=== PATIENT | male | born 1955 | race Asian ===

== ENCOUNTER 2018-03-17 16:04 | Outpatient (RCR) | payer OTHER, MEDICARE, MEDICAID, SELFPAY ==
--- NOTE | 2018-03-17 15:10 | PT.OTN ---
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 (03/17/18) Muscle weakness (generalized) (03/17/18) Paralytic gait (03/17/18) Physical Therapy Treatment Note PT-OP-A Visit Information Start: 03/17/18 14:45 Freq: Status: Active Protocol: Document 03/17/18 14:47 TMS (Rec: 03/17/18 15:10 TMS [email or web address]) Out-Patient Physical Therapy Visit Information Visit Information Visit Type Treatment Note Visit Start Time 11:45 Visit Stop Time 12:20 Total Visit Minutes 35 Visit Number Number of ADMINISTRATIVE FELLOW Visits 2 PT-OP-C Subjective Start: 03/17/18 14:45 Freq: Status: Active Protocol: Document 03/17/18 14:47 TMS (Rec: 03/17/18 15:10 TMS [email or web address]) OP-PT Subjective Patient Comments Patient Comments Daughter in law present for family training. Daughter in law states pt. was pushing heavily on cane with gait today, not walking as well. PT-OP-S Aquatic Treatment Start: 03/17/18 14:45 Freq: Status: Active Protocol: Document 03/17/18 14:47 TMS (Rec: 03/17/18 15:10 TMS [email or web address]) Aquatics Treatment Pool Entry/Exit Pool Entry/Exit Method Stairs Assistance Contact Guard Assistance Water Walking Sideways Water Level Chest Level Comments 1 pound weight on right ankle. Forwards Water Level Chest Level Level of Assistance Minimal Assistance Comments 1 pound weight on right ankle. Lower Extremity Stretches 1 Details Right hamstring Body Position Standing Water Level Waist Level Comments Manual stretching with pt. standing against wall. Upper Extremity Exercises 2 Details Right elbow stretch into extension Body Position Standing Comments Manually 1 Details Right shoulder abduction Body Position Standing Water Level Waist Level Comments Manually [place] Activities [place] Activities Bicycle Equipment Square blue float/neck float Duration 15 minutes Comments Min-Mod-A manual assist to keep aligned, 1 pound weight on bilateral ankles to help with alignment. Swim Strokes Backstroke Other Equipment Used Square blue float/ neck float Laps/Duration 10 minutes Other 1 Details Daughter in law Clara was instructed on how to assist. PT-OP-T Assessment and Plan Start: 03/17/18 14:45 Freq: Status: Active Protocol: Document 03/17/18 14:47 TMS (Rec: 05/14/18 15:10 TMS [email or web address]) Physical Therapy Assessment Assessment Summary Assessment Pt. had increased difficulty maintaining alignment in deep water today, decreased tone noted in right U.E. with stretching. Pt. was ready to stop therapy about 35 minutes, started walking up pool steps . When asked if he was having pain shook head yes and gestured to legs. Daughter in law aware, states he's not as stable with gait today. Physical Therapy Plan Frequency and Duration Frequency of Treatment 2x/Week Plan of Care Start Date 01/08/18 Plan of Care End Date 03/18/18 Next Visit Focus/Plan Next Visit Plan Continue with family training so family can assist pt. in pool. Daughter in law seemed comfortable with assisting him but will need continued training.
--- NOTE | 2018-09-21 11:18 | PT.OPDS ---
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 (03/17/18) Muscle weakness (generalized) (03/17/18) Paralytic gait (03/17/18) Provider Visit Care Team Role Provider Type Delfino Epstein MD Attending Provider Physician Family Provider Primary Care Provider Specialty: Family Practice Address: [address] [place] [address] Email: [email or web address] Visit Number Visit Number Discharge Summary PT-OP-C Subjective Start: 03/17/18 14:45 Freq: Status: Active Protocol: Document 03/17/18 14:47 TMS (Rec: 03/17/18 15:10 TMS [email or web address]) OP-PT Subjective Patient Comments Patient Comments Daughter in law present for family training. Daughter in law states pt. was pushing heavily on cane with gait today, not walking as well. PT-OP-T Assessment and Plan Start: 03/17/18 14:45 Freq: Status: Active Protocol: Document 09/21/18 11:17 SAK (Rec: 09/21/18 11:18 SAK [id number]) Physical Therapy Plan Discharge Physical Therapy Discharge Reasons Goals Met Discharge Comments Patient's family was instructed in how to assist patient with aquatic exercise program. They are independent . No further PT need at this time. May benefit from further PT in the future.
== END 2018-10-20 11:07 ==
LOC: PHYS 16:04
PROVIDERS: Family Provider Family Medicine; PCP Family Medicine; Visit Provider Family Medicine
DX: I63.512 Cerebral infarction due to unspecified occlusion or stenosis of left middle cerebral artery (principal); R26.1 Paralytic gait; M62.81 Muscle weakness (generalized)
CPT/HCPCS: 97113

== ENCOUNTER → 2018-05-19 11:09 | Outpatient (CLI) | payer OTHER, MEDICARE, MEDICAID, SELFPAY ==
[2018-05-19 12:45] LABS: Hemoglobin A1C% w Est Avg Glu 6.5 % (4.0-6.0)
[2018-05-19 12:55] LABS: BUN Creatinine Ratio 12.2 (6-22); Blood Urea Nitrogen 11 mg/dL (9-20); Calcium 8.8 mg/dL (8.4-10.2); Carbon Dioxide 29 mmol/L (22-32); Chloride 98 mmol/L (98-107); Estimated Glomerular Filt Rate > 60.0 mL/min (>60); Glucose 203 mg/dL (80-110); HEMOLYSIS < 15 (0-50); Potassium 4.2 mmol/L (3.4-5.1); Sodium 135 mmol/L (137-145)
[2018-05-19 13:24] LABS: Prostate Specific Antigen 0.539 ng/mL (0.10-4.00)
[2018-05-19 13:39] LABS: TSH w/ Reflex to FT4 0.32 uIU/mL (0.47-4.68)
[2018-05-19 14:21] LABS: Free T4, Direct Thyroxine 1.52 ng/dL (0.78-2.19)
== END ==
PROVIDERS: Family Provider Family Medicine; PCP Family Medicine; Visit Provider Urology
DX: N40.1 Benign prostatic hyperplasia with lower urinary tract symptoms (principal); E11.9 Type 2 diabetes mellitus without complications
CPT/HCPCS: 36415; 80048; 83036; 84153; 84439; 84443

== ENCOUNTER 2018-09-01 13:30 | Outpatient (RCR) | payer OTHER, MEDICARE, MEDICAID, SELFPAY ==
--- NOTE | 2018-04-16 13:41 | OT.OP.EVAL ---
Visit Care Team Role Provider Type Delfino Epstein MD Attending Provider Physician Family Provider Primary Care Provider Specialty: Family Practice Address: [address] [place] [address], [id number] Email: [email or web address] Occupational Therapy Initial Evaluation OT Outpatient Adult Evaluation Start: 04/14/18 14:28 Freq: Status: Active Protocol: Document 04/14/18 14:29 AMS (Rec: 04/14/18 14:29 AMS [email or web address]) General Information Referring Physician Delfino Epstein MD Reason for Referral Evaluate and treat per protocol Precautions PACEMAKER Visit Number 11/13 (g-codes); visits authorized per year Plan of Care Dates 04/14/18-07/07/18 Insurance Information 42 visits authorized per year; g-codes required Identification Confirmed Yes Parent/Guardian Concerns Bilingual Sales Assistant: increasing pain/ discomfort w/ A for ADLs Parent/Guardian Goals Caretakers: concerns re: posture Medical History Pt is a 62 year-old male presenting to outpatient OT four years s/p CVA w/ resulting right-sided hemiparesis. PMH: CVA; DM II; depression; HTN; [place]; Pacemaker; OA Previous Therapy/Therapies Yes History of Therapy Previous outpt OT; has UE sling to address right shoulder subluxation. However, lung puller denied current compliance w/ wearing of sling . Current Therapy/Therapies Yes: has outpt PT Social History Bilingual Sales Assistant reported that the patient and his have recently moved into [facility]'s Mother's home which has likely led to the decline in patient 's sitting and standing posture, as well as increasing complaints of pain/discomfort w/ self care (due to decreased proper positioning of upper extremity and decreased passive ranging of upper extremity). ADLs Comments Impaired; family and lung puller assists IADLs Comments Impaired; family and lung puller assists Cognition Comments Impaired Comments Impaired Posture Comments Impaired sitting; standing Comments Impaired Observations Spastic posturing of right UE in sitting and standing. Neglect of R UE. (+) subluxation of R shoulder; (+) R shoulder depression; (+ ) R shoulder IR; (+) R elbow flexion; (+) R forearm pronation; (+) R wrist in flexion w/ fingers in fist; Impaired R scapular mobility; lateral trunk shortening. Unable to execute R shoulder shrugs/circles; trace R scapular retraction Range of Motion Upper Extremity Functional Limits Right Impaired Impairments L UE AROM WFL Neurological Assessment - Adult Spasticity R UE spasticity. (-) self- directed tone management observed. (-) tolerance for assist w/ tone management. ROM - Shoulder Shoulder Left Shoulder ROM WFL Yes Forearm ROM Testing Position Sitting Right Active Shoulder ROM WFL No Forearm ROM Testing Position Sitting Shoulder Flex AROM (degrees) 0-35 Query Text: Shoulder Flex PROM (degrees) 0-90 Query Text: Shoulder Ext AROM (degrees) 0-0 Shoulder Ext PROM (degrees) 0-40 Shoulder Abd AROM (degrees) 0-0 Shoulder Abd PROM (degrees) 0-60 Shoulder ER AROM (degrees) 0-0 Shoulder ER PROM (degrees) 0-60 Comments Passive and active ROM measurements taken within pain -free ROM. ROM - Elbow/Forearm Elbow/Forearm Measured in Degrees Left Elbow/Forearm ROM WFL Yes ROM Testing Position Sitting Right Elbow/Forearm ROM WFL No ROM Testing Position Sitting Elbow Flex AROM (degrees) -45-110 (60) Elbow Flex PROM (degrees) -45-135 (90) Elbow Ext AROM (degrees) 0 Elbow Ext PROM (degrees) 135-45 (90) Forearm Pron AROM (degrees) 0-90 Forearm Sup AROM (degrees) 0 Forearm Sup PROM (degrees) 0 (did not tolerate) ROM - Wrist Wrist Range of Motion Measured in Degrees Left ROM Testing Position Sitting Wrist ROM WFL Yes Right ROM Testing Position Sitting Wrist Flex AROM (degrees) 0 Wrist Flex PROM (degrees) 0 (did not tolerate) Wrist Ext AROM Fingers Open (degrees) 0 Wrist Ext PROM Fingers Open (degrees) 0 (did not tolerate) Wrist Ext AROM Fingers Flexed (degrees) 0 Wrist Ext PROM Fingers Flexed (degrees) 0 (did not tolerate) Ulnar Deviation AROM (degrees) 0 Ulnar Deviation PROM (degrees) 0 (did not tolerate) Radial Deviation AROM (degrees) 0 Radial Deviation PROM (degrees) 0 (did not tolerate) Wrist ROM WFL No Goals Objective Measurements (-) functional abilities of right hand; did not tolerate PROM of digits date of evaluation. Will assess at time of next treatment session . Treatment Home exercise program. Patient and lung puller education re: positioning of R UE at rest. Scapular retraction/squeezes in standing and/or sitting as tolerated by patient. Sitting options to promote upright sitting posture and proper positioning of UE to maintain UE AROM and minimize formation of contractures which would negatively impact family/ caretakers' abilities to assist patient with functional tasks. Short Term Goals 1. Patient will demonstrate 20 degrees active right elbow extension. 2. Patient will demonstrate 10 degrees active right shoulder extension. 3. Patient will be able to execute x 10 consecutive bilateral scapular squeezes in order to improve upon static sitting posture. Sap Bpc Architect Goals 1. Patient and lung puller will be modified independent with execution of right upper extremity home exercise program utilizing provided written and visual instructions. 2. Patient and lung puller will verbalize 100% understanding in regards to positioning of right upper extremity at rest to maintain available ROM and/ or minimize further loss of ROM. 3. Patient will be able to obtain and maintain upright static sitting posture x 3 minutes in chair with bilateral arm rests, without rest breaks and without right upper extremity resting on stomach, requiring minimal verbal cues from therapist. 3. Patient will demonstrate 30 degrees active right shoulder extension. Assessment/Plan Patient Response Fair Rehabilitation Potential Fair Impairments Identified ADLs Balance Body Mechanics Cognition Coordination/Dexterity Functional Activities Motor Function Pain Weakness Posture Range of Motion Recreational Activities Meaningful Activities Spasticity Stiffness Insight Soft Tissue Mobility Motor Planning Eye-Hand Coordination Treatment Assessment Pt is a 62 year-old male presenting to outpatient OT four years s/p CVA w/ resulting right-sided hemiparesis. PMH: CVA; DM II; depression; HTN; [place]; Pacemaker ; OA. Bilingual Sales Assistant reported that the patient and his have recently moved into [facility]'s Mother's home which has likely led to the decline in patient 's sitting and standing posture, as well as increasing complaints of pain/discomfort w/ self care (due to decreased proper positioning of upper extremity and decreased passive ranging of upper extremity). Findings: Decreased ROM of right upper extremity; neglect of R UE; subluxation of right shoulder; (-) use of subluxation sling with mobility; decreased insight; impaired body awareness and orientation to midline; decreased functional independence; impaired motor planning; spasticity; weakness ; impaired posture in sitting and standing; and reported increasing pain/discomfort w/ assist by lung puller's with completion of functional ADL tasks. Outpt OT recommended to address these areas w/ focus on lung puller education to maintain UE AROM and minimize formation of contractures which would negatively impact family/caretakers' abilities to assist patient with functional tasks. Home Exercise Program Patient and lung puller education re: positioning of R UE at rest. Scapular retraction/squeezes in standing and/or sitting as tolerated by patient. Sitting options to promote upright sitting posture and proper positioning of UE to maintain UE AROM and minimize formation of contractures which would negatively impact family/ caretakers' abilities to assist patient with functional tasks. Reviewed with Patient Home Exercise Program Patient Understanding Fair Comment 12 weeks Treatment Frequency Once a Week Treatment Emphasis Next Session Assess ROM of hand as tolerated Therapeutic Contents Active Range of Motion Adaptive Equipment Education Client Education Cognitive Skills Development Functional Activities Home Exercise Program Joint Protection Manual Therapy Education Neuromuscular Re-Education Self-Care Stretching/Flexibility Activities Therapeutic Activities Therapeutic Exercises Modalities Sensory Re-education Modalities As Needed As Described Patient Instruction Home Exercise Program Plan of Care Questions/Concerns Comment Consult w/ PT Please Sign and Return: I have reviewed this Plan of Care and certify that the skilled therapy services above are required to meet the patient?s needs. Physician Signature Date Printed Name and Credentials Clinical Instructor Signature Printed Name and Credentials
--- NOTE | 2018-04-28 15:36 | OT.OP.TRT ---
Visit Care Team Role Provider Type Delfino Epstein MD Attending Provider Physician Family Provider Primary Care Provider Specialty: Family Practice Address: [address] [place] [address], [address] Email: [email or web address] Occupational Therapy Treatment Note OT Outpatient Treatment Note - Adult Start: 04/28/18 15:20 Freq: Status: Active Protocol: Document 04/28/18 15:20 AMS (Rec: 04/28/18 15:36 AMS [email or web address]) OT Outpatient Adult Treatment Note Session Time Visit Start Time 13:30 Visit Stop Time 14:18 Total Visit Minutes 48 Visit Information Visit Number 12/14 (g-codes); visits authorized per year Plan of Care Dates 04/14/18-07/07/18 Insurance Information 42 visits authorized per year; g-codes required Setting Treatment Setting Outpatient Care Visit Type Note Type Treatment Note General Information General Information Pt is a 62 year-old male presenting to outpatient OT four years s/p CVA w/ resulting right-sided hemiparesis. PMH: CVA; DM II; depression; HTN; [place]; Pacemaker; OA - Subjective Identification Type Name Identification Reconciled With Medical Record Others Present Family Observations Patient was accompanied by his to OT treatment session. Chief Complaint(s) Restricts Loss of Function Marked Degree Patient/Caregiver Compliance with Home Good Exercise Program Comments w/ family support - Objective Objective Measurements Please see below for progress towards meeting established OT goals. Improved tolerance for PROM. Improved ability to execute scapular pinches x 3 sets of 10 repetitions. Max verbal cues required relative to sitting and standing posture. Poor self-directed tone management/execution of exercises. However, (+) caregiver/family support. Short Term Goals 1. Patient will demonstrate 20 degrees active right elbow extension. 04/28/18= 25% met 2. Patient will demonstrate 10 degrees active right shoulder extension. 04/28/18= 25% met 3. Patient will be able to execute x 10 consecutive bilateral scapular squeezes in order to improve upon static sitting posture. 04/28/18= 25% met Fdc Goals 1. Patient and java performance engineer will be modified independent with execution of right upper extremity home exercise program utilizing provided written and visual instructions. 04/28/18= 25% met 2. Patient and java performance engineer will verbalize 100% understanding in regards to positioning of right upper extremity at rest to maintain available ROM and/ or minimize further loss of ROM. 04/28/18= 25% met 3. Patient will be able to obtain and maintain upright static sitting posture x 3 minutes in chair with bilateral arm rests, without rest breaks and without right upper extremity resting on stomach, requiring minimal verbal cues from therapist. = 25% met 4. Patient will demonstrate 30 degrees active right shoulder extension. 04/28/18= 25% met - Treatment 3 Descriptor Environmental positioning R shoulder propped in sh abd on bedside table x 7 min w/ heat Skin intact pre- and post- treatment 2 Descriptor Tone Management Resistance provided by therapist 1 Descriptor HEP/Education Instructed in positioning of UE away from body w/ ues of heat on shoulder Scapular pinches, lateral neck stretch (focus on positioning of head relative to trunk - tendency towards chin protrusion), shoulder extension, shoulder elevation/ roll-backs. Complexity Upgraded Exercises 8 Descriptor Lateral neck stretch Side Right Body Position Sitting Sets 3 Repetitions 5-8 sec hold 7 Descriptor Shoulder flexion/extension Pendulum PROM Side Right 6 Descriptor Shoulder abduction PROM Side Right 5 Descriptor Shoulder extension Side Right Body Position Sitting Sets 3 Repetitions 10 4 Descriptor Elbow extension Side Right Body Position Sitting Sets 3 Repetitions 10 3 Descriptor Backwards shoulder shrugs Side Both Body Position Sitting Sets 3 Repetitions 10 2 Descriptor Shoulder elevation Side Both Body Position Sitting Sets 3 Repetitions 10 1 Descriptor Scapular pinches Side Both Body Position Sitting Sets 3 Repetitions 10 - Assessment Patient Response to Treatment Fair Rehab Potential Fair Impairments Identified ADLs Balance Body Mechanics Cognition Contractures Coordination/Dexterity Flexibility Functional Activities Motor Function Pain Weakness Posture Range of Motion Recreational Activities Meaningful Activities Spasticity Stiffness Insight Soft Tissue Mobility Motor Planning Eye-Hand Coordination Assessment of Improvement Improved tolerance for PROM. Improved ability to execute scapular pinches x 3 sets of 10 repetitions. Max verbal cues required relative to sitting and standing posture. Poor self-directed tone management/execution of exercises. However, (+) caregiver/family support. Home Exercise Program Advanced. Instructed in positioning of UE away from body with use of heat on shoulder. Reviewed scapular pinches, lateral neck stretch (focus on positioning of head relative to trunk - tendency towards chin protrusion), shoulder extension, shoulder elevation/roll-backs. Patient and denied questions. Reviewed with Patient/Caregiver Goals Progress Being Made Home Exercise Program Patient/Caregiver Understanding Good - Plan Therapy Recommendations Continue with Current Program Advance per Rehabilitation Protocol Additional Therapy Recommendations Consult w/ PT
--- NOTE | 2018-05-05 15:09 | OT.OP.TRT ---
Visit Care Team Role Provider Type Delfino Epstein MD Attending Provider Physician Family Provider Primary Care Provider Specialty: Family Practice Address: [address] [place] [address], [id number] Email: [email or web address] Occupational Therapy Treatment Note OT Outpatient Treatment Note - Adult Start: 04/28/18 15:20 Freq: Status: Active Protocol: Document 05/05/18 14:54 AMS (Rec: 05/05/18 15:08 AMS [email or web address]) OT Outpatient Adult Treatment Note Session Time Visit Start Time 13:35 Visit Stop Time 14:20 Total Visit Minutes 45 Visit Information Visit Number 01/11 (g-codes); 3/ visits authorized per year Plan of Care Dates 04/14/18-07/07/18 Insurance Information 42 visits authorized per year; g-codes required Setting Treatment Setting Outpatient Care Visit Type Note Type Treatment Note General Information General Information Pt is a 62 year-old male presenting to outpatient OT four years s/p CVA w/ resulting right-sided hemiparesis. PMH: CVA; DM II; depression; HTN; [place]; Pacemaker; OA - Subjective Identification Type Name Identification Reconciled With Medical Record Others Present Family Observations Patient was accompanied by his to OT treatment session. He was sleeping more this past weekend. His blood sugar was [address] too high per . Chief Complaint(s) Restricts Loss of Function Marked Degree Patient/Caregiver Compliance with Home Good Exercise Program Comments w/ family support - Objective Objective Measurements Please see below for progress towards meeting established OT goals. Improved tolerance for PROM; improved sitting and standing static posture. Poor trunk rotation. Poor neck mobility; decreased active use of available ROM. Decreased visual fixation w/ engagement in nonverbal exchanges w/ therapist and/or individuals in his environment. Whole body movements w/ keeping body in central plane. Poor self- directed tone management/ execution of exercises; however, patient does have (+) caregiver/family support. Improved neck rotation, neck extension, trunk rotation, lateral trunk lengthening L side, lateral neck flexion following education and practice in treatment session. Short Term Goals 1. Patient will demonstrate 20 degrees active right elbow extension. 05/05/18= 25% met 2. Patient will demonstrate 10 degrees active right shoulder extension. 05/05/18= 25% met 3. Patient will be able to execute x 10 consecutive bilateral scapular squeezes in order to improve upon static sitting posture. 05/05/18= 50% met Linotype Worker Goals 1. Patient and new accounts banking representative will be modified independent with execution of right upper extremity home exercise program utilizing provided written and visual instructions. 05/05/18= 25% met 2. Patient and new accounts banking representative will verbalize 100% understanding in regards to positioning of right upper extremity at rest to maintain available ROM and/ or minimize further loss of ROM. 05/05/18= 25% met 3. Patient will be able to obtain and maintain upright static sitting posture x 3 minutes in chair with bilateral arm rests, without rest breaks and without right upper extremity resting on stomach, requiring minimal verbal cues from therapist. 05/05/18= 50% met 4. Patient will demonstrate 30 degrees active right shoulder extension. 05/05/18= 25% met - Treatment 4 Descriptor Functional movements - neck/ trunk Focus on visual fixation w/ engagement in interactions Complexity Upgraded 3 Descriptor Environmental positioning R shoulder propped in sh abd on bedside table, elbow ext, forearm neutral x 10 min w/ heat Education re: positioning in at least neutral forearm Skin intact pre- and post- treatment Complexity Upgraded 2 Descriptor Tone Management Resistance provided by therapist 1 Descriptor HEP/Education Instructed in positioning of UE in forearm in neutral - thumb up Trunk rotation Neck movement Lateral trunk extension Visual fixation w/ tracking via environmental modifications as needed to encourage trunk movement Complexity Upgraded Exercises 8 Descriptor Neck ext Neck rotation Lateral neck flex/ext Side Both Body Position Sitting Sets 2 Repetitions 5-8 sec hold Modifications Required Yes Complexity Upgraded 7 Descriptor Shoulder - PROM Flexion/extension ER Hor abd Abd Side Right Body Position Sitting Complexity No Change 6 Descriptor Shoulder Pendulum Shrugs Rolls backwards Side Both Body Position Sitting Sets 2 Repetitions 10 Complexity Upgraded 4 Descriptor Elbow extension Side Right Body Position Sitting Sets 3 Repetitions 10 Complexity No Change 3 Descriptor Trunk rotation Lat trunk ext/flex Side Both Body Position Sitting Sets 1 Repetitions 5 Complexity Upgraded 2 Descriptor Trunk stretch Ball - leaning back Side Both Body Position Sitting Sets 1 Repetitions 5 Complexity Upgraded 1 Descriptor Scapular pinches Side Both Body Position Sitting Sets 3 Repetitions 10 Complexity No Change - Assessment Patient Response to Treatment Fair Rehab Potential Fair Impairments Identified ADLs Balance Body Mechanics Cognition Contractures Coordination/Dexterity Flexibility Functional Activities Motor Function Pain Weakness Posture Range of Motion Recreational Activities Meaningful Activities Spasticity Stiffness Insight Soft Tissue Mobility Motor Planning Eye-Hand Coordination Assessment of Improvement Improved tolerance for PROM; improved sitting and standing static posture. Poor trunk rotation. Poor neck mobility; decreased active use of available ROM. Decreased visual fixation w/ engagement in nonverbal exchanges w/ therapist and/or individuals in his environment. Whole body movements w/ keeping body in central plane. Poor self- directed tone management/ execution of exercises; however, patient does have (+) caregiver/family support. Improved neck rotation, neck extension, trunk rotation, lateral trunk lengthening L side, lateral neck flexion following education and practice in treatment session. Home Exercise Program Advanced. Instructed in positioning of UE in forearm in neutral with thumb up with shoulder in abduction w/ use of heat. Instructed in modification of environment/ activities to support trunk rotation and neck movement. Reviewed with Patient/Caregiver Goals Progress Being Made Home Exercise Program Patient/Caregiver Understanding Good - Plan Therapy Recommendations Continue with Current Program Advance per Rehabilitation Protocol Additional Therapy Recommendations Consult w/ PT
--- NOTE | 2018-05-13 08:17 | OT.OP.TRT ---
Visit Care Team Role Provider Type Delfino Epstein MD Attending Provider Physician Family Provider Primary Care Provider Specialty: Family Practice Address: [address] [place] [address], [id number] Email: [email or web address] Occupational Therapy Treatment Note OT Outpatient Treatment Note - Adult Start: 04/28/18 15:20 Freq: Status: Active Protocol: Document 05/12/18 14:30 AMS (Rec: 05/13/18 08:16 AMS [email or web address]) OT Outpatient Adult Treatment Note Session Time Visit Start Time 13:35 Visit Stop Time 14:20 Total Visit Minutes 45 Visit Information Visit Number 02/11 (g-codes); visits authorized per year Plan of Care Dates 04/14/18-07/07/18 Insurance Information 42 visits authorized per year; g-codes required Setting Treatment Setting Outpatient Care Visit Type Note Type Treatment Note General Information General Information Pt is a 62 year-old male presenting to outpatient OT four years s/p CVA w/ resulting right-sided hemiparesis. PMH: CVA; DM II; depression; HTN; [place]; Pacemaker; OA - Subjective Identification Type Name Identification Reconciled With Medical Record Others Present Family Observations Patient was accompanied by his to OT treatment session. He has sleeping a lot more again. I don't know if he has a bug or not so I am watching him very closely per . Chief Complaint(s) Restricts Loss of Function Marked Degree Patient/Caregiver Compliance with Home Good Exercise Program Comments w/ family support - Objective Objective Measurements Please see below for progress towards meeting established OT goals. Improved tolerance for PROM; improved sitting posture w/ cueing to sit away from back of chair. Education re: seating in the home revisited. Decreased active trunk rotation w/ functional movement. Decreased active use of available ROM relative to trunk/neck to interact w/ environment; (+) guarding noted in standing. Chin protrusion, forward neck flexion, rounding of shoulders noted w/ static standing w/ avoidance of full neck extension. believes that he is 'afraid of falling and he thinks he will fall if he brings his neck back'. Improved visual fixation w/ engagement in nonverbal exchanges w/ therapist and/or individuals in his environment compared to previous treatment session. Poor self- directed tone management/ execution of exercises; however, patient does have (+) caregiver/family support and requires cueing. Decreased ability to actively extend elbow; poor grasping of objects. Upgraded exercises/ activities appropriately. Short Term Goals 1. Patient will demonstrate 20 degrees active right elbow extension. 7= 25% met 2. Patient will demonstrate 10 degrees active right shoulder extension. 7= 25% met 3. Patient will be able to execute x 10 consecutive bilateral scapular squeezes in order to improve upon static sitting posture. 7= 50% met Unit Control Clerk Goals 1. Patient and reservoir caretaker will be modified independent with execution of right upper extremity home exercise program utilizing provided written and visual instructions. 7= 25% met 2. Patient and reservoir caretaker will verbalize 100% understanding in regards to positioning of right upper extremity at rest to maintain available ROM and/ or minimize further loss of ROM. 05/05/18= 25% met 3. Patient will be able to obtain and maintain upright static sitting posture x 3 minutes in chair with bilateral arm rests, without rest breaks and without right upper extremity resting on stomach, requiring minimal verbal cues from therapist. 712/22= 50% met 4. Patient will demonstrate 30 degrees active right shoulder extension. 05/05/18= 25% met - Treatment 4 Descriptor Functional movements - neck/ trunk Modifications Required Yes Complexity No Change 3 Descriptor Environmental positioning R shoulder propped in sh abd on bedside table, elbow ext, forearm neutral x 10 min w/ heat Skin intact pre- and post- treatment Complexity No Change 2 Descriptor Tone Management Resistance provided by therapist Modifications Required Yes Complexity No Change 1 Descriptor HEP/Education Instructed in positioning of UE Trunk rotation Neck movement Lateral trunk extension Visual fixation Auditory feedback w/ grasp w/ elbow ext Modifications Required Yes Complexity Upgraded Exercises 8 Descriptor Neck ext Neck rotation Lateral neck flex/ext Side Both Body Position Sitting Sets 2 Repetitions 5-8 sec hold Modifications Required Yes Complexity Upgraded 7 Descriptor Shoulder - PROM Flexion/extension ER Hor abd Abd Side Right Body Position Sitting Modifications Required Yes Complexity No Change 6 Descriptor Shoulder Pendulum Shrugs Rolls backwards Side Both Body Position Sitting Sets 1 Repetitions 10 Modifications Required Yes Complexity No Change 4 Descriptor Elbow extension Auditory feedback - cylindrical grasp Side Right Body Position Sitting Sets 3 Repetitions 10 Modifications Required Yes Complexity Upgraded 3 Descriptor Trunk rotation Lat trunk ext/flex Trunk extension Trunk ext L --> R shift back to center Side Both Body Position Sitting Sets 1 Repetitions 10 Modifications Required Yes Complexity Upgraded 2 Descriptor Trunk stretch Ball - leaning back Side Both Body Position Sitting Sets 1 Repetitions 5 Modifications Required Yes Complexity Upgraded 1 Descriptor Scapular pinches w/ sh ext w/ rowing static squeezing sitting Side Both Body Position Sitting Sets 1 Repetitions 10 Modifications Required Yes Complexity Upgraded - Assessment Patient Response to Treatment Fair Rehab Potential Fair Impairments Identified ADLs Balance Body Mechanics Cognition Contractures Coordination/Dexterity Flexibility Functional Activities Motor Function Pain Weakness Posture Range of Motion Recreational Activities Meaningful Activities Spasticity Stiffness Insight Soft Tissue Mobility Motor Planning Eye-Hand Coordination Assessment of Improvement Improved sitting posture w/ support. Decreased active trunk rotation w/ functional movement. Decreased active use of available ROM relative to trunk/neck to interact w/ environment; (+) guarding noted in standing. Improved visual fixation w/ engagement in nonverbal exchanges w/ therapist compared to previous treatment session. Poor self- directed tone management/ execution of exercises. Decreased ability to actively extend elbow. Decreased functional use of the UE; neglect of UE. Increased reliance on L UE. Home Exercise Program Advanced. Please refer to treatment section above for additional details. Patient and denied questions. Reviewed with Patient/Caregiver Goals Progress Being Made Home Exercise Program Patient/Caregiver Understanding Good - Plan Therapy Recommendations Continue with Current Program Advance per Rehabilitation Protocol Additional Therapy Recommendations Consult w/ PT
--- NOTE | 2018-06-03 12:54 | OT.OP.TRT ---
Visit Care Team Role Provider Type Delfino Epstein MD Attending Provider Physician Family Provider Primary Care Provider Specialty: Family Practice Address: [address] [place] [address], [id number] Email: [email or web address] Occupational Therapy Treatment Note OT Outpatient Treatment Note - Adult Start: 04/28/18 15:20 Freq: Status: Active Protocol: Document 06/02/18 14:22 AMS (Rec: 06/03/18 12:54 AMS [id number]) OT Outpatient Adult Treatment Note Session Time Visit Start Time 13:35 Visit Stop Time 14:21 Total Visit Minutes 46 Visit Information Visit Number 03/13 (g-codes); /42 visits authorized per year Plan of Care Dates 04/14/18-07/07/18 Insurance Information 42 visits authorized per year; g-codes required Setting Treatment Setting Outpatient Care Visit Type Note Type Treatment Note General Information General Information Pt is a 62 year-old male presenting to outpatient OT four years s/p CVA w/ resulting right-sided hemiparesis. PMH: CVA; DM II; depression; HTN; [place]; Pacemaker; OA - Subjective Identification Type Name Identification Reconciled With Medical Record Others Present Family Observations Patient was accompanied by his and granddaughter to OT session. We have just got his arthritis medication back on board. He seems to be listening up a little bit more now per . I finally just changed the seating arrangements in the house to help him with his posture. He has starting doing his neck exercises again that Mallory gave him per . Chief Complaint(s) Restricts Loss of Function Marked Degree Patient/Caregiver Compliance with Home Good Exercise Program Comments w/ family support - Objective Objective Measurements Please see below for progress towards meeting established OT goals. Improved tolerance for PROM; improved sitting posture w/ cueing to sit away from back of chair. Improving active trunk rotation in both directions while seated; thus, introduced standing trunk rotation/trunk flexion/ extension w/ use of visual mirror feedback. Chin protrusion, forward neck flexion, rounding of shoulders noted w/ static standing w/ avoidance of full neck extension; this is also observed in standing. Poor self-directed tone management/ execution of exercises. Decreased ability to actively extend elbow; poor grasping of objects. R sided neglect. Increased reliance on L UE. Short Term Goals 1. Patient will demonstrate 20 degrees active right elbow extension. 06/02/18= 25% met 2. Patient will demonstrate 10 degrees active right shoulder extension. 06/02/18= 25% met 3. Patient will be able to execute x 10 consecutive bilateral scapular squeezes in order to improve upon static sitting posture. = 50% met Care Home Goals 1. Patient and cigarette packer will be modified independent with execution of right upper extremity home exercise program utilizing provided written and visual instructions. 06/02/18= 25% met 2. Patient and cigarette packer will verbalize 100% understanding in regards to positioning of right upper extremity at rest to maintain available ROM and/ or minimize further loss of ROM. 06/02/18= 25% met 3. Patient will be able to obtain and maintain upright static sitting posture x 3 minutes in chair with bilateral arm rests, without rest breaks and without right upper extremity resting on stomach, requiring minimal verbal cues from therapist. = 50% met. 2 minutes 4. Patient will demonstrate 30 degrees active right shoulder extension. 05/05/18= 25% met - Treatment 4 Descriptor Functional movements - neck/ trunk Modifications Required Yes Complexity No Change 3 Descriptor Environmental positioning R shoulder propped in sh abd on bedside table, elbow ext, forearm neutral x 10 min w/ heat Skin intact pre- and post- treatment Complexity No Change 2 Descriptor Tone Management Resistance provided by therapist Modifications Required Yes Complexity No Change 1 Descriptor HEP Recommended trunk exercises in standing w/ visual mirror feedback utilized as needed/as available Modifications Required Yes Complexity Upgraded Exercises 8 Descriptor Neck ext Neck rotation Lateral neck flex/ext Side Both Body Position Sitting Sets 2 Repetitions 5-8 sec hold Modifications Required Yes Complexity No Change 7 Descriptor Shoulder - PROM Flexion/extension ER Hor abd Abd Side Right Body Position Sitting Modifications Required Yes Complexity No Change 6 Descriptor Shoulder Pendulum Shrugs Rolls backwards Side Both Body Position Sitting Sets 1 Repetitions 10 Modifications Required Yes Complexity No Change 4 Descriptor Elbow extension Side Right Body Position Sitting Sets 3 Repetitions 10 Modifications Required Yes Complexity No Change 3 Descriptor Trunk rotation Lat trunk ext/flex Trunk extension Trunk ext L --> R shift back to center Trunk twist standing Trunk tilts standing Side Both Body Position Sitting Sets 1 Repetitions 10 Modifications Required Yes Complexity Upgraded 2 Descriptor Trunk stretch Ball - not completed 06/02/18 Side Both Body Position Sitting Sets 1 Repetitions 5 Modifications Required Yes Complexity Upgraded 1 Descriptor Scapular pinches w/ sh ext w/ rowing static squeezing sitting Side Both Body Position Sitting Sets 1 Repetitions 10 Modifications Required Yes Complexity No Change - Assessment Patient Response to Treatment Fair Rehab Potential Fair Impairments Identified ADLs Balance Body Mechanics Cognition Contractures Coordination/Dexterity Flexibility Functional Activities Motor Function Pain Weakness Posture Range of Motion Recreational Activities Meaningful Activities Spasticity Stiffness Insight Soft Tissue Mobility Motor Planning Eye-Hand Coordination Assessment of Improvement Improving trunk rotation while seated; upgraded to standing w/ use of visual mirror feedback. Decreased active use of available ROM relative to UE/trunk. Poor self-directed tone management/execution of exercises. Decreased ability to actively extend elbow. Decreased functional use of the UE; neglect of UE. Increased reliance on L UE. Home Exercise Program Advanced. Please refer to treatment section above for additional details. Patient and denied questions. Reviewed with Patient/Caregiver Goals Progress Being Made Home Exercise Program Patient/Caregiver Understanding Good - Plan Therapy Recommendations Continue with Current Program Advance per Rehabilitation Protocol Additional Therapy Recommendations Consult w/ PT
--- NOTE | 2018-06-12 14:52 | OT.OP.TRT ---
Visit Care Team Role Provider Type Delfino Epstein MD Attending Provider Physician Family Provider Primary Care Provider Specialty: Family Practice Address: [address] [place] [address], [id number] Email: [email or web address] Occupational Therapy Treatment Note OT Outpatient Treatment Note - Adult Start: 04/28/18 15:20 Freq: Status: Active Protocol: Document 06/09/18 15:30 AMS (Rec: 06/12/18 14:52 AMS [id number]) OT Outpatient Adult Treatment Note Session Time Visit Start Time 13:35 Visit Stop Time 14:20 Total Visit Minutes 45 Visit Information Visit Number 04/13 (g-codes); visits authorized per year Plan of Care Dates 04/14/18-07/07/18 Insurance Information 42 visits authorized per year; g-codes required Setting Treatment Setting Outpatient Care Visit Type Note Type Treatment Note General Information General Information Pt is a 62 year-old male presenting to outpatient OT four years s/p CVA w/ resulting right-sided hemiparesis. PMH: CVA; DM II; depression; HTN; [place]; Pacemaker; OA - Subjective Identification Type Name Identification Reconciled With Medical Record Others Present Family Observations Patient was accompanied by his to OT treatment session. I feel like his sitting posture is getting better. He is still having a hard time in standing. Chief Complaint(s) Restricts Loss of Function Marked Degree Patient/Caregiver Compliance with Home Good Exercise Program Comments w/ family support - Objective Objective Measurements Please see below for progress towards meeting established OT goals. Improved tolerance for PROM; improved sitting posture w/ cueing to sit away from back of chair. Improving active trunk rotation in both directions while seated; thus, introduced standing trunk rotation/trunk flexion/ extension w/ use of visual mirror feedback. Chin protrusion, forward neck flexion, rounding of shoulders noted w/ static standing w/ avoidance of full neck extension; this is also observed in standing. Poor self-directed tone management/ execution of exercises. Decreased ability to actively extend elbow; poor grasping of objects. R sided neglect. Increased reliance on L UE. Short Term Goals 1. Patient will demonstrate 20 degrees active right elbow extension. 06/02/18= 25% met 2. Patient will demonstrate 10 degrees active right shoulder extension. 06/02/18= 25% met 3. Patient will be able to execute x 10 consecutive bilateral scapular squeezes in standing, without use of compensatory strategies and/or demonstration of loss of balance, in order to improve upon static standing posture. 06/09/18= GOAL UPGRADED GOALS MET: Pt executed 10 bilateral scapular squeezes in sitting. *MET 06/09/18 Residential Goals 1. Patient and bitumen plant operator will be modified independent with execution of right upper extremity home exercise program utilizing provided written and visual instructions. 06/02/18= 25% met 2. Patient and bitumen plant operator will verbalize 100% understanding in regards to positioning of right upper extremity at rest to maintain available ROM and/ or minimize further loss of ROM. 06/09/18= 25% met 3. Patient will demonstrate 30 degrees active right shoulder extension. 05/05/18= 25% met 4. Patient will be able to obtain and maintain upright static standing posture at midline x 1 minute, x 2 separate trials, in order to maximize functional success in standing with daily task completion with active use of the left upper extremity with object manipulation. 06/09/18= GOAL UPGRADED GOALS MET: Pt was able to maintain upright static sitting posture x 3 minutes without rest breaks. *MET 06/09/18 - Treatment 4 Descriptor Functional movements - neck/ trunk Modifications Required Yes Complexity No Change 3 Descriptor Environmental positioning R shoulder propped in sh abd on bedside table, elbow ext, forearm neutral x 10 min w/ heat Skin intact pre- and post- treatment Complexity No Change 2 Descriptor Tone Management Resistance provided by therapist Modifications Required Yes Complexity No Change 1 Descriptor HEP Orientation to midline Exercises in standing vs. sitting Modifications Required Yes Complexity Upgraded Exercises 9 Descriptor Orientation to midline 'x' shoulders out <-> back in Side Both Body Position Standing Sets 1 Repetitions 10 Complexity Upgraded 8 Descriptor Neck ext Neck rotation Lateral neck flex/ext Side Both Body Position Standing Sets 2 Repetitions 5-8 sec hold Modifications Required Yes Complexity Upgraded 7 Descriptor Shoulder - PROM Flexion/extension ER Hor abd Abd Side Right Body Position Sitting Modifications Required Yes Complexity No Change 6 Descriptor Shoulder Pendulum Shrugs Rolls backwards Side Both Body Position Standing Sets 1 Repetitions 10 Modifications Required Yes Complexity Upgraded 4 Descriptor Elbow extension Side Right Body Position Sitting Sets 3 Repetitions 10 Modifications Required Yes Complexity No Change 3 Descriptor Standing: Trunk rotation Lat trunk ext/flex Sitting: Trunk ext/neck ext Trunk ext L --> R shift back to center - 1 leg Side Both Sets 1 Repetitions 10 Modifications Required Yes Complexity Upgraded 2 Descriptor Trunk stretch Ball - not completed 06/02/18 Side Both Body Position Sitting Sets 1 Repetitions 5 Modifications Required Yes Complexity Upgraded 1 Descriptor Scapular pinches w/ sh ext w/ rowing Side Both Body Position Standing Sets 1 Repetitions 10 Modifications Required Yes Complexity Upgraded - Assessment Patient Response to Treatment Fair Rehab Potential Fair Impairments Identified ADLs Balance Body Mechanics Cognition Contractures Coordination/Dexterity Flexibility Functional Activities Motor Function Pain Weakness Posture Range of Motion Recreational Activities Meaningful Activities Spasticity Stiffness Insight Soft Tissue Mobility Motor Planning Eye-Hand Coordination Assessment of Improvement Improving sitting posture. Improving ability to maintain sitting posture. Impaired standing posture. Decreased orientation to midline. Decreased active use of available ROM relative to UE/ trunk. Poor self-directed tone management/execution of exercises. Decreased ability to actively extend elbow. Decreased functional use of the UE; neglect of UE. Increased reliance on L UE. Home Exercise Program Advanced. Please refer to treatment section above for additional details. Patient and denied questions. Reviewed with Patient/Caregiver Goals Progress Being Made Home Exercise Program Patient/Caregiver Understanding Good - Plan Therapy Recommendations Continue with Current Program Advance per Rehabilitation Protocol
--- NOTE | 2018-06-16 14:51 | OT.OP.TRT ---
Visit Care Team Role Provider Type Delfino Epstein MD Attending Provider Physician Family Provider Primary Care Provider Specialty: Family Practice Address: [address] [place] [address], [id number] Email: [email or web address] Occupational Therapy Treatment Note OT Outpatient Treatment Note - Adult Start: 04/28/18 15:20 Freq: Status: Active Protocol: Document 06/16/18 14:41 AMS (Rec: 06/16/18 14:49 AMS [email or web address]) OT Outpatient Adult Treatment Note Session Time Visit Start Time 13:35 Visit Stop Time 14:20 Total Visit Minutes 45 Visit Information Visit Number 05/13 (g-codes); visits authorized per year Plan of Care Dates 04/14/18-07/07/18 Insurance Information 42 visits authorized per year; g-codes required Setting Treatment Setting Outpatient Care Visit Type Note Type Treatment Note General Information General Information Pt is a 62 year-old male presenting to outpatient OT four years s/p CVA w/ resulting right-sided hemiparesis. PMH: CVA; DM II; depression; HTN; [place]; Pacemaker; OA - Subjective Identification Type Name Identification Reconciled With Medical Record Others Present Family Observations We are still working on his posture even though I have changed all the seating in the house per . Pt was accompanied by his to OT treatment session. Chief Complaint(s) Restricts Loss of Function Marked Degree Patient/Caregiver Compliance with Home Good Exercise Program Comments w/ family support - Objective Objective Measurements Please see below for progress towards meeting established OT goals. Improved sitting posture; however, trace/ minimal WB through R hip in static/dynamic sitting. Improved WB through R hip following isometric exercise at shoulder and pillow exercise. (+) Crossing of L LE over R LE. Discussed positioning options in the home to encourage weight shifting; recommended w/ crossing but also w/ both feet flat on floor to carry-over to [id number]. (+) rotation of whole body to the left. Shortening of R trunk due to unequal WB in sitting/standing . Chin protrusion, forward neck flexion, rounding of shoulders noted w/ static standing. Poor self-directed tone management/execution of exercises. Decreased ability to actively extend elbow; poor grasping of objects. R sided neglect. Increased reliance on L UE. Short Term Goals 1. Patient will demonstrate 20 degrees active right elbow extension. 06/02/18= 25% met 2. Patient will demonstrate 10 degrees active right shoulder extension. 06/02/18= 25% met 3. Patient will be able to execute x 10 consecutive bilateral scapular squeezes in standing, without use of compensatory strategies and/or demonstration of loss of balance, in order to improve upon static standing posture. 06/16/18= 50% met GOALS MET: Pt executed 10 bilateral scapular squeezes in sitting. *MET 06/09/18 [facility] Goals 1. Patient and pc tech will be modified independent with execution of right upper extremity home exercise program utilizing provided written and visual instructions. 06/16/18= 25% met 2. Patient and pc tech will verbalize 100% understanding in regards to positioning of right upper extremity at rest to maintain available ROM and/ or minimize further loss of ROM. 06/09/18= 25% met 3. Patient will demonstrate 30 degrees active right shoulder extension. 05/05/18= 25% met 4. Patient will be able to obtain and maintain upright static standing posture at midline x 1 minute, x 2 separate trials, in order to maximize functional success in standing with daily task completion with active use of the left upper extremity with object manipulation. 06/09/18= GOAL UPGRADED GOALS MET: Pt was able to maintain upright static sitting posture x 3 minutes without rest breaks. *MET 06/09/18 - Treatment 4 Descriptor Functional movements - neck/ trunk Modifications Required Yes Complexity No Change 3 Descriptor Environmental positioning R shoulder propped in sh abd on bedside table, elbow ext, forearm neutral x 10 min w/ heat Skin intact pre- and post- treatment Complexity No Change 2 Descriptor Tone Management Resistance provided by therapist Modifications Required Yes Complexity No Change 1 Descriptor HEP Orientation to midline Positioning Modifications Required Yes Complexity Upgraded Exercises 9 Descriptor Orientation to midline WB Isometric work Sitting/standing Side Both Body Position Standing Sets 1 Repetitions 10 Complexity Upgraded 8 Descriptor Neck ext Neck rotation Lateral neck flex/ext Side Both Body Position Standing Sets 2 Repetitions 5-8 sec hold Modifications Required Yes Complexity No Change 7 Descriptor Shoulder - PROM Flexion/extension ER Hor abd Abd Side Right Body Position Sitting Modifications Required Yes Complexity No Change 6 Descriptor Shoulder Pendulum Shrugs Rolls backwards Side Both Body Position Standing Sets 1 Repetitions 10 Modifications Required Yes Complexity No Change 4 Descriptor Elbow extension Side Right Body Position Sitting Sets 3 Repetitions 10 Modifications Required Yes Complexity No Change 3 Descriptor Standing: Trunk rotation Lat trunk ext/flex Sitting: Trunk ext/neck ext Trunk ext L --> R shift back to center - 1 leg TherBall sitting Side Both Sets 1 Repetitions 10 Modifications Required Yes Complexity Upgraded 1 Descriptor Scapular pinches w/ sh ext w/ rowing Side Both Body Position Standing Sets 1 Repetitions 10 Modifications Required Yes Complexity Upgraded - Assessment Patient Response to Treatment Fair Rehab Potential Fair Impairments Identified ADLs Balance Body Mechanics Cognition Contractures Coordination/Dexterity Flexibility Functional Activities Motor Function Pain Weakness Posture Range of Motion Recreational Activities Meaningful Activities Spasticity Stiffness Insight Soft Tissue Mobility Motor Planning Eye-Hand Coordination Assessment of Improvement Improving sitting posture. Improving ability to maintain sitting posture. Impaired standing posture. Decreased orientation to midline. Decreased active use of available ROM relative to UE/ trunk. Poor WB R hip. Rotation to the left w/ whole body. Began to address WB in sitting and will transition to standing as tolerated/able. Poor self-directed tone management/execution of exercises. Decreased ability to actively extend elbow. Decreased functional use of the UE; neglect of UE. Increased reliance on L UE. Home Exercise Program Advanced. Please refer to treatment section above for additional details. Patient and denied questions. Reviewed with Patient/Caregiver Goals Progress Being Made Home Exercise Program Patient/Caregiver Understanding Good - Plan Therapy Recommendations Continue with Current Program Advance per Rehabilitation Protocol
--- NOTE | 2018-07-14 15:15 | OT.OP.REEVAL ---
Visit Care Team Role Provider Type Delfino Epstein MD Attending Provider Physician Family Provider Primary Care Provider Address: [address] [place] [address], [id number] Email: [email or web address] OT Outpatient OT Outpatient Adult Evaluation Start: 04/14/18 14:28 Freq: Status: Active Protocol: Document 04/14/18 14:29 AMS (Rec: 04/14/18 14:29 AMS [email or web address]) General Information Visit Information Visit Number 11/13 (g-codes); visits authorized per year Plan of Care Dates 04/14/18-07/07/18 Insurance Information 42 visits authorized per year; g-codes required Referral Referring Physician Delfino Epstein MD Reason for Referral Evaluate and treat per protocol Precautions PACEMAKER Identification Identification Confirmed Yes Parent/Guardian Parent/Guardian Concerns Stonemason Supervisor: increasing pain/ discomfort w/ A for ADLs Parent/Guardian Goals Caretakers: concerns re: posture Medical Information Medical History Pt is a 62 year-old male presenting to outpatient OT four years s/p CVA w/ resulting right-sided hemiparesis. PMH: CVA; DM II; depression; HTN; [place]; Pacemaker; OA Previous Therapy Previous Therapy/Therapies Yes History of Therapy Previous outpt OT; has UE sling to address right shoulder subluxation. However, internet marketing coordinator denied current compliance w/ wearing of sling . Current Therapy/Therapies Yes: has outpt PT Social Information Social History Stonemason Supervisor reported that the patient and his have recently moved into [facility]'s Mother's home which has likely led to the decline in patient 's sitting and standing posture, as well as increasing complaints of pain/discomfort w/ self care (due to decreased proper positioning of upper extremity and decreased passive ranging of upper extremity). ADLs Overall Ability Comments Impaired; family and internet marketing coordinator assists IADLs Overall Function Comments Impaired; family and internet marketing coordinator assists Cognition Reasoning Comments Impaired Problem Solving Comments Impaired Posture Body Alignment Posture Comments Impaired sitting; standing Overall Ability Comments Impaired Observations Observations Spastic posturing of right UE in sitting and standing. Neglect of R UE. (+) subluxation of R shoulder; (+) R shoulder depression; (+ ) R shoulder IR; (+) R elbow flexion; (+) R forearm pronation; (+) R wrist in flexion w/ fingers in fist; Impaired R scapular mobility; lateral trunk shortening. Unable to execute R shoulder shrugs/circles; trace R scapular retraction Range of Motion Upper Extremity/Lower Extremity Upper Extremity Functional Limits Right Impaired Impairments L UE AROM WFL Neurological Assessment - Adult Spasticity Spasticity R UE spasticity. (-) self- directed tone management observed. (-) tolerance for assist w/ tone management. Goals Objective Measurements Objective Measurements (-) functional abilities of right hand; did not tolerate PROM of digits date of evaluation. Will assess at time of next treatment session . Treatment Treatment Home exercise program. Patient and internet marketing coordinator education re: positioning of R UE at rest. Scapular retraction/squeezes in standing and/or sitting as tolerated by patient. Sitting options to promote upright sitting posture and proper positioning of UE to maintain UE AROM and minimize formation of contractures which would negatively impact family/ caretakers' abilities to assist patient with functional tasks. Short Term Goals Short Term Goals 1. Patient will demonstrate 20 degrees active right elbow extension. 2. Patient will demonstrate 10 degrees active right shoulder extension. 3. Patient will be able to execute x 10 consecutive bilateral scapular squeezes in order to improve upon static sitting posture. [employer] Goals Longterm Goals 1. Patient and internet marketing coordinator will be modified independent with execution of right upper extremity home exercise program utilizing provided written and visual instructions. 2. Patient and internet marketing coordinator will verbalize 100% understanding in regards to positioning of right upper extremity at rest to maintain available ROM and/ or minimize further loss of ROM. 3. Patient will be able to obtain and maintain upright static sitting posture x 3 minutes in chair with bilateral arm rests, without rest breaks and without right upper extremity resting on stomach, requiring minimal verbal cues from therapist. 3. Patient will demonstrate 30 degrees active right shoulder extension. Assessment/Plan Assessment Patient Response Fair Rehabilitation Potential Fair Impairments Identified ADLs Balance Body Mechanics Cognition Coordination/Dexterity Functional Activities Motor Function Pain Weakness Posture Range of Motion Recreational Activities Meaningful Activities Spasticity Stiffness Insight Soft Tissue Mobility Motor Planning Eye-Hand Coordination Treatment Assessment Pt is a 62 year-old male presenting to outpatient OT four years s/p CVA w/ resulting right-sided hemiparesis. PMH: CVA; DM II; depression; HTN; [place]; Pacemaker ; OA. Stonemason Supervisor reported that the patient and his have recently moved into [facility]'s Mother's home which has likely led to the decline in patient 's sitting and standing posture, as well as increasing complaints of pain/discomfort w/ self care (due to decreased proper positioning of upper extremity and decreased passive ranging of upper extremity). Findings: Decreased ROM of right upper extremity; neglect of R UE; subluxation of right shoulder; (-) use of subluxation sling with mobility; decreased insight; impaired body awareness and orientation to midline; decreased functional independence; impaired motor planning; spasticity; weakness ; impaired posture in sitting and standing; and reported increasing pain/discomfort w/ assist by internet marketing coordinator's with completion of functional ADL tasks. Outpt OT recommended to address these areas w/ focus on internet marketing coordinator education to maintain UE AROM and minimize formation of contractures which would negatively impact family/caretakers' abilities to assist patient with functional tasks. Home Exercise Program Patient and internet marketing coordinator education re: positioning of R UE at rest. Scapular retraction/squeezes in standing and/or sitting as tolerated by patient. Sitting options to promote upright sitting posture and proper positioning of UE to maintain UE AROM and minimize formation of contractures which would negatively impact family/ caretakers' abilities to assist patient with functional tasks. Reviewed with Patient Home Exercise Program Patient Understanding Fair Plan Comment 12 weeks Treatment Frequency Once a Week Treatment Emphasis Next Session Assess ROM of hand as tolerated Therapeutic Contents Active Range of Motion Adaptive Equipment Education Client Education Cognitive Skills Development Functional Activities Home Exercise Program Joint Protection Manual Therapy Education Neuromuscular Re-Education Self-Care Stretching/Flexibility Activities Therapeutic Activities Therapeutic Exercises Modalities Sensory Re-education Modalities As Needed As Prescribed Patient Instruction Home Exercise Program Plan of Care Questions/Concerns Comment Consult w/ PT Sensory Assessment Sensory Profile2 Functional Wrist/Hand Scan Hand Side OT Outpatient Range of Motion Start: 04/16/18 13:20 Freq: Status: Active Protocol: Document 07/14/18 14:56 AMS (Rec: 07/14/18 15:14 AMS [email or web address]) ROM - Shoulder Shoulder Left Shoulder ROM WFL Yes Forearm ROM Testing Position Sitting Right Active Shoulder ROM WFL No Forearm ROM Testing Position Sitting Shoulder Flex AROM (degrees) 0-35 Query Text: Shoulder Flex PROM (degrees) 0-90 Query Text: Shoulder Ext AROM (degrees) 0-10 Shoulder Ext PROM (degrees) 0-40 Shoulder Abd AROM (degrees) 0-0 Shoulder Abd PROM (degrees) 0-60 Shoulder ER AROM (degrees) 0-0 Shoulder ER PROM (degrees) 0-60 Comments Passive and active ROM measurements taken within pain -free ROM. Initial evaluation: 0-0 act sh ext ROM - Elbow/Forearm Elbow/Forearm Measured in Degrees Left Elbow/Forearm ROM WFL Yes ROM Testing Position Sitting Right Elbow/Forearm ROM WFL No ROM Testing Position Sitting Elbow Flex AROM (degrees) -45-110 Elbow Flex PROM (degrees) -45-135 Elbow Ext PROM (degrees) 10 Forearm Pron AROM (degrees) -45-135 Forearm Sup AROM (degrees) 0 Forearm Sup PROM (degrees) 0 (did not tolerate) Comments Initial evaluation: 0 degrees active elbow ext OT Outpatient Treatment Note - Adult Start: 04/28/18 15:20 Freq: Status: Active Protocol: Document 07/14/18 14:56 AMS (Rec: 07/14/18 15:14 AMS [email or web address]) OT Outpatient Adult Treatment Note Session Time Visit Start Time 13:41 Visit Stop Time 14:25 Total Visit Minutes 44 Visit Information Visit Number 11/13; visits authorized per year Plan of Care Dates 07/07/18-09/29/18 Insurance Information 42 visits authorized per year; g-codes required Setting Treatment Setting Outpatient Care Visit Type Note Type Re-Evaluation General Information General Information Pt is a 62 year-old male presenting to outpatient OT four years s/p CVA w/ resulting right-sided hemiparesis. PMH: CVA; DM II; depression; HTN; [place]; Pacemaker; OA - Subjective Identification Type Name Identification Reconciled With Medical Record Others Present Family Observations He has been sitting in a more upright chair with arm rests at home per [id number]. Chief Complaint(s) Restricts Loss of Function Marked Degree Patient/Caregiver Compliance with Home Good Exercise Program Comments w/ family support - Objective Objective Measurements Please see below for progress towards meeting established OT goals. Improved sitting posture; however, minimal WB through R hip in static/ dynamic sitting. Improved WB through R hip following isometric exercise at shoulder and pillow exercise. (+) Crossing of L LE over R LE. Discussed positioning options in the home to encourage weight shifting; recommended w / crossing but also w/ both feet flat on floor to carry- over to [id number]. (+) rotation of whole body to the left. Shortening of R trunk due to unequal WB in sitting/ standing. Chin protrusion, forward neck flexion, rounding of shoulders noted w/ static standing. Poor self-directed tone management/execution of exercises. Decreased ability to actively extend elbow; poor grasping of objects. R sided neglect. Increased reliance on L UE. Short Term Goals 1. Patient will demonstrate 20 degrees active right elbow extension. 07/14/18= 50% met; 10 degrees active elbow ext 2. Patient will demonstrate 20 degrees active right shoulder extension. 07/14/18= GOAL UPGRADED 3. Patient will be able to execute x 10 consecutive bilateral scapular squeezes in standing, without use of compensatory strategies and/or demonstration of loss of balance, in order to improve upon static standing posture. 07/14/18= 50% met GOALS MET: Pt executed 10 bilateral scapular squeezes in sitting. *MET 06/09/18 [employer] Goals 1. Patient and internet marketing coordinator will be modified independent with execution of right upper extremity home exercise program utilizing provided written and visual instructions. 07/14/18= 50% met 2. Patient will demonstrate 30 degrees active right shoulder extension. 05/05/18= 25% met 3. Patient will be able to obtain and maintain upright static standing posture at midline x 1 minute, x 2 separate trials, in order to maximize functional success in standing with daily task completion with active use of the left upper extremity with object manipulation. 07/14/18= 25% met GOALS MET: Pt was able to maintain upright static sitting posture x 3 minutes without rest breaks. *MET 06/09/18 Patient and internet marketing coordinator verbalized 100% understanding in regards to positioning of right upper extremity at rest to maintain available ROM and/ or minimize further loss of ROM. *MET 07/14/18 - Treatment 4 Descriptor Functional movements - neck/ trunk 2.2# 2 x 10 trunk/core work Modifications Required Yes Complexity Upgraded 3 Descriptor Environmental positioning R shoulder propped in sh abd on bedside table, elbow ext, forearm neutral x 10 min w/ heat Skin intact pre- and post- treatment Complexity No Change 2 Descriptor Tone Management Resistance provided by therapist Modifications Required Yes Complexity No Change 1 Descriptor HEP TT in standing Modifications Required Yes Complexity Upgraded Exercises 9 Descriptor Orientation to midline WB Isometric work Sitting/standing Side Both Body Position Standing Sets 1 Repetitions 10 Complexity Upgraded 8 Descriptor Neck ext Neck rotation Lateral neck flex/ext Side Both Body Position Standing Sets 2 Repetitions 5-8 sec hold Modifications Required Yes Complexity No Change 7 Descriptor Shoulder - PROM Flexion/extension ER Hor abd Abd Side Right Body Position Sitting Modifications Required Yes Complexity No Change 6 Descriptor Shoulder Shrugs Rolls backwards Side Both Body Position Standing Sets 1 Repetitions 10 Modifications Required Yes Complexity No Change 4 Descriptor Elbow extension Side Right Body Position Sitting Sets 1 Repetitions 10 Modifications Required Yes Complexity No Change 3 Descriptor Standing: Trunk rotation Lat trunk ext/flex Sitting: Trunk ext/neck ext Trunk ext L --> R shift back to center - 1 leg TherBall sitting Side Both Sets 1 Repetitions 10 Modifications Required Yes Complexity No Change 1 Descriptor Scapular pinches w/ sh ext w/ rowing Side Both Body Position Standing Sets 1 Repetitions 10 Modifications Required Yes Complexity No Change - Assessment Patient Response to Treatment Fair Rehab Potential Fair Impairments Identified ADLs Balance Body Mechanics Cognition Contractures Coordination/Dexterity Flexibility Functional Activities Motor Function Pain Weakness Posture Range of Motion Recreational Activities Meaningful Activities Spasticity Stiffness Insight Soft Tissue Mobility Motor Planning Eye-Hand Coordination Assessment of Improvement Pt has made progress over the last certification period relative to shoulder AROM, sitting posture, trunk/core strength. Family and patient also verbalize understanding of importance of positioning of UE out of randa pattern and use of appropriate chair(s) within the home to support upright sitting posture and engagement of trunk/core. Progress is evidenced by pt meeting short term goals. Goals have been upgraded appropriately. Pt continues to require support to maintain upright posture in sitting and standing; decreased carry- over of upright trunk/core from sitting to standing. Decreased attention to left side of space, decreased orientation to midline, decreased activity tolerance and decreased carry-over of AROM/tone management exercises for UE to the home. Continued outpt OT recommended to address trunk/core strength, UE AROM, and orientation to midline to increase functional abilities in standing without use of compensatory patterns (e.g., standing at TT w/ functional reaching of items). Home Exercise Program Advanced. Please refer to treatment section above for additional details. Patient and [id number] denied questions. Reviewed with Patient/Caregiver Goals Progress Being Made Home Exercise Program Patient/Caregiver Understanding Good - Plan Therapy Recommendations Continue with Current Program Advance per Rehabilitation Protocol Comment 12 weeks ongoing Frequency of Treatment Once a Week Therapeutic Contents Active Range of Motion Adaptive Equipment Education Client Education Cognitive Skills Development Functional Activities Home Exercise Program Manual Therapy Education Neuromuscular Re-Education Self-Care Stretching/Flexibility Activities Therapeutic Activities Therapeutic Exercises Modalities Sensory Re-education Modalities As Needed As Prescribed Types of Modalities Contrast Bath E-Stim Ice Massage Mechanical Traction Ultrasound Other Additional Types of Modalities Hot pack Occupational Therapy Assessment OT Outpatient Range of Motion Start: 04/16/18 13:20 Freq: Status: Active Protocol: Document 07/14/18 14:56 AMS (Rec: 07/14/18 15:14 AMS [email or web address]) ROM - Shoulder Shoulder Left Shoulder ROM WFL Yes Forearm ROM Testing Position Sitting Right Active Shoulder ROM WFL No Forearm ROM Testing Position Sitting Shoulder Flex AROM (degrees) 0-35 Query Text: Shoulder Flex PROM (degrees) 0-90 Query Text: Shoulder Ext AROM (degrees) 0-10 Shoulder Ext PROM (degrees) 0-40 Shoulder Abd AROM (degrees) 0-0 Shoulder Abd PROM (degrees) 0-60 Shoulder ER AROM (degrees) 0-0 Shoulder ER PROM (degrees) 0-60 Comments Passive and active ROM measurements taken within pain -free ROM. Initial evaluation: 0-0 act sh ext ROM - Elbow/Forearm Elbow/Forearm Measured in Degrees Left Elbow/Forearm ROM WFL Yes ROM Testing Position Sitting Right Elbow/Forearm ROM WFL No ROM Testing Position Sitting Elbow Flex AROM (degrees) -45-110 Elbow Flex PROM (degrees) -45-135 Elbow Ext PROM (degrees) 10 Forearm Pron AROM (degrees) -45-135 Forearm Sup AROM (degrees) 0 Forearm Sup PROM (degrees) 0 (did not tolerate) Comments Initial evaluation: 0 degrees active elbow ext
--- NOTE | 2018-07-22 11:48 | OT.OP.TRT ---
Visit Care Team Role Provider Type Delfino Epstein MD Attending Provider Physician Family Provider Primary Care Provider Specialty: Family Practice Address: [address] [place] [address], [id number] Email: [email or web address] Occupational Therapy Treatment Note OT Outpatient Treatment Note - Adult Start: 04/28/18 15:20 Freq: Status: Active Protocol: Document 07/21/18 03:30 AMS (Rec: 07/22/18 11:48 AMS [email or web address]) OT Outpatient Adult Treatment Note Session Time Visit Start Time 01:30 Visit Stop Time 02:15 Total Visit Minutes 45 Visit Information Visit Number 12/14; visits authorized per year Plan of Care Dates 07/07/18-09/29/18 Insurance Information 42 visits authorized per year; g-codes required Setting Treatment Setting Outpatient Care Visit Type Note Type Treatment Note General Information General Information Pt is a 62 year-old male presenting to outpatient OT four years s/p CVA w/ resulting right-sided hemiparesis. PMH: CVA; DM II; depression; HTN; [place]; Pacemaker; OA - Subjective Identification Type Name Identification Reconciled With Medical Record Others Present Family Observations He might be stiff. He was in the car a lot this weekend. They attended a 6 hours away per daughter-in- law. Chief Complaint(s) Restricts Loss of Function Marked Degree Patient/Caregiver Compliance with Home Good Exercise Program Comments w/ family support - Objective Objective Measurements Please see below for progress towards meeting established OT goals. Improved sitting posture; however, minimal WB through R hip in static/ dynamic sitting. Reviewed positioning options in the home to encourage weight shifting; (+) rotation of whole body to the left. Shortening of R trunk due to unequal WB in sitting/standing . Chin protrusion, forward neck flexion, rounding of shoulders noted w/ static standing. Poor self-directed tone management/execution of exercises. Decreased ability to actively extend elbow; poor grasping of objects. R sided neglect. Increased reliance on L UE. Short Term Goals 1. Patient will demonstrate 20 degrees active right elbow extension. 07/14/18= 50% met; 10 degrees active elbow ext 2. Patient will demonstrate 20 degrees active right shoulder extension. 07/14/18= GOAL UPGRADED 3. Patient will be able to execute x 10 consecutive bilateral scapular squeezes in standing, without use of compensatory strategies and/or demonstration of loss of balance, in order to improve upon static standing posture. 07/21/18= 50% met 4. Patient will be able to row on rowing machine, with sitting modification (chair without armrests), with active incorporation of the right UE x 2 minutes without rest breaks, and/or loss of grasp of right hand on bar. 07/22/18= 50% met GOALS MET: Pt executed 10 bilateral scapular squeezes in sitting. *MET 06/09/18 Jail Goals 1. Patient and steel roller will be modified independent with execution of right upper extremity home exercise program utilizing provided written and visual instructions. 07/21/18= 50% met 2. Patient will demonstrate 30 degrees active right shoulder extension. 07/21/18= 25% met 3. Patient will be able to obtain and maintain upright static standing posture at midline x 1 minute, x 2 separate trials, in order to maximize functional success in standing with daily task completion with active use of the left upper extremity with object manipulation. 07/22/18= 25% met GOALS MET: Pt was able to maintain upright static sitting posture x 3 minutes without rest breaks. *MET 06/09/18 Patient and steel roller verbalized 100% understanding in regards to positioning of right upper extremity at rest to maintain available ROM and/ or minimize further loss of ROM. *MET 07/14/18 - Treatment 4 Descriptor Functional movements - neck/ trunk Modifications Required Yes Complexity Upgraded 3 Descriptor Environmental positioning R shoulder propped in sh abd on bedside table, elbow ext, forearm neutral x 10 min w/ heat Skin intact pre- and post- treatment Complexity No Change 2 Descriptor Tone Management Resistance provided by therapist Modifications Required Yes Complexity No Change 1 Descriptor HEP Simulation of rowing. Patient and [id number] denied questions. Modifications Required Yes Complexity Upgraded Exercises 10 Descriptor Rowing machine Side Both Body Position Sitting Resistance level 1 Time 4 min w/ RB Modifications Required Yes Complexity Upgraded 9 Descriptor Orientation to midline WB Isometric work Sitting/standing Side Both Body Position Standing Sets 1 Repetitions 10 Complexity Upgraded 8 Descriptor Neck ext Neck rotation Lateral neck flex/ext Side Both Body Position Standing Sets 2 Repetitions 5-8 sec hold Modifications Required Yes Complexity No Change 7 Descriptor Shoulder - PROM Flexion/extension ER Hor abd Abd Side Right Body Position Sitting Modifications Required Yes Complexity No Change 6 Descriptor Shoulder Shrugs Rolls backwards Side Both Body Position Standing Sets 1 Repetitions 10 Modifications Required Yes Complexity No Change 4 Descriptor Elbow extension Side Right Body Position Standing Sets 1 Repetitions 10 Modifications Required Yes Complexity Upgraded 3 Descriptor Standing: Trunk rotation Lat trunk ext/flex Sitting: Trunk ext/neck ext Trunk ext L --> R shift back to center - 1 leg TherBall sitting Side Both Sets 1 Repetitions 10 Modifications Required Yes Complexity No Change 1 Descriptor Scapular pinches w/ sh ext w/ rowing Side Both Body Position Standing Sets 1 Repetitions 10 Modifications Required Yes Complexity No Change - Assessment Patient Response to Treatment Fair Rehab Potential Fair Impairments Identified ADLs Balance Body Mechanics Cognition Contractures Coordination/Dexterity Flexibility Functional Activities Motor Function Pain Weakness Posture Range of Motion Recreational Activities Meaningful Activities Spasticity Stiffness Insight Soft Tissue Mobility Motor Planning Eye-Hand Coordination Assessment of Improvement Pt continues to require support to maintain upright posture in sitting and standing; decreased carry-over of upright trunk/core from sitting to standing. Decreased attention to R side of space, decreased orientation to midline, decreased activity tolerance and decreased carry- over of AROM/tone management exercises of UE into the home. Improving tolerance for activities incorporating maintenance of grasp; this is evidenced by active participation in new rowing activity. Home Exercise Program Advanced. Please refer to treatment section above for additional details. Reviewed with Patient/Caregiver Goals Progress Being Made Home Exercise Program Patient/Caregiver Understanding Good - Plan Therapy Recommendations Continue with Current Program Advance per Rehabilitation Protocol
--- NOTE | 2018-08-04 10:40 | OT.OP.TRT ---
Visit Care Team Role Provider Type Delfino Epstein MD Attending Provider Physician Family Provider Primary Care Provider Specialty: Family Practice Address: [address] [place] [address], [id number] Email: [email or web address] Occupational Therapy Treatment Note OT Outpatient Treatment Note - Adult Start: 04/28/18 15:20 Freq: Status: Active Protocol: Document 07/28/18 03:30 AMS (Rec: 08/04/18 10:40 AMS [id number]) OT Outpatient Adult Treatment Note Session Time Visit Start Time 01:30 Visit Stop Time 02:15 Total Visit Minutes 45 Visit Information Visit Number 01/11; visits authorized per year Plan of Care Dates 07/07/18-09/29/18 Insurance Information 42 visits authorized per year; g-codes required Setting Treatment Setting Outpatient Care Visit Type Note Type Treatment Note General Information General Information Pt is a 62 year-old male presenting to outpatient OT four years s/p CVA w/ resulting right-sided hemiparesis. PMH: CVA; DM II; depression; HTN; [place]; Pacemaker; OA - Subjective Identification Type Name Identification Reconciled With Medical Record Others Present Family Observations I am still working on getting back into a routine with him per [id number]. I used to have him use the wii. Chief Complaint(s) Restricts Loss of Function Marked Degree Patient/Caregiver Compliance with Home Good Exercise Program Comments w/ family support - Objective Objective Measurements Please see below for progress towards meeting established OT goals. Reviewed positioning options in the home to encourage weight shifting; (+) rotation of whole body to the left. Shortening of R trunk due to unequal WB in sitting/ standing. Chin protrusion, forward neck flexion, rounding of shoulders noted w/ static standing. Poor self-directed tone management/execution of exercises. Decreased ability to actively extend elbow; poor grasping of objects. Able to execute gross grasp w/ bar, bat, cane, row bar. R sided neglect. Increased reliance on L UE. Short Term Goals 1. Patient will demonstrate 20 degrees active right elbow extension. 07/14/18= 50% met; 10 degrees active elbow ext 2. Patient will demonstrate 20 degrees active right shoulder extension. 07/14/18= GOAL UPGRADED 3. Patient will be able to execute x 10 consecutive bilateral scapular squeezes in standing, without use of compensatory strategies and/or demonstration of loss of balance, in order to improve upon static standing posture. 07/28/18= 50% met 4. Patient will be able to row on rowing machine, with sitting modification (chair without armrests), with active incorporation of the right UE x 2 minutes without rest breaks, and/or loss of grasp of right hand on bar. 07/28/18= 50% met GOALS MET: Pt executed 10 bilateral scapular squeezes in sitting. *MET 06/09/18 Snf Goals 1. Patient and screenplay writer will be modified independent with execution of right upper extremity home exercise program utilizing provided written and visual instructions. 07/21/18= 50% met 2. Patient will demonstrate 30 degrees active right shoulder extension. 07/21/18= 25% met 3. Patient will be able to obtain and maintain upright static standing posture at midline x 1 minute, x 2 separate trials, in order to maximize functional success in standing with daily task completion with active use of the left upper extremity with object manipulation. 07/28/18= 25% met GOALS MET: Pt was able to maintain upright static sitting posture x 3 minutes without rest breaks. *MET 06/09/18 Patient and screenplay writer verbalized 100% understanding in regards to positioning of right upper extremity at rest to maintain available ROM and/ or minimize further loss of ROM. *MET 07/14/18 - Treatment 5 Descriptor Bimanual functional activities Complexity Upgraded 4 Descriptor Functional movements - neck/ trunk Modifications Required Yes Complexity Upgraded 3 Descriptor R sh in sh abd bedside table, elbow ext, forearm neutral x 10 min w/ heat Skin intact pre- and post- treat Complexity No Change 2 Descriptor Tone Management Resistance provided by therapist Modifications Required Yes Complexity No Change 1 Descriptor HEP Bimanual tasks w/ active incorporation of the R UE. Modifications as needed. Options demonstrated and practiced in tx session, including [id number] golf, batting. Both pt and daughter -in-law denied questions. Modifications Required Yes Complexity Upgraded Exercises 10 Descriptor Rowing machine Side Both Body Position Sitting Resistance level 1 Time 4 min w/ RB Modifications Required Yes Complexity No Change 9 Descriptor Orientation to midline WB Isometric work Sitting/standing Side Both Body Position Standing Sets 1 Repetitions 10 Complexity No Change 8 Descriptor Neck ext Neck rotation Lateral neck flex/ext Side Both Body Position Standing Sets 2 Repetitions 5-8 sec hold Modifications Required Yes Complexity No Change 7 Descriptor Shoulder - PROM Flexion/extension ER Hor abd Abd Side Right Body Position Sitting Modifications Required Yes Complexity No Change 6 Descriptor Shoulder Shrugs Rolls backwards Side Both Body Position Standing Sets 1 Repetitions 10 Modifications Required Yes Complexity No Change 4 Descriptor Elbow extension Side Right Body Position Standing Sets 1 Repetitions 10 Modifications Required Yes Complexity Upgraded 3 Descriptor Standing: Trunk rotation Lat trunk ext/flex Sitting: Trunk ext/neck ext Trunk ext L --> R shift back to center - 1 leg TherBall sitting Side Both Sets 1 Repetitions 10 Modifications Required Yes Complexity No Change 1 Descriptor Scapular pinches w/ sh ext w/ rowing Side Both Body Position Standing Sets 1 Repetitions 10 Modifications Required Yes Complexity No Change - Assessment Patient Response to Treatment Fair Rehab Potential Fair Impairments Identified ADLs Balance Body Mechanics Cognition Contractures Coordination/Dexterity Flexibility Functional Activities Motor Function Pain Weakness Posture Range of Motion Recreational Activities Meaningful Activities Spasticity Stiffness Insight Soft Tissue Mobility Motor Planning Eye-Hand Coordination Assessment of Improvement Pt continues to require support to maintain upright posture in sitting and standing; decreased carry-over of upright trunk/core from sitting to standing. Decreased attention to R side of space, decreased orientation to midline, decreased activity tolerance and decreased carry- over of AROM/tone management exercises of UE into the home. Improving tolerance for activities incorporating maintenance of grasp; (+) response and participation in bimanual tasks in standing w/ environmental modifications to support success (putting large spherical objects, batting larger spherical objects). Home Exercise Program Advanced. Please refer to treatment section above for additional details. Reviewed with Patient/Caregiver Goals Progress Being Made Home Exercise Program Patient/Caregiver Understanding Good - Plan Therapy Recommendations Continue with Current Program Advance per Rehabilitation Protocol
--- NOTE | 2018-08-13 14:56 | OT.OP.TRT ---
Visit Care Team Role Provider Type Delfino Epstein MD Attending Provider Physician Family Provider Primary Care Provider Specialty: Family Practice Address: [address] [place] [address], [address] Email: [email or web address] Occupational Therapy Treatment Note OT Outpatient Treatment Note - Adult Start: 04/28/18 15:20 Freq: Status: Active Protocol: Document 08/11/18 15:30 AMS (Rec: 08/13/18 14:56 AMS [id number]) OT Outpatient Adult Treatment Note Session Time Visit Start Time 01:30 Visit Stop Time 02:15 Total Visit Minutes 45 Visit Information Visit Number 02/11; visits authorized per year Plan of Care Dates 07/07/18-09/29/18 Insurance Information 42 visits authorized per year; g-codes required Setting Treatment Setting Outpatient Care Visit Type Note Type Treatment Note General Information General Information Pt is a 62 year-old male presenting to outpatient OT four years s/p CVA w/ resulting right-sided hemiparesis. PMH: CVA; DM II; depression; HTN; [place]; Pacemaker; OA - Subjective Identification Type Name Identification Reconciled With Medical Record Others Present Family Observations I have only been able to be over there for about a hour per [id number]. Chief Complaint(s) Restricts Loss of Function Marked Degree Patient/Caregiver Compliance with Home Good Exercise Program Comments w/ family support - Objective Objective Measurements Please see below for progress towards meeting established OT goals. Shortening of R trunk due to unequal WB in sitting/ standing. Chin protrusion, forward neck flexion, rounding of shoulders noted w/ static standing. Poor self-directed tone management/execution of exercises. Decreased ability to actively extend elbow; poor grasping of objects. Able to execute gross grasp w/ bar, bat, cane, row bar. R sided neglect. Increased reliance on L UE. Short Term Goals 1. Patient will demonstrate 20 degrees active right elbow extension. 07/14/18= 50% met; 10 degrees active elbow ext 2. Patient will demonstrate 20 degrees active right shoulder extension. 07/14/18= GOAL UPGRADED 3. Patient will be able to execute x 10 consecutive bilateral scapular squeezes in standing, without use of compensatory strategies and/or demonstration of loss of balance, in order to improve upon static standing posture. 08/11/18= 50% met 4. Patient will be able to row on rowing machine, with sitting modification (chair without armrests), with active incorporation of the right UE x 2 minutes without rest breaks, and/or loss of grasp of right hand on bar. 07/28/18= 50% met GOALS MET: Pt executed 10 bilateral scapular squeezes in sitting. *MET 06/09/18 Halfway Goals 1. Patient and surveillance sensor officer will be modified independent with execution of right upper extremity home exercise program utilizing provided written and visual instructions. 07/21/18= 50% met 2. Patient will demonstrate 30 degrees active right shoulder extension. 07/21/18= 25% met 3. Patient will be able to obtain and maintain upright static standing posture at midline x 1 minute, x 2 separate trials, in order to maximize functional success in standing with daily task completion with active use of the left upper extremity with object manipulation. 08/11/18= 25% met GOALS MET: Pt was able to maintain upright static sitting posture x 3 minutes without rest breaks. *MET 06/09/18 Patient and surveillance sensor officer verbalized 100% understanding in regards to positioning of right upper extremity at rest to maintain available ROM and/ or minimize further loss of ROM. *MET 07/14/18 - Treatment 5 Descriptor Bimanual functional activities Complexity Upgraded 4 Descriptor Functional movements - neck/ trunk Modifications Required Yes Complexity Upgraded 3 Descriptor R sh in sh abd bedside table, elbow ext, forearm neutral x 10 min w/ heat Skin intact pre- and post- treat Complexity No Change 2 Descriptor Tone Management Resistance provided by therapist Modifications Required Yes Complexity No Change 1 Descriptor HEP No changes. Reviewed importance of daily stretching and positioning of UE. Modifications Required Yes Complexity No Change Exercises 10 Descriptor Rowing machine Side Both Body Position Sitting Resistance level 1 Time 4 min w/ RB Modifications Required Yes Complexity No Change 9 Descriptor Orientation to midline WB Isometric work Sitting/standing Side Both Body Position Standing Sets 1 Repetitions 10 Complexity No Change 8 Descriptor Neck ext Neck rotation Lateral neck flex/ext Side Both Body Position Standing Sets 2 Repetitions 5-8 sec hold Modifications Required Yes Complexity No Change 7 Descriptor Shoulder - PROM Flexion/extension ER Hor abd Abd Side Right Body Position Sitting Modifications Required Yes Complexity No Change 6 Descriptor Shoulder Shrugs Rolls backwards Side Both Body Position Standing Sets 1 Repetitions 10 Modifications Required Yes Complexity No Change 3 Descriptor Standing: Trunk rotation Lat trunk ext/flex Sitting: Trunk ext/neck ext Trunk ext L --> R shift back to center - 1 leg TherBall sitting Side Both Sets 1 Repetitions 10 Modifications Required Yes Complexity No Change 1 Descriptor Scapular pinches w/ sh ext w/ rowing Side Both Body Position Standing Sets 1 Repetitions 10 Modifications Required Yes Complexity No Change - Assessment Patient Response to Treatment Fair Rehab Potential Fair Impairments Identified ADLs Balance Body Mechanics Cognition Contractures Coordination/Dexterity Flexibility Functional Activities Motor Function Pain Weakness Posture Range of Motion Recreational Activities Meaningful Activities Spasticity Stiffness Insight Soft Tissue Mobility Motor Planning Eye-Hand Coordination Assessment of Improvement Pt continues to require support to maintain upright posture in sitting and standing; decreased carry-over of upright trunk/core from sitting to standing. Decreased attention to R side of space, decreased orientation to midline, decreased activity tolerance and decreased carry- over of AROM/tone management exercises of UE into the home. Improving tolerance for activities incorporating maintenance of grasp. Home Exercise Program No changes. Recommended focusing on current HEP. Pt and [id number] verbalized understanding. Reviewed with Patient/Caregiver Goals Progress Being Made Home Exercise Program Patient/Caregiver Understanding Good - Plan Therapy Recommendations Continue with Current Program Advance per Rehabilitation Protocol
--- NOTE | 2018-08-19 12:44 | OT.OP.TRT ---
Visit Care Team Role Provider Type Delfino Epstein MD Attending Provider Physician Family Provider Primary Care Provider Specialty: Family Practice Address: [address] [place] [address], [id number] Email: [email or web address] Occupational Therapy Treatment Note OT Outpatient Treatment Note - Adult Start: 04/28/18 15:20 Freq: Status: Active Protocol: Document 08/18/18 14:30 AMS (Rec: 08/19/18 12:44 AMS [email or web address]) OT Outpatient Adult Treatment Note Session Time Visit Start Time 01:30 Visit Stop Time 02:15 Total Visit Minutes 45 Visit Information Visit Number 04/13; visits authorized per year Plan of Care Dates 07/07/18-09/29/18 Insurance Information 42 visits authorized per year; g-codes required Setting Treatment Setting Outpatient Care Visit Type Note Type Treatment Note General Information General Information Pt is a 62 year-old male presenting to outpatient OT four years s/p CVA w/ resulting right-sided hemiparesis. PMH: CVA; DM II; depression; HTN; [place]; Pacemaker; OA - Subjective Identification Type Name Identification Reconciled With Medical Record Others Present Family Observations I just got back. I was out of town per [id number]. Chief Complaint(s) Restricts Loss of Function Marked Degree Patient/Caregiver Compliance with Home Fair Exercise Program Comments w/ family support - Objective Objective Measurements Please see below for progress towards meeting established OT goals. Shortening of R trunk due to unequal WB in sitting/ standing. Chin protrusion, forward neck flexion, rounding of shoulders noted w/ static standing. Poor self-directed tone management/execution of exercises. Decreased ability to actively extend elbow; poor grasping of objects. Able to execute gross grasp w/ bar, bat, cane, row bar. R sided neglect. Increased reliance on L UE. Short Term Goals 1. Patient will demonstrate 20 degrees active right elbow extension. 07/14/18= 50% met; 10 degrees active elbow ext 2. Patient will demonstrate 20 degrees active right shoulder extension. 07/14/18= GOAL UPGRADED 3. Patient will be able to execute x 10 consecutive bilateral scapular squeezes in standing, without use of compensatory strategies and/or demonstration of loss of balance, in order to improve upon static standing posture. 08/11/18= 75% met GOALS MET: Pt executed 10 bilateral scapular squeezes in sitting. *MET 06/09/18 Pt rowed x 2 min, with sitting modification and active incorporation of R UE, without RB/or loss of professional healthcare representative. *MET 08/08 Fdc Goals 1. Patient and kineseologist will be modified independent with execution of right upper extremity home exercise program utilizing provided written and visual instructions. 07/21/18= 50% met 2. Patient will demonstrate 30 degrees active right shoulder extension. 07/21/18= 25% met 3. Patient will be able to obtain and maintain upright static standing posture at midline x 1 minute, x 2 separate trials, in order to maximize functional success in standing with daily task completion with active use of the left upper extremity with object manipulation. 08/11/18= 25% met GOALS MET: Pt was able to maintain upright static sitting posture x 3 minutes without rest breaks. *MET 06/09/18 Patient and kineseologist verbalized 100% understanding in regards to positioning of right upper extremity at rest to maintain available ROM and/ or minimize further loss of ROM. *MET 07/14/18 - Treatment 5 Descriptor Bimanual functional activities Complexity No Change 4 Descriptor Functional movements - neck/ trunk Modifications Required Yes Complexity No Change 3 Descriptor R sh in sh abd bedside table, elbow ext, forearm neutral x 10 min w/ heat Skin intact pre- and post- treat Complexity No Change 2 Descriptor Tone Management Resistance provided by therapist Modifications Required Yes Complexity No Change 1 Descriptor HEP No changes. Reviewed importance of daily stretching and positioning of UE. Modifications Required Yes Complexity No Change Exercises 9 Descriptor Orientation to midline WB Isometric work Sitting/standing Side Both Body Position Standing Sets 1 Repetitions 10 Complexity No Change 8 Descriptor Neck ext Neck rotation Lateral neck flex/ext Side Both Body Position Standing Sets 2 Repetitions 5-8 sec hold Modifications Required Yes Complexity No Change 7 Descriptor Shoulder - PROM Flexion/extension ER Hor abd Abd Side Right Body Position Sitting Modifications Required Yes Complexity No Change 6 Descriptor Shoulder Shrugs Rolls backwards Side Both Body Position Standing Sets 1 Repetitions 10 Modifications Required Yes Complexity No Change 5 Descriptor Rowing Machine Side Both Body Position Sitting Resistance Level 1 Time 2 min 3 Descriptor Standing: Trunk rotation Lat trunk ext/flex Sitting: Trunk ext/neck ext Trunk ext L --> R shift back to center - 1 leg TherBall sitting Side Both Sets 1 Repetitions 10 Modifications Required Yes Complexity No Change 1 Descriptor Scapular pinches w/ sh ext w/ rowing Side Both Body Position Standing Sets 1 Repetitions 10 Modifications Required Yes Complexity No Change - Assessment Patient Response to Treatment Fair Rehab Potential Fair Impairments Identified ADLs Balance Body Mechanics Cognition Contractures Coordination/Dexterity Flexibility Functional Activities Motor Function Pain Weakness Posture Range of Motion Recreational Activities Meaningful Activities Spasticity Stiffness Insight Soft Tissue Mobility Motor Planning Eye-Hand Coordination Assessment of Improvement Pt continues to require support to maintain upright posture in sitting and standing; decreased carry-over of upright trunk/core from sitting to standing. Decreased attention to R side of space, decreased orientation to midline, decreased activity tolerance and decreased carry- over of AROM/tone management exercises of UE into the home. Increased reliance on support from family for execution of exercises. Improving tolerance for activities incorporating maintenance of grasp. This is evidenced by meeting short term goal in this area. Home Exercise Program Refer to treatment section of note for specific details. Reviewed with Patient/Caregiver Goals Progress Being Made Home Exercise Program Patient/Caregiver Understanding Good - Plan Therapy Recommendations Continue with Current Program Advance per Rehabilitation Protocol
--- NOTE | 2018-09-05 12:23 | OT.OP.TRT ---
Visit Care Team Role Provider Type Delfino Epstein MD Attending Provider Physician Family Provider Primary Care Provider Specialty: Family Practice Address: [address] [place] [address], [id number] Email: [email or web address] Occupational Therapy Treatment Note OT Outpatient Treatment Note - Adult Start: 04/28/18 15:20 Freq: Status: Active Protocol: Document 09/01/18 15:30 AMS (Rec: 09/05/18 12:23 AMS [email or web address]) OT Outpatient Adult Treatment Note Session Time Visit Start Time 01:30 Visit Stop Time 02:15 Total Visit Minutes 45 Visit Information Visit Number 05/13; visits authorized per year Plan of Care Dates 07/07/18-09/29/18 Insurance Information 42 visits authorized per year; g-codes required Setting Treatment Setting Outpatient Care Visit Type Note Type Treatment Note General Information General Information Pt is a 62 year-old male presenting to outpatient OT four years s/p CVA w/ resulting right-sided hemiparesis. PMH: CVA; DM II; depression; HTN; [place]; Pacemaker; OA - Subjective Identification Type Name Identification Reconciled With Medical Record Observations Sukh demonstrated w/ L hand that he had been practicing 'a little' at home (fingers close together). Chief Complaint(s) Restricts Loss of Function Marked Degree Patient/Caregiver Compliance with Home Fair Exercise Program Comments w/ family support - Objective Objective Measurements Please see below for progress towards meeting established OT goals. Shortening of R trunk due to unequal WB in sitting/ standing. Chin protrusion, forward neck flexion, rounding of shoulders noted w/ static standing. Poor self-directed tone management/execution of exercises. Decreased ability to actively extend elbow; poor grasping of objects. Able to execute gross grasp w/ bar, bat, cane, row bar. R sided neglect. Increased reliance on L UE. Short Term Goals 1. Patient will demonstrate 20 degrees active right elbow extension. 07/14/18= 50% met; 10 degrees active elbow ext 2. Patient will demonstrate 20 degrees active right shoulder extension. 07/14/18= GOAL UPGRADED 3. Patient will be able to execute x 10 consecutive bilateral scapular squeezes in standing, without use of compensatory strategies and/or demonstration of loss of balance, in order to improve upon static standing posture. 08/11/18= 75% met GOALS MET: Pt executed 10 bilateral scapular squeezes in sitting. *MET 06/09/18 Pt rowed x 2 min, with sitting modification and active incorporation of R UE, without RB/or loss of regional education coordinator. *MET 08/08 [employer] Finishing Hand Goals 1. Patient and director data architecture will be modified independent with execution of right upper extremity home exercise program utilizing provided written and visual instructions. 07/21/18= 50% met 2. Patient will demonstrate 30 degrees active right shoulder extension. 07/21/18= 25% met 3. Patient will be able to obtain and maintain upright static standing posture at midline x 1 minute, x 2 separate trials, in order to maximize functional success in standing with daily task completion with active use of the left upper extremity with object manipulation. 08/11/18= 25% met GOALS MET: Pt was able to maintain upright static sitting posture x 3 minutes without rest breaks. *MET 06/09/18 Patient and director data architecture verbalized 100% understanding in regards to positioning of right upper extremity at rest to maintain available ROM and/ or minimize further loss of ROM. *MET 07/14/18 - Treatment 5 Descriptor Bimanual activities Complexity No Change 4 Descriptor Functional movements - neck/ trunk Modifications Required Yes Complexity No Change 3 Descriptor R sh in sh abd bedside table, elbow ext, forearm neutral x 10 min w/ heat Skin intact pre- and post- treat Complexity No Change 2 Descriptor Tone Management Modifications Required Yes Complexity No Change 1 Descriptor HEP No changes. Reviewed importance of daily stretching and positioning of UE. Modifications Required Yes Complexity No Change Exercises 9 Descriptor Orientation to midline WB Isometric work Sitting/standing Side Both Body Position Standing Sets 1 Repetitions 10 Complexity No Change 8 Descriptor Neck ext Neck rotation Lateral neck flex/ext Side Both Body Position Standing Sets 2 Repetitions 5-8 sec hold Modifications Required Yes Complexity No Change 7 Descriptor Shoulder - PROM Flexion/extension ER Hor abd Abd Side Right Body Position Sitting Modifications Required Yes Complexity No Change 6 Descriptor Shoulder Shrugs Rolls backwards Side Both Body Position Standing Sets 1 Repetitions 10 Modifications Required Yes Complexity No Change 5 Descriptor Rowing Machine Side Both Body Position Sitting Resistance Level 1 Time 2 min 3 Descriptor Standing: Trunk rotation Lat trunk ext/flex Sitting: Trunk ext/neck ext Trunk ext L --> R shift back to center - 1 leg TherBall sitting Side Both Sets 1 Repetitions 10 Modifications Required Yes Complexity No Change 1 Descriptor Scapular pinches w/ sh ext w/ rowing Side Both Body Position Standing Sets 1 Repetitions 10 Modifications Required Yes Complexity No Change - Assessment Patient Response to Treatment Fair Rehab Potential Fair Impairments Identified ADLs Balance Body Mechanics Cognition Contractures Coordination/Dexterity Flexibility Functional Activities Motor Function Pain Weakness Posture Range of Motion Recreational Activities Meaningful Activities Spasticity Stiffness Insight Soft Tissue Mobility Motor Planning Eye-Hand Coordination Assessment of Improvement Decreased attention to R side of space, decreased orientation to midline, decreased activity tolerance and decreased carry-over of AROM/tone management exercises of UE into the home. Increased reliance on support from family for execution of exercises. Improving tolerance for activities incorporating maintenance of grasp in standing w/ weight shifting and w/ bimanual activities. Recommend consulting w/ in re: continuation of outpt treatment given decreased carry-over of recommendations by pt without maximum environmental and familial supports, as well as discussion re: focus of treatment during upcoming treatment sessions. Home Exercise Program Refer to treatment section of note for specific details. Reviewed with Patient/Caregiver Goals Progress Being Made Home Exercise Program Patient/Caregiver Understanding Good - Plan Therapy Recommendations Other Additional Therapy Recommendations Consult w/ pt's ; limited therapist availability
--- NOTE | 2018-10-09 14:52 | OT.OP.DC ---
Visit Care Team Role Provider Type Delfino Epstein MD Attending Provider Physician Family Provider Primary Care Provider Address: [address] [place] [address], [id number] Email: [email or web address] Outpatient OT Outpatient Adult Evaluation Start: 04/14/18 14:28 Freq: Status: Active Protocol: Document 04/14/18 14:29 AMS (Rec: 04/14/18 14:29 AMS [email or web address]) General Information Visit Information Visit Number 11/13 (g-codes); visits authorized per year Plan of Care Dates 04/14/18-07/07/18 Insurance Information 42 visits authorized per year; g-codes required Referral Referring Physician Delfino Epstein MD Reason for Referral Evaluate and treat per protocol Precautions PACEMAKER Identification Identification Confirmed Yes Parent/Guardian Parent/Guardian Concerns Sponge Diver: increasing pain/ discomfort w/ A for ADLs Parent/Guardian Goals Caretakers: concerns re: posture Medical Information Medical History Pt is a 62 year-old male presenting to outpatient OT four years s/p CVA w/ resulting right-sided hemiparesis. PMH: CVA; DM II; depression; HTN; ME; Pacemaker; OA Previous Therapy Previous Therapy/Therapies Yes History of Therapy Previous outpt OT; has UE sling to address right shoulder subluxation. However, rn embedded denied current compliance w/ wearing of sling . Current Therapy/Therapies Yes: has outpt PT Social Information Social History Sponge Diver reported that the patient and his have recently moved into [facility]'s Mother's home which has likely led to the decline in patient 's sitting and standing posture, as well as increasing complaints of pain/discomfort w/ self care (due to decreased proper positioning of upper extremity and decreased passive ranging of upper extremity). ADLs Overall Ability Comments Impaired; family and rn embedded assists IADLs Overall Function Comments Impaired; family and rn embedded assists Cognition Reasoning Comments Impaired Problem Solving Comments Impaired Posture Body Alignment Posture Comments Impaired sitting; standing Overall Ability Comments Impaired Observations Observations Spastic posturing of right UE in sitting and standing. Neglect of R UE. (+) subluxation of R shoulder; (+) R shoulder depression; (+ ) R shoulder IR; (+) R elbow flexion; (+) R forearm pronation; (+) R wrist in flexion w/ fingers in fist; Impaired R scapular mobility; lateral trunk shortening. Unable to execute R shoulder shrugs/circles; trace R scapular retraction Range of Motion Upper Extremity/Lower Extremity Upper Extremity Functional Limits Right Impaired Impairments L UE AROM WFL Neurological Assessment - Adult Spasticity Spasticity R UE spasticity. (-) self- directed tone management observed. (-) tolerance for assist w/ tone management. Goals Objective Measurements Objective Measurements (-) functional abilities of right hand; did not tolerate PROM of digits date of evaluation. Will assess at time of next treatment session . Treatment Treatment Home exercise program. Patient and rn embedded education re: positioning of R UE at rest. Scapular retraction/squeezes in standing and/or sitting as tolerated by patient. Sitting options to promote upright sitting posture and proper positioning of UE to maintain UE AROM and minimize formation of contractures which would negatively impact family/ caretakers' abilities to assist patient with functional tasks. Short Term Goals Short Term Goals 1. Patient will demonstrate 20 degrees active right elbow extension. 2. Patient will demonstrate 10 degrees active right shoulder extension. 3. Patient will be able to execute x 10 consecutive bilateral scapular squeezes in order to improve upon static sitting posture. Corn Shredder Goals Fdc Goals 1. Patient and rn embedded will be modified independent with execution of right upper extremity home exercise program utilizing provided written and visual instructions. 2. Patient and rn embedded will verbalize 100% understanding in regards to positioning of right upper extremity at rest to maintain available ROM and/ or minimize further loss of ROM. 3. Patient will be able to obtain and maintain upright static sitting posture x 3 minutes in chair with bilateral arm rests, without rest breaks and without right upper extremity resting on stomach, requiring minimal verbal cues from therapist. 3. Patient will demonstrate 30 degrees active right shoulder extension. Assessment/Plan Assessment Patient Response Fair Rehabilitation Potential Fair Impairments Identified ADLs Balance Body Mechanics Cognition Coordination/Dexterity Functional Activities Motor Function Pain Weakness Posture Range of Motion Recreational Activities Meaningful Activities Spasticity Stiffness Insight Soft Tissue Mobility Motor Planning Eye-Hand Coordination Treatment Assessment Pt is a 62 year-old male presenting to outpatient OT four years s/p CVA w/ resulting right-sided hemiparesis. PMH: CVA; DM II; depression; HTN; ME; Pacemaker ; OA. Sponge Diver reported that the patient and his have recently moved into [facility]'s Mother's home which has likely led to the decline in patient 's sitting and standing posture, as well as increasing complaints of pain/discomfort w/ self care (due to decreased proper positioning of upper extremity and decreased passive ranging of upper extremity). Findings: Decreased ROM of right upper extremity; neglect of R UE; subluxation of right shoulder; (-) use of subluxation sling with mobility; decreased insight; impaired body awareness and orientation to midline; decreased functional independence; impaired motor planning; spasticity; weakness ; impaired posture in sitting and standing; and reported increasing pain/discomfort w/ assist by rn embedded's with completion of functional ADL tasks. Outpt OT recommended to address these areas w/ focus on rn embedded education to maintain UE AROM and minimize formation of contractures which would negatively impact family/caretakers' abilities to assist patient with functional tasks. Home Exercise Program Patient and rn embedded education re: positioning of R UE at rest. Scapular retraction/squeezes in standing and/or sitting as tolerated by patient. Sitting options to promote upright sitting posture and proper positioning of UE to maintain UE AROM and minimize formation of contractures which would negatively impact family/ caretakers' abilities to assist patient with functional tasks. Reviewed with Patient Home Exercise Program Patient Understanding Fair Plan Comment 12 weeks Treatment Frequency Once a Week Treatment Emphasis Next Session Assess ROM of hand as tolerated Therapeutic Contents Active Range of Motion Adaptive Equipment Education Client Education Cognitive Skills Development Functional Activities Home Exercise Program Joint Protection Manual Therapy Education Neuromuscular Re-Education Self-Care Stretching/Flexibility Activities Therapeutic Activities Therapeutic Exercises Modalities Sensory Re-education Modalities As Needed As Prescribed Patient Instruction Home Exercise Program Plan of Care Questions/Concerns Comment Consult w/ PT Sensory Assessment Sensory Profile2 Functional Wrist/Hand Scan Hand Side OT Outpatient Range of Motion Start: 04/16/18 13:20 Freq: Status: Active Protocol: Document 09/01/18 15:30 AMS (Rec: 09/05/18 12:23 AMS [email or web address]) ROM - Shoulder Shoulder Left Shoulder ROM WFL Yes Forearm ROM Testing Position Sitting Right Active Shoulder ROM WFL No Forearm ROM Testing Position Sitting Shoulder Flex AROM (degrees) 0-35 Query Text: Shoulder Flex PROM (degrees) 0-90 Query Text: Shoulder Ext AROM (degrees) 0-10 Shoulder Ext PROM (degrees) 0-40 Shoulder Abd AROM (degrees) 0-0 Shoulder Abd PROM (degrees) 0-60 Shoulder ER AROM (degrees) 0-0 Shoulder ER PROM (degrees) 0-60 Comments Passive and active ROM measurements taken within pain -free ROM. Initial evaluation: 0-0 act sh ext ROM - Elbow/Forearm Elbow/Forearm Measured in Degrees Left Elbow/Forearm ROM WFL Yes ROM Testing Position Sitting Right Elbow/Forearm ROM WFL No ROM Testing Position Sitting Elbow Flex AROM (degrees) -45-110 Elbow Flex PROM (degrees) -45-135 Elbow Ext AROM (degrees) 10 Elbow Ext PROM (degrees) -45-135 Forearm Sup AROM (degrees) 0 Forearm Sup PROM (degrees) 0 (did not tolerate) Comments Initial evaluation: 0 degrees active elbow ext ROM - Wrist Wrist Range of Motion Measured in Degrees Left ROM Testing Position Sitting Wrist ROM WFL Yes Right ROM Testing Position Sitting Wrist Flex AROM (degrees) 0 Wrist Flex PROM (degrees) 0 (did not tolerate) Wrist Ext AROM Fingers Open (degrees) 0 Wrist Ext PROM Fingers Open (degrees) 0 (did not tolerate) Wrist Ext AROM Fingers Flexed (degrees) 0 Wrist Ext PROM Fingers Flexed (degrees) 0 (did not tolerate) Ulnar Deviation AROM (degrees) 0 Ulnar Deviation PROM (degrees) 0 (did not tolerate) Radial Deviation AROM (degrees) 0 Radial Deviation PROM (degrees) 0 (did not tolerate) Wrist ROM WFL No OT Outpatient Treatment Note - Adult Start: 04/28/18 15:20 Freq: Status: Active Protocol: Document 10/09/18 14:50 AMS (Rec: 10/09/18 14:52 AMS [email or web address]) OT Outpatient Adult Treatment Note Visit Information Visit Number 05/13; visits authorized per year Plan of Care Dates 07/07/18-09/29/18 Insurance Information 42 visits authorized per year; g-codes required Setting Treatment Setting Outpatient Care Visit Type Note Type Discharge Summary General Information General Information Pt is a 62 year-old male presenting to outpatient OT four years s/p CVA w/ resulting right-sided hemiparesis. PMH: CVA; DM II; depression; HTN; ME; Pacemaker; OA - Subjective Observations Sukh has not been seen in the outpt setting since by OT. Thus, discharge paperwork to be completed. - Objective Short Term Goals ALL GOALS DISCHARGED 1. Patient will demonstrate 20 degrees active right elbow extension. 07/14/18= 50% met; 10 degrees active elbow ext 2. Patient will demonstrate 20 degrees active right shoulder extension. 07/14/18= GOAL UPGRADED 3. Patient will be able to execute x 10 consecutive bilateral scapular squeezes in standing, without use of compensatory strategies and/or demonstration of loss of balance, in order to improve upon static standing posture. 08/11/18= 75% met GOALS MET: Pt executed 10 bilateral scapular squeezes in sitting. *MET 06/09/18 Pt rowed x 2 min, with sitting modification and active incorporation of R UE, without RB/or loss of rental manager. *MET 08/08 Fdc Goals ALL GOALS DISCHARGED 1. Patient and rn embedded will be modified independent with execution of right upper extremity home exercise program utilizing provided written and visual instructions. 07/21/18= 50% met 2. Patient will demonstrate 30 degrees active right shoulder extension. 07/21/18= 25% met 3. Patient will be able to obtain and maintain upright static standing posture at midline x 1 minute, x 2 separate trials, in order to maximize functional success in standing with daily task completion with active use of the left upper extremity with object manipulation. 08/11/18= 25% met GOALS MET: Pt was able to maintain upright static sitting posture x 3 minutes without rest breaks. *MET 06/09/18 Patient and rn embedded verbalized 100% understanding in regards to positioning of right upper extremity at rest to maintain available ROM and/ or minimize further loss of ROM. *MET 07/14/18 - - Assessment Assessment of Improvement Sukh has not been seen in the outpt setting since by OT. Thus, discharge paperwork to be completed. - Plan Therapy Recommendations Discharge from Occupational Therapy
== END 2018-10-17 11:16 ==
LOC: OT 13:30
PROVIDERS: Family Provider Family Medicine; PCP Family Medicine; Visit Provider Family Medicine
DX: I63.512 Cerebral infarction due to unspecified occlusion or stenosis of left middle cerebral artery (principal)
CPT/HCPCS: 97110; 97112; 97166; 97530

== ENCOUNTER → 2018-10-01 16:30 | Outpatient (CLI) | payer OTHER, MEDICARE, MEDICAID, SELFPAY ==
--- NOTE | 2018-10-01 16:40 | DI.RAD.S_ITS ---
PROCEDURE: XR CHEST 2V INDICATIONS: CHF. TECHNIQUE: 2 views of the chest were acquired. COMPARISON: [facility], , CHEST 2 VIEW, 08/01/2017, 10:00. FINDINGS: Surgical changes and devices: Unchanged left chest cardiac pacer device with 2 leads projecting to the right atrium and right ventricle. Lungs and pleura: No pleural effusions or pneumothorax. Lungs are clear. There is prominence of the pulmonary vasculature bilaterally. Mediastinum: Mediastinal contours are normal. Heart size is normal. Bones and chest wall: No suspicious bony abnormalities. Soft tissues appear unremarkable. IMPRESSION: No acute cardiopulmonary disease. Dictated by: Antonio Horvath M.D. on 10/02/2018 at 8:17 Approved by: Antonio Horvath M.D. on 10/02/2018 at 8:28
[2018-10-01 17:37] LABS: Hematocrit 40.3 % (41-53); Hemoglobin 13.8 g/dL (13.5-17.5); Mean Corpuscular HGB Conc 34.3 % (30-36); Mean Corpuscular Hemoglobin 31.6 PG (26-34); Mean Corpuscular Volume 92.1 fL (80-100); Platelet Count 188 X10^3/uL (150-400); Red Blood Cell Count 4.38 X10^6/uL (4.5-5.9); Red Cell Distribution Width 15.1 % (11.6-14.8); White Blood Cell Count 3.9 X10^3/uL (4.5-11.0)
[2018-10-01 17:51] LABS: B Type Natriuretic Peptide 39.7 (<100)
[2018-10-01 17:56] LABS: Neutrophils Absolute Manual 2184 /uL (3000-5900); Total Cells Counted 50
[2018-10-01 17:57] LABS: Anisocytosis 1+; Poikilocytosis 1+
[2018-10-01 18:40] LABS: Alanine Aminotransferase 59 IU/L (21-72); Albumin 3.8 g/dL (3.5-5.0); Albumin Globulin Ratio 1.2 (1.0-2.8); Alkaline Phosphatase 61 U/L (38-126); Aspartate Aminotransferase 57 IU/L (17-59); BUN Creatinine Ratio 13.3 (6-22); Bilirubin Total 0.3 mg/dL (0.2-1.3); Blood Urea Nitrogen 12 mg/dL (9-20); Calcium 9.1 mg/dL (8.4-10.2); Carbon Dioxide 27 mmol/L (22-32); Chloride 101 mmol/L (98-107); Estimated Glomerular Filt Rate > 60.0 mL/min (>60); Globulin 3.2 g/dL (1.7-4.1); Glucose 99 mg/dL (80-110); HEMOLYSIS < 15 (0-50); Potassium 4.7 mmol/L (3.4-5.1); Sodium 138 mmol/L (137-145)
== END ==
PROVIDERS: Family Provider Family Medicine; PCP Family Medicine; Visit Provider Family Medicine
DX: I25.10 Atherosclerotic heart disease of native coronary artery without angina pectoris (principal); I50.22 Chronic systolic (congestive) heart failure
CPT/HCPCS: 36415; 71046; 80053; 83880; 85025

== ENCOUNTER → 2018-10-17 12:42 | Outpatient (CLI) | payer OTHER, MEDICARE, MEDICAID, SELFPAY ==
--- NOTE | 2018-10-17 12:44 | DI.ECHO.S_ITS ---
[place] +---------+ [facility] +---------+ : : [address] : : : : [id number] : : : : Phone: [phone]+ Echocardiogram Report + + :Name: AMARI RICKS Study Date: 10/17/2018 Height: 68 in : :[facility] Weight: 167 lb : : Gender: Male BSA: 1.9 m2 : :: 1955 Age: 62 yrs BP: 104/74 mmHg: :Reason For Study: Cardiomyopathy : :Ordering Physician: Dr. Saleh : :[place] Performed By: Shari White : + + Interpretation Summary 1) Normal left ventricular thickness and size with moderately-severely reduced function (EF 30-35%). 2) [place], distal septum, and distal inferior wall are dyskinetic. The mid to distal segments are hypokinetic to severely hypokinetic. 3) Normal right ventricular size and function. Pacemaker lead visualized in the right ventricle. 4) No significant valvular abnormalities. 5) Compared to the Echo done 11/05/2013, no significant change. Procedure: A two-dimensional transthoracic echocardiogram with color flow and Doppler was performed. The study quality was technically adequate. Comparison is made with the echocardiogram of 11/05/2013. The patient was in normal sinus rhythm during the exam. Left Ventricle: The left ventricle is normal in size. Left ventricular wall thickness is normal. There is no ventricular septal defect visualized. Spontaneous contrast is noted consistent with low flow state. The ejection fraction is estimated to be 30-35%. Left ventricular systolic function is moderate to severely reduced. [place], distal septum, and distal inferior wall are dyskinetic. The mid to distal segments are hypokinetic to severely hypokinetic. Diastolic parameters suggest a relaxation abnormality of the left ventricle, consistent with probable normal filling pressures. Right Ventricle: There is a pacemaker lead in the right ventricle. The right ventricle is normal in size and function. Atria: Both atria are normal in size. There is no Doppler evidence for an interatrial shunt. Mitral Valve: The mitral valve is normal in structure and function. There is trace mitral regurgitation. Aortic Valve: The aortic valve is trileaflet. There is no aortic valve stenosis. No aortic regurgitation is present. Tricuspid Valve: The tricuspid valve leaflets are thin and pliable. There is a trace or physiologic amount of tricuspid regurgitation. The right ventricular systolic pressure is estimated to be at least 24 mmHg based on an estimated right atrial pressure of 3 mm Hg. Pulmonic Valve: The pulmonic valve leaflets are thin and pliable; valve motion is normal. There is a trace or physiologic amount of pulmonic regurgitation. Great Vessels: The aortic root is normal size. The ascending aorta is at the upper limits of normal in size. The aortic arch could not be visualized. The IVC is of normal diameter and collapses greater than 50% with a sniff. This suggests a low right atrial pressure of 3 mm Hg. Pericardium/ Pleura There is no pericardial effusion. MMode/2D Measurements & Calculations LVIDd: 5.5 cm LVOT diam: 2.2 cm LVIDs: 4.0 cm Ao root diam: 3.8 cm FS: 26.1 % Aortic Jxn: 3.0 cm EPSS: 1.7 cm asc Aorta Diam: 3.5 cm IVSd: 0.73 cm LVPWd: 0.80 cm LV baer. diameter/BSA (cm/m^2): 2.9 LV sys. diameter/BSA (cm/m^2): 2.1 LA A2 area: 15.6 cm2 RA long axis: 3.7 cm LA A4 area: 16.7 cm2 RA area: 10.1 cm2 LA length (vol): 4.5 cm RA vol: 23.9 ml LA vol: 49.4 ml RA : 12.6 ml/m2 LA vol index: 26.1 ml/m2 IVC diam: 1.7 cm RVD1 (basal): 2.5 cm RVD2 (mid): 2.2 cm TAPSE: 2.1 cm Doppler Measurements & Calculations Ao V2 max: 103.4 cm/sec LVOT Max Dk: 65.8 cm/sec Ao V2 mean: 73.8 cm/sec LV V1 max P.7 mmHg Ao max P.3 mmHg LV V1 VTI: 11.4 cm Ao mean P.4 mmHg МАРИНА(I,D): 2.2 cm2 Ao V2 VTI: 20.9 cm МАРИНА(V,D): 2.5 cm2 sev ratio: 0.55 МАРИНА indexed to BSA (cm^2/m^2): 1.1 MV E max dk: 29.6 cm/sec TR max dk: 231.1 cm/sec MV A max dk: 58.7 cm/sec TR max P.4 mmHg MV E/A: 0.50 PA V2 max: 108.5 cm/sec Med Peak E' Dk: 3.3 cm/sec PA V2 mean: 61.9 cm/sec E/E' med: 9.0 PA mean P.9 mmHg Lat Peak E' Dk: 6.9 cm/sec PA Accel Time: 0.07 sec E/E' lat: 4.3 E/e' average: 6.6 MV dec time: 0.17 sec MV P1/2t: 49.0 msec MV P1/2t max dk: 29.8 cm/sec SV(LVOT): 45.1 ml MVA(P1/2t): 4.5 cm2 Reading Physician:03:54 PM
== END ==
PROVIDERS: Family Provider Family Medicine; PCP Family Medicine; Referring Provider Internal Medicine Cardiovascular Disease; Visit Provider Family Medicine
DX: I42.9 Cardiomyopathy, unspecified (principal)
CPT/HCPCS: 93306

== ENCOUNTER → 2018-11-25 14:19 | Outpatient (CLI) | payer OTHER, MEDICARE, MEDICAID, SELFPAY ==
[2018-11-25 15:30] LABS: Blood Urea Nitrogen 16 mg/dL (9-20); Calcium 9.1 mg/dL (8.4-10.2); Carbon Dioxide 30 mmol/L (22-32); Chloride 97 mmol/L (98-107); Estimated Glomerular Filt Rate > 60.0 mL/min (>60); Glucose 127 mg/dL (80-110); HEMOLYSIS 16 (0-50); Potassium 4.3 mmol/L (3.4-5.1); Sodium 135 mmol/L (137-145)
== END ==
PROVIDERS: Family Provider Family Medicine; PCP Family Medicine; Visit Provider Hospitalist
DX: I25.5 Ischemic cardiomyopathy (principal)
CPT/HCPCS: 36415; 80048

== ENCOUNTER → 2019-01-13 11:37 | Outpatient (CLI) | payer OTHER, MEDICARE, MEDICAID, SELFPAY | PROVIDERS: Family Provider Family Medicine; PCP Family Medicine; Visit Provider Registered Nurse | DX: L02.91 Cutaneous abscess, unspecified (principal) | CPT/HCPCS: 87070; 87075; 87205 ==

== ENCOUNTER → 2019-01-13 11:41 | Outpatient (CLI) | payer OTHER, MEDICARE, MEDICAID, SELFPAY ==
[2019-01-13 12:42] LABS: Appearance Urine UA CLEAR; Bilirubin Urine UA NEGATIVE (NEGATIVE); Color Urine UA YELLOW; Glucose Urine UA TRACE g/dL (Negative); Ketones Urine UA TRACE (NEGATIVE); Leukocyte Esterase Urine UA NEGATIVE (NEGATIVE); Nitrite Urine UA NEGATIVE (Negative); Occult Blood Urine UA NEGATIVE (Negative); Protein Urine UA TRACE (Negative); Specific Gravity Urine UA >=1.030 (1.000-1.035); Urobilinogen Urine UA 0.2 E.U./dL (0.2)
[2019-01-13 14:09] LABS: Cholesterol 151 mg/dL (140-199); HDL Cholesterol 40 mg/dL (40-60); LDL Cholesterol Calculated 98 mg/dL (<100); Triglycerides 64 mg/dL (35-150)
[2019-01-13 14:39] LABS: Prostate Specific Antigen 0.517 ng/mL (0.10-4.00)
== END ==
PROVIDERS: Family Provider Family Medicine; PCP Family Medicine; Visit Provider Family Medicine
DX: R97.20 Elevated prostate specific antigen [PSA] (principal); R30.0 Dysuria; E78.5 Hyperlipidemia, unspecified; L02.91 Cutaneous abscess, unspecified
CPT/HCPCS: 36415; 80061; 81003; 84153; 87070; 87075; 87205

== ENCOUNTER → 2019-01-28 14:12 | Outpatient (CLI) | payer OTHER, MEDICARE, MEDICAID, SELFPAY ==
[2019-01-28 14:54] LABS: Add Manual Diff / Slide Review NO; Basophils Absolute Auto 0 /uL (0-100); Basophils Percent Auto 0.4 % (0-2); Eosinophils Absolute Auto 100 /uL (0-450); Eosinophils Percent Auto 4.8 % (2-4); Hemoglobin 13.2 g/dL (13.5-17.5); Lymphocytes Absolute Auto 700 /uL (1100-4500); Lymphocytes Percent Auto 24.2 % (25-40); Mean Corpuscular HGB Conc 34.6 % (30-36); Mean Corpuscular Hemoglobin 31.8 PG (26-34); Mean Corpuscular Volume 91.8 fL (80-100); Monocytes Absolute Auto 300 /uL (0-900); Monocytes Percent Auto 11.2 % (3-14); Neutrophils Absolute Auto 1700 /uL (1500-7000); Neutrophils Percent Auto 59.4 % (50-75); Platelet Count 171 X10^3/uL (150-400); Red Blood Cell Count 4.15 X10^6/uL (4.5-5.9); White Blood Cell Count 2.9 X10^3/uL (4.5-11.0)
[2019-01-28 15:33] LABS: Hemoglobin A1C% w Est Avg Glu 6.3 % (4.0-6.0)
[2019-01-28 15:36] LABS: Alanine Aminotransferase 46 IU/L (21-72); Albumin 3.8 g/dL (3.5-5.0); Albumin Globulin Ratio 1.1 (1.0-2.8); Alkaline Phosphatase 59 U/L (38-126); Aspartate Aminotransferase 43 IU/L (17-59); Bilirubin Total 0.4 mg/dL (0.2-1.3); Blood Urea Nitrogen 14 mg/dL (9-20); Calcium 9.1 mg/dL (8.4-10.2); Carbon Dioxide 31 mmol/L (22-32); Chloride 94 mmol/L (98-107); Estimated Glomerular Filt Rate > 60.0 mL/min (>60); Globulin 3.5 g/dL (1.7-4.1); Glucose 154 mg/dL (80-110); HEMOLYSIS < 15 (0-50); Potassium 4.4 mmol/L (3.4-5.1); Sodium 132 mmol/L (137-145); Total Protein 7.3 g/dL (6.3-8.2)
[2019-01-28 16:00] LABS: Thyroid Stimulating Hormone 0.52 uIU/mL (0.47-4.68)
== END ==
PROVIDERS: Family Provider Family Medicine; PCP Family Medicine; Visit Provider Family Medicine
DX: E11.9 Type 2 diabetes mellitus without complications (principal); E78.5 Hyperlipidemia, unspecified; I10 Essential (primary) hypertension; I50.22 Chronic systolic (congestive) heart failure; I63.512 Cerebral infarction due to unspecified occlusion or stenosis of left middle cerebral artery
CPT/HCPCS: 36415; 80053; 83036; 84443; 85025

== ENCOUNTER → 2019-01-29 12:40 | Outpatient (CLI) | payer OTHER, MEDICARE, MEDICAID, SELFPAY ==
--- NOTE | 2019-01-29 12:45 | DI.US.S_ITS ---
PROCEDURE: US PERIPH LOW EXTREM RT INDICATIONS: EDEMA TECHNIQUE: Real-time imaging, as well as color and pulse Doppler interrogation, were performed of the lower extremity deep veins from the inguinal ligament to the popliteal fossa. COMPARISON: None. FINDINGS: The common femoral, femoral and popliteal veins are normally compressible, and free of intraluminal thrombus. Color and pulse Doppler demonstrate normal phasic intraluminal flow. There is normal augmentation response to distal compression maneuver. IMPRESSION: No deep venous thrombosis identified within the right lower extremity. Dictated by: Gautam Kapoor [facility] Interpreted: Dennis Garza MD on 01/29/2019 at 14:19 Approved by: Dennis Garza M.D. on 01/29/2019 at 14:57
== END ==
PROVIDERS: Family Provider Family Medicine; PCP Family Medicine; Visit Provider Family Medicine
DX: R60.0 Localized edema (principal); M79.89 Other specified soft tissue disorders; E11.9 Type 2 diabetes mellitus without complications; I63.512 Cerebral infarction due to unspecified occlusion or stenosis of left middle cerebral artery; I10 Essential (primary) hypertension; E78.5 Hyperlipidemia, unspecified
CPT/HCPCS: 93971

== ENCOUNTER → 2019-06-09 13:40 | Outpatient (CLI) | payer OTHER, MEDICARE, MEDICAID, SELFPAY ==
--- NOTE | 2019-06-09 13:46 | DI.RAD.S_ITS ---
PROCEDURE: XR LUMBAR SPINE 2-3V INDICATIONS: low back pain and weekeness TECHNIQUE: 3 views of the lumbar spine were acquired. COMPARISON: [facility], , L-SPINE 2-3 VIEWS, 12/31/2007, 13:26. FINDINGS: Bones: 5 [id number] vertebrae are present. There is normal bony alignment. No vertebral body compression fractures. No suspicious bony lesions. Again noted is a relatively mild degree of degenerative disc disease and facet osteoarthritis along the lumbosacral spine and no subluxation Soft tissues: Overlying bowel gas pattern is normal. No suspicious soft tissue calcifications. IMPRESSION: No trauma found, mild degenerative disc disease and facet osteoarthritis without appreciable worsening from 2007. Dictated by: Scott Wan M.D. on 06/09/2019 at 14:34 Approved by: Scott Wan M.D. on 06/09/2019 at 14:35
== END ==
PROVIDERS: Family Provider Family Medicine; PCP Family Medicine; Visit Provider Family Medicine
DX: M54.5 Low back pain (principal); M51.37 Other intervertebral disc degeneration, lumbosacral region; M47.817 Spondylosis without myelopathy or radiculopathy, lumbosacral region
CPT/HCPCS: 72100

== ENCOUNTER 2019-06-22 09:21 | Inpatient (IN) | payer OTHER, MEDICARE, MEDICAID, SELFPAY ==
[2019-06-22] VITALS (14 sets, daily range): BP systolic 93–117; BP diastolic 45–96; PULSE 65–90; RESP 16–19; TEMP 36.4–37.4; O2SAT 97–100; BMI 24.5
--- NOTE | 2019-06-22 09:34 | DI.RAD.S_ITS ---
PROCEDURE: XR CHEST 1V INDICATIONS: falling confusion TECHNIQUE: One view of the chest was acquired. COMPARISON: [facility], CR, XR CHEST 2V, 10/01/2018, 17:06. FINDINGS: Surgical changes and devices: None. Lungs and pleura: Focal opacity noted in the left lung base may represent pneumonia, atelectasis or given history of fall he pulmonary contusion. No pleural effusions or pneumothorax. Mediastinum: Mediastinal contours appear normal. Heart size is normal. Bones and chest wall: No suspicious bony lesions. Overlying soft tissues appear unremarkable. IMPRESSION: Left basilar opacity which could represent atelectasis, aspiration or less likely pulmonary contusion. MD Gwendolyn, PhD on 06/22/2019 at 10:31 Approved by: Kinjal Snow MD, PhD on 06/22/2019 at 10:34
--- NOTE | 2019-06-22 09:34 | DI.RAD.S_ITS ---
PROCEDURE: XR PELVIS 1-2V INDICATIONS: falling not bearing weight on left TECHNIQUE: 1 view(s) of the pelvis acquired. COMPARISON: [facility], , PELVIS 1 OR 2 VIEWS, 12/31/2007, 13:26. FINDINGS: Bones: No fractures or dislocations. No suspicious bony lesions. There is mild periarticular osteophyte formation at the bilateral hip joints. Soft tissues: Visualized bowel gas pattern is normal. No suspicious soft tissue calcifications. IMPRESSION: Bilateral hip osteoarthritis. No acute fracture. No osseous lesion. If symptoms and/or clinical suspicion for pathology persist, further assessment with repeat, or advanced imaging (e.g., CT, MRI, or bone scan) may be helpful for further assessment. Dictated by: Cheikh Pedraza M.D. on 06/22/2019 at 10:14 Approved by: Cheikh Pedraza M.D. on 06/22/2019 at 10:24
--- NOTE | 2019-06-22 09:40 | DI.CT.S_ITS ---
PROCEDURE: CT HEAD/BRAIN WO CON INDICATIONS: falling 3 times in 24 hours TECHNIQUE: Noncontrast 4.5 mm thick angled axial sections acquired from the foramen magnum to the vertex, with coronal and sagittal reformats. For radiation dose reduction, the following was used: automated exposure control, adjustment of mA and/or kV according to patient size. COMPARISON: [facility], CT, BRAIN W/O CONTRAST, 01/21/2015, 20:20. [facility], CT, HEAD WITHOUT CONTRAST, 11/06/2013, 8:34. FINDINGS: Image quality: Excellent. CSF spaces: Basal cisterns are patent. No extra-axial fluid collections. Ex-vacuo dilatation of the left lateral ventricle. The ventricles are otherwise symmetric in size and shape. Brain: Moderate chronic left middle cerebral artery distribution infarct is present. Within the infarct, there is an 8mm diameter high density focus. There is cerebral volume loss for age, with resultant ventricular and sulcal prominence. There are periventricular and deep white matter chronic small vessel ischemic changes. There is intracranial internal carotid artery atherosclerosis. Skull and face: Calvarium and visualized facial bones appear intact, without suspicious lesions. Sinuses: Visualized sinuses and mastoids are clear. IMPRESSION: Possible small acute hemorrhagic focus within the chronic left middle cerebral artery distribution infarct. Findings discussed with Dr. Calvo on 06.22.19 at 1003 hrs. Dictated by: Cheikh Pedraza M.D. on 06/22/2019 at 10:00 Approved by: Cheikh Pedraza M.D. on 06/22/2019 at 10:04
--- NOTE | 2019-06-22 09:49 | ED_ITS ---
HPI - Fall General Chief Complaint: Trauma Stated Complaint: fell last night Time Seen by Provider: 06/22/19 09:34 Source: patient Mode of arrival: wheelchair Limitations: no limitations History of Present Illness HPI Narrative: Patient is a 63-year-old male with history of CVA with right- sided deficit on anticoagulation. states that he is typically able to bear weight on his left side over over the last 24 hours he has fallen at least 3 times. He has been having increased chronic pain ongoing. states that he did not hit his head or lose consciousness. The 1st time he fell he slipped off the stool shower. She noticed was unable to turned over in bed which is something he is typically able to do. He is really not able to weightbear on that left leg. He can move the toes. Onset (ago): day(s) (1) Fall witnessed: yes, by family Place fall occurred: home Loss of consciousness: none Prolonged down time: no Related Data Home Medications Medication Instructions Recorded Confirmed spironolactone 25 mg tablet 12.5 mg PO QPM tab 12/03/18 06/22/19 Basaglar KwikPen U-100 Insulin 18 unit SUBCUT DAILY PRN 06/22/19 06/22/19 atorvastatin [Lipitor] 20 mg PO BEDTIME 06/22/19 06/22/19 citalopram 30 mg PO DAILY 06/22/19 06/22/19 folic acid 1 mg PO DAILY 06/22/19 06/22/19 lisinopril 10 mg PO QPM 06/22/19 06/22/19 tamsulosin 0.4 mg PO QPM 06/22/19 06/22/19 vitamin [id number] 1 tab PO DAILY 06/22/19 06/22/19 Previous Rx's Medication Instructions Recorded methotrexate sodium 2.5 mg tablet 7.5 mg PO QWEEK #12 tab 07/22/18 insulin aspart U- 100 100 unit/mL See Rx Instructions SUBCUT ACHS 10/14/18 subcutaneous solution #10 ml pen needle, diabetic 32 gauge x #100 each 10/24/1801/17 dabigatran etexilate 150 mg capsule 150 mg PO BID #60 cap 10/29/18 carvedilol 6.25 mg tablet 6.25 mg PO BID #180 tab 12/31/18 metformin [Glucophage] 1,000 mg PO BIDCC #60 tab 01/05/19 etanercept 50 mg/mL (0.98 mL) 50 mg SUBCUT QWEEK #3.92 ml 04/13/19 subcutaneous pen injector Disabled Parking Permit #1 each 05/25/19 Allergies Allergy/AdvReac Type Severity Reaction Status Date / Time polyethylene glycol 3350 Allergy Intermediate HIVES Verified 06/22/19 09:33 [From Miralax] amoxicillin Allergy Mild RASH Verified 06/22/19 09:33 erythromycin base Allergy Mild RASH Verified 06/22/19 09:33 famotidine Allergy Mild RASH Verified 06/22/19 09:33 niacin Allergy Mild RASH Verified 06/22/19 09:33 codeine AdvReac Mild NAUSEA Verified 06/22/19 09:33 Review of Systems Review of Systems ROS Unobtainable: All systems reviewed & are unremarkable except as noted in HPI and below Constitutional Denies chills and Reports frequent falls Cardiovascular Denies chest pain and Denies irregular heart rhythm Respiratory Denies cough and Denies wheezing Gastrointestinal Gastrointestinal: Denies nausea and Denies vomiting Musculoskeletal Reports as per HPI Integumentary/Breasts Denies erythema and Denies rash Neurologic Reports as per HPI and Reports frequent falls Allergic/Immunologic Denies wheezing Exam Initial Vital Signs Initial Vital Signs: Vital Signs Temperature 98.1 F 06/22/19 09:30 Pulse Rate 90 06/22/19 09:30 Respiratory Rate 18 06/22/19 09:30 Blood Pressure 117/96 H 06/22/19 09:30 Pulse Oximetry 98 06/22/19 09:30 GENERAL: Alert male and in no acute distress. HEENT: Head atraumatic,EOMI, pupils reactive, face symmetric, CARDIOVASCULAR: Regular rate and rhythm without murmurs, rubs or gallops. RESPIRATORY: Breath sounds equal bilaterally, no wheezes rales or rhonchi. ABDOMEN: Soft, nontender. Normoactive bowel sounds all 4 quadrants. No guarding or rebound. EXTREMITIES: Pain in left hip and left knee neurovascularly intact no sign of trauma. No pain in left shoulder NEUROLOGICAL: Alert not answering questions persistent right randa paresis SKIN: Warm, dry, no laceration, no petechiae, no rashes or lesions. [facility] Medical History (Updated 06/22/19 @ 16:39 by Felicity Botnick, DO) Type 2 diabetes mellitus (Chronic) Stenosis of left carotid artery (Chronic 12/22/13) Aphasia following cerebrovascular disease (Chronic 01/27/15) Hemiparesis affecting dominant side as late effect of cerebrovascular accident (Chronic 01/27/15) 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 (Chronic 09/01/15) Chronic atrial flutter (Chronic 09/01/15) Cerebrovascular accident (CVA) involving left middle cerebral artery territory (Chronic 09/01/15) Coronary artery disease involving [place]ka coronary artery of [place]ka heart without angina pectoris (Chronic 09/01/15) Essential hypertension (Chronic 09/01/15) Hyperlipidemia (Chronic 09/01/15) Chronic systolic congestive heart failure (Chronic 09/01/15) Antiphospholipid antibody syndrome (Chronic) CAD (coronary artery disease) (Chronic) Cardiac arrhythmia (Chronic) Diabetes mellitus (Chronic) History of stroke with residual deficit (Chronic) Hyperlipidemia (Chronic) Pacemaker (Chronic) Rheumatoid arthritis (Chronic) DVT (deep venous thrombosis) (Resolved) Myocardial infarction (Resolved) Systolic heart failure (Resolved) Surgical History (Updated 07/23/18 @ 15:38 by Aida Jackson) History of angioplasty (Resolved) Presence of cardiac pacemaker (Resolved) Social History marital status: Smoking Status: Never smoker alcohol intake: never substance use type: does not use Social History marital status: Smoking Status: Never smoker alcohol intake: never substance use type: does not use Course Orders Ordered: ED Orders 06/22/19 09:34 XR chest 1V Stat XR pelvis 1-2V Stat 06/22/19 09:40 CT head/brain wo con Stat 06/22/19 10:01 EKG-12 Lead Stat 06/22/19 10:25 Complete Blood Count AUTO DIFF Stat Comprehensive Metabolic Panel Stat Lipase Stat Troponin & CK Cardiac Panel Stat 06/22/19 11:41 XR knee LT 1to2V Stat 06/22/19 11:50 CT head/brain wo con Stat Sodium Chloride (Normal Saline 0.9%) 1,000 mls @ 150 mls/hr IV CONT ANY Last Infusion: 06/22/19 16:40 Dose: 0 mls/hr Admin: 06/22/19 11:47 Dose: 150 mls/hr Vital Signs - 8 hr 06/22/19 11:00 06/22/19 12:00 06/22/19 14:01 Temperature Pulse Rate 81 85 79 Respiratory Rate 18 19 17 Blood Pressure Blood Pressure [Right Arm] 111/68 109/72 107/69 Pulse Oximetry 100 99 100 06/22/19 16:00 06/22/19 17:25 06/22/19 17:26 Temperature 97.6 F 97.5 F L Pulse Rate 75 72 75 Respiratory Rate 16 16 16 Blood Pressure 110/64 Blood Pressure [Right Arm] 103/68 107/68 Pulse Oximetry 98 98 98 06/22/19 17:30 Temperature Pulse Rate 74 Respiratory Rate 17 Blood Pressure Blood Pressure [Right Arm] 104/59 L Pulse Oximetry 97 MDM - Fall Lab Data Attestation: I reviewed the patient's lab results. Result diagrams: 06/22/19 10:25 06/22/19 10:25 Lab Results 06/22/19 06/22/19 Range/Units 10:25 10:25 WBC 5.9 (4.5-11.0) X10^3/uL RBC 3.93 L (4.5-5.9) X10^6/uL Hgb 12.6 L (13.5-17.5) g/dL Hct 35.3 L (41-53) % MCV 89.7 (80-100) fL MCH 32.1 (26-34) PG MCHC 35.8 (30-36) % RDW 13.5 (11.6-14.8) % Plt Count 157 (150-400) X10^3/uL Neut % (Auto) 81.4 H (50-75) % Lymph % (Auto) 10.4 L (25-40) % [place] % (Auto) 6.0 (3-14) % Eos % (Auto) 2.0 (2-4) % Baso % (Auto) 0.2 (0-2) % Neut # (Auto) 4800 (1375-2950) /uL Lymph # (Auto) 600 L (2563-4809) /uL [place] # (Auto) 400 (0-900) /uL Eos # (Auto) 100 (0-450) /uL Baso # (Auto) 0 (0-100) /uL Sodium 132 L (137-145) mmol/L Potassium 4.4 (3.4-5.1) mmol/L Chloride 96 L (98-107) mmol/L Carbon Dioxide 28 (22-32) mmol/L BUN 13 (9-20) mg/dL Creatinine 1.00 (0.66-1.25) mg/dL Estimated GFR > 60.0 (>60) mL/min BUN/Creatinine Ratio 13.0 (6-22) Glucose 151 H (80-110) mg/dL Calcium 9.1 (8.4-10.2) mg/dL Total Bilirubin 0.7 (0.2-1.3) mg/dL AST 33 (17-59) IU/L ALT 18 L (21-72) IU/L Alkaline Phosphatase 70 (38-126) U/L Total Creatine Kinase 50 L (55-170) U/L CK-MB (CK-2) TNP CK-MB (CK-2) Rel Index TNP Troponin I < 0.012 (0.01-0.034) ng/mL Total Protein 7.2 (6.3-8.2) g/dL Albumin 3.4 L (3.5-5.0) g/dL Globulin 3.8 (1.7-4.1) g/dL Albumin/Globulin Ratio 0.9 L (1.0-2.8) Lipase 34 (23-300) U/L Urine Dip Bedside Urine Glucose Negative Bedside Urine Bilirubin - Negative Bedside Urine Ketone - Negative Urine Specific [place] 1.010 Bedside Urine Occult Blood - Negative Bedside Urine pH 8.0 Bedside Urine Protein - Negative Bedside Urine Urobilinogen - Negative Bedside Urine Nitrite - Negative Bedside Urine Leukocytes - Negative Esterase Imaging Data CT scan - head: Radiologist's impression: PROCEDURE: CT HEAD/BRAIN WO CON INDICATIONS: falling 3 times in 24 hours TECHNIQUE: Noncontrast 4.5 mm thick angled axial sections acquired from the foramen magnum to the vertex, with coronal and sagittal reformats. For radiation dose reduction, the following was used: automated exposure control, adjustment of mA and/or kV according to patient size. COMPARISON: [facility], CT, BRAIN W/O CONTRAST, 01/21/2015, 20:20. [facility], CT, HEAD WITHOUT CONTRAST, 11/06/2013, 8:34. FINDINGS: Image quality: Excellent. CSF spaces: Basal cisterns are patent. No extra-axial fluid collections. Ex- vacuo dilatation of the left lateral ventricle. The ventricles are otherwise symmetric in size and shape. Brain: Moderate chronic left middle cerebral artery distribution infarct is present. Within the infarct, there is an 8mm diameter high density focus. There is cerebral volume loss for age, with resultant ventricular and sulcal prominence. There are periventricular and deep white matter chronic small vessel ischemic changes. There is intracranial internal carotid artery atherosclerosis. Skull and face: Calvarium and visualized facial bones appear intact, without suspicious lesions. Sinuses: Visualized sinuses and mastoids are clear. IMPRESSION: Possible small acute hemorrhagic focus within the chronic left middle cerebral artery distribution infarct. Findings discussed with Dr. Calvo on 06.22.19 at 1003 hrs. Dictated by: Cheikh Pedraza M.D. on 06/22/2019 at 10:00 Chest x-ray: Radiologist's impression: PROCEDURE: XR CHEST 1V INDICATIONS: falling confusion TECHNIQUE: One view of the chest was acquired. COMPARISON: [facility], CR, XR CHEST 2V, 10/01/2018, 17:06. FINDINGS: Surgical changes and devices: None. Lungs and pleura: Focal opacity noted in the left lung base may represent pneumonia, atelectasis or given history of fall he pulmonary contusion. No pleural effusions or pneumothorax. Mediastinum: Mediastinal contours appear normal. Heart size is normal. Bones and chest wall: No suspicious bony lesions. Overlying soft tissues appear unremarkable. IMPRESSION: Left basilar opacity which could represent atelectasis, aspiration or less likely pulmonary contusion. MD Gwendolyn, PhD on 06/22/2019 at 10:31 Approved by: Kinjal Snow MD, PhD on 06/22/2019 at 10:34 left knee: Radiologist's impression: PROCEDURE: XR KNEE LT 1TO2V INDICATIONS: pain TECHNIQUE: 3 views of the knee were acquired. COMPARISON: Contralateral CR, KNEE 1-2 VIEWS RIGHT, 07/08/2013, 15:33. FINDINGS: Bones: No acute fractures or dislocations. Well-corticated ostiolysis of the anterior tibial tuberosity seen on the lateral projection likely due to remote fracture versus remote [place]-Schlatter's disease. No collapse of the tibial plateau. No suspicious bony lesions. Extensive narrowing of the medial joint space compartment. Soft tissues: No significant joint effusion. No suspicious soft tissue calcifications. Vascular calcification. IMPRESSION: 1. No acute fracture dislocation. No significant joint effusion. 2. Probable remote fracture of the anterior tibial tuberosity. 3. Moderate to severe DJD. Dictated by: Daquan Christiansen M.D. on 06/22/2019 at 12:07 pelvis: Radiologist's impression: PROCEDURE: XR PELVIS 1-2V INDICATIONS: falling not bearing weight on left TECHNIQUE: 1 view(s) of the pelvis acquired. COMPARISON: [facility], CR, PELVIS 1 OR 2 VIEWS, 12/31/2007, 13:26. FINDINGS: Bones: No fractures or dislocations. No suspicious bony lesions. There is mild periarticular osteophyte formation at the bilateral hip joints. Soft tissues: Visualized bowel gas pattern is normal. No suspicious soft tissue calcifications. IMPRESSION: Bilateral hip osteoarthritis. No acute fracture. No osseous lesion. If symptoms and/or clinical suspicion for pathology persist, further assessment with repeat, or advanced imaging (e.g., CT, MRI, or bone scan) may be helpful for further assessment. Dictated by: Cheikh Pedraza M.D. on 06/22/2019 at 10:14 ct head #2: Radiologist's impression: PROCEDURE: CT HEAD/BRAIN WO CON INDICATIONS: Follow up bleed on first CT TECHNIQUE: Noncontrast 4.5 mm thick angled axial sections acquired from the foramen magnum to the vertex, with coronal and sagittal reformats. For radiation dose reduction, the following was used: automated exposure control, adjustment of mA and/or kV according to patient size. COMPARISON: [facility], CT, BRAIN W/O CONTRAST, 01/21/2015, 20:20. [facility], CT, CT HEAD/BRAIN WO CON, 06/22/2019, 9:36. FINDINGS: Image quality: Excellent. CSF spaces: Basal cisterns are patent. No extra-axial fluid collections. The ventricles are unchanged in size and shape. There is ex vacuo dilatation of the left lateral ventricle secondary to associated encephalomalacia. Brain: There is a large region of encephalomalacia redemonstrated in the left frontal, parietal, and temporal lobes consistent with a prior MCA territory infarct. Within this region, a small ovoid area of relative hyperattenuation measuring up to 0.9 cm with indistinct margins appear slightly increased in size compared to the recent study 4 hours prior to the current exam. Elsewhere, no other areas of suspected hemorrhage. No mass or mass effect. Skull and face: Calvarium and visualized facial bones are intact, without suspicious lesions. Sinuses: Visualized sinuses and mastoids are clear. IMPRESSION: 1. Left-sided encephalomalacia consistent with a prior left MCA territory infarct redemonstrated. 2. Small focus of relative hyperattenuation in this region appear slightly increased in size compared to the recent comparison study 4 hours prior. Although this may be due to differences in slice acquisition, a small region of subarachnoid hemorrhage cannot be excluded due to history of recent falls. If clinically indicated, an MRI may be performed for further evaluation. Findings discussed with Dr. Calvo on 06/22/19 at 2:05 PM. Dictated by: Ko Elder M.D. on 06/22/2019 at 13:57 ECG Data Attestation: I personally reviewed and interpreted this ECG as follows: Prior ECG tracings: available for review Interpretation: Normal sinus rhythm rate 84 p.r. interval [address] changes QTC 451 MDM Narrative Medical decision making narrative: The patient has an initial questionable subarachnoid hemorrhage on the initial head CT. He has significant pain in his left leg no obvious fracture he is unable to weightbear. The patient stayed for repeat head CT in 4 hours. I spoke with Radiology is concerned that the area of concern may have grown 1-2 mm. Images were then pushed to [facility]. 4:10pm Neuro surgery at [facility] Hart, has been updated patient's symptoms test results pushed repeat was not unfortunately however he said based on the initial head CT he does not think this is an intracranial hemorrhage or subarachnoid hemorrhage. He states MRI would be most helpful however due to patient's cardiac stents patient unable to have an MRI. At this time I do not believe patient's head CT to be causing patient's symptoms. He seems to be at his baseline mental status. However he signified gently week is unable to care for him at home. I spoke with Dr. Epstein patient's PCP, who happily accepts. Discharge Plan Departure Patient Disposition: Admitted as Observation Clinical Impression: Weakness Discharge Date/Time: 06/22/19 17:51 Interventions: ED Discharge Assessment Last Done: 06/22/19 17:26 Admit Date/Time: 06/22/19 16:40 Admit Provider: Delfino Epstein
[2019-06-22 10:34] LABS: Add Manual Diff / Slide Review NO; Basophils Absolute Auto 0 /uL (0-100); Basophils Percent Auto 0.2 % (0-2); Eosinophils Absolute Auto 100 /uL (0-450); Hematocrit 35.3 % (41-53); Hemoglobin 12.6 g/dL (13.5-17.5); Lymphocytes Absolute Auto 600 /uL (1100-4500); Lymphocytes Percent Auto 10.4 % (25-40); Mean Corpuscular HGB Conc 35.8 % (30-36); Mean Corpuscular Hemoglobin 32.1 PG (26-34); Mean Corpuscular Volume 89.7 fL (80-100); Monocytes Absolute Auto 400 /uL (0-900); Neutrophils Absolute Auto 4800 /uL (1500-7000); Neutrophils Percent Auto 81.4 % (50-75); Platelet Count 157 X10^3/uL (150-400); Red Blood Cell Count 3.93 X10^6/uL (4.5-5.9); Red Cell Distribution Width 13.5 % (11.6-14.8); White Blood Cell Count 5.9 X10^3/uL (4.5-11.0)
[2019-06-22 10:54] LABS: Alanine Aminotransferase 18 IU/L (21-72); Albumin 3.4 g/dL (3.5-5.0); Albumin Globulin Ratio 0.9 (1.0-2.8); Alkaline Phosphatase 70 U/L (38-126); Aspartate Aminotransferase 33 IU/L (17-59); Bilirubin Total 0.7 mg/dL (0.2-1.3); Blood Urea Nitrogen 13 mg/dL (9-20); Calcium 9.1 mg/dL (8.4-10.2); Carbon Dioxide 28 mmol/L (22-32); Chloride 96 mmol/L (98-107); Creatine Kinase 50 U/L (55-170); Estimated Glomerular Filt Rate > 60.0 mL/min (>60); Globulin 3.8 g/dL (1.7-4.1); Glucose 151 mg/dL (80-110); HEMOLYSIS 18 (0-50); Lipase 34 U/L (23-300); Potassium 4.4 mmol/L (3.4-5.1); Sodium 132 mmol/L (137-145); Total Protein 7.2 g/dL (6.3-8.2)
[2019-06-22 11:05] LABS: Troponin I < 0.012 ng/mL (0.01-0.034)
--- NOTE | 2019-06-22 11:41 | DI.RAD.S_ITS ---
PROCEDURE: XR KNEE LT 1TO2V INDICATIONS: pain TECHNIQUE: 3 views of the knee were acquired. COMPARISON: Contralateral CR, KNEE 1-2 VIEWS RIGHT, 07/08/2013, 15:33. FINDINGS: Bones: No acute fractures or dislocations. Well-corticated ostiolysis of the anterior tibial tuberosity seen on the lateral projection likely due to remote fracture versus remote [place]-Schlatter's disease. No collapse of the tibial plateau. No suspicious bony lesions. Extensive narrowing of the medial joint space compartment. Soft tissues: No significant joint effusion. No suspicious soft tissue calcifications. Vascular calcification. IMPRESSION: 1. No acute fracture dislocation. No significant joint effusion. 2. Probable remote fracture of the anterior tibial tuberosity. 3. Moderate to severe DJD. Dictated by: Daquan Christiansen M.D. on 06/22/2019 at 12:07 Approved by: Daquan Christiansen M.D. on 06/22/2019 at 12:14
[2019-06-22] MEDS: SODIUM CHLORIDE 0.9% 1,000 ML 150 ML IV (11:47)
--- NOTE | 2019-06-22 11:50 | DI.CT.S_ITS ---
PROCEDURE: CT HEAD/BRAIN WO CON INDICATIONS: Follow up bleed on first CT TECHNIQUE: Noncontrast 4.5 mm thick angled axial sections acquired from the foramen magnum to the vertex, with coronal and sagittal reformats. For radiation dose reduction, the following was used: automated exposure control, adjustment of mA and/or kV according to patient size. COMPARISON: [facility], CT, BRAIN W/O CONTRAST, 01/21/2015, 20:20. [facility], CT, CT HEAD/BRAIN WO CON, 06/22/2019, 9:36. FINDINGS: Image quality: Excellent. CSF spaces: Basal cisterns are patent. No extra-axial fluid collections. The ventricles are unchanged in size and shape. There is ex vacuo dilatation of the left lateral ventricle secondary to associated encephalomalacia. Brain: There is a large region of encephalomalacia redemonstrated in the left frontal, parietal, and temporal lobes consistent with a prior MCA territory infarct. Within this region, a small ovoid area of relative hyperattenuation measuring up to 0.9 cm with indistinct margins appear slightly increased in size compared to the recent study 4 hours prior to the current exam. Elsewhere, no other areas of suspected hemorrhage. No mass or mass effect. Skull and face: Calvarium and visualized facial bones are intact, without suspicious lesions. Sinuses: Visualized sinuses and mastoids are clear. IMPRESSION: 1. Left-sided encephalomalacia consistent with a prior left MCA territory infarct redemonstrated. 2. Small focus of relative hyperattenuation in this region appear slightly increased in size compared to the recent comparison study 4 hours prior. Although this may be due to differences in slice acquisition, a small region of subarachnoid hemorrhage cannot be excluded due to history of recent falls. If clinically indicated, an MRI may be performed for further evaluation. Findings discussed with Dr. Calvo on 06/22/19 at 2:05 PM. Dictated by: Ko Elder M.D. on 06/22/2019 at 13:57 Approved by: Ko Elder M.D. on 06/22/2019 at 14:13
--- NOTE | 2019-06-22 16:51 | PM.HP.1 ---
History of Present Illness Date Patient Seen: 06/22/19 Time Patient Seen: 16:51 Chief complaint: fell last night Narrative: 53-year-old male with coronary artery disease and cerebrovascular disease diabetes anti phospholipid antibody syndrome with atrial fibrillation. Patient has a history of right-sided deficits and aphasia from previous cerebrovascular accident. His has noticed over the past 2-3 days he has had increasing difficulty with weakness. She says it stems to a fall in the shower. He has had 3 falls since then. He normally walks with a cane and a brace and able to mobilize fairly well. He does not typically fall. Over the last 24 hours he has had increasing weakness of the left leg and now unable to bear weight and was brought to the emergency department. He is not able to provide a history because of aphasia. He does recognize me. Does say a few words and there is some comprehension. His states that he has been in his usual state of health. He is tired and sleeps a lot. They have not noticed any fevers or chills. Other than the difficulty with the left leg they have not noticed further weakness on the right side. Difficulty with bowel movements urination shortness of breath coughing fevers or chills. Patient History Medical History (Updated 06/22/19 @ 16:39 by Felicity Calvo DO) Type 2 diabetes mellitus (Chronic) Stenosis of left carotid artery (Chronic 12/22/13) Aphasia following cerebrovascular disease (Chronic 01/27/15) Hemiparesis affecting dominant side as late effect of cerebrovascular accident (Chronic 01/27/15) 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 (Chronic 09/01/15) Chronic atrial flutter (Chronic 09/01/15) Cerebrovascular accident (CVA) involving left middle cerebral artery territory (Chronic 09/01/15) Coronary artery disease involving [place] coronary artery of [place] heart without angina pectoris (Chronic 09/01/15) Essential hypertension (Chronic 09/01/15) Hyperlipidemia (Chronic 09/01/15) Chronic systolic congestive heart failure (Chronic 09/01/15) Antiphospholipid antibody syndrome (Chronic) CAD (coronary artery disease) (Chronic) Cardiac arrhythmia (Chronic) Diabetes mellitus (Chronic) History of stroke with residual deficit (Chronic) Hyperlipidemia (Chronic) Pacemaker (Chronic) Rheumatoid arthritis (Chronic) DVT (deep venous thrombosis) (Resolved) Myocardial infarction (Resolved) Systolic heart failure (Resolved) Surgical History (Updated 06/22/19 @ 19:08 by Vidya Yao RN) AICD (automatic cardioverter/defibrillator) present (Acute) History of angioplasty (Resolved) Presence of cardiac pacemaker (Resolved) Social History marital status: household members: spouse Smoking Status: Never smoker alcohol intake: never substance use type: does not use Family & Social History Safety & Behavioral: Feels Safe in Current Yes Environment Been Physically Hurt or No Threatened By a Person Tobacco & Substance use: Smoking Status Never smoker alcohol intake never alcohol intake frequency 0-2 drinks per day Substance Use Type does not use Meds Home Medications Medication Instructions Recorded Confirmed Type methotrexate sodium 2.5 mg tablet 7.5 mg PO QWEEK #12 tab 07/22/18 06/22/19 Rx insulin aspart U- 100 100 unit/mL See Rx Instructions SUBCUT ACHS 10/14/18 06/22/19 Rx subcutaneous solution #10 ml pen needle, diabetic 32 gauge x #100 each 10/24/18 06/22/19 Rx 01/17 dabigatran etexilate 150 mg capsule 150 mg PO BID #60 cap 10/29/18 06/22/19 Rx carvedilol 6.25 mg tablet 6.25 mg PO BID #180 tab 11/03/18 06/22/19 Rx spironolactone 25 mg tablet 12.5 mg PO QPM tab 12/03/18 06/22/19 History metformin [Glucophage] 1,000 mg PO BIDCC #60 tab 01/05/19 06/22/19 Rx etanercept 50 mg/mL (0.98 mL) 50 mg SUBCUT QWEEK #3.92 ml 04/13/19 06/22/19 Rx subcutaneous pen injector Disabled Parking Permit #1 each 05/25/19 06/22/19 Rx Basaglar KwikPen U-100 Insulin 18 unit SUBCUT DAILY PRN 06/22/19 06/22/19 History atorvastatin [Lipitor] 20 mg PO BEDTIME 06/22/19 06/22/19 History citalopram 30 mg PO DAILY 06/22/19 06/22/19 History folic acid 1 mg PO DAILY 06/22/19 06/22/19 History lisinopril 10 mg PO QPM 06/22/19 06/22/19 History tamsulosin 0.4 mg PO QPM 06/22/19 06/22/19 History vitamin H-[id number]-ojlxlvp 1 tab PO DAILY 06/22/19 06/22/19 History Allergies Allergy/AdvReac Type Severity Reaction Status Date / Time polyethylene glycol 3350 Allergy Intermediate HIVES Verified 06/22/19 09:33 [From Miralax] amoxicillin Allergy Mild RASH Verified 06/22/19 09:33 erythromycin base Allergy Mild RASH Verified 06/22/19 09:33 famotidine Allergy Mild RASH Verified 06/22/19 09:33 niacin Allergy Mild RASH Verified 06/22/19 09:33 codeine AdvReac Mild NAUSEA Verified 06/22/19 09:33 Exam Vital Signs (past 8 hours): - 06/22/19 09:30 06/22/19 10:00 06/22/19 11:00 Temperature 98.1 F 98.4 F Pulse Rate 90 78 81 Respiratory Rate 18 18 18 Blood Pressure 117/96 H 105/64 Blood Pressure [Right Arm] 111/68 Pulse Oximetry 98 99 100 06/22/19 12:00 06/22/19 14:01 06/22/19 16:00 Temperature 97.6 F Pulse Rate 85 79 75 Respiratory Rate 19 17 16 Blood Pressure Blood Pressure [Right Arm] 109/72 107/69 103/68 Pulse Oximetry 99 100 98 Oxygen Delivery Method Room Air Narrative Exam Narrative: Gen.: Alert poor historian due to aphasia HEENT: Pupils equal round and reactive or mucosa is moist facial muscle weakness Cardio: Irregular rate and rhythm Respiratory: Lungs are clear to auscultation no wheezes or crackles normal respiratory effort. Abdomen: Soft nontender no rebound or guarding no liver spleen enlargement no appreciable hernias Extremities: Patient has late effects from his cerebrovascular accident with weakness chronic on the right side Neurologic: Aphasic facial muscle weakness right-sided hemiparesis Objective Labs Result Diagrams: 06/22/19 10:25 06/22/19 10:25 Labs: Laboratory Results - last 24 hr 06/22/19 06/22/19 10:25 10:25 WBC 5.9 RBC 3.93 L Hgb 12.6 L Hct 35.3 L MCV 89.7 MCH 32.1 MCHC 35.8 RDW 13.5 Plt Count 157 Neut % (Auto) 81.4 H Lymph % (Auto) 10.4 L [place] % (Auto) 6.0 Eos % (Auto) 2.0 Baso % (Auto) 0.2 Neut # (Auto) 4800 Lymph # (Auto) 600 L [place] # (Auto) 400 Eos # (Auto) 100 Baso # (Auto) 0 Sodium 132 L Potassium 4.4 Chloride 96 L Carbon Dioxide 28 BUN 13 Creatinine 1.00 Estimated GFR > 60.0 BUN/Creatinine Ratio 13.0 Glucose 151 H Calcium 9.1 Total Bilirubin 0.7 AST 33 ALT 18 L Alkaline Phosphatase 70 Total Creatine Kinase 50 L CK-MB (CK-2) TNP CK-MB (CK-2) Rel Index TNP Troponin I < 0.012 Total Protein 7.2 Albumin 3.4 L Globulin 3.8 Albumin/Globulin Ratio 0.9 L Lipase 34 Assessment & Plan Assessment & Plan narrative: 63-year-old male with significant past medical history including cerebrovascular accident comes in with fall and now left-sided leg weakness versus pain. CT scan shows possible small subarachnoid hemorrhage. On the right side. Possibly interval increase a small amount during the emergency room evaluation 4 hours later. After discussion with Neurosurgery. Recommend he be admitted for further monitoring and follow-up. Did not deemed necessary for being transferred to tertiary care center. Patient's CT scan will be re-evaluated in 24 hours. His anticoagulation will be held due to the size and the small this it will not be reversed at this point. There is question whether not this is an acute subacute or 2 subarachnoid hemorrhage. We may consider an MRI scan as well. He will be admitted to the medical floor. With neurological checks and further evaluation. Cerebrovascular disease. Patient has had a previous stroke left-sided MCA distribution with right sided significant deficits and aphasia. Patient is on blood pressure control cholesterol medication and anticoagulation. Due to his possible bleed his anticoagulation will be held. Coronary artery disease status post myocardial infarction. He will be continued on his beta-roz statin and keep his blood pressure control. No active chest pain. Will continue to monitor. Ischemic cardiomyopathy with an ejection fraction of 30% patient has a pacemaker in place defibrillator. His on anticoagulation due to his risk of cerebrovascular disease. Will need further delineation of this bleed and then will have to make a decision about long-term anticoagulation. Insulin-dependent diabetes. Patient will be placed on Lantus insulin with sliding scale coverage. And a diabetic diet. His metformin will be held. Rheumatoid arthritis. Patient is on methotrexate and and Terrace apt. These 2 medications will be held while he is here in the hospital. Leg pain and inability to walk. Patient will have physical therapy and occupational therapy evaluation while here in the hospital. Disposition and plan. Will admit the patient as inpatient. Anticipate him being more and 2 midnights.
[2019-06-22] MEDS: LISINOPRIL 10 MG TABLET PO (18:59)
[2019-06-22] MEDS: TAMSULOSIN 0.4 MG CAPSULE PO (18:59)
[2019-06-22] MEDS: ACETAMINOPHEN 325 MG TABLET 650 MG PO (18:59)
[2019-06-22] MEDS: SPIRONOLACTONE 25 MG TABLET 12.5 MG PO (19:12)
--- NOTE | 2019-06-22 20:33 | PC.NURSE ---
2019 -Pt used call light appropriately. Able to indicate need for urinal. Void per urinal. Repositioned self from side lying to back and back to side without assistance. 1824 - Pt to room from ER. Transfer to bed via slider board. Pt's assist with admission questions. Pt can nod head and gesture. Attempt to use communication board to have pt rate pain. Unable to indicate. Pt state that Right shoulder is chronically painful r/t arthritis present prior to CVA causing right side weakness. Also reports pain to LLE r/t recent falls at home. 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 Bruise to left brown area. Assist to void per urinal. Oriented to room and routine. Call light in reach. Bed alarm on.
[2019-06-22] MEDS: CARVEDILOL 6.25 MG TABLET PO (21:25)
[2019-06-22] MEDS: SODIUM CHLORIDE 0.9% FLUSH 10 ML IV (21:25)
[2019-06-22] MEDS: ATORVASTATIN 20 MG TABLET PO (21:26)
[2019-06-23] VITALS (10 sets, daily range): BP systolic 101–116; BP diastolic 54–70; PULSE 57–76; RESP 14–18; TEMP 36.6–37.4; O2SAT 97–100
[2019-06-23] MEDS: ACETAMINOPHEN 325 MG TABLET 650 MG PO (00:57)
--- NOTE | 2019-06-23 07:52 | P.PN_ITS ---
Subjective Date Patient Seen: 06/23/19 Time Patient Seen: 07:47 Interval history: Patient seen and evaluated this morning. Patient's at bedside. Reconfirmed history with her. Patient is aphasic. But has good understanding. Things have been stable overnight. Has been doing lots of sleeping which is not atypical for him. He wakes up again and recognizes me. Says he is hungry for breakfast. Vital signs have been stable be able afebrile. Exam Vital Signs (past 8 hours): - 06/22/19 23:51 06/23/19 04:55 06/23/19 04:56 Temperature 97.9 F 98.1 F Pulse Rate 65 69 Respiratory Rate 16 14 Blood Pressure 93/55 L 111/65 Pulse Oximetry 99 99 99 06/23/19 07:31 Temperature 98 F Pulse Rate 76 Respiratory Rate 18 Blood Pressure 101/54 L Pulse Oximetry 98 Oxygen Delivery Method Room Air Narrative Exam Narrative: Gen.: Alert a phasic HEENT: Pupils equal round and reactive or mucosa is moist neck is supple Cardio: Regular rate and rhythm Respiratory: Lungs are clear no wheezes or crackles Abdomen: Soft nontender Extremities: No hip her pelvis pain on palpation. There is pain over the distal femur and knee area on the left leg. Patient has right-sided significant deficits with spasticity and hemiparesis. Objective Labs Result Diagrams: 06/22/19 10:25 06/22/19 10:25 Labs: Laboratory Results - last 24 hr 06/22/19 06/22/19 10:25 10:25 WBC 5.9 RBC 3.93 L Hgb 12.6 L Hct 35.3 L MCV 89.7 MCH 32.1 MCHC 35.8 RDW 13.5 Plt Count 157 Neut % (Auto) 81.4 H Lymph % (Auto) 10.4 L [place] % (Auto) 6.0 Eos % (Auto) 2.0 Baso % (Auto) 0.2 Neut # (Auto) 4800 Lymph # (Auto) 600 L [place] # (Auto) 400 Eos # (Auto) 100 Baso # (Auto) 0 Sodium 132 L Potassium 4.4 Chloride 96 L Carbon Dioxide 28 BUN 13 Creatinine 1.00 Estimated GFR > 60.0 BUN/Creatinine Ratio 13.0 Glucose 151 H Calcium 9.1 Total Bilirubin 0.7 AST 33 ALT 18 L Alkaline Phosphatase 70 Total Creatine Kinase 50 L CK-MB (CK-2) TNP CK-MB (CK-2) Rel Index TNP Troponin I < 0.012 Total Protein 7.2 Albumin 3.4 L Globulin 3.8 Albumin/Globulin Ratio 0.9 L Lipase 34 Assessment & Plan Assessment & Plan narrative: Subarachnoid hemorrhage right-sided?. Possible increase in size. Patient is off his blood thinners. Does not show any significant further neurological deficits overnight. We will go ahead and repeat CT scan tomorrow morning. See if there has been interval progression of this. Patient cannot do an MRI because of his pacemaker. Appears to be stable. Inability to ambulate. Patient has hemiparesis on the right. Now significant pain to palpation to his knee and distal femur area. His x-ray shows no fracture. Pelvis x-ray shows no fracture. Patient work with physical therapy today. Get him out of bed. Cerebrovascular disease. Previous mcg a left-sided stroke. Continue with prevention with blood pressure statin. His anticoagulation is held Coronary artery disease status post myocardial infarction. He will be continued on his beta-roz statin and keep his blood pressure control. No active chest pain. Will continue to monitor. Ischemic cardiomyopathy with an ejection fraction of 30% patient has a pacema ker in place defibrillator. Heart rate is stable. He is not in fluid overload. Will stop IV fluid. Place on diabetic diet. Insulin-dependent diabetes. Patient will be placed on Lantus insulin with sliding scale coverage. And a diabetic diet. His metformin will be held. Rheumatoid arthritis. Patient is on methotrexate and and Terrace apt. These 2 medications will be held while he is here in the hospital. Leg pain and inability to walk. Right-sided hemiparesis. Left knee thigh pain. Unable to transfer get out of bed without 2 people assistance. Disposition and plan. Will admit the patient as inpatient. Anticipate him being more and 2 midnights. Quality VTE Deep Vein Thrombosis/Pulmonary Embolism Present on Admission: No
[2019-06-23] MEDS: INSULIN GLARGINE 100 UNIT/ML 3ML PEN 15 UNIT SUBCUT (08:42)
[2019-06-23] MEDS: CARVEDILOL 6.25 MG TABLET PO ×2 (08:43→21:00)
[2019-06-23] MEDS: SODIUM CHLORIDE 0.9% FLUSH 10 ML IV ×2 (08:43→21:00)
[2019-06-23] MEDS: CITALOPRAM 20 MG TABLET 30 MG PO (08:43)
--- NOTE | 2019-06-23 10:50 | PT.IIE ---
Surgical History (Last Updated 06/22/19 @ 19:08 by Vidya Yao RN) AICD (automatic cardioverter/defibrillator) present (Acute) History of angioplasty (Resolved) Presence of cardiac pacemaker (Resolved) Medical History (Last Updated 07/23/18 @ 15:38 by Aida Jackson) Type 2 diabetes mellitus (Chronic) Stenosis of left carotid artery (Chronic 12/22/13) Aphasia following cerebrovascular disease (Chronic 01/27/15) Hemiparesis affecting dominant side as late effect of cerebrovascular accident (Chronic 01/27/15) 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 (Chronic 09/01/15) Chronic atrial flutter (Chronic 09/01/15) Cerebrovascular accident (CVA) involving left middle cerebral artery territory (Chronic 09/01/15) Coronary artery disease involving [place] coronary artery of [place] heart without angina pectoris (Chronic 09/01/15) Essential hypertension (Chronic 09/01/15) Hyperlipidemia (Chronic 09/01/15) Chronic systolic congestive heart failure (Chronic 09/01/15) Antiphospholipid antibody syndrome (Chronic) CAD (coronary artery disease) (Chronic) Cardiac arrhythmia (Chronic) Diabetes mellitus (Chronic) History of stroke with residual deficit (Chronic) Hyperlipidemia (Chronic) Pacemaker (Chronic) Rheumatoid arthritis (Chronic) DVT (deep venous thrombosis) (Resolved) Myocardial infarction (Resolved) Systolic heart failure (Resolved) Physical Therapy Inpatient Evaluation/Re-Eval M1 PT/OT-IP Prior Functional Status Start: 06/23/19 12:11 Freq: NEEDED Status: Active Protocol: Document 06/23/19 10:50 AB (Rec: 06/23/19 12:44 AB [id number]) Medical Review Prior Functional Status Medical History Reviewed Yes Communication pt has aphasia and unable to verbalize answers to questions Mobility and Gait per spouse: pt is modified independent with transfers, ambulation using a quad cane; able to ambulate ~ 2-3 blocks Activities of Daily Living and IADL's spouse provides some assistance with dressing Social History Household Members spouse Living Arrangements House Number of Stairs To Enter/Railing? 3 steps with bilateral rail Home Environment Walk in Shower Home Equipment Four Wheel Walker Quad Cane Manual Wheelchair Shower Seat without Backrest Hand Held Shower Grab Bars In Shower Employment Status Retired M2 PT-IP Current Condition Start: 06/23/19 12:11 Freq: NEEDED Status: Active Protocol: Document 06/23/19 10:50 AB (Rec: 06/23/19 12:44 AB [id number]) Physical Therapy Current Condition Current Condition Evaluation Date 06/23/19 Treatment Diagnosis CVA; difficulty in walking Onset Date 06/22/19 Precautions Other Precautions falls M3 PT-IP Subjective Start: 06/23/19 12:11 Freq: NEEDED Status: Active Protocol: Document 06/23/19 10:50 AB (Rec: 06/23/19 12:44 AB [id number]) Subjective Physical Therapy Visit Type Type Initial Evaluation Visit Start Time 10:52 Visit Stop Time 11:20 Total Visit Minutes 28 Number of FLAKER OPERATOR Visits 0 Physical Therapy Visit Comments Patient Comments pt able to follow instructions but unable to verbalize answers M4 PT-IP Mobility and Gait Start: 06/23/19 12:11 Freq: NEEDED Status: Active Protocol: Document 06/23/19 10:50 AB (Rec: 06/23/19 12:44 AB [id number]) PT-Bed Mobility Assessment Supine to Sit Supine to Sit Standby Assistance Bedrails Sit to Supine Sit to Supine Standby Assistance Bedrails PT-Transfer Assessment Sit to and From Stand Sit to and from Stand Minimal Assistance Equipment Transfer Assistive Device Small Based Quad Cane Orthotic/Prosthetic Devices or Brace: No Transfers Transfer Destination Bed Chair Transfer Technique Stand Step Pivot Transfer Ability Level of Assist Minimal Assistance 1 Person Assistance Use of Upper Extremities Gait Assessment Gait Gait Assistance Required: Minimum Assistance Moderate Assistance Distance (Feet) 40 Able to Maintain Weight Bearing Status Yes During Gait Assistive Devices Assistive Device Gait Belt Small Based Quad Cane Orthotic/Prosthetic Devices or Brace: No Gait Deviations General Gait Pattern Antalgic Decreased Stride Length Decreased Feet Clearance Step-to Gait Factors Limiting Gait Function Factors Limiting Gait Function Decreased Activity Tolerance Decreased Sensation Decreased Strength Poor Balance Poor Safety Awareness Comments Gait Comments pt requiring min A with ambulation but requires mod A with turns and midway of ambulation. pt presents with a hemiplegic gait with decrerase R ankle DF/foot drop with inversion and hip ER, and has RUE flexor synergy. pt has (+) RLE clonus during ambulation PT-Balance Assessment Sitting Balance and Reactions Static Sitting Balance Ability Good Dynamic Sitting Balance Ability Fair Standing Balance and Reactions Static Standing Balance Ability Fair Dynamic Standing Balance Ability Poor Device Used quad cane M5 PT-IP Objective Assessments Start: 06/23/19 12:11 Freq: NEEDED Status: Active Protocol: Document 06/23/19 10:50 AB (Rec: 06/23/19 12:44 AB [id number]) Orientation Orientation/Cognition Level of Alertness Alert Language Function Ability Expressive Aphasia Safety Awareness Decreased Safety Awareness Gross Range of Motion Lower Extremity ROM Assessment Within Functional Limits Strength Lower Extremity Strength Assessment Right Impaired Comments Strength Comments R knee flexion: 3/5 R ankle DF: 1/5 Muscle Tone Muscle Tone WNL No Muscle Tone Location Right Upper Extremity Type of Tone Hypertonicity Flexor Severity of Tone Moderate M6 PT-IP Treatment Start: 06/23/19 12:11 Freq: NEEDED Status: Active Protocol: Document 06/23/19 10:50 AB (Rec: 06/23/19 12:44 AB [id number]) Physical Therapy Treatment Education Education Provided Safety M7 PT-IP Assessment and Plan Start: 06/23/19 12:11 Freq: NEEDED Status: Active Protocol: Document 06/23/19 10:50 AB (Rec: 06/23/19 12:44 AB [id number]) PT Summary Assessment and Plan Potential Rehabilitation Potential Good Status of Condition at Evaluation Stable Summary Impairments Pain ROM Strength Balance Coordination Sensation Tone Cognition Bed Mobility Transfers Gait Activity Tolerance Assessment Summary pt requiring min to mod A with ambulation and presents with decrease activity tolerance requiring increase assistance midway through ambulation. will continue to assess pt but at this time will need inpatient acute rehab to improve strength and ambulation. Goals Bed Mobility Goal Standby Assistance Transfer Goal Standby Assistance Cane Gait Goal Standby Assistance Cane Gait Distance 200 Other Goals up/down 3 steps with 1 rail SBA Days to Meet Goals 10 Frequency of Treatment Frequency Of Treatment Twice a Day Treatment Plan Physical Therapy Treatment Plan Bed Mobility Training Transfer Training Gait Training Therapeutic Exercise Balance Retraining Post Op Education Discharge Planning Hot or Cold Pack Neuromuscular Re-ed Coordination Retraining Manual Therapy Other Recommendations and Next Treatment ambulation, standing balance/ Focus tolerance Recommendations To Nursing Amount of Assist Needed 1 Person Assist Discharge Recommendations PT Discharge Recommendations Acute Rehab
[2019-06-23] MEDS: INSULIN ASPART 100 UNIT/ML INSULN PEN SUBCUT (12:48)
--- NOTE | 2019-06-23 15:50 | CM.DANOTE ---
DCP/Assessment: Reviewed chart. bruce is a 63yr old male admitted to [facility] with stroke like symptoms. PCP is Dr. Epstein. Primary payor is 1)[employer] 2)Med[employer]are. Met with patient and spouse/Diele at bedside explained CM/SW role. Spouse reports that patient had CVA in 2013 which left him with right sided deficit(s). Patient primarily non-verbal with language. Spouse reports that patient uses cane at baseline. Otherwise, spouse reports patient manages around the house fairly well. Spouse works and family help at home. Spouse also takes care of her elderly parent. Patient's daughter is primary caregiver when spouse not available. At this time PT/OT evaluations pending. Patient would benefit from ST evaluation as well. RN will request order from MD if she speaks with him this evening. If not will attempt to obtain ST evaluation order tomorrow 06-24-19. Notified patient and spouse that CM team will be following throughout hospitalization for any d/c planning needs that may arise. Spouse appreciative. P: Pending. Hopeful patient will be able to return home when medically stable. Therapy evaluations pending. СВЕТЛАНА Zhong Discharge Planning/Care Management Advanced directive,confirm from FACILITY Start: 06/22/19 19:31 Freq: Q24H Status: Complete Protocol: Document 06/22/19 19:31 JJY (Rec: 06/22/19 19:32 JJY [id number]) Advance Directive, confirm on record Time 19:30 Person contacted medical records, message left Copy received No Document 06/23/19 09:32 LAMBERTO (Rec: 06/23/19 09:32 LAMBERTO [id number]) Advance Directive, confirm on record Time 19:30 Person contacted medical records, message left Copy received Yes Advanced directive available on record Yes CM Discharge Assessment Start: 06/23/19 15:47 Freq: Status: Active Protocol: Document 06/23/19 15:48 KJS (Rec: 06/23/19 15:50 KJS [id number]) Discharge Planning Assessment Assigned Jewelry Appraiser СВЕТЛАНА Zhong Contact Information Felicity Colvin (spouse) [phone] Advance Directives? Yes Advance Directives on File Yes History Provided By Significant Other Medical Record Prior Living Arrangements House Household Members spouse Type of transporation used prior to Relies on Others admit Independent with ADL's No: Uses cane at baseline. Mostly non-verbal secondary to CVA in 2014 Is patient alert and oriented? Yes Needs Assistance With Meal [employer] Home Chores / Shopping Caregiver for Another No DME Already Rented / Owned Cane Comment D/C needs pending Whiteboard Updated in Patient Room with Yes name and ext. # of Jewelry Appraiser Review Status In Process Next Review Type Continued Stay Review
--- NOTE | 2019-06-23 16:01 | OT.IP.EVAL ---
Past Medical History (Last Updated 07/23/18 @ 15:38 by Aida Jackson) Type 2 diabetes mellitus (Chronic) Stenosis of left carotid artery (Chronic 12/22/13) Aphasia following cerebrovascular disease (Chronic 01/27/15) Hemiparesis affecting dominant side as late effect of cerebrovascular accident (Chronic 01/27/15) 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 (Chronic 09/01/15) Chronic atrial flutter (Chronic 09/01/15) Cerebrovascular accident (CVA) involving left middle cerebral artery territory (Chronic 09/01/15) Coronary artery disease involving grand traverse coronary artery of grand traverse heart without angina pectoris (Chronic 09/01/15) Essential hypertension (Chronic 09/01/15) Hyperlipidemia (Chronic 09/01/15) Chronic systolic congestive heart failure (Chronic 09/01/15) Antiphospholipid antibody syndrome (Chronic) CAD (coronary artery disease) (Chronic) Cardiac arrhythmia (Chronic) Diabetes mellitus (Chronic) History of stroke with residual deficit (Chronic) Hyperlipidemia (Chronic) Pacemaker (Chronic) Rheumatoid arthritis (Chronic) DVT (deep venous thrombosis) (Resolved) Myocardial infarction (Resolved) Systolic heart failure (Resolved) Surgical History (Last Updated 06/22/19 @ 19:08 by Vidya Yao RN) AICD (automatic cardioverter/defibrillator) present (Acute) History of angioplasty (Resolved) Presence of cardiac pacemaker (Resolved) Occupational Therapy Inpatient Evaluation/Re-Eval M1 PT/OT-IP Prior Functional Status Start: 06/23/19 15:33 Freq: NEEDED Status: Active Protocol: Document 06/23/19 15:34 [facility] (Rec: 06/23/19 16:01 [facility] [id number]) Medical Review Prior Functional Status Medical History Reviewed Yes Communication pt has aphasia and unable to verbalize answers to questions Mobility and Gait per spouse: pt is modified independent with transfers, ambulation using a quad cane; able to ambulate ~ 2-3 blocks Activities of Daily Living and IADL's Spouse provides some assistance with dressing mainly for tight pants, buttons, ankle foot orthosis, occasionally assist to get right arm into sleeve. Spouse states prior pt able to toilet and shower on his own. In addition pt independent to get in and out of the right side of the bed independently. Social History Household Members spouse Living Arrangements House Number of Stairs To Enter/Railing? 3 steps with bilateral rail Home Environment Walk in Shower Home Equipment Four Wheel Walker Quad Cane Manual Wheelchair Shower Seat without Backrest Hand Held Shower Grab Bars In Shower Employment Status Retired M2 OT-IP Current Condition Start: 06/23/19 15:33 Freq: Status: Active Protocol: Document 06/23/19 15:34 [facility] (Rec: 06/23/19 16:01 [facility] [id number]) Occupational Therapy Current Condition Current Condition Evaluation Date 06/23/19 Treatment Diagnosis CVA, weakness, decreased functional mobility and self - care Diagnosis Onset Date 06/22/19 Weight Bearing Status Weight Bearing Status Weight Bear as Tolerated M3 OT- IP Subjective and Pain Start: 06/23/19 15:33 Freq: Status: Active Protocol: Document 06/23/19 15:34 [facility] (Rec: 06/23/19 16:01 [facility] [id number]) OT- Subjective Occupational Therapy Visit Type Type Initial Evaluation Visit Start Time 10:59 Visit Stop Time 11:21 Total Visit Minutes 22 Occupational Therapy Visit Comments Patient Comments Pt able to nod in agreement when asked by OT and PT to get up for evaluation. Pt has aphasia. OT Pain Assessment Pain When Pain Assessed During Mobility Pain Present Pain Present Pain Reported M4 OT- IP ADL's Start: 06/23/19 15:33 Freq: Status: Active Protocol: Document 06/23/19 15:34 [facility] (Rec: 06/23/19 16:01 [facility] [id number]) OT [id number] Comments OT Self-Feeding Comments Pt able to bring water bottle to his mouth to drink from. OT ADL-Grooming Comments OT Grooming Comments No opportunity as pt wanting to get back to bed. OT ADL-Dressing General Eval Lower Body Dressing Ability Maximum Assistance Areas Needing Assistance Socks Comments OT Dressing Comments MAX A for socks at this time. OT ADL-Toileting Comments OT Toileting Comments Just use of urinal at this time per nursing notes. Pt not having to use the commode at this time. OT ADL-Bathing Comments OT Bathing Comments Pt per has a shower stool that he uses and grab bar to assist to help step into the walk in shower. Pt's states shower head low enough for him to use , but in the process on putting in a hand held shower spray for him. M5 OT- IP IADL's Start: 06/23/19 15:33 Freq: Status: Active Protocol: Document 06/23/19 15:34 [facility] (Rec: 06/23/19 16:01 [facility] [id number]) OT-Instrumental Activities of Daily Living Deficits IADL Deficits Identified Deficits Home Safety Awareness Home Safety Comments Pt's states gets around in the house on his own with quad cane. Money Management Money Management Caregiver Provides Assistance Meal Preparation Meal Preparation Caregiver Provides Assist Bracelet Maker Novelty Bracelet Maker Novelty Caregiver Provides Assist M6 OT- IP Functional Cognition Start: 06/23/19 15:33 Freq: Status: Active Protocol: Document 06/23/19 15:34 [facility] (Rec: 06/23/19 16:01 [facility] [id number]) Cognitive Factors Limiting Selfcare Function Cognitive Ability Level of Alertness Alert Confusional State Patient Orientation Name Attention Span Ability Capable of Focused Attention Ability to Follow Commands Able to Follow One Step Commands with Increased Time Able to Follow One Step Commands with Repetition Cognitive Comments Cognitive Assessment Comments Pt has expressive aphasia but able to follow one step commands given visual demonstration. Pt able to nod in agreement to questions asked at times. Pt's not present to ask if pt at prior level of cognition and understanding. Pt may benefit from [facility] eval and treatment. OT- Vision and Hearing OT- Hearing Assessment OT- Hearing Assessment WFL M7 OT- IP Mobility and Balance Start: 06/23/19 15:33 Freq: Status: Active Protocol: Document 06/23/19 15:34 [facility] (Rec: 06/23/19 16:01 [facility] [id number]) OT- Bed Mobility Assessment Rolling Type of Rolling Roll to Left Level of Assistance Standby Assistance Bedrails Supine to Sit Supine to Sit Assist Standby Assistance Bedrails Sit to Supine Sit to Supine Assist Standby Assistance Bedrails OT-Transfer Assessment Sit to and From Stand Sit to and from Stand Minimal Assistance 1 Person Assistance Transfers Transfer Ability Minimal Assistance Moderate Assistance 1 Person Assistance Technique Transfer Destination Bed Transfer Technique Stand Step Pivot Devices Transfer Assistive Devices Gait Belt Small Based Quad Cane Comments Mobility Comments Pt needing use of bed rail to help get up from the bed, per on the phone states pt indepedent and does not have railing at home to use. [place] to stand . [place] to MODA for walking with small base quad cane. Pt tends becomes more unstaedy as he tires. OT- Gait Assessment Gait Gait Assistance Required: Minimum Assistance Moderate Assistance Assistive Devices Assistive Device Gait Belt Small Based Quad Cane OT- Balance Assessment Sitting Balance and Reactions Static Sitting Balance Ability Good Dynamic Sitting Balance Ability Fair Standing Balance and Reactions Static Standing Balance Ability Poor M8 OT- IP Objective Assessments Start: 06/23/19 15:33 Freq: Status: Active Protocol: Document 06/23/19 15:34 [facility] (Rec: 06/23/19 16:01 [facility] [id number]) OT Gross Range of Motion Upper Extremity Range of Motion Assessment Right Impaired OT Strength Upper Extremity Strength Assessment Right Impaired OT-Muscle Tone Assessment Muscle Tone WNL No Muscle Tone Location Right Upper Extremity Type of Tone Hypertonicity Severity of Tone Moderate Jordan Grade Scale Grade 3 Comments Muscle Tone Comments Pt noted increase tone and flexor synergy with right UE during exertion. Pt's right arm tends to internally rotate , elbow flexed with hand supinated, wrist and fingers flexed. pt's states does not have a splint for RUE and at one point in time had a sling/brace for his right shoulder due to subluxation. OT Sensation Assessment Comments Summary Comments Pt's states pt seems to be able to sense sensation and feelings on right side more/ Prior she states that pt not aware of kidney stones for right side. M9 OT- IP Assessment and Plan Start: 06/23/19 15:33 Freq: Status: Active Protocol: Document 06/23/19 15:34 [facility] (Rec: 06/23/19 16:01 [facility] [id number]) OT Summary Assessment and Plan Potential Rehabilitation Potential Good Analytic Complexity at Evaluation Moderate Summary OT Impairments Pain Range of Motion Strength Balance Sensation Tone Functional Cognition Functional Mobility Self-Feeding Grooming Dressing Toileting Bathing Toilet Transfers Shower Transfers Progress Towards Goals Slow Progress due to Medical Issues Slow Progress due to Activity Tolerance Slow Progress due to Cognition Assessment Summary Pt mod complexity with main barriers of decreased balance, steps, and decreased activity tolerance and now needing assist for functional mobility and ADl's. Prior pt mostly independent for all needs except to nithin AFO, buttons, and assist for tight clothing as pt's right UE not functional and unable to assist with needs due to pt's tone, decreased AROM, and sensation. Pt was able to walk on his own with small based quad cane in the house and able to walk 2-3 blocks. Pt would benefit from inpt acute rehab versus skilled rehab as not at his baseline of independence and would benefit from rehab to work on safety with with mobility, and independence with ADL needs. Goals Self-Feeding Goal Standby Assistance Grooming Goal Standby Assistance Dressing Goal Minimal Assistance Toileting Goal Standby Assistance Bathing Goal Standby Assistance Toilet Transfer Goal Standby Assistance Shower Transfer Goal Standby Assistance Patient/Caregiver Education Goal Caregiver Independent Assisting Patient Days to Meet Goals 8 Frequency of Treatment Frequency Of Treatment Once a Day Treatment Plan OT Treatment Plan ADL Training Functional Cognition Training Functional Mobility Patient/Family Education Discharge Planning Other Treatment Recommendations and Next lower body dressing, toileting Treatment Focus Discharge Recommendations OT Discharge Recommendations SNF Rehab Acute Rehab
[2019-06-23] MEDS: LISINOPRIL 10 MG TABLET PO (17:06)
[2019-06-23] MEDS: SPIRONOLACTONE 25 MG TABLET 12.5 MG PO (17:06)
[2019-06-23] MEDS: TAMSULOSIN 0.4 MG CAPSULE PO (17:06)
--- NOTE | 2019-06-23 17:19 | PT.IPTN ---
Physical Therapy Treatment Note M2 PT-IP Current Condition Start: 06/23/19 12:11 Freq: NEEDED Status: Active Protocol: Document 06/23/19 10:50 AB (Rec: 06/23/19 12:44 AB [id number]) Physical Therapy Current Condition Current Condition Evaluation Date 06/23/19 Treatment Diagnosis CVA; difficulty in walking Onset Date 06/22/19 Precautions Other Precautions falls M3 PT-IP Subjective Start: 06/23/19 12:11 Freq: NEEDED Status: Active Protocol: Document 06/23/19 16:52 AW (Rec: 06/23/19 17:19 AW [id number]) Subjective Physical Therapy Visit Type Type Treatment Note Visit Start Time 16:20 Visit Stop Time 16:43 Total Visit Minutes 23 Number of ANALYST COMPETITIVE INTELLIGENCE Visits 0 Physical Therapy Visit Comments Patient Comments Pt resting with spouse visiting Patient Goals Pt is eager to return home Therapy Pain Assessment Pain Present Pain Present Denied Pain M4 PT-IP Mobility and Gait Start: 06/23/19 12:11 Freq: NEEDED Status: Active Protocol: Document 06/23/19 16:52 AW (Rec: 06/23/19 17:19 AW [id number]) PT-Bed Mobility Assessment Supine to Sit Supine to Sit Standby Assistance Scooting Scooting to Edge of Bed Standby Assistance PT-Transfer Assessment Sit to and From Stand Sit to and from Stand Contact Guard Assistance Use of Upper Extremities Equipment Transfer Assistive Device Gait Belt Small Based Quad Cane Transfers Transfer Destination Bed Chair Transfer Technique Stand Step Pivot Transfer Ability Level of Assist Contact Guard Assistance Use of Upper Extremities Comments Mobility Comments All bed mobility performed with SBA. Pt able to perform sit <> stand with CGA using gait belt and SBQC. Gait Assessment Gait Gait Assistance Required: Contact Guard Assist Distance (Feet) 75 Assistive Devices Assistive Device Gait Belt Small Based Quad Cane Orthotic/Prosthetic Devices or Brace: Yes Gait Deviations General Gait Pattern Antalgic Decreased Stride Length Step-to Gait Factors Limiting Gait Function Factors Limiting Gait Function Abnormal Tonal Influences Decreased Activity Tolerance Pain Comments Gait Comments Pt's spouse brought his shoes with integrated AFO for DF assist. Pt ambulated ~75 feet without need for increased assistance. Pt was able to ambulate, turn and transfer to w/c with CGA using brace and SBQC. Stair Climbing Assessment Evaluation Level of Assist On Stairs Contact Guard Assistance Devices Stair Climbing Assistive Devices Left Railing Technique/Endurance Stair Climbing Direction Ascend and Descend Stair Climbing Technique Step to Step Number of Steps Climbed 3 Stair Climbing Set # Repetitions (reps) 2 Comments Stair Climbing Comments Pt able to ambulate 10 feet from w/c to stairs with SBQC, transfer to stairs, and ascend /descend twice using L handrail with CGA. Pt used step-to pattern with ability to clear R foot when cued verbally. Pt requires attention to R foot clearance on stairs at all times. M5 PT-IP Objective Assessments Start: 06/23/19 12:11 Freq: NEEDED Status: Active Protocol: Document 06/23/19 10:50 AB (Rec: 06/23/19 12:44 AB [id number]) Orientation Orientation/Cognition Level of Alertness Alert Language Function Ability Expressive Aphasia Safety Awareness Decreased Safety Awareness Gross Range of Motion Lower Extremity ROM Assessment Within Functional Limits Strength Lower Extremity Strength Assessment Right Impaired Comments Strength Comments R knee flexion: 3/5 R ankle DF: 1/5 Muscle Tone Muscle Tone WNL No Muscle Tone Location Right Upper Extremity Type of Tone Hypertonicity Flexor Severity of Tone Moderate M6 PT-IP Treatment Start: 06/23/19 12:11 Freq: NEEDED Status: Active Protocol: Document 06/23/19 16:52 AW (Rec: 06/23/19 17:19 AW [id number]) Physical Therapy Treatment Education Education Provided Safety M7 PT-IP Assessment and Plan Start: 06/23/19 12:11 Freq: NEEDED Status: Active Protocol: Document 06/23/19 16:52 AW (Rec: 06/23/19 17:19 AW [id number]) PT Summary Assessment and Plan Potential Rehabilitation Potential Good Status of Condition at Evaluation Stable Summary Impairments Pain ROM Strength Balance Coordination Sensation Tone Cognition Bed Mobility Transfers Gait Activity Tolerance Assessment Summary Pt requiring CGA with ambulation and stairs. 75 feet ambulation represents a decline in typical activity tolerance. Spouse believes she and her daughter in law would be able to assist pt at home, but that he has room to improve in strength and activity tolerance. Will continue to evaluate, but current PT recommnedation is for SNF rehab vs home with 24/ assist and outpatient PT. Goals Bed Mobility Goal Standby Assistance Transfer Goal Standby Assistance Cane Gait Goal Standby Assistance Cane Gait Distance 200 Other Goals up/down 3 steps with 1 rail SBA Days to Meet Goals 8 Frequency of Treatment Frequency Of Treatment Twice a Day Treatment Plan Physical Therapy Treatment Plan Bed Mobility Training Transfer Training Gait Training Therapeutic Exercise Balance Retraining Post Op Education Discharge Planning Hot or Cold Pack Neuromuscular Re-ed Coordination Retraining Manual Therapy Other Recommendations and Next Treatment ambulation, standing balance/ Focus tolerance Recommendations To Nursing Amount of Assist Needed 1 Person Assist Discharge Recommendations PT Discharge Recommendations Home with 27/05 Assist SNF Rehab Outpatient PT
--- NOTE | 2019-06-23 18:53 | PC.NURSE ---
1850 - Pt resting in bed. Worked with therapy this afternoon. Sat up in chair for meal. No swallowing difficulties noted, However pt is requesting a Speech/Swallow eval. She states that the pt use to say one or two words, but recently has stopped doing so. Also, she states that he has intermittent swallowing difficulties. Monitor. Call light in reach. Bed alarm on.
[2019-06-23] MEDS: ATORVASTATIN 20 MG TABLET PO (21:02)
[2019-06-24] VITALS (10 sets, daily range): BP systolic 96–116; BP diastolic 52–70; PULSE 61–70; RESP 16–19; TEMP 36.4–37; O2SAT 95–99
[2019-06-24 04:57] LABS: Add Manual Diff / Slide Review NO; Basophils Absolute Auto 0 /uL (0-100); Basophils Percent Auto 0.5 % (0-2); Eosinophils Absolute Auto 200 /uL (0-450); Eosinophils Percent Auto 4.4 % (2-4); Hematocrit 34.7 % (41-53); Hemoglobin 12.3 g/dL (13.5-17.5); Lymphocytes Absolute Auto 900 /uL (1100-4500); Lymphocytes Percent Auto 18.5 % (25-40); Mean Corpuscular HGB Conc 35.4 % (30-36); Mean Corpuscular Hemoglobin 31.8 PG (26-34); Mean Corpuscular Volume 89.9 fL (80-100); Monocytes Absolute Auto 300 /uL (0-900); Monocytes Percent Auto 5.9 % (3-14); Neutrophils Absolute Auto 3300 /uL (1500-7000); Neutrophils Percent Auto 70.7 % (50-75); Platelet Count 169 X10^3/uL (150-400); Red Blood Cell Count 3.86 X10^6/uL (4.5-5.9); Red Cell Distribution Width 13.6 % (11.6-14.8); White Blood Cell Count 4.6 X10^3/uL (4.5-11.0)
[2019-06-24 05:07] LABS: Alanine Aminotransferase 19 IU/L (21-72); Albumin 3.2 g/dL (3.5-5.0); Albumin Globulin Ratio 0.8 (1.0-2.8); Alkaline Phosphatase 67 U/L (38-126); Aspartate Aminotransferase 33 IU/L (17-59); Bilirubin Total 0.5 mg/dL (0.2-1.3); Blood Urea Nitrogen 10 mg/dL (9-20); Calcium 8.7 mg/dL (8.4-10.2); Carbon Dioxide 28 mmol/L (22-32); Chloride 100 mmol/L (98-107); Estimated Glomerular Filt Rate > 60.0 mL/min (>60); Globulin 3.8 g/dL (1.7-4.1); Glucose 110 mg/dL (80-110); HEMOLYSIS < 15 (0-50); Potassium 3.8 mmol/L (3.4-5.1); Sodium 135 mmol/L (137-145)
--- NOTE | 2019-06-24 07:28 | DI.CT.S_ITS ---
PROCEDURE: CT HEAD/BRAIN WO CON INDICATIONS: Possible bleed TECHNIQUE: Noncontrast 4.5 mm thick angled axial sections acquired from the foramen magnum to the vertex, with coronal and sagittal reformats. For radiation dose reduction, the following was used: automated exposure control, adjustment of mA and/or kV according to patient size. COMPARISON: [facility], CT, BRAIN W/O CONTRAST, 01/21/2015, 20:20. [facility], CT, CT HEAD/BRAIN WO CON, 06/22/2019, 9:36. [facility], CT, CT HEAD/BRAIN WO CON, 06/22/2019, 13:34. FINDINGS: Image quality: Excellent. CSF spaces: Basal cisterns are patent. No extra-axial fluid collections. The ventricles are symmetric in size and shape. Brain: No intracranial bleeds or masses. Redemonstration of left frontoparietal temporal lobe MCA territory infarct/encephalomalacia. Previously described 9 mm focus of mild relative hyperattenuation is unchanged, or slightly less conspicuous. Elsewhere, no evidence to suggest acute intracranial hemorrhage. There is cerebral volume loss for age, with resultant ventricular and sulcal prominence. There are periventricular and deep white matter chronic small vessel ischemic changes. There is intracranial internal carotid artery atherosclerosis. Skull and face: Calvarium and visualized facial bones appear intact, without suspicious lesions. Sinuses: Visualized sinuses and mastoids are clear. IMPRESSION: Overall, grossly stable examination. No specific evidence of acute intracranial hemorrhage identified. Redemonstration of large left MCA territory encephalomalacia Dictated by: Michael Gu M.D. on 06/24/2019 at 8:38 Approved by: Michael Gu M.D. on 06/24/2019 at 8:47
[2019-06-24] MEDS: CITALOPRAM 20 MG TABLET 30 MG PO (09:43)
[2019-06-24] MEDS: INSULIN GLARGINE 100 UNIT/ML 3ML PEN 15 UNIT SUBCUT (09:44)
[2019-06-24] MEDS: CARVEDILOL 6.25 MG TABLET PO ×2 (09:44→20:43)
[2019-06-24] MEDS: SODIUM CHLORIDE 0.9% FLUSH 10 ML IV ×2 (09:47→20:44)
--- NOTE | 2019-06-24 10:30 | PT.IPTN ---
Current Diagnoses Nontraumatic subarachnoid hemorrhage, unspecified (06/22/19) Physical Therapy Treatment Note M2 PT-IP Current Condition Start: 06/23/19 12:11 Freq: NEEDED Status: Active Protocol: Document 06/23/19 10:50 AB (Rec: 06/23/19 12:44 AB [id number]) Physical Therapy Current Condition Current Condition Evaluation Date 06/23/19 Treatment Diagnosis CVA; difficulty in walking Onset Date 06/22/19 Precautions Other Precautions falls M3 PT-IP Subjective Start: 06/23/19 12:11 Freq: NEEDED Status: Active Protocol: Document 06/24/19 10:30 GGD (Rec: 06/24/19 11:28 GGD [id number]) Subjective Physical Therapy Visit Type Type Treatment Note Visit Start Time 10:05 Visit Stop Time 10:33 Total Visit Minutes 28 Number of DIGITAL MARKETING PROGRAM MANAGER Visits 1 Physical Therapy Visit Comments Patient Comments Pt states he needs to use the bathroom. M4 PT-IP Mobility and Gait Start: 06/23/19 12:11 Freq: NEEDED Status: Active Protocol: Document 06/24/19 10:30 GGD (Rec: 06/24/19 11:28 GGD [id number]) PT-Bed Mobility Assessment Sit to Supine Sit to Supine Standby Assistance Contact Guard Assistance Scooting Scooting to Edge of Bed Standby Assistance PT-Transfer Assessment Sit to and From Stand Sit to and from Stand Standby Assistance Use of Upper Extremities Equipment Transfer Assistive Device Gait Belt Small Based Quad Cane Transfers Transfer Destination Bed Toilet Transfer Ability Level of Assist Standby Assistance Contact Guard Assistance Gait Assessment Gait Gait Assistance Required: Standby Assistance Contact Guard Assist Distance (Feet) 160 Assistive Devices Assistive Device Gait Belt Small Based Quad Cane Orthotic/Prosthetic Devices or Brace: Yes Gait Deviations General Gait Pattern Antalgic Decreased Stride Length Step-to Gait Factors Limiting Gait Function Factors Limiting Gait Function Abnormal Tonal Influences Decreased Activity Tolerance Pain M5 PT-IP Objective Assessments Start: 06/23/19 12:11 Freq: NEEDED Status: Active Protocol: Document 06/23/19 10:50 AB (Rec: 06/23/19 12:44 AB [id number]) Orientation Orientation/Cognition Level of Alertness Alert Language Function Ability Expressive Aphasia Safety Awareness Decreased Safety Awareness Gross Range of Motion Lower Extremity ROM Assessment Within Functional Limits Strength Lower Extremity Strength Assessment Right Impaired Comments Strength Comments R knee flexion: 3/5 R ankle DF: 1/5 Muscle Tone Muscle Tone WNL No Muscle Tone Location Right Upper Extremity Type of Tone Hypertonicity Flexor Severity of Tone Moderate M6 PT-IP Treatment Start: 06/23/19 12:11 Freq: NEEDED Status: Active Protocol: Document 06/23/19 16:52 AW (Rec: 06/23/19 17:19 AW [id number]) Physical Therapy Treatment Education Education Provided Safety M7 PT-IP Assessment and Plan Start: 06/23/19 12:11 Freq: NEEDED Status: Active Protocol: Document 06/24/19 10:30 GGD (Rec: 06/24/19 11:28 GGD [id number]) PT Summary Assessment and Plan Summary Assessment Summary Pt improving with mobility. He was safe with transfers and able to progress gait. He need CGA for sit to supine. He as safe for sit to stand from low toilet. Treatment Plan Physical Therapy Treatment Plan Bed Mobility Training Transfer Training Gait Training Therapeutic Exercise Balance Retraining Post Op Education Discharge Planning Hot or Cold Pack Neuromuscular Re-ed Coordination Retraining Manual Therapy Recommendations To Nursing Amount of Assist Needed 1 Person Assist Discharge Recommendations PT Discharge Recommendations Home with Assistance Outpatient PT
[2019-06-24] MEDS: INSULIN ASPART 100 UNIT/ML INSULN PEN SUBCUT ×2 (12:31→16:57)
--- NOTE | 2019-06-24 16:03 | PC.NURSE ---
Addendum entered by Vidya Yao R.N. 06/24/19 19:53: 1800 - Pt requesting to return to bed following meal. Encourage to ambulate in bravo. Pt agreeable. Ambulated with gaitbelt, quad cane and leg brace in place. CGA. Return to bed. Positioned for comfort. Call light in reach. Original Note: 1545 - Pt up ambulating with Therapy. Therapy reports pt is nearly back to baseline. Dr. Epstein called in to check on patient status. After speaking with therapist, Dr. Epstein requested that nursing discuss with pt and about discharge this evening vs tomorrow a.m. or desire for continued support in a SNF setting. Pt and report feeling ready for discharge to home, but that they need to have a schedule and resources already in place before discharge. Pt states that she needs to educated caregiver to treatment plan and have out patient therapy referral in place prior to discharge. Both are agreeable that tomorrow would be more appropriate time for discharge.
--- NOTE | 2019-06-24 16:06 | PT.IPTN ---
Current Diagnoses Nontraumatic subarachnoid hemorrhage, unspecified (06/22/19) Physical Therapy Treatment Note M2 PT-IP Current Condition Start: 06/23/19 12:11 Freq: NEEDED Status: Active Protocol: Document 06/23/19 10:50 AB (Rec: 06/23/19 12:44 AB [id number]) Physical Therapy Current Condition Current Condition Evaluation Date 06/23/19 Treatment Diagnosis CVA; difficulty in walking Onset Date 06/22/19 Precautions Other Precautions falls M3 PT-IP Subjective Start: 06/23/19 12:11 Freq: NEEDED Status: Active Protocol: Document 06/24/19 16:00 GGD (Rec: 06/24/19 16:06 GGD [id number]) Subjective Physical Therapy Visit Type Type Treatment Note Visit Start Time 15:32 Visit Stop Time 16:00 Total Visit Minutes 28 Number of HOSPITALITY JOB TITLES Visits 2 Physical Therapy Visit Comments Patient Comments Pt willing to work with therapy. M4 PT-IP Mobility and Gait Start: 06/23/19 12:11 Freq: NEEDED Status: Active Protocol: Document 06/24/19 16:00 GGD (Rec: 06/24/19 16:06 GGD [id number]) PT-Bed Mobility Assessment Supine to Sit Supine to Sit Standby Assistance Sit to Supine Sit to Supine Standby Assistance Scooting Scooting to Edge of Bed Standby Assistance PT-Transfer Assessment Sit to and From Stand Sit to and from Stand Standby Assistance Use of Upper Extremities Equipment Transfer Assistive Device Gait Belt Small Based Quad Cane Transfers Transfer Destination Bed Transfer Ability Level of Assist Standby Assistance Gait Assessment Gait Gait Assistance Required: Standby Assistance Contact Guard Assist Distance (Feet) 160 Assistive Devices Assistive Device Gait Belt Small Based Quad Cane Orthotic/Prosthetic Devices or Brace: Yes Gait Deviations General Gait Pattern Antalgic Decreased Stride Length Step-to Gait Factors Limiting Gait Function Factors Limiting Gait Function Abnormal Tonal Influences Decreased Activity Tolerance Pain Comments Gait Comments Ambulated without AFO to simulate ambulation in home. M5 PT-IP Objective Assessments Start: 06/23/19 12:11 Freq: NEEDED Status: Active Protocol: Document 06/23/19 10:50 AB (Rec: 06/23/19 12:44 AB [id number]) Orientation Orientation/Cognition Level of Alertness Alert Language Function Ability Expressive Aphasia Safety Awareness Decreased Safety Awareness Gross Range of Motion Lower Extremity ROM Assessment Within Functional Limits Strength Lower Extremity Strength Assessment Right Impaired Comments Strength Comments R knee flexion: 3/5 R ankle DF: 1/5 Muscle Tone Muscle Tone WNL No Muscle Tone Location Right Upper Extremity Type of Tone Hypertonicity Flexor Severity of Tone Moderate M6 PT-IP Treatment Start: 06/23/19 12:11 Freq: NEEDED Status: Active Protocol: Document 06/24/19 16:00 GGD (Rec: 06/24/19 16:06 GGD [id number]) Physical Therapy Treatment Education Education Provided Safety Other Treatments Other Treatment Performed standing balance NBOS, EO and EC M7 PT-IP Assessment and Plan Start: 06/23/19 12:11 Freq: NEEDED Status: Active Protocol: Document 06/24/19 16:00 GGD (Rec: 06/24/19 16:06 GGD [id number]) PT Summary Assessment and Plan Summary Assessment Summary Pt was safe with gait. He had no LOB or fatigue with gait. He was able to safely clear his right foot. He was safe with standing balance with NBOS. Pt safe for home D/C when medically stable. Frequency of Treatment Frequency Of Treatment Twice a Day Treatment Plan Physical Therapy Treatment Plan Bed Mobility Training Transfer Training Gait Training Therapeutic Exercise Balance Retraining Post Op Education Discharge Planning Hot or Cold Pack Neuromuscular Re-ed Coordination Retraining Manual Therapy Recommendations To Nursing Amount of Assist Needed 1 Person Assist Discharge Recommendations PT Discharge Recommendations Home with Assistance Outpatient PT
--- NOTE | 2019-06-24 16:20 | ST.IPIE ---
Care Team Visit Care Team Role Provider Type Felicity Calvo DO Emergency Provider Physician Specialty: Emergency Medicine Address: [address] [place] [address], [id number] Email: [email or web address] Delfino Epstein MD Admit Provider Physician Attending Provider Family Provider Primary Care Provider Specialty: Family Practice Address: [address] [place] [address], [address] Email: [email or web address] Current Diagnoses Nontraumatic subarachnoid hemorrhage, unspecified (06/22/19) Past Medical History (Last Updated 07/23/18 @ 15:38 by Aida Jackson) Type 2 diabetes mellitus (Chronic Medical) Stenosis of left carotid artery (Chronic Medical 12/22/13) Aphasia following cerebrovascular disease (Chronic Medical 01/27/15) Hemiparesis affecting dominant side as late effect of cerebrovascular accident (Chronic Medical 01/27/15) 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 (Chronic Medical 09/01/15) Chronic atrial flutter (Chronic Medical 09/01/15) Cerebrovascular accident (CVA) involving left middle cerebral artery territory (Chronic Medical 09/01/15) Coronary artery disease involving torres martinez coronary artery of torres martinez heart without angina pectoris (Chronic Medical 09/01/15) Essential hypertension (Chronic Medical 09/01/15) Hyperlipidemia (Chronic Medical 09/01/15) Chronic systolic congestive heart failure (Chronic Medical 09/01/15) Antiphospholipid antibody syndrome (Chronic Medical) CAD (coronary artery disease) (Chronic Medical) Cardiac arrhythmia (Chronic Medical) Diabetes mellitus (Chronic Medical) History of stroke with residual deficit (Chronic Medical) Right-sided neurological deficits Hyperlipidemia (Chronic Medical) Pacemaker (Chronic Medical) Rheumatoid arthritis (Chronic Medical) DVT (deep venous thrombosis) (Resolved Medical) Myocardial infarction (Resolved Medical) Systolic heart failure (Resolved Medical) ST IP Initial Evaulation Report [employer] Clinical Swallow Evaluation Start: 06/24/19 13:15 Freq: Status: Active Protocol: Document 06/24/19 13:15 MILTON (Rec: 06/24/19 13:25 MILTON [id number]) Clinical Swallow Evaluation Session Time Visit Start Time 12:40 Visit Stop Time 13:15 Total Visit Minutes [address] Epstein Reason for Referral Swallow assessment secondary to CVA Setting Assessment Location Acute Care Visit Type Note Type Initial Evaluation Patient Information History This 63-yr-old male is familiar to this [employer] from previous outpatient Speech Therapy. He was admitted to hospital after episodes of increasing weakness and falls. CT head revealed Left-sided encephalomalacia consistent with a prior left MCA territory infarct redemonstrated; Small focus of relative hyperattenuation in this region appear slightly increased in size compared to the recent comparison study 4 hours prior. Although this may be due to differences in slice acquisition, a small region of subarachnoid hemorrhage cannot be excluded due to history of recent falls . Pt was unable to participate in MRI d/t pacemaker. At baseline, the pt has been non-verbal with right-side hemiplesia secondary to hx of CVA, communicating via gestures facial expressions and answering yes/no questions with head nod/shake. Subjective Observations The pt was awake, sitting up in bed eating lunch. He recognized [facility], smiled, and extended hand in greeting. He was consuming soft meat ( mealoaf?) and mashed potatoes without wearing dentures. He was agreeable and able to put dentures in for assessment of more complex textures. He self -applied denture adhesive with minimal setup assistance. Evaluation Liquids Trialed Thin Solids Trialed Puree Dysphagia Mechanical Mechanical Soft Regular Administration Type Cup Single Sip Cup Consecutive Sips Straw Self-Feeding Oral Impairment WNL Oral Strategies Upright at 90 degrees Oral Phase Comments Oral Peripheral Exam: Symmetrical features. Mildly reduced lingual and buccal strength and coordination. Lingual, labial and buccal ROM is WNL. Soft palate elevates upon soft phonation. The pt is edentulous with full upper and lower dentures that fit well with adhesive. Excellent hyolaryngeal elevation and anterior excursion observed via palpation. Oral Phase: WNL. Oral containment and bolus prep appear normal. A/p propulsion and swallow trigger are timely . Pt performs lingual sweep easily with no abnormal oral residue observed. Mastication without dentures mildly slower than with dentures; both are timely. Pharyngeal Impairment WNL Pharyngeal Strategies Sitting Upright (90 deg) Pharyngeal Phase Comments No overt s/sx of aspiration were observed with all trials. The pt tended to consume large bites at a moderately fast rate of intake. However, the oral cavity was cleared between all bites. No evidence of pharyngeal residue was observed. Findings Dysphagia Type No dysphagia evident Impressions Swallow function appears to be WNL. The pt self-feeds with occasional benefit from setup assistance. He communicated a preference of soft foods. Recommend regular texture diet order to allow the pt freedom to make his own choices. Communication: Although the pt is largely non-verbal, his ability to communicate using gestures, facial expressions, etc., appears to be meeting his needs. He communicated that he was able to have his wants/needs understood and met . The pt appears to be at baseline for swallow function and communication skills. No ongoing Speech Pathology intervention warranted at this time. Recommend Care Team communicates via yes/no questions whenever possible. Diet Recommendations Liquids Order Thin Diet Order Regular Medication Recommendations As Tolerated Aspiration Precautions Recommended Precautions Upright at 90 Degrees Small Bites/Sips Treatment Plan Placement Recommendations after Home Discharge Appropriate for Therapy No: Pt is at baseline with swallow and communication
[2019-06-24] MEDS: LISINOPRIL 10 MG TABLET PO (16:51)
[2019-06-24] MEDS: TAMSULOSIN 0.4 MG CAPSULE PO (16:51)
[2019-06-24] MEDS: SPIRONOLACTONE 25 MG TABLET 12.5 MG PO (16:53)
--- NOTE | 2019-06-24 16:58 | OT.IP.TRT ---
Current Diagnoses Nontraumatic subarachnoid hemorrhage, unspecified (06/22/19) Occupational Therapy Treatment Note M2 OT-IP Current Condition Start: 06/23/19 15:33 Freq: Status: Active Protocol: Document 06/23/19 15:34 CCC (Rec: 06/23/19 16:01 [facility] [id number]) Occupational Therapy Current Condition Current Condition Evaluation Date 06/23/19 Treatment Diagnosis CVA, weakness, decreased functional mobility and self - care Diagnosis Onset Date 06/22/19 Weight Bearing Status Weight Bearing Status Weight Bear as Tolerated M3 OT- IP Subjective and Pain Start: 06/23/19 15:33 Freq: Status: Active Protocol: Document 06/24/19 16:57 PJM (Rec: 06/24/19 16:58 PJM [id number]) OT- Subjective Occupational Therapy Visit Type Type Administrative Note Notes Attempted to see pt, but pt with P.T. and no time in schedule to attempt again today. Will attempt again tomorrow when family is present.
[2019-06-24] MEDS: ATORVASTATIN 20 MG TABLET PO (20:43)
[2019-06-25] VITALS (7 sets, daily range): BP systolic 95–110; BP diastolic 53–69; PULSE 64–83; RESP 12–16; TEMP 36.5–36.9; O2SAT 95–100
--- NOTE | 2019-06-25 08:11 | PM.DS.1 ---
History of Present Illness Chief complaint: fell last night Narrative: 53-year-old male with coronary artery disease and cerebrovascular disease diabetes anti phospholipid antibody syndrome with atrial fibrillation. Patient has a history of right-sided deficits and aphasia from previous cerebrovascular accident. His has noticed over the past 2-3 days he has had increasing difficulty with weakness. She says it stems to a fall in the shower. He has had 3 falls since then. He normally walks with a cane and a brace and able to mobilize fairly well. He does not typically fall. Over the last 24 hours he has had increasing weakness of the left leg and now unable to bear weight and was brought to the emergency department. He is not able to provide a history because of aphasia. He does recognize me. Does say a few words and there is some comprehension. His states that he has been in his usual state of health. He is tired and sleeps a lot. They have not noticed any fevers or chills. Other than the difficulty with the left leg they have not noticed further weakness on the right side. Difficulty with bowel movements urination shortness of breath coughing fevers or chills. Discharge Providers Date of admission: 06/22/19 16:40 Discharge Date: 06/25/19 Primary care physician: Delfino Epstein MD Consults: 06/23/19 07:53 Consult to Occupational Therapy Evaluate & Treat Comment: Physician Instructions: Evaluate and treat Consult to Physical Therapy Evaluate & Treat Comment: Physician Instructions: Evaluate and Treat 06/24/19 08:06 Consult to Speech Therapy Evaluate & Treat Comment: Physician Instructions: Evaluate and treat Discharge provider: Delfino Epstein MD Summary Discharge Diagnosis: Fall with left leg weakness inability to ambulate concerning for cerebral hemorrhage which was ruled out. Cerebrovascular disease with right side spastic hemiparesis and aphasia Insulin-dependent diabetes Carotid artery disease Cerebral vascular disease Coronary artery disease status post myocardial infarction Chronic systolic congestive heart failure without acute exacerbation with implantable pacemaker and defibrillator Rheumatoid arthritis Hospital Course: Patient was admitted to the hospital after 3 falls at home. Patient was not able to transfer move out of bed. Patient has a history of a cerebrovascular disease with right-sided hemiparesis and aphasia. The injury was on his left side. CT scan done in the emergency room room revealed a possible cerebral hemorrhage. Patient was admitted to the hospital for further evaluation workup for this. His blood thinners were stopped. Patient was placed on insulin sliding scale. Blood pressure cholesterol coverage. Patient had further workup and evaluation with a repeat CT scan which showed stable. Size of suspicious lesion. And concern for cerebral hemorrhage was ruled out. During the hospital stay the patient worked with physical therapy. Had gradual improvement of the left leg weakness. We have tried significant help with transfers ambulating. Patient has been living home independently with his and caregiver. She was unable to support transfer him. But with the use of physical therapy. Patient has been able to be more mobilized. Time of discharge he was eating. He is ambulating with assistance in transferring with assistance. After discussion with physical therapy occupational therapy patient will be discharged back home. With outpatient therapy. He will be returned back to his regular medications. Exam Vital Signs (past 8 hours): - 06/25/19 00:38 06/25/19 00:51 06/25/19 04:10 Temperature 98.0 F 98.0 F Pulse Rate 68 71 Respiratory Rate 16 16 Blood Pressure 96/53 L 108/67 Pulse Oximetry 98 95 100 Oxygen Delivery Method Room Air Oxygen Flow Rate 0 Narrative Exam Narrative: Gen.: Alert a phasic HEENT: Pupils equal round and reactive or mucosa is moist Cardio: Regular rate and rhythm with systolic murmur present Respiratory: Lungs are clear to auscultation no wheezes or crackles normal respiratory effort. Abdomen: Soft nontender no rebound or guarding no liver spleen enlargement no appreciable hernias Extremities: Hemiparesis on right side. Pain over left knee Objective Labs Result Diagrams: 06/24/19 04:35 06/24/19 04:35 Discharge Plan Discharge Plan Discharge Problem: Weakness Patient Disposition: Home Discharge comment: Home follow up in [address] Epstein Discharge Med Rec/Prescriptions Prescriptions: Continued Disabled Parking Permit .ROUTE .MEDSUPPLY Qty: 1 RF: 0 methotrexate sodium 2.5 mg tablet 7.5 mg PO QWEEK Qty: 12 RF: 11 insulin aspart U-100 [Novolog U-100 Insulin aspart] 100 unit/mL solution See Rx Instructions SUBCUT ACHS Qty: 10 RF: 11 pen needle, diabetic [Comfort EZ Pen [place]] 32 gauge x 3/16 needle .ROUTE .MEDSUPPLY Qty: 100 RF: 3 dabigatran etexilate [Pradaxa] 150 mg capsule 150 mg PO BID Qty: 60 RF: 11 carvedilol [Coreg] 6.25 mg tablet 6.25 mg PO BID Qty: 180 RF: 2 metformin [Glucophage] 1,000 mg tablet 1,000 mg PO BIDCC Qty: 60 RF: 11 etanercept 50 mg/mL (0.98 mL) pen injector 50 mg SUBCUT QWEEK Qty: 3.92 RF: 11 spironolactone 25 mg tablet 12.5 mg PO QPM RF: 0 tamsulosin 0.4 mg capsule 0.4 mg PO QPM RF: 0 atorvastatin [Lipitor] 20 mg tablet 20 mg PO BEDTIME RF: 0 citalopram 20 mg tablet 30 mg PO DAILY RF: 0 lisinopril 10 mg tablet 10 mg PO QPM RF: 0 folic acid 1 mg tablet 1 mg PO DAILY RF: 0 vitamin H-ndhtemaomqvo-msrrcyj 1 tab PO DAILY RF: 0 Basaglar KwikPen U-100 Insulin 100 unit/mL (3 mL) insulin pen 18 unit SUBCUT DAILY PRN (Reason: blood sugar control) RF: 0 Follow up/Referrals: Delfino Epstein MD [Primary Care Provider] - Visit Report/Discharge Packet Visit Report Forms: Stroke Signs & Symptoms Discharge Data Primary Care Provider: Delfino Epstein Attending Provider: Delfino Epstein Admit Date/Time: 06/22/19 16:40 Quality VTE Deep Vein Thrombosis/Pulmonary Embolism Present on Admission: No
[2019-06-25] MEDS: CARVEDILOL 6.25 MG TABLET PO (08:18)
[2019-06-25] MEDS: CITALOPRAM 20 MG TABLET 30 MG PO (08:18)
[2019-06-25] MEDS: SODIUM CHLORIDE 0.9% FLUSH 10 ML IV (08:19)
[2019-06-25] MEDS: INSULIN GLARGINE 100 UNIT/ML 3ML PEN 15 UNIT SUBCUT (08:20)
--- NOTE | 2019-06-25 11:38 | CM.DPNOTE ---
Addendum entered by Teena Guzman, [employer] 06/25/19 13:00: Now hearing from RN and OT that pt is not at his functional baseline for ADLs and spouse has reported pt has been IADLs up until this hospitalization. Pt will require assist with bathing and toileting, he requires significant cueing per staff to complete ADLs. Dr Epstein mentions spouse and cg available to assist at home. Left detailed msg for spouse, she works and may not be able to return this [employer]'s call. VICKI Rowe explains spouse will be here at approx. 3 to take pt home. This [employer] wonders whether spouse Diele has been updated on pt's current needs or been present for a therapy session? Following closely. Home Health Aide may be helpful w/bathing needs if pt qualifies and/or spouse wants HH. CORTEZ Original Note: DC Note: Reviewed chart. Dr Epstein has placed order to DC pt home, therapies have assessed and pt has been cleared for return home w/outpt therapy, no HH needed , supportive spouse and family will transport via pov. P: DC back home w/supportive family outpt PT recommended via family pov, no SW needs identified. CORTEZ
--- NOTE | 2019-06-25 12:32 | OT.IP.TRT ---
Current Diagnoses Nontraumatic subarachnoid hemorrhage, unspecified (06/22/19) Occupational Therapy Treatment Note M2 OT-IP Current Condition Start: 06/23/19 15:33 Freq: Status: Active Protocol: Document 06/23/19 15:34 [facility] (Rec: 06/23/19 16:01 [facility] [id number]) Occupational Therapy Current Condition Current Condition Evaluation Date 06/23/19 Treatment Diagnosis CVA, weakness, decreased functional mobility and self - care Diagnosis Onset Date 06/22/19 Weight Bearing Status Weight Bearing Status Weight Bear as Tolerated M3 OT- IP Subjective and Pain Start: 06/23/19 15:33 Freq: Status: Active Protocol: Document 06/25/19 12:06 [facility] (Rec: 06/25/19 12:32 [facility] [id number]) OT- Subjective Occupational Therapy Visit Type Type Treatment Note Visit Start Time 11:05 Visit Stop Time 11:51 Total Visit Minutes 46 Occupational Therapy Visit Comments Patient Comments Pt nodding in agreement to do shower with OT before going home and also to get dressed. OT Pain Assessment Pain When Pain Assessed At Rest Pain Present Pain Present Denied Pain M4 OT- IP ADL's Start: 06/23/19 15:33 Freq: Status: Active Protocol: Document 06/25/19 12:06 [facility] (Rec: 06/25/19 12:32 [facility] [id number]) OT ADL-Grooming General Evaluation Grooming Ability Standby Assistance Areas Needing Assistance Retrieving/Set-up of Grooming Items Comments OT Grooming Comments Pt able to wash his face and brush his hair after set-up. OT ADL-Dressing General Eval Upper Body Dressing Ability Moderate Assistance Lower Body Dressing Ability Maximum Assistance Areas Needing Assistance Button-Up Shirt/Blouse Socks Shoes Orthosis/Prosthesis Comments OT Dressing Comments MODA to help pt thread right arm into the sleeve, get shirt over shoulders, left arm into the sleeve, and assist for buttons as pt right arm not functional due to CVA. Pt needing assist to nithin socks, AFO, and shoes. Educated to nithin right LE first as easily to move LLE. OT ADL-Bathing Bathing Type Bathing Type Shower General Evaluation Bathing Ability Moderate Assistance Areas Needing Assistance Wash/Dry Upper Body Wash/Dry Back Wash/Dry Lower Extremities Devices Bathing Equipment Hand Held Shower Sprayer Shower Chair without Arms Grab Bars Comments OT Bathing Comments Pt needing MODA , assist to wash dry his back, vc for completeness as not remembering to wash his bottom , vc to repeat washing as wash cloth was soiled, assist to dry under his arms, dry and wash both arms. Encouraged pt to have family assist for bathing needs. In addition nursing to talk to family or making sure pt has enough assist a home for needs. M5 OT- IP IADL's Start: 06/23/19 15:33 Freq: Status: Active Protocol: Document 06/23/19 15:34 [facility] (Rec: 06/23/19 16:01 [facility] [id number]) OT-Instrumental Activities of Daily Living Deficits IADL Deficits Identified Deficits Home Safety Awareness Home Safety Comments Pt's states gets around in the house on his own with quad cane. Money Management Money Management Caregiver Provides Assistance Meal Preparation Meal Preparation Caregiver Provides Assist Transplant Nurse Transplant Nurse Caregiver Provides Assist M6 OT- IP Functional Cognition Start: 06/23/19 15:33 Freq: Status: Active Protocol: Document 06/25/19 12:06 [facility] (Rec: 06/25/19 12:32 [facility] [id number]) Cognitive Factors Limiting Selfcare Function Cognitive Ability Level of Alertness Alert Patient Orientation Name Attention Span Ability Capable of Focused Attention Capable of Sustained Attention Ability to Follow Commands Able to Follow One Step Commands Cognitive Comments Cognitive Assessment Comments Pt able to follow direction better today. Pt able to nod and point to object to make his needs known. M7 OT- IP Mobility and Balance Start: 06/23/19 15:33 Freq: Status: Active Protocol: Document 06/25/19 12:06 [facility] (Rec: 06/25/19 12:32 [facility] [email or web address]) OT- Bed Mobility Assessment Supine to Sit Supine to Sit Assist Standby Assistance Sit to Supine Sit to Supine Assist Standby Assistance OT-Transfer Assessment Sit to and From Stand Sit to and from Stand Standby Assistance Minimal Assistance 1 Person Assistance Transfers Transfer Ability Standby Assistance Contact Guard Assistance Technique Transfer Destination Bed Chair Shower Stall Transfer Technique Stand Step Pivot Devices Transfer Assistive Devices Gait Belt Small Based Quad Cane Comments Mobility Comments Pt needing [place] from lower surface and especially when he does not have AFO on. Pt's quad cane holding handle backwards, suggested to turn the handle around , initially pt refused and then agreed to try it. Pt nodding is agreement of the change. Also suggested pt may need new strapping for AFO as velfoam not hooking properly. OT- Gait Assessment Gait Gait Assistance Required: Standby Assistance Contact Guard Assist Assistive Devices Assistive Device Gait Belt Small Based Quad Cane OT- Balance Assessment Sitting Balance and Reactions Static Sitting Balance Ability Normal Dynamic Sitting Balance Ability Good Standing Balance and Reactions Static Standing Balance Ability Good M8 OT- IP Objective Assessments Start: 06/23/19 15:33 Freq: Status: Active Protocol: Document 06/23/19 15:34 [facility] (Rec: 06/23/19 16:01 [facility] [id number]) OT Gross Range of Motion Upper Extremity Range of Motion Assessment Right Impaired OT Strength Upper Extremity Strength Assessment Right Impaired OT-Muscle Tone Assessment Muscle Tone WNL No Muscle Tone Location Right Upper Extremity Type of Tone Hypertonicity Severity of Tone Moderate Jordan Grade Scale Grade 3 Comments Muscle Tone Comments Pt noted increase tone and flexor synergy with right UE during exertion. Pt's right arm tends to internally rotate , elbow flexed with hand supinated, wrist and fingers flexed. OT Sensation Assessment Comments Summary Comments Pt's states pt seems to be able to sense sensation and feelings on right side more/ Prior she states that pt not aware of kidney stones for right side. M9 OT- IP Assessment and Plan Start: 06/23/19 15:33 Freq: Status: Active Protocol: Document 06/25/19 12:06 [facility] (Rec: 06/25/19 12:32 [facility] [email or web address]) OT Summary Assessment and Plan Potential Rehabilitation Potential Good Analytic Complexity at Evaluation Moderate Summary Progress Towards Goals Progressing Toward Goals Assessment Summary Pt overall mobility, endurance has improved. Pt today able to actively move his right shoulder a little to assist with dressing needs for his shirt and for showering needs. Pt looking to go home today with assist from family and outpt PT. Frequency of Treatment Frequency Of Treatment Once a Day Discharge Recommendations OT Discharge Recommendations Home with Assistance Outpatient PT
--- NOTE | 2019-06-25 12:51 | PT.IPTN ---
Current Diagnoses Nontraumatic subarachnoid hemorrhage, unspecified (06/22/19) Physical Therapy Treatment Note M2 PT-IP Current Condition Start: 06/23/19 12:11 Freq: NEEDED Status: Active Protocol: Document 06/23/19 10:50 [facility] (Rec: 06/23/19 12:44 AB [id number]) Physical Therapy Current Condition Current Condition Evaluation Date 06/23/19 Treatment Diagnosis CVA; difficulty in walking Onset Date 06/22/19 Precautions Other Precautions falls M3 PT-IP Subjective Start: 06/23/19 12:11 Freq: NEEDED Status: Active Protocol: Document 06/25/19 12:35 [facility] (Rec: 06/25/19 12:51 AW [id number]) Subjective Physical Therapy Visit Type Type Treatment Note Visit Start Time 10:16 Visit Stop Time 10:37 Total Visit Minutes 21 Physical Therapy Visit Comments Patient Comments Pt feeling better with less pain, amenable to working with PT. M4 PT-IP Mobility and Gait Start: 06/23/19 12:11 Freq: NEEDED Status: Active Protocol: Document 06/25/19 12:35 AW (Rec: 06/25/19 12:51 AW [id number]) PT-Bed Mobility Assessment Supine to Sit Supine to Sit Standby Assistance Sit to Supine Sit to Supine Standby Assistance Scooting Scooting to Edge of Bed Standby Assistance PT-Transfer Assessment Sit to and From Stand Sit to and from Stand Standby Assistance Use of Upper Extremities Equipment Transfer Assistive Device Gait Belt Small Based Quad Cane Transfers Transfer Destination Bed Transfer Ability Level of Assist Standby Assistance Gait Assessment Gait Gait Assistance Required: Standby Assistance Contact Guard Assist Distance (Feet) 160 Assistive Devices Assistive Device Gait Belt Small Based Quad Cane Gait Deviations General Gait Pattern Antalgic Decreased Stride Length Step-to Gait Factors Limiting Gait Function Factors Limiting Gait Function Abnormal Tonal Influences Decreased Activity Tolerance Pain Comments Gait Comments Ambulated without AFO. Pt had difficulty achieving heel strike with LLE, but was able to point both feet forward with verbal cues and demonstration in order to correct internal rotation of the left hip. Pt reported increased fatigue as distance progressed but was able to continue to correct hip rotation. Functional Assessments Functional Tests 5 Times Sit to Stand 25.9 seconds M5 PT-IP Objective Assessments Start: 06/23/19 12:11 Freq: NEEDED Status: Active Protocol: Document 06/23/19 10:50 AB (Rec: 06/23/19 12:44 AB [id number]) Orientation Orientation/Cognition Level of Alertness Alert Language Function Ability Expressive Aphasia Safety Awareness Decreased Safety Awareness Gross Range of Motion Lower Extremity ROM Assessment Within Functional Limits Strength Lower Extremity Strength Assessment Right Impaired Comments Strength Comments R knee flexion: 3/5 R ankle DF: 1/5 Muscle Tone Muscle Tone WNL No Muscle Tone Location Right Upper Extremity Type of Tone Hypertonicity Flexor Severity of Tone Moderate M6 PT-IP Treatment Start: 06/23/19 12:11 Freq: NEEDED Status: Active Protocol: Document 06/24/19 16:00 [facility] (Rec: 06/24/19 16:06 [facility] [id number]) Physical Therapy Treatment Education Education Provided Safety Other Treatments Other Treatment Performed standing balance NBOS, EO and EC M7 PT-IP Assessment and Plan Start: 06/23/19 12:11 Freq: NEEDED Status: Active Protocol: Document 06/25/19 12:35 AW (Rec: 06/25/19 12:51 AW [id number]) PT Summary Assessment and Plan Potential Rehabilitation Potential Good Status of Condition at Evaluation Stable Summary Assessment Summary Pt did express increasing fatigue with gait today but was able to safely clear feet without brace and to correct internal rotation of L hip with verbal cues and demonstration. Pt safe to discharge home when medically cleared. Goals Days to Meet Goals 3 Frequency of Treatment Frequency Of Treatment Twice a Day Treatment Plan Physical Therapy Treatment Plan Bed Mobility Training Transfer Training Gait Training Therapeutic Exercise Balance Retraining Post Op Education Discharge Planning Hot or Cold Pack Neuromuscular Re-ed Coordination Retraining Manual Therapy Recommendations To Nursing Amount of Assist Needed 1 Person Assist Discharge Recommendations PT Discharge Recommendations Home with Assistance Outpatient PT
[2019-06-25] MEDS: INSULIN ASPART 100 UNIT/ML INSULN PEN SUBCUT (14:16)
--- NOTE | 2019-06-25 15:18 | PC.NURSE ---
Addendum entered by Shana Gill R.N. 06/25/19 16:01: Significant other at bedside. PT Iva came down and talked with patient and about home situation and having a consistent caregiver. states that patient indeed does have someone available to help at all times with showers and bathroom visits. PT stated to this nurse that patient may discharge home with family. Updated career development facilitator Nanci who states that patient may indeed discharge home with family at this time. Float nurse Eve discharging patient home with at this time. Original Note: Pt in chair waiting for discharge home once arrives. PT with Iva and Case Seth Christine to meet and speak with to clarify home situation Pt stating throughout the shift that he does not have a 24/7 or consistent caregiver. Shakes head yes to caregiver being his daughter. Does not believe someone can be present during all baths/bathroom visits to prevent falls. Pt needs constant reinforcement to use call nelson when done using the restroom. Verbalized concern to case ariet and PT for monitoring patient at home. reached on phone to come at 1500 after work.
--- NOTE | 2019-06-25 16:26 | OT.IP.TRT ---
Current Diagnoses Nontraumatic subarachnoid hemorrhage, unspecified (06/22/19) Occupational Therapy Treatment Note M2 OT-IP Current Condition Start: 06/23/19 15:33 Freq: Status: Active Protocol: Document 06/23/19 15:34 [facility] (Rec: 06/23/19 16:01 [facility] [id number]) Occupational Therapy Current Condition Current Condition Evaluation Date 06/23/19 Treatment Diagnosis CVA, weakness, decreased functional mobility and self - care Diagnosis Onset Date 06/22/19 Weight Bearing Status Weight Bearing Status Weight Bear as Tolerated M3 OT- IP Subjective and Pain Start: 06/23/19 15:33 Freq: Status: Active Protocol: Document 06/25/19 16:06 [facility] (Rec: 06/25/19 16:26 [facility] [id number]) OT- Subjective Occupational Therapy Visit Type Type Treatment Note Visit Start Time 15:48 Visit Stop Time 16:03 Total Visit Minutes 15 Occupational Therapy Visit Comments Patient Comments Pt's present as picking pt up for discharge home today. M4 OT- IP ADL's Start: 06/23/19 15:33 Freq: Status: Active Protocol: Document 06/25/19 16:06 [facility] (Rec: 06/25/19 16:26 [facility] [id number]) OT ADL-Dressing Comments OT Dressing Comments Pt's able to clarify that pt always has assist during bathing and dressing needs at home- prior on the phone the other day, she states that he shower and toilets himself on his own. Reiterated pt will need assist at all times for ADL's, vc for completeness, balancce , and safety. Pt's has good understanding that pt will need 24/7 assist initially for all ADL and functional mobility needs, M6 OT- IP Functional Cognition Start: 06/23/19 15:33 Freq: Status: Active Protocol: Document 06/25/19 16:06 [facility] (Rec: 06/25/19 16:26 [facility] [id number]) Cognitive Factors Limiting Selfcare Function Cognitive Comments Cognitive Assessment Comments Touched base with pt's how pt able to communicate with her, pt's states mainly able to know from his facial expressions and gestures, however when pt not feeling well has more difficulty. Prior had tried to use picture book but not using it consistently. M7 OT- IP Mobility and Balance Start: 06/23/19 15:33 Freq: Status: Active Protocol: Document 06/25/19 12:06 [facility] (Rec: 06/25/19 12:32 [facility] [email or web address]) OT- Bed Mobility Assessment Supine to Sit Supine to Sit Assist Standby Assistance Sit to Supine Sit to Supine Assist Standby Assistance OT-Transfer Assessment Sit to and From Stand Sit to and from Stand Standby Assistance Minimal Assistance 1 Person Assistance Transfers Transfer Ability Standby Assistance Contact Guard Assistance Technique Transfer Destination Bed Chair Shower Stall Transfer Technique Stand Step Pivot Devices Transfer Assistive Devices Gait Belt Small Based Quad Cane Comments Mobility Comments Pt needing [place] from lower surface and especially when he does not have AFO on. Pt's quad cane holding handle backwards, suggested to turn the handle around , initially pt refused and then agreed to try it. Pt nodding is agreement of the change. Also suggested pt may need new strapping for AFO as velfoam not hooking properly. OT- Gait Assessment Gait Gait Assistance Required: Standby Assistance Contact Guard Assist Assistive Devices Assistive Device Gait Belt Small Based Quad Cane, pt's states pt turns the handle around on his quad cane all the time when educating of proper position for samll base quad cane handle so the feet point out to decrease risk of tripping over the SBQC. OT- Balance Assessment Sitting Balance and Reactions Static Sitting Balance Ability Normal Dynamic Sitting Balance Ability Good Standing Balance and Reactions Static Standing Balance Ability Good M8 OT- IP Objective Assessments Start: 06/23/19 15:33 Freq: Status: Active Protocol: Document 06/23/19 15:34 [facility] (Rec: 06/23/19 16:01 [facility] [id number]) OT Gross Range of Motion Upper Extremity Range of Motion Assessment Right Impaired OT Strength Upper Extremity Strength Assessment Right Impaired OT-Muscle Tone Assessment Muscle Tone WNL No Muscle Tone Location Right Upper Extremity Type of Tone Hypertonicity Severity of Tone Moderate Jordan Grade Scale Grade 3 Comments Muscle Tone Comments Pt noted increase tone and flexor synergy with right UE during exertion. Pt's right arm tends to internally rotate , elbow flexed with hand supinated, wrist and fingers flexed. OT Sensation Assessment Comments Summary Comments Pt's states pt seems to be able to sense sensation and feelings on right side more/ Prior she states that pt not aware of kidney stones for right side. M9 OT- IP Assessment and Plan Start: 06/23/19 15:33 Freq: Status: Active Protocol: Document 06/25/19 16:06 [facility] (Rec: 06/25/19 16:26 [facility] [id number]) OT Summary Assessment and Plan Potential Rehabilitation Potential Good Analytic Complexity at Evaluation Low Summary Assessment Summary Pt's has good understanding that someone will be with the pt at all times and that they can assist him for all ADl needs and functional mobility. Pt is unsteady especially without the brace and that someone has to physically assist for his balance when up. Pt's to call to start outpt PT. Treatment Plan OT Treatment Plan Discharge Planning Discharge Recommendations OT Discharge Recommendations Home with 24/ Assist Outpatient PT
--- NOTE | 2019-06-25 16:28 | PC.NURSE ---
Pt is fully dressed sitting up in chair @ beginning of shift. Spouse is present and is awaiting care management and OT to speak with spouse. OT arrives and spends some time in room talking to pt and pt's spouse. Per OT, Iva, pt is cleared for discharge and was informed by same care management unable to speak with family at this time. Pt is one assist to toilet with CHANNEL WORKER and into wheelchair for discharge. Discharge instructions provided to pt and pt's spouse in written and verbal format. All pt's personal effects were collected and accounted for. Pt left hospital in stable condition with CHANNEL WORKER escort and spouse to private vehicle via wheelchair.
== END 2019-06-25 16:28 | disposition home or self-care (01) | DRG 948 ==
LOC: ED 16:39 → ICU 17:51 → AC 06-23 13:20
PROVIDERS: Admitting Provider Family Medicine; Emergency Provider Emergency Medicine; Family Provider Family Medicine; PCP Family Medicine; Visit Provider Family Medicine
DX: R53.1 Weakness (principal); I50.22 Chronic systolic (congestive) heart failure; I69.351 Hemiplegia and hemiparesis following cerebral infarction affecting right dominant side; D68.61 Antiphospholipid syndrome; M79.605 Pain in left leg; I11.0 Hypertensive heart disease with heart failure; I69.320 Aphasia following cerebral infarction; I25.5 Ischemic cardiomyopathy; E11.9 Type 2 diabetes mellitus without complications; I25.10 Atherosclerotic heart disease of native coronary artery without angina pectoris; I67.9 Cerebrovascular disease, unspecified; M06.9 Rheumatoid arthritis, unspecified; W18.30XA Fall on same level, unspecified, initial encounter; Y92.002 Bathroom of unspecified non-institutional (private) residence as the place of occurrence of the external cause; Z95.810 Presence of automatic (implantable) cardiac defibrillator; Z79.4 Long term (current) use of insulin
CPT/HCPCS: 36415; 36591; 70450; 71045; 72170; 73560; 80053; 81003; 82550; 82962; 83690; 84484; 85025; 92526; 93005; 96360; 96361; 97116; 97161; 97166; 97530; 97535; 99223; 99232; 99238; 99284; 99285

== ENCOUNTER → 2019-08-14 12:04 | Outpatient (CLI) | payer OTHER, MEDICARE, MEDICAID, SELFPAY ==
[2019-06-22 18:31] VITALS: BMI 24.5
--- NOTE | 2019-08-14 | DI.US.S_ITS ---
PROCEDURE: US RENAL COMPLETE INDICATIONS: CALCULUS OF KIDNEY TECHNIQUE: Real-time scanning was performed of the kidneys and bladder, with image documentation. Images are available for interpretation at 5:57 PM. COMPARISON: [facility], , RENAL COMPLETE, 03/29/2017, 14:46. FINDINGS: Kidneys: Kidneys are normal in size. Right kidney measures 9.2 cm long; left kidney measures 10.4 cm long. Right renal cortical thickness is 1.5 cm; left renal cortical thickness is 1.6 cm. Renal cortical echotexture is normal. No hydronephrosis. The right kidney demonstrates a punctate area of increased echogenicity measuring approximately 5 mm and is too small to definitively characterize. Renal cysts is noted measuring 21 x 29 x 27 mm. The left kidney demonstrates a punctate area of increased echogenicity measuring 6 mm. Cystic foci are identified measuring 56 x 52 x 67 mm compared to 53 x 56 x 55 mm as well as a second focus measuring 42 x 39 x 33 mm compared to 36 x 35 x 49 mm. No suspicious solid mass lesions. Bladder: Pre-void bladder volume is 51 mL. Post-void residual is 2 mL. Pre-void images demonstrate no intraluminal masses or stones. On pre-void images, bilateral ureteral jets are noted with color Doppler interrogation. (Of note, ureteral jets may not be detectable in up to 25% of cases due to insufficient differences in specific gravity between ureteral and bladder urine). Miscellaneous: No free pelvic fluid. IMPRESSION: 1. Echogenic foci too small to definitively characterize. These could represent small areas of renal stone. 2. Bilateral renal cysts. Dictated by: Domonique Ruiz M.D. on 08/14/2019 at 19:46 Approved by: Domonique Ruiz M.D. on 08/14/2019 at 19:50
== END ==
PROVIDERS: Family Provider Family Medicine; PCP Family Medicine; Visit Provider Urology
DX: N20.0 Calculus of kidney (principal); N28.1 Cyst of kidney, acquired
CPT/HCPCS: 76770

== ENCOUNTER 2019-08-19 13:30 | Outpatient (RCR) | payer OTHER, MEDICARE, MEDICAID, SELFPAY ==
[2019-06-22 18:31] VITALS: BMI 24.5
--- NOTE | 2019-08-03 18:15 | ST.OPIE ---
Visit Care Team Role Provider Type Delfino Epstein MD Attending Provider Physician Primary Care Provider Specialty: Family Practice Address: [address] [place] [address], [id number] Email: [email or web address] Speech-Language Pathology Initial Evaluation INFORMATION SECURITY Language Evaluation Start: 08/03/19 17:26 Freq: Status: Active Protocol: Document 08/03/19 17:26 [facility] (Rec: 08/03/19 18:15 [facility] [email or web address]) Language Evaluation Session Time Visit Start Time 16:30 Visit Stop Time 17:15 Total Visit Minutes 45 Visit Information Visit Number 1 Plan of Care Dates 08/03/19-11/02/19 Next Note Type Next Note Type Treatment Note Referral Referring Physician Dr. Epstein Reason for Referral aphasia Language Evaluation Assessment Type informal Past Medical History Patient History This 63-yr-old male was admitted to hospital after episodes of increasing weakness and fall most recently on 06/22/19. CT head revealed Left-sided encephalomalacia consistent with a prior left MCA territory infarct redemonstrated; Small focus of relative hyperattenuation in this region a small region of subarachnoid hemorrhage cannot be excluded due to history of recent falls . Pt was unable to participate in MRI d/t pacemaker. At baseline, the pt has been non-verbal with right-side hemiplesia secondary to hx of CVA, communicating via gestures facial expressions and answering yes/no questions with head nod/shake. His reported that since his most recent stroke, he has not been the same. He sometimes stares of into space , seemingly not understanding. She noted that prior to the stroke, he was saying some automatic words (?hi, ok?, etc .) infrequently, but is not speaking as much now. Previous Therapy Previous Speech-Language Therapy Yes: Seen by several STs since initial 2103 CVA Oral Motor Examination Oral Motor Exam Completed No Subjective Subjective Pt was observed in PT to be able to follow directions. Possibly his processing on language is delayed; however, he is able to follow complex directions. Pt was accompanied to the treatment room by his , Felicity, who provided history. - Informal Assessment Receptive Language Normal Yes: Slow to process Expressive Language Normal No: Nonverbal aphasic with gestures, facial expressions Assessment Findings The pt is able to point to pictures as named. His response is slow secondary to delayed auditory processing. He was able to non/shake his head appropriately for yes/no responses. Additionally, he was using gestures and some non-speech sounds to point out different things in the room (i.e., a fly was in the room, buzzing around). He smiled, laughed and made facial expressions to indicate messages. Trial use of his Lingraphica aphasi sentences from most previous therapy was successful. It was suggested to Mrs. Colvin that the options fo the pictures be pared down to basic needs. Things like foods, health ( sick, tired, hungry, etc), pain level, etc., would be used to help Sukh communicate his basic needs to his . Keeping the communication options to basic needs may possibly motivate Sukh to start using the AAC again. He nodded that he would like to try it again. - Receptive Language - Expressive Language - Findings Language Findings Pt presents with nonverbal expressive aphasia. He has been seen by several speech pathologists at [facility] over the years since initial CVA in 2013. Most recently he was hospitalized with a small CVA. His requested therapy to address his communication. Reviewed with Sukh and his the prior therapeutic interventions. Sukh seemed interested in attempting to use the Lingraphica AAC in a more simplified form, without multiple levels of details. A visual/communicative AAC appears to be the best option to allow Sukh to communicate needs beyond yes/no responses or facial expressions. Recommendations Recommendations Speech therapy to assist and direct AAC use and implementation Treatment Goals Short Term Goals Sukh and his will reduce the AAC icons to a basic needs only system, bringing the AAC in to treatment for practice. Sukh will augment his facial expressions and yes/no responses with AAC as needed. Correction Goals Sukh will be able to communicate basic needs via AAC, facial expressions, yes/ no responses to his family in order to meed his daily needs.
--- NOTE | 2019-08-03 18:16 | ST.OPPOC ---
Visit Care Team Role Provider Type Delfino Epstein MD Attending Provider Physician Primary Care Provider Address: [address] [place] [address], [id number] Speech Pathology Plan of Care General Information Pt is a 62 year-old male presenting to outpatient OT four years s/p CVA w/ resulting right-sided hemiparesis. PMH: CVA; DM II; depression; HTN; OH; Pacemaker; OA Plan of Care Dates 08/03/19-11/02/19 Patient/Caregiver Compliance Fair with Home Exercise Program Short Term Goals Sukh and his will reduce the AAC icons to a basic needs only system, bringing the AAC in to treratment for practice. Sukh will augment his facial expressions and yes/no responses with AAC as needed. Physician Gynecologist Goals Stguart will be able to communicate basic needs via AAC, facial expressions, yes/no responses to his family in order to meed his daily needs. Rehabilitation Potential Fair Assessment of Improvement Decreased attention to R side of space, decreased orientation to midline, decreased activity tolerance and decreased carry-over of AROM/tone management exercises of UE into the home. Increased reliance on support from family for execution of exercises. Improving tolerance for activities incorporating maintenance of grasp in standing w/ weight shifting and w/ bimanual activities. Recommend consulting w/ in re: continuation of outpt treatment given decreased carry-over of recommendations by pt without maximum environmental and familial supports, as well as discussion re: focus of treatment during upcoming treatment sessions. Reviewed with Patient Goals,Progress Being Made,Home Exercise Program Patient Understanding Good Comment 12 weeks ongoing Treatment Frequency Once a Week Comment Consult w/ pt's ; limited therapist availability Please Sign and Return: I have reviewed this Plan of Care and certify that the skilled therapy services above are required to meet the patient?s needs. Physician Signature Date Printed Name and Credentials Clinical Instructor Signature Printed Name and Credentials
--- NOTE | 2019-08-19 14:39 | ST.OPTN ---
Visit Care Team Role Provider Type Delfino Epstein MD Attending Provider Physician Primary Care Provider Address: [address] [place] [address], [id number] MINING MACHINERY ASSEMBLER Treatment Note MINING MACHINERY ASSEMBLER Treatment Note Start: 08/03/19 17:26 Freq: Status: Active Protocol: Document 08/19/19 14:17 LNK (Rec: 08/19/19 14:39 LNK [email or web address]) Speech Pathology Treatment Note Session Time Visit Start Time 13:00 Visit Stop Time 14:15 Total Visit Minutes 45 Visit Information Visit Number 2 Plan of Care Dates 08/03/19-11/02/19 Visit Type Note Type Treatment Note Next Note Type Next Note Type Treatment Note General Information General Information This 63-yr-old male presents with nonverbal expressive aphasia. He has been seen by several speech pathologists at [facility] over the years since initial CVA in 2013. Most recently he was hospitalized with a small CVA. Subjective Identification Type Name,Picture Others Present Family Chief Complaint(s) Speech Patient Knowledge/Awareness of MINING MACHINERY ASSEMBLER Role Excellent in Treatment Parent/Caretake Knowledge/Awareness of Excellent MINING MACHINERY ASSEMBLER Role in Treatment Objective Short Term Goals Skuh and his will reduce the AAC icons to a basic needs only system, bringing the AAC in to treatment for practice. Sukh will augment his facial expressions and yes/no responses with AAC as needed. Wire Wrapper Machine Operator Goals Sukh will be able to communicate basic needs via AAC, facial expressions, yes/ no responses to his family in order to meed his daily needs. [ End ] Treatment Activities Willy was accompanied by his daughter Clara. They brought in his [employer] AAC . According to Clara, Willy's has been working on simplifying the AAC to better meet Willy's ADL needs. Review of the icons with Willy, we determined that the overall AAC, as currently set up, is too complicated to make it practical for Willy. Looking at the different levels of the icons and messages, we determined several icons and/ or levels that could be eliminated or simplified. Willy was attentive and used body language to indicate agreement or not. Assessment Patient Response to Treatment Excellent Rehab Potential Good Reviewed with Patient Goals,Home Exercise Program Patient/Caregiver Understanding Excellent Plan Amount of Therapy Recommended 1-2 Months Length of Session 45 Minutes Therapeutic Contents AAC Provided Patient/Caregiver Instruction Home Exercise Program
--- NOTE | 2019-09-14 12:57 | ST.OPDS ---
Visit Care Team Role Provider Type Delfino Epstein MD Attending Provider Physician Primary Care Provider Address: [address] [place] [address], [id number] IMMIGRATION COORDINATOR Treatment Note IMMIGRATION COORDINATOR Treatment Note Start: 08/03/19 17:26 Freq: Status: Active Protocol: Document 09/14/19 12:53 LNK (Rec: 09/14/19 12:57 LNK [email or web address]) Speech Pathology Treatment Note Visit Type Note Type Discharge Summary General Information General Information This 63-yr-old male was seen for ST for nonverbal expressive aphasia. He has been seen by several speech pathologists at [facility] over the years since initial CVA in 2013. Most recently he was treated for a small a small CVA. Assessment Assessment of Improvement Sukh was recently hospitalized for a fall and was discharged to home with home health services : OT, PT, ST. Discharge from outpatient service at this time Plan Amount of Therapy Recommended No Further Therapy Frequency of Treatment No Further Therapy Therapy Recommendations Discharge from Speech Therapy
== END 2019-09-18 09:52 ==
LOC: SP 13:30
PROVIDERS: PCP Family Medicine; Visit Provider Family Medicine
DX: R53.1 Weakness (principal); I69.920 Aphasia following unspecified cerebrovascular disease
CPT/HCPCS: 92507; 96105

== ENCOUNTER 2019-09-01 14:30 | Outpatient (RCR) | payer OTHER, MEDICARE, MEDICAID, SELFPAY ==
[2019-06-22 18:31] VITALS: BMI 24.5
--- NOTE | 2019-07-02 17:39 | PT.OIE ---
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 (07/02/19) Weakness (07/02/19) History of falling (07/02/19) Past Medical History (Last Updated 07/23/18 @ 15:38 by Aida Jackson) Antiphospholipid antibody syndrome (Chronic) 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 (Chronic 09/01/15) Aphasia following cerebrovascular disease (Chronic 01/27/15) CAD (coronary artery disease) (Chronic) Cardiac arrhythmia (Chronic) Cerebrovascular accident (CVA) involving left middle cerebral artery territory (Chronic 09/01/15) Chronic atrial flutter (Chronic 09/01/15) Chronic systolic congestive heart failure (Chronic 09/01/15) Coronary artery disease involving mi'kmaq coronary artery of mi'kmaq heart without angina pectoris (Chronic 09/01/15) Diabetes mellitus (Chronic) DVT (deep venous thrombosis) (Resolved) Essential hypertension (Chronic 09/01/15) Hemiparesis affecting dominant side as late effect of cerebrovascular accident (Chronic 01/27/15) History of stroke with residual deficit (Chronic) Hyperlipidemia (Chronic 09/01/15) Hyperlipidemia (Chronic) Myocardial infarction (Resolved) Pacemaker (Chronic) Rheumatoid arthritis (Chronic) Stenosis of left carotid artery (Chronic 12/22/13) Systolic heart failure (Resolved) Type 2 diabetes mellitus (Chronic) Past Surgical History (Last Updated 06/22/19 @ 19:08 by Vidya Yao RN) AICD (automatic cardioverter/defibrillator) present (Acute) History of angioplasty (Resolved) Presence of cardiac pacemaker (Resolved) Visit Care Team Role Provider Type Delfino Epstein MD Attending Provider Physician Primary Care Provider Specialty: [facility] Address: [address] [place] [address] Email: [email or web address] Physical Therapy Initial Evaluation PT-OP-A Visit Information Start: 07/02/19 07:28 Freq: Status: Active Protocol: Document 07/02/19 14:34 AR (Rec: 07/02/19 15:57 AR [email or web address]) Out-Patient Physical Therapy Visit Information Visit Information Visit Type Initial Evaluation Visit Start Time 13:47 Visit Stop Time 14:30 Total Visit Minutes 43 Visit Number 1 Number of VESSEL SPECIALIST Visits 0 Precautions Precautions Fall risk PT-OP-B Current Condition Start: 07/02/19 07:28 Freq: Status: Active Protocol: Document 07/02/19 14:34 AR (Rec: 07/02/19 15:57 AR [email or web address]) Current Condition History of Current Condition Onset Date CVA in 2013. Falls x3 & hospitalization 06/22/19 Current Complaints dec activitiy tolerance, poor balance, dec amb speed History of Current Condition Pt is a 63 y.o. 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 Pt has been seen at [facility] OP for PT, OT, ST over the past few years. He was recently hospitalized ( 06/22/19) for 3 falls in the same day. One fall occured in the shower and 2 occured getting out of bed. Since recent hospitalization, daughter reports she has seen a decline in his function in dec cognitive processing. Pt has dec stamina with walking, is more unstable on his feet, has been shuffling more and appears to have less coordination. Daughter belives he fell on 06/22/19 was due to pain in his LLE (from RA). Pt reports no sensation on RLE. He has a hx of Rhemuatoid Arthritis, blood clots, depression, diabetes mellitus I, falls, depression, heart attack, pacemaker, neuropathy, and R elbow surgery. Pt amb w a large base quad cane and DF assist AFO. Pt has had multiple falls prior to most recent hospitalization that normally occur with transitional movements like getting out of bed or into a car, prabhu when he is tired. There is an incline and gravel on their driveway which his daughter believes may be contributing to the falls with car transfers. Pt has required 24/7 caregiving since his CVA in 2013, which is provided by his daughter during the daytime and his at nighttime. Prior Treatments and Tests PT, OT, ST. Has seen improvements with PT, but discontinued d/t plateauing of function. Future Testing and Treatments Planned OT at [facility], pt is on waiting list Treatment Goals Patient/Caregiver Goals To improve walking endurance, balance and to decrease fall risk. Prior Functional Status Baseline Function- ADL's Needs Assist Baseline Function- Mobility Needs Assist Baseline Function- Gait LBQC, AFO Baseline Function- Work/School NA Baseline Function- Recreation/Hobbies Able to ride in car with his daughter to drop of grandchildren at school. Able to amb short distances in the community w/LBQC. Able to use motorized carts at larger stores PT-OP-C Subjective Start: 07/02/19 07:28 Freq: Status: Active Protocol: Document 07/02/19 14:34 AR (Rec: 07/02/19 15:57 AR [email or web address]) OP-PT Subjective Patient Comments Patient Comments Pt was agreeable to therapy today. He was unable to verbally express concerns but nodded yes or no in response to subjective questioning. Daughter was able to answer all hx questions. Pt would like to improve balance in order to decrease falls. PT-OP-D Balance Start: 07/02/19 07:28 Freq: Status: Active Protocol: Document 07/02/19 14:34 AR (Rec: 07/02/19 15:57 AR [email or web address]) OP-PT Balance Assessment Sitting Balance Static Sitting Balance Ability Normal Standing Balance Static Standing Balance Ability Fair Device Used none Standing Balance Comments Fair standing balance with LBQC near by Tinetti Balance Assessment Sitting Balance Sitting Balance Steady, safe Arising from Chair Ability to Arise Able, uses arms to help Attempts to Arise Able, requires >1 attempt Standing Balance Immediate Standing Balance Steady with support Standing Balance Steady, wide stance Nudged Response Staggers, catches self Standing with Eyes Closed Steady Turning Step Pattern Turning 360 Degrees Discontinuous steps Stability Turning 360 Degrees Unsteady, grabs/staggers Sitting Down Sitting Down Uses arms or unsteady Gait and Step Initiation of Gait Hesitancy, mult. attempts Right Foot Step Length Does pass stance foot Right Foot Step Height Completely clears floor Left Foot Step Length Does not pass stance foot Left Foot Step Height Completely clears floor Step Description Step Symmetry Step length not equal Step Continuity Steps appear continuous Gait Description Path Description Mild/moderate deviation Trunk Description Marked sway or uses aide Walking Stance Heels apart Scoring and Interpretation Tinetti Composite Score (points) 13 Interpretation of Scores High risk for falls(< 19) Tinetti Impairment Rating from Composite 40 to <60% Impaired (Score 12- Score 16) Estrella Fall Scale Copyright Permission PT-OP-E Functional Tests Start: 07/02/19 07:28 Freq: Status: Active Protocol: Document 07/02/19 14:34 AR (Rec: 07/02/19 15:57 AR [email or web address]) Functional Tests 6 Minute Walk Test Distance 250 ft Device Used LBQC Comments only able to complete 4 min 30 sec and needed to seated rest break. 3 LOB PT-OP-G Mobility & Gait Start: 07/02/19 07:28 Freq: Status: Active Protocol: Document 07/02/19 14:34 AR (Rec: 07/02/19 15:57 AR [email or web address]) OP Mobility Evaluation Transfers Sit to Stand Heavy use of LUE to push up from chair. Pt had some instability with rising from chair. OP Gait Assessment Gait Gait Assistance Required: Contact Guard Assist Distance (Feet) 250 Assistive Devices Assistive Device Large Based Quad Cane Orthotic/Prosthetic Devices or Brace: Yes Gait Deviations General Gait Pattern Decreased Stride Length, Decreased Feet Clearance Factors Limiting Gait Function Factors Limiting Gait Function Abnormal Tonal Influences, Decreased Activity Tolerance, Decreased Sensation,Decreased Strength,Incoordination, Limited Range of Motion,Pain, Poor Balance,Poor Safety Awareness Comments Gait Comments Pt had dec step length on L side d/t instability on RLE. Heavy leaning on LBQC for support, prabhu toward end of the 6MWT. Pt had 3 LOB but was able to catch himself before falling. One LOB d/t pt catching L toes (significant in-toeing on LLE). Other LOB seemed to be d/t weakness and fatigue of LLE. PT-OP-M Strength Start: 07/02/19 07:28 Freq: Status: Active Protocol: Document 07/02/19 14:34 AR (Rec: 07/02/19 15:57 AR [email or web address]) Hip Strength Hip Manual Muscle Testing Left Flexion (L2) 3- Fair- Right Flexion (L2) 3+ Fair+ Knee Strength Knee Manual Muscle Testing Left Flexion (S2) 4+ Good+ Extension (L3) 2- Poor- Comments Pt may have not understood instruction for knee flex testing. He was able to slide foot under chair with minimal use of LUE. Right Flexion (S2) 5 Normal Extension (L3) 5 Normal Ankle/Foot Strength Ankle and Foot Manual Muscle Testing Left Dorsiflexion (L4) 1 Trace Plantarflexion (S1) 3+ Fair+ Right Dorsiflexion (L4) 4 Good Plantarflexion (S1) 5 Normal Toe Strength Toe Manual Muscle Testing Right Great Toe Extension 1 Trace PT-OP-T Assessment and Plan Start: 07/02/19 07:28 Freq: Status: Active Protocol: Document 07/02/19 14:34 AR (Rec: 07/02/19 15:57 AR [email or web address]) Physical Therapy Assessment Rehab Potential Rehabilitation Potential Fair Evaluation Complexity Number of Personal Factors/Comorbidities 3 or More Number of Body Systems Impaired 4 or More Clinical Presentation at Evaluation Stable Impairments Impairments Activity Tolerance,Balance, Coordination,Functional Activities,Functional Mobility ,Gait,Pain,Posture,ROM, Sensation,Soft Tissue Mobility ,Strength,Tone,Transfers Other Concerns Fall Risk high fall risk Barriers to Rehabilitation expressive aphasia, chronic stroke hx, complex medical history, multiple co- morbidities Goals Tinnetti Impairment high fall risk Short Term Goal (STG) Pt will increase Tinnetti score to at least 17/28 in order to decrease fall risk to moderate. STG Duration 08/02/2019 Longterm Goal (LTG) Pt will increase Tinnetti score to at least 24/28 in order to decrease fall risk to low. LTG Duration 10/02/2019 6MWT Impairment dec amb speed Short Term Goal (STG) Pt will be able to walk for 6 minutes w/o seated rest break in order to improve ability to walk in the community with daughter. STG Duration 08/02/2019 Longterm Goal (LTG) Pt will be able to walk 300 ft in 6 minutes with use of LBQC and AFO and w/o seated rest break in order be able to grocery shop in smaller stores w daughter. LTG Duration 10/02/2019 Gait Impairment gait deviations Short Term Goal (STG) Pt will be able to amb for 20 ft with minimal in-toeing of LLE in order to reduce risk of falls. STG Duration 08/02/2019 Longterm Goal (LTG) Pt will be able to amb for 50 ft without leaning onto LBQC for heavy support in order to reduce fall risk. LTG Duration 10/02/2019 Assessment Summary Assessment Pt presents with dec balance and ambulation speed and safety. Tinnetti scoring indicates that patient is high fall risk (10/01) and pt was only able to amb 250ft in 4 min and 30 sec before requiring a seated rest break during 6MWT. Pt and daughter have noticed a decline in function recently and pt has not been able to amb short distances in the community, as he was previously able to. Pt has a history of falls and will benefit from skilled PT to improve strength, balance and aerobic capacity in order to improve functional mobility and participation in family activities. Physical Therapy Plan Frequency and Duration Frequency of Treatment 1-2x/wk Duration of Treatment 3 months Plan of Care Start Date 07/02/19 Plan of Care End Date 10/02/19 Therapeutic Interventions Therapeutic Interventions Aquatic Therapy,Balance Training,Coordination Training ,Gait Training,Home Exercise Program,Joint Mobilizations, Manual Therapy,Neuromuscular Re-education,Orthotic/ Prosthetic Management,Patient/ Caregiver Education,Self-Care/ Home Management,Sensory Integration,Soft Tissue Mobilization,Taping, Therapeutic Activities, Therapeutic Exercises Modalities Electric Stimulation Next Visit Focus/Plan Next Note Type Treatment Note Next Visit Plan review STS form (given as HEP) . gait training as tolerated, focus on dec in-toeing and inc stride length of LLE. balance training (EC on unstable surface, stagger stance on level surface). bed mobility as necessary
--- NOTE | 2019-07-13 18:03 | PT.OTN ---
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 (07/13/19) Weakness (07/13/19) History of falling (07/13/19) Physical Therapy Treatment Note PT-OP-A Visit Information Start: 07/02/19 07:28 Freq: Status: Active Protocol: Document 07/13/19 15:44 AR (Rec: 07/13/19 15:59 AR [email or web address]) Out-Patient Physical Therapy Visit Information Visit Information Visit Type Treatment Note Visit Start Time 13:00 Visit Stop Time 13:45 Total Visit Minutes 45 Visit Number 2 Number of ARCHITECTURAL DRAFTING INSTRUCTOR Visits 0 PT-OP-B Current Condition Start: 07/02/19 07:28 Freq: Status: Active Protocol: Document 07/02/19 14:34 AR (Rec: 07/02/19 15:57 AR [email or web address]) Current Condition History of Current Condition Onset Date CVA in 2013. Falls x3 & hospitalization 06/22/19 Current Complaints dec activitiy tolerance, poor balance, dec amb speed History of Current Condition Pt is a 63 y.o. 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 Pt has been seen at [facility] OP for PT, OT, ST over the past few years. He was recently hospitalized ( 06/22/19) for 3 falls in the same day. One fall occured in the shower and 2 occured getting out of bed. Since recent hospitalization, daughter reports she has seen a decline in his function in dec cognitive processing. Pt has dec stamina with walking, is more unstable on his feet, has been shuffling more and appears to have less coordination. Daughter saraives he fell on 06/22/19 was due to pain in his LLE (from RA). Pt reports no sensation on RLE. He has a hx of Rhemuatoid Arthritis, blood clots, depression, diabetes mellitus I, falls, depression, heart attack, pacemaker, neuropathy, and R elbow surgery. Pt amb w a large base quad cane and DF assist AFO. Pt has had multiple falls prior to most recent hospitalization that normally occur with transitional movements like getting out of bed or into a car, prabhu when he is tired. There is an incline and gravel on their driveway which his daughter believes may be contributing to the falls with car transfers. Pt has required 24/7 caregiving since his CVA in 2013, which is provided by his daughter during the daytime and his at nighttime. Prior Treatments and Tests PT, OT, ST. Has seen improvements with PT, but discontinued d/t plateauing of function. Future Testing and Treatments Planned OT at [facility], pt is on waiting list Treatment Goals Patient/Caregiver Goals To improve walking endurance, balance and to decrease fall risk. Prior Functional Status Baseline Function- ADL's Needs Assist Baseline Function- Mobility Needs Assist Baseline Function- Gait LBQC, AFO Baseline Function- Work/School NA Baseline Function- Recreation/Hobbies Able to ride in car with his daughter to drop of grandchildren at school. Able to amb short distances in the community w/LBQC. Able to use motorized carts at larger stores PT-OP-C Subjective Start: 07/02/19 07:28 Freq: Status: Active Protocol: Document 07/13/19 15:44 AR (Rec: 07/13/19 15:59 AR [email or web address]) OP-PT Subjective Patient Comments Patient Comments Pt did not want to work on gait training today but was happy to work on some balance and strength training. His reports they have seen doctor recently and she made them aware that Sukh has not been himself recently and she is worried about his depression getting worse. He has been less willing to do things around the house and to visit people. She believes being more active will help him. PT-OP-D Balance Start: 07/02/19 07:28 Freq: Status: Active Protocol: Document 07/02/19 14:34 AR (Rec: 07/02/19 15:57 AR [email or web address]) OP-PT Balance Assessment Sitting Balance Static Sitting Balance Ability Normal Standing Balance Static Standing Balance Ability Fair Device Used none Standing Balance Comments Fair standing balance with LBQC near by Tinetti Balance Assessment Sitting Balance Sitting Balance Steady, safe Arising from Chair Ability to Arise Able, uses arms to help Attempts to Arise Able, requires >1 attempt Standing Balance Immediate Standing Balance Steady with support Standing Balance Steady, wide stance Nudged Response Staggers, catches self Standing with Eyes Closed Steady Turning Step Pattern Turning 360 Degrees Discontinuous steps Stability Turning 360 Degrees Unsteady, grabs/staggers Sitting Down Sitting Down Uses arms or unsteady Gait and Step Initiation of Gait Hesitancy, mult. attempts Right Foot Step Length Does pass stance foot Right Foot Step Height Completely clears floor Left Foot Step Length Does not pass stance foot Left Foot Step Height Completely clears floor Step Description Step Symmetry Step length not equal Step Continuity Steps appear continuous Gait Description Path Description Mild/moderate deviation Trunk Description Marked sway or uses aide Walking Stance Heels apart Scoring and Interpretation Tinetti Composite Score (points) 13 Interpretation of Scores High risk for falls(< 19) Tinetti Impairment Rating from Composite 40 to <60% Impaired (Score 12- Score 16) Estrella Fall Scale Copyright Permission PT-OP-E Functional Tests Start: 07/02/19 07:28 Freq: Status: Active Protocol: Document 07/02/19 14:34 AR (Rec: 07/02/19 15:57 AR [email or web address]) Functional Tests 6 Minute Walk Test Distance 250 ft Device Used LBQC Comments only able to complete 4 min 30 sec and needed to seated rest break. 3 LOB PT-OP-G Mobility & Gait Start: 07/02/19 07:28 Freq: Status: Active Protocol: Document 07/02/19 14:34 AR (Rec: 07/02/19 15:57 AR [email or web address]) OP Mobility Evaluation Transfers Sit to Stand Heavy use of LUE to push up from chair. Pt had some instability with rising from chair. OP Gait Assessment Gait Gait Assistance Required: Contact Guard Assist Distance (Feet) 250 Assistive Devices Assistive Device Large Based Quad Cane Orthotic/Prosthetic Devices or Brace: Yes Gait Deviations General Gait Pattern Decreased Stride Length, Decreased Feet Clearance Factors Limiting Gait Function Factors Limiting Gait Function Abnormal Tonal Influences, Decreased Activity Tolerance, Decreased Sensation,Decreased Strength,Incoordination, Limited Range of Motion,Pain, Poor Balance,Poor Safety Awareness Comments Gait Comments Pt had dec step length on L side d/t instability on RLE. Heavy leaning on LBQC for support, prabhu toward end of the 6MWT. Pt had 3 LOB but was able to catch himself before falling. One LOB d/t pt catching L toes (significant in-toeing on LLE). Other LOB seemed to be d/t weakness and fatigue of LLE. PT-OP-M Strength Start: 07/02/19 07:28 Freq: Status: Active Protocol: Document 07/02/19 14:34 AR (Rec: 07/02/19 15:57 AR [email or web address]) Hip Strength Hip Manual Muscle Testing Left Flexion (L2) 3- Fair- Right Flexion (L2) 3+ Fair+ Knee Strength Knee Manual Muscle Testing Left Flexion (S2) 4+ Good+ Extension (L3) 2- Poor- Comments Pt may have not understood instruction for knee flex testing. He was able to slide foot under chair with minimal use of LUE. Right Flexion (S2) 5 Normal Extension (L3) 5 Normal Ankle/Foot Strength Ankle and Foot Manual Muscle Testing Left Dorsiflexion (L4) 1 Trace Plantarflexion (S1) 3+ Fair+ Right Dorsiflexion (L4) 4 Good Plantarflexion (S1) 5 Normal Toe Strength Toe Manual Muscle Testing Right Great Toe Extension 1 Trace PT-OP-Q Treatments Start: 07/02/19 07:28 Freq: Status: Active Protocol: Document 07/13/19 15:44 AR (Rec: 07/13/19 15:59 AR [email or web address]) Cardio Equipment Recumbent Elliptical (BiodGengo) Duration (Minutes) 6 Resistance 2-3 Seat Position 10 Therapeutic Exercises Sitting Exercises LAQ Sitting Exercise Name LAQ Side right Resistance none Reps/Minutes 10 reps Comments added to HEP marches Sitting Exercise Name marches Side right Resistance 1# Equipment Used ankle weight Reps/Minutes 10 reps Comments added to HEP. Therapeutic Activity Therapeutic Activity sit to stand Name sit to stand Reps/Minutes 8 min Comments cued to bear equal weight into both LE, avoid knee valgus. pt used LUE to push up from chair. was prescribed to work on at home 10x every 2 hours with cueing form Neuro Re-Education Treatment Balance Activities carballo foam Details with balloon volley Equipment // bars Reps/Duration 4 min Comments pt cued to keep R knee in ext , bear equal weight into NBOS Details NBOS, with balloon volley Surface level Equipment // bars Reps/Duration 2 min Comments pt was not very challenged stagger stance Details stagger stance, eyes closed Surface level Equipment // bars Reps/Duration 3 min ea Comments pt was able to maintain balance with minimal sway, but reported feeling unstable PT-OP-T Assessment and Plan Start: 07/02/19 07:28 Freq: Status: Active Protocol: Document 07/13/19 15:44 AR (Rec: 07/13/19 15:59 AR [email or web address]) Physical Therapy Assessment Goals Tinnetti Impairment high fall risk Short Term Goal (STG) Pt will increase Tinnetti score to at least 17/28 in order to decrease fall risk to moderate. STG Duration 08/02/2019 Retirement Goal (LTG) Pt will increase Tinnetti score to at least 24/28 in order to decrease fall risk to low. LTG Duration 10/02/2019 6MWT Impairment dec amb speed Short Term Goal (STG) Pt will be able to walk for 6 minutes w/o seated rest break in order to improve ability to walk in the community with daughter. STG Duration 08/02/2019 Retirement Goal (LTG) Pt will be able to walk 300 ft in 6 minutes with use of LBQC and AFO and w/o seated rest break in order be able to grocery shop in smaller stores w daughter. LTG Duration 10/02/2019 Gait Impairment gait deviations Short Term Goal (STG) Pt will be able to amb for 20 ft with minimal in-toeing of LLE in order to reduce risk of falls. STG Duration 08/02/2019 Retirement Goal (LTG) Pt will be able to amb for 50 ft without leaning onto LBQC for heavy support in order to reduce fall risk. LTG Duration 10/02/2019 Assessment Summary Assessment Pt presents with R sided hemiplegia, which affects his standing balance and form with sit to stand. Pt was cued heavily to bear equal weight into both LE during standing, but pt was challenged by this. Seated LE strengthening exercises were performed toward end of session as pt was beginning to fatigue. Pt was able to maintain balance with all exercises today with minimal grabs for // bars, but he reported feeling unstable. Physical Therapy Plan Frequency and Duration Frequency of Treatment 1-2x/wk Duration of Treatment 3 months Plan of Care Start Date 07/02/19 Plan of Care End Date 10/02/19 Next Visit Focus/Plan Next Note Type Treatment Note Next Visit Plan gait training as tolerated, focus on dec in-toeing and inc stride length of LLE. progress balance training, LLE on unstable surface to inc WB into RLE. bed mobility
--- NOTE | 2019-07-15 16:42 | PT.OTN ---
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 (07/15/19) Weakness (07/15/19) History of falling (07/15/19) Physical Therapy Treatment Note PT-OP-A Visit Information Start: 07/02/19 07:28 Freq: Status: Active Protocol: Document 07/15/19 15:23 AR (Rec: 07/15/19 15:49 AR [id number]) Out-Patient Physical Therapy Visit Information Visit Information Visit Type Treatment Note Visit Start Time 13:45 Visit Stop Time 14:25 Total Visit Minutes 40 Visit Number 3 Number of [employer] Visits 0 PT-OP-B Current Condition Start: 07/02/19 07:28 Freq: Status: Active Protocol: Document 07/02/19 14:34 AR (Rec: 07/02/19 15:57 AR [email or web address]) Current Condition History of Current Condition Onset Date CVA in 2013. Falls x3 & hospitalization 06/22/19 Current Complaints dec activitiy tolerance, poor balance, dec amb speed History of Current Condition Pt is a 63 y.o. 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 Pt has been seen at [facility] OP for PT, OT, ST over the past few years. He was recently hospitalized ( 06/22/19) for 3 falls in the same day. One fall occured in the shower and 2 occured getting out of bed. Since recent hospitalization, daughter reports she has seen a decline in his function in dec cognitive processing. Pt has dec stamina with walking, is more unstable on his feet, has been shuffling more and appears to have less coordination. Daughter carlos he fell on 06/22/19 was due to pain in his LLE (from RA). Pt reports no sensation on RLE. He has a hx of Rhemuatoid Arthritis, blood clots, depression, diabetes mellitus I, falls, depression, heart attack, pacemaker, neuropathy, and R elbow surgery. Pt amb w a large base quad cane and DF assist AFO. Pt has had multiple falls prior to most recent hospitalization that normally occur with transitional movements like getting out of bed or into a car, prabhu when he is tired. There is an incline and gravel on their driveway which his daughter believes may be contributing to the falls with car transfers. Pt has required 24/7 caregiving since his CVA in 2013, which is provided by his daughter during the daytime and his at nighttime. Prior Treatments and Tests PT, OT, ST. Has seen improvements with PT, but discontinued d/t plateauing of function. Future Testing and Treatments Planned OT at [facility], pt is on waiting list Treatment Goals Patient/Caregiver Goals To improve walking endurance, balance and to decrease fall risk. Prior Functional Status Baseline Function- ADL's Needs Assist Baseline Function- Mobility Needs Assist Baseline Function- Gait LBQC, AFO Baseline Function- Work/School NA Baseline Function- Recreation/Hobbies Able to ride in car with his daughter to drop of grandchildren at school. Able to amb short distances in the community w/LBQC. Able to use motorized carts at larger stores PT-OP-C Subjective Start: 07/02/19 07:28 Freq: Status: Active Protocol: Document 07/15/19 15:23 AR (Rec: 07/15/19 15:49 AR [id number]) OP-PT Subjective Patient Comments Patient Comments Pt was happy to work on gait today. He has not been compliant with HEP. Daughter states he has been about the same/no change since last visit. PT-OP-D Balance Start: 07/02/19 07:28 Freq: Status: Active Protocol: Document 07/02/19 14:34 AR (Rec: 07/02/19 15:57 AR [email or web address]) OP-PT Balance Assessment Sitting Balance Static Sitting Balance Ability Normal Standing Balance Static Standing Balance Ability Fair Device Used none Standing Balance Comments Fair standing balance with LBQC near by Tinetti Balance Assessment Sitting Balance Sitting Balance Steady, safe Arising from Chair Ability to Arise Able, uses arms to help Attempts to Arise Able, requires >1 attempt Standing Balance Immediate Standing Balance Steady with support Standing Balance Steady, wide stance Nudged Response Staggers, catches self Standing with Eyes Closed Steady Turning Step Pattern Turning 360 Degrees Discontinuous steps Stability Turning 360 Degrees Unsteady, grabs/staggers Sitting Down Sitting Down Uses arms or unsteady Gait and Step Initiation of Gait Hesitancy, mult. attempts Right Foot Step Length Does pass stance foot Right Foot Step Height Completely clears floor Left Foot Step Length Does not pass stance foot Left Foot Step Height Completely clears floor Step Description Step Symmetry Step length not equal Step Continuity Steps appear continuous Gait Description Path Description Mild/moderate deviation Trunk Description Marked sway or uses aide Walking Stance Heels apart Scoring and Interpretation Tinetti Composite Score (points) 13 Interpretation of Scores High risk for falls(< 19) Tinetti Impairment Rating from Composite 40 to <60% Impaired (Score 12- Score 16) Estrella Fall Scale Copyright Permission PT-OP-E Functional Tests Start: 07/02/19 07:28 Freq: Status: Active Protocol: Document 07/02/19 14:34 AR (Rec: 07/02/19 15:57 AR [email or web address]) Functional Tests 6 Minute Walk Test Distance 250 ft Device Used LBQC Comments only able to complete 4 min 30 sec and needed to seated rest break. 3 LOB PT-OP-G Mobility & Gait Start: 07/02/19 07:28 Freq: Status: Active Protocol: Document 07/02/19 14:34 AR (Rec: 07/02/19 15:57 AR [email or web address]) OP Mobility Evaluation Transfers Sit to Stand Heavy use of LUE to push up from chair. Pt had some instability with rising from chair. OP Gait Assessment Gait Gait Assistance Required: Contact Guard Assist Distance (Feet) 250 Assistive Devices Assistive Device Large Based Quad Cane Orthotic/Prosthetic Devices or Brace: Yes Gait Deviations General Gait Pattern Decreased Stride Length, Decreased Feet Clearance Factors Limiting Gait Function Factors Limiting Gait Function Abnormal Tonal Influences, Decreased Activity Tolerance, Decreased Sensation,Decreased Strength,Incoordination, Limited Range of Motion,Pain, Poor Balance,Poor Safety Awareness Comments Gait Comments Pt had dec step length on L side d/t instability on RLE. Heavy leaning on LBQC for support, prabhu toward end of the 6MWT. Pt had 3 LOB but was able to catch himself before falling. One LOB d/t pt catching L toes (significant in-toeing on LLE). Other LOB seemed to be d/t weakness and fatigue of LLE. PT-OP-M Strength Start: 07/02/19 07:28 Freq: Status: Active Protocol: Document 07/02/19 14:34 AR (Rec: 07/02/19 15:57 AR [email or web address]) Hip Strength Hip Manual Muscle Testing Left Flexion (L2) 3- Fair- Right Flexion (L2) 3+ Fair+ Knee Strength Knee Manual Muscle Testing Left Flexion (S2) 4+ Good+ Extension (L3) 2- Poor- Comments Pt may have not understood instruction for knee flex testing. He was able to slide foot under chair with minimal use of LUE. Right Flexion (S2) 5 Normal Extension (L3) 5 Normal Ankle/Foot Strength Ankle and Foot Manual Muscle Testing Left Dorsiflexion (L4) 1 Trace Plantarflexion (S1) 3+ Fair+ Right Dorsiflexion (L4) 4 Good Plantarflexion (S1) 5 Normal Toe Strength Toe Manual Muscle Testing Right Great Toe Extension 1 Trace PT-OP-Q Treatments Start: 07/02/19 07:28 Freq: Status: Active Protocol: Document 07/15/19 15:23 AR (Rec: 07/15/19 15:49 AR [id number]) Gait Training Gait Activity gait Description gait Device Used LBQC Level of Assistance CGA Surface level Distance/Duration [id number] Treatment Focus even step length, dec in- toeing of LLE, improve heel strike of RLE Comments pt needed a seated rest break in between laps. was able to correct deviations well with cueing (aside from heel strike with RLE) Neuro Re-Education Treatment Balance Activities step ups Details step ups Equipment 2 step Reps/Duration 10 reps Comments pt had difficulty tapping toes , stepped onto step multiple times hurdles Details stepping over hurdles (SLS) Equipment 6 hurdles, flipped to lowest setting. // bars Reps/Duration 2x10 feet Comments pt hesitant to WB on RLE. caught/stepped on hurdles 5-6 x throughout. was cued to lift R toes to be able to clear marlen seated balance Details seated on katelynn disc w marches, LAQ Surface yellow katelynn disc on chair Reps/Duration marches: 10 ea, LAQ: 2x5 ea stagger stance Details stagger stance w balloon volley w granddaughter Surface level Equipment chair behind pt Reps/Duration 4 min ea Comments pt was able to maintain balance with no to minimal sway, but reported feeling unstable. pt did not want to move feet into tandem stance d /t feeling unstable PT-OP-T Assessment and Plan Start: 07/02/19 07:28 Freq: Status: Active Protocol: Document 07/15/19 15:23 AR (Rec: 07/15/19 15:49 AR [id number]) Physical Therapy Assessment Goals Tinnetti Impairment high fall risk Short Term Goal (STG) Pt will increase Tinnetti score to at least 17/28 in order to decrease fall risk to moderate. STG Duration 08/02/2019 Penitentiary Goal (LTG) Pt will increase Tinnetti score to at least 24/28 in order to decrease fall risk to low. LTG Duration 10/02/2019 6MWT Impairment dec amb speed Short Term Goal (STG) Pt will be able to walk for 6 minutes w/o seated rest break in order to improve ability to walk in the community with daughter. STG Duration 08/02/2019 Monotype Mechanic Goal (LTG) Pt will be able to walk 300 ft in 6 minutes with use of LBQC and AFO and w/o seated rest break in order be able to grocery shop in smaller stores w daughter. LTG Duration 10/02/2019 Gait Impairment gait deviations Short Term Goal (STG) Pt will be able to amb for 20 ft with minimal in-toeing of LLE in order to reduce risk of falls. STG Duration 08/02/2019 Penitentiary Goal (LTG) Pt will be able to amb for 50 ft without leaning onto LBQC for heavy support in order to reduce fall risk. LTG Duration 10/02/2019 Assessment Summary Assessment Pt's BP was taken during end of session because pt reported feeling lightheaded/dizzy. BP was 110/78. Pt was able to dec in-toeing of LLE and inc stride length to be more even on R and L with cueing, but quickly went back to gait deviations after 5-6 steps. Pt is very fearful of falling/ feeling off balance and this seems to limit his balance more that visible instability. He refused to let go of cane when standing in tandem stance d/t fear of instability. Pt was able to reach slightly outside limits of stability with balloon volley, but was very stiff during exercise. Pt was educated on relevance of marlen exercise to help prevent catching his foot at home/avoiding a fall. Physical Therapy Plan Frequency and Duration Frequency of Treatment 1-2x/wk Duration of Treatment 3 months Plan of Care Start Date 07/02/19 Plan of Care End Date 10/02/19 Next Visit Focus/Plan Next Note Type Treatment Note Next Visit Plan cont gait training, focus on dec in-toeing and inc stride length of LLE. standing balance in // bars with NBOS, tandem, LLE on unstable surface.
--- NOTE | 2019-07-20 18:27 | PT.OTN ---
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 (07/20/19) Weakness (07/20/19) History of falling (07/20/19) Physical Therapy Treatment Note PT-OP-A Visit Information Start: 07/02/19 07:28 Freq: Status: Active Protocol: Document 07/20/19 13:00 AR (Rec: 07/20/19 15:22 AR [email or web address]) Out-Patient Physical Therapy Visit Information Visit Information Visit Type Treatment Note Visit Start Time 13:05 Visit Stop Time 13:43 Total Visit Minutes 38 Visit Number 4 PT-OP-B Current Condition Start: 07/02/19 07:28 Freq: Status: Active Protocol: Document 07/02/19 14:34 AR (Rec: 07/02/19 15:57 AR [email or web address]) Current Condition History of Current Condition Onset Date CVA in 2013. Falls x3 & hospitalization 06/22/19 Current Complaints dec activitiy tolerance, poor balance, dec amb speed History of Current Condition Pt is a 63 y.o. 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 Pt has been seen at [facility] OP for PT, OT, ST over the past few years. He was recently hospitalized ( 06/22/19) for 3 falls in the same day. One fall occured in the shower and 2 occured getting out of bed. Since recent hospitalization, daughter reports she has seen a decline in his function in dec cognitive processing. Pt has dec stamina with walking, is more unstable on his feet, has been shuffling more and appears to have less coordination. Daughter saraives he fell on 06/22/19 was due to pain in his LLE (from RA). Pt reports no sensation on RLE. He has a hx of Rhemuatoid Arthritis, blood clots, depression, diabetes mellitus I, falls, depression, heart attack, pacemaker, neuropathy, and R elbow surgery. Pt amb w a large base quad cane and DF assist AFO. Pt has had multiple falls prior to most recent hospitalization that normally occur with transitional movements like getting out of bed or into a car, prabhu when he is tired. There is an incline and gravel on their driveway which his daughter believes may be contributing to the falls with car transfers. Pt has required 24/7 caregiving since his CVA in 2013, which is provided by his daughter during the daytime and his at nighttime. Prior Treatments and Tests PT, OT, ST. Has seen improvements with PT, but discontinued d/t plateauing of function. Future Testing and Treatments Planned OT at [facility], pt is on waiting list Treatment Goals Patient/Caregiver Goals To improve walking endurance, balance and to decrease fall risk. Prior Functional Status Baseline Function- ADL's Needs Assist Baseline Function- Mobility Needs Assist Baseline Function- Gait LBQC, AFO Baseline Function- Work/School NA Baseline Function- Recreation/Hobbies Able to ride in car with his daughter to drop of grandchildren at school. Able to amb short distances in the community w/LBQC. Able to use motorized carts at larger stores PT-OP-C Subjective Start: 07/02/19 07:28 Freq: Status: Active Protocol: Document 07/20/19 13:00 AR (Rec: 07/20/19 15:22 AR [email or web address]) OP-PT Subjective Patient Comments Patient Comments Pt arrived 5 minutes late and needed to use the bathroom upon entering clinic. PT-OP-D Balance Start: 07/02/19 07:28 Freq: Status: Active Protocol: Document 07/02/19 14:34 AR (Rec: 07/02/19 15:57 AR [email or web address]) OP-PT Balance Assessment Sitting Balance Static Sitting Balance Ability Normal Standing Balance Static Standing Balance Ability Fair Device Used none Standing Balance Comments Fair standing balance with LBQC near by Tinetti Balance Assessment Sitting Balance Sitting Balance Steady, safe Arising from Chair Ability to Arise Able, uses arms to help Attempts to Arise Able, requires >1 attempt Standing Balance Immediate Standing Balance Steady with support Standing Balance Steady, wide stance Nudged Response Staggers, catches self Standing with Eyes Closed Steady Turning Step Pattern Turning 360 Degrees Discontinuous steps Stability Turning 360 Degrees Unsteady, grabs/staggers Sitting Down Sitting Down Uses arms or unsteady Gait and Step Initiation of Gait Hesitancy, mult. attempts Right Foot Step Length Does pass stance foot Right Foot Step Height Completely clears floor Left Foot Step Length Does not pass stance foot Left Foot Step Height Completely clears floor Step Description Step Symmetry Step length not equal Step Continuity Steps appear continuous Gait Description Path Description Mild/moderate deviation Trunk Description Marked sway or uses aide Walking Stance Heels apart Scoring and Interpretation Tinetti Composite Score (points) 13 Interpretation of Scores High risk for falls(< 19) Tinetti Impairment Rating from Composite 40 to <60% Impaired (Score 12- Score 16) Estrella Fall Scale Copyright Permission PT-OP-E Functional Tests Start: 07/02/19 07:28 Freq: Status: Active Protocol: Document 07/02/19 14:34 AR (Rec: 07/02/19 15:57 AR [email or web address]) Functional Tests 6 Minute Walk Test Distance 250 ft Device Used LBQC Comments only able to complete 4 min 30 sec and needed to seated rest break. 3 LOB PT-OP-G Mobility & Gait Start: 07/02/19 07:28 Freq: Status: Active Protocol: Document 07/02/19 14:34 AR (Rec: 07/02/19 15:57 AR [email or web address]) OP Mobility Evaluation Transfers Sit to Stand Heavy use of LUE to push up from chair. Pt had some instability with rising from chair. OP Gait Assessment Gait Gait Assistance Required: Contact Guard Assist Distance (Feet) 250 Assistive Devices Assistive Device Large Based Quad Cane Orthotic/Prosthetic Devices or Brace: Yes Gait Deviations General Gait Pattern Decreased Stride Length, Decreased Feet Clearance Factors Limiting Gait Function Factors Limiting Gait Function Abnormal Tonal Influences, Decreased Activity Tolerance, Decreased Sensation,Decreased Strength,Incoordination, Limited Range of Motion,Pain, Poor Balance,Poor Safety Awareness Comments Gait Comments Pt had dec step length on L side d/t instability on RLE. Heavy leaning on LBQC for support, prabhu toward end of the 6MWT. Pt had 3 LOB but was able to catch himself before falling. One LOB d/t pt catching L toes (significant in-toeing on LLE). Other LOB seemed to be d/t weakness and fatigue of LLE. PT-OP-M Strength Start: 07/02/19 07:28 Freq: Status: Active Protocol: Document 07/02/19 14:34 AR (Rec: 07/02/19 15:57 AR [email or web address]) Hip Strength Hip Manual Muscle Testing Left Flexion (L2) 3- Fair- Right Flexion (L2) 3+ Fair+ Knee Strength Knee Manual Muscle Testing Left Flexion (S2) 4+ Good+ Extension (L3) 2- Poor- Comments Pt may have not understood instruction for knee flex testing. He was able to slide foot under chair with minimal use of LUE. Right Flexion (S2) 5 Normal Extension (L3) 5 Normal Ankle/Foot Strength Ankle and Foot Manual Muscle Testing Left Dorsiflexion (L4) 1 Trace Plantarflexion (S1) 3+ Fair+ Right Dorsiflexion (L4) 4 Good Plantarflexion (S1) 5 Normal Toe Strength Toe Manual Muscle Testing Right Great Toe Extension 1 Trace PT-OP-Q Treatments Start: 07/02/19 07:28 Freq: Status: Active Protocol: Document 07/20/19 13:00 AR (Rec: 07/20/19 16:55 AR [email or web address]) Therapeutic Activity Therapeutic Activity sit to stand Name sit to stand Reps/Minutes 5 min Comments reviewed from HEP, pt's stated he has been performing them at home. cued to control descent Gait Training Gait Activity gait Description gait Device Used LBQC Level of Assistance CGA Surface level Distance/Duration 250 ft Treatment Focus even step length Comments pt needed a seated rest break after 1 lap. was able to correct deviations well with cueing for a few steps, but required frequent reminders to take even steps Neuro Re-Education Treatment Balance Activities seated balance Details seated on katelynn disc w marches, LAQ, reaching Surface yellow katelynn disc on chair Reps/Duration marches: 10 ea, LAQ: 2x5 ea, 6 min reaching Comments pt had a lot of difficulty reaching outside limits of stability. He was hesitant to reach any amount that required trunk lean/movement NBOS Details NBOS, with balloon volley Surface level Equipment // bars Comments pt was not very challenged stagger stance Details stagger stance w RLE on blue therapad Surface unstable (RLE) Equipment chair behind pt, // bars Reps/Duration 3 min ea Comments pt was able to maintain balance with no to minimal sway, but reported feeling unstable. pt did not want to move feet into tandem stance d /t feeling unstable PT-OP-T Assessment and Plan Start: 07/02/19 07:28 Freq: Status: Active Protocol: Document 07/20/19 13:00 AR (Rec: 07/20/19 17:02 AR [email or web address]) Physical Therapy Assessment Goals Tinnetti Impairment high fall risk Short Term Goal (STG) Pt will increase Tinnetti score to at least 17/28 in order to decrease fall risk to moderate. STG Duration 08/02/2019 Longterm Goal (LTG) Pt will increase Tinnetti score to at least 24/28 in order to decrease fall risk to low. LTG Duration 10/02/2019 6MWT Impairment dec amb speed Short Term Goal (STG) Pt will be able to walk for 6 minutes w/o seated rest break in order to improve ability to walk in the community with daughter. STG Duration 08/02/2019 Contract Administration Manager Goal (LTG) Pt will be able to walk 300 ft in 6 minutes with use of LBQC and AFO and w/o seated rest break in order be able to grocery shop in smaller stores w daughter. LTG Duration 10/02/2019 Gait Impairment gait deviations Short Term Goal (STG) Pt will be able to amb for 20 ft with minimal in-toeing of LLE in order to reduce risk of falls. STG Duration 08/02/2019 Contract Administration Manager Goal (LTG) Pt will be able to amb for 50 ft without leaning onto LBQC for heavy support in order to reduce fall risk. LTG Duration 10/02/2019 Assessment Summary Assessment Pt was able to increase step length of RLE with cueing, but was unable to maintain without frequent reminders. He presents with dec eccentric control with sitting, which should continue to be addressed for safety reasons. Pt has not been compliant with seated HEP exercises and he and his were encouraged to perform them to strengthen LE for more functional tasks like walking, STS and car transfers. Physical Therapy Plan Frequency and Duration Frequency of Treatment 1-2x/wk Duration of Treatment 3 months Plan of Care Start Date 07/02/19 Plan of Care End Date 10/02/19 Next Visit Focus/Plan Next Note Type Treatment Note Next Visit Plan cont gait training, focus on dec in-toeing and inc stride length of LLE. increase or adjust HEP as necessary to be more functional exercises if safe. standing balance in // bars with NBOS, tandem, LLE on unstable surface.
--- NOTE | 2019-07-27 13:44 | PT.OTN ---
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 (07/27/19) Weakness (07/27/19) History of falling (07/27/19) Physical Therapy Treatment Note PT-OP-A Visit Information Start: 07/02/19 07:28 Freq: Status: Active Protocol: Document 07/27/19 12:56 LR (Rec: 07/27/19 13:44 [facility] [id number]) Out-Patient Physical Therapy Visit Information Visit Information Visit Type Treatment Note Visit Start Time 13:00 Visit Stop Time 13:40 Total Visit Minutes 40 Visit Number 5 Number of CONTRACT AGENT Visits 0 PT-OP-B Current Condition Start: 07/02/19 07:28 Freq: Status: Active Protocol: Document 07/02/19 14:34 AR (Rec: 07/02/19 15:57 AR [email or web address]) Current Condition History of Current Condition Onset Date CVA in 2013. Falls x3 & hospitalization 06/22/19 Current Complaints dec activitiy tolerance, poor balance, dec amb speed History of Current Condition Pt is a 63 y.o. 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 Pt has been seen at [facility] OP for PT, OT, ST over the past few years. He was recently hospitalized ( 06/22/19) for 3 falls in the same day. One fall occured in the shower and 2 occured getting out of bed. Since recent hospitalization, daughter reports she has seen a decline in his function in dec cognitive processing. Pt has dec stamina with walking, is more unstable on his feet, has been shuffling more and appears to have less coordination. Daughter saraives he fell on 06/22/19 was due to pain in his LLE (from RA). Pt reports no sensation on RLE. He has a hx of Rhemuatoid Arthritis, blood clots, depression, diabetes mellitus I, falls, depression, heart attack, pacemaker, neuropathy, and R elbow surgery. Pt amb w a large base quad cane and DF assist AFO. Pt has had multiple falls prior to most recent hospitalization that normally occur with transitional movements like getting out of bed or into a car, prabhu when he is tired. There is an incline and gravel on their driveway which his daughter believes may be contributing to the falls with car transfers. Pt has required 24/ caregiving since his CVA in 2013, which is provided by his daughter during the daytime and his at nighttime. Prior Treatments and Tests PT, OTST. Has seen improvements with PT, but discontinued d/t plateauing of function. Future Testing and Treatments Planned OT at [facility], pt is on waiting list Treatment Goals Patient/Caregiver Goals To improve walking endurance, balance and to decrease fall risk. Prior Functional Status Baseline Function- ADL's Needs Assist Baseline Function- Mobility Needs Assist Baseline Function- Gait LBQC, AFO Baseline Function- Work/School NA Baseline Function- Recreation/Hobbies Able to ride in car with his daughter to drop of grandchildren at school. Able to amb short distances in the community w/LBQC. Able to use motorized carts at larger stores PT-OP-C Subjective Start: 07/02/19 07:28 Freq: Status: Active Protocol: Document 07/27/19 12:56 [facility] (Rec: 07/27/19 13:44 [facility] [id number]) OP-PT Subjective Patient Comments Patient Comments Pt reports he is not doing HEP PT-OP-D Balance Start: 07/02/19 07:28 Freq: Status: Active Protocol: Document 07/02/19 14:34 AR (Rec: 07/02/19 15:57 AR [email or web address]) OP-PT Balance Assessment Sitting Balance Static Sitting Balance Ability Normal Standing Balance Static Standing Balance Ability Fair Device Used none Standing Balance Comments Fair standing balance with LBQC near by Tinetti Balance Assessment Sitting Balance Sitting Balance Steady, safe Arising from Chair Ability to Arise Able, uses arms to help Attempts to Arise Able, requires >1 attempt Standing Balance Immediate Standing Balance Steady with support Standing Balance Steady, wide stance Nudged Response Staggers, catches self Standing with Eyes Closed Steady Turning Step Pattern Turning 360 Degrees Discontinuous steps Stability Turning 360 Degrees Unsteady, grabs/staggers Sitting Down Sitting Down Uses arms or unsteady Gait and Step Initiation of Gait Hesitancy, mult. attempts Right Foot Step Length Does pass stance foot Right Foot Step Height Completely clears floor Left Foot Step Length Does not pass stance foot Left Foot Step Height Completely clears floor Step Description Step Symmetry Step length not equal Step Continuity Steps appear continuous Gait Description Path Description Mild/moderate deviation Trunk Description Marked sway or uses aide Walking Stance Heels apart Scoring and Interpretation Tinetti Composite Score (points) 13 Interpretation of Scores High risk for falls(< 19) Tinetti Impairment Rating from Composite 40 to <60% Impaired (Score 12- Score 16) Estrella Fall Scale Copyright Permission PT-OP-E Functional Tests Start: 07/02/19 07:28 Freq: Status: Active Protocol: Document 07/02/19 14:34 AR (Rec: 07/02/19 15:57 AR [email or web address]) Functional Tests 6 Minute Walk Test Distance 250 ft Device Used LBQC Comments only able to complete 4 min 30 sec and needed to seated rest break. 3 LOB PT-OP-G Mobility & Gait Start: 07/02/19 07:28 Freq: Status: Active Protocol: Document 07/02/19 14:34 AR (Rec: 07/02/19 15:57 AR [email or web address]) OP Mobility Evaluation Transfers Sit to Stand Heavy use of LUE to push up from chair. Pt had some instability with rising from chair. OP Gait Assessment Gait Gait Assistance Required: Contact Guard Assist Distance (Feet) 250 Assistive Devices Assistive Device Large Based Quad Cane Orthotic/Prosthetic Devices or Brace: Yes Gait Deviations General Gait Pattern Decreased Stride Length, Decreased Feet Clearance Factors Limiting Gait Function Factors Limiting Gait Function Abnormal Tonal Influences, Decreased Activity Tolerance, Decreased Sensation,Decreased Strength,Incoordination, Limited Range of Motion,Pain, Poor Balance,Poor Safety Awareness Comments Gait Comments Pt had dec step length on L side d/t instability on RLE. Heavy leaning on LBQC for support, prabhu toward end of the 6MWT. Pt had 3 LOB but was able to catch himself before falling. One LOB d/t pt catching L toes (significant in-toeing on LLE). Other LOB seemed to be d/t weakness and fatigue of LLE. PT-OP-M Strength Start: 07/02/19 07:28 Freq: Status: Active Protocol: Document 07/02/19 14:34 AR (Rec: 07/02/19 15:57 AR [email or web address]) Hip Strength Hip Manual Muscle Testing Left Flexion (L2) 3- Fair- Right Flexion (L2) 3+ Fair+ Knee Strength Knee Manual Muscle Testing Left Flexion (S2) 4+ Good+ Extension (L3) 2- Poor- Comments Pt may have not understood instruction for knee flex testing. He was able to slide foot under chair with minimal use of LUE. Right Flexion (S2) 5 Normal Extension (L3) 5 Normal Ankle/Foot Strength Ankle and Foot Manual Muscle Testing Left Dorsiflexion (L4) 1 Trace Plantarflexion (S1) 3+ Fair+ Right Dorsiflexion (L4) 4 Good Plantarflexion (S1) 5 Normal Toe Strength Toe Manual Muscle Testing Right Great Toe Extension 1 Trace PT-OP-Q Treatments Start: 07/02/19 07:28 Freq: Status: Active Protocol: Document 07/27/19 12:56 [facility] (Rec: 07/27/19 13:44 [facility] [id number]) Cardio Equipment Recumbent Stepper (Sci-Fit) Duration (Minutes) 5 Resistance 3 Seat Position 12 Gym Equipment Shuttle Balance blue clips Details WBOS & NBOS Therapeutic Exercises Sitting Exercises DF Side bilateral Reps/Minutes 10 ea LAQ Side bilateral Reps/Minutes 10 ea marches Side bilateral Reps/Minutes 10 ea Gait Training Gait Activity gait Description gait Device Used LBQC Level of Assistance SBA Surface level Treatment Focus even step length Neuro Re-Education Treatment Balance Activities side steps Details [address] stagger stance Details stagger stance w LLE on black & R on blue tpad Equipment by //bars Comments balance with head turns when pt felt stable enough PT-OP-T Assessment and Plan Start: 07/02/19 07:28 Freq: Status: Active Protocol: Document 07/27/19 12:56 [facility] (Rec: 07/27/19 13:44 [facility] [id number]) Physical Therapy Assessment Goals Tinnetti Impairment high fall risk Short Term Goal (STG) Pt will increase Tinnetti score to at least 17/28 in order to decrease fall risk to moderate. STG Duration 08/02/2019 Residential Goal (LTG) Pt will increase Tinnetti score to at least 24/28 in order to decrease fall risk to low. LTG Duration 10/02/2019 6MWT Impairment dec amb speed Short Term Goal (STG) Pt will be able to walk for 6 minutes w/o seated rest break in order to improve ability to walk in the community with daughter. STG Duration 08/02/2019 Residential Goal (LTG) Pt will be able to walk 300 ft in 6 minutes with use of LBQC and AFO and w/o seated rest break in order be able to grocery shop in smaller stores w daughter. LTG Duration 10/02/2019 Gait Impairment gait deviations Short Term Goal (STG) Pt will be able to amb for 20 ft with minimal in-toeing of LLE in order to reduce risk of falls. STG Duration 08/02/2019 Residential Goal (LTG) Pt will be able to amb for 50 ft without leaning onto LBQC for heavy support in order to reduce fall risk. LTG Duration 10/02/2019 Assessment Summary Assessment Pt encouraged to work on exercises at home as he is not currently. pt has low stamina of exercise in standing so seated exercises done in between. Physical Therapy Plan Frequency and Duration Frequency of Treatment 1-2x/wk Duration of Treatment 3 months Plan of Care Start Date 07/02/19 Plan of Care End Date 10/02/19 Next Visit Focus/Plan Next Note Type Treatment Note Next Visit Plan Standing balance exercises progression
--- NOTE | 2019-08-03 15:59 | PT.OTN ---
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 (08/03/19) Weakness (08/03/19) History of falling (08/03/19) Physical Therapy Treatment Note PT-OP-A Visit Information Start: 07/02/19 07:28 Freq: Status: Active Protocol: Document 08/03/19 15:16 LR (Rec: 08/03/19 15:59 [facility] [id number]) Out-Patient Physical Therapy Visit Information Visit Information Visit Type Treatment Note Visit Start Time 15:14 Visit Stop Time 15:55 Total Visit Minutes 41 Visit Number 6 Number of PHOTOENGRAVING ETCHER Visits 0 PT-OP-B Current Condition Start: 07/02/19 07:28 Freq: Status: Active Protocol: Document 07/02/19 14:34 AR (Rec: 07/02/19 15:57 AR [email or web address]) Current Condition History of Current Condition Onset Date CVA in 2013. Falls x3 & hospitalization 06/22/19 Current Complaints dec activitiy tolerance, poor balance, dec amb speed History of Current Condition Pt is a 63 y.o. 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 Pt has been seen at [facility] OP for PT, OT, ST over the past few years. He was recently hospitalized ( 06/22/19) for 3 falls in the same day. One fall occured in the shower and 2 occured getting out of bed. Since recent hospitalization, daughter reports she has seen a decline in his function in dec cognitive processing. Pt has dec stamina with walking, is more unstable on his feet, has been shuffling more and appears to have less coordination. Daughter saraives he fell on 06/22/19 was due to pain in his LLE (from RA). Pt reports no sensation on RLE. He has a hx of Rhemuatoid Arthritis, blood clots, depression, diabetes mellitus I, falls, depression, heart attack, pacemaker, neuropathy, and R elbow surgery. Pt amb w a large base quad cane and DF assist AFO. Pt has had multiple falls prior to most recent hospitalization that normally occur with transitional movements like getting out of bed or into a car, prabhu when he is tired. There is an incline and gravel on their driveway which his daughter believes may be contributing to the falls with car transfers. Pt has required 24/ caregiving since his CVA in 2013, which is provided by his daughter during the daytime and his at nighttime. Prior Treatments and Tests PT, OTST. Has seen improvements with PT, but discontinued d/t plateauing of function. Future Testing and Treatments Planned OT at [facility], pt is on waiting list Treatment Goals Patient/Caregiver Goals To improve walking endurance, balance and to decrease fall risk. Prior Functional Status Baseline Function- ADL's Needs Assist Baseline Function- Mobility Needs Assist Baseline Function- Gait LBQC, AFO Baseline Function- Work/School NA Baseline Function- Recreation/Hobbies Able to ride in car with his daughter to drop of grandchildren at school. Able to amb short distances in the community w/LBQC. Able to use motorized carts at larger stores PT-OP-C Subjective Start: 07/02/19 07:28 Freq: Status: Active Protocol: Document 08/03/19 15:16 [facility] (Rec: 08/03/19 15:59 [facility] [id number]) OP-PT Subjective Patient Comments Patient Comments reports pt was sore yesterday in L side d/t arthritis. PT-OP-D Balance Start: 07/02/19 07:28 Freq: Status: Active Protocol: Document 07/02/19 14:34 AR (Rec: 07/02/19 15:57 AR [email or web address]) OP-PT Balance Assessment Sitting Balance Static Sitting Balance Ability Normal Standing Balance Static Standing Balance Ability Fair Device Used none Standing Balance Comments Fair standing balance with LBQC near by Tinetti Balance Assessment Sitting Balance Sitting Balance Steady, safe Arising from Chair Ability to Arise Able, uses arms to help Attempts to Arise Able, requires >1 attempt Standing Balance Immediate Standing Balance Steady with support Standing Balance Steady, wide stance Nudged Response Staggers, catches self Standing with Eyes Closed Steady Turning Step Pattern Turning 360 Degrees Discontinuous steps Stability Turning 360 Degrees Unsteady, grabs/staggers Sitting Down Sitting Down Uses arms or unsteady Gait and Step Initiation of Gait Hesitancy, mult. attempts Right Foot Step Length Does pass stance foot Right Foot Step Height Completely clears floor Left Foot Step Length Does not pass stance foot Left Foot Step Height Completely clears floor Step Description Step Symmetry Step length not equal Step Continuity Steps appear continuous Gait Description Path Description Mild/moderate deviation Trunk Description Marked sway or uses aide Walking Stance Heels apart Scoring and Interpretation Tinetti Composite Score (points) 13 Interpretation of Scores High risk for falls(< 19) Tinetti Impairment Rating from Composite 40 to <60% Impaired (Score 12- Score 16) Estrella Fall Scale Copyright Permission PT-OP-E Functional Tests Start: 07/02/19 07:28 Freq: Status: Active Protocol: Document 07/02/19 14:34 AR (Rec: 07/02/19 15:57 AR [email or web address]) Functional Tests 6 Minute Walk Test Distance 250 ft Device Used LBQC Comments only able to complete 4 min 30 sec and needed to seated rest break. 3 LOB PT-OP-G Mobility & Gait Start: 07/02/19 07:28 Freq: Status: Active Protocol: Document 07/02/19 14:34 AR (Rec: 07/02/19 15:57 AR [email or web address]) OP Mobility Evaluation Transfers Sit to Stand Heavy use of LUE to push up from chair. Pt had some instability with rising from chair. OP Gait Assessment Gait Gait Assistance Required: Contact Guard Assist Distance (Feet) 250 Assistive Devices Assistive Device Large Based Quad Cane Orthotic/Prosthetic Devices or Brace: Yes Gait Deviations General Gait Pattern Decreased Stride Length, Decreased Feet Clearance Factors Limiting Gait Function Factors Limiting Gait Function Abnormal Tonal Influences, Decreased Activity Tolerance, Decreased Sensation,Decreased Strength,Incoordination, Limited Range of Motion,Pain, Poor Balance,Poor Safety Awareness Comments Gait Comments Pt had dec step length on L side d/t instability on RLE. Heavy leaning on LBQC for support, prabhu toward end of the 6MWT. Pt had 3 LOB but was able to catch himself before falling. One LOB d/t pt catching L toes (significant in-toeing on LLE). Other LOB seemed to be d/t weakness and fatigue of LLE. PT-OP-M Strength Start: 07/02/19 07:28 Freq: Status: Active Protocol: Document 07/02/19 14:34 AR (Rec: 07/02/19 15:57 AR [email or web address]) Hip Strength Hip Manual Muscle Testing Left Flexion (L2) 3- Fair- Right Flexion (L2) 3+ Fair+ Knee Strength Knee Manual Muscle Testing Left Flexion (S2) 4+ Good+ Extension (L3) 2- Poor- Comments Pt may have not understood instruction for knee flex testing. He was able to slide foot under chair with minimal use of LUE. Right Flexion (S2) 5 Normal Extension (L3) 5 Normal Ankle/Foot Strength Ankle and Foot Manual Muscle Testing Left Dorsiflexion (L4) 1 Trace Plantarflexion (S1) 3+ Fair+ Right Dorsiflexion (L4) 4 Good Plantarflexion (S1) 5 Normal Toe Strength Toe Manual Muscle Testing Right Great Toe Extension 1 Trace PT-OP-Q Treatments Start: 07/02/19 07:28 Freq: Status: Active Protocol: Document 08/03/19 15:16 [facility] (Rec: 08/03/19 15:59 [facility] [id number]) Cardio Equipment Recumbent Stepper (Sci-Fit) Duration (Minutes) 5 Resistance 3-4 Seat Position 12 Gym Equipment Shuttle Recovery Bilateral Squats Details ball bwn knees Resistance 75# Shuttle Recovery Platform Unstable Reps/Time 12x2 Shuttle Balance blue clips Details WBOS & NBOS fwd & side Comments EC fwd Neuro Re-Education Treatment Balance Activities fwd/back Reps/Duration 10ft ea Comments 1. fwd walk no rail 2. fwd january with rail 3. backwards 1x with rail, 1x w/o side steps Details 2x20ft B step ups Details onto bosu Reps/Duration 5 L & 3 R hurdles Details on sides Comments 1. step to x2 2.step through x2 PT-OP-T Assessment and Plan Start: 07/02/19 07:28 Freq: Status: Active Protocol: Document 08/03/19 15:16 [facility] (Rec: 08/03/19 15:59 [facility] [id number]) Physical Therapy Assessment Goals Tinnetti Impairment high fall risk Short Term Goal (STG) Pt will increase Tinnetti score to at least 17/28 in order to decrease fall risk to moderate. STG Duration 08/02/2019 Group Home Goal (LTG) Pt will increase Tinnetti score to at least 24/28 in order to decrease fall risk to low. LTG Duration 10/02/2019 6MWT Impairment dec amb speed Short Term Goal (STG) Pt will be able to walk for 6 minutes w/o seated rest break in order to improve ability to walk in the community with daughter. STG Duration 08/02/2019 Group Home Goal (LTG) Pt will be able to walk 300 ft in 6 minutes with use of LBQC and AFO and w/o seated rest break in order be able to grocery shop in smaller stores w daughter. LTG Duration 10/02/2019 Gait Impairment gait deviations Short Term Goal (STG) Pt will be able to amb for 20 ft with minimal in-toeing of LLE in order to reduce risk of falls. STG Duration 08/02/2019 Bridge Contractor Goal (LTG) Pt will be able to amb for 50 ft without leaning onto LBQC for heavy support in order to reduce fall risk. LTG Duration 10/02/2019 Assessment Summary Assessment Pt did better today with use of less rail support and was able to close his eyes on blaance board. He tolerated PT with less rest breaks today and improved with foot placement with hurdles today. Physical Therapy Plan Frequency and Duration Frequency of Treatment 1-2x/wk Duration of Treatment 3 months Plan of Care Start Date 07/02/19 Plan of Care End Date 10/02/19 Next Visit Focus/Plan Next Note Type Treatment Note Next Visit Plan Standing balance exercises progression; red clips shuttle balance
--- NOTE | 2019-08-05 16:01 | PT.OTN ---
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 (08/05/19) Weakness (08/05/19) History of falling (08/05/19) Physical Therapy Treatment Note PT-OP-A Visit Information Start: 07/02/19 07:28 Freq: Status: Active Protocol: Document 08/05/19 15:16 [facility] (Rec: 08/05/19 16:01 [facility] [id number]) Out-Patient Physical Therapy Visit Information Visit Information Visit Type Treatment Note Visit Start Time 15:15 Visit Stop Time 15:53 Total Visit Minutes 38 Visit Number 7 Number of TROUT FARMER Visits 0 PT-OP-B Current Condition Start: 07/02/19 07:28 Freq: Status: Active Protocol: Document 07/02/19 14:34 [facility] (Rec: 07/02/19 15:57 AR [email or web address]) Current Condition History of Current Condition Onset Date CVA in 2013. Falls x3 & hospitalization 06/22/19 Current Complaints dec activitiy tolerance, poor balance, dec amb speed History of Current Condition Pt is a 63 y.o. 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 Pt has been seen at [facility] OP for PT, OT, ST over the past few years. He was recently hospitalized ( 06/22/19) for 3 falls in the same day. One fall occured in the shower and 2 occured getting out of bed. Since recent hospitalization, daughter reports she has seen a decline in his function in dec cognitive processing. Pt has dec stamina with walking, is more unstable on his feet, has been shuffling more and appears to have less coordination. Daughter saraives he fell on 06/22/19 was due to pain in his LLE (from RA). Pt reports no sensation on RLE. He has a hx of Rhemuatoid Arthritis, blood clots, depression, diabetes mellitus I, falls, depression, heart attack, pacemaker, neuropathy, and R elbow surgery. Pt amb w a large base quad cane and DF assist AFO. Pt has had multiple falls prior to most recent hospitalization that normally occur with transitional movements like getting out of bed or into a car, prabhu when he is tired. There is an incline and gravel on their driveway which his daughter believes may be contributing to the falls with car transfers. Pt has required 24/ caregiving since his CVA in 2013, which is provided by his daughter during the daytime and his at nighttime. Prior Treatments and Tests PT, OTST. Has seen improvements with PT, but discontinued d/t plateauing of function. Future Testing and Treatments Planned OT at [facility], pt is on waiting list Treatment Goals Patient/Caregiver Goals To improve walking endurance, balance and to decrease fall risk. Prior Functional Status Baseline Function- ADL's Needs Assist Baseline Function- Mobility Needs Assist Baseline Function- Gait LBQC, AFO Baseline Function- Work/School NA Baseline Function- Recreation/Hobbies Able to ride in car with his daughter to drop of grandchildren at school. Able to amb short distances in the community w/LBQC. Able to use motorized carts at larger stores PT-OP-C Subjective Start: 07/02/19 07:28 Freq: Status: Active Protocol: Document 08/05/19 15:16 [facility] (Rec: 08/05/19 16:01 [facility] [id number]) OP-PT Subjective Patient Comments Patient Comments reports he has been doing exercises w/son in law who is visiting PT-OP-D Balance Start: 07/02/19 07:28 Freq: Status: Active Protocol: Document 07/02/19 14:34 AR (Rec: 07/02/19 15:57 AR [email or web address]) OP-PT Balance Assessment Sitting Balance Static Sitting Balance Ability Normal Standing Balance Static Standing Balance Ability Fair Device Used none Standing Balance Comments Fair standing balance with LBQC near by Tinetti Balance Assessment Sitting Balance Sitting Balance Steady, safe Arising from Chair Ability to Arise Able, uses arms to help Attempts to Arise Able, requires >1 attempt Standing Balance Immediate Standing Balance Steady with support Standing Balance Steady, wide stance Nudged Response Staggers, catches self Standing with Eyes Closed Steady Turning Step Pattern Turning 360 Degrees Discontinuous steps Stability Turning 360 Degrees Unsteady, grabs/staggers Sitting Down Sitting Down Uses arms or unsteady Gait and Step Initiation of Gait Hesitancy, mult. attempts Right Foot Step Length Does pass stance foot Right Foot Step Height Completely clears floor Left Foot Step Length Does not pass stance foot Left Foot Step Height Completely clears floor Step Description Step Symmetry Step length not equal Step Continuity Steps appear continuous Gait Description Path Description Mild/moderate deviation Trunk Description Marked sway or uses aide Walking Stance Heels apart Scoring and Interpretation Tinetti Composite Score (points) 13 Interpretation of Scores High risk for falls(< 19) Tinetti Impairment Rating from Composite 40 to <60% Impaired (Score 12- Score 16) Estrella Fall Scale Copyright Permission PT-OP-E Functional Tests Start: 07/02/19 07:28 Freq: Status: Active Protocol: Document 07/02/19 14:34 [facility] (Rec: 07/02/19 15:57 AR [email or web address]) Functional Tests 6 Minute Walk Test Distance 250 ft Device Used LBQC Comments only able to complete 4 min 30 sec and needed to seated rest break. 3 LOB PT-OP-G Mobility & Gait Start: 07/02/19 07:28 Freq: Status: Active Protocol: Document 07/02/19 14:34 [facility] (Rec: 07/02/19 15:57 AR [email or web address]) OP Mobility Evaluation Transfers Sit to Stand Heavy use of LUE to push up from chair. Pt had some instability with rising from chair. OP Gait Assessment Gait Gait Assistance Required: Contact Guard Assist Distance (Feet) 250 Assistive Devices Assistive Device Large Based Quad Cane Orthotic/Prosthetic Devices or Brace: Yes Gait Deviations General Gait Pattern Decreased Stride Length, Decreased Feet Clearance Factors Limiting Gait Function Factors Limiting Gait Function Abnormal Tonal Influences, Decreased Activity Tolerance, Decreased Sensation,Decreased Strength,Incoordination, Limited Range of Motion,Pain, Poor Balance,Poor Safety Awareness Comments Gait Comments Pt had dec step length on L side d/t instability on RLE. Heavy leaning on LBQC for support, prabhu toward end of the 6MWT. Pt had 3 LOB but was able to catch himself before falling. One LOB d/t pt catching L toes (significant in-toeing on LLE). Other LOB seemed to be d/t weakness and fatigue of LLE. PT-OP-M Strength Start: 07/02/19 07:28 Freq: Status: Active Protocol: Document 07/02/19 14:34 AR (Rec: 07/02/19 15:57 AR [email or web address]) Hip Strength Hip Manual Muscle Testing Left Flexion (L2) 3- Fair- Right Flexion (L2) 3+ Fair+ Knee Strength Knee Manual Muscle Testing Left Flexion (S2) 4+ Good+ Extension (L3) 2- Poor- Comments Pt may have not understood instruction for knee flex testing. He was able to slide foot under chair with minimal use of LUE. Right Flexion (S2) 5 Normal Extension (L3) 5 Normal Ankle/Foot Strength Ankle and Foot Manual Muscle Testing Left Dorsiflexion (L4) 1 Trace Plantarflexion (S1) 3+ Fair+ Right Dorsiflexion (L4) 4 Good Plantarflexion (S1) 5 Normal Toe Strength Toe Manual Muscle Testing Right Great Toe Extension 1 Trace PT-OP-Q Treatments Start: 07/02/19 07:28 Freq: Status: Active Protocol: Document 08/05/19 15:16 [facility] (Rec: 08/05/19 16:01 [facility] [id number]) Cardio Equipment Recumbent Stepper (Sci-Fit) Duration (Minutes) 4 Resistance 2-4 Gym Equipment Shuttle Balance red clips Details fwd & side:wbos; fwd nbos Gait Training Gait Activity gait Description gait Device Used LBQC Level of Assistance SBA Surface level Treatment Focus even step length Neuro Re-Education Treatment Balance Activities balance board Details balancing then tippping Comments fwd/back & side/side fwd/back Reps/Duration 10ft ea Comments 1. fwd walk no rail 2. fwd january with rail 3. backwards 1x with rail, 1x w/o side steps Details 2x10ft B PT-OP-T Assessment and Plan Start: 07/02/19 07:28 Freq: Status: Active Protocol: Document 08/05/19 15:16 [facility] (Rec: 08/05/19 16:01 [facility] [id number]) Physical Therapy Assessment Goals Tinnetti Impairment high fall risk Short Term Goal (STG) Pt will increase Tinnetti score to at least 17/28 in order to decrease fall risk to moderate. STG Duration 08/02/2019 [facility] Goal (LTG) Pt will increase Tinnetti score to at least 24/28 in order to decrease fall risk to low. LTG Duration 10/02/2019 6MWT Impairment dec amb speed Short Term Goal (STG) Pt will be able to walk for 6 minutes w/o seated rest break in order to improve ability to walk in the community with daughter. STG Duration 08/02/2019 [employer] Goal (LTG) Pt will be able to walk 300 ft in 6 minutes with use of LBQC and AFO and w/o seated rest break in order be able to grocery shop in smaller stores w daughter. LTG Duration 10/02/2019 Gait Impairment gait deviations Short Term Goal (STG) Pt will be able to amb for 20 ft with minimal in-toeing of LLE in order to reduce risk of falls. STG Duration 08/02/2019 [facility] Goal (LTG) Pt will be able to amb for 50 ft without leaning onto LBQC for heavy support in order to reduce fall risk. LTG Duration 10/02/2019 Assessment Summary Assessment Pt did better with consistancy with gait and LLE step length but did require cueing throughout. He is improving with balance and was able to do red clips today with challenge. Physical Therapy Plan Frequency and Duration Frequency of Treatment 1-2x/wk Duration of Treatment 3 months Plan of Care Start Date 07/02/19 Plan of Care End Date 10/02/19 Next Visit Focus/Plan Next Note Type Treatment Note Next Visit Plan Standing balance exercises progression
--- NOTE | 2019-08-10 14:32 | PT.OTN ---
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 (08/10/19) Weakness (08/10/19) History of falling (08/10/19) Physical Therapy Treatment Note PT-OP-A Visit Information Start: 07/02/19 07:28 Freq: Status: Active Protocol: Document 08/10/19 13:56 [facility] (Rec: 08/10/19 14:32 [facility] [id number]) Out-Patient Physical Therapy Visit Information Visit Information Visit Type Treatment Note Visit Start Time 13:48 Visit Stop Time 14:26 Total Visit Minutes 38 Visit Number 8 Number of DRAG OUT WORKER Visits 0 PT-OP-B Current Condition Start: 07/02/19 07:28 Freq: Status: Active Protocol: Document 07/02/19 14:34 AR (Rec: 07/02/19 15:57 AR [email or web address]) Current Condition History of Current Condition Onset Date CVA in 2013. Falls x3 & hospitalization 06/22/19 Current Complaints dec activitiy tolerance, poor balance, dec amb speed History of Current Condition Pt is a 63 y.o. 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 Pt has been seen at [facility] OP for PT, OT, ST over the past few years. He was recently hospitalized ( 06/22/19) for 3 falls in the same day. One fall occured in the shower and 2 occured getting out of bed. Since recent hospitalization, daughter reports she has seen a decline in his function in dec cognitive processing. Pt has dec stamina with walking, is more unstable on his feet, has been shuffling more and appears to have less coordination. Daughter saraives he fell on 06/22/19 was due to pain in his LLE (from RA). Pt reports no sensation on RLE. He has a hx of Rhemuatoid Arthritis, blood clots, depression, diabetes mellitus I, falls, depression, heart attack, pacemaker, neuropathy, and R elbow surgery. Pt amb w a large base quad cane and DF assist AFO. Pt has had multiple falls prior to most recent hospitalization that normally occur with transitional movements like getting out of bed or into a car, prabhu when he is tired. There is an incline and gravel on their driveway which his daughter believes may be contributing to the falls with car transfers. Pt has required 24/ caregiving since his CVA in 2013, which is provided by his daughter during the daytime and his at nighttime. Prior Treatments and Tests PT, OTST. Has seen improvements with PT, but discontinued d/t plateauing of function. Future Testing and Treatments Planned OT at [facility], pt is on waiting list Treatment Goals Patient/Caregiver Goals To improve walking endurance, balance and to decrease fall risk. Prior Functional Status Baseline Function- ADL's Needs Assist Baseline Function- Mobility Needs Assist Baseline Function- Gait LBQC, AFO Baseline Function- Work/School NA Baseline Function- Recreation/Hobbies Able to ride in car with his daughter to drop of grandchildren at school. Able to amb short distances in the community w/LBQC. Able to use motorized carts at larger stores PT-OP-C Subjective Start: 07/02/19 07:28 Freq: Status: Active Protocol: Document 08/10/19 13:56 [facility] (Rec: 08/10/19 14:32 [facility] [id number]) OP-PT Subjective Patient Comments Patient Comments Pt reports he hasn't done much exercise. PT-OP-D Balance Start: 07/02/19 07:28 Freq: Status: Active Protocol: Document 07/02/19 14:34 AR (Rec: 07/02/19 15:57 AR [email or web address]) OP-PT Balance Assessment Sitting Balance Static Sitting Balance Ability Normal Standing Balance Static Standing Balance Ability Fair Device Used none Standing Balance Comments Fair standing balance with LBQC near by Tinetti Balance Assessment Sitting Balance Sitting Balance Steady, safe Arising from Chair Ability to Arise Able, uses arms to help Attempts to Arise Able, requires >1 attempt Standing Balance Immediate Standing Balance Steady with support Standing Balance Steady, wide stance Nudged Response Staggers, catches self Standing with Eyes Closed Steady Turning Step Pattern Turning 360 Degrees Discontinuous steps Stability Turning 360 Degrees Unsteady, grabs/staggers Sitting Down Sitting Down Uses arms or unsteady Gait and Step Initiation of Gait Hesitancy, mult. attempts Right Foot Step Length Does pass stance foot Right Foot Step Height Completely clears floor Left Foot Step Length Does not pass stance foot Left Foot Step Height Completely clears floor Step Description Step Symmetry Step length not equal Step Continuity Steps appear continuous Gait Description Path Description Mild/moderate deviation Trunk Description Marked sway or uses aide Walking Stance Heels apart Scoring and Interpretation Tinetti Composite Score (points) 13 Interpretation of Scores High risk for falls(< 19) Tinetti Impairment Rating from Composite 40 to <60% Impaired (Score 12- Score 16) Estrella Fall Scale Copyright Permission PT-OP-E Functional Tests Start: 07/02/19 07:28 Freq: Status: Active Protocol: Document 07/02/19 14:34 [facility] (Rec: 07/02/19 15:57 AR [email or web address]) Functional Tests 6 Minute Walk Test Distance 250 ft Device Used LBQC Comments only able to complete 4 min 30 sec and needed to seated rest break. 3 LOB PT-OP-G Mobility & Gait Start: 07/02/19 07:28 Freq: Status: Active Protocol: Document 07/02/19 14:34 AR (Rec: 07/02/19 15:57 AR [email or web address]) OP Mobility Evaluation Transfers Sit to Stand Heavy use of LUE to push up from chair. Pt had some instability with rising from chair. OP Gait Assessment Gait Gait Assistance Required: Contact Guard Assist Distance (Feet) 250 Assistive Devices Assistive Device Large Based Quad Cane Orthotic/Prosthetic Devices or Brace: Yes Gait Deviations General Gait Pattern Decreased Stride Length, Decreased Feet Clearance Factors Limiting Gait Function Factors Limiting Gait Function Abnormal Tonal Influences, Decreased Activity Tolerance, Decreased Sensation,Decreased Strength,Incoordination, Limited Range of Motion,Pain, Poor Balance,Poor Safety Awareness Comments Gait Comments Pt had dec step length on L side d/t instability on RLE. Heavy leaning on LBQC for support, prabhu toward end of the 6MWT. Pt had 3 LOB but was able to catch himself before falling. One LOB d/t pt catching L toes (significant in-toeing on LLE). Other LOB seemed to be d/t weakness and fatigue of LLE. PT-OP-M Strength Start: 07/02/19 07:28 Freq: Status: Active Protocol: Document 07/02/19 14:34 AR (Rec: 07/02/19 15:57 AR [email or web address]) Hip Strength Hip Manual Muscle Testing Left Flexion (L2) 3- Fair- Right Flexion (L2) 3+ Fair+ Knee Strength Knee Manual Muscle Testing Left Flexion (S2) 4+ Good+ Extension (L3) 2- Poor- Comments Pt may have not understood instruction for knee flex testing. He was able to slide foot under chair with minimal use of LUE. Right Flexion (S2) 5 Normal Extension (L3) 5 Normal Ankle/Foot Strength Ankle and Foot Manual Muscle Testing Left Dorsiflexion (L4) 1 Trace Plantarflexion (S1) 3+ Fair+ Right Dorsiflexion (L4) 4 Good Plantarflexion (S1) 5 Normal Toe Strength Toe Manual Muscle Testing Right Great Toe Extension 1 Trace PT-OP-Q Treatments Start: 07/02/19 07:28 Freq: Status: Active Protocol: Document 08/10/19 13:56 [facility] (Rec: 08/10/19 14:32 [facility] [id number]) Cardio Equipment Recumbent Stepper (Sci-Fit) Duration (Minutes) 5 Resistance 3 Gym Equipment Shuttle Balance red clips Details fwd & side:wbos; fwd nbos Gait Training Gait Activity gait Description gait Device Used LBQC Level of Assistance SBA Surface level Treatment Focus even step length Neuro Re-Education Treatment Balance Activities march Details w/L hand hold to PT hand, L hip flex Reps/Duration 10 balance board Details balancing then tippping Comments fwd/back & side/side fwd/back Reps/Duration 10ft ea Comments 1. fwd walk no rail 2. backwards without rail PT-OP-T Assessment and Plan Start: 07/02/19 07:28 Freq: Status: Active Protocol: Document 08/10/19 13:56 [facility] (Rec: 08/10/19 14:32 [facility] [id number]) Physical Therapy Assessment Goals Tinnetti Impairment high fall risk Short Term Goal (STG) Pt will increase Tinnetti score to at least 17/28 in order to decrease fall risk to moderate. STG Duration 08/02/2019 [employer] Goal (LTG) Pt will increase Tinnetti score to at least 24/28 in order to decrease fall risk to low. LTG Duration 10/02/2019 6MWT Impairment dec amb speed Short Term Goal (STG) Pt will be able to walk for 6 minutes w/o seated rest break in order to improve ability to walk in the community with daughter. STG Duration 08/02/2019 [employer] Goal (LTG) Pt will be able to walk 300 ft in 6 minutes with use of LBQC and AFO and w/o seated rest break in order be able to grocery shop in smaller stores w daughter. LTG Duration 10/02/2019 Gait Impairment gait deviations Short Term Goal (STG) Pt will be able to amb for 20 ft with minimal in-toeing of LLE in order to reduce risk of falls. STG Duration 08/02/2019 [employer] Goal (LTG) Pt will be able to amb for 50 ft without leaning onto LBQC for heavy support in order to reduce fall risk. LTG Duration 10/02/2019 Assessment Summary Assessment Pt improved with gait with less cueing required today. Improved balance on balance board today and improving balance without AD today with fwd/back Physical Therapy Plan Frequency and Duration Frequency of Treatment 1-2x/wk Duration of Treatment 3 months Plan of Care Start Date 07/02/19 Plan of Care End Date 10/02/19 Next Visit Focus/Plan Next Note Type Treatment Note Next Visit Plan Standing balance exercises progression with focus on wt shift into RLE
--- NOTE | 2019-08-12 15:14 | PT.OTN ---
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 (08/12/19) Weakness (08/12/19) History of falling (08/12/19) Physical Therapy Treatment Note PT-OP-A Visit Information Start: 07/02/19 07:28 Freq: Status: Active Protocol: Document 08/12/19 14:50 SP (Rec: 08/12/19 15:14 SP [email or web address]) Out-Patient Physical Therapy Visit Information Visit Information Visit Type Treatment Note Visit Start Time 13:50 Visit Stop Time 14:40 Total Visit Minutes 50 Visit Number 9 Number of SPOT WELDER Visits 1 PT-OP-B Current Condition Start: 07/02/19 07:28 Freq: Status: Active Protocol: Document 07/02/19 14:34 AR (Rec: 07/02/19 15:57 AR [email or web address]) Current Condition History of Current Condition Onset Date CVA in 2013. Falls x3 & hospitalization 06/22/19 Current Complaints dec activitiy tolerance, poor balance, dec amb speed History of Current Condition Pt is a 63 y.o. 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 Pt has been seen at [facility] OP for PT, OT, ST over the past few years. He was recently hospitalized ( 06/22/19) for 3 falls in the same day. One fall occured in the shower and 2 occured getting out of bed. Since recent hospitalization, daughter reports she has seen a decline in his function in dec cognitive processing. Pt has dec stamina with walking, is more unstable on his feet, has been shuffling more and appears to have less coordination. Daughter saraives he fell on 06/22/19 was due to pain in his LLE (from RA). Pt reports no sensation on RLE. He has a hx of Rhemuatoid Arthritis, blood clots, depression, diabetes mellitus I, falls, depression, heart attack, pacemaker, neuropathy, and R elbow surgery. Pt amb w a large base quad cane and DF assist AFO. Pt has had multiple falls prior to most recent hospitalization that normally occur with transitional movements like getting out of bed or into a car, prabhu when he is tired. There is an incline and gravel on their driveway which his daughter believes may be contributing to the falls with car transfers. Pt has required 24/7 caregiving since his CVA in 2013, which is provided by his daughter during the daytime and his at nighttime. Prior Treatments and Tests PT, OT, ST. Has seen improvements with PT, but discontinued d/t plateauing of function. Future Testing and Treatments Planned OT at [facility], pt is on waiting list Treatment Goals Patient/Caregiver Goals To improve walking endurance, balance and to decrease fall risk. Prior Functional Status Baseline Function- ADL's Needs Assist Baseline Function- Mobility Needs Assist Baseline Function- Gait LBQC, AFO Baseline Function- Work/School NA Baseline Function- Recreation/Hobbies Able to ride in car with his daughter to drop of grandchildren at school. Able to amb short distances in the community w/LBQC. Able to use motorized carts at larger stores PT-OP-C Subjective Start: 07/02/19 07:28 Freq: Status: Active Protocol: Document 08/12/19 14:50 SP (Rec: 08/12/19 15:14 SP [email or web address]) OP-PT Subjective Patient Comments Patient Comments Pt reports he hasn't been doing much exercises at home. No pain report pre PT. OP-PT Pain Assessment Pain Assessment Grid Paper Pain Assessment Grid Completed 0/10 pain end of tx. PT-OP-D Balance Start: 07/02/19 07:28 Freq: Status: Active Protocol: Document 07/02/19 14:34 AR (Rec: 07/02/19 15:57 AR [email or web address]) OP-PT Balance Assessment Sitting Balance Static Sitting Balance Ability Normal Standing Balance Static Standing Balance Ability Fair Device Used none Standing Balance Comments Fair standing balance with LBQC near by Tinetti Balance Assessment Sitting Balance Sitting Balance Steady, safe Arising from Chair Ability to Arise Able, uses arms to help Attempts to Arise Able, requires >1 attempt Standing Balance Immediate Standing Balance Steady with support Standing Balance Steady, wide stance Nudged Response Staggers, catches self Standing with Eyes Closed Steady Turning Step Pattern Turning 360 Degrees Discontinuous steps Stability Turning 360 Degrees Unsteady, grabs/staggers Sitting Down Sitting Down Uses arms or unsteady Gait and Step Initiation of Gait Hesitancy, mult. attempts Right Foot Step Length Does pass stance foot Right Foot Step Height Completely clears floor Left Foot Step Length Does not pass stance foot Left Foot Step Height Completely clears floor Step Description Step Symmetry Step length not equal Step Continuity Steps appear continuous Gait Description Path Description Mild/moderate deviation Trunk Description Marked sway or uses aide Walking Stance Heels apart Scoring and Interpretation Tinetti Composite Score (points) 13 Interpretation of Scores High risk for falls(< 19) Tinetti Impairment Rating from Composite 40 to <60% Impaired (Score 12- Score 16) Estrella Fall Scale Copyright Permission PT-OP-E Functional Tests Start: 07/02/19 07:28 Freq: Status: Active Protocol: Document 07/02/19 14:34 AR (Rec: 07/02/19 15:57 AR [email or web address]) Functional Tests 6 Minute Walk Test Distance 250 ft Device Used LBQC Comments only able to complete 4 min 30 sec and needed to seated rest break. 3 LOB PT-OP-G Mobility & Gait Start: 07/02/19 07:28 Freq: Status: Active Protocol: Document 07/02/19 14:34 AR (Rec: 07/02/19 15:57 AR [email or web address]) OP Mobility Evaluation Transfers Sit to Stand Heavy use of LUE to push up from chair. Pt had some instability with rising from chair. OP Gait Assessment Gait Gait Assistance Required: Contact Guard Assist Distance (Feet) 250 Assistive Devices Assistive Device Large Based Quad Cane Orthotic/Prosthetic Devices or Brace: Yes Gait Deviations General Gait Pattern Decreased Stride Length, Decreased Feet Clearance Factors Limiting Gait Function Factors Limiting Gait Function Abnormal Tonal Influences, Decreased Activity Tolerance, Decreased Sensation,Decreased Strength,Incoordination, Limited Range of Motion,Pain, Poor Balance,Poor Safety Awareness Comments Gait Comments Pt had dec step length on L side d/t instability on RLE. Heavy leaning on LBQC for support, prabhu toward end of the 6MWT. Pt had 3 LOB but was able to catch himself before falling. One LOB d/t pt catching L toes (significant in-toeing on LLE). Other LOB seemed to be d/t weakness and fatigue of LLE. PT-OP-M Strength Start: 07/02/19 07:28 Freq: Status: Active Protocol: Document 07/02/19 14:34 AR (Rec: 07/02/19 15:57 AR [email or web address]) Hip Strength Hip Manual Muscle Testing Left Flexion (L2) 3- Fair- Right Flexion (L2) 3+ Fair+ Knee Strength Knee Manual Muscle Testing Left Flexion (S2) 4+ Good+ Extension (L3) 2- Poor- Comments Pt may have not understood instruction for knee flex testing. He was able to slide foot under chair with minimal use of LUE. Right Flexion (S2) 5 Normal Extension (L3) 5 Normal Ankle/Foot Strength Ankle and Foot Manual Muscle Testing Left Dorsiflexion (L4) 1 Trace Plantarflexion (S1) 3+ Fair+ Right Dorsiflexion (L4) 4 Good Plantarflexion (S1) 5 Normal Toe Strength Toe Manual Muscle Testing Right Great Toe Extension 1 Trace PT-OP-Q Treatments Start: 07/02/19 07:28 Freq: Status: Active Protocol: Document 08/12/19 14:50 SP (Rec: 08/12/19 15:08 SP [email or web address]) Therapeutic Exercises Supine Exercises single knee fall out Supine Exercise Name single knee fall out Resistance AROM Reps/Minutes 3x5 Comments alternate R and L bridge Supine Exercise Name double leg bridge Resistance AROM Equipment Used level TB Reps/Minutes 3x5 Sitting Exercises LAQ Sitting Exercise Name seated LAQ Resistance AROM Reps/Minutes 3x10 pause at end range Comments alternate R and L with target to kick to (pause quad contraction end range) marches Sitting Exercise Name seated march Resistance AROM Reps/Minutes 3x10 Comments alternate R and L Neuro Re-Education Treatment Balance Activities balance board Details balancing then tippping Reps/Duration 30-60 sec x2 ea Comments fwd/back & side/side CG-min A fwd/back Equipment // bars Reps/Duration 2x 10ft ea direction Comments 1. fwd walk no rail 2. backwards without rail side steps Details 2x10ft B Equipment // bars Reps/Duration 2x 10 ft ea direction Comments close SBA to R, CGA-Min to L. PT-OP-T Assessment and Plan Start: 07/02/19 07:28 Freq: Status: Active Protocol: Document 08/12/19 14:50 SP (Rec: 08/12/19 15:08 SP [email or web address]) Physical Therapy Assessment Assessment Summary Assessment Pt improved gait feet parallel post supine/seated glut and hip flexor facilitation. Improving balance and decreased UE WB on to LBQC end of tx. Physical Therapy Plan Frequency and Duration Frequency of Treatment 1-2x/wk Duration of Treatment 3 months Plan of Care Start Date 07/02/19 Plan of Care End Date 10/02/19 Next Visit Focus/Plan Next Note Type Treatment Note Next Visit Plan Standing balance exercises progression with focus on wt shift into RLE
--- NOTE | 2019-08-17 17:52 | PT.OTN ---
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 (08/17/19) Weakness (08/17/19) History of falling (08/17/19) Physical Therapy Treatment Note PT-OP-A Visit Information Start: 07/02/19 07:28 Freq: Status: Active Protocol: Document 08/17/19 15:39 LR (Rec: 08/17/19 17:52 [facility] [id number]) Out-Patient Physical Therapy Visit Information Visit Information Visit Type Treatment Note Visit Start Time 15:15 Visit Stop Time 15:55 Total Visit Minutes 40 Visit Number 10 Number of VIDEO GAMES STORYWRITER Visits 0 PT-OP-B Current Condition Start: 07/02/19 07:28 Freq: Status: Active Protocol: Document 07/02/19 14:34 AR (Rec: 07/02/19 15:57 AR [email or web address]) Current Condition History of Current Condition Onset Date CVA in 2013. Falls x3 & hospitalization 06/22/19 Current Complaints dec activitiy tolerance, poor balance, dec amb speed History of Current Condition Pt is a 63 y.o. 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 Pt has been seen at [facility] OP for PT, OT, ST over the past few years. He was recently hospitalized ( 06/22/19) for 3 falls in the same day. One fall occured in the shower and 2 occured getting out of bed. Since recent hospitalization, daughter reports she has seen a decline in his function in dec cognitive processing. Pt has dec stamina with walking, is more unstable on his feet, has been shuffling more and appears to have less coordination. Daughter saraives he fell on 06/22/19 was due to pain in his LLE (from RA). Pt reports no sensation on RLE. He has a hx of Rhemuatoid Arthritis, blood clots, depression, diabetes mellitus I, falls, depression, heart attack, pacemaker, neuropathy, and R elbow surgery. Pt amb w a large base quad cane and DF assist AFO. Pt has had multiple falls prior to most recent hospitalization that normally occur with transitional movements like getting out of bed or into a car, prabhu when he is tired. There is an incline and gravel on their driveway which his daughter believes may be contributing to the falls with car transfers. Pt has required 24/ caregiving since his CVA in 2013, which is provided by his daughter during the daytime and his at nighttime. Prior Treatments and Tests PT, OT, ST. Has seen improvements with PT, but discontinued d/t plateauing of function. Future Testing and Treatments Planned OT at [facility], pt is on waiting list Treatment Goals Patient/Caregiver Goals To improve walking endurance, balance and to decrease fall risk. Prior Functional Status Baseline Function- ADL's Needs Assist Baseline Function- Mobility Needs Assist Baseline Function- Gait LBQC, AFO Baseline Function- Work/School NA Baseline Function- Recreation/Hobbies Able to ride in car with his daughter to drop of grandchildren at school. Able to amb short distances in the community w/LBQC. Able to use motorized carts at larger stores PT-OP-C Subjective Start: 07/02/19 07:28 Freq: Status: Active Protocol: Document 08/17/19 15:39 [facility] (Rec: 08/17/19 17:52 [facility] [id number]) OP-PT Subjective Patient Comments Patient Comments Pt has not gone to the pool with his family. PT-OP-D Balance Start: 07/02/19 07:28 Freq: Status: Active Protocol: Document 07/02/19 14:34 AR (Rec: 07/02/19 15:57 AR [email or web address]) OP-PT Balance Assessment Sitting Balance Static Sitting Balance Ability Normal Standing Balance Static Standing Balance Ability Fair Device Used none Standing Balance Comments Fair standing balance with LBQC near by Tinetti Balance Assessment Sitting Balance Sitting Balance Steady, safe Arising from Chair Ability to Arise Able, uses arms to help Attempts to Arise Able, requires >1 attempt Standing Balance Immediate Standing Balance Steady with support Standing Balance Steady, wide stance Nudged Response Staggers, catches self Standing with Eyes Closed Steady Turning Step Pattern Turning 360 Degrees Discontinuous steps Stability Turning 360 Degrees Unsteady, grabs/staggers Sitting Down Sitting Down Uses arms or unsteady Gait and Step Initiation of Gait Hesitancy, mult. attempts Right Foot Step Length Does pass stance foot Right Foot Step Height Completely clears floor Left Foot Step Length Does not pass stance foot Left Foot Step Height Completely clears floor Step Description Step Symmetry Step length not equal Step Continuity Steps appear continuous Gait Description Path Description Mild/moderate deviation Trunk Description Marked sway or uses aide Walking Stance Heels apart Scoring and Interpretation Tinetti Composite Score (points) 13 Interpretation of Scores High risk for falls(< 19) Tinetti Impairment Rating from Composite 40 to <60% Impaired (Score 12- Score 16) Estrella Fall Scale Copyright Permission PT-OP-E Functional Tests Start: 07/02/19 07:28 Freq: Status: Active Protocol: Document 07/02/19 14:34 AR (Rec: 07/02/19 15:57 AR [email or web address]) Functional Tests 6 Minute Walk Test Distance 250 ft Device Used LBQC Comments only able to complete 4 min 30 sec and needed to seated rest break. 3 LOB PT-OP-G Mobility & Gait Start: 07/02/19 07:28 Freq: Status: Active Protocol: Document 07/02/19 14:34 AR (Rec: 07/02/19 15:57 AR [email or web address]) OP Mobility Evaluation Transfers Sit to Stand Heavy use of LUE to push up from chair. Pt had some instability with rising from chair. OP Gait Assessment Gait Gait Assistance Required: Contact Guard Assist Distance (Feet) 250 Assistive Devices Assistive Device Large Based Quad Cane Orthotic/Prosthetic Devices or Brace: Yes Gait Deviations General Gait Pattern Decreased Stride Length, Decreased Feet Clearance Factors Limiting Gait Function Factors Limiting Gait Function Abnormal Tonal Influences, Decreased Activity Tolerance, Decreased Sensation,Decreased Strength,Incoordination, Limited Range of Motion,Pain, Poor Balance,Poor Safety Awareness Comments Gait Comments Pt had dec step length on L side d/t instability on RLE. Heavy leaning on LBQC for support, prabhu toward end of the 6MWT. Pt had 3 LOB but was able to catch himself before falling. One LOB d/t pt catching L toes (significant in-toeing on LLE). Other LOB seemed to be d/t weakness and fatigue of LLE. PT-OP-M Strength Start: 07/02/19 07:28 Freq: Status: Active Protocol: Document 07/02/19 14:34 AR (Rec: 07/02/19 15:57 AR [email or web address]) Hip Strength Hip Manual Muscle Testing Left Flexion (L2) 3- Fair- Right Flexion (L2) 3+ Fair+ Knee Strength Knee Manual Muscle Testing Left Flexion (S2) 4+ Good+ Extension (L3) 2- Poor- Comments Pt may have not understood instruction for knee flex testing. He was able to slide foot under chair with minimal use of LUE. Right Flexion (S2) 5 Normal Extension (L3) 5 Normal Ankle/Foot Strength Ankle and Foot Manual Muscle Testing Left Dorsiflexion (L4) 1 Trace Plantarflexion (S1) 3+ Fair+ Right Dorsiflexion (L4) 4 Good Plantarflexion (S1) 5 Normal Toe Strength Toe Manual Muscle Testing Right Great Toe Extension 1 Trace PT-OP-Q Treatments Start: 07/02/19 07:28 Freq: Status: Active Protocol: Document 08/17/19 15:39 [facility] (Rec: 08/17/19 17:52 [facility] [id number]) Cardio Equipment Recumbent Stepper (Sci-Fit) Duration (Minutes) 5 Resistance 4 Gait Training Gait Activity gait Description gait Device Used LBQC Level of Assistance SBA Surface level Treatment Focus even step length Neuro Re-Education Treatment Balance Activities balance board Details tippping for wt shift Comments fwd/back & side/side fwd/back Equipment // bars Reps/Duration 2x 10ft ea direction Comments 1. fwd walk no rail 2. backwards without rail step ups Details 5 in step fwd step and side step ups 4 in Reps/Duration 5 B ea stagger stance Details modified tandem B PT-OP-T Assessment and Plan Start: 07/02/19 07:28 Freq: Status: Active Protocol: Document 08/17/19 15:39 [facility] (Rec: 08/17/19 17:52 [facility] [id number]) Physical Therapy Assessment Goals Tinnetti Impairment high fall risk Short Term Goal (STG) Pt will increase Tinnetti score to at least 17/28 in order to decrease fall risk to moderate. STG Duration 08/02/2019 Retirement Goal (LTG) Pt will increase Tinnetti score to at least 24/28 in order to decrease fall risk to low. LTG Duration 10/02/2019 6MWT Impairment dec amb speed Short Term Goal (STG) Pt will be able to walk for 6 minutes w/o seated rest break in order to improve ability to walk in the community with daughter. STG Duration 08/02/2019 Retirement Goal (LTG) Pt will be able to walk 300 ft in 6 minutes with use of LBQC and AFO and w/o seated rest break in order be able to grocery shop in smaller stores w daughter. LTG Duration 10/02/2019 Gait Impairment gait deviations Short Term Goal (STG) Pt will be able to amb for 20 ft with minimal in-toeing of LLE in order to reduce risk of falls. STG Duration 08/02/2019 Engrosser Goal (LTG) Pt will be able to amb for 50 ft without leaning onto LBQC for heavy support in order to reduce fall risk. LTG Duration 10/02/2019 Assessment Summary Assessment Pt did better today with walking without AD and with AD . He was significantly challenged by lateral step ups especially w/RUE. Physical Therapy Plan Frequency and Duration Frequency of Treatment 1-2x/wk Duration of Treatment 3 months Plan of Care Start Date 07/02/19 Plan of Care End Date 10/02/19 Next Visit Focus/Plan Next Note Type Treatment Note Next Visit Plan cont to work on balance & stability on RLE
--- NOTE | 2019-08-19 18:43 | PT.OTN ---
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 (08/19/19) Weakness (08/19/19) History of falling (08/19/19) Physical Therapy Treatment Note PT-OP-A Visit Information Start: 07/02/19 07:28 Freq: Status: Active Protocol: Document 08/19/19 16:04 MT (Rec: 08/19/19 16:22 MT [id number]) Out-Patient Physical Therapy Visit Information Visit Information Visit Type Treatment Note Visit Start Time 15:15 Visit Stop Time 16:02 Total Visit Minutes 47 Visit Number 11 Number of LOCATE TECHNICIAN Visits 0 PT-OP-B Current Condition Start: 07/02/19 07:28 Freq: Status: Active Protocol: Document 07/02/19 14:34 AR (Rec: 07/02/19 15:57 AR [email or web address]) Current Condition History of Current Condition Onset Date CVA in 2013. Falls x3 & hospitalization 06/22/19 Current Complaints dec activitiy tolerance, poor balance, dec amb speed History of Current Condition Pt is a 63 y.o. 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 Pt has been seen at [facility] OP for PT, OT, ST over the past few years. He was recently hospitalized ( 06/22/19) for 3 falls in the same day. One fall occured in the shower and 2 occured getting out of bed. Since recent hospitalization, daughter reports she has seen a decline in his function in dec cognitive processing. Pt has dec stamina with walking, is more unstable on his feet, has been shuffling more and appears to have less coordination. Daughter carlos he fell on 06/22/19 was due to pain in his LLE (from RA). Pt reports no sensation on RLE. He has a hx of Rhemuatoid Arthritis, blood clots, depression, diabetes mellitus I, falls, depression, heart attack, pacemaker, neuropathy, and R elbow surgery. Pt amb w a large base quad cane and DF assist AFO. Pt has had multiple falls prior to most recent hospitalization that normally occur with transitional movements like getting out of bed or into a car, prabhu when he is tired. There is an incline and gravel on their driveway which his daughter believes may be contributing to the falls with car transfers. Pt has required 24/7 caregiving since his CVA in 2013, which is provided by his daughter during the daytime and his at nighttime. Prior Treatments and Tests PT, OT, ST. Has seen improvements with PT, but discontinued d/t plateauing of function. Future Testing and Treatments Planned OT at [facility], pt is on waiting list Treatment Goals Patient/Caregiver Goals To improve walking endurance, balance and to decrease fall risk. Prior Functional Status Baseline Function- ADL's Needs Assist Baseline Function- Mobility Needs Assist Baseline Function- Gait LBQC, AFO Baseline Function- Work/School NA Baseline Function- Recreation/Hobbies Able to ride in car with his daughter to drop of grandchildren at school. Able to amb short distances in the community w/LBQC. Able to use motorized carts at larger stores PT-OP-C Subjective Start: 07/02/19 07:28 Freq: Status: Active Protocol: Document 08/19/19 16:04 MT (Rec: 08/19/19 16:22 MT [id number]) OP-PT Subjective Patient Comments Patient Comments Pt's reports that he has not been doing his HEP. She has noticed that the pt leans excessively to the left on his cane and speculates that that is the reason that he fell previously. PT-OP-D Balance Start: 07/02/19 07:28 Freq: Status: Active Protocol: Document 07/02/19 14:34 AR (Rec: 07/02/19 15:57 AR [email or web address]) OP-PT Balance Assessment Sitting Balance Static Sitting Balance Ability Normal Standing Balance Static Standing Balance Ability Fair Device Used none Standing Balance Comments Fair standing balance with LBQC near by Tinetti Balance Assessment Sitting Balance Sitting Balance Steady, safe Arising from Chair Ability to Arise Able, uses arms to help Attempts to Arise Able, requires >1 attempt Standing Balance Immediate Standing Balance Steady with support Standing Balance Steady, wide stance Nudged Response Staggers, catches self Standing with Eyes Closed Steady Turning Step Pattern Turning 360 Degrees Discontinuous steps Stability Turning 360 Degrees Unsteady, grabs/staggers Sitting Down Sitting Down Uses arms or unsteady Gait and Step Initiation of Gait Hesitancy, mult. attempts Right Foot Step Length Does pass stance foot Right Foot Step Height Completely clears floor Left Foot Step Length Does not pass stance foot Left Foot Step Height Completely clears floor Step Description Step Symmetry Step length not equal Step Continuity Steps appear continuous Gait Description Path Description Mild/moderate deviation Trunk Description Marked sway or uses aide Walking Stance Heels apart Scoring and Interpretation Tinetti Composite Score (points) 13 Interpretation of Scores High risk for falls(< 19) Tinetti Impairment Rating from Composite 40 to <60% Impaired (Score 12- Score 16) Estrella Fall Scale Copyright Permission PT-OP-E Functional Tests Start: 07/02/19 07:28 Freq: Status: Active Protocol: Document 07/02/19 14:34 AR (Rec: 07/02/19 15:57 AR [email or web address]) Functional Tests 6 Minute Walk Test Distance 250 ft Device Used LBQC Comments only able to complete 4 min 30 sec and needed to seated rest break. 3 LOB PT-OP-G Mobility & Gait Start: 07/02/19 07:28 Freq: Status: Active Protocol: Document 07/02/19 14:34 AR (Rec: 07/02/19 15:57 AR [email or web address]) OP Mobility Evaluation Transfers Sit to Stand Heavy use of LUE to push up from chair. Pt had some instability with rising from chair. OP Gait Assessment Gait Gait Assistance Required: Contact Guard Assist Distance (Feet) 250 Assistive Devices Assistive Device Large Based Quad Cane Orthotic/Prosthetic Devices or Brace: Yes Gait Deviations General Gait Pattern Decreased Stride Length, Decreased Feet Clearance Factors Limiting Gait Function Factors Limiting Gait Function Abnormal Tonal Influences, Decreased Activity Tolerance, Decreased Sensation,Decreased Strength,Incoordination, Limited Range of Motion,Pain, Poor Balance,Poor Safety Awareness Comments Gait Comments Pt had dec step length on L side d/t instability on RLE. Heavy leaning on LBQC for support, prabhu toward end of the 6MWT. Pt had 3 LOB but was able to catch himself before falling. One LOB d/t pt catching L toes (significant in-toeing on LLE). Other LOB seemed to be d/t weakness and fatigue of LLE. PT-OP-M Strength Start: 07/02/19 07:28 Freq: Status: Active Protocol: Document 07/02/19 14:34 AR (Rec: 07/02/19 15:57 AR [email or web address]) Hip Strength Hip Manual Muscle Testing Left Flexion (L2) 3- Fair- Right Flexion (L2) 3+ Fair+ Knee Strength Knee Manual Muscle Testing Left Flexion (S2) 4+ Good+ Extension (L3) 2- Poor- Comments Pt may have not understood instruction for knee flex testing. He was able to slide foot under chair with minimal use of LUE. Right Flexion (S2) 5 Normal Extension (L3) 5 Normal Ankle/Foot Strength Ankle and Foot Manual Muscle Testing Left Dorsiflexion (L4) 1 Trace Plantarflexion (S1) 3+ Fair+ Right Dorsiflexion (L4) 4 Good Plantarflexion (S1) 5 Normal Toe Strength Toe Manual Muscle Testing Right Great Toe Extension 1 Trace PT-OP-Q Treatments Start: 07/02/19 07:28 Freq: Status: Active Protocol: Document 08/19/19 16:04 MT (Rec: 08/19/19 16:22 MT [id number]) Cardio Equipment Recumbent Stepper (Sci-Fit) Duration (Minutes) 5 Resistance 4 Gait Training Gait Activity gait Description gait Device Used SPC Level of Assistance SBA Surface level Treatment Focus even step length and distribution Comments pt required multiple breaks throughout small gym loop Neuro Re-Education Treatment Balance Activities balance board Details tipping then balance Reps/Duration 10 tips + 10 sec balance x2 Comments fwd/back, side/side step ups Details 5 in step fwd step ups 4 in Reps/Duration 5 B ea NBOS Details tandem stance eyes closed Surface firm Reps/Duration 1 minute hold with each foot position Comments Pt exhibited greater difficulty with L leg in front tandem position. stagger stance Details modified tandem stance B compliant surface Surface blue foam pad Reps/Duration 1 minute each foot position Comments cueing for keeping R heel on ground and for even wieght distribution through feet PT-OP-T Assessment and Plan Start: 07/02/19 07:28 Freq: Status: Active Protocol: Document 08/19/19 16:04 MT (Rec: 08/19/19 16:22 MT [id number]) Physical Therapy Assessment Goals Tinnetti Impairment high fall risk Short Term Goal (STG) Pt will increase Tinnetti score to at least 17/28 in order to decrease fall risk to moderate. STG Duration 08/02/2019 Biological Technical Officer Goal (LTG) Pt will increase Tinnetti score to at least 24/28 in order to decrease fall risk to low. LTG Duration 10/02/2019 6MWT Impairment dec amb speed Short Term Goal (STG) Pt will be able to walk for 6 minutes w/o seated rest break in order to improve ability to walk in the community with daughter. STG Duration 08/02/2019 Fdc Goal (LTG) Pt will be able to walk 300 ft in 6 minutes with use of LBQC and AFO and w/o seated rest break in order be able to grocery shop in smaller stores w daughter. LTG Duration 10/02/2019 Gait Impairment gait deviations Short Term Goal (STG) Pt will be able to amb for 20 ft with minimal in-toeing of LLE in order to reduce risk of falls. STG Duration 08/02/2019 Biological Technical Officer Goal (LTG) Pt will be able to amb for 50 ft without leaning onto LBQC for heavy support in order to reduce fall risk. LTG Duration 10/02/2019 Assessment Summary Assessment Pt displayed significantly increased step length with his L foot more consistently. Due to 's mentioning that pt tends to lean excessively to the left on his cane, pt was educated and practiced gait training with a single point cane in order to decrease to dependence on cane and to facilitate decreased lean during gait. Pt did well with balance activities today , showing that he is able to tolerate weight shift bilaterally. He continued to e challenged by the step up exercises. Physical Therapy Plan Next Visit Focus/Plan Next Note Type Treatment Note Next Visit Plan gait training and activity tolerance with single point cane, continue to work on balance especially weight shifting and narrow NATE, LE strengthening/stability
--- NOTE | 2019-08-25 15:20 | PT.OTN ---
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 (08/25/19) Weakness (08/25/19) History of falling (08/25/19) Physical Therapy Treatment Note PT-OP-A Visit Information Start: 07/02/19 07:28 Freq: Status: Active Protocol: Document 08/25/19 15:27 SP (Rec: 08/25/19 15:56 SP [email or web address]) Out-Patient Physical Therapy Visit Information Visit Information Visit Type Treatment Note Visit Start Time 14:32 Visit Stop Time 15:20 Total Visit Minutes 48 Visit Number 12 Number of SCRAP IRON CUTTER Visits 1 PT-OP-B Current Condition Start: 07/02/19 07:28 Freq: Status: Active Protocol: Document 07/02/19 14:34 AR (Rec: 07/02/19 15:57 AR [email or web address]) Current Condition History of Current Condition Onset Date CVA in 2013. Falls x3 & hospitalization 06/22/19 Current Complaints dec activitiy tolerance, poor balance, dec amb speed History of Current Condition Pt is a 63 y.o. 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 Pt has been seen at [facility] OP for PT, OT, ST over the past few years. He was recently hospitalized ( 06/22/19) for 3 falls in the same day. One fall occured in the shower and 2 occured getting out of bed. Since recent hospitalization, daughter reports she has seen a decline in his function in dec cognitive processing. Pt has dec stamina with walking, is more unstable on his feet, has been shuffling more and appears to have less coordination. Daughter saraives he fell on 06/22/19 was due to pain in his LLE (from RA). Pt reports no sensation on RLE. He has a hx of Rhemuatoid Arthritis, blood clots, depression, diabetes mellitus I, falls, depression, heart attack, pacemaker, neuropathy, and R elbow surgery. Pt amb w a large base quad cane and DF assist AFO. Pt has had multiple falls prior to most recent hospitalization that normally occur with transitional movements like getting out of bed or into a car, prabhu when he is tired. There is an incline and gravel on their driveway which his daughter believes may be contributing to the falls with car transfers. Pt has required 24/7 caregiving since his CVA in 2013, which is provided by his daughter during the daytime and his at nighttime. Prior Treatments and Tests PT, OT, ST. Has seen improvements with PT, but discontinued d/t plateauing of function. Future Testing and Treatments Planned OT at [facility], pt is on waiting list Treatment Goals Patient/Caregiver Goals To improve walking endurance, balance and to decrease fall risk. Prior Functional Status Baseline Function- ADL's Needs Assist Baseline Function- Mobility Needs Assist Baseline Function- Gait LBQC, AFO Baseline Function- Work/School NA Baseline Function- Recreation/Hobbies Able to ride in car with his daughter to drop of grandchildren at school. Able to amb short distances in the community w/LBQC. Able to use motorized carts at larger stores PT-OP-C Subjective Start: 07/02/19 07:28 Freq: Status: Active Protocol: Document 08/25/19 15:27 SP (Rec: 08/25/19 15:56 SP [email or web address]) OP-PT Subjective Patient Comments Patient Comments Pt stated no pain or changes to report since last visit. PT-OP-D Balance Start: 07/02/19 07:28 Freq: Status: Active Protocol: Document 07/02/19 14:34 AR (Rec: 07/02/19 15:57 AR [email or web address]) OP-PT Balance Assessment Sitting Balance Static Sitting Balance Ability Normal Standing Balance Static Standing Balance Ability Fair Device Used none Standing Balance Comments Fair standing balance with LBQC near by Tinetti Balance Assessment Sitting Balance Sitting Balance Steady, safe Arising from Chair Ability to Arise Able, uses arms to help Attempts to Arise Able, requires >1 attempt Standing Balance Immediate Standing Balance Steady with support Standing Balance Steady, wide stance Nudged Response Staggers, catches self Standing with Eyes Closed Steady Turning Step Pattern Turning 360 Degrees Discontinuous steps Stability Turning 360 Degrees Unsteady, grabs/staggers Sitting Down Sitting Down Uses arms or unsteady Gait and Step Initiation of Gait Hesitancy, mult. attempts Right Foot Step Length Does pass stance foot Right Foot Step Height Completely clears floor Left Foot Step Length Does not pass stance foot Left Foot Step Height Completely clears floor Step Description Step Symmetry Step length not equal Step Continuity Steps appear continuous Gait Description Path Description Mild/moderate deviation Trunk Description Marked sway or uses aide Walking Stance Heels apart Scoring and Interpretation Tinetti Composite Score (points) 13 Interpretation of Scores High risk for falls(< 19) Tinetti Impairment Rating from Composite 40 to <60% Impaired (Score 12- Score 16) Estrella Fall Scale Copyright Permission PT-OP-E Functional Tests Start: 07/02/19 07:28 Freq: Status: Active Protocol: Document 08/25/19 15:27 SP (Rec: 08/25/19 15:56 SP [email or web address]) Functional Tests 6 Minute Walk Test Distance 224 ft Device Used large base quad cane Comments cued increase LLE step passed RLE PT-OP-G Mobility & Gait Start: 07/02/19 07:28 Freq: Status: Active Protocol: Document 07/02/19 14:34 AR (Rec: 07/02/19 15:57 AR [email or web address]) OP Mobility Evaluation Transfers Sit to Stand Heavy use of LUE to push up from chair. Pt had some instability with rising from chair. OP Gait Assessment Gait Gait Assistance Required: Contact Guard Assist Distance (Feet) 250 Assistive Devices Assistive Device Large Based Quad Cane Orthotic/Prosthetic Devices or Brace: Yes Gait Deviations General Gait Pattern Decreased Stride Length, Decreased Feet Clearance Factors Limiting Gait Function Factors Limiting Gait Function Abnormal Tonal Influences, Decreased Activity Tolerance, Decreased Sensation,Decreased Strength,Incoordination, Limited Range of Motion,Pain, Poor Balance,Poor Safety Awareness Comments Gait Comments Pt had dec step length on L side d/t instability on RLE. Heavy leaning on LBQC for support, prabhu toward end of the 6MWT. Pt had 3 LOB but was able to catch himself before falling. One LOB d/t pt catching L toes (significant in-toeing on LLE). Other LOB seemed to be d/t weakness and fatigue of LLE. PT-OP-M Strength Start: 07/02/19 07:28 Freq: Status: Active Protocol: Document 07/02/19 14:34 AR (Rec: 07/02/19 15:57 AR [email or web address]) Hip Strength Hip Manual Muscle Testing Left Flexion (L2) 3- Fair- Right Flexion (L2) 3+ Fair+ Knee Strength Knee Manual Muscle Testing Left Flexion (S2) 4+ Good+ Extension (L3) 2- Poor- Comments Pt may have not understood instruction for knee flex testing. He was able to slide foot under chair with minimal use of LUE. Right Flexion (S2) 5 Normal Extension (L3) 5 Normal Ankle/Foot Strength Ankle and Foot Manual Muscle Testing Left Dorsiflexion (L4) 1 Trace Plantarflexion (S1) 3+ Fair+ Right Dorsiflexion (L4) 4 Good Plantarflexion (S1) 5 Normal Toe Strength Toe Manual Muscle Testing Right Great Toe Extension 1 Trace PT-OP-Q Treatments Start: 07/02/19 07:28 Freq: Status: Active Protocol: Document 08/25/19 15:27 SP (Rec: 08/25/19 15:56 SP [email or web address]) Cardio Equipment Recumbent Elliptical (Biodex) Duration (Minutes) 8 Resistance 2 Seat Position 7 Gait Training Gait Activity gait Description gait Device Used LBQC Level of Assistance SBA Surface level Treatment Focus even step length and distribution Comments Pt was able to complete 6MWT with no stopped rests until last 30 sec, static standing at seat until complete time, increased endurance. Intermittent cues for increased LLE step length passed RLE. Neuro Re-Education Treatment Balance Activities fwd/back Details foward/backward/ side stepping Equipment //bars Reps/Duration 2x 10 ft laps each Comments 1. fwd/backward with rail on L 2. side stepping without rail support side steps Details step taps Surface level Equipment 4 step, //bar support using LUE Reps/Duration x10 alternating BLE Comments Cued increased hip flexion hurdles Details forward, side stepping R and L Surface level Equipment 4 hurdles, //bar support using LUE Reps/Duration 10 ft x2 laps each Comments cued for increased hip and knee flexion for clearance and patterning foot placement when needed for safety NBOS Details NBOS, feet together Surface firm Reps/Duration 1 min Comments able to self correct COG PT-OP-T Assessment and Plan Start: 07/02/19 07:28 Freq: Status: Active Protocol: Document 08/25/19 15:27 SP (Rec: 08/25/19 15:56 SP [email or web address]) Physical Therapy Assessment Assessment Summary Assessment Pt displayed increased step length with his LLE more consistantly than when arrived after stepping activities. Pt was unable to foward step without contact support but was able to side stepping. Pt is making gains in gait endurance with ability to complete 6MWT. Physical Therapy Plan Frequency and Duration Frequency of Treatment 1-2x/wk Duration of Treatment 3 months Plan of Care Start Date 07/02/19 Plan of Care End Date 10/02/19 Therapeutic Interventions Therapeutic Interventions Balance Training,Gait Training ,Home Exercise Program,Manual Therapy,Neuromuscular Re- education,Patient/Caregiver Education,Self-Care/Home Management,Soft Tissue Mobilization,Therapeutic Activities,Therapeutic Exercises Next Visit Focus/Plan Next Note Type Treatment Note Next Visit Plan gait training and activity tolerance with single point cane, continue to work on balance especially weight shifting and narrow NATE, LE strengthening/stability
--- NOTE | 2019-08-28 15:17 | PT.OTN ---
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 (08/28/19) Weakness (08/28/19) History of falling (08/28/19) Physical Therapy Treatment Note PT-OP-A Visit Information Start: 07/02/19 07:28 Freq: Status: Active Protocol: Document 08/28/19 15:17 SP (Rec: 08/28/19 15:43 SP [email or web address]) Out-Patient Physical Therapy Visit Information Visit Information Visit Type Treatment Note Visit Start Time 14:32 Visit Stop Time 15:17 Total Visit Minutes 45 Visit Number 13 Number of RENTAL CLERK Visits 2 PT-OP-B Current Condition Start: 07/02/19 07:28 Freq: Status: Active Protocol: Document 07/02/19 14:34 AR (Rec: 07/02/19 15:57 AR [email or web address]) Current Condition History of Current Condition Onset Date CVA in 2013. Falls x3 & hospitalization 06/22/19 Current Complaints dec activitiy tolerance, poor balance, dec amb speed History of Current Condition Pt is a 63 y.o. 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 Pt has been seen at [facility] OP for PT, OT, ST over the past few years. He was recently hospitalized ( 06/22/19) for 3 falls in the same day. One fall occured in the shower and 2 occured getting out of bed. Since recent hospitalization, daughter reports she has seen a decline in his function in dec cognitive processing. Pt has dec stamina with walking, is more unstable on his feet, has been shuffling more and appears to have less coordination. Daughter saraives he fell on 06/22/19 was due to pain in his LLE (from RA). Pt reports no sensation on RLE. He has a hx of Rhemuatoid Arthritis, blood clots, depression, diabetes mellitus I, falls, depression, heart attack, pacemaker, neuropathy, and R elbow surgery. Pt amb w a large base quad cane and DF assist AFO. Pt has had multiple falls prior to most recent hospitalization that normally occur with transitional movements like getting out of bed or into a car, prabhu when he is tired. There is an incline and gravel on their driveway which his daughter believes may be contributing to the falls with car transfers. Pt has required 24/7 caregiving since his CVA in 2013, which is provided by his daughter during the daytime and his at nighttime. Prior Treatments and Tests PT, OT, ST. Has seen improvements with PT, but discontinued d/t plateauing of function. Future Testing and Treatments Planned OT at [facility], pt is on waiting list Treatment Goals Patient/Caregiver Goals To improve walking endurance, balance and to decrease fall risk. Prior Functional Status Baseline Function- ADL's Needs Assist Baseline Function- Mobility Needs Assist Baseline Function- Gait LBQC, AFO Baseline Function- Work/School NA Baseline Function- Recreation/Hobbies Able to ride in car with his daughter to drop of grandchildren at school. Able to amb short distances in the community w/LBQC. Able to use motorized carts at larger stores PT-OP-C Subjective Start: 07/02/19 07:28 Freq: Status: Active Protocol: Document 08/28/19 15:17 SP (Rec: 08/28/19 15:43 SP [email or web address]) OP-PT Subjective Patient Comments Patient Comments Pt shook his head no changes, concerns or pain pre PT or since last tx. PT-OP-D Balance Start: 07/02/19 07:28 Freq: Status: Active Protocol: Document 07/02/19 14:34 AR (Rec: 07/02/19 15:57 AR [email or web address]) OP-PT Balance Assessment Sitting Balance Static Sitting Balance Ability Normal Standing Balance Static Standing Balance Ability Fair Device Used none Standing Balance Comments Fair standing balance with LBQC near by Tinetti Balance Assessment Sitting Balance Sitting Balance Steady, safe Arising from Chair Ability to Arise Able, uses arms to help Attempts to Arise Able, requires >1 attempt Standing Balance Immediate Standing Balance Steady with support Standing Balance Steady, wide stance Nudged Response Staggers, catches self Standing with Eyes Closed Steady Turning Step Pattern Turning 360 Degrees Discontinuous steps Stability Turning 360 Degrees Unsteady, grabs/staggers Sitting Down Sitting Down Uses arms or unsteady Gait and Step Initiation of Gait Hesitancy, mult. attempts Right Foot Step Length Does pass stance foot Right Foot Step Height Completely clears floor Left Foot Step Length Does not pass stance foot Left Foot Step Height Completely clears floor Step Description Step Symmetry Step length not equal Step Continuity Steps appear continuous Gait Description Path Description Mild/moderate deviation Trunk Description Marked sway or uses aide Walking Stance Heels apart Scoring and Interpretation Tinetti Composite Score (points) 13 Interpretation of Scores High risk for falls(< 19) Tinetti Impairment Rating from Composite 40 to <60% Impaired (Score 12- Score 16) Estrella Fall Scale Copyright Permission PT-OP-E Functional Tests Start: 07/02/19 07:28 Freq: Status: Active Protocol: Document 08/25/19 15:27 SP (Rec: 08/25/19 15:56 SP [email or web address]) Functional Tests 6 Minute Walk Test Distance 224 ft Device Used large base quad cane Comments cued increase LLE step passed RLE PT-OP-G Mobility & Gait Start: 07/02/19 07:28 Freq: Status: Active Protocol: Document 07/02/19 14:34 AR (Rec: 07/02/19 15:57 AR [email or web address]) OP Mobility Evaluation Transfers Sit to Stand Heavy use of LUE to push up from chair. Pt had some instability with rising from chair. OP Gait Assessment Gait Gait Assistance Required: Contact Guard Assist Distance (Feet) 250 Assistive Devices Assistive Device Large Based Quad Cane Orthotic/Prosthetic Devices or Brace: Yes Gait Deviations General Gait Pattern Decreased Stride Length, Decreased Feet Clearance Factors Limiting Gait Function Factors Limiting Gait Function Abnormal Tonal Influences, Decreased Activity Tolerance, Decreased Sensation,Decreased Strength,Incoordination, Limited Range of Motion,Pain, Poor Balance,Poor Safety Awareness Comments Gait Comments Pt had dec step length on L side d/t instability on RLE. Heavy leaning on LBQC for support, prabhu toward end of the 6MWT. Pt had 3 LOB but was able to catch himself before falling. One LOB d/t pt catching L toes (significant in-toeing on LLE). Other LOB seemed to be d/t weakness and fatigue of LLE. PT-OP-M Strength Start: 07/02/19 07:28 Freq: Status: Active Protocol: Document 07/02/19 14:34 AR (Rec: 07/02/19 15:57 AR [email or web address]) Hip Strength Hip Manual Muscle Testing Left Flexion (L2) 3- Fair- Right Flexion (L2) 3+ Fair+ Knee Strength Knee Manual Muscle Testing Left Flexion (S2) 4+ Good+ Extension (L3) 2- Poor- Comments Pt may have not understood instruction for knee flex testing. He was able to slide foot under chair with minimal use of LUE. Right Flexion (S2) 5 Normal Extension (L3) 5 Normal Ankle/Foot Strength Ankle and Foot Manual Muscle Testing Left Dorsiflexion (L4) 1 Trace Plantarflexion (S1) 3+ Fair+ Right Dorsiflexion (L4) 4 Good Plantarflexion (S1) 5 Normal Toe Strength Toe Manual Muscle Testing Right Great Toe Extension 1 Trace PT-OP-Q Treatments Start: 07/02/19 07:28 Freq: Status: Active Protocol: Document 08/28/19 15:17 SP (Rec: 08/28/19 15:43 SP [email or web address]) Cardio Equipment Recumbent Elliptical (Biodex) Duration (Minutes) 8 Resistance 2 Seat Position 7 Gait Training Gait Activity Stair Mgt Description 3 step ascend forward/descend backward Device Used LHR Level of Assistance CGA Treatment Focus balance and glut strengthening Comments Cued for completing 4 steps then turn around, pt paused then continued descending backward, no LOB. gait Description gait Device Used SPC Level of Assistance SBA Surface level Distance/Duration 87', 100' Treatment Focus even step length and distribution Comments cued feet parallel (decrease toe in), increase stride, SPC positioning closer. Noted deviation to L but pt self corrected. Neuro Re-Education Treatment Balance Activities fwd/back Details foward/backward/ side stepping Equipment none Reps/Duration 2x 10 ft laps each Comments 1. fwd/backward with rail on L 2. side stepping without rail support NBOS Details NBOS, feet together EC Surface firm Reps/Duration 20 sec Comments able to self correct COG stagger stance Details modified tandem stance B compliant surface Surface firm Reps/Duration 30 sec RLE positioned forward position Comments EO self corrected wt shift from R x1 occurance, EC multiple self corrects required Min support recover from wt shift R at 8 sec. PT-OP-T Assessment and Plan Start: 07/02/19 07:28 Freq: Status: Active Protocol: Document 08/28/19 15:17 SP (Rec: 08/28/19 15:43 SP [email or web address]) Physical Therapy Assessment Assessment Summary Assessment Pt displayed improvement in forward, backward, side stepping gait in //bar with no AD today, cued for increased RLE knee flexion to improve foot clearance. Pt displayed good balance during stair mgt. management, has 3 stairs to enter home with LHR. Physical Therapy Plan Frequency and Duration Frequency of Treatment 1-2x/wk Duration of Treatment 3 months Plan of Care Start Date 07/02/19 Plan of Care End Date 10/02/19 Therapeutic Interventions Therapeutic Interventions Balance Training,Gait Training ,Home Exercise Program,Manual Therapy,Neuromuscular Re- education,Patient/Caregiver Education,Self-Care/Home Management,Soft Tissue Mobilization,Therapeutic Activities,Therapeutic Exercises Next Visit Focus/Plan Next Note Type Treatment Note Next Visit Plan gait training and activity tolerance with single point cane, continue to work on balance especially weight shifting and narrow NATE, LE strengthening/stability
--- NOTE | 2019-09-01 15:19 | PT.OTN ---
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 (09/01/19) Weakness (09/01/19) History of falling (09/01/19) Physical Therapy Treatment Note PT-OP-A Visit Information Start: 07/02/19 07:28 Freq: Status: Active Protocol: Document 09/01/19 15:19 SP (Rec: 09/01/19 15:50 SP [email or web address]) Out-Patient Physical Therapy Visit Information Visit Information Visit Type Treatment Note Visit Start Time 14:24 Visit Stop Time 15:19 Total Visit Minutes 55 Visit Number 14 Number of MAITRE D' Visits 3 PT-OP-B Current Condition Start: 07/02/19 07:28 Freq: Status: Active Protocol: Document 07/02/19 14:34 AR (Rec: 07/02/19 15:57 AR [email or web address]) Current Condition History of Current Condition Onset Date CVA in 2013. Falls x3 & hospitalization 06/22/19 Current Complaints dec activitiy tolerance, poor balance, dec amb speed History of Current Condition Pt is a 63 y.o. 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 Pt has been seen at [facility] OP for PT, OT, ST over the past few years. He was recently hospitalized ( 06/22/19) for 3 falls in the same day. One fall occured in the shower and 2 occured getting out of bed. Since recent hospitalization, daughter reports she has seen a decline in his function in dec cognitive processing. Pt has dec stamina with walking, is more unstable on his feet, has been shuffling more and appears to have less coordination. Daughter saraives he fell on 06/22/19 was due to pain in his LLE (from RA). Pt reports no sensation on RLE. He has a hx of Rhemuatoid Arthritis, blood clots, depression, diabetes mellitus I, falls, depression, heart attack, pacemaker, neuropathy, and R elbow surgery. Pt amb w a large base quad cane and DF assist AFO. Pt has had multiple falls prior to most recent hospitalization that normally occur with transitional movements like getting out of bed or into a car, prabhu when he is tired. There is an incline and gravel on their driveway which his daughter believes may be contributing to the falls with car transfers. Pt has required 24/7 caregiving since his CVA in 2013, which is provided by his daughter during the daytime and his at nighttime. Prior Treatments and Tests PT, OT, ST. Has seen improvements with PT, but discontinued d/t plateauing of function. Future Testing and Treatments Planned OT at [facility], pt is on waiting list Treatment Goals Patient/Caregiver Goals To improve walking endurance, balance and to decrease fall risk. Prior Functional Status Baseline Function- ADL's Needs Assist Baseline Function- Mobility Needs Assist Baseline Function- Gait LBQC, AFO Baseline Function- Work/School NA Baseline Function- Recreation/Hobbies Able to ride in car with his daughter to drop of grandchildren at school. Able to amb short distances in the community w/LBQC. Able to use motorized carts at larger stores PT-OP-C Subjective Start: 07/02/19 07:28 Freq: Status: Active Protocol: Document 09/01/19 15:19 SP (Rec: 09/01/19 15:50 SP [email or web address]) OP-PT Subjective Patient Comments Patient Comments Pt was walking with longer stride and feet parallel with less LUE weight through LBQC upon arrival. PT-OP-D Balance Start: 07/02/19 07:28 Freq: Status: Active Protocol: Document 07/02/19 14:34 AR (Rec: 07/02/19 15:57 AR [email or web address]) OP-PT Balance Assessment Sitting Balance Static Sitting Balance Ability Normal Standing Balance Static Standing Balance Ability Fair Device Used none Standing Balance Comments Fair standing balance with LBQC near by Tinetti Balance Assessment Sitting Balance Sitting Balance Steady, safe Arising from Chair Ability to Arise Able, uses arms to help Attempts to Arise Able, requires >1 attempt Standing Balance Immediate Standing Balance Steady with support Standing Balance Steady, wide stance Nudged Response Staggers, catches self Standing with Eyes Closed Steady Turning Step Pattern Turning 360 Degrees Discontinuous steps Stability Turning 360 Degrees Unsteady, grabs/staggers Sitting Down Sitting Down Uses arms or unsteady Gait and Step Initiation of Gait Hesitancy, mult. attempts Right Foot Step Length Does pass stance foot Right Foot Step Height Completely clears floor Left Foot Step Length Does not pass stance foot Left Foot Step Height Completely clears floor Step Description Step Symmetry Step length not equal Step Continuity Steps appear continuous Gait Description Path Description Mild/moderate deviation Trunk Description Marked sway or uses aide Walking Stance Heels apart Scoring and Interpretation Tinetti Composite Score (points) 13 Interpretation of Scores High risk for falls(< 19) Tinetti Impairment Rating from Composite 40 to <60% Impaired (Score 12- Score 16) Estrella Fall Scale Copyright Permission PT-OP-E Functional Tests Start: 07/02/19 07:28 Freq: Status: Active Protocol: Document 08/25/19 15:27 SP (Rec: 08/25/19 15:56 SP [email or web address]) Functional Tests 6 Minute Walk Test Distance 224 ft Device Used large base quad cane Comments cued increase LLE step passed RLE PT-OP-G Mobility & Gait Start: 07/02/19 07:28 Freq: Status: Active Protocol: Document 07/02/19 14:34 AR (Rec: 07/02/19 15:57 AR [email or web address]) OP Mobility Evaluation Transfers Sit to Stand Heavy use of LUE to push up from chair. Pt had some instability with rising from chair. OP Gait Assessment Gait Gait Assistance Required: Contact Guard Assist Distance (Feet) 250 Assistive Devices Assistive Device Large Based Quad Cane Orthotic/Prosthetic Devices or Brace: Yes Gait Deviations General Gait Pattern Decreased Stride Length, Decreased Feet Clearance Factors Limiting Gait Function Factors Limiting Gait Function Abnormal Tonal Influences, Decreased Activity Tolerance, Decreased Sensation,Decreased Strength,Incoordination, Limited Range of Motion,Pain, Poor Balance,Poor Safety Awareness Comments Gait Comments Pt had dec step length on L side d/t instability on RLE. Heavy leaning on LBQC for support, prabhu toward end of the 6MWT. Pt had 3 LOB but was able to catch himself before falling. One LOB d/t pt catching L toes (significant in-toeing on LLE). Other LOB seemed to be d/t weakness and fatigue of LLE. PT-OP-M Strength Start: 07/02/19 07:28 Freq: Status: Active Protocol: Document 07/02/19 14:34 AR (Rec: 07/02/19 15:57 AR [email or web address]) Hip Strength Hip Manual Muscle Testing Left Flexion (L2) 3- Fair- Right Flexion (L2) 3+ Fair+ Knee Strength Knee Manual Muscle Testing Left Flexion (S2) 4+ Good+ Extension (L3) 2- Poor- Comments Pt may have not understood instruction for knee flex testing. He was able to slide foot under chair with minimal use of LUE. Right Flexion (S2) 5 Normal Extension (L3) 5 Normal Ankle/Foot Strength Ankle and Foot Manual Muscle Testing Left Dorsiflexion (L4) 1 Trace Plantarflexion (S1) 3+ Fair+ Right Dorsiflexion (L4) 4 Good Plantarflexion (S1) 5 Normal Toe Strength Toe Manual Muscle Testing Right Great Toe Extension 1 Trace PT-OP-Q Treatments Start: 07/02/19 07:28 Freq: Status: Active Protocol: Document 09/01/19 15:19 SP (Rec: 09/01/19 15:50 SP [email or web address]) Cardio Equipment Recumbent Elliptical (Biodex) Duration (Minutes) 8 Resistance 3 (1.5 min), 2 (1.5 min), 1 (5 min) Seat Position 7 Other cued LLE heel press for DF ROM Therapeutic Exercises Standing Exercises squats Equipment Used rail Reps/Minutes 2x5 Gait Training Gait Activity gait Description gait Device Used SPC, gait belt Level of Assistance CGA Surface level Distance/Duration 152 ft Treatment Focus even step length and distribution, endurance Comments cued feet parallel (decrease toe in) and slower pacing, noted increase stride with upright posture. 2 brief stopped rests for recovery. Neuro Re-Education Treatment Balance Activities uneven surface Details normal stance Surface blue foam oval cushion Equipment at rail Reps/Duration 10 sec EC Comments contact rail to stand onto cushion COG over NATE fwd/back Details foward/backward/ side stepping Equipment none Reps/Duration 2x 20 ft laps each Comments 1. fwd/backward with rail on L 2. side stepping without rail support side steps Details with SPC foward and side step Surface level Equipment over dowel on floor Reps/Duration 20 ft 1 lap each direction Comments occasional cues for increased hip flexion for RLE advancement and foot clearance , closer to dowel before stepping over. PT-OP-T Assessment and Plan Start: 07/02/19 07:28 Freq: Status: Active Protocol: Document 09/01/19 15:19 SP (Rec: 09/01/19 15:50 SP [email or web address]) Physical Therapy Assessment Assessment Summary Assessment Pt improved with standing endurance using SPC, able to tolerate increased lengths standing balance activities today and complete longer ambulation. Continued intermittent cues for upright posture and feet parallel for improvement in stride and decrease LUE WB on SPC. Physical Therapy Plan Frequency and Duration Frequency of Treatment 1-2x/wk Duration of Treatment 3 months Plan of Care Start Date 07/02/19 Plan of Care End Date 10/02/19 Therapeutic Interventions Therapeutic Interventions Balance Training,Gait Training ,Home Exercise Program,Manual Therapy,Neuromuscular Re- education,Patient/Caregiver Education,Self-Care/Home Management,Soft Tissue Mobilization,Therapeutic Activities,Therapeutic Exercises Next Visit Focus/Plan Next Note Type Treatment Note Next Visit Plan gait training and activity tolerance with single point cane, continue to work on balance especially weight shifting and narrow NATE, LE strengthening/stability
--- NOTE | 2019-09-07 08:34 | PT.OPDS ---
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 (09/01/19) Weakness (09/01/19) History of falling (09/01/19) Visit Care Team Role Provider Type Delfnio Epstein MD Attending Provider Physician Primary Care Provider Specialty: Family Practice Address: [address] [place] [address], [id number] Email: [email or web address] Visit Number Visit Number 14 Discharge Summary PT-OP-B Current Condition Start: 07/02/19 07:28 Freq: Status: Active Protocol: Document 07/02/19 14:34 [facility] (Rec: 07/02/19 15:57 AR [email or web address]) Current Condition History of Current Condition Onset Date CVA in 2013. Falls x3 & hospitalization 06/22/19 Current Complaints dec activitiy tolerance, poor balance, dec amb speed History of Current Condition Pt is a 63 y.o. 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 Pt has been seen at [facility] OP for PT, OT, ST over the past few years. He was recently hospitalized ( 06/22/19) for 3 falls in the same day. One fall occured in the shower and 2 occured getting out of bed. Since recent hospitalization, daughter reports she has seen a decline in his function in dec cognitive processing. Pt has dec stamina with walking, is more unstable on his feet, has been shuffling more and appears to have less coordination. Daughter belives he fell on 06/22/19 was due to pain in his LLE (from RA). Pt reports no sensation on RLE. He has a hx of Rhemuatoid Arthritis, blood clots, depression, diabetes mellitus I, falls, depression, heart attack, pacemaker, neuropathy, and R elbow surgery. Pt amb w a large base quad cane and DF assist AFO. Pt has had multiple falls prior to most recent hospitalization that normally occur with transitional movements like getting out of bed or into a car, prabhu when he is tired. There is an incline and gravel on their driveway which his daughter believes may be contributing to the falls with car transfers. Pt has required 24/7 caregiving since his CVA in 2013, which is provided by his daughter during the daytime and his at nighttime. Prior Treatments and Tests PT, OT, ST. Has seen improvements with PT, but discontinued d/t plateauing of function. Future Testing and Treatments Planned OT at [facility], pt is on waiting list Treatment Goals Patient/Caregiver Goals To improve walking endurance, balance and to decrease fall risk. Prior Functional Status Baseline Function- ADL's Needs Assist Baseline Function- Mobility Needs Assist Baseline Function- Gait LBQC, AFO Baseline Function- Work/School NA Baseline Function- Recreation/Hobbies Able to ride in car with his daughter to drop of grandchildren at school. Able to amb short distances in the community w/LBQC. Able to use motorized carts at larger stores PT-OP-C Subjective Start: 07/02/19 07:28 Freq: Status: Active Protocol: Document 09/01/19 15:19 SP (Rec: 09/01/19 15:50 SP [email or web address]) OP-PT Subjective Patient Comments Patient Comments Pt was walking with longer stride and feet parallel with less LUE weight through LBQC upon arrival. PT-OP-D Balance Start: 07/02/19 07:28 Freq: Status: Active Protocol: Document 07/02/19 14:34 AR (Rec: 07/02/19 15:57 AR [email or web address]) OP-PT Balance Assessment Sitting Balance Static Sitting Balance Ability Normal Standing Balance Static Standing Balance Ability Fair Device Used none Standing Balance Comments Fair standing balance with LBQC near by Tinetti Balance Assessment Sitting Balance Sitting Balance Steady, safe Arising from Chair Ability to Arise Able, uses arms to help Attempts to Arise Able, requires >1 attempt Standing Balance Immediate Standing Balance Steady with support Standing Balance Steady, wide stance Nudged Response Staggers, catches self Standing with Eyes Closed Steady Turning Step Pattern Turning 360 Degrees Discontinuous steps Stability Turning 360 Degrees Unsteady, grabs/staggers Sitting Down Sitting Down Uses arms or unsteady Gait and Step Initiation of Gait Hesitancy, mult. attempts Right Foot Step Length Does pass stance foot Right Foot Step Height Completely clears floor Left Foot Step Length Does not pass stance foot Left Foot Step Height Completely clears floor Step Description Step Symmetry Step length not equal Step Continuity Steps appear continuous Gait Description Path Description Mild/moderate deviation Trunk Description Marked sway or uses aide Walking Stance Heels apart Scoring and Interpretation Tinetti Composite Score (points) 13 Interpretation of Scores High risk for falls(< 19) Tinetti Impairment Rating from Composite 40 to <60% Impaired (Score 12- Score 16) Estrella Fall Scale Copyright Permission PT-OP-E Functional Tests Start: 07/02/19 07:28 Freq: Status: Active Protocol: Document 08/25/19 15:27 SP (Rec: 08/25/19 15:56 SP [email or web address]) Functional Tests 6 Minute Walk Test Distance 224 ft Device Used large base quad cane Comments cued increase LLE step passed RLE PT-OP-G Mobility & Gait Start: 07/02/19 07:28 Freq: Status: Active Protocol: Document 07/02/19 14:34 AR (Rec: 07/02/19 15:57 AR [email or web address]) OP Mobility Evaluation Transfers Sit to Stand Heavy use of LUE to push up from chair. Pt had some instability with rising from chair. OP Gait Assessment Gait Gait Assistance Required: Contact Guard Assist Distance (Feet) 250 Assistive Devices Assistive Device Large Based Quad Cane Orthotic/Prosthetic Devices or Brace: Yes Gait Deviations General Gait Pattern Decreased Stride Length, Decreased Feet Clearance Factors Limiting Gait Function Factors Limiting Gait Function Abnormal Tonal Influences, Decreased Activity Tolerance, Decreased Sensation,Decreased Strength,Incoordination, Limited Range of Motion,Pain, Poor Balance,Poor Safety Awareness Comments Gait Comments Pt had dec step length on L side d/t instability on RLE. Heavy leaning on LBQC for support, prabhu toward end of the 6MWT. Pt had 3 LOB but was able to catch himself before falling. One LOB d/t pt catching L toes (significant in-toeing on LLE). Other LOB seemed to be d/t weakness and fatigue of LLE. PT-OP-M Strength Start: 07/02/19 07:28 Freq: Status: Active Protocol: Document 07/02/19 14:34 AR (Rec: 07/02/19 15:57 AR [email or web address]) Hip Strength Hip Manual Muscle Testing Left Flexion (L2) 3- Fair- Right Flexion (L2) 3+ Fair+ Knee Strength Knee Manual Muscle Testing Left Flexion (S2) 4+ Good+ Extension (L3) 2- Poor- Comments Pt may have not understood instruction for knee flex testing. He was able to slide foot under chair with minimal use of LUE. Right Flexion (S2) 5 Normal Extension (L3) 5 Normal Ankle/Foot Strength Ankle and Foot Manual Muscle Testing Left Dorsiflexion (L4) 1 Trace Plantarflexion (S1) 3+ Fair+ Right Dorsiflexion (L4) 4 Good Plantarflexion (S1) 5 Normal Toe Strength Toe Manual Muscle Testing Right Great Toe Extension 1 Trace PT-OP-T Assessment and Plan Start: 07/02/19 07:28 Freq: Status: Active Protocol: Document 09/07/19 08:32 [facility] (Rec: 09/07/19 08:34 [facility] [id number]) Physical Therapy Assessment Assessment Summary Assessment Pt was doing well with his progress with activities in OP PT but had GLF occur at home and was admittted to the hospital. He was d/c home w/HH PT and is therefore d/c from OP PT. Physical Therapy Plan Discharge Physical Therapy Discharge Reasons Change in Medical Status
== END 2019-09-01 15:30 | disposition home or self-care (01) ==
LOC: PHYS 14:30
PROVIDERS: PCP Family Medicine; Visit Provider Family Medicine
DX: R53.1 Weakness (principal); I69.359 Hemiplegia and hemiparesis following cerebral infarction affecting unspecified side; Z91.81 History of falling
CPT/HCPCS: 97110; 97112; 97116; 97162; 97530

== ENCOUNTER 2019-09-02 01:11 | Inpatient (IN) | payer OTHER, MEDICARE, MEDICAID, SELFPAY ==
[2019-06-22 18:31] VITALS: BMI 24.5
[2019-09-02] VITALS (12 sets, daily range): BP systolic 99–155; BP diastolic 48–81; PULSE 55–99; RESP 14–22; TEMP 36.4–36.9; O2SAT 95–100; BMI 23.4
--- NOTE | 2019-09-02 01:13 | DI.CT.S_ITS ---
PROCEDURE: CT CERVICAL SPINE WO CON INDICATIONS: fall, head injury, mental status change TECHNIQUE: Noncontrast 3 mm thick sections acquired from the skull base to the T4 level. Sagittal and coronal reformats were then constructed. For radiation dose reduction, the following was used: automated exposure control, adjustment of mA and/or kV according to patient size. COMPARISON: None. FINDINGS: Image quality: Excellent. Bones: No fractures or dislocations. Visualized superior ribs are intact. Spine degenerative disc disease and facet arthropathy. Soft tissues: Prevertebral soft tissues are normal in thickness. No paravertebral hematomas. No apical pneumothoraces. Left chest wall cardiac pacer partially visualized. 1.1 cm partially calcified left thyroid nodule. IMPRESSION: No fracture. No acute osseous lesion. If symptoms and/or clinical suspicion for pathology persists, evaluation with MRI may be helpful for further assessment. Dictated by: Kinjal Snow MD, PhD on 09/02/2019 at 7:57 Approved by: Kinjal Snow MD, PhD on 09/02/2019 at 8:01
--- NOTE | 2019-09-02 01:13 | DI.CT.S_ITS ---
PROCEDURE: CT HEAD/BRAIN WO CON INDICATIONS: fall, head injury, pradaxa TECHNIQUE: Noncontrast 4.5 mm thick angled axial sections acquired from the foramen magnum to the vertex, with coronal and sagittal reformats. For radiation dose reduction, the following was used: automated exposure control, adjustment of mA and/or kV according to patient size. COMPARISON: [facility], CT, CT HEAD/BRAIN WO CON, 06/24/2019, 6:55. FINDINGS: Image quality: Excellent. CSF spaces: Basal cisterns are patent. No extra-axial fluid collections. The ventricles are symmetric in size and shape. Brain: No intracranial bleeds or masses. There is cerebral volume loss for age, with resultant ventricular and sulcal prominence. There are periventricular and deep white matter chronic small vessel ischemic changes. Chronic right MCA territory infarct is stable. There is intracranial internal carotid artery atherosclerosis. Skull and face: Calvarium and visualized facial bones appear intact, without suspicious lesions. Right periorbital facial soft tissue swelling/hematoma noted. Sinuses: Visualized sinuses and mastoids are clear. IMPRESSION: No acute intracranial disease process. Dictated by: Kinjal Snow MD, PhD on 09/02/2019 at 7:26 Approved by: Kinjal Snow MD, PhD on 09/02/2019 at 7:28
--- NOTE | 2019-09-02 01:16 | PC.NURSE ---
DR Delgado did quick exam on arrival then directly to ct scan.
[2019-09-02 01:46] LABS: Add Manual Diff / Slide Review NO; Basophils Absolute Auto 100 /uL (0-100); Basophils Percent Auto 1.6 % (0-2); Eosinophils Absolute Auto 100 /uL (0-450); Eosinophils Percent Auto 1.9 % (2-4); Hemoglobin 11.5 g/dL (13.5-17.5); Lymphocytes Absolute Auto 1100 /uL (1100-4500); Lymphocytes Percent Auto 16.8 % (25-40); Mean Corpuscular Volume 88.6 fL (80-100); Monocytes Absolute Auto 400 /uL (0-900); Monocytes Percent Auto 5.7 % (3-14); Neutrophils Absolute Auto 5000 /uL (1500-7000); Platelet Count 162 X10^3/uL (150-400); Red Blood Cell Count 3.72 X10^6/uL (4.5-5.9); Red Cell Distribution Width 14.7 % (11.6-14.8); White Blood Cell Count 6.7 X10^3/uL (4.5-11.0)
[2019-09-02 01:50] LABS: INR 1.2 (0.9-1.3); Prothrombin Time 13.6 SECONDS (10.1-12.7)
[2019-09-02 01:52] LABS: PTT Partial Thromboplastin Tim 41 SECONDS (26.4-36.2)
[2019-09-02 01:54] LABS: Blood Urea Nitrogen 17 mg/dL (9-20); Calcium 8.7 mg/dL (8.4-10.2); Carbon Dioxide 24 mmol/L (22-32); Chloride 93 mmol/L (98-107); Estimated Glomerular Filt Rate > 60.0 mL/min (>60); Glucose 145 mg/dL (80-110); HEMOLYSIS 42 (0-50); Potassium 4.5 mmol/L (3.4-5.1); Sodium 126 mmol/L (137-145)
--- NOTE | 2019-09-02 02:00 | PC.NURSE ---
Pt has 3 cm laceration to above right eye post unwitnessed GLF at home, family heard pt fall getting out of bed and immediately assisted pt, no loc, pt is on pradaxa. Hx of stroke with right sided hemiplegia. Pt arrives awake both eyes open, is mostly non verbal at baseline but able to nod or shake head to answer questions. Pt vomited a few times with EMS and incontinent of bowels upon arrival. is at bedside.
--- NOTE | 2019-09-02 02:00 | ED_ITS ---
HPI - Head Injury General Chief complaint: Trauma Stated complaint: GLF Time Seen by Provider: 09/02/19 01:12 Source: EMS Mode of arrival: EMS Limitations: physical limitation History of Present Illness HPI Narrative: 63-year-old male nonsmoker with extensive medical history including blood thinners, hypertension, hyperlipidemia, history of stroke with significant one-sided deficitsPresents by EMS for evaluation of a fall with head injury. There was a significant amount of blood surrounding the patient at home and he has a large laceration on his forehead. He has vomited since the head injury and per family not acting himself. He is chronically ill and in many ways at his baseline per family. He is nonverbal which is his base. He has had no recent illness. Normally ambulates with cane, communicates with one word answers. Went to physical therapy today. Details of the fall are unknown as he got out of bed without family knowing. Patient activated as a modified trauma give his history of a head injury while on blood thinners. Patient vomited a few times with EMS and lost control of his bowels MD Complaint: head injury and fall Onset (ago): minute(s) Mechanism of Injury: fall Place: home Loss of Consciousness: unsure Location of injury: frontal Severity: mild Other Injuries: none Context: other anticoagulant use Associated symptoms: denies other symptoms Related Data Home Medications Medication Instructions Recorded Confirmed spironolactone 25 mg tablet 12.5 mg PO QPM tab 12/03/18 07/07/19 Basaglar KwikPen U-100 Insulin 18 unit SUBCUT DAILY PRN 06/22/19 07/07/19 atorvastatin [Lipitor] 20 mg PO BEDTIME 06/22/19 07/07/19 citalopram 30 mg PO DAILY 06/22/19 07/07/19 folic acid 1 mg PO DAILY 06/22/19 07/07/19 lisinopril 10 mg PO QPM 06/22/19 07/07/19 vitamin [id number] 1 tab PO DAILY 06/22/19 07/07/19 Previous Rx's Medication Instructions Recorded insulin aspart U-100 100 unit/mL See Rx Instructions SUBCUT ACHS 10/14/18 subcutaneous solution #10 ml pen needle, diabetic 32 gauge x #100 each 10/24/1801/17 dabigatran etexilate 150 mg capsule 150 mg PO BID #60 cap 10/29/18 carvedilol 6.25 mg tablet 6.25 mg PO BID #180 tab 11/03/18 metformin [Glucophage] 1,000 mg PO BIDCC #60 tab 01/05/19 etanercept 50 mg/mL (1 mL) 50 mg SUBCUT QWEEK #3.92 ml 04/13/19 subcutaneous pen injector Disabled Parking Permit #1 each 05/25/19 tamsulosin 0.4 mg capsule 0.4 mg PO QPM #90 cap 07/20/19 sertraline 50 mg tablet See Rx Instructions PO DAILY #60 07/22/19 tab methotrexate sodium 2.5 mg tablet 7.5 mg PO QWEEK #12 tab 08/21/19 Allergies Allergy/AdvReac Type Severity Reaction Status Date / Time polyethylene glycol 3350 Allergy Intermediate HIVES Verified 07/07/19 14:17 [From Miralax] amoxicillin Allergy Mild RASH Verified 07/07/19 14:17 erythromycin base Allergy Mild RASH Verified 07/07/19 14:17 famotidine Allergy Mild RASH Verified 07/07/19 14:17 niacin Allergy Mild RASH Verified 07/07/19 14:17 codeine AdvReac Mild NAUSEA Verified 07/07/19 14:17 Review of Systems Constitutional Constitutional: Denies chills, Denies fatigue, Denies fever(s), Denies frequent falls, Denies lethargy and Denies weakness Eyes Eyes: Denies change in vision, Denies eye discharge, Denies irritation and Denies loss of vision ENT Ears, Nose, Mouth, and Throat: Denies change in voice, Denies dizziness, Denies neck pain, Denies sore throat and Denies throat swelling Cardiovascular Cardiovascular: Denies chest pain, Denies irregular heart rhythm, Denies lightheadedness, Denies palpitations, Denies dyspnea, Denies dyspnea on exertion and Denies orthopnea Respiratory Respiratory: Denies cough, Denies dyspnea, Denies dyspnea on exertion and Denies wheezing Gastrointestinal Gastrointestinal: Denies abdominal pain, Denies change in bowel habits, Reports diarrhea, Reports nausea and Reports vomiting Genitourinary Genitourinary: Denies hematuria, Denies flank pain, Denies urinary incontinence and Denies urinary urgency Musculoskeletal Musculoskeletal: Denies back pain, Denies muscle weakness, Denies neck pain, Denies numbness and Denies tingling Integumentary/Breasts Skin/Breast: Denies pruritus, Denies erythema, Denies rash and Reports wounds Neurologic Neurologic: Denies behavioral changes, Denies confusion, Denies dizziness, Denies frequent falls, Denies loss of vision, Denies numbness, Denies tingling and Denies weakness Psychiatric Psychiatric: Denies anxiety, Denies behavioral changes, Denies confusion, Denies depression, Denies homicidal ideation and Denies suicidal ideation Endocrine Endocrine: Denies fatigue, Denies flushing and Denies palpitations Hematologic/Lymphatic Hematologic/Lymphatic: Denies easy bruising Allergic/Immunologic Allergic/Immunologic: Denies urticaria, Denies throat swelling and Denies wheezing 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 (Chronic 09/01/15) Aphasia following cerebrovascular disease (Chronic 01/27/15) CAD (coronary artery disease) (Chronic) Cardiac arrhythmia (Chronic) Cerebrovascular accident (CVA) involving left middle cerebral artery territory (Chronic 09/01/15) Chronic atrial flutter (Chronic 09/01/15) Chronic systolic congestive heart failure (Chronic 09/01/15) Coronary artery disease involving [place] coronary artery of [place] heart without angina pectoris (Chronic 09/01/15) Diabetes mellitus (Chronic) DVT (deep venous thrombosis) (Resolved) Essential hypertension (Chronic 09/01/15) Hemiparesis affecting dominant side as late effect of cerebrovascular accident (Chronic 01/27/15) History of stroke with residual deficit (Chronic) Hyperlipidemia (Chronic 09/01/15) Hyperlipidemia (Chronic) Myocardial infarction (Resolved) Pacemaker (Chronic) Rheumatoid arthritis (Chronic) Stenosis of left carotid artery (Chronic 12/22/13) Systolic heart failure (Resolved) Type 2 diabetes mellitus (Chronic) Surgical History (Updated 06/22/19 @ 19:08 by Vidya Yao RN) AICD (automatic cardioverter/defibrillator) present (Acute) History of angioplasty (Resolved) Presence of cardiac pacemaker (Resolved) Social History marital status: household members: spouse Smoking Status: Never smoker alcohol intake: never substance use type: does not use alcohol intake frequency: 0-2 drinks per day Substance Use Type: does not use Exam Narrative Exam Narrative: GENERAL: [63] year old patient appears older than stated age. S calp wrapped, active bleeding from above right eye. Patient nonverbal, vomit on him, also covered in stool. HEAD: 3 cm laceration over right eye, active bleeding, no evidence of depressed skull fracture EYES: Pupils equal round and reactive. Extraocular motions intact. No scleral icterus. No injection or drainage. ENT: Nose without bleeding, purulent drainage. Throat without erythema, tonsilla r hypertrophy or exudate. Airway patent. NECK: Trachea midline. Non tender CARDIOVASCULAR: Regular rate and rhythm without murmurs, gallops, or rubs. RESPIRATORY: Clear to auscultation. Breath sounds equal bilaterally. No wheezes, rales, or rhonchi. GASTROINTESTINAL: Abdomen soft, non-tender, nondistended. EXTREMITIES: No edema or joint tenderness. BACK: Nontender without deformity or crepitance. No flank tenderness. NEURO: Awake with eyes open, able to ground in response to questions SKIN: No rash or erythema of visible areas Initial Vital Signs Initial Vital Signs: Vital Signs Pulse Rate 93 H 09/02/19 03:30 Respiratory Rate 17 09/02/19 03:30 Blood Pressure 104/81 09/02/19 03:30 Pulse Oximetry 100 09/02/19 03:30 Procedures Laceration Repair Laceration 1: Site: face Side (If applicable): right Size (cm): 3 Description: linear Depth: involves muscle layer Local Anesthetic: lidocaine 1% and with epi Amount of anesthesia used (mL): 4 Pre-repair: wound explored Skin layer closed with: nylon Size (cm): 5-0 Number of sutures: 3 Technique: simple, interrupted Subcutaneous layer closed with: vicryl Size: 4-0 Number of sutures: 1 Technique: simple, interrupted Course Orders Ordered: ED Orders 09/02/19 01:13 CT cervical spine wo con Stat CT head/brain wo con Stat 09/02/19 01:35 Basic Metabolic Panel Stat Complete Blood Count AUTO DIFF Stat Partial Thromboplastin Time Stat Prothrombin Time INR Stat Discontinued Medications Sodium Chloride (Normal Saline 0.9%) 500 mls @ 1,000 mls/hr IV BOLUS ONE Stop: 09/02/19 02:49 Lidocaine/Epinephrine (Xylocaine 1% W/Epi) 1 ml SUBCUT NOW ONE Stop: 09/02/19 02:25 Consultations Consultation #1: Dr. Hicks happy to accept on behalf of Dr. Epstein, but requests we admit under Dr. Epstein MDM - Head Injury Lab Data Result diagrams: 09/02/19 01:35 09/02/19 01:35 Labs: Lab Results 09/02/19 09/02/19 09/02/19 Range/Units 01:35 01:35 01:35 WBC 6.7 (4.5-11.0) X10^3/uL RBC 3.72 L (4.5-5.9) X10^6/uL Hgb 11.5 L (13.5-17.5) g/dL Hct 33.0 L (41-53) % MCV 88.6 (80-100) fL MCH 31.0 (26-34) PG MCHC 35.0 (30-36) % RDW 14.7 (11.6-14.8) % Plt Count 162 (150-400) X10^3/uL Neut % (Auto) 74.0 (50-75) % Lymph % (Auto) 16.8 L (25-40) % [place] % (Auto) 5.7 (3-14) % Eos % (Auto) 1.9 L (2-4) % Baso % (Auto) 1.6 (0-2) % Neut # (Auto) 5000 (3526-8988) /uL Lymph # (Auto) 1100 (8197-1936) /uL [place] # (Auto) 400 (0-900) /uL Eos # (Auto) 100 (0-450) /uL Baso # (Auto) 100 (0-100) /uL PT 13.6 H (10.1-12.7) SECONDS INR 1.2 (0.9-1.3) APTT 41 H (26.4-36.2) SECONDS Sodium 126 L (137-145) mmol/L Potassium 4.5 (3.4-5.1) mmol/L Chloride 93 L (98-107) mmol/L Carbon Dioxide 24 (22-32) mmol/L BUN 17 (9-20) mg/dL Creatinine 1.00 (0.66-1.25) mg/dL Estimated GFR > 60.0 (>60) mL/min BUN/Creatinine Ratio 17.0 (6-22) Glucose 145 H (80-110) mg/dL Calcium 8.7 (8.4-10.2) mg/dL Imaging Data CT scan - head: Attestation: I personally reviewed and interpreted this imaging study as follows: My impression: No bleed or fracture Radiologist's impression: Right periorbital soft tissue swelling without acute bony abnormality or intracranial trauma CT Cspine: Radiologist's impression: No acute process Discharge Plan Departure Patient Disposition: Admitted As Inpatient Clinical Impression: Acute hyponatremia, Weakness Facial laceration Qualifiers: Encounter type: initial encounter Qualified Code(s): S01.81XA - Laceration without foreign body of other part of head, initial encounter Admit Date/Time: 09/02/19 03:00 Admit Provider: Delfino Epstein
[2019-09-02] MEDS: SODIUM CHLORIDE 0.9% 500 ML 1000 ML IV (02:20)
[2019-09-02] MEDS: LIDOCAINE 1% W/EPI 1 ML SUBCUT (02:30)
[2019-09-02 04:42] LABS: Bacteria Urine None Seen; WBC Urine None Seen (0-5/HPF)
[2019-09-02 04:44] LABS: Appearance Urine UA CLEAR; Bilirubin Urine UA NEGATIVE (NEGATIVE); Color Urine UA YELLOW; Glucose Urine UA NEGATIVE (Negative); Ketones Urine UA TRACE (NEGATIVE); Leukocyte Esterase Urine UA NEGATIVE (NEGATIVE); Nitrite Urine UA NEGATIVE (Negative); Occult Blood Urine UA TRACE-LYSED (Negative); Protein Urine UA NEGATIVE (Negative); Urobilinogen Urine UA 0.2 E.U./dL (0.2)
[2019-09-02] MEDS: SODIUM CHLORIDE 0.9% 1,000 ML 125 ML IV (04:47)
[2019-09-02 05:02] LABS: Culture Indicated Urine Cult Not Indicated; RBC Urine 0-1/HPF (0-5/HPF)
--- NOTE | 2019-09-02 06:42 | PC.NURSE ---
Dr. Hicks called at 0640. Patient is wincing and grimacing. I asked the patient if he has pain over the right eye where his laceration is located and he nodded his head yes.
[2019-09-02] MEDS: ACETAMINOPHEN 325 MG TABLET 650 MG PO ×2 (06:59→12:51)
--- NOTE | 2019-09-02 07:44 | P.HP_ITS ---
History of Present Illness History of Present Illness Date Patient Seen: 09/02/19 Time Patient Seen: 07:01 Chief complaint: GLF Narrative: 63-year-old male with significant cerebrovascular accident with aphasia and hemiparesis number of years ago. Also carries a diagnosis of antiphospholipid antibody syndrome coronary artery disease status post myocardial infarction congestive heart failure atrial fibrillation. He has also got rheumatoid arthritis and on immune suppressants and insulin-dependent diabetes. Patient lives at home with his and family members who are caregiver. Patient is mobile in the home with a cane. In does not speak but answers in one-word questions. He was in his usual state of health. Other than he has been participating in physical therapy. Recently he has had outpatient checkups with Cardiology as well as Rheumatology. As best I can gather from notes patient and family members. Patient got up in the evening. And had a fall. When he was found by family members he was surrounded and blood had a laceration to his head bruising and ambulance was called and he was brought into the emergency department for evaluation. During this time frame patient had a number of episodes of vomiting. Loss of bowel control. Patient has not had was significant changes recently in his health. He is not known to have a seizure disorder. There has been recent changes to his antidepressant medications. On evaluation the emergency room he had blood work done which showed he had hyponatremia. He had a CT scan of his neck as well as head. His head showed soft tissue injury no skull fracture no intercranial bleeding although patient is on blood Center CT scan of the neck was reportedly normal. On my evaluation. Patient is comprehending some words. He appears to be in pain although he does not verbalize where. 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 (Chronic 09/01/15) Aphasia following cerebrovascular disease (Chronic 01/27/15) CAD (coronary artery disease) (Chronic) Cardiac arrhythmia (Chronic) Cerebrovascular accident (CVA) involving left middle cerebral artery territory (Chronic 09/01/15) Chronic atrial flutter (Chronic 09/01/15) Chronic systolic congestive heart failure (Chronic 09/01/15) Coronary artery disease involving [place] coronary artery of [place] heart without angina pectoris (Chronic 09/01/15) Diabetes mellitus (Chronic) DVT (deep venous thrombosis) (Resolved) Essential hypertension (Chronic 09/01/15) Hemiparesis affecting dominant side as late effect of cerebrovascular accident (Chronic 01/27/15) History of stroke with residual deficit (Chronic) Hyperlipidemia (Chronic 09/01/15) Hyperlipidemia (Chronic) Myocardial infarction (Resolved) Pacemaker (Chronic) Rheumatoid arthritis (Chronic) Stenosis of left carotid artery (Chronic 12/22/13) Systolic heart failure (Resolved) Type 2 diabetes mellitus (Chronic) Surgical History (Updated 06/22/19 @ 19:08 by Vidya Yao RN) AICD (automatic cardioverter/defibrillator) present (Acute) History of angioplasty (Resolved) Presence of cardiac pacemaker (Resolved) Family & Social History Social History: household members spouse Prior Living Arrangements House Safety & Behavioral: Feels Safe in Current Yes Environment Suicidal Ideation Description None Suicide Plan Description No Plan Tobacco & Substance use: Smoking Status Never smoker alcohol intake never alcohol intake frequency 0-2 drinks per day Substance Use Type does not use Meds Home Medications and Allergies Home Medications Medication Instructions Recorded Confirmed Type insulin aspart U-100 100 unit/mL See Rx Instructions SUBCUT ACHS 10/14/18 07/07/19 Rx subcutaneous solution #10 ml pen needle, diabetic 32 gauge x #100 each 10/24/18 07/07/19 Rx 01/17 dabigatran etexilate 150 mg capsule 150 mg PO BID #60 cap 10/29/18 09/02/19 Rx carvedilol 6.25 mg tablet 6.25 mg PO BID #180 tab 11/03/18 09/02/19 Rx spironolactone 25 mg tablet 12.5 mg PO QPM tab 12/03/18 09/02/19 History metformin [Glucophage] 1,000 mg PO BIDCC #60 tab 01/05/19 09/02/19 Rx etanercept 50 mg/mL (1 mL) 50 mg SUBCUT QWEEK #3.92 ml 04/13/19 07/07/19 Rx subcutaneous pen injector Disabled Parking Permit #1 each 05/25/19 07/07/19 Rx Basaglar KwikPen U-100 Insulin 18 unit SUBCUT DAILY PRN 06/22/19 07/07/19 History atorvastatin [Lipitor] 20 mg PO BEDTIME 06/22/19 09/02/19 History citalopram 30 mg PO DAILY 06/22/19 07/07/19 History folic acid 1 mg PO DAILY 06/22/19 09/02/19 History lisinopril 10 mg PO DAILY 06/22/19 09/02/19 History vitamin X-khrjhbxoagnx-rigmrfj 1 tab PO DAILY 06/22/19 07/07/19 History tamsulosin 0.4 mg capsule 0.4 mg PO QPM #90 cap 07/20/19 09/02/19 Rx sertraline 50 mg tablet See Rx Instructions PO DAILY #60 07/22/19 09/02/19 Rx tab methotrexate sodium 2.5 mg tablet 7.5 mg PO QWEEK #12 tab 08/21/19 09/02/19 Rx Allergies Allergy/AdvReac Type Severity Reaction Status Date / Time polyethylene glycol 3350 Allergy Intermediate HIVES Verified 07/07/19 14:17 [From Miralax] amoxicillin Allergy Mild RASH Verified 07/07/19 14:17 erythromycin base Allergy Mild RASH Verified 07/07/19 14:17 famotidine Allergy Mild RASH Verified 07/07/19 14:17 niacin Allergy Mild RASH Verified 07/07/19 14:17 codeine AdvReac Mild NAUSEA Verified 07/07/19 14:17 Exam Vital Signs (past 8 hours): - 09/02/19 02:00 09/02/19 02:30 09/02/19 03:00 Temperature 98.4 F Pulse Rate 89 92 H 91 H Respiratory Rate 20 18 17 Blood Pressure Blood Pressure [Right Arm] 111/56 L 99/53 L 113/48 L Pulse Oximetry 100 100 100 09/02/19 03:30 09/02/19 03:55 Temperature 98.3 F Pulse Rate 90 99 H Respiratory Rate 16 22 Blood Pressure 155/72 H Blood Pressure [Right Arm] 104/81 Pulse Oximetry 100 100 Oxygen Delivery Method Room Air Narrative Exam Narrative: Gen.: Alert responsive. Non communicative HEENT: Bruising with a bandage over his right frontal supraorbital area with a laceration has been repaired. Bruising around his eye. Oral mucosa is moist. Neck is supple. Cardio: S1-S2 irregular rate and rhythm heart murmur present Respiratory: Normal respiratory effort with lungs clear to auscultation Abdomen: Soft nontender. No liver spleen enlargement no abdominal bruising. No pelvic bone pain tenderness. Extremities: Right-sided hemiparesis. With no obvious bony abnormalities on appreciation on exam. No palpable bony tenderness. Neurologic: Patient is aphasic. With hemiparesis on the right side. Objective Labs Result Diagrams: 09/02/19 01:35 09/02/19 01:35 Labs: Laboratory Results - last 24 hr 09/02/19 09/02/19 09/02/19 01:35 01:35 01:35 WBC 6.7 RBC 3.72 L Hgb 11.5 L Hct 33.0 L MCV 88.6 MCH 31.0 MCHC 35.0 RDW 14.7 Plt Count 162 Neut % (Auto) 74.0 Lymph % (Auto) 16.8 L [place] % (Auto) 5.7 Eos % (Auto) 1.9 L Baso % (Auto) 1.6 Neut # (Auto) 5000 Lymph # (Auto) 1100 [place] # (Auto) 400 Eos # (Auto) 100 Baso # (Auto) 100 PT 13.6 H INR 1.2 APTT 41 H Sodium 126 L Potassium 4.5 Chloride 93 L Carbon Dioxide 24 BUN 17 Creatinine 1.00 Estimated GFR > 60.0 BUN/Creatinine Ratio 17.0 Glucose 145 H Calcium 8.7 Urine Color Urine Appearance Urine pH Ur Specific [place] Urine Protein Urine Glucose (UA) Urine Ketones Urine Occult Blood Urine Nitrate Urine Bilirubin Urine Urobilinogen Ur Leukocyte Esterase Urine RBC Urine WBC Urine Bacteria Ur Culture Indicated? 09/02/19 03:35 WBC RBC Hgb Hct MCV MCH MCHC RDW Plt Count Neut % (Auto) Lymph % (Auto) [place] % (Auto) Eos % (Auto) Baso % (Auto) Neut # (Auto) Lymph # (Auto) [place] # (Auto) Eos # (Auto) Baso # (Auto) PT INR APTT Sodium Potassium Chloride Carbon Dioxide BUN Creatinine Estimated GFR BUN/Creatinine Ratio Glucose Calcium Urine Color Yellow Urine Appearance Clear Urine pH 6.0 Ur Specific [place] 1.010 Urine Protein Negative Urine Glucose (UA) Negative Urine Ketones Trace H Urine Occult Blood Trace-lysed Urine Nitrate Negative Urine Bilirubin Negative Urine Urobilinogen 0.2 Ur Leukocyte Esterase Negative Urine RBC 0-1/hpf Urine WBC None seen Urine Bacteria None seen Ur Culture Indicated? Cult not indicated Assessment & Plan Assessment & Plan narrative: Ground level fall with head injury patient on anticoagulation due to antiphospholipid antibody syndrome atrial fibrillation. No obvious intercranial bleeding on CT scan. Some subcutaneous hematoma bruising and laceration which has been repaired. Patient had presumed weakness. The patient does not have a history of seizure disorder. He is unable to pr ovide a reliable history. He is found to be hyponatremic which is a new finding for him. This may have contributed to his fall and weakness. Will have patient work with physical therapy here in the hospital. Will help resolve his electrolyte abnormalities. And monitor his risk of bleeding due to his anticoagulation. Hyponatremia. Possible causes include the dehydration. Medication side eff ects. Sodium is 126. Will increase his normal saline volume. Monitor closely his sodium level. Make adjustments to medication help prevent further sodium loss. Cerebrovascular disease. Chronic with late effects of a stroke with hemiparesis. We will continue with his current treatment for this with his statin blood pressure control and anticoagulation. Coronary artery disease chronic and stable. Status post angiogram with stenting. Continue with beta-roz lipid and anticoagulation. Atrial fibrillation heart rate was controlled although tachycardic. Blood pressure stable. Will continue monitoring his heart rate place him back on his beta-roz and anticoagulation. Diabetes insulin dependent. Place him back on his Lantus insulin with insulin sliding-scale coverage with a.c. HS insulin and place him on a diabetic diet will provide a nutrition consultation. Depression. The patient recently switched from citalopram to sertraline. We will stop his citalopram and continue with his sertraline. Disposition and plan. Patient will be in the hospital greater than 2 midnights for correction of his sodium monitoring for further complications of his recent ground level fall. Working with physical therapy occupational therapy and nutrition evaluation. Quality VTE Deep Vein Thrombosis/Pulmonary Embolism Present on Admission: No
[2019-09-02] MEDS: CARVEDILOL 6.25 MG TABLET PO ×2 (09:23→22:08)
[2019-09-02] MEDS: DABIGATRAN 75 MG CAPSULE 150 MG PO ×2 (09:24→22:06)
[2019-09-02] MEDS: SERTRALINE 50 MG TABLET 100 MG PO (09:25)
[2019-09-02] MEDS: DOCUSATE 100 MG CAPSULE PO ×2 (09:26→22:06)
--- NOTE | 2019-09-02 11:15 | PC.NURSE ---
Addendum entered by Elisa Locktet R.N. 09/02/19 14:11: PAIN/GI - pt did eat lunch with assist from [employer], nodded yes when asked if having discomfort and given 650mg po tylenol. Original Note: AM NOTE - pt is alert, non verbal when Dr. Epstein in this am, does grimmace with movement, MD exam did not indicate any specific area discomfort when palpated or extremity moved, no abd pain, given tylenol for discomfort, when spouse arrived, she stated that pt can become nauseated and has vomited in the past with narcotics, does not move his r extremities on command, does assist with turning, incont urine and can use urinal with assist, declines breakfast, indicated to spouse he is not hungry, able take medications with sips water, normal saline incr to 175ml/hr.
[2019-09-02] MEDS: SODIUM CHLORIDE 0.9% 1,000 ML 175 ML IV ×2 (11:32→17:32)
--- NOTE | 2019-09-02 14:33 | DIET.PN ---
Dietary Progress Note 63y M admitted for GLF during night referred to nutrition r/t insulin dependent DM. Are low BG contributing to falls? Pt is non-verbal r/t past stroke, RD checked in several times to converse c pt's but she is not present. Will try again tomorrow if unable to connect today.
--- NOTE | 2019-09-02 14:58 | PT.IIE ---
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 (Chronic 09/01/15) Aphasia following cerebrovascular disease (Chronic 01/27/15) CAD (coronary artery disease) (Chronic) Cardiac arrhythmia (Chronic) Cerebrovascular accident (CVA) involving left middle cerebral artery territory (Chronic 09/01/15) Chronic atrial flutter (Chronic 09/01/15) Chronic systolic congestive heart failure (Chronic 09/01/15) Coronary artery disease involving [place] coronary artery of [place] heart without angina pectoris (Chronic 09/01/15) Diabetes mellitus (Chronic) DVT (deep venous thrombosis) (Resolved) Essential hypertension (Chronic 09/01/15) Hemiparesis affecting dominant side as late effect of cerebrovascular accident (Chronic 01/27/15) History of stroke with residual deficit (Chronic) Hyperlipidemia (Chronic 09/01/15) Hyperlipidemia (Chronic) Myocardial infarction (Resolved) Pacemaker (Chronic) Rheumatoid arthritis (Chronic) Stenosis of left carotid artery (Chronic 12/22/13) Systolic heart failure (Resolved) Type 2 diabetes mellitus (Chronic) Physical Therapy Inpatient Evaluation/Re-Eval M1 PT/OT-IP Prior Functional Status Start: 09/02/19 16:16 Freq: NEEDED Status: Active Protocol: Document 09/02/19 14:58 AB (Rec: 09/02/19 16:40 AB [id number]) Medical Review Prior Functional Status Medical History Reviewed Yes Communication pt has aphasia and unable to verbalize needs; able to follow one step commands Mobility and Gait spouse stated that pt is modified independent with bed mobility, transfers and ambulation using quad cane and R AFO Activities of Daily Living and IADL's per spouse: needs assist with dressing but able to do toileting and bathing independently Prior Functional Level (Other details) spouse stated that pt has been going to for outpt PT Social History Household Members spouse Living Arrangements House Number of Floors (Floors) One Floor Number of Stairs To Enter/Railing? 3 steps to enter with bilateral wide rails and holds on to one rail at a time Home Environment Standard Height Toilet,Walk in Shower Home Equipment Quad Cane,Shower Seat without Backrest,Hand Held Shower,Grab Bars Near Toilet Additional Social History Comment spouse stated that there will be somebody at home with pt for 27/05 between her and her daughter in law (a MAMMA LOGIST ) M2 PT-IP Current Condition Start: 09/02/19 16:16 Freq: NEEDED Status: Active Protocol: Document 09/02/19 14:58 AB (Rec: 09/02/19 16:40 AB [id number]) Physical Therapy Current Condition Current Condition Evaluation Date 09/02/19 Treatment Diagnosis GLF; generalized weakness Onset Date 09/02/19 Precautions Other Precautions Falls M3 PT-IP Subjective Start: 09/02/19 16:16 Freq: NEEDED Status: Active Protocol: Document 09/02/19 14:58 AB (Rec: 09/02/19 16:40 AB [id number]) Subjective Physical Therapy Visit Type Type Initial Evaluation Visit Start Time 14:58 Visit Stop Time 15:25 Total Visit Minutes 27 Number of CUSTOMS DIRECTOR Visits 0 M4 PT-IP Mobility and Gait Start: 09/02/19 16:16 Freq: NEEDED Status: Active Protocol: Document 09/02/19 14:58 AB (Rec: 09/02/19 16:40 AB [id number]) PT-Bed Mobility Assessment Supine to Sit Supine to Sit Moderate Assistance,Maximum Assistance,1 Person Assistance PT-Transfer Assessment Sit to and From Stand Sit to and from Stand Moderate Assistance,1 Person Assistance Equipment Transfer Assistive Device Gait Belt,Small Based Quad Cane Orthotic/Prosthetic Devices or Brace: No Transfers Transfer Destination Chair Transfer Technique Stand Step Pivot Transfer Ability Level of Assist Moderate Assistance,Maximum Assistance,1 Person Assistance ,Use of Upper Extremities Comments Mobility Comments spouse stated that she will bring pt's AFO tomorrow ~ 11 am. Gait Assessment Gait Gait Assistance Required: Moderate Assistance,Maximum Assistance,1 Person Assist Distance (Feet) 2 Able to Maintain Weight Bearing Status Yes During Gait Assistive Devices Assistive Device Gait Belt,Small Based Quad Cane Orthotic/Prosthetic Devices or Brace: No Gait Deviations General Gait Pattern Antalgic,Decreased Stride Length,Decreased Feet Clearance,Step-to Gait Factors Limiting Gait Function Factors Limiting Gait Function Decreased Activity Tolerance, Decreased Strength,Poor Balance,Poor Safety Awareness Comments Gait Comments attempted ambulation but pt was only able to ambulate ~ 2ft and has to sit back down. pt with difficulty elevating RLE. pt does not have his AFO and spouse will bring it tomorrow. PT-Balance Assessment Sitting Balance and Reactions Static Sitting Balance Ability Good Dynamic Sitting Balance Ability Fair Standing Balance and Reactions Static Standing Balance Ability Poor Dynamic Standing Balance Ability Poor Device Used quad cane M5 PT-IP Objective Assessments Start: 09/02/19 16:16 Freq: NEEDED Status: Active Protocol: Document 09/02/19 14:58 AB (Rec: 09/02/19 16:40 AB [id number]) Orientation Orientation/Cognition Level of Alertness Alert Language Function Ability Expressive Aphasia Safety Awareness Decreased Safety Awareness Gross Range of Motion Lower Extremity ROM Assessment Right Impaired Impairments limited R DF ( to neutral only ) Strength Lower Extremity Strength Assessment Right Impaired Hip 3/5 Knee 3/5 Ankle 0/5 Sensation Assessment Comments Sensation Comments unable to asses Muscle Tone Muscle Tone WNL No Muscle Tone Location Right Upper Extremity Type of Tone Hypotonicity Severity of Tone Moderate M6 PT-IP Treatment Start: 09/02/19 16:16 Freq: NEEDED Status: Active Protocol: Document 09/02/19 14:58 AB (Rec: 09/02/19 16:40 AB [id number]) Physical Therapy Treatment Education Education Provided Safety M7 PT-IP Assessment and Plan Start: 09/02/19 16:16 Freq: NEEDED Status: Active Protocol: Document 09/02/19 14:58 AB (Rec: 09/02/19 16:40 AB [id number]) PT Summary Assessment and Plan Potential Rehabilitation Potential Good Status of Condition at Evaluation Stable Summary Impairments Pain,ROM,Strength,Balance, Coordination,Sensation,Tone, Cognition,Bed Mobility, Transfers,Gait,Activity Tolerance Assessment Summary pt requiring mod to max A with mobility at this time. d/c plan depending on progress but at this time may require SNF rehab. will conduct caregiver training when appropriate. Spouse will be coming in at around 1100 am tomorrow to bring AFO and if appropriate caregiver training. will continue to assess progress. Goals Bed Mobility Goal Standby Assistance Transfer Goal Standby Assistance,Cane Gait Goal Standby Assistance,Cane Gait Distance 100 Other Goals up/down 3 stesp with 1 rail CGA Days to Meet Goals 5 Frequency of Treatment Frequency Of Treatment Once a Day Treatment Plan Physical Therapy Treatment Plan Bed Mobility Training,Transfer Training,Gait Training, Therapeutic Exercise,Balance Retraining,Discharge Planning, Neuromuscular Re-ed, Coordination Retraining,Manual Therapy Other Recommendations and Next Treatment ambulation, caregiver training Focus when appropriate Recommendations To Nursing Amount of Assist Needed 1 Person Assist Discharge Recommendations PT Discharge Recommendations Home with 27/05 Assist,Home Health,SNF Rehab Other Discharge Recommendations SNF vs home with 27/05/HHPT
--- NOTE | 2019-09-02 16:46 | CM.DANOTE ---
DCP assessment: EMR reviewed: patient is a 63 yr old male who was admitted for GLF. Patients has a hx of CVA with aphasia a number of years ago. PCP is Dr. Epstein. CM/RN met with patient and patients (Felicity) patients DPOA at the bedside. CM/RN explained CM role at time of meeting. Patient currently lives at home with his . Patients works but patient currently has COLETTE and is in the process of getting a new [employer]TT[employer] CM. Patients daughter works as his [employer] caregiver and they are working on getting the patient re-evaluated to get approval for more hours. Patient was alert and oriented at time of CM visit. Patient still remains non-verbal but was able to nod yes or no to answer questions. Patients was also there to help with patients health history and D/C planning. Patient walks with a cane at base line. Patient currently gets OP PT, [facility] [employer] and is on the waiting list for OT at [facility]. DME: patient has a cane , shower stool and gait belt at home. Insurance: 1st [employer], 2nd: Medicare, 3rd: medicaid CM team will be following for any d/c planning needs that may arise. CM updated whiteboard and gave Patients senior resources informational booklet. Plan: hopefully Patient will D/C home with family and maintain current OP PT, OT and [facility] with [facility] when medically stable. Therapy Evaluations pending. Joann Jordan RN. Discharge Planning/Care Management CM Discharge Assessment Start: 09/02/19 16:15 Freq: Status: Active Protocol: Document 09/02/19 16:15 HS (Rec: 09/02/19 16:45 HS [id number]) Discharge Planning Assessment Assigned Digital Computer Systems Analyst Joann Jordan RN DPOA/Assigned Designee Name Felicity Colvin () Contact Information [phone] Advance Directives? Yes Advance Directives on File Yes History Provided By Significant Other,Medical Record Has Patient been admitted in last 30 No days? Prior Living Arrangements House Household Members spouse,caregiver Comment Patients daughter is his COLETTE caregiver Type of transporation used prior to Relies on Others admit Independent with ADL's No Is patient alert and oriented? Yes: Unable to speak due to privious stroke Needs Assistance With Bathing,Grooming,Meal Prep, Managing Medications,Home Chores / Shopping Caregiver for Another No DME Already Rented / Owned Bath Bench,Cane Patient/Family Preference OP PT Therapy,OP OT Therapy,OP CHAIN [facility] [employer] CONTR[employer] Therapy Comment Patient currently has OP PT OT and [facility] CONTROL at [facility] Discharge Plan Home Referrals Initiated None needed Whiteboard Updated in Patient Room with Yes name and ext. # of Digital Computer Systems Analyst Review Status In Process Next Review Type Continued Stay Review
--- NOTE | 2019-09-02 17:24 | OT.IP.EVAL ---
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 (Chronic 09/01/15) Aphasia following cerebrovascular disease (Chronic 01/27/15) CAD (coronary artery disease) (Chronic) Cardiac arrhythmia (Chronic) Cerebrovascular accident (CVA) involving left middle cerebral artery territory (Chronic 09/01/15) Chronic atrial flutter (Chronic 09/01/15) Chronic systolic congestive heart failure (Chronic 09/01/15) Coronary artery disease involving [place] coronary artery of [place] heart without angina pectoris (Chronic 09/01/15) Diabetes mellitus (Chronic) DVT (deep venous thrombosis) (Resolved) Essential hypertension (Chronic 09/01/15) Hemiparesis affecting dominant side as late effect of cerebrovascular accident (Chronic 01/27/15) History of stroke with residual deficit (Chronic) Hyperlipidemia (Chronic 09/01/15) Hyperlipidemia (Chronic) Myocardial infarction (Resolved) Pacemaker (Chronic) Rheumatoid arthritis (Chronic) Stenosis of left carotid artery (Chronic 12/22/13) Systolic heart failure (Resolved) Type 2 diabetes mellitus (Chronic) Surgical History (Last Updated 06/22/19 @ 19:08 by Vidya Yao RN) AICD (automatic cardioverter/defibrillator) present (Acute) History of angioplasty (Resolved) Presence of cardiac pacemaker (Resolved) Occupational Therapy Inpatient Evaluation/Re-Eval M2 OT-IP Current Condition Start: 09/02/19 16:52 Freq: Status: Active Protocol: Document 09/02/19 14:58 [facility] (Rec: 09/02/19 17:24 [facility] [id number]) Occupational Therapy Current Condition Current Condition Evaluation Date 09/02/19 Treatment Diagnosis GLF, hypoatremia, chronic late effects CVA Weight Bearing Status Weight Bearing Status Weight Bear as Tolerated M3 OT- IP Subjective and Pain Start: 09/02/19 16:52 Freq: Status: Active Protocol: Document 09/02/19 14:58 [facility] (Rec: 09/02/19 17:24 [facility] [id number]) OT- Subjective Occupational Therapy Visit Type Type Initial Evaluation Visit Start Time 14:58 Visit Stop Time 15:25 Total Visit Minutes 27 Occupational Therapy Visit Comments Patient Comments Pt nodding in agreement when asking him if it is okay to get up for OT/PT eval. Pt's came in at the end of the session and able to answer questions. Patient/Caregiver Goals Pt wanting to go home. OT Pain Assessment Pain When Pain Assessed At Rest Pain Present Pain Present Pain Reported Location Head Description Pressure Pain Behaviors Holding Area M4 OT- IP ADL's Start: 09/02/19 16:52 Freq: Status: Active Protocol: Document 09/02/19 14:58 [facility] (Rec: 09/02/19 17:24 [facility] [id number]) OT ADL-Dressing General Eval Lower Body Dressing Ability Maximum Assistance Areas Needing Assistance Socks Comments OT Dressing Comments Pt needing MAX A for socks. MODA for balance while pt able to pull up brief over his hips and needing MODA for completeness. Initially while trying to get his legs up to the brief falling over backwards. OT ADL-Toileting Comments OT Toileting Comments Pt wearing a brief at this time and did not need to use the toilet. M5 OT- IP IADL's Start: 09/02/19 16:52 Freq: Status: Active Protocol: Document 09/02/19 14:58 [facility] (Rec: 09/02/19 17:24 [facility] [id number]) OT-Instrumental Activities of Daily Living Medication Management Medication Management Caregiver Administers Money Management Money Management Caregiver Provides Assistance Meal Preparation Meal Preparation Caregiver Provides Assist Metallurgical Inspector Metallurgical Inspector Caregiver Provides Assist Driving Driving Caregiver Provides Assist M6 OT- IP Functional Cognition Start: 09/02/19 16:52 Freq: Status: Active Protocol: Document 09/02/19 14:58 [facility] (Rec: 09/02/19 17:24 [facility] [id number]) Cognitive Factors Limiting Selfcare Function Cognitive Ability Level of Alertness Alert Patient Orientation Name Attention Span Ability Capable of Focused Attention Ability to Follow Commands Able to Follow One Step Commands with Increased Time, Able to Follow One Step Commands with Repetition Cognitive Comments Cognitive Assessment Comments Pt non-verbal and uses hand gestures and facial expression to communicate. OT- Vision and Hearing OT- Hearing Assessment OT- Hearing Assessment WFL M7 OT- IP Mobility and Balance Start: 09/02/19 16:52 Freq: Status: Active Protocol: Document 09/02/19 14:58 [facility] (Rec: 09/02/19 17:24 [facility] [id number]) OT- Bed Mobility Assessment Rolling Type of Rolling Log Rolling Supine to Sit Supine to Sit Assist Moderate Assistance,Maximum Assistance,1 Person Assistance OT-Transfer Assessment Sit to and From Stand Sit to and from Stand Moderate Assistance,1 Person Assistance Transfers Transfer Ability Moderate Assistance,1 Person Assistance Technique Transfer Destination Bed,Chair Devices Transfer Assistive Devices Gait Belt,Small Based Quad Cane Comments Mobility Comments Pt able to move BLE to the edge of the bed and needing MOD/MAXA to get trunk upright. MODA X 1 to stand to quad cane. Pt unsteady on his feet and will benefit from having his AFO. Pt's to bring it in tomorrow. OT- Balance Assessment Sitting Balance and Reactions Static Sitting Balance Ability Fair Standing Balance and Reactions Static Standing Balance Ability Poor M8 OT- IP Objective Assessments Start: 09/02/19 16:52 Freq: Status: Active Protocol: Document 09/02/19 14:58 [facility] (Rec: 09/02/19 17:24 [facility] [id number]) OT Gross Range of Motion Upper Extremity Range of Motion Assessment Right Impaired OT Strength Comments Strength Comments LUE WFL OT-Muscle Tone Assessment Muscle Tone WNL Yes Muscle Tone Location Right Upper Extremity Type of Tone Hypertonicity Comments Muscle Tone Comments RUE internally rotated with elbow, wrist and fingers flexed. M9 OT- IP Assessment and Plan Start: 09/02/19 16:52 Freq: Status: Active Protocol: Document 09/02/19 14:58 [facility] (Rec: 09/02/19 17:24 [facility] [id number]) OT Summary Assessment and Plan Potential Rehabilitation Potential Good Analytic Complexity at Evaluation Low Summary OT Impairments Pain,Range of Motion,Balance, Functional Cognition, Functional Mobility,Grooming, Dressing,Toileting,Bathing, Toilet Transfers,Shower Transfers Progress Towards Goals Slow Progress due to Medical Issues,Slow Progress due to Activity Tolerance Assessment Summary Pt low complexity and due to GLF and hypoatremia now needing extensive assist for ADL's, functional mobility, decreased balance and activity tolerance and would benefit from skilled rehab prior to going home. Pt's to be in tomorrow for caregiver training to see if able to provide enough assist at home, otherwise skilled rehab recommended. Goals Dressing Goal Standby Assistance Toileting Goal Standby Assistance Bathing Goal Minimal Assistance Toilet Transfer Goal Standby Assistance Shower Transfer Goal Contact Guard Assistance Patient/Caregiver Education Goal Caregiver Independent Assisting Patient Days to Meet Goals 7 Frequency of Treatment Frequency Of Treatment Once a Day Treatment Plan OT Treatment Plan ADL Training,Functional Mobility,Patient/Family Education,Discharge Planning Other Treatment Recommendations and Next LB dressing. Treatment Focus Discharge Recommendations OT Discharge Recommendations SNF Rehab Other Discharge Recommendations Pending progress and caregiver training, pt to go home with 24/7 assist.
[2019-09-02] MEDS: TAMSULOSIN 0.4 MG CAPSULE PO (17:32)
--- NOTE | 2019-09-02 19:24 | PC.NURSE ---
Addendum entered by Bisi Martinez R.N. 09/02/19 22:45: Resting at intervals throughout evening. Denies any discomfort. HS CBG = 154, pt declined insulin at this time. Call light w/in reach, bed alarm on for pt safety. Continue w/plan of care. Original Note: Pt resting at intervals. Denies discomfort. SpO2 100% RA AC CBG = 119, no coverage required. IV NS infusing @ 175cc/hr via pump into the left wrist. Call light w/in reach, bed alarm on for pt safety.
[2019-09-02 20:52] LABS: Sodium 127 mmol/L (137-145)
[2019-09-02] MEDS: SENNOSIDES 8.6 MG TABLET 17.2 MG PO (22:06)
[2019-09-02] MEDS: ATORVASTATIN 20 MG TABLET PO (22:08)
[2019-09-02] MEDS: LISINOPRIL 10 MG TABLET PO (22:09)
[2019-09-03] VITALS (10 sets, daily range): BP systolic 106–136; BP diastolic 43–72; PULSE 60–76; RESP 16–18; TEMP 36.4–36.9; O2SAT 96–100
--- NOTE | 2019-09-03 00:22 | PC.NURSE ---
Addendum entered by Werner Dickson R.N. 09/03/19 02:19: 0210: Pt awake, moaning, facial grimace, indicated that he is having pain in rt leg. Medicated with 2 Hydrocodone. Original Note: [place] [facility] Note: 0000: Awake, attempted to use urinal without assistance: linen changed, huy care given and clean brief on. Pt nods his head that he will ask for assistance to use urinal. Vital signs stable. IV in place in lt forearm, with NS infusing at 175cc/hr. Pt is non-verbal but communicates well by looking at what he wants, nodding or shaking his head.
[2019-09-03] MEDS: HYDROCODONE/ACET 5/325 TABLET 2 TAB PO (02:06)
[2019-09-03] MEDS: SODIUM CHLORIDE 0.9% 1,000 ML 175 ML IV (04:52)
[2019-09-03 05:22] LABS: BUN Creatinine Ratio 12.5 (6-22); Blood Urea Nitrogen 10 mg/dL (9-20); Calcium 7.6 mg/dL (8.4-10.2); Carbon Dioxide 25 mmol/L (22-32); Chloride 102 mmol/L (98-107); Estimated Glomerular Filt Rate > 60.0 mL/min (>60); Glucose 107 mg/dL (80-110); HEMOLYSIS < 15 (0-50); Potassium 4.2 mmol/L (3.4-5.1); Sodium 130 mmol/L (137-145)
--- NOTE | 2019-09-03 08:06 | P.PN_ITS ---
Subjective Subjective Date Patient Seen: 09/03/19 Time Patient Seen: 08:06 Interval history: Patient looks better today. Seeming to be feeling better. Still difficult time communicating with him. Apparently has some leg pain on the right. Due to his pain there. Will do an x-ray just to make sure there is nothing broken as he did have a fall. And difficulty with communication and is the side of the leg that he has poor movement on. Blood sugars have been okay. Sodium levels have improved. He looks to be more euvolemic although he is getting a lot of IV fluids and has had increased urination. Ate a little bit yesterday. Exam Vital Signs (past 8 hours): - 09/03/19 04:18 Temperature 97.8 F Pulse Rate 75 Respiratory Rate 16 Blood Pressure 117/43 L Pulse Oximetry 97 Oxygen Delivery Method Room Air Oxygen Flow Rate 0 Narrative Exam Narrative: Gen.: Alert difficult to communicate HEENT: Bruising to right forehead and around eye. Oral mucosa is moist neck is supple Cardio: Regular rate and rhythm Respiratory: Normal respiratory effort lungs are clear Abdomen: Soft nontender Extremities: Hemiparesis on right side Objective Labs Result Diagrams: 09/02/19 01:35 09/03/19 05:00 Labs: Laboratory Results - last 24 hr 09/02/19 09/03/19 20:39 05:00 Sodium 127 L 130 L Potassium 4.2 Chloride 102 Carbon Dioxide 25 BUN 10 Creatinine 0.80 Estimated GFR > 60.0 BUN/Creatinine Ratio 12.5 Glucose 107 Calcium 7.6 L Assessment & Plan Assessment & Plan narrative: Ground level fall with head injury patient on anticoagulation due to antiphospholipid antibody syndrome atrial fibrillation. No obvious intercranial bleeding on CT scan. Patient appears to be better today. Having some right leg and hip pain. I would like to order an x-ray of the pelvis and femur on the right side to rule out occult fracture. Continue working with physical therapy. Getting Tylenol for pain. Does not do really well with pain pills. So will try that as opposed to the hydrocodone Hyponatremia. Moderate. Improved sodium to 130. Will decrease and stop his normal saline today. I think he is euvolemic. Order serum osmolality and urine sodium. Once these tests have been docked drawn will go ahead and do IV furosemide to see if we can't get rid of some free water and hold on the sodium to bring his sodium level back up. Unsure of etiology at this point will do an a.m. cortisol. Also medication effects he was on spironolactone and sometimes antidepressants can cause that. Cerebrovascular disease. Chronic with late effects of a stroke with hem iparesis. We will continue with his current treatment for this with his statin blood pressure control and anticoagulation. Working with physical therapy Coronary artery disease chronic and stable. Status post angiogram with stenting. Continue with beta-roz lipid and anticoagulation. No acute chest pain Atrial fibrillation heart rate was controlled although tachycardic. Blood pressure stable. Will continue monitoring his heart rate place him back on his beta-roz and anticoagulation. Diabetes insulin dependent. Blood sugars have been well controlled. Lantus was held last night. Eating okay. Depression. The patient recently switched from citalopram to sertraline. We will stop his citalopram and continue with his sertraline. Disposition and plan. Physical therapy occupational therapy. X-rays few additional lab tests. Some IV Lasix to get a sodium back up. Quality VTE Deep Vein Thrombosis/Pulmonary Embolism Present on Admission: No
--- NOTE | 2019-09-03 08:11 | DI.RAD.S_ITS ---
PROCEDURE: XR HIP W PEL IF DONE RT 2V INDICATIONS: Fall hip pain TECHNIQUE: AP pelvis with lateral view(s) of the right hip(s). COMPARISON: None. FINDINGS: Grid lines are seen. Bones: No fractures or dislocations. Pelvic ring appears intact. No suspicious bony lesions. There is mild to moderate superior joint space narrowing seen of both hips, with associated remodeling changes with subchondral sclerosis and osteophyte formation. Soft tissues: The visualized bowel gas pattern is normal. No suspicious soft tissue calcifications. IMPRESSION: No displaced fractures are seen on these plain films. If there is focal tenderness, or other clinical concern for a fracture not seen on these images in this patient with a given history of trauma, please consider a dedicated CT or a short-term followup plain film series (in 1-2 weeks) for further evaluation. Dictated by: Geoff Kumar M.D. on 09/03/2019 at 8:17 Approved by: Geoff Kumar M.D. on 09/03/2019 at 8:19
[2019-09-03 08:44] LABS: Cortisol AM (Before 10AM) 3.46 ug/dL (4.46-22.7)
[2019-09-03 09:16] LABS: Sodium Urine Random 157 mmol/L (30-90)
[2019-09-03] MEDS: HYDROCODONE/ACET 5/325 TABLET 1 TAB PO (09:16)
[2019-09-03] MEDS: DABIGATRAN 75 MG CAPSULE 150 MG PO ×2 (09:17→21:35)
[2019-09-03] MEDS: CARVEDILOL 6.25 MG TABLET PO ×2 (09:17→21:35)
[2019-09-03] MEDS: SERTRALINE 50 MG TABLET 100 MG PO (09:17)
[2019-09-03] MEDS: DOCUSATE 100 MG CAPSULE PO ×2 (09:17→21:35)
[2019-09-03] MEDS: FUROSEMIDE 40 MG/4 ML VIAL IV ×2 (09:20→17:01)
--- NOTE | 2019-09-03 09:52 | PC.NURSE ---
Addendum entered by Elisa Lockett R.N. 09/03/19 14:13: PAIN/GI - after lunch, occup therapy in and pt up doing exercises when he had an onset nausea and approx 200 ml emesis, care provided, ret to chair, spouse at bedside and discussed if nausea or pain, he did not had some discomfort, given 650mg po tylenol to avoid narcotic after discussion with spouse and given 4mg iv zofran. Addendum entered by Elisa Lockett R.N. 09/03/19 13:03: PAIN - pt seated chair eating lunch, spouse at bedside, discussed with her and pt pain mgt, at this time per pt and spouse he is comfortable. Original Note: AM NOTE - pt is alert, smiling when spoken to, has very limited speech and only a few words are understandable, able communicate with gestures and pt is able to understand speech and follow directions, r ue, rle weakness w/hx cva, Dr. Epstein in this am and pt indicates that he is uncomfortable and touches his rle, repositioned for breakfast, after meal urine collected and sent lab, iv 40mg lasix admin then iv saline locked, given norco 5/325mg po x 1 tab for discomfort.
--- NOTE | 2019-09-03 13:50 | OT.IP.TRT ---
Current Diagnoses Hypo-osmolality and hyponatremia (09/02/19) Occupational Therapy Treatment Note M2 OT-IP Current Condition Start: 09/02/19 16:52 Freq: Status: Active Protocol: Document 09/02/19 14:58 CCC (Rec: 09/02/19 17:24 [facility] [id number]) Occupational Therapy Current Condition Current Condition Evaluation Date 09/02/19 Treatment Diagnosis GLF, hypoatremia, chronic late effects CVA Weight Bearing Status Weight Bearing Status Weight Bear as Tolerated M3 OT- IP Subjective and Pain Start: 09/02/19 16:52 Freq: Status: Active Protocol: Document 09/03/19 14:26 CGR (Rec: 09/03/19 14:33 CGR [id number]) OT- Subjective Occupational Therapy Visit Type Type Treatment Note Visit Start Time 13:08 Visit Stop Time 13:50 Total Visit Minutes 42 Notes Pt's present. States they have seen a steady decline in ADL participation and would like pt to get back to increased participation. OT Pain Assessment Pain When Pain Assessed At Rest Pain Present Pain Present Denied Pain M4 OT- IP ADL's Start: 09/02/19 16:52 Freq: Status: Active Protocol: Document 09/03/19 14:26 CGR (Rec: 09/03/19 14:33 CGR [id number]) OT WVD-Yjcn-Jhqzevl General Evaluation Self-Feeding Ability Independent Comments OT Self-Feeding Comments Pt feeding lunch upon first attempt to see pt. OT ADL-Grooming General Evaluation Grooming Ability Standby Assistance Areas Needing Assistance Face Washing Comments OT Grooming Comments Pt washed face after vomiting. OT ADL-Dressing General Eval Upper Body Dressing Ability Minimal Assistance Comments OT Dressing Comments Pt needed min a for donning gown getting RUE through the hospital gown hole. M5 OT- IP IADL's Start: 09/02/19 16:52 Freq: Status: Active Protocol: Document 09/02/19 14:58 CCC (Rec: 09/02/19 17:24 [facility] [id number]) OT-Instrumental Activities of Daily Living Medication Management Medication Management Caregiver Administers Money Management Money Management Caregiver Provides Assistance Meal Preparation Meal Preparation Caregiver Provides Assist Furnace Checker Furnace Checker Caregiver Provides Assist Driving Driving Caregiver Provides Assist M6 OT- IP Functional Cognition Start: 09/02/19 16:52 Freq: Status: Active Protocol: Document 09/02/19 14:58 [facility] (Rec: 09/02/19 17:24 [facility] [id number]) Cognitive Factors Limiting Selfcare Function Cognitive Ability Level of Alertness Alert Patient Orientation Name Attention Span Ability Capable of Focused Attention Ability to Follow Commands Able to Follow One Step Commands with Increased Time, Able to Follow One Step Commands with Repetition Cognitive Comments Cognitive Assessment Comments Pt non-verbal and uses hand gestures and facial expression to communicate. OT- Vision and Hearing OT- Hearing Assessment OT- Hearing Assessment WFL M7 OT- IP Mobility and Balance Start: 09/02/19 16:52 Freq: Status: Active Protocol: Document 09/03/19 14:26 CGR (Rec: 09/03/19 14:33 CGR [id number]) OT- Balance Assessment Sitting Balance and Reactions Static Sitting Balance Ability Fair Dynamic Sitting Balance Ability Poor Comments Other Balance Tests/Deviations/Treatment Pt participated in sitting : balance activity finding center and reaching then returning to center. Pt became nauseated and vomited during this activity. M8 OT- IP Objective Assessments Start: 09/02/19 16:52 Freq: Status: Active Protocol: Document 09/02/19 14:58 [facility] (Rec: 09/02/19 17:24 [facility] [id number]) OT Gross Range of Motion Upper Extremity Range of Motion Assessment Right Impaired OT Strength Comments Strength Comments LUE WFL OT-Muscle Tone Assessment Muscle Tone WNL Yes Muscle Tone Location Right Upper Extremity Type of Tone Hypertonicity Comments Muscle Tone Comments RUE internally rotated with elbow, wrist and fingers flexed. M9 OT- IP Assessment and Plan Start: 09/02/19 16:52 Freq: Status: Active Protocol: Document 09/03/19 14:26 CGR (Rec: 09/03/19 14:33 CGR [id number]) OT Summary Assessment and Plan Potential Rehabilitation Potential Good Analytic Complexity at Evaluation Low Summary OT Impairments Pain,Range of Motion,Balance, Functional Cognition, Functional Mobility,Grooming, Dressing,Toileting,Bathing, Toilet Transfers,Shower Transfers Progress Towards Goals Slow Progress due to Medical Issues,Slow Progress due to Activity Tolerance Assessment Summary Pt participated in UE ROM and sitting balance activity. Pt vomited during the sitting balance activity and then needed assist for cleaning up and donning a new gown. All activity performed on this date from chair. Pt's requesting that we work on increased ADL abilities and strength. Pt and provided with UE and sitting balance activities. Goals Dressing Goal Standby Assistance Toileting Goal Standby Assistance Bathing Goal Minimal Assistance Toilet Transfer Goal Standby Assistance Shower Transfer Goal Contact Guard Assistance Patient/Caregiver Education Goal Caregiver Independent Assisting Patient Days to Meet Goals 6 Frequency of Treatment Frequency Of Treatment Once a Day Treatment Plan OT Treatment Plan ADL Training,Functional Mobility,Patient/Family Education,Discharge Planning Other Treatment Recommendations and Next LB dressing. Treatment Focus Discharge Recommendations OT Discharge Recommendations SNF Rehab Other Discharge Recommendations Pending progress and caregiver training, pt to go home with 24/ assist.
[2019-09-03] MEDS: ONDANSETRON 4 MG/2 ML INJ IV (13:51)
[2019-09-03] MEDS: ACETAMINOPHEN 325 MG TABLET 650 MG PO (13:51)
--- NOTE | 2019-09-03 14:02 | PT.IPTN ---
Addendum entered and electronically signed by Jennifer Swanson PT 09/03/19 15:34: This is to certify that I have reviewed this documentation and is involved with this pt's care. Original Note: Current Diagnoses Hypo-osmolality and hyponatremia (09/02/19) Physical Therapy Treatment Note M2 PT-IP Current Condition Start: 09/02/19 16:16 Freq: NEEDED Status: Active Protocol: Document 09/02/19 14:58 AB (Rec: 09/02/19 16:40 AB [id number]) Physical Therapy Current Condition Current Condition Evaluation Date 09/02/19 Treatment Diagnosis GLF; generalized weakness Onset Date 09/02/19 Precautions Other Precautions Falls M3 PT-IP Subjective Start: 09/02/19 16:16 Freq: NEEDED Status: Active Protocol: Document 09/03/19 10:57 MT (Rec: 09/03/19 12:02 MT [id number]) Subjective Physical Therapy Visit Type Type Treatment Note Visit Start Time 10:57 Visit Stop Time 11:23 Total Visit Minutes 26 Number of GASOLINE PUMP INSTALLER Visits 0 Physical Therapy Visit Comments Patient Comments Pt was pleasant and agreeable to participate in physical therapy. Pt is non-verbal but is able to communicate through pointing and head gestures to yes/no questions. Therapy Pain Assessment Pain When Pain Assessed At Rest Pain Present Pain Present Denied Pain M4 PT-IP Mobility and Gait Start: 09/02/19 16:16 Freq: NEEDED Status: Active Protocol: Document 09/03/19 10:57 MT (Rec: 09/03/19 12:02 MT [id number]) PT-Bed Mobility Assessment Supine to Sit Supine to Sit Moderate Assistance,Maximum Assistance,1 Person Assistance ,Head of Bed Elevated Scooting Scooting to Edge of Bed Standby Assistance PT-Transfer Assessment Sit to and From Stand Sit to and from Stand Contact Guard Assistance,1 Person Assistance,Use of Upper Extremities Equipment Transfer Assistive Device Gait Belt,Large Based Quad Cane Orthotic/Prosthetic Devices or Brace: Yes Transfers Transfer Destination Bed,Chair Transfer Technique Stand Step Pivot Transfer Ability Level of Assist Contact Guard Assistance,1 Person Assistance,Use of Upper Extremities Comments Mobility Comments Pt required mod-maxA for supine to sit bed mobility with use of head of bead elevation. He was able to scoot to the edge of bed with SBA. Pt's brought in his R AFO. Pt required assistance to put on the AFO. Pt was more stable and required less assist with the use of his AFO than with previous treatment w/o it. He required CGA and quad cane for the stand step transfer to the chair and minimal cueing for safety, whereas he was mod -maxA before. Gait Assessment Gait Gait Assistance Required: Contact Guard Assist,1 Person Assist Distance (Feet) 30 Able to Maintain Weight Bearing Status Yes During Gait Assistive Devices Assistive Device Gait Belt,Large Based Quad Cane Orthotic/Prosthetic Devices or Brace: Yes Gait Deviations General Gait Pattern Antalgic,Decreased Stride Length,Decreased Feet Clearance,Narrow Based Gait Factors Limiting Gait Function Factors Limiting Gait Function Decreased Activity Tolerance, Decreased Strength,Poor Balance,Poor Safety Awareness Comments Gait Comments Pt was able to ambulate CGA 30ft x2 with quad cane and R AFO in room with a rest break in between. Pt requires frequent rest breaks d/t fatigue, but requires very little cueing for safety. PT-Balance Assessment Sitting Balance and Reactions Static Sitting Balance Ability Good Dynamic Sitting Balance Ability Fair Standing Balance and Reactions Static Standing Balance Ability Fair Dynamic Standing Balance Ability Poor Device Used large based quad cane M5 PT-IP Objective Assessments Start: 09/02/19 16:16 Freq: NEEDED Status: Active Protocol: Document 09/02/19 14:58 AB (Rec: 09/02/19 16:40 AB [id number]) Orientation Orientation/Cognition Level of Alertness Alert Language Function Ability Expressive Aphasia Safety Awareness Decreased Safety Awareness Gross Range of Motion Lower Extremity ROM Assessment Right Impaired Impairments limited R DF ( to neutral only ) Strength Lower Extremity Strength Assessment Right Impaired Hip 3/5 Knee 3/5 Ankle 0/5 Sensation Assessment Comments Sensation Comments unable to asses Muscle Tone Muscle Tone WNL No Muscle Tone Location Right Upper Extremity Type of Tone Hypotonicity Severity of Tone Moderate M6 PT-IP Treatment Start: 09/02/19 16:16 Freq: NEEDED Status: Active Protocol: Document 09/02/19 14:58 AB (Rec: 09/02/19 16:40 AB [id number]) Physical Therapy Treatment Education Education Provided Safety M7 PT-IP Assessment and Plan Start: 09/02/19 16:16 Freq: NEEDED Status: Active Protocol: Document 09/03/19 10:57 MT (Rec: 09/03/19 12:02 MT [id number]) PT Summary Assessment and Plan Potential Rehabilitation Potential Good Summary Impairments ROM,Strength,Balance, Coordination,Sensation,Tone, Cognition,Bed Mobility, Transfers,Gait,Activity Tolerance Progress Towards Goals Slow Progress due to Activity Tolerance Assessment Summary Pt requires mod-maxA with his bed mobility. His R AFO was applied to the pt prior to transfer and gait training. He was able to perform his transfers and gait with quad cane and CGA and minimal cueing for safety. Pt's stated that daughter is a BRUSH WORKER and knows about how to care for him. If necessary, will conduct caregiver training with pt's and daughter. Based on pt's progress and decreased need for assistance with AFO, pt would be able to d/c home with access to 27/05 assist. Goals Bed Mobility Goal Standby Assistance Transfer Goal Standby Assistance,Cane Gait Goal Standby Assistance,Cane Gait Distance 100 Other Goals up/down 3 stesp with 1 rail CGA Days to Meet Goals 5 Frequency of Treatment Frequency Of Treatment Once a Day Treatment Plan Physical Therapy Treatment Plan Bed Mobility Training,Transfer Training,Gait Training, Therapeutic Exercise,Balance Retraining,Discharge Planning, Neuromuscular Re-ed, Coordination Retraining,Manual Therapy Other Recommendations and Next Treatment ambulation, caregiver training Focus when appropriate Recommendations To Nursing Amount of Assist Needed 1 Person Assist Discharge Recommendations PT Discharge Recommendations Home with 27/05 Assist,Home Health Other Discharge Recommendations home with 24/7/HHPT
--- NOTE | 2019-09-03 14:29 | DIET.PN ---
Dietary Note Assessment: Mr. Colvin is admitted for GLF. He has a HX of CAD, Afib, Hemiparesis and IDDM. He is nonverbal, but is able to understand questions asked. His was present during assessment and was able to provide hx. He has had poor appetite and intake for the last 8 mo with some weight loss. She reports BG plummeting often for the first time since DM dx. States she rarely has to give him his insulin, usually a couple of units of basal. Admits she has not had any diabetes education since he was first diagnosed. HT: 172.7cm WT: 70 kg UBW: 72.7 kg BMI: 23.5 Labs: B,101,96 Na: 126, 127, 130 Meds: Basaglar 18 u as needed; humalog SSI; 1000mg met BID MNA: 14 (normal) Ramsey: 19 Nutrition Diagnosis: Inadequate energy intake r/t etiology unknown aeb reports of energy intake from diet less than needs, lack of interest in food per pt . Interventions: 1. Discussed diabetes care and carbohydrate counting with pt . Provided handouts. 2. Discussed diabetes program and options for outpatient counseling to discuss pts diabetes care in detail. 3. Reviewed importance of protein with each meal. 4. Will provide ONS Glucerna if PO's < 70%. Diet Order: CCD EER: Kcal: 2100 lily @ 30 lily/kg Pro: 91 g @ 1.3 g/kg Monitoring/Evaluations: Wt, PO's, Labs, Need for ONS
[2019-09-03] MEDS: TAMSULOSIN 0.4 MG CAPSULE PO (17:02)
[2019-09-03] MEDS: INSULIN ASPART 100 UNIT/ML INSULN PEN SUBCUT (17:03)
--- NOTE | 2019-09-03 18:02 | PC.NURSE ---
Pt calm and cooperative, able to nod and make facial expressions known r/t pain, comfort, bedside supplies, need for urinal; this RN reviewed communication pictures to assess patient for dizziness, pain, headache, patient denies all; in room; ls clear, O2 RA=99%; pt is using call light, as needed for urinal; bed alarm active for high fall risk
[2019-09-03 18:14] LABS: Sodium 132 mmol/L (137-145)
[2019-09-03] MEDS: ATORVASTATIN 20 MG TABLET PO (21:35)
[2019-09-03] MEDS: SENNOSIDES 8.6 MG TABLET 17.2 MG PO (21:35)
[2019-09-03] MEDS: LISINOPRIL 10 MG TABLET PO (21:35)
[2019-09-03] MEDS: INSULIN GLARGINE 100 UNIT/ML 3ML PEN 18 UNIT SUBCUT (21:42)
[2019-09-04] VITALS (9 sets, daily range): BP systolic 86–134; BP diastolic 52–73; PULSE 69–74; RESP 16–20; TEMP 36.4–37.1; O2SAT 95–100
--- NOTE | 2019-09-04 02:09 | PC.NURSE ---
Addendum entered by Marina Bueno R.N. 09/04/19 03:33: Patient complaining of 5/10 pain. Difficulty determining where patient is having pain as shaking head no when various areas of body indicated. When asked if having pain with urination patient nodded yes; medicated with Tylenol. Original Note: Patient with expressive aphasia but nods head yes/no to questions asked and when given choices. Did know his birthdate and where he is but not date/age; unknown what his baseline orientation is. Breath sounds diminished but CTA with RA sat of 99%. HR regularly irregular. Denies nausea. BT present and abdomen is soft. Has been continent and voids per urinal or gets up to BSC with quad cane and 1 assist. Is unable to move right UE due to previous CVA and has contractures. Is able to move right LE but is weak. Dressing to laceration above right eye is CDI; bruising around right eye noted. Denies pain. Fall risk score is high and bed alarm is activated.
[2019-09-04] MEDS: ACETAMINOPHEN 325 MG TABLET 650 MG PO (03:29)
[2019-09-04 05:32] LABS: Blood Urea Nitrogen 11 mg/dL (9-20); Calcium 8.6 mg/dL (8.4-10.2); Carbon Dioxide 30 mmol/L (22-32); Chloride 98 mmol/L (98-107); Estimated Glomerular Filt Rate > 60.0 mL/min (>60); Glucose 106 mg/dL (80-110); HEMOLYSIS < 15 (0-50); Potassium 3.8 mmol/L (3.4-5.1); Sodium 135 mmol/L (137-145)
--- NOTE | 2019-09-04 08:54 | PM.PN.1 ---
Subjective Subjective Date Patient Seen: 09/04/19 Time Patient Seen: 08:54 Interval history: Patient seems stable overnight As noted previously by his PCP whole difficult time communicating with him. He has no complaints I can identify. Says he feels better. X-rays done yesterday are unremarkable Blood sugars have been adequately controlled. Sodium is much better this morning. Exam Vital Signs (past 8 hours): - 09/04/19 03:34 Temperature 97.6 F Pulse Rate 69 Respiratory Rate 18 Blood Pressure 116/60 Pulse Oximetry 99 Oxygen Delivery Method Room Air Oxygen Flow Rate 0 Objective Labs Result Diagrams: 09/02/19 01:35 09/04/19 05:00 Labs: Laboratory Results - last 24 hr 09/03/19 09/03/19 09/04/19 08:35 17:28 05:00 Sodium 132 L 135 L Potassium 3.8 Chloride 98 Carbon Dioxide 30 BUN 11 Creatinine 1.00 Estimated GFR > 60.0 BUN/Creatinine Ratio 11.0 Glucose 106 Calcium 8.6 Ur Random Sodium 157 H Assessment & Plan Assessment & Plan narrative: 1. Status post ground level fall-no obvious serious injury. Likely secondary to his hyponatremia. X-rays and intracranial evaluation done previously all unremarkable. Continue with Tylenol for pain. Continue with anticoagulation. 2. Hyponatremia-much improved. Continue off of spironolactone. Do not think needs specific intervention at this point. 3. Status post stroke-continue work with physical therapy. Has a hemiparesis after his stroke and will need continued therapies and assistance at home. 4. Diabetes-adequate control blood sugars for now. No change in intervention or medications/insulin at this point 5. History coronary disease-no active symptoms at this time no evidence of active coronary disease. Continue usual medications 6. Disposition-patient likely to return home with physical and occupational therapies via home health. Would like to ensure this is in place prior to discharge. Likely ready for discharge tomorrow morning. Hopefully can merely resume home health services that were initiated prior to this hospitalization Note: Greater than 25 minutes was spent evaluating the patient on the floor, including examining the patient, discussing clinical course with clinical and nursing staff, reviewing clinical course in the computer, preparing documentation and writing orders for continued management of care, discussing status with family as appropriate, reviewing plans for the next 24 hours with both patient/family and nursing staff as appropriate. Quality VTE Deep Vein Thrombosis/Pulmonary Embolism Present on Admission: No
[2019-09-04] MEDS: SERTRALINE 50 MG TABLET 100 MG PO (09:54)
[2019-09-04] MEDS: DABIGATRAN 75 MG CAPSULE 150 MG PO ×2 (09:54→21:01)
[2019-09-04] MEDS: DOCUSATE 100 MG CAPSULE PO (09:54)
[2019-09-04] MEDS: SODIUM CHLORIDE 0.9% FLUSH 10 ML IV ×2 (09:55→20:12)
--- NOTE | 2019-09-04 13:58 | ST.IP.CME ---
Visit Care Team Role Provider Type Everardo Delgado DO Emergency Provider Physician Specialty: Emergency Medicine Address: [address] [place] [address], [id number] Email: [email or web address] Delfino Epstein MD Admit Provider Physician Attending Provider Family Provider Primary Care Provider Specialty: Family Practice Address: [address] [place] [address], [id number] Email: [email or web address] Current Diagnoses Hypo-osmolality and hyponatremia (09/02/19) Past Medical History (Last Updated 07/23/18 @ 15:38 by Aida Jackson) Antiphospholipid antibody syndrome (Chronic Medical) 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 (Chronic Medical 09/01/15) Aphasia following cerebrovascular disease (Chronic Medical 01/27/15) CAD (coronary artery disease) (Chronic Medical) Cardiac arrhythmia (Chronic Medical) Cerebrovascular accident (CVA) involving left middle cerebral artery territory (Chronic Medical 09/01/15) Chronic atrial flutter (Chronic Medical 09/01/15) Chronic systolic congestive heart failure (Chronic Medical 09/01/15) Coronary artery disease involving [place] coronary artery of [place] heart without angina pectoris (Chronic Medical 09/01/15) Diabetes mellitus (Chronic Medical) DVT (deep venous thrombosis) (Resolved Medical) Essential hypertension (Chronic Medical 09/01/15) Hemiparesis affecting dominant side as late effect of cerebrovascular accident (Chronic Medical 01/27/15) History of stroke with residual deficit (Chronic Medical) Right-sided neurological deficits Hyperlipidemia (Chronic Medical 09/01/15) Hyperlipidemia (Chronic Medical) Myocardial infarction (Resolved Medical) Pacemaker (Chronic Medical) Rheumatoid arthritis (Chronic Medical) Stenosis of left carotid artery (Chronic Medical 12/22/13) Systolic heart failure (Resolved Medical) Type 2 diabetes mellitus (Chronic Medical) Speech-Language Pathology Cognitive Evaluation PERSONNEL MANAGER Cognitive/Memory Evaluation Start: 09/04/19 13:43 Freq: Status: Active Protocol: Document 09/04/19 13:44 LNK (Rec: 09/04/19 13:58 LNK [id number]) Evaluation of Cognition Session Time Visit Start Time 12:15 Visit Stop Time 12:35 Total Visit Minutes [address] iDmas Past Medical History Patient History Sukh was seen for a cognitive assessment following a fall during which he hit his head requiring stitches. He has been seen in the out patient clinic by this PERSONNEL MANAGER for assistance with using his AAC device. His baseline communication is that he is nonverbal secondary to CVA. uses gesture and facial expressions to communicate. He is quite effective using these communication modes. Sukh is able to understand all of what is said to him and has a delightful sense of humor. Previous Therapy Previous Speech-Language Therapy Yes History of Therapy Outpatient speech therapy at [facility] Oral Motor Examination Oral Motor Exam Completed No: at baseline - Informal Assessment Receptive Language Normal Yes Expressive Language Normal No: Facial expressions, gestures are primary mode - Cognition Orientation Skill Level Mildly Impaired Attention Skill Level WFL Problem Solving/Reasoning/Judgment Skill Level Mildly Impaired Divergent Naming Comment unable Category Naming/Identification Comment unable Sequencing Skill Level Mildly Impaired Comment using pictures is able given adequate time Cognitive Assessment Cognitive Assessment Because Sukh is non verbal, using a more structured/formal means of cognitive assessment would not be possible. Informal measures were conducted with PERSONNEL MANAGER asking questions relative to outpatient therapy, yes/no questions, orientation questions, etc. 15 minutes was spent with Sukh and his yesterday during a simple visit. Today 20 minutes were spent with Sukh. He appears to be at baseline cognitively. He is expected to go home with Home health services. ST serviced while he is home bound targeting his AAC use is recommended. - Memory - Total Time Full Evaluation Time 40
--- NOTE | 2019-09-04 15:16 | CM.DPNOTE ---
Addendum entered by СВЕТЛАНА Salguero 09/06/19 08:34: DC Note: DC home w/spouse via her pov Saturday09.05.19, IMM reviewed and verbal obtained. Pt/spouse agreeable to plan of home w/ gisellnabeel COLÓN RN/PT/OT/NICKEL PLANT OPERATOR, F2F signed by Dr Chaney Saturday. JW Original Note: DCP Cont: Reviewed chart. Dr Fong indicates DC possibly Saturday, Home Health therapies recommended. Met w/pt, reviewed DCP, pt nods yes and no in this conversation and when this LADIES LOCKER ROOM ATTENDANT asks if spouse should be called pt nods yes. Placed call to pt's spouse Shankar, reviewed DCP. Spouse remains agreeable to taking pt home and feels home health may be helpful upon DC, no agency preference. Placed call to gisell COLÓN, spoke w/ Ahsan, discussed referral then faxed referral requesting PT/OT/NICKEL PLANT OPERATOR/RN F2F still needs to be signed, HH order still needed P: DC likely home w/family, HH and close outpt f/u. CORTEZ
--- NOTE | 2019-09-04 15:25 | DI.CT.S_ITS ---
PROCEDURE: CT KIDNEY URETER BLADDER (KUB) INDICATIONS: flank pain TECHNIQUE: Noncontrast 5 mm thick sections acquired from the diaphragms to the symphysis. 5 mm thick coronal and sagittal reformats were then performed. For radiation dose reduction, the following was used: automated exposure control, adjustment of mA and/or kV according to patient size. COMPARISON: [facility], CT, KIDNEY/ URETER/BLADDER, 07/24/2016, 8:59. FINDINGS: Image quality: Excellent. Lung bases: Mild patchy airspace opacity at the lung bases. No pleural effusion. Heart size is normal. Left-sided pacemaker with right atrial and right ventricular leads. Urinary system: Both kidneys are normal in size. Right kidney 4 mm nonobstructing kidney stone. Several simple renal cysts bilaterally. No solid mass seen on this noncontrast examination. No hydronephrosis or perinephric fat stranding. Both ureters appear non-dilated throughout their expected courses. Bladder is decompressed limiting evaluation. no calcified bladder stones. Other solid organs: Liver is normal in size. Gallbladder is nondistended. Multiple partially calcified gallstones. No pericholecystic fluid. Pancreas is normal in contours. Spleen is normal in size. No adrenal nodules. Peritoneum and bowel: Unenhanced bowel loops demonstrate normal wall thickness and caliber. No free fluid or air. Nodes and vessels: No retroperitoneal or mesenteric adenopathy by size criteria. Aorta and inferior vena cava are normal in caliber. Abdominal wall: No ventral hernias. Pelvis: Small volume of free pelvic fluid, (5/48). No inguinal hernias or adenopathy. Prostatomegaly. Bones: No suspicious bony lesions. No vertebral body compression fractures. IMPRESSION: 1. No acute inflammatory change identified. Small volume of free fluid in the pelvis. 2. Nonobstructing right kidney stone measuring 4 mm. 3. Mild patchy glass opacity at the lung bases. Favor atelectasis over pneumonia or aspiration. 4. Cholelithiasis. No pericholecystic fluid. Dictated by: Daquan Christiansen M.D. on 09/04/2019 at 16:02 Approved by: Daquan Christiansen M.D. on 09/04/2019 at 16:28
--- NOTE | 2019-09-04 15:48 | PT-IP ANOTE ---
Pt unavailable, he at a CAT scan will see in AM.
--- NOTE | 2019-09-04 15:50 | OT.IP.TRT ---
Current Diagnoses Hypo-osmolality and hyponatremia (09/02/19) Occupational Therapy Treatment Note M2 OT-IP Current Condition Start: 09/02/19 16:52 Freq: Status: Active Protocol: Document 09/02/19 14:58 [facility] (Rec: 09/02/19 17:24 [facility] [id number]) Occupational Therapy Current Condition Current Condition Evaluation Date 09/02/19 Treatment Diagnosis GLF, hypoatremia, chronic late effects CVA Weight Bearing Status Weight Bearing Status Weight Bear as Tolerated M3 OT- IP Subjective and Pain Start: 09/02/19 16:52 Freq: Status: Active Protocol: Document 09/04/19 15:50 [facility] (Rec: 09/04/19 15:50 [facility] [email or web address]) OT- Subjective Occupational Therapy Visit Type Type Administrative Note Notes Pt at CAT scan, to see tomorrow for OT treatment.
[2019-09-04] MEDS: INSULIN ASPART 100 UNIT/ML INSULN PEN SUBCUT ×2 (16:40→21:01)
[2019-09-04] MEDS: TAMSULOSIN 0.4 MG CAPSULE PO (18:51)
[2019-09-04] MEDS: ATORVASTATIN 20 MG TABLET PO (21:00)
[2019-09-04] MEDS: LISINOPRIL 10 MG TABLET PO (21:00)
[2019-09-04] MEDS: CARVEDILOL 6.25 MG TABLET PO (21:01)
[2019-09-04] MEDS: INSULIN GLARGINE 100 UNIT/ML 3ML PEN 18 UNIT SUBCUT (21:02)
[2019-09-05 04:04] VITALS: BP 94/63; PULSE 82; RESP 16; TEMP 36.9; O2SAT 100
[2019-09-05 08:00] VITALS: BP 92/59; PULSE 91; RESP 16; TEMP 36.3; O2SAT 97
[2019-09-05 08:06] VITALS: O2SAT 98
--- NOTE | 2019-09-05 08:51 | PM.DS.1 ---
History of Present Illness History of Present Illness Date Patient Seen: 09/05/19 Time Patient Seen: 08:15 Chief complaint: GLF Narrative: From Dr. Epstein's H&P: 63-year-old male with significant cerebrovascular accident with aphasia and hemiparesis a number of years ago. Also carries a diagnosis of antiphospholipid antibody syndrome, coronary artery disease status post myocardial infarction, congestive heart failure, atrial fibrillation, rheumatoid arthritis and on immune suppressants and insulin-dependent diabetes. Patient lives at home with his and family members who are caregivers. Patient is mobile in the home with a cane. In does not speak but answers in one-word questions. He was in his usual state of health. Other than he has been participating in physical therapy. Recently he has had outpatient checkups with Cardiology as well as Rheumatology. As best I can gather from notes patient and family members. Patient got up in the evening and had a fall. When he was found by family members he was surrounded and blood had a laceration to his head bruising and ambulance was called and he was brought into the emergency department for evaluation. During this time frame patient had a number of episodes of vomiting. Loss of bowel control. Patient has not had was significant changes recently in his health. He is not known to have a seizure disorder. There has been recent changes to his antidepressant medications. On evaluation the emergency room he had blood work done which showed he had hyponatremia. He had a CT scan of his neck as well as head. His head showed soft tissue injury no skull fracture no intercranial bleeding although patient is on blood thinner. CT scan of the neck was reportedly normal. On my evaluation. Patient is comprehending some words. He appears to be in pain although he does not verbalize where. Discharge Providers Provider Date of admission: 09/02/19 03:00 Discharge Date: 09/05/19 Primary care physician: Delfino Epstein MD Consults: 09/02/19 07:40 Consult to Dietitian, Adult Routine Comment: Reason For Exam: nutriton evaluation Consult to Occupational Therapy Evaluate & Treat Comment: Physician Instructions: Evaluate and treat 09/02/19 07:41 Consult to Care Management Routine Comment: Consult to Physical Therapy Evaluate & Treat Comment: Physician Instructions: Evaluate and Treat 09/04/19 10:05 Consult to Speech Therapy Evaluate & Treat Comment: Physician Instructions: Evaluate and treat Discharge provider: Shannan Chaney DO Summary Hospital Course Discharge Diagnosis: Hyponatremia Ground level fall 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 Hyponatremia improved with normal saline and discontinuation of spironolactone with significant improvement in patient's symptoms. Day of discharge his said this was the best he has felt and looked in months. He was hungry for breakfast and had previously had no appetite. She feels he has been different since starting spironolactone at the beginning of the year with Cardiology. Workup is still pending regarding a cause for the hyponatremia though could be due to spironolactone. Urine sodium is elevated and morning cortisol decreased suggesting possible glucocorticoid deficiency however serum osmolality is pending which will help complete picture. I do not believe the patient needs to stay in the hospital while awaiting this result. He is essentially better than his baseline at this point. Will not restart spironolactone on discharge. He did suffer a significant fall prior to admission. X-rays and CT all unremarkable. Patient denied any pain the day of discharge. Diabetes was well controlled in the hospital and he will discharge on his same medications. Coronary artery disease and atrial fibrillation stable without new events. Continue anticoagulation. Patient will discharge today with home health. Needs to follow up with Dr. Epstein in the next week or two to recheck sodium and follow-up serum osmolality for an underlying cause of hyponatremia, possibly glucocorticoid deficiency. Status at Discharge Cognitive/behavioral status at discharge: at baseline, oriented Overall status at discharge: patient is progressing back to baseline Time Spent with Patient Time spent: Less than 30 minutes Exam Vital Signs (past 8 hours): - 09/05/19 04:04 09/05/19 08:06 Temperature 98.4 F Pulse Rate 82 Respiratory Rate 16 Blood Pressure 94/63 Pulse Oximetry 100 98 Oxygen Delivery Method Room Air Oxygen Flow Rate 0 Narrative Exam Narrative: General: Sitting up eating breakfast, awake and alert. Smiles in response to questions though does not speak. HEENT: Bandage over right eyebrow. Moist mucosa. CV: Regular rate and rhythm Lungs: CTAB, no wheezes, rales, or rhonchi Abdomen: Soft, nontender Extremities: Warm, no edema Neuro: Right-sided hemiparesis Objective Imaging Cervical spine CT: Radiologist's impression: IMPRESSION: No fracture. No acute osseous lesion. If symptoms and/or clinical suspicion for pathology persists, evaluation with MRI may be helpful for further assessment. Dictated by: Kinjal Snow MD, PhD on 09/02/2019 at 7:57 Approved by: Kinjal Snow MD, PhD on 09/02/2019 at 8:01 CT scan - head: Radiologist's impression: IMPRESSION: No acute intracranial disease process. Dictated by: Kinjal Snow MD, PhD on 09/02/2019 at 7:26 Approved by: Kinjal Snow MD, PhD on 09/02/2019 at 7:28 Hip x-ray: Radiologist's impression: IMPRESSION: No displaced fractures are seen on these plain films. If there is focal tenderness, or other clinical concern for a fracture not seen on these images in this patient with a given history of trauma, please consider a dedicated CT or a short-term followup plain film series (in 1-2 weeks) for further evaluation. Dictated by: Geoff Kumar M.D. on 09/03/2019 at 8:17 Approved by: Geoff Kumar M.D. on 09/03/2019 at 8:19 CT KUB: Radiologist's impression: IMPRESSION: 1. No acute inflammatory change identified. Small volume of free fluid in the pelvis. 2. Nonobstructing right kidney stone measuring 4 mm. 3. Mild patchy glass opacity at the lung bases. Favor atelectasis over pneumonia or aspiration. 4. Cholelithiasis. No pericholecystic fluid. Dictated by: Daquan Christiansen M.D. on 09/04/2019 at 16:02 Approved by: Daquan Christiansen M.D. on 09/04/2019 at 16:28 Labs Result Diagrams: 09/02/19 01:35 09/04/19 05:00 Discharge Plan Discharge Plan Patient Disposition: Home Discharge Med Rec/Prescriptions Prescriptions: Continued (DME) Disabled Parking Permit 0 .ROUTE .MEDSUPPLY Qty: 1 RF: 0 insulin aspart U-100 [Novolog U-100 Insulin aspart] 100 unit/mL solution See Rx Instructions SUBCUT ACHS Qty: 10 RF: 11 (DME) pen needle, diabetic [Comfort EZ Pen [place]] 32 gauge x 3/16 needle See Dose Instructions .ROUTE .MEDSUPPLY Qty: 100 RF: 3 dabigatran etexilate [Pradaxa] 150 mg capsule 150 mg PO BID Qty: 60 RF: 11 carvedilol [Coreg] 6.25 mg tablet 6.25 mg PO BID Qty: 180 RF: 2 metformin [Glucophage] 1,000 mg tablet 1,000 mg PO BIDCC Qty: 60 RF: 11 etanercept 50 mg/mL (0.98 mL) pen injector 50 mg SUBCUT QWEEK Qty: 3.92 RF: 11 tamsulosin 0.4 mg capsule 0.4 mg PO QPM Qty: 90 RF: 3 methotrexate sodium 2.5 mg tablet 7.5 mg PO QWEEK Qty: 12 RF: 11 sertraline 50 mg tablet 100 mg PO DAILY RF: 0 atorvastatin [Lipitor] 20 mg tablet 20 mg PO BEDTIME RF: 0 lisinopril 10 mg tablet 10 mg PO DAILY RF: 0 folic acid 1 mg tablet 1 mg PO DAILY RF: 0 multivitamin with minerals Tablet 1 tab PO DAILY Qty: 0 RF: 0 Basaglar KwikPen U-100 Insulin 100 unit/mL (3 mL) insulin pen 18 unit SUBCUT DAILY PRN (Reason: blood sugar control) RF: 0 Discontinued spironolactone 25 mg tablet 12.5 mg PO QPM RF: 0 Follow up/Referrals: Delfino Epstein MD [Primary Care Provider] - 1 Week Provider Discharge Instructions Diet: Diet as Tolerated Skin/Wound/Dressing Care Report to your healthcare provider any signs of infection, such as:: chills, fever, night sweats and increased pain Visit Report/Discharge Packet Visit Report Forms: Patient Portal/API, Stroke Signs & Symptoms Discharge Data Primary Care Provider: Delfino Epstein Quality VTE Deep Vein Thrombosis/Pulmonary Embolism Present on Admission: No
[2019-09-05] MEDS: SERTRALINE 50 MG TABLET 100 MG PO (09:21)
[2019-09-05] MEDS: DOCUSATE 100 MG CAPSULE PO (09:21)
[2019-09-05] MEDS: DABIGATRAN 75 MG CAPSULE 150 MG PO (09:21)
[2019-09-05] MEDS: CARVEDILOL 6.25 MG TABLET PO (09:21)
[2019-09-05] MEDS: SODIUM CHLORIDE 0.9% FLUSH 10 ML IV (09:22)
[2019-09-05 11:55] VITALS: BP 96/62; PULSE 75; RESP 16; TEMP 36.3; O2SAT 100
[2019-09-05] MEDS: INSULIN ASPART 100 UNIT/ML INSULN PEN SUBCUT (12:05)
--- NOTE | 2019-09-05 12:59 | PC.NURSE ---
Day shift: Pt left unit via WC to home with home health. Left with his spouse who will drive them home. Pt's son is at the house and will be able to help. The spouse stated that they have a WC at home to use. Paperwork signed and all questions answered. Pt has all personal belongings. No new MD scrips.
[2019-09-05 17:14] LABS: Osmolality, Serum 277 mosm/kg (260-310)
== END 2019-09-05 13:02 | disposition home health service (06) | DRG 641 ==
LOC: ED 02:15 → AC 03:01
PROVIDERS: Admitting Provider Family Medicine; Emergency Provider Emergency Medicine; Family Provider Family Medicine; PCP Family Medicine; Visit Provider Family Medicine
DX: E87.1 Hypo-osmolality and hyponatremia (principal); D68.61 Antiphospholipid syndrome; I50.22 Chronic systolic (congestive) heart failure; I69.351 Hemiplegia and hemiparesis following cerebral infarction affecting right dominant side; I48.91 Unspecified atrial fibrillation; Z79.01 Long term (current) use of anticoagulants; I11.0 Hypertensive heart disease with heart failure; I69.320 Aphasia following cerebral infarction; S01.81XA Laceration without foreign body of other part of head, initial encounter; R10.9 Unspecified abdominal pain; E11.9 Type 2 diabetes mellitus without complications; Z79.4 Long term (current) use of insulin; M06.9 Rheumatoid arthritis, unspecified; I67.9 Cerebrovascular disease, unspecified; I25.10 Atherosclerotic heart disease of native coronary artery without angina pectoris; F32.9 Major depressive disorder, single episode, unspecified; M25.551 Pain in right hip; Z95.810 Presence of automatic (implantable) cardiac defibrillator; W18.30XA Fall on same level, unspecified, initial encounter
CPT/HCPCS: 12052; 36415; 70450; 72125; 73502; 74176; 80048; 81001; 82533; 82962; 83930; 84295; 84300; 85025; 85610; 85730; 93041; 96125; 96360; 97110; 97116; 97161; 97165; 97530; 97535; 99223; 99232; 99239; 99283; 99284; 99406; J1940; J2405

== ENCOUNTER → 2019-09-11 13:20 | Outpatient (CLI) | payer OTHER, MEDICARE, MEDICAID, SELFPAY ==
[2019-09-02 12:00] VITALS: BMI 23.4
[2019-09-11 14:29] LABS: BUN Creatinine Ratio 18.8 (6-22); Blood Urea Nitrogen 15 mg/dL (9-20); Calcium 9.1 mg/dL (8.4-10.2); Carbon Dioxide 28 mmol/L (22-32); Chloride 93 mmol/L (98-107); Estimated Glomerular Filt Rate > 60.0 mL/min (>60); Glucose 140 mg/dL (80-110); Potassium 4.8 mmol/L (3.4-5.1); Sodium 131 mmol/L (137-145)
[2019-09-11 14:39] LABS: HEMOLYSIS 68 (0-50)
== END ==
PROVIDERS: PCP Family Medicine; Visit Provider Family Medicine
DX: E87.1 Hypo-osmolality and hyponatremia (principal)
CPT/HCPCS: 36415; 80048

== ENCOUNTER → 2019-09-24 08:21 | Oncology outpatient (ONC) | payer OTHER, MEDICARE, MEDICAID, SELFPAY ==
[2019-09-02 12:00] VITALS: BMI 23.4
[2019-09-24] MEDS: COSYNTROPIN 0.25 MG VIAL IV (08:49)
[2019-09-24 09:10] VITALS: BP 94/56; PULSE 75; RESP 18; TEMP 36.9; O2SAT 100
[2019-09-24 10:30] LABS: HEMOLYSIS < 15 (0-50); Iron 51 ug/dL (49-181)
[2019-09-24 10:42] LABS: Percent Iron Saturation 20 % (20-50); Total Iron Binding Capacity 256 ug/dL (261-462); Transferrin 178 mg/dL (206-381)
[2019-09-24 11:02] LABS: Cortisol Basline for Stim. 9.94 ug/dL
[2019-09-24 11:03] LABS: Cortisol 30 MIN Post Stim. 17.6 ug/dL
[2019-09-24 11:03] LABS: Cortisol 60 MIN Post Stim. 17.6 ug/dL
[2019-09-24 11:50] LABS: Folate > 20.0 ng/mL (2.76-20.0); Vitamin B12 259 pg/mL (239-931)
== END ==
LOC: ONC 08:23
PROVIDERS: PCP Family Medicine; Visit Provider Family Medicine
DX: E87.1 Hypo-osmolality and hyponatremia (principal); E27.8 Other specified disorders of adrenal gland
CPT/HCPCS: 36000; 36415; 82607; 82728; 82746; 83540; 83550; 96374; J0834

== ENCOUNTER → 2019-10-26 12:26 | Outpatient (CLI) | payer OTHER, MEDICARE, MEDICAID, SELFPAY ==
[2019-09-02 12:00] VITALS: BMI 23.4
[2019-10-26 14:09] LABS: Add Manual Diff / Slide Review NO; Basophils Absolute Auto 0 /uL (0-100); Basophils Percent Auto 0.3 % (0-2); Eosinophils Absolute Auto 100 /uL (0-450); Eosinophils Percent Auto 3.3 % (2-4); Hematocrit 34.2 % (41-53); Hemoglobin 11.8 g/dL (13.5-17.5); Lymphocytes Absolute Auto 700 /uL (1100-4500); Lymphocytes Percent Auto 18.2 % (25-40); Mean Corpuscular HGB Conc 34.4 % (30-36); Mean Corpuscular Hemoglobin 30.6 PG (26-34); Monocytes Absolute Auto 400 /uL (0-900); Monocytes Percent Auto 11.5 % (3-14); Neutrophils Absolute Auto 2400 /uL (1500-7000); Neutrophils Percent Auto 66.7 % (50-75); Platelet Count 179 X10^3/uL (150-400); Red Blood Cell Count 3.84 X10^6/uL (4.5-5.9); Red Cell Distribution Width 15.8 % (11.6-14.8); White Blood Cell Count 3.6 X10^3/uL (4.5-11.0)
[2019-10-26 14:20] LABS: Alanine Aminotransferase 22 IU/L (<50); Albumin 3.7 g/dL (3.5-5.0); Albumin Globulin Ratio 0.9 (1.0-2.8); Alkaline Phosphatase 83 U/L (38-126); Aspartate Aminotransferase 38 IU/L (17-59); Bilirubin Total 0.4 mg/dL (0.2-1.3); Blood Urea Nitrogen 9 mg/dL (9-20); Calcium 9.1 mg/dL (8.4-10.2); Carbon Dioxide 29 mmol/L (22-32); Chloride 98 mmol/L (98-107); Estimated Glomerular Filt Rate > 60.0 mL/min (>60); Globulin 4.1 g/dL (1.7-4.1); Glucose 179 mg/dL (80-110); HEMOLYSIS < 15 (0-50); Potassium 4.3 mmol/L (3.4-5.1); Sodium 133 mmol/L (137-145); Total Protein 7.8 g/dL (6.3-8.2)
[2019-10-26 15:09] LABS: Vitamin B12 530 pg/mL (239-931)
== END ==
PROVIDERS: PCP Family Medicine; Visit Provider Family Medicine
DX: E53.8 Deficiency of other specified B group vitamins (principal); E87.1 Hypo-osmolality and hyponatremia; R53.1 Weakness
CPT/HCPCS: 36415; 80053; 82607; 85025

== ENCOUNTER → 2019-12-16 13:52 | Outpatient (CLI) | payer OTHER, MEDICARE, MEDICAID, SELFPAY ==
[2019-09-02 12:00] VITALS: BMI 23.4
--- NOTE | 2019-12-16 13:55 | DI.RAD.S_ITS ---
PROCEDURE: FL BARIUM SWALLOW W SPEECH INDICATIONS: coughing and dysphagia TECHNIQUE: Examination was conducted in conjunction with speech pathology per standard protocol. In the lateral projection, filming was performed of the patient swallowing. AP projection filming may also be performed with patient swallowing. COMPARISON: [facility], , BARIUM SWALLOW, 05/02/2011, 8:52. FINDINGS: Function: The oral preparatory phase appears normal, with proper containment. The subsequent oral propulsive phase, pharyngeal phase, and esophageal phase of swallowing also appear normal with all proffered substances. No laryngotracheal penetration or aspiration. There is mild-moderate residue. Morphology: No cricopharyngeal bar is identified. No cervical esophageal webs. No Zenker's diverticulum. No strictures. IMPRESSION: No aspiration identified Dictated by: Michael Gu M.D. on 12/16/2019 at 16:53 Approved by: Michael Gu M.D. on 12/16/2019 at 16:54
--- NOTE | 2019-12-16 15:43 | ST.SWALLOW ---
Visit Care Team Role Provider Type Delfino Epstein MD Attending Provider Physician Primary Care Provider Referring Provider Specialty: Family Practice Address: [address] [place] [address], [id number] Email: [email or web address] Modified Barium Swallow Study [employer] Modified Barium Swallow Study Start: 12/16/19 14:39 Freq: Status: Active Protocol: Document 12/16/19 14:40 LNK (Rec: 12/16/19 15:42 LNK [id number]) Modified Barium Swallow Study Total Time Visit Start Time 14:00 Visit Stop Time 14:30 Total Visit Minutes 30 Visit Information Visit Number 2 Plan of Care Dates 11/13/19- Referral Referring Physician Dr. Pratt Patient Information Patient History This 63-yr-old male has been seen for ST for nonverbal expressive aphasia. Most recently he was treated for a small a small CVA. Sukh is hemiparetic on the right side. He uses a cane to assist with walking. He is nonverbal but ubderstands all that is said to him. Sukh was seen for a clinical swallow assessment secondary to d/c from therapies. At that session, his noted that Sukh was exercises by [employer] because he was aspirating. Mrs. Colvin did report though that at times Sukh will cough and choke during meals. In reviewing the records from his last hospitalization, there was no mention of difficulty with swallowing. A MBSS was recommended to determine if Sukh is aspiration and to direct the POC. Subjective Observations Sukh was seated in the fluoroscopy chair. Directions regarding th procedure were provided. He indicated that he understood and agreed to proceed. Patient Positioning Position View Lateral Imaging Lateral View Textures Administered Trials Presented Thin Liquid via Spoon,Thin Liquid via Cup,Barnett Liquid via Spoon,Barnett Liquid via Cup,Regular Textures Oral Phase Source: MBSIMP (TM) (C) Bolus Specific Scoring Grid Lip Closure WFL Tongue Control During Bolus Hold WFL Bolus Prep/Mastication Mild Impairment Bolus Transport/Lingual Motion Mild Impairment A/P Lingual Propulsion Delay Yes: 1-2sec Oral Residue Minimal Impairment Residue Clearing Minimal Impairment Nasal Regurgitation No Additional Oral Phase Observations Sukh hes upper and lower dentures. Informal assessmnet indicated OM structures and function to be mildly impaired , especially the right side. Mastication is slow with more anterior munching that use of molars. May be related to fit of his dentures. Pharyngeal Phase Source: MBSIMP (TM) (C) Bolus Specific Scoring Grid Delayed Initiation of Pharyngeal Swallow Yes: Swallow delay increases as PO intake procedes Soft Palate Elevation WFL Tongue Base Strength/Range of Motion Moderate Impairment Residue Along the Tongue Base Yes Clearance of Residue Along Tongue Base Mild Impairment Laryngeal Elevation Moderate Impairment Anterior Hyoid Movement Severe Impairment Epiglottic Range of Motion Severe Impairment Vallecular Residue Yes Clearance of Vallecular Residue Moderate Impairment Laryngeal Vestibular Closure Minimal Impairment Pharyngeal Stripping Wave Moderate Impairment Posterior Pharyngeal Wall Residue Yes Upper Esophageal Sphincter Opening Mild Impairment Residue in the Pyriform Sinuses Yes Clearance of Residue in the Pyriform Moderate Impairment Sinuses Esophageal Clearance Upright Position Mild Impairment Pharyngoesophageal Backflow Observed Yes: back-flow observed x3 from UES back up toward the base of tongue Additional Pharyngeal Phase Observations As the MBSS continued it appeared as though Sukh's swallow was getting weaker. He demonstrated pooling in the valeculla, the pyriform sinuses, the posterior pharyngeal wall and the base of tongue. As the MBSS continued the residue in these areas continued. Cuing for a second swallow resulted in an incomplete swallow with several tongue pumps observed. His volitional cough was weak. The hyolaryngeal elevation was incomplete with minimal to no hyoid movement forward. The epiglottis did not invert. There was minimal pharyngeal constriction noted. Flash penetration occurred x3 with nectar thick liquids No aspiration was observed. A/P View Clinical Impressions Dysphagia Type oropharyngeal -- moderately severe Findings Sukh's swallow was better at the start of the study and got progressively as the study went on. He presents with a lot of pharyngeal pooling, which is difficult to control. Overall he demonstrates weak pharyngeal control within the pharynx: minimal pharyngeal constriction, no epiglottal inversion, increasing premature spillage into the pharynx and a lot of pharyngeal pooling. His risk for aspiration increases as a meal continues. Small meals more often in the day is recommended to reduce the effort and thereby the aspiration risk for Sukh. Rehabilitation Potential Excellent Patient Appropriate for Therapy Yes: 2-3 visits to discuss options and Recommendations Diet Liquids Order Thin Diet Order Mechanical Soft Medication Recommendation Whole in Carrier,Crushed in Carrier Additional Dietary Needs Reminders to Use Strategies Aspiration Precautions Recommended Precautions Upright at 90 Degrees,Frequent Rest Periods,Small Bites/Sips Additional Precautions small meals more often during day Treatment Plan Therapy Recommendations Outpatient Speech Therapy Recommended Referrals Primary Care Physician Compensatory Strategies Recommendations Sitting Upright (90 deg), Double Swallow,Small Bites and Sips Short Term Goals Sukh and his will report less cough/choke with small, more frequent meals. Sukh and his will view the [facility] video in order to better understand his aspiration risk. Penitentiary Goals Suhk will safely tolerate the least restrictive diet without s/sx of aspiration.
== END ==
PROVIDERS: PCP Family Medicine; Referring Provider Family Medicine; Visit Provider Family Medicine
DX: I69.359 Hemiplegia and hemiparesis following cerebral infarction affecting unspecified side (principal); R05 Cough; R13.10 Dysphagia, unspecified
CPT/HCPCS: 74230; 92611

== ENCOUNTER 2020-01-11 11:30 | Outpatient (RCR) | payer OTHER, MEDICARE, MEDICAID, SELFPAY ==
[2019-09-02 12:00] VITALS: BMI 23.4
--- NOTE | 2019-11-13 16:31 | ST.OPIE ---
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 Pratt Setting Assessment Location Outpatient Care Visit Type Note Type Initial Evaluation Next Note Type Next Note Type Treatment Note Patient Information Identification Type Name,ID Wristband History Sukh is seen for a swallowing assessment secondary to d/c from HH therapies. The Home Health ST was targeting swallowing exercises, having Sukh practicing 5 different exercises. Each exercise is designed to target a specific portion of the swallow process . When asked if Sukh had been choking or did he have pneuminia, his noted that he was doing exercises because he was aspirating. In reviewing the records from his last hospitalization, there was no mention of difficulty with swallowing. Mrs. Colvin did report though that at times Sukh will cough and choke during meals. Subjective Observations Peña came to his appointment on time. His was with him. Evaluation Oral Phase Comments Om examination noted slowed muscle movement with reduced ROM. Sukh is non verbal. Pharyngeal Phase Comments Pharyngeal phase appears overtly to be WFL; however, that does not r/o aspiration risk. In order to determine the current status of Sukh's swallowing, an MBSS is recommended to r/o aspiration risk and determine appropriate POC. Treatment Plan Therapy Recommendations Recommend a referral for MBS to r/o aspiration and to better develop a POC for Sukh's success. HORTICULTURE INSTRUCTOR Follow Up following MBS
--- NOTE | 2019-11-13 16:33 | ST.OPPOC ---
Physical, Occupational & Speech Therapy At [facility] Visit Care Team Role Provider Type Delfino Epstein MD Attending Provider Physician Primary Care Provider Address: [address] [place] [address], [phone] Speech Pathology Plan of Care General Information This 63-yr-old male was seen for ST for nonverbal expressive aphasia. He has been seen by several speech pathologists at [facility] over the years since initial CVA in 2013. Most recently he was treated for a small a small CVA. Visit Number 2 Plan of Care Dates 11/13/19- Chief Complaint(s) Speech Patient Knowledge/Awareness of Excellent DRAFTER SEISMOGRAPH Role in Treatment Parent/Caretake Knowledge/ Excellent Awareness of DRAFTER SEISMOGRAPH Role in Treatment Patient/Caregiver Compliance Fair with Home Exercise Program Fdc Goals 1. Sukh will be modified independent with execution of home exercise program (upper extremity and functional activities) with support of family utilizing provided written and visual instructions from therapist. Treatment Activities Willy was accompanied by his daughter Clara. They brought in his [employer] AAC. According to Clara, Willy's has been working on simplifying the AAC to better meet Willy's ADL needs. Review of the icons with Willy, we determined that the overall AAC, as currently set up, is too complicated to make it practical for Willy. Looking at the different levels of the icons and messages, we determined several icons and/or levels that could be eliminated or simplifed. Willy was attentive and used body language to indicate agreement or not. Rehabilitation Potential Good Assessment of Improvement Sukh was recently hospitalized for a fall and was discharged to home with home health services : OT, PT, ST. Discharge from outpatient service at this time Reviewed with Patient Goals,Home Exercise Program Patient Understanding Excellent Length of Therapy Recommended No Further Therapy Comment 12 weeks ongoing Treatment Frequency No Further Therapy Treatment Duration 45 Minutes Therapeutic Contents AAC Patient Recommendations Discharge from Speech Comment Consult w/ pt's ; limited therapist availability Electronically Signed by: SORAYA Galan 11/13/19 2373 Please Sign and Return: I have reviewed this Plan of Care and certify that the skilled therapy services above are required to meet the patient?s needs. Physician Signature Date Printed Name and Credentials Clinical Instructor Signature Printed Name and Credentials
--- NOTE | 2019-12-21 12:56 | ST.OPPOC ---
Physical, Occupational & Speech Therapy At [facility] Visit Care Team Role Provider Type Delfino Epstein MD Attending Provider Physician Primary Care Provider Address: [address] [place] [address], [id number] Speech Pathology Plan of Care General Information Sukh is a 63-yr-old male has been seen for for nonverbal expressive aphasia. Most recently he was treated for a small a small CVA. Sukh is hemiparetic on the right side. He is nonverbal but understands all that is said to him. Mrs. Colvin did report though that at times Sukh will cough and choke during meals. In reviewing the records from his last hospitalization, there was no mention of difficulty with swallowing. A MBSS was completed on 12/16/19. The results indicated that Sukh's swallow was better at the start of the study and got progressively weaker as the study went on. He presented with a lot of pharyngeal pooling, which is difficult to control. Overall he demonstrated weak pharyngeal control within the pharynx: minimal pharyngeal constriction, no epiglottal inversion , increasing premature spillage into the pharynx and a lot of pharyngeal pooling. Visit Number 2 Plan of Care Dates 11/13/19- Patient Comments Sukh and his attended the therapy session . Chief Complaint(s) Swallowing Rehabilitation Expectation/ Reduction in risk for aspiration Goals: Parent/Guardian/Family Patient Knowledge/Awareness of Excellent TANK FARM ATTENDANT Role in Treatment Parent/Caretake Knowledge/ Excellent Awareness of TANK FARM ATTENDANT Role in Treatment Patient/Caregiver Compliance Fair with Home Exercise Program Short Term Goals Sukh and his will report less cough/choke with small, more frequent meals. Sukh and his will view the MBSS video in order to better understand his aspiration risk. Mold Finisher Goals 1. Sukh will be modified independent with execution of home exercise program (upper extremity and functional activities) with support of family utilizing provided written and visual instructions from therapist. Treatment Activities Reviewed the MBSS with Sukh and his . Anatomical landmarks were pointed out to them. Explanation and discussion of the MBSS was provided. Potential for aspiration risk was discussed as well. Therapeutic exercises were provided to Sukh and his . Written directions were also provided. Each exercise was demonstrated for Sukh and his . Sukh was able to perform each exercise during the session. He was instructed to do the exercises 2x/day. Aspiration precautions and a seating diagram was given to Sukh. Will follow up for 2-3 weeks to determine compliance with the exercises and answer questions that may arise. Rehabilitation Potential Fair Impairments Identified Dysphagia Assessment of Improvement Sukh was recently hospitalized for a fall and was discharged to home with home health services : OT, PT, ST. Discharge from outpatient service at this time Reviewed with Patient Goals,Home Exercise Program Patient Understanding Good Length of Therapy Recommended 2-4 Weeks Comment 12 weeks ongoing Treatment Frequency Once a Week Treatment Duration 45 Minutes Therapeutic Contents AAC Patient Recommendations Discharge from Speech Comment Consult w/ pt's ; limited therapist availability Electronically Signed by: SORAYA Galan 12/21/19 [id number] Please Sign and Return: I have reviewed this Plan of Care and certify that the skilled therapy services above are required to meet the patient?s needs. Physician Signature Date Printed Name and Credentials Clinical Instructor Signature Printed Name and Credentials
--- NOTE | 2020-01-11 12:09 | ST.OPTN ---
Visit Care Team Role Provider Type Delfino Epstein MD Attending Provider Physician Primary Care Provider Address: [address] [place] [address], [id number] C++ QUANT DEVELOPER Treatment Note C++ QUANT DEVELOPER Treatment Note Start: 12/29/19 12:16 Freq: Status: Active Protocol: Document 01/11/20 11:26 LNK (Rec: 01/11/20 12:08 LNK [email or web address]) Speech Pathology Treatment Note Session Time Visit Start Time 11:30 Visit Stop Time 12:00 Total Visit Minutes 30 Visit Information Visit Number 4 Plan of Care Dates 11/13/19- Setting Treatment Setting Outpatient Care Visit Type Note Type Treatment Note Next Note Type Next Note Type Treatment Note General Information General Information Sukh is a 63-yr-old male has been seen for ST for nonverbal expressive aphasia. Most recently he was treated for a small a small CVA. Sukh is hemiparetic on the right side. He is nonverbal but understands all that is said to him. Mrs. Colvin did report though that at times Sukh will cough and choke during meals. In reviewing the records from his last hospitalization, there was no mention of difficulty with swallowing. A MBSS was completed on 12/16/19. The results indicated that Thor s swallow was better at the start of the study and got progressively weaker as the study went on. He presented with a lot of pharyngeal pooling, which is difficult to control. Overall he demonstrated weak pharyngeal control within the pharynx: minimal pharyngeal constriction, no epiglottal inversion, increasing premature spillage into the pharynx and a lot of pharyngeal pooling. Subjective Identification Type Name Identification Reconciled With Intake Sheet Others Present Family Observations/Patient Presentation Sukh and his daughter attended the therapy session. Rehab Expectation/Goals: Parent/Guardian Reduction in risk for /Staff Weapons Officer Goals aspiration Patient Knowledge/Awareness of C++ QUANT DEVELOPER Role Excellent in Treatment Parent/Caretake Knowledge/Awareness of Excellent C++ QUANT DEVELOPER Role in Treatment Patient/Caregiver Compliance with Home Good Exercise Program Comment w/ family support Objective Short Term Goals Sukh and his will report less cough/choke with small, more frequent meals. Sukh and his will view the MBSS video in order to better understand his aspiration risk. Treatment Activities Reviewed the linguapharyngeal exercises with Sukh. His daughter remarked that he is doing the exercises daily. She also reported that Sukh is eating more frequent and smaller meals. He reported that he has not had a choking episode in the past 2 weeks. exercises. Sukh demonstrated the Shaker and rapid jaw opening exercises. he has been practicing them 2x/day. Assessment Patient Response to Treatment Good Rehab Potential Fair Assessment of Improvement Sukh has met all goals for swallowing therapy. He has demonstrated the correct use and form of his HEP exercises and he reports no choking episodes. His is preparing smaller, more frequent meals to prevent Sukh becoming fatigued during meals. Finally, Sukh, his and daughter all reviewed the MBSS video in order to understand Sukh's risk of aspiration. Will discharge from 1:1 ST at this time. Reviewed with Patient Goals,Home Exercise Program Patient/Caregiver Understanding Good Plan Amount of Therapy Recommended No Further Therapy Frequency of Treatment No Further Therapy
--- NOTE | 2020-01-11 12:12 | ST.OPDS ---
Visit Care Team Role Provider Type Delfino Epstein MD Attending Provider Physician Primary Care Provider Address: [address] [place] [address], [phone] ASSISTANT BOYS TRACK COACH Treatment Note ASSISTANT BOYS TRACK COACH Treatment Note Start: 12/29/19 12:16 Freq: Status: Active Protocol: Document 01/11/20 12:10 LNK (Rec: 01/11/20 12:12 LNK [id number]) Speech Pathology Treatment Note Setting Treatment Setting Outpatient Care Visit Type Note Type Discharge Summary General Information General Information Sukh is a 64-yr-old male has been seen for ST for nonverbal expressive aphasia. Most recently he was treated for a small a small CVA. Sukh is hemiparetic on the right side. He is nonverbal but understands all that is said to him. Mrs. Colvin did report though that at times Sukh will cough and choke during meals. In reviewing the records from his last hospitalization, there was no mention of difficulty with swallowing. A MBSS was completed on 12/16/19. The results indicated that Sukh' s swallow was better at the start of the study and got progressively weaker as the study went on. He presented with a lot of pharyngeal pooling, which is difficult to control. Overall he demonstrated weak pharyngeal control within the pharynx: minimal pharyngeal constriction, no epiglottal inversion, increasing premature spillage into the pharynx and a lot of pharyngeal pooling. Subjective Rehab Expectation/Goals: Parent/Guardian Reduction in risk for /Surfacer Operator Goals aspiration Patient Knowledge/Awareness of ASSISTANT BOYS TRACK COACH Role Excellent in Treatment Parent/Caretake Knowledge/Awareness of Excellent ASSISTANT BOYS TRACK COACH Role in Treatment Patient/Caregiver Compliance with Home Excellent Exercise Program Objective Short Term Goals Sukh and his will report less cough/choke with small, more frequent meals. Sukh and his will view the MBSS video in order to better understand his aspiration risk. Assessment Assessment of Improvement Sukh has met all goals for swallowing therapy. He has demonstrated the correct use and form of his HEP exercises and he reports no choking episodes. His is preparing smaller, more frequent meals to prevent Sukh becoming fatigued during meals. Finally, Sukh, his and daughter all reviewed the MBSS video in order to understand Sukh's risk of aspiration. Will discharge from 1:1 ST at this time. Reviewed with Patient Goals,Home Exercise Program Patient/Caregiver Understanding Good Plan Amount of Therapy Recommended No Further Therapy Frequency of Treatment No Further Therapy Therapy Recommendations Discharge to Home Exercise Program,Discharge from Speech Therapy
== END 2020-01-12 13:17 ==
LOC: SP 11:30
PROVIDERS: PCP Family Medicine; Visit Provider Family Medicine
DX: R53.1 Weakness (principal); I69.359 Hemiplegia and hemiparesis following cerebral infarction affecting unspecified side
CPT/HCPCS: 92526; 92610

== ENCOUNTER → 2020-04-20 15:43 | Outpatient (CLI) | payer OTHER, MEDICARE, MEDICAID, SELFPAY ==
[2019-09-02 12:00] VITALS: BMI 23.4
[2020-04-20 16:51] LABS: Add Manual Diff / Slide Review NO; Basophils Absolute Auto 0 /uL (0-100); Basophils Percent Auto 0.6 % (0-2); Eosinophils Absolute Auto 200 /uL (0-450); Eosinophils Percent Auto 4.2 % (2-4); Hematocrit 35.1 % (41-53); Hemoglobin 12.3 g/dL (13.5-17.5); Lymphocytes Absolute Auto 900 /uL (1100-4500); Lymphocytes Percent Auto 21.9 % (25-40); Mean Corpuscular Hemoglobin 31.5 PG (26-34); Mean Corpuscular Volume 89.8 fL (80-100); Monocytes Absolute Auto 600 /uL (0-900); Monocytes Percent Auto 14.7 % (3-14); Neutrophils Absolute Auto 2400 /uL (1500-7000); Neutrophils Percent Auto 58.6 % (50-75); Platelet Count 133 X10^3/uL (150-400); Red Blood Cell Count 3.91 X10^6/uL (4.5-5.9); White Blood Cell Count 4.1 X10^3/uL (4.5-11.0)
[2020-04-20 17:04] LABS: Hemoglobin A1C% w Est Avg Glu 6.4 % (4.0-6.0)
[2020-04-20 17:22] LABS: Creatinine Urine Random 84.5 mg/dL
[2020-04-20 17:27] LABS: Microalbumi Creatinin Ratio Ur 7.1 ug/mg CR (<30); Microalbumin Urine Random < 0.6 mg/dL (0-1.6)
[2020-04-20 18:05] LABS: Alanine Aminotransferase 16 IU/L (<50); Albumin 3.8 g/dL (3.5-5.0); Albumin Globulin Ratio 1.1 (1.0-2.8); Alkaline Phosphatase 64 U/L (38-126); Aspartate Aminotransferase 33 IU/L (17-59); BUN Creatinine Ratio 13.6 (6-22); Bilirubin Total 0.4 mg/dL (0.2-1.3); Blood Urea Nitrogen 12 mg/dL (9-20); Calcium 9.7 mg/dL (8.4-10.2); Carbon Dioxide 26 mmol/L (22-32); Chloride 100 mmol/L (98-107); Cholesterol 151 mg/dL (140-199); Estimated Glomerular Filt Rate > 60.0 mL/min (>60); Globulin 3.6 g/dL (1.7-4.1); Glucose 88 mg/dL (80-110); HDL Cholesterol 44 mg/dL (40-60); HEMOLYSIS < 15 (0-50); LDL Cholesterol Calculated 96 mg/dL (<100); Potassium 4.5 mmol/L (3.4-5.1); Sodium 136 mmol/L (137-145); Total Protein 7.4 g/dL (6.3-8.2); Triglycerides 57 mg/dL (35-150)
== END ==
PROVIDERS: PCP Family Medicine; Referring Provider Family Medicine; Visit Provider Family Medicine
DX: I63.9 Cerebral infarction, unspecified (principal); E78.5 Hyperlipidemia, unspecified
CPT/HCPCS: 36415; 80053; 80061; 82043; 82570; 83036; 85025

== ENCOUNTER 2020-10-03 12:30 | Outpatient (RCR) | payer OTHER, MEDICARE, MEDICAID, SELFPAY ==
[2019-09-02 12:00] VITALS: BMI 23.4
--- NOTE | 2019-11-11 15:04 | OT.OP.EVAL ---
Visit Care Team Role Provider Type Delfino Epstein MD Attending Provider Physician Primary Care Provider Specialty: [facility] Address: [address] [place] [address], [id number] Email: [email or web address] Occupational Therapy Initial Evaluation OT Outpatient Adult Evaluation Start: 11/11/19 14:25 Freq: Status: Active Protocol: Document 11/11/19 14:26 [facility] (Rec: 11/11/19 15:03 [facility] [email or web address]) General Information Visit Start Time 09:30 Visit Stop Time 10:15 Total Visit Minutes 45 Plan of Care Dates 11/11/19-02/04/20 Insurance Information Uniform Medical Treatment Setting Outpatient Care Note Type Initial Evaluation Referring Physician Dr. Epstein Identification Confirmed Yes: Photo ID Previous Therapy/Therapies Yes Therapy Pain Assessment When Pain Assessed pre- treat Pain Present Denied Pain Goals Objective Measurements Decreased active ROM of R UE; increased focus of patient on passive/assist from non- affected UE. Avg 3 pounds of force w/ R roll forger and 38 pounds of force w/ L roll forger w/ dynamometer roll forger II strength testing. -40 degrees passive elbow ext; -40 - 122 degrees passive elbow flex; 0-40 degrees passive sh ext; 0-40 degrees passive R sh flex; 0- 80 degrees passive R sh abd; 0 -5 degrees passive R forearm supination; WFL passive forearm pronation. Functional ADLS: Dependent w/ buttons; elastic shoe laces being utilized (however, still needs assist w/ R side d/t AFO); mod I w/ L sock; needs assist w/ R sock d/t it being a compression stockinette; assist w/ management of R sleeve/UB dressing and assist w/ LB dressing. Increased assist reported w/ g/h (e.g., donning deodarant on R side). PLOF based on 's report: able to manage UB dressing without assistance, including buttons utilizing 1 handed approach. Able to manage pants without assistance. able to apply deodarant without assist . Treatment Initiated HEP; recommended execution of scapular pinches to support scapular mobility and overall posture. Recommended positioning of UE out of typical randa pattern, including at knee and to the right of the body. Short Term Goals 1. Sukh will be able to execute UB dressing (e.g., donning shirts) without physical assistance on a daily basis based on caregiver's verbal report. 2. Sukh will be able to manage buttons of UB clothing items (e.g., button-up shirt) without physical assistance on a daily basis based on caregiver's verbal report. 3. Sukh will be able to apply deodarant (g/h) on daily basis without physical assistance based on caregiver' s verbal report. 4. Sukh will average 6 pounds of force with right roll forger dynamometer II strength testing to support non-verbal communication with brother via handshake. Care Home Goals 1. Sukh will be modified independent with execution of home exercise program (upper extremity and functional activities) with support of family utilizing provided written and visual instructions from therapist. Assessment/Plan Patient Response Good Rehabilitation Potential Fair Treatment Assessment Patient is a 63 year-old male referred to outpatient OT by PCP; patient was accompanied to initial eval by . 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 He was recently hospitalized 06/22/19 d/t 3 falls that occurred on the same day. He was d/c and then re-hospitalized in August 2019. He was identified to have low sodium. Post hospitalization patient had Home Health OT; Home Health HEP was designed as follows: shoulder flex; sh abd; sh hor abd; wrist ext; positioning of hand/wrist on towel; PROM of digits of L hand; passive elbow flexion/ext. HEP also includes writing of name and squeezing putty. Frequency is 1 x per day, 10 reps. PMH: significant for RA; blood clots; depression; diabetes mellitus I; falls; depression; heart attack; pacemaker; neuropathy; R elbow surgery. Goals: increase functional independence to PLOF; increase functional core strength; increase attention to R UE Evaluation findings: Ambulates w/ large base quad cane and AFO; decreased trunk/ core strength; decreased orientation to midline; impaired posture; neglect of right side; increased tone of UE; decreased active ROM of UE ; decreased roll forger strength; impaired cognition; fatigue; decreased endurance; decreased functional independence; impaired balance. Outpatient OT is recommended at this time to maximize patient's functional independence relative to PLOF and address positioning of UE, as well as active range of motion/roll forger strength to support functional dressing, et cetera. Home Exercise Program Please refer to treatment section of note for specific details. Reviewed with Patient Goals,Home Exercise Program Comment 12 weeks Treatment Frequency Once a Week Therapeutic Contents Active Range of Motion, Adaptive Equipment Education, Client Education,Cognitive Skills Development,Functional Activities,Home Exercise Program,Joint Protection, Manual Therapy,Education, Neurodevelopment Treatment, Neuromuscular Re-Education, Self-Care,Stretching/ Flexibility Activities, Therapeutic Activities, Therapeutic Exercises, Modalities,Sensory Re- education Types of Modalities Contrast Bath,E-Stim, Functional Stimulation (FES), Ice Massage,T.E.N. Stimulation ,TENS Placement/Application, Ultrasound,Other Additional Types of Modalities Paraffin bath/Heat Patient Instruction Home Exercise Program,Plan of Care,Questions/Concerns,Other
--- NOTE | 2019-11-26 12:08 | OT.OP.TRT ---
Visit Care Team Role Provider Type Delfino Epstein MD Attending Provider Physician Primary Care Provider Specialty: Family Practice Address: [address] [place] [address], [id number] Email: [email or web address] Occupational Therapy Treatment Note OT Outpatient Treatment Note - Adult Start: 11/11/19 14:25 Freq: Status: Active Protocol: Document 11/26/19 11:42 AMS (Rec: 11/26/19 12:07 AMS [email or web address]) OT Outpatient Adult Treatment Note Session Time Visit Start Time 09:35 Visit Stop Time 10:20 Total Visit Minutes 45 Visit Information Plan of Care Dates 11/11/19-02/04/20 Insurance Information Uniform Medical Setting Treatment Setting Outpatient Care Visit Type Note Type Treatment Note General Information General Information Patient is a 63 year-old male referred to outpatient OT by PCP; patient was accompanied to initial eval by . 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 Patient has been seen in outpatient clinic at [facility] for OT, PT, and IMPORTER OR EXPORTER. He was recently hospitalized 06/22/19 d/t 3 falls that occurred on the same day. He was d/c and then re-hospitalized in August 2019. He was identified to have low sodium. Post hospitalization patient had Home Health OT; Home Health HEP was designed as follows: shoulder flex; sh abd; sh hor abd; wrist ext; positioning of hand/wrist on towel; PROM of digits of L hand; passive elbow flexion/ext. HEP also includes writing of name and squeezing putty. Frequency is 1 x per day, 10 reps. PMH: significant for RA; blood clots; depression; diabetes mellitus I; falls; depression; heart attack; pacemaker; neuropathy; R elbow surgery. - Subjective Identification Type Name,ID Wristband Observations She almost took him to the ER last week because he wasn't feeling well due to the snow and the poor driving conditions per daughter-in- law in re: Sukh's Diele . Goals verbalized by for Sukh: increase functional independence to PLOF; increase functional core strength; increase attention to R UE Patient/Caregiver Compliance with Home Good Exercise Program Comments w/ family support - Objective Objective Measurements Sukh was accompanied by his [id number] and his granddaughter. Please refer to below for progress. Short Term Goals 1. Sukh will be able to execute UB dressing (e.g., donning shirts) without physical assistance on a daily basis based on caregiver's verbal report. 2. Sukh will be able to manage buttons of UB clothing items (e.g., button-up shirt) without physical assistance on a daily basis based on caregiver's verbal report. 3. Sukh will be able to apply deodarant (g/h) on daily basis without physical assistance based on caregiver' s verbal report. 4. Sukh will average 6 pounds of force with right product demonstrator dynamometer II strength testing to support non-verbal communication with brother via handshake. Firepot Operator And Tender Goals 1. Sukh will be modified independent with execution of home exercise program (upper extremity and functional activities) with support of family utilizing provided written and visual instructions from therapist. - Treatment 5 Descriptor Bimanual activities. Ball with ROM UE exercises seated. 1 x 10 each. Sh hor abd/add. Sh flex. Complexity Upgraded 4 Descriptor Orientation to midline. Weight shifting. Trunk/core strengthening. 1 x 10 each exercise. Trunk flex. Trunk ext maintaining head/neck in neutral. Lat trunk flex/ext. Seated circles CW and CCW. Complexity Upgraded 3 Descriptor ROM of shoulder. PROM of sh completed by therapist. 2 Descriptor Tone Management. Seated WB. Trunk flex w/ WB onto hand positioned at edge of chair. Use of ball to facilitate opening of up hand/digits. 1 Descriptor HEP/POC. Discussed use of ball to facilitate opening up of hand w/ B UE exercises previously recommended by OT. Requested follow-up w/ d/t presenting sh subluxation w/ anterior shift in re: c/o pain/discomfort of the shoulder. Discussed return to shoulder sling; concerns verbalized effectiveness of sling only in standing (given that patient spends more time in sitting). Exercises 9 Descriptor Orientation to midline WB Isometric work Sitting/standing Side Both Body Position Standing Sets 1 Repetitions 10 Complexity No Change 8 Descriptor Neck ext Neck rotation Lateral neck flex/ext Side Both Body Position Standing Sets 2 Repetitions 5-8 sec hold Modifications Required Yes Complexity No Change 7 Descriptor Shoulder - PROM Flexion/extension ER Hor abd Abd Side Right Body Position Sitting Modifications Required Yes Complexity No Change 6 Descriptor Shoulder shrugs. Backwards sh shrugs. Side Both Body Position Sitting Sets 1 Repetitions 10 5 Descriptor Elbow AROM. Elbow flex. Elbow ext. Side Right Body Position Sitting Sets 1 Repetitions 10 4 Descriptor Hand squeezes. Side Right Body Position Sitting Sets 1 Repetitions 10 3 Descriptor Standing: Trunk rotation Lat trunk ext/flex Sitting: Trunk ext/neck ext Trunk ext L --> R shift back to center - 1 leg TherBall sitting Side Both Sets 1 Repetitions 10 Modifications Required Yes Complexity No Change 2 Descriptor Trunk stretch Ball - not completed 06/02/18 Side Both Body Position Sitting Sets 1 Repetitions 5 Modifications Required Yes Complexity Upgraded 1 Descriptor Scapular pinches Side Both Body Position Sitting Sets 1 Repetitions 10 - Assessment Patient Response to Treatment Good Rehab Potential Fair Assessment of Improvement R sh subluxation w/ anterior shift noted; current sling effective in standing only per family report. Request follow -up w/ in re: if Sukh is experiencing any pain in the R shoulder. Improved motor planning of R UE noted compared to initial eval (able to execute sh shrugs). Decreased activity tolerance. Decreased orientation to midline. Decreased trunk/core strength. Recommended activities: ROM; trunk/core; follow-up re: possibilities for R UE brace; eval product demonstrator strength Home Exercise Program Please refer to treatment section of note for specific details. - Plan Therapy Recommendations Continue with Current Program, Advance per Rehabilitation Protocol Additional Therapy Recommendations Consult w/ other therapies
--- NOTE | 2019-12-10 15:30 | OT.OP.TRT ---
Visit Care Team Role Provider Type Delfino Epstein MD Attending Provider Physician Primary Care Provider Specialty: Family Practice Address: [address] [place] [address], [id number] Email: [email or web address] Occupational Therapy Treatment Note OT Outpatient Treatment Note - Adult Start: 11/11/19 14:25 Freq: Status: Active Protocol: Document 12/10/19 15:30 AMS (Rec: 12/11/19 12:05 AMS [email or web address]) OT Outpatient Adult Treatment Note Session Time Visit Start Time 09:30 Visit Stop Time 10:15 Total Visit Minutes 45 Visit Information Plan of Care Dates 11/11/19-02/04/20 Insurance Information Uniform Medical Setting Treatment Setting Outpatient Care Visit Type Note Type Treatment Note General Information General Information Patient is a 63 year-old male referred to outpatient OT by PCP; patient was accompanied to initial eval by . 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 Patient has been seen in outpatient clinic at [facility] for OT, PT, and SERVICE ORDER DISPATCHER. He was recently hospitalized 06/22/19 d/t 3 falls that occurred on the same day. He was d/c and then re-hospitalized in August 2019. He was identified to have low sodium. Post hospitalization patient had Home Health OT; Home Health HEP was designed as follows: shoulder flex; sh abd; sh hor abd; wrist ext; positioning of hand/wrist on towel; PROM of digits of L hand; passive elbow flexion/ext. HEP also includes writing of name and squeezing putty. Frequency is 1 x per day, 10 reps. PMH: significant for RA; blood clots; depression; diabetes mellitus I; falls; depression; heart attack; pacemaker; neuropathy; R elbow surgery. - Subjective Identification Type Name,ID Wristband Observations Everyone in the house was sick except him and the younger baby. Goals verbalized by for Sukh: increase functional independence to PLOF; increase functional core strength; increase attention to R UE Patient/Caregiver Compliance with Home Good Exercise Program Comments w/ family support - Objective Objective Measurements Sukh was accompanied by his [id number] and granddaughter. Please refer to below for progress. Short Term Goals 1. Sukh will be able to execute UB dressing (e.g., donning shirts) without physical assistance on a daily basis based on caregiver's verbal report. 2. Sukh will be able to manage buttons of UB clothing items (e.g., button-up shirt) without physical assistance on a daily basis based on caregiver's verbal report. 3. Sukh will be able to apply deodarant (g/h) on daily basis without physical assistance based on caregiver' s verbal report. 4. Sukh will average 6 pounds of force with right rn hedis dynamometer II strength testing to support non-verbal communication with brother via handshake. Chcf Goals 1. Sukh will be modified independent with execution of home exercise program (upper extremity and functional activities) with support of family utilizing provided written and visual instructions from therapist. - Treatment 5 Descriptor Bimanual activities. Ball. Seated row. 1x10. Cane. Circumduction. Sh hor abd/add. Sh flex. 1x10. Complexity Upgraded 4 Descriptor Orientation to midline. Seated balance disk in chair. L <-> R lean. Trunk ext. Trunk rot. Trunk flex <->upright sitting. Balloon L hand. 1 x 10. Seated circles. CW, CCW. 1 x 10. Complexity Upgraded 3 Descriptor ROM of shoulder. PROM of sh completed by therapist. Sh flex, sh abd, ER , hor abd w/ ER. 2 Descriptor Tone Management. Seated WB. Trunk flex w/ WB onto hand positioned at edge of chair. Use of ball to facilitate opening of up hand/digits. 1 Descriptor HEP/POC. Discussed use of ball to facilitate opening up of hand w/ B UE exercises previously recommended by OT. Requested follow-up w/ d/t presenting sh subluxation w/ anterior shift in re: c/o pain/discomfort of the shoulder. Discussed return to shoulder sling; concerns verbalized effectiveness of sling only in standing (given that patient spends more time in sitting). Exercises 6 Descriptor Shoulder shrugs. Backwards sh shrugs. Side Both Body Position Sitting Sets 1 Repetitions 10 5 Descriptor Elbow AROM. Elbow flex. Elbow ext. Side Right Body Position Sitting Sets 1 Repetitions 10 4 Descriptor Hand squeezes. Foam block squeezes. Side Right Body Position Sitting Sets 1 Repetitions 10 Complexity Upgraded 1 Descriptor Scapular pinches Side Both Body Position Sitting Sets 1 Repetitions 10 - Assessment Patient Response to Treatment Good Rehab Potential Fair Assessment of Improvement Improved activity tolerance compared to previous treatment session; improving trunk/core engagement/posture with sitting. Recommend continued outpatient OT is recommended at this time to maximize patient's functional independence relative to PLOF and address positioning of UE, as well as active range of motion/rn hedis strength to support functional dressing, et cetera. Recommended activities: ROM; trunk/core Home Exercise Program Please refer to treatment section of note for specific details. - Plan Therapy Recommendations Continue with Current Program, Advance per Rehabilitation Protocol Additional Therapy Recommendations Consult w/ other therapies
--- NOTE | 2019-12-24 15:30 | OT.OP.TRT ---
Visit Care Team Role Provider Type Delfino Epstein MD Attending Provider Physician Primary Care Provider Specialty: Family Practice Address: [address] [place] [address], [id number] Email: [email or web address] Occupational Therapy Treatment Note OT Outpatient Treatment Note - Adult Start: 11/11/19 14:25 Freq: Status: Active Protocol: Document 12/24/19 15:30 AMS (Rec: 12/28/19 12:22 AMS [email or web address]) OT Outpatient Adult Treatment Note Session Time Visit Start Time 09:30 Visit Stop Time 10:15 Total Visit Minutes 45 Visit Information Plan of Care Dates 11/11/19-02/04/20 Insurance Information Uniform Medical Setting Treatment Setting Outpatient Care Visit Type Note Type Treatment Note General Information General Information Patient is a 63 year-old male referred to outpatient OT by PCP; patient was accompanied to initial eval by . 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 Patient has been seen in outpatient clinic at 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 He was recently hospitalized 06/22/19 d/t 3 falls that occurred on the same day. He was d/c and then re-hospitalized in August 2019. He was identified to have low sodium. Post hospitalization patient had Home Health OT; Home Health HEP was designed as follows: shoulder flex; sh abd; sh hor abd; wrist ext; positioning of hand/wrist on towel; PROM of digits of L hand; passive elbow flexion/ext. HEP also includes writing of name and squeezing putty. Frequency is 1 x per day, 10 reps. PMH: significant for RA; blood clots; depression; diabetes mellitus I; falls; depression; heart attack; pacemaker; neuropathy; R elbow surgery. - Subjective Identification Type Name Identification Reconciled With Intake Sheet Others Present Family Observations He hasn't been as active since everyone in the house has been fighting something. Goals verbalized by for Sukh: increase functional independence to PLOF; increase functional core strength; increase attention to R UE Patient/Caregiver Compliance with Home Good Exercise Program Comments w/ family support - Objective Objective Measurements Sukh was accompanied by his [id number] and granddaughter. Please refer to below for progress. Short Term Goals 1. Sukh will be able to execute UB dressing (e.g., donning shirts) without physical assistance on a daily basis based on caregiver's verbal report. 2. Sukh will be able to manage buttons of UB clothing items (e.g., button-up shirt) without physical assistance on a daily basis based on caregiver's verbal report. 3. Sukh will be able to apply deodarant (g/h) on daily basis without physical assistance based on caregiver' s verbal report. 4. Sukh will average 6 pounds of force with right it support technician dynamometer II strength testing to support non-verbal communication with brother via handshake. Weblogic Administrator Goals 1. Sukh will be modified independent with execution of home exercise program (upper extremity and functional activities) with support of family utilizing provided written and visual instructions from therapist. - Treatment 5 Descriptor Bimanual activities. Ball. Seated row. 1x10. Cane. Circumduction. Sh hor abd/add. Sh flex. 1x10. 4 Descriptor Orientation to midline. Seated balance disk in chair. L <-> R lean. Trunk ext. Trunk rot. Trunk flex <->upright sitting. Balloon L hand. 1 x 10. Seated circles. CW, CCW. 1 x 10. 3 Descriptor ROM of shoulder. PROM of sh completed by therapist. Sh flex, sh abd, ER , hor abd w/ ER. 2 Descriptor Tone Management. Seated WB. Trunk flex w/ WB onto hand positioned at edge of chair. Use of ball to facilitate opening of up hand/digits. 1 Descriptor HEP/POC. Discussed use of ball to facilitate opening up of hand w/ B UE exercises previously recommended by OT. Requested follow-up w/ d/t presenting sh subluxation w/ anterior shift in re: c/o pain/discomfort of the shoulder. Discussed return to shoulder sling; concerns verbalized effectiveness of sling only in standing (given that patient spends more time in sitting). Exercises 6 Descriptor Shoulder shrugs. Backwards sh shrugs. Side Both Body Position Sitting Sets 1 Repetitions 10 5 Descriptor Elbow AROM. Elbow flex. Elbow ext. Side Right Body Position Sitting Sets 1 Repetitions 10 4 Descriptor Hand squeezes. Foam block squeezes. 500 gm weighted ball ( sustained hold x 2-5 seconds in length) Side Right Body Position Sitting Sets 1 Repetitions 10 Complexity Upgraded 1 Descriptor Scapular pinches Side Both Body Position Sitting Sets 1 Repetitions 10 - Assessment Patient Response to Treatment Good Rehab Potential Fair Assessment of Improvement Decreased engagement of trunk/ core musculature w/ increased leaning back in chair compared to previous treatment session ; however, improved since time of initial evaluation. Improving hand/digit strength/ sustained it support technician; was able to initiate sustained it support technician w/ weighted ball. Recommend exploring options for R UE given that the family does not have a sling/brace appropriate for wearing while seated (to address R sh subluxation). Recommend continued outpatient OT is recommended at this time to maximize patient's functional independence relative to PLOF and address positioning of UE, as well as active range of motion/it support technician strength to support functional dressing, et cetera. Recommended activities: ROM; trunk/core; brace vs kinesiotape for R sh ( appropriate for sitting) Home Exercise Program Please refer to treatment section of note for specific details. Reviewed with Patient/Caregiver Goals,Home Exercise Program Patient/Caregiver Understanding Good - Plan Therapy Recommendations Continue with Current Program, Advance per Rehabilitation Protocol Additional Therapy Recommendations Consult w/ other therapies
--- NOTE | 2019-12-31 12:07 | OT.OP.TRT ---
Visit Care Team Role Provider Type Delfino Epstein MD Attending Provider Physician Primary Care Provider Specialty: Family Practice Address: [address] [place] [address], [id number] Email: [email or web address] Occupational Therapy Treatment Note OT Outpatient Treatment Note - Adult Start: 11/11/19 14:25 Freq: Status: Active Protocol: Document 12/31/19 11:40 AMS (Rec: 12/31/19 12:06 [facility] [email or web address]) OT Outpatient Adult Treatment Note Session Time Visit Start Time 09:30 Visit Stop Time 10:15 Total Visit Minutes 45 Visit Information Plan of Care Dates 11/11/19-02/04/20 Insurance Information Uniform Medical Setting Treatment Setting Outpatient Care Visit Type Note Type Treatment Note General Information General Information Sukh is a 63-yr-old male has been seen for ST for nonverbal expressive aphasia. Most recently he was treated for a small a small CVA. Sukh is hemiparetic on the right side. He is nonverbal but ubderstands all that is said to him. Mrs. Colvin did report though that at times Sukh will cough and choke during meals. In reviewing the records from his last hospitalization, there was no mention of difficulty with swallowing. A MBSS was completed on 12/16/19. The results indicated that Thor s swallow was better at the start of the study and got progressively weaker as the study went on. He presented with a lot of pharyngeal pooling, which is difficult to control. Overall he demonstrated weak pharyngeal control within the pharynx: minimal pharyngeal constriction, no epiglottal inversion, increasing premature spillage into the pharynx and a lot of pharyngeal pooling. - Subjective Identification Type Name Identification Reconciled With Intake Sheet Others Present Family Observations He just needs increased time to do it. Goals verbalized by for Sukh: increase functional independence to PLOF; increase functional core strength; increase attention to R UE Patient/Caregiver Compliance with Home Good Exercise Program Comments w/ family support - Objective Objective Measurements Please refer to below for progress towards meeting established OT goals. Short Term Goals 1. Sukh will be able to apply deodarant (g/h) on daily basis without physical assistance based on caregiver' s verbal report. 12/31/19= 50% met 2. Sukh will average 6 pounds of force with right technical [employer] dynamometer II strength testing to support non-verbal communication with brother via handshake. GOALS MET Execution of UB dressing (e.g. , donning shirts) w/ increased time on daily basis per family report. *MET 12/31/19 Management of UB buttons w/ increased time on daily basis per family report. *MET [facility] Goals 1. Sukh will be modified independent with execution of home exercise program (upper extremity and functional activities) with support of family utilizing provided written and visual instructions from therapist. - Treatment 5 Descriptor Bimanual activities. Ball. Seated row. 1x10. 4 Descriptor Orientation to midline. Seated balance disk in chair ( yellow disk). L <-> R lean. Trunk ext. Trunk rot. Trunk flex <->upright sitting. Balloon L hand. 1 x 10. 3 Descriptor ROM of shoulder. PROM of sh completed by therapist. Sh flex, sh abd, ER , hor abd w/ ER. 2 Descriptor Tone Management. Seated WB. Trunk flex w/ WB onto hand positioned at edge of chair. Use of ball to facilitate opening of up hand/digits. 1 Descriptor HEP/POC. Discussed use of ball to facilitate opening up of hand w/ B UE exercises previously recommended by OT. Requested follow-up w/ d/t presenting sh subluxation w/ anterior shift in re: c/o pain/discomfort of the shoulder. Discussed return to shoulder sling; concerns verbalized effectiveness of sling only in standing (given that patient spends more time in sitting). Exercises 6 Descriptor Shoulder shrugs. Backwards sh shrugs. Side Both Body Position Sitting Sets 1 Repetitions 10 5 Descriptor Elbow AROM. Elbow flex. Elbow ext. Side Right Body Position Sitting Sets 1 Repetitions 10 4 Descriptor Director Of Services strengthening exercises. Foam block squeezes. 1x10. 500 gm weighted ball ( sustained hold x 2-5 seconds in length). 1x10. Cane pull. 1x10. (therapist providing resistance). Side Right Body Position Sitting 1 Descriptor Scapular pinches Side Both Body Position Sitting Sets 1 Repetitions 10 - Assessment Patient Response to Treatment Good Rehab Potential Fair Assessment of Improvement Increased engagement of trunk/ core w/ use of yellow balance disk; recommend repeating at time of next treatment session . Recommend use of chair w/ bilateral arm rests. Improving functional independence; this is evidenced by Sukh meeting goals in these areas. Recommend continued outpatient OT is recommended at this time to maximize patient's functional independence relative to PLOF and address positioning of UE, as well as active range of motion/technical manager [employer] strength to support functional dressing, et cetera. In process of contacting [facility] DME provider; pursuing alt to GiveMohr sling d/t inability to wear sling while seated. Recommend pursuing ShoulderLift or similar sling; patient and family education re: importance of removing sling and engagement in movement (d/ t risk of leading to increased stiffness w/ sling). Patient and family denied questions. Recommended activities: ROM; trunk/core Home Exercise Program Please refer to treatment section of note for specific details. Reviewed with Patient/Caregiver Goals,Home Exercise Program Patient/Caregiver Understanding Good - Plan Therapy Recommendations Continue with Current Program, Advance per Rehabilitation Protocol Additional Therapy Recommendations Consult w/ other therapies
--- NOTE | 2020-01-07 15:30 | OT.OP.TRT ---
Visit Care Team Role Provider Type Delfino Epstein MD Attending Provider Physician Primary Care Provider Specialty: Family Practice Address: [address] [place] [address], [id number] Email: [email or web address] Occupational Therapy Treatment Note OT Outpatient Treatment Note - Adult Start: 11/11/19 14:25 Freq: Status: Active Protocol: Document 01/07/20 15:30 AMS (Rec: 01/11/20 12:44 AMS [email or web address]) OT Outpatient Adult Treatment Note Session Time Visit Start Time 09:30 Visit Stop Time 10:15 Total Visit Minutes 45 Visit Information Plan of Care Dates 11/11/19-02/04/20 Insurance Information Uniform Medical Setting Treatment Setting Outpatient Care Visit Type Note Type Treatment Note General Information General Information Sukh is a 64-yr-old male has been seen for ST for nonverbal expressive aphasia. Most recently he was treated for a small a small CVA. Sukh is hemiparetic on the right side. He is nonverbal but ubderstands all that is said to him. Mrs. Colvin did report though that at times Sukh will cough and choke during meals. In reviewing the records from his last hospitalization, there was no mention of difficulty with swallowing. A MBSS was completed on 12/16/19. The results indicated that Thor s swallow was better at the start of the study and got progressively weaker as the study went on. He presented with a lot of pharyngeal pooling, which is difficult to control. Overall he demonstrated weak pharyngeal control within the pharynx: minimal pharyngeal constriction, no epiglottal inversion, increasing premature spillage into the pharynx and a lot of pharyngeal pooling. - Subjective Identification Type Name Identification Reconciled With Medical Record Observations Sukh was accompanied by daughter and granddaughter. Felicity is out of town right now . I did notice that he had a hard time managing his seat belt with his good arm this morning. Goals verbalized by for Sukh: increase functional independence to PLOF; increase functional core strength; increase attention to R UE Patient/Caregiver Compliance with Home Good Exercise Program Comments w/ family support - Objective Objective Measurements Please refer to below for progress towards meeting established OT goals. Short Term Goals 1. Sukh will be able to apply deodarant (g/h) on daily basis without physical assistance based on caregiver' s verbal report. 12/31/19= 50% met 2. Sukh will average 6 pounds of force with right balance and hairspring assembler dynamometer II strength testing to support non-verbal communication with brother via handshake. GOALS MET Execution of UB dressing (e.g. , donning shirts) w/ increased time on daily basis per family report. *MET 12/31/19 Management of UB buttons w/ increased time on daily basis per family report. *MET Senior Living Goals 1. Sukh will be modified independent with execution of home exercise program (upper extremity and functional activities) with support of family utilizing provided written and visual instructions from therapist. - Treatment 5 Descriptor Bimanual activities. Ball. Seated row. 1x10. 4 Descriptor Orientation to midline. Seated balance disk at EOM. L <-> R lean. Trunk ext. Trunk rot. Trunk flex <->upright sitting. 1 x 10. Repeated with blue balance disk at EOM. 3 Descriptor ROM of shoulder. PROM of sh completed by therapist. Sh flex, sh abd, ER , hor abd w/ ER. 2 Descriptor Tone Management. Seated WB. Trunk flex w/ WB onto hand positioned at edge of chair. Use of ball to facilitate opening of up hand/digits. 1 Descriptor HEP/POC. Informed that outpatient clinic is waiting for call back from DME in re: alternative to [employer] sling. Inquired about arthritis given presentation on this treatment date. Exercises 6 Descriptor Shoulder shrugs. Backwards sh shrugs. Side Both Body Position Sitting Sets 1 Repetitions 10 5 Descriptor Elbow AROM. Elbow flex. Elbow ext. Side Right Body Position Sitting Sets 1 Repetitions 10 4 Descriptor Refractory Grinder Operator strengthening exercises. Foam block squeezes. 1x10. 500 gm weighted ball ( sustained hold x 2-5 seconds in length). 1x10. Cane pull. 1x10. (therapist providing resistance). Side Right Body Position Sitting 1 Descriptor Scapular pinches Side Both Body Position Sitting Sets 1 Repetitions 10 - Assessment Patient Response to Treatment Good Rehab Potential Fair Assessment of Improvement Transitioned to execution of trunk/core exercises at EOM; nonverbal signs of pain/ discomfort noted on this date. Daughter to follow-up re: need for arthritic medication given presentation in car w/ discomfort in shoulder on ' good side'. Call-out of hospital affiliated DME provider re: alt [employer] sling ; will need to follow-up. Recommend continued outpatient OT is recommended at this time to maximize patient's functional independence relative to PLOF and address positioning of UE, as well as active range of motion/balance and hairspring assembler strength to support functional dressing, et cetera. Recommended activities: ROM; trunk/core Home Exercise Program Please refer to treatment section of note for specific details. Reviewed with Patient/Caregiver Goals,Home Exercise Program Patient/Caregiver Understanding Good - Plan Therapy Recommendations Continue with Current Program, Advance per Rehabilitation Protocol Additional Therapy Recommendations Consult w/ other therapies
--- NOTE | 2020-01-14 15:30 | OT.OP.TRT ---
Visit Care Team Role Provider Type Delfino Epstein MD Attending Provider Physician Primary Care Provider Specialty: Family Practice Address: [address] [place] [address], [id number] Email: [email or web address] Occupational Therapy Treatment Note OT Outpatient Treatment Note - Adult Start: 11/11/19 14:25 Freq: Status: Active Protocol: Document 01/14/20 15:30 AMS (Rec: 01/18/20 09:27 AMS [email or web address]) OT Outpatient Adult Treatment Note Session Time Visit Start Time 09:30 Visit Stop Time 10:18 Total Visit Minutes 48 Visit Information Plan of Care Dates 11/11/19-02/04/20 Insurance Information Uniform Medical Setting Treatment Setting Outpatient Care Visit Type Note Type Treatment Note General Information General Information Patient is a 63 year-old male referred to outpatient OT by PCP; patient was accompanied to initial eval by . 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 He was recently hospitalized 06/22/19 d/t 3 falls that occurred on the same day. He was d/c and then re-hospitalized in August 2019. He was identified to have low sodium. Post hospitalization patient had Home Health OT; Home Health HEP was designed as follows: shoulder flex; sh abd; sh hor abd; wrist ext; positioning of hand/wrist on towel; PROM of digits of L hand; passive elbow flexion/ext. HEP also includes writing of name and squeezing putty. Frequency is 1 x per day, 10 reps. PMH: significant for RA; blood clots; depression; diabetes mellitus I; falls; depression; heart attack; pacemaker; neuropathy; R elbow surgery. - Subjective Identification Type Name Identification Reconciled With Medical Record Others Present Family Observations Sukh was accompanied by daughter and granddaughter. He was late with his arthritis medication. Goals verbalized by for Sukh: increase functional independence to PLOF; increase functional core strength; increase attention to R UE Patient/Caregiver Compliance with Home Good Exercise Program Comments w/ family support - Objective Objective Measurements Please refer to below for progress towards meeting established OT goals. Short Term Goals 1. Sukh will be able to apply deodarant (g/h) on daily basis without physical assistance based on caregiver' s verbal report. 01/14/20= 50% met 2. Sukh will average 6.0 pounds of force with right air analysis engineering technician dynamometer II strength testing to support non-verbal communication with brother via handshake. 01/14/20= 25% met GOALS MET Execution of UB dressing (e.g. , donning shirts) w/ increased time on daily basis per family report. *MET 12/31/19 Management of UB buttons w/ increased time on daily basis per family report. *MET Detention Goals 1. Sukh will be modified independent with execution of home exercise program (upper extremity and functional activities) with support of family utilizing provided written and visual instructions from therapist. = 50% met - Treatment 5 Descriptor Bimanual activities. Ball. Seated row. 1x10. 4 Descriptor Orientation to midline. Seated orientation to midline/ functional weight shifting. L <-> R. Trunk ext. Trunk rot. Trunk flex. 1x10. All exercises repeated with blue balance disk at EOM. 1x10. 3 Descriptor ROM of shoulder. PROM of sh completed by therapist. Sh flex, sh abd, ER , hor abd w/ ER. 2 Descriptor Tone Management. Seated WB. Trunk flex w/ WB onto hand positioned at edge of chair. Use of ball to facilitate opening of up hand/digits. 1 Descriptor HEP/POC. Will pursue appropriate paperwork to obtain alternate sling to [employer] to address sh subluxation in sitting/ positioning of the UE. Discussed environmental modifications to minimize/ prevent further pec major contracture which would impact Sukh's functional abilities /ability to caregivers to assist him day-to-day life. Instructed in supine positioning and reviewed importance of avoidance of laying in sidelying on R shoulder w/ family and Sukh. Daughter and granddaughter present throughout treatment session. Exercises 6 Descriptor Shoulder shrugs. Backwards sh shrugs. Side Both Body Position Sitting Sets 1 Repetitions 10 5 Descriptor Elbow AROM. Elbow flex. Elbow ext. Side Right Body Position Sitting Sets 1 Repetitions 10 4 Descriptor Darklight Inspector strengthening exercises. Foam block squeezes. 1x10. 500 gm weighted ball ( sustained hold x 2-5 seconds in length). 1x10. Cane pull. 1x10. (therapist providing resistance). Side Right Body Position Sitting 1 Descriptor Scapular pinches Side Both Body Position Sitting Sets 1 Repetitions 10 - Assessment Patient Response to Treatment Good Rehab Potential Fair Assessment of Improvement Education completed re: use of positioning; see treatment section of note for additional details. Improved ability to sustain grasp w/ 500 gram ball w/ foam exercise completed prior. Decreased orientation to midline/avoidance noted w/ weight shifting without availability of arm supports w / and without addition of balance disk. Will need to follow-up w/ DME provider re: appropriate paperwork needed for alt [employer] sling. Recommend continued outpatient OT is recommended at this time to maximize patient's functional independence relative to PLOF and address positioning of UE, as well as active range of motion/air analysis engineering technician strength to support functional dressing, et cetera. Recommended activities: ROM; trunk/core Home Exercise Program Please refer to treatment section of note for specific details. Reviewed with Patient/Caregiver Goals,Home Exercise Program Patient/Caregiver Understanding Good - Plan Therapy Recommendations Continue with Current Program, Advance per Rehabilitation Protocol Additional Therapy Recommendations Consult w/ other therapies
--- NOTE | 2020-01-20 13:11 | OT.OP.TRT ---
Visit Care Team Role Provider Type Delfino Epstein MD Attending Provider Physician Primary Care Provider Specialty: Family Practice Address: [address] [place] [address], [id number] Email: [email or web address] Occupational Therapy Treatment Note OT Outpatient Treatment Note - Adult Start: 11/11/19 14:25 Freq: Status: Active Protocol: Document 01/20/20 13:01 AMS (Rec: 01/20/20 13:11 AMS [email or web address]) OT Outpatient Adult Treatment Note Session Time Visit Start Time 09:40 Visit Stop Time 10:25 Total Visit Minutes 45 Visit Information Plan of Care Dates 11/11/19-02/04/20 Insurance Information Uniform Medical Setting Treatment Setting Outpatient Care Visit Type Note Type Treatment Note General Information General Information Patient is a 63 year-old male referred to outpatient OT by PCP; patient was accompanied to initial eval by . 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 He was recently hospitalized 06/22/19 d/t 3 falls that occurred on the same day. He was d/c and then re-hospitalized in August 2019. He was identified to have low sodium. Post hospitalization patient had Home Health OT; Home Health HEP was designed as follows: shoulder flex; sh abd; sh hor abd; wrist ext; positioning of hand/wrist on towel; PROM of digits of L hand; passive elbow flexion/ext. HEP also includes writing of name and squeezing putty. Frequency is 1 x per day, 10 reps. PMH: significant for RA; blood clots; depression; diabetes mellitus I; falls; depression; heart attack; pacemaker; neuropathy; R elbow surgery. - Subjective Identification Type Name Identification Reconciled With Medical Record Others Present Family Observations Sukh was accompanied to OT by his , Felicity. Treatment session started late/ended later d/t Sukh's need to use restroom and therapist's desire to 'make up time'. Felicity denied any new changes. Daughter = Geoff; = Felicity Goals verbalized by for Sukh: increase functional independence to PLOF; increase functional core strength; increase attention to R UE Patient/Caregiver Compliance with Home Good Exercise Program Comments w/ family support - Objective Objective Measurements Please refer to below for progress towards meeting established OT goals. Short Term Goals 1. Sukh will be able to apply deodarant (g/h) on daily basis without physical assistance based on caregiver' s verbal report. 01/14/20= 50% met 2. Sukh will average 6.0 pounds of force with right manager part dynamometer II strength testing to support non-verbal communication with brother via handshake. 01/14/20= 25% met GOALS MET Execution of UB dressing (e.g. , donning shirts) w/ increased time on daily basis per family report. *MET 12/31/19 Management of UB buttons w/ increased time on daily basis per family report. *MET Technical Writer And Editor Goals 1. Sukh will be modified independent with execution of home exercise program (upper extremity and functional activities) with support of family utilizing provided written and visual instructions from therapist. = 50% met - Treatment 5 Descriptor Bimanual activities. Cane exercises. Seated row. 1x10. Seated row to knees. 1x10. 4 Descriptor Orientation to midline. Seated orientation to midline/ functional weight shifting. L <-> R. Trunk ext. Trunk rot. Trunk flex. 1x10. All exercises repeated with blue balance disk at EOM. 1x10. 3 Descriptor ROM of shoulder. PROM of sh completed by therapist. Sh flex, sh abd, ER , hor abd w/ ER. 2 Descriptor Tone Management. Seated WB. 1 Descriptor HEP/POC. was present throughout treatment session; will need to follow-up re: alternative sling. See below for additional information re: education/recommendations. Exercises 6 Descriptor Shoulder shrugs. Backwards sh shrugs. Side Both Body Position Sitting Sets 1 Repetitions 10 5 Descriptor Elbow AROM. Elbow flex. Elbow ext. Side Right Body Position Sitting Sets 1 Repetitions 10 4 Descriptor Education Courses Sales Representative strengthening exercises. Foam block squeezes. 1x10. 500 gm weighted ball ( sustained hold x 2-5 seconds in length). 1x10. Cane pull. 1x10. (therapist providing resistance). Side Right Body Position Sitting 1 Descriptor Scapular pinches Side Both Body Position Sitting Sets 1 Repetitions 10 - Assessment Patient Response to Treatment Good Rehab Potential Fair Assessment of Improvement Increasing tolerance for EOM trunk/core, orientation to midline exercises. Education repeated in re: positioning in sitting and in supine to minimize/prevent further contracture formation to support pain-free ability to engage in functional activities. Education completed re: importance of supporting scapular mobility on R side (for posture, preventing development of additional secondary issues). Education re: focus on sustained manager part versus ability to increase resistance given decreased success w/ larger, increased weighted spherical ball. Recommend continued outpatient OT is recommended at this time to maximize patient's functional independence relative to PLOF and address positioning of UE, as well as active range of motion/manager part strength to support functional dressing, et cetera. Recommended activities: ROM; trunk/core Home Exercise Program Please refer to treatment section of note for specific details. Reviewed with Patient/Caregiver Goals,Home Exercise Program Patient/Caregiver Understanding Good - Plan Therapy Recommendations Continue with Current Program, Advance per Rehabilitation Protocol Additional Therapy Recommendations Consult w/ other therapies
--- NOTE | 2020-01-21 15:13 | OT.OP.TRT ---
Visit Care Team Role Provider Type Delfino Epstein MD Attending Provider Physician Primary Care Provider Specialty: Family Practice Address: [address] [place] [address], [id number] Email: [email or web address] Occupational Therapy Treatment Note OT Outpatient Treatment Note - Adult Start: 11/11/19 14:25 Freq: Status: Active Protocol: Document 01/21/20 15:08 AMS (Rec: 01/21/20 15:13 AMS [email or web address]) OT Outpatient Adult Treatment Note Visit Information Plan of Care Dates 11/11/19-02/04/20 Insurance Information Uniform Medical Setting Treatment Setting Outpatient Care Visit Type Note Type Administrative Note General Information General Information Patient is a 63 year-old male referred to outpatient OT by PCP; patient was accompanied to initial eval by . 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 He was recently hospitalized 06/22/19 d/t 3 falls that occurred on the same day. He was d/c and then re-hospitalized in August 2019. He was identified to have low sodium. Post hospitalization patient had Home Health OT; Home Health HEP was designed as follows: shoulder flex; sh abd; sh hor abd; wrist ext; positioning of hand/wrist on towel; PROM of digits of L hand; passive elbow flexion/ext. HEP also includes writing of name and squeezing putty. Frequency is 1 x per day, 10 reps. PMH: significant for RA; blood clots; depression; diabetes mellitus I; falls; depression; heart attack; pacemaker; neuropathy; R elbow surgery. - Subjective Observations Therapist spoke to Sukh's , Felicity, via telephone. Informed that Sukh will be placed on hold from outpatient therapy d/t COVID 19 concerns based on CDC recommendations. Felicity verbalized understanding. Therapist to convey information to director of front office staff (re: scheduling recommendations). Therapist to follow-up as appropriate. - - - -
--- NOTE | 2020-04-20 15:30 | OT.OP.REEVAL ---
Visit Care Team Role Provider Type Delfino Epstein MD Attending Provider Physician Primary Care Provider Address: [address] [place] [address], [id number] Email: [email or web address] Outpatient OT Outpatient Adult Evaluation Start: 11/11/19 14:25 Freq: Status: Active Protocol: Document 11/11/19 14:26 AMS (Rec: 11/11/19 15:03 AMS [id number]) General Information Session Time Visit Start Time 09:30 Visit Stop Time 10:15 Total Visit Minutes 45 Visit Information Visit Number 11/13 Plan of Care Dates 11/11/19-02/04/20 Insurance Information Uniform Medical Setting Treatment Setting Outpatient Care Visit Type Note Type Initial Evaluation Referral Referring Physician Dr. Epstein Identification Identification Confirmed Yes: Photo ID Previous Therapy Previous Therapy/Therapies Yes Therapy Pain Assessment Pain When Pain Assessed pre- treat Pain Present Pain Present Denied Pain Goals Objective Measurements Objective Measurements Decreased active ROM of R UE; increased focus of patient on passive/assist from non- affected UE. Avg 3 pounds of force w/ R heel burnisher and 38 pounds of force w/ L heel burnisher w/ dynamometer heel burnisher II strength testing. -40 degrees passive elbow ext; -40 - 122 degrees passive elbow flex; 0-40 degrees passive sh ext; 0-40 degrees passive R sh flex; 0- 80 degrees passive R sh abd; 0 -5 degrees passive R forearm supination; WFL passive forearm pronation. Functional ADLS: Dependent w/ buttons; elastic shoe laces being utilized (however, still needs assist w/ R side d/t AFO); mod I w/ L sock; needs assist w/ R sock d/t it being a compression stockinette; assist w/ management of R sleeve/UB dressing and assist w/ LB dressing. Increased assist reported w/ g/h (e.g., donning deodarant on R side). PLOF based on 's report: able to manage UB dressing without assistance, including buttons utilizing 1 handed approach. Able to manage pants without assistance. able to apply deodarant without assist . Treatment Treatment Initiated HEP; recommended execution of scapular pinches to support scapular mobility and overall posture. Recommended positioning of UE out of typical randa pattern, including at knee and to the right of the body. Short Term Goals Short Term Goals 1. Sukh will be able to execute UB dressing (e.g., donning shirts) without physical assistance on a daily basis based on caregiver's verbal report. 2. Sukh will be able to manage buttons of UB clothing items (e.g., button-up shirt) without physical assistance on a daily basis based on caregiver's verbal report. 3. Sukh will be able to apply deodarant (g/h) on daily basis without physical assistance based on caregiver' s verbal report. 4. Sukh will average 6 pounds of force with right heel burnisher dynamometer II strength testing to support non-verbal communication with brother via handshake. Bowstring Maker Goals Custodial Goals 1. Sukh will be modified independent with execution of home exercise program (upper extremity and functional activities) with support of family utilizing provided written and visual instructions from therapist. Assessment/Plan Assessment Patient Response Good Rehabilitation Potential Fair Treatment Assessment Patient is a 63 year-old male referred to outpatient OT by PCP; patient was accompanied to initial eval by . 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 He was recently hospitalized 06/22/19 d/t 3 falls that occurred on the same day. He was d/c and then re-hospitalized in August 2019. He was identified to have low sodium. Post hospitalization patient had Home Health OT; Home Health HEP was designed as follows: shoulder flex; sh abd; sh hor abd; wrist ext; positioning of hand/wrist on towel; PROM of digits of L hand; passive elbow flexion/ext. HEP also includes writing of name and squeezing putty. Frequency is 1 x per day, 10 reps. PMH: significant for RA; blood clots; depression; diabetes mellitus I; falls; depression; heart attack; pacemaker; neuropathy; R elbow surgery. Goals: increase functional independence to PLOF; increase functional core strength; increase attention to R UE Evaluation findings: Ambulates w/ large base quad cane and AFO; decreased trunk/ core strength; decreased orientation to midline; impaired posture; neglect of right side; increased tone of UE; decreased active ROM of UE ; decreased heel burnisher strength; impaired cognition; fatigue; decreased endurance; decreased functional independence; impaired balance. Outpatient OT is recommended at this time to maximize patient's functional independence relative to PLOF and address positioning of UE, as well as active range of motion/heel burnisher strength to support functional dressing, et cetera. Home Exercise Program Please refer to treatment section of note for specific details. Reviewed with Patient Goals,Home Exercise Program Plan Comment 12 weeks Treatment Frequency Once a Week Therapeutic Contents Active Range of Motion, Adaptive Equipment Education, Client Education,Cognitive Skills Development,Functional Activities,Home Exercise Program,Joint Protection, Manual Therapy,Education, Neurodevelopment Treatment, Neuromuscular Re-Education, Self-Care,Stretching/ Flexibility Activities, Therapeutic Activities, Therapeutic Exercises, Modalities,Sensory Re- education Types of Modalities Contrast Bath,E-Stim, Functional Stimulation (FES), Ice Massage,T.E.N. Stimulation ,TENS Placement/Application, Ultrasound,Other Additional Types of Modalities Paraffin bath/Heat Patient Instruction Home Exercise Program,Plan of Care,Questions/Concerns,Other Sensory Assessment Sensory Profile2 Functional Wrist/Hand Scan Hand Side OT Outpatient Range of Motion Start: 11/11/19 14:25 Freq: Status: Active Protocol: Document 04/20/20 15:30 AMS (Rec: 04/28/20 12:23 AMS [id number]) ROM - Shoulder Shoulder Left Shoulder ROM WFL Yes Right Active Shoulder ROM WFL No Shoulder Flex AROM (degrees) 0-20 Query Text: Shoulder Flex PROM (degrees) 0-90 Query Text: Shoulder Ext AROM (degrees) 0-10 Shoulder Ext PROM (degrees) 0-40 Shoulder Abd AROM (degrees) 0-5 Shoulder Abd PROM (degrees) 0-60 Shoulder ER AROM (degrees) 0 Shoulder ER PROM (degrees) 0-60 Comments Previous measurements: 0-35 sh flex AROM 0-90 sh flex PROM 0-10 sh ext AROM 0-40 sh ext PROM 0-0 sh abd AROM 0-60 sh abd PROM ROM - Elbow/Forearm Elbow/Forearm Measured in Degrees Left Elbow/Forearm ROM WFL Yes Right Elbow/Forearm ROM WFL No Elbow Flex AROM (degrees) -45-110 Elbow Flex PROM (degrees) -45-135 Elbow Ext AROM (degrees) 30 Elbow Ext PROM (degrees) -45-135 Forearm Pron AROM (degrees) Full Forearm Sup AROM (degrees) 0 Forearm Sup PROM (degrees) Did not tolerate Comments 04/20/20 ROM Measurements OT Outpatient Treatment Note - Adult Start: 11/11/19 14:25 Freq: Status: Active Protocol: Document 04/20/20 15:30 AMS (Rec: 04/28/20 12:23 AMS [id number]) OT Outpatient Adult Treatment Note Session Time Visit Start Time 08:30 Visit Stop Time 09:15 Total Visit Minutes 45 Visit Information Plan of Care Dates 04/20/20-07/13/20 Insurance Information Uniform Medical Setting Treatment Setting Outpatient Care Visit Type Note Type Progress Note General Information General Information Patient is a 63 year-old male referred to outpatient OT by PCP; patient was accompanied to initial eval by . 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 He was recently hospitalized 06/22/19 d/t 3 falls that occurred on the same day. He was d/c and then re-hospitalized in August 2019. He was identified to have low sodium. Post hospitalization patient had Home Health OT; Home Health HEP was designed as follows: shoulder flex; sh abd; sh hor abd; wrist ext; positioning of hand/wrist on towel; PROM of digits of L hand; passive elbow flexion/ext. HEP also includes writing of name and squeezing putty. Frequency is 1 x per day, 10 reps. PMH: significant for RA; blood clots; depression; diabetes mellitus I; falls; depression; heart attack; pacemaker; neuropathy; R elbow surgery. - Subjective Identification Type Name Identification Reconciled With Medical Record Others Present Family Observations Sukh was accompanied by his , Felicity, to outpatient OT treatment session. Felicity reported that they got 'a new chair for Sukh about a week/ 10 days ago'. Felicity indicated that there is some concern d/t Sukh's 'blood sugers being really low'. CDC recommendations were followed. Patient/Caregiver Compliance with Home Good Exercise Program Comments w/ family support - Objective Objective Measurements Please refer to below for progress towards meeting established OT goals. Short Term Goals 1. Sukh will be able to apply deodarant (g/h) on daily basis without physical assistance based on caregiver' s verbal report. 01/14/20= 50% met 2. Sukh will average 6.0 pounds of force with right heel burnisher dynamometer II strength testing to support non-verbal communication with brother via handshake. 04/20/20= 50% met; avg 5# of force R heel burnisher 3. Sukh will be able to complete UB dressing (e.g., donning shirts) with increased time without physical assistance on daily basis per family report. 04/20/20= 50% met 4. Sukh will present with increased attention to right upper extremity, as well as increased functional incorporation of the right upper extremity; this will be evidenced by active incorporation of the right upper extremity/hand with stabilization of objects at tabletop (e.g., manipulation of personal mug) 3 to 4 times per week based on family report requiring no more than 1-2 verbal cues per occasion. 5. 0-30 degrees active right shoulder flexion. GOALS MET Management of UB buttons w/ increased time on daily basis per family report. *MET Custodial Goals 1. Sukh will be modified independent with execution of home exercise program (upper extremity and functional activities) with support of family utilizing provided written and visual instructions from therapist. = 50% met - Treatment 5 Descriptor Bimanual activities. Cane exercises. Seated row. 1x10. Seated row to knees. 1x10. 4 Descriptor Orientation to midline. Seated orientation to midline/ functional weight shifting. 3 Descriptor ROM of shoulder. Measurements. 2 Descriptor Tone Management. Seated WB. 1 Descriptor HEP/POC. Felicity, was present throughout treatment session. Determined focus of treatment with 's feedback . Exercises 6 Descriptor Shoulder shrugs. Backwards sh shrugs. Side Both Body Position Sitting Sets 1 Repetitions 10 5 Descriptor Elbow AROM. Elbow flex. Elbow ext. Side Right Body Position Sitting Sets 1 Repetitions 10 - Assessment Patient Response to Treatment Good Rehab Potential Fair Assessment of Improvement Gap in treatment did occur secondary to COVID-19; adjusted goals to reflect findings on this date and to reflect goals/areas identified by Felicity sandy. Outpatient OT is recommended to address heel burnisher strength, functional abilities, bimanual coordination, trunk/core (to support functional success/ caregiver support) and positioning of the R UE (sling has been considered previously and will need to be re-visited). Sukh has a supportive family to help with carry-over of recommendations /overseeing completion of exercises; family has even recently invested in personal chair to support posture and engagement of trunk/core musculature! Recommended activities: ROM; functional trunk/core engagement; bimanual activities Home Exercise Program Please refer to treatment section of note for specific details. Reviewed with Patient/Caregiver Goals,Home Exercise Program Patient/Caregiver Understanding Good - Plan Comment 12 weeks Frequency of Treatment Once a Week Therapeutic Contents Active Range of Motion, Adaptive Equipment Education, Client Education,Cognitive Skills Development,Functional Activities,Home Exercise Program,Joint Protection, Manual Therapy,Education, Neurodevelopment Treatment, Neuromuscular Re-Education, Self-Care,Splinting,Stretching /Flexibility Activities, Therapeutic Activities, Therapeutic Exercises, Modalities,Sensory Re- education Modalities As Needed,As Prescribed Occupational Therapy Assessment OT Outpatient Range of Motion Start: 11/11/19 14:25 Freq: Status: Active Protocol: Document 04/20/20 15:30 AMS (Rec: 04/28/20 12:23 AMS [id number]) ROM - Shoulder Shoulder Left Shoulder ROM WFL Yes Right Active Shoulder ROM WFL No Shoulder Flex AROM (degrees) 0-20 Query Text: Shoulder Flex PROM (degrees) 0-90 Query Text: Shoulder Ext AROM (degrees) 0-10 Shoulder Ext PROM (degrees) 0-40 Shoulder Abd AROM (degrees) 0-5 Shoulder Abd PROM (degrees) 0-60 Shoulder ER AROM (degrees) 0 Shoulder ER PROM (degrees) 0-60 Comments Previous measurements: 0-35 sh flex AROM 0-90 sh flex PROM 0-10 sh ext AROM 0-40 sh ext PROM 0-0 sh abd AROM 0-60 sh abd PROM ROM - Elbow/Forearm Elbow/Forearm Measured in Degrees Left Elbow/Forearm ROM WFL Yes Right Elbow/Forearm ROM WFL No Elbow Flex AROM (degrees) -45-110 Elbow Flex PROM (degrees) -45-135 Elbow Ext AROM (degrees) 30 Elbow Ext PROM (degrees) -45-135 Forearm Pron AROM (degrees) Full Forearm Sup AROM (degrees) 0 Forearm Sup PROM (degrees) Did not tolerate Comments 04/20/20 ROM Measurements
--- NOTE | 2020-04-27 15:30 | OT.OP.TRT ---
Visit Care Team Role Provider Type Delfino Epstein MD Attending Provider Physician Primary Care Provider Specialty: Family Practice Address: [address] [place] [address], [id number] Email: [email or web address] Occupational Therapy Treatment Note OT Outpatient Treatment Note - Adult Start: 11/11/19 14:25 Freq: Status: Active Protocol: Document 04/27/20 15:30 AMS (Rec: 04/28/20 15:09 AMS [id number]) OT Outpatient Adult Treatment Note Session Time Visit Start Time 09:30 Visit Stop Time 10:15 Total Visit Minutes 45 Visit Information Plan of Care Dates 04/20/20-07/13/20 Insurance Information Uniform Medical Setting Treatment Setting Outpatient Care Visit Type Note Type Treatment Note General Information General Information Patient is a 63 year-old male referred to outpatient OT by PCP; patient was accompanied to initial eval by . 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 He was recently hospitalized 06/22/19 d/t 3 falls that occurred on the same day. He was d/c and then re-hospitalized in August 2019. He was identified to have low sodium. Post hospitalization patient had Home Health OT; Home Health HEP was designed as follows: shoulder flex; sh abd; sh hor abd; wrist ext; positioning of hand/wrist on towel; PROM of digits of L hand; passive elbow flexion/ext. HEP also includes writing of name and squeezing putty. Frequency is 1 x per day, 10 reps. PMH: significant for RA; blood clots; depression; diabetes mellitus I; falls; depression; heart attack; pacemaker; neuropathy; R elbow surgery. - Subjective Identification Type Name Identification Reconciled With Medical Record Others Present Family Observations Sukh was accompanied by his , Felicity, to outpatient OT. CDC recommendations were followed. I think we have some in the garage per Diele in re: left-over PVC parts. Patient/Caregiver Compliance with Home Good Exercise Program Comments w/ family support - Objective Objective Measurements Please refer to below for progress towards meeting established OT goals. Short Term Goals 1. Sukh will be able to apply deodarant (g/h) on daily basis without physical assistance based on caregiver' s verbal report. 01/14/20= 50% met 2. Sukh will average 6.0 pounds of force with right flight hostess dynamometer II strength testing to support non-verbal communication with brother via handshake. 04/20/20= 50% met; avg 5# of force R flight hostess 3. Sukh will be able to complete UB dressing (e.g., donning shirts) with increased time without physical assistance on daily basis per family report. 04/20/20= 50% met 4. Sukh will present with increased attention to right upper extremity, as well as increased functional incorporation of the right upper extremity; this will be evidenced by active incorporation of the right upper extremity/hand with stabilization of objects at tabletop (e.g., manipulation of personal mug) 3 to 4 times per week based on family report requiring no more than 1-2 verbal cues per occasion. 5. 0-30 degrees active right shoulder flexion. GOALS MET Management of UB buttons w/ increased time on daily basis per family report. *MET Street Light Repairer Goals 1. Sukh will be modified independent with execution of home exercise program (upper extremity and functional activities) with support of family utilizing provided written and visual instructions from therapist. = 50% met - Treatment 5 Descriptor Bimanual activities. Cane exercises. Seated row. 1x10. Seated row to knees. 1x10. 4 Descriptor Orientation to midline. Seated orientation to midline/ functional weight shifting. 3 Descriptor Scapular mobilization. PROM of shoulder. 2 Descriptor Tone Management. Seated WB. 1 Descriptor HEP/POC. , Felicity, was present throughout treatment session. Discussed activities to complete in the home at TT level with cushioning of the elbow; discussed importance of height of TT to promote success. Activities that were discussed will also designed to support strengthening of flight hostess and optimization w/ stabilization. Dieyvonne was present and denied questions. Exercises 6 Descriptor Shoulder shrugs. Backwards sh shrugs. 5 Descriptor Elbow AROM. Elbow flex. Elbow ext. - Assessment Patient Response to Treatment Good Rehab Potential Fair Assessment of Improvement Positive response to TT tasks; support with motor planning was needed relative to optimal stabilization. (-) nonverbal signs and/or symptoms of discomfort were observed by therapist w/ positioning of forearm on TT. Recommend repeating these activities. Sukh has a supportive family to help with carry-over of recommendations/overseeing completion of exercises. Outpatient OT is recommended to address flight hostess strength, functional abilities, bimanual coordination, trunk/core (to support functional success/ caregiver support) and positioning of the R UE (sling has been considered previously and will need to be re-visited). Recommended activities: ROM; functional trunk/core engagement; bimanual activities Home Exercise Program Please refer to treatment section of note for specific details. Reviewed with Patient/Caregiver Goals,Home Exercise Program Patient/Caregiver Understanding Good - Plan Therapy Recommendations Continue with Current Program, Advance per Rehabilitation Protocol
--- NOTE | 2020-05-04 15:30 | OT.OP.TRT ---
Visit Care Team Role Provider Type Delfino Epstein MD Attending Provider Physician Primary Care Provider Specialty: Family Practice Address: [address] [place] [address], [id number] Email: [email or web address] Occupational Therapy Treatment Note OT Outpatient Treatment Note - Adult Start: 11/11/19 14:25 Freq: Status: Active Protocol: Document 05/04/20 15:30 AMS (Rec: 05/16/20 07:54 AMS [id number]) OT Outpatient Adult Treatment Note Session Time Visit Start Time 10:30 Visit Stop Time 11:15 Total Visit Minutes 45 Visit Information Plan of Care Dates 04/20/20-07/13/20 Insurance Information Uniform Medical Setting Treatment Setting Outpatient Care Visit Type Note Type Treatment Note General Information General Information Patient is a 63 year-old male referred to outpatient OT by PCP; patient was accompanied to initial eval by . 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 Patient has been seen in outpatient clinic at [facility] for OT, PT, and BOARDMARKER. He was recently hospitalized 06/22/19 d/t 3 falls that occurred on the same day. He was d/c and then re-hospitalized in August 2019. He was identified to have low sodium. Post hospitalization patient had Home Health OT; Home Health HEP was designed as follows: shoulder flex; sh abd; sh hor abd; wrist ext; positioning of hand/wrist on towel; PROM of digits of L hand; passive elbow flexion/ext. HEP also includes writing of name and squeezing putty. Frequency is 1 x per day, 10 reps. PMH: significant for RA; blood clots; depression; diabetes mellitus I; falls; depression; heart attack; pacemaker; neuropathy; R elbow surgery. - Subjective Identification Type Name Identification Reconciled With Medical Record Others Present Family Observations Sukh was accompanied by his , Felicity, to outpatient OT. No further information re: lab results. Patient/Caregiver Compliance with Home Good Exercise Program Comments w/ family support - Objective Objective Measurements Please refer to below for progress towards meeting established OT goals. Short Term Goals 1. Sukh will be able to apply deodarant (g/h) on daily basis without physical assistance based on caregiver' s verbal report. 01/14/20= 50% met 2. Sukh will average 6.0 pounds of force with right medical staffing coordinator dynamometer II strength testing to support non-verbal communication with brother via handshake. 04/20/20= 50% met; avg 5# of force R medical staffing coordinator 3. Sukh will be able to complete UB dressing (e.g., donning shirts) with increased time without physical assistance on daily basis per family report. 04/20/20= 50% met 4. Sukh will present with increased attention to right upper extremity, as well as increased functional incorporation of the right upper extremity; this will be evidenced by active incorporation of the right upper extremity/hand with stabilization of objects at tabletop (e.g., manipulation of personal mug) 3 to 4 times per week based on family report requiring no more than 1-2 verbal cues per occasion. 5. 0-30 degrees active right shoulder flexion. GOALS MET Management of UB buttons w/ increased time on daily basis per family report. *MET Pinking Sewing Machine Operator Goals 1. Sukh will be modified independent with execution of home exercise program (upper extremity and functional activities) with support of family utilizing provided written and visual instructions from therapist. = 50% met - Treatment 5 Descriptor Bimanual activities. 4 Descriptor Orientation to midline. Seated orientation to midline/ functional weight shifting. 3 Descriptor Scapular mobilization. PROM of shoulder. 2 Descriptor Tone Management. Seated WB. 1 Descriptor HEP/POC. Discussed positioning of R UE at side w/ use of ball to support neutral positioning of the forearm/ wrist and opening up of the hand (extension of digits). Recommended use of visual aide (mirror or visual target) for execution of TT exercises to support Sukh's success given positive response to visual cues w/ execution of familiar exercises/activities. Diele was present and denied questions. Exercises 7 Descriptor TT ROM. B Sh flex. 1 x 10. B Sh hor abd/add. 1 x 10. B Sh abd. 1 x 10. 6 Descriptor Mirror. Seated. B Sh shrugs. 1 x 10. B Backwards sh rolls. 1 x 10. B Scapular pinches. 1 x 10. 5 Descriptor Elbow AROM. Facilitation by therapist. Elbow flex. 1 x 10. Elbow ext. 1 x 10. - Assessment Assessment of Improvement Positive response to visual cues w/ execution of familiar exercises. Recommend repeating these exercises and building upon them as tolerated by patient. Re-discussed UE positioning options w/ use of sling; discussed importance of ROM given sling can have an impact on ROM. Will follow-up at time of next session and contact hospital's DME provider. Sukh has a supportive family to help with carry-over of recommendations /overseeing completion of exercises. Outpatient OT is recommended to address medical staffing coordinator strength, functional abilities , bimanual coordination, trunk /core (to support functional success/caregiver support) and positioning of the R UE ( sling has been considered previously and will need to be re-visited). Recommended activities: ROM; functional trunk/core engagement; bimanual activities Home Exercise Program Please refer to treatment section of note for specific details. Reviewed with Patient/Caregiver Goals,Home Exercise Program Patient/Caregiver Understanding Good - Plan Therapy Recommendations Continue with Current Program, Advance per Rehabilitation Protocol
--- NOTE | 2020-05-09 15:30 | OT.OP.TRT ---
Visit Care Team Role Provider Type Delfino Epstein MD Attending Provider Physician Primary Care Provider Specialty: Family Practice Address: [address] [place] [address], [id number] Email: [email or web address] Occupational Therapy Treatment Note OT Outpatient Treatment Note - Adult Start: 11/11/19 14:25 Freq: Status: Active Protocol: Document 05/09/20 15:30 AMS (Rec: 05/16/20 08:07 AMS [id number]) OT Outpatient Adult Treatment Note Session Time Visit Start Time 13:30 Visit Stop Time 14:15 Total Visit Minutes 45 Visit Information Plan of Care Dates 04/20/20-07/13/20 Insurance Information Uniform Medical Setting Treatment Setting Outpatient Care Visit Type Note Type Treatment Note General Information General Information Patient is a 63 year-old male referred to outpatient OT by PCP; patient was accompanied to initial eval by . 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 Patient has been seen in outpatient clinic at [facility] for OT, PT, and PROC TECH. He was recently hospitalized 06/22/19 d/t 3 falls that occurred on the same day. He was d/c and then re-hospitalized in August 2019. He was identified to have low sodium. Post hospitalization patient had Home Health OT; Home Health HEP was designed as follows: shoulder flex; sh abd; sh hor abd; wrist ext; positioning of hand/wrist on towel; PROM of digits of L hand; passive elbow flexion/ext. HEP also includes writing of name and squeezing putty. Frequency is 1 x per day, 10 reps. PMH: significant for RA; blood clots; depression; diabetes mellitus I; falls; depression; heart attack; pacemaker; neuropathy; R elbow surgery. - Subjective Identification Type Name Identification Reconciled With Medical Record Others Present Family Observations Sukh was accompanied by his , Felicity, to outpatient OT. Felicity is still awaiting recommendations from PCP re: lab results. Patient/Caregiver Compliance with Home Good Exercise Program Comments w/ family support - Objective Objective Measurements Please refer to below for progress towards meeting established OT goals. Short Term Goals 1. Sukh will be able to apply deodarant (g/h) on daily basis without physical assistance based on caregiver' s verbal report. 01/14/20= 50% met 2. Sukh will average 6.0 pounds of force with right drafting engineer dynamometer II strength testing to support non-verbal communication with brother via handshake. 04/20/20= 50% met; avg 5# of force R drafting engineer 3. Sukh will be able to complete UB dressing (e.g., donning shirts) with increased time without physical assistance on daily basis per family report. 04/20/20= 50% met 4. Sukh will present with increased attention to right upper extremity, as well as increased functional incorporation of the right upper extremity; this will be evidenced by active incorporation of the right upper extremity/hand with stabilization of objects at tabletop (e.g., manipulation of personal mug) 3 to 4 times per week based on family report requiring no more than 1-2 verbal cues per occasion. 5. 0-30 degrees active right shoulder flexion. GOALS MET Management of UB buttons w/ increased time on daily basis per family report. *MET Mcc Goals 1. Sukh will be modified independent with execution of home exercise program (upper extremity and functional activities) with support of family utilizing provided written and visual instructions from therapist. = 50% met - Treatment 5 Descriptor Bimanual activities. 4 Descriptor Orientation to midline. Seated orientation to midline/ functional weight shifting. 3 Descriptor Scapular mobilization. PROM of shoulder. 2 Descriptor Tone Management. 1 Descriptor HEP/POC. Discussed R UE sling options; recommended continued use of GivMohr for ambulation . Measured for proximal R UE howie sling; determined appropriate size for patient. Discussed cons of howie arm sling which would position UE in sh add, IR, elbow flex ( reinforcing tone pattern). Felicity was in agreement to trial proximal hwoie sling which does not have distal UE component (vs GivMohr); this would likely permit ease of use when seated. Discussed importance of UE ROM with sling use. Dieyvonne and Sukh denied questions. Exercises 7 Descriptor TT ROM. B Sh flex. 1 x 10. B Sh hor abd/add. 1 x 10. B Sh abd. 1 x 10. 6 Descriptor Mirror. Seated. B Sh shrugs. 1 x 10. B Backwards sh rolls. 1 x 10. B Scapular pinches. 1 x 10. 5 Descriptor Elbow AROM. Facilitation by therapist. Elbow flex. 1 x 10. Elbow ext. 1 x 10. 4 Descriptor Digit/Hand strengthening exercises. 500 gm weighted ball ( sustained hold x 2-5 seconds in length). 1 x 10. PVC pipe stabilization for separation (bimanual task). 1 x 10. - Assessment Assessment of Improvement Medium size for Howie-Shoulder sling; will contact hospital DME provider and follow-up in re: insurance coverage/fit. Positive response to visual cues with UE exercises seated and at TT. Fatigue observed w/ drafting engineer/digit activities; recommend incorporating additional exercises/ activities to target this area as tolerated. Sukh has a supportive family to help with carry-over of recommendations /overseeing completion of exercises. Outpatient OT is recommended to address drafting engineer strength, functional abilities , bimanual coordination, trunk /core (to support functional success/caregiver support) and positioning of the R UE ( sling has been considered previously and will need to be re-visited). Recommended activities: TT; mirror; drafting engineer/digit strengthening; bimanual tasks Home Exercise Program Please refer to treatment section of note for specific details. Reviewed with Patient/Caregiver Goals,Home Exercise Program Patient/Caregiver Understanding Good - Plan Therapy Recommendations Continue with Current Program, Advance per Rehabilitation Protocol
--- NOTE | 2020-05-16 16:23 | OT.OP.TRT ---
Visit Care Team Role Provider Type Delfino Epstein MD Attending Provider Physician Primary Care Provider Specialty: Family Practice Address: [address] [place] [address], [id number] Email: [email or web address] Occupational Therapy Treatment Note OT Outpatient Treatment Note - Adult Start: 11/11/19 14:25 Freq: Status: Active Protocol: Document 05/16/20 16:05 AMS (Rec: 05/16/20 16:22 AMS [id number]) OT Outpatient Adult Treatment Note Session Time Visit Start Time 13:30 Visit Stop Time 14:15 Total Visit Minutes 45 Visit Information Plan of Care Dates 04/20/20-07/13/20 Insurance Information Uniform Medical Setting Treatment Setting Outpatient Care Visit Type Note Type Treatment Note General Information General Information Patient is a 63 year-old male referred to outpatient OT by PCP; patient was accompanied to initial eval by . 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 He was recently hospitalized 06/22/19 d/t 3 falls that occurred on the same day. He was d/c and then re-hospitalized in August 2019. He was identified to have low sodium. Post hospitalization patient had Home Health OT; Home Health HEP was designed as follows: shoulder flex; sh abd; sh hor abd; wrist ext; positioning of hand/wrist on towel; PROM of digits of L hand; passive elbow flexion/ext. HEP also includes writing of name and squeezing putty. Frequency is 1 x per day, 10 reps. PMH: significant for RA; blood clots; depression; diabetes mellitus I; falls; depression; heart attack; pacemaker; neuropathy; R elbow surgery. - Subjective Identification Type Name Identification Reconciled With Medical Record Others Present Family Observations Sukh was accompanied by his , Felicity, to outpatient OT. We still have not had a face -to-face meeting with his doctor. His blood sugars have now flipped; they are going low where they used to go high . He is still battling the anemia and the fatigue from that. Right now, we are doing some other things to see if it will help per Felicity. I have been working on the bedside table to see how to make it work per Diele. I still haven't quite figured out the best way to configure it. Patient/Caregiver Compliance with Home Good Exercise Program Comments w/ family support - Objective Objective Measurements Please refer to below for progress towards meeting established OT goals. 05/16/20= avg 8 pounds of force w/ R chief talent officer dynamometer II testing. Short Term Goals 1. Sukh will be able to apply deodarant (g/h) on daily basis without physical assistance based on caregiver' s verbal report. 01/14/20= 50% met 2. Sukh will be able to complete UB dressing (e.g., donning shirts) with increased time without physical assistance on daily basis per family report. 05/16/20= 75% met; recommend following-up ( completed on this date without assist) 3. Sukh will present with increased attention to right upper extremity, as well as increased functional incorporation of the right upper extremity; this will be evidenced by active incorporation of the right upper extremity/hand with stabilization of objects at tabletop (e.g., manipulation of personal mug) 3 to 4 times per week based on family report requiring no more than 1-2 verbal cues per occasion. 4. 0-30 degrees active right shoulder flexion. GOALS MET Management of UB buttons w/ increased time on daily basis per family report. *MET Will avg 6.0# of force w/ R chief talent officer dynamometer II strength testing. *MET 05/16/20; avg 8# of force w/ chief talent officer Regulatory Manager Goals 1. Sukh will be modified independent with execution of home exercise program (upper extremity and functional activities) with support of family utilizing provided written and visual instructions from therapist. = 50% met - Treatment 4 Descriptor Orientation to midline. Seated orientation to midline/ functional weight shifting. Chair seated. R functional weight shift. B feet floor. 1 x 10. Chair seated. R functional weight shift. Removal of L foot from floor. 1 x 10. Management of R UE by therapist. 3 Descriptor Scapular mobilization. PROM of shoulder. 2 Descriptor Tone Management. 1 Descriptor HEP/POC. Discussed R UE sling options; recommended continued use of GivMohr for ambulation . Measured for proximal R UE randa sling; determined appropriate size for patient. Discussed cons of randa arm sling which would position UE in sh add, IR, elbow flex ( reinforcing tone pattern). Felicity was in agreement to trial proximal randa sling which does not have distal UE component (vs GivMohr); this would likely permit ease of use when seated. Discussed importance of UE ROM with sling use. Felicity and Sukh denied questions. Exercises 7 Descriptor TT ROM. B Sh flex towels. 1 x 10. B Sh flex bolster on TT. 1 x 10. B Sh hor abd/add. 1 x 10. B Sh abd. 1 x 10. 6 Descriptor Mirror. Seated. B Sh shrugs. 1 x 10. B Backwards sh rolls. 1 x 10. B Scapular pinches. 1 x 10. 5 Descriptor Elbow AROM. Facilitation by therapist. Elbow flex. 1 x 10. Elbow ext. 1 x 10. 4 Descriptor Digit/Hand strengthening exercises. Sustained chief talent officer on red flex bar . x 5 sec. 1 x 10. PVC pipe stabilization for separation (bimanual task). 1 x 6. - Assessment Assessment of Improvement Increasing R chief talent officer strength to support functional non-verbal communication w/ brother; evidenced by meeting short term goal in this area (avg 8# of force w/ R chief talent officer w/ dynamometer II strength testing). Introduced bolster on TT as additional option to support symmetrical UE motor planning. Initiated sustained grasp; (+) participation and recommend repeating at subsequent treatment sessions. Sukh has a supportive family to help with carry-over of recommendations/overseeing completion of exercises. Outpatient OT is recommended to address chief talent officer strength, functional abilities, bimanual coordination, trunk/core (to support functional success/ caregiver support) and positioning of the R UE (sling has been considered previously and will need to be re-visited). Recommended activities: TT; mirror; chief talent officer/digit strengthening; bimanual tasks; follow-up re: DME sling Home Exercise Program Please refer to treatment section of note for specific details. Reviewed with Patient/Caregiver Goals,Home Exercise Program Patient/Caregiver Understanding Good - Plan Therapy Recommendations Continue with Current Program, Advance per Rehabilitation Protocol
--- NOTE | 2020-05-23 15:55 | OT.OP.TRT ---
Visit Care Team Role Provider Type Delfino Epstein MD Attending Provider Physician Primary Care Provider Specialty: Family Practice Address: [address] [place] [address], [id number] Email: [email or web address] Occupational Therapy Treatment Note OT Outpatient Treatment Note - Adult Start: 11/11/19 14:25 Freq: Status: Active Protocol: Document 05/23/20 15:42 AMS (Rec: 05/25/20 15:54 AMS [id number]) OT Outpatient Adult Treatment Note Session Time Visit Start Time 13:30 Visit Stop Time 14:15 Total Visit Minutes 45 Visit Information Plan of Care Dates 04/20/20-07/13/20 Insurance Information Uniform Medical Setting Treatment Setting Outpatient Care Visit Type Note Type Treatment Note General Information General Information Patient is a 63 year-old male referred to outpatient OT by PCP; patient was accompanied to initial eval by . 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 Patient has been seen in outpatient clinic at [facility] for OT, PT, and AUDIOVISUAL LIBRARIAN. He was recently hospitalized 06/22/19 d/t 3 falls that occurred on the same day. He was d/c and then re-hospitalized in August 2019. He was identified to have low sodium. Post hospitalization patient had Home Health OT; Home Health HEP was designed as follows: shoulder flex; sh abd; sh hor abd; wrist ext; positioning of hand/wrist on towel; PROM of digits of L hand; passive elbow flexion/ext. HEP also includes writing of name and squeezing putty. Frequency is 1 x per day, 10 reps. PMH: significant for RA; blood clots; depression; diabetes mellitus I; falls; depression; heart attack; pacemaker; neuropathy; R elbow surgery. - Subjective Identification Type Name Identification Reconciled With Medical Record Others Present Family Observations Sukh was accompanied by his , Felicity, to outpatient OT. He had his shot this morning for his arthritis per Felicity. Patient/Caregiver Compliance with Home Good Exercise Program Comments w/ family support - Objective Objective Measurements Please refer to below for progress towards meeting established OT goals. 05/16/20= avg 8 pounds of force w/ R automated access systems technician dynamometer II testing. Short Term Goals 1. Sukh will be able to apply deodarant (g/h) on daily basis without physical assistance based on caregiver' s verbal report. 05/23/20= 50% met 2. Sukh will be able to complete UB dressing (e.g., donning shirts) with increased time without physical assistance on daily basis per family report. 05/23/20= 75% met; recommend following-up ( completed on this date without assist) 3. Sukh will present with increased attention to right upper extremity, as well as increased functional incorporation of the right upper extremity; this will be evidenced by active incorporation of the right upper extremity/hand with stabilization of objects at tabletop (e.g., manipulation of personal mug) 3 to 4 times per week based on family report requiring no more than 1-2 verbal cues per occasion. 05/23/20= 25% met 4. 0-30 degrees active right shoulder flexion. 05/23/20= 50% met; 0-25 degrees GOALS MET Management of UB buttons w/ increased time on daily basis per family report. *MET Will avg 6.0# of force w/ R automated access systems technician dynamometer II strength testing. *MET 05/16/20; avg 8# of force w/ automated access systems technician Nutritional Yeast Supervisor Goals 1. Sukh will be modified independent with execution of home exercise program (upper extremity and functional activities) with support of family utilizing provided written and visual instructions from therapist. = 50% met - Treatment 4 Descriptor Orientation to midline. Seated orientation to midline/ functional weight shifting. Chair seated. R functional weight shift. B feet floor. 1 x 10. Chair seated. R functional weight shift. Removal of L foot from floor. 1 x 10. Management of R UE by therapist. 3 Descriptor Scapular mobilization. PROM of shoulder. 2 Descriptor Tone Management. 1 Descriptor HEP/POC. Discussed R UE sling options; recommended continued use of GivMohr for ambulation . Measured for proximal R UE randa sling; determined appropriate size for patient. Discussed cons of randa arm sling which would position UE in sh add, IR, elbow flex ( reinforcing tone pattern). Felicity was in agreement to trial proximal randa sling which does not have distal UE component (vs GivMohr); this would likely permit ease of use when seated. Discussed importance of UE ROM with sling use. Felicity and Sukh denied questions. Exercises 8 Descriptor ROM Measurements. 7 Descriptor TT ROM. B sh flex towel. 1 x 10. B Sh hor abd/add. 1 x 10. B Sh abd. 1 x 10. R active sh add w/ towel. 1 x 10. R active sh ext w/ towel. 1 x 10. R active sh flex modified in tone pattern. 1 x 10. 6 Descriptor Mirror. Seated. B Sh shrugs. 1 x 10. B Backwards sh rolls. 1 x 10. B Scapular pinches. 1 x 10. 5 Descriptor Elbow AROM. Facilitation by therapist. Elbow flex. 1 x 10. Elbow ext. 1 x 10. 4 Descriptor Digit/Hand strengthening exercises. Sustained automated access systems technician on red flex bar . x 5 sec. 1 x 10. PVC pipe stabilization for separation (bimanual task). 1 x 6. 3 Descriptor Bimanual functional activities . Coffee mug w/ proper posture based on guidelines previously recommended for swallowing ( confirmed by Felicity). - Assessment Assessment of Improvement Need for request for insurance auth for additional visits. Paperwork to be completed and submitted by outpatient clinic manager insurance. Improving active range of motion of R UE; evidenced by some improvements w/ AROM goniometer measurements. Progressed TT exercises with incorporation of active ROM in available movement patterns. Continuing to expand on hand/ automated access systems technician strengthening w/ functional component given progress that has been observed in this area. Discussed importance of stabilization at elbow level to help facilitate bimanual manip of coffee mug at table. Sukh has a supportive family to help with carry-over of recommendations/overseeing completion of exercises. Outpatient OT is recommended to address automated access systems technician strength, functional abilities, bimanual coordination, trunk/core (to support functional success/ caregiver support) and positioning of the R UE (sling has been ordered; follow-up needed w/ DME). Recommended activities: TT; mirror; automated access systems technician/digit strengthening; bimanual tasks; follow-up re: DME sling Home Exercise Program Please refer to treatment section of note for specific details. Reviewed with Patient/Caregiver Goals,Home Exercise Program Patient/Caregiver Understanding Good - Plan Therapy Recommendations Continue with Current Program, Advance per Rehabilitation Protocol Additional Therapy Recommendations Complete insurance paperwork; provide to manager insurance. Occupational Therapy Assessment OT Outpatient Range of Motion Start: 11/11/19 14:25 Freq: Status: Active Protocol: Document 05/23/20 15:42 AMS (Rec: 05/25/20 15:54 AMS [id number]) ROM - Shoulder Shoulder Left Shoulder ROM WFL Yes Right Active Shoulder ROM WFL No Shoulder Flex AROM (degrees) 0-25 Query Text: Shoulder Flex PROM (degrees) 0-90 Query Text: Shoulder Ext AROM (degrees) 0-20 Shoulder Ext PROM (degrees) 0-40 Shoulder Abd AROM (degrees) 0-10 Shoulder Abd PROM (degrees) 0-60 Shoulder ER AROM (degrees) 0-0 Shoulder ER PROM (degrees) 0-60 Comments 04/20/20= 0-20 sh flex AROM 0-90 sh flex PROM 0-10 sh ext AROM 0-40 sh ext PROM 0-5 sh abd AROM 0-60 sh abd PROM 0-0 sh ER AROM 0-60 sh ER PROM Previous measurements: 0-35 sh flex AROM 0-90 sh flex PROM 0-10 sh ext AROM 0-40 sh ext PROM 0-0 sh abd AROM 0-60 sh abd PROM ROM - Elbow/Forearm Elbow/Forearm Measured in Degrees Left Elbow/Forearm ROM WFL Yes Right Elbow/Forearm ROM WFL No Elbow Flex AROM (degrees) -45-110 Elbow Flex PROM (degrees) -45-135 Elbow Ext AROM (degrees) 30 Elbow Ext PROM (degrees) -45-135 Forearm Pron AROM (degrees) Full Forearm Sup AROM (degrees) 0 Forearm Sup PROM (degrees) Did not tolerate Comments 04/20/20 ROM Measurements ROM - Wrist Wrist Range of Motion Measured in Degrees Left Wrist ROM WFL Yes Right Wrist ROM WFL No
--- NOTE | 2020-06-09 15:55 | OT.OP.TRT ---
Visit Care Team Role Provider Type Delfino Epstein MD Attending Provider Physician Primary Care Provider Specialty: Family Practice Address: [address] [place] [address], [id number] Email: [email or web address] Occupational Therapy Treatment Note OT Outpatient Treatment Note - Adult Start: 11/11/19 14:25 Freq: Status: Active Protocol: Document 06/09/20 15:42 AMS (Rec: 06/09/20 15:55 AMS [id number]) OT Outpatient Adult Treatment Note Session Time Visit Start Time 08:30 Visit Stop Time 09:15 Total Visit Minutes 45 Visit Information Plan of Care Dates 04/20/20-07/13/20 Insurance Information Uniform Medical Setting Treatment Setting Outpatient Care Visit Type Note Type Treatment Note General Information General Information Patient is a 63 year-old male referred to outpatient OT by PCP; patient was accompanied to initial eval by . 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 He was recently hospitalized 06/22/19 d/t 3 falls that occurred on the same day. He was d/c and then re-hospitalized in August 2019. He was identified to have low sodium. Post hospitalization patient had Home Health OT; Home Health HEP was designed as follows: shoulder flex; sh abd; sh hor abd; wrist ext; positioning of hand/wrist on towel; PROM of digits of L hand; passive elbow flexion/ext. HEP also includes writing of name and squeezing putty. Frequency is 1 x per day, 10 reps. PMH: significant for RA; blood clots; depression; diabetes mellitus I; falls; depression; heart attack; pacemaker; neuropathy; R elbow surgery. - Subjective Identification Type Name Identification Reconciled With Medical Record Others Present Family Observations Sukh was accompanied by his , Felicity, to outpatient OT. He usually stays up really late and sleeps in so this is early for him per Felicity. He seems to have more energy as of late. Going outside has been pretty motivating for him . He gets up and goes between his 2 chairs inside. Patient/Caregiver Compliance with Home Good Exercise Program Comments w/ family support - Objective Objective Measurements Please refer to below for progress towards meeting established OT goals. 05/16/20= avg 8.0 pounds of force w/ R testing analyst dynamometer II testing. Short Term Goals 1. Sukh will be able to apply deodarant (g/h) on daily basis without physical assistance based on caregiver' s verbal report. 05/23/20= 50% met 2. Sukh will present with increased attention to right upper extremity, as well as increased functional incorporation of the right upper extremity; this will be evidenced by active incorporation of the right upper extremity/hand with stabilization of objects at tabletop (e.g., manipulation of personal mug) 3 to 4 times per week based on family report requiring no more than 1-2 verbal cues per occasion. 05/23/20= 25% met 3. 0-30 degrees active right shoulder flexion. 05/23/20= 50% met; 0-25 degrees GOALS MET Management of UB buttons w/ increased time on daily basis per family report. *MET Will avg 6.0# of force w/ R testing analyst dynamometer II strength testing. *MET 05/16/20; avg 8# of force w/ testing analyst Completes UB dressing with increased time without assist on daily basis (assist needed w/ bamboo buttons d/t surface and size of buttons). *MET 06/09 Buyer Assistant Goals 1. Sukh will be modified independent with execution of home exercise program (upper extremity and functional activities) with support of family utilizing provided written and visual instructions from therapist. = 50% met - Treatment 3 Descriptor Scapular mobilization. PROM of shoulder. 2 Descriptor Tone Management. 1 Descriptor HEP/POC. Diele was present throughout treatment session; discussed altering schedule to support 'up' time to reflect day light with upcoming shorter day light hours. Diele and Sukh denied questions. Exercises 9 Descriptor R UE strengthening. Modified scapular rows. 1# DB. 1 x 10. Towel. TT. Modified sh hor add. 1# DB. 1 x 10. Towel. TT. 8 Descriptor ROM Measurements. 7 Descriptor TT ROM. B sh flex towel. 1 x 10. B Sh hor abd/add. 1 x 10. B Sh abd. 1 x 10. R active sh add w/ towel. 1 x 10. R active sh ext w/ towel. 1 x 10. R active sh flex modified in tone pattern. 1 x 10. 5 Descriptor Elbow AROM. Facilitation by therapist. Elbow flex. 1 x 10. Elbow ext. 1 x 10. 4 Descriptor Digit/Hand strengthening exercises. Sustained testing analyst on wood dowel. x 5 sec hold. 1 x 10. PVC pipe stabilization for separation (bimanual task). 1 x 6. Sustained testing analyst tennis ball. x 5 sec. 1 x 5. Small cone w/ TB #2. x 5 sec hold. 1 x 10. Forearm pronated . Small cone w/ TB #2. x 5 sec hold. Min resistance. 45 degree angle from neutral. 1 x 5. 3 Descriptor Bimanual functional activities . Coffee mug w/ proper posture based on guidelines previously recommended for swallowing ( confirmed by Felicity). - Assessment Assessment of Improvement Progressed TT exercises with incorporation of active ROM in available movement patterns w / implementation of 1# DB. Expanded upon hand/testing analyst strengthening w/ use of tennis ball and small cone w/ TB. Based on success w/ use of small cone, recommend trialing strengthening exercises w/ small cone as handle w/ TB (e. g., modified rows, et cetera at TT). Sukh has a supportive family to help with carry-over of recommendations/overseeing completion of exercises. Outpatient OT is recommended to address testing analyst strength, functional abilities, bimanual coordination, trunk/core (to support functional success/ caregiver support) and positioning of the R UE (sling has been ordered; follow-up needed w/ DME). Recommended activities: TT; mirror; testing analyst/digit strengthening; bimanual tasks; follow-up re: DME sling Home Exercise Program Please refer to treatment section of note for specific details. Reviewed with Patient/Caregiver Goals,Home Exercise Program Patient/Caregiver Understanding Good - Plan Therapy Recommendations Continue with Current Program, Advance per Rehabilitation Protocol Additional Therapy Recommendations Complete insurance paperwork; provide to insurance sales assistant.
--- NOTE | 2020-06-20 16:14 | OT.OP.TRT ---
Visit Care Team Role Provider Type Delfino Epstein MD Attending Provider Physician Primary Care Provider Specialty: Family Practice Address: [address] [place] [address], [id number] Email: [email or web address] Occupational Therapy Treatment Note OT Outpatient Treatment Note - Adult Start: 11/11/19 14:25 Freq: Status: Active Protocol: Document 06/20/20 14:49 AMS (Rec: 06/20/20 16:13 AMS [id number]) OT Outpatient Adult Treatment Note Session Time Visit Start Time 14:30 Visit Stop Time 15:15 Total Visit Minutes 45 Visit Information Plan of Care Dates 04/20/20-07/13/20 Insurance Information Uniform Medical Setting Treatment Setting Outpatient Care Visit Type Note Type Treatment Note General Information General Information Patient is a 63 year-old male referred to outpatient OT by PCP; patient was accompanied to initial eval by . 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 He was recently hospitalized 06/22/19 d/t 3 falls that occurred on the same day. He was d/c and then re-hospitalized in August 2019. He was identified to have low sodium. Post hospitalization patient had Home Health OT; Home Health HEP was designed as follows: shoulder flex; sh abd; sh hor abd; wrist ext; positioning of hand/wrist on towel; PROM of digits of L hand; passive elbow flexion/ext. HEP also includes writing of name and squeezing putty. Frequency is 1 x per day, 10 reps. PMH: significant for RA; blood clots; depression; diabetes mellitus I; falls; depression; heart attack; pacemaker; neuropathy; R elbow surgery. - Subjective Identification Type Name Identification Reconciled With Medical Record Others Present Family Observations Sukh was accompanied by his , Felicity, to outpatient OT. We went camping this last week per Diele. He was pretty motivated by his grandkids per Diele. Patient/Caregiver Compliance with Home Good Exercise Program Comments w/ family support - Objective Objective Measurements Please refer to below for progress towards meeting established OT goals. 05/16/20= avg 8.0 pounds of force w/ R sand sifter dynamometer II testing. Short Term Goals 1. Sukh will be able to apply deodarant (g/h) on daily basis without physical assistance based on caregiver' s verbal report. 06/20/20= 50% met 2. Sukh will present with increased attention to right upper extremity, as well as increased functional incorporation of the right upper extremity; this will be evidenced by active incorporation of the right upper extremity/hand with stabilization of objects at tabletop (e.g., manipulation of personal mug) 3 to 4 times per week based on family report requiring no more than 1-2 verbal cues per occasion. 06/20/20= 25% met 3. 0-30 degrees active right shoulder flexion. 05/23/20= 50% met; 0-25 degrees GOALS MET Management of UB buttons w/ increased time on daily basis per family report. *MET Will avg 6.0# of force w/ R sand sifter dynamometer II strength testing. *MET 05/16/20; avg 8# of force w/ sand sifter Completes UB dressing with increased time without assist on daily basis (assist needed w/ bamboo buttons d/t surface and size of buttons). 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 Sukh will be modified independent with execution of home exercise program (upper extremity and functional activities) with support of family utilizing provided written and visual instructions from therapist. = 50% met - Treatment 4 Descriptor Functional object manipulation /bimanual coordination. 3 Descriptor Scapular mobilization. PROM of shoulder. 2 Descriptor Tone Management. 1 Descriptor HEP/POC. Diele was present throughout treatment session; discussed improvements noted with active participation in meaningful activities w/ family (modified sling shot/ fishing - pretending to cast line). Provided TB #4 to replicate grasping and pulling exercise in treatment session w/ small cone; discussed various modifications. Recommended encouraging Sukh to stabilize objects w/ R hand w/ various functional tasks w/ L hand manipulation. Recommended pursuing modified activities of hobbies to support participation ( exploring modification of fishing pole). Diele and Sukh denied questions. Exercises 9 Descriptor R UE strengthening. Modified scapular rows. 2# DB. 1 x 10. Towel. TT. Modified sh hor add. 2# DB. 1 x 10. Towel. TT. 7 Descriptor TT ROM. B sh flex towel. 1 x 10. B Sh hor abd/add. 1 x 10. B Sh abd. 1 x 10. R active sh add w/ towel. 1 x 10. R active sh ext w/ towel. 1 x 10. R active sh flex modified in tone pattern. 1 x 10. 5 Descriptor Elbow AROM. Facilitation by therapist. Elbow flex. 1 x 10. Elbow ext. 1 x 10. 4 Descriptor Digit/Hand strengthening exercises. Sustained sand sifter tennis ball. x 5 sec. 1 x 10. Small cone w/ TB #4. x 5 sec hold. 1 x 10. Forearm pronated . Small cone w/ TB #4. x 5 sec hold. Min resistance. 45 degree angle from neutral. 1 x 10. Red flex bar. - Assessment Assessment of Improvement Progress functional bimanual activities given improving strength of right sand sifter; support required w/ problem solving and motor planning. Upgraded TT and sand sifter strengthening activities/ exercises. Recommend exploring modifications of preferred activities to help support successful participation in meaningful activities. Sukh has a supportive family to help with carry-over of recommendations/overseeing completion of exercises. Outpatient OT is recommended to address sand sifter strength, functional abilities, bimanual coordination, trunk/core (to support functional success/ caregiver support) and positioning of the R UE (sling has been ordered; follow-up needed w/ DME). Recommended activities: TT; mirror; sand sifter/digit strengthening; bimanual tasks; follow-up re: DME sling Home Exercise Program Please refer to treatment section of note for specific details. Reviewed with Patient/Caregiver Goals,Home Exercise Program Patient/Caregiver Understanding Good - Plan Therapy Recommendations Continue with Current Program, Advance per Rehabilitation Protocol
--- NOTE | 2020-07-13 15:30 | OT.OPPN ---
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 (07/13/20) Weakness (07/13/20) Occupational Therapy Inpatient Evaluation/Re-Eval OT Outpatient Adult Evaluation Start: 11/11/19 14:25 Freq: Status: Active Protocol: Document 11/11/19 14:26 AMS (Rec: 11/11/19 15:03 AMS [id number]) General Information Session Time Visit Start Time 09:30 Visit Stop Time 10:15 Total Visit Minutes 45 Visit Information Visit Number 11/13 Plan of Care Dates 11/11/19-02/04/20 Insurance Information Uniform Medical Setting Treatment Setting Outpatient Care Visit Type Note Type Initial Evaluation Referral Referring Physician Dr. Epstein Identification Identification Confirmed Yes: Photo ID Previous Therapy Previous Therapy/Therapies Yes Therapy Pain Assessment Pain When Pain Assessed pre- treat Pain Present Pain Present Denied Pain Goals Objective Measurements Objective Measurements Decreased active ROM of R UE; increased focus of patient on passive/assist from non- affected UE. Avg 3 pounds of force w/ R personal care service provider and 38 pounds of force w/ L personal care service provider w/ dynamometer personal care service provider II strength testing. -40 degrees passive elbow ext; -40 - 122 degrees passive elbow flex; 0-40 degrees passive sh ext; 0-40 degrees passive R sh flex; 0- 80 degrees passive R sh abd; 0 -5 degrees passive R forearm supination; WFL passive forearm pronation. Functional ADLS: Dependent w/ buttons; elastic shoe laces being utilized (however, still needs assist w/ R side d/t AFO); mod I w/ L sock; needs assist w/ R sock d/t it being a compression stockinette; assist w/ management of R sleeve/UB dressing and assist w/ LB dressing. Increased assist reported w/ g/h (e.g., donning deodarant on R side). PLOF based on 's report: able to manage UB dressing without assistance, including buttons utilizing 1 handed approach. Able to manage pants without assistance. able to apply deodarant without assist . Treatment Treatment Initiated HEP; recommended execution of scapular pinches to support scapular mobility and overall posture. Recommended positioning of UE out of typical ranad pattern, including at knee and to the right of the body. Short Term Goals Short Term Goals 1. Skuh will be able to execute UB dressing (e.g., donning shirts) without physical assistance on a daily basis based on caregiver's verbal report. 2. Sukh will be able to manage buttons of UB clothing items (e.g., button-up shirt) without physical assistance on a daily basis based on caregiver's verbal report. 3. Sukh will be able to apply deodarant (g/h) on daily basis without physical assistance based on caregiver' s verbal report. 4. Sukh will average 6 pounds of force with right personal care service provider dynamometer II strength testing to support non-verbal communication with brother via handshake. Group Home Goals Group Home Goals 1. Sukh will be modified independent with execution of home exercise program (upper extremity and functional activities) with support of family utilizing provided written and visual instructions from therapist. Assessment/Plan Assessment Patient Response Good Rehabilitation Potential Fair Treatment Assessment Patient is a 63 year-old male referred to outpatient OT by PCP; patient was accompanied to initial eval by . 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 Patient has been seen in outpatient clinic at [facility] for OT, PT, and ASSOCIATE DOCTOR. He was recently hospitalized 06/22/19 d/t 3 falls that occurred on the same day. He was d/c and then re-hospitalized in August 2019. He was identified to have low sodium. Post hospitalization patient had Home Health OT; Home Health HEP was designed as follows: shoulder flex; sh abd; sh hor abd; wrist ext; positioning of hand/wrist on towel; PROM of digits of L hand; passive elbow flexion/ext. HEP also includes writing of name and squeezing putty. Frequency is 1 x per day, 10 reps. PMH: significant for RA; blood clots; depression; diabetes mellitus I; falls; depression; heart attack; pacemaker; neuropathy; R elbow surgery. Goals: increase functional independence to PLOF; increase functional core strength; increase attention to R UE Evaluation findings: Ambulates w/ large base quad cane and AFO; decreased trunk/ core strength; decreased orientation to midline; impaired posture; neglect of right side; increased tone of UE; decreased active ROM of UE ; decreased personal care service provider strength; impaired cognition; fatigue; decreased endurance; decreased functional independence; impaired balance. Outpatient OT is recommended at this time to maximize patient's functional independence relative to PLOF and address positioning of UE, as well as active range of motion/personal care service provider strength to support functional dressing, et cetera. Home Exercise Program Please refer to treatment section of note for specific details. Reviewed with Patient Goals,Home Exercise Program Plan Comment 12 weeks Treatment Frequency Once a Week Therapeutic Contents Active Range of Motion, Adaptive Equipment Education, Client Education,Cognitive Skills Development,Functional Activities,Home Exercise Program,Joint Protection, Manual Therapy,Education, Neurodevelopment Treatment, Neuromuscular Re-Education, Self-Care,Stretching/ Flexibility Activities, Therapeutic Activities, Therapeutic Exercises, Modalities,Sensory Re- education Types of Modalities Contrast Bath,E-Stim, Functional Stimulation (FES), Ice Massage,T.E.N. Stimulation ,TENS Placement/Application, Ultrasound,Other Additional Types of Modalities Paraffin bath/Heat Patient Instruction Home Exercise Program,Plan of Care,Questions/Concerns,Other Sensory Assessment Sensory Profile2 Functional Wrist/Hand Scan Hand Side OT Outpatient Treatment Note - Adult Start: 11/11/19 14:25 Freq: Status: Active Protocol: Document 07/13/20 15:30 AMS (Rec: 07/15/20 11:10 AMS [id number]) OT Outpatient Adult Treatment Note Session Time Visit Start Time 13:30 Visit Stop Time 14:15 Total Visit Minutes 45 Visit Information Plan of Care Dates 07/13/20-10/05/20 Insurance Information Uniform Medical Setting Treatment Setting Outpatient Care Visit Type Note Type Progress Note General Information General Information Patient is a 63 year-old male referred to outpatient OT by PCP; patient was accompanied to initial eval by . 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 Patient has been seen in outpatient clinic at [facility] for OT, PT, and ASSOCIATE DOCTOR. He was recently hospitalized 06/22/19 d/t 3 falls that occurred on the same day. He was d/c and then re-hospitalized in August 2019. He was identified to have low sodium. Post hospitalization patient had Home Health OT; Home Health HEP was designed as follows: shoulder flex; sh abd; sh hor abd; wrist ext; positioning of hand/wrist on towel; PROM of digits of L hand; passive elbow flexion/ext. HEP also includes writing of name and squeezing putty. Frequency is 1 x per day, 10 reps. PMH: significant for RA; blood clots; depression; diabetes mellitus I; falls; depression; heart attack; pacemaker; neuropathy; R elbow surgery. - Subjective Identification Type Name Identification Reconciled With Medical Record Observations Sukh was seen 1:1 for OT treatment. Patient/Caregiver Compliance with Home Good Exercise Program Comments w/ family support - Objective Objective Measurements Please refer to below for progress towards meeting established OT goals. 05/16/20= avg 8.0 pounds of force w/ R personal care service provider dynamometer II testing. Short Term Goals 1. Sukh will be able to apply deodarant (g/h) on daily basis without physical assistance based on caregiver' s verbal report. 07/13/20= 50% met 2. Sukh will present with increased attention to right upper extremity, as well as increased functional incorporation of the right upper extremity; this will be evidenced by active incorporation of the right upper extremity/hand with stabilization of objects at tabletop (e.g., manipulation of personal mug) 3 to 4 times per week based on family report requiring no more than 1-2 verbal cues per occasion. 07/13/20= 25% met 3. 0-30 degrees active right shoulder flexion. 07/13/20= 50% met; 0-25 degrees GOALS MET Management of UB buttons w/ increased time on daily basis per family report. *MET Will avg 6.0# of force w/ R personal care service provider dynamometer II strength testing. *MET 05/16/20; avg 8# of force w/ personal care service provider Completes UB dressing with increased time without assist on daily basis (assist needed w/ bamboo buttons d/t surface and size of buttons). *MET 06/09 Group Home Goals 1. Sukh will be modified independent with execution of home exercise program (upper extremity and functional activities) with support of family utilizing provided written and visual instructions from therapist. = 50% met - Treatment 4 Descriptor Functional object manipulation /bimanual coordination. 3 Descriptor Scapular mobilization. PROM of shoulder. 2 Descriptor Tone Management. 1 Descriptor HEP/POC. Sukh was seen 1:1. Informed that therapist would be requesting rx from PCP for R UE sling. Exercises 9 Descriptor R UE strengthening. Modified scapular rows. 3# DB. 1 x 10. Towel. TT. Modified sh hor add. 3# DB. 1 x 10. Towel. TT. 7 Descriptor TT ROM. B sh flex towel. 1 x 10. B Sh hor abd/add. 1 x 10. B Sh abd. 1 x 10. R active sh add w/ towel. 1 x 10. R active sh ext w/ towel. 1 x 10. R active sh flex modified in tone pattern. 1 x 10. 5 Descriptor Elbow AROM. Facilitation by therapist. Elbow flex. 1 x 10. Elbow ext. 1 x 10. 4 Descriptor Digit/Hand strengthening exercises. Sustained personal care service provider tennis ball. x 5 sec. 1 x 10. Small cone w/ TB #4. x 5 sec hold. 1 x 10. Forearm pronated . Small cone w/ TB #4. x 5 sec hold. Min resistance. 45 degree angle from neutral. 1 x 10. - Assessment Assessment of Improvement Sukh has made progress over the last certification period relative to personal care service provider strength and functional abilities; this is evidenced by Sukh meeting goals in these areas. Sukh continues to require support to actively engage R UE in daily tasks, including with stabilization of objects. Introduced bimanual task to replicate meaningful activity; he was able to move ball around object w/ support and cueing. Sukh continues to benefit from visual cues w/ TT tasks. Recommend increasing number of activities w/ active engagement of R UE/hand; recommend exploring tasks that support self-directed initiation of participation. Sukh has a supportive family to help with carry-over of recommendations/overseeing completion of exercises. Outpatient OT is recommended to address personal care service provider strength, functional abilities, bimanual coordination, trunk/core (to support functional success/ caregiver support) and positioning of the R UE. Therapist to request rx from PCP for sling. Recommended activities: TT; mirror; personal care service provider/digit strengthening; bimanual tasks Home Exercise Program Please refer to treatment section of note for specific details. Reviewed with Patient/Caregiver Goals,Home Exercise Program Patient/Caregiver Understanding Good - Plan Therapy Recommendations Continue with Current Program, Advance per Rehabilitation Protocol Comment 12 weeks Frequency of Treatment Once a Week Therapeutic Contents Active Range of Motion, Adaptive Equipment Education, Client Education,Cognitive Skills Development,Home Exercise Program,Joint Protection,Manual Therapy, Education,Neurodevelopment Treatment,Neuromuscular Re- Education,Orthotic Fitting & Training,Self-Care,Splinting, Stretching/Flexibility Activities,Therapeutic Activities,Therapeutic Exercises,Modalities,Sensory Re-education Modalities As Needed,As Prescribed
--- NOTE | 2020-07-20 15:30 | OT.OP.TRT ---
Visit Care Team Role Provider Type Delfino Epstein MD Attending Provider Physician Primary Care Provider Specialty: Family Practice Address: [address] [place] [address], [id number] Email: [email or web address] Occupational Therapy Treatment Note OT Outpatient Treatment Note - Adult Start: 11/11/19 14:25 Freq: Status: Active Protocol: Document 07/20/20 15:30 AMS (Rec: 07/22/20 08:01 AMS [id number]) OT Outpatient Adult Treatment Note Session Time Visit Start Time 13:30 Visit Stop Time 14:15 Total Visit Minutes 45 Visit Information Plan of Care Dates 07/13/20-10/05/20 Insurance Information Uniform Medical Setting Treatment Setting Outpatient Care Visit Type Note Type Progress Note General Information General Information Patient is a 63 year-old male referred to outpatient OT by PCP; patient was accompanied to initial eval by . 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 He was recently hospitalized 06/22/19 d/t 3 falls that occurred on the same day. He was d/c and then re-hospitalized in August 2019. He was identified to have low sodium. Post hospitalization patient had Home Health OT; Home Health HEP was designed as follows: shoulder flex; sh abd; sh hor abd; wrist ext; positioning of hand/wrist on towel; PROM of digits of L hand; passive elbow flexion/ext. HEP also includes writing of name and squeezing putty. Frequency is 1 x per day, 10 reps. PMH: significant for RA; blood clots; depression; diabetes mellitus I; falls; depression; heart attack; pacemaker; neuropathy; R elbow surgery. - Subjective Identification Type Name Identification Reconciled With Medical Record Observations Sukh was seen 1:1 for OT treatment. Patient/Caregiver Compliance with Home Good Exercise Program Comments w/ family support - Objective Objective Measurements Please refer to below for progress towards meeting established OT goals. 05/16/20= avg 8.0 pounds of force w/ R student services vice president dynamometer II testing. Short Term Goals 1. Sukh will be able to apply deodarant (g/h) on daily basis without physical assistance based on caregiver' s verbal report. 07/13/20= 50% met 2. Sukh will present with increased attention to right upper extremity, as well as increased functional incorporation of the right upper extremity; this will be evidenced by active incorporation of the right upper extremity/hand with stabilization of objects at tabletop (e.g., manipulation of personal mug) 3 to 4 times per week based on family report requiring no more than 1-2 verbal cues per occasion. 07/13/20= 25% met 3. 0-30 degrees active right shoulder flexion. 07/13/20= 50% met; 0-25 degrees GOALS MET Management of UB buttons w/ increased time on daily basis per family report. *MET Will avg 6.0# of force w/ R student services vice president dynamometer II strength testing. *MET 05/16/20; avg 8# of force w/ student services vice president Completes UB dressing with increased time without assist on daily basis (assist needed w/ bamboo buttons d/t surface and size of buttons). *MET 06/09 Senior Care Goals 1. Sukh will be modified independent with execution of home exercise program (upper extremity and functional activities) with support of family utilizing provided written and visual instructions from therapist. = 50% met - Treatment 4 Descriptor Functional object manipulation /bimanual coordination. Tube w/ ball. 3 Descriptor Scapular mobilization. PROM of shoulder. 2 Descriptor Tone Management. 1 Descriptor HEP/POC. Donned R randa sling for patient at size medium; too large for patient. Recommend trialing size small and will need to train family and caregivers on sling to support carry-over and/or determine if patient may be able to don self? (impaired motor planning noted; thus, given number of straps will likely have to train family member(s)). Exercises 9 Descriptor R UE strengthening. Modified scapular rows. 3# DB. 1 x 10. Towel. TT. Modified sh hor add. 3# DB. 1 x 10. Towel. TT. 7 Descriptor TT ROM. B sh flex towel. 1 x 10. B Sh hor abd/add. 1 x 10. B Sh abd. 1 x 10. R active sh add w/ towel. 1 x 10. R active sh ext w/ towel. 1 x 10. R active sh flex modified in tone pattern. 1 x 10. 5 Descriptor Elbow AROM. Facilitation by therapist. Elbow flex. 1 x 10. Elbow ext. 1 x 10. 4 Descriptor Digit/Hand strengthening exercises. Sustained student services vice president tennis ball. x 5 sec. 1 x 10. Small cone w/ TB #4. x 5 sec hold. 1 x 10. Forearm pronated . Small cone w/ TB #4. x 5 sec hold. Min resistance. 45 degree angle from neutral. 1 x 10. - Assessment Assessment of Improvement Donned R randa subluxation sling; medium size too large. Will obtain smaller size; will need to complete training and ensure that sling meets family/patient's needs/wants. No additional PT appointments scheduled at this time; recommend notifying patient's primary PT. Upgraded bimanual tasks to continue to support active incorporation of randa side in day-to-day life and support bimanual motor planning. Sukh has a supportive family to help with carry-over of recommendations/overseeing completion of exercises. Outpatient OT is recommended to address student services vice president strength, functional abilities, bimanual coordination, trunk/core (to support functional success/ caregiver support) and positioning of the R UE. Therapist to request rx from PCP for sling. Recommended activities: TT; mirror; student services vice president/digit strengthening; bimanual tasks Home Exercise Program Please refer to treatment section of note for specific details. Reviewed with Patient/Caregiver Goals,Home Exercise Program Patient/Caregiver Understanding Good - Plan Therapy Recommendations Continue with Current Program, Advance per Rehabilitation Protocol
--- NOTE | 2020-07-27 15:30 | OT.OP.TRT ---
Visit Care Team Role Provider Type Delfino Epstein MD Attending Provider Physician Primary Care Provider Specialty: Family Practice Address: [address] [place] [address], [id number] Email: [email or web address] Occupational Therapy Treatment Note OT Outpatient Treatment Note - Adult Start: 11/11/19 14:25 Freq: Status: Active Protocol: Document 07/27/20 15:30 AMS (Rec: 07/29/20 16:22 AMS [id number]) OT Outpatient Adult Treatment Note Session Time Visit Start Time 13:30 Visit Stop Time 14:15 Total Visit Minutes 45 Visit Information Plan of Care Dates 07/13/20-10/05/20 Insurance Information Uniform Medical Setting Treatment Setting Outpatient Care Visit Type Note Type Treatment Note General Information General Information Patient is a 63 year-old male referred to outpatient OT by PCP; patient was accompanied to initial eval by . 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 He was recently hospitalized 06/22/19 d/t 3 falls that occurred on the same day. He was d/c and then re-hospitalized in August 2019. He was identified to have low sodium. Post hospitalization patient had Home Health OT; Home Health HEP was designed as follows: shoulder flex; sh abd; sh hor abd; wrist ext; positioning of hand/wrist on towel; PROM of digits of L hand; passive elbow flexion/ext. HEP also includes writing of name and squeezing putty. Frequency is 1 x per day, 10 reps. PMH: significant for RA; blood clots; depression; diabetes mellitus I; falls; depression; heart attack; pacemaker; neuropathy; R elbow surgery. - Subjective Identification Type Name Identification Reconciled With Medical Record Observations Sukh was accompanied by his , Felicity, to OT treatment session. Patient/Caregiver Compliance with Home Good Exercise Program Comment w/ family support - Objective Objective Measurements Please refer to below for progress towards meeting established OT goals. 05/16/20= avg 8.0 pounds of force w/ R rectification printer dynamometer II testing. Short Term Goals 1. Sukh will be able to apply deodarant (g/h) on daily basis without physical assistance based on caregiver' s verbal report. 07/13/20= 50% met 2. Sukh will present with increased attention to right upper extremity, as well as increased functional incorporation of the right upper extremity; this will be evidenced by active incorporation of the right upper extremity/hand with stabilization of objects at tabletop (e.g., manipulation of personal mug) 3 to 4 times per week based on family report requiring no more than 1-2 verbal cues per occasion. 07/13/20= 25% met 3. 0-30 degrees active right shoulder flexion. 07/13/20= 50% met; 0-25 degrees GOALS MET Management of UB buttons w/ increased time on daily basis per family report. *MET Will avg 6.0# of force w/ R rectification printer dynamometer II strength testing. *MET 05/16/20; avg 8# of force w/ rectification printer Completes UB dressing with increased time without assist on daily basis (assist needed w/ bamboo buttons d/t surface and size of buttons). *MET 06/09 Mcfp Goals 1. Sukh will be modified independent with execution of home exercise program (upper extremity and functional activities) with support of family utilizing provided written and visual instructions from therapist. = 50% met - Treatment 4 Descriptor Functional object manipulation /bimanual coordination. Tube w/ ball. 3 Descriptor Scapular mobilization. PROM of shoulder. 2 Descriptor Tone Management. 1 Descriptor HEP/POC. Exercises 9 Descriptor R UE strengthening. Modified scapular rows. 3# DB. 1 x 10. Towel. TT. Modified sh hor add. 3# DB. 1 x 10. Towel. TT. 7 Descriptor TT ROM. B sh flex towel. 1 x 10. B Sh hor abd/add. 1 x 10. B Sh abd. 1 x 10. R active sh add w/ towel. 1 x 10. R active sh ext w/ towel. 1 x 10. R active sh flex modified in tone pattern. 1 x 10. 5 Descriptor Elbow AROM. Facilitation by therapist. Elbow flex. 1 x 10. Elbow ext. 1 x 10. 4 Descriptor Digit/Hand strengthening exercises. Sustained rectification printer tennis ball. Large ball. x 5 sec. 1 x 10. Small cone w/ TB #4. x 5 sec hold. 1 x 10. Forearm pronated . Small cone w/ TB #4. x 5 sec hold. Min resistance. 45 degree angle from neutral. 1 x 10. Dowel x 1 80% cycle w/ 2# DB; x 3 cycles without weight. - Assessment Assessment of Improvement Upgraded bimanual task w/ use of dowel w/ weight to support active stabilization of non- dominant hand. Upgraded to larger ball w/ sustained grasp . Reviewed current/recent upgraded exercises/activities in session w/ Sukh's Dieyvonne. Informed that small sling had been ordered and are awaiting delivery. Based on 3 visits left on auth, will need to monitor delivery date of sling and need to continue services versus transition to HEP w/ current recommendations based on progress and feedback from patient and his . Sukh has a supportive family to help with carry-over of recommendations/overseeing completion of exercises. Outpatient OT is recommended to address rectification printer strength, functional abilities, bimanual coordination, trunk/core (to support functional success/ caregiver support) and positioning of the R UE. Therapist to request rx from PCP for sling. Recommended activities: TT; mirror; rectification printer/digit strengthening; bimanual tasks Home Exercise Program Please refer to treatment section of note for specific details. Reviewed with Patient/Caregiver Goals,Home Exercise Program - Plan Therapy Recommendations Continue with Current Program, Advance per Rehabilitation Protocol
--- NOTE | 2020-08-03 15:30 | OT.OP.TRT ---
Visit Care Team Role Provider Type Delfino Epstein MD Attending Provider Physician Primary Care Provider Specialty: Family Practice Address: [address] [place] [address], [address] Email: [email or web address] Occupational Therapy Treatment Note OT Outpatient Treatment Note - Adult Start: 11/11/19 14:25 Freq: Status: Active Protocol: Document 08/03/20 15:30 AMS (Rec: 08/04/20 12:16 AMS [id number]) OT Outpatient Adult Treatment Note Session Time Visit Start Time 13:30 Visit Stop Time 14:15 Total Visit Minutes 45 Visit Information Plan of Care Dates 07/13/20-10/05/20 Insurance Information Uniform Medical Setting Treatment Setting Outpatient Care Visit Type Note Type Treatment Note General Information General Information Patient is a 64 year-old male referred to outpatient OT by PCP; patient was accompanied to initial eval by . 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 He was recently hospitalized 06/22/19 d/t 3 falls that occurred on the same day. He was d/c and then re-hospitalized in August 2019. He was identified to have low sodium. Post hospitalization patient had Home Health OT; Home Health HEP was designed as follows: shoulder flex; sh abd; sh hor abd; wrist ext; positioning of hand/wrist on towel; PROM of digits of L hand; passive elbow flexion/ext. HEP also includes writing of name and squeezing putty. Frequency is 1 x per day, 10 reps. PMH: significant for RA; blood clots; depression; diabetes mellitus I; falls; depression; heart attack; pacemaker; neuropathy; R elbow surgery. - Subjective Identification Type Name Identification Reconciled With Medical Record Observations Sukh was accompanied by his , Felicity, to OT treatment session. Patient/Caregiver Compliance with Home Good Exercise Program Comment w/ family support - Objective Objective Measurements Please refer to below for progress towards meeting established OT goals. 05/16/20= avg 8.0 pounds of force w/ R back grinder dynamometer II testing. Short Term Goals 1. Sukh will be able to apply deodarant (g/h) on daily basis without physical assistance based on caregiver' s verbal report. 07/13/20= 50% met 2. Sukh will present with increased attention to right upper extremity, as well as increased functional incorporation of the right upper extremity; this will be evidenced by active incorporation of the right upper extremity/hand with stabilization of objects at tabletop (e.g., manipulation of personal mug) 3 to 4 times per week based on family report requiring no more than 1-2 verbal cues per occasion. 08/03/20= 25% met 3. 0-30 degrees active right shoulder flexion. 07/13/20= 50% met; 0-25 degrees GOALS MET Management of UB buttons w/ increased time on daily basis per family report. *MET Will avg 6.0# of force w/ R back grinder dynamometer II strength testing. *MET 05/16/20; avg 8# of force w/ back grinder Completes UB dressing with increased time without assist on daily basis (assist needed w/ bamboo buttons d/t surface and size of buttons). *MET 06/09 Director Clinical Operations Goals 1. Sukh will be modified independent with execution of home exercise program (upper extremity and functional activities) with support of family utilizing provided written and visual instructions from therapist. = 50% met - Treatment 4 Descriptor Functional object manipulation /bimanual coordination. Modified mini golf. Seated. 3 Descriptor Scapular mobilization. PROM of shoulder. 2 Descriptor Tone Management. 1 Descriptor HEP/POC. Diele was present throughout treatment session. Informed that aide has assisted therapist w/ following-up w/ hospital associated DME provider re: smaller sling for patient. Discussed possibility of spreading out visits left on auth based on arrival of sling . Recommended carry-over of golf based activity given that Sukh engaged in this activity previously and materials are available in the home; discussed need for support for placement of ' practice' golf ball on floor and retrieval after swing. Diele and Sukh denied questions. Exercises 9 Descriptor R UE strengthening. Modified scapular rows. 3# DB. 1 x 10. Towel. TT. Modified sh hor add. 3# DB. 1 x 10. Towel. TT. 7 Descriptor TT ROM. B sh flex towel. 1 x 10. B Sh hor abd/add. 1 x 10. B Sh abd. 1 x 10. R active sh add w/ towel. 1 x 10. R active sh ext w/ towel. 1 x 10. 5 Descriptor Elbow AROM. Facilitation by therapist. Elbow flex. 1 x 10. Elbow ext. 1 x 10. 4 Descriptor Digit/Hand strengthening exercises. Sustained back grinder ball. Large ball. x 5 sec. 1 x 10. Small cone w/ TB #5. x 5 sec hold. 1 x 10. Forearm pronated . Small cone w/ TB #5. x 5 sec hold. Min resistance. 45 degree angle from neutral. 1 x 10. N/A 9/30/20 Dowel x 1 80% cycle w/ 2# DB; x 3 cycles without weight. - Assessment Assessment of Improvement Increased resistance w/ theraband back grinder activities; introduced modified miniature golf sitting to support bimanual incorporation of R UE in meaningful activities. Based on 2 visits left on auth , will need to continue to monitor delivery date of sling , auth insurance visits, and independence w/ execution of HEP w/ support of family. Sukh has a supportive family to help with carry-over of recommendations/overseeing completion of exercises. Outpatient OT is recommended to address back grinder strength, functional abilities, bimanual coordination, and positioning of the R UE. Home Exercise Program Please refer to treatment section of note for specific details. Reviewed with Patient/Caregiver Goals,Home Exercise Program - Plan Additional Therapy Recommendations Transition to HEP as able; monitor visits/sling arrival
--- NOTE | 2020-08-10 15:30 | OT.OP.TRT ---
Visit Care Team Role Provider Type Delfino Epstein MD Attending Provider Physician Primary Care Provider Specialty: Family Practice Address: [address] [place] [address], [address] Email: [email or web address] Occupational Therapy Treatment Note OT Outpatient Treatment Note - Adult Start: 11/11/19 14:25 Freq: Status: Active Protocol: Document 08/10/20 15:30 AMS (Rec: 08/12/20 08:28 AMS [id number]) OT Outpatient Adult Treatment Note Session Time Visit Start Time 13:30 Visit Stop Time 14:15 Total Visit Minutes 45 Visit Information Plan of Care Dates 07/13/20-10/05/20 Insurance Information Uniform Medical Setting Treatment Setting Outpatient Care Visit Type Note Type Treatment Note General Information General Information Patient is a 64 year-old male referred to outpatient OT by PCP; patient was accompanied to initial eval by . 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 He was recently hospitalized 06/22/19 d/t 3 falls that occurred on the same day. He was d/c and then re-hospitalized in August 2019. He was identified to have low sodium. Post hospitalization patient had Home Health OT; Home Health HEP was designed as follows: shoulder flex; sh abd; sh hor abd; wrist ext; positioning of hand/wrist on towel; PROM of digits of L hand; passive elbow flexion/ext. HEP also includes writing of name and squeezing putty. Frequency is 1 x per day, 10 reps. PMH: significant for RA; blood clots; depression; diabetes mellitus I; falls; depression; heart attack; pacemaker; neuropathy; R elbow surgery. - Subjective Identification Type Name Identification Reconciled With Medical Record Observations Sukh was seen 1:1 for OT treatment session. Patient/Caregiver Compliance with Home Good Exercise Program Comment w/ family support - Objective Objective Measurements Please refer to below for progress towards meeting established OT goals. 05/16/20= avg 8.0 pounds of force w/ R physician executive dynamometer II testing. Short Term Goals 1. Sukh will be able to apply deodarant (g/h) on daily basis without physical assistance based on caregiver' s verbal report. 08/10/20= 75% met 2. Sukh will present with increased attention to right upper extremity, as well as increased functional incorporation of the right upper extremity; this will be evidenced by active incorporation of the right upper extremity/hand with stabilization of objects at tabletop (e.g., manipulation of personal mug) 3 to 4 times per week based on family report requiring no more than 1-2 verbal cues per occasion. 08/03/20= 25% met 3. 0-30 degrees active right shoulder flexion. 07/13/20= 50% met; 0-25 degrees GOALS MET Management of UB buttons w/ increased time on daily basis per family report. *MET Will avg 6.0# of force w/ R physician executive dynamometer II strength testing. *MET 05/16/20; avg 8# of force w/ physician executive Completes UB dressing with increased time without assist on daily basis (assist needed w/ bamboo buttons d/t surface and size of buttons). *MET 06/09 0-30 degrees active right shoulder flexion. 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 Sukh will be modified independent with execution of home exercise program (upper extremity and functional activities) with support of family utilizing provided written and visual instructions from therapist. 08/10/20= 50% met - Treatment 4 Descriptor Functional object manipulation /bimanual coordination. Modified mini golf. Seated. 3 Descriptor Scapular mobilization. PROM of shoulder. 2 Descriptor Tone Management. 1 Descriptor HEP/POC. Will need to complete appropriate insurance paperwork and pursue sling that meets patient's needs. Exercises 9 Descriptor R UE strengthening. Modified scapular rows. 3# DB. 1 x 10. Towel. TT. Modified sh hor add. 3# DB. 1 x 10. Towel. TT. 7 Descriptor TT ROM. B sh flex towel. 1 x 10. B Sh hor abd/add. 1 x 10. B Sh abd. 1 x 10. R active sh add w/ towel. 1 x 10. R active sh ext w/ towel. 1 x 10. 4 Descriptor Digit/Hand strengthening exercises. Sustained physician executive ball. Large ball. x 5 sec. 1 x 10. Small cone w/ TB #5. x 5 sec hold. 1 x 10. Forearm pronated . Small cone w/ TB #5. x 5 sec hold. Min resistance. 45 degree angle from neutral. 1 x 10. N/A 30/20 Dowel x 1 80% cycle w/ 2# DB; x 3 cycles without weight. - Assessment Assessment of Improvement Sukh was seen 1:1 for OT; mini golf green had just been delivered based on information provided by daughter. Need to complete paperwork based on info received from outpatient clinic insurance verify rep; patient is unable to complete QuickDASH UE Outcome Measure. Sent QuickDASH UE form home w/ patient to have complete (as previously done for assessments). Smaller sling size is on route for delivery to outpatient clinic; will need to assess and determine if sling fits needs. Based on success w/ miniature golf, it is recommended that therapist explore/pursue additional meaningful activities w/ patient at this time. Sukh has a supportive family to help with carry-over of recommendations/overseeing completion of exercises. Outpatient OT is recommended to address physician executive strength, functional abilities, bimanual coordination, and positioning of the R UE. Home Exercise Program Please refer to treatment section of note for specific details. Reviewed with Patient/Caregiver Goals,Home Exercise Program - Plan Therapy Recommendations Continue with Current Program Additional Therapy Recommendations Request visits; sling needed
--- NOTE | 2020-09-01 15:59 | OT.OP.TRT ---
Visit Care Team Role Provider Type Delfino Epstein MD Attending Provider Physician Primary Care Provider Specialty: Family Practice Address: [address] [place] [address], [id number] Email: [email or web address] Occupational Therapy Treatment Note OT Outpatient Treatment Note - Adult Start: 11/11/19 14:25 Freq: Status: Active Protocol: Document 09/01/20 15:45 AMS (Rec: 09/01/20 15:59 AMS [id number]) OT Outpatient Adult Treatment Note Session Time Visit Start Time 12:30 Visit Stop Time 13:20 Total Visit Minutes 50 Visit Information Visit Number 11/09 Plan of Care Dates 07/13/20-10/05/20 Insurance Information Uniform Medical Setting Treatment Setting Outpatient Care Visit Type Note Type Treatment Note General Information General Information Patient is a 64 year-old male referred to outpatient OT by PCP; patient was accompanied to initial eval by . 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 Patient has been seen in outpatient clinic at [facility] for OT, PT, and TELEPHONE COLLECTOR. He was recently hospitalized 06/22/19 d/t 3 falls that occurred on the same day. He was d/c and then re-hospitalized in August 2019. He was identified to have low sodium. Post hospitalization patient had Home Health OT; Home Health HEP was designed as follows: shoulder flex; sh abd; sh hor abd; wrist ext; positioning of hand/wrist on towel; PROM of digits of L hand; passive elbow flexion/ext. HEP also includes writing of name and squeezing putty. Frequency is 1 x per day, 10 reps. PMH: significant for RA; blood clots; depression; diabetes mellitus I; falls; depression; heart attack; pacemaker; neuropathy; R elbow surgery. - Subjective Identification Type Name Identification Reconciled With Medical Record Observations Sukh's , Felicity, accompanied him to OT treatment session. Patient/Caregiver Compliance with Home Good Exercise Program Comment w/ family support - Objective Objective Measurements Please refer to below for progress towards meeting established OT goals. 05/16/20= avg 8.0 pounds of force w/ R internet designer dynamometer II testing. Short Term Goals 1. Sukh will be able to apply deodarant (g/h) on daily basis without physical assistance based on caregiver' s verbal report. 09/01/20= 75% met 2. Sukh will present with increased attention to right upper extremity, as well as increased functional incorporation of the right upper extremity; this will be evidenced by active incorporation of the right upper extremity/hand with stabilization of objects at tabletop (e.g., manipulation of personal mug) 3 to 4 times per week based on family report requiring no more than 1-2 verbal cues per occasion. 09/01/20= 25% met 3. 0-30 degrees active right shoulder flexion. 07/13/20= 50% met; 0-25 degrees GOALS MET Management of UB buttons w/ increased time on daily basis per family report. *MET Will avg 6.0# of force w/ R internet designer dynamometer II strength testing. *MET 05/16/20; avg 8# of force w/ internet designer Completes UB dressing with increased time without assist on daily basis (assist needed w/ bamboo buttons d/t surface and size of buttons). *MET 06/09 0-30 degrees active right shoulder flexion. *MET 08/10/20 ; 0-45 degrees Cnc Lathe Machine Operator Goals 1. Sukh will be modified independent with execution of home exercise program (upper extremity and functional activities) with support of family utilizing provided written and visual instructions from therapist. 09/01/20= 50% met - Treatment 4 Descriptor Functional object manipulation /bimanual coordination. Velcro catch 3 Descriptor Scapular mobilization. PROM of shoulder. 2 Descriptor Tone Management. 1 Descriptor HEP/POC. Howie sling provided; appropriate paperwork was completed. Provision of TB #5 for home utilization. Exercises 9 Descriptor R UE strengthening. Modified scapular rows. 3# DB. 1 x 10. Towel. TT. Modified sh hor add. 3# DB. 1 x 10. Towel. TT. 7 Descriptor TT ROM. B sh flex towel. 1 x 10. B Sh hor abd/add. 1 x 10. B Sh abd. 1 x 10. R active sh add w/ towel. 1 x 10. R active sh ext w/ towel. 1 x 10. 5 Descriptor Elbow AROM. Facilitation by therapist. Elbow flex. 1 x 10. Elbow ext. 1 x 10. 4 Descriptor Digit/Hand strengthening exercises. Small cone w/ TB #5 . x 5 sec hold. 1 x 10. Forearm pronated. Small cone w/ TB #5. x 5 sec hold. Min resistance. 45 degree angle from neutral. 1 x 10. Sustained internet designer ball. Large ball. x 5 sec. 1 x 10. N/A 9/ 30/20 Dowel x 1 80% cycle w/ 2 # DB; x 3 cycles without weight. - Assessment Assessment of Improvement Sukh's , Felicity, was present throughout treatment session. Patient was provided w/ R sling and paperwork was completed. Provided family w/ TB #5 to support carry-over; began to explore additional alternatives relative to meaningful activities given Sukh's interest (increased motivation observed w/ mini fred). Introduced velcro catch and discussed additional options such as badminton, tennis. Sukh has a supportive family to help with carry-over of recommendations/overseeing completion of exercises. Outpatient OT is recommended to address internet designer strength, functional abilities, bimanual coordination, and positioning of the R UE. Home Exercise Program Please refer to treatment section of note for specific details. Reviewed with Patient/Caregiver Goals,Home Exercise Program - Plan Therapy Recommendations Continue with Current Program, Advance per Rehabilitation Protocol
--- NOTE | 2020-09-09 15:30 | OT.OP.TRT ---
Visit Care Team Role Provider Type Delfino Epstein MD Attending Provider Physician Primary Care Provider Specialty: Family Practice Address: [address] [place] [address], [id number] Email: [email or web address] Occupational Therapy Treatment Note OT Outpatient Treatment Note - Adult Start: 11/11/19 14:25 Freq: Status: Active Protocol: Document 09/09/20 15:30 AMS (Rec: 09/11/20 11:30 AMS [id number]) OT Outpatient Adult Treatment Note Session Time Visit Start Time 10:40 Visit Stop Time 11:25 Total Visit Minutes 45 Visit Information Visit Number 12/10 Plan of Care Dates 07/13/20-10/05/20 Insurance Information Uniform Medical Setting Treatment Setting Outpatient Care Visit Type Note Type Treatment Note General Information General Information Patient is a 64 year-old male referred to outpatient OT by PCP; patient was accompanied to initial eval by . 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 Patient has been seen in outpatient clinic at 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 He was recently hospitalized 06/22/19 d/t 3 falls that occurred on the same day. He was d/c and then re-hospitalized in August 2019. He was identified to have low sodium. Post hospitalization patient had Home Health OT; Home Health HEP was designed as follows: shoulder flex; sh abd; sh hor abd; wrist ext; positioning of hand/wrist on towel; PROM of digits of L hand; passive elbow flexion/ext. HEP also includes writing of name and squeezing putty. Frequency is 1 x per day, 10 reps. PMH: significant for RA; blood clots; depression; diabetes mellitus I; falls; depression; heart attack; pacemaker; neuropathy; R elbow surgery. - Subjective Identification Type Name Identification Reconciled With Medical Record Observations Sukh's , Felicity, accompanied him to OT treatment session. Discussed difficulties w/ donning and doffing new R sling d/t elbow stiffness. Patient/Caregiver Compliance with Home Good Exercise Program Comment w/ family support - Objective Objective Measurements Please refer to below for progress towards meeting established OT goals. 05/16/20= avg 8.0 pounds of force w/ R detail technician dynamometer II testing. Short Term Goals 1. Sukh will be able to apply deodarant (g/h) on daily basis without physical assistance based on caregiver' s verbal report. 09/01/20= 75% met 2. Sukh will present with increased attention to right upper extremity, as well as increased functional incorporation of the right upper extremity; this will be evidenced by active incorporation of the right upper extremity/hand with stabilization of objects at tabletop (e.g., manipulation of personal mug) 3 to 4 times per week based on family report requiring no more than 1-2 verbal cues per occasion. 09/01/20= 25% met GOALS MET Management of UB buttons w/ increased time on daily basis per family report. *MET Will avg 6.0# of force w/ R detail technician dynamometer II strength testing. *MET 05/16/20; avg 8# of force w/ detail technician Completes UB dressing w/ increased time without A on daily basis (A w/ bamboo buttons). *MET 06/09/20 0-30 degrees active right shoulder flexion. *MET 08/10/20 ; 0-45 degrees Fdc Goals 1. Sukh will be modified independent with execution of home exercise program (upper extremity and functional activities) with support of family utilizing provided written and visual instructions from therapist. 09/09/20= 50% met - Treatment 4 Descriptor Functional object manipulation /bimanual coordination. Velcro catch. 3 Descriptor Scapular mobilization. PROM of shoulder. 2 Descriptor Tone Management. 1 Descriptor HEP/POC. Reviewed meaningful activities to support Sukh's active participation in meaningful activities. Exercises 9 Descriptor R UE strengthening. 3# DB on towel. B sh flex towel. 1 x 10. B Sh hor add/abd. 1 x 10. B Sh abd. 1 x 10. R sh ext. 1 x 10. Scapular row. 1 x 10. 7 Descriptor TT ROM. Warm-up B sh flex towel. 1 x 10. 4 Descriptor Digit/Hand strengthening exercises. Small cone w/ TB #5 . x 5 sec hold. 1 x 10. Forearm pronated. Small cone w/ TB #5. x 5 sec hold. Min resistance. 45 degree angle from neutral. 1 x 10. Dowel x 3# DB. Stabilization permitted/modified approach to exercise completion. - Assessment Assessment of Improvement Sukh's , [place], was present throughout treatment session. Felicity has recently invested in a variety of activities to support carry- over and Sukh's active participation; Sukh demonstrates increased interest and prolonged participation in exercises/ activities that are meaningful to him versus standard exercises. Sukh reportedly has been asking for new sling which Felicity indicates that it means that he likes it. Sukh has a supportive family to help with carry-over of recommendations/overseeing completion of exercises. Outpatient OT is recommended to address detail technician strength, functional abilities, bimanual coordination, and positioning of the R UE. Home Exercise Program Please refer to treatment section of note for specific details. Reviewed with Patient/Caregiver Goals,Home Exercise Program - Plan Therapy Recommendations Continue with Current Program, Advance per Rehabilitation Protocol
--- NOTE | 2020-09-12 13:30 | OT.OP.TRT ---
Visit Care Team Role Provider Type Delfino Epstein MD Attending Provider Physician Primary Care Provider Specialty: Family Practice Address: [address] [place] [address], [id number] Email: [email or web address] Occupational Therapy Treatment Note OT Outpatient Treatment Note - Adult Start: 11/11/19 14:25 Freq: Status: Active Protocol: Document 09/12/20 13:20 AMS (Rec: 09/12/20 13:30 AMS [id number]) OT Outpatient Adult Treatment Note Session Time Visit Start Time 12:30 Visit Stop Time 13:15 Total Visit Minutes 45 Visit Information Visit Number 01/07 Plan of Care Dates 07/13/20-10/05/20 Insurance Information Uniform Medical Setting Treatment Setting Outpatient Care Visit Type Note Type Treatment Note General Information General Information Patient is a 64 year-old male referred to outpatient OT by PCP; patient was accompanied to initial eval by . 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 He was recently hospitalized 06/22/19 d/t 3 falls that occurred on the same day. He was d/c and then re-hospitalized in August 2019. He was identified to have low sodium. Post hospitalization patient had Home Health OT; Home Health HEP was designed as follows: shoulder flex; sh abd; sh hor abd; wrist ext; positioning of hand/wrist on towel; PROM of digits of L hand; passive elbow flexion/ext. HEP also includes writing of name and squeezing putty. Frequency is 1 x per day, 10 reps. PMH: significant for RA; blood clots; depression; diabetes mellitus I; falls; depression; heart attack; pacemaker; neuropathy; R elbow surgery. - Subjective Identification Type Name Identification Reconciled With Medical Record Observations Sukh's , Felicity, accompanied him to OT treatment session. Patient/Caregiver Compliance with Home Good Exercise Program Comment w/ family support - Objective Objective Measurements Please refer to below for progress towards meeting established OT goals. 05/16/20= avg 8.0 pounds of force w/ R director global dynamometer II testing. Short Term Goals 1. Sukh will be able to apply deodarant (g/h) on daily basis without physical assistance based on caregiver' s verbal report. 09/01/20= 75% met 2. Sukh will present with increased attention to right upper extremity, as well as increased functional incorporation of the right upper extremity; this will be evidenced by active incorporation of the right upper extremity/hand with stabilization of objects at tabletop (e.g., manipulation of personal mug) 3 to 4 times per week based on family report requiring no more than 1-2 verbal cues per occasion. 09/01/20= 25% met GOALS MET Management of UB buttons w/ increased time on daily basis per family report. *MET Will avg 6.0# of force w/ R director global dynamometer II strength testing. *MET 05/16/20; avg 8# of force w/ director global Completes UB dressing w/ increased time without A on daily basis (A w/ bamboo buttons). *MET 06/09/20 0-30 degrees active right shoulder flexion. *MET 08/10/20 ; 0-45 degrees Mcc Goals 1. Sukh will be modified independent with execution of home exercise program (upper extremity and functional activities) with support of family utilizing provided written and visual instructions from therapist. 09/12/20= 50% met - Treatment 4 Descriptor Functional object manipulation /bimanual coordination. Velcro catch. 1# Cane Volleyball. Modified baseball w/ trunk rotation to the R ( balloon, 5-inch ball, 3 1/2- inch ball). Bucket 2-handed catch w/ bucket. 3 Descriptor Scapular mobilization. PROM of shoulder. 2 Descriptor Tone Management. 1 Descriptor HEP/POC. Reviewed meaningful activities to support Sukh's active participation in meaningful activities. Exercises 9 Descriptor R UE strengthening. 3# DB on towel. B sh flex towel. 1 x 10. B Sh hor add/abd. 1 x 10. B Sh abd. 1 x 10. R sh ext. 1 x 10. Scapular row. 1 x 10. 7 Descriptor TT ROM. Warm-up B sh flex towel. 2 x 10. 4 Descriptor Digit/Hand strengthening exercises. Small cone w/ TB #5 . x 5 sec hold. 1 x 10. Forearm pronated. Small cone w/ TB #5. x 5 sec hold. Min resistance. 45 degree angle from neutral. 1 x 10. Dowel x 3# DB. Stabilization permitted/modified approach to exercise completion. - Assessment Assessment of Improvement Sukh's , Felicity, was present throughout treatment session. Sukh is demonstrating improving activity tolerance, self- directed active engagement of the R UE w/ bimanual tasks and improving self-initiation/ functional problem solving. Felicity reported that he is now looking around in the kitchen for things for himself. This is also evidenced by therapist 's ability to incorporate additional activities within a treatment session. Sukh has a supportive family to help with carry-over of recommendations/overseeing completion of exercises. Outpatient OT is recommended to address director global strength, functional abilities, bimanual coordination, and positioning of the R UE. Home Exercise Program Please refer to treatment section of note for specific details. Reviewed with Patient/Caregiver Goals,Home Exercise Program - Plan Therapy Recommendations Continue with Current Program, Advance per Rehabilitation Protocol
--- NOTE | 2020-10-03 15:30 | OT.OPPN ---
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 (10/03/20) Weakness (10/03/20) Occupational Therapy Inpatient Evaluation/Re-Eval OT Outpatient Adult Evaluation Start: 11/11/19 14:25 Freq: Status: Active Protocol: Document 11/11/19 14:26 AMS (Rec: 11/11/19 15:03 AMS [email or web address]) General Information Session Time Visit Start Time 09:30 Visit Stop Time 10:15 Total Visit Minutes 45 Visit Information Visit Number 11/13 Plan of Care Dates 11/11/19-02/04/20 Insurance Information Uniform Medical Setting Treatment Setting Outpatient Care Visit Type Note Type Initial Evaluation Referral Referring Physician Dr. Epstein Identification Identification Confirmed Yes: Photo ID Previous Therapy Previous Therapy/Therapies Yes Therapy Pain Assessment Pain When Pain Assessed pre- treat Pain Present Pain Present Denied Pain Goals Objective Measurements Objective Measurements Decreased active ROM of R UE; increased focus of patient on passive/assist from non- affected UE. Avg 3 pounds of force w/ R meat seafood associate and 38 pounds of force w/ L meat seafood associate w/ dynamometer meat seafood associate II strength testing. -40 degrees passive elbow ext; -40 - 122 degrees passive elbow flex; 0-40 degrees passive sh ext; 0-40 degrees passive R sh flex; 0- 80 degrees passive R sh abd; 0 -5 degrees passive R forearm supination; WFL passive forearm pronation. Functional ADLS: Dependent w/ buttons; elastic shoe laces being utilized (however, still needs assist w/ R side d/t AFO); mod I w/ L sock; needs assist w/ R sock d/t it being a compression stockinette; assist w/ management of R sleeve/UB dressing and assist w/ LB dressing. Increased assist reported w/ g/h (e.g., donning deodarant on R side). PLOF based on 's report: able to manage UB dressing without assistance, including buttons utilizing 1 handed approach. Able to manage pants without assistance. able to apply deodarant without assist . Treatment Treatment Initiated HEP; recommended execution of scapular pinches to support scapular mobility and overall posture. Recommended positioning of UE out of typical randa pattern, including at knee and to the right of the body. Short Term Goals Short Term Goals 1. Sukh will be able to execute UB dressing (e.g., donning shirts) without physical assistance on a daily basis based on caregiver's verbal report. 2. Sukh will be able to manage buttons of UB clothing items (e.g., button-up shirt) without physical assistance on a daily basis based on caregiver's verbal report. 3. Sukh will be able to apply deodarant (g/h) on daily basis without physical assistance based on caregiver' s verbal report. 4. Sukh will average 6 pounds of force with right meat seafood associate dynamometer II strength testing to support non-verbal communication with brother via handshake. Prison Goals Prison Goals 1. Sukh will be modified independent with execution of home exercise program (upper extremity and functional activities) with support of family utilizing provided written and visual instructions from therapist. Assessment/Plan Assessment Patient Response Good Rehabilitation Potential Fair Treatment Assessment Patient is a 63 year-old male referred to outpatient OT by PCP; patient was accompanied to initial eval by . 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 He was recently hospitalized 06/22/19 d/t 3 falls that occurred on the same day. He was d/c and then re-hospitalized in August 2019. He was identified to have low sodium. Post hospitalization patient had Home Health OT; Home Health HEP was designed as follows: shoulder flex; sh abd; sh hor abd; wrist ext; positioning of hand/wrist on towel; PROM of digits of L hand; passive elbow flexion/ext. HEP also includes writing of name and squeezing putty. Frequency is 1 x per day, 10 reps. PMH: significant for RA; blood clots; depression; diabetes mellitus I; falls; depression; heart attack; pacemaker; neuropathy; R elbow surgery. Goals: increase functional independence to PLOF; increase functional core strength; increase attention to R UE Evaluation findings: Ambulates w/ large base quad cane and AFO; decreased trunk/ core strength; decreased orientation to midline; impaired posture; neglect of right side; increased tone of UE; decreased active ROM of UE ; decreased meat seafood associate strength; impaired cognition; fatigue; decreased endurance; decreased functional independence; impaired balance. Outpatient OT is recommended at this time to maximize patient's functional independence relative to PLOF and address positioning of UE, as well as active range of motion/meat seafood associate strength to support functional dressing, et cetera. Home Exercise Program Please refer to treatment section of note for specific details. Reviewed with Patient Goals,Home Exercise Program Plan Comment 12 weeks Treatment Frequency Once a Week Therapeutic Contents Active Range of Motion, Adaptive Equipment Education, Client Education,Cognitive Skills Development,Functional Activities,Home Exercise Program,Joint Protection, Manual Therapy,Education, Neurodevelopment Treatment, Neuromuscular Re-Education, Self-Care,Stretching/ Flexibility Activities, Therapeutic Activities, Therapeutic Exercises, Modalities,Sensory Re- education Types of Modalities Contrast Bath,E-Stim, Functional Stimulation (FES), Ice Massage,T.E.N. Stimulation ,TENS Placement/Application, Ultrasound,Other Additional Types of Modalities Paraffin bath/Heat Patient Instruction Home Exercise Program,Plan of Care,Questions/Concerns,Other Sensory Assessment Sensory Profile2 Functional Wrist/Hand Scan Hand Side OT Outpatient Treatment Note - Adult Start: 11/11/19 14:25 Freq: Status: Active Protocol: Document 10/03/20 15:30 AMS (Rec: 10/04/20 14:19 AMS [id number]) OT Outpatient Adult Treatment Note Session Time Visit Start Time 12:30 Visit Stop Time 13:15 Visit Information Visit Number 4/6 Plan of Care Dates 10/03/20-11/28/20 Insurance Information Uniform Medical Setting Treatment Setting Outpatient Care Visit Type Note Type Progress Note General Information General Information Patient is a 64 year-old male referred to outpatient OT by PCP; patient was accompanied to initial eval by . 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 He was recently hospitalized 06/22/19 d/t 3 falls that occurred on the same day. He was d/c and then re-hospitalized in August 2019. He was identified to have low sodium. Post hospitalization patient had Home Health OT; Home Health HEP was designed as follows: shoulder flex; sh abd; sh hor abd; wrist ext; positioning of hand/wrist on towel; PROM of digits of L hand; passive elbow flexion/ext. HEP also includes writing of name and squeezing putty. Frequency is 1 x per day, 10 reps. PMH: significant for RA; blood clots; depression; diabetes mellitus I; falls; depression; heart attack; pacemaker; neuropathy; R elbow surgery. - Subjective Identification Type Name Identification Reconciled With Medical Record Observations Sukh's , Felicity, accompanied him to OT treatment session. Patient/Caregiver Compliance with Home Good Exercise Program Comment w/ family support - Objective Objective Measurements Please refer to below for progress towards meeting established OT goals. 05/16/20= avg 8.0 pounds of force w/ R meat seafood associate dynamometer II testing. Short Term Goals 1. Sukh will be able to apply deodarant (g/h) on daily basis without physical assistance based on caregiver' s verbal report. 10/03/20= 75% met 2. Sukh will present with increased attention to right upper extremity, as well as increased functional incorporation of the right upper extremity; this will be evidenced by active incorporation of the right upper extremity/hand with stabilization of objects at tabletop (e.g., manipulation of personal mug) 3 to 4 times per week based on family report requiring no more than 1-2 verbal cues per occasion. 10/03/20= 50% met GOALS MET Management of UB buttons w/ increased time on daily basis per family report. *MET Will avg 6.0# of force w/ R meat seafood associate dynamometer II strength testing. *MET 05/16/20; avg 8# of force w/ meat seafood associate Completes UB dressing w/ increased time without A on daily basis (A w/ bamboo buttons). *MET 06/09/20 0-30 degrees active right shoulder flexion. *MET 08/10/20 ; 0-45 degrees Prison Goals 1. Sukh will be modified independent with execution of home exercise program (upper extremity and functional activities) with support of family utilizing provided written and visual instructions from therapist. 10/03/20= 75% met - Treatment 4 Descriptor Functional object manipulation /bimanual coordination. 1# Cane Volleyball. Modified baseball w/ trunk rotation to the R (balloon, 5-inch ball, 3 1/2-inch ball). Bucket 2- handed catch w/ bucket. 3 Descriptor Scapular mobilization. PROM of shoulder. 2 Descriptor Tone Management. 1 Descriptor HEP/POC. Sukh was seen 1:1 for outpatient OT; a family member did not accompany him to the OT treatment session. Exercises 9 Descriptor R UE strengthening. 3# DB on towel. B sh flex towel. 1 x 10. B Sh hor add/abd. 1 x 10. B Sh abd. 1 x 10. R sh ext. 1 x 10. Scapular row. 1 x 10. 7 Descriptor TT ROM. Warm-up B sh flex towel. 2 x 10. - Assessment Assessment of Improvement Sukh has made progress over the last certification period relative to active shoulder flexion; this is evidenced by Sukh meeting short term goal in this area. Therapist was also able to identify alternative shoulder subluxation sling to previously utilized [employer] based on patient/family feedback; per , Sukh has been actively requesting sling to wear (therapist has seen patient wearing sling last x 2 treatment sessions). Sukh was not accompanied by a family member to today's treatment session and small gap occurred w/ holiday and testing (Sukh was previously seen in outpatient setting on 09/12/20) thus, therapist was unable to have QuickDASH completed and/or inquire about functional abilities. Sukh overall, has been demonstrating improving activity tolerance, self- directed active engagement of the R UE, and improving self- initiation/functional problem solving with engagement in functional tasks. This is evidenced by Felicity's previous report that Sukh is now looking around in the kitchen for things for himself. Sukh has a supportive family to help with carry-over of recommendations/overseeing completion of exercises. Continued outpatient OT is recommended to determine if additional progress can be made toward functional incorporation of R UE, attention to R UE/R side of space, and ROM/strength of R UE. Home Exercise Program Please refer to treatment section of note for specific details. Reviewed with Patient/Caregiver Goals,Home Exercise Program - Plan Therapy Recommendations Advance per Rehabilitation Protocol Comment 8 weeks Frequency of Treatment Once a Week Therapeutic Contents Active Range of Motion, Adaptive Equipment Education, Client Education,Cognitive Skills Development,Functional Activities,Home Exercise Program,Joint Protection, Manual Therapy,Education, Neurodevelopment Treatment, Neuromuscular Re-Education, Self-Care,Stretching/ Flexibility Activities, Therapeutic Activities, Therapeutic Exercises, Modalities Modalities As Needed,As Prescribed
--- NOTE | 2020-10-18 09:09 | OT.OP.TRT ---
Visit Care Team Role Provider Type Delfino Epstein MD Attending Provider Physician Primary Care Provider Specialty: Family Practice Address: [address] [place] [address], [id number] Email: [email or web address] Occupational Therapy Treatment Note OT Outpatient Treatment Note - Adult Start: 11/11/19 14:25 Freq: Status: Active Protocol: Document 10/18/20 09:05 [facility] (Rec: 10/18/20 09:08 [facility] [id number]) OT Outpatient Adult Treatment Note Session Time Visit Start Time 09:05 Setting Treatment Setting Outpatient Care Visit Type Note Type Administrative Note - Subjective Observations Therapist contacted Sukh Blevins's , via telephone re: insurance authorization/ denial. Felicity indicated over- the-telephone that she had received a letter in the mail recently from the insurance that indicated that additional OT visits had been authorized . Therapist encouraged Felicity to contact home insurance agent to further discuss this matter and/or bring in letter to support scheduling of additional visits. Therapist to follow-up as appropriate. - - - -
--- NOTE | 2020-12-05 10:51 | OT.OP.DC ---
Visit Care Team Role Provider Type Delfino Epstein MD Attending Provider Physician Primary Care Provider Address: [address] [place] [address], [id number] Email: [email or web address] Outpatient OT Outpatient Adult Evaluation Start: 11/11/19 14:25 Freq: Status: Active Protocol: Document 11/11/19 14:26 AMS (Rec: 11/11/19 15:03 AMS [id number]) General Information Session Time Visit Start Time 09:30 Visit Stop Time 10:15 Total Visit Minutes 45 Visit Information Visit Number 11/13 Plan of Care Dates 11/11/19-02/04/20 Insurance Information Uniform Medical Setting Treatment Setting Outpatient Care Visit Type Note Type Initial Evaluation Referral Referring Physician Dr. Epstein Identification Identification Confirmed Yes: Photo ID Previous Therapy Previous Therapy/Therapies Yes Therapy Pain Assessment Pain When Pain Assessed pre- treat Pain Present Pain Present Denied Pain Goals Objective Measurements Objective Measurements Decreased active ROM of R UE; increased focus of patient on passive/assist from non- affected UE. Avg 3 pounds of force w/ R cake decorator and 38 pounds of force w/ L cake decorator w/ dynamometer cake decorator II strength testing. -40 degrees passive elbow ext; -40 - 122 degrees passive elbow flex; 0-40 degrees passive sh ext; 0-40 degrees passive R sh flex; 0- 80 degrees passive R sh abd; 0 -5 degrees passive R forearm supination; WFL passive forearm pronation. Functional ADLS: Dependent w/ buttons; elastic shoe laces being utilized (however, still needs assist w/ R side d/t AFO); mod I w/ L sock; needs assist w/ R sock d/t it being a compression stockinette; assist w/ management of R sleeve/UB dressing and assist w/ LB dressing. Increased assist reported w/ g/h (e.g., donning deodarant on R side). PLOF based on 's report: able to manage UB dressing without assistance, including buttons utilizing 1 handed approach. Able to manage pants without assistance. able to apply deodarant without assist . Treatment Treatment Initiated HEP; recommended execution of scapular pinches to support scapular mobility and overall posture. Recommended positioning of UE out of typical randa pattern, including at knee and to the right of the body. Short Term Goals Short Term Goals 1. Sukh will be able to execute UB dressing (e.g., donning shirts) without physical assistance on a daily basis based on caregiver's verbal report. 2. Sukh will be able to manage buttons of UB clothing items (e.g., button-up shirt) without physical assistance on a daily basis based on caregiver's verbal report. 3. Sukh will be able to apply deodarant (g/h) on daily basis without physical assistance based on caregiver' s verbal report. 4. Sukh will average 6 pounds of force with right cake decorator dynamometer II strength testing to support non-verbal communication with brother via handshake. Vibrating Screed Operator Goals Assisted Goals 1. Sukh will be modified independent with execution of home exercise program (upper extremity and functional activities) with support of family utilizing provided written and visual instructions from therapist. Assessment/Plan Assessment Patient Response Good Rehabilitation Potential Fair Treatment Assessment Patient is a 63 year-old male referred to outpatient OT by PCP; patient was accompanied to initial eval by . 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 Patient has been seen in outpatient clinic at [facility] for OT, PT, and BELT PUNCHER. He was recently hospitalized 06/22/19 d/t 3 falls that occurred on the same day. He was d/c and then re-hospitalized in August 2019. He was identified to have low sodium. Post hospitalization patient had Home Health OT; Home Health HEP was designed as follows: shoulder flex; sh abd; sh hor abd; wrist ext; positioning of hand/wrist on towel; PROM of digits of L hand; passive elbow flexion/ext. HEP also includes writing of name and squeezing putty. Frequency is 1 x per day, 10 reps. PMH: significant for RA; blood clots; depression; diabetes mellitus I; falls; depression; heart attack; pacemaker; neuropathy; R elbow surgery. Goals: increase functional independence to PLOF; increase functional core strength; increase attention to R UE Evaluation findings: Ambulates w/ large base quad cane and AFO; decreased trunk/ core strength; decreased orientation to midline; impaired posture; neglect of right side; increased tone of UE; decreased active ROM of UE ; decreased cake decorator strength; impaired cognition; fatigue; decreased endurance; decreased functional independence; impaired balance. Outpatient OT is recommended at this time to maximize patient's functional independence relative to PLOF and address positioning of UE, as well as active range of motion/cake decorator strength to support functional dressing, et cetera. Home Exercise Program Please refer to treatment section of note for specific details. Reviewed with Patient Goals,Home Exercise Program Plan Comment 12 weeks Treatment Frequency Once a Week Therapeutic Contents Active Range of Motion, Adaptive Equipment Education, Client Education,Cognitive Skills Development,Functional Activities,Home Exercise Program,Joint Protection, Manual Therapy,Education, Neurodevelopment Treatment, Neuromuscular Re-Education, Self-Care,Stretching/ Flexibility Activities, Therapeutic Activities, Therapeutic Exercises, Modalities,Sensory Re- education Types of Modalities Contrast Bath,E-Stim, Functional Stimulation (FES), Ice Massage,T.E.N. Stimulation ,TENS Placement/Application, Ultrasound,Other Additional Types of Modalities Paraffin bath/Heat Patient Instruction Home Exercise Program,Plan of Care,Questions/Concerns,Other Sensory Assessment Sensory Profile2 Functional Wrist/Hand Scan Hand Side OT Outpatient Range of Motion Start: 11/11/19 14:25 Freq: Status: Active Protocol: Document 10/03/20 15:30 AMS (Rec: 10/04/20 14:19 AMS [id number]) ROM - Shoulder Shoulder Left Shoulder ROM WFL Yes Right Active Shoulder ROM WFL No Shoulder Flex AROM (degrees) 0-45 Query Text: Shoulder Flex PROM (degrees) 0-90 Query Text: Shoulder Ext AROM (degrees) 0-25 Shoulder Ext PROM (degrees) 0-40 Shoulder Abd AROM (degrees) 0-10 Shoulder Abd PROM (degrees) 0-60 Shoulder ER AROM (degrees) 0-0 Shoulder ER PROM (degrees) 0-60 Comments 08/10/20 Measurements 04/20/20= 0-20 sh flex AROM 0-90 sh flex PROM 0-10 sh ext AROM 0-40 sh ext PROM 0-5 sh abd AROM 0-60 sh abd PROM 0-0 sh ER AROM 0-60 sh ER PROM Previous measurements: 0-35 sh flex AROM 0-90 sh flex PROM 0-10 sh ext AROM 0-40 sh ext PROM 0-0 sh abd AROM 0-60 sh abd PROM ROM - Elbow/Forearm Elbow/Forearm Measured in Degrees Left Elbow/Forearm ROM WFL Yes Right Elbow/Forearm ROM WFL No Elbow Flex AROM (degrees) -45-110 Elbow Flex PROM (degrees) -45-135 Elbow Ext AROM (degrees) 35 Elbow Ext PROM (degrees) -45-135 Forearm Pron AROM (degrees) Full Forearm Sup AROM (degrees) 0 Forearm Sup PROM (degrees) Did not tolerate Comments 08/10/20 ROM Measurements ROM - Wrist Wrist Range of Motion Measured in Degrees Left Wrist ROM WFL Yes Right Wrist ROM WFL No OT Outpatient Treatment Note - Adult Start: 11/11/19 14:25 Freq: Status: Active Protocol: Document 12/05/20 10:49 AMS (Rec: 12/05/20 10:51 AMS [id number]) OT Outpatient Adult Treatment Note Visit Information Visit Number 4/ Plan of Care Dates 10/03/20-11/28/20 Insurance Information Uniform Medical Setting Treatment Setting Outpatient Care Visit Type Note Type Discharge Summary General Information General Information Patient is a 64 year-old male referred to outpatient OT by PCP; patient was accompanied to initial eval by . 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 Patient has been seen in outpatient clinic at [facility] for OT, PT, and BELT PUNCHER. He was recently hospitalized 06/22/19 d/t 3 falls that occurred on the same day. He was d/c and then re-hospitalized in August 2019. He was identified to have low sodium. Post hospitalization patient had Home Health OT; Home Health HEP was designed as follows: shoulder flex; sh abd; sh hor abd; wrist ext; positioning of hand/wrist on towel; PROM of digits of L hand; passive elbow flexion/ext. HEP also includes writing of name and squeezing putty. Frequency is 1 x per day, 10 reps. PMH: significant for RA; blood clots; depression; diabetes mellitus I; falls; depression; heart attack; pacemaker; neuropathy; R elbow surgery. - Subjective Observations Given that Sukh has not been seen by OT in the past 30 days (10/03/2020) and his outpatient OT POC on , it is recommended that Sukh be d/c from OT at this time. Recommend that therapist re-evaluate as deemed appropriate by PCP. - Objective Objective Measurements Please refer to below for progress towards meeting established OT goals. 05/16/20= avg 8.0 pounds of force w/ R cake decorator dynamometer II testing. Short Term Goals 1. Sukh will be able to apply deodarant (g/h) on daily basis without physical assistance based on caregiver' s verbal report. 10/03/20= 75% met 2. Sukh will present with increased attention to right upper extremity, as well as increased functional incorporation of the right upper extremity; this will be evidenced by active incorporation of the right upper extremity/hand with stabilization of objects at tabletop (e.g., manipulation of personal mug) 3 to 4 times per week based on family report requiring no more than 1-2 verbal cues per occasion. 10/03/20= 50% met GOALS MET Management of UB buttons w/ increased time on daily basis per family report. *MET Will avg 6.0# of force w/ R cake decorator dynamometer II strength testing. *MET 05/16/20; avg 8# of force w/ cake decorator Completes UB dressing w/ increased time without A on daily basis (A w/ bamboo buttons). *MET 06/09/20 0-30 degrees active right shoulder flexion. *MET 08/10/20 ; 0-45 degrees D/C 12/05/20 1. Sukh will be able to apply deodarant (g/h) on daily basis without physical assistance based on caregiver' s verbal report. 10/03/20= 75% met 2. Sukh will present with increased attention to right upper extremity, as well as increased functional incorporation of the right upper extremity; this will be evidenced by active incorporation of the right upper extremity/hand with stabilization of objects at tabletop (e.g., manipulation of personal mug) 3 to 4 times per week based on family report requiring no more than 1-2 verbal cues per occasion. 10/03/20= 50% met Assisted Goals D/C 12/05/20 1. Sukh will be modified independent with execution of home exercise program (upper extremity and functional activities) with support of family utilizing provided written and visual instructions from therapist. 10/03/20= 75% met - - Assessment Assessment of Improvement Given that Sukh has not been seen by OT in the past 30 days (10/03/2020) and his outpatient OT POC on , it is recommended that Sukh be d/c from OT at this time. Recommend that therapist re-evaluate as deemed appropriate by PCP. - Plan Therapy Recommendations Discharge from Occupational Therapy
== END 2020-12-09 14:01 ==
LOC: OT 12:30
PROVIDERS: PCP Family Medicine; Visit Provider Family Medicine
DX: R53.1 Weakness (principal); I69.359 Hemiplegia and hemiparesis following cerebral infarction affecting unspecified side
CPT/HCPCS: 97110; 97112; 97165; 97530

== ENCOUNTER 2020-10-07 12:00 | Outpatient (RCR) | payer OTHER, MEDICARE, MEDICAID, SELFPAY ==
[2019-09-02 12:00] VITALS: BMI 23.4
--- NOTE | 2019-11-11 09:43 | PT.OIE ---
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 (11/10/19) Aphasia following unspecified cerebrovascular disease (11/10/19) Weakness (11/10/19) Past Medical History (Last Updated 07/23/18 @ 15:38 by Aida Jackson) Antiphospholipid antibody syndrome (Chronic) 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 (Chronic 09/01/15) Aphasia following cerebrovascular disease (Chronic 01/27/15) CAD (coronary artery disease) (Chronic) Cardiac arrhythmia (Chronic) Cerebrovascular accident (CVA) involving left middle cerebral artery territory (Chronic 09/01/15) Chronic atrial flutter (Chronic 09/01/15) Chronic systolic congestive heart failure (Chronic 09/01/15) Coronary artery disease involving [place] coronary artery of [place] heart without angina pectoris (Chronic 09/01/15) Diabetes mellitus (Chronic) DVT (deep venous thrombosis) (Resolved) Essential hypertension (Chronic 09/01/15) Hemiparesis affecting dominant side as late effect of cerebrovascular accident (Chronic 01/27/15) History of stroke with residual deficit (Chronic) Hyperlipidemia (Chronic 09/01/15) Hyperlipidemia (Chronic) Myocardial infarction (Resolved) Pacemaker (Chronic) Rheumatoid arthritis (Chronic) Stenosis of left carotid artery (Chronic 12/22/13) Systolic heart failure (Resolved) Type 2 diabetes mellitus (Chronic) Past Surgical History (Last Updated 06/22/19 @ 19:08 by Vidya Yao RN) AICD (automatic cardioverter/defibrillator) present (Acute) History of angioplasty (Resolved) Presence of cardiac pacemaker (Resolved) Visit Care Team Role Provider Type Delfino Epstein MD Attending Provider Physician Primary Care Provider Specialty: [facility] Address: [address] [place] [address] Email: [email or web address] Physical Therapy Initial Evaluation PT-OP-A Visit Information Start: 11/10/19 12:59 Freq: Status: Active Protocol: Document 11/10/19 17:38 [facility] (Rec: 11/10/19 18:01 [facility] [email or web address]) Out-Patient Physical Therapy Visit Information Visit Information Visit Type Initial Evaluation Visit Note 63 year old male with weakness , hemiparesis, aphasia. He suffered a CVA November 03 2013. He has had previous PT but had a ball fall this past August 2019 which hospitalized him. He has had home health PT until now but is ready to begin outpatient PT. Visit Start Time 13:45 Visit Stop Time 14:30 Total Visit Minutes 45 Evaluation Information Evaluation Date 11/10/19 Precautions Precautions fall risk and has a history of falls PT-OP-B Current Condition Start: 11/10/19 12:59 Freq: Status: Active Protocol: Document 11/10/19 17:38 [facility] (Rec: 11/10/19 18:01 [facility] [email or web address]) Current Condition History of Current Condition Onset Date CVA in 2013. Falls x3 & hospitalization 06/22/19, and August 2019 Current Complaints dec activitiy tolerance, poor balance, dec amb speed History of Current Condition Pt is a 63 y.o. 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 Pt has been seen at [facility] OP for PT, OT, ST over the past few years. He was recently hospitalized ( 06/22/19) for 3 falls in the same day. And then again in August 2019. The patient had very low sodium levels at the time One fall occured in the shower and 2 occured getting out of bed. Since recent hospitalization, daughter reports she has seen a decline in his function in dec cognitive processing. Pt has dec stamina with walking, is more unstable on his feet, has been shuffling more and appears to have less coordination. Daughter belives he fell on 06/22/19 was due to pain in his LLE (from RA). Pt reports no sensation on RLE. He has a hx of Rhemuatoid Arthritis, blood clots, depression, diabetes mellitus I, falls, depression, heart attack, pacemaker, neuropathy, and R elbow surgery. Pt amb w a large base quad cane and DF assist AFO. Pt has had multiple falls prior to most recent hospitalization that normally occur with transitional movements like getting out of bed or into a car, prabhu when he is tired. There is an incline and gravel on their driveway which his daughter believes may be contributing to the falls with car transfers. Pt has required 24/7 caregiving since his CVA in 2013, which is provided by his daughter during the daytime and his at nighttime. Prior Treatments and Tests PT, OT, ST. Has seen improvements with PT, but discontinued d/t plateauing of function. Future Testing and Treatments Planned OT and speech at [facility] Treatment Goals Patient/Caregiver Goals To improve walking endurance, balance and to decrease fall risk. Prior Functional Status Baseline Function- ADL's Needs Assist Baseline Function- Mobility Needs Assist Baseline Function- Gait LBQC, AFO Baseline Function- Work/School NA Baseline Function- Recreation/Hobbies Able to ride in car with his daughter to drop of grandchildren at school. Able to amb short distances in the community w/LBQC. Able to use motorized carts at larger stores PT-OP-D Balance Start: 11/10/19 18:02 Freq: Status: Active Protocol: Document 11/10/19 18:02 [facility] (Rec: 11/10/19 18:05 [facility] [email or web address]) OP-PT Balance Assessment Standing Balance Static Standing Balance Ability Fair Dynamic Standing Balance Ability Fair Device Used large based quad cane Standing Balance Comments Fair standing balance with LBQC near by Tinetti Balance Assessment Sitting Balance Sitting Balance Steady, safe Arising from Chair Ability to Arise Able, uses arms to help Standing Balance Immediate Standing Balance Unsteady Standing Balance Steady, wide stance Nudged Response Staggers, catches self Standing with Eyes Closed Unsteady Turning Step Pattern Turning 360 Degrees Discontinuous steps Stability Turning 360 Degrees Unsteady, grabs/staggers Sitting Down Sitting Down Uses arms or unsteady Gait and Step Right Foot Step Length Does pass stance foot Right Foot Step Height Does not clear floor Left Foot Step Length Does not pass stance foot Left Foot Step Height Does not clear floor Gait Description Path Description Mild/moderate deviation Trunk Description Marked sway or uses aide Walking Stance Heels apart Scoring and Interpretation Tinetti Composite Score (points) 7 Interpretation of Scores High risk for falls(< 19) Tinetti Impairment Rating from Composite 60 to <80% Impaired (Score 6- Score 11) Estrella Fall Scale Copyright Permission PT-OP-E Functional Tests Start: 11/10/19 18:02 Freq: Status: Active Protocol: Document 11/10/19 18:02 [facility] (Rec: 11/10/19 18:05 [facility] [email or web address]) Functional Tests 6 Minute Walk Test Distance 224 ft Device Used large base quad cane Comments cued increase LLE step passed RLE Tinetti Balance and Gait Assessment Composite Score Impairment Rating 40 to <60% Impaired (Score 12- 16) PT-OP-G Mobility & Gait Start: 11/10/19 18:02 Freq: Status: Active Protocol: Document 11/10/19 18:02 [facility] (Rec: 11/10/19 18:05 [facility] [email or web address]) OP Mobility Evaluation Bed Mobility Rolling able to roll in bed ind Supine to and from Sit able to transfer supine to and from sit ind Transfers Sit to Stand Heavy use of LUE to push up from chair. Pt had some instability with rising from chair. OP Gait Assessment Gait Gait Assistance Required: Standby Assistance Assistive Devices Assistive Device Large Based Quad Cane Orthotic/Prosthetic Devices or Brace: Yes Gait Deviations General Gait Pattern Antalgic,Decreased Stride Length,Decreased Feet Clearance,Narrow Based Gait Factors Limiting Gait Function Factors Limiting Gait Function Decreased Activity Tolerance, Decreased Strength,Poor Balance,Poor Safety Awareness PT-OP-M Strength Start: 11/10/19 18:02 Freq: Status: Active Protocol: Document 11/10/19 13:45 [facility] (Rec: 11/11/19 09:37 [facility] [email or web address]) Hip Strength Hip Manual Muscle Testing Right Flexion (L2) 2 Poor Extension (S1) 2 Poor Abduction 2 Poor External Rotation 2 Poor Internal Rotation 2 Poor Left Flexion (L2) 3+ Fair+ Extension (S1) 3+ Fair+ Abduction 3+ Fair+ Adduction 3+ Fair+ External Rotation 3+ Fair+ Internal Rotation 3+ Fair+ Knee Strength Knee Manual Muscle Testing Right Flexion (S2) 2 Poor Extension (L3) 2+ Poor+ Left Reason Not Measured WFL PT-OP-Q Treatments Start: 11/10/19 18:02 Freq: Status: Active Protocol: Document 11/10/19 18:13 [facility] (Rec: 11/10/19 18:19 [facility] [email or web address]) Cardio Equipment Recumbent Elliptical (BiodNetatmo) Duration (Minutes) 5 Resistance 1 Therapeutic Exercises Standing Exercises 2 Standing Exercise Name standing side steps Reps/Minutes 2 xms length of parallel bar 1 Standing Exercise Name standing marches Reps/Minutes 2 x 10 reps squats Standing Exercise Name 10 PT-OP-T Assessment and Plan Start: 11/10/19 18:02 Freq: Status: Active Protocol: Document 11/10/19 18:13 [facility] (Rec: 11/10/19 18:19 [facility] [email or web address]) Physical Therapy Assessment Goals Tinnetti Impairment high fall risk Short Term Goal (STG) Pt will improve his ability to turn and step up with gait patterns to decrease fall risk . STG Duration 4 weeks Shelter Goal (LTG) Pt will increase Tinnetti score to at least 24/28 in order to decrease fall risk to low. LTG Duration 8 weeks 6MWT Impairment Decreased LE strength and functional mobility Short Term Goal (STG) Sukh is able to perfrom a transferfrom sit-stand and stand - sit safely and without use of his hands STG Duration 4 weeks Change Advisor Goal (LTG) With improved LE strength, Sukh is able to perform 10 standing squats with minimal support LTG Duration 8 weeks Gait Impairment gait deviations Short Term Goal (STG) Pt will be able to amb for 20 ft with minimal in-toeing of LLE in order to reduce risk of falls. STG Duration 4 weeks Shelter Goal (LTG) Pt will be able to amb for 50 ft without leaning onto LBQC for heavy support in order to reduce fall risk. LTG Duration 8 weeks Assessment Summary Assessment Sukh has a history of right hemiplegia and weakness from a CVA October 2013. Sukh returns to physical therapy today after his last fall in August in which he was hospitalized. He has been having Home health PT up until this time. Goals include increasing strength, decreasing fall risk , and improving functional mobility and gait. Physical Therapy Plan Frequency and Duration Frequency of Treatment 2x/Week Duration of Treatment 8 Plan of Care Start Date 11/10/19 Plan of Care End Date 01/05/20 Therapeutic Interventions Therapeutic Interventions Balance Training,Gait Training ,Home Exercise Program, Neuromuscular Re-education, Orthotic/Prosthetic Management ,Patient/Caregiver Education, Self-Care/Home Management, Therapeutic Exercises Next Visit Focus/Plan Next Note Type Treatment Note Next Visit Plan Work on LE strengthening, gait training with quad cane working to increase distance, balance training and exercises
--- NOTE | 2019-11-11 13:43 | PT.OPPOC ---
Physical, Occupational & Speech Therapy At [facility] 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 (11/10/19) Aphasia following unspecified cerebrovascular disease (11/10/19) Weakness (11/10/19) Visit Care Team Role Provider Type Delfino Epstein MD Attending Provider Physician Primary Care Provider Specialty: [facility] Address: [address] [place] [address], [id number] Email: [email or web address] Plan Of Care PT-OP-T Assessment and Plan Start: 11/10/19 18:02 Freq: Status: Active Protocol: Document 11/10/19 18:13 [facility] (Rec: 11/10/19 18:19 [facility] [email or web address]) Physical Therapy Assessment Goals Tinnetti Impairment high fall risk Short Term Goal (STG) Pt will improve his ability to turn and step up with improved gait patterns to decrease fall risk . STG Duration 4 weeks Retirement Goal (LTG) Pt will increase Tinnetti score to at least 24/28 in order to decrease fall risk to low. LTG Duration 8 weeks 6MWT Impairment Decreased LE strength and functional mobility Short Term Goal (STG) Sukh is able to perfrom a transfer from sit-stand and stand - sit safely and with minimal use of his hands STG Duration 4 weeks Wood Stainer Goal (LTG) With improved LE strength, Sukh is able to perform 10 standing squats with minimal support LTG Duration 8 weeks Gait Impairment gait deviations Short Term Goal (STG) Pt will be able to amb for 20 ft with minimal in-toeing of LLE in order to reduce risk of falls. STG Duration 4 weeks Retirement Goal (LTG) Pt will be able to amb for 50 ft without leaning onto LBQC for heavy support in order to reduce fall risk. LTG Duration 8 weeks Assessment Summary Assessment Sukh has a history of right hemiplegia and weakness from a CVA October 2013. Sukh returns to physical therapy today after his last fall in August in which he was hospitalized. He has been having Home health PT up until this time. Goals include increasing strength, decreasing fall risk , and improving functional mobility and gait. Physical Therapy Plan Frequency and Duration Frequency of Treatment 2x/Week Duration of Treatment 8 Plan of Care Start Date 11/10/19 Plan of Care End Date 01/05/20 Therapeutic Interventions Therapeutic Interventions Balance Training,Gait Training ,Home Exercise Program, Neuromuscular Re-education, Orthotic/Prosthetic Management ,Patient/Caregiver Education, Self-Care/Home Management, Therapeutic Exercises Next Visit Focus/Plan Next Note Type Treatment Note Next Visit Plan Work on LE strengthening, gait training with quad cane working to increase distance, balance training and exercises Plan of Care Dates Plan of Care Start Date 11/10/19 Plan of Care End Date 01/05/20 Electronically Signed by: Ivory Reece, PT 11/11/19 [id number] Please Sign and Return: I have reviewed this Plan of Care and certify that the skilled therapy services above are required to meet the patient?s needs. Physician Signature Date Printed Name and Credentials Clinical Instructor Signature Printed Name and Credentials
--- NOTE | 2019-11-12 16:44 | PT.OTN ---
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 (11/12/19) Aphasia following unspecified cerebrovascular disease (11/12/19) Weakness (11/12/19) Physical Therapy Treatment Note PT-OP-A Visit Information Start: 11/10/19 12:59 Freq: Status: Active Protocol: Document 11/12/19 14:07 [facility] (Rec: 11/12/19 14:34 [facility] [id number]) Out-Patient Physical Therapy Visit Information Visit Information Visit Type Treatment Note Visit Start Time 14:00 Visit Stop Time 14:30 Total Visit Minutes 30 Visit Number 2 PT-OP-B Current Condition Start: 11/10/19 12:59 Freq: Status: Active Protocol: Document 11/10/19 17:38 [facility] (Rec: 11/10/19 18:01 [facility] [email or web address]) Current Condition History of Current Condition Onset Date CVA in 2013. Falls x3 & hospitalization 06/22/19, and August 2019 Current Complaints dec activitiy tolerance, poor balance, dec amb speed History of Current Condition Pt is a 63 y.o. 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 Pt has been seen at [facility] OP for PT, OT, ST over the past few years. He was recently hospitalized ( 06/22/19) for 3 falls in the same day. And then again in August 2019. The patient had very low sodium levels at the time One fall occured in the shower and 2 occured getting out of bed. Since recent hospitalization, daughter reports she has seen a decline in his function in dec cognitive processing. Pt has dec stamina with walking, is more unstable on his feet, has been shuffling more and appears to have less coordination. Daughter carlos he fell on 06/22/19 was due to pain in his LLE (from RA). Pt reports no sensation on RLE. He has a hx of Rhemuatoid Arthritis, blood clots, depression, diabetes mellitus I, falls, depression, heart attack, pacemaker, neuropathy, and R elbow surgery. Pt amb w a large base quad cane and DF assist AFO. Pt has had multiple falls prior to most recent hospitalization that normally occur with transitional movements like getting out of bed or into a car, prabhu when he is tired. There is an incline and gravel on their driveway which his daughter believes may be contributing to the falls with car transfers. Pt has required 24/7 caregiving since his CVA in 2013, which is provided by his daughter during the daytime and his at nighttime. Prior Treatments and Tests PT, OT, ST. Has seen improvements with PT, but discontinued d/t plateauing of function. Future Testing and Treatments Planned OT and speech at [facility] Treatment Goals Patient/Caregiver Goals To improve walking endurance, balance and to decrease fall risk. Prior Functional Status Baseline Function- ADL's Needs Assist Baseline Function- Mobility Needs Assist Baseline Function- Gait LBQC, AFO Baseline Function- Work/School NA Baseline Function- Recreation/Hobbies Able to ride in car with his daughter to drop of grandchildren at school. Able to amb short distances in the community w/LBQC. Able to use motorized carts at larger stores PT-OP-C Subjective Start: 11/10/19 12:59 Freq: Status: Active Protocol: Document 11/12/19 14:07 [facility] (Rec: 11/12/19 14:34 [facility] [id number]) OP-PT Subjective Patient Comments Patient Comments pt is brought to PT by his daughter in law. No new complaints today Patient Reported Progress Same PT-OP-D Balance Start: 11/10/19 18:02 Freq: Status: Active Protocol: Document 11/10/19 18:02 [facility] (Rec: 11/10/19 18:05 [facility] [id number]) OP-PT Balance Assessment Standing Balance Static Standing Balance Ability Fair Dynamic Standing Balance Ability Fair Device Used large based quad cane Standing Balance Comments Fair standing balance with LBQC near by Tinetti Balance Assessment Sitting Balance Sitting Balance Steady, safe Arising from Chair Ability to Arise Able, uses arms to help Standing Balance Immediate Standing Balance Unsteady Standing Balance Steady, wide stance Nudged Response Staggers, catches self Standing with Eyes Closed Unsteady Turning Step Pattern Turning 360 Degrees Discontinuous steps Stability Turning 360 Degrees Unsteady, grabs/staggers Sitting Down Sitting Down Uses arms or unsteady Gait and Step Right Foot Step Length Does pass stance foot Right Foot Step Height Does not clear floor Left Foot Step Length Does not pass stance foot Left Foot Step Height Does not clear floor Gait Description Path Description Mild/moderate deviation Trunk Description Marked sway or uses aide Walking Stance Heels apart Scoring and Interpretation Tinetti Composite Score (points) 7 Interpretation of Scores High risk for falls(< 19) Tinetti Impairment Rating from Composite 60 to <80% Impaired (Score 6- Score 11) Estrella Fall Scale Copyright Permission PT-OP-E Functional Tests Start: 11/10/19 18:02 Freq: Status: Active Protocol: Document 11/10/19 18:02 [facility] (Rec: 11/10/19 18:05 [facility] [email or web address]) Functional Tests 6 Minute Walk Test Distance 224 ft Device Used large base quad cane Comments cued increase LLE step passed RLE Tinetti Balance and Gait Assessment Composite Score Impairment Rating 40 to <60% Impaired (Score 12- 16) PT-OP-G Mobility & Gait Start: 11/10/19 18:02 Freq: Status: Active Protocol: Document 11/10/19 18:02 [facility] (Rec: 11/10/19 18:05 [facility] [email or web address]) OP Mobility Evaluation Bed Mobility Rolling able to roll in bed ind Supine to and from Sit able to transfer supine to and from sit ind Transfers Sit to Stand Heavy use of LUE to push up from chair. Pt had some instability with rising from chair. OP Gait Assessment Gait Gait Assistance Required: Standby Assistance Assistive Devices Assistive Device Large Based Quad Cane Orthotic/Prosthetic Devices or Brace: Yes Gait Deviations General Gait Pattern Antalgic,Decreased Stride Length,Decreased Feet Clearance,Narrow Based Gait Factors Limiting Gait Function Factors Limiting Gait Function Decreased Activity Tolerance, Decreased Strength,Poor Balance,Poor Safety Awareness PT-OP-M Strength Start: 11/10/19 18:02 Freq: Status: Active Protocol: Document 11/10/19 13:45 [facility] (Rec: 11/11/19 09:37 [facility] [email or web address]) Hip Strength Hip Manual Muscle Testing Right Flexion (L2) 2 Poor Extension (S1) 2 Poor Abduction 2 Poor External Rotation 2 Poor Internal Rotation 2 Poor Left Flexion (L2) 3+ Fair+ Extension (S1) 3+ Fair+ Abduction 3+ Fair+ Adduction 3+ Fair+ External Rotation 3+ Fair+ Internal Rotation 3+ Fair+ Knee Strength Knee Manual Muscle Testing Right Flexion (S2) 2 Poor Extension (L3) 2+ Poor+ Left Reason Not Measured WFL PT-OP-Q Treatments Start: 11/10/19 18:02 Freq: Status: Active Protocol: Document 11/12/19 14:07 [facility] (Rec: 11/12/19 14:34 [facility] [id number]) Cardio Equipment Recumbent Elliptical (Biodex) Duration (Minutes) 5 Resistance 3 Therapeutic Exercises Sitting Exercises LAQ Sitting Exercise Name seated LAQ Resistance AROM Reps/Minutes 3x10 pause at end range Comments alternate R and L with target to kick to (pause quad contraction end range) marches Sitting Exercise Name seated marches Reps/Minutes x 10 reps each side Standing Exercises 2 Standing Exercise Name standing side steps Reps/Minutes 2 xms length of parallel bar 1 Standing Exercise Name standing marches Reps/Minutes 2 x 10 reps squats Standing Exercise Name standing chair squats Reps/Minutes 2 x 10 reps Comments at parallel bars with left hand hold Neuro Re-Education Treatment Balance Activities shuttle balance Details yellow clips on shuttle balance Comments eyes open, eyes closed, pertibations, head nods and looking side to side heel toe gait Details heel toe gait in parallel bars Reps/Duration 2 xms the length of parallel bars uneven surface Details normal stance Surface blue foam oval cushion Equipment in parallel bars Reps/Duration 10 sec EC balance board Details tipping then balance Reps/Duration 10 tips + 10 sec balance x2 Comments fwd/back, side/side stagger stance Details modified tandem stance B compliant surface Surface firm Reps/Duration 30 seconds bilaterally PT-OP-T Assessment and Plan Start: 11/10/19 18:02 Freq: Status: Active Protocol: Document 11/12/19 16:43 [facility] (Rec: 11/12/19 16:44 [facility] [email or web address]) Physical Therapy Assessment Assessment Summary Assessment Sukh was 15 minutes late today so treatment was shorter . He fatigues quickly with exercises and needs frequent rest breaks. He is intoeing on the non involved (Left)side quite a bit with gait. Physical Therapy Plan Frequency and Duration Frequency of Treatment 2x/Week Duration of Treatment 8 Plan of Care Start Date 11/10/19 Plan of Care End Date 01/05/20 Therapeutic Interventions Therapeutic Interventions Balance Training,Gait Training ,Home Exercise Program, Neuromuscular Re-education, Orthotic/Prosthetic Management ,Patient/Caregiver Education, Self-Care/Home Management, Therapeutic Exercises Next Visit Focus/Plan Next Note Type Treatment Note Next Visit Plan Work on LE strengthening, gait training with quad cane working to increase distance, balance training and exercises
--- NOTE | 2019-11-16 17:29 | PT.OTN ---
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 (11/16/19) Aphasia following unspecified cerebrovascular disease (11/16/19) Weakness (11/16/19) Physical Therapy Treatment Note PT-OP-A Visit Information Start: 11/10/19 12:59 Freq: Status: Active Protocol: Document 11/16/19 15:15 [facility] (Rec: 11/16/19 17:29 [facility] [id number]) Out-Patient Physical Therapy Visit Information Visit Information Visit Type Treatment Note Visit Start Time 15:15 Visit Stop Time 16:00 Total Visit Minutes 45 Visit Number 3 Evaluation Information Evaluation Date 11/10/19 PT-OP-B Current Condition Start: 11/10/19 12:59 Freq: Status: Active Protocol: Document 11/10/19 17:38 [facility] (Rec: 11/10/19 18:01 [facility] [email or web address]) Current Condition History of Current Condition Onset Date CVA in 2013. Falls x3 & hospitalization 06/22/19, and August 2019 Current Complaints dec activitiy tolerance, poor balance, dec amb speed History of Current Condition Pt is a 63 y.o. 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 Pt has been seen at [facility] for PT, OT, ST over the past few years. He was recently hospitalized ( 06/22/19) for 3 falls in the same day. And then again in August 2019. The patient had very low sodium levels at the time One fall occured in the shower and 2 occured getting out of bed. Since recent hospitalization, daughter reports she has seen a decline in his function in dec cognitive processing. Pt has dec stamina with walking, is more unstable on his feet, has been shuffling more and appears to have less coordination. Daughter belives he fell on 06/22/19 was due to pain in his LLE (from RA). Pt reports no sensation on RLE. He has a hx of Rhemuatoid Arthritis, blood clots, depression, diabetes mellitus I, falls, depression, heart attack, pacemaker, neuropathy, and R elbow surgery. Pt amb w a large base quad cane and DF assist AFO. Pt has had multiple falls prior to most recent hospitalization that normally occur with transitional movements like getting out of bed or into a car, prabhu when he is tired. There is an incline and gravel on their driveway which his daughter believes may be contributing to the falls with car transfers. Pt has required 24/7 caregiving since his CVA in 2013, which is provided by his daughter during the daytime and his at nighttime. Prior Treatments and Tests PT, OT, ST. Has seen improvements with PT, but discontinued d/t plateauing of function. Future Testing and Treatments Planned OT and speech at [facility] Treatment Goals Patient/Caregiver Goals To improve walking endurance, balance and to decrease fall risk. Prior Functional Status Baseline Function- ADL's Needs Assist Baseline Function- Mobility Needs Assist Baseline Function- Gait LBQC, AFO Baseline Function- Work/School NA Baseline Function- Recreation/Hobbies Able to ride in car with his daughter to drop of grandchildren at school. Able to amb short distances in the community w/LBQC. Able to use motorized carts at larger stores PT-OP-C Subjective Start: 11/10/19 12:59 Freq: Status: Active Protocol: Document 11/16/19 15:15 [facility] (Rec: 11/16/19 17:29 [facility] [id number]) OP-PT Subjective Patient Comments Patient Comments Pt's notes that pt seems stiff today, maybe because of the weather. PT-OP-D Balance Start: 11/10/19 18:02 Freq: Status: Active Protocol: Document 11/10/19 18:02 [facility] (Rec: 11/10/19 18:05 [facility] [email or web address]) OP-PT Balance Assessment Standing Balance Static Standing Balance Ability Fair Dynamic Standing Balance Ability Fair Device Used large based quad cane Standing Balance Comments Fair standing balance with LBQC near by Tinetti Balance Assessment Sitting Balance Sitting Balance Steady, safe Arising from Chair Ability to Arise Able, uses arms to help Standing Balance Immediate Standing Balance Unsteady Standing Balance Steady, wide stance Nudged Response Staggers, catches self Standing with Eyes Closed Unsteady Turning Step Pattern Turning 360 Degrees Discontinuous steps Stability Turning 360 Degrees Unsteady, grabs/staggers Sitting Down Sitting Down Uses arms or unsteady Gait and Step Right Foot Step Length Does pass stance foot Right Foot Step Height Does not clear floor Left Foot Step Length Does not pass stance foot Left Foot Step Height Does not clear floor Gait Description Path Description Mild/moderate deviation Trunk Description Marked sway or uses aide Walking Stance Heels apart Scoring and Interpretation Tinetti Composite Score (points) 7 Interpretation of Scores High risk for falls(< 19) Tinetti Impairment Rating from Composite 60 to <80% Impaired (Score 6- Score 11) Estrella Fall Scale Copyright Permission PT-OP-E Functional Tests Start: 11/10/19 18:02 Freq: Status: Active Protocol: Document 11/10/19 18:02 [facility] (Rec: 11/10/19 18:05 [facility] [id number]) Functional Tests 6 Minute Walk Test Distance 224 ft Device Used large base quad cane Comments cued increase LLE step passed RLE Tinetti Balance and Gait Assessment Composite Score Impairment Rating 40 to <60% Impaired (Score 12- 16) PT-OP-G Mobility & Gait Start: 11/10/19 18:02 Freq: Status: Active Protocol: Document 11/10/19 18:02 [facility] (Rec: 11/10/19 18:05 [facility] [id number]) OP Mobility Evaluation Bed Mobility Rolling able to roll in bed ind Supine to and from Sit able to transfer supine to and from sit ind Transfers Sit to Stand Heavy use of LUE to push up from chair. Pt had some instability with rising from chair. OP Gait Assessment Gait Gait Assistance Required: Standby Assistance Assistive Devices Assistive Device Large Based Quad Cane Orthotic/Prosthetic Devices or Brace: Yes Gait Deviations General Gait Pattern Antalgic,Decreased Stride Length,Decreased Feet Clearance,Narrow Based Gait Factors Limiting Gait Function Factors Limiting Gait Function Decreased Activity Tolerance, Decreased Strength,Poor Balance,Poor Safety Awareness PT-OP-M Strength Start: 11/10/19 18:02 Freq: Status: Active Protocol: Document 11/10/19 13:45 [facility] (Rec: 11/11/19 09:37 [facility] [id number]) Hip Strength Hip Manual Muscle Testing Right Flexion (L2) 2 Poor Extension (S1) 2 Poor Abduction 2 Poor External Rotation 2 Poor Internal Rotation 2 Poor Left Flexion (L2) 3+ Fair+ Extension (S1) 3+ Fair+ Abduction 3+ Fair+ Adduction 3+ Fair+ External Rotation 3+ Fair+ Internal Rotation 3+ Fair+ Knee Strength Knee Manual Muscle Testing Right Flexion (S2) 2 Poor Extension (L3) 2+ Poor+ Left Reason Not Measured WFL PT-OP-Q Treatments Start: 11/10/19 18:02 Freq: Status: Active Protocol: Document 11/16/19 15:15 [facility] (Rec: 11/16/19 17:29 [facility] [id number]) Cardio Equipment Recumbent Bicycle Duration (Minutes) 5 Resistance 1 Seat Position 4 Therapeutic Exercises Standing Exercises 2 Standing Exercise Name standing side steps Resistance Yellow Equipment Used T-band Reps/Minutes 2 xms length of parallel bar 1 Standing Exercise Name standing marches Reps/Minutes 2 x 10 reps Comments aim for yard stick across // bars Other Exercises hurdles Other Exercise Name Hurdles Comments Fwd, Lateral Neuro Re-Education Treatment Balance Activities heel toe gait Details heel toe gait in parallel bars Reps/Duration 2 xms the length of parallel bars uneven surface Details normal stance Surface blue foam oval cushion Equipment in parallel bars Reps/Duration 10 sec EC PT-OP-T Assessment and Plan Start: 11/10/19 18:02 Freq: Status: Active Protocol: Document 11/16/19 15:15 [facility] (Rec: 11/16/19 17:29 [facility] [id number]) Physical Therapy Assessment Goals Tinnetti Impairment high fall risk Short Term Goal (STG) Pt will improve his ability to turn and step up with gait patterns to decrease fall risk . STG Duration 4 weeks Novelty Twister Operator Goal (LTG) Pt will increase Tinnetti score to at least 24/28 in order to decrease fall risk to low. LTG Duration 8 weeks Gait Impairment gait deviations Short Term Goal (STG) Pt will be able to amb for 20 ft with minimal in-toeing of LLE in order to reduce risk of falls. STG Duration 4 weeks Penitentiary Goal (LTG) Pt will be able to amb for 50 ft without leaning onto LBQC for heavy support in order to reduce fall risk. LTG Duration 8 weeks Assessment Summary Assessment Pt performed very well today, tolerated treatments with minimal rest breaks. Physical Therapy Plan Frequency and Duration Frequency of Treatment 2x/Week Duration of Treatment 8 Plan of Care Start Date 11/10/19 Plan of Care End Date 01/05/20 Therapeutic Interventions Therapeutic Interventions Balance Training,Gait Training ,Home Exercise Program, Neuromuscular Re-education, Orthotic/Prosthetic Management ,Patient/Caregiver Education, Self-Care/Home Management, Therapeutic Exercises Next Visit Focus/Plan Next Note Type Treatment Note Next Visit Plan Work on LE strengthening, gait training with quad cane working to increase distance, balance training and exercises
--- NOTE | 2019-11-24 08:59 | PT.OTN ---
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 (11/24/19) Aphasia following unspecified cerebrovascular disease (11/24/19) Weakness (11/24/19) Physical Therapy Treatment Note PT-OP-A Visit Information Start: 11/10/19 12:59 Freq: Status: Active Protocol: Document 11/24/19 08:20 DCW (Rec: 11/24/19 08:58 DCW [id number]) Out-Patient Physical Therapy Visit Information Visit Information Visit Type Treatment Note Visit Note Arrived 5 min late, took 10 min bathroom break Visit Start Time 08:20 Visit Stop Time 09:00 Total Visit Minutes 40 Visit Number 4 Number of AUTO HEATER MECHANIC Visits 0 Evaluation Information Evaluation Date 11/10/19 PT-OP-B Current Condition Start: 11/10/19 12:59 Freq: Status: Active Protocol: Document 11/10/19 17:38 AMH (Rec: 11/10/19 18:01 AMH [email or web address]) Current Condition History of Current Condition Onset Date CVA in 2013. Falls x3 & hospitalization 06/22/19, and August 2019 Current Complaints dec activitiy tolerance, poor balance, dec amb speed History of Current Condition Pt is a 63 y.o. 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 Pt has been seen at [facility] for PT, OT, ST over the past few years. He was recently hospitalized ( 06/22/19) for 3 falls in the same day. And then again in August 2019. The patient had very low sodium levels at the time One fall occured in the shower and 2 occured getting out of bed. Since recent hospitalization, daughter reports she has seen a decline in his function in dec cognitive processing. Pt has dec stamina with walking, is more unstable on his feet, has been shuffling more and appears to have less coordination. Daughter belives he fell on 06/22/19 was due to pain in his LLE (from RA). Pt reports no sensation on RLE. He has a hx of Rhemuatoid Arthritis, blood clots, depression, diabetes mellitus I, falls, depression, heart attack, pacemaker, neuropathy, and R elbow surgery. Pt amb w a large base quad cane and DF assist AFO. Pt has had multiple falls prior to most recent hospitalization that normally occur with transitional movements like getting out of bed or into a car, prabhu when he is tired. There is an incline and gravel on their driveway which his daughter believes may be contributing to the falls with car transfers. Pt has required 24/7 caregiving since his CVA in 2013, which is provided by his daughter during the daytime and his at nighttime. Prior Treatments and Tests PT, OT, ST. Has seen improvements with PT, but discontinued d/t plateauing of function. Future Testing and Treatments Planned OT and speech at [facility] Treatment Goals Patient/Caregiver Goals To improve walking endurance, balance and to decrease fall risk. Prior Functional Status Baseline Function- ADL's Needs Assist Baseline Function- Mobility Needs Assist Baseline Function- Gait LBQC, AFO Baseline Function- Work/School NA Baseline Function- Recreation/Hobbies Able to ride in car with his daughter to drop of grandchildren at school. Able to amb short distances in the community w/LBQC. Able to use motorized carts at larger stores PT-OP-C Subjective Start: 11/10/19 12:59 Freq: Status: Active Protocol: Document 11/24/19 08:20 DCW (Rec: 11/24/19 08:58 DCW [id number]) OP-PT Subjective Patient Comments Patient Comments Per pt's , pt attempted to get back into bed multiple times this morning, so he may be a little tired. PT-OP-D Balance Start: 11/10/19 18:02 Freq: Status: Active Protocol: Document 11/10/19 18:02 AMH (Rec: 11/10/19 18:05 AMH [email or web address]) OP-PT Balance Assessment Standing Balance Static Standing Balance Ability Fair Dynamic Standing Balance Ability Fair Device Used large based quad cane Standing Balance Comments Fair standing balance with LBQC near by Tinetti Balance Assessment Sitting Balance Sitting Balance Steady, safe Arising from Chair Ability to Arise Able, uses arms to help Standing Balance Immediate Standing Balance Unsteady Standing Balance Steady, wide stance Nudged Response Staggers, catches self Standing with Eyes Closed Unsteady Turning Step Pattern Turning 360 Degrees Discontinuous steps Stability Turning 360 Degrees Unsteady, grabs/staggers Sitting Down Sitting Down Uses arms or unsteady Gait and Step Right Foot Step Length Does pass stance foot Right Foot Step Height Does not clear floor Left Foot Step Length Does not pass stance foot Left Foot Step Height Does not clear floor Gait Description Path Description Mild/moderate deviation Trunk Description Marked sway or uses aide Walking Stance Heels apart Scoring and Interpretation Tinetti Composite Score (points) 7 Interpretation of Scores High risk for falls(< 19) Tinetti Impairment Rating from Composite 60 to <80% Impaired (Score 6- Score 11) Estrella Fall Scale Copyright Permission PT-OP-E Functional Tests Start: 11/10/19 18:02 Freq: Status: Active Protocol: Document 11/10/19 18:02 [facility] (Rec: 11/10/19 18:05 [facility] [email or web address]) Functional Tests 6 Minute Walk Test Distance 224 ft Device Used large base quad cane Comments cued increase LLE step passed RLE Tinetti Balance and Gait Assessment Composite Score Impairment Rating 40 to <60% Impaired (Score 12- 16) PT-OP-G Mobility & Gait Start: 11/10/19 18:02 Freq: Status: Active Protocol: Document 11/10/19 18:02 [facility] (Rec: 11/10/19 18:05 [facility] [email or web address]) OP Mobility Evaluation Bed Mobility Rolling able to roll in bed ind Supine to and from Sit able to transfer supine to and from sit ind Transfers Sit to Stand Heavy use of LUE to push up from chair. Pt had some instability with rising from chair. OP Gait Assessment Gait Gait Assistance Required: Standby Assistance Assistive Devices Assistive Device Large Based Quad Cane Orthotic/Prosthetic Devices or Brace: Yes Gait Deviations General Gait Pattern Antalgic,Decreased Stride Length,Decreased Feet Clearance,Narrow Based Gait Factors Limiting Gait Function Factors Limiting Gait Function Decreased Activity Tolerance, Decreased Strength,Poor Balance,Poor Safety Awareness PT-OP-M Strength Start: 11/10/19 18:02 Freq: Status: Active Protocol: Document 11/10/19 13:45 [facility] (Rec: 11/11/19 09:37 [facility] [email or web address]) Hip Strength Hip Manual Muscle Testing Right Flexion (L2) 2 Poor Extension (S1) 2 Poor Abduction 2 Poor External Rotation 2 Poor Internal Rotation 2 Poor Left Flexion (L2) 3+ Fair+ Extension (S1) 3+ Fair+ Abduction 3+ Fair+ Adduction 3+ Fair+ External Rotation 3+ Fair+ Internal Rotation 3+ Fair+ Knee Strength Knee Manual Muscle Testing Right Flexion (S2) 2 Poor Extension (L3) 2+ Poor+ Left Reason Not Measured WFL PT-OP-Q Treatments Start: 11/10/19 18:02 Freq: Status: Active Protocol: Document 11/24/19 08:20 DCW (Rec: 11/24/19 08:58 DCW [id number]) Cardio Equipment Recumbent Elliptical (Biodex) Duration (Minutes) 5 Resistance 3 Seat Position 7 Gym Equipment Shuttle Balance red clips Details Red Comments WBOS (EO/EC, Balloon) Therapeutic Exercises Standing Exercises 2 Standing Exercise Name standing side steps Resistance Yellow Equipment Used T-band Reps/Minutes 2 x length of rail Other Exercises hurdles Other Exercise Name Hurdles Comments Fwd, Lateral PT-OP-T Assessment and Plan Start: 11/10/19 18:02 Freq: Status: Active Protocol: Document 11/24/19 08:20 DCW (Rec: 11/24/19 08:58 DCW [id number]) Physical Therapy Assessment Impairments Impairments Activity Tolerance,Balance, Coordination,Functional Activities,Functional Mobility ,Gait,Pain,Posture,ROM, Sensation,Soft Tissue Mobility ,Strength,Tone,Transfers Goals Tinnetti Impairment high fall risk Short Term Goal (STG) Pt will improve his ability to turn and step up with gait patterns to decrease fall risk . STG Duration 4 weeks Professor Of Chemical Engineering Goal (LTG) Pt will increase Tinnetti score to at least 24/28 in order to decrease fall risk to low. LTG Duration 8 weeks Gait Impairment gait deviations Short Term Goal (STG) Pt will be able to amb for 20 ft with minimal in-toeing of LLE in order to reduce risk of falls. STG Duration 4 weeks Skilled Nursing Goal (LTG) Pt will be able to amb for 50 ft without leaning onto LBQC for heavy support in order to reduce fall risk. LTG Duration 8 weeks Assessment Summary Assessment Pt unable to get through a lot during today's session due to a shortened treatment time, however what he did do, he tolerated well, with no complaints to pain, no LOB. Physical Therapy Plan Frequency and Duration Frequency of Treatment 2x/Week Duration of Treatment 8 Plan of Care Start Date 11/10/19 Plan of Care End Date 01/05/20 Therapeutic Interventions Therapeutic Interventions Balance Training,Gait Training ,Home Exercise Program, Neuromuscular Re-education, Orthotic/Prosthetic Management ,Patient/Caregiver Education, Self-Care/Home Management, Therapeutic Exercises Next Visit Focus/Plan Next Note Type Treatment Note Next Visit Plan Work on LE strengthening, gait training with quad cane working to increase distance, balance training and exercises
--- NOTE | 2019-11-26 12:43 | PT.OTN ---
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 (11/26/19) Aphasia following unspecified cerebrovascular disease (11/26/19) Weakness (11/26/19) Physical Therapy Treatment Note PT-OP-A Visit Information Start: 11/10/19 12:59 Freq: Status: Active Protocol: Document 11/26/19 12:00 DCW (Rec: 11/26/19 12:42 DCW [id number]) Out-Patient Physical Therapy Visit Information Visit Information Visit Type Treatment Note Visit Note 5 min bathroom break mid- treatment Visit Start Time 12:00 Visit Stop Time 12:45 Total Visit Minutes 40 Visit Number 5 Number of BREWERY PUMPER Visits 0 Evaluation Information Evaluation Date 11/10/19 PT-OP-B Current Condition Start: 11/10/19 12:59 Freq: Status: Active Protocol: Document 11/10/19 17:38 [facility] (Rec: 11/10/19 18:01 [facility] [email or web address]) Current Condition History of Current Condition Onset Date CVA in 2013. Falls x3 & hospitalization 06/22/19, and August 2019 Current Complaints dec activitiy tolerance, poor balance, dec amb speed History of Current Condition Pt is a 63 y.o. 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 Pt has been seen at [facility] OP for PT, OT, ST over the past few years. He was recently hospitalized ( 06/22/19) for 3 falls in the same day. And then again in August 2019. The patient had very low sodium levels at the time One fall occured in the shower and 2 occured getting out of bed. Since recent hospitalization, daughter reports she has seen a decline in his function in dec cognitive processing. Pt has dec stamina with walking, is more unstable on his feet, has been shuffling more and appears to have less coordination. Daughter belives he fell on 06/22/19 was due to pain in his LLE (from RA). Pt reports no sensation on RLE. He has a hx of Rhemuatoid Arthritis, blood clots, depression, diabetes mellitus I, falls, depression, heart attack, pacemaker, neuropathy, and R elbow surgery. Pt amb w a large base quad cane and DF assist AFO. Pt has had multiple falls prior to most recent hospitalization that normally occur with transitional movements like getting out of bed or into a car, prabhu when he is tired. There is an incline and gravel on their driveway which his daughter believes may be contributing to the falls with car transfers. Pt has required 24/7 caregiving since his CVA in 2013, which is provided by his daughter during the daytime and his at nighttime. Prior Treatments and Tests PT, OT, ST. Has seen improvements with PT, but discontinued d/t plateauing of function. Future Testing and Treatments Planned OT and speech at [facility] Treatment Goals Patient/Caregiver Goals To improve walking endurance, balance and to decrease fall risk. Prior Functional Status Baseline Function- ADL's Needs Assist Baseline Function- Mobility Needs Assist Baseline Function- Gait LBQC, AFO Baseline Function- Work/School NA Baseline Function- Recreation/Hobbies Able to ride in car with his daughter to drop of grandchildren at school. Able to amb short distances in the community w/LBQC. Able to use motorized carts at larger stores PT-OP-C Subjective Start: 11/10/19 12:59 Freq: Status: Active Protocol: Document 11/26/19 12:00 DCW (Rec: 11/26/19 12:42 DCW [id number]) OP-PT Subjective Patient Comments Patient Comments Pt signals that he is doing well today. PT-OP-D Balance Start: 11/10/19 18:02 Freq: Status: Active Protocol: Document 11/10/19 18:02 [facility] (Rec: 11/10/19 18:05 [facility] [email or web address]) OP-PT Balance Assessment Standing Balance Static Standing Balance Ability Fair Dynamic Standing Balance Ability Fair Device Used large based quad cane Standing Balance Comments Fair standing balance with LBQC near by Tinetti Balance Assessment Sitting Balance Sitting Balance Steady, safe Arising from Chair Ability to Arise Able, uses arms to help Standing Balance Immediate Standing Balance Unsteady Standing Balance Steady, wide stance Nudged Response Staggers, catches self Standing with Eyes Closed Unsteady Turning Step Pattern Turning 360 Degrees Discontinuous steps Stability Turning 360 Degrees Unsteady, grabs/staggers Sitting Down Sitting Down Uses arms or unsteady Gait and Step Right Foot Step Length Does pass stance foot Right Foot Step Height Does not clear floor Left Foot Step Length Does not pass stance foot Left Foot Step Height Does not clear floor Gait Description Path Description Mild/moderate deviation Trunk Description Marked sway or uses aide Walking Stance Heels apart Scoring and Interpretation Tinetti Composite Score (points) 7 Interpretation of Scores High risk for falls(< 19) Tinetti Impairment Rating from Composite 60 to <80% Impaired (Score 6- Score 11) Estrella Fall Scale Copyright Permission PT-OP-E Functional Tests Start: 11/10/19 18:02 Freq: Status: Active Protocol: Document 11/10/19 18:02 [facility] (Rec: 11/10/19 18:05 [facility] [email or web address]) Functional Tests 6 Minute Walk Test Distance 224 ft Device Used large base quad cane Comments cued increase LLE step passed RLE Tinetti Balance and Gait Assessment Composite Score Impairment Rating 40 to <60% Impaired (Score 12- 16) PT-OP-G Mobility & Gait Start: 11/10/19 18:02 Freq: Status: Active Protocol: Document 11/10/19 18:02 [facility] (Rec: 11/10/19 18:05 [facility] [email or web address]) OP Mobility Evaluation Bed Mobility Rolling able to roll in bed ind Supine to and from Sit able to transfer supine to and from sit ind Transfers Sit to Stand Heavy use of LUE to push up from chair. Pt had some instability with rising from chair. OP Gait Assessment Gait Gait Assistance Required: Standby Assistance Assistive Devices Assistive Device Large Based Quad Cane Orthotic/Prosthetic Devices or Brace: Yes Gait Deviations General Gait Pattern Antalgic,Decreased Stride Length,Decreased Feet Clearance,Narrow Based Gait Factors Limiting Gait Function Factors Limiting Gait Function Decreased Activity Tolerance, Decreased Strength,Poor Balance,Poor Safety Awareness PT-OP-M Strength Start: 11/10/19 18:02 Freq: Status: Active Protocol: Document 11/10/19 13:45 [facility] (Rec: 11/11/19 09:37 [facility] [email or web address]) Hip Strength Hip Manual Muscle Testing Right Flexion (L2) 2 Poor Extension (S1) 2 Poor Abduction 2 Poor External Rotation 2 Poor Internal Rotation 2 Poor Left Flexion (L2) 3+ Fair+ Extension (S1) 3+ Fair+ Abduction 3+ Fair+ Adduction 3+ Fair+ External Rotation 3+ Fair+ Internal Rotation 3+ Fair+ Knee Strength Knee Manual Muscle Testing Right Flexion (S2) 2 Poor Extension (L3) 2+ Poor+ Left Reason Not Measured WFL PT-OP-Q Treatments Start: 11/10/19 18:02 Freq: Status: Active Protocol: Document 11/26/19 12:00 DCW (Rec: 11/26/19 12:42 DCW [id number]) Cardio Equipment Recumbent Elliptical (Biodex) Duration (Minutes) 5 Resistance 1 Seat Position 7 Gym Equipment Shuttle Balance red clips Details Red Comments WBOS (EO/EC, Staggered) Therapeutic Exercises Standing Exercises 3 Standing Exercise Name Step-ups Equipment Used 8 step, // bars 2 Standing Exercise Name standing side steps Resistance Yellow Equipment Used T-band Reps/Minutes 2 x length of rail Neuro Re-Education Treatment Balance Activities uneven surface Details normal stance Surface carballo foam Equipment in parallel bars Reps/Duration 10 sec EC PT-OP-T Assessment and Plan Start: 11/10/19 18:02 Freq: Status: Active Protocol: Document 11/26/19 12:00 DCW (Rec: 11/26/19 12:42 DCW [id number]) Physical Therapy Assessment Impairments Impairments Activity Tolerance,Balance, Coordination,Functional Activities,Functional Mobility ,Gait,Pain,Posture,ROM, Sensation,Soft Tissue Mobility ,Strength,Tone,Transfers Goals Tinnetti Impairment high fall risk Short Term Goal (STG) Pt will improve his ability to turn and step up with gait patterns to decrease fall risk . STG Duration 4 weeks Usp Goal (LTG) Pt will increase Tinnetti score to at least 24/28 in order to decrease fall risk to low. LTG Duration 8 weeks Gait Impairment gait deviations Short Term Goal (STG) Pt will be able to amb for 20 ft with minimal in-toeing of LLE in order to reduce risk of falls. STG Duration 4 weeks Pulp Roller Goal (LTG) Pt will be able to amb for 50 ft without leaning onto LBQC for heavy support in order to reduce fall risk. LTG Duration 8 weeks Assessment Summary Assessment Pt fairly self-limiting today, just decided he was finished with an activity and stopped whenever he wanted. Physical Therapy Plan Frequency and Duration Frequency of Treatment 2x/Week Duration of Treatment 8 Plan of Care Start Date 11/10/19 Plan of Care End Date 01/05/20 Therapeutic Interventions Therapeutic Interventions Balance Training,Gait Training ,Home Exercise Program, Neuromuscular Re-education, Orthotic/Prosthetic Management ,Patient/Caregiver Education, Self-Care/Home Management, Therapeutic Exercises Next Visit Focus/Plan Next Note Type Treatment Note Next Visit Plan Work on LE strengthening, gait training with quad cane working to increase distance, balance training and exercises
--- NOTE | 2019-11-30 11:34 | PT-OP ANOTE ---
Pt no-showed to his 11/30/19 appointment
--- NOTE | 2019-12-07 16:07 | PT.OTN ---
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 (12/07/19) Aphasia following unspecified cerebrovascular disease (12/07/19) Weakness (12/07/19) Physical Therapy Treatment Note PT-OP-A Visit Information Start: 11/10/19 12:59 Freq: Status: Active Protocol: Document 12/07/19 15:15 DCW (Rec: 12/07/19 16:06 DCW [id number]) Out-Patient Physical Therapy Visit Information Visit Information Visit Type Treatment Note Visit Start Time 15:15 Visit Stop Time 16:00 Total Visit Minutes 45 Visit Number 6 Number of CHUTE GREASER Visits 0 Evaluation Information Evaluation Date 11/10/19 PT-OP-B Current Condition Start: 11/10/19 12:59 Freq: Status: Active Protocol: Document 11/10/19 17:38 [facility] (Rec: 11/10/19 18:01 [facility] [email or web address]) Current Condition History of Current Condition Onset Date CVA in 2013. Falls x3 & hospitalization 06/22/19, and August 2019 Current Complaints dec activitiy tolerance, poor balance, dec amb speed History of Current Condition Pt is a 63 y.o. 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 Pt has been seen at [facility] OP for PT, OT, ST over the past few years. He was recently hospitalized ( 06/22/19) for 3 falls in the same day. And then again in August 2019. The patient had very low sodium levels at the time One fall occured in the shower and 2 occured getting out of bed. Since recent hospitalization, daughter reports she has seen a decline in his function in dec cognitive processing. Pt has dec stamina with walking, is more unstable on his feet, has been shuffling more and appears to have less coordination. Daughter saraives he fell on 06/22/19 was due to pain in his LLE (from RA). Pt reports no sensation on RLE. He has a hx of Rhemuatoid Arthritis, blood clots, depression, diabetes mellitus I, falls, depression, heart attack, pacemaker, neuropathy, and R elbow surgery. Pt amb w a large base quad cane and DF assist AFO. Pt has had multiple falls prior to most recent hospitalization that normally occur with transitional movements like getting out of bed or into a car, prabhu when he is tired. There is an incline and gravel on their driveway which his daughter believes may be contributing to the falls with car transfers. Pt has required 24/7 caregiving since his CVA in 2013, which is provided by his daughter during the daytime and his at nighttime. Prior Treatments and Tests PT, OT, ST. Has seen improvements with PT, but discontinued d/t plateauing of function. Future Testing and Treatments Planned OT and speech at [facility] Treatment Goals Patient/Caregiver Goals To improve walking endurance, balance and to decrease fall risk. Prior Functional Status Baseline Function- ADL's Needs Assist Baseline Function- Mobility Needs Assist Baseline Function- Gait LBQC, AFO Baseline Function- Work/School NA Baseline Function- Recreation/Hobbies Able to ride in car with his daughter to drop of grandchildren at school. Able to amb short distances in the community w/LBQC. Able to use motorized carts at larger stores PT-OP-C Subjective Start: 11/10/19 12:59 Freq: Status: Active Protocol: Document 12/07/19 15:15 DCW (Rec: 12/07/19 16:06 DCW [id number]) OP-PT Subjective Patient Comments Patient Comments Pt indicates that after a rough week, everyone in his house is back to their normal health. PT-OP-D Balance Start: 11/10/19 18:02 Freq: Status: Active Protocol: Document 11/10/19 18:02 [facility] (Rec: 11/10/19 18:05 [facility] [email or web address]) OP-PT Balance Assessment Standing Balance Static Standing Balance Ability Fair Dynamic Standing Balance Ability Fair Device Used large based quad cane Standing Balance Comments Fair standing balance with LBQC near by Tinetti Balance Assessment Sitting Balance Sitting Balance Steady, safe Arising from Chair Ability to Arise Able, uses arms to help Standing Balance Immediate Standing Balance Unsteady Standing Balance Steady, wide stance Nudged Response Staggers, catches self Standing with Eyes Closed Unsteady Turning Step Pattern Turning 360 Degrees Discontinuous steps Stability Turning 360 Degrees Unsteady, grabs/staggers Sitting Down Sitting Down Uses arms or unsteady Gait and Step Right Foot Step Length Does pass stance foot Right Foot Step Height Does not clear floor Left Foot Step Length Does not pass stance foot Left Foot Step Height Does not clear floor Gait Description Path Description Mild/moderate deviation Trunk Description Marked sway or uses aide Walking Stance Heels apart Scoring and Interpretation Tinetti Composite Score (points) 7 Interpretation of Scores High risk for falls(< 19) Tinetti Impairment Rating from Composite 60 to <80% Impaired (Score 6- Score 11) Estrella Fall Scale Copyright Permission PT-OP-E Functional Tests Start: 11/10/19 18:02 Freq: Status: Active Protocol: Document 11/10/19 18:02 REPLACED BY [facility] (Rec: 11/10/19 18:05 REPLACED BY [facility] [email or web address]) Functional Tests 6 Minute Walk Test Distance 224 ft Device Used large base quad cane Comments cued increase LLE step passed RLE Tinetti Balance and Gait Assessment Composite Score Impairment Rating 40 to <60% Impaired (Score 12- 16) PT-OP-G Mobility & Gait Start: 11/10/19 18:02 Freq: Status: Active Protocol: Document 11/10/19 18:02 REPLACED BY [facility] (Rec: 11/10/19 18:05 REPLACED BY [facility] [email or web address]) OP Mobility Evaluation Bed Mobility Rolling able to roll in bed ind Supine to and from Sit able to transfer supine to and from sit ind Transfers Sit to Stand Heavy use of LUE to push up from chair. Pt had some instability with rising from chair. OP Gait Assessment Gait Gait Assistance Required: Standby Assistance Assistive Devices Assistive Device Large Based Quad Cane Orthotic/Prosthetic Devices or Brace: Yes Gait Deviations General Gait Pattern Antalgic,Decreased Stride Length,Decreased Feet Clearance,Narrow Based Gait Factors Limiting Gait Function Factors Limiting Gait Function Decreased Activity Tolerance, Decreased Strength,Poor Balance,Poor Safety Awareness PT-OP-M Strength Start: 11/10/19 18:02 Freq: Status: Active Protocol: Document 11/10/19 13:45 REPLACED BY [facility] (Rec: 11/11/19 09:37 REPLACED BY [facility] [email or web address]) Hip Strength Hip Manual Muscle Testing Right Flexion (L2) 2 Poor Extension (S1) 2 Poor Abduction 2 Poor External Rotation 2 Poor Internal Rotation 2 Poor Left Flexion (L2) 3+ Fair+ Extension (S1) 3+ Fair+ Abduction 3+ Fair+ Adduction 3+ Fair+ External Rotation 3+ Fair+ Internal Rotation 3+ Fair+ Knee Strength Knee Manual Muscle Testing Right Flexion (S2) 2 Poor Extension (L3) 2+ Poor+ Left Reason Not Measured WFL PT-OP-Q Treatments Start: 11/10/19 18:02 Freq: Status: Active Protocol: Document 12/07/19 15:15 DCW (Rec: 12/07/19 16:06 DCW [id number]) Cardio Equipment Recumbent Elliptical (Biodex) Duration (Minutes) 5 Resistance 1 Seat Position 7 Gym Equipment Shuttle Balance red clips Details Red Comments WBOS (EO/EC, Staggered) Therapeutic Exercises Standing Exercises 3 Standing Exercise Name Toe-taps Resistance 4# Equipment Used 6 step 2 Standing Exercise Name standing side steps Resistance Yellow Equipment Used T-band Reps/Minutes 2 x length of rail Other Exercises hurdles Other Exercise Name Hurdles Comments Fwd, Lateral PT-OP-T Assessment and Plan Start: 11/10/19 18:02 Freq: Status: Active Protocol: Document 12/07/19 15:15 DCW (Rec: 12/07/19 16:06 DCW [id number]) Physical Therapy Assessment Impairments Impairments Activity Tolerance,Balance, Coordination,Functional Activities,Functional Mobility ,Gait,Pain,Posture,ROM, Sensation,Soft Tissue Mobility ,Strength,Tone,Transfers Goals Tinnetti Impairment high fall risk Short Term Goal (STG) Pt will improve his ability to turn and step up with gait patterns to decrease fall risk . STG Duration 4 weeks Regional Psychiatric Director Goal (LTG) Pt will increase Tinnetti score to at least 24/28 in order to decrease fall risk to low. LTG Duration 8 weeks Gait Impairment gait deviations Short Term Goal (STG) Pt will be able to amb for 20 ft with minimal in-toeing of LLE in order to reduce risk of falls. STG Duration 4 weeks Regional Psychiatric Director Goal (LTG) Pt will be able to amb for 50 ft without leaning onto LBQC for heavy support in order to reduce fall risk. LTG Duration 8 weeks Assessment Summary Assessment Pt moving today, able to tolerate increased activities. Physical Therapy Plan Frequency and Duration Frequency of Treatment 2x/Week Duration of Treatment 8 Plan of Care Start Date 11/10/19 Plan of Care End Date 01/05/20 Therapeutic Interventions Therapeutic Interventions Balance Training,Gait Training ,Home Exercise Program, Neuromuscular Re-education, Orthotic/Prosthetic Management ,Patient/Caregiver Education, Self-Care/Home Management, Therapeutic Exercises Next Visit Focus/Plan Next Note Type Treatment Note Next Visit Plan Work on LE strengthening, gait training with quad cane working to increase distance, balance training and exercises
--- NOTE | 2019-12-09 16:50 | PT.OTN ---
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 (12/09/19) Weakness (12/09/19) Physical Therapy Treatment Note PT-OP-A Visit Information Start: 11/10/19 12:59 Freq: Status: Active Protocol: Document 12/09/19 16:03 DCW (Rec: 12/09/19 16:50 DCW [id number]) Out-Patient Physical Therapy Visit Information Visit Information Visit Type Treatment Note Visit Start Time 16:03 Visit Stop Time 16:45 Total Visit Minutes 42 Visit Number 7 Number of FLORIST HELPER Visits 0 Evaluation Information Evaluation Date 11/10/19 PT-OP-B Current Condition Start: 11/10/19 12:59 Freq: Status: Active Protocol: Document 11/10/19 17:38 AMH (Rec: 11/10/19 18:01 AMH [email or web address]) Current Condition History of Current Condition Onset Date CVA in 2013. Falls x3 & hospitalization 06/22/19, and August 2019 Current Complaints dec activitiy tolerance, poor balance, dec amb speed History of Current Condition Pt is a 63 y.o. 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 Pt has been seen at [facility] OP for PT, OT, ST over the past few years. He was recently hospitalized ( 06/22/19) for 3 falls in the same day. And then again in August 2019. The patient had very low sodium levels at the time One fall occured in the shower and 2 occured getting out of bed. Since recent hospitalization, daughter reports she has seen a decline in his function in dec cognitive processing. Pt has dec stamina with walking, is more unstable on his feet, has been shuffling more and appears to have less coordination. Daughter belives he fell on 06/22/19 was due to pain in his LLE (from RA). Pt reports no sensation on RLE. He has a hx of Rhemuatoid Arthritis, blood clots, depression, diabetes mellitus I, falls, depression, heart attack, pacemaker, neuropathy, and R elbow surgery. Pt amb w a large base quad cane and DF assist AFO. Pt has had multiple falls prior to most recent hospitalization that normally occur with transitional movements like getting out of bed or into a car, prabhu when he is tired. There is an incline and gravel on their driveway which his daughter believes may be contributing to the falls with car transfers. Pt has required 24/7 caregiving since his CVA in 2013, which is provided by his daughter during the daytime and his at nighttime. Prior Treatments and Tests PT, OT, ST. Has seen improvements with PT, but discontinued d/t plateauing of function. Future Testing and Treatments Planned OT and speech at [facility] Treatment Goals Patient/Caregiver Goals To improve walking endurance, balance and to decrease fall risk. Prior Functional Status Baseline Function- ADL's Needs Assist Baseline Function- Mobility Needs Assist Baseline Function- Gait LBQC, AFO Baseline Function- Work/School NA Baseline Function- Recreation/Hobbies Able to ride in car with his daughter to drop of grandchildren at school. Able to amb short distances in the community w/LBQC. Able to use motorized carts at larger stores PT-OP-C Subjective Start: 11/10/19 12:59 Freq: Status: Active Protocol: Document 12/09/19 16:03 DCW (Rec: 12/09/19 16:50 DCW [id number]) OP-PT Subjective Patient Comments Patient Comments Pt unhappy with all the rain recently PT-OP-D Balance Start: 11/10/19 18:02 Freq: Status: Active Protocol: Document 11/10/19 18:02 AMH (Rec: 11/10/19 18:05 AMH [email or web address]) OP-PT Balance Assessment Standing Balance Static Standing Balance Ability Fair Dynamic Standing Balance Ability Fair Device Used large based quad cane Standing Balance Comments Fair standing balance with LBQC near by Tinetti Balance Assessment Sitting Balance Sitting Balance Steady, safe Arising from Chair Ability to Arise Able, uses arms to help Standing Balance Immediate Standing Balance Unsteady Standing Balance Steady, wide stance Nudged Response Staggers, catches self Standing with Eyes Closed Unsteady Turning Step Pattern Turning 360 Degrees Discontinuous steps Stability Turning 360 Degrees Unsteady, grabs/staggers Sitting Down Sitting Down Uses arms or unsteady Gait and Step Right Foot Step Length Does pass stance foot Right Foot Step Height Does not clear floor Left Foot Step Length Does not pass stance foot Left Foot Step Height Does not clear floor Gait Description Path Description Mild/moderate deviation Trunk Description Marked sway or uses aide Walking Stance Heels apart Scoring and Interpretation Tinetti Composite Score (points) 7 Interpretation of Scores High risk for falls(< 19) Tinetti Impairment Rating from Composite 60 to <80% Impaired (Score 6- Score 11) Estrella Fall Scale Copyright Permission PT-OP-E Functional Tests Start: 11/10/19 18:02 Freq: Status: Active Protocol: Document 11/10/19 18:02 [facility] (Rec: 11/10/19 18:05 [facility] [email or web address]) Functional Tests 6 Minute Walk Test Distance 224 ft Device Used large base quad cane Comments cued increase LLE step passed RLE Tinetti Balance and Gait Assessment Composite Score Impairment Rating 40 to <60% Impaired (Score 12- 16) PT-OP-G Mobility & Gait Start: 11/10/19 18:02 Freq: Status: Active Protocol: Document 11/10/19 18:02 [facility] (Rec: 11/10/19 18:05 [facility] [email or web address]) OP Mobility Evaluation Bed Mobility Rolling able to roll in bed ind Supine to and from Sit able to transfer supine to and from sit ind Transfers Sit to Stand Heavy use of LUE to push up from chair. Pt had some instability with rising from chair. OP Gait Assessment Gait Gait Assistance Required: Standby Assistance Assistive Devices Assistive Device Large Based Quad Cane Orthotic/Prosthetic Devices or Brace: Yes Gait Deviations General Gait Pattern Antalgic,Decreased Stride Length,Decreased Feet Clearance,Narrow Based Gait Factors Limiting Gait Function Factors Limiting Gait Function Decreased Activity Tolerance, Decreased Strength,Poor Balance,Poor Safety Awareness PT-OP-M Strength Start: 11/10/19 18:02 Freq: Status: Active Protocol: Document 11/10/19 13:45 [facility] (Rec: 11/11/19 09:37 [facility] [email or web address]) Hip Strength Hip Manual Muscle Testing Right Flexion (L2) 2 Poor Extension (S1) 2 Poor Abduction 2 Poor External Rotation 2 Poor Internal Rotation 2 Poor Left Flexion (L2) 3+ Fair+ Extension (S1) 3+ Fair+ Abduction 3+ Fair+ Adduction 3+ Fair+ External Rotation 3+ Fair+ Internal Rotation 3+ Fair+ Knee Strength Knee Manual Muscle Testing Right Flexion (S2) 2 Poor Extension (L3) 2+ Poor+ Left Reason Not Measured WFL PT-OP-Q Treatments Start: 11/10/19 18:02 Freq: Status: Active Protocol: Document 12/09/19 16:03 DCW (Rec: 12/09/19 16:50 DCW [id number]) Cardio Equipment Recumbent Elliptical (Biodex) Duration (Minutes) 5 Resistance 1 Seat Position 7 Gym Equipment Shuttle Balance red clips Details Red Comments WBOS (EO/EC, Staggered) Therapeutic Exercises Standing Exercises 2 Standing Exercise Name standing side steps Resistance Yellow Equipment Used T-band Reps/Minutes 2 x length of rail Other Exercises hurdles Other Exercise Name Hurdles Comments Fwd, Lateral PT-OP-T Assessment and Plan Start: 11/10/19 18:02 Freq: Status: Active Protocol: Document 12/09/19 16:03 DCW (Rec: 12/09/19 16:50 DCW [id number]) Physical Therapy Assessment Impairments Impairments Activity Tolerance,Balance, Coordination,Functional Activities,Functional Mobility ,Gait,Pain,Posture,ROM, Sensation,Soft Tissue Mobility ,Strength,Tone,Transfers Goals Tinnetti Impairment high fall risk Short Term Goal (STG) Pt will improve his ability to turn and step up with gait patterns to decrease fall risk . STG Duration 4 weeks Customer Accounts Advisor Goal (LTG) Pt will increase Tinnetti score to at least 24/28 in order to decrease fall risk to low. LTG Duration 8 weeks Gait Impairment gait deviations Short Term Goal (STG) Pt will be able to amb for 20 ft with minimal in-toeing of LLE in order to reduce risk of falls. STG Duration 4 weeks Customer Accounts Advisor Goal (LTG) Pt will be able to amb for 50 ft without leaning onto LBQC for heavy support in order to reduce fall risk. LTG Duration 8 weeks Assessment Summary Assessment As usual, pt presented with low motivation to participate today, however completed all requested tasks. Physical Therapy Plan Frequency and Duration Frequency of Treatment 2x/Week Duration of Treatment 8 Plan of Care Start Date 11/10/19 Plan of Care End Date 01/05/20 Therapeutic Interventions Therapeutic Interventions Balance Training,Gait Training ,Home Exercise Program, Neuromuscular Re-education, Orthotic/Prosthetic Management ,Patient/Caregiver Education, Self-Care/Home Management, Therapeutic Exercises Next Visit Focus/Plan Next Note Type Treatment Note Next Visit Plan Work on LE strengthening, gait training with quad cane working to increase distance, balance training and exercises
--- NOTE | 2019-12-14 15:17 | PT.OTN ---
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 (12/14/19) Weakness (12/14/19) Physical Therapy Treatment Note PT-OP-A Visit Information Start: 11/10/19 12:59 Freq: Status: Active Protocol: Document 12/14/19 14:30 DCW (Rec: 12/14/19 15:17 DCW [id number]) Out-Patient Physical Therapy Visit Information Visit Information Visit Type Treatment Note Visit Start Time 14:30 Visit Stop Time 15:15 Total Visit Minutes 45 Visit Number 8 Number of CUT OFF SAW OPERATOR Visits 0 Evaluation Information Evaluation Date 11/10/19 PT-OP-B Current Condition Start: 11/10/19 12:59 Freq: Status: Active Protocol: Document 11/10/19 17:38 AMH (Rec: 11/10/19 18:01 AMH [email or web address]) Current Condition History of Current Condition Onset Date CVA in 2013. Falls x3 & hospitalization 06/22/19, and August 2019 Current Complaints dec activitiy tolerance, poor balance, dec amb speed History of Current Condition Pt is a 63 y.o. 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 Pt has been seen at [facility] for PT, OT, ST over the past few years. He was recently hospitalized ( 06/22/19) for 3 falls in the same day. And then again in August 2019. The patient had very low sodium levels at the time One fall occured in the shower and 2 occured getting out of bed. Since recent hospitalization, daughter reports she has seen a decline in his function in dec cognitive processing. Pt has dec stamina with walking, is more unstable on his feet, has been shuffling more and appears to have less coordination. Daughter belives he fell on 06/22/19 was due to pain in his LLE (from RA). Pt reports no sensation on RLE. He has a hx of Rhemuatoid Arthritis, blood clots, depression, diabetes mellitus I, falls, depression, heart attack, pacemaker, neuropathy, and R elbow surgery. Pt amb w a large base quad cane and DF assist AFO. Pt has had multiple falls prior to most recent hospitalization that normally occur with transitional movements like getting out of bed or into a car, prabhu when he is tired. There is an incline and gravel on their driveway which his daughter believes may be contributing to the falls with car transfers. Pt has required 24/7 caregiving since his CVA in 2013, which is provided by his daughter during the daytime and his at nighttime. Prior Treatments and Tests PT, OT, ST. Has seen improvements with PT, but discontinued d/t plateauing of function. Future Testing and Treatments Planned OT and speech at [facility] Treatment Goals Patient/Caregiver Goals To improve walking endurance, balance and to decrease fall risk. Prior Functional Status Baseline Function- ADL's Needs Assist Baseline Function- Mobility Needs Assist Baseline Function- Gait LBQC, AFO Baseline Function- Work/School NA Baseline Function- Recreation/Hobbies Able to ride in car with his daughter to drop of grandchildren at school. Able to amb short distances in the community w/LBQC. Able to use motorized carts at larger stores PT-OP-C Subjective Start: 11/10/19 12:59 Freq: Status: Active Protocol: Document 12/14/19 14:30 DCW (Rec: 12/14/19 15:17 DCW [id number]) OP-PT Subjective Patient Comments Patient Comments Pt indicates that he is doing well today. PT-OP-D Balance Start: 11/10/19 18:02 Freq: Status: Active Protocol: Document 11/10/19 18:02 AMH (Rec: 11/10/19 18:05 AMH [email or web address]) OP-PT Balance Assessment Standing Balance Static Standing Balance Ability Fair Dynamic Standing Balance Ability Fair Device Used large based quad cane Standing Balance Comments Fair standing balance with LBQC near by Tinetti Balance Assessment Sitting Balance Sitting Balance Steady, safe Arising from Chair Ability to Arise Able, uses arms to help Standing Balance Immediate Standing Balance Unsteady Standing Balance Steady, wide stance Nudged Response Staggers, catches self Standing with Eyes Closed Unsteady Turning Step Pattern Turning 360 Degrees Discontinuous steps Stability Turning 360 Degrees Unsteady, grabs/staggers Sitting Down Sitting Down Uses arms or unsteady Gait and Step Right Foot Step Length Does pass stance foot Right Foot Step Height Does not clear floor Left Foot Step Length Does not pass stance foot Left Foot Step Height Does not clear floor Gait Description Path Description Mild/moderate deviation Trunk Description Marked sway or uses aide Walking Stance Heels apart Scoring and Interpretation Tinetti Composite Score (points) 7 Interpretation of Scores High risk for falls(< 19) Tinetti Impairment Rating from Composite 60 to <80% Impaired (Score 6- Score 11) Estrella Fall Scale Copyright Permission PT-OP-E Functional Tests Start: 11/10/19 18:02 Freq: Status: Active Protocol: Document 11/10/19 18:02 [facility] (Rec: 11/10/19 18:05 [facility] [email or web address]) Functional Tests 6 Minute Walk Test Distance 224 ft Device Used large base quad cane Comments cued increase LLE step passed RLE Tinetti Balance and Gait Assessment Composite Score Impairment Rating 40 to <60% Impaired (Score 12- 16) PT-OP-G Mobility & Gait Start: 11/10/19 18:02 Freq: Status: Active Protocol: Document 11/10/19 18:02 [facility] (Rec: 11/10/19 18:05 [facility] [email or web address]) OP Mobility Evaluation Bed Mobility Rolling able to roll in bed ind Supine to and from Sit able to transfer supine to and from sit ind Transfers Sit to Stand Heavy use of LUE to push up from chair. Pt had some instability with rising from chair. OP Gait Assessment Gait Gait Assistance Required: Standby Assistance Assistive Devices Assistive Device Large Based Quad Cane Orthotic/Prosthetic Devices or Brace: Yes Gait Deviations General Gait Pattern Antalgic,Decreased Stride Length,Decreased Feet Clearance,Narrow Based Gait Factors Limiting Gait Function Factors Limiting Gait Function Decreased Activity Tolerance, Decreased Strength,Poor Balance,Poor Safety Awareness PT-OP-M Strength Start: 11/10/19 18:02 Freq: Status: Active Protocol: Document 11/10/19 13:45 [facility] (Rec: 11/11/19 09:37 [facility] [email or web address]) Hip Strength Hip Manual Muscle Testing Right Flexion (L2) 2 Poor Extension (S1) 2 Poor Abduction 2 Poor External Rotation 2 Poor Internal Rotation 2 Poor Left Flexion (L2) 3+ Fair+ Extension (S1) 3+ Fair+ Abduction 3+ Fair+ Adduction 3+ Fair+ External Rotation 3+ Fair+ Internal Rotation 3+ Fair+ Knee Strength Knee Manual Muscle Testing Right Flexion (S2) 2 Poor Extension (L3) 2+ Poor+ Left Reason Not Measured WFL PT-OP-Q Treatments Start: 11/10/19 18:02 Freq: Status: Active Protocol: Document 12/14/19 14:30 DCW (Rec: 12/14/19 15:17 DCW [id number]) Cardio Equipment Recumbent Elliptical (Biodex) Duration (Minutes) 5 Resistance 1 Seat Position 7 Gym Equipment Shuttle Balance red clips Details Red Comments WBOS (EO/EC, Staggered) Therapeutic Exercises Standing Exercises 2 Standing Exercise Name Resisted amb - lateral, fwd Resistance Yellow Equipment Used T-band Reps/Minutes 2 x length of rail Other Exercises hurdles Other Exercise Name Hurdles Comments Fwd, Lateral PT-OP-T Assessment and Plan Start: 11/10/19 18:02 Freq: Status: Active Protocol: Document 12/14/19 14:30 DCW (Rec: 12/14/19 15:17 DCW [id number]) Physical Therapy Assessment Impairments Impairments Activity Tolerance,Balance, Coordination,Functional Activities,Functional Mobility ,Gait,Pain,Posture,ROM, Sensation,Soft Tissue Mobility ,Strength,Tone,Transfers Goals Tinnetti Impairment high fall risk Short Term Goal (STG) Pt will improve his ability to turn and step up with gait patterns to decrease fall risk . STG Duration 4 weeks Salt Maker Goal (LTG) Pt will increase Tinnetti score to at least 24/28 in order to decrease fall risk to low. LTG Duration 8 weeks Gait Impairment gait deviations Short Term Goal (STG) Pt will be able to amb for 20 ft with minimal in-toeing of LLE in order to reduce risk of falls. STG Duration 4 weeks Salt Maker Goal (LTG) Pt will be able to amb for 50 ft without leaning onto LBQC for heavy support in order to reduce fall risk. LTG Duration 8 weeks Assessment Summary Assessment Pt did well today, was willing to participate a little bit more than usual. Physical Therapy Plan Frequency and Duration Frequency of Treatment 2x/Week Duration of Treatment 8 Plan of Care Start Date 11/10/19 Plan of Care End Date 01/05/20 Therapeutic Interventions Therapeutic Interventions Balance Training,Gait Training ,Home Exercise Program, Neuromuscular Re-education, Orthotic/Prosthetic Management ,Patient/Caregiver Education, Self-Care/Home Management, Therapeutic Exercises Next Visit Focus/Plan Next Note Type Treatment Note Next Visit Plan Work on LE strengthening, gait training with quad cane working to increase distance, balance training and exercises
--- NOTE | 2019-12-16 16:16 | PT.OTN ---
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 (12/16/19) Weakness (12/16/19) Physical Therapy Treatment Note PT-OP-A Visit Information Start: 11/10/19 12:59 Freq: Status: Active Protocol: Document 12/16/19 15:15 DCW (Rec: 12/16/19 16:16 DCW [id number]) Out-Patient Physical Therapy Visit Information Visit Information Visit Type Treatment Note Visit Start Time 15:15 Visit Stop Time 16:00 Total Visit Minutes 45 Visit Number 9 Number of SENIOR CONTRACT SPECIALIST Visits 0 Evaluation Information Evaluation Date 11/10/19 PT-OP-B Current Condition Start: 11/10/19 12:59 Freq: Status: Active Protocol: Document 11/10/19 17:38 [facility] (Rec: 11/10/19 18:01 [facility] [email or web address]) Current Condition History of Current Condition Onset Date CVA in 2013. Falls x3 & hospitalization 06/22/19, and August 2019 Current Complaints dec activitiy tolerance, poor balance, dec amb speed History of Current Condition Pt is a 63 y.o. 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 Pt has been seen at [facility] OP for PT, OT, ST over the past few years. He was recently hospitalized ( 06/22/19) for 3 falls in the same day. And then again in August 2019. The patient had very low sodium levels at the time One fall occured in the shower and 2 occured getting out of bed. Since recent hospitalization, daughter reports she has seen a decline in his function in dec cognitive processing. Pt has dec stamina with walking, is more unstable on his feet, has been shuffling more and appears to have less coordination. Daughter belives he fell on 06/22/19 was due to pain in his LLE (from RA). Pt reports no sensation on RLE. He has a hx of Rhemuatoid Arthritis, blood clots, depression, diabetes mellitus I, falls, depression, heart attack, pacemaker, neuropathy, and R elbow surgery. Pt amb w a large base quad cane and DF assist AFO. Pt has had multiple falls prior to most recent hospitalization that normally occur with transitional movements like getting out of bed or into a car, prabhu when he is tired. There is an incline and gravel on their driveway which his daughter believes may be contributing to the falls with car transfers. Pt has required 24/7 caregiving since his CVA in 2013, which is provided by his daughter during the daytime and his at nighttime. Prior Treatments and Tests PT, OT, ST. Has seen improvements with PT, but discontinued d/t plateauing of function. Future Testing and Treatments Planned OT and speech at [facility] Treatment Goals Patient/Caregiver Goals To improve walking endurance, balance and to decrease fall risk. Prior Functional Status Baseline Function- ADL's Needs Assist Baseline Function- Mobility Needs Assist Baseline Function- Gait LBQC, AFO Baseline Function- Work/School NA Baseline Function- Recreation/Hobbies Able to ride in car with his daughter to drop of grandchildren at school. Able to amb short distances in the community w/LBQC. Able to use motorized carts at larger stores PT-OP-C Subjective Start: 11/10/19 12:59 Freq: Status: Active Protocol: Document 12/16/19 15:15 DCW (Rec: 12/16/19 16:16 DCW [id number]) OP-PT Subjective Patient Comments Patient Comments Pt has to come into the hospital today for a scan, so he has done more walking today than normal, per his . PT-OP-D Balance Start: 11/10/19 18:02 Freq: Status: Active Protocol: Document 11/10/19 18:02 AMH (Rec: 11/10/19 18:05 [facility] [email or web address]) OP-PT Balance Assessment Standing Balance Static Standing Balance Ability Fair Dynamic Standing Balance Ability Fair Device Used large based quad cane Standing Balance Comments Fair standing balance with LBQC near by Tinetti Balance Assessment Sitting Balance Sitting Balance Steady, safe Arising from Chair Ability to Arise Able, uses arms to help Standing Balance Immediate Standing Balance Unsteady Standing Balance Steady, wide stance Nudged Response Staggers, catches self Standing with Eyes Closed Unsteady Turning Step Pattern Turning 360 Degrees Discontinuous steps Stability Turning 360 Degrees Unsteady, grabs/staggers Sitting Down Sitting Down Uses arms or unsteady Gait and Step Right Foot Step Length Does pass stance foot Right Foot Step Height Does not clear floor Left Foot Step Length Does not pass stance foot Left Foot Step Height Does not clear floor Gait Description Path Description Mild/moderate deviation Trunk Description Marked sway or uses aide Walking Stance Heels apart Scoring and Interpretation Tinetti Composite Score (points) 7 Interpretation of Scores High risk for falls(< 19) Tinetti Impairment Rating from Composite 60 to <80% Impaired (Score 6- Score 11) Estrella Fall Scale Copyright Permission PT-OP-E Functional Tests Start: 11/10/19 18:02 Freq: Status: Active Protocol: Document 11/10/19 18:02 AMH (Rec: 11/10/19 18:05 [facility] [email or web address]) Functional Tests 6 Minute Walk Test Distance 224 ft Device Used large base quad cane Comments cued increase LLE step passed RLE Tinetti Balance and Gait Assessment Composite Score Impairment Rating 40 to <60% Impaired (Score 12- 16) PT-OP-G Mobility & Gait Start: 11/10/19 18:02 Freq: Status: Active Protocol: Document 11/10/19 18:02 [facility] (Rec: 11/10/19 18:05 [facility] [email or web address]) OP Mobility Evaluation Bed Mobility Rolling able to roll in bed ind Supine to and from Sit able to transfer supine to and from sit ind Transfers Sit to Stand Heavy use of LUE to push up from chair. Pt had some instability with rising from chair. OP Gait Assessment Gait Gait Assistance Required: Standby Assistance Assistive Devices Assistive Device Large Based Quad Cane Orthotic/Prosthetic Devices or Brace: Yes Gait Deviations General Gait Pattern Antalgic,Decreased Stride Length,Decreased Feet Clearance,Narrow Based Gait Factors Limiting Gait Function Factors Limiting Gait Function Decreased Activity Tolerance, Decreased Strength,Poor Balance,Poor Safety Awareness PT-OP-M Strength Start: 11/10/19 18:02 Freq: Status: Active Protocol: Document 11/10/19 13:45 [facility] (Rec: 11/11/19 09:37 [facility] [email or web address]) Hip Strength Hip Manual Muscle Testing Right Flexion (L2) 2 Poor Extension (S1) 2 Poor Abduction 2 Poor External Rotation 2 Poor Internal Rotation 2 Poor Left Flexion (L2) 3+ Fair+ Extension (S1) 3+ Fair+ Abduction 3+ Fair+ Adduction 3+ Fair+ External Rotation 3+ Fair+ Internal Rotation 3+ Fair+ Knee Strength Knee Manual Muscle Testing Right Flexion (S2) 2 Poor Extension (L3) 2+ Poor+ Left Reason Not Measured WFL PT-OP-Q Treatments Start: 11/10/19 18:02 Freq: Status: Active Protocol: Document 12/16/19 15:15 DCW (Rec: 12/16/19 16:16 DCW [id number]) Cardio Equipment Recumbent Elliptical (Biodex) Duration (Minutes) 5 Resistance 1 Seat Position 7 Gym Equipment Shuttle Balance red clips Details Red Comments WBOS (EO/EC, Staggered) Therapeutic Exercises Standing Exercises 2 Standing Exercise Name Resisted amb - lateral, fwd Resistance Yellow Equipment Used T-band Reps/Minutes 2 x length of rail Other Exercises hurdles Other Exercise Name Hurdles Resistance 4# Comments Fwd, Lateral Neuro Re-Education Treatment Balance Activities uneven surface Details Balloon Volleyball Surface Davis foam PT-OP-T Assessment and Plan Start: 11/10/19 18:02 Freq: Status: Active Protocol: Document 12/16/19 15:15 DCW (Rec: 12/16/19 16:16 DCW [id number]) Physical Therapy Assessment Impairments Impairments Activity Tolerance,Balance, Coordination,Functional Activities,Functional Mobility ,Gait,Pain,Posture,ROM, Sensation,Soft Tissue Mobility ,Strength,Tone,Transfers Goals Tinnetti Impairment high fall risk Short Term Goal (STG) Pt will improve his ability to turn and step up with gait patterns to decrease fall risk . STG Duration 4 weeks Heavy Forging Machine Operator Goal (LTG) Pt will increase Tinnetti score to at least 24/28 in order to decrease fall risk to low. LTG Duration 8 weeks Gait Impairment gait deviations Short Term Goal (STG) Pt will be able to amb for 20 ft with minimal in-toeing of LLE in order to reduce risk of falls. STG Duration 4 weeks Heavy Forging Machine Operator Goal (LTG) Pt will be able to amb for 50 ft without leaning onto LBQC for heavy support in order to reduce fall risk. LTG Duration 8 weeks Assessment Summary Assessment Pt was self-limiting today, stopped a few exercises on his own with no warning when he decided he was done. Physical Therapy Plan Frequency and Duration Frequency of Treatment 2x/Week Duration of Treatment 8 Plan of Care Start Date 11/10/19 Plan of Care End Date 01/05/20 Therapeutic Interventions Therapeutic Interventions Balance Training,Gait Training ,Home Exercise Program, Neuromuscular Re-education, Orthotic/Prosthetic Management ,Patient/Caregiver Education, Self-Care/Home Management, Therapeutic Exercises Next Visit Focus/Plan Next Note Type Treatment Note Next Visit Plan Work on LE strengthening, gait training with quad cane working to increase distance, balance training and exercises
--- NOTE | 2019-12-21 11:11 | PT.OTN ---
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 (12/21/19) Weakness (12/21/19) Physical Therapy Treatment Note PT-OP-A Visit Information Start: 11/10/19 12:59 Freq: Status: Active Protocol: Document 12/21/19 10:30 DCW (Rec: 12/21/19 11:11 DCW [id number]) Out-Patient Physical Therapy Visit Information Visit Information Visit Type Treatment Note Visit Start Time 10:30 Visit Stop Time 11:15 Total Visit Minutes 45 Visit Number 10 Number of CRIMPING MACHINE OPERATOR Visits 0 Evaluation Information Evaluation Date 11/10/19 PT-OP-B Current Condition Start: 11/10/19 12:59 Freq: Status: Active Protocol: Document 11/10/19 17:38 [facility]H (Rec: 11/10/19 18:01 [facility]H [email or web address]) Current Condition History of Current Condition Onset Date CVA in 2013. Falls x3 & hospitalization 06/22/19, and August 2019 Current Complaints dec activitiy tolerance, poor balance, dec amb speed History of Current Condition Pt is a 63 y.o. 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 Pt has been seen at [facility] OP for PT, OT, ST over the past few years. He was recently hospitalized ( 06/22/19) for 3 falls in the same day. And then again in August 2019. The patient had very low sodium levels at the time One fall occured in the shower and 2 occured getting out of bed. Since recent hospitalization, daughter reports she has seen a decline in his function in dec cognitive processing. Pt has dec stamina with walking, is more unstable on his feet, has been shuffling more and appears to have less coordination. Daughter belives he fell on 06/22/19 was due to pain in his LLE (from RA). Pt reports no sensation on RLE. He has a hx of Rhemuatoid Arthritis, blood clots, depression, diabetes mellitus I, falls, depression, heart attack, pacemaker, neuropathy, and R elbow surgery. Pt amb w a large base quad cane and DF assist AFO. Pt has had multiple falls prior to most recent hospitalization that normally occur with transitional movements like getting out of bed or into a car, prabhu when he is tired. There is an incline and gravel on their driveway which his daughter believes may be contributing to the falls with car transfers. Pt has required 24/7 caregiving since his CVA in 2013, which is provided by his daughter during the daytime and his at nighttime. Prior Treatments and Tests PT, OT, ST. Has seen improvements with PT, but discontinued d/t plateauing of function. Future Testing and Treatments Planned OT and speech at [facility] Treatment Goals Patient/Caregiver Goals To improve walking endurance, balance and to decrease fall risk. Prior Functional Status Baseline Function- ADL's Needs Assist Baseline Function- Mobility Needs Assist Baseline Function- Gait LBQC, AFO Baseline Function- Work/School NA Baseline Function- Recreation/Hobbies Able to ride in car with his daughter to drop of grandchildren at school. Able to amb short distances in the community w/LBQC. Able to use motorized carts at larger stores PT-OP-C Subjective Start: 11/10/19 12:59 Freq: Status: Active Protocol: Document 12/21/19 10:30 DCW (Rec: 12/21/19 11:11 DCW [id number]) OP-PT Subjective Patient Comments Patient Comments ruggling to get ready this morning, still trying to finish his breakfast as he walked in to the clinic today. PT-OP-D Balance Start: 11/10/19 18:02 Freq: Status: Active Protocol: Document 11/10/19 18:02 [facility]H (Rec: 11/10/19 18:05 [facility]H [email or web address]) OP-PT Balance Assessment Standing Balance Static Standing Balance Ability Fair Dynamic Standing Balance Ability Fair Device Used large based quad cane Standing Balance Comments Fair standing balance with LBQC near by Tinetti Balance Assessment Sitting Balance Sitting Balance Steady, safe Arising from Chair Ability to Arise Able, uses arms to help Standing Balance Immediate Standing Balance Unsteady Standing Balance Steady, wide stance Nudged Response Staggers, catches self Standing with Eyes Closed Unsteady Turning Step Pattern Turning 360 Degrees Discontinuous steps Stability Turning 360 Degrees Unsteady, grabs/staggers Sitting Down Sitting Down Uses arms or unsteady Gait and Step Right Foot Step Length Does pass stance foot Right Foot Step Height Does not clear floor Left Foot Step Length Does not pass stance foot Left Foot Step Height Does not clear floor Gait Description Path Description Mild/moderate deviation Trunk Description Marked sway or uses aide Walking Stance Heels apart Scoring and Interpretation Tinetti Composite Score (points) 7 Interpretation of Scores High risk for falls(< 19) Tinetti Impairment Rating from Composite 60 to <80% Impaired (Score 6- Score 11) Estrella Fall Scale Copyright Permission PT-OP-E Functional Tests Start: 11/10/19 18:02 Freq: Status: Active Protocol: Document 11/10/19 18:02 [facility] (Rec: 11/10/19 18:05 [facility] [email or web address]) Functional Tests 6 Minute Walk Test Distance 224 ft Device Used large base quad cane Comments cued increase LLE step passed RLE Tinetti Balance and Gait Assessment Composite Score Impairment Rating 40 to <60% Impaired (Score 12- 16) PT-OP-G Mobility & Gait Start: 11/10/19 18:02 Freq: Status: Active Protocol: Document 11/10/19 18:02 [facility] (Rec: 11/10/19 18:05 [facility] [email or web address]) OP Mobility Evaluation Bed Mobility Rolling able to roll in bed ind Supine to and from Sit able to transfer supine to and from sit ind Transfers Sit to Stand Heavy use of LUE to push up from chair. Pt had some instability with rising from chair. OP Gait Assessment Gait Gait Assistance Required: Standby Assistance Assistive Devices Assistive Device Large Based Quad Cane Orthotic/Prosthetic Devices or Brace: Yes Gait Deviations General Gait Pattern Antalgic,Decreased Stride Length,Decreased Feet Clearance,Narrow Based Gait Factors Limiting Gait Function Factors Limiting Gait Function Decreased Activity Tolerance, Decreased Strength,Poor Balance,Poor Safety Awareness PT-OP-M Strength Start: 11/10/19 18:02 Freq: Status: Active Protocol: Document 11/10/19 13:45 [facility] (Rec: 11/11/19 09:37 [facility] [email or web address]) Hip Strength Hip Manual Muscle Testing Right Flexion (L2) 2 Poor Extension (S1) 2 Poor Abduction 2 Poor External Rotation 2 Poor Internal Rotation 2 Poor Left Flexion (L2) 3+ Fair+ Extension (S1) 3+ Fair+ Abduction 3+ Fair+ Adduction 3+ Fair+ External Rotation 3+ Fair+ Internal Rotation 3+ Fair+ Knee Strength Knee Manual Muscle Testing Right Flexion (S2) 2 Poor Extension (L3) 2+ Poor+ Left Reason Not Measured WFL PT-OP-Q Treatments Start: 11/10/19 18:02 Freq: Status: Active Protocol: Document 12/21/19 10:30 DCW (Rec: 12/21/19 11:11 DCW [id number]) Cardio Equipment Recumbent Elliptical (Biodex) Duration (Minutes) 5 Resistance 1 Seat Position 7 Gym Equipment Shuttle Balance red clips Details Red Comments WBOS (EO/EC, Staggered) Therapeutic Exercises Standing Exercises 2 Standing Exercise Name Resisted amb - lateral, fwd/ bkwd Resistance Yellow Equipment Used T-band Reps/Minutes 2 x length of rail 1 Standing Exercise Name Standing marching Equipment Used @ rail Neuro Re-Education Treatment Balance Activities uneven surface Details Balloon Volleyball Surface Davis foam PT-OP-T Assessment and Plan Start: 11/10/19 18:02 Freq: Status: Active Protocol: Document 12/21/19 10:30 DCW (Rec: 12/21/19 11:11 DCW [id number]) Physical Therapy Assessment Impairments Impairments Activity Tolerance,Balance, Coordination,Functional Activities,Functional Mobility ,Gait,Pain,Posture,ROM, Sensation,Soft Tissue Mobility ,Strength,Tone,Transfers Goals Tinnetti Impairment high fall risk Short Term Goal (STG) Pt will improve his ability to turn and step up with gait patterns to decrease fall risk . STG Duration 4 weeks Agent Goal (LTG) Pt will increase Tinnetti score to at least 24/28 in order to decrease fall risk to low. LTG Duration 8 weeks Gait Impairment gait deviations Short Term Goal (STG) Pt will be able to amb for 20 ft with minimal in-toeing of LLE in order to reduce risk of falls. STG Duration 4 weeks Nursing Home Goal (LTG) Pt will be able to amb for 50 ft without leaning onto LBQC for heavy support in order to reduce fall risk. LTG Duration 8 weeks Assessment Summary Assessment Pt doing alright, difficulty getting him to perform an HEP with any regularity. Overall decrease in toe-in during gait , although still present. Physical Therapy Plan Frequency and Duration Frequency of Treatment 2x/Week Duration of Treatment 8 Plan of Care Start Date 11/10/19 Plan of Care End Date 01/05/20 Therapeutic Interventions Therapeutic Interventions Balance Training,Gait Training ,Home Exercise Program, Neuromuscular Re-education, Orthotic/Prosthetic Management ,Patient/Caregiver Education, Self-Care/Home Management, Therapeutic Exercises Next Visit Focus/Plan Next Note Type Treatment Note Next Visit Plan Work on LE strengthening, gait training with quad cane working to increase distance, balance training and exercises
--- NOTE | 2019-12-23 16:45 | PT.OTN ---
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 (12/23/19) Weakness (12/23/19) Physical Therapy Treatment Note PT-OP-A Visit Information Start: 11/10/19 12:59 Freq: Status: Active Protocol: Document 12/23/19 16:00 DCW (Rec: 12/23/19 16:45 DCW [id number]) Out-Patient Physical Therapy Visit Information Visit Information Visit Type Treatment Note Visit Start Time 16:00 Visit Stop Time 16:45 Total Visit Minutes 45 Visit Number 11 Number of FIELD REIMBURSEMENT MANAGER Visits 0 Evaluation Information Evaluation Date 11/10/19 PT-OP-B Current Condition Start: 11/10/19 12:59 Freq: Status: Active Protocol: Document 11/10/19 17:38 [facility] (Rec: 11/10/19 18:01 AMH [email or web address]) Current Condition History of Current Condition Onset Date CVA in 2013. Falls x3 & hospitalization 06/22/19, and August 2019 Current Complaints dec activitiy tolerance, poor balance, dec amb speed History of Current Condition Pt is a 63 y.o. 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 Pt has been seen at [facility] OP for PT, OT, ST over the past few years. He was recently hospitalized ( 06/22/19) for 3 falls in the same day. And then again in August 2019. The patient had very low sodium levels at the time One fall occured in the shower and 2 occured getting out of bed. Since recent hospitalization, daughter reports she has seen a decline in his function in dec cognitive processing. Pt has dec stamina with walking, is more unstable on his feet, has been shuffling more and appears to have less coordination. Daughter belives he fell on 06/22/19 was due to pain in his LLE (from RA). Pt reports no sensation on RLE. He has a hx of Rhemuatoid Arthritis, blood clots, depression, diabetes mellitus I, falls, depression, heart attack, pacemaker, neuropathy, and R elbow surgery. Pt amb w a large base quad cane and DF assist AFO. Pt has had multiple falls prior to most recent hospitalization that normally occur with transitional movements like getting out of bed or into a car, prabhu when he is tired. There is an incline and gravel on their driveway which his daughter believes may be contributing to the falls with car transfers. Pt has required 24/7 caregiving since his CVA in 2013, which is provided by his daughter during the daytime and his at nighttime. Prior Treatments and Tests PT, OT, ST. Has seen improvements with PT, but discontinued d/t plateauing of function. Future Testing and Treatments Planned OT and speech at [facility] Treatment Goals Patient/Caregiver Goals To improve walking endurance, balance and to decrease fall risk. Prior Functional Status Baseline Function- ADL's Needs Assist Baseline Function- Mobility Needs Assist Baseline Function- Gait LBQC, AFO Baseline Function- Work/School NA Baseline Function- Recreation/Hobbies Able to ride in car with his daughter to drop of grandchildren at school. Able to amb short distances in the community w/LBQC. Able to use motorized carts at larger stores PT-OP-C Subjective Start: 11/10/19 12:59 Freq: Status: Active Protocol: Document 12/23/19 16:00 DCW (Rec: 12/23/19 16:45 DCW [id number]) OP-PT Subjective Patient Comments Patient Comments Pt indicates that he is doing well this afternoon. PT-OP-D Balance Start: 11/10/19 18:02 Freq: Status: Active Protocol: Document 11/10/19 18:02 [facility] (Rec: 11/10/19 18:05 AMH [email or web address]) OP-PT Balance Assessment Standing Balance Static Standing Balance Ability Fair Dynamic Standing Balance Ability Fair Device Used large based quad cane Standing Balance Comments Fair standing balance with LBQC near by Tinetti Balance Assessment Sitting Balance Sitting Balance Steady, safe Arising from Chair Ability to Arise Able, uses arms to help Standing Balance Immediate Standing Balance Unsteady Standing Balance Steady, wide stance Nudged Response Staggers, catches self Standing with Eyes Closed Unsteady Turning Step Pattern Turning 360 Degrees Discontinuous steps Stability Turning 360 Degrees Unsteady, grabs/staggers Sitting Down Sitting Down Uses arms or unsteady Gait and Step Right Foot Step Length Does pass stance foot Right Foot Step Height Does not clear floor Left Foot Step Length Does not pass stance foot Left Foot Step Height Does not clear floor Gait Description Path Description Mild/moderate deviation Trunk Description Marked sway or uses aide Walking Stance Heels apart Scoring and Interpretation Tinetti Composite Score (points) 7 Interpretation of Scores High risk for falls(< 19) Tinetti Impairment Rating from Composite 60 to <80% Impaired (Score 6- Score 11) Estrella Fall Scale Copyright Permission PT-OP-E Functional Tests Start: 11/10/19 18:02 Freq: Status: Active Protocol: Document 11/10/19 18:02 [facility] (Rec: 11/10/19 18:05 [facility] [email or web address]) Functional Tests 6 Minute Walk Test Distance 224 ft Device Used large base quad cane Comments cued increase LLE step passed RLE Tinetti Balance and Gait Assessment Composite Score Impairment Rating 40 to <60% Impaired (Score 12- 16) PT-OP-G Mobility & Gait Start: 11/10/19 18:02 Freq: Status: Active Protocol: Document 11/10/19 18:02 [facility] (Rec: 11/10/19 18:05 [facility] [email or web address]) OP Mobility Evaluation Bed Mobility Rolling able to roll in bed ind Supine to and from Sit able to transfer supine to and from sit ind Transfers Sit to Stand Heavy use of LUE to push up from chair. Pt had some instability with rising from chair. OP Gait Assessment Gait Gait Assistance Required: Standby Assistance Assistive Devices Assistive Device Large Based Quad Cane Orthotic/Prosthetic Devices or Brace: Yes Gait Deviations General Gait Pattern Antalgic,Decreased Stride Length,Decreased Feet Clearance,Narrow Based Gait Factors Limiting Gait Function Factors Limiting Gait Function Decreased Activity Tolerance, Decreased Strength,Poor Balance,Poor Safety Awareness PT-OP-M Strength Start: 11/10/19 18:02 Freq: Status: Active Protocol: Document 11/10/19 13:45 [facility] (Rec: 11/11/19 09:37 [facility] [email or web address]) Hip Strength Hip Manual Muscle Testing Right Flexion (L2) 2 Poor Extension (S1) 2 Poor Abduction 2 Poor External Rotation 2 Poor Internal Rotation 2 Poor Left Flexion (L2) 3+ Fair+ Extension (S1) 3+ Fair+ Abduction 3+ Fair+ Adduction 3+ Fair+ External Rotation 3+ Fair+ Internal Rotation 3+ Fair+ Knee Strength Knee Manual Muscle Testing Right Flexion (S2) 2 Poor Extension (L3) 2+ Poor+ Left Reason Not Measured WFL PT-OP-Q Treatments Start: 11/10/19 18:02 Freq: Status: Active Protocol: Document 12/23/19 16:00 DCW (Rec: 12/23/19 16:45 DCW [id number]) Cardio Equipment Recumbent Elliptical (Biodex) Duration (Minutes) 5 Resistance 1 Seat Position 7 Gym Equipment Shuttle Balance red clips Details Red Comments WBOS (EO/EC, Staggered) Therapeutic Exercises Standing Exercises 2 Standing Exercise Name Resisted amb - lateral, fwd/ bkwd Resistance Yellow Equipment Used T-band Reps/Minutes 2 x length of rail 1 Standing Exercise Name Standing marching Resistance 4# Equipment Used @ rail Other Exercises hurdles Other Exercise Name Hurdles Resistance 4# Comments Fwd, Lateral Neuro Re-Education Treatment Balance Activities heel toe gait Details heel toe gait in parallel bars Reps/Duration 2 xms the length of parallel bars PT-OP-T Assessment and Plan Start: 11/10/19 18:02 Freq: Status: Active Protocol: Document 12/23/19 16:00 DCW (Rec: 12/23/19 16:45 DCW [id number]) Physical Therapy Assessment Impairments Impairments Activity Tolerance,Balance, Coordination,Functional Activities,Functional Mobility ,Gait,Pain,Posture,ROM, Sensation,Soft Tissue Mobility ,Strength,Tone,Transfers Goals Tinnetti Impairment high fall risk Short Term Goal (STG) Pt will improve his ability to turn and step up with gait patterns to decrease fall risk . STG Duration 4 weeks Monkey Trainer Goal (LTG) Pt will increase Tinnetti score to at least 24/28 in order to decrease fall risk to low. LTG Duration 8 weeks Gait Impairment gait deviations Short Term Goal (STG) Pt will be able to amb for 20 ft with minimal in-toeing of LLE in order to reduce risk of falls. STG Duration 4 weeks Monkey Trainer Goal (LTG) Pt will be able to amb for 50 ft without leaning onto LBQC for heavy support in order to reduce fall risk. LTG Duration 8 weeks Assessment Summary Assessment Pt tolerated all activities well today, required fewer rest breaks, much less fatigue . Physical Therapy Plan Frequency and Duration Frequency of Treatment 2x/Week Duration of Treatment 8 Plan of Care Start Date 11/10/19 Plan of Care End Date 01/05/20 Therapeutic Interventions Therapeutic Interventions Balance Training,Gait Training ,Home Exercise Program, Neuromuscular Re-education, Orthotic/Prosthetic Management ,Patient/Caregiver Education, Self-Care/Home Management, Therapeutic Exercises Next Visit Focus/Plan Next Note Type Treatment Note Next Visit Plan Work on LE strengthening, gait training with quad cane working to increase distance, balance training and exercises
--- NOTE | 2019-12-28 11:59 | PT.OTN ---
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 (12/28/19) Weakness (12/28/19) Physical Therapy Treatment Note PT-OP-A Visit Information Start: 11/10/19 12:59 Freq: Status: Active Protocol: Document 12/28/19 11:25 DCW (Rec: 12/28/19 11:59 DCW [id number]) Out-Patient Physical Therapy Visit Information Visit Information Visit Type Treatment Note Visit Note 10 min late Visit Start Time 11:25 Visit Stop Time 12:00 Total Visit Minutes 35 Visit Number 12 Number of MOBILE DEVELOPER Visits 0 Evaluation Information Evaluation Date 11/10/19 PT-OP-B Current Condition Start: 11/10/19 12:59 Freq: Status: Active Protocol: Document 11/10/19 17:38 AMH (Rec: 11/10/19 18:01 AMH [email or web address]) Current Condition History of Current Condition Onset Date CVA in 2013. Falls x3 & hospitalization 06/22/19, and August 2019 Current Complaints dec activitiy tolerance, poor balance, dec amb speed History of Current Condition Pt is a 63 y.o. 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 Pt has been seen at [facility] OP for PT, OT, ST over the past few years. He was recently hospitalized ( 06/22/19) for 3 falls in the same day. And then again in August 2019. The patient had very low sodium levels at the time One fall occured in the shower and 2 occured getting out of bed. Since recent hospitalization, daughter reports she has seen a decline in his function in dec cognitive processing. Pt has dec stamina with walking, is more unstable on his feet, has been shuffling more and appears to have less coordination. Daughter saraives he fell on 06/22/19 was due to pain in his LLE (from RA). Pt reports no sensation on RLE. He has a hx of Rhemuatoid Arthritis, blood clots, depression, diabetes mellitus I, falls, depression, heart attack, pacemaker, neuropathy, and R elbow surgery. Pt amb w a large base quad cane and DF assist AFO. Pt has had multiple falls prior to most recent hospitalization that normally occur with transitional movements like getting out of bed or into a car, prabhu when he is tired. There is an incline and gravel on their driveway which his daughter believes may be contributing to the falls with car transfers. Pt has required 24/7 caregiving since his CVA in 2013, which is provided by his daughter during the daytime and his at nighttime. Prior Treatments and Tests PT, OT, ST. Has seen improvements with PT, but discontinued d/t plateauing of function. Future Testing and Treatments Planned OT and speech at [facility] Treatment Goals Patient/Caregiver Goals To improve walking endurance, balance and to decrease fall risk. Prior Functional Status Baseline Function- ADL's Needs Assist Baseline Function- Mobility Needs Assist Baseline Function- Gait LBQC, AFO Baseline Function- Work/School NA Baseline Function- Recreation/Hobbies Able to ride in car with his daughter to drop of grandchildren at school. Able to amb short distances in the community w/LBQC. Able to use motorized carts at larger stores PT-OP-C Subjective Start: 11/10/19 12:59 Freq: Status: Active Protocol: Document 12/28/19 11:25 DCW (Rec: 12/28/19 11:59 DCW [id number]) OP-PT Subjective Patient Comments Patient Comments Pt feels good today. PT-OP-D Balance Start: 11/10/19 18:02 Freq: Status: Active Protocol: Document 11/10/19 18:02 AMH (Rec: 11/10/19 18:05 AMH [email or web address]) OP-PT Balance Assessment Standing Balance Static Standing Balance Ability Fair Dynamic Standing Balance Ability Fair Device Used large based quad cane Standing Balance Comments Fair standing balance with LBQC near by Tinetti Balance Assessment Sitting Balance Sitting Balance Steady, safe Arising from Chair Ability to Arise Able, uses arms to help Standing Balance Immediate Standing Balance Unsteady Standing Balance Steady, wide stance Nudged Response Staggers, catches self Standing with Eyes Closed Unsteady Turning Step Pattern Turning 360 Degrees Discontinuous steps Stability Turning 360 Degrees Unsteady, grabs/staggers Sitting Down Sitting Down Uses arms or unsteady Gait and Step Right Foot Step Length Does pass stance foot Right Foot Step Height Does not clear floor Left Foot Step Length Does not pass stance foot Left Foot Step Height Does not clear floor Gait Description Path Description Mild/moderate deviation Trunk Description Marked sway or uses aide Walking Stance Heels apart Scoring and Interpretation Tinetti Composite Score (points) 7 Interpretation of Scores High risk for falls(< 19) Tinetti Impairment Rating from Composite 60 to <80% Impaired (Score 6- Score 11) Estrella Fall Scale Copyright Permission PT-OP-E Functional Tests Start: 11/10/19 18:02 Freq: Status: Active Protocol: Document 11/10/19 18:02 AMH (Rec: 11/10/19 18:05 [facility] [email or web address]) Functional Tests 6 Minute Walk Test Distance 224 ft Device Used large base quad cane Comments cued increase LLE step passed RLE Tinetti Balance and Gait Assessment Composite Score Impairment Rating 40 to <60% Impaired (Score 12- 16) PT-OP-G Mobility & Gait Start: 11/10/19 18:02 Freq: Status: Active Protocol: Document 11/10/19 18:02 [facility] (Rec: 11/10/19 18:05 [facility] [email or web address]) OP Mobility Evaluation Bed Mobility Rolling able to roll in bed ind Supine to and from Sit able to transfer supine to and from sit ind Transfers Sit to Stand Heavy use of LUE to push up from chair. Pt had some instability with rising from chair. OP Gait Assessment Gait Gait Assistance Required: Standby Assistance Assistive Devices Assistive Device Large Based Quad Cane Orthotic/Prosthetic Devices or Brace: Yes Gait Deviations General Gait Pattern Antalgic,Decreased Stride Length,Decreased Feet Clearance,Narrow Based Gait Factors Limiting Gait Function Factors Limiting Gait Function Decreased Activity Tolerance, Decreased Strength,Poor Balance,Poor Safety Awareness PT-OP-M Strength Start: 11/10/19 18:02 Freq: Status: Active Protocol: Document 11/10/19 13:45 [facility] (Rec: 11/11/19 09:37 [facility] [email or web address]) Hip Strength Hip Manual Muscle Testing Right Flexion (L2) 2 Poor Extension (S1) 2 Poor Abduction 2 Poor External Rotation 2 Poor Internal Rotation 2 Poor Left Flexion (L2) 3+ Fair+ Extension (S1) 3+ Fair+ Abduction 3+ Fair+ Adduction 3+ Fair+ External Rotation 3+ Fair+ Internal Rotation 3+ Fair+ Knee Strength Knee Manual Muscle Testing Right Flexion (S2) 2 Poor Extension (L3) 2+ Poor+ Left Reason Not Measured WFL PT-OP-Q Treatments Start: 11/10/19 18:02 Freq: Status: Active Protocol: Document 12/28/19 11:25 DCW (Rec: 02/24/20 11:59 DCW [id number]) Cardio Equipment Recumbent Elliptical (Biodex) Duration (Minutes) 5 Resistance 1 Seat Position 7 Gym Equipment Shuttle Balance red clips Details Red Comments WBOS (EO/EC, Staggered) Therapeutic Exercises Standing Exercises 4 Standing Exercise Name Step downs Side right Equipment Used 4 step 2 Standing Exercise Name Resisted amb - lateral, fwd/ bkwd Resistance Yellow Equipment Used T-band Reps/Minutes 2 x length of rail PT-OP-T Assessment and Plan Start: 11/10/19 18:02 Freq: Status: Active Protocol: Document 12/28/19 11:25 DCW (Rec: 12/28/19 11:59 DCW [id number]) Physical Therapy Assessment Impairments Impairments Activity Tolerance,Balance, Coordination,Functional Activities,Functional Mobility ,Gait,Pain,Posture,ROM, Sensation,Soft Tissue Mobility ,Strength,Tone,Transfers Goals Tinnetti Impairment high fall risk Short Term Goal (STG) Pt will improve his ability to turn and step up with gait patterns to decrease fall risk . STG Duration 4 weeks Senior Care Goal (LTG) Pt will increase Tinnetti score to at least 24/28 in order to decrease fall risk to low. LTG Duration 8 weeks Gait Impairment gait deviations Short Term Goal (STG) Pt will be able to amb for 20 ft with minimal in-toeing of LLE in order to reduce risk of falls. STG Duration 4 weeks Senior Care Goal (LTG) Pt will be able to amb for 50 ft without leaning onto LBQC for heavy support in order to reduce fall risk. LTG Duration 8 weeks Assessment Summary Assessment Extremely abbreviated session today, pt arrived ten minutes late, and then required a restroom break midway through session. Pt tolerated completed activities well, improving on the shuttle balance. Physical Therapy Plan Frequency and Duration Frequency of Treatment 2x/Week Duration of Treatment 8 Plan of Care Start Date 11/10/19 Plan of Care End Date 01/05/20 Therapeutic Interventions Therapeutic Interventions Balance Training,Gait Training ,Home Exercise Program, Neuromuscular Re-education, Orthotic/Prosthetic Management ,Patient/Caregiver Education, Self-Care/Home Management, Therapeutic Exercises Next Visit Focus/Plan Next Note Type Treatment Note Next Visit Plan Work on LE strengthening, gait training with quad cane working to increase distance, balance training and exercises
--- NOTE | 2019-12-30 16:15 | PT.OTN ---
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 (12/30/19) Weakness (12/30/19) Physical Therapy Treatment Note PT-OP-A Visit Information Start: 11/10/19 12:59 Freq: Status: Active Protocol: Document 12/30/19 15:30 DCW (Rec: 12/30/19 16:15 DCW [id number]) Out-Patient Physical Therapy Visit Information Visit Information Visit Type Treatment Note Visit Start Time 15:30 Visit Stop Time 16:15 Total Visit Minutes 45 Visit Number 13 Number of SILVER BUFFER Visits 0 Evaluation Information Evaluation Date 11/10/19 PT-OP-B Current Condition Start: 11/10/19 12:59 Freq: Status: Active Protocol: Document 11/10/19 17:38 [facility] (Rec: 11/10/19 18:01 [facility] [email or web address]) Current Condition History of Current Condition Onset Date CVA in 2013. Falls x3 & hospitalization 06/22/19, and August 2019 Current Complaints dec activitiy tolerance, poor balance, dec amb speed History of Current Condition Pt is a 63 y.o. 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 Pt has been seen at [facility] OP for PT, OT, ST over the past few years. He was recently hospitalized ( 06/22/19) for 3 falls in the same day. And then again in August 2019. The patient had very low sodium levels at the time One fall occured in the shower and 2 occured getting out of bed. Since recent hospitalization, daughter reports she has seen a decline in his function in dec cognitive processing. Pt has dec stamina with walking, is more unstable on his feet, has been shuffling more and appears to have less coordination. Daughter belives he fell on 06/22/19 was due to pain in his LLE (from RA). Pt reports no sensation on RLE. He has a hx of Rhemuatoid Arthritis, blood clots, depression, diabetes mellitus I, falls, depression, heart attack, pacemaker, neuropathy, and R elbow surgery. Pt amb w a large base quad cane and DF assist AFO. Pt has had multiple falls prior to most recent hospitalization that normally occur with transitional movements like getting out of bed or into a car, prabhu when he is tired. There is an incline and gravel on their driveway which his daughter believes may be contributing to the falls with car transfers. Pt has required 24/7 caregiving since his CVA in 2013, which is provided by his daughter during the daytime and his at nighttime. Prior Treatments and Tests PT, OT, ST. Has seen improvements with PT, but discontinued d/t plateauing of function. Future Testing and Treatments Planned OT and speech at [facility] Treatment Goals Patient/Caregiver Goals To improve walking endurance, balance and to decrease fall risk. Prior Functional Status Baseline Function- ADL's Needs Assist Baseline Function- Mobility Needs Assist Baseline Function- Gait LBQC, AFO Baseline Function- Work/School NA Baseline Function- Recreation/Hobbies Able to ride in car with his daughter to drop of grandchildren at school. Able to amb short distances in the community w/LBQC. Able to use motorized carts at larger stores PT-OP-C Subjective Start: 11/10/19 12:59 Freq: Status: Active Protocol: Document 12/30/19 15:30 DCW (Rec: 12/30/19 16:15 DCW [id number]) OP-PT Subjective Patient Comments Patient Comments Pt a little stiff today, according to his , because he was a few days past due for his shot for arthritis, which he finally got yesterday , but doesn't seem to have taken effect yet. PT-OP-D Balance Start: 11/10/19 18:02 Freq: Status: Active Protocol: Document 11/10/19 18:02 [facility] (Rec: 11/10/19 18:05 [facility] [email or web address]) OP-PT Balance Assessment Standing Balance Static Standing Balance Ability Fair Dynamic Standing Balance Ability Fair Device Used large based quad cane Standing Balance Comments Fair standing balance with LBQC near by Tinetti Balance Assessment Sitting Balance Sitting Balance Steady, safe Arising from Chair Ability to Arise Able, uses arms to help Standing Balance Immediate Standing Balance Unsteady Standing Balance Steady, wide stance Nudged Response Staggers, catches self Standing with Eyes Closed Unsteady Turning Step Pattern Turning 360 Degrees Discontinuous steps Stability Turning 360 Degrees Unsteady, grabs/staggers Sitting Down Sitting Down Uses arms or unsteady Gait and Step Right Foot Step Length Does pass stance foot Right Foot Step Height Does not clear floor Left Foot Step Length Does not pass stance foot Left Foot Step Height Does not clear floor Gait Description Path Description Mild/moderate deviation Trunk Description Marked sway or uses aide Walking Stance Heels apart Scoring and Interpretation Tinetti Composite Score (points) 7 Interpretation of Scores High risk for falls(< 19) Tinetti Impairment Rating from Composite 60 to <80% Impaired (Score 6- Score 11) Estrella Fall Scale Copyright Permission PT-OP-E Functional Tests Start: 11/10/19 18:02 Freq: Status: Active Protocol: Document 11/10/19 18:02 [facility] (Rec: 11/10/19 18:05 [facility] [email or web address]) Functional Tests 6 Minute Walk Test Distance 224 ft Device Used large base quad cane Comments cued increase LLE step passed RLE Tinetti Balance and Gait Assessment Composite Score Impairment Rating 40 to <60% Impaired (Score 12- 16) PT-OP-G Mobility & Gait Start: 11/10/19 18:02 Freq: Status: Active Protocol: Document 11/10/19 18:02 [facility] (Rec: 11/10/19 18:05 [facility] [email or web address]) OP Mobility Evaluation Bed Mobility Rolling able to roll in bed ind Supine to and from Sit able to transfer supine to and from sit ind Transfers Sit to Stand Heavy use of LUE to push up from chair. Pt had some instability with rising from chair. OP Gait Assessment Gait Gait Assistance Required: Standby Assistance Assistive Devices Assistive Device Large Based Quad Cane Orthotic/Prosthetic Devices or Brace: Yes Gait Deviations General Gait Pattern Antalgic,Decreased Stride Length,Decreased Feet Clearance,Narrow Based Gait Factors Limiting Gait Function Factors Limiting Gait Function Decreased Activity Tolerance, Decreased Strength,Poor Balance,Poor Safety Awareness PT-OP-M Strength Start: 11/10/19 18:02 Freq: Status: Active Protocol: Document 11/10/19 13:45 [facility] (Rec: 11/11/19 09:37 [facility] [email or web address]) Hip Strength Hip Manual Muscle Testing Right Flexion (L2) 2 Poor Extension (S1) 2 Poor Abduction 2 Poor External Rotation 2 Poor Internal Rotation 2 Poor Left Flexion (L2) 3+ Fair+ Extension (S1) 3+ Fair+ Abduction 3+ Fair+ Adduction 3+ Fair+ External Rotation 3+ Fair+ Internal Rotation 3+ Fair+ Knee Strength Knee Manual Muscle Testing Right Flexion (S2) 2 Poor Extension (L3) 2+ Poor+ Left Reason Not Measured WFL PT-OP-Q Treatments Start: 11/10/19 18:02 Freq: Status: Active Protocol: Document 12/30/19 15:30 DCW (Rec: 12/30/19 16:15 DCW [id number]) Cardio Equipment Recumbent Elliptical (Biodex) Duration (Minutes) 5 Resistance 1 Seat Position 8 Gym Equipment Shuttle Balance red clips Details Red Comments WBOS (EO/EC), Staggered Therapeutic Exercises Sitting Exercises LAQ Sitting Exercise Name seated LAQ Resistance 5# Reps/Minutes 3x10 pause at end range Standing Exercises 4 Standing Exercise Name Step downs Side right Equipment Used 6 step 3 Standing Exercise Name Toe-taps Side bilateral Resistance 5# Equipment Used 6 step 2 Standing Exercise Name Resisted amb - lateral, fwd/ bkwd Resistance Yellow Equipment Used T-band Reps/Minutes 2 x length of rail PT-OP-T Assessment and Plan Start: 11/10/19 18:02 Freq: Status: Active Protocol: Document 12/30/19 15:30 DCW (Rec: 12/30/19 16:15 DCW [id number]) Physical Therapy Assessment Impairments Impairments Activity Tolerance,Balance, Coordination,Functional Activities,Functional Mobility ,Gait,Pain,Posture,ROM, Sensation,Soft Tissue Mobility ,Strength,Tone,Transfers Goals Tinnetti Impairment high fall risk Short Term Goal (STG) Pt will improve his ability to turn and step up with gait patterns to decrease fall risk . STG Duration 4 weeks Senior Care Goal (LTG) Pt will increase Tinnetti score to at least 24/28 in order to decrease fall risk to low. LTG Duration 8 weeks Gait Impairment gait deviations Short Term Goal (STG) Pt will be able to amb for 20 ft with minimal in-toeing of LLE in order to reduce risk of falls. STG Duration 4 weeks Senior Care Goal (LTG) Pt will be able to amb for 50 ft without leaning onto LBQC for heavy support in order to reduce fall risk. LTG Duration 8 weeks Assessment Summary Assessment Pt did very well today, tolerated all activities, minimal complaints of fatigue. Pt's was present at the treatment session today, which helped a little with pt's overall decrease pt's self- limiting behaviors. Physical Therapy Plan Frequency and Duration Frequency of Treatment 2x/Week Duration of Treatment 8 Plan of Care Start Date 11/10/19 Plan of Care End Date 01/05/20 Therapeutic Interventions Therapeutic Interventions Balance Training,Gait Training ,Home Exercise Program, Neuromuscular Re-education, Orthotic/Prosthetic Management ,Patient/Caregiver Education, Self-Care/Home Management, Therapeutic Exercises Next Visit Focus/Plan Next Note Type Treatment Note Next Visit Plan Work on LE strengthening, gait training with quad cane working to increase distance, balance training and exercises
--- NOTE | 2020-01-04 14:41 | PT.OTN ---
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 (01/04/20) Weakness (01/04/20) Physical Therapy Treatment Note PT-OP-A Visit Information Start: 11/10/19 12:59 Freq: Status: Active Protocol: Document 01/04/20 13:45 DCW (Rec: 01/04/20 14:36 DCW [id number]) Out-Patient Physical Therapy Visit Information Visit Information Visit Type Progress Note Visit Start Time 13:45 Visit Stop Time 14:30 Total Visit Minutes 45 Visit Number 14 Number of GENERAL SUPERINTENDENT Visits 0 Evaluation Information Evaluation Date 11/10/19 PT-OP-B Current Condition Start: 11/10/19 12:59 Freq: Status: Active Protocol: Document 11/10/19 17:38 AMH (Rec: 11/10/19 18:01 AMH [id number]) Current Condition History of Current Condition Onset Date CVA in 2013. Falls x3 & hospitalization 06/22/19, and August 2019 Current Complaints dec activitiy tolerance, poor balance, dec amb speed History of Current Condition Pt is a 63 y.o. 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 Pt has been seen at [facility] for PT, OT, ST over the past few years. He was recently hospitalized ( 06/22/19) for 3 falls in the same day. And then again in August 2019. The patient had very low sodium levels at the time One fall occurred in the shower and 2 occurred getting out of bed. Since recent hospitalization, daughter reports she has seen a decline in his function in dec cognitive processing. Pt has dec stamina with walking, is more unstable on his feet, has been shuffling more and appears to have less coordination. Daughter believes he fell on 06/22/19 was due to pain in his LLE (from RA). Pt reports no sensation on RLE. He has a hx of Rheumatoid Arthritis, blood clots, depression, diabetes mellitus I, falls, depression, heart attack, pacemaker, neuropathy, and R elbow surgery. Pt amb w a large base quad cane and DF assist AFO. Pt has had multiple falls prior to most recent hospitalization that normally occur with transitional movements like getting out of bed or into a car, prabhu when he is tired. There is an incline and gravel on their driveway which his daughter believes may be contributing to the falls with car transfers. Pt has required 24/7 caregiving since his CVA in 2013, which is provided by his daughter during the daytime and his at nighttime. Prior Treatments and Tests PT, OT, ST. Has seen improvements with PT, but discontinued d/t plateauing of function. Future Testing and Treatments Planned OT and speech at [facility] Treatment Goals Patient/Caregiver Goals To improve walking endurance, balance and to decrease fall risk. Prior Functional Status Baseline Function- ADL's Needs Assist Baseline Function- Mobility Needs Assist Baseline Function- Gait LBQC, AFO Baseline Function- Work/School NA Baseline Function- Recreation/Hobbies Able to ride in car with his daughter to drop of grandchildren at school. Able to amb short distances in the community w/LBQC. Able to use motorized carts at larger stores PT-OP-C Subjective Start: 11/10/19 12:59 Freq: Status: Active Protocol: Document 01/04/20 13:45 DCW (Rec: 01/04/20 14:36 DCW [id number]) OP-PT Subjective Patient Comments Patient Comments Pt doing well today. PT-OP-D Balance Start: 11/10/19 18:02 Freq: Status: Active Protocol: Document 01/04/20 13:45 DCW (Rec: 01/04/20 14:12 DCW [id number]) OP-PT Balance Assessment Standing Balance Static Standing Balance Ability Fair Dynamic Standing Balance Ability Fair Device Used large based quad cane Standing Balance Comments Fair standing balance with LBQC near by Tinetti Balance Assessment Sitting Balance Sitting Balance Steady, safe Arising from Chair Ability to Arise Able, uses arms to help Attempts to Arise Able, requires >1 attempt Standing Balance Immediate Standing Balance Steady w/o support Standing Balance Steady, wide stance Nudged Response Steady Standing with Eyes Closed Steady Turning Step Pattern Turning 360 Degrees Discontinuous steps Stability Turning 360 Degrees Unsteady, grabs/staggers Sitting Down Sitting Down Safe, steady Gait and Step Initiation of Gait No hesitancy Right Foot Step Length Does pass stance foot Right Foot Step Height Completely clears floor Left Foot Step Length Does not pass stance foot Left Foot Step Height Completely clears floor Step Description Step Symmetry Step length not equal Step Continuity Stopping or discontinuity Gait Description Path Description Mild/moderate deviation Trunk Description Marked sway or uses aide Walking Stance Heels together Scoring and Interpretation Tinetti Composite Score (points) 17 Interpretation of Scores High risk for falls(< 19) Tinetti Impairment Rating from Composite 20 to <40% Impaired (Score 17- Score 22) Estrella Fall Scale Copyright Permission PT-OP-E Functional Tests Start: 11/10/19 18:02 Freq: Status: Active Protocol: Document 01/04/20 13:45 DCW (Rec: 01/04/20 14:12 DCW [id number]) Functional Tests 6 Minute Walk Test Distance 328 Device Used large base quad cane Comments 0.91 ft/sec PT-OP-G Mobility & Gait Start: 11/10/19 18:02 Freq: Status: Active Protocol: Document 11/10/19 18:02 AMH (Rec: 11/10/19 18:05 AMH [email or web address]) OP Mobility Evaluation Bed Mobility Rolling able to roll in bed ind Supine to and from Sit able to transfer supine to and from sit ind Transfers Sit to Stand Heavy use of LUE to push up from chair. Pt had some instability with rising from chair. OP Gait Assessment Gait Gait Assistance Required: Standby Assistance Assistive Devices Assistive Device Large Based Quad Cane Orthotic/Prosthetic Devices or Brace: Yes Gait Deviations General Gait Pattern Antalgic,Decreased Stride Length,Decreased Feet Clearance,Narrow Based Gait Factors Limiting Gait Function Factors Limiting Gait Function Decreased Activity Tolerance, Decreased Strength,Poor Balance,Poor Safety Awareness PT-OP-M Strength Start: 11/10/19 18:02 Freq: Status: Active Protocol: Document 01/04/20 13:45 DCW (Rec: 01/04/20 14:12 DCW [id number]) Hip Strength Hip Manual Muscle Testing Right Flexion (L2) 2+ Poor+ Extension (S1) 2 Poor Abduction 2 Poor Adduction 2 Poor External Rotation 2+ Poor+ Internal Rotation 3 Fair Left Flexion (L2) 3+ Fair+ Extension (S1) 3+ Fair+ Abduction 3+ Fair+ Adduction 3+ Fair+ External Rotation 3+ Fair+ Internal Rotation 3+ Fair+ Knee Strength Knee Manual Muscle Testing Right Flexion (S2) 2 Poor Extension (L3) 2+ Poor+ Left Reason Not Measured WFL PT-OP-Q Treatments Start: 11/10/19 18:02 Freq: Status: Active Protocol: Document 01/04/20 13:45 DCW (Rec: 01/04/20 14:36 DCW [id number]) Cardio Equipment Recumbent Elliptical (Biodex) Duration (Minutes) 5 Resistance 1 Seat Position 8 PT-OP-T Assessment and Plan Start: 11/10/19 18:02 Freq: Status: Active Protocol: Document 01/04/20 13:45 DCW (Rec: 01/04/20 14:36 DCW [id number]) Physical Therapy Assessment Impairments Impairments Activity Tolerance,Balance, Coordination,Functional Activities,Functional Mobility ,Gait,Pain,Posture,ROM, Sensation,Soft Tissue Mobility ,Strength,Tone,Transfers Goals Tinnetti Impairment high fall risk Short Term Goal (STG) Pt will improve his ability to turn and step up with gait patterns to decrease fall risk . STG Duration 02/15/20 - improving Restaurant Cashier Goal (LTG) Pt will increase Tinnetti score to at least 24/28 in order to decrease fall risk to low. LTG Duration 03/28/20 - Improving () 6MWT Impairment Pt amb 328 feet during 6MWT Skilled Nursing Goal (LTG) A walking speed of <1.97 can indicate an increased risk of further functional decline. Pt to ambulate >400' during 6 MWT in order to decrease his risk. LTG Duration 03/28/20 Gait Impairment gait deviations Short Term Goal (STG) Pt will be able to amb for 20 ft with minimal in-toeing of LLE in order to reduce risk of falls. STG Duration 02/15/20 - Improving Skilled Nursing Goal (LTG) Pt will be able to amb for 50 ft without leaning onto LBQC for heavy support in order to reduce fall risk. LTG Duration 03/28/20 Progress Towards Goals Progress Towards Goals Progressing Toward Goals,Slow Progress due to Medical Issues Assessment Summary Assessment Pt showing great improvement since initial evaluation. 6MWT improved from 224 ft to 328 ft (increase in gait speed from 0.62 ft/sec to 0.91 ft/ sec), and his Tinetti score increased from 728 to 17. Pt gait quality showing some improvement, with decreased, but still present, left foot internal rotation. Pt R LE strength still fairly limited. Continued skilled therapy indicated to improve gait, balance, and decrease burden of care. Physical Therapy Plan Frequency and Duration Frequency of Treatment 2x/Week Duration of Treatment 12 weeks Plan of Care Start Date 01/04/20 Plan of Care End Date 03/28/20 Therapeutic Interventions Therapeutic Interventions Balance Training,Gait Training ,Home Exercise Program, Neuromuscular Re-education, Orthotic/Prosthetic Management ,Patient/Caregiver Education, Self-Care/Home Management, Therapeutic Exercises Next Visit Focus/Plan Next Note Type Treatment Note Next Visit Plan Uneven surface balance and gait, LE strengthening
--- NOTE | 2020-01-04 14:42 | PT.OPPOC ---
Physical, Occupational & Speech Therapy At [facility] 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 (01/04/20) Weakness (01/04/20) Visit Care Team Role Provider Type Delfino Epstein MD Attending Provider Physician Primary Care Provider Specialty: [facility] Practice Address: [address] [place] [address], [id number] Email: [email or web address] Plan Of Care PT-OP-T Assessment and Plan Start: 11/10/19 18:02 Freq: Status: Active Protocol: Document 01/04/20 13:45 DCW (Rec: 01/04/20 14:36 DCW [id number]) Physical Therapy Assessment Impairments Impairments Activity Tolerance,Balance, Coordination,Functional Activities,Functional Mobility ,Gait,Pain,Posture,ROM, Sensation,Soft Tissue Mobility ,Strength,Tone,Transfers Goals Tinnetti Impairment high fall risk Short Term Goal (STG) Pt will improve his ability to turn and step up with gait patterns to decrease fall risk . STG Duration 02/15/20 - improving [facility] Goal (LTG) Pt will increase Tinnetti score to at least 24/28 in order to decrease fall risk to low. LTG Duration 03/28/20 - Improving () 6MWT Impairment Pt amb 328 feet during 6MWT [facility] Goal (LTG) A walking speed of <1.97 can indicate an increased risk of further functional decline. Pt to ambulate >400' during 6 MWT in order to decrease his risk. LTG Duration 03/28/20 Gait Impairment gait deviations Short Term Goal (STG) Pt will be able to amb for 20 ft with minimal in-toeing of LLE in order to reduce risk of falls. STG Duration 02/15/20 - Improving Nub Card Tender Goal (LTG) Pt will be able to amb for 50 ft without leaning onto LBQC for heavy support in order to reduce fall risk. LTG Duration 03/28/20 Progress Towards Goals Progress Towards Goals Progressing Toward Goals,Slow Progress due to Medical Issues Assessment Summary Assessment Pt showing great improvement since initial evaluation. 6MWT improved from 224 ft to 328 ft (increase in gait speed from 0.62 ft/sec to 0.91 ft/ sec), and his Tinetti score increased from 7/28 to 17/28. Pt gait quality showing some improvement, with decreased, but still present, left foot internal rotation. Pt R LE strength still fairly limited. Continued skilled therapy indicated to improve gait, balance, and decrease burden of care. Physical Therapy Plan Frequency and Duration Frequency of Treatment 2x/Week Duration of Treatment 12 weeks Plan of Care Start Date 01/04/20 Plan of Care End Date 03/28/20 Therapeutic Interventions Therapeutic Interventions Balance Training,Gait Training ,Home Exercise Program, Neuromuscular Re-education, Orthotic/Prosthetic Management ,Patient/Caregiver Education, Self-Care/Home Management, Therapeutic Exercises Next Visit Focus/Plan Next Note Type Treatment Note Next Visit Plan Uneven surface balance and gait, LE strengthening Plan of Care Dates Plan of Care Start Date 01/04/20 Plan of Care End Date 03/28/20 Electronically Signed by: Jefferson Ceron, PT 01/04/20 [id number] Please Sign and Return: I have reviewed this Plan of Care and certify that the skilled therapy services above are required to meet the patient?s needs. Physician Signature Date Printed Name and Credentials Clinical Instructor Signature Printed Name and Credentials
--- NOTE | 2020-01-20 14:26 | PT.OTN ---
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 (01/20/20) Weakness (01/20/20) Physical Therapy Treatment Note PT-OP-A Visit Information Start: 11/10/19 12:59 Freq: Status: Active Protocol: Document 01/20/20 07:30 EG (Rec: 01/20/20 09:19 EG [email or web address]) Out-Patient Physical Therapy Visit Information Visit Information Visit Type Treatment Note Visit Start Time 08:15 Visit Stop Time 09:00 Total Visit Minutes 45 Visit Number 15 Number of EPIC WILLOW ANALYST Visits 0 Evaluation Information Evaluation Date 11/10/19 PT-OP-B Current Condition Start: 11/10/19 12:59 Freq: Status: Active Protocol: Document 11/10/19 17:38 AMH (Rec: 11/10/19 18:01 AMH [email or web address]) Current Condition History of Current Condition Onset Date CVA in 2013. Falls x3 & hospitalization 06/22/19, and August 2019 Current Complaints dec activitiy tolerance, poor balance, dec amb speed History of Current Condition Pt is a 63 y.o. 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 Pt has been seen at [facility] for PT, OT, ST over the past few years. He was recently hospitalized ( 06/22/19) for 3 falls in the same day. And then again in August 2019. The patient had very low sodium levels at the time One fall occured in the shower and 2 occured getting out of bed. Since recent hospitalization, daughter reports she has seen a decline in his function in dec cognitive processing. Pt has dec stamina with walking, is more unstable on his feet, has been shuffling more and appears to have less coordination. Daughter carlos he fell on 06/22/19 was due to pain in his LLE (from RA). Pt reports no sensation on RLE. He has a hx of Rhemuatoid Arthritis, blood clots, depression, diabetes mellitus I, falls, depression, heart attack, pacemaker, neuropathy, and R elbow surgery. Pt amb w a large base quad cane and DF assist AFO. Pt has had multiple falls prior to most recent hospitalization that normally occur with transitional movements like getting out of bed or into a car, prabhu when he is tired. There is an incline and gravel on their driveway which his daughter believes may be contributing to the falls with car transfers. Pt has required 24/7 caregiving since his CVA in 2013, which is provided by his daughter during the daytime and his at nighttime. Prior Treatments and Tests PT, OT, ST. Has seen improvements with PT, but discontinued d/t plateauing of function. Future Testing and Treatments Planned OT and speech at [facility] Treatment Goals Patient/Caregiver Goals To improve walking endurance, balance and to decrease fall risk. Prior Functional Status Baseline Function- ADL's Needs Assist Baseline Function- Mobility Needs Assist Baseline Function- Gait LBQC, AFO Baseline Function- Work/School NA Baseline Function- Recreation/Hobbies Able to ride in car with his daughter to drop of grandchildren at school. Able to amb short distances in the community w/LBQC. Able to use motorized carts at larger stores PT-OP-C Subjective Start: 11/10/19 12:59 Freq: Status: Active Protocol: Document 01/20/20 07:30 EG (Rec: 01/20/20 09:19 EG [email or web address]) OP-PT Subjective Patient Comments Patient Comments Per , this is an early appointment for the patient. PT-OP-D Balance Start: 11/10/19 18:02 Freq: Status: Active Protocol: Document 01/04/20 13:45 DCW (Rec: 01/04/20 14:12 DCW [id number]) OP-PT Balance Assessment Standing Balance Static Standing Balance Ability Fair Dynamic Standing Balance Ability Fair Device Used large based quad cane Standing Balance Comments Fair standing balance with LBQC near by Tinetti Balance Assessment Sitting Balance Sitting Balance Steady, safe Arising from Chair Ability to Arise Able, uses arms to help Attempts to Arise Able, requires >1 attempt Standing Balance Immediate Standing Balance Steady w/o support Standing Balance Steady, wide stance Nudged Response Steady Standing with Eyes Closed Steady Turning Step Pattern Turning 360 Degrees Discontinuous steps Stability Turning 360 Degrees Unsteady, grabs/staggers Sitting Down Sitting Down Safe, steady Gait and Step Initiation of Gait No hesitancy Right Foot Step Length Does pass stance foot Right Foot Step Height Completely clears floor Left Foot Step Length Does not pass stance foot Left Foot Step Height Completely clears floor Step Description Step Symmetry Step length not equal Step Continuity Stopping or discontinuity Gait Description Path Description Mild/moderate deviation Trunk Description Marked sway or uses aide Walking Stance Heels together Scoring and Interpretation Tinetti Composite Score (points) 17 Interpretation of Scores High risk for falls(< 19) Tinetti Impairment Rating from Composite 20 to <40% Impaired (Score 17- Score 22) Estrella Fall Scale Copyright Permission PT-OP-E Functional Tests Start: 11/10/19 18:02 Freq: Status: Active Protocol: Document 01/04/20 13:45 DCW (Rec: 01/04/20 14:12 DCW [id number]) Functional Tests 6 Minute Walk Test Distance 328 Device Used large base quad cane Comments 0.91 ft/sec PT-OP-G Mobility & Gait Start: 11/10/19 18:02 Freq: Status: Active Protocol: Document 11/10/19 18:02 AMH (Rec: 11/10/19 18:05 AMH [email or web address]) OP Mobility Evaluation Bed Mobility Rolling able to roll in bed ind Supine to and from Sit able to transfer supine to and from sit ind Transfers Sit to Stand Heavy use of LUE to push up from chair. Pt had some instability with rising from chair. OP Gait Assessment Gait Gait Assistance Required: Standby Assistance Assistive Devices Assistive Device Large Based Quad Cane Orthotic/Prosthetic Devices or Brace: Yes Gait Deviations General Gait Pattern Antalgic,Decreased Stride Length,Decreased Feet Clearance,Narrow Based Gait Factors Limiting Gait Function Factors Limiting Gait Function Decreased Activity Tolerance, Decreased Strength,Poor Balance,Poor Safety Awareness PT-OP-M Strength Start: 11/10/19 18:02 Freq: Status: Active Protocol: Document 01/04/20 13:45 DCW (Rec: 01/04/20 14:12 DCW [id number]) Hip Strength Hip Manual Muscle Testing Right Flexion (L2) 2+ Poor+ Extension (S1) 2 Poor Abduction 2 Poor Adduction 2 Poor External Rotation 2+ Poor+ Internal Rotation 3 Fair Left Flexion (L2) 3+ Fair+ Extension (S1) 3+ Fair+ Abduction 3+ Fair+ Adduction 3+ Fair+ External Rotation 3+ Fair+ Internal Rotation 3+ Fair+ Knee Strength Knee Manual Muscle Testing Right Flexion (S2) 2 Poor Extension (L3) 2+ Poor+ Left Reason Not Measured WFL PT-OP-Q Treatments Start: 11/10/19 18:02 Freq: Status: Active Protocol: Document 01/20/20 07:30 EG (Rec: 01/20/20 09:19 EG [email or web address]) Cardio Equipment Recumbent Elliptical (Biodex) Duration (Minutes) 6 Resistance 2 Seat Position 9 Gym Equipment Shuttle Recovery Unilateral Squats Details Unilateral Squats Resistance 12#, 25# Shuttle Recovery Platform Stable Reps/Time Done on R and L leg Bilateral Squats Details Bilateral Squats Resistance 50#, 62# Shuttle Recovery Platform Stable Reps/Time 2x12 Shuttle Balance red clips Details Red Comments WBOS, Staggered with Left foot in front of right (pt preference). Look up and down 5x, side to side 5x Gait Training Gait Activity Walking around Obstacles Description Walking around obstacles Device Used quad cane Level of Assistance CGA Surface carpet Distance/Duration walked around 5 cones weaving in and out > 2x Treatment Focus swerving through obstacles Comments Able to navigate through cones with proper spacing in feet gait Description Gait training with AD Device Used quad cane Level of Assistance CGA Surface carpet and tile Distance/Duration 200 feet Treatment Focus lifting toe and striking down with heel Neuro Re-Education Treatment Balance Activities shuttle balance Details See Above in Shuttle Balance PT-OP-T Assessment and Plan Start: 11/10/19 18:02 Freq: Status: Active Protocol: Document 01/20/20 07:30 EG (Rec: 01/20/20 09:19 EG [email or web address]) Physical Therapy Assessment Assessment Summary Assessment Patient tolerated treatment well today. He was able to do unilateral squats and navigate getting in and out of shuttle rebound. He did well with balancing on the shuttle board and was able to maintain stability while shifting gaxe to various locations. Patient should continue working on balance training and LE strengthening to decrease fall risk. Physical Therapy Plan Next Visit Focus/Plan Next Note Type Treatment Note Next Visit Plan Uneven surface balance and gait, LE strengthening, practice alternating stepping Ciara Keating DPT, supervised all treatment performed by, and agreed with the plan of care, as performed by Nila Mills, GOYO.
--- NOTE | 2020-04-18 14:47 | PT.OTN ---
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 (04/18/20) Weakness (04/18/20) Physical Therapy Treatment Note PT-OP-A Visit Information Start: 11/10/19 12:59 Freq: Status: Active Protocol: Document 04/18/20 13:48 MB (Rec: 04/18/20 14:29 MB [id number]) Out-Patient Physical Therapy Visit Information Visit Information Visit Type Progress Note Visit Note Uniform Medical Visit Start Time 13:48 Visit Stop Time 14:28 Total Visit Minutes 40 Visit Number / Evaluation Information Evaluation Date 11/10/19 PT-OP-B Current Condition Start: 11/10/19 12:59 Freq: Status: Active Protocol: Document 11/10/19 17:38 AMH (Rec: 11/10/19 18:01 AMH [id number]) Current Condition History of Current Condition Onset Date CVA in 2013. Falls x3 & hospitalization 06/22/19, and August 2019 Current Complaints dec activitiy tolerance, poor balance, dec amb speed History of Current Condition Pt is a 63 y.o. 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 Pt has been seen at [facility] for PT, OT, ST over the past few years. He was recently hospitalized ( 06/22/19) for 3 falls in the same day. And then again in August 2019. The patient had very low sodium levels at the time One fall occured in the shower and 2 occured getting out of bed. Since recent hospitalization, daughter reports she has seen a decline in his function in dec cognitive processing. Pt has dec stamina with walking, is more unstable on his feet, has been shuffling more and appears to have less coordination. Daughter carlos he fell on 06/22/19 was due to pain in his LLE (from RA). Pt reports no sensation on RLE. He has a hx of Rhemuatoid Arthritis, blood clots, depression, diabetes mellitus I, falls, depression, heart attack, pacemaker, neuropathy, and R elbow surgery. Pt amb w a large base quad cane and DF assist AFO. Pt has had multiple falls prior to most recent hospitalization that normally occur with transitional movements like getting out of bed or into a car, prabhu when he is tired. There is an incline and gravel on their driveway which his daughter believes may be contributing to the falls with car transfers. Pt has required 24/7 caregiving since his CVA in 2013, which is provided by his daughter during the daytime and his at nighttime. Prior Treatments and Tests PT, OT, ST. Has seen improvements with PT, but discontinued d/t plateauing of function. Future Testing and Treatments Planned OT and speech at [facility] Treatment Goals Patient/Caregiver Goals To improve walking endurance, balance and to decrease fall risk. Prior Functional Status Baseline Function- ADL's Needs Assist Baseline Function- Mobility Needs Assist Baseline Function- Gait LBQC, AFO Baseline Function- Work/School NA Baseline Function- Recreation/Hobbies Able to ride in car with his daughter to drop of grandchildren at school. Able to amb short distances in the community w/LBQC. Able to use motorized carts at larger stores PT-OP-C Subjective Start: 11/10/19 12:59 Freq: Status: Active Protocol: Document 04/18/20 13:48 MB (Rec: 04/18/20 14:29 MB [id number]) OP-PT Subjective Patient Comments Patient Comments Pt's DIL, Clara, provides history. Pt has not had falls since COVID closure. He is having worse of a day d/t getting Enbrel shot and he might have pain though he cannot report it. Pt is non- verbal. He cannot state goals. Clara states that goals are for him to move around better and for longer/better endurance. PT-OP-D Balance Start: 11/10/19 18:02 Freq: Status: Active Protocol: Document 01/04/20 13:45 DCW (Rec: 01/04/20 14:12 DCW [id number]) OP-PT Balance Assessment Standing Balance Static Standing Balance Ability Fair Dynamic Standing Balance Ability Fair Device Used large based quad cane Standing Balance Comments Fair standing balance with LBQC near by Tinetti Balance Assessment Sitting Balance Sitting Balance Steady, safe Arising from Chair Ability to Arise Able, uses arms to help Attempts to Arise Able, requires >1 attempt Standing Balance Immediate Standing Balance Steady w/o support Standing Balance Steady, wide stance Nudged Response Steady Standing with Eyes Closed Steady Turning Step Pattern Turning 360 Degrees Discontinuous steps Stability Turning 360 Degrees Unsteady, grabs/staggers Sitting Down Sitting Down Safe, steady Gait and Step Initiation of Gait No hesitancy Right Foot Step Length Does pass stance foot Right Foot Step Height Completely clears floor Left Foot Step Length Does not pass stance foot Left Foot Step Height Completely clears floor Step Description Step Symmetry Step length not equal Step Continuity Stopping or discontinuity Gait Description Path Description Mild/moderate deviation Trunk Description Marked sway or uses aide Walking Stance Heels together Scoring and Interpretation Tinetti Composite Score (points) 17 Interpretation of Scores High risk for falls(< 19) Tinetti Impairment Rating from Composite 20 to <40% Impaired (Score 17- Score 22) Estrella Fall Scale Copyright Permission PT-OP-E Functional Tests Start: 11/10/19 18:02 Freq: Status: Active Protocol: Document 01/04/20 13:45 DCW (Rec: 01/04/20 14:12 DCW [id number]) Functional Tests 6 Minute Walk Test Distance 328 Device Used large base quad cane Comments 0.91 ft/sec PT-OP-G Mobility & Gait Start: 11/10/19 18:02 Freq: Status: Active Protocol: Document 11/10/19 18:02 AMH (Rec: 11/10/19 18:05 AMH [email or web address]) OP Mobility Evaluation Bed Mobility Rolling able to roll in bed ind Supine to and from Sit able to transfer supine to and from sit ind Transfers Sit to Stand Heavy use of LUE to push up from chair. Pt had some instability with rising from chair. OP Gait Assessment Gait Gait Assistance Required: Standby Assistance Assistive Devices Assistive Device Large Based Quad Cane Orthotic/Prosthetic Devices or Brace: Yes Gait Deviations General Gait Pattern Antalgic,Decreased Stride Length,Decreased Feet Clearance,Narrow Based Gait Factors Limiting Gait Function Factors Limiting Gait Function Decreased Activity Tolerance, Decreased Strength,Poor Balance,Poor Safety Awareness PT-OP-M Strength Start: 11/10/19 18:02 Freq: Status: Active Protocol: Document 01/04/20 13:45 DCW (Rec: 01/04/20 14:12 DCW [id number]) Hip Strength Hip Manual Muscle Testing Right Flexion (L2) 2+ Poor+ Extension (S1) 2 Poor Abduction 2 Poor Adduction 2 Poor External Rotation 2+ Poor+ Internal Rotation 3 Fair Left Flexion (L2) 3+ Fair+ Extension (S1) 3+ Fair+ Abduction 3+ Fair+ Adduction 3+ Fair+ External Rotation 3+ Fair+ Internal Rotation 3+ Fair+ Knee Strength Knee Manual Muscle Testing Right Flexion (S2) 2 Poor Extension (L3) 2+ Poor+ Left Reason Not Measured WFL PT-OP-Q Treatments Start: 11/10/19 18:02 Freq: Status: Active Protocol: Document 04/18/20 13:48 MB (Rec: 04/18/20 14:42 MB [id number]) Gait Training Gait Activity Tinetti Comments Performed again today for reassessment and score written under goals. Much trouble with 360 deg turning and unable to present with step- through gait 6MWT Device Used QC Level of Assistance CGA Surface Flat, even, though change from carpet to anna Distance/Duration 218 Treatment Focus Gait speed Comments Pt presents with IR of left leg and toes that makes gait slower as he tries to walk straight and without course deviation. PT asks pt to stop walking if he hurts and he does stop twice. When PT asks where (legs, arms, all over), he nods yes to all over. Other gait trials to chair, to gym, back to waiting area and out to side walk. All with similar, slow gait pattern, step-to gait, CGA Neuro Re-Education Treatment Balance Activities Sit to stands Comments 1 rep with left UE support, 3 reps without UE support in 30 sec Other Activities Tinetti standing balance exercises Comments See score under goals today. Pt stands with staggered gait with standing balance exercises: right foot in front and left behind. Is unconfident when not using cane and tends to reach for it Self-Care/Home Management Treatment Education Other Education Education to pt, pt and DIL and pt and in plan for future treatments with primary therapist, pt's response to therapy today and goals PT-OP-T Assessment and Plan Start: 11/10/19 18:02 Freq: Status: Active Protocol: Document 04/18/20 13:48 MB (Rec: 04/18/20 14:29 MB [id number]) Physical Therapy Assessment Impairments Impairments Activity Tolerance,Balance, Coordination,Functional Activities,Functional Mobility ,Gait,Pain,Posture,ROM, Sensation,Soft Tissue Mobility ,Strength,Tone,Transfers Goals 4 Skilled Nursing Goal (LTG) Pt will be able to perform 10 reps sit to stand with left UE support if needed in 30 sec to improve transition from sit to gait and decrease fall risk by 06/17/2020. 04/18/2020: Pt performs 4 reps sit to stand--1 with left hand support and 3 without UE support in 30 sec. LTG Duration 06/17/2020 Tinnetti Impairment high fall risk Short Term Goal (STG) Pt will improve his ability to turn and step up with gait patterns to decrease fall risk . STG Duration 02/15/20 - improving Cardiac Monitor Technician Goal (LTG) Pt will increase Tinnetti score to at least 24/28 in order to decrease fall risk to low. 04/18/2020: Tinetti score is 13 /28. LTG Duration 06/17/2020 6MWT Impairment Pt amb 328 feet during 6MWT Cardiac Monitor Technician Goal (LTG) A walking speed of <1.97 can indicate an increased risk of further functional decline. Pt to ambulate >400' during 6 MWT in order to decrease his risk. 04/18/2020: Pt gait trains 218 feet in 6 minutes with QC LTG Duration 06/17/2020 Gait Impairment gait deviations Short Term Goal (STG) Pt will be able to amb for 20 ft with minimal in-toeing of LLE in order to reduce risk of falls. STG Duration 02/15/20 - Improving Skilled Nursing Goal (LTG) Pt will be able to amb for 50 ft without leaning onto LBQC for heavy support in order to reduce fall risk. 04/18/2020: Pt with minimal leaning into QC with gait, but has step-to gait d/t paraplegia and so he does lean into it to clear right foot. LTG Duration 06/17/2020 Progress Towards Goals Progress Towards Goals Progressing Toward Goals,Slow Progress due to Medical Issues Assessment Summary Assessment Pt presents with worsening of gait distance and Tinetti scores since last seen in January 2020. His DIL states that today is a hard today because he just got his RA shot and it has likely not kicked in yet. Pt will benefit from ongoing PT to improve balance, gait and strengthening. Barriers include aphasia and no verbalizations, unable to determine if pt is hurting. Physical Therapy Plan Frequency and Duration Frequency of Treatment 2x/Week Duration of Treatment 8 weeks Plan of Care Start Date 04/18/20 Plan of Care End Date 06/17/20 Therapeutic Interventions Therapeutic Interventions Balance Training,Gait Training ,Home Exercise Program, Neuromuscular Re-education, Orthotic/Prosthetic Management ,Patient/Caregiver Education, Self-Care/Home Management, Therapeutic Exercises Next Visit Focus/Plan Next Note Type Treatment Note Next Visit Plan Progress gait and other exercises to improve balance and strength
--- NOTE | 2020-04-18 14:47 | PT.OPPOC ---
Physical, Occupational & Speech Therapy At [facility] 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 (04/18/20) Weakness (04/18/20) Visit Care Team Role Provider Type Delfino Epstein MD Attending Provider Physician Primary Care Provider Specialty: [facility] Address: [address] [place] [address], [address] Email: [email or web address] Plan Of Care PT-OP-T Assessment and Plan Start: 11/10/19 18:02 Freq: Status: Active Protocol: Document 04/18/20 13:48 MB (Rec: 04/18/20 14:29 MB [id number]) Physical Therapy Assessment Impairments Impairments Activity Tolerance,Balance, Coordination,Functional Activities,Functional Mobility ,Gait,Pain,Posture,ROM, Sensation,Soft Tissue Mobility ,Strength,Tone,Transfers Goals 4 Flight Superintendent Goal (LTG) Pt will be able to perform 10 reps sit to stand with left UE support if needed in 30 sec to improve transition from sit to gait and decrease fall risk by 06/17/2020. 04/18/2020: Pt performs 4 reps sit to stand--1 with left hand support and 3 without UE support in 30 sec. LTG Duration 06/17/2020 Tinnetti Impairment high fall risk Short Term Goal (STG) Pt will improve his ability to turn and step up with gait patterns to decrease fall risk . STG Duration 02/15/20 - improving Flight Superintendent Goal (LTG) Pt will increase Tinnetti score to at least 24/28 in order to decrease fall risk to low. 04/18/2020: Tinetti score is 13 /28. LTG Duration 06/17/2020 6MWT Impairment Pt amb 328 feet during 6MWT Flight Superintendent Goal (LTG) A walking speed of <1.97 can indicate an increased risk of further functional decline. Pt to ambulate >400' during 6 MWT in order to decrease his risk. 04/18/2020: Pt gait trains 218 feet in 6 minutes with QC LTG Duration 06/17/2020 Gait Impairment gait deviations Short Term Goal (STG) Pt will be able to amb for 20 ft with minimal in-toeing of LLE in order to reduce risk of falls. STG Duration 02/15/20 - Improving Flight Superintendent Goal (LTG) Pt will be able to amb for 50 ft without leaning onto LBQC for heavy support in order to reduce fall risk. 04/18/2020: Pt with minimal leaning into QC with gait, but has step-to gait d/t paraplegia and so he does lean into it to clear right foot. LTG Duration 06/17/2020 Progress Towards Goals Progress Towards Goals Progressing Toward Goals,Slow Progress due to Medical Issues Assessment Summary Assessment Pt presents with worsening of gait distance and Tinetti scores since last seen in January 2020. His DIL states that today is a hard today because he just got his RA shot and it has likely not kicked in yet. Pt will benefit from ongoing PT to improve balance, gait and strengthening. Barriers include aphasia and no verbalizations, unable to determine if pt is hurting. Physical Therapy Plan Frequency and Duration Frequency of Treatment 2x/Week Duration of Treatment 8 weeks Plan of Care Start Date 04/18/20 Plan of Care End Date 06/17/20 Therapeutic Interventions Therapeutic Interventions Balance Training,Gait Training ,Home Exercise Program, Neuromuscular Re-education, Orthotic/Prosthetic Management ,Patient/Caregiver Education, Self-Care/Home Management, Therapeutic Exercises Next Visit Focus/Plan Next Note Type Treatment Note Next Visit Plan Progress gait and other exercises to improve balance and strength Plan of Care Dates Plan of Care Start Date 04/18/20 Plan of Care End Date 06/17/20 Electronically Signed by: Julia Fish PT 04/18/20 0079 Please Sign and Return: I have reviewed this Plan of Care and certify that the skilled therapy services above are required to meet the patient?s needs. Physician Signature Date Printed Name and Credentials Clinical Instructor Signature Printed Name and Credentials
--- NOTE | 2020-04-26 16:50 | PT.OTN ---
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 (04/26/20) Weakness (04/26/20) Physical Therapy Treatment Note PT-OP-A Visit Information Start: 11/10/19 12:59 Freq: Status: Active Protocol: Document 04/26/20 16:00 DCW (Rec: 04/26/20 16:50 DCW [id number]) Out-Patient Physical Therapy Visit Information Visit Information Visit Type Treatment Note Visit Start Time 16:00 Visit Stop Time 16:45 Total Visit Minutes 45 Visit Number 2/6 Number of HEALTH UNIT COORDINATOR Visits 0 Evaluation Information Evaluation Date 11/10/19 PT-OP-B Current Condition Start: 11/10/19 12:59 Freq: Status: Active Protocol: Document 11/10/19 17:38 AMH (Rec: 11/10/19 18:01 AMH [email or web address]) Current Condition History of Current Condition Onset Date CVA in 2013. Falls x3 & hospitalization 06/22/19, and August 2019 Current Complaints dec activitiy tolerance, poor balance, dec amb speed History of Current Condition Pt is a 63 y.o. 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 Pt has been seen at [facility] for PT, OT, ST over the past few years. He was recently hospitalized ( 06/22/19) for 3 falls in the same day. And then again in August 2019. The patient had very low sodium levels at the time One fall occured in the shower and 2 occured getting out of bed. Since recent hospitalization, daughter reports she has seen a decline in his function in dec cognitive processing. Pt has dec stamina with walking, is more unstable on his feet, has been shuffling more and appears to have less coordination. Daughter belives he fell on 06/22/19 was due to pain in his LLE (from RA). Pt reports no sensation on RLE. He has a hx of Rhemuatoid Arthritis, blood clots, depression, diabetes mellitus I, falls, depression, heart attack, pacemaker, neuropathy, and R elbow surgery. Pt amb w a large base quad cane and DF assist AFO. Pt has had multiple falls prior to most recent hospitalization that normally occur with transitional movements like getting out of bed or into a car, prabhu when he is tired. There is an incline and gravel on their driveway which his daughter believes may be contributing to the falls with car transfers. Pt has required 24/7 caregiving since his CVA in 2013, which is provided by his daughter during the daytime and his at nighttime. Prior Treatments and Tests PT, OT, ST. Has seen improvements with PT, but discontinued d/t plateauing of function. Future Testing and Treatments Planned OT and speech at [facility] Treatment Goals Patient/Caregiver Goals To improve walking endurance, balance and to decrease fall risk. Prior Functional Status Baseline Function- ADL's Needs Assist Baseline Function- Mobility Needs Assist Baseline Function- Gait LBQC, AFO Baseline Function- Work/School NA Baseline Function- Recreation/Hobbies Able to ride in car with his daughter to drop of grandchildren at school. Able to amb short distances in the community w/LBQC. Able to use motorized carts at larger stores PT-OP-C Subjective Start: 11/10/19 12:59 Freq: Status: Active Protocol: Document 04/26/20 16:00 DCW (Rec: 04/26/20 16:50 DCW [id number]) OP-PT Subjective Patient Comments Patient Comments Pt indicates that he is doing well today. PT-OP-D Balance Start: 11/10/19 18:02 Freq: Status: Active Protocol: Document 01/04/20 13:45 DCW (Rec: 01/04/20 14:12 DCW [id number]) OP-PT Balance Assessment Standing Balance Static Standing Balance Ability Fair Dynamic Standing Balance Ability Fair Device Used large based quad cane Standing Balance Comments Fair standing balance with LBQC near by Tinetti Balance Assessment Sitting Balance Sitting Balance Steady, safe Arising from Chair Ability to Arise Able, uses arms to help Attempts to Arise Able, requires >1 attempt Standing Balance Immediate Standing Balance Steady w/o support Standing Balance Steady, wide stance Nudged Response Steady Standing with Eyes Closed Steady Turning Step Pattern Turning 360 Degrees Discontinuous steps Stability Turning 360 Degrees Unsteady, grabs/staggers Sitting Down Sitting Down Safe, steady Gait and Step Initiation of Gait No hesitancy Right Foot Step Length Does pass stance foot Right Foot Step Height Completely clears floor Left Foot Step Length Does not pass stance foot Left Foot Step Height Completely clears floor Step Description Step Symmetry Step length not equal Step Continuity Stopping or discontinuity Gait Description Path Description Mild/moderate deviation Trunk Description Marked sway or uses aide Walking Stance Heels together Scoring and Interpretation Tinetti Composite Score (points) 17 Interpretation of Scores High risk for falls(< 19) Tinetti Impairment Rating from Composite 20 to <40% Impaired (Score 17- Score 22) Estrella Fall Scale Copyright Permission PT-OP-E Functional Tests Start: 11/10/19 18:02 Freq: Status: Active Protocol: Document 01/04/20 13:45 DCW (Rec: 01/04/20 14:12 DCW [id number]) Functional Tests 6 Minute Walk Test Distance 328 Device Used large base quad cane Comments 0.91 ft/sec PT-OP-G Mobility & Gait Start: 11/10/19 18:02 Freq: Status: Active Protocol: Document 11/10/19 18:02 AMH (Rec: 11/10/19 18:05 AMH [email or web address]) OP Mobility Evaluation Bed Mobility Rolling able to roll in bed ind Supine to and from Sit able to transfer supine to and from sit ind Transfers Sit to Stand Heavy use of LUE to push up from chair. Pt had some instability with rising from chair. OP Gait Assessment Gait Gait Assistance Required: Standby Assistance Assistive Devices Assistive Device Large Based Quad Cane Orthotic/Prosthetic Devices or Brace: Yes Gait Deviations General Gait Pattern Antalgic,Decreased Stride Length,Decreased Feet Clearance,Narrow Based Gait Factors Limiting Gait Function Factors Limiting Gait Function Decreased Activity Tolerance, Decreased Strength,Poor Balance,Poor Safety Awareness PT-OP-M Strength Start: 11/10/19 18:02 Freq: Status: Active Protocol: Document 01/04/20 13:45 DCW (Rec: 01/04/20 14:12 DCW [id number]) Hip Strength Hip Manual Muscle Testing Right Flexion (L2) 2+ Poor+ Extension (S1) 2 Poor Abduction 2 Poor Adduction 2 Poor External Rotation 2+ Poor+ Internal Rotation 3 Fair Left Flexion (L2) 3+ Fair+ Extension (S1) 3+ Fair+ Abduction 3+ Fair+ Adduction 3+ Fair+ External Rotation 3+ Fair+ Internal Rotation 3+ Fair+ Knee Strength Knee Manual Muscle Testing Right Flexion (S2) 2 Poor Extension (L3) 2+ Poor+ Left Reason Not Measured WFL PT-OP-Q Treatments Start: 11/10/19 18:02 Freq: Status: Active Protocol: Document 06/23/20 16:00 DCW (Rec: 04/26/20 16:50 DCW [id number]) Cardio Equipment Recumbent Elliptical (Biodex) Duration (Minutes) 6 Resistance 4 Seat Position 9 Gym Equipment Shuttle Recovery Unilateral Squats Details Unilateral Squats Resistance 37# Shuttle Recovery Platform Stable Reps/Time x15 Bilateral Squats Details Bilateral Squats Resistance 62# Shuttle Recovery Platform Stable Reps/Time x20 Therapeutic Exercises Other Exercises hurdles Other Exercise Name Hurdles Resistance 4# Comments Fwd, Lateral Neuro Re-Education Treatment Balance Activities SLS Details SLS Surface firm Cones Details Ball/cone transfers during ambulation PT-OP-T Assessment and Plan Start: 11/10/19 18:02 Freq: Status: Active Protocol: Document 04/26/20 16:00 DCW (Rec: 04/26/20 16:50 DCW [id number]) Physical Therapy Assessment Impairments Impairments Activity Tolerance,Balance, Coordination,Functional Activities,Functional Mobility ,Gait,Pain,Posture,ROM, Sensation,Soft Tissue Mobility ,Strength,Tone,Transfers Goals 4 Alf Goal (LTG) Pt will be able to perform 10 reps sit to stand with left UE support if needed in 30 sec to improve transition from sit to gait and decrease fall risk by 06/17/2020. 04/18/2020: Pt performs 4 reps sit to stand--1 with left hand support and 3 without UE support in 30 sec. LTG Duration 06/17/2020 Tinnetti Impairment high fall risk Short Term Goal (STG) Pt will improve his ability to turn and step up with gait patterns to decrease fall risk . STG Duration 02/15/20 - improving Alf Goal (LTG) Pt will increase Tinnetti score to at least 24/28 in order to decrease fall risk to low. 04/18/2020: Tinetti score is 13 /28. LTG Duration 06/17/2020 6MWT Impairment Pt amb 328 feet during 6MWT Trimming Department Blocker Goal (LTG) A walking speed of <1.97 can indicate an increased risk of further functional decline. Pt to ambulate >400' during 6 MWT in order to decrease his risk. 04/18/2020: Pt gait trains 218 feet in 6 minutes with QC LTG Duration 06/17/2020 Gait Impairment gait deviations Short Term Goal (STG) Pt will be able to amb for 20 ft with minimal in-toeing of LLE in order to reduce risk of falls. STG Duration 02/15/20 - Improving Alf Goal (LTG) Pt will be able to amb for 50 ft without leaning onto LBQC for heavy support in order to reduce fall risk. 04/18/2020: Pt with minimal leaning into QC with gait, but has step-to gait d/t paraplegia and so he does lean into it to clear right foot. LTG Duration 06/17/2020 Progress Towards Goals Progress Towards Goals Progressing Toward Goals,Slow Progress due to Medical Issues Assessment Summary Assessment Pt did well during today's session, however at the end, he began to get a sudden spasm through his right LE, which relieved with sitting but began again upon standing. Pt able to walk out to waiting room, noted he has not been drinking much water recently. PT instructed to increase water intake. Physical Therapy Plan Frequency and Duration Frequency of Treatment 2x/Week Duration of Treatment 8 weeks Plan of Care Start Date 04/18/20 Plan of Care End Date 06/17/20 Therapeutic Interventions Therapeutic Interventions Balance Training,Gait Training ,Home Exercise Program, Neuromuscular Re-education, Orthotic/Prosthetic Management ,Patient/Caregiver Education, Self-Care/Home Management, Therapeutic Exercises Next Visit Focus/Plan Next Note Type Treatment Note Next Visit Plan Progress gait and other exercises to improve balance and strength
--- NOTE | 2020-04-28 14:31 | PT.OTN ---
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 (04/28/20) Weakness (04/28/20) Physical Therapy Treatment Note PT-OP-A Visit Information Start: 11/10/19 12:59 Freq: Status: Active Protocol: Document 04/28/20 13:50 DCW (Rec: 04/28/20 14:31 DCW [id number]) Out-Patient Physical Therapy Visit Information Visit Information Visit Type Treatment Note Visit Start Time 13:50 Visit Stop Time 14:30 Total Visit Minutes 40 Visit Number 3/6 Number of NETWORK SUPPORT ENGINEER Visits 0 Evaluation Information Evaluation Date 11/10/19 PT-OP-B Current Condition Start: 11/10/19 12:59 Freq: Status: Active Protocol: Document 11/10/19 17:38 AMH (Rec: 11/10/19 18:01 AMH [id number]) Current Condition History of Current Condition Onset Date CVA in 2013. Falls x3 & hospitalization 06/22/19, and August 2019 Current Complaints dec activitiy tolerance, poor balance, dec amb speed History of Current Condition Pt is a 63 y.o. 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 Pt has been seen at [facility] for PT, OT, ST over the past few years. He was recently hospitalized ( 06/22/19) for 3 falls in the same day. And then again in August 2019. The patient had very low sodium levels at the time One fall occured in the shower and 2 occured getting out of bed. Since recent hospitalization, daughter reports she has seen a decline in his function in dec cognitive processing. Pt has dec stamina with walking, is more unstable on his feet, has been shuffling more and appears to have less coordination. Daughter belives he fell on 06/22/19 was due to pain in his LLE (from RA). Pt reports no sensation on RLE. He has a hx of Rhemuatoid Arthritis, blood clots, depression, diabetes mellitus I, falls, depression, heart attack, pacemaker, neuropathy, and R elbow surgery. Pt amb w a large base quad cane and DF assist AFO. Pt has had multiple falls prior to most recent hospitalization that normally occur with transitional movements like getting out of bed or into a car, prabhu when he is tired. There is an incline and gravel on their driveway which his daughter believes may be contributing to the falls with car transfers. Pt has required 24/7 caregiving since his CVA in 2013, which is provided by his daughter during the daytime and his at nighttime. Prior Treatments and Tests PT, OT, ST. Has seen improvements with PT, but discontinued d/t plateauing of function. Future Testing and Treatments Planned OT and speech at [facility] Treatment Goals Patient/Caregiver Goals To improve walking endurance, balance and to decrease fall risk. Prior Functional Status Baseline Function- ADL's Needs Assist Baseline Function- Mobility Needs Assist Baseline Function- Gait LBQC, AFO Baseline Function- Work/School NA Baseline Function- Recreation/Hobbies Able to ride in car with his daughter to drop of grandchildren at school. Able to amb short distances in the community w/LBQC. Able to use motorized carts at larger stores PT-OP-C Subjective Start: 11/10/19 12:59 Freq: Status: Active Protocol: Document 04/28/20 13:50 DCW (Rec: 04/28/20 14:31 DCW [id number]) OP-PT Subjective Patient Comments Patient Comments Pt indicates that he is doing well today. PT-OP-D Balance Start: 11/10/19 18:02 Freq: Status: Active Protocol: Document 01/04/20 13:45 DCW (Rec: 01/04/20 14:12 DCW [id number]) OP-PT Balance Assessment Standing Balance Static Standing Balance Ability Fair Dynamic Standing Balance Ability Fair Device Used large based quad cane Standing Balance Comments Fair standing balance with LBQC near by Tinetti Balance Assessment Sitting Balance Sitting Balance Steady, safe Arising from Chair Ability to Arise Able, uses arms to help Attempts to Arise Able, requires >1 attempt Standing Balance Immediate Standing Balance Steady w/o support Standing Balance Steady, wide stance Nudged Response Steady Standing with Eyes Closed Steady Turning Step Pattern Turning 360 Degrees Discontinuous steps Stability Turning 360 Degrees Unsteady, grabs/staggers Sitting Down Sitting Down Safe, steady Gait and Step Initiation of Gait No hesitancy Right Foot Step Length Does pass stance foot Right Foot Step Height Completely clears floor Left Foot Step Length Does not pass stance foot Left Foot Step Height Completely clears floor Step Description Step Symmetry Step length not equal Step Continuity Stopping or discontinuity Gait Description Path Description Mild/moderate deviation Trunk Description Marked sway or uses aide Walking Stance Heels together Scoring and Interpretation Tinetti Composite Score (points) 17 Interpretation of Scores High risk for falls(< 19) Tinetti Impairment Rating from Composite 20 to <40% Impaired (Score 17- Score 22) Estrella Fall Scale Copyright Permission PT-OP-E Functional Tests Start: 11/10/19 18:02 Freq: Status: Active Protocol: Document 01/04/20 13:45 DCW (Rec: 01/04/20 14:12 DCW [id number]) Functional Tests 6 Minute Walk Test Distance 328 Device Used large base quad cane Comments 0.91 ft/sec PT-OP-G Mobility & Gait Start: 11/10/19 18:02 Freq: Status: Active Protocol: Document 11/10/19 18:02 AMH (Rec: 11/10/19 18:05 AMH [email or web address]) OP Mobility Evaluation Bed Mobility Rolling able to roll in bed ind Supine to and from Sit able to transfer supine to and from sit ind Transfers Sit to Stand Heavy use of LUE to push up from chair. Pt had some instability with rising from chair. OP Gait Assessment Gait Gait Assistance Required: Standby Assistance Assistive Devices Assistive Device Large Based Quad Cane Orthotic/Prosthetic Devices or Brace: Yes Gait Deviations General Gait Pattern Antalgic,Decreased Stride Length,Decreased Feet Clearance,Narrow Based Gait Factors Limiting Gait Function Factors Limiting Gait Function Decreased Activity Tolerance, Decreased Strength,Poor Balance,Poor Safety Awareness PT-OP-M Strength Start: 11/10/19 18:02 Freq: Status: Active Protocol: Document 01/04/20 13:45 DCW (Rec: 01/04/20 14:12 DCW [id number]) Hip Strength Hip Manual Muscle Testing Right Flexion (L2) 2+ Poor+ Extension (S1) 2 Poor Abduction 2 Poor Adduction 2 Poor External Rotation 2+ Poor+ Internal Rotation 3 Fair Left Flexion (L2) 3+ Fair+ Extension (S1) 3+ Fair+ Abduction 3+ Fair+ Adduction 3+ Fair+ External Rotation 3+ Fair+ Internal Rotation 3+ Fair+ Knee Strength Knee Manual Muscle Testing Right Flexion (S2) 2 Poor Extension (L3) 2+ Poor+ Left Reason Not Measured WFL PT-OP-Q Treatments Start: 11/10/19 18:02 Freq: Status: Active Protocol: Document 06/25/20 13:50 DCW (Rec: 04/28/20 14:31 DCW [id number]) Cardio Equipment Recumbent Bicycle Duration (Minutes) 5 Resistance 4 Seat Position 9 Gym Equipment Shuttle Balance blue clips Details Blue Comments Wide NATE (EO/EC) Staggered (vs perturbations) Therapeutic Exercises Sitting Exercises HS Curl Sitting Exercise Name HS curl Side right Resistance Lv 3 Equipment Used T-band Standing Exercises 1 Standing Exercise Name Toe-taps Side bilateral Resistance 4# Equipment Used 6 step Other Exercises hurdles Other Exercise Name Hurdles Resistance 4# Comments Fwd, Lateral PT-OP-T Assessment and Plan Start: 11/10/19 18:02 Freq: Status: Active Protocol: Document 04/28/20 13:50 DCW (Rec: 04/28/20 14:31 DCW [id number]) Physical Therapy Assessment Impairments Impairments Activity Tolerance,Balance, Coordination,Functional Activities,Functional Mobility ,Gait,Pain,Posture,ROM, Sensation,Soft Tissue Mobility ,Strength,Tone,Transfers Goals 4 Penitentiary Goal (LTG) Pt will be able to perform 10 reps sit to stand with left UE support if needed in 30 sec to improve transition from sit to gait and decrease fall risk by 06/17/2020. 04/18/2020: Pt performs 4 reps sit to stand--1 with left hand support and 3 without UE support in 30 sec. LTG Duration 06/17/2020 Tinnetti Impairment high fall risk Short Term Goal (STG) Pt will improve his ability to turn and step up with gait patterns to decrease fall risk . STG Duration 02/15/20 - improving Pad Machine Offbearer Goal (LTG) Pt will increase Tinnetti score to at least 24/28 in order to decrease fall risk to low. 04/18/2020: Tinetti score is 13 /28. LTG Duration 06/17/2020 6MWT Impairment Pt amb 328 feet during 6MWT Pad Machine Offbearer Goal (LTG) A walking speed of <1.97 can indicate an increased risk of further functional decline. Pt to ambulate >400' during 6 MWT in order to decrease his risk. 04/18/2020: Pt gait trains 218 feet in 6 minutes with QC LTG Duration 06/17/2020 Gait Impairment gait deviations Short Term Goal (STG) Pt will be able to amb for 20 ft with minimal in-toeing of LLE in order to reduce risk of falls. STG Duration 02/15/20 - Improving Pad Machine Offbearer Goal (LTG) Pt will be able to amb for 50 ft without leaning onto LBQC for heavy support in order to reduce fall risk. 04/18/2020: Pt with minimal leaning into QC with gait, but has step-to gait d/t paraplegia and so he does lean into it to clear right foot. LTG Duration 06/17/2020 Progress Towards Goals Progress Towards Goals Progressing Toward Goals,Slow Progress due to Medical Issues Assessment Summary Assessment Pt did better today, no instances of muscle spasm limiting activity participation. Pt still fatigues, required repeated rest breaks. Physical Therapy Plan Frequency and Duration Frequency of Treatment 2x/Week Duration of Treatment 8 weeks Plan of Care Start Date 04/18/20 Plan of Care End Date 06/17/20 Therapeutic Interventions Therapeutic Interventions Balance Training,Gait Training ,Home Exercise Program, Neuromuscular Re-education, Orthotic/Prosthetic Management ,Patient/Caregiver Education, Self-Care/Home Management, Therapeutic Exercises Next Visit Focus/Plan Next Note Type Treatment Note Next Visit Plan Progress gait and other exercises to improve balance and strength
--- NOTE | 2020-05-04 12:23 | PT.OTN ---
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 (05/04/20) Weakness (05/04/20) Physical Therapy Treatment Note PT-OP-A Visit Information Start: 11/10/19 12:59 Freq: Status: Active Protocol: Document 05/04/20 11:35 DCW (Rec: 05/04/20 12:23 DCW [id number]) Out-Patient Physical Therapy Visit Information Visit Information Visit Type Treatment Note Visit Start Time 11:35 Visit Stop Time 12:20 Total Visit Minutes 45 Visit Number 4/6 Number of SYSTEM CONFIGURATION SPECIALIST Visits 0 Evaluation Information Evaluation Date 11/10/19 PT-OP-B Current Condition Start: 11/10/19 12:59 Freq: Status: Active Protocol: Document 11/10/19 17:38 AMH (Rec: 11/10/19 18:01 AMH [id number]) Current Condition History of Current Condition Onset Date CVA in 2013. Falls x3 & hospitalization 06/22/19, and August 2019 Current Complaints dec activitiy tolerance, poor balance, dec amb speed History of Current Condition Pt is a 63 y.o. 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 Pt has been seen at [facility] OP for PT, OT, ST over the past few years. He was recently hospitalized ( 06/22/19) for 3 falls in the same day. And then again in August 2019. The patient had very low sodium levels at the time One fall occured in the shower and 2 occured getting out of bed. Since recent hospitalization, daughter reports she has seen a decline in his function in dec cognitive processing. Pt has dec stamina with walking, is more unstable on his feet, has been shuffling more and appears to have less coordination. Daughter belives he fell on 06/22/19 was due to pain in his LLE (from RA). Pt reports no sensation on RLE. He has a hx of Rhemuatoid Arthritis, blood clots, depression, diabetes mellitus I, falls, depression, heart attack, pacemaker, neuropathy, and R elbow surgery. Pt amb w a large base quad cane and DF assist AFO. Pt has had multiple falls prior to most recent hospitalization that normally occur with transitional movements like getting out of bed or into a car, prabhu when he is tired. There is an incline and gravel on their driveway which his daughter believes may be contributing to the falls with car transfers. Pt has required 24/7 caregiving since his CVA in 2013, which is provided by his daughter during the daytime and his at nighttime. Prior Treatments and Tests PT, OT, ST. Has seen improvements with PT, but discontinued d/t plateauing of function. Future Testing and Treatments Planned OT and speech at [facility] Treatment Goals Patient/Caregiver Goals To improve walking endurance, balance and to decrease fall risk. Prior Functional Status Baseline Function- ADL's Needs Assist Baseline Function- Mobility Needs Assist Baseline Function- Gait LBQC, AFO Baseline Function- Work/School NA Baseline Function- Recreation/Hobbies Able to ride in car with his daughter to drop of grandchildren at school. Able to amb short distances in the community w/LBQC. Able to use motorized carts at larger stores PT-OP-C Subjective Start: 11/10/19 12:59 Freq: Status: Active Protocol: Document 05/04/20 11:35 DCW (Rec: 05/04/20 12:23 DCW [id number]) OP-PT Subjective Patient Comments Patient Comments Pt's reports he seems to be doing very well today PT-OP-D Balance Start: 11/10/19 18:02 Freq: Status: Active Protocol: Document 01/04/20 13:45 DCW (Rec: 01/04/20 14:12 DCW [id number]) OP-PT Balance Assessment Standing Balance Static Standing Balance Ability Fair Dynamic Standing Balance Ability Fair Device Used large based quad cane Standing Balance Comments Fair standing balance with LBQC near by Tinetti Balance Assessment Sitting Balance Sitting Balance Steady, safe Arising from Chair Ability to Arise Able, uses arms to help Attempts to Arise Able, requires >1 attempt Standing Balance Immediate Standing Balance Steady w/o support Standing Balance Steady, wide stance Nudged Response Steady Standing with Eyes Closed Steady Turning Step Pattern Turning 360 Degrees Discontinuous steps Stability Turning 360 Degrees Unsteady, grabs/staggers Sitting Down Sitting Down Safe, steady Gait and Step Initiation of Gait No hesitancy Right Foot Step Length Does pass stance foot Right Foot Step Height Completely clears floor Left Foot Step Length Does not pass stance foot Left Foot Step Height Completely clears floor Step Description Step Symmetry Step length not equal Step Continuity Stopping or discontinuity Gait Description Path Description Mild/moderate deviation Trunk Description Marked sway or uses aide Walking Stance Heels together Scoring and Interpretation Tinetti Composite Score (points) 17 Interpretation of Scores High risk for falls(< 19) Tinetti Impairment Rating from Composite 20 to <40% Impaired (Score 17- Score 22) Estrella Fall Scale Copyright Permission PT-OP-E Functional Tests Start: 11/10/19 18:02 Freq: Status: Active Protocol: Document 01/04/20 13:45 DCW (Rec: 01/04/20 14:12 DCW [id number]) Functional Tests 6 Minute Walk Test Distance 328 Device Used large base quad cane Comments 0.91 ft/sec PT-OP-G Mobility & Gait Start: 11/10/19 18:02 Freq: Status: Active Protocol: Document 11/10/19 18:02 AMH (Rec: 11/10/19 18:05 AMH [email or web address]) OP Mobility Evaluation Bed Mobility Rolling able to roll in bed ind Supine to and from Sit able to transfer supine to and from sit ind Transfers Sit to Stand Heavy use of LUE to push up from chair. Pt had some instability with rising from chair. OP Gait Assessment Gait Gait Assistance Required: Standby Assistance Assistive Devices Assistive Device Large Based Quad Cane Orthotic/Prosthetic Devices or Brace: Yes Gait Deviations General Gait Pattern Antalgic,Decreased Stride Length,Decreased Feet Clearance,Narrow Based Gait Factors Limiting Gait Function Factors Limiting Gait Function Decreased Activity Tolerance, Decreased Strength,Poor Balance,Poor Safety Awareness PT-OP-M Strength Start: 11/10/19 18:02 Freq: Status: Active Protocol: Document 01/04/20 13:45 DCW (Rec: 01/04/20 14:12 DCW [id number]) Hip Strength Hip Manual Muscle Testing Right Flexion (L2) 2+ Poor+ Extension (S1) 2 Poor Abduction 2 Poor Adduction 2 Poor External Rotation 2+ Poor+ Internal Rotation 3 Fair Left Flexion (L2) 3+ Fair+ Extension (S1) 3+ Fair+ Abduction 3+ Fair+ Adduction 3+ Fair+ External Rotation 3+ Fair+ Internal Rotation 3+ Fair+ Knee Strength Knee Manual Muscle Testing Right Flexion (S2) 2 Poor Extension (L3) 2+ Poor+ Left Reason Not Measured WFL PT-OP-Q Treatments Start: 11/10/19 18:02 Freq: Status: Active Protocol: Document 05/04/20 11:35 DCW (Rec: 05/04/20 12:23 DCW [id number]) Cardio Equipment Recumbent Elliptical (Biodex) Duration (Minutes) 5 Resistance 4 Seat Position 9 Gym Equipment Shuttle Recovery Unilateral Squats Details Unilateral Squats Resistance 37# Shuttle Recovery Platform Stable Reps/Time x15 Bilateral Squats Details Bilateral Squats Resistance 62# Shuttle Recovery Platform Stable Reps/Time x20 Shuttle Balance blue clips Details Blue Comments Wide NATE (EO/EC) Staggered (vs perturbations) Therapeutic Exercises Sitting Exercises HS Curl Sitting Exercise Name HS curl Side right Resistance Lv 3 Equipment Used T-band Standing Exercises 1 Standing Exercise Name Toe-taps Side bilateral Resistance 4# Equipment Used 6 step Comments Fwd, Lateral Other Exercises hurdles Other Exercise Name Hurdles Resistance 4# Comments Fwd, Lateral Neuro Re-Education Treatment Balance Activities Cones Details Ball/cone transfers in // bars PT-OP-T Assessment and Plan Start: 11/10/19 18:02 Freq: Status: Active Protocol: Document 05/04/20 11:35 [facility] (Rec: 05/04/20 12:23 [facility] [id number]) Physical Therapy Assessment Impairments Impairments Activity Tolerance,Balance, Coordination,Functional Activities,Functional Mobility ,Gait,Pain,Posture,ROM, Sensation,Soft Tissue Mobility ,Strength,Tone,Transfers Goals 4 Freight Dispatcher Goal (LTG) Pt will be able to perform 10 reps sit to stand with left UE support if needed in 30 sec to improve transition from sit to gait and decrease fall risk by 06/17/2020. 04/18/2020: Pt performs 4 reps sit to stand--1 with left hand support and 3 without UE support in 30 sec. LTG Duration 06/17/2020 Tinnetti Impairment high fall risk Short Term Goal (STG) Pt will improve his ability to turn and step up with gait patterns to decrease fall risk . STG Duration 02/15/20 - improving Skilled Nursing Goal (LTG) Pt will increase Tinnetti score to at least 24/28 in order to decrease fall risk to low. 04/18/2020: Tinetti score is 13 /28. LTG Duration 06/17/2020 6MWT Impairment Pt amb 328 feet during 6MWT Skilled Nursing Goal (LTG) A walking speed of <1.97 can indicate an increased risk of further functional decline. Pt to ambulate >400' during 6 MWT in order to decrease his risk. 04/18/2020: Pt gait trains 218 feet in 6 minutes with QC LTG Duration 06/17/2020 Gait Impairment gait deviations Short Term Goal (STG) Pt will be able to amb for 20 ft with minimal in-toeing of LLE in order to reduce risk of falls. STG Duration 02/15/20 - Improving Freight Dispatcher Goal (LTG) Pt will be able to amb for 50 ft without leaning onto LBQC for heavy support in order to reduce fall risk. 04/18/2020: Pt with minimal leaning into QC with gait, but has step-to gait d/t paraplegia and so he does lean into it to clear right foot. LTG Duration 06/17/2020 Progress Towards Goals Progress Towards Goals Progressing Toward Goals,Slow Progress due to Medical Issues Assessment Summary Assessment Pt did well today, tolerated all activities with no requests for rest breaks, although did occasionally decide to suddenly be done with certain activities. Physical Therapy Plan Frequency and Duration Frequency of Treatment 2x/Week Duration of Treatment 8 weeks Plan of Care Start Date 04/18/20 Plan of Care End Date 06/17/20 Therapeutic Interventions Therapeutic Interventions Balance Training,Gait Training ,Home Exercise Program, Neuromuscular Re-education, Orthotic/Prosthetic Management ,Patient/Caregiver Education, Self-Care/Home Management, Therapeutic Exercises Next Visit Focus/Plan Next Note Type Treatment Note Next Visit Plan Progress gait and other exercises to improve balance and strength
--- NOTE | 2020-05-09 15:15 | PT.OTN ---
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 (05/09/20) Weakness (05/09/20) Physical Therapy Treatment Note PT-OP-A Visit Information Start: 11/10/19 12:59 Freq: Status: Active Protocol: Document 05/09/20 14:30 DCW (Rec: 05/09/20 15:15 DCW [id number]) Out-Patient Physical Therapy Visit Information Visit Information Visit Type Treatment Note Visit Start Time 14:30 Visit Stop Time 15:15 Total Visit Minutes 45 Visit Number 5/[address] REPORTER Visits 0 Evaluation Information Evaluation Date 11/10/19 PT-OP-B Current Condition Start: 11/10/19 12:59 Freq: Status: Active Protocol: Document 11/10/19 17:38 AMH (Rec: 11/10/19 18:01 AMH [id number]) Current Condition History of Current Condition Onset Date CVA in 2013. Falls x3 & hospitalization 06/22/19, and August 2019 Current Complaints dec activitiy tolerance, poor balance, dec amb speed History of Current Condition Pt is a 63 y.o. 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 Pt has been seen at [facility] OP for PT, OT, ST over the past few years. He was recently hospitalized ( 06/22/19) for 3 falls in the same day. And then again in August 2019. The patient had very low sodium levels at the time One fall occured in the shower and 2 occured getting out of bed. Since recent hospitalization, daughter reports she has seen a decline in his function in dec cognitive processing. Pt has dec stamina with walking, is more unstable on his feet, has been shuffling more and appears to have less coordination. Daughter belives he fell on 06/22/19 was due to pain in his LLE (from RA). Pt reports no sensation on RLE. He has a hx of Rhemuatoid Arthritis, blood clots, depression, diabetes mellitus I, falls, depression, heart attack, pacemaker, neuropathy, and R elbow surgery. Pt amb w a large base quad cane and DF assist AFO. Pt has had multiple falls prior to most recent hospitalization that normally occur with transitional movements like getting out of bed or into a car, prabhu when he is tired. There is an incline and gravel on their driveway which his daughter believes may be contributing to the falls with car transfers. Pt has required 24/7 caregiving since his CVA in 2013, which is provided by his daughter during the daytime and his at nighttime. Prior Treatments and Tests PT, OT, ST. Has seen improvements with PT, but discontinued d/t plateauing of function. Future Testing and Treatments Planned OT and speech at [facility] Treatment Goals Patient/Caregiver Goals To improve walking endurance, balance and to decrease fall risk. Prior Functional Status Baseline Function- ADL's Needs Assist Baseline Function- Mobility Needs Assist Baseline Function- Gait LBQC, AFO Baseline Function- Work/School NA Baseline Function- Recreation/Hobbies Able to ride in car with his daughter to drop of grandchildren at school. Able to amb short distances in the community w/LBQC. Able to use motorized carts at larger stores PT-OP-C Subjective Start: 11/10/19 12:59 Freq: Status: Active Protocol: Document 05/09/20 14:30 DCW (Rec: 05/09/20 15:15 DCW [id number]) OP-PT Subjective Patient Comments Patient Comments Pt indicates that he does not have any new complaints today. PT-OP-D Balance Start: 11/10/19 18:02 Freq: Status: Active Protocol: Document 01/04/20 13:45 DCW (Rec: 01/04/20 14:12 DCW [id number]) OP-PT Balance Assessment Standing Balance Static Standing Balance Ability Fair Dynamic Standing Balance Ability Fair Device Used large based quad cane Standing Balance Comments Fair standing balance with LBQC near by Tinetti Balance Assessment Sitting Balance Sitting Balance Steady, safe Arising from Chair Ability to Arise Able, uses arms to help Attempts to Arise Able, requires >1 attempt Standing Balance Immediate Standing Balance Steady w/o support Standing Balance Steady, wide stance Nudged Response Steady Standing with Eyes Closed Steady Turning Step Pattern Turning 360 Degrees Discontinuous steps Stability Turning 360 Degrees Unsteady, grabs/staggers Sitting Down Sitting Down Safe, steady Gait and Step Initiation of Gait No hesitancy Right Foot Step Length Does pass stance foot Right Foot Step Height Completely clears floor Left Foot Step Length Does not pass stance foot Left Foot Step Height Completely clears floor Step Description Step Symmetry Step length not equal Step Continuity Stopping or discontinuity Gait Description Path Description Mild/moderate deviation Trunk Description Marked sway or uses aide Walking Stance Heels together Scoring and Interpretation Tinetti Composite Score (points) 17 Interpretation of Scores High risk for falls(< 19) Tinetti Impairment Rating from Composite 20 to <40% Impaired (Score 17- Score 22) Estrella Fall Scale Copyright Permission PT-OP-E Functional Tests Start: 11/10/19 18:02 Freq: Status: Active Protocol: Document 01/04/20 13:45 DCW (Rec: 01/04/20 14:12 DCW [id number]) Functional Tests 6 Minute Walk Test Distance 328 Device Used large base quad cane Comments 0.91 ft/sec PT-OP-G Mobility & Gait Start: 11/10/19 18:02 Freq: Status: Active Protocol: Document 11/10/19 18:02 AMH (Rec: 11/10/19 18:05 AMH [email or web address]) OP Mobility Evaluation Bed Mobility Rolling able to roll in bed ind Supine to and from Sit able to transfer supine to and from sit ind Transfers Sit to Stand Heavy use of LUE to push up from chair. Pt had some instability with rising from chair. OP Gait Assessment Gait Gait Assistance Required: Standby Assistance Assistive Devices Assistive Device Large Based Quad Cane Orthotic/Prosthetic Devices or Brace: Yes Gait Deviations General Gait Pattern Antalgic,Decreased Stride Length,Decreased Feet Clearance,Narrow Based Gait Factors Limiting Gait Function Factors Limiting Gait Function Decreased Activity Tolerance, Decreased Strength,Poor Balance,Poor Safety Awareness PT-OP-M Strength Start: 11/10/19 18:02 Freq: Status: Active Protocol: Document 01/04/20 13:45 DCW (Rec: 01/04/20 14:12 DCW [id number]) Hip Strength Hip Manual Muscle Testing Right Flexion (L2) 2+ Poor+ Extension (S1) 2 Poor Abduction 2 Poor Adduction 2 Poor External Rotation 2+ Poor+ Internal Rotation 3 Fair Left Flexion (L2) 3+ Fair+ Extension (S1) 3+ Fair+ Abduction 3+ Fair+ Adduction 3+ Fair+ External Rotation 3+ Fair+ Internal Rotation 3+ Fair+ Knee Strength Knee Manual Muscle Testing Right Flexion (S2) 2 Poor Extension (L3) 2+ Poor+ Left Reason Not Measured WFL PT-OP-Q Treatments Start: 11/10/19 18:02 Freq: Status: Active Protocol: Document 05/09/20 14:30 DCW (Rec: 05/09/20 15:15 DCW [id number]) Cardio Equipment Recumbent Elliptical (Biodex) Duration (Minutes) 5 Resistance 4 Seat Position 9 Gym Equipment Shuttle Recovery Unilateral Squats Details Unilateral Squats Resistance 37# Shuttle Recovery Platform Stable Reps/Time x15 Bilateral Squats Details Bilateral Squats Resistance 62# Shuttle Recovery Platform Stable Reps/Time x20 Shuttle Balance red clips Details Red Comments Wide NATE, Staggered Therapeutic Exercises Standing Exercises 3 Standing Exercise Name HS curls 2 Standing Exercise Name Resisted side-stepping Resistance Yellow Equipment Used T-band 1 Standing Exercise Name Toe-taps Side bilateral Resistance 4# Equipment Used 6 step Comments Fwd, Lateral PT-OP-T Assessment and Plan Start: 11/10/19 18:02 Freq: Status: Active Protocol: Document 05/09/20 14:30 DCW (Rec: 05/09/20 15:15 DCW [id number]) Physical Therapy Assessment Impairments Impairments Activity Tolerance,Balance, Coordination,Functional Activities,Functional Mobility ,Gait,Pain,Posture,ROM, Sensation,Soft Tissue Mobility ,Strength,Tone,Transfers Goals 4 Environmental Planning Engineer Goal (LTG) Pt will be able to perform 10 reps sit to stand with left UE support if needed in 30 sec to improve transition from sit to gait and decrease fall risk by 06/17/2020. 04/18/2020: Pt performs 4 reps sit to stand--1 with left hand support and 3 without UE support in 30 sec. LTG Duration 06/17/2020 Tinnetti Impairment high fall risk Short Term Goal (STG) Pt will improve his ability to turn and step up with gait patterns to decrease fall risk . STG Duration 02/15/20 - improving Environmental Planning Engineer Goal (LTG) Pt will increase Tinnetti score to at least 24/28 in order to decrease fall risk to low. 04/18/2020: Tinetti score is 13 /28. LTG Duration 06/17/2020 6MWT Impairment Pt amb 328 feet during 6MWT Environmental Planning Engineer Goal (LTG) A walking speed of <1.97 can indicate an increased risk of further functional decline. Pt to ambulate >400' during 6 MWT in order to decrease his risk. 04/18/2020: Pt gait trains 218 feet in 6 minutes with QC LTG Duration 06/17/2020 Gait Impairment gait deviations Short Term Goal (STG) Pt will be able to amb for 20 ft with minimal in-toeing of LLE in order to reduce risk of falls. STG Duration 02/15/20 - Improving Mcc Goal (LTG) Pt will be able to amb for 50 ft without leaning onto LBQC for heavy support in order to reduce fall risk. 04/18/2020: Pt with minimal leaning into QC with gait, but has step-to gait d/t paraplegia and so he does lean into it to clear right foot. LTG Duration 06/17/2020 Progress Towards Goals Progress Towards Goals Progressing Toward Goals,Slow Progress due to Medical Issues Assessment Summary Assessment Pt required more rest breaks today, stopping activity to sit down with no warning. Pt did better with increased difficulty on Shuttle Balance and tolerated increased resistance with ankle weights. Physical Therapy Plan Frequency and Duration Frequency of Treatment 2x/Week Duration of Treatment 8 weeks Plan of Care Start Date 04/18/20 Plan of Care End Date 06/17/20 Therapeutic Interventions Therapeutic Interventions Balance Training,Gait Training ,Home Exercise Program, Neuromuscular Re-education, Orthotic/Prosthetic Management ,Patient/Caregiver Education, Self-Care/Home Management, Therapeutic Exercises Next Visit Focus/Plan Next Note Type Treatment Note Next Visit Plan Progress gait and other exercises to improve balance and strength
--- NOTE | 2020-05-11 15:15 | PT.OTN ---
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 (05/11/20) Weakness (05/11/20) Physical Therapy Treatment Note PT-OP-A Visit Information Start: 11/10/19 12:59 Freq: Status: Active Protocol: Document 05/11/20 14:30 DCW (Rec: 05/11/20 15:15 DCW [id number]) Out-Patient Physical Therapy Visit Information Visit Information Visit Type Treatment Note Visit Start Time 14:30 Visit Stop Time 15:15 Total Visit Minutes 45 Visit Number 6/6 Number of ACADEMIC ADVISER Visits 0 Evaluation Information Evaluation Date 11/10/19 PT-OP-B Current Condition Start: 11/10/19 12:59 Freq: Status: Active Protocol: Document 11/10/19 17:38 AMH (Rec: 11/10/19 18:01 AMH [id number]) Current Condition History of Current Condition Onset Date CVA in 2013. Falls x3 & hospitalization 06/22/19, and August 2019 Current Complaints dec activitiy tolerance, poor balance, dec amb speed History of Current Condition Pt is a 63 y.o. 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 Pt has been seen at [facility] for PT, OT, ST over the past few years. He was recently hospitalized ( 06/22/19) for 3 falls in the same day. And then again in August 2019. The patient had very low sodium levels at the time One fall occured in the shower and 2 occured getting out of bed. Since recent hospitalization, daughter reports she has seen a decline in his function in dec cognitive processing. Pt has dec stamina with walking, is more unstable on his feet, has been shuffling more and appears to have less coordination. Daughter belives he fell on 06/22/19 was due to pain in his LLE (from RA). Pt reports no sensation on RLE. He has a hx of Rhemuatoid Arthritis, blood clots, depression, diabetes mellitus I, falls, depression, heart attack, pacemaker, neuropathy, and R elbow surgery. Pt amb w a large base quad cane and DF assist AFO. Pt has had multiple falls prior to most recent hospitalization that normally occur with transitional movements like getting out of bed or into a car, prabhu when he is tired. There is an incline and gravel on their driveway which his daughter believes may be contributing to the falls with car transfers. Pt has required 24/7 caregiving since his CVA in 2013, which is provided by his daughter during the daytime and his at nighttime. Prior Treatments and Tests PT, OT, ST. Has seen improvements with PT, but discontinued d/t plateauing of function. Future Testing and Treatments Planned OT and speech at [facility] Treatment Goals Patient/Caregiver Goals To improve walking endurance, balance and to decrease fall risk. Prior Functional Status Baseline Function- ADL's Needs Assist Baseline Function- Mobility Needs Assist Baseline Function- Gait LBQC, AFO Baseline Function- Work/School NA Baseline Function- Recreation/Hobbies Able to ride in car with his daughter to drop of grandchildren at school. Able to amb short distances in the community w/LBQC. Able to use motorized carts at larger stores PT-OP-C Subjective Start: 11/10/19 12:59 Freq: Status: Active Protocol: Document 05/11/20 14:30 DCW (Rec: 05/11/20 15:15 DCW [id number]) OP-PT Subjective Patient Comments Patient Comments Pt indicates that he is doing well today. PT-OP-D Balance Start: 11/10/19 18:02 Freq: Status: Active Protocol: Document 01/04/20 13:45 DCW (Rec: 01/04/20 14:12 DCW [id number]) OP-PT Balance Assessment Standing Balance Static Standing Balance Ability Fair Dynamic Standing Balance Ability Fair Device Used large based quad cane Standing Balance Comments Fair standing balance with LBQC near by Tinetti Balance Assessment Sitting Balance Sitting Balance Steady, safe Arising from Chair Ability to Arise Able, uses arms to help Attempts to Arise Able, requires >1 attempt Standing Balance Immediate Standing Balance Steady w/o support Standing Balance Steady, wide stance Nudged Response Steady Standing with Eyes Closed Steady Turning Step Pattern Turning 360 Degrees Discontinuous steps Stability Turning 360 Degrees Unsteady, grabs/staggers Sitting Down Sitting Down Safe, steady Gait and Step Initiation of Gait No hesitancy Right Foot Step Length Does pass stance foot Right Foot Step Height Completely clears floor Left Foot Step Length Does not pass stance foot Left Foot Step Height Completely clears floor Step Description Step Symmetry Step length not equal Step Continuity Stopping or discontinuity Gait Description Path Description Mild/moderate deviation Trunk Description Marked sway or uses aide Walking Stance Heels together Scoring and Interpretation Tinetti Composite Score (points) 17 Interpretation of Scores High risk for falls(< 19) Tinetti Impairment Rating from Composite 20 to <40% Impaired (Score 17- Score 22) Estrella Fall Scale Copyright Permission PT-OP-E Functional Tests Start: 11/10/19 18:02 Freq: Status: Active Protocol: Document 01/04/20 13:45 DCW (Rec: 01/04/20 14:12 DCW [id number]) Functional Tests 6 Minute Walk Test Distance 328 Device Used large base quad cane Comments 0.91 ft/sec PT-OP-G Mobility & Gait Start: 11/10/19 18:02 Freq: Status: Active Protocol: Document 11/10/19 18:02 AMH (Rec: 11/10/19 18:05 AMH [email or web address]) OP Mobility Evaluation Bed Mobility Rolling able to roll in bed ind Supine to and from Sit able to transfer supine to and from sit ind Transfers Sit to Stand Heavy use of LUE to push up from chair. Pt had some instability with rising from chair. OP Gait Assessment Gait Gait Assistance Required: Standby Assistance Assistive Devices Assistive Device Large Based Quad Cane Orthotic/Prosthetic Devices or Brace: Yes Gait Deviations General Gait Pattern Antalgic,Decreased Stride Length,Decreased Feet Clearance,Narrow Based Gait Factors Limiting Gait Function Factors Limiting Gait Function Decreased Activity Tolerance, Decreased Strength,Poor Balance,Poor Safety Awareness PT-OP-M Strength Start: 11/10/19 18:02 Freq: Status: Active Protocol: Document 01/04/20 13:45 DCW (Rec: 01/04/20 14:12 DCW [id number]) Hip Strength Hip Manual Muscle Testing Right Flexion (L2) 2+ Poor+ Extension (S1) 2 Poor Abduction 2 Poor Adduction 2 Poor External Rotation 2+ Poor+ Internal Rotation 3 Fair Left Flexion (L2) 3+ Fair+ Extension (S1) 3+ Fair+ Abduction 3+ Fair+ Adduction 3+ Fair+ External Rotation 3+ Fair+ Internal Rotation 3+ Fair+ Knee Strength Knee Manual Muscle Testing Right Flexion (S2) 2 Poor Extension (L3) 2+ Poor+ Left Reason Not Measured WFL PT-OP-Q Treatments Start: 11/10/19 18:02 Freq: Status: Active Protocol: Document 07/08/20 14:30 DCW (Rec: 05/11/20 15:15 DCW [id number]) Gym Equipment Shuttle Recovery Unilateral Squats Details Unilateral Squats Resistance 37# Shuttle Recovery Platform Stable Reps/Time x15 Bilateral Squats Details Bilateral Squats Resistance 62# Shuttle Recovery Platform Stable Reps/Time x20 Shuttle Balance red clips Details Red Comments Wide NATE, Staggered Therapeutic Exercises Other Exercises hurdles Other Exercise Name Hurdles Resistance 4# Comments Fwd, Lateral PT-OP-T Assessment and Plan Start: 11/10/19 18:02 Freq: Status: Active Protocol: Document 05/11/20 14:30 DCW (Rec: 05/11/20 15:15 DCW [id number]) Physical Therapy Assessment Impairments Impairments Activity Tolerance,Balance, Coordination,Functional Activities,Functional Mobility ,Gait,Pain,Posture,ROM, Sensation,Soft Tissue Mobility ,Strength,Tone,Transfers Goals 4 Custodial Goal (LTG) Pt will be able to perform 10 reps sit to stand with left UE support if needed in 30 sec to improve transition from sit to gait and decrease fall risk by 06/17/2020. 04/18/2020: Pt performs 4 reps sit to stand--1 with left hand support and 3 without UE support in 30 sec. LTG Duration 06/17/2020 Tinnetti Impairment high fall risk Short Term Goal (STG) Pt will improve his ability to turn and step up with gait patterns to decrease fall risk . STG Duration 02/15/20 - improving [place] Goal (LTG) Pt will increase Tinnetti score to at least 24/28 in order to decrease fall risk to low. 04/18/2020: Tinetti score is 13 /28. LTG Duration 06/17/2020 6MWT Impairment Pt amb 328 feet during 6MWT [place] Goal (LTG) A walking speed of <1.97 can indicate an increased risk of further functional decline. Pt to ambulate >400' during 6 MWT in order to decrease his risk. 04/18/2020: Pt gait trains 218 feet in 6 minutes with QC LTG Duration 06/17/2020 Gait Impairment gait deviations Short Term Goal (STG) Pt will be able to amb for 20 ft with minimal in-toeing of LLE in order to reduce risk of falls. STG Duration 02/15/20 - Improving Custodial Goal (LTG) Pt will be able to amb for 50 ft without leaning onto LBQC for heavy support in order to reduce fall risk. 04/18/2020: Pt with minimal leaning into QC with gait, but has step-to gait d/t paraplegia and so he does lean into it to clear right foot. LTG Duration 06/17/2020 Progress Towards Goals Progress Towards Goals Progressing Toward Goals,Slow Progress due to Medical Issues Assessment Summary Assessment Pt doing very well recently performing on Shuttle Balance, continue to work on improving activity tolerance. Physical Therapy Plan Frequency and Duration Frequency of Treatment 2x/Week Duration of Treatment 8 weeks Plan of Care Start Date 04/18/20 Plan of Care End Date 06/17/20 Therapeutic Interventions Therapeutic Interventions Balance Training,Gait Training ,Home Exercise Program, Neuromuscular Re-education, Orthotic/Prosthetic Management ,Patient/Caregiver Education, Self-Care/Home Management, Therapeutic Exercises Next Visit Focus/Plan Next Note Type Treatment Note Next Visit Plan Progress gait and other exercises to improve balance and strength
--- NOTE | 2020-05-18 15:18 | PT.OTN ---
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 (05/18/20) Weakness (05/18/20) Physical Therapy Treatment Note PT-OP-A Visit Information Start: 11/10/19 12:59 Freq: Status: Active Protocol: Document 05/18/20 14:30 DCW (Rec: 05/18/20 15:18 DCW [id number]) Out-Patient Physical Therapy Visit Information Visit Information Visit Type Treatment Note Visit Start Time 14:30 Visit Stop Time 15:15 Total Visit Minutes 45 Visit Number 1/6 Number of CONSTRUCTION SUPERINTENDENT Visits 0 Evaluation Information Evaluation Date 11/10/19 PT-OP-B Current Condition Start: 11/10/19 12:59 Freq: Status: Active Protocol: Document 11/10/19 17:38 AMH (Rec: 11/10/19 18:01 AMH [id number]) Current Condition History of Current Condition Onset Date CVA in 2013. Falls x3 & hospitalization 06/22/19, and August 2019 Current Complaints dec activitiy tolerance, poor balance, dec amb speed History of Current Condition Pt is a 63 y.o. 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 Pt has been seen at [facility] OP for PT, OT, ST over the past few years. He was recently hospitalized ( 06/22/19) for 3 falls in the same day. And then again in August 2019. The patient had very low sodium levels at the time One fall occured in the shower and 2 occured getting out of bed. Since recent hospitalization, daughter reports she has seen a decline in his function in dec cognitive processing. Pt has dec stamina with walking, is more unstable on his feet, has been shuffling more and appears to have less coordination. Daughter belives he fell on 06/22/19 was due to pain in his LLE (from RA). Pt reports no sensation on RLE. He has a hx of Rhemuatoid Arthritis, blood clots, depression, diabetes mellitus I, falls, depression, heart attack, pacemaker, neuropathy, and R elbow surgery. Pt amb w a large base quad cane and DF assist AFO. Pt has had multiple falls prior to most recent hospitalization that normally occur with transitional movements like getting out of bed or into a car, prabhu when he is tired. There is an incline and gravel on their driveway which his daughter believes may be contributing to the falls with car transfers. Pt has required 24/7 caregiving since his CVA in 2013, which is provided by his daughter during the daytime and his at nighttime. Prior Treatments and Tests PT, OT, ST. Has seen improvements with PT, but discontinued d/t plateauing of function. Future Testing and Treatments Planned OT and speech at [facility] Treatment Goals Patient/Caregiver Goals To improve walking endurance, balance and to decrease fall risk. Prior Functional Status Baseline Function- ADL's Needs Assist Baseline Function- Mobility Needs Assist Baseline Function- Gait LBQC, AFO Baseline Function- Work/School NA Baseline Function- Recreation/Hobbies Able to ride in car with his daughter to drop of grandchildren at school. Able to amb short distances in the community w/LBQC. Able to use motorized carts at larger stores PT-OP-C Subjective Start: 11/10/19 12:59 Freq: Status: Active Protocol: Document 05/18/20 14:30 DCW (Rec: 05/18/20 15:18 DCW [id number]) OP-PT Subjective Patient Comments Patient Comments Pt indicates that he is doing well today. PT-OP-D Balance Start: 11/10/19 18:02 Freq: Status: Active Protocol: Document 01/04/20 13:45 DCW (Rec: 01/04/20 14:12 DCW [id number]) OP-PT Balance Assessment Standing Balance Static Standing Balance Ability Fair Dynamic Standing Balance Ability Fair Device Used large based quad cane Standing Balance Comments Fair standing balance with LBQC near by Tinetti Balance Assessment Sitting Balance Sitting Balance Steady, safe Arising from Chair Ability to Arise Able, uses arms to help Attempts to Arise Able, requires >1 attempt Standing Balance Immediate Standing Balance Steady w/o support Standing Balance Steady, wide stance Nudged Response Steady Standing with Eyes Closed Steady Turning Step Pattern Turning 360 Degrees Discontinuous steps Stability Turning 360 Degrees Unsteady, grabs/staggers Sitting Down Sitting Down Safe, steady Gait and Step Initiation of Gait No hesitancy Right Foot Step Length Does pass stance foot Right Foot Step Height Completely clears floor Left Foot Step Length Does not pass stance foot Left Foot Step Height Completely clears floor Step Description Step Symmetry Step length not equal Step Continuity Stopping or discontinuity Gait Description Path Description Mild/moderate deviation Trunk Description Marked sway or uses aide Walking Stance Heels together Scoring and Interpretation Tinetti Composite Score (points) 17 Interpretation of Scores High risk for falls(< 19) Tinetti Impairment Rating from Composite 20 to <40% Impaired (Score 17- Score 22) Estrella Fall Scale Copyright Permission PT-OP-E Functional Tests Start: 11/10/19 18:02 Freq: Status: Active Protocol: Document 01/04/20 13:45 DCW (Rec: 01/04/20 14:12 DCW [id number]) Functional Tests 6 Minute Walk Test Distance 328 Device Used large base quad cane Comments 0.91 ft/sec PT-OP-G Mobility & Gait Start: 11/10/19 18:02 Freq: Status: Active Protocol: Document 11/10/19 18:02 AMH (Rec: 11/10/19 18:05 AMH [email or web address]) OP Mobility Evaluation Bed Mobility Rolling able to roll in bed ind Supine to and from Sit able to transfer supine to and from sit ind Transfers Sit to Stand Heavy use of LUE to push up from chair. Pt had some instability with rising from chair. OP Gait Assessment Gait Gait Assistance Required: Standby Assistance Assistive Devices Assistive Device Large Based Quad Cane Orthotic/Prosthetic Devices or Brace: Yes Gait Deviations General Gait Pattern Antalgic,Decreased Stride Length,Decreased Feet Clearance,Narrow Based Gait Factors Limiting Gait Function Factors Limiting Gait Function Decreased Activity Tolerance, Decreased Strength,Poor Balance,Poor Safety Awareness PT-OP-M Strength Start: 11/10/19 18:02 Freq: Status: Active Protocol: Document 01/04/20 13:45 DCW (Rec: 01/04/20 14:12 DCW [id number]) Hip Strength Hip Manual Muscle Testing Right Flexion (L2) 2+ Poor+ Extension (S1) 2 Poor Abduction 2 Poor Adduction 2 Poor External Rotation 2+ Poor+ Internal Rotation 3 Fair Left Flexion (L2) 3+ Fair+ Extension (S1) 3+ Fair+ Abduction 3+ Fair+ Adduction 3+ Fair+ External Rotation 3+ Fair+ Internal Rotation 3+ Fair+ Knee Strength Knee Manual Muscle Testing Right Flexion (S2) 2 Poor Extension (L3) 2+ Poor+ Left Reason Not Measured WFL PT-OP-Q Treatments Start: 11/10/19 18:02 Freq: Status: Active Protocol: Document 07/15/20 14:30 DCW (Rec: 05/18/20 15:18 DCW [id number]) Cardio Equipment Recumbent Elliptical (Biodex) Duration (Minutes) 5 Resistance 4 Seat Position 9 Gym Equipment Shuttle Recovery Unilateral Squats Details Unilateral Squats Resistance 37# Shuttle Recovery Platform Stable Reps/Time x15 Bilateral Squats Details Bilateral Squats Resistance 62# Shuttle Recovery Platform Stable Reps/Time x20 Shuttle Balance red clips Details Red Comments Wide NATE, Staggered Therapeutic Exercises Standing Exercises 2 Standing Exercise Name Resisted side-stepping Resistance Yellow Equipment Used T-band 1 Standing Exercise Name Toe-taps Side bilateral Resistance 4# Equipment Used 6 step Comments Fwd, Lateral PT-OP-T Assessment and Plan Start: 11/10/19 18:02 Freq: Status: Active Protocol: Document 05/18/20 14:30 DCW (Rec: 05/18/20 15:18 DCW [id number]) Physical Therapy Assessment Impairments Impairments Activity Tolerance,Balance, Coordination,Functional Activities,Functional Mobility ,Gait,Pain,Posture,ROM, Sensation,Soft Tissue Mobility ,Strength,Tone,Transfers Goals 4 Payroll Technician Goal (LTG) Pt will be able to perform 10 reps sit to stand with left UE support if needed in 30 sec to improve transition from sit to gait and decrease fall risk by 06/17/2020. 04/18/2020: Pt performs 4 reps sit to stand--1 with left hand support and 3 without UE support in 30 sec. LTG Duration 06/17/2020 Tinnetti Impairment high fall risk Short Term Goal (STG) Pt will improve his ability to turn and step up with gait patterns to decrease fall risk . STG Duration 02/15/20 - improving Correction Goal (LTG) Pt will increase Tinnetti score to at least 24/28 in order to decrease fall risk to low. 04/18/2020: Tinetti score is 13 /28. LTG Duration 06/17/2020 6MWT Impairment Pt amb 328 feet during 6MWT Payroll Technician Goal (LTG) A walking speed of <1.97 can indicate an increased risk of further functional decline. Pt to ambulate >400' during 6 MWT in order to decrease his risk. 04/18/2020: Pt gait trains 218 feet in 6 minutes with QC LTG Duration 06/17/2020 Gait Impairment gait deviations Short Term Goal (STG) Pt will be able to amb for 20 ft with minimal in-toeing of LLE in order to reduce risk of falls. STG Duration 02/15/20 - Improving Payroll Technician Goal (LTG) Pt will be able to amb for 50 ft without leaning onto LBQC for heavy support in order to reduce fall risk. 04/18/2020: Pt with minimal leaning into QC with gait, but has step-to gait d/t paraplegia and so he does lean into it to clear right foot. LTG Duration 06/17/2020 Progress Towards Goals Progress Towards Goals Progressing Toward Goals,Slow Progress due to Medical Issues Assessment Summary Assessment Pt had some increased spasm in his right leg today, limiting some of the stepping/single leg activities. Able to eliminate spasm with rest. Physical Therapy Plan Frequency and Duration Frequency of Treatment 2x/Week Duration of Treatment 8 weeks Plan of Care Start Date 04/18/20 Plan of Care End Date 06/17/20 Therapeutic Interventions Therapeutic Interventions Balance Training,Gait Training ,Home Exercise Program, Neuromuscular Re-education, Orthotic/Prosthetic Management ,Patient/Caregiver Education, Self-Care/Home Management, Therapeutic Exercises Next Visit Focus/Plan Next Note Type Treatment Note Next Visit Plan Progress gait and other exercises to improve balance and strength
--- NOTE | 2020-05-23 12:44 | PT.OTN ---
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 (05/23/20) Weakness (05/23/20) Physical Therapy Treatment Note PT-OP-A Visit Information Start: 11/10/19 12:59 Freq: Status: Active Protocol: Document 05/23/20 12:05 DCW (Rec: 05/23/20 12:44 DCW [id number]) Out-Patient Physical Therapy Visit Information Visit Information Visit Type Treatment Note Visit Note Late start d/t pt using restroom Visit Start Time 12:05 Visit Stop Time 12:45 Total Visit Minutes 40 Visit Number 2/6 Number of PACKAGE WINDER Visits 0 Evaluation Information Evaluation Date 11/10/19 PT-OP-B Current Condition Start: 11/10/19 12:59 Freq: Status: Active Protocol: Document 11/10/19 17:38 AMH (Rec: 11/10/19 18:01 AMH [email or web address]) Current Condition History of Current Condition Onset Date CVA in 2013. Falls x3 & hospitalization 06/22/19, and August 2019 Current Complaints dec activitiy tolerance, poor balance, dec amb speed History of Current Condition Pt is a 63 y.o. 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 Pt has been seen at [facility] OP for PT, OT, ST over the past few years. He was recently hospitalized ( 06/22/19) for 3 falls in the same day. And then again in August 2019. The patient had very low sodium levels at the time One fall occured in the shower and 2 occured getting out of bed. Since recent hospitalization, daughter reports she has seen a decline in his function in dec cognitive processing. Pt has dec stamina with walking, is more unstable on his feet, has been shuffling more and appears to have less coordination. Daughter saraives he fell on 06/22/19 was due to pain in his LLE (from RA). Pt reports no sensation on RLE. He has a hx of Rhemuatoid Arthritis, blood clots, depression, diabetes mellitus I, falls, depression, heart attack, pacemaker, neuropathy, and R elbow surgery. Pt amb w a large base quad cane and DF assist AFO. Pt has had multiple falls prior to most recent hospitalization that normally occur with transitional movements like getting out of bed or into a car, prabhu when he is tired. There is an incline and gravel on their driveway which his daughter believes may be contributing to the falls with car transfers. Pt has required 24/7 caregiving since his CVA in 2013, which is provided by his daughter during the daytime and his at nighttime. Prior Treatments and Tests PT, OT, ST. Has seen improvements with PT, but discontinued d/t plateauing of function. Future Testing and Treatments Planned OT and speech at [facility] Treatment Goals Patient/Caregiver Goals To improve walking endurance, balance and to decrease fall risk. Prior Functional Status Baseline Function- ADL's Needs Assist Baseline Function- Mobility Needs Assist Baseline Function- Gait LBQC, AFO Baseline Function- Work/School NA Baseline Function- Recreation/Hobbies Able to ride in car with his daughter to drop of grandchildren at school. Able to amb short distances in the community w/LBQC. Able to use motorized carts at larger stores PT-OP-C Subjective Start: 11/10/19 12:59 Freq: Status: Active Protocol: Document 05/23/20 12:05 DCW (Rec: 05/23/20 12:44 DCW [id number]) OP-PT Subjective Patient Comments Patient Comments Pt's notes that he better be doing well today, he just got out of bed. PT-OP-D Balance Start: 11/10/19 18:02 Freq: Status: Active Protocol: Document 01/04/20 13:45 DCW (Rec: 01/04/20 14:12 DCW [id number]) OP-PT Balance Assessment Standing Balance Static Standing Balance Ability Fair Dynamic Standing Balance Ability Fair Device Used large based quad cane Standing Balance Comments Fair standing balance with LBQC near by Tinetti Balance Assessment Sitting Balance Sitting Balance Steady, safe Arising from Chair Ability to Arise Able, uses arms to help Attempts to Arise Able, requires >1 attempt Standing Balance Immediate Standing Balance Steady w/o support Standing Balance Steady, wide stance Nudged Response Steady Standing with Eyes Closed Steady Turning Step Pattern Turning 360 Degrees Discontinuous steps Stability Turning 360 Degrees Unsteady, grabs/staggers Sitting Down Sitting Down Safe, steady Gait and Step Initiation of Gait No hesitancy Right Foot Step Length Does pass stance foot Right Foot Step Height Completely clears floor Left Foot Step Length Does not pass stance foot Left Foot Step Height Completely clears floor Step Description Step Symmetry Step length not equal Step Continuity Stopping or discontinuity Gait Description Path Description Mild/moderate deviation Trunk Description Marked sway or uses aide Walking Stance Heels together Scoring and Interpretation Tinetti Composite Score (points) 17 Interpretation of Scores High risk for falls(< 19) Tinetti Impairment Rating from Composite 20 to <40% Impaired (Score 17- Score 22) Estrella Fall Scale Copyright Permission PT-OP-E Functional Tests Start: 11/10/19 18:02 Freq: Status: Active Protocol: Document 01/04/20 13:45 DCW (Rec: 01/04/20 14:12 DCW [id number]) Functional Tests 6 Minute Walk Test Distance 328 Device Used large base quad cane Comments 0.91 ft/sec PT-OP-G Mobility & Gait Start: 11/10/19 18:02 Freq: Status: Active Protocol: Document 11/10/19 18:02 AMH (Rec: 11/10/19 18:05 AMH [email or web address]) OP Mobility Evaluation Bed Mobility Rolling able to roll in bed ind Supine to and from Sit able to transfer supine to and from sit ind Transfers Sit to Stand Heavy use of LUE to push up from chair. Pt had some instability with rising from chair. OP Gait Assessment Gait Gait Assistance Required: Standby Assistance Assistive Devices Assistive Device Large Based Quad Cane Orthotic/Prosthetic Devices or Brace: Yes Gait Deviations General Gait Pattern Antalgic,Decreased Stride Length,Decreased Feet Clearance,Narrow Based Gait Factors Limiting Gait Function Factors Limiting Gait Function Decreased Activity Tolerance, Decreased Strength,Poor Balance,Poor Safety Awareness PT-OP-M Strength Start: 11/10/19 18:02 Freq: Status: Active Protocol: Document 01/04/20 13:45 DCW (Rec: 01/04/20 14:12 DCW [id number]) Hip Strength Hip Manual Muscle Testing Right Flexion (L2) 2+ Poor+ Extension (S1) 2 Poor Abduction 2 Poor Adduction 2 Poor External Rotation 2+ Poor+ Internal Rotation 3 Fair Left Flexion (L2) 3+ Fair+ Extension (S1) 3+ Fair+ Abduction 3+ Fair+ Adduction 3+ Fair+ External Rotation 3+ Fair+ Internal Rotation 3+ Fair+ Knee Strength Knee Manual Muscle Testing Right Flexion (S2) 2 Poor Extension (L3) 2+ Poor+ Left Reason Not Measured WFL PT-OP-Q Treatments Start: 11/10/19 18:02 Freq: Status: Active Protocol: Document 05/23/20 12:05 DCW (Rec: 05/23/20 12:44 DCW [id number]) Cardio Equipment Recumbent Elliptical (Biodex) Duration (Minutes) 5 Resistance 4 Seat Position 9 Gym Equipment Shuttle Recovery Unilateral Squats Details Unilateral Squats Resistance 37# Shuttle Recovery Platform Stable Reps/Time x15 Bilateral Squats Details Bilateral Squats Resistance 62# Shuttle Recovery Platform Stable Reps/Time x20 Shuttle Balance red clips Details Red Comments Wide NATE, Staggered Therapeutic Exercises Standing Exercises 2 Standing Exercise Name Resisted side-stepping Resistance Yellow Equipment Used T-band Other Exercises hurdles Other Exercise Name Hurdles Resistance 4# Comments Fwd, Lateral PT-OP-T Assessment and Plan Start: 11/10/19 18:02 Freq: Status: Active Protocol: Document 05/23/20 12:05 DCW (Rec: 05/23/20 12:44 DCW [id number]) Physical Therapy Assessment Impairments Impairments Activity Tolerance,Balance, Coordination,Functional Activities,Functional Mobility ,Gait,Pain,Posture,ROM, Sensation,Soft Tissue Mobility ,Strength,Tone,Transfers Goals 4 Farm Mortgage Agent Goal (LTG) Pt will be able to perform 10 reps sit to stand with left UE support if needed in 30 sec to improve transition from sit to gait and decrease fall risk by 06/17/2020. 04/18/2020: Pt performs 4 reps sit to stand--1 with left hand support and 3 without UE support in 30 sec. LTG Duration 06/17/2020 Tinnetti Impairment high fall risk Short Term Goal (STG) Pt will improve his ability to turn and step up with gait patterns to decrease fall risk . STG Duration 02/15/20 - improving Jail Goal (LTG) Pt will increase Tinnetti score to at least 24/28 in order to decrease fall risk to low. 04/18/2020: Tinetti score is 13 /28. LTG Duration 06/17/2020 6MWT Impairment Pt amb 328 feet during 6MWT Farm Mortgage Agent Goal (LTG) A walking speed of <1.97 can indicate an increased risk of further functional decline. Pt to ambulate >400' during 6 MWT in order to decrease his risk. 04/18/2020: Pt gait trains 218 feet in 6 minutes with QC LTG Duration 06/17/2020 Gait Impairment gait deviations Short Term Goal (STG) Pt will be able to amb for 20 ft with minimal in-toeing of LLE in order to reduce risk of falls. STG Duration 02/15/20 - Improving Jail Goal (LTG) Pt will be able to amb for 50 ft without leaning onto LBQC for heavy support in order to reduce fall risk. 04/18/2020: Pt with minimal leaning into QC with gait, but has step-to gait d/t paraplegia and so he does lean into it to clear right foot. LTG Duration 06/17/2020 Progress Towards Goals Progress Towards Goals Progressing Toward Goals,Slow Progress due to Medical Issues Assessment Summary Assessment Pt performed better today, no L LE spasm, so activity wasn't limited. Physical Therapy Plan Frequency and Duration Frequency of Treatment 2x/Week Duration of Treatment 8 weeks Plan of Care Start Date 04/18/20 Plan of Care End Date 06/17/20 Therapeutic Interventions Therapeutic Interventions Balance Training,Gait Training ,Home Exercise Program, Neuromuscular Re-education, Orthotic/Prosthetic Management ,Patient/Caregiver Education, Self-Care/Home Management, Therapeutic Exercises Next Visit Focus/Plan Next Note Type Treatment Note Next Visit Plan Progress gait and other exercises to improve balance and strength
--- NOTE | 2020-05-25 12:47 | PT.OTN ---
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 (05/25/20) Weakness (05/25/20) Physical Therapy Treatment Note PT-OP-A Visit Information Start: 11/10/19 12:59 Freq: Status: Active Protocol: Document 05/25/20 12:00 DCW (Rec: 05/25/20 12:47 DCW [id number]) Out-Patient Physical Therapy Visit Information Visit Information Visit Type Treatment Note Visit Start Time 12:00 Visit Stop Time 12:45 Total Visit Minutes 45 Visit Number 3/6 Number of SHOES HAND SEWER Visits 0 Evaluation Information Evaluation Date 11/10/19 PT-OP-B Current Condition Start: 11/10/19 12:59 Freq: Status: Active Protocol: Document 11/10/19 17:38 AMH (Rec: 11/10/19 18:01 AMH [id number]) Current Condition History of Current Condition Onset Date CVA in 2013. Falls x3 & hospitalization 06/22/19, and August 2019 Current Complaints dec activitiy tolerance, poor balance, dec amb speed History of Current Condition Pt is a 63 y.o. 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 Pt has been seen at [facility] OP for PT, OT, ST over the past few years. He was recently hospitalized ( 06/22/19) for 3 falls in the same day. And then again in August 2019. The patient had very low sodium levels at the time One fall occured in the shower and 2 occured getting out of bed. Since recent hospitalization, daughter reports she has seen a decline in his function in dec cognitive processing. Pt has dec stamina with walking, is more unstable on his feet, has been shuffling more and appears to have less coordination. Daughter saraives he fell on 06/22/19 was due to pain in his LLE (from RA). Pt reports no sensation on RLE. He has a hx of Rhemuatoid Arthritis, blood clots, depression, diabetes mellitus I, falls, depression, heart attack, pacemaker, neuropathy, and R elbow surgery. Pt amb w a large base quad cane and DF assist AFO. Pt has had multiple falls prior to most recent hospitalization that normally occur with transitional movements like getting out of bed or into a car, prabhu when he is tired. There is an incline and gravel on their driveway which his daughter believes may be contributing to the falls with car transfers. Pt has required 24/7 caregiving since his CVA in 2013, which is provided by his daughter during the daytime and his at nighttime. Prior Treatments and Tests PT, OT, ST. Has seen improvements with PT, but discontinued d/t plateauing of function. Future Testing and Treatments Planned OT and speech at [facility] Treatment Goals Patient/Caregiver Goals To improve walking endurance, balance and to decrease fall risk. Prior Functional Status Baseline Function- ADL's Needs Assist Baseline Function- Mobility Needs Assist Baseline Function- Gait LBQC, AFO Baseline Function- Work/School NA Baseline Function- Recreation/Hobbies Able to ride in car with his daughter to drop of grandchildren at school. Able to amb short distances in the community w/LBQC. Able to use motorized carts at larger stores PT-OP-C Subjective Start: 11/10/19 12:59 Freq: Status: Active Protocol: Document 05/25/20 12:00 DCW (Rec: 05/25/20 12:47 DCW [id number]) OP-PT Subjective Patient Comments Patient Comments Pt indicates that he is doing well today. PT-OP-D Balance Start: 11/10/19 18:02 Freq: Status: Active Protocol: Document 01/04/20 13:45 DCW (Rec: 01/04/20 14:12 DCW [id number]) OP-PT Balance Assessment Standing Balance Static Standing Balance Ability Fair Dynamic Standing Balance Ability Fair Device Used large based quad cane Standing Balance Comments Fair standing balance with LBQC near by Tinetti Balance Assessment Sitting Balance Sitting Balance Steady, safe Arising from Chair Ability to Arise Able, uses arms to help Attempts to Arise Able, requires >1 attempt Standing Balance Immediate Standing Balance Steady w/o support Standing Balance Steady, wide stance Nudged Response Steady Standing with Eyes Closed Steady Turning Step Pattern Turning 360 Degrees Discontinuous steps Stability Turning 360 Degrees Unsteady, grabs/staggers Sitting Down Sitting Down Safe, steady Gait and Step Initiation of Gait No hesitancy Right Foot Step Length Does pass stance foot Right Foot Step Height Completely clears floor Left Foot Step Length Does not pass stance foot Left Foot Step Height Completely clears floor Step Description Step Symmetry Step length not equal Step Continuity Stopping or discontinuity Gait Description Path Description Mild/moderate deviation Trunk Description Marked sway or uses aide Walking Stance Heels together Scoring and Interpretation Tinetti Composite Score (points) 17 Interpretation of Scores High risk for falls(< 19) Tinetti Impairment Rating from Composite 20 to <40% Impaired (Score 17- Score 22) Estrella Fall Scale Copyright Permission PT-OP-E Functional Tests Start: 11/10/19 18:02 Freq: Status: Active Protocol: Document 01/04/20 13:45 DCW (Rec: 01/04/20 14:12 DCW [id number]) Functional Tests 6 Minute Walk Test Distance 328 Device Used large base quad cane Comments 0.91 ft/sec PT-OP-G Mobility & Gait Start: 11/10/19 18:02 Freq: Status: Active Protocol: Document 11/10/19 18:02 AMH (Rec: 11/10/19 18:05 AMH [email or web address]) OP Mobility Evaluation Bed Mobility Rolling able to roll in bed ind Supine to and from Sit able to transfer supine to and from sit ind Transfers Sit to Stand Heavy use of LUE to push up from chair. Pt had some instability with rising from chair. OP Gait Assessment Gait Gait Assistance Required: Standby Assistance Assistive Devices Assistive Device Large Based Quad Cane Orthotic/Prosthetic Devices or Brace: Yes Gait Deviations General Gait Pattern Antalgic,Decreased Stride Length,Decreased Feet Clearance,Narrow Based Gait Factors Limiting Gait Function Factors Limiting Gait Function Decreased Activity Tolerance, Decreased Strength,Poor Balance,Poor Safety Awareness PT-OP-M Strength Start: 11/10/19 18:02 Freq: Status: Active Protocol: Document 01/04/20 13:45 DCW (Rec: 01/04/20 14:12 DCW [id number]) Hip Strength Hip Manual Muscle Testing Right Flexion (L2) 2+ Poor+ Extension (S1) 2 Poor Abduction 2 Poor Adduction 2 Poor External Rotation 2+ Poor+ Internal Rotation 3 Fair Left Flexion (L2) 3+ Fair+ Extension (S1) 3+ Fair+ Abduction 3+ Fair+ Adduction 3+ Fair+ External Rotation 3+ Fair+ Internal Rotation 3+ Fair+ Knee Strength Knee Manual Muscle Testing Right Flexion (S2) 2 Poor Extension (L3) 2+ Poor+ Left Reason Not Measured WFL PT-OP-Q Treatments Start: 11/10/19 18:02 Freq: Status: Active Protocol: Document 05/25/20 12:00 DCW (Rec: 05/25/20 12:47 [facility] [id number]) Cardio Equipment Recumbent Elliptical (Biodex) Duration (Minutes) 5 Resistance 4 Seat Position 9 Gym Equipment Shuttle Recovery Unilateral Squats Details Unilateral Squats Resistance 37# Shuttle Recovery Platform Stable Reps/Time x15 Bilateral Squats Details Bilateral Squats Resistance 62# Shuttle Recovery Platform Stable Reps/Time x20 Shuttle Balance red clips Details Red Comments Wide NATE, Staggered Therapeutic Exercises Standing Exercises 2 Standing Exercise Name Resisted side-stepping Resistance Yellow Equipment Used T-band Other Exercises hurdles Other Exercise Name Hurdles Resistance 4# Comments Fwd, Lateral PT-OP-T Assessment and Plan Start: 11/10/19 18:02 Freq: Status: Active Protocol: Document 05/25/20 12:00 [facility] (Rec: 05/25/20 12:47 [facility] [id number]) Physical Therapy Assessment Impairments Impairments Activity Tolerance,Balance, Coordination,Functional Activities,Functional Mobility ,Gait,Pain,Posture,ROM, Sensation,Soft Tissue Mobility ,Strength,Tone,Transfers Goals 4 Mcc Goal (LTG) Pt will be able to perform 10 reps sit to stand with left UE support if needed in 30 sec to improve transition from sit to gait and decrease fall risk by 06/17/2020. 04/18/2020: Pt performs 4 reps sit to stand--1 with left hand support and 3 without UE support in 30 sec. LTG Duration 06/17/2020 Tinnetti Impairment high fall risk Short Term Goal (STG) Pt will improve his ability to turn and step up with gait patterns to decrease fall risk . STG Duration 02/15/20 - improving Mcc Goal (LTG) Pt will increase Tinnetti score to at least 24/28 in order to decrease fall risk to low. 04/18/2020: Tinetti score is 13 /28. LTG Duration 06/17/2020 6MWT Impairment Pt amb 328 feet during 6MWT Mcc Goal (LTG) A walking speed of <1.97 can indicate an increased risk of further functional decline. Pt to ambulate >400' during 6 MWT in order to decrease his risk. 04/18/2020: Pt gait trains 218 feet in 6 minutes with QC LTG Duration 06/17/2020 Gait Impairment gait deviations Short Term Goal (STG) Pt will be able to amb for 20 ft with minimal in-toeing of LLE in order to reduce risk of falls. STG Duration 02/15/20 - Improving Corn Lab Technician Goal (LTG) Pt will be able to amb for 50 ft without leaning onto LBQC for heavy support in order to reduce fall risk. 04/18/2020: Pt with minimal leaning into QC with gait, but has step-to gait d/t paraplegia and so he does lean into it to clear right foot. LTG Duration 06/17/2020 Progress Towards Goals Progress Towards Goals Progressing Toward Goals,Slow Progress due to Medical Issues Assessment Summary Assessment Pt did very well today, did not have any need for extended rest breaks. No concerns today. Physical Therapy Plan Frequency and Duration Frequency of Treatment 2x/Week Duration of Treatment 8 weeks Plan of Care Start Date 04/18/20 Plan of Care End Date 06/17/20 Therapeutic Interventions Therapeutic Interventions Balance Training,Gait Training ,Home Exercise Program, Neuromuscular Re-education, Orthotic/Prosthetic Management ,Patient/Caregiver Education, Self-Care/Home Management, Therapeutic Exercises Next Visit Focus/Plan Next Note Type Treatment Note Next Visit Plan Progress gait and other exercises to improve balance and strength
--- NOTE | 2020-05-30 12:48 | PT.OTN ---
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 (05/30/20) Weakness (05/30/20) Physical Therapy Treatment Note PT-OP-A Visit Information Start: 11/10/19 12:59 Freq: Status: Active Protocol: Document 05/30/20 12:05 DCW (Rec: 05/30/20 12:48 DCW [id number]) Out-Patient Physical Therapy Visit Information Visit Information Visit Type Treatment Note Visit Start Time 12:05 Visit Stop Time 12:45 Total Visit Minutes 40 Visit Number 4/6 Number of CLOTHES DRIER ASSEMBLER Visits 0 Evaluation Information Evaluation Date 11/10/19 PT-OP-B Current Condition Start: 11/10/19 12:59 Freq: Status: Active Protocol: Document 11/10/19 17:38 AMH (Rec: 11/10/19 18:01 AMH [id number]) Current Condition History of Current Condition Onset Date CVA in 2013. Falls x3 & hospitalization 06/22/19, and August 2019 Current Complaints dec activitiy tolerance, poor balance, dec amb speed History of Current Condition Pt is a 63 y.o. 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 Pt has been seen at [facility] for PT, OT, ST over the past few years. He was recently hospitalized ( 06/22/19) for 3 falls in the same day. And then again in August 2019. The patient had very low sodium levels at the time One fall occured in the shower and 2 occured getting out of bed. Since recent hospitalization, daughter reports she has seen a decline in his function in dec cognitive processing. Pt has dec stamina with walking, is more unstable on his feet, has been shuffling more and appears to have less coordination. Daughter belives he fell on 06/22/19 was due to pain in his LLE (from RA). Pt reports no sensation on RLE. He has a hx of Rhemuatoid Arthritis, blood clots, depression, diabetes mellitus I, falls, depression, heart attack, pacemaker, neuropathy, and R elbow surgery. Pt amb w a large base quad cane and DF assist AFO. Pt has had multiple falls prior to most recent hospitalization that normally occur with transitional movements like getting out of bed or into a car, prabhu when he is tired. There is an incline and gravel on their driveway which his daughter believes may be contributing to the falls with car transfers. Pt has required 24/7 caregiving since his CVA in 2013, which is provided by his daughter during the daytime and his at nighttime. Prior Treatments and Tests PT, OT, ST. Has seen improvements with PT, but discontinued d/t plateauing of function. Future Testing and Treatments Planned OT and speech at [facility] Treatment Goals Patient/Caregiver Goals To improve walking endurance, balance and to decrease fall risk. Prior Functional Status Baseline Function- ADL's Needs Assist Baseline Function- Mobility Needs Assist Baseline Function- Gait LBQC, AFO Baseline Function- Work/School NA Baseline Function- Recreation/Hobbies Able to ride in car with his daughter to drop of grandchildren at school. Able to amb short distances in the community w/LBQC. Able to use motorized carts at larger stores PT-OP-C Subjective Start: 11/10/19 12:59 Freq: Status: Active Protocol: Document 05/30/20 12:05 DCW (Rec: 05/30/20 12:48 DCW [id number]) OP-PT Subjective Patient Comments Patient Comments Pt's reports he seems to be doing well today, notes he is scheduled for his arthritis shot later today, and he normally starts getting really sore leading up to his shot, but that doesn't seem to be happening right now. PT-OP-D Balance Start: 11/10/19 18:02 Freq: Status: Active Protocol: Document 01/04/20 13:45 DCW (Rec: 01/04/20 14:12 DCW [id number]) OP-PT Balance Assessment Standing Balance Static Standing Balance Ability Fair Dynamic Standing Balance Ability Fair Device Used large based quad cane Standing Balance Comments Fair standing balance with LBQC near by Tinetti Balance Assessment Sitting Balance Sitting Balance Steady, safe Arising from Chair Ability to Arise Able, uses arms to help Attempts to Arise Able, requires >1 attempt Standing Balance Immediate Standing Balance Steady w/o support Standing Balance Steady, wide stance Nudged Response Steady Standing with Eyes Closed Steady Turning Step Pattern Turning 360 Degrees Discontinuous steps Stability Turning 360 Degrees Unsteady, grabs/staggers Sitting Down Sitting Down Safe, steady Gait and Step Initiation of Gait No hesitancy Right Foot Step Length Does pass stance foot Right Foot Step Height Completely clears floor Left Foot Step Length Does not pass stance foot Left Foot Step Height Completely clears floor Step Description Step Symmetry Step length not equal Step Continuity Stopping or discontinuity Gait Description Path Description Mild/moderate deviation Trunk Description Marked sway or uses aide Walking Stance Heels together Scoring and Interpretation Tinetti Composite Score (points) 17 Interpretation of Scores High risk for falls(< 19) Tinetti Impairment Rating from Composite 20 to <40% Impaired (Score 17- Score 22) Estrella Fall Scale Copyright Permission PT-OP-E Functional Tests Start: 11/10/19 18:02 Freq: Status: Active Protocol: Document 01/04/20 13:45 DCW (Rec: 01/04/20 14:12 DCW [id number]) Functional Tests 6 Minute Walk Test Distance 328 Device Used large base quad cane Comments 0.91 ft/sec PT-OP-G Mobility & Gait Start: 11/10/19 18:02 Freq: Status: Active Protocol: Document 11/10/19 18:02 AMH (Rec: 11/10/19 18:05 AMH [email or web address]) OP Mobility Evaluation Bed Mobility Rolling able to roll in bed ind Supine to and from Sit able to transfer supine to and from sit ind Transfers Sit to Stand Heavy use of LUE to push up from chair. Pt had some instability with rising from chair. OP Gait Assessment Gait Gait Assistance Required: Standby Assistance Assistive Devices Assistive Device Large Based Quad Cane Orthotic/Prosthetic Devices or Brace: Yes Gait Deviations General Gait Pattern Antalgic,Decreased Stride Length,Decreased Feet Clearance,Narrow Based Gait Factors Limiting Gait Function Factors Limiting Gait Function Decreased Activity Tolerance, Decreased Strength,Poor Balance,Poor Safety Awareness PT-OP-M Strength Start: 11/10/19 18:02 Freq: Status: Active Protocol: Document 01/04/20 13:45 DCW (Rec: 01/04/20 14:12 DCW [id number]) Hip Strength Hip Manual Muscle Testing Right Flexion (L2) 2+ Poor+ Extension (S1) 2 Poor Abduction 2 Poor Adduction 2 Poor External Rotation 2+ Poor+ Internal Rotation 3 Fair Left Flexion (L2) 3+ Fair+ Extension (S1) 3+ Fair+ Abduction 3+ Fair+ Adduction 3+ Fair+ External Rotation 3+ Fair+ Internal Rotation 3+ Fair+ Knee Strength Knee Manual Muscle Testing Right Flexion (S2) 2 Poor Extension (L3) 2+ Poor+ Left Reason Not Measured WFL PT-OP-Q Treatments Start: 11/10/19 18:02 Freq: Status: Active Protocol: Document 05/30/20 12:05 DCW (Rec: 05/30/20 12:48 DCW [id number]) Cardio Equipment Recumbent Elliptical (Biodex) Duration (Minutes) 5 Resistance 5 Seat Position 9 Gym Equipment Shuttle Recovery Unilateral Squats Details Unilateral Squats Resistance 37# Shuttle Recovery Platform Stable Reps/Time x15 Bilateral Squats Details Bilateral Squats Resistance 62# Shuttle Recovery Platform Stable Reps/Time x20 Shuttle Balance red clips Details Red Comments Wide NATE, Staggered Therapeutic Exercises Standing Exercises 2 Standing Exercise Name Resisted side-stepping Resistance Yellow Equipment Used T-band Other Exercises hurdles Other Exercise Name Hurdles Resistance 4# Comments Fwd, Lateral PT-OP-T Assessment and Plan Start: 11/10/19 18:02 Freq: Status: Active Protocol: Document 05/30/20 12:05 DCW (Rec: 05/30/20 12:48 DCW [id number]) Physical Therapy Assessment Impairments Impairments Activity Tolerance,Balance, Coordination,Functional Activities,Functional Mobility ,Gait,Pain,Posture,ROM, Sensation,Soft Tissue Mobility ,Strength,Tone,Transfers Goals 4 Fci Goal (LTG) Pt will be able to perform 10 reps sit to stand with left UE support if needed in 30 sec to improve transition from sit to gait and decrease fall risk by 06/17/2020. 04/18/2020: Pt performs 4 reps sit to stand--1 with left hand support and 3 without UE support in 30 sec. LTG Duration 06/17/2020 Tinnetti Impairment high fall risk Short Term Goal (STG) Pt will improve his ability to turn and step up with gait patterns to decrease fall risk . STG Duration 02/15/20 - improving Fci Goal (LTG) Pt will increase Tinnetti score to at least 24/28 in order to decrease fall risk to low. 04/18/2020: Tinetti score is 13 /28. LTG Duration 06/17/2020 6MWT Impairment Pt amb 328 feet during 6MWT Fci Goal (LTG) A walking speed of <1.97 can indicate an increased risk of further functional decline. Pt to ambulate >400' during 6 MWT in order to decrease his risk. 04/18/2020: Pt gait trains 218 feet in 6 minutes with QC LTG Duration 06/17/2020 Gait Impairment gait deviations Short Term Goal (STG) Pt will be able to amb for 20 ft with minimal in-toeing of LLE in order to reduce risk of falls. STG Duration 02/15/20 - Improving Merry Go Round Attendant Goal (LTG) Pt will be able to amb for 50 ft without leaning onto LBQC for heavy support in order to reduce fall risk. 04/18/2020: Pt with minimal leaning into QC with gait, but has step-to gait d/t paraplegia and so he does lean into it to clear right foot. LTG Duration 06/17/2020 Progress Towards Goals Progress Towards Goals Progressing Toward Goals,Slow Progress due to Medical Issues Assessment Summary Assessment Pt continues to show progress with activity tolerance, still unclear how much activity is performed outside of therapy. Physical Therapy Plan Frequency and Duration Frequency of Treatment 2x/Week Duration of Treatment 8 weeks Plan of Care Start Date 04/18/20 Plan of Care End Date 06/17/20 Therapeutic Interventions Therapeutic Interventions Balance Training,Gait Training ,Home Exercise Program, Neuromuscular Re-education, Orthotic/Prosthetic Management ,Patient/Caregiver Education, Self-Care/Home Management, Therapeutic Exercises Next Visit Focus/Plan Next Note Type Treatment Note Next Visit Plan Progress gait and other exercises to improve balance and strength
--- NOTE | 2020-06-01 12:51 | PT.OTN ---
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 (06/01/20) Weakness (06/01/20) Physical Therapy Treatment Note PT-OP-A Visit Information Start: 11/10/19 12:59 Freq: Status: Active Protocol: Document 06/01/20 12:00 DCW (Rec: 06/01/20 12:51 DCW [id number]) Out-Patient Physical Therapy Visit Information Visit Information Visit Type Treatment Note Visit Start Time 12:00 Visit Stop Time 12:45 Total Visit Minutes 45 Visit Number 5/6 Number of FIBERGLASS PIPE COVERING SUPERVISOR Visits 0 Evaluation Information Evaluation Date 11/10/19 PT-OP-B Current Condition Start: 11/10/19 12:59 Freq: Status: Active Protocol: Document 11/10/19 17:38 AMH (Rec: 11/10/19 18:01 AMH [email or web address]) Current Condition History of Current Condition Onset Date CVA in 2013. Falls x3 & hospitalization 06/22/19, and August 2019 Current Complaints dec activitiy tolerance, poor balance, dec amb speed History of Current Condition Pt is a 63 y.o. 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 Pt has been seen at [facility] for PT, OT, ST over the past few years. He was recently hospitalized ( 06/22/19) for 3 falls in the same day. And then again in August 2019. The patient had very low sodium levels at the time One fall occured in the shower and 2 occured getting out of bed. Since recent hospitalization, daughter reports she has seen a decline in his function in dec cognitive processing. Pt has dec stamina with walking, is more unstable on his feet, has been shuffling more and appears to have less coordination. Daughter belives he fell on 06/22/19 was due to pain in his LLE (from RA). Pt reports no sensation on RLE. He has a hx of Rhemuatoid Arthritis, blood clots, depression, diabetes mellitus I, falls, depression, heart attack, pacemaker, neuropathy, and R elbow surgery. Pt amb w a large base quad cane and DF assist AFO. Pt has had multiple falls prior to most recent hospitalization that normally occur with transitional movements like getting out of bed or into a car, prabhu when he is tired. There is an incline and gravel on their driveway which his daughter believes may be contributing to the falls with car transfers. Pt has required 24/7 caregiving since his CVA in 2013, which is provided by his daughter during the daytime and his at nighttime. Prior Treatments and Tests PT, OT, ST. Has seen improvements with PT, but discontinued d/t plateauing of function. Future Testing and Treatments Planned OT and speech at [facility] Treatment Goals Patient/Caregiver Goals To improve walking endurance, balance and to decrease fall risk. Prior Functional Status Baseline Function- ADL's Needs Assist Baseline Function- Mobility Needs Assist Baseline Function- Gait LBQC, AFO Baseline Function- Work/School NA Baseline Function- Recreation/Hobbies Able to ride in car with his daughter to drop of grandchildren at school. Able to amb short distances in the community w/LBQC. Able to use motorized carts at larger stores PT-OP-C Subjective Start: 11/10/19 12:59 Freq: Status: Active Protocol: Document 06/01/20 12:00 DCW (Rec: 06/01/20 12:51 DCW [id number]) OP-PT Subjective Patient Comments Patient Comments Pt notes that he feels ehh today. PT-OP-D Balance Start: 11/10/19 18:02 Freq: Status: Active Protocol: Document 01/04/20 13:45 DCW (Rec: 01/04/20 14:12 DCW [id number]) OP-PT Balance Assessment Standing Balance Static Standing Balance Ability Fair Dynamic Standing Balance Ability Fair Device Used large based quad cane Standing Balance Comments Fair standing balance with LBQC near by Tinetti Balance Assessment Sitting Balance Sitting Balance Steady, safe Arising from Chair Ability to Arise Able, uses arms to help Attempts to Arise Able, requires >1 attempt Standing Balance Immediate Standing Balance Steady w/o support Standing Balance Steady, wide stance Nudged Response Steady Standing with Eyes Closed Steady Turning Step Pattern Turning 360 Degrees Discontinuous steps Stability Turning 360 Degrees Unsteady, grabs/staggers Sitting Down Sitting Down Safe, steady Gait and Step Initiation of Gait No hesitancy Right Foot Step Length Does pass stance foot Right Foot Step Height Completely clears floor Left Foot Step Length Does not pass stance foot Left Foot Step Height Completely clears floor Step Description Step Symmetry Step length not equal Step Continuity Stopping or discontinuity Gait Description Path Description Mild/moderate deviation Trunk Description Marked sway or uses aide Walking Stance Heels together Scoring and Interpretation Tinetti Composite Score (points) 17 Interpretation of Scores High risk for falls(< 19) Tinetti Impairment Rating from Composite 20 to <40% Impaired (Score 17- Score 22) Estrella Fall Scale Copyright Permission PT-OP-E Functional Tests Start: 11/10/19 18:02 Freq: Status: Active Protocol: Document 01/04/20 13:45 DCW (Rec: 01/04/20 14:12 DCW [id number]) Functional Tests 6 Minute Walk Test Distance 328 Device Used large base quad cane Comments 0.91 ft/sec PT-OP-G Mobility & Gait Start: 11/10/19 18:02 Freq: Status: Active Protocol: Document 11/10/19 18:02 AMH (Rec: 11/10/19 18:05 AMH [email or web address]) OP Mobility Evaluation Bed Mobility Rolling able to roll in bed ind Supine to and from Sit able to transfer supine to and from sit ind Transfers Sit to Stand Heavy use of LUE to push up from chair. Pt had some instability with rising from chair. OP Gait Assessment Gait Gait Assistance Required: Standby Assistance Assistive Devices Assistive Device Large Based Quad Cane Orthotic/Prosthetic Devices or Brace: Yes Gait Deviations General Gait Pattern Antalgic,Decreased Stride Length,Decreased Feet Clearance,Narrow Based Gait Factors Limiting Gait Function Factors Limiting Gait Function Decreased Activity Tolerance, Decreased Strength,Poor Balance,Poor Safety Awareness PT-OP-M Strength Start: 11/10/19 18:02 Freq: Status: Active Protocol: Document 01/04/20 13:45 DCW (Rec: 01/04/20 14:12 DCW [id number]) Hip Strength Hip Manual Muscle Testing Right Flexion (L2) 2+ Poor+ Extension (S1) 2 Poor Abduction 2 Poor Adduction 2 Poor External Rotation 2+ Poor+ Internal Rotation 3 Fair Left Flexion (L2) 3+ Fair+ Extension (S1) 3+ Fair+ Abduction 3+ Fair+ Adduction 3+ Fair+ External Rotation 3+ Fair+ Internal Rotation 3+ Fair+ Knee Strength Knee Manual Muscle Testing Right Flexion (S2) 2 Poor Extension (L3) 2+ Poor+ Left Reason Not Measured WFL PT-OP-Q Treatments Start: 11/10/19 18:02 Freq: Status: Active Protocol: Document 06/01/20 12:00 DCW (Rec: 06/01/20 12:51 DCW [id number]) Cardio Equipment Recumbent Elliptical (Biodex) Duration (Minutes) 5 Resistance 5 Seat Position 9 Gym Equipment Shuttle Recovery Unilateral Squats Details Unilateral Squats Resistance 37# Shuttle Recovery Platform Stable Reps/Time x15 Bilateral Squats Details Bilateral Squats Resistance 62# Shuttle Recovery Platform Stable Reps/Time x20 Shuttle Balance red clips Details Red Comments Wide NATE, Staggered Therapeutic Exercises Standing Exercises 2 Standing Exercise Name Resisted side-stepping, fwd/ bkwd Resistance Yellow Equipment Used T-band Other Exercises hurdles Other Exercise Name Hurdles Resistance 4# Comments Fwd, Lateral PT-OP-T Assessment and Plan Start: 11/10/19 18:02 Freq: Status: Active Protocol: Document 06/01/20 12:00 DCW (Rec: 06/01/20 12:51 DCW [id number]) Physical Therapy Assessment Impairments Impairments Activity Tolerance,Balance, Coordination,Functional Activities,Functional Mobility ,Gait,Pain,Posture,ROM, Sensation,Soft Tissue Mobility ,Strength,Tone,Transfers Goals 4 Hooker Up Goal (LTG) Pt will be able to perform 10 reps sit to stand with left UE support if needed in 30 sec to improve transition from sit to gait and decrease fall risk by 06/17/2020. 04/18/2020: Pt performs 4 reps sit to stand--1 with left hand support and 3 without UE support in 30 sec. LTG Duration 06/17/2020 Tinnetti Impairment high fall risk Short Term Goal (STG) Pt will improve his ability to turn and step up with gait patterns to decrease fall risk . STG Duration 02/15/20 - improving Hooker Up Goal (LTG) Pt will increase Tinnetti score to at least 24/28 in order to decrease fall risk to low. 04/18/2020: Tinetti score is 13 /28. LTG Duration 06/17/2020 6MWT Impairment Pt amb 328 feet during 6MWT Hooker Up Goal (LTG) A walking speed of <1.97 can indicate an increased risk of further functional decline. Pt to ambulate >400' during 6 MWT in order to decrease his risk. 04/18/2020: Pt gait trains 218 feet in 6 minutes with QC LTG Duration 06/17/2020 Gait Impairment gait deviations Short Term Goal (STG) Pt will be able to amb for 20 ft with minimal in-toeing of LLE in order to reduce risk of falls. STG Duration 02/15/20 - Improving Intermediate Goal (LTG) Pt will be able to amb for 50 ft without leaning onto LBQC for heavy support in order to reduce fall risk. 04/18/2020: Pt with minimal leaning into QC with gait, but has step-to gait d/t paraplegia and so he does lean into it to clear right foot. LTG Duration 06/17/2020 Progress Towards Goals Progress Towards Goals Progressing Toward Goals,Slow Progress due to Medical Issues Assessment Summary Assessment Pt overall did well today, increased stability on shuttle balance, demonstrated improving lateral hip strength . Physical Therapy Plan Frequency and Duration Frequency of Treatment 2x/Week Duration of Treatment 8 weeks Plan of Care Start Date 04/18/20 Plan of Care End Date 06/17/20 Therapeutic Interventions Therapeutic Interventions Balance Training,Gait Training ,Home Exercise Program, Neuromuscular Re-education, Orthotic/Prosthetic Management ,Patient/Caregiver Education, Self-Care/Home Management, Therapeutic Exercises Next Visit Focus/Plan Next Note Type Treatment Note Next Visit Plan Progress gait and other exercises to improve balance and strength
--- NOTE | 2020-06-14 17:40 | PT.OTN ---
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 (06/14/20) Weakness (06/14/20) Physical Therapy Treatment Note PT-OP-A Visit Information Start: 11/10/19 12:59 Freq: Status: Active Protocol: Document 06/14/20 16:45 DCW (Rec: 06/14/20 17:39 DCW [id number]) Out-Patient Physical Therapy Visit Information Visit Information Visit Type Progress Note Visit Start Time 16:45 Visit Stop Time 17:30 Total Visit Minutes 45 Visit Number 6/6 Number of SHOELACE TIPPING MACHINE OPERATOR Visits 0 Evaluation Information Evaluation Date 11/10/19 PT-OP-B Current Condition Start: 11/10/19 12:59 Freq: Status: Active Protocol: Document 11/10/19 17:38 AMH (Rec: 11/10/19 18:01 AMH [id number]) Current Condition History of Current Condition Onset Date CVA in 2013. Falls x3 & hospitalization 06/22/19, and August 2019 Current Complaints dec activitiy tolerance, poor balance, dec amb speed History of Current Condition Pt is a 63 y.o. 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 Pt has been seen at [facility] for PT, OT, ST over the past few years. He was recently hospitalized ( 06/22/19) for 3 falls in the same day. And then again in August 2019. The patient had very low sodium levels at the time One fall occured in the shower and 2 occured getting out of bed. Since recent hospitalization, daughter reports she has seen a decline in his function in dec cognitive processing. Pt has dec stamina with walking, is more unstable on his feet, has been shuffling more and appears to have less coordination. Daughter belives he fell on 06/22/19 was due to pain in his LLE (from RA). Pt reports no sensation on RLE. He has a hx of Rhemuatoid Arthritis, blood clots, depression, diabetes mellitus I, falls, depression, heart attack, pacemaker, neuropathy, and R elbow surgery. Pt amb w a large base quad cane and DF assist AFO. Pt has had multiple falls prior to most recent hospitalization that normally occur with transitional movements like getting out of bed or into a car, prabhu when he is tired. There is an incline and gravel on their driveway which his daughter believes may be contributing to the falls with car transfers. Pt has required 24/7 caregiving since his CVA in 2013, which is provided by his daughter during the daytime and his at nighttime. Prior Treatments and Tests PT, OT, ST. Has seen improvements with PT, but discontinued d/t plateauing of function. Future Testing and Treatments Planned OT and speech at [facility] Treatment Goals Patient/Caregiver Goals To improve walking endurance, balance and to decrease fall risk. Prior Functional Status Baseline Function- ADL's Needs Assist Baseline Function- Mobility Needs Assist Baseline Function- Gait LBQC, AFO Baseline Function- Work/School NA Baseline Function- Recreation/Hobbies Able to ride in car with his daughter to drop of grandchildren at school. Able to amb short distances in the community w/LBQC. Able to use motorized carts at larger stores PT-OP-C Subjective Start: 11/10/19 12:59 Freq: Status: Active Protocol: Document 06/14/20 16:45 DCW (Rec: 06/14/20 17:39 DCW [id number]) OP-PT Subjective Patient Comments Patient Comments Pt indicates he is doing well today. PT-OP-D Balance Start: 11/10/19 18:02 Freq: Status: Active Protocol: Document 06/14/20 16:45 DCW (Rec: 06/14/20 17:14 DCW [id number]) Tinetti Balance Assessment Sitting Balance Sitting Balance Steady, safe Arising from Chair Ability to Arise Able, uses arms to help Attempts to Arise Arises on 1st attempt Standing Balance Immediate Standing Balance Steady w/o support Standing Balance Narrow stance w/o support Nudged Response Steady Standing with Eyes Closed Steady Turning Step Pattern Turning 360 Degrees Discontinuous steps Stability Turning 360 Degrees Steady Sitting Down Sitting Down Uses arms or unsteady Gait and Step Initiation of Gait No hesitancy Right Foot Step Length Does pass stance foot Right Foot Step Height Completely clears floor Left Foot Step Length Does not pass stance foot Left Foot Step Height Completely clears floor Step Description Step Symmetry Step length not equal Step Continuity Stopping or discontinuity Gait Description Path Description Mild/moderate deviation Trunk Description Marked sway or uses aide Walking Stance Heels together Scoring and Interpretation Tinetti Composite Score (points) 19 Interpretation of Scores At risk for falls (19-24) Tinetti Impairment Rating from Composite 20 to <40% Impaired (Score 17- Score 22) PT-OP-E Functional Tests Start: 11/10/19 18:02 Freq: Status: Active Protocol: Document 06/14/20 16:45 DCW (Rec: 06/14/20 17:14 DCW [id number]) Functional Tests 6 Minute Walk Test Distance 380 Device Used large base quad cane Comments 1.06 ft/sec PT-OP-G Mobility & Gait Start: 11/10/19 18:02 Freq: Status: Active Protocol: Document 11/10/19 18:02 AMH (Rec: 11/10/19 18:05 AMH [email or web address]) OP Mobility Evaluation Bed Mobility Rolling able to roll in bed ind Supine to and from Sit able to transfer supine to and from sit ind Transfers Sit to Stand Heavy use of LUE to push up from chair. Pt had some instability with rising from chair. OP Gait Assessment Gait Gait Assistance Required: Standby Assistance Assistive Devices Assistive Device Large Based Quad Cane Orthotic/Prosthetic Devices or Brace: Yes Gait Deviations General Gait Pattern Antalgic,Decreased Stride Length,Decreased Feet Clearance,Narrow Based Gait Factors Limiting Gait Function Factors Limiting Gait Function Decreased Activity Tolerance, Decreased Strength,Poor Balance,Poor Safety Awareness PT-OP-M Strength Start: 11/10/19 18:02 Freq: Status: Active Protocol: Document 01/04/20 13:45 DCW (Rec: 01/04/20 14:12 DCW [id number]) Hip Strength Hip Manual Muscle Testing Right Flexion (L2) 2+ Poor+ Extension (S1) 2 Poor Abduction 2 Poor Adduction 2 Poor External Rotation 2+ Poor+ Internal Rotation 3 Fair Left Flexion (L2) 3+ Fair+ Extension (S1) 3+ Fair+ Abduction 3+ Fair+ Adduction 3+ Fair+ External Rotation 3+ Fair+ Internal Rotation 3+ Fair+ Knee Strength Knee Manual Muscle Testing Right Flexion (S2) 2 Poor Extension (L3) 2+ Poor+ Left Reason Not Measured WFL PT-OP-Q Treatments Start: 11/10/19 18:02 Freq: Status: Active Protocol: Document 06/14/20 16:45 DCW (Rec: 06/14/20 17:39 DCW [id number]) Cardio Equipment Recumbent Elliptical (Simple Tithe) Duration (Minutes) 5 Resistance 5 Seat Position 9 Therapeutic Exercises Standing Exercises 2 Standing Exercise Name Resisted side-stepping, fwd Resistance Green Equipment Used T-band 1 Standing Exercise Name Toe-taps Side bilateral Resistance 5# Equipment Used 6 step Other Exercises hurdles Other Exercise Name Hurdles Resistance 5# Comments Fwd, Lateral Neuro Re-Education Treatment Other Activities Tinetti standing balance exercises Details Testing: Tinetti, 6MWT PT-OP-T Assessment and Plan Start: 11/10/19 18:02 Freq: Status: Active Protocol: Document 06/14/20 16:45 DCW (Rec: 06/14/20 17:39 DCW [id number]) Physical Therapy Assessment Impairments Impairments Activity Tolerance,Balance, Coordination,Functional Activities,Functional Mobility ,Gait,Pain,Posture,ROM, Sensation,Soft Tissue Mobility ,Strength,Tone,Transfers Goals 4 Review Engineer Goal (LTG) Pt will be able to perform 10 reps sit to stand with left UE support if needed in 30 sec to improve transition from sit to gait and decrease fall risk by 06/17/2020. 04/18/2020: Pt performs 4 reps sit to stand--1 with left hand support and 3 without UE support in 30 sec. LTG Duration 06/17/2020 Tinnetti Impairment high fall risk Short Term Goal (STG) Pt will improve his ability to turn and step up with gait patterns to decrease fall risk . STG Duration 02/15/20 - improving Review Engineer Goal (LTG) Pt will increase Tinnetti score to at least 24/28 in order to decrease fall risk to low. 04/18/2020: Tinetti score is 13 /28. LTG Duration 06/17/2020 6MWT Impairment Pt amb 328 feet during 6MWT Fci Goal (LTG) A walking speed of <1.97 can indicate an increased risk of further functional decline. Pt to ambulate >400' during 6 MWT in order to decrease his risk. 04/18/2020: Pt gait trains 218 feet in 6 minutes with QC LTG Duration 06/17/2020 Gait Impairment gait deviations Short Term Goal (STG) Pt will be able to amb for 20 ft with minimal in-toeing of LLE in order to reduce risk of falls. STG Duration 02/15/20 - Improving Fci Goal (LTG) Pt will be able to amb for 50 ft without leaning onto LBQC for heavy support in order to reduce fall risk. 04/18/2020: Pt with minimal leaning into QC with gait, but has step-to gait d/t paraplegia and so he does lean into it to clear right foot. LTG Duration 06/17/2020 Progress Towards Goals Progress Towards Goals Progressing Toward Goals,Slow Progress due to Medical Issues Assessment Summary Assessment Pt making significant improvements since initial evaluation in November. Tinetti score improved from 05/31 to , and 6 MWT distance improved from 224' to 380'. Continue skilled therapy to improve balance, decrease falls risk, and improve strength Physical Therapy Plan Frequency and Duration Frequency of Treatment 2x/Week Duration of Treatment 8 weeks Plan of Care Start Date 06/14/20 Plan of Care End Date 08/09/20 Therapeutic Interventions Therapeutic Interventions Balance Training,Gait Training ,Home Exercise Program, Neuromuscular Re-education, Orthotic/Prosthetic Management ,Patient/Caregiver Education, Self-Care/Home Management, Therapeutic Exercises Next Visit Focus/Plan Next Note Type Treatment Note Next Visit Plan Progress gait and other exercises to improve balance and strength
--- NOTE | 2020-06-14 17:40 | PT.OPPOC ---
Physical, Occupational & Speech Therapy At [facility] 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 (06/14/20) Weakness (06/14/20) Visit Care Team Role Provider Type Delfino Epstein MD Attending Provider Physician Primary Care Provider Specialty: [facility] Practice Address: [address] [place] [address], [id number] Email: [email or web address] Plan Of Care PT-OP-T Assessment and Plan Start: 11/10/19 18:02 Freq: Status: Active Protocol: Document 06/14/20 16:45 DCW (Rec: 06/14/20 17:39 DCW [id number]) Physical Therapy Assessment Impairments Impairments Activity Tolerance,Balance, Coordination,Functional Activities,Functional Mobility ,Gait,Pain,Posture,ROM, Sensation,Soft Tissue Mobility ,Strength,Tone,Transfers Goals 4 Long-Term Goal (LTG) Pt will be able to perform 10 reps sit to stand with left UE support if needed in 30 sec to improve transition from sit to gait and decrease fall risk by 06/17/2020. 04/18/2020: Pt performs 4 reps sit to stand--1 with left hand support and 3 without UE support in 30 sec. LTG Duration 06/17/2020 Tinnetti Impairment high fall risk Short Term Goal (STG) Pt will improve his ability to turn and step up with gait patterns to decrease fall risk . STG Duration 02/15/20 - improving Vascular Manager Goal (LTG) Pt will increase Tinnetti score to at least 24/28 in order to decrease fall risk to low. 04/18/2020: Tinetti score is 13 /28. LTG Duration 06/17/2020 6MWT Impairment Pt amb 328 feet during 6MWT Long-Term Goal (LTG) A walking speed of <1.97 can indicate an increased risk of further functional decline. Pt to ambulate >400' during 6 MWT in order to decrease his risk. 04/18/2020: Pt gait trains 218 feet in 6 minutes with QC LTG Duration 06/17/2020 Gait Impairment gait deviations Short Term Goal (STG) Pt will be able to amb for 20 ft with minimal in-toeing of LLE in order to reduce risk of falls. STG Duration 02/15/20 - Improving Vascular Manager Goal (LTG) Pt will be able to amb for 50 ft without leaning onto LBQC for heavy support in order to reduce fall risk. 04/18/2020: Pt with minimal leaning into QC with gait, but has step-to gait d/t paraplegia and so he does lean into it to clear right foot. LTG Duration 06/17/2020 Progress Towards Goals Progress Towards Goals Progressing Toward Goals,Slow Progress due to Medical Issues Assessment Summary Assessment Pt making significant improvements since initial evaluation in November. Tinetti score improved from 05/31 to , and 6 MWT distance improved from 224' to 380'. Continue skilled therapy to improve balance, decrease falls risk, and improve strength Physical Therapy Plan Frequency and Duration Frequency of Treatment 2x/Week Duration of Treatment 8 weeks Plan of Care Start Date 06/14/20 Plan of Care End Date 08/09/20 Therapeutic Interventions Therapeutic Interventions Balance Training,Gait Training ,Home Exercise Program, Neuromuscular Re-education, Orthotic/Prosthetic Management ,Patient/Caregiver Education, Self-Care/Home Management, Therapeutic Exercises Next Visit Focus/Plan Next Note Type Treatment Note Next Visit Plan Progress gait and other exercises to improve balance and strength Plan of Care Dates Plan of Care Start Date 06/14/20 Plan of Care End Date 08/09/20 Electronically Signed by: Jefferson Ceron, PT 06/14/20 [id number] Please Sign and Return: I have reviewed this Plan of Care and certify that the skilled therapy services above are required to meet the patient?s needs. Physician Signature Date Printed Name and Credentials Clinical Instructor Signature Printed Name and Credentials
--- NOTE | 2020-06-22 16:01 | PT.OTN ---
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 (06/22/20) Weakness (06/22/20) Physical Therapy Treatment Note PT-OP-A Visit Information Start: 11/10/19 12:59 Freq: Status: Active Protocol: Document 06/22/20 15:15 DCW (Rec: 06/22/20 16:01 DCW [id number]) Out-Patient Physical Therapy Visit Information Visit Information Visit Type Treatment Note Visit Start Time 15:15 Visit Stop Time 16:00 Total Visit Minutes 56 Visit Number 1/8 Number of ELECTRICAL PROSPECTOR Visits 0 Evaluation Information Evaluation Date 11/10/19 PT-OP-B Current Condition Start: 11/10/19 12:59 Freq: Status: Active Protocol: Document 11/10/19 17:38 AMH (Rec: 11/10/19 18:01 AMH [id number]) Current Condition History of Current Condition Onset Date CVA in 2013. Falls x3 & hospitalization 06/22/19, and August 2019 Current Complaints dec activitiy tolerance, poor balance, dec amb speed History of Current Condition Pt is a 63 y.o. 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 Pt has been seen at [facility] for PT, OT, ST over the past few years. He was recently hospitalized ( 06/22/19) for 3 falls in the same day. And then again in August 2019. The patient had very low sodium levels at the time One fall occured in the shower and 2 occured getting out of bed. Since recent hospitalization, daughter reports she has seen a decline in his function in dec cognitive processing. Pt has dec stamina with walking, is more unstable on his feet, has been shuffling more and appears to have less coordination. Daughter belives he fell on 06/22/19 was due to pain in his LLE (from RA). Pt reports no sensation on RLE. He has a hx of Rhemuatoid Arthritis, blood clots, depression, diabetes mellitus I, falls, depression, heart attack, pacemaker, neuropathy, and R elbow surgery. Pt amb w a large base quad cane and DF assist AFO. Pt has had multiple falls prior to most recent hospitalization that normally occur with transitional movements like getting out of bed or into a car, prabhu when he is tired. There is an incline and gravel on their driveway which his daughter believes may be contributing to the falls with car transfers. Pt has required 24/7 caregiving since his CVA in 2013, which is provided by his daughter during the daytime and his at nighttime. Prior Treatments and Tests PT, OT, ST. Has seen improvements with PT, but discontinued d/t plateauing of function. Future Testing and Treatments Planned OT and speech at [facility] Treatment Goals Patient/Caregiver Goals To improve walking endurance, balance and to decrease fall risk. Prior Functional Status Baseline Function- ADL's Needs Assist Baseline Function- Mobility Needs Assist Baseline Function- Gait LBQC, AFO Baseline Function- Work/School NA Baseline Function- Recreation/Hobbies Able to ride in car with his daughter to drop of grandchildren at school. Able to amb short distances in the community w/LBQC. Able to use motorized carts at larger stores PT-OP-C Subjective Start: 11/10/19 12:59 Freq: Status: Active Protocol: Document 06/22/20 15:15 DCW (Rec: 06/22/20 16:01 DCW [id number]) OP-PT Subjective Patient Comments Patient Comments Pt indicates he is doing well today. PT-OP-D Balance Start: 11/10/19 18:02 Freq: Status: Active Protocol: Document 06/14/20 16:45 DCW (Rec: 06/14/20 17:14 DCW [id number]) Tinetti Balance Assessment Sitting Balance Sitting Balance Steady, safe Arising from Chair Ability to Arise Able, uses arms to help Attempts to Arise Arises on 1st attempt Standing Balance Immediate Standing Balance Steady w/o support Standing Balance Narrow stance w/o support Nudged Response Steady Standing with Eyes Closed Steady Turning Step Pattern Turning 360 Degrees Discontinuous steps Stability Turning 360 Degrees Steady Sitting Down Sitting Down Uses arms or unsteady Gait and Step Initiation of Gait No hesitancy Right Foot Step Length Does pass stance foot Right Foot Step Height Completely clears floor Left Foot Step Length Does not pass stance foot Left Foot Step Height Completely clears floor Step Description Step Symmetry Step length not equal Step Continuity Stopping or discontinuity Gait Description Path Description Mild/moderate deviation Trunk Description Marked sway or uses aide Walking Stance Heels together Scoring and Interpretation Tinetti Composite Score (points) 19 Interpretation of Scores At risk for falls (19-24) Tinetti Impairment Rating from Composite 20 to <40% Impaired (Score 17- Score 22) PT-OP-E Functional Tests Start: 11/10/19 18:02 Freq: Status: Active Protocol: Document 06/14/20 16:45 DCW (Rec: 06/14/20 17:14 DCW [id number]) Functional Tests 6 Minute Walk Test Distance 380 Device Used large base quad cane Comments 1.06 ft/sec PT-OP-G Mobility & Gait Start: 11/10/19 18:02 Freq: Status: Active Protocol: Document 11/10/19 18:02 AMH (Rec: 11/10/19 18:05 AMH [email or web address]) OP Mobility Evaluation Bed Mobility Rolling able to roll in bed ind Supine to and from Sit able to transfer supine to and from sit ind Transfers Sit to Stand Heavy use of LUE to push up from chair. Pt had some instability with rising from chair. OP Gait Assessment Gait Gait Assistance Required: Standby Assistance Assistive Devices Assistive Device Large Based Quad Cane Orthotic/Prosthetic Devices or Brace: Yes Gait Deviations General Gait Pattern Antalgic,Decreased Stride Length,Decreased Feet Clearance,Narrow Based Gait Factors Limiting Gait Function Factors Limiting Gait Function Decreased Activity Tolerance, Decreased Strength,Poor Balance,Poor Safety Awareness PT-OP-M Strength Start: 11/10/19 18:02 Freq: Status: Active Protocol: Document 01/04/20 13:45 DCW (Rec: 01/04/20 14:12 DCW [id number]) Hip Strength Hip Manual Muscle Testing Right Flexion (L2) 2+ Poor+ Extension (S1) 2 Poor Abduction 2 Poor Adduction 2 Poor External Rotation 2+ Poor+ Internal Rotation 3 Fair Left Flexion (L2) 3+ Fair+ Extension (S1) 3+ Fair+ Abduction 3+ Fair+ Adduction 3+ Fair+ External Rotation 3+ Fair+ Internal Rotation 3+ Fair+ Knee Strength Knee Manual Muscle Testing Right Flexion (S2) 2 Poor Extension (L3) 2+ Poor+ Left Reason Not Measured WFL PT-OP-Q Treatments Start: 11/10/19 18:02 Freq: Status: Active Protocol: Document 06/22/20 15:15 DCW (Rec: 06/22/20 16:01 DCW [id number]) Cardio Equipment Recumbent Elliptical (BiodScaleArc) Duration (Minutes) 5 Resistance 5 Seat Position 9 Gym Equipment Shuttle Recovery Unilateral Squats Details Unilateral Squats Resistance 37# Shuttle Recovery Platform Stable Reps/Time x15 Bilateral Squats Details Bilateral Squats Resistance 62# Shuttle Recovery Platform Stable Reps/Time x20 Shuttle Balance red clips Details Red Comments Wide NATE, Staggered Therapeutic Exercises Standing Exercises 2 Standing Exercise Name Resisted side-stepping, fwd Resistance Green Equipment Used T-band 1 Standing Exercise Name Toe-taps Side bilateral Resistance 5# Equipment Used 6 step Other Exercises hurdles Other Exercise Name Hurdles Resistance 5# Comments Fwd, Lateral PT-OP-T Assessment and Plan Start: 11/10/19 18:02 Freq: Status: Active Protocol: Document 06/22/20 15:15 DCW (Rec: 06/22/20 16:01 DCW [id number]) Physical Therapy Assessment Impairments Impairments Activity Tolerance,Balance, Coordination,Functional Activities,Functional Mobility ,Gait,Pain,Posture,ROM, Sensation,Soft Tissue Mobility ,Strength,Tone,Transfers Goals 4 Explosive Expert Goal (LTG) Pt will be able to perform 10 reps sit to stand with left UE support if needed in 30 sec to improve transition from sit to gait and decrease fall risk by 06/17/2020. 04/18/2020: Pt performs 4 reps sit to stand--1 with left hand support and 3 without UE support in 30 sec. LTG Duration 06/17/2020 Tinnetti Impairment high fall risk Short Term Goal (STG) Pt will improve his ability to turn and step up with gait patterns to decrease fall risk . STG Duration 02/15/20 - improving Half-Way Goal (LTG) Pt will increase Tinnetti score to at least 24/28 in order to decrease fall risk to low. 04/18/2020: Tinetti score is 13 /28. LTG Duration 06/17/2020 6MWT Impairment Pt amb 328 feet during 6MWT Half-Way Goal (LTG) A walking speed of <1.97 can indicate an increased risk of further functional decline. Pt to ambulate >400' during 6 MWT in order to decrease his risk. 04/18/2020: Pt gait trains 218 feet in 6 minutes with QC LTG Duration 06/17/2020 Gait Impairment gait deviations Short Term Goal (STG) Pt will be able to amb for 20 ft with minimal in-toeing of LLE in order to reduce risk of falls. STG Duration 02/15/20 - Improving Explosive Expert Goal (LTG) Pt will be able to amb for 50 ft without leaning onto LBQC for heavy support in order to reduce fall risk. 04/18/2020: Pt with minimal leaning into QC with gait, but has step-to gait d/t paraplegia and so he does lean into it to clear right foot. LTG Duration 06/17/2020 Progress Towards Goals Progress Towards Goals Progressing Toward Goals,Slow Progress due to Medical Issues Assessment Summary Assessment Pt tolerated treatment very well today, no rest extended breaks needed. Physical Therapy Plan Frequency and Duration Frequency of Treatment 2x/Week Duration of Treatment 8 weeks Plan of Care Start Date 06/14/20 Plan of Care End Date 08/09/20 Therapeutic Interventions Therapeutic Interventions Balance Training,Gait Training ,Home Exercise Program, Neuromuscular Re-education, Orthotic/Prosthetic Management ,Patient/Caregiver Education, Self-Care/Home Management, Therapeutic Exercises Next Visit Focus/Plan Next Note Type Treatment Note Next Visit Plan Progress gait and other exercises to improve balance and strength
--- NOTE | 2020-06-27 16:02 | PT.OTN ---
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 (06/27/20) Weakness (06/27/20) Physical Therapy Treatment Note PT-OP-A Visit Information Start: 11/10/19 12:59 Freq: Status: Active Protocol: Document 06/27/20 15:20 DCW (Rec: 06/27/20 16:02 DCW [id number]) Out-Patient Physical Therapy Visit Information Visit Information Visit Type Treatment Note Visit Note 5 min late Visit Start Time 15:20 Visit Stop Time 16:00 Total Visit Minutes 40 Visit Number 2/8 Number of BOAT TESTER Visits 0 Evaluation Information Evaluation Date 11/10/19 PT-OP-B Current Condition Start: 11/10/19 12:59 Freq: Status: Active Protocol: Document 11/10/19 17:38 AMH (Rec: 11/10/19 18:01 AMH [id number]) Current Condition History of Current Condition Onset Date CVA in 2013. Falls x3 & hospitalization 06/22/19, and August 2019 Current Complaints dec activitiy tolerance, poor balance, dec amb speed History of Current Condition Pt is a 63 y.o. 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 Pt has been seen at [facility] for PT, OT, ST over the past few years. He was recently hospitalized ( 06/22/19) for 3 falls in the same day. And then again in August 2019. The patient had very low sodium levels at the time One fall occured in the shower and 2 occured getting out of bed. Since recent hospitalization, daughter reports she has seen a decline in his function in dec cognitive processing. Pt has dec stamina with walking, is more unstable on his feet, has been shuffling more and appears to have less coordination. Daughter saraives he fell on 06/22/19 was due to pain in his LLE (from RA). Pt reports no sensation on RLE. He has a hx of Rhemuatoid Arthritis, blood clots, depression, diabetes mellitus I, falls, depression, heart attack, pacemaker, neuropathy, and R elbow surgery. Pt amb w a large base quad cane and DF assist AFO. Pt has had multiple falls prior to most recent hospitalization that normally occur with transitional movements like getting out of bed or into a car, prabhu when he is tired. There is an incline and gravel on their driveway which his daughter believes may be contributing to the falls with car transfers. Pt has required 24/7 caregiving since his CVA in 2013, which is provided by his daughter during the daytime and his at nighttime. Prior Treatments and Tests PT, OT, ST. Has seen improvements with PT, but discontinued d/t plateauing of function. Future Testing and Treatments Planned OT and speech at [facility] Treatment Goals Patient/Caregiver Goals To improve walking endurance, balance and to decrease fall risk. Prior Functional Status Baseline Function- ADL's Needs Assist Baseline Function- Mobility Needs Assist Baseline Function- Gait LBQC, AFO Baseline Function- Work/School NA Baseline Function- Recreation/Hobbies Able to ride in car with his daughter to drop of grandchildren at school. Able to amb short distances in the community w/LBQC. Able to use motorized carts at larger stores PT-OP-C Subjective Start: 11/10/19 12:59 Freq: Status: Active Protocol: Document 06/27/20 15:20 DCW (Rec: 06/27/20 16:02 DCW [id number]) OP-PT Subjective Patient Comments Patient Comments Pt indicates he is doing well, appears to be attempting more verbalization today. PT-OP-D Balance Start: 11/10/19 18:02 Freq: Status: Active Protocol: Document 06/14/20 16:45 DCW (Rec: 06/14/20 17:14 DCW [id number]) Tinetti Balance Assessment Sitting Balance Sitting Balance Steady, safe Arising from Chair Ability to Arise Able, uses arms to help Attempts to Arise Arises on 1st attempt Standing Balance Immediate Standing Balance Steady w/o support Standing Balance Narrow stance w/o support Nudged Response Steady Standing with Eyes Closed Steady Turning Step Pattern Turning 360 Degrees Discontinuous steps Stability Turning 360 Degrees Steady Sitting Down Sitting Down Uses arms or unsteady Gait and Step Initiation of Gait No hesitancy Right Foot Step Length Does pass stance foot Right Foot Step Height Completely clears floor Left Foot Step Length Does not pass stance foot Left Foot Step Height Completely clears floor Step Description Step Symmetry Step length not equal Step Continuity Stopping or discontinuity Gait Description Path Description Mild/moderate deviation Trunk Description Marked sway or uses aide Walking Stance Heels together Scoring and Interpretation Tinetti Composite Score (points) 19 Interpretation of Scores At risk for falls (19-24) Tinetti Impairment Rating from Composite 20 to <40% Impaired (Score 17- Score 22) PT-OP-E Functional Tests Start: 11/10/19 18:02 Freq: Status: Active Protocol: Document 06/14/20 16:45 DCW (Rec: 06/14/20 17:14 DCW [id number]) Functional Tests 6 Minute Walk Test Distance 380 Device Used large base quad cane Comments 1.06 ft/sec PT-OP-G Mobility & Gait Start: 11/10/19 18:02 Freq: Status: Active Protocol: Document 11/10/19 18:02 AMH (Rec: 11/10/19 18:05 AMH [email or web address]) OP Mobility Evaluation Bed Mobility Rolling able to roll in bed ind Supine to and from Sit able to transfer supine to and from sit ind Transfers Sit to Stand Heavy use of LUE to push up from chair. Pt had some instability with rising from chair. OP Gait Assessment Gait Gait Assistance Required: Standby Assistance Assistive Devices Assistive Device Large Based Quad Cane Orthotic/Prosthetic Devices or Brace: Yes Gait Deviations General Gait Pattern Antalgic,Decreased Stride Length,Decreased Feet Clearance,Narrow Based Gait Factors Limiting Gait Function Factors Limiting Gait Function Decreased Activity Tolerance, Decreased Strength,Poor Balance,Poor Safety Awareness PT-OP-M Strength Start: 11/10/19 18:02 Freq: Status: Active Protocol: Document 01/04/20 13:45 DCW (Rec: 01/04/20 14:12 DCW [id number]) Hip Strength Hip Manual Muscle Testing Right Flexion (L2) 2+ Poor+ Extension (S1) 2 Poor Abduction 2 Poor Adduction 2 Poor External Rotation 2+ Poor+ Internal Rotation 3 Fair Left Flexion (L2) 3+ Fair+ Extension (S1) 3+ Fair+ Abduction 3+ Fair+ Adduction 3+ Fair+ External Rotation 3+ Fair+ Internal Rotation 3+ Fair+ Knee Strength Knee Manual Muscle Testing Right Flexion (S2) 2 Poor Extension (L3) 2+ Poor+ Left Reason Not Measured WFL PT-OP-Q Treatments Start: 11/10/19 18:02 Freq: Status: Active Protocol: Document 06/27/20 15:20 DCW (Rec: 06/27/20 16:02 DCW [id number]) Cardio Equipment Recumbent Elliptical (ROI²) Duration (Minutes) 5 Resistance 5 Seat Position 9 Gym Equipment Shuttle Recovery Unilateral Squats Details Unilateral Squats Resistance 37# Shuttle Recovery Platform Stable Reps/Time x15 Bilateral Squats Details Bilateral Squats Resistance 62# Shuttle Recovery Platform Stable Reps/Time x20 Shuttle Balance red clips Details Red Comments Wide NATE, Staggered Therapeutic Exercises Standing Exercises 2 Standing Exercise Name Resisted side-stepping, fwd Resistance Green Equipment Used T-band Other Exercises hurdles Other Exercise Name Hurdles Resistance 5# Comments Fwd, Lateral PT-OP-T Assessment and Plan Start: 11/10/19 18:02 Freq: Status: Active Protocol: Document 06/27/20 15:20 DCW (Rec: 06/27/20 16:02 DCW [id number]) Physical Therapy Assessment Impairments Impairments Activity Tolerance,Balance, Coordination,Functional Activities,Functional Mobility ,Gait,Pain,Posture,ROM, Sensation,Soft Tissue Mobility ,Strength,Tone,Transfers Goals 4 Jail Goal (LTG) Pt will be able to perform 10 reps sit to stand with left UE support if needed in 30 sec to improve transition from sit to gait and decrease fall risk by 06/17/2020. 04/18/2020: Pt performs 4 reps sit to stand--1 with left hand support and 3 without UE support in 30 sec. LTG Duration 06/17/2020 Tinnetti Impairment high fall risk Short Term Goal (STG) Pt will improve his ability to turn and step up with gait patterns to decrease fall risk . STG Duration 02/15/20 - improving Carpenter Goal (LTG) Pt will increase Tinnetti score to at least 24/28 in order to decrease fall risk to low. 04/18/2020: Tinetti score is 13 /28. LTG Duration 06/17/2020 6MWT Impairment Pt amb 328 feet during 6MWT Jail Goal (LTG) A walking speed of <1.97 can indicate an increased risk of further functional decline. Pt to ambulate >400' during 6 MWT in order to decrease his risk. 04/18/2020: Pt gait trains 218 feet in 6 minutes with QC LTG Duration 06/17/2020 Gait Impairment gait deviations Short Term Goal (STG) Pt will be able to amb for 20 ft with minimal in-toeing of LLE in order to reduce risk of falls. STG Duration 02/15/20 - Improving Carpenter Goal (LTG) Pt will be able to amb for 50 ft without leaning onto LBQC for heavy support in order to reduce fall risk. 04/18/2020: Pt with minimal leaning into QC with gait, but has step-to gait d/t paraplegia and so he does lean into it to clear right foot. LTG Duration 06/17/2020 Progress Towards Goals Progress Towards Goals Progressing Toward Goals,Slow Progress due to Medical Issues Assessment Summary Assessment Pt did well today, one limited rest break for water. Appears to be progressing with LE strength Physical Therapy Plan Frequency and Duration Frequency of Treatment 2x/Week Duration of Treatment 8 weeks Plan of Care Start Date 06/14/20 Plan of Care End Date 08/09/20 Therapeutic Interventions Therapeutic Interventions Balance Training,Gait Training ,Home Exercise Program, Neuromuscular Re-education, Orthotic/Prosthetic Management ,Patient/Caregiver Education, Self-Care/Home Management, Therapeutic Exercises Next Visit Focus/Plan Next Note Type Treatment Note Next Visit Plan Progress gait and other exercises to improve balance and strength
--- NOTE | 2020-06-29 16:01 | PT.OTN ---
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 (06/29/20) Weakness (06/29/20) Physical Therapy Treatment Note PT-OP-A Visit Information Start: 11/10/19 12:59 Freq: Status: Active Protocol: Document 06/29/20 15:15 DCW (Rec: 06/29/20 16:01 DCW [id number]) Out-Patient Physical Therapy Visit Information Visit Information Visit Type Treatment Note Visit Start Time 15:15 Visit Stop Time 16:00 Total Visit Minutes 56 Visit Number 3/8 Number of IRON PLASTIC BULLET MAKER Visits 0 Evaluation Information Evaluation Date 11/10/19 PT-OP-B Current Condition Start: 11/10/19 12:59 Freq: Status: Active Protocol: Document 11/10/19 17:38 AMH (Rec: 11/10/19 18:01 AMH [email or web address]) Current Condition History of Current Condition Onset Date CVA in 2013. Falls x3 & hospitalization 06/22/19, and August 2019 Current Complaints dec activitiy tolerance, poor balance, dec amb speed History of Current Condition Pt is a 63 y.o. 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 Pt has been seen at [facility] for PT, OT, ST over the past few years. He was recently hospitalized ( 06/22/19) for 3 falls in the same day. And then again in August 2019. The patient had very low sodium levels at the time One fall occured in the shower and 2 occured getting out of bed. Since recent hospitalization, daughter reports she has seen a decline in his function in dec cognitive processing. Pt has dec stamina with walking, is more unstable on his feet, has been shuffling more and appears to have less coordination. Daughter belives he fell on 06/22/19 was due to pain in his LLE (from RA). Pt reports no sensation on RLE. He has a hx of Rhemuatoid Arthritis, blood clots, depression, diabetes mellitus I, falls, depression, heart attack, pacemaker, neuropathy, and R elbow surgery. Pt amb w a large base quad cane and DF assist AFO. Pt has had multiple falls prior to most recent hospitalization that normally occur with transitional movements like getting out of bed or into a car, prabhu when he is tired. There is an incline and gravel on their driveway which his daughter believes may be contributing to the falls with car transfers. Pt has required 24/7 caregiving since his CVA in 2013, which is provided by his daughter during the daytime and his at nighttime. Prior Treatments and Tests PT, OT, ST. Has seen improvements with PT, but discontinued d/t plateauing of function. Future Testing and Treatments Planned OT and speech at [facility] Treatment Goals Patient/Caregiver Goals To improve walking endurance, balance and to decrease fall risk. Prior Functional Status Baseline Function- ADL's Needs Assist Baseline Function- Mobility Needs Assist Baseline Function- Gait LBQC, AFO Baseline Function- Work/School NA Baseline Function- Recreation/Hobbies Able to ride in car with his daughter to drop of grandchildren at school. Able to amb short distances in the community w/LBQC. Able to use motorized carts at larger stores PT-OP-C Subjective Start: 11/10/19 12:59 Freq: Status: Active Protocol: Document 06/29/20 15:15 DCW (Rec: 06/29/20 16:01 DCW [id number]) OP-PT Subjective Patient Comments Patient Comments Pt indicates he is doing well today. PT-OP-D Balance Start: 11/10/19 18:02 Freq: Status: Active Protocol: Document 06/14/20 16:45 DCW (Rec: 06/14/20 17:14 DCW [id number]) Tinetti Balance Assessment Sitting Balance Sitting Balance Steady, safe Arising from Chair Ability to Arise Able, uses arms to help Attempts to Arise Arises on 1st attempt Standing Balance Immediate Standing Balance Steady w/o support Standing Balance Narrow stance w/o support Nudged Response Steady Standing with Eyes Closed Steady Turning Step Pattern Turning 360 Degrees Discontinuous steps Stability Turning 360 Degrees Steady Sitting Down Sitting Down Uses arms or unsteady Gait and Step Initiation of Gait No hesitancy Right Foot Step Length Does pass stance foot Right Foot Step Height Completely clears floor Left Foot Step Length Does not pass stance foot Left Foot Step Height Completely clears floor Step Description Step Symmetry Step length not equal Step Continuity Stopping or discontinuity Gait Description Path Description Mild/moderate deviation Trunk Description Marked sway or uses aide Walking Stance Heels together Scoring and Interpretation Tinetti Composite Score (points) 19 Interpretation of Scores At risk for falls (19-24) Tinetti Impairment Rating from Composite 20 to <40% Impaired (Score 17- Score 22) PT-OP-E Functional Tests Start: 11/10/19 18:02 Freq: Status: Active Protocol: Document 06/14/20 16:45 DCW (Rec: 06/14/20 17:14 DCW [id number]) Functional Tests 6 Minute Walk Test Distance 380 Device Used large base quad cane Comments 1.06 ft/sec PT-OP-G Mobility & Gait Start: 11/10/19 18:02 Freq: Status: Active Protocol: Document 11/10/19 18:02 AMH (Rec: 11/10/19 18:05 AMH [email or web address]) OP Mobility Evaluation Bed Mobility Rolling able to roll in bed ind Supine to and from Sit able to transfer supine to and from sit ind Transfers Sit to Stand Heavy use of LUE to push up from chair. Pt had some instability with rising from chair. OP Gait Assessment Gait Gait Assistance Required: Standby Assistance Assistive Devices Assistive Device Large Based Quad Cane Orthotic/Prosthetic Devices or Brace: Yes Gait Deviations General Gait Pattern Antalgic,Decreased Stride Length,Decreased Feet Clearance,Narrow Based Gait Factors Limiting Gait Function Factors Limiting Gait Function Decreased Activity Tolerance, Decreased Strength,Poor Balance,Poor Safety Awareness PT-OP-M Strength Start: 11/10/19 18:02 Freq: Status: Active Protocol: Document 01/04/20 13:45 DCW (Rec: 01/04/20 14:12 DCW [id number]) Hip Strength Hip Manual Muscle Testing Right Flexion (L2) 2+ Poor+ Extension (S1) 2 Poor Abduction 2 Poor Adduction 2 Poor External Rotation 2+ Poor+ Internal Rotation 3 Fair Left Flexion (L2) 3+ Fair+ Extension (S1) 3+ Fair+ Abduction 3+ Fair+ Adduction 3+ Fair+ External Rotation 3+ Fair+ Internal Rotation 3+ Fair+ Knee Strength Knee Manual Muscle Testing Right Flexion (S2) 2 Poor Extension (L3) 2+ Poor+ Left Reason Not Measured WFL PT-OP-Q Treatments Start: 11/10/19 18:02 Freq: Status: Active Protocol: Document 06/29/20 15:15 DCW (Rec: 06/29/20 16:01 DCW [id number]) Cardio Equipment Recumbent Elliptical ([employer]) Duration (Minutes) 5 Resistance 6 Seat Position 9 Gym Equipment Shuttle Recovery Unilateral Squats Details Unilateral Squats Resistance 37# Shuttle Recovery Platform Stable Reps/Time x15 Bilateral Squats Details Bilateral Squats Resistance 62# Shuttle Recovery Platform Stable Reps/Time x20 Shuttle Balance red clips Details Red Comments Wide NATE, Staggered Therapeutic Exercises Standing Exercises 2 Standing Exercise Name Resisted side-stepping, fwd Resistance Green Equipment Used T-band 1 Standing Exercise Name Toe-taps Side bilateral Resistance 5# Equipment Used 6 step Other Exercises hurdles Other Exercise Name Hurdles Resistance 5# Comments Fwd, Lateral PT-OP-T Assessment and Plan Start: 11/10/19 18:02 Freq: Status: Active Protocol: Document 06/29/20 15:15 DCW (Rec: 06/29/20 16:01 DCW [id number]) Physical Therapy Assessment Impairments Impairments Activity Tolerance,Balance, Coordination,Functional Activities,Functional Mobility ,Gait,Pain,Posture,ROM, Sensation,Soft Tissue Mobility ,Strength,Tone,Transfers Goals 4 Calendar Control Clerk Blood Bank Goal (LTG) Pt will be able to perform 10 reps sit to stand with left UE support if needed in 30 sec to improve transition from sit to gait and decrease fall risk by 06/17/2020. 04/18/2020: Pt performs 4 reps sit to stand--1 with left hand support and 3 without UE support in 30 sec. LTG Duration 06/17/2020 Tinnetti Impairment high fall risk Short Term Goal (STG) Pt will improve his ability to turn and step up with gait patterns to decrease fall risk . STG Duration 02/15/20 - improving Custodial Goal (LTG) Pt will increase Tinnetti score to at least 24/28 in order to decrease fall risk to low. 04/18/2020: Tinetti score is 13 /28. LTG Duration 06/17/2020 6MWT Impairment Pt amb 328 feet during 6MWT Custodial Goal (LTG) A walking speed of <1.97 can indicate an increased risk of further functional decline. Pt to ambulate >400' during 6 MWT in order to decrease his risk. 04/18/2020: Pt gait trains 218 feet in 6 minutes with QC LTG Duration 06/17/2020 Gait Impairment gait deviations Short Term Goal (STG) Pt will be able to amb for 20 ft with minimal in-toeing of LLE in order to reduce risk of falls. STG Duration 02/15/20 - Improving Calendar Control Clerk Blood Bank Goal (LTG) Pt will be able to amb for 50 ft without leaning onto LBQC for heavy support in order to reduce fall risk. 04/18/2020: Pt with minimal leaning into QC with gait, but has step-to gait d/t paraplegia and so he does lean into it to clear right foot. LTG Duration 06/17/2020 Progress Towards Goals Progress Towards Goals Progressing Toward Goals,Slow Progress due to Medical Issues Assessment Summary Assessment Pt tolerating increased activity levels recently, fewer complaints about resistance. Physical Therapy Plan Frequency and Duration Frequency of Treatment 2x/Week Duration of Treatment 8 weeks Plan of Care Start Date 06/14/20 Plan of Care End Date 08/09/20 Therapeutic Interventions Therapeutic Interventions Balance Training,Gait Training ,Home Exercise Program, Neuromuscular Re-education, Orthotic/Prosthetic Management ,Patient/Caregiver Education, Self-Care/Home Management, Therapeutic Exercises Next Visit Focus/Plan Next Note Type Treatment Note Next Visit Plan Progress gait and other exercises to improve balance and strength
--- NOTE | 2020-07-04 16:45 | PT.OTN ---
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 (07/04/20) Weakness (07/04/20) Physical Therapy Treatment Note PT-OP-A Visit Information Start: 11/10/19 12:59 Freq: Status: Active Protocol: Document 07/04/20 16:00 DCW (Rec: 07/04/20 16:45 DCW [id number]) Out-Patient Physical Therapy Visit Information Visit Information Visit Type Treatment Note Visit Start Time 16:00 Visit Stop Time 16:45 Total Visit Minutes 45 Visit Number 4/8 Number of CUSHION PADDER Visits 0 Evaluation Information Evaluation Date 11/10/19 PT-OP-B Current Condition Start: 11/10/19 12:59 Freq: Status: Active Protocol: Document 11/10/19 17:38 AMH (Rec: 11/10/19 18:01 AMH [id number]) Current Condition History of Current Condition Onset Date CVA in 2013. Falls x3 & hospitalization 06/22/19, and August 2019 Current Complaints dec activitiy tolerance, poor balance, dec amb speed History of Current Condition Pt is a 63 y.o. 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 Pt has been seen at [facility] OP for PT, OT, ST over the past few years. He was recently hospitalized ( 06/22/19) for 3 falls in the same day. And then again in August 2019. The patient had very low sodium levels at the time One fall occured in the shower and 2 occured getting out of bed. Since recent hospitalization, daughter reports she has seen a decline in his function in dec cognitive processing. Pt has dec stamina with walking, is more unstable on his feet, has been shuffling more and appears to have less coordination. Daughter belives he fell on 06/22/19 was due to pain in his LLE (from RA). Pt reports no sensation on RLE. He has a hx of Rhemuatoid Arthritis, blood clots, depression, diabetes mellitus I, falls, depression, heart attack, pacemaker, neuropathy, and R elbow surgery. Pt amb w a large base quad cane and DF assist AFO. Pt has had multiple falls prior to most recent hospitalization that normally occur with transitional movements like getting out of bed or into a car, prabhu when he is tired. There is an incline and gravel on their driveway which his daughter believes may be contributing to the falls with car transfers. Pt has required 24/7 caregiving since his CVA in 2013, which is provided by his daughter during the daytime and his at nighttime. Prior Treatments and Tests PT, OT, ST. Has seen improvements with PT, but discontinued d/t plateauing of function. Future Testing and Treatments Planned OT and speech at [facility] Treatment Goals Patient/Caregiver Goals To improve walking endurance, balance and to decrease fall risk. Prior Functional Status Baseline Function- ADL's Needs Assist Baseline Function- Mobility Needs Assist Baseline Function- Gait LBQC, AFO Baseline Function- Work/School NA Baseline Function- Recreation/Hobbies Able to ride in car with his daughter to drop of grandchildren at school. Able to amb short distances in the community w/LBQC. Able to use motorized carts at larger stores PT-OP-C Subjective Start: 11/10/19 12:59 Freq: Status: Active Protocol: Document 07/04/20 16:00 DCW (Rec: 07/04/20 16:45 DCW [id number]) OP-PT Subjective Patient Comments Patient Comments Pt indicates he is doing well today. PT-OP-D Balance Start: 11/10/19 18:02 Freq: Status: Active Protocol: Document 06/14/20 16:45 DCW (Rec: 06/14/20 17:14 DCW [id number]) Tinetti Balance Assessment Sitting Balance Sitting Balance Steady, safe Arising from Chair Ability to Arise Able, uses arms to help Attempts to Arise Arises on 1st attempt Standing Balance Immediate Standing Balance Steady w/o support Standing Balance Narrow stance w/o support Nudged Response Steady Standing with Eyes Closed Steady Turning Step Pattern Turning 360 Degrees Discontinuous steps Stability Turning 360 Degrees Steady Sitting Down Sitting Down Uses arms or unsteady Gait and Step Initiation of Gait No hesitancy Right Foot Step Length Does pass stance foot Right Foot Step Height Completely clears floor Left Foot Step Length Does not pass stance foot Left Foot Step Height Completely clears floor Step Description Step Symmetry Step length not equal Step Continuity Stopping or discontinuity Gait Description Path Description Mild/moderate deviation Trunk Description Marked sway or uses aide Walking Stance Heels together Scoring and Interpretation Tinetti Composite Score (points) 19 Interpretation of Scores At risk for falls (19-24) Tinetti Impairment Rating from Composite 20 to <40% Impaired (Score 17- Score 22) PT-OP-E Functional Tests Start: 11/10/19 18:02 Freq: Status: Active Protocol: Document 06/14/20 16:45 DCW (Rec: 06/14/20 17:14 DCW [id number]) Functional Tests 6 Minute Walk Test Distance 380 Device Used large base quad cane Comments 1.06 ft/sec PT-OP-G Mobility & Gait Start: 11/10/19 18:02 Freq: Status: Active Protocol: Document 11/10/19 18:02 AMH (Rec: 11/10/19 18:05 AMH [email or web address]) OP Mobility Evaluation Bed Mobility Rolling able to roll in bed ind Supine to and from Sit able to transfer supine to and from sit ind Transfers Sit to Stand Heavy use of LUE to push up from chair. Pt had some instability with rising from chair. OP Gait Assessment Gait Gait Assistance Required: Standby Assistance Assistive Devices Assistive Device Large Based Quad Cane Orthotic/Prosthetic Devices or Brace: Yes Gait Deviations General Gait Pattern Antalgic,Decreased Stride Length,Decreased Feet Clearance,Narrow Based Gait Factors Limiting Gait Function Factors Limiting Gait Function Decreased Activity Tolerance, Decreased Strength,Poor Balance,Poor Safety Awareness PT-OP-M Strength Start: 11/10/19 18:02 Freq: Status: Active Protocol: Document 01/04/20 13:45 DCW (Rec: 01/04/20 14:12 DCW [id number]) Hip Strength Hip Manual Muscle Testing Right Flexion (L2) 2+ Poor+ Extension (S1) 2 Poor Abduction 2 Poor Adduction 2 Poor External Rotation 2+ Poor+ Internal Rotation 3 Fair Left Flexion (L2) 3+ Fair+ Extension (S1) 3+ Fair+ Abduction 3+ Fair+ Adduction 3+ Fair+ External Rotation 3+ Fair+ Internal Rotation 3+ Fair+ Knee Strength Knee Manual Muscle Testing Right Flexion (S2) 2 Poor Extension (L3) 2+ Poor+ Left Reason Not Measured WFL PT-OP-Q Treatments Start: 11/10/19 18:02 Freq: Status: Active Protocol: Document 07/04/20 16:00 DCW (Rec: 07/04/20 16:45 DCW [id number]) Cardio Equipment Recumbent Elliptical ([employer]) Duration (Minutes) 5 Resistance 6 Seat Position 9 Gym Equipment Shuttle Recovery Unilateral Squats Details Unilateral Squats Resistance 37# Shuttle Recovery Platform Stable Reps/Time x15 Bilateral Squats Details Bilateral Squats Resistance 62# Shuttle Recovery Platform Stable Reps/Time x20 Shuttle Balance red clips Details Red Comments Wide NATE, Staggered Therapeutic Exercises Standing Exercises 4 Standing Exercise Name Step ups Side right Equipment Used 6 step 2 Standing Exercise Name Resisted side-stepping, fwd Resistance Green Equipment Used T-band 1 Standing Exercise Name Toe-taps Side bilateral Resistance 5# Equipment Used 6 step Neuro Re-Education Treatment Balance Activities SLS Details SLS Surface firm PT-OP-T Assessment and Plan Start: 11/10/19 18:02 Freq: Status: Active Protocol: Document 07/04/20 16:00 DCW (Rec: 07/04/20 16:45 DCW [id number]) Physical Therapy Assessment Impairments Impairments Activity Tolerance,Balance, Coordination,Functional Activities,Functional Mobility ,Gait,Pain,Posture,ROM, Sensation,Soft Tissue Mobility ,Strength,Tone,Transfers Goals 4 Metal Drill Press Operator Goal (LTG) Pt will be able to perform 10 reps sit to stand with left UE support if needed in 30 sec to improve transition from sit to gait and decrease fall risk by 06/17/2020. 04/18/2020: Pt performs 4 reps sit to stand--1 with left hand support and 3 without UE support in 30 sec. LTG Duration 06/17/2020 Tinnetti Impairment high fall risk Short Term Goal (STG) Pt will improve his ability to turn and step up with gait patterns to decrease fall risk . STG Duration 02/15/20 - improving Half-Way Goal (LTG) Pt will increase Tinnetti score to at least 24/28 in order to decrease fall risk to low. 04/18/2020: Tinetti score is 13 /28. LTG Duration 06/17/2020 6MWT Impairment Pt amb 328 feet during 6MWT Half-Way Goal (LTG) A walking speed of <1.97 can indicate an increased risk of further functional decline. Pt to ambulate >400' during 6 MWT in order to decrease his risk. 04/18/2020: Pt gait trains 218 feet in 6 minutes with QC LTG Duration 06/17/2020 Gait Impairment gait deviations Short Term Goal (STG) Pt will be able to amb for 20 ft with minimal in-toeing of LLE in order to reduce risk of falls. STG Duration 02/15/20 - Improving Half-Way Goal (LTG) Pt will be able to amb for 50 ft without leaning onto LBQC for heavy support in order to reduce fall risk. 04/18/2020: Pt with minimal leaning into QC with gait, but has step-to gait d/t paraplegia and so he does lean into it to clear right foot. LTG Duration 06/17/2020 Progress Towards Goals Progress Towards Goals Progressing Toward Goals,Slow Progress due to Medical Issues Assessment Summary Assessment Pt did well today, no concerns or imbalance today. Pt had good LE control today. Physical Therapy Plan Frequency and Duration Frequency of Treatment 2x/Week Duration of Treatment 8 weeks Plan of Care Start Date 06/14/20 Plan of Care End Date 08/09/20 Therapeutic Interventions Therapeutic Interventions Balance Training,Gait Training ,Home Exercise Program, Neuromuscular Re-education, Orthotic/Prosthetic Management ,Patient/Caregiver Education, Self-Care/Home Management, Therapeutic Exercises Next Visit Focus/Plan Next Note Type Treatment Note Next Visit Plan Progress gait and other exercises to improve balance and strength
--- NOTE | 2020-08-03 15:18 | PT.OTN ---
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 (08/03/20) Weakness (08/03/20) Physical Therapy Treatment Note PT-OP-A Visit Information Start: 11/10/19 12:59 Freq: Status: Active Protocol: Document 08/03/20 14:30 DCW (Rec: 08/03/20 15:18 DCW [id number]) Out-Patient Physical Therapy Visit Information Visit Information Visit Type Treatment Note Visit Start Time 14:30 Visit Stop Time 15:15 Total Visit Minutes 45 Visit Number 5/8 Number of RETAIL AND PROMOTIONS COORDINATOR Visits 0 Evaluation Information Evaluation Date 11/10/19 PT-OP-B Current Condition Start: 11/10/19 12:59 Freq: Status: Active Protocol: Document 11/10/19 17:38 AMH (Rec: 11/10/19 18:01 AMH [id number]) Current Condition History of Current Condition Onset Date CVA in 2013. Falls x3 & hospitalization 06/22/19, and August 2019 Current Complaints dec activitiy tolerance, poor balance, dec amb speed History of Current Condition Pt is a 63 y.o. 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 Pt has been seen at [facility] for PT, OT, ST over the past few years. He was recently hospitalized ( 06/22/19) for 3 falls in the same day. And then again in August 2019. The patient had very low sodium levels at the time One fall occured in the shower and 2 occured getting out of bed. Since recent hospitalization, daughter reports she has seen a decline in his function in dec cognitive processing. Pt has dec stamina with walking, is more unstable on his feet, has been shuffling more and appears to have less coordination. Daughter belives he fell on 06/22/19 was due to pain in his LLE (from RA). Pt reports no sensation on RLE. He has a hx of Rhemuatoid Arthritis, blood clots, depression, diabetes mellitus I, falls, depression, heart attack, pacemaker, neuropathy, and R elbow surgery. Pt amb w a large base quad cane and DF assist AFO. Pt has had multiple falls prior to most recent hospitalization that normally occur with transitional movements like getting out of bed or into a car, prabhu when he is tired. There is an incline and gravel on their driveway which his daughter believes may be contributing to the falls with car transfers. Pt has required 24/7 caregiving since his CVA in 2013, which is provided by his daughter during the daytime and his at nighttime. Prior Treatments and Tests PT, OT, ST. Has seen improvements with PT, but discontinued d/t plateauing of function. Future Testing and Treatments Planned OT and speech at [facility] Treatment Goals Patient/Caregiver Goals To improve walking endurance, balance and to decrease fall risk. Prior Functional Status Baseline Function- ADL's Needs Assist Baseline Function- Mobility Needs Assist Baseline Function- Gait LBQC, AFO Baseline Function- Work/School NA Baseline Function- Recreation/Hobbies Able to ride in car with his daughter to drop of grandchildren at school. Able to amb short distances in the community w/LBQC. Able to use motorized carts at larger stores PT-OP-C Subjective Start: 11/10/19 12:59 Freq: Status: Active Protocol: Document 08/03/20 14:30 DCW (Rec: 08/03/20 15:18 DCW [id number]) OP-PT Subjective Patient Comments Patient Comments Pt doing well today PT-OP-D Balance Start: 11/10/19 18:02 Freq: Status: Active Protocol: Document 08/03/20 14:30 DCW (Rec: 08/03/20 15:00 DCW [id number]) Tinetti Balance Assessment Sitting Balance Sitting Balance Steady, safe Arising from Chair Ability to Arise Able, uses arms to help Attempts to Arise Arises on 1st attempt Standing Balance Immediate Standing Balance Steady w/o support Standing Balance Narrow stance w/o support Nudged Response Steady Standing with Eyes Closed Steady Turning Step Pattern Turning 360 Degrees Discontinuous steps Stability Turning 360 Degrees Unsteady, grabs/staggers Sitting Down Sitting Down Uses arms or unsteady Gait and Step Initiation of Gait No hesitancy Right Foot Step Length Does pass stance foot Right Foot Step Height Completely clears floor Left Foot Step Length Does not pass stance foot Left Foot Step Height Completely clears floor Step Description Step Symmetry Step length not equal Step Continuity Stopping or discontinuity Gait Description Path Description Mild/moderate deviation Trunk Description Marked sway or uses aide Walking Stance Heels together Scoring and Interpretation Tinetti Composite Score (points) 18 Interpretation of Scores High risk for falls(< 19) Tinetti Impairment Rating from Composite 20 to <40% Impaired (Score 17- Score 22) PT-OP-E Functional Tests Start: 11/10/19 18:02 Freq: Status: Active Protocol: Document 08/03/20 14:30 DCW (Rec: 08/03/20 15:00 DCW [id number]) Functional Tests 6 Minute Walk Test Distance 385 Device Used large base quad cane Comments 1.07 ft/sec Timed Up and Go (TUG) Score 30.5 sec /c LBQC Comments 3-trial average (32.13, 31.08, 28.29) TUG Impairment Rating 100% Impaired (Score 20) PT-OP-G Mobility & Gait Start: 11/10/19 18:02 Freq: Status: Active Protocol: Document 11/10/19 18:02 AMH (Rec: 11/10/19 18:05 AMH [email or web address]) OP Mobility Evaluation Bed Mobility Rolling able to roll in bed ind Supine to and from Sit able to transfer supine to and from sit ind Transfers Sit to Stand Heavy use of LUE to push up from chair. Pt had some instability with rising from chair. OP Gait Assessment Gait Gait Assistance Required: Standby Assistance Assistive Devices Assistive Device Large Based Quad Cane Orthotic/Prosthetic Devices or Brace: Yes Gait Deviations General Gait Pattern Antalgic,Decreased Stride Length,Decreased Feet Clearance,Narrow Based Gait Factors Limiting Gait Function Factors Limiting Gait Function Decreased Activity Tolerance, Decreased Strength,Poor Balance,Poor Safety Awareness PT-OP-M Strength Start: 11/10/19 18:02 Freq: Status: Active Protocol: Document 08/03/20 14:30 DCW (Rec: 08/03/20 15:00 DCW [id number]) Hip Strength Hip Manual Muscle Testing Right Flexion (L2) 3- Fair- Extension (S1) 2+ Poor+ Abduction 2 Poor Adduction 2+ Poor+ External Rotation 2 Poor Internal Rotation 2 Poor Left Flexion (L2) 3+ Fair+ Extension (S1) 4 Good Abduction 3+ Fair+ Adduction 4- Good- External Rotation 4 Good Internal Rotation 4 Good Knee Strength Knee Manual Muscle Testing Right Flexion (S2) 2 Poor Extension (L3) 3- Fair- PT-OP-Q Treatments Start: 11/10/19 18:02 Freq: Status: Active Protocol: Document 08/03/20 14:30 DCW (Rec: 08/03/20 15:18 DCW [id number]) Cardio Equipment Recumbent Elliptical (Biodex) Duration (Minutes) 5 Resistance 6 Seat Position 9 Gym Equipment Shuttle Balance blue clips Comments WBOS, EO/EC, vs Perturbations Neuro Re-Education Treatment Other Activities Tinetti standing balance exercises Comments 6 MWT, Tinetti, TUG, MMT PT-OP-T Assessment and Plan Start: 11/10/19 18:02 Freq: Status: Active Protocol: Document 08/03/20 14:30 DCW (Rec: 08/03/20 15:18 DCW [id number]) Physical Therapy Assessment Impairments Impairments Activity Tolerance,Balance, Coordination,Functional Activities,Functional Mobility ,Gait,Pain,Posture,ROM, Sensation,Soft Tissue Mobility ,Strength,Tone,Transfers Goals 4 Lean Manager Goal (LTG) Pt will be able to perform 10 reps sit to stand with left UE support if needed in 30 sec to improve transition from sit to gait and decrease fall risk by 06/17/2020. 04/18/2020: Pt performs 4 reps sit to stand--1 with left hand support and 3 without UE support in 30 sec. LTG Duration 10/03/20 Tinnetti Impairment high fall risk Short Term Goal (STG) Pt will improve his ability to turn and step up with gait patterns to decrease fall risk . STG Duration Met Long-Term Goal (LTG) Pt will increase Tinnetti score to at least 24/28 in order to decrease fall risk to low. 04/18/2020: Tinetti score is 13 /28. LTG Duration 10/03/20 6MWT Impairment Pt amb 328 feet during 6MWT Lean Manager Goal (LTG) A walking speed of <1.97 can indicate an increased risk of further functional decline. Pt to ambulate >400' during 6 MWT in order to decrease his risk. 04/18/2020: Pt gait trains 218 feet in 6 minutes with QC LTG Duration 10/03/20 - Improving (385') Gait Impairment gait deviations Short Term Goal (STG) Pt will be able to amb for 20 ft with minimal in-toeing of LLE in order to reduce risk of falls. STG Duration Met Long-Term Goal (LTG) Pt will be able to amb for 50 ft without leaning onto LBQC for heavy support in order to reduce fall risk. 04/18/2020: Pt with minimal leaning into QC with gait, but has step-to gait d/t paraplegia and so he does lean into it to clear right foot. LTG Duration 10/03/2020 Progress Towards Goals Progress Towards Goals Progressing Toward Goals,Slow Progress due to Medical Issues Assessment Summary Assessment Pt largely similar to last reassessment in June, but just returned to therapy after a one month hiatus due to scheduling conflicts. Pt may be reaching a progress plateau , but should benefit from continued skilled therapy to next reassessment. If pt continues to show minimal change, may need d/c at that time. Physical Therapy Plan Frequency and Duration Frequency of Treatment 2x/Week Duration of Treatment 8 weeks Plan of Care Start Date 08/03/20 Plan of Care End Date 09/28/20 Therapeutic Interventions Therapeutic Interventions Balance Training,Gait Training ,Home Exercise Program, Neuromuscular Re-education, Orthotic/Prosthetic Management ,Patient/Caregiver Education, Self-Care/Home Management, Therapeutic Exercises Next Visit Focus/Plan Next Note Type Treatment Note Next Visit Plan Progress gait and other exercises to improve balance and strength
--- NOTE | 2020-08-03 15:18 | PT.OPPOC ---
Physical, Occupational & Speech Therapy At [facility] 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 (08/03/20) Weakness (08/03/20) Visit Care Team Role Provider Type Delfino Epstein MD Attending Provider Physician Primary Care Provider Specialty: [facility] Practice Address: [address] [place] [address], [id number] Email: [email or web address] Plan Of Care PT-OP-T Assessment and Plan Start: 11/10/19 18:02 Freq: Status: Active Protocol: Document 08/03/20 14:30 DCW (Rec: 08/03/20 15:18 DCW [id number]) Physical Therapy Assessment Impairments Impairments Activity Tolerance,Balance, Coordination,Functional Activities,Functional Mobility ,Gait,Pain,Posture,ROM, Sensation,Soft Tissue Mobility ,Strength,Tone,Transfers Goals 4 Halfway Goal (LTG) Pt will be able to perform 10 reps sit to stand with left UE support if needed in 30 sec to improve transition from sit to gait and decrease fall risk by 06/17/2020. 04/18/2020: Pt performs 4 reps sit to stand--1 with left hand support and 3 without UE support in 30 sec. LTG Duration 10/03/20 Tinnetti Impairment high fall risk Short Term Goal (STG) Pt will improve his ability to turn and step up with gait patterns to decrease fall risk . STG Duration Met Halfway Goal (LTG) Pt will increase Tinnetti score to at least 24/28 in order to decrease fall risk to low. 04/18/2020: Tinetti score is 13 /28. LTG Duration 10/03/20 6MWT Impairment Pt amb 328 feet during 6MWT Halfway Goal (LTG) A walking speed of <1.97 can indicate an increased risk of further functional decline. Pt to ambulate >400' during 6 MWT in order to decrease his risk. 04/18/2020: Pt gait trains 218 feet in 6 minutes with QC LTG Duration 10/03/20 - Improving (385') Gait Impairment gait deviations Short Term Goal (STG) Pt will be able to amb for 20 ft with minimal in-toeing of LLE in order to reduce risk of falls. STG Duration Met Dopeman Goal (LTG) Pt will be able to amb for 50 ft without leaning onto LBQC for heavy support in order to reduce fall risk. 04/18/2020: Pt with minimal leaning into QC with gait, but has step-to gait d/t paraplegia and so he does lean into it to clear right foot. LTG Duration 10/03/2020 Progress Towards Goals Progress Towards Goals Progressing Toward Goals,Slow Progress due to Medical Issues Assessment Summary Assessment Pt largely similar to last reassessment in June, but just returned to therapy after a one month hiatus due to scheduling conflicts. Pt may be reaching a progress plateau , but should benefit from continued skilled therapy to next reassessment. If pt continues to show minimal change, may need d/c at that time. Physical Therapy Plan Frequency and Duration Frequency of Treatment 2x/Week Duration of Treatment 8 weeks Plan of Care Start Date 08/03/20 Plan of Care End Date 09/28/20 Therapeutic Interventions Therapeutic Interventions Balance Training,Gait Training ,Home Exercise Program, Neuromuscular Re-education, Orthotic/Prosthetic Management ,Patient/Caregiver Education, Self-Care/Home Management, Therapeutic Exercises Next Visit Focus/Plan Next Note Type Treatment Note Next Visit Plan Progress gait and other exercises to improve balance and strength Plan of Care Dates Plan of Care Start Date 08/03/20 Plan of Care End Date 09/28/20 Electronically Signed by: Jefferson Ceron, PT 08/03/20 [id number] Please Sign and Return: I have reviewed this Plan of Care and certify that the skilled therapy services above are required to meet the patient?s needs. Physician Signature Date Printed Name and Credentials Clinical Instructor Signature Printed Name and Credentials
--- NOTE | 2020-08-17 12:10 | PT.OTN ---
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 (08/17/20) Weakness (08/17/20) Physical Therapy Treatment Note PT-OP-A Visit Information Start: 11/10/19 12:59 Freq: Status: Active Protocol: Document 08/17/20 12:01 AW (Rec: 08/17/20 12:10 AW [email or web address]) Out-Patient Physical Therapy Visit Information Visit Information Visit Type Treatment Note Visit Start Time 10:30 Visit Stop Time 11:15 Total Visit Minutes 45 Visit Number 04/11 Evaluation Information Evaluation Date 11/10/19 PT-OP-B Current Condition Start: 11/10/19 12:59 Freq: Status: Active Protocol: Document 11/10/19 17:38 AMH (Rec: 11/10/19 18:01 AMH [email or web address]) Current Condition History of Current Condition Onset Date CVA in 2013. Falls x3 & hospitalization 06/22/19, and August 2019 Current Complaints dec activitiy tolerance, poor balance, dec amb speed History of Current Condition Pt is a 63 y.o. 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 Pt has been seen at [facility] OP for PT, OT, ST over the past few years. He was recently hospitalized ( 06/22/19) for 3 falls in the same day. And then again in August 2019. The patient had very low sodium levels at the time One fall occured in the shower and 2 occured getting out of bed. Since recent hospitalization, daughter reports she has seen a decline in his function in dec cognitive processing. Pt has dec stamina with walking, is more unstable on his feet, has been shuffling more and appears to have less coordination. Daughter saraives he fell on 06/22/19 was due to pain in his LLE (from RA). Pt reports no sensation on RLE. He has a hx of Rhemuatoid Arthritis, blood clots, depression, diabetes mellitus I, falls, depression, heart attack, pacemaker, neuropathy, and R elbow surgery. Pt amb w a large base quad cane and DF assist AFO. Pt has had multiple falls prior to most recent hospitalization that normally occur with transitional movements like getting out of bed or into a car, prabhu when he is tired. There is an incline and gravel on their driveway which his daughter believes may be contributing to the falls with car transfers. Pt has required 24/7 caregiving since his CVA in 2013, which is provided by his daughter during the daytime and his at nighttime. Prior Treatments and Tests PT, OT, ST. Has seen improvements with PT, but discontinued d/t plateauing of function. Future Testing and Treatments Planned OT and speech at [facility] Treatment Goals Patient/Caregiver Goals To improve walking endurance, balance and to decrease fall risk. Prior Functional Status Baseline Function- ADL's Needs Assist Baseline Function- Mobility Needs Assist Baseline Function- Gait LBQC, AFO Baseline Function- Work/School NA Baseline Function- Recreation/Hobbies Able to ride in car with his daughter to drop of grandchildren at school. Able to amb short distances in the community w/LBQC. Able to use motorized carts at larger stores PT-OP-C Subjective Start: 11/10/19 12:59 Freq: Status: Active Protocol: Document 08/17/20 12:01 AW (Rec: 08/17/20 12:10 AW [email or web address]) OP-PT Subjective Patient Comments Patient Comments Pt has no complaints today PT-OP-D Balance Start: 11/10/19 18:02 Freq: Status: Active Protocol: Document 08/03/20 14:30 DCW (Rec: 08/03/20 15:00 DCW [id number]) Tinetti Balance Assessment Sitting Balance Sitting Balance Steady, safe Arising from Chair Ability to Arise Able, uses arms to help Attempts to Arise Arises on 1st attempt Standing Balance Immediate Standing Balance Steady w/o support Standing Balance Narrow stance w/o support Nudged Response Steady Standing with Eyes Closed Steady Turning Step Pattern Turning 360 Degrees Discontinuous steps Stability Turning 360 Degrees Unsteady, grabs/staggers Sitting Down Sitting Down Uses arms or unsteady Gait and Step Initiation of Gait No hesitancy Right Foot Step Length Does pass stance foot Right Foot Step Height Completely clears floor Left Foot Step Length Does not pass stance foot Left Foot Step Height Completely clears floor Step Description Step Symmetry Step length not equal Step Continuity Stopping or discontinuity Gait Description Path Description Mild/moderate deviation Trunk Description Marked sway or uses aide Walking Stance Heels together Scoring and Interpretation Tinetti Composite Score (points) 18 Interpretation of Scores High risk for falls(< 19) Tinetti Impairment Rating from Composite 20 to <40% Impaired (Score 17- Score 22) PT-OP-E Functional Tests Start: 11/10/19 18:02 Freq: Status: Active Protocol: Document 08/03/20 14:30 DCW (Rec: 08/03/20 15:00 DCW [id number]) Functional Tests 6 Minute Walk Test Distance 385 Device Used large base quad cane Comments 1.07 ft/sec Timed Up and Go (TUG) Score 30.5 sec /c LBQC Comments 3-trial average (32.13, 31.08, 28.29) TUG Impairment Rating 100% Impaired (Score 20) PT-OP-G Mobility & Gait Start: 11/10/19 18:02 Freq: Status: Active Protocol: Document 11/10/19 18:02 AMH (Rec: 11/10/19 18:05 AMH [email or web address]) OP Mobility Evaluation Bed Mobility Rolling able to roll in bed ind Supine to and from Sit able to transfer supine to and from sit ind Transfers Sit to Stand Heavy use of LUE to push up from chair. Pt had some instability with rising from chair. OP Gait Assessment Gait Gait Assistance Required: Standby Assistance Assistive Devices Assistive Device Large Based Quad Cane Orthotic/Prosthetic Devices or Brace: Yes Gait Deviations General Gait Pattern Antalgic,Decreased Stride Length,Decreased Feet Clearance,Narrow Based Gait Factors Limiting Gait Function Factors Limiting Gait Function Decreased Activity Tolerance, Decreased Strength,Poor Balance,Poor Safety Awareness PT-OP-M Strength Start: 11/10/19 18:02 Freq: Status: Active Protocol: Document 08/03/20 14:30 DCW (Rec: 08/03/20 15:00 DCW [id number]) Hip Strength Hip Manual Muscle Testing Right Flexion (L2) 3- Fair- Extension (S1) 2+ Poor+ Abduction 2 Poor Adduction 2+ Poor+ External Rotation 2 Poor Internal Rotation 2 Poor Left Flexion (L2) 3+ Fair+ Extension (S1) 4 Good Abduction 3+ Fair+ Adduction 4- Good- External Rotation 4 Good Internal Rotation 4 Good Knee Strength Knee Manual Muscle Testing Right Flexion (S2) 2 Poor Extension (L3) 3- Fair- PT-OP-Q Treatments Start: 11/10/19 18:02 Freq: Status: Active Protocol: Document 08/17/20 12:01 AW (Rec: 08/17/20 12:10 AW [email or web address]) Cardio Equipment Recumbent Elliptical (Biodex) Duration (Minutes) 6 Resistance 6 Seat Position 9 Gym Equipment Shuttle Recovery Unilateral Squats Details Unilateral Squats Resistance 37#, 25# Shuttle Recovery Platform Stable Reps/Time 6 + 6; pt unable to complete more than 6 with 37# Bilateral Squats Details Bilateral Squats Resistance 62# Shuttle Recovery Platform Stable Reps/Time x20 Shuttle Balance red clips Details Red Comments Wide NATE, Staggered. Required CGA Therapeutic Exercises Standing Exercises 4 Standing Exercise Name Step ups Side right Equipment Used 6 step Reps/Minutes 10 reps Comments facilitation/tactile cues for knee extension 2 Standing Exercise Name Resisted side-stepping, fwd Resistance yellow Equipment Used T-band Comments increased excursion in side- step with yellow band 1 Standing Exercise Name Toe-taps Side bilateral Equipment Used 6 step Comments unilateral x 10; alternating x 10 PT-OP-T Assessment and Plan Start: 11/10/19 18:02 Freq: Status: Active Protocol: Document 08/17/20 12:01 AW (Rec: 08/17/20 12:10 AW [email or web address]) Physical Therapy Assessment Impairments Impairments Activity Tolerance,Balance, Coordination,Functional Activities,Functional Mobility ,Gait,Pain,Posture,ROM, Sensation,Soft Tissue Mobility ,Strength,Tone,Transfers Goals 4 [employer] Goal (LTG) Pt will be able to perform 10 reps sit to stand with left UE support if needed in 30 sec to improve transition from sit to gait and decrease fall risk by 06/17/2020. 04/18/2020: Pt performs 4 reps sit to stand--1 with left hand support and 3 without UE support in 30 sec. LTG Duration 10/03/20 Tinnetti Impairment high fall risk Short Term Goal (STG) Pt will improve his ability to turn and step up with gait patterns to decrease fall risk . STG Duration Met Longterm Goal (LTG) Pt will increase Tinnetti score to at least 24/28 in order to decrease fall risk to low. 04/18/2020: Tinetti score is 13 /28. LTG Duration 10/03/20 6MWT Impairment Pt amb 328 feet during 6MWT Longterm Goal (LTG) A walking speed of <1.97 can indicate an increased risk of further functional decline. Pt to ambulate >400' during 6 MWT in order to decrease his risk. 04/18/2020: Pt gait trains 218 feet in 6 minutes with QC LTG Duration 10/03/20 - Improving (385') Gait Impairment gait deviations Short Term Goal (STG) Pt will be able to amb for 20 ft with minimal in-toeing of LLE in order to reduce risk of falls. STG Duration Met Longterm Goal (LTG) Pt will be able to amb for 50 ft without leaning onto LBQC for heavy support in order to reduce fall risk. 04/18/2020: Pt with minimal leaning into QC with gait, but has step-to gait d/t paraplegia and so he does lean into it to clear right foot. LTG Duration 10/03/2020 Progress Towards Goals Progress Towards Goals Progressing Toward Goals,Slow Progress due to Medical Issues Assessment Summary Assessment Pt had increased fatigue RLE today but was able to tolerate similar load as previous treatments in most exercises. Pt shows good effort but requires frequent rest breaks today. Physical Therapy Plan Frequency and Duration Frequency of Treatment 2x/Week Duration of Treatment 8 weeks Plan of Care Start Date 08/03/20 Plan of Care End Date 09/28/20 Therapeutic Interventions Therapeutic Interventions Balance Training,Gait Training ,Home Exercise Program, Neuromuscular Re-education, Orthotic/Prosthetic Management ,Patient/Caregiver Education, Self-Care/Home Management, Therapeutic Exercises Next Visit Focus/Plan Next Note Type Treatment Note Next Visit Plan Progress gait and other exercises to improve balance and strength
--- NOTE | 2020-08-24 15:55 | PT.OTN ---
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 (08/24/20) Weakness (08/24/20) Physical Therapy Treatment Note PT-OP-A Visit Information Start: 11/10/19 12:59 Freq: Status: Active Protocol: Document 08/24/20 15:45 AW (Rec: 08/24/20 15:55 AW [id number]) Out-Patient Physical Therapy Visit Information Visit Information Visit Type Treatment Note Visit Start Time 13:46 Visit Stop Time 14:30 Total Visit Minutes 44 Visit Number 7/8 Number of RUBBER CURER Visits 0 Evaluation Information Evaluation Date 11/10/19 PT-OP-B Current Condition Start: 11/10/19 12:59 Freq: Status: Active Protocol: Document 11/10/19 17:38 AMH (Rec: 11/10/19 18:01 AMH [email or web address]) Current Condition History of Current Condition Onset Date CVA in 2013. Falls x3 & hospitalization 06/22/19, and August 2019 Current Complaints dec activitiy tolerance, poor balance, dec amb speed History of Current Condition Pt is a 63 y.o. 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 Pt has been seen at [facility] OP for PT, OT, ST over the past few years. He was recently hospitalized ( 06/22/19) for 3 falls in the same day. And then again in August 2019. The patient had very low sodium levels at the time One fall occured in the shower and 2 occured getting out of bed. Since recent hospitalization, daughter reports she has seen a decline in his function in dec cognitive processing. Pt has dec stamina with walking, is more unstable on his feet, has been shuffling more and appears to have less coordination. Daughter belives he fell on 06/22/19 was due to pain in his LLE (from RA). Pt reports no sensation on RLE. He has a hx of Rhemuatoid Arthritis, blood clots, depression, diabetes mellitus I, falls, depression, heart attack, pacemaker, neuropathy, and R elbow surgery. Pt amb w a large base quad cane and DF assist AFO. Pt has had multiple falls prior to most recent hospitalization that normally occur with transitional movements like getting out of bed or into a car, prabhu when he is tired. There is an incline and gravel on their driveway which his daughter believes may be contributing to the falls with car transfers. Pt has required 24/7 caregiving since his CVA in 2013, which is provided by his daughter during the daytime and his at nighttime. Prior Treatments and Tests PT, OT, ST. Has seen improvements with PT, but discontinued d/t plateauing of function. Future Testing and Treatments Planned OT and speech at [facility] Treatment Goals Patient/Caregiver Goals To improve walking endurance, balance and to decrease fall risk. Prior Functional Status Baseline Function- ADL's Needs Assist Baseline Function- Mobility Needs Assist Baseline Function- Gait LBQC, AFO Baseline Function- Work/School NA Baseline Function- Recreation/Hobbies Able to ride in car with his daughter to drop of grandchildren at school. Able to amb short distances in the community w/LBQC. Able to use motorized carts at larger stores PT-OP-C Subjective Start: 11/10/19 12:59 Freq: Status: Active Protocol: Document 08/24/20 15:45 AW (Rec: 08/24/20 15:55 AW [id number]) OP-PT Subjective Patient Comments Patient Comments Pt appears tired today but denies complaints. PT-OP-D Balance Start: 11/10/19 18:02 Freq: Status: Active Protocol: Document 08/03/20 14:30 DCW (Rec: 08/03/20 15:00 DCW [id number]) Tinetti Balance Assessment Sitting Balance Sitting Balance Steady, safe Arising from Chair Ability to Arise Able, uses arms to help Attempts to Arise Arises on 1st attempt Standing Balance Immediate Standing Balance Steady w/o support Standing Balance Narrow stance w/o support Nudged Response Steady Standing with Eyes Closed Steady Turning Step Pattern Turning 360 Degrees Discontinuous steps Stability Turning 360 Degrees Unsteady, grabs/staggers Sitting Down Sitting Down Uses arms or unsteady Gait and Step Initiation of Gait No hesitancy Right Foot Step Length Does pass stance foot Right Foot Step Height Completely clears floor Left Foot Step Length Does not pass stance foot Left Foot Step Height Completely clears floor Step Description Step Symmetry Step length not equal Step Continuity Stopping or discontinuity Gait Description Path Description Mild/moderate deviation Trunk Description Marked sway or uses aide Walking Stance Heels together Scoring and Interpretation Tinetti Composite Score (points) 18 Interpretation of Scores High risk for falls(< 19) Tinetti Impairment Rating from Composite 20 to <40% Impaired (Score 17- Score 22) PT-OP-E Functional Tests Start: 11/10/19 18:02 Freq: Status: Active Protocol: Document 08/03/20 14:30 DCW (Rec: 08/03/20 15:00 DCW [id number]) Functional Tests 6 Minute Walk Test Distance 385 Device Used large base quad cane Comments 1.07 ft/sec Timed Up and Go (TUG) Score 30.5 sec /c LBQC Comments 3-trial average (32.13, 31.08, 28.29) TUG Impairment Rating 100% Impaired (Score 20) PT-OP-G Mobility & Gait Start: 11/10/19 18:02 Freq: Status: Active Protocol: Document 11/10/19 18:02 AMH (Rec: 11/10/19 18:05 AMH [email or web address]) OP Mobility Evaluation Bed Mobility Rolling able to roll in bed ind Supine to and from Sit able to transfer supine to and from sit ind Transfers Sit to Stand Heavy use of LUE to push up from chair. Pt had some instability with rising from chair. OP Gait Assessment Gait Gait Assistance Required: Standby Assistance Assistive Devices Assistive Device Large Based Quad Cane Orthotic/Prosthetic Devices or Brace: Yes Gait Deviations General Gait Pattern Antalgic,Decreased Stride Length,Decreased Feet Clearance,Narrow Based Gait Factors Limiting Gait Function Factors Limiting Gait Function Decreased Activity Tolerance, Decreased Strength,Poor Balance,Poor Safety Awareness PT-OP-M Strength Start: 11/10/19 18:02 Freq: Status: Active Protocol: Document 08/03/20 14:30 DCW (Rec: 08/03/20 15:00 DCW [id number]) Hip Strength Hip Manual Muscle Testing Right Flexion (L2) 3- Fair- Extension (S1) 2+ Poor+ Abduction 2 Poor Adduction 2+ Poor+ External Rotation 2 Poor Internal Rotation 2 Poor Left Flexion (L2) 3+ Fair+ Extension (S1) 4 Good Abduction 3+ Fair+ Adduction 4- Good- External Rotation 4 Good Internal Rotation 4 Good Knee Strength Knee Manual Muscle Testing Right Flexion (S2) 2 Poor Extension (L3) 3- Fair- PT-OP-Q Treatments Start: 11/10/19 18:02 Freq: Status: Active Protocol: Document 08/24/20 15:45 AW (Rec: 08/24/20 15:55 AW [id number]) Cardio Equipment Recumbent Elliptical (Biodex) Duration (Minutes) 6 Resistance 7 Seat Position 9 Other 3 min at resistance 7; turned down to resistance 6 at pt request Gym Equipment Shuttle Recovery Unilateral Squats Details Unilateral Squats Resistance 37# Shuttle Recovery Platform Stable Reps/Time 10 Bilateral Squats Details Bilateral Squats Resistance 62# Shuttle Recovery Platform Stable Reps/Time 15 x 2 Therapeutic Exercises Standing Exercises 4 Standing Exercise Name Step ups Side right Equipment Used 4 step Reps/Minutes 10 reps x 2 Comments decreased tactile cueing for knee extension 1 Standing Exercise Name Toe-taps Side bilateral Equipment Used 6 step Comments unilateral x 10; alternating x 10 Gait Training Gait Activity gait Description Gait training with AD Device Used quad cane Level of Assistance CGA Surface carpet and tile Distance/Duration 300 feet Treatment Focus lifting toe and striking down with heel PT-OP-T Assessment and Plan Start: 11/10/19 18:02 Freq: Status: Active Protocol: Document 08/24/20 15:45 AW (Rec: 08/24/20 15:55 AW [id number]) Physical Therapy Assessment Impairments Impairments Activity Tolerance,Balance, Coordination,Functional Activities,Functional Mobility ,Gait,Pain,Posture,ROM, Sensation,Soft Tissue Mobility ,Strength,Tone,Transfers Goals 4 Group Home Goal (LTG) Pt will be able to perform 10 reps sit to stand with left UE support if needed in 30 sec to improve transition from sit to gait and decrease fall risk by 06/17/2020. 04/18/2020: Pt performs 4 reps sit to stand--1 with left hand support and 3 without UE support in 30 sec. LTG Duration 10/03/20 Tinnetti Impairment high fall risk Short Term Goal (STG) Pt will improve his ability to turn and step up with gait patterns to decrease fall risk . STG Duration Met Relationship Assoc Goal (LTG) Pt will increase Tinnetti score to at least 24/28 in order to decrease fall risk to low. 04/18/2020: Tinetti score is 13 /28. LTG Duration 10/03/20 6MWT Impairment Pt amb 328 feet during 6MWT Group Home Goal (LTG) A walking speed of <1.97 can indicate an increased risk of further functional decline. Pt to ambulate >400' during 6 MWT in order to decrease his risk. 04/18/2020: Pt gait trains 218 feet in 6 minutes with QC LTG Duration 10/03/20 - Improving (385') Gait Impairment gait deviations Short Term Goal (STG) Pt will be able to amb for 20 ft with minimal in-toeing of LLE in order to reduce risk of falls. STG Duration Met Relationship Assoc Goal (LTG) Pt will be able to amb for 50 ft without leaning onto LBQC for heavy support in order to reduce fall risk. 04/18/2020: Pt with minimal leaning into QC with gait, but has step-to gait d/t paraplegia and so he does lean into it to clear right foot. LTG Duration 10/03/2020 Progress Towards Goals Progress Towards Goals Progressing Toward Goals,Slow Progress due to Medical Issues Assessment Summary Assessment Pt again required frequent rest breaks today with load similar to past two sessions. Will continue to assess pt's ability to progress with goals . Physical Therapy Plan Frequency and Duration Frequency of Treatment 2x/Week Duration of Treatment 8 weeks Plan of Care Start Date 08/03/20 Plan of Care End Date 09/28/20 Therapeutic Interventions Therapeutic Interventions Balance Training,Gait Training ,Home Exercise Program, Neuromuscular Re-education, Orthotic/Prosthetic Management ,Patient/Caregiver Education, Self-Care/Home Management, Therapeutic Exercises Next Visit Focus/Plan Next Note Type Treatment Note Next Visit Plan Progress gait and other exercises to improve balance and strength
--- NOTE | 2020-08-30 17:36 | PT.OTN ---
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 (08/30/20) Weakness (08/30/20) Physical Therapy Treatment Note PT-OP-A Visit Information Start: 11/10/19 12:59 Freq: Status: Active Protocol: Document 08/30/20 16:45 DCW (Rec: 08/30/20 17:36 DCW [id number]) Out-Patient Physical Therapy Visit Information Visit Information Visit Type Progress Note Visit Note Insurance auth testing Visit Start Time 16:45 Visit Stop Time 17:30 Total Visit Minutes 45 Visit Number 06/11 Number of REPLACER Visits 0 Evaluation Information Evaluation Date 11/10/19 PT-OP-B Current Condition Start: 11/10/19 12:59 Freq: Status: Active Protocol: Document 11/10/19 17:38 AMH (Rec: 11/10/19 18:01 AMH [id number]) Current Condition History of Current Condition Onset Date CVA in 2013. Falls x3 & hospitalization 06/22/19, and August 2019 Current Complaints dec activitiy tolerance, poor balance, dec amb speed History of Current Condition Pt is a 63 y.o. 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 Pt has been seen at [facility] OP for PT, OT, ST over the past few years. He was recently hospitalized ( 06/22/19) for 3 falls in the same day. And then again in August 2019. The patient had very low sodium levels at the time One fall occured in the shower and 2 occured getting out of bed. Since recent hospitalization, daughter reports she has seen a decline in his function in dec cognitive processing. Pt has dec stamina with walking, is more unstable on his feet, has been shuffling more and appears to have less coordination. Daughter saraives he fell on 06/22/19 was due to pain in his LLE (from RA). Pt reports no sensation on RLE. He has a hx of Rhemuatoid Arthritis, blood clots, depression, diabetes mellitus I, falls, depression, heart attack, pacemaker, neuropathy, and R elbow surgery. Pt amb w a large base quad cane and DF assist AFO. Pt has had multiple falls prior to most recent hospitalization that normally occur with transitional movements like getting out of bed or into a car, prabhu when he is tired. There is an incline and gravel on their driveway which his daughter believes may be contributing to the falls with car transfers. Pt has required 24/7 caregiving since his CVA in 2013, which is provided by his daughter during the daytime and his at nighttime. Prior Treatments and Tests PT, OT, ST. Has seen improvements with PT, but discontinued d/t plateauing of function. Future Testing and Treatments Planned OT and speech at [facility] Treatment Goals Patient/Caregiver Goals To improve walking endurance, balance and to decrease fall risk. Prior Functional Status Baseline Function- ADL's Needs Assist Baseline Function- Mobility Needs Assist Baseline Function- Gait LBQC, AFO Baseline Function- Work/School NA Baseline Function- Recreation/Hobbies Able to ride in car with his daughter to drop of grandchildren at school. Able to amb short distances in the community w/LBQC. Able to use motorized carts at larger stores PT-OP-C Subjective Start: 11/10/19 12:59 Freq: Status: Active Protocol: Document 08/30/20 16:45 DCW (Rec: 08/30/20 17:36 DCW [id number]) OP-PT Subjective Patient Comments Patient Comments Pt appears slightly more fatigued today at this later appointment time. PT-OP-D Balance Start: 11/10/19 18:02 Freq: Status: Active Protocol: Document 08/30/20 16:45 DCW (Rec: 08/30/20 17:17 DCW [id number]) Tinetti Balance Assessment Sitting Balance Sitting Balance Steady, safe Arising from Chair Ability to Arise Able, uses arms to help Attempts to Arise Arises on 1st attempt Standing Balance Immediate Standing Balance Steady w/o support Standing Balance Narrow stance w/o support Nudged Response Steady Standing with Eyes Closed Steady Turning Step Pattern Turning 360 Degrees Discontinuous steps Stability Turning 360 Degrees Steady Sitting Down Sitting Down Safe, steady Gait and Step Initiation of Gait No hesitancy Right Foot Step Length Does pass stance foot Right Foot Step Height Completely clears floor Left Foot Step Length Does not pass stance foot Left Foot Step Height Completely clears floor Step Description Step Symmetry Step length not equal Step Continuity Stopping or discontinuity Gait Description Path Description Mild/moderate deviation Trunk Description Marked sway or uses aide Walking Stance Heels together Scoring and Interpretation Tinetti Composite Score (points) 20 Interpretation of Scores At risk for falls (19-24) Tinetti Impairment Rating from Composite 20 to <40% Impaired (Score 17- Score 22) PT-OP-E Functional Tests Start: 11/10/19 18:02 Freq: Status: Active Protocol: Document 08/30/20 16:45 DCW (Rec: 08/30/20 17:17 DCW [id number]) Functional Tests 6 Minute Walk Test Distance 372 Device Used LBQC Comments 1.03 ft/sec Timed Up and Go (TUG) Score 26.6 sec /c LBQC Comments 3-trial average (29.67, 25.38, 24,61) TUG Impairment Rating 100% Impaired (Score 20) PT-OP-G Mobility & Gait Start: 11/10/19 18:02 Freq: Status: Active Protocol: Document 11/10/19 18:02 AMH (Rec: 11/10/19 18:05 AMH [email or web address]) OP Mobility Evaluation Bed Mobility Rolling able to roll in bed ind Supine to and from Sit able to transfer supine to and from sit ind Transfers Sit to Stand Heavy use of LUE to push up from chair. Pt had some instability with rising from chair. OP Gait Assessment Gait Gait Assistance Required: Standby Assistance Assistive Devices Assistive Device Large Based Quad Cane Orthotic/Prosthetic Devices or Brace: Yes Gait Deviations General Gait Pattern Antalgic,Decreased Stride Length,Decreased Feet Clearance,Narrow Based Gait Factors Limiting Gait Function Factors Limiting Gait Function Decreased Activity Tolerance, Decreased Strength,Poor Balance,Poor Safety Awareness PT-OP-M Strength Start: 11/10/19 18:02 Freq: Status: Active Protocol: Document 08/03/20 14:30 DCW (Rec: 08/03/20 15:00 DCW [id number]) Hip Strength Hip Manual Muscle Testing Right Flexion (L2) 3- Fair- Extension (S1) 2+ Poor+ Abduction 2 Poor Adduction 2+ Poor+ External Rotation 2 Poor Internal Rotation 2 Poor Left Flexion (L2) 3+ Fair+ Extension (S1) 4 Good Abduction 3+ Fair+ Adduction 4- Good- External Rotation 4 Good Internal Rotation 4 Good Knee Strength Knee Manual Muscle Testing Right Flexion (S2) 2 Poor Extension (L3) 3- Fair- PT-OP-Q Treatments Start: 11/10/19 18:02 Freq: Status: Active Protocol: Document 08/30/20 16:45 DCW (Rec: 08/30/20 17:36 DCW [id number]) Therapeutic Exercises Standing Exercises 2 Standing Exercise Name Resisted side-stepping, fwd Resistance yellow Equipment Used T-band Comments increased excursion in side- step with yellow band 1 Standing Exercise Name Toe-taps Side bilateral Equipment Used 6 step Comments unilateral x 10; alternating x 10 Neuro Re-Education Treatment Other Activities Tinetti standing balance exercises Details Testing Comments Tinetti, 6 MWT, TUG PT-OP-T Assessment and Plan Start: 11/10/19 18:02 Freq: Status: Active Protocol: Document 08/30/20 16:45 DCW (Rec: 08/30/20 17:36 DCW [id number]) Physical Therapy Assessment Impairments Impairments Activity Tolerance,Balance, Coordination,Functional Activities,Functional Mobility ,Gait,Pain,Posture,ROM, Sensation,Soft Tissue Mobility ,Strength,Tone,Transfers Goals 4 Wing Mailer Machine Operator Goal (LTG) Pt will be able to perform 10 reps sit to stand with left UE support if needed in 30 sec to improve transition from sit to gait and decrease fall risk by 06/17/2020. 04/18/2020: Pt performs 4 reps sit to stand--1 with left hand support and 3 without UE support in 30 sec. LTG Duration 10/03/20 Tinnetti Impairment high fall risk Short Term Goal (STG) Pt will improve his ability to turn and step up with gait patterns to decrease fall risk . STG Duration Met Wing Mailer Machine Operator Goal (LTG) Pt will increase Tinnetti score to at least 24/28 in order to decrease fall risk to low. 04/18/2020: Tinetti score is 13 /28. LTG Duration 10/03/20 6MWT Impairment Pt amb 328 feet during 6MWT Alf Goal (LTG) A walking speed of <1.97 can indicate an increased risk of further functional decline. Pt to ambulate >400' during 6 MWT in order to decrease his risk. 04/18/2020: Pt gait trains 218 feet in 6 minutes with QC LTG Duration 10/03/20 - Improving (385') Gait Impairment gait deviations Short Term Goal (STG) Pt will be able to amb for 20 ft with minimal in-toeing of LLE in order to reduce risk of falls. STG Duration Met Alf Goal (LTG) Pt will be able to amb for 50 ft without leaning onto LBQC for heavy support in order to reduce fall risk. 04/18/2020: Pt with minimal leaning into QC with gait, but has step-to gait d/t paraplegia and so he does lean into it to clear right foot. LTG Duration 10/03/2020 Progress Towards Goals Progress Towards Goals Progressing Toward Goals,Slow Progress due to Medical Issues Assessment Summary Assessment Prog note today for continued insurance authorization. Minimal, if any, progress over the last eight visits, however with the neurological nature of pt's deficits, there was no real expectation of improvement over such a short time period. Physical Therapy Plan Frequency and Duration Frequency of Treatment 2x/Week Duration of Treatment 8 weeks Plan of Care Start Date 08/30/20 Plan of Care End Date 10/25/20 Therapeutic Interventions Therapeutic Interventions Balance Training,Gait Training ,Home Exercise Program, Neuromuscular Re-education, Orthotic/Prosthetic Management ,Patient/Caregiver Education, Self-Care/Home Management, Therapeutic Exercises Next Visit Focus/Plan Next Note Type Treatment Note Next Visit Plan Progress gait and other exercises to improve balance and strength
--- NOTE | 2020-08-30 17:37 | PT.OPPOC ---
Physical, Occupational & Speech Therapy At [facility] 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 (08/30/20) Weakness (08/30/20) Visit Care Team Role Provider Type Delfino Epstein MD Attending Provider Physician Primary Care Provider Specialty: [facility] Practice Address: [address] [place] [address], [facility] Email: [email or web address] Plan Of Care PT-OP-T Assessment and Plan Start: 11/10/19 18:02 Freq: Status: Active Protocol: Document 08/30/20 16:45 DCW (Rec: 08/30/20 17:36 DCW [id number]) Physical Therapy Assessment Impairments Impairments Activity Tolerance,Balance, Coordination,Functional Activities,Functional Mobility ,Gait,Pain,Posture,ROM, Sensation,Soft Tissue Mobility ,Strength,Tone,Transfers Goals 4 Care Home Goal (LTG) Pt will be able to perform 10 reps sit to stand with left UE support if needed in 30 sec to improve transition from sit to gait and decrease fall risk by 06/17/2020. 04/18/2020: Pt performs 4 reps sit to stand--1 with left hand support and 3 without UE support in 30 sec. LTG Duration 10/03/20 Tinnetti Impairment high fall risk Short Term Goal (STG) Pt will improve his ability to turn and step up with gait patterns to decrease fall risk . STG Duration Met Care Home Goal (LTG) Pt will increase Tinnetti score to at least 24/28 in order to decrease fall risk to low. 04/18/2020: Tinetti score is 13 /28. LTG Duration 10/03/20 6MWT Impairment Pt amb 328 feet during 6MWT Care Home Goal (LTG) A walking speed of <1.97 can indicate an increased risk of further functional decline. Pt to ambulate >400' during 6 MWT in order to decrease his risk. 04/18/2020: Pt gait trains 218 feet in 6 minutes with QC LTG Duration 10/03/20 - Improving (385') Gait Impairment gait deviations Short Term Goal (STG) Pt will be able to amb for 20 ft with minimal in-toeing of LLE in order to reduce risk of falls. STG Duration Met Special Delivery Mail Carrier Goal (LTG) Pt will be able to amb for 50 ft without leaning onto LBQC for heavy support in order to reduce fall risk. 04/18/2020: Pt with minimal leaning into QC with gait, but has step-to gait d/t paraplegia and so he does lean into it to clear right foot. LTG Duration 10/03/2020 Progress Towards Goals Progress Towards Goals Progressing Toward Goals,Slow Progress due to Medical Issues Assessment Summary Assessment Prog note today for continued insurance authorization. Minimal, if any, progress over the last eight visits, however with the neurological nature of pt's deficits, there was no real expectation of improvement over such a short time period. Physical Therapy Plan Frequency and Duration Frequency of Treatment 2x/Week Duration of Treatment 8 weeks Plan of Care Start Date 08/30/20 Plan of Care End Date 10/25/20 Therapeutic Interventions Therapeutic Interventions Balance Training,Gait Training ,Home Exercise Program, Neuromuscular Re-education, Orthotic/Prosthetic Management ,Patient/Caregiver Education, Self-Care/Home Management, Therapeutic Exercises Next Visit Focus/Plan Next Note Type Treatment Note Next Visit Plan Progress gait and other exercises to improve balance and strength Plan of Care Dates Plan of Care Start Date 08/30/20 Plan of Care End Date 10/25/20 Electronically Signed by: Jefferson Ceron, PT 08/30/20 4543 Please Sign and Return: I have reviewed this Plan of Care and certify that the skilled therapy services above are required to meet the patient?s needs. Physician Signature Date Printed Name and Credentials Clinical Instructor Signature Printed Name and Credentials
--- NOTE | 2020-09-06 17:34 | PT.OTN ---
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 (09/06/20) Weakness (09/06/20) Physical Therapy Treatment Note PT-OP-A Visit Information Start: 11/10/19 12:59 Freq: Status: Active Protocol: Document 09/06/20 16:10 DCW (Rec: 09/06/20 17:34 DCW [id number]) Out-Patient Physical Therapy Visit Information Visit Information Visit Type Treatment Note Visit Note 10 min late Visit Start Time 16:10 Visit Stop Time 16:45 Total Visit Minutes 35 Visit Number 1/7 Number of SHEARING MACHINE FEEDER Visits 0 Evaluation Information Evaluation Date 11/10/19 PT-OP-B Current Condition Start: 11/10/19 12:59 Freq: Status: Active Protocol: Document 11/10/19 17:38 AMH (Rec: 11/10/19 18:01 AMH [email or web address]) Current Condition History of Current Condition Onset Date CVA in 2013. Falls x3 & hospitalization 06/22/19, and August 2019 Current Complaints dec activitiy tolerance, poor balance, dec amb speed History of Current Condition Pt is a 63 y.o. 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 Pt has been seen at [facility] OP for PT, OT, ST over the past few years. He was recently hospitalized ( 06/22/19) for 3 falls in the same day. And then again in August 2019. The patient had very low sodium levels at the time One fall occured in the shower and 2 occured getting out of bed. Since recent hospitalization, daughter reports she has seen a decline in his function in dec cognitive processing. Pt has dec stamina with walking, is more unstable on his feet, has been shuffling more and appears to have less coordination. Daughter saraives he fell on 06/22/19 was due to pain in his LLE (from RA). Pt reports no sensation on RLE. He has a hx of Rhemuatoid Arthritis, blood clots, depression, diabetes mellitus I, falls, depression, heart attack, pacemaker, neuropathy, and R elbow surgery. Pt amb w a large base quad cane and DF assist AFO. Pt has had multiple falls prior to most recent hospitalization that normally occur with transitional movements like getting out of bed or into a car, prabhu when he is tired. There is an incline and gravel on their driveway which his daughter believes may be contributing to the falls with car transfers. Pt has required 24/7 caregiving since his CVA in 2013, which is provided by his daughter during the daytime and his at nighttime. Prior Treatments and Tests PT, OT, ST. Has seen improvements with PT, but discontinued d/t plateauing of function. Future Testing and Treatments Planned OT and speech at [facility] Treatment Goals Patient/Caregiver Goals To improve walking endurance, balance and to decrease fall risk. Prior Functional Status Baseline Function- ADL's Needs Assist Baseline Function- Mobility Needs Assist Baseline Function- Gait LBQC, AFO Baseline Function- Work/School NA Baseline Function- Recreation/Hobbies Able to ride in car with his daughter to drop of grandchildren at school. Able to amb short distances in the community w/LBQC. Able to use motorized carts at larger stores PT-OP-C Subjective Start: 11/10/19 12:59 Freq: Status: Active Protocol: Document 09/06/20 16:10 DCW (Rec: 09/06/20 17:34 DCW [id number]) OP-PT Subjective Patient Comments Patient Comments Per , they have been practicing seated putting at home, which pt has been enjoying. PT-OP-D Balance Start: 11/10/19 18:02 Freq: Status: Active Protocol: Document 08/30/20 16:45 DCW (Rec: 08/30/20 17:17 DCW [id number]) Tinetti Balance Assessment Sitting Balance Sitting Balance Steady, safe Arising from Chair Ability to Arise Able, uses arms to help Attempts to Arise Arises on 1st attempt Standing Balance Immediate Standing Balance Steady w/o support Standing Balance Narrow stance w/o support Nudged Response Steady Standing with Eyes Closed Steady Turning Step Pattern Turning 360 Degrees Discontinuous steps Stability Turning 360 Degrees Steady Sitting Down Sitting Down Safe, steady Gait and Step Initiation of Gait No hesitancy Right Foot Step Length Does pass stance foot Right Foot Step Height Completely clears floor Left Foot Step Length Does not pass stance foot Left Foot Step Height Completely clears floor Step Description Step Symmetry Step length not equal Step Continuity Stopping or discontinuity Gait Description Path Description Mild/moderate deviation Trunk Description Marked sway or uses aide Walking Stance Heels together Scoring and Interpretation Tinetti Composite Score (points) 20 Interpretation of Scores At risk for falls (19-24) Tinetti Impairment Rating from Composite 20 to <40% Impaired (Score 17- Score 22) PT-OP-E Functional Tests Start: 11/10/19 18:02 Freq: Status: Active Protocol: Document 08/30/20 16:45 DCW (Rec: 08/30/20 17:17 DCW [id number]) Functional Tests 6 Minute Walk Test Distance 372 Device Used LBQC Comments 1.03 ft/sec Timed Up and Go (TUG) Score 26.6 sec /c LBQC Comments 3-trial average (29.67, 25.38, 24,61) TUG Impairment Rating 100% Impaired (Score 20) PT-OP-G Mobility & Gait Start: 11/10/19 18:02 Freq: Status: Active Protocol: Document 11/10/19 18:02 AMH (Rec: 11/10/19 18:05 AMH [email or web address]) OP Mobility Evaluation Bed Mobility Rolling able to roll in bed ind Supine to and from Sit able to transfer supine to and from sit ind Transfers Sit to Stand Heavy use of LUE to push up from chair. Pt had some instability with rising from chair. OP Gait Assessment Gait Gait Assistance Required: Standby Assistance Assistive Devices Assistive Device Large Based Quad Cane Orthotic/Prosthetic Devices or Brace: Yes Gait Deviations General Gait Pattern Antalgic,Decreased Stride Length,Decreased Feet Clearance,Narrow Based Gait Factors Limiting Gait Function Factors Limiting Gait Function Decreased Activity Tolerance, Decreased Strength,Poor Balance,Poor Safety Awareness PT-OP-M Strength Start: 11/10/19 18:02 Freq: Status: Active Protocol: Document 08/03/20 14:30 DCW (Rec: 08/03/20 15:00 DCW [id number]) Hip Strength Hip Manual Muscle Testing Right Flexion (L2) 3- Fair- Extension (S1) 2+ Poor+ Abduction 2 Poor Adduction 2+ Poor+ External Rotation 2 Poor Internal Rotation 2 Poor Left Flexion (L2) 3+ Fair+ Extension (S1) 4 Good Abduction 3+ Fair+ Adduction 4- Good- External Rotation 4 Good Internal Rotation 4 Good Knee Strength Knee Manual Muscle Testing Right Flexion (S2) 2 Poor Extension (L3) 3- Fair- PT-OP-Q Treatments Start: 11/10/19 18:02 Freq: Status: Active Protocol: Document 09/06/20 16:10 DCW (Rec: 09/06/20 17:34 DCW [id number]) Cardio Equipment Recumbent Elliptical (Biodex) Duration (Minutes) 5 Resistance 4 Seat Position 9 Therapeutic Exercises Other Exercises hurdles Other Exercise Name Hurdles Resistance 5# Comments Fwd, Lateral Neuro Re-Education Treatment Balance Activities Putting Details Standing putting Comments R hand strapped to putter Focus on weight shift, trunk rotation, standing balance PT-OP-T Assessment and Plan Start: 11/10/19 18:02 Freq: Status: Active Protocol: Document 09/06/20 16:10 DCW (Rec: 09/06/20 17:34 DCW [id number]) Physical Therapy Assessment Impairments Impairments Activity Tolerance,Balance, Coordination,Functional Activities,Functional Mobility ,Gait,Pain,Posture,ROM, Sensation,Soft Tissue Mobility ,Strength,Tone,Transfers Goals 4 Coloring Checker Goal (LTG) Pt will be able to perform 10 reps sit to stand with left UE support if needed in 30 sec to improve transition from sit to gait and decrease fall risk by 06/17/2020. 04/18/2020: Pt performs 4 reps sit to stand--1 with left hand support and 3 without UE support in 30 sec. LTG Duration 10/03/20 Tinnetti Impairment high fall risk Short Term Goal (STG) Pt will improve his ability to turn and step up with gait patterns to decrease fall risk . STG Duration Met Coloring Checker Goal (LTG) Pt will increase Tinnetti score to at least 24/28 in order to decrease fall risk to low. 04/18/2020: Tinetti score is 13 /28. LTG Duration 10/03/20 6MWT Impairment Pt amb 328 feet during 6MWT Coloring Checker Goal (LTG) A walking speed of <1.97 can indicate an increased risk of further functional decline. Pt to ambulate >400' during 6 MWT in order to decrease his risk. 04/18/2020: Pt gait trains 218 feet in 6 minutes with QC LTG Duration 10/03/20 - Improving (385') Gait Impairment gait deviations Short Term Goal (STG) Pt will be able to amb for 20 ft with minimal in-toeing of LLE in order to reduce risk of falls. STG Duration Met Fdc Goal (LTG) Pt will be able to amb for 50 ft without leaning onto LBQC for heavy support in order to reduce fall risk. 04/18/2020: Pt with minimal leaning into QC with gait, but has step-to gait d/t paraplegia and so he does lean into it to clear right foot. LTG Duration 10/03/2020 Progress Towards Goals Progress Towards Goals Progressing Toward Goals,Slow Progress due to Medical Issues Assessment Summary Assessment Pt enjoyed new activity of putting, did well with balance and weight shift, struggled to fully involve right hand in swing, even with strap. Physical Therapy Plan Frequency and Duration Frequency of Treatment 2x/Week Duration of Treatment 8 weeks Plan of Care Start Date 08/30/20 Plan of Care End Date 10/25/20 Therapeutic Interventions Therapeutic Interventions Balance Training,Gait Training ,Home Exercise Program, Neuromuscular Re-education, Orthotic/Prosthetic Management ,Patient/Caregiver Education, Self-Care/Home Management, Therapeutic Exercises Next Visit Focus/Plan Next Note Type Treatment Note Next Visit Plan Progress gait and other exercises to improve balance and strength
--- NOTE | 2020-09-09 15:17 | PT.OTN ---
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 (09/09/20) Weakness (09/09/20) Physical Therapy Treatment Note PT-OP-A Visit Information Start: 11/10/19 12:59 Freq: Status: Active Protocol: Document 09/09/20 14:30 DCW (Rec: 09/09/20 15:17 DCW [id number]) Out-Patient Physical Therapy Visit Information Visit Information Visit Type Treatment Note Visit Start Time 14:30 Visit Stop Time 15:15 Total Visit Minutes 45 Visit Number 2/7 Number of COMPUTER TECHNOLOGY TEACHER Visits 0 Evaluation Information Evaluation Date 11/10/19 PT-OP-B Current Condition Start: 11/10/19 12:59 Freq: Status: Active Protocol: Document 11/10/19 17:38 AMH (Rec: 11/10/19 18:01 AMH [email or web address]) Current Condition History of Current Condition Onset Date CVA in 2013. Falls x3 & hospitalization 06/22/19, and August 2019 Current Complaints dec activitiy tolerance, poor balance, dec amb speed History of Current Condition Pt is a 63 y.o. 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 Pt has been seen at [facility] OP for PT, OT, ST over the past few years. He was recently hospitalized ( 06/22/19) for 3 falls in the same day. And then again in August 2019. The patient had very low sodium levels at the time One fall occured in the shower and 2 occured getting out of bed. Since recent hospitalization, daughter reports she has seen a decline in his function in dec cognitive processing. Pt has dec stamina with walking, is more unstable on his feet, has been shuffling more and appears to have less coordination. Daughter belives he fell on 06/22/19 was due to pain in his LLE (from RA). Pt reports no sensation on RLE. He has a hx of Rhemuatoid Arthritis, blood clots, depression, diabetes mellitus I, falls, depression, heart attack, pacemaker, neuropathy, and R elbow surgery. Pt amb w a large base quad cane and DF assist AFO. Pt has had multiple falls prior to most recent hospitalization that normally occur with transitional movements like getting out of bed or into a car, prabhu when he is tired. There is an incline and gravel on their driveway which his daughter believes may be contributing to the falls with car transfers. Pt has required 24/7 caregiving since his CVA in 2013, which is provided by his daughter during the daytime and his at nighttime. Prior Treatments and Tests PT, OT, ST. Has seen improvements with PT, but discontinued d/t plateauing of function. Future Testing and Treatments Planned OT and speech at [facility] Treatment Goals Patient/Caregiver Goals To improve walking endurance, balance and to decrease fall risk. Prior Functional Status Baseline Function- ADL's Needs Assist Baseline Function- Mobility Needs Assist Baseline Function- Gait LBQC, AFO Baseline Function- Work/School NA Baseline Function- Recreation/Hobbies Able to ride in car with his daughter to drop of grandchildren at school. Able to amb short distances in the community w/LBQC. Able to use motorized carts at larger stores PT-OP-C Subjective Start: 11/10/19 12:59 Freq: Status: Active Protocol: Document 09/09/20 14:30 DCW (Rec: 09/09/20 15:17 DCW [id number]) OP-PT Subjective Patient Comments Patient Comments Pt comes in today with a new brace on his right shoulder to limit subluxion. PT-OP-D Balance Start: 11/10/19 18:02 Freq: Status: Active Protocol: Document 08/30/20 16:45 DCW (Rec: 08/30/20 17:17 DCW [id number]) Tinetti Balance Assessment Sitting Balance Sitting Balance Steady, safe Arising from Chair Ability to Arise Able, uses arms to help Attempts to Arise Arises on 1st attempt Standing Balance Immediate Standing Balance Steady w/o support Standing Balance Narrow stance w/o support Nudged Response Steady Standing with Eyes Closed Steady Turning Step Pattern Turning 360 Degrees Discontinuous steps Stability Turning 360 Degrees Steady Sitting Down Sitting Down Safe, steady Gait and Step Initiation of Gait No hesitancy Right Foot Step Length Does pass stance foot Right Foot Step Height Completely clears floor Left Foot Step Length Does not pass stance foot Left Foot Step Height Completely clears floor Step Description Step Symmetry Step length not equal Step Continuity Stopping or discontinuity Gait Description Path Description Mild/moderate deviation Trunk Description Marked sway or uses aide Walking Stance Heels together Scoring and Interpretation Tinetti Composite Score (points) 20 Interpretation of Scores At risk for falls (19-24) Tinetti Impairment Rating from Composite 20 to <40% Impaired (Score 17- Score 22) PT-OP-E Functional Tests Start: 11/10/19 18:02 Freq: Status: Active Protocol: Document 08/30/20 16:45 DCW (Rec: 08/30/20 17:17 DCW [id number]) Functional Tests 6 Minute Walk Test Distance 372 Device Used LBQC Comments 1.03 ft/sec Timed Up and Go (TUG) Score 26.6 sec /c LBQC Comments 3-trial average (29.67, 25.38, 24,61) TUG Impairment Rating 100% Impaired (Score 20) PT-OP-G Mobility & Gait Start: 11/10/19 18:02 Freq: Status: Active Protocol: Document 11/10/19 18:02 AMH (Rec: 11/10/19 18:05 AMH [email or web address]) OP Mobility Evaluation Bed Mobility Rolling able to roll in bed ind Supine to and from Sit able to transfer supine to and from sit ind Transfers Sit to Stand Heavy use of LUE to push up from chair. Pt had some instability with rising from chair. OP Gait Assessment Gait Gait Assistance Required: Standby Assistance Assistive Devices Assistive Device Large Based Quad Cane Orthotic/Prosthetic Devices or Brace: Yes Gait Deviations General Gait Pattern Antalgic,Decreased Stride Length,Decreased Feet Clearance,Narrow Based Gait Factors Limiting Gait Function Factors Limiting Gait Function Decreased Activity Tolerance, Decreased Strength,Poor Balance,Poor Safety Awareness PT-OP-M Strength Start: 11/10/19 18:02 Freq: Status: Active Protocol: Document 08/03/20 14:30 DCW (Rec: 08/03/20 15:00 DCW [id number]) Hip Strength Hip Manual Muscle Testing Right Flexion (L2) 3- Fair- Extension (S1) 2+ Poor+ Abduction 2 Poor Adduction 2+ Poor+ External Rotation 2 Poor Internal Rotation 2 Poor Left Flexion (L2) 3+ Fair+ Extension (S1) 4 Good Abduction 3+ Fair+ Adduction 4- Good- External Rotation 4 Good Internal Rotation 4 Good Knee Strength Knee Manual Muscle Testing Right Flexion (S2) 2 Poor Extension (L3) 3- Fair- PT-OP-Q Treatments Start: 11/10/19 18:02 Freq: Status: Active Protocol: Document 09/09/20 14:30 DCW (Rec: 09/09/20 15:17 DCW [id number]) Cardio Equipment Recumbent Stepper (Sci-Fit) Duration (Minutes) 5 Resistance 2 Gym Equipment Shuttle Balance red clips Details Red Comments Wide NATE, Staggered. Required CGA Therapeutic Exercises Standing Exercises 2 Standing Exercise Name Resisted side-stepping, fwd Resistance yellow Equipment Used T-band Comments increased excursion in side- step with yellow band Other Exercises hurdles Other Exercise Name Hurdles Resistance 5# Comments Fwd, Lateral Neuro Re-Education Treatment Balance Activities Putting Details Standing putting Comments R hand strapped to putter Focus on weight shift, trunk rotation, standing balance PT-OP-T Assessment and Plan Start: 11/10/19 18:02 Freq: Status: Active Protocol: Document 09/09/20 14:30 DCW (Rec: 09/09/20 15:17 DCW [id number]) Physical Therapy Assessment Impairments Impairments Activity Tolerance,Balance, Coordination,Functional Activities,Functional Mobility ,Gait,Pain,Posture,ROM, Sensation,Soft Tissue Mobility ,Strength,Tone,Transfers Goals 4 Custodial Goal (LTG) Pt will be able to perform 10 reps sit to stand with left UE support if needed in 30 sec to improve transition from sit to gait and decrease fall risk by 06/17/2020. 04/18/2020: Pt performs 4 reps sit to stand--1 with left hand support and 3 without UE support in 30 sec. LTG Duration 10/03/20 Tinnetti Impairment high fall risk Short Term Goal (STG) Pt will improve his ability to turn and step up with gait patterns to decrease fall risk . STG Duration Met Cultural Anthropology Professor Goal (LTG) Pt will increase Tinnetti score to at least 24/28 in order to decrease fall risk to low. 04/18/2020: Tinetti score is 13 /28. LTG Duration 10/03/20 6MWT Impairment Pt amb 328 feet during 6MWT Custodial Goal (LTG) A walking speed of <1.97 can indicate an increased risk of further functional decline. Pt to ambulate >400' during 6 MWT in order to decrease his risk. 04/18/2020: Pt gait trains 218 feet in 6 minutes with QC LTG Duration 10/03/20 - Improving (385') Gait Impairment gait deviations Short Term Goal (STG) Pt will be able to amb for 20 ft with minimal in-toeing of LLE in order to reduce risk of falls. STG Duration Met Custodial Goal (LTG) Pt will be able to amb for 50 ft without leaning onto LBQC for heavy support in order to reduce fall risk. 04/18/2020: Pt with minimal leaning into QC with gait, but has step-to gait d/t paraplegia and so he does lean into it to clear right foot. LTG Duration 10/03/2020 Progress Towards Goals Progress Towards Goals Progressing Toward Goals,Slow Progress due to Medical Issues Assessment Summary Assessment Pt did well with putting again today, also able to tolerate shuttle balance well today Physical Therapy Plan Frequency and Duration Frequency of Treatment 2x/Week Duration of Treatment 8 weeks Plan of Care Start Date 08/30/20 Plan of Care End Date 10/25/20 Therapeutic Interventions Therapeutic Interventions Balance Training,Gait Training ,Home Exercise Program, Neuromuscular Re-education, Orthotic/Prosthetic Management ,Patient/Caregiver Education, Self-Care/Home Management, Therapeutic Exercises Next Visit Focus/Plan Next Note Type Treatment Note Next Visit Plan Progress gait and other exercises to improve balance and strength
--- NOTE | 2020-09-13 16:18 | PT.OTN ---
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 (09/13/20) Weakness (09/13/20) Physical Therapy Treatment Note PT-OP-A Visit Information Start: 11/10/19 12:59 Freq: Status: Active Protocol: Document 09/13/20 15:15 DCW (Rec: 09/13/20 16:18 DCW [id number]) Out-Patient Physical Therapy Visit Information Visit Information Visit Type Treatment Note Visit Start Time 15:15 Visit Stop Time 16:00 Total Visit Minutes 45 Visit Number 3/7 Number of SCHOOL COUNSELOR Visits 0 Evaluation Information Evaluation Date 11/10/19 PT-OP-B Current Condition Start: 11/10/19 12:59 Freq: Status: Active Protocol: Document 11/10/19 17:38 AMH (Rec: 11/10/19 18:01 AMH [id number]) Current Condition History of Current Condition Onset Date CVA in 2013. Falls x3 & hospitalization 06/22/19, and August 2019 Current Complaints dec activitiy tolerance, poor balance, dec amb speed History of Current Condition Pt is a 63 y.o. 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 Pt has been seen at [facility] for PT, OT, ST over the past few years. He was recently hospitalized ( 06/22/19) for 3 falls in the same day. And then again in August 2019. The patient had very low sodium levels at the time One fall occured in the shower and 2 occured getting out of bed. Since recent hospitalization, daughter reports she has seen a decline in his function in dec cognitive processing. Pt has dec stamina with walking, is more unstable on his feet, has been shuffling more and appears to have less coordination. Daughter belives he fell on 06/22/19 was due to pain in his LLE (from RA). Pt reports no sensation on RLE. He has a hx of Rhemuatoid Arthritis, blood clots, depression, diabetes mellitus I, falls, depression, heart attack, pacemaker, neuropathy, and R elbow surgery. Pt amb w a large base quad cane and DF assist AFO. Pt has had multiple falls prior to most recent hospitalization that normally occur with transitional movements like getting out of bed or into a car, prabhu when he is tired. There is an incline and gravel on their driveway which his daughter believes may be contributing to the falls with car transfers. Pt has required 24/7 caregiving since his CVA in 2013, which is provided by his daughter during the daytime and his at nighttime. Prior Treatments and Tests PT, OT, ST. Has seen improvements with PT, but discontinued d/t plateauing of function. Future Testing and Treatments Planned OT and speech at [facility] Treatment Goals Patient/Caregiver Goals To improve walking endurance, balance and to decrease fall risk. Prior Functional Status Baseline Function- ADL's Needs Assist Baseline Function- Mobility Needs Assist Baseline Function- Gait LBQC, AFO Baseline Function- Work/School NA Baseline Function- Recreation/Hobbies Able to ride in car with his daughter to drop of grandchildren at school. Able to amb short distances in the community w/LBQC. Able to use motorized carts at larger stores PT-OP-C Subjective Start: 11/10/19 12:59 Freq: Status: Active Protocol: Document 09/13/20 15:15 DCW (Rec: 09/13/20 16:18 DCW [id number]) OP-PT Subjective Patient Comments Patient Comments Pt not wearing shoulder brace today. PT-OP-D Balance Start: 11/10/19 18:02 Freq: Status: Active Protocol: Document 08/30/20 16:45 DCW (Rec: 08/30/20 17:17 DCW [id number]) Tinetti Balance Assessment Sitting Balance Sitting Balance Steady, safe Arising from Chair Ability to Arise Able, uses arms to help Attempts to Arise Arises on 1st attempt Standing Balance Immediate Standing Balance Steady w/o support Standing Balance Narrow stance w/o support Nudged Response Steady Standing with Eyes Closed Steady Turning Step Pattern Turning 360 Degrees Discontinuous steps Stability Turning 360 Degrees Steady Sitting Down Sitting Down Safe, steady Gait and Step Initiation of Gait No hesitancy Right Foot Step Length Does pass stance foot Right Foot Step Height Completely clears floor Left Foot Step Length Does not pass stance foot Left Foot Step Height Completely clears floor Step Description Step Symmetry Step length not equal Step Continuity Stopping or discontinuity Gait Description Path Description Mild/moderate deviation Trunk Description Marked sway or uses aide Walking Stance Heels together Scoring and Interpretation Tinetti Composite Score (points) 20 Interpretation of Scores At risk for falls (19-24) Tinetti Impairment Rating from Composite 20 to <40% Impaired (Score 17- Score 22) PT-OP-E Functional Tests Start: 11/10/19 18:02 Freq: Status: Active Protocol: Document 08/30/20 16:45 DCW (Rec: 08/30/20 17:17 DCW [id number]) Functional Tests 6 Minute Walk Test Distance 372 Device Used LBQC Comments 1.03 ft/sec Timed Up and Go (TUG) Score 26.6 sec /c LBQC Comments 3-trial average (29.67, 25.38, 24,61) TUG Impairment Rating 100% Impaired (Score 20) PT-OP-G Mobility & Gait Start: 11/10/19 18:02 Freq: Status: Active Protocol: Document 11/10/19 18:02 AMH (Rec: 11/10/19 18:05 AMH [email or web address]) OP Mobility Evaluation Bed Mobility Rolling able to roll in bed ind Supine to and from Sit able to transfer supine to and from sit ind Transfers Sit to Stand Heavy use of LUE to push up from chair. Pt had some instability with rising from chair. OP Gait Assessment Gait Gait Assistance Required: Standby Assistance Assistive Devices Assistive Device Large Based Quad Cane Orthotic/Prosthetic Devices or Brace: Yes Gait Deviations General Gait Pattern Antalgic,Decreased Stride Length,Decreased Feet Clearance,Narrow Based Gait Factors Limiting Gait Function Factors Limiting Gait Function Decreased Activity Tolerance, Decreased Strength,Poor Balance,Poor Safety Awareness PT-OP-M Strength Start: 11/10/19 18:02 Freq: Status: Active Protocol: Document 08/03/20 14:30 DCW (Rec: 08/03/20 15:00 DCW [id number]) Hip Strength Hip Manual Muscle Testing Right Flexion (L2) 3- Fair- Extension (S1) 2+ Poor+ Abduction 2 Poor Adduction 2+ Poor+ External Rotation 2 Poor Internal Rotation 2 Poor Left Flexion (L2) 3+ Fair+ Extension (S1) 4 Good Abduction 3+ Fair+ Adduction 4- Good- External Rotation 4 Good Internal Rotation 4 Good Knee Strength Knee Manual Muscle Testing Right Flexion (S2) 2 Poor Extension (L3) 3- Fair- PT-OP-Q Treatments Start: 11/10/19 18:02 Freq: Status: Active Protocol: Document 09/13/20 15:15 DCW (Rec: 09/13/20 16:18 DCW [id number]) Cardio Equipment Recumbent Elliptical (Biodex) Duration (Minutes) 5 Resistance 4 Seat Position 9 Gym Equipment Shuttle Recovery Unilateral Squats Details Unilateral Squats Resistance 37# Shuttle Recovery Platform Stable Reps/Time x25 Bilateral Squats Details Bilateral Squats Resistance 62# Shuttle Recovery Platform Stable Reps/Time x30 Shuttle Balance red clips Details Red Comments Wide NATE, Staggered. Required CGA Therapeutic Exercises Standing Exercises 2 Standing Exercise Name Resisted side-stepping, fwd Resistance Green Equipment Used T-band Comments increased excursion in side- step with yellow band Other Exercises hurdles Other Exercise Name Hurdles Resistance 5# Comments Fwd, Lateral PT-OP-T Assessment and Plan Start: 11/10/19 18:02 Freq: Status: Active Protocol: Document 09/13/20 15:15 DCW (Rec: 09/13/20 16:18 DCW [id number]) Physical Therapy Assessment Impairments Impairments Activity Tolerance,Balance, Coordination,Functional Activities,Functional Mobility ,Gait,Pain,Posture,ROM, Sensation,Soft Tissue Mobility ,Strength,Tone,Transfers Goals 4 Mcfp Goal (LTG) Pt will be able to perform 10 reps sit to stand with left UE support if needed in 30 sec to improve transition from sit to gait and decrease fall risk by 06/17/2020. 04/18/2020: Pt performs 4 reps sit to stand--1 with left hand support and 3 without UE support in 30 sec. LTG Duration 10/03/20 Tinnetti Impairment high fall risk Short Term Goal (STG) Pt will improve his ability to turn and step up with gait patterns to decrease fall risk . STG Duration Met Territory Sales Manager Medical Goal (LTG) Pt will increase Tinnetti score to at least 24/28 in order to decrease fall risk to low. 04/18/2020: Tinetti score is 13 /28. LTG Duration 10/03/20 6MWT Impairment Pt amb 328 feet during 6MWT Territory Sales Manager Medical Goal (LTG) A walking speed of <1.97 can indicate an increased risk of further functional decline. Pt to ambulate >400' during 6 MWT in order to decrease his risk. 04/18/2020: Pt gait trains 218 feet in 6 minutes with QC LTG Duration 10/03/20 - Improving (385') Gait Impairment gait deviations Short Term Goal (STG) Pt will be able to amb for 20 ft with minimal in-toeing of LLE in order to reduce risk of falls. STG Duration Met Mcfp Goal (LTG) Pt will be able to amb for 50 ft without leaning onto LBQC for heavy support in order to reduce fall risk. 04/18/2020: Pt with minimal leaning into QC with gait, but has step-to gait d/t paraplegia and so he does lean into it to clear right foot. LTG Duration 10/03/2020 Progress Towards Goals Progress Towards Goals Progressing Toward Goals,Slow Progress due to Medical Issues Assessment Summary Assessment Pt tolerated treatment very well today, fewer rest breaks or water request today. Pt appeared to be more motivated to participate today as well. Physical Therapy Plan Frequency and Duration Frequency of Treatment 2x/Week Duration of Treatment 8 weeks Plan of Care Start Date 08/30/20 Plan of Care End Date 10/25/20 Therapeutic Interventions Therapeutic Interventions Balance Training,Gait Training ,Home Exercise Program, Neuromuscular Re-education, Orthotic/Prosthetic Management ,Patient/Caregiver Education, Self-Care/Home Management, Therapeutic Exercises Next Visit Focus/Plan Next Note Type Treatment Note Next Visit Plan Progress gait and other exercises to improve balance and strength
--- NOTE | 2020-09-15 14:30 | PT.OTN ---
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 (09/15/20) Weakness (09/15/20) Physical Therapy Treatment Note PT-OP-A Visit Information Start: 11/10/19 12:59 Freq: Status: Active Protocol: Document 09/15/20 13:55 DCW (Rec: 09/15/20 14:30 DCW [id number]) Out-Patient Physical Therapy Visit Information Visit Information Visit Type Treatment Note Visit Start Time 13:55 Visit Stop Time 14:30 Total Visit Minutes 35 Visit Number 4/7 Number of [employer] Visits 0 Evaluation Information Evaluation Date 11/10/19 PT-OP-B Current Condition Start: 11/10/19 12:59 Freq: Status: Active Protocol: Document 11/10/19 17:38 AMH (Rec: 11/10/19 18:01 AMH [email or web address]) Current Condition History of Current Condition Onset Date CVA in 2013. Falls x3 & hospitalization 06/22/19, and August 2019 Current Complaints dec activitiy tolerance, poor balance, dec amb speed History of Current Condition Pt is a 63 y.o. 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 Pt has been seen at [facility] OP for PT, OT, ST over the past few years. He was recently hospitalized ( 06/22/19) for 3 falls in the same day. And then again in August 2019. The patient had very low sodium levels at the time One fall occured in the shower and 2 occured getting out of bed. Since recent hospitalization, daughter reports she has seen a decline in his function in dec cognitive processing. Pt has dec stamina with walking, is more unstable on his feet, has been shuffling more and appears to have less coordination. Daughter belives he fell on 06/22/19 was due to pain in his LLE (from RA). Pt reports no sensation on RLE. He has a hx of Rhemuatoid Arthritis, blood clots, depression, diabetes mellitus I, falls, depression, heart attack, pacemaker, neuropathy, and R elbow surgery. Pt amb w a large base quad cane and DF assist AFO. Pt has had multiple falls prior to most recent hospitalization that normally occur with transitional movements like getting out of bed or into a car, prabhu when he is tired. There is an incline and gravel on their driveway which his daughter believes may be contributing to the falls with car transfers. Pt has required 24/7 caregiving since his CVA in 2013, which is provided by his daughter during the daytime and his at nighttime. Prior Treatments and Tests PT, OT, ST. Has seen improvements with PT, but discontinued d/t plateauing of function. Future Testing and Treatments Planned OT and speech at [facility] Treatment Goals Patient/Caregiver Goals To improve walking endurance, balance and to decrease fall risk. Prior Functional Status Baseline Function- ADL's Needs Assist Baseline Function- Mobility Needs Assist Baseline Function- Gait LBQC, AFO Baseline Function- Work/School NA Baseline Function- Recreation/Hobbies Able to ride in car with his daughter to drop of grandchildren at school. Able to amb short distances in the community w/LBQC. Able to use motorized carts at larger stores PT-OP-C Subjective Start: 11/10/19 12:59 Freq: Status: Active Protocol: Document 09/15/20 13:55 DCW (Rec: 09/15/20 14:30 DCW [id number]) OP-PT Subjective Patient Comments Patient Comments Pt's reports that his arthritis seems to be bothering him today, he's moving more slowly than usual. PT-OP-D Balance Start: 11/10/19 18:02 Freq: Status: Active Protocol: Document 08/30/20 16:45 DCW (Rec: 08/30/20 17:17 DCW [id number]) Tinetti Balance Assessment Sitting Balance Sitting Balance Steady, safe Arising from Chair Ability to Arise Able, uses arms to help Attempts to Arise Arises on 1st attempt Standing Balance Immediate Standing Balance Steady w/o support Standing Balance Narrow stance w/o support Nudged Response Steady Standing with Eyes Closed Steady Turning Step Pattern Turning 360 Degrees Discontinuous steps Stability Turning 360 Degrees Steady Sitting Down Sitting Down Safe, steady Gait and Step Initiation of Gait No hesitancy Right Foot Step Length Does pass stance foot Right Foot Step Height Completely clears floor Left Foot Step Length Does not pass stance foot Left Foot Step Height Completely clears floor Step Description Step Symmetry Step length not equal Step Continuity Stopping or discontinuity Gait Description Path Description Mild/moderate deviation Trunk Description Marked sway or uses aide Walking Stance Heels together Scoring and Interpretation Tinetti Composite Score (points) 20 Interpretation of Scores At risk for falls (19-24) Tinetti Impairment Rating from Composite 20 to <40% Impaired (Score 17- Score 22) PT-OP-E Functional Tests Start: 11/10/19 18:02 Freq: Status: Active Protocol: Document 08/30/20 16:45 DCW (Rec: 08/30/20 17:17 DCW [id number]) Functional Tests 6 Minute Walk Test Distance 372 Device Used LBQC Comments 1.03 ft/sec Timed Up and Go (TUG) Score 26.6 sec /c LBQC Comments 3-trial average (29.67, 25.38, 24,61) TUG Impairment Rating 100% Impaired (Score 20) PT-OP-G Mobility & Gait Start: 11/10/19 18:02 Freq: Status: Active Protocol: Document 11/10/19 18:02 AMH (Rec: 11/10/19 18:05 AMH [email or web address]) OP Mobility Evaluation Bed Mobility Rolling able to roll in bed ind Supine to and from Sit able to transfer supine to and from sit ind Transfers Sit to Stand Heavy use of LUE to push up from chair. Pt had some instability with rising from chair. OP Gait Assessment Gait Gait Assistance Required: Standby Assistance Assistive Devices Assistive Device Large Based Quad Cane Orthotic/Prosthetic Devices or Brace: Yes Gait Deviations General Gait Pattern Antalgic,Decreased Stride Length,Decreased Feet Clearance,Narrow Based Gait Factors Limiting Gait Function Factors Limiting Gait Function Decreased Activity Tolerance, Decreased Strength,Poor Balance,Poor Safety Awareness PT-OP-M Strength Start: 11/10/19 18:02 Freq: Status: Active Protocol: Document 08/03/20 14:30 DCW (Rec: 08/03/20 15:00 DCW [id number]) Hip Strength Hip Manual Muscle Testing Right Flexion (L2) 3- Fair- Extension (S1) 2+ Poor+ Abduction 2 Poor Adduction 2+ Poor+ External Rotation 2 Poor Internal Rotation 2 Poor Left Flexion (L2) 3+ Fair+ Extension (S1) 4 Good Abduction 3+ Fair+ Adduction 4- Good- External Rotation 4 Good Internal Rotation 4 Good Knee Strength Knee Manual Muscle Testing Right Flexion (S2) 2 Poor Extension (L3) 3- Fair- PT-OP-Q Treatments Start: 11/10/19 18:02 Freq: Status: Active Protocol: Document 09/15/20 13:55 DCW (Rec: 09/15/20 14:30 DCW [id number]) Cardio Equipment Recumbent Elliptical (Biodex) Duration (Minutes) 5 Resistance 4 Seat Position 10 Gym Equipment Shuttle Balance red clips Details Red Comments Wide NATE, Staggered. Required CGA Neuro Re-Education Treatment Balance Activities Putting Details Standing putting Comments R hand strapped to putter Focus on weight shift, trunk rotation, standing balance PT-OP-T Assessment and Plan Start: 11/10/19 18:02 Freq: Status: Active Protocol: Document 09/15/20 13:55 DCW (Rec: 09/15/20 14:30 DCW [id number]) Physical Therapy Assessment Impairments Impairments Activity Tolerance,Balance, Coordination,Functional Activities,Functional Mobility ,Gait,Pain,Posture,ROM, Sensation,Soft Tissue Mobility ,Strength,Tone,Transfers Goals 4 Fdc Goal (LTG) Pt will be able to perform 10 reps sit to stand with left UE support if needed in 30 sec to improve transition from sit to gait and decrease fall risk by 06/17/2020. 04/18/2020: Pt performs 4 reps sit to stand--1 with left hand support and 3 without UE support in 30 sec. LTG Duration 10/03/20 Tinnetti Impairment high fall risk Short Term Goal (STG) Pt will improve his ability to turn and step up with gait patterns to decrease fall risk . STG Duration Met Fdc Goal (LTG) Pt will increase Tinnetti score to at least 24/28 in order to decrease fall risk to low. 04/18/2020: Tinetti score is 13 /28. LTG Duration 10/03/20 6MWT Impairment Pt amb 328 feet during 6MWT Fdc Goal (LTG) A walking speed of <1.97 can indicate an increased risk of further functional decline. Pt to ambulate >400' during 6 MWT in order to decrease his risk. 04/18/2020: Pt gait trains 218 feet in 6 minutes with QC LTG Duration 10/03/20 - Improving (385') Gait Impairment gait deviations Short Term Goal (STG) Pt will be able to amb for 20 ft with minimal in-toeing of LLE in order to reduce risk of falls. STG Duration Met Fdc Goal (LTG) Pt will be able to amb for 50 ft without leaning onto LBQC for heavy support in order to reduce fall risk. 04/18/2020: Pt with minimal leaning into QC with gait, but has step-to gait d/t paraplegia and so he does lean into it to clear right foot. LTG Duration 10/03/2020 Progress Towards Goals Progress Towards Goals Progressing Toward Goals,Slow Progress due to Medical Issues Assessment Summary Assessment Pt was fairly slow moving today, but is clearly more motivated to participate and interested in therapy since addition of putting to wokr on movement and balance. Physical Therapy Plan Frequency and Duration Frequency of Treatment 2x/Week Duration of Treatment 8 weeks Plan of Care Start Date 08/30/20 Plan of Care End Date 10/25/20 Therapeutic Interventions Therapeutic Interventions Balance Training,Gait Training ,Home Exercise Program, Neuromuscular Re-education, Orthotic/Prosthetic Management ,Patient/Caregiver Education, Self-Care/Home Management, Therapeutic Exercises Next Visit Focus/Plan Next Note Type Treatment Note Next Visit Plan Progress gait and other exercises to improve balance and strength
--- NOTE | 2020-09-28 17:00 | PT.OTN ---
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 (09/28/20) Weakness (09/28/20) Physical Therapy Treatment Note PT-OP-A Visit Information Start: 11/10/19 12:59 Freq: Status: Active Protocol: Document 09/28/20 16:51 AW (Rec: 09/28/20 17:00 AW [email or web address]) Out-Patient Physical Therapy Visit Information Visit Information Visit Type Treatment Note Visit Start Time 16:01 Visit Stop Time 16:47 Total Visit Minutes 46 Evaluation Information Evaluation Date 11/10/19 PT-OP-B Current Condition Start: 11/10/19 12:59 Freq: Status: Active Protocol: Document 11/10/19 17:38 AMH (Rec: 11/10/19 18:01 AMH [email or web address]) Current Condition History of Current Condition Onset Date CVA in 2013. Falls x3 & hospitalization 06/22/19, and August 2019 Current Complaints dec activitiy tolerance, poor balance, dec amb speed History of Current Condition Pt is a 63 y.o. 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 Pt has been seen at [facility] OP for PT, OT, ST over the past few years. He was recently hospitalized ( 06/22/19) for 3 falls in the same day. And then again in August 2019. The patient had very low sodium levels at the time One fall occured in the shower and 2 occured getting out of bed. Since recent hospitalization, daughter reports she has seen a decline in his function in dec cognitive processing. Pt has dec stamina with walking, is more unstable on his feet, has been shuffling more and appears to have less coordination. Daughter saraives he fell on 06/22/19 was due to pain in his LLE (from RA). Pt reports no sensation on RLE. He has a hx of Rhemuatoid Arthritis, blood clots, depression, diabetes mellitus I, falls, depression, heart attack, pacemaker, neuropathy, and R elbow surgery. Pt amb w a large base quad cane and DF assist AFO. Pt has had multiple falls prior to most recent hospitalization that normally occur with transitional movements like getting out of bed or into a car, prabhu when he is tired. There is an incline and gravel on their driveway which his daughter believes may be contributing to the falls with car transfers. Pt has required 24/7 caregiving since his CVA in 2013, which is provided by his daughter during the daytime and his at nighttime. Prior Treatments and Tests PT, OT, ST. Has seen improvements with PT, but discontinued d/t plateauing of function. Future Testing and Treatments Planned OT and speech at [facility] Treatment Goals Patient/Caregiver Goals To improve walking endurance, balance and to decrease fall risk. Prior Functional Status Baseline Function- ADL's Needs Assist Baseline Function- Mobility Needs Assist Baseline Function- Gait LBQC, AFO Baseline Function- Work/School NA Baseline Function- Recreation/Hobbies Able to ride in car with his daughter to drop of grandchildren at school. Able to amb short distances in the community w/LBQC. Able to use motorized carts at larger stores PT-OP-C Subjective Start: 11/10/19 12:59 Freq: Status: Active Protocol: Document 09/28/20 16:51 AW (Rec: 09/28/20 17:00 AW [email or web address]) OP-PT Subjective Patient Comments Patient Comments Pt not wearing shoulder brace today. PT-OP-D Balance Start: 11/10/19 18:02 Freq: Status: Active Protocol: Document 08/30/20 16:45 DCW (Rec: 08/30/20 17:17 DCW [id number]) Tinetti Balance Assessment Sitting Balance Sitting Balance Steady, safe Arising from Chair Ability to Arise Able, uses arms to help Attempts to Arise Arises on 1st attempt Standing Balance Immediate Standing Balance Steady w/o support Standing Balance Narrow stance w/o support Nudged Response Steady Standing with Eyes Closed Steady Turning Step Pattern Turning 360 Degrees Discontinuous steps Stability Turning 360 Degrees Steady Sitting Down Sitting Down Safe, steady Gait and Step Initiation of Gait No hesitancy Right Foot Step Length Does pass stance foot Right Foot Step Height Completely clears floor Left Foot Step Length Does not pass stance foot Left Foot Step Height Completely clears floor Step Description Step Symmetry Step length not equal Step Continuity Stopping or discontinuity Gait Description Path Description Mild/moderate deviation Trunk Description Marked sway or uses aide Walking Stance Heels together Scoring and Interpretation Tinetti Composite Score (points) 20 Interpretation of Scores At risk for falls (19-24) Tinetti Impairment Rating from Composite 20 to <40% Impaired (Score 17- Score 22) PT-OP-E Functional Tests Start: 11/10/19 18:02 Freq: Status: Active Protocol: Document 08/30/20 16:45 DCW (Rec: 08/30/20 17:17 DCW [id number]) Functional Tests 6 Minute Walk Test Distance 372 Device Used LBQC Comments 1.03 ft/sec Timed Up and Go (TUG) Score 26.6 sec /c LBQC Comments 3-trial average (29.67, 25.38, 24,61) TUG Impairment Rating 100% Impaired (Score 20) PT-OP-G Mobility & Gait Start: 11/10/19 18:02 Freq: Status: Active Protocol: Document 11/10/19 18:02 AMH (Rec: 11/10/19 18:05 AMH [email or web address]) OP Mobility Evaluation Bed Mobility Rolling able to roll in bed ind Supine to and from Sit able to transfer supine to and from sit ind Transfers Sit to Stand Heavy use of LUE to push up from chair. Pt had some instability with rising from chair. OP Gait Assessment Gait Gait Assistance Required: Standby Assistance Assistive Devices Assistive Device Large Based Quad Cane Orthotic/Prosthetic Devices or Brace: Yes Gait Deviations General Gait Pattern Antalgic,Decreased Stride Length,Decreased Feet Clearance,Narrow Based Gait Factors Limiting Gait Function Factors Limiting Gait Function Decreased Activity Tolerance, Decreased Strength,Poor Balance,Poor Safety Awareness PT-OP-M Strength Start: 11/10/19 18:02 Freq: Status: Active Protocol: Document 08/03/20 14:30 DCW (Rec: 08/03/20 15:00 DCW [id number]) Hip Strength Hip Manual Muscle Testing Right Flexion (L2) 3- Fair- Extension (S1) 2+ Poor+ Abduction 2 Poor Adduction 2+ Poor+ External Rotation 2 Poor Internal Rotation 2 Poor Left Flexion (L2) 3+ Fair+ Extension (S1) 4 Good Abduction 3+ Fair+ Adduction 4- Good- External Rotation 4 Good Internal Rotation 4 Good Knee Strength Knee Manual Muscle Testing Right Flexion (S2) 2 Poor Extension (L3) 3- Fair- PT-OP-Q Treatments Start: 11/10/19 18:02 Freq: Status: Active Protocol: Document 09/28/20 16:51 AW (Rec: 09/28/20 17:00 AW [email or web address]) Cardio Equipment Recumbent Elliptical (Siine) Duration (Minutes) 6 Resistance 4 Seat Position 10 Gym Equipment Shuttle Recovery Unilateral Squats Details Unilateral Squats Resistance 37# Shuttle Recovery Platform Stable Reps/Time x20 Bilateral Squats Details Bilateral Squats Resistance 62# Shuttle Recovery Platform Stable Reps/Time x35 Shuttle Balance red clips Details Red Comments Wide NATE, narrowed incrementally. Staggered. Required CGA. Therapeutic Exercises Standing Exercises 1 Standing Exercise Name Toe-taps Side bilateral Equipment Used 6 step Comments unilateral x 10; alternating x 10; lateral x 10 Other Exercises hurdles Other Exercise Name Hurdles Resistance 4# Comments Fwd Neuro Re-Education Treatment Balance Activities Putting Details Standing putting Comments R hand strapped to putter Focus on weight shift, trunk rotation, standing balance PT-OP-T Assessment and Plan Start: 11/10/19 18:02 Freq: Status: Active Protocol: Document 09/28/20 16:51 AW (Rec: 09/28/20 17:00 AW [email or web address]) Physical Therapy Assessment Impairments Impairments Activity Tolerance,Balance, Coordination,Functional Activities,Functional Mobility ,Gait,Pain,Posture,ROM, Sensation,Soft Tissue Mobility ,Strength,Tone,Transfers Goals 4 Senior Living Goal (LTG) Pt will be able to perform 10 reps sit to stand with left UE support if needed in 30 sec to improve transition from sit to gait and decrease fall risk by 06/17/2020. 04/18/2020: Pt performs 4 reps sit to stand--1 with left hand support and 3 without UE support in 30 sec. LTG Duration 10/03/20 Tinnetti Impairment high fall risk Short Term Goal (STG) Pt will improve his ability to turn and step up with gait patterns to decrease fall risk . STG Duration Met Senior Living Goal (LTG) Pt will increase Tinnetti score to at least 24/28 in order to decrease fall risk to low. 04/18/2020: Tinetti score is 13 /28. LTG Duration 10/03/20 6MWT Impairment Pt amb 328 feet during 6MWT Senior Living Goal (LTG) A walking speed of <1.97 can indicate an increased risk of further functional decline. Pt to ambulate >400' during 6 MWT in order to decrease his risk. 04/18/2020: Pt gait trains 218 feet in 6 minutes with QC LTG Duration 10/03/20 - Improving (385') Gait Impairment gait deviations Short Term Goal (STG) Pt will be able to amb for 20 ft with minimal in-toeing of LLE in order to reduce risk of falls. STG Duration Met [place] Goal (LTG) Pt will be able to amb for 50 ft without leaning onto LBQC for heavy support in order to reduce fall risk. 04/18/2020: Pt with minimal leaning into QC with gait, but has step-to gait d/t paraplegia and so he does lean into it to clear right foot. LTG Duration 10/03/2020 Progress Towards Goals Progress Towards Goals Progressing Toward Goals,Slow Progress due to Medical Issues Assessment Summary Assessment Pt participated with good effort today. Very few rest breaks, but pt did have spasms in right anterior thigh which limited hurdles work. Physical Therapy Plan Frequency and Duration Frequency of Treatment 2x/Week Duration of Treatment 8 weeks Plan of Care Start Date 08/30/20 Plan of Care End Date 10/25/20 Therapeutic Interventions Therapeutic Interventions Balance Training,Gait Training ,Home Exercise Program, Neuromuscular Re-education, Orthotic/Prosthetic Management ,Patient/Caregiver Education, Self-Care/Home Management, Therapeutic Exercises Next Visit Focus/Plan Next Note Type Treatment Note Next Visit Plan Progress gait and other exercises to improve balance and strength
--- NOTE | 2020-10-05 14:31 | PT.OTN ---
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 (10/05/20) Weakness (10/05/20) Physical Therapy Treatment Note PT-OP-A Visit Information Start: 11/10/19 12:59 Freq: Status: Active Protocol: Document 10/05/20 13:41 SAK (Rec: 10/05/20 14:31 SAK [id number]) Out-Patient Physical Therapy Visit Information Visit Information Visit Type Treatment Note Visit Start Time 16:01 Visit Stop Time 16:47 Total Visit Minutes 46 Visit Number 6/7 Evaluation Information Evaluation Date 11/10/19 PT-OP-B Current Condition Start: 11/10/19 12:59 Freq: Status: Active Protocol: Document 11/10/19 17:38 AMH (Rec: 11/10/19 18:01 AMH [email or web address]) Current Condition History of Current Condition Onset Date CVA in 2013. Falls x3 & hospitalization 06/22/19, and August 2019 Current Complaints dec activitiy tolerance, poor balance, dec amb speed History of Current Condition Pt is a 63 y.o. 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 Pt has been seen at [facility] for PT, OT, ST over the past few years. He was recently hospitalized ( 06/22/19) for 3 falls in the same day. And then again in August 2019. The patient had very low sodium levels at the time One fall occured in the shower and 2 occured getting out of bed. Since recent hospitalization, daughter reports she has seen a decline in his function in dec cognitive processing. Pt has dec stamina with walking, is more unstable on his feet, has been shuffling more and appears to have less coordination. Daughter carlos he fell on 06/22/19 was due to pain in his LLE (from RA). Pt reports no sensation on RLE. He has a hx of Rhemuatoid Arthritis, blood clots, depression, diabetes mellitus I, falls, depression, heart attack, pacemaker, neuropathy, and R elbow surgery. Pt amb w a large base quad cane and DF assist AFO. Pt has had multiple falls prior to most recent hospitalization that normally occur with transitional movements like getting out of bed or into a car, prabhu when he is tired. There is an incline and gravel on their driveway which his daughter believes may be contributing to the falls with car transfers. Pt has required 24/7 caregiving since his CVA in 2013, which is provided by his daughter during the daytime and his at nighttime. Prior Treatments and Tests PT, OT, ST. Has seen improvements with PT, but discontinued d/t plateauing of function. Future Testing and Treatments Planned OT and speech at [facility] Treatment Goals Patient/Caregiver Goals To improve walking endurance, balance and to decrease fall risk. Prior Functional Status Baseline Function- ADL's Needs Assist Baseline Function- Mobility Needs Assist Baseline Function- Gait LBQC, AFO Baseline Function- Work/School NA Baseline Function- Recreation/Hobbies Able to ride in car with his daughter to drop of grandchildren at school. Able to amb short distances in the community w/LBQC. Able to use motorized carts at larger stores PT-OP-C Subjective Start: 11/10/19 12:59 Freq: Status: Active Protocol: Document 10/05/20 13:41 SAK (Rec: 10/05/20 14:31 SAK [id number]) OP-PT Subjective Patient Comments Patient Comments No new c/o, energy ok. PT-OP-D Balance Start: 11/10/19 18:02 Freq: Status: Active Protocol: Document 08/30/20 16:45 DCW (Rec: 08/30/20 17:17 DCW [id number]) Tinetti Balance Assessment Sitting Balance Sitting Balance Steady, safe Arising from Chair Ability to Arise Able, uses arms to help Attempts to Arise Arises on 1st attempt Standing Balance Immediate Standing Balance Steady w/o support Standing Balance Narrow stance w/o support Nudged Response Steady Standing with Eyes Closed Steady Turning Step Pattern Turning 360 Degrees Discontinuous steps Stability Turning 360 Degrees Steady Sitting Down Sitting Down Safe, steady Gait and Step Initiation of Gait No hesitancy Right Foot Step Length Does pass stance foot Right Foot Step Height Completely clears floor Left Foot Step Length Does not pass stance foot Left Foot Step Height Completely clears floor Step Description Step Symmetry Step length not equal Step Continuity Stopping or discontinuity Gait Description Path Description Mild/moderate deviation Trunk Description Marked sway or uses aide Walking Stance Heels together Scoring and Interpretation Tinetti Composite Score (points) 20 Interpretation of Scores At risk for falls (19-24) Tinetti Impairment Rating from Composite 20 to <40% Impaired (Score 17- Score 22) PT-OP-E Functional Tests Start: 11/10/19 18:02 Freq: Status: Active Protocol: Document 08/30/20 16:45 DCW (Rec: 08/30/20 17:17 DCW [id number]) Functional Tests 6 Minute Walk Test Distance 372 Device Used LBQC Comments 1.03 ft/sec Timed Up and Go (TUG) Score 26.6 sec /c LBQC Comments 3-trial average (29.67, 25.38, 24,61) TUG Impairment Rating 100% Impaired (Score 20) PT-OP-G Mobility & Gait Start: 11/10/19 18:02 Freq: Status: Active Protocol: Document 11/10/19 18:02 AMH (Rec: 11/10/19 18:05 AMH [email or web address]) OP Mobility Evaluation Bed Mobility Rolling able to roll in bed ind Supine to and from Sit able to transfer supine to and from sit ind Transfers Sit to Stand Heavy use of LUE to push up from chair. Pt had some instability with rising from chair. OP Gait Assessment Gait Gait Assistance Required: Standby Assistance Assistive Devices Assistive Device Large Based Quad Cane Orthotic/Prosthetic Devices or Brace: Yes Gait Deviations General Gait Pattern Antalgic,Decreased Stride Length,Decreased Feet Clearance,Narrow Based Gait Factors Limiting Gait Function Factors Limiting Gait Function Decreased Activity Tolerance, Decreased Strength,Poor Balance,Poor Safety Awareness PT-OP-M Strength Start: 11/10/19 18:02 Freq: Status: Active Protocol: Document 08/03/20 14:30 DCW (Rec: 08/03/20 15:00 DCW [id number]) Hip Strength Hip Manual Muscle Testing Right Flexion (L2) 3- Fair- Extension (S1) 2+ Poor+ Abduction 2 Poor Adduction 2+ Poor+ External Rotation 2 Poor Internal Rotation 2 Poor Left Flexion (L2) 3+ Fair+ Extension (S1) 4 Good Abduction 3+ Fair+ Adduction 4- Good- External Rotation 4 Good Internal Rotation 4 Good Knee Strength Knee Manual Muscle Testing Right Flexion (S2) 2 Poor Extension (L3) 3- Fair- PT-OP-Q Treatments Start: 11/10/19 18:02 Freq: Status: Active Protocol: Document 10/05/20 13:41 SAK (Rec: 10/05/20 14:31 SAK [id number]) Cardio Equipment Recumbent Elliptical (Biodex) Duration (Minutes) 6 Resistance 4 Seat Position 10 Other LE's only Gym Equipment Shuttle Recovery Unilateral Squats Details Unilateral Squats Resistance 37# Shuttle Recovery Platform Stable Reps/Time x20 Bilateral Squats Details Bilateral Squats Resistance 62# Shuttle Recovery Platform Stable Reps/Time x35 Shuttle Balance red clips Details Red Comments Wide NATE, narrowed incrementally. Staggered. Required CGA. Therapeutic Exercises Standing Exercises 1 Standing Exercise Name Toe-taps Side bilateral Equipment Used 6 step Comments unilateral x 10; alternating x 10; lateral x 10 Neuro Re-Education Treatment Balance Activities Putting Details Standing putting Comments R hand strapped to putter Focus on weight shift, trunk rotation, standing balance PT-OP-T Assessment and Plan Start: 11/10/19 18:02 Freq: Status: Active Protocol: Document 10/05/20 13:41 TOLU (Rec: 10/05/20 14:31 [facility] [id number]) Physical Therapy Assessment Impairments Impairments Activity Tolerance,Balance, Coordination,Functional Activities,Functional Mobility ,Gait,Pain,Posture,ROM, Sensation,Soft Tissue Mobility ,Strength,Tone,Transfers Goals [address] Goal (LTG) Pt will be able to perform 10 reps sit to stand with left UE support if needed in 30 sec to improve transition from sit to gait and decrease fall risk by 06/17/2020. 04/18/2020: Pt performs 4 reps sit to stand--1 with left hand support and 3 without UE support in 30 sec. LTG Duration 10/03/20 Tinnetti Impairment high fall risk Short Term Goal (STG) Pt will improve his ability to turn and step up with gait patterns to decrease fall risk . STG Duration Met Mcc Goal (LTG) Pt will increase Tinnetti score to at least 24/28 in order to decrease fall risk to low. 04/18/2020: Tinetti score is 13 /28. LTG Duration 10/03/20 6MWT Impairment Pt amb 328 feet during 6MWT Mcc Goal (LTG) A walking speed of <1.97 can indicate an increased risk of further functional decline. Pt to ambulate >400' during 6 MWT in order to decrease his risk. 04/18/2020: Pt gait trains 218 feet in 6 minutes with QC LTG Duration 10/03/20 - Improving (385') Gait Impairment gait deviations Short Term Goal (STG) Pt will be able to amb for 20 ft with minimal in-toeing of LLE in order to reduce risk of falls. STG Duration Met Trial Court Judge Goal (LTG) Pt will be able to amb for 50 ft without leaning onto LBQC for heavy support in order to reduce fall risk. 04/18/2020: Pt with minimal leaning into QC with gait, but has step-to gait d/t paraplegia and so he does lean into it to clear right foot. LTG Duration 10/03/2020 Progress Towards Goals Progress Towards Goals Progressing Toward Goals,Slow Progress due to Medical Issues Assessment Summary Assessment Patient c/o back pain at end of putting, knee pain during single leg press right. Physical Therapy Plan Frequency and Duration Frequency of Treatment 2x/Week Duration of Treatment 8 weeks Plan of Care Start Date 08/30/20 Plan of Care End Date 10/25/20 Therapeutic Interventions Therapeutic Interventions Balance Training,Gait Training ,Home Exercise Program, Neuromuscular Re-education, Orthotic/Prosthetic Management ,Patient/Caregiver Education, Self-Care/Home Management, Therapeutic Exercises Next Visit Focus/Plan Next Note Type Treatment Note Next Visit Plan Continue to progress with gait , ther ex per POC.
--- NOTE | 2020-10-07 12:53 | PT.OTN ---
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 (10/07/20) Weakness (10/07/20) Physical Therapy Treatment Note PT-OP-A Visit Information Start: 11/10/19 12:59 Freq: Status: Active Protocol: Document 10/07/20 12:03 DCW (Rec: 10/07/20 12:53 DCW [id number]) Out-Patient Physical Therapy Visit Information Visit Information Visit Type Progress Note Visit Start Time 12:03 Visit Stop Time 12:45 Total Visit Minutes 42 Visit Number 05/10 Evaluation Information Evaluation Date 11/10/19 PT-OP-B Current Condition Start: 11/10/19 12:59 Freq: Status: Active Protocol: Document 11/10/19 17:38 AMH (Rec: 11/10/19 18:01 AMH [id number]) Current Condition History of Current Condition Onset Date CVA in 2013. Falls x3 & hospitalization 06/22/19, and August 2019 Current Complaints dec activitiy tolerance, poor balance, dec amb speed History of Current Condition Pt is a 63 y.o. 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 Pt has been seen at [facility] OP for PT, OT, ST over the past few years. He was recently hospitalized ( 06/22/19) for 3 falls in the same day. And then again in August 2019. The patient had very low sodium levels at the time One fall occured in the shower and 2 occured getting out of bed. Since recent hospitalization, daughter reports she has seen a decline in his function in dec cognitive processing. Pt has dec stamina with walking, is more unstable on his feet, has been shuffling more and appears to have less coordination. Daughter carlos he fell on 06/22/19 was due to pain in his LLE (from RA). Pt reports no sensation on RLE. He has a hx of Rhemuatoid Arthritis, blood clots, depression, diabetes mellitus I, falls, depression, heart attack, pacemaker, neuropathy, and R elbow surgery. Pt amb w a large base quad cane and DF assist AFO. Pt has had multiple falls prior to most recent hospitalization that normally occur with transitional movements like getting out of bed or into a car, prabhu when he is tired. There is an incline and gravel on their driveway which his daughter believes may be contributing to the falls with car transfers. Pt has required 24/7 caregiving since his CVA in 2013, which is provided by his daughter during the daytime and his at nighttime. Prior Treatments and Tests PT, OT, ST. Has seen improvements with PT, but discontinued d/t plateauing of function. Future Testing and Treatments Planned OT and speech at [facility] Treatment Goals Patient/Caregiver Goals To improve walking endurance, balance and to decrease fall risk. Prior Functional Status Baseline Function- ADL's Needs Assist Baseline Function- Mobility Needs Assist Baseline Function- Gait LBQC, AFO Baseline Function- Work/School NA Baseline Function- Recreation/Hobbies Able to ride in car with his daughter to drop of grandchildren at school. Able to amb short distances in the community w/LBQC. Able to use motorized carts at larger stores PT-OP-C Subjective Start: 11/10/19 12:59 Freq: Status: Active Protocol: Document 10/07/20 12:03 DCW (Rec: 10/07/20 12:53 DCW [id number]) OP-PT Subjective Patient Comments Patient Comments Pt moving a little better today. PT-OP-D Balance Start: 11/10/19 18:02 Freq: Status: Active Protocol: Document 08/30/20 16:45 DCW (Rec: 08/30/20 17:17 DCW [id number]) Tinetti Balance Assessment Sitting Balance Sitting Balance Steady, safe Arising from Chair Ability to Arise Able, uses arms to help Attempts to Arise Arises on 1st attempt Standing Balance Immediate Standing Balance Steady w/o support Standing Balance Narrow stance w/o support Nudged Response Steady Standing with Eyes Closed Steady Turning Step Pattern Turning 360 Degrees Discontinuous steps Stability Turning 360 Degrees Steady Sitting Down Sitting Down Safe, steady Gait and Step Initiation of Gait No hesitancy Right Foot Step Length Does pass stance foot Right Foot Step Height Completely clears floor Left Foot Step Length Does not pass stance foot Left Foot Step Height Completely clears floor Step Description Step Symmetry Step length not equal Step Continuity Stopping or discontinuity Gait Description Path Description Mild/moderate deviation Trunk Description Marked sway or uses aide Walking Stance Heels together Scoring and Interpretation Tinetti Composite Score (points) 20 Interpretation of Scores At risk for falls (19-24) Tinetti Impairment Rating from Composite 20 to <40% Impaired (Score 17- Score 22) PT-OP-E Functional Tests Start: 11/10/19 18:02 Freq: Status: Active Protocol: Document 08/30/20 16:45 DCW (Rec: 08/30/20 17:17 DCW [id number]) Functional Tests 6 Minute Walk Test Distance 372 Device Used LBQC Comments 1.03 ft/sec Timed Up and Go (TUG) Score 26.6 sec /c LBQC Comments 3-trial average (29.67, 25.38, 24,61) TUG Impairment Rating 100% Impaired (Score 20) PT-OP-G Mobility & Gait Start: 11/10/19 18:02 Freq: Status: Active Protocol: Document 11/10/19 18:02 AMH (Rec: 11/10/19 18:05 AMH [email or web address]) OP Mobility Evaluation Bed Mobility Rolling able to roll in bed ind Supine to and from Sit able to transfer supine to and from sit ind Transfers Sit to Stand Heavy use of LUE to push up from chair. Pt had some instability with rising from chair. OP Gait Assessment Gait Gait Assistance Required: Standby Assistance Assistive Devices Assistive Device Large Based Quad Cane Orthotic/Prosthetic Devices or Brace: Yes Gait Deviations General Gait Pattern Antalgic,Decreased Stride Length,Decreased Feet Clearance,Narrow Based Gait Factors Limiting Gait Function Factors Limiting Gait Function Decreased Activity Tolerance, Decreased Strength,Poor Balance,Poor Safety Awareness PT-OP-M Strength Start: 11/10/19 18:02 Freq: Status: Active Protocol: Document 08/03/20 14:30 DCW (Rec: 08/03/20 15:00 DCW [id number]) Hip Strength Hip Manual Muscle Testing Right Flexion (L2) 3- Fair- Extension (S1) 2+ Poor+ Abduction 2 Poor Adduction 2+ Poor+ External Rotation 2 Poor Internal Rotation 2 Poor Left Flexion (L2) 3+ Fair+ Extension (S1) 4 Good Abduction 3+ Fair+ Adduction 4- Good- External Rotation 4 Good Internal Rotation 4 Good Knee Strength Knee Manual Muscle Testing Right Flexion (S2) 2 Poor Extension (L3) 3- Fair- PT-OP-Q Treatments Start: 11/10/19 18:02 Freq: Status: Active Protocol: Document 10/07/20 12:03 DCW (Rec: 10/07/20 12:53 DCW [id number]) Gym Equipment Shuttle Balance red clips Details Red Comments Wide NATE, narrowed incrementally. Staggered. Required CGA. Neuro Re-Education Treatment Balance Activities Putting Details Standing putting Comments R hand strapped to putter Focus on weight shift, trunk rotation, standing balance PT-OP-T Assessment and Plan Start: 11/10/19 18:02 Freq: Status: Active Protocol: Document 10/07/20 12:03 DCW (Rec: 10/07/20 12:53 DCW [id number]) Physical Therapy Assessment Impairments Impairments Activity Tolerance,Balance, Coordination,Functional Activities,Functional Mobility ,Gait,Pain,Posture,ROM, Sensation,Soft Tissue Mobility ,Strength,Tone,Transfers Goals 4 Upholstery Sewer Goal (LTG) Pt will be able to perform 10 reps sit to stand with left UE support if needed in 30 sec to improve transition from sit to gait and decrease fall risk by 06/17/2020. 04/18/2020: Pt performs 4 reps sit to stand--1 with left hand support and 3 without UE support in 30 sec. LTG Duration 12/03/20 Tinnetti Impairment high fall risk Short Term Goal (STG) Pt will improve his ability to turn and step up with gait patterns to decrease fall risk . STG Duration Met Upholstery Sewer Goal (LTG) Pt will increase Tinnetti score to at least 24/28 in order to decrease fall risk to low. 04/18/2020: Tinetti score is 13 /28. LTG Duration 12/03/20 6MWT Impairment Pt amb 328 feet during 6MWT Short Term Goal (STG) A walking speed of <1.97 can indicate an increased risk of further functional decline. Pt to ambulate >400' during 6 MWT in order to decrease his risk. STG Duration Met 10/07/20 Custodial Goal (LTG) Pt to ambulate >475' during 6 MWT LTG Duration 12/03/20 Gait Impairment gait deviations Short Term Goal (STG) Pt will be able to amb for 20 ft with minimal in-toeing of LLE in order to reduce risk of falls. STG Duration Met Custodial Goal (LTG) Pt will be able to amb for 50 ft without leaning onto LBQC for heavy support in order to reduce fall risk. 04/18/2020: Pt with minimal leaning into QC with gait, but has step-to gait d/t paraplegia and so he does lean into it to clear right foot. LTG Duration 12/03/20 Progress Towards Goals Progress Towards Goals Progressing Toward Goals,Slow Progress due to Medical Issues Assessment Summary Assessment Assessment today for insurance purposes. Improved 6 MWT distance from last assessment by 41', improved from eval by 189'. Pt more motivated to participate with recent addition of balance training with putting. Physical Therapy Plan Frequency and Duration Frequency of Treatment 2x/Week Duration of Treatment 8 weeks Plan of Care Start Date 10/07/20 Plan of Care End Date 12/02/20 Therapeutic Interventions Therapeutic Interventions Balance Training,Gait Training ,Home Exercise Program, Neuromuscular Re-education, Orthotic/Prosthetic Management ,Patient/Caregiver Education, Self-Care/Home Management, Therapeutic Exercises Next Visit Focus/Plan Next Note Type Treatment Note Next Visit Plan Continue to progress with gait , ther ex per POC.
--- NOTE | 2020-10-07 12:55 | PT.OPPOC ---
Physical, Occupational & Speech Therapy At [facility] 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 (10/07/20) Weakness (10/07/20) Visit Care Team Role Provider Type Delfino Epstein MD Attending Provider Physician Primary Care Provider Specialty: [facility] Address: [address] [place] [address], [facility] Email: [email or web address] Plan Of Care PT-OP-T Assessment and Plan Start: 11/10/19 18:02 Freq: Status: Active Protocol: Document 10/07/20 12:03 DCW (Rec: 10/07/20 12:53 DCW [id number]) Physical Therapy Assessment Impairments Impairments Activity Tolerance,Balance, Coordination,Functional Activities,Functional Mobility ,Gait,Pain,Posture,ROM, Sensation,Soft Tissue Mobility ,Strength,Tone,Transfers Goals 4 Alf Goal (LTG) Pt will be able to perform 10 reps sit to stand with left UE support if needed in 30 sec to improve transition from sit to gait and decrease fall risk by 06/17/2020. 04/18/2020: Pt performs 4 reps sit to stand--1 with left hand support and 3 without UE support in 30 sec. LTG Duration 12/03/20 Tinnetti Impairment high fall risk Short Term Goal (STG) Pt will improve his ability to turn and step up with gait patterns to decrease fall risk . STG Duration Met Hr Representative Goal (LTG) Pt will increase Tinnetti score to at least 24/28 in order to decrease fall risk to low. 04/18/2020: Tinetti score is 13 /28. LTG Duration 12/03/20 6MWT Impairment Pt amb 328 feet during 6MWT Short Term Goal (STG) A walking speed of <1.97 can indicate an increased risk of further functional decline. Pt to ambulate >400' during 6 MWT in order to decrease his risk. STG Duration Met 10/07/20 Hr Representative Goal (LTG) Pt to ambulate >475' during 6 MWT LTG Duration 12/03/20 Gait Impairment gait deviations Short Term Goal (STG) Pt will be able to amb for 20 ft with minimal in-toeing of LLE in order to reduce risk of falls. STG Duration Met Hr Representative Goal (LTG) Pt will be able to amb for 50 ft without leaning onto LBQC for heavy support in order to reduce fall risk. 04/18/2020: Pt with minimal leaning into QC with gait, but has step-to gait d/t paraplegia and so he does lean into it to clear right foot. LTG Duration 12/03/20 Progress Towards Goals Progress Towards Goals Progressing Toward Goals,Slow Progress due to Medical Issues Assessment Summary Assessment Assessment today for insurance purposes. Improved 6 MWT distance from last assessment by 41', improved from eval by 189'. Pt more motivated to participate with recent addition of balance training with putting. Physical Therapy Plan Frequency and Duration Frequency of Treatment 2x/Week Duration of Treatment 8 weeks Plan of Care Start Date 10/07/20 Plan of Care End Date 12/02/20 Therapeutic Interventions Therapeutic Interventions Balance Training,Gait Training ,Home Exercise Program, Neuromuscular Re-education, Orthotic/Prosthetic Management ,Patient/Caregiver Education, Self-Care/Home Management, Therapeutic Exercises Next Visit Focus/Plan Next Note Type Treatment Note Next Visit Plan Continue to progress with gait , ther ex per POC. Plan of Care Dates Plan of Care Start Date 10/07/20 Plan of Care End Date 12/02/20 Electronically Signed by: Jefferson Ceron, PT 10/07/20 2311 Please Sign and Return: I have reviewed this Plan of Care and certify that the skilled therapy services above are required to meet the patient?s needs. Physician Signature Date Printed Name and Credentials Clinical Instructor Signature Printed Name and Credentials
--- NOTE | 2020-10-11 09:30 | PT-OP ANOTE ---
Pt's cancelled appt this am due to [employer] authorization still pending and was advised to hold on attending PT to allow coverage for therapy services.
--- NOTE | 2020-12-13 11:52 | PT.OPDS ---
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 (10/07/20) Weakness (10/07/20) Visit Care Team Role Provider Type Delfino Epstein MD Attending Provider Physician Primary Care Provider Specialty: Family Practice Address: [address] [place] [address], [id number] Email: [email or web address] Visit Number Visit Number 05/10 Discharge Summary PT-OP-B Current Condition Start: 11/10/19 12:59 Freq: Status: Active Protocol: Document 11/10/19 17:38 AMH (Rec: 11/10/19 18:01 AMH [email or web address]) Current Condition History of Current Condition Onset Date CVA in 2013. Falls x3 & hospitalization 06/22/19, and August 2019 Current Complaints dec activitiy tolerance, poor balance, dec amb speed History of Current Condition Pt is a 63 y.o. 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 Pt has been seen at [facility] for PT, OT, ST over the past few years. He was recently hospitalized ( 06/22/19) for 3 falls in the same day. And then again in August 2019. The patient had very low sodium levels at the time One fall occured in the shower and 2 occured getting out of bed. Since recent hospitalization, daughter reports she has seen a decline in his function in dec cognitive processing. Pt has dec stamina with walking, is more unstable on his feet, has been shuffling more and appears to have less coordination. Daughter belives he fell on 06/22/19 was due to pain in his LLE (from RA). Pt reports no sensation on RLE. He has a hx of Rhemuatoid Arthritis, blood clots, depression, diabetes mellitus I, falls, depression, heart attack, pacemaker, neuropathy, and R elbow surgery. Pt amb w a large base quad cane and DF assist AFO. Pt has had multiple falls prior to most recent hospitalization that normally occur with transitional movements like getting out of bed or into a car, prabhu when he is tired. There is an incline and gravel on their driveway which his daughter believes may be contributing to the falls with car transfers. Pt has required 24/7 caregiving since his CVA in 2013, which is provided by his daughter during the daytime and his at nighttime. Prior Treatments and Tests PT, OT, ST. Has seen improvements with PT, but discontinued d/t plateauing of function. Future Testing and Treatments Planned OT and speech at [facility] Treatment Goals Patient/Caregiver Goals To improve walking endurance, balance and to decrease fall risk. Prior Functional Status Baseline Function- ADL's Needs Assist Baseline Function- Mobility Needs Assist Baseline Function- Gait LBQC, AFO Baseline Function- Work/School NA Baseline Function- Recreation/Hobbies Able to ride in car with his daughter to drop of grandchildren at school. Able to amb short distances in the community w/LBQC. Able to use motorized carts at larger stores PT-OP-C Subjective Start: 11/10/19 12:59 Freq: Status: Active Protocol: Document 10/07/20 12:03 DCW (Rec: 10/07/20 12:53 DCW [id number]) OP-PT Subjective Patient Comments Patient Comments Pt moving a little better today. PT-OP-D Balance Start: 11/10/19 18:02 Freq: Status: Active Protocol: Document 08/30/20 16:45 DCW (Rec: 08/30/20 17:17 DCW [id number]) Tinetti Balance Assessment Sitting Balance Sitting Balance Steady, safe Arising from Chair Ability to Arise Able, uses arms to help Attempts to Arise Arises on 1st attempt Standing Balance Immediate Standing Balance Steady w/o support Standing Balance Narrow stance w/o support Nudged Response Steady Standing with Eyes Closed Steady Turning Step Pattern Turning 360 Degrees Discontinuous steps Stability Turning 360 Degrees Steady Sitting Down Sitting Down Safe, steady Gait and Step Initiation of Gait No hesitancy Right Foot Step Length Does pass stance foot Right Foot Step Height Completely clears floor Left Foot Step Length Does not pass stance foot Left Foot Step Height Completely clears floor Step Description Step Symmetry Step length not equal Step Continuity Stopping or discontinuity Gait Description Path Description Mild/moderate deviation Trunk Description Marked sway or uses aide Walking Stance Heels together Scoring and Interpretation Tinetti Composite Score (points) 20 Interpretation of Scores At risk for falls (19-24) Tinetti Impairment Rating from Composite 20 to <40% Impaired (Score 17- Score 22) PT-OP-E Functional Tests Start: 11/10/19 18:02 Freq: Status: Active Protocol: Document 08/30/20 16:45 DCW (Rec: 08/30/20 17:17 DCW [id number]) Functional Tests 6 Minute Walk Test Distance 372 Device Used LBQC Comments 1.03 ft/sec Timed Up and Go (TUG) Score 26.6 sec /c LBQC Comments 3-trial average (29.67, 25.38, 24,61) TUG Impairment Rating 100% Impaired (Score 20) PT-OP-G Mobility & Gait Start: 11/10/19 18:02 Freq: Status: Active Protocol: Document 11/10/19 18:02 AMH (Rec: 11/10/19 18:05 AMH [email or web address]) OP Mobility Evaluation Bed Mobility Rolling able to roll in bed ind Supine to and from Sit able to transfer supine to and from sit ind Transfers Sit to Stand Heavy use of LUE to push up from chair. Pt had some instability with rising from chair. OP Gait Assessment Gait Gait Assistance Required: Standby Assistance Assistive Devices Assistive Device Large Based Quad Cane Orthotic/Prosthetic Devices or Brace: Yes Gait Deviations General Gait Pattern Antalgic,Decreased Stride Length,Decreased Feet Clearance,Narrow Based Gait Factors Limiting Gait Function Factors Limiting Gait Function Decreased Activity Tolerance, Decreased Strength,Poor Balance,Poor Safety Awareness PT-OP-M Strength Start: 11/10/19 18:02 Freq: Status: Active Protocol: Document 08/03/20 14:30 DCW (Rec: 08/03/20 15:00 DCW [id number]) Hip Strength Hip Manual Muscle Testing Right Flexion (L2) 3- Fair- Extension (S1) 2+ Poor+ Abduction 2 Poor Adduction 2+ Poor+ External Rotation 2 Poor Internal Rotation 2 Poor Left Flexion (L2) 3+ Fair+ Extension (S1) 4 Good Abduction 3+ Fair+ Adduction 4- Good- External Rotation 4 Good Internal Rotation 4 Good Knee Strength Knee Manual Muscle Testing Right Flexion (S2) 2 Poor Extension (L3) 3- Fair- PT-OP-T Assessment and Plan Start: 11/10/19 18:02 Freq: Status: Active Protocol: Document 12/13/20 11:49 DCW (Rec: 12/13/20 11:52 DCW [id number]) Physical Therapy Assessment Assessment Summary Assessment Pt discharged after not being seen in two months following denial of further insurance coverage. Physical Therapy Plan Discharge Physical Therapy Discharge Reasons No Longer Attending PT Next Visit Focus/Plan Next Note Type Discharge Summary
== END 2020-12-30 09:30 ==
LOC: PHYS 12:00
PROVIDERS: PCP Family Medicine; Visit Provider Family Medicine
DX: R53.1 Weakness (principal); I69.359 Hemiplegia and hemiparesis following cerebral infarction affecting unspecified side
CPT/HCPCS: 97110; 97112; 97116; 97162

== ENCOUNTER → 2020-10-26 14:18 | Outpatient (CLI) | payer OTHER, MEDICARE, MEDICAID, SELFPAY ==
[2019-09-02 12:00] VITALS: BMI 23.4
[2020-10-26 15:45] LABS: Add Manual Diff / Slide Review NO; Basophils Absolute Auto 0 /uL (0-100); Basophils Percent Auto 0.4 % (0-2); Eosinophils Absolute Auto 100 /uL (0-450); Eosinophils Percent Auto 1.9 % (2-4); Hematocrit 40.2 % (41-53); Hemoglobin 13.9 g/dL (13.5-17.5); Lymphocytes Absolute Auto 1000 /uL (1100-4500); Lymphocytes Percent Auto 23.1 % (25-40); Mean Corpuscular HGB Conc 34.5 % (30-36); Mean Corpuscular Hemoglobin 31.3 PG (26-34); Mean Corpuscular Volume 90.6 fL (80-100); Monocytes Absolute Auto 700 /uL (0-900); Monocytes Percent Auto 15.3 % (3-14); Neutrophils Absolute Auto 2600 /uL (1500-7000); Neutrophils Percent Auto 59.3 % (50-75); Platelet Count 173 X10^3/uL (150-400); Red Blood Cell Count 4.43 X10^6/uL (4.5-5.9); Red Cell Distribution Width 14.5 % (11.6-14.8); White Blood Cell Count 4.4 X10^3/uL (4.5-11.0)
[2020-10-26 16:10] LABS: Hemoglobin A1C% w Est Avg Glu 6.9 % (4.0-6.0)
[2020-10-26 16:12] LABS: Alanine Aminotransferase 22 IU/L (<50); Albumin 4.2 g/dL (3.5-5.0); Albumin Globulin Ratio 1.1 (1.0-2.8); Alkaline Phosphatase 62 U/L (38-126); Aspartate Aminotransferase 35 IU/L (17-59); BUN Creatinine Ratio 18.1 (6-22); Bilirubin Total 0.3 mg/dL (0.2-1.3); Blood Urea Nitrogen 19 mg/dL (9-20); Calcium 9.4 mg/dL (8.4-10.2); Carbon Dioxide 34 mmol/L (22-32); Chloride 93 mmol/L (98-107); Estimated Glomerular Filt Rate > 60.0 mL/min (>60); Globulin 3.9 g/dL (1.7-4.1); Glucose 161 mg/dL (80-110); HEMOLYSIS < 15 (0-50); Potassium 4.6 mmol/L (3.4-5.1); Sodium 131 mmol/L (137-145); Total Protein 8.1 g/dL (6.3-8.2)
[2020-10-26 16:42] LABS: Thyroid Stimulating Hormone 1.06 uIU/mL (0.47-4.68)
== END ==
PROVIDERS: PCP Family Medicine; Referring Provider Family Medicine; Visit Provider Family Medicine
DX: E78.5 Hyperlipidemia, unspecified (principal); E87.1 Hypo-osmolality and hyponatremia
CPT/HCPCS: 36415; 80053; 83036; 84443; 85025

== ENCOUNTER → 2021-01-13 14:30 | Outpatient (CLI) | payer OTHER, MEDICARE, MEDICAID, SELFPAY ==
[2019-09-02 12:00] VITALS: BMI 23.4
[2021-01-13] MEDS: COVID-19 VACC, Ad26(JANSSEN)/PF 0.5 ML IM (14:38)
== END ==
PROVIDERS: PCP Family Medicine; Visit Provider Internal Medicine
DX: Z23 Encounter for immunization (principal)
CPT/HCPCS: 0031A; 91303

== ENCOUNTER → 2021-02-06 15:11 | Outpatient (CLI) | payer OTHER, MEDICARE, MEDICAID, SELFPAY ==
[2019-09-02 12:00] VITALS: BMI 23.4
[2021-02-06 15:29] LABS: Bacteria Urine None Seen; RBC Urine None Seen (0-5/HPF)
[2021-02-06 15:47] LABS: Add Manual Diff / Slide Review NO; Basophils Absolute Auto 0 /uL (0-100); Basophils Percent Auto 0.5 % (0-2); Eosinophils Absolute Auto 100 /uL (0-450); Eosinophils Percent Auto 1.7 % (2-4); Hematocrit 40.5 % (41-53); Hemoglobin 13.6 g/dL (13.5-17.5); Lymphocytes Absolute Auto 1100 /uL (1100-4500); Lymphocytes Percent Auto 16.5 % (25-40); Mean Corpuscular HGB Conc 33.5 % (30-36); Mean Corpuscular Hemoglobin 30.7 PG (26-34); Mean Corpuscular Volume 91.6 fL (80-100); Monocytes Absolute Auto 700 /uL (0-900); Monocytes Percent Auto 10.7 % (3-14); Neutrophils Absolute Auto 4700 /uL (1500-7000); Neutrophils Percent Auto 70.6 % (50-75); Platelet Count 160 X10^3/uL (150-400); Red Blood Cell Count 4.42 X10^6/uL (4.5-5.9); Red Cell Distribution Width 14.8 % (11.6-14.8); White Blood Cell Count 6.6 X10^3/uL (4.5-11.0)
[2021-02-06 16:01] LABS: Alanine Aminotransferase 24 IU/L (<50); Albumin 4.4 g/dL (3.5-5.0); Albumin Globulin Ratio 1.1 (1.0-2.8); Alkaline Phosphatase 68 U/L (38-126); Aspartate Aminotransferase 39 IU/L (17-59); BUN Creatinine Ratio 15.6 (6-22); Bilirubin Total 0.4 mg/dL (0.2-1.3); Blood Urea Nitrogen 15 mg/dL (9-20); Calcium 9.8 mg/dL (8.4-10.2); Carbon Dioxide 28 mmol/L (22-32); Chloride 97 mmol/L (98-107); Estimated Glomerular Filt Rate > 60.0 mL/min (>60); Globulin 4.1 g/dL (1.7-4.1); Glucose 122 mg/dL (80-110); HEMOLYSIS < 15 (0-50); Potassium 4.5 mmol/L (3.4-5.1); Sodium 133 mmol/L (137-145); Total Protein 8.5 g/dL (6.3-8.2)
[2021-02-06 16:31] LABS: Appearance Urine UA CLEAR; Bilirubin Urine UA NEGATIVE (NEGATIVE); Color Urine UA YELLOW; Glucose Urine UA NEGATIVE (Negative); Ketones Urine UA NEGATIVE (NEGATIVE); Leukocyte Esterase Urine UA NEGATIVE (NEGATIVE); Nitrite Urine UA NEGATIVE (Negative); Occult Blood Urine UA NEGATIVE (Negative); Protein Urine UA NEGATIVE (Negative); Specific Gravity Urine UA 1.015 (1.000-1.035); Urobilinogen Urine UA 0.2 E.U./dL (0.2)
[2021-02-06 16:50] LABS: Culture Indicated Urine Cult Not Indicated; Mucus Urine 1+ (Negative); Squamous Epithelial Cell Urine 0-1 /HPF (0-5/HPF); WBC Urine 1-5/HPF (0-5/HPF)
== END ==
PROVIDERS: PCP Family Medicine; Referring Provider Family Medicine; Visit Provider Family Medicine
DX: R53.1 Weakness (principal); R73.9 Hyperglycemia, unspecified
CPT/HCPCS: 36415; 80053; 81001; 85025

== ENCOUNTER → 2021-04-06 13:29 | Outpatient (CLI) | payer OTHER, MEDICARE, SELFPAY ==
[2019-09-02 12:00] VITALS: BMI 23.4
[2021-04-06 14:14] LABS: Add Manual Diff / Slide Review NO; Basophils Absolute Auto 0 /uL (0-100); Basophils Percent Auto 0.7 % (0-2); Eosinophils Absolute Auto 100 /uL (0-450); Hemoglobin 13.3 g/dL (13.5-17.5); Lymphocytes Absolute Auto 1000 /uL (1100-4500); Lymphocytes Percent Auto 22.5 % (25-40); Mean Corpuscular HGB Conc 34.2 % (30-36); Mean Corpuscular Hemoglobin 30.9 PG (26-34); Mean Corpuscular Volume 90.2 fL (80-100); Monocytes Absolute Auto 700 /uL (0-900); Monocytes Percent Auto 15.7 % (3-14); Neutrophils Absolute Auto 2600 /uL (1500-7000); Neutrophils Percent Auto 58.1 % (50-75); Platelet Count 163 X10^3/uL (150-400); Red Blood Cell Count 4.32 X10^6/uL (4.5-5.9); White Blood Cell Count 4.4 X10^3/uL (4.5-11.0)
[2021-04-06 15:18] LABS: Alanine Aminotransferase 21 IU/L (<50); Albumin 4.1 g/dL (3.5-5.0); Alkaline Phosphatase 70 U/L (38-126); Aspartate Aminotransferase 40 IU/L (17-59); Bilirubin Total 0.3 mg/dL (0.2-1.3); Blood Urea Nitrogen 13 mg/dL (9-20); Calcium 9.6 mg/dL (8.4-10.2); Carbon Dioxide 27 mmol/L (22-32); Chloride 96 mmol/L (98-107); Estimated Glomerular Filt Rate > 60.0 mL/min (>60); Globulin 4.2 g/dL (1.7-4.1); Glucose 111 mg/dL (80-110); HEMOLYSIS < 15 (0-50); Sodium 131 mmol/L (137-145); Total Protein 8.3 g/dL (6.3-8.2)
[2021-04-06 15:23] LABS: Hemoglobin A1C% w Est Avg Glu 7.1 % (4.0-6.0)
== END ==
PROVIDERS: Family Provider Family Medicine; PCP Family Medicine; Referring Provider Family Medicine; Visit Provider Family Medicine
DX: E78.5 Hyperlipidemia, unspecified (principal); E87.1 Hypo-osmolality and hyponatremia; R73.9 Hyperglycemia, unspecified
CPT/HCPCS: 36415; 80053; 83036; 85025

== ENCOUNTER 2021-05-12 12:00 | Outpatient (RCR) | payer OTHER, MEDICARE, MEDICAID, SELFPAY ==
[2019-09-02 12:00] VITALS: BMI 23.4
--- NOTE | 2021-02-14 15:16 | PT.OIE ---
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 (02/14/21) Unsteadiness on feet (02/14/21) Weakness (02/14/21) Past Medical History (Last Updated 07/23/18 @ 15:38 by Aida Jackson) Antiphospholipid antibody syndrome 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 (09/01/15) Aphasia following cerebrovascular disease (01/27/15) CAD (coronary artery disease) Cardiac arrhythmia Cerebrovascular accident (CVA) involving left middle cerebral artery territory (09/01/15) Chronic atrial flutter (09/01/15) Chronic systolic congestive heart failure (09/01/15) Coronary artery disease involving red devil coronary artery of red devil heart without angina pectoris (09/01/15) Diabetes mellitus DVT (deep venous thrombosis) Essential hypertension (09/01/15) Hemiparesis affecting dominant side as late effect of cerebrovascular accident (01/27/15) History of stroke with residual deficit Hyperlipidemia (09/01/15) Hyperlipidemia Myocardial infarction Pacemaker Rheumatoid arthritis Stenosis of left carotid artery (12/22/13) Systolic heart failure Type 2 diabetes mellitus Past Surgical History (Last Updated 06/22/19 @ 19:08 by Vidya Yao RN) AICD (automatic cardioverter/defibrillator) present History of angioplasty Presence of cardiac pacemaker Visit Care Team Role Provider Type Delfino Epstein MD Attending Provider Physician Family Provider Primary Care Provider Referring Provider Specialty: Family Practice Address: [address] [place] [address] Email: [email or web address] Physical Therapy Initial Evaluation PT-OP-A Visit Information Start: 02/14/21 14:35 Freq: Status: Active Protocol: Document 02/14/21 14:36 HH (Rec: 02/14/21 15:16 HH [email or web address]) Out-Patient Physical Therapy Visit Information Visit Information Visit Type Initial Evaluation Visit Start Time 13:50 Visit Stop Time 14:30 Total Visit Minutes 40 Visit Number 11/21 Number of COUNTY ATTORNEY Visits 0 Evaluation Information Evaluation Date 02/14/21 Precautions Precautions fall risk history of falls PT-OP-B Current Condition Start: 02/14/21 14:35 Freq: Status: Active Protocol: Document 02/14/21 14:36 HH (Rec: 02/14/21 15:16 [email or web address]) Current Condition History of Current Condition Onset Date CVA in 2013, multiple falls since. 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 Pt has been seen here at [facility] outpatient therapy services (OT, PT, ST) over the past few years. Pt was recently DC from PT in October, d/t denial of further insurance coverage. reports pt had a recent fall on 02/11 who fell backward while reaching for the fridge door. He hasnt had any falls beside this but his caught him almost fall during walking or getting up from a seated position. She noticed pt has been favoring his RLE by mostly WB through his LLE. Pt tends to drag hig R foot and not WB on it occasionally ,especially in the AM. She also noticed his R LE has been stiff which limits his mobility and increase his fall risks. He is still using a large based quad cane for all mobility and she hopes participating PT will improve his overall endurance, gait quality, strength and balance. Prior Treatments and Tests PT, OT, ST. Has seen improvements with PT Future Testing and Treatments Planned possible OT for RUE Treatment Goals Patient/Caregiver Goals 1. to improve walking endurance 2. to improve pt's overall balance 3. to decrease fall risk Prior Functional Status Baseline Function- ADL's Needs Assist Baseline Function- Mobility Needs Assist Baseline Function- Gait LBQC, R AFO, R hemishoulder sling PT-OP-C Subjective Start: 02/14/21 14:35 Freq: Status: Active Protocol: Document 02/14/21 14:36 (Rec: 02/14/21 15:16 [email or web address]) Patient Questionnaires ABC- Activity Specific Balance Confidence Scale ABC Score 15 ABC Functional Impairment 80 to <100% Impaired (Score 1- 20) PT-OP-E Functional Tests Start: 02/14/21 14:35 Freq: Status: Active Protocol: Document 02/14/21 14:36 (Rec: 02/14/21 15:16 [email or web address]) Functional Tests 6 Minute Walk Test Distance 326 ft Device Used LBQC on RUE Comments 2 point pattern until 260 ft kvng, no breaks taken, 1 foot drag but no LOB 30 Second Sit to Stand Test Score 6 times Comments 22 inch chair, pushed off from LBQC on L, WB mostly on RLE PT-OP-G Mobility & Gait Start: 02/14/21 14:35 Freq: Status: Active Protocol: Document 02/14/21 14:36 (Rec: 02/14/21 15:16 [email or web address]) OP Mobility Evaluation Bed Mobility Rolling IND Supine to and from Sit IND Transfers Sit to Stand heavy use of LUE to push off from LBQC from a 22 chair pt tends to WB mostly on LLE to push off. OP Gait Assessment Gait Gait Assistance Required: Standby Assistance Assistive Devices Assistive Device Large Based Quad Cane Orthotic/Prosthetic Devices or Brace: Yes Gait Deviations General Gait Pattern Decreased Stride Length, Decreased Feet Clearance, Narrow Based Gait,Step-to Gait Factors Limiting Gait Function Factors Limiting Gait Function Decreased Activity Tolerance, Decreased Strength,Poor Safety Awareness Comments Gait Comments pt amb with step to, narrowed NATE gait, along with toe in gait on LLE 2 point pattern most of the time but 3 point pattern when he gets fatigue PT-OP-M Strength Start: 02/14/21 14:35 Freq: Status: Active Protocol: Document 02/14/21 14:36 (Rec: 02/14/21 15:16 [email or web address]) Hip Strength Hip Manual Muscle Testing Right Flexion (L2) 2+ Poor+ Extension (S1) 2+ Poor+ Abduction 2+ Poor+ Adduction 2+ Poor+ Left Flexion (L2) 4 Good Extension (S1) 4 Good Abduction 4 Good Adduction 4 Good Knee Strength Knee Manual Muscle Testing Left Flexion (S2) 2 Poor Extension (L3) 3 Fair PT-OP-T Assessment and Plan Start: 02/14/21 14:35 Freq: Status: Active Protocol: Document 02/14/21 14:36 (Rec: 02/14/21 15:16 [email or web address]) Physical Therapy Assessment Rehab Potential Rehabilitation Potential Fair Evaluation Complexity Number of Personal Factors/Comorbidities 3 or More Number of Body Systems Impaired 4 or More Clinical Presentation at Evaluation Stable Impairments Impairments Activity Tolerance,Balance, Functional Activities, Functional Mobility,Gait, Posture,ROM,Sensation,Soft Tissue Mobility,Strength,Tone, Transfers Other Concerns Fall Risk high Barriers to Rehabilitation R hemiplegia from 2013 Goals Tinneti Impairment will assess next visit fall risks Impairment pt has a recent fall a week ago Correction Goal (LTG) pt will not have any falls in a 3 months period. LTG Duration 12 weeks transfers Impairment pt completed 6 STS in 30 seconds from 22 inch chair Short Term Goal (STG) pt will improve his overall LE strength to complete 8 STS in 30 seconds from a 22inch chair with LBQC STG Duration 6 weeks Senior Cisco Network Engineer Goal (LTG) pt will improve his overall LE strength and balance to complete 5 STS in 30 seconds from a 22inch chair without LBQC LTG Duration 12 weeks 6MWT Impairment pt amb 326ft with LBQC during 6MWT Short Term Goal (STG) Pt to amb > 350 during 6 MWT safely with SBA in order to improve his overall home and community mobility. STG Duration 6 weeks Senior [employer] Network Engineer Goal (LTG) Pt to amb > 400 during 6 MWT safely with SBA in order to improve his overall home and community mobility. LTG Duration 12 weeks Gait Impairment gait deviations Short Term Goal (STG) pt will be able to amb for 50 ft with min in toeing LLE in order to reduce risk of falls STG Duration 6 weeks Senior [employer] Network Engineer Goal (LTG) pt will mnimally leaning into QC with gait and min in toeing LLE >100 ft to improve his overall gait efficiency. LTG Duration 12 weeks Assessment Summary Assessment Sukh is a 65 yo returning patient for his R sided hemplegia and weakness from a CVA in 2012. He returns to physical therapy today after his recent fall on 02/11/21 but no significant injury noted. Reassessed his mobility (6STS in 30 s) and walking endurance (326ft) who is able to maintain pretty well since he was being discharged in Oct, 2020. However, pt shows increased leaning towards his L side and stiffness at R LE which increases his fall risks by affecting his gait mechanics and balance. Goals include decreasing fall risk, increasing his overall walking endurance, gait mechanics, RLE mobility and overall balance. Will assess Tinnetti balance next visit. Physical Therapy Plan Frequency and Duration Frequency of Treatment 2x/Week Duration of Treatment 12 weeks Plan of Care Start Date 02/14/21 Plan of Care End Date 05/15/21 Therapeutic Interventions Therapeutic Interventions Balance Training,Gait Training ,Home Exercise Program,Joint Mobilizations,Manual Therapy, Neuromuscular Re-education, Orthotic/Prosthetic Management ,Patient/Caregiver Education, Self-Care/Home Management,Soft Tissue Mobilization,Taping, Therapeutic Activities, Therapeutic Exercises Modalities Cold Pack/Ice Massage,Electric Stimulation,Hot Packs, Infrared Therapy,Iontophoresis ,Traction- Mechanical, Ultrasound Next Visit Focus/Plan Next Visit Plan tinneti
--- NOTE | 2021-02-14 16:01 | PT.OPPOC ---
Physical, Occupational & Speech Therapy At [facility] 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 (02/14/21) Unsteadiness on feet (02/14/21) Weakness (02/14/21) Visit Care Team Role Provider Type Delfino Epstein MD Attending Provider Physician Family Provider Primary Care Provider Referring Provider Specialty: Family Practice Address: [address] [place] [address], [id number] Email: [email or web address] Plan Of Care PT-OP-T Assessment and Plan Start: 02/14/21 14:35 Freq: Status: Active Protocol: Document 02/14/21 14:36 HH (Rec: 02/14/21 15:16 HH [email or web address]) Physical Therapy Assessment Rehab Potential Rehabilitation Potential Fair Evaluation Complexity Number of Personal Factors/Comorbidities 3 or More Number of Body Systems Impaired 4 or More Clinical Presentation at Evaluation Stable Impairments Impairments Activity Tolerance,Balance, Functional Activities, Functional Mobility,Gait, Posture,ROM,Sensation,Soft Tissue Mobility,Strength,Tone, Transfers Other Concerns Fall Risk high Barriers to Rehabilitation R hemiplegia from 2013 Goals Tinneti Impairment will assess next visit fall risks Impairment pt has a recent fall a week ago Fresco Artist Goal (LTG) pt will not have any falls in a 3 months period. LTG Duration 12 weeks transfers Impairment pt completed 6 STS in 30 seconds from 22 inch chair Short Term Goal (STG) pt will improve his overall LE strength to complete 8 STS in 30 seconds from a 22inch chair with LBQC STG Duration 6 weeks Fresco Artist Goal (LTG) pt will improve his overall LE strength and balance to complete 5 STS in 30 seconds from a 22inch chair without LBQC LTG Duration 12 weeks 6MWT Impairment pt amb 326ft with LBQC during 6MWT Short Term Goal (STG) Pt to amb > 350 during 6 MWT safely with SBA in order to improve his overall home and community mobility. STG Duration 6 weeks Shelter Goal (LTG) Pt to amb > 400 during 6 MWT safely with SBA in order to improve his overall home and community mobility. LTG Duration 12 weeks Gait Impairment gait deviations Short Term Goal (STG) pt will be able to amb for 50 ft with min in toeing LLE in order to reduce risk of falls STG Duration 6 weeks Fresco Artist Goal (LTG) pt will mnimally leaning into QC with gait and min in toeing LLE >100 ft to improve his overall gait efficiency. LTG Duration 12 weeks Assessment Summary Assessment Sukh is a 65 yo returning patient for his R sided hemplegia and weakness from a CVA in 2012. He returns to physical therapy today after his recent fall on 02/11/21 but no significant injury noted. Reassessed his mobility (6STS in 30 s) and walking endurance (326ft) who is able to maintain pretty well since he was being discharged in Oct, 2020. However, pt shows increased leaning towards his L side and stiffness at R LE which increases his fall risks by affecting his gait mechanics and balance. Goals include decreasing fall risk, increasing his overall walking endurance, gait mechanics, RLE mobility and overall balance. Will assess Tinnetti balance next visit. Physical Therapy Plan Frequency and Duration Frequency of Treatment 2x/Week Duration of Treatment 12 weeks Plan of Care Start Date 02/14/21 Plan of Care End Date 05/15/21 Therapeutic Interventions Therapeutic Interventions Balance Training,Gait Training ,Home Exercise Program,Joint Mobilizations,Manual Therapy, Neuromuscular Re-education, Orthotic/Prosthetic Management ,Patient/Caregiver Education, Self-Care/Home Management,Soft Tissue Mobilization,Taping, Therapeutic Activities, Therapeutic Exercises Modalities Cold Pack/Ice Massage,Electric Stimulation,Hot Packs, Infrared Therapy,Iontophoresis ,Traction- Mechanical, Ultrasound Next Visit Focus/Plan Next Visit Plan tinneti Plan of Care Dates Plan of Care Start Date 02/14/21 Plan of Care End Date 05/15/21 Electronically Signed by: Marcial Paredes, PT 02/14/21 4750 Please Sign and Return: I have reviewed this Plan of Care and certify that the skilled therapy services above are required to meet the patient?s needs. Physician Signature Date Printed Name and Credentials Clinical Instructor Signature Printed Name and Credentials
--- NOTE | 2021-02-16 15:20 | PT.OTN ---
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 (02/16/21) Unsteadiness on feet (02/16/21) Weakness (02/16/21) Physical Therapy Treatment Note PT-OP-A Visit Information Start: 02/14/21 14:35 Freq: Status: Active Protocol: Document 02/16/21 13:48 HH (Rec: 02/16/21 15:20 HH [id number]) Out-Patient Physical Therapy Visit Information Visit Information Visit Type Treatment Note Visit Start Time 13:48 Visit Stop Time 14:30 Total Visit Minutes 42 Visit Number 12/22 Number of LEATHER SCRUBBER Visits 0 PT-OP-B Current Condition Start: 02/14/21 14:35 Freq: Status: Active Protocol: Document 02/14/21 14:36 HH (Rec: 02/14/21 15:16 HH [email or web address]) Current Condition History of Current Condition Onset Date CVA in 2013, multiple falls since. 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 Pt has been seen here at [facility] outpatient therapy services (OT, PT, ST) over the past few years. Pt was recently DC from PT in October, d/t denial of further insurance coverage. reports pt had a recent fall on 02/11 who fell backward while reaching for the fridge door. He hasnt had any falls beside this but his caught him almost fall during walking or getting up from a seated position. She noticed pt has been favoring his RLE by mostly WB through his LLE. Pt tends to drag hig R foot and not WB on it occasionally ,especially in the AM. She also noticed his R LE has been stiff which limits his mobility and increase his fall risks. He is still using a large based quad cane for all mobility and she hopes participating PT will improve his overall endurance, gait quality, strength and balance. Prior Treatments and Tests PT, OT, ST. Has seen improvements with PT Future Testing and Treatments Planned possible OT for RUE Treatment Goals Patient/Caregiver Goals 1. to improve walking endurance 2. to improve pt's overall balance 3. to decrease fall risk Prior Functional Status Baseline Function- ADL's Needs Assist Baseline Function- Mobility Needs Assist Baseline Function- Gait LBQC, R AFO, R hemishoulder sling PT-OP-C Subjective Start: 02/14/21 14:35 Freq: Status: Active Protocol: Document 02/16/21 13:48 HH (Rec: 02/16/21 15:20 [id number]) OP-PT Subjective Patient Comments Patient Comments stated He did get a little bit tired after the evaluation PT-OP-D Balance Start: 02/14/21 14:35 Freq: Status: Active Protocol: Document 02/16/21 13:48 HH (Rec: 02/16/21 15:20 [id number]) Tinetti Balance Assessment Sitting Balance Sitting Balance Steady, safe Arising from Chair Ability to Arise Able, uses arms to help Attempts to Arise Arises on 1st attempt Standing Balance Immediate Standing Balance Steady w/o support Standing Balance Narrow stance w/o support Nudged Response Steady Standing with Eyes Closed Steady Turning Step Pattern Turning 360 Degrees Discontinuous steps Stability Turning 360 Degrees Steady Sitting Down Sitting Down Safe, steady Gait and Step Initiation of Gait No hesitancy Right Foot Step Length Does pass stance foot Right Foot Step Height Completely clears floor Left Foot Step Length Does pass stance foot Left Foot Step Height Completely clears floor Step Description Step Symmetry Step length not equal Step Continuity Stopping or discontinuity Gait Description Path Description Mild/moderate deviation Trunk Description Marked sway or uses aide Walking Stance Heels apart Scoring and Interpretation Tinetti Composite Score (points) 20 Interpretation of Scores At risk for falls (19-24) Tinetti Impairment Rating from Composite 20 to <40% Impaired (Score 17- Score 22) PT-OP-E Functional Tests Start: 02/14/21 14:35 Freq: Status: Active Protocol: Document 02/14/21 14:36 HH (Rec: 02/14/21 15:16 [email or web address]) Functional Tests 6 Minute Walk Test Distance 326 ft Device Used LBQC on RUE Comments 2 point pattern until 260 ft kvng, no breaks taken, 1 foot drag but no LOB 30 Second Sit to Stand Test Score 6 times Comments 22 inch chair, pushed off from LBQC on L, WB mostly on RLE PT-OP-G Mobility & Gait Start: 02/14/21 14:35 Freq: Status: Active Protocol: Document 02/14/21 14:36 HH (Rec: 02/14/21 15:16 [email or web address]) OP Mobility Evaluation Bed Mobility Rolling IND Supine to and from Sit IND Transfers Sit to Stand heavy use of LUE to push off from LBQC from a 22 chair pt tends to WB mostly on LLE to push off. OP Gait Assessment Gait Gait Assistance Required: Standby Assistance Assistive Devices Assistive Device Large Based Quad Cane Orthotic/Prosthetic Devices or Brace: Yes Gait Deviations General Gait Pattern Decreased Stride Length, Decreased Feet Clearance, Narrow Based Gait,Step-to Gait Factors Limiting Gait Function Factors Limiting Gait Function Decreased Activity Tolerance, Decreased Strength,Poor Safety Awareness Comments Gait Comments pt amb with step to, narrowed NATE gait, along with toe in gait on LLE 2 point pattern most of the time but 3 point pattern when he gets fatigue PT-OP-M Strength Start: 02/14/21 14:35 Freq: Status: Active Protocol: Document 02/14/21 14:36 HH (Rec: 02/14/21 15:16 HH [email or web address]) Hip Strength Hip Manual Muscle Testing Right Flexion (L2) 2+ Poor+ Extension (S1) 2+ Poor+ Abduction 2+ Poor+ Adduction 2+ Poor+ Left Flexion (L2) 4 Good Extension (S1) 4 Good Abduction 4 Good Adduction 4 Good Knee Strength Knee Manual Muscle Testing Left Flexion (S2) 2 Poor Extension (L3) 3 Fair PT-OP-Q Treatments Start: 02/14/21 14:35 Freq: Status: Active Protocol: Document 02/16/21 13:48 HH (Rec: 02/16/21 15:20 [id number]) Cardio Equipment Recumbent Stepper (Sci-Fit) Duration (Minutes) 6 Resistance 5 Gym Equipment Shuttle Recovery Unilateral Squats Resistance 37# Shuttle Recovery Platform Stable Reps/Time 10 x2 Therapeutic Exercises Sitting Exercises sit to stand Sitting Exercise Name on stepper chair. facing mirror Side bilateral Reps/Minutes 6 x2 Comments cues on weightshifted to R to facilitate WB on RLE Standing Exercises lateral weight shift Standing Exercise Name mirror in front Reps/Minutes 8 mins Comments cues on weightshifted to R to facilitate WB on RLE PT-OP-T Assessment and Plan Start: 02/14/21 14:35 Freq: Status: Active Protocol: Document 02/16/21 13:48 HH (Rec: 02/16/21 15:20 [id number]) Physical Therapy Assessment Goals Tinneti Impairment pt scores 20/28 Insulation Cutter Goal (LTG) pt will be able to reach >22/ 28 on Tinneti to improve his overall balance and walking ability LTG Duration 10 weeks fall risks Impairment pt has a recent fall a week ago Insulation Cutter Goal (LTG) pt will not have any falls in a 3 months period. LTG Duration 12 weeks transfers Impairment pt completed 6 STS in 30 seconds from 22 inch chair Short Term Goal (STG) pt will improve his overall LE strength to complete 8 STS in 30 seconds from a 22inch chair with LBQC STG Duration 6 weeks Skilled Nursing Goal (LTG) pt will improve his overall LE strength and balance to complete 5 STS in 30 seconds from a 22inch chair without LBQC LTG Duration 12 weeks 6MWT Impairment pt amb 326ft with LBQC during 6MWT Short Term Goal (STG) Pt to amb > 350 during 6 MWT safely with SBA in order to improve his overall home and community mobility. STG Duration 6 weeks Skilled Nursing Goal (LTG) Pt to amb > 400 during 6 MWT safely with SBA in order to improve his overall home and community mobility. LTG Duration 12 weeks Gait Impairment gait deviations Short Term Goal (STG) pt will be able to amb for 50 ft with min in toeing LLE in order to reduce risk of falls STG Duration 6 weeks Insulation Cutter Goal (LTG) pt will mnimally leaning into QC with gait and min in toeing LLE >100 ft to improve his overall gait efficiency. LTG Duration 12 weeks Assessment Summary Assessment pt scored 20/28 on Tinneti which is the same as his score when he was DC from October. Tx focuses on increasing WB on RLE during STS and standing position today. He ned session well. Physical Therapy Plan Frequency and Duration Frequency of Treatment 2x/Week Duration of Treatment 12 weeks Plan of Care Start Date 02/14/21 Plan of Care End Date 05/15/21 Next Visit Focus/Plan Next Note Type Treatment Note Next Visit Plan latearl weight shift STS leg press R leg mobility stretch
--- NOTE | 2021-02-21 09:02 | PT.OTN ---
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 (02/21/21) Unsteadiness on feet (02/21/21) Weakness (02/21/21) Physical Therapy Treatment Note PT-OP-A Visit Information Start: 02/14/21 14:35 Freq: Status: Active Protocol: Document 02/21/21 08:19 SP (Rec: 02/21/21 10:33 SP [id number]) Out-Patient Physical Therapy Visit Information Visit Information Visit Type Treatment Note Visit Start Time 08:19 Visit Stop Time 09:02 Total Visit Minutes 43 Visit Number 01/19 Number of LACE INSPECTOR Visits 1 Evaluation Information Evaluation Date 02/14/21 Precautions Precautions fall risk history of falls PT-OP-B Current Condition Start: 02/14/21 14:35 Freq: Status: Active Protocol: Document 02/14/21 14:36 HH (Rec: 02/14/21 15:16 HH [email or web address]) Current Condition History of Current Condition Onset Date CVA in 2013, multiple falls since. 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 Pt has been seen here at [facility] outpatient therapy services (OT, PT, ST) over the past few years. Pt was recently DC from PT in October, d/t denial of further insurance coverage. reports pt had a recent fall on 02/11 who fell backward while reaching for the fridge door. He hasnt had any falls beside this but his caught him almost fall during walking or getting up from a seated position. She noticed pt has been favoring his RLE by mostly WB through his LLE. Pt tends to drag hig R foot and not WB on it occasionally ,especially in the AM. She also noticed his R LE has been stiff which limits his mobility and increase his fall risks. He is still using a large based quad cane for all mobility and she hopes participating PT will improve his overall endurance, gait quality, strength and balance. Prior Treatments and Tests PT, OT, ST. Has seen improvements with PT Future Testing and Treatments Planned possible OT for RUE Treatment Goals Patient/Caregiver Goals 1. to improve walking endurance 2. to improve pt's overall balance 3. to decrease fall risk Prior Functional Status Baseline Function- ADL's Needs Assist Baseline Function- Mobility Needs Assist Baseline Function- Gait LBQC, R AFO, R hemishoulder sling PT-OP-C Subjective Start: 02/14/21 14:35 Freq: Status: Active Protocol: Document 02/21/21 08:19 SP (Rec: 02/21/21 10:33 SP [id number]) OP-PT Subjective Patient Comments Patient Comments Family member arrived with pt then went to do errands. PT-OP-D Balance Start: 02/14/21 14:35 Freq: Status: Active Protocol: Document 02/16/21 13:48 HH (Rec: 02/16/21 15:20 HH [id number]) Tinetti Balance Assessment Sitting Balance Sitting Balance Steady, safe Arising from Chair Ability to Arise Able, uses arms to help Attempts to Arise Arises on 1st attempt Standing Balance Immediate Standing Balance Steady w/o support Standing Balance Narrow stance w/o support Nudged Response Steady Standing with Eyes Closed Steady Turning Step Pattern Turning 360 Degrees Discontinuous steps Stability Turning 360 Degrees Steady Sitting Down Sitting Down Safe, steady Gait and Step Initiation of Gait No hesitancy Right Foot Step Length Does pass stance foot Right Foot Step Height Completely clears floor Left Foot Step Length Does pass stance foot Left Foot Step Height Completely clears floor Step Description Step Symmetry Step length not equal Step Continuity Stopping or discontinuity Gait Description Path Description Mild/moderate deviation Trunk Description Marked sway or uses aide Walking Stance Heels apart Scoring and Interpretation Tinetti Composite Score (points) 20 Interpretation of Scores At risk for falls (19-24) Tinetti Impairment Rating from Composite 20 to <40% Impaired (Score 17- Score 22) PT-OP-E Functional Tests Start: 02/14/21 14:35 Freq: Status: Active Protocol: Document 02/14/21 14:36 HH (Rec: 02/14/21 15:16 HH [email or web address]) Functional Tests 6 Minute Walk Test Distance 326 ft Device Used LBQC on RUE Comments 2 point pattern until 260 ft kvng, no breaks taken, 1 foot drag but no LOB 30 Second Sit to Stand Test Score 6 times Comments 22 inch chair, pushed off from LBQC on L, WB mostly on RLE PT-OP-G Mobility & Gait Start: 02/14/21 14:35 Freq: Status: Active Protocol: Document 02/14/21 14:36 HH (Rec: 02/14/21 15:16 [email or web address]) OP Mobility Evaluation Bed Mobility Rolling IND Supine to and from Sit IND Transfers Sit to Stand heavy use of LUE to push off from LBQC from a 22 chair pt tends to WB mostly on LLE to push off. OP Gait Assessment Gait Gait Assistance Required: Standby Assistance Assistive Devices Assistive Device Large Based Quad Cane Orthotic/Prosthetic Devices or Brace: Yes Gait Deviations General Gait Pattern Decreased Stride Length, Decreased Feet Clearance, Narrow Based Gait,Step-to Gait Factors Limiting Gait Function Factors Limiting Gait Function Decreased Activity Tolerance, Decreased Strength,Poor Safety Awareness Comments Gait Comments pt amb with step to, narrowed NATE gait, along with toe in gait on LLE 2 point pattern most of the time but 3 point pattern when he gets fatigue PT-OP-M Strength Start: 02/14/21 14:35 Freq: Status: Active Protocol: Document 02/14/21 14:36 (Rec: 02/14/21 15:16 [email or web address]) Hip Strength Hip Manual Muscle Testing Right Flexion (L2) 2+ Poor+ Extension (S1) 2+ Poor+ Abduction 2+ Poor+ Adduction 2+ Poor+ Left Flexion (L2) 4 Good Extension (S1) 4 Good Abduction 4 Good Adduction 4 Good Knee Strength Knee Manual Muscle Testing Left Flexion (S2) 2 Poor Extension (L3) 3 Fair PT-OP-Q Treatments Start: 02/14/21 14:35 Freq: Status: Active Protocol: Document 02/21/21 08:19 SP (Rec: 02/21/21 10:33 SP [id number]) Cardio Equipment Recumbent Elliptical (BiodVerdezyne) Duration (Minutes) 6 Resistance 5 Seat Position 9 Other LE's & LUE Gym Equipment Shuttle Recovery Unilateral Squats Resistance 37# Shuttle Recovery Platform Stable Reps/Time R 10, 5 reps, L 10 x2 reps tires at 7 Bilateral Squats Details Bilateral Squats ball between knees Resistance 50# Shuttle Recovery Platform Stable Reps/Time x15 Therapeutic Exercises Sitting Exercises hip stretch Sitting Exercise Name HS Side right Reps/Minutes 30 sec total Comments manual then hip hinge forward sit to stand Sitting Exercise Name on stepper chair. facing mirror Side bilateral Reps/Minutes 6 reps /30 sec x2 Comments cues on weightshifted to R to facilitate WB on RLE- improved self correct's Standing Exercises lateral weight shift Standing Exercise Name lateral wt shift, then forward wt shift over forward stance LE Resistance CG Equipment Used in front mirror, QC in LUE support Reps/Minutes 10 mins Comments cues on weightshifted to R to facilitate WB on RLE PT-OP-T Assessment and Plan Start: 02/14/21 14:35 Freq: Status: Active Protocol: Document 02/21/21 08:19 SP (Rec: 02/21/21 10:33 SP [id number]) Physical Therapy Assessment Goals Tinneti Impairment pt scores 20/28 Long-Term Goal (LTG) pt will be able to reach >22/ 28 on Tinneti to improve his overall balance and walking ability LTG Duration 10 weeks fall risks Impairment pt has a recent fall a week ago Heat Set Operator Goal (LTG) pt will not have any falls in a 3 months period. LTG Duration 12 weeks transfers Impairment pt completed 6 STS in 30 seconds from 22 inch chair Short Term Goal (STG) pt will improve his overall LE strength to complete 8 STS in 30 seconds from a 22inch chair with LBQC STG Duration 6 weeks Heat Set Operator Goal (LTG) pt will improve his overall LE strength and balance to complete 5 STS in 30 seconds from a 22inch chair without LBQC LTG Duration 12 weeks 6MWT Impairment pt amb 326ft with LBQC during 6MWT Short Term Goal (STG) Pt to amb > 350 during 6 MWT safely with SBA in order to improve his overall home and community mobility. STG Duration 6 weeks Heat Set Operator Goal (LTG) Pt to amb > 400 during 6 MWT safely with SBA in order to improve his overall home and community mobility. LTG Duration 12 weeks Gait Impairment gait deviations Short Term Goal (STG) pt will be able to amb for 50 ft with min in toeing LLE in order to reduce risk of falls STG Duration 6 weeks Long-Term Goal (LTG) pt will mnimally leaning into QC with gait and min in toeing LLE >100 ft to improve his overall gait efficiency. LTG Duration 12 weeks Assessment Summary Assessment Pt improved with self corrections trunk/ standing alignment stationary and leaving PT with cues for B feet forward parallel then even wt distribution and increase R LE WB stance time with LUE support using QC. Physical Therapy Plan Frequency and Duration Frequency of Treatment 2x/Week Duration of Treatment 12 weeks Plan of Care Start Date 02/14/21 Plan of Care End Date 05/15/21 Therapeutic Interventions Therapeutic Interventions Balance Training,Gait Training ,Home Exercise Program,Joint Mobilizations,Manual Therapy, Neuromuscular Re-education, Orthotic/Prosthetic Management ,Patient/Caregiver Education, Self-Care/Home Management,Soft Tissue Mobilization,Taping, Therapeutic Activities, Therapeutic Exercises Modalities Cold Pack/Ice Massage,Electric Stimulation,Hot Packs, Infrared Therapy,Iontophoresis ,Traction- Mechanical, Ultrasound Next Visit Focus/Plan Next Note Type Treatment Note Next Visit Plan Assess response to f/b/lateral weight shift STS leg press R leg mobility stretch (HS)
--- NOTE | 2021-02-23 09:45 | PT.OTN ---
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 (02/23/21) Unsteadiness on feet (02/23/21) Weakness (02/23/21) Physical Therapy Treatment Note PT-OP-A Visit Information Start: 02/14/21 14:35 Freq: Status: Active Protocol: Document 02/23/21 09:05 SP (Rec: 02/23/21 11:45 SP [id number]) Out-Patient Physical Therapy Visit Information Visit Information Visit Type Treatment Note Visit Start Time 09:05 Visit Stop Time 09:45 Total Visit Minutes 40 Visit Number 02/19 Number of SUPERVISOR SHUTTLE VENEERING Visits 2 Evaluation Information Evaluation Date 02/14/21 Precautions Precautions fall risk history of falls PT-OP-B Current Condition Start: 02/14/21 14:35 Freq: Status: Active Protocol: Document 02/14/21 14:36 HH (Rec: 02/14/21 15:16 HH [email or web address]) Current Condition History of Current Condition Onset Date CVA in 2013, multiple falls since. 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 Pt has been seen here at [facility] outpatient therapy services (OT, PT, ST) over the past few years. Pt was recently DC from PT in October, d/t denial of further insurance coverage. reports pt had a recent fall on 02/11 who fell backward while reaching for the fridge door. He hasnt had any falls beside this but his caught him almost fall during walking or getting up from a seated position. She noticed pt has been favoring his RLE by mostly WB through his LLE. Pt tends to drag hig R foot and not WB on it occasionally ,especially in the AM. She also noticed his R LE has been stiff which limits his mobility and increase his fall risks. He is still using a large based quad cane for all mobility and she hopes participating PT will improve his overall endurance, gait quality, strength and balance. Prior Treatments and Tests PT, OT, ST. Has seen improvements with PT Future Testing and Treatments Planned possible OT for RUE Treatment Goals Patient/Caregiver Goals 1. to improve walking endurance 2. to improve pt's overall balance 3. to decrease fall risk Prior Functional Status Baseline Function- ADL's Needs Assist Baseline Function- Mobility Needs Assist Baseline Function- Gait LBQC, R AFO, R hemishoulder sling PT-OP-C Subjective Start: 02/14/21 14:35 Freq: Status: Active Protocol: Document 02/23/21 09:05 SP (Rec: 02/23/21 11:45 SP [id number]) OP-PT Subjective Patient Comments Patient Comments Pt walking B feet more // today during gait upon arrival . PT-OP-D Balance Start: 02/14/21 14:35 Freq: Status: Active Protocol: Document 02/16/21 13:48 HH (Rec: 02/16/21 15:20 HH [id number]) Tinetti Balance Assessment Sitting Balance Sitting Balance Steady, safe Arising from Chair Ability to Arise Able, uses arms to help Attempts to Arise Arises on 1st attempt Standing Balance Immediate Standing Balance Steady w/o support Standing Balance Narrow stance w/o support Nudged Response Steady Standing with Eyes Closed Steady Turning Step Pattern Turning 360 Degrees Discontinuous steps Stability Turning 360 Degrees Steady Sitting Down Sitting Down Safe, steady Gait and Step Initiation of Gait No hesitancy Right Foot Step Length Does pass stance foot Right Foot Step Height Completely clears floor Left Foot Step Length Does pass stance foot Left Foot Step Height Completely clears floor Step Description Step Symmetry Step length not equal Step Continuity Stopping or discontinuity Gait Description Path Description Mild/moderate deviation Trunk Description Marked sway or uses aide Walking Stance Heels apart Scoring and Interpretation Tinetti Composite Score (points) 20 Interpretation of Scores At risk for falls (19-24) Tinetti Impairment Rating from Composite 20 to <40% Impaired (Score 17- Score 22) PT-OP-E Functional Tests Start: 02/14/21 14:35 Freq: Status: Active Protocol: Document 02/14/21 14:36 HH (Rec: 02/14/21 15:16 HH [email or web address]) Functional Tests 6 Minute Walk Test Distance 326 ft Device Used LBQC on RUE Comments 2 point pattern until 260 ft kvng, no breaks taken, 1 foot drag but no LOB 30 Second Sit to Stand Test Score 6 times Comments 22 inch chair, pushed off from LBQC on L, WB mostly on RLE PT-OP-G Mobility & Gait Start: 02/14/21 14:35 Freq: Status: Active Protocol: Document 02/14/21 14:36 HH (Rec: 02/14/21 15:16 [email or web address]) OP Mobility Evaluation Bed Mobility Rolling IND Supine to and from Sit IND Transfers Sit to Stand heavy use of LUE to push off from LBQC from a 22 chair pt tends to WB mostly on LLE to push off. OP Gait Assessment Gait Gait Assistance Required: Standby Assistance Assistive Devices Assistive Device Large Based Quad Cane Orthotic/Prosthetic Devices or Brace: Yes Gait Deviations General Gait Pattern Decreased Stride Length, Decreased Feet Clearance, Narrow Based Gait,Step-to Gait Factors Limiting Gait Function Factors Limiting Gait Function Decreased Activity Tolerance, Decreased Strength,Poor Safety Awareness Comments Gait Comments pt amb with step to, narrowed NATE gait, along with toe in gait on LLE 2 point pattern most of the time but 3 point pattern when he gets fatigue PT-OP-M Strength Start: 02/14/21 14:35 Freq: Status: Active Protocol: Document 02/14/21 14:36 (Rec: 02/14/21 15:16 [email or web address]) Hip Strength Hip Manual Muscle Testing Right Flexion (L2) 2+ Poor+ Extension (S1) 2+ Poor+ Abduction 2+ Poor+ Adduction 2+ Poor+ Left Flexion (L2) 4 Good Extension (S1) 4 Good Abduction 4 Good Adduction 4 Good Knee Strength Knee Manual Muscle Testing Left Flexion (S2) 2 Poor Extension (L3) 3 Fair PT-OP-Q Treatments Start: 02/14/21 14:35 Freq: Status: Active Protocol: Document 02/23/21 09:05 SP (Rec: 02/23/21 11:45 SP [id number]) Cardio Equipment Recumbent Elliptical (BiodSoompi) Duration (Minutes) 6 Resistance 5 Seat Position 8 Other B LE's & LUE, 352 steps/min Gym Equipment Shuttle Recovery Unilateral Squats Resistance 37# Shuttle Recovery Platform Stable Reps/Time R 6, 8 reps, L 10 x2 reps tires at 7 Bilateral Squats Details Bilateral Squats ball between knees Resistance 50# Shuttle Recovery Platform Stable Reps/Time x15 Therapeutic Exercises Sitting Exercises sit to stand Sitting Exercise Name from chair & blue foam cushion Side bilateral Equipment Used mirror front Reps/Minutes x6 Comments cues on weightshifted to R to facilitate WB on RLE- improved self correct's Standing Exercises lateral weight shift Standing Exercise Name lateral wt shift, then forward wt shift over forward stance LE Resistance CG Equipment Used in front mirror, QC in LUE support Reps/Minutes 10 mins Comments cues on weightshifted to R to facilitate WB on RLE Other Exercises hurdles Other Exercise Name Hurdles Resistance AROM Equipment Used rail //bar w/ LUE Reps/Minutes 10 ftx2 laps Comments lead each LE, cued L knee flexion decrease circumduction Manual Therapy Treatment Manual Techniques HS, fig 4 stretch Type supine on shuttle press Reps/Duration 30 sec each, B LE Comments manual PT-OP-T Assessment and Plan Start: 02/14/21 14:35 Freq: Status: Active Protocol: Document 02/23/21 09:05 SP (Rec: 02/23/21 11:45 SP [id number]) Physical Therapy Assessment Goals Tinneti Impairment pt scores 20/28 Usp Goal (LTG) pt will be able to reach >22/ 28 on Tinneti to improve his overall balance and walking ability LTG Duration 10 weeks fall risks Impairment pt has a recent fall a week ago Usp Goal (LTG) pt will not have any falls in a 3 months period. LTG Duration 12 weeks transfers Impairment pt completed 6 STS in 30 seconds from 22 inch chair Short Term Goal (STG) pt will improve his overall LE strength to complete 8 STS in 30 seconds from a 22inch chair with LBQC STG Duration 6 weeks Hunter Skin Diver Goal (LTG) pt will improve his overall LE strength and balance to complete 5 STS in 30 seconds from a 22inch chair without LBQC LTG Duration 12 weeks 6MWT Impairment pt amb 326ft with LBQC during 6MWT Short Term Goal (STG) Pt to amb > 350 during 6 MWT safely with SBA in order to improve his overall home and community mobility. STG Duration 6 weeks Hunter Skin Diver Goal (LTG) Pt to amb > 400 during 6 MWT safely with SBA in order to improve his overall home and community mobility. LTG Duration 12 weeks Gait Impairment gait deviations Short Term Goal (STG) pt will be able to amb for 50 ft with min in toeing LLE in order to reduce risk of falls STG Duration 6 weeks Hunter Skin Diver Goal (LTG) pt will mnimally leaning into QC with gait and min in toeing LLE >100 ft to improve his overall gait efficiency. LTG Duration 12 weeks Assessment Summary Assessment Pt improved in self trunk corrections and able to carryover into sit to stands and gait in //bars today, more even wt distribution into RLE when leaving. Physical Therapy Plan Frequency and Duration Frequency of Treatment 2x/Week Duration of Treatment 12 weeks Plan of Care Start Date 02/14/21 Plan of Care End Date 05/15/21 Therapeutic Interventions Therapeutic Interventions Balance Training,Gait Training ,Home Exercise Program,Joint Mobilizations,Manual Therapy, Neuromuscular Re-education, Orthotic/Prosthetic Management ,Patient/Caregiver Education, Self-Care/Home Management,Soft Tissue Mobilization,Taping, Therapeutic Activities, Therapeutic Exercises Modalities Cold Pack/Ice Massage,Electric Stimulation,Hot Packs, Infrared Therapy,Iontophoresis ,Traction- Mechanical, Ultrasound Next Visit Focus/Plan Next Note Type Treatment Note Next Visit Plan Assess response to f/b/lateral weight shift STS leg press R leg mobility stretch (HS), step taps, marlen stepping
--- NOTE | 2021-02-27 11:18 | PT.OTN ---
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 (02/27/21) Unsteadiness on feet (02/27/21) Weakness (02/27/21) Physical Therapy Treatment Note PT-OP-A Visit Information Start: 02/14/21 14:35 Freq: Status: Active Protocol: Document 02/27/21 10:38 HH (Rec: 02/27/21 11:17 HH [id number]) Out-Patient Physical Therapy Visit Information Visit Information Visit Type Treatment Note Visit Start Time 10:34 Visit Stop Time 11:15 Total Visit Minutes 41 Visit Number 03/21 PT-OP-B Current Condition Start: 02/14/21 14:35 Freq: Status: Active Protocol: Document 02/14/21 14:36 HH (Rec: 02/14/21 15:16 HH [email or web address]) Current Condition History of Current Condition Onset Date CVA in 2013, multiple falls since. 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 Pt has been seen here at [facility] outpatient therapy services (OT, PT, ST) over the past few years. Pt was recently DC from PT in October, d/t denial of further insurance coverage. reports pt had a recent fall on 02/11 who fell backward while reaching for the fridge door. He hasnt had any falls beside this but his caught him almost fall during walking or getting up from a seated position. She noticed pt has been favoring his RLE by mostly WB through his LLE. Pt tends to drag hig R foot and not WB on it occasionally ,especially in the AM. She also noticed his R LE has been stiff which limits his mobility and increase his fall risks. He is still using a large based quad cane for all mobility and she hopes participating PT will improve his overall endurance, gait quality, strength and balance. Prior Treatments and Tests PT, OT, ST. Has seen improvements with PT Future Testing and Treatments Planned possible OT for RUE Treatment Goals Patient/Caregiver Goals 1. to improve walking endurance 2. to improve pt's overall balance 3. to decrease fall risk Prior Functional Status Baseline Function- ADL's Needs Assist Baseline Function- Mobility Needs Assist Baseline Function- Gait LBQC, R AFO, R hemishoulder sling PT-OP-C Subjective Start: 02/14/21 14:35 Freq: Status: Active Protocol: Document 02/27/21 10:38 HH (Rec: 02/27/21 11:17 HH [id number]) OP-PT Subjective Patient Comments Patient Comments Pt continue to walk B feet more // today during gait upon arrival. PT-OP-D Balance Start: 02/14/21 14:35 Freq: Status: Active Protocol: Document 02/16/21 13:48 HH (Rec: 02/16/21 15:20 [id number]) Tinetti Balance Assessment Sitting Balance Sitting Balance Steady, safe Arising from Chair Ability to Arise Able, uses arms to help Attempts to Arise Arises on 1st attempt Standing Balance Immediate Standing Balance Steady w/o support Standing Balance Narrow stance w/o support Nudged Response Steady Standing with Eyes Closed Steady Turning Step Pattern Turning 360 Degrees Discontinuous steps Stability Turning 360 Degrees Steady Sitting Down Sitting Down Safe, steady Gait and Step Initiation of Gait No hesitancy Right Foot Step Length Does pass stance foot Right Foot Step Height Completely clears floor Left Foot Step Length Does pass stance foot Left Foot Step Height Completely clears floor Step Description Step Symmetry Step length not equal Step Continuity Stopping or discontinuity Gait Description Path Description Mild/moderate deviation Trunk Description Marked sway or uses aide Walking Stance Heels apart Scoring and Interpretation Tinetti Composite Score (points) 20 Interpretation of Scores At risk for falls (19-24) Tinetti Impairment Rating from Composite 20 to <40% Impaired (Score 17- Score 22) PT-OP-E Functional Tests Start: 02/14/21 14:35 Freq: Status: Active Protocol: Document 02/14/21 14:36 HH (Rec: 02/14/21 15:16 [email or web address]) Functional Tests 6 Minute Walk Test Distance 326 ft Device Used LBQC on RUE Comments 2 point pattern until 260 ft kvng, no breaks taken, 1 foot drag but no LOB 30 Second Sit to Stand Test Score 6 times Comments 22 inch chair, pushed off from LBQC on L, WB mostly on RLE PT-OP-G Mobility & Gait Start: 02/14/21 14:35 Freq: Status: Active Protocol: Document 02/14/21 14:36 HH (Rec: 02/14/21 15:16 [email or web address]) OP Mobility Evaluation Bed Mobility Rolling IND Supine to and from Sit IND Transfers Sit to Stand heavy use of LUE to push off from LBQC from a 22 chair pt tends to WB mostly on LLE to push off. OP Gait Assessment Gait Gait Assistance Required: Standby Assistance Assistive Devices Assistive Device Large Based Quad Cane Orthotic/Prosthetic Devices or Brace: Yes Gait Deviations General Gait Pattern Decreased Stride Length, Decreased Feet Clearance, Narrow Based Gait,Step-to Gait Factors Limiting Gait Function Factors Limiting Gait Function Decreased Activity Tolerance, Decreased Strength,Poor Safety Awareness Comments Gait Comments pt amb with step to, narrowed NATE gait, along with toe in gait on LLE 2 point pattern most of the time but 3 point pattern when he gets fatigue PT-OP-M Strength Start: 02/14/21 14:35 Freq: Status: Active Protocol: Document 02/14/21 14:36 HH (Rec: 02/14/21 15:16 HH [email or web address]) Hip Strength Hip Manual Muscle Testing Right Flexion (L2) 2+ Poor+ Extension (S1) 2+ Poor+ Abduction 2+ Poor+ Adduction 2+ Poor+ Left Flexion (L2) 4 Good Extension (S1) 4 Good Abduction 4 Good Adduction 4 Good Knee Strength Knee Manual Muscle Testing Left Flexion (S2) 2 Poor Extension (L3) 3 Fair PT-OP-Q Treatments Start: 02/14/21 14:35 Freq: Status: Active Protocol: Document 02/27/21 10:38 HH (Rec: 02/27/21 11:17 HH [id number]) Cardio Equipment Recumbent Stepper (Sci-Fit) Duration (Minutes) 6 Resistance 4 Therapeutic Exercises Standing Exercises side stepping Standing Exercise Name side stepping with L foot, RLE in place Side left Reps/Minutes 8 times x 3 sets Comments focus WB on RLE, no UE support lateral weight shift Standing Exercise Name lateral wt shift, then forward wt shift over forward stance LE Resistance CG Equipment Used in front mirror, no support Reps/Minutes 6 mins Comments cues on weightshifted to R to facilitate WB on RLE squats Standing Exercise Name standing chair squats Equipment Used 2 inch platform underneath Lfoot Reps/Minutes 2 x 10 reps Comments at parallel bars with left hand hold Gait Training Gait Activity gait Description 2 point pattern Device Used LBQC Level of Assistance CGA Surface ground level Distance/Duration 180 ft Treatment Focus 2 point pattern Comments cues on 2 point pattern with straight road. PT-OP-T Assessment and Plan Start: 02/14/21 14:35 Freq: Status: Active Protocol: Document 02/27/21 10:38 (Rec: 02/27/21 11:17 [id number]) Physical Therapy Assessment Goals Tinneti Impairment pt scores 20/28 Alf Goal (LTG) pt will be able to reach >22/ 28 on Tinneti to improve his overall balance and walking ability LTG Duration 10 weeks fall risks Impairment pt has a recent fall a week ago Coach Tour Driver Goal (LTG) pt will not have any falls in a 3 months period. LTG Duration 12 weeks transfers Impairment pt completed 6 STS in 30 seconds from 22 inch chair Short Term Goal (STG) pt will improve his overall LE strength to complete 8 STS in 30 seconds from a 22inch chair with LBQC STG Duration 6 weeks Alf Goal (LTG) pt will improve his overall LE strength and balance to complete 5 STS in 30 seconds from a 22inch chair without LBQC LTG Duration 12 weeks 6MWT Impairment pt amb 326ft with LBQC during 6MWT Short Term Goal (STG) Pt to amb > 350 during 6 MWT safely with SBA in order to improve his overall home and community mobility. STG Duration 6 weeks Alf Goal (LTG) Pt to amb > 400 during 6 MWT safely with SBA in order to improve his overall home and community mobility. LTG Duration 12 weeks Gait Impairment gait deviations Short Term Goal (STG) pt will be able to amb for 50 ft with min in toeing LLE in order to reduce risk of falls STG Duration 6 weeks Coach Tour Driver Goal (LTG) pt will mnimally leaning into QC with gait and min in toeing LLE >100 ft to improve his overall gait efficiency. LTG Duration 12 weeks Assessment Summary Assessment Pt overall shows improved confidence in WB through RLE during gait and STS. Added side stepping in place without support today. Physical Therapy Plan Frequency and Duration Frequency of Treatment 2x/Week Duration of Treatment 12 weeks Plan of Care Start Date 02/14/21 Plan of Care End Date 05/15/21 Therapeutic Interventions Therapeutic Interventions Balance Training,Gait Training ,Home Exercise Program,Joint Mobilizations,Manual Therapy, Neuromuscular Re-education, Orthotic/Prosthetic Management ,Patient/Caregiver Education, Self-Care/Home Management,Soft Tissue Mobilization,Taping, Therapeutic Activities, Therapeutic Exercises Modalities Cold Pack/Ice Massage,Electric Stimulation,Hot Packs, Infrared Therapy,Iontophoresis ,Traction- Mechanical, Ultrasound Next Visit Focus/Plan Next Note Type Treatment Note Next Visit Plan f/b/lateral weight shift STS leg press R leg mobility stretch (HS), step taps, marlen stepping
--- NOTE | 2021-03-02 09:45 | PT.OTN ---
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 (03/02/21) Unsteadiness on feet (03/02/21) Weakness (03/02/21) Physical Therapy Treatment Note PT-OP-A Visit Information Start: 02/14/21 14:35 Freq: Status: Active Protocol: Document 03/02/21 09:03 SP (Rec: 03/02/21 11:37 SP [id number]) Out-Patient Physical Therapy Visit Information Visit Information Visit Type Treatment Note Visit Note Caregiver asked if pt would benefit from new shoes? Visit Start Time 09:03 Visit Stop Time 09:45 Total Visit Minutes 42 Visit Number 04/21 Number of TOW PICKER Visits 1 Evaluation Information Evaluation Date 02/14/21 Precautions Precautions fall risk history of falls PT-OP-B Current Condition Start: 02/14/21 14:35 Freq: Status: Active Protocol: Document 02/14/21 14:36 HH (Rec: 02/14/21 15:16 HH [email or web address]) Current Condition History of Current Condition Onset Date CVA in 2013, multiple falls since. 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 Pt has been seen here at [facility] outpatient therapy services (OT, PT, ST) over the past few years. Pt was recently DC from PT in October, d/t denial of further insurance coverage. reports pt had a recent fall on 02/11 who fell backward while reaching for the fridge door. He hasnt had any falls beside this but his caught him almost fall during walking or getting up from a seated position. She noticed pt has been favoring his RLE by mostly WB through his LLE. Pt tends to drag hig R foot and not WB on it occasionally ,especially in the AM. She also noticed his R LE has been stiff which limits his mobility and increase his fall risks. He is still using a large based quad cane for all mobility and she hopes participating PT will improve his overall endurance, gait quality, strength and balance. Prior Treatments and Tests PT, OT, ST. Has seen improvements with PT Future Testing and Treatments Planned possible OT for RUE Treatment Goals Patient/Caregiver Goals 1. to improve walking endurance 2. to improve pt's overall balance 3. to decrease fall risk Prior Functional Status Baseline Function- ADL's Needs Assist Baseline Function- Mobility Needs Assist Baseline Function- Gait LBQC, R AFO, R hemishoulder sling PT-OP-C Subjective Start: 02/14/21 14:35 Freq: Status: Active Protocol: Document 03/02/21 09:03 SP (Rec: 03/02/21 11:37 SP [id number]) OP-PT Subjective Patient Comments Patient Comments Pt walking with feet turned to R but improved with cuing for // and even wt distribution self corrections. PT-OP-D Balance Start: 02/14/21 14:35 Freq: Status: Active Protocol: Document 02/16/21 13:48 HH (Rec: 02/16/21 15:20 HH [id number]) Tinetti Balance Assessment Sitting Balance Sitting Balance Steady, safe Arising from Chair Ability to Arise Able, uses arms to help Attempts to Arise Arises on 1st attempt Standing Balance Immediate Standing Balance Steady w/o support Standing Balance Narrow stance w/o support Nudged Response Steady Standing with Eyes Closed Steady Turning Step Pattern Turning 360 Degrees Discontinuous steps Stability Turning 360 Degrees Steady Sitting Down Sitting Down Safe, steady Gait and Step Initiation of Gait No hesitancy Right Foot Step Length Does pass stance foot Right Foot Step Height Completely clears floor Left Foot Step Length Does pass stance foot Left Foot Step Height Completely clears floor Step Description Step Symmetry Step length not equal Step Continuity Stopping or discontinuity Gait Description Path Description Mild/moderate deviation Trunk Description Marked sway or uses aide Walking Stance Heels apart Scoring and Interpretation Tinetti Composite Score (points) 20 Interpretation of Scores At risk for falls (19-24) Tinetti Impairment Rating from Composite 20 to <40% Impaired (Score 17- Score 22) PT-OP-E Functional Tests Start: 02/14/21 14:35 Freq: Status: Active Protocol: Document 02/14/21 14:36 HH (Rec: 02/14/21 15:16 HH [email or web address]) Functional Tests 6 Minute Walk Test Distance 326 ft Device Used LBQC on RUE Comments 2 point pattern until 260 ft kvng, no breaks taken, 1 foot drag but no LOB 30 Second Sit to Stand Test Score 6 times Comments 22 inch chair, pushed off from LBQC on L, WB mostly on RLE PT-OP-G Mobility & Gait Start: 02/14/21 14:35 Freq: Status: Active Protocol: Document 02/14/21 14:36 HH (Rec: 02/14/21 15:16 HH [email or web address]) OP Mobility Evaluation Bed Mobility Rolling IND Supine to and from Sit IND Transfers Sit to Stand heavy use of LUE to push off from LBQC from a 22 chair pt tends to WB mostly on LLE to push off. OP Gait Assessment Gait Gait Assistance Required: Standby Assistance Assistive Devices Assistive Device Large Based Quad Cane Orthotic/Prosthetic Devices or Brace: Yes Gait Deviations General Gait Pattern Decreased Stride Length, Decreased Feet Clearance, Narrow Based Gait,Step-to Gait Factors Limiting Gait Function Factors Limiting Gait Function Decreased Activity Tolerance, Decreased Strength,Poor Safety Awareness Comments Gait Comments pt amb with step to, narrowed NATE gait, along with toe in gait on LLE 2 point pattern most of the time but 3 point pattern when he gets fatigue PT-OP-M Strength Start: 02/14/21 14:35 Freq: Status: Active Protocol: Document 02/14/21 14:36 (Rec: 02/14/21 15:16 HH [email or web address]) Hip Strength Hip Manual Muscle Testing Right Flexion (L2) 2+ Poor+ Extension (S1) 2+ Poor+ Abduction 2+ Poor+ Adduction 2+ Poor+ Left Flexion (L2) 4 Good Extension (S1) 4 Good Abduction 4 Good Adduction 4 Good Knee Strength Knee Manual Muscle Testing Left Flexion (S2) 2 Poor Extension (L3) 3 Fair PT-OP-Q Treatments Start: 02/14/21 14:35 Freq: Status: Active Protocol: Document 03/02/21 09:03 SP (Rec: 03/02/21 11:37 SP [id number]) Cardio Equipment Recumbent Elliptical (Biodex) Duration (Minutes) 6 Resistance 5 Seat Position see 9 Other B LE's & LUE, 1035steps, 31 RPMs Gym Equipment Shuttle Recovery Unilateral Squats Resistance 37# Shuttle Recovery Platform Stable Reps/Time R 10, 6 reps, L 12 x2 reps Therapeutic Exercises Standing Exercises side stepping Standing Exercise Name side stepping with L foot, RLE in place Side left Equipment Used rail Reps/Minutes 3x3 reps- reduced reps due to R quad spasming- tiring Comments focus WB on RLE, light UE support lateral weight shift Standing Exercise Name lateral wt shift, then forward wt shift over forward stance LE Resistance CG Equipment Used in front mirror, no support Reps/Minutes 6 mins Comments cues on weightshifted to R to facilitate WB on RLE squats Standing Exercise Name standing chair squats Equipment Used 2 inch platform underneath Lfoot Reps/Minutes 2 x 10 reps Comments at parallel bars with left hand hold Gait Training Gait Activity gait Description 2 point pattern Device Used LBQC, gait belt Level of Assistance CGA, 10% A during R LE decreased foot clearance x3 at turns Surface ground level Distance/Duration 168 ft around clinic lap Treatment Focus 2 point pattern Comments cues on 2 point pattern with 52-54 SPM on straight distances decreased to 48-50 SPM end due to tiring and decreased R LE foot clearance at times. CG-10% A PT-OP-T Assessment and Plan Start: 02/14/21 14:35 Freq: Status: Active Protocol: Document 03/02/21 09:03 SP (Rec: 03/02/21 11:37 SP [id number]) Physical Therapy Assessment Goals Tinneti Impairment pt scores 20/28 Therapeutic Recreation Assistant Goal (LTG) pt will be able to reach >22/ 28 on Tinneti to improve his overall balance and walking ability LTG Duration 10 weeks fall risks Impairment pt has a recent fall a week ago Therapeutic Recreation Assistant Goal (LTG) pt will not have any falls in a 3 months period. LTG Duration 12 weeks transfers Impairment pt completed 6 STS in 30 seconds from 22 inch chair Short Term Goal (STG) pt will improve his overall LE strength to complete 8 STS in 30 seconds from a 22inch chair with LBQC STG Duration 6 weeks Intermediate Goal (LTG) pt will improve his overall LE strength and balance to complete 5 STS in 30 seconds from a 22inch chair without LBQC LTG Duration 12 weeks 6MWT Impairment pt amb 326ft with LBQC during 6MWT Short Term Goal (STG) Pt to amb > 350 during 6 MWT safely with SBA in order to improve his overall home and community mobility. STG Duration 6 weeks Intermediate Goal (LTG) Pt to amb > 400 during 6 MWT safely with SBA in order to improve his overall home and community mobility. LTG Duration 12 weeks Gait Impairment gait deviations Short Term Goal (STG) pt will be able to amb for 50 ft with min in toeing LLE in order to reduce risk of falls STG Duration 6 weeks Therapeutic Recreation Assistant Goal (LTG) pt will mnimally leaning into QC with gait and min in toeing LLE >100 ft to improve his overall gait efficiency. LTG Duration 12 weeks Assessment Summary Assessment Pt worked hard today with initiation of metronome during 2 pt gait with good self initiation of QC and RLE together, 3 instances of RLE catching floor during turn but gestured was helpful. R quad tired quickly during lateral stepping LLE requiring increase LUE support on rail today and decreased reps. Occaional cuing required for feet // during gait with improved evel LE WB and posture. Caregiver at end tx asked if had thoughts on new shoes. TOW PICKER mentioned will mention to PT to address next tx. Physical Therapy Plan Frequency and Duration Frequency of Treatment 2x/Week Duration of Treatment 12 weeks Plan of Care Start Date 02/14/21 Plan of Care End Date 05/15/21 Therapeutic Interventions Therapeutic Interventions Balance Training,Gait Training ,Home Exercise Program,Joint Mobilizations,Manual Therapy, Neuromuscular Re-education, Orthotic/Prosthetic Management ,Patient/Caregiver Education, Self-Care/Home Management,Soft Tissue Mobilization,Taping, Therapeutic Activities, Therapeutic Exercises Modalities Cold Pack/Ice Massage,Electric Stimulation,Hot Packs, Infrared Therapy,Iontophoresis ,Traction- Mechanical, Ultrasound Next Visit Focus/Plan Next Note Type Treatment Note Next Visit Plan Assess response to last tx: metronome during gait, see assessment for next tx suggestions. Continue per PT POC: f/b/ lateral weight shift STS leg press R leg mobility stretch (HS), step taps, marlen stepping
--- NOTE | 2021-03-06 16:00 | PT.OTN ---
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 (03/06/21) Unsteadiness on feet (03/06/21) Weakness (03/06/21) Physical Therapy Treatment Note PT-OP-A Visit Information Start: 02/14/21 14:35 Freq: Status: Active Protocol: Document 03/06/21 15:15 DCW (Rec: 03/06/21 16:00 DCW [id number]) Out-Patient Physical Therapy Visit Information Visit Information Visit Type Treatment Note Visit Start Time 15:15 Visit Stop Time 16:00 Total Visit Minutes 45 Visit Number 05/21 Number of MARINE FUEL DOCK ATTENDANT Visits 0 Evaluation Information Evaluation Date 02/14/21 Precautions Precautions fall risk history of falls PT-OP-B Current Condition Start: 02/14/21 14:35 Freq: Status: Active Protocol: Document 02/14/21 14:36 HH (Rec: 02/14/21 15:16 HH [email or web address]) Current Condition History of Current Condition Onset Date CVA in 2013, multiple falls since. 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 Pt has been seen here at [facility] outpatient therapy services (OT, PT, ST) over the past few years. Pt was recently DC from PT in October, d/t denial of further insurance coverage. reports pt had a recent fall on 02/11 who fell backward while reaching for the fridge door. He hasnt had any falls beside this but his caught him almost fall during walking or getting up from a seated position. She noticed pt has been favoring his RLE by mostly WB through his LLE. Pt tends to drag hig R foot and not WB on it occasionally ,especially in the AM. She also noticed his R LE has been stiff which limits his mobility and increase his fall risks. He is still using a large based quad cane for all mobility and she hopes participating PT will improve his overall endurance, gait quality, strength and balance. Prior Treatments and Tests PT, OT, ST. Has seen improvements with PT Future Testing and Treatments Planned possible OT for RUE Treatment Goals Patient/Caregiver Goals 1. to improve walking endurance 2. to improve pt's overall balance 3. to decrease fall risk Prior Functional Status Baseline Function- ADL's Needs Assist Baseline Function- Mobility Needs Assist Baseline Function- Gait LBQC, R AFO, R hemishoulder sling PT-OP-C Subjective Start: 02/14/21 14:35 Freq: Status: Active Protocol: Document 03/06/21 15:15 DCW (Rec: 03/06/21 16:00 DCW [id number]) OP-PT Subjective Patient Comments Patient Comments apologizes for missing this morning's appt, notes she had it down for the following day. PT-OP-D Balance Start: 02/14/21 14:35 Freq: Status: Active Protocol: Document 02/16/21 13:48 HH (Rec: 02/16/21 15:20 HH [id number]) Tinetti Balance Assessment Sitting Balance Sitting Balance Steady, safe Arising from Chair Ability to Arise Able, uses arms to help Attempts to Arise Arises on 1st attempt Standing Balance Immediate Standing Balance Steady w/o support Standing Balance Narrow stance w/o support Nudged Response Steady Standing with Eyes Closed Steady Turning Step Pattern Turning 360 Degrees Discontinuous steps Stability Turning 360 Degrees Steady Sitting Down Sitting Down Safe, steady Gait and Step Initiation of Gait No hesitancy Right Foot Step Length Does pass stance foot Right Foot Step Height Completely clears floor Left Foot Step Length Does pass stance foot Left Foot Step Height Completely clears floor Step Description Step Symmetry Step length not equal Step Continuity Stopping or discontinuity Gait Description Path Description Mild/moderate deviation Trunk Description Marked sway or uses aide Walking Stance Heels apart Scoring and Interpretation Tinetti Composite Score (points) 20 Interpretation of Scores At risk for falls (19-24) Tinetti Impairment Rating from Composite 20 to <40% Impaired (Score 17- Score 22) PT-OP-E Functional Tests Start: 02/14/21 14:35 Freq: Status: Active Protocol: Document 02/14/21 14:36 HH (Rec: 02/14/21 15:16 HH [email or web address]) Functional Tests 6 Minute Walk Test Distance 326 ft Device Used LBQC on RUE Comments 2 point pattern until 260 ft kvng, no breaks taken, 1 foot drag but no LOB 30 Second Sit to Stand Test Score 6 times Comments 22 inch chair, pushed off from LBQC on L, WB mostly on RLE PT-OP-G Mobility & Gait Start: 02/14/21 14:35 Freq: Status: Active Protocol: Document 02/14/21 14:36 HH (Rec: 02/14/21 15:16 HH [email or web address]) OP Mobility Evaluation Bed Mobility Rolling IND Supine to and from Sit IND Transfers Sit to Stand heavy use of LUE to push off from LBQC from a 22 chair pt tends to WB mostly on LLE to push off. OP Gait Assessment Gait Gait Assistance Required: Standby Assistance Assistive Devices Assistive Device Large Based Quad Cane Orthotic/Prosthetic Devices or Brace: Yes Gait Deviations General Gait Pattern Decreased Stride Length, Decreased Feet Clearance, Narrow Based Gait,Step-to Gait Factors Limiting Gait Function Factors Limiting Gait Function Decreased Activity Tolerance, Decreased Strength,Poor Safety Awareness Comments Gait Comments pt amb with step to, narrowed NATE gait, along with toe in gait on LLE 2 point pattern most of the time but 3 point pattern when he gets fatigue PT-OP-M Strength Start: 02/14/21 14:35 Freq: Status: Active Protocol: Document 02/14/21 14:36 HH (Rec: 02/14/21 15:16 [email or web address]) Hip Strength Hip Manual Muscle Testing Right Flexion (L2) 2+ Poor+ Extension (S1) 2+ Poor+ Abduction 2+ Poor+ Adduction 2+ Poor+ Left Flexion (L2) 4 Good Extension (S1) 4 Good Abduction 4 Good Adduction 4 Good Knee Strength Knee Manual Muscle Testing Left Flexion (S2) 2 Poor Extension (L3) 3 Fair PT-OP-Q Treatments Start: 02/14/21 14:35 Freq: Status: Active Protocol: Document 03/06/21 15:15 DCW (Rec: 03/06/21 16:00 DCW [id number]) Cardio Equipment Recumbent Elliptical (Biodex) Duration (Minutes) 5 Resistance 5 Seat Position 10 Other B LE's & LUE, 397 steps Gym Equipment Shuttle Recovery Unilateral Squats Resistance 37# Shuttle Recovery Platform Stable Reps/Time x15 bilaterally Therapeutic Exercises Sidelying Exercises 2 Sidelying Exercise Name Hip abduction Side right Reps/Minutes 2x15 Comments AAROM 1 Sidelying Exercise Name Clamshell Side right Reps/Minutes 2x15 Comments AAROM Standing Exercises side stepping Standing Exercise Name side stepping with L foot, RLE in place Side left Equipment Used rail Reps/Minutes 3x3 reps- reduced reps due to R quad spasming- tiring Comments focus WB on RLE, light UE support lateral weight shift Standing Exercise Name lateral wt shift, then forward wt shift over forward stance LE Resistance CG Equipment Used in front mirror, no support Reps/Minutes 6 mins Comments cues on weightshifted to R to facilitate WB on RLE squats Standing Exercise Name standing chair squats Equipment Used 2 inch platform underneath Lfoot Reps/Minutes 2 x 10 reps Comments at parallel bars with left hand hold PT-OP-T Assessment and Plan Start: 02/14/21 14:35 Freq: Status: Active Protocol: Document 03/06/21 15:15 DCW (Rec: 03/06/21 16:00 DCW [id number]) Physical Therapy Assessment Goals Tinneti Impairment pt scores 20/28 Physician Vice President Goal (LTG) pt will be able to reach >22/ 28 on Tinneti to improve his overall balance and walking ability LTG Duration 10 weeks fall risks Impairment pt has a recent fall a week ago Snf Goal (LTG) pt will not have any falls in a 3 months period. LTG Duration 12 weeks transfers Impairment pt completed 6 STS in 30 seconds from 22 inch chair Short Term Goal (STG) pt will improve his overall LE strength to complete 8 STS in 30 seconds from a 22inch chair with LBQC STG Duration 6 weeks Snf Goal (LTG) pt will improve his overall LE strength and balance to complete 5 STS in 30 seconds from a 22inch chair without LBQC LTG Duration 12 weeks 6MWT Impairment pt amb 326ft with LBQC during 6MWT Short Term Goal (STG) Pt to amb > 350 during 6 MWT safely with SBA in order to improve his overall home and community mobility. STG Duration 6 weeks Physician Vice President Goal (LTG) Pt to amb > 400 during 6 MWT safely with SBA in order to improve his overall home and community mobility. LTG Duration 12 weeks Gait Impairment gait deviations Short Term Goal (STG) pt will be able to amb for 50 ft with min in toeing LLE in order to reduce risk of falls STG Duration 6 weeks Physician Vice President Goal (LTG) pt will mnimally leaning into QC with gait and min in toeing LLE >100 ft to improve his overall gait efficiency. LTG Duration 12 weeks Assessment Summary Assessment Focused today on some hip ER/ abduction to help limit his knee falling in during recumbent stepper. Physical Therapy Plan Frequency and Duration Frequency of Treatment 2x/Week Duration of Treatment 12 weeks Plan of Care Start Date 02/14/21 Plan of Care End Date 05/15/21 Therapeutic Interventions Therapeutic Interventions Balance Training,Gait Training ,Home Exercise Program,Joint Mobilizations,Manual Therapy, Neuromuscular Re-education, Orthotic/Prosthetic Management ,Patient/Caregiver Education, Self-Care/Home Management,Soft Tissue Mobilization,Taping, Therapeutic Activities, Therapeutic Exercises Modalities Cold Pack/Ice Massage,Electric Stimulation,Hot Packs, Infrared Therapy,Iontophoresis ,Traction- Mechanical, Ultrasound Next Visit Focus/Plan Next Note Type Treatment Note Next Visit Plan Assess response to last tx: metronome during gait, see assessment for next tx suggestions. Continue per PT POC: f/b/ lateral weight shift STS leg press R leg mobility stretch (HS), step taps, marlen stepping
--- NOTE | 2021-03-09 12:07 | PT.OTN ---
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 (03/09/21) Unsteadiness on feet (03/09/21) Weakness (03/09/21) Physical Therapy Treatment Note PT-OP-A Visit Information Start: 02/14/21 14:35 Freq: Status: Active Protocol: Document 03/09/21 11:22 DCW (Rec: 03/09/21 12:06 DCW [id number]) Out-Patient Physical Therapy Visit Information Visit Information Visit Type Treatment Note Visit Note Pt arrived 7 min late Visit Start Time 11:22 Visit Stop Time 12:00 Total Visit Minutes 38 Visit Number 06/21 Number of BELLY ROLLER Visits 0 Evaluation Information Evaluation Date 02/14/21 Precautions Precautions fall risk history of falls PT-OP-B Current Condition Start: 02/14/21 14:35 Freq: Status: Active Protocol: Document 02/14/21 14:36 HH (Rec: 02/14/21 15:16 HH [email or web address]) Current Condition History of Current Condition Onset Date CVA in 2013, multiple falls since. 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 Pt has been seen here at [facility] outpatient therapy services (OT, PT, ST) over the past few years. Pt was recently DC from PT in October, d/t denial of further insurance coverage. reports pt had a recent fall on 02/11 who fell backward while reaching for the fridge door. He hasnt had any falls beside this but his caught him almost fall during walking or getting up from a seated position. She noticed pt has been favoring his RLE by mostly WB through his LLE. Pt tends to drag hig R foot and not WB on it occasionally ,especially in the AM. She also noticed his R LE has been stiff which limits his mobility and increase his fall risks. He is still using a large based quad cane for all mobility and she hopes participating PT will improve his overall endurance, gait quality, strength and balance. Prior Treatments and Tests PT, OT, ST. Has seen improvements with PT Future Testing and Treatments Planned possible OT for RUE Treatment Goals Patient/Caregiver Goals 1. to improve walking endurance 2. to improve pt's overall balance 3. to decrease fall risk Prior Functional Status Baseline Function- ADL's Needs Assist Baseline Function- Mobility Needs Assist Baseline Function- Gait LBQC, R AFO, R hemishoulder sling PT-OP-C Subjective Start: 02/14/21 14:35 Freq: Status: Active Protocol: Document 03/09/21 11:22 DCW (Rec: 03/09/21 12:06 DCW [id number]) OP-PT Subjective Patient Comments Patient Comments Pt indicates he is doing well today. PT-OP-D Balance Start: 02/14/21 14:35 Freq: Status: Active Protocol: Document 02/16/21 13:48 HH (Rec: 02/16/21 15:20 HH [id number]) Tinetti Balance Assessment Sitting Balance Sitting Balance Steady, safe Arising from Chair Ability to Arise Able, uses arms to help Attempts to Arise Arises on 1st attempt Standing Balance Immediate Standing Balance Steady w/o support Standing Balance Narrow stance w/o support Nudged Response Steady Standing with Eyes Closed Steady Turning Step Pattern Turning 360 Degrees Discontinuous steps Stability Turning 360 Degrees Steady Sitting Down Sitting Down Safe, steady Gait and Step Initiation of Gait No hesitancy Right Foot Step Length Does pass stance foot Right Foot Step Height Completely clears floor Left Foot Step Length Does pass stance foot Left Foot Step Height Completely clears floor Step Description Step Symmetry Step length not equal Step Continuity Stopping or discontinuity Gait Description Path Description Mild/moderate deviation Trunk Description Marked sway or uses aide Walking Stance Heels apart Scoring and Interpretation Tinetti Composite Score (points) 20 Interpretation of Scores At risk for falls (19-24) Tinetti Impairment Rating from Composite 20 to <40% Impaired (Score 17- Score 22) PT-OP-E Functional Tests Start: 02/14/21 14:35 Freq: Status: Active Protocol: Document 02/14/21 14:36 HH (Rec: 02/14/21 15:16 HH [email or web address]) Functional Tests 6 Minute Walk Test Distance 326 ft Device Used LBQC on RUE Comments 2 point pattern until 260 ft kvng, no breaks taken, 1 foot drag but no LOB 30 Second Sit to Stand Test Score 6 times Comments 22 inch chair, pushed off from LBQC on L, WB mostly on RLE PT-OP-G Mobility & Gait Start: 02/14/21 14:35 Freq: Status: Active Protocol: Document 02/14/21 14:36 HH (Rec: 02/14/21 15:16 HH [email or web address]) OP Mobility Evaluation Bed Mobility Rolling IND Supine to and from Sit IND Transfers Sit to Stand heavy use of LUE to push off from LBQC from a 22 chair pt tends to WB mostly on LLE to push off. OP Gait Assessment Gait Gait Assistance Required: Standby Assistance Assistive Devices Assistive Device Large Based Quad Cane Orthotic/Prosthetic Devices or Brace: Yes Gait Deviations General Gait Pattern Decreased Stride Length, Decreased Feet Clearance, Narrow Based Gait,Step-to Gait Factors Limiting Gait Function Factors Limiting Gait Function Decreased Activity Tolerance, Decreased Strength,Poor Safety Awareness Comments Gait Comments pt amb with step to, narrowed NATE gait, along with toe in gait on LLE 2 point pattern most of the time but 3 point pattern when he gets fatigue PT-OP-M Strength Start: 02/14/21 14:35 Freq: Status: Active Protocol: Document 02/14/21 14:36 (Rec: 02/14/21 15:16 [email or web address]) Hip Strength Hip Manual Muscle Testing Right Flexion (L2) 2+ Poor+ Extension (S1) 2+ Poor+ Abduction 2+ Poor+ Adduction 2+ Poor+ Left Flexion (L2) 4 Good Extension (S1) 4 Good Abduction 4 Good Adduction 4 Good Knee Strength Knee Manual Muscle Testing Left Flexion (S2) 2 Poor Extension (L3) 3 Fair PT-OP-Q Treatments Start: 02/14/21 14:35 Freq: Status: Active Protocol: Document 03/09/21 11:22 DCW (Rec: 03/09/21 12:06 DCW [id number]) Cardio Equipment Recumbent Elliptical (Biodex) Duration (Minutes) 5 Resistance 5 Seat Position 8 Other B LE's & LUE, 397 steps Gym Equipment Shuttle Recovery Unilateral Squats Resistance 37# Shuttle Recovery Platform Stable Reps/Time x15 bilaterally Therapeutic Exercises Sidelying Exercises 2 Sidelying Exercise Name Hip abduction Side right Reps/Minutes 2x15 Comments AAROM 1 Sidelying Exercise Name Clamshell Side right Reps/Minutes 2x15 Comments AAROM Standing Exercises side stepping Standing Exercise Name side stepping with L foot, RLE in place Side left Equipment Used rail Reps/Minutes 3x3 reps- reduced reps due to R quad spasming- tiring Comments focus WB on RLE, light UE support lateral weight shift Standing Exercise Name lateral wt shift, then forward wt shift over forward stance LE Resistance CG Equipment Used in front mirror, no support Reps/Minutes 6 mins Comments cues on weightshifted to R to facilitate WB on RLE Gait Training Gait Activity gait Description 2 point pattern Device Used LBQC, gait belt Level of Assistance CGA, 10% A during R LE decreased foot clearance x3 at turns Surface ground level Distance/Duration 168 ft around clinic lap Treatment Focus 2 point pattern Comments cues on 2 point pattern with 52-54 SPM on straight distances decreased to 48-50 SPM end due to tiring and decreased R LE foot clearance at times. CG-10% A PT-OP-T Assessment and Plan Start: 02/14/21 14:35 Freq: Status: Active Protocol: Document 03/09/21 11:22 DCW (Rec: 03/09/21 12:06 DCW [id number]) Physical Therapy Assessment Goals Tinneti Impairment pt scores 20/28 Apparel Designer Goal (LTG) pt will be able to reach >22/ 28 on Tinneti to improve his overall balance and walking ability LTG Duration 10 weeks fall risks Impairment pt has a recent fall a week ago Apparel Designer Goal (LTG) pt will not have any falls in a 3 months period. LTG Duration 12 weeks transfers Impairment pt completed 6 STS in 30 seconds from 22 inch chair Short Term Goal (STG) pt will improve his overall LE strength to complete 8 STS in 30 seconds from a 22inch chair with LBQC STG Duration 6 weeks Shelter Goal (LTG) pt will improve his overall LE strength and balance to complete 5 STS in 30 seconds from a 22inch chair without LBQC LTG Duration 12 weeks 6MWT Impairment pt amb 326ft with LBQC during 6MWT Short Term Goal (STG) Pt to amb > 350 during 6 MWT safely with SBA in order to improve his overall home and community mobility. STG Duration 6 weeks Shelter Goal (LTG) Pt to amb > 400 during 6 MWT safely with SBA in order to improve his overall home and community mobility. LTG Duration 12 weeks Gait Impairment gait deviations Short Term Goal (STG) pt will be able to amb for 50 ft with min in toeing LLE in order to reduce risk of falls STG Duration 6 weeks Shelter Goal (LTG) pt will mnimally leaning into QC with gait and min in toeing LLE >100 ft to improve his overall gait efficiency. LTG Duration 12 weeks Assessment Summary Assessment Pt largely similar to his usual level of function, was putting forth good effort with sidelying TherEx, did require a fair amount of assisted ROMto lift leg. Physical Therapy Plan Frequency and Duration Frequency of Treatment 2x/Week Duration of Treatment 12 weeks Plan of Care Start Date 02/14/21 Plan of Care End Date 05/15/21 Therapeutic Interventions Therapeutic Interventions Balance Training,Gait Training ,Home Exercise Program,Joint Mobilizations,Manual Therapy, Neuromuscular Re-education, Orthotic/Prosthetic Management ,Patient/Caregiver Education, Self-Care/Home Management,Soft Tissue Mobilization,Taping, Therapeutic Activities, Therapeutic Exercises Modalities Cold Pack/Ice Massage,Electric Stimulation,Hot Packs, Infrared Therapy,Iontophoresis ,Traction- Mechanical, Ultrasound Next Visit Focus/Plan Next Note Type Treatment Note Next Visit Plan Assess response to last tx: metronome during gait, see assessment for next tx suggestions. Continue per PT POC: f/b/ lateral weight shift STS leg press R leg mobility stretch (HS), step taps, marlen stepping
--- NOTE | 2021-03-13 12:07 | PT.OTN ---
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 (03/13/21) Unsteadiness on feet (03/13/21) Weakness (03/13/21) Physical Therapy Treatment Note PT-OP-A Visit Information Start: 02/14/21 14:35 Freq: Status: Active Protocol: Document 03/13/21 10:34 DCW (Rec: 03/13/21 12:06 DCW [id number]) Out-Patient Physical Therapy Visit Information Visit Information Visit Type Treatment Note Visit Start Time 10:34 Visit Stop Time 11:15 Total Visit Minutes 41 Visit Number 07/22 Number of FENCE POST DRIVER Visits 0 Evaluation Information Evaluation Date 02/14/21 Precautions Precautions fall risk history of falls PT-OP-B Current Condition Start: 02/14/21 14:35 Freq: Status: Active Protocol: Document 02/14/21 14:36 HH (Rec: 02/14/21 15:16 HH [email or web address]) Current Condition History of Current Condition Onset Date CVA in 2013, multiple falls since. 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 Pt has been seen here at [facility] outpatient therapy services (OT, PT, ST) over the past few years. Pt was recently DC from PT in October, d/t denial of further insurance coverage. reports pt had a recent fall on 02/11 who fell backward while reaching for the fridge door. He hasnt had any falls beside this but his caught him almost fall during walking or getting up from a seated position. She noticed pt has been favoring his RLE by mostly WB through his LLE. Pt tends to drag hig R foot and not WB on it occasionally ,especially in the AM. She also noticed his R LE has been stiff which limits his mobility and increase his fall risks. He is still using a large based quad cane for all mobility and she hopes participating PT will improve his overall endurance, gait quality, strength and balance. Prior Treatments and Tests PT, OT, ST. Has seen improvements with PT Future Testing and Treatments Planned possible OT for RUE Treatment Goals Patient/Caregiver Goals 1. to improve walking endurance 2. to improve pt's overall balance 3. to decrease fall risk Prior Functional Status Baseline Function- ADL's Needs Assist Baseline Function- Mobility Needs Assist Baseline Function- Gait LBQC, R AFO, R hemishoulder sling PT-OP-C Subjective Start: 02/14/21 14:35 Freq: Status: Active Protocol: Document 03/13/21 10:34 DCW (Rec: 03/13/21 12:06 DCW [id number]) OP-PT Subjective Patient Comments Patient Comments Pt's caregiver came in with pt today to inform therapist pt suffered a fall yesterday, and is still pretty wobbly today . Reason for fall is unknown, just gave out. Pt denies and residual pain. PT-OP-D Balance Start: 02/14/21 14:35 Freq: Status: Active Protocol: Document 02/16/21 13:48 HH (Rec: 02/16/21 15:20 HH [id number]) Tinetti Balance Assessment Sitting Balance Sitting Balance Steady, safe Arising from Chair Ability to Arise Able, uses arms to help Attempts to Arise Arises on 1st attempt Standing Balance Immediate Standing Balance Steady w/o support Standing Balance Narrow stance w/o support Nudged Response Steady Standing with Eyes Closed Steady Turning Step Pattern Turning 360 Degrees Discontinuous steps Stability Turning 360 Degrees Steady Sitting Down Sitting Down Safe, steady Gait and Step Initiation of Gait No hesitancy Right Foot Step Length Does pass stance foot Right Foot Step Height Completely clears floor Left Foot Step Length Does pass stance foot Left Foot Step Height Completely clears floor Step Description Step Symmetry Step length not equal Step Continuity Stopping or discontinuity Gait Description Path Description Mild/moderate deviation Trunk Description Marked sway or uses aide Walking Stance Heels apart Scoring and Interpretation Tinetti Composite Score (points) 20 Interpretation of Scores At risk for falls (19-24) Tinetti Impairment Rating from Composite 20 to <40% Impaired (Score 17- Score 22) PT-OP-E Functional Tests Start: 02/14/21 14:35 Freq: Status: Active Protocol: Document 02/14/21 14:36 HH (Rec: 02/14/21 15:16 HH [email or web address]) Functional Tests 6 Minute Walk Test Distance 326 ft Device Used LBQC on RUE Comments 2 point pattern until 260 ft kvng, no breaks taken, 1 foot drag but no LOB 30 Second Sit to Stand Test Score 6 times Comments 22 inch chair, pushed off from LBQC on L, WB mostly on RLE PT-OP-G Mobility & Gait Start: 02/14/21 14:35 Freq: Status: Active Protocol: Document 02/14/21 14:36 HH (Rec: 02/14/21 15:16 HH [email or web address]) OP Mobility Evaluation Bed Mobility Rolling IND Supine to and from Sit IND Transfers Sit to Stand heavy use of LUE to push off from LBQC from a 22 chair pt tends to WB mostly on LLE to push off. OP Gait Assessment Gait Gait Assistance Required: Standby Assistance Assistive Devices Assistive Device Large Based Quad Cane Orthotic/Prosthetic Devices or Brace: Yes Gait Deviations General Gait Pattern Decreased Stride Length, Decreased Feet Clearance, Narrow Based Gait,Step-to Gait Factors Limiting Gait Function Factors Limiting Gait Function Decreased Activity Tolerance, Decreased Strength,Poor Safety Awareness Comments Gait Comments pt amb with step to, narrowed NATE gait, along with toe in gait on LLE 2 point pattern most of the time but 3 point pattern when he gets fatigue PT-OP-M Strength Start: 02/14/21 14:35 Freq: Status: Active Protocol: Document 02/14/21 14:36 HH (Rec: 02/14/21 15:16 HH [email or web address]) Hip Strength Hip Manual Muscle Testing Right Flexion (L2) 2+ Poor+ Extension (S1) 2+ Poor+ Abduction 2+ Poor+ Adduction 2+ Poor+ Left Flexion (L2) 4 Good Extension (S1) 4 Good Abduction 4 Good Adduction 4 Good Knee Strength Knee Manual Muscle Testing Left Flexion (S2) 2 Poor Extension (L3) 3 Fair PT-OP-Q Treatments Start: 02/14/21 14:35 Freq: Status: Active Protocol: Document 03/13/21 10:34 DCW (Rec: 03/13/21 12:06 DCW [id number]) Cardio Equipment Recumbent Elliptical (Biodex) Duration (Minutes) 5 Resistance 4 Seat Position 9 Other B LE's & L UE Gym Equipment Shuttle Recovery Unilateral Squats Resistance 37# Shuttle Recovery Platform Stable Reps/Time x15 bilaterally Therapeutic Exercises Sidelying Exercises 2 Sidelying Exercise Name Hip abduction Side right Reps/Minutes 2x15 Comments AAROM 1 Sidelying Exercise Name Clamshell Side right Reps/Minutes 2x15 Comments AAROM Standing Exercises side stepping Standing Exercise Name side stepping with L foot, RLE in place Side left Equipment Used rail Reps/Minutes 3x3 reps- reduced reps due to R quad spasming- tiring Comments focus WB on RLE, light UE support lateral weight shift Standing Exercise Name lateral wt shift, then forward wt shift over forward stance LE Resistance CG Equipment Used in front mirror, no support Reps/Minutes 6 mins Comments cues on weightshifted to R to facilitate WB on RLE squats Standing Exercise Name standing chair squats Equipment Used 2 inch platform underneath L foot Reps/Minutes 2 x 10 reps Comments at parallel bars with left hand hold PT-OP-T Assessment and Plan Start: 02/14/21 14:35 Freq: Status: Active Protocol: Document 03/13/21 10:34 DCW (Rec: 03/13/21 12:06 DCW [id number]) Physical Therapy Assessment Goals Tinneti Impairment pt scores 20/28 Jail Goal (LTG) pt will be able to reach >22/ 28 on Tinneti to improve his overall balance and walking ability LTG Duration 10 weeks fall risks Impairment pt has a recent fall a week ago Print Project Manager Goal (LTG) pt will not have any falls in a 3 months period. LTG Duration 12 weeks transfers Impairment pt completed 6 STS in 30 seconds from 22 inch chair Short Term Goal (STG) pt will improve his overall LE strength to complete 8 STS in 30 seconds from a 22inch chair with LBQC STG Duration 6 weeks Print Project Manager Goal (LTG) pt will improve his overall LE strength and balance to complete 5 STS in 30 seconds from a 22inch chair without LBQC LTG Duration 12 weeks 6MWT Impairment pt amb 326ft with LBQC during 6MWT Short Term Goal (STG) Pt to amb > 350 during 6 MWT safely with SBA in order to improve his overall home and community mobility. STG Duration 6 weeks Print Project Manager Goal (LTG) Pt to amb > 400 during 6 MWT safely with SBA in order to improve his overall home and community mobility. LTG Duration 12 weeks Gait Impairment gait deviations Short Term Goal (STG) pt will be able to amb for 50 ft with min in toeing LLE in order to reduce risk of falls STG Duration 6 weeks Print Project Manager Goal (LTG) pt will mnimally leaning into QC with gait and min in toeing LLE >100 ft to improve his overall gait efficiency. LTG Duration 12 weeks Assessment Summary Assessment Pt did well today despite his weekend fall. Showing no lasting effects from fall, able to perform to usual level of participation. Physical Therapy Plan Frequency and Duration Frequency of Treatment 2x/Week Duration of Treatment 12 weeks Plan of Care Start Date 02/14/21 Plan of Care End Date 05/15/21 Therapeutic Interventions Therapeutic Interventions Balance Training,Gait Training ,Home Exercise Program,Joint Mobilizations,Manual Therapy, Neuromuscular Re-education, Orthotic/Prosthetic Management ,Patient/Caregiver Education, Self-Care/Home Management,Soft Tissue Mobilization,Taping, Therapeutic Activities, Therapeutic Exercises Modalities Cold Pack/Ice Massage,Electric Stimulation,Hot Packs, Infrared Therapy,Iontophoresis ,Traction- Mechanical, Ultrasound Next Visit Focus/Plan Next Note Type Treatment Note Next Visit Plan Assess response to last tx: metronome during gait, see assessment for next tx suggestions. Continue per PT POC: f/b/ lateral weight shift STS leg press R leg mobility stretch (HS), step taps, marlen stepping
--- NOTE | 2021-03-16 12:03 | PT.OTN ---
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 (03/16/21) Unsteadiness on feet (03/16/21) Weakness (03/16/21) Physical Therapy Treatment Note PT-OP-A Visit Information Start: 02/14/21 14:35 Freq: Status: Active Protocol: Document 03/16/21 11:20 DCW (Rec: 03/16/21 12:02 DCW [id number]) Out-Patient Physical Therapy Visit Information Visit Information Visit Type Treatment Note Visit Start Time 11:20 Visit Stop Time 12:00 Total Visit Minutes 40 Visit Number 08/21 Number of AIRCRAFT GENERAL REPAIR MECHANIC Visits 0 Evaluation Information Evaluation Date 02/14/21 Precautions Precautions fall risk history of falls PT-OP-B Current Condition Start: 02/14/21 14:35 Freq: Status: Active Protocol: Document 02/14/21 14:36 HH (Rec: 02/14/21 15:16 HH [email or web address]) Current Condition History of Current Condition Onset Date CVA in 2013, multiple falls since. 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 Pt has been seen here at [facility] outpatient therapy services (OT, PT, ST) over the past few years. Pt was recently DC from PT in October, d/t denial of further insurance coverage. reports pt had a recent fall on 02/11 who fell backward while reaching for the fridge door. He hasnt had any falls beside this but his caught him almost fall during walking or getting up from a seated position. She noticed pt has been favoring his RLE by mostly WB through his LLE. Pt tends to drag hig R foot and not WB on it occasionally ,especially in the AM. She also noticed his R LE has been stiff which limits his mobility and increase his fall risks. He is still using a large based quad cane for all mobility and she hopes participating PT will improve his overall endurance, gait quality, strength and balance. Prior Treatments and Tests PT, OT, ST. Has seen improvements with PT Future Testing and Treatments Planned possible OT for RUE Treatment Goals Patient/Caregiver Goals 1. to improve walking endurance 2. to improve pt's overall balance 3. to decrease fall risk Prior Functional Status Baseline Function- ADL's Needs Assist Baseline Function- Mobility Needs Assist Baseline Function- Gait LBQC, R AFO, R hemishoulder sling PT-OP-C Subjective Start: 02/14/21 14:35 Freq: Status: Active Protocol: Document 03/16/21 11:20 DCW (Rec: 03/16/21 12:02 DCW [id number]) OP-PT Subjective Patient Comments Patient Comments Pt indicates he is doing well today. Denies any falls since his last visit. PT-OP-D Balance Start: 02/14/21 14:35 Freq: Status: Active Protocol: Document 02/16/21 13:48 HH (Rec: 02/16/21 15:20 HH [id number]) Tinetti Balance Assessment Sitting Balance Sitting Balance Steady, safe Arising from Chair Ability to Arise Able, uses arms to help Attempts to Arise Arises on 1st attempt Standing Balance Immediate Standing Balance Steady w/o support Standing Balance Narrow stance w/o support Nudged Response Steady Standing with Eyes Closed Steady Turning Step Pattern Turning 360 Degrees Discontinuous steps Stability Turning 360 Degrees Steady Sitting Down Sitting Down Safe, steady Gait and Step Initiation of Gait No hesitancy Right Foot Step Length Does pass stance foot Right Foot Step Height Completely clears floor Left Foot Step Length Does pass stance foot Left Foot Step Height Completely clears floor Step Description Step Symmetry Step length not equal Step Continuity Stopping or discontinuity Gait Description Path Description Mild/moderate deviation Trunk Description Marked sway or uses aide Walking Stance Heels apart Scoring and Interpretation Tinetti Composite Score (points) 20 Interpretation of Scores At risk for falls (19-24) Tinetti Impairment Rating from Composite 20 to <40% Impaired (Score 17- Score 22) PT-OP-E Functional Tests Start: 02/14/21 14:35 Freq: Status: Active Protocol: Document 02/14/21 14:36 HH (Rec: 02/14/21 15:16 HH [email or web address]) Functional Tests 6 Minute Walk Test Distance 326 ft Device Used LBQC on RUE Comments 2 point pattern until 260 ft kvng, no breaks taken, 1 foot drag but no LOB 30 Second Sit to Stand Test Score 6 times Comments 22 inch chair, pushed off from LBQC on L, WB mostly on RLE PT-OP-G Mobility & Gait Start: 02/14/21 14:35 Freq: Status: Active Protocol: Document 02/14/21 14:36 HH (Rec: 02/14/21 15:16 HH [email or web address]) OP Mobility Evaluation Bed Mobility Rolling IND Supine to and from Sit IND Transfers Sit to Stand heavy use of LUE to push off from LBQC from a 22 chair pt tends to WB mostly on LLE to push off. OP Gait Assessment Gait Gait Assistance Required: Standby Assistance Assistive Devices Assistive Device Large Based Quad Cane Orthotic/Prosthetic Devices or Brace: Yes Gait Deviations General Gait Pattern Decreased Stride Length, Decreased Feet Clearance, Narrow Based Gait,Step-to Gait Factors Limiting Gait Function Factors Limiting Gait Function Decreased Activity Tolerance, Decreased Strength,Poor Safety Awareness Comments Gait Comments pt amb with step to, narrowed NATE gait, along with toe in gait on LLE 2 point pattern most of the time but 3 point pattern when he gets fatigue PT-OP-M Strength Start: 02/14/21 14:35 Freq: Status: Active Protocol: Document 02/14/21 14:36 (Rec: 02/14/21 15:16 [email or web address]) Hip Strength Hip Manual Muscle Testing Right Flexion (L2) 2+ Poor+ Extension (S1) 2+ Poor+ Abduction 2+ Poor+ Adduction 2+ Poor+ Left Flexion (L2) 4 Good Extension (S1) 4 Good Abduction 4 Good Adduction 4 Good Knee Strength Knee Manual Muscle Testing Left Flexion (S2) 2 Poor Extension (L3) 3 Fair PT-OP-Q Treatments Start: 02/14/21 14:35 Freq: Status: Active Protocol: Document 03/16/21 11:20 DCW (Rec: 03/16/21 12:02 DCW [id number]) Cardio Equipment Recumbent Elliptical (Biod1Mind) Duration (Minutes) 5 Resistance 4 Seat Position 8 Other B LE's & L UE Gym Equipment Shuttle Recovery Unilateral Squats Resistance 37# Shuttle Recovery Platform Stable Reps/Time x15 bilaterally Therapeutic Exercises Supine Exercises single knee fall out Supine Exercise Name single knee fall out Resistance AROM Reps/Minutes 3x5 Comments alternate R and L Sidelying Exercises 2 Sidelying Exercise Name Hip abduction Side right Reps/Minutes 2x15 Comments AAROM 1 Sidelying Exercise Name Clamshell Side right Reps/Minutes 2x15 Comments AAROM Standing Exercises side stepping Standing Exercise Name side stepping with L foot, RLE in place Side left Equipment Used rail Reps/Minutes 3x3 reps- reduced reps due to R quad spasming- tiring Comments focus WB on RLE, light UE support lateral weight shift Standing Exercise Name lateral wt shift, then forward wt shift over forward stance LE Resistance CG Equipment Used in front mirror, no support Reps/Minutes 6 mins Comments cues on weightshifted to R to facilitate WB on RLE squats Standing Exercise Name standing chair squats Equipment Used 2 inch platform underneath L foot Reps/Minutes 2 x 10 reps Comments at parallel bars with left hand hold PT-OP-T Assessment and Plan Start: 02/14/21 14:35 Freq: Status: Active Protocol: Document 03/16/21 11:20 DCW (Rec: 03/16/21 12:02 DCW [id number]) Physical Therapy Assessment Goals Tinneti Impairment pt scores 20/28 Drafter Electrical Goal (LTG) pt will be able to reach >22/ 28 on Tinneti to improve his overall balance and walking ability LTG Duration 10 weeks fall risks Impairment pt has a recent fall a week ago Half-Way Goal (LTG) pt will not have any falls in a 3 months period. LTG Duration 12 weeks transfers Impairment pt completed 6 STS in 30 seconds from 22 inch chair Short Term Goal (STG) pt will improve his overall LE strength to complete 8 STS in 30 seconds from a 22inch chair with LBQC STG Duration 6 weeks Half-Way Goal (LTG) pt will improve his overall LE strength and balance to complete 5 STS in 30 seconds from a 22inch chair without LBQC LTG Duration 12 weeks 6MWT Impairment pt amb 326ft with LBQC during 6MWT Short Term Goal (STG) Pt to amb > 350 during 6 MWT safely with SBA in order to improve his overall home and community mobility. STG Duration 6 weeks Half-Way Goal (LTG) Pt to amb > 400 during 6 MWT safely with SBA in order to improve his overall home and community mobility. LTG Duration 12 weeks Gait Impairment gait deviations Short Term Goal (STG) pt will be able to amb for 50 ft with min in toeing LLE in order to reduce risk of falls STG Duration 6 weeks Drafter Electrical Goal (LTG) pt will mnimally leaning into QC with gait and min in toeing LLE >100 ft to improve his overall gait efficiency. LTG Duration 12 weeks Assessment Summary Assessment Pt showing better control of his right knee when on recumbent stepper, still requires assist for clamshells and hip abduction Physical Therapy Plan Frequency and Duration Frequency of Treatment 2x/Week Duration of Treatment 12 weeks Plan of Care Start Date 02/14/21 Plan of Care End Date 05/15/21 Therapeutic Interventions Therapeutic Interventions Balance Training,Gait Training ,Home Exercise Program,Joint Mobilizations,Manual Therapy, Neuromuscular Re-education, Orthotic/Prosthetic Management ,Patient/Caregiver Education, Self-Care/Home Management,Soft Tissue Mobilization,Taping, Therapeutic Activities, Therapeutic Exercises Modalities Cold Pack/Ice Massage,Electric Stimulation,Hot Packs, Infrared Therapy,Iontophoresis ,Traction- Mechanical, Ultrasound Next Visit Focus/Plan Next Note Type Treatment Note Next Visit Plan Assess response to last tx: metronome during gait, see assessment for next tx suggestions. Continue per PT POC: f/b/ lateral weight shift STS leg press R leg mobility stretch (HS), step taps, marlen stepping
--- NOTE | 2021-03-20 11:17 | PT.OTN ---
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 (03/20/21) Unsteadiness on feet (03/20/21) Weakness (03/20/21) Physical Therapy Treatment Note PT-OP-A Visit Information Start: 02/14/21 14:35 Freq: Status: Active Protocol: Document 03/20/21 10:30 DCW (Rec: 03/20/21 11:17 DCW [id number]) Out-Patient Physical Therapy Visit Information Visit Information Visit Type Treatment Note Visit Start Time 10:30 Visit Stop Time 11:15 Total Visit Minutes 45 Visit Number 09/21 Number of SIGHT EFFECTS SPECIALIST Visits 0 Evaluation Information Evaluation Date 02/14/21 Precautions Precautions fall risk history of falls PT-OP-B Current Condition Start: 02/14/21 14:35 Freq: Status: Active Protocol: Document 02/14/21 14:36 HH (Rec: 02/14/21 15:16 HH [email or web address]) Current Condition History of Current Condition Onset Date CVA in 2013, multiple falls since. 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 Pt has been seen here at [facility] outpatient therapy services (OT, PT, ST) over the past few years. Pt was recently DC from PT in October, d/t denial of further insurance coverage. reports pt had a recent fall on 02/11 who fell backward while reaching for the fridge door. He hasnt had any falls beside this but his caught him almost fall during walking or getting up from a seated position. She noticed pt has been favoring his RLE by mostly WB through his LLE. Pt tends to drag hig R foot and not WB on it occasionally ,especially in the AM. She also noticed his R LE has been stiff which limits his mobility and increase his fall risks. He is still using a large based quad cane for all mobility and she hopes participating PT will improve his overall endurance, gait quality, strength and balance. Prior Treatments and Tests PT, OT, ST. Has seen improvements with PT Future Testing and Treatments Planned possible OT for RUE Treatment Goals Patient/Caregiver Goals 1. to improve walking endurance 2. to improve pt's overall balance 3. to decrease fall risk Prior Functional Status Baseline Function- ADL's Needs Assist Baseline Function- Mobility Needs Assist Baseline Function- Gait LBQC, R AFO, R hemishoulder sling PT-OP-C Subjective Start: 02/14/21 14:35 Freq: Status: Active Protocol: Document 03/20/21 10:30 DCW (Rec: 03/20/21 11:17 DCW [id number]) OP-PT Subjective Patient Comments Patient Comments Pt denies any falls over the weekend. PT-OP-D Balance Start: 02/14/21 14:35 Freq: Status: Active Protocol: Document 02/16/21 13:48 HH (Rec: 02/16/21 15:20 HH [id number]) Tinetti Balance Assessment Sitting Balance Sitting Balance Steady, safe Arising from Chair Ability to Arise Able, uses arms to help Attempts to Arise Arises on 1st attempt Standing Balance Immediate Standing Balance Steady w/o support Standing Balance Narrow stance w/o support Nudged Response Steady Standing with Eyes Closed Steady Turning Step Pattern Turning 360 Degrees Discontinuous steps Stability Turning 360 Degrees Steady Sitting Down Sitting Down Safe, steady Gait and Step Initiation of Gait No hesitancy Right Foot Step Length Does pass stance foot Right Foot Step Height Completely clears floor Left Foot Step Length Does pass stance foot Left Foot Step Height Completely clears floor Step Description Step Symmetry Step length not equal Step Continuity Stopping or discontinuity Gait Description Path Description Mild/moderate deviation Trunk Description Marked sway or uses aide Walking Stance Heels apart Scoring and Interpretation Tinetti Composite Score (points) 20 Interpretation of Scores At risk for falls (19-24) Tinetti Impairment Rating from Composite 20 to <40% Impaired (Score 17- Score 22) PT-OP-E Functional Tests Start: 02/14/21 14:35 Freq: Status: Active Protocol: Document 02/14/21 14:36 HH (Rec: 02/14/21 15:16 HH [email or web address]) Functional Tests 6 Minute Walk Test Distance 326 ft Device Used LBQC on RUE Comments 2 point pattern until 260 ft kvng, no breaks taken, 1 foot drag but no LOB 30 Second Sit to Stand Test Score 6 times Comments 22 inch chair, pushed off from LBQC on L, WB mostly on RLE PT-OP-G Mobility & Gait Start: 02/14/21 14:35 Freq: Status: Active Protocol: Document 02/14/21 14:36 HH (Rec: 02/14/21 15:16 [email or web address]) OP Mobility Evaluation Bed Mobility Rolling IND Supine to and from Sit IND Transfers Sit to Stand heavy use of LUE to push off from LBQC from a 22 chair pt tends to WB mostly on LLE to push off. OP Gait Assessment Gait Gait Assistance Required: Standby Assistance Assistive Devices Assistive Device Large Based Quad Cane Orthotic/Prosthetic Devices or Brace: Yes Gait Deviations General Gait Pattern Decreased Stride Length, Decreased Feet Clearance, Narrow Based Gait,Step-to Gait Factors Limiting Gait Function Factors Limiting Gait Function Decreased Activity Tolerance, Decreased Strength,Poor Safety Awareness Comments Gait Comments pt amb with step to, narrowed NATE gait, along with toe in gait on LLE 2 point pattern most of the time but 3 point pattern when he gets fatigue PT-OP-M Strength Start: 02/14/21 14:35 Freq: Status: Active Protocol: Document 02/14/21 14:36 HH (Rec: 02/14/21 15:16 [email or web address]) Hip Strength Hip Manual Muscle Testing Right Flexion (L2) 2+ Poor+ Extension (S1) 2+ Poor+ Abduction 2+ Poor+ Adduction 2+ Poor+ Left Flexion (L2) 4 Good Extension (S1) 4 Good Abduction 4 Good Adduction 4 Good Knee Strength Knee Manual Muscle Testing Left Flexion (S2) 2 Poor Extension (L3) 3 Fair PT-OP-Q Treatments Start: 02/14/21 14:35 Freq: Status: Active Protocol: Document 03/20/21 10:30 DCW (Rec: 03/20/21 11:17 DCW [id number]) Cardio Equipment Recumbent Elliptical ([employer]) Duration (Minutes) 5 Resistance 5 Seat Position 9 Other B LE's & L UE Gym Equipment Shuttle Recovery Unilateral Squats Resistance 37# Shuttle Recovery Platform Stable Reps/Time x15 bilaterally Bilateral Squats Details Bilateral Squats ball between knees Resistance 50# Shuttle Recovery Platform Stable Reps/Time x15 Therapeutic Exercises Supine Exercises single knee fall out Supine Exercise Name single knee fall out Resistance AROM Reps/Minutes 3x5 Comments alternate R and L Sidelying Exercises 2 Sidelying Exercise Name Hip abduction Side right Reps/Minutes 2x15 Comments AAROM 1 Sidelying Exercise Name Clamshell Side right Reps/Minutes 2x15 Comments AAROM Standing Exercises side stepping Standing Exercise Name side stepping with L foot, RLE in place Side left Equipment Used rail Reps/Minutes 3x3 reps- reduced reps due to R quad spasming- tiring Comments focus WB on RLE, light UE support lateral weight shift Standing Exercise Name lateral wt shift, then forward wt shift over forward stance LE Resistance CG Equipment Used in front mirror, no support Reps/Minutes 6 mins Comments cues on weightshifted to R to facilitate WB on RLE Neuro Re-Education Treatment Balance Activities SLS Details SLS Surface firm Comments Unilateral UE support heel toe gait Details heel toe gait in parallel bars Reps/Duration 2 xms the length of parallel bars PT-OP-T Assessment and Plan Start: 02/14/21 14:35 Freq: Status: Active Protocol: Document 03/20/21 10:30 DCW (Rec: 03/20/21 11:17 DCW [id number]) Physical Therapy Assessment Goals Tinneti Impairment pt scores 20/28 Correction Goal (LTG) pt will be able to reach >22/ 28 on Tinneti to improve his overall balance and walking ability LTG Duration 10 weeks fall risks Impairment pt has a recent fall a week ago Correction Goal (LTG) pt will not have any falls in a 3 months period. LTG Duration 12 weeks transfers Impairment pt completed 6 STS in 30 seconds from 22 inch chair Short Term Goal (STG) pt will improve his overall LE strength to complete 8 STS in 30 seconds from a 22inch chair with LBQC STG Duration 6 weeks Correction Goal (LTG) pt will improve his overall LE strength and balance to complete 5 STS in 30 seconds from a 22inch chair without LBQC LTG Duration 12 weeks 6MWT Impairment pt amb 326ft with LBQC during 6MWT Short Term Goal (STG) Pt to amb > 350 during 6 MWT safely with SBA in order to improve his overall home and community mobility. STG Duration 6 weeks Stock Buyer Goal (LTG) Pt to amb > 400 during 6 MWT safely with SBA in order to improve his overall home and community mobility. LTG Duration 12 weeks Gait Impairment gait deviations Short Term Goal (STG) pt will be able to amb for 50 ft with min in toeing LLE in order to reduce risk of falls STG Duration 6 weeks Stock Buyer Goal (LTG) pt will mnimally leaning into QC with gait and min in toeing LLE >100 ft to improve his overall gait efficiency. LTG Duration 12 weeks Assessment Summary Assessment Pt tolerated treatment well today, reduced need for rest breaks. Pt did seems to be moving a little more slowly than usual today, increased delay between receiving instructions and initiating movement, although may just be tired. Physical Therapy Plan Frequency and Duration Frequency of Treatment 2x/Week Duration of Treatment 12 weeks Plan of Care Start Date 02/14/21 Plan of Care End Date 05/15/21 Therapeutic Interventions Therapeutic Interventions Balance Training,Gait Training ,Home Exercise Program,Joint Mobilizations,Manual Therapy, Neuromuscular Re-education, Orthotic/Prosthetic Management ,Patient/Caregiver Education, Self-Care/Home Management,Soft Tissue Mobilization,Taping, Therapeutic Activities, Therapeutic Exercises Modalities Cold Pack/Ice Massage,Electric Stimulation,Hot Packs, Infrared Therapy,Iontophoresis ,Traction- Mechanical, Ultrasound Next Visit Focus/Plan Next Note Type Treatment Note Next Visit Plan Assess response to last tx: metronome during gait, see assessment for next tx suggestions. Continue per PT POC: f/b/ lateral weight shift STS leg press R leg mobility stretch (HS), step taps, marlen stepping
--- NOTE | 2021-03-23 11:57 | PT.OTN ---
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 (03/23/21) Unsteadiness on feet (03/23/21) Weakness (03/23/21) Physical Therapy Treatment Note PT-OP-A Visit Information Start: 02/14/21 14:35 Freq: Status: Active Protocol: Document 03/23/21 11:19 DCW (Rec: 03/23/21 11:56 DCW [id number]) Out-Patient Physical Therapy Visit Information Visit Information Visit Type Treatment Note Visit Start Time 11:19 Visit Stop Time 12:00 Total Visit Minutes 41 Visit Number 10/21 Number of COTTON BROKER Visits 0 Evaluation Information Evaluation Date 02/14/21 Precautions Precautions fall risk history of falls PT-OP-B Current Condition Start: 02/14/21 14:35 Freq: Status: Active Protocol: Document 02/14/21 14:36 HH (Rec: 02/14/21 15:16 HH [email or web address]) Current Condition History of Current Condition Onset Date CVA in 2013, multiple falls since. 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 Pt has been seen here at [facility] outpatient therapy services (OT, PT, ST) over the past few years. Pt was recently DC from PT in October, d/t denial of further insurance coverage. reports pt had a recent fall on 02/11 who fell backward while reaching for the fridge door. He hasnt had any falls beside this but his caught him almost fall during walking or getting up from a seated position. She noticed pt has been favoring his RLE by mostly WB through his LLE. Pt tends to drag hig R foot and not WB on it occasionally ,especially in the AM. She also noticed his R LE has been stiff which limits his mobility and increase his fall risks. He is still using a large based quad cane for all mobility and she hopes participating PT will improve his overall endurance, gait quality, strength and balance. Prior Treatments and Tests PT, OT, ST. Has seen improvements with PT Future Testing and Treatments Planned possible OT for RUE Treatment Goals Patient/Caregiver Goals 1. to improve walking endurance 2. to improve pt's overall balance 3. to decrease fall risk Prior Functional Status Baseline Function- ADL's Needs Assist Baseline Function- Mobility Needs Assist Baseline Function- Gait LBQC, R AFO, R hemishoulder sling PT-OP-C Subjective Start: 02/14/21 14:35 Freq: Status: Active Protocol: Document 03/23/21 11:19 DCW (Rec: 03/23/21 11:56 DCW [id number]) OP-PT Subjective Patient Comments Patient Comments Pt indicates he is doing well today. PT-OP-D Balance Start: 02/14/21 14:35 Freq: Status: Active Protocol: Document 02/16/21 13:48 HH (Rec: 02/16/21 15:20 HH [id number]) Tinetti Balance Assessment Sitting Balance Sitting Balance Steady, safe Arising from Chair Ability to Arise Able, uses arms to help Attempts to Arise Arises on 1st attempt Standing Balance Immediate Standing Balance Steady w/o support Standing Balance Narrow stance w/o support Nudged Response Steady Standing with Eyes Closed Steady Turning Step Pattern Turning 360 Degrees Discontinuous steps Stability Turning 360 Degrees Steady Sitting Down Sitting Down Safe, steady Gait and Step Initiation of Gait No hesitancy Right Foot Step Length Does pass stance foot Right Foot Step Height Completely clears floor Left Foot Step Length Does pass stance foot Left Foot Step Height Completely clears floor Step Description Step Symmetry Step length not equal Step Continuity Stopping or discontinuity Gait Description Path Description Mild/moderate deviation Trunk Description Marked sway or uses aide Walking Stance Heels apart Scoring and Interpretation Tinetti Composite Score (points) 20 Interpretation of Scores At risk for falls (19-24) Tinetti Impairment Rating from Composite 20 to <40% Impaired (Score 17- Score 22) PT-OP-E Functional Tests Start: 02/14/21 14:35 Freq: Status: Active Protocol: Document 02/14/21 14:36 HH (Rec: 02/14/21 15:16 HH [email or web address]) Functional Tests 6 Minute Walk Test Distance 326 ft Device Used LBQC on RUE Comments 2 point pattern until 260 ft kvng, no breaks taken, 1 foot drag but no LOB 30 Second Sit to Stand Test Score 6 times Comments 22 inch chair, pushed off from LBQC on L, WB mostly on RLE PT-OP-G Mobility & Gait Start: 02/14/21 14:35 Freq: Status: Active Protocol: Document 02/14/21 14:36 HH (Rec: 02/14/21 15:16 [email or web address]) OP Mobility Evaluation Bed Mobility Rolling IND Supine to and from Sit IND Transfers Sit to Stand heavy use of LUE to push off from LBQC from a 22 chair pt tends to WB mostly on LLE to push off. OP Gait Assessment Gait Gait Assistance Required: Standby Assistance Assistive Devices Assistive Device Large Based Quad Cane Orthotic/Prosthetic Devices or Brace: Yes Gait Deviations General Gait Pattern Decreased Stride Length, Decreased Feet Clearance, Narrow Based Gait,Step-to Gait Factors Limiting Gait Function Factors Limiting Gait Function Decreased Activity Tolerance, Decreased Strength,Poor Safety Awareness Comments Gait Comments pt amb with step to, narrowed NATE gait, along with toe in gait on LLE 2 point pattern most of the time but 3 point pattern when he gets fatigue PT-OP-M Strength Start: 02/14/21 14:35 Freq: Status: Active Protocol: Document 02/14/21 14:36 (Rec: 02/14/21 15:16 [email or web address]) Hip Strength Hip Manual Muscle Testing Right Flexion (L2) 2+ Poor+ Extension (S1) 2+ Poor+ Abduction 2+ Poor+ Adduction 2+ Poor+ Left Flexion (L2) 4 Good Extension (S1) 4 Good Abduction 4 Good Adduction 4 Good Knee Strength Knee Manual Muscle Testing Left Flexion (S2) 2 Poor Extension (L3) 3 Fair PT-OP-Q Treatments Start: 02/14/21 14:35 Freq: Status: Active Protocol: Document 03/23/21 11:19 DCW (Rec: 03/23/21 11:56 DCW [id number]) Cardio Equipment Recumbent Elliptical ([employer]) Duration (Minutes) 5 Resistance 5 Seat Position 9 Other B LE's & L UE Gym Equipment Shuttle Recovery Unilateral Squats Resistance 37# Shuttle Recovery Platform Stable Reps/Time x15 bilaterally Bilateral Squats Details Bilateral Squats ball between knees Resistance 50# Shuttle Recovery Platform Stable Reps/Time x15 Therapeutic Exercises Sitting Exercises HS Curl Sitting Exercise Name HS Curl Side bilateral Resistance Lv 2 Equipment Used T-band Standing Exercises side stepping Standing Exercise Name side stepping with L foot, RLE in place Side left Equipment Used rail Reps/Minutes 3x3 reps- reduced reps due to R quad spasming- tiring Comments focus WB on RLE, light UE support lateral weight shift Standing Exercise Name lateral wt shift, then forward wt shift over forward stance LE Resistance CG Equipment Used in front mirror, no support Reps/Minutes 6 mins Comments cues on weightshifted to R to facilitate WB on RLE squats Standing Exercise Name standing chair squats Equipment Used 2 inch platform underneath L foot Reps/Minutes 2 x 10 reps Comments at parallel bars with left hand hold Orthotic/Prosthetic Management and Training Treatment Details of Training Fix AFO strapping PT-OP-T Assessment and Plan Start: 02/14/21 14:35 Freq: Status: Active Protocol: Document 03/23/21 11:19 DCW (Rec: 03/23/21 11:56 DCW [id number]) Physical Therapy Assessment Goals Tinneti Impairment pt scores 20/28 Senior Living Goal (LTG) pt will be able to reach >22/ 28 on Tinneti to improve his overall balance and walking ability LTG Duration 10 weeks fall risks Impairment pt has a recent fall a week ago Skin Diver Goal (LTG) pt will not have any falls in a 3 months period. LTG Duration 12 weeks transfers Impairment pt completed 6 STS in 30 seconds from 22 inch chair Short Term Goal (STG) pt will improve his overall LE strength to complete 8 STS in 30 seconds from a 22inch chair with LBQC STG Duration 6 weeks Skin Diver Goal (LTG) pt will improve his overall LE strength and balance to complete 5 STS in 30 seconds from a 22inch chair without LBQC LTG Duration 12 weeks 6MWT Impairment pt amb 326ft with LBQC during 6MWT Short Term Goal (STG) Pt to amb > 350 during 6 MWT safely with SBA in order to improve his overall home and community mobility. STG Duration 6 weeks Senior Living Goal (LTG) Pt to amb > 400 during 6 MWT safely with SBA in order to improve his overall home and community mobility. LTG Duration 12 weeks Gait Impairment gait deviations Short Term Goal (STG) pt will be able to amb for 50 ft with min in toeing LLE in order to reduce risk of falls STG Duration 6 weeks Senior Living Goal (LTG) pt will mnimally leaning into QC with gait and min in toeing LLE >100 ft to improve his overall gait efficiency. LTG Duration 12 weeks Assessment Summary Assessment Fixed pt's AFO strapping issues. Pt somewhat fatigued today, quit a few of his exercises secondary to exhaustion. Physical Therapy Plan Frequency and Duration Frequency of Treatment 2x/Week Duration of Treatment 12 weeks Plan of Care Start Date 02/14/21 Plan of Care End Date 05/15/21 Therapeutic Interventions Therapeutic Interventions Balance Training,Gait Training ,Home Exercise Program,Joint Mobilizations,Manual Therapy, Neuromuscular Re-education, Orthotic/Prosthetic Management ,Patient/Caregiver Education, Self-Care/Home Management,Soft Tissue Mobilization,Taping, Therapeutic Activities, Therapeutic Exercises Modalities Cold Pack/Ice Massage,Electric Stimulation,Hot Packs, Infrared Therapy,Iontophoresis ,Traction- Mechanical, Ultrasound Next Visit Focus/Plan Next Note Type Treatment Note Next Visit Plan Assess response to last tx: metronome during gait, see assessment for next tx suggestions. Continue per PT POC: f/b/ lateral weight shift STS leg press R leg mobility stretch (HS), step taps, marlen stepping
--- NOTE | 2021-04-25 16:51 | PT.OTN ---
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 (04/25/21) Unsteadiness on feet (04/25/21) Weakness (04/25/21) Physical Therapy Treatment Note PT-OP-A Visit Information Start: 02/14/21 14:35 Freq: Status: Active Protocol: Document 04/25/21 16:00 DCW (Rec: 04/25/21 16:51 DCW [id number]) Out-Patient Physical Therapy Visit Information Visit Information Visit Type Treatment Note Visit Start Time 16:00 Visit Stop Time 16:45 Total Visit Minutes 42 Visit Number Number of RAMP AGENT Visits 0 Evaluation Information Evaluation Date 02/14/21 Precautions Precautions fall risk history of falls PT-OP-B Current Condition Start: 02/14/21 14:35 Freq: Status: Active Protocol: Document 02/14/21 14:36 HH (Rec: 02/14/21 15:16 HH [email or web address]) Current Condition History of Current Condition Onset Date CVA in 2013, multiple falls since. 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 Pt has been seen here at [facility] outpatient therapy services (OT, PT, ST) over the past few years. Pt was recently DC from PT in October, d/t denial of further insurance coverage. reports pt had a recent fall on 02/11 who fell backward while reaching for the fridge door. He hasnt had any falls beside this but his caught him almost fall during walking or getting up from a seated position. She noticed pt has been favoring his RLE by mostly WB through his LLE. Pt tends to drag hig R foot and not WB on it occasionally ,especially in the AM. She also noticed his R LE has been stiff which limits his mobility and increase his fall risks. He is still using a large based quad cane for all mobility and she hopes participating PT will improve his overall endurance, gait quality, strength and balance. Prior Treatments and Tests PT, OT, ST. Has seen improvements with PT Future Testing and Treatments Planned possible OT for RUE Treatment Goals Patient/Caregiver Goals 1. to improve walking endurance 2. to improve pt's overall balance 3. to decrease fall risk Prior Functional Status Baseline Function- ADL's Needs Assist Baseline Function- Mobility Needs Assist Baseline Function- Gait LBQC, R AFO, R hemishoulder sling PT-OP-C Subjective Start: 02/14/21 14:35 Freq: Status: Active Protocol: Document 04/25/21 16:00 DCW (Rec: 04/25/21 16:51 DCW [id number]) OP-PT Subjective Patient Comments Patient Comments Pt's reports he jhas fallen twice over the past week. Notes what seems to be happening is his right leg spasms and goes into an inverted position, and pt then just loses his balance and falls. Unclear why this has just recently started to occur . PT-OP-D Balance Start: 02/14/21 14:35 Freq: Status: Active Protocol: Document 02/16/21 13:48 HH (Rec: 02/16/21 15:20 HH [id number]) Tinetti Balance Assessment Sitting Balance Sitting Balance Steady, safe Arising from Chair Ability to Arise Able, uses arms to help Attempts to Arise Arises on 1st attempt Standing Balance Immediate Standing Balance Steady w/o support Standing Balance Narrow stance w/o support Nudged Response Steady Standing with Eyes Closed Steady Turning Step Pattern Turning 360 Degrees Discontinuous steps Stability Turning 360 Degrees Steady Sitting Down Sitting Down Safe, steady Gait and Step Initiation of Gait No hesitancy Right Foot Step Length Does pass stance foot Right Foot Step Height Completely clears floor Left Foot Step Length Does pass stance foot Left Foot Step Height Completely clears floor Step Description Step Symmetry Step length not equal Step Continuity Stopping or discontinuity Gait Description Path Description Mild/moderate deviation Trunk Description Marked sway or uses aide Walking Stance Heels apart Scoring and Interpretation Tinetti Composite Score (points) 20 Interpretation of Scores At risk for falls (19-24) Tinetti Impairment Rating from Composite 20 to <40% Impaired (Score 17- Score 22) PT-OP-E Functional Tests Start: 02/14/21 14:35 Freq: Status: Active Protocol: Document 02/14/21 14:36 HH (Rec: 02/14/21 15:16 HH [email or web address]) Functional Tests 6 Minute Walk Test Distance 326 ft Device Used LBQC on RUE Comments 2 point pattern until 260 ft kvng, no breaks taken, 1 foot drag but no LOB 30 Second Sit to Stand Test Score 6 times Comments 22 inch chair, pushed off from LBQC on L, WB mostly on RLE PT-OP-G Mobility & Gait Start: 02/14/21 14:35 Freq: Status: Active Protocol: Document 02/14/21 14:36 HH (Rec: 02/14/21 15:16 HH [email or web address]) OP Mobility Evaluation Bed Mobility Rolling IND Supine to and from Sit IND Transfers Sit to Stand heavy use of LUE to push off from LBQC from a 22 chair pt tends to WB mostly on LLE to push off. OP Gait Assessment Gait Gait Assistance Required: Standby Assistance Assistive Devices Assistive Device Large Based Quad Cane Orthotic/Prosthetic Devices or Brace: Yes Gait Deviations General Gait Pattern Decreased Stride Length, Decreased Feet Clearance, Narrow Based Gait,Step-to Gait Factors Limiting Gait Function Factors Limiting Gait Function Decreased Activity Tolerance, Decreased Strength,Poor Safety Awareness Comments Gait Comments pt amb with step to, narrowed NATE gait, along with toe in gait on LLE 2 point pattern most of the time but 3 point pattern when he gets fatigue PT-OP-M Strength Start: 02/14/21 14:35 Freq: Status: Active Protocol: Document 02/14/21 14:36 (Rec: 02/14/21 15:16 [email or web address]) Hip Strength Hip Manual Muscle Testing Right Flexion (L2) 2+ Poor+ Extension (S1) 2+ Poor+ Abduction 2+ Poor+ Adduction 2+ Poor+ Left Flexion (L2) 4 Good Extension (S1) 4 Good Abduction 4 Good Adduction 4 Good Knee Strength Knee Manual Muscle Testing Left Flexion (S2) 2 Poor Extension (L3) 3 Fair PT-OP-Q Treatments Start: 02/14/21 14:35 Freq: Status: Active Protocol: Document 04/25/21 16:00 DCW (Rec: 04/25/21 16:51 DCW [id number]) Cardio Equipment Recumbent Elliptical ([employer]) Duration (Minutes) 5 Resistance 5 Seat Position 9 Other B LE's & L UE Gym Equipment Shuttle Recovery Unilateral Squats Resistance 37# Shuttle Recovery Platform Stable Reps/Time x15 bilaterally Bilateral Squats Details Bilateral Squats ball between knees Resistance 50# Shuttle Recovery Platform Stable Reps/Time x15 Therapeutic Exercises Standing Exercises side stepping Standing Exercise Name side stepping with L foot, RLE in place Side left Equipment Used rail Reps/Minutes 3x3 reps- reduced reps due to R quad spasming- tiring Comments focus WB on RLE, light UE support Neuro Re-Education Treatment Balance Activities Putting Details Standing putting Comments R hand strapped to putter Focus on weight shift, trunk rotation, standing balance SLS Details SLS Surface firm Comments Unilateral UE support PT-OP-T Assessment and Plan Start: 02/14/21 14:35 Freq: Status: Active Protocol: Document 04/25/21 16:00 DCW (Rec: 04/25/21 16:51 DCW [id number]) Physical Therapy Assessment Goals Tinneti Impairment pt scores 20/28 Senior Visual Designer Goal (LTG) pt will be able to reach >22/ 28 on Tinneti to improve his overall balance and walking ability LTG Duration 10 weeks fall risks Impairment pt has a recent fall a week ago Senior Visual Designer Goal (LTG) pt will not have any falls in a 3 months period. LTG Duration 12 weeks transfers Impairment pt completed 6 STS in 30 seconds from 22 inch chair Short Term Goal (STG) pt will improve his overall LE strength to complete 8 STS in 30 seconds from a 22inch chair with LBQC STG Duration 6 weeks Senior Visual Designer Goal (LTG) pt will improve his overall LE strength and balance to complete 5 STS in 30 seconds from a 22inch chair without LBQC LTG Duration 12 weeks 6MWT Impairment pt amb 326ft with LBQC during 6MWT Short Term Goal (STG) Pt to amb > 350 during 6 MWT safely with SBA in order to improve his overall home and community mobility. STG Duration 6 weeks Care Home Goal (LTG) Pt to amb > 400 during 6 MWT safely with SBA in order to improve his overall home and community mobility. LTG Duration 12 weeks Gait Impairment gait deviations Short Term Goal (STG) pt will be able to amb for 50 ft with min in toeing LLE in order to reduce risk of falls STG Duration 6 weeks Care Home Goal (LTG) pt will mnimally leaning into QC with gait and min in toeing LLE >100 ft to improve his overall gait efficiency. LTG Duration 12 weeks Assessment Summary Assessment Pt did well overall today, always more involved in therapy when able to include things pt enjoys like putting. Physical Therapy Plan Frequency and Duration Frequency of Treatment 2x/Week Duration of Treatment 12 weeks Plan of Care Start Date 02/14/21 Plan of Care End Date 05/15/21 Therapeutic Interventions Therapeutic Interventions Balance Training,Gait Training ,Home Exercise Program,Joint Mobilizations,Manual Therapy, Neuromuscular Re-education, Orthotic/Prosthetic Management ,Patient/Caregiver Education, Self-Care/Home Management,Soft Tissue Mobilization,Taping, Therapeutic Activities, Therapeutic Exercises Modalities Cold Pack/Ice Massage,Electric Stimulation,Hot Packs, Infrared Therapy,Iontophoresis ,Traction- Mechanical, Ultrasound Next Visit Focus/Plan Next Note Type Treatment Note Next Visit Plan Continue per PT POC: f/b/ lateral weight shift STS leg press R leg mobility stretch (HS), step taps, marlen stepping
--- NOTE | 2021-04-28 11:58 | PT.OTN ---
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 (04/28/21) Unsteadiness on feet (04/28/21) Weakness (04/28/21) Physical Therapy Treatment Note PT-OP-A Visit Information Start: 02/14/21 14:35 Freq: Status: Active Protocol: Document 04/28/21 11:15 DCW (Rec: 04/28/21 11:57 DCW [id number]) Out-Patient Physical Therapy Visit Information Visit Information Visit Type Treatment Note Visit Start Time 11:15 Visit Stop Time 12:00 Total Visit Minutes 45 Visit Number 14/18 Number of POTATO CHIP PROCESSING SUPERVISOR Visits 0 Evaluation Information Evaluation Date 02/14/21 Precautions Precautions fall risk history of falls PT-OP-B Current Condition Start: 02/14/21 14:35 Freq: Status: Active Protocol: Document 02/14/21 14:36 HH (Rec: 02/14/21 15:16 HH [email or web address]) Current Condition History of Current Condition Onset Date CVA in 2013, multiple falls since. 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 Pt has been seen here at [facility] outpatient therapy services (OT, PT, ST) over the past few years. Pt was recently DC from PT in October, d/t denial of further insurance coverage. reports pt had a recent fall on 02/11 who fell backward while reaching for the fridge door. He hasnt had any falls beside this but his caught him almost fall during walking or getting up from a seated position. She noticed pt has been favoring his RLE by mostly WB through his LLE. Pt tends to drag hig R foot and not WB on it occasionally ,especially in the AM. She also noticed his R LE has been stiff which limits his mobility and increase his fall risks. He is still using a large based quad cane for all mobility and she hopes participating PT will improve his overall endurance, gait quality, strength and balance. Prior Treatments and Tests PT, OT, ST. Has seen improvements with PT Future Testing and Treatments Planned possible OT for RUE Treatment Goals Patient/Caregiver Goals 1. to improve walking endurance 2. to improve pt's overall balance 3. to decrease fall risk Prior Functional Status Baseline Function- ADL's Needs Assist Baseline Function- Mobility Needs Assist Baseline Function- Gait LBQC, R AFO, R hemishoulder sling PT-OP-C Subjective Start: 02/14/21 14:35 Freq: Status: Active Protocol: Document 04/28/21 11:15 DCW (Rec: 04/28/21 11:57 DCW [id number]) OP-PT Subjective Patient Comments Patient Comments Pt indicates he is doing well today. PT-OP-D Balance Start: 02/14/21 14:35 Freq: Status: Active Protocol: Document 02/16/21 13:48 HH (Rec: 02/16/21 15:20 HH [id number]) Tinetti Balance Assessment Sitting Balance Sitting Balance Steady, safe Arising from Chair Ability to Arise Able, uses arms to help Attempts to Arise Arises on 1st attempt Standing Balance Immediate Standing Balance Steady w/o support Standing Balance Narrow stance w/o support Nudged Response Steady Standing with Eyes Closed Steady Turning Step Pattern Turning 360 Degrees Discontinuous steps Stability Turning 360 Degrees Steady Sitting Down Sitting Down Safe, steady Gait and Step Initiation of Gait No hesitancy Right Foot Step Length Does pass stance foot Right Foot Step Height Completely clears floor Left Foot Step Length Does pass stance foot Left Foot Step Height Completely clears floor Step Description Step Symmetry Step length not equal Step Continuity Stopping or discontinuity Gait Description Path Description Mild/moderate deviation Trunk Description Marked sway or uses aide Walking Stance Heels apart Scoring and Interpretation Tinetti Composite Score (points) 20 Interpretation of Scores At risk for falls (19-24) Tinetti Impairment Rating from Composite 20 to <40% Impaired (Score 17- Score 22) PT-OP-E Functional Tests Start: 02/14/21 14:35 Freq: Status: Active Protocol: Document 02/14/21 14:36 HH (Rec: 02/14/21 15:16 HH [email or web address]) Functional Tests 6 Minute Walk Test Distance 326 ft Device Used LBQC on RUE Comments 2 point pattern until 260 ft kvng, no breaks taken, 1 foot drag but no LOB 30 Second Sit to Stand Test Score 6 times Comments 22 inch chair, pushed off from LBQC on L, WB mostly on RLE PT-OP-G Mobility & Gait Start: 02/14/21 14:35 Freq: Status: Active Protocol: Document 02/14/21 14:36 HH (Rec: 02/14/21 15:16 [email or web address]) OP Mobility Evaluation Bed Mobility Rolling IND Supine to and from Sit IND Transfers Sit to Stand heavy use of LUE to push off from LBQC from a 22 chair pt tends to WB mostly on LLE to push off. OP Gait Assessment Gait Gait Assistance Required: Standby Assistance Assistive Devices Assistive Device Large Based Quad Cane Orthotic/Prosthetic Devices or Brace: Yes Gait Deviations General Gait Pattern Decreased Stride Length, Decreased Feet Clearance, Narrow Based Gait,Step-to Gait Factors Limiting Gait Function Factors Limiting Gait Function Decreased Activity Tolerance, Decreased Strength,Poor Safety Awareness Comments Gait Comments pt amb with step to, narrowed NATE gait, along with toe in gait on LLE 2 point pattern most of the time but 3 point pattern when he gets fatigue PT-OP-M Strength Start: 02/14/21 14:35 Freq: Status: Active Protocol: Document 02/14/21 14:36 (Rec: 02/14/21 15:16 [email or web address]) Hip Strength Hip Manual Muscle Testing Right Flexion (L2) 2+ Poor+ Extension (S1) 2+ Poor+ Abduction 2+ Poor+ Adduction 2+ Poor+ Left Flexion (L2) 4 Good Extension (S1) 4 Good Abduction 4 Good Adduction 4 Good Knee Strength Knee Manual Muscle Testing Left Flexion (S2) 2 Poor Extension (L3) 3 Fair PT-OP-Q Treatments Start: 02/14/21 14:35 Freq: Status: Active Protocol: Document 04/28/21 11:15 DCW (Rec: 04/28/21 11:57 DCW [id number]) Cardio Equipment Recumbent Elliptical ([employer]ett[employer]) Duration (Minutes) 5 Resistance 5 Seat Position 9 Other B LE's & L UE Gym Equipment Shuttle Recovery Unilateral Squats Resistance 37# Shuttle Recovery Platform Stable Reps/Time x15 bilaterally Bilateral Squats Details Bilateral Squats ball between knees Resistance 62# Shuttle Recovery Platform Stable Reps/Time x15 Therapeutic Exercises Standing Exercises side stepping Standing Exercise Name side stepping with L foot, RLE in place Side left Equipment Used rail Reps/Minutes 3x3 reps- reduced reps due to R quad spasming- tiring Comments focus WB on RLE, light UE support lateral weight shift Standing Exercise Name lateral wt shift, then forward wt shift over forward stance LE Resistance CG Equipment Used in front mirror, no support Reps/Minutes 6 mins Comments cues on weightshifted to R to facilitate WB on RLE Neuro Re-Education Treatment Balance Activities Putting Details Standing putting Comments R hand strapped to putter Focus on weight shift, trunk rotation, standing balance SLS Details SLS Surface firm Comments Unilateral UE support PT-OP-T Assessment and Plan Start: 02/14/21 14:35 Freq: Status: Active Protocol: Document 04/28/21 11:15 DCW (Rec: 04/28/21 11:57 DCW [id number]) Physical Therapy Assessment Goals Tinneti Impairment pt scores 20/28 Halfway Goal (LTG) pt will be able to reach >22/ 28 on Tinneti to improve his overall balance and walking ability LTG Duration 10 weeks fall risks Impairment pt has a recent fall a week ago Sap Basis Administrator Goal (LTG) pt will not have any falls in a 3 months period. LTG Duration 12 weeks transfers Impairment pt completed 6 STS in 30 seconds from 22 inch chair Short Term Goal (STG) pt will improve his overall LE strength to complete 8 STS in 30 seconds from a 22inch chair with LBQC STG Duration 6 weeks Halfway Goal (LTG) pt will improve his overall LE strength and balance to complete 5 STS in 30 seconds from a 22inch chair without LBQC LTG Duration 12 weeks 6MWT Impairment pt amb 326ft with LBQC during 6MWT Short Term Goal (STG) Pt to amb > 350 during 6 MWT safely with SBA in order to improve his overall home and community mobility. STG Duration 6 weeks Halfway Goal (LTG) Pt to amb > 400 during 6 MWT safely with SBA in order to improve his overall home and community mobility. LTG Duration 12 weeks Gait Impairment gait deviations Short Term Goal (STG) pt will be able to amb for 50 ft with min in toeing LLE in order to reduce risk of falls STG Duration 6 weeks Halfway Goal (LTG) pt will mnimally leaning into QC with gait and min in toeing LLE >100 ft to improve his overall gait efficiency. LTG Duration 12 weeks Assessment Summary Assessment Pt continuing to show some increased willingness to participate in therapy the past few weeks. Physical Therapy Plan Frequency and Duration Frequency of Treatment 2x/Week Duration of Treatment 12 weeks Plan of Care Start Date 02/14/21 Plan of Care End Date 05/15/21 Therapeutic Interventions Therapeutic Interventions Balance Training,Gait Training ,Home Exercise Program,Joint Mobilizations,Manual Therapy, Neuromuscular Re-education, Orthotic/Prosthetic Management ,Patient/Caregiver Education, Self-Care/Home Management,Soft Tissue Mobilization,Taping, Therapeutic Activities, Therapeutic Exercises Modalities Cold Pack/Ice Massage,Electric Stimulation,Hot Packs, Infrared Therapy,Iontophoresis ,Traction- Mechanical, Ultrasound Next Visit Focus/Plan Next Note Type Treatment Note Next Visit Plan Continue per PT POC: f/b/ lateral weight shift STS leg press R leg mobility stretch (HS), step taps, marlen stepping
--- NOTE | 2021-05-02 12:51 | PT.OTN ---
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 (05/02/21) Unsteadiness on feet (05/02/21) Weakness (05/02/21) Physical Therapy Treatment Note PT-OP-A Visit Information Start: 02/14/21 14:35 Freq: Status: Active Protocol: Document 05/02/21 12:03 DCW (Rec: 05/02/21 12:51 DCW [id number]) Out-Patient Physical Therapy Visit Information Visit Information Visit Type Treatment Note Visit Start Time 12:03 Visit Stop Time 12:45 Total Visit Minutes 42 Visit Number Number of PIT HAND Visits 0 Evaluation Information Evaluation Date 02/14/21 Precautions Precautions fall risk history of falls PT-OP-B Current Condition Start: 02/14/21 14:35 Freq: Status: Active Protocol: Document 02/14/21 14:36 HH (Rec: 02/14/21 15:16 HH [email or web address]) Current Condition History of Current Condition Onset Date CVA in 2013, multiple falls since. 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 Pt has been seen here at [facility] outpatient therapy services (OT, PT, ST) over the past few years. Pt was recently DC from PT in October, d/t denial of further insurance coverage. reports pt had a recent fall on 02/11 who fell backward while reaching for the fridge door. He hasnt had any falls beside this but his caught him almost fall during walking or getting up from a seated position. She noticed pt has been favoring his RLE by mostly WB through his LLE. Pt tends to drag hig R foot and not WB on it occasionally ,especially in the AM. She also noticed his R LE has been stiff which limits his mobility and increase his fall risks. He is still using a large based quad cane for all mobility and she hopes participating PT will improve his overall endurance, gait quality, strength and balance. Prior Treatments and Tests PT, OT, ST. Has seen improvements with PT Future Testing and Treatments Planned possible OT for RUE Treatment Goals Patient/Caregiver Goals 1. to improve walking endurance 2. to improve pt's overall balance 3. to decrease fall risk Prior Functional Status Baseline Function- ADL's Needs Assist Baseline Function- Mobility Needs Assist Baseline Function- Gait LBQC, R AFO, R hemishoulder sling PT-OP-C Subjective Start: 02/14/21 14:35 Freq: Status: Active Protocol: Document 05/02/21 12:03 DCW (Rec: 05/02/21 12:51 DCW [id number]) OP-PT Subjective Patient Comments Patient Comments Pt's caregiver, when dropping him off today, noted that he seems very wobbly today, requested that we keep an eye on him so there isn't a fall. PT-OP-D Balance Start: 02/14/21 14:35 Freq: Status: Active Protocol: Document 02/16/21 13:48 HH (Rec: 02/16/21 15:20 HH [id number]) Tinetti Balance Assessment Sitting Balance Sitting Balance Steady, safe Arising from Chair Ability to Arise Able, uses arms to help Attempts to Arise Arises on 1st attempt Standing Balance Immediate Standing Balance Steady w/o support Standing Balance Narrow stance w/o support Nudged Response Steady Standing with Eyes Closed Steady Turning Step Pattern Turning 360 Degrees Discontinuous steps Stability Turning 360 Degrees Steady Sitting Down Sitting Down Safe, steady Gait and Step Initiation of Gait No hesitancy Right Foot Step Length Does pass stance foot Right Foot Step Height Completely clears floor Left Foot Step Length Does pass stance foot Left Foot Step Height Completely clears floor Step Description Step Symmetry Step length not equal Step Continuity Stopping or discontinuity Gait Description Path Description Mild/moderate deviation Trunk Description Marked sway or uses aide Walking Stance Heels apart Scoring and Interpretation Tinetti Composite Score (points) 20 Interpretation of Scores At risk for falls (19-24) Tinetti Impairment Rating from Composite 20 to <40% Impaired (Score 17- Score 22) PT-OP-E Functional Tests Start: 02/14/21 14:35 Freq: Status: Active Protocol: Document 02/14/21 14:36 HH (Rec: 02/14/21 15:16 HH [email or web address]) Functional Tests 6 Minute Walk Test Distance 326 ft Device Used LBQC on RUE Comments 2 point pattern until 260 ft kvng, no breaks taken, 1 foot drag but no LOB 30 Second Sit to Stand Test Score 6 times Comments 22 inch chair, pushed off from LBQC on L, WB mostly on RLE PT-OP-G Mobility & Gait Start: 02/14/21 14:35 Freq: Status: Active Protocol: Document 02/14/21 14:36 HH (Rec: 02/14/21 15:16 HH [email or web address]) OP Mobility Evaluation Bed Mobility Rolling IND Supine to and from Sit IND Transfers Sit to Stand heavy use of LUE to push off from LBQC from a 22 chair pt tends to WB mostly on LLE to push off. OP Gait Assessment Gait Gait Assistance Required: Standby Assistance Assistive Devices Assistive Device Large Based Quad Cane Orthotic/Prosthetic Devices or Brace: Yes Gait Deviations General Gait Pattern Decreased Stride Length, Decreased Feet Clearance, Narrow Based Gait,Step-to Gait Factors Limiting Gait Function Factors Limiting Gait Function Decreased Activity Tolerance, Decreased Strength,Poor Safety Awareness Comments Gait Comments pt amb with step to, narrowed NATE gait, along with toe in gait on LLE 2 point pattern most of the time but 3 point pattern when he gets fatigue PT-OP-M Strength Start: 02/14/21 14:35 Freq: Status: Active Protocol: Document 02/14/21 14:36 HH (Rec: 02/14/21 15:16 HH [email or web address]) Hip Strength Hip Manual Muscle Testing Right Flexion (L2) 2+ Poor+ Extension (S1) 2+ Poor+ Abduction 2+ Poor+ Adduction 2+ Poor+ Left Flexion (L2) 4 Good Extension (S1) 4 Good Abduction 4 Good Adduction 4 Good Knee Strength Knee Manual Muscle Testing Left Flexion (S2) 2 Poor Extension (L3) 3 Fair PT-OP-Q Treatments Start: 02/14/21 14:35 Freq: Status: Active Protocol: Document 05/02/21 12:03 DCW (Rec: 05/02/21 12:51 DCW [id number]) Cardio Equipment Recumbent Elliptical (Biodex) Duration (Minutes) 5 Resistance 5 Seat Position 9 Other B LE's & L UE Gym Equipment Shuttle Recovery Unilateral Squats Resistance 37# Shuttle Recovery Platform Stable Reps/Time x15 bilaterally Bilateral Squats Details Bilateral Squats ball between knees Resistance 75# Shuttle Recovery Platform Stable Reps/Time x15 Therapeutic Exercises Standing Exercises side stepping Standing Exercise Name side stepping with L foot, RLE in place Side left Equipment Used rail Reps/Minutes 3x3 reps- reduced reps due to R quad spasming- tiring Comments focus WB on RLE, light UE support lateral weight shift Standing Exercise Name lateral wt shift, then forward wt shift over forward stance LE Resistance CG Equipment Used in front mirror, no support Reps/Minutes 6 mins Comments cues on weightshifted to R to facilitate WB on RLE 4 Standing Exercise Name Toe-taps Side bilateral Equipment Used 6 step Neuro Re-Education Treatment Balance Activities Putting Details Standing putting Comments R hand strapped to putter Focus on weight shift, trunk rotation, standing balance SLS Details SLS Surface firm Comments Unilateral UE support PT-OP-T Assessment and Plan Start: 02/14/21 14:35 Freq: Status: Active Protocol: Document 05/02/21 12:03 DCW (Rec: 05/02/21 12:51 DCW [id number]) Physical Therapy Assessment Goals Tinneti Impairment pt scores 20/28 Wallpaper Installer Goal (LTG) pt will be able to reach >22/ 28 on Tinneti to improve his overall balance and walking ability LTG Duration 10 weeks fall risks Impairment pt has a recent fall a week ago Residential Goal (LTG) pt will not have any falls in a 3 months period. LTG Duration 12 weeks transfers Impairment pt completed 6 STS in 30 seconds from 22 inch chair Short Term Goal (STG) pt will improve his overall LE strength to complete 8 STS in 30 seconds from a 22inch chair with LBQC STG Duration 6 weeks Residential Goal (LTG) pt will improve his overall LE strength and balance to complete 5 STS in 30 seconds from a 22inch chair without LBQC LTG Duration 12 weeks 6MWT Impairment pt amb 326ft with LBQC during 6MWT Short Term Goal (STG) Pt to amb > 350 during 6 MWT safely with SBA in order to improve his overall home and community mobility. STG Duration 6 weeks Residential Goal (LTG) Pt to amb > 400 during 6 MWT safely with SBA in order to improve his overall home and community mobility. LTG Duration 12 weeks Gait Impairment gait deviations Short Term Goal (STG) pt will be able to amb for 50 ft with min in toeing LLE in order to reduce risk of falls STG Duration 6 weeks Residential Goal (LTG) pt will mnimally leaning into QC with gait and min in toeing LLE >100 ft to improve his overall gait efficiency. LTG Duration 12 weeks Assessment Summary Assessment Pt had some instances on increased R LE tremor today, which happens with his at seemingly random times, but overall pt didn't appear to be any more or less off-balance than his usual. Physical Therapy Plan Frequency and Duration Frequency of Treatment 2x/Week Duration of Treatment 12 weeks Plan of Care Start Date 02/14/21 Plan of Care End Date 05/15/21 Therapeutic Interventions Therapeutic Interventions Balance Training,Gait Training ,Home Exercise Program,Joint Mobilizations,Manual Therapy, Neuromuscular Re-education, Orthotic/Prosthetic Management ,Patient/Caregiver Education, Self-Care/Home Management,Soft Tissue Mobilization,Taping, Therapeutic Activities, Therapeutic Exercises Modalities Cold Pack/Ice Massage,Electric Stimulation,Hot Packs, Infrared Therapy,Iontophoresis ,Traction- Mechanical, Ultrasound Next Visit Focus/Plan Next Note Type Treatment Note Next Visit Plan Continue per PT POC: f/b/ lateral weight shift STS leg press R leg mobility stretch (HS), step taps, marlen stepping
--- NOTE | 2021-05-05 12:48 | PT.OTN ---
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 (05/05/21) Unsteadiness on feet (05/05/21) Weakness (05/05/21) Physical Therapy Treatment Note PT-OP-A Visit Information Start: 02/14/21 14:35 Freq: Status: Active Protocol: Document 05/05/21 12:00 DCW (Rec: 05/05/21 12:48 DCW [id number]) Out-Patient Physical Therapy Visit Information Visit Information Visit Type Treatment Note Visit Start Time 12:00 Visit Stop Time 12:45 Total Visit Minutes 45 Visit Number Number of FARMWORKER DIVERSIFIED CROPS Visits 0 Evaluation Information Evaluation Date 02/14/21 Precautions Precautions fall risk history of falls PT-OP-B Current Condition Start: 02/14/21 14:35 Freq: Status: Active Protocol: Document 02/14/21 14:36 HH (Rec: 02/14/21 15:16 HH [email or web address]) Current Condition History of Current Condition Onset Date CVA in 2013, multiple falls since. 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 Pt has been seen here at [facility] outpatient therapy services (OT, PT, ST) over the past few years. Pt was recently DC from PT in October, d/t denial of further insurance coverage. reports pt had a recent fall on 02/11 who fell backward while reaching for the fridge door. He hasnt had any falls beside this but his caught him almost fall during walking or getting up from a seated position. She noticed pt has been favoring his RLE by mostly WB through his LLE. Pt tends to drag hig R foot and not WB on it occasionally ,especially in the AM. She also noticed his R LE has been stiff which limits his mobility and increase his fall risks. He is still using a large based quad cane for all mobility and she hopes participating PT will improve his overall endurance, gait quality, strength and balance. Prior Treatments and Tests PT, OT, ST. Has seen improvements with PT Future Testing and Treatments Planned possible OT for RUE Treatment Goals Patient/Caregiver Goals 1. to improve walking endurance 2. to improve pt's overall balance 3. to decrease fall risk Prior Functional Status Baseline Function- ADL's Needs Assist Baseline Function- Mobility Needs Assist Baseline Function- Gait LBQC, R AFO, R hemishoulder sling PT-OP-C Subjective Start: 02/14/21 14:35 Freq: Status: Active Protocol: Document 05/05/21 12:00 DCW (Rec: 05/05/21 12:48 DCW [id number]) OP-PT Subjective Patient Comments Patient Comments Pt indicates he is doing well today. PT-OP-D Balance Start: 02/14/21 14:35 Freq: Status: Active Protocol: Document 02/16/21 13:48 HH (Rec: 02/16/21 15:20 HH [id number]) Tinetti Balance Assessment Sitting Balance Sitting Balance Steady, safe Arising from Chair Ability to Arise Able, uses arms to help Attempts to Arise Arises on 1st attempt Standing Balance Immediate Standing Balance Steady w/o support Standing Balance Narrow stance w/o support Nudged Response Steady Standing with Eyes Closed Steady Turning Step Pattern Turning 360 Degrees Discontinuous steps Stability Turning 360 Degrees Steady Sitting Down Sitting Down Safe, steady Gait and Step Initiation of Gait No hesitancy Right Foot Step Length Does pass stance foot Right Foot Step Height Completely clears floor Left Foot Step Length Does pass stance foot Left Foot Step Height Completely clears floor Step Description Step Symmetry Step length not equal Step Continuity Stopping or discontinuity Gait Description Path Description Mild/moderate deviation Trunk Description Marked sway or uses aide Walking Stance Heels apart Scoring and Interpretation Tinetti Composite Score (points) 20 Interpretation of Scores At risk for falls (19-24) Tinetti Impairment Rating from Composite 20 to <40% Impaired (Score 17- Score 22) PT-OP-E Functional Tests Start: 02/14/21 14:35 Freq: Status: Active Protocol: Document 02/14/21 14:36 HH (Rec: 02/14/21 15:16 HH [email or web address]) Functional Tests 6 Minute Walk Test Distance 326 ft Device Used LBQC on RUE Comments 2 point pattern until 260 ft kvng, no breaks taken, 1 foot drag but no LOB 30 Second Sit to Stand Test Score 6 times Comments 22 inch chair, pushed off from LBQC on L, WB mostly on RLE PT-OP-G Mobility & Gait Start: 02/14/21 14:35 Freq: Status: Active Protocol: Document 02/14/21 14:36 HH (Rec: 02/14/21 15:16 [email or web address]) OP Mobility Evaluation Bed Mobility Rolling IND Supine to and from Sit IND Transfers Sit to Stand heavy use of LUE to push off from LBQC from a 22 chair pt tends to WB mostly on LLE to push off. OP Gait Assessment Gait Gait Assistance Required: Standby Assistance Assistive Devices Assistive Device Large Based Quad Cane Orthotic/Prosthetic Devices or Brace: Yes Gait Deviations General Gait Pattern Decreased Stride Length, Decreased Feet Clearance, Narrow Based Gait,Step-to Gait Factors Limiting Gait Function Factors Limiting Gait Function Decreased Activity Tolerance, Decreased Strength,Poor Safety Awareness Comments Gait Comments pt amb with step to, narrowed NATE gait, along with toe in gait on LLE 2 point pattern most of the time but 3 point pattern when he gets fatigue PT-OP-M Strength Start: 02/14/21 14:35 Freq: Status: Active Protocol: Document 02/14/21 14:36 (Rec: 02/14/21 15:16 [email or web address]) Hip Strength Hip Manual Muscle Testing Right Flexion (L2) 2+ Poor+ Extension (S1) 2+ Poor+ Abduction 2+ Poor+ Adduction 2+ Poor+ Left Flexion (L2) 4 Good Extension (S1) 4 Good Abduction 4 Good Adduction 4 Good Knee Strength Knee Manual Muscle Testing Left Flexion (S2) 2 Poor Extension (L3) 3 Fair PT-OP-Q Treatments Start: 02/14/21 14:35 Freq: Status: Active Protocol: Document 05/05/21 12:00 DCW (Rec: 05/05/21 12:48 DCW [id number]) Cardio Equipment Recumbent Elliptical (BiodTumri) Duration (Minutes) 5 Resistance 5 Seat Position 9 Other B LE's & L UE Gym Equipment Shuttle Recovery Unilateral Squats Resistance 37# Shuttle Recovery Platform Stable Reps/Time x15 bilaterally Bilateral Squats Details Ball between knees Resistance 75# Shuttle Recovery Platform Stable Reps/Time x15 Therapeutic Exercises Standing Exercises side stepping Standing Exercise Name side stepping with L foot, RLE in place Side left Equipment Used rail Reps/Minutes 3x3 reps- reduced reps due to R quad spasming- tiring Comments focus WB on RLE, light UE support 4 Standing Exercise Name Toe-taps Side bilateral Equipment Used 6 step Neuro Re-Education Treatment Balance Activities Putting Details Standing putting Comments R hand strapped to putter Focus on weight shift, trunk rotation, standing balance SLS Details SLS Surface firm Comments Unilateral UE support PT-OP-T Assessment and Plan Start: 02/14/21 14:35 Freq: Status: Active Protocol: Document 05/05/21 12:00 DCW (Rec: 05/05/21 12:48 DCW [id number]) Physical Therapy Assessment Goals Tinneti Impairment pt scores 20/28 Pulling Unit Operator Goal (LTG) pt will be able to reach >22/ 28 on Tinneti to improve his overall balance and walking ability LTG Duration 10 weeks fall risks Impairment pt has a recent fall a week ago Prison Goal (LTG) pt will not have any falls in a 3 months period. LTG Duration 12 weeks transfers Impairment pt completed 6 STS in 30 seconds from 22 inch chair Short Term Goal (STG) pt will improve his overall LE strength to complete 8 STS in 30 seconds from a 22inch chair with LBQC STG Duration 6 weeks Prison Goal (LTG) pt will improve his overall LE strength and balance to complete 5 STS in 30 seconds from a 22inch chair without LBQC LTG Duration 12 weeks 6MWT Impairment pt amb 326ft with LBQC during 6MWT Short Term Goal (STG) Pt to amb > 350 during 6 MWT safely with SBA in order to improve his overall home and community mobility. STG Duration 6 weeks Pulling Unit Operator Goal (LTG) Pt to amb > 400 during 6 MWT safely with SBA in order to improve his overall home and community mobility. LTG Duration 12 weeks Gait Impairment gait deviations Short Term Goal (STG) pt will be able to amb for 50 ft with min in toeing LLE in order to reduce risk of falls STG Duration 6 weeks Prison Goal (LTG) pt will mnimally leaning into QC with gait and min in toeing LLE >100 ft to improve his overall gait efficiency. LTG Duration 12 weeks Assessment Summary Assessment Pt did well today, improving with weight shift and rotation for putting. Physical Therapy Plan Frequency and Duration Frequency of Treatment 2x/Week Duration of Treatment 12 weeks Plan of Care Start Date 02/14/21 Plan of Care End Date 05/15/21 Therapeutic Interventions Therapeutic Interventions Balance Training,Gait Training ,Home Exercise Program,Joint Mobilizations,Manual Therapy, Neuromuscular Re-education, Orthotic/Prosthetic Management ,Patient/Caregiver Education, Self-Care/Home Management,Soft Tissue Mobilization,Taping, Therapeutic Activities, Therapeutic Exercises Modalities Cold Pack/Ice Massage,Electric Stimulation,Hot Packs, Infrared Therapy,Iontophoresis ,Traction- Mechanical, Ultrasound Next Visit Focus/Plan Next Note Type Treatment Note Next Visit Plan Continue per PT POC: f/b/ lateral weight shift STS leg press R leg mobility stretch (HS), step taps, marlen stepping
--- NOTE | 2021-05-10 12:49 | PT.OTN ---
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 (05/10/21) Unsteadiness on feet (05/10/21) Weakness (05/10/21) Physical Therapy Treatment Note PT-OP-A Visit Information Start: 02/14/21 14:35 Freq: Status: Active Protocol: Document 05/10/21 12:00 DCW (Rec: 05/10/21 12:48 DCW [id number]) Out-Patient Physical Therapy Visit Information Visit Information Visit Type Treatment Note Visit Start Time 12:00 Visit Stop Time 12:45 Total Visit Minutes 45 Visit Number 17/18 Number of MANAGER E LEARNING Visits 0 Evaluation Information Evaluation Date 02/14/21 Precautions Precautions fall risk history of falls PT-OP-B Current Condition Start: 02/14/21 14:35 Freq: Status: Active Protocol: Document 02/14/21 14:36 HH (Rec: 02/14/21 15:16 HH [email or web address]) Current Condition History of Current Condition Onset Date CVA in 2013, multiple falls since. 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 Pt has been seen here at [facility] outpatient therapy services (OT, PT, ST) over the past few years. Pt was recently DC from PT in October, d/t denial of further insurance coverage. reports pt had a recent fall on 02/11 who fell backward while reaching for the fridge door. He hasnt had any falls beside this but his caught him almost fall during walking or getting up from a seated position. She noticed pt has been favoring his RLE by mostly WB through his LLE. Pt tends to drag hig R foot and not WB on it occasionally ,especially in the AM. She also noticed his R LE has been stiff which limits his mobility and increase his fall risks. He is still using a large based quad cane for all mobility and she hopes participating PT will improve his overall endurance, gait quality, strength and balance. Prior Treatments and Tests PT, OT, ST. Has seen improvements with PT Future Testing and Treatments Planned possible OT for RUE Treatment Goals Patient/Caregiver Goals 1. to improve walking endurance 2. to improve pt's overall balance 3. to decrease fall risk Prior Functional Status Baseline Function- ADL's Needs Assist Baseline Function- Mobility Needs Assist Baseline Function- Gait LBQC, R AFO, R hemishoulder sling PT-OP-C Subjective Start: 02/14/21 14:35 Freq: Status: Active Protocol: Document 05/10/21 12:00 DCW (Rec: 05/10/21 12:48 DCW [id number]) OP-PT Subjective Patient Comments Patient Comments Pt indicates he is doing well today. PT-OP-D Balance Start: 02/14/21 14:35 Freq: Status: Active Protocol: Document 02/16/21 13:48 HH (Rec: 02/16/21 15:20 HH [id number]) Tinetti Balance Assessment Sitting Balance Sitting Balance Steady, safe Arising from Chair Ability to Arise Able, uses arms to help Attempts to Arise Arises on 1st attempt Standing Balance Immediate Standing Balance Steady w/o support Standing Balance Narrow stance w/o support Nudged Response Steady Standing with Eyes Closed Steady Turning Step Pattern Turning 360 Degrees Discontinuous steps Stability Turning 360 Degrees Steady Sitting Down Sitting Down Safe, steady Gait and Step Initiation of Gait No hesitancy Right Foot Step Length Does pass stance foot Right Foot Step Height Completely clears floor Left Foot Step Length Does pass stance foot Left Foot Step Height Completely clears floor Step Description Step Symmetry Step length not equal Step Continuity Stopping or discontinuity Gait Description Path Description Mild/moderate deviation Trunk Description Marked sway or uses aide Walking Stance Heels apart Scoring and Interpretation Tinetti Composite Score (points) 20 Interpretation of Scores At risk for falls (19-24) Tinetti Impairment Rating from Composite 20 to <40% Impaired (Score 17- Score 22) PT-OP-E Functional Tests Start: 02/14/21 14:35 Freq: Status: Active Protocol: Document 02/14/21 14:36 HH (Rec: 02/14/21 15:16 HH [email or web address]) Functional Tests 6 Minute Walk Test Distance 326 ft Device Used LBQC on RUE Comments 2 point pattern until 260 ft kvng, no breaks taken, 1 foot drag but no LOB 30 Second Sit to Stand Test Score 6 times Comments 22 inch chair, pushed off from LBQC on L, WB mostly on RLE PT-OP-G Mobility & Gait Start: 02/14/21 14:35 Freq: Status: Active Protocol: Document 02/14/21 14:36 HH (Rec: 02/14/21 15:16 [email or web address]) OP Mobility Evaluation Bed Mobility Rolling IND Supine to and from Sit IND Transfers Sit to Stand heavy use of LUE to push off from LBQC from a 22 chair pt tends to WB mostly on LLE to push off. OP Gait Assessment Gait Gait Assistance Required: Standby Assistance Assistive Devices Assistive Device Large Based Quad Cane Orthotic/Prosthetic Devices or Brace: Yes Gait Deviations General Gait Pattern Decreased Stride Length, Decreased Feet Clearance, Narrow Based Gait,Step-to Gait Factors Limiting Gait Function Factors Limiting Gait Function Decreased Activity Tolerance, Decreased Strength,Poor Safety Awareness Comments Gait Comments pt amb with step to, narrowed NATE gait, along with toe in gait on LLE 2 point pattern most of the time but 3 point pattern when he gets fatigue PT-OP-M Strength Start: 02/14/21 14:35 Freq: Status: Active Protocol: Document 02/14/21 14:36 (Rec: 02/14/21 15:16 [email or web address]) Hip Strength Hip Manual Muscle Testing Right Flexion (L2) 2+ Poor+ Extension (S1) 2+ Poor+ Abduction 2+ Poor+ Adduction 2+ Poor+ Left Flexion (L2) 4 Good Extension (S1) 4 Good Abduction 4 Good Adduction 4 Good Knee Strength Knee Manual Muscle Testing Left Flexion (S2) 2 Poor Extension (L3) 3 Fair PT-OP-Q Treatments Start: 02/14/21 14:35 Freq: Status: Active Protocol: Document 05/10/21 12:00 DCW (Rec: 05/10/21 12:48 DCW [id number]) Cardio Equipment Recumbent Elliptical ([employer]) Duration (Minutes) 5 Resistance 5 Seat Position 9 Other B LE's & L UE Gym Equipment Shuttle Recovery Unilateral Squats Resistance 37# Shuttle Recovery Platform Stable Reps/Time x15 bilaterally Bilateral Squats Details Ball between knees Resistance 75# Shuttle Recovery Platform Stable Reps/Time x15 Shuttle Balance red clips Details Red Comments Wide NATE, narrowed incrementally. Staggered. Required CGA. Neuro Re-Education Treatment Balance Activities Putting Details Standing putting Comments R hand strapped to putter Focus on weight shift, trunk rotation, standing balance SLS Details SLS Surface firm Comments Unilateral UE support uneven surface Details NBOS (EO/EC) Surface Blue foam PT-OP-T Assessment and Plan Start: 02/14/21 14:35 Freq: Status: Active Protocol: Document 05/10/21 12:00 DCW (Rec: 05/10/21 12:48 DCW [id number]) Physical Therapy Assessment Goals Tinneti Impairment pt scores 20/28 Jail Goal (LTG) pt will be able to reach >22/ 28 on Tinneti to improve his overall balance and walking ability LTG Duration 10 weeks fall risks Impairment pt has a recent fall a week ago Jail Goal (LTG) pt will not have any falls in a 3 months period. LTG Duration 12 weeks transfers Impairment pt completed 6 STS in 30 seconds from 22 inch chair Short Term Goal (STG) pt will improve his overall LE strength to complete 8 STS in 30 seconds from a 22inch chair with LBQC STG Duration 6 weeks Jail Goal (LTG) pt will improve his overall LE strength and balance to complete 5 STS in 30 seconds from a 22inch chair without LBQC LTG Duration 12 weeks 6MWT Impairment pt amb 326ft with LBQC during 6MWT Short Term Goal (STG) Pt to amb > 350 during 6 MWT safely with SBA in order to improve his overall home and community mobility. STG Duration 6 weeks National Sales Trainer Goal (LTG) Pt to amb > 400 during 6 MWT safely with SBA in order to improve his overall home and community mobility. LTG Duration 12 weeks Gait Impairment gait deviations Short Term Goal (STG) pt will be able to amb for 50 ft with min in toeing LLE in order to reduce risk of falls STG Duration 6 weeks Jail Goal (LTG) pt will mnimally leaning into QC with gait and min in toeing LLE >100 ft to improve his overall gait efficiency. LTG Duration 12 weeks Assessment Summary Assessment Pt able to tolerate more activity without rest, much less frequent stops for water or due to LE tremor. Physical Therapy Plan Frequency and Duration Frequency of Treatment 2x/Week Duration of Treatment 12 weeks Plan of Care Start Date 02/14/21 Plan of Care End Date 05/15/21 Therapeutic Interventions Therapeutic Interventions Balance Training,Gait Training ,Home Exercise Program,Joint Mobilizations,Manual Therapy, Neuromuscular Re-education, Orthotic/Prosthetic Management ,Patient/Caregiver Education, Self-Care/Home Management,Soft Tissue Mobilization,Taping, Therapeutic Activities, Therapeutic Exercises Modalities Cold Pack/Ice Massage,Electric Stimulation,Hot Packs, Infrared Therapy,Iontophoresis ,Traction- Mechanical, Ultrasound Next Visit Focus/Plan Next Note Type Treatment Note Next Visit Plan Continue per PT POC: f/b/ lateral weight shift STS leg press R leg mobility stretch (HS), step taps, marlen stepping
--- NOTE | 2021-05-12 12:55 | PT.OTN ---
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 (05/12/21) Unsteadiness on feet (05/12/21) Weakness (05/12/21) Physical Therapy Treatment Note PT-OP-A Visit Information Start: 02/14/21 14:35 Freq: Status: Active Protocol: Document 05/12/21 12:00 DCW (Rec: 05/12/21 12:55 DCW [id number]) Out-Patient Physical Therapy Visit Information Visit Information Visit Type Progress Note Visit Start Time 12:00 Visit Stop Time 12:45 Total Visit Minutes 45 Visit Number Number of SHOP FOREMAN Visits 0 Evaluation Information Evaluation Date 02/14/21 Precautions Precautions fall risk history of falls PT-OP-B Current Condition Start: 02/14/21 14:35 Freq: Status: Active Protocol: Document 02/14/21 14:36 HH (Rec: 02/14/21 15:16 HH [email or web address]) Current Condition History of Current Condition Onset Date CVA in 2013, multiple falls since. 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 Pt has been seen here at [facility] outpatient therapy services (OT, PT, ST) over the past few years. Pt was recently DC from PT in October, d/t denial of further insurance coverage. reports pt had a recent fall on 02/11 who fell backward while reaching for the fridge door. He hasnt had any falls beside this but his caught him almost fall during walking or getting up from a seated position. She noticed pt has been favoring his RLE by mostly WB through his LLE. Pt tends to drag hig R foot and not WB on it occasionally ,especially in the AM. She also noticed his R LE has been stiff which limits his mobility and increase his fall risks. He is still using a large based quad cane for all mobility and she hopes participating PT will improve his overall endurance, gait quality, strength and balance. Prior Treatments and Tests PT, OT, ST. Has seen improvements with PT Future Testing and Treatments Planned possible OT for RUE Treatment Goals Patient/Caregiver Goals 1. to improve walking endurance 2. to improve pt's overall balance 3. to decrease fall risk Prior Functional Status Baseline Function- ADL's Needs Assist Baseline Function- Mobility Needs Assist Baseline Function- Gait LBQC, R AFO, R hemishoulder sling PT-OP-C Subjective Start: 02/14/21 14:35 Freq: Status: Active Protocol: Document 05/12/21 12:00 DCW (Rec: 05/12/21 12:55 DCW [id number]) OP-PT Subjective Patient Comments Patient Comments Pt relatively underwhelmed about the idea of reassessment today. PT-OP-D Balance Start: 02/14/21 14:35 Freq: Status: Active Protocol: Document 05/12/21 12:00 DCW (Rec: 05/12/21 12:27 DCW [id number]) Tinetti Balance Assessment Sitting Balance Sitting Balance Steady, safe Arising from Chair Ability to Arise Able, uses arms to help Attempts to Arise Arises on 1st attempt Standing Balance Immediate Standing Balance Steady w/o support Standing Balance Narrow stance w/o support Nudged Response Steady Standing with Eyes Closed Steady Turning Step Pattern Turning 360 Degrees Discontinuous steps Stability Turning 360 Degrees Steady Sitting Down Sitting Down Safe, steady Gait and Step Initiation of Gait No hesitancy Right Foot Step Length Does not pass stance ft. Right Foot Step Height Completely clears floor Left Foot Step Length Does pass stance foot Left Foot Step Height Completely clears floor Step Description Step Symmetry Step length not equal Step Continuity Stopping or discontinuity Gait Description Path Description Mild/moderate deviation Trunk Description Marked sway or uses aide Walking Stance Heels apart Scoring and Interpretation Tinetti Composite Score (points) 19 Interpretation of Scores At risk for falls (19-24) Tinetti Impairment Rating from Composite 20 to <40% Impaired (Score 17- Score 22) PT-OP-E Functional Tests Start: 02/14/21 14:35 Freq: Status: Active Protocol: Document 05/12/21 12:00 DCW (Rec: 05/12/21 12:27 DCW [id number]) Functional Tests 6 Minute Walk Test Distance 283 ft Device Used LBQC 30 Second Sit to Stand Test Score 6 times Comments 18 inch chair, pushed off from seat on L, WB mostly on RLE Tinetti Balance and Gait Assessment Balance Score 14 Gait Score 5 Composite Score 19 Balance Score Impairment Rating 1 to <20% Impaired (Score 13- 15) Gait Score Impairment Rating 40 to <60% Impaired (Score 5-7 ) Composite Score Impairment Rating 20 to <40% Impaired (Score 17- 22) PT-OP-G Mobility & Gait Start: 02/14/21 14:35 Freq: Status: Active Protocol: Document 05/12/21 12:00 DCW (Rec: 05/12/21 12:27 DCW [id number]) OP Gait Assessment Gait Gait Assistance Required: Standby Assistance Assistive Devices Assistive Device Large Based Quad Cane Orthotic/Prosthetic Devices or Brace: Yes Gait Deviations General Gait Pattern Decreased Stride Length, Decreased Feet Clearance, Narrow Based Gait,Step-to Gait Factors Limiting Gait Function Factors Limiting Gait Function Decreased Activity Tolerance, Decreased Strength,Poor Safety Awareness Comments Gait Comments pt amb with step to, narrowed NATE gait, along with toe in gait on LLE 3 point pattern PT-OP-M Strength Start: 02/14/21 14:35 Freq: Status: Active Protocol: Document 05/12/21 12:00 DCW (Rec: 05/12/21 12:27 DCW [id number]) Hip Strength Hip Manual Muscle Testing Right Flexion (L2) 3- Fair- Extension (S1) 3- Fair- Abduction 2+ Poor+ Adduction 2+ Poor+ Left Flexion (L2) 4 Good Extension (S1) 4 Good Abduction 4 Good Adduction 4 Good Knee Strength Knee Manual Muscle Testing Right Flexion (S2) 2 Poor Extension (L3) 3 Fair Left Flexion (S2) 5 Normal Extension (L3) 5 Normal PT-OP-Q Treatments Start: 02/14/21 14:35 Freq: Status: Active Protocol: Document 05/12/21 12:00 DCW (Rec: 05/12/21 12:55 DCW [id number]) Neuro Re-Education Treatment Balance Activities Putting Details Standing putting Comments R hand strapped to putter Focus on weight shift, trunk rotation, standing balance Other Activities Tinetti standing balance exercises Details Testing PT-OP-T Assessment and Plan Start: 02/14/21 14:35 Freq: Status: Active Protocol: Document 05/12/21 12:00 DCW (Rec: 05/12/21 12:55 DCW [id number]) Physical Therapy Assessment Goals Tinneti Impairment pt scores 20/28 Automotive Fuel Injection Servicer Goal (LTG) pt will be able to reach >22/ 28 on Tinneti to improve his overall balance and walking ability LTG Duration 08/12/21 - mild decline fall risks Impairment pt has a recent fall a week ago Longterm Goal (LTG) pt will not have any falls in a 3 months period. LTG Duration 08/12/21 transfers Impairment pt completed 6 STS in 30 seconds from 22 inch chair Short Term Goal (STG) pt will improve his overall LE strength to complete 8 STS in 30 seconds from a 22inch chair with LBQC STG Duration 07/13/21 - no change Longterm Goal (LTG) pt will improve his overall LE strength and balance to complete 5 STS in 30 seconds from a 22inch chair without LBQC LTG Duration 08/04/21 6MWT Impairment pt amb 326ft with LBQC during 6MWT Short Term Goal (STG) Pt to amb > 350 during 6 MWT safely with SBA in order to improve his overall home and community mobility. STG Duration 07/13/21 Automotive Fuel Injection Servicer Goal (LTG) Pt to amb > 400 during 6 MWT safely with SBA in order to improve his overall home and community mobility. LTG Duration 08/04/21 Gait Impairment gait deviations Short Term Goal (STG) pt will be able to amb for 50 ft with min in toeing LLE in order to reduce risk of falls STG Duration 07/13/21 Longterm Goal (LTG) pt will mnimally leaning into QC with gait and min in toeing LLE >100 ft to improve his overall gait efficiency. LTG Duration 08/04/21 Assessment Summary Assessment Pt showing some mild improvement with LE strength, but overall has no change or even decline in some areas with no clear reason. Pt has had a few falls at home recently with no injury. His 6 MWT is 43 feet worse, and Tinetti has declined by one point (neither of which is a statistically significant change). Pt appears to be having difficulty with 2-pt gait vs the slower 3-pt gait, however does not relay any issues with his legs or back. Physical Therapy Plan Frequency and Duration Frequency of Treatment 2x/Week Duration of Treatment 12 weeks Plan of Care Start Date 05/12/21 Plan of Care End Date 08/04/21 Therapeutic Interventions Therapeutic Interventions Balance Training,Gait Training ,Home Exercise Program,Joint Mobilizations,Manual Therapy, Neuromuscular Re-education, Orthotic/Prosthetic Management ,Patient/Caregiver Education, Self-Care/Home Management,Soft Tissue Mobilization,Taping, Therapeutic Activities, Therapeutic Exercises Modalities Cold Pack/Ice Massage,Electric Stimulation,Hot Packs, Infrared Therapy,Iontophoresis ,Traction- Mechanical, Ultrasound Next Visit Focus/Plan Next Note Type Treatment Note Next Visit Plan Continue per PT POC: f/b/ lateral weight shift STS leg press R leg mobility stretch (HS), step taps, marlen stepping
--- NOTE | 2021-05-12 12:56 | PT.OPPOC ---
Physical, Occupational & Speech Therapy At [facility] 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 (05/12/21) Unsteadiness on feet (05/12/21) Weakness (05/12/21) Visit Care Team Role Provider Type Delfino Epstein MD Attending Provider Physician Family Provider Primary Care Provider Referring Provider Specialty: Family Practice Address: [address] [place] [address], [id number] Email: [email or web address] Plan Of Care PT-OP-T Assessment and Plan Start: 02/14/21 14:35 Freq: Status: Active Protocol: Document 05/12/21 12:00 DCW (Rec: 05/12/21 12:55 DCW [id number]) Physical Therapy Assessment Goals Tinneti Impairment pt scores 20/28 Senior Care Goal (LTG) pt will be able to reach >22/ 28 on Tinneti to improve his overall balance and walking ability LTG Duration 08/12/21 - mild decline fall risks Impairment pt has a recent fall a week ago Senior Care Goal (LTG) pt will not have any falls in a 3 months period. LTG Duration 08/12/21 transfers Impairment pt completed 6 STS in 30 seconds from 22 inch chair Short Term Goal (STG) pt will improve his overall LE strength to complete 8 STS in 30 seconds from a 22inch chair with LBQC STG Duration 07/13/21 - no change Architecture Instructor Goal (LTG) pt will improve his overall LE strength and balance to complete 5 STS in 30 seconds from a 22inch chair without LBQC LTG Duration 08/04/21 6MWT Impairment pt amb 326ft with LBQC during 6MWT Short Term Goal (STG) Pt to amb > 350 during 6 MWT safely with SBA in order to improve his overall home and community mobility. STG Duration 07/13/21 Architecture Instructor Goal (LTG) Pt to amb > 400 during 6 MWT safely with SBA in order to improve his overall home and community mobility. LTG Duration 08/04/21 Gait Impairment gait deviations Short Term Goal (STG) pt will be able to amb for 50 ft with min in toeing LLE in order to reduce risk of falls STG Duration 07/13/21 Architecture Instructor Goal (LTG) pt will mnimally leaning into QC with gait and min in toeing LLE >100 ft to improve his overall gait efficiency. LTG Duration 08/04/21 Assessment Summary Assessment Pt showing some mild improvment with LE strength, but overall has no change or even decline in some areas with no clear reason. Pt has had a few falls at home recently with no injury. His 6 MWT is 43 feet worse, and Tinetti has declined by one point (neither of which is a statistically significant change). Pt appears to be having difficulty with 2-pt gait vs the slower 3-pt gait, however does not relay any issues with his legs or back. Physical Therapy Plan Frequency and Duration Frequency of Treatment 2x/Week Duration of Treatment 12 weeks Plan of Care Start Date 05/12/21 Plan of Care End Date 08/04/21 Therapeutic Interventions Therapeutic Interventions Balance Training,Gait Training ,Home Exercise Program,Joint Mobilizations,Manual Therapy, Neuromuscular Re-education, Orthotic/Prosthetic Management ,Patient/Caregiver Education, Self-Care/Home Management,Soft Tissue Mobilization,Taping, Therapeutic Activities, Therapeutic Exercises Modalities Cold Pack/Ice Massage,Electric Stimulation,Hot Packs, Infrared Therapy,Iontophoresis ,Traction- Mechanical, Ultrasound Next Visit Focus/Plan Next Note Type Treatment Note Next Visit Plan Continue per PT POC: f/b/ lateral weight shift STS leg press R leg mobility stretch (HS), step taps, marlen stepping Plan of Care Dates Plan of Care Start Date 05/12/21 Plan of Care End Date 08/04/21 Electronically Signed by: Jefferson Ceron, PT 05/12/21 [id number] Please Sign and Return: I have reviewed this Plan of Care and certify that the skilled therapy services above are required to meet the patient?s needs. Physician Signature Date Printed Name and Credentials Clinical Instructor Signature Printed Name and Credentials
--- NOTE | 2021-06-08 13:51 | PT.OPDS ---
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 (05/12/21) Unsteadiness on feet (05/12/21) Weakness (05/12/21) Visit Care Team Role Provider Type Delfino Epstein MD Attending Provider Physician Family Provider Primary Care Provider Referring Provider Specialty: Family Practice Address: [address] [place] [address], [id number] Email: [email or web address] Visit Number Visit Number Discharge Summary PT-OP-B Current Condition Start: 02/14/21 14:35 Freq: Status: Active Protocol: Document 02/14/21 14:36 HH (Rec: 02/14/21 15:16 HH [id number]) Current Condition History of Current Condition Onset Date CVA in 2013, multiple falls since. 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 Pt has been seen here at [facility] outpatient therapy services (OT, PT, ST) over the past few years. Pt was recently DC from PT in October, d/t denial of further insurance coverage. reports pt had a recent fall on 02/11 who fell backward while reaching for the fridge door. He hasnt had any falls beside this but his caught him almost fall during walking or getting up from a seated position. She noticed pt has been favoring his RLE by mostly WB through his LLE. Pt tends to drag hig R foot and not WB on it occasionally ,especially in the AM. She also noticed his R LE has been stiff which limits his mobility and increase his fall risks. He is still using a large based quad cane for all mobility and she hopes participating PT will improve his overall endurance, gait quality, strength and balance. Prior Treatments and Tests PT, OT, ST. Has seen improvements with PT Future Testing and Treatments Planned possible OT for RUE Treatment Goals Patient/Caregiver Goals 1. to improve walking endurance 2. to improve pt's overall balance 3. to decrease fall risk Prior Functional Status Baseline Function- ADL's Needs Assist Baseline Function- Mobility Needs Assist Baseline Function- Gait LBQC, R AFO, R hemishoulder sling PT-OP-C Subjective Start: 02/14/21 14:35 Freq: Status: Active Protocol: Document 05/12/21 12:00 DCW (Rec: 05/12/21 12:55 DCW [id number]) OP-PT Subjective Patient Comments Patient Comments Pt relatively underwhelmed about the idea of reassessment today. PT-OP-D Balance Start: 02/14/21 14:35 Freq: Status: Active Protocol: Document 05/12/21 12:00 DCW (Rec: 05/12/21 12:27 DCW [id number]) Tinetti Balance Assessment Sitting Balance Sitting Balance Steady, safe Arising from Chair Ability to Arise Able, uses arms to help Attempts to Arise Arises on 1st attempt Standing Balance Immediate Standing Balance Steady w/o support Standing Balance Narrow stance w/o support Nudged Response Steady Standing with Eyes Closed Steady Turning Step Pattern Turning 360 Degrees Discontinuous steps Stability Turning 360 Degrees Steady Sitting Down Sitting Down Safe, steady Gait and Step Initiation of Gait No hesitancy Right Foot Step Length Does not pass stance ft. Right Foot Step Height Completely clears floor Left Foot Step Length Does pass stance foot Left Foot Step Height Completely clears floor Step Description Step Symmetry Step length not equal Step Continuity Stopping or discontinuity Gait Description Path Description Mild/moderate deviation Trunk Description Marked sway or uses aide Walking Stance Heels apart Scoring and Interpretation Tinetti Composite Score (points) 19 Interpretation of Scores At risk for falls (19-24) Tinetti Impairment Rating from Composite 20 to <40% Impaired (Score 17- Score 22) PT-OP-E Functional Tests Start: 02/14/21 14:35 Freq: Status: Active Protocol: Document 05/12/21 12:00 DCW (Rec: 05/12/21 12:27 DCW [id number]) Functional Tests 6 Minute Walk Test Distance 283 ft Device Used LBQC 30 Second Sit to Stand Test Score 6 times Comments 18 inch chair, pushed off from seat on L, WB mostly on RLE Tinetti Balance and Gait Assessment Balance Score 14 Gait Score 5 Composite Score 19 Balance Score Impairment Rating 1 to <20% Impaired (Score 13- 15) Gait Score Impairment Rating 40 to <60% Impaired (Score 5-7 ) Composite Score Impairment Rating 20 to <40% Impaired (Score 17- 22) PT-OP-G Mobility & Gait Start: 02/14/21 14:35 Freq: Status: Active Protocol: Document 05/12/21 12:00 DCW (Rec: 05/12/21 12:27 DCW [id number]) OP Gait Assessment Gait Gait Assistance Required: Standby Assistance Assistive Devices Assistive Device Large Based Quad Cane Orthotic/Prosthetic Devices or Brace: Yes Gait Deviations General Gait Pattern Decreased Stride Length, Decreased Feet Clearance, Narrow Based Gait,Step-to Gait Factors Limiting Gait Function Factors Limiting Gait Function Decreased Activity Tolerance, Decreased Strength,Poor Safety Awareness Comments Gait Comments pt amb with step to, narrowed NATE gait, along with toe in gait on LLE 3 point pattern PT-OP-M Strength Start: 02/14/21 14:35 Freq: Status: Active Protocol: Document 05/12/21 12:00 DCW (Rec: 05/12/21 12:27 TNW [id number]) Hip Strength Hip Manual Muscle Testing Right Flexion (L2) 3- Fair- Extension (S1) 3- Fair- Abduction 2+ Poor+ Adduction 2+ Poor+ Left Flexion (L2) 4 Good Extension (S1) 4 Good Abduction 4 Good Adduction 4 Good Knee Strength Knee Manual Muscle Testing Right Flexion (S2) 2 Poor Extension (L3) 3 Fair Left Flexion (S2) 5 Normal Extension (L3) 5 Normal PT-OP-T Assessment and Plan Start: 02/14/21 14:35 Freq: Status: Active Protocol: Document 06/08/21 13:50 DCW (Rec: 06/08/21 13:51 DCW [id number]) Physical Therapy Assessment Assessment Summary Assessment Unfortunately, insurance denied further visits at this time, pt not showing progress that shows medical necessity of therapy. Pt will be discharged from skilled therapy at this time. Pt will require a new referral in order to return to therapy. Physical Therapy Plan Discharge Physical Therapy Discharge Reasons Plateau in Progress Next Visit Focus/Plan Next Note Type Discharge Summary
== END 2021-06-12 09:29 | disposition home or self-care (01) ==
LOC: PHYS 12:00
PROVIDERS: Family Provider Family Medicine; PCP Family Medicine; Referring Provider Family Medicine; Visit Provider Family Medicine
DX: R26.81 Unsteadiness on feet (principal); I69.359 Hemiplegia and hemiparesis following cerebral infarction affecting unspecified side; R53.1 Weakness
CPT/HCPCS: 97110; 97112; 97116; 97162; 97760

== ENCOUNTER → 2021-12-14 11:06 | Outpatient (CLI) | payer OTHER, MEDICARE, SELFPAY ==
[2019-09-02 12:00] VITALS: BMI 23.4
[2021-12-14 12:58] LABS: Add Manual Diff / Slide Review NO; Basophils Absolute Auto 0 /uL (0-100); Basophils Percent Auto 0.5 % (0-2); Eosinophils Absolute Auto 100 /uL (0-450); Eosinophils Percent Auto 2.2 % (2-4); Hematocrit 37.7 % (41-53); Hemoglobin 12.9 g/dL (13.5-17.5); Lymphocytes Absolute Auto 1000 /uL (1100-4500); Lymphocytes Percent Auto 18.8 % (25-40); Mean Corpuscular HGB Conc 34.3 % (30-36); Mean Corpuscular Hemoglobin 30.7 PG (26-34); Mean Corpuscular Volume 89.5 fL (80-100); Monocytes Absolute Auto 600 /uL (0-900); Monocytes Percent Auto 11.3 % (3-14); Neutrophils Absolute Auto 3500 /uL (1500-7000); Neutrophils Percent Auto 67.2 % (50-75); Platelet Count 171 X10^3/uL (150-400); Red Blood Cell Count 4.21 X10^6/uL (4.5-5.9); Red Cell Distribution Width 15.1 % (11.6-14.8); White Blood Cell Count 5.2 X10^3/uL (4.5-11.0)
[2021-12-14 13:05] LABS: Hemoglobin A1C% w Est Avg Glu 6.3 % (4.0-6.0)
[2021-12-14 13:26] LABS: HEMOLYSIS < 15 (0-50); Iron 63 ug/dL (49-181)
[2021-12-14 13:30] LABS: Alanine Aminotransferase 15 IU/L (<50); Albumin 3.9 g/dL (3.5-5.0); Alkaline Phosphatase 59 U/L (38-126); Aspartate Aminotransferase 33 IU/L (17-59); BUN Creatinine Ratio 13.6 (6-22); Bilirubin Total 0.4 mg/dL (0.2-1.3); Blood Urea Nitrogen 14 mg/dL (9-20); Calcium 9.1 mg/dL (8.4-10.2); Carbon Dioxide 31 mmol/L (22-32); Chloride 100 mmol/L (98-107); Cholesterol 184 mg/dL (140-199); Estimated Glomerular Filt Rate > 60.0 mL/min (>60); Globulin 4.1 g/dL (1.7-4.1); Glucose 97 mg/dL (80-110); HDL Cholesterol 34 mg/dL (40-60); HEMOLYSIS < 15 (0-50); LDL Cholesterol Calculated 140 mg/dL (<100); Potassium 4.6 mmol/L (3.4-5.1); Sodium 135 mmol/L (137-145); Triglycerides 51 mg/dL (35-150)
[2021-12-14 13:36] LABS: Percent Iron Saturation 21 % (20-50); Total Iron Binding Capacity 300 ug/dL (261-462); Transferrin 214 mg/dL (206-381)
[2021-12-14 13:59] LABS: Thyroid Stimulating Hormone 0.824 uIU/mL (0.47-4.68)
[2021-12-14 14:03] LABS: Ferritin 31 ng/mL (18-464)
== END ==
PROVIDERS: PCP Family Medicine; Referring Provider Physician Assistant; Visit Provider Physician Assistant
DX: E78.5 Hyperlipidemia, unspecified (principal); E87.1 Hypo-osmolality and hyponatremia; I10 Essential (primary) hypertension; I50.22 Chronic systolic (congestive) heart failure; R53.1 Weakness; R53.83 Other fatigue
CPT/HCPCS: 36415; 80053; 80061; 82728; 83036; 83540; 83550; 84443; 85025

== ENCOUNTER 2022-02-14 13:41 | Emergency (ER) | payer OTHER, MEDICARE, SELFPAY ==
[2019-09-02 12:00] VITALS: BMI 23.4
[2022-02-14] VITALS (7 sets, daily range): BP systolic 118–139; BP diastolic 72–80; PULSE 80–87; RESP 20; TEMP 36.7; O2SAT 97–99
--- NOTE | 2022-02-14 13:54 | DI.CT.S_ITS ---
PROCEDURE: CT HEAD/BRAIN WO CON INDICATIONS: prior stroke new weak on left TECHNIQUE: Noncontrast 4.5 mm thick angled axial sections acquired from the foramen magnum to the vertex, with coronal and sagittal reformats. For radiation dose reduction, the following was used: automated exposure control, adjustment of mA and/or kV according to patient size. COMPARISON: [facility], CT, CT HEAD/BRAIN WO CON, 09/02/2019, 1:15. FINDINGS: Image quality: Excellent. CSF spaces: Basal cisterns are patent. No extra-axial fluid collections. The ventricles are symmetric in size and shape. Brain: No intracranial bleeds or masses. There is cerebral volume loss for age, with resultant ventricular and sulcal prominence. There are periventricular and deep white matter chronic small vessel ischemic changes. Old left frontal temporal infarction. There is intracranial internal carotid artery atherosclerosis. Skull and face: Calvarium and visualized facial bones appear intact, without suspicious lesions. Sinuses: Visualized sinuses and mastoids are clear. IMPRESSION: 1. Old left frontal temporal infarction. Areas of superimposed subacute ischemia cannot be definitively excluded and if this area is of concern, MRI is recommended. 2. Moderate atrophy and chronic microvascular ischemic changes. Dictated by: Domonique Ruiz M.D. on 02/14/2022 at 15:40 Approved by: Domonique Ruiz M.D. on 02/14/2022 at 16:01
--- NOTE | 2022-02-14 13:54 | DI.CT.S_ITS ---
PROCEDURE: CT ANGIO HEAD AND NECK INDICATIONS: new left weakness TECHNIQUE: After the administration of intravenous contrast, 1 mm thick sections acquired from the aortic arch through the [place] of [place]. Post-contrast 4.5 mm thick sections then re-acquired from the foramen magnum to the vertex. 3-dimensional bkmwxrr-ixmlyzycx-dvrruekgry (MIP) and/or volume rendering reformats were acquired of the central intracranial vasculature and neck separately. For radiation dose reduction, the following was used: automated exposure control, adjustment of mA and/or kV according to patient size. COMPARISON: [facility], CT, HEAD AND NECK ANGIO, 11/03/2013, 22:30. FINDINGS: Image quality: Excellent. BRAIN: CSF spaces: Ventricles are normal in size and shape. Basal cisterns are patent. No extra-axial fluid collections. Brain: No midline shift. No intracranial bleeds or masses. Kyle-white matter interface appears intact. Old left frontal temporal infarction. Chronic microvascular ischemic changes are present. Skull and face: Calvarium and facial bones appear intact, without suspicious lesions. Orbits appear normal. Sinuses: Sinuses and mastoids are clear. HEAD CT ANGIOGRAPHY: Anterior circulation: There is occlusion of the left internal carotid artery, unchanged. The flow within the paired anterior cerebral arteries is normal and symmetric. The left middle cerebral artery is atretic consistent with prior infarction. The anterior communicating artery is seen. No aneurysms are seen. Posterior circulation: Visualized portions of the vertebral arteries demonstrate normal caliber, and join to form a normal appearing basilar artery. Flow within the posterior cerebral arteries is normal and symmetric. No aneurysms are seen. There is a left posterior vertebral artery dominance. NECK CT ANGIOGRAPHY: The origins of the left and right common, right internal and bilateral external carotid arteries demonstrate no areas of hemodynamically significant stenosis, vascular occlusion or aneurysmal dilation. There is occlusion of the left internal carotid artery from the origin, unchanged compared to 2013. Origins of the left and right vertebral arteries demonstrate no areas of hemodynamically significant stenosis, vascular occlusion or aneurysmal dilation. Aortic arch demonstrates conventional anatomy. Limited, visualized portions of the subclavian vasculature are unremarkable. . IMPRESSION: Old left frontal temporal infarction. If there are areas of concern of subacute ischemia within these regions, MRI is recommended. Complete occlusion of the left internal carotid artery, unchanged compared to prior exam. No new areas of major vessel occlusion. Any quantitative measurements of stenosis were performed using NASCET criteria. Dictated by: Domonique Ruiz M.D. on 02/14/2022 at 16:02 Approved by: Domonique Ruiz M.D. on 02/14/2022 at 16:06
[2022-02-14 14:20] LABS: Add Manual Diff / Slide Review NO; Basophils Absolute Auto 0 /uL (0-100); Basophils Percent Auto 0.6 % (0-2); Eosinophils Absolute Auto 100 /uL (0-450); Eosinophils Percent Auto 1.9 % (2-4); Hematocrit 38.7 % (41-53); Hemoglobin 13.5 g/dL (13.5-17.5); Lymphocytes Absolute Auto 1300 /uL (1100-4500); Lymphocytes Percent Auto 18.3 % (25-40); Mean Corpuscular HGB Conc 34.8 % (30-36); Mean Corpuscular Hemoglobin 31.1 PG (26-34); Mean Corpuscular Volume 89.4 fL (80-100); Monocytes Absolute Auto 900 /uL (0-900); Monocytes Percent Auto 12.9 % (3-14); Neutrophils Absolute Auto 4600 /uL (1500-7000); Neutrophils Percent Auto 66.3 % (50-75); Platelet Count 202 X10^3/uL (150-400); Red Blood Cell Count 4.33 X10^6/uL (4.5-5.9); Red Cell Distribution Width 15.1 % (11.6-14.8); White Blood Cell Count 6.9 X10^3/uL (4.5-11.0)
[2022-02-14 14:31] LABS: Alanine Aminotransferase 16 IU/L (<50); Albumin 4.1 g/dL (3.5-5.0); Albumin Globulin Ratio 0.8 (1.0-2.8); Alkaline Phosphatase 70 U/L (38-126); Aspartate Aminotransferase 31 IU/L (17-59); BUN Creatinine Ratio 17.2 (6-22); Bilirubin Total 0.4 mg/dL (0.2-1.3); Blood Urea Nitrogen 16 mg/dL (9-20); Calcium 9.3 mg/dL (8.4-10.2); Carbon Dioxide 29 mmol/L (22-32); Chloride 102 mmol/L (98-107); Creatine Kinase 38 U/L (55-170); Estimated Glomerular Filt Rate > 60 mL/min (>60); Globulin 4.9 g/dL (1.7-4.1); Glucose 125 mg/dL (80-110); HEMOLYSIS < 15 (0-50); Lipase 73 U/L (23-300); Potassium 4.2 mmol/L (3.4-5.1); Sodium 138 mmol/L (137-145)
[2022-02-14 14:41] LABS: Troponin I < 0.012 ng/mL (0.01-0.034)
--- NOTE | 2022-02-14 15:28 | ED.NEUROSD ---
HPI - Neuro Symptoms/Deficit General Chief Complaint: Neuro Symptoms/Deficit Stated Complaint: PAIN AND WEAKNESS LEFT SIDE Time Seen by Provider: 02/14/22 13:54 Source: patient Mode of arrival: Ambulatory History of Present Illness HPI Narrative: Patient is a 66-year-old male who has a history of CVA with right-sided deficits, pacemaker, coronary artery disease, diabetes, DVT all presenting today with sudden onset of left-sided arm pain and weakness. Has not been falling. is gone at the time and daughter was with him he was having pain. She says he is unable to verbalize very much after his stroke but does wince in pain. His arm seem to be weak he was unable to put his dentures in. There has not been any falls. He has had multiple and eyes as well. He does not seem to have any chest pain. Strength and pain have improved with time in the emergency department. On Anticoagulants: Yes Related Data Home Medications Medication Instructions Recorded Confirmed multivitamin with minerals 1 tab PO DAILY #0 06/22/19 12/12/21 Previous Rx's Medication Instructions Recorded Disabled Parking Permit #1 each 05/25/19 tamsulosin 0.4 mg capsule 0.4 mg PO QPM #90 cap 07/20/19 insulin aspart U-100 100 unit/mL See Rx Instructions SUBCUT ACHS 12/02/20 subcutaneous solution (Novolog #10 ml U-100 Insulin aspart) folic acid 1 mg tablet 1 mg PO DAILY #90 tab 01/30/21 metformin 1,000 mg tablet 1,000 mg PO BIDCC #60 tab 02/21/21 (Glucophage) ketoconazole 2 % topical cream 1 applic TOPICAL BID #60 g 03/09/21 triamcinolone acetonide 0.1 % 1 applic TOPICAL BID #80 g 03/09/21 topical cream etanercept 50 mg/mL (1 mL) 50 mg SUBCUT QWEEK #3.92 ml 03/22/21 subcutaneous pen injector nystatin 100,000 unit/gram topical 1 applic TOPICAL BID #60 g 04/04/21 powder atorvastatin 20 mg tablet (Lipitor) 20 mg PO BEDTIME #90 tab 05/22/21 pen needle, diabetic 32 gauge x #100 each 07/12/2101/17 (Comfort EZ Pen Rowe) lisinopril 10 mg tablet 10 mg PO DAILY #30 tab 07/14/21 carvedilol 6.25 mg tablet See Rx Instructions .ROUTE 07/31/21 .COMPLEX #180 tablet sertraline 50 mg tablet See Rx Instructions .ROUTE 11/13/21 .COMPLEX #60 tab dabigatran etexilate 150 mg See Rx Instructions .ROUTE 12/18/21 capsule (Pradaxa) .COMPLEX #60 cap insulin glargine 100 unit/mL (3 See Rx Instructions .ROUTE 01/08/22 mL) subcutaneous pen (Basaglar .COMPLEX #15 ml KwikPen U-100 Insulin) insulin syringe-needle U-100 0.3 #100 each 01/08/22 mL 31 gauge x 5/16 (BD Insulin Syringe Ultra-Fine) methotrexate sodium 2.5 mg tablet 7.5 mg PO QWEEK #12 tab 01/18/22 Allergies Allergy/AdvReac Type Severity Reaction Status Date / Time polyethylene glycol 3350 Allergy Intermediate HIVES Verified 12/12/21 14:57 [From Miralax] amoxicillin Allergy Mild RASH Verified 12/12/21 14:57 erythromycin base Allergy Mild RASH Verified 12/12/21 14:57 famotidine Allergy Mild RASH Verified 12/12/21 14:57 niacin Allergy Mild RASH Verified 12/12/21 14:57 codeine AdvReac Mild NAUSEA Verified 12/12/21 14:57 Review of Systems Review of Systems ROS Unobtainable: Unobtainable due to medical condition Hematologic/Lymphatic On Anticoagulants: Yes Patient History Medical History (Updated 02/14/22 @ 18:27 by Felicity Calvo DO) Acute hyponatremia Antiphospholipid antibody syndrome Aphasia following cerebrovascular disease (01/27/15) CAD (coronary artery disease) Cardiac arrhythmia Cerebrovascular accident (CVA) involving left middle cerebral artery territory (09/01/15) Chronic atrial flutter (09/01/15) Chronic systolic congestive heart failure (09/01/15) Controlled insulin dependent diabetes mellitus Coronary artery disease involving [place] coronary artery of [place] heart without angina pectoris (09/01/15) CVA (cerebral vascular accident) Diabetes mellitus DVT (deep venous thrombosis) Essential hypertension (09/01/15) Facial laceration Hemiparesis affecting dominant side as late effect of cerebrovascular accident (01/27/15) History of stroke with residual deficit Hyperglycemia Hyperlipidemia (09/01/15) Hyperlipidemia Myocardial infarction Pacemaker Rheumatoid arthritis Stenosis of left carotid artery (12/22/13) Systolic heart failure Type 2 diabetes mellitus Weakness Surgical History (Updated 06/22/19 @ 19:08 by Vidya Yao RN) AICD (automatic cardioverter/defibrillator) present History of angioplasty Presence of cardiac pacemaker Social History marital status: household members: spouse and caregiver Smoking Status: Never smoker alcohol intake: never substance use type: does not use Smoking Status: Never smoker alcohol intake frequency: 0-2 drinks per day Substance Use Type: does not use Exam Initial Vital Signs Initial Vital Signs: Vital Signs Temperature 98.1 F 02/14/22 13:47 Pulse Rate 85 02/14/22 13:47 Respiratory Rate 20 02/14/22 13:47 Blood Pressure 139/80 02/14/22 13:47 Pulse Oximetry 97 02/14/22 13:47 GENERAL: Alert 66-year-old male in wheelchair in no acute distress. HEENT: Head atraumatic,EOMI, pupils reactive, face symmetric, moist mucous membranes CARDIOVASCULAR: Regular rate and rhythm without murmurs, rubs or gallops. RESPIRATORY: Breath sounds equal bilaterally, no wheezes rales or rhonchi. ABDOMEN: Soft, nontender. Normoactive bowel sounds all 4 quadrants. No guarding or rebound. EXTREMITIES: Normal range of motion, no clubbing or edema. Neurovascularly intact NEUROLOGICAL: At baseline right-sided deficits. Able to squeeze left hand and lift it. able to lift left leg as well. Apparently back to baseline per . He does stand and transfer SKIN: Warm, dry, no laceration, no petechiae, no rashes or lesions. Course Orders Ordered: ED Orders 02/14/22 13:54 CT angio head and neck Stat CT head/brain wo con Stat 02/14/22 14:02 Complete Blood Count AUTO DIFF Stat Comprehensive Metabolic Panel Stat Lipase Stat Troponin & CK Cardiac Panel Stat 02/14/22 15:22 EKG-12 Lead Stat 02/14/22 16:30 Troponin I Stat Vital Signs Vital signs: Vital Signs - 8 hr 02/14/22 13:47 02/14/22 15:23 02/14/22 15:30 Temperature 98.1 F Pulse Rate 85 80 80 Respiratory Rate 20 20 Blood Pressure 139/80 128/75 123/72 Pulse Oximetry 97 99 98 02/14/22 16:00 02/14/22 16:30 02/14/22 17:00 Temperature Pulse Rate 81 85 87 Respiratory Rate Blood Pressure 120/72 118/76 128/74 Pulse Oximetry 98 98 98 MDM - Neuro Symptoms/Deficit Lab Data Result diagrams: 02/14/22 14:02 02/14/22 14:02 Labs: Lab Results 02/14/22 02/14/22 02/14/22 Range/Units 14:02 14:02 16:30 WBC 6.9 (4.5-11.0) X10^3/uL RBC 4.33 L (4.5-5.9) X10^6/uL Hgb 13.5 (13.5-17.5) g/dL Hct 38.7 L (41-53) % MCV 89.4 (80-100) fL MCH 31.1 (26-34) PG MCHC 34.8 (30-36) % RDW 15.1 H (11.6-14.8) % Plt Count 202 (150-400) X10^3/uL Neut % (Auto) 66.3 (50-75) % Lymph % (Auto) 18.3 L (25-40) % Frederick % (Auto) 12.9 (3-14) % Eos % (Auto) 1.9 L (2-4) % Baso % (Auto) 0.6 (0-2) % Neut # (Auto) 4600 (5841-6478) /uL Lymph # (Auto) 1300 (4910-4108) /uL Frederick # (Auto) 900 (0-900) /uL Eos # (Auto) 100 (0-450) /uL Baso # (Auto) 0 (0-100) /uL Sodium 138 (137-145) mmol/L Potassium 4.2 (3.4-5.1) mmol/L Chloride 102 (98-107) mmol/L Carbon Dioxide 29 (22-32) mmol/L BUN 16 (9-20) mg/dL Creatinine 0.93 (0.66-1.25) mg/dL Estimated GFR > 60 (>60) mL/min BUN/Creatinine Ratio 17.2 (6-22) Glucose 125 H (80-110) mg/dL Calcium 9.3 (8.4-10.2) mg/dL Total Bilirubin 0.4 (0.2-1.3) mg/dL AST 31 (17-59) IU/L ALT 16 (<50) IU/L Alkaline Phosphatase 70 (38-126) U/L Total Creatine Kinase 38 L (55-170) U/L CK-MB (CK-2) TNP CK-MB (CK-2) Rel Index TNP Troponin I < 0.012 < 0.012 (0.01-0.034) ng/mL Total Protein 9.0 H (6.3-8.2) g/dL Albumin 4.1 (3.5-5.0) g/dL Globulin 4.9 H (1.7-4.1) g/dL Albumin/Globulin Ratio 0.8 L (1.0-2.8) Lipase 73 (23-300) U/L Imaging Data CT scan - head: Radiologist's Impression: JOSELINE Pagan [id number] CT Scan Report Signed Patient: Sukh Colvin MR#: [id number] : 1955 Acct:[id number] Age/Sex: 66 / M Date of Service: 02/14/22 Loc: ED Accession Number: [id number] ?? Procedure: CT head/brain wo con Ordering Provider: Felicity Calvo D.O. PROCEDURE:? CT HEAD/BRAIN WO CON ? INDICATIONS:? prior stroke new weak on left ? TECHNIQUE:? Noncontrast 4.5 mm thick angled axial sections acquired from the foramen magnum to the vertex, with coronal and sagittal reformats.? For radiation dose reduction, the following was used:? automated exposure control, adjustment of mA and/or kV according to patient size.? ? COMPARISON:? [facility], CT, CT HEAD/BRAIN WO CON, 09/02/2019, 1:15. ? FINDINGS:? Image quality:? Excellent.? ? CSF spaces:? Basal cisterns are patent.? No extra-axial fluid collections.? The ventricles are symmetric in size and shape.? ? Brain:? No intracranial bleeds or masses.? There is cerebral volume loss for age, with resultant ventricular and sulcal prominence.? There are periventricular and deep white matter chronic small vessel ischemic changes.? Old left frontal temporal infarction.? There is intracranial internal carotid artery atherosclerosis.? ? Skull and face:? Calvarium and visualized facial bones appear intact, without suspicious lesions.? ? Sinuses:? Visualized sinuses and mastoids are clear.? ? IMPRESSION:? ? 1. Old left frontal temporal infarction.? Areas of superimposed subacute ischemia cannot be definitively excluded and if this area is of concern, MRI is recommended. ? 2. Moderate atrophy and chronic microvascular ischemic changes.? ? ? Dictated by: Domonique Ruiz M.D. on 02/14/2022 at 15:40 ?? CTA - brain/neck: Radiologist's Impression: Signed Patient: Sukh Colvin MR#: [id number] : 1955 Acct:[id number] Age/Sex: 66 / M Date of Service: 02/14/22 Loc: ED Accession Number: [id number] ?? Procedure: CT angio head and neck Ordering Provider: Felicity Calvo D.O. PROCEDURE:? CT ANGIO HEAD AND NECK ? INDICATIONS:? new left weakness ? TECHNIQUE:? After the administration of intravenous contrast, 1 mm thick sections acquired from the aortic arch through the [place].? Post-contrast 4.5 mm thick sections then re-acquired from the foramen magnum to the vertex.? 3-dimensional nxsekxw-rogjvhdfv-fwkdonyane (MIP) and/or volume rendering reformats were acquired of the central intracranial vasculature and neck separately. For radiation dose reduction, the following was used:? automated exposure control, adjustment of mA and/or kV according to patient size.? ? COMPARISON:? [facility], CT, HEAD AND NECK ANGIO, 11/03/2013, 22:30. ? FINDINGS:? Image quality:? Excellent.? ? BRAIN:? CSF spaces:? Ventricles are normal in size and shape.? Basal cisterns are patent.? No extra-axial fluid collections.? ? Brain:? No midline shift.? No intracranial bleeds or masses.? Kyle-white matter interface appears intact.? Old left frontal temporal infarction.? Chronic microvascular ischemic changes are present. ? Skull and face:? Calvarium and facial bones appear intact, without suspicious lesions.? Orbits appear normal.? ? Sinuses:? Sinuses and mastoids are clear.? ? HEAD CT ANGIOGRAPHY:? Anterior circulation:? There is occlusion of the left internal carotid artery, unchanged. ?The flow within the paired anterior cerebral arteries is normal and symmetric.? The left middle cerebral artery is atretic consistent with prior infarction.? The anterior communicating artery is seen.? No aneurysms are seen.? ? Posterior circulation:? Visualized portions of the vertebral arteries demonstrate normal caliber, and join to form a normal appearing basilar artery.? Flow within the posterior cerebral arteries is normal and symmetric.? No aneurysms are seen.? There is a left posterior vertebral artery dominance. ? NECK CT ANGIOGRAPHY:? The origins of the left and right common, right internal and bilateral external carotid arteries demonstrate no areas of hemodynamically significant stenosis, vascular occlusion or aneurysmal dilation.? There is occlusion of the left internal carotid artery from the origin, unchanged compared to 2013. Origins of the left and right vertebral arteries demonstrate no areas of hemodynamically significant stenosis, vascular occlusion or aneurysmal dilation. Aortic arch demonstrates conventional anatomy. Limited, visualized portions of the subclavian vasculature are unremarkable. .? IMPRESSION:? ? Old left frontal temporal infarction.? If there are areas of concern of subacute ischemia within these regions, MRI is recommended. ? Complete occlusion of the left internal carotid artery, unchanged compared to prior exam. ?No new areas of major vessel occlusion. ? Any quantitative measurements of stenosis were performed using NASCET criteria.? ? ? Dictated by: Domonique Ruiz M.D. on 02/14/2022 at 16:02 ? ? Approved by: Domonique Ruiz M.D. on 02/14/2022 at 16:06 ? ECG Data Interpretation: Sinus rhythm rate 79 MT interval 190 QRS 134 QTC 451 similar or improved from previous EKG T-wave inversions noted in lateral leads 1 aVL V4 V5 and V6, presents from 2019 EKG 2. Rate 82 similar to previous no ST changes persistent T-wave inversion MDM Narrative Medical decision making narrative: Patient had pain in his left arm which improved. Without fall, no need for arm xray. EKG and troponins are negative at baseline. Pain was definitely worse with movement which is not consistent with stroke or heart attack, more consistent with a musculoskeletal issue. states that he does have a history of rheumatoid arthritis on it does flare. She thinks that maybe that is what was happening. His he is definitely back to normal now. Workup in the emergency department is negative. He does not need anything for pain here. Currently wanting the EKG stickers off of his chest. At this time they feel comfortable going home there is no need for admission. Discharge Plan Departure Patient Disposition: Home Clinical Impression: Arm pain, left Instructions: DI for Arm Pain Activity Restrictions/Additional Instructions: *You have been diagnosed with left arm pain *What to do: At this time symptoms are not quite consistent heart attack or stroke. CT scan today is stable EKG is also stable. *Continue to take medications as directed *Follow up with your primary care provider in 2-3 days or call [phone] *Return to ER if you should have increasing pain weakness, confusion or any new, worsening or concerning symptoms Prescriptions: No Action nystatin 100,000 unit/gram powder 1 applic topical BID Qty: 60 1RF (DME) Disabled Parking Permit 0 .ROUTE .MEDSUPPLY Qty: 1 0RF Rx Instructions: I find this person to be disabled tamsulosin 0.4 mg capsule 0.4 mg PO QPM Qty: 90 3RF insulin aspart U-100 [Novolog U-100 Insulin aspart] 100 unit/mL solution See Rx Instructions SUBCUT ACHS Qty: 10 11RF Dose Instruction: Sliding scale up to three times daily as needed for blood sugar elevations SUBCUT ACHS; Label Comments: states prn. RX INSTRUCTIONS MIGHT NOT BE CURRENT. 09/02/19 Rx Instructions: Sliding scale up to three times daily. 150-200 1 U;200-250 2 U;250-300 3 U;300-350 4 U;350-400 5 U. folic acid 1 mg tablet 1 mg PO DAILY Qty: 90 3RF metformin [Glucophage] 1,000 mg tablet 1,000 mg PO BIDCC Qty: 60 11RF ketoconazole 2 % cream 1 applic topical BID Qty: 60 0RF triamcinolone acetonide 0.1 % cream 1 applic topical BID Qty: 80 0RF etanercept 50 mg/mL (1 mL) pen injector 50 mg SUBCUT QWEEK Qty: 3.92 11RF Rx Instructions: mondays Auth approved. See scans 12/31/19 atorvastatin [Lipitor] 20 mg tablet 20 mg PO BEDTIME Qty: 90 3RF (DME) pen needle, diabetic [Comfort EZ Pen Rowe] 32 gauge x 3/16 needle See Dose Instructions .ROUTE .MEDSUPPLY Qty: 100 3RF Dose Instruction: As directed Rx Instructions: As directed for use with glargine pen lisinopril 10 mg tablet 10 mg PO DAILY Qty: 30 11RF carvedilol 6.25 mg tablet See Rx Instructions .ROUTE .COMPLEX Qty: 180 1RF Dose Instruction: Take one tablet by mouth twice daily Rx Instructions: Take one tablet by mouth twice daily sertraline 50 mg tablet See Rx Instructions .ROUTE .COMPLEX Qty: 60 5RF Dose Instruction: TAKE TWO TABLETS BY MOUTH DAILY Rx Instructions: TAKE TWO TABLETS BY MOUTH DAILY Pradaxa 150 mg capsule See Rx Instructions .ROUTE .COMPLEX Qty: 60 5RF Dose Instruction: TAKE ONE CAPSULE BY MOUTH TWICE DAILY Rx Instructions: TAKE ONE CAPSULE BY MOUTH TWICE DAILY Basaglar KwikPen U-100 Insulin 100 unit/mL (3 mL) insulin pen See Rx Instructions .ROUTE .COMPLEX Qty: 15 3RF Dose Instruction: Inject 18 units subcutaneously as needed daily in the morning for blood sugar control. Rx Instructions: Inject 18 units subcutaneously as needed daily in the morning for blood sugar control. (DME) insulin syringe-needle U-100 [BD Insulin Syringe Ultra-Fine] 0.3 mL 31 gauge x 5/16 syringe See Rx Instructions .ROUTE .MEDSUPPLY Qty: 100 11RF Rx Instructions: As directed up to 5 times daily for insulin injections methotrexate sodium 2.5 mg tablet 7.5 mg PO QWEEK Qty: 12 11RF Rx Instructions: tuesdays multivitamin with minerals Tablet 1 tab PO DAILY Qty: 0 0RF Referrals: Delfino Epstein MD [Primary Care Provider] -
--- NOTE | 2022-02-14 15:30 | PC.NURSE ---
pt had a stroke in 2012. reports he is non-verbal. will speak one word at a time. reports that she noticed that he was having trouble with his left arm while attempting to eat. pt usually with walk with his cane per . right side is flaccid.
[2022-02-14 17:35] LABS: Troponin I < 0.012 ng/mL (0.01-0.034)
== END 2022-02-14 18:42 | disposition home or self-care (01) ==
PROVIDERS: Emergency Provider Emergency Medicine; PCP Family Medicine
DX: M79.602 Pain in left arm (principal); R53.1 Weakness; I69.90 Unspecified sequelae of unspecified cerebrovascular disease
CPT/HCPCS: 36415; 70450; 70496; 70498; 80053; 82550; 83690; 84484; 85025; 93005; 93010; 99284; Q9967

== ENCOUNTER → 2022-07-30 16:15 | Outpatient (CLI) | payer OTHER, MEDICARE, SELFPAY ==
[2019-09-02 12:00] VITALS: BMI 23.4
[2022-07-30 18:32] LABS: Add Manual Diff / Slide Review NO; Basophils Absolute Auto 0 /uL (0-100); Basophils Percent Auto 0.6 % (0-2); Eosinophils Absolute Auto 200 /uL (0-450); Eosinophils Percent Auto 2.6 % (2-4); Hematocrit 38.5 % (41-53); Hemoglobin 13.4 g/dL (13.5-17.5); Lymphocytes Absolute Auto 1500 /uL (1100-4500); Lymphocytes Percent Auto 23.9 % (25-40); Mean Corpuscular HGB Conc 34.8 % (30-36); Mean Corpuscular Hemoglobin 31.2 PG (26-34); Mean Corpuscular Volume 89.6 fL (80-100); Monocytes Absolute Auto 800 /uL (0-900); Monocytes Percent Auto 11.9 % (3-14); Neutrophils Absolute Auto 3900 /uL (1500-7000); Platelet Count 186 X10^3/uL (150-400); Red Blood Cell Count 4.29 X10^6/uL (4.5-5.9); Red Cell Distribution Width 14.8 % (11.6-14.8); White Blood Cell Count 6.3 X10^3/uL (4.5-11.0)
[2022-07-30 18:53] LABS: Alanine Aminotransferase 18 IU/L (<50); Albumin 3.9 g/dL (3.5-5.0); Albumin Globulin Ratio 0.8 (1.0-2.8); Alkaline Phosphatase 54 U/L (38-126); Aspartate Aminotransferase 29 IU/L (17-59); Bilirubin Total 0.3 mg/dL (0.2-1.3); Blood Urea Nitrogen 20 mg/dL (9-20); Calcium 9.4 mg/dL (8.4-10.2); Carbon Dioxide 28 mmol/L (22-32); Chloride 95 mmol/L (98-107); Estimated Glomerular Filt Rate > 60 mL/min (>60); Globulin 4.7 g/dL (1.7-4.1); Glucose 82 mg/dL (80-110); HEMOLYSIS < 15 (0-50); Potassium 4.4 mmol/L (3.4-5.1); Sodium 132 mmol/L (137-145); Total Protein 8.6 g/dL (6.3-8.2)
[2022-07-30 19:19] LABS: Hemoglobin A1C% w Est Avg Glu 6.9 % (4.0-6.0)
== END ==
PROVIDERS: PCP Family Medicine; Referring Provider Family Medicine; Visit Provider Family Medicine
DX: E11.59 Type 2 diabetes mellitus with other circulatory complications (principal); E78.5 Hyperlipidemia, unspecified; Z79.4 Long term (current) use of insulin; Z86.73 Personal history of transient ischemic attack (TIA), and cerebral infarction without residual deficits
CPT/HCPCS: 36415; 80053; 83036; 85025

== ENCOUNTER 2022-11-01 14:30 | Outpatient (RCR) | payer OTHER, MEDICARE, SELFPAY ==
[2019-09-02 12:00] VITALS: BMI 23.4
--- NOTE | 2021-12-21 11:15 | PT.OIE ---
Current Diagnoses Hemiplegia and hemiparesis following cerebral infarction affecting right dominant side (12/21/21) Ataxic gait (12/21/21) Other abnormalities of gait and mobility (12/21/21) Weakness (12/21/21) Personal history of transient ischemic attack (TIA), and cerebral infarction without residual deficits (12/21/21) History of falling (12/21/21) Past Medical History (Last Updated 12/12/21 @ 15:42 by Bernice Lopez PA-C) Acute hyponatremia AICD (automatic cardioverter/defibrillator) present Antiphospholipid antibody syndrome Aphasia following cerebrovascular disease (01/27/15) CAD (coronary artery disease) Cardiac arrhythmia Cerebrovascular accident (CVA) involving left middle cerebral artery territory (09/01/15) Chronic atrial flutter (09/01/15) Chronic systolic congestive heart failure (09/01/15) Controlled insulin dependent diabetes mellitus Coronary artery disease involving [place] coronary artery of [place] heart without angina pectoris (09/01/15) CVA (cerebral vascular accident) Diabetes mellitus DVT (deep venous thrombosis) Essential hypertension (09/01/15) Facial laceration Hemiparesis affecting dominant side as late effect of cerebrovascular accident (01/27/15) History of stroke with residual deficit Hyperglycemia Hyperlipidemia (09/01/15) Hyperlipidemia Myocardial infarction Pacemaker Rheumatoid arthritis Stenosis of left carotid artery (12/22/13) Systolic heart failure Type 2 diabetes mellitus Weakness Past Surgical History (Last Updated 06/22/19 @ 19:08 by Vidya Yao RN) AICD (automatic cardioverter/defibrillator) present History of angioplasty Presence of cardiac pacemaker Visit Care Team Role Provider Type Delfino Epstein MD Primary Care Provider Physician Specialty: Family Practice Address: [address] [place] [address], [id number] Email: [email or web address] Bernice Lopez PA-C Attending Provider Advanced Freelance Digital Project Manager Referring Provider Specialty: Medical Address: [address], [address] Email: [email or web address] Physical Therapy Initial Evaluation PT-OP-A Visit Information Start: 12/21/21 17:31 Freq: Status: Active Protocol: Document 12/21/21 10:30 DCW (Rec: 12/22/21 08:50 DCW [id number]) Out-Patient Physical Therapy Visit Information Visit Information Visit Type Initial Evaluation Visit Start Time 10:30 Visit Stop Time 11:15 Total Visit Minutes 45 Visit Number 1 Number of HR PAYROLL COORDINATOR Visits 0 Evaluation Information Evaluation Date 12/21/21 PT-OP-B Current Condition Start: 12/21/21 17:31 Freq: Status: Active Protocol: Document 12/21/21 10:30 DCW (Rec: 12/22/21 08:50 DCW [id number]) Current Condition History of Current Condition Onset Date 2013 Current Complaints Decreased strength, stamina, near falls History of Current Condition Pt is a 66 year old male very well known to this clinic who comes in to skilled PT today with a recent decline in functional mobility, strength, activity tolerance, and balance. Pt had suffered a CVA in 2013, and has been seen multiple times at this clinic since that time to improve balance and activity tolerance . At baseline, pt has fairly significant right hemiparesis and is almost entirely non- verbal. 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 Pt's notes that pt has been experiencing some problems with his lab values, especially a decrease in sodium and iron. also notes that previously, pt would enjoy going out around the town, but now he just prefers to stay home and only moves around from his chair to the bathroom and back. During prior rounds of PT, it has been difficult to convince Sukh to participate in his HEP, however his notes that their son-in-law recently became a HR PAYROLL COORDINATOR, so they are hopeful that he will be able to help direct a more comprehensive HEP. Treatment Goals Patient/Caregiver Goals Decrease burden of care, decrease falls risk, improve activity tolerance PT-OP-C Subjective Start: 12/21/21 17:31 Freq: Status: Active Protocol: Document 12/21/21 10:30 DCW (Rec: 12/22/21 08:50 DCW [id number]) OP-PT Subjective Patient Comments Patient Comments Pt's notes he has had a number of near-falls recently. Patient Reported Progress Worse PT-OP-D Balance Start: 12/21/21 17:31 Freq: Status: Active Protocol: Document 12/21/21 10:30 DCW (Rec: 12/21/21 17:36 DCW [id number]) OP-PT Balance Assessment Sitting Balance Static Sitting Balance Ability Normal Dynamic Sitting Balance Ability Good Standing Balance Static Standing Balance Ability Fair Dynamic Standing Balance Ability Fair Balance Tests Bajwa Balance Test Bajwa Balance Test Score 28/56 Bajwa Impairment Rating 40 to 59% Impaired (Score 23- 33) Bajwa Balance Assessment Evaluation Sitting to Standing Ability Several Tries w/Hands Unsupported Stance 30 seconds Sitting Unsupported, Feet on Floor Safely- 2 minutes Standing to Sitting Ability Assist, Control w/Hands Transfer Ability Supervision, Verbal Cues Unsupported Stance- Eyes Closed Supervision, 10 seconds Unsupported Stance- Eyes Open Assist to attain, 15 secs Reaching Forward Standing Safely, 5 inches Pick- Up Object From Floor Supervision Look Behind Shoulder - Standing Shifts Weight Unilateral Turning 360 Degrees Supervision/Verbal Cues Unsupported Stance, Alternating Feet on Assist to Prevent Fall Stair Unsupported Tandem Stance Assist to Step-15 seconds Unilateral Leg Stance Unable,assist to not fall Total Score Bajwa Total Score (out of 56 points) 28 Bajwa Impairment Rating 40 to 59% Impaired (Score 23- 33) Estrella Fall Scale Copyright Permission PT-OP-E Functional Tests Start: 12/21/21 17:31 Freq: Status: Active Protocol: Document 12/21/21 10:30 DCW (Rec: 12/21/21 17:36 [facility] [id number]) Functional Tests 6 Minute Walk Test Distance 287 Device Used SPC Comments 0.80 ft/sec Timed Up and Go (TUG) Score 49.73 Comments /c SPC TUG Impairment Rating 100% Impaired (Score 20) PT-OP-G Mobility & Gait Start: 12/21/21 17:31 Freq: Status: Active Protocol: Document 12/21/21 10:30 DCW (Rec: 12/21/21 17:56 DCW [id number]) OP Gait Assessment Gait Gait Assistance Required: Standby Assistance Distance (Feet) 287 Able to Maintain Weight Bearing Status Yes During Gait Assistive Devices Assistive Device Gait Belt,Straight Cane Orthotic/Prosthetic Devices or Brace: Yes Gait Deviations General Gait Pattern Ataxic,Decreased Stride Length ,Decreased Feet Clearance, Flexed Trunk,Lateral Trunk Lean,Step-to Gait Factors Limiting Gait Function Factors Limiting Gait Function Abnormal Tonal Influences, Decreased Activity Tolerance, Decreased Strength,Limited Range of Motion,Poor Balance, Poor Safety Awareness Comments Gait Comments Pt ambulates with a step-to gait pattern, keeps his right arm in a flexed, guarded position, slow meenakshi, left foot internally rotated PT-OP-M Strength Start: 12/21/21 17:31 Freq: Status: Active Protocol: Document 12/21/21 10:30 DCW (Rec: 12/21/21 17:51 DCW [id number]) Hip Strength Hip Manual Muscle Testing Right Flexion (L2) 2 Poor Extension (S1) 2+ Poor+ Abduction 2- Poor- Adduction 3 Fair External Rotation 2 Poor Internal Rotation 2 Poor Left Flexion (L2) 4+ Good+ Extension (S1) 4- Good- Abduction 5 Normal Adduction 4+ Good+ External Rotation 4 Good Internal Rotation 4 Good Knee Strength Knee Manual Muscle Testing Right Flexion (S2) 2+ Poor+ Extension (L3) 3+ Fair+ Left Flexion (S2) 5 Normal Extension (L3) 5 Normal Ankle/Foot Strength Ankle and Foot Manual Muscle Testing Right Dorsiflexion (L4) 4 Good Plantarflexion (S1) 4 Good PT-OP-T Assessment and Plan Start: 12/21/21 17:31 Freq: Status: Active Protocol: Document 12/21/21 10:30 DCW (Rec: 12/21/21 17:48 DCW [id number]) Physical Therapy Assessment Rehab Potential Rehabilitation Potential Good Evaluation Complexity Number of Personal Factors/Comorbidities 3 or More Number of Body Systems Impaired 4 or More Clinical Presentation at Evaluation Unstable Impairments Impairments Activity Tolerance,Balance, Functional Activities, Functional Mobility,Gait,Soft Tissue Mobility,Strength, Transfers Other Concerns Fall Risk High Goals Three Impairment Pt in high falls-risk category Short Term Goal (STG) Pt to improve 6MWT distance by at least 180' to 467' STG Duration 02/18/22 Detention Goal (LTG) Pt to increase Bajwa score by at least 7 points to 35/56 to demonstrate a decrease in his falls risk LTG Duration 03/20/22 Two Impairment Pt exhibits R LE MMT measured between 2-/5 to 3+/5 Detention Goal (LTG) Pt to improve R LE MMT in all planes to at least 3/5 LTG Duration 03/20/22 One Impairment Pt does not participate in an appropriate home exercise program Short Term Goal (STG) Pt to be compliant with an approrpiate HEP STG Duration 02/18/22 Assessment Summary Assessment Pt presents to skilled therapy following a decline in function due to inactivity. Pt has been seen in this clinic off and on since his initial CVA in 2013, and returns with a decrease from baseline function. Pt'a TUG score of 47 .73, 6MWT score of 287, and Bajwa score of 28/56 are all suggestive of an increased falls risk. Pt displays weakness in R lower extremities. Gait has become much more guarded, with his right arm flexed and held against his body, and he has a constant step-to pattern with his left leg. Pt should benefit from skilled therapy with a focus on a return to his recent post-CVA level of function, improving gait and leg strength, and decreasing falls risk. Physical Therapy Plan Frequency and Duration Frequency of Treatment 2x/Week Duration of Treatment Three months Plan of Care Start Date 12/21/21 Plan of Care End Date 03/20/22 Therapeutic Interventions Therapeutic Interventions Aquatic Therapy,Balance Training,Gait Training,Home Exercise Program,Joint Mobilizations,Manual Therapy, Neuromuscular Re-education, Patient/Caregiver Education, Self-Care/Home Management,Soft Tissue Mobilization, Therapeutic Activities, Therapeutic Exercises Next Visit Focus/Plan Next Note Type Treatment Note Next Visit Plan LE strengthening, gait training, balance challenges
--- NOTE | 2021-12-21 11:15 | PT.OPPOC ---
Physical, Occupational & Speech Therapy At [facility] Current Diagnoses Hemiplegia and hemiparesis following cerebral infarction affecting right dominant side (12/21/21) Ataxic gait (12/21/21) Other abnormalities of gait and mobility (12/21/21) Weakness (12/21/21) Personal history of transient ischemic attack (TIA), and cerebral infarction without residual deficits (12/21/21) History of falling (12/21/21) Visit Care Team Role Provider Type Delfino Epstein MD Primary Care Provider Physician Specialty: Family Practice Address: [address] [place] [address], [facility] Email: [email or web address] Bernice Lopez PA-C Attending Provider Advanced Recreation Activities Coordinator Referring Provider Specialty: Medical Address: [address], [facility] Email: [email or web address] Plan Of Care PT-OP-T Assessment and Plan Start: 12/21/21 17:31 Freq: Status: Active Protocol: Document 12/21/21 10:30 DCW (Rec: 12/21/21 17:48 DCW [id number]) Physical Therapy Assessment Rehab Potential Rehabilitation Potential Good Evaluation Complexity Number of Personal Factors/Comorbidities 3 or More Number of Body Systems Impaired 4 or More Clinical Presentation at Evaluation Unstable Impairments Impairments Activity Tolerance,Balance, Functional Activities, Functional Mobility,Gait,Soft Tissue Mobility,Strength, Transfers Other Concerns Fall Risk High Goals Three Impairment Pt in high falls-risk category Short Term Goal (STG) Pt to improve 6MWT distance by at least 180' to 467' STG Duration 02/18/22 Intermediate Goal (LTG) Pt to increase Bajwa score by at least 7 points to 35/56 to demonstrate a decrease in his falls risk LTG Duration 03/20/22 Two Impairment Pt exhibits R LE MMT measured between 2-/5 to 3+/5 Intermediate Goal (LTG) Pt to improve R LE MMT in all planes to at least 3/5 LTG Duration 03/20/22 One Impairment Pt does not participate in an appropriate home exercise program Short Term Goal (STG) Pt to be compliant with an approrpiate HEP STG Duration 02/18/22 Assessment Summary Assessment Pt presents to skilled therapy following a decline in function due to inactivity. Pt has been seen in this clinic off and on since his initial CVA in 2013, and returns with a decrease from baseline function. Pt'a TUG score of 47 .73, 6MWT score of 287, and Bajwa score of 28/56 are all suggestive of an increased falls risk. Pt displays weakness in R lower extremities. Gait has become much more guarded, with his right arm flexed and held against his body, and he has a constant step-to pattern with his left leg. Pt should benefit from skilled therapy with a focus on a return to his recent post-CVA level of function, improving gait and leg strength, and decreasing falls risk. Physical Therapy Plan Frequency and Duration Frequency of Treatment 2x/Week Duration of Treatment Three months Plan of Care Start Date 12/21/21 Plan of Care End Date 03/20/22 Therapeutic Interventions Therapeutic Interventions Aquatic Therapy,Balance Training,Gait Training,Home Exercise Program,Joint Mobilizations,Manual Therapy, Neuromuscular Re-education, Patient/Caregiver Education, Self-Care/Home Management,Soft Tissue Mobilization, Therapeutic Activities, Therapeutic Exercises Next Visit Focus/Plan Next Note Type Treatment Note Next Visit Plan LE strengthening, gait training, balance challenges Plan of Care Dates Plan of Care Start Date 12/21/21 Plan of Care End Date 03/20/22 Electronically Signed by: Jefferson Ceron, PT 12/22/21 0851 Please Sign and Return: I have reviewed this Plan of Care and certify that the skilled therapy services above are required to meet the patient?s needs. Physician Signature Date Printed Name and Credentials Clinical Instructor Signature Printed Name and Credentials
--- NOTE | 2021-12-22 08:51 | PT.OIE ---
Current Diagnoses Hemiplegia and hemiparesis following cerebral infarction affecting right dominant side (12/21/21) Ataxic gait (12/21/21) Other abnormalities of gait and mobility (12/21/21) Weakness (12/21/21) Personal history of transient ischemic attack (TIA), and cerebral infarction without residual deficits (12/21/21) History of falling (12/21/21) Past Medical History (Last Updated 12/12/21 @ 15:42 by Bernice Lopez PA-C) Acute hyponatremia AICD (automatic cardioverter/defibrillator) present Antiphospholipid antibody syndrome Aphasia following cerebrovascular disease (01/27/15) CAD (coronary artery disease) Cardiac arrhythmia Cerebrovascular accident (CVA) involving left middle cerebral artery territory (09/01/15) Chronic atrial flutter (09/01/15) Chronic systolic congestive heart failure (09/01/15) Controlled insulin dependent diabetes mellitus Coronary artery disease involving [place] coronary artery of [place] heart without angina pectoris (09/01/15) CVA (cerebral vascular accident) Diabetes mellitus DVT (deep venous thrombosis) Essential hypertension (09/01/15) Facial laceration Hemiparesis affecting dominant side as late effect of cerebrovascular accident (01/27/15) History of stroke with residual deficit Hyperglycemia Hyperlipidemia (09/01/15) Hyperlipidemia Myocardial infarction Pacemaker Rheumatoid arthritis Stenosis of left carotid artery (12/22/13) Systolic heart failure Type 2 diabetes mellitus Weakness Past Surgical History (Last Updated 06/22/19 @ 19:08 by Vidya Yao RN) AICD (automatic cardioverter/defibrillator) present History of angioplasty Presence of cardiac pacemaker Visit Care Team Role Provider Type Delfino Epstein MD Primary Care Provider Physician Specialty: Family Practice Address: [address] [place] [address], [address] Email: [email or web address] Lopez PA-C Attending Provider Advanced Mental Health Specialist Referring Provider Specialty: Medical Address: [address], [address] Email: [email or web address] Physical Therapy Initial Evaluation PT-OP-A Visit Information Start: 12/21/21 17:31 Freq: Status: Active Protocol: Document 12/21/21 10:30 DCW (Rec: 12/22/21 08:50 DCW [id number]) Out-Patient Physical Therapy Visit Information Visit Information Visit Type Initial Evaluation Visit Start Time 10:30 Visit Stop Time 11:15 Total Visit Minutes 45 Visit Number 1 Number of IMPORT COORDINATOR Visits 0 Evaluation Information Evaluation Date 12/21/21 PT-OP-B Current Condition Start: 12/21/21 17:31 Freq: Status: Active Protocol: Document 12/21/21 10:30 DCW (Rec: 12/22/21 08:50 DCW [id number]) Current Condition History of Current Condition Onset Date 2013 Current Complaints Decreased strength, stamina, near falls History of Current Condition Pt is a 66 year old male very well known to this clinic who comes in to skilled PT today with a recent decline in functional mobility, strength, activity tolerance, and balance. Pt had suffered a CVA in 2013, and has been seen multiple times at this clinic since that time to improve balance and activity tolerance . At baseline, pt has fairly significant right hemiparesis and is almost entirely non- verbal. 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 Pt's notes that pt has been experiencing some problems with his lab values, especially a decrease in sodium and iron. also notes that previously, pt would enjoy going out around the town, but now he just prefers to stay home and only moves around from his chair to the bathroom and back. During prior rounds of PT, it has been difficult to convince Sukh to participate in his HEP, however his notes that their son-in-law recently became a IMPORT COORDINATOR, so they are hopeful that he will be able to help direct a more comprehensive HEP. Treatment Goals Patient/Caregiver Goals Decrease burden of care, decrease falls risk, improve activity tolerance PT-OP-C Subjective Start: 12/21/21 17:31 Freq: Status: Active Protocol: Document 12/21/21 10:30 DCW (Rec: 12/22/21 08:50 DCW [id number]) OP-PT Subjective Patient Comments Patient Comments Pt's notes he has had a number of near-falls recently. Patient Reported Progress Worse PT-OP-D Balance Start: 12/21/21 17:31 Freq: Status: Active Protocol: Document 12/21/21 10:30 DCW (Rec: 12/21/21 17:36 DCW [id number]) OP-PT Balance Assessment Sitting Balance Static Sitting Balance Ability Normal Dynamic Sitting Balance Ability Good Standing Balance Static Standing Balance Ability Fair Dynamic Standing Balance Ability Fair Balance Tests Bajwa Balance Test Bajwa Balance Test Score 28/56 Bajwa Impairment Rating 40 to 59% Impaired (Score 23- 33) Bajwa Balance Assessment Evaluation Sitting to Standing Ability Several Tries w/Hands Unsupported Stance 30 seconds Sitting Unsupported, Feet on Floor Safely- 2 minutes Standing to Sitting Ability Assist, Control w/Hands Transfer Ability Supervision, Verbal Cues Unsupported Stance- Eyes Closed Supervision, 10 seconds Unsupported Stance- Eyes Open Assist to attain, 15 secs Reaching Forward Standing Safely, 5 inches Pick- Up Object From Floor Supervision Look Behind Shoulder - Standing Shifts Weight Unilateral Turning 360 Degrees Supervision/Verbal Cues Unsupported Stance, Alternating Feet on Assist to Prevent Fall Stair Unsupported Tandem Stance Assist to Step-15 seconds Unilateral Leg Stance Unable,assist to not fall Total Score Bajwa Total Score (out of 56 points) 28 Bajwa Impairment Rating 40 to 59% Impaired (Score 23- 33) Estrella Fall Scale Copyright Permission PT-OP-E Functional Tests Start: 12/21/21 17:31 Freq: Status: Active Protocol: Document 12/21/21 10:30 DCW (Rec: 12/21/21 17:36 [facility] [id number]) Functional Tests 6 Minute Walk Test Distance 287 Device Used SPC Comments 0.80 ft/sec Timed Up and Go (TUG) Score 49.73 Comments /c SPC TUG Impairment Rating 100% Impaired (Score 20) PT-OP-G Mobility & Gait Start: 12/21/21 17:31 Freq: Status: Active Protocol: Document 12/21/21 10:30 DCW (Rec: 12/21/21 17:56 DCW [id number]) OP Gait Assessment Gait Gait Assistance Required: Standby Assistance Distance (Feet) 287 Able to Maintain Weight Bearing Status Yes During Gait Assistive Devices Assistive Device Gait Belt,Straight Cane Orthotic/Prosthetic Devices or Brace: Yes Gait Deviations General Gait Pattern Ataxic,Decreased Stride Length ,Decreased Feet Clearance, Flexed Trunk,Lateral Trunk Lean,Step-to Gait Factors Limiting Gait Function Factors Limiting Gait Function Abnormal Tonal Influences, Decreased Activity Tolerance, Decreased Strength,Limited Range of Motion,Poor Balance, Poor Safety Awareness Comments Gait Comments Pt ambulates with a step-to gait pattern, keeps his right arm in a flexed, guarded position, slow meenakshi, left foot internally rotated PT-OP-M Strength Start: 12/21/21 17:31 Freq: Status: Active Protocol: Document 12/21/21 10:30 DCW (Rec: 12/21/21 17:51 DCW [id number]) Hip Strength Hip Manual Muscle Testing Right Flexion (L2) 2 Poor Extension (S1) 2+ Poor+ Abduction 2- Poor- Adduction 3 Fair External Rotation 2 Poor Internal Rotation 2 Poor Left Flexion (L2) 4+ Good+ Extension (S1) 4- Good- Abduction 5 Normal Adduction 4+ Good+ External Rotation 4 Good Internal Rotation 4 Good Knee Strength Knee Manual Muscle Testing Right Flexion (S2) 2+ Poor+ Extension (L3) 3+ Fair+ Left Flexion (S2) 5 Normal Extension (L3) 5 Normal Ankle/Foot Strength Ankle and Foot Manual Muscle Testing Right Dorsiflexion (L4) 4 Good Plantarflexion (S1) 4 Good PT-OP-T Assessment and Plan Start: 12/21/21 17:31 Freq: Status: Active Protocol: Document 12/21/21 10:30 DCW (Rec: 12/21/21 17:48 DCW [id number]) Physical Therapy Assessment Rehab Potential Rehabilitation Potential Good Evaluation Complexity Number of Personal Factors/Comorbidities 3 or More Number of Body Systems Impaired 4 or More Clinical Presentation at Evaluation Unstable Impairments Impairments Activity Tolerance,Balance, Functional Activities, Functional Mobility,Gait,Soft Tissue Mobility,Strength, Transfers Other Concerns Fall Risk High Goals Three Impairment Pt in high falls-risk category Short Term Goal (STG) Pt to improve 6MWT distance by at least 180' to 467' STG Duration 02/18/22 Intermediate Goal (LTG) Pt to increase Bajwa score by at least 7 points to 35/56 to demonstrate a decrease in his falls risk LTG Duration 03/20/22 Two Impairment Pt exhibits R LE MMT measured between 2-/5 to 3+/5 Intermediate Goal (LTG) Pt to improve R LE MMT in all planes to at least 3/5 LTG Duration 03/20/22 One Impairment Pt does not participate in an appropriate home exercise program Short Term Goal (STG) Pt to be compliant with an approrpiate HEP STG Duration 02/18/22 Assessment Summary Assessment Pt presents to skilled therapy following a decline in function due to inactivity. Pt has been seen in this clinic off and on since his initial CVA in 2013, and returns with a decrease from baseline function. Pt'a TUG score of 47 .73, 6MWT score of 287, and Bajwa score of 28/56 are all suggestive of an increased falls risk. Pt displays weakness in R lower extremities. Gait has become much more guarded, with his right arm flexed and held against his body, and he has a constant step-to pattern with his left leg. Pt should benefit from skilled therapy with a focus on a return to his recent post-CVA level of function, improving gait and leg strength, and decreasing falls risk. Physical Therapy Plan Frequency and Duration Frequency of Treatment 2x/Week Duration of Treatment Three months Plan of Care Start Date 12/21/21 Plan of Care End Date 03/20/22 Therapeutic Interventions Therapeutic Interventions Aquatic Therapy,Balance Training,Gait Training,Home Exercise Program,Joint Mobilizations,Manual Therapy, Neuromuscular Re-education, Patient/Caregiver Education, Self-Care/Home Management,Soft Tissue Mobilization, Therapeutic Activities, Therapeutic Exercises Next Visit Focus/Plan Next Note Type Treatment Note Next Visit Plan LE strengthening, gait training, balance challenges
--- NOTE | 2021-12-25 12:03 | PT.OTN ---
Current Diagnoses Hemiplegia and hemiparesis following cerebral infarction affecting right dominant side (12/25/21) Ataxic gait (12/25/21) Other abnormalities of gait and mobility (12/25/21) Weakness (12/25/21) Personal history of transient ischemic attack (TIA), and cerebral infarction without residual deficits (12/25/21) History of falling (12/25/21) Physical Therapy Treatment Note PT-OP-A Visit Information Start: 12/21/21 17:31 Freq: Status: Active Protocol: Document 12/25/21 11:15 DCW (Rec: 12/25/21 12:03 DCW [id number]) Out-Patient Physical Therapy Visit Information Visit Information Visit Type Treatment Note Visit Start Time 11:15 Visit Stop Time 12:00 Total Visit Minutes 45 Visit Number 2 Number of CONTROL PANEL ASSEMBLER Visits 0 Evaluation Information Evaluation Date 12/21/21 PT-OP-B Current Condition Start: 12/21/21 17:31 Freq: Status: Active Protocol: Document 12/21/21 10:30 DCW (Rec: 12/22/21 08:50 DCW [id number]) Current Condition History of Current Condition Onset Date 2013 Current Complaints Decreased strength, stamina, near falls History of Current Condition Pt is a 66 year old male very well known to this clinic who comes in to skilled PT today with a recent decline in functional mobility, strength, activity tolerance, and balance. Pt had suffered a CVA in 2013, and has been seen multiple times at this clinic since that time to improve balance and activity tolerance . At baseline, pt has fairly significant right hemiparesis and is almost entirely non- verbal. 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 Pt's notes that pt has been experiencing some problems with his lab values, especially a decrease in sodium and iron. also notes that previously, pt would enjoy going out around the town, but now he just prefers to stay home and only moves around from his chair to the bathroom and back. During prior rounds of PT, it has been difficult to convince Sukh to participate in his HEP, however his notes that their son-in-law recently became a CONTROL PANEL ASSEMBLER, so they are hopeful that he will be able to help direct a more comprehensive HEP. Treatment Goals Patient/Caregiver Goals Decrease burden of care, decrease falls risk, improve activity tolerance PT-OP-C Subjective Start: 12/21/21 17:31 Freq: Status: Active Protocol: Document 12/25/21 11:15 DCW (Rec: 12/25/21 12:03 DCW [id number]) OP-PT Subjective Patient Comments Patient Comments Pt indicates he is doing well today. PT-OP-D Balance Start: 12/21/21 17:31 Freq: Status: Active Protocol: Document 12/21/21 10:30 DCW (Rec: 12/21/21 17:36 DCW [id number]) OP-PT Balance Assessment Sitting Balance Static Sitting Balance Ability Normal Dynamic Sitting Balance Ability Good Standing Balance Static Standing Balance Ability Fair Dynamic Standing Balance Ability Fair Balance Tests Bajwa Balance Test Bajwa Balance Test Score 28/56 Bajwa Impairment Rating 40 to 59% Impaired (Score 23- 33) Bajwa Balance Assessment Evaluation Sitting to Standing Ability Several Tries w/Hands Unsupported Stance 30 seconds Sitting Unsupported, Feet on Floor Safely- 2 minutes Standing to Sitting Ability Assist, Control w/Hands Transfer Ability Supervision, Verbal Cues Unsupported Stance- Eyes Closed Supervision, 10 seconds Unsupported Stance- Eyes Open Assist to attain, 15 secs Reaching Forward Standing Safely, 5 inches Pick- Up Object From Floor Supervision Look Behind Shoulder - Standing Shifts Weight Unilateral Turning 360 Degrees Supervision/Verbal Cues Unsupported Stance, Alternating Feet on Assist to Prevent Fall Stair Unsupported Tandem Stance Assist to Step-15 seconds Unilateral Leg Stance Unable,assist to not fall Total Score Bajwa Total Score (out of 56 points) 28 Bajwa Impairment Rating 40 to 59% Impaired (Score 23- 33) Estrella Fall Scale Copyright Permission PT-OP-E Functional Tests Start: 12/21/21 17:31 Freq: Status: Active Protocol: Document 12/21/21 10:30 DCW (Rec: 12/21/21 17:36 DCW [id number]) Functional Tests 6 Minute Walk Test Distance 287 Device Used SPC Comments 0.80 ft/sec Timed Up and Go (TUG) Score 49.73 Comments /c SPC TUG Impairment Rating 100% Impaired (Score 20) PT-OP-G Mobility & Gait Start: 12/21/21 17:31 Freq: Status: Active Protocol: Document 12/21/21 10:30 DCW (Rec: 12/21/21 17:56 DCW [id number]) OP Gait Assessment Gait Gait Assistance Required: Standby Assistance Distance (Feet) 287 Able to Maintain Weight Bearing Status Yes During Gait Assistive Devices Assistive Device Gait Belt,Straight Cane Orthotic/Prosthetic Devices or Brace: Yes Gait Deviations General Gait Pattern Ataxic,Decreased Stride Length ,Decreased Feet Clearance, Flexed Trunk,Lateral Trunk Lean,Step-to Gait Factors Limiting Gait Function Factors Limiting Gait Function Abnormal Tonal Influences, Decreased Activity Tolerance, Decreased Strength,Limited Range of Motion,Poor Balance, Poor Safety Awareness Comments Gait Comments Pt ambulates with a step-to gait pattern, keeps his right arm in a flexed, guarded position, slow meenakshi, left foot internally rotated PT-OP-M Strength Start: 12/21/21 17:31 Freq: Status: Active Protocol: Document 12/21/21 10:30 DCW (Rec: 12/21/21 17:51 DCW [id number]) Hip Strength Hip Manual Muscle Testing Right Flexion (L2) 2 Poor Extension (S1) 2+ Poor+ Abduction 2- Poor- Adduction 3 Fair External Rotation 2 Poor Internal Rotation 2 Poor Left Flexion (L2) 4+ Good+ Extension (S1) 4- Good- Abduction 5 Normal Adduction 4+ Good+ External Rotation 4 Good Internal Rotation 4 Good Knee Strength Knee Manual Muscle Testing Right Flexion (S2) 2+ Poor+ Extension (L3) 3+ Fair+ Left Flexion (S2) 5 Normal Extension (L3) 5 Normal Ankle/Foot Strength Ankle and Foot Manual Muscle Testing Right Dorsiflexion (L4) 4 Good Plantarflexion (S1) 4 Good PT-OP-Q Treatments Start: 12/21/21 17:31 Freq: Status: Active Protocol: Document 12/25/21 11:15 DCW (Rec: 12/25/21 12:03 DCW [id number]) Cardio Equipment Recumbent Elliptical (Biodex) Duration (Minutes) 5 Resistance 4 Seat Position 9 Gym Equipment Shuttle Recovery Unilateral Squats Resistance 37# Shuttle Recovery Platform Stable Reps/Time x15 bilaterally Bilateral Squats Details Ball between knees Resistance 75# Shuttle Recovery Platform Stable Reps/Time x15 Shuttle Balance red clips Details Red Comments Wide NATE, narrowed incrementally. Staggered. Required CGA. Therapeutic Exercises Sitting Exercises 1 Sitting Exercise Name Hamstring curls Side bilateral Resistance Lv 2 T-band Standing Exercises 1 Standing Exercise Name Toe-taps Side bilateral Resistance 4# Equipment Used 6 step Other Exercises 1 Other Exercise Name Sit<->Stand Comments CGA Gait Training Gait Activity gait Description 2 point pattern Device Used LBQC, gait belt Level of Assistance CGA Distance/Duration 140 Treatment Focus 2 point pattern Comments Verbal and tactile cues for arm swing, metronome at 60 bpm for pacing, verbal cues for increased left step PT-OP-T Assessment and Plan Start: 12/21/21 17:31 Freq: Status: Active Protocol: Document 12/25/21 11:15 DCW (Rec: 12/25/21 12:03 DCW [id number]) Physical Therapy Assessment Impairments Impairments Activity Tolerance,Balance, Functional Activities, Functional Mobility,Gait,Soft Tissue Mobility,Strength, Transfers Other Concerns Fall Risk High Goals Three Impairment Pt in high falls-risk category Short Term Goal (STG) Pt to improve 6MWT distance by at least 180' to 467' STG Duration 02/18/22 Senior Care Goal (LTG) Pt to increase Bajwa score by at least 7 points to 35/56 to demonstrate a decrease in his falls risk LTG Duration 03/20/22 Two Impairment Pt exhibits R LE MMT measured between 2-/5 to 3+/5 Senior Care Goal (LTG) Pt to improve R LE MMT in all planes to at least 3/5 LTG Duration 03/20/22 One Impairment Pt does not participate in an appropriate home exercise program Short Term Goal (STG) Pt to be compliant with an appropriate HEP STG Duration 02/18/22 Assessment Summary Assessment Pt fatigued with most activity today, needed a few rest breaks. Overall fairly more motivated with activity today than he has been in the past during PT sessions. Physical Therapy Plan Frequency and Duration Frequency of Treatment 2x/Week Duration of Treatment Three months Plan of Care Start Date 12/21/21 Plan of Care End Date 03/20/22 Therapeutic Interventions Therapeutic Interventions Aquatic Therapy,Balance Training,Gait Training,Home Exercise Program,Joint Mobilizations,Manual Therapy, Neuromuscular Re-education, Patient/Caregiver Education, Self-Care/Home Management,Soft Tissue Mobilization, Therapeutic Activities, Therapeutic Exercises Next Visit Focus/Plan Next Note Type Treatment Note Next Visit Plan LE strengthening, gait training, balance challenges
--- NOTE | 2021-12-27 12:44 | PT.OTN ---
Current Diagnoses Hemiplegia and hemiparesis following cerebral infarction affecting right dominant side (12/27/21) Ataxic gait (12/27/21) Other abnormalities of gait and mobility (12/27/21) Weakness (12/27/21) Personal history of transient ischemic attack (TIA), and cerebral infarction without residual deficits (12/27/21) History of falling (12/27/21) Physical Therapy Treatment Note PT-OP-A Visit Information Start: 12/21/21 17:31 Freq: Status: Active Protocol: Document 12/27/21 12:00 DCW (Rec: 12/27/21 12:44 DCW [id number]) Out-Patient Physical Therapy Visit Information Visit Information Visit Type Treatment Note Visit Start Time 12:00 Visit Stop Time 12:45 Total Visit Minutes 45 Visit Number 3 Number of BENCH MANAGER Visits 0 Evaluation Information Evaluation Date 12/21/21 PT-OP-B Current Condition Start: 12/21/21 17:31 Freq: Status: Active Protocol: Document 12/21/21 10:30 DCW (Rec: 12/22/21 08:50 DCW [id number]) Current Condition History of Current Condition Onset Date 2013 Current Complaints Decreased strength, stamina, near falls History of Current Condition Pt is a 66 year old male very well known to this clinic who comes in to skilled PT today with a recent decline in functional mobility, strength, activity tolerance, and balance. Pt had suffered a CVA in 2013, and has been seen multiple times at this clinic since that time to improve balance and activity tolerance . At baseline, pt has fairly significant right hemiparesis and is almost entirely non- verbal. 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 Pt's notes that pt has been experiencing some problems with his lab values, especially a decrease in sodium and iron. also notes that previously, pt would enjoy going out around the town, but now he just prefers to stay home and only moves around from his chair to the bathroom and back. During prior rounds of PT, it has been difficult to convince Sukh to participate in his HEP, however his notes that their son-in-law recently became a BENCH MANAGER, so they are hopeful that he will be able to help direct a more comprehensive HEP. Treatment Goals Patient/Caregiver Goals Decrease burden of care, decrease falls risk, improve activity tolerance PT-OP-C Subjective Start: 02/17/22 17:31 Freq: Status: Active Protocol: Document 12/27/21 12:00 DCW (Rec: 12/27/21 12:44 DCW [id number]) OP-PT Subjective Patient Comments Patient Comments Pt indicates he is doing well today. PT-OP-D Balance Start: 12/21/21 17:31 Freq: Status: Active Protocol: Document 12/21/21 10:30 DCW (Rec: 12/21/21 17:36 DCW [id number]) OP-PT Balance Assessment Sitting Balance Static Sitting Balance Ability Normal Dynamic Sitting Balance Ability Good Standing Balance Static Standing Balance Ability Fair Dynamic Standing Balance Ability Fair Balance Tests Bajwa Balance Test Bajwa Balance Test Score 28/56 Bajwa Impairment Rating 40 to 59% Impaired (Score 23- 33) Bajwa Balance Assessment Evaluation Sitting to Standing Ability Several Tries w/Hands Unsupported Stance 30 seconds Sitting Unsupported, Feet on Floor Safely- 2 minutes Standing to Sitting Ability Assist, Control w/Hands Transfer Ability Supervision, Verbal Cues Unsupported Stance- Eyes Closed Supervision, 10 seconds Unsupported Stance- Eyes Open Assist to attain, 15 secs Reaching Forward Standing Safely, 5 inches Pick- Up Object From Floor Supervision Look Behind Shoulder - Standing Shifts Weight Unilateral Turning 360 Degrees Supervision/Verbal Cues Unsupported Stance, Alternating Feet on Assist to Prevent Fall Stair Unsupported Tandem Stance Assist to Step-15 seconds Unilateral Leg Stance Unable,assist to not fall Total Score Bajwa Total Score (out of 56 points) 28 Bajwa Impairment Rating 40 to 59% Impaired (Score 23- 33) Estrella Fall Scale Copyright Permission PT-OP-E Functional Tests Start: 12/21/21 17:31 Freq: Status: Active Protocol: Document 12/21/21 10:30 DCW (Rec: 12/21/21 17:36 DCW [id number]) Functional Tests 6 Minute Walk Test Distance 287 Device Used SPC Comments 0.80 ft/sec Timed Up and Go (TUG) Score 49.73 Comments /c SPC TUG Impairment Rating 100% Impaired (Score 20) PT-OP-G Mobility & Gait Start: 12/21/21 17:31 Freq: Status: Active Protocol: Document 12/21/21 10:30 DCW (Rec: 12/21/21 17:56 DCW [id number]) OP Gait Assessment Gait Gait Assistance Required: Standby Assistance Distance (Feet) 287 Able to Maintain Weight Bearing Status Yes During Gait Assistive Devices Assistive Device Gait Belt,Straight Cane Orthotic/Prosthetic Devices or Brace: Yes Gait Deviations General Gait Pattern Ataxic,Decreased Stride Length ,Decreased Feet Clearance, Flexed Trunk,Lateral Trunk Lean,Step-to Gait Factors Limiting Gait Function Factors Limiting Gait Function Abnormal Tonal Influences, Decreased Activity Tolerance, Decreased Strength,Limited Range of Motion,Poor Balance, Poor Safety Awareness Comments Gait Comments Pt ambulates with a step-to gait pattern, keeps his right arm in a flexed, guarded position, slow meenakshi, left foot internally rotated PT-OP-M Strength Start: 12/21/21 17:31 Freq: Status: Active Protocol: Document 12/21/21 10:30 DCW (Rec: 12/21/21 17:51 DCW [id number]) Hip Strength Hip Manual Muscle Testing Right Flexion (L2) 2 Poor Extension (S1) 2+ Poor+ Abduction 2- Poor- Adduction 3 Fair External Rotation 2 Poor Internal Rotation 2 Poor Left Flexion (L2) 4+ Good+ Extension (S1) 4- Good- Abduction 5 Normal Adduction 4+ Good+ External Rotation 4 Good Internal Rotation 4 Good Knee Strength Knee Manual Muscle Testing Right Flexion (S2) 2+ Poor+ Extension (L3) 3+ Fair+ Left Flexion (S2) 5 Normal Extension (L3) 5 Normal Ankle/Foot Strength Ankle and Foot Manual Muscle Testing Right Dorsiflexion (L4) 4 Good Plantarflexion (S1) 4 Good PT-OP-Q Treatments Start: 12/21/21 17:31 Freq: Status: Active Protocol: Document 12/27/21 12:00 DCW (Rec: 12/27/21 12:44 DCW [id number]) Cardio Equipment Recumbent Elliptical (Biodex) Duration (Minutes) 5 Resistance 6 Seat Position 9 Gym Equipment Shuttle Recovery Unilateral Squats Resistance 37# Shuttle Recovery Platform Stable Reps/Time x15 bilaterally Bilateral Squats Details Ball between knees Resistance 75# Shuttle Recovery Platform Stable Reps/Time x15 Shuttle Balance red clips Details Red Comments Wide NATE, narrowed incrementally. Staggered. Required CGA. Therapeutic Exercises Sitting Exercises 2 Sitting Exercise Name LAQ Side bilateral Resistance 5# Standing Exercises 1 Standing Exercise Name Toe-taps Side bilateral Resistance 5# Equipment Used 6 step Gait Training Gait Activity gait Description 2 point pattern Device Used LBQC, gait belt Level of Assistance CGA Distance/Duration 190 Treatment Focus 2 point pattern Comments Verbal and tactile cues for arm swing, metronome at 60 bpm for pacing, verbal cues for increased left step Neuro Re-Education Treatment Balance Activities Tandem Details Tandem stance Equipment // bars PT-OP-T Assessment and Plan Start: 12/21/21 17:31 Freq: Status: Active Protocol: Document 12/27/21 12:00 DCW (Rec: 12/27/21 12:44 DCW [id number]) Physical Therapy Assessment Impairments Impairments Activity Tolerance,Balance, Functional Activities, Functional Mobility,Gait,Soft Tissue Mobility,Strength, Transfers Other Concerns Fall Risk High Goals Three Impairment Pt in high falls-risk category Short Term Goal (STG) Pt to improve 6MWT distance by at least 180' to 467' STG Duration 02/18/22 Group Home Goal (LTG) Pt to increase Bajwa score by at least 7 points to 35/56 to demonstrate a decrease in his falls risk LTG Duration 03/20/22 Two Impairment Pt exhibits R LE MMT measured between 2-/5 to 3+/5 Squash Centre Manager Goal (LTG) Pt to improve R LE MMT in all planes to at least 3/5 LTG Duration 03/20/22 One Impairment Pt does not participate in an appropriate home exercise program Short Term Goal (STG) Pt to be compliant with an appropriate HEP STG Duration 02/18/22 Assessment Summary Assessment Pt experienced less fatigue today, fewer rest breaks, pt was able to walk further during gait training. Physical Therapy Plan Frequency and Duration Frequency of Treatment 2x/Week Duration of Treatment Three months Plan of Care Start Date 12/21/21 Plan of Care End Date 03/20/22 Therapeutic Interventions Therapeutic Interventions Aquatic Therapy,Balance Training,Gait Training,Home Exercise Program,Joint Mobilizations,Manual Therapy, Neuromuscular Re-education, Patient/Caregiver Education, Self-Care/Home Management,Soft Tissue Mobilization, Therapeutic Activities, Therapeutic Exercises Next Visit Focus/Plan Next Note Type Treatment Note Next Visit Plan LE strengthening, gait training, balance challenges
--- NOTE | 2022-01-03 15:59 | PT.OTN ---
Current Diagnoses Hemiplegia and hemiparesis following cerebral infarction affecting right dominant side (01/03/22) Ataxic gait (01/03/22) Other abnormalities of gait and mobility (01/03/22) Weakness (01/03/22) Personal history of transient ischemic attack (TIA), and cerebral infarction without residual deficits (01/03/22) History of falling (01/03/22) Physical Therapy Treatment Note PT-OP-A Visit Information Start: 12/21/21 17:31 Freq: Status: Active Protocol: Document 01/03/22 15:16 DCW (Rec: 01/03/22 15:59 DCW [id number]) Out-Patient Physical Therapy Visit Information Visit Information Visit Type Treatment Note Visit Start Time 15:16 Visit Stop Time 16:00 Total Visit Minutes 44 Visit Number 4 Number of HYDRAULIC MINER Visits 0 Evaluation Information Evaluation Date 12/21/21 PT-OP-B Current Condition Start: 12/21/21 17:31 Freq: Status: Active Protocol: Document 12/21/21 10:30 DCW (Rec: 12/22/21 08:50 DCW [id number]) Current Condition History of Current Condition Onset Date 2013 Current Complaints Decreased strength, stamina, near falls History of Current Condition Pt is a 66 year old male very well known to this clinic who comes in to skilled PT today with a recent decline in functional mobility, strength, activity tolerance, and balance. Pt had suffered a CVA in 2013, and has been seen multiple times at this clinic since that time to improve balance and activity tolerance . At baseline, pt has fairly significant right hemiparesis and is almost entirely non- verbal. 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 Pt's notes that pt has been experiencing some problems with his lab values, especially a decrease in sodium and iron. also notes that previously, pt would enjoy going out around the town, but now he just prefers to stay home and only moves around from his chair to the bathroom and back. During prior rounds of PT, it has been difficult to convince Sukh to participate in his HEP, however his notes that their son-in-law recently became a HYDRAULIC MINER, so they are hopeful that he will be able to help direct a more comprehensive HEP. Treatment Goals Patient/Caregiver Goals Decrease burden of care, decrease falls risk, improve activity tolerance PT-OP-C Subjective Start: 12/21/21 17:31 Freq: Status: Active Protocol: Document 01/03/22 15:16 DCW (Rec: 01/03/22 15:59 DCW [id number]) OP-PT Subjective Patient Comments Patient Comments reports pt seems to be doing well today. PT-OP-D Balance Start: 12/21/21 17:31 Freq: Status: Active Protocol: Document 12/21/21 10:30 DCW (Rec: 12/21/21 17:36 DCW [id number]) OP-PT Balance Assessment Sitting Balance Static Sitting Balance Ability Normal Dynamic Sitting Balance Ability Good Standing Balance Static Standing Balance Ability Fair Dynamic Standing Balance Ability Fair Balance Tests Bajwa Balance Test Bajwa Balance Test Score 28/56 Bajwa Impairment Rating 40 to 59% Impaired (Score 23- 33) Bajwa Balance Assessment Evaluation Sitting to Standing Ability Several Tries w/Hands Unsupported Stance 30 seconds Sitting Unsupported, Feet on Floor Safely- 2 minutes Standing to Sitting Ability Assist, Control w/Hands Transfer Ability Supervision, Verbal Cues Unsupported Stance- Eyes Closed Supervision, 10 seconds Unsupported Stance- Eyes Open Assist to attain, 15 secs Reaching Forward Standing Safely, 5 inches Pick- Up Object From Floor Supervision Look Behind Shoulder - Standing Shifts Weight Unilateral Turning 360 Degrees Supervision/Verbal Cues Unsupported Stance, Alternating Feet on Assist to Prevent Fall Stair Unsupported Tandem Stance Assist to Step-15 seconds Unilateral Leg Stance Unable,assist to not fall Total Score Bajwa Total Score (out of 56 points) 28 Bajwa Impairment Rating 40 to 59% Impaired (Score 23- 33) Estrella Fall Scale Copyright Permission PT-OP-E Functional Tests Start: 12/21/21 17:31 Freq: Status: Active Protocol: Document 12/21/21 10:30 DCW (Rec: 12/21/21 17:36 DCW [id number]) Functional Tests 6 Minute Walk Test Distance 287 Device Used SPC Comments 0.80 ft/sec Timed Up and Go (TUG) Score 49.73 Comments /c SPC TUG Impairment Rating 100% Impaired (Score 20) PT-OP-G Mobility & Gait Start: 12/21/21 17:31 Freq: Status: Active Protocol: Document 12/21/21 10:30 DCW (Rec: 12/21/21 17:56 DCW [id number]) OP Gait Assessment Gait Gait Assistance Required: Standby Assistance Distance (Feet) 287 Able to Maintain Weight Bearing Status Yes During Gait Assistive Devices Assistive Device Gait Belt,Straight Cane Orthotic/Prosthetic Devices or Brace: Yes Gait Deviations General Gait Pattern Ataxic,Decreased Stride Length ,Decreased Feet Clearance, Flexed Trunk,Lateral Trunk Lean,Step-to Gait Factors Limiting Gait Function Factors Limiting Gait Function Abnormal Tonal Influences, Decreased Activity Tolerance, Decreased Strength,Limited Range of Motion,Poor Balance, Poor Safety Awareness Comments Gait Comments Pt ambulates with a step-to gait pattern, keeps his right arm in a flexed, guarded position, slow meenakshi, left foot internally rotated PT-OP-M Strength Start: 12/21/21 17:31 Freq: Status: Active Protocol: Document 12/21/21 10:30 DCW (Rec: 12/21/21 17:51 DCW [id number]) Hip Strength Hip Manual Muscle Testing Right Flexion (L2) 2 Poor Extension (S1) 2+ Poor+ Abduction 2- Poor- Adduction 3 Fair External Rotation 2 Poor Internal Rotation 2 Poor Left Flexion (L2) 4+ Good+ Extension (S1) 4- Good- Abduction 5 Normal Adduction 4+ Good+ External Rotation 4 Good Internal Rotation 4 Good Knee Strength Knee Manual Muscle Testing Right Flexion (S2) 2+ Poor+ Extension (L3) 3+ Fair+ Left Flexion (S2) 5 Normal Extension (L3) 5 Normal Ankle/Foot Strength Ankle and Foot Manual Muscle Testing Right Dorsiflexion (L4) 4 Good Plantarflexion (S1) 4 Good PT-OP-Q Treatments Start: 12/21/21 17:31 Freq: Status: Active Protocol: Document 01/03/22 15:16 DCW (Rec: 01/03/22 15:59 DCW [id number]) Cardio Equipment Recumbent Elliptical (Biodex) Duration (Minutes) 5 Resistance 6 Seat Position 9 Gym Equipment Shuttle Recovery Unilateral Squats Resistance 37# Shuttle Recovery Platform Stable Reps/Time x15 bilaterally Bilateral Squats Details Ball between knees Resistance 75# Shuttle Recovery Platform Stable Reps/Time x15 Shuttle Balance red clips Details Red Comments Wide NATE, narrowed incrementally. Staggered. Required CGA. Therapeutic Exercises Sitting Exercises 1 Sitting Exercise Name Hamstring curls Side bilateral Resistance Lv 2 T-band Gait Training Gait Activity Walking around Obstacles Description Hurdles Device Used // bars Level of Assistance CGA Comments Fwd, Side-stepping gait Description 2 point pattern Device Used LBQC, gait belt Level of Assistance CGA Distance/Duration 190 Treatment Focus 2 point pattern Comments Verbal and tactile cues for arm swing, metronome at 60 bpm for pacing, verbal cues for increased left step PT-OP-T Assessment and Plan Start: 12/21/21 17:31 Freq: Status: Active Protocol: Document 01/03/22 15:16 DCW (Rec: 01/03/22 15:59 DCW [id number]) Physical Therapy Assessment Impairments Impairments Activity Tolerance,Balance, Functional Activities, Functional Mobility,Gait,Soft Tissue Mobility,Strength, Transfers Other Concerns Fall Risk High Goals Three Impairment Pt in high falls-risk category Short Term Goal (STG) Pt to improve 6MWT distance by at least 180' to 467' STG Duration 02/18/22 Liner Inserter Goal (LTG) Pt to increase Bajwa score by at least 7 points to 35/56 to demonstrate a decrease in his falls risk LTG Duration 03/20/22 Two Impairment Pt exhibits R LE MMT measured between 2-/5 to 3+/5 Liner Inserter Goal (LTG) Pt to improve R LE MMT in all planes to at least 3/5 LTG Duration 03/20/22 One Impairment Pt does not participate in an appropriate home exercise program Short Term Goal (STG) Pt to be compliant with an appropriate HEP STG Duration 02/18/22 Assessment Summary Assessment Pt tolerated treatment well today, no rest breaks, still requires significant verbal cues to increase step length Physical Therapy Plan Frequency and Duration Frequency of Treatment 2x/Week Duration of Treatment Three months Plan of Care Start Date 12/21/21 Plan of Care End Date 03/20/22 Therapeutic Interventions Therapeutic Interventions Aquatic Therapy,Balance Training,Gait Training,Home Exercise Program,Joint Mobilizations,Manual Therapy, Neuromuscular Re-education, Patient/Caregiver Education, Self-Care/Home Management,Soft Tissue Mobilization, Therapeutic Activities, Therapeutic Exercises Next Visit Focus/Plan Next Note Type Treatment Note Next Visit Plan LE strengthening, gait training, balance challenges
--- NOTE | 2022-01-05 13:45 | PT.OTN ---
Current Diagnoses Hemiplegia and hemiparesis following cerebral infarction affecting right dominant side (01/05/22) Ataxic gait (01/05/22) Other abnormalities of gait and mobility (01/05/22) Weakness (01/05/22) Personal history of transient ischemic attack (TIA), and cerebral infarction without residual deficits (01/05/22) History of falling (01/05/22) Physical Therapy Treatment Note PT-OP-A Visit Information Start: 12/21/21 17:31 Freq: Status: Active Protocol: Document 01/05/22 13:03 SP (Rec: 01/05/22 13:49 SP [id number]) Out-Patient Physical Therapy Visit Information Visit Information Visit Type Treatment Note Visit Note Grandson (GS-POWER BUILDER DEVELOPER) and grand daughterinlaw drove pt to appt today (head nod), agreeable to them attending to observe HEP for carryover at home. GS stated will print HOs at home , didn't need today. Visit Start Time 13:03 Visit Stop Time 13:45 Total Visit Minutes 42 Visit Number 5 Number of POWER BUILDER DEVELOPER Visits 1 PT-OP-B Current Condition Start: 12/21/21 17:31 Freq: Status: Active Protocol: Document 12/21/21 10:30 DCW (Rec: 12/22/21 08:50 DCW [id number]) Current Condition History of Current Condition Onset Date 2013 Current Complaints Decreased strength, stamina, near falls History of Current Condition Pt is a 66 year old male very well known to this clinic who comes in to skilled PT today with a recent decline in functional mobility, strength, activity tolerance, and balance. Pt had suffered a CVA in 2013, and has been seen multiple times at this clinic since that time to improve balance and activity tolerance . At baseline, pt has fairly significant right hemiparesis and is almost entirely non- verbal. 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 Pt's notes that pt has been experiencing some problems with his lab values, especially a decrease in sodium and iron. also notes that previously, pt would enjoy going out around the town, but now he just prefers to stay home and only moves around from his chair to the bathroom and back. During prior rounds of PT, it has been difficult to convince Sukh to participate in his HEP, however his notes that their son-in-law recently became a POWER BUILDER DEVELOPER, so they are hopeful that he will be able to help direct a more comprehensive HEP. Treatment Goals Patient/Caregiver Goals Decrease burden of care, decrease falls risk, improve activity tolerance PT-OP-C Subjective Start: 12/21/21 17:31 Freq: Status: Active Protocol: Document 01/05/22 13:03 SP (Rec: 01/05/22 13:49 SP [id number]) OP-PT Subjective Patient Comments Patient Comments Hernando stated pt doing well, pt shook head STS when asked if anything need to report. PT-OP-D Balance Start: 12/21/21 17:31 Freq: Status: Active Protocol: Document 12/21/21 10:30 DCW (Rec: 12/21/21 17:36 DCW [id number]) OP-PT Balance Assessment Sitting Balance Static Sitting Balance Ability Normal Dynamic Sitting Balance Ability Good Standing Balance Static Standing Balance Ability Fair Dynamic Standing Balance Ability Fair Balance Tests Bajwa Balance Test Bajwa Balance Test Score 28/56 Bajwa Impairment Rating 40 to 59% Impaired (Score 23- 33) Bajwa Balance Assessment Evaluation Sitting to Standing Ability Several Tries w/Hands Unsupported Stance 30 seconds Sitting Unsupported, Feet on Floor Safely- 2 minutes Standing to Sitting Ability Assist, Control w/Hands Transfer Ability Supervision, Verbal Cues Unsupported Stance- Eyes Closed Supervision, 10 seconds Unsupported Stance- Eyes Open Assist to attain, 15 secs Reaching Forward Standing Safely, 5 inches Pick- Up Object From Floor Supervision Look Behind Shoulder - Standing Shifts Weight Unilateral Turning 360 Degrees Supervision/Verbal Cues Unsupported Stance, Alternating Feet on Assist to Prevent Fall Stair Unsupported Tandem Stance Assist to Step-15 seconds Unilateral Leg Stance Unable,assist to not fall Total Score Bajwa Total Score (out of 56 points) 28 Bajwa Impairment Rating 40 to 59% Impaired (Score 23- 33) Estrella Fall Scale Copyright Permission PT-OP-E Functional Tests Start: 12/21/21 17:31 Freq: Status: Active Protocol: Document 12/21/21 10:30 DCW (Rec: 12/21/21 17:36 DCW [id number]) Functional Tests 6 Minute Walk Test Distance 287 Device Used SPC Comments 0.80 ft/sec Timed Up and Go (TUG) Score 49.73 Comments /c SPC TUG Impairment Rating 100% Impaired (Score 20) PT-OP-G Mobility & Gait Start: 12/21/21 17:31 Freq: Status: Active Protocol: Document 12/21/21 10:30 DCW (Rec: 12/21/21 17:56 DCW [id number]) OP Gait Assessment Gait Gait Assistance Required: Standby Assistance Distance (Feet) 287 Able to Maintain Weight Bearing Status Yes During Gait Assistive Devices Assistive Device Gait Belt,Straight Cane Orthotic/Prosthetic Devices or Brace: Yes Gait Deviations General Gait Pattern Ataxic,Decreased Stride Length ,Decreased Feet Clearance, Flexed Trunk,Lateral Trunk Lean,Step-to Gait Factors Limiting Gait Function Factors Limiting Gait Function Abnormal Tonal Influences, Decreased Activity Tolerance, Decreased Strength,Limited Range of Motion,Poor Balance, Poor Safety Awareness Comments Gait Comments Pt ambulates with a step-to gait pattern, keeps his right arm in a flexed, guarded position, slow meenakshi, left foot internally rotated PT-OP-M Strength Start: 12/21/21 17:31 Freq: Status: Active Protocol: Document 12/21/21 10:30 DCW (Rec: 12/21/21 17:51 DCW [id number]) Hip Strength Hip Manual Muscle Testing Right Flexion (L2) 2 Poor Extension (S1) 2+ Poor+ Abduction 2- Poor- Adduction 3 Fair External Rotation 2 Poor Internal Rotation 2 Poor Left Flexion (L2) 4+ Good+ Extension (S1) 4- Good- Abduction 5 Normal Adduction 4+ Good+ External Rotation 4 Good Internal Rotation 4 Good Knee Strength Knee Manual Muscle Testing Right Flexion (S2) 2+ Poor+ Extension (L3) 3+ Fair+ Left Flexion (S2) 5 Normal Extension (L3) 5 Normal Ankle/Foot Strength Ankle and Foot Manual Muscle Testing Right Dorsiflexion (L4) 4 Good Plantarflexion (S1) 4 Good PT-OP-Q Treatments Start: 12/21/21 17:31 Freq: Status: Active Protocol: Document 01/05/22 13:03 SP (Rec: 01/05/22 13:49 SP [id number]) Cardio Equipment Recumbent Elliptical (GutCheck) Duration (Minutes) 5 Resistance 6>4 Seat Position 9 Other RUE/ BLE, 352 total steps, 35 RPMs Therapeutic Exercises Sitting Exercises 2 Sitting Exercise Name LAQ Side bilateral Resistance 5# LLE, RLE AROM extension AAROM back to start flexion Comments contract quad ext 5 sec then HS AAROM 1 Sitting Exercise Name Hamstring curls Side bilateral Resistance Lv 2 T-band Standing Exercises 1 Standing Exercise Name Toe-taps receiprocal Side bilateral Resistance AROM Equipment Used 6 step, L HR Reps/Minutes x10 Comments CGA Other Exercises 1 Other Exercise Name Sit<->Stand Resistance CG- Min A Equipment Used intial ascend 1 UE, rest no UE Reps/Minutes 39s (took time reposition feet ) Comments CGA PT-OP-T Assessment and Plan Start: 12/21/21 17:31 Freq: Status: Active Protocol: Document 01/05/22 13:03 SP (Rec: 01/05/22 13:49 SP [id number]) Physical Therapy Assessment Goals Three Impairment Pt in high falls-risk category Short Term Goal (STG) Pt to improve 6MWT distance by at least 180' to 467' STG Duration 02/18/22 Half-Way Goal (LTG) Pt to increase Bajwa score by at least 7 points to 35/56 to demonstrate a decrease in his falls risk LTG Duration 03/20/22 Two Impairment Pt exhibits R LE MMT measured between 2-/5 to 3+/5 Half-Way Goal (LTG) Pt to improve R LE MMT in all planes to at least 3/5 LTG Duration 03/20/22 One Impairment Pt does not participate in an appropriate home exercise program Short Term Goal (STG) Pt to be compliant with an approrpiate HEP STG Duration 02/18/22 Assessment Summary Assessment Tx focused on HEP with pt in agreement to allow grandson and grandson in law to assist with HEP carryover at home. Pt required AAROM RLE knee flexion return, improved HS facilitation AAROM post quad isometric in 80deg of flexion. Improved with stability RLE during alternating step taps using L HR. Physical Therapy Plan Frequency and Duration Frequency of Treatment 2x/Week Duration of Treatment Three months Plan of Care Start Date 12/21/21 Plan of Care End Date 03/20/22 Therapeutic Interventions Therapeutic Interventions Aquatic Therapy,Balance Training,Gait Training,Home Exercise Program,Joint Mobilizations,Manual Therapy, Neuromuscular Re-education, Patient/Caregiver Education, Self-Care/Home Management,Soft Tissue Mobilization, Therapeutic Activities, Therapeutic Exercises Next Visit Focus/Plan Next Note Type Treatment Note Next Visit Plan Continue functional strengthening : LE strengthening, gait training, balance challenges
--- NOTE | 2022-01-16 11:15 | PT.OTN ---
Current Diagnoses Hemiplegia and hemiparesis following cerebral infarction affecting right dominant side (01/16/22) Ataxic gait (01/16/22) Other abnormalities of gait and mobility (01/16/22) Weakness (01/16/22) Personal history of transient ischemic attack (TIA), and cerebral infarction without residual deficits (01/16/22) History of falling (01/16/22) Physical Therapy Treatment Note PT-OP-A Visit Information Start: 12/21/21 17:31 Freq: Status: Active Protocol: Document 01/16/22 10:31 SP (Rec: 01/16/22 11:23 SP [id number]) Out-Patient Physical Therapy Visit Information Visit Information Visit Type Treatment Note Visit Start Time 10:31 Visit Stop Time 11:15 Total Visit Minutes 44 Visit Number 6 Number of RELATIONSHIP ASSOC Visits 2 Evaluation Information Evaluation Date 12/21/21 PT-OP-B Current Condition Start: 12/21/21 17:31 Freq: Status: Active Protocol: Document 12/21/21 10:30 DCW (Rec: 12/22/21 08:50 DCW [id number]) Current Condition History of Current Condition Onset Date 2013 Current Complaints Decreased strength, stamina, near falls History of Current Condition Pt is a 66 year old male very well known to this clinic who comes in to skilled PT today with a recent decline in functional mobility, strength, activity tolerance, and balance. Pt had suffered a CVA in 2013, and has been seen multiple times at this clinic since that time to improve balance and activity tolerance . At baseline, pt has fairly significant right hemiparesis and is almost entirely non- verbal. 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 Pt's notes that pt has been experiencing some problems with his lab values, especially a decrease in sodium and iron. also notes that previously, pt would enjoy going out around the town, but now he just prefers to stay home and only moves around from his chair to the bathroom and back. During prior rounds of PT, it has been difficult to convince Sukh to participate in his HEP, however his notes that their son-in-law recently became a RELATIONSHIP ASSOC, so they are hopeful that he will be able to help direct a more comprehensive HEP. Treatment Goals Patient/Caregiver Goals Decrease burden of care, decrease falls risk, improve activity tolerance PT-OP-C Subjective Start: 12/21/21 17:31 Freq: Status: Active Protocol: Document 01/16/22 10:31 SP (Rec: 01/16/22 11:23 SP [id number]) OP-PT Subjective Patient Comments Patient Comments Pt shook head no when asked any concerns or changes. PT-OP-D Balance Start: 12/21/21 17:31 Freq: Status: Active Protocol: Document 12/21/21 10:30 DCW (Rec: 12/21/21 17:36 DCW [id number]) OP-PT Balance Assessment Sitting Balance Static Sitting Balance Ability Normal Dynamic Sitting Balance Ability Good Standing Balance Static Standing Balance Ability Fair Dynamic Standing Balance Ability Fair Balance Tests Bajwa Balance Test Bajwa Balance Test Score 28/56 Bajwa Impairment Rating 40 to 59% Impaired (Score 23- 33) Bajwa Balance Assessment Evaluation Sitting to Standing Ability Several Tries w/Hands Unsupported Stance 30 seconds Sitting Unsupported, Feet on Floor Safely- 2 minutes Standing to Sitting Ability Assist, Control w/Hands Transfer Ability Supervision, Verbal Cues Unsupported Stance- Eyes Closed Supervision, 10 seconds Unsupported Stance- Eyes Open Assist to attain, 15 secs Reaching Forward Standing Safely, 5 inches Pick- Up Object From Floor Supervision Look Behind Shoulder - Standing Shifts Weight Unilateral Turning 360 Degrees Supervision/Verbal Cues Unsupported Stance, Alternating Feet on Assist to Prevent Fall Stair Unsupported Tandem Stance Assist to Step-15 seconds Unilateral Leg Stance Unable,assist to not fall Total Score Bajwa Total Score (out of 56 points) 28 Bajwa Impairment Rating 40 to 59% Impaired (Score 23- 33) Estrella Fall Scale Copyright Permission PT-OP-E Functional Tests Start: 12/21/21 17:31 Freq: Status: Active Protocol: Document 12/21/21 10:30 DCW (Rec: 12/21/21 17:36 DCW [id number]) Functional Tests 6 Minute Walk Test Distance 287 Device Used SPC Comments 0.80 ft/sec Timed Up and Go (TUG) Score 49.73 Comments /c SPC TUG Impairment Rating 100% Impaired (Score 20) PT-OP-G Mobility & Gait Start: 12/21/21 17:31 Freq: Status: Active Protocol: Document 12/21/21 10:30 DCW (Rec: 12/21/21 17:56 DCW [id number]) OP Gait Assessment Gait Gait Assistance Required: Standby Assistance Distance (Feet) 287 Able to Maintain Weight Bearing Status Yes During Gait Assistive Devices Assistive Device Gait Belt,Straight Cane Orthotic/Prosthetic Devices or Brace: Yes Gait Deviations General Gait Pattern Ataxic,Decreased Stride Length ,Decreased Feet Clearance, Flexed Trunk,Lateral Trunk Lean,Step-to Gait Factors Limiting Gait Function Factors Limiting Gait Function Abnormal Tonal Influences, Decreased Activity Tolerance, Decreased Strength,Limited Range of Motion,Poor Balance, Poor Safety Awareness Comments Gait Comments Pt ambulates with a step-to gait pattern, keeps his right arm in a flexed, guarded position, slow meenakshi, left foot internally rotated PT-OP-M Strength Start: 12/21/21 17:31 Freq: Status: Active Protocol: Document 12/21/21 10:30 DCW (Rec: 12/21/21 17:51 DCW [id number]) Hip Strength Hip Manual Muscle Testing Right Flexion (L2) 2 Poor Extension (S1) 2+ Poor+ Abduction 2- Poor- Adduction 3 Fair External Rotation 2 Poor Internal Rotation 2 Poor Left Flexion (L2) 4+ Good+ Extension (S1) 4- Good- Abduction 5 Normal Adduction 4+ Good+ External Rotation 4 Good Internal Rotation 4 Good Knee Strength Knee Manual Muscle Testing Right Flexion (S2) 2+ Poor+ Extension (L3) 3+ Fair+ Left Flexion (S2) 5 Normal Extension (L3) 5 Normal Ankle/Foot Strength Ankle and Foot Manual Muscle Testing Right Dorsiflexion (L4) 4 Good Plantarflexion (S1) 4 Good PT-OP-Q Treatments Start: 12/21/21 17:31 Freq: Status: Active Protocol: Document 01/16/22 10:31 SP (Rec: 01/16/22 11:23 SP [id number]) Gym Equipment Shuttle Recovery Unilateral Squats Details B Resistance 37# Shuttle Recovery Platform Stable Reps/Time x15 Bilateral Squats Details Ball between knees Resistance 75# Shuttle Recovery Platform Stable Reps/Time x15 Shuttle Balance red clips Details Red Comments Wide NATE, narrowed incrementally. Staggered. Required CGA. Therapeutic Exercises Other Exercises 1 Other Exercise Name Sit<->Stand Resistance CG- Min A Equipment Used intial ascend 1 UE ascend, no UE descend Reps/Minutes 32s (01/16/22), improved from 39s last tx Comments CGA Gait Training Gait Activity Walking around Obstacles Description Hurdles Device Used LBQC Level of Assistance CGA Surface firm Distance/Duration 20 ft x2 laps (4 hurdles) Treatment Focus foot clearance, obstacle navigation Comments 1.Fwd, Side-stepping 2. step to gait over Min A for stability STUNNER ANIMAL/ LUE,challenged RLE hip flexion, caught x1. gait Description 3 point pattern w/ metronome Device Used LBQC, gait belt Level of Assistance CGA Distance/Duration 170 Treatment Focus 3 point pattern today Comments Verbal and tactile cues for arm swing, metronome at 60-63 bpm for pacing, verbal cues for increased left step Neuro Re-Education Treatment Balance Activities Tandem Details stagger stance narrrow base Equipment // bars Reps/Duration EO Comments RLE forward: 10s, 27 sec LLE forward: 30s x2- cued wt WB into RLE PT-OP-T Assessment and Plan Start: 12/21/21 17:31 Freq: Status: Active Protocol: Document 01/16/22 10:31 SP (Rec: 01/16/22 11:23 SP [id number]) Physical Therapy Assessment Goals Three Impairment Pt in high falls-risk category Short Term Goal (STG) Pt to improve 6MWT distance by at least 180' to 467' STG Duration 02/18/22 Prison Goal (LTG) Pt to increase Bajwa score by at least 7 points to 35/56 to demonstrate a decrease in his falls risk LTG Duration 03/20/22 Two Impairment Pt exhibits R LE MMT measured between 2-/5 to 3+/5 Crystalizer Operator Goal (LTG) Pt to improve R LE MMT in all planes to at least 3/5 LTG Duration 03/20/22 One Impairment Pt does not participate in an appropriate home exercise program Short Term Goal (STG) Pt to be compliant with an approrpiate HEP STG Duration 02/18/22 Assessment Summary Assessment Biodex unavailable this tx. Pt good effort LE extension during shuttle recovery, able to progress marlen stepping to allow foot carryover for gait , STUNNER ANIMAL on R for trunk stabilty support LOB x1 due to R foot caught marlen Min A for recovery. Cues for increase step length during gait but improved feet // w/ LBQC end of tx. Physical Therapy Plan Frequency and Duration Frequency of Treatment 2x/Week Duration of Treatment Three months Plan of Care Start Date 12/21/21 Plan of Care End Date 03/20/22 Therapeutic Interventions Therapeutic Interventions Aquatic Therapy,Balance Training,Gait Training,Home Exercise Program,Joint Mobilizations,Manual Therapy, Neuromuscular Re-education, Patient/Caregiver Education, Self-Care/Home Management,Soft Tissue Mobilization, Therapeutic Activities, Therapeutic Exercises Next Visit Focus/Plan Next Note Type Treatment Note Next Visit Plan Continue shuttle balance, pt pointed to erika, maybe future appt. POC: Continue functional strengthening : LE strengthening, gait training, balance challenges
--- NOTE | 2022-01-19 13:45 | PT.OTN ---
Addendum entered and electronically signed by Lupe Beckett PTA 01/19/22 15:47: PN 10th visit in 3 visits, is scheduled with VISUALIZER, consider PN next visit. Original Note: Current Diagnoses Hemiplegia and hemiparesis following cerebral infarction affecting right dominant side (01/19/22) Ataxic gait (01/19/22) Other abnormalities of gait and mobility (01/19/22) Weakness (01/19/22) Personal history of transient ischemic attack (TIA), and cerebral infarction without residual deficits (01/19/22) History of falling (01/19/22) Physical Therapy Treatment Note PT-OP-A Visit Information Start: 12/21/21 17:31 Freq: Status: Active Protocol: Document 01/19/22 13:03 SP (Rec: 01/19/22 13:49 SP [id number]) Out-Patient Physical Therapy Visit Information Visit Information Visit Type Treatment Note Visit Start Time 13:03 Visit Stop Time 13:45 Total Visit Minutes 42 Visit Number 7 Number of VISUALIZER Visits 3 Evaluation Information Evaluation Date 12/21/21 PT-OP-B Current Condition Start: 12/21/21 17:31 Freq: Status: Active Protocol: Document 12/21/21 10:30 DCW (Rec: 12/22/21 08:50 DCW [id number]) Current Condition History of Current Condition Onset Date 2013 Current Complaints Decreased strength, stamina, near falls History of Current Condition Pt is a 66 year old male very well known to this clinic who comes in to skilled PT today with a recent decline in functional mobility, strength, activity tolerance, and balance. Pt had suffered a CVA in 2013, and has been seen multiple times at this clinic since that time to improve balance and activity tolerance . At baseline, pt has fairly significant right hemiparesis and is almost entirely non- verbal. 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 Pt's notes that pt has been experiencing some problems with his lab values, especially a decrease in sodium and iron. also notes that previously, pt would enjoy going out around the town, but now he just prefers to stay home and only moves around from his chair to the bathroom and back. During prior rounds of PT, it has been difficult to convince Sukh to participate in his HEP, however his notes that their son-in-law recently became a VISUALIZER, so they are hopeful that he will be able to help direct a more comprehensive HEP. Treatment Goals Patient/Caregiver Goals Decrease burden of care, decrease falls risk, improve activity tolerance PT-OP-C Subjective Start: 12/21/21 17:31 Freq: Status: Active Protocol: Document 01/19/22 13:03 SP (Rec: 01/19/22 13:49 SP [id number]) OP-PT Subjective Patient Comments Patient Comments Pt shook head no concerns today. PT-OP-D Balance Start: 12/21/21 17:31 Freq: Status: Active Protocol: Document 12/21/21 10:30 DCW (Rec: 12/21/21 17:36 DCW [id number]) OP-PT Balance Assessment Sitting Balance Static Sitting Balance Ability Normal Dynamic Sitting Balance Ability Good Standing Balance Static Standing Balance Ability Fair Dynamic Standing Balance Ability Fair Balance Tests Bajwa Balance Test Bajwa Balance Test Score 28/56 Bajwa Impairment Rating 40 to 59% Impaired (Score 23- 33) Bajwa Balance Assessment Evaluation Sitting to Standing Ability Several Tries w/Hands Unsupported Stance 30 seconds Sitting Unsupported, Feet on Floor Safely- 2 minutes Standing to Sitting Ability Assist, Control w/Hands Transfer Ability Supervision, Verbal Cues Unsupported Stance- Eyes Closed Supervision, 10 seconds Unsupported Stance- Eyes Open Assist to attain, 15 secs Reaching Forward Standing Safely, 5 inches Pick- Up Object From Floor Supervision Look Behind Shoulder - Standing Shifts Weight Unilateral Turning 360 Degrees Supervision/Verbal Cues Unsupported Stance, Alternating Feet on Assist to Prevent Fall Stair Unsupported Tandem Stance Assist to Step-15 seconds Unilateral Leg Stance Unable,assist to not fall Total Score Bajwa Total Score (out of 56 points) 28 Bajwa Impairment Rating 40 to 59% Impaired (Score 23- 33) Estrella Fall Scale Copyright Permission PT-OP-E Functional Tests Start: 12/21/21 17:31 Freq: Status: Active Protocol: Document 01/19/22 13:03 SP (Rec: 01/19/22 13:49 SP [id number]) Functional Tests 6 Minute Walk Test Distance 217ft Device Used LBQC Comments 3pt gait, cued feet forward // , tall posture PT-OP-G Mobility & Gait Start: 12/21/21 17:31 Freq: Status: Active Protocol: Document 12/21/21 10:30 DCW (Rec: 02/17/22 17:56 DCW [id number]) OP Gait Assessment Gait Gait Assistance Required: Standby Assistance Distance (Feet) 287 Able to Maintain Weight Bearing Status Yes During Gait Assistive Devices Assistive Device Gait Belt,Straight Cane Orthotic/Prosthetic Devices or Brace: Yes Gait Deviations General Gait Pattern Ataxic,Decreased Stride Length ,Decreased Feet Clearance, Flexed Trunk,Lateral Trunk Lean,Step-to Gait Factors Limiting Gait Function Factors Limiting Gait Function Abnormal Tonal Influences, Decreased Activity Tolerance, Decreased Strength,Limited Range of Motion,Poor Balance, Poor Safety Awareness Comments Gait Comments Pt ambulates with a step-to gait pattern, keeps his right arm in a flexed, guarded position, slow meenakshi, left foot internally rotated PT-OP-M Strength Start: 12/21/21 17:31 Freq: Status: Active Protocol: Document 12/21/21 10:30 DCW (Rec: 12/21/21 17:51 DCW [id number]) Hip Strength Hip Manual Muscle Testing Right Flexion (L2) 2 Poor Extension (S1) 2+ Poor+ Abduction 2- Poor- Adduction 3 Fair External Rotation 2 Poor Internal Rotation 2 Poor Left Flexion (L2) 4+ Good+ Extension (S1) 4- Good- Abduction 5 Normal Adduction 4+ Good+ External Rotation 4 Good Internal Rotation 4 Good Knee Strength Knee Manual Muscle Testing Right Flexion (S2) 2+ Poor+ Extension (L3) 3+ Fair+ Left Flexion (S2) 5 Normal Extension (L3) 5 Normal Ankle/Foot Strength Ankle and Foot Manual Muscle Testing Right Dorsiflexion (L4) 4 Good Plantarflexion (S1) 4 Good PT-OP-Q Treatments Start: 12/21/21 17:31 Freq: Status: Active Protocol: Document 01/19/22 13:03 SP (Rec: 01/19/22 13:49 SP [id number]) Cardio Equipment Recumbent Elliptical (Hot Dot) Duration (Minutes) 5 Resistance 4 Seat Position see 9 Other RUE/ BLE, 361 total steps, 35 RPMs Therapeutic Exercises Standing Exercises step up/ down Standing Exercise Name 1. step (strengthening) 2.blue foam (neuro) Side bilateral Resistance AROM (L HR> LBQC step taps only) Equipment Used 6 step, L HR, GB, therapist LE anterior L knee for stability asc/desc lead Reps/Minutes x5 reps lead each LE Comments cued tall posture, LUE elbow straight ascend/ desc 1 Standing Exercise Name Toe-taps receiprocal (neuro) Side bilateral Resistance AROM Equipment Used 6 step, LBQC Reps/Minutes x5 Comments CGA Gait Training Gait Activity 6MWT Device Used QC Level of Assistance CGA Surface Flat, even, though change from carpet to anna Distance/Duration 217 Treatment Focus Gait speed Comments Pt presents with IR of left leg and toes that makes gait slower as he tries to walk straight and without course deviation. Cued //feet with taller posture. PT-OP-T Assessment and Plan Start: 12/21/21 17:31 Freq: Status: Active Protocol: Document 01/19/22 13:03 SP (Rec: 01/19/22 13:49 SP [id number]) Physical Therapy Assessment Goals Three Impairment Pt in high falls-risk category Short Term Goal (STG) Pt to improve 6MWT distance by at least 180' to 467' 01/19/22: baseline assessment: 217 ft in 6 min w/ LBQC. STG Duration 02/18/22 Mcc Goal (LTG) Pt to increase Bajwa score by at least 7 points to 35/56 to demonstrate a decrease in his falls risk LTG Duration 03/20/22 Two Impairment Pt exhibits R LE MMT measured between 2-/5 to 3+/5 Mcc Goal (LTG) Pt to improve R LE MMT in all planes to at least 3/5 LTG Duration 03/20/22 One Impairment Pt does not participate in an appropriate home exercise program Short Term Goal (STG) Pt to be compliant with an approrpiate HEP STG Duration 02/18/22 Progress Towards Goals Progress Towards Goals Progressing Toward Goals Assessment Summary Assessment Pt improved in confidence during step taps with ability to use LBQC for support vs rail and on/ off uneven surface, cued wt shift forward keep toes down for stability. Pt able to progress stepping up 6 step with RLE therapist support anterior knee for safety improved stability with cues for tall posture and LUE fully extending on rail for alignment support during LE transitioning. Physical Therapy Plan Frequency and Duration Frequency of Treatment 2x/Week Duration of Treatment Three months Plan of Care Start Date 12/21/21 Plan of Care End Date 03/20/22 Therapeutic Interventions Therapeutic Interventions Aquatic Therapy,Balance Training,Gait Training,Home Exercise Program,Joint Mobilizations,Manual Therapy, Neuromuscular Re-education, Patient/Caregiver Education, Self-Care/Home Management,Soft Tissue Mobilization, Therapeutic Activities, Therapeutic Exercises Next Visit Focus/Plan Next Note Type Treatment Note Next Visit Plan Continue shuttle balance, pt pointed to erika, maybe future appt. POC: Continue functional strengthening : LE strengthening, gait training, balance challenges
--- NOTE | 2022-01-23 15:43 | PT.OTN ---
Current Diagnoses Hemiplegia and hemiparesis following cerebral infarction affecting right dominant side (01/23/22) Ataxic gait (01/23/22) Other abnormalities of gait and mobility (01/23/22) Weakness (01/23/22) Personal history of transient ischemic attack (TIA), and cerebral infarction without residual deficits (01/23/22) History of falling (01/23/22) Physical Therapy Treatment Note PT-OP-A Visit Information Start: 12/21/21 17:31 Freq: Status: Active Protocol: Document 01/23/22 13:52 SAK (Rec: 01/23/22 15:43 SAK [id number]) Out-Patient Physical Therapy Visit Information Visit Information Visit Start Time 13:45 Visit Stop Time 14:25 Total Visit Minutes 40 Visit Number 8 Number of CONCESSION STAND ATTENDANT Visits 0 Evaluation Information Evaluation Date 12/21/21 PT-OP-B Current Condition Start: 12/21/21 17:31 Freq: Status: Active Protocol: Document 12/21/21 10:30 DCW (Rec: 12/22/21 08:50 DCW [id number]) Current Condition History of Current Condition Onset Date 2013 Current Complaints Decreased strength, stamina, near falls History of Current Condition Pt is a 66 year old male very well known to this clinic who comes in to skilled PT today with a recent decline in functional mobility, strength, activity tolerance, and balance. Pt had suffered a CVA in 2013, and has been seen multiple times at this clinic since that time to improve balance and activity tolerance . At baseline, pt has fairly significant right hemiparesis and is almost entirely non- verbal. 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 Pt's notes that pt has been experiencing some problems with his lab values, especially a decrease in sodium and iron. also notes that previously, pt would enjoy going out around the town, but now he just prefers to stay home and only moves around from his chair to the bathroom and back. During prior rounds of PT, it has been difficult to convince Sukh to participate in his HEP, however his notes that their son-in-law recently became a CONCESSION STAND ATTENDANT, so they are hopeful that he will be able to help direct a more comprehensive HEP. Treatment Goals Patient/Caregiver Goals Decrease burden of care, decrease falls risk, improve activity tolerance PT-OP-C Subjective Start: 12/21/21 17:31 Freq: Status: Active Protocol: Document 01/23/22 13:52 SAK (Rec: 01/23/22 15:43 SAK [id number]) OP-PT Subjective Patient Comments Patient Comments Patient denied anythink new via head shake. When asked about doing HEP also shook his head, pointing to right knee, then to entire right side. PT-OP-D Balance Start: 12/21/21 17:31 Freq: Status: Active Protocol: Document 12/21/21 10:30 DCW (Rec: 12/21/21 17:36 DCW [id number]) OP-PT Balance Assessment Sitting Balance Static Sitting Balance Ability Normal Dynamic Sitting Balance Ability Good Standing Balance Static Standing Balance Ability Fair Dynamic Standing Balance Ability Fair Balance Tests Bajwa Balance Test Bajwa Balance Test Score 28/56 Bajwa Impairment Rating 40 to 59% Impaired (Score 23- 33) Bajwa Balance Assessment Evaluation Sitting to Standing Ability Several Tries w/Hands Unsupported Stance 30 seconds Sitting Unsupported, Feet on Floor Safely- 2 minutes Standing to Sitting Ability Assist, Control w/Hands Transfer Ability Supervision, Verbal Cues Unsupported Stance- Eyes Closed Supervision, 10 seconds Unsupported Stance- Eyes Open Assist to attain, 15 secs Reaching Forward Standing Safely, 5 inches Pick- Up Object From Floor Supervision Look Behind Shoulder - Standing Shifts Weight Unilateral Turning 360 Degrees Supervision/Verbal Cues Unsupported Stance, Alternating Feet on Assist to Prevent Fall Stair Unsupported Tandem Stance Assist to Step-15 seconds Unilateral Leg Stance Unable,assist to not fall Total Score Bajwa Total Score (out of 56 points) 28 Bajwa Impairment Rating 40 to 59% Impaired (Score 23- 33) Estrella Fall Scale Copyright Permission PT-OP-E Functional Tests Start: 12/21/21 17:31 Freq: Status: Active Protocol: Document 01/19/22 13:03 SP (Rec: 01/19/22 13:49 SP [id number]) Functional Tests 6 Minute Walk Test Distance 217ft Device Used LBQC Comments 3pt gait, cued feet forward // , tall posture PT-OP-G Mobility & Gait Start: 12/21/21 17:31 Freq: Status: Active Protocol: Document 12/21/21 10:30 DCW (Rec: 12/21/21 17:56 DCW [id number]) OP Gait Assessment Gait Gait Assistance Required: Standby Assistance Distance (Feet) 287 Able to Maintain Weight Bearing Status Yes During Gait Assistive Devices Assistive Device Gait Belt,Straight Cane Orthotic/Prosthetic Devices or Brace: Yes Gait Deviations General Gait Pattern Ataxic,Decreased Stride Length ,Decreased Feet Clearance, Flexed Trunk,Lateral Trunk Lean,Step-to Gait Factors Limiting Gait Function Factors Limiting Gait Function Abnormal Tonal Influences, Decreased Activity Tolerance, Decreased Strength,Limited Range of Motion,Poor Balance, Poor Safety Awareness Comments Gait Comments Pt ambulates with a step-to gait pattern, keeps his right arm in a flexed, guarded position, slow meenakshi, left foot internally rotated PT-OP-M Strength Start: 12/21/21 17:31 Freq: Status: Active Protocol: Document 12/21/21 10:30 DCW (Rec: 12/21/21 17:51 DCW [id number]) Hip Strength Hip Manual Muscle Testing Right Flexion (L2) 2 Poor Extension (S1) 2+ Poor+ Abduction 2- Poor- Adduction 3 Fair External Rotation 2 Poor Internal Rotation 2 Poor Left Flexion (L2) 4+ Good+ Extension (S1) 4- Good- Abduction 5 Normal Adduction 4+ Good+ External Rotation 4 Good Internal Rotation 4 Good Knee Strength Knee Manual Muscle Testing Right Flexion (S2) 2+ Poor+ Extension (L3) 3+ Fair+ Left Flexion (S2) 5 Normal Extension (L3) 5 Normal Ankle/Foot Strength Ankle and Foot Manual Muscle Testing Right Dorsiflexion (L4) 4 Good Plantarflexion (S1) 4 Good PT-OP-Q Treatments Start: 12/21/21 17:31 Freq: Status: Active Protocol: Document 01/23/22 13:52 [facility] (Rec: 01/23/22 14:37 [facility] [id number]) Cardio Equipment Recumbent Elliptical (Biodex) Duration (Minutes) 5 Resistance 4 Seat Position see 9 Other RUE/ BLE Gym Equipment Shuttle Balance red clips Details balance fwd/bck, side Comments Wide NATE, narrowed incrementally. Staggered. Required CGA. Therapeutic Activity Therapeutic Activity 1 Name Bajwa balance assessment, MMT Reps/Minutes 25 min Gait Training Gait Activity gait Description 3 point pattern w/ metronome Device Used LBQC, gait belt Level of Assistance CGA Distance/Duration 50 Treatment Focus 3 point pattern today Comments Verbal and tactile cues for arm swing, metronome at 60-63 bpm for pacing, verbal cues for increased left step. Short distance due to patient needing to use restroom. PT-OP-T Assessment and Plan Start: 12/21/21 17:31 Freq: Status: Active Protocol: Document 01/23/22 13:52 [facility] (Rec: 01/23/22 14:37 [facility] [id number]) Physical Therapy Assessment Goals Three Impairment Pt in high falls-risk category Short Term Goal (STG) Pt to improve 6MWT distance by at least 180' to 467' 01/19/22: baseline assessment: 217 ft in 6 min w/ LBQC. STG Duration 02/18/22 Snf Goal (LTG) Pt to increase Bajwa score by at least 7 points to 35/56 to demonstrate a decrease in his falls risk 01/23/22: Bajwa Balance Score 24 /56 today LTG Duration 03/20/22 Two Impairment Pt exhibits R LE MMT measured between 2-/5 to 3+/5 Clinical Field Specialist Goal (LTG) Pt to improve R LE MMT in all planes to at least 3/5 01/23/22: no significant change noted with MMT today LTG Duration 03/20/22 One Impairment Pt does not participate in an appropriate home exercise program Short Term Goal (STG) Pt to be compliant with an approrpiate HEP 01/23/22: patient indicated not doing exercises at home, though also had quizzical look on face when asked about exercises. Has previously been issued written HEP. STG Duration 02/18/22 Assessment Summary Assessment No change in MMT or balance testing, but gait improved as noted last session with progress noted in gait on uneven surfaces and increased distance with 6 min walk test. Would benefit from further PT to help him fully achieve his physical therapy goals to improve his strength and safety with mobility. Physical Therapy Plan Frequency and Duration Frequency of Treatment 2x/Week Duration of Treatment Three months Plan of Care Start Date 12/21/21 Plan of Care End Date 03/20/22 Therapeutic Interventions Therapeutic Interventions Aquatic Therapy,Balance Training,Gait Training,Home Exercise Program,Joint Mobilizations,Manual Therapy, Neuromuscular Re-education, Patient/Caregiver Education, Self-Care/Home Management,Soft Tissue Mobilization, Therapeutic Activities, Therapeutic Exercises Next Visit Focus/Plan Next Note Type Treatment Note Next Visit Plan Continue shuttle balance, pt pointed to trampoline, maybe future appt. POC: Continue functional strengthening : LE strengthening, gait training, balance challenges
--- NOTE | 2022-01-26 11:20 | PT.OTN ---
Current Diagnoses Hemiplegia and hemiparesis following cerebral infarction affecting right dominant side (01/26/22) Ataxic gait (01/26/22) Other abnormalities of gait and mobility (01/26/22) Weakness (01/26/22) Personal history of transient ischemic attack (TIA), and cerebral infarction without residual deficits (01/26/22) History of falling (01/26/22) Physical Therapy Treatment Note PT-OP-A Visit Information Start: 12/21/21 17:31 Freq: Status: Active Protocol: Document 01/26/22 10:37 SP (Rec: 01/26/22 11:36 SP [id number]) Out-Patient Physical Therapy Visit Information Visit Information Visit Type Treatment Note Visit Note Progress assessed by PT last , 8th tx. Visit Start Time 10:37 Visit Stop Time 11:20 Total Visit Minutes 43 Visit Number 9 Number of EVP Visits 1 Evaluation Information Evaluation Date 12/21/21 PT-OP-B Current Condition Start: 12/21/21 17:31 Freq: Status: Active Protocol: Document 12/21/21 10:30 DCW (Rec: 12/22/21 08:50 DCW [id number]) Current Condition History of Current Condition Onset Date 2013 Current Complaints Decreased strength, stamina, near falls History of Current Condition Pt is a 66 year old male very well known to this clinic who comes in to skilled PT today with a recent decline in functional mobility, strength, activity tolerance, and balance. Pt had suffered a CVA in 2013, and has been seen multiple times at this clinic since that time to improve balance and activity tolerance . At baseline, pt has fairly significant right hemiparesis and is almost entirely non- verbal. 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 Pt's notes that pt has been experiencing some problems with his lab values, especially a decrease in sodium and iron. also notes that previously, pt would enjoy going out around the town, but now he just prefers to stay home and only moves around from his chair to the bathroom and back. During prior rounds of PT, it has been difficult to convince Sukh to participate in his HEP, however his notes that their son-in-law recently became a EVP, so they are hopeful that he will be able to help direct a more comprehensive HEP. Treatment Goals Patient/Caregiver Goals Decrease burden of care, decrease falls risk, improve activity tolerance PT-OP-C Subjective Start: 12/21/21 17:31 Freq: Status: Active Protocol: Document 01/26/22 10:37 SP (Rec: 01/26/22 11:36 SP [id number]) OP-PT Subjective Patient Comments Patient Comments Pt denied any concerns, head shake indicating no. PT-OP-D Balance Start: 12/21/21 17:31 Freq: Status: Active Protocol: Document 12/21/21 10:30 DCW (Rec: 12/21/21 17:36 DCW [id number]) OP-PT Balance Assessment Sitting Balance Static Sitting Balance Ability Normal Dynamic Sitting Balance Ability Good Standing Balance Static Standing Balance Ability Fair Dynamic Standing Balance Ability Fair Balance Tests Bajwa Balance Test Bajwa Balance Test Score 28/56 Bajwa Impairment Rating 40 to 59% Impaired (Score 23- 33) Bajwa Balance Assessment Evaluation Sitting to Standing Ability Several Tries w/Hands Unsupported Stance 30 seconds Sitting Unsupported, Feet on Floor Safely- 2 minutes Standing to Sitting Ability Assist, Control w/Hands Transfer Ability Supervision, Verbal Cues Unsupported Stance- Eyes Closed Supervision, 10 seconds Unsupported Stance- Eyes Open Assist to attain, 15 secs Reaching Forward Standing Safely, 5 inches Pick- Up Object From Floor Supervision Look Behind Shoulder - Standing Shifts Weight Unilateral Turning 360 Degrees Supervision/Verbal Cues Unsupported Stance, Alternating Feet on Assist to Prevent Fall Stair Unsupported Tandem Stance Assist to Step-15 seconds Unilateral Leg Stance Unable,assist to not fall Total Score Bajwa Total Score (out of 56 points) 28 Bajwa Impairment Rating 40 to 59% Impaired (Score 23- 33) Estrella Fall Scale Copyright Permission PT-OP-E Functional Tests Start: 12/21/21 17:31 Freq: Status: Active Protocol: Document 01/19/22 13:03 SP (Rec: 01/19/22 13:49 SP [id number]) Functional Tests 6 Minute Walk Test Distance 217ft Device Used LBQC Comments 3pt gait, cued feet forward // , tall posture PT-OP-G Mobility & Gait Start: 12/21/21 17:31 Freq: Status: Active Protocol: Document 12/21/21 10:30 DCW (Rec: 12/21/21 17:56 DCW [id number]) OP Gait Assessment Gait Gait Assistance Required: Standby Assistance Distance (Feet) 287 Able to Maintain Weight Bearing Status Yes During Gait Assistive Devices Assistive Device Gait Belt,Straight Cane Orthotic/Prosthetic Devices or Brace: Yes Gait Deviations General Gait Pattern Ataxic,Decreased Stride Length ,Decreased Feet Clearance, Flexed Trunk,Lateral Trunk Lean,Step-to Gait Factors Limiting Gait Function Factors Limiting Gait Function Abnormal Tonal Influences, Decreased Activity Tolerance, Decreased Strength,Limited Range of Motion,Poor Balance, Poor Safety Awareness Comments Gait Comments Pt ambulates with a step-to gait pattern, keeps his right arm in a flexed, guarded position, slow meenakshi, left foot internally rotated PT-OP-M Strength Start: 12/21/21 17:31 Freq: Status: Active Protocol: Document 12/21/21 10:30 DCW (Rec: 12/21/21 17:51 DCW [id number]) Hip Strength Hip Manual Muscle Testing Right Flexion (L2) 2 Poor Extension (S1) 2+ Poor+ Abduction 2- Poor- Adduction 3 Fair External Rotation 2 Poor Internal Rotation 2 Poor Left Flexion (L2) 4+ Good+ Extension (S1) 4- Good- Abduction 5 Normal Adduction 4+ Good+ External Rotation 4 Good Internal Rotation 4 Good Knee Strength Knee Manual Muscle Testing Right Flexion (S2) 2+ Poor+ Extension (L3) 3+ Fair+ Left Flexion (S2) 5 Normal Extension (L3) 5 Normal Ankle/Foot Strength Ankle and Foot Manual Muscle Testing Right Dorsiflexion (L4) 4 Good Plantarflexion (S1) 4 Good PT-OP-Q Treatments Start: 12/21/21 17:31 Freq: Status: Active Protocol: Document 01/26/22 10:37 SP (Rec: 01/26/22 11:36 SP [id number]) Cardio Equipment Recumbent Elliptical ([employer]) Duration (Minutes) 5 Resistance 4>3 Seat Position see 10 Other LUE/ BLE 303 total steps Therapeutic Exercises Sitting Exercises 2 Sitting Exercise Name LAQ- HEP review Side bilateral Resistance AROM Reps/Minutes 5 sec hold LLE, AROM RLE support LUE lift femur Comments contract quad ext 5 sec then HS AAROM 1 Sitting Exercise Name Hamstring curls- HEP review Side bilateral Resistance Lv 2 T-band LLE, AROM RLE Reps/Minutes x5 reps each review HEP Comments observed ther ex. Other Exercises 1 Other Exercise Name Sit<->Stand Resistance SBA Equipment Used no UE descend, LUE on lap ascend Reps/Minutes x5 reps Comments close sBA, cued hip hinge all way canir Neuro Re-Education Treatment Balance Activities hurdles Details forward Equipment x6 Reps/Duration 1 lap Comments cCG- 10%A w/ LBQC in LUE step to patterning lead RLE, R foot caught tried trail w/ LLE forward, unable to complete and balance so finished RLE leading each marlen. Self-Care/Home Management Treatment Education Patient Education Home Exercise Program Caregiver Education Provided caregiver () instruction HEP to support functional strengthening at home: LAQ, HS w/ TB LLE/ AROM RLE and STS cues provided for full stand and slow descent hip hinge, decreased 1/2 plop into chair at bottom. Pt's verbalized her or paid caregiver can help him with but probably not daily. Gave copy hand outs for set up/ recall. PT-OP-T Assessment and Plan Start: 12/21/21 17:31 Freq: Status: Active Protocol: Document 01/26/22 10:37 SP (Rec: 01/26/22 11:36 SP [id number]) Physical Therapy Assessment Goals Three Impairment Pt in high falls-risk category Short Term Goal (STG) Pt to improve 6MWT distance by at least 180' to 467' 01/19/22: baseline assessment: 217 ft in 6 min w/ LBQC. STG Duration 02/18/22 Half-Way Goal (LTG) Pt to increase Bajwa score by at least 7 points to 35/56 to demonstrate a decrease in his falls risk 01/23/22: Bajwa Balance Score 24 /56 today LTG Duration 03/20/22 Two Impairment Pt exhibits R LE MMT measured between 2-/5 to 3+/5 Half-Way Goal (LTG) Pt to improve R LE MMT in all planes to at least 3/5 01/23/22: no significant change noted with MMT today LTG Duration 03/20/22 One Impairment Pt does not participate in an appropriate home exercise program Short Term Goal (STG) Pt to be compliant with an approrpiate HEP 01/23/22: patient indicated not doing exercises at home, though also had quizzical look on face when asked about exercises. Has previously been issued written HEP. STG Duration 02/18/22 Assessment Summary Assessment Pt improved eccentric descent to sit in chair post cues hip hinge. Able to complete R knee flexion AROM with LUE support assist foot clearance seated in chair today. IMproved RLE hip/ knee flexion over marlen decrease lateral trunk lean L, QC support on L. Physical Therapy Plan Frequency and Duration Frequency of Treatment 2x/Week Duration of Treatment Three months Plan of Care Start Date 12/21/21 Plan of Care End Date 03/20/22 Therapeutic Interventions Therapeutic Interventions Aquatic Therapy,Balance Training,Gait Training,Home Exercise Program,Joint Mobilizations,Manual Therapy, Neuromuscular Re-education, Patient/Caregiver Education, Self-Care/Home Management,Soft Tissue Mobilization, Therapeutic Activities, Therapeutic Exercises Next Visit Focus/Plan Next Note Type Treatment Note Next Visit Plan Continue shuttle balance, pt pointed to tramnatanine, maybe future appt. POC: Continue functional strengthening : LE strengthening, gait training, balance challenges
--- NOTE | 2022-01-30 13:45 | PT.OTN ---
Current Diagnoses Hemiplegia and hemiparesis following cerebral infarction affecting right dominant side (01/30/22) Ataxic gait (01/30/22) Other abnormalities of gait and mobility (01/30/22) Weakness (01/30/22) Personal history of transient ischemic attack (TIA), and cerebral infarction without residual deficits (01/30/22) History of falling (01/30/22) Physical Therapy Treatment Note PT-OP-A Visit Information Start: 12/21/21 17:31 Freq: Status: Active Protocol: Document 01/30/22 13:05 SP (Rec: 01/30/22 13:48 SP [id number]) Out-Patient Physical Therapy Visit Information Visit Information Visit Type Treatment Note Visit Start Time 13:05 Visit Stop Time 13:45 Total Visit Minutes 40 Visit Number 10 Number of CHIROPRACTIC DOCTOR Visits 2 Evaluation Information Evaluation Date 12/21/21 PT-OP-B Current Condition Start: 12/21/21 17:31 Freq: Status: Active Protocol: Document 12/21/21 10:30 DCW (Rec: 12/22/21 08:50 DCW [id number]) Current Condition History of Current Condition Onset Date 2013 Current Complaints Decreased strength, stamina, near falls History of Current Condition Pt is a 66 year old male very well known to this clinic who comes in to skilled PT today with a recent decline in functional mobility, strength, activity tolerance, and balance. Pt had suffered a CVA in 2013, and has been seen multiple times at this clinic since that time to improve balance and activity tolerance . At baseline, pt has fairly significant right hemiparesis and is almost entirely non- verbal. 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 Pt's notes that pt has been experiencing some problems with his lab values, especially a decrease in sodium and iron. also notes that previously, pt would enjoy going out around the town, but now he just prefers to stay home and only moves around from his chair to the bathroom and back. During prior rounds of PT, it has been difficult to convince Sukh to participate in his HEP, however his notes that their son-in-law recently became a CHIROPRACTIC DOCTOR, so they are hopeful that he will be able to help direct a more comprehensive HEP. Treatment Goals Patient/Caregiver Goals Decrease burden of care, decrease falls risk, improve activity tolerance PT-OP-C Subjective Start: 12/21/21 17:31 Freq: Status: Active Protocol: Document 01/30/22 13:05 SP (Rec: 01/30/22 13:48 SP [id number]) OP-PT Subjective Patient Comments Patient Comments Pt shook head no when asked if any concerns/ changes over the weekend. PT-OP-D Balance Start: 12/21/21 17:31 Freq: Status: Active Protocol: Document 12/21/21 10:30 DCW (Rec: 12/21/21 17:36 DCW [id number]) OP-PT Balance Assessment Sitting Balance Static Sitting Balance Ability Normal Dynamic Sitting Balance Ability Good Standing Balance Static Standing Balance Ability Fair Dynamic Standing Balance Ability Fair Balance Tests Bajwa Balance Test Bajwa Balance Test Score 28/56 Bajwa Impairment Rating 40 to 59% Impaired (Score 23- 33) Bajwa Balance Assessment Evaluation Sitting to Standing Ability Several Tries w/Hands Unsupported Stance 30 seconds Sitting Unsupported, Feet on Floor Safely- 2 minutes Standing to Sitting Ability Assist, Control w/Hands Transfer Ability Supervision, Verbal Cues Unsupported Stance- Eyes Closed Supervision, 10 seconds Unsupported Stance- Eyes Open Assist to attain, 15 secs Reaching Forward Standing Safely, 5 inches Pick- Up Object From Floor Supervision Look Behind Shoulder - Standing Shifts Weight Unilateral Turning 360 Degrees Supervision/Verbal Cues Unsupported Stance, Alternating Feet on Assist to Prevent Fall Stair Unsupported Tandem Stance Assist to Step-15 seconds Unilateral Leg Stance Unable,assist to not fall Total Score Bajwa Total Score (out of 56 points) 28 Bajwa Impairment Rating 40 to 59% Impaired (Score 23- 33) Estrella Fall Scale Copyright Permission PT-OP-E Functional Tests Start: 12/21/21 17:31 Freq: Status: Active Protocol: Document 01/19/22 13:03 SP (Rec: 01/19/22 13:49 SP [id number]) Functional Tests 6 Minute Walk Test Distance 217ft Device Used LBQC Comments 3pt gait, cued feet forward // , tall posture PT-OP-G Mobility & Gait Start: 12/21/21 17:31 Freq: Status: Active Protocol: Document 12/21/21 10:30 DCW (Rec: 12/21/21 17:56 DCW [id number]) OP Gait Assessment Gait Gait Assistance Required: Standby Assistance Distance (Feet) 287 Able to Maintain Weight Bearing Status Yes During Gait Assistive Devices Assistive Device Gait Belt,Straight Cane Orthotic/Prosthetic Devices or Brace: Yes Gait Deviations General Gait Pattern Ataxic,Decreased Stride Length ,Decreased Feet Clearance, Flexed Trunk,Lateral Trunk Lean,Step-to Gait Factors Limiting Gait Function Factors Limiting Gait Function Abnormal Tonal Influences, Decreased Activity Tolerance, Decreased Strength,Limited Range of Motion,Poor Balance, Poor Safety Awareness Comments Gait Comments Pt ambulates with a step-to gait pattern, keeps his right arm in a flexed, guarded position, slow meenakshi, left foot internally rotated PT-OP-M Strength Start: 12/21/21 17:31 Freq: Status: Active Protocol: Document 12/21/21 10:30 DCW (Rec: 12/21/21 17:51 DCW [id number]) Hip Strength Hip Manual Muscle Testing Right Flexion (L2) 2 Poor Extension (S1) 2+ Poor+ Abduction 2- Poor- Adduction 3 Fair External Rotation 2 Poor Internal Rotation 2 Poor Left Flexion (L2) 4+ Good+ Extension (S1) 4- Good- Abduction 5 Normal Adduction 4+ Good+ External Rotation 4 Good Internal Rotation 4 Good Knee Strength Knee Manual Muscle Testing Right Flexion (S2) 2+ Poor+ Extension (L3) 3+ Fair+ Left Flexion (S2) 5 Normal Extension (L3) 5 Normal Ankle/Foot Strength Ankle and Foot Manual Muscle Testing Right Dorsiflexion (L4) 4 Good Plantarflexion (S1) 4 Good PT-OP-Q Treatments Start: 12/21/21 17:31 Freq: Status: Active Protocol: Document 01/30/22 13:05 SP (Rec: 01/30/22 13:48 SP [id number]) Cardio Equipment Recumbent Elliptical (BiodEdictive) Duration (Minutes) 6 Resistance 4 Seat Position see 9 Other LUE/ BLE total steps 459 Gym Equipment Shuttle Balance red clips Details balance fwd/bck Comments Wide NATE: head turn and holds CG- 10%A,unable EC. NBOS: head turn CG- Min A Staggered: Min- Mod A unsteady blocked LEs to stability as step off Gait Training Gait Activity Stair Mgt Description 3 step ascend forward/descend backward Device Used LHR Level of Assistance CGA Treatment Focus balance and glut strengthening Comments Cued for completing 4 steps ascend L HR then turn around, step to descend Min A L HR, therapist supported anterior R knee prevent buckling during LLE advancement and light contact support guide RLE descend placeemnt positioning gait Description 3 point pattern w/ metronome Device Used LBQC, gait belt Level of Assistance CGA Surface firm, carpet and tile. Distance/Duration 193 Treatment Focus 3 point pattern today, progress 2 pt gait Comments Verbal and tactile cues for arm swing, feet // and decrease LUE WB on QC, improved decrease lean to L and more upright posture but unable patterning 2 pt gait this tx. Neuro Re-Education Treatment Balance Activities uneven surface Details step up/ downs Surface carballo cushion Equipment L HR Comments CG- 5%A, cues for sequeincing and quad fac on R during LLE repositioning. PT-OP-T Assessment and Plan Start: 12/21/21 17:31 Freq: Status: Active Protocol: Document 01/30/22 13:05 SP (Rec: 01/30/22 13:48 SP [id number]) Physical Therapy Assessment Goals Three Impairment Pt in high falls-risk category Short Term Goal (STG) Pt to improve 6MWT distance by at least 180' to 467' 01/19/22: baseline assessment: 217 ft in 6 min w/ LBQC. STG Duration 02/18/22 Chcf Goal (LTG) Pt to increase Bajwa score by at least 7 points to 35/56 to demonstrate a decrease in his falls risk 01/23/22: Bajwa Balance Score 24 /56 today LTG Duration 03/20/22 Two Impairment Pt exhibits R LE MMT measured between 2-/5 to 3+/5 Rag Sorter Goal (LTG) Pt to improve R LE MMT in all planes to at least 3/5 01/23/22: no significant change noted with MMT today LTG Duration 03/20/22 One Impairment Pt does not participate in an appropriate home exercise program Short Term Goal (STG) Pt to be compliant with an approrpiate HEP 01/23/22: patient indicated not doing exercises at home, though also had quizzical look on face when asked about exercises. Has previously been issued written HEP. STG Duration 02/18/22 Assessment Summary Assessment Pt increased distance gait, improved upright alignment, less wB into LUE on LBQC beginning of tx, was able to descend stairs with support anterior R knee midstance phase and guidence RLE positioning step to patterning . Pt was able to incorporate head turns during shuttle balance, was able to hold WBOS for up to 10 sec CG-10%A, cues for even BLE WB. He became unsteady with stagger on shuttle balance requiring increased support, one of last activities. Physical Therapy Plan Frequency and Duration Frequency of Treatment 2x/Week Duration of Treatment Three months Plan of Care Start Date 12/21/21 Plan of Care End Date 03/20/22 Therapeutic Interventions Therapeutic Interventions Aquatic Therapy,Balance Training,Gait Training,Home Exercise Program,Joint Mobilizations,Manual Therapy, Neuromuscular Re-education, Patient/Caregiver Education, Self-Care/Home Management,Soft Tissue Mobilization, Therapeutic Activities, Therapeutic Exercises Next Visit Focus/Plan Next Note Type Treatment Note Next Visit Plan Continue warm up bike, shuttle balance and balance activities. POC: Continue functional strengthening : LE strengthening, gait training, balance challenges
--- NOTE | 2022-02-05 11:38 | PT-OP ANOTE ---
PT's appt rescheduled to TH, requires PN.
--- NOTE | 2022-02-08 17:37 | PT.OTN ---
Current Diagnoses Hemiplegia and hemiparesis following cerebral infarction affecting right dominant side (02/08/22) Ataxic gait (02/08/22) Other abnormalities of gait and mobility (02/08/22) Weakness (02/08/22) Personal history of transient ischemic attack (TIA), and cerebral infarction without residual deficits (02/08/22) History of falling (02/08/22) Physical Therapy Treatment Note PT-OP-A Visit Information Start: 12/21/21 17:31 Freq: Status: Active Protocol: Document 02/08/22 16:45 DCW (Rec: 02/08/22 17:37 DCW [id number]) Out-Patient Physical Therapy Visit Information Visit Information Visit Type Treatment Note Visit Start Time 16:45 Visit Stop Time 17:30 Total Visit Minutes 45 Visit Number 11 Number of ART SALES CONSULTANT Visits 0 Evaluation Information Evaluation Date 12/21/21 PT-OP-B Current Condition Start: 12/21/21 17:31 Freq: Status: Active Protocol: Document 12/21/21 10:30 DCW (Rec: 12/22/21 08:50 DCW [id number]) Current Condition History of Current Condition Onset Date 2013 Current Complaints Decreased strength, stamina, near falls History of Current Condition Pt is a 66 year old male very well known to this clinic who comes in to skilled PT today with a recent decline in functional mobility, strength, activity tolerance, and balance. Pt had suffered a CVA in 2013, and has been seen multiple times at this clinic since that time to improve balance and activity tolerance . At baseline, pt has fairly significant right hemiparesis and is almost entirely non- verbal. 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 Pt's notes that pt has been experiencing some problems with his lab values, especially a decrease in sodium and iron. also notes that previously, pt would enjoy going out around the town, but now he just prefers to stay home and only moves around from his chair to the bathroom and back. During prior rounds of PT, it has been difficult to convince Sukh to participate in his HEP, however his notes that their son-in-law recently became a ART SALES CONSULTANT, so they are hopeful that he will be able to help direct a more comprehensive HEP. Treatment Goals Patient/Caregiver Goals Decrease burden of care, decrease falls risk, improve activity tolerance PT-OP-C Subjective Start: 12/21/21 17:31 Freq: Status: Active Protocol: Document 02/08/22 16:45 DCW (Rec: 02/08/22 17:37 DCW [id number]) OP-PT Subjective Patient Comments Patient Comments Per pt's , his electrolytes might be a little off today, he seems to be cramping up. PT-OP-D Balance Start: 12/21/21 17:31 Freq: Status: Active Protocol: Document 12/21/21 10:30 DCW (Rec: 12/21/21 17:36 DCW [id number]) OP-PT Balance Assessment Sitting Balance Static Sitting Balance Ability Normal Dynamic Sitting Balance Ability Good Standing Balance Static Standing Balance Ability Fair Dynamic Standing Balance Ability Fair Balance Tests Bajwa Balance Test Bajwa Balance Test Score 28/56 Bajwa Impairment Rating 40 to 59% Impaired (Score 23- 33) Bajwa Balance Assessment Evaluation Sitting to Standing Ability Several Tries w/Hands Unsupported Stance 30 seconds Sitting Unsupported, Feet on Floor Safely- 2 minutes Standing to Sitting Ability Assist, Control w/Hands Transfer Ability Supervision, Verbal Cues Unsupported Stance- Eyes Closed Supervision, 10 seconds Unsupported Stance- Eyes Open Assist to attain, 15 secs Reaching Forward Standing Safely, 5 inches Pick- Up Object From Floor Supervision Look Behind Shoulder - Standing Shifts Weight Unilateral Turning 360 Degrees Supervision/Verbal Cues Unsupported Stance, Alternating Feet on Assist to Prevent Fall Stair Unsupported Tandem Stance Assist to Step-15 seconds Unilateral Leg Stance Unable,assist to not fall Total Score Bajwa Total Score (out of 56 points) 28 Bajwa Impairment Rating 40 to 59% Impaired (Score 23- 33) Estrella Fall Scale Copyright Permission PT-OP-E Functional Tests Start: 12/21/21 17:31 Freq: Status: Active Protocol: Document 01/19/22 13:03 SP (Rec: 01/19/22 13:49 SP [id number]) Functional Tests 6 Minute Walk Test Distance 217ft Device Used LBQC Comments 3pt gait, cued feet forward // , tall posture PT-OP-G Mobility & Gait Start: 12/21/21 17:31 Freq: Status: Active Protocol: Document 12/21/21 10:30 DCW (Rec: 12/21/21 17:56 DCW [id number]) OP Gait Assessment Gait Gait Assistance Required: Standby Assistance Distance (Feet) 287 Able to Maintain Weight Bearing Status Yes During Gait Assistive Devices Assistive Device Gait Belt,Straight Cane Orthotic/Prosthetic Devices or Brace: Yes Gait Deviations General Gait Pattern Ataxic,Decreased Stride Length ,Decreased Feet Clearance, Flexed Trunk,Lateral Trunk Lean,Step-to Gait Factors Limiting Gait Function Factors Limiting Gait Function Abnormal Tonal Influences, Decreased Activity Tolerance, Decreased Strength,Limited Range of Motion,Poor Balance, Poor Safety Awareness Comments Gait Comments Pt ambulates with a step-to gait pattern, keeps his right arm in a flexed, guarded position, slow meenakshi, left foot internally rotated PT-OP-M Strength Start: 12/21/21 17:31 Freq: Status: Active Protocol: Document 12/21/21 10:30 DCW (Rec: 12/21/21 17:51 DCW [id number]) Hip Strength Hip Manual Muscle Testing Right Flexion (L2) 2 Poor Extension (S1) 2+ Poor+ Abduction 2- Poor- Adduction 3 Fair External Rotation 2 Poor Internal Rotation 2 Poor Left Flexion (L2) 4+ Good+ Extension (S1) 4- Good- Abduction 5 Normal Adduction 4+ Good+ External Rotation 4 Good Internal Rotation 4 Good Knee Strength Knee Manual Muscle Testing Right Flexion (S2) 2+ Poor+ Extension (L3) 3+ Fair+ Left Flexion (S2) 5 Normal Extension (L3) 5 Normal Ankle/Foot Strength Ankle and Foot Manual Muscle Testing Right Dorsiflexion (L4) 4 Good Plantarflexion (S1) 4 Good PT-OP-Q Treatments Start: 12/21/21 17:31 Freq: Status: Active Protocol: Document 02/08/22 16:45 DCW (Rec: 02/08/22 17:37 DCW [id number]) Cardio Equipment Recumbent Elliptical ([employer]) Duration (Minutes) 5 Resistance 4 Seat Position see 9 Other LUE/ BLE total steps 380 Gym Equipment Shuttle Balance red clips Details balance fwd/bck Comments Wide NATE: head turn and holds CG- 10%A,unable EC. NBOS: head turn CG- Min A Staggered: Min- Mod A unsteady blocked LEs to stability as step off Therapeutic Exercises Other Exercises 2 Other Exercise Name Resisted ambulation: Fwd, side -stepping Resistance Green 1 Other Exercise Name Sit<->Stand Resistance SBA Equipment Used no UE descend, LUE on lap ascend Reps/Minutes x5 reps Comments close sBA, cued hip hinge all way canir Neuro Re-Education Treatment Balance Activities hurdles Details forward Equipment x6 Reps/Duration 1 lap Comments cCG- 10%A in // bars, step to patterning lead RLE Tandem Details Tandem stance Equipment // bars Reps/Duration EO Comments X1 viewing uneven surface Details step up/ downs Surface carballo cushion on 2 risers Equipment L HR Comments CG- 5%A, cues for sequeincing and quad fac on R during LLE repositioning. PT-OP-T Assessment and Plan Start: 12/21/21 17:31 Freq: Status: Active Protocol: Document 02/08/22 16:45 DCW (Rec: 02/08/22 17:37 DCW [id number]) Physical Therapy Assessment Goals Three Impairment Pt in high falls-risk category Short Term Goal (STG) Pt to improve 6MWT distance by at least 180' to 467' 01/19/22: baseline assessment: 217 ft in 6 min w/ LBQC. STG Duration 02/18/22 Mcfp Goal (LTG) Pt to increase Bajwa score by at least 7 points to 35/56 to demonstrate a decrease in his falls risk 01/23/22: Bajwa Balance Score 24 /56 today LTG Duration 03/20/22 Two Impairment Pt exhibits R LE MMT measured between 2-/5 to 3+/5 Mcfp Goal (LTG) Pt to improve R LE MMT in all planes to at least 3/5 01/23/22: no significant change noted with MMT today LTG Duration 03/20/22 One Impairment Pt does not participate in an appropriate home exercise program Short Term Goal (STG) Pt to be compliant with an approrpiate HEP 01/23/22: patient indicated not doing exercises at home, though also had quizzical look on face when asked about exercises. Has previously been issued written HEP. STG Duration 02/18/22 Assessment Summary Assessment Pt didn't have significantly more difficulty with his activities today, despite worries about recent cramping. Pt showing some improvement with quality of sit<->stand. Physical Therapy Plan Frequency and Duration Frequency of Treatment 2x/Week Duration of Treatment Three months Plan of Care Start Date 12/21/21 Plan of Care End Date 03/20/22 Therapeutic Interventions Therapeutic Interventions Aquatic Therapy,Balance Training,Gait Training,Home Exercise Program,Joint Mobilizations,Manual Therapy, Neuromuscular Re-education, Patient/Caregiver Education, Self-Care/Home Management,Soft Tissue Mobilization, Therapeutic Activities, Therapeutic Exercises Next Visit Focus/Plan Next Note Type Treatment Note Next Visit Plan Continue warm up bike, shuttle balance and balance activities. POC: Continue functional strengthening : LE strengthening, gait training, balance challenges
--- NOTE | 2022-02-09 14:32 | PT.OTN ---
Current Diagnoses Hemiplegia and hemiparesis following cerebral infarction affecting right dominant side (02/09/22) Ataxic gait (02/09/22) Other abnormalities of gait and mobility (02/09/22) Weakness (02/09/22) Personal history of transient ischemic attack (TIA), and cerebral infarction without residual deficits (02/09/22) History of falling (02/09/22) Physical Therapy Treatment Note PT-OP-A Visit Information Start: 12/21/21 17:31 Freq: Status: Active Protocol: Document 02/09/22 13:44 SP (Rec: 02/09/22 14:44 SP [id number]) Out-Patient Physical Therapy Visit Information Visit Information Visit Type Treatment Note Visit Start Time 13:44 Visit Stop Time 14:32 Total Visit Minutes 47 Visit Number 12 Number of TRACK REPAIRER Visits 1 Evaluation Information Evaluation Date 12/21/21 PT-OP-B Current Condition Start: 12/21/21 17:31 Freq: Status: Active Protocol: Document 12/21/21 10:30 DCW (Rec: 12/22/21 08:50 DCW [id number]) Current Condition History of Current Condition Onset Date 2013 Current Complaints Decreased strength, stamina, near falls History of Current Condition Pt is a 66 year old male very well known to this clinic who comes in to skilled PT today with a recent decline in functional mobility, strength, activity tolerance, and balance. Pt had suffered a CVA in 2013, and has been seen multiple times at this clinic since that time to improve balance and activity tolerance . At baseline, pt has fairly significant right hemiparesis and is almost entirely non- verbal. 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 Pt's notes that pt has been experiencing some problems with his lab values, especially a decrease in sodium and iron. also notes that previously, pt would enjoy going out around the town, but now he just prefers to stay home and only moves around from his chair to the bathroom and back. During prior rounds of PT, it has been difficult to convince Sukh to participate in his HEP, however his notes that their son-in-law recently became a TRACK REPAIRER, so they are hopeful that he will be able to help direct a more comprehensive HEP. Treatment Goals Patient/Caregiver Goals Decrease burden of care, decrease falls risk, improve activity tolerance PT-OP-C Subjective Start: 12/21/21 17:31 Freq: Status: Active Protocol: Document 02/09/22 13:44 SP (Rec: 02/09/22 14:44 SP [id number]) OP-PT Subjective Patient Comments Patient Comments Pt shook head when asked if anything to report today. PT-OP-D Balance Start: 12/21/21 17:31 Freq: Status: Active Protocol: Document 12/21/21 10:30 DCW (Rec: 12/21/21 17:36 DCW [id number]) OP-PT Balance Assessment Sitting Balance Static Sitting Balance Ability Normal Dynamic Sitting Balance Ability Good Standing Balance Static Standing Balance Ability Fair Dynamic Standing Balance Ability Fair Balance Tests Bajwa Balance Test Bajwa Balance Test Score 28/56 Bajwa Impairment Rating 40 to 59% Impaired (Score 23- 33) Bajwa Balance Assessment Evaluation Sitting to Standing Ability Several Tries w/Hands Unsupported Stance 30 seconds Sitting Unsupported, Feet on Floor Safely- 2 minutes Standing to Sitting Ability Assist, Control w/Hands Transfer Ability Supervision, Verbal Cues Unsupported Stance- Eyes Closed Supervision, 10 seconds Unsupported Stance- Eyes Open Assist to attain, 15 secs Reaching Forward Standing Safely, 5 inches Pick- Up Object From Floor Supervision Look Behind Shoulder - Standing Shifts Weight Unilateral Turning 360 Degrees Supervision/Verbal Cues Unsupported Stance, Alternating Feet on Assist to Prevent Fall Stair Unsupported Tandem Stance Assist to Step-15 seconds Unilateral Leg Stance Unable,assist to not fall Total Score Bajwa Total Score (out of 56 points) 28 Bajwa Impairment Rating 40 to 59% Impaired (Score 23- 33) Estrella Fall Scale Copyright Permission PT-OP-E Functional Tests Start: 12/21/21 17:31 Freq: Status: Active Protocol: Document 02/09/22 13:44 SP (Rec: 02/09/22 14:44 SP [id number]) Functional Tests 6 Minute Walk Test Distance 259 Device Used SBQC Comments 3 pt gait 70-72bpm on metronome maintains speed PT-OP-G Mobility & Gait Start: 12/21/21 17:31 Freq: Status: Active Protocol: Document 12/21/21 10:30 DCW (Rec: 12/21/21 17:56 DCW [id number]) OP Gait Assessment Gait Gait Assistance Required: Standby Assistance Distance (Feet) 287 Able to Maintain Weight Bearing Status Yes During Gait Assistive Devices Assistive Device Gait Belt,Straight Cane Orthotic/Prosthetic Devices or Brace: Yes Gait Deviations General Gait Pattern Ataxic,Decreased Stride Length ,Decreased Feet Clearance, Flexed Trunk,Lateral Trunk Lean,Step-to Gait Factors Limiting Gait Function Factors Limiting Gait Function Abnormal Tonal Influences, Decreased Activity Tolerance, Decreased Strength,Limited Range of Motion,Poor Balance, Poor Safety Awareness Comments Gait Comments Pt ambulates with a step-to gait pattern, keeps his right arm in a flexed, guarded position, slow meenakshi, left foot internally rotated PT-OP-M Strength Start: 12/21/21 17:31 Freq: Status: Active Protocol: Document 12/21/21 10:30 DCW (Rec: 12/21/21 17:51 DCW [id number]) Hip Strength Hip Manual Muscle Testing Right Flexion (L2) 2 Poor Extension (S1) 2+ Poor+ Abduction 2- Poor- Adduction 3 Fair External Rotation 2 Poor Internal Rotation 2 Poor Left Flexion (L2) 4+ Good+ Extension (S1) 4- Good- Abduction 5 Normal Adduction 4+ Good+ External Rotation 4 Good Internal Rotation 4 Good Knee Strength Knee Manual Muscle Testing Right Flexion (S2) 2+ Poor+ Extension (L3) 3+ Fair+ Left Flexion (S2) 5 Normal Extension (L3) 5 Normal Ankle/Foot Strength Ankle and Foot Manual Muscle Testing Right Dorsiflexion (L4) 4 Good Plantarflexion (S1) 4 Good PT-OP-Q Treatments Start: 12/21/21 17:31 Freq: Status: Active Protocol: Document 02/09/22 13:44 SP (Rec: 02/09/22 14:44 SP [id number]) Gym Equipment Shuttle Recovery Unilateral Squats Details B Resistance 50# L x10> 37# x10, 37#> 25# x10 R Shuttle Recovery Platform Stable Reps/Time x15 Bilateral Squats Details Ball between knees Resistance 62# Shuttle Recovery Platform Stable Reps/Time x15 Therapeutic Exercises Standing Exercises step up/ down Standing Exercise Name 1. step (strengthening) 2.blue foam (neuro) Side bilateral Resistance 5# leg wt w/ step, AROM foam Equipment Used 6 step, L HR, GB, therapist LE anterior L knee for stability asc/desc lead Reps/Minutes x5 reps lead each LE step, 3 reps L/1 reps R blue foam w/ LBQC Comments cued tall posture, LUE elbow straight/R quad fac ascend/ desc 1 Standing Exercise Name Toe-taps receiprocal (neuro) Side bilateral Resistance AROM Equipment Used 6 step, L HR today (continue LBQC next tx) Reps/Minutes x5 Comments CGA Gait Training Gait Activity 6MWT Device Used QC Level of Assistance CGA Surface Flat, even, though change from carpet to anna Distance/Duration 259 Treatment Focus Gait speed maintains 70-72 bpm w/ metronome Comments Pt presents with IR of left leg and toes that makes gait slower as he tries to walk straight and without course deviation. Cued //feet with taller posture. PT-OP-T Assessment and Plan Start: 12/21/21 17:31 Freq: Status: Active Protocol: Document 02/09/22 13:44 SP (Rec: 02/09/22 14:44 SP [id number]) Physical Therapy Assessment Goals Three Impairment Pt in high falls-risk category Short Term Goal (STG) Pt to improve 6MWT distance by at least 180' to 467' 01/19/22: baseline assessment: 217 ft in 6 min w/ LBQC. 02/09/22: 259 ft in 6 min w/ SBQC 3 pt gait maintaining 70- 72 bpm w/ metronome. 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 Has previously been issued written HEP. STG Duration 02/18/22 Assessment Summary Assessment Pt improved R quad facilitation and trunk alignment during midstance phase gait leaving post weighted step taps and up/ downs. Physical Therapy Plan Frequency and Duration Frequency of Treatment 2x/Week Duration of Treatment Three months Plan of Care Start Date 12/21/21 Plan of Care End Date 03/20/22 Therapeutic Interventions Therapeutic Interventions Aquatic Therapy,Balance Training,Gait Training,Home Exercise Program,Joint Mobilizations,Manual Therapy, Neuromuscular Re-education, Patient/Caregiver Education, Self-Care/Home Management,Soft Tissue Mobilization, Therapeutic Activities, Therapeutic Exercises Next Visit Focus/Plan Next Note Type Treatment Note Next Visit Plan Continue progress functional strength instanding and challenge balance activities. POC: Continue functional strengthening : LE strengthening, gait training, balance challenges
--- NOTE | 2022-02-13 11:16 | PT.OTN ---
Current Diagnoses Hemiplegia and hemiparesis following cerebral infarction affecting right dominant side (02/13/22) Ataxic gait (02/13/22) Other abnormalities of gait and mobility (02/13/22) Weakness (02/13/22) Personal history of transient ischemic attack (TIA), and cerebral infarction without residual deficits (02/13/22) History of falling (02/13/22) Physical Therapy Treatment Note PT-OP-A Visit Information Start: 12/21/21 17:31 Freq: Status: Active Protocol: Document 02/13/22 10:32 SP (Rec: 02/13/22 11:37 SP [id number]) Out-Patient Physical Therapy Visit Information Visit Information Visit Type Treatment Note Visit Note vitals post gait: BP 130/91HR 106 bpm, 92% on RA, stated nodded when asked if dizzy post sit, also nodded dizzy when asked if dizzy pre gait. Visit Start Time 10:32 Visit Stop Time 11:16 Total Visit Minutes 44 Visit Number 13 Number of AGRICULTURAL COMMODITIES GRADER Visits 2 Evaluation Information Evaluation Date 12/21/21 PT-OP-B Current Condition Start: 12/21/21 17:31 Freq: Status: Active Protocol: Document 12/21/21 10:30 DCW (Rec: 12/22/21 08:50 DCW [id number]) Current Condition History of Current Condition Onset Date 2013 Current Complaints Decreased strength, stamina, near falls History of Current Condition Pt is a 66 year old male very well known to this clinic who comes in to skilled PT today with a recent decline in functional mobility, strength, activity tolerance, and balance. Pt had suffered a CVA in 2013, and has been seen multiple times at this clinic since that time to improve balance and activity tolerance . At baseline, pt has fairly significant right hemiparesis and is almost entirely non- verbal. 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 Pt's notes that pt has been experiencing some problems with his lab values, especially a decrease in sodium and iron. also notes that previously, pt would enjoy going out around the town, but now he just prefers to stay home and only moves around from his chair to the bathroom and back. During prior rounds of PT, it has been difficult to convince Sukh to participate in his HEP, however his notes that their son-in-law recently became a AGRICULTURAL COMMODITIES GRADER, so they are hopeful that he will be able to help direct a more comprehensive HEP. Treatment Goals Patient/Caregiver Goals Decrease burden of care, decrease falls risk, improve activity tolerance PT-OP-C Subjective Start: 12/21/21 17:31 Freq: Status: Active Protocol: Document 02/13/22 10:32 SP (Rec: 02/13/22 11:37 SP [id number]) OP-PT Subjective Patient Comments Patient Comments Pt agreeable nodded yes to 6MWT when arrived to waiting room start tx today. PT-OP-D Balance Start: 12/21/21 17:31 Freq: Status: Active Protocol: Document 12/21/21 10:30 DCW (Rec: 12/21/21 17:36 DCW [id number]) OP-PT Balance Assessment Sitting Balance Static Sitting Balance Ability Normal Dynamic Sitting Balance Ability Good Standing Balance Static Standing Balance Ability Fair Dynamic Standing Balance Ability Fair Balance Tests Bajwa Balance Test Bajwa Balance Test Score 28/56 Bajwa Impairment Rating 40 to 59% Impaired (Score 23- 33) Bajwa Balance Assessment Evaluation Sitting to Standing Ability Several Tries w/Hands Unsupported Stance 30 seconds Sitting Unsupported, Feet on Floor Safely- 2 minutes Standing to Sitting Ability Assist, Control w/Hands Transfer Ability Supervision, Verbal Cues Unsupported Stance- Eyes Closed Supervision, 10 seconds Unsupported Stance- Eyes Open Assist to attain, 15 secs Reaching Forward Standing Safely, 5 inches Pick- Up Object From Floor Supervision Look Behind Shoulder - Standing Shifts Weight Unilateral Turning 360 Degrees Supervision/Verbal Cues Unsupported Stance, Alternating Feet on Assist to Prevent Fall Stair Unsupported Tandem Stance Assist to Step-15 seconds Unilateral Leg Stance Unable,assist to not fall Total Score Bajwa Total Score (out of 56 points) 28 Bajwa Impairment Rating 40 to 59% Impaired (Score 23- 33) Estrella Fall Scale Copyright Permission PT-OP-E Functional Tests Start: 12/21/21 17:31 Freq: Status: Active Protocol: Document 02/09/22 13:44 SP (Rec: 02/09/22 14:44 SP [id number]) Functional Tests 6 Minute Walk Test Distance 259 Device Used SBQC Comments 3 pt gait 70-72bpm on metronome maintains speed PT-OP-G Mobility & Gait Start: 12/21/21 17:31 Freq: Status: Active Protocol: Document 12/21/21 10:30 DCW (Rec: 12/21/21 17:56 DCW [id number]) OP Gait Assessment Gait Gait Assistance Required: Standby Assistance Distance (Feet) 287 Able to Maintain Weight Bearing Status Yes During Gait Assistive Devices Assistive Device Gait Belt,Straight Cane Orthotic/Prosthetic Devices or Brace: Yes Gait Deviations General Gait Pattern Ataxic,Decreased Stride Length ,Decreased Feet Clearance, Flexed Trunk,Lateral Trunk Lean,Step-to Gait Factors Limiting Gait Function Factors Limiting Gait Function Abnormal Tonal Influences, Decreased Activity Tolerance, Decreased Strength,Limited Range of Motion,Poor Balance, Poor Safety Awareness Comments Gait Comments Pt ambulates with a step-to gait pattern, keeps his right arm in a flexed, guarded position, slow meenakshi, left foot internally rotated PT-OP-M Strength Start: 12/21/21 17:31 Freq: Status: Active Protocol: Document 12/21/21 10:30 DCW (Rec: 12/21/21 17:51 DCW [id number]) Hip Strength Hip Manual Muscle Testing Right Flexion (L2) 2 Poor Extension (S1) 2+ Poor+ Abduction 2- Poor- Adduction 3 Fair External Rotation 2 Poor Internal Rotation 2 Poor Left Flexion (L2) 4+ Good+ Extension (S1) 4- Good- Abduction 5 Normal Adduction 4+ Good+ External Rotation 4 Good Internal Rotation 4 Good Knee Strength Knee Manual Muscle Testing Right Flexion (S2) 2+ Poor+ Extension (L3) 3+ Fair+ Left Flexion (S2) 5 Normal Extension (L3) 5 Normal Ankle/Foot Strength Ankle and Foot Manual Muscle Testing Right Dorsiflexion (L4) 4 Good Plantarflexion (S1) 4 Good PT-OP-Q Treatments Start: 12/21/21 17:31 Freq: Status: Active Protocol: Document 02/13/22 10:32 SP (Rec: 02/13/22 11:37 SP [id number]) Therapeutic Exercises Sitting Exercises 1 Sitting Exercise Name Hamstring curls- HEP review Side bilateral Resistance Lv 2 T-band LLE, L1 TB RLE supported post R knee foot off floor Reps/Minutes 1x10 R, x15 and X10 LLE reps each review HEP Comments cued form full ext and back RLE Standing Exercises step up/ down Standing Exercise Name 1. step (strengthening- not 10/25) 2.blue foam (neuro) Side bilateral Resistance AROM Equipment Used GB, L HR, blue foam, attempted QC but unable retro RLE descend so use L HR Reps/Minutes x5 reps each LE lead up/ down Comments cued tall posture, LUE elbow straight/R quad fac ascend/ desc 1 Standing Exercise Name Toe-taps receiprocal (neuro) Side bilateral Resistance AROM Equipment Used 6 step, QC x4 reps, then needed L HR x4 reps) Reps/Minutes x8 Comments CGA- 5%A, cued LUE extension on HR to allow tall posture and RLE foot clear Gait Training Gait Activity 6MWT Description metronome 65bpm today Device Used QC Level of Assistance CGA Surface Flat, even, though change from carpet to anna Distance/Duration 189 Treatment Focus Gait speed maintains 65 bpm w/ metronome Comments Pt presents with IR of left leg and toes that makes gait slower as he tries to walk straight and without course deviation. Cued //feet with taller posture. Decreased endurance and metronome cadance today. required 2 brief stop stand breath rest and reported NEED to sit at end, nodded yes when asked if dizzy. See vitals taken post activity. Stair Mgt Description ascend forward/descend Device Used LHR Level of Assistance CGA ascend, Min A descend Distance/Duration 4 steps Treatment Focus balance, glut and quad strengthening Comments Cued for completing 4 steps ascend L HR then turn around, step to descend Min A L HR, therapist supported RLE support guide RLE descend positioning forward clear descend then anterior R knee prevent buckling during LLE advancement, not needed. PT-OP-T Assessment and Plan Start: 12/21/21 17:31 Freq: Status: Active Protocol: Document 02/13/22 10:32 SP (Rec: 02/13/22 11:37 SP [id number]) Physical Therapy Assessment Goals Three Impairment Pt in high falls-risk category Short Term Goal (STG) Pt to improve 6MWT distance by at least 180' to 467' 01/19/22: baseline assessment: 217 ft in 6 min w/ LBQC. 02/09/22: 259 ft in 6 min w/ SBQC 3 pt gait maintaining 70- 72 bpm w/ metronome. 02/13/22: 189 ft in 6min w/qc decrease to 65 bpm metronome with 2 brief stand rests, need to sit in chair end 6MWT, decline head turn ask 30 ft further to bike, nodded yes when asked if dizzy. STG Duration 02/18/22 progressing Financial Planning Assistant Goal (LTG) Pt to increase Bajwa score by at least 7 points to 35/56 to demonstrate a decrease in his falls risk 01/23/22: Bajwa Balance Score 24 /56 today LTG Duration 03/20/22 Two Impairment Pt exhibits R LE MMT measured between 2-/5 to 3+/5 Financial Planning Assistant Goal (LTG) Pt to improve R LE MMT in all planes to at least 3/5 01/23/22: no significant change noted with MMT today LTG Duration 03/20/22 One Impairment Pt does not participate in an appropriate home exercise program Short Term Goal (STG) Pt to be compliant with an approrpiate HEP 01/23/22: patient indicated not doing exercises at home, though also had quizzical look on face when asked about exercises. Has previously been issued written HEP. STG Duration 02/18/22 Assessment Summary Assessment Pt decreased endurance during gait and standing activities and required seated rests between activiteis today. Pt nodded yes to inquiry having dizziness when asked end gait 6MWT, demonstrated leaning more on QC LUE and BLE decrease stride R>L. Pt improved R quad and stride end tx leaving. Physical Therapy Plan Frequency and Duration Frequency of Treatment 2x/Week Duration of Treatment Three months Plan of Care Start Date 12/21/21 Plan of Care End Date 03/20/22 Therapeutic Interventions Therapeutic Interventions Aquatic Therapy,Balance Training,Gait Training,Home Exercise Program,Joint Mobilizations,Manual Therapy, Neuromuscular Re-education, Patient/Caregiver Education, Self-Care/Home Management,Soft Tissue Mobilization, Therapeutic Activities, Therapeutic Exercises Next Visit Focus/Plan Next Note Type Treatment Note Next Visit Plan Warm up bike, shuttle balance. POC: Continue progress functional strength instanding and challenge balance activities. POC: Continue functional strengthening : LE strengthening, gait training, balance challenges
--- NOTE | 2022-02-19 14:30 | PT.OTN ---
Current Diagnoses Hemiplegia and hemiparesis following cerebral infarction affecting right dominant side (02/19/22) Ataxic gait (02/19/22) Other abnormalities of gait and mobility (02/19/22) Weakness (02/19/22) Personal history of transient ischemic attack (TIA), and cerebral infarction without residual deficits (02/19/22) History of falling (02/19/22) Physical Therapy Treatment Note PT-OP-A Visit Information Start: 12/21/21 17:31 Freq: Status: Active Protocol: Document 02/19/22 13:50 SP (Rec: 02/19/22 14:32 SP [id number]) Out-Patient Physical Therapy Visit Information Visit Information Visit Type Treatment Note Visit Note BP post balance activities: 122/ 80s. NOdded yes when asked if dizziness. Visit Start Time 13:50 Visit Stop Time 14:30 Total Visit Minutes 40 Visit Number 14 Number of CARDIOVASCULAR OR NURSE Visits 3 Evaluation Information Evaluation Date 12/21/21 PT-OP-B Current Condition Start: 12/21/21 17:31 Freq: Status: Active Protocol: Document 12/21/21 10:30 DCW (Rec: 12/22/21 08:50 DCW [id number]) Current Condition History of Current Condition Onset Date 2013 Current Complaints Decreased strength, stamina, near falls History of Current Condition Pt is a 66 year old male very well known to this clinic who comes in to skilled PT today with a recent decline in functional mobility, strength, activity tolerance, and balance. Pt had suffered a CVA in 2013, and has been seen multiple times at this clinic since that time to improve balance and activity tolerance . At baseline, pt has fairly significant right hemiparesis and is almost entirely non- verbal. 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 Pt's notes that pt has been experiencing some problems with his lab values, especially a decrease in sodium and iron. also notes that previously, pt would enjoy going out around the town, but now he just prefers to stay home and only moves around from his chair to the bathroom and back. During prior rounds of PT, it has been difficult to convince Sukh to participate in his HEP, however his notes that their son-in-law recently became a CARDIOVASCULAR OR NURSE, so they are hopeful that he will be able to help direct a more comprehensive HEP. Treatment Goals Patient/Caregiver Goals Decrease burden of care, decrease falls risk, improve activity tolerance PT-OP-C Subjective Start: 12/21/21 17:31 Freq: Status: Active Protocol: Document 02/19/22 13:50 SP (Rec: 02/19/22 14:32 SP [id number]) OP-PT Subjective Patient Comments Patient Comments Pt shrugged shlds/shook head no when asked if anything concerning/ changes since last tx. PT-OP-D Balance Start: 12/21/21 17:31 Freq: Status: Active Protocol: Document 12/21/21 10:30 DCW (Rec: 12/21/21 17:36 DCW [id number]) OP-PT Balance Assessment Sitting Balance Static Sitting Balance Ability Normal Dynamic Sitting Balance Ability Good Standing Balance Static Standing Balance Ability Fair Dynamic Standing Balance Ability Fair Balance Tests Bajwa Balance Test Bajwa Balance Test Score 28/56 Bajwa Impairment Rating 40 to 59% Impaired (Score 23- 33) Bajwa Balance Assessment Evaluation Sitting to Standing Ability Several Tries w/Hands Unsupported Stance 30 seconds Sitting Unsupported, Feet on Floor Safely- 2 minutes Standing to Sitting Ability Assist, Control w/Hands Transfer Ability Supervision, Verbal Cues Unsupported Stance- Eyes Closed Supervision, 10 seconds Unsupported Stance- Eyes Open Assist to attain, 15 secs Reaching Forward Standing Safely, 5 inches Pick- Up Object From Floor Supervision Look Behind Shoulder - Standing Shifts Weight Unilateral Turning 360 Degrees Supervision/Verbal Cues Unsupported Stance, Alternating Feet on Assist to Prevent Fall Stair Unsupported Tandem Stance Assist to Step-15 seconds Unilateral Leg Stance Unable,assist to not fall Total Score Bajwa Total Score (out of 56 points) 28 Bajwa Impairment Rating 40 to 59% Impaired (Score 23- 33) Estrella Fall Scale Copyright Permission PT-OP-E Functional Tests Start: 12/21/21 17:31 Freq: Status: Active Protocol: Document 02/09/22 13:44 SP (Rec: 02/09/22 14:44 SP [id number]) Functional Tests 6 Minute Walk Test Distance 259 Device Used SBQC Comments 3 pt gait 70-72bpm on metronome maintains speed PT-OP-G Mobility & Gait Start: 12/21/21 17:31 Freq: Status: Active Protocol: Document 12/21/21 10:30 DCW (Rec: 12/21/21 17:56 DCW [id number]) OP Gait Assessment Gait Gait Assistance Required: Standby Assistance Distance (Feet) 287 Able to Maintain Weight Bearing Status Yes During Gait Assistive Devices Assistive Device Gait Belt,Straight Cane Orthotic/Prosthetic Devices or Brace: Yes Gait Deviations General Gait Pattern Ataxic,Decreased Stride Length ,Decreased Feet Clearance, Flexed Trunk,Lateral Trunk Lean,Step-to Gait Factors Limiting Gait Function Factors Limiting Gait Function Abnormal Tonal Influences, Decreased Activity Tolerance, Decreased Strength,Limited Range of Motion,Poor Balance, Poor Safety Awareness Comments Gait Comments Pt ambulates with a step-to gait pattern, keeps his right arm in a flexed, guarded position, slow meenakshi, left foot internally rotated PT-OP-M Strength Start: 12/21/21 17:31 Freq: Status: Active Protocol: Document 12/21/21 10:30 DCW (Rec: 12/21/21 17:51 DCW [id number]) Hip Strength Hip Manual Muscle Testing Right Flexion (L2) 2 Poor Extension (S1) 2+ Poor+ Abduction 2- Poor- Adduction 3 Fair External Rotation 2 Poor Internal Rotation 2 Poor Left Flexion (L2) 4+ Good+ Extension (S1) 4- Good- Abduction 5 Normal Adduction 4+ Good+ External Rotation 4 Good Internal Rotation 4 Good Knee Strength Knee Manual Muscle Testing Right Flexion (S2) 2+ Poor+ Extension (L3) 3+ Fair+ Left Flexion (S2) 5 Normal Extension (L3) 5 Normal Ankle/Foot Strength Ankle and Foot Manual Muscle Testing Right Dorsiflexion (L4) 4 Good Plantarflexion (S1) 4 Good PT-OP-Q Treatments Start: 12/21/21 17:31 Freq: Status: Active Protocol: Document 02/19/22 13:50 SP (Rec: 02/19/22 14:32 SP [id number]) Cardio Equipment Recumbent Elliptical (BiodStandard Treasury) Duration (Minutes) 6 Resistance 4 Seat Position 9 Other L UE /BLE, 35 RPMs, total steps Gym Equipment Shuttle Recovery Unilateral Squats Details B Resistance 50# L x10, 37# x6, x4 R Shuttle Recovery Platform Stable Bilateral Squats Details Ball between knees Resistance 62# x10> 75# x5, x4, x3 Shuttle Recovery Platform Stable Gait Training Gait Activity gait Description 3 point pattern w/ metronome 72 bpm Device Used LBQC, gait belt Level of Assistance CGA Surface firm, carpet and tile. Distance/Duration 50 ft, 30 ft this tx Treatment Focus 3 point pattern today, progress 2 pt gait Comments Verbal and tactile cues for arm swing, improved feet // and decrease LUE WB on QC, improved decrease lean to L and more upright posture but unable patterning 2 pt gait this tx. Neuro Re-Education Treatment Balance Activities uneven surface balance Surface carballo cushion Equipment on/off QC LUE Reps/Duration WBOS 12 sec, 30 s EO Comments cued wt shift into LLE hurdles Details forward Equipment x4 Reps/Duration 1 lap Comments cCG-10%A lead RLE, 15-25% lead LLE using L QC step to patterning lead each LE, Rail on L x1 marlen to clearr RLE trail LE to stable bal while CARDIOVASCULAR OR NURSE supported RLE clearn. uneven surface Details step up/ downs Surface carballo cushion on 2 risers Equipment L HR Comments CG- 5%A, cues for sequeincing and quad fac on R during LLE repositioning. PT-OP-T Assessment and Plan Start: 12/21/21 17:31 Freq: Status: Active Protocol: Document 02/19/22 13:50 SP (Rec: 02/19/22 14:32 SP [id number]) Physical Therapy Assessment Goals Three Impairment Pt in high falls-risk category Short Term Goal (STG) Pt to improve 6MWT distance by at least 180' to 467' 01/19/22: baseline assessment: 217 ft in 6 min w/ LBQC. 02/09/22: 259 ft in 6 min w/ SBQC 3 pt gait maintaining 70- 72 bpm w/ metronome. 02/13/22: 189 ft in 6min w/qc decrease to 65 bpm metronome with 2 brief stand rests, need to sit in chair end 6MWT, decline head turn ask 30 ft further to bike, nodded yes when asked if dizzy. STG Duration 02/18/22 progressing Wire Frame Maker Goal (LTG) Pt to increase Bajwa score by at least 7 points to 35/56 to demonstrate a decrease in his falls risk 01/23/22: Bajwa Balance Score 24 /56 today LTG Duration 03/20/22 Two Impairment Pt exhibits R LE MMT measured between 2-/5 to 3+/5 Wire Frame Maker Goal (LTG) Pt to improve R LE MMT in all planes to at least 3/5 3/22/22: no significant change noted with MMT today LTG Duration 03/20/22 One Impairment Pt does not participate in an appropriate home exercise program Short Term Goal (STG) Pt to be compliant with an approrpiate HEP 01/23/22: patient indicated not doing exercises at home, though also had quizzical look on face when asked about exercises. Has previously been issued written HEP. STG Duration 02/18/22 Assessment Summary Assessment Pt able to increase resistance on shuttle recovery this tx double leg, requires increased rest breaks to completed 10 reps. Improved feet // during shorter distance gait this tx. Pt continues nod yes after ask if have dizziness with balance activities post sitting, normal values. Uncertain pt understands what asking. Physical Therapy Plan Frequency and Duration Frequency of Treatment 2x/Week Duration of Treatment Three months Plan of Care Start Date 12/21/21 Plan of Care End Date 03/20/22 Therapeutic Interventions Therapeutic Interventions Aquatic Therapy,Balance Training,Gait Training,Home Exercise Program,Joint Mobilizations,Manual Therapy, Neuromuscular Re-education, Patient/Caregiver Education, Self-Care/Home Management,Soft Tissue Mobilization, Therapeutic Activities, Therapeutic Exercises Next Visit Focus/Plan Next Note Type Treatment Note Next Visit Plan Warm up bike, shuttle balance progress 2pt gait, fucntional strength and balance challenges.
--- NOTE | 2022-02-21 16:56 | PT.OTN ---
Current Diagnoses Hemiplegia and hemiparesis following cerebral infarction affecting right dominant side (02/21/22) Ataxic gait (02/21/22) Other abnormalities of gait and mobility (02/21/22) Weakness (02/21/22) Personal history of transient ischemic attack (TIA), and cerebral infarction without residual deficits (02/21/22) History of falling (02/21/22) Physical Therapy Treatment Note PT-OP-A Visit Information Start: 12/21/21 17:31 Freq: Status: Active Protocol: Document 02/21/22 08:19 SAK (Rec: 02/21/22 08:59 [facility] [id number]) Out-Patient Physical Therapy Visit Information Visit Information Visit Type Treatment Note Visit Start Time 08:15 Visit Stop Time 08:57 Total Visit Minutes 42 Visit Number 15 Number of BEDSPREAD INSPECTOR Visits 0 Evaluation Information Evaluation Date 12/21/21 Precautions Precautions expressive aphasia PT-OP-B Current Condition Start: 12/21/21 17:31 Freq: Status: Active Protocol: Document 02/21/22 08:19 SAK (Rec: 02/21/22 08:59 [facility] [id number]) Current Condition History of Current Condition Onset Date 2013 Current Complaints Decreased strength, stamina, near falls History of Current Condition Pt is a 66 year old male very well known to this clinic who comes in to skilled PT today with a recent decline in functional mobility, strength, activity tolerance, and balance. Pt had suffered a CVA in 2013, and has been seen multiple times at this clinic since that time to improve balance and activity tolerance . At baseline, pt has fairly significant right hemiparesis and is almost entirely non- verbal. 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 Pt's notes that pt has been experiencing some problems with his lab values, especially a decrease in sodium and iron. also notes that previously, pt would enjoy going out around the town, but now he just prefers to stay home and only moves around from his chair to the bathroom and back. During prior rounds of PT, it has been difficult to convince Sukh to participate in his HEP, however his notes that their son-in-law recently became a BEDSPREAD INSPECTOR, so they are hopeful that he will be able to help direct a more comprehensive HEP. PT-OP-C Subjective Start: 12/21/21 17:31 Freq: Status: Active Protocol: Document 02/21/22 08:19 SAK (Rec: 02/21/22 08:59 SAK [id number]) OP-PT Subjective Patient Comments Patient Comments No new c/o. Nods when asked if he was doing exercises at home. PT-OP-D Balance Start: 12/21/21 17:31 Freq: Status: Active Protocol: Document 12/21/21 10:30 DCW (Rec: 12/21/21 17:36 DCW [id number]) OP-PT Balance Assessment Sitting Balance Static Sitting Balance Ability Normal Dynamic Sitting Balance Ability Good Standing Balance Static Standing Balance Ability Fair Dynamic Standing Balance Ability Fair Balance Tests Bajwa Balance Test Bajwa Balance Test Score 28/56 Bajwa Impairment Rating 40 to 59% Impaired (Score 23- 33) Bajwa Balance Assessment Evaluation Sitting to Standing Ability Several Tries w/Hands Unsupported Stance 30 seconds Sitting Unsupported, Feet on Floor Safely- 2 minutes Standing to Sitting Ability Assist, Control w/Hands Transfer Ability Supervision, Verbal Cues Unsupported Stance- Eyes Closed Supervision, 10 seconds Unsupported Stance- Eyes Open Assist to attain, 15 secs Reaching Forward Standing Safely, 5 inches Pick- Up Object From Floor Supervision Look Behind Shoulder - Standing Shifts Weight Unilateral Turning 360 Degrees Supervision/Verbal Cues Unsupported Stance, Alternating Feet on Assist to Prevent Fall Stair Unsupported Tandem Stance Assist to Step-15 seconds Unilateral Leg Stance Unable,assist to not fall Total Score Bajwa Total Score (out of 56 points) 28 Bajwa Impairment Rating 40 to 59% Impaired (Score 23- 33) Estrella Fall Scale Copyright Permission PT-OP-E Functional Tests Start: 12/21/21 17:31 Freq: Status: Active Protocol: Document 02/09/22 13:44 SP (Rec: 02/09/22 14:44 SP [id number]) Functional Tests 6 Minute Walk Test Distance 259 Device Used SBQC Comments 3 pt gait 70-72bpm on metronome maintains speed PT-OP-G Mobility & Gait Start: 12/21/21 17:31 Freq: Status: Active Protocol: Document 12/21/21 10:30 DCW (Rec: 12/21/21 17:56 DCW [id number]) OP Gait Assessment Gait Gait Assistance Required: Standby Assistance Distance (Feet) 287 Able to Maintain Weight Bearing Status Yes During Gait Assistive Devices Assistive Device Gait Belt,Straight Cane Orthotic/Prosthetic Devices or Brace: Yes Gait Deviations General Gait Pattern Ataxic,Decreased Stride Length ,Decreased Feet Clearance, Flexed Trunk,Lateral Trunk Lean,Step-to Gait Factors Limiting Gait Function Factors Limiting Gait Function Abnormal Tonal Influences, Decreased Activity Tolerance, Decreased Strength,Limited Range of Motion,Poor Balance, Poor Safety Awareness Comments Gait Comments Pt ambulates with a step-to gait pattern, keeps his right arm in a flexed, guarded position, slow meenakshi, left foot internally rotated PT-OP-M Strength Start: 12/21/21 17:31 Freq: Status: Active Protocol: Document 12/21/21 10:30 DCW (Rec: 12/21/21 17:51 DCW [id number]) Hip Strength Hip Manual Muscle Testing Right Flexion (L2) 2 Poor Extension (S1) 2+ Poor+ Abduction 2- Poor- Adduction 3 Fair External Rotation 2 Poor Internal Rotation 2 Poor Left Flexion (L2) 4+ Good+ Extension (S1) 4- Good- Abduction 5 Normal Adduction 4+ Good+ External Rotation 4 Good Internal Rotation 4 Good Knee Strength Knee Manual Muscle Testing Right Flexion (S2) 2+ Poor+ Extension (L3) 3+ Fair+ Left Flexion (S2) 5 Normal Extension (L3) 5 Normal Ankle/Foot Strength Ankle and Foot Manual Muscle Testing Right Dorsiflexion (L4) 4 Good Plantarflexion (S1) 4 Good PT-OP-Q Treatments Start: 12/21/21 17:31 Freq: Status: Active Protocol: Document 02/21/22 08:19 SAK (Rec: 02/21/22 08:59 SAK [id number]) Cardio Equipment Recumbent Elliptical ([place]) Duration (Minutes) 8 Resistance 4 Seat Position 9 Other left UE/ralph LE's first 4 min, LE's only second 4 min Gym Equipment Shuttle Recovery Unilateral Squats Details B Resistance 50# L x10, 37#R x10 Shuttle Recovery Platform Stable Reps/Time last 2 reps very difficult right Bilateral Squats Details Ball between knees Resistance 75# Shuttle Recovery Platform Stable Reps/Time 10x2, cues for right knee extension Gait Training Gait Activity gait Description 3 point pattern, cues for inc speed, 2 pt gait Device Used LBQC, gait belt Level of Assistance CGA Surface firm, carpet and tile. Distance/Duration 100 ft, 30 ft this tx Treatment Focus 3 point pattern today, unable to progress 2 pt gait Comments Verbal and tactile cues for arm swing, improved feet // and decrease LUE WB on QC, improved decrease lean to L and more upright posture but unable patterning 2 pt gait this tx. Sukh pointed to my metronome matilda as I got it set to 72 bpm and touched it as it to adjust something then PT unable to get back to functioning today. When questioned Sukh he was unable to indicate if the speed or volume was what he was trying to adjust on metronome. Neuro Re-Education Treatment Balance Activities uneven surface balance Surface carballo cushion Equipment on/off QC LUE Reps/Duration WBOS 30 sec x 2 Comments cued wt shift into LLE hurdles Details forward Equipment x5 Reps/Duration 1 lap Comments cCG-10%A lead RLE, 15-25% lead LLE using L QC step to patterning lead each LE, Rail on L x1 marlen to clearr RLE trail LE to stable bal while BEDSPREAD INSPECTOR supported RLE clearn. PT-OP-T Assessment and Plan Start: 12/21/21 17:31 Freq: Status: Active Protocol: Document 02/21/22 08:19 [facility] (Rec: 02/21/22 08:59 [facility] [id number]) Physical Therapy Assessment Goals Three Impairment Pt in high falls-risk category Short Term Goal (STG) Pt to improve 6MWT distance by at least 180' to 467' 01/19/22: baseline assessment: 217 ft in 6 min w/ LBQC. 02/09/22: 259 ft in 6 min w/ SBQC 3 pt gait maintaining 70- 72 bpm w/ metronome. 02/13/22: 189 ft in 6min w/qc decrease to 65 bpm metronome with 2 brief stand rests, need to sit in chair end 6MWT, decline head turn ask 30 ft further to bike, nodded yes when asked if dizzy. STG Duration 02/18/22 progressing Snf Goal (LTG) Pt to increase Bajwa score by at least 7 points to 35/56 to demonstrate a decrease in his falls risk 01/23/22: Bajwa Balance Score 24 /56 today LTG Duration 03/20/22 Two Impairment Pt exhibits R LE MMT measured between 2-/5 to 3+/5 Snf Goal (LTG) Pt to improve R LE MMT in all planes to at least 3/5 22/22: no significant change noted with MMT today LTG Duration 03/20/22 One Impairment Pt does not participate in an appropriate home exercise program Short Term Goal (STG) Pt to be compliant with an approrpiate HEP 01/23/22: patient indicated not doing exercises at home, though also had quizzical look on face when asked about exercises. Has previously been issued written HEP. STG Duration 02/18/22 Assessment Summary Assessment Improved ability on shuttle leg press today though very fatigued. Unable to sequence 2 point gait, indicated confusion, and as noted above tried to adjust PT's metronome matilda. He did indicate that he is doing HEP. Needs heavy UE support for gait over hurdles and onto carballo foam. Physical Therapy Plan Frequency and Duration Frequency of Treatment 2x/Week Duration of Treatment Three months Plan of Care Start Date 12/21/21 Plan of Care End Date 03/20/22 Therapeutic Interventions Therapeutic Interventions Aquatic Therapy,Balance Training,Gait Training,Home Exercise Program,Joint Mobilizations,Manual Therapy, Neuromuscular Re-education, Patient/Caregiver Education, Self-Care/Home Management,Soft Tissue Mobilization, Therapeutic Activities, Therapeutic Exercises Next Visit Focus/Plan Next Note Type Treatment Note Next Visit Plan Warm up bike, shuttle balance progress 2pt gait, fucntional strength and balance challenges.
--- NOTE | 2022-02-27 14:30 | PT.OTN ---
Current Diagnoses Hemiplegia and hemiparesis following cerebral infarction affecting right dominant side (02/27/22) Ataxic gait (02/27/22) Other abnormalities of gait and mobility (02/27/22) Weakness (02/27/22) Personal history of transient ischemic attack (TIA), and cerebral infarction without residual deficits (02/27/22) History of falling (02/27/22) Physical Therapy Treatment Note PT-OP-A Visit Information Start: 12/21/21 17:31 Freq: Status: Active Protocol: Document 02/27/22 13:48 SP (Rec: 02/27/22 14:37 SP [id number]) Out-Patient Physical Therapy Visit Information Visit Information Visit Type Treatment Note Visit Note Pt 5 min late for appt Visit Start Time 13:50 Visit Stop Time 14:30 Total Visit Minutes 40 Visit Number 16 Number of OPTICAL MANAGER Visits 1 Evaluation Information Evaluation Date 12/21/21 Precautions Precautions expressive aphasia PT-OP-B Current Condition Start: 12/21/21 17:31 Freq: Status: Active Protocol: Document 02/21/22 08:19 SAK (Rec: 02/21/22 08:59 SAK [id number]) Current Condition History of Current Condition Onset Date 2013 Current Complaints Decreased strength, stamina, near falls History of Current Condition Pt is a 66 year old male very well known to this clinic who comes in to skilled PT today with a recent decline in functional mobility, strength, activity tolerance, and balance. Pt had suffered a CVA in 2013, and has been seen multiple times at this clinic since that time to improve balance and activity tolerance . At baseline, pt has fairly significant right hemiparesis and is almost entirely non- verbal. 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 Pt's notes that pt has been experiencing some problems with his lab values, especially a decrease in sodium and iron. also notes that previously, pt would enjoy going out around the town, but now he just prefers to stay home and only moves around from his chair to the bathroom and back. During prior rounds of PT, it has been difficult to convince Sukh to participate in his HEP, however his notes that their son-in-law recently became a OPTICAL MANAGER, so they are hopeful that he will be able to help direct a more comprehensive HEP. PT-OP-C Subjective Start: 12/21/21 17:31 Freq: Status: Active Protocol: Document 02/27/22 13:48 SP (Rec: 02/27/22 14:37 SP [id number]) OP-PT Subjective Patient Comments Patient Comments No new c/o. Nods when asked if he was doing exercises at home. PT-OP-D Balance Start: 12/21/21 17:31 Freq: Status: Active Protocol: Document 12/21/21 10:30 DCW (Rec: 12/21/21 17:36 DCW [id number]) OP-PT Balance Assessment Sitting Balance Static Sitting Balance Ability Normal Dynamic Sitting Balance Ability Good Standing Balance Static Standing Balance Ability Fair Dynamic Standing Balance Ability Fair Balance Tests Bajwa Balance Test Bajwa Balance Test Score 28/56 Bajwa Impairment Rating 40 to 59% Impaired (Score 23- 33) Bajwa Balance Assessment Evaluation Sitting to Standing Ability Several Tries w/Hands Unsupported Stance 30 seconds Sitting Unsupported, Feet on Floor Safely- 2 minutes Standing to Sitting Ability Assist, Control w/Hands Transfer Ability Supervision, Verbal Cues Unsupported Stance- Eyes Closed Supervision, 10 seconds Unsupported Stance- Eyes Open Assist to attain, 15 secs Reaching Forward Standing Safely, 5 inches Pick- Up Object From Floor Supervision Look Behind Shoulder - Standing Shifts Weight Unilateral Turning 360 Degrees Supervision/Verbal Cues Unsupported Stance, Alternating Feet on Assist to Prevent Fall Stair Unsupported Tandem Stance Assist to Step-15 seconds Unilateral Leg Stance Unable,assist to not fall Total Score Bajwa Total Score (out of 56 points) 28 Bajwa Impairment Rating 40 to 59% Impaired (Score 23- 33) Estrella Fall Scale Copyright Permission PT-OP-E Functional Tests Start: 12/21/21 17:31 Freq: Status: Active Protocol: Document 02/09/22 13:44 SP (Rec: 02/09/22 14:44 SP [id number]) Functional Tests 6 Minute Walk Test Distance 259 Device Used SBQC Comments 3 pt gait 70-72bpm on metronome maintains speed PT-OP-G Mobility & Gait Start: 12/21/21 17:31 Freq: Status: Active Protocol: Document 12/21/21 10:30 DCW (Rec: 12/21/21 17:56 DCW [id number]) OP Gait Assessment Gait Gait Assistance Required: Standby Assistance Distance (Feet) 287 Able to Maintain Weight Bearing Status Yes During Gait Assistive Devices Assistive Device Gait Belt,Straight Cane Orthotic/Prosthetic Devices or Brace: Yes Gait Deviations General Gait Pattern Ataxic,Decreased Stride Length ,Decreased Feet Clearance, Flexed Trunk,Lateral Trunk Lean,Step-to Gait Factors Limiting Gait Function Factors Limiting Gait Function Abnormal Tonal Influences, Decreased Activity Tolerance, Decreased Strength,Limited Range of Motion,Poor Balance, Poor Safety Awareness Comments Gait Comments Pt ambulates with a step-to gait pattern, keeps his right arm in a flexed, guarded position, slow meenakshi, left foot internally rotated PT-OP-M Strength Start: 12/21/21 17:31 Freq: Status: Active Protocol: Document 12/21/21 10:30 DCW (Rec: 12/21/21 17:51 DCW [id number]) Hip Strength Hip Manual Muscle Testing Right Flexion (L2) 2 Poor Extension (S1) 2+ Poor+ Abduction 2- Poor- Adduction 3 Fair External Rotation 2 Poor Internal Rotation 2 Poor Left Flexion (L2) 4+ Good+ Extension (S1) 4- Good- Abduction 5 Normal Adduction 4+ Good+ External Rotation 4 Good Internal Rotation 4 Good Knee Strength Knee Manual Muscle Testing Right Flexion (S2) 2+ Poor+ Extension (L3) 3+ Fair+ Left Flexion (S2) 5 Normal Extension (L3) 5 Normal Ankle/Foot Strength Ankle and Foot Manual Muscle Testing Right Dorsiflexion (L4) 4 Good Plantarflexion (S1) 4 Good PT-OP-Q Treatments Start: 12/21/21 17:31 Freq: Status: Active Protocol: Document 02/27/22 13:48 SP (Rec: 02/27/22 14:37 SP [id number]) Cardio Equipment Recumbent Elliptical (Biodex) Duration (Minutes) 8 Resistance 4>3 Seat Position 9 Other left UE/ralph LE's first 4 min, LE's only 5 second, needed LUE Gym Equipment Shuttle Balance red clips Details balance fwd/bck Comments Wide NATE: head turn and holds 10- 25%A Decreased endurance, mod cues wt shift into RLE, no stagger today. Therapeutic Exercises Standing Exercises step up/ down Standing Exercise Name 1. lateral step 6 up and overs, 2. neuro not done today Side bilateral Resistance AROM Equipment Used GB LUE Reps/Minutes x5 reps each LE lead up/ down Comments cued tall posture, LUE elbow straight/R quad fac ascend/ desc Gait Training Gait Activity gait Description 3 point pattern, cues for inc speed 2 pt gait Device Used LBQC, gait belt Level of Assistance CGA Surface firm, carpet and tile. Distance/Duration 138 ft, 62 ft this tx Treatment Focus 3 point pattern today, unable to progress 2 pt gait Comments Verbal and tactile cues for arm swing, improved feet // and decrease LUE WB on QC, improved decrease lean to L and more upright posture but unable patterning 2 pt gait this tx. Pt unable to maintain 72 bpm, almost consistant with 70 bpm. Neuro Re-Education Treatment Balance Activities uneven surface balance Surface carballo cushion Equipment 1.on/off L HR ascend/ QC descend LUE Reps/Duration 2.WBOS 30 sec x 2 Comments cued wt shift into LLE PT-OP-T Assessment and Plan Start: 12/21/21 17:31 Freq: Status: Active Protocol: Document 02/27/22 13:48 SP (Rec: 02/27/22 14:37 SP [id number]) Physical Therapy Assessment Goals Three Impairment Pt in high falls-risk category Short Term Goal (STG) Pt to improve 6MWT distance by at least 180' to 467' 01/19/22: baseline assessment: 217 ft in 6 min w/ LBQC. 02/09/22: 259 ft in 6 min w/ SBQC 3 pt gait maintaining 70- 72 bpm w/ metronome. 02/13/22: 189 ft in 6min w/qc decrease to 65 bpm metronome with 2 brief stand rests, need to sit in chair end 6MWT, decline head turn ask 30 ft further to bike, nodded yes when asked if dizzy. STG Duration 02/18/22 progressing Senior Field Service Engineer Goal (LTG) Pt to increase Bajwa score by at least 7 points to 35/56 to demonstrate a decrease in his falls risk 01/23/22: Bajwa Balance Score 24 /56 today LTG Duration 03/20/22 Two Impairment Pt exhibits R LE MMT measured between 2-/5 to 3+/5 Halfway Goal (LTG) Pt to improve R LE MMT in all planes to at least 3/5 01/23/22: no significant change noted with MMT today LTG Duration 03/20/22 One Impairment Pt does not participate in an appropriate home exercise program Short Term Goal (STG) Pt to be compliant with an approrpiate HEP 01/23/22: patient indicated not doing exercises at home, though also had quizzical look on face when asked about exercises. Has previously been issued written HEP. STG Duration 02/18/22 Assessment Summary Assessment Pt unable to indicate 2 pt gait, required seated rest end tx during gait around clinic as last activity due to decreased activity tolerance. Pt confident descend off uneven surface stepping retro but insisted L HR for asecending. Pt ableto side step up/overs this tx heavy WB on LUE, Min A as needed for LLE ABD descend to allow other LE space step down. Physical Therapy Plan Frequency and Duration Frequency of Treatment 2x/Week Duration of Treatment Three months Plan of Care Start Date 12/21/21 Plan of Care End Date 03/20/22 Therapeutic Interventions Therapeutic Interventions Aquatic Therapy,Balance Training,Gait Training,Home Exercise Program,Joint Mobilizations,Manual Therapy, Neuromuscular Re-education, Patient/Caregiver Education, Self-Care/Home Management,Soft Tissue Mobilization, Therapeutic Activities, Therapeutic Exercises Next Visit Focus/Plan Next Note Type Treatment Note Next Visit Plan Next tx: wt shift with golf. POC: Warm up bike, shuttle balance progress 2pt gait, fucntional strength and balance challenges.
--- NOTE | 2022-03-01 13:47 | PT.OTN ---
Current Diagnoses Hemiplegia and hemiparesis following cerebral infarction affecting right dominant side (03/01/22) Ataxic gait (03/01/22) Other abnormalities of gait and mobility (03/01/22) Weakness (03/01/22) Personal history of transient ischemic attack (TIA), and cerebral infarction without residual deficits (03/01/22) History of falling (03/01/22) Physical Therapy Treatment Note PT-OP-A Visit Information Start: 12/21/21 17:31 Freq: Status: Active Protocol: Document 03/01/22 13:06 AW (Rec: 03/01/22 13:46 AW [id number]) Out-Patient Physical Therapy Visit Information Visit Information Visit Type Treatment Note Visit Start Time 13:01 Visit Stop Time 13:26 Total Visit Minutes 40 Visit Number 17 Number of QUALITY SYSTEMS TECHNICIAN Visits 0 Evaluation Information Evaluation Date 12/21/21 PT-OP-B Current Condition Start: 12/21/21 17:31 Freq: Status: Active Protocol: Document 02/21/22 08:19 SAK (Rec: 02/21/22 08:59 SAK [id number]) Current Condition History of Current Condition Onset Date 2013 Current Complaints Decreased strength, stamina, near falls History of Current Condition Pt is a 66 year old male very well known to this clinic who comes in to skilled PT today with a recent decline in functional mobility, strength, activity tolerance, and balance. Pt had suffered a CVA in 2013, and has been seen multiple times at this clinic since that time to improve balance and activity tolerance . At baseline, pt has fairly significant right hemiparesis and is almost entirely non- verbal. 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 Pt's notes that pt has been experiencing some problems with his lab values, especially a decrease in sodium and iron. also notes that previously, pt would enjoy going out around the town, but now he just prefers to stay home and only moves around from his chair to the bathroom and back. During prior rounds of PT, it has been difficult to convince Sukh to participate in his HEP, however his notes that their son-in-law recently became a QUALITY SYSTEMS TECHNICIAN, so they are hopeful that he will be able to help direct a more comprehensive HEP. PT-OP-C Subjective Start: 12/21/21 17:31 Freq: Status: Active Protocol: Document 03/01/22 13:06 AW (Rec: 03/01/22 13:46 AW [id number]) OP-PT Subjective Patient Comments Patient Comments Nods when asked if doing HEP. When pressed, admits <2x/week. PT-OP-D Balance Start: 12/21/21 17:31 Freq: Status: Active Protocol: Document 12/21/21 10:30 DCW (Rec: 12/21/21 17:36 DCW [id number]) OP-PT Balance Assessment Sitting Balance Static Sitting Balance Ability Normal Dynamic Sitting Balance Ability Good Standing Balance Static Standing Balance Ability Fair Dynamic Standing Balance Ability Fair Balance Tests Bajwa Balance Test Bajwa Balance Test Score 28/56 Bajwa Impairment Rating 40 to 59% Impaired (Score 23- 33) Bajwa Balance Assessment Evaluation Sitting to Standing Ability Several Tries w/Hands Unsupported Stance 30 seconds Sitting Unsupported, Feet on Floor Safely- 2 minutes Standing to Sitting Ability Assist, Control w/Hands Transfer Ability Supervision, Verbal Cues Unsupported Stance- Eyes Closed Supervision, 10 seconds Unsupported Stance- Eyes Open Assist to attain, 15 secs Reaching Forward Standing Safely, 5 inches Pick- Up Object From Floor Supervision Look Behind Shoulder - Standing Shifts Weight Unilateral Turning 360 Degrees Supervision/Verbal Cues Unsupported Stance, Alternating Feet on Assist to Prevent Fall Stair Unsupported Tandem Stance Assist to Step-15 seconds Unilateral Leg Stance Unable,assist to not fall Total Score Bajwa Total Score (out of 56 points) 28 Bajwa Impairment Rating 40 to 59% Impaired (Score 23- 33) Estrella Fall Scale Copyright Permission PT-OP-E Functional Tests Start: 12/21/21 17:31 Freq: Status: Active Protocol: Document 02/09/22 13:44 SP (Rec: 02/09/22 14:44 SP [id number]) Functional Tests 6 Minute Walk Test Distance 259 Device Used SBQC Comments 3 pt gait 70-72bpm on metronome maintains speed PT-OP-G Mobility & Gait Start: 12/21/21 17:31 Freq: Status: Active Protocol: Document 12/21/21 10:30 DCW (Rec: 12/21/21 17:56 DCW [id number]) OP Gait Assessment Gait Gait Assistance Required: Standby Assistance Distance (Feet) 287 Able to Maintain Weight Bearing Status Yes During Gait Assistive Devices Assistive Device Gait Belt,Straight Cane Orthotic/Prosthetic Devices or Brace: Yes Gait Deviations General Gait Pattern Ataxic,Decreased Stride Length ,Decreased Feet Clearance, Flexed Trunk,Lateral Trunk Lean,Step-to Gait Factors Limiting Gait Function Factors Limiting Gait Function Abnormal Tonal Influences, Decreased Activity Tolerance, Decreased Strength,Limited Range of Motion,Poor Balance, Poor Safety Awareness Comments Gait Comments Pt ambulates with a step-to gait pattern, keeps his right arm in a flexed, guarded position, slow meenakshi, left foot internally rotated PT-OP-M Strength Start: 12/21/21 17:31 Freq: Status: Active Protocol: Document 12/21/21 10:30 DCW (Rec: 12/21/21 17:51 DCW [id number]) Hip Strength Hip Manual Muscle Testing Right Flexion (L2) 2 Poor Extension (S1) 2+ Poor+ Abduction 2- Poor- Adduction 3 Fair External Rotation 2 Poor Internal Rotation 2 Poor Left Flexion (L2) 4+ Good+ Extension (S1) 4- Good- Abduction 5 Normal Adduction 4+ Good+ External Rotation 4 Good Internal Rotation 4 Good Knee Strength Knee Manual Muscle Testing Right Flexion (S2) 2+ Poor+ Extension (L3) 3+ Fair+ Left Flexion (S2) 5 Normal Extension (L3) 5 Normal Ankle/Foot Strength Ankle and Foot Manual Muscle Testing Right Dorsiflexion (L4) 4 Good Plantarflexion (S1) 4 Good PT-OP-Q Treatments Start: 12/21/21 17:31 Freq: Status: Active Protocol: Document 03/01/22 13:06 AW (Rec: 03/01/22 13:46 AW [id number]) Cardio Equipment Recumbent Elliptical (CareerImp) Duration (Minutes) 8 Resistance 4 Seat Position 9 Other left UE/ralph LE's Gym Equipment Shuttle Recovery Unilateral Squats Details B Resistance 50# L x10, 25#R x10 Shuttle Recovery Platform Stable Reps/Time unable to initiate with 37 RLE ; managable w/ 25 Bilateral Squats Details Ball between knees Resistance 75# Shuttle Recovery Platform Stable Reps/Time 10x2, cues for right knee extension Shuttle Balance red clips Details balance fwd/bck Comments Wide NATE: head turn and holds 10-20% Stagger stance: EO with 20-30% assist Neuro Re-Education Treatment Balance Activities uneven surface balance Surface carballo cushion Equipment 1. side step both directions on and off with LUE on rail Reps/Duration 2.WBOS 30 sec x 2 Comments max cues for leading RLE to leave room for LLE PT-OP-T Assessment and Plan Start: 12/21/21 17:31 Freq: Status: Active Protocol: Document 03/01/22 13:06 AW (Rec: 03/01/22 13:46 AW [id number]) Physical Therapy Assessment Goals Three Impairment Pt in high falls-risk category Short Term Goal (STG) Pt to improve 6MWT distance by at least 180' to 467' 01/19/22: baseline assessment: 217 ft in 6 min w/ LBQC. 02/09/22: 259 ft in 6 min w/ SBQC 3 pt gait maintaining 70- 72 bpm w/ metronome. 02/13/22: 189 ft in 6min w/qc decrease to 65 bpm metronome with 2 brief stand rests, need to sit in chair end 6MWT, decline head turn ask 30 ft further to bike, nodded yes when asked if dizzy. STG Duration 02/18/22 progressing Halfway Goal (LTG) Pt to increase Bajwa score by at least 7 points to 35/56 to demonstrate a decrease in his falls risk 01/23/22: Bajwa Balance Score 24 /56 today LTG Duration 03/20/22 Two Impairment Pt exhibits R LE MMT measured between 2-/5 to 3+/5 Solder Technician Goal (LTG) Pt to improve R LE MMT in all planes to at least 3/5 01/23/22: no significant change noted with MMT today LTG Duration 03/20/22 One Impairment Pt does not participate in an appropriate home exercise program Short Term Goal (STG) Pt to be compliant with an approrpiate HEP 01/23/22: patient indicated not doing exercises at home, though also had quizzical look on face when asked about exercises. Has previously been issued written HEP. STG Duration 02/18/22 Assessment Summary Assessment Very fatigued on shuttle leg press today and pt can not tolerate typical load with single RLE after doing bilateral load. Significant support needed for uneven surface activity. Physical Therapy Plan Frequency and Duration Frequency of Treatment 2x/Week Duration of Treatment Three months Plan of Care Start Date 12/21/21 Plan of Care End Date 03/20/22 Therapeutic Interventions Therapeutic Interventions Aquatic Therapy,Balance Training,Gait Training,Home Exercise Program,Joint Mobilizations,Manual Therapy, Neuromuscular Re-education, Patient/Caregiver Education, Self-Care/Home Management,Soft Tissue Mobilization, Therapeutic Activities, Therapeutic Exercises Next Visit Focus/Plan Next Note Type Treatment Note Next Visit Plan Next tx: wt shift with golf. POC: Warm up bike, shuttle balance progress 2pt gait, fucntional strength and balance challenges.
--- NOTE | 2022-03-05 15:59 | PT.OTN ---
Current Diagnoses Hemiplegia and hemiparesis following cerebral infarction affecting right dominant side (03/05/22) Ataxic gait (03/05/22) Other abnormalities of gait and mobility (03/05/22) Weakness (03/05/22) Personal history of transient ischemic attack (TIA), and cerebral infarction without residual deficits (03/05/22) History of falling (03/05/22) Physical Therapy Treatment Note PT-OP-A Visit Information Start: 12/21/21 17:31 Freq: Status: Active Protocol: Document 03/05/22 15:15 DCW (Rec: 03/05/22 15:58 DCW [id number]) Out-Patient Physical Therapy Visit Information Visit Information Visit Type Treatment Note Visit Start Time 15:15 Visit Stop Time 16:00 Total Visit Minutes 45 Visit Number 18 Number of PATIENT SUPPORT SPECIALIST Visits 0 Evaluation Information Evaluation Date 12/21/21 PT-OP-B Current Condition Start: 12/21/21 17:31 Freq: Status: Active Protocol: Document 02/21/22 08:19 SAK (Rec: 02/21/22 08:59 SAK [id number]) Current Condition History of Current Condition Onset Date 2013 Current Complaints Decreased strength, stamina, near falls History of Current Condition Pt is a 66 year old male very well known to this clinic who comes in to skilled PT today with a recent decline in functional mobility, strength, activity tolerance, and balance. Pt had suffered a CVA in 2013, and has been seen multiple times at this clinic since that time to improve balance and activity tolerance . At baseline, pt has fairly significant right hemiparesis and is almost entirely non- verbal. 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 Pt's notes that pt has been experiencing some problems with his lab values, especially a decrease in sodium and iron. also notes that previously, pt would enjoy going out around the town, but now he just prefers to stay home and only moves around from his chair to the bathroom and back. During prior rounds of PT, it has been difficult to convince Sukh to participate in his HEP, however his notes that their son-in-law recently became a PATIENT SUPPORT SPECIALIST, so they are hopeful that he will be able to help direct a more comprehensive HEP. PT-OP-C Subjective Start: 12/21/21 17:31 Freq: Status: Active Protocol: Document 03/05/22 15:15 DCW (Rec: 03/05/22 15:58 DCW [id number]) OP-PT Subjective Patient Comments Patient Comments Pt indicates he is doing well today. PT-OP-D Balance Start: 12/21/21 17:31 Freq: Status: Active Protocol: Document 12/21/21 10:30 DCW (Rec: 12/21/21 17:36 DCW [id number]) OP-PT Balance Assessment Sitting Balance Static Sitting Balance Ability Normal Dynamic Sitting Balance Ability Good Standing Balance Static Standing Balance Ability Fair Dynamic Standing Balance Ability Fair Balance Tests Bajwa Balance Test Bajwa Balance Test Score 28/56 Bajwa Impairment Rating 40 to 59% Impaired (Score 23- 33) Bajwa Balance Assessment Evaluation Sitting to Standing Ability Several Tries w/Hands Unsupported Stance 30 seconds Sitting Unsupported, Feet on Floor Safely- 2 minutes Standing to Sitting Ability Assist, Control w/Hands Transfer Ability Supervision, Verbal Cues Unsupported Stance- Eyes Closed Supervision, 10 seconds Unsupported Stance- Eyes Open Assist to attain, 15 secs Reaching Forward Standing Safely, 5 inches Pick- Up Object From Floor Supervision Look Behind Shoulder - Standing Shifts Weight Unilateral Turning 360 Degrees Supervision/Verbal Cues Unsupported Stance, Alternating Feet on Assist to Prevent Fall Stair Unsupported Tandem Stance Assist to Step-15 seconds Unilateral Leg Stance Unable,assist to not fall Total Score Bajwa Total Score (out of 56 points) 28 Bajwa Impairment Rating 40 to 59% Impaired (Score 23- 33) Estrella Fall Scale Copyright Permission PT-OP-E Functional Tests Start: 12/21/21 17:31 Freq: Status: Active Protocol: Document 02/09/22 13:44 SP (Rec: 02/09/22 14:44 SP [id number]) Functional Tests 6 Minute Walk Test Distance 259 Device Used SBQC Comments 3 pt gait 70-72bpm on metronome maintains speed PT-OP-G Mobility & Gait Start: 12/21/21 17:31 Freq: Status: Active Protocol: Document 12/21/21 10:30 DCW (Rec: 12/21/21 17:56 DCW [id number]) OP Gait Assessment Gait Gait Assistance Required: Standby Assistance Distance (Feet) 287 Able to Maintain Weight Bearing Status Yes During Gait Assistive Devices Assistive Device Gait Belt,Straight Cane Orthotic/Prosthetic Devices or Brace: Yes Gait Deviations General Gait Pattern Ataxic,Decreased Stride Length ,Decreased Feet Clearance, Flexed Trunk,Lateral Trunk Lean,Step-to Gait Factors Limiting Gait Function Factors Limiting Gait Function Abnormal Tonal Influences, Decreased Activity Tolerance, Decreased Strength,Limited Range of Motion,Poor Balance, Poor Safety Awareness Comments Gait Comments Pt ambulates with a step-to gait pattern, keeps his right arm in a flexed, guarded position, slow meenakshi, left foot internally rotated PT-OP-M Strength Start: 12/21/21 17:31 Freq: Status: Active Protocol: Document 12/21/21 10:30 DCW (Rec: 12/21/21 17:51 DCW [id number]) Hip Strength Hip Manual Muscle Testing Right Flexion (L2) 2 Poor Extension (S1) 2+ Poor+ Abduction 2- Poor- Adduction 3 Fair External Rotation 2 Poor Internal Rotation 2 Poor Left Flexion (L2) 4+ Good+ Extension (S1) 4- Good- Abduction 5 Normal Adduction 4+ Good+ External Rotation 4 Good Internal Rotation 4 Good Knee Strength Knee Manual Muscle Testing Right Flexion (S2) 2+ Poor+ Extension (L3) 3+ Fair+ Left Flexion (S2) 5 Normal Extension (L3) 5 Normal Ankle/Foot Strength Ankle and Foot Manual Muscle Testing Right Dorsiflexion (L4) 4 Good Plantarflexion (S1) 4 Good PT-OP-Q Treatments Start: 12/21/21 17:31 Freq: Status: Active Protocol: Document 03/05/22 15:15 DCW (Rec: 03/05/22 15:58 DCW [id number]) Cardio Equipment Recumbent Elliptical (BiodMercator MedSystems) Duration (Minutes) 8 Resistance 5 Seat Position 9 Other left UE/ralph LE's Gym Equipment Shuttle Recovery Unilateral Squats Details B Resistance 50# L x10, 25#R x10 Shuttle Recovery Platform Stable Bilateral Squats Details Ball between knees Resistance 75# Shuttle Recovery Platform Stable Reps/Time 10x2, cues for right knee extension Shuttle Balance red clips Details balance fwd/bck Comments Wide NATE: head turn and holds 10-20% Stagger stance: EO with 20-30% assist Therapeutic Exercises Sitting Exercises 1 Sitting Exercise Name Hamstring curls Side bilateral Resistance Lv 3 Comments AAROM on R LE Neuro Re-Education Treatment Balance Activities uneven surface balance Surface carballo cushion Equipment 1. Marching with LUE on rail Reps/Duration 2.WBOS 30 sec x 2 hurdles Details forward Equipment x5 Reps/Duration 1 lap Comments cCG-10%A lead RLE, 15-25% lead LLE using L QC step to patterning lead each LE, Rail on L x1 marlen to clearr RLE trail LE to stable bal while PATIENT SUPPORT SPECIALIST supported RLE clearn. SLS Surface firm Equipment // bars heel toe gait Reps/Duration 2x length of parallel bars PT-OP-T Assessment and Plan Start: 12/21/21 17:31 Freq: Status: Active Protocol: Document 03/05/22 15:15 DCW (Rec: 03/05/22 15:58 DCW [id number]) Physical Therapy Assessment Goals Three Impairment Pt in high falls-risk category Short Term Goal (STG) Pt to improve 6MWT distance by at least 180' to 467' 01/19/22: baseline assessment: 217 ft in 6 min w/ LBQC. 02/09/22: 259 ft in 6 min w/ SBQC 3 pt gait maintaining 70- 72 bpm w/ metronome. 02/13/22: 189 ft in 6min w/qc decrease to 65 bpm metronome with 2 brief stand rests, need to sit in chair end 6MWT, decline head turn ask 30 ft further to bike, nodded yes when asked if dizzy. STG Duration 02/18/22 progressing Retirement Goal (LTG) Pt to increase Bajwa score by at least 7 points to 35/56 to demonstrate a decrease in his falls risk 01/23/22: Bajwa Balance Score 24 /56 today LTG Duration 03/20/22 Two Impairment Pt exhibits R LE MMT measured between 2-/5 to 3+/5 Retirement Goal (LTG) Pt to improve R LE MMT in all planes to at least 3/5 01/23/22: no significant change noted with MMT today LTG Duration 03/20/22 One Impairment Pt does not participate in an appropriate home exercise program Short Term Goal (STG) Pt to be compliant with an approrpiate HEP 01/23/22: patient indicated not doing exercises at home, though also had quizzical look on face when asked about exercises. Has previously been issued written HEP. STG Duration 02/18/22 Assessment Summary Assessment Pt did very well today, did not request any rest breaks or water. Performed all activities well. Physical Therapy Plan Frequency and Duration Frequency of Treatment 2x/Week Duration of Treatment Three months Plan of Care Start Date 12/21/21 Plan of Care End Date 03/20/22 Therapeutic Interventions Therapeutic Interventions Aquatic Therapy,Balance Training,Gait Training,Home Exercise Program,Joint Mobilizations,Manual Therapy, Neuromuscular Re-education, Patient/Caregiver Education, Self-Care/Home Management,Soft Tissue Mobilization, Therapeutic Activities, Therapeutic Exercises Next Visit Focus/Plan Next Note Type Progress Note Next Visit Plan Next tx: wt shift with golf. POC: Warm up bike, shuttle balance progress 2pt gait, fucntional strength and balance challenges.
--- NOTE | 2022-03-12 15:56 | PT.OTN ---
Current Diagnoses Hemiplegia and hemiparesis following cerebral infarction affecting right dominant side (03/12/22) Ataxic gait (03/12/22) Other abnormalities of gait and mobility (03/12/22) Weakness (03/12/22) Personal history of transient ischemic attack (TIA), and cerebral infarction without residual deficits (03/12/22) History of falling (03/12/22) Physical Therapy Treatment Note PT-OP-A Visit Information Start: 12/21/21 17:31 Freq: Status: Active Protocol: Document 03/12/22 15:15 DCW (Rec: 03/12/22 15:56 DCW [id number]) Out-Patient Physical Therapy Visit Information Visit Information Visit Type Progress Note Visit Start Time 15:15 Visit Stop Time 16:00 Total Visit Minutes 45 Visit Number 19 Number of MEAL GRINDER TENDER Visits 0 Evaluation Information Evaluation Date 12/21/21 PT-OP-B Current Condition Start: 12/21/21 17:31 Freq: Status: Active Protocol: Document 02/21/22 08:19 SAK (Rec: 02/21/22 08:59 SAK [id number]) Current Condition History of Current Condition Onset Date 2013 Current Complaints Decreased strength, stamina, near falls History of Current Condition Pt is a 66 year old male very well known to this clinic who comes in to skilled PT today with a recent decline in functional mobility, strength, activity tolerance, and balance. Pt had suffered a CVA in 2013, and has been seen multiple times at this clinic since that time to improve balance and activity tolerance . At baseline, pt has fairly significant right hemiparesis and is almost entirely non- verbal. 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 Pt's notes that pt has been experiencing some problems with his lab values, especially a decrease in sodium and iron. also notes that previously, pt would enjoy going out around the town, but now he just prefers to stay home and only moves around from his chair to the bathroom and back. During prior rounds of PT, it has been difficult to convince Sukh to participate in his HEP, however his notes that their son-in-law recently became a MEAL GRINDER TENDER, so they are hopeful that he will be able to help direct a more comprehensive HEP. PT-OP-C Subjective Start: 12/21/21 17:31 Freq: Status: Active Protocol: Document 03/12/22 15:15 DCW (Rec: 03/12/22 15:56 DCW [id number]) OP-PT Subjective Patient Comments Patient Comments Pt indicates he is doing well today. PT-OP-D Balance Start: 12/21/21 17:31 Freq: Status: Active Protocol: Document 03/12/22 15:15 DCW (Rec: 03/12/22 15:40 DCW [id number]) OP-PT Balance Assessment Sitting Balance Static Sitting Balance Ability Normal Dynamic Sitting Balance Ability Good Standing Balance Static Standing Balance Ability Fair Dynamic Standing Balance Ability Fair Balance Tests Bajwa Balance Test Bajwa Balance Test Score 31/56 Bajwa Impairment Rating 40 to 59% Impaired (Score 23- 33) Bajwa Balance Assessment Evaluation Sitting to Standing Ability Independent w/Hands Unsupported Stance Supervision- 2 minutes Sitting Unsupported, Feet on Floor Safely- 2 minutes Standing to Sitting Ability Assist, Control w/Hands Transfer Ability Supervision, Verbal Cues Unsupported Stance- Eyes Closed Supervision, 10 seconds Unsupported Stance- Eyes Open Assist to attain, 15 secs Reaching Forward Standing Safely, 5 inches Pick- Up Object From Floor Supervision Look Behind Shoulder - Standing Turns Sideways Only Turning 360 Degrees Turns slowly, but safely Unsupported Stance, Alternating Feet on Assist to Prevent Fall Stair Unsupported Tandem Stance Assist to Step-15 seconds Unilateral Leg Stance Lifts Leg/Unable to Hold Total Score Bajwa Total Score (out of 56 points) 31 Bajwa Impairment Rating 40 to 59% Impaired (Score 23- 33) Estrella Fall Scale Copyright Permission PT-OP-E Functional Tests Start: 12/21/21 17:31 Freq: Status: Active Protocol: Document 03/12/22 15:15 DCW (Rec: 03/12/22 15:40 DCW [id number]) Functional Tests 6 Minute Walk Test Distance 262 Device Used LBQC Comments 0.72 ft/sec Timed Up and Go (TUG) Score 40.55 Comments /c SPC TUG Impairment Rating 100% Impaired (Score 20) PT-OP-G Mobility & Gait Start: 12/21/21 17:31 Freq: Status: Active Protocol: Document 03/12/22 15:15 DCW (Rec: 03/12/22 15:40 DCW [id number]) OP Gait Assessment Gait Gait Assistance Required: Standby Assistance Distance (Feet) 262 Able to Maintain Weight Bearing Status Yes During Gait Assistive Devices Assistive Device Gait Belt,Straight Cane Orthotic/Prosthetic Devices or Brace: Yes Gait Deviations General Gait Pattern Ataxic,Decreased Stride Length ,Decreased Feet Clearance, Flexed Trunk,Lateral Trunk Lean,Step-to Gait Factors Limiting Gait Function Factors Limiting Gait Function Abnormal Tonal Influences, Decreased Activity Tolerance, Decreased Strength,Limited Range of Motion,Poor Balance, Poor Safety Awareness Comments Gait Comments Pt ambulates with a step-to gait pattern, keeps his right arm in a flexed, guarded position, slow meenakshi, left foot internally rotated PT-OP-M Strength Start: 12/21/21 17:31 Freq: Status: Active Protocol: Document 03/12/22 15:15 DCW (Rec: 03/12/22 15:40 DCW [id number]) Hip Strength Hip Manual Muscle Testing Right Flexion (L2) 2+ Poor+ Extension (S1) 3- Fair- Abduction 2- Poor- Adduction 3 Fair External Rotation 2 Poor Internal Rotation 2 Poor Left Flexion (L2) 4+ Good+ Extension (S1) 4+ Good+ Abduction 5 Normal Adduction 4+ Good+ External Rotation 4 Good Internal Rotation 4 Good Knee Strength Knee Manual Muscle Testing Right Flexion (S2) 2+ Poor+ Extension (L3) 3+ Fair+ Left Flexion (S2) 5 Normal Extension (L3) 5 Normal Ankle/Foot Strength Ankle and Foot Manual Muscle Testing Right Dorsiflexion (L4) 4 Good Plantarflexion (S1) 4 Good PT-OP-Q Treatments Start: 12/21/21 17:31 Freq: Status: Active Protocol: Document 03/12/22 15:15 DCW (Rec: 03/12/22 15:56 DCW [id number]) Gym Equipment Shuttle Recovery Unilateral Squats Details B Resistance 50# L x10, 25#R x10 Shuttle Recovery Platform Stable Bilateral Squats Details Ball between knees Resistance 75# Shuttle Recovery Platform Stable Reps/Time 10x2, cues for right knee extension Neuro Re-Education Treatment Other Activities Tinetti standing balance exercises Comments Bajwa, TUG, MMT, testing PT-OP-T Assessment and Plan Start: 12/21/21 17:31 Freq: Status: Active Protocol: Document 03/12/22 15:15 DCW (Rec: 03/12/22 15:56 DCW [id number]) Physical Therapy Assessment Goals Three Impairment Pt in high falls-risk category Short Term Goal (STG) Pt to improve 6MWT distance by at least 180' to 467' 01/19/22: baseline assessment: 217 ft in 6 min w/ LBQC. 02/09/22: 259 ft in 6 min w/ SBQC 3 pt gait maintaining 70- 72 bpm w/ metronome. 02/13/22: 189 ft in 6min w/qc decrease to 65 bpm metronome with 2 brief stand rests, need to sit in chair end 6MWT, decline head turn ask 30 ft further to bike, nodded yes when asked if dizzy. 03/12/22: Minimal change since eval STG Duration 05/12/22 Glass Mold Repairer Goal (LTG) Pt to increase Bajwa score by at least 7 points to 35/56 to demonstrate a decrease in his falls risk 01/23/22: Bajwa Balance Score 24 /56 today 03/12/22: scores 31/56 today LTG Duration 06/12/22 Two Impairment Pt exhibits R LE MMT measured between 2-/5 to 3+/5 Glass Mold Repairer Goal (LTG) Pt to improve R LE MMT in all planes to at least 3/5 01/23/22: no significant change noted with MMT today 03/12/22: no significant change noted with MMT today LTG Duration 06/12/22 One Impairment Pt does not participate in an appropriate home exercise program Short Term Goal (STG) Pt to be compliant with an approrpiate HEP 01/23/22: patient indicated not doing exercises at home, though also had quizzical look on face when asked about exercises. Has previously been issued written HEP. STG Duration 05/12/22 Assessment Summary Assessment Pt decreased TUG score nearly 10 full seconds, and showed some slight increase in right LE strength. Other testing showed minimal change since eval. Pt struggles with self- motivation at home, limits effectiveness of therapeutic intervention, although pt is showing some slight progress overall. Physical Therapy Plan Frequency and Duration Frequency of Treatment 2x/Week Duration of Treatment Three months Plan of Care Start Date 03/12/22 Plan of Care End Date 06/12/22 Therapeutic Interventions Therapeutic Interventions Aquatic Therapy,Balance Training,Gait Training,Home Exercise Program,Joint Mobilizations,Manual Therapy, Neuromuscular Re-education, Patient/Caregiver Education, Self-Care/Home Management,Soft Tissue Mobilization, Therapeutic Activities, Therapeutic Exercises Next Visit Focus/Plan Next Note Type Treatment Note Next Visit Plan Next tx: wt shift with golf. POC: Warm up bike, shuttle balance progress 2pt gait, fucntional strength and balance challenges.
--- NOTE | 2022-03-12 15:57 | PT.OPPOC ---
Physical, Occupational & Speech Therapy At [facility] Current Diagnoses Hemiplegia and hemiparesis following cerebral infarction affecting right dominant side (03/12/22) Ataxic gait (03/12/22) Other abnormalities of gait and mobility (03/12/22) Weakness (03/12/22) Personal history of transient ischemic attack (TIA), and cerebral infarction without residual deficits (03/12/22) History of falling (03/12/22) Visit Care Team Role Provider Type Delfino Epstein MD Primary Care Provider Physician Specialty: Family Practice Address: [address] [place] [address], [id number] Email: [email or web address] Bernice Lopez PA-C Attending Provider Advanced Dry Cleaning Attendant Referring Provider Specialty: Medical Address: [address], [facility] Email: [email or web address] Plan Of Care PT-OP-T Assessment and Plan Start: 12/21/21 17:31 Freq: Status: Active Protocol: Document 03/12/22 15:15 DCW (Rec: 03/12/22 15:56 DCW [id number]) Physical Therapy Assessment Goals Three Impairment Pt in high falls-risk category Short Term Goal (STG) Pt to improve 6MWT distance by at least 180' to 467' 01/19/22: baseline assessment: 217 ft in 6 min w/ LBQC. 02/09/22: 259 ft in 6 min w/ SBQC 3 pt gait maintaining 70- 72 bpm w/ metronome. 02/13/22: 189 ft in 6min w/qc decrease to 65 bpm metronome with 2 brief stand rests, need to sit in chair end 6MWT, decline head turn ask 30 ft further to bike, nodded yes when asked if dizzy. 03/12/22: Minimal change since eval STG Duration 05/12/22 Sewer Pipe Press Operator Goal (LTG) Pt to increase Bajwa score by at least 7 points to 35/56 to demonstrate a decrease in his falls risk 01/23/22: Bajwa Balance Score 24 /56 today 03/12/22: scores 31/56 today LTG Duration 06/12/22 Two Impairment Pt exhibits R LE MMT measured between 2-/5 to 3+/5 Sewer Pipe Press Operator Goal (LTG) Pt to improve R LE MMT in all planes to at least 3/5 01/23/22: no significant change noted with MMT today 03/12/22: no significant change noted with MMT today LTG Duration 06/12/22 One Impairment Pt does not participate in an appropriate home exercise program Short Term Goal (STG) Pt to be compliant with an approrpiate HEP 01/23/22: patient indicated not doing exercises at home, though also had quizzical look on face when asked about exercises. Has previously been issued written HEP. STG Duration 05/12/22 Assessment Summary Assessment Pt decreased TUG score nearly 10 full seconds, and showed some slight increase in right LE strength. Other testing showed minimal change since eval. Pt struggles with self- motivation at home, limits effectiveness of therapeutic intervention, although pt is showing some slight progress overall. Physical Therapy Plan Frequency and Duration Frequency of Treatment 2x/Week Duration of Treatment Three months Plan of Care Start Date 03/12/22 Plan of Care End Date 06/12/22 Therapeutic Interventions Therapeutic Interventions Aquatic Therapy,Balance Training,Gait Training,Home Exercise Program,Joint Mobilizations,Manual Therapy, Neuromuscular Re-education, Patient/Caregiver Education, Self-Care/Home Management,Soft Tissue Mobilization, Therapeutic Activities, Therapeutic Exercises Next Visit Focus/Plan Next Note Type Treatment Note Next Visit Plan Next tx: wt shift with golf. POC: Warm up bike, shuttle balance progress 2pt gait, fucntional strength and balance challenges. Plan of Care Dates Plan of Care Start Date 03/12/22 Plan of Care End Date 06/12/22 Electronically Signed by: Jefferson Ceron, PT 03/12/22 0281 If you are in agreement with this Plan of Care, please return a signed and dated copy. I have reviewed this Plan of Care and certify that the skilled therapy services above are required to meet the patient?s needs. Physician Signature Date Printed Name and Credentials Clinical Instructor Signature Printed Name and Credentials
--- NOTE | 2022-03-14 13:48 | PT.OTN ---
Current Diagnoses Hemiplegia and hemiparesis following cerebral infarction affecting right dominant side (03/14/22) Ataxic gait (03/14/22) Other abnormalities of gait and mobility (03/14/22) Weakness (03/14/22) Personal history of transient ischemic attack (TIA), and cerebral infarction without residual deficits (03/14/22) History of falling (03/14/22) Physical Therapy Treatment Note PT-OP-A Visit Information Start: 12/21/21 17:31 Freq: Status: Active Protocol: Document 03/14/22 13:14 SP (Rec: 03/14/22 13:53 SP [id number]) Out-Patient Physical Therapy Visit Information Visit Information Visit Type Treatment Note Visit Note Daughter stated he is little shakier today, just gave him his Tamsulsin Med this am. BP 130/89, 96bpm: L UE after gait. Visit Start Time 13:06 Visit Stop Time 13:48 Total Visit Minutes 42 Visit Number 20 Number of RESEARCH ASSISTANT MEMBER Visits 1 Evaluation Information Evaluation Date 12/21/21 Precautions Precautions expressive aphasia PT-OP-B Current Condition Start: 12/21/21 17:31 Freq: Status: Active Protocol: Document 02/21/22 08:19 SAK (Rec: 02/21/22 08:59 SAK [id number]) Current Condition History of Current Condition Onset Date 2013 Current Complaints Decreased strength, stamina, near falls History of Current Condition Pt is a 66 year old male very well known to this clinic who comes in to skilled PT today with a recent decline in functional mobility, strength, activity tolerance, and balance. Pt had suffered a CVA in 2013, and has been seen multiple times at this clinic since that time to improve balance and activity tolerance . At baseline, pt has fairly significant right hemiparesis and is almost entirely non- verbal. 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 Pt's notes that pt has been experiencing some problems with his lab values, especially a decrease in sodium and iron. also notes that previously, pt would enjoy going out around the town, but now he just prefers to stay home and only moves around from his chair to the bathroom and back. During prior rounds of PT, it has been difficult to convince Sukh to participate in his HEP, however his notes that their son-in-law recently became a RESEARCH ASSISTANT MEMBER, so they are hopeful that he will be able to help direct a more comprehensive HEP. PT-OP-C Subjective Start: 12/21/21 17:31 Freq: Status: Active Protocol: Document 03/14/22 13:14 SP (Rec: 03/14/22 13:53 SP [id number]) OP-PT Subjective Patient Comments Patient Comments Pt demonstrates more LUE WB on QC and BLE little shaky, improves with mobiltiy/ gait. PT-OP-D Balance Start: 12/21/21 17:31 Freq: Status: Active Protocol: Document 03/12/22 15:15 DCW (Rec: 03/12/22 15:40 DCW [id number]) OP-PT Balance Assessment Sitting Balance Static Sitting Balance Ability Normal Dynamic Sitting Balance Ability Good Standing Balance Static Standing Balance Ability Fair Dynamic Standing Balance Ability Fair Balance Tests Bajwa Balance Test Bajwa Balance Test Score 31/56 Bajwa Impairment Rating 40 to 59% Impaired (Score 23- 33) Bajwa Balance Assessment Evaluation Sitting to Standing Ability Independent w/Hands Unsupported Stance Supervision- 2 minutes Sitting Unsupported, Feet on Floor Safely- 2 minutes Standing to Sitting Ability Assist, Control w/Hands Transfer Ability Supervision, Verbal Cues Unsupported Stance- Eyes Closed Supervision, 10 seconds Unsupported Stance- Eyes Open Assist to attain, 15 secs Reaching Forward Standing Safely, 5 inches Pick- Up Object From Floor Supervision Look Behind Shoulder - Standing Turns Sideways Only Turning 360 Degrees Turns slowly, but safely Unsupported Stance, Alternating Feet on Assist to Prevent Fall Stair Unsupported Tandem Stance Assist to Step-15 seconds Unilateral Leg Stance Lifts Leg/Unable to Hold Total Score Bajwa Total Score (out of 56 points) 31 Bajwa Impairment Rating 40 to 59% Impaired (Score 23- 33) Estrella Fall Scale Copyright Permission PT-OP-E Functional Tests Start: 12/21/21 17:31 Freq: Status: Active Protocol: Document 03/12/22 15:15 DCW (Rec: 03/12/22 15:40 DCW [id number]) Functional Tests 6 Minute Walk Test Distance 262 Device Used LBQC Comments 0.72 ft/sec Timed Up and Go (TUG) Score 40.55 Comments /c SPC TUG Impairment Rating 100% Impaired (Score 20) PT-OP-G Mobility & Gait Start: 12/21/21 17:31 Freq: Status: Active Protocol: Document 03/12/22 15:15 DCW (Rec: 03/12/22 15:40 DCW [id number]) OP Gait Assessment Gait Gait Assistance Required: Standby Assistance Distance (Feet) 262 Able to Maintain Weight Bearing Status Yes During Gait Assistive Devices Assistive Device Gait Belt,Straight Cane Orthotic/Prosthetic Devices or Brace: Yes Gait Deviations General Gait Pattern Ataxic,Decreased Stride Length ,Decreased Feet Clearance, Flexed Trunk,Lateral Trunk Lean,Step-to Gait Factors Limiting Gait Function Factors Limiting Gait Function Abnormal Tonal Influences, Decreased Activity Tolerance, Decreased Strength,Limited Range of Motion,Poor Balance, Poor Safety Awareness Comments Gait Comments Pt ambulates with a step-to gait pattern, keeps his right arm in a flexed, guarded position, slow meenakshi, left foot internally rotated PT-OP-M Strength Start: 12/21/21 17:31 Freq: Status: Active Protocol: Document 03/12/22 15:15 DCW (Rec: 03/12/22 15:40 DCW [id number]) Hip Strength Hip Manual Muscle Testing Right Flexion (L2) 2+ Poor+ Extension (S1) 3- Fair- Abduction 2- Poor- Adduction 3 Fair External Rotation 2 Poor Internal Rotation 2 Poor Left Flexion (L2) 4+ Good+ Extension (S1) 4+ Good+ Abduction 5 Normal Adduction 4+ Good+ External Rotation 4 Good Internal Rotation 4 Good Knee Strength Knee Manual Muscle Testing Right Flexion (S2) 2+ Poor+ Extension (L3) 3+ Fair+ Left Flexion (S2) 5 Normal Extension (L3) 5 Normal Ankle/Foot Strength Ankle and Foot Manual Muscle Testing Right Dorsiflexion (L4) 4 Good Plantarflexion (S1) 4 Good PT-OP-Q Treatments Start: 12/21/21 17:31 Freq: Status: Active Protocol: Document 03/14/22 13:14 SP (Rec: 03/14/22 13:53 SP [id number]) Gym Equipment Shuttle Recovery Unilateral Squats Details B Resistance 50#>37# L x10, 25#R x10 Shuttle Recovery Platform Stable Bilateral Squats Details Ball between knees Resistance 75#>50 Shuttle Recovery Platform Stable Reps/Time 10x2, cues for right knee extension Therapeutic Exercises Sitting Exercises 3 Sitting Exercise Name hip abd Side bilateral Resistance Tb #2 Reps/Minutes x10 Comments cued RLE out to side 1 Sitting Exercise Name Hamstring curls Side bilateral Resistance Lv 2 Reps/Minutes x10 each LE, support Comments AAROM on R LE Standing Exercises side stepping Side bilateral Equipment Used BUE on rail Reps/Minutes 15 ft x1lap Comments decreases RLE clearance to L and low endurance, 2 stop brief stand rests. Gait Training Gait Activity gait Description 3 point pattern, cues for inc speed 2 pt gait Device Used LBQC, gait belt Level of Assistance CGA Surface firm, carpet and tile. Distance/Duration 64ft, 12ft, 44ft, 90ft Treatment Focus 3 point pattern today, unable to progress 2 pt gait Comments Pt demonstrates little unsteady BLE, increased LUE WB on QC, improved decrease lean to L and more upright posture with cues but tired quickly and required multiple rests between activities. PT-OP-T Assessment and Plan Start: 12/21/21 17:31 Freq: Status: Active Protocol: Document 03/14/22 13:14 SP (Rec: 03/14/22 13:53 SP [id number]) Physical Therapy Assessment Goals Three Impairment Pt in high falls-risk category Short Term Goal (STG) Pt to improve 6MWT distance by at least 180' to 467' 01/19/22: baseline assessment: 217 ft in 6 min w/ LBQC. 02/09/22: 259 ft in 6 min w/ SBQC 3 pt gait maintaining 70- 72 bpm w/ metronome. 02/13/22: 189 ft in 6min w/qc decrease to 65 bpm metronome with 2 brief stand rests, need to sit in chair end 6MWT, decline head turn ask 30 ft further to bike, nodded yes when asked if dizzy. 03/12/22: Minimal change since eval STG Duration 05/12/22 Longterm Goal (LTG) Pt to increase Bajwa score by at least 7 points to 35/56 to demonstrate a decrease in his falls risk 01/23/22: Bajwa Balance Score 24 /56 today 03/12/22: scores 31/56 today LTG Duration 06/12/22 Two Impairment Pt exhibits R LE MMT measured between 2-/5 to 3+/5 Longterm Goal (LTG) Pt to improve R LE MMT in all planes to at least 3/5 01/23/22: no significant change noted with MMT today 03/12/22: no significant change noted with MMT today LTG Duration 06/12/22 One Impairment Pt does not participate in an appropriate home exercise program Short Term Goal (STG) Pt to be compliant with an approrpiate HEP 01/23/22: patient indicated not doing exercises at home, though also had quizzical look on face when asked about exercises. Has previously been issued written HEP. STG Duration 05/12/22 Assessment Summary Assessment Pt decreased activity tolerance and required lowering resistance with LE ther ex today, unsteady BLE initially when arrived decreased but required rest breaks bwtn each activity. Physical Therapy Plan Frequency and Duration Frequency of Treatment 2x/Week Duration of Treatment Three months Plan of Care Start Date 03/12/22 Plan of Care End Date 06/12/22 Therapeutic Interventions Therapeutic Interventions Aquatic Therapy,Balance Training,Gait Training,Home Exercise Program,Joint Mobilizations,Manual Therapy, Neuromuscular Re-education, Patient/Caregiver Education, Self-Care/Home Management,Soft Tissue Mobilization, Therapeutic Activities, Therapeutic Exercises Next Visit Focus/Plan Next Note Type Treatment Note Next Visit Plan Next tx: wt shift with golf. POC: Warm up bike, shuttle balance progress 2pt gait, fucntional strength and balance challenges.
--- NOTE | 2022-03-21 15:12 | PT.OTN ---
Current Diagnoses Hemiplegia and hemiparesis following cerebral infarction affecting right dominant side (03/21/22) Ataxic gait (03/21/22) Other abnormalities of gait and mobility (03/21/22) Weakness (03/21/22) Personal history of transient ischemic attack (TIA), and cerebral infarction without residual deficits (03/21/22) History of falling (03/21/22) Physical Therapy Treatment Note PT-OP-A Visit Information Start: 12/21/21 17:31 Freq: Status: Active Protocol: Document 03/21/22 14:27 SP (Rec: 03/21/22 15:54 SP [id number]) Out-Patient Physical Therapy Visit Information Visit Information Visit Type Treatment Note Visit Note BP 130/89, 96bpm: L UE after gait. Visit Start Time 14:27 Visit Stop Time 15:12 Total Visit Minutes 45 Visit Number 21 Number of REFINING ENGINEER Visits 2 Evaluation Information Evaluation Date 12/21/21 Precautions Precautions expressive aphasia PT-OP-B Current Condition Start: 12/21/21 17:31 Freq: Status: Active Protocol: Document 02/21/22 08:19 SAK (Rec: 02/21/22 08:59 SAK [id number]) Current Condition History of Current Condition Onset Date 2013 Current Complaints Decreased strength, stamina, near falls History of Current Condition Pt is a 66 year old male very well known to this clinic who comes in to skilled PT today with a recent decline in functional mobility, strength, activity tolerance, and balance. Pt had suffered a CVA in 2013, and has been seen multiple times at this clinic since that time to improve balance and activity tolerance . At baseline, pt has fairly significant right hemiparesis and is almost entirely non- verbal. 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 Pt's notes that pt has been experiencing some problems with his lab values, especially a decrease in sodium and iron. also notes that previously, pt would enjoy going out around the town, but now he just prefers to stay home and only moves around from his chair to the bathroom and back. During prior rounds of PT, it has been difficult to convince Sukh to participate in his HEP, however his notes that their son-in-law recently became a REFINING ENGINEER, so they are hopeful that he will be able to help direct a more comprehensive HEP. PT-OP-C Subjective Start: 12/21/21 17:31 Freq: Status: Active Protocol: Document 03/21/22 14:27 SP (Rec: 03/21/22 15:54 SP [id number]) OP-PT Subjective Patient Comments Patient Comments Pt indicate is doing well. PT-OP-D Balance Start: 12/21/21 17:31 Freq: Status: Active Protocol: Document 03/12/22 15:15 DCW (Rec: 03/12/22 15:40 DCW [id number]) OP-PT Balance Assessment Sitting Balance Static Sitting Balance Ability Normal Dynamic Sitting Balance Ability Good Standing Balance Static Standing Balance Ability Fair Dynamic Standing Balance Ability Fair Balance Tests Bajwa Balance Test Bajwa Balance Test Score 31/56 Bajwa Impairment Rating 40 to 59% Impaired (Score 23- 33) Bajwa Balance Assessment Evaluation Sitting to Standing Ability Independent w/Hands Unsupported Stance Supervision- 2 minutes Sitting Unsupported, Feet on Floor Safely- 2 minutes Standing to Sitting Ability Assist, Control w/Hands Transfer Ability Supervision, Verbal Cues Unsupported Stance- Eyes Closed Supervision, 10 seconds Unsupported Stance- Eyes Open Assist to attain, 15 secs Reaching Forward Standing Safely, 5 inches Pick- Up Object From Floor Supervision Look Behind Shoulder - Standing Turns Sideways Only Turning 360 Degrees Turns slowly, but safely Unsupported Stance, Alternating Feet on Assist to Prevent Fall Stair Unsupported Tandem Stance Assist to Step-15 seconds Unilateral Leg Stance Lifts Leg/Unable to Hold Total Score Bajwa Total Score (out of 56 points) 31 Bajwa Impairment Rating 40 to 59% Impaired (Score 23- 33) Estrella Fall Scale Copyright Permission PT-OP-E Functional Tests Start: 12/21/21 17:31 Freq: Status: Active Protocol: Document 03/12/22 15:15 DCW (Rec: 03/12/22 15:40 DCW [id number]) Functional Tests 6 Minute Walk Test Distance 262 Device Used LBQC Comments 0.72 ft/sec Timed Up and Go (TUG) Score 40.55 Comments /c SPC TUG Impairment Rating 100% Impaired (Score 20) PT-OP-G Mobility & Gait Start: 12/21/21 17:31 Freq: Status: Active Protocol: Document 03/12/22 15:15 DCW (Rec: 03/12/22 15:40 DCW [id number]) OP Gait Assessment Gait Gait Assistance Required: Standby Assistance Distance (Feet) 262 Able to Maintain Weight Bearing Status Yes During Gait Assistive Devices Assistive Device Gait Belt,Straight Cane Orthotic/Prosthetic Devices or Brace: Yes Gait Deviations General Gait Pattern Ataxic,Decreased Stride Length ,Decreased Feet Clearance, Flexed Trunk,Lateral Trunk Lean,Step-to Gait Factors Limiting Gait Function Factors Limiting Gait Function Abnormal Tonal Influences, Decreased Activity Tolerance, Decreased Strength,Limited Range of Motion,Poor Balance, Poor Safety Awareness Comments Gait Comments Pt ambulates with a step-to gait pattern, keeps his right arm in a flexed, guarded position, slow meenakshi, left foot internally rotated PT-OP-M Strength Start: 12/21/21 17:31 Freq: Status: Active Protocol: Document 03/12/22 15:15 DCW (Rec: 03/12/22 15:40 DCW [id number]) Hip Strength Hip Manual Muscle Testing Right Flexion (L2) 2+ Poor+ Extension (S1) 3- Fair- Abduction 2- Poor- Adduction 3 Fair External Rotation 2 Poor Internal Rotation 2 Poor Left Flexion (L2) 4+ Good+ Extension (S1) 4+ Good+ Abduction 5 Normal Adduction 4+ Good+ External Rotation 4 Good Internal Rotation 4 Good Knee Strength Knee Manual Muscle Testing Right Flexion (S2) 2+ Poor+ Extension (L3) 3+ Fair+ Left Flexion (S2) 5 Normal Extension (L3) 5 Normal Ankle/Foot Strength Ankle and Foot Manual Muscle Testing Right Dorsiflexion (L4) 4 Good Plantarflexion (S1) 4 Good PT-OP-Q Treatments Start: 12/21/21 17:31 Freq: Status: Active Protocol: Document 03/21/22 14:27 SP (Rec: 03/21/22 15:54 SP [id number]) Cardio Equipment Recumbent Elliptical ([employer]) Duration (Minutes) 8 Resistance 3>5 Seat Position 8 Other left UE/ralph LE's Gym Equipment Shuttle Recovery Unilateral Squats Details B Resistance 50# L 2x10, 37#R 4x5 reps Shuttle Recovery Platform Stable Reps/Time 2x10 Bilateral Squats Details Ball between knees Resistance 62# Shuttle Recovery Platform Stable Reps/Time 10x2, cues for right knee extension Therapeutic Exercises Standing Exercises 1 Standing Exercise Name Toe-taps receiprocal (neuro) Side bilateral Resistance 5# leg wt B x3 reps, seated rest, AROM RLE/ 5# RLE Equipment Used 6 step, L HR Reps/Minutes 4 reps, 5 reps alternating LEs Comments CGA, cued R knee quad fac for stability LLE transitioning Gait Training Gait Activity gait Description 3 point pattern, cues for inc speed 2 pt gaitd Device Used LBQC, gait belt Level of Assistance CGA Surface firm, carpet and tile. Distance/Duration 41', 141', 87' Treatment Focus 3 point pattern today, challenged 2pt gait Comments Pt demonstrates R quad spasming 2nd distance 1 stop stand rest for rest recovery, deccreased LUE WB on QC with quicker advancement. Manual Therapy Treatment Soft Tissue Mobilization R quad Mobilization Type Cross-Friction,Myofascial Release Intensity/Depth Moderate Body Position Sitting Comments manual, diminished spasming for allowance RLE stability during standing activities. Neuro Re-Education Treatment Balance Activities uneven surface Details step up/ downs Surface blue foam Equipment L HR Comments CGA, good sequencing self, noted L quad spasming after 5 reps need sit for recovery. PT-OP-T Assessment and Plan Start: 12/21/21 17:31 Freq: Status: Active Protocol: Document 03/21/22 14:27 SP (Rec: 03/21/22 15:54 SP [id number]) Physical Therapy Assessment Goals Three Impairment Pt in high falls-risk category Short Term Goal (STG) Pt to improve 6MWT distance by at least 180' to 467' 01/19/22: baseline assessment: 217 ft in 6 min w/ LBQC. 02/09/22: 259 ft in 6 min w/ SBQC 3 pt gait maintaining 70- 72 bpm w/ metronome. 02/13/22: 189 ft in 6min w/qc decrease to 65 bpm metronome with 2 brief stand rests, need to sit in chair end 6MWT, decline head turn ask 30 ft further to bike, nodded yes when asked if dizzy. 03/12/22: Minimal change since eval STG Duration 05/12/22 Fpc Goal (LTG) Pt to increase Bajwa score by at least 7 points to 35/56 to demonstrate a decrease in his falls risk 01/23/22: Bajwa Balance Score 24 /56 today 03/12/22: scores 31/56 today LTG Duration 06/12/22 Two Impairment Pt exhibits R LE MMT measured between 2-/5 to 3+/5 Overhead Irrigator Goal (LTG) Pt to improve R LE MMT in all planes to at least 3/5 01/23/22: no significant change noted with MMT today 03/12/22: no significant change noted with MMT today LTG Duration 06/12/22 One Impairment Pt does not participate in an appropriate home exercise program Short Term Goal (STG) Pt to be compliant with an approrpiate HEP 01/23/22: patient indicated not doing exercises at home, though also had quizzical look on face when asked about exercises. Has previously been issued written HEP. STG Duration 05/12/22 Assessment Summary Assessment Pt able to increase shuttle recovery to 50# RLE, 37# LLE, noted R quad spasming post with SLS step taps/ step ups so limited reps and rest breaks needed. Manual to R quad helped diminish spasming. Pt able tolerated increased distances this tx. Physical Therapy Plan Frequency and Duration Frequency of Treatment 2x/Week Duration of Treatment Three months Plan of Care Start Date 03/12/22 Plan of Care End Date 06/12/22 Therapeutic Interventions Therapeutic Interventions Aquatic Therapy,Balance Training,Gait Training,Home Exercise Program,Joint Mobilizations,Manual Therapy, Neuromuscular Re-education, Patient/Caregiver Education, Self-Care/Home Management,Soft Tissue Mobilization, Therapeutic Activities, Therapeutic Exercises Next Visit Focus/Plan Next Note Type Treatment Note Next Visit Plan Next tx: wt shift with golf. POC: Warm up bike, shuttle balance progress 2pt gait, fucntional strength and balance challenges.
--- NOTE | 2022-03-26 15:57 | PT.OTN ---
Current Diagnoses Hemiplegia and hemiparesis following cerebral infarction affecting right dominant side (03/26/22) Ataxic gait (03/26/22) Other abnormalities of gait and mobility (03/26/22) Weakness (03/26/22) Personal history of transient ischemic attack (TIA), and cerebral infarction without residual deficits (03/26/22) History of falling (03/26/22) Physical Therapy Treatment Note PT-OP-A Visit Information Start: 12/21/21 17:31 Freq: Status: Active Protocol: Document 03/26/22 15:18 DCW (Rec: 03/26/22 15:57 DCW [id number]) Out-Patient Physical Therapy Visit Information Visit Information Visit Type Treatment Note Visit Start Time 15:18 Visit Stop Time 16:00 Total Visit Minutes 42 Visit Number 22 Number of OVER [employer] TARGETING SUPERVISOR Visits 0 Evaluation Information Evaluation Date 12/21/21 Precautions Precautions expressive aphasia PT-OP-B Current Condition Start: 12/21/21 17:31 Freq: Status: Active Protocol: Document 02/21/22 08:19 SAK (Rec: 02/21/22 08:59 SAK [id number]) Current Condition History of Current Condition Onset Date 2013 Current Complaints Decreased strength, stamina, near falls History of Current Condition Pt is a 66 year old male very well known to this clinic who comes in to skilled PT today with a recent decline in functional mobility, strength, activity tolerance, and balance. Pt had suffered a CVA in 2013, and has been seen multiple times at this clinic since that time to improve balance and activity tolerance . At baseline, pt has fairly significant right hemiparesis and is almost entirely non- verbal. 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 Pt's notes that pt has been experiencing some problems with his lab values, especially a decrease in sodium and iron. also notes that previously, pt would enjoy going out around the town, but now he just prefers to stay home and only moves around from his chair to the bathroom and back. During prior rounds of PT, it has been difficult to convince Sukh to participate in his HEP, however his notes that their son-in-law recently became a OVER [employer] TARGETING SUPERVISOR, so they are hopeful that he will be able to help direct a more comprehensive HEP. PT-OP-C Subjective Start: 12/21/21 17:31 Freq: Status: Active Protocol: Document 03/26/22 15:18 DCW (Rec: 03/26/22 15:57 DCW [id number]) OP-PT Subjective Patient Comments Patient Comments Pt indicates he is doing well. PT-OP-D Balance Start: 12/21/21 17:31 Freq: Status: Active Protocol: Document 03/12/22 15:15 DCW (Rec: 03/12/22 15:40 DCW [id number]) OP-PT Balance Assessment Sitting Balance Static Sitting Balance Ability Normal Dynamic Sitting Balance Ability Good Standing Balance Static Standing Balance Ability Fair Dynamic Standing Balance Ability Fair Balance Tests Bajwa Balance Test Bajwa Balance Test Score 31/56 Bajwa Impairment Rating 40 to 59% Impaired (Score 23- 33) Bajwa Balance Assessment Evaluation Sitting to Standing Ability Independent w/Hands Unsupported Stance Supervision- 2 minutes Sitting Unsupported, Feet on Floor Safely- 2 minutes Standing to Sitting Ability Assist, Control w/Hands Transfer Ability Supervision, Verbal Cues Unsupported Stance- Eyes Closed Supervision, 10 seconds Unsupported Stance- Eyes Open Assist to attain, 15 secs Reaching Forward Standing Safely, 5 inches Pick- Up Object From Floor Supervision Look Behind Shoulder - Standing Turns Sideways Only Turning 360 Degrees Turns slowly, but safely Unsupported Stance, Alternating Feet on Assist to Prevent Fall Stair Unsupported Tandem Stance Assist to Step-15 seconds Unilateral Leg Stance Lifts Leg/Unable to Hold Total Score Bajwa Total Score (out of 56 points) 31 Bajwa Impairment Rating 40 to 59% Impaired (Score 23- 33) Estrella Fall Scale Copyright Permission PT-OP-E Functional Tests Start: 12/21/21 17:31 Freq: Status: Active Protocol: Document 03/12/22 15:15 DCW (Rec: 03/12/22 15:40 DCW [id number]) Functional Tests 6 Minute Walk Test Distance 262 Device Used LBQC Comments 0.72 ft/sec Timed Up and Go (TUG) Score 40.55 Comments /c SPC TUG Impairment Rating 100% Impaired (Score 20) PT-OP-G Mobility & Gait Start: 12/21/21 17:31 Freq: Status: Active Protocol: Document 03/12/22 15:15 DCW (Rec: 03/12/22 15:40 DCW [id number]) OP Gait Assessment Gait Gait Assistance Required: Standby Assistance Distance (Feet) 262 Able to Maintain Weight Bearing Status Yes During Gait Assistive Devices Assistive Device Gait Belt,Straight Cane Orthotic/Prosthetic Devices or Brace: Yes Gait Deviations General Gait Pattern Ataxic,Decreased Stride Length ,Decreased Feet Clearance, Flexed Trunk,Lateral Trunk Lean,Step-to Gait Factors Limiting Gait Function Factors Limiting Gait Function Abnormal Tonal Influences, Decreased Activity Tolerance, Decreased Strength,Limited Range of Motion,Poor Balance, Poor Safety Awareness Comments Gait Comments Pt ambulates with a step-to gait pattern, keeps his right arm in a flexed, guarded position, slow meenakshi, left foot internally rotated PT-OP-M Strength Start: 12/21/21 17:31 Freq: Status: Active Protocol: Document 03/12/22 15:15 DCW (Rec: 03/12/22 15:40 DCW [id number]) Hip Strength Hip Manual Muscle Testing Right Flexion (L2) 2+ Poor+ Extension (S1) 3- Fair- Abduction 2- Poor- Adduction 3 Fair External Rotation 2 Poor Internal Rotation 2 Poor Left Flexion (L2) 4+ Good+ Extension (S1) 4+ Good+ Abduction 5 Normal Adduction 4+ Good+ External Rotation 4 Good Internal Rotation 4 Good Knee Strength Knee Manual Muscle Testing Right Flexion (S2) 2+ Poor+ Extension (L3) 3+ Fair+ Left Flexion (S2) 5 Normal Extension (L3) 5 Normal Ankle/Foot Strength Ankle and Foot Manual Muscle Testing Right Dorsiflexion (L4) 4 Good Plantarflexion (S1) 4 Good PT-OP-Q Treatments Start: 12/21/21 17:31 Freq: Status: Active Protocol: Document 03/26/22 15:18 DCW (Rec: 03/26/22 15:57 DCW [id number]) Cardio Equipment Recumbent Elliptical ([employer]) Duration (Minutes) 5 Resistance 5 Seat Position 8 Other left UE/ralph LE's Gym Equipment Shuttle Recovery Unilateral Squats Details B Resistance 50# L, 37#R Shuttle Recovery Platform Stable Reps/Time 2x10 Bilateral Squats Details Ball between knees Resistance 62# Shuttle Recovery Platform Stable Reps/Time 2x10 Therapeutic Exercises Sitting Exercises 1 Sitting Exercise Name Hamstring curls Side bilateral Resistance Lv 2 Reps/Minutes x10 each LE, support Comments AAROM on R LE Standing Exercises side stepping Side bilateral Equipment Used BUE on rail Reps/Minutes 15 ft x1lap Comments decreases RLE clearance to L and low endurance, 2 stop brief stand rests. 1 Standing Exercise Name Toe-taps receiprocal (neuro) Side bilateral Resistance 5# leg wt B x5 reps, seated rest Equipment Used 6 step, L HR Reps/Minutes alternating LEs Comments CGA, cued R knee quad fac for stability LLE transitioning Gait Training Gait Activity gait Description 3 point pattern, cues for inc speed 2 pt gaitd Device Used LBQC, gait belt Level of Assistance CGA Surface firm, carpet and tile. Distance/Duration 170' Treatment Focus 3 point pattern today, challenged 2pt gait Comments 2 standing rest breaks PT-OP-T Assessment and Plan Start: 12/21/21 17:31 Freq: Status: Active Protocol: Document 03/26/22 15:18 DCW (Rec: 03/26/22 15:57 DCW [id number]) Physical Therapy Assessment Goals Three Impairment Pt in high falls-risk category Short Term Goal (STG) Pt to improve 6MWT distance by at least 180' to 467' 01/19/22: baseline assessment: 217 ft in 6 min w/ LBQC. 02/09/22: 259 ft in 6 min w/ SBQC 3 pt gait maintaining 70- 72 bpm w/ metronome. 02/13/22: 189 ft in 6min w/qc decrease to 65 bpm metronome with 2 brief stand rests, need to sit in chair end 6MWT, decline head turn ask 30 ft further to bike, nodded yes when asked if dizzy. 03/12/22: Minimal change since eval STG Duration 05/12/22 Assisted Goal (LTG) Pt to increase Bajwa score by at least 7 points to 35/56 to demonstrate a decrease in his falls risk 01/23/22: Bajwa Balance Score 24 /56 today 03/12/22: scores 31/56 today LTG Duration 06/12/22 Two Impairment Pt exhibits R LE MMT measured between 2-/5 to 3+/5 Manager Management Goal (LTG) Pt to improve R LE MMT in all planes to at least 3/5 01/23/22: no significant change noted with MMT today 03/12/22: no significant change noted with MMT today LTG Duration 06/12/22 One Impairment Pt does not participate in an appropriate home exercise program Short Term Goal (STG) Pt to be compliant with an approrpiate HEP 3/22/22: patient indicated not doing exercises at home, though also had quizzical look on face when asked about exercises. Has previously been issued written HEP. STG Duration 05/12/22 Assessment Summary Assessment Pt worked hard today, still greatly struggling to get 2-pt gait despite verbal cues. Physical Therapy Plan Frequency and Duration Frequency of Treatment 2x/Week Duration of Treatment Three months Plan of Care Start Date 03/12/22 Plan of Care End Date 06/12/22 Therapeutic Interventions Therapeutic Interventions Aquatic Therapy,Balance Training,Gait Training,Home Exercise Program,Joint Mobilizations,Manual Therapy, Neuromuscular Re-education, Patient/Caregiver Education, Self-Care/Home Management,Soft Tissue Mobilization, Therapeutic Activities, Therapeutic Exercises Next Visit Focus/Plan Next Note Type Treatment Note Next Visit Plan Next tx: wt shift with golf. POC: Warm up bike, shuttle balance progress 2pt gait, fucntional strength and balance challenges.
--- NOTE | 2022-03-28 12:58 | PT.OTN ---
Current Diagnoses Hemiplegia and hemiparesis following cerebral infarction affecting right dominant side (03/28/22) Ataxic gait (03/28/22) Other abnormalities of gait and mobility (03/28/22) Weakness (03/28/22) Personal history of transient ischemic attack (TIA), and cerebral infarction without residual deficits (03/28/22) History of falling (03/28/22) Physical Therapy Treatment Note PT-OP-A Visit Information Start: 12/21/21 17:31 Freq: Status: Active Protocol: Document 03/28/22 12:16 SP (Rec: 03/28/22 13:00 SP [id number]) Out-Patient Physical Therapy Visit Information Visit Information Visit Type Treatment Note Visit Start Time 12:16 Visit Stop Time 12:58 Total Visit Minutes 42 Visit Number 23 Number of BRAZER CONTROLLED ATMOSPHERIC FURNACE Visits 1 Evaluation Information Evaluation Date 12/21/21 Precautions Precautions expressive aphasia PT-OP-B Current Condition Start: 12/21/21 17:31 Freq: Status: Active Protocol: Document 02/21/22 08:19 SAK (Rec: 02/21/22 08:59 SAK [id number]) Current Condition History of Current Condition Onset Date 2013 Current Complaints Decreased strength, stamina, near falls History of Current Condition Pt is a 66 year old male very well known to this clinic who comes in to skilled PT today with a recent decline in functional mobility, strength, activity tolerance, and balance. Pt had suffered a CVA in 2013, and has been seen multiple times at this clinic since that time to improve balance and activity tolerance . At baseline, pt has fairly significant right hemiparesis and is almost entirely non- verbal. 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 Pt's notes that pt has been experiencing some problems with his lab values, especially a decrease in sodium and iron. also notes that previously, pt would enjoy going out around the town, but now he just prefers to stay home and only moves around from his chair to the bathroom and back. During prior rounds of PT, it has been difficult to convince Sukh to participate in his HEP, however his notes that their son-in-law recently became a BRAZER CONTROLLED ATMOSPHERIC FURNACE, so they are hopeful that he will be able to help direct a more comprehensive HEP. PT-OP-C Subjective Start: 12/21/21 17:31 Freq: Status: Active Protocol: Document 03/28/22 12:16 SP (Rec: 03/28/22 13:00 SP [id number]) OP-PT Subjective Patient Comments Patient Comments Pt indicates he is doing well by nodding when asked. PT-OP-D Balance Start: 12/21/21 17:31 Freq: Status: Active Protocol: Document 03/12/22 15:15 DCW (Rec: 03/12/22 15:40 DCW [id number]) OP-PT Balance Assessment Sitting Balance Static Sitting Balance Ability Normal Dynamic Sitting Balance Ability Good Standing Balance Static Standing Balance Ability Fair Dynamic Standing Balance Ability Fair Balance Tests Bajwa Balance Test Bajwa Balance Test Score 31/56 Bajwa Impairment Rating 40 to 59% Impaired (Score 23- 33) Bajwa Balance Assessment Evaluation Sitting to Standing Ability Independent w/Hands Unsupported Stance Supervision- 2 minutes Sitting Unsupported, Feet on Floor Safely- 2 minutes Standing to Sitting Ability Assist, Control w/Hands Transfer Ability Supervision, Verbal Cues Unsupported Stance- Eyes Closed Supervision, 10 seconds Unsupported Stance- Eyes Open Assist to attain, 15 secs Reaching Forward Standing Safely, 5 inches Pick- Up Object From Floor Supervision Look Behind Shoulder - Standing Turns Sideways Only Turning 360 Degrees Turns slowly, but safely Unsupported Stance, Alternating Feet on Assist to Prevent Fall Stair Unsupported Tandem Stance Assist to Step-15 seconds Unilateral Leg Stance Lifts Leg/Unable to Hold Total Score Bajwa Total Score (out of 56 points) 31 Bajwa Impairment Rating 40 to 59% Impaired (Score 23- 33) Estrella Fall Scale Copyright Permission PT-OP-E Functional Tests Start: 12/21/21 17:31 Freq: Status: Active Protocol: Document 03/12/22 15:15 DCW (Rec: 03/12/22 15:40 DCW [id number]) Functional Tests 6 Minute Walk Test Distance 262 Device Used LBQC Comments 0.72 ft/sec Timed Up and Go (TUG) Score 40.55 Comments /c SPC TUG Impairment Rating 100% Impaired (Score 20) PT-OP-G Mobility & Gait Start: 12/21/21 17:31 Freq: Status: Active Protocol: Document 03/12/22 15:15 DCW (Rec: 03/12/22 15:40 DCW [id number]) OP Gait Assessment Gait Gait Assistance Required: Standby Assistance Distance (Feet) 262 Able to Maintain Weight Bearing Status Yes During Gait Assistive Devices Assistive Device Gait Belt,Straight Cane Orthotic/Prosthetic Devices or Brace: Yes Gait Deviations General Gait Pattern Ataxic,Decreased Stride Length ,Decreased Feet Clearance, Flexed Trunk,Lateral Trunk Lean,Step-to Gait Factors Limiting Gait Function Factors Limiting Gait Function Abnormal Tonal Influences, Decreased Activity Tolerance, Decreased Strength,Limited Range of Motion,Poor Balance, Poor Safety Awareness Comments Gait Comments Pt ambulates with a step-to gait pattern, keeps his right arm in a flexed, guarded position, slow meenakshi, left foot internally rotated PT-OP-M Strength Start: 12/21/21 17:31 Freq: Status: Active Protocol: Document 03/12/22 15:15 DCW (Rec: 03/12/22 15:40 DCW [id number]) Hip Strength Hip Manual Muscle Testing Right Flexion (L2) 2+ Poor+ Extension (S1) 3- Fair- Abduction 2- Poor- Adduction 3 Fair External Rotation 2 Poor Internal Rotation 2 Poor Left Flexion (L2) 4+ Good+ Extension (S1) 4+ Good+ Abduction 5 Normal Adduction 4+ Good+ External Rotation 4 Good Internal Rotation 4 Good Knee Strength Knee Manual Muscle Testing Right Flexion (S2) 2+ Poor+ Extension (L3) 3+ Fair+ Left Flexion (S2) 5 Normal Extension (L3) 5 Normal Ankle/Foot Strength Ankle and Foot Manual Muscle Testing Right Dorsiflexion (L4) 4 Good Plantarflexion (S1) 4 Good PT-OP-Q Treatments Start: 12/21/21 17:31 Freq: Status: Active Protocol: Document 03/28/22 12:16 SP (Rec: 03/28/22 13:00 SP [id number]) Gym Equipment Shuttle Recovery Unilateral Squats Details B Resistance 50# L, 37#> 50# R Shuttle Recovery Platform Stable Reps/Time 2x10 L, x10 R but stop straight rest 4 sec before finish Bilateral Squats Details small green ball between knees Resistance 62#> 75# Shuttle Recovery Platform Stable Reps/Time 2x12 Therapeutic Exercises Standing Exercises step up/ down Standing Exercise Name 1. lateral step 6 up and overs, 2. neuro not done today Side bilateral Resistance 5# leg wt Equipment Used GB LUE 6 step, foam cushion Reps/Minutes x5 reps each LE lead up RLE, seated rest then lean LLE down Comments cued tall posture, LUE elbow straight/R quad fac ascend/ desc 1 Standing Exercise Name Toe-taps receiprocal (neuro) Side bilateral Resistance 5# leg wt B x5 reps Equipment Used 6 step, L HR Reps/Minutes alternating LEs Comments CGA, cued R knee quad fac for stability LLE transitioning Gait Training Gait Activity gait Description 3 point pattern, cues for inc speed 2 pt gaitd Device Used LBQC, gait belt Level of Assistance CGA Surface firm, carpet and tile. Distance/Duration 170' Treatment Focus 3 point pattern today, challenged 2pt gait Comments 2 standing rest breaks Neuro Re-Education Treatment Balance Activities uneven surface balance Surface blue cushion Equipment 1. Marching with LUE QC on L> L HR Reps/Duration 2.WBOS EC 10s, 20s L HR PRN PT-OP-T Assessment and Plan Start: 12/21/21 17:31 Freq: Status: Active Protocol: Document 03/28/22 12:16 SP (Rec: 03/28/22 13:00 SP [id number]) Physical Therapy Assessment Goals Three Impairment Pt in high falls-risk category Short Term Goal (STG) Pt to improve 6MWT distance by at least 180' to 467' 01/19/22: baseline assessment: 217 ft in 6 min w/ LBQC. 02/09/22: 259 ft in 6 min w/ SBQC 3 pt gait maintaining 70- 72 bpm w/ metronome. 02/13/22: 189 ft in 6min w/qc decrease to 65 bpm metronome with 2 brief stand rests, need to sit in chair end 6MWT, decline head turn ask 30 ft further to bike, nodded yes when asked if dizzy. 03/12/22: Minimal change since eval STG Duration 05/12/22 Licensed Tax Consultant Goal (LTG) Pt to increase Bajwa score by at least 7 points to 35/56 to demonstrate a decrease in his falls risk 01/23/22: Bajwa Balance Score 24 /56 today 03/12/22: scores 31/56 today LTG Duration 06/12/22 Two Impairment Pt exhibits R LE MMT measured between 2-/5 to 3+/5 Licensed Tax Consultant Goal (LTG) Pt to improve R LE MMT in all planes to at least 3/5 01/23/22: no significant change noted with MMT today 03/12/22: no significant change noted with MMT today LTG Duration 06/12/22 One Impairment Pt does not participate in an appropriate home exercise program Short Term Goal (STG) Pt to be compliant with an approrpiate HEP 01/23/22: patient indicated not doing exercises at home, though also had quizzical look on face when asked about exercises. Has previously been issued written HEP. STG Duration 05/12/22 Assessment Summary Assessment Pt improved RLE quad facilitation stability stance during LLE mobility and RLE ascend placement hip flexion ascend hip ext clearance descend backward step/cushion QC 1st 2 reps then HR. Able to increase SL resistance today on shuttle recovery. Physical Therapy Plan Frequency and Duration Frequency of Treatment 2x/Week Duration of Treatment Three months Plan of Care Start Date 03/12/22 Plan of Care End Date 06/12/22 Therapeutic Interventions Therapeutic Interventions Aquatic Therapy,Balance Training,Gait Training,Home Exercise Program,Joint Mobilizations,Manual Therapy, Neuromuscular Re-education, Patient/Caregiver Education, Self-Care/Home Management,Soft Tissue Mobilization, Therapeutic Activities, Therapeutic Exercises Next Visit Focus/Plan Next Note Type Treatment Note Next Visit Plan Next tx: wt shift with golf. POC: Warm up bike, shuttle balance progress 2pt gait, fucntional strength and balance challenges.
--- NOTE | 2022-04-03 15:58 | PT.OTN ---
Current Diagnoses Hemiplegia and hemiparesis following cerebral infarction affecting right dominant side (04/03/22) Ataxic gait (04/03/22) Other abnormalities of gait and mobility (04/03/22) Weakness (04/03/22) Personal history of transient ischemic attack (TIA), and cerebral infarction without residual deficits (04/03/22) History of falling (04/03/22) Physical Therapy Treatment Note PT-OP-A Visit Information Start: 12/21/21 17:31 Freq: Status: Active Protocol: Document 04/03/22 15:15 DCW (Rec: 04/03/22 15:58 DCW [id number]) Out-Patient Physical Therapy Visit Information Visit Information Visit Type Treatment Note Visit Start Time 15:15 Visit Stop Time 16:00 Total Visit Minutes 45 Visit Number 24 Number of BRIDGE ENGINEER Visits 0 Evaluation Information Evaluation Date 12/21/21 Precautions Precautions expressive aphasia PT-OP-B Current Condition Start: 12/21/21 17:31 Freq: Status: Active Protocol: Document 02/21/22 08:19 SAK (Rec: 02/21/22 08:59 SAK [id number]) Current Condition History of Current Condition Onset Date 2013 Current Complaints Decreased strength, stamina, near falls History of Current Condition Pt is a 66 year old male very well known to this clinic who comes in to skilled PT today with a recent decline in functional mobility, strength, activity tolerance, and balance. Pt had suffered a CVA in 2013, and has been seen multiple times at this clinic since that time to improve balance and activity tolerance . At baseline, pt has fairly significant right hemiparesis and is almost entirely non- verbal. 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 Pt's notes that pt has been experiencing some problems with his lab values, especially a decrease in sodium and iron. also notes that previously, pt would enjoy going out around the town, but now he just prefers to stay home and only moves around from his chair to the bathroom and back. During prior rounds of PT, it has been difficult to convince Sukh to participate in his HEP, however his notes that their son-in-law recently became a BRIDGE ENGINEER, so they are hopeful that he will be able to help direct a more comprehensive HEP. PT-OP-C Subjective Start: 12/21/21 17:31 Freq: Status: Active Protocol: Document 04/03/22 15:15 DCW (Rec: 04/03/22 15:58 DCW [id number]) OP-PT Subjective Patient Comments Patient Comments Pt indicates he is doing well. PT-OP-D Balance Start: 12/21/21 17:31 Freq: Status: Active Protocol: Document 03/12/22 15:15 DCW (Rec: 03/12/22 15:40 DCW [id number]) OP-PT Balance Assessment Sitting Balance Static Sitting Balance Ability Normal Dynamic Sitting Balance Ability Good Standing Balance Static Standing Balance Ability Fair Dynamic Standing Balance Ability Fair Balance Tests Bajwa Balance Test Bajwa Balance Test Score 31/56 Bajwa Impairment Rating 40 to 59% Impaired (Score 23- 33) Bajwa Balance Assessment Evaluation Sitting to Standing Ability Independent w/Hands Unsupported Stance Supervision- 2 minutes Sitting Unsupported, Feet on Floor Safely- 2 minutes Standing to Sitting Ability Assist, Control w/Hands Transfer Ability Supervision, Verbal Cues Unsupported Stance- Eyes Closed Supervision, 10 seconds Unsupported Stance- Eyes Open Assist to attain, 15 secs Reaching Forward Standing Safely, 5 inches Pick- Up Object From Floor Supervision Look Behind Shoulder - Standing Turns Sideways Only Turning 360 Degrees Turns slowly, but safely Unsupported Stance, Alternating Feet on Assist to Prevent Fall Stair Unsupported Tandem Stance Assist to Step-15 seconds Unilateral Leg Stance Lifts Leg/Unable to Hold Total Score Bajwa Total Score (out of 56 points) 31 Bajwa Impairment Rating 40 to 59% Impaired (Score 23- 33) Estrella Fall Scale Copyright Permission PT-OP-E Functional Tests Start: 12/21/21 17:31 Freq: Status: Active Protocol: Document 03/12/22 15:15 DCW (Rec: 03/12/22 15:40 DCW [id number]) Functional Tests 6 Minute Walk Test Distance 262 Device Used LBQC Comments 0.72 ft/sec Timed Up and Go (TUG) Score 40.55 Comments /c SPC TUG Impairment Rating 100% Impaired (Score 20) PT-OP-G Mobility & Gait Start: 12/21/21 17:31 Freq: Status: Active Protocol: Document 03/12/22 15:15 DCW (Rec: 03/12/22 15:40 DCW [id number]) OP Gait Assessment Gait Gait Assistance Required: Standby Assistance Distance (Feet) 262 Able to Maintain Weight Bearing Status Yes During Gait Assistive Devices Assistive Device Gait Belt,Straight Cane Orthotic/Prosthetic Devices or Brace: Yes Gait Deviations General Gait Pattern Ataxic,Decreased Stride Length ,Decreased Feet Clearance, Flexed Trunk,Lateral Trunk Lean,Step-to Gait Factors Limiting Gait Function Factors Limiting Gait Function Abnormal Tonal Influences, Decreased Activity Tolerance, Decreased Strength,Limited Range of Motion,Poor Balance, Poor Safety Awareness Comments Gait Comments Pt ambulates with a step-to gait pattern, keeps his right arm in a flexed, guarded position, slow meenakshi, left foot internally rotated PT-OP-M Strength Start: 12/21/21 17:31 Freq: Status: Active Protocol: Document 03/12/22 15:15 DCW (Rec: 03/12/22 15:40 DCW [id number]) Hip Strength Hip Manual Muscle Testing Right Flexion (L2) 2+ Poor+ Extension (S1) 3- Fair- Abduction 2- Poor- Adduction 3 Fair External Rotation 2 Poor Internal Rotation 2 Poor Left Flexion (L2) 4+ Good+ Extension (S1) 4+ Good+ Abduction 5 Normal Adduction 4+ Good+ External Rotation 4 Good Internal Rotation 4 Good Knee Strength Knee Manual Muscle Testing Right Flexion (S2) 2+ Poor+ Extension (L3) 3+ Fair+ Left Flexion (S2) 5 Normal Extension (L3) 5 Normal Ankle/Foot Strength Ankle and Foot Manual Muscle Testing Right Dorsiflexion (L4) 4 Good Plantarflexion (S1) 4 Good PT-OP-Q Treatments Start: 12/21/21 17:31 Freq: Status: Active Protocol: Document 04/03/22 15:15 DCW (Rec: 04/03/22 15:58 DCW [id number]) Cardio Equipment Recumbent Elliptical ([employer]) Duration (Minutes) 5 Resistance 5 Seat Position 8 Other left UE/ralph LE's Therapeutic Exercises Sitting Exercises 3 Sitting Exercise Name hip abd Side bilateral Resistance Tb #2 Reps/Minutes x10 Comments cued RLE out to side 2 Sitting Exercise Name LAQ Side bilateral Resistance 5# Reps/Minutes 5 sec hold LLE, AROM RLE support LUE lift femur 1 Sitting Exercise Name Hamstring curls Side bilateral Resistance Lv 2 Reps/Minutes x10 each LE, support Comments AAROM on R LE Standing Exercises side stepping Side bilateral Equipment Used BUE on rail Reps/Minutes 15 ft x1lap Comments decreases RLE clearance to L and low endurance, 2 stop brief stand rests. 1 Standing Exercise Name Toe-taps receiprocal (neuro) Side bilateral Resistance 5# leg wt B x5 reps Equipment Used 6 step, L HR Reps/Minutes alternating LEs Comments CGA, cued R knee quad fac for stability LLE transitioning Neuro Re-Education Treatment Balance Activities Putting Details Standing putting Comments R hand strapped to putter Focus on weight shift, trunk rotation, standing balance PT-OP-T Assessment and Plan Start: 12/21/21 17:31 Freq: Status: Active Protocol: Document 04/03/22 15:15 DCW (Rec: 04/03/22 15:58 DCW [id number]) Physical Therapy Assessment Goals Three Impairment Pt in high falls-risk category Short Term Goal (STG) Pt to improve 6MWT distance by at least 180' to 467' 01/19/22: baseline assessment: 217 ft in 6 min w/ LBQC. 02/09/22: 259 ft in 6 min w/ SBQC 3 pt gait maintaining 70- 72 bpm w/ metronome. 02/13/22: 189 ft in 6min w/qc decrease to 65 bpm metronome with 2 brief stand rests, need to sit in chair end 6MWT, decline head turn ask 30 ft further to bike, nodded yes when asked if dizzy. 03/12/22: Minimal change since eval STG Duration 05/12/22 Group Home Goal (LTG) Pt to increase Bajwa score by at least 7 points to 35/56 to demonstrate a decrease in his falls risk 01/23/22: Bajwa Balance Score 24 /56 today 03/12/22: scores 31/56 today LTG Duration 06/12/22 Two Impairment Pt exhibits R LE MMT measured between 2-/5 to 3+/5 Group Home Goal (LTG) Pt to improve R LE MMT in all planes to at least 3/5 01/23/22: no significant change noted with MMT today 03/12/22: no significant change noted with MMT today LTG Duration 06/12/22 One Impairment Pt does not participate in an appropriate home exercise program Short Term Goal (STG) Pt to be compliant with an appropriate HEP 01/23/22: patient indicated not doing exercises at home, though also had quizzical look on face when asked about exercises. Has previously been issued written HEP. STG Duration 05/12/22 Assessment Summary Assessment Pt demonstrated fairly poor tolerance to standing during putting activity today, needed multiple rest breaks, but happy to be performing enjoyable activity. Physical Therapy Plan Frequency and Duration Frequency of Treatment 2x/Week Duration of Treatment Three months Plan of Care Start Date 03/12/22 Plan of Care End Date 06/12/22 Therapeutic Interventions Therapeutic Interventions Aquatic Therapy,Balance Training,Gait Training,Home Exercise Program,Joint Mobilizations,Manual Therapy, Neuromuscular Re-education, Patient/Caregiver Education, Self-Care/Home Management,Soft Tissue Mobilization, Therapeutic Activities, Therapeutic Exercises Next Visit Focus/Plan Next Note Type Treatment Note Next Visit Plan Next tx: wt shift with golf. POC: Warm up bike, shuttle balance progress 2pt gait, fucntional strength and balance challenges.
--- NOTE | 2022-04-06 14:35 | PT.OTN ---
Current Diagnoses Hemiplegia and hemiparesis following cerebral infarction affecting right dominant side (04/06/22) Ataxic gait (04/06/22) Other abnormalities of gait and mobility (04/06/22) Weakness (04/06/22) Personal history of transient ischemic attack (TIA), and cerebral infarction without residual deficits (04/06/22) History of falling (04/06/22) Physical Therapy Treatment Note PT-OP-A Visit Information Start: 12/21/21 17:31 Freq: Status: Active Protocol: Document 04/06/22 13:49 SP (Rec: 04/06/22 14:42 SP [id number]) Out-Patient Physical Therapy Visit Information Visit Information Visit Type Treatment Note Visit Note See self assessment for L great toe issue discussed with end tx. Visit Start Time 13:49 Visit Stop Time 14:35 Total Visit Minutes 46 Visit Number 25 Number of AUTO RENTAL SUPERVISOR Visits 1 Evaluation Information Evaluation Date 12/21/21 Precautions Precautions expressive aphasia PT-OP-B Current Condition Start: 12/21/21 17:31 Freq: Status: Active Protocol: Document 02/21/22 08:19 SAK (Rec: 02/21/22 08:59 SAK [id number]) Current Condition History of Current Condition Onset Date 2013 Current Complaints Decreased strength, stamina, near falls History of Current Condition Pt is a 66 year old male very well known to this clinic who comes in to skilled PT today with a recent decline in functional mobility, strength, activity tolerance, and balance. Pt had suffered a CVA in 2013, and has been seen multiple times at this clinic since that time to improve balance and activity tolerance . At baseline, pt has fairly significant right hemiparesis and is almost entirely non- verbal. 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 Pt's notes that pt has been experiencing some problems with his lab values, especially a decrease in sodium and iron. also notes that previously, pt would enjoy going out around the town, but now he just prefers to stay home and only moves around from his chair to the bathroom and back. During prior rounds of PT, it has been difficult to convince Sukh to participate in his HEP, however his notes that their son-in-law recently became a AUTO RENTAL SUPERVISOR, so they are hopeful that he will be able to help direct a more comprehensive HEP. PT-OP-C Subjective Start: 12/21/21 17:31 Freq: Status: Active Protocol: Document 04/06/22 13:49 SP (Rec: 04/06/22 14:42 SP [id number]) OP-PT Subjective Patient Comments Patient Comments Pt shook head indicating no when asked if any concerns or changes since last tx. And indicated doing well when asked by nodding yes motion. PT-OP-D Balance Start: 12/21/21 17:31 Freq: Status: Active Protocol: Document 03/12/22 15:15 DCW (Rec: 03/12/22 15:40 DCW [id number]) OP-PT Balance Assessment Sitting Balance Static Sitting Balance Ability Normal Dynamic Sitting Balance Ability Good Standing Balance Static Standing Balance Ability Fair Dynamic Standing Balance Ability Fair Balance Tests Bajwa Balance Test Bajwa Balance Test Score 31/56 Bajwa Impairment Rating 40 to 59% Impaired (Score 23- 33) Bajwa Balance Assessment Evaluation Sitting to Standing Ability Independent w/Hands Unsupported Stance Supervision- 2 minutes Sitting Unsupported, Feet on Floor Safely- 2 minutes Standing to Sitting Ability Assist, Control w/Hands Transfer Ability Supervision, Verbal Cues Unsupported Stance- Eyes Closed Supervision, 10 seconds Unsupported Stance- Eyes Open Assist to attain, 15 secs Reaching Forward Standing Safely, 5 inches Pick- Up Object From Floor Supervision Look Behind Shoulder - Standing Turns Sideways Only Turning 360 Degrees Turns slowly, but safely Unsupported Stance, Alternating Feet on Assist to Prevent Fall Stair Unsupported Tandem Stance Assist to Step-15 seconds Unilateral Leg Stance Lifts Leg/Unable to Hold Total Score Bajwa Total Score (out of 56 points) 31 Bajwa Impairment Rating 40 to 59% Impaired (Score 23- 33) Estrella Fall Scale Copyright Permission PT-OP-E Functional Tests Start: 12/21/21 17:31 Freq: Status: Active Protocol: Document 03/12/22 15:15 DCW (Rec: 03/12/22 15:40 DCW [id number]) Functional Tests 6 Minute Walk Test Distance 262 Device Used LBQC Comments 0.72 ft/sec Timed Up and Go (TUG) Score 40.55 Comments /c SPC TUG Impairment Rating 100% Impaired (Score 20) PT-OP-G Mobility & Gait Start: 12/21/21 17:31 Freq: Status: Active Protocol: Document 03/12/22 15:15 DCW (Rec: 03/12/22 15:40 DCW [id number]) OP Gait Assessment Gait Gait Assistance Required: Standby Assistance Distance (Feet) 262 Able to Maintain Weight Bearing Status Yes During Gait Assistive Devices Assistive Device Gait Belt,Straight Cane Orthotic/Prosthetic Devices or Brace: Yes Gait Deviations General Gait Pattern Ataxic,Decreased Stride Length ,Decreased Feet Clearance, Flexed Trunk,Lateral Trunk Lean,Step-to Gait Factors Limiting Gait Function Factors Limiting Gait Function Abnormal Tonal Influences, Decreased Activity Tolerance, Decreased Strength,Limited Range of Motion,Poor Balance, Poor Safety Awareness Comments Gait Comments Pt ambulates with a step-to gait pattern, keeps his right arm in a flexed, guarded position, slow meenakshi, left foot internally rotated PT-OP-M Strength Start: 12/21/21 17:31 Freq: Status: Active Protocol: Document 03/12/22 15:15 DCW (Rec: 03/12/22 15:40 DCW [id number]) Hip Strength Hip Manual Muscle Testing Right Flexion (L2) 2+ Poor+ Extension (S1) 3- Fair- Abduction 2- Poor- Adduction 3 Fair External Rotation 2 Poor Internal Rotation 2 Poor Left Flexion (L2) 4+ Good+ Extension (S1) 4+ Good+ Abduction 5 Normal Adduction 4+ Good+ External Rotation 4 Good Internal Rotation 4 Good Knee Strength Knee Manual Muscle Testing Right Flexion (S2) 2+ Poor+ Extension (L3) 3+ Fair+ Left Flexion (S2) 5 Normal Extension (L3) 5 Normal Ankle/Foot Strength Ankle and Foot Manual Muscle Testing Right Dorsiflexion (L4) 4 Good Plantarflexion (S1) 4 Good PT-OP-Q Treatments Start: 12/21/21 17:31 Freq: Status: Active Protocol: Document 04/06/22 13:49 SP (Rec: 04/06/22 14:42 SP [id number]) Cardio Equipment Recumbent Elliptical ([employer]!) Duration (Minutes) 5 Resistance 5 Seat Position 9 Other left UE/ralph LE's: 548 steps Gym Equipment Shuttle Recovery Unilateral Squats Details B Resistance L 50#, R 37#> 50#>37#> 25# Shuttle Recovery Platform Stable Reps/Time 2x10 L; RLE 8, 2, 10 reps Bilateral Squats Details small green ball between knees Resistance 75# Shuttle Recovery Platform Stable Reps/Time 2x10 Therapeutic Exercises Sitting Exercises 2 Sitting Exercise Name LAQ Side bilateral Resistance 5# BLE leg weight Reps/Minutes 5 sec hold LLE, 5# x3 reps> AROM x2 reps RLE support LUE & AUTO RENTAL SUPERVISOR lift femur Gait Training Gait Activity gait Description 3 point pattern, cues for inc speed 2 pt gait Device Used LBQC, gait belt Level of Assistance CGA Surface firm, carpet and tile. Distance/Duration 170', 80 ft, 35 ft Treatment Focus 3 point pattern, increase speed Comments brief stop stand rests longer distance, nodded yes when asked if doing ok today. Neuro Re-Education Treatment Balance Activities squat objects off floor Details picked up 3 golf balls off floor WBOS Comments CGA, steady no LOB reaching with LUE. hurdles Details forward Equipment 3 hurdles, //bars, 5# leg wts BLE Reps/Duration x3 laps Comments good effort hip flexion. CG-10 %A lead RLE, Rail on L, x1 R foot caught 1 marlen self rail support recovery. Putting Details Standing putting Surface firm Equipment green, 3 golf balls, putter Reps/Duration x3 reps Comments * R hand strapped to putter next tx Focus on weight shift, trunk rotation, standing balance Self-Care/Home Management Treatment Education Patient Education Safety Caregiver Education Provided recommendation of contact to hearing stenographer for further assessment of reported L great toe and up on inspection end tx medial distal swelling and stated DIP jt has colored spot (AUTO RENTAL SUPERVISOR didn't remove bandaid for visual assessment). will call and follow up. Suggested elevation and using CP, removing shoes for comfort when not WB to allow healing ability without compression of shoe. Didn't note that inside black sneaker had anything that could cause L toe irritation. PT-OP-T Assessment and Plan Start: 12/21/21 17:31 Freq: Status: Active Protocol: Document 04/06/22 13:49 SP (Rec: 04/06/22 14:42 SP [id number]) Physical Therapy Assessment Goals Three Impairment Pt in high falls-risk category Short Term Goal (STG) Pt to improve 6MWT distance by at least 180' to 467' 01/19/22: baseline assessment: 217 ft in 6 min w/ LBQC. 02/09/22: 259 ft in 6 min w/ SBQC 3 pt gait maintaining 70- 72 bpm w/ metronome. 02/13/22: 189 ft in 6min w/qc decrease to 65 bpm metronome with 2 brief stand rests, need to sit in chair end 6MWT, decline head turn ask 30 ft further to bike, nodded yes when asked if dizzy. 03/12/22: Minimal change since eval STG Duration 05/12/22 Rn Occupational Goal (LTG) Pt to increase Bajwa score by at least 7 points to 35/56 to demonstrate a decrease in his falls risk 01/23/22: Bajwa Balance Score 24 /56 today 03/12/22: scores 31/56 today LTG Duration 06/12/22 Two Impairment Pt exhibits R LE MMT measured between 2-/5 to 3+/5 Retirement Goal (LTG) Pt to improve R LE MMT in all planes to at least 3/5 01/23/22: no significant change noted with MMT today 03/12/22: no significant change noted with MMT today LTG Duration 06/12/22 One Impairment Pt does not participate in an appropriate home exercise program Short Term Goal (STG) Pt to be compliant with an approrpiate HEP 01/23/22: patient indicated not doing exercises at home, though also had quizzical look on face when asked about exercises. Has previously been issued written HEP. STG Duration 05/12/22 Assessment Summary Assessment Pt good effort during ther ex today. L quad spasming post each activity but resolved after seated rest. Pt nodded when asked if wanted SBA to car to meet . Suggested to and pt call hearing stenographer for further assessment R great toe swelling and reported colored spot over DIP jt to decrease worsening. Suggested icing in meantime. Physical Therapy Plan Frequency and Duration Frequency of Treatment 2x/Week Duration of Treatment Three months Plan of Care Start Date 03/12/22 Plan of Care End Date 06/12/22 Therapeutic Interventions Therapeutic Interventions Aquatic Therapy,Balance Training,Gait Training,Home Exercise Program,Joint Mobilizations,Manual Therapy, Neuromuscular Re-education, Patient/Caregiver Education, Self-Care/Home Management,Soft Tissue Mobilization, Therapeutic Activities, Therapeutic Exercises Next Visit Focus/Plan Next Note Type Treatment Note Next Visit Plan Recheck L great toe, and periodic foot check. Next tx: activities RLE wt acceptance for functional strengthening. POC: Warm up bike, shuttle balance progress 2pt gait, fucntional strength and balance challenges.
--- NOTE | 2022-04-09 14:30 | PT.OTN ---
Current Diagnoses Ataxic gait (04/09/22) Other abnormalities of gait and mobility (04/09/22) Weakness (04/09/22) Personal history of transient ischemic attack (TIA), and cerebral infarction without residual deficits (04/09/22) History of falling (04/09/22) Physical Therapy Treatment Note PT-OP-A Visit Information Start: 12/21/21 17:31 Freq: Status: Active Protocol: Document 04/09/22 13:45 DCW (Rec: 04/09/22 14:30 DCW [id number]) Out-Patient Physical Therapy Visit Information Visit Information Visit Type Treatment Note Visit Start Time 13:45 Visit Stop Time 14:30 Total Visit Minutes 45 Visit Number 26 Number of RN PROCEDURES Visits 0 Evaluation Information Evaluation Date 12/21/21 Precautions Precautions expressive aphasia PT-OP-B Current Condition Start: 12/21/21 17:31 Freq: Status: Active Protocol: Document 02/21/22 08:19 SAK (Rec: 02/21/22 08:59 SAK [id number]) Current Condition History of Current Condition Onset Date 2013 Current Complaints Decreased strength, stamina, near falls History of Current Condition Pt is a 66 year old male very well known to this clinic who comes in to skilled PT today with a recent decline in functional mobility, strength, activity tolerance, and balance. Pt had suffered a CVA in 2013, and has been seen multiple times at this clinic since that time to improve balance and activity tolerance . At baseline, pt has fairly significant right hemiparesis and is almost entirely non- verbal. 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 Pt's notes that pt has been experiencing some problems with his lab values, especially a decrease in sodium and iron. also notes that previously, pt would enjoy going out around the town, but now he just prefers to stay home and only moves around from his chair to the bathroom and back. During prior rounds of PT, it has been difficult to convince Sukh to participate in his HEP, however his notes that their son-in-law recently became a RN PROCEDURES, so they are hopeful that he will be able to help direct a more comprehensive HEP. PT-OP-C Subjective Start: 12/21/21 17:31 Freq: Status: Active Protocol: Document 04/09/22 13:45 DCW (Rec: 04/09/22 14:30 DCW [id number]) OP-PT Subjective Patient Comments Patient Comments Asked pt about toe, pt indicated that it was feeling better. PT-OP-D Balance Start: 12/21/21 17:31 Freq: Status: Active Protocol: Document 03/12/22 15:15 DCW (Rec: 03/12/22 15:40 DCW [id number]) OP-PT Balance Assessment Sitting Balance Static Sitting Balance Ability Normal Dynamic Sitting Balance Ability Good Standing Balance Static Standing Balance Ability Fair Dynamic Standing Balance Ability Fair Balance Tests Bajwa Balance Test Bajwa Balance Test Score 31/56 Bajwa Impairment Rating 40 to 59% Impaired (Score 23- 33) Bajwa Balance Assessment Evaluation Sitting to Standing Ability Independent w/Hands Unsupported Stance Supervision- 2 minutes Sitting Unsupported, Feet on Floor Safely- 2 minutes Standing to Sitting Ability Assist, Control w/Hands Transfer Ability Supervision, Verbal Cues Unsupported Stance- Eyes Closed Supervision, 10 seconds Unsupported Stance- Eyes Open Assist to attain, 15 secs Reaching Forward Standing Safely, 5 inches Pick- Up Object From Floor Supervision Look Behind Shoulder - Standing Turns Sideways Only Turning 360 Degrees Turns slowly, but safely Unsupported Stance, Alternating Feet on Assist to Prevent Fall Stair Unsupported Tandem Stance Assist to Step-15 seconds Unilateral Leg Stance Lifts Leg/Unable to Hold Total Score Bajwa Total Score (out of 56 points) 31 Bajwa Impairment Rating 40 to 59% Impaired (Score 23- 33) Estrella Fall Scale Copyright Permission PT-OP-E Functional Tests Start: 12/21/21 17:31 Freq: Status: Active Protocol: Document 03/12/22 15:15 DCW (Rec: 03/12/22 15:40 DCW [id number]) Functional Tests 6 Minute Walk Test Distance 262 Device Used LBQC Comments 0.72 ft/sec Timed Up and Go (TUG) Score 40.55 Comments /c SPC TUG Impairment Rating 100% Impaired (Score 20) PT-OP-G Mobility & Gait Start: 12/21/21 17:31 Freq: Status: Active Protocol: Document 03/12/22 15:15 DCW (Rec: 03/12/22 15:40 DCW [id number]) OP Gait Assessment Gait Gait Assistance Required: Standby Assistance Distance (Feet) 262 Able to Maintain Weight Bearing Status Yes During Gait Assistive Devices Assistive Device Gait Belt,Straight Cane Orthotic/Prosthetic Devices or Brace: Yes Gait Deviations General Gait Pattern Ataxic,Decreased Stride Length ,Decreased Feet Clearance, Flexed Trunk,Lateral Trunk Lean,Step-to Gait Factors Limiting Gait Function Factors Limiting Gait Function Abnormal Tonal Influences, Decreased Activity Tolerance, Decreased Strength,Limited Range of Motion,Poor Balance, Poor Safety Awareness Comments Gait Comments Pt ambulates with a step-to gait pattern, keeps his right arm in a flexed, guarded position, slow meenakshi, left foot internally rotated PT-OP-M Strength Start: 12/21/21 17:31 Freq: Status: Active Protocol: Document 03/12/22 15:15 DCW (Rec: 03/12/22 15:40 DCW [id number]) Hip Strength Hip Manual Muscle Testing Right Flexion (L2) 2+ Poor+ Extension (S1) 3- Fair- Abduction 2- Poor- Adduction 3 Fair External Rotation 2 Poor Internal Rotation 2 Poor Left Flexion (L2) 4+ Good+ Extension (S1) 4+ Good+ Abduction 5 Normal Adduction 4+ Good+ External Rotation 4 Good Internal Rotation 4 Good Knee Strength Knee Manual Muscle Testing Right Flexion (S2) 2+ Poor+ Extension (L3) 3+ Fair+ Left Flexion (S2) 5 Normal Extension (L3) 5 Normal Ankle/Foot Strength Ankle and Foot Manual Muscle Testing Right Dorsiflexion (L4) 4 Good Plantarflexion (S1) 4 Good PT-OP-Q Treatments Start: 12/21/21 17:31 Freq: Status: Active Protocol: Document 04/09/22 13:45 DCW (Rec: 04/09/22 14:30 DCW [id number]) Cardio Equipment Recumbent Elliptical ([employer]) Duration (Minutes) 5 Resistance 5 Seat Position 9 Other left UE/ralph LE's Gym Equipment Shuttle Balance red clips Details balance fwd/bck Comments Wide NATE, Stagger stance Therapeutic Exercises Sitting Exercises 2 Sitting Exercise Name LAQ Side bilateral Resistance 5# BLE leg weight Reps/Minutes 5 sec hold LLE, 5# x3 reps> AROM x2 reps RLE support LUE & RN PROCEDURES lift femur Standing Exercises side stepping Side bilateral Equipment Used BUE on rail Reps/Minutes 15 ft x1lap Neuro Re-Education Treatment Balance Activities hurdles Details forward Equipment 6 hurdles, //bars, 5# leg wts BLE Reps/Duration x3 laps Comments good effort hip flexion. CG-10 %A lead RLE, Rail on L, x1 R foot caught 1 marlen self rail support recovery. Putting Details Standing putting Comments Focus on weight shift, trunk rotation, standing balance PT-OP-T Assessment and Plan Start: 12/21/21 17:31 Freq: Status: Active Protocol: Document 04/09/22 13:45 DCW (Rec: 04/09/22 14:30 DCW [id number]) Physical Therapy Assessment Goals Three Impairment Pt in high falls-risk category Short Term Goal (STG) Pt to improve 6MWT distance by at least 180' to 467' 01/19/22: baseline assessment: 217 ft in 6 min w/ LBQC. 02/09/22: 259 ft in 6 min w/ SBQC 3 pt gait maintaining 70- 72 bpm w/ metronome. 02/13/22: 189 ft in 6min w/qc decrease to 65 bpm metronome with 2 brief stand rests, need to sit in chair end 6MWT, decline head turn ask 30 ft further to bike, nodded yes when asked if dizzy. 03/12/22: Minimal change since eval STG Duration 05/12/22 Residential Goal (LTG) Pt to increase Bajwa score by at least 7 points to 35/56 to demonstrate a decrease in his falls risk 01/23/22: Bajwa Balance Score 24 /56 today 03/12/22: scores 31/56 today LTG Duration 06/12/22 Two Impairment Pt exhibits R LE MMT measured between 2-/5 to 3+/5 Labor Crew Supervisor Goal (LTG) Pt to improve R LE MMT in all planes to at least 3/5 01/23/22: no significant change noted with MMT today 03/12/22: no significant change noted with MMT today LTG Duration 06/12/22 One Impairment Pt does not participate in an appropriate home exercise program Short Term Goal (STG) Pt to be compliant with an approrpiate HEP 01/23/22: patient indicated not doing exercises at home, though also had quizzical look on face when asked about exercises. Has previously been issued written HEP. STG Duration 05/12/22 Assessment Summary Assessment Pt demonstrating improved ability to hold putter with right hand without strapping. Improved weight shifting and standing tolerance today. Physical Therapy Plan Frequency and Duration Frequency of Treatment 2x/Week Duration of Treatment Three months Plan of Care Start Date 03/12/22 Plan of Care End Date 06/12/22 Therapeutic Interventions Therapeutic Interventions Aquatic Therapy,Balance Training,Gait Training,Home Exercise Program,Joint Mobilizations,Manual Therapy, Neuromuscular Re-education, Patient/Caregiver Education, Self-Care/Home Management,Soft Tissue Mobilization, Therapeutic Activities, Therapeutic Exercises Next Visit Focus/Plan Next Note Type Treatment Note Next Visit Plan Recheck L great toe, and periodic foot check. Next tx: activities RLE wt acceptance for functional strengthening. POC: Warm up bike, shuttle balance progress 2pt gait, fucntional strength and balance challenges.
--- NOTE | 2022-04-11 13:36 | PT.OTN ---
Current Diagnoses Ataxic gait (04/11/22) Other abnormalities of gait and mobility (04/11/22) Weakness (04/11/22) Personal history of transient ischemic attack (TIA), and cerebral infarction without residual deficits (04/11/22) History of falling (04/11/22) Physical Therapy Treatment Note PT-OP-A Visit Information Start: 12/21/21 17:31 Freq: Status: Active Protocol: Document 04/11/22 13:00 SP (Rec: 04/11/22 13:57 SP [id number]) Out-Patient Physical Therapy Visit Information Visit Information Visit Type Treatment Note Visit Note Pt had to leave appt early, per daughter request. Visit Start Time 13:00 Visit Stop Time 13:36 Total Visit Minutes 36 Visit Number 27 Number of ICU NURSE Visits 1 Evaluation Information Evaluation Date 12/21/21 Precautions Precautions expressive aphasia PT-OP-B Current Condition Start: 12/21/21 17:31 Freq: Status: Active Protocol: Document 02/21/22 08:19 SAK (Rec: 02/21/22 08:59 SAK [id number]) Current Condition History of Current Condition Onset Date 2013 Current Complaints Decreased strength, stamina, near falls History of Current Condition Pt is a 66 year old male very well known to this clinic who comes in to skilled PT today with a recent decline in functional mobility, strength, activity tolerance, and balance. Pt had suffered a CVA in 2013, and has been seen multiple times at this clinic since that time to improve balance and activity tolerance . At baseline, pt has fairly significant right hemiparesis and is almost entirely non- verbal. 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 Pt's notes that pt has been experiencing some problems with his lab values, especially a decrease in sodium and iron. also notes that previously, pt would enjoy going out around the town, but now he just prefers to stay home and only moves around from his chair to the bathroom and back. During prior rounds of PT, it has been difficult to convince Sukh to participate in his HEP, however his notes that their son-in-law recently became a ICU NURSE, so they are hopeful that he will be able to help direct a more comprehensive HEP. PT-OP-C Subjective Start: 12/21/21 17:31 Freq: Status: Active Protocol: Document 04/11/22 13:00 SP (Rec: 04/11/22 13:57 SP [id number]) OP-PT Subjective Patient Comments Patient Comments Pt indicated shaking head no when asked if L great toe hurt , shrugged shoulders when asked if called Dr regarding R great toe swelling . No compensating gait upon arrival, indicating L foot discomfort. PT-OP-D Balance Start: 12/21/21 17:31 Freq: Status: Active Protocol: Document 03/12/22 15:15 DCW (Rec: 03/12/22 15:40 DCW [id number]) OP-PT Balance Assessment Sitting Balance Static Sitting Balance Ability Normal Dynamic Sitting Balance Ability Good Standing Balance Static Standing Balance Ability Fair Dynamic Standing Balance Ability Fair Balance Tests Bajwa Balance Test Bajwa Balance Test Score 31/56 Bajwa Impairment Rating 40 to 59% Impaired (Score 23- 33) Bajwa Balance Assessment Evaluation Sitting to Standing Ability Independent w/Hands Unsupported Stance Supervision- 2 minutes Sitting Unsupported, Feet on Floor Safely- 2 minutes Standing to Sitting Ability Assist, Control w/Hands Transfer Ability Supervision, Verbal Cues Unsupported Stance- Eyes Closed Supervision, 10 seconds Unsupported Stance- Eyes Open Assist to attain, 15 secs Reaching Forward Standing Safely, 5 inches Pick- Up Object From Floor Supervision Look Behind Shoulder - Standing Turns Sideways Only Turning 360 Degrees Turns slowly, but safely Unsupported Stance, Alternating Feet on Assist to Prevent Fall Stair Unsupported Tandem Stance Assist to Step-15 seconds Unilateral Leg Stance Lifts Leg/Unable to Hold Total Score Bajwa Total Score (out of 56 points) 31 Bajwa Impairment Rating 40 to 59% Impaired (Score 23- 33) Estrella Fall Scale Copyright Permission PT-OP-E Functional Tests Start: 12/21/21 17:31 Freq: Status: Active Protocol: Document 03/12/22 15:15 DCW (Rec: 03/12/22 15:40 DCW [id number]) Functional Tests 6 Minute Walk Test Distance 262 Device Used LBQC Comments 0.72 ft/sec Timed Up and Go (TUG) Score 40.55 Comments /c SPC TUG Impairment Rating 100% Impaired (Score 20) PT-OP-G Mobility & Gait Start: 12/21/21 17:31 Freq: Status: Active Protocol: Document 03/12/22 15:15 DCW (Rec: 03/12/22 15:40 DCW [id number]) OP Gait Assessment Gait Gait Assistance Required: Standby Assistance Distance (Feet) 262 Able to Maintain Weight Bearing Status Yes During Gait Assistive Devices Assistive Device Gait Belt,Straight Cane Orthotic/Prosthetic Devices or Brace: Yes Gait Deviations General Gait Pattern Ataxic,Decreased Stride Length ,Decreased Feet Clearance, Flexed Trunk,Lateral Trunk Lean,Step-to Gait Factors Limiting Gait Function Factors Limiting Gait Function Abnormal Tonal Influences, Decreased Activity Tolerance, Decreased Strength,Limited Range of Motion,Poor Balance, Poor Safety Awareness Comments Gait Comments Pt ambulates with a step-to gait pattern, keeps his right arm in a flexed, guarded position, slow meenakshi, left foot internally rotated PT-OP-M Strength Start: 12/21/21 17:31 Freq: Status: Active Protocol: Document 03/12/22 15:15 DCW (Rec: 03/12/22 15:40 DCW [id number]) Hip Strength Hip Manual Muscle Testing Right Flexion (L2) 2+ Poor+ Extension (S1) 3- Fair- Abduction 2- Poor- Adduction 3 Fair External Rotation 2 Poor Internal Rotation 2 Poor Left Flexion (L2) 4+ Good+ Extension (S1) 4+ Good+ Abduction 5 Normal Adduction 4+ Good+ External Rotation 4 Good Internal Rotation 4 Good Knee Strength Knee Manual Muscle Testing Right Flexion (S2) 2+ Poor+ Extension (L3) 3+ Fair+ Left Flexion (S2) 5 Normal Extension (L3) 5 Normal Ankle/Foot Strength Ankle and Foot Manual Muscle Testing Right Dorsiflexion (L4) 4 Good Plantarflexion (S1) 4 Good PT-OP-Q Treatments Start: 12/21/21 17:31 Freq: Status: Active Protocol: Document 04/11/22 13:00 SP (Rec: 04/11/22 13:57 SP [id number]) Cardio Equipment Recumbent Elliptical (BiodNode Management) Duration (Minutes) 5 Resistance 5 Seat Position 9 Other left UE/ralph LE's: 343 steps Gym Equipment Shuttle Recovery Unilateral Squats Details B Resistance L 50#, R 37#> 25# Shuttle Recovery Platform Stable Reps/Time 2x10 L; RLE 37# x3 reps, 25# 8 , 10 reps Bilateral Squats Details small green ball between knees Resistance 75# Shuttle Recovery Platform Stable Reps/Time x20 Shuttle Balance red clips Details balance fwd/bck Comments Wide NATE 4-5 apart, NBOS 3 a part, Stagger stance, CG- 15% A Gait Training Gait Activity gait Description 3 point pattern, cues for inc speed 2 pt gait Device Used LBQC, gait belt Level of Assistance CGA Surface firm, carpet and tile. Distance/Duration 100ft Treatment Focus 3 point pattern, increase speed Comments good effort full distance. Self-Care/Home Management Treatment Education Patient Education Safety Other Education L foot and great toe skin assessment: normal color, DIP jt skin healing from scab/ reported black spot falling off per daughter comment. No swelling or discoloration noted. PT-OP-T Assessment and Plan Start: 12/21/21 17:31 Freq: Status: Active Protocol: Document 04/11/22 13:00 SP (Rec: 04/11/22 13:57 SP [id number]) Physical Therapy Assessment Goals Three Impairment Pt in high falls-risk category Short Term Goal (STG) Pt to improve 6MWT distance by at least 180' to 467' 01/19/22: baseline assessment: 217 ft in 6 min w/ LBQC. 02/09/22: 259 ft in 6 min w/ SBQC 3 pt gait maintaining 70- 72 bpm w/ metronome. 02/13/22: 189 ft in 6min w/qc decrease to 65 bpm metronome with 2 brief stand rests, need to sit in chair end 6MWT, decline head turn ask 30 ft further to bike, nodded yes when asked if dizzy. 03/12/22: Minimal change since eval STG Duration 05/12/22 Half-Way Goal (LTG) Pt to increase Bajwa score by at least 7 points to 35/56 to demonstrate a decrease in his falls risk 01/23/22: Bajwa Balance Score 24 /56 today 03/12/22: scores 31/56 today LTG Duration 06/12/22 Two Impairment Pt exhibits R LE MMT measured between 2-/5 to 3+/5 Half-Way Goal (LTG) Pt to improve R LE MMT in all planes to at least 3/5 01/23/22: no significant change noted with MMT today 03/12/22: no significant change noted with MMT today LTG Duration 06/12/22 One Impairment Pt does not participate in an appropriate home exercise program Short Term Goal (STG) Pt to be compliant with an approrpiate HEP 01/23/22: patient indicated not doing exercises at home, though also had quizzical look on face when asked about exercises. Has previously been issued written HEP. STG Duration 05/12/22 Assessment Summary Assessment Pt good effort and tolerance to ther ex today, L quad little shakiness end tx on shuttle recovery, requiring 2 stop stand rests, nodded indicating yes when aske if LLE tiring, cued for wt shift into RLE. Physical Therapy Plan Frequency and Duration Frequency of Treatment 2x/Week Duration of Treatment Three months Plan of Care Start Date 03/12/22 Plan of Care End Date 06/12/22 Therapeutic Interventions Therapeutic Interventions Aquatic Therapy,Balance Training,Gait Training,Home Exercise Program,Joint Mobilizations,Manual Therapy, Neuromuscular Re-education, Patient/Caregiver Education, Self-Care/Home Management,Soft Tissue Mobilization, Therapeutic Activities, Therapeutic Exercises Next Visit Focus/Plan Next Note Type Treatment Note Next Visit Plan Continue: activities RLE wt acceptance for functional strengthening, Warm up bike, shuttle balance progress 2pt gait, fucntional strength and balance challenges.
--- NOTE | 2022-04-16 15:59 | PT.OTN ---
Current Diagnoses Ataxic gait (04/16/22) Other abnormalities of gait and mobility (04/16/22) Weakness (04/16/22) Personal history of transient ischemic attack (TIA), and cerebral infarction without residual deficits (04/16/22) History of falling (04/16/22) Physical Therapy Treatment Note PT-OP-A Visit Information Start: 12/21/21 17:31 Freq: Status: Active Protocol: Document 04/16/22 15:20 DCW (Rec: 04/16/22 15:59 DCW [id number]) Out-Patient Physical Therapy Visit Information Visit Information Visit Type Treatment Note Visit Start Time 15:20 Visit Stop Time 16:00 Total Visit Minutes 40 Visit Number 28 Number of TRANSIT OPERATOR Visits 0 Evaluation Information Evaluation Date 12/21/21 Precautions Precautions expressive aphasia PT-OP-B Current Condition Start: 12/21/21 17:31 Freq: Status: Active Protocol: Document 02/21/22 08:19 SAK (Rec: 02/21/22 08:59 SAK [id number]) Current Condition History of Current Condition Onset Date 2013 Current Complaints Decreased strength, stamina, near falls History of Current Condition Pt is a 66 year old male very well known to this clinic who comes in to skilled PT today with a recent decline in functional mobility, strength, activity tolerance, and balance. Pt had suffered a CVA in 2013, and has been seen multiple times at this clinic since that time to improve balance and activity tolerance . At baseline, pt has fairly significant right hemiparesis and is almost entirely non- verbal. 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 Pt's notes that pt has been experiencing some problems with his lab values, especially a decrease in sodium and iron. also notes that previously, pt would enjoy going out around the town, but now he just prefers to stay home and only moves around from his chair to the bathroom and back. During prior rounds of PT, it has been difficult to convince Sukh to participate in his HEP, however his notes that their son-in-law recently became a TRANSIT OPERATOR, so they are hopeful that he will be able to help direct a more comprehensive HEP. PT-OP-C Subjective Start: 12/21/21 17:31 Freq: Status: Active Protocol: Document 04/16/22 15:20 DCW (Rec: 04/16/22 15:59 DCW [id number]) OP-PT Subjective Patient Comments Patient Comments Pt notes he is feeling good today. PT-OP-D Balance Start: 12/21/21 17:31 Freq: Status: Active Protocol: Document 03/12/22 15:15 DCW (Rec: 03/12/22 15:40 DCW [id number]) OP-PT Balance Assessment Sitting Balance Static Sitting Balance Ability Normal Dynamic Sitting Balance Ability Good Standing Balance Static Standing Balance Ability Fair Dynamic Standing Balance Ability Fair Balance Tests Bajwa Balance Test Bajwa Balance Test Score 31/56 Bajwa Impairment Rating 40 to 59% Impaired (Score 23- 33) Bajwa Balance Assessment Evaluation Sitting to Standing Ability Independent w/Hands Unsupported Stance Supervision- 2 minutes Sitting Unsupported, Feet on Floor Safely- 2 minutes Standing to Sitting Ability Assist, Control w/Hands Transfer Ability Supervision, Verbal Cues Unsupported Stance- Eyes Closed Supervision, 10 seconds Unsupported Stance- Eyes Open Assist to attain, 15 secs Reaching Forward Standing Safely, 5 inches Pick- Up Object From Floor Supervision Look Behind Shoulder - Standing Turns Sideways Only Turning 360 Degrees Turns slowly, but safely Unsupported Stance, Alternating Feet on Assist to Prevent Fall Stair Unsupported Tandem Stance Assist to Step-15 seconds Unilateral Leg Stance Lifts Leg/Unable to Hold Total Score Bajwa Total Score (out of 56 points) 31 Bajwa Impairment Rating 40 to 59% Impaired (Score 23- 33) Estrella Fall Scale Copyright Permission PT-OP-E Functional Tests Start: 12/21/21 17:31 Freq: Status: Active Protocol: Document 03/12/22 15:15 DCW (Rec: 03/12/22 15:40 DCW [id number]) Functional Tests 6 Minute Walk Test Distance 262 Device Used LBQC Comments 0.72 ft/sec Timed Up and Go (TUG) Score 40.55 Comments /c SPC TUG Impairment Rating 100% Impaired (Score 20) PT-OP-G Mobility & Gait Start: 12/21/21 17:31 Freq: Status: Active Protocol: Document 03/12/22 15:15 DCW (Rec: 03/12/22 15:40 DCW [id number]) OP Gait Assessment Gait Gait Assistance Required: Standby Assistance Distance (Feet) 262 Able to Maintain Weight Bearing Status Yes During Gait Assistive Devices Assistive Device Gait Belt,Straight Cane Orthotic/Prosthetic Devices or Brace: Yes Gait Deviations General Gait Pattern Ataxic,Decreased Stride Length ,Decreased Feet Clearance, Flexed Trunk,Lateral Trunk Lean,Step-to Gait Factors Limiting Gait Function Factors Limiting Gait Function Abnormal Tonal Influences, Decreased Activity Tolerance, Decreased Strength,Limited Range of Motion,Poor Balance, Poor Safety Awareness Comments Gait Comments Pt ambulates with a step-to gait pattern, keeps his right arm in a flexed, guarded position, slow meenakshi, left foot internally rotated PT-OP-M Strength Start: 12/21/21 17:31 Freq: Status: Active Protocol: Document 03/12/22 15:15 DCW (Rec: 03/12/22 15:40 DCW [id number]) Hip Strength Hip Manual Muscle Testing Right Flexion (L2) 2+ Poor+ Extension (S1) 3- Fair- Abduction 2- Poor- Adduction 3 Fair External Rotation 2 Poor Internal Rotation 2 Poor Left Flexion (L2) 4+ Good+ Extension (S1) 4+ Good+ Abduction 5 Normal Adduction 4+ Good+ External Rotation 4 Good Internal Rotation 4 Good Knee Strength Knee Manual Muscle Testing Right Flexion (S2) 2+ Poor+ Extension (L3) 3+ Fair+ Left Flexion (S2) 5 Normal Extension (L3) 5 Normal Ankle/Foot Strength Ankle and Foot Manual Muscle Testing Right Dorsiflexion (L4) 4 Good Plantarflexion (S1) 4 Good PT-OP-Q Treatments Start: 12/21/21 17:31 Freq: Status: Active Protocol: Document 04/16/22 15:20 DCW (Rec: 04/16/22 15:59 DCW [id number]) Cardio Equipment Recumbent Elliptical (BiodJaunt) Duration (Minutes) 5 Resistance 5 Seat Position 9 Other left UE/ralph LE's: steps Gym Equipment Shuttle Balance red clips Details balance fwd/bck Comments Wide NATE, Stagger stance Therapeutic Exercises Other Exercises 2 Other Exercise Name Resisted ambulation: Fwd, side -stepping Resistance Green Neuro Re-Education Treatment Balance Activities Putting Details Standing putting Comments Focus on weight shift, trunk rotation, standing balance PT-OP-T Assessment and Plan Start: 12/21/21 17:31 Freq: Status: Active Protocol: Document 04/16/22 15:20 DCW (Rec: 04/16/22 15:59 DCW [id number]) Physical Therapy Assessment Goals Three Impairment Pt in high falls-risk category Short Term Goal (STG) Pt to improve 6MWT distance by at least 180' to 467' 01/19/22: baseline assessment: 217 ft in 6 min w/ LBQC. 02/09/22: 259 ft in 6 min w/ SBQC 3 pt gait maintaining 70- 72 bpm w/ metronome. 02/13/22: 189 ft in 6min w/qc decrease to 65 bpm metronome with 2 brief stand rests, need to sit in chair end 6MWT, decline head turn ask 30 ft further to bike, nodded yes when asked if dizzy. 03/12/22: Minimal change since eval STG Duration 05/12/22 Administrative Specialist Goal (LTG) Pt to increase Bajwa score by at least 7 points to 35/56 to demonstrate a decrease in his falls risk 01/23/22: Bajwa Balance Score 24 /56 today 03/12/22: scores 31/56 today LTG Duration 06/12/22 Two Impairment Pt exhibits R LE MMT measured between 2-/5 to 3+/5 Skilled Nursing Goal (LTG) Pt to improve R LE MMT in all planes to at least 3/5 01/23/22: no significant change noted with MMT today 03/12/22: no significant change noted with MMT today LTG Duration 06/12/22 One Impairment Pt does not participate in an appropriate home exercise program Short Term Goal (STG) Pt to be compliant with an appropriate HEP 01/23/22: patient indicated not doing exercises at home, though also had quizzical look on face when asked about exercises. Has previously been issued written HEP. STG Duration 05/12/22 Assessment Summary Assessment Pt continues to have difficulty with motivation, but appears to be doing better with balance and weight shifting. Physical Therapy Plan Frequency and Duration Frequency of Treatment 2x/Week Duration of Treatment Three months Plan of Care Start Date 03/12/22 Plan of Care End Date 06/12/22 Therapeutic Interventions Therapeutic Interventions Aquatic Therapy,Balance Training,Gait Training,Home Exercise Program,Joint Mobilizations,Manual Therapy, Neuromuscular Re-education, Patient/Caregiver Education, Self-Care/Home Management,Soft Tissue Mobilization, Therapeutic Activities, Therapeutic Exercises Next Visit Focus/Plan Next Note Type Treatment Note Next Visit Plan Continue: activities RLE wt acceptance for functional strengthening, Warm up bike, shuttle balance progress 2pt gait, fucntional strength and balance challenges.
--- NOTE | 2022-04-19 14:30 | PT.OTN ---
Current Diagnoses Ataxic gait (04/19/22) Other abnormalities of gait and mobility (04/19/22) Weakness (04/19/22) Personal history of transient ischemic attack (TIA), and cerebral infarction without residual deficits (04/19/22) History of falling (04/19/22) Physical Therapy Treatment Note PT-OP-A Visit Information Start: 12/21/21 17:31 Freq: Status: Active Protocol: Document 04/19/22 13:50 SP (Rec: 04/19/22 14:33 SP [id number]) Out-Patient Physical Therapy Visit Information Visit Information Visit Type Treatment Note Visit Start Time 13:50 Visit Stop Time 14:30 Total Visit Minutes 40 Visit Number 29 Number of CREW DISPATCHER Visits 1 Evaluation Information Evaluation Date 12/21/21 Precautions Precautions expressive aphasia PT-OP-B Current Condition Start: 12/21/21 17:31 Freq: Status: Active Protocol: Document 02/21/22 08:19 SAK (Rec: 02/21/22 08:59 SAK [id number]) Current Condition History of Current Condition Onset Date 2013 Current Complaints Decreased strength, stamina, near falls History of Current Condition Pt is a 66 year old male very well known to this clinic who comes in to skilled PT today with a recent decline in functional mobility, strength, activity tolerance, and balance. Pt had suffered a CVA in 2013, and has been seen multiple times at this clinic since that time to improve balance and activity tolerance . At baseline, pt has fairly significant right hemiparesis and is almost entirely non- verbal. 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 Pt's notes that pt has been experiencing some problems with his lab values, especially a decrease in sodium and iron. also notes that previously, pt would enjoy going out around the town, but now he just prefers to stay home and only moves around from his chair to the bathroom and back. During prior rounds of PT, it has been difficult to convince Sukh to participate in his HEP, however his notes that their son-in-law recently became a CREW DISPATCHER, so they are hopeful that he will be able to help direct a more comprehensive HEP. PT-OP-C Subjective Start: 12/21/21 17:31 Freq: Status: Active Protocol: Document 04/19/22 13:50 SP (Rec: 04/19/22 14:33 SP [id number]) OP-PT Subjective Patient Comments Patient Comments Pt nodded yes indicating doing well when asked, and shook head no when asked if concerns or L foot pain/issues . PT-OP-D Balance Start: 12/21/21 17:31 Freq: Status: Active Protocol: Document 03/12/22 15:15 DCW (Rec: 03/12/22 15:40 DCW [id number]) OP-PT Balance Assessment Sitting Balance Static Sitting Balance Ability Normal Dynamic Sitting Balance Ability Good Standing Balance Static Standing Balance Ability Fair Dynamic Standing Balance Ability Fair Balance Tests Bajwa Balance Test Bajwa Balance Test Score 31/56 Bajwa Impairment Rating 40 to 59% Impaired (Score 23- 33) Bajwa Balance Assessment Evaluation Sitting to Standing Ability Independent w/Hands Unsupported Stance Supervision- 2 minutes Sitting Unsupported, Feet on Floor Safely- 2 minutes Standing to Sitting Ability Assist, Control w/Hands Transfer Ability Supervision, Verbal Cues Unsupported Stance- Eyes Closed Supervision, 10 seconds Unsupported Stance- Eyes Open Assist to attain, 15 secs Reaching Forward Standing Safely, 5 inches Pick- Up Object From Floor Supervision Look Behind Shoulder - Standing Turns Sideways Only Turning 360 Degrees Turns slowly, but safely Unsupported Stance, Alternating Feet on Assist to Prevent Fall Stair Unsupported Tandem Stance Assist to Step-15 seconds Unilateral Leg Stance Lifts Leg/Unable to Hold Total Score Bajwa Total Score (out of 56 points) 31 Bajwa Impairment Rating 40 to 59% Impaired (Score 23- 33) Estrella Fall Scale Copyright Permission PT-OP-E Functional Tests Start: 12/21/21 17:31 Freq: Status: Active Protocol: Document 03/12/22 15:15 DCW (Rec: 03/12/22 15:40 DCW [id number]) Functional Tests 6 Minute Walk Test Distance 262 Device Used LBQC Comments 0.72 ft/sec Timed Up and Go (TUG) Score 40.55 Comments /c SPC TUG Impairment Rating 100% Impaired (Score 20) PT-OP-G Mobility & Gait Start: 12/21/21 17:31 Freq: Status: Active Protocol: Document 03/12/22 15:15 DCW (Rec: 03/12/22 15:40 DCW [id number]) OP Gait Assessment Gait Gait Assistance Required: Standby Assistance Distance (Feet) 262 Able to Maintain Weight Bearing Status Yes During Gait Assistive Devices Assistive Device Gait Belt,Straight Cane Orthotic/Prosthetic Devices or Brace: Yes Gait Deviations General Gait Pattern Ataxic,Decreased Stride Length ,Decreased Feet Clearance, Flexed Trunk,Lateral Trunk Lean,Step-to Gait Factors Limiting Gait Function Factors Limiting Gait Function Abnormal Tonal Influences, Decreased Activity Tolerance, Decreased Strength,Limited Range of Motion,Poor Balance, Poor Safety Awareness Comments Gait Comments Pt ambulates with a step-to gait pattern, keeps his right arm in a flexed, guarded position, slow meenakshi, left foot internally rotated PT-OP-M Strength Start: 12/21/21 17:31 Freq: Status: Active Protocol: Document 03/12/22 15:15 DCW (Rec: 03/12/22 15:40 DCW [id number]) Hip Strength Hip Manual Muscle Testing Right Flexion (L2) 2+ Poor+ Extension (S1) 3- Fair- Abduction 2- Poor- Adduction 3 Fair External Rotation 2 Poor Internal Rotation 2 Poor Left Flexion (L2) 4+ Good+ Extension (S1) 4+ Good+ Abduction 5 Normal Adduction 4+ Good+ External Rotation 4 Good Internal Rotation 4 Good Knee Strength Knee Manual Muscle Testing Right Flexion (S2) 2+ Poor+ Extension (L3) 3+ Fair+ Left Flexion (S2) 5 Normal Extension (L3) 5 Normal Ankle/Foot Strength Ankle and Foot Manual Muscle Testing Right Dorsiflexion (L4) 4 Good Plantarflexion (S1) 4 Good PT-OP-Q Treatments Start: 12/21/21 17:31 Freq: Status: Active Protocol: Document 04/19/22 13:50 SP (Rec: 04/19/22 14:33 SP [id number]) Cardio Equipment Recumbent Elliptical (Pyramid Screening Technology) Duration (Minutes) 5 Resistance 5 Seat Position 9 Other left UE/ralph LE's: 325steps Gym Equipment Shuttle Recovery Unilateral Squats Details B Resistance L 50#>37# 2x15 reps, R 37#> 25 # 11reps, 15 reps Shuttle Recovery Platform Stable Bilateral Squats Details small yellow ball between knees Resistance 75# Shuttle Recovery Platform Stable Reps/Time x20 Therapeutic Exercises Other Exercises 2 Other Exercise Name Resisted ambulation: Fwd, side -stepping Side bilateral Resistance Green TB at thighs Reps/Minutes 20 ft x2 laps Comments cued upright posture and foot clearance Gait Training Gait Activity gait Description 3 point pattern, cues for inc speed 2 pt gait Device Used LBQC, gait belt Level of Assistance CGA Surface firm, carpet and tile. Distance/Duration 170 ft, 30 ft x2 Treatment Focus 3 point pattern, increase speed Comments good effort full distance. Neuro Re-Education Treatment Balance Activities squat objects off floor Details WBOS squat stability Surface WBOS Equipment transfer to 2nd set pods x2 sets Comments CGA, stable, small pivot steps to place on 2nd pod. Putting Details Standing putting Surface firm Equipment putter, Reps/Duration 3 sets of 3 Comments Focus on weight shift, trunk rotation, standing balance, close SBA PT-OP-T Assessment and Plan Start: 12/21/21 17:31 Freq: Status: Active Protocol: Document 04/19/22 13:50 SP (Rec: 04/19/22 14:33 SP [id number]) Physical Therapy Assessment Goals Three Impairment Pt in high falls-risk category Short Term Goal (STG) Pt to improve 6MWT distance by at least 180' to 467' 01/19/22: baseline assessment: 217 ft in 6 min w/ LBQC. 02/09/22: 259 ft in 6 min w/ SBQC 3 pt gait maintaining 70- 72 bpm w/ metronome. 02/13/22: 189 ft in 6min w/qc decrease to 65 bpm metronome with 2 brief stand rests, need to sit in chair end 6MWT, decline head turn ask 30 ft further to bike, nodded yes when asked if dizzy. 03/12/22: Minimal change since eval STG Duration 05/12/22 Delinquent Tax Collection Assistant Goal (LTG) Pt to increase Bajwa score by at least 7 points to 35/56 to demonstrate a decrease in his falls risk 01/23/22: Bajwa Balance Score 24 /56 today 03/12/22: scores 31/56 today LTG Duration 06/12/22 Two Impairment Pt exhibits R LE MMT measured between 2-/5 to 3+/5 Prison Goal (LTG) Pt to improve R LE MMT in all planes to at least 3/5 01/23/22: no significant change noted with MMT today 03/12/22: no significant change noted with MMT today LTG Duration 06/12/22 One Impairment Pt does not participate in an appropriate home exercise program Short Term Goal (STG) Pt to be compliant with an approrpiate HEP 01/23/22: patient indicated not doing exercises at home, though also had quizzical look on face when asked about exercises. Has previously been issued written HEP. STG Duration 05/12/22 Assessment Summary Assessment Pt good effort throughout tx, needed to change sequencing of ther ex due to unavailability of bike begining tx decrease resistance to shuttle recovery due to tiring from gait and bike. Pt able balance squat for reposition of ball near floor unsupported, stable. Physical Therapy Plan Frequency and Duration Frequency of Treatment 2x/Week Duration of Treatment Three months Plan of Care Start Date 03/12/22 Plan of Care End Date 06/12/22 Therapeutic Interventions Therapeutic Interventions Aquatic Therapy,Balance Training,Gait Training,Home Exercise Program,Joint Mobilizations,Manual Therapy, Neuromuscular Re-education, Patient/Caregiver Education, Self-Care/Home Management,Soft Tissue Mobilization, Therapeutic Activities, Therapeutic Exercises Next Visit Focus/Plan Next Note Type Treatment Note Next Visit Plan Continue: activities RLE wt acceptance for functional strengthening, Warm up bike, shuttle balance, progress 2pt gait, fucntional strength and balance challenges.
--- NOTE | 2022-04-24 14:28 | PT.OTN ---
Current Diagnoses Ataxic gait (04/24/22) Other abnormalities of gait and mobility (04/24/22) Weakness (04/24/22) Personal history of transient ischemic attack (TIA), and cerebral infarction without residual deficits (04/24/22) History of falling (04/24/22) Physical Therapy Treatment Note PT-OP-A Visit Information Start: 12/21/21 17:31 Freq: Status: Active Protocol: Document 04/24/22 13:48 SP (Rec: 04/24/22 14:30 SP [id number]) Out-Patient Physical Therapy Visit Information Visit Information Visit Type Treatment Note Visit Start Time 13:48 Visit Stop Time 14:28 Total Visit Minutes 40 Visit Number 30 Number of PHOTOVOLTAIC TESTING TECHNICIAN Visits 2 Evaluation Information Evaluation Date 12/21/21 Precautions Precautions expressive aphasia PT-OP-B Current Condition Start: 12/21/21 17:31 Freq: Status: Active Protocol: Document 02/21/22 08:19 SAK (Rec: 02/21/22 08:59 SAK [id number]) Current Condition History of Current Condition Onset Date 2013 Current Complaints Decreased strength, stamina, near falls History of Current Condition Pt is a 66 year old male very well known to this clinic who comes in to skilled PT today with a recent decline in functional mobility, strength, activity tolerance, and balance. Pt had suffered a CVA in 2013, and has been seen multiple times at this clinic since that time to improve balance and activity tolerance . At baseline, pt has fairly significant right hemiparesis and is almost entirely non- verbal. 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 Pt's notes that pt has been experiencing some problems with his lab values, especially a decrease in sodium and iron. also notes that previously, pt would enjoy going out around the town, but now he just prefers to stay home and only moves around from his chair to the bathroom and back. During prior rounds of PT, it has been difficult to convince Sukh to participate in his HEP, however his notes that their son-in-law recently became a PHOTOVOLTAIC TESTING TECHNICIAN, so they are hopeful that he will be able to help direct a more comprehensive HEP. PT-OP-C Subjective Start: 12/21/21 17:31 Freq: Status: Active Protocol: Document 04/24/22 13:48 SP (Rec: 04/24/22 14:30 SP [id number]) OP-PT Subjective Patient Comments Patient Comments Pt nodded yes indicating doing well when asked. PT-OP-D Balance Start: 12/21/21 17:31 Freq: Status: Active Protocol: Document 03/12/22 15:15 DCW (Rec: 03/12/22 15:40 DCW [id number]) OP-PT Balance Assessment Sitting Balance Static Sitting Balance Ability Normal Dynamic Sitting Balance Ability Good Standing Balance Static Standing Balance Ability Fair Dynamic Standing Balance Ability Fair Balance Tests Bajwa Balance Test Bajwa Balance Test Score 31/56 Bajwa Impairment Rating 40 to 59% Impaired (Score 23- 33) Bajwa Balance Assessment Evaluation Sitting to Standing Ability Independent w/Hands Unsupported Stance Supervision- 2 minutes Sitting Unsupported, Feet on Floor Safely- 2 minutes Standing to Sitting Ability Assist, Control w/Hands Transfer Ability Supervision, Verbal Cues Unsupported Stance- Eyes Closed Supervision, 10 seconds Unsupported Stance- Eyes Open Assist to attain, 15 secs Reaching Forward Standing Safely, 5 inches Pick- Up Object From Floor Supervision Look Behind Shoulder - Standing Turns Sideways Only Turning 360 Degrees Turns slowly, but safely Unsupported Stance, Alternating Feet on Assist to Prevent Fall Stair Unsupported Tandem Stance Assist to Step-15 seconds Unilateral Leg Stance Lifts Leg/Unable to Hold Total Score Bajwa Total Score (out of 56 points) 31 Bajwa Impairment Rating 40 to 59% Impaired (Score 23- 33) Estrella Fall Scale Copyright Permission PT-OP-E Functional Tests Start: 12/21/21 17:31 Freq: Status: Active Protocol: Document 03/12/22 15:15 DCW (Rec: 03/12/22 15:40 DCW [id number]) Functional Tests 6 Minute Walk Test Distance 262 Device Used LBQC Comments 0.72 ft/sec Timed Up and Go (TUG) Score 40.55 Comments /c SPC TUG Impairment Rating 100% Impaired (Score 20) PT-OP-G Mobility & Gait Start: 12/21/21 17:31 Freq: Status: Active Protocol: Document 03/12/22 15:15 DCW (Rec: 03/12/22 15:40 DCW [id number]) OP Gait Assessment Gait Gait Assistance Required: Standby Assistance Distance (Feet) 262 Able to Maintain Weight Bearing Status Yes During Gait Assistive Devices Assistive Device Gait Belt,Straight Cane Orthotic/Prosthetic Devices or Brace: Yes Gait Deviations General Gait Pattern Ataxic,Decreased Stride Length ,Decreased Feet Clearance, Flexed Trunk,Lateral Trunk Lean,Step-to Gait Factors Limiting Gait Function Factors Limiting Gait Function Abnormal Tonal Influences, Decreased Activity Tolerance, Decreased Strength,Limited Range of Motion,Poor Balance, Poor Safety Awareness Comments Gait Comments Pt ambulates with a step-to gait pattern, keeps his right arm in a flexed, guarded position, slow meenakshi, left foot internally rotated PT-OP-M Strength Start: 12/21/21 17:31 Freq: Status: Active Protocol: Document 03/12/22 15:15 DCW (Rec: 03/12/22 15:40 DCW [id number]) Hip Strength Hip Manual Muscle Testing Right Flexion (L2) 2+ Poor+ Extension (S1) 3- Fair- Abduction 2- Poor- Adduction 3 Fair External Rotation 2 Poor Internal Rotation 2 Poor Left Flexion (L2) 4+ Good+ Extension (S1) 4+ Good+ Abduction 5 Normal Adduction 4+ Good+ External Rotation 4 Good Internal Rotation 4 Good Knee Strength Knee Manual Muscle Testing Right Flexion (S2) 2+ Poor+ Extension (L3) 3+ Fair+ Left Flexion (S2) 5 Normal Extension (L3) 5 Normal Ankle/Foot Strength Ankle and Foot Manual Muscle Testing Right Dorsiflexion (L4) 4 Good Plantarflexion (S1) 4 Good PT-OP-Q Treatments Start: 12/21/21 17:31 Freq: Status: Active Protocol: Document 04/24/22 13:48 SP (Rec: 04/24/22 14:30 SP [id number]) Cardio Equipment Recumbent Elliptical ([facility]) Duration (Minutes) 5 Resistance 5 Seat Position 9 Other left UE/ralph LE's: 325steps Gym Equipment Shuttle Recovery Unilateral Squats Details B Resistance L 50# 2x15 reps, R 37# 15reps, 15 reps Shuttle Recovery Platform Stable Reps/Time brief rest at 7th rep each LE, 14th reps LLE 2nd set Bilateral Squats Details small yellow ball between knees Resistance 75# Shuttle Recovery Platform Stable Reps/Time x20 Therapeutic Exercises Sitting Exercises STS Resistance SBA Reps/Minutes 5x Comments initial L UE support 1st reps, then without UE rest. Standing Exercises curb stepping Standing Exercise Name ascend/ descend using QC Resistance CG- Brandon GB and contact QC for stability Equipment Used 4 and 6 step (side by side for wider platform Reps/Minutes x3 reps Comments lead LLE asc, RLE descend step up/ down Standing Exercise Name 1. lateral step 6 up and overs, 2. neuro fwd Side bilateral Resistance AROM today Equipment Used Rail LUE 6 step, foam cushion Reps/Minutes x5 reps each LE lead up RLE, seated rest then lean LLE down Comments cued tall posture, LUE elbow straight/R quad fac ascend/ desc Gait Training Gait Activity gait Description 3 point pattern, cues for inc speed 2 pt gait Device Used LBQC, gait belt Level of Assistance CGA Surface firm, carpet and tile. Distance/Duration 70 ft, 30 ft x2 Treatment Focus 3 point pattern, increase speed Neuro Re-Education Treatment Balance Activities uneven surface balance Surface blue cushion Equipment QC at side PRN support, CGA GB Reps/Duration 2WBOS EC 10s no UE support, EO head turns no UE support PT-OP-T Assessment and Plan Start: 12/21/21 17:31 Freq: Status: Active Protocol: Document 04/24/22 13:48 SP (Rec: 04/24/22 14:30 SP [id number]) Physical Therapy Assessment Goals Three Impairment Pt in high falls-risk category Short Term Goal (STG) Pt to improve 6MWT distance by at least 180' to 467' 01/19/22: baseline assessment: 217 ft in 6 min w/ LBQC. 02/09/22: 259 ft in 6 min w/ SBQC 3 pt gait maintaining 70- 72 bpm w/ metronome. 02/13/22: 189 ft in 6min w/qc decrease to 65 bpm metronome with 2 brief stand rests, need to sit in chair end 6MWT, decline head turn ask 30 ft further to bike, nodded yes when asked if dizzy. 03/12/22: Minimal change since eval STG Duration 05/12/22 Facs Teacher Goal (LTG) Pt to increase Bajwa score by at least 7 points to 35/56 to demonstrate a decrease in his falls risk 01/23/22: Bajwa Balance Score 24 /56 today 03/12/22: scores 31/56 today LTG Duration 06/12/22 Two Impairment Pt exhibits R LE MMT measured between 2-/5 to 3+/5 Facs Teacher Goal (LTG) Pt to improve R LE MMT in all planes to at least 3/5 01/23/22: no significant change noted with MMT today 03/12/22: no significant change noted with MMT today LTG Duration 06/12/22 One Impairment Pt does not participate in an appropriate home exercise program Short Term Goal (STG) Pt to be compliant with an approrpiate HEP 01/23/22: patient indicated not doing exercises at home, though also had quizzical look on face when asked about exercises. Has previously been issued written HEP. STG Duration 05/12/22 Assessment Summary Assessment Pt able to tolerate increased resistance back to previous resistance on shuttle recovery . Able to complete STS with out UE support 4/5 reps, rest tx focused on LE strengthening through assimulation curb stepping with 4-6inch steps using QC for support to improve functional community, CGA only required for safety. Pt was able to static stand balance WBOS without UE support w/ head turns and up to 10s EC on uneven blue foam pad. Physical Therapy Plan Frequency and Duration Frequency of Treatment 2x/Week Duration of Treatment Three months Plan of Care Start Date 03/12/22 Plan of Care End Date 06/12/22 Therapeutic Interventions Therapeutic Interventions Aquatic Therapy,Balance Training,Gait Training,Home Exercise Program,Joint Mobilizations,Manual Therapy, Neuromuscular Re-education, Patient/Caregiver Education, Self-Care/Home Management,Soft Tissue Mobilization, Therapeutic Activities, Therapeutic Exercises Next Visit Focus/Plan Next Note Type Treatment Note Next Visit Plan Next tx: progress endurance gait (6MWT) and RLE strengthening. POC: Warm up bike, shuttle balance, progress 2pt gait, functional strength and balance challenges.
--- NOTE | 2022-04-26 15:58 | PT.OTN ---
Current Diagnoses Ataxic gait (04/26/22) Other abnormalities of gait and mobility (04/26/22) Weakness (04/26/22) Personal history of transient ischemic attack (TIA), and cerebral infarction without residual deficits (04/26/22) History of falling (04/26/22) Physical Therapy Treatment Note PT-OP-A Visit Information Start: 12/21/21 17:31 Freq: Status: Active Protocol: Document 04/26/22 15:15 DCW (Rec: 04/26/22 15:58 DCW [id number]) Out-Patient Physical Therapy Visit Information Visit Information Visit Type Treatment Note Visit Start Time 15:15 Visit Stop Time 16:00 Total Visit Minutes 45 Visit Number 31 Number of FIELD PROFESSIONAL Visits 0 Evaluation Information Evaluation Date 12/21/21 Precautions Precautions expressive aphasia PT-OP-B Current Condition Start: 12/21/21 17:31 Freq: Status: Active Protocol: Document 02/21/22 08:19 SAK (Rec: 02/21/22 08:59 SAK [id number]) Current Condition History of Current Condition Onset Date 2013 Current Complaints Decreased strength, stamina, near falls History of Current Condition Pt is a 66 year old male very well known to this clinic who comes in to skilled PT today with a recent decline in functional mobility, strength, activity tolerance, and balance. Pt had suffered a CVA in 2013, and has been seen multiple times at this clinic since that time to improve balance and activity tolerance . At baseline, pt has fairly significant right hemiparesis and is almost entirely non- verbal. 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 Pt's notes that pt has been experiencing some problems with his lab values, especially a decrease in sodium and iron. also notes that previously, pt would enjoy going out around the town, but now he just prefers to stay home and only moves around from his chair to the bathroom and back. During prior rounds of PT, it has been difficult to convince Sukh to participate in his HEP, however his notes that their son-in-law recently became a FIELD PROFESSIONAL, so they are hopeful that he will be able to help direct a more comprehensive HEP. PT-OP-C Subjective Start: 12/21/21 17:31 Freq: Status: Active Protocol: Document 04/26/22 15:15 DCW (Rec: 04/26/22 15:58 DCW [id number]) OP-PT Subjective Patient Comments Patient Comments Pt indicates he is feeling pretty good today. PT-OP-D Balance Start: 12/21/21 17:31 Freq: Status: Active Protocol: Document 03/12/22 15:15 DCW (Rec: 03/12/22 15:40 DCW [id number]) OP-PT Balance Assessment Sitting Balance Static Sitting Balance Ability Normal Dynamic Sitting Balance Ability Good Standing Balance Static Standing Balance Ability Fair Dynamic Standing Balance Ability Fair Balance Tests Bajwa Balance Test Bajwa Balance Test Score 31/56 Bajwa Impairment Rating 40 to 59% Impaired (Score 23- 33) Bajwa Balance Assessment Evaluation Sitting to Standing Ability Independent w/Hands Unsupported Stance Supervision- 2 minutes Sitting Unsupported, Feet on Floor Safely- 2 minutes Standing to Sitting Ability Assist, Control w/Hands Transfer Ability Supervision, Verbal Cues Unsupported Stance- Eyes Closed Supervision, 10 seconds Unsupported Stance- Eyes Open Assist to attain, 15 secs Reaching Forward Standing Safely, 5 inches Pick- Up Object From Floor Supervision Look Behind Shoulder - Standing Turns Sideways Only Turning 360 Degrees Turns slowly, but safely Unsupported Stance, Alternating Feet on Assist to Prevent Fall Stair Unsupported Tandem Stance Assist to Step-15 seconds Unilateral Leg Stance Lifts Leg/Unable to Hold Total Score Bajwa Total Score (out of 56 points) 31 Bajwa Impairment Rating 40 to 59% Impaired (Score 23- 33) Estrella Fall Scale Copyright Permission PT-OP-E Functional Tests Start: 12/21/21 17:31 Freq: Status: Active Protocol: Document 03/12/22 15:15 DCW (Rec: 03/12/22 15:40 DCW [id number]) Functional Tests 6 Minute Walk Test Distance 262 Device Used LBQC Comments 0.72 ft/sec Timed Up and Go (TUG) Score 40.55 Comments /c SPC TUG Impairment Rating 100% Impaired (Score 20) PT-OP-G Mobility & Gait Start: 12/21/21 17:31 Freq: Status: Active Protocol: Document 03/12/22 15:15 DCW (Rec: 03/12/22 15:40 DCW [id number]) OP Gait Assessment Gait Gait Assistance Required: Standby Assistance Distance (Feet) 262 Able to Maintain Weight Bearing Status Yes During Gait Assistive Devices Assistive Device Gait Belt,Straight Cane Orthotic/Prosthetic Devices or Brace: Yes Gait Deviations General Gait Pattern Ataxic,Decreased Stride Length ,Decreased Feet Clearance, Flexed Trunk,Lateral Trunk Lean,Step-to Gait Factors Limiting Gait Function Factors Limiting Gait Function Abnormal Tonal Influences, Decreased Activity Tolerance, Decreased Strength,Limited Range of Motion,Poor Balance, Poor Safety Awareness Comments Gait Comments Pt ambulates with a step-to gait pattern, keeps his right arm in a flexed, guarded position, slow meenakshi, left foot internally rotated PT-OP-M Strength Start: 12/21/21 17:31 Freq: Status: Active Protocol: Document 03/12/22 15:15 DCW (Rec: 03/12/22 15:40 DCW [id number]) Hip Strength Hip Manual Muscle Testing Right Flexion (L2) 2+ Poor+ Extension (S1) 3- Fair- Abduction 2- Poor- Adduction 3 Fair External Rotation 2 Poor Internal Rotation 2 Poor Left Flexion (L2) 4+ Good+ Extension (S1) 4+ Good+ Abduction 5 Normal Adduction 4+ Good+ External Rotation 4 Good Internal Rotation 4 Good Knee Strength Knee Manual Muscle Testing Right Flexion (S2) 2+ Poor+ Extension (L3) 3+ Fair+ Left Flexion (S2) 5 Normal Extension (L3) 5 Normal Ankle/Foot Strength Ankle and Foot Manual Muscle Testing Right Dorsiflexion (L4) 4 Good Plantarflexion (S1) 4 Good PT-OP-Q Treatments Start: 12/21/21 17:31 Freq: Status: Active Protocol: Document 04/26/22 15:15 DCW (Rec: 04/26/22 15:58 DCW [id number]) Cardio Equipment Recumbent Elliptical ([employer]) Duration (Minutes) 5 Resistance 5 Seat Position 10 Other left UE/ralph LE's: 332 steps Gym Equipment Shuttle Recovery Unilateral Squats Details B Resistance L 50#, R 37# Shuttle Recovery Platform Stable Reps/Time x15 Bilateral Squats Details small yellow ball between knees Resistance 75# Shuttle Recovery Platform Stable Reps/Time x20 Shuttle Balance red clips Details balance fwd/bck Comments Wide NATE, Stagger stance Therapeutic Exercises Other Exercises 2 Other Exercise Name Resisted ambulation: Fwd, side -stepping Side bilateral Resistance Green TB at thighs Reps/Minutes 20 ft x2 laps Comments cued upright posture and foot clearance Neuro Re-Education Treatment Balance Activities Putting Details Standing putting Surface firm Equipment putter, Reps/Duration 3 sets of 3 Comments Focus on weight shift, trunk rotation, standing balance, close SBA PT-OP-T Assessment and Plan Start: 12/21/21 17:31 Freq: Status: Active Protocol: Document 04/26/22 15:15 DCW (Rec: 04/26/22 15:58 DCW [id number]) Physical Therapy Assessment Goals Three Impairment Pt in high falls-risk category Short Term Goal (STG) Pt to improve 6MWT distance by at least 180' to 467' 01/19/22: baseline assessment: 217 ft in 6 min w/ LBQC. 02/09/22: 259 ft in 6 min w/ SBQC 3 pt gait maintaining 70- 72 bpm w/ metronome. 02/13/22: 189 ft in 6min w/qc decrease to 65 bpm metronome with 2 brief stand rests, need to sit in chair end 6MWT, decline head turn ask 30 ft further to bike, nodded yes when asked if dizzy. 03/12/22: Minimal change since eval STG Duration 05/12/22 Mcc Goal (LTG) Pt to increase Bajwa score by at least 7 points to 35/56 to demonstrate a decrease in his falls risk 01/23/22: Bajwa Balance Score 24 /56 today 03/12/22: scores 31/56 today LTG Duration 06/12/22 Two Impairment Pt exhibits R LE MMT measured between 2-/5 to 3+/5 Monkey Trainer Goal (LTG) Pt to improve R LE MMT in all planes to at least 3/5 01/23/22: no significant change noted with MMT today 03/12/22: no significant change noted with MMT today LTG Duration 06/12/22 One Impairment Pt does not participate in an appropriate home exercise program Short Term Goal (STG) Pt to be compliant with an approrpiate HEP 01/23/22: patient indicated not doing exercises at home, though also had quizzical look on face when asked about exercises. Has previously been issued written HEP. STG Duration 05/12/22 Assessment Summary Assessment Pt continues to show some slight improvement with stability and weight-shift during putting, did not need any rest breaks on leg press today. Physical Therapy Plan Frequency and Duration Frequency of Treatment 2x/Week Duration of Treatment Three months Plan of Care Start Date 03/12/22 Plan of Care End Date 06/12/22 Therapeutic Interventions Therapeutic Interventions Aquatic Therapy,Balance Training,Gait Training,Home Exercise Program,Joint Mobilizations,Manual Therapy, Neuromuscular Re-education, Patient/Caregiver Education, Self-Care/Home Management,Soft Tissue Mobilization, Therapeutic Activities, Therapeutic Exercises Next Visit Focus/Plan Next Note Type Treatment Note Next Visit Plan Next tx: progress endurance gait (6MWT) and RLE strengthening. POC: Warm up bike, shuttle balance, progress 2pt gait, functional strength and balance challenges.
--- NOTE | 2022-04-30 16:00 | PT.OTN ---
Current Diagnoses Ataxic gait (04/30/22) Other abnormalities of gait and mobility (04/30/22) Weakness (04/30/22) Personal history of transient ischemic attack (TIA), and cerebral infarction without residual deficits (04/30/22) History of falling (04/30/22) Physical Therapy Treatment Note PT-OP-A Visit Information Start: 12/21/21 17:31 Freq: Status: Active Protocol: Document 04/30/22 15:27 DCW (Rec: 04/30/22 16:00 DCW [id number]) Out-Patient Physical Therapy Visit Information Visit Information Visit Type Treatment Note Visit Note Arrived 12 minutes late Visit Start Time 15:27 Visit Stop Time 16:00 Total Visit Minutes 33 Visit Number 32 Number of LOOM CHANGER Visits 0 Evaluation Information Evaluation Date 12/21/21 Precautions Precautions expressive aphasia PT-OP-B Current Condition Start: 12/21/21 17:31 Freq: Status: Active Protocol: Document 02/21/22 08:19 SAK (Rec: 02/21/22 08:59 SAK [id number]) Current Condition History of Current Condition Onset Date 2013 Current Complaints Decreased strength, stamina, near falls History of Current Condition Pt is a 66 year old male very well known to this clinic who comes in to skilled PT today with a recent decline in functional mobility, strength, activity tolerance, and balance. Pt had suffered a CVA in 2013, and has been seen multiple times at this clinic since that time to improve balance and activity tolerance . At baseline, pt has fairly significant right hemiparesis and is almost entirely non- verbal. 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 Pt's notes that pt has been experiencing some problems with his lab values, especially a decrease in sodium and iron. also notes that previously, pt would enjoy going out around the town, but now he just prefers to stay home and only moves around from his chair to the bathroom and back. During prior rounds of PT, it has been difficult to convince Sukh to participate in his HEP, however his notes that their son-in-law recently became a LOOM CHANGER, so they are hopeful that he will be able to help direct a more comprehensive HEP. PT-OP-C Subjective Start: 12/21/21 17:31 Freq: Status: Active Protocol: Document 04/30/22 15:27 DCW (Rec: 04/30/22 16:00 DCW [id number]) OP-PT Subjective Patient Comments Patient Comments Pt indicates he is feeling pretty good today. PT-OP-D Balance Start: 12/21/21 17:31 Freq: Status: Active Protocol: Document 03/12/22 15:15 DCW (Rec: 03/12/22 15:40 DCW [id number]) OP-PT Balance Assessment Sitting Balance Static Sitting Balance Ability Normal Dynamic Sitting Balance Ability Good Standing Balance Static Standing Balance Ability Fair Dynamic Standing Balance Ability Fair Balance Tests Bajwa Balance Test Bajwa Balance Test Score 31/56 Bajwa Impairment Rating 40 to 59% Impaired (Score 23- 33) Bajwa Balance Assessment Evaluation Sitting to Standing Ability Independent w/Hands Unsupported Stance Supervision- 2 minutes Sitting Unsupported, Feet on Floor Safely- 2 minutes Standing to Sitting Ability Assist, Control w/Hands Transfer Ability Supervision, Verbal Cues Unsupported Stance- Eyes Closed Supervision, 10 seconds Unsupported Stance- Eyes Open Assist to attain, 15 secs Reaching Forward Standing Safely, 5 inches Pick- Up Object From Floor Supervision Look Behind Shoulder - Standing Turns Sideways Only Turning 360 Degrees Turns slowly, but safely Unsupported Stance, Alternating Feet on Assist to Prevent Fall Stair Unsupported Tandem Stance Assist to Step-15 seconds Unilateral Leg Stance Lifts Leg/Unable to Hold Total Score Bajwa Total Score (out of 56 points) 31 Bajwa Impairment Rating 40 to 59% Impaired (Score 23- 33) Estrella Fall Scale Copyright Permission PT-OP-E Functional Tests Start: 12/21/21 17:31 Freq: Status: Active Protocol: Document 03/12/22 15:15 DCW (Rec: 03/12/22 15:40 DCW [id number]) Functional Tests 6 Minute Walk Test Distance 262 Device Used LBQC Comments 0.72 ft/sec Timed Up and Go (TUG) Score 40.55 Comments /c SPC TUG Impairment Rating 100% Impaired (Score 20) PT-OP-G Mobility & Gait Start: 12/21/21 17:31 Freq: Status: Active Protocol: Document 03/12/22 15:15 DCW (Rec: 03/12/22 15:40 DCW [id number]) OP Gait Assessment Gait Gait Assistance Required: Standby Assistance Distance (Feet) 262 Able to Maintain Weight Bearing Status Yes During Gait Assistive Devices Assistive Device Gait Belt,Straight Cane Orthotic/Prosthetic Devices or Brace: Yes Gait Deviations General Gait Pattern Ataxic,Decreased Stride Length ,Decreased Feet Clearance, Flexed Trunk,Lateral Trunk Lean,Step-to Gait Factors Limiting Gait Function Factors Limiting Gait Function Abnormal Tonal Influences, Decreased Activity Tolerance, Decreased Strength,Limited Range of Motion,Poor Balance, Poor Safety Awareness Comments Gait Comments Pt ambulates with a step-to gait pattern, keeps his right arm in a flexed, guarded position, slow meenakshi, left foot internally rotated PT-OP-M Strength Start: 12/21/21 17:31 Freq: Status: Active Protocol: Document 03/12/22 15:15 DCW (Rec: 03/12/22 15:40 DCW [id number]) Hip Strength Hip Manual Muscle Testing Right Flexion (L2) 2+ Poor+ Extension (S1) 3- Fair- Abduction 2- Poor- Adduction 3 Fair External Rotation 2 Poor Internal Rotation 2 Poor Left Flexion (L2) 4+ Good+ Extension (S1) 4+ Good+ Abduction 5 Normal Adduction 4+ Good+ External Rotation 4 Good Internal Rotation 4 Good Knee Strength Knee Manual Muscle Testing Right Flexion (S2) 2+ Poor+ Extension (L3) 3+ Fair+ Left Flexion (S2) 5 Normal Extension (L3) 5 Normal Ankle/Foot Strength Ankle and Foot Manual Muscle Testing Right Dorsiflexion (L4) 4 Good Plantarflexion (S1) 4 Good PT-OP-Q Treatments Start: 12/21/21 17:31 Freq: Status: Active Protocol: Document 04/30/22 15:27 DCW (Rec: 04/30/22 16:00 DCW [id number]) Cardio Equipment Recumbent Elliptical (Biodex) Duration (Minutes) 5 Resistance 5 Seat Position 10 Other left UE/ralph LE's: 387 steps Gym Equipment Shuttle Recovery Unilateral Squats Details B Resistance L 50#, R 37# Shuttle Recovery Platform Stable Reps/Time x15 Bilateral Squats Details small yellow ball between knees Resistance 75# Shuttle Recovery Platform Stable Reps/Time x20 Shuttle Balance red clips Details balance fwd/bck Comments Wide NATE, Stagger stance Therapeutic Exercises Other Exercises 2 Other Exercise Name Resisted ambulation: Fwd, side -stepping Side bilateral Resistance Green TB at thighs Reps/Minutes 20 ft x2 laps Comments cued upright posture and foot clearance Neuro Re-Education Treatment Balance Activities uneven surface balance Surface blue cushion Equipment QC at side PRN support, CGA GB Reps/Duration 2WBOS EC 10s no UE support, EO head turns no UE support PT-OP-T Assessment and Plan Start: 12/21/21 17:31 Freq: Status: Active Protocol: Document 04/30/22 15:27 DCW (Rec: 04/30/22 16:00 DCW [id number]) Physical Therapy Assessment Goals Three Impairment Pt in high falls-risk category Short Term Goal (STG) Pt to improve 6MWT distance by at least 180' to 467' 01/19/22: baseline assessment: 217 ft in 6 min w/ LBQC. 02/09/22: 259 ft in 6 min w/ SBQC 3 pt gait maintaining 70- 72 bpm w/ metronome. 02/13/22: 189 ft in 6min w/qc decrease to 65 bpm metronome with 2 brief stand rests, need to sit in chair end 6MWT, decline head turn ask 30 ft further to bike, nodded yes when asked if dizzy. 03/12/22: Minimal change since eval STG Duration 05/12/22 Rolloff Driver Goal (LTG) Pt to increase Bajwa score by at least 7 points to 35/56 to demonstrate a decrease in his falls risk 01/23/22: Bajwa Balance Score 24 /56 today 03/12/22: scores 31/56 today LTG Duration 06/12/22 Two Impairment Pt exhibits R LE MMT measured between 2-/5 to 3+/5 Rolloff Driver Goal (LTG) Pt to improve R LE MMT in all planes to at least 3/5 01/23/22: no significant change noted with MMT today 03/12/22: no significant change noted with MMT today LTG Duration 06/12/22 One Impairment Pt does not participate in an appropriate home exercise program Short Term Goal (STG) Pt to be compliant with an approrpiate HEP 01/23/22: patient indicated not doing exercises at home, though also had quizzical look on face when asked about exercises. Has previously been issued written HEP. STG Duration 05/12/22 Assessment Summary Assessment Pt late today, limited ability to fit in full workout. Did well with activities performed , increased activity tolerance . Physical Therapy Plan Frequency and Duration Frequency of Treatment 2x/Week Duration of Treatment Three months Plan of Care Start Date 03/12/22 Plan of Care End Date 06/12/22 Therapeutic Interventions Therapeutic Interventions Aquatic Therapy,Balance Training,Gait Training,Home Exercise Program,Joint Mobilizations,Manual Therapy, Neuromuscular Re-education, Patient/Caregiver Education, Self-Care/Home Management,Soft Tissue Mobilization, Therapeutic Activities, Therapeutic Exercises Next Visit Focus/Plan Next Note Type Treatment Note Next Visit Plan Next tx: progress endurance gait (6MWT) and RLE strengthening. POC: Warm up bike, shuttle balance, progress 2pt gait, functional strength and balance challenges.
--- NOTE | 2022-05-03 15:57 | PT.OTN ---
Current Diagnoses Ataxic gait (05/03/22) Other abnormalities of gait and mobility (05/03/22) Weakness (05/03/22) Personal history of transient ischemic attack (TIA), and cerebral infarction without residual deficits (05/03/22) History of falling (05/03/22) Physical Therapy Treatment Note PT-OP-A Visit Information Start: 12/21/21 17:31 Freq: Status: Active Protocol: Document 05/03/22 15:15 DCW (Rec: 05/03/22 15:57 DCW [id number]) Out-Patient Physical Therapy Visit Information Visit Information Visit Type Treatment Note Visit Start Time 15:15 Visit Stop Time 16:00 Total Visit Minutes 45 Visit Number 33 Number of THERMODYNAMICS TEACHER Visits 0 Evaluation Information Evaluation Date 12/21/21 Precautions Precautions expressive aphasia PT-OP-B Current Condition Start: 12/21/21 17:31 Freq: Status: Active Protocol: Document 02/21/22 08:19 SAK (Rec: 02/21/22 08:59 SAK [id number]) Current Condition History of Current Condition Onset Date 2013 Current Complaints Decreased strength, stamina, near falls History of Current Condition Pt is a 66 year old male very well known to this clinic who comes in to skilled PT today with a recent decline in functional mobility, strength, activity tolerance, and balance. Pt had suffered a CVA in 2013, and has been seen multiple times at this clinic since that time to improve balance and activity tolerance . At baseline, pt has fairly significant right hemiparesis and is almost entirely non- verbal. 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 Pt's notes that pt has been experiencing some problems with his lab values, especially a decrease in sodium and iron. also notes that previously, pt would enjoy going out around the town, but now he just prefers to stay home and only moves around from his chair to the bathroom and back. During prior rounds of PT, it has been difficult to convince Sukh to participate in his HEP, however his notes that their son-in-law recently became a THERMODYNAMICS TEACHER, so they are hopeful that he will be able to help direct a more comprehensive HEP. PT-OP-C Subjective Start: 12/21/21 17:31 Freq: Status: Active Protocol: Document 05/03/22 15:15 DCW (Rec: 05/03/22 15:57 DCW [id number]) OP-PT Subjective Patient Comments Patient Comments Pt indicates he is feeling pretty good today, denies continuing pain in his toe. PT-OP-D Balance Start: 12/21/21 17:31 Freq: Status: Active Protocol: Document 03/12/22 15:15 DCW (Rec: 03/12/22 15:40 DCW [id number]) OP-PT Balance Assessment Sitting Balance Static Sitting Balance Ability Normal Dynamic Sitting Balance Ability Good Standing Balance Static Standing Balance Ability Fair Dynamic Standing Balance Ability Fair Balance Tests Bajwa Balance Test Bajwa Balance Test Score 31/56 Bajwa Impairment Rating 40 to 59% Impaired (Score 23- 33) Bajwa Balance Assessment Evaluation Sitting to Standing Ability Independent w/Hands Unsupported Stance Supervision- 2 minutes Sitting Unsupported, Feet on Floor Safely- 2 minutes Standing to Sitting Ability Assist, Control w/Hands Transfer Ability Supervision, Verbal Cues Unsupported Stance- Eyes Closed Supervision, 10 seconds Unsupported Stance- Eyes Open Assist to attain, 15 secs Reaching Forward Standing Safely, 5 inches Pick- Up Object From Floor Supervision Look Behind Shoulder - Standing Turns Sideways Only Turning 360 Degrees Turns slowly, but safely Unsupported Stance, Alternating Feet on Assist to Prevent Fall Stair Unsupported Tandem Stance Assist to Step-15 seconds Unilateral Leg Stance Lifts Leg/Unable to Hold Total Score Bajwa Total Score (out of 56 points) 31 Bajwa Impairment Rating 40 to 59% Impaired (Score 23- 33) Estrella Fall Scale Copyright Permission PT-OP-E Functional Tests Start: 12/21/21 17:31 Freq: Status: Active Protocol: Document 03/12/22 15:15 DCW (Rec: 03/12/22 15:40 DCW [id number]) Functional Tests 6 Minute Walk Test Distance 262 Device Used LBQC Comments 0.72 ft/sec Timed Up and Go (TUG) Score 40.55 Comments /c SPC TUG Impairment Rating 100% Impaired (Score 20) PT-OP-G Mobility & Gait Start: 12/21/21 17:31 Freq: Status: Active Protocol: Document 03/12/22 15:15 DCW (Rec: 03/12/22 15:40 DCW [id number]) OP Gait Assessment Gait Gait Assistance Required: Standby Assistance Distance (Feet) 262 Able to Maintain Weight Bearing Status Yes During Gait Assistive Devices Assistive Device Gait Belt,Straight Cane Orthotic/Prosthetic Devices or Brace: Yes Gait Deviations General Gait Pattern Ataxic,Decreased Stride Length ,Decreased Feet Clearance, Flexed Trunk,Lateral Trunk Lean,Step-to Gait Factors Limiting Gait Function Factors Limiting Gait Function Abnormal Tonal Influences, Decreased Activity Tolerance, Decreased Strength,Limited Range of Motion,Poor Balance, Poor Safety Awareness Comments Gait Comments Pt ambulates with a step-to gait pattern, keeps his right arm in a flexed, guarded position, slow meenakshi, left foot internally rotated PT-OP-M Strength Start: 12/21/21 17:31 Freq: Status: Active Protocol: Document 03/12/22 15:15 DCW (Rec: 03/12/22 15:40 DCW [id number]) Hip Strength Hip Manual Muscle Testing Right Flexion (L2) 2+ Poor+ Extension (S1) 3- Fair- Abduction 2- Poor- Adduction 3 Fair External Rotation 2 Poor Internal Rotation 2 Poor Left Flexion (L2) 4+ Good+ Extension (S1) 4+ Good+ Abduction 5 Normal Adduction 4+ Good+ External Rotation 4 Good Internal Rotation 4 Good Knee Strength Knee Manual Muscle Testing Right Flexion (S2) 2+ Poor+ Extension (L3) 3+ Fair+ Left Flexion (S2) 5 Normal Extension (L3) 5 Normal Ankle/Foot Strength Ankle and Foot Manual Muscle Testing Right Dorsiflexion (L4) 4 Good Plantarflexion (S1) 4 Good PT-OP-Q Treatments Start: 12/21/21 17:31 Freq: Status: Active Protocol: Document 05/03/22 15:15 DCW (Rec: 05/03/22 15:57 DCW [id number]) Cardio Equipment Recumbent Elliptical ([employer]) Duration (Minutes) 5 Resistance 5 Seat Position 10 Other left UE/ralph LE's: 387 steps Gym Equipment Shuttle Recovery Unilateral Squats Details B Resistance L 50#, R 37# Shuttle Recovery Platform Stable Reps/Time x15 Bilateral Squats Details small yellow ball between knees Resistance 75# Shuttle Recovery Platform Stable Reps/Time x20 Shuttle Balance red clips Details balance fwd/bck Comments Wide NATE, Stagger stance Therapeutic Exercises Other Exercises 2 Other Exercise Name Resisted ambulation: Fwd, side -stepping Side bilateral Resistance Green TB at thighs Reps/Minutes 20 ft x2 laps Comments cued upright posture and foot clearance PT-OP-T Assessment and Plan Start: 12/21/21 17:31 Freq: Status: Active Protocol: Document 05/03/22 15:15 DCW (Rec: 05/03/22 15:57 DCW [id number]) Physical Therapy Assessment Goals Three Impairment Pt in high falls-risk category Short Term Goal (STG) Pt to improve 6MWT distance by at least 180' to 467' 01/19/22: baseline assessment: 217 ft in 6 min w/ LBQC. 02/09/22: 259 ft in 6 min w/ SBQC 3 pt gait maintaining 70- 72 bpm w/ metronome. 02/13/22: 189 ft in 6min w/qc decrease to 65 bpm metronome with 2 brief stand rests, need to sit in chair end 6MWT, decline head turn ask 30 ft further to bike, nodded yes when asked if dizzy. 03/12/22: Minimal change since eval STG Duration 05/12/22 Consumer Affairs Manager Goal (LTG) Pt to increase Bajwa score by at least 7 points to 35/56 to demonstrate a decrease in his falls risk 01/23/22: Bajwa Balance Score 24 /56 today 03/12/22: scores 31/56 today LTG Duration 06/12/22 Two Impairment Pt exhibits R LE MMT measured between 2-/5 to 3+/5 Consumer Affairs Manager Goal (LTG) Pt to improve R LE MMT in all planes to at least 3/5 01/23/22: no significant change noted with MMT today 03/12/22: no significant change noted with MMT today LTG Duration 06/12/22 One Impairment Pt does not participate in an appropriate home exercise program Short Term Goal (STG) Pt to be compliant with an appropriate HEP 01/23/22: patient indicated not doing exercises at home, though also had quizzical look on face when asked about exercises. Has previously been issued written HEP. STG Duration 05/12/22 Assessment Summary Assessment Pt tolerated treatment well today, good effort on leg press. Physical Therapy Plan Frequency and Duration Frequency of Treatment 2x/Week Duration of Treatment Three months Plan of Care Start Date 03/12/22 Plan of Care End Date 06/12/22 Therapeutic Interventions Therapeutic Interventions Aquatic Therapy,Balance Training,Gait Training,Home Exercise Program,Joint Mobilizations,Manual Therapy, Neuromuscular Re-education, Patient/Caregiver Education, Self-Care/Home Management,Soft Tissue Mobilization, Therapeutic Activities, Therapeutic Exercises Next Visit Focus/Plan Next Note Type Treatment Note Next Visit Plan Next tx: progress endurance gait (6MWT) and RLE strengthening. POC: Warm up bike, shuttle balance, progress 2pt gait, functional strength and balance challenges.
--- NOTE | 2022-05-08 15:14 | PT.OTN ---
Current Diagnoses Ataxic gait (05/08/22) Other abnormalities of gait and mobility (05/08/22) Weakness (05/08/22) Personal history of transient ischemic attack (TIA), and cerebral infarction without residual deficits (05/08/22) History of falling (05/08/22) Physical Therapy Treatment Note PT-OP-A Visit Information Start: 12/21/21 17:31 Freq: Status: Active Protocol: Document 05/08/22 14:33 DCW (Rec: 05/08/22 15:13 DCW [id number]) Out-Patient Physical Therapy Visit Information Visit Information Visit Type Treatment Note Visit Start Time 14:33 Visit Stop Time 15:15 Total Visit Minutes 42 Visit Number 34 Number of DELIVERY COORDINATOR Visits 0 Evaluation Information Evaluation Date 12/21/21 Precautions Precautions expressive aphasia PT-OP-B Current Condition Start: 12/21/21 17:31 Freq: Status: Active Protocol: Document 02/21/22 08:19 SAK (Rec: 02/21/22 08:59 SAK [id number]) Current Condition History of Current Condition Onset Date 2013 Current Complaints Decreased strength, stamina, near falls History of Current Condition Pt is a 66 year old male very well known to this clinic who comes in to skilled PT today with a recent decline in functional mobility, strength, activity tolerance, and balance. Pt had suffered a CVA in 2013, and has been seen multiple times at this clinic since that time to improve balance and activity tolerance . At baseline, pt has fairly significant right hemiparesis and is almost entirely non- verbal. 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 Pt's notes that pt has been experiencing some problems with his lab values, especially a decrease in sodium and iron. also notes that previously, pt would enjoy going out around the town, but now he just prefers to stay home and only moves around from his chair to the bathroom and back. During prior rounds of PT, it has been difficult to convince Sukh to participate in his HEP, however his notes that their son-in-law recently became a DELIVERY COORDINATOR, so they are hopeful that he will be able to help direct a more comprehensive HEP. PT-OP-C Subjective Start: 12/21/21 17:31 Freq: Status: Active Protocol: Document 05/08/22 14:33 DCW (Rec: 05/08/22 15:14 DCW [id number]) OP-PT Subjective Patient Comments Patient Comments Pt indicates he is doing well today. PT-OP-D Balance Start: 12/21/21 17:31 Freq: Status: Active Protocol: Document 03/12/22 15:15 DCW (Rec: 03/12/22 15:40 DCW [id number]) OP-PT Balance Assessment Sitting Balance Static Sitting Balance Ability Normal Dynamic Sitting Balance Ability Good Standing Balance Static Standing Balance Ability Fair Dynamic Standing Balance Ability Fair Balance Tests Bajwa Balance Test Bajwa Balance Test Score 31/56 Bajwa Impairment Rating 40 to 59% Impaired (Score 23- 33) Bajwa Balance Assessment Evaluation Sitting to Standing Ability Independent w/Hands Unsupported Stance Supervision- 2 minutes Sitting Unsupported, Feet on Floor Safely- 2 minutes Standing to Sitting Ability Assist, Control w/Hands Transfer Ability Supervision, Verbal Cues Unsupported Stance- Eyes Closed Supervision, 10 seconds Unsupported Stance- Eyes Open Assist to attain, 15 secs Reaching Forward Standing Safely, 5 inches Pick- Up Object From Floor Supervision Look Behind Shoulder - Standing Turns Sideways Only Turning 360 Degrees Turns slowly, but safely Unsupported Stance, Alternating Feet on Assist to Prevent Fall Stair Unsupported Tandem Stance Assist to Step-15 seconds Unilateral Leg Stance Lifts Leg/Unable to Hold Total Score Bajwa Total Score (out of 56 points) 31 Bajwa Impairment Rating 40 to 59% Impaired (Score 23- 33) Estrella Fall Scale Copyright Permission PT-OP-E Functional Tests Start: 12/21/21 17:31 Freq: Status: Active Protocol: Document 03/12/22 15:15 DCW (Rec: 03/12/22 15:40 DCW [id number]) Functional Tests 6 Minute Walk Test Distance 262 Device Used LBQC Comments 0.72 ft/sec Timed Up and Go (TUG) Score 40.55 Comments /c SPC TUG Impairment Rating 100% Impaired (Score 20) PT-OP-G Mobility & Gait Start: 12/21/21 17:31 Freq: Status: Active Protocol: Document 03/12/22 15:15 DCW (Rec: 03/12/22 15:40 DCW [id number]) OP Gait Assessment Gait Gait Assistance Required: Standby Assistance Distance (Feet) 262 Able to Maintain Weight Bearing Status Yes During Gait Assistive Devices Assistive Device Gait Belt,Straight Cane Orthotic/Prosthetic Devices or Brace: Yes Gait Deviations General Gait Pattern Ataxic,Decreased Stride Length ,Decreased Feet Clearance, Flexed Trunk,Lateral Trunk Lean,Step-to Gait Factors Limiting Gait Function Factors Limiting Gait Function Abnormal Tonal Influences, Decreased Activity Tolerance, Decreased Strength,Limited Range of Motion,Poor Balance, Poor Safety Awareness Comments Gait Comments Pt ambulates with a step-to gait pattern, keeps his right arm in a flexed, guarded position, slow meenakshi, left foot internally rotated PT-OP-M Strength Start: 12/21/21 17:31 Freq: Status: Active Protocol: Document 03/12/22 15:15 DCW (Rec: 03/12/22 15:40 DCW [id number]) Hip Strength Hip Manual Muscle Testing Right Flexion (L2) 2+ Poor+ Extension (S1) 3- Fair- Abduction 2- Poor- Adduction 3 Fair External Rotation 2 Poor Internal Rotation 2 Poor Left Flexion (L2) 4+ Good+ Extension (S1) 4+ Good+ Abduction 5 Normal Adduction 4+ Good+ External Rotation 4 Good Internal Rotation 4 Good Knee Strength Knee Manual Muscle Testing Right Flexion (S2) 2+ Poor+ Extension (L3) 3+ Fair+ Left Flexion (S2) 5 Normal Extension (L3) 5 Normal Ankle/Foot Strength Ankle and Foot Manual Muscle Testing Right Dorsiflexion (L4) 4 Good Plantarflexion (S1) 4 Good PT-OP-Q Treatments Start: 12/21/21 17:31 Freq: Status: Active Protocol: Document 05/08/22 14:33 DCW (Rec: 05/08/22 15:13 DCW [id number]) Cardio Equipment Recumbent Elliptical ([email or web address]) Duration (Minutes) 5 Resistance 5 Seat Position 10 Other left UE/ralph LE's: 321 steps Gym Equipment Shuttle Recovery Unilateral Squats Details B Resistance L 50#, R 37# Shuttle Recovery Platform Stable Reps/Time x15 Bilateral Squats Details small yellow ball between knees Resistance 75# Shuttle Recovery Platform Stable Reps/Time x20 Shuttle Balance red clips Details balance fwd/bck Comments Wide NATE, Stagger stance Therapeutic Exercises Other Exercises 2 Other Exercise Name Resisted ambulation: Fwd, side -stepping Side bilateral Resistance Green TB at thighs Reps/Minutes 20 ft x2 laps Comments cued upright posture and foot clearance Neuro Re-Education Treatment Balance Activities uneven surface balance Surface blue cushion Equipment // bars, CGA Reps/Duration EO/EC PT-OP-T Assessment and Plan Start: 12/21/21 17:31 Freq: Status: Active Protocol: Document 05/08/22 14:33 DCW (Rec: 05/08/22 15:13 DCW [id number]) Physical Therapy Assessment Goals Three Impairment Pt in high falls-risk category Short Term Goal (STG) Pt to improve 6MWT distance by at least 180' to 467' 01/19/22: baseline assessment: 217 ft in 6 min w/ LBQC. 02/09/22: 259 ft in 6 min w/ SBQC 3 pt gait maintaining 70- 72 bpm w/ metronome. 02/13/22: 189 ft in 6min w/qc decrease to 65 bpm metronome with 2 brief stand rests, need to sit in chair end 6MWT, decline head turn ask 30 ft further to bike, nodded yes when asked if dizzy. 03/12/22: Minimal change since eval STG Duration 05/12/22 Head Lineman Goal (LTG) Pt to increase Bajwa score by at least 7 points to 35/56 to demonstrate a decrease in his falls risk 01/23/22: Bajwa Balance Score 24 /56 today 03/12/22: scores 31/56 today LTG Duration 06/12/22 Two Impairment Pt exhibits R LE MMT measured between 2-/5 to 3+/5 Longterm Goal (LTG) Pt to improve R LE MMT in all planes to at least 3/5 01/23/22: no significant change noted with MMT today 03/12/22: no significant change noted with MMT today LTG Duration 06/12/22 One Impairment Pt does not participate in an appropriate home exercise program Short Term Goal (STG) Pt to be compliant with an appropriate HEP 01/23/22: patient indicated not doing exercises at home, though also had quizzical look on face when asked about exercises. Has previously been issued written HEP. STG Duration 05/12/22 Assessment Summary Assessment Pt having good day today, did well foam stand with both eyes open and eyes closed. Physical Therapy Plan Frequency and Duration Frequency of Treatment 2x/Week Duration of Treatment Three months Plan of Care Start Date 03/12/22 Plan of Care End Date 06/12/22 Therapeutic Interventions Therapeutic Interventions Aquatic Therapy,Balance Training,Gait Training,Home Exercise Program,Joint Mobilizations,Manual Therapy, Neuromuscular Re-education, Patient/Caregiver Education, Self-Care/Home Management,Soft Tissue Mobilization, Therapeutic Activities, Therapeutic Exercises Next Visit Focus/Plan Next Note Type Treatment Note Next Visit Plan POC: Warm up bike, shuttle balance, progress 2pt gait, functional strength and balance challenges.
--- NOTE | 2022-05-15 15:17 | PT.OTN ---
Current Diagnoses Ataxic gait (05/15/22) Other abnormalities of gait and mobility (05/15/22) Weakness (05/15/22) Personal history of transient ischemic attack (TIA), and cerebral infarction without residual deficits (05/15/22) History of falling (05/15/22) Physical Therapy Treatment Note PT-OP-A Visit Information Start: 12/21/21 17:31 Freq: Status: Active Protocol: Document 05/15/22 14:45 SP (Rec: 05/15/22 15:55 SP [id number]) Out-Patient Physical Therapy Visit Information Visit Information Visit Type Treatment Note Visit Note Pt had use bathroom beginning of tx 3 min. Visit Start Time 14:38 Visit Stop Time 15:17 Total Visit Minutes 39 Visit Number 35 Number of CLIPPER MACHINE Visits 1 Evaluation Information Evaluation Date 12/21/21 Precautions Precautions expressive aphasia PT-OP-B Current Condition Start: 12/21/21 17:31 Freq: Status: Active Protocol: Document 02/21/22 08:19 SAK (Rec: 02/21/22 08:59 SAK [id number]) Current Condition History of Current Condition Onset Date 2013 Current Complaints Decreased strength, stamina, near falls History of Current Condition Pt is a 66 year old male very well known to this clinic who comes in to skilled PT today with a recent decline in functional mobility, strength, activity tolerance, and balance. Pt had suffered a CVA in 2013, and has been seen multiple times at this clinic since that time to improve balance and activity tolerance . At baseline, pt has fairly significant right hemiparesis and is almost entirely non- verbal. 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 Pt's notes that pt has been experiencing some problems with his lab values, especially a decrease in sodium and iron. also notes that previously, pt would enjoy going out around the town, but now he just prefers to stay home and only moves around from his chair to the bathroom and back. During prior rounds of PT, it has been difficult to convince Sukh to participate in his HEP, however his notes that their son-in-law recently became a CLIPPER MACHINE, so they are hopeful that he will be able to help direct a more comprehensive HEP. PT-OP-C Subjective Start: 12/21/21 17:31 Freq: Status: Active Protocol: Document 05/15/22 14:45 SP (Rec: 05/15/22 15:55 SP [id number]) OP-PT Subjective Patient Comments Patient Comments Pt indicates he is doing well today with head nod yes when asked how doing today. Nodded yes indicating toes doing ok when asked. PT-OP-D Balance Start: 12/21/21 17:31 Freq: Status: Active Protocol: Document 03/12/22 15:15 DCW (Rec: 03/12/22 15:40 DCW [id number]) OP-PT Balance Assessment Sitting Balance Static Sitting Balance Ability Normal Dynamic Sitting Balance Ability Good Standing Balance Static Standing Balance Ability Fair Dynamic Standing Balance Ability Fair Balance Tests Bajwa Balance Test Bajwa Balance Test Score 31/56 Bajwa Impairment Rating 40 to 59% Impaired (Score 23- 33) Bajwa Balance Assessment Evaluation Sitting to Standing Ability Independent w/Hands Unsupported Stance Supervision- 2 minutes Sitting Unsupported, Feet on Floor Safely- 2 minutes Standing to Sitting Ability Assist, Control w/Hands Transfer Ability Supervision, Verbal Cues Unsupported Stance- Eyes Closed Supervision, 10 seconds Unsupported Stance- Eyes Open Assist to attain, 15 secs Reaching Forward Standing Safely, 5 inches Pick- Up Object From Floor Supervision Look Behind Shoulder - Standing Turns Sideways Only Turning 360 Degrees Turns slowly, but safely Unsupported Stance, Alternating Feet on Assist to Prevent Fall Stair Unsupported Tandem Stance Assist to Step-15 seconds Unilateral Leg Stance Lifts Leg/Unable to Hold Total Score Bajwa Total Score (out of 56 points) 31 Bajwa Impairment Rating 40 to 59% Impaired (Score 23- 33) Estrella Fall Scale Copyright Permission PT-OP-E Functional Tests Start: 12/21/21 17:31 Freq: Status: Active Protocol: Document 03/12/22 15:15 DCW (Rec: 03/12/22 15:40 DCW [id number]) Functional Tests 6 Minute Walk Test Distance 262 Device Used LBQC Comments 0.72 ft/sec Timed Up and Go (TUG) Score 40.55 Comments /c SPC TUG Impairment Rating 100% Impaired (Score 20) PT-OP-G Mobility & Gait Start: 12/21/21 17:31 Freq: Status: Active Protocol: Document 03/12/22 15:15 DCW (Rec: 03/12/22 15:40 DCW [id number]) OP Gait Assessment Gait Gait Assistance Required: Standby Assistance Distance (Feet) 262 Able to Maintain Weight Bearing Status Yes During Gait Assistive Devices Assistive Device Gait Belt,Straight Cane Orthotic/Prosthetic Devices or Brace: Yes Gait Deviations General Gait Pattern Ataxic,Decreased Stride Length ,Decreased Feet Clearance, Flexed Trunk,Lateral Trunk Lean,Step-to Gait Factors Limiting Gait Function Factors Limiting Gait Function Abnormal Tonal Influences, Decreased Activity Tolerance, Decreased Strength,Limited Range of Motion,Poor Balance, Poor Safety Awareness Comments Gait Comments Pt ambulates with a step-to gait pattern, keeps his right arm in a flexed, guarded position, slow meenakshi, left foot internally rotated PT-OP-M Strength Start: 12/21/21 17:31 Freq: Status: Active Protocol: Document 03/12/22 15:15 DCW (Rec: 03/12/22 15:40 DCW [id number]) Hip Strength Hip Manual Muscle Testing Right Flexion (L2) 2+ Poor+ Extension (S1) 3- Fair- Abduction 2- Poor- Adduction 3 Fair External Rotation 2 Poor Internal Rotation 2 Poor Left Flexion (L2) 4+ Good+ Extension (S1) 4+ Good+ Abduction 5 Normal Adduction 4+ Good+ External Rotation 4 Good Internal Rotation 4 Good Knee Strength Knee Manual Muscle Testing Right Flexion (S2) 2+ Poor+ Extension (L3) 3+ Fair+ Left Flexion (S2) 5 Normal Extension (L3) 5 Normal Ankle/Foot Strength Ankle and Foot Manual Muscle Testing Right Dorsiflexion (L4) 4 Good Plantarflexion (S1) 4 Good PT-OP-Q Treatments Start: 12/21/21 17:31 Freq: Status: Active Protocol: Document 05/15/22 14:45 SP (Rec: 05/15/22 15:55 SP [id number]) Cardio Equipment Recumbent Elliptical ([place]) Duration (Minutes) 5 Resistance 5 Seat Position 9 Other left UE/ralph LE's: 317 steps Therapeutic Exercises Sitting Exercises STS Resistance SBA bench, 5%A picnic table uneven surface stability, LUE support Equipment Used from bench, picnic table outdoors Comments CGA on picnic bench due to Gait Training Gait Activity uneven surface outdoor gait Description incline/ decline gravel Device Used QC Level of Assistance CG-10%A at trunk through gait belt on gravel, grass, SBA- S walkway surfac Surface firm walkway outside MAP bldg, gravel incline/decline Distance/Duration 34ft, 137 ft, 196 ft Treatment Focus foot clearance, stability balance recovery Comments cued slow small steps, CLIPPER MACHINE light contact QC in LUE for stability ascend/descend Stair Mgt Description ascend forward/descend front yellow curb Device Used QC Level of Assistance CGA Distance/Duration x4 reps: 2>4> 6 inches in height Treatment Focus balance, glut and quad strengthening Comments Occasional cues for close to front step, descend RLE, light contact to 5%A for stability QC ascend/descend. gait Description 3 point pattern, cues for inc speed 2 pt gait Device Used LBQC, gait belt Level of Assistance CGA Surface firm, carpet and tile. Distance/Duration 58 ft, 49 ft, 86ft Treatment Focus 3 point pattern, increase speed Comments cued increased step length receiprocal patterning PT-OP-T Assessment and Plan Start: 12/21/21 17:31 Freq: Status: Active Protocol: Document 05/15/22 14:45 SP (Rec: 05/15/22 15:55 SP [id number]) Physical Therapy Assessment Goals Three Impairment Pt in high falls-risk category Short Term Goal (STG) Pt to improve 6MWT distance by at least 180' to 467' 01/19/22: baseline assessment: 217 ft in 6 min w/ LBQC. 02/09/22: 259 ft in 6 min w/ SBQC 3 pt gait maintaining 70- 72 bpm w/ metronome. 02/13/22: 189 ft in 6min w/qc decrease to 65 bpm metronome with 2 brief stand rests, need to sit in chair end 6MWT, decline head turn ask 30 ft further to bike, nodded yes when asked if dizzy. 03/12/22: Minimal change since eval STG Duration 05/12/22 Barrel Bander Goal (LTG) Pt to increase Bajwa score by at least 7 points to 35/56 to demonstrate a decrease in his falls risk 01/23/22: Bajwa Balance Score 24 /56 today 03/12/22: scores 31/56 today LTG Duration 06/12/22 Two Impairment Pt exhibits R LE MMT measured between 2-/5 to 3+/5 Assisted Goal (LTG) Pt to improve R LE MMT in all planes to at least 3/5 01/23/22: no significant change noted with MMT today 03/12/22: no significant change noted with MMT today LTG Duration 06/12/22 One Impairment Pt does not participate in an appropriate home exercise program Short Term Goal (STG) Pt to be compliant with an approrpiate HEP 01/23/22: patient indicated not doing exercises at home, though also had quizzical look on face when asked about exercises. Has previously been issued written HEP. STG Duration 05/12/22 Assessment Summary Assessment Pt improved ascend/descend curb stepping using QC, CG-5% A stabilize QC for safety use support LUE WB ascend lead LLE , descend RLE. Pt increased distance gait in/outdoor firm surfaces, initiated gravel uneven incline/decline outside MAP bldg, little more effort glut/ LE ext forward pushoff stepping over gravel incline, cued RLE foot clearance hip flexion and small heel toe descend. Cautious stepping, no LOB. Pt required 3 rest breaks throughout tx. Physical Therapy Plan Frequency and Duration Frequency of Treatment 2x/Week Duration of Treatment Three months Plan of Care Start Date 03/12/22 Plan of Care End Date 06/12/22 Therapeutic Interventions Therapeutic Interventions Aquatic Therapy,Balance Training,Gait Training,Home Exercise Program,Joint Mobilizations,Manual Therapy, Neuromuscular Re-education, Patient/Caregiver Education, Self-Care/Home Management,Soft Tissue Mobilization, Therapeutic Activities, Therapeutic Exercises Next Visit Focus/Plan Next Note Type Treatment Note Next Visit Plan Assess response to uneven surface gait gravel, curb last tx. POC: Warm up bike, shuttle balance, progress 2pt gait, functional strength and balance challenges.
--- NOTE | 2022-05-17 12:00 | PT.OTN ---
Current Diagnoses Ataxic gait (05/17/22) Other abnormalities of gait and mobility (05/17/22) Weakness (05/17/22) Personal history of transient ischemic attack (TIA), and cerebral infarction without residual deficits (05/17/22) History of falling (05/17/22) Physical Therapy Treatment Note PT-OP-A Visit Information Start: 12/21/21 17:31 Freq: Status: Active Protocol: Document 05/17/22 11:15 DCW (Rec: 05/17/22 12:00 DCW [id number]) Out-Patient Physical Therapy Visit Information Visit Information Visit Type Treatment Note Visit Start Time 11:15 Visit Stop Time 12:00 Total Visit Minutes 45 Visit Number 36 Number of ENDORSEMENT CLERK Visits 0 Evaluation Information Evaluation Date 12/21/21 Precautions Precautions expressive aphasia PT-OP-B Current Condition Start: 12/21/21 17:31 Freq: Status: Active Protocol: Document 02/21/22 08:19 SAK (Rec: 02/21/22 08:59 SAK [id number]) Current Condition History of Current Condition Onset Date 2013 Current Complaints Decreased strength, stamina, near falls History of Current Condition Pt is a 66 year old male very well known to this clinic who comes in to skilled PT today with a recent decline in functional mobility, strength, activity tolerance, and balance. Pt had suffered a CVA in 2013, and has been seen multiple times at this clinic since that time to improve balance and activity tolerance . At baseline, pt has fairly significant right hemiparesis and is almost entirely non- verbal. 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 Pt's notes that pt has been experiencing some problems with his lab values, especially a decrease in sodium and iron. also notes that previously, pt would enjoy going out around the town, but now he just prefers to stay home and only moves around from his chair to the bathroom and back. During prior rounds of PT, it has been difficult to convince Sukh to participate in his HEP, however his notes that their son-in-law recently became a ENDORSEMENT CLERK, so they are hopeful that he will be able to help direct a more comprehensive HEP. PT-OP-C Subjective Start: 12/21/21 17:31 Freq: Status: Active Protocol: Document 05/15/22 14:45 SP (Rec: 05/15/22 15:55 SP [id number]) OP-PT Subjective Patient Comments Patient Comments Pt indicates he is doing well today with head nod yes when asked how doing today. Nodded yes indicating toes doing ok when asked. PT-OP-D Balance Start: 12/21/21 17:31 Freq: Status: Active Protocol: Document 03/12/22 15:15 DCW (Rec: 03/12/22 15:40 DCW [id number]) OP-PT Balance Assessment Sitting Balance Static Sitting Balance Ability Normal Dynamic Sitting Balance Ability Good Standing Balance Static Standing Balance Ability Fair Dynamic Standing Balance Ability Fair Balance Tests Bajwa Balance Test Bajwa Balance Test Score 31/56 Bajwa Impairment Rating 40 to 59% Impaired (Score 23- 33) Bajwa Balance Assessment Evaluation Sitting to Standing Ability Independent w/Hands Unsupported Stance Supervision- 2 minutes Sitting Unsupported, Feet on Floor Safely- 2 minutes Standing to Sitting Ability Assist, Control w/Hands Transfer Ability Supervision, Verbal Cues Unsupported Stance- Eyes Closed Supervision, 10 seconds Unsupported Stance- Eyes Open Assist to attain, 15 secs Reaching Forward Standing Safely, 5 inches Pick- Up Object From Floor Supervision Look Behind Shoulder - Standing Turns Sideways Only Turning 360 Degrees Turns slowly, but safely Unsupported Stance, Alternating Feet on Assist to Prevent Fall Stair Unsupported Tandem Stance Assist to Step-15 seconds Unilateral Leg Stance Lifts Leg/Unable to Hold Total Score Bajwa Total Score (out of 56 points) 31 Bajwa Impairment Rating 40 to 59% Impaired (Score 23- 33) Estrella Fall Scale Copyright Permission PT-OP-E Functional Tests Start: 12/21/21 17:31 Freq: Status: Active Protocol: Document 03/12/22 15:15 DCW (Rec: 03/12/22 15:40 DCW [id number]) Functional Tests 6 Minute Walk Test Distance 262 Device Used LBQC Comments 0.72 ft/sec Timed Up and Go (TUG) Score 40.55 Comments /c SPC TUG Impairment Rating 100% Impaired (Score 20) PT-OP-G Mobility & Gait Start: 12/21/21 17:31 Freq: Status: Active Protocol: Document 03/12/22 15:15 DCW (Rec: 03/12/22 15:40 DCW [id number]) OP Gait Assessment Gait Gait Assistance Required: Standby Assistance Distance (Feet) 262 Able to Maintain Weight Bearing Status Yes During Gait Assistive Devices Assistive Device Gait Belt,Straight Cane Orthotic/Prosthetic Devices or Brace: Yes Gait Deviations General Gait Pattern Ataxic,Decreased Stride Length ,Decreased Feet Clearance, Flexed Trunk,Lateral Trunk Lean,Step-to Gait Factors Limiting Gait Function Factors Limiting Gait Function Abnormal Tonal Influences, Decreased Activity Tolerance, Decreased Strength,Limited Range of Motion,Poor Balance, Poor Safety Awareness Comments Gait Comments Pt ambulates with a step-to gait pattern, keeps his right arm in a flexed, guarded position, slow meenakshi, left foot internally rotated PT-OP-M Strength Start: 12/21/21 17:31 Freq: Status: Active Protocol: Document 03/12/22 15:15 DCW (Rec: 03/12/22 15:40 DCW [id number]) Hip Strength Hip Manual Muscle Testing Right Flexion (L2) 2+ Poor+ Extension (S1) 3- Fair- Abduction 2- Poor- Adduction 3 Fair External Rotation 2 Poor Internal Rotation 2 Poor Left Flexion (L2) 4+ Good+ Extension (S1) 4+ Good+ Abduction 5 Normal Adduction 4+ Good+ External Rotation 4 Good Internal Rotation 4 Good Knee Strength Knee Manual Muscle Testing Right Flexion (S2) 2+ Poor+ Extension (L3) 3+ Fair+ Left Flexion (S2) 5 Normal Extension (L3) 5 Normal Ankle/Foot Strength Ankle and Foot Manual Muscle Testing Right Dorsiflexion (L4) 4 Good Plantarflexion (S1) 4 Good PT-OP-Q Treatments Start: 12/21/21 17:31 Freq: Status: Active Protocol: Document 05/17/22 11:15 DCW (Rec: 05/17/22 12:00 DCW [id number]) Gym Equipment Shuttle Recovery Unilateral Squats Details B Resistance L 50#, R 37# Shuttle Recovery Platform Stable Reps/Time x15 Bilateral Squats Details small yellow ball between knees Resistance 75# Shuttle Recovery Platform Stable Reps/Time x20 Shuttle Balance red clips Details balance fwd/bck Comments Wide NATE, Stagger stance Neuro Re-Education Treatment Balance Activities uneven surface balance Surface Davis foam Equipment // bars, CGA Reps/Duration EO/EC Tandem Details Tandem stance Equipment // bars Reps/Duration EO Comments X1 viewing Putting Details Standing putting Surface firm Equipment putter, Reps/Duration 3 sets of 3 Comments Focus on weight shift, trunk rotation, standing balance, close SBA SLS Surface firm Equipment // bars PT-OP-T Assessment and Plan Start: 12/21/21 17:31 Freq: Status: Active Protocol: Document 05/17/22 11:15 DCW (Rec: 05/17/22 12:00 DCW [id number]) Physical Therapy Assessment Goals Three Impairment Pt in high falls-risk category Short Term Goal (STG) Pt to improve 6MWT distance by at least 180' to 467' 01/19/22: baseline assessment: 217 ft in 6 min w/ LBQC. 02/09/22: 259 ft in 6 min w/ SBQC 3 pt gait maintaining 70- 72 bpm w/ metronome. 02/13/22: 189 ft in 6min w/qc decrease to 65 bpm metronome with 2 brief stand rests, need to sit in chair end 6MWT, decline head turn ask 30 ft further to bike, nodded yes when asked if dizzy. 03/12/22: Minimal change since eval STG Duration 05/12/22 Longterm Goal (LTG) Pt to increase Bajwa score by at least 7 points to 35/56 to demonstrate a decrease in his falls risk 01/23/22: Bajwa Balance Score 24 /56 today 03/12/22: scores 31/56 today LTG Duration 06/12/22 Two Impairment Pt exhibits R LE MMT measured between 2-/5 to 3+/5 Core Man Goal (LTG) Pt to improve R LE MMT in all planes to at least 3/5 01/23/22: no significant change noted with MMT today 03/12/22: no significant change noted with MMT today LTG Duration 06/12/22 One Impairment Pt does not participate in an appropriate home exercise program Short Term Goal (STG) Pt to be compliant with an approrpiate HEP 01/23/22: patient indicated not doing exercises at home, though also had quizzical look on face when asked about exercises. Has previously been issued written HEP. STG Duration 05/12/22 Assessment Summary Assessment Pt had difficulty today with occasionally spasming in his right LE, which made it difficult for him to do many of his standing balance exercises with any good quality. Physical Therapy Plan Frequency and Duration Frequency of Treatment 2x/Week Duration of Treatment Three months Plan of Care Start Date 03/12/22 Plan of Care End Date 06/12/22 Therapeutic Interventions Therapeutic Interventions Aquatic Therapy,Balance Training,Gait Training,Home Exercise Program,Joint Mobilizations,Manual Therapy, Neuromuscular Re-education, Patient/Caregiver Education, Self-Care/Home Management,Soft Tissue Mobilization, Therapeutic Activities, Therapeutic Exercises Next Visit Focus/Plan Next Note Type Treatment Note Next Visit Plan Assess response to uneven surface gait gravel, curb last tx. POC: Warm up bike, shuttle balance, progress 2pt gait, functional strength and balance challenges.
--- NOTE | 2022-05-21 15:17 | PT.OTN ---
Current Diagnoses Ataxic gait (05/21/22) Other abnormalities of gait and mobility (05/21/22) Weakness (05/21/22) Personal history of transient ischemic attack (TIA), and cerebral infarction without residual deficits (05/21/22) History of falling (05/21/22) Physical Therapy Treatment Note PT-OP-A Visit Information Start: 12/21/21 17:31 Freq: Status: Active Protocol: Document 05/21/22 14:40 DCW (Rec: 05/21/22 15:17 DCW [id number]) Out-Patient Physical Therapy Visit Information Visit Information Visit Type Treatment Note Visit Note Began 10 minutes late. Pt arrived 2 minutes late and then 8 minutes in restroom. Visit Start Time 14:40 Visit Stop Time 15:15 Total Visit Minutes 35 Visit Number 37 Number of MONITOR AND STORAGE BIN TENDER Visits 0 Evaluation Information Evaluation Date 12/21/21 Precautions Precautions expressive aphasia PT-OP-B Current Condition Start: 12/21/21 17:31 Freq: Status: Active Protocol: Document 02/21/22 08:19 SAK (Rec: 02/21/22 08:59 SAK [id number]) Current Condition History of Current Condition Onset Date 2013 Current Complaints Decreased strength, stamina, near falls History of Current Condition Pt is a 66 year old male very well known to this clinic who comes in to skilled PT today with a recent decline in functional mobility, strength, activity tolerance, and balance. Pt had suffered a CVA in 2013, and has been seen multiple times at this clinic since that time to improve balance and activity tolerance . At baseline, pt has fairly significant right hemiparesis and is almost entirely non- verbal. 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 Pt's notes that pt has been experiencing some problems with his lab values, especially a decrease in sodium and iron. also notes that previously, pt would enjoy going out around the town, but now he just prefers to stay home and only moves around from his chair to the bathroom and back. During prior rounds of PT, it has been difficult to convince Sukh to participate in his HEP, however his notes that their son-in-law recently became a MONITOR AND STORAGE BIN TENDER, so they are hopeful that he will be able to help direct a more comprehensive HEP. PT-OP-C Subjective Start: 12/21/21 17:31 Freq: Status: Active Protocol: Document 05/21/22 14:40 DCW (Rec: 05/21/22 15:17 DCW [id number]) OP-PT Subjective Patient Comments Patient Comments Pt indicates that he is doing well today. PT-OP-D Balance Start: 12/21/21 17:31 Freq: Status: Active Protocol: Document 03/12/22 15:15 DCW (Rec: 03/12/22 15:40 DCW [id number]) OP-PT Balance Assessment Sitting Balance Static Sitting Balance Ability Normal Dynamic Sitting Balance Ability Good Standing Balance Static Standing Balance Ability Fair Dynamic Standing Balance Ability Fair Balance Tests Bajwa Balance Test Bajwa Balance Test Score 31/56 Bajwa Impairment Rating 40 to 59% Impaired (Score 23- 33) Bajwa Balance Assessment Evaluation Sitting to Standing Ability Independent w/Hands Unsupported Stance Supervision- 2 minutes Sitting Unsupported, Feet on Floor Safely- 2 minutes Standing to Sitting Ability Assist, Control w/Hands Transfer Ability Supervision, Verbal Cues Unsupported Stance- Eyes Closed Supervision, 10 seconds Unsupported Stance- Eyes Open Assist to attain, 15 secs Reaching Forward Standing Safely, 5 inches Pick- Up Object From Floor Supervision Look Behind Shoulder - Standing Turns Sideways Only Turning 360 Degrees Turns slowly, but safely Unsupported Stance, Alternating Feet on Assist to Prevent Fall Stair Unsupported Tandem Stance Assist to Step-15 seconds Unilateral Leg Stance Lifts Leg/Unable to Hold Total Score Bajwa Total Score (out of 56 points) 31 Bajwa Impairment Rating 40 to 59% Impaired (Score 23- 33) Estrella Fall Scale Copyright Permission PT-OP-E Functional Tests Start: 12/21/21 17:31 Freq: Status: Active Protocol: Document 03/12/22 15:15 DCW (Rec: 03/12/22 15:40 DCW [id number]) Functional Tests 6 Minute Walk Test Distance 262 Device Used LBQC Comments 0.72 ft/sec Timed Up and Go (TUG) Score 40.55 Comments /c SPC TUG Impairment Rating 100% Impaired (Score 20) PT-OP-G Mobility & Gait Start: 12/21/21 17:31 Freq: Status: Active Protocol: Document 03/12/22 15:15 DCW (Rec: 03/12/22 15:40 DCW [id number]) OP Gait Assessment Gait Gait Assistance Required: Standby Assistance Distance (Feet) 262 Able to Maintain Weight Bearing Status Yes During Gait Assistive Devices Assistive Device Gait Belt,Straight Cane Orthotic/Prosthetic Devices or Brace: Yes Gait Deviations General Gait Pattern Ataxic,Decreased Stride Length ,Decreased Feet Clearance, Flexed Trunk,Lateral Trunk Lean,Step-to Gait Factors Limiting Gait Function Factors Limiting Gait Function Abnormal Tonal Influences, Decreased Activity Tolerance, Decreased Strength,Limited Range of Motion,Poor Balance, Poor Safety Awareness Comments Gait Comments Pt ambulates with a step-to gait pattern, keeps his right arm in a flexed, guarded position, slow meenakshi, left foot internally rotated PT-OP-M Strength Start: 12/21/21 17:31 Freq: Status: Active Protocol: Document 03/12/22 15:15 DCW (Rec: 03/12/22 15:40 DCW [id number]) Hip Strength Hip Manual Muscle Testing Right Flexion (L2) 2+ Poor+ Extension (S1) 3- Fair- Abduction 2- Poor- Adduction 3 Fair External Rotation 2 Poor Internal Rotation 2 Poor Left Flexion (L2) 4+ Good+ Extension (S1) 4+ Good+ Abduction 5 Normal Adduction 4+ Good+ External Rotation 4 Good Internal Rotation 4 Good Knee Strength Knee Manual Muscle Testing Right Flexion (S2) 2+ Poor+ Extension (L3) 3+ Fair+ Left Flexion (S2) 5 Normal Extension (L3) 5 Normal Ankle/Foot Strength Ankle and Foot Manual Muscle Testing Right Dorsiflexion (L4) 4 Good Plantarflexion (S1) 4 Good PT-OP-Q Treatments Start: 12/21/21 17:31 Freq: Status: Active Protocol: Document 05/21/22 14:40 DCW (Rec: 05/21/22 15:17 DCW [id number]) Cardio Equipment Recumbent Elliptical (Biodex) Duration (Minutes) 5 Resistance 5 Seat Position 9 Other left UE/ralph LE's: 317 steps Gym Equipment Shuttle Recovery Unilateral Squats Details B Resistance L 50#, R 37# Shuttle Recovery Platform Stable Reps/Time x15 Bilateral Squats Details small yellow ball between knees Resistance 75# Shuttle Recovery Platform Stable Reps/Time x20 Shuttle Balance red clips Details balance fwd/bck Comments Wide NATE, Stagger stance Neuro Re-Education Treatment Balance Activities Putting Details Standing putting Surface firm Equipment putter, Reps/Duration 3 sets of 3 Comments Focus on weight shift, trunk rotation, standing balance, close SBA PT-OP-T Assessment and Plan Start: 12/21/21 17:31 Freq: Status: Active Protocol: Document 05/21/22 14:40 DCW (Rec: 05/21/22 15:17 DCW [id number]) Physical Therapy Assessment Goals Three Impairment Pt in high falls-risk category Short Term Goal (STG) Pt to improve 6MWT distance by at least 180' to 467' 01/19/22: baseline assessment: 217 ft in 6 min w/ LBQC. 02/09/22: 259 ft in 6 min w/ SBQC 3 pt gait maintaining 70- 72 bpm w/ metronome. 02/13/22: 189 ft in 6min w/qc decrease to 65 bpm metronome with 2 brief stand rests, need to sit in chair end 6MWT, decline head turn ask 30 ft further to bike, nodded yes when asked if dizzy. 03/12/22: Minimal change since eval STG Duration 05/12/22 Silk Screen Etcher Goal (LTG) Pt to increase Bajwa score by at least 7 points to 35/56 to demonstrate a decrease in his falls risk 01/23/22: Bajwa Balance Score 24 /56 today 03/12/22: scores 31/56 today LTG Duration 06/12/22 Two Impairment Pt exhibits R LE MMT measured between 2-/5 to 3+/5 Silk Screen Etcher Goal (LTG) Pt to improve R LE MMT in all planes to at least 3/5 01/23/22: no significant change noted with MMT today 03/12/22: no significant change noted with MMT today LTG Duration 06/12/22 One Impairment Pt does not participate in an appropriate home exercise program Short Term Goal (STG) Pt to be compliant with an approrpiate HEP 01/23/22: patient indicated not doing exercises at home, though also had quizzical look on face when asked about exercises. Has previously been issued written HEP. STG Duration 05/12/22 Assessment Summary Assessment Pt did well with shortened time period today, fatigued slightly right at the end, but able to participate fully in all activities without rest. Physical Therapy Plan Frequency and Duration Frequency of Treatment 2x/Week Duration of Treatment Three months Plan of Care Start Date 03/12/22 Plan of Care End Date 06/12/22 Therapeutic Interventions Therapeutic Interventions Aquatic Therapy,Balance Training,Gait Training,Home Exercise Program,Joint Mobilizations,Manual Therapy, Neuromuscular Re-education, Patient/Caregiver Education, Self-Care/Home Management,Soft Tissue Mobilization, Therapeutic Activities, Therapeutic Exercises Next Visit Focus/Plan Next Note Type Treatment Note Next Visit Plan Assess response to uneven surface gait gravel, curb last tx. POC: Warm up bike, shuttle balance, progress 2pt gait, functional strength and balance challenges.
--- NOTE | 2022-05-29 13:45 | PT.OTN ---
Current Diagnoses Ataxic gait (05/29/22) Other abnormalities of gait and mobility (05/29/22) Weakness (05/29/22) Personal history of transient ischemic attack (TIA), and cerebral infarction without residual deficits (05/29/22) History of falling (05/29/22) Physical Therapy Treatment Note PT-OP-A Visit Information Start: 12/21/21 17:31 Freq: Status: Active Protocol: Document 05/29/22 13:01 SP (Rec: 05/29/22 13:46 SP [id number]) Out-Patient Physical Therapy Visit Information Visit Information Visit Type Treatment Note Visit Note GOYOA Francoise assisted with ther ex with direct supervision by CÉSAR Andrade. Visit Start Time 13:01 Visit Stop Time 13:45 Total Visit Minutes 44 Visit Number 38 Number of [employer] Visits 1 Evaluation Information Evaluation Date 12/21/21 Precautions Precautions expressive aphasia PT-OP-B Current Condition Start: 12/21/21 17:31 Freq: Status: Active Protocol: Document 02/21/22 08:19 SAK (Rec: 02/21/22 08:59 SAK [id number]) Current Condition History of Current Condition Onset Date 2013 Current Complaints Decreased strength, stamina, near falls History of Current Condition Pt is a 66 year old male very well known to this clinic who comes in to skilled PT today with a recent decline in functional mobility, strength, activity tolerance, and balance. Pt had suffered a CVA in 2013, and has been seen multiple times at this clinic since that time to improve balance and activity tolerance . At baseline, pt has fairly significant right hemiparesis and is almost entirely non- verbal. 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 Pt's notes that pt has been experiencing some problems with his lab values, especially a decrease in sodium and iron. also notes that previously, pt would enjoy going out around the town, but now he just prefers to stay home and only moves around from his chair to the bathroom and back. During prior rounds of PT, it has been difficult to convince Sukh to participate in his HEP, however his notes that their son-in-law recently became a [employer], so they are hopeful that he will be able to help direct a more comprehensive HEP. PT-OP-C Subjective Start: 12/21/21 17:31 Freq: Status: Active Protocol: Document 05/29/22 13:01 SP (Rec: 05/29/22 13:46 SP [id number]) OP-PT Subjective Patient Comments Patient Comments Pt indicates that he is doing well today. Pt denied any toe or foot pain with head turn indicating no. PT-OP-D Balance Start: 12/21/21 17:31 Freq: Status: Active Protocol: Document 03/12/22 15:15 DCW (Rec: 03/12/22 15:40 DCW [id number]) OP-PT Balance Assessment Sitting Balance Static Sitting Balance Ability Normal Dynamic Sitting Balance Ability Good Standing Balance Static Standing Balance Ability Fair Dynamic Standing Balance Ability Fair Balance Tests Bajwa Balance Test Bajwa Balance Test Score 31/56 Bajwa Impairment Rating 40 to 59% Impaired (Score 23- 33) Bajwa Balance Assessment Evaluation Sitting to Standing Ability Independent w/Hands Unsupported Stance Supervision- 2 minutes Sitting Unsupported, Feet on Floor Safely- 2 minutes Standing to Sitting Ability Assist, Control w/Hands Transfer Ability Supervision, Verbal Cues Unsupported Stance- Eyes Closed Supervision, 10 seconds Unsupported Stance- Eyes Open Assist to attain, 15 secs Reaching Forward Standing Safely, 5 inches Pick- Up Object From Floor Supervision Look Behind Shoulder - Standing Turns Sideways Only Turning 360 Degrees Turns slowly, but safely Unsupported Stance, Alternating Feet on Assist to Prevent Fall Stair Unsupported Tandem Stance Assist to Step-15 seconds Unilateral Leg Stance Lifts Leg/Unable to Hold Total Score Bajwa Total Score (out of 56 points) 31 Bajwa Impairment Rating 40 to 59% Impaired (Score 23- 33) Estrella Fall Scale Copyright Permission PT-OP-E Functional Tests Start: 12/21/21 17:31 Freq: Status: Active Protocol: Document 03/12/22 15:15 DCW (Rec: 03/12/22 15:40 DCW [id number]) Functional Tests 6 Minute Walk Test Distance 262 Device Used LBQC Comments 0.72 ft/sec Timed Up and Go (TUG) Score 40.55 Comments /c SPC TUG Impairment Rating 100% Impaired (Score 20) PT-OP-G Mobility & Gait Start: 12/21/21 17:31 Freq: Status: Active Protocol: Document 03/12/22 15:15 DCW (Rec: 03/12/22 15:40 DCW [id number]) OP Gait Assessment Gait Gait Assistance Required: Standby Assistance Distance (Feet) 262 Able to Maintain Weight Bearing Status Yes During Gait Assistive Devices Assistive Device Gait Belt,Straight Cane Orthotic/Prosthetic Devices or Brace: Yes Gait Deviations General Gait Pattern Ataxic,Decreased Stride Length ,Decreased Feet Clearance, Flexed Trunk,Lateral Trunk Lean,Step-to Gait Factors Limiting Gait Function Factors Limiting Gait Function Abnormal Tonal Influences, Decreased Activity Tolerance, Decreased Strength,Limited Range of Motion,Poor Balance, Poor Safety Awareness Comments Gait Comments Pt ambulates with a step-to gait pattern, keeps his right arm in a flexed, guarded position, slow meenakshi, left foot internally rotated PT-OP-M Strength Start: 12/21/21 17:31 Freq: Status: Active Protocol: Document 03/12/22 15:15 DCW (Rec: 03/12/22 15:40 DCW [id number]) Hip Strength Hip Manual Muscle Testing Right Flexion (L2) 2+ Poor+ Extension (S1) 3- Fair- Abduction 2- Poor- Adduction 3 Fair External Rotation 2 Poor Internal Rotation 2 Poor Left Flexion (L2) 4+ Good+ Extension (S1) 4+ Good+ Abduction 5 Normal Adduction 4+ Good+ External Rotation 4 Good Internal Rotation 4 Good Knee Strength Knee Manual Muscle Testing Right Flexion (S2) 2+ Poor+ Extension (L3) 3+ Fair+ Left Flexion (S2) 5 Normal Extension (L3) 5 Normal Ankle/Foot Strength Ankle and Foot Manual Muscle Testing Right Dorsiflexion (L4) 4 Good Plantarflexion (S1) 4 Good PT-OP-Q Treatments Start: 12/21/21 17:31 Freq: Status: Active Protocol: Document 05/29/22 13:01 SP (Rec: 05/29/22 13:46 SP [id number]) Cardio Equipment Recumbent Elliptical (Biodex) Duration (Minutes) 5 Resistance 5 Seat Position 8 Other left UE/ ralph LE's: 288 Gym Equipment Shuttle Recovery Unilateral Squats Details B Resistance L 50#, R 37# Shuttle Recovery Platform Stable Reps/Time 2x15 (R x10 > x15) Bilateral Squats Details small yellow ball between knees Resistance 75# Shuttle Recovery Platform Stable Reps/Time x20 Therapeutic Exercises Standing Exercises step up/ down Standing Exercise Name fwd Side bilateral Resistance 5# leg wt Equipment Used Rail LUE 6 step, blue foamcushion Reps/Minutes x5 reps each LE lead up RLE, seated rest then lean LLE down Comments cued tall posture, LUE elbow straight/R quad fac ascend/ desc 1 Standing Exercise Name Toe-taps receiprocal (neuro) Side bilateral Resistance 5# leg wt B x5 reps Equipment Used 6 step, QC LUE> L HR w/ 5# leg wt Reps/Minutes alternating LEs Comments CGA, cued R knee quad fac for stability LLE transitioning Neuro Re-Education Treatment Balance Activities volley w/ balloon Surface firm Equipment balloon LUE Reps/Duration 1 min Comments CGA- SBA add blue foam next tx uneven surface balance Details NBOS, stagger Surface blue foamfoam Equipment L HR, CGA-5%A Reps/Duration EO/EC Comments EO: HT horizonal/ vertical EC 10s PT-OP-T Assessment and Plan Start: 12/21/21 17:31 Freq: Status: Active Protocol: Document 05/29/22 13:01 SP (Rec: 05/29/22 13:46 SP [id number]) Physical Therapy Assessment Goals Three Impairment Pt in high falls-risk category Short Term Goal (STG) Pt to improve 6MWT distance by at least 180' to 467' 01/19/22: baseline assessment: 217 ft in 6 min w/ LBQC. 02/09/22: 259 ft in 6 min w/ SBQC 3 pt gait maintaining 70- 72 bpm w/ metronome. 02/13/22: 189 ft in 6min w/qc decrease to 65 bpm metronome with 2 brief stand rests, need to sit in chair end 6MWT, decline head turn ask 30 ft further to bike, nodded yes when asked if dizzy. 03/12/22: Minimal change since eval STG Duration 05/12/22 Longterm Goal (LTG) Pt to increase Bajwa score by at least 7 points to 35/56 to demonstrate a decrease in his falls risk 01/23/22: Bajwa Balance Score 24 /56 today 03/12/22: scores 31/56 today LTG Duration 06/12/22 Two Impairment Pt exhibits R LE MMT measured between 2-/5 to 3+/5 Longterm Goal (LTG) Pt to improve R LE MMT in all planes to at least 3/5 01/23/22: no significant change noted with MMT today 03/12/22: no significant change noted with MMT today LTG Duration 06/12/22 One Impairment Pt does not participate in an appropriate home exercise program Short Term Goal (STG) Pt to be compliant with an approrpiate HEP 01/23/22: patient indicated not doing exercises at home, though also had quizzical look on face when asked about exercises. Has previously been issued written HEP. STG Duration 05/12/22 Assessment Summary Assessment Pt improved wt shift into LLE during neuroreed foam stance and EC. Good effort functional resistated step tap/ step updowns with LUE support. Physical Therapy Plan Frequency and Duration Frequency of Treatment 2x/Week Duration of Treatment Three months Plan of Care Start Date 03/12/22 Plan of Care End Date 06/12/22 Therapeutic Interventions Therapeutic Interventions Aquatic Therapy,Balance Training,Gait Training,Home Exercise Program,Joint Mobilizations,Manual Therapy, Neuromuscular Re-education, Patient/Caregiver Education, Self-Care/Home Management,Soft Tissue Mobilization, Therapeutic Activities, Therapeutic Exercises Next Visit Focus/Plan Next Note Type Treatment Note Next Visit Plan POC: Warm up bike, shuttle balance, progress 2pt gait, functional strength and balance challenges.
--- NOTE | 2022-05-31 13:45 | PT.OTN ---
Current Diagnoses Ataxic gait (05/31/22) Other abnormalities of gait and mobility (05/31/22) Weakness (05/31/22) Personal history of transient ischemic attack (TIA), and cerebral infarction without residual deficits (05/31/22) History of falling (05/31/22) Physical Therapy Treatment Note PT-OP-A Visit Information Start: 12/21/21 17:31 Freq: Status: Active Protocol: Document 05/31/22 13:07 SP (Rec: 05/31/22 13:48 SP [id number]) Out-Patient Physical Therapy Visit Information Visit Information Visit Type Treatment Note Visit Note SPTA Francoise safety assisted with ther ex and neuroreed, gait with direct supervision by CÉSAR Andrade. Visit Start Time 13:07 Visit Stop Time 13:45 Total Visit Minutes 38 Visit Number 39 Number of CONVEYOR INSTALLER Visits 2 Evaluation Information Evaluation Date 12/21/21 Precautions Precautions expressive aphasia PT-OP-B Current Condition Start: 12/21/21 17:31 Freq: Status: Active Protocol: Document 02/21/22 08:19 SAK (Rec: 02/21/22 08:59 SAK [id number]) Current Condition History of Current Condition Onset Date 2013 Current Complaints Decreased strength, stamina, near falls History of Current Condition Pt is a 66 year old male very well known to this clinic who comes in to skilled PT today with a recent decline in functional mobility, strength, activity tolerance, and balance. Pt had suffered a CVA in 2013, and has been seen multiple times at this clinic since that time to improve balance and activity tolerance . At baseline, pt has fairly significant right hemiparesis and is almost entirely non- verbal. 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 Pt's notes that pt has been experiencing some problems with his lab values, especially a decrease in sodium and iron. also notes that previously, pt would enjoy going out around the town, but now he just prefers to stay home and only moves around from his chair to the bathroom and back. During prior rounds of PT, it has been difficult to convince Sukh to participate in his HEP, however his notes that their son-in-law recently became a CONVEYOR INSTALLER, so they are hopeful that he will be able to help direct a more comprehensive HEP. PT-OP-C Subjective Start: 12/21/21 17:31 Freq: Status: Active Protocol: Document 05/31/22 13:07 SP (Rec: 05/31/22 13:48 SP [id number]) OP-PT Subjective Patient Comments Patient Comments Pt indicates that he is doing well today. PT-OP-D Balance Start: 12/21/21 17:31 Freq: Status: Active Protocol: Document 03/12/22 15:15 DCW (Rec: 03/12/22 15:40 DCW [id number]) OP-PT Balance Assessment Sitting Balance Static Sitting Balance Ability Normal Dynamic Sitting Balance Ability Good Standing Balance Static Standing Balance Ability Fair Dynamic Standing Balance Ability Fair Balance Tests Bajwa Balance Test Bajwa Balance Test Score 31/56 Bajwa Impairment Rating 40 to 59% Impaired (Score 23- 33) Bajwa Balance Assessment Evaluation Sitting to Standing Ability Independent w/Hands Unsupported Stance Supervision- 2 minutes Sitting Unsupported, Feet on Floor Safely- 2 minutes Standing to Sitting Ability Assist, Control w/Hands Transfer Ability Supervision, Verbal Cues Unsupported Stance- Eyes Closed Supervision, 10 seconds Unsupported Stance- Eyes Open Assist to attain, 15 secs Reaching Forward Standing Safely, 5 inches Pick- Up Object From Floor Supervision Look Behind Shoulder - Standing Turns Sideways Only Turning 360 Degrees Turns slowly, but safely Unsupported Stance, Alternating Feet on Assist to Prevent Fall Stair Unsupported Tandem Stance Assist to Step-15 seconds Unilateral Leg Stance Lifts Leg/Unable to Hold Total Score Bajwa Total Score (out of 56 points) 31 Bajwa Impairment Rating 40 to 59% Impaired (Score 23- 33) Estrella Fall Scale Copyright Permission PT-OP-E Functional Tests Start: 12/21/21 17:31 Freq: Status: Active Protocol: Document 03/12/22 15:15 DCW (Rec: 03/12/22 15:40 DCW [id number]) Functional Tests 6 Minute Walk Test Distance 262 Device Used LBQC Comments 0.72 ft/sec Timed Up and Go (TUG) Score 40.55 Comments /c SPC TUG Impairment Rating 100% Impaired (Score 20) PT-OP-G Mobility & Gait Start: 12/21/21 17:31 Freq: Status: Active Protocol: Document 03/12/22 15:15 DCW (Rec: 03/12/22 15:40 DCW [id number]) OP Gait Assessment Gait Gait Assistance Required: Standby Assistance Distance (Feet) 262 Able to Maintain Weight Bearing Status Yes During Gait Assistive Devices Assistive Device Gait Belt,Straight Cane Orthotic/Prosthetic Devices or Brace: Yes Gait Deviations General Gait Pattern Ataxic,Decreased Stride Length ,Decreased Feet Clearance, Flexed Trunk,Lateral Trunk Lean,Step-to Gait Factors Limiting Gait Function Factors Limiting Gait Function Abnormal Tonal Influences, Decreased Activity Tolerance, Decreased Strength,Limited Range of Motion,Poor Balance, Poor Safety Awareness Comments Gait Comments Pt ambulates with a step-to gait pattern, keeps his right arm in a flexed, guarded position, slow meenakshi, left foot internally rotated PT-OP-M Strength Start: 12/21/21 17:31 Freq: Status: Active Protocol: Document 03/12/22 15:15 DCW (Rec: 03/12/22 15:40 DCW [id number]) Hip Strength Hip Manual Muscle Testing Right Flexion (L2) 2+ Poor+ Extension (S1) 3- Fair- Abduction 2- Poor- Adduction 3 Fair External Rotation 2 Poor Internal Rotation 2 Poor Left Flexion (L2) 4+ Good+ Extension (S1) 4+ Good+ Abduction 5 Normal Adduction 4+ Good+ External Rotation 4 Good Internal Rotation 4 Good Knee Strength Knee Manual Muscle Testing Right Flexion (S2) 2+ Poor+ Extension (L3) 3+ Fair+ Left Flexion (S2) 5 Normal Extension (L3) 5 Normal Ankle/Foot Strength Ankle and Foot Manual Muscle Testing Right Dorsiflexion (L4) 4 Good Plantarflexion (S1) 4 Good PT-OP-Q Treatments Start: 12/21/21 17:31 Freq: Status: Active Protocol: Document 05/31/22 13:07 SP (Rec: 05/31/22 13:48 SP [id number]) Gym Equipment Shuttle Recovery Unilateral Squats Details B Resistance L 50#, R 37# Shuttle Recovery Platform Stable Reps/Time 2x15 (R x10 > x15) Bilateral Squats Details small yellow ball between knees Resistance 75# Shuttle Recovery Platform Stable Reps/Time x20 Shuttle Balance red clips Details balance fwd/bck Comments Wide NATE, Stagger stance w/ CGA Gait Training Gait Activity uneven surface Description indoors, red mat- F/B Device Used QC, GB Level of Assistance CGA Surface red yoga mat Distance/Duration 5 ft x2 laps Treatment Focus balance recovery, increase WB into LLE Comments cued tall posture and R toe clearance during retro stepping. gait Description 3 point pattern, cues for inc speed 2 pt gait Device Used LBQC, gait belt Level of Assistance CGA Surface firm, carpet and tile. Distance/Duration 170 ft Treatment Focus 3 point pattern, increase speed Comments cued increased step length receiprocal patterning, 3>2 pt gait Neuro Re-Education Treatment Balance Activities Putting Details Standing putting Surface firm Equipment putter, red yoga mat Reps/Duration 3 sets of 3 Comments Focus on weight shift, trunk rotation, standing balance, CGA due to uneven surface. PT-OP-T Assessment and Plan Start: 12/21/21 17:31 Freq: Status: Active Protocol: Document 05/31/22 13:07 SP (Rec: 05/31/22 13:48 SP [id number]) Physical Therapy Assessment Goals Three Impairment Pt in high falls-risk category Short Term Goal (STG) Pt to improve 6MWT distance by at least 180' to 467' 01/19/22: baseline assessment: 217 ft in 6 min w/ LBQC. 02/09/22: 259 ft in 6 min w/ SBQC 3 pt gait maintaining 70- 72 bpm w/ metronome. 02/13/22: 189 ft in 6min w/qc decrease to 65 bpm metronome with 2 brief stand rests, need to sit in chair end 6MWT, decline head turn ask 30 ft further to bike, nodded yes when asked if dizzy. 03/12/22: Minimal change since eval STG Duration 05/12/22 Residential Goal (LTG) Pt to increase Bajwa score by at least 7 points to 35/56 to demonstrate a decrease in his falls risk 01/23/22: Bajwa Balance Score 24 /56 today 03/12/22: scores 31/56 today LTG Duration 06/12/22 Two Impairment Pt exhibits R LE MMT measured between 2-/5 to 3+/5 Finish Repairer Goal (LTG) Pt to improve R LE MMT in all planes to at least 3/5 01/23/22: no significant change noted with MMT today 03/12/22: no significant change noted with MMT today LTG Duration 06/12/22 One Impairment Pt does not participate in an appropriate home exercise program Short Term Goal (STG) Pt to be compliant with an approrpiate HEP 01/23/22: patient indicated not doing exercises at home, though also had quizzical look on face when asked about exercises. Has previously been issued written HEP. STG Duration 05/12/22 Assessment Summary Assessment Pt improved balance stability and increase wt shift into RLE during golf puttying and f/b short distance stepping on Yoga foam mat w/ use of QC with more confidence today, CGA for safety. Physical Therapy Plan Frequency and Duration Frequency of Treatment 2x/Week Duration of Treatment Three months Plan of Care Start Date 03/12/22 Plan of Care End Date 06/12/22 Therapeutic Interventions Therapeutic Interventions Aquatic Therapy,Balance Training,Gait Training,Home Exercise Program,Joint Mobilizations,Manual Therapy, Neuromuscular Re-education, Patient/Caregiver Education, Self-Care/Home Management,Soft Tissue Mobilization, Therapeutic Activities, Therapeutic Exercises Next Visit Focus/Plan Next Note Type Treatment Note Next Visit Plan POC: Warm up bike, shuttle balance, progress 2pt gait, functional strength and balance challenges.
--- NOTE | 2022-06-05 12:00 | PT.OTN ---
Current Diagnoses Ataxic gait (06/05/22) Other abnormalities of gait and mobility (06/05/22) Weakness (06/05/22) Personal history of transient ischemic attack (TIA), and cerebral infarction without residual deficits (06/05/22) History of falling (06/05/22) Physical Therapy Treatment Note PT-OP-A Visit Information Start: 12/21/21 17:31 Freq: Status: Active Protocol: Document 06/05/22 11:15 DCW (Rec: 06/05/22 12:00 DCW [id number]) Out-Patient Physical Therapy Visit Information Visit Information Visit Type Progress Note Visit Start Time 11:15 Visit Stop Time 12:00 Total Visit Minutes 45 Visit Number 40 Number of PATTERN DATA OPERATOR Visits 0 Evaluation Information Evaluation Date 12/21/21 Precautions Precautions expressive aphasia PT-OP-B Current Condition Start: 12/21/21 17:31 Freq: Status: Active Protocol: Document 02/21/22 08:19 SAK (Rec: 02/21/22 08:59 SAK [id number]) Current Condition History of Current Condition Onset Date 2013 Current Complaints Decreased strength, stamina, near falls History of Current Condition Pt is a 66 year old male very well known to this clinic who comes in to skilled PT today with a recent decline in functional mobility, strength, activity tolerance, and balance. Pt had suffered a CVA in 2013, and has been seen multiple times at this clinic since that time to improve balance and activity tolerance . At baseline, pt has fairly significant right hemiparesis and is almost entirely non- verbal. 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 Pt's notes that pt has been experiencing some problems with his lab values, especially a decrease in sodium and iron. also notes that previously, pt would enjoy going out around the town, but now he just prefers to stay home and only moves around from his chair to the bathroom and back. During prior rounds of PT, it has been difficult to convince Sukh to participate in his HEP, however his notes that their son-in-law recently became a PATTERN DATA OPERATOR, so they are hopeful that he will be able to help direct a more comprehensive HEP. PT-OP-C Subjective Start: 12/21/21 17:31 Freq: Status: Active Protocol: Document 06/05/22 11:15 DCW (Rec: 06/05/22 12:00 DCW [id number]) OP-PT Subjective Patient Comments Patient Comments Pt indicates that he is doing well today. PT-OP-D Balance Start: 12/21/21 17:31 Freq: Status: Active Protocol: Document 06/05/22 11:15 DCW (Rec: 06/05/22 11:51 DCW [id number]) Balance Tests Bajwa Balance Test Bajwa Balance Test Score 41/56 Bajwa Impairment Rating 20 to 39% Impaired (Score 34- 44) Bajwa Balance Assessment Evaluation Sitting to Standing Ability Independent w/Hands Unsupported Stance Safely- 2 minutes Sitting Unsupported, Feet on Floor Safely- 2 minutes Standing to Sitting Ability Assist, Control w/Hands Transfer Ability Safely, Hand Use Unsupported Stance- Eyes Closed Safely, 10 seconds Unsupported Stance- Eyes Open Independent, 1 minute Reaching Forward Standing Safely, 5 inches Pick- Up Object From Floor Supervision Look Behind Shoulder - Standing Shifts Weight Unilateral Turning 360 Degrees Turns slowly, but safely Unsupported Stance, Alternating Feet on 2 Steps w/Minimum Assist Stair Unsupported Tandem Stance Holds Tandem- 30 seconds Unilateral Leg Stance Lifts Leg/Unable to Hold Total Score Bajwa Total Score (out of 56 points) 41 Bajwa Impairment Rating 20 to 39% Impaired (Score 34- 44) PT-OP-E Functional Tests Start: 12/21/21 17:31 Freq: Status: Active Protocol: Document 06/05/22 11:15 DCW (Rec: 06/05/22 11:51 [facility] [id number]) Functional Tests 6 Minute Walk Test Distance 282 Device Used LBQC Comments 0.78 ft/sec Timed Up and Go (TUG) Score 36.79 Comments /c SPC TUG Impairment Rating 100% Impaired (Score 20) PT-OP-G Mobility & Gait Start: 12/21/21 17:31 Freq: Status: Active Protocol: Document 06/05/22 11:15 DCW (Rec: 06/05/22 11:51 DC [id number]) OP Gait Assessment Gait Gait Assistance Required: Standby Assistance Distance (Feet) 282 Able to Maintain Weight Bearing Status Yes During Gait Assistive Devices Assistive Device Gait Belt,Straight Cane Orthotic/Prosthetic Devices or Brace: Yes Gait Deviations General Gait Pattern Ataxic,Decreased Stride Length ,Decreased Feet Clearance, Flexed Trunk,Lateral Trunk Lean,Step-to Gait Factors Limiting Gait Function Factors Limiting Gait Function Abnormal Tonal Influences, Decreased Activity Tolerance, Decreased Strength,Limited Range of Motion,Poor Balance, Poor Safety Awareness Comments Gait Comments Pt ambulates with a step-to gait pattern, keeps his right arm in a flexed, guarded position, slow meenakshi, left foot internally rotated PT-OP-M Strength Start: 12/21/21 17:31 Freq: Status: Active Protocol: Document 06/05/22 11:15 DCW (Rec: 06/05/22 11:51 DCW [id number]) Hip Strength Hip Manual Muscle Testing Right Flexion (L2) 2+ Poor+ Extension (S1) 3- Fair- Abduction 2- Poor- Adduction 3 Fair External Rotation 2 Poor Internal Rotation 2 Poor Left Flexion (L2) 4+ Good+ Extension (S1) 4+ Good+ Abduction 5 Normal Adduction 4+ Good+ External Rotation 4 Good Internal Rotation 4 Good Knee Strength Knee Manual Muscle Testing Right Flexion (S2) 3- Fair- Extension (L3) 3+ Fair+ Left Flexion (S2) 5 Normal Extension (L3) 5 Normal Ankle/Foot Strength Ankle and Foot Manual Muscle Testing Left Dorsiflexion (L4) 5 Normal Plantarflexion (S1) 5 Normal Right Comments AFO PT-OP-Q Treatments Start: 12/21/21 17:31 Freq: Status: Active Protocol: Document 06/05/22 11:15 DCW (Rec: 06/05/22 12:00 DCW [id number]) Cardio Equipment Recumbent Elliptical ([place]) Duration (Minutes) 5 Resistance 5 Seat Position 8 Other left UE/ ralph LE's: 288 Neuro Re-Education Treatment Other Activities Testing Details TUG, Bajwa, MMT, 6MWT PT-OP-T Assessment and Plan Start: 12/21/21 17:31 Freq: Status: Active Protocol: Document 06/05/22 11:15 DCW (Rec: 06/05/22 12:00 DCW [id number]) Physical Therapy Assessment Goals Three Impairment Pt in high falls-risk category Short Term Goal (STG) Pt to improve 6MWT distance by at least 180' to 467' 01/19/22: baseline assessment: 217 ft in 6 min w/ LBQC. 02/09/22: 259 ft in 6 min w/ SBQC 3 pt gait maintaining 70- 72 bpm w/ metronome. 02/13/22: 189 ft in 6min w/qc decrease to 65 bpm metronome with 2 brief stand rests, need to sit in chair end 6MWT, decline head turn ask 30 ft further to bike, nodded yes when asked if dizzy. 03/12/22: Minimal change since eval 06/05/22: Minimal change since eval STG Duration 07/19/22 Mcc Goal (LTG) Pt to increase Bajwa score by at least 7 points to 35/56 to demonstrate a decrease in his falls risk 01/23/22: Bajwa Balance Score 24 /56 today 03/12/22: scores 31/56 today 06/05/22: Met, 41/56. NEW GOAL: Bajwa score of 45/56 to demonstrate low falls risk LTG Duration 09/03/22 Two Impairment Pt exhibits R LE MMT measured between 2-/5 to 3+/5 Mcc Goal (LTG) Pt to improve R LE MMT in all planes to at least 3/5 01/23/22: no significant change noted with MMT today 03/12/22: no significant change noted with MMT today LTG Duration 09/03/22 One Impairment Pt does not participate in an appropriate home exercise program Short Term Goal (STG) Pt to be compliant with an approrpiate HEP 01/23/22: patient indicated not doing exercises at home, though also had quizzical look on face when asked about exercises. Has previously been issued written HEP. STG Duration 07/19/22 Questionable compliance Assessment Summary Assessment Pgt showing good improvement with balance recently, Bajwa score increased from 31/56 on 03/12 to 41/56 on 06/05. Additionally, TUG score decreased by nearly 4 seconds. Still struggles most with gait speed, but clearly showing decreasing falls risk. Continued therapy indicated for increasing LE strength and gait. Physical Therapy Plan Frequency and Duration Frequency of Treatment 2x/Week Duration of Treatment 90 days Plan of Care Start Date 06/05/22 Plan of Care End Date 09/03/22 Therapeutic Interventions Therapeutic Interventions Aquatic Therapy,Balance Training,Gait Training,Home Exercise Program,Joint Mobilizations,Manual Therapy, Neuromuscular Re-education, Patient/Caregiver Education, Self-Care/Home Management,Soft Tissue Mobilization, Therapeutic Activities, Therapeutic Exercises Next Visit Focus/Plan Next Note Type Treatment Note Next Visit Plan POC: Warm up bike, shuttle balance, progress 2pt gait, functional strength and balance challenges.
--- NOTE | 2022-06-05 12:01 | PT.OPPOC ---
Physical, Occupational & Speech Therapy At [facility] Current Diagnoses Ataxic gait (06/05/22) Other abnormalities of gait and mobility (06/05/22) Weakness (06/05/22) Personal history of transient ischemic attack (TIA), and cerebral infarction without residual deficits (06/05/22) History of falling (06/05/22) Visit Care Team Role Provider Type Delfino Epstein MD Primary Care Provider Physician Specialty: Family Practice Address: [address] [place] [address], [id number] Email: [email or web address] Bernice Lopez PA-C Attending Provider Advanced Padding Machine Operator Referring Provider Specialty: Medical Address: [address], [address] Email: [email or web address] Plan Of Care PT-OP-T Assessment and Plan Start: 12/21/21 17:31 Freq: Status: Active Protocol: Document 06/05/22 11:15 DCW (Rec: 06/05/22 12:00 DCW [id number]) Physical Therapy Assessment Goals Three Impairment Pt in high falls-risk category Short Term Goal (STG) Pt to improve 6MWT distance by at least 180' to 467' 01/19/22: baseline assessment: 217 ft in 6 min w/ LBQC. 02/09/22: 259 ft in 6 min w/ SBQC 3 pt gait maintaining 70- 72 bpm w/ metronome. 02/13/22: 189 ft in 6min w/qc decrease to 65 bpm metronome with 2 brief stand rests, need to sit in chair end 6MWT, decline head turn ask 30 ft further to bike, nodded yes when asked if dizzy. 03/12/22: Minimal change since eval 06/05/22: Minimal change since eval STG Duration 07/19/22 Temperature Regulator Goal (LTG) Pt to increase Bajwa score by at least 7 points to 35/56 to demonstrate a decrease in his falls risk 01/23/22: Bajwa Balance Score 24 /56 today 03/12/22: scores 31/56 today 06/05/22: Met, 41/56. NEW GOAL: Bajwa score of 45/56 to demonstrate low falls risk LTG Duration 09/03/22 Two Impairment Pt exhibits R LE MMT measured between 2-/5 to 3+/5 Temperature Regulator Goal (LTG) Pt to improve R LE MMT in all planes to at least 3/5 01/23/22: no significant change noted with MMT today 03/12/22: no significant change noted with MMT today LTG Duration 09/03/22 One Impairment Pt does not participate in an appropriate home exercise program Short Term Goal (STG) Pt to be compliant with an approrpiate HEP 01/23/22: patient indicated not doing exercises at home, though also had quizzical look on face when asked about exercises. Has previously been issued written HEP. STG Duration 07/19/22 Questionable compliance Assessment Summary Assessment Pgt showing good improvement with balance recently, Bajwa score increased from 31/56 on 03/12 to 41/56 on 06/05. Additionally, TUG score decreased by nearly 4 seconds. Still struggles most with gait speed, but clearly showing decreasing falls risk. Continued therapy indicated for increasing LE strength and gait. Physical Therapy Plan Frequency and Duration Frequency of Treatment 2x/Week Duration of Treatment 90 days Plan of Care Start Date 06/05/22 Plan of Care End Date 09/03/22 Therapeutic Interventions Therapeutic Interventions Aquatic Therapy,Balance Training,Gait Training,Home Exercise Program,Joint Mobilizations,Manual Therapy, Neuromuscular Re-education, Patient/Caregiver Education, Self-Care/Home Management,Soft Tissue Mobilization, Therapeutic Activities, Therapeutic Exercises Next Visit Focus/Plan Next Note Type Treatment Note Next Visit Plan POC: Warm up bike, shuttle balance, progress 2pt gait, functional strength and balance challenges. Plan of Care Dates Plan of Care Start Date 06/05/22 Plan of Care End Date 09/03/22 Electronically Signed by: Jefferson Ceron, PT 06/05/22 3499 If you are in agreement with this Plan of Care, please return a signed and dated copy. I have reviewed this Plan of Care and certify that the skilled therapy services above are required to meet the patient?s needs. Physician Signature Date Printed Name and Credentials Clinical Instructor Signature Printed Name and Credentials
--- NOTE | 2022-06-28 16:17 | PT.OTN ---
Current Diagnoses Ataxic gait (06/28/22) Other abnormalities of gait and mobility (06/28/22) Weakness (06/28/22) Personal history of transient ischemic attack (TIA), and cerebral infarction without residual deficits (06/28/22) History of falling (06/28/22) Physical Therapy Treatment Note PT-OP-A Visit Information Start: 12/21/21 17:31 Freq: Status: Active Protocol: Document 06/28/22 14:06 AW (Rec: 06/28/22 16:16 AW [id number]) Out-Patient Physical Therapy Visit Information Visit Information Visit Type Treatment Note Visit Start Time 15:25 Visit Stop Time 16:05 Total Visit Minutes 40 Visit Number 41 Number of DELICATE FABRICS PRESSER Visits 0 Evaluation Information Evaluation Date 12/21/21 Precautions Precautions expressive aphasia PT-OP-B Current Condition Start: 12/21/21 17:31 Freq: Status: Active Protocol: Document 02/21/22 08:19 SAK (Rec: 02/21/22 08:59 SAK [id number]) Current Condition History of Current Condition Onset Date 2013 Current Complaints Decreased strength, stamina, near falls History of Current Condition Pt is a 66 year old male very well known to this clinic who comes in to skilled PT today with a recent decline in functional mobility, strength, activity tolerance, and balance. Pt had suffered a CVA in 2013, and has been seen multiple times at this clinic since that time to improve balance and activity tolerance . At baseline, pt has fairly significant right hemiparesis and is almost entirely non- verbal. 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 Pt's notes that pt has been experiencing some problems with his lab values, especially a decrease in sodium and iron. also notes that previously, pt would enjoy going out around the town, but now he just prefers to stay home and only moves around from his chair to the bathroom and back. During prior rounds of PT, it has been difficult to convince Sukh to participate in his HEP, however his notes that their son-in-law recently became a DELICATE FABRICS PRESSER, so they are hopeful that he will be able to help direct a more comprehensive HEP. PT-OP-C Subjective Start: 12/21/21 17:31 Freq: Status: Active Protocol: Document 06/28/22 14:06 AW (Rec: 06/28/22 16:16 AW [id number]) OP-PT Subjective Patient Comments Patient Comments Pt indicates that he is doing well today. PT-OP-D Balance Start: 12/21/21 17:31 Freq: Status: Active Protocol: Document 06/05/22 11:15 DCW (Rec: 06/05/22 11:51 DCW [id number]) Balance Tests Bajwa Balance Test Bajwa Balance Test Score 41/56 Bajwa Impairment Rating 20 to 39% Impaired (Score 34- 44) Bajwa Balance Assessment Evaluation Sitting to Standing Ability Independent w/Hands Unsupported Stance Safely- 2 minutes Sitting Unsupported, Feet on Floor Safely- 2 minutes Standing to Sitting Ability Assist, Control w/Hands Transfer Ability Safely, Hand Use Unsupported Stance- Eyes Closed Safely, 10 seconds Unsupported Stance- Eyes Open Independent, 1 minute Reaching Forward Standing Safely, 5 inches Pick- Up Object From Floor Supervision Look Behind Shoulder - Standing Shifts Weight Unilateral Turning 360 Degrees Turns slowly, but safely Unsupported Stance, Alternating Feet on 2 Steps w/Minimum Assist Stair Unsupported Tandem Stance Holds Tandem- 30 seconds Unilateral Leg Stance Lifts Leg/Unable to Hold Total Score Bajwa Total Score (out of 56 points) 41 Bajwa Impairment Rating 20 to 39% Impaired (Score 34- 44) PT-OP-E Functional Tests Start: 12/21/21 17:31 Freq: Status: Active Protocol: Document 06/05/22 11:15 DCW (Rec: 06/05/22 11:51 DCW [id number]) Functional Tests 6 Minute Walk Test Distance 282 Device Used LBQC Comments 0.78 ft/sec Timed Up and Go (TUG) Score 36.79 Comments /c SPC TUG Impairment Rating 100% Impaired (Score 20) PT-OP-G Mobility & Gait Start: 12/21/21 17:31 Freq: Status: Active Protocol: Document 06/05/22 11:15 DCW (Rec: 06/05/22 11:51 DCW [id number]) OP Gait Assessment Gait Gait Assistance Required: Standby Assistance Distance (Feet) 282 Able to Maintain Weight Bearing Status Yes During Gait Assistive Devices Assistive Device Gait Belt,Straight Cane Orthotic/Prosthetic Devices or Brace: Yes Gait Deviations General Gait Pattern Ataxic,Decreased Stride Length ,Decreased Feet Clearance, Flexed Trunk,Lateral Trunk Lean,Step-to Gait Factors Limiting Gait Function Factors Limiting Gait Function Abnormal Tonal Influences, Decreased Activity Tolerance, Decreased Strength,Limited Range of Motion,Poor Balance, Poor Safety Awareness Comments Gait Comments Pt ambulates with a step-to gait pattern, keeps his right arm in a flexed, guarded position, slow meenakshi, left foot internally rotated PT-OP-M Strength Start: 12/21/21 17:31 Freq: Status: Active Protocol: Document 06/05/22 11:15 DCW (Rec: 06/05/22 11:51 DCW [id number]) Hip Strength Hip Manual Muscle Testing Right Flexion (L2) 2+ Poor+ Extension (S1) 3- Fair- Abduction 2- Poor- Adduction 3 Fair External Rotation 2 Poor Internal Rotation 2 Poor Left Flexion (L2) 4+ Good+ Extension (S1) 4+ Good+ Abduction 5 Normal Adduction 4+ Good+ External Rotation 4 Good Internal Rotation 4 Good Knee Strength Knee Manual Muscle Testing Right Flexion (S2) 3- Fair- Extension (L3) 3+ Fair+ Left Flexion (S2) 5 Normal Extension (L3) 5 Normal Ankle/Foot Strength Ankle and Foot Manual Muscle Testing Left Dorsiflexion (L4) 5 Normal Plantarflexion (S1) 5 Normal Right Comments AFO PT-OP-Q Treatments Start: 12/21/21 17:31 Freq: Status: Active Protocol: Document 06/28/22 14:06 AW (Rec: 06/28/22 16:16 AW [id number]) Cardio Equipment Recumbent Elliptical (BiodWEMS) Duration (Minutes) 5 Resistance 5 Seat Position 8 Other left UE/ ralph LE's: 288 Gym Equipment Shuttle Recovery Unilateral Squats Details B Resistance L 50#, R 37# Shuttle Recovery Platform Stable Reps/Time 2x15 (R x10 > x15) Bilateral Squats Details small yellow ball between knees Resistance 75# Shuttle Recovery Platform Stable Reps/Time x20 Shuttle Balance red clips Details balance fwd/bck Comments Wide NATE, Stagger stance w/ CGA Gait Training Gait Activity uneven surface Description indoors, 2 red mats stacked - F/B Device Used QC, GB Level of Assistance CGA Surface red yoga mat x 2 Distance/Duration 5 ft x2 laps Treatment Focus balance recovery, increase WB into LLE Comments cued tall posture and R toe clearance during retro stepping. gait Description 3 point pattern, cues for inc speed 2 pt gait Device Used LBQC, gait belt Level of Assistance CGA Surface firm, carpet and tile. Distance/Duration 150 ft x 2 Treatment Focus 3 point pattern, increase speed Comments cued increased step length receiprocal patterning, 3>2 pt gait PT-OP-T Assessment and Plan Start: 12/21/21 17:31 Freq: Status: Active Protocol: Document 06/28/22 14:06 AW (Rec: 06/28/22 16:16 AW [id number]) Physical Therapy Assessment Goals Three Impairment Pt in high falls-risk category Short Term Goal (STG) Pt to improve 6MWT distance by at least 180' to 467' 01/19/22: baseline assessment: 217 ft in 6 min w/ LBQC. 02/09/22: 259 ft in 6 min w/ SBQC 3 pt gait maintaining 70- 72 bpm w/ metronome. 02/13/22: 189 ft in 6min w/qc decrease to 65 bpm metronome with 2 brief stand rests, need to sit in chair end 6MWT, decline head turn ask 30 ft further to bike, nodded yes when asked if dizzy. 03/12/22: Minimal change since eval 06/05/22: Minimal change since eval STG Duration 07/19/22 Sample Weaver Goal (LTG) Pt to increase Bajwa score by at least 7 points to 35/56 to demonstrate a decrease in his falls risk 01/23/22: Bajwa Balance Score 24 /56 today 03/12/22: scores 31/56 today 06/05/22: Met, 41/56. NEW GOAL: Bajwa score of 45/56 to demonstrate low falls risk LTG Duration 09/03/22 Two Impairment Pt exhibits R LE MMT measured between 2-/5 to 3+/5 Shelter Goal (LTG) Pt to improve R LE MMT in all planes to at least 3/5 01/23/22: no significant change noted with MMT today 03/12/22: no significant change noted with MMT today LTG Duration 09/03/22 One Impairment Pt does not participate in an appropriate home exercise program Short Term Goal (STG) Pt to be compliant with an approrpiate HEP 01/23/22: patient indicated not doing exercises at home, though also had quizzical look on face when asked about exercises. Has previously been issued written HEP. STG Duration 07/19/22 Questionable compliance Assessment Summary Assessment Sukh was well-engaged with activities today. He was able to manage walking on stacked yoga mats with no more than CGA. Physical Therapy Plan Frequency and Duration Frequency of Treatment 2x/Week Duration of Treatment 90 days Plan of Care Start Date 06/05/22 Plan of Care End Date 09/03/22 Therapeutic Interventions Therapeutic Interventions Aquatic Therapy,Balance Training,Gait Training,Home Exercise Program,Joint Mobilizations,Manual Therapy, Neuromuscular Re-education, Patient/Caregiver Education, Self-Care/Home Management,Soft Tissue Mobilization, Therapeutic Activities, Therapeutic Exercises Next Visit Focus/Plan Next Note Type Treatment Note Next Visit Plan POC: Warm up bike, shuttle balance, progress 2pt gait, functional strength and balance challenges.
--- NOTE | 2022-07-10 15:17 | PT.OTN ---
Current Diagnoses Ataxic gait (07/10/22) Other abnormalities of gait and mobility (07/10/22) Weakness (07/10/22) Personal history of transient ischemic attack (TIA), and cerebral infarction without residual deficits (07/10/22) History of falling (07/10/22) Physical Therapy Treatment Note PT-OP-A Visit Information Start: 12/21/21 17:31 Freq: Status: Active Protocol: Document 07/10/22 14:38 SP (Rec: 07/10/22 15:43 SP [id number]) Out-Patient Physical Therapy Visit Information Visit Information Visit Type Treatment Note Visit Start Time 14:38 Visit Stop Time 15:17 Total Visit Minutes 39 Visit Number 43 Number of FUR VAULT ATTENDANT Visits 1 Evaluation Information Evaluation Date 12/21/21 Precautions Precautions expressive aphasia PT-OP-B Current Condition Start: 12/21/21 17:31 Freq: Status: Active Protocol: Document 02/21/22 08:19 SAK (Rec: 02/21/22 08:59 SAK [id number]) Current Condition History of Current Condition Onset Date 2013 Current Complaints Decreased strength, stamina, near falls History of Current Condition Pt is a 66 year old male very well known to this clinic who comes in to skilled PT today with a recent decline in functional mobility, strength, activity tolerance, and balance. Pt had suffered a CVA in 2013, and has been seen multiple times at this clinic since that time to improve balance and activity tolerance . At baseline, pt has fairly significant right hemiparesis and is almost entirely non- verbal. 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 Pt's notes that pt has been experiencing some problems with his lab values, especially a decrease in sodium and iron. also notes that previously, pt would enjoy going out around the town, but now he just prefers to stay home and only moves around from his chair to the bathroom and back. During prior rounds of PT, it has been difficult to convince Sukh to participate in his HEP, however his notes that their son-in-law recently became a FUR VAULT ATTENDANT, so they are hopeful that he will be able to help direct a more comprehensive HEP. PT-OP-C Subjective Start: 12/21/21 17:31 Freq: Status: Active Protocol: Document 07/10/22 14:38 SP (Rec: 07/10/22 15:43 SP [id number]) OP-PT Subjective Patient Comments Patient Comments Pt indicates that he is feeling pretty good today with head nod yes when ask and shook head no whe asked if any concerns. PT-OP-D Balance Start: 12/21/21 17:31 Freq: Status: Active Protocol: Document 06/05/22 11:15 DCW (Rec: 06/05/22 11:51 DCW [id number]) Balance Tests Bajwa Balance Test Bajwa Balance Test Score 41/56 Bajwa Impairment Rating 20 to 39% Impaired (Score 34- 44) Bajwa Balance Assessment Evaluation Sitting to Standing Ability Independent w/Hands Unsupported Stance Safely- 2 minutes Sitting Unsupported, Feet on Floor Safely- 2 minutes Standing to Sitting Ability Assist, Control w/Hands Transfer Ability Safely, Hand Use Unsupported Stance- Eyes Closed Safely, 10 seconds Unsupported Stance- Eyes Open Independent, 1 minute Reaching Forward Standing Safely, 5 inches Pick- Up Object From Floor Supervision Look Behind Shoulder - Standing Shifts Weight Unilateral Turning 360 Degrees Turns slowly, but safely Unsupported Stance, Alternating Feet on 2 Steps w/Minimum Assist Stair Unsupported Tandem Stance Holds Tandem- 30 seconds Unilateral Leg Stance Lifts Leg/Unable to Hold Total Score Bajwa Total Score (out of 56 points) 41 Bajwa Impairment Rating 20 to 39% Impaired (Score 34- 44) PT-OP-E Functional Tests Start: 12/21/21 17:31 Freq: Status: Active Protocol: Document 06/05/22 11:15 DCW (Rec: 06/05/22 11:51 DCW [id number]) Functional Tests 6 Minute Walk Test Distance 282 Device Used LBQC Comments 0.78 ft/sec Timed Up and Go (TUG) Score 36.79 Comments /c SPC TUG Impairment Rating 100% Impaired (Score 20) PT-OP-G Mobility & Gait Start: 12/21/21 17:31 Freq: Status: Active Protocol: Document 06/05/22 11:15 DCW (Rec: 06/05/22 11:51 DCW [id number]) OP Gait Assessment Gait Gait Assistance Required: Standby Assistance Distance (Feet) 282 Able to Maintain Weight Bearing Status Yes During Gait Assistive Devices Assistive Device Gait Belt,Straight Cane Orthotic/Prosthetic Devices or Brace: Yes Gait Deviations General Gait Pattern Ataxic,Decreased Stride Length ,Decreased Feet Clearance, Flexed Trunk,Lateral Trunk Lean,Step-to Gait Factors Limiting Gait Function Factors Limiting Gait Function Abnormal Tonal Influences, Decreased Activity Tolerance, Decreased Strength,Limited Range of Motion,Poor Balance, Poor Safety Awareness Comments Gait Comments Pt ambulates with a step-to gait pattern, keeps his right arm in a flexed, guarded position, slow meenakshi, left foot internally rotated PT-OP-M Strength Start: 12/21/21 17:31 Freq: Status: Active Protocol: Document 06/05/22 11:15 DCW (Rec: 06/05/22 11:51 DCW [id number]) Hip Strength Hip Manual Muscle Testing Right Flexion (L2) 2+ Poor+ Extension (S1) 3- Fair- Abduction 2- Poor- Adduction 3 Fair External Rotation 2 Poor Internal Rotation 2 Poor Left Flexion (L2) 4+ Good+ Extension (S1) 4+ Good+ Abduction 5 Normal Adduction 4+ Good+ External Rotation 4 Good Internal Rotation 4 Good Knee Strength Knee Manual Muscle Testing Right Flexion (S2) 3- Fair- Extension (L3) 3+ Fair+ Left Flexion (S2) 5 Normal Extension (L3) 5 Normal Ankle/Foot Strength Ankle and Foot Manual Muscle Testing Left Dorsiflexion (L4) 5 Normal Plantarflexion (S1) 5 Normal Right Comments AFO PT-OP-Q Treatments Start: 12/21/21 17:31 Freq: Status: Active Protocol: Document 07/10/22 14:38 SP (Rec: 07/10/22 15:43 SP [id number]) Gym Equipment Shuttle Recovery Unilateral Squats Details B Resistance L 50#, R 37# Shuttle Recovery Platform Stable Reps/Time 2x15 L, R 10, 15 Bilateral Squats Details small yellow ball between knees Resistance 75# Shuttle Recovery Platform Stable Reps/Time x20 Shuttle Balance red clips Details balance fwd/bck Comments Wide NATE, Stagger stance w/ CGA- Min A cued wt shift into RLE more. trialed sts but unableto steady WB onto RLE so got off, Mod-Max A LUE forearm wB on handle Manual Therapy Treatment Soft Tissue Mobilization L knee Body Location L patellar tendon, superior patella/distal quad Mobilization Type Cross-Friction,Strumming Intensity/Depth Moderate Body Position shuttle recovery Comments good feedback response, nod yes when asked if felt better. Neuro Re-Education Treatment Balance Activities hurdles Details forward only today 07/10 Surface firm Equipment 6 hurdles, QC, 5# leg wts LLE only today Reps/Duration x1 laps , no resistance back Comments good effort hip flexion. CG-10 %A lead RLE, QC on L, x1 R foot caught 1 marlen min A for recovery. Putting Details Standing putting Surface blue mat Equipment putter Reps/Duration 2 sets of 6 Comments Focus on weight shift, trunk rotation, standing balance, CGA, close SBA due to uneven surface. PT-OP-T Assessment and Plan Start: 12/21/21 17:31 Freq: Status: Active Protocol: Document 07/10/22 14:38 SP (Rec: 07/10/22 15:43 SP [id number]) Physical Therapy Assessment Goals Three Impairment Pt in high falls-risk category Short Term Goal (STG) Pt to improve 6MWT distance by at least 180' to 467' 01/19/22: baseline assessment: 217 ft in 6 min w/ LBQC. 02/09/22: 259 ft in 6 min w/ SBQC 3 pt gait maintaining 70- 72 bpm w/ metronome. 02/13/22: 189 ft in 6min w/qc decrease to 65 bpm metronome with 2 brief stand rests, need to sit in chair end 6MWT, decline head turn ask 30 ft further to bike, nodded yes when asked if dizzy. 03/12/22: Minimal change since eval 06/05/22: Minimal change since eval STG Duration 07/19/22 Half-Way Goal (LTG) Pt to increase Bajwa score by at least 7 points to 35/56 to demonstrate a decrease in his falls risk 01/23/22: Bajwa Balance Score 24 /56 today 03/12/22: scores 31/56 today 06/05/22: Met, 41/56. NEW GOAL: Bajwa score of 45/56 to demonstrate low falls risk LTG Duration 09/03/22 Two Impairment Pt exhibits R LE MMT measured between 2-/5 to 3+/5 Half-Way Goal (LTG) Pt to improve R LE MMT in all planes to at least 3/5 01/23/22: no significant change noted with MMT today 03/12/22: no significant change noted with MMT today LTG Duration 09/03/22 One Impairment Pt does not participate in an appropriate home exercise program Short Term Goal (STG) Pt to be compliant with an approrpiate HEP 01/23/22: patient indicated not doing exercises at home, though also had quizzical look on face when asked about exercises. Has previously been issued written HEP. STG Duration 07/19/22 Questionable compliance Assessment Summary Assessment Biodex unavailable today. Good effort on shuttle recovery, pointed to L patellar tendon discomfort during shuttle recovery, improve post manual. Pt able to complete hurdles with QC support and RUE PRN, challenged with RLE clearing marlen today with leg wt, improved with removal AROM. Pt able to manage blue mat uneven surface w/ QC support needed putting today, no sways or LOB. Physical Therapy Plan Frequency and Duration Frequency of Treatment 2x/Week Duration of Treatment 90 days Plan of Care Start Date 06/05/22 Plan of Care End Date 09/03/22 Therapeutic Interventions Therapeutic Interventions Aquatic Therapy,Balance Training,Gait Training,Home Exercise Program,Joint Mobilizations,Manual Therapy, Neuromuscular Re-education, Patient/Caregiver Education, Self-Care/Home Management,Soft Tissue Mobilization, Therapeutic Activities, Therapeutic Exercises Next Visit Focus/Plan Next Note Type Treatment Note Next Visit Plan POC: Warm up bike, shuttle balance, progress 2pt gait, functional strength and balance challenges.
--- NOTE | 2022-07-17 15:17 | PT.OTN ---
Current Diagnoses Ataxic gait (07/17/22) Other abnormalities of gait and mobility (07/17/22) Weakness (07/17/22) Personal history of transient ischemic attack (TIA), and cerebral infarction without residual deficits (07/17/22) History of falling (07/17/22) Physical Therapy Treatment Note PT-OP-A Visit Information Start: 12/21/21 17:31 Freq: Status: Active Protocol: Document 07/17/22 14:32 SP (Rec: 07/17/22 15:27 SP [id number]) Out-Patient Physical Therapy Visit Information Visit Information Visit Type Treatment Note Visit Start Time 14:32 Visit Stop Time 15:17 Total Visit Minutes 45 Visit Number 44 Number of SAS ARCHITECT Visits 2 Evaluation Information Evaluation Date 12/21/21 Precautions Precautions expressive aphasia PT-OP-B Current Condition Start: 12/21/21 17:31 Freq: Status: Active Protocol: Document 02/21/22 08:19 SAK (Rec: 02/21/22 08:59 SAK [id number]) Current Condition History of Current Condition Onset Date 2013 Current Complaints Decreased strength, stamina, near falls History of Current Condition Pt is a 66 year old male very well known to this clinic who comes in to skilled PT today with a recent decline in functional mobility, strength, activity tolerance, and balance. Pt had suffered a CVA in 2013, and has been seen multiple times at this clinic since that time to improve balance and activity tolerance . At baseline, pt has fairly significant right hemiparesis and is almost entirely non- verbal. 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 Pt's notes that pt has been experiencing some problems with his lab values, especially a decrease in sodium and iron. also notes that previously, pt would enjoy going out around the town, but now he just prefers to stay home and only moves around from his chair to the bathroom and back. During prior rounds of PT, it has been difficult to convince Sukh to participate in his HEP, however his notes that their son-in-law recently became a SAS ARCHITECT, so they are hopeful that he will be able to help direct a more comprehensive HEP. PT-OP-C Subjective Start: 12/21/21 17:31 Freq: Status: Active Protocol: Document 07/17/22 14:32 SP (Rec: 07/17/22 15:27 SP [id number]) OP-PT Subjective Patient Comments Patient Comments Pt nooded indicating doing well when asked. PT-OP-D Balance Start: 12/21/21 17:31 Freq: Status: Active Protocol: Document 06/05/22 11:15 DCW (Rec: 06/05/22 11:51 DCW [id number]) Balance Tests Bajwa Balance Test Bajwa Balance Test Score 41/56 Bajwa Impairment Rating 20 to 39% Impaired (Score 34- 44) Bajwa Balance Assessment Evaluation Sitting to Standing Ability Independent w/Hands Unsupported Stance Safely- 2 minutes Sitting Unsupported, Feet on Floor Safely- 2 minutes Standing to Sitting Ability Assist, Control w/Hands Transfer Ability Safely, Hand Use Unsupported Stance- Eyes Closed Safely, 10 seconds Unsupported Stance- Eyes Open Independent, 1 minute Reaching Forward Standing Safely, 5 inches Pick- Up Object From Floor Supervision Look Behind Shoulder - Standing Shifts Weight Unilateral Turning 360 Degrees Turns slowly, but safely Unsupported Stance, Alternating Feet on 2 Steps w/Minimum Assist Stair Unsupported Tandem Stance Holds Tandem- 30 seconds Unilateral Leg Stance Lifts Leg/Unable to Hold Total Score Bajwa Total Score (out of 56 points) 41 Bajwa Impairment Rating 20 to 39% Impaired (Score 34- 44) PT-OP-E Functional Tests Start: 12/21/21 17:31 Freq: Status: Active Protocol: Document 06/05/22 11:15 DCW (Rec: 06/05/22 11:51 DC [id number]) Functional Tests 6 Minute Walk Test Distance 282 Device Used LBQC Comments 0.78 ft/sec Timed Up and Go (TUG) Score 36.79 Comments /c SPC TUG Impairment Rating 100% Impaired (Score 20) PT-OP-G Mobility & Gait Start: 12/21/21 17:31 Freq: Status: Active Protocol: Document 06/05/22 11:15 DCW (Rec: 06/05/22 11:51 DC [id number]) OP Gait Assessment Gait Gait Assistance Required: Standby Assistance Distance (Feet) 282 Able to Maintain Weight Bearing Status Yes During Gait Assistive Devices Assistive Device Gait Belt,Straight Cane Orthotic/Prosthetic Devices or Brace: Yes Gait Deviations General Gait Pattern Ataxic,Decreased Stride Length ,Decreased Feet Clearance, Flexed Trunk,Lateral Trunk Lean,Step-to Gait Factors Limiting Gait Function Factors Limiting Gait Function Abnormal Tonal Influences, Decreased Activity Tolerance, Decreased Strength,Limited Range of Motion,Poor Balance, Poor Safety Awareness Comments Gait Comments Pt ambulates with a step-to gait pattern, keeps his right arm in a flexed, guarded position, slow meenakshi, left foot internally rotated PT-OP-M Strength Start: 12/21/21 17:31 Freq: Status: Active Protocol: Document 06/05/22 11:15 DCW (Rec: 06/05/22 11:51 DCW [id number]) Hip Strength Hip Manual Muscle Testing Right Flexion (L2) 2+ Poor+ Extension (S1) 3- Fair- Abduction 2- Poor- Adduction 3 Fair External Rotation 2 Poor Internal Rotation 2 Poor Left Flexion (L2) 4+ Good+ Extension (S1) 4+ Good+ Abduction 5 Normal Adduction 4+ Good+ External Rotation 4 Good Internal Rotation 4 Good Knee Strength Knee Manual Muscle Testing Right Flexion (S2) 3- Fair- Extension (L3) 3+ Fair+ Left Flexion (S2) 5 Normal Extension (L3) 5 Normal Ankle/Foot Strength Ankle and Foot Manual Muscle Testing Left Dorsiflexion (L4) 5 Normal Plantarflexion (S1) 5 Normal Right Comments AFO PT-OP-Q Treatments Start: 12/21/21 17:31 Freq: Status: Active Protocol: Document 07/17/22 14:32 SP (Rec: 07/17/22 15:27 SP [id number]) Cardio Equipment Recumbent Elliptical (Hyper Urban Level User [place]) Duration (Minutes) 5 Resistance 5 Seat Position 8 Other left UE/ ralph LE's: 288 Gym Equipment Shuttle Recovery Unilateral Squats Details B Resistance L 50#, R 37# Shuttle Recovery Platform Stable Reps/Time 15, 10 L; 10, 15 ?R Bilateral Squats Details small yellow ball between knees Resistance 75# Shuttle Recovery Platform Stable Reps/Time x20 Therapeutic Exercises Standing Exercises step up/ down Standing Exercise Name fwd, side stepping Side bilateral Resistance 5# leg wt (therapist knee front pt R knee safety ext) Equipment Used Rail LUE 6 step Reps/Minutes x5 reps each LE lead up RLE, seated rest then lean LLE down Comments cued tall posture, LUE elbow straight/R quad fac ascend/ desc Neuro Re-Education Treatment Balance Activities squat objects off floor Details WBOS squat stability Surface WBOS Equipment transfer between pods (1 ball 2 pods) Reps/Duration 4 x sets Comments CGA, stable, improve wt shift into RLE uneven surface balance Details NBOS, stagger Surface blue foamfoam Equipment L HR prn when needed, CGA-5%A Reps/Duration EO Comments EO: HT horizonal/ vertical Next tx: continue EC uneven surface Details wt shift f/b/s Equipment rocker board Reps/Duration 5 min Comments cued R knee quad facilitation PT-OP-T Assessment and Plan Start: 12/21/21 17:31 Freq: Status: Active Protocol: Document 07/17/22 14:32 SP (Rec: 07/17/22 15:27 SP [id number]) Physical Therapy Assessment Goals Three Impairment Pt in high falls-risk category Short Term Goal (STG) Pt to improve 6MWT distance by at least 180' to 467' 01/19/22: baseline assessment: 217 ft in 6 min w/ LBQC. 02/09/22: 259 ft in 6 min w/ SBQC 3 pt gait maintaining 70- 72 bpm w/ metronome. 02/13/22: 189 ft in 6min w/qc decrease to 65 bpm metronome with 2 brief stand rests, need to sit in chair end 6MWT, decline head turn ask 30 ft further to bike, nodded yes when asked if dizzy. 03/12/22: Minimal change since eval 06/05/22: Minimal change since eval STG Duration 07/19/22 Care Home Goal (LTG) Pt to increase Bajwa score by at least 7 points to 35/56 to demonstrate a decrease in his falls risk 01/23/22: Bajwa Balance Score 24 /56 today 03/12/22: scores 31/56 today 06/05/22: Met, 41/56. NEW GOAL: Bajwa score of 45/56 to demonstrate low falls risk LTG Duration 09/03/22 Two Impairment Pt exhibits R LE MMT measured between 2-/5 to 3+/5 Dietary Services Director Goal (LTG) Pt to improve R LE MMT in all planes to at least 3/5 01/23/22: no significant change noted with MMT today 03/12/22: no significant change noted with MMT today LTG Duration 09/03/22 One Impairment Pt does not participate in an appropriate home exercise program Short Term Goal (STG) Pt to be compliant with an approrpiate HEP 01/23/22: patient indicated not doing exercises at home, though also had quizzical look on face when asked about exercises. Has previously been issued written HEP. STG Duration 07/19/22 Questionable compliance Assessment Summary Assessment Pt improved wt shift into RLE functional strengthening quad/ HS during rocker board and squat object transfer without LUE support today. Physical Therapy Plan Frequency and Duration Frequency of Treatment 2x/Week Duration of Treatment 90 days Plan of Care Start Date 06/05/22 Plan of Care End Date 09/03/22 Therapeutic Interventions Therapeutic Interventions Aquatic Therapy,Balance Training,Gait Training,Home Exercise Program,Joint Mobilizations,Manual Therapy, Neuromuscular Re-education, Patient/Caregiver Education, Self-Care/Home Management,Soft Tissue Mobilization, Therapeutic Activities, Therapeutic Exercises Next Visit Focus/Plan Next Note Type Treatment Note Next Visit Plan POC: Warm up bike, shuttle balance, progress 2pt gait, functional strength and balance challenges.
--- NOTE | 2022-07-19 15:16 | PT.OTN ---
Current Diagnoses Ataxic gait (07/19/22) Other abnormalities of gait and mobility (07/19/22) Weakness (07/19/22) Personal history of transient ischemic attack (TIA), and cerebral infarction without residual deficits (07/19/22) History of falling (07/19/22) Physical Therapy Treatment Note PT-OP-A Visit Information Start: 12/21/21 17:31 Freq: Status: Active Protocol: Document 07/19/22 14:34 DCW (Rec: 07/19/22 15:16 DCW [id number]) Out-Patient Physical Therapy Visit Information Visit Information Visit Type Treatment Note Visit Start Time 14:34 Visit Stop Time 15:15 Total Visit Minutes 41 Visit Number 45 Number of ASPHALT STILL OPERATOR Visits 0 Evaluation Information Evaluation Date 12/21/21 Precautions Precautions expressive aphasia PT-OP-B Current Condition Start: 12/21/21 17:31 Freq: Status: Active Protocol: Document 02/21/22 08:19 SAK (Rec: 02/21/22 08:59 SAK [id number]) Current Condition History of Current Condition Onset Date 2013 Current Complaints Decreased strength, stamina, near falls History of Current Condition Pt is a 66 year old male very well known to this clinic who comes in to skilled PT today with a recent decline in functional mobility, strength, activity tolerance, and balance. Pt had suffered a CVA in 2013, and has been seen multiple times at this clinic since that time to improve balance and activity tolerance . At baseline, pt has fairly significant right hemiparesis and is almost entirely non- verbal. 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 Pt's notes that pt has been experiencing some problems with his lab values, especially a decrease in sodium and iron. also notes that previously, pt would enjoy going out around the town, but now he just prefers to stay home and only moves around from his chair to the bathroom and back. During prior rounds of PT, it has been difficult to convince Sukh to participate in his HEP, however his notes that their son-in-law recently became a ASPHALT STILL OPERATOR, so they are hopeful that he will be able to help direct a more comprehensive HEP. PT-OP-C Subjective Start: 12/21/21 17:31 Freq: Status: Active Protocol: Document 07/19/22 14:34 DCW (Rec: 07/19/22 15:16 DCW [id number]) OP-PT Subjective Patient Comments Patient Comments Pt family member who dropped him off today warned that he is moving slow today. PT-OP-D Balance Start: 12/21/21 17:31 Freq: Status: Active Protocol: Document 06/05/22 11:15 DCW (Rec: 06/05/22 11:51 DCW [id number]) Balance Tests Bajwa Balance Test Bajwa Balance Test Score 41/56 Bajwa Impairment Rating 20 to 39% Impaired (Score 34- 44) Bajwa Balance Assessment Evaluation Sitting to Standing Ability Independent w/Hands Unsupported Stance Safely- 2 minutes Sitting Unsupported, Feet on Floor Safely- 2 minutes Standing to Sitting Ability Assist, Control w/Hands Transfer Ability Safely, Hand Use Unsupported Stance- Eyes Closed Safely, 10 seconds Unsupported Stance- Eyes Open Independent, 1 minute Reaching Forward Standing Safely, 5 inches Pick- Up Object From Floor Supervision Look Behind Shoulder - Standing Shifts Weight Unilateral Turning 360 Degrees Turns slowly, but safely Unsupported Stance, Alternating Feet on 2 Steps w/Minimum Assist Stair Unsupported Tandem Stance Holds Tandem- 30 seconds Unilateral Leg Stance Lifts Leg/Unable to Hold Total Score Bajwa Total Score (out of 56 points) 41 Bajwa Impairment Rating 20 to 39% Impaired (Score 34- 44) PT-OP-E Functional Tests Start: 12/21/21 17:31 Freq: Status: Active Protocol: Document 06/05/22 11:15 DCW (Rec: 06/05/22 11:51 DC [id number]) Functional Tests 6 Minute Walk Test Distance 282 Device Used LBQC Comments 0.78 ft/sec Timed Up and Go (TUG) Score 36.79 Comments /c SPC TUG Impairment Rating 100% Impaired (Score 20) PT-OP-G Mobility & Gait Start: 12/21/21 17:31 Freq: Status: Active Protocol: Document 06/05/22 11:15 DCW (Rec: 06/05/22 11:51 DC [id number]) OP Gait Assessment Gait Gait Assistance Required: Standby Assistance Distance (Feet) 282 Able to Maintain Weight Bearing Status Yes During Gait Assistive Devices Assistive Device Gait Belt,Straight Cane Orthotic/Prosthetic Devices or Brace: Yes Gait Deviations General Gait Pattern Ataxic,Decreased Stride Length ,Decreased Feet Clearance, Flexed Trunk,Lateral Trunk Lean,Step-to Gait Factors Limiting Gait Function Factors Limiting Gait Function Abnormal Tonal Influences, Decreased Activity Tolerance, Decreased Strength,Limited Range of Motion,Poor Balance, Poor Safety Awareness Comments Gait Comments Pt ambulates with a step-to gait pattern, keeps his right arm in a flexed, guarded position, slow meenakshi, left foot internally rotated PT-OP-M Strength Start: 12/21/21 17:31 Freq: Status: Active Protocol: Document 06/05/22 11:15 DCW (Rec: 06/05/22 11:51 DCW [id number]) Hip Strength Hip Manual Muscle Testing Right Flexion (L2) 2+ Poor+ Extension (S1) 3- Fair- Abduction 2- Poor- Adduction 3 Fair External Rotation 2 Poor Internal Rotation 2 Poor Left Flexion (L2) 4+ Good+ Extension (S1) 4+ Good+ Abduction 5 Normal Adduction 4+ Good+ External Rotation 4 Good Internal Rotation 4 Good Knee Strength Knee Manual Muscle Testing Right Flexion (S2) 3- Fair- Extension (L3) 3+ Fair+ Left Flexion (S2) 5 Normal Extension (L3) 5 Normal Ankle/Foot Strength Ankle and Foot Manual Muscle Testing Left Dorsiflexion (L4) 5 Normal Plantarflexion (S1) 5 Normal Right Comments AFO PT-OP-Q Treatments Start: 12/21/21 17:31 Freq: Status: Active Protocol: Document 07/19/22 14:34 DCW (Rec: 07/19/22 15:16 DCW [id number]) Cardio Equipment Recumbent Elliptical (Biodex) Duration (Minutes) 5 Resistance 5 Seat Position 8 Other left UE/ ralph LE's: 288 Gym Equipment Shuttle Recovery Unilateral Squats Details B Resistance L 50#, R 37# Shuttle Recovery Platform Stable Reps/Time 2x15 Bilateral Squats Details small yellow ball between knees Resistance 75# Shuttle Recovery Platform Stable Reps/Time x25 Shuttle Balance red clips Details balance fwd/bck Comments Wide NATE, Stagger stance w/ CGA- Min A Therapeutic Exercises Standing Exercises step up/ down Standing Exercise Name fwd, side stepping Side bilateral Resistance 5# leg wt (therapist knee front pt R knee safety ext) Equipment Used Rail LUE 6 step Reps/Minutes x5 reps each LE lead up RLE, seated rest then lean LLE down Comments cued tall posture, LUE elbow straight/R quad fac ascend/ desc Neuro Re-Education Treatment Balance Activities hurdles Details forward, side-stepping Surface firm Equipment 6 hurdles, QC, 5# leg wts LLE only today Reps/Duration x1 laps , no resistance back Comments good effort hip flexion. CG-10 %A lead RLE, QC on L, x1 R foot caught 1 marlen min A for recovery. PT-OP-T Assessment and Plan Start: 12/21/21 17:31 Freq: Status: Active Protocol: Document 07/19/22 14:34 DCW (Rec: 07/19/22 15:16 DCW [id number]) Physical Therapy Assessment Goals Three Impairment Pt in high falls-risk category Short Term Goal (STG) Pt to improve 6MWT distance by at least 180' to 467' 01/19/22: baseline assessment: 217 ft in 6 min w/ LBQC. 02/09/22: 259 ft in 6 min w/ SBQC 3 pt gait maintaining 70- 72 bpm w/ metronome. 02/13/22: 189 ft in 6min w/qc decrease to 65 bpm metronome with 2 brief stand rests, need to sit in chair end 6MWT, decline head turn ask 30 ft further to bike, nodded yes when asked if dizzy. 03/12/22: Minimal change since eval 06/05/22: Minimal change since eval STG Duration 07/19/22 Oil Field Tester Goal (LTG) Pt to increase Bajwa score by at least 7 points to 35/56 to demonstrate a decrease in his falls risk 01/23/22: Bajwa Balance Score 24 /56 today 03/12/22: scores 31/56 today 06/05/22: Met, 41/56. NEW GOAL: Bajwa score of 45/56 to demonstrate low falls risk LTG Duration 09/03/22 Two Impairment Pt exhibits R LE MMT measured between 2-/5 to 3+/5 Fdc Goal (LTG) Pt to improve R LE MMT in all planes to at least 3/5 01/23/22: no significant change noted with MMT today 03/12/22: no significant change noted with MMT today LTG Duration 09/03/22 One Impairment Pt does not participate in an appropriate home exercise program Short Term Goal (STG) Pt to be compliant with an approrpiate HEP 01/23/22: patient indicated not doing exercises at home, though also had quizzical look on face when asked about exercises. Has previously been issued written HEP. STG Duration 07/19/22 Questionable compliance Assessment Summary Assessment Pt noticeably slower and seemingly fatigued today, but did fairly well with all presented challenges. Did require a few more rest breaks today. Physical Therapy Plan Frequency and Duration Frequency of Treatment 2x/Week Duration of Treatment 90 days Plan of Care Start Date 06/05/22 Plan of Care End Date 09/03/22 Therapeutic Interventions Therapeutic Interventions Aquatic Therapy,Balance Training,Gait Training,Home Exercise Program,Joint Mobilizations,Manual Therapy, Neuromuscular Re-education, Patient/Caregiver Education, Self-Care/Home Management,Soft Tissue Mobilization, Therapeutic Activities, Therapeutic Exercises Next Visit Focus/Plan Next Note Type Treatment Note Next Visit Plan POC: Warm up bike, shuttle balance, progress 2pt gait, functional strength and balance challenges.
--- NOTE | 2022-07-24 15:18 | PT.OTN ---
Current Diagnoses Ataxic gait (07/24/22) Other abnormalities of gait and mobility (07/24/22) Weakness (07/24/22) Personal history of transient ischemic attack (TIA), and cerebral infarction without residual deficits (07/24/22) History of falling (07/24/22) Physical Therapy Treatment Note PT-OP-A Visit Information Start: 12/21/21 17:31 Freq: Status: Active Protocol: Document 07/24/22 14:36 SP (Rec: 07/24/22 15:56 SP [id number]) Out-Patient Physical Therapy Visit Information Visit Information Visit Type Treatment Note Visit Start Time 14:36 Visit Stop Time 15:18 Total Visit Minutes 42 Visit Number 46 Number of BOARD CERTIFIED MUSIC THERAPIST Visits 1 Evaluation Information Evaluation Date 12/21/21 Precautions Precautions expressive aphasia PT-OP-B Current Condition Start: 12/21/21 17:31 Freq: Status: Active Protocol: Document 02/21/22 08:19 SAK (Rec: 02/21/22 08:59 SAK [id number]) Current Condition History of Current Condition Onset Date 2013 Current Complaints Decreased strength, stamina, near falls History of Current Condition Pt is a 66 year old male very well known to this clinic who comes in to skilled PT today with a recent decline in functional mobility, strength, activity tolerance, and balance. Pt had suffered a CVA in 2013, and has been seen multiple times at this clinic since that time to improve balance and activity tolerance . At baseline, pt has fairly significant right hemiparesis and is almost entirely non- verbal. 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 Pt's notes that pt has been experiencing some problems with his lab values, especially a decrease in sodium and iron. also notes that previously, pt would enjoy going out around the town, but now he just prefers to stay home and only moves around from his chair to the bathroom and back. During prior rounds of PT, it has been difficult to convince Sukh to participate in his HEP, however his notes that their son-in-law recently became a BOARD CERTIFIED MUSIC THERAPIST, so they are hopeful that he will be able to help direct a more comprehensive HEP. PT-OP-C Subjective Start: 12/21/21 17:31 Freq: Status: Active Protocol: Document 07/24/22 14:36 SP (Rec: 07/24/22 15:56 SP [id number]) OP-PT Subjective Patient Comments Patient Comments Pt nooded indicating doing well when asked. PT-OP-D Balance Start: 12/21/21 17:31 Freq: Status: Active Protocol: Document 06/05/22 11:15 DCW (Rec: 06/05/22 11:51 DCW [id number]) Balance Tests Bajwa Balance Test Bajwa Balance Test Score 41/56 Bajwa Impairment Rating 20 to 39% Impaired (Score 34- 44) Bajwa Balance Assessment Evaluation Sitting to Standing Ability Independent w/Hands Unsupported Stance Safely- 2 minutes Sitting Unsupported, Feet on Floor Safely- 2 minutes Standing to Sitting Ability Assist, Control w/Hands Transfer Ability Safely, Hand Use Unsupported Stance- Eyes Closed Safely, 10 seconds Unsupported Stance- Eyes Open Independent, 1 minute Reaching Forward Standing Safely, 5 inches Pick- Up Object From Floor Supervision Look Behind Shoulder - Standing Shifts Weight Unilateral Turning 360 Degrees Turns slowly, but safely Unsupported Stance, Alternating Feet on 2 Steps w/Minimum Assist Stair Unsupported Tandem Stance Holds Tandem- 30 seconds Unilateral Leg Stance Lifts Leg/Unable to Hold Total Score Bajwa Total Score (out of 56 points) 41 Bajwa Impairment Rating 20 to 39% Impaired (Score 34- 44) PT-OP-E Functional Tests Start: 12/21/21 17:31 Freq: Status: Active Protocol: Document 06/05/22 11:15 DCW (Rec: 06/05/22 11:51 DC [id number]) Functional Tests 6 Minute Walk Test Distance 282 Device Used LBQC Comments 0.78 ft/sec Timed Up and Go (TUG) Score 36.79 Comments /c SPC TUG Impairment Rating 100% Impaired (Score 20) PT-OP-G Mobility & Gait Start: 12/21/21 17:31 Freq: Status: Active Protocol: Document 06/05/22 11:15 DCW (Rec: 06/05/22 11:51 DC [id number]) OP Gait Assessment Gait Gait Assistance Required: Standby Assistance Distance (Feet) 282 Able to Maintain Weight Bearing Status Yes During Gait Assistive Devices Assistive Device Gait Belt,Straight Cane Orthotic/Prosthetic Devices or Brace: Yes Gait Deviations General Gait Pattern Ataxic,Decreased Stride Length ,Decreased Feet Clearance, Flexed Trunk,Lateral Trunk Lean,Step-to Gait Factors Limiting Gait Function Factors Limiting Gait Function Abnormal Tonal Influences, Decreased Activity Tolerance, Decreased Strength,Limited Range of Motion,Poor Balance, Poor Safety Awareness Comments Gait Comments Pt ambulates with a step-to gait pattern, keeps his right arm in a flexed, guarded position, slow meenakshi, left foot internally rotated PT-OP-M Strength Start: 12/21/21 17:31 Freq: Status: Active Protocol: Document 06/05/22 11:15 DCW (Rec: 06/05/22 11:51 DCW [id number]) Hip Strength Hip Manual Muscle Testing Right Flexion (L2) 2+ Poor+ Extension (S1) 3- Fair- Abduction 2- Poor- Adduction 3 Fair External Rotation 2 Poor Internal Rotation 2 Poor Left Flexion (L2) 4+ Good+ Extension (S1) 4+ Good+ Abduction 5 Normal Adduction 4+ Good+ External Rotation 4 Good Internal Rotation 4 Good Knee Strength Knee Manual Muscle Testing Right Flexion (S2) 3- Fair- Extension (L3) 3+ Fair+ Left Flexion (S2) 5 Normal Extension (L3) 5 Normal Ankle/Foot Strength Ankle and Foot Manual Muscle Testing Left Dorsiflexion (L4) 5 Normal Plantarflexion (S1) 5 Normal Right Comments AFO PT-OP-Q Treatments Start: 12/21/21 17:31 Freq: Status: Active Protocol: Document 07/24/22 14:36 SP (Rec: 07/24/22 15:56 SP [id number]) Gym Equipment Shuttle Recovery Unilateral Squats Details B Resistance L 50#, R 37# Shuttle Recovery Platform Stable Reps/Time 2x15 Bilateral Squats Details small yellow ball between knees Resistance 75#> 87# Shuttle Recovery Platform Stable Reps/Time 2x15 Shuttle Balance red clips Details balance fwd/bck Comments Wide NATE, Stagger stance w/ CGA- 10% A Therapeutic Exercises Sitting Exercises STS Resistance 20%A> 5%A Equipment Used 20 black table w/ blue foam under BLE Comments cued hip hinge forward Standing Exercises curb stepping Standing Exercise Name ascend/ descend using QC Resistance CGA GB no need stable QC Equipment Used 6-8 curb out front Reps/Minutes x4 reps Comments good sequence lead LLE asc, RLE descend, QC advanced positioning Gait Training Gait Activity gait Description 3 point pattern, cues for inc speed 2 pt gait, RLE //LLE Device Used LBQC, gait belt Level of Assistance CGA Surface firm, carpet and tile, outside sidewalk. Distance/Duration 170 ft x 2 Treatment Focus 3 point pattern, increase speed, B feet // Comments cued increased step length receiprocal patterning, feet / / Neuro Re-Education Treatment Balance Activities uneven surface balance Details NBOS, stagger Surface blue foamfoam Equipment L HR prn when needed, CGA-5%A Reps/Duration EO Comments 1. EO: HT horizonal/ vertical 2. EO: perturbations: nudges each side then isometric lean then recover removed pressure each direction. Good recovery. Next tx: continue EC PT-OP-T Assessment and Plan Start: 12/21/21 17:31 Freq: Status: Active Protocol: Document 07/24/22 14:36 SP (Rec: 07/24/22 15:56 SP [id number]) Physical Therapy Assessment Goals Three Impairment Pt in high falls-risk category Short Term Goal (STG) Pt to improve 6MWT distance by at least 180' to 467' 01/19/22: baseline assessment: 217 ft in 6 min w/ LBQC. 02/09/22: 259 ft in 6 min w/ SBQC 3 pt gait maintaining 70- 72 bpm w/ metronome. 02/13/22: 189 ft in 6min w/qc decrease to 65 bpm metronome with 2 brief stand rests, need to sit in chair end 6MWT, decline head turn ask 30 ft further to bike, nodded yes when asked if dizzy. 03/12/22: Minimal change since eval 06/05/22: Minimal change since eval STG Duration 07/19/22 Button Bradder Goal (LTG) Pt to increase Bajwa score by at least 7 points to 35/56 to demonstrate a decrease in his falls risk 01/23/22: Bajwa Balance Score 24 /56 today 03/12/22: scores 31/56 today 06/05/22: Met, 41/56. NEW GOAL: Bajwa score of 45/56 to demonstrate low falls risk LTG Duration 09/03/22 Two Impairment Pt exhibits R LE MMT measured between 2-/5 to 3+/5 Button Bradder Goal (LTG) Pt to improve R LE MMT in all planes to at least 3/5 01/23/22: no significant change noted with MMT today 03/12/22: no significant change noted with MMT today LTG Duration 09/03/22 One Impairment Pt does not participate in an appropriate home exercise program Short Term Goal (STG) Pt to be compliant with an approrpiate HEP 01/23/22: patient indicated not doing exercises at home, though also had quizzical look on face when asked about exercises. Has previously been issued written HEP. STG Duration 07/19/22 Questionable compliance Assessment Summary Assessment Pt improved ascend/descend curb without cues for sequencing nor need QC stabilization today. Improved recovery perturbations on uneven surface balance. Physical Therapy Plan Frequency and Duration Frequency of Treatment 2x/Week Duration of Treatment 90 days Plan of Care Start Date 06/05/22 Plan of Care End Date 09/03/22 Therapeutic Interventions Therapeutic Interventions Aquatic Therapy,Balance Training,Gait Training,Home Exercise Program,Joint Mobilizations,Manual Therapy, Neuromuscular Re-education, Patient/Caregiver Education, Self-Care/Home Management,Soft Tissue Mobilization, Therapeutic Activities, Therapeutic Exercises Next Visit Focus/Plan Next Note Type Treatment Note Next Visit Plan POC: Warm up bike, shuttle balance, progress 2pt gait, functional strength and balance challenges.
--- NOTE | 2022-07-26 15:18 | PT.OTN ---
Current Diagnoses Ataxic gait (07/26/22) Other abnormalities of gait and mobility (07/26/22) Weakness (07/26/22) Personal history of transient ischemic attack (TIA), and cerebral infarction without residual deficits (07/26/22) History of falling (07/26/22) Physical Therapy Treatment Note PT-OP-A Visit Information Start: 12/21/21 17:31 Freq: Status: Active Protocol: Document 07/26/22 14:35 SP (Rec: 07/26/22 16:02 SP [id number]) Out-Patient Physical Therapy Visit Information Visit Information Visit Type Treatment Note Visit Start Time 14:35 Visit Stop Time 15:18 Total Visit Minutes 42 Visit Number 47 Number of STENO POOL SUPERVISOR Visits 2 Evaluation Information Evaluation Date 12/21/21 Precautions Precautions expressive aphasia PT-OP-B Current Condition Start: 12/21/21 17:31 Freq: Status: Active Protocol: Document 02/21/22 08:19 SAK (Rec: 02/21/22 08:59 SAK [id number]) Current Condition History of Current Condition Onset Date 2013 Current Complaints Decreased strength, stamina, near falls History of Current Condition Pt is a 66 year old male very well known to this clinic who comes in to skilled PT today with a recent decline in functional mobility, strength, activity tolerance, and balance. Pt had suffered a CVA in 2013, and has been seen multiple times at this clinic since that time to improve balance and activity tolerance . At baseline, pt has fairly significant right hemiparesis and is almost entirely non- verbal. 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 Pt's notes that pt has been experiencing some problems with his lab values, especially a decrease in sodium and iron. also notes that previously, pt would enjoy going out around the town, but now he just prefers to stay home and only moves around from his chair to the bathroom and back. During prior rounds of PT, it has been difficult to convince Sukh to participate in his HEP, however his notes that their son-in-law recently became a STENO POOL SUPERVISOR, so they are hopeful that he will be able to help direct a more comprehensive HEP. PT-OP-C Subjective Start: 12/21/21 17:31 Freq: Status: Active Protocol: Document 07/26/22 14:35 SP (Rec: 07/26/22 16:02 SP [id number]) OP-PT Subjective Patient Comments Patient Comments Pt pointed to his R foot, taking off R shoe, nodded head indicating yes when asked if need to look at skin. PT-OP-D Balance Start: 12/21/21 17:31 Freq: Status: Active Protocol: Document 06/05/22 11:15 DCW (Rec: 06/05/22 11:51 DCW [id number]) Balance Tests Bajwa Balance Test Bajwa Balance Test Score 41/56 Bajwa Impairment Rating 20 to 39% Impaired (Score 34- 44) Bajwa Balance Assessment Evaluation Sitting to Standing Ability Independent w/Hands Unsupported Stance Safely- 2 minutes Sitting Unsupported, Feet on Floor Safely- 2 minutes Standing to Sitting Ability Assist, Control w/Hands Transfer Ability Safely, Hand Use Unsupported Stance- Eyes Closed Safely, 10 seconds Unsupported Stance- Eyes Open Independent, 1 minute Reaching Forward Standing Safely, 5 inches Pick- Up Object From Floor Supervision Look Behind Shoulder - Standing Shifts Weight Unilateral Turning 360 Degrees Turns slowly, but safely Unsupported Stance, Alternating Feet on 2 Steps w/Minimum Assist Stair Unsupported Tandem Stance Holds Tandem- 30 seconds Unilateral Leg Stance Lifts Leg/Unable to Hold Total Score Bajwa Total Score (out of 56 points) 41 Bajwa Impairment Rating 20 to 39% Impaired (Score 34- 44) PT-OP-E Functional Tests Start: 12/21/21 17:31 Freq: Status: Active Protocol: Document 06/05/22 11:15 DCW (Rec: 06/05/22 11:51 DCW [id number]) Functional Tests 6 Minute Walk Test Distance 282 Device Used LBQC Comments 0.78 ft/sec Timed Up and Go (TUG) Score 36.79 Comments /c SPC TUG Impairment Rating 100% Impaired (Score 20) PT-OP-G Mobility & Gait Start: 12/21/21 17:31 Freq: Status: Active Protocol: Document 06/05/22 11:15 DCW (Rec: 06/05/22 11:51 DCW [id number]) OP Gait Assessment Gait Gait Assistance Required: Standby Assistance Distance (Feet) 282 Able to Maintain Weight Bearing Status Yes During Gait Assistive Devices Assistive Device Gait Belt,Straight Cane Orthotic/Prosthetic Devices or Brace: Yes Gait Deviations General Gait Pattern Ataxic,Decreased Stride Length ,Decreased Feet Clearance, Flexed Trunk,Lateral Trunk Lean,Step-to Gait Factors Limiting Gait Function Factors Limiting Gait Function Abnormal Tonal Influences, Decreased Activity Tolerance, Decreased Strength,Limited Range of Motion,Poor Balance, Poor Safety Awareness Comments Gait Comments Pt ambulates with a step-to gait pattern, keeps his right arm in a flexed, guarded position, slow meenakshi, left foot internally rotated PT-OP-M Strength Start: 12/21/21 17:31 Freq: Status: Active Protocol: Document 06/05/22 11:15 DCW (Rec: 06/05/22 11:51 DCW [id number]) Hip Strength Hip Manual Muscle Testing Right Flexion (L2) 2+ Poor+ Extension (S1) 3- Fair- Abduction 2- Poor- Adduction 3 Fair External Rotation 2 Poor Internal Rotation 2 Poor Left Flexion (L2) 4+ Good+ Extension (S1) 4+ Good+ Abduction 5 Normal Adduction 4+ Good+ External Rotation 4 Good Internal Rotation 4 Good Knee Strength Knee Manual Muscle Testing Right Flexion (S2) 3- Fair- Extension (L3) 3+ Fair+ Left Flexion (S2) 5 Normal Extension (L3) 5 Normal Ankle/Foot Strength Ankle and Foot Manual Muscle Testing Left Dorsiflexion (L4) 5 Normal Plantarflexion (S1) 5 Normal Right Comments AFO PT-OP-Q Treatments Start: 12/21/21 17:31 Freq: Status: Active Protocol: Document 07/26/22 14:35 SP (Rec: 07/26/22 16:02 SP [id number]) Gym Equipment Shuttle Recovery Unilateral Squats Details B Resistance L 50#, R 37# Shuttle Recovery Platform Stable Reps/Time 2x15 Bilateral Squats Details small yellow ball between knees Resistance 87# Shuttle Recovery Platform Stable Reps/Time 2x15 Therapeutic Exercises Sitting Exercises STS Resistance 5%A> CGA Equipment Used from chair near hallway, LUE WB on L LE for self support Reps/Minutes x5 reps Comments cued hip hinge forward Gait Training Gait Activity uneven surface Description increase wt shift into RLE WB =, balance recovery, sequencing QC/LEs pos Device Used QC, GB Level of Assistance CGA Surface indoors: 1 blut mats, folded yoga at on top, 4 hurdles, 4 step Distance/Duration 2 laps Treatment Focus balance recovery, increase WB into RLE Comments cued foot clearance, body closer to marlen prior to step over. LIght contact (2%A) on QC during uneven mat for safety stability. Neuro Re-Education Treatment Balance Activities squat objects off floor Details WBOS squat stability wt shift WB into RLE Surface WBOS Equipment transfer between cones Reps/Duration 4 x sets Comments CGA, stable, improve wt shift into RLE Self-Care/Home Management Treatment Education Patient Education Joint Protection,Safety Caregiver Education STENO POOL SUPERVISOR inspected R foot, old almost healed scab on R PIP of 1st MTP not concerning with possible shoe stitching being the cause, little pink lateral 5th MTP shaft and mid tibia but all not concerning and shook head no when asked if anything hurt. STENO POOL SUPERVISOR asked if any foot concerns (she was at desk making appts), discussed pt and described above to continue to watch/perform skin checks for safety. Both agreed will do. PT-OP-T Assessment and Plan Start: 12/21/21 17:31 Freq: Status: Active Protocol: Document 07/26/22 14:35 SP (Rec: 07/26/22 16:02 SP [id number]) Physical Therapy Assessment Goals Three Impairment Pt in high falls-risk category Short Term Goal (STG) Pt to improve 6MWT distance by at least 180' to 467' 01/19/22: baseline assessment: 217 ft in 6 min w/ LBQC. 02/09/22: 259 ft in 6 min w/ SBQC 3 pt gait maintaining 70- 72 bpm w/ metronome. 02/13/22: 189 ft in 6min w/qc decrease to 65 bpm metronome with 2 brief stand rests, need to sit in chair end 6MWT, decline head turn ask 30 ft further to bike, nodded yes when asked if dizzy. 03/12/22: Minimal change since eval 06/05/22: Minimal change since eval STG Duration 07/19/22 Correction Goal (LTG) Pt to increase Bajwa score by at least 7 points to 35/56 to demonstrate a decrease in his falls risk 01/23/22: Bajwa Balance Score 24 /56 today 03/12/22: scores 31/56 today 06/05/22: Met, 41/56. NEW GOAL: Bajwa score of 45/56 to demonstrate low falls risk LTG Duration 09/03/22 Two Impairment Pt exhibits R LE MMT measured between 2-/5 to 3+/5 Potato Chip Fryer Goal (LTG) Pt to improve R LE MMT in all planes to at least 3/5 01/23/22: no significant change noted with MMT today 03/12/22: no significant change noted with MMT today LTG Duration 09/03/22 One Impairment Pt does not participate in an appropriate home exercise program Short Term Goal (STG) Pt to be compliant with an approrpiate HEP 01/23/22: patient indicated not doing exercises at home, though also had quizzical look on face when asked about exercises. Has previously been issued written HEP. STG Duration 07/19/22 Questionable compliance Assessment Summary Assessment Pt improved RLE WB during uneven surface gait and squat activities reaching outside NATE to R. CGA-5%A for balance recovery when RLE caught marlen x1, trailing LE. Cues as needed for QC/ LE positioning. Physical Therapy Plan Frequency and Duration Frequency of Treatment 2x/Week Duration of Treatment 90 days Plan of Care Start Date 06/05/22 Plan of Care End Date 09/03/22 Therapeutic Interventions Therapeutic Interventions Aquatic Therapy,Balance Training,Gait Training,Home Exercise Program,Joint Mobilizations,Manual Therapy, Neuromuscular Re-education, Patient/Caregiver Education, Self-Care/Home Management,Soft Tissue Mobilization, Therapeutic Activities, Therapeutic Exercises Next Visit Focus/Plan Next Note Type Treatment Note Next Visit Plan Continue obstacle course uneven surface. POC: Warm up bike, shuttle balance, progress 2pt gait, functional strength and balance challenges.
--- NOTE | 2022-07-31 15:22 | PT.OTN ---
Current Diagnoses Ataxic gait (07/31/22) Other abnormalities of gait and mobility (07/31/22) Weakness (07/31/22) Personal history of transient ischemic attack (TIA), and cerebral infarction without residual deficits (07/31/22) History of falling (07/31/22) Physical Therapy Treatment Note PT-OP-A Visit Information Start: 12/21/21 17:31 Freq: Status: Active Protocol: Document 07/31/22 14:30 DCW (Rec: 07/31/22 15:22 DCW [id number]) Out-Patient Physical Therapy Visit Information Visit Information Visit Type Treatment Note Visit Start Time 14:30 Visit Stop Time 15:15 Total Visit Minutes 45 Visit Number 48 Number of SPOUT POSITIONER Visits 0 Evaluation Information Evaluation Date 12/21/21 Precautions Precautions expressive aphasia PT-OP-B Current Condition Start: 12/21/21 17:31 Freq: Status: Active Protocol: Document 02/21/22 08:19 SAK (Rec: 02/21/22 08:59 SAK [id number]) Current Condition History of Current Condition Onset Date 2013 Current Complaints Decreased strength, stamina, near falls History of Current Condition Pt is a 66 year old male very well known to this clinic who comes in to skilled PT today with a recent decline in functional mobility, strength, activity tolerance, and balance. Pt had suffered a CVA in 2013, and has been seen multiple times at this clinic since that time to improve balance and activity tolerance . At baseline, pt has fairly significant right hemiparesis and is almost entirely non- verbal. 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 Pt's notes that pt has been experiencing some problems with his lab values, especially a decrease in sodium and iron. also notes that previously, pt would enjoy going out around the town, but now he just prefers to stay home and only moves around from his chair to the bathroom and back. During prior rounds of PT, it has been difficult to convince Sukh to participate in his HEP, however his notes that their son-in-law recently became a SPOUT POSITIONER, so they are hopeful that he will be able to help direct a more comprehensive HEP. PT-OP-C Subjective Start: 12/21/21 17:31 Freq: Status: Active Protocol: Document 07/31/22 14:30 DCW (Rec: 07/31/22 15:22 DC [id number]) OP-PT Subjective Patient Comments Patient Comments Pt indicates he is doing well today with a head nod. PT-OP-D Balance Start: 12/21/21 17:31 Freq: Status: Active Protocol: Document 06/05/22 11:15 DCW (Rec: 06/05/22 11:51 [facility] [id number]) Balance Tests Bajwa Balance Test Bajwa Balance Test Score 41/56 Bajwa Impairment Rating 20 to 39% Impaired (Score 34- 44) Bajwa Balance Assessment Evaluation Sitting to Standing Ability Independent w/Hands Unsupported Stance Safely- 2 minutes Sitting Unsupported, Feet on Floor Safely- 2 minutes Standing to Sitting Ability Assist, Control w/Hands Transfer Ability Safely, Hand Use Unsupported Stance- Eyes Closed Safely, 10 seconds Unsupported Stance- Eyes Open Independent, 1 minute Reaching Forward Standing Safely, 5 inches Pick- Up Object From Floor Supervision Look Behind Shoulder - Standing Shifts Weight Unilateral Turning 360 Degrees Turns slowly, but safely Unsupported Stance, Alternating Feet on 2 Steps w/Minimum Assist Stair Unsupported Tandem Stance Holds Tandem- 30 seconds Unilateral Leg Stance Lifts Leg/Unable to Hold Total Score Bajwa Total Score (out of 56 points) 41 Bajwa Impairment Rating 20 to 39% Impaired (Score 34- 44) PT-OP-E Functional Tests Start: 12/21/21 17:31 Freq: Status: Active Protocol: Document 06/05/22 11:15 DCW (Rec: 06/05/22 11:51 [facility] [id number]) Functional Tests 6 Minute Walk Test Distance 282 Device Used LBQC Comments 0.78 ft/sec Timed Up and Go (TUG) Score 36.79 Comments /c SPC TUG Impairment Rating 100% Impaired (Score 20) PT-OP-G Mobility & Gait Start: 12/21/21 17:31 Freq: Status: Active Protocol: Document 06/05/22 11:15 DCW (Rec: 06/05/22 11:51 [facility] [id number]) OP Gait Assessment Gait Gait Assistance Required: Standby Assistance Distance (Feet) 282 Able to Maintain Weight Bearing Status Yes During Gait Assistive Devices Assistive Device Gait Belt,Straight Cane Orthotic/Prosthetic Devices or Brace: Yes Gait Deviations General Gait Pattern Ataxic,Decreased Stride Length ,Decreased Feet Clearance, Flexed Trunk,Lateral Trunk Lean,Step-to Gait Factors Limiting Gait Function Factors Limiting Gait Function Abnormal Tonal Influences, Decreased Activity Tolerance, Decreased Strength,Limited Range of Motion,Poor Balance, Poor Safety Awareness Comments Gait Comments Pt ambulates with a step-to gait pattern, keeps his right arm in a flexed, guarded position, slow meenakshi, left foot internally rotated PT-OP-M Strength Start: 12/21/21 17:31 Freq: Status: Active Protocol: Document 06/05/22 11:15 DCW (Rec: 06/05/22 11:51 DCW [id number]) Hip Strength Hip Manual Muscle Testing Right Flexion (L2) 2+ Poor+ Extension (S1) 3- Fair- Abduction 2- Poor- Adduction 3 Fair External Rotation 2 Poor Internal Rotation 2 Poor Left Flexion (L2) 4+ Good+ Extension (S1) 4+ Good+ Abduction 5 Normal Adduction 4+ Good+ External Rotation 4 Good Internal Rotation 4 Good Knee Strength Knee Manual Muscle Testing Right Flexion (S2) 3- Fair- Extension (L3) 3+ Fair+ Left Flexion (S2) 5 Normal Extension (L3) 5 Normal Ankle/Foot Strength Ankle and Foot Manual Muscle Testing Left Dorsiflexion (L4) 5 Normal Plantarflexion (S1) 5 Normal Right Comments AFO PT-OP-Q Treatments Start: 12/21/21 17:31 Freq: Status: Active Protocol: Document 07/31/22 14:30 DCW (Rec: 07/31/22 15:22 DCW [id number]) Cardio Equipment Recumbent Elliptical (Biodex) Duration (Minutes) 5 Resistance 5 Seat Position 8 Other left UE/ ralph LE's: 288 Gym Equipment Shuttle Recovery Unilateral Squats Details B Resistance L 50#, R 37# Shuttle Recovery Platform Stable Reps/Time 2x15 Bilateral Squats Details small yellow ball between knees Resistance 87# Shuttle Recovery Platform Stable Reps/Time 2x15 Shuttle Balance red clips Details balance fwd/bck Comments Wide NATE, Stagger stance w/ CGA- 10% A Neuro Re-Education Treatment Balance Activities hurdles Details forward, side-stepping Surface firm Equipment 6 hurdles, // bar Tandem Details Tandem stance Equipment // bars Reps/Duration EO Comments X1 viewing uneven surface Details wt shift f/b/s Equipment rocker board Reps/Duration 5 min Comments cued R knee quad facilitation PT-OP-T Assessment and Plan Start: 12/21/21 17:31 Freq: Status: Active Protocol: Document 07/31/22 14:30 DCW (Rec: 07/31/22 15:22 DCW [id number]) Physical Therapy Assessment Impairments Impairments Activity Tolerance,Balance, Functional Activities, Functional Mobility,Gait,Soft Tissue Mobility,Strength, Transfers Goals Three Impairment Pt in high falls-risk category Short Term Goal (STG) Pt to improve 6MWT distance by at least 180' to 467' 01/19/22: baseline assessment: 217 ft in 6 min w/ LBQC. 02/09/22: 259 ft in 6 min w/ SBQC 3 pt gait maintaining 70- 72 bpm w/ metronome. 02/13/22: 189 ft in 6min w/qc decrease to 65 bpm metronome with 2 brief stand rests, need to sit in chair end 6MWT, decline head turn ask 30 ft further to bike, nodded yes when asked if dizzy. 03/12/22: Minimal change since eval 06/05/22: Minimal change since eval STG Duration 07/19/22 Acrobatic Dancer Goal (LTG) Pt to increase Bajwa score by at least 7 points to 35/56 to demonstrate a decrease in his falls risk 01/23/22: Bajwa Balance Score 24 /56 today 03/12/22: scores 31/56 today 06/05/22: Met, 41/56. NEW GOAL: Bajwa score of 45/56 to demonstrate low falls risk LTG Duration 09/03/22 Two Impairment Pt exhibits R LE MMT measured between 2-/5 to 3+/5 Acrobatic Dancer Goal (LTG) Pt to improve R LE MMT in all planes to at least 3/5 01/23/22: no significant change noted with MMT today 03/12/22: no significant change noted with MMT today LTG Duration 09/03/22 One Impairment Pt does not participate in an appropriate home exercise program Short Term Goal (STG) Pt to be compliant with an approrpiate HEP 01/23/22: patient indicated not doing exercises at home, though also had quizzical look on face when asked about exercises. Has previously been issued written HEP. STG Duration 07/19/22 Questionable compliance Assessment Summary Assessment Pt able to do pretty well today with side-stepping over hurdles, fairly good balance with shuttle balance. Physical Therapy Plan Frequency and Duration Frequency of Treatment 2x/Week Plan of Care Start Date 06/05/22 Plan of Care End Date 09/03/22 Therapeutic Interventions Therapeutic Interventions Aquatic Therapy,Balance Training,Gait Training,Home Exercise Program,Joint Mobilizations,Manual Therapy, Neuromuscular Re-education, Patient/Caregiver Education, Self-Care/Home Management,Soft Tissue Mobilization, Therapeutic Activities, Therapeutic Exercises Next Visit Focus/Plan Next Note Type Treatment Note Next Visit Plan Continue obstacle course uneven surface. POC: Warm up bike, shuttle balance, progress 2pt gait, functional strength and balance challenges.
--- NOTE | 2022-08-02 15:14 | PT.OTN ---
Current Diagnoses Ataxic gait (08/02/22) Other abnormalities of gait and mobility (08/02/22) Weakness (08/02/22) Personal history of transient ischemic attack (TIA), and cerebral infarction without residual deficits (08/02/22) History of falling (08/02/22) Physical Therapy Treatment Note PT-OP-A Visit Information Start: 12/21/21 17:31 Freq: Status: Active Protocol: Document 08/02/22 14:30 DCW (Rec: 08/02/22 15:14 DCW [id number]) Out-Patient Physical Therapy Visit Information Visit Information Visit Type Treatment Note Visit Start Time 14:30 Visit Stop Time 15:15 Total Visit Minutes 45 Visit Number 49 Number of PLASTERER MAINTENANCE Visits 0 Evaluation Information Evaluation Date 12/21/21 Precautions Precautions expressive aphasia PT-OP-B Current Condition Start: 12/21/21 17:31 Freq: Status: Active Protocol: Document 02/21/22 08:19 SAK (Rec: 02/21/22 08:59 SAK [id number]) Current Condition History of Current Condition Onset Date 2013 Current Complaints Decreased strength, stamina, near falls History of Current Condition Pt is a 66 year old male very well known to this clinic who comes in to skilled PT today with a recent decline in functional mobility, strength, activity tolerance, and balance. Pt had suffered a CVA in 2013, and has been seen multiple times at this clinic since that time to improve balance and activity tolerance . At baseline, pt has fairly significant right hemiparesis and is almost entirely non- verbal. 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 Pt's notes that pt has been experiencing some problems with his lab values, especially a decrease in sodium and iron. also notes that previously, pt would enjoy going out around the town, but now he just prefers to stay home and only moves around from his chair to the bathroom and back. During prior rounds of PT, it has been difficult to convince Sukh to participate in his HEP, however his notes that their son-in-law recently became a PLASTERER MAINTENANCE, so they are hopeful that he will be able to help direct a more comprehensive HEP. PT-OP-C Subjective Start: 12/21/21 17:31 Freq: Status: Active Protocol: Document 08/02/22 14:30 DCW (Rec: 08/02/22 15:14 DCW [id number]) OP-PT Subjective Patient Comments Patient Comments Pt indicates he is doing well today. PT-OP-D Balance Start: 12/21/21 17:31 Freq: Status: Active Protocol: Document 06/05/22 11:15 DCW (Rec: 06/05/22 11:51 DCW [id number]) Balance Tests Bajwa Balance Test Bajwa Balance Test Score 41/56 Bajwa Impairment Rating 20 to 39% Impaired (Score 34- 44) Bajwa Balance Assessment Evaluation Sitting to Standing Ability Independent w/Hands Unsupported Stance Safely- 2 minutes Sitting Unsupported, Feet on Floor Safely- 2 minutes Standing to Sitting Ability Assist, Control w/Hands Transfer Ability Safely, Hand Use Unsupported Stance- Eyes Closed Safely, 10 seconds Unsupported Stance- Eyes Open Independent, 1 minute Reaching Forward Standing Safely, 5 inches Pick- Up Object From Floor Supervision Look Behind Shoulder - Standing Shifts Weight Unilateral Turning 360 Degrees Turns slowly, but safely Unsupported Stance, Alternating Feet on 2 Steps w/Minimum Assist Stair Unsupported Tandem Stance Holds Tandem- 30 seconds Unilateral Leg Stance Lifts Leg/Unable to Hold Total Score Bajwa Total Score (out of 56 points) 41 Bajwa Impairment Rating 20 to 39% Impaired (Score 34- 44) PT-OP-E Functional Tests Start: 12/21/21 17:31 Freq: Status: Active Protocol: Document 06/05/22 11:15 DCW (Rec: 06/05/22 11:51 DC [id number]) Functional Tests 6 Minute Walk Test Distance 282 Device Used LBQC Comments 0.78 ft/sec Timed Up and Go (TUG) Score 36.79 Comments /c SPC TUG Impairment Rating 100% Impaired (Score 20) PT-OP-G Mobility & Gait Start: 12/21/21 17:31 Freq: Status: Active Protocol: Document 06/05/22 11:15 DCW (Rec: 06/05/22 11:51 DC [id number]) OP Gait Assessment Gait Gait Assistance Required: Standby Assistance Distance (Feet) 282 Able to Maintain Weight Bearing Status Yes During Gait Assistive Devices Assistive Device Gait Belt,Straight Cane Orthotic/Prosthetic Devices or Brace: Yes Gait Deviations General Gait Pattern Ataxic,Decreased Stride Length ,Decreased Feet Clearance, Flexed Trunk,Lateral Trunk Lean,Step-to Gait Factors Limiting Gait Function Factors Limiting Gait Function Abnormal Tonal Influences, Decreased Activity Tolerance, Decreased Strength,Limited Range of Motion,Poor Balance, Poor Safety Awareness Comments Gait Comments Pt ambulates with a step-to gait pattern, keeps his right arm in a flexed, guarded position, slow meenakshi, left foot internally rotated PT-OP-M Strength Start: 12/21/21 17:31 Freq: Status: Active Protocol: Document 06/05/22 11:15 DCW (Rec: 06/05/22 11:51 DCW [id number]) Hip Strength Hip Manual Muscle Testing Right Flexion (L2) 2+ Poor+ Extension (S1) 3- Fair- Abduction 2- Poor- Adduction 3 Fair External Rotation 2 Poor Internal Rotation 2 Poor Left Flexion (L2) 4+ Good+ Extension (S1) 4+ Good+ Abduction 5 Normal Adduction 4+ Good+ External Rotation 4 Good Internal Rotation 4 Good Knee Strength Knee Manual Muscle Testing Right Flexion (S2) 3- Fair- Extension (L3) 3+ Fair+ Left Flexion (S2) 5 Normal Extension (L3) 5 Normal Ankle/Foot Strength Ankle and Foot Manual Muscle Testing Left Dorsiflexion (L4) 5 Normal Plantarflexion (S1) 5 Normal Right Comments AFO PT-OP-Q Treatments Start: 12/21/21 17:31 Freq: Status: Active Protocol: Document 08/02/22 14:30 DCW (Rec: 08/02/22 15:14 DCW [id number]) Cardio Equipment Recumbent Elliptical (Biodex) Duration (Minutes) 5 Resistance 5 Seat Position 8 Other left UE/ ralph LE's: 288 Gym Equipment Shuttle Recovery Unilateral Squats Details B Resistance L 50#, R 37# Shuttle Recovery Platform Stable Reps/Time 2x15 Bilateral Squats Details small yellow ball between knees Resistance 87# Shuttle Recovery Platform Stable Reps/Time 2x15 Shuttle Balance red clips Details balance fwd/bck Comments Wide NATE, Stagger stance w/ CGA- 10% A Neuro Re-Education Treatment Balance Activities hurdles Details forward, side-stepping Surface firm Equipment 6 hurdles, // bar Tandem Details Tandem stance Equipment // bars Reps/Duration EO Comments X1 viewing PT-OP-T Assessment and Plan Start: 12/21/21 17:31 Freq: Status: Active Protocol: Document 08/02/22 14:30 DCW (Rec: 08/02/22 15:14 DCW [id number]) Physical Therapy Assessment Impairments Impairments Activity Tolerance,Balance, Functional Activities, Functional Mobility,Gait,Soft Tissue Mobility,Strength, Transfers Goals Three Impairment Pt in high falls-risk category Short Term Goal (STG) Pt to improve 6MWT distance by at least 180' to 467' 01/19/22: baseline assessment: 217 ft in 6 min w/ LBQC. 02/09/22: 259 ft in 6 min w/ SBQC 3 pt gait maintaining 70- 72 bpm w/ metronome. 02/13/22: 189 ft in 6min w/qc decrease to 65 bpm metronome with 2 brief stand rests, need to sit in chair end 6MWT, decline head turn ask 30 ft further to bike, nodded yes when asked if dizzy. 03/12/22: Minimal change since eval 06/05/22: Minimal change since eval STG Duration 07/19/22 Senior Care Goal (LTG) Pt to increase Bajwa score by at least 7 points to 35/56 to demonstrate a decrease in his falls risk 01/23/22: Bajwa Balance Score 24 /56 today 03/12/22: scores 31/56 today 06/05/22: Met, 41/56. NEW GOAL: Bajwa score of 45/56 to demonstrate low falls risk LTG Duration 09/03/22 Two Impairment Pt exhibits R LE MMT measured between 2-/5 to 3+/5 Senior Care Goal (LTG) Pt to improve R LE MMT in all planes to at least 3/5 01/23/22: no significant change noted with MMT today 03/12/22: no significant change noted with MMT today LTG Duration 09/03/22 One Impairment Pt does not participate in an appropriate home exercise program Short Term Goal (STG) Pt to be compliant with an approrpiate HEP 01/23/22: patient indicated not doing exercises at home, though also had quizzical look on face when asked about exercises. Has previously been issued written HEP. STG Duration 07/19/22 Questionable compliance Assessment Summary Assessment Pt continues to improve with balance and side-stepping, tends to display fairly low motivation overall, but has been a little more interested recently. Physical Therapy Plan Frequency and Duration Frequency of Treatment 2x/Week Plan of Care Start Date 06/05/22 Plan of Care End Date 09/03/22 Therapeutic Interventions Therapeutic Interventions Aquatic Therapy,Balance Training,Gait Training,Home Exercise Program,Joint Mobilizations,Manual Therapy, Neuromuscular Re-education, Patient/Caregiver Education, Self-Care/Home Management,Soft Tissue Mobilization, Therapeutic Activities, Therapeutic Exercises Next Visit Focus/Plan Next Note Type Treatment Note Next Visit Plan Continue obstacle course uneven surface. POC: Warm up bike, shuttle balance, progress 2pt gait, functional strength and balance challenges.
--- NOTE | 2022-08-07 15:15 | PT.OTN ---
Current Diagnoses Ataxic gait (08/07/22) Other abnormalities of gait and mobility (08/07/22) Weakness (08/07/22) Personal history of transient ischemic attack (TIA), and cerebral infarction without residual deficits (08/07/22) History of falling (08/07/22) Physical Therapy Treatment Note PT-OP-A Visit Information Start: 12/21/21 17:31 Freq: Status: Active Protocol: Document 08/07/22 14:31 SP (Rec: 08/07/22 16:02 SP [id number]) Out-Patient Physical Therapy Visit Information Visit Information Visit Type Treatment Note Visit Note 9/10 visits since last PN. Visit Start Time 14:31 Visit Stop Time 15:15 Total Visit Minutes 44 Visit Number 50 Number of BEHAVIOR CLINICIAN Visits 1 Evaluation Information Evaluation Date 12/21/21 Precautions Precautions expressive aphasia PT-OP-B Current Condition Start: 12/21/21 17:31 Freq: Status: Active Protocol: Document 02/21/22 08:19 SAK (Rec: 02/21/22 08:59 SAK [id number]) Current Condition History of Current Condition Onset Date 2013 Current Complaints Decreased strength, stamina, near falls History of Current Condition Pt is a 66 year old male very well known to this clinic who comes in to skilled PT today with a recent decline in functional mobility, strength, activity tolerance, and balance. Pt had suffered a CVA in 2013, and has been seen multiple times at this clinic since that time to improve balance and activity tolerance . At baseline, pt has fairly significant right hemiparesis and is almost entirely non- verbal. 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 Pt's notes that pt has been experiencing some problems with his lab values, especially a decrease in sodium and iron. also notes that previously, pt would enjoy going out around the town, but now he just prefers to stay home and only moves around from his chair to the bathroom and back. During prior rounds of PT, it has been difficult to convince Sukh to participate in his HEP, however his notes that their son-in-law recently became a BEHAVIOR CLINICIAN, so they are hopeful that he will be able to help direct a more comprehensive HEP. PT-OP-C Subjective Start: 12/21/21 17:31 Freq: Status: Active Protocol: Document 08/07/22 14:31 SP (Rec: 08/07/22 16:02 SP [id number]) OP-PT Subjective Patient Comments Patient Comments Pt indicates he is doing well today with head nod when asked , head turn when asked if anything concerning indicating no. PT-OP-D Balance Start: 12/21/21 17:31 Freq: Status: Active Protocol: Document 06/05/22 11:15 DCW (Rec: 06/05/22 11:51 DCW [id number]) Balance Tests Bajwa Balance Test Bajwa Balance Test Score 41/56 Bajwa Impairment Rating 20 to 39% Impaired (Score 34- 44) Bajwa Balance Assessment Evaluation Sitting to Standing Ability Independent w/Hands Unsupported Stance Safely- 2 minutes Sitting Unsupported, Feet on Floor Safely- 2 minutes Standing to Sitting Ability Assist, Control w/Hands Transfer Ability Safely, Hand Use Unsupported Stance- Eyes Closed Safely, 10 seconds Unsupported Stance- Eyes Open Independent, 1 minute Reaching Forward Standing Safely, 5 inches Pick- Up Object From Floor Supervision Look Behind Shoulder - Standing Shifts Weight Unilateral Turning 360 Degrees Turns slowly, but safely Unsupported Stance, Alternating Feet on 2 Steps w/Minimum Assist Stair Unsupported Tandem Stance Holds Tandem- 30 seconds Unilateral Leg Stance Lifts Leg/Unable to Hold Total Score Bajwa Total Score (out of 56 points) 41 Bajwa Impairment Rating 20 to 39% Impaired (Score 34- 44) PT-OP-E Functional Tests Start: 12/21/21 17:31 Freq: Status: Active Protocol: Document 06/05/22 11:15 DCW (Rec: 06/05/22 11:51 DCW [id number]) Functional Tests 6 Minute Walk Test Distance 282 Device Used LBQC Comments 0.78 ft/sec Timed Up and Go (TUG) Score 36.79 Comments /c SPC TUG Impairment Rating 100% Impaired (Score 20) PT-OP-G Mobility & Gait Start: 12/21/21 17:31 Freq: Status: Active Protocol: Document 06/05/22 11:15 DCW (Rec: 06/05/22 11:51 DCW [id number]) OP Gait Assessment Gait Gait Assistance Required: Standby Assistance Distance (Feet) 282 Able to Maintain Weight Bearing Status Yes During Gait Assistive Devices Assistive Device Gait Belt,Straight Cane Orthotic/Prosthetic Devices or Brace: Yes Gait Deviations General Gait Pattern Ataxic,Decreased Stride Length ,Decreased Feet Clearance, Flexed Trunk,Lateral Trunk Lean,Step-to Gait Factors Limiting Gait Function Factors Limiting Gait Function Abnormal Tonal Influences, Decreased Activity Tolerance, Decreased Strength,Limited Range of Motion,Poor Balance, Poor Safety Awareness Comments Gait Comments Pt ambulates with a step-to gait pattern, keeps his right arm in a flexed, guarded position, slow meenakshi, left foot internally rotated PT-OP-M Strength Start: 12/21/21 17:31 Freq: Status: Active Protocol: Document 06/05/22 11:15 DCW (Rec: 06/05/22 11:51 DCW [id number]) Hip Strength Hip Manual Muscle Testing Right Flexion (L2) 2+ Poor+ Extension (S1) 3- Fair- Abduction 2- Poor- Adduction 3 Fair External Rotation 2 Poor Internal Rotation 2 Poor Left Flexion (L2) 4+ Good+ Extension (S1) 4+ Good+ Abduction 5 Normal Adduction 4+ Good+ External Rotation 4 Good Internal Rotation 4 Good Knee Strength Knee Manual Muscle Testing Right Flexion (S2) 3- Fair- Extension (L3) 3+ Fair+ Left Flexion (S2) 5 Normal Extension (L3) 5 Normal Ankle/Foot Strength Ankle and Foot Manual Muscle Testing Left Dorsiflexion (L4) 5 Normal Plantarflexion (S1) 5 Normal Right Comments AFO PT-OP-Q Treatments Start: 12/21/21 17:31 Freq: Status: Active Protocol: Document 08/07/22 14:31 SP (Rec: 08/07/22 16:02 SP [id number]) Gym Equipment Shuttle Recovery Unilateral Squats Details B Resistance L 50#, R 37# Shuttle Recovery Platform Stable Reps/Time 20x2 L, Bilateral Squats Details small yellow ball between knees Resistance 87# Shuttle Recovery Platform Stable Reps/Time 2x15 Shuttle Balance red clips Details balance fwd/bck, HTs Comments Wide NATE, NBOS, Stagger stance w/ CGA- 10% A Gait Training Gait Activity uneven surface Description increase wt shift into RLE WB =, balance recovery, sequencing QC/LEs pos Device Used QC, GB Level of Assistance CGA Surface indoors: 1 blue mat, folded yoga at on top, 4 step Distance/Duration 2 laps Treatment Focus balance recovery, increase WB into RLE Comments RLE foot catches but clears stepping top folded yoga mat. LIght contact/ near QC by BEHAVIOR CLINICIAN during uneven mat for safety stability. Neuro Re-Education Treatment Balance Activities hurdles Details fwd, bkwd, side-stepping Surface firm Equipment along lrg balance beam, QC in LUE Reps/Duration 10 ft x1 lap Comments unableto back step with RLE, able to lead each LE forward and back step LLE. No contact QC needed, improved RLE WB. PT-OP-T Assessment and Plan Start: 12/21/21 17:31 Freq: Status: Active Protocol: Document 08/07/22 14:31 SP (Rec: 08/07/22 16:02 SP [id number]) Physical Therapy Assessment Goals Three Impairment Pt in high falls-risk category Short Term Goal (STG) Pt to improve 6MWT distance by at least 180' to 467' 01/19/22: baseline assessment: 217 ft in 6 min w/ LBQC. 02/09/22: 259 ft in 6 min w/ SBQC 3 pt gait maintaining 70- 72 bpm w/ metronome. 02/13/22: 189 ft in 6min w/qc decrease to 65 bpm metronome with 2 brief stand rests, need to sit in chair end 6MWT, decline head turn ask 30 ft further to bike, nodded yes when asked if dizzy. 03/12/22: Minimal change since eval 06/05/22: Minimal change since eval STG Duration 07/19/22 Fdc Goal (LTG) Pt to increase Bajwa score by at least 7 points to 35/56 to demonstrate a decrease in his falls risk 01/23/22: Bajwa Balance Score 24 /56 today 03/12/22: scores 31/56 today 06/05/22: Met, 41/56. NEW GOAL: Bajwa score of 45/56 to demonstrate low falls risk LTG Duration 09/03/22 Two Impairment Pt exhibits R LE MMT measured between 2-/5 to 3+/5 [employer] Machine Operator Goal (LTG) Pt to improve R LE MMT in all planes to at least 3/5 01/23/22: no significant change noted with MMT today 03/12/22: no significant change noted with MMT today LTG Duration 09/03/22 One Impairment Pt does not participate in an appropriate home exercise program Short Term Goal (STG) Pt to be compliant with an approrpiate HEP 01/23/22: patient indicated not doing exercises at home, though also had quizzical look on face when asked about exercises. Has previously been issued written HEP. STG Duration 07/19/22 Questionable compliance Assessment Summary Assessment Pt improved WB into RLE during balance and uneven surface activities with cues for wt shift to R. Pt has more confidence with uneven surfaces. Physical Therapy Plan Frequency and Duration Frequency of Treatment 2x/Week Plan of Care Start Date 06/05/22 Plan of Care End Date 09/03/22 Therapeutic Interventions Therapeutic Interventions Aquatic Therapy,Balance Training,Gait Training,Home Exercise Program,Joint Mobilizations,Manual Therapy, Neuromuscular Re-education, Patient/Caregiver Education, Self-Care/Home Management,Soft Tissue Mobilization, Therapeutic Activities, Therapeutic Exercises Next Visit Focus/Plan Next Note Type Treatment Note Next Visit Plan Reassess uneven incline/ decline outside to allow community confidence. POC: Warm up bike, shuttle balance, progress 2pt gait, functional strength and balance challenges.
--- NOTE | 2022-08-09 16:31 | PT.OTN ---
Current Diagnoses Ataxic gait (08/09/22) Other abnormalities of gait and mobility (08/09/22) Weakness (08/09/22) Personal history of transient ischemic attack (TIA), and cerebral infarction without residual deficits (08/09/22) History of falling (08/09/22) Physical Therapy Treatment Note PT-OP-A Visit Information Start: 12/21/21 17:31 Freq: Status: Active Protocol: Document 08/09/22 14:30 DCW (Rec: 08/09/22 15:12 DCW [id number]) Out-Patient Physical Therapy Visit Information Visit Information Visit Type Progress Note Visit Note 10th visit Visit Start Time 14:30 Visit Stop Time 15:15 Total Visit Minutes 45 Visit Number 51 Number of FERMENTER Visits 0 Evaluation Information Evaluation Date 12/21/21 Precautions Precautions expressive aphasia PT-OP-B Current Condition Start: 12/21/21 17:31 Freq: Status: Active Protocol: Document 02/21/22 08:19 SAK (Rec: 02/21/22 08:59 SAK [id number]) Current Condition History of Current Condition Onset Date 2013 Current Complaints Decreased strength, stamina, near falls History of Current Condition Pt is a 66 year old male very well known to this clinic who comes in to skilled PT today with a recent decline in functional mobility, strength, activity tolerance, and balance. Pt had suffered a CVA in 2013, and has been seen multiple times at this clinic since that time to improve balance and activity tolerance . At baseline, pt has fairly significant right hemiparesis and is almost entirely non- verbal. 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 Pt's notes that pt has been experiencing some problems with his lab values, especially a decrease in sodium and iron. also notes that previously, pt would enjoy going out around the town, but now he just prefers to stay home and only moves around from his chair to the bathroom and back. During prior rounds of PT, it has been difficult to convince Sukh to participate in his HEP, however his notes that their son-in-law recently became a FERMENTER, so they are hopeful that he will be able to help direct a more comprehensive HEP. PT-OP-C Subjective Start: 12/21/21 17:31 Freq: Status: Active Protocol: Document 08/09/22 14:30 DCW (Rec: 08/09/22 15:12 DCW [id number]) OP-PT Subjective Patient Comments Patient Comments Pt indicates he is doing well today. PT-OP-D Balance Start: 12/21/21 17:31 Freq: Status: Active Protocol: Document 06/05/22 11:15 DCW (Rec: 06/05/22 11:51 DCW [id number]) Balance Tests Bajwa Balance Test Bajwa Balance Test Score 41/56 Bajwa Impairment Rating 20 to 39% Impaired (Score 34- 44) Bajwa Balance Assessment Evaluation Sitting to Standing Ability Independent w/Hands Unsupported Stance Safely- 2 minutes Sitting Unsupported, Feet on Floor Safely- 2 minutes Standing to Sitting Ability Assist, Control w/Hands Transfer Ability Safely, Hand Use Unsupported Stance- Eyes Closed Safely, 10 seconds Unsupported Stance- Eyes Open Independent, 1 minute Reaching Forward Standing Safely, 5 inches Pick- Up Object From Floor Supervision Look Behind Shoulder - Standing Shifts Weight Unilateral Turning 360 Degrees Turns slowly, but safely Unsupported Stance, Alternating Feet on 2 Steps w/Minimum Assist Stair Unsupported Tandem Stance Holds Tandem- 30 seconds Unilateral Leg Stance Lifts Leg/Unable to Hold Total Score Bajwa Total Score (out of 56 points) 41 Bajwa Impairment Rating 20 to 39% Impaired (Score 34- 44) PT-OP-E Functional Tests Start: 12/21/21 17:31 Freq: Status: Active Protocol: Document 06/05/22 11:15 DCW (Rec: 06/05/22 11:51 DCW [id number]) Functional Tests 6 Minute Walk Test Distance 282 Device Used LBQC Comments 0.78 ft/sec Timed Up and Go (TUG) Score 36.79 Comments /c SPC TUG Impairment Rating 100% Impaired (Score 20) PT-OP-G Mobility & Gait Start: 12/21/21 17:31 Freq: Status: Active Protocol: Document 06/05/22 11:15 DCW (Rec: 06/05/22 11:51 DCW [id number]) OP Gait Assessment Gait Gait Assistance Required: Standby Assistance Distance (Feet) 282 Able to Maintain Weight Bearing Status Yes During Gait Assistive Devices Assistive Device Gait Belt,Straight Cane Orthotic/Prosthetic Devices or Brace: Yes Gait Deviations General Gait Pattern Ataxic,Decreased Stride Length ,Decreased Feet Clearance, Flexed Trunk,Lateral Trunk Lean,Step-to Gait Factors Limiting Gait Function Factors Limiting Gait Function Abnormal Tonal Influences, Decreased Activity Tolerance, Decreased Strength,Limited Range of Motion,Poor Balance, Poor Safety Awareness Comments Gait Comments Pt ambulates with a step-to gait pattern, keeps his right arm in a flexed, guarded position, slow meenakshi, left foot internally rotated PT-OP-M Strength Start: 12/21/21 17:31 Freq: Status: Active Protocol: Document 06/05/22 11:15 DCW (Rec: 06/05/22 11:51 DCW [id number]) Hip Strength Hip Manual Muscle Testing Right Flexion (L2) 2+ Poor+ Extension (S1) 3- Fair- Abduction 2- Poor- Adduction 3 Fair External Rotation 2 Poor Internal Rotation 2 Poor Left Flexion (L2) 4+ Good+ Extension (S1) 4+ Good+ Abduction 5 Normal Adduction 4+ Good+ External Rotation 4 Good Internal Rotation 4 Good Knee Strength Knee Manual Muscle Testing Right Flexion (S2) 3- Fair- Extension (L3) 3+ Fair+ Left Flexion (S2) 5 Normal Extension (L3) 5 Normal Ankle/Foot Strength Ankle and Foot Manual Muscle Testing Left Dorsiflexion (L4) 5 Normal Plantarflexion (S1) 5 Normal Right Comments AFO PT-OP-Q Treatments Start: 12/21/21 17:31 Freq: Status: Active Protocol: Document 08/09/22 14:30 DCW (Rec: 08/09/22 15:12 DCW [id number]) Cardio Equipment Recumbent Elliptical (Biodex) Duration (Minutes) 5 Resistance 5 Seat Position 8 Other left UE/ ralph LE's: 334 Gym Equipment Shuttle Recovery Unilateral Squats Details B Resistance L 50#, R 37# Shuttle Recovery Platform Stable Reps/Time 20x2 L, Bilateral Squats Details small yellow ball between knees Resistance 87# Shuttle Recovery Platform Stable Reps/Time 2x15 Shuttle Balance red clips Details balance fwd/bck Comments Wide NATE, Stagger stance w/ CGA- 10% A Gait Training Gait Activity uneven surface Description increase wt shift into RLE WB =, balance recovery, sequencing QC/LEs pos Device Used // bar Level of Assistance CGA Surface indoors: 1 blue mat, folded yoga at on top, 4 step Distance/Duration 2 laps Treatment Focus balance recovery, increase WB into RLE Comments Pt able to complete today without right foot catching, CGA, hand on // bar Neuro Re-Education Treatment Balance Activities hurdles Details forward, side-stepping Surface firm Equipment 6 hurdles, // bar PT-OP-T Assessment and Plan Start: 12/21/21 17:31 Freq: Status: Active Protocol: Document 08/09/22 14:30 DCW (Rec: 08/09/22 16:31 DCW [id number]) Physical Therapy Assessment Impairments Impairments Activity Tolerance,Balance, Functional Activities, Functional Mobility,Gait,Soft Tissue Mobility,Strength, Transfers Goals Three Impairment Pt in high falls-risk category Short Term Goal (STG) Pt to improve 6MWT distance by at least 180' to 467' 01/19/22: baseline assessment: 217 ft in 6 min w/ LBQC. 02/09/22: 259 ft in 6 min w/ SBQC 3 pt gait maintaining 70- 72 bpm w/ metronome. 02/13/22: 189 ft in 6min w/qc decrease to 65 bpm metronome with 2 brief stand rests, need to sit in chair end 6MWT, decline head turn ask 30 ft further to bike, nodded yes when asked if dizzy. 03/12/22: Minimal change since eval 06/05/22: Minimal change since eval STG Duration 09/03/22 - No stastically significant change Bead Picker Goal (LTG) Pt to increase Bajwa score by at least 7 points to 35/56 to demonstrate a decrease in his falls risk 01/23/22: Bajwa Balance Score 24 /56 today 03/12/22: scores 31/56 today 06/05/22: Met, 41/56. NEW GOAL: Bajwa score of 45/56 to demonstrate low falls risk LTG Duration 09/03/22 - Good Improvement Two Impairment Pt exhibits R LE MMT measured between 2-/5 to 3+/5 Bead Picker Goal (LTG) Pt to improve R LE MMT in all planes to at least 3/5 01/23/22: no significant change noted with MMT today 03/12/22: no significant change noted with MMT today LTG Duration 09/03/22 One Impairment Pt does not participate in an appropriate home exercise program Short Term Goal (STG) Pt to be compliant with an approrpiate HEP 01/23/22: patient indicated not doing exercises at home, though also had quizzical look on face when asked about exercises. Has previously been issued written HEP. STG Duration 07/19/22 Questionable compliance Assessment Summary Assessment Pt continues to be questionably motivated regarding home exercises. Has made some improvement in some areas, mainly Bajwa scores, however gait speed and MMT have remained largely unchanged. Will discuss with pt's at next opportunity home activity and possible progress plateau. Physical Therapy Plan Frequency and Duration Frequency of Treatment 2x/Week Plan of Care Start Date 06/05/22 Plan of Care End Date 09/03/22 Therapeutic Interventions Therapeutic Interventions Aquatic Therapy,Balance Training,Gait Training,Home Exercise Program,Joint Mobilizations,Manual Therapy, Neuromuscular Re-education, Patient/Caregiver Education, Self-Care/Home Management,Soft Tissue Mobilization, Therapeutic Activities, Therapeutic Exercises Next Visit Focus/Plan Next Note Type Treatment Note Next Visit Plan Reassess uneven incline/ decline outside to allow community confidence. POC: Warm up bike, shuttle balance, progress 2pt gait, functional strength and balance challenges.
--- NOTE | 2022-08-28 11:15 | PT.OTN ---
Current Diagnoses Ataxic gait (08/28/22) Other abnormalities of gait and mobility (08/28/22) Weakness (08/28/22) Personal history of transient ischemic attack (TIA), and cerebral infarction without residual deficits (08/28/22) History of falling (08/28/22) Physical Therapy Treatment Note PT-OP-A Visit Information Start: 12/21/21 17:31 Freq: Status: Active Protocol: Document 08/28/22 10:34 SP (Rec: 08/28/22 11:22 SP [id number]) Out-Patient Physical Therapy Visit Information Visit Information Visit Type Treatment Note Visit Note GOYOA Ray assisted in balance and updated goal assessments under direct uspervision and guidance of MASTER AUTOMOTIVE GLASS TECHNICIAN Lupe. Visit Start Time 10:34 Visit Stop Time 11:15 Total Visit Minutes 39 Visit Number 52 Number of MASTER AUTOMOTIVE GLASS TECHNICIAN Visits 1 Evaluation Information Evaluation Date 12/21/21 Precautions Precautions expressive aphasia PT-OP-B Current Condition Start: 12/21/21 17:31 Freq: Status: Active Protocol: Document 02/21/22 08:19 SAK (Rec: 02/21/22 08:59 SAK [id number]) Current Condition History of Current Condition Onset Date 2013 Current Complaints Decreased strength, stamina, near falls History of Current Condition Pt is a 66 year old male very well known to this clinic who comes in to skilled PT today with a recent decline in functional mobility, strength, activity tolerance, and balance. Pt had suffered a CVA in 2013, and has been seen multiple times at this clinic since that time to improve balance and activity tolerance . At baseline, pt has fairly significant right hemiparesis and is almost entirely non- verbal. 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 Pt's notes that pt has been experiencing some problems with his lab values, especially a decrease in sodium and iron. also notes that previously, pt would enjoy going out around the town, but now he just prefers to stay home and only moves around from his chair to the bathroom and back. During prior rounds of PT, it has been difficult to convince Sukh to participate in his HEP, however his notes that their son-in-law recently became a MASTER AUTOMOTIVE GLASS TECHNICIAN, so they are hopeful that he will be able to help direct a more comprehensive HEP. PT-OP-C Subjective Start: 12/21/21 17:31 Freq: Status: Active Protocol: Document 08/28/22 10:34 SP (Rec: 08/28/22 11:22 SP [id number]) OP-PT Subjective Patient Comments Patient Comments Pt indicates he is doing well today. PT-OP-D Balance Start: 12/21/21 17:31 Freq: Status: Active Protocol: Document 06/05/22 11:15 DCW (Rec: 06/05/22 11:51 DCW [id number]) Balance Tests Fuchs Balance Test Fuchs Balance Test Score 41/56 Fuchs Impairment Rating 20 to 39% Impaired (Score 34- 44) Fuchs Balance Assessment Evaluation Sitting to Standing Ability Independent w/Hands Unsupported Stance Safely- 2 minutes Sitting Unsupported, Feet on Floor Safely- 2 minutes Standing to Sitting Ability Assist, Control w/Hands Transfer Ability Safely, Hand Use Unsupported Stance- Eyes Closed Safely, 10 seconds Unsupported Stance- Eyes Open Independent, 1 minute Reaching Forward Standing Safely, 5 inches Pick- Up Object From Floor Supervision Look Behind Shoulder - Standing Shifts Weight Unilateral Turning 360 Degrees Turns slowly, but safely Unsupported Stance, Alternating Feet on 2 Steps w/Minimum Assist Stair Unsupported Tandem Stance Holds Tandem- 30 seconds Unilateral Leg Stance Lifts Leg/Unable to Hold Total Score Fuchs Total Score (out of 56 points) 41 Fuchs Impairment Rating 20 to 39% Impaired (Score 34- 44) PT-OP-E Functional Tests Start: 12/21/21 17:31 Freq: Status: Active Protocol: Document 08/28/22 10:34 SP (Rec: 08/28/22 11:22 SP [id number]) Functional Tests 6 Minute Walk Test Distance 266 Device Used LBQC Comments 0.73 ft/sec, decrease from 0. 78ft/sec 06/05/22 Other FUCHS Name of Test Fuchs Score 38 PT-OP-G Mobility & Gait Start: 12/21/21 17:31 Freq: Status: Active Protocol: Document 06/05/22 11:15 DCW (Rec: 06/05/22 11:51 DCW [id number]) OP Gait Assessment Gait Gait Assistance Required: Standby Assistance Distance (Feet) 282 Able to Maintain Weight Bearing Status Yes During Gait Assistive Devices Assistive Device Gait Belt,Straight Cane Orthotic/Prosthetic Devices or Brace: Yes Gait Deviations General Gait Pattern Ataxic,Decreased Stride Length ,Decreased Feet Clearance, Flexed Trunk,Lateral Trunk Lean,Step-to Gait Factors Limiting Gait Function Factors Limiting Gait Function Abnormal Tonal Influences, Decreased Activity Tolerance, Decreased Strength,Limited Range of Motion,Poor Balance, Poor Safety Awareness Comments Gait Comments Pt ambulates with a step-to gait pattern, keeps his right arm in a flexed, guarded position, slow meenakshi, left foot internally rotated PT-OP-M Strength Start: 12/21/21 17:31 Freq: Status: Active Protocol: Document 06/05/22 11:15 DCW (Rec: 06/05/22 11:51 DCW [id number]) Hip Strength Hip Manual Muscle Testing Right Flexion (L2) 2+ Poor+ Extension (S1) 3- Fair- Abduction 2- Poor- Adduction 3 Fair External Rotation 2 Poor Internal Rotation 2 Poor Left Flexion (L2) 4+ Good+ Extension (S1) 4+ Good+ Abduction 5 Normal Adduction 4+ Good+ External Rotation 4 Good Internal Rotation 4 Good Knee Strength Knee Manual Muscle Testing Right Flexion (S2) 3- Fair- Extension (L3) 3+ Fair+ Left Flexion (S2) 5 Normal Extension (L3) 5 Normal Ankle/Foot Strength Ankle and Foot Manual Muscle Testing Left Dorsiflexion (L4) 5 Normal Plantarflexion (S1) 5 Normal Right Comments AFO PT-OP-Q Treatments Start: 12/21/21 17:31 Freq: Status: Active Protocol: Document 08/28/22 10:34 SP (Rec: 08/28/22 11:22 SP [id number]) Gait Training Gait Activity 6MWT Device Used QC Level of Assistance CGA Surface Flat, even, though change from carpet to anna Distance/Duration 266 Treatment Focus Goal assessments Neuro Re-Education Treatment Balance Activities Fuchs Comments 38/56 PT-OP-T Assessment and Plan Start: 12/21/21 17:31 Freq: Status: Active Protocol: Document 08/28/22 10:34 SP (Rec: 08/28/22 11:22 SP [id number]) Physical Therapy Assessment Goals Three Impairment Pt in high falls-risk category Short Term Goal (STG) Pt to improve 6MWT distance by at least 180' to 467' 01/19/22: baseline assessment: 217 ft in 6 min w/ LBQC. 02/09/22: 259 ft in 6 min w/ SBQC 3 pt gait maintaining 70- 72 bpm w/ metronome. 02/13/22: 189 ft in 6min w/qc decrease to 65 bpm metronome with 2 brief stand rests, need to sit in chair end 6MWT, decline head turn ask 30 ft further to bike, nodded yes when asked if dizzy. 03/12/22: Minimal change since eval 06/05/22: Minimal change since eval 08/28/22: 266 ft w/ LBQC, 0.73 ft/sec, decrease .08 ft/sec. STG Duration 09/03/22 - No stastically significant change Embroidery Cutter Goal (LTG) Pt to increase Fuchs score by at least 7 points to 35/56 to demonstrate a decrease in his falls risk 01/23/22: Fuhcs Balance Score 24 /56 today 03/12/22: scores 31/56 today 06/05/22: Met, 41/56. NEW GOAL: Fuchs score of 45/56 to demonstrate low falls risk 08/28/22: 38/56, primarily needs support of QC LTG Duration 09/03/22 - Good Improvement Two Impairment Pt exhibits R LE MMT measured between 2-/5 to 3+/5 Embroidery Cutter Goal (LTG) Pt to improve R LE MMT in all planes to at least 3/5 01/23/22: no significant change noted with MMT today 03/12/22: no significant change noted with MMT today LTG Duration 09/03/22 One Impairment Pt does not participate in an appropriate home exercise program Short Term Goal (STG) Pt to be compliant with an approrpiate HEP 01/23/22: patient indicated not doing exercises at home, though also had quizzical look on face when asked about exercises. Has previously been issued written HEP. 08/28/22: Pt shook head side to side indicating doesn't do his exercises at home. STG Duration 07/19/22 Assessment Summary Assessment Pt 6MWT and fuchs test indicate fall rish. Low platueing in endurance, gait decreased .05 feet/sec Physical Therapy Plan Frequency and Duration Frequency of Treatment 2x/Week Plan of Care Start Date 06/05/22 Plan of Care End Date 08/28/22 Therapeutic Interventions Therapeutic Interventions Aquatic Therapy,Balance Training,Gait Training,Home Exercise Program,Joint Mobilizations,Manual Therapy, Neuromuscular Re-education, Patient/Caregiver Education, Self-Care/Home Management,Soft Tissue Mobilization, Therapeutic Activities, Therapeutic Exercises Next Visit Focus/Plan Next Note Type Progress Note Next Visit Plan POC expires 09/03.
--- NOTE | 2022-08-28 11:15 | PT.OTN ---
Current Diagnoses Ataxic gait (08/28/22) Other abnormalities of gait and mobility (08/28/22) Weakness (08/28/22) Personal history of transient ischemic attack (TIA), and cerebral infarction without residual deficits (08/28/22) History of falling (08/28/22) Physical Therapy Treatment Note PT-OP-A Visit Information Start: 12/21/21 17:31 Freq: Status: Active Protocol: Document 08/28/22 10:34 SP (Rec: 08/28/22 11:22 SP [id number]) Out-Patient Physical Therapy Visit Information Visit Information Visit Type Treatment Note Visit Note GOYOA Ray assisted in balance and updated goal assessments under direct uspervision and guidance of APPLICATION INTEGRATION SPECIALIST Lupe. Visit Start Time 10:34 Visit Stop Time 11:15 Total Visit Minutes 39 Visit Number 52 Number of APPLICATION INTEGRATION SPECIALIST Visits 1 Evaluation Information Evaluation Date 12/21/21 Precautions Precautions expressive aphasia PT-OP-B Current Condition Start: 12/21/21 17:31 Freq: Status: Active Protocol: Document 02/21/22 08:19 SAK (Rec: 02/21/22 08:59 SAK [id number]) Current Condition History of Current Condition Onset Date 2013 Current Complaints Decreased strength, stamina, near falls History of Current Condition Pt is a 66 year old male very well known to this clinic who comes in to skilled PT today with a recent decline in functional mobility, strength, activity tolerance, and balance. Pt had suffered a CVA in 2013, and has been seen multiple times at this clinic since that time to improve balance and activity tolerance . At baseline, pt has fairly significant right hemiparesis and is almost entirely non- verbal. 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 Pt's notes that pt has been experiencing some problems with his lab values, especially a decrease in sodium and iron. also notes that previously, pt would enjoy going out around the town, but now he just prefers to stay home and only moves around from his chair to the bathroom and back. During prior rounds of PT, it has been difficult to convince Sukh to participate in his HEP, however his notes that their son-in-law recently became a APPLICATION INTEGRATION SPECIALIST, so they are hopeful that he will be able to help direct a more comprehensive HEP. PT-OP-C Subjective Start: 12/21/21 17:31 Freq: Status: Active Protocol: Document 08/28/22 10:34 SP (Rec: 08/28/22 11:22 SP [id number]) OP-PT Subjective Patient Comments Patient Comments Pt indicates he is doing well today. PT-OP-D Balance Start: 12/21/21 17:31 Freq: Status: Active Protocol: Document 06/05/22 11:15 DCW (Rec: 06/05/22 11:51 DCW [id number]) Balance Tests Fuchs Balance Test Fuchs Balance Test Score 41/56 Fuchs Impairment Rating 20 to 39% Impaired (Score 34- 44) Fuchs Balance Assessment Evaluation Sitting to Standing Ability Independent w/Hands Unsupported Stance Safely- 2 minutes Sitting Unsupported, Feet on Floor Safely- 2 minutes Standing to Sitting Ability Assist, Control w/Hands Transfer Ability Safely, Hand Use Unsupported Stance- Eyes Closed Safely, 10 seconds Unsupported Stance- Eyes Open Independent, 1 minute Reaching Forward Standing Safely, 5 inches Pick- Up Object From Floor Supervision Look Behind Shoulder - Standing Shifts Weight Unilateral Turning 360 Degrees Turns slowly, but safely Unsupported Stance, Alternating Feet on 2 Steps w/Minimum Assist Stair Unsupported Tandem Stance Holds Tandem- 30 seconds Unilateral Leg Stance Lifts Leg/Unable to Hold Total Score Fuchs Total Score (out of 56 points) 41 Fuchs Impairment Rating 20 to 39% Impaired (Score 34- 44) PT-OP-E Functional Tests Start: 12/21/21 17:31 Freq: Status: Active Protocol: Document 08/28/22 10:34 SP (Rec: 08/28/22 11:22 SP [id number]) Functional Tests 6 Minute Walk Test Distance 266 Device Used LBQC Comments 0.73 ft/sec, decrease from 0. 78ft/sec 06/05/22 Other FUCHS Name of Test Fuchs Score 38 PT-OP-G Mobility & Gait Start: 12/21/21 17:31 Freq: Status: Active Protocol: Document 06/05/22 11:15 DCW (Rec: 06/05/22 11:51 DCW [id number]) OP Gait Assessment Gait Gait Assistance Required: Standby Assistance Distance (Feet) 282 Able to Maintain Weight Bearing Status Yes During Gait Assistive Devices Assistive Device Gait Belt,Straight Cane Orthotic/Prosthetic Devices or Brace: Yes Gait Deviations General Gait Pattern Ataxic,Decreased Stride Length ,Decreased Feet Clearance, Flexed Trunk,Lateral Trunk Lean,Step-to Gait Factors Limiting Gait Function Factors Limiting Gait Function Abnormal Tonal Influences, Decreased Activity Tolerance, Decreased Strength,Limited Range of Motion,Poor Balance, Poor Safety Awareness Comments Gait Comments Pt ambulates with a step-to gait pattern, keeps his right arm in a flexed, guarded position, slow meenakshi, left foot internally rotated PT-OP-M Strength Start: 12/21/21 17:31 Freq: Status: Active Protocol: Document 06/05/22 11:15 DCW (Rec: 06/05/22 11:51 DCW [id number]) Hip Strength Hip Manual Muscle Testing Right Flexion (L2) 2+ Poor+ Extension (S1) 3- Fair- Abduction 2- Poor- Adduction 3 Fair External Rotation 2 Poor Internal Rotation 2 Poor Left Flexion (L2) 4+ Good+ Extension (S1) 4+ Good+ Abduction 5 Normal Adduction 4+ Good+ External Rotation 4 Good Internal Rotation 4 Good Knee Strength Knee Manual Muscle Testing Right Flexion (S2) 3- Fair- Extension (L3) 3+ Fair+ Left Flexion (S2) 5 Normal Extension (L3) 5 Normal Ankle/Foot Strength Ankle and Foot Manual Muscle Testing Left Dorsiflexion (L4) 5 Normal Plantarflexion (S1) 5 Normal Right Comments AFO PT-OP-Q Treatments Start: 12/21/21 17:31 Freq: Status: Active Protocol: Document 08/28/22 10:34 SP (Rec: 08/28/22 11:22 SP [id number]) Gait Training Gait Activity 6MWT Device Used QC Level of Assistance CGA Surface Flat, even, though change from carpet to anna Distance/Duration 266 Treatment Focus Goal assessments Neuro Re-Education Treatment Balance Activities Fuchs Comments 38/56 PT-OP-T Assessment and Plan Start: 12/21/21 17:31 Freq: Status: Active Protocol: Document 08/28/22 10:34 SP (Rec: 08/28/22 11:22 SP [id number]) Physical Therapy Assessment Goals Three Impairment Pt in high falls-risk category Short Term Goal (STG) Pt to improve 6MWT distance by at least 180' to 467' 01/19/22: baseline assessment: 217 ft in 6 min w/ LBQC. 02/09/22: 259 ft in 6 min w/ SBQC 3 pt gait maintaining 70- 72 bpm w/ metronome. 02/13/22: 189 ft in 6min w/qc decrease to 65 bpm metronome with 2 brief stand rests, need to sit in chair end 6MWT, decline head turn ask 30 ft further to bike, nodded yes when asked if dizzy. 03/12/22: Minimal change since eval 06/05/22: Minimal change since eval 08/28/22: 266 ft w/ LBQC, 0.73 ft/sec, decrease .08 ft/sec. STG Duration 09/03/22 - No stastically significant change Manager Of Photography Goal (LTG) Pt to increase Fuchs score by at least 7 points to 35/56 to demonstrate a decrease in his falls risk 01/23/22: Fuchs Balance Score 24 /56 today 03/12/22: scores 31/56 today 06/05/22: Met, 41/56. NEW GOAL: Fuchs score of 45/56 to demonstrate low falls risk 08/28/22: 38/56, primarily needs support of QC LTG Duration 09/03/22 - Good Improvement Two Impairment Pt exhibits R LE MMT measured between 2-/5 to 3+/5 Manager Of Photography Goal (LTG) Pt to improve R LE MMT in all planes to at least 3/5 01/23/22: no significant change noted with MMT today 03/12/22: no significant change noted with MMT today LTG Duration 09/03/22 One Impairment Pt does not participate in an appropriate home exercise program Short Term Goal (STG) Pt to be compliant with an approrpiate HEP 01/23/22: patient indicated not doing exercises at home, though also had quizzical look on face when asked about exercises. Has previously been issued written HEP. 08/28/22: Pt shook head side to side indicating doesn't do his exercises at home. STG Duration 07/19/22 Assessment Summary Assessment Pt 6MWT and fuchs test indicate fall rish. Low platueing in endurance, gait decreased .05 feet/sec Physical Therapy Plan Frequency and Duration Frequency of Treatment 2x/Week Plan of Care Start Date 06/05/22 Plan of Care End Date 09/03/22 Therapeutic Interventions Therapeutic Interventions Aquatic Therapy,Balance Training,Gait Training,Home Exercise Program,Joint Mobilizations,Manual Therapy, Neuromuscular Re-education, Patient/Caregiver Education, Self-Care/Home Management,Soft Tissue Mobilization, Therapeutic Activities, Therapeutic Exercises Next Visit Focus/Plan Next Note Type Progress Note Next Visit Plan POC expires 09/03.
--- NOTE | 2022-08-30 14:32 | PT.OTN ---
Current Diagnoses Ataxic gait (08/30/22) Other abnormalities of gait and mobility (08/30/22) Weakness (08/30/22) Personal history of transient ischemic attack (TIA), and cerebral infarction without residual deficits (08/30/22) History of falling (08/30/22) Physical Therapy Treatment Note PT-OP-A Visit Information Start: 12/21/21 17:31 Freq: Status: Active Protocol: Document 08/30/22 13:55 SP (Rec: 08/30/22 14:30 SP [id number]) Out-Patient Physical Therapy Visit Information Visit Information Visit Type Treatment Note Visit Note SPTA Ray lead tx under direct suspervision and guidance of COMPUTER METEOROLOGIST Lupe. Pt late into gym for tx due to needing use bathroom. Visit Start Time 13:55 Visit Stop Time 14:32 Total Visit Minutes 37 Visit Number 53 Number of COMPUTER METEOROLOGIST Visits 2 Evaluation Information Evaluation Date 12/21/21 Precautions Precautions expressive aphasia PT-OP-B Current Condition Start: 12/21/21 17:31 Freq: Status: Active Protocol: Document 02/21/22 08:19 SAK (Rec: 02/21/22 08:59 SAK [id number]) Current Condition History of Current Condition Onset Date 2013 Current Complaints Decreased strength, stamina, near falls History of Current Condition Pt is a 66 year old male very well known to this clinic who comes in to skilled PT today with a recent decline in functional mobility, strength, activity tolerance, and balance. Pt had suffered a CVA in 2013, and has been seen multiple times at this clinic since that time to improve balance and activity tolerance . At baseline, pt has fairly significant right hemiparesis and is almost entirely non- verbal. 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 Pt's notes that pt has been experiencing some problems with his lab values, especially a decrease in sodium and iron. also notes that previously, pt would enjoy going out around the town, but now he just prefers to stay home and only moves around from his chair to the bathroom and back. During prior rounds of PT, it has been difficult to convince Sukh to participate in his HEP, however his notes that their son-in-law recently became a COMPUTER METEOROLOGIST, so they are hopeful that he will be able to help direct a more comprehensive HEP. PT-OP-C Subjective Start: 12/21/21 17:31 Freq: Status: Active Protocol: Document 08/30/22 13:55 SP (Rec: 08/30/22 14:30 SP [id number]) OP-PT Subjective Patient Comments Patient Comments Pt indicates he is doing well today. PT-OP-D Balance Start: 12/21/21 17:31 Freq: Status: Active Protocol: Document 06/05/22 11:15 DCW (Rec: 06/05/22 11:51 DCW [id number]) Balance Tests Fuchs Balance Test Fuchs Balance Test Score 41/56 Fuchs Impairment Rating 20 to 39% Impaired (Score 34- 44) Fuchs Balance Assessment Evaluation Sitting to Standing Ability Independent w/Hands Unsupported Stance Safely- 2 minutes Sitting Unsupported, Feet on Floor Safely- 2 minutes Standing to Sitting Ability Assist, Control w/Hands Transfer Ability Safely, Hand Use Unsupported Stance- Eyes Closed Safely, 10 seconds Unsupported Stance- Eyes Open Independent, 1 minute Reaching Forward Standing Safely, 5 inches Pick- Up Object From Floor Supervision Look Behind Shoulder - Standing Shifts Weight Unilateral Turning 360 Degrees Turns slowly, but safely Unsupported Stance, Alternating Feet on 2 Steps w/Minimum Assist Stair Unsupported Tandem Stance Holds Tandem- 30 seconds Unilateral Leg Stance Lifts Leg/Unable to Hold Total Score Fuchs Total Score (out of 56 points) 41 Fuchs Impairment Rating 20 to 39% Impaired (Score 34- 44) PT-OP-E Functional Tests Start: 12/21/21 17:31 Freq: Status: Active Protocol: Document 08/28/22 10:34 SP (Rec: 08/28/22 11:22 SP [id number]) Functional Tests 6 Minute Walk Test Distance 266 Device Used LBQC Comments 0.73 ft/sec, decrease from 0. 78ft/sec 06/05/22 Other FUCHS Name of Test Fuchs Score 38 PT-OP-G Mobility & Gait Start: 12/21/21 17:31 Freq: Status: Active Protocol: Document 06/05/22 11:15 DCW (Rec: 06/05/22 11:51 DCW [id number]) OP Gait Assessment Gait Gait Assistance Required: Standby Assistance Distance (Feet) 282 Able to Maintain Weight Bearing Status Yes During Gait Assistive Devices Assistive Device Gait Belt,Straight Cane Orthotic/Prosthetic Devices or Brace: Yes Gait Deviations General Gait Pattern Ataxic,Decreased Stride Length ,Decreased Feet Clearance, Flexed Trunk,Lateral Trunk Lean,Step-to Gait Factors Limiting Gait Function Factors Limiting Gait Function Abnormal Tonal Influences, Decreased Activity Tolerance, Decreased Strength,Limited Range of Motion,Poor Balance, Poor Safety Awareness Comments Gait Comments Pt ambulates with a step-to gait pattern, keeps his right arm in a flexed, guarded position, slow meenakshi, left foot internally rotated PT-OP-M Strength Start: 12/21/21 17:31 Freq: Status: Active Protocol: Document 06/05/22 11:15 DCW (Rec: 06/05/22 11:51 DCW [id number]) Hip Strength Hip Manual Muscle Testing Right Flexion (L2) 2+ Poor+ Extension (S1) 3- Fair- Abduction 2- Poor- Adduction 3 Fair External Rotation 2 Poor Internal Rotation 2 Poor Left Flexion (L2) 4+ Good+ Extension (S1) 4+ Good+ Abduction 5 Normal Adduction 4+ Good+ External Rotation 4 Good Internal Rotation 4 Good Knee Strength Knee Manual Muscle Testing Right Flexion (S2) 3- Fair- Extension (L3) 3+ Fair+ Left Flexion (S2) 5 Normal Extension (L3) 5 Normal Ankle/Foot Strength Ankle and Foot Manual Muscle Testing Left Dorsiflexion (L4) 5 Normal Plantarflexion (S1) 5 Normal Right Comments AFO PT-OP-Q Treatments Start: 12/21/21 17:31 Freq: Status: Active Protocol: Document 08/30/22 13:55 SP (Rec: 08/30/22 14:30 SP [id number]) Therapeutic Exercises Standing Exercises marching warm up Resistance 5# leg wt Equipment Used L rail support Reps/Minutes x8 reps Comments cued step up/ down Standing Exercise Name fwd, side stepping Side bilateral Resistance 5# leg wt (therapist knee front pt R knee safety ext) Equipment Used Rail LUE 6 step Reps/Minutes x5 reps each LE lead up RLE, seated rest then lean LLE down Comments cued tall posture, LUE elbow straight/R quad fac ascend/ desc 1 Standing Exercise Name Toe-taps receiprocal (neuro) Side bilateral Resistance 5# leg wt B x5 reps Equipment Used 6 step, L HR Reps/Minutes alternating LEs Comments CGA, cued R knee quad fac for stability LLE transitioning Gait Training Gait Activity uneven surface Description increase wt shift into RLE WB =, balance recovery, sequencing QC/LEs pos Device Used // bar Level of Assistance CGA Surface indoors: 2 blue mats, folded yoga at on top, 6 step, 1 marlen Distance/Duration 2 laps Treatment Focus stability uneven surface, balance recovery, increase WB into RLE Comments Pt R foot caught folded yoga mat, no LOB during use QC for support. Neuro Re-Education Treatment Balance Activities rocker board Details F/b: WBOS, stagger Equipment rockerboard, hands hover L // bar, mirror Reps/Duration 3 min Comments cued increase WB into RLE. Pt improved centering posture with use mirror uneven surface balance Comments Next tx: continue EC Self-Care/Home Management Treatment Education Patient Education Joint Protection,Safety Caregiver Education Discussion with end tx, pt is coming up on end POC as written and not seeing significant progress in mobiltiy. stated his blood sugars have been up/down and affecting his tolerance to mobility. PT-OP-T Assessment and Plan Start: 12/21/21 17:31 Freq: Status: Active Protocol: Document 08/30/22 13:55 SP (Rec: 08/30/22 14:30 SP [id number]) Physical Therapy Assessment Goals Three Impairment Pt in high falls-risk category Short Term Goal (STG) Pt to improve 6MWT distance by at least 180' to 467' 01/19/22: baseline assessment: 217 ft in 6 min w/ LBQC. 02/09/22: 259 ft in 6 min w/ SBQC 3 pt gait maintaining 70- 72 bpm w/ metronome. 02/13/22: 189 ft in 6min w/qc decrease to 65 bpm metronome with 2 brief stand rests, need to sit in chair end 6MWT, decline head turn ask 30 ft further to bike, nodded yes when asked if dizzy. 03/12/22: Minimal change since eval 06/05/22: Minimal change since eval 08/28/22: 266 ft w/ LBQC, 0.73 ft/sec, decrease .08 ft/sec. STG Duration 09/03/22 - No stastically significant change Ribbon Inker Goal (LTG) Pt to increase Fuchs score by at least 7 points to 35/56 to demonstrate a decrease in his falls risk 01/23/22: Fuchs Balance Score 24 /56 today 03/12/22: scores 31/56 today 06/05/22: Met, 41/56. NEW GOAL: Fuchs score of 45/56 to demonstrate low falls risk 08/28/22: 38/56, primarily needs support of QC LTG Duration 09/03/22 - Good Improvement Two Impairment Pt exhibits R LE MMT measured between 2-/5 to 3+/5 Ribbon Inker Goal (LTG) Pt to improve R LE MMT in all planes to at least 3/5 01/23/22: no significant change noted with MMT today 03/12/22: no significant change noted with MMT today LTG Duration 09/03/22 One Impairment Pt does not participate in an appropriate home exercise program Short Term Goal (STG) Pt to be compliant with an approrpiate HEP 01/23/22: patient indicated not doing exercises at home, though also had quizzical look on face when asked about exercises. Has previously been issued written HEP. 08/28/22: Pt shook head side to side indicating doesn't do his exercises at home. STG Duration 07/19/22 Assessment Summary Assessment Pt improved WB into RLE during rocker board, uneven surface obstacle course with support of QC only, cGA Rfoot caught folded yoga mat but no LOB. Pt requires seated rest between activities for tiring recovery . Physical Therapy Plan Frequency and Duration Frequency of Treatment 2x/Week Plan of Care Start Date 06/05/22 Plan of Care End Date 09/03/22 Therapeutic Interventions Therapeutic Interventions Aquatic Therapy,Balance Training,Gait Training,Home Exercise Program,Joint Mobilizations,Manual Therapy, Neuromuscular Re-education, Patient/Caregiver Education, Self-Care/Home Management,Soft Tissue Mobilization, Therapeutic Activities, Therapeutic Exercises Next Visit Focus/Plan Next Note Type Progress Note Next Visit Plan POC expires 09/03. Pt will cancel 09/04 appt with COMPUTER METEOROLOGIST and see PT on 09/11 for further assessment. POC: Continue Warm up bike, shuttle balance, progress 2pt gait, functional strength and balance challenges.
--- NOTE | 2022-09-06 14:33 | PT.OTN ---
Current Diagnoses Ataxic gait (09/06/22) Other abnormalities of gait and mobility (09/06/22) Weakness (09/06/22) Personal history of transient ischemic attack (TIA), and cerebral infarction without residual deficits (09/06/22) History of falling (09/06/22) Physical Therapy Treatment Note PT-OP-A Visit Information Start: 12/21/21 17:31 Freq: Status: Active Protocol: Document 09/06/22 13:50 DCW (Rec: 09/06/22 14:33 DCW [id number]) Out-Patient Physical Therapy Visit Information Visit Information Visit Type Progress Note Visit Note 5 min late Visit Start Time 13:50 Visit Stop Time 14:30 Total Visit Minutes 40 Visit Number 54 Number of FIGHTING VEHICLE INFANTRYMAN Visits 0 Evaluation Information Evaluation Date 12/21/21 Precautions Precautions expressive aphasia PT-OP-B Current Condition Start: 12/21/21 17:31 Freq: Status: Active Protocol: Document 02/21/22 08:19 SAK (Rec: 02/21/22 08:59 SAK [id number]) Current Condition History of Current Condition Onset Date 2013 Current Complaints Decreased strength, stamina, near falls History of Current Condition Pt is a 66 year old male very well known to this clinic who comes in to skilled PT today with a recent decline in functional mobility, strength, activity tolerance, and balance. Pt had suffered a CVA in 2013, and has been seen multiple times at this clinic since that time to improve balance and activity tolerance . At baseline, pt has fairly significant right hemiparesis and is almost entirely non- verbal. 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 Pt's notes that pt has been experiencing some problems with his lab values, especially a decrease in sodium and iron. also notes that previously, pt would enjoy going out around the town, but now he just prefers to stay home and only moves around from his chair to the bathroom and back. During prior rounds of PT, it has been difficult to convince Sukh to participate in his HEP, however his notes that their son-in-law recently became a FIGHTING VEHICLE INFANTRYMAN, so they are hopeful that he will be able to help direct a more comprehensive HEP. PT-OP-C Subjective Start: 12/21/21 17:31 Freq: Status: Active Protocol: Document 09/06/22 13:50 DCW (Rec: 09/06/22 14:33 DCW [id number]) OP-PT Subjective Patient Comments Patient Comments reports pt has been having a lot more blood sugar fluctuations recently, unsure of why, but it's normally a sign that he has someing going on internally. PT-OP-D Balance Start: 12/21/21 17:31 Freq: Status: Active Protocol: Document 06/05/22 11:15 DCW (Rec: 06/05/22 11:51 DCW [id number]) Balance Tests Bajwa Balance Test Bajwa Balance Test Score 41/56 Bajwa Impairment Rating 20 to 39% Impaired (Score 34- 44) Bajwa Balance Assessment Evaluation Sitting to Standing Ability Independent w/Hands Unsupported Stance Safely- 2 minutes Sitting Unsupported, Feet on Floor Safely- 2 minutes Standing to Sitting Ability Assist, Control w/Hands Transfer Ability Safely, Hand Use Unsupported Stance- Eyes Closed Safely, 10 seconds Unsupported Stance- Eyes Open Independent, 1 minute Reaching Forward Standing Safely, 5 inches Pick- Up Object From Floor Supervision Look Behind Shoulder - Standing Shifts Weight Unilateral Turning 360 Degrees Turns slowly, but safely Unsupported Stance, Alternating Feet on 2 Steps w/Minimum Assist Stair Unsupported Tandem Stance Holds Tandem- 30 seconds Unilateral Leg Stance Lifts Leg/Unable to Hold Total Score Bajwa Total Score (out of 56 points) 41 Bajwa Impairment Rating 20 to 39% Impaired (Score 34- 44) PT-OP-E Functional Tests Start: 12/21/21 17:31 Freq: Status: Active Protocol: Document 09/06/22 13:50 DCW (Rec: 09/06/22 14:33 DCW [id number]) Functional Tests Timed Up and Go (TUG) Score 36.14 /c LB Comments 3-Trial average (37.24, 36.75, 34.42) TUG Impairment Rating 100% Impaired (Score 20) PT-OP-G Mobility & Gait Start: 12/21/21 17:31 Freq: Status: Active Protocol: Document 06/05/22 11:15 DCW (Rec: 06/05/22 11:51 DCW [id number]) OP Gait Assessment Gait Gait Assistance Required: Standby Assistance Distance (Feet) 282 Able to Maintain Weight Bearing Status Yes During Gait Assistive Devices Assistive Device Gait Belt,Straight Cane Orthotic/Prosthetic Devices or Brace: Yes Gait Deviations General Gait Pattern Ataxic,Decreased Stride Length ,Decreased Feet Clearance, Flexed Trunk,Lateral Trunk Lean,Step-to Gait Factors Limiting Gait Function Factors Limiting Gait Function Abnormal Tonal Influences, Decreased Activity Tolerance, Decreased Strength,Limited Range of Motion,Poor Balance, Poor Safety Awareness Comments Gait Comments Pt ambulates with a step-to gait pattern, keeps his right arm in a flexed, guarded position, slow meenakshi, left foot internally rotated PT-OP-M Strength Start: 12/21/21 17:31 Freq: Status: Active Protocol: Document 06/05/22 11:15 DCW (Rec: 06/05/22 11:51 DCW [id number]) Hip Strength Hip Manual Muscle Testing Right Flexion (L2) 2+ Poor+ Extension (S1) 3- Fair- Abduction 2- Poor- Adduction 3 Fair External Rotation 2 Poor Internal Rotation 2 Poor Left Flexion (L2) 4+ Good+ Extension (S1) 4+ Good+ Abduction 5 Normal Adduction 4+ Good+ External Rotation 4 Good Internal Rotation 4 Good Knee Strength Knee Manual Muscle Testing Right Flexion (S2) 3- Fair- Extension (L3) 3+ Fair+ Left Flexion (S2) 5 Normal Extension (L3) 5 Normal Ankle/Foot Strength Ankle and Foot Manual Muscle Testing Left Dorsiflexion (L4) 5 Normal Plantarflexion (S1) 5 Normal Right Comments AFO PT-OP-Q Treatments Start: 12/21/21 17:31 Freq: Status: Active Protocol: Document 09/06/22 13:50 DCW (Rec: 09/06/22 14:33 DCW [id number]) Gym Equipment Shuttle Balance red clips Details balance fwd/bck Comments Wide NATE, Stagger stance w/ CGA- 10% A Therapeutic Exercises Standing Exercises 1 Standing Exercise Name Toe-taps receiprocal (neuro) Side bilateral Resistance 5# leg wt B x5 reps Equipment Used 6 step, L HR Reps/Minutes alternating LEs Comments CGA, cued R knee quad fac for stability LLE transitioning Neuro Re-Education Treatment Balance Activities squat objects off floor Details Ball/cone transfers Surface WBOS Equipment transfer between cones Reps/Duration 4 x sets Comments CGA, stable, improve wt shift into RLE hurdles Details side-stepping Surface firm Equipment 6 hurdles, // bar Tandem Details Tandem stance Equipment // bars Reps/Duration EO Comments X1 viewing PT-OP-T Assessment and Plan Start: 12/21/21 17:31 Freq: Status: Active Protocol: Document 09/06/22 13:50 DCW (Rec: 09/06/22 14:33 DCW [id number]) Physical Therapy Assessment Goals Three Impairment Pt in high falls-risk category Short Term Goal (STG) Pt to improve 6MWT distance by at least 180' to 467' 01/19/22: baseline assessment: 217 ft in 6 min w/ LBQC. 02/09/22: 259 ft in 6 min w/ SBQC 3 pt gait maintaining 70- 72 bpm w/ metronome. 02/13/22: 189 ft in 6min w/qc decrease to 65 bpm metronome with 2 brief stand rests, need to sit in chair end 6MWT, decline head turn ask 30 ft further to bike, nodded yes when asked if dizzy. 03/12/22: Minimal change since eval 06/05/22: Minimal change since eval 08/28/22: 266 ft w/ LBQC, 0.73 ft/sec, decrease .08 ft/sec. STG Duration 11/01/22 Shelter Goal (LTG) Pt to increase Bajwa score by at least 7 points to 35/56 to demonstrate a decrease in his falls risk 01/23/22: Bajwa Balance Score 24 /56 today 03/12/22: scores 31/56 today 06/05/22: Met, 41/56. NEW GOAL: Bajwa score of 45/56 to demonstrate low falls risk 08/28/22: 38/56, primarily needs support of QC LTG Duration 11/01/22 Two Impairment Pt exhibits R LE MMT measured between 2-/5 to 3+/5 Shelter Goal (LTG) Pt to improve R LE MMT in all planes to at least 3/5 01/23/22: no significant change noted with MMT today 03/12/22: no significant change noted with MMT today LTG Duration 11/01/22 One Impairment Pt does not participate in an appropriate home exercise program Short Term Goal (STG) Pt to be compliant with an approrpiate HEP 01/23/22: patient indicated not doing exercises at home, though also had quizzical look on face when asked about exercises. Has previously been issued written HEP. 08/28/22: Pt shook head side to side indicating doesn't do his exercises at home. STG Duration 11/01/22 Assessment Summary Assessment Minimal changes from previous testing/reassessments. Pt's is noting some changes in function secondary to blood sugar variations, therapist is in agreement, pt struggled more with typical exercises today. Would like to proceed with skilled PT through another POC, if blood sugar stabilizes and pt continues to appear to have plateaued, will likely discharge at that time. Physical Therapy Plan Frequency and Duration Frequency of Treatment 2x/Week Plan of Care Start Date 09/06/22 Plan of Care End Date 11/01/22 Therapeutic Interventions Therapeutic Interventions Aquatic Therapy,Balance Training,Gait Training,Home Exercise Program,Joint Mobilizations,Manual Therapy, Neuromuscular Re-education, Patient/Caregiver Education, Self-Care/Home Management,Soft Tissue Mobilization, Therapeutic Activities, Therapeutic Exercises Next Visit Focus/Plan Next Note Type Treatment Note Next Visit Plan POC: Continue Warm up bike, shuttle balance, progress 2pt gait, functional strength and balance challenges.
--- NOTE | 2022-09-06 14:34 | PT.OPPOC ---
Physical, Occupational & Speech Therapy At [facility] Current Diagnoses Ataxic gait (09/06/22) Other abnormalities of gait and mobility (09/06/22) Weakness (09/06/22) Personal history of transient ischemic attack (TIA), and cerebral infarction without residual deficits (09/06/22) History of falling (09/06/22) Visit Care Team Role Provider Type Delfino Epstein MD Primary Care Provider Physician Specialty: Family Practice Address: [address] [place] [address], [id number] Email: [email or web address] Bernice Lopez PA-C Attending Provider Advanced Assistant Executive Housekeeper Referring Provider Specialty: Medical Address: [address], [address] Email: [email or web address] Plan Of Care PT-OP-T Assessment and Plan Start: 12/21/21 17:31 Freq: Status: Active Protocol: Document 09/06/22 13:50 DCW (Rec: 09/06/22 14:33 DCW [id number]) Physical Therapy Assessment Goals Three Impairment Pt in high falls-risk category Short Term Goal (STG) Pt to improve 6MWT distance by at least 180' to 467' 01/19/22: baseline assessment: 217 ft in 6 min w/ LBQC. 02/09/22: 259 ft in 6 min w/ SBQC 3 pt gait maintaining 70- 72 bpm w/ metronome. 02/13/22: 189 ft in 6min w/qc decrease to 65 bpm metronome with 2 brief stand rests, need to sit in chair end 6MWT, decline head turn ask 30 ft further to bike, nodded yes when asked if dizzy. 03/12/22: Minimal change since eval 06/05/22: Minimal change since eval 08/28/22: 266 ft w/ LBQC, 0.73 ft/sec, decrease .08 ft/sec. STG Duration 11/01/22 [employer] Goal (LTG) Pt to increase Bajwa score by at least 7 points to 35/56 to demonstrate a decrease in his falls risk 01/23/22: Bajwa Balance Score 24 /56 today 03/12/22: scores 31/56 today 06/05/22: Met, 41/56. NEW GOAL: Bajwa score of 45/56 to demonstrate low falls risk 08/28/22: 38/56, primarily needs support of QC LTG Duration 11/01/22 Two Impairment Pt exhibits R LE MMT measured between 2-/5 to 3+/5 Senior Living Goal (LTG) Pt to improve R LE MMT in all planes to at least 3/5 01/23/22: no significant change noted with MMT today 03/12/22: no significant change noted with MMT today LTG Duration 11/01/22 One Impairment Pt does not participate in an appropriate home exercise program Short Term Goal (STG) Pt to be compliant with an approrpiate HEP 01/23/22: patient indicated not doing exercises at home, though also had quizzical look on face when asked about exercises. Has previously been issued written HEP. 08/28/22: Pt shook head side to side indicating doesn't do his exercises at home. STG Duration 11/01/22 Assessment Summary Assessment Minimal changes from previous testing/reassessments. Pt's is noting some changes in function secondary to blood sugar variations, therapist is in agreement, pt struggled more with typical exercises today. Would like to proceed with skilled PT through another POC, if blood sugar stabilizes and pt continues to appear to have plateaued, will likely discharge at that time. Physical Therapy Plan Frequency and Duration Frequency of Treatment 2x/Week Plan of Care Start Date 09/06/22 Plan of Care End Date 11/01/22 Therapeutic Interventions Therapeutic Interventions Aquatic Therapy,Balance Training,Gait Training,Home Exercise Program,Joint Mobilizations,Manual Therapy, Neuromuscular Re-education, Patient/Caregiver Education, Self-Care/Home Management,Soft Tissue Mobilization, Therapeutic Activities, Therapeutic Exercises Next Visit Focus/Plan Next Note Type Treatment Note Next Visit Plan POC: Continue Warm up bike, shuttle balance, progress 2pt gait, functional strength and balance challenges. Plan of Care Dates Plan of Care Start Date 09/06/22 Plan of Care End Date 11/01/22 Electronically Signed by: Jefferson Ceron, PT 09/06/22 [id number] If you are in agreement with this Plan of Care, please return a signed and dated copy. I have reviewed this Plan of Care and certify that the skilled therapy services above are required to meet the patient?s needs. Physician Signature Date Printed Name and Credentials Clinical Instructor Signature Printed Name and Credentials
--- NOTE | 2022-09-14 15:22 | PT.OTN ---
Current Diagnoses Ataxic gait (09/14/22) Other abnormalities of gait and mobility (09/14/22) Weakness (09/14/22) Personal history of transient ischemic attack (TIA), and cerebral infarction without residual deficits (09/14/22) History of falling (09/14/22) Physical Therapy Treatment Note PT-OP-A Visit Information Start: 12/21/21 17:31 Freq: Status: Active Protocol: Document 09/14/22 14:24 TS (Rec: 09/14/22 15:54 TS [id number]) Out-Patient Physical Therapy Visit Information Visit Information Visit Type Treatment Note Visit Note SPTA Ray lead treatment, supervised by COMMUNITY LIAISON OFFICER Lupe Visit Start Time 14:34 Visit Stop Time 15:22 Total Visit Minutes 46 Visit Number 55 Number of COMMUNITY LIAISON OFFICER Visits 1 PT-OP-B Current Condition Start: 12/21/21 17:31 Freq: Status: Active Protocol: Document 02/21/22 08:19 SAK (Rec: 02/21/22 08:59 SAK [id number]) Current Condition History of Current Condition Onset Date 2013 Current Complaints Decreased strength, stamina, near falls History of Current Condition Pt is a 66 year old male very well known to this clinic who comes in to skilled PT today with a recent decline in functional mobility, strength, activity tolerance, and balance. Pt had suffered a CVA in 2013, and has been seen multiple times at this clinic since that time to improve balance and activity tolerance . At baseline, pt has fairly significant right hemiparesis and is almost entirely non- verbal. 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 Pt's notes that pt has been experiencing some problems with his lab values, especially a decrease in sodium and iron. also notes that previously, pt would enjoy going out around the town, but now he just prefers to stay home and only moves around from his chair to the bathroom and back. During prior rounds of PT, it has been difficult to convince Sukh to participate in his HEP, however his notes that their son-in-law recently became a COMMUNITY LIAISON OFFICER, so they are hopeful that he will be able to help direct a more comprehensive HEP. PT-OP-C Subjective Start: 12/21/21 17:31 Freq: Status: Active Protocol: Document 09/14/22 14:24 TS (Rec: 09/14/22 15:54 TS [id number]) OP-PT Subjective Patient Comments Patient Comments reports his energy level has been lower recently. He has a spot on his 1st R toe that has a sore that doesn't seem to heal but doesn't hurt. PT-OP-D Balance Start: 12/21/21 17:31 Freq: Status: Active Protocol: Document 06/05/22 11:15 DCW (Rec: 06/05/22 11:51 DCW [id number]) Balance Tests Bajwa Balance Test Bajwa Balance Test Score 41/56 Bajwa Impairment Rating 20 to 39% Impaired (Score 34- 44) Bajwa Balance Assessment Evaluation Sitting to Standing Ability Independent w/Hands Unsupported Stance Safely- 2 minutes Sitting Unsupported, Feet on Floor Safely- 2 minutes Standing to Sitting Ability Assist, Control w/Hands Transfer Ability Safely, Hand Use Unsupported Stance- Eyes Closed Safely, 10 seconds Unsupported Stance- Eyes Open Independent, 1 minute Reaching Forward Standing Safely, 5 inches Pick- Up Object From Floor Supervision Look Behind Shoulder - Standing Shifts Weight Unilateral Turning 360 Degrees Turns slowly, but safely Unsupported Stance, Alternating Feet on 2 Steps w/Minimum Assist Stair Unsupported Tandem Stance Holds Tandem- 30 seconds Unilateral Leg Stance Lifts Leg/Unable to Hold Total Score Bajwa Total Score (out of 56 points) 41 Bajwa Impairment Rating 20 to 39% Impaired (Score 34- 44) PT-OP-E Functional Tests Start: 12/21/21 17:31 Freq: Status: Active Protocol: Document 09/06/22 13:50 DCW (Rec: 09/06/22 14:33 DCW [id number]) Functional Tests Timed Up and Go (TUG) Score 36.14 /c LBQC Comments 3-Trial average (37.24, 36.75, 34.42) TUG Impairment Rating 100% Impaired (Score 20) PT-OP-G Mobility & Gait Start: 12/21/21 17:31 Freq: Status: Active Protocol: Document 06/05/22 11:15 DCW (Rec: 06/05/22 11:51 DCW [id number]) OP Gait Assessment Gait Gait Assistance Required: Standby Assistance Distance (Feet) 282 Able to Maintain Weight Bearing Status Yes During Gait Assistive Devices Assistive Device Gait Belt,Straight Cane Orthotic/Prosthetic Devices or Brace: Yes Gait Deviations General Gait Pattern Ataxic,Decreased Stride Length ,Decreased Feet Clearance, Flexed Trunk,Lateral Trunk Lean,Step-to Gait Factors Limiting Gait Function Factors Limiting Gait Function Abnormal Tonal Influences, Decreased Activity Tolerance, Decreased Strength,Limited Range of Motion,Poor Balance, Poor Safety Awareness Comments Gait Comments Pt ambulates with a step-to gait pattern, keeps his right arm in a flexed, guarded position, slow meenakshi, left foot internally rotated PT-OP-M Strength Start: 12/21/21 17:31 Freq: Status: Active Protocol: Document 06/05/22 11:15 DCW (Rec: 06/05/22 11:51 DCW [id number]) Hip Strength Hip Manual Muscle Testing Right Flexion (L2) 2+ Poor+ Extension (S1) 3- Fair- Abduction 2- Poor- Adduction 3 Fair External Rotation 2 Poor Internal Rotation 2 Poor Left Flexion (L2) 4+ Good+ Extension (S1) 4+ Good+ Abduction 5 Normal Adduction 4+ Good+ External Rotation 4 Good Internal Rotation 4 Good Knee Strength Knee Manual Muscle Testing Right Flexion (S2) 3- Fair- Extension (L3) 3+ Fair+ Left Flexion (S2) 5 Normal Extension (L3) 5 Normal Ankle/Foot Strength Ankle and Foot Manual Muscle Testing Left Dorsiflexion (L4) 5 Normal Plantarflexion (S1) 5 Normal Right Comments AFO PT-OP-Q Treatments Start: 12/21/21 17:31 Freq: Status: Active Protocol: Document 09/14/22 14:24 TS (Rec: 09/14/22 15:54 TS [id number]) Cardio Equipment Recumbent Elliptical (GenieBelt) Duration (Minutes) 5 Resistance 5 Seat Position 9 Other left UE/ ralph LE's: Gym Equipment Shuttle Recovery Unilateral Squats Details B Resistance L 50#, R 37# Shuttle Recovery Platform Stable Reps/Time 12x2 37# L, 37# x5 R, 25# 1x5, 1x12 R Bilateral Squats Details small yellow ball between knees Resistance 87>62# Shuttle Recovery Platform Stable Reps/Time x15 Shuttle Balance red clips Details balance fwd/bck Reps/Duration 8 mins Comments WBOS, NBOS, EC: 4 secs, HT's Gait Training Gait Activity Stair Mgt Description ascend forward/descend Device Used handrails Level of Assistance CGA Distance/Duration x12 reps Treatment Focus balance, glut and quad strengthening Comments Good carryover of ascending with unaffected LLE and descending with affected RLE, step to patterning Neuro Re-Education Treatment Balance Activities squat objects off floor Details Ball/cone transfers Surface WBOS firm floor, red yoga mat 2nd set Equipment transfer between 10 cones, 2 pods Reps/Duration x~12 Comments CGA, stable, improve wt shift into RLE, little sways on yog mat but no LOB. Stop stand brief rest before complete last 2 cone/pod Putting Details Standing putting Surface yoga mat Equipment putter Reps/Duration 1x6 Comments Focus on weight shift, trunk rotation, standing balance, CGA PT-OP-T Assessment and Plan Start: 12/21/21 17:31 Freq: Status: Active Protocol: Document 09/14/22 14:24 TS (Rec: 09/14/22 15:54 TS [id number]) Physical Therapy Assessment Goals Three Impairment Pt in high falls-risk category Short Term Goal (STG) Pt to improve 6MWT distance by at least 180' to 467' 01/19/22: baseline assessment: 217 ft in 6 min w/ LBQC. 02/09/22: 259 ft in 6 min w/ SBQC 3 pt gait maintaining 70- 72 bpm w/ metronome. 02/13/22: 189 ft in 6min w/qc decrease to 65 bpm metronome with 2 brief stand rests, need to sit in chair end 6MWT, decline head turn ask 30 ft further to bike, nodded yes when asked if dizzy. 03/12/22: Minimal change since eval 06/05/22: Minimal change since eval 08/28/22: 266 ft w/ LBQC, 0.73 ft/sec, decrease .08 ft/sec. STG Duration 11/01/22 Cyber Policy And Strategy Planner Goal (LTG) Pt to increase Bajwa score by at least 7 points to 35/56 to demonstrate a decrease in his falls risk 01/23/22: Bajwa Balance Score 24 /56 today 03/12/22: scores 31/56 today 06/05/22: Met, 41/56. NEW GOAL: Bajwa score of 45/56 to demonstrate low falls risk 08/28/22: 38/56, primarily needs support of QC LTG Duration 11/01/22 Two Impairment Pt exhibits R LE MMT measured between 2-/5 to 3+/5 Cyber Policy And Strategy Planner Goal (LTG) Pt to improve R LE MMT in all planes to at least 3/5 01/23/22: no significant change noted with MMT today 03/12/22: no significant change noted with MMT today LTG Duration 11/01/22 One Impairment Pt does not participate in an appropriate home exercise program Short Term Goal (STG) Pt to be compliant with an approrpiate HEP 01/23/22: patient indicated not doing exercises at home, though also had quizzical look on face when asked about exercises. Has previously been issued written HEP. 08/28/22: Pt shook head side to side indicating doesn't do his exercises at home. STG Duration 11/01/22 Assessment Summary Assessment Pt required decrease in weight on shuttle recovery due to fatigue, L knee pain. Pt required cues for upright posture, hip and core activation during shuttle balance. Pt continues to show no changes in function. Pt will benefit from continued intervention to improve balance and strength in LE's Physical Therapy Plan Frequency and Duration Frequency of Treatment 2x/Week Plan of Care Start Date 09/06/22 Plan of Care End Date 11/01/22 Therapeutic Interventions Therapeutic Interventions Aquatic Therapy,Balance Training,Gait Training,Home Exercise Program,Joint Mobilizations,Manual Therapy, Neuromuscular Re-education, Patient/Caregiver Education, Self-Care/Home Management,Soft Tissue Mobilization, Therapeutic Activities, Therapeutic Exercises Next Visit Focus/Plan Next Note Type Treatment Note Next Visit Plan NExt tx: step ups, uneven putting. POC: Continue Warm up bike, shuttle balance, progress 2pt gait, functional strength and balance challenges.
--- NOTE | 2022-09-18 16:51 | PT.OTN ---
Current Diagnoses Ataxic gait (09/18/22) Other abnormalities of gait and mobility (09/18/22) Weakness (09/18/22) Personal history of transient ischemic attack (TIA), and cerebral infarction without residual deficits (09/18/22) History of falling (09/18/22) Physical Therapy Treatment Note PT-OP-A Visit Information Start: 12/21/21 17:31 Freq: Status: Active Protocol: Document 09/18/22 16:00 DCW (Rec: 09/18/22 16:50 DCW [id number]) Out-Patient Physical Therapy Visit Information Visit Information Visit Type Treatment Note Visit Start Time 16:00 Visit Stop Time 16:45 Total Visit Minutes 45 Visit Number 56 Number of PRE BILLING CLINICIAN Visits 0 Evaluation Information Evaluation Date 12/21/21 Precautions Precautions expressive aphasia PT-OP-B Current Condition Start: 12/21/21 17:31 Freq: Status: Active Protocol: Document 02/21/22 08:19 SAK (Rec: 02/21/22 08:59 SAK [id number]) Current Condition History of Current Condition Onset Date 2013 Current Complaints Decreased strength, stamina, near falls History of Current Condition Pt is a 66 year old male very well known to this clinic who comes in to skilled PT today with a recent decline in functional mobility, strength, activity tolerance, and balance. Pt had suffered a CVA in 2013, and has been seen multiple times at this clinic since that time to improve balance and activity tolerance . At baseline, pt has fairly significant right hemiparesis and is almost entirely non- verbal. 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 Pt's notes that pt has been experiencing some problems with his lab values, especially a decrease in sodium and iron. also notes that previously, pt would enjoy going out around the town, but now he just prefers to stay home and only moves around from his chair to the bathroom and back. During prior rounds of PT, it has been difficult to convince Sukh to participate in his HEP, however his notes that their son-in-law recently became a PRE BILLING CLINICIAN, so they are hopeful that he will be able to help direct a more comprehensive HEP. PT-OP-C Subjective Start: 12/21/21 17:31 Freq: Status: Active Protocol: Document 09/18/22 16:00 DCW (Rec: 09/18/22 16:50 DCW [id number]) OP-PT Subjective Patient Comments Patient Comments Pt indicates he is doing well today. PT-OP-D Balance Start: 12/21/21 17:31 Freq: Status: Active Protocol: Document 06/05/22 11:15 DCW (Rec: 06/05/22 11:51 DCW [id number]) Balance Tests Bajwa Balance Test Bajwa Balance Test Score 41/56 Bajwa Impairment Rating 20 to 39% Impaired (Score 34- 44) Bajwa Balance Assessment Evaluation Sitting to Standing Ability Independent w/Hands Unsupported Stance Safely- 2 minutes Sitting Unsupported, Feet on Floor Safely- 2 minutes Standing to Sitting Ability Assist, Control w/Hands Transfer Ability Safely, Hand Use Unsupported Stance- Eyes Closed Safely, 10 seconds Unsupported Stance- Eyes Open Independent, 1 minute Reaching Forward Standing Safely, 5 inches Pick- Up Object From Floor Supervision Look Behind Shoulder - Standing Shifts Weight Unilateral Turning 360 Degrees Turns slowly, but safely Unsupported Stance, Alternating Feet on 2 Steps w/Minimum Assist Stair Unsupported Tandem Stance Holds Tandem- 30 seconds Unilateral Leg Stance Lifts Leg/Unable to Hold Total Score Bajwa Total Score (out of 56 points) 41 Bajwa Impairment Rating 20 to 39% Impaired (Score 34- 44) PT-OP-E Functional Tests Start: 12/21/21 17:31 Freq: Status: Active Protocol: Document 09/06/22 13:50 DCW (Rec: 09/06/22 14:33 DCW [id number]) Functional Tests Timed Up and Go (TUG) Score 36.14 /c LBQC Comments 3-Trial average (37.24, 36.75, 34.42) TUG Impairment Rating 100% Impaired (Score 20) PT-OP-G Mobility & Gait Start: 12/21/21 17:31 Freq: Status: Active Protocol: Document 06/05/22 11:15 DCW (Rec: 06/05/22 11:51 DCW [id number]) OP Gait Assessment Gait Gait Assistance Required: Standby Assistance Distance (Feet) 282 Able to Maintain Weight Bearing Status Yes During Gait Assistive Devices Assistive Device Gait Belt,Straight Cane Orthotic/Prosthetic Devices or Brace: Yes Gait Deviations General Gait Pattern Ataxic,Decreased Stride Length ,Decreased Feet Clearance, Flexed Trunk,Lateral Trunk Lean,Step-to Gait Factors Limiting Gait Function Factors Limiting Gait Function Abnormal Tonal Influences, Decreased Activity Tolerance, Decreased Strength,Limited Range of Motion,Poor Balance, Poor Safety Awareness Comments Gait Comments Pt ambulates with a step-to gait pattern, keeps his right arm in a flexed, guarded position, slow meenakshi, left foot internally rotated PT-OP-M Strength Start: 12/21/21 17:31 Freq: Status: Active Protocol: Document 06/05/22 11:15 DCW (Rec: 06/05/22 11:51 DCW [id number]) Hip Strength Hip Manual Muscle Testing Right Flexion (L2) 2+ Poor+ Extension (S1) 3- Fair- Abduction 2- Poor- Adduction 3 Fair External Rotation 2 Poor Internal Rotation 2 Poor Left Flexion (L2) 4+ Good+ Extension (S1) 4+ Good+ Abduction 5 Normal Adduction 4+ Good+ External Rotation 4 Good Internal Rotation 4 Good Knee Strength Knee Manual Muscle Testing Right Flexion (S2) 3- Fair- Extension (L3) 3+ Fair+ Left Flexion (S2) 5 Normal Extension (L3) 5 Normal Ankle/Foot Strength Ankle and Foot Manual Muscle Testing Left Dorsiflexion (L4) 5 Normal Plantarflexion (S1) 5 Normal Right Comments AFO PT-OP-Q Treatments Start: 12/21/21 17:31 Freq: Status: Active Protocol: Document 09/18/22 16:00 DCW (Rec: 09/18/22 16:50 DCW [id number]) Cardio Equipment Recumbent Elliptical (Biodex) Duration (Minutes) 5 Resistance 5 Seat Position 9 Other left UE/ ralph LE's: Gym Equipment Shuttle Recovery Unilateral Squats Details B Resistance L 50#, R 37# Shuttle Recovery Platform Stable Reps/Time x15 each Bilateral Squats Details small yellow ball between knees Resistance 87# Shuttle Recovery Platform Stable Reps/Time x15 Shuttle Balance red clips Details balance fwd/bck Comments Wide NATE, Stagger stance w/ CGA- 10% A Therapeutic Exercises Standing Exercises 1 Standing Exercise Name Toe-taps receiprocal (neuro) Side bilateral Resistance 5# leg wt B x5 reps Equipment Used 6 step, L HR Reps/Minutes alternating LEs Comments CGA, cued R knee quad fac for stability LLE transitioning Neuro Re-Education Treatment Balance Activities rocker board Details DF/PF Comments cued increase WB into RLE. Pt improved centering posture with use mirror hurdles Details side-stepping Surface firm Equipment 6 hurdles, // bar Tandem Details Tandem stance Equipment // bars Reps/Duration EO Comments X1 viewing PT-OP-T Assessment and Plan Start: 12/21/21 17:31 Freq: Status: Active Protocol: Document 09/18/22 16:00 DCW (Rec: 09/18/22 16:50 DCW [id number]) Physical Therapy Assessment Goals Three Impairment Pt in high falls-risk category Short Term Goal (STG) Pt to improve 6MWT distance by at least 180' to 467' 01/19/22: baseline assessment: 217 ft in 6 min w/ LBQC. 02/09/22: 259 ft in 6 min w/ SBQC 3 pt gait maintaining 70- 72 bpm w/ metronome. 02/13/22: 189 ft in 6min w/qc decrease to 65 bpm metronome with 2 brief stand rests, need to sit in chair end 6MWT, decline head turn ask 30 ft further to bike, nodded yes when asked if dizzy. 03/12/22: Minimal change since eval 06/05/22: Minimal change since eval 08/28/22: 266 ft w/ LBQC, 0.73 ft/sec, decrease .08 ft/sec. STG Duration 11/01/22 Alf Goal (LTG) Pt to increase Bajwa score by at least 7 points to 35/56 to demonstrate a decrease in his falls risk 01/23/22: Bajwa Balance Score 24 /56 today 03/12/22: scores 31/56 today 06/05/22: Met, 41/56. NEW GOAL: Bajwa score of 45/56 to demonstrate low falls risk 08/28/22: 38/56, primarily needs support of QC LTG Duration 11/01/22 Two Impairment Pt exhibits R LE MMT measured between 2-/5 to 3+/5 Alf Goal (LTG) Pt to improve R LE MMT in all planes to at least 3/5 01/23/22: no significant change noted with MMT today 03/12/22: no significant change noted with MMT today LTG Duration 11/01/22 One Impairment Pt does not participate in an appropriate home exercise program Short Term Goal (STG) Pt to be compliant with an approrpiate HEP 01/23/22: patient indicated not doing exercises at home, though also had quizzical look on face when asked about exercises. Has previously been issued written HEP. 08/28/22: Pt shook head side to side indicating doesn't do his exercises at home. STG Duration 11/01/22 Assessment Summary Assessment Pt showing some moderate tremor through right leg with many balance challenges today, required repeated rest breaks . Otherwise, pt tolerated treatment well, when he was able to perform without tremor , balance appeared to be better today. Physical Therapy Plan Frequency and Duration Frequency of Treatment 2x/Week Plan of Care Start Date 09/06/22 Plan of Care End Date 11/01/22 Therapeutic Interventions Therapeutic Interventions Aquatic Therapy,Balance Training,Gait Training,Home Exercise Program,Joint Mobilizations,Manual Therapy, Neuromuscular Re-education, Patient/Caregiver Education, Self-Care/Home Management,Soft Tissue Mobilization, Therapeutic Activities, Therapeutic Exercises Next Visit Focus/Plan Next Note Type Treatment Note Next Visit Plan NExt tx: step ups, uneven putting. POC: Continue Warm up bike, shuttle balance, progress 2pt gait, functional strength and balance challenges.
--- NOTE | 2022-09-20 14:30 | PT.OTN ---
Current Diagnoses Ataxic gait (09/20/22) Other abnormalities of gait and mobility (09/20/22) Weakness (09/20/22) Personal history of transient ischemic attack (TIA), and cerebral infarction without residual deficits (09/20/22) History of falling (09/20/22) Physical Therapy Treatment Note PT-OP-A Visit Information Start: 12/21/21 17:31 Freq: Status: Active Protocol: Document 09/20/22 13:45 TS (Rec: 09/20/22 14:48 TS [id number]) Out-Patient Physical Therapy Visit Information Visit Information Visit Type Treatment Note Visit Note SPTA Ray lead treatment, supervised by CÉSAR Andrade. Visit Start Time 13:50 Visit Stop Time 14:30 Total Visit Minutes 40 Visit Number 57 Number of PHARMACY DELIVERY DRIVER Visits 1 PT-OP-B Current Condition Start: 12/21/21 17:31 Freq: Status: Active Protocol: Document 02/21/22 08:19 SAK (Rec: 02/21/22 08:59 SAK [id number]) Current Condition History of Current Condition Onset Date 2013 Current Complaints Decreased strength, stamina, near falls History of Current Condition Pt is a 66 year old male very well known to this clinic who comes in to skilled PT today with a recent decline in functional mobility, strength, activity tolerance, and balance. Pt had suffered a CVA in 2013, and has been seen multiple times at this clinic since that time to improve balance and activity tolerance . At baseline, pt has fairly significant right hemiparesis and is almost entirely non- verbal. 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 Pt's notes that pt has been experiencing some problems with his lab values, especially a decrease in sodium and iron. also notes that previously, pt would enjoy going out around the town, but now he just prefers to stay home and only moves around from his chair to the bathroom and back. During prior rounds of PT, it has been difficult to convince Sukh to participate in his HEP, however his notes that their son-in-law recently became a PHARMACY DELIVERY DRIVER, so they are hopeful that he will be able to help direct a more comprehensive HEP. PT-OP-C Subjective Start: 12/21/21 17:31 Freq: Status: Active Protocol: Document 09/20/22 13:45 TS (Rec: 09/20/22 14:48 TS [id number]) OP-PT Subjective Patient Comments Patient Comments Pt indicates his energy level is good today. PT-OP-D Balance Start: 12/21/21 17:31 Freq: Status: Active Protocol: Document 06/05/22 11:15 DCW (Rec: 06/05/22 11:51 DCW [id number]) Balance Tests Bajwa Balance Test Bajwa Balance Test Score 41/56 Bajwa Impairment Rating 20 to 39% Impaired (Score 34- 44) Bajwa Balance Assessment Evaluation Sitting to Standing Ability Independent w/Hands Unsupported Stance Safely- 2 minutes Sitting Unsupported, Feet on Floor Safely- 2 minutes Standing to Sitting Ability Assist, Control w/Hands Transfer Ability Safely, Hand Use Unsupported Stance- Eyes Closed Safely, 10 seconds Unsupported Stance- Eyes Open Independent, 1 minute Reaching Forward Standing Safely, 5 inches Pick- Up Object From Floor Supervision Look Behind Shoulder - Standing Shifts Weight Unilateral Turning 360 Degrees Turns slowly, but safely Unsupported Stance, Alternating Feet on 2 Steps w/Minimum Assist Stair Unsupported Tandem Stance Holds Tandem- 30 seconds Unilateral Leg Stance Lifts Leg/Unable to Hold Total Score Bajwa Total Score (out of 56 points) 41 Bajwa Impairment Rating 20 to 39% Impaired (Score 34- 44) PT-OP-E Functional Tests Start: 12/21/21 17:31 Freq: Status: Active Protocol: Document 09/06/22 13:50 DCW (Rec: 09/06/22 14:33 DCW [id number]) Functional Tests Timed Up and Go (TUG) Score 36.14 /c LBQC Comments 3-Trial average (37.24, 36.75, 34.42) TUG Impairment Rating 100% Impaired (Score 20) PT-OP-G Mobility & Gait Start: 12/21/21 17:31 Freq: Status: Active Protocol: Document 06/05/22 11:15 DCW (Rec: 06/05/22 11:51 DCW [id number]) OP Gait Assessment Gait Gait Assistance Required: Standby Assistance Distance (Feet) 282 Able to Maintain Weight Bearing Status Yes During Gait Assistive Devices Assistive Device Gait Belt,Straight Cane Orthotic/Prosthetic Devices or Brace: Yes Gait Deviations General Gait Pattern Ataxic,Decreased Stride Length ,Decreased Feet Clearance, Flexed Trunk,Lateral Trunk Lean,Step-to Gait Factors Limiting Gait Function Factors Limiting Gait Function Abnormal Tonal Influences, Decreased Activity Tolerance, Decreased Strength,Limited Range of Motion,Poor Balance, Poor Safety Awareness Comments Gait Comments Pt ambulates with a step-to gait pattern, keeps his right arm in a flexed, guarded position, slow meenakshi, left foot internally rotated PT-OP-M Strength Start: 12/21/21 17:31 Freq: Status: Active Protocol: Document 06/05/22 11:15 DCW (Rec: 06/05/22 11:51 DCW [id number]) Hip Strength Hip Manual Muscle Testing Right Flexion (L2) 2+ Poor+ Extension (S1) 3- Fair- Abduction 2- Poor- Adduction 3 Fair External Rotation 2 Poor Internal Rotation 2 Poor Left Flexion (L2) 4+ Good+ Extension (S1) 4+ Good+ Abduction 5 Normal Adduction 4+ Good+ External Rotation 4 Good Internal Rotation 4 Good Knee Strength Knee Manual Muscle Testing Right Flexion (S2) 3- Fair- Extension (L3) 3+ Fair+ Left Flexion (S2) 5 Normal Extension (L3) 5 Normal Ankle/Foot Strength Ankle and Foot Manual Muscle Testing Left Dorsiflexion (L4) 5 Normal Plantarflexion (S1) 5 Normal Right Comments AFO PT-OP-Q Treatments Start: 12/21/21 17:31 Freq: Status: Active Protocol: Document 09/20/22 13:45 TS (Rec: 09/20/22 14:48 TS [id number]) Cardio Equipment Recumbent Elliptical (Biodex) Duration (Minutes) 5 Resistance 5 Seat Position 9 Other left UE/ ralph LE's: Gym Equipment Shuttle Recovery Unilateral Squats Details B Resistance L 50# (2x15), R 37# (1x15 reps ) Shuttle Recovery Platform Stable Bilateral Squats Details No ball needed between B knees today 09/20 Resistance 87# Shuttle Recovery Platform Stable Reps/Time 2x15 Shuttle Balance red clips Details balance fwd/bck wt shift, HT's Comments Wide NATE, Stagger stance, w/ CGA- 10% A Neuro Re-Education Treatment Balance Activities Obstacle Course Details Blue mat, 3 hurdles, wood wedges, foam oval cushions, hernandez bag toss Surface CG- Min A Equipment LBQC on L Reps/Duration x1 Comments Pt required cues for sequencing of stepping gait, leading with R foot with cane. Putting Details Standing putting Surface Blue mat Equipment putter Reps/Duration 1x5 Comments Focus on weight shift, trunk rotation, standing balance, CGA PT-OP-T Assessment and Plan Start: 12/21/21 17:31 Freq: Status: Active Protocol: Document 09/20/22 13:45 TS (Rec: 09/20/22 14:48 TS [id number]) Physical Therapy Assessment Goals Three Impairment Pt in high falls-risk category Short Term Goal (STG) Pt to improve 6MWT distance by at least 180' to 467' 01/19/22: baseline assessment: 217 ft in 6 min w/ LBQC. 02/09/22: 259 ft in 6 min w/ SBQC 3 pt gait maintaining 70- 72 bpm w/ metronome. 02/13/22: 189 ft in 6min w/qc decrease to 65 bpm metronome with 2 brief stand rests, need to sit in chair end 6MWT, decline head turn ask 30 ft further to bike, nodded yes when asked if dizzy. 03/12/22: Minimal change since eval 06/05/22: Minimal change since eval 08/28/22: 266 ft w/ LBQC, 0.73 ft/sec, decrease .08 ft/sec. STG Duration 11/01/22 Mcc Goal (LTG) Pt to increase Bajwa score by at least 7 points to 35/56 to demonstrate a decrease in his falls risk 01/23/22: Bajwa Balance Score 24 /56 today 03/12/22: scores 31/56 today 06/05/22: Met, 41/56. NEW GOAL: Bajwa score of 45/56 to demonstrate low falls risk 08/28/22: 38/56, primarily needs support of QC LTG Duration 11/01/22 Two Impairment Pt exhibits R LE MMT measured between 2-/5 to 3+/5 Mcc Goal (LTG) Pt to improve R LE MMT in all planes to at least 3/5 01/23/22: no significant change noted with MMT today 03/12/22: no significant change noted with MMT today LTG Duration 11/01/22 One Impairment Pt does not participate in an appropriate home exercise program Short Term Goal (STG) Pt to be compliant with an approrpiate HEP 01/23/22: patient indicated not doing exercises at home, though also had quizzical look on face when asked about exercises. Has previously been issued written HEP. 08/28/22: Pt shook head side to side indicating doesn't do his exercises at home. STG Duration 11/01/22 Assessment Summary Assessment Pt progressed putting on uneven surfaces. Pt had difficulty clearing RLE over hurdles during obstacle course on blue mat, improved foot clearance with cues for leading with RLE and quad cane . Pt fatigued quickly with shuttle balance and requires repeated rest breaks throughout session. Pt will continue to benefit from cont intervention to improve activity tolerance, ambulation distance and balance. Physical Therapy Plan Frequency and Duration Frequency of Treatment 2x/Week Plan of Care Start Date 09/06/22 Plan of Care End Date 11/01/22 Therapeutic Interventions Therapeutic Interventions Aquatic Therapy,Balance Training,Gait Training,Home Exercise Program,Joint Mobilizations,Manual Therapy, Neuromuscular Re-education, Patient/Caregiver Education, Self-Care/Home Management,Soft Tissue Mobilization, Therapeutic Activities, Therapeutic Exercises Next Visit Focus/Plan Next Note Type Treatment Note Next Visit Plan Next tx: Assess goal #3, perform step ups, continue uneven putting, shuttle recovery, 2 point gait on uneven surfaces. POC: Continue Warm up bike, shuttle balance , functional strength and balance challenges.
--- NOTE | 2022-09-25 15:15 | PT.OTN ---
Current Diagnoses Ataxic gait (09/25/22) Other abnormalities of gait and mobility (09/25/22) Weakness (09/25/22) Personal history of transient ischemic attack (TIA), and cerebral infarction without residual deficits (09/25/22) History of falling (09/25/22) Physical Therapy Treatment Note PT-OP-A Visit Information Start: 12/21/21 17:31 Freq: Status: Active Protocol: Document 09/25/22 14:32 TS (Rec: 09/25/22 15:26 TS [id number]) Out-Patient Physical Therapy Visit Information Visit Information Visit Type Treatment Note Visit Note SPTA Ray lead treatment, supervised by CÉSAR Andrade. Visit Start Time 14:32 Visit Stop Time 15:15 Total Visit Minutes 43 Visit Number 58 Number of STOCK LAYER Visits 2 PT-OP-B Current Condition Start: 12/21/21 17:31 Freq: Status: Active Protocol: Document 02/21/22 08:19 SAK (Rec: 02/21/22 08:59 SAK [id number]) Current Condition History of Current Condition Onset Date 2013 Current Complaints Decreased strength, stamina, near falls History of Current Condition Pt is a 66 year old male very well known to this clinic who comes in to skilled PT today with a recent decline in functional mobility, strength, activity tolerance, and balance. Pt had suffered a CVA in 2013, and has been seen multiple times at this clinic since that time to improve balance and activity tolerance . At baseline, pt has fairly significant right hemiparesis and is almost entirely non- verbal. 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 Pt's notes that pt has been experiencing some problems with his lab values, especially a decrease in sodium and iron. also notes that previously, pt would enjoy going out around the town, but now he just prefers to stay home and only moves around from his chair to the bathroom and back. During prior rounds of PT, it has been difficult to convince Sukh to participate in his HEP, however his notes that their son-in-law recently became a STOCK LAYER, so they are hopeful that he will be able to help direct a more comprehensive HEP. PT-OP-C Subjective Start: 12/21/21 17:31 Freq: Status: Active Protocol: Document 09/25/22 14:32 TS (Rec: 09/25/22 15:26 TS [id number]) OP-PT Subjective Patient Comments Patient Comments Pt indicates his energy level is good today. PT-OP-D Balance Start: 12/21/21 17:31 Freq: Status: Active Protocol: Document 06/05/22 11:15 DCW (Rec: 06/05/22 11:51 DCW [id number]) Balance Tests Fuchs Balance Test Fuchs Balance Test Score 41/56 Fuchs Impairment Rating 20 to 39% Impaired (Score 34- 44) Fuchs Balance Assessment Evaluation Sitting to Standing Ability Independent w/Hands Unsupported Stance Safely- 2 minutes Sitting Unsupported, Feet on Floor Safely- 2 minutes Standing to Sitting Ability Assist, Control w/Hands Transfer Ability Safely, Hand Use Unsupported Stance- Eyes Closed Safely, 10 seconds Unsupported Stance- Eyes Open Independent, 1 minute Reaching Forward Standing Safely, 5 inches Pick- Up Object From Floor Supervision Look Behind Shoulder - Standing Shifts Weight Unilateral Turning 360 Degrees Turns slowly, but safely Unsupported Stance, Alternating Feet on 2 Steps w/Minimum Assist Stair Unsupported Tandem Stance Holds Tandem- 30 seconds Unilateral Leg Stance Lifts Leg/Unable to Hold Total Score Fuchs Total Score (out of 56 points) 41 Fuchs Impairment Rating 20 to 39% Impaired (Score 34- 44) PT-OP-E Functional Tests Start: 12/21/21 17:31 Freq: Status: Active Protocol: Document 09/06/22 13:50 DCW (Rec: 09/06/22 14:33 DCW [id number]) Functional Tests Timed Up and Go (TUG) Score 36.14 /c LBQC Comments 3-Trial average (37.24, 36.75, 34.42) TUG Impairment Rating 100% Impaired (Score 20) PT-OP-G Mobility & Gait Start: 12/21/21 17:31 Freq: Status: Active Protocol: Document 06/05/22 11:15 DCW (Rec: 06/05/22 11:51 DCW [id number]) OP Gait Assessment Gait Gait Assistance Required: Standby Assistance Distance (Feet) 282 Able to Maintain Weight Bearing Status Yes During Gait Assistive Devices Assistive Device Gait Belt,Straight Cane Orthotic/Prosthetic Devices or Brace: Yes Gait Deviations General Gait Pattern Ataxic,Decreased Stride Length ,Decreased Feet Clearance, Flexed Trunk,Lateral Trunk Lean,Step-to Gait Factors Limiting Gait Function Factors Limiting Gait Function Abnormal Tonal Influences, Decreased Activity Tolerance, Decreased Strength,Limited Range of Motion,Poor Balance, Poor Safety Awareness Comments Gait Comments Pt ambulates with a step-to gait pattern, keeps his right arm in a flexed, guarded position, slow meenakshi, left foot internally rotated PT-OP-M Strength Start: 12/21/21 17:31 Freq: Status: Active Protocol: Document 06/05/22 11:15 DCW (Rec: 06/05/22 11:51 DCW [id number]) Hip Strength Hip Manual Muscle Testing Right Flexion (L2) 2+ Poor+ Extension (S1) 3- Fair- Abduction 2- Poor- Adduction 3 Fair External Rotation 2 Poor Internal Rotation 2 Poor Left Flexion (L2) 4+ Good+ Extension (S1) 4+ Good+ Abduction 5 Normal Adduction 4+ Good+ External Rotation 4 Good Internal Rotation 4 Good Knee Strength Knee Manual Muscle Testing Right Flexion (S2) 3- Fair- Extension (L3) 3+ Fair+ Left Flexion (S2) 5 Normal Extension (L3) 5 Normal Ankle/Foot Strength Ankle and Foot Manual Muscle Testing Left Dorsiflexion (L4) 5 Normal Plantarflexion (S1) 5 Normal Right Comments AFO PT-OP-Q Treatments Start: 12/21/21 17:31 Freq: Status: Active Protocol: Document 09/25/22 14:32 TS (Rec: 09/25/22 15:26 TS [id number]) Gait Training Gait Activity 6MWT Description 6MWT Device Used quad cane Level of Assistance CGA Surface Flat Comments Pt requires use of quad cane for gait and balance activities, is limiting factor in improving score. Neuro Re-Education Treatment Balance Activities squat objects off floor Details krishnamurthy bag toss into bucket Surface blue foam Equipment // bars Reps/Duration 5 mins Comments Krishnamurthy bags on top of cones, squat and toss into bucket, No LOB Other Activities Testing Details FUCHS 09/25/22 Comments 39/56, safe ambulation with assistive device PT-OP-T Assessment and Plan Start: 12/21/21 17:31 Freq: Status: Active Protocol: Document 09/25/22 14:32 TS (Rec: 09/25/22 15:26 TS [id number]) Physical Therapy Assessment Goals Three Impairment Pt in high falls-risk category Short Term Goal (STG) Pt to improve 6MWT distance by at least 180' to 467' 01/19/22: baseline assessment: 217 ft in 6 min w/ LBQC. 02/09/22: 259 ft in 6 min w/ SBQC 3 pt gait maintaining 70- 72 bpm w/ metronome. 02/13/22: 189 ft in 6min w/qc decrease to 65 bpm metronome with 2 brief stand rests, need to sit in chair end 6MWT, decline head turn ask 30 ft further to bike, nodded yes when asked if dizzy. 03/12/22: Minimal change since eval 06/05/22: Minimal change since eval 08/28/22: 266 ft w/ LBQC, 0.73 ft/sec, decrease .08 ft/sec. 09/25/22: 188ft in 4 mins 6 secs STG Duration 11/01/22 Distributor Sales Manager Goal (LTG) Pt to increase Fuchs score by at least 7 points to 35/56 to demonstrate a decrease in his falls risk 01/23/22: Fuchs Balance Score 24 /56 today 03/12/22: scores 31/56 today 06/05/22: Met, 41/56. NEW GOAL: Fuchs score of 45/56 to demonstrate low falls risk 08/28/22: 38/56, primarily needs support of QC 09/25/22: FUCHS 39/56 LTG Duration 11/01/22 progressing 09/25/22 Progressing Two Impairment Pt exhibits R LE MMT measured between 2-/5 to 3+/5 Distributor Sales Manager Goal (LTG) Pt to improve R LE MMT in all planes to at least 3/5 01/23/22: no significant change noted with MMT today 03/12/22: no significant change noted with MMT today LTG Duration 11/01/22 One Impairment Pt does not participate in an appropriate home exercise program Short Term Goal (STG) Pt to be compliant with an approrpiate HEP 01/23/22: patient indicated not doing exercises at home, though also had quizzical look on face when asked about exercises. Has previously been issued written HEP. 08/28/22: Pt shook head side to side indicating doesn't do his exercises at home. STG Duration 11/01/22 Progress Towards Goals Progress Towards Goals Progressing Toward Goals,Slow Progress due to Activity Tolerance Progress Comments Pt is progressing to goal #3 with 39/56 on Fuchs, Goal 45/56 . Assessment Summary Assessment Pt fatigued at 4min 6 sec kvng during 6 min walk test, going 188ft, previous 266 ft in 6 mins. Pt progressed to goal #3 with score of 39/56 from previous 38/56, cane is limiting factor in progressing . Pt continues to require rest breaks throughout treatment. Pt will continue to benefit from intervention to improve Fuchs score and ambulation tolerance for increased independence. Physical Therapy Plan Frequency and Duration Frequency of Treatment 2x/Week Plan of Care Start Date 09/06/22 Plan of Care End Date 11/01/22 Therapeutic Interventions Therapeutic Interventions Aquatic Therapy,Balance Training,Gait Training,Home Exercise Program,Joint Mobilizations,Manual Therapy, Neuromuscular Re-education, Patient/Caregiver Education, Self-Care/Home Management,Soft Tissue Mobilization, Therapeutic Activities, Therapeutic Exercises Next Visit Focus/Plan Next Note Type Treatment Note Next Visit Plan Next tx: Perform step ups, continue uneven putting, shuttle recovery, 2 point gait on uneven surfaces. POC: Continue Warm up bike, shuttle balance, functional strength and balance challenges.
--- NOTE | 2022-10-02 12:28 | PT.OTN ---
Current Diagnoses Ataxic gait (10/02/22) Other abnormalities of gait and mobility (10/02/22) Weakness (10/02/22) Personal history of transient ischemic attack (TIA), and cerebral infarction without residual deficits (10/02/22) History of falling (10/02/22) Physical Therapy Treatment Note PT-OP-A Visit Information Start: 12/21/21 17:31 Freq: Status: Active Protocol: Document 10/02/22 09:48 SAK (Rec: 10/02/22 10:34 [facility] [id number]) Out-Patient Physical Therapy Visit Information Visit Information Visit Type Treatment Note Visit Start Time 09:48 Total Visit Minutes 42 Visit Number 59 Number of BATCH ROOM TECHNICIAN Visits 0 PT-OP-B Current Condition Start: 12/21/21 17:31 Freq: Status: Active Protocol: Document 02/21/22 08:19 SAK (Rec: 02/21/22 08:59 SAK [id number]) Current Condition History of Current Condition Onset Date 2013 Current Complaints Decreased strength, stamina, near falls History of Current Condition Pt is a 66 year old male very well known to this clinic who comes in to skilled PT today with a recent decline in functional mobility, strength, activity tolerance, and balance. Pt had suffered a CVA in 2013, and has been seen multiple times at this clinic since that time to improve balance and activity tolerance . At baseline, pt has fairly significant right hemiparesis and is almost entirely non- verbal. 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 Pt's notes that pt has been experiencing some problems with his lab values, especially a decrease in sodium and iron. also notes that previously, pt would enjoy going out around the town, but now he just prefers to stay home and only moves around from his chair to the bathroom and back. During prior rounds of PT, it has been difficult to convince Sukh to participate in his HEP, however his notes that their son-in-law recently became a BATCH ROOM TECHNICIAN, so they are hopeful that he will be able to help direct a more comprehensive HEP. PT-OP-C Subjective Start: 12/21/21 17:31 Freq: Status: Active Protocol: Document 10/02/22 09:48 SAK (Rec: 10/02/22 10:34 SAK [id number]) OP-PT Subjective Patient Comments Patient Comments Caregiver reports [place] blood sugar low for him at 100 this am, he is feeling a little shaky. PT-OP-D Balance Start: 12/21/21 17:31 Freq: Status: Active Protocol: Document 06/05/22 11:15 DCW (Rec: 06/05/22 11:51 DCW [id number]) Balance Tests Fuchs Balance Test Fuchs Balance Test Score 41/56 Fuchs Impairment Rating 20 to 39% Impaired (Score 34- 44) Fuchs Balance Assessment Evaluation Sitting to Standing Ability Independent w/Hands Unsupported Stance Safely- 2 minutes Sitting Unsupported, Feet on Floor Safely- 2 minutes Standing to Sitting Ability Assist, Control w/Hands Transfer Ability Safely, Hand Use Unsupported Stance- Eyes Closed Safely, 10 seconds Unsupported Stance- Eyes Open Independent, 1 minute Reaching Forward Standing Safely, 5 inches Pick- Up Object From Floor Supervision Look Behind Shoulder - Standing Shifts Weight Unilateral Turning 360 Degrees Turns slowly, but safely Unsupported Stance, Alternating Feet on 2 Steps w/Minimum Assist Stair Unsupported Tandem Stance Holds Tandem- 30 seconds Unilateral Leg Stance Lifts Leg/Unable to Hold Total Score Fuchs Total Score (out of 56 points) 41 Fuchs Impairment Rating 20 to 39% Impaired (Score 34- 44) PT-OP-E Functional Tests Start: 12/21/21 17:31 Freq: Status: Active Protocol: Document 09/06/22 13:50 DCW (Rec: 09/06/22 14:33 DCW [id number]) Functional Tests Timed Up and Go (TUG) Score 36.14 /c LBQC Comments 3-Trial average (37.24, 36.75, 34.42) TUG Impairment Rating 100% Impaired (Score 20) PT-OP-G Mobility & Gait Start: 12/21/21 17:31 Freq: Status: Active Protocol: Document 06/05/22 11:15 DCW (Rec: 06/05/22 11:51 DCW [id number]) OP Gait Assessment Gait Gait Assistance Required: Standby Assistance Distance (Feet) 282 Able to Maintain Weight Bearing Status Yes During Gait Assistive Devices Assistive Device Gait Belt,Straight Cane Orthotic/Prosthetic Devices or Brace: Yes Gait Deviations General Gait Pattern Ataxic,Decreased Stride Length ,Decreased Feet Clearance, Flexed Trunk,Lateral Trunk Lean,Step-to Gait Factors Limiting Gait Function Factors Limiting Gait Function Abnormal Tonal Influences, Decreased Activity Tolerance, Decreased Strength,Limited Range of Motion,Poor Balance, Poor Safety Awareness Comments Gait Comments Pt ambulates with a step-to gait pattern, keeps his right arm in a flexed, guarded position, slow meenakshi, left foot internally rotated PT-OP-M Strength Start: 12/21/21 17:31 Freq: Status: Active Protocol: Document 06/05/22 11:15 DCW (Rec: 06/05/22 11:51 DCW [id number]) Hip Strength Hip Manual Muscle Testing Right Flexion (L2) 2+ Poor+ Extension (S1) 3- Fair- Abduction 2- Poor- Adduction 3 Fair External Rotation 2 Poor Internal Rotation 2 Poor Left Flexion (L2) 4+ Good+ Extension (S1) 4+ Good+ Abduction 5 Normal Adduction 4+ Good+ External Rotation 4 Good Internal Rotation 4 Good Knee Strength Knee Manual Muscle Testing Right Flexion (S2) 3- Fair- Extension (L3) 3+ Fair+ Left Flexion (S2) 5 Normal Extension (L3) 5 Normal Ankle/Foot Strength Ankle and Foot Manual Muscle Testing Left Dorsiflexion (L4) 5 Normal Plantarflexion (S1) 5 Normal Right Comments AFO PT-OP-Q Treatments Start: 12/21/21 17:31 Freq: Status: Active Protocol: Document 10/02/22 09:48 TOLU (Rec: 10/02/22 10:34 SAK [id number]) Cardio Equipment Recumbent Elliptical ([employer]) Duration (Minutes) 5 Resistance 5 Seat Position 9 Other left UE/ ralph LE's: Gym Equipment Shuttle Recovery Unilateral Squats Details B Resistance L 50# (1x15), R 37# (1x15, 1x8 reps) Shuttle Recovery Platform Stable Bilateral Squats Details No ball needed between B knees today 09/20 Resistance 87# Shuttle Recovery Platform Stable Reps/Time 2x15 Shuttle Balance red clips Details balance fwd/bck wt shift, Comments Wide NATE, Stagger stance, w/ CGA- 10% A cues for inc weight bearing right LE Therapeutic Exercises Standing Exercises side stepping Side bilateral Equipment Used BUE on rail Reps/Minutes 15 ft x1lap PT-OP-T Assessment and Plan Start: 12/21/21 17:31 Freq: Status: Active Protocol: Document 10/02/22 09:48 TOLU (Rec: 10/02/22 10:34 [facility] [id number]) Physical Therapy Assessment Goals Three Impairment Pt in high falls-risk category Short Term Goal (STG) Pt to improve 6MWT distance by at least 180' to 467' 01/19/22: baseline assessment: 217 ft in 6 min w/ LBQC. 02/09/22: 259 ft in 6 min w/ SBQC 3 pt gait maintaining 70- 72 bpm w/ metronome. 02/13/22: 189 ft in 6min w/qc decrease to 65 bpm metronome with 2 brief stand rests, need to sit in chair end 6MWT, decline head turn ask 30 ft further to bike, nodded yes when asked if dizzy. 03/12/22: Minimal change since eval 06/05/22: Minimal change since eval 08/28/22: 266 ft w/ LBQC, 0.73 ft/sec, decrease .08 ft/sec. 09/25/22: 188ft in 4 mins 6 secs STG Duration 11/01/22 Mcc Goal (LTG) Pt to increase Fuchs score by at least 7 points to 35/56 to demonstrate a decrease in his falls risk 01/23/22: Fuchs Balance Score 24 /56 today 03/12/22: scores 31/56 today 06/05/22: Met, 41/56. NEW GOAL: Fuchs score of 45/56 to demonstrate low falls risk 08/28/22: 38/56, primarily needs support of QC 09/25/22: FUCHS 39/56 LTG Duration 11/01/22 progressing 09/25/22 Progressing Two Impairment Pt exhibits R LE MMT measured between 2-/5 to 3+/5 Manager Float Goal (LTG) Pt to improve R LE MMT in all planes to at least 3/5 01/23/22: no significant change noted with MMT today 03/12/22: no significant change noted with MMT today LTG Duration 11/01/22 One Impairment Pt does not participate in an appropriate home exercise program Short Term Goal (STG) Pt to be compliant with an approrpiate HEP 01/23/22: patient indicated not doing exercises at home, though also had quizzical look on face when asked about exercises. Has previously been issued written HEP. 08/28/22: Pt shook head side to side indicating doesn't do his exercises at home. STG Duration 11/01/22 Assessment Summary Assessment Patient initially not feeling well, but improved through session. Able to progress to bal side to side on shuttle bal with red chains though only for a few seconds at a time begore high amplitude movements caused him to lean on left forearm to stop them. Cont to need cues to increase right LE weight bearing with ex and gait. Physical Therapy Plan Frequency and Duration Frequency of Treatment 2x/Week Plan of Care Start Date 09/06/22 Plan of Care End Date 11/01/22 Therapeutic Interventions Therapeutic Interventions Aquatic Therapy,Balance Training,Gait Training,Home Exercise Program,Joint Mobilizations,Manual Therapy, Neuromuscular Re-education, Patient/Caregiver Education, Self-Care/Home Management,Soft Tissue Mobilization, Therapeutic Activities, Therapeutic Exercises Next Visit Focus/Plan Next Note Type Treatment Note Next Visit Plan Next tx: Perform step ups, continue uneven putting, shuttle recovery, 2 point gait on uneven surfaces. POC: Continue Warm up bike, shuttle balance, functional strength and balance challenge
--- NOTE | 2022-10-02 12:29 | PT.OTN ---
Current Diagnoses Ataxic gait (10/02/22) Other abnormalities of gait and mobility (10/02/22) Weakness (10/02/22) Personal history of transient ischemic attack (TIA), and cerebral infarction without residual deficits (10/02/22) History of falling (10/02/22) Physical Therapy Treatment Note PT-OP-A Visit Information Start: 12/21/21 17:31 Freq: Status: Active Protocol: Document 10/02/22 09:48 SAK (Rec: 10/02/22 10:34 [facility] [id number]) Out-Patient Physical Therapy Visit Information Visit Information Visit Type Treatment Note Visit Start Time 09:48 Total Visit Minutes 42 Visit Number 59 Number of TEST PULLER Visits 0 PT-OP-B Current Condition Start: 12/21/21 17:31 Freq: Status: Active Protocol: Document 02/21/22 08:19 SAK (Rec: 02/21/22 08:59 SAK [id number]) Current Condition History of Current Condition Onset Date 2013 Current Complaints Decreased strength, stamina, near falls History of Current Condition Pt is a 66 year old male very well known to this clinic who comes in to skilled PT today with a recent decline in functional mobility, strength, activity tolerance, and balance. Pt had suffered a CVA in 2013, and has been seen multiple times at this clinic since that time to improve balance and activity tolerance . At baseline, pt has fairly significant right hemiparesis and is almost entirely non- verbal. 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 Pt's notes that pt has been experiencing some problems with his lab values, especially a decrease in sodium and iron. also notes that previously, pt would enjoy going out around the town, but now he just prefers to stay home and only moves around from his chair to the bathroom and back. During prior rounds of PT, it has been difficult to convince Sukh to participate in his HEP, however his notes that their son-in-law recently became a TEST PULLER, so they are hopeful that he will be able to help direct a more comprehensive HEP. PT-OP-C Subjective Start: 12/21/21 17:31 Freq: Status: Active Protocol: Document 10/02/22 09:48 SAK (Rec: 10/02/22 10:34 SAK [id number]) OP-PT Subjective Patient Comments Patient Comments Caregiver reports [place] blood sugar low for him at 100 this am, he is feeling a little shaky. PT-OP-D Balance Start: 12/21/21 17:31 Freq: Status: Active Protocol: Document 06/05/22 11:15 DCW (Rec: 06/05/22 11:51 DCW [id number]) Balance Tests Fuchs Balance Test Fuchs Balance Test Score 41/56 Fuchs Impairment Rating 20 to 39% Impaired (Score 34- 44) Fuchs Balance Assessment Evaluation Sitting to Standing Ability Independent w/Hands Unsupported Stance Safely- 2 minutes Sitting Unsupported, Feet on Floor Safely- 2 minutes Standing to Sitting Ability Assist, Control w/Hands Transfer Ability Safely, Hand Use Unsupported Stance- Eyes Closed Safely, 10 seconds Unsupported Stance- Eyes Open Independent, 1 minute Reaching Forward Standing Safely, 5 inches Pick- Up Object From Floor Supervision Look Behind Shoulder - Standing Shifts Weight Unilateral Turning 360 Degrees Turns slowly, but safely Unsupported Stance, Alternating Feet on 2 Steps w/Minimum Assist Stair Unsupported Tandem Stance Holds Tandem- 30 seconds Unilateral Leg Stance Lifts Leg/Unable to Hold Total Score Fuchs Total Score (out of 56 points) 41 Fuchs Impairment Rating 20 to 39% Impaired (Score 34- 44) PT-OP-E Functional Tests Start: 12/21/21 17:31 Freq: Status: Active Protocol: Document 09/06/22 13:50 DCW (Rec: 09/06/22 14:33 DCW [id number]) Functional Tests Timed Up and Go (TUG) Score 36.14 /c LBQC Comments 3-Trial average (37.24, 36.75, 34.42) TUG Impairment Rating 100% Impaired (Score 20) PT-OP-G Mobility & Gait Start: 12/21/21 17:31 Freq: Status: Active Protocol: Document 06/05/22 11:15 DCW (Rec: 06/05/22 11:51 DCW [id number]) OP Gait Assessment Gait Gait Assistance Required: Standby Assistance Distance (Feet) 282 Able to Maintain Weight Bearing Status Yes During Gait Assistive Devices Assistive Device Gait Belt,Straight Cane Orthotic/Prosthetic Devices or Brace: Yes Gait Deviations General Gait Pattern Ataxic,Decreased Stride Length ,Decreased Feet Clearance, Flexed Trunk,Lateral Trunk Lean,Step-to Gait Factors Limiting Gait Function Factors Limiting Gait Function Abnormal Tonal Influences, Decreased Activity Tolerance, Decreased Strength,Limited Range of Motion,Poor Balance, Poor Safety Awareness Comments Gait Comments Pt ambulates with a step-to gait pattern, keeps his right arm in a flexed, guarded position, slow meenakshi, left foot internally rotated PT-OP-M Strength Start: 12/21/21 17:31 Freq: Status: Active Protocol: Document 06/05/22 11:15 DCW (Rec: 06/05/22 11:51 DCW [id number]) Hip Strength Hip Manual Muscle Testing Right Flexion (L2) 2+ Poor+ Extension (S1) 3- Fair- Abduction 2- Poor- Adduction 3 Fair External Rotation 2 Poor Internal Rotation 2 Poor Left Flexion (L2) 4+ Good+ Extension (S1) 4+ Good+ Abduction 5 Normal Adduction 4+ Good+ External Rotation 4 Good Internal Rotation 4 Good Knee Strength Knee Manual Muscle Testing Right Flexion (S2) 3- Fair- Extension (L3) 3+ Fair+ Left Flexion (S2) 5 Normal Extension (L3) 5 Normal Ankle/Foot Strength Ankle and Foot Manual Muscle Testing Left Dorsiflexion (L4) 5 Normal Plantarflexion (S1) 5 Normal Right Comments AFO PT-OP-Q Treatments Start: 12/21/21 17:31 Freq: Status: Active Protocol: Document 10/02/22 09:48 TOLU (Rec: 10/02/22 10:34 SAK [id number]) Cardio Equipment Recumbent Elliptical ([employer]) Duration (Minutes) 5 Resistance 5 Seat Position 9 Other left UE/ ralph LE's: Gym Equipment Shuttle Recovery Unilateral Squats Details B Resistance L 50# (1x15), R 37# (1x15, 1x8 reps) Shuttle Recovery Platform Stable Bilateral Squats Details No ball needed between B knees today 09/20 Resistance 87# Shuttle Recovery Platform Stable Reps/Time 2x15 Shuttle Balance red clips Details balance fwd/bck wt shift, Comments Wide NATE, Stagger stance, w/ CGA- 10% A cues for inc weight bearing right LE Therapeutic Exercises Standing Exercises side stepping Side bilateral Equipment Used BUE on rail Reps/Minutes 15 ft x1lap PT-OP-T Assessment and Plan Start: 12/21/21 17:31 Freq: Status: Active Protocol: Document 10/02/22 09:48 TOLU (Rec: 10/02/22 10:34 [facility] [id number]) Physical Therapy Assessment Goals Three Impairment Pt in high falls-risk category Short Term Goal (STG) Pt to improve 6MWT distance by at least 180' to 467' 01/19/22: baseline assessment: 217 ft in 6 min w/ LBQC. 02/09/22: 259 ft in 6 min w/ SBQC 3 pt gait maintaining 70- 72 bpm w/ metronome. 02/13/22: 189 ft in 6min w/qc decrease to 65 bpm metronome with 2 brief stand rests, need to sit in chair end 6MWT, decline head turn ask 30 ft further to bike, nodded yes when asked if dizzy. 03/12/22: Minimal change since eval 06/05/22: Minimal change since eval 08/28/22: 266 ft w/ LBQC, 0.73 ft/sec, decrease .08 ft/sec. 09/25/22: 188ft in 4 mins 6 secs STG Duration 11/01/22 Half-Way Goal (LTG) Pt to increase Fuchs score by at least 7 points to 35/56 to demonstrate a decrease in his falls risk 01/23/22: Fuchs Balance Score 24 /56 today 03/12/22: scores 31/56 today 06/05/22: Met, 41/56. NEW GOAL: Fuchs score of 45/56 to demonstrate low falls risk 08/28/22: 38/56, primarily needs support of QC 09/25/22: FUCHS 39/56 LTG Duration 11/01/22 progressing 09/25/22 Progressing Two Impairment Pt exhibits R LE MMT measured between 2-/5 to 3+/5 Diesel Pile Driver Operator Goal (LTG) Pt to improve R LE MMT in all planes to at least 3/5 01/23/22: no significant change noted with MMT today 03/12/22: no significant change noted with MMT today LTG Duration 11/01/22 One Impairment Pt does not participate in an appropriate home exercise program Short Term Goal (STG) Pt to be compliant with an approrpiate HEP 01/23/22: patient indicated not doing exercises at home, though also had quizzical look on face when asked about exercises. Has previously been issued written HEP. 08/28/22: Pt shook head side to side indicating doesn't do his exercises at home. STG Duration 11/01/22 Assessment Summary Assessment Patient initially not feeling well, but improved through session. Able to progress to bal side to side on shuttle bal with red chains though only for a few seconds at a time begore high amplitude movements caused him to lean on left forearm to stop them. Cont to need cues to increase right LE weight bearing with ex and gait. Physical Therapy Plan Frequency and Duration Frequency of Treatment 2x/Week Plan of Care Start Date 09/06/22 Plan of Care End Date 11/01/22 Therapeutic Interventions Therapeutic Interventions Aquatic Therapy,Balance Training,Gait Training,Home Exercise Program,Joint Mobilizations,Manual Therapy, Neuromuscular Re-education, Patient/Caregiver Education, Self-Care/Home Management,Soft Tissue Mobilization, Therapeutic Activities, Therapeutic Exercises Next Visit Focus/Plan Next Note Type Treatment Note Next Visit Plan Next tx: Perform step ups, continue uneven putting, shuttle recovery, 2 point gait on uneven surfaces. POC: Continue Warm up bike, shuttle balance, functional strength and balance challenge
--- NOTE | 2022-10-04 16:03 | PT.OTN ---
Current Diagnoses Ataxic gait (10/04/22) Other abnormalities of gait and mobility (10/04/22) Weakness (10/04/22) Personal history of transient ischemic attack (TIA), and cerebral infarction without residual deficits (10/04/22) History of falling (10/04/22) Physical Therapy Treatment Note PT-OP-A Visit Information Start: 12/21/21 17:31 Freq: Status: Active Protocol: Document 10/04/22 15:19 DCW (Rec: 10/04/22 16:02 DCW [id number]) Out-Patient Physical Therapy Visit Information Visit Information Visit Type Treatment Note Visit Start Time 15:19 Visit Stop Time 16:00 Total Visit Minutes 41 Visit Number 60 Number of COMMUNITY RECREATION COORDINATOR Visits 0 Evaluation Information Evaluation Date 12/21/21 PT-OP-B Current Condition Start: 12/21/21 17:31 Freq: Status: Active Protocol: Document 02/21/22 08:19 SAK (Rec: 02/21/22 08:59 SAK [id number]) Current Condition History of Current Condition Onset Date 2013 Current Complaints Decreased strength, stamina, near falls History of Current Condition Pt is a 66 year old male very well known to this clinic who comes in to skilled PT today with a recent decline in functional mobility, strength, activity tolerance, and balance. Pt had suffered a CVA in 2013, and has been seen multiple times at this clinic since that time to improve balance and activity tolerance . At baseline, pt has fairly significant right hemiparesis and is almost entirely non- verbal. 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 Pt's notes that pt has been experiencing some problems with his lab values, especially a decrease in sodium and iron. also notes that previously, pt would enjoy going out around the town, but now he just prefers to stay home and only moves around from his chair to the bathroom and back. During prior rounds of PT, it has been difficult to convince Sukh to participate in his HEP, however his notes that their son-in-law recently became a COMMUNITY RECREATION COORDINATOR, so they are hopeful that he will be able to help direct a more comprehensive HEP. PT-OP-C Subjective Start: 12/21/21 17:31 Freq: Status: Active Protocol: Document 10/04/22 15:19 DCW (Rec: 10/04/22 16:02 DCW [id number]) OP-PT Subjective Patient Comments Patient Comments Pt indicates he is still feeling a little shakey with his recent blood sugar issues. PT-OP-D Balance Start: 12/21/21 17:31 Freq: Status: Active Protocol: Document 06/05/22 11:15 DCW (Rec: 06/05/22 11:51 DCW [id number]) Balance Tests Fuchs Balance Test Fuchs Balance Test Score 41/56 Fuchs Impairment Rating 20 to 39% Impaired (Score 34- 44) Fuchs Balance Assessment Evaluation Sitting to Standing Ability Independent w/Hands Unsupported Stance Safely- 2 minutes Sitting Unsupported, Feet on Floor Safely- 2 minutes Standing to Sitting Ability Assist, Control w/Hands Transfer Ability Safely, Hand Use Unsupported Stance- Eyes Closed Safely, 10 seconds Unsupported Stance- Eyes Open Independent, 1 minute Reaching Forward Standing Safely, 5 inches Pick- Up Object From Floor Supervision Look Behind Shoulder - Standing Shifts Weight Unilateral Turning 360 Degrees Turns slowly, but safely Unsupported Stance, Alternating Feet on 2 Steps w/Minimum Assist Stair Unsupported Tandem Stance Holds Tandem- 30 seconds Unilateral Leg Stance Lifts Leg/Unable to Hold Total Score Fuchs Total Score (out of 56 points) 41 Fuchs Impairment Rating 20 to 39% Impaired (Score 34- 44) PT-OP-E Functional Tests Start: 12/21/21 17:31 Freq: Status: Active Protocol: Document 09/06/22 13:50 DCW (Rec: 09/06/22 14:33 DCW [id number]) Functional Tests Timed Up and Go (TUG) Score 36.14 /c LBQC Comments 3-Trial average (37.24, 36.75, 34.42) TUG Impairment Rating 100% Impaired (Score 20) PT-OP-G Mobility & Gait Start: 12/21/21 17:31 Freq: Status: Active Protocol: Document 06/05/22 11:15 DCW (Rec: 06/05/22 11:51 DCW [id number]) OP Gait Assessment Gait Gait Assistance Required: Standby Assistance Distance (Feet) 282 Able to Maintain Weight Bearing Status Yes During Gait Assistive Devices Assistive Device Gait Belt,Straight Cane Orthotic/Prosthetic Devices or Brace: Yes Gait Deviations General Gait Pattern Ataxic,Decreased Stride Length ,Decreased Feet Clearance, Flexed Trunk,Lateral Trunk Lean,Step-to Gait Factors Limiting Gait Function Factors Limiting Gait Function Abnormal Tonal Influences, Decreased Activity Tolerance, Decreased Strength,Limited Range of Motion,Poor Balance, Poor Safety Awareness Comments Gait Comments Pt ambulates with a step-to gait pattern, keeps his right arm in a flexed, guarded position, slow meenakshi, left foot internally rotated PT-OP-M Strength Start: 12/21/21 17:31 Freq: Status: Active Protocol: Document 06/05/22 11:15 DCW (Rec: 06/05/22 11:51 DCW [id number]) Hip Strength Hip Manual Muscle Testing Right Flexion (L2) 2+ Poor+ Extension (S1) 3- Fair- Abduction 2- Poor- Adduction 3 Fair External Rotation 2 Poor Internal Rotation 2 Poor Left Flexion (L2) 4+ Good+ Extension (S1) 4+ Good+ Abduction 5 Normal Adduction 4+ Good+ External Rotation 4 Good Internal Rotation 4 Good Knee Strength Knee Manual Muscle Testing Right Flexion (S2) 3- Fair- Extension (L3) 3+ Fair+ Left Flexion (S2) 5 Normal Extension (L3) 5 Normal Ankle/Foot Strength Ankle and Foot Manual Muscle Testing Left Dorsiflexion (L4) 5 Normal Plantarflexion (S1) 5 Normal Right Comments AFO PT-OP-Q Treatments Start: 12/21/21 17:31 Freq: Status: Active Protocol: Document 10/04/22 15:19 DCW (Rec: 10/04/22 16:02 DCW [id number]) Cardio Equipment Recumbent Elliptical (Biodex) Duration (Minutes) 5 Resistance 5 Seat Position 9 Other left UE/ ralph LE's: Gym Equipment Shuttle Recovery Unilateral Squats Details B Resistance L 50# (1x15), R 37# (1x15, 1x8 reps) Shuttle Recovery Platform Stable Bilateral Squats Resistance 87# Shuttle Recovery Platform Stable Reps/Time 2x15 Shuttle Balance red clips Details balance fwd/bck wt shift, Comments Wide NATE, Stagger stance, w/ CGA- 10% A cues for inc weight bearing right LE Therapeutic Exercises Standing Exercises side stepping Side bilateral Equipment Used BUE on rail Reps/Minutes 15 ft x1lap Neuro Re-Education Treatment Balance Activities rocker board Details DF/PF Comments cued increase WB into RLE. Pt improved centering posture with use mirror hurdles Details side-stepping Surface firm Equipment 6 hurdles, // bar Tandem Details Tandem stance Equipment // bars Reps/Duration EO uneven surface Details SLS Surface Davis foam PT-OP-T Assessment and Plan Start: 12/21/21 17:31 Freq: Status: Active Protocol: Document 10/04/22 15:19 DCW (Rec: 10/04/22 16:02 DCW [id number]) Physical Therapy Assessment Goals Three Impairment Pt in high falls-risk category Short Term Goal (STG) Pt to improve 6MWT distance by at least 180' to 467' 01/19/22: baseline assessment: 217 ft in 6 min w/ LBQC. 02/09/22: 259 ft in 6 min w/ SBQC 3 pt gait maintaining 70- 72 bpm w/ metronome. 02/13/22: 189 ft in 6min w/qc decrease to 65 bpm metronome with 2 brief stand rests, need to sit in chair end 6MWT, decline head turn ask 30 ft further to bike, nodded yes when asked if dizzy. 03/12/22: Minimal change since eval 06/05/22: Minimal change since eval 08/28/22: 266 ft w/ LBQC, 0.73 ft/sec, decrease .08 ft/sec. 09/25/22: 188ft in 4 mins 6 secs STG Duration 11/01/22 Retirement Goal (LTG) Pt to increase Fuchs score by at least 7 points to 35/56 to demonstrate a decrease in his falls risk 01/23/22: Fuchs Balance Score 24 /56 today 03/12/22: scores 31/56 today 06/05/22: Met, 41/56. NEW GOAL: Fuchs score of 45/56 to demonstrate low falls risk 08/28/22: 38/56, primarily needs support of QC 09/25/22: FUCHS 39/56 LTG Duration 11/01/22 progressing 09/25/22 Progressing Two Impairment Pt exhibits R LE MMT measured between 2-/5 to 3+/5 Curbing Stonecutter Goal (LTG) Pt to improve R LE MMT in all planes to at least 3/5 01/23/22: no significant change noted with MMT today 03/12/22: no significant change noted with MMT today LTG Duration 11/01/22 One Impairment Pt does not participate in an appropriate home exercise program Short Term Goal (STG) Pt to be compliant with an approrpiate HEP 01/23/22: patient indicated not doing exercises at home, though also had quizzical look on face when asked about exercises. Has previously been issued written HEP. 08/28/22: Pt shook head side to side indicating doesn't do his exercises at home. STG Duration 11/01/22 Assessment Summary Assessment Pt showing better tolerance to exercise today after a down session last time, appears to be more stable during gait and balance challenges. Physical Therapy Plan Frequency and Duration Frequency of Treatment 2x/Week Plan of Care Start Date 09/06/22 Plan of Care End Date 11/01/22 Therapeutic Interventions Therapeutic Interventions Aquatic Therapy,Balance Training,Gait Training,Home Exercise Program,Joint Mobilizations,Manual Therapy, Neuromuscular Re-education, Patient/Caregiver Education, Self-Care/Home Management,Soft Tissue Mobilization, Therapeutic Activities, Therapeutic Exercises Next Visit Focus/Plan Next Note Type Treatment Note Next Visit Plan Next tx: Perform step ups, continue uneven putting, shuttle recovery, 2 point gait on uneven surfaces. POC: Continue Warm up bike, shuttle balance, functional strength and balance challenge
--- NOTE | 2022-10-09 15:15 | PT.OTN ---
Current Diagnoses Ataxic gait (10/09/22) Other abnormalities of gait and mobility (10/09/22) Weakness (10/09/22) Personal history of transient ischemic attack (TIA), and cerebral infarction without residual deficits (10/09/22) History of falling (10/09/22) Physical Therapy Treatment Note PT-OP-A Visit Information Start: 12/21/21 17:31 Freq: Status: Active Protocol: Document 10/09/22 14:29 TS (Rec: 10/09/22 15:49 TS [id number]) Out-Patient Physical Therapy Visit Information Visit Information Visit Type Treatment Note Visit Note SPTA Ray lead treatment under the supervision of CÉSAR Andrade. Visit Start Time 14:36 Visit Stop Time 15:15 Total Visit Minutes 39 Visit Number 61 Number of WINDOW SHADE ESTIMATOR Visits 1 PT-OP-B Current Condition Start: 12/21/21 17:31 Freq: Status: Active Protocol: Document 02/21/22 08:19 SAK (Rec: 02/21/22 08:59 SAK [id number]) Current Condition History of Current Condition Onset Date 2013 Current Complaints Decreased strength, stamina, near falls History of Current Condition Pt is a 66 year old male very well known to this clinic who comes in to skilled PT today with a recent decline in functional mobility, strength, activity tolerance, and balance. Pt had suffered a CVA in 2013, and has been seen multiple times at this clinic since that time to improve balance and activity tolerance . At baseline, pt has fairly significant right hemiparesis and is almost entirely non- verbal. 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 Pt's notes that pt has been experiencing some problems with his lab values, especially a decrease in sodium and iron. also notes that previously, pt would enjoy going out around the town, but now he just prefers to stay home and only moves around from his chair to the bathroom and back. During prior rounds of PT, it has been difficult to convince Sukh to participate in his HEP, however his notes that their son-in-law recently became a WINDOW SHADE ESTIMATOR, so they are hopeful that he will be able to help direct a more comprehensive HEP. PT-OP-C Subjective Start: 12/21/21 17:31 Freq: Status: Active Protocol: Document 10/09/22 14:29 TS (Rec: 10/09/22 15:49 TS [id number]) OP-PT Subjective Patient Comments Patient Comments Pt is feeling good this treatment, no reports of shakiness. PT-OP-D Balance Start: 12/21/21 17:31 Freq: Status: Active Protocol: Document 06/05/22 11:15 DCW (Rec: 06/05/22 11:51 DCW [id number]) Balance Tests Fuchs Balance Test Fuchs Balance Test Score 41/56 Fuchs Impairment Rating 20 to 39% Impaired (Score 34- 44) Fuchs Balance Assessment Evaluation Sitting to Standing Ability Independent w/Hands Unsupported Stance Safely- 2 minutes Sitting Unsupported, Feet on Floor Safely- 2 minutes Standing to Sitting Ability Assist, Control w/Hands Transfer Ability Safely, Hand Use Unsupported Stance- Eyes Closed Safely, 10 seconds Unsupported Stance- Eyes Open Independent, 1 minute Reaching Forward Standing Safely, 5 inches Pick- Up Object From Floor Supervision Look Behind Shoulder - Standing Shifts Weight Unilateral Turning 360 Degrees Turns slowly, but safely Unsupported Stance, Alternating Feet on 2 Steps w/Minimum Assist Stair Unsupported Tandem Stance Holds Tandem- 30 seconds Unilateral Leg Stance Lifts Leg/Unable to Hold Total Score Fuchs Total Score (out of 56 points) 41 Fuchs Impairment Rating 20 to 39% Impaired (Score 34- 44) PT-OP-E Functional Tests Start: 12/21/21 17:31 Freq: Status: Active Protocol: Document 09/06/22 13:50 DCW (Rec: 09/06/22 14:33 DCW [id number]) Functional Tests Timed Up and Go (TUG) Score 36.14 /c LBQC Comments 3-Trial average (37.24, 36.75, 34.42) TUG Impairment Rating 100% Impaired (Score 20) PT-OP-G Mobility & Gait Start: 12/21/21 17:31 Freq: Status: Active Protocol: Document 06/05/22 11:15 DCW (Rec: 06/05/22 11:51 DCW [id number]) OP Gait Assessment Gait Gait Assistance Required: Standby Assistance Distance (Feet) 282 Able to Maintain Weight Bearing Status Yes During Gait Assistive Devices Assistive Device Gait Belt,Straight Cane Orthotic/Prosthetic Devices or Brace: Yes Gait Deviations General Gait Pattern Ataxic,Decreased Stride Length ,Decreased Feet Clearance, Flexed Trunk,Lateral Trunk Lean,Step-to Gait Factors Limiting Gait Function Factors Limiting Gait Function Abnormal Tonal Influences, Decreased Activity Tolerance, Decreased Strength,Limited Range of Motion,Poor Balance, Poor Safety Awareness Comments Gait Comments Pt ambulates with a step-to gait pattern, keeps his right arm in a flexed, guarded position, slow meenakshi, left foot internally rotated PT-OP-M Strength Start: 12/21/21 17:31 Freq: Status: Active Protocol: Document 06/05/22 11:15 DCW (Rec: 06/05/22 11:51 DCW [id number]) Hip Strength Hip Manual Muscle Testing Right Flexion (L2) 2+ Poor+ Extension (S1) 3- Fair- Abduction 2- Poor- Adduction 3 Fair External Rotation 2 Poor Internal Rotation 2 Poor Left Flexion (L2) 4+ Good+ Extension (S1) 4+ Good+ Abduction 5 Normal Adduction 4+ Good+ External Rotation 4 Good Internal Rotation 4 Good Knee Strength Knee Manual Muscle Testing Right Flexion (S2) 3- Fair- Extension (L3) 3+ Fair+ Left Flexion (S2) 5 Normal Extension (L3) 5 Normal Ankle/Foot Strength Ankle and Foot Manual Muscle Testing Left Dorsiflexion (L4) 5 Normal Plantarflexion (S1) 5 Normal Right Comments AFO PT-OP-Q Treatments Start: 12/21/21 17:31 Freq: Status: Active Protocol: Document 10/09/22 14:29 TS (Rec: 10/09/22 15:49 TS [id number]) Cardio Equipment Recumbent Elliptical (Biodex) Duration (Minutes) 5 Resistance 5 Seat Position 9 Other left UE/ ralph LE's: Therapeutic Exercises Standing Exercises step up/ down Standing Exercise Name fwd, side stepping Side bilateral Resistance 5# leg wt Equipment Used LLE leading 6 step, RLE leading 4 step, handrail assist Reps/Minutes x~10 Comments cues for tall posture, feet fully placed on step. Neuro Re-Education Treatment Balance Activities Obstacle Course Details with hernandez bag toss Surface uneven Equipment Large blue pad, oval foam, marlen, hernandez bags, wood steps Comments Pt required cues to lead with RLE, 3 point gait pattern. volley w/ balloon Details Reaching out of NATE Surface flat Reps/Duration 3' Comments Required CGA, good recovery with weight shifts. PT-OP-T Assessment and Plan Start: 12/21/21 17:31 Freq: Status: Active Protocol: Document 10/09/22 14:29 TS (Rec: 10/09/22 15:49 TS [id number]) Physical Therapy Assessment Goals Three Impairment Pt in high falls-risk category Short Term Goal (STG) Pt to improve 6MWT distance by at least 180' to 467' 01/19/22: baseline assessment: 217 ft in 6 min w/ LBQC. 02/09/22: 259 ft in 6 min w/ SBQC 3 pt gait maintaining 70- 72 bpm w/ metronome. 02/13/22: 189 ft in 6min w/qc decrease to 65 bpm metronome with 2 brief stand rests, need to sit in chair end 6MWT, decline head turn ask 30 ft further to bike, nodded yes when asked if dizzy. 03/12/22: Minimal change since eval 06/05/22: Minimal change since eval 08/28/22: 266 ft w/ LBQC, 0.73 ft/sec, decrease .08 ft/sec. 09/25/22: 188ft in 4 mins 6 secs STG Duration 11/01/22 Usp Goal (LTG) Pt to increase Fuchs score by at least 7 points to 35/56 to demonstrate a decrease in his falls risk 01/23/22: Fuchs Balance Score 24 /56 today 03/12/22: scores 31/56 today 06/05/22: Met, 41/56. NEW GOAL: Fuchs score of 45/56 to demonstrate low falls risk 08/28/22: 38/56, primarily needs support of QC 09/25/22: FUCHS 39/56 LTG Duration 11/01/22 progressing 09/25/22 Progressing Two Impairment Pt exhibits R LE MMT measured between 2-/5 to 3+/5 Usp Goal (LTG) Pt to improve R LE MMT in all planes to at least 3/5 01/23/22: no significant change noted with MMT today 03/12/22: no significant change noted with MMT today LTG Duration 11/01/22 One Impairment Pt does not participate in an appropriate home exercise program Short Term Goal (STG) Pt to be compliant with an approrpiate HEP 01/23/22: patient indicated not doing exercises at home, though also had quizzical look on face when asked about exercises. Has previously been issued written HEP. 08/28/22: Pt shook head side to side indicating doesn't do his exercises at home. STG Duration 11/01/22 Assessment Summary Assessment Pt required cues for fully placing feet on step for improved balance during step up ex with 5# ankle weights. He demonstrated ability to step on 6 step leading with LLE and handrail support, could not perform step up leading with RLE on 6 step but could perform on 4 step. Pt demonstrated 3 point gait pattern on uneven surface with obstacle course and no LOB. Pt demonstrated good ability to recover from weigth shifts during balloon volley ex. Pt will continue to benefit from intervention to improve activity tolerance, ambulation distance and fuchs balance score to 45. Physical Therapy Plan Frequency and Duration Frequency of Treatment 2x/Week Plan of Care Start Date 09/06/22 Plan of Care End Date 11/01/22 Therapeutic Interventions Therapeutic Interventions Aquatic Therapy,Balance Training,Gait Training,Home Exercise Program,Joint Mobilizations,Manual Therapy, Neuromuscular Re-education, Patient/Caregiver Education, Self-Care/Home Management,Soft Tissue Mobilization, Therapeutic Activities, Therapeutic Exercises Next Visit Focus/Plan Next Note Type Treatment Note Next Visit Plan Next tx: 2 point gait on uneven surfaces, continue shuttle recovery. POC: Continue Warm up bike, shuttle balance, functional strength and balance challenge
--- NOTE | 2022-10-11 15:16 | PT.OTN ---
Current Diagnoses Ataxic gait (10/11/22) Other abnormalities of gait and mobility (10/11/22) Weakness (10/11/22) Personal history of transient ischemic attack (TIA), and cerebral infarction without residual deficits (10/11/22) History of falling (10/11/22) Physical Therapy Treatment Note PT-OP-A Visit Information Start: 12/21/21 17:31 Freq: Status: Active Protocol: Document 10/11/22 12:58 AW (Rec: 10/11/22 15:16 AW [id number]) Out-Patient Physical Therapy Visit Information Visit Information Visit Type Treatment Note Visit Start Time 14:30 Visit Stop Time 15:10 Total Visit Minutes 40 Visit Number 62 Number of CINDER WORKER Visits 0 Evaluation Information Evaluation Date 12/21/21 PT-OP-B Current Condition Start: 12/21/21 17:31 Freq: Status: Active Protocol: Document 02/21/22 08:19 SAK (Rec: 02/21/22 08:59 SAK [id number]) Current Condition History of Current Condition Onset Date 2013 Current Complaints Decreased strength, stamina, near falls History of Current Condition Pt is a 66 year old male very well known to this clinic who comes in to skilled PT today with a recent decline in functional mobility, strength, activity tolerance, and balance. Pt had suffered a CVA in 2013, and has been seen multiple times at this clinic since that time to improve balance and activity tolerance . At baseline, pt has fairly significant right hemiparesis and is almost entirely non- verbal. 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 Pt's notes that pt has been experiencing some problems with his lab values, especially a decrease in sodium and iron. also notes that previously, pt would enjoy going out around the town, but now he just prefers to stay home and only moves around from his chair to the bathroom and back. During prior rounds of PT, it has been difficult to convince Sukh to participate in his HEP, however his notes that their son-in-law recently became a CINDER WORKER, so they are hopeful that he will be able to help direct a more comprehensive HEP. PT-OP-C Subjective Start: 12/21/21 17:31 Freq: Status: Active Protocol: Document 10/11/22 12:58 AW (Rec: 12/08/22 15:16 AW [id number]) OP-PT Subjective Patient Comments Patient Comments Has been feeling a little bit shaky this week. PT-OP-D Balance Start: 12/21/21 17:31 Freq: Status: Active Protocol: Document 06/05/22 11:15 DCW (Rec: 06/05/22 11:51 DCW [id number]) Balance Tests Fuchs Balance Test Fuchs Balance Test Score 41/56 Fuchs Impairment Rating 20 to 39% Impaired (Score 34- 44) Fuchs Balance Assessment Evaluation Sitting to Standing Ability Independent w/Hands Unsupported Stance Safely- 2 minutes Sitting Unsupported, Feet on Floor Safely- 2 minutes Standing to Sitting Ability Assist, Control w/Hands Transfer Ability Safely, Hand Use Unsupported Stance- Eyes Closed Safely, 10 seconds Unsupported Stance- Eyes Open Independent, 1 minute Reaching Forward Standing Safely, 5 inches Pick- Up Object From Floor Supervision Look Behind Shoulder - Standing Shifts Weight Unilateral Turning 360 Degrees Turns slowly, but safely Unsupported Stance, Alternating Feet on 2 Steps w/Minimum Assist Stair Unsupported Tandem Stance Holds Tandem- 30 seconds Unilateral Leg Stance Lifts Leg/Unable to Hold Total Score Fuchs Total Score (out of 56 points) 41 Fuchs Impairment Rating 20 to 39% Impaired (Score 34- 44) PT-OP-E Functional Tests Start: 12/21/21 17:31 Freq: Status: Active Protocol: Document 09/06/22 13:50 DCW (Rec: 09/06/22 14:33 DCW [id number]) Functional Tests Timed Up and Go (TUG) Score 36.14 /c LBQC Comments 3-Trial average (37.24, 36.75, 34.42) TUG Impairment Rating 100% Impaired (Score 20) PT-OP-G Mobility & Gait Start: 12/21/21 17:31 Freq: Status: Active Protocol: Document 06/05/22 11:15 DCW (Rec: 06/05/22 11:51 DCW [id number]) OP Gait Assessment Gait Gait Assistance Required: Standby Assistance Distance (Feet) 282 Able to Maintain Weight Bearing Status Yes During Gait Assistive Devices Assistive Device Gait Belt,Straight Cane Orthotic/Prosthetic Devices or Brace: Yes Gait Deviations General Gait Pattern Ataxic,Decreased Stride Length ,Decreased Feet Clearance, Flexed Trunk,Lateral Trunk Lean,Step-to Gait Factors Limiting Gait Function Factors Limiting Gait Function Abnormal Tonal Influences, Decreased Activity Tolerance, Decreased Strength,Limited Range of Motion,Poor Balance, Poor Safety Awareness Comments Gait Comments Pt ambulates with a step-to gait pattern, keeps his right arm in a flexed, guarded position, slow meenakshi, left foot internally rotated PT-OP-M Strength Start: 12/21/21 17:31 Freq: Status: Active Protocol: Document 06/05/22 11:15 DCW (Rec: 06/05/22 11:51 DCW [id number]) Hip Strength Hip Manual Muscle Testing Right Flexion (L2) 2+ Poor+ Extension (S1) 3- Fair- Abduction 2- Poor- Adduction 3 Fair External Rotation 2 Poor Internal Rotation 2 Poor Left Flexion (L2) 4+ Good+ Extension (S1) 4+ Good+ Abduction 5 Normal Adduction 4+ Good+ External Rotation 4 Good Internal Rotation 4 Good Knee Strength Knee Manual Muscle Testing Right Flexion (S2) 3- Fair- Extension (L3) 3+ Fair+ Left Flexion (S2) 5 Normal Extension (L3) 5 Normal Ankle/Foot Strength Ankle and Foot Manual Muscle Testing Left Dorsiflexion (L4) 5 Normal Plantarflexion (S1) 5 Normal Right Comments AFO PT-OP-Q Treatments Start: 12/21/21 17:31 Freq: Status: Active Protocol: Document 10/11/22 12:58 AW (Rec: 10/11/22 15:16 AW [id number]) Cardio Equipment Recumbent Elliptical ([employer]) Duration (Minutes) 5 Resistance 5 Seat Position 8 Other left UE/ ralph LE's: Gym Equipment Shuttle Recovery Unilateral Squats Details B Resistance L 50# (1x15), R 37# (1x15) Shuttle Recovery Platform Stable Bilateral Squats Resistance 75# Shuttle Recovery Platform Stable Reps/Time 2x15 Neuro Re-Education Treatment Balance Activities rocker board Details A/P, M/L Comments cued increase WB into RLE. squat objects off floor Details krishnamurthy bag toss into bucket Surface blue foam Equipment // bars Reps/Duration 5 mins Comments Krishnamurthy bags on top of cones, squat and toss into bucket, No LOB. Good cross-body reach Tandem Details Tandem stance Equipment // bars Reps/Duration EO uneven surface Details SLS Surface Davis foam PT-OP-T Assessment and Plan Start: 12/21/21 17:31 Freq: Status: Active Protocol: Document 10/11/22 12:58 AW (Rec: 10/11/22 15:16 AW [id number]) Physical Therapy Assessment Goals Three Impairment Pt in high falls-risk category Short Term Goal (STG) Pt to improve 6MWT distance by at least 180' to 467' 01/19/22: baseline assessment: 217 ft in 6 min w/ LBQC. 02/09/22: 259 ft in 6 min w/ SBQC 3 pt gait maintaining 70- 72 bpm w/ metronome. 02/13/22: 189 ft in 6min w/qc decrease to 65 bpm metronome with 2 brief stand rests, need to sit in chair end 6MWT, decline head turn ask 30 ft further to bike, nodded yes when asked if dizzy. 03/12/22: Minimal change since eval 06/05/22: Minimal change since eval 08/28/22: 266 ft w/ LBQC, 0.73 ft/sec, decrease .08 ft/sec. 09/25/22: 188ft in 4 mins 6 secs STG Duration 11/01/22 Marine Underwriter Goal (LTG) Pt to increase Fuchs score by at least 7 points to 35/56 to demonstrate a decrease in his falls risk 01/23/22: Fuchs Balance Score 24 /56 today 03/12/22: scores 31/56 today 06/05/22: Met, 41/56. NEW GOAL: Fuchs score of 45/56 to demonstrate low falls risk 08/28/22: 38/56, primarily needs support of QC 09/25/22: FUCHS 39/56 LTG Duration 11/01/22 progressing 09/25/22 Progressing Two Impairment Pt exhibits R LE MMT measured between 2-/5 to 3+/5 [facility] Goal (LTG) Pt to improve R LE MMT in all planes to at least 3/5 01/23/22: no significant change noted with MMT today 03/12/22: no significant change noted with MMT today LTG Duration 11/01/22 One Impairment Pt does not participate in an appropriate home exercise program Short Term Goal (STG) Pt to be compliant with an approrpiate HEP 01/23/22: patient indicated not doing exercises at home, though also had quizzical look on face when asked about exercises. Has previously been issued written HEP. 08/28/22: Pt shook head side to side indicating doesn't do his exercises at home. STG Duration 11/01/22 Assessment Summary Assessment Bernabe did well with balance on foam today. He was able to squat and reach cross body to toss a krishnamurthy bag. He showed good effort in all activities. Physical Therapy Plan Frequency and Duration Frequency of Treatment 2x/Week Plan of Care Start Date 09/06/22 Plan of Care End Date 11/01/22 Therapeutic Interventions Therapeutic Interventions Aquatic Therapy,Balance Training,Gait Training,Home Exercise Program,Joint Mobilizations,Manual Therapy, Neuromuscular Re-education, Patient/Caregiver Education, Self-Care/Home Management,Soft Tissue Mobilization, Therapeutic Activities, Therapeutic Exercises Next Visit Focus/Plan Next Note Type Treatment Note
--- NOTE | 2022-10-16 15:15 | PT.OTN ---
Current Diagnoses Ataxic gait (10/16/22) Other abnormalities of gait and mobility (10/16/22) Weakness (10/16/22) Personal history of transient ischemic attack (TIA), and cerebral infarction without residual deficits (10/16/22) History of falling (10/16/22) Physical Therapy Treatment Note PT-OP-A Visit Information Start: 12/21/21 17:31 Freq: Status: Active Protocol: Document 10/16/22 14:34 SP (Rec: 10/16/22 15:52 SP [id number]) Out-Patient Physical Therapy Visit Information Visit Information Visit Type Treatment Note Visit Note PN/ POC due 11/01 on last appt with [facility]. Visit Start Time 14:34 Visit Stop Time 15:15 Total Visit Minutes 41 Visit Number 63 Number of AIRCRAFT STRUCTURAL REPAIR MECHANIC Visits 1 Evaluation Information Evaluation Date 12/21/21 Precautions Precautions expressive aphasia PT-OP-B Current Condition Start: 12/21/21 17:31 Freq: Status: Active Protocol: Document 02/21/22 08:19 SAK (Rec: 02/21/22 08:59 SAK [id number]) Current Condition History of Current Condition Onset Date 2013 Current Complaints Decreased strength, stamina, near falls History of Current Condition Pt is a 66 year old male very well known to this clinic who comes in to skilled PT today with a recent decline in functional mobility, strength, activity tolerance, and balance. Pt had suffered a CVA in 2013, and has been seen multiple times at this clinic since that time to improve balance and activity tolerance . At baseline, pt has fairly significant right hemiparesis and is almost entirely non- verbal. 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 Pt's notes that pt has been experiencing some problems with his lab values, especially a decrease in sodium and iron. also notes that previously, pt would enjoy going out around the town, but now he just prefers to stay home and only moves around from his chair to the bathroom and back. During prior rounds of PT, it has been difficult to convince Sukh to participate in his HEP, however his notes that their son-in-law recently became a AIRCRAFT STRUCTURAL REPAIR MECHANIC, so they are hopeful that he will be able to help direct a more comprehensive HEP. PT-OP-C Subjective Start: 12/21/21 17:31 Freq: Status: Active Protocol: Document 10/16/22 14:34 SP (Rec: 10/16/22 15:52 SP [id number]) OP-PT Subjective Patient Comments Patient Comments Pt nodded head indicating yes when asked if still feeling shaky, commented noted last tx . Asked if improving in shakiness and he shook head side to side indicating no. PT-OP-D Balance Start: 12/21/21 17:31 Freq: Status: Active Protocol: Document 06/05/22 11:15 DCW (Rec: 06/05/22 11:51 DCW [id number]) Balance Tests Fuchs Balance Test Fuchs Balance Test Score 41/56 Fuchs Impairment Rating 20 to 39% Impaired (Score 34- 44) Fuchs Balance Assessment Evaluation Sitting to Standing Ability Independent w/Hands Unsupported Stance Safely- 2 minutes Sitting Unsupported, Feet on Floor Safely- 2 minutes Standing to Sitting Ability Assist, Control w/Hands Transfer Ability Safely, Hand Use Unsupported Stance- Eyes Closed Safely, 10 seconds Unsupported Stance- Eyes Open Independent, 1 minute Reaching Forward Standing Safely, 5 inches Pick- Up Object From Floor Supervision Look Behind Shoulder - Standing Shifts Weight Unilateral Turning 360 Degrees Turns slowly, but safely Unsupported Stance, Alternating Feet on 2 Steps w/Minimum Assist Stair Unsupported Tandem Stance Holds Tandem- 30 seconds Unilateral Leg Stance Lifts Leg/Unable to Hold Total Score Fuchs Total Score (out of 56 points) 41 Fuchs Impairment Rating 20 to 39% Impaired (Score 34- 44) PT-OP-E Functional Tests Start: 12/21/21 17:31 Freq: Status: Active Protocol: Document 09/06/22 13:50 DCW (Rec: 09/06/22 14:33 DCW [id number]) Functional Tests Timed Up and Go (TUG) Score 36.14 /c LBQC Comments 3-Trial average (37.24, 36.75, 34.42) TUG Impairment Rating 100% Impaired (Score 20) PT-OP-G Mobility & Gait Start: 12/21/21 17:31 Freq: Status: Active Protocol: Document 06/05/22 11:15 DCW (Rec: 06/05/22 11:51 DCW [id number]) OP Gait Assessment Gait Gait Assistance Required: Standby Assistance Distance (Feet) 282 Able to Maintain Weight Bearing Status Yes During Gait Assistive Devices Assistive Device Gait Belt,Straight Cane Orthotic/Prosthetic Devices or Brace: Yes Gait Deviations General Gait Pattern Ataxic,Decreased Stride Length ,Decreased Feet Clearance, Flexed Trunk,Lateral Trunk Lean,Step-to Gait Factors Limiting Gait Function Factors Limiting Gait Function Abnormal Tonal Influences, Decreased Activity Tolerance, Decreased Strength,Limited Range of Motion,Poor Balance, Poor Safety Awareness Comments Gait Comments Pt ambulates with a step-to gait pattern, keeps his right arm in a flexed, guarded position, slow meenakshi, left foot internally rotated PT-OP-M Strength Start: 12/21/21 17:31 Freq: Status: Active Protocol: Document 06/05/22 11:15 DCW (Rec: 06/05/22 11:51 DCW [id number]) Hip Strength Hip Manual Muscle Testing Right Flexion (L2) 2+ Poor+ Extension (S1) 3- Fair- Abduction 2- Poor- Adduction 3 Fair External Rotation 2 Poor Internal Rotation 2 Poor Left Flexion (L2) 4+ Good+ Extension (S1) 4+ Good+ Abduction 5 Normal Adduction 4+ Good+ External Rotation 4 Good Internal Rotation 4 Good Knee Strength Knee Manual Muscle Testing Right Flexion (S2) 3- Fair- Extension (L3) 3+ Fair+ Left Flexion (S2) 5 Normal Extension (L3) 5 Normal Ankle/Foot Strength Ankle and Foot Manual Muscle Testing Left Dorsiflexion (L4) 5 Normal Plantarflexion (S1) 5 Normal Right Comments AFO PT-OP-Q Treatments Start: 12/21/21 17:31 Freq: Status: Active Protocol: Document 10/16/22 14:34 SP (Rec: 10/16/22 15:52 SP [id number]) Cardio Equipment Recumbent Elliptical ([employer]) Duration (Minutes) 5 Resistance 5 Seat Position see 9 Other left UE/ ralph LE's: 364 steps Gym Equipment Shuttle Recovery Unilateral Squats Details B Resistance L 50# (1 new band) (x10, 8), R 25# new band(1x15) Shuttle Recovery Platform Stable Reps/Time reported L knee pain with new band use same resistance Bilateral Squats Resistance 75# (1 new band) 2 new bands to challenging. Shuttle Recovery Platform Stable Reps/Time 2x15 Shuttle Balance red clips Details balance fwd/bck/side wt shift, Comments Wide NATE, Stagger stance w/CGA - 10% A cues for inc weight bearing right LE F/B side wt shift very challenging R LE very shaky 5 sec and discontinued (last activity today 10/16) Therapeutic Exercises Sitting Exercises STS Sitting Exercise Name no UE support Resistance 5%A<> CGA Equipment Used from shuttle recovery, blue foam under BLEs Reps/Minutes x5 reps Comments cued hip hinge forward, slow descent Standing Exercises side stepping Side bilateral Resistance RTB at ankles Equipment Used LUE on rail Reps/Minutes 15 ft x1lap Comments more challenging to R, cued tall posture Neuro Re-Education Treatment Balance Activities uneven surface balance Details step ups Equipment blue foam Comments 1. step ups w/ SPC LUE 5 reps lead each LE 2. stationary standing HTs 3. stationary standing clasp hands FF, trunk rotation Next tx: assess EC PT-OP-T Assessment and Plan Start: 12/21/21 17:31 Freq: Status: Active Protocol: Document 10/16/22 14:34 SP (Rec: 10/16/22 15:52 SP [id number]) Physical Therapy Assessment Goals Three Impairment Pt in high falls-risk category Short Term Goal (STG) Pt to improve 6MWT distance by at least 180' to 467' 01/19/22: baseline assessment: 217 ft in 6 min w/ LBQC. 02/09/22: 259 ft in 6 min w/ SBQC 3 pt gait maintaining 70- 72 bpm w/ metronome. 02/13/22: 189 ft in 6min w/qc decrease to 65 bpm metronome with 2 brief stand rests, need to sit in chair end 6MWT, decline head turn ask 30 ft further to bike, nodded yes when asked if dizzy. 03/12/22: Minimal change since eval 06/05/22: Minimal change since eval 08/28/22: 266 ft w/ LBQC, 0.73 ft/sec, decrease .08 ft/sec. 09/25/22: 188ft in 4 mins 6 secs STG Duration 11/01/22 [facility] Goal (LTG) Pt to increase Fuchs score by at least 7 points to 35/56 to demonstrate a decrease in his falls risk 01/23/22: Fuchs Balance Score 24 /56 today 03/12/22: scores 31/56 today 06/05/22: Met, 41/56. NEW GOAL: Fuchs score of 45/56 to demonstrate low falls risk 08/28/22: 38/56, primarily needs support of QC 09/25/22: FUCHS 39/56 LTG Duration 11/01/22 progressing 09/25/22 Progressing Two Impairment Pt exhibits R LE MMT measured between 2-/5 to 3+/5 [facility] Goal (LTG) Pt to improve R LE MMT in all planes to at least 3/5 01/23/22: no significant change noted with MMT today 03/12/22: no significant change noted with MMT today LTG Duration 11/01/22 One Impairment Pt does not participate in an appropriate home exercise program Short Term Goal (STG) Pt to be compliant with an approrpiate HEP 01/23/22: patient indicated not doing exercises at home, though also had quizzical look on face when asked about exercises. Has previously been issued written HEP. 08/28/22: Pt shook head side to side indicating doesn't do his exercises at home. STG Duration 11/01/22 Assessment Summary Assessment Pt improved WB into RLE during uneven foam standing activities without UE support, ableto clasp hands and turn L >R. Physical Therapy Plan Frequency and Duration Frequency of Treatment 2x/Week Plan of Care Start Date 09/06/22 Plan of Care End Date 11/01/22 Therapeutic Interventions Therapeutic Interventions Aquatic Therapy,Balance Training,Gait Training,Home Exercise Program,Joint Mobilizations,Manual Therapy, Neuromuscular Re-education, Patient/Caregiver Education, Self-Care/Home Management,Soft Tissue Mobilization, Therapeutic Activities, Therapeutic Exercises Next Visit Focus/Plan Next Note Type Treatment Note Next Visit Plan Continue Warm up bike, shuttle balance, functional strength and balance challenge, standing on foam activities.
--- NOTE | 2022-10-18 16:51 | PT.OTN ---
Current Diagnoses Ataxic gait (10/18/22) Other abnormalities of gait and mobility (10/18/22) Weakness (10/18/22) Personal history of transient ischemic attack (TIA), and cerebral infarction without residual deficits (10/18/22) History of falling (10/18/22) Physical Therapy Treatment Note PT-OP-A Visit Information Start: 12/21/21 17:31 Freq: Status: Active Protocol: Document 10/18/22 13:37 AW (Rec: 10/18/22 15:17 AW [id number]) Out-Patient Physical Therapy Visit Information Visit Information Visit Type Treatment Note Visit Note PN/ POC due 11/01 on last appt with [facility]. Visit Start Time 14:30 Visit Stop Time 15:15 Total Visit Minutes 45 Visit Number 64 Number of DIRECTOR OF [employer] Visits 0 Evaluation Information Evaluation Date 12/21/21 Precautions Precautions expressive aphasia PT-OP-B Current Condition Start: 12/21/21 17:31 Freq: Status: Active Protocol: Document 02/21/22 08:19 SAK (Rec: 02/21/22 08:59 SAK [id number]) Current Condition History of Current Condition Onset Date 2013 Current Complaints Decreased strength, stamina, near falls History of Current Condition Pt is a 66 year old male very well known to this clinic who comes in to skilled PT today with a recent decline in functional mobility, strength, activity tolerance, and balance. Pt had suffered a CVA in 2013, and has been seen multiple times at this clinic since that time to improve balance and activity tolerance . At baseline, pt has fairly significant right hemiparesis and is almost entirely non- verbal. 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 Pt's notes that pt has been experiencing some problems with his lab values, especially a decrease in sodium and iron. also notes that previously, pt would enjoy going out around the town, but now he just prefers to stay home and only moves around from his chair to the bathroom and back. During prior rounds of PT, it has been difficult to convince Sukh to participate in his HEP, however his notes that their son-in-law recently became a DIRECTOR [employer], so they are hopeful that he will be able to help direct a more comprehensive HEP. PT-OP-C Subjective Start: 12/21/21 17:31 Freq: Status: Active Protocol: Document 10/18/22 13:37 AW (Rec: 10/18/22 16:48 AW [id number]) OP-PT Subjective Patient Comments Patient Comments Pt indicates doing well today PT-OP-D Balance Start: 12/21/21 17:31 Freq: Status: Active Protocol: Document 06/05/22 11:15 DCW (Rec: 06/05/22 11:51 DCW [id number]) Balance Tests Fuchs Balance Test Fuchs Balance Test Score 41/56 Fuchs Impairment Rating 20 to 39% Impaired (Score 34- 44) Fuchs Balance Assessment Evaluation Sitting to Standing Ability Independent w/Hands Unsupported Stance Safely- 2 minutes Sitting Unsupported, Feet on Floor Safely- 2 minutes Standing to Sitting Ability Assist, Control w/Hands Transfer Ability Safely, Hand Use Unsupported Stance- Eyes Closed Safely, 10 seconds Unsupported Stance- Eyes Open Independent, 1 minute Reaching Forward Standing Safely, 5 inches Pick- Up Object From Floor Supervision Look Behind Shoulder - Standing Shifts Weight Unilateral Turning 360 Degrees Turns slowly, but safely Unsupported Stance, Alternating Feet on 2 Steps w/Minimum Assist Stair Unsupported Tandem Stance Holds Tandem- 30 seconds Unilateral Leg Stance Lifts Leg/Unable to Hold Total Score Fuchs Total Score (out of 56 points) 41 Fuchs Impairment Rating 20 to 39% Impaired (Score 34- 44) PT-OP-E Functional Tests Start: 12/21/21 17:31 Freq: Status: Active Protocol: Document 09/06/22 13:50 DCW (Rec: 09/06/22 14:33 DCW [id number]) Functional Tests Timed Up and Go (TUG) Score 36.14 /c LBQC Comments 3-Trial average (37.24, 36.75, 34.42) TUG Impairment Rating 100% Impaired (Score 20) PT-OP-G Mobility & Gait Start: 12/21/21 17:31 Freq: Status: Active Protocol: Document 06/05/22 11:15 DCW (Rec: 06/05/22 11:51 DCW [id number]) OP Gait Assessment Gait Gait Assistance Required: Standby Assistance Distance (Feet) 282 Able to Maintain Weight Bearing Status Yes During Gait Assistive Devices Assistive Device Gait Belt,Straight Cane Orthotic/Prosthetic Devices or Brace: Yes Gait Deviations General Gait Pattern Ataxic,Decreased Stride Length ,Decreased Feet Clearance, Flexed Trunk,Lateral Trunk Lean,Step-to Gait Factors Limiting Gait Function Factors Limiting Gait Function Abnormal Tonal Influences, Decreased Activity Tolerance, Decreased Strength,Limited Range of Motion,Poor Balance, Poor Safety Awareness Comments Gait Comments Pt ambulates with a step-to gait pattern, keeps his right arm in a flexed, guarded position, slow meenakshi, left foot internally rotated PT-OP-M Strength Start: 12/21/21 17:31 Freq: Status: Active Protocol: Document 06/05/22 11:15 DCW (Rec: 06/05/22 11:51 DCW [id number]) Hip Strength Hip Manual Muscle Testing Right Flexion (L2) 2+ Poor+ Extension (S1) 3- Fair- Abduction 2- Poor- Adduction 3 Fair External Rotation 2 Poor Internal Rotation 2 Poor Left Flexion (L2) 4+ Good+ Extension (S1) 4+ Good+ Abduction 5 Normal Adduction 4+ Good+ External Rotation 4 Good Internal Rotation 4 Good Knee Strength Knee Manual Muscle Testing Right Flexion (S2) 3- Fair- Extension (L3) 3+ Fair+ Left Flexion (S2) 5 Normal Extension (L3) 5 Normal Ankle/Foot Strength Ankle and Foot Manual Muscle Testing Left Dorsiflexion (L4) 5 Normal Plantarflexion (S1) 5 Normal Right Comments AFO PT-OP-Q Treatments Start: 12/21/21 17:31 Freq: Status: Active Protocol: Document 10/18/22 13:37 AW (Rec: 10/18/22 15:17 AW [id number]) Cardio Equipment Recumbent Elliptical ([employer]) Duration (Minutes) 5 Resistance 5 Seat Position see 9 Other left UE/ ralph LE's: ~40 rpm Gym Equipment Shuttle Recovery Unilateral Squats Details B Resistance L 50# R 37# Shuttle Recovery Platform Stable Bilateral Squats Resistance 75# Shuttle Recovery Platform Stable Reps/Time 2x15 Therapeutic Exercises Standing Exercises side stepping Side bilateral Resistance RTB at ankles Equipment Used LUE on rail Reps/Minutes 15 ft x1lap Comments more challenging to R, cued tall posture step up/ down Standing Exercise Name fwd, side stepping Side bilateral Resistance 5# leg wt Equipment Used LLE leading 6 step, RLE leading 4 step, handrail assist Reps/Minutes x~10 Comments cues for tall posture, feet fully placed on step. Gait Training Gait Activity Stair Mgt Description ascend forward/descend Device Used handrails Level of Assistance CGA Surface 4 steps, 5# ankle weights Distance/Duration x12 reps Treatment Focus balance, glut and quad strengthening Neuro Re-Education Treatment Balance Activities rocker board Details A/P, M/L Comments cued increase WB into RLE. uneven surface balance Details step ups Equipment blue foam Comments 1. step ups w/ SPC LUE 5 reps lead each LE 2. stationary standing HTs 3. stationary standing clasp hands FF, trunk rotation Next tx: assess EC PT-OP-T Assessment and Plan Start: 12/21/21 17:31 Freq: Status: Active Protocol: Document 10/18/22 13:37 AW (Rec: 10/18/22 15:17 AW [id number]) Physical Therapy Assessment Goals Three Impairment Pt in high falls-risk category Short Term Goal (STG) Pt to improve 6MWT distance by at least 180' to 467' 01/19/22: baseline assessment: 217 ft in 6 min w/ LBQC. 02/09/22: 259 ft in 6 min w/ SBQC 3 pt gait maintaining 70- 72 bpm w/ metronome. 02/13/22: 189 ft in 6min w/qc decrease to 65 bpm metronome with 2 brief stand rests, need to sit in chair end 6MWT, decline head turn ask 30 ft further to bike, nodded yes when asked if dizzy. 03/12/22: Minimal change since eval 06/05/22: Minimal change since eval 08/28/22: 266 ft w/ LBQC, 0.73 ft/sec, decrease .08 ft/sec. 09/25/22: 188ft in 4 mins 6 secs STG Duration 11/01/22 Carpet Loom Fixer Goal (LTG) Pt to increase Fuchs score by at least 7 points to 35/56 to demonstrate a decrease in his falls risk 01/23/22: Fuchs Balance Score 24 /56 today 03/12/22: scores 31/56 today 06/05/22: Met, 41/56. NEW GOAL: Fuchs score of 45/56 to demonstrate low falls risk 08/28/22: 38/56, primarily needs support of QC 09/25/22: FUCHS 39/56 LTG Duration 11/01/22 progressing 09/25/22 Progressing Two Impairment Pt exhibits R LE MMT measured between 2-/5 to 3+/5 Detention Goal (LTG) Pt to improve R LE MMT in all planes to at least 3/5 01/23/22: no significant change noted with MMT today 03/12/22: no significant change noted with MMT today LTG Duration 11/01/22 One Impairment Pt does not participate in an appropriate home exercise program Short Term Goal (STG) Pt to be compliant with an approrpiate HEP 01/23/22: patient indicated not doing exercises at home, though also had quizzical look on face when asked about exercises. Has previously been issued written HEP. 08/28/22: Pt shook head side to side indicating doesn't do his exercises at home. STG Duration 11/01/22 Assessment Summary Assessment Sukh was less shaky today and had good tolerance for all activities. He had good patterning, weight shifting, and stability on stairs with ankle weights. Physical Therapy Plan Frequency and Duration Frequency of Treatment 2x/Week Plan of Care Start Date 09/06/22 Plan of Care End Date 11/01/22 Therapeutic Interventions Therapeutic Interventions Aquatic Therapy,Balance Training,Gait Training,Home Exercise Program,Joint Mobilizations,Manual Therapy, Neuromuscular Re-education, Patient/Caregiver Education, Self-Care/Home Management,Soft Tissue Mobilization, Therapeutic Activities, Therapeutic Exercises Next Visit Focus/Plan Next Note Type Treatment Note Next Visit Plan Continue Warm up bike, shuttle balance, functional strength and balance challenge, standing on foam activities.
--- NOTE | 2022-10-30 15:20 | PT.OTN ---
Current Diagnoses Ataxic gait (10/30/22) Other abnormalities of gait and mobility (10/30/22) Weakness (10/30/22) Personal history of transient ischemic attack (TIA), and cerebral infarction without residual deficits (10/30/22) History of falling (10/30/22) Physical Therapy Treatment Note PT-OP-A Visit Information Start: 12/21/21 17:31 Freq: Status: Active Protocol: Document 10/30/22 14:34 SP (Rec: 10/30/22 15:36 SP [id number]) Out-Patient Physical Therapy Visit Information Visit Information Visit Type Treatment Note Visit Note PN/POC due 11/01 next appt with [facility]. Visit Start Time 14:34 Visit Stop Time 15:20 Total Visit Minutes 46 Visit Number 65 Number of [employer]IDE [employer] Visits 1 Evaluation Information Evaluation Date 12/21/21 Precautions Precautions expressive aphasia PT-OP-B Current Condition Start: 12/21/21 17:31 Freq: Status: Active Protocol: Document 02/21/22 08:19 SAK (Rec: 02/21/22 08:59 SAK [id number]) Current Condition History of Current Condition Onset Date 2013 Current Complaints Decreased strength, stamina, near falls History of Current Condition Pt is a 66 year old male very well known to this clinic who comes in to skilled PT today with a recent decline in functional mobility, strength, activity tolerance, and balance. Pt had suffered a CVA in 2013, and has been seen multiple times at this clinic since that time to improve balance and activity tolerance . At baseline, pt has fairly significant right hemiparesis and is almost entirely non- verbal. 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 Pt's notes that pt has been experiencing some problems with his lab values, especially a decrease in sodium and iron. also notes that previously, pt would enjoy going out around the town, but now he just prefers to stay home and only moves around from his chair to the bathroom and back. During prior rounds of PT, it has been difficult to convince Sukh to participate in his HEP, however his notes that their son-in-law recently became a [employer], so they are hopeful that he will be able to help direct a more comprehensive HEP. PT-OP-C Subjective Start: 12/21/21 17:31 Freq: Status: Active Protocol: Document 10/30/22 14:34 SP (Rec: 10/30/22 15:36 SP [id number]) OP-PT Subjective Patient Comments Patient Comments Pt indicates doing well today PT-OP-D Balance Start: 12/21/21 17:31 Freq: Status: Active Protocol: Document 06/05/22 11:15 DCW (Rec: 06/05/22 11:51 DCW [id number]) Balance Tests Fuchs Balance Test Fuchs Balance Test Score 41/56 Fuchs Impairment Rating 20 to 39% Impaired (Score 34- 44) Fuchs Balance Assessment Evaluation Sitting to Standing Ability Independent w/Hands Unsupported Stance Safely- 2 minutes Sitting Unsupported, Feet on Floor Safely- 2 minutes Standing to Sitting Ability Assist, Control w/Hands Transfer Ability Safely, Hand Use Unsupported Stance- Eyes Closed Safely, 10 seconds Unsupported Stance- Eyes Open Independent, 1 minute Reaching Forward Standing Safely, 5 inches Pick- Up Object From Floor Supervision Look Behind Shoulder - Standing Shifts Weight Unilateral Turning 360 Degrees Turns slowly, but safely Unsupported Stance, Alternating Feet on 2 Steps w/Minimum Assist Stair Unsupported Tandem Stance Holds Tandem- 30 seconds Unilateral Leg Stance Lifts Leg/Unable to Hold Total Score Fuchs Total Score (out of 56 points) 41 Fuchs Impairment Rating 20 to 39% Impaired (Score 34- 44) PT-OP-E Functional Tests Start: 12/21/21 17:31 Freq: Status: Active Protocol: Document 09/06/22 13:50 DCW (Rec: 09/06/22 14:33 DCW [id number]) Functional Tests Timed Up and Go (TUG) Score 36.14 /c LBQC Comments 3-Trial average (37.24, 36.75, 34.42) TUG Impairment Rating 100% Impaired (Score 20) PT-OP-G Mobility & Gait Start: 12/21/21 17:31 Freq: Status: Active Protocol: Document 06/05/22 11:15 DCW (Rec: 06/05/22 11:51 DCW [id number]) OP Gait Assessment Gait Gait Assistance Required: Standby Assistance Distance (Feet) 282 Able to Maintain Weight Bearing Status Yes During Gait Assistive Devices Assistive Device Gait Belt,Straight Cane Orthotic/Prosthetic Devices or Brace: Yes Gait Deviations General Gait Pattern Ataxic,Decreased Stride Length ,Decreased Feet Clearance, Flexed Trunk,Lateral Trunk Lean,Step-to Gait Factors Limiting Gait Function Factors Limiting Gait Function Abnormal Tonal Influences, Decreased Activity Tolerance, Decreased Strength,Limited Range of Motion,Poor Balance, Poor Safety Awareness Comments Gait Comments Pt ambulates with a step-to gait pattern, keeps his right arm in a flexed, guarded position, slow meenakshi, left foot internally rotated PT-OP-M Strength Start: 12/21/21 17:31 Freq: Status: Active Protocol: Document 06/05/22 11:15 DCW (Rec: 06/05/22 11:51 DCW [id number]) Hip Strength Hip Manual Muscle Testing Right Flexion (L2) 2+ Poor+ Extension (S1) 3- Fair- Abduction 2- Poor- Adduction 3 Fair External Rotation 2 Poor Internal Rotation 2 Poor Left Flexion (L2) 4+ Good+ Extension (S1) 4+ Good+ Abduction 5 Normal Adduction 4+ Good+ External Rotation 4 Good Internal Rotation 4 Good Knee Strength Knee Manual Muscle Testing Right Flexion (S2) 3- Fair- Extension (L3) 3+ Fair+ Left Flexion (S2) 5 Normal Extension (L3) 5 Normal Ankle/Foot Strength Ankle and Foot Manual Muscle Testing Left Dorsiflexion (L4) 5 Normal Plantarflexion (S1) 5 Normal Right Comments AFO PT-OP-Q Treatments Start: 12/21/21 17:31 Freq: Status: Active Protocol: Document 10/30/22 14:34 SP (Rec: 10/30/22 15:36 SP [id number]) Cardio Equipment Recumbent Elliptical ([employer]) Duration (Minutes) 5 Resistance 5 Seat Position see 9 Other left UE/ ralph LE's: ~40 rp, 348 steps Gym Equipment Shuttle Recovery Unilateral Squats Details B Resistance L 50# (1 new band) (2x15), R 25# 1 new band (2x15) Shuttle Recovery Platform Stable Reps/Time nods yes challenging, shook head indicating no pain Bilateral Squats Resistance 75# (1 new band) Shuttle Recovery Platform Stable Reps/Time 2x15 Therapeutic Exercises Standing Exercises step up/ down Standing Exercise Name fwd, side stepping Side bilateral Resistance 5# leg wt Equipment Used B each LE leading 6 step, handrail assist Reps/Minutes ~10 reps Comments cues for tall posture, feet fully placed on step. Neuro Re-Education Treatment Balance Activities volley w/ balloon Details Reaching out of NATE: WBOS, NBOS Surface blue foam Equipment near rail PRN LUE contact Reps/Duration 5 min total Comments Required CGA- 15%A, good cross body/OH and recovery with weight shifts. uneven surface Details WBOS, NBOS Surface blue foam Equipment rail on L PRN if needed Reps/Duration 3 min Comments EC (CG-5% A): WBOS 30 sec, sways but self wt shift recovery NBOS 3 sec before LOB 5%A then open eyes use L rail support. PT-OP-T Assessment and Plan Start: 12/21/21 17:31 Freq: Status: Active Protocol: Document 10/30/22 14:34 SP (Rec: 10/30/22 15:36 SP [id number]) Physical Therapy Assessment Goals Three Impairment Pt in high falls-risk category Short Term Goal (STG) Pt to improve 6MWT distance by at least 180' to 467' 01/19/22: baseline assessment: 217 ft in 6 min w/ LBQC. 02/09/22: 259 ft in 6 min w/ SBQC 3 pt gait maintaining 70- 72 bpm w/ metronome. 02/13/22: 189 ft in 6min w/qc decrease to 65 bpm metronome with 2 brief stand rests, need to sit in chair end 6MWT, decline head turn ask 30 ft further to bike, nodded yes when asked if dizzy. 03/12/22: Minimal change since eval 06/05/22: Minimal change since eval 08/28/22: 266 ft w/ LBQC, 0.73 ft/sec, decrease .08 ft/sec. 09/25/22: 188ft in 4 mins 6 secs STG Duration 11/01/22 Fci Goal (LTG) Pt to increase Fuchs score by at least 7 points to 35/56 to demonstrate a decrease in his falls risk 01/23/22: Fuchs Balance Score 24 /56 today 03/12/22: scores 31/56 today 06/05/22: Met, 41/56. NEW GOAL: Fuchs score of 45/56 to demonstrate low falls risk 08/28/22: 38/56, primarily needs support of QC 09/25/22: FUCHS 39/56 LTG Duration 11/01/22 progressing 09/25/22 Progressing Two Impairment Pt exhibits R LE MMT measured between 2-/5 to 3+/5 Webbing Weaver Goal (LTG) Pt to improve R LE MMT in all planes to at least 3/5 01/23/22: no significant change noted with MMT today 03/12/22: no significant change noted with MMT today LTG Duration 11/01/22 One Impairment Pt does not participate in an appropriate home exercise program Short Term Goal (STG) Pt to be compliant with an approrpiate HEP 01/23/22: patient indicated not doing exercises at home, though also had quizzical look on face when asked about exercises. Has previously been issued written HEP. 08/28/22: Pt shook head side to side indicating doesn't do his exercises at home. STG Duration 11/01/22 Assessment Summary Assessment Pt no shakiness this tx, improved self recovery wt shifting into RLE during uneven surface balloon volley, EC unsupported and muscular effort LE strengthening during supported weighted step ups, only 2 seated rest breaks between activities this tx. Physical Therapy Plan Frequency and Duration Frequency of Treatment 2x/Week Plan of Care Start Date 09/06/22 Plan of Care End Date 11/01/22 Therapeutic Interventions Therapeutic Interventions Aquatic Therapy,Balance Training,Gait Training,Home Exercise Program,Joint Mobilizations,Manual Therapy, Neuromuscular Re-education, Patient/Caregiver Education, Self-Care/Home Management,Soft Tissue Mobilization, Therapeutic Activities, Therapeutic Exercises Next Visit Focus/Plan Next Note Type Progress Note Next Visit Plan PT to reassess POC next tx.
--- NOTE | 2022-11-01 15:17 | PT.OTN ---
Current Diagnoses Ataxic gait (11/01/22) Other abnormalities of gait and mobility (11/01/22) Weakness (11/01/22) Personal history of transient ischemic attack (TIA), and cerebral infarction without residual deficits (11/01/22) History of falling (11/01/22) Physical Therapy Treatment Note PT-OP-A Visit Information Start: 12/21/21 17:31 Freq: Status: Active Protocol: Document 11/01/22 14:32 DCW (Rec: 11/01/22 15:17 DCW [id number]) Out-Patient Physical Therapy Visit Information Visit Information Visit Type Discharge Summary Visit Start Time 14:32 Visit Stop Time 15:15 Total Visit Minutes 43 Visit Number 66 Number of PROTOTYPE MODEL MAKER Visits 0 Evaluation Information Evaluation Date 12/21/21 Precautions Precautions expressive aphasia PT-OP-B Current Condition Start: 12/21/21 17:31 Freq: Status: Active Protocol: Document 02/21/22 08:19 SAK (Rec: 02/21/22 08:59 SAK [id number]) Current Condition History of Current Condition Onset Date 2013 Current Complaints Decreased strength, stamina, near falls History of Current Condition Pt is a 66 year old male very well known to this clinic who comes in to skilled PT today with a recent decline in functional mobility, strength, activity tolerance, and balance. Pt had suffered a CVA in 2013, and has been seen multiple times at this clinic since that time to improve balance and activity tolerance . At baseline, pt has fairly significant right hemiparesis and is almost entirely non- verbal. 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 Pt's notes that pt has been experiencing some problems with his lab values, especially a decrease in sodium and iron. also notes that previously, pt would enjoy going out around the town, but now he just prefers to stay home and only moves around from his chair to the bathroom and back. During prior rounds of PT, it has been difficult to convince Sukh to participate in his HEP, however his notes that their son-in-law recently became a PROTOTYPE MODEL MAKER, so they are hopeful that he will be able to help direct a more comprehensive HEP. PT-OP-C Subjective Start: 12/21/21 17:31 Freq: Status: Active Protocol: Document 11/01/22 14:32 DCW (Rec: 11/01/22 15:17 DCW [id number]) OP-PT Subjective Patient Comments Patient Comments Pt indicates doing well today PT-OP-D Balance Start: 12/21/21 17:31 Freq: Status: Active Protocol: Document 06/05/22 11:15 DCW (Rec: 06/05/22 11:51 DCW [id number]) Balance Tests Fuchs Balance Test Fuchs Balance Test Score 41/56 Fuchs Impairment Rating 20 to 39% Impaired (Score 34- 44) Fuchs Balance Assessment Evaluation Sitting to Standing Ability Independent w/Hands Unsupported Stance Safely- 2 minutes Sitting Unsupported, Feet on Floor Safely- 2 minutes Standing to Sitting Ability Assist, Control w/Hands Transfer Ability Safely, Hand Use Unsupported Stance- Eyes Closed Safely, 10 seconds Unsupported Stance- Eyes Open Independent, 1 minute Reaching Forward Standing Safely, 5 inches Pick- Up Object From Floor Supervision Look Behind Shoulder - Standing Shifts Weight Unilateral Turning 360 Degrees Turns slowly, but safely Unsupported Stance, Alternating Feet on 2 Steps w/Minimum Assist Stair Unsupported Tandem Stance Holds Tandem- 30 seconds Unilateral Leg Stance Lifts Leg/Unable to Hold Total Score Fuchs Total Score (out of 56 points) 41 Fuchs Impairment Rating 20 to 39% Impaired (Score 34- 44) PT-OP-E Functional Tests Start: 12/21/21 17:31 Freq: Status: Active Protocol: Document 11/01/22 14:32 DCW (Rec: 11/01/22 14:49 DC [id number]) Functional Tests 6 Minute Walk Test Distance 302 Device Used LBQC Comments 0.84 ft/sec Timed Up and Go (TUG) Score 31.96 /c LBQC Comments 3-Trial average (32.56, 32.22, 31.10) TUG Impairment Rating 100% Impaired (Score 20) PT-OP-G Mobility & Gait Start: 12/21/21 17:31 Freq: Status: Active Protocol: Document 11/01/22 14:32 DCW (Rec: 11/01/22 14:49 [facility] [id number]) OP Gait Assessment Gait Gait Assistance Required: Standby Assistance Distance (Feet) 302 Able to Maintain Weight Bearing Status Yes During Gait Assistive Devices Assistive Device Gait Belt,Straight Cane Orthotic/Prosthetic Devices or Brace: Yes Gait Deviations General Gait Pattern Ataxic,Decreased Stride Length ,Decreased Feet Clearance, Flexed Trunk,Lateral Trunk Lean,Step-to Gait Factors Limiting Gait Function Factors Limiting Gait Function Abnormal Tonal Influences, Decreased Activity Tolerance, Decreased Strength,Limited Range of Motion,Poor Balance, Poor Safety Awareness Comments Gait Comments Pt ambulates with a step-to gait pattern, keeps his right arm in a flexed, guarded position, slow meenakshi, left foot internally rotated PT-OP-M Strength Start: 12/21/21 17:31 Freq: Status: Active Protocol: Document 06/05/22 11:15 DCW (Rec: 06/05/22 11:51 DCW [id number]) Hip Strength Hip Manual Muscle Testing Right Flexion (L2) 2+ Poor+ Extension (S1) 3- Fair- Abduction 2- Poor- Adduction 3 Fair External Rotation 2 Poor Internal Rotation 2 Poor Left Flexion (L2) 4+ Good+ Extension (S1) 4+ Good+ Abduction 5 Normal Adduction 4+ Good+ External Rotation 4 Good Internal Rotation 4 Good Knee Strength Knee Manual Muscle Testing Right Flexion (S2) 3- Fair- Extension (L3) 3+ Fair+ Left Flexion (S2) 5 Normal Extension (L3) 5 Normal Ankle/Foot Strength Ankle and Foot Manual Muscle Testing Left Dorsiflexion (L4) 5 Normal Plantarflexion (S1) 5 Normal Right Comments AFO PT-OP-Q Treatments Start: 12/21/21 17:31 Freq: Status: Active Protocol: Document 11/01/22 14:32 DCW (Rec: 11/01/22 15:17 DCW [id number]) Gym Equipment Shuttle Recovery Unilateral Squats Details B Resistance L 50# (2x15), R 37# (2x15) Shuttle Recovery Platform Stable Bilateral Squats Resistance 75# (1 new band) Shuttle Recovery Platform Stable Reps/Time 2x15 Neuro Re-Education Treatment Balance Activities rocker board Details A/P, M/L Comments cued increase WB into RLE. hurdles Details side-stepping Surface firm Equipment 6 hurdles, // bar PT-OP-T Assessment and Plan Start: 12/21/21 17:31 Freq: Status: Active Protocol: Document 11/01/22 14:32 DCW (Rec: 11/01/22 15:17 DCW [id number]) Physical Therapy Assessment Goals Three Impairment Pt in high falls-risk category Short Term Goal (STG) Pt to improve 6MWT distance by at least 180' to 467' 01/19/22: baseline assessment: 217 ft in 6 min w/ LBQC. 02/09/22: 259 ft in 6 min w/ SBQC 3 pt gait maintaining 70- 72 bpm w/ metronome. 02/13/22: 189 ft in 6min w/qc decrease to 65 bpm metronome with 2 brief stand rests, need to sit in chair end 6MWT, decline head turn ask 30 ft further to bike, nodded yes when asked if dizzy. 03/12/22: Minimal change since eval 06/05/22: Minimal change since eval 08/28/22: 266 ft w/ LBQC, 0.73 ft/sec, decrease .08 ft/sec. 09/25/22: 188ft in 4 mins 6 secs STG Duration Minimal Change Care Home Goal (LTG) Pt to increase Fuchs score by at least 7 points to 35/56 to demonstrate a decrease in his falls risk 01/23/22: Fuchs Balance Score 24 /56 today 03/12/22: scores 31/56 today 06/05/22: Met, 41/56. NEW GOAL: Fuchs score of 45/56 to demonstrate low falls risk 08/28/22: 38/56, primarily needs support of QC 09/25/22: FUCHS 39/56 LTG Duration 11/01/22 progressing 09/25/22 Progressing Two Impairment Pt exhibits R LE MMT measured between 2-/5 to 3+/5 Care Home Goal (LTG) Pt to improve R LE MMT in all planes to at least 3/5 01/23/22: no significant change noted with MMT today 03/12/22: no significant change noted with MMT today LTG Duration 11/01/22 One Impairment Pt does not participate in an appropriate home exercise program Short Term Goal (STG) Pt to be compliant with an approrpiate HEP 01/23/22: patient indicated not doing exercises at home, though also had quizzical look on face when asked about exercises. Has previously been issued written HEP. 08/28/22: Pt shook head side to side indicating doesn't do his exercises at home. STG Duration 11/01/22 Assessment Summary Assessment Testing performed today, pt demonstrates minimal changes overall since last reassessment. Pt has reached progress plateau, unlikely to benefit from further skilled therapeutic intervention. Pt and understand, and were informed that they can return with a new referral if they feel there is a decline in function in the future. Physical Therapy Plan Frequency and Duration Frequency of Treatment 2x/Week Plan of Care Start Date 09/06/22 Plan of Care End Date 11/01/22 Therapeutic Interventions Therapeutic Interventions Aquatic Therapy,Balance Training,Gait Training,Home Exercise Program,Joint Mobilizations,Manual Therapy, Neuromuscular Re-education, Patient/Caregiver Education, Self-Care/Home Management,Soft Tissue Mobilization, Therapeutic Activities, Therapeutic Exercises Discharge Physical Therapy Discharge Reasons Plateau in Progress Next Visit Focus/Plan Next Note Type Discharge Summary
== END 2022-11-06 10:36 | disposition home or self-care (01) ==
LOC: PHYS 14:30
PROVIDERS: PCP Family Medicine; Referring Provider Physician Assistant; Visit Provider Physician Assistant
DX: R53.1 Weakness (principal); R26.89 Other abnormalities of gait and mobility; Z86.73 Personal history of transient ischemic attack (TIA), and cerebral infarction without residual deficits; Z91.81 History of falling; R26.0 Ataxic gait
CPT/HCPCS: 97110; 97112; 97116; 97163; 97530

== ENCOUNTER → 2023-01-17 08:21 | Outpatient (CLI) | payer OTHER, MEDICARE, SELFPAY ==
[2019-09-02 12:00] VITALS: BMI 23.4
[2023-01-17 09:58] LABS: Add Manual Diff / Slide Review NO; Basophils Absolute Auto 0 /uL (0-100); Basophils Percent Auto 0.6 % (0-2); Eosinophils Absolute Auto 200 /uL (0-450); Eosinophils Percent Auto 2.9 % (2-4); Hematocrit 37.8 % (41-53); Hemoglobin 13.1 g/dL (13.5-17.5); Lymphocytes Absolute Auto 1100 /uL (1100-4500); Lymphocytes Percent Auto 19.9 % (25-40); Mean Corpuscular HGB Conc 34.7 % (30-36); Mean Corpuscular Hemoglobin 31.7 PG (26-34); Mean Corpuscular Volume 91.2 fL (80-100); Monocytes Absolute Auto 700 /uL (0-900); Monocytes Percent Auto 12.6 % (3-14); Neutrophils Absolute Auto 3400 /uL (1500-7000); Platelet Count 207 X10^3/uL (150-400); Red Blood Cell Count 4.14 X10^6/uL (4.5-5.9); Red Cell Distribution Width 14.6 % (11.6-14.8); White Blood Cell Count 5.3 X10^3/uL (4.5-11.0)
[2023-01-17 10:01] LABS: Hemoglobin A1C% w Est Avg Glu 6.9 % (4.0-6.0)
[2023-01-17 10:16] LABS: HEMOLYSIS < 15 (0-50)
[2023-01-17 10:22] LABS: Creatinine Urine Random 165.2 mg/dL
[2023-01-17 10:25] LABS: Alanine Aminotransferase 25 IU/L (<50); Albumin 3.9 g/dL (3.5-5.0); Albumin Globulin Ratio 0.9 (1.0-2.8); Alkaline Phosphatase 65 U/L (38-126); Aspartate Aminotransferase 33 IU/L (17-59); BUN Creatinine Ratio 21.8 (6-22); Bilirubin Total 0.5 mg/dL (0.2-1.3); Blood Urea Nitrogen 24 mg/dL (9-20); Calcium 9.1 mg/dL (8.4-10.2); Carbon Dioxide 28 mmol/L (22-32); Chloride 99 mmol/L (98-107); Cholesterol 146 mg/dL (140-199); Estimated Glomerular Filt Rate > 60 mL/min (>60); Globulin 4.2 g/dL (1.7-4.1); Glucose 106 mg/dL (80-110); HDL Cholesterol 44 mg/dL (40-60); LDL Cholesterol Calculated 91 mg/dL (<100); Potassium 4.7 mmol/L (3.4-5.1); Sodium 132 mmol/L (137-145); Total Protein 8.1 g/dL (6.3-8.2); Triglycerides 53 mg/dL (35-150)
[2023-01-17 10:26] LABS: Microalbumi Creatinin Ratio Ur 3.6 ug/mg CR (<30); Microalbumin Urine Random 0.6 mg/dL (0-1.6)
[2023-01-17 10:37] LABS: TSH w/ Reflex to FT4 0.88 uIU/mL (0.47-4.68)
[2023-01-17 11:28] LABS: Folate > 20.0 ng/mL (2.76-20.0); Vitamin B12 805 pg/mL (239-931)
== END ==
PROVIDERS: PCP Family Medicine; Referring Provider Physician Assistant; Visit Provider Physician Assistant
DX: E11.9 Type 2 diabetes mellitus without complications (principal); E78.5 Hyperlipidemia, unspecified; I10 Essential (primary) hypertension; M06.9 Rheumatoid arthritis, unspecified; Z12.5 Encounter for screening for malignant neoplasm of prostate
CPT/HCPCS: 36415; 80053; 80061; 82043; 82570; 82607; 82746; 83036; 84443; 85025; G0103

== ENCOUNTER → 2023-02-04 13:35 | Outpatient (CLI) | payer OTHER, MEDICARE, SELFPAY ==
[2019-09-02 12:00] VITALS: BMI 23.4
--- NOTE | 2023-02-04 | DI.ECHO.S_ITS ---
[place] [facility] +---------+ [facility] +---------+ : : [address] : : : : [id number] : : : : Phone: [phone]+ Echocardiogram Report + + :Name: AMARI RICKS Study Date: 02/04/2023 Height: 68 in : :[facility] ReadingLocation: Weight: 165 lb: : Gender: Male BSA: 1.9 m2 : :: 1955 Age: 67 yrs BP: 99/66 mmHg: :Reason For Study: ISCHEMIC CARDIOMYOPATHY : :Ordering Physician: CARMINA, : :CLAIR Performed By: Lexi Martinez : :Referring: CLAIR SUH : + + Interpretation Summary 1) Mildly enlarged left ventricle with severely reduced function (EF 25-30%). 2) The entire apex, mid to distal septum, and distal inferior wall are akinetic to dyskinetic. 3) Normal right ventricular size and function. Pacemaker lead visualized in the right ventricle. 4) No significant valvular abnormalities. 5) Compared to the Echo done 10/17/2018, LVEF has decreased from 30-35% to 25- 30% on this study. Procedure: A two-dimensional transthoracic echocardiogram with color flow and Doppler was performed. The study quality was technically adequate. Comparison is made with the echocardiogram of 10/17/2018. The patient has a paced rhythm. The heart rate ranged between 61-68 bpm during the study. Left Ventricle: The left ventricle is mildly dilated. The estimated left ventricular end diastolic volume is 170 ml. There is normal left ventricular wall thickness. The ejection fraction is estimated to be 25-30%. The entire apex, mid to distal septum, and distal inferior wall are akinetic to dyskinetic. Right Ventricle: The right ventricle is normal in size and function. There is a pacemaker lead in the right ventricle. Atria: The left atrial size is normal. Right atrial size is normal. There is a catheter/pacemaker lead seen in the right atrium. There is no Doppler evidence for an interatrial shunt. Mitral Valve: The mitral valve leaflets appear borderline thickened, but open well. There is trace mitral regurgitation. Aortic Valve: The aortic valve is trileaflet. The aortic valve opens well. The aortic valve is slightly calcified. There is no aortic valve stenosis. No aortic regurgitation is present. Tricuspid Valve: The tricuspid valve leaflets are thin and pliable. There is mild tricuspid regurgitation. The right ventricular systolic pressure is estimated to be at least 23 mmHg based on an estimated right atrial pressure of 3 mm Hg. Pulmonic Valve: The pulmonic valve leaflets are thin and pliable; valve motion is normal. There is mild pulmonic regurgitation. Great Vessels: The aortic root is normal size. The dimensions of the ascending aorta are normal. The IVC is of normal diameter and collapses greater than 50% with a sniff. This suggests a low right atrial pressure of 3 mm Hg. Pericardium/ Pleura There is no pericardial effusion. There is no pleural effusion. MMode/2D Measurements & Calculations LVIDd: 6.3 cm LVOT diam: 2.0 cm LVIDs: 5.4 cm Ao root diam: 3.7 cm FS: 13.3 % asc Aorta Diam: 3.1 cm EPSS: 1.7 cm Ao Arch Diam (Prox Trans): 3.1 cm IVSd: 0.47 cm LVPWd: 0.55 cm LV baer. diameter/BSA (cm/m^2): 3.3 LV sys. diameter/BSA (cm/m^2): 2.9 LA A2 area: 18.3 cm2 RA long axis: 4.5 cm LA A4 area: 21.8 cm2 RA area: 16.8 cm2 LA length (vol): 5.4 cm RA vol: 52.9 ml LA vol: 62.6 ml RA : 28.1 ml/m2 LA vol index: 33.2 ml/m2 IVC diam: 1.6 cm RVD1 (basal): 3.4 cm RVD2 (mid): 3.0 cm TAPSE: 1.9 cm Doppler Measurements & Calculations Ao V2 max: 125.6 cm/sec LVOT Max Dk: 76.6 cm/sec Ao V2 mean: 89.2 cm/sec LV V1 max P.3 mmHg Ao max P.3 mmHg LV V1 VTI: 15.0 cm Ao mean P.6 mmHg МАРИНА(I,D): 1.7 cm2 Ao V2 VTI: 27.5 cm МАРИНА(V,D): 1.9 cm2 sev ratio: 0.55 МАРИНА indexed to BSA (cm^2/m^2): 0.92 MV E max dk: 35.2 cm/sec TR max dk: 222.8 cm/sec MV A max dk: 73.4 cm/sec TR max P.8 mmHg MV E/A: 0.48 PA V2 max: 100.7 cm/sec Med Peak E' Dk: 2.6 cm/sec PA V2 mean: 70.9 cm/sec E/E' med: 13.4 PA mean P.2 mmHg Lat Peak E' Dk: 4.9 cm/sec E/E' lat: 7.2 E/e' average: 10.3 MV dec time: 0.27 sec SV(LVOT): 47.6 ml Reading Physician:02:07 PM
== END ==
PROVIDERS: PCP Family Medicine; Referring Provider Internal Medicine Cardiovascular Disease; Visit Provider Internal Medicine Cardiovascular Disease
DX: I07.1 Rheumatic tricuspid insufficiency (principal); I37.1 Nonrheumatic pulmonary valve insufficiency; I25.5 Ischemic cardiomyopathy; Z95.0 Presence of cardiac pacemaker
CPT/HCPCS: 93306

== ENCOUNTER → 2023-03-11 14:25 | Outpatient (CLI) | payer OTHER, MEDICARE, SELFPAY ==
[2019-09-02 12:00] VITALS: BMI 23.4
[2023-03-11 15:21] LABS: Add Manual Diff / Slide Review NO; Basophils Absolute Auto 0 /uL (0-100); Basophils Percent Auto 0.6 % (0-2); Eosinophils Absolute Auto 200 /uL (0-450); Eosinophils Percent Auto 2.9 % (2-4); Hematocrit 39.2 % (41-53); Hemoglobin 13.6 g/dL (13.5-17.5); Lymphocytes Absolute Auto 1200 /uL (1100-4500); Lymphocytes Percent Auto 21.7 % (25-40); Mean Corpuscular HGB Conc 34.8 % (30-36); Mean Corpuscular Hemoglobin 31.6 PG (26-34); Mean Corpuscular Volume 90.9 fL (80-100); Monocytes Absolute Auto 700 /uL (0-900); Monocytes Percent Auto 11.9 % (3-14); Neutrophils Absolute Auto 3500 /uL (1500-7000); Neutrophils Percent Auto 62.9 % (50-75); Platelet Count 197 X10^3/uL (150-400); Red Blood Cell Count 4.31 X10^6/uL (4.5-5.9); Red Cell Distribution Width 14.6 % (11.6-14.8); White Blood Cell Count 5.5 X10^3/uL (4.5-11.0)
[2023-03-11 15:44] LABS: Alanine Aminotransferase 27 IU/L (<50); Albumin 3.9 g/dL (3.5-5.0); Albumin Globulin Ratio 0.9 (1.0-2.8); Alkaline Phosphatase 54 U/L (38-126); Aspartate Aminotransferase 31 IU/L (17-59); BUN Creatinine Ratio 13.7 (6-22); Bilirubin Total 0.4 mg/dL (0.2-1.3); Blood Urea Nitrogen 13 mg/dL (9-20); C-Reactive Protein Quant < 0.5 mg/dL (<1.0); Calcium 8.9 mg/dL (8.4-10.2); Carbon Dioxide 28 mmol/L (22-32); Chloride 95 mmol/L (98-107); Estimated Glomerular Filt Rate > 60 mL/min (>60); Globulin 4.5 g/dL (1.7-4.1); Glucose 144 mg/dL (80-110); HEMOLYSIS 17 (0-50); Potassium 4.2 mmol/L (3.4-5.1); Sodium 130 mmol/L (137-145); Total Protein 8.4 g/dL (6.3-8.2)
[2023-03-11 15:51] LABS: Erythrocyte Sedimentation Rate 28 MM/HR (0-15)
[2023-03-12 19:30] LABS: Hepatitis B Surface Antigen NEGATIVE s/c (NEGATIVE)
[2023-03-12 19:46] LABS: Hep C Virus Ab w/Reflex Quant NEGATIVE s/c (NEGATIVE)
[2023-03-13 08:42] LABS: QuantiFERON Mitogen Value >10.00 IU/mL (.); QuantiFERON Nil Value 0.02 IU/mL (.); QuantiFERON TB Gold Plus Negative (Negative); QuantiFERON TB1 Ag Value 0.03 IU/mL (.); QuantiFERON TB2 Ag Value 0.05 IU/mL (.)
[2023-03-13 21:33] LABS: CCP Antibodies IgG/IgA >250 units (0-19)
[2023-03-14 18:42] LABS: ANA Screen, IFA Positive (.); Speckled Pattern >1:1280 (.)
== END ==
PROVIDERS: PCP Family Medicine; Referring Provider Physician Assistant; Visit Provider Physician Assistant
DX: D68.61 Antiphospholipid syndrome (principal); Z79.899 Other long term (current) drug therapy; M06.9 Rheumatoid arthritis, unspecified
CPT/HCPCS: 36415; 80053; 85025; 85651; 86038; 86140; 86200; 86430; 86480; 86803; 87340

== ENCOUNTER → 2023-04-16 13:30 | Outpatient (CLI) | payer OTHER, MEDICARE, SELFPAY ==
[2019-09-02 12:00] VITALS: BMI 23.4
[2023-04-16 14:06] LABS: Add Manual Diff / Slide Review NO; Basophils Absolute Auto 0 /uL (0-100); Basophils Percent Auto 0.8 % (0-2); Eosinophils Absolute Auto 200 /uL (0-450); Eosinophils Percent Auto 3.3 % (2-4); Hematocrit 38.2 % (41-53); Hemoglobin 13.5 g/dL (13.5-17.5); Lymphocytes Absolute Auto 1100 /uL (1100-4500); Lymphocytes Percent Auto 22.8 % (25-40); Mean Corpuscular HGB Conc 35.3 % (30-36); Mean Corpuscular Hemoglobin 32.1 PG (26-34); Mean Corpuscular Volume 90.8 fL (80-100); Monocytes Absolute Auto 700 /uL (0-900); Monocytes Percent Auto 13.3 % (3-14); Neutrophils Absolute Auto 3000 /uL (1500-7000); Neutrophils Percent Auto 59.8 % (50-75); Platelet Count 178 X10^3/uL (150-400); Red Blood Cell Count 4.21 X10^6/uL (4.5-5.9); Red Cell Distribution Width 15.1 % (11.6-14.8)
[2023-04-16 14:19] LABS: Alanine Aminotransferase 29 IU/L (<50); Albumin 4.1 g/dL (3.5-5.0); Albumin Globulin Ratio 0.9 (1.0-2.8); Alkaline Phosphatase 58 U/L (38-126); Aspartate Aminotransferase 33 IU/L (17-59); BUN Creatinine Ratio 16.7 (6-22); Bilirubin Total 0.3 mg/dL (0.2-1.3); Blood Urea Nitrogen 18 mg/dL (9-20); C-Reactive Protein Quant < 0.5 mg/dL (<1.0); Calcium 9.4 mg/dL (8.4-10.2); Carbon Dioxide 28 mmol/L (22-32); Chloride 95 mmol/L (98-107); Estimated Glomerular Filt Rate > 60 mL/min (>60); Globulin 4.4 g/dL (1.7-4.1); Glucose 143 mg/dL (80-110); HEMOLYSIS < 15 (0-50); Potassium 4.2 mmol/L (3.4-5.1); Sodium 132 mmol/L (137-145); Total Protein 8.5 g/dL (6.3-8.2)
[2023-04-16 14:20] LABS: Rheumatoid Factor 99.9 IU/mL (<12.0)
[2023-04-16 14:40] LABS: Erythrocyte Sedimentation Rate 35 MM/HR (0-15)
[2023-04-16 16:09] LABS: Hep C Virus Ab w/Reflex Quant NEGATIVE s/c (NEGATIVE); Hepatitis B Surface Antigen NEGATIVE s/c (NEGATIVE)
[2023-04-18 10:55] LABS: CCP Antibodies IgG/IgA >250 units (0-19); QuantiFERON Mitogen Value >10.00 IU/mL (.); QuantiFERON TB Gold Plus Negative (Negative); QuantiFERON TB1 Ag Value 0.01 IU/mL (.); QuantiFERON TB2 Ag Value 0.02 IU/mL (.)
== END ==
PROVIDERS: Family Provider Family Medicine; PCP Family Medicine; Referring Provider Physician Assistant; Visit Provider Physician Assistant
DX: D68.61 Antiphospholipid syndrome (principal); M06.9 Rheumatoid arthritis, unspecified; Z79.899 Other long term (current) drug therapy
CPT/HCPCS: 36415; 80053; 85025; 85651; 86038; 86140; 86200; 86430; 86480; 86803; 87340

== ENCOUNTER → 2023-04-19 15:38 | Outpatient (CLI) | payer OTHER, MEDICARE, SELFPAY ==
[2019-09-02 12:00] VITALS: BMI 23.4
--- NOTE | 2023-04-25 15:38 | DIAB.INIT ---
Initial Diabetes Education Assessment Name: Sukh Colvin Date: 04/19/23 Time: 4-445p Dx: Type II Diabetes Sukh presents with , Felicity. Felicity does most of the communicating due to [place] health limitations. States they would like to try CGM due to his inability to tell her if he is feeling low. Begins to shake with lows and she checks BG, which confirms hypoglycemia. Treats with high kcal foods per report. Only limitation with CGM starter kit today is that Sukh does not have a phone or tube coremaker. Current DM ed tube coremaker not available. 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 For rx, CGM can be rx'd with tube coremaker so phone is not needed. Self-Monitoring Blood Glucose: Reports BG excursions. May go up to 350-400mg/dl and then less than 100 and then up again. Reports shaky at 60-70mg/dl. Diabetes Medications: 18u glargine in am aspart SSI: usually 1-2 u but up to 4-5u Metformin 1000 BID Pertinent Labs: HgA1c 6.9% 01/2023 Past Medical History: (Last Updated 12/12/21 @ 15:42 by Bernice Lopez PA-C) Acute hyponatremia Antiphospholipid antibody syndrome Aphasia following cerebrovascular disease (01/27/15) CAD (coronary artery disease) Cardiac arrhythmia Cerebrovascular accident (CVA) involving left middle cerebral artery territory (09/01/15) Chronic atrial flutter (09/01/15) Chronic systolic congestive heart failure (09/01/15) Controlled insulin dependent diabetes mellitus Coronary artery disease involving nenana coronary artery of nenana heart without angina pectoris (09/01/15) CVA (cerebral vascular accident) Diabetes mellitus DVT (deep venous thrombosis) Essential hypertension (09/01/15) Facial laceration Hemiparesis affecting dominant side as late effect of cerebrovascular accident (01/27/15) History of stroke with residual deficit Right-sided neurological deficits Hyperglycemia Hyperlipidemia (09/01/15) Hyperlipidemia Myocardial infarction Pacemaker Rheumatoid arthritis Stenosis of left carotid artery (12/22/13) Systolic heart failure Type 2 diabetes mellitus Weakness Intervention: This participant was very receptive. Provided appropriate educational handouts. Discussed the following topics: Completed intake assessment. Discussed barriers to care. Reviewed how to self place Dexcom G6. Reviewed precautions and when to finger stick Provided Dexcom help phone number for placement Discussed apps needed for use and BG report review Reviewed Rule of 15 for lows Created SMART goals for patient self-care and success. Goals: Self place Dexcom G6 starter kit when phone is available Practice Rule o f15 for lows Follow-up: MAXI FOSTER follow-up prn due to this RD going on leave until Nov. Provided support resources in the interim. RD will coordinate with PCP staff for personal CGM. Maria T Little RDN, [facility] Certified Diabetes Care and Microfilm Duplicating Unit Supervisor P: [phone] Thank you for this referral
== END ==
PROVIDERS: Absent Provider Family Medicine; Family Provider Family Medicine; PCP Family Medicine; Referring Provider Family Medicine; Visit Provider Family Medicine
DX: E11.9 Type 2 diabetes mellitus without complications (principal); Z79.84 Long term (current) use of oral hypoglycemic drugs; Z79.4 Long term (current) use of insulin; Z71.3 Dietary counseling and surveillance
CPT/HCPCS: G0108

== ENCOUNTER 2023-05-29 12:15 | Outpatient (RCR) | payer OTHER, MEDICARE, MEDICAID, SELFPAY ==
[2019-09-02 12:00] VITALS: BMI 23.4
--- NOTE | 2021-05-18 13:18 | OT.OP.EVAL ---
Visit Care Team Role Provider Type Delfino Epstein MD Attending Provider Physician Primary Care Provider Referring Provider Specialty: Family Practice Address: [address] [place] [address], [id number] Email: [email or web address] Occupational Therapy Initial Evaluation OT Outpatient Adult Evaluation Start: 05/18/21 12:52 Freq: Status: Active Protocol: Document 05/18/21 12:53 AMS (Rec: 05/18/21 13:18 AMS [id number]) General Information Visit Start Time 09:30 Visit Stop Time 10:15 Total Visit Minutes 45 Plan of Care Dates 05/18/21-08/10/21 Insurance Information [facility]; pre- auth required >18 OT visits; max 80/combo PT Treatment Setting Outpatient Care Referring Physician Delfino Epstein MD Reason for Referral Generalized Weakness Identification Confirmed Yes Identification Confirmed By Felicity Goals Treatment TT ROM. Bimanual activities. Short Term Goals 1. 0-20 degrees active R sh flexion. 2. 0-20 degrees active R sh extension. [place] Sifter Goals 1. Sukh will present with increased attention to the right upper extremity, as well as increased functional incorporation of the right upper extremity; this will be evidenced by active incorporation of the right upper extremity/hand with stabilization of objecs at TT, 3 to 4 times per week based on family report requiring no more than 1-2 verbal cues per occasion. 2. Sukh will be modified independent with execution of home exercise program (upper extremity and functional activities) with support of family utilizing provided written and visual instructions from therapist. Assessment/Plan Treatment Assessment Patient is 65 year-old male referred to outpatient OT by PCP, Delfino Epstein MD, secondary to generalized weakness. PMH: Significant for Antiphospholipid antibody syndrome; Aphasia; CAD; Cardiac Arrhythmia; CVA involving L MCA territory ; Chronic atrial flutter; Chronic systolic CHF; CAD involving [place] coronary artery; DM; DVT; Essential HTN ; Hemiparesis affectiving dominant side 01/27/15; Hyperlipidemia; [place]; Pacemaker; RA; Stenosis of left carotid artery; Systolic heart failure . Patient has been seen here at [facility] outpatient therapy services over the years; he is currently receiving outpatient PT. Patient was d/c in December of 2020. His last fall occurred approx 1-2 months ago on the deck. Patient has R hemishoulder/subluxation sling and R GivMohr Sling; he prefers R randa/subluxation sling; however, he did not come to session w/ sling on. Patient/Family Goals: Address attn R side/R UE; functional incorporation of R UE; strength; motor planning Evaluation Findings: Initial intake paperwork completed by Felicity. QuickDASH UE Outcome Measure Score = 62.5. Avg 7.0# of force w/ R nail cutter dynamometer II strength testing. -40 degrees passive R elbow ext. 40 degrees active elbow flex. 0-5 degrees active R sh extension. 0-20 degrees active R sh flexion. 0-0 degrees active R sh abd. R sided neglect; learned non-use w/ increased reliance on L UE . Decreased activity tolerance . Decreased sitting posture. Sukh has positively responded to outpatient services in the past. Outpatient OT is recommended to address range of motion, positioning of the UE, strength of the UE, as well as attention and active incorporation of the R UE in day-to-day life. Comment 12 weeks Treatment Frequency Once a Week Therapeutic Contents Active Range of Motion, Adaptive Equipment Education, Client Education,Cognitive Skills Development,Functional Activities,Home Exercise Program,Joint Protection, Manual Therapy,Education, Neurodevelopment Treatment, Neuromuscular Re-Education, Self-Care,Splinting, Therapeutic Activities, Therapeutic Exercises,Sensory Re-education Modalities As Needed,As Prescribed Additional Types of Modalities Heat
--- NOTE | 2021-05-25 11:50 | OT.OP.TRT ---
Visit Care Team Role Provider Type Delfino Epstein MD Attending Provider Physician Primary Care Provider Referring Provider Specialty: Family Practice Address: [address] [place] [address], [id number] Email: [email or web address] Occupational Therapy Treatment Note OT Outpatient Treatment Note - Adult Start: 05/18/21 12:52 Freq: Status: Active Protocol: Document 05/25/21 11:43 AMS (Rec: 05/25/21 11:50 AMS [id number]) OT Outpatient Adult Treatment Note Session Time Visit Start Time 10:30 Visit Stop Time 11:15 Total Visit Minutes 45 Visit Information Plan of Care Dates 05/18/21-08/10/21 Insurance Information [facility]; pre- auth required >18 OT visits; max 80/combo PT Setting Treatment Setting Outpatient Care Visit Type Note Type Treatment Note General Information General Information Patient is 65 year-old male referred to outpatient OT by PCP, Delfino Epstein MD, secondary to generalized weakness. PMH: Significant for Antiphospholipid antibody syndrome; Aphasia; CAD; Cardiac Arrhythmia; CVA involving L MCA territory ; Chronic atrial flutter; Chronic systolic CHF; CAD involving [place] coronary artery; DM; DVT; Essential HTN ; Hemiparesis affectiving dominant side 01/27/15; Hyperlipidemia; [place]; Pacemaker; RA; Stenosis of left carotid artery; Systolic heart failure . Patient has been seen here at [facility] outpatient therapy services over the years; he is currently receiving outpatient PT. Patient was d/c in December of 2020. His last fall occurred approx 1-2 months ago on the deck. Patient has R hemishoulder/subluxation sling and R GivMohr Sling; he prefers R randa/subluxation sling; however, he did not come to session w/ sling on. - Subjective Identification Type Name Identification Reconciled With Medical Record Observations Sukh was seen 1:1 for OT treatment session. Requested golfing activity! Patient/Caregiver Compliance with Home Good Exercise Program Comment w/ family support - Objective Objective Measurements Please refer to below for progress towards meeting established OT goals. Short Term Goals 1. 0-20 degrees active R sh flexion. 2. 0-20 degrees active R sh extension. Beer Cooler Goals 1. Sukh will present with increased attention to the right upper extremity, as well as increased functional incorporation of the right upper extremity; this will be evidenced by active incorporation of the right upper extremity/hand with stabilization of objecs at TT, 3 to 4 times per week based on family report requiring no more than 1-2 verbal cues per occasion. 2. Sukh will be modified independent with execution of home exercise program (upper extremity and functional activities) with support of family utilizing provided written and visual instructions from therapist. - Treatment 2 Descriptor Tone Management. 1 Descriptor HEP/POC. Sukh was seen 1:1 for outpatient OT; a family member did not accompany him to the OT treatment session. Exercises 5 Descriptor Sustained grasp. Small ball; 500 gram ball. Hold of 3 to 5 seconds. 1 set of 10 repetitions. 4 Descriptor TT ROM. Towel. Sh flex. Sh ext. Sh abd. Sh hor abd. Sh hor add. 3 Descriptor Bimanual functional activities . - Assessment Assessment of Improvement Sukh arrived wearing shoulder subluxation sling R UE. Decreased cueing required for TT UE ROM exercises w/ focus on R UE execution. Cueing and functional problem solving to support bimanual coordination with other activities required (e.g., golfing, cane balloon volleyball). Impaired posture; decreased engagement of trunk /core musculature and neglect of right side/UE. Continued outpatient OT is recommended to address ROM, strength, functional abilities, attention/awareness, bimanual coordination, and functional problem solving. - Plan Therapy Recommendations Continue with Current Program, Advance per Rehabilitation Protocol
--- NOTE | 2021-06-01 11:55 | OT.OP.TRT ---
Visit Care Team Role Provider Type Delfino Epstein MD Attending Provider Physician Primary Care Provider Referring Provider Specialty: Family Practice Address: [address] [place] [address], [id number] Email: [email or web address] Occupational Therapy Treatment Note OT Outpatient Treatment Note - Adult Start: 05/18/21 12:52 Freq: Status: Active Protocol: Document 06/01/21 11:53 AMS (Rec: 06/01/21 11:55 AMS [id number]) OT Outpatient Adult Treatment Note Session Time Visit Start Time 10:30 Visit Stop Time 11:15 Total Visit Minutes 45 Visit Information Plan of Care Dates 05/18/21-08/10/21 Insurance Information [facility]; pre- auth required >18 OT visits; max 80/combo PT Setting Treatment Setting Outpatient Care Visit Type Note Type Treatment Note General Information General Information Patient is 65 year-old male referred to outpatient OT by PCP, Delfino Epstein MD, secondary to generalized weakness. PMH: Significant for Antiphospholipid antibody syndrome; Aphasia; CAD; Cardiac Arrhythmia; CVA involving L MCA territory ; Chronic atrial flutter; Chronic systolic CHF; CAD involving [place] coronary artery; DM; DVT; Essential HTN ; Hemiparesis affectiving dominant side 01/27/15; Hyperlipidemia; [place]; Pacemaker; RA; Stenosis of left carotid artery; Systolic heart failure . Patient has been seen here at [facility] outpatient therapy services over the years; he is currently receiving outpatient PT. Patient was d/c in December of 2020. His last fall occurred approx 1-2 months ago on the deck. Patient has R hemishoulder/subluxation sling and R GivMohr Sling; he prefers R randa/subluxation sling; however, he did not come to session w/ sling on. - Subjective Identification Type Name Identification Reconciled With Medical Record Observations Sukh was seen 1:1 for OT treatment session. Patient/Caregiver Compliance with Home Good Exercise Program Comment w/ family support - Objective Objective Measurements Please refer to below for progress towards meeting established OT goals. Short Term Goals 1. 0-20 degrees active R sh flexion. 2. 0-20 degrees active R sh extension. Mcc Goals 1. Sukh will present with increased attention to the right upper extremity, as well as increased functional incorporation of the right upper extremity; this will be evidenced by active incorporation of the right upper extremity/hand with stabilization of objecs at TT, 3 to 4 times per week based on family report requiring no more than 1-2 verbal cues per occasion. 2. Sukh will be modified independent with execution of home exercise program (upper extremity and functional activities) with support of family utilizing provided written and visual instructions from therapist. - Treatment 2 Descriptor Tone Management. 1 Descriptor HEP/POC. Sukh was seen 1:1 for outpatient OT; a family member did not accompany him to the OT treatment session. Encouraged active incorporation of R UE in day- to-day life. Exercises 5 Descriptor Sustained grasp. Wooden dowel. #2 TB resistance . 5 second hold. 1 set of 10 repetitions. Horizontal positioning of dowel. Wooden dowel. #2 TB resistance . 5 second hold. 1 set of 10 repetitions. Vertical positioning of dowel. 4 Descriptor TT ROM. Towel. Sh flex. Sh ext. Sh abd. Sh hor abd. Sh hor add. 3 Descriptor Bimanual functional activities . - Assessment Assessment of Improvement Sukh arrived wearing shoulder subluxation sling R UE. Decreased cueing required for TT UE ROM exercises w/ focus on R UE execution. Cueing and functional problem solving to support bimanual coordination with other activities required (e.g., golfing, cane balloon volleyball). Impaired posture; decreased engagement of trunk /core musculature and neglect of right side/UE. Improved active/sustained grasp with wooden dowel TB exercise. Continued outpatient OT is recommended to address ROM, strength, functional abilities , attention/awareness, bimanual coordination, and functional problem solving. - Plan Therapy Recommendations Continue with Current Program, Advance per Rehabilitation Protocol
--- NOTE | 2021-06-06 11:40 | OT.OP.TRT ---
Visit Care Team Role Provider Type Delfino Epstein MD Attending Provider Physician Primary Care Provider Referring Provider Specialty: Family Practice Address: [address] [place] [address], [id number] Email: [email or web address] Occupational Therapy Treatment Note OT Outpatient Treatment Note - Adult Start: 05/18/21 12:52 Freq: Status: Active Protocol: Document 06/06/21 11:38 AMS (Rec: 06/06/21 11:40 AMS [id number]) OT Outpatient Adult Treatment Note Session Time Visit Start Time 10:30 Visit Stop Time 11:15 Total Visit Minutes 45 Visit Information Plan of Care Dates 05/18/21-08/10/21 Insurance Information [facility]; pre- auth required >18 OT visits; max 80/combo PT Setting Treatment Setting Outpatient Care Visit Type Note Type Treatment Note General Information General Information Patient is 65 year-old male referred to outpatient OT by PCP, Delfino Epstein MD, secondary to generalized weakness. PMH: Significant for Antiphospholipid antibody syndrome; Aphasia; CAD; Cardiac Arrhythmia; CVA involving L MCA territory ; Chronic atrial flutter; Chronic systolic CHF; CAD involving [place] coronary artery; DM; DVT; Essential HTN ; Hemiparesis affectiving dominant side 01/27/15; Hyperlipidemia; [place]; Pacemaker; RA; Stenosis of left carotid artery; Systolic heart failure . Patient has been seen here at [facility] outpatient therapy services over the years; he is currently receiving outpatient PT. Patient was d/c in December of 2020. His last fall occurred approx 1-2 months ago on the deck. Patient has R hemishoulder/subluxation sling and R GivMohr Sling; he prefers R randa/subluxation sling; however, he did not come to session w/ sling on. - Subjective Identification Type Name Identification Reconciled With Medical Record Observations Sukh was seen 1:1 for OT treatment session. Patient/Caregiver Compliance with Home Good Exercise Program Comment w/ family support - Objective Objective Measurements Please refer to below for progress towards meeting established OT goals. Short Term Goals 1. 0-20 degrees active R sh flexion. 2. 0-20 degrees active R sh extension. Senior Living Goals 1. Sukh will present with increased attention to the right upper extremity, as well as increased functional incorporation of the right upper extremity; this will be evidenced by active incorporation of the right upper extremity/hand with stabilization of objecs at TT, 3 to 4 times per week based on family report requiring no more than 1-2 verbal cues per occasion. 2. Sukh will be modified independent with execution of home exercise program (upper extremity and functional activities) with support of family utilizing provided written and visual instructions from therapist. - Treatment 2 Descriptor Tone Management. 1 Descriptor HEP/POC. Sukh was seen 1:1 for outpatient OT; a family member did not accompany him to the OT treatment session. Encouraged active incorporation of R UE in day- to-day life. Exercises 5 Descriptor Sustained grasp. Wooden dowel. #2 TB resistance . 5 second hold. 1 set of 10 repetitions. Horizontal positioning of dowel. Wooden dowel. #2 TB resistance . 5 second hold. 1 set of 10 repetitions. Vertical positioning of dowel. 4 Descriptor TT ROM. Towel. Sh flex. Sh ext. Sh abd. Sh hor abd. Sh hor add. 3 Descriptor Bimanual functional activities . - Assessment Assessment of Improvement Sukh arrived not wearing shoulder subluxation sling R UE. Decreased cueing required for TT UE ROM exercises w/ focus on R UE execution. Cueing and functional problem solving to support bimanual coordination with other activities required (e.g., golfing, cane balloon volleyball). Impaired posture; initiated use of yellow balance disk while seated with balloon volleyball and ' basetball' x 10 repetitions. Able to correct loss of balance and return to upright sitting on balance disk. Continued outpatient OT is recommended to address ROM, strength, functional abilities , attention/awareness, bimanual coordination, and functional problem solving. - Plan Therapy Recommendations Continue with Current Program, Advance per Rehabilitation Protocol
--- NOTE | 2021-07-13 15:37 | OT.OP.TRT ---
Visit Care Team Role Provider Type Delfino Epstein MD Attending Provider Physician Primary Care Provider Referring Provider Specialty: Family Practice Address: [address] [place] [address], [id number] Email: [email or web address] Occupational Therapy Treatment Note OT Outpatient Treatment Note - Adult Start: 05/18/21 12:52 Freq: Status: Active Protocol: Document 07/13/21 15:35 AMS (Rec: 07/13/21 15:37 AMS [id number]) OT Outpatient Adult Treatment Note Session Time Visit Start Time 12:30 Visit Stop Time 13:15 Total Visit Minutes 45 Visit Information Plan of Care Dates 05/18/21-08/10/21 Insurance Information [facility]; pre- auth required >18 OT visits; max 80/combo PT Setting Treatment Setting Outpatient Care Visit Type Note Type Treatment Note General Information General Information Patient is 65 year-old male referred to outpatient OT by PCP, Delfino Epstein MD, secondary to generalized weakness. PMH: Significant for Antiphospholipid antibody syndrome; Aphasia; CAD; Cardiac Arrhythmia; CVA involving L MCA territory ; Chronic atrial flutter; Chronic systolic CHF; CAD involving [place] coronary artery; DM; DVT; Essential HTN ; Hemiparesis affectiving dominant side 01/27/15; Hyperlipidemia; [place]; Pacemaker; RA; Stenosis of left carotid artery; Systolic heart failure . Patient has been seen here at [facility] outpatient therapy services over the years; he is currently receiving outpatient PT. Patient was d/c in December of 2020. His last fall occurred approx 1-2 months ago on the deck. Patient has R hemishoulder/subluxation sling and R GivMohr Sling; he prefers R randa/subluxation sling; however, he did not come to session w/ sling on. - Subjective Identification Type Name Identification Reconciled With Medical Record Observations Sukh was seen 1:1 for OT treatment session. Patient/Caregiver Compliance with Home Good Exercise Program Comment w/ family support - Objective Objective Measurements Please refer to below for progress towards meeting established OT goals. Short Term Goals 1. 0-20 degrees active R sh flexion. 2. 0-20 degrees active R sh extension. Retirement Goals 1. Sukh will present with increased attention to the right upper extremity, as well as increased functional incorporation of the right upper extremity; this will be evidenced by active incorporation of the right upper extremity/hand with stabilization of objecs at TT, 3 to 4 times per week based on family report requiring no more than 1-2 verbal cues per occasion. 2. Sukh will be modified independent with execution of home exercise program (upper extremity and functional activities) with support of family utilizing provided written and visual instructions from therapist. - Treatment 2 Descriptor Tone Management. 1 Descriptor HEP/POC. Sukh was seen 1:1 for outpatient OT; a family member did not accompany him to the OT treatment session. Encouraged active incorporation of R UE in day- to-day life. Exercises 5 Descriptor Sustained grasp. Wooden dowel. #2 TB resistance . 5 second hold. 1 set of 10 repetitions. Horizontal positioning of dowel. Wooden dowel. #2 TB resistance . 5 second hold. 1 set of 10 repetitions. Vertical positioning of dowel. 4 Descriptor TT ROM. Towel. Sh flex. Sh ext. Sh abd. Sh hor abd. Sh hor add. 3 Descriptor Bimanual functional activities . - Assessment Assessment of Improvement Sukh arrived not wearing shoulder subluxation sling R UE. Cueing and functional problem solving to support bimanual coordination with activities required (e.g., golfing, cane balloon volleyball). Impaired posture; recommend utilizing balance disk positioned on seat. Increased reliance on L UE with execution of TT exercises ; this may have been d/t gap in treatment sessions. Continued outpatient OT is recommended to address ROM, strength, functional abilities , attention/awareness, bimanual coordination, and functional problem solving. - Plan Therapy Recommendations Continue with Current Program, Advance per Rehabilitation Protocol
--- NOTE | 2021-07-19 11:46 | OT.OP.TRT ---
Visit Care Team Role Provider Type Delfino Epstein MD Attending Provider Physician Primary Care Provider Referring Provider Specialty: Family Practice Address: [address] [place] [address], [id number] Email: [email or web address] Occupational Therapy Treatment Note OT Outpatient Treatment Note - Adult Start: 05/18/21 12:52 Freq: Status: Active Protocol: Document 07/19/21 11:42 AMS (Rec: 07/19/21 11:46 AMS [id number]) OT Outpatient Adult Treatment Note Session Time Visit Start Time 10:30 Visit Stop Time 11:15 Total Visit Minutes 45 Visit Information Plan of Care Dates 05/18/21-08/10/21 Insurance Information [facility]; pre- auth required >18 OT visits; max 80/combo PT Setting Treatment Setting Outpatient Care Visit Type Note Type Treatment Note General Information General Information Patient is 65 year-old male referred to outpatient OT by PCP, Delfino Epstein MD, secondary to generalized weakness. PMH: Significant for Antiphospholipid antibody syndrome; Aphasia; CAD; Cardiac Arrhythmia; CVA involving L MCA territory ; Chronic atrial flutter; Chronic systolic CHF; CAD involving [place] coronary artery; DM; DVT; Essential HTN ; Hemiparesis affectiving dominant side 01/27/15; Hyperlipidemia; [place]; Pacemaker; RA; Stenosis of left carotid artery; Systolic heart failure . Patient has been seen here at [facility] outpatient therapy services over the years; he is currently receiving outpatient PT. Patient was d/c in December of 2020. His last fall occurred approx 1-2 months ago on the deck. Patient has R hemishoulder/subluxation sling and R GivMohr Sling; he prefers R randa/subluxation sling; however, he did not come to session w/ sling on. - Subjective Identification Type Name Identification Reconciled With Medical Record Observations Sukh was seen 1:1 for OT treatment session. Patient/Caregiver Compliance with Home Good Exercise Program Comment w/ family support - Objective Objective Measurements Please refer to below for progress towards meeting established OT goals. Short Term Goals 1. 0-20 degrees active R sh flexion. 2. 0-20 degrees active R sh extension. Care Home Goals 1. Sukh will present with increased attention to the right upper extremity, as well as increased functional incorporation of the right upper extremity; this will be evidenced by active incorporation of the right upper extremity/hand with stabilization of objecs at TT, 3 to 4 times per week based on family report requiring no more than 1-2 verbal cues per occasion. 2. Sukh will be modified independent with execution of home exercise program (upper extremity and functional activities) with support of family utilizing provided written and visual instructions from therapist. - Treatment 2 Descriptor Tone Management. 1 Descriptor HEP/POC. Sukh was seen 1:1 for outpatient OT; a family member did not accompany him to the OT treatment session. Encouraged active incorporation of R UE in day- to-day life. Exercises 6 Descriptor PROM. Positioning out of flexor pattern distally w/ use of ball. 5 Descriptor Sustained grasp. Wooden dowel. #2 TB resistance . 5 second hold. 1 set of 10 repetitions. Horizontal positioning of dowel. Wooden dowel. #2 TB resistance . 5 second hold. 1 set of 10 repetitions. Vertical positioning of dowel. 4 Descriptor TT ROM. Towel. Sh flex. Sh ext. Sh abd. Sh hor abd. Sh hor add. Elbow flex. Elbow ext. 3 Descriptor Bimanual functional activities . - Assessment Assessment of Improvement Sukh arrived not wearing shoulder subluxation sling R UE. Decreased cueing to support bimanual coordination with activities required (e.g. , golfing, cane balloon volleyball) compared to previous treatment session; actively attempted to include right hand w/ golf/batting activities. Continued support required with functional problem solving to support right hand/upper extremity engagement. Impaired posture; recommend utilizing balance disk positioned on seat in the future. Continued outpatient OT is recommended to address ROM, strength, functional abilities, attention/awareness , bimanual coordination, and functional problem solving. - Plan Therapy Recommendations Continue with Current Program, Advance per Rehabilitation Protocol
--- NOTE | 2021-07-28 14:22 | OT.OP.TRT ---
Visit Care Team Role Provider Type Delfino Epstein MD Attending Provider Physician Primary Care Provider Referring Provider Specialty: Family Practice Address: [address] [place] [address], [id number] Email: [email or web address] Occupational Therapy Treatment Note OT Outpatient Treatment Note - Adult Start: 05/18/21 12:52 Freq: Status: Active Protocol: Document 07/28/21 14:20 AMS (Rec: 07/28/21 14:22 AMS [id number]) OT Outpatient Adult Treatment Note Session Time Visit Start Time 12:30 Visit Stop Time 13:15 Total Visit Minutes 45 Visit Information Plan of Care Dates 05/18/21-08/10/21 Insurance Information [facility]; pre- auth required >18 OT visits; max 80/combo PT Setting Treatment Setting Outpatient Care Visit Type Note Type Treatment Note General Information General Information Patient is 65 year-old male referred to outpatient OT by PCP, Delfino Epstein MD, secondary to generalized weakness. PMH: Significant for Antiphospholipid antibody syndrome; Aphasia; CAD; Cardiac Arrhythmia; CVA involving L MCA territory ; Chronic atrial flutter; Chronic systolic CHF; CAD involving [place] coronary artery; DM; DVT; Essential HTN ; Hemiparesis affectiving dominant side 01/27/15; Hyperlipidemia; [place]; Pacemaker; RA; Stenosis of left carotid artery; Systolic heart failure . Patient has been seen here at [facility] outpatient therapy services over the years; he is currently receiving outpatient PT. Patient was d/c in December of 2020. His last fall occurred approx 1-2 months ago on the deck. Patient has R hemishoulder/subluxation sling and R GivMohr Sling; he prefers R randa/subluxation sling; however, he did not come to session w/ sling on. - Subjective Identification Type Name Identification Reconciled With Medical Record Observations Sukh was seen 1:1 for OT treatment session. Patient/Caregiver Compliance with Home Good Exercise Program Comment w/ family support - Objective Objective Measurements Please refer to below for progress towards meeting established OT goals. Short Term Goals 1. 0-20 degrees active R sh flexion. 2. 0-20 degrees active R sh extension. [facility]cf Goals 1. Sukh will present with increased attention to the right upper extremity, as well as increased functional incorporation of the right upper extremity; this will be evidenced by active incorporation of the right upper extremity/hand with stabilization of objecs at TT, 3 to 4 times per week based on family report requiring no more than 1-2 verbal cues per occasion. 2. Sukh will be modified independent with execution of home exercise program (upper extremity and functional activities) with support of family utilizing provided written and visual instructions from therapist. - Treatment 2 Descriptor Tone Management. 1 Descriptor HEP/POC. Sukh was seen 1:1 for outpatient OT; a family member did not accompany him to the OT treatment session. Encouraged active incorporation of R UE in day- to-day life. Exercises 6 Descriptor PROM. Positioning out of flexor pattern distally w/ use of ball. 5 Descriptor Sustained grasp. Wooden dowel. #3 TB resistance . 5 second hold. 1 set of 10 repetitions. Horizontal positioning of dowel. Wooden dowel. #2 TB resistance . 5 second hold. 1 set of 10 repetitions. Vertical positioning of dowel. 4 Descriptor TT ROM. Towel. Sh flex. Sh ext. Sh abd. Sh hor abd. Sh hor add. Elbow flex. Elbow ext. 3 Descriptor Bimanual functional activities . - Assessment Assessment of Improvement Sukh arrived not wearing shoulder subluxation sling R UE. Decreased cueing to support bimanual coordination with activities required (e.g. , golfing, cane balloon volleyball) compared to previous treatment sessions. Was observed to spontaneously place right hand on cane, when seated at TT, and with grasping of golf clubs without initiation cues. Increased tightness into wrist/digit flexion pattern. Use of ball versus ROM based on patient response/tolerance. Continued outpatient OT is recommended to address ROM, strength, functional abilities, attention/awareness, bimanual coordination, and functional problem solving. - Plan Therapy Recommendations Continue with Current Program, Advance per Rehabilitation Protocol
--- NOTE | 2021-08-04 15:50 | OT.OP.TRT ---
Visit Care Team Role Provider Type Delfino Epstein MD Attending Provider Physician Primary Care Provider Referring Provider Specialty: Family Practice Address: [address] [place] [address], [address] Email: [email or web address] Occupational Therapy Treatment Note OT Outpatient Treatment Note - Adult Start: 05/18/21 12:52 Freq: Status: Active Protocol: Document 08/04/21 15:43 AMS (Rec: 08/04/21 15:49 AMS [id number]) OT Outpatient Adult Treatment Note Session Time Visit Start Time 12:30 Visit Stop Time 13:15 Total Visit Minutes 45 Visit Information Plan of Care Dates 05/18/21-08/10/21 Insurance Information [facility]; pre- auth required >18 OT visits; max 80/combo PT Setting Treatment Setting Outpatient Care Visit Type Note Type Treatment Note General Information General Information Patient is 65 year-old male referred to outpatient OT by PCP, Delfino Epstein MD, secondary to generalized weakness. PMH: Significant for Antiphospholipid antibody syndrome; Aphasia; CAD; Cardiac Arrhythmia; CVA involving L MCA territory ; Chronic atrial flutter; Chronic systolic CHF; CAD involving [place] coronary artery; DM; DVT; Essential HTN ; Hemiparesis affectiving dominant side 01/27/15; Hyperlipidemia; [place]; Pacemaker; RA; Stenosis of left carotid artery; Systolic heart failure . Patient has been seen here at [facility] outpatient therapy services over the years; he is currently receiving outpatient PT. Patient was d/c in December of 2020. His last fall occurred approx 1-2 months ago on the deck. Patient has R hemishoulder/subluxation sling and R GivMohr Sling; he prefers R randa/subluxation sling; however, he did not come to session w/ sling on. - Subjective Identification Type Name Identification Reconciled With Medical Record Observations Sukh was accompanied by his son-in-law to OT treatment session who is a [employer] SU[employer] SALESPERSON. Patient/Caregiver Compliance with Home Good Exercise Program Comment w/ family support - Objective Objective Measurements Please refer to below for progress towards meeting established OT goals. Short Term Goals 1. 0-20 degrees active R sh flexion. 2. 0-20 degrees active R sh extension. [employer] Coordinator Goals 1. Sukh will present with increased attention to the right upper extremity, as well as increased functional incorporation of the right upper extremity; this will be evidenced by active incorporation of the right upper extremity/hand with stabilization of objecs at TT, 3 to 4 times per week based on family report requiring no more than 1-2 verbal cues per occasion. 2. Sukh will be modified independent with execution of home exercise program (upper extremity and functional activities) with support of family utilizing provided written and visual instructions from therapist. - Treatment 2 Descriptor Tone Management. 1 Descriptor HEP/POC. Son-in-law was present throughout treatment session; discussed recommendations for home carry -over. Exercises 6 Descriptor PROM. Positioning out of flexor pattern distally w/ use of ball. 5 Descriptor Sustained grasp. Wooden dowel. #3 TB resistance . 5 second hold. 1 set of 10 repetitions. Horizontal positioning of dowel. Wooden dowel. #2 TB resistance . 5 second hold. 1 set of 10 repetitions. Vertical positioning of dowel. 4 Descriptor TT ROM. Towel. Sh flex. Sh ext. Sh abd. Sh hor abd. Sh hor add. Elbow flex. Elbow ext. 3 Descriptor Bimanual functional activities . - Assessment Assessment of Improvement Sukh arrived wearing shoulder subluxation sling R UE. He was accompanied by his son-in-law who will be assisting with carry-over of HEP (with the help of his , Sukh's youngest daughter). Decreased cueing to support bimanual coordination with activities required (e.g., golfing, cane balloon volleyball); observed to attempt to grasp objects with incorporation of the right hand with assist from left hand. Intermittent phys assist was still needed to assist with positioning/repositioning of digits of the right hand with bimanual tasks. Overall, good session given education that was provided to support carry-over of recommendations. Continued outpatient OT is recommended to address ROM, strength, functional abilities , attention/awareness, bimanual coordination, and functional problem solving. - Plan Therapy Recommendations Continue with Current Program, Advance per Rehabilitation Protocol
--- NOTE | 2021-08-09 15:51 | OT.OPPN ---
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 (08/09/21) Weakness (08/09/21) OT Progress Note OT Outpatient Treatment Note - Adult Start: 05/18/21 12:52 Freq: Status: Active Protocol: Document 08/09/21 15:38 AMS (Rec: 08/09/21 15:50 AMS [id number]) OT Outpatient Adult Treatment Note Session Time Visit Start Time 12:30 Visit Stop Time 13:15 Total Visit Minutes 45 Visit Information Plan of Care Dates 08/09/21-10/04/21 Insurance Information [facility]; pre- auth required >18 OT visits; max 80/combo PT Setting Treatment Setting Outpatient Care Visit Type Note Type Treatment Note General Information General Information Patient is 65 year-old male referred to outpatient OT by PCP, Delfino Epstein MD, secondary to generalized weakness. PMH: Significant for Antiphospholipid antibody syndrome; Aphasia; CAD; Cardiac Arrhythmia; CVA involving L MCA territory ; Chronic atrial flutter; Chronic systolic CHF; CAD involving [place] coronary artery; DM; DVT; Essential HTN ; Hemiparesis affectiving dominant side 01/27/15; Hyperlipidemia; [place]; Pacemaker; RA; Stenosis of left carotid artery; Systolic heart failure . Patient has been seen here at [facility] outpatient therapy services over the years; he is currently receiving outpatient PT. Patient was d/c in December of 2020. His last fall occurred approx 1-2 months ago on the deck. Patient has R hemishoulder/subluxation sling and R GivMohr Sling; he prefers R randa/subluxation sling; however, he did not come to session w/ sling on. - Subjective Identification Type Name Identification Reconciled With Medical Record Observations Sukh was accompanied by his son-in-law to OT treatment session who is a SECURITY POLICE. Patient/Caregiver Compliance with Home Good Exercise Program Comment w/ family support - Objective Objective Measurements Please refer to below for progress towards meeting established OT goals. Short Term Goals 1. 0-30 degrees active R sh extension. 08/09/21 = GOAL UPGRADED 2. Sukh will be able to position right hand initially on cane vertical/cane horizontally/golf club without physical assistance (x 3 attempts per session), requiring no more than 1-2 verbal cues from therapist, demonstrating improving functional problem solving, attention, and active incorporation of the right upper extremity/hand. 08/09/21 = 25% met GOALS MET 0-20 degrees active R sh flexion. *MET 08/09/21; 0-45 degrees 0-20 degrees active R sh extension. *MET 08/09/21; 0-25 degrees Mcc Goals 1. Sukh will present with increased attention to the right upper extremity, as well as increased functional incorporation of the right upper extremity; this will be evidenced by active incorporation of the right upper extremity/hand with stabilization of objecs at TT, 3 to 4 times per week based on family report requiring no more than 1-2 verbal cues per occasion. 08/09/21 = 50% met 2. Sukh will be modified independent with execution of home exercise program (upper extremity and functional activities) with support of family utilizing provided written and visual instructions from therapist. 08/09/21 = 50% met - Treatment 2 Descriptor Tone Management. 1 Descriptor HEP/POC. was present throughout treatment session; discussed recommendations for home carry-over. Exercises 6 Descriptor PROM. Positioning out of flexor pattern distally w/ use of ball. 5 Descriptor Sustained grasp. Wooden dowel. #3 TB resistance . 5 second hold. 1 set of 10 repetitions. Horizontal positioning of dowel. Wooden dowel. #2 TB resistance . 5 second hold. 1 set of 10 repetitions. Vertical positioning of dowel. 4 Descriptor TT ROM. Towel. Sh flex. Sh ext. Sh abd. Sh hor abd. Sh hor add. Elbow flex. Elbow ext. 3 Descriptor Bimanual functional activities . - Assessment Assessment of Improvement Sukh was accompanied by his to treatment session. Son -in-law and youngest daughter have been assisting with carry -over of home exercise program since recent relocation to [facility]. Sukh has demonstrated improvements in the areas of active range of motion, attention, and functional problem solving relative to incorporation of the right hand with functional/bimanual tasks over the last certification period. He has met some short term goals relative to active shoulder range of motion. Therapist established new goal with intent to decrease physical assistance required for positioning of the right hand on objects that will support bimanual coordination, attention, and functional problem solving. Continued outpatient OT is recommended to address ROM, strength, functional abilities, attention/awareness, bimanual coordination, and functional problem solving, with goal of incorporating right upper extremity in day-to-day life with engagement in functional and meaningful activities. - Plan Therapy Recommendations Continue with Current Program, Advance per Rehabilitation Protocol Comment 8 weeks Frequency of Treatment Once a Week Therapeutic Contents Active Range of Motion, Adaptive Equipment Education, Client Education,Cognitive Skills Development,Functional Activities,Home Exercise Program,Joint Protection, Manual Therapy,Education, Neurodevelopment Treatment, Neuromuscular Re-Education, Self-Care,Therapeutic Activities,Therapeutic Exercises,Modalities Modalities As Needed,As Prescribed Additional Types of Modalities Heat Please Sign and Return: I have reviewed this Plan of Care and certify that the skilled therapy services above are required to meet the patient?s needs. Physician Signature Date Printed Name and Credentials Clinical Instructor Signature Printed Name and Credentials
--- NOTE | 2021-08-22 15:34 | OT.OP.TRT ---
Visit Care Team Role Provider Type Delfino Epstein MD Attending Provider Physician Primary Care Provider Referring Provider Specialty: Family Practice Address: [address] [place] [address], [id number] Email: [email or web address] Occupational Therapy Treatment Note OT Outpatient Treatment Note - Adult Start: 05/18/21 12:52 Freq: Status: Active Protocol: Document 08/22/21 15:29 AMS (Rec: 08/22/21 15:33 AMS [id number]) OT Outpatient Adult Treatment Note Session Time Visit Start Time 10:30 Visit Stop Time 11:15 Total Visit Minutes 45 Visit Information Plan of Care Dates 08/09/21-10/04/21 Insurance Information [facility]; pre- auth required >18 OT visits; max 80/combo PT Setting Treatment Setting Outpatient Care Visit Type Note Type Treatment Note General Information General Information Patient is 65 year-old male referred to outpatient OT by PCP, Delfino Epstein MD, secondary to generalized weakness. PMH: Significant for Antiphospholipid antibody syndrome; Aphasia; CAD; Cardiac Arrhythmia; CVA involving L MCA territory ; Chronic atrial flutter; Chronic systolic CHF; CAD involving [place] coronary artery; DM; DVT; Essential HTN ; Hemiparesis affectiving dominant side 01/27/15; Hyperlipidemia; [place]; Pacemaker; RA; Stenosis of left carotid artery; Systolic heart failure . Patient has been seen here at [facility] outpatient therapy services over the years; he is currently receiving outpatient PT. Patient was d/c in December of 2020. His last fall occurred approx 1-2 months ago on the deck. Patient has R hemishoulder/subluxation sling and R GivMohr Sling; he prefers R randa/subluxation sling; however, he did not come to session w/ sling on. - Subjective Identification Type Name Identification Reconciled With Medical Record Observations Sukh was seen 1:1 for treatment session. Patient/Caregiver Compliance with Home Good Exercise Program Comment w/ family support - Objective Objective Measurements Please refer to below for progress towards meeting established OT goals. Short Term Goals 1. 0-30 degrees active R sh extension. 08/09/21 = GOAL UPGRADED 2. Sukh will be able to position right hand initially on cane vertical/cane horizontally/golf club without physical assistance (x 3 attempts per session), requiring no more than 1-2 verbal cues from therapist, demonstrating improving functional problem solving, attention, and active incorporation of the right upper extremity/hand. 08/09/21 = 25% met GOALS MET 0-20 degrees active R sh flexion. *MET 08/09/21; 0-45 degrees 0-20 degrees active R sh extension. *MET 08/09/21; 0-25 degrees Kindergarten Teacher Goals 1. Sukh will present with increased attention to the right upper extremity, as well as increased functional incorporation of the right upper extremity; this will be evidenced by active incorporation of the right upper extremity/hand with stabilization of objecs at TT, 3 to 4 times per week based on family report requiring no more than 1-2 verbal cues per occasion. 08/09/21 = 50% met 2. Sukh will be modified independent with execution of home exercise program (upper extremity and functional activities) with support of family utilizing provided written and visual instructions from therapist. 08/09/21 = 50% met - Treatment 2 Descriptor Tone Management. Exercises 6 Descriptor PROM. Positioning out of flexor pattern distally w/ use of ball. 5 Descriptor Sustained grasp. Wooden dowel. #4 TB resistance . 5 second hold. 1 set of 10 repetitions. Horizontal positioning of cane. Wooden dowel. #4 TB resistance . 5 second hold. 1 set of 10 repetitions. Vertical positioning of cane. 4 Descriptor TT ROM. Towel. Sh flex. Sh ext. Sh abd. Sh hor abd. Sh hor add. Elbow flex. Elbow ext. 3 Descriptor Bimanual functional activities . - Assessment Assessment of Improvement Sukh was seen 1:1 for session. (+) seeking of increased rest breaks from upright sitting position compared to previous treatment session. Able to problem solve/position right hand on cane with batting activity; required physical assistance when transitioned to smaller bat w/ positioning of right hand below left hand with additional support for attention to ulnar digits (4th and 5th digits of the hand). Continued outpatient OT is recommended to address ROM, strength, functional abilities , attention/awareness, bimanual coordination, and functional problem solving, with goal of incorporating right upper extremity in day- to-day life with engagement in functional and meaningful activities. - Plan Therapy Recommendations Continue with Current Program, Advance per Rehabilitation Protocol Additional Types of Modalities Heat
--- NOTE | 2021-08-29 14:57 | OT.OP.TRT ---
Visit Care Team Role Provider Type Delfino Epstein MD Attending Provider Physician Primary Care Provider Referring Provider Specialty: Family Practice Address: [address] [place] [address], [id number] Email: [email or web address] Occupational Therapy Treatment Note OT Outpatient Treatment Note - Adult Start: 05/18/21 12:52 Freq: Status: Active Protocol: Document 08/29/21 14:48 AMS (Rec: 08/29/21 14:56 AMS [id number]) OT Outpatient Adult Treatment Note Session Time Visit Start Time 13:35 Visit Stop Time 14:15 Total Visit Minutes 40 Visit Information Plan of Care Dates 08/09/21-10/04/21 Insurance Information [facility]; pre- auth required >18 OT visits; max 80/combo PT Setting Treatment Setting Outpatient Care Visit Type Note Type Treatment Note General Information General Information Patient is 65 year-old male referred to outpatient OT by PCP, Delfino Epstein MD, secondary to generalized weakness. PMH: Significant for Antiphospholipid antibody syndrome; Aphasia; CAD; Cardiac Arrhythmia; CVA involving L MCA territory ; Chronic atrial flutter; Chronic systolic CHF; CAD involving [place] coronary artery; DM; DVT; Essential HTN ; Hemiparesis affectiving dominant side 01/27/15; Hyperlipidemia; [place]; Pacemaker; RA; Stenosis of left carotid artery; Systolic heart failure . Patient has been seen here at [facility] outpatient therapy services over the years; he is currently receiving outpatient PT. Patient was d/c in December of 2020. His last fall occurred approx 1-2 months ago on the deck. Patient has R hemishoulder/subluxation sling and R GivMohr Sling; he prefers R randa/subluxation sling; however, he did not come to session w/ sling on. - Subjective Identification Type Name Identification Reconciled With Medical Record Observations Sukh was accompanied by his youngest daughter, Anali, to treatment session. Anali and her , Elvis, have been primarily overseeing Sukh's execution of exercises in the home (for NECKTIES PAINTER, PT, and OT). Patient/Caregiver Compliance with Home Good Exercise Program Comment w/ family support - Objective Objective Measurements Please refer to below for progress towards meeting established OT goals. Short Term Goals 1. 0-30 degrees active R sh extension. 08/09/21 = GOAL UPGRADED 2. Sukh will be able to position right hand initially on cane vertical/cane horizontally/golf club without physical assistance (x 3 attempts per session), requiring no more than 1-2 verbal cues from therapist, demonstrating improving functional problem solving, attention, and active incorporation of the right upper extremity/hand. 08/09/21 = 25% met GOALS MET 0-20 degrees active R sh flexion. *MET 08/09/21; 0-45 degrees 0-20 degrees active R sh extension. *MET 08/09/21; 0-25 degrees Custodial Goals 1. Sukh will present with increased attention to the right upper extremity, as well as increased functional incorporation of the right upper extremity; this will be evidenced by active incorporation of the right upper extremity/hand with stabilization of objecs at TT, 3 to 4 times per week based on family report requiring no more than 1-2 verbal cues per occasion. 08/09/21 = 50% met 2. Sukh will be modified independent with execution of home exercise program (upper extremity and functional activities) with support of family utilizing provided written and visual instructions from therapist. 08/09/21 = 50% met - Treatment 2 Descriptor Tone Management. Exercises 6 Descriptor PROM. Positioning out of flexor pattern distally w/ use of ball. 5 Descriptor Sustained grasp. Wooden dowel. #4 TB resistance . 5 second hold. 1 set of 10 repetitions. Horizontal positioning of cane. Wooden dowel. #4 TB resistance . 5 second hold. 1 set of 10 repetitions. Vertical positioning of cane. 4 Descriptor TT ROM. Towel. Sh flex. Sh ext. Sh abd. Sh hor abd. Sh hor add. Elbow flex. Elbow ext. 3 Descriptor Bimanual functional activities . - Assessment Assessment of Improvement Sukh was accompanied by his youngest daughter to treatment session. Reviewed recommendations that have been previously been conveyed to Anali's , Elvis, as well as instructed in exercises to engage trunk/core while seated (trunk flexion/ extension, weight shift left < -> right, and trunk rotation). Anali indicated that Sukh had not wanted his right shoulder sling on when getting dressed this morning. Will need to follow-up as indicated given that Sukh has 2 different shoulder sling options available to his in the home to address shoulder subluxation. Sukh benefits from support to ensure carry- over of exercises. He did incorporate right upper extremity/support with trunk exercises when seated without prompting and assisted with positioning of right arm on TT for exercises. He required phys assistance to position right hand on golf club but was able to remove right hand from golf club without physical assistance. Overall, good session. Continued outpatient OT is recommended to address ROM, strength, functional abilities , attention/awareness, bimanual coordination, and functional problem solving, with goal of incorporating right upper extremity in day- to-day life with engagement in functional and meaningful activities. - Plan Therapy Recommendations Continue with Current Program, Advance per Rehabilitation Protocol Additional Types of Modalities Heat
--- NOTE | 2021-09-05 14:50 | OT.OP.TRT ---
Visit Care Team Role Provider Type Delfino Epstein MD Attending Provider Physician Primary Care Provider Referring Provider Specialty: Family Practice Address: [address] [place] [address], [id number] Email: [email or web address] Occupational Therapy Treatment Note OT Outpatient Treatment Note - Adult Start: 05/18/21 12:52 Freq: Status: Active Protocol: Document 09/05/21 14:42 AMS (Rec: 09/05/21 14:49 AMS [id number]) OT Outpatient Adult Treatment Note Session Time Visit Start Time 12:30 Visit Stop Time 13:12 Total Visit Minutes 42 Visit Information Plan of Care Dates 08/09/21-10/04/21 Insurance Information [facility]; pre- auth required >18 OT visits; max 80/combo PT Setting Treatment Setting Outpatient Care Visit Type Note Type Treatment Note General Information General Information Patient is 65 year-old male referred to outpatient OT by PCP, Delfino Epstein MD, secondary to generalized weakness. PMH: Significant for Antiphospholipid antibody syndrome; Aphasia; CAD; Cardiac Arrhythmia; CVA involving L MCA territory ; Chronic atrial flutter; Chronic systolic CHF; CAD involving [place] coronary artery; DM; DVT; Essential HTN ; Hemiparesis affectiving dominant side 01/27/15; Hyperlipidemia; [place]; Pacemaker; RA; Stenosis of left carotid artery; Systolic heart failure . Patient has been seen here at [facility] outpatient therapy services over the years; he is currently receiving outpatient PT. Patient was d/c in December of 2020. His last fall occurred approx 1-2 months ago on the deck. Patient has R hemishoulder/subluxation sling and R GivMohr Sling; he prefers R randa/subluxation sling; however, he did not come to session w/ sling on. - Subjective Identification Type Name Identification Reconciled With Medical Record Observations Sukh was seen 1:1 for OT treatment session. Non-verbal indication re: concern of lack of muscle bicep/triceps of the R UE. 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 Patient/Caregiver Compliance with Home Good Exercise Program Comment w/ family support - Objective Objective Measurements Please refer to below for progress towards meeting established OT goals. Short Term Goals 1. 0-30 degrees active R sh extension. 08/09/21 = GOAL UPGRADED 2. Sukh will be able to position right hand initially on cane vertical/cane horizontally/golf club without physical assistance (x 3 attempts per session), requiring no more than 1-2 verbal cues from therapist, demonstrating improving functional problem solving, attention, and active incorporation of the right upper extremity/hand. 08/09/21 = 25% met GOALS MET 0-20 degrees active R sh flexion. *MET 08/09/21; 0-45 degrees 0-20 degrees active R sh extension. *MET 08/09/21; 0-25 degrees Tiger Machine Operator Goals 1. Sukh will present with increased attention to the right upper extremity, as well as increased functional incorporation of the right upper extremity; this will be evidenced by active incorporation of the right upper extremity/hand with stabilization of objecs at TT, 3 to 4 times per week based on family report requiring no more than 1-2 verbal cues per occasion. 08/09/21 = 50% met 2. Sukh will be modified independent with execution of home exercise program (upper extremity and functional activities) with support of family utilizing provided written and visual instructions from therapist. 08/09/21 = 50% met - Treatment 2 Descriptor Tone Management. Exercises 7 Descriptor Elbow ext. TB #1 (thru available range - blocking). 3x10. Elbow flex. 1# DB (thru available range - blocking and muscle tapping). 3x10. 6 Descriptor PROM. Positioning out of flexor pattern distally w/ use of ball. 5 Descriptor Sustained grasp. Wooden dowel. #4 TB resistance . 5 second hold. 1 set of 10 repetitions. Horizontal positioning of cane. Wooden dowel. #4 TB resistance . 5 second hold. 1 set of 10 repetitions. Vertical positioning of cane. 4 Descriptor TT ROM. Towel. Sh flex. Sh ext. Sh abd. Sh hor abd. Sh hor add. Elbow flex. Elbow ext. 3 Descriptor Bimanual functional activities . - Assessment Assessment of Improvement Non-verbal indication of concern (shaking of head) re: lack of muscle of elbow flex/ elbow extensors. Attempted to re-introduce elbow flex/ext strengthening; limited d/t lack of motor planning abilities (tendency to move UE into flexor randa pattern). Cueing to support incorporation of the right hand w/ golf club use. Physical assistance to support active incorporation of the R UE w/ bimanual tasks. [place] on L UE. Overall, good session. Continued outpatient OT is recommended to address ROM, strength, functional abilities , attention/awareness, bimanual coordination, and functional problem solving, with goal of incorporating right upper extremity in day- to-day life with engagement in functional and meaningful activities. - Plan Therapy Recommendations Continue with Current Program, Advance per Rehabilitation Protocol
--- NOTE | 2021-09-14 12:30 | OT.OP.TRT ---
Visit Care Team Role Provider Type Delfino Epstein MD Attending Provider Physician Primary Care Provider Referring Provider Specialty: Family Practice Address: [address] [place] [address], [id number] Email: [email or web address] Occupational Therapy Treatment Note OT Outpatient Treatment Note - Adult Start: 05/18/21 12:52 Freq: Status: Active Protocol: Document 09/14/21 11:50 AMS (Rec: 09/14/21 12:30 AMS [id number]) OT Outpatient Adult Treatment Note Session Time Visit Start Time 09:30 Visit Stop Time 10:15 Total Visit Minutes 45 Visit Information Plan of Care Dates 08/09/21-10/04/21 Insurance Information [facility]; pre- auth required >18 OT visits; max 80/combo PT Setting Treatment Setting Outpatient Care Visit Type Note Type Treatment Note General Information General Information Patient is 65 year-old male referred to outpatient OT by PCP, Delfino Epstein MD, secondary to generalized weakness. PMH: Significant for Antiphospholipid antibody syndrome; Aphasia; CAD; Cardiac Arrhythmia; CVA involving L MCA territory ; Chronic atrial flutter; Chronic systolic CHF; CAD involving [place] coronary artery; DM; DVT; Essential HTN ; Hemiparesis affectiving dominant side 01/27/15; Hyperlipidemia; [place]; Pacemaker; RA; Stenosis of left carotid artery; Systolic heart failure . Patient has been seen here at [facility] outpatient therapy services over the years; he is currently receiving outpatient PT. Patient was d/c in December of 2020. His last fall occurred approx 1-2 months ago on the deck. Patient has R hemishoulder/subluxation sling and R GivMohr Sling; he prefers R randa/subluxation sling; however, he did not come to session w/ sling on. - Subjective Identification Type Name Identification Reconciled With Medical Record Observations Sukh was accompanied by his , Felicity, to treatment session. Anali and her , Elvis, come to the house and work with one time a week per Felicity. Anali and her , Elvis, have been primarily overseeing Sukh's execution of exercises in the home (for ROOMING HOUSE INSPECTOR, PT, and OT). Patient/Caregiver Compliance with Home Good Exercise Program Comment w/ family support - Objective Objective Measurements Please refer to below for progress towards meeting established OT goals. Short Term Goals 1. 0-30 degrees active R sh extension. 08/09/21 = GOAL UPGRADED 2. Sukh will be able to position right hand initially on cane vertical/cane horizontally/golf club without physical assistance (x 3 attempts per session), requiring no more than 1-2 verbal cues from therapist, demonstrating improving functional problem solving, attention, and active incorporation of the right upper extremity/hand. 08/09/21 = 25% met GOALS MET 0-20 degrees active R sh flexion. *MET 08/09/21; 0-45 degrees 0-20 degrees active R sh extension. *MET 08/09/21; 0-25 degrees Intermediate Goals 1. Sukh will present with increased attention to the right upper extremity, as well as increased functional incorporation of the right upper extremity; this will be evidenced by active incorporation of the right upper extremity/hand with stabilization of objecs at TT, 3 to 4 times per week based on family report requiring no more than 1-2 verbal cues per occasion. 08/09/21 = 50% met 2. Sukh will be modified independent with execution of home exercise program (upper extremity and functional activities) with support of family utilizing provided written and visual instructions from therapist. 08/09/21 = 50% met - Treatment 2 Descriptor Tone Management. Exercises 7 Descriptor Elbow ext. TB #1 (attempt at place and hold with TB and muscle tapping to facilitate). 2x10. Elbow flex. TB #1 (attempt at place and hold with TB and muscle tapping to facilitate). 2x10. 6 Descriptor PROM. Positioning out of flexor pattern distally w/ use of ball. 5 Descriptor Sustained grasp. Wooden dowel. #4 TB resistance . 5 second hold. 1 set of 10 repetitions. Horizontal positioning of cane. Wooden dowel. #4 TB resistance . 5 second hold. 1 set of 10 repetitions. Vertical positioning of cane. 4 Descriptor TT ROM. Towel. Sh flex. Sh ext. Sh abd. Sh hor abd. Sh hor add. Elbow flex. Elbow ext. 3 Descriptor Bimanual functional activities . - Assessment Assessment of Improvement Worked on place and hold with resistance with blocking by therapist to address elbow flex/elbow ext muscle. Cueing to support incorporation of the right hand with cane ball exercise with ankle weight #1. 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 This suggests improving functional problem solving/ awareness. Physical assistance to support active incorporation of the R UE w/ bimanual tasks. Overall, good session. Continued outpatient OT is recommended to address ROM, strength, functional abilities , attention/awareness, bimanual coordination, and functional problem solving, with goal of incorporating right upper extremity in day- to-day life with engagement in functional and meaningful activities. - Plan Therapy Recommendations Continue with Current Program, Advance per Rehabilitation Protocol
--- NOTE | 2021-09-26 11:28 | OT.OP.TRT ---
Visit Care Team Role Provider Type Delfino Epstein MD Attending Provider Physician Primary Care Provider Referring Provider Specialty: Family Practice Address: [address] [place] [address], [id number] Email: [email or web address] Occupational Therapy Treatment Note OT Outpatient Treatment Note - Adult Start: 05/18/21 12:52 Freq: Status: Active Protocol: Document 09/26/21 11:21 AMS (Rec: 09/26/21 11:28 AMS [id number]) OT Outpatient Adult Treatment Note Session Time Visit Start Time 10:30 Visit Stop Time 11:13 Total Visit Minutes 43 Visit Information Plan of Care Dates 08/09/21-10/04/21 Insurance Information [facility]; pre- auth required >18 OT visits; max 80/combo PT Setting Treatment Setting Outpatient Care Visit Type Note Type Treatment Note General Information General Information Patient is 65 year-old male referred to outpatient OT by PCP, Delfino Epstein MD, secondary to generalized weakness. PMH: Significant for Antiphospholipid antibody syndrome; Aphasia; CAD; Cardiac Arrhythmia; CVA involving L MCA territory ; Chronic atrial flutter; Chronic systolic CHF; CAD involving [place] coronary artery; DM; DVT; Essential HTN ; Hemiparesis affectiving dominant side 01/27/15; Hyperlipidemia; [place]; Pacemaker; RA; Stenosis of left carotid artery; Systolic heart failure . Patient has been seen here at [facility] outpatient therapy services over the years; he is currently receiving outpatient PT. Patient was d/c in December of 2020. His last fall occurred approx 1-2 months ago on the deck. Patient has R hemishoulder/subluxation sling and R GivMohr Sling; he prefers R randa/subluxation sling; however, he did not come to session w/ sling on. - Subjective Identification Type Name Identification Reconciled With Medical Record Observations Sukh was seen 1:1 for treatment session. 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 Patient/Caregiver Compliance with Home Good Exercise Program Comment w/ family and caregiver support - Objective Objective Measurements Please refer to below for progress towards meeting established OT goals. Short Term Goals 1. 0-30 degrees active R sh extension. 08/09/21 = GOAL UPGRADED 2. Sukh will be able to position right hand initially on cane vertical/cane horizontally/golf club without physical assistance (x 3 attempts per session), requiring no more than 1-2 verbal cues from therapist, demonstrating improving functional problem solving, attention, and active incorporation of the right upper extremity/hand. 08/09/21 = 25% met GOALS MET 0-20 degrees active R sh flexion. *MET 08/09/21; 0-45 degrees 0-20 degrees active R sh extension. *MET 08/09/21; 0-25 degrees Snf Goals 1. Sukh will present with increased attention to the right upper extremity, as well as increased functional incorporation of the right upper extremity; this will be evidenced by active incorporation of the right upper extremity/hand with stabilization of objecs at TT, 3 to 4 times per week based on family report requiring no more than 1-2 verbal cues per occasion. 08/09/21 = 50% met 2. Sukh will be modified independent with execution of home exercise program (upper extremity and functional activities) with support of family utilizing provided written and visual instructions from therapist. 08/09/21 = 50% met - Treatment 2 Descriptor Tone Management. Exercises 7 Descriptor Elbow ext. TB #1 (attempt at place and hold with TB and muscle tapping to facilitate). 2x10. Elbow flex. TB #1 (attempt at place and hold with TB and muscle tapping to facilitate). 2x10. 6 Descriptor PROM. Positioning out of flexor pattern distally w/ use of ball. 5 Descriptor Sustained grasp. Wooden dowel. #4 TB resistance . 5 second hold. 1 set of 10 repetitions. Horizontal positioning of cane. Wooden dowel. #4 TB resistance . 5 second hold. 1 set of 10 repetitions. Vertical positioning of cane. 4 Descriptor TT ROM. Towel. Sh flex. Sh ext. Sh abd. Sh hor abd. Sh hor add. Elbow flex. Elbow ext. 3 Descriptor Bimanual functional activities . - Assessment Assessment of Improvement Worked on place and hold with resistance with blocking by therapist to address elbow flex/elbow ext muscle. Initiation cue to support incorporation of the right hand with cane ball exercise with ankle weight #1 and with use of small bag. Required min phys assist to facilitate grasping of golf club - attempt at completing on own - however, unsuccessful x 3 trials and sought assistance via non-verbal cues; able to remove right hand from cane, golf club, thin bat without physical assistance. Increasing attention to ulnar side of hand with right hand grasp relative to grasping of wand and small bat. Overall, good session. Continued outpatient OT is recommended to address ROM, strength, functional abilities , attention/awareness, bimanual coordination, and functional problem solving, with goal of incorporating right upper extremity in day- to-day life with engagement in functional and meaningful activities. - Plan Therapy Recommendations Continue with Current Program, Advance per Rehabilitation Protocol
--- NOTE | 2021-10-04 15:30 | OT.OPPN ---
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 (10/04/21) Weakness (10/04/21) OT Progress Note OT Outpatient Treatment Note - Adult Start: 05/18/21 12:52 Freq: Status: Active Protocol: Document 10/04/21 15:30 AMS (Rec: 10/05/21 09:34 AMS [id number]) OT Outpatient Adult Treatment Note Session Time Visit Start Time 12:30 Visit Stop Time 13:13 Total Visit Minutes 43 Visit Information Plan of Care Dates 10/04/21-11/29/20 Insurance Information [facility]; pre- auth required >18 OT visits; max 80/combo PT Setting Treatment Setting Outpatient Care Visit Type Note Type Progress Note General Information General Information Patient is 65 year-old male referred to outpatient OT by PCP, Delfino Epstein MD, secondary to generalized weakness. PMH: Significant for Antiphospholipid antibody syndrome; Aphasia; CAD; Cardiac Arrhythmia; CVA involving L MCA territory ; Chronic atrial flutter; Chronic systolic CHF; CAD involving [place] coronary artery; DM; DVT; Essential HTN ; Hemiparesis affectiving dominant side 01/27/15; Hyperlipidemia; [place]; Pacemaker; RA; Stenosis of left carotid artery; Systolic heart failure . Patient has been seen here at [facility] outpatient therapy services over the years; he is currently receiving outpatient PT. Patient was d/c in December of 2020. His last fall occurred approx 1-2 months ago on the deck. Patient has R hemishoulder/subluxation sling and R GivMohr Sling; he prefers R randa/subluxation sling; however, he did not come to session w/ sling on. - Subjective Identification Type Name Identification Reconciled With Medical Record Observations Sukh was seen 1:1 for treatment session. 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 Patient/Caregiver Compliance with Home Good Exercise Program Comment w/ family and caregiver support - Objective Objective Measurements Please refer to below for progress towards meeting established OT goals. Short Term Goals 1. 0-30 degrees active R sh extension. 10/04/21 = 25% met 2. Sukh will be able to position right hand initially on cane vertical/cane horizontally/golf club without physical assistance (x 3 attempts per session), requiring no more than 1-2 verbal cues from therapist, demonstrating improving functional problem solving, attention, and active incorporation of the right upper extremity/hand. 10/04/21 = 75% met GOALS MET 0-20 degrees active R sh flexion. *MET 08/09/21; 0-45 degrees 0-20 degrees active R sh extension. *MET 08/09/21; 0-25 degrees Purse Seining Hand Goals 1. Sukh will present with increased attention to the right upper extremity, as well as increased functional incorporation of the right upper extremity; this will be evidenced by active incorporation of the right upper extremity/hand with stabilization of objecs at TT, 3 to 4 times per week based on family report requiring no more than 1-2 verbal cues per occasion. 10/04/21 = 50% met 2. Sukh will be modified independent with execution of home exercise program (upper extremity and functional activities) with support of family utilizing provided written and visual instructions from therapist. 10/04/21 = 50% met - Treatment 2 Descriptor Tone Management. Exercises 7 Descriptor Elbow ext. TB #1 (attempt at place and hold with TB and muscle tapping to facilitate). 2x10. Elbow flex. TB #1 (attempt at place and hold with TB and muscle tapping to facilitate). 2x10. Seated row - sh ext w/ TT assist. TB #1. Handling to support motor planning/ execution. 2x10. 6 Descriptor PROM. Positioning out of flexor pattern distally w/ use of ball. 5 Descriptor Sustained grasp. Wooden dowel. #4 TB resistance . 5 second hold. 1 set of 10 repetitions. Horizontal positioning of cane. Wooden dowel. #4 TB resistance . 5 second hold. 1 set of 10 repetitions. Vertical positioning of cane. 4 Descriptor TT ROM. Towel. Sh flex. Sh ext. Sh abd. Sh hor abd. Sh hor add. Elbow flex. Elbow ext. 3 Descriptor Bimanual functional activities . - Assessment Assessment of Improvement Over the last certification period, Sukh is demonstrating improving functional problem solving, attention, and active incorporation of the right upper extremity/hand with familiar tasks. He is requiring less verbal cueing and is demonstrating increasing awareness of ulnar side of digits/hand with grasping of cane, small bat, and golf club. Therapist did introduced unfamiliar task in today's treatment session in which Sukh was asked to grasp/manage strap of 'mitt' with the right hand; Sukh required [id number] assist to grasp the strap suggesting that Sukh would likely benefit from being exposed to other/additional activities that support incorporation of the right hand. Continued outpatient OT is recommended to address ROM, strength, functional abilities, attention/awareness, bimanual coordination, and functional problem solving, with goal of incorporating right upper extremity in day-to-day life with engagement in functional and meaningful activities. Home Exercise Program No additional changes were made to HEP on this date. - Plan Comment 8 weeks Frequency of Treatment Once a Week Therapeutic Contents Active Range of Motion, Adaptive Equipment Education, Client Education,Cognitive Skills Development,Functional Activities,Home Exercise Program,Joint Protection, Manual Therapy,Education, Neurodevelopment Treatment, Neuromuscular Re-Education, Self-Care,Stretching/ Flexibility Activities, Therapeutic Activities, Therapeutic Exercises, Modalities,Sensory Re- education Modalities As Needed,As Prescribed Please Sign and Return: I have reviewed this Plan of Care and certify that the skilled therapy services above are required to meet the patient?s needs. Physician Signature Date Printed Name and Credentials Clinical Instructor Signature Printed Name and Credentials
--- NOTE | 2021-10-10 15:52 | OT.OP.TRT ---
Visit Care Team Role Provider Type Delfino Epstein MD Attending Provider Physician Primary Care Provider Referring Provider Specialty: Family Practice Address: [address] [place] [address], [id number] Email: [email or web address] Occupational Therapy Treatment Note OT Outpatient Treatment Note - Adult Start: 05/18/21 12:52 Freq: Status: Active Protocol: Document 10/10/21 15:48 AMS (Rec: 10/10/21 15:52 AMS [id number]) OT Outpatient Adult Treatment Note Session Time Visit Start Time 13:30 Visit Stop Time 14:13 Total Visit Minutes 43 Visit Information Plan of Care Dates 10/04/21 - 11/29/20 Insurance Information [facility]; pre- auth required >18 OT visits; max 80/combo PT Setting Treatment Setting Outpatient Care Visit Type Note Type Treatment Note General Information General Information Patient is 65 year-old male referred to outpatient OT by PCP, Delfino Epstein MD, secondary to generalized weakness. PMH: Significant for Antiphospholipid antibody syndrome; Aphasia; CAD; Cardiac Arrhythmia; CVA involving L MCA territory ; Chronic atrial flutter; Chronic systolic CHF; CAD involving [place] coronary artery; DM; DVT; Essential HTN ; Hemiparesis affectiving dominant side 01/27/15; Hyperlipidemia; [place]; Pacemaker; RA; Stenosis of left carotid artery; Systolic heart failure . Patient has been seen here at [facility] outpatient therapy services over the years; he is currently receiving outpatient PT. Patient was d/c in December of 2020. His last fall occurred approx 1-2 months ago on the deck. Patient has R hemishoulder/subluxation sling and R GivMohr Sling; he prefers R randa/subluxation sling; however, he did not come to session w/ sling on. - Subjective Identification Type Name Identification Reconciled With Medical Record Observations Sukh was seen 1:1 for treatment session. 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 Patient/Caregiver Compliance with Home Good Exercise Program Comment w/ family and caregiver support - Objective Objective Measurements Please refer to below for progress towards meeting established OT goals. Short Term Goals 1. 0-30 degrees active R sh extension. 10/04/21 = 25% met 2. Sukh will be able to position right hand initially on cane vertical/cane horizontally/golf club without physical assistance (x 3 attempts per session), requiring no more than 1-2 verbal cues from therapist, demonstrating improving functional problem solving, attention, and active incorporation of the right upper extremity/hand. 10/10/21 = 75% met GOALS MET 0-20 degrees active R sh flexion. *MET 08/09/21; 0-45 degrees 0-20 degrees active R sh extension. *MET 08/09/21; 0-25 degrees Top Dyeing Machine Tender Goals 1. Sukh will present with increased attention to the right upper extremity, as well as increased functional incorporation of the right upper extremity; this will be evidenced by active incorporation of the right upper extremity/hand with stabilization of objecs at TT, 3 to 4 times per week based on family report requiring no more than 1-2 verbal cues per occasion. 10/04/21 = 50% met 2. Sukh will be modified independent with execution of home exercise program (upper extremity and functional activities) with support of family utilizing provided written and visual instructions from therapist. 10/04/21 = 50% met - Treatment 2 Descriptor Tone Management. Exercises 7 Descriptor Elbow ext. TB #2 (attempt at place and hold with TB and muscle tapping to facilitate). 2x10. Seated row - sh ext w/ TT assist. TB #1. Handling to support motor planning/ execution. 2x10. 6 Descriptor PROM. Positioning out of flexor pattern distally w/ use of ball. 5 Descriptor Sustained grasp. Wooden dowel. #4 TB resistance . 5 second hold. 1 set of 10 repetitions. Horizontal positioning of cane. Wooden dowel. #4 TB resistance . 5 second hold. 1 set of 10 repetitions. Vertical positioning of cane. 4 Descriptor TT ROM. Towel. Sh flex. Sh ext. Sh abd. Sh hor abd. Sh hor add. Elbow flex. Elbow ext. 3 Descriptor Bimanual functional activities . - Assessment Assessment of Improvement Sukh was seen 1:1 for treatment session. Min phys assist and min verbal cues to support initiation of right grasp and to ensure ulnar sided digits of the right hand were positioned on object(s). Decreased functional problem solving with active incorporation of the right hand compared to previous treatment sessions. Use of suspended ball as an alternative approach to batting (pinata); min verbal cues to support engagement in/ approach to participation. Sukh would likely benefit from being exposed to other/ additional activities that support incorporation of the right hand. Overall, fair session Continued outpatient OT is recommended to address ROM, strength, functional abilities , attention/awareness, bimanual coordination, and functional problem solving, with goal of incorporating right upper extremity in day- to-day life with engagement in functional and meaningful activities. Home Exercise Program No additional changes were made to HEP on this date. - Plan Therapy Recommendations Continue with Current Program, Advance per Rehabilitation Protocol
--- NOTE | 2021-10-17 15:35 | OT.OP.TRT ---
Visit Care Team Role Provider Type Delfino Epstein MD Attending Provider Physician Primary Care Provider Referring Provider Specialty: Family Practice Address: [address] [place] [address], [id number] Email: [email or web address] Occupational Therapy Treatment Note OT Outpatient Treatment Note - Adult Start: 05/18/21 12:52 Freq: Status: Active Protocol: Document 10/17/21 15:29 AMS (Rec: 10/17/21 15:34 AMS [id number]) OT Outpatient Adult Treatment Note Session Time Visit Start Time 13:30 Visit Stop Time 14:15 Total Visit Minutes 45 Visit Information Plan of Care Dates 10/04/21 - 11/29/20 Insurance Information [facility]; pre- auth required >18 OT visits; max 80/combo PT Setting Treatment Setting Outpatient Care Visit Type Note Type Treatment Note General Information General Information Patient is 65 year-old male referred to outpatient OT by PCP, Delfino Epstein MD, secondary to generalized weakness. PMH: Significant for Antiphospholipid antibody syndrome; Aphasia; CAD; Cardiac Arrhythmia; CVA involving L MCA territory ; Chronic atrial flutter; Chronic systolic CHF; CAD involving [place] coronary artery; DM; DVT; Essential HTN ; Hemiparesis affectiving dominant side 01/27/15; Hyperlipidemia; [place]; Pacemaker; RA; Stenosis of left carotid artery; Systolic heart failure . Patient has been seen here at [facility] outpatient therapy services over the years; he is currently receiving outpatient PT. Patient was d/c in December of 2020. His last fall occurred approx 1-2 months ago on the deck. Patient has R hemishoulder/subluxation sling and R GivMohr Sling; he prefers R randa/subluxation sling; however, he did not come to session w/ sling on. - Subjective Identification Type Name Identification Reconciled With Medical Record Observations Sukh was seen 1:1 for treatment session. 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 Patient/Caregiver Compliance with Home Good Exercise Program Comment w/ family and caregiver support - Objective Objective Measurements Please refer to below for progress towards meeting established OT goals. Short Term Goals 1. 0-30 degrees active R sh extension. 10/04/21 = 25% met 2. Sukh will be able to position right hand initially on cane vertical/cane horizontally/golf club without physical assistance (x 3 attempts per session), requiring no more than 1-2 verbal cues from therapist, demonstrating improving functional problem solving, attention, and active incorporation of the right upper extremity/hand. 10/17/21 = 75% met GOALS MET 0-20 degrees active R sh flexion. *MET 08/09/21; 0-45 degrees 0-20 degrees active R sh extension. *MET 08/09/21; 0-25 degrees Long-Term Goals 1. Sukh will present with increased attention to the right upper extremity, as well as increased functional incorporation of the right upper extremity; this will be evidenced by active incorporation of the right upper extremity/hand with stabilization of objecs at TT, 3 to 4 times per week based on family report requiring no more than 1-2 verbal cues per occasion. 10/04/21 = 50% met 2. Sukh will be modified independent with execution of home exercise program (upper extremity and functional activities) with support of family utilizing provided written and visual instructions from therapist. 10/04/21 = 50% met - Treatment 2 Descriptor Tone Management. Exercises 7 Descriptor Elbow ext. TB #2 (attempt at place and hold with TB and muscle tapping to facilitate). 1x10. Seated row - sh ext w/ TT assist. TB #1. Handling to support motor planning/ execution. 1x10. 6 Descriptor PROM. Positioning out of flexor pattern distally w/ use of ball. 5 Descriptor Sustained grasp. Wooden dowel. #4 TB resistance . 5 second hold. 1 set of 10 repetitions. Horizontal positioning of cane. Wooden dowel. #4 TB resistance . 5 second hold. 1 set of 10 repetitions. Vertical positioning of cane. 2# velcro ankle weight to cane . 1x15 reps. 4 Descriptor TT ROM. Towel. Sh flex. Sh ext. Sh abd. Sh hor abd. Sh hor add. Elbow flex. Elbow ext. 3 Descriptor Bimanual functional activities . - Assessment Assessment of Improvement Sukh was seen 1:1 for treatment session. Min phys assist for initial grasp of strap w/ velcro catch; able to remove right hand from strap w/ therapist supporting weight of nathen. Min v.c. to support grasp of right hand w/ use of small bat; no other cues needed with other familiar activities. Use of large ball to 2-handed throw; phys assist with positioning of right palm on large ball. Sukh would likely benefit from being exposed to other/ additional activities that support incorporation of the right hand. Overall, fair session. Continued outpatient OT is recommended to address ROM, strength, functional abilities , attention/awareness, bimanual coordination, and functional problem solving, with goal of incorporating right upper extremity in day- to-day life with engagement in functional and meaningful activities. Home Exercise Program No additional changes were made to HEP on this date. - Plan Therapy Recommendations Continue with Current Program, Advance per Rehabilitation Protocol
--- NOTE | 2021-10-23 15:30 | OT.OP.TRT ---
Visit Care Team Role Provider Type Delfino Epstein MD Attending Provider Physician Primary Care Provider Referring Provider Specialty: Family Practice Address: [address] [place] [address], [id number] Email: [email or web address] Occupational Therapy Treatment Note OT Outpatient Treatment Note - Adult Start: 05/18/21 12:52 Freq: Status: Active Protocol: Document 10/23/21 15:30 AMS (Rec: 10/24/21 11:34 AMS [id number]) OT Outpatient Adult Treatment Note Session Time Visit Start Time 13:30 Visit Stop Time 14:15 Total Visit Minutes 45 Visit Information Plan of Care Dates 10/04/21 - 11/29/20 Insurance Information [facility]; pre- auth required >18 OT visits; max 80/combo PT Setting Treatment Setting Outpatient Care Visit Type Note Type Treatment Note General Information General Information Patient is 65 year-old male referred to outpatient OT by PCP, Delfino Epstein MD, secondary to generalized weakness. PMH: Significant for Antiphospholipid antibody syndrome; Aphasia; CAD; Cardiac Arrhythmia; CVA involving L MCA territory ; Chronic atrial flutter; Chronic systolic CHF; CAD involving [place] coronary artery; DM; DVT; Essential HTN ; Hemiparesis affectiving dominant side 01/27/15; Hyperlipidemia; [place]; Pacemaker; RA; Stenosis of left carotid artery; Systolic heart failure . Patient has been seen here at [facility] outpatient therapy services over the years; he is currently receiving outpatient PT. Patient was d/c in December of 2020. His last fall occurred approx 1-2 months ago on the deck. Patient has R hemishoulder/subluxation sling and R GivMohr Sling; he prefers R randa/subluxation sling; however, he did not come to session w/ sling on. - Subjective Identification Type Name Identification Reconciled With Medical Record Observations Sukh was accompanied by his , Felicity, to treatment session. Anali and her , Elvis, have been primarily overseeing Sukh's execution of exercises in the home (for PROJECT MANAGER/DESIGN MANAGER, PT, and OT). Patient/Caregiver Compliance with Home Good Exercise Program Comment w/ family and caregiver support - Objective Objective Measurements Please refer to below for progress towards meeting established OT goals. Short Term Goals 1. 0-30 degrees active R sh extension. 10/23/21 = 25% met; 0-15 degrees 2. Sukh will be able to position right hand initially on cane vertical/cane horizontally/golf club without physical assistance (x 3 attempts per session), requiring no more than 1-2 verbal cues from therapist, demonstrating improving functional problem solving, attention, and active incorporation of the right upper extremity/hand. 10/23/21 = 75% met GOALS MET 0-20 degrees active R sh flexion. *MET 08/09/21; 0-45 degrees 0-20 degrees active R sh extension. *MET 08/09/21; 0-25 degrees Sebd Teacher Goals 1. Sukh will present with increased attention to the right upper extremity, as well as increased functional incorporation of the right upper extremity; this will be evidenced by active incorporation of the right upper extremity/hand with stabilization of objecs at TT, 3 to 4 times per week based on family report requiring no more than 1-2 verbal cues per occasion. 10/23/21 = 50% met 2. Sukh will be modified independent with execution of home exercise program (upper extremity and functional activities) with support of family utilizing provided written and visual instructions from therapist. 10/23/21 = 50% met - Treatment 2 Descriptor Tone Management. Exercises 7 Descriptor Elbow ext. TB #2 (attempt at place and hold with TB and muscle tapping to facilitate). 1x10. Seated row - sh ext w/ TT assist. TB #1. Handling to support motor planning/ execution. 1x10. 6 Descriptor PROM. Positioning out of flexor pattern distally w/ use of ball. 5 Descriptor Sustained grasp. Wooden dowel. #4 TB resistance . 5 second hold. 1 set of 10 repetitions. Horizontal positioning of cane. Wooden dowel. #4 TB resistance . 5 second hold. 1 set of 10 repetitions. Vertical positioning of cane. 2# velcro ankle weight to cane . 1x15 reps. 4 Descriptor TT ROM. Towel. Sh flex. Sh ext. Sh abd. Sh hor abd. Sh hor add. Elbow flex. Elbow ext. 3 Descriptor Bimanual functional activities . - Assessment Assessment of Improvement Sukh was accompanied by his , Felicity, to treatment session. Per outpatient clinic special agent group insurance, paperwork for insurance had to be completed in order to request more visits. QuickDASH UE Outcome Measure was completed by Felicity and will be scanned into EMR. Insurance paperwork was completed indicating that improvement has been made relative to attention to right upper extremity, bimanual coordination, and functional problem solving with active incorporation of the right hand relative to grasp, release, and positioning of object to support right hand incorporation. Insurance paperwork to be faxed by special agent group insurance. Min phys assist for initial grasp of strap w/ velcro catch; able to remove right hand from strap w/ therapist supporting weight of nathen. Min v.c. to support grasp of right hand w/ use of small bat; no other cues needed with other familiar activities. Use of large ball to 2-handed throw; phys assist with positioning of right palm on large ball. Sukh would likely benefit from being exposed to other/ additional activities that support incorporation of the right hand. Overall, fair session. Continued outpatient OT is recommended to address ROM, strength, functional abilities , attention/awareness, bimanual coordination, and functional problem solving, with goal of incorporating right upper extremity in day- to-day life with engagement in functional and meaningful activities. Home Exercise Program No additional changes were made to [facility] on this date. - Plan Therapy Recommendations Continue with Current Program, Advance per Rehabilitation Protocol
--- NOTE | 2021-11-08 14:54 | OT.OP.TRT ---
Visit Care Team Role Provider Type Delfino Epstein MD Attending Provider Physician Primary Care Provider Referring Provider Specialty: Family Practice Address: [address] [place] [address], [id number] Email: [email or web address] Occupational Therapy Treatment Note OT Outpatient Treatment Note - Adult Start: 05/18/21 12:52 Freq: Status: Active Protocol: Document 11/08/21 14:52 AMS (Rec: 11/08/21 14:54 AMS [id number]) OT Outpatient Adult Treatment Note Session Time Visit Start Time 12:30 Visit Stop Time 13:15 Total Visit Minutes 45 Visit Information Plan of Care Dates 10/04/21 - 11/29/20 Insurance Information [facility]; pre- auth required >18 OT visits; max 80/combo PT Setting Treatment Setting Outpatient Care Visit Type Note Type Treatment Note General Information General Information Patient is 65 year-old male referred to outpatient OT by PCP, Delfino Epstein MD, secondary to generalized weakness. PMH: Significant for Antiphospholipid antibody syndrome; Aphasia; CAD; Cardiac Arrhythmia; CVA involving L MCA territory ; Chronic atrial flutter; Chronic systolic CHF; CAD involving [place] coronary artery; DM; DVT; Essential HTN ; Hemiparesis affectiving dominant side 01/27/15; Hyperlipidemia; [place]; Pacemaker; RA; Stenosis of left carotid artery; Systolic heart failure . Patient has been seen here at [facility] outpatient therapy services over the years; he is currently receiving outpatient PT. Patient was d/c in December of 2020. His last fall occurred approx 1-2 months ago on the deck. Patient has R hemishoulder/subluxation sling and R GivMohr Sling; he prefers R randa/subluxation sling; however, he did not come to session w/ sling on. - Subjective Identification Type Name Identification Reconciled With Medical Record Observations Sukh was seen 1:1 for treatment. Anali and her , Elvis, have been primarily overseeing Sukh's execution of exercises in the home (for MICROSOFT DEVELOPER, PT, and OT). Patient/Caregiver Compliance with Home Good Exercise Program Comment w/ family and caregiver support - Objective Objective Measurements Please refer to below for progress towards meeting established OT goals. Short Term Goals 1. 0-30 degrees active R sh extension. 10/23/21 = 25% met; 0-15 degrees 2. Sukh will be able to position right hand initially on cane vertical/cane horizontally/golf club without physical assistance (x 3 attempts per session), requiring no more than 1-2 verbal cues from therapist, demonstrating improving functional problem solving, attention, and active incorporation of the right upper extremity/hand. 10/23/21 = 75% met GOALS MET 0-20 degrees active R sh flexion. *MET 08/09/21; 0-45 degrees 0-20 degrees active R sh extension. *MET 08/09/21; 0-25 degrees Video Producer Goals 1. Sukh will present with increased attention to the right upper extremity, as well as increased functional incorporation of the right upper extremity; this will be evidenced by active incorporation of the right upper extremity/hand with stabilization of objecs at TT, 3 to 4 times per week based on family report requiring no more than 1-2 verbal cues per occasion. 10/23/21 = 50% met 2. Sukh will be modified independent with execution of home exercise program (upper extremity and functional activities) with support of family utilizing provided written and visual instructions from therapist. 10/23/21 = 50% met - Treatment 2 Descriptor Tone Management. Exercises 7 Descriptor Elbow ext. TB #2 (attempt at place and hold with TB and muscle tapping to facilitate). 1x10. Seated row - sh ext w/ TT assist. TB #1. Handling to support motor planning/ execution. 1x10. 6 Descriptor PROM. Positioning out of flexor pattern distally w/ use of ball. 5 Descriptor Sustained grasp. Wooden dowel. #4 TB resistance . 5 second hold. 1 set of 10 repetitions. Horizontal positioning of cane. Wooden dowel. #4 TB resistance . 5 second hold. 1 set of 10 repetitions. Vertical positioning of cane. 2# velcro ankle weight to cane . 1x15 reps. 4 Descriptor TT ROM. Towel. Sh flex. Sh ext. Sh abd. Sh hor abd. Sh hor add. Elbow flex. Elbow ext. 3 Descriptor Bimanual functional activities . - Assessment Assessment of Improvement Sukh was accompanied by his , Felicity, to treatment session. Min phys assist for initial grasp of strap w/ velcro catch; able to remove right hand from velcro mitt strap without assistance. Min v.c. to support grasp of right hand w/ use of small bat; no other cues were required for functional incorporation of the right hand with execution of familiar activities. Use of large ball to 2-handed throw; phys assist with positioning of right palm on large ball. Sukh would likely benefit from being exposed to other/ additional activities that support incorporation of the right hand. Overall, fair session. Continued outpatient OT is recommended to address ROM, strength, functional abilities , attention/awareness, bimanual coordination, and functional problem solving, with goal of incorporating right upper extremity in day- to-day life with engagement in functional and meaningful activities. Home Exercise Program No additional changes were made to [facility] on this date. - Plan Therapy Recommendations Continue with Current Program, Advance per Rehabilitation Protocol
--- NOTE | 2021-11-15 14:11 | OT.OP.TRT ---
Visit Care Team Role Provider Type Delfino Epstein MD Attending Provider Physician Primary Care Provider Referring Provider Specialty: Family Practice Address: [address] [place] [address], [id number] Email: [email or web address] Occupational Therapy Treatment Note OT Outpatient Treatment Note - Adult Start: 05/18/21 12:52 Freq: Status: Active Protocol: Document 11/15/21 12:31 AMS (Rec: 11/15/21 14:11 AMS [id number]) OT Outpatient Adult Treatment Note Session Time Visit Start Time 12:30 Visit Stop Time 13:15 Total Visit Minutes 45 Visit Information Plan of Care Dates 10/04/21 - 11/29/20 Insurance Information [facility]; pre- auth required >18 OT visits; max 80/combo PT Setting Treatment Setting Outpatient Care Visit Type Note Type Treatment Note General Information General Information Patient is 65 year-old male referred to outpatient OT by PCP, Delfino Epstein MD, secondary to generalized weakness. PMH: Significant for Antiphospholipid antibody syndrome; Aphasia; CAD; Cardiac Arrhythmia; CVA involving L MCA territory ; Chronic atrial flutter; Chronic systolic CHF; CAD involving [place] coronary artery; DM; DVT; Essential HTN ; Hemiparesis affectiving dominant side 01/27/15; Hyperlipidemia; [place]; Pacemaker; RA; Stenosis of left carotid artery; Systolic heart failure . Patient has been seen here at [facility] outpatient therapy services over the years; he is currently receiving outpatient PT. Patient was d/c in December of 2020. His last fall occurred approx 1-2 months ago on the deck. Patient has R hemishoulder/subluxation sling and R GivMohr Sling; he prefers R randa/subluxation sling; however, he did not come to session w/ sling on. - Subjective Identification Type Name Identification Reconciled With Medical Record Observations Sukh was seen 1:1 for treatment. Anali and her , Elvis, have been primarily overseeing Sukh's execution of exercises in the home (for FACTORY FOCUS TECHNICIAN, PT, and OT). Patient/Caregiver Compliance with Home Good Exercise Program Comment w/ family and caregiver support - Objective Objective Measurements Please refer to below for progress towards meeting established OT goals. Short Term Goals 1. 0-30 degrees active R sh extension. 10/23/21 = 25% met; 0-15 degrees 2. Sukh will be able to position right hand initially on cane vertical/cane horizontally/golf club without physical assistance (x 3 attempts per session), requiring no more than 1-2 verbal cues from therapist, demonstrating improving functional problem solving, attention, and active incorporation of the right upper extremity/hand. 10/23/21 = 75% met GOALS MET 0-20 degrees active R sh flexion. *MET 08/09/21; 0-45 degrees 0-20 degrees active R sh extension. *MET 08/09/21; 0-25 degrees Halfway Goals 1. Sukh will present with increased attention to the right upper extremity, as well as increased functional incorporation of the right upper extremity; this will be evidenced by active incorporation of the right upper extremity/hand with stabilization of objecs at TT, 3 to 4 times per week based on family report requiring no more than 1-2 verbal cues per occasion. 10/23/21 = 50% met 2. Sukh will be modified independent with execution of home exercise program (upper extremity and functional activities) with support of family utilizing provided written and visual instructions from therapist. 10/23/21 = 50% met - Treatment 2 Descriptor Tone Management. Exercises 7 Descriptor Elbow ext. TB #2 (attempt at place and hold with TB and muscle tapping to facilitate). 1x10. Seated row - sh ext w/ TT assist. TB #1. Handling to support motor planning/ execution. 1x10. 6 Descriptor PROM. Positioning out of flexor pattern distally w/ use of ball. 5 Descriptor Sustained grasp. Wooden dowel. #4 TB resistance . 5 second hold. 1 set of 10 repetitions. Horizontal positioning of cane. Wooden dowel. #4 TB resistance . 5 second hold. 1 set of 10 repetitions. Vertical positioning of cane. 2# velcro ankle weight to cane . 1x15 reps. 4 Descriptor TT ROM. Towel. Sh flex. Sh ext. Sh abd. Sh hor abd. Sh hor add. Elbow flex. Elbow ext. 3 Descriptor Bimanual functional activities . - Assessment Assessment of Improvement Sukh was seen 1:1 for treatment session. Min phys assist for initial grasp of strap w/ velcro catch; able to remove right hand from velcro mitt strap without assistance . Improved initation and attempt at problem solving with velcro catch compared to previous treatment session. Self-directed correction of grasp of bat with right hand; able to functionally problem solve without need for physical assistance from therapist w/ improved attention to ulnar digits of the hand. Use of medium ball for modified 'volleyball'; phys assist with positioning of right palm on ball. Sukh would likely benefit from being exposed to other/ additional activities that support incorporation of the right hand. Overall, fair session. Continued outpatient OT is recommended to address ROM, strength, functional abilities , attention/awareness, bimanual coordination, and functional problem solving, with goal of incorporating right upper extremity in day- to-day life with engagement in functional and meaningful activities. - Plan Therapy Recommendations Continue with Current Program, Advance per Rehabilitation Protocol
--- NOTE | 2021-11-29 13:55 | OT.OPPN ---
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 (11/29/21) Weakness (11/29/21) OT Progress Note OT Outpatient Treatment Note - Adult Start: 05/18/21 12:52 Freq: Status: Active Protocol: Document 11/29/21 13:38 AMS (Rec: 11/29/21 13:55 AMS [id number]) OT Outpatient Adult Treatment Note Session Time Visit Start Time 12:30 Visit Stop Time 13:15 Total Visit Minutes 45 Visit Information Plan of Care Dates 11/29/21 - 01/24/22 Insurance Information [facility]; pre- auth required >18 OT visits; max 80/combo PT Setting Treatment Setting Outpatient Care Visit Type Note Type Progress Note General Information General Information Patient is 66 year-old male referred to outpatient OT by PCP, Delfino Epstein MD, secondary to generalized weakness. PMH: Significant for Antiphospholipid antibody syndrome; Aphasia; CAD; Cardiac Arrhythmia; CVA involving L MCA territory ; Chronic atrial flutter; Chronic systolic CHF; CAD involving [place] coronary artery; DM; DVT; Essential HTN ; Hemiparesis affectiving dominant side 01/27/15; Hyperlipidemia; [place]; Pacemaker; RA; Stenosis of left carotid artery; Systolic heart failure . Patient has been seen here at [facility] outpatient therapy services over the years; he is currently receiving outpatient PT. Patient was d/c in December of 2020. His last fall occurred approx 1-2 months ago on the deck. Patient has R hemishoulder/subluxation sling and R GivMohr Sling; he prefers R randa/subluxation sling; however, he did not come to session w/ sling on. - Subjective Identification Type Name Identification Reconciled With Medical Record Observations Sukh was seen 1:1 for treatment. Anali and her , Elvis, have been primarily overseeing Sukh's execution of exercises in the home (for MEDICAL TECHNOLOGIST MICROBIOLOGY, PT, and OT). Patient/Caregiver Compliance with Home Good Exercise Program Comment w/ family and caregiver support - Objective Objective Measurements Please refer to below for progress towards meeting established OT goals. Short Term Goals 1. 0-30 degrees active R sh extension. 11/29/21 = 75% met; 0-25 degrees 2. Sukh will be able to position right hand initially on cane vertical/cane horizontally/golf club without physical assistance (x 3 attempts per session), requiring no more than 1-2 verbal cues from therapist, demonstrating improving functional problem solving, attention, and active incorporation of the right upper extremity/hand. 11/29/21 = 75% met GOALS MET 0-20 degrees active R sh flexion. *MET 08/09/21; 0-45 degrees 0-20 degrees active R sh extension. *MET 08/09/21; 0-25 degrees Residential Goals 1. Sukh will present with increased attention to the right upper extremity, as well as increased functional incorporation of the right upper extremity; this will be evidenced by active incorporation of the right upper extremity/hand with stabilization of objecs at TT, 3 to 4 times per week based on family report requiring no more than 1-2 verbal cues per occasion. 11/29/21 = 50% met 2. Sukh will be modified independent with execution of home exercise program (upper extremity and functional activities) with support of family utilizing provided written and visual instructions from therapist. = 50% met - Treatment 2 Descriptor Tone Management. Exercises 7 Descriptor Elbow ext. TB #2 (attempt at place and hold with TB and muscle tapping to facilitate). 1x10. Seated row - sh ext w/ TT assist. TB #1. Handling to support motor planning/ execution. 1x10. 6 Descriptor PROM. Positioning out of flexor pattern distally w/ use of ball. 5 Descriptor Sustained grasp. Wooden dowel. #5 TB resistance . 5 second hold. 1 set of 10 repetitions. Horizontal positioning of cane. Wooden dowel. #5 TB resistance . 5 second hold. 1 set of 10 repetitions. Vertical positioning of cane. 2# velcro ankle weight to cane . 1x15 reps. 4 Descriptor TT ROM. Towel. Sh flex. Sh ext. Sh abd. Sh hor abd. Sh hor add. Elbow flex. Elbow ext. 3 Descriptor Bimanual functional activities . - Assessment Assessment of Improvement Sukh was seen 1:1 for treatment session. Slight improvement has been made relative to attention to right upper extremity, bimanual coordination, and functional problem solving with active incorporation of the right hand relative to grasp, release, and positioning of object to support right hand incorporation. Sukh is demonstrating improving initation and attempt at problem solving with velcro catch compared to previous treatment session with positioning of the right hand. He has been able to grasp small bat, cane, golf club w/ set-up of objects. He has been functionally able to problem solve without need for physical assistance from therapist w/ improved attention to ulnar digits of the hand with these familiar objects. Sukh would likely benefit from being exposed to other/additional activities that support incorporation of the right hand. Sukh did demonstrate improved active sh ext over this cert period progressing towards goal; he benefits from handling, visual cues and environmental modifications to support motor planning of the right upper extremity. Therapist has incorporated modified strengthening exercises based on nonverbal cues re: concerns . Sukh is demonstrating increased ability to engage elbow extensors w/ resistance using isometric hold; he has been unable to pull TB through ROM and needs blocking to avoid compensatory patterns. Overall, good session. Continued outpatient OT is recommended to address ROM, strength, functional abilities , attention/awareness, bimanual coordination, and functional problem solving, with goal of incorporating right upper extremity in day- to-day life with engagement in functional and meaningful activities. Home Exercise Program No additional changes were made to [facility] on this date. - Plan Therapy Recommendations Continue with Current Program, Advance per Rehabilitation Protocol Comment 8 weeks Frequency of Treatment Once a Week Therapeutic Contents Active Range of Motion, Adaptive Equipment Education, Client Education,Cognitive Skills Development,Functional Activities,Home Exercise Program,Joint Protection, Manual Therapy,Education, Neurodevelopment Treatment, Neuromuscular Re-Education, Self-Care,Stretching/ Flexibility Activities, Therapeutic Activities, Therapeutic Exercises, Modalities,Sensory Re- education Modalities As Needed,As Prescribed Please Sign and Return: I have reviewed this Plan of Care and certify that the skilled therapy services above are required to meet the patient?s needs. Physician Signature Date Printed Name and Credentials Clinical Instructor Signature Printed Name and Credentials
--- NOTE | 2021-12-13 15:26 | OT.OP.TRT ---
Visit Care Team Role Provider Type Delfino Epstein MD Attending Provider Physician Primary Care Provider Referring Provider Specialty: Family Practice Address: [address] [place] [address], [id number] Email: [email or web address] Occupational Therapy Treatment Note OT Outpatient Treatment Note - Adult Start: 05/18/21 12:52 Freq: Status: Active Protocol: Document 12/13/21 15:20 AMS (Rec: 12/13/21 15:25 AMS [id number]) OT Outpatient Adult Treatment Note Session Time Visit Start Time 12:30 Visit Stop Time 13:15 Total Visit Minutes 45 Visit Information Plan of Care Dates 11/29/21 - 01/24/22 Insurance Information [facility]; pre- auth required >18 OT visits; max 80/combo PT Setting Treatment Setting Outpatient Care Visit Type Note Type Treatment Note General Information General Information Patient is 66 year-old male referred to outpatient OT by PCP, Delfino Epstein MD, secondary to generalized weakness. PMH: Significant for Antiphospholipid antibody syndrome; Aphasia; CAD; Cardiac Arrhythmia; CVA involving L MCA territory ; Chronic atrial flutter; Chronic systolic CHF; CAD involving [place] coronary artery; DM; DVT; Essential HTN ; Hemiparesis affectiving dominant side 01/27/15; Hyperlipidemia; [place]; Pacemaker; RA; Stenosis of left carotid artery; Systolic heart failure . Patient has been seen here at [facility] outpatient therapy services over the years; he is currently receiving outpatient PT. Patient was d/c in December of 2020. His last fall occurred approx 1-2 months ago on the deck. Patient has R hemishoulder/subluxation sling and R GivMohr Sling; he prefers R randa/subluxation sling; however, he did not come to session w/ sling on. - Subjective Identification Type Name Identification Reconciled With Medical Record Observations Sukh was seen 1:1 for treatment. Anali and her , Elvis, have been primarily overseeing Sukh's execution of exercises in the home (for HIM DIRECTOR, PT, and OT). Patient/Caregiver Compliance with Home Good Exercise Program Comment w/ family and caregiver support - Objective Objective Measurements Please refer to below for progress towards meeting established OT goals. Short Term Goals 1. 0-30 degrees active R sh extension. 11/29/21 = 75% met; 0-25 degrees 2. Sukh will be able to position right hand initially on cane vertical/cane horizontally/golf club without physical assistance (x 3 attempts per session), requiring no more than 1-2 verbal cues from therapist, demonstrating improving functional problem solving, attention, and active incorporation of the right upper extremity/hand. 12/13/21 = 75% met 3. Sukh will demonstrated improved bimanual coordination /functional problem solving; this will be evidenced by ability to separate x 5 pvc pipes and their joints, when given 7 opportunities, requiring no more than 2 to 3 verbal or visual cues from therapist. 12/13/21 = min phys assist GOALS MET 0-20 degrees active R sh flexion. *MET 08/09/21; 0-45 degrees 0-20 degrees active R sh extension. *MET 08/09/21; 0-25 degrees Dredge Pipe Installer Goals 1. Sukh will present with increased attention to the right upper extremity, as well as increased functional incorporation of the right upper extremity; this will be evidenced by active incorporation of the right upper extremity/hand with stabilization of objecs at TT, 3 to 4 times per week based on family report requiring no more than 1-2 verbal cues per occasion. 12/13/21 = 50% met 2. Sukh will be modified independent with execution of home exercise program (upper extremity and functional activities) with support of family utilizing provided written and visual instructions from therapist. = 50% met - Treatment 2 Descriptor Tone Management. Exercises 7 Descriptor Elbow ext. TB #2 (attempt at place and hold with TB and muscle tapping to facilitate). 1x10. Seated row - sh ext w/ TT assist. TB #1. Handling to support motor planning/ execution. 1x10. 6 Descriptor PROM. Positioning out of flexor pattern distally w/ use of ball. 5 Descriptor Sustained grasp. Wooden dowel. #5 TB resistance . 5 second hold. 1 set of 10 repetitions. Horizontal positioning of cane. Wooden dowel. #5 TB resistance . 5 second hold. 1 set of 10 repetitions. Vertical positioning of cane. 2# velcro ankle weight to cane . 1x15 reps. 4 Descriptor TT ROM. Towel. Sh flex. Sh ext. Sh abd. Sh hor abd. Sh hor add. Elbow flex. Elbow ext. 3 Descriptor Bimanual functional activities . PVC pipe and joints ( separation). - Assessment Assessment of Improvement Sukh was seen 1:1 for treatment session. Introduced separation of PVC pipes and joints; max v.c. and min phys assistance. Sukh would likely benefit from continuing to be exposed to other/ additional activities that support incorporation of the right hand/bimanual coordination. Sukh benefits from handling, visual cues and environmental modifications to support motor planning of the right upper extremity. Overall, good session. Continued outpatient OT is recommended to address ROM, strength, functional abilities , attention/awareness, bimanual coordination, and functional problem solving, with goal of incorporating right upper extremity in day- to-day life with engagement in functional and meaningful activities. Home Exercise Program No additional changes were made to HEP on this date. - Plan Therapy Recommendations Continue with Current Program, Advance per Rehabilitation Protocol
--- NOTE | 2021-12-21 15:30 | OT.OP.TRT ---
Visit Care Team Role Provider Type Delfino Epstein MD Attending Provider Physician Primary Care Provider Referring Provider Specialty: Family Practice Address: [address] [place] [address], [id number] Email: [email or web address] Occupational Therapy Treatment Note OT Outpatient Treatment Note - Adult Start: 05/18/21 12:52 Freq: Status: Active Protocol: Document 12/21/21 15:30 AMS (Rec: 12/22/21 08:39 AMS [id number]) OT Outpatient Adult Treatment Note Session Time Visit Start Time 12:30 Visit Stop Time 13:15 Total Visit Minutes 45 Visit Information Plan of Care Dates 11/29/21 - 01/24/22 Insurance Information [facility]; pre- auth required >18 OT visits; max 80/combo PT Setting Treatment Setting Outpatient Care Visit Type Note Type Treatment Note General Information General Information Patient is 66 year-old male referred to outpatient OT by PCP, Delfino Epstein MD, secondary to generalized weakness. PMH: Significant for Antiphospholipid antibody syndrome; Aphasia; CAD; Cardiac Arrhythmia; CVA involving L MCA territory ; Chronic atrial flutter; Chronic systolic CHF; CAD involving [place] coronary artery; DM; DVT; Essential HTN ; Hemiparesis affectiving dominant side 01/27/15; Hyperlipidemia; [place]; Pacemaker; RA; Stenosis of left carotid artery; Systolic heart failure . Patient has been seen here at [facility] outpatient therapy services over the years; he is currently receiving outpatient PT. Patient was d/c in December of 2020. His last fall occurred approx 1-2 months ago on the deck. Patient has R hemishoulder/subluxation sling and R GivMohr Sling; he prefers R randa/subluxation sling; however, he did not come to session w/ sling on. - Subjective Identification Type Name Identification Reconciled With Medical Record Observations Sukh was seen 1:1 for treatment. 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 Patient/Caregiver Compliance with Home Good Exercise Program Comment w/ family and caregiver support - Objective Objective Measurements Please refer to below for progress towards meeting established OT goals. Short Term Goals 1. 0-30 degrees active R sh extension. 11/29/21 = 75% met; 0-25 degrees 2. Sukh will be able to position right hand initially on cane vertical/cane horizontally/golf club without physical assistance (x 3 attempts per session), requiring no more than 1-2 verbal cues from therapist, demonstrating improving functional problem solving, attention, and active incorporation of the right upper extremity/hand. 12/21/21 = 75% met 3. Sukh will demonstrated improved bimanual coordination /functional problem solving; this will be evidenced by ability to separate x 5 pvc pipes and their joints, when given 7 opportunities, requiring no more than 2 to 3 verbal or visual cues from therapist. 12/21/21 = CGA x 1; x 4 w/ SBA GOALS MET 0-20 degrees active R sh flexion. *MET 08/09/21; 0-45 degrees 0-20 degrees active R sh extension. *MET 08/09/21; 0-25 degrees Fpc Goals 1. Skuh will present with increased attention to the right upper extremity, as well as increased functional incorporation of the right upper extremity; this will be evidenced by active incorporation of the right upper extremity/hand with stabilization of objecs at TT, 3 to 4 times per week based on family report requiring no more than 1-2 verbal cues per occasion. 12/13/21 = 50% met 2. Sukh will be modified independent with execution of home exercise program (upper extremity and functional activities) with support of family utilizing provided written and visual instructions from therapist. = 50% met - Treatment 2 Descriptor Tone Management. Exercises 7 Descriptor Elbow ext. TB #2 (attempt at place and hold with TB and muscle tapping to facilitate). 1x10. Seated row - sh ext w/ TT assist. TB #1. Handling to support motor planning/ execution. 1x10. 6 Descriptor PROM. Positioning out of flexor pattern distally w/ use of ball. 5 Descriptor Sustained grasp. Wooden dowel. #5 TB resistance . 5 second hold. 1 set of 10 repetitions. Horizontal positioning of cane. Wooden dowel. #5 TB resistance . 5 second hold. 1 set of 10 repetitions. Vertical positioning of cane. 2# velcro ankle weight to cane . 1x15 reps. 4 Descriptor TT ROM. Towel. Sh flex. Sh ext. Sh abd. Sh hor abd. Sh hor add. Elbow flex. Elbow ext. 3 Descriptor Bimanual functional activities . PVC pipe and joints ( separation). - Assessment Assessment of Improvement Sukh was seen 1:1 for treatment session. Decreased phys assist required with separation PVC pipes and joints; min verbal/visual cues to support functional problem solving. Sukh would likely benefit from continuing to be exposed to other/additional activities that support incorporation of the right hand/bimanual coordination. Sukh benefits from handling, visual cues and environmental modifications to support motor planning of the right upper extremity. Overall, good session. Continued outpatient OT is recommended to address ROM, strength, functional abilities , attention/awareness, bimanual coordination, and functional problem solving, with goal of incorporating right upper extremity in day- to-day life with engagement in functional and meaningful activities. Home Exercise Program No additional changes were made to HEP on this date. - Plan Therapy Recommendations Continue with Current Program, Advance per Rehabilitation Protocol
--- NOTE | 2021-12-22 08:39 | OT.OP.TRT ---
Visit Care Team Role Provider Type Delfino Epstein MD Attending Provider Physician Primary Care Provider Referring Provider Specialty: Family Practice Address: [address] [place] [address], [id number] Email: [email or web address] Occupational Therapy Treatment Note OT Outpatient Treatment Note - Adult Start: 05/18/21 12:52 Freq: Status: Active Protocol: Document 12/21/21 15:30 AMS (Rec: 12/22/21 08:39 AMS [id number]) OT Outpatient Adult Treatment Note Session Time Visit Start Time 12:30 Visit Stop Time 13:15 Total Visit Minutes 45 Visit Information Plan of Care Dates 11/29/21 - 01/24/22 Insurance Information [facility]; pre- auth required >18 OT visits; max 80/combo PT Setting Treatment Setting Outpatient Care Visit Type Note Type Treatment Note General Information General Information Patient is 66 year-old male referred to outpatient OT by PCP, Delfino Epstein MD, secondary to generalized weakness. PMH: Significant for Antiphospholipid antibody syndrome; Aphasia; CAD; Cardiac Arrhythmia; CVA involving L MCA territory ; Chronic atrial flutter; Chronic systolic CHF; CAD involving [place] coronary artery; DM; DVT; Essential HTN ; Hemiparesis affectiving dominant side 01/27/15; Hyperlipidemia; [place]; Pacemaker; RA; Stenosis of left carotid artery; Systolic heart failure . Patient has been seen here at [facility] outpatient therapy services over the years; he is currently receiving outpatient PT. Patient was d/c in December of 2020. His last fall occurred approx 1-2 months ago on the deck. Patient has R hemishoulder/subluxation sling and R GivMohr Sling; he prefers R randa/subluxation sling; however, he did not come to session w/ sling on. - Subjective Identification Type Name Identification Reconciled With Medical Record Observations Sukh was seen 1:1 for treatment. 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 Patient/Caregiver Compliance with Home Good Exercise Program Comment w/ family and caregiver support - Objective Objective Measurements Please refer to below for progress towards meeting established OT goals. Short Term Goals 1. 0-30 degrees active R sh extension. 11/29/21 = 75% met; 0-25 degrees 2. Sukh will be able to position right hand initially on cane vertical/cane horizontally/golf club without physical assistance (x 3 attempts per session), requiring no more than 1-2 verbal cues from therapist, demonstrating improving functional problem solving, attention, and active incorporation of the right upper extremity/hand. 12/21/21 = 75% met 3. Sukh will demonstrated improved bimanual coordination /functional problem solving; this will be evidenced by ability to separate x 5 pvc pipes and their joints, when given 7 opportunities, requiring no more than 2 to 3 verbal or visual cues from therapist. 12/21/21 = CGA x 1; x 4 w/ SBA GOALS MET 0-20 degrees active R sh flexion. *MET 08/09/21; 0-45 degrees 0-20 degrees active R sh extension. *MET 08/09/21; 0-25 degrees Group Home Goals 1. Sukh will present with increased attention to the right upper extremity, as well as increased functional incorporation of the right upper extremity; this will be evidenced by active incorporation of the right upper extremity/hand with stabilization of objecs at TT, 3 to 4 times per week based on family report requiring no more than 1-2 verbal cues per occasion. 12/13/21 = 50% met 2. Sukh will be modified independent with execution of home exercise program (upper extremity and functional activities) with support of family utilizing provided written and visual instructions from therapist. = 50% met - Treatment 2 Descriptor Tone Management. Exercises 7 Descriptor Elbow ext. TB #2 (attempt at place and hold with TB and muscle tapping to facilitate). 1x10. Seated row - sh ext w/ TT assist. TB #1. Handling to support motor planning/ execution. 1x10. 6 Descriptor PROM. Positioning out of flexor pattern distally w/ use of ball. 5 Descriptor Sustained grasp. Wooden dowel. #5 TB resistance . 5 second hold. 1 set of 10 repetitions. Horizontal positioning of cane. Wooden dowel. #5 TB resistance . 5 second hold. 1 set of 10 repetitions. Vertical positioning of cane. 2# velcro ankle weight to cane . 1x15 reps. 4 Descriptor TT ROM. Towel. Sh flex. Sh ext. Sh abd. Sh hor abd. Sh hor add. Elbow flex. Elbow ext. 3 Descriptor Bimanual functional activities . PVC pipe and joints ( separation). - Assessment Assessment of Improvement Sukh was seen 1:1 for treatment session. Decreased phys assist required with separation PVC pipes and joints; min verbal/visual cues to support functional problem solving. Sukh would likely benefit from continuing to be exposed to other/additional activities that support incorporation of the right hand/bimanual coordination. Sukh benefits from handling, visual cues and environmental modifications to support motor planning of the right upper extremity. Overall, good session. Continued outpatient OT is recommended to address ROM, strength, functional abilities , attention/awareness, bimanual coordination, and functional problem solving, with goal of incorporating right upper extremity in day- to-day life with engagement in functional and meaningful activities. Home Exercise Program No additional changes were made to HEP on this date. - Plan Therapy Recommendations Continue with Current Program, Advance per Rehabilitation Protocol
--- NOTE | 2021-12-25 15:30 | OT.OP.TRT ---
Visit Care Team Role Provider Type Delfino Epstein MD Attending Provider Physician Primary Care Provider Referring Provider Specialty: Family Practice Address: [address] [place] [address], [id number] Email: [email or web address] Occupational Therapy Treatment Note OT Outpatient Treatment Note - Adult Start: 05/18/21 12:52 Freq: Status: Active Protocol: Document 12/25/21 15:30 AMS (Rec: 12/26/21 11:45 AMS [id number]) OT Outpatient Adult Treatment Note Session Time Visit Start Time 12:30 Visit Stop Time 13:15 Total Visit Minutes 45 Visit Information Plan of Care Dates 11/29/21 - 01/24/22 Insurance Information [facility]; pre- auth required >18 OT visits; max 80/combo PT Setting Treatment Setting Outpatient Care Visit Type Note Type Treatment Note General Information General Information Patient is 66 year-old male referred to outpatient OT by PCP, Delfino Epstein MD, secondary to generalized weakness. PMH: Significant for Antiphospholipid antibody syndrome; Aphasia; CAD; Cardiac Arrhythmia; CVA involving L MCA territory ; Chronic atrial flutter; Chronic systolic CHF; CAD involving [place] coronary artery; DM; DVT; Essential HTN ; Hemiparesis affectiving dominant side 01/27/15; Hyperlipidemia; GA; Pacemaker; RA; Stenosis of left carotid artery; Systolic heart failure . Patient has been seen here at [facility] outpatient therapy services over the years; he is currently receiving outpatient PT. Patient was d/c in December of 2020. His last fall occurred approx 1-2 months ago on the deck. Patient has R hemishoulder/subluxation sling and R GivMohr Sling; he prefers R randa/subluxation sling; however, he did not come to session w/ sling on. - Subjective Identification Type Name Identification Reconciled With Medical Record Observations Sukh was accompanied by his , Felicity, to treatment session. Anali and her , Elvis, have been primarily overseeing Sukh's execution of exercises in the home (for ARCHEOLOGIST [employer], PT, and OT). Patient/Caregiver Compliance with Home Good Exercise Program Comment w/ family and caregiver support - Objective Objective Measurements Please refer to below for progress towards meeting established OT goals. Short Term Goals 1. 0-30 degrees active R sh extension. 11/29/21 = 75% met; 0-25 degrees 2. Sukh will be able to position right hand initially on cane vertical/cane horizontally/golf club without physical assistance (x 3 attempts per session), requiring no more than 1-2 verbal cues from therapist, demonstrating improving functional problem solving, attention, and active incorporation of the right upper extremity/hand. 12/21/21 = 75% met 3. Sukh will demonstrated improved bimanual coordination /functional problem solving; this will be evidenced by ability to separate x 5 pvc pipes and their joints, when given 7 opportunities, requiring no more than 2 to 3 verbal or visual cues from therapist. 12/25/21 = min phys assist x 3; x 2 w/ SBA GOALS MET 0-20 degrees active R sh flexion. *MET 08/09/21; 0-45 degrees 0-20 degrees active R sh extension. *MET 08/09/21; 0-25 degrees Jail Goals 1. Sukh will present with increased attention to the right upper extremity, as well as increased functional incorporation of the right upper extremity; this will be evidenced by active incorporation of the right upper extremity/hand with stabilization of objecs at TT, 3 to 4 times per week based on family report requiring no more than 1-2 verbal cues per occasion. 12/13/21 = 50% met 2. Sukh will be modified independent with execution of home exercise program (upper extremity and functional activities) with support of family utilizing provided written and visual instructions from therapist. = 50% met - Treatment 2 Descriptor Tone Management. Exercises 7 Descriptor Elbow ext. TB #2 (attempt at place and hold with TB and muscle tapping to facilitate). 1x10. Seated row - sh ext w/ TT assist. TB #1. Handling to support motor planning/ execution. 1x10. 6 Descriptor PROM. Positioning out of flexor pattern distally w/ use of ball. 5 Descriptor Sustained grasp. Wooden dowel. #5 TB resistance . 5 second hold. 1 set of 10 repetitions. Horizontal positioning of cane. Wooden dowel. #5 TB resistance . 5 second hold. 1 set of 10 repetitions. Vertical positioning of cane. 2# velcro ankle weight to cane . 1x15 reps. 4 Descriptor TT ROM. Towel. Sh flex. Sh ext. Sh abd. Sh hor abd. Sh hor add. Elbow flex. Elbow ext. 3 Descriptor Bimanual functional activities . PVC pipe and joints ( separation). - Assessment Assessment of Improvement Sukh was accompanied by his Felicity to treatment session; Sukh had PT outpatient appointment earlier in the day. No significant changes with functional problem solving with bimanual coordination tasks/ incorporation of the R UE observed within treatment session. Sukh would likely benefit from continuing to be exposed to other/additional activities that support incorporation of the right hand/bimanual coordination. Sukh benefits from handling, visual cues and environmental modifications to support motor planning of the right upper extremity. Discussed supporting incorporation of the R hand with drinking fluids/opening containers. Overall, good session. Continued outpatient OT is recommended to address ROM, strength, functional abilities , attention/awareness, bimanual coordination, and functional problem solving, with goal of incorporating right upper extremity in day- to-day life with engagement in functional and meaningful activities. - Plan Therapy Recommendations Continue with Current Program, Advance per Rehabilitation Protocol
--- NOTE | 2022-01-01 14:40 | OT.OP.TRT ---
Visit Care Team Role Provider Type Delfino Epstein MD Attending Provider Physician Primary Care Provider Referring Provider Specialty: Family Practice Address: [address] [place] [address], [id number] Email: [email or web address] Occupational Therapy Treatment Note OT Outpatient Treatment Note - Adult Start: 05/18/21 12:52 Freq: Status: Active Protocol: Document 01/01/22 14:24 AMS (Rec: 01/01/22 14:39 AMS [id number]) OT Outpatient Adult Treatment Note Session Time Visit Start Time 13:30 Visit Stop Time 14:15 Total Visit Minutes 45 Visit Information Plan of Care Dates 11/29/21 - 01/24/22 Insurance Information [facility]; no pre-auth req to annual plan max; max 80/combo Setting Treatment Setting Outpatient Care Visit Type Note Type Treatment Note General Information General Information Patient is 66 year-old male referred to outpatient OT by PCP, Delfino Epstein MD, secondary to generalized weakness. PMH: Significant for Antiphospholipid antibody syndrome; Aphasia; CAD; Cardiac Arrhythmia; CVA involving L MCA territory ; Chronic atrial flutter; Chronic systolic CHF; CAD involving hamilton coronary artery; DM; DVT; Essential HTN ; Hemiparesis affectiving dominant side 01/27/15; Hyperlipidemia; SD; Pacemaker; RA; Stenosis of left carotid artery; Systolic heart failure . Patient has been seen here at [facility] outpatient therapy services over the years; he is currently receiving outpatient PT. Patient was d/c in December of 2020. His last fall occurred approx 1-2 months ago on the deck. Patient has R hemishoulder/subluxation sling and R GivMohr Sling; he prefers R randa/subluxation sling; however, he did not come to session w/ sling on. - Subjective Identification Type Name Identification Reconciled With Medical Record Observations Sukh was seen 1:1 for treatment session. Anali and her , Elvis, have been primarily overseeing Sukh's execution of exercises in the home (for TECHNOLOGY INSTRUCTOR, PT, and OT). Patient/Caregiver Compliance with Home Good Exercise Program Comment w/ family and caregiver support - Objective Objective Measurements Please refer to below for progress towards meeting established OT goals. 01/01/22 = Avg 7.0# of force w/ R hands and dial inspector w/ dynamometer I strength testing. Short Term Goals 1. 0-30 degrees active R sh extension. 11/29/21 = 75% met; 0-25 degrees 2. Sukh will be able to position right hand initially on cane vertical/cane horizontally/golf club without physical assistance (x 3 attempts per session), requiring no more than 1-2 verbal cues from therapist, demonstrating improving functional problem solving, attention, and active incorporation of the right upper extremity/hand. 12/21/21 = 75% met 3. Sukh will demonstrated improved bimanual coordination /functional problem solving; this will be evidenced by ability to separate x 5 pvc pipes and their joints, when given 7 opportunities, requiring no more than 2 to 3 verbal or visual cues from therapist. 12/25/21 = min phys assist x 3; x 2 w/ SBA GOALS MET 0-20 degrees active R sh flexion. *MET 08/09/21; 0-45 degrees 0-20 degrees active R sh extension. *MET 08/09/21; 0-25 degrees Fdc Goals 1. Sukh will present with increased attention to the right upper extremity, as well as increased functional incorporation of the right upper extremity; this will be evidenced by active incorporation of the right upper extremity/hand with stabilization of objecs at TT, 3 to 4 times per week based on family report requiring no more than 1-2 verbal cues per occasion. 12/13/21 = 50% met 2. Sukh will be modified independent with execution of home exercise program (upper extremity and functional activities) with support of family utilizing provided written and visual instructions from therapist. = 50% met - Treatment 2 Descriptor Tone Management. Exercises 7 Descriptor Elbow ext. TB #2 (modified place and hold w/ TB and muscle tapping to facilitate). 1x10. Seated row. Sh ext w/ TT assist (modified). TB #1. Handling to support motor planning/execution. 1x10. 6 Descriptor PROM. Sh abd. ER. Sh abd w/ ER. Finger ext. Wrist all directions. 5 Descriptor Sustained grasp. Wooden dowel. #5 TB resistance . 5 second hold. 1 set of 10 repetitions. Horizontal positioning of cane. Wooden dowel. #5 TB resistance . 5 second hold. 1 set of 5 repetitions. Vertical positioning of cane. N/A. 01/01/22. 2# velcro ankle weight to cane. 1x15 reps. 4 Descriptor TT ROM. Towel. Sh flex. Sh ext. Sh abd. Sh hor abd. Sh hor add. Elbow flex. Elbow ext. 3 Descriptor Bimanual functional activities . PVC pipe and joints ( separation). Opening of screw top container (small). - Assessment Assessment of Improvement Sukh was seen 1:1 for treatment; Sukh did not have PT appointment prior to OT and/or earlier in the day. Avg 7.0# of force w/ R hands and dial inspector w/ dynamometer I strength testing ; this is comparable to previous right hands and dial inspector strength testing results in late 2020 w / OT. Cueing to support motor planning needed given initial use of whole arm/moving into IR position for hands and dial inspector strength testing. No significant changes with functional problem solving with bimanual coordination tasks/ incorporation of the R UE observed within treatment session. Use of left hand only to open small screw top container; modeling for problem solving w/ PVC pipe and joint separation still needed at this time. Need to continue to support incorporation of right hand w/ completion of functional tasks. Sukh would likely benefit from continuing to be exposed to other/additional activities that support incorporation of the right hand/bimanual coordination. Sukh benefits from handling, visual cues and environmental modifications to support motor planning of the right upper extremity. Overall, good session. Continued outpatient OT is recommended to address ROM, strength, functional abilities , attention/awareness, bimanual coordination, and functional problem solving, with goal of incorporating right upper extremity in day- to-day life with engagement in functional and meaningful activities. Home Exercise Program No additional changes were made to HEP on this date. - Plan Therapy Recommendations Continue with Current Program, Advance per Rehabilitation Protocol
--- NOTE | 2022-01-10 15:42 | OT.OP.TRT ---
Visit Care Team Role Provider Type Delfino Epstein MD Attending Provider Physician Primary Care Provider Referring Provider Specialty: Family Practice Address: [address] [place] [address], [id number] Email: [email or web address] Occupational Therapy Treatment Note OT Outpatient Treatment Note - Adult Start: 05/18/21 12:52 Freq: Status: Active Protocol: Document 01/10/22 15:38 AMS (Rec: 01/10/22 15:41 AMS [id number]) OT Outpatient Adult Treatment Note Session Time Visit Start Time 14:30 Visit Stop Time 15:15 Total Visit Minutes 45 Visit Information Plan of Care Dates 11/29/21 - 01/24/22 Insurance Information [facility]; no pre-auth req to annual plan max; max 80/combo Setting Treatment Setting Outpatient Care Visit Type Note Type Treatment Note General Information General Information Patient is 66 year-old male referred to outpatient OT by PCP, Delfino Epstein MD, secondary to generalized weakness. PMH: Significant for Antiphospholipid antibody syndrome; Aphasia; CAD; Cardiac Arrhythmia; CVA involving L MCA territory ; Chronic atrial flutter; Chronic systolic CHF; CAD involving [place] coronary artery; DM; DVT; Essential HTN ; Hemiparesis affectiving dominant side 01/27/15; Hyperlipidemia; AR; Pacemaker; RA; Stenosis of left carotid artery; Systolic heart failure . Patient has been seen here at [facility] outpatient therapy services over the years; he is currently receiving outpatient PT. Patient was d/c in December of 2020. His last fall occurred approx 1-2 months ago on the deck. Patient has R hemishoulder/subluxation sling and R GivMohr Sling; he prefers R randa/subluxation sling; however, he did not come to session w/ sling on. - Subjective Identification Type Name Identification Reconciled With Medical Record Observations Sukh was seen 1:1 for treatment session. Anali and her , Elvis, have been primarily overseeing Sukh's execution of exercises in the home (for DISTRIBUTOR SALES MANAGER, PT, and OT). Patient/Caregiver Compliance with Home Good Exercise Program Comment w/ family and caregiver support - Objective Objective Measurements Please refer to below for progress towards meeting established OT goals. 01/01/22 = Avg 7.0# of force w/ R hospital superintendent w/ dynamometer I strength testing. Short Term Goals 1. 0-30 degrees active R sh extension. 11/29/21 = 75% met; 0-25 degrees 2. Sukh will be able to position right hand initially on cane vertical/cane horizontally/golf club without physical assistance (x 3 attempts per session), requiring no more than 1-2 verbal cues from therapist, demonstrating improving functional problem solving, attention, and active incorporation of the right upper extremity/hand. 12/21/21 = 75% met GOALS MET 0-20 degrees active R sh flexion. *MET 08/09/21; 0-45 degrees 0-20 degrees active R sh extension. *MET 08/09/21; 0-25 degrees Able to separate x 5 pvc pipes and their joints, when given 7 opportunities, requiring no more than 1 model from therapist. *MET 01/10/22 Detention Goals 1. Sukh will present with increased attention to the right upper extremity, as well as increased functional incorporation of the right upper extremity; this will be evidenced by active incorporation of the right upper extremity/hand with stabilization of objects at TT , 3 to 4 times per week based on family report requiring no more than 1-2 verbal cues per occasion. 12/13/21 = 50% met 2. Sukh will be modified independent with execution of home exercise program (upper extremity and functional activities) with support of family utilizing provided written and visual instructions from therapist. = 50% met - Treatment 2 Descriptor Tone Management. Exercises 7 Descriptor Elbow ext. TB #3 (modified place and hold w/ TB and muscle tapping to facilitate). 1x10. Seated row. Sh ext w/ TT assist (modified). TB #2. Handling to support motor planning/execution. 1x10. 6 Descriptor PROM. Sh abd. ER. Sh abd w/ ER. Finger ext. Wrist all directions. 5 Descriptor Sustained grasp. Wooden dowel. #5 TB resistance . 5 second hold. 1 set of 10 repetitions. Horizontal positioning of cane. Wooden dowel. #5 TB resistance . 5 second hold. 1 set of 5 repetitions. Vertical positioning of cane. 2# velcro ankle weight to cane . 1x15 reps. 4 Descriptor TT ROM. Towel. Sh flex. Sh ext. Sh abd. Sh hor abd. Sh hor add. Elbow flex. Elbow ext. 3 Descriptor Bimanual functional activities . PVC pipe and joints ( separation). Opening of screw top container (small). - Assessment Assessment of Improvement Sukh was seen 1:1 for treatment; Sukh did not have PT appointment prior to OT and/or earlier in the day. Improved functional problem solving with bimanual coordination tasks/ incorporation of the R UE observed within treatment session; able to remove joints from single PVC pipe. Thus, met short term goal in this area. Need to continue to support incorporation of right hand w/ completion of functional tasks. Sukh would likely benefit from continuing to be exposed to other/additional activities that support incorporation of the right hand/bimanual coordination. Sukh benefits from handling, visual cues and environmental modifications to support motor planning of the right upper extremity. Overall, good session. Continued outpatient OT is recommended to address ROM, strength, functional abilities , attention/awareness, bimanual coordination, and functional problem solving, with goal of incorporating right upper extremity in day- to-day life with engagement in functional and meaningful activities. Home Exercise Program No additional changes were made to HEP on this date. - Plan Therapy Recommendations Continue with Current Program, Advance per Rehabilitation Protocol
--- NOTE | 2022-01-17 15:38 | OT.OP.TRT ---
Visit Care Team Role Provider Type Delfino Epstein MD Attending Provider Physician Primary Care Provider Referring Provider Specialty: Family Practice Address: [address] [place] [address], [id number] Email: [email or web address] Occupational Therapy Treatment Note OT Outpatient Treatment Note - Adult Start: 05/18/21 12:52 Freq: Status: Active Protocol: Document 01/17/22 15:32 AMS (Rec: 01/17/22 15:38 AMS [id number]) OT Outpatient Adult Treatment Note Session Time Visit Start Time 14:30 Visit Stop Time 15:15 Total Visit Minutes 45 Visit Information Plan of Care Dates 11/29/21 - 01/24/22 Insurance Information [facility]; no pre-auth req to annual plan max; max 80/combo Setting Treatment Setting Outpatient Care Visit Type Note Type Treatment Note General Information General Information Patient is 66 year-old male referred to outpatient OT by PCP, Delfino Epstein MD, secondary to generalized weakness. PMH: Significant for Antiphospholipid antibody syndrome; Aphasia; CAD; Cardiac Arrhythmia; CVA involving L MCA territory ; Chronic atrial flutter; Chronic systolic CHF; CAD involving [place] coronary artery; DM; DVT; Essential HTN ; Hemiparesis affectiving dominant side 01/27/15; Hyperlipidemia; [place]; Pacemaker; RA; Stenosis of left carotid artery; Systolic heart failure . Patient has been seen here at [facility] outpatient therapy services over the years; he is currently receiving outpatient PT. Patient was d/c in December of 2020. His last fall occurred approx 1-2 months ago on the deck. Patient has R hemishoulder/subluxation sling and R GivMohr Sling; he prefers R randa/subluxation sling; however, he did not come to session w/ sling on. - Subjective Identification Type Name Identification Reconciled With Medical Record Observations Sukh was seen 1:1 for treatment session. Anali and her , Elvis, have been primarily overseeing Sukh's execution of exercises in the home (for CLAIM BENEFIT SPECIALIST, PT, and OT). Patient/Caregiver Compliance with Home Good Exercise Program Comment w/ family and caregiver support - Objective Objective Measurements Please refer to below for progress towards meeting established OT goals. 01/01/22 = Avg 7.0# of force w/ R learning disabilities resource teacher w/ dynamometer I strength testing. Short Term Goals 1. 0-30 degrees active R sh extension. 11/29/21 = 75% met; 0-25 degrees 2. Sukh will be able to position right hand initially on cane vertical/cane horizontally/golf club without physical assistance (x 3 attempts per session), requiring no more than 1-2 verbal cues from therapist, demonstrating improving functional problem solving, attention, and active incorporation of the right upper extremity/hand. 01/17/22 = 75% met GOALS MET 0-20 degrees active R sh flexion. *MET 08/09/21; 0-45 degrees 0-20 degrees active R sh extension. *MET 08/09/21; 0-25 degrees Able to separate x 5 pvc pipes and their joints, when given 7 opportunities, requiring no more than 1 model from therapist. *MET 01/10/22 Custodial Goals 1. Sukh will present with increased attention to the right upper extremity, as well as increased functional incorporation of the right upper extremity; this will be evidenced by active incorporation of the right upper extremity/hand with stabilization of objects at TT , 3 to 4 times per week based on family report requiring no more than 1-2 verbal cues per occasion. 12/13/21 = 50% met 2. Sukh will be modified independent with execution of home exercise program (upper extremity and functional activities) with support of family utilizing provided written and visual instructions from therapist. = 50% met - Treatment 2 Descriptor Tone Management. Exercises 7 Descriptor Elbow ext. TB #3 (modified place and hold w/ TB and muscle tapping to facilitate). 1x10. Seated row. Sh ext w/ TT assist (modified). TB #2. Handling to support motor planning/execution. 1x10. 6 Descriptor PROM. Sh abd. ER. Sh abd w/ ER. Finger ext. Wrist all directions. 5 Descriptor Sustained grasp. Wooden dowel. #5 TB resistance . 5 second hold. 1 set of 10 repetitions. Horizontal positioning of cane. Wooden dowel. #5 TB resistance . 5 second hold. 1 set of 5 repetitions. Vertical positioning of cane. 2# velcro ankle weight to cane . 1x15 reps. 4 Descriptor TT ROM. Towel. Sh flex. Sh ext. Sh abd. Sh hor abd. Sh hor add. Elbow flex. Elbow ext. 3 Descriptor Bimanual functional activities . PVC pipe and joints ( separation). Dynamic sitting balance; retrieval of 'coins' w/ container positioned in right hand while seated in chair w/ bilateral arm rests. - Assessment Assessment of Improvement Sukh was seen 1:1 for treatment. Introduced small object retrieval with the left hand while container was positioned in the right hand to support orientation to midline, weight shifting, and bimanual coordination; increased difficulty weight shifting to the right and reaching above the right upper extremity/hand w/ left hand. However, completed w/ increased reliance on arm rest (s) for support. Positioning of cane, golf club, and small bat to support orientation provided by therapist w/ set- up; consider trialing different orientations to support functional problem solving. Need to continue to support incorporation of right hand w/ completion of functional tasks. Sukh would likely benefit from continuing to be exposed to other/additional activities that support incorporation of the right hand/bimanual coordination. Sukh benefits from handling, visual cues and environmental modifications to support motor planning of the right upper extremity. Overall, good session. Continued outpatient OT is recommended to address ROM, strength, functional abilities , attention/awareness, bimanual coordination, and functional problem solving, with goal of incorporating right upper extremity in day- to-day life with engagement in functional and meaningful activities. Home Exercise Program No additional changes were made to HEP on this date. - Plan Therapy Recommendations Continue with Current Program, Advance per Rehabilitation Protocol
--- NOTE | 2022-01-24 15:59 | OT.OPPN ---
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 (01/24/22) Weakness (01/24/22) OT Progress Note OT Outpatient Treatment Note - Adult Start: 05/18/21 12:52 Freq: Status: Active Protocol: Document 01/24/22 15:51 AMS (Rec: 01/24/22 15:58 AMS [id number]) OT Outpatient Adult Treatment Note Session Time Visit Start Time 14:30 Visit Stop Time 15:15 Total Visit Minutes 45 Visit Information Plan of Care Dates 01/24/22 - 04/04/22 Insurance Information [facility]; no pre-auth req to annual plan max; max 80/combo Setting Treatment Setting Outpatient Care Visit Type Note Type Progress Note General Information General Information Patient is 66 year-old male referred to outpatient OT by PCP, Delfino Epstein MD, secondary to generalized weakness. PMH: Significant for Antiphospholipid antibody syndrome; Aphasia; CAD; Cardiac Arrhythmia; CVA involving L MCA territory ; Chronic atrial flutter; Chronic systolic CHF; CAD involving tangirnaq coronary artery; DM; DVT; Essential HTN ; Hemiparesis affectiving dominant side 01/27/15; Hyperlipidemia; AR; Pacemaker; RA; Stenosis of left carotid artery; Systolic heart failure . Patient has been seen here at [facility] outpatient therapy services over the years; he is currently receiving outpatient PT. Patient was d/c in December of 2020. His last fall occurred approx 1-2 months ago on the deck. Patient has R hemishoulder/subluxation sling and R GivMohr Sling; he prefers R randa/subluxation sling; however, he did not come to session w/ sling on. - Subjective Identification Type Name Identification Reconciled With Medical Record Observations Sukh was seen 1:1 for treatment session. Anali and her , Elvis, have been primarily overseeing Sukh's execution of exercises in the home (for ACID TESTER, PT, and OT). Patient/Caregiver Compliance with Home Good Exercise Program Comment w/ family and caregiver support - Objective Objective Measurements Please refer to below for progress towards meeting established OT goals. 01/01/22 = Avg 7.0# of force w/ R reefer truck driver w/ dynamometer I strength testing. Short Term Goals 1. Sukh will be able to position right hand initially on cane vertical/cane horizontally/golf club without physical assistance (x 3 attempts per session), requiring no more than 1-2 verbal cues from therapist, demonstrating improving functional problem solving, attention, and active incorporation of the right upper extremity/hand. 01/17/22 = 75% met GOALS MET 0-20 degrees active R sh flexion. *MET 08/09/21; 0-45 degrees 0-20 degrees active R sh extension. *MET 08/09/21; 0-25 degrees Able to separate x 5 pvc pipes and their joints, when given 7 opportunities, requiring no more than 1 model from therapist. *MET 01/10/22 0-30 degrees active R sh extension. *MET 01/24/22 Link Trainer Maintenance Worker Goals 1. Sukh will present with increased attention to the right upper extremity, as well as increased functional incorporation of the right upper extremity; this will be evidenced by active incorporation of the right upper extremity/hand with stabilization of objects at TT , 3 to 4 times per week based on family report requiring no more than 1-2 verbal cues per occasion. 01/24/22 = 50% met 2. Sukh will be modified independent with execution of home exercise program (upper extremity and functional activities) with support of family utilizing provided written and visual instructions from therapist. = 50% met - Treatment 2 Descriptor Tone Management. Exercises 7 Descriptor Elbow ext. TB #3 (modified place and hold w/ TB and muscle tapping to facilitate). 1x10. Seated row. Sh ext w/ TT assist (modified). TB #2. Handling to support motor planning/execution. 1x10. 6 Descriptor PROM. Sh abd. ER. Sh abd w/ ER. Finger ext. Wrist all directions. 5 Descriptor Sustained grasp. Wooden dowel. #5 TB resistance . 5 second hold. 1 set of 10 repetitions. Horizontal positioning of cane. Wooden dowel. #5 TB resistance . 5 second hold. 1 set of 5 repetitions. Vertical positioning of cane. 2# velcro ankle weight to cane . 1x15 reps. 4 Descriptor TT ROM. Towel. Sh flex. Sh ext. Sh abd. Sh hor abd. Sh hor add. Elbow flex. Elbow ext. 3 Descriptor Bimanual functional activities . PVC pipe and joints ( separation). Dynamic sitting balance; retrieval of 'coins' w/ container positioned in right hand while seated in chair w/ bilateral arm rests. - Assessment Assessment of Improvement Sukh has made some progress over the last certification period; he has demonstrated improved active right sh extension, as well as improved functional problem solving with completion of bimanual activities with active incorporation of the right upper extremity. Increased difficulty weight shifting to the right and reaching above the right upper extremity/hand w/ left hand with container positioned in the right hand to support orientation to midline, weight shifting, and bimanual coordination. Need to continue to support functional problem solving and introduce additional bimanual tasks. Positioning of cane, golf club, and small bat to support orientation provided by therapist w/ set-up; consider trialing different orientations to support functional problem solving. Sukh would likely benefit from continuing to be exposed to other/additional activities that support incorporation of the right hand/bimanual coordination. Sukh benefits from handling, visual cues and environmental modifications to support motor planning of the right upper extremity. Continued outpatient OT is recommended to address ROM, strength, functional abilities , attention/awareness, bimanual coordination, and functional problem solving, with goal of incorporating right upper extremity in day- to-day life with engagement in functional and meaningful activities. Home Exercise Program No additional changes were made to HEP on this date. - Plan Therapy Recommendations Continue with Current Program, Advance per Rehabilitation Protocol Comment 10 weeks Frequency of Treatment Once a Week Therapeutic Contents Active Range of Motion, Adaptive Equipment Education, Client Education,Cognitive Skills Development,Functional Activities,Home Exercise Program,Joint Protection, Manual Therapy,Education, Neurodevelopment Treatment, Neuromuscular Re-Education, Self-Care,Stretching/ Flexibility Activities, Therapeutic Activities, Therapeutic Exercises,Sensory Re-education Please Sign and Return: I have reviewed this Plan of Care and certify that the skilled therapy services above are required to meet the patient?s needs. Physician Signature Date Printed Name and Credentials Clinical Instructor Signature Printed Name and Credentials
--- NOTE | 2022-01-31 16:05 | OT.OP.TRT ---
Visit Care Team Role Provider Type Delfino Epstein MD Attending Provider Physician Primary Care Provider Referring Provider Specialty: Family Practice Address: [address] [place] [address], [id number] Email: [email or web address] Occupational Therapy Treatment Note OT Outpatient Treatment Note - Adult Start: 05/18/21 12:52 Freq: Status: Active Protocol: Document 01/31/22 15:57 AMS (Rec: 01/31/22 16:04 AMS [id number]) OT Outpatient Adult Treatment Note Session Time Visit Start Time 10:30 Visit Stop Time 11:12 Total Visit Minutes 42 Visit Information Plan of Care Dates 01/24/22 - 04/04/22 Insurance Information [facility]; no pre-auth req to annual plan max; max 80/combo Setting Treatment Setting Outpatient Care Visit Type Note Type Treatment Note General Information General Information Patient is 66 year-old male referred to outpatient OT by PCP, Delfino Epstein MD, secondary to generalized weakness. PMH: Significant for Antiphospholipid antibody syndrome; Aphasia; CAD; Cardiac Arrhythmia; CVA involving L MCA territory ; Chronic atrial flutter; Chronic systolic CHF; CAD involving [place] coronary artery; DM; DVT; Essential HTN ; Hemiparesis affectiving dominant side 01/27/15; Hyperlipidemia; VA; Pacemaker; RA; Stenosis of left carotid artery; Systolic heart failure . Patient has been seen here at [facility] outpatient therapy services over the years; he is currently receiving outpatient PT. Patient was d/c in December of 2020. His last fall occurred approx 1-2 months ago on the deck. Patient has R hemishoulder/subluxation sling and R GivMohr Sling; he prefers R randa/subluxation sling; however, he did not come to session w/ sling on. - Subjective Identification Type Name Identification Reconciled With Medical Record Observations Sukh was accompanied by his daughter, Anali, to treatment session. No new concerns were reported. Anali and her , Elvis, have been primarily overseeing Sukh's execution of exercises in the home (for [employer], PT, and OT). Patient/Caregiver Compliance with Home Good Exercise Program Comment w/ family and caregiver support - Objective Objective Measurements Please refer to below for progress towards meeting established OT goals. 01/01/22 = Avg 7.0# of force w/ R vice president process w/ dynamometer I strength testing. 01/31/22 = he buttoned his shirt by himself this morning (1-handed); he also did shave some of his face (I gave him the razor and he did some of it) Short Term Goals 1. Sukh will be able to position right hand initially on cane vertical/cane horizontally/golf club without physical assistance (x 3 attempts per session), requiring no more than 1-2 verbal cues from therapist, demonstrating improving functional problem solving, attention, and active incorporation of the right upper extremity/hand. 01/31/22 = 75% met GOALS MET 0-20 degrees active R sh flexion. *MET 08/09/21; 0-45 degrees 0-20 degrees active R sh extension. *MET 08/09/21; 0-25 degrees Able to separate x 5 pvc pipes and their joints, when given 7 opportunities, requiring no more than 1 model from therapist. *MET 01/10/22 0-30 degrees active R sh extension. *MET 01/24/22 Halfway Goals 1. Sukh will present with increased attention to the right upper extremity, as well as increased functional incorporation of the right upper extremity; this will be evidenced by active incorporation of the right upper extremity/hand with stabilization of objects at TT , 3 to 4 times per week based on family report requiring no more than 1-2 verbal cues per occasion. 01/31/22 = 50% met 2. Sukh will be modified independent with execution of home exercise program (upper extremity and functional activities) with support of family utilizing provided written and visual instructions from therapist. = 50% met - Treatment 2 Descriptor Tone Management. Exercises 7 Descriptor Elbow ext. TB #3 (modified place and hold w/ TB and muscle tapping to facilitate). 1x10. Seated row. Sh ext w/ TT assist (modified). TB #2. Handling to support motor planning/execution. 1x10. 6 Descriptor PROM. Sh abd. ER. Sh abd w/ ER. Finger ext. Wrist all directions. 5 Descriptor Sustained grasp. Wooden dowel. #5 TB resistance . 5 second hold. 1 set of 10 repetitions. Horizontal positioning of cane. Wooden dowel. #5 TB resistance . 5 second hold. 1 set of 5 repetitions. Vertical positioning of cane. 2# velcro ankle weight to cane . 1x15 reps. 4 Descriptor TT ROM. Towel. Sh flex. Sh ext. Sh abd. Sh hor abd. Sh hor add. Elbow flex. Elbow ext. 3 Descriptor Bimanual functional activities . PVC pipe and joints ( separation). Stabilization of bolts wood board w/ R hand/ removal w/ L hand. Dynamic sitting balance; retrieval of 'coins' w/ container positioned in right hand while seated in chair w/ bilateral arm rests. - Assessment Assessment of Improvement Sukh was accompanied by daughter, Anali, to treatment session. Family education to support Sukh's active participation in functional activities and support functional problem solving w/ bimanual tasks (e.g., PVC pipe ). Increased difficulty weight shifting to the right and reaching w/ left hand to retrieve objects with container positioned in the right hand. Introduced manipulative board; assist for positioning of board in the right hand to support left hand manipulation. Recommend fading cues. Need to continue to support functional problem solving and introduce additional bimanual tasks. Positioning of cane, golf club , and small bat to support orientation provided by therapist w/ set-up; consider trialing different orientations to support functional problem solving. Overall, good session. Sukh would likely benefit from continuing to be exposed to other/additional activities that support incorporation of the right hand/bimanual coordination. Sukh benefits from handling, visual cues and environmental modifications to support motor planning of the right upper extremity. Continued outpatient OT is recommended to address ROM, strength, functional abilities , attention/awareness, bimanual coordination, and functional problem solving, with goal of incorporating right upper extremity in day- to-day life with engagement in functional and meaningful activities. Home Exercise Program Family education was completed . - Plan Therapy Recommendations Continue with Current Program, Advance per Rehabilitation Protocol
--- NOTE | 2022-02-21 15:30 | OT.OP.TRT ---
Visit Care Team Role Provider Type Delfino Epstein MD Attending Provider Physician Primary Care Provider Referring Provider Specialty: Family Practice Address: [address] [place] [address], [id number] Email: [email or web address] Occupational Therapy Treatment Note OT Outpatient Treatment Note - Adult Start: 05/18/21 12:52 Freq: Status: Active Protocol: Document 02/21/22 15:30 AMS (Rec: 02/22/22 08:23 AMS [id number]) OT Outpatient Adult Treatment Note Session Time Visit Start Time 12:30 Visit Stop Time 13:15 Total Visit Minutes 45 Visit Information Plan of Care Dates 01/24/22 - 04/04/22 Insurance Information [facility]; no pre-auth req to annual plan max; max 80/combo Setting Treatment Setting Outpatient Care Visit Type Note Type Treatment Note General Information General Information Patient is 66 year-old male referred to outpatient OT by PCP, Delfino Epstein MD, secondary to generalized weakness. PMH: Significant for Antiphospholipid antibody syndrome; Aphasia; CAD; Cardiac Arrhythmia; CVA involving L MCA territory ; Chronic atrial flutter; Chronic systolic CHF; CAD involving [place] coronary artery; DM; DVT; Essential HTN ; Hemiparesis affectiving dominant side 01/27/15; Hyperlipidemia; [place]; Pacemaker; RA; Stenosis of left carotid artery; Systolic heart failure . Patient has been seen here at [facility] outpatient therapy services over the years; he is currently receiving outpatient PT. Patient was d/c in December of 2020. His last fall occurred approx 1-2 months ago on the deck. Patient has R hemishoulder/subluxation sling and R GivMohr Sling; he prefers R randa/subluxation sling; however, he did not come to session w/ sling on. - Subjective Identification Type Name Identification Reconciled With Medical Record Observations Sukh was seen 1:1 for OT; he was observed to have PT treatment session earlier in the day. Sukh indicated concern re: loss of muscle of proximal UE (bicep area). Anali and her , Elvis, have been primarily overseeing Sukh's execution of exercises in the home (for [employer], PT, and OT). Patient/Caregiver Compliance with Home Good Exercise Program Comment w/ family and caregiver support - Objective Objective Measurements Please refer to below for progress towards meeting established OT goals. 01/01/22 = Avg 7.0# of force w/ R mud jack nozzleman w/ dynamometer I strength testing. 01/31/22 = he buttoned his shirt by himself this morning (1-handed); he also did shave some of his face (I gave him the razor and he did some of it) Short Term Goals 1. Sukh will be able to position right hand initially on cane vertical/cane horizontally/golf club without physical assistance (x 3 attempts per session), requiring no more than 1-2 verbal cues from therapist, demonstrating improving functional problem solving, attention, and active incorporation of the right upper extremity/hand. 02/21/22 = 75% met GOALS MET 0-20 degrees active R sh flexion. *MET 08/09/21; 0-45 degrees 0-20 degrees active R sh extension. *MET 08/09/21; 0-25 degrees Able to separate x 5 pvc pipes and their joints, when given 7 opportunities, requiring no more than 1 model from therapist. *MET 01/10/22 0-30 degrees active R sh extension. *MET 01/24/22 Retirement Goals 1. Sukh will present with increased attention to the right upper extremity, as well as increased functional incorporation of the right upper extremity; this will be evidenced by active incorporation of the right upper extremity/hand with stabilization of objects at TT , 3 to 4 times per week based on family report requiring no more than 1-2 verbal cues per occasion. 01/31/22 = 50% met 2. Sukh will be modified independent with execution of home exercise program (upper extremity and functional activities) with support of family utilizing provided written and visual instructions from therapist. = 50% met - Treatment 2 Descriptor Tone Management. Exercises 7 Descriptor Elbow ext. TB #3 (modified place and hold w/ TB and muscle tapping to facilitate). 1x10. Seated row. Sh ext w/ TT assist (modified). TB #2. Handling to support motor planning/execution. 1x10. Elbow flex. Muscle tapping to facilitate. 2 x 10. 6 Descriptor PROM. Sh abd. ER. Sh abd w/ ER. Finger ext. Wrist all directions. 5 Descriptor Sustained grasp. Wooden dowel. #5 TB resistance . 5 second hold. 1 set of 10 repetitions. Horizontal positioning of cane. Wooden dowel. #5 TB resistance . 5 second hold. 1 set of 5 repetitions. Vertical positioning of cane. N/A /20 2# velcro ankle weight to cane. 1x15 reps. 4 Descriptor TT ROM. Towel. Sh flex. Sh ext. Sh abd. Sh hor abd. Sh hor add. Elbow flex. Elbow ext. 3 Descriptor Functional problem solving activities. Bimanual coordination. PVC pipe and joints (separation). x 4 PVC pipes x 2 joints per PVC pipe. Replication of PVC pattern. x 1. Min support required. - Assessment Assessment of Improvement Based conveyed concerns, initiated muscle tapping facilitation w/ elbow flexion; blocking provided by therapist to discourage IR. Min support required w/ functional problem solving of replication of PVC pipe pattern w/ board. Encouragement to removal unfamiliar joint from PVC pipe ; although no modeling or tactile cues were needed from therapist. Need to continue to support functional problem solving and introduce additional bimanual tasks. Positioning of cane, golf club , and small bat to support orientation provided by therapist w/ set-up; consider trialing different orientations to support functional problem solving. Introduced slope to seated golf practice; thus, increasing demands on UEs. Was able to successfully execute x 2 reps. Overall, good session. Sukh would likely benefit from continuing to be exposed to other/additional activities that support incorporation of the right hand/bimanual coordination. Sukh benefits from handling, visual cues and environmental modifications to support motor planning of the right upper extremity. Continued outpatient OT is recommended to address ROM, strength, functional abilities , attention/awareness, bimanual coordination, and functional problem solving, with goal of incorporating right upper extremity in day- to-day life with engagement in functional and meaningful activities. Home Exercise Program Family education was completed . - Plan Therapy Recommendations Continue with Current Program, Advance per Rehabilitation Protocol
--- NOTE | 2022-02-28 15:48 | OT.OP.TRT ---
Visit Care Team Role Provider Type Delfino Epstein MD Attending Provider Physician Primary Care Provider Referring Provider Specialty: Family Practice Address: [address] [place] [address], [id number] Email: [email or web address] Occupational Therapy Treatment Note OT Outpatient Treatment Note - Adult Start: 05/18/21 12:52 Freq: Status: Active Protocol: Document 02/28/22 15:43 AMS (Rec: 02/28/22 15:48 AMS [id number]) OT Outpatient Adult Treatment Note Session Time Visit Start Time 14:30 Visit Stop Time 15:15 Total Visit Minutes 45 Visit Information Plan of Care Dates 01/24/22 - 04/04/22 Insurance Information [facility]; no pre-auth req to annual plan max; max 80/combo Setting Treatment Setting Outpatient Care Visit Type Note Type Treatment Note General Information General Information Patient is 66 year-old male referred to outpatient OT by PCP, Delfino Epstein MD, secondary to generalized weakness. PMH: Significant for Antiphospholipid antibody syndrome; Aphasia; CAD; Cardiac Arrhythmia; CVA involving L MCA territory ; Chronic atrial flutter; Chronic systolic CHF; CAD involving [place] coronary artery; DM; DVT; Essential HTN ; Hemiparesis affectiving dominant side 01/27/15; Hyperlipidemia; MO; Pacemaker; RA; Stenosis of left carotid artery; Systolic heart failure . Patient has been seen here at [facility] outpatient therapy services over the years; he is currently receiving outpatient PT. Patient was d/c in December of 2020. His last fall occurred approx 1-2 months ago on the deck. Patient has R hemishoulder/subluxation sling and R GivMohr Sling; he prefers R randa/subluxation sling; however, he did not come to session w/ sling on. - Subjective Identification Type Name Identification Reconciled With Medical Record Observations Sukh was seen 1:1 for OT. No new concerns were indicated. Anali and her , Elvis, have been primarily overseeing Sukh's execution of exercises in the home (for HAND CLERICAL VERIFIER, PT, and OT). Patient/Caregiver Compliance with Home Good Exercise Program Comment w/ family and caregiver support - Objective Objective Measurements Please refer to below for progress towards meeting established OT goals. 01/01/22 = Avg 7.0# of force w/ R construction grip w/ dynamometer I strength testing. 01/31/22 = he buttoned his shirt by himself this morning (1-handed); he also did shave some of his face (I gave him the razor and he did some of it) Short Term Goals 1. Sukh will be able to position right hand initially on cane vertical/cane horizontally/golf club without physical assistance (x 3 attempts per session), requiring no more than 1-2 verbal cues from therapist, demonstrating improving functional problem solving, attention, and active incorporation of the right upper extremity/hand. 02/21/22 = 75% met GOALS MET 0-20 degrees active R sh flexion. *MET 08/09/21; 0-45 degrees 0-20 degrees active R sh extension. *MET 08/09/21; 0-25 degrees Able to separate x 5 pvc pipes and their joints, when given 7 opportunities, requiring no more than 1 model from therapist. *MET 01/10/22 0-30 degrees active R sh extension. *MET 01/24/22 Sole Tacker Goals 1. Sukh will present with increased attention to the right upper extremity, as well as increased functional incorporation of the right upper extremity; this will be evidenced by active incorporation of the right upper extremity/hand with stabilization of objects at TT , 3 to 4 times per week based on family report requiring no more than 1-2 verbal cues per occasion. 01/31/22 = 50% met 2. Sukh will be modified independent with execution of home exercise program (upper extremity and functional activities) with support of family utilizing provided written and visual instructions from therapist. = 50% met - Treatment 2 Descriptor Tone Management. Exercises 7 Descriptor Elbow ext. TB #3 (modified place and hold w/ TB and muscle tapping to facilitate). 1x10. Seated row. Sh ext w/ TT assist (modified). TB #2. Handling to support motor planning/execution. 1x10. Elbow flex. Muscle tapping to facilitate. 2 x 10. 6 Descriptor PROM. Sh abd. ER. Sh abd w/ ER. Finger ext. Wrist all directions. 5 Descriptor Sustained grasp. Wooden dowel. #5 TB resistance . 5 second hold. 1 set of 10 repetitions. Horizontal positioning of cane. Wooden dowel. #5 TB resistance . 5 second hold. 1 set of 5 repetitions. Vertical positioning of cane. N/A 4/20 2# velcro ankle weight to cane. 1x15 reps. 4 Descriptor TT ROM. Towel. Sh flex. Sh ext. Sh abd. Sh hor abd. Sh hor add. Elbow flex. Elbow ext. 3 Descriptor Functional problem solving activities. Bimanual coordination. PVC pipe and joints (separation). x 4 PVC pipes x 2 joints per PVC pipe. Replication of PVC pattern. x 1. Min support required. - Assessment Assessment of Improvement Min support required w/ functional problem solving of replication of PVC pipe pattern w/ board; mod cueing and min tactile cues to encourage active incorporation of the right upper extremity/ hand w/ breakdown down PVC pipe pattern once completed. Need to continue to support functional problem solving and introduce additional bimanual tasks. Positioning of small bat and golf club was not oriented for patient in today' s treatment session; Sukh identified error and was able to self-correct w/ increased time. Modified slope w/ seated golf practice to support success. Was able to successfully execute x 2 reps. Overall, good session. Sukh would likely benefit from continuing to be exposed to other/additional activities that support incorporation of the right hand/bimanual coordination. Sukh benefits from handling, visual cues and environmental modifications to support motor planning of the right upper extremity. Continued outpatient OT is recommended to address ROM, strength, functional abilities , attention/awareness, bimanual coordination, and functional problem solving, with goal of incorporating right upper extremity in day- to-day life with engagement in functional and meaningful activities. - Plan Therapy Recommendations Continue with Current Program, Advance per Rehabilitation Protocol
--- NOTE | 2022-03-16 13:55 | OT.OP.TRT ---
Visit Care Team Role Provider Type Delfino Epstein MD Attending Provider Physician Primary Care Provider Referring Provider Specialty: Family Practice Address: [address] [place] [address], [id number] Email: [email or web address] Occupational Therapy Treatment Note OT Outpatient Treatment Note - Adult Start: 05/18/21 12:52 Freq: Status: Active Protocol: Document 03/16/22 13:51 AMS (Rec: 03/16/22 13:55 AMS [id number]) OT Outpatient Adult Treatment Note Session Time Visit Start Time 12:30 Visit Stop Time 13:15 Total Visit Minutes 45 Visit Information Plan of Care Dates 01/24/22 - 04/04/22 Insurance Information [facility]; no pre-auth req to annual plan max; max 80/combo Setting Treatment Setting Outpatient Care Visit Type Note Type Treatment Note General Information General Information Patient is 66 year-old male referred to outpatient OT by PCP, Delfino Epstein MD, secondary to generalized weakness. PMH: Significant for Antiphospholipid antibody syndrome; Aphasia; CAD; Cardiac Arrhythmia; CVA involving L MCA territory ; Chronic atrial flutter; Chronic systolic CHF; CAD involving ak chin coronary artery; DM; DVT; Essential HTN ; Hemiparesis affectiving dominant side 01/27/15; Hyperlipidemia; AK; Pacemaker; RA; Stenosis of left carotid artery; Systolic heart failure . Patient has been seen here at [facility] outpatient therapy services over the years; he is currently receiving outpatient PT. Patient was d/c in December of 2020. His last fall occurred approx 1-2 months ago on the deck. Patient has R hemishoulder/subluxation sling and R GivMohr Sling; he prefers R randa/subluxation sling; however, he did not come to session w/ sling on. - Subjective Identification Type Name Identification Reconciled With Medical Record Observations Sukh was seen 1:1 for OT. No new concerns were indicated. Anali and her , Elvis, have been primarily overseeing Sukh's execution of exercises in the home (for [employer], PT, and OT). Patient/Caregiver Compliance with Home Good Exercise Program Comment w/ family and caregiver support - Objective Objective Measurements Please refer to below for progress towards meeting established OT goals. 01/01/22 = Avg 7.0# of force w/ R nuclear equipment research engineer w/ dynamometer I strength testing. 01/31/22 = he buttoned his shirt by himself this morning (1-handed); he also did shave some of his face (I gave him the razor and he did some of it) Short Term Goals 1. Sukh will be able to position right hand initially on cane vertical/cane horizontally/golf club without physical assistance (x 3 attempts per session), requiring no more than 1-2 verbal cues from therapist, demonstrating improving functional problem solving, attention, and active incorporation of the right upper extremity/hand. 02/21/22 = 75% met GOALS MET 0-20 degrees active R sh flexion. *MET 08/09/21; 0-45 degrees 0-20 degrees active R sh extension. *MET 08/09/21; 0-25 degrees Able to separate x 5 pvc pipes and their joints, when given 7 opportunities, requiring no more than 1 model from therapist. *MET 01/10/22 0-30 degrees active R sh extension. *MET 01/24/22 Ultrasound Technologist Goals 1. Sukh will present with increased attention to the right upper extremity, as well as increased functional incorporation of the right upper extremity; this will be evidenced by active incorporation of the right upper extremity/hand with stabilization of objects at TT , 3 to 4 times per week based on family report requiring no more than 1-2 verbal cues per occasion. 01/31/22 = 50% met 2. Sukh will be modified independent with execution of home exercise program (upper extremity and functional activities) with support of family utilizing provided written and visual instructions from therapist. = 50% met - Treatment 2 Descriptor Tone Management. Exercises 7 Descriptor Elbow ext. TB #3 (modified place and hold w/ TB and muscle tapping to facilitate). 1x10. Seated row. Sh ext w/ TT assist (modified). TB #2. Handling to support motor planning/execution. 1x10. Elbow flex. Muscle tapping to facilitate. 2 x 10. 6 Descriptor PROM. Sh abd. ER. Sh abd w/ ER. Finger ext. Wrist all directions. 5 Descriptor Sustained grasp. Wooden dowel. #5 TB resistance . 5 second hold. 1 set of 10 repetitions. Horizontal positioning of cane. Wooden dowel. #5 TB resistance . 5 second hold. 1 set of 5 repetitions. Vertical positioning of cane. N/A 4/20 2# velcro ankle weight to cane. 1x15 reps. 4 Descriptor TT ROM. Towel. Sh flex. Sh ext. Sh abd. Sh hor abd. Sh hor add. Elbow flex. Elbow ext. 3 Descriptor Functional problem solving activities. Bimanual coordination. PVC pipe and joints (separation). x 4 PVC pipes x 2 joints per PVC pipe. Replication of PVC pattern. x 1. Min support required. - Assessment Assessment of Improvement No support required with functional problem solving of replication of PVC pipe pattern w/ board x 1 trial; mod cueing and min tactile cues to encourage active incorporation of the right upper extremity/hand w/ breakdown down PVC pipe pattern once completed. Need to continue to support functional problem solving and introduce additional bimanual tasks. Positioning of small bat and golf club was not oriented for patient in today' s treatment session; Sukh was able to position right hand on these objects without support; however, demonstrated decreased insight into changing position of R hand on bat 'as hand position slid down'. Small slope w/ seated golf practice to w/ success x 4 trials; this suggests improving range/force exertion /problem solving with this activity. Overall, good session. Sukh would likely benefit from continuing to be exposed to other/additional activities that support incorporation of the right hand/bimanual coordination. Sukh benefits from handling, visual cues and environmental modifications to support motor planning of the right upper extremity. Continued outpatient OT is recommended to address ROM, strength, functional abilities , attention/awareness, bimanual coordination, and functional problem solving, with goal of incorporating right upper extremity in day- to-day life with engagement in functional and meaningful activities. Home Exercise Program Family education was completed . - Plan Therapy Recommendations Continue with Current Program, Advance per Rehabilitation Protocol
--- NOTE | 2022-03-23 14:51 | OT.OP.TRT ---
Visit Care Team Role Provider Type Delfino Epstein MD Attending Provider Physician Primary Care Provider Referring Provider Specialty: Family Practice Address: [address] [place] [address], [id number] Email: [email or web address] Occupational Therapy Treatment Note OT Outpatient Treatment Note - Adult Start: 05/18/21 12:52 Freq: Status: Active Protocol: Document 03/23/22 14:48 AMS (Rec: 03/23/22 14:51 AMS [id number]) OT Outpatient Adult Treatment Note Session Time Visit Start Time 14:50 Visit Information Plan of Care Dates 01/24/22 - 04/04/22 Insurance Information [facility]; no pre-auth req to annual plan max; max 80/combo Setting Treatment Setting Outpatient Care Visit Type Note Type Administrative Note - Subjective Observations Therapist contacted Sukh Blevins's , via telephone; phone call was not answered. Thus, brief voicemail was left in re: missed 14:30 outpatient OT appointment. Therapist requested call back for reason for no show; contact information for outpatient clinic was included in voicemail. Therapist to follow-up as appropriate. - - - -
--- NOTE | 2022-03-30 14:26 | OT.OP.TRT ---
Visit Care Team Role Provider Type Delfino Epstein MD Attending Provider Physician Primary Care Provider Referring Provider Specialty: Family Practice Address: [address] [place] [address], [id number] Email: [email or web address] Occupational Therapy Treatment Note OT Outpatient Treatment Note - Adult Start: 05/18/21 12:52 Freq: Status: Active Protocol: Document 03/30/22 14:22 AMS (Rec: 03/30/22 14:25 AMS [id number]) OT Outpatient Adult Treatment Note Session Time Visit Start Time 12:30 Visit Stop Time 13:15 Total Visit Minutes 45 Visit Information Plan of Care Dates 01/24/22 - 04/04/22 Insurance Information [facility]; no pre-auth req to annual plan max; max 80/combo Setting Treatment Setting Outpatient Care Visit Type Note Type Treatment Note General Information General Information Patient is 66 year-old male referred to outpatient OT by PCP, Delfino Epstein MD, secondary to generalized weakness. PMH: Significant for Antiphospholipid antibody syndrome; Aphasia; CAD; Cardiac Arrhythmia; CVA involving L MCA territory ; Chronic atrial flutter; Chronic systolic CHF; CAD involving [place] coronary artery; DM; DVT; Essential HTN ; Hemiparesis affectiving dominant side 01/27/15; Hyperlipidemia; VA; Pacemaker; RA; Stenosis of left carotid artery; Systolic heart failure . Patient has been seen here at [facility] outpatient therapy services over the years; he is currently receiving outpatient PT. Patient was d/c in December of 2020. His last fall occurred approx 1-2 months ago on the deck. Patient has R hemishoulder/subluxation sling and R GivMohr Sling; he prefers R randa/subluxation sling; however, he did not come to session w/ sling on. - Subjective Identification Type Name Identification Reconciled With Medical Record Observations Sukh was seen 1:1 for OT. No new concerns were indicated. Anali and her , Elvis, have been primarily overseeing Sukh's execution of exercises in the home (for CERTIFIED REGISTERED NURSE PRACTITIONER, PT, and OT). [ End ] - Objective Objective Measurements Please refer to below for progress towards meeting established OT goals. 01/01/22 = Avg 7.0# of force w/ R stencil maker w/ dynamometer I strength testing. 01/31/22 = he buttoned his shirt by himself this morning (1-handed); he also did shave some of his face (I gave him the razor and he did some of it) Short Term Goals 1. Sukh will be able to position right hand initially on cane vertical/cane horizontally/golf club without physical assistance (x 3 attempts per session), requiring no more than 1-2 verbal cues from therapist, demonstrating improving functional problem solving, attention, and active incorporation of the right upper extremity/hand. 02/21/22 = 75% met GOALS MET 0-20 degrees active R sh flexion. *MET 08/09/21; 0-45 degrees 0-20 degrees active R sh extension. *MET 08/09/21; 0-25 degrees Able to separate x 5 pvc pipes and their joints, when given 7 opportunities, requiring no more than 1 model from therapist. *MET 01/10/22 0-30 degrees active R sh extension. *MET 01/24/22 Refrigerating Machine Operator Goals 1. Sukh will present with increased attention to the right upper extremity, as well as increased functional incorporation of the right upper extremity; this will be evidenced by active incorporation of the right upper extremity/hand with stabilization of objects at TT , 3 to 4 times per week based on family report requiring no more than 1-2 verbal cues per occasion. 01/31/22 = 50% met 2. Sukh will be modified independent with execution of home exercise program (upper extremity and functional activities) with support of family utilizing provided written and visual instructions from therapist. = 50% met - Treatment 2 Descriptor Tone Management. Exercises 7 Descriptor Elbow ext. TB #3 (modified place and hold w/ TB and muscle tapping to facilitate). 1x10. Seated row. Sh ext w/ TT assist (modified). TB #2. Handling to support motor planning/execution. 1x10. Elbow flex. Muscle tapping to facilitate. 2 x 10. 6 Descriptor PROM. Sh abd. ER. Sh abd w/ ER. Finger ext. Wrist all directions. 5 Descriptor Sustained grasp. Wooden dowel. #5 TB resistance . 5 second hold. 1 set of 10 repetitions. Horizontal positioning of cane. Wooden dowel. #5 TB resistance . 5 second hold. 1 set of 5 repetitions. Vertical positioning of cane. N/A 4/20 2# velcro ankle weight to cane. 1x15 reps. 4 Descriptor TT ROM. Towel. 1 x 15 repetitions per exercise. Sh flex. Sh ext. Sh abd. Sh hor abd. Sh hor add. Elbow flex. Elbow ext. 3 Descriptor Functional problem solving activities. Bimanual coordination. PVC pipe and joints (separation). x 4 PVC pipes x 2 joints per PVC pipe. Replication of PVC pattern. x 1. Min support required. - Assessment Assessment of Improvement No support required with functional problem solving of replication of PVC pipe pattern w/ board x 1 trial; mod cueing to encourage active incorporation of the right upper extremity/hand w/ breakdown down PVC pipe pattern once completed. Sukh was able to position right hand on objects without support; however, demonstrated decreased insight into changing position of R hand as actively progressed. Upgraded slope w/ seated golf practice to w/ success x 5 trials; this suggests improving range/ force exertion/problem solving with this activity. Overall, good session. Sukh would likely benefit from continuing to be exposed to other/additional activities that support incorporation of the right hand/bimanual coordination. Sukh benefits from handling, visual cues and environmental modifications to support motor planning of the right upper extremity. Continued outpatient OT is recommended to address ROM, strength, functional abilities , attention/awareness, bimanual coordination, and functional problem solving, with goal of incorporating right upper extremity in day- to-day life with engagement in functional and meaningful activities. - Plan Therapy Recommendations Continue with Current Program, Advance per Rehabilitation Protocol
--- NOTE | 2022-04-04 15:47 | OT.OPPN ---
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 (04/04/22) Weakness (04/04/22) OT Progress Note OT Outpatient Treatment Note - Adult Start: 05/18/21 12:52 Freq: Status: Active Protocol: Document 04/04/22 15:37 AMS (Rec: 04/04/22 15:47 AMS [id number]) OT Outpatient Adult Treatment Note Session Time Visit Start Time 14:30 Visit Stop Time 15:15 Total Visit Minutes 45 Visit Information Plan of Care Dates 04/04/22 - 06/27/22 Insurance Information [facility]; no pre-auth req to annual plan max; max 80/combo Setting Treatment Setting Outpatient Care Visit Type Note Type Progress Note General Information General Information Patient is 66 year-old male referred to outpatient OT by PCP, Delfino Epstein MD, secondary to generalized weakness. PMH: Significant for Antiphospholipid antibody syndrome; Aphasia; CAD; Cardiac Arrhythmia; CVA involving L MCA territory ; Chronic atrial flutter; Chronic systolic CHF; CAD involving [place] coronary artery; DM; DVT; Essential HTN ; Hemiparesis affectiving dominant side 01/27/15; Hyperlipidemia; NC; Pacemaker; RA; Stenosis of left carotid artery; Systolic heart failure . Patient has been seen here at [facility] outpatient therapy services over the years; he is currently receiving outpatient PT. Patient was d/c in December of 2020. His last fall occurred approx 1-2 months ago on the deck. Patient has R hemishoulder/subluxation sling and R GivMohr Sling; he prefers R randa/subluxation sling; however, he did not come to session w/ sling on. - Subjective Identification Type Name Identification Reconciled With Medical Record Observations Sukh was seen 1:1 for OT. No new concerns were indicated. Anali and her , Elvis, have been primarily overseeing Sukh's execution of exercises in the home (for BUTTERMAKER CONTINUOUS CHURN, PT, and OT). [ End ] - Objective Objective Measurements Please refer to below for progress towards meeting established OT goals. 01/01/22 = Avg 7.0# of force w/ R billet driller w/ dynamometer I. = Avg 7.0# of force w/ R billet driller w/ dynamometer II. 01/31/22 = he buttoned his shirt by himself this morning (1-handed); he also did shave some of his face (I gave him the razor and he did some of it) Short Term Goals 1. Sukh will be able to position right hand initially on cane vertical/cane horizontally/golf club without physical assistance (x 3 attempts per session), requiring no more than 1-2 verbal cues from therapist, demonstrating improving functional problem solving, attention, and active incorporation of the right upper extremity/hand. 04/04/22 = 75% met GOALS MET 0-20 degrees active R sh flexion. *MET 08/09/21; 0-45 degrees. 04/04/22 = 0-45 degrees 0-20 degrees active R sh extension. *MET 08/09/21; 0-25 degrees. Able to separate x 5 pvc pipes and their joints, when given 7 opportunities, requiring no more than 1 model from therapist. *MET 01/10/22 0-30 degrees active R sh extension. *MET 01/24/22; = 0-30 degrees Heat Treating Bluer Goals 1. Suhk will present with increased attention to the right upper extremity, as well as increased functional incorporation of the right upper extremity; this will be evidenced by active incorporation of the right upper extremity/hand with stabilization of objects at TT , 3 to 4 times per week based on family report requiring no more than 1-2 verbal cues per occasion. 04/04/22 = 50% met; min v.c. 2. Sukh will be modified independent with execution of home exercise program (upper extremity and functional activities) with support of family utilizing provided written and visual instructions from therapist. = 50% met - Treatment 2 Descriptor Tone Management. Exercises 7 Descriptor Elbow ext. TB #3 (modified place and hold w/ TB and muscle tapping to facilitate). 1x10. Seated row. Sh ext w/ TT assist (modified). TB #2. Handling to support motor planning/execution. 1x10. Elbow flex. Muscle tapping to facilitate. 2 x 10. 6 Descriptor PROM. Sh abd. ER. Sh abd w/ ER. Finger ext. Wrist all directions. 5 Descriptor Sustained grasp. Wooden dowel. #5 TB resistance . 5 second hold. 1 set of 10 repetitions. Horizontal positioning of cane. Wooden dowel. #5 TB resistance . 5 second hold. 1 set of 5 repetitions. Vertical positioning of cane. N/A 4/20 2# velcro ankle weight to cane. 1x15 reps. 4 Descriptor TT ROM. Towel. 1 x 15 repetitions per exercise. Sh flex. Sh ext. Sh abd. Sh hor abd. Sh hor add. Elbow flex. Elbow ext. 3 Descriptor Functional problem solving activities. Bimanual coordination. PVC pipe and joints (separation). x 4 PVC pipes x 2 joints per PVC pipe. Replication of PVC pattern. x 1. Min support required. - Assessment Assessment of Improvement Sukh has made slight progress over the last certification period relative to active incorporation of the right hand/upper extremity with completion of tasks. However, he continues to require min to mod verbal cueing for active incorporation of the right hand when directed to engage in unfamiliar tasks and requires support when position of the R hand has changed/ altered d/t sustained participation (which also be related to lack of sensation). He has maintained billet driller strength and active range of motion of the right shoulder. Therapist has been able to upgrade slope w/ seated golf practice to w/ success x 5 trials which suggests improving range/force exertion /problem solving with this activity. Sukh would likely benefit from continuing to be exposed to other/additional activities that support incorporation of the right hand/bimanual coordination. Sukh benefits from handling, visual cues and environmental modifications to support motor planning of the right upper extremity. Continued outpatient OT is recommended to address ROM, strength, functional abilities, attention/awareness, bimanual coordination, and functional problem solving, with goal of incorporating right upper extremity in day-to-day life with engagement in functional and meaningful activities. - Plan Therapy Recommendations Continue with Current Program, Advance per Rehabilitation Protocol Comment 12 weeks Frequency of Treatment Once a Week Therapeutic Contents Active Range of Motion, Adaptive Equipment Education, Client Education,Cognitive Skills Development,Functional Activities,Home Exercise Program,Joint Protection, Manual Therapy,Education, Neurodevelopment Treatment, Neuromuscular Re-Education, Self-Care,Stretching/ Flexibility Activities, Therapeutic Activities, Therapeutic Exercises, Modalities,Sensory Re- education Modalities As Needed,As Prescribed Additional Types of Modalities Ultrasound/heat pack/cold pack /contrast baths/paraffin/e- stim If you are in agreement with this Plan of Care, please return a signed and dated copy. I have reviewed this Plan of Care and certify that the skilled therapy services above are required to meet the patient?s needs. Physician Signature Date Printed Name and Credentials Clinical Instructor Signature Printed Name and Credentials
--- NOTE | 2022-04-12 15:30 | OT.OP.TRT ---
Visit Care Team Role Provider Type Delfino Epstein MD Attending Provider Physician Primary Care Provider Referring Provider Specialty: Family Practice Address: [address] [place] [address], [id number] Email: [email or web address] Occupational Therapy Treatment Note OT Outpatient Treatment Note - Adult Start: 05/18/21 12:52 Freq: Status: Active Protocol: Document 04/12/22 15:30 AMS (Rec: 04/13/22 09:30 AMS [id number]) OT Outpatient Adult Treatment Note Session Time Visit Start Time 12:30 Visit Stop Time 13:15 Total Visit Minutes 45 Visit Information Plan of Care Dates 04/04/22 - 06/27/22 Insurance Information [facility]; no pre-auth req to annual plan max; max 80/combo Setting Treatment Setting Outpatient Care Visit Type Note Type Treatment Note General Information General Information Patient is 66 year-old male referred to outpatient OT by PCP, Delfino Epstein MD, secondary to generalized weakness. PMH: Significant for Antiphospholipid antibody syndrome; Aphasia; CAD; Cardiac Arrhythmia; CVA involving L MCA territory ; Chronic atrial flutter; Chronic systolic CHF; CAD involving [place] coronary artery; DM; DVT; Essential HTN ; Hemiparesis affectiving dominant side 01/27/15; Hyperlipidemia; VA; Pacemaker; RA; Stenosis of left carotid artery; Systolic heart failure . Patient has been seen here at [facility] outpatient therapy services over the years; he is currently receiving outpatient PT. Patient was d/c in December of 2020. His last fall occurred approx 1-2 months ago on the deck. Patient has R hemishoulder/subluxation sling and R GivMohr Sling; he prefers R randa/subluxation sling; however, he did not come to session w/ sling on. - Subjective Identification Type Name Identification Reconciled With Medical Record Observations Sukh was seen 1:1 for OT. No new concerns were indicated. Anali and her , Elvis, have been primarily overseeing Sukh's execution of exercises in the home (for SENIOR INDUSTRIAL ENGINEER, PT, and OT). [ End ] - Objective Objective Measurements Please refer to below for progress towards meeting established OT goals. 01/01/22 = Avg 7.0# of force w/ R recreation specialist w/ dynamometer I. = Avg 7.0# of force w/ R recreation specialist w/ dynamometer II. 01/31/22 = he buttoned his shirt by himself this morning (1-handed); he also did shave some of his face (I gave him the razor and he did some of it) Short Term Goals 1. Sukh will be able to position right hand initially on cane vertical/cane horizontally/golf club without physical assistance (x 3 attempts per session), requiring no more than 1-2 verbal cues from therapist, demonstrating improving functional problem solving, attention, and active incorporation of the right upper extremity/hand. 04/04/22 = 75% met GOALS MET 0-20 degrees active R sh flexion. *MET 08/09/21; 0-45 degrees. 04/04/22 = 0-45 degrees 0-20 degrees active R sh extension. *MET 08/09/21; 0-25 degrees. Able to separate x 5 pvc pipes and their joints, when given 7 opportunities, requiring no more than 1 model from therapist. *MET 01/10/22 0-30 degrees active R sh extension. *MET 01/24/22; = 0-30 degrees Intermediate Goals 1. Sukh will present with increased attention to the right upper extremity, as well as increased functional incorporation of the right upper extremity; this will be evidenced by active incorporation of the right upper extremity/hand with stabilization of objects at TT , 3 to 4 times per week based on family report requiring no more than 1-2 verbal cues per occasion. 04/04/22 = 50% met; min v.c. 2. Sukh will be modified independent with execution of home exercise program (upper extremity and functional activities) with support of family utilizing provided written and visual instructions from therapist. = 50% met - Treatment 2 Descriptor Tone Management. Exercises 7 Descriptor Elbow ext. TB #3 (modified place and hold w/ TB and muscle tapping to facilitate). 1x10. Elbow flex. Muscle tapping to facilitate. 2 x 10. 6 Descriptor PROM. Sh abd. ER. Sh abd w/ ER. Finger ext. Wrist all directions. 5 Descriptor Sustained grasp. Wooden dowel. #5 TB resistance . 5 second hold. 1 set of 10 repetitions. Horizontal positioning of cane. Wooden dowel. #5 TB resistance . 5 second hold. 1 set of 5 repetitions. Vertical positioning of cane. 4 Descriptor TT. Towel. Sh flex. 1 x 10 AROM. Resisted 1 x 10 TB #1. Sh ext. 1 x 10 AROM. Resisted 1 x 10 TB #1. Sh hor abd. 1 x 10 AROM. Resisted 1 x 10 TB #1. Sh abd. 1x 15 AROM. 3 Descriptor Functional problem solving activities. Bimanual coordination. PVC pipe and joints (separation). x 4 PVC pipes x 2 joints per PVC pipe. Replication of PVC pattern. x 1. Min support required. - Assessment Assessment of Improvement Sukh required min to mod verbal cueing for active incorporation of the right hand and support for re- positioning of the R hand d/t sustained participation (which also be related to lack of sensation). He has maintained recreation specialist strength and active range of motion of the right shoulder. Sukh had decreased success w/ upgraded slope w/ seated golf practice. Introduced resistance to some of TT UE exercises. Overall, fair session. Sukh would likely benefit from continuing to be exposed to other/additional activities that support incorporation of the right hand/bimanual coordination. Sukh benefits from handling, visual cues and environmental modifications to support motor planning of the right upper extremity. Continued outpatient OT is recommended to address ROM, strength, functional abilities , attention/awareness, bimanual coordination, and functional problem solving, with goal of incorporating right upper extremity in day- to-day life with engagement in functional and meaningful activities. Home Exercise Program Family education was completed . - Plan Therapy Recommendations Continue with Current Program, Advance per Rehabilitation Protocol
--- NOTE | 2022-04-18 14:22 | OT.OP.TRT ---
Visit Care Team Role Provider Type Delfino Epstein MD Attending Provider Physician Primary Care Provider Referring Provider Specialty: Family Practice Address: [address] [place] [address], [id number] Email: [email or web address] Occupational Therapy Treatment Note OT Outpatient Treatment Note - Adult Start: 05/18/21 12:52 Freq: Status: Active Protocol: Document 04/18/22 14:19 AMS (Rec: 04/18/22 14:22 AMS [id number]) OT Outpatient Adult Treatment Note Session Time Visit Start Time 10:30 Visit Stop Time 11:15 Total Visit Minutes 45 Visit Information Plan of Care Dates 04/04/22 - 06/27/22 Insurance Information [facility]; no pre-auth req to annual plan max; max 80/combo Setting Treatment Setting Outpatient Care Visit Type Note Type Treatment Note General Information General Information Patient is 66 year-old male referred to outpatient OT by PCP, Delfino Epstein MD, secondary to generalized weakness. PMH: Significant for Antiphospholipid antibody syndrome; Aphasia; CAD; Cardiac Arrhythmia; CVA involving L MCA territory ; Chronic atrial flutter; Chronic systolic CHF; CAD involving iliam[place] coronary artery; DM; DVT; Essential HTN ; Hemiparesis affectiving dominant side 01/27/15; Hyperlipidemia; NM; Pacemaker; RA; Stenosis of left carotid artery; Systolic heart failure . Patient has been seen here at [facility] outpatient therapy services over the years; he is currently receiving outpatient PT. Patient was d/c in December of 2020. His last fall occurred approx 1-2 months ago on the deck. Patient has R hemishoulder/subluxation sling and R GivMohr Sling; he prefers R randa/subluxation sling; however, he did not come to session w/ sling on. - Subjective Identification Type Name Identification Reconciled With Medical Record Observations Sukh was seen 1:1 for OT. No new concerns were indicated. Anali and her , Elvis, have been primarily overseeing Sukh's execution of exercises in the home (for CHILD CARE NURSE, PT, and OT). [ End ] - Objective Objective Measurements Please refer to below for progress towards meeting established OT goals. 01/01/22 = Avg 7.0# of force w/ R complex care nurse practitioner w/ dynamometer I. = Avg 7.0# of force w/ R complex care nurse practitioner w/ dynamometer II. 01/31/22 = he buttoned his shirt by himself this morning (1-handed); he also did shave some of his face (I gave him the razor and he did some of it) Short Term Goals 1. Sukh will be able to position right hand initially on cane vertical/cane horizontally/golf club without physical assistance (x 3 attempts per session), requiring no more than 1-2 verbal cues from therapist, demonstrating improving functional problem solving, attention, and active incorporation of the right upper extremity/hand. 04/04/22 = 75% met GOALS MET 0-20 degrees active R sh flexion. *MET 08/09/21; 0-45 degrees. 04/04/22 = 0-45 degrees 0-20 degrees active R sh extension. *MET 08/09/21; 0-25 degrees. Able to separate x 5 pvc pipes and their joints, when given 7 opportunities, requiring no more than 1 model from therapist. *MET 01/10/22 0-30 degrees active R sh extension. *MET 01/24/22; = 0-30 degrees Shelter Goals 1. Sukh will present with increased attention to the right upper extremity, as well as increased functional incorporation of the right upper extremity; this will be evidenced by active incorporation of the right upper extremity/hand with stabilization of objects at TT , 3 to 4 times per week based on family report requiring no more than 1-2 verbal cues per occasion. 04/04/22 = 50% met; min v.c. 2. Sukh will be modified independent with execution of home exercise program (upper extremity and functional activities) with support of family utilizing provided written and visual instructions from therapist. = 50% met - Treatment 2 Descriptor Tone Management. Exercises 7 Descriptor Elbow ext. TB #3 (modified place and hold w/ TB and muscle tapping to facilitate). 1x10. Elbow flex. Muscle tapping to facilitate. 2 x 10. 6 Descriptor PROM. Sh abd. ER. Sh abd w/ ER. Finger ext. Wrist all directions. 5 Descriptor Sustained grasp. Wooden dowel. #5 TB resistance . 5 second hold. 1 set of 10 repetitions. Horizontal positioning of cane. Wooden dowel. #5 TB resistance . 5 second hold. 1 set of 5 repetitions. Vertical positioning of cane. 4 Descriptor Sh ROM. TT Sh flex. 1 x 10 AROM. Resisted 1 x 10 TB #1. TT Sh ext. 1 x 10 AROM. Resisted 1 x 10 TB #1. TT Sh hor abd. 1 x 10 AROM. Resisted 1 x 10 TB #1. Sh abd. 1 x 15 AROM. 3 Descriptor Functional problem solving activities. Bimanual coordination. PVC pipe and joints (separation). x 4 PVC pipes x 2 joints per PVC pipe. Replication of PVC pattern. x 1. Min support required. - Assessment Assessment of Improvement Sukh required min to mod verbal cueing for active incorporation of the right hand and support for re- positioning of the R hand d/t sustained participation (which also could be related to lack of sensation). Sukh continues to have decreased success w/ seated golf practice w/ incorporation of small or large slope(s). No changes were made to resistant TT UE exercises. Overall, fair session. Sukh would likely benefit from continuing to be exposed to other/additional activities that support incorporation of the right hand/bimanual coordination. Sukh benefits from handling, visual cues and environmental modifications to support motor planning of the right upper extremity. Continued outpatient OT is recommended to address ROM, strength, functional abilities , attention/awareness, bimanual coordination, and functional problem solving, with goal of incorporating right upper extremity in day- to-day life with engagement in functional and meaningful activities. Home Exercise Program Family education was completed . - Plan Therapy Recommendations Continue with Current Program, Advance per Rehabilitation Protocol
--- NOTE | 2022-04-27 15:30 | OT.OP.TRT ---
Visit Care Team Role Provider Type Delfino Epstein MD Attending Provider Physician Primary Care Provider Referring Provider Specialty: Family Practice Address: [address] [place] [address], [id number] Email: [email or web address] Occupational Therapy Treatment Note OT Outpatient Treatment Note - Adult Start: 05/18/21 12:52 Freq: Status: Active Protocol: Document 04/27/22 15:30 AMS (Rec: 04/30/22 08:45 AMS [id number]) OT Outpatient Adult Treatment Note Session Time Visit Start Time 12:30 Visit Stop Time 13:15 Total Visit Minutes 45 Visit Information Plan of Care Dates 04/04/22 - 06/27/22 Insurance Information [facility]; no pre-auth req to annual plan max; max 80/combo Setting Treatment Setting Outpatient Care Visit Type Note Type Treatment Note General Information General Information Patient is 66 year-old male referred to outpatient OT by PCP, Delfino Epstein MD, secondary to generalized weakness. PMH: Significant for Antiphospholipid antibody syndrome; Aphasia; CAD; Cardiac Arrhythmia; CVA involving L MCA territory ; Chronic atrial flutter; Chronic systolic CHF; CAD involving [place] coronary artery; DM; DVT; Essential HTN ; Hemiparesis affectiving dominant side 01/27/15; Hyperlipidemia; [place]; Pacemaker; RA; Stenosis of left carotid artery; Systolic heart failure . Patient has been seen here at [facility] outpatient therapy services over the years; he is currently receiving outpatient PT. Patient was d/c in December of 2020. His last fall occurred approx 1-2 months ago on the deck. Patient has R hemishoulder/subluxation sling and R GivMohr Sling; he prefers R randa/subluxation sling; however, he did not come to session w/ sling on. - Subjective Identification Type Name Identification Reconciled With Medical Record Observations Sukh was seen 1:1 for OT. No new concerns were indicated. Anali and her , Elvis, have been primarily overseeing Sukh's execution of exercises in the home (for WEBSPHERE ARCHITECT, PT, and OT). [ End ] - Objective Objective Measurements Please refer to below for progress towards meeting established OT goals. 01/01/22 = Avg 7.0# of force w/ R formal wear rental clerk w/ dynamometer I. = Avg 7.0# of force w/ R formal wear rental clerk w/ dynamometer II. 01/31/22 = he buttoned his shirt by himself this morning (1-handed); he also did shave some of his face (I gave him the razor and he did some of it) Short Term Goals 1. Sukh will be able to position right hand initially on cane vertical/cane horizontally/golf club without physical assistance (x 3 attempts per session), requiring no more than 1-2 verbal cues from therapist, demonstrating improving functional problem solving, attention, and active incorporation of the right upper extremity/hand. 04/04/22 = 75% met GOALS MET 0-20 degrees active R sh flexion. *MET 08/09/21; 0-45 degrees. 04/04/22 = 0-45 degrees 0-20 degrees active R sh extension. *MET 08/09/21; 0-25 degrees. Able to separate x 5 pvc pipes and their joints, when given 7 opportunities, requiring no more than 1 model from therapist. *MET 01/10/22 0-30 degrees active R sh extension. *MET 01/24/22; = 0-30 degrees Half-Way Goals 1. Sukh will present with increased attention to the right upper extremity, as well as increased functional incorporation of the right upper extremity; this will be evidenced by active incorporation of the right upper extremity/hand with stabilization of objects at TT , 3 to 4 times per week based on family report requiring no more than 1-2 verbal cues per occasion. 04/04/22 = 50% met; min v.c. 2. Sukh will be modified independent with execution of home exercise program (upper extremity and functional activities) with support of family utilizing provided written and visual instructions from therapist. = 50% met - Treatment 2 Descriptor Tone Management. Exercises 7 Descriptor Elbow ext. TB #3 (modified place and hold w/ TB and muscle tapping to facilitate). 1x10. Elbow flex. Muscle tapping to facilitate. 2 x 10. 6 Descriptor PROM. Sh abd. ER. Sh abd w/ ER. Finger ext. Wrist all directions. 5 Descriptor Sustained grasp. Wooden dowel. #5 TB resistance . 5 second hold. 1 set of 10 repetitions. Horizontal positioning of cane. Wooden dowel. #5 TB resistance . 5 second hold. 1 set of 10 repetitions. Vertical positioning of cane. 4 Descriptor Sh ROM. TT Sh flex. 1 x 10 AROM. Resisted 1 x 10 TB #1. TT Sh ext. 1 x 10 AROM. Resisted 1 x 10 TB #1. TT Sh hor abd. 1 x 10 AROM. Resisted 1 x 10 TB #1. Sh abd. 1 x 15 AROM. 3 Descriptor Functional problem solving activities. Bimanual coordination. PVC pipe and joints (separation). x 4 PVC pipes x 2 joints per PVC pipe. Replication of PVC pattern. x 1. Min support required. - Assessment Assessment of Improvement Sukh required min to mod verbal cueing for active incorporation of the right hand and support for re- positioning of the R hand d/t sustained participation (this could be related to lack of sensation). He continues to require intermittent support for functional problem solving and has not been observed to actively explore different positions of the right hand to support successful participation w/ activities. Sukh demonstrated intermittent success w/ seated golf practice w/ incorporation of small slope(s ); this is a slight improvement compared to previous treatment sessions. No changes were made to resistant TT UE exercises. Overall, fair session. Sukh would likely benefit from continuing to be exposed to other/additional activities that support incorporation of the right hand/bimanual coordination. Sukh benefits from handling, visual cues and environmental modifications to support motor planning of the right upper extremity. Continued outpatient OT is recommended to address ROM, strength, functional abilities , attention/awareness, bimanual coordination, and functional problem solving, with goal of incorporating right upper extremity in day- to-day life with engagement in functional and meaningful activities. - Plan Therapy Recommendations Continue with Current Program, Advance per Rehabilitation Protocol
--- NOTE | 2022-05-02 12:48 | OT.OP.TRT ---
Visit Care Team Role Provider Type Delfino Epstein MD Attending Provider Physician Primary Care Provider Referring Provider Specialty: Family Practice Address: [address] [place] [address], [id number] Email: [email or web address] Occupational Therapy Treatment Note OT Outpatient Treatment Note - Adult Start: 05/18/21 12:52 Freq: Status: Active Protocol: Document 05/02/22 12:43 AMS (Rec: 05/02/22 12:48 AMS [id number]) OT Outpatient Adult Treatment Note Session Time Visit Start Time 10:30 Visit Stop Time 11:15 Total Visit Minutes 45 Visit Information Plan of Care Dates 04/04/22 - 06/27/22 Insurance Information [facility]; no pre-auth req to annual plan max; max 80/combo Setting Treatment Setting Outpatient Care Visit Type Note Type Treatment Note General Information General Information Patient is 66 year-old male referred to outpatient OT by PCP, Delfino Epstein MD, secondary to generalized weakness. PMH: Significant for Antiphospholipid antibody syndrome; Aphasia; CAD; Cardiac Arrhythmia; CVA involving L MCA territory ; Chronic atrial flutter; Chronic systolic CHF; CAD involving [place] coronary artery; DM; DVT; Essential HTN ; Hemiparesis affectiving dominant side 01/27/15; Hyperlipidemia; [place]; Pacemaker; RA; Stenosis of left carotid artery; Systolic heart failure . Patient has been seen here at [facility] outpatient therapy services over the years; he is currently receiving outpatient PT. Patient was d/c in December of 2020. His last fall occurred approx 1-2 months ago on the deck. Patient has R hemishoulder/subluxation sling and R GivMohr Sling; he prefers R randa/subluxation sling; however, he did not come to session w/ sling on. - Subjective Identification Type Name Identification Reconciled With Medical Record Observations Sukh was seen 1:1 for OT. No new concerns were indicated. Anali and her , Elvis, have been primarily overseeing Sukh's execution of exercises in the home (for ISOTOPE TECHNICIAN, PT, and OT). [ End ] - Objective Objective Measurements Please refer to below for progress towards meeting established OT goals. 01/01/22 = Avg 7.0# of force w/ R activities officer w/ dynamometer I. = Avg 7.0# of force w/ R activities officer w/ dynamometer II. 01/31/22 = he buttoned his shirt by himself this morning (1-handed); he also did shave some of his face (I gave him the razor and he did some of it) Short Term Goals 1. Sukh will be able to position right hand initially on cane vertical/cane horizontally/golf club without physical assistance (x 3 attempts per session), requiring no more than 1-2 verbal cues from therapist, demonstrating improving functional problem solving, attention, and active incorporation of the right upper extremity/hand. 04/04/22 = 75% met GOALS MET 0-20 degrees active R sh flexion. *MET 08/09/21; 0-45 degrees. 04/04/22 = 0-45 degrees 0-20 degrees active R sh extension. *MET 08/09/21; 0-25 degrees. Able to separate x 5 pvc pipes and their joints, when given 7 opportunities, requiring no more than 1 model from therapist. *MET 01/10/22 0-30 degrees active R sh extension. *MET 01/24/22; = 0-30 degrees Shelter Goals 1. Sukh will present with increased attention to the right upper extremity, as well as increased functional incorporation of the right upper extremity; this will be evidenced by active incorporation of the right upper extremity/hand with stabilization of objects at TT , 3 to 4 times per week based on family report requiring no more than 1-2 verbal cues per occasion. 04/04/22 = 50% met; min v.c. 2. Sukh will be modified independent with execution of home exercise program (upper extremity and functional activities) with support of family utilizing provided written and visual instructions from therapist. = 50% met - Treatment 2 Descriptor Tone Management. Exercises 7 Descriptor Elbow ext. TB #3 (modified place and hold w/ TB and muscle tapping to facilitate). 1x10. Elbow flex. Muscle tapping to facilitate. 2 x 10. 6 Descriptor PROM. Sh abd. ER. Sh abd w/ ER. Finger ext. Wrist all directions. 5 Descriptor Sustained grasp. Wooden dowel. #5 TB resistance . 5 second hold. 1 set of 10 repetitions. Horizontal positioning of cane. Wooden dowel. #5 TB resistance . 5 second hold. 1 set of 10 repetitions. Vertical positioning of cane. 4 Descriptor Sh ROM. TT Sh flex. 1 x 15 AROM. Resisted 1 x 15 TB #1. TT Sh ext. 1 x 15 AROM. Resisted 1 x 15 TB #1. TT Sh hor abd. 1 x 15 AROM. Resisted 1 x 15 TB #1. Sh abd. 1 x 15 AROM. 3 Descriptor Functional problem solving activities. Replication of PVC pattern. x 1. Min support required. Creation/Task break-down - clean-up - Assessment Assessment of Improvement Sukh required min verbal cueing for active incorporation of the right hand and support for re- positioning of the R hand d/t sustained participation. This could be related to lack of sensation. It is important to note however, Sukh self- initiated and re-adjusted activities officer of right hand on golf club and trialed different PVC pipe positions in right hand for the first time today! Sukh continues to require intermittent support for functional problem solving. Sukh was unsuccessful w/ seated golfing w/ use of small slope. Therapist increased number of repetitions for active range of motion and resistant UE strengthening exercises; (-) signs of fatigue and/or request to be done despite increase in repetitions. Overall, fair session. Sukh would likely benefit from continuing to be exposed to other/additional activities that support incorporation of the right hand/bimanual coordination. Sukh benefits from handling, visual cues and environmental modifications to support motor planning of the right upper extremity. Continued outpatient OT is recommended to address ROM, strength, functional abilities , attention/awareness, bimanual coordination, and functional problem solving, with goal of incorporating right upper extremity in day- to-day life with engagement in functional and meaningful activities. - Plan Therapy Recommendations Continue with Current Program, Advance per Rehabilitation Protocol
--- NOTE | 2022-05-09 15:58 | OT.OP.TRT ---
Visit Care Team Role Provider Type Delfino Epstein MD Attending Provider Physician Primary Care Provider Referring Provider Specialty: Family Practice Address: [address] [place] [place] [address], [id number] Email: [email or web address] Occupational Therapy Treatment Note OT Outpatient Treatment Note - Adult Start: 05/18/21 12:52 Freq: Status: Active Protocol: Document 05/09/22 15:55 AMS (Rec: 05/09/22 15:58 AMS [id number]) OT Outpatient Adult Treatment Note Session Time Visit Start Time 10:30 Visit Stop Time 11:15 Total Visit Minutes 45 Visit Information Plan of Care Dates 04/04/22 - 06/27/22 Insurance Information [facility]; no pre-auth req to annual plan max; max 80/combo Setting Treatment Setting Outpatient Care Visit Type Note Type Treatment Note General Information General Information Patient is 66 year-old male referred to outpatient OT by PCP, Delfino Epstein MD, secondary to generalized weakness. PMH: Significant for Antiphospholipid antibody syndrome; Aphasia; CAD; Cardiac Arrhythmia; CVA involving L MCA territory ; Chronic atrial flutter; Chronic systolic CHF; CAD involving [place] coronary artery; DM; DVT; Essential HTN ; Hemiparesis affectiving dominant side 01/27/15; Hyperlipidemia; PR; Pacemaker; RA; Stenosis of left carotid artery; Systolic heart failure . Patient has been seen here at [facility] outpatient therapy services over the years; he is currently receiving outpatient PT. Patient was d/c in December of 2020. His last fall occurred approx 1-2 months ago on the deck. Patient has R hemishoulder/subluxation sling and R GivMohr Sling; he prefers R randa/subluxation sling; however, he did not come to session w/ sling on. - Subjective Identification Type Name Identification Reconciled With Medical Record Observations Sukh was seen 1:1 for OT. No new concerns were indicated. Anali and her , Elvis, have been primarily overseeing Sukh's execution of exercises in the home (for LUNCH COOK, PT, and OT). [ End ] - Objective Objective Measurements Please refer to below for progress towards meeting established OT goals. 01/01/22 = Avg 7.0# of force w/ R software quality tester w/ dynamometer I. = Avg 7.0# of force w/ R software quality tester w/ dynamometer II. 01/31/22 = he buttoned his shirt by himself this morning (1-handed); he also did shave some of his face (I gave him the razor and he did some of it) Short Term Goals 1. Sukh will be able to position right hand initially on cane vertical/cane horizontally/golf club without physical assistance (x 3 attempts per session), requiring no more than 1-2 verbal cues from therapist, demonstrating improving functional problem solving, attention, and active incorporation of the right upper extremity/hand. 04/04/22 = 75% met GOALS MET 0-20 degrees active R sh flexion. *MET 08/09/21; 0-45 degrees. 04/04/22 = 0-45 degrees 0-20 degrees active R sh extension. *MET 08/09/21; 0-25 degrees. Able to separate x 5 pvc pipes and their joints, when given 7 opportunities, requiring no more than 1 model from therapist. *MET 01/10/22 0-30 degrees active R sh extension. *MET 01/24/22; = 0-30 degrees Half-Way Goals 1. Sukh will present with increased attention to the right upper extremity, as well as increased functional incorporation of the right upper extremity; this will be evidenced by active incorporation of the right upper extremity/hand with stabilization of objects at TT , 3 to 4 times per week based on family report requiring no more than 1-2 verbal cues per occasion. 04/04/22 = 50% met; min v.c. 2. Sukh will be modified independent with execution of home exercise program (upper extremity and functional activities) with support of family utilizing provided written and visual instructions from therapist. = 50% met - Treatment 2 Descriptor Tone Management. Exercises 7 Descriptor Elbow ext. TB #3 (modified place and hold w/ TB and muscle tapping to facilitate). 1x10. Elbow flex. Muscle tapping to facilitate. 2 x 10. 6 Descriptor PROM. Sh abd. ER. Sh abd w/ ER. Finger ext. Wrist all directions. 5 Descriptor Sustained grasp. Wooden dowel. #5 TB resistance . 5 second hold. 1 set of 10 repetitions. Horizontal positioning of cane. Wooden dowel. #5 TB resistance . 5 second hold. 1 set of 10 repetitions. Vertical positioning of cane. 4 Descriptor Sh ROM. TT Sh flex. 1 x 15 AROM. Resisted 1 x 15 TB #1. TT Sh ext. 1 x 15 AROM. Resisted 1 x 15 TB #1. TT Sh hor abd. 1 x 15 AROM. Resisted 1 x 15 TB #1. Sh abd. 1 x 15 AROM. 3 Descriptor Functional problem solving activities. Replication of PVC pattern. x 1. Min support required. Creation/Task break-down - clean-up - Assessment Assessment of Improvement Sukh required min verbal cueing for active incorporation of the right hand and support for re- positioning of the R hand d/t sustained participation. Sukh required min verbal support for functional problem solving (PVC pipe pattern replication). Sukh was successful w/ seated golfing w / use of small slope x 5 repetitions. Continued expectation of 15 repetitions w/ the exercises. Overall, fair session. Sukh would likely benefit from continuing to be exposed to other/additional activities that support incorporation of the right hand/bimanual coordination. Sukh benefits from handling, visual cues and environmental modifications to support motor planning of the right upper extremity. Continued outpatient OT is recommended to address ROM, strength, functional abilities , attention/awareness, bimanual coordination, and functional problem solving, with goal of incorporating right upper extremity in day- to-day life with engagement in functional and meaningful activities. Home Exercise Program Family education was completed . - Plan Therapy Recommendations Continue with Current Program, Advance per Rehabilitation Protocol
--- NOTE | 2022-05-16 15:50 | OT.OP.TRT ---
Visit Care Team Role Provider Type Delfino Epstein MD Attending Provider Physician Primary Care Provider Referring Provider Specialty: Family Practice Address: [address] [place] [address], [id number] Email: [email or web address] Occupational Therapy Treatment Note OT Outpatient Treatment Note - Adult Start: 05/18/21 12:52 Freq: Status: Active Protocol: Document 05/16/22 15:46 AMS (Rec: 05/16/22 15:50 AMS [id number]) OT Outpatient Adult Treatment Note Session Time Visit Start Time 10:30 Visit Stop Time 11:15 Total Visit Minutes 45 Visit Information Plan of Care Dates 04/04/22 - 06/27/22 Insurance Information [facility]; no pre-auth req to annual plan max; max 80/combo Setting Treatment Setting Outpatient Care Visit Type Note Type Treatment Note General Information General Information Patient is 66 year-old male referred to outpatient OT by PCP, Delfino Epstein MD, secondary to generalized weakness. PMH: Significant for Antiphospholipid antibody syndrome; Aphasia; CAD; Cardiac Arrhythmia; CVA involving L MCA territory ; Chronic atrial flutter; Chronic systolic CHF; CAD involving [place] coronary artery; DM; DVT; Essential HTN ; Hemiparesis affectiving dominant side 01/27/15; Hyperlipidemia; VT; Pacemaker; RA; Stenosis of left carotid artery; Systolic heart failure . Patient has been seen here at [facility] outpatient therapy services over the years; he is currently receiving outpatient PT. Patient was d/c in December of 2020. His last fall occurred approx 1-2 months ago on the deck. Patient has R hemishoulder/subluxation sling and R GivMohr Sling; he prefers R randa/subluxation sling; however, he did not come to session w/ sling on. - Subjective Identification Type Name Identification Reconciled With Medical Record Observations Sukh was seen 1:1 for OT. No new concerns were indicated. Anali and her , Elvis, have been primarily overseeing Sukh's execution of exercises in the home (for SAFETY COMPLIANCE SPECIALIST, PT, and OT). [ End ] - Objective Objective Measurements Please refer to below for progress towards meeting established OT goals. 01/01/22 = Avg 7.0# of force w/ R substation operator helper generation w/ dynamometer I. = Avg 7.0# of force w/ R substation operator helper generation w/ dynamometer II. 01/31/22 = he buttoned his shirt by himself this morning (1-handed); he also did shave some of his face (I gave him the razor and he did some of it) Short Term Goals 1. Sukh will be able to position right hand initially on cane vertical/cane horizontally/golf club without physical assistance (x 3 attempts per session), requiring no more than 1-2 verbal cues from therapist, demonstrating improving functional problem solving, attention, and active incorporation of the right upper extremity/hand. 04/04/22 = 75% met GOALS MET 0-20 degrees active R sh flexion. *MET 08/09/21; 0-45 degrees. 04/04/22 = 0-45 degrees 0-20 degrees active R sh extension. *MET 08/09/21; 0-25 degrees. Able to separate x 5 pvc pipes and their joints, when given 7 opportunities, requiring no more than 1 model from therapist. *MET 01/10/22 0-30 degrees active R sh extension. *MET 01/24/22; = 0-30 degrees Skilled Nursing Goals 1. Sukh will present with increased attention to the right upper extremity, as well as increased functional incorporation of the right upper extremity; this will be evidenced by active incorporation of the right upper extremity/hand with stabilization of objects at TT , 3 to 4 times per week based on family report requiring no more than 1-2 verbal cues per occasion. 04/04/22 = 50% met; min v.c. 2. Sukh will be modified independent with execution of home exercise program (upper extremity and functional activities) with support of family utilizing provided written and visual instructions from therapist. = 50% met - Treatment 2 Descriptor Tone Management. Exercises 7 Descriptor Elbow ext. TB #2 (modified place and hold x 3 sec w/ TB and muscle tapping to facilitate). 2 x 10. Elbow flex. Muscle tapping to facilitate. 2 x 10. 6 Descriptor PROM. Sh abd. ER. Sh abd w/ ER. Finger ext. Wrist all directions. 5 Descriptor Sustained grasp. Wooden dowel. #5 TB resistance . 5 second hold. 1 set of 10 repetitions. Horizontal positioning of cane. Wooden dowel. #5 TB resistance . 5 second hold. 1 set of 10 repetitions. Vertical positioning of cane. 4 Descriptor Sh ROM. TT Sh flex. 1 x 15 AROM. Resisted 1 x 15 TB #1. TT Sh ext. 1 x 15 AROM. Resisted 1 x 15 TB #1. TT Sh hor abd. 1 x 15 AROM. Resisted 1 x 15 TB #1. Sh abd. 1 x 15 AROM. 3 Descriptor Functional problem solving activities. Replication of PVC pattern. x 1. Min support required. Creation/Task break-down - clean-up - Assessment Assessment of Improvement Sukh required min verbal cueing for active incorporation of the right hand and support for re- positioning of the R hand d/t sustained participation with bimanual activities. No support was required for functional problem solving (w/ PVC pipe pattern replication) x 1 trial. Sukh was successful w/ seated golfing w / use of small slope x 5 repetitions. Increased number of sets of modified place and hold elbow extension; will look to increase repetitions w / exercise next. Recommend incorporating additional tasks that support functional bimanual coordination of the upper extremities/functional problem solving. Overall, fair session. Sukh would likely benefit from continuing to be exposed to other/additional activities that support incorporation of the right hand/bimanual coordination. Sukh benefits from handling, visual cues and environmental modifications to support motor planning of the right upper extremity. Continued outpatient OT is recommended to address ROM, strength, functional abilities , attention/awareness, bimanual coordination, and functional problem solving, with goal of incorporating right upper extremity in day- to-day life with engagement in functional and meaningful activities. Home Exercise Program Family education was completed . - Plan Therapy Recommendations Continue with Current Program, Advance per Rehabilitation Protocol
--- NOTE | 2022-05-23 15:35 | OT.OP.TRT ---
Visit Care Team Role Provider Type Delfino Epstein MD Attending Provider Physician Primary Care Provider Referring Provider Specialty: Family Practice Address: [address] [place] [address], [id number] Email: [email or web address] Occupational Therapy Treatment Note OT Outpatient Treatment Note - Adult Start: 05/18/21 12:52 Freq: Status: Active Protocol: Document 05/23/22 11:39 AMS (Rec: 05/23/22 15:35 AMS [id number]) OT Outpatient Adult Treatment Note Session Time Visit Start Time 10:30 Visit Stop Time 11:15 Total Visit Minutes 45 Visit Information Plan of Care Dates 04/04/22 - 06/27/22 Insurance Information [facility]; no pre-auth req to annual plan max; max 80/combo Setting Treatment Setting Outpatient Care Visit Type Note Type Treatment Note General Information General Information Patient is 66 year-old male referred to outpatient OT by PCP, Delfino Epstein MD, secondary to generalized weakness. PMH: Significant for Antiphospholipid antibody syndrome; Aphasia; CAD; Cardiac Arrhythmia; CVA involving L MCA territory ; Chronic atrial flutter; Chronic systolic CHF; CAD involving tangirnaq coronary artery; DM; DVT; Essential HTN ; Hemiparesis affectiving dominant side 01/27/15; Hyperlipidemia; [place]; Pacemaker; RA; Stenosis of left carotid artery; Systolic heart failure . Patient has been seen here at [facility] outpatient therapy services over the years; he is currently receiving outpatient PT. Patient was d/c in December of 2020. His last fall occurred approx 1-2 months ago on the deck. Patient has R hemishoulder/subluxation sling and R GivMohr Sling; he prefers R randa/subluxation sling; however, he did not come to session w/ sling on. - Subjective Identification Type Name Identification Reconciled With Medical Record Observations Sukh was seen 1:1 for OT. No new concerns were indicated. Anali and her , Elvis, have been primarily overseeing Sukh's execution of exercises in the home (for ASSET PROTECTION SPECIALIST, PT, and OT). [ End ] - Objective Objective Measurements Please refer to below for progress towards meeting established OT goals. 01/01/22 = Avg 7.0# of force w/ R speed belt sander w/ dynamometer I. = Avg 7.0# of force w/ R speed belt sander w/ dynamometer II. 01/31/22 = he buttoned his shirt by himself this morning (1-handed); he also did shave some of his face (I gave him the razor and he did some of it) Short Term Goals 1. Sukh will be able to position right hand initially on cane vertical/cane horizontally/golf club without physical assistance (x 3 attempts per session), requiring no more than 1-2 verbal cues from therapist, demonstrating improving functional problem solving, attention, and active incorporation of the right upper extremity/hand. 05/23/22 = 75% met GOALS MET 0-20 degrees active R sh flexion. *MET 08/09/21; 0-45 degrees. 04/04/22 = 0-45 degrees 0-20 degrees active R sh extension. *MET 08/09/21; 0-25 degrees. Able to separate x 5 pvc pipes and their joints, when given 7 opportunities, requiring no more than 1 model from therapist. *MET 01/10/22 0-30 degrees active R sh extension. *MET 01/24/22; = 0-30 degrees [place] Hand Goals 1. Sukh will present with increased attention to the right upper extremity, as well as increased functional incorporation of the right upper extremity; this will be evidenced by active incorporation of the right upper extremity/hand with stabilization of objects at TT , 3 to 4 times per week based on family report requiring no more than 1-2 verbal cues per occasion. 04/04/22 = 50% met; min v.c. 2. Sukh will be modified independent with execution of home exercise program (upper extremity and functional activities) with support of family utilizing provided written and visual instructions from therapist. = 50% met - Treatment 2 Descriptor Tone Management. Exercises 7 Descriptor Elbow ext. TB #2 (modified place and hold x 3 sec w/ TB and muscle tapping to facilitate). 2 x 10. Elbow flex. Muscle tapping to facilitate. 2 x 10. 6 Descriptor PROM. Sh abd. ER. Sh abd w/ ER. Finger ext. Wrist all directions. 5 Descriptor Sustained grasp. Wooden dowel. #5 TB resistance . 5 second hold. 1 set of 10 repetitions. Horizontal positioning of cane. Wooden dowel. #5 TB resistance . 5 second hold. 1 set of 10 repetitions. Vertical positioning of cane. 4 Descriptor Sh ROM. TT Sh flex. 1 x 15 AROM. Resisted 1 x 15 TB #1. TT Sh ext. 1 x 15 AROM. Resisted 1 x 15 TB #1. TT Sh hor abd. 1 x 15 AROM. Resisted 1 x 15 TB #1. Sh abd. 1 x 15 AROM. 3 Descriptor Functional problem solving activities. Replication of PVC pattern. x 1. Min support required. Creation/Task break-down - clean-up - Assessment Assessment of Improvement Sukh required min verbal cueing for active incorporation of the right hand; no support was required in today's session for re- positioning of the R hand d/t sustained participation. Min phys support was required for functional problem solving (w/ PVC pipe pattern replication) x 1 trial given PVC pipe tree had tipped over. Sukh was successful w/ seated golfing w / use of small slope x 5 repetitions. Recommend incorporating additional tasks that support functional bimanual coordination of the upper extremities/functional problem solving. Overall, fair session. Sukh would likely benefit from continuing to be exposed to other/additional activities that support incorporation of the right hand/bimanual coordination. Sukh benefits from handling, visual cues and environmental modifications to support motor planning of the right upper extremity. Continued outpatient OT is recommended to address ROM, strength, functional abilities , attention/awareness, bimanual coordination, and functional problem solving, with goal of incorporating right upper extremity in day- to-day life with engagement in functional and meaningful activities. - Plan Therapy Recommendations Continue with Current Program, Advance per Rehabilitation Protocol
--- NOTE | 2022-05-30 15:58 | OT.OP.TRT ---
Visit Care Team Role Provider Type Delfino Epstein MD Attending Provider Physician Primary Care Provider Referring Provider Specialty: Family Practice Address: [address] [place] [address], [id number] Email: [email or web address] Occupational Therapy Treatment Note OT Outpatient Treatment Note - Adult Start: 05/18/21 12:52 Freq: Status: Active Protocol: Document 05/30/22 15:55 AMS (Rec: 05/30/22 15:58 AMS [id number]) OT Outpatient Adult Treatment Note Session Time Visit Start Time 10:30 Visit Stop Time 11:15 Total Visit Minutes 45 Visit Information Plan of Care Dates 04/04/22 - 06/27/22 Insurance Information [facility]; no pre-auth req to annual plan max; max 80/combo Setting Treatment Setting Outpatient Care Visit Type Note Type Treatment Note General Information General Information Patient is 66 year-old male referred to outpatient OT by PCP, Delfino Epstein MD, secondary to generalized weakness. PMH: Significant for Antiphospholipid antibody syndrome; Aphasia; CAD; Cardiac Arrhythmia; CVA involving L MCA territory ; Chronic atrial flutter; Chronic systolic CHF; CAD involving [place] coronary artery; DM; DVT; Essential HTN ; Hemiparesis affectiving dominant side 01/27/15; Hyperlipidemia; NV; Pacemaker; RA; Stenosis of left carotid artery; Systolic heart failure . Patient has been seen here at [facility] outpatient therapy services over the years; he is currently receiving outpatient PT. Patient was d/c in December of 2020. His last fall occurred approx 1-2 months ago on the deck. Patient has R hemishoulder/subluxation sling and R GivMohr Sling; he prefers R randa/subluxation sling; however, he did not come to session w/ sling on. - Subjective Identification Type Name Identification Reconciled With Medical Record Observations Sukh was seen 1:1 for OT. No new concerns were indicated. Anali and her , Elvis, have been primarily overseeing Sukh's execution of exercises in the home (for BACK STAYER, PT, and OT). [ End ] Patient/Caregiver Compliance with Home Good Exercise Program Comment w/ family support - Objective Objective Measurements Please refer to below for progress towards meeting established OT goals. 01/01/22 = Avg 7.0# of force w/ R solar installation technician w/ dynamometer I. = Avg 7.0# of force w/ R solar installation technician w/ dynamometer II. 01/31/22 = he buttoned his shirt by himself this morning (1-handed); he also did shave some of his face (I gave him the razor and he did some of it) Short Term Goals 1. Sukh will be able to position right hand initially on cane vertical/cane horizontally/golf club without physical assistance (x 3 attempts per session), requiring no more than 1-2 verbal cues from therapist, demonstrating improving functional problem solving, attention, and active incorporation of the right upper extremity/hand. 05/30/22 = 75% met GOALS MET 0-20 degrees active R sh flexion. *MET 08/09/21; 0-45 degrees. 04/04/22 = 0-45 degrees 0-20 degrees active R sh extension. *MET 08/09/21; 0-25 degrees. Able to separate x 5 pvc pipes and their joints, when given 7 opportunities, requiring no more than 1 model from therapist. *MET 01/10/22 0-30 degrees active R sh extension. *MET 01/24/22; = 0-30 degrees Correction Goals 1. Sukh will present with increased attention to the right upper extremity, as well as increased functional incorporation of the right upper extremity; this will be evidenced by active incorporation of the right upper extremity/hand with stabilization of objects at TT , 3 to 4 times per week based on family report requiring no more than 1-2 verbal cues per occasion. 04/04/22 = 50% met; min v.c. 2. Sukh will be modified independent with execution of home exercise program (upper extremity and functional activities) with support of family utilizing provided written and visual instructions from therapist. = 50% met - Treatment 2 Descriptor Tone Management. Exercises 7 Descriptor Elbow ext. TB #2 (modified place and hold x 3 sec w/ TB and muscle tapping to facilitate). 2 x 10. Elbow flex. Muscle tapping to facilitate. 2 x 10. 6 Descriptor PROM. Sh abd. ER. Sh abd w/ ER. Finger ext. Wrist all directions. 5 Descriptor Sustained grasp. Wooden dowel. #5 TB resistance . 5 second hold. 1 set of 10 repetitions. Horizontal positioning of cane. Wooden dowel. #5 TB resistance . 5 second hold. 1 set of 10 repetitions. Vertical positioning of cane. 4 Descriptor Sh ROM. TT Sh flex. 1 x 15 AROM. Resisted 1 x 15 TB #1. TT Sh ext. 1 x 15 AROM. Resisted 1 x 15 TB #1. TT Sh hor abd. 1 x 15 AROM. Resisted 1 x 15 TB #1. Sh abd. 1 x 15 AROM. 3 Descriptor Functional problem solving activities. Replication of PVC pattern. x 1. Min support required. Creation/Task break-down - clean-up - Assessment Assessment of Improvement Sukh required min verbal cueing for active incorporation of the right hand; phys assist required w/ obtaining grasp of small bat with all fingers of the right hand. CGA phys support was required x 1 trial given PVC pipe tree had tipped over; Sukh actively incorporated R hand for separation of PVC pipes without cueing. Sukh was successful w/ seated golfing w/ use of small slope x 7 repetitions. Recommend incorporating additional tasks that support functional bimanual coordination of the upper extremities/functional problem solving. Overall, fair session. Sukh would likely benefit from continuing to be exposed to other/additional activities that support incorporation of the right hand/bimanual coordination. Sukh benefits from handling, visual cues and environmental modifications to support motor planning of the right upper extremity. Continued outpatient OT is recommended to address ROM, strength, functional abilities , attention/awareness, bimanual coordination, and functional problem solving, with goal of incorporating right upper extremity in day- to-day life with engagement in functional and meaningful activities. Home Exercise Program Family education was completed . - Plan Therapy Recommendations Continue with Current Program, Advance per Rehabilitation Protocol
--- NOTE | 2022-06-06 09:27 | OT.OP.TRT ---
Visit Care Team Role Provider Type Delfino Epstein MD Attending Provider Physician Primary Care Provider Referring Provider Specialty: Family Practice Address: [address] [place] [address], [id number] Email: [email or web address] Occupational Therapy Treatment Note OT Outpatient Treatment Note - Adult Start: 05/18/21 12:52 Freq: Status: Active Protocol: Document 06/06/22 09:22 AMS (Rec: 06/06/22 09:26 AMS [id number]) OT Outpatient Adult Treatment Note Session Time Visit Start Time 07:30 Visit Stop Time 08:15 Total Visit Minutes 45 Visit Information Plan of Care Dates 04/04/22 - 06/27/22 Insurance Information [facility]; no pre-auth req to annual plan max; max 80/combo Setting Treatment Setting Outpatient Care Visit Type Note Type Treatment Note General Information General Information Patient is 66 year-old male referred to outpatient OT by PCP, Delfino Epstein MD, secondary to generalized weakness. PMH: Significant for Antiphospholipid antibody syndrome; Aphasia; CAD; Cardiac Arrhythmia; CVA involving L MCA territory ; Chronic atrial flutter; Chronic systolic CHF; CAD involving [place] coronary artery; DM; DVT; Essential HTN ; Hemiparesis affectiving dominant side 01/27/15; Hyperlipidemia; [place]; Pacemaker; RA; Stenosis of left carotid artery; Systolic heart failure . Patient has been seen here at [facility] outpatient therapy services over the years; he is currently receiving outpatient PT. Patient was d/c in December of 2020. His last fall occurred approx 1-2 months ago on the deck. Patient has R hemishoulder/subluxation sling and R GivMohr Sling; he prefers R randa/subluxation sling; however, he did not come to session w/ sling on. - Subjective Identification Type Name Identification Reconciled With Medical Record Observations Sukh was accompanied by his , Felicity, to OT treatment session. No new concerns were indicated. Anali and her , Elvis, have been primarily overseeing Sukh's execution of exercises in the home (for SOLUTION DEVELOPER, PT, and OT). [ End ] Patient/Caregiver Compliance with Home Good Exercise Program Comment w/ family support - Objective Objective Measurements Please refer to below for progress towards meeting established OT goals. 01/01/22 = Avg 7.0# of force w/ R cobol application developer w/ dynamometer I. = Avg 7.0# of force w/ R cobol application developer w/ dynamometer II. 01/31/22 = he buttoned his shirt by himself this morning (1-handed); he also did shave some of his face (I gave him the razor and he did some of it) Short Term Goals 1. Sukh will be able to position right hand initially on cane vertical/cane horizontally/golf club without physical assistance (x 3 attempts per session), requiring no more than 1-2 verbal cues from therapist, demonstrating improving functional problem solving, attention, and active incorporation of the right upper extremity/hand. 05/30/22 = 75% met GOALS MET 0-20 degrees active R sh flexion. *MET 08/09/21; 0-45 degrees. 04/04/22 = 0-45 degrees 0-20 degrees active R sh extension. *MET 08/09/21; 0-25 degrees. Able to separate x 5 pvc pipes and their joints, when given 7 opportunities, requiring no more than 1 model from therapist. *MET 01/10/22 0-30 degrees active R sh extension. *MET 01/24/22; = 0-30 degrees Senior Living Goals 1. Sukh will present with increased attention to the right upper extremity, as well as increased functional incorporation of the right upper extremity; this will be evidenced by active incorporation of the right upper extremity/hand with stabilization of objects at TT , 3 to 4 times per week based on family report requiring no more than 1-2 verbal cues per occasion. 04/04/22 = 50% met; min v.c. 2. Sukh will be modified independent with execution of home exercise program (upper extremity and functional activities) with support of family utilizing provided written and visual instructions from therapist. = 50% met - Treatment 2 Descriptor Tone Management. Exercises 7 Descriptor Elbow ext. TB #2 (modified place and hold x 3 sec w/ TB and muscle tapping to facilitate). 2 x 10. Elbow flex. Muscle tapping to facilitate. 2 x 10. 6 Descriptor PROM. Sh abd. ER. Sh abd w/ ER. Finger ext. Wrist all directions. 5 Descriptor Sustained grasp. Wooden dowel. #5 TB resistance . 5 second hold. 1 set of 10 repetitions. Horizontal positioning of cane. Wooden dowel. #5 TB resistance . 5 second hold. 1 set of 10 repetitions. Vertical positioning of cane. 4 Descriptor Sh ROM. TT Sh flex. 1 x 15 AROM. Resisted 1 x 15 TB #1. TT Sh ext. 1 x 15 AROM. Resisted 1 x 15 TB #1. TT Sh hor abd. 1 x 15 AROM. Resisted 1 x 15 TB #1. Sh abd. 1 x 15 AROM. 3 Descriptor Functional problem solving activities. Replication of PVC pattern. x 1. Min support required. Creation/Task break-down - clean-up - Assessment Assessment of Improvement Sukh's right foot is being closely monitored by medical staff/; also , Felicity, is trying to find new tele marketing executive given that his previous physician retired. CGA phys support was required x 1 trial to push the 2 sides of the PVC pipe design together given it couldn't ' reach'; he also required min verbal/visual support for functional problem solving. This may have been d/t therapist distracting him when having conversation w/ his re: concerns/goals. Sukh actively incorporated R hand for separation of PVC pipes without cueing. Sukh was successful w/ seated golfing w/ use of small slope x 5 repetitions. Recommend incorporating additional tasks that support functional bimanual coordination of the upper extremities/functional problem solving. Overall, fair session. Sukh would likely benefit from continuing to be exposed to other/additional activities that support incorporation of the right hand/bimanual coordination. Sukh benefits from handling, visual cues and environmental modifications to support motor planning of the right upper extremity. Continued outpatient OT is recommended to address ROM, strength, functional abilities , attention/awareness, bimanual coordination, and functional problem solving, with goal of incorporating right upper extremity in day- to-day life with engagement in functional and meaningful activities. Home Exercise Program Family education was completed . - Plan Therapy Recommendations Continue with Current Program, Advance per Rehabilitation Protocol
--- NOTE | 2022-06-13 15:30 | OT.OPPN ---
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 (06/13/22) Weakness (06/13/22) OT Progress Note OT Outpatient Treatment Note - Adult Start: 05/18/21 12:52 Freq: Status: Active Protocol: Document 06/13/22 15:30 AMS (Rec: 06/14/22 12:17 AMS [id number]) OT Outpatient Adult Treatment Note Session Time Visit Start Time 08:30 Visit Stop Time 09:15 Total Visit Minutes 45 Visit Information Plan of Care Dates 06/13/22 - 09/05/22 Insurance Information [facility]; no pre-auth req to annual plan max; max 80/combo Setting Treatment Setting Outpatient Care Visit Type Note Type Progress Note General Information General Information Patient is 66 year-old male referred to outpatient OT by PCP, Delfino Epstein MD, secondary to generalized weakness. PMH: Significant for Antiphospholipid antibody syndrome; Aphasia; CAD; Cardiac Arrhythmia; CVA involving L MCA territory ; Chronic atrial flutter; Chronic systolic CHF; CAD involving [place] coronary artery; DM; DVT; Essential HTN ; Hemiparesis affectiving dominant side 01/27/15; Hyperlipidemia; [place]; Pacemaker; RA; Stenosis of left carotid artery; Systolic heart failure . Patient has been seen here at [facility] outpatient therapy services over the years; he is currently receiving outpatient PT. Patient was d/c in December of 2020. His last fall occurred approx 1-2 months ago on the deck. Patient has R hemishoulder/subluxation sling and R GivMohr Sling; he prefers R randa/subluxation sling; however, he did not come to session w/ sling on. - Subjective Identification Type Name Identification Reconciled With Medical Record Observations Sukh was seen 1:1 for OT treatment session. No new concerns were indicated. Anali and her , Elvis, have been primarily overseeing Sukh's execution of exercises in the home (for CUT OFF SAW OPERATOR METAL, PT, and OT). [ End ] Patient/Caregiver Compliance with Home Good Exercise Program Comment w/ family support - Objective Objective Measurements Please refer to below for progress towards meeting established OT goals. 06/13/22= 0-30 degrees R sh abd . -40 degrees R elbow ext. 40 degrees active R elbow flex. 01/01/22 = Avg 7.0# of force w/ R resist coater developer w/ dynamometer I. = Avg 7.0# of force w/ R resist coater developer w/ dynamometer II. 01/31/22 = he buttoned his shirt by himself this morning (1-handed); he also did shave some of his face (I gave him the razor and he did some of it) Short Term Goals GOALS MET 0-20 degrees active R sh flexion. *MET 08/09/21; 0-45 degrees. 04/04/22 = 0-45 degrees . 0-20 degrees active R sh extension. *MET 08/09/21; 0-25 degrees. 06/13/22 = 0-35 degrees. Able to separate x 5 pvc pipes and their joints, when given 7 opportunities, requiring no more than 1 model from therapist. *MET 01/10/22 0-30 degrees active R sh extension. *MET 01/24/22; = 0-30 degrees; 06/13/22 = 0 -35 degrees. Able to position right hand initially on cane vertical/ cane horizontally/golf club without physical assistance (x 3 attempts per session), requiring no more than 1-2 verbal cues from therapist, demonstrating improving functional problem solving, attention, and active incorporation of the right upper extremity/hand. *MET 08/25 Content Strategist Goals 1. Sukh will present with increased attention to the right upper extremity, as well as increased functional incorporation of the right upper extremity; this will be evidenced by active incorporation of the right upper extremity/hand with stabilization of objects at TT , 3 to 4 times per week based on family report requiring no more than 1-2 verbal cues per occasion. 06/13/22 = 50% met; min v.c. 2. Sukh will be modified independent with execution of home exercise program (upper extremity and functional activities) with support of family utilizing provided written and visual instructions from therapist. = 50% met - Treatment 2 Descriptor Tone Management. Exercises 7 Descriptor Elbow ext. TB #2 (modified place and hold x 3 sec w/ TB and muscle tapping to facilitate). 2 x 10. Elbow flex. Muscle tapping to facilitate. 2 x 10. 6 Descriptor PROM. Sh abd. ER. Sh abd w/ ER. Finger ext. Wrist all directions. 5 Descriptor Sustained grasp. Wooden dowel. #5 TB resistance . 5 second hold. 1 set of 10 repetitions. Horizontal positioning of cane. Wooden dowel. #5 TB resistance . 5 second hold. 1 set of 10 repetitions. Vertical positioning of cane. 4 Descriptor Sh ROM. Modified resisted (use of TT). TT Sh flex. 1 x 15 AROM. Resisted 1 x 15 TB #2. TT Sh ext. 1 x 15 AROM. Resisted 1 x 15 TB #2. TT Sh hor abd. 1 x 15 AROM. Resisted 1 x 15 TB #2. Sh abd. 1 x 15 AROM. Resisted 1 x 15 TB #1. 3 Descriptor Functional problem solving activities. Replication of PVC pattern. x 1. Min support required. Creation/Task break-down - clean-up - Assessment Assessment of Improvement Sukh has made some progress with outpatient OT over this last certification period relative to active incorporation of the right hand/upper extremity with engagement in functional/ bimanual activities within treatment session. For instance, he is actively utilizing the right hand for separation of PVC pipes/joints following putting together/ replication of pattern. Therapist has also been able to increase number of repetitions and resistance with TT right upper extremity exercises/modified right upper extremity exercises without need for more and/or longer rest breaks. This suggests increasing activity tolerance. Sukh has been doing quite well with increasing size of swing/force of swing w/ small slope as of late. Recommend incorporating additional tasks that support functional bimanual coordination of the upper extremities/functional problem solving.Sukh would likely benefit from continuing to be exposed to other/ additional activities that support incorporation of the right hand/bimanual coordination. Sukh benefits from handling, visual cues and environmental modifications to support motor planning of the right upper extremity. Continued outpatient OT is recommended to address ROM, strength, functional abilities , attention/awareness, bimanual coordination, and functional problem solving, with goal of incorporating right upper extremity in day- to-day life with engagement in functional and meaningful activities. Home Exercise Program No changes to HEP. - Plan Therapy Recommendations Continue with Current Program, Advance per Rehabilitation Protocol Additional Therapy Recommendations 12 weeks Comment 1-2 times per week Therapeutic Contents Active Range of Motion, Adaptive Equipment Education, Client Education,Cognitive Skills Development,Home Exercise Program,Joint Protection,Manual Therapy, Education,Neurodevelopment Treatment,Self-Care,Stretching /Flexibility Activities, Therapeutic Activities, Therapeutic Exercises, Modalities,Sensory Re- education Additional Areas of Treatment Heat/Cold If you are in agreement with this Plan of Care, please return a signed and dated copy. I have reviewed this Plan of Care and certify that the skilled therapy services above are required to meet the patient?s needs. Physician Signature Date Printed Name and Credentials Clinical Instructor Signature Printed Name and Credentials
--- NOTE | 2022-07-11 15:53 | OT.OP.TRT ---
Visit Care Team Role Provider Type Delfino Epstein MD Attending Provider Physician Primary Care Provider Referring Provider Specialty: Family Practice Address: [address] [place] [address], [id number] Email: [email or web address] Occupational Therapy Treatment Note OT Outpatient Treatment Note - Adult Start: 05/18/21 12:52 Freq: Status: Active Protocol: Document 07/11/22 15:48 AMS (Rec: 07/11/22 15:53 AMS [id number]) OT Outpatient Adult Treatment Note Session Time Visit Start Time 13:30 Visit Stop Time 14:15 Total Visit Minutes 45 Visit Information Plan of Care Dates 06/13/22 - 09/05/22 Insurance Information [facility]; no pre-auth req to annual plan max; max 80/combo Setting Treatment Setting Outpatient Care Visit Type Note Type Treatment Note General Information General Information Patient is 66 year-old male referred to outpatient OT by PCP, Delfino Epstein MD, secondary to generalized weakness. PMH: Significant for Antiphospholipid antibody syndrome; Aphasia; CAD; Cardiac Arrhythmia; CVA involving L MCA territory ; Chronic atrial flutter; Chronic systolic CHF; CAD involving [place] coronary artery; DM; DVT; Essential HTN ; Hemiparesis affectiving dominant side 01/27/15; Hyperlipidemia; DC; Pacemaker; RA; Stenosis of left carotid artery; Systolic heart failure . Patient has been seen here at [facility] outpatient therapy services over the years; he is currently receiving outpatient PT. Patient was d/c in December of 2020. His last fall occurred approx 1-2 months ago on the deck. Patient has R hemishoulder/subluxation sling and R GivMohr Sling; he prefers R randa/subluxation sling; however, he did not come to session w/ sling on. - Subjective Identification Type Name Identification Reconciled With Medical Record Observations Sukh was seen 1:1 for OT treatment session. No new concerns were indicated. Anali and her , Elvis, have been primarily overseeing Sukh's execution of exercises in the home (for STEAM HOIST OPERATOR, PT, and OT). [ End ] Patient/Caregiver Compliance with Home Good Exercise Program Comment w/ family support - Objective Objective Measurements Please refer to below for progress towards meeting established OT goals. 06/13/22= 0-30 degrees R sh abd . -40 degrees R elbow ext. 40 degrees active R elbow flex. 01/01/22 = Avg 7.0# of force w/ R agricultural research technologist w/ dynamometer I. = Avg 7.0# of force w/ R agricultural research technologist w/ dynamometer II. 01/31/22 = he buttoned his shirt by himself this morning (1-handed); he also did shave some of his face (I gave him the razor and he did some of it) Short Term Goals GOALS MET 0-20 degrees active R sh flexion. *MET 08/09/21; 0-45 degrees. 04/04/22 = 0-45 degrees . 0-20 degrees active R sh extension. *MET 08/09/21; 0-25 degrees. 06/13/22 = 0-35 degrees. Able to separate x 5 pvc pipes and their joints, when given 7 opportunities, requiring no more than 1 model from therapist. *MET 01/10/22 0-30 degrees active R sh extension. *MET 01/24/22; = 0-30 degrees; 06/13/22 = 0 -35 degrees. Able to position right hand initially on cane vertical/ cane horizontally/golf club without physical assistance (x 3 attempts per session), requiring no more than 1-2 verbal cues from therapist, demonstrating improving functional problem solving, attention, and active incorporation of the right upper extremity/hand. *MET 08/25 Slitting Machine Operator Helper Goals 1. Sukh will present with increased attention to the right upper extremity, as well as increased functional incorporation of the right upper extremity; this will be evidenced by active incorporation of the right upper extremity/hand with stabilization of objects at TT , 3 to 4 times per week based on family report requiring no more than 1-2 verbal cues per occasion. 06/13/22 = 50% met; min v.c. 2. Sukh will be modified independent with execution of home exercise program (upper extremity and functional activities) with support of family utilizing provided written and visual instructions from therapist. = 50% met - Treatment 2 Descriptor Tone Management. Exercises 7 Descriptor Elbow ext. TB #2 (modified place and hold x 3 sec w/ TB and muscle tapping to facilitate). 2 x 10. Elbow flex. Muscle tapping to facilitate. 2 x 10. 6 Descriptor PROM. Sh abd. ER. Sh abd w/ ER. Finger ext. Wrist all directions. 5 Descriptor Sustained grasp. Wooden dowel. #5 TB resistance . 5 second hold. 1 set of 10 repetitions. Horizontal positioning of cane. Wooden dowel. #5 TB resistance . 5 second hold. 1 set of 10 repetitions. Vertical positioning of cane. 4 Descriptor Sh ROM. Modified resisted (use of TT). TT Sh flex. 1 x 15 AROM. Resisted 1 x 15 TB #2. TT Sh ext. 1 x 15 AROM. Resisted 1 x 15 TB #2. TT Sh hor abd. 1 x 15 AROM. Resisted 1 x 15 TB #2. Sh abd. 1 x 15 AROM. Resisted 1 x 15 TB #1. 3 Descriptor Functional problem solving activities. Replication of PVC pattern. x 1. Min support required. Creation/Task break-down - clean-up - Assessment Assessment of Improvement Active use of R hand to seperate PVC tree parts w/ no v.c. from therapist. Did quite well w/ seated golfing w/ incorporation of small slope. CGA was provided given difficulties attaining golf agricultural research technologist seated relative to right hand. Recommend exploration of activities that support bimanual coordination of the upper extremities and functional problem solving. Sukh benefits from handling, visual cues and environmental modifications to support motor planning of the right upper extremity. Continued outpatient OT is recommended to address ROM, strength, functional abilities, attention/awareness, bimanual coordination, and functional problem solving, with goal of incorporating right upper extremity in day-to-day life with engagement in functional and meaningful activities. - Plan Therapy Recommendations Continue with Current Program, Advance per Rehabilitation Protocol
--- NOTE | 2022-07-18 15:30 | OT.OP.TRT ---
Visit Care Team Role Provider Type Delfino Epstein MD Attending Provider Physician Primary Care Provider Referring Provider Specialty: Family Practice Address: [address] [place] [address], [id number] Email: [email or web address] Occupational Therapy Treatment Note OT Outpatient Treatment Note - Adult Start: 05/18/21 12:52 Freq: Status: Active Protocol: Document 07/18/22 15:30 AMS (Rec: 07/19/22 10:00 AMS [id number]) OT Outpatient Adult Treatment Note Session Time Visit Start Time 13:30 Visit Stop Time 14:15 Total Visit Minutes 45 Visit Information Plan of Care Dates 06/13/22 - 09/05/22 Insurance Information [facility]; no pre-auth req to annual plan max; max 80/combo Setting Treatment Setting Outpatient Care Visit Type Note Type Treatment Note General Information General Information Patient is 66 year-old male referred to outpatient OT by PCP, Delfino Epstein MD, secondary to generalized weakness. PMH: Significant for Antiphospholipid antibody syndrome; Aphasia; CAD; Cardiac Arrhythmia; CVA involving L MCA territory ; Chronic atrial flutter; Chronic systolic CHF; CAD involving [place] coronary artery; DM; DVT; Essential HTN ; Hemiparesis affectiving dominant side 01/27/15; Hyperlipidemia; [place]; Pacemaker; RA; Stenosis of left carotid artery; Systolic heart failure . Patient has been seen here at [facility] outpatient therapy services over the years; he is currently receiving outpatient PT. Patient was d/c in December of 2020. His last fall occurred approx 1-2 months ago on the deck. Patient has R hemishoulder/subluxation sling and R GivMohr Sling; he prefers R randa/subluxation sling; however, he did not come to session w/ sling on. - Subjective Identification Type Name Identification Reconciled With Medical Record Observations Sukh was seen 1:1 for OT treatment session. No new concerns were indicated. Anali and her , Elvis, have been primarily overseeing Sukh's execution of exercises in the home (for STUDIO RECEPTIONIST, PT, and OT). [ End ] Patient/Caregiver Compliance with Home Good Exercise Program Comment w/ family support - Objective Objective Measurements Please refer to below for progress towards meeting established OT goals. 06/13/22= 0-30 degrees R sh abd . -40 degrees R elbow ext. 40 degrees active R elbow flex. 01/01/22 = Avg 7.0# of force w/ R rn critical care w/ dynamometer I. = Avg 7.0# of force w/ R rn critical care w/ dynamometer II. 01/31/22 = he buttoned his shirt by himself this morning (1-handed); he also did shave some of his face (I gave him the razor and he did some of it) Short Term Goals GOALS MET 0-20 degrees active R sh flexion. *MET 08/09/21; 0-45 degrees. 04/04/22 = 0-45 degrees . 0-20 degrees active R sh extension. *MET 08/09/21; 0-25 degrees. 06/13/22 = 0-35 degrees. Able to separate x 5 pvc pipes and their joints, when given 7 opportunities, requiring no more than 1 model from therapist. *MET 01/10/22 0-30 degrees active R sh extension. *MET 01/24/22; = 0-30 degrees; 06/13/22 = 0 -35 degrees. Able to position right hand initially on cane vertical/ cane horizontally/golf club without physical assistance (x 3 attempts per session), requiring no more than 1-2 verbal cues from therapist, demonstrating improving functional problem solving, attention, and active incorporation of the right upper extremity/hand. *MET 08/25 Route Manager Goals 1. Sukh will present with increased attention to the right upper extremity, as well as increased functional incorporation of the right upper extremity; this will be evidenced by active incorporation of the right upper extremity/hand with stabilization of objects at TT , 3 to 4 times per week based on family report requiring no more than 1-2 verbal cues per occasion. 06/13/22 = 50% met; min v.c. 2. Sukh will be modified independent with execution of home exercise program (upper extremity and functional activities) with support of family utilizing provided written and visual instructions from therapist. = 50% met - Treatment 2 Descriptor Tone Management. Exercises 7 Descriptor Elbow ext. TB #2 (modified place and hold x 3 sec w/ TB and muscle tapping to facilitate). 2 x 10. Elbow flex. Muscle tapping to facilitate. 2 x 10. 6 Descriptor PROM. Sh abd. ER. Sh abd w/ ER. Finger ext. Wrist all directions. 5 Descriptor Sustained grasp. Wooden dowel. #5 TB resistance . 5 second hold. 1 set of 10 repetitions. Horizontal positioning of cane. Wooden dowel. #5 TB resistance . 5 second hold. 1 set of 10 repetitions. Vertical positioning of cane. 4 Descriptor Sh ROM. Modified resisted (use of TT). TT Sh flex. 1 x 15 AROM. Resisted 1 x 15 TB #2. TT Sh ext. 1 x 15 AROM. Resisted 1 x 15 TB #2. TT Sh hor abd. 1 x 15 AROM. Resisted 1 x 15 TB #2. Sh abd. 1 x 15 AROM. Resisted 1 x 15 TB #1. 3 Descriptor Functional problem solving activities. Replication of PVC pattern. x 1. Min support required. Creation/Task break-down - clean-up - Assessment Assessment of Improvement Active use of R hand to seperate PVC tree parts w/ no v.c. from therapist. Did quite well w/ seated golfing w/ incorporation of small slope; was able to strike golf ball with increased force to manage large slope (x 3 trials)! Returned to small slope post - x 4 failed attempts w/ larger slope w/ goal of ending treatment session positively. Recommend exploration of activities that support bimanual coordination of the upper extremities and functional problem solving. Sukh benefits from handling, visual cues and environmental modifications to support motor planning of the right upper extremity. Continued outpatient OT is recommended to address ROM, strength, functional abilities, attention/awareness, bimanual coordination, and functional problem solving, with goal of incorporating right upper extremity in day-to-day life with engagement in functional and meaningful activities. - Plan Therapy Recommendations Continue with Current Program, Advance per Rehabilitation Protocol
--- NOTE | 2022-07-25 15:30 | OT.OP.TRT ---
Visit Care Team Role Provider Type Delfino Epstein MD Attending Provider Physician Primary Care Provider Referring Provider Specialty: Family Practice Address: [address] [place] [address], [id number] Email: [email or web address] Therapy Treatment Note OT Outpatient Treatment Note - Adult Start: 05/18/21 12:52 Freq: Status: Active Protocol: Document 07/25/22 15:30 AMS (Rec: 07/26/22 12:03 AMS [id number]) OT Outpatient Adult Treatment Note Session Time Visit Start Time 13:30 Visit Stop Time 14:15 Total Visit Minutes 45 Visit Information Plan of Care Dates 06/13/22 - 09/05/22 Insurance Information [facility]; no pre-auth req to annual plan max; max 80/combo Setting Treatment Setting Outpatient Care Visit Type Note Type Treatment Note General Information General Information Patient is 66 year-old male referred to outpatient OT by PCP, Delfino Epstein MD, secondary to generalized weakness. PMH: Significant for Antiphospholipid antibody syndrome; Aphasia; CAD; Cardiac Arrhythmia; CVA involving L MCA territory ; Chronic atrial flutter; Chronic systolic CHF; CAD involving [place] coronary artery; DM; DVT; Essential HTN ; Hemiparesis affectiving dominant side 01/27/15; Hyperlipidemia; NE; Pacemaker; RA; Stenosis of left carotid artery; Systolic heart failure . Patient has been seen here at [facility] outpatient therapy services over the years; he is currently receiving outpatient PT. Patient was d/c in December of 2020. His last fall occurred approx 1-2 months ago on the deck. Patient has R hemishoulder/subluxation sling and R GivMohr Sling; he prefers R randa/subluxation sling; however, he did not come to session w/ sling on. - Subjective Identification Type Name Identification Reconciled With Medical Record Observations Sukh was seen 1:1 for OT treatment session. No new concerns were indicated. Anali and her , Elvis, have been primarily overseeing Sukh's execution of exercises in the home (for COTTON [employer]OPPER, PT, and OT). [ End ] Patient/Caregiver Compliance with Home Good Exercise Program Comment w/ family support - Objective Objective Measurements Please refer to below for progress towards meeting established OT goals. 06/13/22= 0-30 degrees R sh abd . -40 degrees R elbow ext. 40 degrees active R elbow flex. 01/01/22 = Avg 7.0# of force w/ R numerical control operator w/ dynamometer I. = Avg 7.0# of force w/ R numerical control operator w/ dynamometer II. 01/31/22 = he buttoned his shirt by himself this morning (1-handed); he also did shave some of his face (I gave him the razor and he did some of it) Short Term Goals GOALS MET 0-20 degrees active R sh flexion. *MET 08/09/21; 0-45 degrees. 04/04/22 = 0-45 degrees . 0-20 degrees active R sh extension. *MET 08/09/21; 0-25 degrees. 06/13/22 = 0-35 degrees. Able to separate x 5 pvc pipes and their joints, when given 7 opportunities, requiring no more than 1 model from therapist. *MET 01/10/22 0-30 degrees active R sh extension. *MET 01/24/22; = 0-30 degrees; 06/13/22 = 0 -35 degrees. Able to position right hand initially on cane vertical/ cane horizontally/golf club without physical assistance (x 3 attempts per session), requiring no more than 1-2 verbal cues from therapist, demonstrating improving functional problem solving, attention, and active incorporation of the right upper extremity/hand. *MET 08/25 Referral Management Liaison Goals 1. Sukh will present with increased attention to the right upper extremity, as well as increased functional incorporation of the right upper extremity; this will be evidenced by active incorporation of the right upper extremity/hand with stabilization of objects at TT , 3 to 4 times per week based on family report requiring no more than 1-2 verbal cues per occasion. 06/13/22 = 50% met; min v.c. 2. Sukh will be modified independent with execution of home exercise program (upper extremity and functional activities) with support of family utilizing provided written and visual instructions from therapist. = 50% met - Treatment 2 Descriptor Tone Management. Exercises 7 Descriptor Elbow ext. TB #2 (modified place and hold x 3 sec w/ TB and muscle tapping to facilitate). 2 x 10. Elbow flex. Muscle tapping to facilitate. 2 x 10. 6 Descriptor PROM. Sh abd. ER. Sh abd w/ ER. Finger ext. Wrist all directions. 5 Descriptor Sustained grasp. Wooden dowel. #5 TB resistance . 5 second hold. 1 set of 10 repetitions. Horizontal positioning of cane. Wooden dowel. #5 TB resistance . 5 second hold. 1 set of 10 repetitions. Vertical positioning of cane. 4 Descriptor Sh ROM. Modified resisted (use of TT). TT Sh flex. 1 x 15 AROM. Resisted 1 x 15 TB #2. TT Sh ext. 1 x 15 AROM. Resisted 1 x 15 TB #2. TT Sh hor abd. 1 x 15 AROM. Resisted 1 x 15 TB #2. Sh abd. 1 x 15 AROM. Resisted 1 x 15 TB #1. 3 Descriptor Functional problem solving activities. Replication of PVC pattern. x 1. Min support required. Creation/Task break-down - clean-up - Assessment Assessment of Improvement Active use of R hand to seperate PVC tree parts w/ no v.c. from therapist. Did well w/ seated golfing w/ incorporation of small slope; based on inconsistency w/ successful maneuvering of small slope, did not transition to large slope. Indicated disinterest in puzzles; will need to explore alternative options for activities to support bimanual coordination of the upper extremities and functional problem solving. Was observed to re-position L hand/shake L hand w/ golfing on several occasions indicating discomfort; able to adjust to complete activity. Will need to monitor in future sessions. Overall, fair session. Sukh benefits from handling, visual cues and environmental modifications to support motor planning of the right upper extremity. Continued outpatient OT is recommended to address ROM, strength, functional abilities, attention/awareness, bimanual coordination, and functional problem solving, with goal of incorporating right upper extremity in day-to-day life with engagement in functional and meaningful activities. - Plan Therapy Recommendations Continue with Current Program, Advance per Rehabilitation Protocol
--- NOTE | 2022-08-01 15:30 | OT.OP.TRT ---
Visit Care Team Role Provider Type Delfino Epstein MD Attending Provider Physician Primary Care Provider Referring Provider Specialty: Family Practice Address: [address] [place] [address], [id number] Email: [email or web address] Occupational Therapy Treatment Note OT Outpatient Treatment Note - Adult Start: 05/18/21 12:52 Freq: Status: Active Protocol: Document 08/01/22 15:30 AMS (Rec: 08/02/22 13:26 AMS [id number]) OT Outpatient Adult Treatment Note Session Time Visit Start Time 14:30 Visit Stop Time 15:15 Total Visit Minutes 45 Visit Information Plan of Care Dates 06/13/22 - 09/05/22 Insurance Information [facility]; no pre-auth req to annual plan max; max 80/combo Setting Treatment Setting Outpatient Care Visit Type Note Type Treatment Note General Information General Information Patient is 66 year-old male referred to outpatient OT by PCP, Delfino Epstein MD, secondary to generalized weakness. PMH: Significant for Antiphospholipid antibody syndrome; Aphasia; CAD; Cardiac Arrhythmia; CVA involving L MCA territory ; Chronic atrial flutter; Chronic systolic CHF; CAD involving [place] coronary artery; DM; DVT; Essential HTN ; Hemiparesis affectiving dominant side 01/27/15; Hyperlipidemia; CT; Pacemaker; RA; Stenosis of left carotid artery; Systolic heart failure . Patient has been seen here at [facility] outpatient therapy services over the years; he is currently receiving outpatient PT. Patient was d/c in December of 2020. His last fall occurred approx 1-2 months ago on the deck. Patient has R hemishoulder/subluxation sling and R GivMohr Sling; he prefers R randa/subluxation sling; however, he did not come to session w/ sling on. - Subjective Identification Type Name Identification Reconciled With Medical Record Observations Sukh was seen 1:1 for OT treatment session. No new concerns were indicated. Anali and her , Elvis, have been primarily overseeing Sukh's execution of exercises in the home (for LAB ANIMAL TECHNICIAN, PT, and OT). [ End ] Patient/Caregiver Compliance with Home Good Exercise Program Comment w/ family support - Objective Objective Measurements Please refer to below for progress towards meeting established OT goals. 06/13/22= 0-30 degrees R sh abd . -40 degrees R elbow ext. 40 degrees active R elbow flex. 01/01/22 = Avg 7.0# of force w/ R dealership manager w/ dynamometer I. = Avg 7.0# of force w/ R dealership manager w/ dynamometer II. 01/31/22 = he buttoned his shirt by himself this morning (1-handed); he also did shave some of his face (I gave him the razor and he did some of it) Short Term Goals GOALS MET 0-20 degrees active R sh flexion. *MET 08/09/21; 0-45 degrees. 04/04/22 = 0-45 degrees . 0-20 degrees active R sh extension. *MET 08/09/21; 0-25 degrees. 06/13/22 = 0-35 degrees. Able to separate x 5 pvc pipes and their joints, when given 7 opportunities, requiring no more than 1 model from therapist. *MET 01/10/22 0-30 degrees active R sh extension. *MET 01/24/22; = 0-30 degrees; 06/13/22 = 0 -35 degrees. Able to position right hand initially on cane vertical/ cane horizontally/golf club without physical assistance (x 3 attempts per session), requiring no more than 1-2 verbal cues from therapist, demonstrating improving functional problem solving, attention, and active incorporation of the right upper extremity/hand. *MET 08/25 Dry Wall Nailer Goals 1. Sukh will present with increased attention to the right upper extremity, as well as increased functional incorporation of the right upper extremity; this will be evidenced by active incorporation of the right upper extremity/hand with stabilization of objects at TT , 3 to 4 times per week based on family report requiring no more than 1-2 verbal cues per occasion. 08/01/22 = 50% met; min v.c. 2. Sukh will be modified independent with execution of home exercise program (upper extremity and functional activities) with support of family utilizing provided written and visual instructions from therapist. = 50% met - Treatment 2 Descriptor Tone Management. Exercises 7 Descriptor Elbow ext. TB #2 (modified place and hold x 3 sec w/ TB and muscle tapping to facilitate). 2 x 10. Elbow flex. Muscle tapping to facilitate. 2 x 10. 6 Descriptor PROM. Sh abd. ER. Sh abd w/ ER. Finger ext. Wrist all directions. 5 Descriptor Sustained grasp. Wooden dowel. #5 TB resistance . 5 second hold. 1 set of 10 repetitions. Horizontal positioning of cane. Wooden dowel. #5 TB resistance . 5 second hold. 1 set of 10 repetitions. Vertical positioning of cane. 4 Descriptor Sh ROM. Modified resisted (use of TT). TT Sh flex. 1 x 15 AROM. Resisted 1 x 15 TB #2. TT Sh ext. 1 x 15 AROM. Resisted 1 x 15 TB #2. TT Sh hor abd. 1 x 15 AROM. Resisted 1 x 15 TB #2. Sh abd. 1 x 15 AROM. Resisted 1 x 15 TB #1. 3 Descriptor Functional problem solving activities. Replication of PVC pattern. x 1. Min support required. Creation/Task break-down - clean-up - Assessment Assessment of Improvement Sukh self-initiated choosing PVC tree pattern to replicate without cueing! (+) interest in replicating more complex structure; min phys assist to complete/functional problem solving. Poor stabilization/ balance of structure observed w/ unilateral side completion/ middle component. Structure would have likely been more stable with side(s) created first prior to middle component. Did well w/ seated golfing w/ incorporation of small slope; based on inconsistency w/ successful maneuvering of small slope, did not transition to large slope. Will need to explore alternative options for activities to support bimanual coordination of the upper extremities and functional problem solving. Was observed to re-position L hand/shake L hand w/ golfing on 2 different occasions indicating discomfort; able to adjust to complete activity. Will need to monitor in future sessions. Overall, fair session. Sukh benefits from handling, visual cues and environmental modifications to support motor planning of the right upper extremity. Continued outpatient OT is recommended to address ROM, strength, functional abilities, attention/awareness, bimanual coordination, and functional problem solving, with goal of incorporating right upper extremity in day-to-day life with engagement in functional and meaningful activities. - Plan Therapy Recommendations Continue with Current Program, Advance per Rehabilitation Protocol
--- NOTE | 2022-08-08 14:15 | OT.OP.TRT ---
Visit Care Team Role Provider Type Delfino Epstein MD Attending Provider Physician Primary Care Provider Referring Provider Specialty: Family Practice Address: [address] [place] [address], [id number] Email: [email or web address] Occupational Therapy Treatment Note OT Outpatient Treatment Note - Adult Start: 05/18/21 12:52 Freq: Status: Active Protocol: Document 08/08/22 14:15 AMS (Rec: 08/09/22 13:54 AMS [id number]) OT Outpatient Adult Treatment Note Session Time Visit Start Time 12:30 Visit Stop Time 13:15 Total Visit Minutes 45 Visit Information Plan of Care Dates 06/13/22 - 09/05/22 Insurance Information [facility]; no pre-auth req to annual plan max; max 80/combo Setting Treatment Setting Outpatient Care Visit Type Note Type Treatment Note General Information General Information Patient is 66 year-old male referred to outpatient OT by PCP, Delfino Epstein MD, secondary to generalized weakness. PMH: Significant for Antiphospholipid antibody syndrome; Aphasia; CAD; Cardiac Arrhythmia; CVA involving L MCA territory ; Chronic atrial flutter; Chronic systolic CHF; CAD involving [place] coronary artery; DM; DVT; Essential HTN ; Hemiparesis affectiving dominant side 01/27/15; Hyperlipidemia; [place]; Pacemaker; RA; Stenosis of left carotid artery; Systolic heart failure . Patient has been seen here at [facility] outpatient therapy services over the years; he is currently receiving outpatient PT. Patient was d/c in December of 2020. His last fall occurred approx 1-2 months ago on the deck. Patient has R hemishoulder/subluxation sling and R GivMohr Sling; he prefers R randa/subluxation sling; however, he did not come to session w/ sling on. - Subjective Identification Type Name Identification Reconciled With Medical Record Observations Sukh was seen 1:1 for OT treatment session. No new concerns were indicated. Anali and her , Elvis, have been primarily overseeing Sukh's execution of exercises in the home (for JAVA SOLUTIONS ARCHITECT, PT, and OT). [ End ] Patient/Caregiver Compliance with Home Good Exercise Program Comment w/ family support - Objective Objective Measurements Please refer to below for progress towards meeting established OT goals. 06/13/22= 0-30 degrees R sh abd . -40 degrees R elbow ext. 40 degrees active R elbow flex. 01/01/22 = Avg 7.0# of force w/ R machine i trimmer w/ dynamometer I. = Avg 7.0# of force w/ R machine i trimmer w/ dynamometer II. 01/31/22 = he buttoned his shirt by himself this morning (1-handed); he also did shave some of his face (I gave him the razor and he did some of it) Short Term Goals GOALS MET 0-20 degrees active R sh flexion. *MET 08/09/21; 0-45 degrees. 04/04/22 = 0-45 degrees . 0-20 degrees active R sh extension. *MET 08/09/21; 0-25 degrees. 06/13/22 = 0-35 degrees. Able to separate x 5 pvc pipes and their joints, when given 7 opportunities, requiring no more than 1 model from therapist. *MET 01/10/22 0-30 degrees active R sh extension. *MET 01/24/22; = 0-30 degrees; 06/13/22 = 0 -35 degrees. Able to position right hand initially on cane vertical/ cane horizontally/golf club without physical assistance (x 3 attempts per session), requiring no more than 1-2 verbal cues from therapist, demonstrating improving functional problem solving, attention, and active incorporation of the right upper extremity/hand. *MET 08/25 Manufacturing Storeperson Goals 1. Sukh will present with increased attention to the right upper extremity, as well as increased functional incorporation of the right upper extremity; this will be evidenced by active incorporation of the right upper extremity/hand with stabilization of objects at TT , 3 to 4 times per week based on family report requiring no more than 1-2 verbal cues per occasion. 08/01/22 = 50% met; min v.c. 2. Sukh will be modified independent with execution of home exercise program (upper extremity and functional activities) with support of family utilizing provided written and visual instructions from therapist. = 50% met - Treatment 2 Descriptor Tone Management. Exercises 7 Descriptor Elbow ext. TB #2 (modified place and hold x 3 sec w/ TB and muscle tapping to facilitate). 2 x 10. Elbow flex. Muscle tapping to facilitate. 2 x 10. 6 Descriptor PROM. Sh abd. ER. Sh abd w/ ER. Finger ext. Wrist all directions. 5 Descriptor Sustained grasp. Wooden dowel. #5 TB resistance . 5 second hold. 1 set of 10 repetitions. Horizontal positioning of cane. Wooden dowel. #5 TB resistance . 5 second hold. 1 set of 10 repetitions. Vertical positioning of cane. 4 Descriptor Sh ROM. Modified resisted (use of TT). TT Sh flex. 1 x 15 AROM. Resisted 1 x 15 TB #2. TT Sh ext. 1 x 15 AROM. Resisted 1 x 15 TB #2. TT Sh hor abd. 1 x 15 AROM. Resisted 1 x 15 TB #2. Sh abd. 1 x 15 AROM. Resisted 1 x 15 TB #1. 3 Descriptor Functional problem solving activities. Replication of PVC pattern. x 1. Min support required. Creation/Task break-down - clean-up - Assessment Assessment of Improvement Encouraged to choose structure to replicate; required assist to identify error and correct error w/ replication of structure. Did well w/ seated golfing w/ incorporation of small slope; based on inconsistency w/ successful maneuvering of small slope, did not transition to large slope. Will need to explore alternative options for activities to support bimanual coordination of the upper extremities and functional problem solving. Was observed to re-position L hand/shake L hand w/ golfing on 2 different occasions indicating discomfort; able to adjust to complete activity. Will need to monitor in future sessions. Overall, fair session. Luz benefits from handling, visual cues and environmental modifications to support motor planning of the right upper extremity. Continued outpatient OT is recommended to address ROM, strength, functional abilities, attention/awareness, bimanual coordination, and functional problem solving, with goal of incorporating right upper extremity in day-to-day life with engagement in functional and meaningful activities. - Plan Therapy Recommendations Continue with Current Program, Advance per Rehabilitation Protocol
--- NOTE | 2022-08-15 14:05 | OT.OP.TRT ---
Visit Care Team Role Provider Type Delfino Epstein MD Attending Provider Physician Primary Care Provider Referring Provider Specialty: Family Practice Address: [address] [place] [address], [id number] Email: [email or web address] Occupational Therapy Treatment Note OT Outpatient Treatment Note - Adult Start: 05/18/21 12:52 Freq: Status: Active Protocol: Document 08/15/22 13:55 AMS (Rec: 08/15/22 14:05 AMS [id number]) OT Outpatient Adult Treatment Note Session Time Visit Start Time 12:30 Visit Stop Time 13:15 Total Visit Minutes 45 Visit Information Plan of Care Dates 06/13/22 - 09/05/22 Insurance Information [facility]; no pre-auth req to annual plan max; max 80/combo Setting Treatment Setting Outpatient Care Visit Type Note Type Treatment Note General Information General Information Patient is 66 year-old male referred to outpatient OT by PCP, Delfino Epstein MD, secondary to generalized weakness. PMH: Significant for Antiphospholipid antibody syndrome; Aphasia; CAD; Cardiac Arrhythmia; CVA involving L MCA territory ; Chronic atrial flutter; Chronic systolic CHF; CAD involving [place] coronary artery; DM; DVT; Essential HTN ; Hemiparesis affectiving dominant side 01/27/15; Hyperlipidemia; [place]; Pacemaker; RA; Stenosis of left carotid artery; Systolic heart failure . Patient has been seen here at [facility] outpatient therapy services over the years; he is currently receiving outpatient PT. Patient was d/c in December of 2020. His last fall occurred approx 1-2 months ago on the deck. Patient has R hemishoulder/subluxation sling and R GivMohr Sling; he prefers R randa/subluxation sling; however, he did not come to session w/ sling on. - Subjective Identification Type Name Identification Reconciled With Medical Record Observations Sukh was seen 1:1 for OT treatment session. No new concerns were indicated. Anali and her , Elvis, have been primarily overseeing Sukh's execution of exercises in the home (for GENERAL DISTILLERY WORKER, PT, and OT). [ End ] Patient/Caregiver Compliance with Home Good Exercise Program Comment w/ family support - Objective Objective Measurements Please refer to below for progress towards meeting established OT goals. 06/13/22= 0-30 degrees R sh abd . -40 degrees R elbow ext. 40 degrees active R elbow flex. 01/01/22 = Avg 7.0# of force w/ R crusher wet ground mica w/ dynamometer I. = Avg 7.0# of force w/ R crusher wet ground mica w/ dynamometer II. 01/31/22 = he buttoned his shirt by himself this morning (1-handed); he also did shave some of his face (I gave him the razor and he did some of it) Short Term Goals GOALS MET 0-20 degrees active R sh flexion. *MET 08/09/21; 0-45 degrees. 04/04/22 = 0-45 degrees . 0-20 degrees active R sh extension. *MET 08/09/21; 0-25 degrees. 06/13/22 = 0-35 degrees. Able to separate x 5 pvc pipes and their joints, when given 7 opportunities, requiring no more than 1 model from therapist. *MET 01/10/22 0-30 degrees active R sh extension. *MET 01/24/22; = 0-30 degrees; 06/13/22 = 0 -35 degrees. Able to position right hand initially on cane vertical/ cane horizontally/golf club without physical assistance (x 3 attempts per session), requiring no more than 1-2 verbal cues from therapist, demonstrating improving functional problem solving, attention, and active incorporation of the right upper extremity/hand. *MET 08/25 Aircraft Electrical Systems Specialist Goals 1. Sukh will present with increased attention to the right upper extremity, as well as increased functional incorporation of the right upper extremity; this will be evidenced by active incorporation of the right upper extremity/hand with stabilization of objects at TT , 3 to 4 times per week based on family report requiring no more than 1-2 verbal cues per occasion. 08/01/22 = 50% met; min v.c. 2. Sukh will be modified independent with execution of home exercise program (upper extremity and functional activities) with support of family utilizing provided written and visual instructions from therapist. = 50% met - Treatment 2 Descriptor Tone Management. Exercises 7 Descriptor Elbow ext. TB #2 (modified place and hold x 3 sec w/ TB and muscle tapping to facilitate). 2 x 10. Elbow flex. Muscle tapping to facilitate. 2 x 10. 6 Descriptor PROM. Sh abd. ER. Sh abd w/ ER. Finger ext. Wrist all directions. 5 Descriptor Sustained grasp. Wooden dowel. #5 TB resistance . 5 second hold. 1 set of 10 repetitions. Horizontal positioning of cane. Wooden dowel. #5 TB resistance . 5 second hold. 1 set of 10 repetitions. Vertical positioning of cane. 4 Descriptor Sh ROM. Modified resisted (use of TT). TT Sh flex. 1 x 15 AROM. Resisted 1 x 15 TB #2. TT Sh ext. 1 x 15 AROM. Resisted 1 x 15 TB #2. TT Sh hor abd. 1 x 15 AROM. Resisted 1 x 15 TB #2. Sh abd. 1 x 15 AROM. Resisted 1 x 15 TB #2. 3 Descriptor Functional problem solving activities. Replication of PVC pattern. x 1. Min support required. Creation/Task break-down - clean-up 2 Descriptor Resisted L thumb abd. Resistance provided by therapist. 2 x 10. - Assessment Assessment of Improvement Encouraged to choose structure to replicate w/ PVC pipes; required assist to identify errors x 2 and correct errors to support replication of structure. Did quite well w/ seated golfing w/ incorporation of small slope. Did not trial seated golfing w / large slope; based on observed strength w/ striking golf ball seated, recommend trialing w/ larger/more difficult slope at time of next treatment session. Will need to explore alternative options for activities to support bimanual coordination of the upper extremities and functional problem solving. Was observed to re-position L hand w/ golfing on 2 different occasions indicating discomfort; able to adjust to complete activity. Will need to monitor in future sessions. Hyperextension observed of IPJ of L thumb; joint deformities of multiple digits of the left hand likely d/t arthritis. Is receiving arthritis medication (via shot ). Overall, fair session. Sukh benefits from handling, visual cues and environmental modifications to support motor planning of the right upper extremity. Continued outpatient OT is recommended to address ROM, strength, functional abilities, attention/awareness, bimanual coordination, and functional problem solving, with goal of incorporating right upper extremity in day-to-day life with engagement in functional and meaningful activities. - Plan Therapy Recommendations Continue with Current Program, Advance per Rehabilitation Protocol
--- NOTE | 2022-08-22 15:48 | OT.OP.TRT ---
Visit Care Team Role Provider Type Delfino Epstein MD Attending Provider Physician Primary Care Provider Referring Provider Specialty: Family Practice Address: [address] [place] [address], [phone] Email: [email or web address] Therapy Treatment Note OT Outpatient Treatment Note - Adult Start: 05/18/21 12:52 Freq: Status: Active Protocol: Document 08/22/22 15:42 AMS (Rec: 08/22/22 15:48 AMS [id number]) OT Outpatient Adult Treatment Note Session Time Visit Start Time 12:30 Visit Stop Time 13:15 Total Visit Minutes 45 Visit Information Plan of Care Dates 06/13/22 - 09/05/22 Insurance Information [facility]; no pre-auth req to annual plan max; max 80/combo Setting Treatment Setting Outpatient Care Visit Type Note Type Treatment Note General Information General Information Patient is 66 year-old male referred to outpatient OT by PCP, Delfino Epstein MD, secondary to generalized weakness. PMH: Significant for Antiphospholipid antibody syndrome; Aphasia; CAD; Cardiac Arrhythmia; CVA involving L MCA territory ; Chronic atrial flutter; Chronic systolic CHF; CAD involving [place] coronary artery; DM; DVT; Essential HTN ; Hemiparesis affectiving dominant side 01/27/15; Hyperlipidemia; UT; Pacemaker; RA; Stenosis of left carotid artery; Systolic heart failure . Patient has been seen here at [facility] outpatient therapy services over the years; he is currently receiving outpatient PT. Patient was d/c in December of 2020. His last fall occurred approx 1-2 months ago on the deck. Patient has R hemishoulder/subluxation sling and R GivMohr Sling; he prefers R randa/subluxation sling; however, he did not come to session w/ sling on. - Subjective Identification Type Name Identification Reconciled With Medical Record Observations Sukh was seen 1:1 for OT treatment session. No new concerns were indicated. Anali and her , Elvis, have been primarily overseeing Sukh's execution of exercises in the home (for IMPORT DISPATCHER, PT, and OT). [ End ] Patient/Caregiver Compliance with Home Good Exercise Program Comment w/ family support - Objective Objective Measurements Please refer to below for progress towards meeting established OT goals. 06/13/22= 0-30 degrees R sh abd . -40 degrees R elbow ext. 40 degrees active R elbow flex. 01/01/22 = Avg 7.0# of force w/ R top lift and automatic window repairer w/ dynamometer I. = Avg 7.0# of force w/ R top lift and automatic window repairer w/ dynamometer II. 01/31/22 = he buttoned his shirt by himself this morning (1-handed); he also did shave some of his face (I gave him the razor and he did some of it) Short Term Goals GOALS MET 0-20 degrees active R sh flexion. *MET 08/09/21; 0-45 degrees. 04/04/22 = 0-45 degrees . 0-20 degrees active R sh extension. *MET 08/09/21; 0-25 degrees. 06/13/22 = 0-35 degrees. Able to separate x 5 pvc pipes and their joints, when given 7 opportunities, requiring no more than 1 model from therapist. *MET 01/10/22 0-30 degrees active R sh extension. *MET 01/24/22; = 0-30 degrees; 06/13/22 = 0 -35 degrees. Able to position right hand initially on cane vertical/ cane horizontally/golf club without physical assistance (x 3 attempts per session), requiring no more than 1-2 verbal cues from therapist, demonstrating improving functional problem solving, attention, and active incorporation of the right upper extremity/hand. *MET 08/25 Drug And Alcohol Counsellor Goals 1. Sukh will present with increased attention to the right upper extremity, as well as increased functional incorporation of the right upper extremity; this will be evidenced by active incorporation of the right upper extremity/hand with stabilization of objects at TT , 3 to 4 times per week based on family report requiring no more than 1-2 verbal cues per occasion. 08/22/22 = 50% met; min v.c. 2. Sukh will be modified independent with execution of home exercise program (upper extremity and functional activities) with support of family utilizing provided written and visual instructions from therapist. 08/22/22 = 50% met - Treatment 2 Descriptor Tone Management. Exercises 7 Descriptor Elbow ext. TB #3 (modified place and hold x 3 sec w/ TB and muscle tapping to facilitate). 2 x 10. Elbow flex. Muscle tapping to facilitate. 2 x 10. 6 Descriptor PROM. Sh abd. ER. Sh abd w/ ER. Finger ext. Wrist all directions. 5 Descriptor Sustained grasp. Wooden dowel. #5 TB resistance . 5 second hold. 1 set of 10 repetitions. Horizontal positioning of cane. Wooden dowel. #5 TB resistance . 5 second hold. 1 set of 10 repetitions. Vertical positioning of cane. 4 Descriptor Sh ROM. Modified resisted (use of TT). TT Sh flex. 1 x 15 AROM. Resisted 1 x 15 TB #3. TT Sh ext. 1 x 15 AROM. Resisted 1 x 15 TB #3. TT Sh hor abd. 1 x 15 AROM. Resisted 1 x 15 TB #3. Sh abd. 1 x 15 AROM. Resisted 1 x 15 TB #3. 3 Descriptor Functional problem solving activities. Replication of PVC pattern x 1 . Min phys assist provided. Creation/Task break-down - clean-up 2 Descriptor Resisted L thumb abd. Resistance provided by therapist. 2 x 10. - Assessment Assessment of Improvement Encouraged to choose structure to replicate w/ PVC pipes; required assist to identify x 1 error and phys assist to strengthen 'corner'. Did quite well w/ seated golfing w/ incorporation of small slope. Did not trial seated golfing w / large slope; based on observed strength w/ striking golf ball seated, recommend trialing w/ larger/more difficult slope at time of next treatment session. Will need to explore alternative options for activities to support bimanual coordination of the upper extremities and functional problem solving. 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 Is receiving arthritis medication (via shot). Overall , fair session. Sukh benefits from handling, visual cues and environmental modifications to support motor planning of the right upper extremity. Continued outpatient OT is recommended to address ROM, strength, functional abilities, attention/awareness, bimanual coordination, and functional problem solving, with goal of incorporating right upper extremity in day-to-day life with engagement in functional and meaningful activities. Home Exercise Program No changes to HEP. - Plan Therapy Recommendations Continue with Current Program, Advance per Rehabilitation Protocol
--- NOTE | 2022-11-07 14:42 | OT.OPPN ---
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 (11/07/22) Weakness (11/07/22) OT Progress Note OT Outpatient Treatment Note - Adult Start: 05/18/21 12:52 Freq: Status: Active Protocol: Document 11/07/22 14:27 AMS (Rec: 11/07/22 14:42 AMS [id number]) OT Outpatient Adult Treatment Note Session Time Visit Start Time 12:30 Visit Stop Time 13:15 Total Visit Minutes 45 Visit Information Plan of Care Dates 11/07/22 - 01/16/23 Insurance Information [facility]; no pre-auth req to annual plan max; max 80/combo Setting Treatment Setting Outpatient Care Visit Type Note Type Progress Note General Information General Information Patient is 66 year-old male referred to outpatient OT by PCP, Delfino Epstein MD, secondary to generalized weakness. PMH: Significant for Antiphospholipid antibody syndrome; Aphasia; CAD; Cardiac Arrhythmia; CVA involving L MCA territory ; Chronic atrial flutter; Chronic systolic CHF; CAD involving [place] coronary artery; DM; DVT; Essential HTN ; Hemiparesis affectiving dominant side 01/27/15; Hyperlipidemia; [place]; Pacemaker; RA; Stenosis of left carotid artery; Systolic heart failure . Patient has been seen here at [facility] outpatient therapy services over the years; he is currently receiving outpatient PT. Patient was d/c in December of 2020. His last fall occurred approx 1-2 months ago on the deck. Patient has R hemishoulder/subluxation sling and R GivMohr Sling; he prefers R randa/subluxation sling; however, he did not come to session w/ sling on. - Subjective Identification Type Name Identification Reconciled With Medical Record Observations Sukh was seen 1:1 for OT treatment session. No new concerns were indicated. Anali and her , Elvis, have been primarily overseeing Sukh's execution of exercises in the home (for OUTSIDE SOLAR SALES CONSULTANT, PT, and OT). [ End ] Patient/Caregiver Compliance with Home Good Exercise Program Comment w/ family support - Objective Objective Measurements Please refer to below for progress towards meeting established OT goals. 11/07/22 = 90 degrees passive R sh flex and R sh abd available . 01/01/22 = Avg 7.0# of force w/ R meat pumper w/ dynamometer I. = avg 7.0# of force w/ R meat pumper dynamometer I; avg 5.0# of force w/ R lateral pinch 01/31/22 = he buttoned his shirt by himself this morning (1-handed); he also did shave some of his face (I gave him the razor and he did some of it) Short Term Goals 1. 0-35 degrees active R sh extension. GOALS MET -40 degrees passive R elbow ext. 11/07/22 0-30 degrees active R sh abd. *11/07/22 (modified blocking into randa-pattern) 0-20 degrees active R sh flexion. *MET 08/09/21; 0-45 degrees. 04/04/22 = 0-45 degrees . 11/07/22 = 0-45 degrees w/ typical randa pattern 0-20 degrees active R sh extension. *MET 08/09/21; 0-25 degrees. 06/13/22 = 0-35 degrees. 11/07/22 = 0-25 degrees . Able to separate x 5 pvc pipes and their joints, when given 7 opportunities, requiring no more than 1 model from therapist. *MET 01/10/22 Able to position right hand initially on cane vertical/ cane horizontally/golf club without physical assistance (x 3 attempts per session), requiring no more than 1-2 verbal cues from therapist, demonstrating improving functional problem solving, attention, and active incorporation of the right upper extremity/hand. *MET 08/25 Mix Maker Goals 1. Sukh will present with increased attention to the right upper extremity, as well as increased functional incorporation of the right upper extremity; this will be evidenced by active incorporation of the right upper extremity/hand with stabilization of objects at TT , 3 to 4 times per week based on family report requiring no more than 1-2 verbal cues per occasion. 11/07/22 = 50% met; min v.c. 2. Sukh will be modified independent with execution of home exercise program (upper extremity and functional activities) with support of family utilizing provided written and visual instructions from therapist. = 50% met - Treatment 2 Descriptor Tone Management. Exercises 7 Descriptor Elbow ext. TB #3 (modified place and hold x 3 sec w/ TB and muscle tapping to facilitate). 2 x 10. Elbow flex. Muscle tapping to facilitate. 2 x 10. 6 Descriptor PROM. Sh abd. ER. Sh abd w/ ER. Finger ext. Wrist all directions. 5 Descriptor Sustained grasp. Wooden dowel. #5 TB resistance . 5 second hold. 1 set of 10 repetitions. Horizontal positioning of cane. Wooden dowel. #5 TB resistance . 5 second hold. 1 set of 10 repetitions. Vertical positioning of cane. 4 Descriptor Sh ROM. Modified resisted (use of TT). TT Sh flex. 1 x 15 AROM. Resisted 1 x 15 TB #3. TT Sh ext. 1 x 15 AROM. Resisted 1 x 15 TB #3. TT Sh hor abd. 1 x 15 AROM. Resisted 1 x 15 TB #3. Sh abd. 1 x 15 AROM. Resisted 1 x 15 TB #3. 3 Descriptor Functional problem solving activities. Replication of PVC pattern x 1 . Creation/Task break-down - clean-up 2 Descriptor Resisted L thumb abd. Resistance provided by therapist. 2 x 10. - Assessment Assessment of Improvement Gap in treatment occurred secondary to clinician being out of the clinic; Sukh has demonstrated slight regression relative to active R sh ext. However, he did show regression w/ resisted TB TT exercises. He demonstrates overall, improved inclusion of R UE w/ cueing w/ unfamiliar and familiar tasks given increased reliance on the left hand/UE. He did use good force w/ seated golfing and has shown no regression relative to meat pumper. Will need to explore alternative options for activities to support bimanual coordination of the upper extremities and functional problem solving. 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 Will need to consider increased resistance and/or transitioning to against gravity exercises for R UE. Sukh benefits from handling, visual cues and environmental modifications to support motor planning of the right upper extremity. Continued outpatient OT is recommended to address ROM, strength, functional abilities, attention/awareness, bimanual coordination, and functional problem solving, with goal of incorporating right upper extremity in day-to-day life with engagement in functional and meaningful activities. - Plan Therapy Recommendations Continue with Current Program Comment 10 weeks Frequency of Treatment Once a Week Therapeutic Contents Active Range of Motion, Adaptive Equipment Education, Client Education,Cognitive Skills Development,Functional Activities,Home Exercise Program,Joint Protection, Manual Therapy,Education, Neurodevelopment Treatment, Neuromuscular Re-Education, Self-Care,Stretching/ Flexibility Activities, Therapeutic Activities, Therapeutic Exercises, Modalities,Sensory Re- education Additional Types of Modalities Heat/Cold/Paraffin If you are in agreement with this Plan of Care, please return a signed and dated copy. I have reviewed this Plan of Care and certify that the skilled therapy services above are required to meet the patient?s needs. Physician Signature Date Printed Name and Credentials Clinical Instructor Signature Printed Name and Credentials
--- NOTE | 2022-11-21 14:36 | OT.OP.TRT ---
Visit Care Team Role Provider Type Delfino Epstein MD Attending Provider Physician Primary Care Provider Referring Provider Specialty: Family Practice Address: [address] [place] [address], [id number] Email: [email or web address] Occupational Therapy Treatment Note OT Outpatient Treatment Note - Adult Start: 05/18/21 12:52 Freq: Status: Active Protocol: Document 11/21/22 14:31 AMS (Rec: 11/21/22 14:36 AMS [id number]) OT Outpatient Adult Treatment Note Session Time Visit Start Time 12:30 Visit Stop Time 13:15 Total Visit Minutes 45 Visit Information Plan of Care Dates 11/07/22 - 01/16/23 Insurance Information [facility]; no pre-auth req to annual plan max; max 80/combo Setting Treatment Setting Outpatient Care Visit Type Note Type Treatment Note General Information General Information Patient is 66 year-old male referred to outpatient OT by PCP, Delfino Epstein MD, secondary to generalized weakness. PMH: Significant for Antiphospholipid antibody syndrome; Aphasia; CAD; Cardiac Arrhythmia; CVA involving L MCA territory ; Chronic atrial flutter; Chronic systolic CHF; CAD involving [place] coronary artery; DM; DVT; Essential HTN ; Hemiparesis affectiving dominant side 01/27/15; Hyperlipidemia; [place]; Pacemaker; RA; Stenosis of left carotid artery; Systolic heart failure . Patient has been seen here at [facility] outpatient therapy services over the years; he is currently receiving outpatient PT. Patient was d/c in December of 2020. His last fall occurred approx 1-2 months ago on the deck. Patient has R hemishoulder/subluxation sling and R GivMohr Sling; he prefers R randa/subluxation sling; however, he did not come to session w/ sling on. - Subjective Identification Type Name Identification Reconciled With Medical Record Observations Sukh was seen 1:1 for OT treatment session. No new concerns were indicated. Anali and her , Elvis, have been primarily overseeing Sukh's execution of exercises in the home (for BRUSH STAINER, PT, and OT). [ End ] Patient/Caregiver Compliance with Home Good Exercise Program Comment w/ family support - Objective Objective Measurements Please refer to below for progress towards meeting established OT goals. 11/07/22 = 90 degrees passive R sh flex and R sh abd available . 01/01/22 = Avg 7.0# of force w/ R home health billing specialist w/ dynamometer I. = avg 7.0# of force w/ R home health billing specialist dynamometer I; avg 5.0# of force w/ R lateral pinch 01/31/22 = he buttoned his shirt by himself this morning (1-handed); he also did shave some of his face (I gave him the razor and he did some of it) Short Term Goals 1. 0-35 degrees active R sh extension. GOALS MET -40 degrees passive R elbow ext. 11/07/22 0-30 degrees active R sh abd. *11/07/22 (modified blocking into randa-pattern) 0-20 degrees active R sh flexion. *MET 08/09/21; 0-45 degrees. 04/04/22 = 0-45 degrees . 11/07/22 = 0-45 degrees w/ typical randa pattern 0-20 degrees active R sh extension. *MET 08/09/21; 0-25 degrees. 06/13/22 = 0-35 degrees. 11/07/22 = 0-25 degrees . Able to separate x 5 pvc pipes and their joints, when given 7 opportunities, requiring no more than 1 model from therapist. *MET 01/10/22 Able to position right hand initially on cane vertical/ cane horizontally/golf club without physical assistance (x 3 attempts per session), requiring no more than 1-2 verbal cues from therapist, demonstrating improving functional problem solving, attention, and active incorporation of the right upper extremity/hand. *MET 08/25 Truck Repair Supervisor Goals 1. Sukh will present with increased attention to the right upper extremity, as well as increased functional incorporation of the right upper extremity; this will be evidenced by active incorporation of the right upper extremity/hand with stabilization of objects at TT , 3 to 4 times per week based on family report requiring no more than 1-2 verbal cues per occasion. 11/07/22 = 50% met; min v.c. 2. Sukh will be modified independent with execution of home exercise program (upper extremity and functional activities) with support of family utilizing provided written and visual instructions from therapist. = 50% met - Treatment 2 Descriptor Tone Management. Exercises 7 Descriptor Elbow ext. TB #3 (modified place and hold x 3 sec w/ TB and muscle tapping to facilitate). 2 x 10. Elbow flex. Muscle tapping to facilitate. 2 x 10. 6 Descriptor PROM. Sh abd. ER. Sh abd w/ ER. Finger ext. Wrist all directions. 5 Descriptor Sustained grasp. Wooden dowel. #5 TB resistance . 5 second hold. 1 set of 10 repetitions. Horizontal positioning of cane. Wooden dowel. #5 TB resistance . 5 second hold. 1 set of 10 repetitions. Vertical positioning of cane. 4 Descriptor Sh ROM. Modified resisted (use of TT). TT Sh flex. 1 x 15 AROM. Resisted 1 x 15 TB #3. TT Sh ext. 1 x 15 AROM. Resisted 1 x 15 TB #3. TT Sh hor abd. 1 x 15 AROM. Resisted 1 x 15 TB #3. Sh abd. 1 x 15 AROM. Resisted 1 x 15 TB #3. 3 Descriptor Functional problem solving activities. Replication of PVC pattern x 1 . Creation/Task break-down - clean-up 2 Descriptor Resisted L thumb abd. Resistance provided by therapist. 2 x 10. - Assessment Assessment of Improvement Min phys assist required w/ problem solving relative to R home health billing specialist w/ active participation in bimanual activities (e.g., seated golfing, seated batting ). Decreased rest breaks required betwen seated TT exercises. Recommend considering inclusion of slope w/ AROM as able to increase difficulty of UE exercises. Disinterest in puzzle option. Preference for replicating structures w/ object manipulation (e.g., PVC pipe tree). Will need to explore alternative options for activities to support bimanual coordination of the upper extremities and functional problem solving. 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 Sukh benefits from handling, visual cues and environmental modifications to support motor planning of the right upper extremity. Continued outpatient OT is recommended to address ROM, strength, functional abilities , attention/awareness, bimanual coordination, and functional problem solving, with goal of incorporating right upper extremity in day- to-day life with engagement in functional and meaningful activities. - Plan Therapy Recommendations Continue with Current Program, Advance per Rehabilitation Protocol
--- NOTE | 2022-11-28 15:58 | OT.OP.TRT ---
Visit Care Team Role Provider Type Delfino Epstein MD Attending Provider Physician Primary Care Provider Referring Provider Specialty: Family Practice Address: [address] [place] [address], [id number] Email: [email or web address] Occupational Therapy Treatment Note OT Outpatient Treatment Note - Adult Start: 05/18/21 12:52 Freq: Status: Active Protocol: Document 11/28/22 15:49 AMS (Rec: 11/28/22 15:57 AMS [id number]) OT Outpatient Adult Treatment Note Session Time Visit Start Time 12:30 Visit Stop Time 13:15 Total Visit Minutes 45 Visit Information Plan of Care Dates 11/07/22 - 01/16/23 Insurance Information [facility]; no pre-auth req to annual plan max; max 80/combo Setting Treatment Setting Outpatient Care Visit Type Note Type Treatment Note General Information General Information Patient is 66 year-old male referred to outpatient OT by PCP, Delfino Epstein MD, secondary to generalized weakness. PMH: Significant for Antiphospholipid antibody syndrome; Aphasia; CAD; Cardiac Arrhythmia; CVA involving L MCA territory ; Chronic atrial flutter; Chronic systolic CHF; CAD involving [place] coronary artery; DM; DVT; Essential HTN ; Hemiparesis affectiving dominant side 01/27/15; Hyperlipidemia; [place]; Pacemaker; RA; Stenosis of left carotid artery; Systolic heart failure . Patient has been seen here at [facility] outpatient therapy services over the years; he is currently receiving outpatient PT. Patient was d/c in December of 2020. His last fall occurred approx 1-2 months ago on the deck. Patient has R hemishoulder/subluxation sling and R GivMohr Sling; he prefers R randa/subluxation sling; however, he did not come to session w/ sling on. - Subjective Identification Type Name Identification Reconciled With Medical Record Observations Sukh was seen 1:1 for OT treatment session. No new concerns were indicated. Anali and her , Elvis, have been primarily overseeing Skuh's execution of exercises in the home (for CEMENT TESTER ASSISTANT, PT, and OT). [ End ] Patient/Caregiver Compliance with Home Good Exercise Program Comment w/ family support - Objective Objective Measurements Please refer to below for progress towards meeting established OT goals. 11/07/22 = 90 degrees passive R sh flex and R sh abd available . 01/01/22 = Avg 7.0# of force w/ R conference interpreter w/ dynamometer I. = avg 7.0# of force w/ R conference interpreter dynamometer I; avg 5.0# of force w/ R lateral pinch 01/31/22 = he buttoned his shirt by himself this morning (1-handed); he also did shave some of his face (I gave him the razor and he did some of it) Short Term Goals 1. 0-35 degrees active R sh extension. GOALS MET -40 degrees passive R elbow ext. 11/07/22 0-30 degrees active R sh abd. *11/07/22 (modified blocking into randa-pattern) 0-20 degrees active R sh flexion. *MET 08/09/21; 0-45 degrees. 04/04/22 = 0-45 degrees . 11/07/22 = 0-45 degrees w/ typical randa pattern 0-20 degrees active R sh extension. *MET 08/09/21; 0-25 degrees. 06/13/22 = 0-35 degrees. 11/07/22 = 0-25 degrees . Able to separate x 5 pvc pipes and their joints, when given 7 opportunities, requiring no more than 1 model from therapist. *MET 01/10/22 Able to position right hand initially on cane vertical/ cane horizontally/golf club without physical assistance (x 3 attempts per session), requiring no more than 1-2 verbal cues from therapist, demonstrating improving functional problem solving, attention, and active incorporation of the right upper extremity/hand. *MET 08/25 Home Health Aide Caregiver Goals 1. Sukh will present with increased attention to the right upper extremity, as well as increased functional incorporation of the right upper extremity; this will be evidenced by active incorporation of the right upper extremity/hand with stabilization of objects at TT , 3 to 4 times per week based on family report requiring no more than 1-2 verbal cues per occasion. 11/07/22 = 50% met; min v.c. 2. Sukh will be modified independent with execution of home exercise program (upper extremity and functional activities) with support of family utilizing provided written and visual instructions from therapist. = 50% met - Treatment 2 Descriptor Tone Management. Positioning of the R hand on the TT w/ fingers in extended position, w/ slight wrist flexion for comfort due increased wrist flexor tone. Exercises 7 Descriptor Elbow ext. TB #3 (modified place and hold x 3 sec w/ TB and muscle tapping to facilitate). 2 x 10. Elbow flex. Muscle tapping to facilitate. 2 x 10. 6 Descriptor PROM. Sh abd. ER. Sh abd w/ ER. Finger ext. Wrist all directions. 5 Descriptor Sustained grasp. Wooden dowel. #5 TB resistance . 5 second hold. 1 set of 10 repetitions. Horizontal positioning of cane. Wooden dowel. #5 TB resistance . 5 second hold. 1 set of 10 repetitions. Vertical positioning of cane. 4 Descriptor Sh ROM. Modified resisted (use of TT). TT Sh flex. 1 x 15 AROM. Resisted 2 x 10 TB #3. TT Sh ext. 1 x 15 AROM. Resisted 2 x 10. TB #3. TT Sh hor abd. 1 x 15 AROM. Resisted 2 x 10. TB #3. Sh abd. 1 x 15 AROM. Resisted 2 x 10. TB #3. 3 Descriptor Functional problem solving activities. Replication of PVC pattern x 1 . Creation/Task break-down - clean-up 2 Descriptor Resisted L thumb abd. Resistance provided by therapist. 2 x 10. - Assessment Assessment of Improvement Min phys assist required w/ problem solving relative to R conference interpreter w/ active participation in bimanual activities (e.g., seated golfing, seated batting ). Increased number of repetitions with resisted theraband; recommend increasing resistance versus increasing to 3 sets. Continued preference for replicating structures w/ object manipulation (e.g., PVC pipe tree) and engaging in bimanual activities, such as seated batting and golfing. (+ ) tolerance for positioning fingers of R hand into extended pattern at TT w/ wrist in slight flexion d/t increased wrist flexor tone; ( +) actively supported therapist to straighten fingers at TT surface suggesting that this might be another option for the home relative to positioning versus engagement in exercise/PROM by caregiver/or wearing of orthotic. Recommend determining if functional independence can be achieved w / this. Will need to explore alternative options for activities to support bimanual coordination of the upper extremities and functional problem solving. 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 Sukh benefits from handling, visual cues and environmental modifications to support motor planning of the right upper extremity. Continued outpatient OT is recommended to address ROM, strength, functional abilities , attention/awareness, bimanual coordination, and functional problem solving, with goal of incorporating right upper extremity in day- to-day life with engagement in functional and meaningful activities. - Plan Therapy Recommendations Continue with Current Program, Advance per Rehabilitation Protocol
--- NOTE | 2022-12-05 13:21 | OT.OP.TRT ---
Visit Care Team Role Provider Type Delfino Epstein MD Attending Provider Physician Primary Care Provider Referring Provider Specialty: Family Practice Address: [address] [place] [address], [id number] Email: [email or web address] Occupational Therapy Treatment Note OT Outpatient Treatment Note - Adult Start: 05/18/21 12:52 Freq: Status: Active Protocol: Document 12/05/22 13:17 AMS (Rec: 12/05/22 13:21 AMS [id number]) OT Outpatient Adult Treatment Note Session Time Visit Start Time 12:30 Visit Stop Time 13:15 Total Visit Minutes 45 Visit Information Plan of Care Dates 11/07/22 - 01/16/23 Insurance Information [facility]; no pre-auth req to annual plan max; max 80/combo Setting Treatment Setting Outpatient Care Visit Type Note Type Treatment Note General Information General Information Patient is 67 year-old male referred to outpatient OT by PCP, Delfino Epstein MD, secondary to generalized weakness. PMH: Significant for Antiphospholipid antibody syndrome; Aphasia; CAD; Cardiac Arrhythmia; CVA involving L MCA territory ; Chronic atrial flutter; Chronic systolic CHF; CAD involving [place] coronary artery; DM; DVT; Essential HTN ; Hemiparesis affectiving dominant side 01/27/15; Hyperlipidemia; [place]; Pacemaker; RA; Stenosis of left carotid artery; Systolic heart failure . Patient has been seen here at [facility] outpatient therapy services over the years; he is currently receiving outpatient PT. Patient was d/c in December of 2020. His last fall occurred approx 1-2 months ago on the deck. Patient has R hemishoulder/subluxation sling and R GivMohr Sling; he prefers R randa/subluxation sling; however, he did not come to session w/ sling on. - Subjective Identification Type Name Identification Reconciled With Medical Record Observations Sukh was seen 1:1 for OT treatment session. No new concerns were indicated. Anali and her , Elvis, have been primarily overseeing Sukh's execution of exercises in the home (for O AND M SUPERVISOR, PT, and OT). [ End ] Patient/Caregiver Compliance with Home Good Exercise Program Comment w/ family support - Objective Objective Measurements Please refer to below for progress towards meeting established OT goals. 11/07/22 = 90 degrees passive R sh flex and R sh abd available . 01/01/22 = Avg 7.0# of force w/ R cathead operator w/ dynamometer I. = avg 7.0# of force w/ R cathead operator dynamometer I; avg 5.0# of force w/ R lateral pinch 01/31/22 = he buttoned his shirt by himself this morning (1-handed); he also did shave some of his face (I gave him the razor and he did some of it) Short Term Goals 1. 0-35 degrees active R sh extension. GOALS MET -40 degrees passive R elbow ext. 11/07/22 0-30 degrees active R sh abd. *11/07/22 (modified blocking into randa-pattern) 0-20 degrees active R sh flexion. *MET 08/09/21; 0-45 degrees. 04/04/22 = 0-45 degrees . 11/07/22 = 0-45 degrees w/ typical randa pattern 0-20 degrees active R sh extension. *MET 08/09/21; 0-25 degrees. 06/13/22 = 0-35 degrees. 11/07/22 = 0-25 degrees . Able to separate x 5 pvc pipes and their joints, when given 7 opportunities, requiring no more than 1 model from therapist. *MET 01/10/22 Able to position right hand initially on cane vertical/ cane horizontally/golf club without physical assistance (x 3 attempts per session), requiring no more than 1-2 verbal cues from therapist, demonstrating improving functional problem solving, attention, and active incorporation of the right upper extremity/hand. *MET 08/25 Java Core Developer Goals 1. Sukh will present with increased attention to the right upper extremity, as well as increased functional incorporation of the right upper extremity; this will be evidenced by active incorporation of the right upper extremity/hand with stabilization of objects at TT , 3 to 4 times per week based on family report requiring no more than 1-2 verbal cues per occasion. 11/07/22 = 50% met; min v.c. 2. Sukh will be modified independent with execution of home exercise program (upper extremity and functional activities) with support of family utilizing provided written and visual instructions from therapist. = 50% met - Treatment 2 Descriptor Tone Management. Positioning of the R hand on the TT w/ fingers in extended position, w/ slight wrist flex. Positioning of the R hand on arm rest w/ replication of PVC pipe tree. Exercises 7 Descriptor Elbow ext. TB #3 (modified place and hold x 3 sec w/ TB and muscle tapping to facilitate). 2 x 10. Elbow flex. Muscle tapping to facilitate. 2 x 10. 6 Descriptor PROM. Sh abd. ER. Sh abd w/ ER. Finger ext. Wrist all directions. 5 Descriptor Sustained grasp. Wooden dowel. #5 TB resistance . 5 second hold. 1 set of 10 repetitions. Horizontal positioning of cane. Wooden dowel. #5 TB resistance . 5 second hold. 1 set of 10 repetitions. Vertical positioning of cane. 4 Descriptor Sh ROM. Modified resisted (use of TT). TT Sh flex. 1 x 15 AROM. Resisted 2 x 10 TB #3. TT Sh ext. 1 x 15 AROM. Resisted 2 x 10. TB #3. TT Sh hor abd. 1 x 15 AROM. Resisted 2 x 10. TB #3. Sh abd. 1 x 15 AROM. Resisted 2 x 10. TB #3. 3 Descriptor Functional problem solving activities. Replication of PVC pattern x 1 . Creation/Task break-down - clean-up 2 Descriptor Resisted L thumb abd. Resistance provided by therapist. 2 x 10. - Assessment Assessment of Improvement Able to manage bilateral grasp of objects while seated on this date (e.g., seated golfing, seated batting). Continued preference for replicating structures w/ object manipulation (e.g., PVC pipe tree) and engaging in bimanual activities, such as seated batting and golfing. (+ ) tolerance for positioning fingers of R hand into extended pattern at TT w/ wrist in slight flexion d/t increased wrist flexor tone; trialed positioning of R arm/ hand on arm rest; rec trialing dycem vs pillow given that R arm did shift (w/ potential of falling off of arm rest). Recommend determining if functional independence can be achieved w/ this. Overall, good session. Will need to explore alternative options for activities to support bimanual coordination of the upper extremities and functional problem solving. 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 Sukh benefits from handling, visual cues and environmental modifications to support motor planning of the right upper extremity. Continued outpatient OT is recommended to address ROM, strength, functional abilities , attention/awareness, bimanual coordination, and functional problem solving, with goal of incorporating right upper extremity in day- to-day life with engagement in functional and meaningful activities. - Plan Therapy Recommendations Continue with Current Program, Advance per Rehabilitation Protocol
--- NOTE | 2022-12-12 13:28 | OT.OP.TRT ---
Visit Care Team Role Provider Type Delfino Epstein MD Attending Provider Physician Primary Care Provider Referring Provider Specialty: Family Practice Address: [address] [place] [address], [address] Email: [email or web address] Occupational Therapy Treatment Note OT Outpatient Treatment Note - Adult Start: 05/18/21 12:52 Freq: Status: Active Protocol: Document 12/12/22 13:24 AMS (Rec: 12/12/22 13:28 AMS [id number]) OT Outpatient Adult Treatment Note Session Time Visit Start Time 12:40 Visit Stop Time 13:15 Total Visit Minutes 35 Visit Information Plan of Care Dates 11/07/22 - 01/16/23 Insurance Information [facility]; no pre-auth req to annual plan max; max 80/combo Setting Treatment Setting Outpatient Care Visit Type Note Type Treatment Note General Information General Information Patient is 67 year-old male referred to outpatient OT by PCP, Delfino Epstein MD, secondary to generalized weakness. PMH: Significant for Antiphospholipid antibody syndrome; Aphasia; CAD; Cardiac Arrhythmia; CVA involving L MCA territory ; Chronic atrial flutter; Chronic systolic CHF; CAD involving [place] coronary artery; DM; DVT; Essential HTN ; Hemiparesis affectiving dominant side 01/27/15; Hyperlipidemia; [place]; Pacemaker; RA; Stenosis of left carotid artery; Systolic heart failure . Patient has been seen here at [facility] outpatient therapy services over the years; he is currently receiving outpatient PT. Patient was d/c in December of 2020. His last fall occurred approx 1-2 months ago on the deck. Patient has R hemishoulder/subluxation sling and R GivMohr Sling; he prefers R randa/subluxation sling; however, he did not come to session w/ sling on. - Subjective Identification Type Name Identification Reconciled With Medical Record Observations Sukh was seen 1:1 for OT treatment session. No new concerns were indicated. Anali and her , Elvis, have been primarily overseeing Sukh's execution of exercises in the home (for TRAFFIC COURT MAGISTRATE, PT, and OT). [ End ] Patient/Caregiver Compliance with Home Good Exercise Program Comment w/ family support - Objective Objective Measurements Please refer to below for progress towards meeting established OT goals. 11/07/22 = 90 degrees passive R sh flex and R sh abd available . 01/01/22 = Avg 7.0# of force w/ R neonatal pediatric nurse w/ dynamometer I. = avg 7.0# of force w/ R neonatal pediatric nurse dynamometer I; avg 5.0# of force w/ R lateral pinch 01/31/22 = he buttoned his shirt by himself this morning (1-handed); he also did shave some of his face (I gave him the razor and he did some of it) Short Term Goals 1. 0-35 degrees active R sh extension. GOALS MET -40 degrees passive R elbow ext. 11/07/22 0-30 degrees active R sh abd. *11/07/22 (modified blocking into randa-pattern) 0-20 degrees active R sh flexion. *MET 08/09/21; 0-45 degrees. 04/04/22 = 0-45 degrees . 11/07/22 = 0-45 degrees w/ typical randa pattern 0-20 degrees active R sh extension. *MET 08/09/21; 0-25 degrees. 06/13/22 = 0-35 degrees. 11/07/22 = 0-25 degrees . Able to separate x 5 pvc pipes and their joints, when given 7 opportunities, requiring no more than 1 model from therapist. *MET 01/10/22 Able to position right hand initially on cane vertical/ cane horizontally/golf club without physical assistance (x 3 attempts per session), requiring no more than 1-2 verbal cues from therapist, demonstrating improving functional problem solving, attention, and active incorporation of the right upper extremity/hand. *MET 08/25 Research Spec Goals 1. Sukh will present with increased attention to the right upper extremity, as well as increased functional incorporation of the right upper extremity; this will be evidenced by active incorporation of the right upper extremity/hand with stabilization of objects at TT , 3 to 4 times per week based on family report requiring no more than 1-2 verbal cues per occasion. 11/07/22 = 50% met; min v.c. 2. Sukh will be modified independent with execution of home exercise program (upper extremity and functional activities) with support of family utilizing provided written and visual instructions from therapist. = 50% met - Treatment 2 Descriptor Tone Management. Positioning of the R hand on the TT w/ fingers in extended position, w/ slight wrist flex. Positioning of the R hand on arm rest w/ replication of PVC pipe tree. Exercises 7 Descriptor Elbow ext. TB #3 (modified place and hold x 3 sec w/ TB and muscle tapping to facilitate). 2 x 10. Elbow flex. Muscle tapping to facilitate. 2 x 10. 6 Descriptor PROM. Sh abd. ER. Sh abd w/ ER. Finger ext. Wrist all directions. 5 Descriptor Sustained grasp. Wooden dowel. #5 TB resistance . 5 second hold. 1 set of 10 repetitions. Horizontal positioning of cane. Wooden dowel. #5 TB resistance . 5 second hold. 1 set of 10 repetitions. Vertical positioning of cane. 4 Descriptor Sh ROM. Modified resisted (use of TT). TT Sh flex. 1 x 15 AROM. Resisted 2 x 10 TB #3. TT Sh ext. 1 x 15 AROM. Resisted 2 x 10. TB #3. TT Sh hor abd. 1 x 15 AROM. Resisted 2 x 10. TB #3. Sh abd. 1 x 15 AROM. Resisted 2 x 10. TB #3. 3 Descriptor Functional problem solving activities. Replication of PVC pattern x 1 . Creation/Task break-down - clean-up 2 Descriptor Resisted L thumb abd. Resistance provided by therapist. 2 x 10. - Assessment Assessment of Improvement Activities/exercises modified d/t shortened treatment session w/ patient arriving late. Able to manage bilateral grasp of objects while seated on this date without support (e.g., seated golfing, seated batting). (+) preference for replication of structures w/ object manipulation (e.g., PVC pipe tree) and engaging in bimanual activities, such as seated batting and golfing. (+ ) tolerance for positioning fingers of R hand into extended pattern at TT w/ wrist in slight flexion d/t increased wrist flexor tone; use of dycem on R arm rest supported maintenance of right forearm on the arm rest. Recommend determining if functional independence can be achieved w/ this. Overall, good session. 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 Sukh benefits from handling, visual cues and environmental modifications to support motor planning of the right upper extremity. Continued outpatient OT is recommended to address ROM, strength, functional abilities , attention/awareness, bimanual coordination, and functional problem solving, with goal of incorporating right upper extremity in day- to-day life with engagement in functional and meaningful activities. - Plan Therapy Recommendations Continue with Current Program, Advance per Rehabilitation Protocol
--- NOTE | 2022-12-19 14:46 | OT.OP.TRT ---
Visit Care Team Role Provider Type Delfino Epstein MD Attending Provider Physician Primary Care Provider Referring Provider Specialty: Family Practice Address: [address] [place] [address], [id number] Email: [email or web address] Occupational Therapy Treatment Note OT Outpatient Treatment Note - Adult Start: 05/18/21 12:52 Freq: Status: Active Protocol: Document 12/19/22 14:42 AMS (Rec: 12/19/22 14:45 AMS [id number]) OT Outpatient Adult Treatment Note Session Time Visit Start Time 12:45 Visit Stop Time 13:15 Total Visit Minutes 30 Visit Information Plan of Care Dates 11/07/22 - 01/16/23 Insurance Information [facility]; no pre-auth req to annual plan max; max 80/combo Setting Treatment Setting Outpatient Care Visit Type Note Type Treatment Note General Information General Information Patient is 67 year-old male referred to outpatient OT by PCP, Delfino Epstein MD, secondary to generalized weakness. PMH: Significant for Antiphospholipid antibody syndrome; Aphasia; CAD; Cardiac Arrhythmia; CVA involving L MCA territory ; Chronic atrial flutter; Chronic systolic CHF; CAD involving [place] coronary artery; DM; DVT; Essential HTN ; Hemiparesis affectiving dominant side 01/27/15; Hyperlipidemia; [place]; Pacemaker; RA; Stenosis of left carotid artery; Systolic heart failure . Patient has been seen here at [facility] outpatient therapy services over the years; he is currently receiving outpatient PT. Patient was d/c in December of 2020. His last fall occurred approx 1-2 months ago on the deck. Patient has R hemishoulder/subluxation sling and R GivMohr Sling; he prefers R randa/subluxation sling; however, he did not come to session w/ sling on. - Subjective Identification Type Name Identification Reconciled With Medical Record Observations Sukh was seen 1:1 for OT treatment session. Nonverbal signs of pain/discomfort of R LE. Shortened treatment session d/t need for break w/ ambulation back to treatment room. Anali and her , Elvis, have been primarily overseeing Sukh's execution of exercises in the home (for GROWTH MEDIA MIXER MUSHROOM, PT, and OT). [ End ] Patient/Caregiver Compliance with Home Good Exercise Program Comment w/ family support - Objective Objective Measurements Please refer to below for progress towards meeting established OT goals. 11/07/22 = 90 degrees passive R sh flex and R sh abd available . 01/01/22 = Avg 7.0# of force w/ R buffer inflated pad w/ dynamometer I. = avg 7.0# of force w/ R buffer inflated pad dynamometer I; avg 5.0# of force w/ R lateral pinch 01/31/22 = he buttoned his shirt by himself this morning (1-handed); he also did shave some of his face (I gave him the razor and he did some of it) Short Term Goals 1. 0-35 degrees active R sh extension. GOALS MET -40 degrees passive R elbow ext. 11/07/22 0-30 degrees active R sh abd. *11/07/22 (modified blocking into randa-pattern) 0-20 degrees active R sh flexion. *MET 08/09/21; 0-45 degrees. 04/04/22 = 0-45 degrees . 11/07/22 = 0-45 degrees w/ typical randa pattern 0-20 degrees active R sh extension. *MET 08/09/21; 0-25 degrees. 06/13/22 = 0-35 degrees. 11/07/22 = 0-25 degrees . Able to separate x 5 pvc pipes and their joints, when given 7 opportunities, requiring no more than 1 model from therapist. *MET 01/10/22 Able to position right hand initially on cane vertical/ cane horizontally/golf club without physical assistance (x 3 attempts per session), requiring no more than 1-2 verbal cues from therapist, demonstrating improving functional problem solving, attention, and active incorporation of the right upper extremity/hand. *MET 08/25 Skilled Nursing Goals 1. Sukh will present with increased attention to the right upper extremity, as well as increased functional incorporation of the right upper extremity; this will be evidenced by active incorporation of the right upper extremity/hand with stabilization of objects at TT , 3 to 4 times per week based on family report requiring no more than 1-2 verbal cues per occasion. 11/07/22 = 50% met; min v.c. 2. Sukh will be modified independent with execution of home exercise program (upper extremity and functional activities) with support of family utilizing provided written and visual instructions from therapist. = 50% met - Treatment 2 Descriptor Tone Management. Positioning of the R hand on the TT w/ fingers in extended position, w/ slight wrist flex. Positioning of the R hand on arm rest w/ replication of PVC pipe tree. Exercises 7 Descriptor Elbow ext. TB #3 (modified place and hold x 3 sec w/ TB and muscle tapping to facilitate). 2 x 10. Elbow flex. Muscle tapping to facilitate. 2 x 10. 6 Descriptor PROM. Sh abd. ER. Sh abd w/ ER. Finger ext. Wrist all directions. 4 Descriptor Sh ROM. Modified resisted (use of TT). TT Sh flex. 1 x 15 AROM. Resisted 2 x 10 TB #3. TT Sh ext. 1 x 15 AROM. Resisted 2 x 10. TB #3. TT Sh hor abd. 1 x 15 AROM. Resisted 2 x 10. TB #3. Sh abd. 1 x 15 AROM. Resisted 2 x 10. TB #3. 3 Descriptor Functional problem solving activities. Replication of PVC pattern x 1 . Creation/Task break-down - clean-up - Assessment Assessment of Improvement Activities/exercises modified d/t shortened treatment session w/ patient c/o R LE pain/discomfort and need for break w/ transition back to treatment room from waiting room. Nonverbal signs of pain/ discomfort of the R LE ( grabbing of distal LE below knee, wincing). Able to manage bilateral grasp of objects while seated on this date without support (e.g., seated golfing, seated batting). (+) preference for replication of structures w/ object manipulation (e.g., PVC pipe tree) and engaging in bimanual activities, such as seated batting and golfing. (+) tolerance for positioning fingers of R hand into extended pattern at TT w/ wrist in slight flexion d/t increased wrist flexor tone; use of dycem on R arm rest supported maintenance of right forearm on the arm rest. Recommend determining if functional independence can be achieved w/ this. Overall, good session. 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 Sukh benefits from handling, visual cues and environmental modifications to support motor planning of the right upper extremity. Continued outpatient OT is recommended to address ROM, strength, functional abilities , attention/awareness, bimanual coordination, and functional problem solving, with goal of incorporating right upper extremity in day- to-day life with engagement in functional and meaningful activities. - Plan Therapy Recommendations Continue with Current Program, Advance per Rehabilitation Protocol
--- NOTE | 2022-12-26 14:42 | OT.OP.TRT ---
Visit Care Team Role Provider Type Delfino Epstein MD Attending Provider Physician Primary Care Provider Referring Provider Specialty: Family Practice Address: [address] [place] [address], [id number] Email: [email or web address] Occupational Therapy Treatment Note OT Outpatient Treatment Note - Adult Start: 05/18/21 12:52 Freq: Status: Active Protocol: Document 12/26/22 14:31 AMS (Rec: 12/26/22 14:41 AMS [id number]) OT Outpatient Adult Treatment Note Session Time Visit Start Time 12:45 Visit Stop Time 13:15 Visit Information Plan of Care Dates 11/07/22 - 01/16/23 Insurance Information [facility]; no pre-auth req to annual plan max; max 80/combo Setting Treatment Setting Outpatient Care Visit Type Note Type Treatment Note General Information General Information Patient is 67 year-old male referred to outpatient OT by PCP, Delfino Epstein MD, secondary to generalized weakness. PMH: Significant for Antiphospholipid antibody syndrome; Aphasia; CAD; Cardiac Arrhythmia; CVA involving L MCA territory ; Chronic atrial flutter; Chronic systolic CHF; CAD involving [place] coronary artery; DM; DVT; Essential HTN ; Hemiparesis affectiving dominant side 01/27/15; Hyperlipidemia; [place]; Pacemaker; RA; Stenosis of left carotid artery; Systolic heart failure . Patient has been seen here at [facility] outpatient therapy services over the years; he is currently receiving outpatient PT. Patient was d/c in December of 2020. His last fall occurred approx 1-2 months ago on the deck. Patient has R hemishoulder/subluxation sling and R GivMohr Sling; he prefers R randa/subluxation sling; however, he did not come to session w/ sling on. - Subjective Identification Type Name Identification Reconciled With Medical Record Observations Sukh was seen 1:1 for OT treatment session. No signs of discomfort of Aure Crespo and her , Elvis, have been primarily overseeing Sukh's execution of exercises in the home (for COSTUMER, PT, and OT). [ End ] Patient/Caregiver Compliance with Home Good Exercise Program Comment w/ family support - Objective Objective Measurements Please refer to below for progress towards meeting established OT goals. 11/07/22 = 90 degrees passive R sh flex and R sh abd available . 01/01/22 = Avg 7.0# of force w/ R grinding machine operator w/ dynamometer I. = avg 7.0# of force w/ R grinding machine operator dynamometer I; avg 5.0# of force w/ R lateral pinch 01/31/22 = he buttoned his shirt by himself this morning (1-handed); he also did shave some of his face (I gave him the razor and he did some of it) Short Term Goals 1. 0-35 degrees active R sh extension. GOALS MET -40 degrees passive R elbow ext. 11/07/22 0-30 degrees active R sh abd. *11/07/22 (modified blocking into randa-pattern) 0-20 degrees active R sh flexion. *MET 08/09/21; 0-45 degrees. 04/04/22 = 0-45 degrees . 11/07/22 = 0-45 degrees w/ typical randa pattern 0-20 degrees active R sh extension. *MET 08/09/21; 0-25 degrees. 06/13/22 = 0-35 degrees. 11/07/22 = 0-25 degrees . Able to separate x 5 pvc pipes and their joints, when given 7 opportunities, requiring no more than 1 model from therapist. *MET 01/10/22 Able to position right hand initially on cane vertical/ cane horizontally/golf club without physical assistance (x 3 attempts per session), requiring no more than 1-2 verbal cues from therapist, demonstrating improving functional problem solving, attention, and active incorporation of the right upper extremity/hand. *MET 08/25 Inter Com Servicer Goals 1. Sukh will present with increased attention to the right upper extremity, as well as increased functional incorporation of the right upper extremity; this will be evidenced by active incorporation of the right upper extremity/hand with stabilization of objects at TT , 3 to 4 times per week based on family report requiring no more than 1-2 verbal cues per occasion. 11/07/22 = 50% met; min v.c. 2. Sukh will be modified independent with execution of home exercise program (upper extremity and functional activities) with support of family utilizing provided written and visual instructions from therapist. = 50% met - Treatment 2 Descriptor Tone Management. Positioning of the R hand on the TT w/ fingers in extended position, w/ slight wrist flex. Positioning of the R hand on arm rest w/ replication of PVC pipe tree. Exercises 7 Descriptor Elbow ext. TB #3 (modified place and hold x 3 sec w/ TB and muscle tapping to facilitate). 2 x 10. Elbow flex. Muscle tapping to facilitate. 2 x 10. 6 Descriptor PROM. Sh abd. ER. Sh abd w/ ER. Finger ext. Wrist all directions. 4 Descriptor Sh ROM. Modified resisted (use of TT). TT Sh flex. 2 x 10 AROM. Resisted 2 x 10 TB #3. TT Sh ext. 2 x 10 AROM. Resisted 2 x 10. TB #3. TT Sh hor abd. 2 x 10 AROM. Resisted 2 x 10. TB #3. Sh abd. 2 x 10 AROM. Resisted 2 x 10. TB #3. 3 Descriptor Functional problem solving activities. Replication of PVC pattern x 1 . Creation/Task break-down - clean-up - Assessment Assessment of Improvement No nonverbal signs of pain/ discomfort of the R LE. Increasing activity tolerance; increased number of repetitions with active range of motion TT exercises. No c/o fatigue. Rest breaks w/ changing of position of chair and bimanual tasks in sitting. (+) ability to exert increased force w/ golf swing; able to manage larger bolster w/ golf swing seated x 5 trials. Able to manage bilateral grasp of objects while seated on this date without support (e.g., seated golfing, seated batting). (+) preference for replication of structures w/ object manipulation (e.g., PVC pipe tree) and engaging in bimanual activities, such as seated batting and golfing. Recommend determining if functional independence can be achieved w / positioning of R arm/hand can be positioned/maintained on R arm rest. Overall, good session. 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 Sukh benefits from handling, visual cues and environmental modifications to support motor planning of the right upper extremity. Continued outpatient OT is recommended to address ROM, strength, functional abilities , attention/awareness, bimanual coordination, and functional problem solving, with goal of incorporating right upper extremity in day- to-day life with engagement in functional and meaningful activities. - Plan Therapy Recommendations Continue with Current Program, Advance per Rehabilitation Protocol
--- NOTE | 2023-01-02 15:30 | OT.OP.TRT ---
Visit Care Team Role Provider Type Delfino Epstein MD Attending Provider Physician Primary Care Provider Referring Provider Specialty: Family Practice Address: [address] [place] [address], [id number] Email: [email or web address] Occupational Therapy Treatment Note OT Outpatient Treatment Note - Adult Start: 05/18/21 12:52 Freq: Status: Active Protocol: Document 01/02/23 15:30 AMS (Rec: 01/03/23 11:48 AMS [id number]) OT Outpatient Adult Treatment Note Session Time Visit Start Time 12:35 Visit Stop Time 13:15 Total Visit Minutes 40 Visit Information Plan of Care Dates 11/07/22 - 01/16/23 Insurance Information [facility]; no pre-auth req to annual plan max; max 80/combo Setting Treatment Setting Outpatient Care Visit Type Note Type Treatment Note General Information General Information Patient is 67 year-old male referred to outpatient OT by PCP, Delfino Epstein MD, secondary to generalized weakness. PMH: Significant for Antiphospholipid antibody syndrome; Aphasia; CAD; Cardiac Arrhythmia; CVA involving L MCA territory ; Chronic atrial flutter; Chronic systolic CHF; CAD involving [place] coronary artery; DM; DVT; Essential HTN ; Hemiparesis affectiving dominant side 01/27/15; Hyperlipidemia; [place]; Pacemaker; RA; Stenosis of left carotid artery; Systolic heart failure . Patient has been seen here at [facility] outpatient therapy services over the years; he is currently receiving outpatient PT. Patient was d/c in December of 2020. His last fall occurred approx 1-2 months ago on the deck. Patient has R hemishoulder/subluxation sling and R GivMohr Sling; he prefers R randa/subluxation sling; however, he did not come to session w/ sling on. - Subjective Identification Type Name Identification Reconciled With Medical Record Observations Sukh was seen 1:1 for OT treatment session. No new concerns were indicated. Anali and her , Elvis, have been primarily overseeing Sukh's execution of exercises in the home (for DIRECTOR COMMUNITY ORGANIZATION, PT, and OT). [ End ] Patient/Caregiver Compliance with Home Good Exercise Program Comment w/ family support - Objective Objective Measurements Please refer to below for progress towards meeting established OT goals. 11/07/22 = 90 degrees passive R sh flex and R sh abd available . 01/01/22 = Avg 7.0# of force w/ R butadiene converter helper w/ dynamometer I. = avg 7.0# of force w/ R butadiene converter helper dynamometer I; avg 5.0# of force w/ R lateral pinch 01/31/22 = he buttoned his shirt by himself this morning (1-handed); he also did shave some of his face (I gave him the razor and he did some of it) Short Term Goals 1. 0-35 degrees active R sh extension. GOALS MET -40 degrees passive R elbow ext. 11/07/22 0-30 degrees active R sh abd. *11/07/22 (modified blocking into randa-pattern) 0-20 degrees active R sh flexion. *MET 08/09/21; 0-45 degrees. 04/04/22 = 0-45 degrees . 11/07/22 = 0-45 degrees w/ typical randa pattern 0-20 degrees active R sh extension. *MET 08/09/21; 0-25 degrees. 06/13/22 = 0-35 degrees. 11/07/22 = 0-25 degrees . Able to separate x 5 pvc pipes and their joints, when given 7 opportunities, requiring no more than 1 model from therapist. *MET 01/10/22 Able to position right hand initially on cane vertical/ cane horizontally/golf club without physical assistance (x 3 attempts per session), requiring no more than 1-2 verbal cues from therapist, demonstrating improving functional problem solving, attention, and active incorporation of the right upper extremity/hand. *MET 08/25 Place Change Roof Bolter Goals 1. Sukh will present with increased attention to the right upper extremity, as well as increased functional incorporation of the right upper extremity; this will be evidenced by active incorporation of the right upper extremity/hand with stabilization of objects at TT , 3 to 4 times per week based on family report requiring no more than 1-2 verbal cues per occasion. 11/07/22 = 50% met; min v.c. 2. Sukh will be modified independent with execution of home exercise program (upper extremity and functional activities) with support of family utilizing provided written and visual instructions from therapist. = 50% met - Exercises 7 Descriptor Elbow ext. TB #3 (modified place and hold x 3 sec w/ TB and muscle tapping to facilitate). 2 x 10. Elbow flex. Muscle tapping to facilitate. 2 x 10. 6 Descriptor PROM. Sh abd. ER. Sh abd w/ ER. Finger ext. Wrist all directions. 4 Descriptor Sh ROM. Modified resisted (use of TT). TT Sh flex. 2 x 10 AROM. Resisted 2 x 10 TB #3. TT Sh ext. 2 x 10 AROM. Resisted 2 x 10. TB #3. TT Sh hor abd. 2 x 10 AROM. Resisted 2 x 10. TB #3. Sh abd. 2 x 10 AROM. Resisted 2 x 10. TB #3. 3 Descriptor Functional problem solving activities. Replication of PVC pattern x 1 . 1 v.c. to correct orientation of single joint. Creation/Task break-down - clean-up - Assessment Assessment of Improvement No c/o fatigue. Rest breaks w/ changing of position of chair and bimanual tasks in sitting . Able to manage larger bolster w/ golf swing seated x 5 trials; recommend considering increasing distance being 'putted'. Able to manage bilateral grasp of objects while seated on this date without support (e.g., seated golfing, seated batting ). (+) preference for replication of structures w/ object manipulation (e.g., PVC pipe tree) and engaging in bimanual activities, such as seated batting and golfing. Required 1 v.c. to support correct orientation/ replication of PVC pipe tree. Recommend determining if functional independence can be achieved w/ positioning of R arm/hand can be positioned/ maintained on R arm rest. Overall, good session. 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 Sukh benefits from handling, visual cues and environmental modifications to support motor planning of the right upper extremity. Continued outpatient OT is recommended to address ROM, strength, functional abilities , attention/awareness, bimanual coordination, and functional problem solving, with goal of incorporating right upper extremity in day- to-day life with engagement in functional and meaningful activities. - Plan Therapy Recommendations Continue with Current Program, Advance per Rehabilitation Protocol
--- NOTE | 2023-01-02 15:30 | OT.OP.TRT ---
Visit Care Team Role Provider Type Delfino Epstein MD Attending Provider Physician Primary Care Provider Referring Provider Specialty: Family Practice Address: [address] [place] [address], [id number] Email: [email or web address] Occupational Therapy Treatment Note OT Outpatient Treatment Note - Adult Start: 05/18/21 12:52 Freq: Status: Active Protocol: Document 01/03/23 11:45 AMS (Rec: 01/03/23 11:48 AMS [id number]) OT Outpatient Adult Treatment Note Session Time Visit Start Time 12:35 Visit Stop Time 13:15 Total Visit Minutes 40 Visit Information Plan of Care Dates 11/07/22 - 01/16/23 Insurance Information [facility]; no pre-auth req to annual plan max; max 80/combo Setting Treatment Setting Outpatient Care Visit Type Note Type Treatment Note General Information General Information Patient is 67 year-old male referred to outpatient OT by PCP, Delfino Epstein MD, secondary to generalized weakness. PMH: Significant for Antiphospholipid antibody syndrome; Aphasia; CAD; Cardiac Arrhythmia; CVA involving L MCA territory ; Chronic atrial flutter; Chronic systolic CHF; CAD involving eek coronary artery; DM; DVT; Essential HTN ; Hemiparesis affectiving dominant side 01/27/15; Hyperlipidemia; LA; Pacemaker; RA; Stenosis of left carotid artery; Systolic heart failure . Patient has been seen here at [facility] outpatient therapy services over the years; he is currently receiving outpatient PT. Patient was d/c in December of 2020. His last fall occurred approx 1-2 months ago on the deck. Patient has R hemishoulder/subluxation sling and R GivMohr Sling; he prefers R randa/subluxation sling; however, he did not come to session w/ sling on. - Subjective Identification Type Name Identification Reconciled With Medical Record Observations Sukh was seen 1:1 for OT treatment session. No new concerns were indicated. Anali and her , Elvis, have been primarily overseeing Sukh's execution of exercises in the home (for EMT B, PT, and OT). [ End ] Patient/Caregiver Compliance with Home Good Exercise Program Comment w/ family support - Objective Objective Measurements Please refer to below for progress towards meeting established OT goals. 11/07/22 = 90 degrees passive R sh flex and R sh abd available . 01/01/22 = Avg 7.0# of force w/ R picking machine operator helper w/ dynamometer I. = avg 7.0# of force w/ R picking machine operator helper dynamometer I; avg 5.0# of force w/ R lateral pinch 01/31/22 = he buttoned his shirt by himself this morning (1-handed); he also did shave some of his face (I gave him the razor and he did some of it) Short Term Goals 1. 0-35 degrees active R sh extension. GOALS MET -40 degrees passive R elbow ext. 11/07/22 0-30 degrees active R sh abd. *11/07/22 (modified blocking into randa-pattern) 0-20 degrees active R sh flexion. *MET 08/09/21; 0-45 degrees. 04/04/22 = 0-45 degrees . 11/07/22 = 0-45 degrees w/ typical randa pattern 0-20 degrees active R sh extension. *MET 08/09/21; 0-25 degrees. 06/13/22 = 0-35 degrees. 11/07/22 = 0-25 degrees . Able to separate x 5 pvc pipes and their joints, when given 7 opportunities, requiring no more than 1 model from therapist. *MET 01/10/22 Able to position right hand initially on cane vertical/ cane horizontally/golf club without physical assistance (x 3 attempts per session), requiring no more than 1-2 verbal cues from therapist, demonstrating improving functional problem solving, attention, and active incorporation of the right upper extremity/hand. *MET 08/25 Manager Competitive Intelligence Goals 1. Sukh will present with increased attention to the right upper extremity, as well as increased functional incorporation of the right upper extremity; this will be evidenced by active incorporation of the right upper extremity/hand with stabilization of objects at TT , 3 to 4 times per week based on family report requiring no more than 1-2 verbal cues per occasion. 11/07/22 = 50% met; min v.c. 2. Sukh will be modified independent with execution of home exercise program (upper extremity and functional activities) with support of family utilizing provided written and visual instructions from therapist. = 50% met - Exercises 7 Descriptor Elbow ext. TB #3 (modified place and hold x 3 sec w/ TB and muscle tapping to facilitate). 2 x 10. Elbow flex. Muscle tapping to facilitate. 2 x 10. 6 Descriptor PROM. Sh abd. ER. Sh abd w/ ER. Finger ext. Wrist all directions. 4 Descriptor Sh ROM. Modified resisted (use of TT). TT Sh flex. 2 x 10 AROM. Resisted 2 x 10 TB #3. TT Sh ext. 2 x 10 AROM. Resisted 2 x 10. TB #3. TT Sh hor abd. 2 x 10 AROM. Resisted 2 x 10. TB #3. Sh abd. 2 x 10 AROM. Resisted 2 x 10. TB #3. 3 Descriptor Functional problem solving activities. Replication of PVC pattern x 1 . 1 v.c. to correct orientation of single joint. Creation/Task break-down - clean-up - Assessment Assessment of Improvement No c/o fatigue. Rest breaks w/ changing of position of chair and bimanual tasks in sitting . Able to manage larger bolster w/ golf swing seated x 5 trials; recommend considering increasing distance being 'putted'. Able to manage bilateral grasp of objects while seated on this date without support (e.g., seated golfing, seated batting ). (+) preference for replication of structures w/ object manipulation (e.g., PVC pipe tree) and engaging in bimanual activities, such as seated batting and golfing. Required 1 v.c. to support correct orientation/ replication of PVC pipe tree. Recommend determining if functional independence can be achieved w/ positioning of R arm/hand can be positioned/ maintained on R arm rest. Overall, good session. 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 Sukh benefits from handling, visual cues and environmental modifications to support motor planning of the right upper extremity. Continued outpatient OT is recommended to address ROM, strength, functional abilities , attention/awareness, bimanual coordination, and functional problem solving, with goal of incorporating right upper extremity in day- to-day life with engagement in functional and meaningful activities. - Plan Therapy Recommendations Continue with Current Program, Advance per Rehabilitation Protocol
--- NOTE | 2023-01-09 15:18 | OT.OP.TRT ---
Visit Care Team Role Provider Type Delfino Epstein MD Attending Provider Physician Primary Care Provider Referring Provider Specialty: Family Practice Address: [address] [place] [address], [id number] Email: [email or web address] Occupational Therapy Treatment Note OT Outpatient Treatment Note - Adult Start: 05/18/21 12:52 Freq: Status: Active Protocol: Document 01/09/23 15:07 AMS (Rec: 01/09/23 15:18 AMS [id number]) OT Outpatient Adult Treatment Note Session Time Visit Start Time 12:35 Visit Stop Time 13:15 Total Visit Minutes 40 Visit Information Plan of Care Dates 11/07/22 - 01/16/23 Insurance Information [facility]; no pre-auth req to annual plan max; max 80/combo Setting Treatment Setting Outpatient Care Visit Type Note Type Treatment Note General Information General Information Patient is a 64 year-old male referred to outpatient OT by PCP; patient was accompanied to initial eval by . 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 Patient has been seen in outpatient clinic at [facility] for OT, PT, and LOADER HELPER. He was recently hospitalized 06/22/19 d/t 3 falls that occurred on the same day. He was d/c and then re-hospitalized in August 2019. He was identified to have low sodium. Post hospitalization patient had Home Health OT; Home Health HEP was designed as follows: shoulder flex; sh abd; sh hor abd; wrist ext; positioning of hand/wrist on towel; PROM of digits of L hand; passive elbow flexion/ext. HEP also includes writing of name and squeezing putty. Frequency is 1 x per day, 10 reps. PMH: significant for RA; blood clots; depression; diabetes mellitus I; falls; depression; heart attack; pacemaker; neuropathy; R elbow surgery. - Subjective Identification Type Name Identification Reconciled With Medical Record Observations Sukh was seen 1:1 for OT treatment session. No new concerns were indicated. Anali and her , Elvis, have been primarily overseeing Sukh's execution of exercises in the home (for LOADER HELPER, PT, and OT). Patient/Caregiver Compliance with Home Good Exercise Program Comment w/ family support - Objective Objective Measurements Please refer to below for progress towards meeting established OT goals. 05/16/20= avg 8.0 pounds of force w/ R shredding floor equipment operator dynamometer II testing. Short Term Goals 1. 0-35 degrees active R sh extension. GOALS MET -40 degrees passive R elbow ext. 11/07/22 0-30 degrees active R sh abd. *11/07/22 (modified blocking into randa-pattern) 0-20 degrees active R sh flexion. *MET 08/09/21; 0-45 degrees. 04/04/22 = 0-45 degrees . 11/07/22 = 0-45 degrees w/ typical randa pattern 0-20 degrees active R sh extension. *MET 08/09/21; 0-25 degrees. 06/13/22 = 0-35 degrees. 11/07/22 = 0-25 degrees . Able to separate x 5 pvc pipes and their joints, when given 7 opportunities, requiring no more than 1 model from therapist. *MET 01/10/22 Able to position right hand initially on cane vertical/ cane horizontally/golf club without physical assistance (x 3 attempts per session), requiring no more than 1-2 verbal cues from therapist, demonstrating improving functional problem solving, attention, and active incorporation of the right upper extremity/hand. *MET 08/25 Retail Management Trainee Goals 1. Sukh will present with increased attention to the right upper extremity, as well as increased functional incorporation of the right upper extremity; this will be evidenced by active incorporation of the right upper extremity/hand with stabilization of objects at TT , 3 to 4 times per week based on family report requiring no more than 1-2 verbal cues per occasion. 11/07/22 = 50% met; min v.c. 2. Sukh will be modified independent with execution of home exercise program (upper extremity and functional activities) with support of family utilizing provided written and visual instructions from therapist. = 50% met - Treatment 3 Descriptor Functional problem solving activities. Bimanual coordination. Attention to the affected UE. Replication of PVC pattern w/ S; able to imitate structure without errors w/ increased time x 1 joint for orientation . Seating swinging of small baseball bat. Striking of 3 1/ 2-inch ball. x 10 repetitions. Seated golfing. Putting. Bimanual coordination. Use of small slope. Increased distance being 'putted'. 2 Descriptor Tone Management. Positioning of the R hand on the TT w/ fingers in extended position, w/ slight wrist flex. Positioning of the R hand on arm rest w/ replication of PVC pipe tree. Exercises 7 Descriptor Elbow ext. TB #3 (modified place and hold x 3 sec w/ TB and muscle tapping to facilitate). 2 x 10. Elbow flex. Muscle tapping to facilitate. 2 x 10. [ End ] 6 Descriptor Sh ROM. Modified resisted (use of TT). TT Sh flex. 2 x 10 AROM. Resisted 3 x 10 TB #3. TT Sh ext. 2 x 10 AROM. Resisted 3 x 10. TB #3. TT Sh hor abd. 2 x 10 AROM. Resisted 3 x 10. TB #3. Sh abd. 2 x 10 AROM. Resisted 3 x 10. TB #3. 5 Descriptor Cane exercise. Seated elbow flex/ext w/ forearms pronated. 1 x 10. 4 Descriptor Digit/Hand strengthening exercises. Large dowel w/ TB # 5 resistance. x 5 sec hold. 1 x 10. Forearm pronated. 90 degrees forearm supination. 1 x 10. 3 Descriptor Bimanual functional activities . Coffee mug w/ proper posture based on guidelines previously recommended for swallowing ( confirmed by Felicity). - Assessment Assessment of Improvement No c/o fatigue. Rest breaks w/ changing of position of chair and bimanual tasks in sitting . Increased number of sets w/ resisted UE strengthening exercises. Increased distance being 'putted' with seated golfing; increased force noted w/ swing; recommend incorporating larger slope at time of next session. Able to manage bilateral grasp of objects while seated on this date without support (e.g., seated golfing, seated batting ). (+) preference for replication of structures w/ object manipulation (e.g., PVC pipe tree) and engaging in bimanual activities, such as seated batting and golfing. Assist w/ positioning of R forearm on arm rest w/ dycem; recommend determining if functional independence can be achieved w/ positioning of R arm/hand can be positioned/ maintained on R arm rest. Returned to cane elbow flex/ ext based on concerns indicated by Sukh; consider increasing sets/repetitions/ resistance. Overall, good session. 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 Sukh benefits from handling, visual cues and environmental modifications to support motor planning of the right upper extremity. Continued outpatient OT is recommended to address ROM, strength, functional abilities , attention/awareness, bimanual coordination, and functional problem solving, with goal of incorporating right upper extremity in day- to-day life with engagement in functional and meaningful activities. - Plan Therapy Recommendations Continue with Current Program, Advance per Rehabilitation Protocol
--- NOTE | 2023-01-16 15:30 | OT.OPPN ---
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 (01/16/23) Weakness (01/16/23) OT Progress Note OT Outpatient Treatment Note - Adult Start: 05/18/21 12:52 Freq: Status: Active Protocol: Document 01/16/23 15:53 AMS (Rec: 01/16/23 16:02 AMS [id number]) OT Outpatient Adult Treatment Note Session Time Visit Start Time 12:30 Visit Stop Time 13:15 Total Visit Minutes 45 Visit Information Visit Number 10 - OT 2022 visits Plan of Care Dates 01/16/23 - 03/27/23 Insurance Information [facility]; no pre-auth req to annual plan max; max 80/combo Setting Treatment Setting Outpatient Care Visit Type Note Type Progress Note General Information General Information Patient is a 64 year-old male referred to outpatient OT by PCP; patient was accompanied to initial eval by . 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 Patient has been seen in outpatient clinic at [facility] for OT, PT, and MANDREL MAKER. He was recently hospitalized 06/22/19 d/t 3 falls that occurred on the same day. He was d/c and then re-hospitalized in August 2019. He was identified to have low sodium. Post hospitalization patient had Home Health OT; Home Health HEP was designed as follows: shoulder flex; sh abd; sh hor abd; wrist ext; positioning of hand/wrist on towel; PROM of digits of L hand; passive elbow flexion/ext. HEP also includes writing of name and squeezing putty. Frequency is 1 x per day, 10 reps. PMH: significant for RA; blood clots; depression; diabetes mellitus I; falls; depression; heart attack; pacemaker; neuropathy; R elbow surgery. - Subjective Identification Type Name Identification Reconciled With Medical Record Observations Sukh was seen 1:1 for OT treatment session. No new concerns were indicated. Anali and her , Elvis, have been primarily overseeing Sukh's execution of exercises in the home (for MANDREL MAKER, PT, and OT). Patient/Caregiver Compliance with Home Good Exercise Program Comment w/ family support - Objective Objective Measurements Please refer to below for progress towards meeting established OT goals. 05/16/20= avg 8.0 pounds of force w/ R telegraph printer mechanic dynamometer II testing. Short Term Goals 1. 0-40 degrees active R sh extension. 01/16/23 = GOAL UPGRADED; 0-35 degrees R active sh ext GOALS MET -40 degrees passive R elbow ext. 11/07/22 0-30 degrees active R sh abd. *11/07/22 (modified blocking into randa-pattern) 0-20 degrees active R sh flexion. *MET 08/09/21; 0-45 degrees. 04/04/22 = 0-45 degrees . 01/16/23 = 0-45 degrees w/ typical randa pattern 0-20 degrees active R sh extension. *MET 08/09/21; 0-25 degrees. 06/13/22 = 0-35 degrees. 11/07/22 = 0-25 degrees . Able to separate x 5 pvc pipes and their joints, when given 7 opportunities, requiring no more than 1 model from therapist. *MET 01/10/22 Able to position right hand initially on cane vertical/ cane horizontally/golf club without physical assistance (x 3 attempts per session), requiring no more than 1-2 verbal cues from therapist, demonstrating improving functional problem solving, attention, and active incorporation of the right upper extremity/hand. *MET 08/25 Commanding Officer Motorized Squad Goals 1. Sukh will present with increased attention to the right upper extremity, as well as increased functional incorporation of the right upper extremity; this will be evidenced by active incorporation of the right upper extremity/hand with stabilization of objects at TT , 3 to 4 times per week based on family report requiring no more than 1-2 verbal cues per occasion. 01/16/23 = 50% met; min v.c. 2. Sukh will present with increased attention to the right upper extremity, as well as increased joint protection /tone management; this will be evidenced by Sukh's ability to position the distal right upper extremity/hand on arm rest with TT tasks and/or on TT surface, 2 to 3 times per session, requiring minimal verbal cues from therapist to support positioning. 01/16/23 = NEW GOAL; max phys assist/mod verbal/visual cueing 3. Sukh will be modified independent with execution of home exercise program (upper extremity and functional activities) with support of family utilizing provided written and visual instructions from therapist. = 50% met; upgrading resistance/repetitions - Treatment 3 Descriptor Functional problem solving activities. Bimanual coordination. Attention to the affected UE. Replication of PVC pattern w/ S; able to imitate structure without errors w/ increased time x 1 joint for orientation . Seating swinging of small baseball bat. Striking of 3 1/ 2-inch ball. x 10 repetitions. Seated golfing. Putting. Bimanual coordination. Use of large slope. Increased distance being 'putted'. 2 Descriptor Tone Management. Positioning of the R hand on the TT w/ fingers in extended position, w/ slight wrist flex. Positioning of the R hand on arm rest w/ replication of PVC pipe tree. Exercises 7 Descriptor Elbow ext. TB #3 (modified place and hold x 3 sec w/ TB and muscle tapping to facilitate). 2 x 10. Elbow flex. Muscle tapping to facilitate. 2 x 10. [ End ] 6 Descriptor Sh ROM. Modified resisted (use of TT). TT Sh flex. 2 x 10 AROM. Resisted 3 x 10 TB #3. TT Sh ext. 2 x 10 AROM. Resisted 3 x 10. TB #3. TT Sh hor abd. 2 x 10 AROM. Resisted 3 x 10. TB #3. Sh abd. 2 x 10 AROM. Resisted 3 x 10. TB #3. 5 Descriptor Cane exercise. Seated elbow flex/ext w/ forearms pronated. 1 x 10. 4 Descriptor Digit/Hand strengthening exercises. Large dowel w/ TB # 5 resistance. x 5 sec hold. 1 x 10. Forearm pronated. 90 degrees forearm supination. 1 x 10. - Assessment Assessment of Improvement Sukh has demonstrated some progress over the last certification period in the areas of activity tolerance, endurance, strength (despite decreased AROM of R UE), and active right shoulder ROM ( extension). Progress is evidenced by therapist's ability to increase number of sets w/ resisted modified TT R UE strengthening exercises, environmental changes to increase demands w/ bimanual tasks, and decreased rest breaks between exercises. Sukh actively incorporates R hand w/ familiar tasks requiring cueing to support incorporation when able to complete task 1 handed and/or new activity. Sukh needs support for positioning R hand at rest out of flexed pattern utilizing arm rest and/or TT w/ dycem to support positioning; recommend working on increasing functional independence with positioning of R hand on arm rest and/or table. Recommend incorporating additional cane exercises as well. Hyperextension observed of IPJ of L thumb; joint deformities of multiple digits of the left hand likely d/t arthritis. Sukh benefits from handling, visual cues and environmental modifications to support motor planning of the right upper extremity. Continued outpatient OT is recommended to address ROM, strength, functional abilities , attention/awareness, bimanual coordination, and functional problem solving, with goal of incorporating right upper extremity in day- to-day life with engagement in functional and meaningful activities. - Plan Therapy Recommendations Continue with Current Program, Advance per Rehabilitation Protocol Comment 1 x a week x 10 weeks Frequency of Treatment Once a Week Therapeutic Contents Active Range of Motion, Adaptive Equipment Education, Client Education,Cognitive Skills Development,Functional Activities,Home Exercise Program,Joint Protection, Manual Therapy,Education, Neurodevelopment Treatment, Neuromuscular Re-Education, Self-Care,Stretching/ Flexibility Activities, Therapeutic Activities, Therapeutic Exercises, Modalities,Sensory Re- education Modalities As Needed,As Prescribed Additional Types of Modalities Heat/Cold/Paraffin/Ultrasound/ Contrast If you are in agreement with this Plan of Care, please return a signed and dated copy. I have reviewed this Plan of Care and certify that the skilled therapy services above are required to meet the patient?s needs. Physician Signature Date Printed Name and Credentials Clinical Instructor Signature Printed Name and Credentials
--- NOTE | 2023-01-23 15:30 | OT.OP.TRT ---
Visit Care Team Role Provider Type Delfino Epstein MD Attending Provider Physician Primary Care Provider Referring Provider Specialty: Family Practice Address: [address] [place] [address], [id number] Email: [email or web address] Occupational Therapy Treatment Note OT Outpatient Treatment Note - Adult Start: 05/18/21 12:52 Freq: Status: Active Protocol: Document 01/23/23 15:30 AMS (Rec: 01/24/23 12:17 AMS [id number]) OT Outpatient Adult Treatment Note Session Time Visit Start Time 12:30 Visit Stop Time 13:15 Total Visit Minutes 45 Visit Information Visit Number 11 - OT 2022 visits Plan of Care Dates 01/16/23 - 03/27/23 Insurance Information [facility]; no pre-auth req to annual plan max; max 80/combo Setting Treatment Setting Outpatient Care Visit Type Note Type Treatment Note General Information General Information Patient is a 64 year-old male referred to outpatient OT by PCP; patient was accompanied to initial eval by . 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 He was recently hospitalized 06/22/19 d/t 3 falls that occurred on the same day. He was d/c and then re-hospitalized in August 2019. He was identified to have low sodium. Post hospitalization patient had Home Health OT; Home Health HEP was designed as follows: shoulder flex; sh abd; sh hor abd; wrist ext; positioning of hand/wrist on towel; PROM of digits of L hand; passive elbow flexion/ext. HEP also includes writing of name and squeezing putty. Frequency is 1 x per day, 10 reps. PMH: significant for RA; blood clots; depression; diabetes mellitus I; falls; depression; heart attack; pacemaker; neuropathy; R elbow surgery. - Subjective Identification Type Name Identification Reconciled With Medical Record Observations Sukh was seen 1:1 for OT treatment session. No new concerns were indicated. Anali and her , Elvis, have been primarily overseeing Sukh's execution of exercises in the home (for SUPERVISOR, PT, and OT). Patient/Caregiver Compliance with Home Good Exercise Program Comment w/ family support - Objective Objective Measurements Please refer to below for progress towards meeting established OT goals. 05/16/20= avg 8.0 pounds of force w/ R music writer dynamometer II testing. Short Term Goals 1. 0-40 degrees active R sh extension. 01/16/23 = GOAL UPGRADED; 0-35 degrees R active sh ext GOALS MET -40 degrees passive R elbow ext. 11/07/22 0-30 degrees active R sh abd. *11/07/22 (modified blocking into randa-pattern) 0-20 degrees active R sh flexion. *MET 08/09/21; 0-45 degrees. 04/04/22 = 0-45 degrees . 01/16/23 = 0-45 degrees w/ typical randa pattern 0-20 degrees active R sh extension. *MET 08/09/21; 0-25 degrees. 06/13/22 = 0-35 degrees. 11/07/22 = 0-25 degrees . Able to separate x 5 pvc pipes and their joints, when given 7 opportunities, requiring no more than 1 model from therapist. *MET 01/10/22 Able to position right hand initially on cane vertical/ cane horizontally/golf club without physical assistance (x 3 attempts per session), requiring no more than 1-2 verbal cues from therapist, demonstrating improving functional problem solving, attention, and active incorporation of the right upper extremity/hand. *MET 08/25 Skilled Nursing Goals 1. Sukh will present with increased attention to the right upper extremity, as well as increased functional incorporation of the right upper extremity; this will be evidenced by active incorporation of the right upper extremity/hand with stabilization of objects at TT , 3 to 4 times per week based on family report requiring no more than 1-2 verbal cues per occasion. 01/16/23 = 50% met; min v.c. 2. Sukh will present with increased attention to the right upper extremity, as well as increased joint protection /tone management; this will be evidenced by Sukh's ability to position the distal right upper extremity/hand on arm rest with TT tasks and/or on TT surface, 2 to 3 times per session, requiring minimal verbal cues from therapist to support positioning. 01/16/23 = NEW GOAL; max phys assist/mod verbal/visual cueing 3. Sukh will be modified independent with execution of home exercise program (upper extremity and functional activities) with support of family utilizing provided written and visual instructions from therapist. = 50% met; upgrading resistance/repetitions - Treatment 3 Descriptor Functional problem solving activities. Bimanual coordination. Attention to the affected UE. Replication of PVC pattern w/ S; able to imitate structure without errors w/ increased time x 1 joint for orientation . Seating swinging of small baseball bat. Striking of 3 1/ 2-inch ball. x 10 repetitions. Seated golfing. Putting. Bimanual coordination. Use of large slope. Increased distance being 'putted'. 2 Descriptor Tone Management. Positioning of the R hand on the TT w/ fingers in extended position, w/ slight wrist flex. Positioning of the R hand on arm rest w/ replication of PVC pipe tree. Exercises 7 Descriptor Elbow ext. TB #3 (modified place and hold x 3 sec w/ TB and muscle tapping to facilitate). 2 x 10. Elbow flex. Muscle tapping to facilitate. 2 x 10. [ End ] 6 Descriptor Sh ROM. Modified resisted (use of TT). TT Sh flex. 2 x 10 AROM. Resisted 3 x 10 TB #3. TT Sh ext. 2 x 10 AROM. Resisted 3 x 10. TB #3. TT Sh hor abd. 2 x 10 AROM. Resisted 3 x 10. TB #3. Sh abd. 2 x 10 AROM. Resisted 3 x 10. TB #3. 5 Descriptor Cane exercise. Seated elbow flex/ext w/ forearms pronated. 1 x 10. 4 Descriptor Digit/Hand strengthening exercises. Large dowel w/ TB # 5 resistance. x 5 sec hold. 1 x 10. Forearm pronated. 90 degrees forearm supination. 1 x 10. - Assessment Assessment of Improvement Sukh needed support for positioning R hand out of flexed pattern utilizing R arm rest and/or TT w/ dycem to support positioning; recommend working on increasing functional independence with positioning of R hand on arm rest and/or table. It is important to note that posture and positioning of objects on TT being manipulated w/ L hand can impact Sukh's ability to maintain R arm on arm rest (at elbow level). Some frustration noted w/ golfing w/ increased slope and distance; will need to monitor and adjust activity as needed to support participation. Recommend incorporating additional cane exercises as well. Overall, good session. 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 Sukh benefits from handling, visual cues and environmental modifications to support motor planning of the right upper extremity. Continued outpatient OT is recommended to address ROM, strength, functional abilities , attention/awareness, bimanual coordination, and functional problem solving, with goal of incorporating right upper extremity in day- to-day life with engagement in functional and meaningful activities. Home Exercise Program No changes to HEP. - Plan Therapy Recommendations Continue with Current Program, Advance per Rehabilitation Protocol
--- NOTE | 2023-01-30 14:43 | OT.OP.TRT ---
Visit Care Team Role Provider Type Delfino Epstein MD Attending Provider Physician Primary Care Provider Referring Provider Specialty: Family Practice Address: [address] [place] [address], [id number] Email: [email or web address] Occupational Therapy Treatment Note OT Outpatient Treatment Note - Adult Start: 05/18/21 12:52 Freq: Status: Active Protocol: Document 01/30/23 14:39 AMS (Rec: 01/30/23 14:43 AMS [id number]) OT Outpatient Adult Treatment Note Session Time Visit Start Time 12:30 Visit Stop Time 13:15 Total Visit Minutes 45 Visit Information Visit Number 12 - OT 2022 visits Plan of Care Dates 01/16/23 - 03/27/23 Insurance Information [facility]; no pre-auth req to annual plan max; max 80/combo Setting Treatment Setting Outpatient Care Visit Type Note Type Treatment Note General Information General Information Patient is a 64 year-old male referred to outpatient OT by PCP; patient was accompanied to initial eval by . 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 He was recently hospitalized 06/22/19 d/t 3 falls that occurred on the same day. He was d/c and then re-hospitalized in August 2019. He was identified to have low sodium. Post hospitalization patient had Home Health OT; Home Health HEP was designed as follows: shoulder flex; sh abd; sh hor abd; wrist ext; positioning of hand/wrist on towel; PROM of digits of L hand; passive elbow flexion/ext. HEP also includes writing of name and squeezing putty. Frequency is 1 x per day, 10 reps. PMH: significant for RA; blood clots; depression; diabetes mellitus I; falls; depression; heart attack; pacemaker; neuropathy; R elbow surgery. - Subjective Identification Type Name Identification Reconciled With Medical Record Observations Sukh was seen 1:1 for OT treatment session. No new concerns were indicated. 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 Patient/Caregiver Compliance with Home Good Exercise Program Comment w/ family support - Objective Objective Measurements Please refer to below for progress towards meeting established OT goals. 05/16/20= avg 8.0 pounds of force w/ R elevator service mechanic dynamometer II testing. Short Term Goals 1. 0-40 degrees active R sh extension. 01/16/23 = GOAL UPGRADED; 0-35 degrees R active sh ext GOALS MET -40 degrees passive R elbow ext. 11/07/22 0-30 degrees active R sh abd. *11/07/22 (modified blocking into randa-pattern) 0-20 degrees active R sh flexion. *MET 08/09/21; 0-45 degrees. 04/04/22 = 0-45 degrees . 01/16/23 = 0-45 degrees w/ typical randa pattern 0-20 degrees active R sh extension. *MET 08/09/21; 0-25 degrees. 06/13/22 = 0-35 degrees. 11/07/22 = 0-25 degrees . Able to separate x 5 pvc pipes and their joints, when given 7 opportunities, requiring no more than 1 model from therapist. *MET 01/10/22 Able to position right hand initially on cane vertical/ cane horizontally/golf club without physical assistance (x 3 attempts per session), requiring no more than 1-2 verbal cues from therapist, demonstrating improving functional problem solving, attention, and active incorporation of the right upper extremity/hand. *MET 08/25 Assisted Goals 1. Sukh will present with increased attention to the right upper extremity, as well as increased functional incorporation of the right upper extremity; this will be evidenced by active incorporation of the right upper extremity/hand with stabilization of objects at TT , 3 to 4 times per week based on family report requiring no more than 1-2 verbal cues per occasion. 01/16/23 = 50% met; min v.c. 2. Sukh will present with increased attention to the right upper extremity, as well as increased joint protection /tone management; this will be evidenced by Sukh's ability to position the distal right upper extremity/hand on arm rest with TT tasks and/or on TT surface, 2 to 3 times per session, requiring minimal verbal cues from therapist to support positioning. 01/16/23 = NEW GOAL; max phys assist/mod verbal/visual cueing 3. Sukh will be modified independent with execution of home exercise program (upper extremity and functional activities) with support of family utilizing provided written and visual instructions from therapist. = 50% met; upgrading resistance/repetitions - Treatment 3 Descriptor Functional problem solving activities. Bimanual coordination. Attention to the affected UE. Replication of PVC pattern w/ CGA x 1. Seating swinging of small baseball bat. Striking of 3 1/ 2-inch ball. x 10 repetitions. Seated golfing. Putting. Bimanual coordination. Use of large slope. Increased distance being 'putted'. 2 Descriptor Tone Management. Positioning of the R hand on the TT w/ fingers in extended position, w/ slight wrist flex. Positioning of the R hand on arm rest w/ replication of PVC pipe tree. Exercises 7 Descriptor Elbow ext. TB #3 (modified place and hold x 3 sec w/ TB and muscle tapping to facilitate). 2 x 10. Elbow flex. Muscle tapping to facilitate. 2 x 10. [ End ] 6 Descriptor Sh ROM. Modified resisted (use of TT). TT Sh flex. 2 x 10 AROM. Resisted 3 x 10 TB #3. TT Sh ext. 2 x 10 AROM. Resisted 3 x 10. TB #3. TT Sh hor abd. 2 x 10 AROM. Resisted 3 x 10. TB #3. Sh abd. 2 x 10 AROM. Resisted 3 x 10. TB #3. 5 Descriptor Cane exercise. Seated elbow flex/ext w/ forearms pronated. 1 x 10. 4 Descriptor Digit/Hand strengthening exercises. Large dowel w/ TB # 5 resistance. x 5 sec hold. 1 x 10. Forearm pronated. 90 degrees forearm supination. 1 x 10. - Assessment Assessment of Improvement Increased cueing during today' s session to discourage L UE assist w/ completion of TT ROM and resisted exercises. CGA w / replication of 1 PVC pipe tree; difficulty w/ replication of pattern w/ smaller PVC pipes near joints. Good success w/ putting at large distance and utilizing large 'slope'; recommend trialing a different approach to task completion (1 small slope/1 larger slope). Recommend incorporating additional cane exercises. Recommend working on increasing functional independence with positioning of R hand on arm rest and/or table. Overall, good session. 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 Sukh benefits from handling, visual cues and environmental modifications to support motor planning of the right upper extremity. Continued outpatient OT is recommended to address ROM, strength, functional abilities , attention/awareness, bimanual coordination, and functional problem solving, with goal of incorporating right upper extremity in day- to-day life with engagement in functional and meaningful activities. Home Exercise Program No changes to HEP. - Plan Therapy Recommendations Continue with Current Program, Advance per Rehabilitation Protocol
--- NOTE | 2023-02-06 14:23 | OT.OP.TRT ---
Visit Care Team Role Provider Type Delfino Epstein MD Attending Provider Physician Primary Care Provider Referring Provider Specialty: Family Practice Address: [address] [place] [address], [id number] Email: [email or web address] Occupational Therapy Treatment Note OT Outpatient Treatment Note - Adult Start: 05/18/21 12:52 Freq: Status: Active Protocol: Document 02/06/23 14:17 AMS (Rec: 02/06/23 14:22 AMS [id number]) OT Outpatient Adult Treatment Note Session Time Visit Start Time 13:30 Visit Stop Time 14:13 Total Visit Minutes 43 Visit Information Visit Number 13 - OT 2022 visits Plan of Care Dates 01/16/23 - 03/27/23 Insurance Information [facility]; no pre-auth req to annual plan max; max 80/combo Setting Treatment Setting Outpatient Care Visit Type Note Type Treatment Note General Information General Information Patient is a 64 year-old male referred to outpatient OT by PCP; patient was accompanied to initial eval by . 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 He was recently hospitalized 06/22/19 d/t 3 falls that occurred on the same day. He was d/c and then re-hospitalized in August 2019. He was identified to have low sodium. Post hospitalization patient had Home Health OT; Home Health HEP was designed as follows: shoulder flex; sh abd; sh hor abd; wrist ext; positioning of hand/wrist on towel; PROM of digits of L hand; passive elbow flexion/ext. HEP also includes writing of name and squeezing putty. Frequency is 1 x per day, 10 reps. PMH: significant for RA; blood clots; depression; diabetes mellitus I; falls; depression; heart attack; pacemaker; neuropathy; R elbow surgery. - Subjective Identification Type Name Identification Reconciled With Medical Record Observations Sukh was seen 1:1 for OT treatment session. No new concerns were indicated. Anali and her , Elvis, have been primarily overseeing Sukh's execution of exercises in the home (for SPIKE MAKER, PT, and OT). Patient/Caregiver Compliance with Home Good Exercise Program Comment w/ family support - Objective Objective Measurements Please refer to below for progress towards meeting established OT goals. 05/16/20= avg 8.0 pounds of force w/ R construction grip dynamometer II testing. Short Term Goals 1. 0-40 degrees active R sh extension. 01/16/23 = GOAL UPGRADED; 0-35 degrees R active sh ext GOALS MET -40 degrees passive R elbow ext. 11/07/22 0-30 degrees active R sh abd. *11/07/22 (modified blocking into randa-pattern) 0-20 degrees active R sh flexion. *MET 08/09/21; 0-45 degrees. 04/04/22 = 0-45 degrees . 01/16/23 = 0-45 degrees w/ typical randa pattern 0-20 degrees active R sh extension. *MET 08/09/21; 0-25 degrees. 06/13/22 = 0-35 degrees. 11/07/22 = 0-25 degrees . Able to separate x 5 pvc pipes and their joints, when given 7 opportunities, requiring no more than 1 model from therapist. *MET 01/10/22 Able to position right hand initially on cane vertical/ cane horizontally/golf club without physical assistance (x 3 attempts per session), requiring no more than 1-2 verbal cues from therapist, demonstrating improving functional problem solving, attention, and active incorporation of the right upper extremity/hand. *MET 08/25 Usp Goals 1. Sukh will present with increased attention to the right upper extremity, as well as increased functional incorporation of the right upper extremity; this will be evidenced by active incorporation of the right upper extremity/hand with stabilization of objects at TT , 3 to 4 times per week based on family report requiring no more than 1-2 verbal cues per occasion. 01/16/23 = 50% met; min v.c. 2. Sukh will present with increased attention to the right upper extremity, as well as increased joint protection /tone management; this will be evidenced by Sukh's ability to position the distal right upper extremity/hand on arm rest with TT tasks and/or on TT surface, 2 to 3 times per session, requiring minimal verbal cues from therapist to support positioning. 01/16/23 = NEW GOAL; max phys assist/mod verbal/visual cueing 3. Sukh will be modified independent with execution of home exercise program (upper extremity and functional activities) with support of family utilizing provided written and visual instructions from therapist. = 50% met; upgrading resistance/repetitions - Treatment 3 Descriptor Functional problem solving activities. Bimanual coordination. Attention to the affected UE. Replication of PVC pattern w/ CGA x 1. Seating swinging of small baseball bat. Striking of 3 1/ 2-inch ball. x 15 repetitions. Seated golfing. Putting. Bimanual coordination. Use of large slope. Increased distance being 'putted'. 2 Descriptor Tone Management. Positioning of the R hand on the TT w/ fingers in extended position, w/ slight wrist flex. Positioning of the R hand on arm rest w/ replication of PVC pipe tree. Exercises 7 Descriptor Elbow ext. TB #3 (modified place and hold x 3 sec w/ TB and muscle tapping to facilitate). 2 x 10. Elbow flex. Muscle tapping to facilitate. 2 x 10. [ End ] 6 Descriptor Sh ROM. Modified resisted (use of TT). TT Sh flex. 2 x 10 AROM. Resisted 3 x 10 TB #3. TT Sh ext. 2 x 10 AROM. Resisted 3 x 10. TB #3. TT Sh hor abd. 2 x 10 AROM. Resisted 3 x 10. TB #3. Sh abd. 2 x 10 AROM. Resisted 3 x 10. TB #3. 5 Descriptor Cane exercise. Seated elbow flex/ext w/ forearms pronated. 1 x 10. 4 Descriptor Digit/Hand strengthening exercises. Large dowel w/ TB # 5 resistance. x 5 sec hold. 1 x 10. Forearm pronated. 90 degrees forearm supination. 1 x 10. - Assessment Assessment of Improvement No cueing needed to discourage L UE assist w/ completion of TT ROM and resisted exercises; will need to monitor other proximal compensatory strategies (trunk movement). CGA w/ replication of 1 PVC pipe tree to ensure good adherence between joint and PVC pipe. Good success w/ putting at large distance and with even larger 'slope'; recommend trialing a different approach to task completion and/or adding problem solving component/motor approach. Recommend incorporating additional cane exercises. Assist w/ positioning of dycem ; decreased phys assist for positioning of R hand on dycem . Recommend working on increasing functional independence with positioning of R hand on arm rest and/or table. Overall, good session. 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 Sukh benefits from handling, visual cues and environmental modifications to support motor planning of the right upper extremity. Continued outpatient OT is recommended to address ROM, strength, functional abilities , attention/awareness, bimanual coordination, and functional problem solving, with goal of incorporating right upper extremity in day- to-day life with engagement in functional and meaningful activities. Home Exercise Program No changes to HEP. - Plan Therapy Recommendations Continue with Current Program, Advance per Rehabilitation Protocol
--- NOTE | 2023-02-11 13:39 | OT.OP.TRT ---
Visit Care Team Role Provider Type Delfino Epstein MD Attending Provider Physician Primary Care Provider Referring Provider Specialty: Family Practice Address: [address] [place] [address], [id number] Email: [email or web address] Occupational Therapy Treatment Note OT Outpatient Treatment Note - Adult Start: 05/18/21 12:52 Freq: Status: Active Protocol: Document 02/11/23 13:36 AMS (Rec: 02/11/23 13:39 AMS [id number]) OT Outpatient Adult Treatment Note Session Time Visit Start Time 12:30 Visit Stop Time 13:15 Total Visit Minutes 45 Visit Information Visit Number 14 - OT 2022 visits Plan of Care Dates 01/16/23 - 03/27/23 Insurance Information [facility]; no pre-auth req to annual plan max; max 80/combo Setting Treatment Setting Outpatient Care Visit Type Note Type Treatment Note General Information General Information Patient is a 67 year-old male referred to outpatient OT by PCP; patient was accompanied to initial eval by . 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 Patient has been seen in outpatient clinic at [facility] for OT, PT, and RN PEDIATRIC. He was recently hospitalized 06/22/19 d/t 3 falls that occurred on the same day. He was d/c and then re-hospitalized in August 2019. He was identified to have low sodium. Post hospitalization patient had Home Health OT; Home Health HEP was designed as follows: shoulder flex; sh abd; sh hor abd; wrist ext; positioning of hand/wrist on towel; PROM of digits of L hand; passive elbow flexion/ext. HEP also includes writing of name and squeezing putty. Frequency is 1 x per day, 10 reps. PMH: significant for RA; blood clots; depression; diabetes mellitus I; falls; depression; heart attack; pacemaker; neuropathy; R elbow surgery. - Subjective Identification Type Name Identification Reconciled With Medical Record Observations Sukh was seen 1:1 for OT treatment session. No new concerns were indicated. Anali and her , Elvis, have been primarily overseeing Sukh's execution of exercises in the home (for RN PEDIATRIC, PT, and OT). Patient/Caregiver Compliance with Home Good Exercise Program Comment w/ family support - Objective Objective Measurements Please refer to below for progress towards meeting established OT goals. 05/16/20= avg 8.0 pounds of force w/ R clam shucker dynamometer II testing. Short Term Goals 1. 0-40 degrees active R sh extension. 01/16/23 = GOAL UPGRADED; 0-35 degrees R active sh ext GOALS MET -40 degrees passive R elbow ext. 11/07/22 0-30 degrees active R sh abd. *11/07/22 (modified blocking into randa-pattern) 0-20 degrees active R sh flexion. *MET 08/09/21; 0-45 degrees. 04/04/22 = 0-45 degrees . 01/16/23 = 0-45 degrees w/ typical randa pattern 0-20 degrees active R sh extension. *MET 08/09/21; 0-25 degrees. 06/13/22 = 0-35 degrees. 11/07/22 = 0-25 degrees . Able to separate x 5 pvc pipes and their joints, when given 7 opportunities, requiring no more than 1 model from therapist. *MET 01/10/22 Able to position right hand initially on cane vertical/ cane horizontally/golf club without physical assistance (x 3 attempts per session), requiring no more than 1-2 verbal cues from therapist, demonstrating improving functional problem solving, attention, and active incorporation of the right upper extremity/hand. *MET 08/25 Skilled Nursing Goals 1. Sukh will present with increased attention to the right upper extremity, as well as increased functional incorporation of the right upper extremity; this will be evidenced by active incorporation of the right upper extremity/hand with stabilization of objects at TT , 3 to 4 times per week based on family report requiring no more than 1-2 verbal cues per occasion. 01/16/23 = 50% met; min v.c. 2. Sukh will present with increased attention to the right upper extremity, as well as increased joint protection /tone management; this will be evidenced by Sukh's ability to position the distal right upper extremity/hand on arm rest with TT tasks and/or on TT surface, 2 to 3 times per session, requiring minimal verbal cues from therapist to support positioning. 01/16/23 = NEW GOAL; max phys assist/mod verbal/visual cueing 3. Sukh will be modified independent with execution of home exercise program (upper extremity and functional activities) with support of family utilizing provided written and visual instructions from therapist. = 50% met; upgrading resistance/repetitions - Treatment 3 Descriptor Functional problem solving activities. Bimanual coordination. Attention to the affected UE. Replication of PVC pattern w/ min phys assist x 1. Seating swinging of small baseball bat. Striking of 3 1/ 2-inch ball. x 15 repetitions. Seated golfing. Putting. Bimanual coordination. Use of large slope. 2 Descriptor Tone Management. Positioning of the R hand on the TT w/ fingers in extended position, w/ slight wrist flex. Positioning of the R hand on arm rest w/ replication of PVC pipe tree. Exercises 7 Descriptor Elbow ext. TB #3 (modified place and hold x 3 sec w/ TB and muscle tapping to facilitate). 2 x 10. Elbow flex. Muscle tapping to facilitate. 2 x 10. [ End ] 6 Descriptor Sh ROM. Modified resisted (use of TT). TT Sh flex. 2 x 10 AROM. Resisted 3 x 10 TB #3. TT Sh ext. 2 x 10 AROM. Resisted 3 x 10. TB #4. TT Sh hor abd. 2 x 10 AROM. Resisted 3 x 10. TB #3. Sh abd. 2 x 10 AROM. Resisted 3 x 10. TB #3. 4 Descriptor Digit/Hand strengthening exercises. Large dowel w/ TB # 5 resistance. x 5 sec hold. 1 x 10. Forearm pronated. 90 degrees forearm supination. 1 x 10. - Assessment Assessment of Improvement No cueing needed to discourage L UE assist w/ completion of TT ROM and resisted exercises; will need to monitor other proximal compensatory strategies (trunk movement). Min phys assist w/ replication of 1 PVC pipe tree to ensure good adherence between joint and PVC pipe d/t approach building structure w/ 1-handed execution. Good success w/ putting at large distance and with even larger 'slope'; recommend trialing a different approach to task completion and/or adding problem solving component/motor approach. Recommend incorporating additional cane exercises. (-) spontaneous use of dycem positioned on arm rest while seated in chair. Recommend working on increasing functional independence with positioning of R hand on arm rest and/or table. Overall, good session. 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 Sukh benefits from handling, visual cues and environmental modifications to support motor planning of the right upper extremity. Continued outpatient OT is recommended to address ROM, strength, functional abilities , attention/awareness, bimanual coordination, and functional problem solving, with goal of incorporating right upper extremity in day- to-day life with engagement in functional and meaningful activities. Home Exercise Program No changes to HEP. - Plan Therapy Recommendations Continue with Current Program, Advance per Rehabilitation Protocol
--- NOTE | 2023-02-20 15:30 | OT.OP.TRT ---
Visit Care Team Role Provider Type Delfino Epstein MD Attending Provider Physician Primary Care Provider Referring Provider Specialty: Family Practice Address: [address] [place] [address], [id number] Email: [email or web address] Occupational Therapy Treatment Note OT Outpatient Treatment Note - Adult Start: 05/18/21 12:52 Freq: Status: Active Protocol: Document 02/20/23 15:30 AMS (Rec: 02/21/23 12:16 AMS [id number]) OT Outpatient Adult Treatment Note Session Time Visit Start Time 12:30 Visit Stop Time 13:15 Total Visit Minutes 45 Visit Information Visit Number 15 - OT 2022 visits Plan of Care Dates 01/16/23 - 03/27/23 Insurance Information [facility]; no pre-auth req to annual plan max; max 80/combo Setting Treatment Setting Outpatient Care Visit Type Note Type Treatment Note General Information General Information Patient is a 67 year-old male referred to outpatient OT by PCP; patient was accompanied to initial eval by . 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 Patient has been seen in outpatient clinic at [facility] for OT, PT, and BAND MASTER. He was recently hospitalized 06/22/19 d/t 3 falls that occurred on the same day. He was d/c and then re-hospitalized in August 2019. He was identified to have low sodium. Post hospitalization patient had Home Health OT; Home Health HEP was designed as follows: shoulder flex; sh abd; sh hor abd; wrist ext; positioning of hand/wrist on towel; PROM of digits of L hand; passive elbow flexion/ext. HEP also includes writing of name and squeezing putty. Frequency is 1 x per day, 10 reps. PMH: significant for RA; blood clots; depression; diabetes mellitus I; falls; depression; heart attack; pacemaker; neuropathy; R elbow surgery. - Subjective Identification Type Name Identification Reconciled With Medical Record Observations Sukh was seen 1:1 for OT treatment session. No new concerns were indicated. Anali and her , Elvis, have been primarily overseeing Sukh's execution of exercises in the home (for BAND MASTER, PT, and OT). Patient/Caregiver Compliance with Home Good Exercise Program Comment w/ family support - Objective Objective Measurements Please refer to below for progress towards meeting established OT goals. 05/16/20= avg 8.0 pounds of force w/ R flower shop laborer/designer dynamometer II testing. Short Term Goals 1. 0-40 degrees active R sh extension. 01/16/23 = GOAL UPGRADED; 0-35 degrees R active sh ext GOALS MET -40 degrees passive R elbow ext. 11/07/22 0-30 degrees active R sh abd. *11/07/22 (modified blocking into randa-pattern) 0-20 degrees active R sh flexion. *MET 08/09/21; 0-45 degrees. 04/04/22 = 0-45 degrees . 01/16/23 = 0-45 degrees w/ typical randa pattern 0-20 degrees active R sh extension. *MET 08/09/21; 0-25 degrees. 06/13/22 = 0-35 degrees. 11/07/22 = 0-25 degrees . Able to separate x 5 pvc pipes and their joints, when given 7 opportunities, requiring no more than 1 model from therapist. *MET 01/10/22 Able to position right hand initially on cane vertical/ cane horizontally/golf club without physical assistance (x 3 attempts per session), requiring no more than 1-2 verbal cues from therapist, demonstrating improving functional problem solving, attention, and active incorporation of the right upper extremity/hand. *MET 08/25 Residential Goals 1. Sukh will present with increased attention to the right upper extremity, as well as increased functional incorporation of the right upper extremity; this will be evidenced by active incorporation of the right upper extremity/hand with stabilization of objects at TT , 3 to 4 times per week based on family report requiring no more than 1-2 verbal cues per occasion. 01/16/23 = 50% met; min v.c. 2. Sukh will present with increased attention to the right upper extremity, as well as increased joint protection /tone management; this will be evidenced by Sukh's ability to position the distal right upper extremity/hand on arm rest with TT tasks and/or on TT surface, 2 to 3 times per session, requiring minimal verbal cues from therapist to support positioning. 01/16/23 = NEW GOAL; max phys assist/mod verbal/visual cueing 3. Sukh will be modified independent with execution of home exercise program (upper extremity and functional activities) with support of family utilizing provided written and visual instructions from therapist. = 50% met; upgrading resistance/repetitions - Treatment 3 Descriptor Functional problem solving activities. Bimanual coordination. Attention to the affected UE. Replication of PVC pattern w/ min phys assist x 1. Seating swinging of small baseball bat. Striking of 3 1/ 2-inch ball. x 15 repetitions. Seated golfing. Putting. Bimanual coordination. Use of large slope. 2 Descriptor Tone Management. Positioning of the R hand on the TT w/ fingers in extended position, w/ slight wrist flex. Positioning of the R hand on arm rest w/ replication of PVC pipe tree. Exercises 7 Descriptor Elbow ext. TB #3 (modified place and hold x 3 sec w/ TB and muscle tapping to facilitate). 2 x 10. Elbow flex. Muscle tapping to facilitate. 2 x 10. [ End ] 6 Descriptor Sh ROM. Modified resisted (use of TT). TT Sh flex. 2 x 10 AROM. Resisted 3 x 10 TB #3. TT Sh ext. 2 x 10 AROM. Resisted 3 x 10. TB #4. TT Sh hor abd. 2 x 10 AROM. Resisted 3 x 10. TB #3. Sh abd. 2 x 10 AROM. Resisted 3 x 10. TB #3. 4 Descriptor Digit/Hand strengthening exercises. Large dowel w/ TB # 5 resistance. x 5 sec hold. 1 x 10. Forearm pronated. 90 degrees forearm supination. 1 x 10. - Assessment Assessment of Improvement No cueing needed to discourage L UE assist w/ completion of TT ROM and resisted exercises; will need to monitor and/or provided phys cueing to discourage other proximal compensatory strategies (trunk movement) as able. No phys assist required with imitation of PVC structure and/or taking joints and PVC parts apart; however, therapist does provide set-up at TT level to discourage 1-handed execution . Decreased success w/ putting ; this may have been d/t carpet versus plastic mat versus tile floor versus foam surface mat/yoga mat. Recommend incorporating additional cane exercises. (-) spontaneous use of dycem positioned on arm rest while seated in chair. Recommend working on increasing functional independence with positioning of R hand on arm rest and/or table. Overall, good session. 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 Sukh benefits from handling, visual cues and environmental modifications to support motor planning of the right upper extremity. Continued outpatient OT is recommended to address ROM, strength, functional abilities , attention/awareness, bimanual coordination, and functional problem solving, with goal of incorporating right upper extremity in day- to-day life with engagement in functional and meaningful activities. Home Exercise Program No changes to HEP. - Plan Therapy Recommendations Continue with Current Program, Advance per Rehabilitation Protocol
--- NOTE | 2023-02-27 14:41 | OT.OP.TRT ---
Visit Care Team Role Provider Type Delfino Epstein MD Attending Provider Physician Primary Care Provider Referring Provider Specialty: Family Practice Address: [address] [place] [address], [id number] Email: [email or web address] Occupational Therapy Treatment Note OT Outpatient Treatment Note - Adult Start: 05/18/21 12:52 Freq: Status: Active Protocol: Document 02/27/23 14:38 AMS (Rec: 02/27/23 14:41 AMS [id number]) OT Outpatient Adult Treatment Note Session Time Visit Start Time 12:30 Visit Stop Time 13:15 Visit Information Visit Number 16 - OT 2022 visits Plan of Care Dates 01/16/23 - 03/27/23 Insurance Information [facility]; no pre-auth req to annual plan max; max 80/combo Setting Treatment Setting Outpatient Care Visit Type Note Type Treatment Note General Information General Information Patient is a 67 year-old male referred to outpatient OT by PCP; patient was accompanied to initial eval by . 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 Patient has been seen in outpatient clinic at [facility] for OT, PT, and TERRAZZO LABORER. He was recently hospitalized 06/22/19 d/t 3 falls that occurred on the same day. He was d/c and then re-hospitalized in August 2019. He was identified to have low sodium. Post hospitalization patient had Home Health OT; Home Health HEP was designed as follows: shoulder flex; sh abd; sh hor abd; wrist ext; positioning of hand/wrist on towel; PROM of digits of L hand; passive elbow flexion/ext. HEP also includes writing of name and squeezing putty. Frequency is 1 x per day, 10 reps. PMH: significant for RA; blood clots; depression; diabetes mellitus I; falls; depression; heart attack; pacemaker; neuropathy; R elbow surgery. - Subjective Identification Type Name Identification Reconciled With Medical Record Observations Sukh was seen 1:1 for OT treatment session. No new concerns were indicated. Anali and her , Elvis, have been primarily overseeing Sukh's execution of exercises in the home (for TERRAZZO LABORER, PT, and OT). Patient/Caregiver Compliance with Home Good Exercise Program Comment w/ family support - Objective Objective Measurements Please refer to below for progress towards meeting established OT goals. 05/16/20= avg 8.0 pounds of force w/ R parking assistant dynamometer II testing. Short Term Goals 1. 0-40 degrees active R sh extension. 01/16/23 = GOAL UPGRADED; 0-35 degrees R active sh ext GOALS MET -40 degrees passive R elbow ext. 11/07/22 0-30 degrees active R sh abd. *11/07/22 (modified blocking into randa-pattern) 0-20 degrees active R sh flexion. *MET 08/09/21; 0-45 degrees. 04/04/22 = 0-45 degrees . 01/16/23 = 0-45 degrees w/ typical randa pattern 0-20 degrees active R sh extension. *MET 08/09/21; 0-25 degrees. 06/13/22 = 0-35 degrees. 11/07/22 = 0-25 degrees . Able to separate x 5 pvc pipes and their joints, when given 7 opportunities, requiring no more than 1 model from therapist. *MET 01/10/22 Able to position right hand initially on cane vertical/ cane horizontally/golf club without physical assistance (x 3 attempts per session), requiring no more than 1-2 verbal cues from therapist, demonstrating improving functional problem solving, attention, and active incorporation of the right upper extremity/hand. *MET 08/25 Mutual Fund Sales Agent Goals 1. Sukh will present with increased attention to the right upper extremity, as well as increased functional incorporation of the right upper extremity; this will be evidenced by active incorporation of the right upper extremity/hand with stabilization of objects at TT , 3 to 4 times per week based on family report requiring no more than 1-2 verbal cues per occasion. 01/16/23 = 50% met; min v.c. 2. Sukh will present with increased attention to the right upper extremity, as well as increased joint protection /tone management; this will be evidenced by Sukh's ability to position the distal right upper extremity/hand on arm rest with TT tasks and/or on TT surface, 2 to 3 times per session, requiring minimal verbal cues from therapist to support positioning. 01/16/23 = NEW GOAL; max phys assist/mod verbal/visual cueing 3. Sukh will be modified independent with execution of home exercise program (upper extremity and functional activities) with support of family utilizing provided written and visual instructions from therapist. = 50% met; upgrading resistance/repetitions - Treatment 3 Descriptor Functional problem solving activities. Bimanual coordination. Attention to the affected UE. Replication of PVC pattern w/ min phys assist x 1. Seating swinging of small baseball bat. Striking of 3 1/ 2-inch ball. x 15 repetitions. Seated golfing. Putting. Bimanual coordination. 2 slopes; 1 small and 1 large slope. 2 Descriptor Tone Management. Positioning of the R hand on the TT w/ fingers in extended position, w/ slight wrist flex. Positioning of the R hand on arm rest w/ replication of PVC pipe tree. Exercises 7 Descriptor Elbow ext. TB #3 (modified place and hold x 3 sec w/ TB and muscle tapping to facilitate). 2 x 10. Elbow flex. Muscle tapping to facilitate. 2 x 10. [ End ] 6 Descriptor Sh ROM. Modified resisted (use of TT). TT Sh flex. 2 x 10 AROM. Resisted 3 x 10 TB #3. TT Sh ext. 2 x 10 AROM. Resisted 3 x 10. TB #4. TT Sh hor abd. 2 x 10 AROM. Resisted 3 x 10. TB #3. Sh abd. 2 x 10 AROM. Resisted 3 x 10. TB #3. 4 Descriptor Digit/Hand strengthening exercises. Large dowel w/ TB # 5 resistance. x 5 sec hold. 1 x 10. Forearm pronated. 90 degrees forearm supination. 1 x 10. - Assessment Assessment of Improvement No cueing needed to discourage L UE assist w/ completion of TT ROM and resisted exercises; will need to monitor and/or provided phys cueing to discourage other proximal compensatory strategies (trunk movement) as able. No phys assist required with imitation of PVC structure and/or taking joints and PVC parts apart; however, therapist does provide set-up at TT level to discourage 1-handed execution (with breakdown). Increased success w/ putting compared to previous session; able to incorporate 2 slopes. Feet were positioned on foam/yoga mat. Recommend incorporating additional cane exercises. (-) spontaneous use of dycem positioned on arm rest while seated in chair. Recommend working on increasing functional independence with positioning of R hand on arm rest and/or table. Overall, good session. 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 Sukh benefits from handling, visual cues and environmental modifications to support motor planning of the right upper extremity. Continued outpatient OT is recommended to address ROM, strength, functional abilities , attention/awareness, bimanual coordination, and functional problem solving, with goal of incorporating right upper extremity in day- to-day life with engagement in functional and meaningful activities. Home Exercise Program No changes to HEP. - Plan Therapy Recommendations Continue with Current Program, Advance per Rehabilitation Protocol
--- NOTE | 2023-03-06 14:36 | OT.OP.TRT ---
Visit Care Team Role Provider Type Delfino Epstein MD Attending Provider Physician Primary Care Provider Referring Provider Specialty: Family Practice Address: [address] [place] [address], [id number] Email: [email or web address] Occupational Therapy Treatment Note OT Outpatient Treatment Note - Adult Start: 05/18/21 12:52 Freq: Status: Active Protocol: Document 03/06/23 14:33 AMS (Rec: 03/06/23 14:36 AMS [id number]) OT Outpatient Adult Treatment Note Session Time Visit Start Time 12:20 Visit Stop Time 13:05 Total Visit Minutes 45 Visit Information Visit Number 17 - OT 2022 visits Plan of Care Dates 01/16/23 - 03/27/23 Insurance Information [facility]; no pre-auth req to annual plan max; max 80/combo Setting Treatment Setting Outpatient Care Visit Type Note Type Treatment Note General Information General Information Patient is a 67 year-old male referred to outpatient OT by PCP; patient was accompanied to initial eval by . 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 Patient has been seen in outpatient clinic at [facility] for OT, PT, and EDGE TRIMMER. He was recently hospitalized 06/22/19 d/t 3 falls that occurred on the same day. He was d/c and then re-hospitalized in August 2019. He was identified to have low sodium. Post hospitalization patient had Home Health OT; Home Health HEP was designed as follows: shoulder flex; sh abd; sh hor abd; wrist ext; positioning of hand/wrist on towel; PROM of digits of L hand; passive elbow flexion/ext. HEP also includes writing of name and squeezing putty. Frequency is 1 x per day, 10 reps. PMH: significant for RA; blood clots; depression; diabetes mellitus I; falls; depression; heart attack; pacemaker; neuropathy; R elbow surgery. - Subjective Identification Type Name Identification Reconciled With Medical Record Observations Sukh was seen 1:1 for OT treatment session. No new concerns were indicated. Anali and her , Elvis, have been primarily overseeing Sukh's execution of exercises in the home (for EDGE TRIMMER, PT, and OT). Patient/Caregiver Compliance with Home Good Exercise Program Comment w/ family support - Objective Objective Measurements Please refer to below for progress towards meeting established OT goals. 05/16/20= avg 8.0 pounds of force w/ R dispatcher maintenance dynamometer II testing. Short Term Goals 1. 0-40 degrees active R sh extension. 01/16/23 = GOAL UPGRADED; 0-35 degrees R active sh ext GOALS MET -40 degrees passive R elbow ext. 11/07/22 0-30 degrees active R sh abd. *11/07/22 (modified blocking into randa-pattern) 0-20 degrees active R sh flexion. *MET 08/09/21; 0-45 degrees. 04/04/22 = 0-45 degrees . 01/16/23 = 0-45 degrees w/ typical randa pattern 0-20 degrees active R sh extension. *MET 08/09/21; 0-25 degrees. 06/13/22 = 0-35 degrees. 11/07/22 = 0-25 degrees . Able to separate x 5 pvc pipes and their joints, when given 7 opportunities, requiring no more than 1 model from therapist. *MET 01/10/22 Able to position right hand initially on cane vertical/ cane horizontally/golf club without physical assistance (x 3 attempts per session), requiring no more than 1-2 verbal cues from therapist, demonstrating improving functional problem solving, attention, and active incorporation of the right upper extremity/hand. *MET 08/25 Sweatband Maker Goals 1. Sukh will present with increased attention to the right upper extremity, as well as increased functional incorporation of the right upper extremity; this will be evidenced by active incorporation of the right upper extremity/hand with stabilization of objects at TT , 3 to 4 times per week based on family report requiring no more than 1-2 verbal cues per occasion. 01/16/23 = 50% met; min v.c. 2. Sukh will present with increased attention to the right upper extremity, as well as increased joint protection /tone management; this will be evidenced by Sukh's ability to position the distal right upper extremity/hand on arm rest with TT tasks and/or on TT surface, 2 to 3 times per session, requiring minimal verbal cues from therapist to support positioning. 01/16/23 = NEW GOAL; max phys assist/mod verbal/visual cueing 3. Sukh will be modified independent with execution of home exercise program (upper extremity and functional activities) with support of family utilizing provided written and visual instructions from therapist. = 50% met; upgrading resistance/repetitions - Treatment 3 Descriptor Functional problem solving activities. Bimanual coordination. Attention to the affected UE. Replication of PVC pattern w/ min phys assist x 1. Seating swinging of small baseball bat. Striking of 3 1/ 2-inch ball. x 15 repetitions. N/A 03/06/23. Seated golfing. Putting. Bimanual coordination . 2 slopes; 1 small and 1 large slope. 2 Descriptor Tone Management. Positioning of the R hand on the TT w/ fingers in extended position, w/ slight wrist flex. Positioning of the R hand on arm rest w/ replication of PVC pipe tree. Exercises 7 Descriptor Elbow ext. TB #3 (modified place and hold x 3 sec w/ TB and muscle tapping to facilitate). 2 x 10. Elbow flex. Muscle tapping to facilitate. 2 x 10. [ End ] 6 Descriptor Sh ROM. Modified resisted (use of TT). TT Sh flex. 2 x 10 AROM. Resisted 3 x 10 TB #3. TT Sh ext. 2 x 10 AROM. Resisted 3 x 10. TB #4. TT Sh hor abd. 2 x 10 AROM. Resisted 3 x 10. TB #3. Sh abd. 2 x 10 AROM. Resisted 3 x 10. TB #3. 4 Descriptor Digit/Hand strengthening exercises. Large dowel w/ TB # 5 resistance. x 5 sec hold. 1 x 10. Forearm pronated. 90 degrees forearm supination. 1 x 10. 2 Descriptor Cane exercises. Seated rowing. 2 x 10. Elbow flex/ext. 2 x 10. Resisted sh ext. TB #3. 2 x 10 . - Assessment Assessment of Improvement No cueing needed to discourage L UE assist w/ completion of TT ROM and resisted exercises; will need to monitor and/or provided phys cueing to discourage other proximal compensatory strategies (trunk movement) as able. Min v.c. to support imitation of PVC structure and/or taking joints and PVC parts apart; therapist provides set-up at TT level to discourage 1- handed execution (with breakdown). Returned to cane exercises; completed x 3 bilateral UE exercises w/ use of cane. Do to time constraints did not have patient participate in seated golfing. Recommend working on increasing functional independence with positioning of R hand on arm rest and/or table. Overall, good session. 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 Sukh benefits from handling, visual cues and environmental modifications to support motor planning of the right upper extremity. Continued outpatient OT is recommended to address ROM, strength, functional abilities , attention/awareness, bimanual coordination, and functional problem solving, with goal of incorporating right upper extremity in day- to-day life with engagement in functional and meaningful activities. Home Exercise Program No changes to HEP. - Plan Therapy Recommendations Continue with Current Program, Advance per Rehabilitation Protocol
--- NOTE | 2023-03-13 14:36 | OT.OP.TRT ---
Visit Care Team Role Provider Type Delfino Epstein MD Attending Provider Physician Primary Care Provider Referring Provider Specialty: Family Practice Address: [address] [place] [address], [id number] Email: [email or web address] Occupational Therapy Treatment Note OT Outpatient Treatment Note - Adult Start: 05/18/21 12:52 Freq: Status: Active Protocol: Document 03/13/23 14:32 AMS (Rec: 03/13/23 14:36 AMS [id number]) OT Outpatient Adult Treatment Note Session Time Visit Start Time 12:20 Visit Stop Time 13:05 Total Visit Minutes 45 Visit Information Visit Number 18 - OT 2022 visits Plan of Care Dates 01/16/23 - 03/27/23 Insurance Information [facility]; no pre-auth req to annual plan max; max 80/combo Setting Treatment Setting Outpatient Care Visit Type Note Type Treatment Note General Information General Information Patient is a 67 year-old male referred to outpatient OT by PCP; patient was accompanied to initial eval by . 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 Patient has been seen in outpatient clinic at [facility] for OT, PT, and FAMILY PHYSICIAN. He was recently hospitalized 06/22/19 d/t 3 falls that occurred on the same day. He was d/c and then re-hospitalized in August 2019. He was identified to have low sodium. Post hospitalization patient had Home Health OT; Home Health HEP was designed as follows: shoulder flex; sh abd; sh hor abd; wrist ext; positioning of hand/wrist on towel; PROM of digits of L hand; passive elbow flexion/ext. HEP also includes writing of name and squeezing putty. Frequency is 1 x per day, 10 reps. PMH: significant for RA; blood clots; depression; diabetes mellitus I; falls; depression; heart attack; pacemaker; neuropathy; R elbow surgery. - Subjective Identification Type Name Identification Reconciled With Medical Record Observations Sukh was seen 1:1 for OT treatment session. Non verbal indicator of concern re: bicep area (strength/ability to flex the elbow). Anali and her , Elvis, have been primarily overseeing Sukh's execution of exercises in the home (for FAMILY PHYSICIAN, PT, and OT). Patient/Caregiver Compliance with Home Good Exercise Program Comment w/ family support - Objective Objective Measurements Please refer to below for progress towards meeting established OT goals. 05/16/20= avg 8.0 pounds of force w/ R rv servicer dynamometer II testing. Short Term Goals 1. 0-40 degrees active R sh extension. 01/16/23 = GOAL UPGRADED; 0-35 degrees R active sh ext GOALS MET -40 degrees passive R elbow ext. 11/07/22 0-30 degrees active R sh abd. *11/07/22 (modified blocking into randa-pattern) 0-20 degrees active R sh flexion. *MET 08/09/21; 0-45 degrees. 04/04/22 = 0-45 degrees . 01/16/23 = 0-45 degrees w/ typical randa pattern 0-20 degrees active R sh extension. *MET 08/09/21; 0-25 degrees. 06/13/22 = 0-35 degrees. 11/07/22 = 0-25 degrees . Able to separate x 5 pvc pipes and their joints, when given 7 opportunities, requiring no more than 1 model from therapist. *MET 01/10/22 Able to position right hand initially on cane vertical/ cane horizontally/golf club without physical assistance (x 3 attempts per session), requiring no more than 1-2 verbal cues from therapist, demonstrating improving functional problem solving, attention, and active incorporation of the right upper extremity/hand. *MET 08/25 Auto Painter Goals 1. Sukh will present with increased attention to the right upper extremity, as well as increased functional incorporation of the right upper extremity; this will be evidenced by active incorporation of the right upper extremity/hand with stabilization of objects at TT , 3 to 4 times per week based on family report requiring no more than 1-2 verbal cues per occasion. 01/16/23 = 50% met; min v.c. 2. Sukh will present with increased attention to the right upper extremity, as well as increased joint protection /tone management; this will be evidenced by Sukh's ability to position the distal right upper extremity/hand on arm rest with TT tasks and/or on TT surface, 2 to 3 times per session, requiring minimal verbal cues from therapist to support positioning. 01/16/23 = NEW GOAL; max phys assist/mod verbal/visual cueing 3. Sukh will be modified independent with execution of home exercise program (upper extremity and functional activities) with support of family utilizing provided written and visual instructions from therapist. = 50% met; upgrading resistance/repetitions - Treatment 3 Descriptor Functional problem solving activities. Bimanual coordination. Attention to the affected UE. Replication of PVC pattern w/ min phys assist x 1. Seating swinging of small baseball bat. Striking of 3 1/ 2-inch ball. x 15 repetitions. N/A 03/06/23. Seated golfing. Putting. Bimanual coordination . 2 slopes; 1 small and 1 large slope. 2 Descriptor Tone Management. Positioning of the R hand on the TT w/ fingers in extended position, w/ slight wrist flex. Positioning of the R hand on arm rest w/ replication of PVC pipe tree. Exercises 7 Descriptor Elbow ext. TB #3 (modified place and hold x 3 sec w/ TB and muscle tapping to facilitate). 2 x 10. Elbow flex. Muscle tapping to facilitate. 2 x 10. [ End ] 6 Descriptor Sh ROM. Modified resisted (use of TT). TT Sh flex. 2 x 10 AROM. Resisted 3 x 10 TB #3. TT Sh ext. 2 x 10 AROM. Resisted 3 x 10. TB #4. TT Sh hor abd. 2 x 10 AROM. Resisted 3 x 10. TB #3. Sh abd. 2 x 10 AROM. Resisted 3 x 10. TB #3. 5 Descriptor Seated UEB. Bilateral hands. x 3 minutes. 4 Descriptor Digit/Hand strengthening exercises. Large dowel w/ TB # 5 resistance. x 5 sec hold. 1 x 10. Forearm pronated. 90 degrees forearm supination. 1 x 10. 2 Descriptor Cane exercises. Seated rowing. 2 x 10. Elbow flex/ext. 2 x 10. Resisted sh ext. TB #3. 2 x 10 . - Assessment Assessment of Improvement No cueing needed to discourage L UE assist w/ completion of TT ROM and resisted exercises; will need to monitor and/or provided phys cueing to discourage other proximal compensatory strategies (trunk movement) as able. 1 v.c. to support replication of PVC structure; without set-up completed breakdown of task primarily w/ the left hand; however, did spontaneously incorporate the right hand when needed for separation of joints/PVC pipes. Use of small pedal bike on TT x 3 minutes; fatigue indicated by Sukh at 3 min; may look to increase tolerance to 4 to 5 min. Dependent w/ positioning of right hand on arm rest; tendency to position arm in lap despite provision of dycem . Recommend working on increasing functional independence with positioning of R hand on arm rest and/or table. Overall, good session. 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 Sukh benefits from handling, visual cues and environmental modifications to support motor planning of the right upper extremity. Continued outpatient OT is recommended to address ROM, strength, functional abilities , attention/awareness, bimanual coordination, and functional problem solving, with goal of incorporating right upper extremity in day- to-day life with engagement in functional and meaningful activities. Home Exercise Program No changes to HEP. - Plan Therapy Recommendations Continue with Current Program, Advance per Rehabilitation Protocol
--- NOTE | 2023-03-20 16:00 | OT.OP.TRT ---
Visit Care Team Role Provider Type Delfino Epstein MD Attending Provider Physician Primary Care Provider Referring Provider Specialty: Family Practice Address: [address] [place] [address], [id number] Email: [email or web address] Occupational Therapy Treatment Note OT Outpatient Treatment Note - Adult Start: 05/18/21 12:52 Freq: Status: Active Protocol: Document 03/20/23 16:00 AMS (Rec: 03/21/23 14:07 AMS [id number]) OT Outpatient Adult Treatment Note Session Time Visit Start Time 12:15 Visit Stop Time 13:00 Total Visit Minutes 45 Visit Information Visit Number 19 - OT 2022 visits Plan of Care Dates 01/16/23 - 03/27/23 Insurance Information [facility]; no pre-auth req to annual plan max; max 80/combo Setting Treatment Setting Outpatient Care Visit Type Note Type Treatment Note General Information General Information Patient is a 67 year-old male referred to outpatient OT by PCP; patient was accompanied to initial eval by . 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 Patient has been seen in outpatient clinic at [facility] for OT, PT, and TARIFF COUNSEL. He was recently hospitalized 06/22/19 d/t 3 falls that occurred on the same day. He was d/c and then re-hospitalized in August 2019. He was identified to have low sodium. Post hospitalization patient had Home Health OT; Home Health HEP was designed as follows: shoulder flex; sh abd; sh hor abd; wrist ext; positioning of hand/wrist on towel; PROM of digits of L hand; passive elbow flexion/ext. HEP also includes writing of name and squeezing putty. Frequency is 1 x per day, 10 reps. PMH: significant for RA; blood clots; depression; diabetes mellitus I; falls; depression; heart attack; pacemaker; neuropathy; R elbow surgery. - Subjective Identification Type Name Identification Reconciled With Medical Record Observations Sukh was seen 1:1 for OT treatment session. Non verbal indicator of concern re: bicep area (strength/ability to flex the elbow). Anali and her , Elvis, have been primarily overseeing Sukh's execution of exercises in the home (for TARIFF COUNSEL, PT, and OT). Patient/Caregiver Compliance with Home Good Exercise Program Comment w/ family support - Objective Objective Measurements Please refer to below for progress towards meeting established OT goals. 05/16/20= avg 8.0 pounds of force w/ R food production worker dynamometer II testing. Short Term Goals 1. 0-40 degrees active R sh extension. 01/16/23 = GOAL UPGRADED; 0-35 degrees R active sh ext GOALS MET -40 degrees passive R elbow ext. 11/07/22 0-30 degrees active R sh abd. *11/07/22 (modified blocking into randa-pattern) 0-20 degrees active R sh flexion. *MET 08/09/21; 0-45 degrees. 04/04/22 = 0-45 degrees . 01/16/23 = 0-45 degrees w/ typical randa pattern 0-20 degrees active R sh extension. *MET 08/09/21; 0-25 degrees. 06/13/22 = 0-35 degrees. 11/07/22 = 0-25 degrees . Able to separate x 5 pvc pipes and their joints, when given 7 opportunities, requiring no more than 1 model from therapist. *MET 01/10/22 Able to position right hand initially on cane vertical/ cane horizontally/golf club without physical assistance (x 3 attempts per session), requiring no more than 1-2 verbal cues from therapist, demonstrating improving functional problem solving, attention, and active incorporation of the right upper extremity/hand. *MET 08/25 Quality Coordinator Goals 1. Sukh will present with increased attention to the right upper extremity, as well as increased functional incorporation of the right upper extremity; this will be evidenced by active incorporation of the right upper extremity/hand with stabilization of objects at TT , 3 to 4 times per week based on family report requiring no more than 1-2 verbal cues per occasion. 01/16/23 = 50% met; min v.c. 2. Sukh will present with increased attention to the right upper extremity, as well as increased joint protection /tone management; this will be evidenced by Sukh's ability to position the distal right upper extremity/hand on arm rest with TT tasks and/or on TT surface, 2 to 3 times per session, requiring minimal verbal cues from therapist to support positioning. 01/16/23 = NEW GOAL; max phys assist/mod verbal/visual cueing 3. Sukh will be modified independent with execution of home exercise program (upper extremity and functional activities) with support of family utilizing provided written and visual instructions from therapist. = 50% met; upgrading resistance/repetitions - Treatment 3 Descriptor Functional problem solving activities. Bimanual coordination. Attention to the affected UE. Replication of PVC pattern w/ min phys assist x 1. Seated golfing. Putting. Bimanual coordination. 1 large slope x 7 swings. 2 Descriptor Tone Management. Positioning of the R hand on the TT w/ fingers in extended position, w/ slight wrist flex. Positioning of the R hand on arm rest w/ replication of PVC pipe tree. Exercises 7 Descriptor Elbow ext. TB #3 (modified place and hold x 3 sec w/ TB and muscle tapping to facilitate). 2 x 10. Elbow flex. Muscle tapping to facilitate. 2 x 10. [ End ] 6 Descriptor Sh ROM. Modified resisted (use of TT). TT Sh flex. 2 x 10 AROM. Resisted 3 x 10 TB #3. TT Sh ext. 2 x 10 AROM. Resisted 3 x 10. TB #4. TT Sh hor abd. 2 x 10 AROM. Resisted 3 x 10. TB #3. Sh abd. 2 x 10 AROM. Resisted 3 x 10. TB #3. 5 Descriptor Seated UEB. Bilateral hands. x 3 minutes. 4 Descriptor Digit/Hand strengthening exercises. Large dowel w/ TB # 5 resistance. x 5 sec hold. 1 x 10. Forearm pronated. 90 degrees forearm supination. 1 x 10. 2 Descriptor Cane exercises. Seated rowing. 2 x 10. 1# ankle weight. Elbow flex/ext. 2 x 10. 1# ankle weight. Resisted sh ext. TB #3. 2 x 10 . - Assessment Assessment of Improvement No cueing needed to discourage L UE assist w/ completion of TT ROM and resisted exercises; will need to monitor and/or provided phys cueing to discourage other proximal compensatory strategies (trunk movement) as able. Mod phys assist w/ positioning of right hand on arm rest; tendency to position arm in lap despite provision of dycem. Recommend working on increasing functional independence with positioning of R hand on arm rest and/or table. Recommend revisiting small pedal bike. Overall, good session. 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 Sukh benefits from handling, visual cues and environmental modifications to support motor planning of the right upper extremity. Continued outpatient OT is recommended to address ROM, strength, functional abilities , attention/awareness, bimanual coordination, and functional problem solving, with goal of incorporating right upper extremity in day- to-day life with engagement in functional and meaningful activities. Home Exercise Program No changes to HEP. - Plan Therapy Recommendations Continue with Current Program, Advance per Rehabilitation Protocol
--- NOTE | 2023-03-27 16:00 | OT.OPPOC ---
Physical, Occupational & Speech Therapy At [facility] Sukh Colvin [id number] Visit Care Team Role Provider Type Delfino Epstein MD Attending Provider Physician Primary Care Provider Referring Provider Address: [address] [place] [address], [id number] Occupational Therapy Plan of Care OT Outpatient Adult Evaluation Start: 05/18/21 12:52 Freq: Status: Active Protocol: Document 05/18/21 12:53 AMS (Rec: 05/18/21 13:18 AMS [id number]) General Information Session Time Visit Start Time 09:30 Visit Stop Time 10:15 Total Visit Minutes 45 Visit Information Plan of Care Dates 05/18/21-08/10/21 Insurance Information [facility]; pre- auth required >18 OT visits; max 80/combo PT Setting Treatment Setting Outpatient Care Referral Referring Physician Delfino Epstein MD Reason for Referral Generalized Weakness Identification Identification Confirmed Yes Identification Confirmed By Felicity Goals Treatment Treatment TT ROM. Bimanual activities. Short Term Goals Short Term Goals 1. 0-20 degrees active R sh flexion. 2. 0-20 degrees active R sh extension. Draw Machine Operator Goals Mcfp Goals 1. Sukh will present with increased attention to the right upper extremity, as well as increased functional incorporation of the right upper extremity; this will be evidenced by active incorporation of the right upper extremity/hand with stabilization of objecs at TT, 3 to 4 times per week based on family report requiring no more than 1-2 verbal cues per occasion. 2. Sukh will be modified independent with execution of home exercise program (upper extremity and functional activities) with support of family utilizing provided written and visual instructions from therapist. Assessment/Plan Assessment Treatment Assessment Patient is 65 year-old male referred to outpatient OT by PCP, Delfino Epstein MD, secondary to generalized weakness. PMH: Significant for Antiphospholipid antibody syndrome; Aphasia; CAD; Cardiac Arrhythmia; CVA involving L MCA territory ; Chronic atrial flutter; Chronic systolic CHF; CAD involving [place] coronary artery; DM; DVT; Essential HTN ; Hemiparesis affectiving dominant side 01/27/15; Hyperlipidemia; IA; Pacemaker; RA; Stenosis of left carotid artery; Systolic heart failure . Patient has been seen here at [facility] outpatient therapy services over the years; he is currently receiving outpatient PT. Patient was d/c in December of 2020. His last fall occurred approx 1-2 months ago on the deck. Patient has R hemishoulder/subluxation sling and R GivMohr Sling; he prefers R randa/subluxation sling; however, he did not come to session w/ sling on. Patient/Family Goals: Address attn R side/R UE; functional incorporation of R UE; strength; motor planning Evaluation Findings: Initial intake paperwork completed by Felicity. QuickDASH UE Outcome Measure Score = 62.5. Avg 7.0# of force w/ R green end worker dynamometer II strength testing. -40 degrees passive R elbow ext. 40 degrees active elbow flex. 0-5 degrees active R sh extension. 0-20 degrees active R sh flexion. 0-0 degrees active R sh abd. R sided neglect; learned non-use w/ increased reliance on L UE . Decreased activity tolerance . Decreased sitting posture. Sukh has positively responded to outpatient services in the past. Outpatient OT is recommended to address range of motion, positioning of the UE, strength of the UE, as well as attention and active incorporation of the R UE in day-to-day life. Plan Comment 12 weeks Treatment Frequency Once a Week Therapeutic Contents Active Range of Motion, Adaptive Equipment Education, Client Education,Cognitive Skills Development,Functional Activities,Home Exercise Program,Joint Protection, Manual Therapy,Education, Neurodevelopment Treatment, Neuromuscular Re-Education, Self-Care,Splinting, Therapeutic Activities, Therapeutic Exercises,Sensory Re-education Modalities As Needed,As Prescribed Additional Types of Modalities Heat Sensory Assessment Sensory Profile2 Functional Wrist/Hand Scan Hand Side OT Outpatient Treatment Note - Adult Start: 05/18/21 12:52 Freq: Status: Active Protocol: Document 03/27/23 16:00 [facility] (Rec: 03/28/23 09:29 [facility] [id number]) OT Outpatient Adult Treatment Note Session Time Visit Start Time 12:20 Visit Stop Time 13:00 Total Visit Minutes 40 Visit Information Visit Number 20 - OT 2022 visits Plan of Care Dates 03/27/23 - 06/05/23 Insurance Information [facility]; no pre-auth req to annual plan max; max 80/combo Setting Treatment Setting Outpatient Care Visit Type Note Type Progress Note General Information General Information Patient is a 67 year-old male referred to outpatient OT by PCP; patient was accompanied to initial eval by . 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 Patient has been seen in outpatient clinic at [facility] for OT, PT, and MISSION ASSESSMENT SPECIALIST. He was recently hospitalized 06/22/19 d/t 3 falls that occurred on the same day. He was d/c and then re-hospitalized in August 2019. He was identified to have low sodium. Post hospitalization patient had Home Health OT; Home Health HEP was designed as follows: shoulder flex; sh abd; sh hor abd; wrist ext; positioning of hand/wrist on towel; PROM of digits of L hand; passive elbow flexion/ext. HEP also includes writing of name and squeezing putty. Frequency is 1 x per day, 10 reps. PMH: significant for RA; blood clots; depression; diabetes mellitus I; falls; depression; heart attack; pacemaker; neuropathy; R elbow surgery. - Subjective Identification Type Name Identification Reconciled With Medical Record Observations Sukh was seen w/ , Felicity , present. Per Felicity, Sukh has been having difficulties with sequencing. For instance, he stood up prior to putting his pants on over his legs. He has also been demonstrating some decreased safety awareness including leaving the home and going on a walk without telling anyone. Per Felicity, current manual w/c is cumbersome and difficult for her to manage (including putting in and taking out of the car) and was obtained 10+ years ago. [employer] is assisting with bath set-up at this time in the home. = Felicity Briones and her , Elvis, have been primarily overseeing Sukh's execution of exercises in the home (for MISSION ASSESSMENT SPECIALIST, PT, and OT). Patient/Caregiver Compliance with Home Good Exercise Program Comment w/ family support - Objective Objective Measurements Please refer to below for progress towards meeting established OT goals. 05/16/20= avg 8.0 pounds of force w/ R green end worker dynamometer II testing. Short Term Goals 1. 0-40 degrees active R sh extension. 03/27/23 = 50% met; 0-35 degrees R active sh ext GOALS MET -40 degrees passive R elbow ext. 11/07/22 0-30 degrees active R sh abd. *11/07/22 (modified blocking into randa-pattern) 0-20 degrees active R sh flexion. *MET 08/09/21; 0-45 degrees. 04/04/22 = 0-45 degrees . 01/16/23 = 0-45 degrees w/ typical randa pattern 0-20 degrees active R sh extension. *MET 08/09/21; 0-25 degrees. 06/13/22 = 0-35 degrees. 11/07/22 = 0-25 degrees . Able to separate x 5 pvc pipes and their joints, when given 7 opportunities, requiring no more than 1 model from therapist. *MET 01/10/22 Able to position right hand initially on cane vertical/ cane horizontally/golf club without physical assistance (x 3 attempts per session), requiring no more than 1-2 verbal cues from therapist, demonstrating improving functional problem solving, attention, and active incorporation of the right upper extremity/hand. *MET 08/25 Mcfp Goals 1. Sukh will present with increased attention to the right upper extremity, as well as increased functional incorporation of the right upper extremity; this will be evidenced by active incorporation of the right upper extremity/hand with stabilization of objects at TT , 3 to 4 times per week based on family report requiring no more than 1-2 verbal cues per occasion. 03/27/23 = 50% met; min v.c. 2. Sukh will present with increased attention to the right upper extremity, as well as increased joint protection /tone management; this will be evidenced by Sukh's ability to position the distal right upper extremity/hand on arm rest with TT tasks and/or on TT surface, 2 to 3 times per session, requiring minimal verbal cues from therapist to support positioning. 03/27/23 = 25% met max phys assist/mod verbal/visual cueing 3. Sukh will be modified independent with execution of home exercise program (upper extremity and functional activities) with support of family utilizing provided written and visual instructions from therapist. = 75% met - Treatment 3 Descriptor Functional problem solving activities. Bimanual coordination. Attention to the affected UE. Replication of PVC pattern. 2 Descriptor Tone Management. Positioning of the R hand on the TT w/ fingers in extended position, w/ slight wrist flex. Positioning of the R hand on arm rest w/ replication of PVC pipe tree. Exercises 7 Descriptor Elbow ext. TB #3 (modified place and hold x 3 sec w/ TB and muscle tapping to facilitate). 2 x 10. Elbow flex. Muscle tapping to facilitate. 2 x 10. [ End ] 6 Descriptor Sh ROM. Modified resisted (use of TT). TT Sh flex. 2 x 10 AROM. Resisted 3 x 10 TB #3. TT Sh ext. 2 x 10 AROM. Resisted 3 x 10. TB #4. TT Sh hor abd. 2 x 10 AROM. Resisted 3 x 10. TB #3. Sh abd. 2 x 10 AROM. Resisted 3 x 10. TB #3. 4 Descriptor Digit/Hand strengthening exercises. Large dowel w/ TB # 5 resistance. x 5 sec hold. 1 x 10. Forearm pronated. 90 degrees forearm supination. 1 x 10. 2 Descriptor Cane exercises. Seated rowing. 2 x 10. 1# ankle weight. Elbow flex/ext. 2 x 10. 1# ankle weight. Resisted sh ext. TB #3. 2 x 10 . - Assessment Assessment of Improvement Velmayvonne accompanied Sukh to today's treatment session. She reports that Sukh has been having some ADL sequencing difficulties, as well as demonstrating some decreased safety awareness (including going on a walk without informing CG/family). He also had much more difficulty sequencing/motor planning his signature using the left hand. Felicity also reports that manual w/c is cumbersome and difficult for her to manage; the family obtained the w/c 10 + years ago at time of Sukh' s initial d/c from hospital post-stroke. is also assessing arthritis medication at this time and home aid is assisting the family with bath set-up given current use of suction-cup grab bars. Sukh has made some slight progress [id number] certification period relative to endurance/activity tolerance; therapist has been able to increase number of sets and repetitions with TT UE exercises, as well as introduce cane exercises without c/o fatigue. Sukh has been doing quite well w/ sequencing relative to PVC pipe tree replication and participating in familiar/ preparing self for familiar exercises with OT. Based on Diele's report, it is recommended sequencing be further assessed likely using a novel activity; recommend also possibly observing signature. Sukh has not c/o L hand pain; however, hyperextension observed of IPJ of L thumb and joint deformities of multiple digits of the left hand are likely d /t arthritis w/ increased amount of weight being shifted into UE/hand w/ cane use for mobility. Sukh benefits from handling, visual cues and environmental modifications to support motor planning of the right upper extremity. Continued outpatient OT is recommended to address ROM, strength, functional abilities , attention/awareness, bimanual coordination, functional sequencing/motor planning, and functional problem solving, with goal of incorporating right upper extremity in day-to-day life with engagement in functional and meaningful activities. Home Exercise Program 03/28/23 = dycem provided for positioning of the hand out of flexed position on arm rest. Rec following-up w/ home aid re: w/c. - Plan Therapy Recommendations Continue with Current Program, Advance per Rehabilitation Protocol Comment 10 weeks Frequency of Treatment Once a Week Therapeutic Contents Active Range of Motion, Adaptive Equipment Education, Client Education,Cognitive Skills Development,Functional Activities,Home Exercise Program,Joint Protection, Manual Therapy,Education, Neurodevelopment Treatment, Neuromuscular Re-Education, Self-Care,Stretching/ Flexibility Activities, Therapeutic Activities, Therapeutic Exercises, Modalities,Sensory Re- education Additional Areas of Treatment Heat/Ice/Paraffin Electronically Signed by: Bobbi Staples, OT 03/28/23 9754 If you are in agreement with this Plan of Care, please return a signed and dated copy. I have reviewed this Plan of Care and certify that the skilled therapy services above are required to meet the patient?s needs. Physician Signature Date Printed Name and Credentials Clinical Instructor Signature Printed Name and Credentials
--- NOTE | 2023-04-03 13:56 | OT.OP.TRT ---
Visit Care Team Role Provider Type eDlfino Epstein MD Attending Provider Physician Primary Care Provider Referring Provider Specialty: Family Practice Address: [address] [place] [address], [id number] Email: [email or web address] Occupational Therapy Treatment Note OT Outpatient Treatment Note - Adult Start: 05/18/21 12:52 Freq: Status: Active Protocol: Document 04/03/23 13:41 AMS (Rec: 04/03/23 13:56 AMS [id number]) OT Outpatient Adult Treatment Note Session Time Visit Start Time 12:15 Visit Stop Time 12:55 Total Visit Minutes 40 Visit Information Visit Number 21 - OT 2022 visits Plan of Care Dates 03/27/23 - 06/05/23 Insurance Information [facility]; no pre-auth req to annual plan max; max 80/combo Setting Treatment Setting Outpatient Care Visit Type Note Type Treatment Note General Information General Information Patient is a 67 year-old male referred to outpatient OT by PCP; patient was accompanied to initial eval by . 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 He was recently hospitalized 06/22/19 d/t 3 falls that occurred on the same day. He was d/c and then re-hospitalized in August 2019. He was identified to have low sodium. Post hospitalization patient had Home Health OT; Home Health HEP was designed as follows: shoulder flex; sh abd; sh hor abd; wrist ext; positioning of hand/wrist on towel; PROM of digits of L hand; passive elbow flexion/ext. HEP also includes writing of name and squeezing putty. Frequency is 1 x per day, 10 reps. PMH: significant for RA; blood clots; depression; diabetes mellitus I; falls; depression; heart attack; pacemaker; neuropathy; R elbow surgery. - Subjective Identification Type Name Identification Reconciled With Medical Record Observations Sukh was seen 1:1 for OT treatment session. 03/27/23 = Per Diele, Sukh has been having difficulties with sequencing. For instance, he stood up prior to putting his pants on over his legs. He has also been demonstrating some decreased safety awareness including leaving the home and going on a walk without telling anyone. Per Felicity, current manual w/c is cumbersome and difficult for her to manage (including putting in and taking out of the car) and was obtained 10+ years ago. Guest Room Inspector is assisting with bath set-up at this time in the home. = Felicity Briones and her , Elvis, have been primarily overseeing Sukh's execution of exercises in the home (for STUDIO TECHNICIAN, PT, and OT). Patient/Caregiver Compliance with Home Good Exercise Program Comment w/ family support - Objective Objective Measurements Please refer to below for progress towards meeting established OT goals. 05/16/20= avg 8.0 pounds of force w/ R shell press operator dynamometer II testing. Short Term Goals 1. 0-40 degrees active R sh extension. 03/27/23 = 50% met; 0-35 degrees R active sh ext GOALS MET -40 degrees passive R elbow ext. 11/07/22 0-30 degrees active R sh abd. *11/07/22 (modified blocking into randa-pattern) 0-20 degrees active R sh flexion. *MET 08/09/21; 0-45 degrees. 04/04/22 = 0-45 degrees . 01/16/23 = 0-45 degrees w/ typical randa pattern 0-20 degrees active R sh extension. *MET 08/09/21; 0-25 degrees. 06/13/22 = 0-35 degrees. 11/07/22 = 0-25 degrees . Able to separate x 5 pvc pipes and their joints, when given 7 opportunities, requiring no more than 1 model from therapist. *MET 01/10/22 Able to position right hand initially on cane vertical/ cane horizontally/golf club without physical assistance (x 3 attempts per session), requiring no more than 1-2 verbal cues from therapist, demonstrating improving functional problem solving, attention, and active incorporation of the right upper extremity/hand. *MET 08/25 [facility] Goals 1. Sukh will present with increased attention to the right upper extremity, as well as increased functional incorporation of the right upper extremity; this will be evidenced by active incorporation of the right upper extremity/hand with stabilization of objects at TT , 3 to 4 times per week based on family report requiring no more than 1-2 verbal cues per occasion. 03/27/23 = 50% met; min v.c. 2. Sukh will present with increased attention to the right upper extremity, as well as increased joint protection /tone management; this will be evidenced by Sukh's ability to position the distal right upper extremity/hand on arm rest with TT tasks and/or on TT surface, 2 to 3 times per session, requiring minimal verbal cues from therapist to support positioning. 03/27/23 = 25% met max phys assist/mod verbal/visual cueing 3. Sukh will be modified independent with execution of home exercise program (upper extremity and functional activities) with support of family utilizing provided written and visual instructions from therapist. = 75% met - Treatment 3 Descriptor Functional problem solving activities. Bimanual coordination. Attention to the affected UE. Replication of PVC pattern. 2 Descriptor Tone Management. Positioning of the R hand on the TT w/ fingers in extended position, w/ slight wrist flex. Positioning of the R hand on arm rest w/ replication of PVC pipe tree. Exercises 7 Descriptor Elbow ext. TB #3 (modified place and hold x 3 sec w/ TB and muscle tapping to facilitate). 2 x 10. Elbow flex. Muscle tapping to facilitate. 2 x 10. [ End ] 6 Descriptor Sh ROM. Modified resisted (use of TT). TT Sh flex. 2 x 10 AROM. Resisted 3 x 10 TB #3. TT Sh ext. 2 x 10 AROM. Resisted 3 x 10. TB #4. TT Sh hor abd. 2 x 10 AROM. Resisted 3 x 10. TB #3. Sh abd. 2 x 10 AROM. Resisted 3 x 10. TB #3. - Assessment Assessment of Improvement Sukh was seen 1:1 for OT treatment. He was able to copy his first name utilizing writing utensil positioned in the L hand; copying took increased time and there was some 'shakiness' observed in curves and lines, however, he sequenced letters appropriately and name had good letter spacing and sizing and was legible. Sukh was also able to connect numbers ( 1-10) in order without errors and without support from clinician. Recommend pursuing additional sequencing activities based on feedback from at previous session. Discomfort noted w/ positioning of hand on arm rest combined w/ trunk flexion - discomfort indicated at wrist level. Overall, good session. Based on Diele's report, it is recommended sequencing be further assessed likely using a novel activity; recommend also possibly observing signature. Sukh has not c/o L hand pain; however, hyperextension observed of IPJ of L thumb and joint deformities of multiple digits of the left hand are likely d /t arthritis w/ increased amount of weight being shifted into UE/hand w/ cane use for mobility. Sukh benefits from handling, visual cues and environmental modifications to support motor planning of the right upper extremity. Continued outpatient OT is recommended to address ROM, strength, functional abilities , attention/awareness, bimanual coordination, functional sequencing/motor planning, and functional problem solving, with goal of incorporating right upper extremity in day-to-day life with engagement in functional and meaningful activities. Home Exercise Program 03/28/23 = dycem provided for positioning of the hand out of flexed position on arm rest. Rec following-up w/ line tester re: w/c. -
--- NOTE | 2023-04-11 14:02 | OT.OP.TRT ---
Visit Care Team Role Provider Type Delfino Epstein MD Attending Provider Physician Primary Care Provider Referring Provider Specialty: Family Practice Address: [address] [place] [address], [id number] Email: [email or web address] Occupational Therapy Treatment Note OT Outpatient Treatment Note - Adult Start: 05/18/21 12:52 Freq: Status: Active Protocol: Document 04/11/23 13:56 AMS (Rec: 04/11/23 14:01 AMS [id number]) OT Outpatient Adult Treatment Note Session Time Visit Start Time 12:20 Visit Stop Time 13:05 Total Visit Minutes 45 Visit Information Visit Number 22 - OT 2022 visits Plan of Care Dates 03/27/23 - 06/05/23 Insurance Information [facility]; no pre-auth req to annual plan max; max 80/combo Setting Treatment Setting Outpatient Care Visit Type Note Type Treatment Note General Information General Information Patient is a 67 year-old male referred to outpatient OT by PCP; patient was accompanied to initial eval by . 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 He was recently hospitalized 06/22/19 d/t 3 falls that occurred on the same day. He was d/c and then re-hospitalized in August 2019. He was identified to have low sodium. Post hospitalization patient had Home Health OT; Home Health HEP was designed as follows: shoulder flex; sh abd; sh hor abd; wrist ext; positioning of hand/wrist on towel; PROM of digits of L hand; passive elbow flexion/ext. HEP also includes writing of name and squeezing putty. Frequency is 1 x per day, 10 reps. PMH: significant for RA; blood clots; depression; diabetes mellitus I; falls; depression; heart attack; pacemaker; neuropathy; R elbow surgery. - Subjective Identification Type Name Identification Reconciled With Medical Record Observations Sukh was seen 1:1 for OT treatment session. 03/27/23 = Per Diele, Sukh has been having difficulties with sequencing. For instance, he stood up prior to putting his pants on over his legs. He has also been demonstrating some decreased safety awareness including leaving the home and going on a walk without telling anyone. Per Felicity, current manual w/c is cumbersome and difficult for her to manage (including putting in and taking out of the car) and was obtained 10+ years ago. Machine Operator Cane Cutter is assisting with bath set-up at this time in the home. = Felicity Briones and her , Elvis, have been primarily overseeing Sukh's execution of exercises in the home (for CIGAR HEAD STRINGER, PT, and OT). Patient/Caregiver Compliance with Home Good Exercise Program Comment w/ family support - Objective Objective Measurements Please refer to below for progress towards meeting established OT goals. 04/03/23 = Able to copy his first name utilizing writing utensil positioned in the L hand; copying took increased time and there was some ' shakiness' observed in curves and lines, however, he sequenced letters appropriately and name had good letter spacing and sizing and was legible. Sukh was also able to connect numbers ( 1-10) in order without errors and without support from clinician. 05/16/20= avg 8.0 pounds of force w/ R monument letterer dynamometer II testing. Short Term Goals 1. 0-40 degrees active R sh extension. 03/27/23 = 50% met; 0-35 degrees R active sh ext GOALS MET -40 degrees passive R elbow ext. 11/07/22 0-30 degrees active R sh abd. *11/07/22 (modified blocking into randa-pattern) 0-20 degrees active R sh flexion. *MET 08/09/21; 0-45 degrees. 04/04/22 = 0-45 degrees . 01/16/23 = 0-45 degrees w/ typical randa pattern 0-20 degrees active R sh extension. *MET 08/09/21; 0-25 degrees. 06/13/22 = 0-35 degrees. 11/07/22 = 0-25 degrees . Able to separate x 5 pvc pipes and their joints, when given 7 opportunities, requiring no more than 1 model from therapist. *MET 01/10/22 Able to position right hand initially on cane vertical/ cane horizontally/golf club without physical assistance (x 3 attempts per session), requiring no more than 1-2 verbal cues from therapist, demonstrating improving functional problem solving, attention, and active incorporation of the right upper extremity/hand. *MET 08/25 Wood Milling Machine Operator Goals 1. Sukh will present with increased attention to the right upper extremity, as well as increased functional incorporation of the right upper extremity; this will be evidenced by active incorporation of the right upper extremity/hand with stabilization of objects at TT , 3 to 4 times per week based on family report requiring no more than 1-2 verbal cues per occasion. 03/27/23 = 50% met; min v.c. 2. Sukh will present with increased attention to the right upper extremity, as well as increased joint protection /tone management; this will be evidenced by Sukh's ability to position the distal right upper extremity/hand on arm rest with TT tasks and/or on TT surface, 2 to 3 times per session, requiring minimal verbal cues from therapist to support positioning. 03/27/23 = 25% met max phys assist/mod verbal/visual cueing 3. Sukh will be modified independent with execution of home exercise program (upper extremity and functional activities) with support of family utilizing provided written and visual instructions from therapist. = 75% met - Treatment 3 Descriptor Functional problem solving activities. Bimanual coordination. Attention to the affected UE. Replication of PVC pattern x 1 . Replication of 3-D color cube pattern x 1. 2 Descriptor Tone Management. Positioning of the R hand on the TT w/ fingers in extended position, w/ slight wrist flex. Positioning of the R hand on arm rest w/ replication of PVC pipe tree. Exercises 7 Descriptor Elbow ext. TB #3 (modified place and hold x 3 sec w/ TB and muscle tapping to facilitate). 2 x 10. Elbow flex. Muscle tapping to facilitate. 2 x 10. [ End ] 6 Descriptor Sh ROM. Modified resisted (use of TT). TT Sh flex. 2 x 10 AROM. Resisted 3 x 10 TB #3. TT Sh ext. 2 x 10 AROM. Resisted 3 x 10. TB #4. TT Sh hor abd. 2 x 10 AROM. Resisted 3 x 10. TB #3. Sh abd. 2 x 10 AROM. Resisted 3 x 10. TB #3. - Assessment Assessment of Improvement Sukh was seen 1:1 for OT treatment. Required min phys assist w/ replication of 3-D color cube pattern for assist w/ functional problem solving/ orientation of cubes; however, did quite well with this task . Recommend revisiting this activity. Notified clinician of concern re: lighting within bathroom area (given that light was turning on via sensor). Recommend pursuing additional sequencing activities based on feedback from at previous session. Overall, good session. Based on Felicity's report, it is recommended sequencing be further assessed likely using a novel activity; recommend also possibly observing signature. Sukh has not c/o L hand pain; however, hyperextension observed of IPJ of L thumb and joint deformities of multiple digits of the left hand are likely d /t arthritis w/ increased amount of weight being shifted into UE/hand w/ cane use for mobility. Sukh benefits from handling, visual cues and environmental modifications to support motor planning of the right upper extremity. Continued outpatient OT is recommended to address ROM, strength, functional abilities , attention/awareness, bimanual coordination, functional sequencing/motor planning, and functional problem solving, with goal of incorporating right upper extremity in day-to-day life with engagement in functional and meaningful activities. Home Exercise Program 03/28/23 = dycem provided for positioning of the hand out of flexed position on arm rest. Rec following-up w/ rn wellness re: w/c. - Plan Therapy Recommendations Continue with Current Program, Advance per Rehabilitation Protocol
--- NOTE | 2023-04-19 14:52 | OT.OP.TRT ---
Visit Care Team Role Provider Type Delfino Epstein MD Attending Provider Physician Primary Care Provider Referring Provider Specialty: Family Practice Address: [address] [place] [address], [id number] Email: [email or web address] Occupational Therapy Treatment Note OT Outpatient Treatment Note - Adult Start: 05/18/21 12:52 Freq: Status: Active Protocol: Document 04/19/23 14:47 AMS (Rec: 04/19/23 14:52 AMS [id number]) OT Outpatient Adult Treatment Note Session Time Visit Start Time 12:15 Visit Stop Time 13:00 Total Visit Minutes 45 Visit Information Visit Number 23 - OT 2022 visits Plan of Care Dates 03/27/23 - 06/05/23 Insurance Information [facility]; no pre-auth req to annual plan max; max 80/combo Setting Treatment Setting Outpatient Care Visit Type Note Type Treatment Note General Information General Information Patient is a 67 year-old male referred to outpatient OT by PCP; patient was accompanied to initial eval by . 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 He was recently hospitalized 06/22/19 d/t 3 falls that occurred on the same day. He was d/c and then re-hospitalized in August 2019. He was identified to have low sodium. Post hospitalization patient had Home Health OT; Home Health HEP was designed as follows: shoulder flex; sh abd; sh hor abd; wrist ext; positioning of hand/wrist on towel; PROM of digits of L hand; passive elbow flexion/ext. HEP also includes writing of name and squeezing putty. Frequency is 1 x per day, 10 reps. PMH: significant for RA; blood clots; depression; diabetes mellitus I; falls; depression; heart attack; pacemaker; neuropathy; R elbow surgery. - Subjective Identification Type Name Identification Reconciled With Medical Record Observations Sukh was seen 1:1 for OT treatment session. 03/27/23 = Per Diele, Sukh has been having difficulties with sequencing. For instance, he stood up prior to putting his pants on over his legs. He has also been demonstrating some decreased safety awareness including leaving the home and going on a walk without telling anyone. Per Felicity, current manual w/c is cumbersome and difficult for her to manage (including putting in and taking out of the car) and was obtained 10+ years ago. Forms Examiner is assisting with bath set-up at this time in the home. = Felicity Briones and her , Elvis, have been primarily overseeing Sukh's execution of exercises in the home (for STUDENT ACTIVITIES DIRECTOR, PT, and OT). Patient/Caregiver Compliance with Home Good Exercise Program Comment w/ family support - Objective Objective Measurements Please refer to below for progress towards meeting established OT goals. 04/03/23 = Able to copy his first name utilizing writing utensil positioned in the L hand; copying took increased time and there was some ' shakiness' observed in curves and lines, however, he sequenced letters appropriately and name had good letter spacing and sizing and was legible. Sukh was also able to connect numbers ( 1-10) in order without errors and without support from clinician. 05/16/20= avg 8.0 pounds of force w/ R produce clerk dynamometer II testing. Short Term Goals 1. 0-40 degrees active R sh extension. 03/27/23 = 50% met; 0-35 degrees R active sh ext GOALS MET -40 degrees passive R elbow ext. 11/07/22 0-30 degrees active R sh abd. *11/07/22 (modified blocking into randa-pattern) 0-20 degrees active R sh flexion. *MET 08/09/21; 0-45 degrees. 04/04/22 = 0-45 degrees . 01/16/23 = 0-45 degrees w/ typical randa pattern 0-20 degrees active R sh extension. *MET 08/09/21; 0-25 degrees. 06/13/22 = 0-35 degrees. 11/07/22 = 0-25 degrees . Able to separate x 5 pvc pipes and their joints, when given 7 opportunities, requiring no more than 1 model from therapist. *MET 01/10/22 Able to position right hand initially on cane vertical/ cane horizontally/golf club without physical assistance (x 3 attempts per session), requiring no more than 1-2 verbal cues from therapist, demonstrating improving functional problem solving, attention, and active incorporation of the right upper extremity/hand. *MET 08/25 Hospice Community Liaison Goals 1. Sukh will present with increased attention to the right upper extremity, as well as increased functional incorporation of the right upper extremity; this will be evidenced by active incorporation of the right upper extremity/hand with stabilization of objects at TT , 3 to 4 times per week based on family report requiring no more than 1-2 verbal cues per occasion. 03/27/23 = 50% met; min v.c. 2. Sukh will present with increased attention to the right upper extremity, as well as increased joint protection /tone management; this will be evidenced by Sukh's ability to position the distal right upper extremity/hand on arm rest with TT tasks and/or on TT surface, 2 to 3 times per session, requiring minimal verbal cues from therapist to support positioning. 03/27/23 = 25% met max phys assist/mod verbal/visual cueing 3. Sukh will be modified independent with execution of home exercise program (upper extremity and functional activities) with support of family utilizing provided written and visual instructions from therapist. = 75% met - Treatment 3 Descriptor Functional problem solving activities. Bimanual coordination. Attention to the affected UE. Replication of PVC pattern x 1 . Replication of 3-D color cube pattern x 1; min phys assist. Visual perceptual solitaire game x 3 attempts ( min phys assist to set-up patterns/puzzlers; CGA to min phys assist to complete each trial w/ mod verbal/visual cueing). 2 Descriptor Tone Management. Positioning of the R hand on the TT w/ fingers in extended position, w/ slight wrist flex. Positioning of the R hand on arm rest w/ replication of PVC pipe tree. Exercises 7 Descriptor Elbow ext. TB #3 (modified place and hold x 3 sec w/ TB and muscle tapping to facilitate). 2 x 10. Elbow flex. Muscle tapping to facilitate. 2 x 10. [ End ] 6 Descriptor Sh ROM. Modified resisted (use of TT). TT Sh flex. 2 x 10 AROM. Resisted 3 x 10 TB #3. TT Sh ext. 2 x 10 AROM. Resisted 3 x 10. TB #4. TT Sh hor abd. 2 x 10 AROM. Resisted 3 x 10. TB #3. Sh abd. 2 x 10 AROM. Resisted 3 x 10. TB #3. - Assessment Assessment of Improvement Sukh was seen 1:1 for OT treatment. Required min phys assist w/ replication of 3-D color cube pattern; trialed unfamiliar visual perceptual solitaire game; required min phys assist for set-up and replication of patterns and CGA to min physical assist for solving of puzzles. Recommend revisiting these activities. Recommend pursuing additional sequencing activities based on feedback from at previous session. Overall, good session. Based on Felicity's report, it is recommended sequencing be further assessed likely using a novel activity; recommend also possibly observing signature. Sukh has not c/o L hand pain; however, hyperextension observed of IPJ of L thumb and joint deformities of multiple digits of the left hand are likely d /t arthritis w/ increased amount of weight being shifted into UE/hand w/ cane use for mobility. Sukh benefits from handling, visual cues and environmental modifications to support motor planning of the right upper extremity. Continued outpatient OT is recommended to address ROM, strength, functional abilities , attention/awareness, bimanual coordination, functional sequencing/motor planning, and functional problem solving, with goal of incorporating right upper extremity in day-to-day life with engagement in functional and meaningful activities. Home Exercise Program 03/28/23 = dycem provided for positioning of the hand out of flexed position on arm rest. Rec following-up w/ heel turner re: w/c. - Plan Therapy Recommendations Continue with Current Program, Advance per Rehabilitation Protocol
--- NOTE | 2023-04-24 14:36 | OT.OP.TRT ---
Visit Care Team Role Provider Type Delfino Epstein MD Attending Provider Physician Primary Care Provider Referring Provider Specialty: Family Practice Address: [address] [place] [address], [id number] Email: [email or web address] Occupational Therapy Treatment Note OT Outpatient Treatment Note - Adult Start: 05/18/21 12:52 Freq: Status: Active Protocol: Document 04/24/23 14:23 AMS (Rec: 04/24/23 14:36 AMS [id number]) OT Outpatient Adult Treatment Note Session Time Visit Start Time 12:15 Visit Stop Time 13:00 Total Visit Minutes 45 Visit Information Visit Number 24 - OT 2022 visits Plan of Care Dates 03/27/23 - 06/05/23 Insurance Information [facility]; no pre-auth req to annual plan max; max 80/combo Setting Treatment Setting Outpatient Care Visit Type Note Type Treatment Note General Information General Information Patient is a 67 year-old male referred to outpatient OT by PCP; patient was accompanied to initial eval by . 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 Patient has been seen in outpatient clinic at [facility] for OT, PT, and QUANTITATIVE RESEARCH ANALYST. He was recently hospitalized 06/22/19 d/t 3 falls that occurred on the same day. He was d/c and then re-hospitalized in August 2019. He was identified to have low sodium. Post hospitalization patient had Home Health OT; Home Health HEP was designed as follows: shoulder flex; sh abd; sh hor abd; wrist ext; positioning of hand/wrist on towel; PROM of digits of L hand; passive elbow flexion/ext. HEP also includes writing of name and squeezing putty. Frequency is 1 x per day, 10 reps. PMH: significant for RA; blood clots; depression; diabetes mellitus I; falls; depression; heart attack; pacemaker; neuropathy; R elbow surgery. - Subjective Identification Type Name Identification Reconciled With Medical Record Observations Sukh was seen 1:1 for OT treatment session. 03/27/23 = Per Diele, Sukh has been having difficulties with sequencing. For instance, he stood up prior to putting his pants on over his legs. He has also been demonstrating some decreased safety awareness including leaving the home and going on a walk without telling anyone. Per Felicity, current manual w/c is cumbersome and difficult for her to manage (including putting in and taking out of the car) and was obtained 10+ years ago. Medication Reconciliation Technician is assisting with bath set-up at this time in the home. = Felicity Briones and her , Elvis, have been primarily overseeing Sukh's execution of exercises in the home (for QUANTITATIVE RESEARCH ANALYST, PT, and OT). Patient/Caregiver Compliance with Home Good Exercise Program Comment w/ family support - Objective Objective Measurements Please refer to below for progress towards meeting established OT goals. 04/03/23 = Able to copy his first name utilizing writing utensil positioned in the L hand; copying took increased time and there was some ' shakiness' observed in curves and lines, however, he sequenced letters appropriately and name had good letter spacing and sizing and was legible. Sukh was also able to connect numbers ( 1-10) in order without errors and without support from clinician. 05/16/20= avg 8.0 pounds of force w/ R cleat blanker dynamometer II testing. Short Term Goals 1. 0-40 degrees active R sh extension. 03/27/23 = 50% met; 0-35 degrees R active sh ext GOALS MET -40 degrees passive R elbow ext. 11/07/22 0-30 degrees active R sh abd. *11/07/22 (modified blocking into randa-pattern) 0-20 degrees active R sh flexion. *MET 08/09/21; 0-45 degrees. 04/04/22 = 0-45 degrees . 01/16/23 = 0-45 degrees w/ typical randa pattern 0-20 degrees active R sh extension. *MET 08/09/21; 0-25 degrees. 06/13/22 = 0-35 degrees. 11/07/22 = 0-25 degrees . Able to separate x 5 pvc pipes and their joints, when given 7 opportunities, requiring no more than 1 model from therapist. *MET 01/10/22 Able to position right hand initially on cane vertical/ cane horizontally/golf club without physical assistance (x 3 attempts per session), requiring no more than 1-2 verbal cues from therapist, demonstrating improving functional problem solving, attention, and active incorporation of the right upper extremity/hand. *MET 08/25 Oceanography Professor Goals 1. Sukh will present with increased attention to the right upper extremity, as well as increased functional incorporation of the right upper extremity; this will be evidenced by active incorporation of the right upper extremity/hand with stabilization of objects at TT , 3 to 4 times per week based on family report requiring no more than 1-2 verbal cues per occasion. 03/27/23 = 50% met; min v.c. 2. Sukh will present with increased attention to the right upper extremity, as well as increased joint protection /tone management; this will be evidenced by Sukh's ability to position the distal right upper extremity/hand on arm rest with TT tasks and/or on TT surface, 2 to 3 times per session, requiring minimal verbal cues from therapist to support positioning. 03/27/23 = 25% met max phys assist/mod verbal/visual cueing 3. Sukh will be modified independent with execution of home exercise program (upper extremity and functional activities) with support of family utilizing provided written and visual instructions from therapist. = 75% met - Treatment 3 Descriptor Functional problem solving activities. Bimanual coordination. Attention to the affected UE. Replication of PVC pattern x 1 . Visual perceptual solitaire game x 1 attempt (min phys assist to set-up patterns/ puzzlers; min phys assist to complete each trial w/ mod verbal/visual cueing). 2 Descriptor Tone Management. Positioning of the R hand on the TT w/ fingers in extended position, w/ slight wrist flex. Positioning of the R hand on arm rest w/ replication of PVC pipe tree. Exercises 7 Descriptor Elbow ext. TB #3 (modified place and hold x 3 sec w/ TB and muscle tapping to facilitate). 2 x 10. Elbow flex. Muscle tapping to facilitate. 2 x 10. [ End ] 6 Descriptor Sh ROM. Modified resisted (use of TT). TT Sh flex. 2 x 10 AROM. Resisted 3 x 10 TB #3. TT Sh ext. 2 x 10 AROM. Resisted 3 x 10. TB #4. TT Sh hor abd. 2 x 10 AROM. Resisted 3 x 10. TB #3. Sh abd. 2 x 10 AROM. Resisted 3 x 10. TB #3. - Assessment Assessment of Improvement Sukh was seen 1:1 for OT treatment. Required min phys assist for set-up and replication of patterns and min physical assist for solving of visual perceptual 2 -D puzzle pattern easiest level; may need to explore an alternative activity given seeking of additional information for completion of pattern; has preferred 'full' plans. demonstrated good awareness to environment; inquired about typical area of treatment set-up given that the table was occupied while transitioning. Recommend pursuing additional sequencing activities. Overall, good session. Based on Felicity's report, it is recommended sequencing be further assessed likely using a novel activity; recommend also possibly observing signature. Sukh has not c/o L hand pain; however, hyperextension observed of IPJ of L thumb and joint deformities of multiple digits of the left hand are likely d /t arthritis w/ increased amount of weight being shifted into UE/hand w/ cane use for mobility. Sukh benefits from handling, visual cues and environmental modifications to support motor planning of the right upper extremity. Continued outpatient OT is recommended to address ROM, strength, functional abilities , attention/awareness, bimanual coordination, functional sequencing/motor planning, and functional problem solving, with goal of incorporating right upper extremity in day-to-day life with engagement in functional and meaningful activities. Home Exercise Program 03/28/23 = dycem provided for positioning of the hand out of flexed position on arm rest. Rec following-up w/ welder production line gas re: w/c. - Plan Therapy Recommendations Continue with Current Program, Advance per Rehabilitation Protocol
--- NOTE | 2023-05-01 14:53 | OT.OP.TRT ---
Visit Care Team Role Provider Type Delfino Epstein MD Attending Provider Physician Primary Care Provider Referring Provider Specialty: Family Practice Address: [address] [place] [address], [id number] Email: [email or web address] Occupational Therapy Treatment Note OT Outpatient Treatment Note - Adult Start: 05/18/21 12:52 Freq: Status: Active Protocol: Document 05/01/23 14:48 AMS (Rec: 05/01/23 14:53 AMS [id number]) OT Outpatient Adult Treatment Note Session Time Visit Start Time 12:15 Visit Stop Time 13:00 Total Visit Minutes 45 Visit Information Visit Number 25 - OT 2022 visits Plan of Care Dates 03/27/23 - 06/05/23 Insurance Information [facility]; no pre-auth req to annual plan max; max 80/combo Setting Treatment Setting Outpatient Care Visit Type Note Type Treatment Note General Information General Information Patient is a 67 year-old male referred to outpatient OT by PCP; patient was accompanied to initial eval by . 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 Patient has been seen in outpatient clinic at [facility] for OT, PT, and CUSHION SEWER. He was recently hospitalized 06/22/19 d/t 3 falls that occurred on the same day. He was d/c and then re-hospitalized in August 2019. He was identified to have low sodium. Post hospitalization patient had Home Health OT; Home Health HEP was designed as follows: shoulder flex; sh abd; sh hor abd; wrist ext; positioning of hand/wrist on towel; PROM of digits of L hand; passive elbow flexion/ext. HEP also includes writing of name and squeezing putty. Frequency is 1 x per day, 10 reps. PMH: significant for RA; blood clots; depression; diabetes mellitus I; falls; depression; heart attack; pacemaker; neuropathy; R elbow surgery. - Subjective Identification Type Name Identification Reconciled With Medical Record Observations Sukh was seen 1:1 for OT treatment session. 03/27/23 = Per Diele, Sukh has been having difficulties with sequencing. For instance, he stood up prior to putting his pants on over his legs. He has also been demonstrating some decreased safety awareness including leaving the home and going on a walk without telling anyone. Per Felicity, current manual w/c is cumbersome and difficult for her to manage (including putting in and taking out of the car) and was obtained 10+ years ago. International Logistics Coordinator is assisting with bath set-up at this time in the home. = Felicity Briones and her , Elvis, have been primarily overseeing Sukh's execution of exercises in the home (for CUSHION SEWER, PT, and OT). Patient/Caregiver Compliance with Home Good Exercise Program Comment w/ family support - Objective Objective Measurements Please refer to below for progress towards meeting established OT goals. 04/03/23 = Able to copy his first name utilizing writing utensil positioned in the L hand; copying took increased time and there was some ' shakiness' observed in curves and lines, however, he sequenced letters appropriately and name had good letter spacing and sizing and was legible. Sukh was also able to connect numbers ( 1-10) in order without errors and without support from clinician. 05/16/20= avg 8.0 pounds of force w/ R control systems drafting officer dynamometer II testing. Short Term Goals 1. 0-40 degrees active R sh extension. 03/27/23 = 50% met; 0-35 degrees R active sh ext GOALS MET -40 degrees passive R elbow ext. 11/07/22 0-30 degrees active R sh abd. *11/07/22 (modified blocking into randa-pattern) 0-20 degrees active R sh flexion. *MET 08/09/21; 0-45 degrees. 04/04/22 = 0-45 degrees . 01/16/23 = 0-45 degrees w/ typical randa pattern 0-20 degrees active R sh extension. *MET 08/09/21; 0-25 degrees. 06/13/22 = 0-35 degrees. 11/07/22 = 0-25 degrees . Able to separate x 5 pvc pipes and their joints, when given 7 opportunities, requiring no more than 1 model from therapist. *MET 01/10/22 Able to position right hand initially on cane vertical/ cane horizontally/golf club without physical assistance (x 3 attempts per session), requiring no more than 1-2 verbal cues from therapist, demonstrating improving functional problem solving, attention, and active incorporation of the right upper extremity/hand. *MET 08/25 Clarifier Goals 1. Sukh will present with increased attention to the right upper extremity, as well as increased functional incorporation of the right upper extremity; this will be evidenced by active incorporation of the right upper extremity/hand with stabilization of objects at TT , 3 to 4 times per week based on family report requiring no more than 1-2 verbal cues per occasion. 03/27/23 = 50% met; min v.c. 2. Sukh will present with increased attention to the right upper extremity, as well as increased joint protection /tone management; this will be evidenced by Sukh's ability to position the distal right upper extremity/hand on arm rest with TT tasks and/or on TT surface, 2 to 3 times per session, requiring minimal verbal cues from therapist to support positioning. 03/27/23 = 25% met max phys assist/mod verbal/visual cueing 3. Sukh will be modified independent with execution of home exercise program (upper extremity and functional activities) with support of family utilizing provided written and visual instructions from therapist. = 75% met - Treatment 3 Descriptor Functional problem solving activities. Bimanual coordination. Attention to the affected UE. Replication of PVC pattern x 1 (assist x 1 to visually scan and locate item/figure ground and x 1 d/t incorrect spatial orientation of PVC joint). 2 Descriptor Tone Management. Positioning of the R hand on the TT w/ fingers in extended position, w/ slight wrist flex. Use of handles in standing at TT; handles positioned horizontally. Weight shift L < -> R x 10. Modified push-up w/ elbow flex/ext x 10 w/ reliance on L UE. Exercises 7 Descriptor Elbow ext. TB #3 (modified place and hold x 3 sec w/ TB and muscle tapping to facilitate). 2 x 10. Elbow flex. Muscle tapping to facilitate. 2 x 10. [ End ] 6 Descriptor Sh ROM. Modified resisted (use of TT). TT Sh flex. 2 x 10 AROM. Resisted 3 x 10 TB #3. TT Sh ext. 2 x 10 AROM. Resisted 3 x 10. TB #4. TT Sh hor abd. 2 x 10 AROM. Resisted 3 x 10. TB #3. Sh abd. 2 x 10 AROM. Resisted 3 x 10. TB #3. - Assessment Assessment of Improvement Sukh was seen 1:1 for OT treatment. Increased assist w/ PVC pipe pattern replication; required assist x 1 w/ figure ground (locating object) and assist x 1 w/ spatial orientation correction of PVC joint. Introduced functional weight shift w/ use of ' handles' positioned horizontally on TT given tone presentation/h/o R elbow injury. Also trialed grasping of 5# DB to discourage positioning of wrist in flexion and a more neutral position. Recommend pursuing additional sequencing activities. Overall, good session. Based on Felicity's report, it is recommended sequencing be further assessed likely using a novel activity; recommend also possibly observing signature. Sukh has not c/o L hand pain; however, hyperextension observed of IPJ of L thumb and joint deformities of multiple digits of the left hand are likely d /t arthritis w/ increased amount of weight being shifted into UE/hand w/ cane use for mobility. Sukh benefits from handling, visual cues and environmental modifications to support motor planning of the right upper extremity. Continued outpatient OT is recommended to address ROM, strength, functional abilities , attention/awareness, bimanual coordination, functional sequencing/motor planning, and functional problem solving, with goal of incorporating right upper extremity in day-to-day life with engagement in functional and meaningful activities. Home Exercise Program 03/28/23 = dycem provided for positioning of the hand out of flexed position on arm rest. Rec following-up w/ director intelligence analysis programs re: w/c. - Plan Therapy Recommendations Continue with Current Program, Advance per Rehabilitation Protocol
--- NOTE | 2023-05-08 14:35 | OT.OP.TRT ---
Visit Care Team Role Provider Type Delfino Epstein MD Attending Provider Physician Primary Care Provider Referring Provider Specialty: Family Practice Address: [address] [place] [address], [id number] Email: [email or web address] Occupational Therapy Treatment Note OT Outpatient Treatment Note - Adult Start: 05/18/21 12:52 Freq: Status: Active Protocol: Document 05/08/23 14:29 AMS (Rec: 05/08/23 14:35 AMS [id number]) OT Outpatient Adult Treatment Note Session Time Visit Start Time 12:15 Visit Stop Time 13:00 Total Visit Minutes 45 Visit Information Visit Number 26 - OT 2022 visits Plan of Care Dates 03/27/23 - 06/05/23 Insurance Information [facility]; no pre-auth req to annual plan max; max 80/combo Setting Treatment Setting Outpatient Care Visit Type Note Type Treatment Note General Information General Information Patient is a 67 year-old male referred to outpatient OT by PCP; patient was accompanied to initial eval by . 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 Patient has been seen in outpatient clinic at [facility] for OT, PT, and SAW SUPERINTENDENT. He was recently hospitalized 06/22/19 d/t 3 falls that occurred on the same day. He was d/c and then re-hospitalized in August 2019. He was identified to have low sodium. Post hospitalization patient had Home Health OT; Home Health HEP was designed as follows: shoulder flex; sh abd; sh hor abd; wrist ext; positioning of hand/wrist on towel; PROM of digits of L hand; passive elbow flexion/ext. HEP also includes writing of name and squeezing putty. Frequency is 1 x per day, 10 reps. PMH: significant for RA; blood clots; depression; diabetes mellitus I; falls; depression; heart attack; pacemaker; neuropathy; R elbow surgery. - Subjective Identification Type Name Identification Reconciled With Medical Record Observations Sukh was seen 1:1 for OT treatment session. 03/27/23 = Per Diele, Sukh has been having difficulties with sequencing. For instance, he stood up prior to putting his pants on over his legs. He has also been demonstrating some decreased safety awareness including leaving the home and going on a walk without telling anyone. Per Felicity, current manual w/c is cumbersome and difficult for her to manage (including putting in and taking out of the car) and was obtained 10+ years ago. Sexual Assault Counsellor is assisting with bath set-up at this time in the home. = Felicity Briones and her , Elvis, have been primarily overseeing Sukh's execution of exercises in the home (for SAW SUPERINTENDENT, PT, and OT). Patient/Caregiver Compliance with Home Good Exercise Program Comment w/ family support - Objective Objective Measurements Please refer to below for progress towards meeting established OT goals. 04/03/23 = Able to copy his first name utilizing writing utensil positioned in the L hand; copying took increased time and there was some ' shakiness' observed in curves and lines, however, he sequenced letters appropriately and name had good letter spacing and sizing and was legible. Sukh was also able to connect numbers ( 1-10) in order without errors and without support from clinician. 05/16/20= avg 8.0 pounds of force w/ R job order clerk dynamometer II testing. Short Term Goals 1. 0-40 degrees active R sh extension. 03/27/23 = 50% met; 0-35 degrees R active sh ext GOALS MET -40 degrees passive R elbow ext. 11/07/22 0-30 degrees active R sh abd. *11/07/22 (modified blocking into randa-pattern) 0-20 degrees active R sh flexion. *MET 08/09/21; 0-45 degrees. 04/04/22 = 0-45 degrees . 01/16/23 = 0-45 degrees w/ typical randa pattern 0-20 degrees active R sh extension. *MET 08/09/21; 0-25 degrees. 06/13/22 = 0-35 degrees. 11/07/22 = 0-25 degrees . Able to separate x 5 pvc pipes and their joints, when given 7 opportunities, requiring no more than 1 model from therapist. *MET 01/10/22 Able to position right hand initially on cane vertical/ cane horizontally/golf club without physical assistance (x 3 attempts per session), requiring no more than 1-2 verbal cues from therapist, demonstrating improving functional problem solving, attention, and active incorporation of the right upper extremity/hand. *MET 08/25 Housekeeper Head Goals 1. Sukh will present with increased attention to the right upper extremity, as well as increased functional incorporation of the right upper extremity; this will be evidenced by active incorporation of the right upper extremity/hand with stabilization of objects at TT , 3 to 4 times per week based on family report requiring no more than 1-2 verbal cues per occasion. 03/27/23 = 50% met; min v.c. 2. Sukh will present with increased attention to the right upper extremity, as well as increased joint protection /tone management; this will be evidenced by Sukh's ability to position the distal right upper extremity/hand on arm rest with TT tasks and/or on TT surface, 2 to 3 times per session, requiring minimal verbal cues from therapist to support positioning. 03/27/23 = 25% met max phys assist/mod verbal/visual cueing 3. Sukh will be modified independent with execution of home exercise program (upper extremity and functional activities) with support of family utilizing provided written and visual instructions from therapist. = 75% met - Treatment 3 Descriptor Functional problem solving activities. Bimanual coordination. Attention to the affected UE. Replication of PVC pattern x contact guard physical assistance. 2 Descriptor Tone Management. Positioning of the R hand on the TT w/ fingers in extended position, w/ slight wrist flex. Use of handles in standing at TT; handles positioned horizontally. Weight shift L < -> R. 3 x 10. Exercises 7 Descriptor Elbow ext. TB #3 (modified place and hold x 3 sec w/ TB and muscle tapping to facilitate). 2 x 10. Elbow flex. Muscle tapping to facilitate. 2 x 10. [ End ] 6 Descriptor Sh ROM. Modified resisted (use of TT). TT Sh flex. 2 x 10 AROM. Resisted 3 x 10 TB #3. TT Sh ext. 2 x 10 AROM. Resisted 3 x 10. TB #4. TT Sh hor abd. 2 x 10 AROM. Resisted 3 x 10. TB #3. Sh abd. 2 x 10 AROM. Resisted 3 x 10. TB #3. - Assessment Assessment of Improvement Sukh was seen 1:1 for OT treatment. Tendency into wrist flexion w/ functional weight bearing w/ use of handles while in standing. Use of weighted spherical ball to assist w/ positioning of R wrist in slight extension to discourage positioning of distal UE in randa pattern. (+) response to positioning of distal UE w/ use of weighted spherical ball versus range of motion being provided by therapist despite preparatory attempt at WB w/ wooden handles. Recommend pursuing additional sequencing activities. Overall, good session. Based on Felicity's report, it is recommended sequencing be further assessed likely using a novel activity; recommend also possibly observing signature. Sukh has not c/o L hand pain; however, hyperextension observed of IPJ of L thumb and joint deformities of multiple digits of the left hand are likely d /t arthritis w/ increased amount of weight being shifted into UE/hand w/ cane use for mobility. Sukh benefits from handling, visual cues and environmental modifications to support motor planning of the right upper extremity. Continued outpatient OT is recommended to address ROM, strength, functional abilities , attention/awareness, bimanual coordination, functional sequencing/motor planning, and functional problem solving, with goal of incorporating right upper extremity in day-to-day life with engagement in functional and meaningful activities. Home Exercise Program 03/28/23 = dycem provided for positioning of the hand out of flexed position on arm rest. Rec following-up w/ media strategist re: w/c. - Plan Therapy Recommendations Continue with Current Program, Advance per Rehabilitation Protocol
--- NOTE | 2023-05-15 16:03 | OT.OP.TRT ---
Visit Care Team Role Provider Type Delfino Epstein MD Attending Provider Physician Primary Care Provider Referring Provider Specialty: Family Practice Address: [address] [place] [address], [id number] Email: [email or web address] Occupational Therapy Treatment Note OT Outpatient Treatment Note - Adult Start: 05/18/21 12:52 Freq: Status: Active Protocol: Document 05/15/23 15:58 AMS (Rec: 05/15/23 16:03 AMS [id number]) OT Outpatient Adult Treatment Note Session Time Visit Start Time 12:15 Visit Stop Time 13:00 Total Visit Minutes 45 Visit Information Visit Number 27 - OT 2022 visits Plan of Care Dates 03/27/23 - 06/05/23 Insurance Information [facility]; no pre-auth req to annual plan max; max 80/combo Setting Treatment Setting Outpatient Care Visit Type Note Type Treatment Note General Information General Information Patient is a 67 year-old male referred to outpatient OT by PCP; patient was accompanied to initial eval by . 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 Patient has been seen in outpatient clinic at [facility] for OT, PT, and ENROLLMENT MANAGEMENT DIRECTOR. He was recently hospitalized 06/22/19 d/t 3 falls that occurred on the same day. He was d/c and then re-hospitalized in August 2019. He was identified to have low sodium. Post hospitalization patient had Home Health OT; Home Health HEP was designed as follows: shoulder flex; sh abd; sh hor abd; wrist ext; positioning of hand/wrist on towel; PROM of digits of L hand; passive elbow flexion/ext. HEP also includes writing of name and squeezing putty. Frequency is 1 x per day, 10 reps. PMH: significant for RA; blood clots; depression; diabetes mellitus I; falls; depression; heart attack; pacemaker; neuropathy; R elbow surgery. - Subjective Identification Type Name Identification Reconciled With Medical Record Observations Sukh was accompanied by his , Felicity, to OT treatment session. Report of recent fall last weekend w/ call to 911 secondary to drop in blood sugars; this is currently being monitored. 03/27/23 = Per Felicity, Sukh has been having difficulties with sequencing. For instance, he stood up prior to putting his pants on over his legs. He has also been demonstrating some decreased safety awareness including leaving the home and going on a walk without telling anyone. Per Felicity, current manual w/c is cumbersome and difficult for her to manage (including putting in and taking out of the car) and was obtained 10+ years ago. Unit Trust Manager is assisting with bath set-up at this time in the home. = Felicity Briones and her , Elvis, have been primarily overseeing Sukh's execution of exercises in the home (for ENROLLMENT MANAGEMENT DIRECTOR, PT, and OT). Patient/Caregiver Compliance with Home Good Exercise Program Comment w/ family support - Objective Objective Measurements Please refer to below for progress towards meeting established OT goals. 04/03/23 = Able to copy his first name utilizing writing utensil positioned in the L hand; copying took increased time and there was some ' shakiness' observed in curves and lines, however, he sequenced letters appropriately and name had good letter spacing and sizing and was legible. Sukh was also able to connect numbers ( 1-10) in order without errors and without support from clinician. 05/16/20= avg 8.0 pounds of force w/ R naval special warfare medic dynamometer II testing. Short Term Goals 1. 0-40 degrees active R sh extension. 03/27/23 = 50% met; 0-35 degrees R active sh ext GOALS MET -40 degrees passive R elbow ext. 11/07/22 0-30 degrees active R sh abd. *11/07/22 (modified blocking into randa-pattern) 0-20 degrees active R sh flexion. *MET 08/09/21; 0-45 degrees. 04/04/22 = 0-45 degrees . 01/16/23 = 0-45 degrees w/ typical randa pattern 0-20 degrees active R sh extension. *MET 08/09/21; 0-25 degrees. 06/13/22 = 0-35 degrees. 11/07/22 = 0-25 degrees . Able to separate x 5 pvc pipes and their joints, when given 7 opportunities, requiring no more than 1 model from therapist. *MET 01/10/22 Able to position right hand initially on cane vertical/ cane horizontally/golf club without physical assistance (x 3 attempts per session), requiring no more than 1-2 verbal cues from therapist, demonstrating improving functional problem solving, attention, and active incorporation of the right upper extremity/hand. *MET 08/25 Snf Goals 1. Sukh will present with increased attention to the right upper extremity, as well as increased functional incorporation of the right upper extremity; this will be evidenced by active incorporation of the right upper extremity/hand with stabilization of objects at TT , 3 to 4 times per week based on family report requiring no more than 1-2 verbal cues per occasion. 03/27/23 = 50% met; min v.c. 2. Sukh will present with increased attention to the right upper extremity, as well as increased joint protection /tone management; this will be evidenced by Sukh's ability to position the distal right upper extremity/hand on arm rest with TT tasks and/or on TT surface, 2 to 3 times per session, requiring minimal verbal cues from therapist to support positioning. 03/27/23 = 25% met max phys assist/mod verbal/visual cueing 3. Sukh will be modified independent with execution of home exercise program (upper extremity and functional activities) with support of family utilizing provided written and visual instructions from therapist. = 75% met - Treatment 3 Descriptor Functional problem solving activities. Bimanual coordination. Attention to the affected UE. Replication of PVC pattern x 1 . 2 Descriptor Tone Management. Positioning of the R hand on the TT w/ fingers in extended position, w/ slight wrist flex w/ use of weighted spherical ball. Use of handles in standing at TT; handles positioned horizontally. Weight shift L < -> R 3 x 10. Forwards <-> backwards 1 x 10. Exercises 7 Descriptor Elbow ext. TB #3 (modified place and hold x 3 sec w/ TB and muscle tapping to facilitate). 2 x 10. Elbow flex. Muscle tapping to facilitate. 2 x 10. [ End ] 6 Descriptor Sh ROM. Modified resisted (use of TT). TT Sh flex. 2 x 10 AROM. Resisted 3 x 10 TB #3. TT Sh ext. 2 x 10 AROM. Resisted 3 x 10. TB #4. TT Sh hor abd. 2 x 10 AROM. Resisted 3 x 10. TB #3. Sh abd. 2 x 10 AROM. Resisted 3 x 10. TB #3. 2 Descriptor Red flex bar. Bending of flex bar 1 x 10. Min phys assist to support grasp w/ the right hand. - Assessment Assessment of Improvement Sukh was accompanied by his , Felicity, to treatment session; concerns re: changes in blood sugars. Tendency into wrist flexion w/ functional weight bearing w/ use of handles while in standing. Use of weighted spherical ball to assist w/ positioning of R wrist in slight extension to discourage positioning of distal UE in randa pattern. Introduced red flex bar to address R hand naval special warfare medic strength and support contralateral object stabilization for R hand object manipulation. Recommend pursuing additional sequencing activities. Overall , good session. Sukh has not c/o L hand pain ; however, hyperextension observed of IPJ of L thumb and joint deformities of multiple digits of the left hand are likely d/t arthritis w/ increased amount of weight being shifted into UE/hand w/ cane use for mobility. Sukh benefits from handling, visual cues and environmental modifications to support motor planning of the right upper extremity. Continued outpatient OT is recommended to address ROM, strength, functional abilities, attention/awareness, bimanual coordination, functional sequencing/motor planning, and functional problem solving, with goal of incorporating right upper extremity in day- to-day life with engagement in functional and meaningful activities. Home Exercise Program 03/28/23 = dyrafaelam provided for positioning of the hand out of flexed position on arm rest. Rec following-up w/ news assignment editor re: w/c. - Plan Therapy Recommendations Continue with Current Program, Advance per Rehabilitation Protocol
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
--- NOTE | 2023-05-29 16:00 | OT.OP.TRT ---
Visit Care Team Role Provider Type Delfino Epstein MD Attending Provider Physician Primary Care Provider Referring Provider Specialty: Family Practice Address: [address] [place] [address], [id number] Email: [email or web address] Occupational Therapy Treatment Note OT Outpatient Treatment Note - Adult Start: 05/18/21 12:52 Freq: Status: Active Protocol: Document 05/29/23 16:00 AMS (Rec: 05/30/23 07:32 AMS [id number]) OT Outpatient Adult Treatment Note Session Time Visit Start Time 12:15 Visit Stop Time 13:00 Total Visit Minutes 45 Visit Information Visit Number 29 - OT 2022 visits Plan of Care Dates 03/27/23 - 06/05/23 Insurance Information [facility]; no pre-auth req to annual plan max; max 80/combo Setting Treatment Setting Outpatient Care Visit Type Note Type Treatment Note General Information General Information Patient is a 67 year-old male referred to outpatient OT by PCP; patient was accompanied to initial eval by . 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 He was recently hospitalized 06/22/19 d/t 3 falls that occurred on the same day. He was d/c and then re-hospitalized in August 2019. He was identified to have low sodium. Post hospitalization patient had Home Health OT; Home Health HEP was designed as follows: shoulder flex; sh abd; sh hor abd; wrist ext; positioning of hand/wrist on towel; PROM of digits of L hand; passive elbow flexion/ext. HEP also includes writing of name and squeezing putty. Frequency is 1 x per day, 10 reps. PMH: significant for RA; blood clots; depression; diabetes mellitus I; falls; depression; heart attack; pacemaker; neuropathy; R elbow surgery. - Subjective Identification Type Name Identification Reconciled With Medical Record Observations Sukh Blevins's , accompanied him to OT treatment session. Blood sugars are still being monitored; currently, the couple are waiting on insurance. 03/27/23 = Per FelicitySukh has been having difficulties with sequencing. For instance, he stood up prior to putting his pants on over his legs. He has also been demonstrating some decreased safety awareness including leaving the home and going on a walk without telling anyone. Per Felicity, current manual w/c is cumbersome and difficult for her to manage (including putting in and taking out of the car) and was obtained 10+ years ago. Borderer is assisting with bath set-up at this time in the home. = Felicity Briones and her , Elvis, have been primarily overseeing Sukh's execution of exercises in the home (for PRODUCT CONTROLLER, PT, and OT). Patient/Caregiver Compliance with Home Good Exercise Program Comment w/ family support - Objective Objective Measurements Please refer to below for progress towards meeting established OT goals. 04/03/23 = Able to copy his first name utilizing writing utensil positioned in the L hand; copying took increased time and there was some ' shakiness' observed in curves and lines, however, he sequenced letters appropriately and name had good letter spacing and sizing and was legible. Sukh was also able to connect numbers ( 1-10) in order without errors and without support from clinician. 05/16/20= avg 8.0 pounds of force w/ R major gifts manager dynamometer II testing. Short Term Goals 1. 0-40 degrees active R sh extension. 03/27/23 = 50% met; 0-35 degrees R active sh ext GOALS MET -40 degrees passive R elbow ext. 11/07/22 0-30 degrees active R sh abd. *11/07/22 (modified blocking into randa-pattern) 0-20 degrees active R sh flexion. *MET 08/09/21; 0-45 degrees. 04/04/22 = 0-45 degrees . 01/16/23 = 0-45 degrees w/ typical randa pattern 0-20 degrees active R sh extension. *MET 08/09/21; 0-25 degrees. 06/13/22 = 0-35 degrees. 11/07/22 = 0-25 degrees . Able to separate x 5 pvc pipes and their joints, when given 7 opportunities, requiring no more than 1 model from therapist. *MET 01/10/22 Able to position right hand initially on cane vertical/ cane horizontally/golf club without physical assistance (x 3 attempts per session), requiring no more than 1-2 verbal cues from therapist, demonstrating improving functional problem solving, attention, and active incorporation of the right upper extremity/hand. *MET 08/25 Detention Goals 1. Sukh will present with increased attention to the right upper extremity, as well as increased functional incorporation of the right upper extremity; this will be evidenced by active incorporation of the right upper extremity/hand with stabilization of objects at TT , 3 to 4 times per week based on family report requiring no more than 1-2 verbal cues per occasion. 03/27/23 = 50% met; min v.c. 2. Sukh will present with increased attention to the right upper extremity, as well as increased joint protection /tone management; this will be evidenced by Sukh's ability to position the distal right upper extremity/hand on arm rest with TT tasks and/or on TT surface, 2 to 3 times per session, requiring minimal verbal cues from therapist to support positioning. 03/27/23 = 25% met max phys assist/mod verbal/visual cueing 3. Sukh will be modified independent with execution of home exercise program (upper extremity and functional activities) with support of family utilizing provided written and visual instructions from therapist. = 75% met - Treatment 3 Descriptor Functional problem solving activities. Bimanual coordination. Attention to the affected UE. Replication of PVC pattern x 1 . 2 Descriptor Tone Management. Positioning of the R hand on the TT w/ fingers in extended position, w/ slight wrist flex w/ use of weighted spherical ball. Use of handles in standing at TT; handles positioned horizontally. Weight shift L < -> R 3 x 10. Forwards <-> backwards 1 x 10. Exercises 7 Descriptor Elbow ext. TB #3 (modified place and hold x 3 sec w/ TB and muscle tapping to facilitate). 2 x 10. Elbow flex. Muscle tapping to facilitate. 2 x 10. [ End ] 6 Descriptor Sh ROM. Modified resisted (use of TT). TT Sh flex. 2 x 10 AROM. Resisted 3 x 10 TB #4. TT Sh ext. 2 x 10 AROM. Resisted 3 x 10. TB #4. TT Sh hor abd. 2 x 10 AROM. Resisted 3 x 10. TB #4. Sh abd. 2 x 10 AROM. Resisted 3 x 10. TB #4. 4 Descriptor Rolled yoga mat. Bilateral sh flexion. 3 x 10. 3 Descriptor Arm pulleys. x 2 min, various directions while seated (elbow flex/ext: R of body, directly in front of body). Able to maintain grasp of handle. Decreased sh flex noted w/ chuy anchor positioned above eye level; increased success w/ anchoring below sh level and focusing on elbow flex/ext. 2 Descriptor Red flex bar. Bending of flex bar 1 x 10; 1 x 5. Min phys assist to support grasp w/ the right hand. - Assessment Assessment of Improvement Scab formed on the R lateral elbow; was unsure of cause. Concern noted re: R forearm/proximal arm (elbow flex/ext). Tendency into wrist flexion w/ functional weight bearing w/ use of handles while in standing. Based on interest, re-introduced pulleys seated. Also trialed bilateral sh flex at TT w/ use of rolled yoga mat to increase sh flex range of motion and encouragement of elbow extension. c/o L hand/ thumb discomfort w/ approx 15 reps w/ red flex bar; will need to monitor grasp of flex bar. Overall, good session. Sukh has not c/o L hand pain ; however, hyperextension observed of IPJ of L thumb and joint deformities of multiple digits of the left hand are likely d/t arthritis w/ increased amount of weight being shifted into UE/hand w/ cane use for mobility. Sukh benefits from handling, visual cues and environmental modifications to support motor planning of the right upper extremity. Continued outpatient OT is recommended to address ROM, strength, functional abilities, attention/awareness, bimanual coordination, functional sequencing/motor planning, and functional problem solving, with goal of incorporating right upper extremity in day- to-day life with engagement in functional and meaningful activities. Home Exercise Program 03/28/23 = dycem provided for positioning of the hand out of flexed position on arm rest. Rec following-up w/ assistant dean re: w/c. - Plan Therapy Recommendations Continue with Current Program, Advance per Rehabilitation Protocol
--- NOTE | 2023-07-11 09:18 | OT.OP.DC ---
Visit Care Team Role Provider Type Delfino Epstein MD Attending Provider Physician Primary Care Provider Referring Provider Address: [address] [place] [address], [id number] Email: [email or web address] Outpatient OT Outpatient Adult Evaluation Start: 05/18/21 12:52 Freq: Status: Active Protocol: Document 05/18/21 12:53 AMS (Rec: 05/18/21 13:18 AMS [id number]) General Information Session Time Visit Start Time 09:30 Visit Stop Time 10:15 Total Visit Minutes 45 Visit Information Plan of Care Dates 05/18/21-08/10/21 Insurance Information [facility]; pre- auth required >18 OT visits; max 80/combo PT Setting Treatment Setting Outpatient Care Referral Referring Physician Delfino Epstein MD Reason for Referral Generalized Weakness Identification Identification Confirmed Yes Identification Confirmed By Felicity Goals Treatment Treatment TT ROM. Bimanual activities. Short Term Goals Short Term Goals 1. 0-20 degrees active R sh flexion. 2. 0-20 degrees active R sh extension. Process Analyst Goals Group Home Goals 1. Sukh will present with increased attention to the right upper extremity, as well as increased functional incorporation of the right upper extremity; this will be evidenced by active incorporation of the right upper extremity/hand with stabilization of objecs at TT, 3 to 4 times per week based on family report requiring no more than 1-2 verbal cues per occasion. 2. Sukh will be modified independent with execution of home exercise program (upper extremity and functional activities) with support of family utilizing provided written and visual instructions from therapist. Assessment/Plan Assessment Treatment Assessment Patient is 65 year-old male referred to outpatient OT by PCP, Delfino Epstein MD, secondary to generalized weakness. PMH: Significant for Antiphospholipid antibody syndrome; Aphasia; CAD; Cardiac Arrhythmia; CVA involving L MCA territory ; Chronic atrial flutter; Chronic systolic CHF; CAD involving standing rock coronary artery; DM; DVT; Essential HTN ; Hemiparesis affectiving dominant side 01/27/15; Hyperlipidemia; [place]; Pacemaker; RA; Stenosis of left carotid artery; Systolic heart failure . Patient has been seen here at [facility] outpatient therapy services over the years; he is currently receiving outpatient PT. Patient was d/c in December of 2020. His last fall occurred approx 1-2 months ago on the deck. Patient has R hemishoulder/subluxation sling and R GivMohr Sling; he prefers R randa/subluxation sling; however, he did not come to session w/ sling on. Patient/Family Goals: Address attn R side/R UE; functional incorporation of R UE; strength; motor planning Evaluation Findings: Initial intake paperwork completed by Felicity. QuickDASH UE Outcome Measure Score = 62.5. Avg 7.0# of force w/ R office lead dynamometer II strength testing. -40 degrees passive R elbow ext. 40 degrees active elbow flex. 0-5 degrees active R sh extension. 0-20 degrees active R sh flexion. 0-0 degrees active R sh abd. R sided neglect; learned non-use w/ increased reliance on L UE . Decreased activity tolerance . Decreased sitting posture. Sukh has positively responded to outpatient services in the past. Outpatient OT is recommended to address range of motion, positioning of the UE, strength of the UE, as well as attention and active incorporation of the R UE in day-to-day life. Plan Comment 12 weeks Treatment Frequency Once a Week Therapeutic Contents Active Range of Motion, Adaptive Equipment Education, Client Education,Cognitive Skills Development,Functional Activities,Home Exercise Program,Joint Protection, Manual Therapy,Education, Neurodevelopment Treatment, Neuromuscular Re-Education, Self-Care,Splinting, Therapeutic Activities, Therapeutic Exercises,Sensory Re-education Modalities As Needed,As Prescribed Additional Types of Modalities Heat Sensory Assessment Sensory Profile2 Functional Wrist/Hand Scan Hand Side OT Outpatient Treatment Note - Adult Start: 05/18/21 12:52 Freq: Status: Active Protocol: Document 07/11/23 09:16 [facility] (Rec: 07/11/23 09:18 [facility] [id number]) OT Outpatient Adult Treatment Note Visit Information Visit Number 29 - OT 2022 visits Plan of Care Dates 03/27/23 - 06/05/23 Insurance Information [facility]; no pre-auth req to annual plan max; max 80/combo Setting Treatment Setting Outpatient Care Visit Type Note Type Discharge Summary - Subjective Observations Sukh has not been seen in the outpatient setting by OT since 05/29/23 and POC on 06/05/23; thus, recommend d/c from outpatient OT at this time. Recommend re-evaluating for OT as deemed appropriate by PCP w/ new referral. - Objective Objective Measurements Please refer to below for progress towards meeting established OT goals. 04/03/23 = Able to copy his first name utilizing writing utensil positioned in the L hand; copying took increased time and there was some ' shakiness' observed in curves and lines, however, he sequenced letters appropriately and name had good letter spacing and sizing and was legible. Sukh was also able to connect numbers ( 1-10) in order without errors and without support from clinician. 05/16/20= avg 8.0 pounds of force w/ R office lead dynamometer II testing. Short Term Goals GOALS D/C 07/11/23 1. 0-40 degrees active R sh extension. 03/27/23 = 50% met; 0-35 degrees R active sh ext GOALS MET -40 degrees passive R elbow ext. 11/07/22 0-30 degrees active R sh abd. *11/07/22 (modified blocking into randa-pattern) 0-20 degrees active R sh flexion. *MET 08/09/21; 0-45 degrees. 04/04/22 = 0-45 degrees . 01/16/23 = 0-45 degrees w/ typical randa pattern 0-20 degrees active R sh extension. *MET 08/09/21; 0-25 degrees. 06/13/22 = 0-35 degrees. 11/07/22 = 0-25 degrees . Able to separate x 5 pvc pipes and their joints, when given 7 opportunities, requiring no more than 1 model from therapist. *MET 01/10/22 Able to position right hand initially on cane vertical/ cane horizontally/golf club without physical assistance (x 3 attempts per session), requiring no more than 1-2 verbal cues from therapist, demonstrating improving functional problem solving, attention, and active incorporation of the right upper extremity/hand. *MET 08/25 Group Home Goals ALL GOALS D/C 07/11/23 1Dayanna Luz will present with increased attention to the right upper extremity, as well as increased functional incorporation of the right upper extremity; this will be evidenced by active incorporation of the right upper extremity/hand with stabilization of objects at TT , 3 to 4 times per week based on family report requiring no more than 1-2 verbal cues per occasion. 03/27/23 = 50% met; min v.c. 2. Sukh will present with increased attention to the right upper extremity, as well as increased joint protection /tone management; this will be evidenced by Sukh's ability to position the distal right upper extremity/hand on arm rest with TT tasks and/or on TT surface, 2 to 3 times per session, requiring minimal verbal cues from therapist to support positioning. 03/27/23 = 25% met max phys assist/mod verbal/visual cueing 3. Sukh will be modified independent with execution of home exercise program (upper extremity and functional activities) with support of family utilizing provided written and visual instructions from therapist. = 75% met - - Assessment Assessment of Improvement Sukh has not been seen in the outpatient setting by OT since 05/29/23 and POC on 06/05/23; thus, recommend d/c from outpatient OT at this time. Recommend re-evaluating for OT as deemed appropriate by PCP w/ new referral. - Plan Therapy Recommendations Discharge from Occupational Therapy
== END 2023-07-11 15:08 | disposition home or self-care (01) ==
LOC: OT 12:15
PROVIDERS: PCP Family Medicine; Referring Provider Family Medicine; Visit Provider Family Medicine
DX: R53.1 Weakness (principal); I69.359 Hemiplegia and hemiparesis following cerebral infarction affecting unspecified side
CPT/HCPCS: 97110; 97112; 97165; 97530; 97535

== ENCOUNTER → 2023-07-02 15:16 | Outpatient (CLI) | payer OTHER, MEDICARE, SELFPAY ==
[2019-09-02 12:00] VITALS: BMI 23.4
[2023-07-02 17:11] LABS: Add Manual Diff / Slide Review NO; Basophils Absolute Auto 0 /uL (0-100); Eosinophils Absolute Auto 200 /uL (0-450); Eosinophils Percent Auto 3.5 % (2-4); Hematocrit 37.1 % (41-53); Hemoglobin 12.9 g/dL (13.5-17.5); Lymphocytes Absolute Auto 1000 /uL (1100-4500); Lymphocytes Percent Auto 23.4 % (25-40); Mean Corpuscular HGB Conc 34.7 % (30-36); Mean Corpuscular Hemoglobin 31.8 PG (26-34); Mean Corpuscular Volume 91.4 fL (80-100); Monocytes Absolute Auto 500 /uL (0-900); Monocytes Percent Auto 11.3 % (3-14); Neutrophils Absolute Auto 2700 /uL (1500-7000); Neutrophils Percent Auto 60.8 % (50-75); Platelet Count 165 X10^3/uL (150-400); Red Blood Cell Count 4.06 X10^6/uL (4.5-5.9); Red Cell Distribution Width 15.1 % (11.6-14.8); White Blood Cell Count 4.4 X10^3/uL (4.5-11.0)
[2023-07-02 17:28] LABS: Alanine Aminotransferase 24 IU/L (<50); Albumin 3.9 g/dL (3.5-5.0); Albumin Globulin Ratio 0.9 (1.0-2.8); Alkaline Phosphatase 53 U/L (38-126); Aspartate Aminotransferase 33 IU/L (17-59); BUN Creatinine Ratio 14.6 (6-22); Bilirubin Total 0.3 mg/dL (0.2-1.3); Blood Urea Nitrogen 15 mg/dL (9-20); C-Reactive Protein Quant < 0.5 mg/dL (<1.0); Calcium 9.2 mg/dL (8.4-10.2); Carbon Dioxide 28 mmol/L (22-32); Chloride 96 mmol/L (98-107); Estimated Glomerular Filt Rate > 60 mL/min (>60); Globulin 4.3 g/dL (1.7-4.1); Glucose 156 mg/dL (80-110); HEMOLYSIS < 15 (0-50); Potassium 4.2 mmol/L (3.4-5.1); Sodium 133 mmol/L (137-145); Total Protein 8.2 g/dL (6.3-8.2)
[2023-07-02 19:34] LABS: Erythrocyte Sedimentation Rate 35 MM/HR (0-15)
== END ==
PROVIDERS: Family Provider Family Medicine; PCP Family Medicine; Referring Provider Physician Assistant; Visit Provider Physician Assistant
DX: Z79.899 Other long term (current) drug therapy (principal); M06.9 Rheumatoid arthritis, unspecified
CPT/HCPCS: 80053; 85025; 85651; 86140

== ENCOUNTER → 2023-08-12 14:09 | Outpatient (CLI) | payer MEDICARE, SELFPAY ==
[2019-09-02 12:00] VITALS: BMI 23.4
[2023-08-12 14:42] LABS: Add Manual Diff / Slide Review NO; Basophils Absolute Auto 0 /uL (0-100); Basophils Percent Auto 0.7 % (0-2); Eosinophils Absolute Auto 200 /uL (0-450); Eosinophils Percent Auto 3.3 % (2-4); Hematocrit 36.6 % (41-53); Hemoglobin 12.8 g/dL (13.5-17.5); Lymphocytes Absolute Auto 900 /uL (1100-4500); Lymphocytes Percent Auto 18.5 % (25-40); Mean Corpuscular HGB Conc 35.1 % (30-36); Mean Corpuscular Hemoglobin 32.2 PG (26-34); Mean Corpuscular Volume 91.7 fL (80-100); Monocytes Absolute Auto 500 /uL (0-900); Monocytes Percent Auto 11.2 % (3-14); Neutrophils Absolute Auto 3100 /uL (1500-7000); Neutrophils Percent Auto 66.3 % (50-75); Platelet Count 182 X10^3/uL (150-400); Red Blood Cell Count 3.99 X10^6/uL (4.5-5.9); Red Cell Distribution Width 15.3 % (11.6-14.8); White Blood Cell Count 4.7 X10^3/uL (4.5-11.0)
== END ==
PROVIDERS: Family Provider Family Medicine; PCP Family Medicine; Referring Provider Physician Assistant; Visit Provider Physician Assistant
DX: Z79.899 Other long term (current) drug therapy (principal); M06.9 Rheumatoid arthritis, unspecified
CPT/HCPCS: 36415; 85025

== ENCOUNTER → 2023-09-30 15:04 | Outpatient (CLI) | payer MEDICARE, SELFPAY ==
[2019-09-02 12:00] VITALS: BMI 23.4
[2023-09-30 15:29] LABS: Add Manual Diff / Slide Review NO; Basophils Absolute Auto 0 /uL (0-100); Basophils Percent Auto 0.9 % (0-2); Eosinophils Absolute Auto 100 /uL (0-450); Eosinophils Percent Auto 2.7 % (2-4); Hematocrit 36.9 % (41-53); Hemoglobin 12.9 g/dL (13.5-17.5); Lymphocytes Absolute Auto 800 /uL (1100-4500); Lymphocytes Percent Auto 18.9 % (25-40); Mean Corpuscular HGB Conc 34.8 % (30-36); Mean Corpuscular Hemoglobin 32.3 PG (26-34); Mean Corpuscular Volume 92.8 fL (80-100); Monocytes Absolute Auto 600 /uL (0-900); Monocytes Percent Auto 14.2 % (3-14); Neutrophils Absolute Auto 2800 /uL (1500-7000); Neutrophils Percent Auto 63.3 % (50-75); Platelet Count 174 X10^3/uL (150-400); Red Blood Cell Count 3.98 X10^6/uL (4.5-5.9); Red Cell Distribution Width 15.9 % (11.6-14.8); White Blood Cell Count 4.4 X10^3/uL (4.5-11.0)
[2023-09-30 16:24] LABS: Alanine Aminotransferase 24 IU/L (<50); Albumin 3.9 g/dL (3.5-5.0); Albumin Globulin Ratio 0.9 (1.0-2.8); Alkaline Phosphatase 57 U/L (38-126); Aspartate Aminotransferase 32 IU/L (17-59); BUN Creatinine Ratio 15.8 (6-22); Bilirubin Total 0.5 mg/dL (0.2-1.3); Blood Urea Nitrogen 15 mg/dL (9-20); C-Reactive Protein Quant 0.5 mg/dL (<1.0); Calcium 9.4 mg/dL (8.4-10.2); Carbon Dioxide 27 mmol/L (22-32); Chloride 96 mmol/L (98-107); Estimated Glomerular Filt Rate > 60 mL/min (>60); Globulin 4.3 g/dL (1.7-4.1); Glucose 148 mg/dL (80-110); HEMOLYSIS < 15 (0-50); Potassium 4.4 mmol/L (3.4-5.1); Sodium 130 mmol/L (137-145); Total Protein 8.2 g/dL (6.3-8.2)
[2023-09-30 16:30] LABS: Erythrocyte Sedimentation Rate 48 MM/HR (0-15)
== END ==
PROVIDERS: Family Provider Family Medicine; PCP Family Medicine; Referring Provider Physician Assistant; Visit Provider Physician Assistant
DX: M06.9 Rheumatoid arthritis, unspecified (principal)
CPT/HCPCS: 36415; 80053; 85025; 85651; 86140

== ENCOUNTER → 2024-01-27 11:34 | Outpatient (CLI) | payer MEDICARE, SELFPAY ==
[2019-09-02 12:00] VITALS: BMI 23.4
[2024-01-27 12:30] LABS: Add Manual Diff / Slide Review NO; Basophils Absolute Auto 0 /uL (0-100); Basophils Percent Auto 0.5 % (0-2); Eosinophils Absolute Auto 100 /uL (0-450); Eosinophils Percent Auto 2.4 % (2-4); Hematocrit 37.3 % (41-53); Hemoglobin 12.9 g/dL (13.5-17.5); Lymphocytes Absolute Auto 800 /uL (1100-4500); Lymphocytes Percent Auto 17.4 % (25-40); Mean Corpuscular HGB Conc 34.4 % (30-36); Mean Corpuscular Hemoglobin 32.6 PG (26-34); Mean Corpuscular Volume 94.6 fL (80-100); Monocytes Absolute Auto 700 /uL (0-900); Monocytes Percent Auto 16.2 % (3-14); Neutrophils Absolute Auto 2800 /uL (1500-7000); Neutrophils Percent Auto 63.5 % (50-75); Platelet Count 155 X10^3/uL (150-400); Red Blood Cell Count 3.95 X10^6/uL (4.5-5.9); Red Cell Distribution Width 16.1 % (11.6-14.8); White Blood Cell Count 4.4 X10^3/uL (4.5-11.0)
[2024-01-27 12:55] LABS: Erythrocyte Sedimentation Rate 37 MM/HR (0-15)
[2024-01-27 13:09] LABS: Alanine Aminotransferase 35 IU/L (<50); Albumin 3.9 g/dL (3.5-5.0); Albumin Globulin Ratio 0.8 (1.0-2.8); Alkaline Phosphatase 57 U/L (38-126); Aspartate Aminotransferase 42 IU/L (17-59); BUN Creatinine Ratio 14.5 (6-22); Bilirubin Total 0.6 mg/dL (0.2-1.3); Blood Urea Nitrogen 16 mg/dL (9-20); C-Reactive Protein Quant < 0.5 mg/dL (<1.0); Calcium 9.4 mg/dL (8.4-10.2); Carbon Dioxide 30 mmol/L (22-32); Chloride 98 mmol/L (98-107); Estimated Glomerular Filt Rate > 60 mL/min (>60); Globulin 4.6 g/dL (1.7-4.1); Glucose 140 mg/dL (80-110); HEMOLYSIS < 15 (0-50); Potassium 4.3 mmol/L (3.4-5.1); Sodium 132 mmol/L (137-145); Total Protein 8.5 g/dL (6.3-8.2)
== END ==
PROVIDERS: Family Provider Family Medicine; PCP Family Medicine; Referring Provider Internal Medicine Rheumatology; Visit Provider Internal Medicine Rheumatology
DX: M05.79 Rheumatoid arthritis with rheumatoid factor of multiple sites without organ or systems involvement (principal); Z79.899 Other long term (current) drug therapy
CPT/HCPCS: 36415; 80053; 85025; 85651; 86140

== ENCOUNTER → 2024-02-12 11:25 | Outpatient (CLI) | payer MEDICARE, SELFPAY ==
[2019-09-02 12:00] VITALS: BMI 23.4
[2024-02-12 12:34] LABS: Add Manual Diff / Slide Review NO; Basophils Absolute Auto 0 /uL (0-100); Basophils Percent Auto 0.5 % (0-2); Eosinophils Absolute Auto 100 /uL (0-450); Eosinophils Percent Auto 2.1 % (2-4); Hematocrit 36.8 % (41-53); Hemoglobin 12.8 g/dL (13.5-17.5); Lymphocytes Absolute Auto 1000 /uL (1100-4500); Lymphocytes Percent Auto 20.2 % (25-40); Mean Corpuscular HGB Conc 34.7 % (30-36); Mean Corpuscular Hemoglobin 32.4 PG (26-34); Mean Corpuscular Volume 93.4 fL (80-100); Monocytes Absolute Auto 500 /uL (0-900); Monocytes Percent Auto 11.4 % (3-14); Neutrophils Absolute Auto 3100 /uL (1500-7000); Neutrophils Percent Auto 65.8 % (50-75); Platelet Count 159 X10^3/uL (150-400); Red Blood Cell Count 3.94 X10^6/uL (4.5-5.9); Red Cell Distribution Width 15.6 % (11.6-14.8); White Blood Cell Count 4.8 X10^3/uL (4.5-11.0)
[2024-02-12 12:41] LABS: Hemoglobin A1C% w Est Avg Glu 6.2 % (4.0-6.0)
[2024-02-12 13:34] LABS: Creatinine Urine Random 176.7 mg/dL
[2024-02-12 13:37] LABS: Microalbumi Creatinin Ratio Ur 10.7 ug/mg CR (<30); Microalbumin Urine Random 1.9 mg/dL (0-1.6)
[2024-02-13 12:17] LABS: HEMOLYSIS < 15 (0-50); Iron 107 ug/dL (49-181)
[2024-02-13 12:27] LABS: Percent Iron Saturation 35 % (20-50); Total Iron Binding Capacity 302 ug/dL (261-462); Transferrin 228 mg/dL (206-381)
[2024-02-13 12:37] LABS: Ferritin 65 ng/mL (18-464)
[2024-02-13 13:07] LABS: Vitamin B12 981 pg/mL (239-931)
[2024-02-14 11:01] LABS: TSH w/ Reflex to FT4 0.56 uIU/mL (0.47-4.68)
== END ==
PROVIDERS: Family Provider Family Medicine; PCP Family Medicine; Referring Provider Physician Assistant; Visit Provider Physician Assistant
DX: E11.59 Type 2 diabetes mellitus with other circulatory complications (principal); Z79.4 Long term (current) use of insulin; E78.5 Hyperlipidemia, unspecified; D68.9 Coagulation defect, unspecified; I10 Essential (primary) hypertension; M06.9 Rheumatoid arthritis, unspecified; D72.819 Decreased white blood cell count, unspecified; D64.9 Anemia, unspecified; I69.359 Hemiplegia and hemiparesis following cerebral infarction affecting unspecified side
CPT/HCPCS: 36415; 82043; 82570; 82607; 82728; 83036; 83540; 83550; 84443; 85025

== ENCOUNTER → 2024-03-13 12:50 | Outpatient (CLI) | payer MEDICARE, SELFPAY ==
[2019-09-02 12:00] VITALS: BMI 23.4
--- NOTE | 2024-04-07 10:00 | DIAB.MNTFU ---
Addendum entered by Maria T Little 04/07/24 10:21: Follow-up scheduled for May for BG review. Original Note: Follow-up Diabetes Medical Nutrition Therapy Assessment Name: Sukh Colvin Date: 03/13/24 Time: 105-2p Dx: Type II Diabetes Sukh presents for DM follow-up. Last visit April 2023. Accompanied by , Felicity. Questions today regarding concern for BG variations, hypoglycemia, and nutrition therapy for low appetite. Last hgA1c of 6.2% brings some concerns for potential lows, though CGM TIR indicates none in the last 14 days. Felicity notes some changes from 98mg/dl to 300mg/dl after eating eggs, veggies, toast without prandial insulin. THen uses correction of 4u and has BG of 150-200s without lows. Does not always give prandial for fear of lows and such reported unpredictable BG. Lower appetite in later half of day. Has reported h/o lows when skipping meals. Reports pre bed goal of 120-130mg/dl. Does not like greens or salad much. Felicity would like to increase veg intake. Diet recall: 8a: toast or eng muffin with eggs +/- berries or half banana 12p: sandwich 1/2 2p: other 1/2 sandwich or 2 small bags of pirate botty 5-6p: 2c soup or 1/2c pasta with ro and broccoli sn: dessert or pirates booty (BG driven) Anthropometrics: Ht: 68 Wt: 169.5# Self-Monitoring Blood Glucose: Variations under goal of 36% or less. Is having more consistent hyperglycemia in the low 180-200s postprandially. May benefit from more regular prandial insulin at low dose, however they do seem to worry quite a bit about lows and recent HgA1c in goal and time in range in goal >75%. Reports when low treats with tabs or juice. Worries for extreme lows. Had to call EMS once with bg <50mg/dl. TIR: <1% very high 17% high 82in range 0% low Avmg/dl GMI 6.9% variations: 24.1% Diabetes Medications: 18u Glargine AM 0-2u Aspart (SSI)-- up to 4-5u prn 1000mg Metformin BID Pertinent Labs: HgA1c: 6.9% 01/2023 6.2% 02/2024 Past Medical History: (Last Reviewed 03/14/24 @ 10:18 by Annemarie Weems DO) Acute hyponatremia Antiphospholipid antibody syndrome Aphasia following cerebrovascular disease (01/27/15) CAD (coronary artery disease) Cardiac arrhythmia Cerebrovascular accident (CVA) involving left middle cerebral artery territory (09/01/15) Chronic atrial flutter (09/01/15) Chronic systolic congestive heart failure (09/01/15) Controlled insulin dependent diabetes mellitus Coronary artery disease involving [place] coronary artery of [place] heart without angina pectoris (09/01/15) CVA (cerebral vascular accident) Diabetes mellitus DVT (deep venous thrombosis) Essential hypertension (09/01/15) Facial laceration Hemiparesis affecting dominant side as late effect of cerebrovascular accident (01/27/15) History of stroke with residual deficit Right-sided neurological deficits Hyperglycemia Hyperlipidemia (09/01/15) Hyperlipidemia Myocardial infarction Pacemaker Rheumatoid arthritis Stenosis of left carotid artery (12/22/13) Systolic heart failure Type 2 diabetes mellitus Weakness Nutrition Rx: Carbohydrates: Meal: 30-45g Snack:15-30g Nutrition Diagnosis: Food and nutrition knowledge deficit r/t limited MNT aeb report of needing more ideas for limited appetite Intervention: This participant was very receptive. Provided appropriate educational handouts. Discussed the following topics: Blood sugar review and trends. Insulin action Potential for glucagon as hypo precaution Ideas for limited appetite, including shakes/smoothies Created SMART goals for patient self-care and success. 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
== END ==
PROVIDERS: Family Provider Family Medicine; PCP Family Medicine; Referring Provider Family Medicine
DX: E11.59 Type 2 diabetes mellitus with other circulatory complications (principal); Z79.4 Long term (current) use of insulin; Z68.23 Body mass index [BMI] 23.0-23.9, adult
CPT/HCPCS: 97803

== ENCOUNTER 2024-03-14 10:06 | Emergency (ER) | payer MEDICARE, SELFPAY ==
[2019-09-02 12:00] VITALS: BMI 23.4
[2024-03-14 10:13] VITALS: BP 141/84; PULSE 85; PULSE 88; RESP 15; RESP 16; TEMP 36.3; O2SAT 98; O2SAT 99
[2024-03-14 10:14] VITALS: BP 141/84; PULSE 86; RESP 18; O2SAT 98
--- NOTE | 2024-03-14 10:16 | ED_ITS ---
HPI - General Adult General Chief complaint: Skin/Abscess/Foreign Body Stated complaint: something stuck in throat Time Seen by Provider: 03/14/24 10:15 Source: patient, EMS, RN notes reviewed and old records reviewed Mode of arrival: EMS Limitations: physical limitation (nonverbal/aphasia) History of Present Illness HPI narrative: 68-year-old male with history of CVA with right-sided deficits, chronic aphasia, swallowing difficulties, pacemaker, coronary artery disease, diabetes and prior DVT who presents with concern for esophageal food bolus. Patient has had similar issues in the past. He was eating breakfast today got something stuck was able to sort of cough it out but per EMS they individuals with the patient were not sure if he had gotten it all out. He did not have any syncope. He has not had any difficulty with secretions or saliva here. He is alert able to answer questions with yes no but is nonverbal at baseline. Patient is unsure if there is anything still stuck. He does not have any pain in his chest no complaints of shortness of breath, does not feel like he needs to vomit. Does not indicate this is similar to prior episodes. Patient has otherwise been well-appearing with a appropriate vitals for EMS. Related Data Home Medications Medication Instructions Recorded Confirmed multivitamin with minerals 1 tab PO DAILY ##0 06/22/19 01/16/23 lactobacillus combination no.9 4 4,000 mmu cells PO DAILY 03/25/23 03/25/23 billion cell capsule (Adult 50 Plus Probiotic) vitamin B complex (B 1 tab PO DAILY 03/25/23 03/25/23 Complex-Vitamin B12 tablet) Previous Rx's Medication Instructions Recorded Disabled Parking Permit #1 ea 05/25/19 tamsulosin 0.4 mg capsule 0.4 mg PO QPM #90 caps 07/20/19 ketoconazole 2 % topical cream 1 applic topical BID #60 grams 03/09/21 triamcinolone acetonide 0.1 % 1 applic topical BID #80 grams 03/09/21 topical cream nystatin 100,000 unit/gram topical 1 applic topical BID #60 grams 04/04/21 powder insulin syringe-needle U-100 0.3 #100 ea 01/08/22 mL 31 gauge x 5/16 (BD Insulin Syringe Ultra-Fine) cholecalciferol (vitamin D3) 125 125 mcg PO DAILY #90 caps 03/25/23 mcg (5,000 unit) capsule insulin glargine 100 unit/mL (3 See Rx Instructions .Route 04/19/23 mL) subcutaneous pen (Basaglar .COMPLEX #15 mL KwikPen U-100 Insulin) metformin 1,000 mg tablet See Rx Instructions .Route 04/25/23 .COMPLEX #60 tabs folic acid 1 mg tablet See Rx Instructions .Route 04/29/23 .COMPLEX #90 tabs carvedilol 6.25 mg tablet See Rx Instructions .Route 06/24/23 .COMPLEX #180 tabs pen needle, diabetic 32 gauge x #150 ea 07/01/2301/17 (Droplet Pen Needle) atorvastatin 20 mg tablet 20 mg PO ONCE PM #90 tabs 07/04/23 dabigatran etexilate 150 mg capsule 150 mg PO BID #60 caps 07/29/23 etanercept 50 mg/mL (1 mL) 50 mg SUBCUT QWEEK #3.92 mL 09/02/23 subcutaneous pen injector methotrexate sodium 2.5 mg tablet 20 mg (8 x 2.5 mg) PO QWEEK #12 09/30/23 tabs blood-glucose meter,continuous #1 ea 10/01/23 (Dexcom G6 Absorption Operator) blood-glucose sensor (Dexcom G6 #3 ea 10/08/23 Sensor device) blood-glucose transmitter (Dexcom #1 ea 10/08/23 G6 Transmitter device) insulin aspart U-100 100 unit/mL See Rx Instructions .Route 11/13/23 subcutaneous solution (Novolog .COMPLEX #10 mL U-100 Insulin aspart) lisinopril 10 mg tablet 10 mg PO DAILY #90 tabs 11/18/23 sertraline 50 mg tablet 100 mg (2 x 50 mg) PO DAILY #180 11/18/23 tabs doxycycline hyclate 100 mg tablet 100 mg PO BID #20 tabs 03/14/24 Allergies Allergy/AdvReac Type Severity Reaction Status Date / Time polyethylene glycol 3350 Allergy Intermediate HIVES Verified 03/14/24 10:17 [From Miralax] amoxicillin Allergy Mild RASH Verified 03/14/24 10:17 erythromycin base Allergy Mild RASH Verified 03/14/24 10:17 famotidine Allergy Mild RASH Verified 03/14/24 10:17 niacin Allergy Mild RASH Verified 03/14/24 10:17 codeine AdvReac Mild NAUSEA Verified 03/14/24 10:17 Review of Systems Review of Systems ROS Unobtainable: All systems reviewed & are unremarkable except as noted in HPI and below Patient History Medical History Hyperglycemia Controlled insulin dependent diabetes mellitus CVA (cerebral vascular accident) Facial laceration Weakness Acute hyponatremia Rheumatoid arthritis History of stroke with residual deficit Diabetes mellitus Hyperlipidemia Antiphospholipid antibody syndrome Pacemaker Myocardial infarction Systolic heart failure DVT (deep venous thrombosis) CAD (coronary artery disease) Cardiac arrhythmia Chronic systolic congestive heart failure (09/01/15) Hyperlipidemia (09/01/15) Essential hypertension (09/01/15) Coronary artery disease involving [place] coronary artery of [place] heart without angina pectoris (09/01/15) Cerebrovascular accident (CVA) involving left middle cerebral artery territory (09/01/15) Chronic atrial flutter (09/01/15) Hemiparesis affecting dominant side as late effect of cerebrovascular accident (01/27/15) Aphasia following cerebrovascular disease (01/27/15) Stenosis of left carotid artery (12/22/13) Type 2 diabetes mellitus Surgical History AICD (automatic cardioverter/defibrillator) present History of angioplasty Presence of cardiac pacemaker Social History marital status: household members: spouse and caregiver Smoking Status: Never smoker alcohol intake: never substance use type: does not use Smoking Status: Never smoker alcohol intake frequency: 0-2 drinks per day Substance Use Type: does not use Exam Narrative Exam Narrative: GEN: well nourished, well appearing male, alert and oriented, patient appears to be in mild distress. HEENT: Atraumatic, pupils are equal round reactive to light, extraocular movements are intact, nares are clear, there is no conjunctival pallor. Throat is clear without any exudates, erythema, tonsillar enlargement or uvular deviation, swallowing secretions without issue. HEART: Regular rate and rhythm without murmur, clicks, rubs. LUNGS:Lungs clear to auscultation, no wheezes, rales, crackles, chest moves symmetrically, no tachypnea or accessory muscle use. No cough or respiratory distress on exam. ABD:bowel sounds normal, soft, non-tender, no guarding, rebound, rigidity, no masses noted, no hepatosplenomegaly MSCL: Non-tender, no muscle atrophy, right sided weakness, missing some of digits on left hand. NEURO:CN 2-12 intact, sensation normal. Initial Vital Signs Initial Vital Signs: Vital Signs Temperature 97.4 F L 03/14/24 10:13 Pulse Rate 85 03/14/24 10:13 Respiratory Rate 15 03/14/24 10:13 Blood Pressure 141/84 H 03/14/24 10:13 Pulse Oximetry 98 03/14/24 10:13 Oxygen Delivery Method Room Air 03/14/24 10:13 Course Orders Ordered: ED Orders 03/14/24 10:15 Chest [XR chest 1V] Stat Discontinued Medications Glucagon (Glucagon,Human Recombinant 1 Mg/Ml Vial) 1 mg IV NOW ONE Stop: 03/14/24 10:16 Last Admin: 03/14/24 10:31 Dose: 1 mg Documented By: ANTHONY Vital Signs Vital signs: Vital Signs - 8 hr 03/14/24 11:30 03/14/24 11:30 Pulse Rate 77 Respiratory Rate 15 Blood Pressure 122/79 Pulse Oximetry 98 Medical Decision Making Imaging Data Chest x-ray: Radiologist's Impression: [address] [address] XRay Report Signed Patient: Sukh Colvin MR#: [id number] : 1955 Acct:[id number] Age/Sex: 68 / M Date of Service: 03/14/24 Loc: ED Accession Number: [id number] Procedure: XR chest 1V Ordering Provider: Annemarie Weems D.O. PROCEDURE: XR CHEST 1V INDICATIONS: eval for aspiration TECHNIQUE: One view of the chest was acquired. COMPARISON: [facility], , XR CHEST 1V, 06/22/2019, 9:36. FINDINGS: Surgical changes and devices: Left-sided pacemaker/defibrillator in good position Lungs and pleura: Lungs are clear. No pleural effusions or pneumothorax. Mediastinum: Cardiomegaly. Bibasilar platelike atelectasis and or infiltrate. Obscuration left hemidiaphragm. Bones and chest wall: No suspicious bony lesions. Overlying soft tissues appear unremarkable. IMPRESSION: Cardiomegaly, left pleural effusion with bibasilar atelectasis and infiltrate accentuated by low lung volumes Approved by: Kike Lindquist M.D. on 03/14/2024 at 10:20 MDM Narrative Medical decision making narrative: 68-year-old male with history of swallowing difficulties was eating breakfast and appeared to have possible esophageal food bolus he was able to cough it out per EMS. No respiratory distress, he is swallowing secretions here easily. We will obtain chest x-ray to evaluate for any aspiration component. Patient is unsure if they are still any. Given a dose of IV glucagon and patient was able to drink clear soda without issue. Patient appears to have cleared food bolus. Chest xray shows cardiomegaly, left pleural effusion bibasilar atelectasis and infiltrate accentuated by low volumes. Patient has not had any other significant changes vitals, he is otherwise well- appearing. Likely cleared his esophageal food bolus. There maybe a component of aspiration has was given a prescription for antibiotic. Discharge Plan Departure Patient Disposition: Home Clinical Impression: Dysphagia, Pleural effusion Activity Restrictions/Additional Instructions: I hope you continue to feel improved. Your chest x-ray shows cardiomegaly and a left pleural effusion little bit of infiltrate. Prescription for potential pneumonia was included. Prescription sent to [facility] in [place]. Please return if you have new or worsening symptoms, new chest pain or shortness of breath, lightheadedness or passing out, persistent vomiting, inability to swallow secretions or other new or concerning changes. Prescriptions: New doxycycline hyclate 100 mg tablet 100 mg PO BID Qty: 20 0RF No Action nystatin 100,000 unit/gram powder 1 applic topical BID Qty: 60 1RF cholecalciferol (vitamin D3) 125 mcg (5,000 unit) capsule 125 mcg PO DAILY Qty: 90 0RF vitamin B complex [B Complex-Vitamin B12] Tablet 1 tab PO DAILY Adult 50 Plus Probiotic 4 billion cell capsule 4,000 mmu cells PO DAILY Rx Instructions: administer with a meal (DME) Disabled Parking Permit 0 .ROUTE .MEDSUPPLY Qty: 1 0RF Rx Instructions: I find this person to be disabled tamsulosin 0.4 mg capsule 0.4 mg PO QPM Qty: 90 3RF ketoconazole 2 % cream 1 applic topical BID Qty: 60 0RF triamcinolone acetonide 0.1 % cream 1 applic topical BID Qty: 80 0RF (DME) insulin syringe-needle U-100 [BD Insulin Syringe Ultra-Fine] 0.3 mL 31 gauge x 5/16 syringe See Rx Instructions .ROUTE .MEDSUPPLY Qty: 100 11RF Rx Instructions: As directed up to 5 times daily for insulin injections Jaiden Maciel U-100 Insulin 100 unit/mL (3 mL) insulin pen See Rx Instructions .ROUTE .COMPLEX Qty: 15 2RF Dose Instruction: Inject 18 units subcutaneously as needed daily in the morning for blood sugar control. Rx Instructions: Inject 18 units subcutaneously as needed daily in the morning for blood sugar control. metformin 1,000 mg tablet See Rx Instructions .ROUTE .COMPLEX Qty: 60 11RF Dose Instruction: TAKE ONE TABLET BY MOUTH TWICE DAILY WITH FOOD Rx Instructions: TAKE ONE TABLET BY MOUTH TWICE DAILY WITH FOOD folic acid 1 mg tablet See Rx Instructions .ROUTE .COMPLEX Qty: 90 3RF Dose Instruction: TAKE ONE TABLET BY MOUTH ONE TIME DAILY Rx Instructions: TAKE ONE TABLET BY MOUTH ONE TIME DAILY carvedilol 6.25 mg tablet See Rx Instructions .ROUTE .COMPLEX Qty: 180 1RF Dose Instruction: TAKE ONE TABLET BY MOUTH TWICE DAILY Rx Instructions: TAKE ONE TABLET BY MOUTH TWICE DAILY (DME) pen needle, diabetic [Droplet Pen Needle] 32 gauge x 3/16 needle See Rx Instructions .ROUTE .COMPLEX Qty: 150 11RF Dose Instruction: USE DIRECTED UP TO 5 TIMES DAILY Rx Instructions: USE DIRECTED UP TO 5 TIMES DAILY atorvastatin 20 mg tablet 20 mg PO ONCE PM Qty: 90 3RF dabigatran etexilate 150 mg capsule 150 mg PO BID Qty: 60 5RF etanercept 50 mg/mL (1 mL) pen injector 50 mg SUBCUT QWEEK Qty: 3.92 11RF Rx Instructions: mondays Auth approved. See scans 12/31/19 (DME) Dexcom G6 Sensor Device See Rx Instructions .Route Qty: 3 11RF Rx Instructions: use to check blood sugar daily as directed (DME) Dexcom G6 Transmitter Device See Rx Instructions .Route Qty: 1 11RF Rx Instructions: Use to test blood sugar daily as directed insulin aspart U-100 [Novolog U-100 Insulin aspart] 100 unit/mL solution See Rx Instructions .ROUTE .COMPLEX MDD 30U Qty: 10 3RF Dose Instruction: INJECT SUBCUTANEOUSLY UP TO THREE TIMES DAILY USING SLIDING SCALE. 150-200 1 U;200-250 2 U;250-300 3 U;300-350 4 U;350-400 5 U. Rx Instructions: INJECT SUBCUTANEOUSLY UP TO THREE TIMES DAILY USING SLIDING SCALE. 150-200 1 U;200-250 2 U;250-300 3 U;300-350 4 U;350-400 5 U. lisinopril 10 mg tablet 10 mg PO DAILY Qty: 90 3RF sertraline 50 mg tablet 100 mg PO DAILY Qty: 180 3RF methotrexate sodium 2.5 mg tablet 20 mg PO QWEEK Qty: 12 11RF Rx Instructions: tuesdays (DME) Dexcom G6 Absorption Operator Misc See Rx Instructions .Route Qty: 1 0RF Rx Instructions: As directed multivitamin with minerals Tablet 1 tab PO DAILY Qty: 0 Referrals: Delfino Epstein MD [Primary Care Provider] - Stand Alone Forms: Patient Portal/API
[2024-03-14 10:30] VITALS: BP 130/79; PULSE 81; RESP 18; O2SAT 97
[2024-03-14] MEDS: GLUCAGON,HUMAN RECOMBINANT 1 MG/ML VIAL IV (10:31)
[2024-03-14 10:57] VITALS: BP 139/81; PULSE 82; RESP 18; O2SAT 98
[2024-03-14 11:00] VITALS: BP 140/80; PULSE 78; RESP 16; O2SAT 97
--- NOTE | 2024-03-14 11:16 | PC.NURSE ---
Pt has some swallowing difficulty due to hx of neuro disorder. Pt had something stuck in throat after eating breakfast this morning. Reported that pt was able to cough some of food up, but family is concerned that not all came out. Pt is a&ox4. No respiratory distress or drooling.
[2024-03-14 11:30] VITALS: BP 122/79; PULSE 77; RESP 15; O2SAT 98
== END 2024-03-14 12:13 | disposition home or self-care (01) ==
PROVIDERS: Emergency Provider Emergency Medicine; Family Provider Family Medicine; PCP Family Medicine
DX: R09.A2 Foreign body sensation, throat (principal); R13.10 Dysphagia, unspecified; J90 Pleural effusion, not elsewhere classified
CPT/HCPCS: 71045; 96374; 99283; J1610

== ENCOUNTER → 2024-04-01 10:20 | Outpatient (CLI) | payer MEDICARE, SELFPAY ==
[2019-09-02 12:00] VITALS: BMI 23.4
--- NOTE | 2024-04-01 10:21 | DI.RAD.S_ITS ---
PROCEDURE: XR CHEST 2V INDICATIONS: 2 week f/u pleural effusion TECHNIQUE: 2 views of the chest were acquired. COMPARISON: [facility], CR, XR CHEST 1V, 03/14/2024, 10:27. FINDINGS: Surgical changes and devices: Left pacemaker/AICD. Lungs and pleura: Bibasilar hazy opacity. No pleural effusions or pneumothorax. Mediastinum: Mediastinal contours are unchanged. Heart size is within normal limits. Bones and chest wall: No suspicious bony abnormalities. Soft tissues appear unremarkable. IMPRESSION: Bibasilar hazy opacity, not significantly changed. This could represent atelectasis and/or pulmonary edema. Dictated by: Daquan Christiansen M.D. on 04/01/2024 at 12:15 Approved by: Daquan Christiansen M.D. on 04/01/2024 at 12:17
== END ==
PROVIDERS: Family Provider Family Medicine; PCP Family Medicine; Referring Provider Physician Assistant; Visit Provider Physician Assistant
DX: J90 Pleural effusion, not elsewhere classified (principal); Z95.810 Presence of automatic (implantable) cardiac defibrillator
CPT/HCPCS: 71046

== ENCOUNTER → 2024-04-23 07:59 | Outpatient (CLI) | payer MEDICARE, SELFPAY ==
[2019-09-02 12:00] VITALS: BMI 23.4
[2024-04-23 09:08] LABS: Add Manual Diff / Slide Review NO; Basophils Absolute Auto 0 /uL (0-100); Basophils Percent Auto 0.6 % (0-2); Eosinophils Absolute Auto 100 /uL (0-450); Eosinophils Percent Auto 2.3 % (2-4); Hemoglobin 12.8 g/dL (13.5-17.5); Lymphocytes Absolute Auto 700 /uL (1100-4500); Lymphocytes Percent Auto 19.8 % (25-40); Mean Corpuscular HGB Conc 34.6 % (30-36); Mean Corpuscular Hemoglobin 32.6 PG (26-34); Mean Corpuscular Volume 94.3 fL (80-100); Monocytes Absolute Auto 700 /uL (0-900); Monocytes Percent Auto 18.1 % (3-14); Neutrophils Absolute Auto 2200 /uL (1500-7000); Neutrophils Percent Auto 59.2 % (50-75); Platelet Count 168 X10^3/uL (150-400); Red Blood Cell Count 3.93 X10^6/uL (4.5-5.9); Red Cell Distribution Width 16.3 % (11.6-14.8); White Blood Cell Count 3.8 X10^3/uL (4.5-11.0)
[2024-04-23 09:24] LABS: Alanine Aminotransferase 41 IU/L (<50); Albumin 3.8 g/dL (3.5-5.0); Albumin Globulin Ratio 0.8 (1.0-2.8); Alkaline Phosphatase 60 U/L (38-126); Aspartate Aminotransferase 44 IU/L (17-59); BUN Creatinine Ratio 13.5 (6-22); Bilirubin Total 0.6 mg/dL (0.2-1.3); Blood Urea Nitrogen 14 mg/dL (9-20); C-Reactive Protein Quant < 0.5 mg/dL (<1.0); Carbon Dioxide 25 mmol/L (22-32); Chloride 101 mmol/L (98-107); Estimated Glomerular Filt Rate > 60 mL/min (>60); Globulin 4.5 g/dL (1.7-4.1); Glucose 133 mg/dL (80-110); HEMOLYSIS < 15 (0-50); Potassium 4.5 mmol/L (3.4-5.1); Sodium 132 mmol/L (137-145); Total Protein 8.3 g/dL (6.3-8.2)
[2024-04-23 11:48] LABS: Erythrocyte Sedimentation Rate 23 MM/HR (0-15)
== END ==
LOC: LAB 08:00
PROVIDERS: Family Provider Family Medicine; PCP Family Medicine; Referring Provider Internal Medicine Rheumatology; Visit Provider Internal Medicine Rheumatology
DX: M05.79 Rheumatoid arthritis with rheumatoid factor of multiple sites without organ or systems involvement (principal); Z79.899 Other long term (current) drug therapy
CPT/HCPCS: 36415; 80053; 85025; 85651; 86140

== ENCOUNTER 2024-04-28 11:15 | Outpatient (RCR) | payer MEDICARE, SELFPAY ==
[2019-09-02 12:00] VITALS: BMI 23.4
--- NOTE | 2023-12-23 12:11 | OT.OP.EVAL ---
Visit Care Team Role Provider Type Delfino Epstein MD Attending Provider Physician Family Provider Primary Care Provider Referring Provider Specialty: Family Practice Address: [address] [place] [address], [address], [place], [address] Email: [email or web address] Occupational Therapy Initial Evaluation OT Outpatient Adult Evaluation Start: 12/23/23 11:21 Freq: Status: Active Protocol: Document 12/23/23 11:21 AMS (Rec: 12/23/23 12:11 AMS [id number]) General Information - Adult Plan of Care Dates 12/23/23 - 02/03/24 Insurance Information [facility]; *No limits PCY Visit Start Time 10:30 Visit Stop Time 11:13 Treatment Setting Outpatient Care Note Type Initial Evaluation Identification Confirmed Yes Identification Confirmed By du Blevins Goals Treatment Attention. Active incorporation of R UE. Care Home Goals 1. Sukh will be modified independent with execution of home exercise program with the support of his family and caregivers utilizing written and visual instructions as needed. 2. Sukh will be demonstrating increased attention to the R UE; this will be evidenced by Sukh's indication/family's report that he is actively incorporating and/or attending to the R UE in 2-3 different tasks/activities in the home environment (e.g., bimanual coordination, positioning of R UE on arm rest). Assessment/Plan Treatment Assessment Sukh is 68 years of age and was referred to outpatient OT secondary to CVA. PMH: Significant for antiphospholipid antibody syndrome; aphasia; CAD; cardiac arrhythmia; CVA involvign L MCA territory ; chronic atrial flutter; chronic systolic CHF; CAD; DM ; DVT; essential HTN; hyperlipidemia; [place]; pacemaker; RA; stenosis of left carotid artery; systolic heart failure . No recent falls reported, although, did roll out of bed on 2 occasions w/ need for assist from Adelfo w/ fall recovery. Sukh was accompanied by his Felicity and Svetlana who assists with Sukh's care. Sukh ambulated to treatment session w/ quad cane; Felicity reports that he has a standard w/c w/ R randa arm rest/table that they received post- rehab facility stay. She would like to consider getting Sukh an electic w/c to support his independence within the community. He is actively doffing UB clothing, including unbuttoning. No complaints/ reports of pain/discomfort with dressing or bathing. There is a concern for R sided neglect; although, good active incorporation and grasping/releasing the golf club requiring no assistance on this date (w/ no cueing). Sukh also shakes his brother 's hand w/ R. Sukh does not wear g/h subluxation sling and /or UE splint/brace. (+) noted neglect of R UE. -47 degrees active R elbow ext; 13 degrees active R elbow flex; 25 degrees active R sh flex; 5 degrees active R sh ext; 10 degrees active R sh abd. Able to passively extend MP, PIP, and DIPJ of digits 2-5 to neutral. Outpatient OT to address attention to R UE, as well as revisit R UE home exercise program. Length of treatment (weeks) 6 Plan of Care Start Date 12/23/23 Plan of Care End Date 02/03/24 Treatment Frequency Once a Week Therapeutic Contents Active Range of Motion, Adaptive Equipment Education, Functional Activities,Home Exercise Program,Joint Protection,Manual Therapy, Education,Neurodevelopment Treatment,Neuromuscular Re- Education,Self-Care,Stretching /Flexibility Activities, Therapeutic Activities, Therapeutic Exercises, Modalities Additional Types of Modalities Heat/Ice
--- NOTE | 2023-12-30 12:06 | OT.OP.TRT ---
Visit Care Team Role Provider Type Delfino Epstein MD Attending Provider Physician Family Provider Primary Care Provider Referring Provider Specialty: Family Practice Address: [address] [place] [address], [address], [place], [address] Email: [email or web address] Occupational Therapy Treatment Note OT Outpatient Treatment Note - Adult Start: 12/23/23 11:21 Freq: Status: Active Protocol: Document 12/30/23 11:50 AMS (Rec: 12/30/23 12:06 AMS [id number]) OT Outpatient Adult Treatment Note Session Time Visit Start Time 10:30 Visit Stop Time 11:12 Visit Information Visit Number 12/14 Plan of Care Dates 12/23/23 - 02/03/24 Insurance Information [facility] Treatment Setting Outpatient Care Visit Type Note Type Treatment Note General Information General Information Sukh is 68 years of age and was referred to outpatient OT secondary to CVA. PMH: Significant for antiphospholipid antibody syndrome; aphasia; CAD; cardiac arrhythmia; CVA involvign L MCA territory ; chronic atrial flutter; chronic systolic CHF; CAD; DM ; DVT; essential HTN; hyperlipidemia; [place]; pacemaker; RA; stenosis of left carotid artery; systolic heart failure . - Subjective Observations Sukh was seen 1:1 for OT treatment session. No new concerns were indicated. - Objective Objective Measurements Please refer to below for progress towards meeting established OT goals. 04/03/23 = Able to copy his first name utilizing writing utensil positioned in the L hand; copying took increased time and there was some ' shakiness' observed in curves and lines, however, he sequenced letters appropriately and name had good letter spacing and sizing and was legible. Sukh was also able to connect numbers ( 1-10) in order without errors and without support from clinician. 05/16/20= avg 8.0 pounds of force w/ R air route traffic controller dynamometer II testing. Alf Goals 1. Sukh will be modified independent with execution of home exercise program with the support of his family and caregivers utilizing written and visual instructions as needed. 2. Sukh will be demonstrating increased attention to the R UE; this will be evidenced by Sukh's indication/family's report that he is actively incorporating and/or attending to the R UE in 2-3 different tasks/activities in the home environment (e.g., bimanual coordination, positioning of R UE on arm rest). - Treatment 3 Descriptor Functional problem solving activities. Bimanual coordination. Attention to the affected UE. Replication of PVC pattern x 1 . 2 Descriptor Tone Management. Positioning of the R hand on the TT w/ fingers in extended position, w/ slight wrist flex w/ use of weighted spherical ball. Use of handles in standing at TT; handles positioned horizontally. Weight shift L < -> R 3 x 10. Forwards <-> backwards 1 x 10. Exercises 10 Descriptor Rowing machine Side Both Body Position Sitting Resistance level 1 Time 4 min w/ RB Modifications Required Yes Complexity No Change 9 Descriptor R UE strengthening. 3# DB on towel. B sh flex towel. 1 x 10. B Sh hor add/abd. 1 x 10. B Sh abd. 1 x 10. R sh ext. 1 x 10. Scapular row. 1 x 10. 8 Descriptor ROM Measurements. 7 Descriptor Elbow ext. TB #3 (modified place and hold x 3 sec w/ TB and muscle tapping to facilitate). 2 x 10. Elbow flex. Muscle tapping to facilitate. 2 x 10. [ End ] 6 Descriptor Sh ROM. Modified resisted (use of TT). TT Sh flex. 3 x 10 AROM. TT Sh ext. 3 x 10 AROM. TT Sh hor abd. 3 x 10 AROM. TT Sh abd. 3 x 10 AROM. TT diagonal. 3 x 10 AROM. 5 Descriptor Wood dowel use of TB#5 for air route traffic controller. Horizontal positioning of dowel. TB#5. 3 x 10. Vertical positioning of dowel. TB#5. 3 x 10. 4 Descriptor Rolled yoga mat. Bilateral sh flexion. 3 x 10. 3 Descriptor Arm pulleys. x 2 min, various directions while seated (elbow flex/ext: R of body, directly in front of body). Able to maintain grasp of handle. Decreased sh flex noted w/ chuy anchor positioned above eye level; increased success w/ anchoring below sh level and focusing on elbow flex/ext. 2 Descriptor Red flex bar. Bending of flex bar 1 x 10; 1 x 5. Min phys assist to support grasp w/ the right hand. 1 Descriptor Scapular pinches Side Both Body Position Sitting Sets 1 Repetitions 10 - Assessment Assessment of Improvement Sukh was seen 1:1 for OT treatment session; ambulated w / quad cane w/ mod independence. Good attn to R UE relative to positioning of elbow on art rest w/ air route traffic controller based exercises utilizing wood dowel. Non-verbal signs of discomfort primarily noted w/ passive wrist ext particularly when attempting to extend digits in addition to wrist ext; no signs of discomfort observed w/ passive range of motion of digits in slightly wrist flexed position. (+) ranging of fingers is being completed given h/o arthritis, tendency into flexed posturing of digits/distal UE, and decreased functional abilities of the UE. Assist w/ positioning of R hand on cane w/ cane in horizontal and/or vertical positions. Inconsistent awareness of digits of R hand today w/ vertical orientation of cane. Overall, good session. Outpatient OT to address attention to R UE, as well as revisit R UE home exercise program. - Plan Therapy Recommendations Continue with Current Program, Advance per Rehabilitation Protocol
--- NOTE | 2024-01-07 15:43 | OT.OP.TRT ---
Visit Care Team Role Provider Type Delfino Epstein MD Attending Provider Physician Family Provider Primary Care Provider Referring Provider Specialty: Family Practice Address: [address] [place] [address], [address], [place], [address] Email: [email or web address] Occupational Therapy Treatment Note OT Outpatient Treatment Note - Adult Start: 12/23/23 11:21 Freq: Status: Active Protocol: Document 01/07/24 15:33 AMS (Rec: 01/07/24 15:43 AMS [id number]) OT Outpatient Adult Treatment Note Session Time Visit Start Time 13:00 Visit Stop Time 13:40 Visit Information Visit Number 01/11 Plan of Care Dates 12/23/23 - 02/03/24 Insurance Information [facility] Treatment Setting Outpatient Care Visit Type Note Type Treatment Note General Information General Information Sukh is 68 years of age and was referred to outpatient OT secondary to CVA. PMH: Significant for antiphospholipid antibody syndrome; aphasia; CAD; cardiac arrhythmia; CVA involvign L MCA territory ; chronic atrial flutter; chronic systolic CHF; CAD; DM ; DVT; essential HTN; hyperlipidemia; [place]; pacemaker; RA; stenosis of left carotid artery; systolic heart failure . - Subjective Observations Sukh was seen 1:1 for OT treatment session. Opened book on clinician's shelf pointing to text boxes and shaking of head and demonstrating other signs indicative of frustration. - Objective Objective Measurements Please refer to below for progress towards meeting established OT goals. 04/03/23 = Able to copy his first name utilizing writing utensil positioned in the L hand; copying took increased time and there was some ' shakiness' observed in curves and lines, however, he sequenced letters appropriately and name had good letter spacing and sizing and was legible. Sukh was also able to connect numbers ( 1-10) in order without errors and without support from clinician. 05/16/20= avg 8.0 pounds of force w/ R fruit grader operator dynamometer II testing. Assembly Hand Goals 1. Sukh will be modified independent with execution of home exercise program with the support of his family and caregivers utilizing written and visual instructions as needed. 2. Sukh will be demonstrating increased attention to the R UE; this will be evidenced by Sukh's indication/family's report that he is actively incorporating and/or attending to the R UE in 2-3 different tasks/activities in the home environment (e.g., bimanual coordination, positioning of R UE on arm rest). - Treatment 5 Descriptor Bimanual activities. 1 Descriptor HEP/POC. was present throughout treatment session; discussed recommendations for home carry-over. Exercises 6 Descriptor Sh ROM. Modified resisted (use of TT). TT Sh flex. 3 x 10 AROM. TT Sh ext. 3 x 10 AROM. TT Sh hor add. 2 x 10 AROM. Use of 3 and 1/2-inch ball in palm of hand. 2 x 10. TT Sh abd. 3 x 10 AROM. TT diagonal. 3 x 10 AROM. 5 Descriptor Laundrette Owner Horizontal positioning of dowel. TB#5. 3 x 10. Vertical positioning of dowel. TB#5. 2 x 10. Maintenance of R handed grasp of flex bar while bending to ' n' w/ contralateral hand. Red flex bar 1 x 5. Yellow flex bar 1 x 10. - Assessment Assessment of Improvement Sukh was seen 1:1 for OT treatment session; ambulated w / quad cane w/ mod independence. Good attn to R UE relative to positioning of elbow on art rest w/ fruit grader operator based exercises utilizing wood dowel. Non-verbal signs of discomfort noted w/ passive wrist ext with fingers in flexed/fisted position, as well as open handed/extension. (+) grasping of dowel and cane w/ R hand without assist from clinician (utilizing contralateral hand). Adjusted R handed grasp without cueing, as needed with bimanual tasks . Transitioned from red --> yellow flex bar based on feedback and limited repetitions w/ red flex bar. Shaking of head and other signs of frustration noted when pointing to text within book (reading). Overall, good session. Min cueing to discourage L handed assist w/ TT exercises; modified exercises and revisited flexbar given increased active incorporation of the L hand in today's session. Outpatient OT to address attention to R UE, as well as revisit R UE home exercise program. - Plan Therapy Recommendations Continue with Current Program, Advance per Rehabilitation Protocol
--- NOTE | 2024-01-13 15:52 | OT.OP.TRT ---
Visit Care Team Role Provider Type Delfino Epstein MD Attending Provider Physician Family Provider Primary Care Provider Referring Provider Specialty: Family Practice Address: [address] [place] [address], [address], [place], [address] Email: [email or web address] Occupational Therapy Treatment Note OT Outpatient Treatment Note - Adult Start: 12/23/23 11:21 Freq: Status: Active Protocol: Document 01/13/24 15:43 AMS (Rec: 01/13/24 15:52 AMS [id number]) OT Outpatient Adult Treatment Note Session Time Visit Start Time 10:30 Visit Stop Time 11:10 Visit Information Visit Number 02/[id number] Plan of Care Dates 12/23/23 - 02/03/24 Insurance Information [facility] Setting Treatment Setting Outpatient Care Visit Type Note Type Treatment Note General Information General Information Sukh is 68 years of age and was referred to outpatient OT secondary to CVA. PMH: Significant for antiphospholipid antibody syndrome; aphasia; CAD; cardiac arrhythmia; CVA involvign L MCA territory ; chronic atrial flutter; chronic systolic CHF; CAD; DM ; DVT; essential HTN; hyperlipidemia; [place]; pacemaker; RA; stenosis of left carotid artery; systolic heart failure . - Subjective Identification Type Name Observations Sukh was seen 1:1 for OT treatment session. (+) ambulation to treatment session w/ quad cane. Intermittently grasped R elbow and demonstrated non verbal signs of discomfort (facial expressions). - Objective Objective Measurements Please refer to below for progress towards meeting established OT goals. 04/03/23 = Able to copy his first name utilizing writing utensil positioned in the L hand; copying took increased time and there was some ' shakiness' observed in curves and lines, however, he sequenced letters appropriately and name had good letter spacing and sizing and was legible. Sukh was also able to connect numbers ( 1-10) in order without errors and without support from clinician. 05/16/20= avg 8.0 pounds of force w/ R head golf professional dynamometer II testing. Employee Relations Administrator Goals 1. Sukh will be modified independent with execution of home exercise program with the support of his family and caregivers utilizing written and visual instructions as needed. 2. Sukh will be demonstrating increased attention to the R UE; this will be evidenced by Sukh's indication/family's report that he is actively incorporating and/or attending to the R UE in 2-3 different tasks/activities in the home environment (e.g., bimanual coordination, positioning of R UE on arm rest). - Treatment 5 Descriptor Bimanual activities. Exercises 6 Descriptor Sh ROM. Modified resisted (use of TT). TT Sh flex. 3 x 10 AROM. TT Sh ext. 3 x 10 AROM. TT Sh hor add. 2 x 10 AROM. Use of 3 and 1/2-inch ball in palm of hand. 2 x 10. TT Sh abd. 3 x 10 AROM. TT diagonal. 3 x 10 AROM. 5 Descriptor Electric Motor Controls Assembler Horizontal positioning of dowel. TB#5. 3 x 10. Vertical positioning of dowel. TB#5. 2 x 10. Maintenance of R handed grasp of flex bar while bending to ' n' w/ contralateral hand. Red flex bar 1 x 5. Yellow flex bar 1 x 10. - Assessment Assessment of Improvement Sukh was seen 1:1 for OT treatment session; ambulated w / quad cane w/ mod independence. Good attn to R UE relative to positioning of elbow of arm rest and w/ head golf professional based exercises utilizing wood dowel w/ onlycontact guard assist given absence of 5th digit w/ grasp of R hand. Non- verbal signs of discomfort ( facial expressions) and touching/grasping of R elbow noted w/ tendon glides (hook fist) w/ wrist in flex and in particular w/ passive wrist ext (first w/ fist -> then hook fist); no discomfort noted when R 2nd digit passively ranged w/ wrist in flex singularly. Demonstrated good grading of force w/ use of cane/large dowel w/ batting exercise relative to directionality; may want to see if Sukh prefers R handed approach vs L handed approach with this activity. Overall, good session. No cueing to discourage L handed assist w/ TT exercises. Rec revisiting flex bar exercise. Outpatient OT to address attention to R UE, as well as revisit R UE home exercise program. - Plan Therapy Recommendations Continue with Current Program, Advance per Rehabilitation Protocol
--- NOTE | 2024-01-20 14:54 | OT.OP.TRT ---
Visit Care Team Role Provider Type Delfino Epstein MD Attending Provider Physician Family Provider Primary Care Provider Referring Provider Specialty: Family Practice Address: [address] [place] [address], [address], [place], [address] Email: [email or web address] Occupational Therapy Treatment Note OT Outpatient Treatment Note - Adult Start: 12/23/23 11:21 Freq: Status: Active Protocol: Document 01/20/24 14:44 AMS (Rec: 01/20/24 14:52 AMS [id number]) OT Outpatient Adult Treatment Note Session Time Visit Start Time 10:30 Visit Stop Time 11:10 Visit Information Visit Number 03/[id number] Plan of Care Dates 12/23/23 - 02/03/24 Insurance Information [facility] Setting Treatment Setting Outpatient Care Visit Type Note Type Treatment Note General Information General Information Sukh is 68 years of age and was referred to outpatient OT secondary to CVA. PMH: Significant for antiphospholipid antibody syndrome; aphasia; CAD; cardiac arrhythmia; CVA involvign L MCA territory ; chronic atrial flutter; chronic systolic CHF; CAD; DM ; DVT; essential HTN; hyperlipidemia; [place]; pacemaker; RA; stenosis of left carotid artery; systolic heart failure . - Subjective Identification Type Name Observations Sukh was seen 1:1 for OT treatment session. (+) ambulation to treatment session w/ quad cane. - Objective Objective Measurements Please refer to below for progress towards meeting established OT goals. 04/03/23 = Able to copy his first name utilizing writing utensil positioned in the L hand; copying took increased time and there was some ' shakiness' observed in curves and lines, however, he sequenced letters appropriately and name had good letter spacing and sizing and was legible. Sukh was also able to connect numbers ( 1-10) in order without errors and without support from clinician. 05/16/20= avg 8.0 pounds of force w/ R sheet metal smith dynamometer II testing. Care Home Goals 1. Sukh will be modified independent with execution of home exercise program with the support of his family and caregivers utilizing written and visual instructions as needed. 2. Sukh will be demonstrating increased attention to the R UE; this will be evidenced by Sukh's indication/family's report that he is actively incorporating and/or attending to the R UE in 2-3 different tasks/activities in the home environment (e.g., bimanual coordination, positioning of R UE on arm rest). - Treatment 5 Descriptor Bimanual activities. Exercises 6 Descriptor Sh ROM. Modified resisted (use of TT). TT Sh flex. 3 x 10 AROM. TT Sh ext. 3 x 10 AROM. TT Sh hor add. 2 x 10 AROM. Use of 3 and 1/2-inch ball in palm of hand. 2 x 10. TT Sh abd. 3 x 10 AROM. TT diagonal. 3 x 10 AROM. 5 Descriptor Adult Education Manager Horizontal positioning of dowel. TB#5. 2 x 10. Vertical positioning of dowel. TB#5. 2 x 10. Maintenance of R handed grasp of flex bar while bending to ' n' w/ contralateral hand. Yellow flex bar 2 x 10. Twisting of flex bar w/ L hand while R hand maintaining grasp. 1 x 8. - Assessment Assessment of Improvement Sukh was seen 1:1 for OT treatment session; ambulated w / quad cane w/ mod independence. Good attn to R UE relative to positioning of elbow on arm rest/on TT; required contact guard assist given absence of 5th digit w/ grasp of R hand w/ cane positioned horizontally; min phys assist to support grasp of yellow flex bar; w/ grasping of cane w/ batting exercise, stacked R hand below L hand w/ inconsistency of grasp w/ at times only thumb and 2nd finger around cane, as well as stacked R hand on top of L hand w/ 4-5 digits around the cane. When therapist inquired about his grasp Sukh shrugged his shoulders. Non-verbal signs of discomfort (facial expressions) and touching/ grasping of w/ tendon glides ( hook fist) w/ wrist in flex and in particular w/ passive wrist ext (first w/ fist -> then hook fist) and w/ resistance based dowel TB exercises/grasping of red flex bar. Trialed exclusion of L thumb w/ grasping of flex bar w/ L hand to discourage abnormal posturing/hyperext at IPJ. Demonstrated good grading of force w/ use of cane/large dowel w/ batting exercise relative to directionality; may want to see if Sukh prefers R handed approach vs L handed approach with this activity. Overall, good session. No cueing to discourage L handed assist w/ TT exercises. Outpatient OT to address attention to R UE, as well as revisit R UE home exercise program. - Plan Therapy Recommendations Continue with Current Program, Advance per Rehabilitation Protocol
--- NOTE | 2024-01-27 15:05 | OT.OPPN ---
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 (01/27/24) Aphasia following unspecified cerebrovascular disease (01/27/24) Weakness (01/27/24) Persons encountering health services in other specified circumstances (01/27/24) Personal history of transient ischemic attack (TIA), and cerebral infarction without residual deficits (01/27/24) OT Progress Note OT Outpatient Treatment Note - Adult Start: 12/23/23 11:21 Freq: Status: Active Protocol: Document 01/27/24 14:43 AMS (Rec: 01/27/24 15:04 AMS [id number]) OT Outpatient Adult Treatment Note Session Time Visit Start Time 10:30 Visit Stop Time 11:10 Visit Information Visit Number 04/13 Plan of Care Dates 01/27/24 - 03/09/24 Insurance Information [facility] Treatment Setting Outpatient Care Visit Type Note Type Progress Note General Information General Information Sukh is 68 years of age and was referred to outpatient OT secondary to CVA. PMH: Significant for antiphospholipid antibody syndrome; aphasia; CAD; cardiac arrhythmia; CVA involvign L MCA territory ; chronic atrial flutter; chronic systolic CHF; CAD; DM ; DVT; essential HTN; hyperlipidemia; [place]; pacemaker; RA; stenosis of left carotid artery; systolic heart failure . - Subjective Identification Type Name Observations Felicity accompanied Sukh to OT session. Denied any recent falls. (+) ambulation to and from treatment session w/ quad cane w/ mod independence. Patient/Caregiver Compliance with Home Good Exercise Program Comment w/ family and caregiver support - Objective Objective Measurements Please refer to below for progress towards meeting established OT goals. 01/27/24 = 11.0# of force R design director w/ dynamometer II design director strength test. 04/03/23 = Able to copy his first name utilizing writing utensil positioned in the L hand; copying took increased time and there was some ' shakiness' observed in curves and lines, however, he sequenced letters appropriately and name had good letter spacing and sizing and was legible. Sukh was also able to connect numbers ( 1-10) in order without errors and without support from clinician. 05/16/20= avg 8.0 pounds of force w/ R design director dynamometer II testing. Mcfp Goals 1. Sukh will be modified independent with execution of home exercise program with the support of his family and caregivers utilizing written and visual instructions as needed. 2. Sukh will be demonstrating increased attention to the R UE; this will be evidenced by Sukh's indication/family's report that he is actively incorporating and/or attending to the R UE in 2-3 different tasks/activities in the home environment (e.g., bimanual coordination, positioning of R UE on arm rest). - Treatment 5 Descriptor Bimanual activities. Exercises 6 Descriptor Sh ROM. Modified resisted (use of TT). TT Sh flex. 3 x 10 AROM. TT Sh ext. 3 x 10 AROM. TT Sh hor add. 2 x 10 AROM. Use of 3 and 1/2-inch ball in palm of hand. 2 x 10. TT Sh abd. 3 x 10 AROM. TT diagonal. 3 x 10 AROM. 5 Descriptor Sewing Machine Operator Floorperson Horizontal positioning of dowel. TB#5. 2 x 10. Vertical positioning of dowel. TB#5. 2 x 10. Maintenance of R handed grasp of flex bar while bending to ' n' w/ contralateral hand. Yellow flex bar 2 x 10. - Assessment Assessment of Improvement Sukh was accompanied by Felicity to OT treatment session; he denied any falls over the last certification period and has ambulated w/ quad cane to and from treatment session and within clinic w/ mod independence. He cont to do well w/ TT exercises and is attentive to changes within the clinician's treatment room . Intermittently clinician has provided support w/ intiation and/or modifying grasp; however, he has been observed to spontaneously adjust R handed grasp as needed. He has also demonstrated good skill coordinating his hands together w/ hitting 3 and 1/2- inch ball in all directions w/ observed preference for R handed stacking w/ 'batting'. He has demonstrated preference for proximal vs distal to trunk pitches given tone/ discomfort w/ elbow ext. He cont to benefit from passive ranging of the R hand w/ incorporation of passive hook fist for stretching of intrinsics. Continued outpatient OT would be recommended to address attention to R UE, as well as revisit R UE home exercise program. - Plan Therapy Recommendations Continue with Current Program, Advance per Rehabilitation Protocol Comment 6 weeks Frequency of Treatment Once a Week Therapeutic Contents Active Range of Motion, Adaptive Equipment Education, Client Education,Functional Activities,Home Exercise Program,Joint Protection, Manual Therapy,Education, Neurodevelopment Treatment, Neuromuscular Re-Education, Self-Care,Stretching/ Flexibility Activities, Therapeutic Activities, Therapeutic Exercises Additional Types of Modalities Heat/Ice/ If you are in agreement with this Plan of Care, please return a signed and dated copy. I have reviewed this Plan of Care and certify that the skilled therapy services above are required to meet the patient?s needs. Physician Signature Date Printed Name and Credentials Clinical Instructor Signature Printed Name and Credentials
--- NOTE | 2024-02-10 12:22 | OT.OP.TRT ---
Visit Care Team Role Provider Type Delfino Epstein MD Attending Provider Physician Family Provider Primary Care Provider Referring Provider Specialty: Family Practice Address: [address] [place] [address], [address], [place], [address] Email: [email or web address] Occupational Therapy Treatment Note OT Outpatient Treatment Note - Adult Start: 12/23/23 11:21 Freq: Status: Active Protocol: Document 02/10/24 12:17 AMS (Rec: 02/10/24 12:22 AMS [id number]) OT Outpatient Adult Treatment Note Session Time Visit Start Time 10:30 Visit Stop Time 11:10 Visit Information Visit Number 05/13 Plan of Care Dates 01/27/24 - 03/09/24 Insurance Information [facility] Treatment Setting Outpatient Care Visit Type Note Type Treatment Note General Information General Information Sukh is 68 years of age and was referred to outpatient OT secondary to CVA. PMH: Significant for antiphospholipid antibody syndrome; aphasia; CAD; cardiac arrhythmia; CVA involvign L MCA territory ; chronic atrial flutter; chronic systolic CHF; CAD; DM ; DVT; essential HTN; hyperlipidemia; SD; pacemaker; RA; stenosis of left carotid artery; systolic heart failure . - Subjective Identification Type Name Observations Sukh was seen 1:1 for treatment session. No new concerns were indicated. (+) ambulation to and from treatment session w/ quad cane w/ mod independence. Patient/Caregiver Compliance with Home Good Exercise Program Comment w/ family and caregiver support - Objective Objective Measurements Please refer to below for progress towards meeting established OT goals. 01/27/24 = 11.0# of force R logistics research engineer w/ dynamometer II logistics research engineer strength test. 04/03/23 = Able to copy his first name utilizing writing utensil positioned in the L hand; copying took increased time and there was some ' shakiness' observed in curves and lines, however, he sequenced letters appropriately and name had good letter spacing and sizing and was legible. Sukh was also able to connect numbers ( 1-10) in order without errors and without support from clinician. 05/16/20= avg 8.0 pounds of force w/ R logistics research engineer dynamometer II testing. Assisted Goals 1. Sukh will be modified independent with execution of home exercise program with the support of his family and caregivers utilizing written and visual instructions as needed. 2. Sukh will be demonstrating increased attention to the R UE; this will be evidenced by Sukh's indication/family's report that he is actively incorporating and/or attending to the R UE in 2-3 different tasks/activities in the home environment (e.g., bimanual coordination, positioning of R UE on arm rest). - Treatment 5 Descriptor Bimanual activities. Cane w/ beachball. Modified baseball batting ( seated). Exercises 6 Descriptor Sh ROM. Modified resisted (use of TT). TT Sh flex. 3 x 10 AROM. TT Sh ext. 3 x 10 AROM. TT Sh add/abd. 3 x 10 AROM. TT diagonal. 3 x 10 AROM. 5 Descriptor Software Sales Consultant Horizontal positioning of dowel. TB#5. 2 x 10. Vertical positioning of dowel. TB#5. 2 x 10. Maintenance of R handed grasp of flex bar while bending to ' n' w/ contralateral hand. Red flex bar 1 x 13. - Assessment Assessment of Improvement Sukh cont to do well w/ TT towel based range of motion of R UE exercises and is attentive to changes within the clinician's treatment room . He has demonstrated good skill coordination of his hands together w/ hitting 3 and 1/2-inch ball in all directions w/ underhand ' pitched ball' by clinician. Was observed to position right hand inferiorly and superiorly relative to L hand w/ observed self-directed re- positioning of hand above L hand on 1 occasion when losing logistics research engineer. He cont to benefit from passive ranging of the R hand w/ incorporation of passive hook fist for stretching of intrinsics. Continued outpatient OT would be recommended to address attention to R UE, as well as revisit R UE home exercise program. - Plan Therapy Recommendations Continue with Current Program, Advance per Rehabilitation Protocol Additional Types of Modalities Heat/Ice/
--- NOTE | 2024-02-17 13:27 | OT.OP.TRT ---
Visit Care Team Role Provider Type Delfino Epstein MD Attending Provider Physician Family Provider Primary Care Provider Referring Provider Specialty: Family Practice Address: [address] [place] [address], [address], [place], [address] Email: [email or web address] Occupational Therapy Treatment Note OT Outpatient Treatment Note - Adult Start: 12/23/23 11:21 Freq: Status: Active Protocol: Document 02/17/24 13:21 AMS (Rec: 02/17/24 13:27 AMS [id number]) OT Outpatient Adult Treatment Note Session Time Visit Start Time 10:30 Visit Stop Time 11:10 Visit Information Visit Number 06/13 Plan of Care Dates 01/27/24 - 03/09/24 Insurance Information [facility] Treatment Setting Outpatient Care Visit Type Note Type Treatment Note General Information General Information Sukh is 68 years of age and was referred to outpatient OT secondary to CVA. PMH: Significant for antiphospholipid antibody syndrome; aphasia; CAD; cardiac arrhythmia; CVA involvign L MCA territory ; chronic atrial flutter; chronic systolic CHF; CAD; DM ; DVT; essential HTN; hyperlipidemia; RI; pacemaker; RA; stenosis of left carotid artery; systolic heart failure . - Subjective Identification Type Name Observations Sukh was seen 1:1 for treatment session. (+) ambulation to and from treatment session w/ quad cane w/ mod independence. Patient/Caregiver Compliance with Home Good Exercise Program Comment w/ family and caregiver support - Objective Objective Measurements Please refer to below for progress towards meeting established OT goals. 02/17/24 = Nodule present slightly distal/radial of the L 5th PIPJ; nodule present ulnarly of the L 4th PIPJ. Denied pain/discomfort w/ palpation/pressing 4th/5th digits together/adduction. 01/27/24 = 11.0# of force R assistant football coach w/ dynamometer II assistant football coach strength test. 04/03/23 = Able to copy his first name utilizing writing utensil positioned in the L hand; copying took increased time and there was some ' shakiness' observed in curves and lines, however, he sequenced letters appropriately and name had good letter spacing and sizing and was legible. Sukh was also able to connect numbers ( 1-10) in order without errors and without support from clinician. 05/16/20= avg 8.0 pounds of force w/ R assistant football coach dynamometer II testing. Web Support Engineer Goals 1. Sukh will be modified independent with execution of home exercise program with the support of his family and caregivers utilizing written and visual instructions as needed. 2. Sukh will be demonstrating increased attention to the R UE; this will be evidenced by Sukh's indication/family's report that he is actively incorporating and/or attending to the R UE in 2-3 different tasks/activities in the home environment (e.g., bimanual coordination, positioning of R UE on arm rest). - Treatment 5 Descriptor Bimanual activities. Cane w/ beachball. Modified baseball batting ( seated). Exercises 6 Descriptor Sh ROM. Modified resisted (use of TT). TT Sh flex. 3 x 10 AROM. TT Sh ext. 3 x 10 AROM. TT Sh add/abd. 3 x 10 AROM. TT diagonal. 3 x 10 AROM. 5 Descriptor Athletic Gear Custodian Horizontal positioning of dowel. TB#5. 3 x 10. Vertical positioning of dowel. TB#5. 3 x 10. Maintenance of R handed grasp of flex bar while bending to ' n' w/ contralateral hand. Red flex bar 1 x 11. - Assessment Assessment of Improvement Sukh cont to do well w/ TT towel based range of motion of R UE exercises. He is attentive to various components within the OT treatment room; he also is observant to his hands/fingers pointing out small/healed scars of dorsal R thumb webspace and nodules present of the 4th and 5th PIP joints of the L hand w/ denial of pain/discomfort w/ palpation of nodules and/or w/ pressure applied between the 2 digits of the hand. He has demonstrated good skill coordination of his hands together w/ hitting 3 and 1/2- inch ball in all directions w/ underhand 'pitched ball' by clinician. Was observed to position right hand inferiorly relative to L hand. He cont to benefit from passive ranging of the R hand w/ incorporation of passive hook fist for stretching of intrinsics and extension of all joints of the fingers of the hand w/ increased tolerance w/ wrist in slight flexion. Continued outpatient OT would be recommended to address attention to R UE, as well as revisit R UE home exercise program. - Plan Therapy Recommendations Continue with Current Program, Advance per Rehabilitation Protocol Additional Types of Modalities Heat/Ice/
--- NOTE | 2024-02-24 13:59 | OT.OP.TRT ---
Visit Care Team Role Provider Type Delfino Epstein MD Attending Provider Physician Family Provider Primary Care Provider Referring Provider Specialty: Family Practice Address: [address] [place] [address], [address], [place], [address] Email: [email or web address] Occupational Therapy Treatment Note OT Outpatient Treatment Note - Adult Start: 12/23/23 11:21 Freq: Status: Active Protocol: Document 02/24/24 13:54 AMS (Rec: 02/24/24 13:59 AMS [id number]) OT Outpatient Adult Treatment Note Session Time Visit Start Time 10:30 Visit Stop Time 11:10 Visit Information Visit Number 07/14 Plan of Care Dates 01/27/24 - 03/09/24 Insurance Information [facility] Treatment Setting Outpatient Care Visit Type Note Type Treatment Note General Information General Information Sukh is 68 years of age and was referred to outpatient OT secondary to CVA. PMH: Significant for antiphospholipid antibody syndrome; aphasia; CAD; cardiac arrhythmia; CVA involvign L MCA territory ; chronic atrial flutter; chronic systolic CHF; CAD; DM ; DVT; essential HTN; hyperlipidemia; [place]; pacemaker; RA; stenosis of left carotid artery; systolic heart failure . - Subjective Identification Type Name Observations Sukh was seen 1:1 for treatment session. (+) ambulation to and from treatment session w/ quad cane w/ mod independence. Patient/Caregiver Compliance with Home Good Exercise Program Comment w/ family and caregiver support - Objective Objective Measurements Please refer to below for progress towards meeting established OT goals. 02/17/24 = Nodule present slightly distal/radial of the L 5th PIPJ; nodule present ulnarly of the L 4th PIPJ. Denied pain/discomfort w/ palpation/pressing 4th/5th digits together/adduction. 01/27/24 = 11.0# of force R windows application packager w/ dynamometer II windows application packager strength test. 04/03/23 = Able to copy his first name utilizing writing utensil positioned in the L hand; copying took increased time and there was some ' shakiness' observed in curves and lines, however, he sequenced letters appropriately and name had good letter spacing and sizing and was legible. Sukh was also able to connect numbers ( 1-10) in order without errors and without support from clinician. 05/16/20= avg 8.0 pounds of force w/ R windows application packager dynamometer II testing. Wet Finisher Wool Goals 1. Sukh will be modified independent with execution of home exercise program with the support of his family and caregivers utilizing written and visual instructions as needed. 2. Sukh will be demonstrating increased attention to the R UE; this will be evidenced by Sukh's indication/family's report that he is actively incorporating and/or attending to the R UE in 2-3 different tasks/activities in the home environment (e.g., bimanual coordination, positioning of R UE on arm rest). - Treatment 5 Descriptor Bimanual activities. Cane w/ beachball. Modified baseball batting ( seated). L leading. R leading. Exercises 6 Descriptor Sh ROM. Modified resisted (use of TT). TT Sh flex. 3 x 10 AROM. TT Sh ext. 3 x 10 AROM. TT Sh add/abd. 3 x 10 AROM. TT diagonal. 3 x 10 AROM. 5 Descriptor Behavioral Medical Director Horizontal positioning of dowel. TB#5. 3 x 10. Vertical positioning of dowel. TB#5. 3 x 10. Maintenance of R handed grasp of flex bar while bending to ' n' w/ contralateral hand. Red flex bar 1 x 11. - Assessment Assessment of Improvement Sukh is attentive to various components within the OT treatment room. He cont to do well w/ TT towel based range of motion of R UE exercises, as well as with bilateral UE exercises. He has demonstrated good skill coordination of his hands together w/ hitting 3 and 1/2-inch ball in all directions w/ underhand ' pitched ball' by clinician; today he spent approx half of the time w/ R hand positioned inferiorly to L hand and half of the time w/ R hand positioned superiorly to L hand. Did trial batting R handed and L handed w/ preference indicated by Sukh for batting L handed. He cont to benefit from passive ranging of the R hand w/ incorporation of passive hook fist for stretching of intrinsics and extension of all joints of the fingers of the hand w/ increased tolerance w/ wrist in slight flexion. Continued outpatient OT would be recommended to address attention to R UE, as well as revisit R UE home exercise program. - Plan Therapy Recommendations Continue with Current Program, Advance per Rehabilitation Protocol Additional Types of Modalities Heat/Ice/
--- NOTE | 2024-03-02 15:24 | OT.OP.TRT ---
Visit Care Team Role Provider Type Delfino Epstein MD Attending Provider Physician Family Provider Primary Care Provider Referring Provider Specialty: Family Practice Address: [address] [place] [address], [address], [place], [address] Email: [email or web address] Occupational Therapy Treatment Note OT Outpatient Treatment Note - Adult Start: 12/23/23 11:21 Freq: Status: Active Protocol: Document 03/02/24 15:19 AMS (Rec: 03/02/24 15:24 [facility] [id number]) OT Outpatient Adult Treatment Note Session Time Visit Start Time 10:30 Visit Stop Time 11:10 Visit Information Visit Number 03/13 Plan of Care Dates 01/27/24 - 03/09/24 Insurance Information [facility] Setting Treatment Setting Outpatient Care Visit Type Note Type Treatment Note General Information General Information Sukh is 68 years of age and was referred to outpatient OT secondary to CVA. PMH: Significant for antiphospholipid antibody syndrome; aphasia; CAD; cardiac arrhythmia; CVA involvign L MCA territory ; chronic atrial flutter; chronic systolic CHF; CAD; DM ; DVT; essential HTN; hyperlipidemia; [place]; pacemaker; RA; stenosis of left carotid artery; systolic heart failure . - Subjective Identification Type Name Observations Sukh was seen 1:1 for treatment session. (+) ambulation to and from treatment session w/ quad cane w/ mod independence. Patient/Caregiver Compliance with Home Good Exercise Program Comment w/ family and caregiver support - Objective Objective Measurements Please refer to below for progress towards meeting established OT goals. 02/17/24 = Nodule present slightly distal/radial of the L 5th PIPJ; nodule present ulnarly of the L 4th PIPJ. Denied pain/discomfort w/ palpation/pressing 4th/5th digits together/adduction. 01/27/24 = 11.0# of force R lead python developer w/ dynamometer II lead python developer strength test. 04/03/23 = Able to copy his first name utilizing writing utensil positioned in the L hand; copying took increased time and there was some ' shakiness' observed in curves and lines, however, he sequenced letters appropriately and name had good letter spacing and sizing and was legible. Sukh was also able to connect numbers ( 1-10) in order without errors and without support from clinician. 05/16/20= avg 8.0 pounds of force w/ R lead python developer dynamometer II testing. Jigmaker Goals 1. Sukh will be modified independent with execution of home exercise program with the support of his family and caregivers utilizing written and visual instructions as needed. 2. Sukh will be demonstrating increased attention to the R UE; this will be evidenced by Sukh's indication/family's report that he is actively incorporating and/or attending to the R UE in 2-3 different tasks/activities in the home environment (e.g., bimanual coordination, positioning of R UE on arm rest). - Treatment 5 Descriptor Bimanual activities. Cane w/ beachball. Modified baseball batting ( seated). R leading/L handed batting approach. Exercises 6 Descriptor Sh ROM. Modified resisted (use of TT). TT Sh flex. 3 x 10 AROM. TT Sh ext. 3 x 10 AROM. TT Sh add/abd. 3 x 10 AROM. TT diagonal. 3 x 10 AROM. 5 Descriptor It Support Specialist Horizontal positioning of dowel. TB#5. 2 x 10. Vertical positioning of dowel. TB#5. 2 x 10. Maintenance of R handed grasp of flex bar while bending to ' n' w/ contralateral hand. Red flex bar 1 x 10. Sustained hold 5 to 10 sec x 5 reps. - Assessment Assessment of Improvement Sukh is attentive to various components within the OT treatment room. He cont to do well w/ TT towel based range of motion of R UE exercises, as well as with bilateral UE exercises. Oriented in batting L handed stance based on indication of preference at last treatment session; R hand positioned inferiorly to L hand on cane w/ R hand eventually resting on top of R LE; need to monitor for this. Phys assistance to encourage all digits grasping of red flex bar. He cont to benefit from passive ranging of the R hand w/ incorporation of passive hook fist for stretching of intrinsics and extension of all joints of the fingers of the hand w/ increased tolerance w/ wrist in slight flexion. Continued outpatient OT would be recommended to address attention to R UE, as well as revisit R UE home exercise program. - Plan Therapy Recommendations Continue with Current Program, Advance per Rehabilitation Protocol Additional Types of Modalities Heat/Ice/
--- NOTE | 2024-03-09 14:30 | OT.OPPOC ---
Physical, Occupational & Speech Therapy At [facility] Sukh Colvin [id number] 1955 Visit Care Team Role Provider Type Delfino Epstein MD Attending Provider Physician Family Provider Primary Care Provider Referring Provider Address: [address] [place] [address], [address], [address] Occupational Therapy Plan of Care OT Outpatient Adult Evaluation Start: 12/23/23 11:21 Freq: Status: Active Protocol: Document 12/23/23 11:21 AMS (Rec: 12/23/23 12:11 AMS [id number]) General Information - Adult Visit Information Plan of Care Dates 12/23/23 - 02/03/24 Insurance Information [facility]; *No limits PCY Session Time Visit Start Time 10:30 Visit Stop Time 11:13 Setting Treatment Setting Outpatient Care Visit Type Note Type Initial Evaluation Identification Identification Confirmed Yes Identification Confirmed By du Blevins Goals Treatment Treatment Attention. Active incorporation of R UE. Metal Off Bearer Goals [facility] Goals 1. Sukh will be modified independent with execution of home exercise program with the support of his family and caregivers utilizing written and visual instructions as needed. 2. Sukh will be demonstrating increased attention to the R UE; this will be evidenced by Sukh's indication/family's report that he is actively incorporating and/or attending to the R UE in 2-3 different tasks/activities in the home environment (e.g., bimanual coordination, positioning of R UE on arm rest). Assessment/Plan Assessment Treatment Assessment Sukh is 68 years of age and was referred to outpatient OT secondary to CVA. PMH: Significant for antiphospholipid antibody syndrome; aphasia; CAD; cardiac arrhythmia; CVA involvign L MCA territory ; chronic atrial flutter; chronic systolic CHF; CAD; DM ; DVT; essential HTN; hyperlipidemia; TX; pacemaker; RA; stenosis of left carotid artery; systolic heart failure . No recent falls reported, although, did roll out of bed on 2 occasions w/ need for assist from Adelfo w/ fall recovery. Sukh was accompanied by his Felicity and Svetlana who assists with Sukh's care. Sukh ambulated to treatment session w/ quad cane; Felicity reports that he has a standard w/c w/ R randa arm rest/table that they received post- rehab facility stay. She would like to consider getting Sukh an electic w/c to support his independence within the community. He is actively doffing UB clothing, including unbuttoning. No complaints/ reports of pain/discomfort with dressing or bathing. There is a concern for R sided neglect; although, good active incorporation and grasping/releasing the golf club requiring no assistance on this date (w/ no cueing). Sukh also shakes his brother 's hand w/ R. Sukh does not wear g/h subluxation sling and /or UE splint/brace. (+) noted neglect of R UE. -47 degrees active R elbow ext; 13 degrees active R elbow flex; 25 degrees active R sh flex; 5 degrees active R sh ext; 10 degrees active R sh abd. Able to passively extend MP, PIP, and DIPJ of digits 2-5 to neutral. Outpatient OT to address attention to R UE, as well as revisit R UE home exercise program. Plan Length of treatment (weeks) 6 Plan of Care Start Date 12/23/23 Plan of Care End Date 02/03/24 Treatment Frequency Once a Week Therapeutic Contents Active Range of Motion, Adaptive Equipment Education, Functional Activities,Home Exercise Program,Joint Protection,Manual Therapy, Education,Neurodevelopment Treatment,Neuromuscular Re- Education,Self-Care,Stretching /Flexibility Activities, Therapeutic Activities, Therapeutic Exercises, Modalities Additional Types of Modalities Heat/Ice Functional Wrist/Hand Scan Hand Side Sensory Assessment Sensory Profile2 OT Outpatient Treatment Note - Adult Start: 12/23/23 11:21 Freq: Status: Active Protocol: Document 03/09/24 16:00 AMS (Rec: 03/10/24 08:50 AMS [id number]) OT Outpatient Adult Treatment Note Session Time Visit Start Time 13:00 Visit Stop Time 13:40 Visit Information Visit Number 11/13 Plan of Care Dates 03/09/24 - 05/18/24 Insurance Information [facility] Setting Treatment Setting Outpatient Care Visit Type Note Type Progress Note General Information General Information Sukh is 68 years of age and was referred to outpatient OT secondary to CVA. PMH: Significant for antiphospholipid antibody syndrome; aphasia; CAD; cardiac arrhythmia; CVA involvign L MCA territory ; chronic atrial flutter; chronic systolic CHF; CAD; DM ; DVT; essential HTN; hyperlipidemia; TX; pacemaker; RA; stenosis of left carotid artery; systolic heart failure . - Subjective Identification Type Name Observations Sukh was seen 1:1 for treatment session. No new concerns were indicated. Patient/Caregiver Compliance with Home Good Exercise Program Comment w/ family and caregiver support - Objective Objective Measurements Please refer to below for progress towards meeting established OT goals. 02/17/24 = Nodule present slightly distal/radial of the L 5th PIPJ; nodule present ulnarly of the L 4th PIPJ. Denied pain/discomfort w/ palpation/pressing 4th/5th digits together/adduction. 01/27/24 = 11.0# of force R credit and collections analyst w/ dynamometer II credit and collections analyst strength test. 04/03/23 = Able to copy his first name utilizing writing utensil positioned in the L hand; copying took increased time and there was some ' shakiness' observed in curves and lines, however, he sequenced letters appropriately and name had good letter spacing and sizing and was legible. Sukh was also able to connect numbers ( 1-10) in order without errors and without support from clinician. 05/16/20= avg 8.0 pounds of force w/ R credit and collections analyst dynamometer II testing. Metal Off Bearer Goals 1. Sukh will be modified independent with execution of home exercise program with the support of his family and caregivers utilizing written and visual instructions as needed. 2. Sukh will be demonstrating increased attention to the R UE; this will be evidenced by Sukh's indication/family's report that he is actively incorporating and/or attending to the R UE in 2-3 different tasks/activities in the home environment (e.g., bimanual coordination, positioning of R UE on arm rest). - Treatment 5 Descriptor Bimanual activities. Cane w/ beachball. Modified baseball batting ( seated). R leading/L handed batting approach. Exercises 6 Descriptor Sh ROM. Modified resisted (use of TT). TT Sh flex. 3 x 10 AROM. TT Sh ext. 3 x 10 AROM. TT Sh add/abd. 3 x 10 AROM. TT diagonal. 3 x 10 AROM. 5 Descriptor Dye Lab Technician Horizontal positioning of dowel. TB#5. 2 x 10. Vertical positioning of dowel. TB#5. 2 x 10. Maintenance of R handed grasp of flex bar while bending to ' n' w/ contralateral hand. Red flex bar 1 x 10. Sustained hold 5 to 7 sec x 3 reps. Formation of 'o' x 2 attempts. - Assessment Assessment of Improvement Sukh cont to do well w/ TT towel based range of motion of R UE exercises, as well as with bilateral UE exercises. Clinician has made slight adjustments to cane exercises to increase difficulty and/or in response to preferences indicated by Sukh (e.g., raising height of TT w/ cane vball and L handed approach to batting w/ cane). Sukh has demonstrated preference for positioning of R hand inferiorly to L hand on cane w / L handed seated batting stance w/ eventual resting of R hand on top of R LE for support. Sukh cont to benefit from passive ranging of the R hand w/ incorporation of passive hook fist for stretching of intrinsics and extension of all joints of the fingers of the hand w/ increased tolerance w/ wrist in slight flexion. Sukh has demonstrated progress w/ utilization of theraband flex- bar; he has been able to sustain grasp w/ flex-bar bent in 'n' for 5-7 sec and even touch opposite ends of flex- bar to form 'o'. Although, he has needed phys assistance for initial grasping of flex bar. Continued outpatient OT would be recommended to address attention to R UE, as well as revisit R UE home exercise program. - Plan Therapy Recommendations Continue with Current Program, Advance per Rehabilitation Protocol Comment 10 weeks Frequency of Treatment Once a Week Therapeutic Contents Active Range of Motion, Adaptive Equipment Education, Functional Activities,Home Exercise Program,Joint Protection,Manual Therapy, Education,Neurodevelopment Treatment,Neuromuscular Re- Education,Self-Care,Stretching /Flexibility Activities, Therapeutic Activities, Therapeutic Exercises, Modalities Modalities As Needed,As Prescribed Additional Types of Modalities Heat/Ice/Contrast baths/ Paraffin Electronically Signed by: Bobbi Staples, OT 03/10/24 0957 If you are in agreement with this Plan of Care, please return a signed and dated copy. I have reviewed this Plan of Care and certify that the skilled therapy services above are required to meet the patient?s needs. Physician Signature Date Printed Name and Credentials Clinical Instructor Signature Printed Name and Credentials
--- NOTE | 2024-03-17 11:24 | OT.OP.TRT ---
Visit Care Team Role Provider Type Delfino Epstein MD Attending Provider Physician Family Provider Primary Care Provider Referring Provider Specialty: Family Practice Address: [address] [place] [address], [address], [place], [address] Email: [email or web address] Occupational Therapy Treatment Note OT Outpatient Treatment Note - Adult Start: 12/23/23 11:21 Freq: Status: Active Protocol: Document 03/17/24 11:15 AMS (Rec: 03/17/24 11:24 AMS [id number]) OT Outpatient Adult Treatment Note Session Time Visit Start Time 10:30 Visit Stop Time 11:10 Visit Information Visit Number [id number] Plan of Care Dates 03/09/24 - 05/18/24 Insurance Information [facility] Setting Treatment Setting Outpatient Care Visit Type Note Type Treatment Note General Information General Information Sukh is 68 years of age and was referred to outpatient OT secondary to CVA. PMH: Significant for antiphospholipid antibody syndrome; aphasia; CAD; cardiac arrhythmia; CVA involvign L MCA territory ; chronic atrial flutter; chronic systolic CHF; CAD; DM ; DVT; essential HTN; hyperlipidemia; NV; pacemaker; RA; stenosis of left carotid artery; systolic heart failure . - Subjective Identification Type Name Observations Sukh was seen 1:1 for treatment session. No new concerns were indicated. Patient/Caregiver Compliance with Home Good Exercise Program Comment w/ family and caregiver support - Objective Objective Measurements Please refer to below for progress towards meeting established OT goals. 02/17/24 = Nodule present slightly distal/radial of the L 5th PIPJ; nodule present ulnarly of the L 4th PIPJ. Denied pain/discomfort w/ palpation/pressing 4th/5th digits together/adduction. 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 04/03/23 = Able to copy his first name utilizing writing utensil positioned in the L hand; copying took increased time and there was some ' shakiness' observed in curves and lines, however, he sequenced letters appropriately and name had good letter spacing and sizing and was legible. Sukh was also able to connect numbers ( 1-10) in order without errors and without support from clinician. 05/16/20= avg 8.0 pounds of force w/ R county court judge dynamometer II testing. Ccu Nurse Goals 1. Sukh will be modified independent with execution of home exercise program with the support of his family and caregivers utilizing written and visual instructions as needed. 2. Sukh will be demonstrating increased attention to the R UE; this will be evidenced by Sukh's indication/family's report that he is actively incorporating and/or attending to the R UE in 2-3 different tasks/activities in the home environment (e.g., bimanual coordination, positioning of R UE on arm rest). - Treatment 5 Descriptor Bimanual activities. Cane w/ beachball. Modified baseball batting ( seated). L handed batting approach. Exercises 9 Descriptor PROM of R hand/wrist by clinician. 8 Descriptor ROM Measurements. 7 Descriptor Elbow ext. TB #3 (modified place and hold x 3 sec w/ TB and muscle tapping to facilitate). 2 x 10. Elbow flex. Muscle tapping to facilitate. 2 x 10. [ End ] 6 Descriptor Sh ROM. Modified resisted (use of TT). 1# DB positioned in L hand. TT Sh flex. 3 x 10 AROM. TT Sh ext. 3 x 10 AROM. TT Sh add/abd. 3 x 10 AROM. TT diagonal. 3 x 10 AROM. TT circular. 3 x 10. AROM. CCW . 5 Descriptor Hardware Designer Horizontal positioning of dowel. TB#5. 2 x 10. Vertical positioning of dowel. TB#5. 2 x 10. Maintenance of R handed grasp of flex bar while bending to ' n' w/ contralateral hand. Red flex bar 1 x 10. Sustained hold 5 to 7 sec x 4 reps. Formation of 'o' x 4 attempts. - Assessment Assessment of Improvement Sukh cont to do well w/ TT towel based range of motion of R UE exercises; use of 1# DB positioned in L hand (may want to trial heavier DB as tolerated). Did position R hand superiorly to L hand on cane -> then 2-handed clasped approach -> then R hand inferior to L hand w/ L handed approach to batting. Uskh cont to benefit from passive ranging of the R hand (passive hook fist, extension of all digits, passive abduction, passive thumb flex/ext/abd); cont to execute w/ wrist in slight flex w/ forearm pronated. Increased reps w/ sustained hold and attempt at formation of 'o' w/ red flex- bar; cont to need phys assist w/ initial grasp of flex bar. Continued outpatient OT would be recommended to address attention to R UE, as well as revise/modify R UE home exercise program as needed. - Plan Therapy Recommendations Continue with Current Program, Advance per Rehabilitation Protocol Modalities As Needed,As Prescribed Additional Types of Modalities Heat/Ice/Contrast baths/ Paraffin
--- NOTE | 2024-03-23 15:32 | OT.OP.TRT ---
Visit Care Team Role Provider Type Delfino Epstein MD Attending Provider Physician Family Provider Primary Care Provider Referring Provider Specialty: Family Practice Address: [address] [place] [address], [address], [place], [address] Email: [email or web address] Occupational Therapy Treatment Note OT Outpatient Treatment Note - Adult Start: 12/23/23 11:21 Freq: Status: Active Protocol: Document 03/23/24 15:26 AMS (Rec: 03/23/24 15:32 AMS [id number]) OT Outpatient Adult Treatment Note Session Time Visit Start Time 10:30 Visit Stop Time 11:10 Visit Information Visit Number 01/11 Plan of Care Dates 03/09/24 - 05/18/24 Insurance Information [facility] Setting Treatment Setting Outpatient Care Visit Type Note Type Treatment Note General Information General Information Sukh is 68 years of age and was referred to outpatient OT secondary to CVA. PMH: Significant for antiphospholipid antibody syndrome; aphasia; CAD; cardiac arrhythmia; CVA involvign L MCA territory ; chronic atrial flutter; chronic systolic CHF; CAD; DM ; DVT; essential HTN; hyperlipidemia; MN; pacemaker; RA; stenosis of left carotid artery; systolic heart failure . - Subjective Identification Type Name Observations Sukh was seen 1:1 for treatment session. No new concerns were indicated. Patient/Caregiver Compliance with Home Good Exercise Program Comment w/ family and caregiver support - Objective Objective Measurements Please refer to below for progress towards meeting established OT goals. 02/17/24 = Nodule present slightly distal/radial of the L 5th PIPJ; nodule present ulnarly of the L 4th PIPJ. Denied pain/discomfort w/ palpation/pressing 4th/5th digits together/adduction. 01/27/24 = 11.0# of force R lead trainer w/ dynamometer II lead trainer strength test. 04/03/23 = Able to copy his first name utilizing writing utensil positioned in the L hand; copying took increased time and there was some ' shakiness' observed in curves and lines, however, he sequenced letters appropriately and name had good letter spacing and sizing and was legible. Sukh was also able to connect numbers ( 1-10) in order without errors and without support from clinician. 05/16/20= avg 8.0 pounds of force w/ R lead trainer dynamometer II testing. Extruder Operator Multiple Goals 1. Sukh will be modified independent with execution of home exercise program with the support of his family and caregivers utilizing written and visual instructions as needed. 2. Sukh will be demonstrating increased attention to the R UE; this will be evidenced by Sukh's indication/family's report that he is actively incorporating and/or attending to the R UE in 2-3 different tasks/activities in the home environment (e.g., bimanual coordination, positioning of R UE on arm rest). - Treatment 5 Descriptor Bimanual activities. Cane w/ beachball. Modified baseball batting ( seated). L handed batting approach. Modified cane w/ balloon. Front forward sitting. 2 handed approach. Exercises 9 Descriptor PROM of R hand/wrist. Passive hook fist. Passive duck. Passive digit abd. Passive R thumb ROM. Abduction . Flex/ext. Opposition. Passive wrist ext. 6 Descriptor Sh ROM. Modified resisted (use of TT). 2# DB positioned in L hand. TT Sh flex. 3 x 10 AROM. TT Sh ext. 3 x 10 AROM. TT Sh add/abd. 3 x 10 AROM. TT diagonal. 3 x 10 AROM. TT circular. 3 x 10. AROM. CCW . 5 Descriptor Electronics Technician Maintenance of R handed grasp of flex bar while bending to ' n' w/ contralateral hand. Red flex bar 1 x 9. (-) sustained hold. N/A 03/23/24 Horizontal positioning of dowel. TB#5. 2 x 10. Vertical positioning of dowel. TB#5. 2 x 10. - Assessment Assessment of Improvement Sukh cont to do well w/ TT towel based range of motion of R UE exercises; use of 2# DB positioned in L hand ( preference indicated for 2# DB vs 3# DB). Positioned R hand inferiorly to L hand w/ L handed approach to batting. Introduced 2-handed approach to grasping of vertical cane and hitting of balloon L and R of base of support while sitting. Sukh cont to benefit from passive ranging of the R hand; cont to execute w/ wrist in slight flex w/ forearm pronated. Indication of discomfort w/ use of red flexbar on this date of R hand ; (-) sustained holds/attempts at formation of 'o' w/ flexbar and reduction of reps from 10 --> 9. Continued outpatient OT would be recommended to address attention to R UE, as well as revise/modify R UE home exercise program as needed. - Plan Therapy Recommendations Continue with Current Program, Advance per Rehabilitation Protocol Modalities As Needed,As Prescribed Additional Types of Modalities Heat/Ice/Contrast baths/ Paraffin
--- NOTE | 2024-03-31 11:30 | OT.OP.TRT ---
Visit Care Team Role Provider Type Delfino Epstein MD Attending Provider Physician Family Provider Primary Care Provider Referring Provider Specialty: Family Practice Address: [address] [place] [address], [address], [place], [address] Email: [email or web address] Occupational Therapy Treatment Note OT Outpatient Treatment Note - Adult Start: 12/23/23 11:21 Freq: Status: Active Protocol: Document 03/31/24 11:20 AMS (Rec: 03/31/24 11:30 AMS [id number]) OT Outpatient Adult Treatment Note Session Time Visit Start Time 10:30 Visit Stop Time 11:10 Visit Information Visit Number 02/11 Plan of Care Dates 03/09/24 - 05/18/24 Insurance Information [facility] Setting Treatment Setting Outpatient Care Visit Type Note Type Treatment Note General Information General Information Sukh is 68 years of age and was referred to outpatient OT secondary to CVA. PMH: Significant for antiphospholipid antibody syndrome; aphasia; CAD; cardiac arrhythmia; CVA involving L MCA territory ; chronic atrial flutter; chronic systolic CHF; CAD; DM ; DVT; essential HTN; hyperlipidemia; [place]; pacemaker; RA; stenosis of left carotid artery; systolic heart failure . - Subjective Identification Type Name Identification Reconciled With Medical Record Observations Sukh was accompanied by Felicity to treatment session. Felicity expressed concern re: Sukh's swallowing and risk for aspiration. New referral has been placed for speech therapy by PCP. Patient/Caregiver Compliance with Home Good Exercise Program Comment w/ family and caregiver support - Objective Objective Measurements Please refer to below for progress towards meeting established OT goals. 02/17/24 = Nodule present slightly distal/radial of the L 5th PIPJ; nodule present ulnarly of the L 4th PIPJ. Denied pain/discomfort w/ palpation/pressing 4th/5th digits together/adduction. 01/27/24 = 11.0# of force R swing saw operator w/ dynamometer II swing saw operator strength test. 04/03/23 = Able to copy his first name utilizing writing utensil positioned in the L hand; copying took increased time and there was some ' shakiness' observed in curves and lines, however, he sequenced letters appropriately and name had good letter spacing and sizing and was legible. Sukh was also able to connect numbers ( 1-10) in order without errors and without support from clinician. 05/16/20= avg 8.0 pounds of force w/ R swing saw operator dynamometer II testing. Senior Program Analyst Goals 1. Sukh will be modified independent with execution of home exercise program with the support of his family and caregivers utilizing written and visual instructions as needed. 2. Sukh will be demonstrating increased attention to the R UE; this will be evidenced by Sukh's indication/family's report that he is actively incorporating and/or attending to the R UE in 2-3 different tasks/activities in the home environment (e.g., bimanual coordination, positioning of R UE on arm rest). - Treatment 5 Descriptor Bimanual activities. Cane w/ beachball. Modified baseball batting ( seated). L handed batting approach. Modified cane w/ balloon. Front forward sitting. 2 handed approach. Exercises 9 Descriptor PROM of R hand/wrist. Passive hook fist. Passive duck. Passive digit abd. Passive R thumb ROM. Abduction . Flex/ext. Opposition. Passive wrist ext. 6 Descriptor Sh ROM. Modified resisted (use of TT). 2# DB positioned in L hand. TT Sh flex. 3 x 10 AROM. TT Sh ext. 3 x 10 AROM. TT Sh add/abd. 3 x 10 AROM. TT diagonal. 3 x 10 AROM. TT circular. 3 x 10. AROM. CCW . 5 Descriptor Sustained Senior Service Aide/Senior Service Aide Strengthening Horizontal positioning of dowel. TB#5. 2 x 10. Vertical positioning of dowel. TB#5. 2 x 10. 2 Descriptor Red flex bar. Bending of flex bar 1 x 20; 1 x 5 sustained hold. 1 Descriptor Scapular pinches Side Both Body Position Sitting Sets 1 Repetitions 10 - Assessment Assessment of Improvement Sukh cont to do well w/ TT towel based range of motion of R UE exercises; use of 2# DB positioned in L hand (* preference previously indicated for 2# DB vs 3# DB). Positioned R hand inferiorly to L hand w/ L handed approach to batting. Sukh cont to benefit from passive ranging of the R hand; cont to execute w/ wrist in slight flex w/ forearm pronated. (-) indication of discomfort w/ use of red flexbar on this date of R hand; increased reps compared to previous treatment sessions. Rec re- visiting balloon volleyball w/ vertically orientated cane w/ balloon thrown to L and R of body. Continued outpatient OT would be recommended to address attention to R UE, as well as revise/modify R UE home exercise program as needed. - Plan Therapy Recommendations Advance per Rehabilitation Protocol
--- NOTE | 2024-04-07 16:07 | OT.OP.TRT ---
Visit Care Team Role Provider Type Delfino Epstein MD Attending Provider Physician Family Provider Primary Care Provider Referring Provider Specialty: Family Practice Address: [address] [place] [address], [address], [place], [address] Email: [email or web address] Occupational Therapy Treatment Note OT Outpatient Treatment Note - Adult Start: 12/23/23 11:21 Freq: Status: Active Protocol: Document 04/07/24 16:03 AMS (Rec: 04/07/24 16:07 [facility] [id number]) OT Outpatient Adult Treatment Note Session Time Visit Start Time 14:35 Visit Stop Time 15:15 Visit Information Visit Number 03/13 Plan of Care Dates 03/09/24 - 05/18/24 Insurance Information [facility] Setting Treatment Setting Outpatient Care Visit Type Note Type Treatment Note General Information General Information Sukh is 68 years of age and was referred to outpatient OT secondary to CVA. PMH: Significant for antiphospholipid antibody syndrome; aphasia; CAD; cardiac arrhythmia; CVA involving L MCA territory ; chronic atrial flutter; chronic systolic CHF; CAD; DM ; DVT; essential HTN; hyperlipidemia; MN; pacemaker; RA; stenosis of left carotid artery; systolic heart failure . - Subjective Identification Type Name Identification Reconciled With Medical Record Observations Sukh was seen 1:1 for OT session. Patient/Caregiver Compliance with Home Good Exercise Program Comment w/ family and caregiver support - Objective Objective Measurements Please refer to below for progress towards meeting established OT goals. 02/17/24 = Nodule present slightly distal/radial of the L 5th PIPJ; nodule present ulnarly of the L 4th PIPJ. Denied pain/discomfort w/ palpation/pressing 4th/5th digits together/adduction. 01/27/24 = 11.0# of force R heavy repairer w/ dynamometer II heavy repairer strength test. 04/03/23 = Able to copy his first name utilizing writing utensil positioned in the L hand; copying took increased time and there was some ' shakiness' observed in curves and lines, however, he sequenced letters appropriately and name had good letter spacing and sizing and was legible. Sukh was also able to connect numbers ( 1-10) in order without errors and without support from clinician. 05/16/20= avg 8.0 pounds of force w/ R heavy repairer dynamometer II testing. Operations And Maintenance Specialist Goals 1. Sukh will be modified independent with execution of home exercise program with the support of his family and caregivers utilizing written and visual instructions as needed. 2. Sukh will be demonstrating increased attention to the R UE; this will be evidenced by Sukh's indication/family's report that he is actively incorporating and/or attending to the R UE in 2-3 different tasks/activities in the home environment (e.g., bimanual coordination, positioning of R UE on arm rest). - Treatment 5 Descriptor Bimanual activities. Cane w/ beachball. Modified baseball batting ( seated). L handed batting approach. Modified cane w/ balloon. Front forward sitting. 2 handed approach. Exercises 9 Descriptor PROM of R hand/wrist. Passive hook fist. Passive duck. Passive digit abd. Passive R thumb ROM. Abduction . Flex/ext. Opposition. Passive wrist ext. 6 Descriptor Sh ROM. Modified resisted (use of TT). 2# DB positioned in L hand. TT Sh flex. 3 x 10 AROM. TT Sh ext. 3 x 10 AROM. TT Sh add/abd. 3 x 10 AROM. TT diagonal. 3 x 10 AROM. TT circular. 3 x 10. AROM. CCW . 5 Descriptor Sustained Social Science Teacher/Social Science Teacher Strengthening Horizontal positioning of dowel. TB#5. 2 x 10. Vertical positioning of dowel. TB#5. 2 x 10. 2 Descriptor Red flex bar. Bending of flex bar 1 x 26; 1 x 5 sustained hold. - Assessment Assessment of Improvement Sukh cont to do well w/ TT towel based range of motion of R UE exercises; use of 2# DB positioned in L hand (* preference previously indicated for 2# DB vs 3# DB). Positioned R hand inferiorly to L hand w/ L handed approach to batting. Min phys support provided to assist w/ grasping of red flexbar. (+) increased reps w/ red flex bar compared to previous treatment session ; decreased active engagement of 4th and 5th digits w/ grasping of flexbar w/ the R hand intermittently throughout exercise which was likely influenced by proximal stabilization, direction of bending of red flexbar. Sukh cont to benefit from passive ROM of the R hand; cont to execute finger PROM w/ wrist in slight flex w/ forearm pronated. Rec re-visiting balloon volleyball w/ vertically orientated cane w/ balloon thrown to L and R of body. Continued outpatient OT would be recommended to address attention to R UE, as well as revise/modify R UE home exercise program as needed. - Plan Therapy Recommendations Advance per Rehabilitation Protocol
--- NOTE | 2024-04-14 13:13 | OT.OP.TRT ---
Visit Care Team Role Provider Type Delfino Epstein MD Attending Provider Physician Family Provider Primary Care Provider Referring Provider Specialty: Family Practice Address: [address] [place] [address], [address], [address] Email: [email or web address] Occupational Therapy Treatment Note OT Outpatient Treatment Note - Adult Start: 12/23/23 11:21 Freq: Status: Active Protocol: Document 04/14/24 13:09 AMS (Rec: 04/14/24 13:13 AMS [id number]) OT Outpatient Adult Treatment Note Session Time Visit Start Time 11:15 Visit Stop Time 11:58 Visit Information Visit Number 04/13 Plan of Care Dates 03/09/24 - 05/18/24 Insurance Information [facility] Setting Treatment Setting Outpatient Care Visit Type Note Type Treatment Note General Information General Information Sukh is 68 years of age and was referred to outpatient OT secondary to CVA. PMH: Significant for antiphospholipid antibody syndrome; aphasia; CAD; cardiac arrhythmia; CVA involving L MCA territory ; chronic atrial flutter; chronic systolic CHF; CAD; DM ; DVT; essential HTN; hyperlipidemia; NC; pacemaker; RA; stenosis of left carotid artery; systolic heart failure . - Subjective Identification Type Name Identification Reconciled With Medical Record Observations Sukh was seen 1:1 for OT session. Patient/Caregiver Compliance with Home Good Exercise Program Comment w/ family and caregiver support - Objective Objective Measurements Please refer to below for progress towards meeting established OT goals. 02/17/24 = Nodule present slightly distal/radial of the L 5th PIPJ; nodule present ulnarly of the L 4th PIPJ. Denied pain/discomfort w/ palpation/pressing 4th/5th digits together/adduction. 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 04/03/23 = Able to copy his first name utilizing writing utensil positioned in the L hand; copying took increased time and there was some ' shakiness' observed in curves and lines, however, he sequenced letters appropriately and name had good letter spacing and sizing and was legible. Sukh was also able to connect numbers ( 1-10) in order without errors and without support from clinician. 05/16/20= avg 8.0 pounds of force w/ R wrecking crane engine operator dynamometer II testing. French Binder Goals 1. Sukh will be modified independent with execution of home exercise program with the support of his family and caregivers utilizing written and visual instructions as needed. 2. Sukh will be demonstrating increased attention to the R UE; this will be evidenced by Sukh's indication/family's report that he is actively incorporating and/or attending to the R UE in 2-3 different tasks/activities in the home environment (e.g., bimanual coordination, positioning of R UE on arm rest). - Treatment 5 Descriptor Bimanual activities. Cane w/ beachball. Modified baseball batting ( seated). L handed batting approach. Modified cane w/ balloon. Front forward sitting. 2 handed approach. Exercises 9 Descriptor PROM of R hand/wrist. Passive hook fist. Passive duck. Passive digit abd. Passive R thumb ROM. Abduction . Flex/ext. Opposition. Passive wrist ext. 6 Descriptor Sh ROM. Modified resisted (use of TT). 2# DB positioned in L hand. TT Sh flex. 3 x 10 AROM. TT Sh ext. 3 x 10 AROM. TT Sh add/abd. 3 x 10 AROM. TT diagonal. 3 x 10 AROM. TT circular. 3 x 10. AROM. CCW . 2 Descriptor Red flex bar. Bending of flex bar 1 x 20; x 5, 5 sec hold. - Assessment Assessment of Improvement Sukh cont to do well w/ TT towel based range of motion of R UE exercises; use of 2# DB positioned in L hand (* preference previously indicated for 2# DB vs 3# DB). R hand positioned inferiorly to L hand w/ L handed approach to batting and w/ balloon volleyball w/ vertically oriented cane. Increased difficulty hitting balloon tossed to R side of body in sitting w/ balloon volleyball. Min phys support provided to assist w/ grasping of red flexbar. (+) slightly overall decreased reps w/ red flex bar compared to previous treatment session. Sukh cont to benefit from passive ROM of the R hand; cont to execute finger PROM w/ wrist in slight flex w/ forearm pronated. Continued outpatient OT would be recommended to address attention to R UE, as well as revise/modify R UE home exercise program as needed. - Plan Therapy Recommendations Advance per Rehabilitation Protocol
--- NOTE | 2024-04-14 13:15 | OT.OP.TRT ---
Visit Care Team Role Provider Type Delfino Epstein MD Attending Provider Physician Family Provider Primary Care Provider Referring Provider Specialty: Family Practice Address: [address] [place] [address], [address], [address] Email: [email or web address] Occupational Therapy Treatment Note OT Outpatient Treatment Note - Adult Start: 12/23/23 11:21 Freq: Status: Active Protocol: Document 04/14/24 13:09 AMS (Rec: 04/14/24 13:13 AMS [id number]) OT Outpatient Adult Treatment Note Session Time Visit Start Time 11:15 Visit Stop Time 11:58 Visit Information Visit Number 04/13 Plan of Care Dates 03/09/24 - 05/18/24 Insurance Information [facility] Setting Treatment Setting Outpatient Care Visit Type Note Type Treatment Note General Information General Information Sukh is 68 years of age and was referred to outpatient OT secondary to CVA. PMH: Significant for antiphospholipid antibody syndrome; aphasia; CAD; cardiac arrhythmia; CVA involving L MCA territory ; chronic atrial flutter; chronic systolic CHF; CAD; DM ; DVT; essential HTN; hyperlipidemia; ME; pacemaker; RA; stenosis of left carotid artery; systolic heart failure . - Subjective Identification Type Name Identification Reconciled With Medical Record Observations Sukh was seen 1:1 for OT session. Patient/Caregiver Compliance with Home Good Exercise Program Comment w/ family and caregiver support - Objective Objective Measurements Please refer to below for progress towards meeting established OT goals. 02/17/24 = Nodule present slightly distal/radial of the L 5th PIPJ; nodule present ulnarly of the L 4th PIPJ. Denied pain/discomfort w/ palpation/pressing 4th/5th digits together/adduction. 01/27/24 = 11.0# of force R regulatory affairs assistant w/ dynamometer II regulatory affairs assistant strength test. 04/03/23 = Able to copy his first name utilizing writing utensil positioned in the L hand; copying took increased time and there was some ' shakiness' observed in curves and lines, however, he sequenced letters appropriately and name had good letter spacing and sizing and was legible. Sukh was also able to connect numbers ( 1-10) in order without errors and without support from clinician. 05/16/20= avg 8.0 pounds of force w/ R regulatory affairs assistant dynamometer II testing. Green Inspector Goals 1. Sukh will be modified independent with execution of home exercise program with the support of his family and caregivers utilizing written and visual instructions as needed. 2. Sukh will be demonstrating increased attention to the R UE; this will be evidenced by Sukh's indication/family's report that he is actively incorporating and/or attending to the R UE in 2-3 different tasks/activities in the home environment (e.g., bimanual coordination, positioning of R UE on arm rest). - Treatment 5 Descriptor Bimanual activities. Cane w/ beachball. Modified baseball batting ( seated). L handed batting approach. Modified cane w/ balloon. Front forward sitting. 2 handed approach. Exercises 9 Descriptor PROM of R hand/wrist. Passive hook fist. Passive duck. Passive digit abd. Passive R thumb ROM. Abduction . Flex/ext. Opposition. Passive wrist ext. 6 Descriptor Sh ROM. Modified resisted (use of TT). 2# DB positioned in L hand. TT Sh flex. 3 x 10 AROM. TT Sh ext. 3 x 10 AROM. TT Sh add/abd. 3 x 10 AROM. TT diagonal. 3 x 10 AROM. TT circular. 3 x 10. AROM. CCW . 2 Descriptor Red flex bar. Bending of flex bar 1 x 20; x 5, 5 sec hold. - Assessment Assessment of Improvement Sukh cont to do well w/ TT towel based range of motion of R UE exercises; use of 2# DB positioned in L hand (* preference previously indicated for 2# DB vs 3# DB). R hand positioned inferiorly to L hand w/ L handed approach to batting and w/ balloon volleyball w/ vertically oriented cane. Increased difficulty hitting balloon tossed to R side of body in sitting w/ balloon volleyball. Min phys support provided to assist w/ grasping of red flexbar. (+) slightly overall decreased reps w/ red flex bar compared to previous treatment session. Sukh cont to benefit from passive ROM of the R hand; cont to execute finger PROM w/ wrist in slight flex w/ forearm pronated. Some discomfort/ guarding noted proximally of R UE w/ dowel and theraband exercise (vertically oriented vs horizontally discomfort primarily observed). Continued outpatient OT would be recommended to address attention to R UE, as well as revise/modify R UE home exercise program as needed. - Plan Therapy Recommendations Advance per Rehabilitation Protocol
--- NOTE | 2024-04-21 15:09 | OT.OP.TRT ---
Visit Care Team Role Provider Type Delfino Epstein MD Attending Provider Physician Family Provider Primary Care Provider Referring Provider Specialty: Family Practice Address: [address] [place] [address], [address], [place], [address] Email: [email or web address] Occupational Therapy Treatment Note OT Outpatient Treatment Note - Adult Start: 12/23/23 11:21 Freq: Status: Active Protocol: Document 04/21/24 15:01 [facility] (Rec: 04/21/24 15:09 [facility] [id number]) OT Outpatient Adult Treatment Note Session Time Visit Start Time 10:30 Visit Stop Time 11:10 Visit Information Visit Number 05/13 Plan of Care Dates 03/09/24 - 05/18/24 Insurance Information [facility] Setting Treatment Setting Outpatient Care Visit Type Note Type Treatment Note General Information General Information Sukh is 68 years of age and was referred to outpatient OT secondary to CVA. PMH: Significant for antiphospholipid antibody syndrome; aphasia; CAD; cardiac arrhythmia; CVA involving L MCA territory ; chronic atrial flutter; chronic systolic CHF; CAD; DM ; DVT; essential HTN; hyperlipidemia; ND; pacemaker; RA; stenosis of left carotid artery; systolic heart failure . - Subjective Identification Type Name Identification Reconciled With Medical Record Observations Sukh was seen 1:1 for OT session. Patient/Caregiver Compliance with Home Good Exercise Program Comment w/ family and caregiver support - Objective Objective Measurements Please refer to below for progress towards meeting established OT goals. 02/17/24 = Nodule present slightly distal/radial of the L 5th PIPJ; nodule present ulnarly of the L 4th PIPJ. Denied pain/discomfort w/ palpation/pressing 4th/5th digits together/adduction. 01/27/24 = 11.0# of force R customer experience leader w/ dynamometer II customer experience leader strength test. 04/03/23 = Able to copy his first name utilizing writing utensil positioned in the L hand; copying took increased time and there was some ' shakiness' observed in curves and lines, however, he sequenced letters appropriately and name had good letter spacing and sizing and was legible. Sukh was also able to connect numbers ( 1-10) in order without errors and without support from clinician. 05/16/20= avg 8.0 pounds of force w/ R customer experience leader dynamometer II testing. Gear Hobber Set Up Operator Goals 1. Sukh will be modified independent with execution of home exercise program with the support of his family and caregivers utilizing written and visual instructions as needed. 2. Sukh will be demonstrating increased attention to the R UE; this will be evidenced by Sukh's indication/family's report that he is actively incorporating and/or attending to the R UE in 2-3 different tasks/activities in the home environment (e.g., bimanual coordination, positioning of R UE on arm rest). - Treatment 5 Descriptor Bimanual activities. Cane w/ beachball. Modified baseball batting ( seated). L handed batting approach. Modified cane w/ balloon. Front forward sitting. 2 handed approach. Exercises 9 Descriptor PROM of R hand/wrist. Passive hook fist. Passive duck. Passive digit abd. Passive R thumb ROM. Abduction . Flex/ext. Opposition. Passive wrist ext. 6 Descriptor Sh ROM. Modified resisted (use of TT). 2# DB positioned in L hand. TT Sh flex. 3 x 10 AROM. TT Sh ext. 3 x 10 AROM. TT Sh add/abd. 3 x 10 AROM. TT diagonal. 3 x 10 AROM. TT circular. 3 x 10. AROM. CCW . 2 Descriptor Red flex bar. Bending of flex bar 1 x 30; x 5, 5 sec hold. Use of dycem/ support inferior to R handed grasp to ensure contralateral stabilization. - Assessment Assessment of Improvement Sukh cont to do well w/ TT towel based range of motion of R UE exercises; use of 2# DB positioned in L hand (* preference previously indicated for 2# DB vs 3# DB). R hand positioned inferiorly to L hand w/ L handed approach to batting and w/ balloon volleyball w/ vertically oriented cane. Min phys support provided to assist w/ initial grasping of red flexbar; trialed dycem w/ some success, however, ultimately assisted w/ stabilzation of flex bar inferiorly to R hand to prevent release and subsequent recoiling/ displacement of R hand. Sukh cont to benefit from passive ROM of the R hand; cont to execute finger PROM w/ wrist in slight flex w/ forearm pronated. Some discomfort/ guarding noted proximally of R UE w/ dowel and theraband exercise (vertically oriented vs horizontally discomfort primarily observed). Continued outpatient OT would be recommended to address attention to R UE, as well as revise/modify R UE home exercise program as needed. - Plan Therapy Recommendations Advance per Rehabilitation Protocol
--- NOTE | 2024-04-28 12:14 | OT.OP.TRT ---
Visit Care Team Role Provider Type Delfino Epstein MD Attending Provider Physician Family Provider Primary Care Provider Referring Provider Specialty: Family Practice Address: [address] [place] [address], [address], [place], [address] Email: [email or web address] Occupational Therapy Treatment Note OT Outpatient Treatment Note - Adult Start: 12/23/23 11:21 Freq: Status: Active Protocol: Document 04/28/24 12:08 [facility] (Rec: 04/28/24 12:14 AMS [id number]) OT Outpatient Adult Treatment Note Session Time Visit Start Time 11:15 Visit Stop Time 11:58 Visit Information Visit Number 06/13 Plan of Care Dates 03/09/24 - 05/18/24 Insurance Information [facility] Setting Treatment Setting Outpatient Care Visit Type Note Type Treatment Note General Information General Information Sukh is 68 years of age and was referred to outpatient OT secondary to CVA. PMH: Significant for antiphospholipid antibody syndrome; aphasia; CAD; cardiac arrhythmia; CVA involving L MCA territory ; chronic atrial flutter; chronic systolic CHF; CAD; DM ; DVT; essential HTN; hyperlipidemia; NE; pacemaker; RA; stenosis of left carotid artery; systolic heart failure . - Subjective Identification Type Name Identification Reconciled With Medical Record Observations Sukh was mod I w/ ambulation and transfers utilizing quad cane. Sukh was accompanied by his caregiver to treatment session. = Diele; Patient/Caregiver Compliance with Home Good Exercise Program Comment w/ family and caregiver support - Objective Objective Measurements Please refer to below for progress towards meeting established OT goals. 02/17/24 = Nodule present slightly distal/radial of the L 5th PIPJ; nodule present ulnarly of the L 4th PIPJ. Denied pain/discomfort w/ palpation/pressing 4th/5th digits together/adduction. 01/27/24 = 11.0# of force R brake assembler w/ dynamometer II brake assembler strength test. 04/03/23 = Able to copy his first name utilizing writing utensil positioned in the L hand; copying took increased time and there was some ' shakiness' observed in curves and lines, however, he sequenced letters appropriately and name had good letter spacing and sizing and was legible. Sukh was also able to connect numbers ( 1-10) in order without errors and without support from clinician. 05/16/20= avg 8.0 pounds of force w/ R brake assembler dynamometer II testing. Fpc Goals 1. Sukh will be modified independent with execution of home exercise program with the support of his family and caregivers utilizing written and visual instructions as needed. 2. Sukh will be demonstrating increased attention to the R UE; this will be evidenced by Sukh's indication/family's report that he is actively incorporating and/or attending to the R UE in 2-3 different tasks/activities in the home environment (e.g., bimanual coordination, positioning of R UE on arm rest). - Treatment 5 Descriptor Bimanual activities. Cane w/ beachball. Modified baseball batting ( seated). L handed batting approach. Modified cane w/ balloon. Front forward sitting. 2 handed approach. Exercises 9 Descriptor PROM of R hand/wrist. Passive hook fist. Passive duck. Passive digit abd. Passive R thumb ROM. Abduction . Flex/ext. Opposition. Passive wrist ext. 6 Descriptor Sh ROM. Modified resisted (use of TT). 2# DB positioned in L hand. TT Sh flex. 3 x 10 AROM. TT Sh ext. 3 x 10 AROM. TT Sh add/abd. 3 x 10 AROM. TT diagonal. 3 x 10 AROM. TT circular. 3 x 10. AROM. CCW . 2 Descriptor Red flex bar. Bending of flex bar 1 x 21; x 5, 5 sec hold. *No use of dycem; intermittent assist post rep - Assessment Assessment of Improvement Sukh cont to do well w/ TT towel based range of motion of R UE exercises; use of 2# DB positioned in L hand (* preference previously indicated for 2# DB vs 3# DB). R hand positioned inferiorly to L hand w/ L handed approach to batting and w/ balloon volleyball w/ vertically oriented cane. Min phys support provided to assist w/ initial grasping of red flexbar; intermittently provided assistance w/ stabilzation of flex bar inferiorly to R hand to prevent release and subsequent recoiling/displacement of R hand. Sukh cont to benefit from passive ROM of the R hand ; cont to execute finger PROM w/ wrist in slight flex w/ forearm pronated. Some discomfort/guarding noted proximally of R UE w/ dowel and theraband exercise ( vertically oriented vs horizontally discomfort primarily observed). Continued outpatient OT would be recommended to address attention to R UE, as well as revise/modify R UE home exercise program as needed. - Plan Therapy Recommendations Advance per Rehabilitation Protocol
--- NOTE | 2024-05-29 10:39 | OT.OP.DC ---
Visit Care Team Role Provider Type Delfino Epstein MD Attending Provider Physician Family Provider Primary Care Provider Referring Provider Address: [address] [place] [address], Suite [facility], [place], [address] Email: [email or web address] Outpatient OT Outpatient Adult Evaluation Start: 12/23/23 11:21 Freq: Status: Active Protocol: Document 12/23/23 11:21 AMS (Rec: 12/23/23 12:11 AMS [id number]) General Information - Adult Visit Information Plan of Care Dates 12/23/23 - 02/03/24 Insurance Information [facility]; *No limits PCY Session Time Visit Start Time 10:30 Visit Stop Time 11:13 Setting Treatment Setting Outpatient Care Visit Type Note Type Initial Evaluation Identification Identification Confirmed Yes Identification Confirmed By du Blevins Goals Treatment Treatment Attention. Active incorporation of R UE. Correction Goals Correction Goals 1. Sukh will be modified independent with execution of home exercise program with the support of his family and caregivers utilizing written and visual instructions as needed. 2. Sukh will be demonstrating increased attention to the R UE; this will be evidenced by Sukh's indication/family's report that he is actively incorporating and/or attending to the R UE in 2-3 different tasks/activities in the home environment (e.g., bimanual coordination, positioning of R UE on arm rest). Assessment/Plan Assessment Treatment Assessment Sukh is 68 years of age and was referred to outpatient OT secondary to CVA. PMH: Significant for antiphospholipid antibody syndrome; aphasia; CAD; cardiac arrhythmia; CVA involvign L MCA territory ; chronic atrial flutter; chronic systolic CHF; CAD; DM ; DVT; essential HTN; hyperlipidemia; AK; pacemaker; RA; stenosis of left carotid artery; systolic heart failure . No recent falls reported, although, did roll out of bed on 2 occasions w/ need for assist from Adelfo w/ fall recovery. Sukh was accompanied by his Felicity and Svetlana who assists with Sukh's care. Sukh ambulated to treatment session w/ quad cane; Felicity reports that he has a standard w/c w/ R randa arm rest/table that they received post- rehab facility stay. She would like to consider getting Sukh an electic w/c to support his independence within the community. He is actively doffing UB clothing, including unbuttoning. No complaints/ reports of pain/discomfort with dressing or bathing. There is a concern for R sided neglect; although, good active incorporation and grasping/releasing the golf club requiring no assistance on this date (w/ no cueing). Sukh also shakes his brother 's hand w/ R. Sukh does not wear g/h subluxation sling and /or UE splint/brace. (+) noted neglect of R UE. -47 degrees active R elbow ext; 13 degrees active R elbow flex; 25 degrees active R sh flex; 5 degrees active R sh ext; 10 degrees active R sh abd. Able to passively extend MP, PIP, and DIPJ of digits 2-5 to neutral. Outpatient OT to address attention to R UE, as well as revisit R UE home exercise program. Plan Length of treatment (weeks) 6 Plan of Care Start Date 12/23/23 Plan of Care End Date 02/03/24 Treatment Frequency Once a Week Therapeutic Contents Active Range of Motion, Adaptive Equipment Education, Functional Activities,Home Exercise Program,Joint Protection,Manual Therapy, Education,Neurodevelopment Treatment,Neuromuscular Re- Education,Self-Care,Stretching /Flexibility Activities, Therapeutic Activities, Therapeutic Exercises, Modalities Additional Types of Modalities Heat/Ice Functional Wrist/Hand Scan Hand Side Sensory Assessment Sensory Profile2 OT Outpatient Treatment Note - Adult Start: 12/23/23 11:21 Freq: Status: Active Protocol: Document 05/29/24 10:36 [facility] (Rec: 05/29/24 10:39 [facility] [id number]) OT Outpatient Adult Treatment Note Visit Information Visit Number 06/13 Plan of Care Dates 03/09/24 - 05/18/24 Insurance Information [facility] Setting Treatment Setting Outpatient Care Visit Type Note Type Discharge Summary General Information General Information Sukh is 68 years of age and was referred to outpatient OT secondary to CVA. PMH: Significant for antiphospholipid antibody syndrome; aphasia; CAD; cardiac arrhythmia; CVA involving L MCA territory ; chronic atrial flutter; chronic systolic CHF; CAD; DM ; DVT; essential HTN; hyperlipidemia; AK; pacemaker; RA; stenosis of left carotid artery; systolic heart failure . - Subjective Observations Sukh has not been seen in the outpatient setting by OT since 04/28/24 and outpatient OT POC on 05/18/24; thus, recommend d/c from outpatient OT at this time and re-evaluate as deemed appropriate by PCP w/ receipt of new OT referral. - Objective Objective Measurements Please refer to below for progress towards meeting established OT goals. 02/17/24 = Nodule present slightly distal/radial of the L 5th PIPJ; nodule present ulnarly of the L 4th PIPJ. Denied pain/discomfort w/ palpation/pressing 4th/5th digits together/adduction. 01/27/24 = 11.0# of force R generalist w/ dynamometer II generalist strength test. 04/03/23 = Able to copy his first name utilizing writing utensil positioned in the L hand; copying took increased time and there was some ' shakiness' observed in curves and lines, however, he sequenced letters appropriately and name had good letter spacing and sizing and was legible. Sukh was also able to connect numbers ( 1-10) in order without errors and without support from clinician. 05/16/20= avg 8.0 pounds of force w/ R generalist dynamometer II testing. Correction Goals D/C ALL GOALS OF 05/29/24 1. Sukh will be modified independent with execution of home exercise program with the support of his family and caregivers utilizing written and visual instructions as needed. 2. Sukh will be demonstrating increased attention to the R UE; this will be evidenced by Sukh's indication/family's report that he is actively incorporating and/or attending to the R UE in 2-3 different tasks/activities in the home environment (e.g., bimanual coordination, positioning of R UE on arm rest). - - Assessment Assessment of Improvement Sukh has not been seen in the outpatient setting by OT since 04/28/24 and outpatient OT POC on 05/18/24; thus, recommend d/c from outpatient OT at this time and re-evaluate as deemed appropriate by PCP w/ receipt of new OT referral. - Plan Therapy Recommendations Discharge from Occupational Therapy
== END 2024-06-02 10:46 | disposition home or self-care (01) ==
LOC: OT 11:15
PROVIDERS: Family Provider Family Medicine; PCP Family Medicine; Referring Provider Family Medicine; Visit Provider Family Medicine
DX: I69.351 Hemiplegia and hemiparesis following cerebral infarction affecting right dominant side (principal); R53.1 Weakness; Z76.89 Persons encountering health services in other specified circumstances
CPT/HCPCS: 97110; 97165; 97530

== ENCOUNTER → 2024-05-11 08:47 | Outpatient (CLI) | payer MEDICARE, SELFPAY ==
[2019-09-02 12:00] VITALS: BMI 23.4
--- NOTE | 2024-05-11 08:47 | DI.RAD.S_ITS ---
PROCEDURE: [place] BARIUM SWALLOW W SPEECH INDICATIONS: dysphagia COMPARISON: TECHNIQUE: Examination was conducted in conjunction with speech pathology per standard protocol. In the lateral projection, filming was performed of the patient swallowing. AP projection filming may also be performed with patient swallowing. COMPARISON: [facility], , [place] BARIUM SWALLOW W SPEECH, 12/16/2019, 14:06. FINDINGS: Function: Weak swallowing motion is noted. Transient penetration during swallowing of thin liquid is noted with no improvement use in chin-tuck technique. No aspiration is seen. No pathologic vallecular pooling. Morphology: No cricopharyngeal bar is identified. No cervical esophageal webs. No Zenker's diverticulum. No strictures. IMPRESSION: Weak swallowing motion. Transient penetration during swallowing of thin liquid area please correlate with speech pathology nodes for additional findings. Dictated by: Faustino Valle M.D. on 05/11/2024 at 12:23 Approved by: Faustino Valle M.D. on 05/11/2024 at 12:25
--- NOTE | 2024-05-11 15:02 | ST.SWALLOW ---
Visit Care Team Role Provider Type Delfino Epstein MD Attending Provider Physician Family Provider Primary Care Provider Referring Provider Specialty: Family Practice Address: [address] [place] [address], [address], [place], [address] Email: [email or web address] Modified Barium Swallow Study CLERICAL SPECIALIST Modified Barium Swallow Study Start: 05/11/24 13:28 Freq: Status: Active Protocol: Document 05/11/24 13:42 LNK (Rec: 05/11/24 15:02 LNK [id number]) Modified Barium Swallow Study Total Time Visit Start Time 09:00 Visit Stop Time 19:40 Total Visit Minutes [address] Epstein Reason for Referral dysphagia Setting Setting Outpatient Care Patient Information Identification Type Name,Date of Patient History Pt was seen for a Modified Barium Swallow Study at the referral of Dr. Epstein. This CLERICAL SPECIALIST is familiar with the pt having seen him for speech therapy and swallowing in the past. Pt had an MBSS in December 2019 that indicated: significant pharyngeal pooling , which was difficult to control, weak overall control within the pharynx: minimal pharyngeal constriction, no epiglottal inversion, increasing premature spillage into the pharynx and a lot of pharyngeal pooling. His risk for aspiration increased as a meal continues. Recommendations included small meals more often in the day to reduce the effort and thereby the aspiration risk. It appeared that as the MBSS continued, pt's swallow was getting weaker. Pt has PMH that includes CVA, hemiparesis, aphasia, IDDM2 Subjective Observations Pt was seated in the fluoroscopy chair with directions and procedures described for him. He indicated he understood and agreed to proceed. Patient Positioning Position View Lat-A/P Imaging Lateral View Textures Administered Trials Presented Thin Liquid via Spoon (IDDSI 0 ),Thin Liquid via Cup (IDDSI 0 ),Mildly Thick Liquid via Spoon (IDDSI 2),Extremely Thick Liquid via Spoon (IDDSI 4),Minced & Moist (IDDSI 5), Regular (IDDSI 7) Barium Tablet Yes The IDDSI Framework Protocol: IDDSI.1 Oral Impairment Source: The Modified Barium Swallow Impairment Profile (MBSImP??) Lip Closure Escape from interlab.space/lat .junct.;no ext. beyond vermilion border Tongue Control During Bolus Hold Cohesive bolus between tongue to palatal seal Bolus Preparation/Mastication Slow prolonged chewing/mashing with complete re-collection Bolus Transport/Lingual Motion Delayed initiation of tongue motion Initiation of Pharyngeal Swallow Bolus head at pyriforms Additional Oral Impairment Observations Pt has upper and lower dentures. Informal assessment indicated OM structures and function to be mildly impaired , especially the right side. Mastication is slow with more anterior munching that use of molars. May be related to fit of his dentures. Pharyngeal Impairment Source: The Modified Barium Swallow Impairment Profile (MBSImP??) Soft Palate Elevation No bolus between soft palate & pharyngeal wall Laryngeal Elevation Part.sup.move.thyroid cart/ part.approx.arytenoids to epiglot.petiole Anterior Hyoid Excursion Partial anterior movement Epiglottic Movement Complete inversion Pharyngeal Stripping Wave Present - diminished Pharyngoesophageal Segment Opening Complete distention & complete duration; no obstruction of flow Tongue Base Retraction Wide column of contrast/air betwn tongue base & post. pharyngeal wall Pharyngeal Residue Collection of residue within/ on pharyngeal structures Location Valleculae Additional Pharyngeal Impairment *Mild tongue base retraction Observations weakned with incomplete hyolaryngeal elevatoiion and movement. *Epiglottic inversion complete - pooling in valeculla *Reduced stripping of posterior wall, decreasing control of bolus *Pieces of solid trial (cookie ) were observing within bolus and remained on aerepiglottic folds after swallow - * Increased risk for aspirating small pieces of foods *Slow increase of pharyngeal weakness as MBSS progressed, requiring more than 1 swallow/ bolus A/P View Textures Administered Trials Presented Thin Liquid via Spoon (IDDSI 0 ),Thin Liquid via Cup (IDDSI 0 ) The IDDSI Framework Protocol: IDDSI.1 A/P View Observations Pharyngeal Contraction Complete Esophageal Clearance Upright Position Complete clearance; esophageal coating Vocal Fold Function Good Esophageal Function WFL Additional A-P Observations No retention or retroflow observed. Esophagus was noted to empty in a timely manner Clinical Impressions Findings *Mild to moderate oropharyngeal dysphagia with increased weakness as MBSS progressed. *Small bites and sips were safely tolerated - pt's stated pt likes to take large bites at home, increasing aspiration risk *Pt safely tolerated all trials without s/sx aspiration *Trials were presented slowly and in single portions, with the the exception of consecutive swallows of liquids *Pt's reported that pt likes to take large bites of food eating quickly. It is likely that as a meal progresses, pt's swallow becomes weaker and there is a build up of food/liquids in pharynx/esophagus that may be aspirated or regurgitated. *Small bites/sips are recommended to allw time for boluses to transition through the pharynx to the stomach *Pt is currently receiving swallow therapy. Continued therapy is recommended to increase swallow safety and decrease aspiration risk Rehabilitation Potential Good Patient Appropriate for Therapy Yes Recommendations Diet Liquids Order Thin (IDDSI 0) Diet Order Minced & Moist (IDDSI 5) Medication Recommendation As Tolerated,Whole in Carrier, Crushed in Carrier Additional Dietary Needs No Straws,Encourage to Self- Feed,Reminders to Use Strategies Aspiration Precautions Recommended Precautions Upright at 90 Degrees,Frequent Rest Periods,Small Bites/Sips ,Liquids from Cup Additional Precautions Slow rate of intake -set utensils down between bites/ sips Treatment Plan Therapy Recommendations Outpatient Speech Therapy,Base of Tongue Exercises Therapy Strategy Recommendations Sitting Upright (90 deg),No Straw,Liquids from Cup,Small Bites and Sips Additional Strategies Recommended Use small spoon/fork to reduce the amount of food/spoonful Placement Recommendation After Discharge Outpatient Therapy
== END ==
PROVIDERS: Family Provider Family Medicine; PCP Family Medicine; Referring Provider Family Medicine; Visit Provider Family Medicine
DX: R13.10 Dysphagia, unspecified (principal); Z86.73 Personal history of transient ischemic attack (TIA), and cerebral infarction without residual deficits
CPT/HCPCS: 74230; 92611

== ENCOUNTER → 2024-05-13 10:52 | Outpatient (CLI) | payer MEDICARE, SELFPAY ==
[2019-09-02 12:00] VITALS: BMI 23.4
--- NOTE | 2024-05-13 10:54 | DI.RAD.S_ITS ---
PROCEDURE: XR CHEST 2V INDICATIONS: Pleural effusion follow up TECHNIQUE: 2 views of the chest were acquired. COMPARISON: [facility], CR, XR CHEST 2V, 04/01/2024, 10:55. [facility], CR, XR CHEST 1V, 03/14/2024, 10:27. FINDINGS: Surgical changes and devices: Left chest pacemaker/defibrillator present with 2 leads projecting over the heart.. Lungs and pleura: Bibasilar consolidation again seen representing pneumonia or subsegmental atelectasis. No pneumothorax. No large pleural effusion seen. Mediastinum: Mediastinal contours are otherwise unremarkable. Cardiac silhouette is obscured Bones and chest wall: Osteopenia IMPRESSION: No apparent change since prior study with bibasilar consolidations representing pneumonia or subsegmental atelectasis Dictated by: Adolph De Anda M.D. on 05/13/2024 at 12:50 Approved by: Adolph De Anda M.D. on 05/13/2024 at 12:56
--- NOTE | 2024-05-26 17:23 | DIAB.MNTFU ---
Follow-up Diabetes Medical Nutrition Therapy Assessment Name: Sukh Colvin Date: 05/13/24 Time: 1110a-12p Dx: Type II Diabetes Willy presents with spouse, Felicity, and caregiver, Svetlana. States they need more snack and meal ideas. Svetlana helps quite a bit with meal prep, so she is here today for education and input. Reports recent barium swallow and needing soft/moist textured foods. Dieyvonne worries about pb choking risk, though wants to give Willy more autonomy on foods. States they picked up glucagon tx. They are not completely clear on when to use this. Anthropometrics: Ht: 68 Wt: 170.5# 04/2024 at PCP Self-Monitoring Blood Glucose: Most of BG in goal with >70% in range. Though some minor increase in low in TIR, most of these seem r/t new sensor false lows. Today TIR: 1% very high 19% high 79% in range <1% low <1% very low Avmg/dl GMI 7.9% variations: 24.5% Last Visit TIR: <1% very high 17% high 82% in range 0% low Avmg/dl GMI 6.9% variations: 24.1% Diabetes Medications: 18u Glargine AM 0-2u Aspart (SSI)-- up to 4-5u prn 1000mg Metformin BID Pertinent Labs: HgA1c: 6.9% 01/2023 6.2% 02/2024 Past Medical History: (Last Reviewed 03/14/24 @ 10:18 by Annemarie Weems DO) Acute hyponatremia Antiphospholipid antibody syndrome Aphasia following cerebrovascular disease (01/27/15) CAD (coronary artery disease) Cardiac arrhythmia Cerebrovascular accident (CVA) involving left middle cerebral artery territory (09/01/15) Chronic atrial flutter (09/01/15) Chronic systolic congestive heart failure (09/01/15) Controlled insulin dependent diabetes mellitus Coronary artery disease involving [place] coronary artery of [place] heart without angina pectoris (09/01/15) CVA (cerebral vascular accident) Diabetes mellitus DVT (deep venous thrombosis) Essential hypertension (09/01/15) Facial laceration Hemiparesis affecting dominant side as late effect of cerebrovascular accident (01/27/15) History of stroke with residual deficit Right-sided neurological deficits Hyperglycemia Hyperlipidemia (09/01/15) Hyperlipidemia Myocardial infarction Pacemaker Rheumatoid arthritis Stenosis of left carotid artery (12/22/13) Systolic heart failure Type 2 diabetes mellitus Weakness Nutrition Rx: Carbohydrates: Meal: 30-45g Snack:15-30g Nutrition Diagnosis: Food and nutrition knowledge deficit r/t recent Barium swallow indicating need for change in food textures aeb pt report and barium swallow Intervention: This participant was very receptive. Provided appropriate educational handouts. Discussed the following topics: Blood sugar review and trends. Impact of food intake on results. Soft/moist snack ideas with paired CHo and protein Ways to change texture of pb prn breakfast and lunch ideas Created SMART goals for patient self-care and success. Goals: child care group leader Glucagon rx (RD messaged PCP)- met Try smoothies for lower appetite days- met Try new snacks- new Add avocado to smoothies- new Whip PB with milk- new Follow-up: MAXI FOSTER follow-up in 3-4 months per pt request. Offered prn f/u but Felicity would like to touch base again in a few months. Maria T Little RDN, CDCES Certified Diabetes Care and Brothel Keeper P: [phone] Thank you for this referral
== END ==
PROVIDERS: Family Provider Family Medicine; PCP Family Medicine; Referring Provider Family Medicine
DX: J90 Pleural effusion, not elsewhere classified (principal)
CPT/HCPCS: 71046

== ENCOUNTER 2024-06-21 00:57 | Emergency (ER) | payer MEDICARE, SELFPAY ==
[2019-09-02 12:00] VITALS: BMI 23.4
[2024-06-21 01:06] VITALS: BP 122/70; PULSE 80; RESP 18; TEMP 36.2; O2SAT 97; BMI 24.3
--- NOTE | 2024-06-21 01:15 | ED.GENADULT ---
HPI - General Adult General Chief complaint: Anxiety Stated complaint: Something stuck in throat... Time Seen by Provider: 06/21/24 01:02 Source: family Mode of arrival: Wheelchair History of Present Illness HPI narrative: Patient 68-year-old male history significant stroke with significant aphasia. Dysphagia, right-sided hemiparesis, atrial flutter, CAD, pacemaker diabetes presenting today with choking. states that he was fed dinner by the caregiver which was rice and some very small meat or chicken he started coughing and not being able to swallow afterwards. He frequently has swallowing issues. Mostly at night they try and keep him propped up there looking for a wedge but happened quite found 1. Patient now seems to be a lot better family at bedside also report that he now seems better. However they were worried with him going to bed they wanted to make sure he was okay. He is able to point in respond to some questions but is overall nonverbal. He overall appears comfortable. He is also working with speech therapy in regards to his significant dysphagia Related Data Home Medications Medication Instructions Recorded Confirmed multivitamin with minerals 1 tab PO DAILY ##0 06/22/19 04/27/24 lactobacillus combination no.9 4 4,000 mmu cells PO DAILY 03/25/23 04/27/24 billion cell capsule (Adult 50 Plus Probiotic) vitamin B complex (B 1 tab PO DAILY 03/25/23 04/27/24 Complex-Vitamin B12 tablet) Previous Rx's Medication Instructions Recorded tamsulosin 0.4 mg capsule 0.4 mg PO QPM #90 caps 07/20/19 ketoconazole 2 % topical cream 1 applic topical BID #60 grams 03/09/21 triamcinolone acetonide 0.1 % 1 applic topical BID #80 grams 03/09/21 topical cream nystatin 100,000 unit/gram topical 1 applic topical BID #60 grams 04/04/21 powder insulin syringe-needle U-100 0.3 #100 ea 01/08/22 mL 31 gauge x 516 (BD Insulin Syringe Ultra-Fine) cholecalciferol (vitamin D3) 125 125 mcg PO DAILY #90 caps 03/25/23 mcg (5,000 unit) capsule insulin glargine 100 unit/mL (3 See Rx Instructions .Route 04/19/23 mL) subcutaneous pen (Basaglar .COMPLEX #15 mL KwikPen U-100 Insulin) pen needle, diabetic 32 gauge x #150 ea 07/01/23 3/16 (Droplet Pen Needle) atorvastatin 20 mg tablet 20 mg PO ONCE PM #90 tabs 07/04/23 etanercept 50 mg/mL (1 mL) 50 mg SUBCUT QWEEK #3.92 mL 09/02/23 subcutaneous pen injector methotrexate sodium 2.5 mg tablet 20 mg (8 x 2.5 mg) PO QWEEK #12 09/30/23 tabs blood-glucose meter,continuous #1 ea 10/01/23 (Dexcom G6 Auto Body Repair Estimator) blood-glucose transmitter (Dexcom #1 ea 10/08/23 G6 Transmitter device) insulin aspart U-100 100 unit/mL See Rx Instructions .Route 11/13/23 subcutaneous solution (Novolog .COMPLEX #10 mL U-100 Insulin aspart) lisinopril 10 mg tablet 10 mg PO DAILY #90 tabs 11/18/23 sertraline 50 mg tablet 100 mg (2 x 50 mg) PO DAILY #180 11/18/23 tabs carvedilol 6.25 mg tablet 6.25 mg PO BID #180 tabs 03/16/24 dextrose 40 % oral gel 15 g PO Q15M PRN hypoglycemia 03/16/24 #112.5 grams blood-glucose sensor (Dexcom G6 #3 ea 03/31/24 Sensor device) Disabled Parking Permit See Rx Instructions .Route 04/27/24 .COMPLEX #1 ea glucagon 1 mg/0.2 mL subcutaneous 1 mg (0.2 mL) SUBCUT Q20M PRN 04/27/24 solution hypoglycemia #0.2 mL dabigatran etexilate 150 mg capsule 150 mg PO BID #180 caps 05/12/24 metformin 1,000 mg tablet 1,000 mg PO BID #180 tabs 05/12/24 folic acid 1 mg tablet 1 mg PO DAILY #90 tabs 05/18/24 Allergies Allergy/AdvReac Type Severity Reaction Status Date / Time polyethylene glycol 3350 Allergy Intermediate HIVES Verified 04/27/24 14:38 [From Miralax] amoxicillin Allergy Mild RASH Verified 04/27/24 14:38 erythromycin base Allergy Mild RASH Verified 04/27/24 14:38 famotidine Allergy Mild RASH Verified 04/27/24 14:38 niacin Allergy Mild RASH Verified 04/27/24 14:38 codeine AdvReac Mild NAUSEA Verified 04/27/24 14:38 Patient History Medical History Hyperglycemia Controlled insulin dependent diabetes mellitus CVA (cerebral vascular accident) Facial laceration Weakness Acute hyponatremia Rheumatoid arthritis History of stroke with residual deficit Diabetes mellitus Hyperlipidemia Antiphospholipid antibody syndrome Pacemaker Myocardial infarction Systolic heart failure DVT (deep venous thrombosis) CAD (coronary artery disease) Cardiac arrhythmia Chronic systolic congestive heart failure (09/01/15) Hyperlipidemia (09/01/15) Essential hypertension (09/01/15) Coronary artery disease involving [place] coronary artery of [place] heart without angina pectoris (09/01/15) Cerebrovascular accident (CVA) involving left middle cerebral artery territory (09/01/15) Chronic atrial flutter (09/01/15) Hemiparesis affecting dominant side as late effect of cerebrovascular accident (01/27/15) Aphasia following cerebrovascular disease (01/27/15) Stenosis of left carotid artery (12/22/13) Type 2 diabetes mellitus Surgical History AICD (automatic cardioverter/defibrillator) present History of angioplasty Presence of cardiac pacemaker Social History marital status: household members: spouse and caregiver Smoking Status: Never smoker alcohol intake: never substance use type: does not use Smoking Status: Never smoker alcohol intake frequency: 0-2 drinks per day Substance Use Type: does not use Exam Initial Vital Signs Initial Vital Signs: Vital Signs Temperature 97.2 F L 06/21/24 01:06 Pulse Rate 80 06/21/24 01:06 Respiratory Rate 18 06/21/24 01:06 Blood Pressure 122/70 06/21/24 01:06 Pulse Oximetry 97 06/21/24 01:06 Oxygen Delivery Method Room Air 06/21/24 01:06 GENERAL: Alert 68-year-old male and in no acute distress. HEENT: Head atraumatic,EOMI, pupils reactive, face symmetric, moist mucous membranes CARDIOVASCULAR: Regular rate and rhythm without murmurs, rubs or gallops. RESPIRATORY: Breath sounds equal bilaterally, no wheezes rales or rhonchi. No stridor managing her own secretions without difficulty appears comfortable ABDOMEN: Soft, nontender. Normoactive bowel sounds all 4 quadrants. No guarding or rebound. EXTREMITIES: Normal range of motion, no clubbing or edema. Neurovascularly intact NEUROLOGICAL: At baseline right-sided hemiparesis SKIN: Warm, dry, no laceration, no petechiae, no rashes or lesions. Course Vital Signs Vital signs: Vital Signs - 8 hr 06/21/ 01:06 Temperature 97.2 F L Pulse Rate 80 Respiratory Rate 18 Blood Pressure 122/70 Pulse Oximetry 97 Oxygen Delivery Method Room Air Medical Decision Making ECG Data Attestation: I personally reviewed and interpreted this ECG as follows: Prior ECG tracings: available for review (similar) Interpretation: Normal sinus rhythm rate 66 CO interval 196 QRS 140 QTC 430 MDM Narrative Medical decision making narrative: Patient is 68-year-old male who presents today with ongoing dysphagia and choking episode. According to notes he was last seen by PCP in April 2024 which complaining of similar symptoms. He has no respiratory distress lung sounds are clear no evidence of aspiration at this time. Patient is able to swallow liquids here in the ED without having recurrent vomiting or symptoms. EKG has been reviewed without ischemia appears to be paced No concern for acute coronary syndrome today According to family son and bedside report choking and difficulty swallowing he has ongoing issues with dysphagia followed by speech therapy this seems similar to previous episodes and consistent with history today Discharge Plan Departure Patient Disposition: Home Clinical Impression: Dysphagia Instructions: Esophageal Dysphagia Activity Restrictions/Additional Instructions: *You have been diagnosed with dysphagia *What to do: At this time continue with speech therapy please monitor for fever and cough *Continue to take medications as directed *Follow up with your primary care provider in 2-3 days or call [phone] *Return to ER if you should have any new, worsening or concerning symptoms Prescriptions: No Action nystatin 100,000 unit/gram powder 1 applic topical BID Qty: 60 1RF cholecalciferol (vitamin D3) 125 mcg (5,000 unit) capsule 125 mcg PO DAILY Qty: 90 0RF vitamin B complex [B Complex-Vitamin B12] Tablet 1 tab PO DAILY Adult 50 Plus Probiotic 4 billion cell capsule 4,000 mmu cells PO DAILY Rx Instructions: administer with a meal tamsulosin 0.4 mg capsule 0.4 mg PO QPM Qty: 90 3RF ketoconazole 2 % cream 1 applic topical BID Qty: 60 0RF triamcinolone acetonide 0.1 % cream 1 applic topical BID Qty: 80 0RF (DME) insulin syringe-needle U-100 [BD Insulin Syringe Ultra-Fine] 0.3 mL 31 gauge x 5/16 syringe See Rx Instructions .ROUTE .MEDSUPPLY Qty: 100 11RF Rx Instructions: As directed up to 5 times daily for insulin injections Basaglar KwikPen U-100 Insulin 100 unit/mL (3 mL) insulin pen See Rx Instructions .ROUTE .COMPLEX Qty: 15 2RF Dose Instruction: Inject 18 units subcutaneously as needed daily in the morning for blood sugar control. Rx Instructions: Inject 18 units subcutaneously as needed daily in the morning for blood sugar control. (DME) pen needle, diabetic [Droplet Pen Needle] 32 gauge x 3/16 needle See Rx Instructions .ROUTE .COMPLEX Qty: 150 11RF Dose Instruction: USE DIRECTED UP TO 5 TIMES DAILY Rx Instructions: USE DIRECTED UP TO 5 TIMES DAILY atorvastatin 20 mg tablet 20 mg PO ONCE PM Qty: 90 3RF etanercept 50 mg/mL (1 mL) pen injector 50 mg SUBCUT QWEEK Qty: 3.92 11RF Rx Instructions: mondays Auth approved. See scans 12/31/19 (DME) Dexcom G6 Transmitter Device See Rx Instructions .Route Qty: 1 11RF Rx Instructions: Use to test blood sugar daily as directed insulin aspart U-100 [Novolog U-100 Insulin aspart] 100 unit/mL solution See Rx Instructions .ROUTE .COMPLEX MDD 30U Qty: 10 3RF Dose Instruction: INJECT SUBCUTANEOUSLY UP TO THREE TIMES DAILY USING SLIDING SCALE. 150-200 1 U;200-250 2 U;250-300 3 U;300-350 4 U;350-400 5 U. Rx Instructions: INJECT SUBCUTANEOUSLY UP TO THREE TIMES DAILY USING SLIDING SCALE. 150-200 1 U;200-250 2 U;250-300 3 U;300-350 4 U;350-400 5 U. lisinopril 10 mg tablet 10 mg PO DAILY Qty: 90 3RF sertraline 50 mg tablet 100 mg PO DAILY Qty: 180 3RF carvedilol 6.25 mg tablet 6.25 mg PO BID Qty: 180 3RF dextrose 40 % gel 15 g PO Q15M PRN (Reason: hypoglycemia) Qty: 112.5 1RF Rx Instructions: until symptoms of low blood sugar are controlled (DME) Dexcom G6 Sensor Device See Rx Instructions .Route Qty: 3 11RF Rx Instructions: use to check blood sugar daily as directed metformin 1,000 mg tablet 1,000 mg PO BID Qty: 180 1RF dabigatran etexilate 150 mg capsule 150 mg PO BID Qty: 180 1RF folic acid 1 mg tablet 1 mg PO DAILY Qty: 90 3RF methotrexate sodium 2.5 mg tablet 20 mg PO QWEEK Qty: 12 11RF Rx Instructions: tuesdays (DME) Dexcom G6 Auto Body Repair Estimator Misc See Rx Instructions .Route Qty: 1 0RF Rx Instructions: As directed Disabled Parking Permit See Rx Instructions .ROUTE .COMPLEX Qty: 1 0RF Rx Instructions: I find this patient to be medically disabled and qualified for Disabled Parking as indicated, and signed, on the accompanying Disabled Parking Application for Individuals ; glucagon 1 mg/0.2 mL solution 1 mg SUBCUT Q20M PRN (Reason: hypoglycemia) Qty: 0.2 0RF Rx Instructions: until target blood sugar attained multivitamin with minerals Tablet 1 tab PO DAILY Qty: 0 Referrals: Delfino Epstein MD [Primary Care Provider] - Stand Alone Forms: Patient Portal/API
--- NOTE | 2024-06-21 01:22 | EKG_ITS ---
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
--- NOTE | 2024-06-21 01:26 | PC.NURSE ---
pt started choking tonight after eating rice for dinner, pt vomited a large amount of rice at present is awake and aler, normally does not speak but does understand resp even and unlabored no drooling, denies any pain
--- NOTE | 2024-06-21 01:28 | PC.NURSE ---
pt given jose a penelope to drink, drank without any difficulty, no vomiting
== END 2024-06-21 01:35 | disposition home or self-care (01) ==
PROVIDERS: Emergency Provider Emergency Medicine; Family Provider Family Medicine; PCP Family Medicine
DX: I69.391 Dysphagia following cerebral infarction (principal); R13.10 Dysphagia, unspecified; T17.928A Food in respiratory tract, part unspecified causing other injury, initial encounter; W44.F3XA Food entering into or through a natural orifice, initial encounter
CPT/HCPCS: 64450; 93005; 99281; 99282; 99283

== ENCOUNTER 2024-07-16 15:15 | Outpatient (RCR) | payer MEDICARE, SELFPAY ==
[2019-09-02 12:00] VITALS: BMI 23.4
--- NOTE | 2024-01-31 16:00 | PT.OIE ---
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 (01/31/24) Aphasia following unspecified cerebrovascular disease (01/31/24) Unsteadiness on feet (01/31/24) Other abnormalities of gait and mobility (01/31/24) Repeated falls (01/31/24) Weakness (01/31/24) Personal history of transient ischemic attack (TIA), and cerebral infarction without residual deficits (01/31/24) Past Medical History (Last Updated 12/12/21 @ 15:42 by Bernice Lopez PA-C) Acute hyponatremia Antiphospholipid antibody syndrome Aphasia following cerebrovascular disease (01/27/15) CAD (coronary artery disease) Cardiac arrhythmia Cerebrovascular accident (CVA) involving left middle cerebral artery territory (09/01/15) Chronic atrial flutter (09/01/15) Chronic systolic congestive heart failure (09/01/15) Controlled insulin dependent diabetes mellitus Coronary artery disease involving [place] coronary artery of [place] heart without angina pectoris (09/01/15) CVA (cerebral vascular accident) Diabetes mellitus DVT (deep venous thrombosis) Essential hypertension (09/01/15) Facial laceration Hemiparesis affecting dominant side as late effect of cerebrovascular accident (01/27/15) History of stroke with residual deficit Hyperglycemia Hyperlipidemia (09/01/15) Hyperlipidemia Myocardial infarction Pacemaker Rheumatoid arthritis Stenosis of left carotid artery (12/22/13) Systolic heart failure Type 2 diabetes mellitus Weakness Past Surgical History (Last Updated 06/22/19 @ 19:08 by Vidya Yao RN) AICD (automatic cardioverter/defibrillator) present History of angioplasty Presence of cardiac pacemaker Visit Care Team Role Provider Type Delfino Epstein MD Attending Provider Physician Family Provider Primary Care Provider Referring Provider Specialty: Family Practice Address: [address] [place] [address], [address], [facility] Email: [email or web address] Physical Therapy Initial Evaluation PT-OP-A Visit Information Start: 01/31/24 14:55 Freq: Status: Active Protocol: Document 01/31/24 13:45 DCW (Rec: 01/31/24 15:17 DCW [id number]) Out-Patient Physical Therapy Visit Information Visit Information Visit Type Initial Evaluation Visit Start Time 13:45 Visit Stop Time 14:30 Visit Number 1 Number of DOUGH CUTTER Visits 0 Evaluation Information Evaluation Date 01/31/24 PT-OP-B Current Condition Start: 01/31/24 14:55 Freq: Status: Active Protocol: Document 01/31/24 13:45 DCW (Rec: 01/31/24 17:08 DCW [id number]) Current Condition History of Current Condition Onset Date 2013 Current Complaints CVA, decrease in balance and activity tolerance History of Current Condition Pt is a 68 year old male who is 10 years s/p CVA which resulted in fairly severe right-sided hemiplegia. Pt has been seen at this facility multiple times off and on since his initial CVA to work on balance, gait, strength, activity tolerance, and functional mobility. Pt is largely non-verbal since his CVA. His attends today's evaluation reporting he has experienced a decline in function since he was last treated in PT (was last discharged 11/01/22). reports he was really struggling a few months ago, limited mobility and very limited energy, but they have recently had some changes to the treatment of his diabetes, which has helped. admits he still does not want to do a whole lot outside, and just seems to have a more difficult time moving around, appears to have greatly decreased confidence. Recently exhibiting slower gait. Also bring up possibility of getting w/c for longer outdoor activities, wondering about letter of medical necessity. PT-OP-C Subjective Start: 01/31/24 14:55 Freq: Status: Active Protocol: Document 01/31/24 13:45 DCW (Rec: 01/31/24 15:17 DCW [id number]) OP-PT Subjective Patient Comments Patient Comments Pt's reports pt has been noticeably slower. Notes he has not wanted to get up and move much, although admits that it was much worse a few months ago, and they've had some adjustments to his diabetes treatments, which has caused some improvements. also reports that he has been struggling more descending stairs, typically tried to descend backwards. Patient Questionnaires ABC- Activity Specific Balance Confidence Scale ABC Score 21.25% PT-OP-D Balance Start: 01/31/24 14:55 Freq: Status: Active Protocol: Document 01/31/24 13:45 DCW (Rec: 01/31/24 15:17 DCW [id number]) OP-PT Balance Assessment Standing Balance Static Standing Balance Ability Fair Dynamic Standing Balance Ability Fair Balance Tests Functional Reach Functional Reach Test 6 inches Functional Reach Impairment Rating 40 to <60% Impaired (Score 5-6 ) Romberg Romberg 30+ eyes open, 18 eyes closed Estrella Fall Scale Copyright Permission PT-OP-E Functional Tests Start: 01/31/24 14:55 Freq: Status: Active Protocol: Document 01/31/24 13:45 DCW (Rec: 01/31/24 15:17 DCW [id number]) Functional Tests 6 Minute Walk Test Distance 262' Device Used LBQC Comments 0.73 ft/sec 30 Second Sit to Stand Test Score x6 repetitions Comments UE use, uncontrolled descent Timed Up and Go (TUG) Score 44.32 Comments /c LBQC TUG Impairment Rating 100% Impaired (Score 20) PT-OP-G Mobility & Gait Start: 01/31/24 14:55 Freq: Status: Active Protocol: Document 01/31/24 13:45 DCW (Rec: 01/31/24 16:50 DCW [id number]) OP Gait Assessment Gait Gait Assistance Required: Standby Assistance Distance (Feet) 262 Assistive Devices Assistive Device Gait Belt,Large Based Quad Cane Gait Deviations General Gait Pattern Antalgic,Ataxic,Decreased Stride Length,Decreased Feet Clearance,Flexed Trunk,Lateral Trunk Lean,Step-to Gait Factors Limiting Gait Function Factors Limiting Gait Function Decreased Activity Tolerance, Decreased Strength,Difficulty Following Directions, Incoordination,Poor Balance, Poor Safety Awareness Stair Climbing Evaluation Evaluation Level of Assist On Stairs Standby Assistance Devices Stair Climbing Assistive Devices Left Railing,Right Railing Technique/Endurance Stair Climbing Direction Ascend and Descend Stair Climbing Technique Step to Step PT-OP-M Strength Start: 01/31/24 14:55 Freq: Status: Active Protocol: Document 01/31/24 13:45 DCW (Rec: 01/31/24 16:50 DCW [id number]) Hip Strength Hip Manual Muscle Testing Right Flexion (L2) 2+ Poor+ Abduction 2- Poor- Adduction 2+ Poor+ External Rotation 0 Zero Internal Rotation 0 Zero Left Flexion (L2) 4- Good- Abduction 4- Good- Adduction 4- Good- External Rotation 4+ Good+ Internal Rotation 4+ Good+ Knee Strength Knee Manual Muscle Testing Right Flexion (S2) 1 Trace Extension (L3) 3- Fair- Left Flexion (S2) 5 Normal Extension (L3) 5 Normal PT-OP-T Assessment and Plan Start: 01/31/24 14:55 Freq: Status: Active Protocol: Document 01/31/24 13:45 DCW (Rec: 01/31/24 17:08 DCW [id number]) Physical Therapy Assessment Rehab Potential Rehabilitation Potential Fair Evaluation Complexity Number of Personal Factors/Comorbidities 3 or More Number of Body Systems Impaired 4 or More Clinical Presentation at Evaluation Unstable Impairments Impairments Activity Tolerance,Balance, Coordination,Functional Activities,Functional Mobility ,Gait,ROM,Soft Tissue Mobility ,Strength,Tone,Transfers Goals Two Impairment Pt ambulates 262 feet during his 6MWT, for a gait speed of 0.73 ft/sec Director [facility] Goal (LTG) Pt to complete a 6MWT using a LBQC to ambulate >400', demonstrating an improved gait with a more efficient use of his AD One Impairment Pt does not have an appropriate home exercise program Short Term Goal (STG) Pt to be independent and compliant with an appropriate HEP STG Duration 03/02/24 Assessment Summary Assessment Pt presents with signs and symptoms consistent with sequela 10 years s/p CVA, which caused right-sided hemiplegia. Pt has experienced a decline in function over the past ~15 months since discharge from prior physical therapy. Pt exhibits poor standing and walking balance, decreased confidence, decreased activity tolerance, decreasing meenakshi, limitations on stairs, and right-sided weakness. Pt will likely benefit from skilled therapeutic intervention in an effort to improve gait, balance, activity tolerance, functional mobility, and strength. Physical Therapy Plan Frequency and Duration Frequency of Treatment 2x/Week Plan of Care Start Date 01/31/24 Plan of Care End Date 04/30/24 Therapeutic Interventions Therapeutic Interventions Balance Training,Gait Training ,Home Exercise Program,Manual Therapy,Neuromuscular Re- education,Patient/Caregiver Education,Self-Care/Home Management,Soft Tissue Mobilization,Therapeutic Activities,Therapeutic Exercises,Vestibular Rehabilitation,Wheelchair Management Next Visit Focus/Plan Next Note Type Treatment Note Next Visit Plan Gait training, strengthening, activity tolerance
--- NOTE | 2024-01-31 16:00 | PT.OPPOC ---
Physical, Occupational & Speech Therapy At [facility] 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 (01/31/24) Aphasia following unspecified cerebrovascular disease (01/31/24) Unsteadiness on feet (01/31/24) Other abnormalities of gait and mobility (01/31/24) Repeated falls (01/31/24) Weakness (01/31/24) Personal history of transient ischemic attack (TIA), and cerebral infarction without residual deficits (01/31/24) Visit Care Team Role Provider Type Delfino Epstein MD Attending Provider Physician Family Provider Primary Care Provider Referring Provider Specialty: [facility] Address: [address] [place] [address], [address], [facility] Email: [email or web address] Plan Of Care PT-OP-T Assessment and Plan Start: 01/31/24 14:55 Freq: Status: Active Protocol: Document 01/31/24 13:45 DCW (Rec: 01/31/24 17:08 DCW [id number]) Physical Therapy Assessment Rehab Potential Rehabilitation Potential Fair Evaluation Complexity Number of Personal Factors/Comorbidities 3 or More Number of Body Systems Impaired 4 or More Clinical Presentation at Evaluation Unstable Impairments Impairments Activity Tolerance,Balance, Coordination,Functional Activities,Functional Mobility ,Gait,ROM,Soft Tissue Mobility ,Strength,Tone,Transfers Goals Two Impairment Pt ambulates 262 feet during his 6MWT, for a gait speed of 0.73 ft/sec Chisel Worker Goal (LTG) Pt to complete a 6MWT using a LBQC to ambulate >400', demonstrating an improved gait with a more efficient use of his AD One Impairment Pt does not have an appropriate home exercise program Short Term Goal (STG) Pt to be independent and compliant with an appropriate HEP STG Duration 03/02/24 Assessment Summary Assessment Pt presents with signs and symptoms consistent with sequela 10 years s/p CVA, which caused right-sided hemiplegia. Pt has experienced a decline in function over the past ~15 months since discharge from prior physical therapy. Pt exhibits poor standing and walking balance, decreased confidence, decreased activity tolerance, decreasing meenakshi, limitations on stairs, and right-sided weakness. Pt will likely benefit from skilled therapeutic intervention in an effort to improve gait, balance, activity tolerance, functional mobility, and strength. Physical Therapy Plan Frequency and Duration Frequency of Treatment 2x/Week Plan of Care Start Date 01/31/24 Plan of Care End Date 04/30/24 Therapeutic Interventions Therapeutic Interventions Balance Training,Gait Training ,Home Exercise Program,Manual Therapy,Neuromuscular Re- education,Patient/Caregiver Education,Self-Care/Home Management,Soft Tissue Mobilization,Therapeutic Activities,Therapeutic Exercises,Vestibular Rehabilitation,Wheelchair Management Next Visit Focus/Plan Next Note Type Treatment Note Next Visit Plan Gait training, strengthening, activity tolerance Plan of Care Dates Plan of Care Start Date 01/31/24 Plan of Care End Date 04/30/24 Electronically Signed by: Jefferson Ceron, PT 02/03/24 0936 If you are in agreement with this Plan of Care, please return a signed and dated copy. I have reviewed this Plan of Care and certify that the skilled therapy services above are required to meet the patient?s needs. Physician Signature Date Printed Name and Credentials Clinical Instructor Signature Printed Name and Credentials
--- NOTE | 2024-02-04 12:00 | PT.OTN ---
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 (02/04/24) Aphasia following unspecified cerebrovascular disease (02/04/24) Unsteadiness on feet (02/04/24) Other abnormalities of gait and mobility (02/04/24) Repeated falls (02/04/24) Weakness (02/04/24) Personal history of transient ischemic attack (TIA), and cerebral infarction without residual deficits (02/04/24) Physical Therapy Treatment Note PT-OP-A Visit Information Start: 01/31/24 14:55 Freq: Status: Active Protocol: Document 02/04/24 11:15 DCW (Rec: 02/04/24 12:00 DCW [id number]) Out-Patient Physical Therapy Visit Information Visit Information Visit Type Treatment Note Visit Start Time 11:15 Visit Stop Time 12:00 Visit Number 2 Number of PLASTIC SHEETS 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 Pt has been seen at this facility multiple times off and on since his initial CVA to work on balance, gait, strength, activity toelrance, and functional mobility. Pt is largely non-verbal since his CVA. His attends today's evaluation reporting he has experienced a decline in function since he was last treated in PT (was last discharged 11/01/22). reports he was really struggling a few months ago, limited mobility and very limited energy, but they have recently had some changes to the treatment of his diabetes, which has helped. admits he still does not want to do a whole lot outside, and just seems to have a more difficult time moving around, appears to have greatly decreased confidence. Recently exhibiting slower gait. Also bring up possibility of getting w/c for longer outdoor activities, wondering about letter of medical necessity. PT-OP-C Subjective Start: 01/31/24 14:55 Freq: Status: Active Protocol: Document 02/04/24 11:15 DCW (Rec: 02/04/24 12:00 DCW [id number]) OP-PT Subjective Patient Comments Patient Comments Pt indicates he is doing well today. PT-OP-D Balance Start: 01/31/24 14:55 Freq: Status: Active Protocol: Document 01/31/24 13:45 DCW (Rec: 01/31/24 15:17 DCW [id number]) OP-PT Balance Assessment Standing Balance Static Standing Balance Ability Fair Dynamic Standing Balance Ability Fair Balance Tests Functional Reach Functional Reach Test 6 inches Functional Reach Impairment Rating 40 to <60% Impaired (Score 5-6 ) Romberg Romberg 30+ eyes open, 18 eyes closed Estrella Fall Scale Copyright Permission PT-OP-E Functional Tests Start: 01/31/24 14:55 Freq: Status: Active Protocol: Document 01/31/24 13:45 DCW (Rec: 01/31/24 15:17 DCW [id number]) Functional Tests 6 Minute Walk Test Distance 262' Device Used LBQC Comments 0.73 ft/sec 30 Second Sit to Stand Test Score x6 repetitions Comments UE use, uncontrolled descent Timed Up and Go (TUG) Score 44.32 Comments /c LBQC TUG Impairment Rating 100% Impaired (Score 20) PT-OP-G Mobility & Gait Start: 01/31/24 14:55 Freq: Status: Active Protocol: Document 01/31/24 13:45 DCW (Rec: 01/31/24 16:50 DCW [id number]) OP Gait Assessment Gait Gait Assistance Required: Standby Assistance Distance (Feet) 262 Assistive Devices Assistive Device Gait Belt,Large Based Quad Cane Gait Deviations General Gait Pattern Antalgic,Ataxic,Decreased Stride Length,Decreased Feet Clearance,Flexed Trunk,Lateral Trunk Lean,Step-to Gait Factors Limiting Gait Function Factors Limiting Gait Function Decreased Activity Tolerance, Decreased Strength,Difficulty Following Directions, Incoordination,Poor Balance, Poor Safety Awareness Stair Climbing Evaluation Evaluation Level of Assist On Stairs Standby Assistance Devices Stair Climbing Assistive Devices Left Railing,Right Railing Technique/Endurance Stair Climbing Direction Ascend and Descend Stair Climbing Technique Step to Step PT-OP-M Strength Start: 01/31/24 14:55 Freq: Status: Active Protocol: Document 01/31/24 13:45 DCW (Rec: 01/31/24 16:50 DCW [id number]) Hip Strength Hip Manual Muscle Testing Right Flexion (L2) 2+ Poor+ Abduction 2- Poor- Adduction 2+ Poor+ External Rotation 0 Zero Internal Rotation 0 Zero Left Flexion (L2) 4- Good- Abduction 4- Good- Adduction 4- Good- External Rotation 4+ Good+ Internal Rotation 4+ Good+ Knee Strength Knee Manual Muscle Testing Right Flexion (S2) 1 Trace Extension (L3) 3- Fair- Left Flexion (S2) 5 Normal Extension (L3) 5 Normal PT-OP-Q Treatments Start: 01/31/24 14:55 Freq: Status: Active Protocol: Document 02/04/24 11:15 DCW (Rec: 02/04/24 12:00 [facility] [id number]) Cardio Equipment Recumbent Elliptical ([employer]) Duration (Minutes) 5 Resistance 5 Seat Position 9 Other left UE/ ralph [employer] Equipment Shuttle Recovery Unilateral Squats Resistance R 25#, L 37# Shuttle Recovery Platform Stable Bilateral Squats Resistance 87# (3 new bands) Shuttle Recovery Platform Stable Therapeutic Exercises Supine Exercises LTR Supine Exercise Name LTR Side bilateral Resistance Lv 2 resistance SAQ Supine Exercise Name SAQ Side right SLR Supine Exercise Name SLR - AAROM Side right Sitting Exercises Hamstring Curls Sitting Exercise Name Hamstring Curls Side right Resistance Lv 2 Comments Tactile Cues at HS LAQ Sitting Exercise Name LAQ Side right Other Exercises Step-downs Other Exercise Name Step-dpwns Side left Equipment Used 4 step PT-OP-T Assessment and Plan Start: 01/31/24 14:55 Freq: Status: Active Protocol: Document 02/04/24 11:15 DCW (Rec: 02/04/24 12:00 [facility] [id number]) Physical Therapy Assessment Impairments Impairments Activity Tolerance,Balance, Coordination,Functional Activities,Functional Mobility ,Gait,ROM,Soft Tissue Mobility ,Strength,Tone,Transfers Goals Two Impairment Pt ambulates 262 feet during his 6MWT, for a gait speed of 0.73 ft/sec Alf Goal (LTG) Pt to complete a 6MWT using a LBQC to ambulate >400', demonstrating an improved gait with a more efficient use of his AD One Impairment Pt does not have an appropriate home exercise program Short Term Goal (STG) Pt to be independent and compliant with an appropriate HEP STG Duration 03/02/24 Assessment Summary Assessment Pt put forth good effort today , spent much of today working on supine/sitting TherEx in effort to try to regain hip flexor and quad strength that pt appears to have lost since prior discharge from PT. Continue to focus on functional mobility, gait/ balance, and LE strength Physical Therapy Plan Frequency and Duration Frequency of Treatment 2x/Week Plan of Care Start Date 01/31/24 Plan of Care End Date 04/30/24 Therapeutic Interventions Therapeutic Interventions Balance Training,Gait Training ,Home Exercise Program,Manual Therapy,Neuromuscular Re- education,Patient/Caregiver Education,Self-Care/Home Management,Soft Tissue Mobilization,Therapeutic Activities,Therapeutic Exercises,Vestibular Rehabilitation,Wheelchair Management Next Visit Focus/Plan Next Note Type Treatment Note Next Visit Plan Gait training, strengthening, activity tolerance
--- NOTE | 2024-02-07 12:39 | PT.OTN ---
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 (02/07/24) Aphasia following unspecified cerebrovascular disease (02/07/24) Unsteadiness on feet (02/07/24) Other abnormalities of gait and mobility (02/07/24) Repeated falls (02/07/24) Weakness (02/07/24) Personal history of transient ischemic attack (TIA), and cerebral infarction without residual deficits (02/07/24) Physical Therapy Treatment Note PT-OP-A Visit Information Start: 01/31/24 14:55 Freq: Status: Active Protocol: Document 02/07/24 12:00 DCW (Rec: 02/07/24 12:39 DCW [id number]) Out-Patient Physical Therapy Visit Information Visit Information Visit Type Treatment Note Visit Start Time 12:00 Visit Stop Time 12:45 Visit Number 3 Number of DITCH WORKER Visits 0 Evaluation Information Evaluation Date 01/31/24 PT-OP-B Current Condition Start: 01/31/24 14:55 Freq: Status: Active Protocol: Document 01/31/24 13:45 DCW (Rec: 01/31/24 17:08 DCW [id number]) Current Condition History of Current Condition Onset Date 2013 Current Complaints CVA, decrease in balance and activity tolerance History of Current Condition Pt is a 68 year old male who is 10 years s/p CVA which resulted in fairly severe right-sided hemiplegia. Pt has been seen at this facility multiple times off and on since his initial CVA to work on balance, gait, strength, activity toelrance, and functional mobility. Pt is largely non-verbal since his CVA. His attends today's evaluation reporting he has experienced a decline in function since he was last treated in PT (was last discharged 11/01/22). reports he was really struggling a few months ago, limited mobility and very limited energy, but they have recently had some changes to the treatment of his diabetes, which has helped. admits he still does not want to do a whole lot outside, and just seems to have a more difficult time moving around, appears to have greatly decreased confidence. Recently exhibiting slower gait. Also bring up possibility of getting w/c for longer outdoor activities, wondering about letter of medical necessity. PT-OP-C Subjective Start: 01/31/24 14:55 Freq: Status: Active Protocol: Document 02/07/24 12:00 DCW (Rec: 02/07/24 12:39 DCW [id number]) OP-PT Subjective Patient Comments Patient Comments Daughter brings pt today, points out large red welt/bump on pt's posterior neck, notes they're going to schedule with a grocery specialist, wondering if it is an infected follicle or boil. PT-OP-D Balance Start: 01/31/24 14:55 Freq: Status: Active Protocol: Document 01/31/24 13:45 DCW (Rec: 01/31/24 15:17 DCW [id number]) OP-PT Balance Assessment Standing Balance Static Standing Balance Ability Fair Dynamic Standing Balance Ability Fair Balance Tests Functional Reach Functional Reach Test 6 inches Functional Reach Impairment Rating 40 to <60% Impaired (Score 5-6 ) Romberg Romberg 30+ eyes open, 18 eyes closed Estrella Fall Scale Copyright Permission PT-OP-E Functional Tests Start: 01/31/24 14:55 Freq: Status: Active Protocol: Document 01/31/24 13:45 DCW (Rec: 01/31/24 15:17 DCW [id number]) Functional Tests 6 Minute Walk Test Distance 262' Device Used LBQC Comments 0.73 ft/sec 30 Second Sit to Stand Test Score x6 repetitions Comments UE use, uncontrolled descent Timed Up and Go (TUG) Score 44.32 Comments /c LBQC TUG Impairment Rating 100% Impaired (Score 20) PT-OP-G Mobility & Gait Start: 01/31/24 14:55 Freq: Status: Active Protocol: Document 01/31/24 13:45 DCW (Rec: 01/31/24 16:50 DCW [id number]) OP Gait Assessment Gait Gait Assistance Required: Standby Assistance Distance (Feet) 262 Assistive Devices Assistive Device Gait Belt,Large Based Quad Cane Gait Deviations General Gait Pattern Antalgic,Ataxic,Decreased Stride Length,Decreased Feet Clearance,Flexed Trunk,Lateral Trunk Lean,Step-to Gait Factors Limiting Gait Function Factors Limiting Gait Function Decreased Activity Tolerance, Decreased Strength,Difficulty Following Directions, Incoordination,Poor Balance, Poor Safety Awareness Stair Climbing Evaluation Evaluation Level of Assist On Stairs Standby Assistance Devices Stair Climbing Assistive Devices Left Railing,Right Railing Technique/Endurance Stair Climbing Direction Ascend and Descend Stair Climbing Technique Step to Step PT-OP-M Strength Start: 01/31/24 14:55 Freq: Status: Active Protocol: Document 01/31/24 13:45 DCW (Rec: 01/31/24 16:50 DCW [id number]) Hip Strength Hip Manual Muscle Testing Right Flexion (L2) 2+ Poor+ Abduction 2- Poor- Adduction 2+ Poor+ External Rotation 0 Zero Internal Rotation 0 Zero Left Flexion (L2) 4- Good- Abduction 4- Good- Adduction 4- Good- External Rotation 4+ Good+ Internal Rotation 4+ Good+ Knee Strength Knee Manual Muscle Testing Right Flexion (S2) 1 Trace Extension (L3) 3- Fair- Left Flexion (S2) 5 Normal Extension (L3) 5 Normal PT-OP-Q Treatments Start: 01/31/24 14:55 Freq: Status: Active Protocol: Document 02/07/24 12:00 DCW (Rec: 02/07/24 12:39 DCW [id number]) Cardio Equipment Recumbent Elliptical ([employer]) Duration (Minutes) 5 Resistance 5 Seat Position 9 Other left UE/ [employer] Equipment Shuttle Recovery Unilateral Squats Resistance R 25#, L 37# Shuttle Recovery Platform Stable Bilateral Squats Resistance 87# (3 new bands) Shuttle Recovery Platform Stable Shuttle Balance red clips Comments Wide NATE, Staggered Therapeutic Exercises Supine Exercises LTR Supine Exercise Name LTR Side bilateral Resistance Lv 2 resistance SAQ Supine Exercise Name SAQ Side right SLR Supine Exercise Name SLR Side right Sitting Exercises Hamstring Curls Sitting Exercise Name Hamstring Curls Side right Resistance Lv 2 Comments Tactile Cues at HS LAQ Sitting Exercise Name LAQ Side right Resistance 2# PT-OP-T Assessment and Plan Start: 01/31/24 14:55 Freq: Status: Active Protocol: Document 02/07/24 12:00 DCW (Rec: 02/07/24 12:39 DCW [id number]) Physical Therapy Assessment Impairments Impairments Activity Tolerance,Balance, Coordination,Functional Activities,Functional Mobility ,Gait,ROM,Soft Tissue Mobility ,Strength,Tone,Transfers Goals Two Impairment Pt ambulates 262 feet during his 6MWT, for a gait speed of 0.73 ft/sec Peer Support Specialist Goal (LTG) Pt to complete a 6MWT using a LBQC to ambulate >400', demonstrating an improved gait with a more efficient use of his AD One Impairment Pt does not have an appropriate home exercise program Short Term Goal (STG) Pt to be independent and compliant with an appropriate HEP STG Duration 03/02/24 Assessment Summary Assessment Continues to work hard in PT. Signifinant improvement today with SLR, able to perform entirely AROM, relied on AAROM earlier this week to maintain knee extension. Physical Therapy Plan Frequency and Duration Frequency of Treatment 2x/Week Plan of Care Start Date 01/31/24 Plan of Care End Date 04/30/24 Therapeutic Interventions Therapeutic Interventions Balance Training,Gait Training ,Home Exercise Program,Manual Therapy,Neuromuscular Re- education,Patient/Caregiver Education,Self-Care/Home Management,Soft Tissue Mobilization,Therapeutic Activities,Therapeutic Exercises,Vestibular Rehabilitation,Wheelchair Management Next Visit Focus/Plan Next Note Type Treatment Note Next Visit Plan Gait training, strengthening, activity tolerance
--- NOTE | 2024-02-12 11:15 | PT.OTN ---
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 (02/12/24) Aphasia following unspecified cerebrovascular disease (02/12/24) Unsteadiness on feet (02/12/24) Other abnormalities of gait and mobility (02/12/24) Repeated falls (02/12/24) Weakness (02/12/24) Personal history of transient ischemic attack (TIA), and cerebral infarction without residual deficits (02/12/24) Physical Therapy Treatment Note PT-OP-A Visit Information Start: 01/31/24 14:55 Freq: Status: Active Protocol: Document 02/12/24 10:35 SP (Rec: 02/12/24 11:31 SP [id number]) Out-Patient Physical Therapy Visit Information Visit Information Visit Type Treatment Note Visit Start Time 10:35 Visit Stop Time 11:15 Visit Number 4 Number of OYSTER GROWER Visits 1 Evaluation Information Evaluation Date 01/31/24 PT-OP-B Current Condition Start: 01/31/24 14:55 Freq: Status: Active Protocol: Document 01/31/24 13:45 DCW (Rec: 01/31/24 17:08 DCW [id number]) Current Condition History of Current Condition Onset Date 2013 Current Complaints CVA, decrease in balance and activity tolerance History of Current Condition Pt is a 68 year old male who is 10 years s/p CVA which resulted in fairly severe right-sided hemiplegia. Pt has been seen at this facility multiple times off and on since his initial CVA to work on balance, gait, strength, activity toelrance, and functional mobility. Pt is largely non-verbal since his CVA. His attends today's evaluation reporting he has experienced a decline in function since he was last treated in PT (was last discharged 11/01/22). reports he was really struggling a few months ago, limited mobility and very limited energy, but they have recently had some changes to the treatment of his diabetes, which has helped. admits he still does not want to do a whole lot outside, and just seems to have a more difficult time moving around, appears to have greatly decreased confidence. Recently exhibiting slower gait. Also bring up possibility of getting w/c for longer outdoor activities, wondering about letter of medical necessity. PT-OP-C Subjective Start: 01/31/24 14:55 Freq: Status: Active Protocol: Document 02/12/24 10:35 SP (Rec: 02/12/24 11:31 SP [id number]) OP-PT Subjective Patient Comments Patient Comments Pt reports nodded implying yes when asked if doing ok. PT-OP-D Balance Start: 01/31/24 14:55 Freq: Status: Active Protocol: Document 01/31/24 13:45 DCW (Rec: 01/31/24 15:17 DCW [id number]) OP-PT Balance Assessment Standing Balance Static Standing Balance Ability Fair Dynamic Standing Balance Ability Fair Balance Tests Functional Reach Functional Reach Test 6 inches Functional Reach Impairment Rating 40 to <60% Impaired (Score 5-6 ) Romberg Romberg 30+ eyes open, 18 eyes closed Estrella Fall Scale Copyright Permission PT-OP-E Functional Tests Start: 01/31/24 14:55 Freq: Status: Active Protocol: Document 01/31/24 13:45 DCW (Rec: 01/31/24 15:17 DCW [id number]) Functional Tests 6 Minute Walk Test Distance 262' Device Used LBQC Comments 0.73 ft/sec 30 Second Sit to Stand Test Score x6 repetitions Comments UE use, uncontrolled descent Timed Up and Go (TUG) Score 44.32 Comments /c LBQC TUG Impairment Rating 100% Impaired (Score 20) PT-OP-G Mobility & Gait Start: 01/31/24 14:55 Freq: Status: Active Protocol: Document 01/31/24 13:45 DCW (Rec: 01/31/24 16:50 DCW [id number]) OP Gait Assessment Gait Gait Assistance Required: Standby Assistance Distance (Feet) 262 Assistive Devices Assistive Device Gait Belt,Large Based Quad Cane Gait Deviations General Gait Pattern Antalgic,Ataxic,Decreased Stride Length,Decreased Feet Clearance,Flexed Trunk,Lateral Trunk Lean,Step-to Gait Factors Limiting Gait Function Factors Limiting Gait Function Decreased Activity Tolerance, Decreased Strength,Difficulty Following Directions, Incoordination,Poor Balance, Poor Safety Awareness Stair Climbing Evaluation Evaluation Level of Assist On Stairs Standby Assistance Devices Stair Climbing Assistive Devices Left Railing,Right Railing Technique/Endurance Stair Climbing Direction Ascend and Descend Stair Climbing Technique Step to Step PT-OP-M Strength Start: 01/31/24 14:55 Freq: Status: Active Protocol: Document 03/29/24 13:45 DCW (Rec: 01/31/24 16:50 DCW [id number]) Hip Strength Hip Manual Muscle Testing Right Flexion (L2) 2+ Poor+ Abduction 2- Poor- Adduction 2+ Poor+ External Rotation 0 Zero Internal Rotation 0 Zero Left Flexion (L2) 4- Good- Abduction 4- Good- Adduction 4- Good- External Rotation 4+ Good+ Internal Rotation 4+ Good+ Knee Strength Knee Manual Muscle Testing Right Flexion (S2) 1 Trace Extension (L3) 3- Fair- Left Flexion (S2) 5 Normal Extension (L3) 5 Normal PT-OP-Q Treatments Start: 01/31/24 14:55 Freq: Status: Active Protocol: Document 02/12/24 10:35 SP (Rec: 02/12/24 11:31 SP [id number]) Cardio Equipment Recumbent Elliptical (5skills) Duration (Minutes) 5 Resistance 5 Seat Position in9 Other left UE/ ralph LE's, occ tactile cue LLE abd midline neutral Gym Equipment Shuttle Recovery Unilateral Squats Resistance R 25#, L 37# (new band both) Shuttle Recovery Platform Stable Reps/Time R 10 (hard/max), L 10 x2 Bilateral Squats Details ball between knees, tapping L quad A firing into ext Resistance 87#>62#> 50 (2 new bands) Shuttle Recovery Platform Stable Reps/Time 4, 5, 6 reps Therapeutic Exercises Sitting Exercises LAQ Sitting Exercise Name LAQ (while waiting for bathroom nearby) Side right Resistance AROM hold LLE 2 SH, AAROM RLE Reps/Minutes 2x10 each LE Comments tapping to R quad assist firing AAROM to complete ext Gait Training Gait Activity SBQC Device Used SBQC Distance/Duration 100 ft x2 to/from front enterance/gym Treatment Focus 3pt>2P gait, receiprocal stepping Comments increase RLE advancement receiprocal stepping PT-OP-T Assessment and Plan Start: 01/31/24 14:55 Freq: Status: Active Protocol: Document 02/12/24 10:35 SP (Rec: 02/12/24 11:31 SP [id number]) Physical Therapy Assessment Goals Two Impairment Pt ambulates 262 feet during his 6MWT, for a gait speed of 0.73 ft/sec Group Home Goal (LTG) Pt to complete a 6MWT using a LBQC to ambulate >400', demonstrating an improved gait with a more efficient use of his AD One Impairment Pt does not have an appropriate home exercise program Short Term Goal (STG) Pt to be independent and compliant with an appropriate HEP STG Duration 03/02/24 Assessment Summary Assessment During tx: pt pointed behind neck squinting eyes head on shuttle recovery support wedge , noted and nodded implying yes is being seen and followed by doctor, daughter confirmed end tx has an irritated cyst, red-purplish in color dime size. Pt decreased tx time due to use of bathroom 7 min, Indep, OYSTER GROWER stayed outside door for safety and ed use call light if needed. He had decreased strength today, had to reduce resistance on shuttle recovery and reduction tolerance reps today. He couldn't identify if pain or really hard, less squinting with reduction resistance. Good R quad firing with tapping during LAQ AAROM and knee ext during shuttle recovery. Pt shortened tx due to use of bathroom in middle of tx appt. Physical Therapy Plan Frequency and Duration Frequency of Treatment 2x/Week Plan of Care Start Date 01/31/24 Plan of Care End Date 04/30/24 Therapeutic Interventions Therapeutic Interventions Balance Training,Gait Training ,Home Exercise Program,Manual Therapy,Neuromuscular Re- education,Patient/Caregiver Education,Self-Care/Home Management,Soft Tissue Mobilization,Therapeutic Activities,Therapeutic Exercises,Vestibular Rehabilitation,Wheelchair Management Next Visit Focus/Plan Next Note Type Treatment Note Next Visit Plan Gait training, strengthening, activity tolerance
--- NOTE | 2024-02-14 11:57 | PT.OTN ---
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 (02/14/24) Aphasia following unspecified cerebrovascular disease (02/14/24) Unsteadiness on feet (02/14/24) Other abnormalities of gait and mobility (02/14/24) Repeated falls (02/14/24) Weakness (02/14/24) Personal history of transient ischemic attack (TIA), and cerebral infarction without residual deficits (02/14/24) Physical Therapy Treatment Note PT-OP-A Visit Information Start: 01/31/24 14:55 Freq: Status: Active Protocol: Document 02/14/24 11:17 SP (Rec: 02/14/24 12:09 SP [id number]) Out-Patient Physical Therapy Visit Information Visit Information Visit Type Treatment Note Visit Start Time 11:17 Visit Stop Time 11:57 Visit Number 5 Number of DIRECTOR OF SAFETY AND SECURITY Visits 2 Evaluation Information Evaluation Date 01/31/24 PT-OP-B Current Condition Start: 01/31/24 14:55 Freq: Status: Active Protocol: Document 01/31/24 13:45 DCW (Rec: 01/31/24 17:08 DCW [id number]) Current Condition History of Current Condition Onset Date 2013 Current Complaints CVA, decrease in balance and activity tolerance History of Current Condition Pt is a 68 year old male who is 10 years s/p CVA which resulted in fairly severe right-sided hemiplegia. Pt has been seen at this facility multiple times off and on since his initial CVA to work on balance, gait, strength, activity toelrance, and functional mobility. Pt is largely non-verbal since his CVA. His attends today's evaluation reporting he has experienced a decline in function since he was last treated in PT (was last discharged 11/01/22). reports he was really struggling a few months ago, limited mobility and very limited energy, but they have recently had some changes to the treatment of his diabetes, which has helped. admits he still does not want to do a whole lot outside, and just seems to have a more difficult time moving around, appears to have greatly decreased confidence. Recently exhibiting slower gait. Also bring up possibility of getting w/c for longer outdoor activities, wondering about letter of medical necessity. PT-OP-C Subjective Start: 01/31/24 14:55 Freq: Status: Active Protocol: Document 02/14/24 11:17 SP (Rec: 02/14/24 12:09 SP [id number]) OP-PT Subjective Patient Comments Patient Comments Pt PT-OP-D Balance Start: 01/31/24 14:55 Freq: Status: Active Protocol: Document 01/31/24 13:45 DCW (Rec: 01/31/24 15:17 DCW [id number]) OP-PT Balance Assessment Standing Balance Static Standing Balance Ability Fair Dynamic Standing Balance Ability Fair Balance Tests Functional Reach Functional Reach Test 6 inches Functional Reach Impairment Rating 40 to <60% Impaired (Score 5-6 ) Romberg Romberg 30+ eyes open, 18 eyes closed Estrella Fall Scale Copyright Permission PT-OP-E Functional Tests Start: 01/31/24 14:55 Freq: Status: Active Protocol: Document 01/31/24 13:45 DCW (Rec: 01/31/24 15:17 DCW [id number]) Functional Tests 6 Minute Walk Test Distance 262' Device Used LBQC Comments 0.73 ft/sec 30 Second Sit to Stand Test Score x6 repetitions Comments UE use, uncontrolled descent Timed Up and Go (TUG) Score 44.32 Comments /c LBQC TUG Impairment Rating 100% Impaired (Score 20) PT-OP-G Mobility & Gait Start: 01/31/24 14:55 Freq: Status: Active Protocol: Document 01/31/24 13:45 DCW (Rec: 01/31/24 16:50 DCW [id number]) OP Gait Assessment Gait Gait Assistance Required: Standby Assistance Distance (Feet) 262 Assistive Devices Assistive Device Gait Belt,Large Based Quad Cane Gait Deviations General Gait Pattern Antalgic,Ataxic,Decreased Stride Length,Decreased Feet Clearance,Flexed Trunk,Lateral Trunk Lean,Step-to Gait Factors Limiting Gait Function Factors Limiting Gait Function Decreased Activity Tolerance, Decreased Strength,Difficulty Following Directions, Incoordination,Poor Balance, Poor Safety Awareness Stair Climbing Evaluation Evaluation Level of Assist On Stairs Standby Assistance Devices Stair Climbing Assistive Devices Left Railing,Right Railing Technique/Endurance Stair Climbing Direction Ascend and Descend Stair Climbing Technique Step to Step PT-OP-M Strength Start: 01/31/24 14:55 Freq: Status: Active Protocol: Document 01/31/24 13:45 DCW (Rec: 01/31/24 16:50 DCW [id number]) Hip Strength Hip Manual Muscle Testing Right Flexion (L2) 2+ Poor+ Abduction 2- Poor- Adduction 2+ Poor+ External Rotation 0 Zero Internal Rotation 0 Zero Left Flexion (L2) 4- Good- Abduction 4- Good- Adduction 4- Good- External Rotation 4+ Good+ Internal Rotation 4+ Good+ Knee Strength Knee Manual Muscle Testing Right Flexion (S2) 1 Trace Extension (L3) 3- Fair- Left Flexion (S2) 5 Normal Extension (L3) 5 Normal PT-OP-Q Treatments Start: 01/31/24 14:55 Freq: Status: Active Protocol: Document 02/14/24 11:17 SP (Rec: 02/14/24 12:09 SP [id number]) Cardio Equipment Recumbent Elliptical (Payveris) Duration (Minutes) 5 Resistance 5 Seat Position in9 Other left UE/ ralph LE's, occ tactile cue LLE abd midline neutral Gym Equipment Shuttle Recovery Bilateral Squats Details ball between knees, tapping L quad A firing into ext Resistance 50# (2 new bands) Shuttle Recovery Platform Stable Reps/Time 15 Therapeutic Exercises Sitting Exercises Hamstring Curls Sitting Exercise Name Hamstring Curls Side bilateral Resistance L Lv 2, R rolling scooter A/ AAROM Reps/Minutes 2x10 R, 2x15 L Comments Tactile Cues at HS R- improved 8 reps self 2nd set, guide scooter LAQ Sitting Exercise Name LAQ Side bilateral Resistance AROM RLE, 4# leg wt LLE Reps/Minutes 2x10 each LE Comments improved TKE on R today, target to kick to Standing Exercises resisted side stepping Side bilateral Resistance TbL1 at ankles Equipment Used rail LUE support Reps/Minutes 15 ft x1 lap Comments cued feet // facing rail, increase RLE ft clearance Neuro Re-Education Treatment Balance Activities foam Details WBOS CGA/cSBA Equipment near facing rail, foam black Comments 1 HTs 2 EC 17 sec, 11 sec PT-OP-T Assessment and Plan Start: 01/31/24 14:55 Freq: Status: Active Protocol: Document 02/14/24 11:17 SP (Rec: 02/14/24 12:09 SP [id number]) Physical Therapy Assessment Goals Two Impairment Pt ambulates 262 feet during his 6MWT, for a gait speed of 0.73 ft/sec Residential Goal (LTG) Pt to complete a 6MWT using a LBQC to ambulate >400', demonstrating an improved gait with a more efficient use of his AD One Impairment Pt does not have an appropriate home exercise program Short Term Goal (STG) Pt to be independent and compliant with an appropriate HEP STG Duration 03/02/24 Assessment Summary Assessment Pt worked hard today, with increased resistance LLE, improved AROM R quad contraction with ther ex and ability peform 2nd set tolerance and addition of resisted side stepping today. Was able to perform challenge uneven surface balance head turns and EC uneven surface up to 17 sec. Physical Therapy Plan Frequency and Duration Frequency of Treatment 2x/Week Plan of Care Start Date 01/31/24 Plan of Care End Date 04/30/24 Therapeutic Interventions Therapeutic Interventions Balance Training,Gait Training ,Home Exercise Program,Manual Therapy,Neuromuscular Re- education,Patient/Caregiver Education,Self-Care/Home Management,Soft Tissue Mobilization,Therapeutic Activities,Therapeutic Exercises,Vestibular Rehabilitation,Wheelchair Management Next Visit Focus/Plan Next Note Type Treatment Note Next Visit Plan Gait training, strengthening, activity tolerance
--- NOTE | 2024-02-19 17:40 | PT.OTN ---
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 (02/19/24) Aphasia following unspecified cerebrovascular disease (02/19/24) Unsteadiness on feet (02/19/24) Other abnormalities of gait and mobility (02/19/24) Repeated falls (02/19/24) Weakness (02/19/24) Personal history of transient ischemic attack (TIA), and cerebral infarction without residual deficits (02/19/24) Physical Therapy Treatment Note PT-OP-A Visit Information Start: 01/31/24 14:55 Freq: Status: Active Protocol: Document 02/19/24 16:45 DCW (Rec: 02/19/24 17:40 DCW [id number]) Out-Patient Physical Therapy Visit Information Visit Information Visit Type Treatment Note Visit Start Time 16:45 Visit Stop Time 17:30 Visit Number 6 Number of CUSTOM DRESSMAKER Visits 0 Evaluation Information Evaluation Date 01/31/24 PT-OP-B Current Condition Start: 01/31/24 14:55 Freq: Status: Active Protocol: Document 01/31/24 13:45 DCW (Rec: 01/31/24 17:08 DCW [id number]) Current Condition History of Current Condition Onset Date 2013 Current Complaints CVA, decrease in balance and activity tolerance History of Current Condition Pt is a 68 year old male who is 10 years s/p CVA which resulted in fairly severe right-sided hemiplegia. Pt has been seen at this facility multiple times off and on since his initial CVA to work on balance, gait, strength, activity toelrance, and functional mobility. Pt is largely non-verbal since his CVA. His attends today's evaluation reporting he has experienced a decline in function since he was last treated in PT (was last discharged 11/01/22). reports he was really struggling a few months ago, limited mobility and very limited energy, but they have recently had some changes to the treatment of his diabetes, which has helped. admits he still does not want to do a whole lot outside, and just seems to have a more difficult time moving around, appears to have greatly decreased confidence. Recently exhibiting slower gait. Also bring up possibility of getting w/c for longer outdoor activities, wondering about letter of medical necessity. PT-OP-C Subjective Start: 01/31/24 14:55 Freq: Status: Active Protocol: Document 02/19/24 16:45 DCW (Rec: 02/19/24 17:40 DCW [id number]) OP-PT Subjective Patient Comments Patient Comments reports pt's welt on pt's neck was an infected abcess that they have now had lanced and drained, pt is now on antibiotics for. PT-OP-D Balance Start: 01/31/24 14:55 Freq: Status: Active Protocol: Document 01/31/24 13:45 DCW (Rec: 01/31/24 15:17 DCW [id number]) OP-PT Balance Assessment Standing Balance Static Standing Balance Ability Fair Dynamic Standing Balance Ability Fair Balance Tests Functional Reach Functional Reach Test 6 inches Functional Reach Impairment Rating 40 to <60% Impaired (Score 5-6 ) Romberg Romberg 30+ eyes open, 18 eyes closed Estrella Fall Scale Copyright Permission PT-OP-E Functional Tests Start: 01/31/24 14:55 Freq: Status: Active Protocol: Document 01/31/24 13:45 DCW (Rec: 01/31/24 15:17 DCW [id number]) Functional Tests 6 Minute Walk Test Distance 262' Device Used LBQC Comments 0.73 ft/sec 30 Second Sit to Stand Test Score x6 repetitions Comments UE use, uncontrolled descent Timed Up and Go (TUG) Score 44.32 Comments /c LBQC TUG Impairment Rating 100% Impaired (Score 20) PT-OP-G Mobility & Gait Start: 01/31/24 14:55 Freq: Status: Active Protocol: Document 01/31/24 13:45 DCW (Rec: 01/31/24 16:50 DCW [id number]) OP Gait Assessment Gait Gait Assistance Required: Standby Assistance Distance (Feet) 262 Assistive Devices Assistive Device Gait Belt,Large Based Quad Cane Gait Deviations General Gait Pattern Antalgic,Ataxic,Decreased Stride Length,Decreased Feet Clearance,Flexed Trunk,Lateral Trunk Lean,Step-to Gait Factors Limiting Gait Function Factors Limiting Gait Function Decreased Activity Tolerance, Decreased Strength,Difficulty Following Directions, Incoordination,Poor Balance, Poor Safety Awareness Stair Climbing Evaluation Evaluation Level of Assist On Stairs Standby Assistance Devices Stair Climbing Assistive Devices Left Railing,Right Railing Technique/Endurance Stair Climbing Direction Ascend and Descend Stair Climbing Technique Step to Step PT-OP-M Strength Start: 01/31/24 14:55 Freq: Status: Active Protocol: Document 01/31/24 13:45 DCW (Rec: 01/31/24 16:50 DCW [id number]) Hip Strength Hip Manual Muscle Testing Right Flexion (L2) 2+ Poor+ Abduction 2- Poor- Adduction 2+ Poor+ External Rotation 0 Zero Internal Rotation 0 Zero Left Flexion (L2) 4- Good- Abduction 4- Good- Adduction 4- Good- External Rotation 4+ Good+ Internal Rotation 4+ Good+ Knee Strength Knee Manual Muscle Testing Right Flexion (S2) 1 Trace Extension (L3) 3- Fair- Left Flexion (S2) 5 Normal Extension (L3) 5 Normal PT-OP-Q Treatments Start: 01/31/24 14:55 Freq: Status: Active Protocol: Document 02/19/24 16:45 DCW (Rec: 02/19/24 17:40 DCW [id number]) Cardio Equipment Recumbent Elliptical ([employer]) Duration (Minutes) 5 Resistance 5 Seat Position in9 Other left UE/ ralph LE's, occ tactile cue LLE abd midline neutral Gym Equipment Shuttle Recovery Unilateral Squats Resistance R 25#, L 37# (new band both) Shuttle Recovery Platform Stable Reps/Time x15 Bilateral Squats Details ball between knees, tapping L quad A firing into ext Resistance 62#> 50 (2 new bands) Shuttle Recovery Platform Stable Reps/Time x20 Shuttle Balance red clips Comments Wide NATE, Staggered Therapeutic Exercises Sitting Exercises LAQ Sitting Exercise Name LAQ Side bilateral Resistance 5# Reps/Minutes 2x10 each LE Standing Exercises resisted side stepping Side bilateral Resistance Tb L1 at ankles Equipment Used rail LUE support Reps/Minutes 15 ft x1 lap Comments cued feet // facing rail, increase RLE ft clearance Neuro Re-Education Treatment Balance Activities Uneven Gait Comments Ambulating over blue pads with obstacles underneath PT-OP-T Assessment and Plan Start: 01/31/24 14:55 Freq: Status: Active Protocol: Document 02/19/24 16:45 DCW (Rec: 02/19/24 17:40 DCW [id number]) Physical Therapy Assessment Impairments Impairments Activity Tolerance,Balance, Coordination,Functional Activities,Functional Mobility ,Gait,ROM,Soft Tissue Mobility ,Strength,Tone,Transfers Goals Two Impairment Pt ambulates 262 feet during his 6MWT, for a gait speed of 0.73 ft/sec Mcfp Goal (LTG) Pt to complete a 6MWT using a LBQC to ambulate >400', demonstrating an improved gait with a more efficient use of his AD One Impairment Pt does not have an appropriate home exercise program Short Term Goal (STG) Pt to be independent and compliant with an appropriate HEP STG Duration 03/02/24 Assessment Summary Assessment Pt very clearly had increased workload with addition of ambulating over uneven surfaces today. Also showing some good improvements with right quad strength, able to perform weighted LAQ. Physical Therapy Plan Frequency and Duration Frequency of Treatment 2x/Week Plan of Care Start Date 01/31/24 Plan of Care End Date 04/30/24 Therapeutic Interventions Therapeutic Interventions Balance Training,Gait Training ,Home Exercise Program,Manual Therapy,Neuromuscular Re- education,Patient/Caregiver Education,Self-Care/Home Management,Soft Tissue Mobilization,Therapeutic Activities,Therapeutic Exercises,Vestibular Rehabilitation,Wheelchair Management Next Visit Focus/Plan Next Note Type Treatment Note Next Visit Plan Gait training, strengthening, activity tolerance
--- NOTE | 2024-02-26 17:41 | PT.OTN ---
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 (02/26/24) Aphasia following unspecified cerebrovascular disease (02/26/24) Unsteadiness on feet (02/26/24) Other abnormalities of gait and mobility (02/26/24) Repeated falls (02/26/24) Weakness (02/26/24) Personal history of transient ischemic attack (TIA), and cerebral infarction without residual deficits (02/26/24) Physical Therapy Treatment Note PT-OP-A Visit Information Start: 01/31/24 14:55 Freq: Status: Active Protocol: Document 02/26/24 16:46 DCW (Rec: 02/26/24 17:37 DCW [id number]) Out-Patient Physical Therapy Visit Information Visit Information Visit Type Treatment Note Visit Start Time 16:46 Visit Stop Time 17:30 Visit Number 7 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 Pt has been seen at this facility multiple times off and on since his initial CVA to work on balance, gait, strength, activity toelrance, and functional mobility. Pt is largely non-verbal since his CVA. His attends today's evaluation reporting he has experienced a decline in function since he was last treated in PT (was last discharged 11/01/22). reports he was really struggling a few months ago, limited mobility and very limited energy, but they have recently had some changes to the treatment of his diabetes, which has helped. admits he still does not want to do a whole lot outside, and just seems to have a more difficult time moving around, appears to have greatly decreased confidence. Recently exhibiting slower gait. Also bring up possibility of getting w/c for longer outdoor activities, wondering about letter of medical necessity. PT-OP-C Subjective Start: 01/31/24 14:55 Freq: Status: Active Protocol: Document 02/26/24 16:46 DCW (Rec: 02/26/24 17:37 DCW [id number]) OP-PT Subjective Patient Comments Patient Comments Pt's notes that caregiver reported today that pt's right leg appeard to be dark and cold today, PCP sent referral for a doppler. PT-OP-D Balance Start: 01/31/24 14:55 Freq: Status: Active Protocol: Document 01/31/24 13:45 DCW (Rec: 01/31/24 15:17 DCW [id number]) OP-PT Balance Assessment Standing Balance Static Standing Balance Ability Fair Dynamic Standing Balance Ability Fair Balance Tests Functional Reach Functional Reach Test 6 inches Functional Reach Impairment Rating 40 to <60% Impaired (Score 5-6 ) Romberg Romberg 30+ eyes open, 18 eyes closed Estrella Fall Scale Copyright Permission PT-OP-E Functional Tests Start: 01/31/24 14:55 Freq: Status: Active Protocol: Document 01/31/24 13:45 DCW (Rec: 01/31/24 15:17 DCW [id number]) Functional Tests 6 Minute Walk Test Distance 262' Device Used LBQC Comments 0.73 ft/sec 30 Second Sit to Stand Test Score x6 repetitions Comments UE use, uncontrolled descent Timed Up and Go (TUG) Score 44.32 Comments /c LBQC TUG Impairment Rating 100% Impaired (Score 20) PT-OP-G Mobility & Gait Start: 01/31/24 14:55 Freq: Status: Active Protocol: Document 01/31/24 13:45 DCW (Rec: 01/31/24 16:50 DCW [id number]) OP Gait Assessment Gait Gait Assistance Required: Standby Assistance Distance (Feet) 262 Assistive Devices Assistive Device Gait Belt,Large Based Quad Cane Gait Deviations General Gait Pattern Antalgic,Ataxic,Decreased Stride Length,Decreased Feet Clearance,Flexed Trunk,Lateral Trunk Lean,Step-to Gait Factors Limiting Gait Function Factors Limiting Gait Function Decreased Activity Tolerance, Decreased Strength,Difficulty Following Directions, Incoordination,Poor Balance, Poor Safety Awareness Stair Climbing Evaluation Evaluation Level of Assist On Stairs Standby Assistance Devices Stair Climbing Assistive Devices Left Railing,Right Railing Technique/Endurance Stair Climbing Direction Ascend and Descend Stair Climbing Technique Step to Step PT-OP-M Strength Start: 01/31/24 14:55 Freq: Status: Active Protocol: Document 01/31/24 13:45 DCW (Rec: 01/31/24 16:50 DCW [id number]) Hip Strength Hip Manual Muscle Testing Right Flexion (L2) 2+ Poor+ Abduction 2- Poor- Adduction 2+ Poor+ External Rotation 0 Zero Internal Rotation 0 Zero Left Flexion (L2) 4- Good- Abduction 4- Good- Adduction 4- Good- External Rotation 4+ Good+ Internal Rotation 4+ Good+ Knee Strength Knee Manual Muscle Testing Right Flexion (S2) 1 Trace Extension (L3) 3- Fair- Left Flexion (S2) 5 Normal Extension (L3) 5 Normal PT-OP-Q Treatments Start: 01/31/24 14:55 Freq: Status: Active Protocol: Document 02/26/24 16:46 DCW (Rec: 02/26/24 17:37 DCW [id number]) Cardio Equipment Recumbent Elliptical ([employer]) Duration (Minutes) 5 Resistance 6 Seat Position 9 Other left UE/ ralph LE's, occ tactile cue LLE abd midline neutral Gym Equipment Shuttle Recovery Unilateral Squats Resistance R 25#, L 37# (new band both) Shuttle Recovery Platform Stable Reps/Time x15 Bilateral Squats Details ball between knees Resistance 62#(2 new bands) Shuttle Recovery Platform Stable Reps/Time x20 Shuttle Balance red clips Comments Wide NATE, Staggered Therapeutic Exercises Sitting Exercises LAQ Sitting Exercise Name LAQ Side bilateral Resistance 5# Reps/Minutes 2x10 each LE Neuro Re-Education Treatment Balance Activities hurdles Details Hurdles Equipment // bars Uneven Gait Comments Ambulating over blue pads with obstacles underneath PT-OP-T Assessment and Plan Start: 01/31/24 14:55 Freq: Status: Active Protocol: Document 02/26/24 16:46 DCW (Rec: 02/26/24 17:37 DCW [id number]) Physical Therapy Assessment Impairments Impairments Activity Tolerance,Balance, Coordination,Functional Activities,Functional Mobility ,Gait,ROM,Soft Tissue Mobility ,Strength,Tone,Transfers Goals Two Impairment Pt ambulates 262 feet during his 6MWT, for a gait speed of 0.73 ft/sec Wax Bleacher Goal (LTG) Pt to complete a 6MWT using a LBQC to ambulate >400', demonstrating an improved gait with a more efficient use of his AD LTG Duration 04/30/24 One Impairment Pt does not have an appropriate home exercise program Short Term Goal (STG) Pt to be independent and compliant with an appropriate HEP STG Duration 03/02/24 Assessment Summary Assessment Pt actually showing fairly good progress overall since initial evaluation, putting forth good effort. Improved marlen clearance, also much more stable ambulating over uneven surfaces Physical Therapy Plan Frequency and Duration Frequency of Treatment 2x/Week Plan of Care Start Date 01/31/24 Plan of Care End Date 04/30/24 Therapeutic Interventions Therapeutic Interventions Balance Training,Gait Training ,Home Exercise Program,Manual Therapy,Neuromuscular Re- education,Patient/Caregiver Education,Self-Care/Home Management,Soft Tissue Mobilization,Therapeutic Activities,Therapeutic Exercises,Vestibular Rehabilitation,Wheelchair Management Next Visit Focus/Plan Next Note Type Treatment Note Next Visit Plan Gait training, strengthening, activity tolerance
--- NOTE | 2024-03-02 16:04 | PT.OTN ---
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 (03/02/24) Aphasia following unspecified cerebrovascular disease (03/02/24) Unsteadiness on feet (03/02/24) Other abnormalities of gait and mobility (03/02/24) Repeated falls (03/02/24) Weakness (03/02/24) Personal history of transient ischemic attack (TIA), and cerebral infarction without residual deficits (03/02/24) Physical Therapy Treatment Note PT-OP-A Visit Information Start: 01/31/24 14:55 Freq: Status: Active Protocol: Document 03/02/24 15:15 DCW (Rec: 03/02/24 16:04 DCW [id number]) Out-Patient Physical Therapy Visit Information Visit Information Visit Type Treatment Note Visit Start Time 15:15 Visit Stop Time 16:00 Visit Number 8 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 Pt has been seen at this facility multiple times off and on since his initial CVA to work on balance, gait, strength, activity toelrance, and functional mobility. Pt is largely non-verbal since his CVA. His attends today's evaluation reporting he has experienced a decline in function since he was last treated in PT (was last discharged 11/01/22). reports he was really struggling a few months ago, limited mobility and very limited energy, but they have recently had some changes to the treatment of his diabetes, which has helped. admits he still does not want to do a whole lot outside, and just seems to have a more difficult time moving around, appears to have greatly decreased confidence. Recently exhibiting slower gait. Also bring up possibility of getting w/c for longer outdoor activities, wondering about letter of medical necessity. PT-OP-C Subjective Start: 01/31/24 14:55 Freq: Status: Active Protocol: Document 03/02/24 15:15 DCW (Rec: 03/02/24 16:04 DCW [id number]) OP-PT Subjective Patient Comments Patient Comments Pt indicates he is doing well. PT-OP-D Balance Start: 01/31/24 14:55 Freq: Status: Active Protocol: Document 01/31/24 13:45 DCW (Rec: 01/31/24 15:17 DCW [id number]) OP-PT Balance Assessment Standing Balance Static Standing Balance Ability Fair Dynamic Standing Balance Ability Fair Balance Tests Functional Reach Functional Reach Test 6 inches Functional Reach Impairment Rating 40 to <60% Impaired (Score 5-6 ) Romberg Romberg 30+ eyes open, 18 eyes closed Estrella Fall Scale Copyright Permission PT-OP-E Functional Tests Start: 01/31/24 14:55 Freq: Status: Active Protocol: Document 01/31/24 13:45 DCW (Rec: 01/31/24 15:17 DCW [id number]) Functional Tests 6 Minute Walk Test Distance 262' Device Used LBQC Comments 0.73 ft/sec 30 Second Sit to Stand Test Score x6 repetitions Comments UE use, uncontrolled descent Timed Up and Go (TUG) Score 44.32 Comments /c LBQC TUG Impairment Rating 100% Impaired (Score 20) PT-OP-G Mobility & Gait Start: 01/31/24 14:55 Freq: Status: Active Protocol: Document 01/31/24 13:45 DCW (Rec: 01/31/24 16:50 DCW [id number]) OP Gait Assessment Gait Gait Assistance Required: Standby Assistance Distance (Feet) 262 Assistive Devices Assistive Device Gait Belt,Large Based Quad Cane Gait Deviations General Gait Pattern Antalgic,Ataxic,Decreased Stride Length,Decreased Feet Clearance,Flexed Trunk,Lateral Trunk Lean,Step-to Gait Factors Limiting Gait Function Factors Limiting Gait Function Decreased Activity Tolerance, Decreased Strength,Difficulty Following Directions, Incoordination,Poor Balance, Poor Safety Awareness Stair Climbing Evaluation Evaluation Level of Assist On Stairs Standby Assistance Devices Stair Climbing Assistive Devices Left Railing,Right Railing Technique/Endurance Stair Climbing Direction Ascend and Descend Stair Climbing Technique Step to Step PT-OP-M Strength Start: 01/31/24 14:55 Freq: Status: Active Protocol: Document 01/31/24 13:45 DCW (Rec: 01/31/24 16:50 DCW [id number]) Hip Strength Hip Manual Muscle Testing Right Flexion (L2) 2+ Poor+ Abduction 2- Poor- Adduction 2+ Poor+ External Rotation 0 Zero Internal Rotation 0 Zero Left Flexion (L2) 4- Good- Abduction 4- Good- Adduction 4- Good- External Rotation 4+ Good+ Internal Rotation 4+ Good+ Knee Strength Knee Manual Muscle Testing Right Flexion (S2) 1 Trace Extension (L3) 3- Fair- Left Flexion (S2) 5 Normal Extension (L3) 5 Normal PT-OP-Q Treatments Start: 01/31/24 14:55 Freq: Status: Active Protocol: Document 03/02/24 15:15 DCW (Rec: 03/02/24 16:04 DCW [id number]) Cardio Equipment Recumbent Elliptical ([employer]) Duration (Minutes) 5 Resistance 6 Seat Position 9 Other left UE/ ralph LE's, occ tactile cue LLE abd midline neutral Gym Equipment Shuttle Recovery Unilateral Squats Resistance R 25#, L 37# (new band both) Shuttle Recovery Platform Stable Reps/Time x15 Bilateral Squats Details ball between knees Resistance 62#(2 new bands) Shuttle Recovery Platform Stable Reps/Time x20 Shuttle Balance red clips Comments Wide NATE, Staggered Therapeutic Exercises Sitting Exercises LAQ Sitting Exercise Name LAQ Side bilateral Resistance 5#R, 10#L Reps/Minutes 2x10 each LE Neuro Re-Education Treatment Balance Activities Uneven Gait Comments Ambulating over blue pads with obstacles underneath PT-OP-T Assessment and Plan Start: 01/31/24 14:55 Freq: Status: Active Protocol: Document 03/02/24 15:15 DCW (Rec: 03/02/24 16:04 DCW [id number]) Physical Therapy Assessment Impairments Impairments Activity Tolerance,Balance, Coordination,Functional Activities,Functional Mobility ,Gait,ROM,Soft Tissue Mobility ,Strength,Tone,Transfers Goals Two Impairment Pt ambulates 262 feet during his 6MWT, for a gait speed of 0.73 ft/sec Fdc Goal (LTG) Pt to complete a 6MWT using a LBQC to ambulate >400', demonstrating an improved gait with a more efficient use of his AD LTG Duration 04/30/24 One Impairment Pt does not have an appropriate home exercise program Short Term Goal (STG) Pt to be independent and compliant with an appropriate HEP STG Duration 03/02/24 Assessment Summary Assessment Pt demonstrating increased severity of tremor in right LE today with standing activity, pt's notes she noticed it earlier today. Pt still doing well with dynamic gait challenges and quad strength Physical Therapy Plan Frequency and Duration Frequency of Treatment 2x/Week Plan of Care Start Date 01/31/24 Plan of Care End Date 04/30/24 Therapeutic Interventions Therapeutic Interventions Balance Training,Gait Training ,Home Exercise Program,Manual Therapy,Neuromuscular Re- education,Patient/Caregiver Education,Self-Care/Home Management,Soft Tissue Mobilization,Therapeutic Activities,Therapeutic Exercises,Vestibular Rehabilitation,Wheelchair Management Next Visit Focus/Plan Next Note Type Treatment Note Next Visit Plan Gait training, strengthening, activity tolerance
--- NOTE | 2024-03-05 15:23 | PT.OTN ---
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 (03/05/24) Aphasia following unspecified cerebrovascular disease (03/05/24) Unsteadiness on feet (03/05/24) Other abnormalities of gait and mobility (03/05/24) Repeated falls (03/05/24) Weakness (03/05/24) Personal history of transient ischemic attack (TIA), and cerebral infarction without residual deficits (03/05/24) Physical Therapy Treatment Note PT-OP-A Visit Information Start: 01/31/24 14:55 Freq: Status: Active Protocol: Document 03/05/24 13:35 SW (Rec: 03/05/24 15:23 SW [id number]) Out-Patient Physical Therapy Visit Information Visit Information Visit Type Treatment Note Visit Start Time 14:25 Visit Stop Time 15:05 Visit Number 9 Number of CALENDER OPERATOR HELPER Visits 1 PT-OP-B Current Condition Start: 01/31/24 14:55 Freq: Status: Active Protocol: Document 01/31/24 13:45 DCW (Rec: 01/31/24 17:08 DCW [id number]) Current Condition History of Current Condition Onset Date 2013 Current Complaints CVA, decrease in balance and activity tolerance History of Current Condition Pt is a 68 year old male who is 10 years s/p CVA which resulted in fairly severe right-sided hemiplegia. Pt has been seen at this facility multiple times off and on since his initial CVA to work on balance, gait, strength, activity toelrance, and functional mobility. Pt is largely non-verbal since his CVA. His attends today's evaluation reporting he has experienced a decline in function since he was last treated in PT (was last discharged 11/01/22). reports he was really struggling a few months ago, limited mobility and very limited energy, but they have recently had some changes to the treatment of his diabetes, which has helped. admits he still does not want to do a whole lot outside, and just seems to have a more difficult time moving around, appears to have greatly decreased confidence. Recently exhibiting slower gait. Also bring up possibility of getting w/c for longer outdoor activities, wondering about letter of medical necessity. PT-OP-C Subjective Start: 01/31/24 14:55 Freq: Status: Active Protocol: Document 03/05/24 13:35 SW (Rec: 03/05/24 15:23 SW [id number]) OP-PT Subjective Patient Comments Patient Comments Pt indicates doing well. PT-OP-D Balance Start: 01/31/24 14:55 Freq: Status: Active Protocol: Document 01/31/24 13:45 DCW (Rec: 01/31/24 15:17 DCW [id number]) OP-PT Balance Assessment Standing Balance Static Standing Balance Ability Fair Dynamic Standing Balance Ability Fair Balance Tests Functional Reach Functional Reach Test 6 inches Functional Reach Impairment Rating 40 to <60% Impaired (Score 5-6 ) Romberg Romberg 30+ eyes open, 18 eyes closed Estrella Fall Scale Copyright Permission PT-OP-E Functional Tests Start: 01/31/24 14:55 Freq: Status: Active Protocol: Document 01/31/24 13:45 DCW (Rec: 01/31/24 15:17 DCW [id number]) Functional Tests 6 Minute Walk Test Distance 262' Device Used LBQC Comments 0.73 ft/sec 30 Second Sit to Stand Test Score x6 repetitions Comments UE use, uncontrolled descent Timed Up and Go (TUG) Score 44.32 Comments /c LBQC TUG Impairment Rating 100% Impaired (Score 20) PT-OP-G Mobility & Gait Start: 01/31/24 14:55 Freq: Status: Active Protocol: Document 01/31/24 13:45 DCW (Rec: 01/31/24 16:50 DCW [id number]) OP Gait Assessment Gait Gait Assistance Required: Standby Assistance Distance (Feet) 262 Assistive Devices Assistive Device Gait Belt,Large Based Quad Cane Gait Deviations General Gait Pattern Antalgic,Ataxic,Decreased Stride Length,Decreased Feet Clearance,Flexed Trunk,Lateral Trunk Lean,Step-to Gait Factors Limiting Gait Function Factors Limiting Gait Function Decreased Activity Tolerance, Decreased Strength,Difficulty Following Directions, Incoordination,Poor Balance, Poor Safety Awareness Stair Climbing Evaluation Evaluation Level of Assist On Stairs Standby Assistance Devices Stair Climbing Assistive Devices Left Railing,Right Railing Technique/Endurance Stair Climbing Direction Ascend and Descend Stair Climbing Technique Step to Step PT-OP-M Strength Start: 01/31/24 14:55 Freq: Status: Active Protocol: Document 01/31/24 13:45 DCW (Rec: 01/31/24 16:50 DCW [id number]) Hip Strength Hip Manual Muscle Testing Right Flexion (L2) 2+ Poor+ Abduction 2- Poor- Adduction 2+ Poor+ External Rotation 0 Zero Internal Rotation 0 Zero Left Flexion (L2) 4- Good- Abduction 4- Good- Adduction 4- Good- External Rotation 4+ Good+ Internal Rotation 4+ Good+ Knee Strength Knee Manual Muscle Testing Right Flexion (S2) 1 Trace Extension (L3) 3- Fair- Left Flexion (S2) 5 Normal Extension (L3) 5 Normal PT-OP-Q Treatments Start: 01/31/24 14:55 Freq: Status: Active Protocol: Document 03/05/24 13:35 SW (Rec: 03/05/24 15:23 SW [id number]) Cardio Equipment Recumbent Elliptical ([employer]) Duration (Minutes) 5 Resistance 6 Seat Position 9 Other left UE/ ralph LE's, occ tactile cue LLE abd midline neutral Gym Equipment Shuttle Balance red clips Comments Wide NATE, Staggered Therapeutic Exercises Sitting Exercises LAQ Sitting Exercise Name LAQ Side bilateral Resistance 5#R, 10#L Reps/Minutes 2x10 each LE Standing Exercises resisted side stepping Side bilateral Resistance Tb L1 at ankles Equipment Used rail LUE support Reps/Minutes 15 ft x1 lap Comments cued feet // facing rail, increase RLE ft clearance Gait Training Gait Activity SBQC Description Gait training Device Used SBQC Level of Assistance SBA Surface Carpet/tile Distance/Duration 200 ft Treatment Focus reciprocal gait, balance, endurance Neuro Re-Education Treatment Balance Activities hurdles Details Hurdles Equipment // bars Uneven Gait Comments Ambulating over blue pads with obstacles underneath PT-OP-T Assessment and Plan Start: 01/31/24 14:55 Freq: Status: Active Protocol: Document 03/05/24 13:35 SW (Rec: 03/05/24 15:23 SW [id number]) Physical Therapy Assessment Goals Two Impairment Pt ambulates 262 feet during his 6MWT, for a gait speed of 0.73 ft/sec Fci Goal (LTG) Pt to complete a 6MWT using a LBQC to ambulate >400', demonstrating an improved gait with a more efficient use of his AD LTG Duration 04/30/24 One Impairment Pt does not have an appropriate home exercise program Short Term Goal (STG) Pt to be independent and compliant with an appropriate HEP STG Duration 03/02/24 Assessment Summary Assessment Pt indicated he did not want to do the leg press this session d/t RLE. Continued focus on dynamic gait challenges and balance this session, good tolerance, pt demonstrated slower cautious movements with gait on unstable surface. Pt challenged clearing RLE from hurdles this session, improved with cues and repetition. Pt required seated rest breaks throughout session. Physical Therapy Plan Frequency and Duration Frequency of Treatment 2x/Week Plan of Care Start Date 01/31/24 Plan of Care End Date 04/30/24 Therapeutic Interventions Therapeutic Interventions Balance Training,Gait Training ,Home Exercise Program,Manual Therapy,Neuromuscular Re- education,Patient/Caregiver Education,Self-Care/Home Management,Soft Tissue Mobilization,Therapeutic Activities,Therapeutic Exercises,Vestibular Rehabilitation,Wheelchair Management Next Visit Focus/Plan Next Note Type Treatment Note Next Visit Plan Gait training, strengthening, activity tolerance
--- NOTE | 2024-03-09 16:28 | PT.OTN ---
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 (03/09/24) Aphasia following unspecified cerebrovascular disease (03/09/24) Unsteadiness on feet (03/09/24) Other abnormalities of gait and mobility (03/09/24) Repeated falls (03/09/24) Weakness (03/09/24) Personal history of transient ischemic attack (TIA), and cerebral infarction without residual deficits (03/09/24) Physical Therapy Treatment Note PT-OP-A Visit Information Start: 01/31/24 14:55 Freq: Status: Active Protocol: Document 03/09/24 12:51 AB (Rec: 03/09/24 16:28 AB [id number]) Out-Patient Physical Therapy Visit Information Visit Information Visit Type Treatment Note Visit Start Time 13:49 Visit Stop Time 16:29 Visit Number 10 Number of MANAGER HOSPITALITY Visits 2 Evaluation Information Evaluation Date 01/31/24 PT-OP-B Current Condition Start: 01/31/24 14:55 Freq: Status: Active Protocol: Document 01/31/24 13:45 DCW (Rec: 01/31/24 17:08 DCW [id number]) Current Condition History of Current Condition Onset Date 2013 Current Complaints CVA, decrease in balance and activity tolerance History of Current Condition Pt is a 68 year old male who is 10 years s/p CVA which resulted in fairly severe right-sided hemiplegia. Pt has been seen at this facility multiple times off and on since his initial CVA to work on balance, gait, strength, activity toelrance, and functional mobility. Pt is largely non-verbal since his CVA. His attends today's evaluation reporting he has experienced a decline in function since he was last treated in PT (was last discharged 11/01/22). reports he was really struggling a few months ago, limited mobility and very limited energy, but they have recently had some changes to the treatment of his diabetes, which has helped. admits he still does not want to do a whole lot outside, and just seems to have a more difficult time moving around, appears to have greatly decreased confidence. Recently exhibiting slower gait. Also bring up possibility of getting w/c for longer outdoor activities, wondering about letter of medical necessity. PT-OP-C Subjective Start: 01/31/24 14:55 Freq: Status: Active Protocol: Document 03/09/24 12:51 AB (Rec: 03/09/24 16:28 AB [id number]) OP-PT Subjective Patient Comments Patient Comments PT ambulates with large based quad cane, step to pattern decreased weight shift right. Peña nods no when questioned if he has pain or has had falls slince previouse session . PT-OP-D Balance Start: 01/31/24 14:55 Freq: Status: Active Protocol: Document 01/31/24 13:45 DCW (Rec: 01/31/24 15:17 DCW [id number]) OP-PT Balance Assessment Standing Balance Static Standing Balance Ability Fair Dynamic Standing Balance Ability Fair Balance Tests Functional Reach Functional Reach Test 6 inches Functional Reach Impairment Rating 40 to <60% Impaired (Score 5-6 ) Romberg Romberg 30+ eyes open, 18 eyes closed Estrella Fall Scale Copyright Permission PT-OP-E Functional Tests Start: 01/31/24 14:55 Freq: Status: Active Protocol: Document 01/31/24 13:45 DCW (Rec: 01/31/24 15:17 DCW [id number]) Functional Tests 6 Minute Walk Test Distance 262' Device Used LBQC Comments 0.73 ft/sec 30 Second Sit to Stand Test Score x6 repetitions Comments UE use, uncontrolled descent Timed Up and Go (TUG) Score 44.32 Comments /c LBQC TUG Impairment Rating 100% Impaired (Score 20) PT-OP-G Mobility & Gait Start: 01/31/24 14:55 Freq: Status: Active Protocol: Document 01/31/24 13:45 DCW (Rec: 01/31/24 16:50 DCW [id number]) OP Gait Assessment Gait Gait Assistance Required: Standby Assistance Distance (Feet) 262 Assistive Devices Assistive Device Gait Belt,Large Based Quad Cane Gait Deviations General Gait Pattern Antalgic,Ataxic,Decreased Stride Length,Decreased Feet Clearance,Flexed Trunk,Lateral Trunk Lean,Step-to Gait Factors Limiting Gait Function Factors Limiting Gait Function Decreased Activity Tolerance, Decreased Strength,Difficulty Following Directions, Incoordination,Poor Balance, Poor Safety Awareness Stair Climbing Evaluation Evaluation Level of Assist On Stairs Standby Assistance Devices Stair Climbing Assistive Devices Left Railing,Right Railing Technique/Endurance Stair Climbing Direction Ascend and Descend Stair Climbing Technique Step to Step PT-OP-M Strength Start: 01/31/24 14:55 Freq: Status: Active Protocol: Document 01/31/24 13:45 DCW (Rec: 01/31/24 16:50 DCW [id number]) Hip Strength Hip Manual Muscle Testing Right Flexion (L2) 2+ Poor+ Abduction 2- Poor- Adduction 2+ Poor+ External Rotation 0 Zero Internal Rotation 0 Zero Left Flexion (L2) 4- Good- Abduction 4- Good- Adduction 4- Good- External Rotation 4+ Good+ Internal Rotation 4+ Good+ Knee Strength Knee Manual Muscle Testing Right Flexion (S2) 1 Trace Extension (L3) 3- Fair- Left Flexion (S2) 5 Normal Extension (L3) 5 Normal PT-OP-Q Treatments Start: 01/31/24 14:55 Freq: Status: Active Protocol: Document 03/09/24 12:51 AB (Rec: 03/09/24 16:28 AB [id number]) Therapeutic Exercises Sitting Exercises seated hip abduction Side right Equipment Used level one band, manual resistance Reps/Minutes X2 Comments unable Standing Exercises retro stepping Side bilateral Reps/Minutes 10 feet X 3 Comments CGA. VC for posture, tactile cues at pelvis occ resisted side stepping Standing Exercise Name CGA Side bilateral Equipment Used rail LUE support Reps/Minutes 10 fet left and right then 10 feet right Comments VC to avoid toeing out Other Exercises scale step ups Other Exercise Name with UE support right LE CGA Reps/Minutes X12 Comments to 160 lb force through right LE stagger stance sit to stand Other Exercise Name CGA right knee guarded Reps/Minutes X5 X 3 Comments assist to position left LE fwd Neuro Re-Education Treatment Balance Activities Balloon volley ball Details on floor, on foam then with left foot on foam right on floor. Reps/Duration 5 min Comments CGA to very minimal assist with one foot on faom step up taps Reps/Duration X5 X 2 Comments right leg tapping 2 inch step left LE step fwd foam Details Standing and romberg with and without large blue cushion Comments with visual scanning, head turns, and attempting to communicate with spouse CGA PT-OP-T Assessment and Plan Start: 01/31/24 14:55 Freq: Status: Active Protocol: Document 03/09/24 12:51 AB (Rec: 03/09/24 16:28 AB [id number]) Physical Therapy Assessment Goals Two Impairment Pt ambulates 262 feet during his 6MWT, for a gait speed of 0.73 ft/sec Care Home Goal (LTG) Pt to complete a 6MWT using a LBQC to ambulate >400', demonstrating an improved gait with a more efficient use of his AD LTG Duration 04/30/24 One Impairment Pt does not have an appropriate home exercise program Short Term Goal (STG) Pt to be independent and compliant with an appropriate HEP STG Duration 03/02/24 Assessment Summary Assessment Patient reports having no pain end of session Physical Therapy Plan Frequency and Duration Frequency of Treatment 2x/Week Plan of Care Start Date 01/31/24 Plan of Care End Date 04/30/24 Next Visit Focus/Plan Next Note Type Progress Note Next Visit Plan Gait training, strengthening, activity tolerance Progress note
--- NOTE | 2024-03-11 14:30 | PT.OTN ---
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 (03/11/24) Aphasia following unspecified cerebrovascular disease (03/11/24) Unsteadiness on feet (03/11/24) Other abnormalities of gait and mobility (03/11/24) Repeated falls (03/11/24) Weakness (03/11/24) Personal history of transient ischemic attack (TIA), and cerebral infarction without residual deficits (03/11/24) Physical Therapy Treatment Note PT-OP-A Visit Information Start: 01/31/24 14:55 Freq: Status: Active Protocol: Document 03/11/24 13:45 DCW (Rec: 03/11/24 14:30 DCW [id number]) Out-Patient Physical Therapy Visit Information Visit Information Visit Type Progress Note Visit Start Time 13:45 Visit Stop Time 14:30 Visit Number 11 Number of INTEGRATED MARKETING INTERN Visits 0 Evaluation Information Evaluation Date 01/31/24 PT-OP-B Current Condition Start: 01/31/24 14:55 Freq: Status: Active Protocol: Document 01/31/24 13:45 DCW (Rec: 01/31/24 17:08 DCW [id number]) Current Condition History of Current Condition Onset Date 2013 Current Complaints CVA, decrease in balance and activity tolerance History of Current Condition Pt is a 68 year old male who is 10 years s/p CVA which resulted in fairly severe right-sided hemiplegia. Pt has been seen at this facility multiple times off and on since his initial CVA to work on balance, gait, strength, activity toelrance, and functional mobility. Pt is largely non-verbal since his CVA. His attends today's evaluation reporting he has experienced a decline in function since he was last treated in PT (was last discharged 11/01/22). reports he was really struggling a few months ago, limited mobility and very limited energy, but they have recently had some changes to the treatment of his diabetes, which has helped. admits he still does not want to do a whole lot outside, and just seems to have a more difficult time moving around, appears to have greatly decreased confidence. Recently exhibiting slower gait. Also bring up possibility of getting w/c for longer outdoor activities, wondering about letter of medical necessity. PT-OP-C Subjective Start: 01/31/24 14:55 Freq: Status: Active Protocol: Document 03/11/24 13:45 DCW (Rec: 03/11/24 14:30 DCW [id number]) OP-PT Subjective Patient Comments Patient Comments Pt doing well today. PT-OP-D Balance Start: 01/31/24 14:55 Freq: Status: Active Protocol: Document 01/31/24 13:45 DCW (Rec: 01/31/24 15:17 DCW [id number]) OP-PT Balance Assessment Standing Balance Static Standing Balance Ability Fair Dynamic Standing Balance Ability Fair Balance Tests Functional Reach Functional Reach Test 6 inches Functional Reach Impairment Rating 40 to <60% Impaired (Score 5-6 ) Romberg Romberg 30+ eyes open, 18 eyes closed Estrella Fall Scale Copyright Permission PT-OP-E Functional Tests Start: 01/31/24 14:55 Freq: Status: Active Protocol: Document 01/31/24 13:45 DCW (Rec: 01/31/24 15:17 DCW [id number]) Functional Tests 6 Minute Walk Test Distance 262' Device Used LBQC Comments 0.73 ft/sec 30 Second Sit to Stand Test Score x6 repetitions Comments UE use, uncontrolled descent Timed Up and Go (TUG) Score 44.32 Comments /c LBQC TUG Impairment Rating 100% Impaired (Score 20) PT-OP-G Mobility & Gait Start: 01/31/24 14:55 Freq: Status: Active Protocol: Document 01/31/24 13:45 DCW (Rec: 01/31/24 16:50 DCW [id number]) OP Gait Assessment Gait Gait Assistance Required: Standby Assistance Distance (Feet) 262 Assistive Devices Assistive Device Gait Belt,Large Based Quad Cane Gait Deviations General Gait Pattern Antalgic,Ataxic,Decreased Stride Length,Decreased Feet Clearance,Flexed Trunk,Lateral Trunk Lean,Step-to Gait Factors Limiting Gait Function Factors Limiting Gait Function Decreased Activity Tolerance, Decreased Strength,Difficulty Following Directions, Incoordination,Poor Balance, Poor Safety Awareness Stair Climbing Evaluation Evaluation Level of Assist On Stairs Standby Assistance Devices Stair Climbing Assistive Devices Left Railing,Right Railing Technique/Endurance Stair Climbing Direction Ascend and Descend Stair Climbing Technique Step to Step PT-OP-M Strength Start: 01/31/24 14:55 Freq: Status: Active Protocol: Document 01/31/24 13:45 DCW (Rec: 01/31/24 16:50 DCW [id number]) Hip Strength Hip Manual Muscle Testing Right Flexion (L2) 2+ Poor+ Abduction 2- Poor- Adduction 2+ Poor+ External Rotation 0 Zero Internal Rotation 0 Zero Left Flexion (L2) 4- Good- Abduction 4- Good- Adduction 4- Good- External Rotation 4+ Good+ Internal Rotation 4+ Good+ Knee Strength Knee Manual Muscle Testing Right Flexion (S2) 1 Trace Extension (L3) 3- Fair- Left Flexion (S2) 5 Normal Extension (L3) 5 Normal PT-OP-Q Treatments Start: 01/31/24 14:55 Freq: Status: Active Protocol: Document 03/11/24 13:45 DCW (Rec: 03/11/24 14:30 DCW [id number]) Gym Equipment Shuttle Balance red clips Comments Wide NATE, Staggered Therapeutic Exercises Other Exercises Step-ups Other Exercise Name Step-ups Side right Equipment Used 4 step Comments VCs to decrease UE use Gait Training Gait Activity SBQC Comments 6MWT: 261' Neuro Re-Education Treatment Balance Activities Tandem Details Tandem Stance Balloon volley ball Surface L AirEx R floor, then B AirEx Comments CGA Uneven Gait Comments Ambulating over blue pads with obstacles underneath PT-OP-T Assessment and Plan Start: 01/31/24 14:55 Freq: Status: Active Protocol: Document 03/11/24 13:45 DCW (Rec: 03/11/24 14:30 DCW [id number]) Physical Therapy Assessment Goals Two Impairment Pt ambulates 262 feet during his 6MWT, for a gait speed of 0.73 ft/sec Real Estate Economist Goal (LTG) Pt to complete a 6MWT using a LBQC to ambulate >400', demonstrating an improved gait with a more efficient use of his AD LTG Duration 04/30/24 One Impairment Pt does not have an appropriate home exercise program Short Term Goal (STG) Pt to be independent and compliant with an appropriate HEP STG Duration 03/02/24 Assessment Summary Assessment No change with 6MWT, but pt otherwise displaying some improvements, mainly with right quad function. Pt able to perform LAQ with increased weight. Is demonstrating an increase recently in R LE tremors when fatigued, which has slightly limited some participation in PT, mainly leading to longer rest breaks. Physical Therapy Plan Frequency and Duration Frequency of Treatment 2x/Week Plan of Care Start Date 01/31/24 Plan of Care End Date 04/30/24 Therapeutic Interventions Therapeutic Interventions Balance Training,Gait Training ,Home Exercise Program,Manual Therapy,Neuromuscular Re- education,Patient/Caregiver Education,Self-Care/Home Management,Soft Tissue Mobilization,Therapeutic Activities,Therapeutic Exercises,Vestibular Rehabilitation,Wheelchair Management Next Visit Focus/Plan Next Note Type Treatment Note Next Visit Plan Gait training, strengthening, activity tolerance
--- NOTE | 2024-03-17 15:12 | PT.OTN ---
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 (03/17/24) Aphasia following unspecified cerebrovascular disease (03/17/24) Unsteadiness on feet (03/17/24) Other abnormalities of gait and mobility (03/17/24) Repeated falls (03/17/24) Weakness (03/17/24) Personal history of transient ischemic attack (TIA), and cerebral infarction without residual deficits (03/17/24) Physical Therapy Treatment Note PT-OP-A Visit Information Start: 01/31/24 14:55 Freq: Status: Active Protocol: Document 03/17/24 14:34 SP (Rec: 03/17/24 15:40 SP [id number]) Out-Patient Physical Therapy Visit Information Visit Information Visit Type Treatment Note Visit Start Time 14:34 Visit Stop Time 15:12 Visit Number 12 Number of DOCK OPERATOR Visits 1 Evaluation Information Evaluation Date 01/31/24 PT-OP-B Current Condition Start: 01/31/24 14:55 Freq: Status: Active Protocol: Document 01/31/24 13:45 DCW (Rec: 01/31/24 17:08 DCW [id number]) Current Condition History of Current Condition Onset Date 2013 Current Complaints CVA, decrease in balance and activity tolerance History of Current Condition Pt is a 68 year old male who is 10 years s/p CVA which resulted in fairly severe right-sided hemiplegia. Pt has been seen at this facility multiple times off and on since his initial CVA to work on balance, gait, strength, activity toelrance, and functional mobility. Pt is largely non-verbal since his CVA. His attends today's evaluation reporting he has experienced a decline in function since he was last treated in PT (was last discharged 11/01/22). reports he was really struggling a few months ago, limited mobility and very limited energy, but they have recently had some changes to the treatment of his diabetes, which has helped. admits he still does not want to do a whole lot outside, and just seems to have a more difficult time moving around, appears to have greatly decreased confidence. Recently exhibiting slower gait. Also bring up possibility of getting w/c for longer outdoor activities, wondering about letter of medical necessity. PT-OP-C Subjective Start: 01/31/24 14:55 Freq: Status: Active Protocol: Document 03/17/24 14:34 SP (Rec: 03/17/24 15:40 SP [id number]) OP-PT Subjective Patient Comments Patient Comments Pt nodded yes indicating doing well when asked. PT-OP-D Balance Start: 01/31/24 14:55 Freq: Status: Active Protocol: Document 01/31/24 13:45 DCW (Rec: 01/31/24 15:17 DCW [id number]) OP-PT Balance Assessment Standing Balance Static Standing Balance Ability Fair Dynamic Standing Balance Ability Fair Balance Tests Functional Reach Functional Reach Test 6 inches Functional Reach Impairment Rating 40 to <60% Impaired (Score 5-6 ) Romberg Romberg 30+ eyes open, 18 eyes closed Estrella Fall Scale Copyright Permission PT-OP-E Functional Tests Start: 01/31/24 14:55 Freq: Status: Active Protocol: Document 01/31/24 13:45 DCW (Rec: 01/31/24 15:17 DCW [id number]) Functional Tests 6 Minute Walk Test Distance 262' Device Used LBQC Comments 0.73 ft/sec 30 Second Sit to Stand Test Score x6 repetitions Comments UE use, uncontrolled descent Timed Up and Go (TUG) Score 44.32 Comments /c LBQC TUG Impairment Rating 100% Impaired (Score 20) PT-OP-G Mobility & Gait Start: 01/31/24 14:55 Freq: Status: Active Protocol: Document 01/31/24 13:45 DCW (Rec: 01/31/24 16:50 DCW [id number]) OP Gait Assessment Gait Gait Assistance Required: Standby Assistance Distance (Feet) 262 Assistive Devices Assistive Device Gait Belt,Large Based Quad Cane Gait Deviations General Gait Pattern Antalgic,Ataxic,Decreased Stride Length,Decreased Feet Clearance,Flexed Trunk,Lateral Trunk Lean,Step-to Gait Factors Limiting Gait Function Factors Limiting Gait Function Decreased Activity Tolerance, Decreased Strength,Difficulty Following Directions, Incoordination,Poor Balance, Poor Safety Awareness Stair Climbing Evaluation Evaluation Level of Assist On Stairs Standby Assistance Devices Stair Climbing Assistive Devices Left Railing,Right Railing Technique/Endurance Stair Climbing Direction Ascend and Descend Stair Climbing Technique Step to Step PT-OP-M Strength Start: 01/31/24 14:55 Freq: Status: Active Protocol: Document 01/31/24 13:45 DCW (Rec: 01/31/24 16:50 DCW [id number]) Hip Strength Hip Manual Muscle Testing Right Flexion (L2) 2+ Poor+ Abduction 2- Poor- Adduction 2+ Poor+ External Rotation 0 Zero Internal Rotation 0 Zero Left Flexion (L2) 4- Good- Abduction 4- Good- Adduction 4- Good- External Rotation 4+ Good+ Internal Rotation 4+ Good+ Knee Strength Knee Manual Muscle Testing Right Flexion (S2) 1 Trace Extension (L3) 3- Fair- Left Flexion (S2) 5 Normal Extension (L3) 5 Normal PT-OP-Q Treatments Start: 01/31/24 14:55 Freq: Status: Active Protocol: Document 03/17/24 14:34 SP (Rec: 03/17/24 15:40 SP [id number]) Cardio Equipment Recumbent Stepper (Sci-Fit) Duration (Minutes) 6 Resistance 3.5 Seat Position 11 Other BLE, LUE- occ reposition RLE on foot plate Gym Equipment Shuttle Recovery Bilateral Squats Details ball between knees Resistance 62#(2 new bands)>50 # Shuttle Recovery Platform Stable Reps/Time 10>5 rep then stopped due to c /o R knee pain scrunch faces Therapeutic Exercises Sitting Exercises LAQ Sitting Exercise Name LAQ Side bilateral Resistance AROM RLE, AROM hold LLE Reps/Minutes RLE 2x10, LLE 5 SH x10 Comments between shuttle and stand activities Other Exercises Step-ups Other Exercise Name Step-ups Side right Equipment Used 4 step, inside //bar, CGA Reps/Minutes x10 Comments VCs to decrease UE use on L // bar Gait Training Gait Activity no AD Description forward then back stepping Device Used inside //bars Level of Assistance CG/ Min A Surface floor Distance/Duration 10 ft 1 length each direction Treatment Focus increase RLE WB Comments anterior R knee support as needed Neuro Re-Education Treatment Balance Activities fwd, retro stepping in //bars Details GB ,CGA Equipment inside //bars Reps/Duration 10 ft length each directions Comments anterior R knee as needed for safety and mod cues for sequencing each LE, TKE on R during LLE advancement. uneven squat ball transfer Details GAit belt, cross body squat ball transfer bwtn cones Surface mat, 5 sets cones/balls Equipment PRN QC available front if needed Comments therapist CG/ Min A trunk stability during RLE WB step fwd, CGA during squat- no LOB, light anterior R knee support as needed during RLE WB and LLE advancement to each cone. Use QC during step up/down on mat. PT-OP-T Assessment and Plan Start: 01/31/24 14:55 Freq: Status: Active Protocol: Document 03/17/24 14:34 SP (Rec: 03/17/24 15:40 SP [id number]) Physical Therapy Assessment Goals Two Impairment Pt ambulates 262 feet during his 6MWT, for a gait speed of 0.73 ft/sec Mcfp Goal (LTG) Pt to complete a 6MWT using a LBQC to ambulate >400', demonstrating an improved gait with a more efficient use of his AD LTG Duration 04/30/24 One Impairment Pt does not have an appropriate home exercise program Short Term Goal (STG) Pt to be independent and compliant with an appropriate HEP STG Duration 03/02/24 Assessment Summary Assessment Pt demonstrated good effort, improved WB into LLE with reduction to no UE support during many standing activities. Improved progressing standing stability uneven surface squatting then step fwd no UE support, R quad tiring/quivering by end tx trying maintain TKE during LLE advancement, provided support anterior R knee and use GB for trunk wt shift complete advancement. Reduction resistance and reps RLE on shuttle recovery due to c/o pointing to R knee with grimising facial expressions then stated better but declined RLE single leg pressing. Physical Therapy Plan Frequency and Duration Frequency of Treatment 2x/Week Plan of Care Start Date 01/31/24 Plan of Care End Date 04/30/24 Therapeutic Interventions Therapeutic Interventions Balance Training,Gait Training ,Home Exercise Program,Manual Therapy,Neuromuscular Re- education,Patient/Caregiver Education,Self-Care/Home Management,Soft Tissue Mobilization,Therapeutic Activities,Therapeutic Exercises,Vestibular Rehabilitation,Wheelchair Management Next Visit Focus/Plan Next Note Type Treatment Note Next Visit Plan Assess tolerance resistance shuttle recovery on RLE and uneven surface activities without UE support. POC: Gait training, strengthening, activity tolerance
--- NOTE | 2024-03-20 12:00 | PT.OTN ---
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 (03/20/24) Aphasia following unspecified cerebrovascular disease (03/20/24) Unsteadiness on feet (03/20/24) Other abnormalities of gait and mobility (03/20/24) Repeated falls (03/20/24) Weakness (03/20/24) Personal history of transient ischemic attack (TIA), and cerebral infarction without residual deficits (03/20/24) Physical Therapy Treatment Note PT-OP-A Visit Information Start: 01/31/24 14:55 Freq: Status: Active Protocol: Document 03/20/24 11:20 SP (Rec: 03/20/24 12:25 SP [id number]) Out-Patient Physical Therapy Visit Information Visit Information Visit Type Treatment Note Visit Start Time 11:20 Visit Stop Time 12:00 Visit Number 13 Number of AUTOMOBILE ENGINE ASSEMBLER Visits 2 Evaluation Information Evaluation Date 01/31/24 PT-OP-B Current Condition Start: 01/31/24 14:55 Freq: Status: Active Protocol: Document 01/31/24 13:45 DCW (Rec: 01/31/24 17:08 DCW [id number]) Current Condition History of Current Condition Onset Date 2013 Current Complaints CVA, decrease in balance and activity tolerance History of Current Condition Pt is a 68 year old male who is 10 years s/p CVA which resulted in fairly severe right-sided hemiplegia. Pt has been seen at this facility multiple times off and on since his initial CVA to work on balance, gait, strength, activity toelrance, and functional mobility. Pt is largely non-verbal since his CVA. His attends today's evaluation reporting he has experienced a decline in function since he was last treated in PT (was last discharged 11/01/22). reports he was really struggling a few months ago, limited mobility and very limited energy, but they have recently had some changes to the treatment of his diabetes, which has helped. admits he still does not want to do a whole lot outside, and just seems to have a more difficult time moving around, appears to have greatly decreased confidence. Recently exhibiting slower gait. Also bring up possibility of getting w/c for longer outdoor activities, wondering about letter of medical necessity. PT-OP-C Subjective Start: 01/31/24 14:55 Freq: Status: Active Protocol: Document 03/20/24 11:20 SP (Rec: 03/20/24 12:25 SP [id number]) OP-PT Subjective Patient Comments Patient Comments Pt arrives with . She reported pt had an aspirating insident last Sat with difficulty swallowing hashbrowns, could breath but couldn't get to clear esphogaus completely so called EMS. foreign service officer provided med to relax throat muscles and able to drink to clear but went to ER for safety assessment support due lungs didn't sound clear. Is currently on medication for this now. Pt is also having some low blood sugars this am 55 impoved eating breakfast to 120. 90s at arriva, asked be mindful of activity, stayed distance supervision with tx while she awaiting and communicating with physician response to meds support glucose. is waiting to hear back from phyician if need referral to speech therapy again to support improvement musculature in swallowing. PT-OP-D Balance Start: 01/31/24 14:55 Freq: Status: Active Protocol: Document 01/31/24 13:45 DCW (Rec: 01/31/24 15:17 DCW [id number]) OP-PT Balance Assessment Standing Balance Static Standing Balance Ability Fair Dynamic Standing Balance Ability Fair Balance Tests Functional Reach Functional Reach Test 6 inches Functional Reach Impairment Rating 40 to <60% Impaired (Score 5-6 ) Romberg Romberg 30+ eyes open, 18 eyes closed Estrella Fall Scale Copyright Permission PT-OP-E Functional Tests Start: 01/31/24 14:55 Freq: Status: Active Protocol: Document 01/31/24 13:45 DCW (Rec: 01/31/24 15:17 DCW [id number]) Functional Tests 6 Minute Walk Test Distance 262' Device Used LBQC Comments 0.73 ft/sec 30 Second Sit to Stand Test Score x6 repetitions Comments UE use, uncontrolled descent Timed Up and Go (TUG) Score 44.32 Comments /c LBQC TUG Impairment Rating 100% Impaired (Score 20) PT-OP-G Mobility & Gait Start: 01/31/24 14:55 Freq: Status: Active Protocol: Document 01/31/24 13:45 DCW (Rec: 01/31/24 16:50 DCW [id number]) OP Gait Assessment Gait Gait Assistance Required: Standby Assistance Distance (Feet) 262 Assistive Devices Assistive Device Gait Belt,Large Based Quad Cane Gait Deviations General Gait Pattern Antalgic,Ataxic,Decreased Stride Length,Decreased Feet Clearance,Flexed Trunk,Lateral Trunk Lean,Step-to Gait Factors Limiting Gait Function Factors Limiting Gait Function Decreased Activity Tolerance, Decreased Strength,Difficulty Following Directions, Incoordination,Poor Balance, Poor Safety Awareness Stair Climbing Evaluation Evaluation Level of Assist On Stairs Standby Assistance Devices Stair Climbing Assistive Devices Left Railing,Right Railing Technique/Endurance Stair Climbing Direction Ascend and Descend Stair Climbing Technique Step to Step PT-OP-M Strength Start: 01/31/24 14:55 Freq: Status: Active Protocol: Document 01/31/24 13:45 DCW (Rec: 01/31/24 16:50 DCW [id number]) Hip Strength Hip Manual Muscle Testing Right Flexion (L2) 2+ Poor+ Abduction 2- Poor- Adduction 2+ Poor+ External Rotation 0 Zero Internal Rotation 0 Zero Left Flexion (L2) 4- Good- Abduction 4- Good- Adduction 4- Good- External Rotation 4+ Good+ Internal Rotation 4+ Good+ Knee Strength Knee Manual Muscle Testing Right Flexion (S2) 1 Trace Extension (L3) 3- Fair- Left Flexion (S2) 5 Normal Extension (L3) 5 Normal PT-OP-Q Treatments Start: 01/31/24 14:55 Freq: Status: Active Protocol: Document 03/20/24 11:20 SP (Rec: 03/20/24 12:25 SP [id number]) Cardio Equipment Recumbent Elliptical (Biodex) Duration (Minutes) 4 Resistance 4>3 Seat Position 9 (reduction time & resistance 5>4 due to seemed strenuous today Other left UE/ ralph LE's, occ tactile cue LLE abd midline neutral Therapeutic Exercises Sitting Exercises Hamstring Curls Sitting Exercise Name Hamstring Curls Side right Resistance R rolling scooter + L2 TB Reps/Minutes x10 R Comments Tactile Cues at HS R- improved , guide scooter Standing Exercises resisted side stepping Standing Exercise Name CGA Side bilateral Resistance TB #2 at shins Equipment Used rail LUE support Reps/Minutes 15 ft 1 lap Comments VC to avoid toeing out Neuro Re-Education Treatment Balance Activities fwd, retro stepping in //bars Details GB ,CGA Equipment near (R side at rail) Reps/Duration 10 ft length each directions Comments Cued TKE R during mid stance time, mod cues for sequencing each LE. step up taps Details step taps RLE Surface CGA via GB Equipment 4 step, L rail nearby as needed- contact x1 Reps/Duration x12 reps Comments right leg tapping 4 inch step, stop rest approx every 3 steps for stab recovery. PT-OP-T Assessment and Plan Start: 01/31/24 14:55 Freq: Status: Active Protocol: Document 03/20/24 11:20 SP (Rec: 03/20/24 12:25 SP [id number]) Physical Therapy Assessment Goals Two Impairment Pt ambulates 262 feet during his 6MWT, for a gait speed of 0.73 ft/sec Le[employer] Parts Cutter Goal (LTG) Pt to complete a 6MWT using a LBQC to ambulate >400', demonstrating an improved gait with a more efficient use of his AD LTG Duration 04/30/24 One Impairment Pt does not have an appropriate home exercise program Short Term Goal (STG) Pt to be independent and compliant with an appropriate HEP STG Duration 03/02/24 Assessment Summary Assessment Pt tolerated activity well, requried seated rests for tiring recovery, nodding head indicating yes when asked throughout tx if feeling ok and side to side indicating no when asked if any dizziness. gave feedback on external monitor during tx blood sugar started to decreased to 73 so AUTOMOBILE ENGINE ASSEMBLER provided apple juice x2 during tx and robert crackers to support returning to 83 by end of tx. Physical Therapy Plan Frequency and Duration Frequency of Treatment 2x/Week Plan of Care Start Date 01/31/24 Plan of Care End Date 04/30/24 Therapeutic Interventions Therapeutic Interventions Balance Training,Gait Training ,Home Exercise Program,Manual Therapy,Neuromuscular Re- education,Patient/Caregiver Education,Self-Care/Home Management,Soft Tissue Mobilization,Therapeutic Activities,Therapeutic Exercises,Vestibular Rehabilitation,Wheelchair Management Next Visit Focus/Plan Next Note Type Treatment Note Next Visit Plan CHeck with pre tx how pt blood sugars are and if anything we need to know for PT. POC : Assess tolerance ther ex throughout tx: resistance shuttle recovery on RLE and uneven surface activities without UE support. POC: Gait training, strengthening, activity tolerance
--- NOTE | 2024-03-24 09:22 | PT.OTN ---
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 (03/24/24) Aphasia following unspecified cerebrovascular disease (03/24/24) Unsteadiness on feet (03/24/24) Other abnormalities of gait and mobility (03/24/24) Repeated falls (03/24/24) Weakness (03/24/24) Personal history of transient ischemic attack (TIA), and cerebral infarction without residual deficits (03/24/24) Physical Therapy Treatment Note PT-OP-A Visit Information Start: 01/31/24 14:55 Freq: Status: Active Protocol: Document 03/24/24 08:05 AB (Rec: 03/24/24 09:02 AB [id number]) Out-Patient Physical Therapy Visit Information Visit Information Visit Type Treatment Note Visit Start Time 08:17 Visit Stop Time 09:00 Visit Number 14 Number of TOLL TESTBOARD WORKER Visits 3 Evaluation Information Evaluation Date 01/31/24 PT-OP-B Current Condition Start: 01/31/24 14:55 Freq: Status: Active Protocol: Document 01/31/24 13:45 DCW (Rec: 01/31/24 17:08 DCW [id number]) Current Condition History of Current Condition Onset Date 2013 Current Complaints CVA, decrease in balance and activity tolerance History of Current Condition Pt is a 68 year old male who is 10 years s/p CVA which resulted in fairly severe right-sided hemiplegia. Pt has been seen at this facility multiple times off and on since his initial CVA to work on balance, gait, strength, activity toelrance, and functional mobility. Pt is largely non-verbal since his CVA. His attends today's evaluation reporting he has experienced a decline in function since he was last treated in PT (was last discharged 11/01/22). reports he was really struggling a few months ago, limited mobility and very limited energy, but they have recently had some changes to the treatment of his diabetes, which has helped. admits he still does not want to do a whole lot outside, and just seems to have a more difficult time moving around, appears to have greatly decreased confidence. Recently exhibiting slower gait. Also bring up possibility of getting w/c for longer outdoor activities, wondering about letter of medical necessity. PT-OP-C Subjective Start: 01/31/24 14:55 Freq: Status: Active Protocol: Document 03/24/24 08:05 AB (Rec: 03/24/24 09:02 AB [id number]) OP-PT Subjective Patient Comments Patient Comments reports sugars at 145 this morning, reports sugars have been low this week and she gave him a smoothie prior to this session. also reports patient has been more tired this week, attributes to sugar being lower this week. PT-OP-D Balance Start: 01/31/24 14:55 Freq: Status: Active Protocol: Document 01/31/24 13:45 DCW (Rec: 01/31/24 15:17 DCW [id number]) OP-PT Balance Assessment Standing Balance Static Standing Balance Ability Fair Dynamic Standing Balance Ability Fair Balance Tests Functional Reach Functional Reach Test 6 inches Functional Reach Impairment Rating 40 to <60% Impaired (Score 5-6 ) Romberg Romberg 30+ eyes open, 18 eyes closed Estrella Fall Scale Copyright Permission PT-OP-E Functional Tests Start: 01/31/24 14:55 Freq: Status: Active Protocol: Document 01/31/24 13:45 DCW (Rec: 01/31/24 15:17 DCW [id number]) Functional Tests 6 Minute Walk Test Distance 262' Device Used LBQC Comments 0.73 ft/sec 30 Second Sit to Stand Test Score x6 repetitions Comments UE use, uncontrolled descent Timed Up and Go (TUG) Score 44.32 Comments /c LBQC TUG Impairment Rating 100% Impaired (Score 20) PT-OP-G Mobility & Gait Start: 01/31/24 14:55 Freq: Status: Active Protocol: Document 01/31/24 13:45 DCW (Rec: 01/31/24 16:50 DCW [id number]) OP Gait Assessment Gait Gait Assistance Required: Standby Assistance Distance (Feet) 262 Assistive Devices Assistive Device Gait Belt,Large Based Quad Cane Gait Deviations General Gait Pattern Antalgic,Ataxic,Decreased Stride Length,Decreased Feet Clearance,Flexed Trunk,Lateral Trunk Lean,Step-to Gait Factors Limiting Gait Function Factors Limiting Gait Function Decreased Activity Tolerance, Decreased Strength,Difficulty Following Directions, Incoordination,Poor Balance, Poor Safety Awareness Stair Climbing Evaluation Evaluation Level of Assist On Stairs Standby Assistance Devices Stair Climbing Assistive Devices Left Railing,Right Railing Technique/Endurance Stair Climbing Direction Ascend and Descend Stair Climbing Technique Step to Step PT-OP-M Strength Start: 01/31/24 14:55 Freq: Status: Active Protocol: Document 01/31/24 13:45 DCW (Rec: 01/31/24 16:50 DCW [id number]) Hip Strength Hip Manual Muscle Testing Right Flexion (L2) 2+ Poor+ Abduction 2- Poor- Adduction 2+ Poor+ External Rotation 0 Zero Internal Rotation 0 Zero Left Flexion (L2) 4- Good- Abduction 4- Good- Adduction 4- Good- External Rotation 4+ Good+ Internal Rotation 4+ Good+ Knee Strength Knee Manual Muscle Testing Right Flexion (S2) 1 Trace Extension (L3) 3- Fair- Left Flexion (S2) 5 Normal Extension (L3) 5 Normal PT-OP-Q Treatments Start: 01/31/24 14:55 Freq: Status: Active Protocol: Document 03/24/24 08:05 AB (Rec: 03/24/24 09:02 AB [id number]) Therapeutic Exercises Standing Exercises retro stepping Side bilateral Reps/Minutes 10 feet X 3 Comments CGA. VC for posture, tactile cues at pelvis occ resisted side stepping Standing Exercise Name CGA Side bilateral Resistance TB #2 above knees Equipment Used rail LUE support Reps/Minutes 10 feet X 2 Comments VC to avoid toeing out, eyes off feet, facilitation at hips Other Exercises weight shifting Other Exercise Name with and without UE use Side bilateral Equipment Used on floor and on foam pad Reps/Minutes X 10 X 3 Comments AP on floor and on foam, lateral on floor CGA scale step ups Other Exercise Name with UE support right LE CGA Reps/Minutes X10 X 2 Comments to 135 lb force through right LE intermittently stagger stance sit to stand Other Exercise Name CGA right knee guarded Reps/Minutes X10 X 2 Comments assist to position left LE fwd Gait Training Gait Activity SBQC Distance/Duration 16 ft and 12 feet Treatment Focus facilitation right LE through swing phase Comments cga, VC to take a larger step left LE and for posture/eyes off feet PT-OP-T Assessment and Plan Start: 01/31/24 14:55 Freq: Status: Active Protocol: Document 03/24/24 08:05 AB (Rec: 03/24/24 09:02 AB [id number]) Physical Therapy Assessment Goals Two Impairment Pt ambulates 262 feet during his 6MWT, for a gait speed of 0.73 ft/sec Deep Submergence Vehicle Crewmember Goal (LTG) Pt to complete a 6MWT using a LBQC to ambulate >400', demonstrating an improved gait with a more efficient use of his AD LTG Duration 04/30/24 One Impairment Pt does not have an appropriate home exercise program Short Term Goal (STG) Pt to be independent and compliant with an appropriate HEP STG Duration 03/02/24 Assessment Summary Assessment Patient reports feeling dizzy X2 this session, requests seated rest X3. 119/77 HR 95 BPM left UE, Blood sugar 172 end of session , did increase into the 180's during session ( monitoring throughout) Noted increased difficulty positioning right foot during side stepping in // bars with eyes on sign in clinic rather than feet. Physical Therapy Plan Frequency and Duration Frequency of Treatment 2x/Week Plan of Care Start Date 01/31/24 Plan of Care End Date 04/30/24 Next Visit Focus/Plan Next Note Type Treatment Note Next Visit Plan CHeck with pre tx how pt blood sugars are and if anything we need to know for PT. POC : Assess tolerance ther ex throughout tx: resistance shuttle recovery on RLE and uneven surface activities without UE support. POC: Gait training, strengthening, activity tolerance Possibly gait training pre and post supine to and from sit.
--- NOTE | 2024-04-01 10:28 | PT.OTN ---
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 (04/01/24) Aphasia following unspecified cerebrovascular disease (04/01/24) Unsteadiness on feet (04/01/24) Other abnormalities of gait and mobility (04/01/24) Repeated falls (04/01/24) Weakness (04/01/24) Personal history of transient ischemic attack (TIA), and cerebral infarction without residual deficits (04/01/24) Physical Therapy Treatment Note PT-OP-A Visit Information Start: 01/31/24 14:55 Freq: Status: Active Protocol: Document 04/01/24 09:45 DCW (Rec: 04/01/24 10:28 DCW [id number]) Out-Patient Physical Therapy Visit Information Visit Information Visit Type Treatment Note Visit Start Time 09:45 Visit Stop Time 10:30 Visit Number 15 Number of SENIOR ARCHITECT Visits 0 Evaluation Information Evaluation Date 01/31/24 PT-OP-B Current Condition Start: 01/31/24 14:55 Freq: Status: Active Protocol: Document 01/31/24 13:45 DCW (Rec: 01/31/24 17:08 DCW [id number]) Current Condition History of Current Condition Onset Date 2013 Current Complaints CVA, decrease in balance and activity tolerance History of Current Condition Pt is a 68 year old male who is 10 years s/p CVA which resulted in fairly severe right-sided hemiplegia. Pt has been seen at this facility multiple times off and on since his initial CVA to work on balance, gait, strength, activity toelrance, and functional mobility. Pt is largely non-verbal since his CVA. His attends today's evaluation reporting he has experienced a decline in function since he was last treated in PT (was last discharged 11/01/22). reports he was really struggling a few months ago, limited mobility and very limited energy, but they have recently had some changes to the treatment of his diabetes, which has helped. admits he still does not want to do a whole lot outside, and just seems to have a more difficult time moving around, appears to have greatly decreased confidence. Recently exhibiting slower gait. Also bring up possibility of getting w/c for longer outdoor activities, wondering about letter of medical necessity. PT-OP-C Subjective Start: 01/31/24 14:55 Freq: Status: Active Protocol: Document 04/01/24 09:45 DCW (Rec: 04/01/24 10:28 DCW [id number]) OP-PT Subjective Patient Comments Patient Comments Pt indicates he is doing well. PT-OP-D Balance Start: 01/31/24 14:55 Freq: Status: Active Protocol: Document 01/31/24 13:45 DCW (Rec: 01/31/24 15:17 DCW [id number]) OP-PT Balance Assessment Standing Balance Static Standing Balance Ability Fair Dynamic Standing Balance Ability Fair Balance Tests Functional Reach Functional Reach Test 6 inches Functional Reach Impairment Rating 40 to <60% Impaired (Score 5-6 ) Romberg Romberg 30+ eyes open, 18 eyes closed Estrella Fall Scale Copyright Permission PT-OP-E Functional Tests Start: 01/31/24 14:55 Freq: Status: Active Protocol: Document 01/31/24 13:45 DCW (Rec: 01/31/24 15:17 DCW [id number]) Functional Tests 6 Minute Walk Test Distance 262' Device Used LBQC Comments 0.73 ft/sec 30 Second Sit to Stand Test Score x6 repetitions Comments UE use, uncontrolled descent Timed Up and Go (TUG) Score 44.32 Comments /c LBQC TUG Impairment Rating 100% Impaired (Score 20) PT-OP-G Mobility & Gait Start: 01/31/24 14:55 Freq: Status: Active Protocol: Document 01/31/24 13:45 DCW (Rec: 01/31/24 16:50 DCW [id number]) OP Gait Assessment Gait Gait Assistance Required: Standby Assistance Distance (Feet) 262 Assistive Devices Assistive Device Gait Belt,Large Based Quad Cane Gait Deviations General Gait Pattern Antalgic,Ataxic,Decreased Stride Length,Decreased Feet Clearance,Flexed Trunk,Lateral Trunk Lean,Step-to Gait Factors Limiting Gait Function Factors Limiting Gait Function Decreased Activity Tolerance, Decreased Strength,Difficulty Following Directions, Incoordination,Poor Balance, Poor Safety Awareness Stair Climbing Evaluation Evaluation Level of Assist On Stairs Standby Assistance Devices Stair Climbing Assistive Devices Left Railing,Right Railing Technique/Endurance Stair Climbing Direction Ascend and Descend Stair Climbing Technique Step to Step PT-OP-M Strength Start: 01/31/24 14:55 Freq: Status: Active Protocol: Document 01/31/24 13:45 DCW (Rec: 01/31/24 16:50 DCW [id number]) Hip Strength Hip Manual Muscle Testing Right Flexion (L2) 2+ Poor+ Abduction 2- Poor- Adduction 2+ Poor+ External Rotation 0 Zero Internal Rotation 0 Zero Left Flexion (L2) 4- Good- Abduction 4- Good- Adduction 4- Good- External Rotation 4+ Good+ Internal Rotation 4+ Good+ Knee Strength Knee Manual Muscle Testing Right Flexion (S2) 1 Trace Extension (L3) 3- Fair- Left Flexion (S2) 5 Normal Extension (L3) 5 Normal PT-OP-Q Treatments Start: 01/31/24 14:55 Freq: Status: Active Protocol: Document 04/01/24 09:45 DCW (Rec: 04/01/24 10:28 MNW [id number]) Cardio Equipment Recumbent Elliptical (BiodYesWeAd) Duration (Minutes) 5 Resistance 5 Seat Position 10 Other left UE/ ralph LE's, occ tactile cue LLE abd midline neutral Gym Equipment Shuttle Recovery Unilateral Squats Resistance R 25#, L 37# (new band both) Shuttle Recovery Platform Stable Reps/Time x15 Bilateral Squats Details ball between knees Resistance 62#(2 new bands)>50 # Shuttle Recovery Platform Stable Reps/Time 10>5 rep then stopped due to c /o R knee pain scrunch faces Shuttle Balance red clips Comments Wide NATE, Staggered Neuro Re-Education Treatment Balance Activities fwd, retro stepping in //bars Details Retro ambulation Equipment // bars Tandem Details Tandem Stance step up taps Details step taps B Surface CGA via GB Equipment 6 step foam Details [place] Comments NBOS while hitting balls with [place] racquet PT-OP-T Assessment and Plan Start: 01/31/24 14:55 Freq: Status: Active Protocol: Document 04/01/24 09:45 DCW (Rec: 04/01/24 10:28 MNW [id number]) Physical Therapy Assessment Impairments Impairments Activity Tolerance,Balance, Coordination,Functional Activities,Functional Mobility ,Gait,ROM,Soft Tissue Mobility ,Strength,Tone,Transfers Goals Two Impairment Pt ambulates 262 feet during his 6MWT, for a gait speed of 0.73 ft/sec Shelter Goal (LTG) Pt to complete a 6MWT using a LBQC to ambulate >400', demonstrating an improved gait with a more efficient use of his AD LTG Duration 6/27/24 One Impairment Pt does not have an appropriate home exercise program Short Term Goal (STG) Pt to be independent and compliant with an appropriate HEP STG Duration 03/02/24 Assessment Summary Assessment Good effort today, pt demonstrated good balance when hitting balls with racquet, but showed minimal weight shift to reach outside NATE. Continue to work on LE strengthening and balance challenges. Physical Therapy Plan Frequency and Duration Frequency of Treatment 2x/Week Plan of Care Start Date 01/31/24 Plan of Care End Date 04/30/24 Therapeutic Interventions Therapeutic Interventions Balance Training,Gait Training ,Home Exercise Program,Manual Therapy,Neuromuscular Re- education,Patient/Caregiver Education,Self-Care/Home Management,Soft Tissue Mobilization,Therapeutic Activities,Therapeutic Exercises,Vestibular Rehabilitation,Wheelchair Management Next Visit Focus/Plan Next Note Type Treatment Note Next Visit Plan CHeck with pre tx how pt blood sugars are and if anything we need to know for PT. POC : Assess tolerance ther ex throughout tx: resistance shuttle recovery on RLE and uneven surface activities without UE support. POC: Gait training, strengthening, activity tolerance Possibly gait training pre and post supine to and from sit.
--- NOTE | 2024-04-06 11:39 | PT.OTN ---
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 (04/06/24) Aphasia following unspecified cerebrovascular disease (04/06/24) Unsteadiness on feet (04/06/24) Other abnormalities of gait and mobility (04/06/24) Repeated falls (04/06/24) Weakness (04/06/24) Personal history of transient ischemic attack (TIA), and cerebral infarction without residual deficits (04/06/24) Physical Therapy Treatment Note PT-OP-A Visit Information Start: 01/31/24 14:55 Freq: Status: Active Protocol: Document 04/06/24 10:34 AB (Rec: 04/06/24 11:38 AB [id number]) Out-Patient Physical Therapy Visit Information Visit Information Visit Type Treatment Note Visit Start Time 10:36 Visit Stop Time 11:19 Visit Number 16 Number of ENGINEERING MECHANIC Visits 1 Evaluation Information Evaluation Date 01/31/24 PT-OP-B Current Condition Start: 01/31/24 14:55 Freq: Status: Active Protocol: Document 01/31/24 13:45 DCW (Rec: 01/31/24 17:08 DCW [id number]) Current Condition History of Current Condition Onset Date 2013 Current Complaints CVA, decrease in balance and activity tolerance History of Current Condition Pt is a 68 year old male who is 10 years s/p CVA which resulted in fairly severe right-sided hemiplegia. Pt has been seen at this facility multiple times off and on since his initial CVA to work on balance, gait, strength, activity toelrance, and functional mobility. Pt is largely non-verbal since his CVA. His attends today's evaluation reporting he has experienced a decline in function since he was last treated in PT (was last discharged 11/01/22). reports he was really struggling a few months ago, limited mobility and very limited energy, but they have recently had some changes to the treatment of his diabetes, which has helped. admits he still does not want to do a whole lot outside, and just seems to have a more difficult time moving around, appears to have greatly decreased confidence. Recently exhibiting slower gait. Also bring up possibility of getting w/c for longer outdoor activities, wondering about letter of medical necessity. PT-OP-C Subjective Start: 01/31/24 14:55 Freq: Status: Active Protocol: Document 04/06/24 10:34 AB (Rec: 04/06/24 11:38 AB [id number]) OP-PT Subjective Patient Comments Patient Comments Patient shrugs shoulders when questioned about blood sugars and nods no when asked if is here today. Patient reports he ate breakfast, BP 105/70 HR 92 BPM post sit to stand and side stepping. PT-OP-D Balance Start: 01/31/24 14:55 Freq: Status: Active Protocol: Document 01/31/24 13:45 DCW (Rec: 01/31/24 15:17 DCW [id number]) OP-PT Balance Assessment Standing Balance Static Standing Balance Ability Fair Dynamic Standing Balance Ability Fair Balance Tests Functional Reach Functional Reach Test 6 inches Functional Reach Impairment Rating 40 to <60% Impaired (Score 5-6 ) Romberg Romberg 30+ eyes open, 18 eyes closed Estrella Fall Scale Copyright Permission PT-OP-E Functional Tests Start: 01/31/24 14:55 Freq: Status: Active Protocol: Document 01/31/24 13:45 DCW (Rec: 01/31/24 15:17 DCW [id number]) Functional Tests 6 Minute Walk Test Distance 262' Device Used LBQC Comments 0.73 ft/sec 30 Second Sit to Stand Test Score x6 repetitions Comments UE use, uncontrolled descent Timed Up and Go (TUG) Score 44.32 Comments /c LBQC TUG Impairment Rating 100% Impaired (Score 20) PT-OP-G Mobility & Gait Start: 01/31/24 14:55 Freq: Status: Active Protocol: Document 01/31/24 13:45 DCW (Rec: 01/31/24 16:50 DCW [id number]) OP Gait Assessment Gait Gait Assistance Required: Standby Assistance Distance (Feet) 262 Assistive Devices Assistive Device Gait Belt,Large Based Quad Cane Gait Deviations General Gait Pattern Antalgic,Ataxic,Decreased Stride Length,Decreased Feet Clearance,Flexed Trunk,Lateral Trunk Lean,Step-to Gait Factors Limiting Gait Function Factors Limiting Gait Function Decreased Activity Tolerance, Decreased Strength,Difficulty Following Directions, Incoordination,Poor Balance, Poor Safety Awareness Stair Climbing Evaluation Evaluation Level of Assist On Stairs Standby Assistance Devices Stair Climbing Assistive Devices Left Railing,Right Railing Technique/Endurance Stair Climbing Direction Ascend and Descend Stair Climbing Technique Step to Step PT-OP-M Strength Start: 01/31/24 14:55 Freq: Status: Active Protocol: Document 01/31/24 13:45 DCW (Rec: 01/31/24 16:50 DCW [id number]) Hip Strength Hip Manual Muscle Testing Right Flexion (L2) 2+ Poor+ Abduction 2- Poor- Adduction 2+ Poor+ External Rotation 0 Zero Internal Rotation 0 Zero Left Flexion (L2) 4- Good- Abduction 4- Good- Adduction 4- Good- External Rotation 4+ Good+ Internal Rotation 4+ Good+ Knee Strength Knee Manual Muscle Testing Right Flexion (S2) 1 Trace Extension (L3) 3- Fair- Left Flexion (S2) 5 Normal Extension (L3) 5 Normal PT-OP-Q Treatments Start: 01/31/24 14:55 Freq: Status: Active Protocol: Document 04/06/24 10:34 AB (Rec: 04/06/24 11:38 AB [id number]) Gym Equipment Shuttle Balance red clips Comments Wide NATE, Staggered, also weight shifting facing bar with CGA throughout all, VC to face fwd/look out window vs eyes on feet. Therapeutic Exercises Sitting Exercises seated hip abduction Side right Equipment Used manual resistance Reps/Minutes X10 with brief hold the one 15 second hold Hamstring Curls Sitting Exercise Name Hamstring Curls Side bilateral Resistance R and left rolling scooter + L2 TB Reps/Minutes x10 R and left Comments Tactile Cues at HS R- improved , guide scooter LAQ Sitting Exercise Name LAQ Side bilateral Resistance AROM RLE, AROM hold LLE Comments post BP check pre shuttle balance Standing Exercises resisted side stepping Standing Exercise Name CGA Side bilateral Resistance without band this session Equipment Used rail LUE support Reps/Minutes 10 feet X 2 left and right Other Exercises stagger stance sit to stand Other Exercise Name with one UE use CGA Reps/Minutes X 5 slight stagger X5 increased stagger Neuro Re-Education Treatment Balance Activities step up taps Details right Surface CGA via GB Equipment 2 inch step Comments hands above bars, unable 4 inch hurdles Details Hurdles Equipment // bars with UE support and CGA Reps/Duration X6 X4 PT-OP-T Assessment and Plan Start: 01/31/24 14:55 Freq: Status: Active Protocol: Document 04/06/24 10:34 AB (Rec: 04/06/24 11:38 AB [id number]) Physical Therapy Assessment Goals Two Impairment Pt ambulates 262 feet during his 6MWT, for a gait speed of 0.73 ft/sec Penitentiary Goal (LTG) Pt to complete a 6MWT using a LBQC to ambulate >400', demonstrating an improved gait with a more efficient use of his AD LTG Duration 04/30/24 One Impairment Pt does not have an appropriate home exercise program Short Term Goal (STG) Pt to be independent and compliant with an appropriate HEP STG Duration 03/02/24 Assessment Summary Assessment in end of session, reports sugar levels on lower side, but not to low to participate in therapy, just over 100 when patient came into session. advised to encourage right knee with same amount of flexion and left during sit to stand. Good return demonstration with exercises, increased quad shaking with weight shift right on shuttle balance. Physical Therapy Plan Frequency and Duration Frequency of Treatment 2x/Week Plan of Care Start Date 01/31/24 Plan of Care End Date 04/30/24 Next Visit Focus/Plan Next Note Type Treatment Note Next Visit Plan CHeck with pre tx how pt blood sugars are and if anything we need to know for PT. POC : Assess tolerance ther ex throughout tx: resistance shuttle recovery on RLE and uneven surface activities without UE support. POC: Gait training, strengthening, activity tolerance Possibly gait training pre and post supine to and from sit.
--- NOTE | 2024-04-09 17:29 | PT.OTN ---
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 (04/09/24) Aphasia following unspecified cerebrovascular disease (04/09/24) Unsteadiness on feet (04/09/24) Other abnormalities of gait and mobility (04/09/24) Repeated falls (04/09/24) Weakness (04/09/24) Personal history of transient ischemic attack (TIA), and cerebral infarction without residual deficits (04/09/24) Physical Therapy Treatment Note PT-OP-A Visit Information Start: 01/31/24 14:55 Freq: Status: Active Protocol: Document 04/09/24 16:45 DCW (Rec: 04/09/24 17:28 DCW [id number]) Out-Patient Physical Therapy Visit Information Visit Information Visit Type Treatment Note Visit Start Time 16:45 Visit Stop Time 17:30 Visit Number 17 Number of CARBIDE GRINDER Visits 0 Evaluation Information Evaluation Date 01/31/24 Precautions Precautions Pt almost entirely non-verbal PT-OP-B Current Condition Start: 01/31/24 14:55 Freq: Status: Active Protocol: Document 01/31/24 13:45 DCW (Rec: 01/31/24 17:08 DCW [id number]) Current Condition History of Current Condition Onset Date 2013 Current Complaints CVA, decrease in balance and activity tolerance History of Current Condition Pt is a 68 year old male who is 10 years s/p CVA which resulted in fairly severe right-sided hemiplegia. Pt has been seen at this facility multiple times off and on since his initial CVA to work on balance, gait, strength, activity toelrance, and functional mobility. Pt is largely non-verbal since his CVA. His attends today's evaluation reporting he has experienced a decline in function since he was last treated in PT (was last discharged 11/01/22). reports he was really struggling a few months ago, limited mobility and very limited energy, but they have recently had some changes to the treatment of his diabetes, which has helped. admits he still does not want to do a whole lot outside, and just seems to have a more difficult time moving around, appears to have greatly decreased confidence. Recently exhibiting slower gait. Also bring up possibility of getting w/c for longer outdoor activities, wondering about letter of medical necessity. PT-OP-C Subjective Start: 01/31/24 14:55 Freq: Status: Active Protocol: Document 04/09/24 16:45 DCW (Rec: 04/09/24 17:29 DCW [id number]) OP-PT Subjective Patient Comments Patient Comments Pt inddicates no recent falls, doing well today. PT-OP-D Balance Start: 01/31/24 14:55 Freq: Status: Active Protocol: Document 01/31/24 13:45 DCW (Rec: 01/31/24 15:17 DCW [id number]) OP-PT Balance Assessment Standing Balance Static Standing Balance Ability Fair Dynamic Standing Balance Ability Fair Balance Tests Functional Reach Functional Reach Test 6 inches Functional Reach Impairment Rating 40 to <60% Impaired (Score 5-6 ) Romberg Romberg 30+ eyes open, 18 eyes closed Estrella Fall Scale Copyright Permission PT-OP-E Functional Tests Start: 01/31/24 14:55 Freq: Status: Active Protocol: Document 01/31/24 13:45 DCW (Rec: 01/31/24 15:17 DCW [id number]) Functional Tests 6 Minute Walk Test Distance 262' Device Used LBQC Comments 0.73 ft/sec 30 Second Sit to Stand Test Score x6 repetitions Comments UE use, uncontrolled descent Timed Up and Go (TUG) Score 44.32 Comments /c LBQC TUG Impairment Rating 100% Impaired (Score 20) PT-OP-G Mobility & Gait Start: 01/31/24 14:55 Freq: Status: Active Protocol: Document 01/31/24 13:45 DCW (Rec: 01/31/24 16:50 DCW [id number]) OP Gait Assessment Gait Gait Assistance Required: Standby Assistance Distance (Feet) 262 Assistive Devices Assistive Device Gait Belt,Large Based Quad Cane Gait Deviations General Gait Pattern Antalgic,Ataxic,Decreased Stride Length,Decreased Feet Clearance,Flexed Trunk,Lateral Trunk Lean,Step-to Gait Factors Limiting Gait Function Factors Limiting Gait Function Decreased Activity Tolerance, Decreased Strength,Difficulty Following Directions, Incoordination,Poor Balance, Poor Safety Awareness Stair Climbing Evaluation Evaluation Level of Assist On Stairs Standby Assistance Devices Stair Climbing Assistive Devices Left Railing,Right Railing Technique/Endurance Stair Climbing Direction Ascend and Descend Stair Climbing Technique Step to Step PT-OP-M Strength Start: 01/31/24 14:55 Freq: Status: Active Protocol: Document 01/31/24 13:45 DCW (Rec: 01/31/24 16:50 DCW [id number]) Hip Strength Hip Manual Muscle Testing Right Flexion (L2) 2+ Poor+ Abduction 2- Poor- Adduction 2+ Poor+ External Rotation 0 Zero Internal Rotation 0 Zero Left Flexion (L2) 4- Good- Abduction 4- Good- Adduction 4- Good- External Rotation 4+ Good+ Internal Rotation 4+ Good+ Knee Strength Knee Manual Muscle Testing Right Flexion (S2) 1 Trace Extension (L3) 3- Fair- Left Flexion (S2) 5 Normal Extension (L3) 5 Normal PT-OP-Q Treatments Start: 01/31/24 14:55 Freq: Status: Active Protocol: Document 04/09/24 16:45 DCW (Rec: 04/09/24 17:28 DCW [id number]) Cardio Equipment Recumbent Elliptical (Biodex) Duration (Minutes) 5 Resistance 5 Seat Position 10 Other left UE/ ralph LE's, occ tactile cue LLE abd midline neutral Gym Equipment Shuttle Balance red clips Comments Wide NATE, Staggered Neuro Re-Education Treatment Balance Activities hurdles Details Hurdles Equipment // bars with UE support and CGA Reps/Duration X6 X4 Uneven Gait Comments Ambulating over blue pads with obstacles underneath foam Details Badminton Surface AirEx Comments NBOS while hitting balls with Badminton racquet PT-OP-T Assessment and Plan Start: 01/31/24 14:55 Freq: Status: Active Protocol: Document 04/09/24 16:45 DCW (Rec: 04/09/24 17:28 DCW [id number]) Physical Therapy Assessment Impairments Impairments Activity Tolerance,Balance, Coordination,Functional Activities,Functional Mobility ,Gait,ROM,Soft Tissue Mobility ,Strength,Tone,Transfers Goals Two Impairment Pt ambulates 262 feet during his 6MWT, for a gait speed of 0.73 ft/sec Senior Living Goal (LTG) Pt to complete a 6MWT using a LBQC to ambulate >400', demonstrating an improved gait with a more efficient use of his AD LTG Duration 04/30/24 One Impairment Pt does not have an appropriate home exercise program Short Term Goal (STG) Pt to be independent and compliant with an appropriate HEP STG Duration 03/02/24 Assessment Summary Assessment Pt showing good stabilization on AirEx while hitting balls with Badminton racquet, as well as ambulating over obstacles. Skipped leg press today secondary to pt indicating some knee pain. Physical Therapy Plan Frequency and Duration Frequency of Treatment 2x/Week Plan of Care Start Date 01/31/24 Plan of Care End Date 04/30/24 Therapeutic Interventions Therapeutic Interventions Balance Training,Gait Training ,Home Exercise Program,Manual Therapy,Neuromuscular Re- education,Patient/Caregiver Education,Self-Care/Home Management,Soft Tissue Mobilization,Therapeutic Activities,Therapeutic Exercises,Vestibular Rehabilitation,Wheelchair Management Next Visit Focus/Plan Next Note Type Treatment Note Next Visit Plan CHeck with pre tx how pt blood sugars are and if anything we need to know for PT. POC : Assess tolerance ther ex throughout tx: resistance shuttle recovery on RLE and uneven surface activities without UE support. POC: Gait training, strengthening, activity tolerance Possibly gait training pre and post supine to and from sit.
--- NOTE | 2024-04-13 15:04 | PT.OTN ---
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 (04/13/24) Aphasia following unspecified cerebrovascular disease (04/13/24) Unsteadiness on feet (04/13/24) Other abnormalities of gait and mobility (04/13/24) Repeated falls (04/13/24) Weakness (04/13/24) Personal history of transient ischemic attack (TIA), and cerebral infarction without residual deficits (04/13/24) Physical Therapy Treatment Note PT-OP-A Visit Information Start: 01/31/24 14:55 Freq: Status: Active Protocol: Document 04/13/24 09:39 AB (Rec: 04/13/24 15:03 AB [id number]) Out-Patient Physical Therapy Visit Information Visit Information Visit Type Treatment Note Visit Note 06/13 for PN Visit Start Time 10:34 Visit Stop Time 11:16 Visit Number 18 Number of MEDICAL TRANSCRIPTION SUPERVISOR Visits 1 Evaluation Information Evaluation Date 01/31/24 Precautions Precautions Pt almost entirely non-verbal PT-OP-B Current Condition Start: 01/31/24 14:55 Freq: Status: Active Protocol: Document 01/31/24 13:45 DCW (Rec: 01/31/24 17:08 DCW [id number]) Current Condition History of Current Condition Onset Date 2013 Current Complaints CVA, decrease in balance and activity tolerance History of Current Condition Pt is a 68 year old male who is 10 years s/p CVA which resulted in fairly severe right-sided hemiplegia. Pt has been seen at this facility multiple times off and on since his initial CVA to work on balance, gait, strength, activity toelrance, and functional mobility. Pt is largely non-verbal since his CVA. His attends today's evaluation reporting he has experienced a decline in function since he was last treated in PT (was last discharged 11/01/22). reports he was really struggling a few months ago, limited mobility and very limited energy, but they have recently had some changes to the treatment of his diabetes, which has helped. admits he still does not want to do a whole lot outside, and just seems to have a more difficult time moving around, appears to have greatly decreased confidence. Recently exhibiting slower gait. Also bring up possibility of getting w/c for longer outdoor activities, wondering about letter of medical necessity. PT-OP-C Subjective Start: 01/31/24 14:55 Freq: Status: Active Protocol: Document 04/13/24 09:39 AB (Rec: 04/13/24 15:03 AB [id number]) OP-PT Subjective Patient Comments Patient Comments sit to stand with right LE minimally extended ( with UE use), less knee extension than start of previous session with this therapist. Patient nods no when questioned regarding falls and pain start of session. Patient Questionnaires ABC- Activity Specific Balance Confidence Scale ABC Score 21.25% PT-OP-D Balance Start: 01/31/24 14:55 Freq: Status: Active Protocol: Document 01/31/24 13:45 DCW (Rec: 01/31/24 15:17 DCW [id number]) OP-PT Balance Assessment Standing Balance Static Standing Balance Ability Fair Dynamic Standing Balance Ability Fair Balance Tests Functional Reach Functional Reach Test 6 inches Functional Reach Impairment Rating 40 to <60% Impaired (Score 5-6 ) Romberg Romberg 30+ eyes open, 18 eyes closed Estrella Fall Scale Copyright Permission PT-OP-E Functional Tests Start: 01/31/24 14:55 Freq: Status: Active Protocol: Document 01/31/24 13:45 DCW (Rec: 01/31/24 15:17 DCW [id number]) Functional Tests 6 Minute Walk Test Distance 262' Device Used LBQC Comments 0.73 ft/sec 30 Second Sit to Stand Test Score x6 repetitions Comments UE use, uncontrolled descent Timed Up and Go (TUG) Score 44.32 Comments /c LBQC TUG Impairment Rating 100% Impaired (Score 20) PT-OP-G Mobility & Gait Start: 01/31/24 14:55 Freq: Status: Active Protocol: Document 01/31/24 13:45 DCW (Rec: 01/31/24 16:50 DCW [id number]) OP Gait Assessment Gait Gait Assistance Required: Standby Assistance Distance (Feet) 262 Assistive Devices Assistive Device Gait Belt,Large Based Quad Cane Gait Deviations General Gait Pattern Antalgic,Ataxic,Decreased Stride Length,Decreased Feet Clearance,Flexed Trunk,Lateral Trunk Lean,Step-to Gait Factors Limiting Gait Function Factors Limiting Gait Function Decreased Activity Tolerance, Decreased Strength,Difficulty Following Directions, Incoordination,Poor Balance, Poor Safety Awareness Stair Climbing Evaluation Evaluation Level of Assist On Stairs Standby Assistance Devices Stair Climbing Assistive Devices Left Railing,Right Railing Technique/Endurance Stair Climbing Direction Ascend and Descend Stair Climbing Technique Step to Step PT-OP-M Strength Start: 01/31/24 14:55 Freq: Status: Active Protocol: Document 01/31/24 13:45 DCW (Rec: 01/31/24 16:50 DCW [id number]) Hip Strength Hip Manual Muscle Testing Right Flexion (L2) 2+ Poor+ Abduction 2- Poor- Adduction 2+ Poor+ External Rotation 0 Zero Internal Rotation 0 Zero Left Flexion (L2) 4- Good- Abduction 4- Good- Adduction 4- Good- External Rotation 4+ Good+ Internal Rotation 4+ Good+ Knee Strength Knee Manual Muscle Testing Right Flexion (S2) 1 Trace Extension (L3) 3- Fair- Left Flexion (S2) 5 Normal Extension (L3) 5 Normal PT-OP-Q Treatments Start: 01/31/24 14:55 Freq: Status: Active Protocol: Document 04/13/24 09:39 AB (Rec: 04/13/24 15:03 AB [id number]) Gym Equipment Shuttle Balance red clips Comments Wide NATE, Staggered not ned this session, increased shaking, able to perform head turns and VC for scanning with eyes during WBOS Therapeutic Activity Therapeutic Activity supine to and from sit Name CGA to minimal assist Reps/Minutes to left and right side Comments Verbal, visual, tactile cues and assist. Focus on normal pattern Gait Training Gait Activity large based quad cane Device Used LBQC Level of Assistance CGA Distance/Duration ~18 feet X 2 Treatment Focus posture and increasing weight shift right Comments Patient ed to note pressure under right foot/ sensation of floor against heel to toe and mimic left LE, Verbal cues for posture to scan the floor ahead vs eyes on feet Neuro Re-Education Treatment Balance Activities fwd, retro stepping in //bars Details Retro ambulation Equipment // bars Reps/Duration 10 ft length each direction X 3 Comments CGA hands above bars Tandem Details Tandem Stance Comments set up with hands on bars then hands above bars CGA throughout hurdles Details Hurdles Equipment // bars with UE support and CGA Reps/Duration X6 X4 PT-OP-T Assessment and Plan Start: 01/31/24 14:55 Freq: Status: Active Protocol: Document 04/13/24 09:39 AB (Rec: 04/13/24 15:03 AB [id number]) Physical Therapy Assessment Goals Two Impairment Pt ambulates 262 feet during his 6MWT, for a gait speed of 0.73 ft/sec Mcfp Goal (LTG) Pt to complete a 6MWT using a LBQC to ambulate >400', demonstrating an improved gait with a more efficient use of his AD LTG Duration 04/30/24 One Impairment Pt does not have an appropriate home exercise program Short Term Goal (STG) Pt to be independent and compliant with an appropriate HEP STG Duration 03/02/24 Assessment Summary Assessment Patient into session with improved positioning of right LE during sit to stand. Physical Therapy Plan Frequency and Duration Frequency of Treatment 2x/Week Plan of Care Start Date 01/31/24 Plan of Care End Date 04/30/24 Next Visit Focus/Plan Next Note Type Treatment Note Next Visit Plan CHeck with pre tx how pt blood sugars are and if anything we need to know for PT. POC : Assess tolerance ther ex throughout tx: resistance shuttle recovery on RLE and uneven surface activities without UE support. POC: Gait training, strengthening, activity tolerance Possibly revisit gait training pre and post supine to and from sit.
--- NOTE | 2024-04-15 16:08 | PT.OTN ---
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 (04/15/24) Aphasia following unspecified cerebrovascular disease (04/15/24) Unsteadiness on feet (04/15/24) Other abnormalities of gait and mobility (04/15/24) Repeated falls (04/15/24) Weakness (04/15/24) Personal history of transient ischemic attack (TIA), and cerebral infarction without residual deficits (04/15/24) Physical Therapy Treatment Note PT-OP-A Visit Information Start: 01/31/24 14:55 Freq: Status: Active Protocol: Document 04/15/24 14:22 AB (Rec: 04/15/24 16:07 AB [id number]) Out-Patient Physical Therapy Visit Information Visit Information Visit Type Treatment Note Visit Note 07/14 for PN Visit Start Time 14:33 Visit Stop Time 15:14 Visit Number 19 Number of BEHAVIOR MANAGEMENT SPECIALIST Visits 2 Evaluation Information Evaluation Date 01/31/24 Precautions Precautions Pt almost entirely non-verbal PT-OP-B Current Condition Start: 01/31/24 14:55 Freq: Status: Active Protocol: Document 01/31/24 13:45 DCW (Rec: 01/31/24 17:08 DCW [id number]) Current Condition History of Current Condition Onset Date 2013 Current Complaints CVA, decrease in balance and activity tolerance History of Current Condition Pt is a 68 year old male who is 10 years s/p CVA which resulted in fairly severe right-sided hemiplegia. Pt has been seen at this facility multiple times off and on since his initial CVA to work on balance, gait, strength, activity toelrance, and functional mobility. Pt is largely non-verbal since his CVA. His attends today's evaluation reporting he has experienced a decline in function since he was last treated in PT (was last discharged 11/01/22). reports he was really struggling a few months ago, limited mobility and very limited energy, but they have recently had some changes to the treatment of his diabetes, which has helped. admits he still does not want to do a whole lot outside, and just seems to have a more difficult time moving around, appears to have greatly decreased confidence. Recently exhibiting slower gait. Also bring up possibility of getting w/c for longer outdoor activities, wondering about letter of medical necessity. PT-OP-C Subjective Start: 01/31/24 14:55 Freq: Status: Active Protocol: Document 04/15/24 14:22 AB (Rec: 04/15/24 16:07 AB [id number]) OP-PT Subjective Patient Comments Patient Comments Patient nods no when questioned regarding pain and questioned if he had any falls since previous session. Patient continues to ambulate with decreased weight shift right using a large based quad cane PT-OP-D Balance Start: 01/31/24 14:55 Freq: Status: Active Protocol: Document 01/31/24 13:45 DCW (Rec: 01/31/24 15:17 DCW [id number]) OP-PT Balance Assessment Standing Balance Static Standing Balance Ability Fair Dynamic Standing Balance Ability Fair Balance Tests Functional Reach Functional Reach Test 6 inches Functional Reach Impairment Rating 40 to <60% Impaired (Score 5-6 ) Romberg Romberg 30+ eyes open, 18 eyes closed Estrella Fall Scale Copyright Permission PT-OP-E Functional Tests Start: 01/31/24 14:55 Freq: Status: Active Protocol: Document 01/31/24 13:45 DCW (Rec: 01/31/24 15:17 DCW [id number]) Functional Tests 6 Minute Walk Test Distance 262' Device Used LBQC Comments 0.73 ft/sec 30 Second Sit to Stand Test Score x6 repetitions Comments UE use, uncontrolled descent Timed Up and Go (TUG) Score 44.32 Comments /c LBQC TUG Impairment Rating 100% Impaired (Score 20) PT-OP-G Mobility & Gait Start: 01/31/24 14:55 Freq: Status: Active Protocol: Document 01/31/24 13:45 DCW (Rec: 01/31/24 16:50 DCW [id number]) OP Gait Assessment Gait Gait Assistance Required: Standby Assistance Distance (Feet) 262 Assistive Devices Assistive Device Gait Belt,Large Based Quad Cane Gait Deviations General Gait Pattern Antalgic,Ataxic,Decreased Stride Length,Decreased Feet Clearance,Flexed Trunk,Lateral Trunk Lean,Step-to Gait Factors Limiting Gait Function Factors Limiting Gait Function Decreased Activity Tolerance, Decreased Strength,Difficulty Following Directions, Incoordination,Poor Balance, Poor Safety Awareness Stair Climbing Evaluation Evaluation Level of Assist On Stairs Standby Assistance Devices Stair Climbing Assistive Devices Left Railing,Right Railing Technique/Endurance Stair Climbing Direction Ascend and Descend Stair Climbing Technique Step to Step PT-OP-M Strength Start: 01/31/24 14:55 Freq: Status: Active Protocol: Document 01/31/24 13:45 DCW (Rec: 01/31/24 16:50 DCW [id number]) Hip Strength Hip Manual Muscle Testing Right Flexion (L2) 2+ Poor+ Abduction 2- Poor- Adduction 2+ Poor+ External Rotation 0 Zero Internal Rotation 0 Zero Left Flexion (L2) 4- Good- Abduction 4- Good- Adduction 4- Good- External Rotation 4+ Good+ Internal Rotation 4+ Good+ Knee Strength Knee Manual Muscle Testing Right Flexion (S2) 1 Trace Extension (L3) 3- Fair- Left Flexion (S2) 5 Normal Extension (L3) 5 Normal PT-OP-Q Treatments Start: 01/31/24 14:55 Freq: Status: Active Protocol: Document 04/15/24 14:22 AB (Rec: 04/15/24 16:07 AB [id number]) Gym Equipment Shuttle Balance red clips Reps/Duration 2 mins Comments Wide NATE, with and without head turns Therapeutic Exercises Sitting Exercises seated hip abduction Side right Equipment Used manual resistance Reps/Minutes one min hold Other Exercises weight shifting Other Exercise Name with and without UE use Side bilateral Equipment Used on floor and on foam pad Reps/Minutes X 10 X 2 each on floor, X10 on foam Comments lateral and AP on floor, lateral on foam scale step ups Other Exercise Name with UE support right LE CGA Reps/Minutes X10 Comments to 135 lb force through right LE intermittently Gait Training Gait Activity large based quad cane Device Used LBQC Level of Assistance supervision Distance/Duration 15 feet,12 feet, 5 feet Treatment Focus posture and increasing weight shift right Comments Patient ed to note pressure under right foot/ sensation of floor against heel to toe and mimic left LE, Verbal cues for posture to scan the floor ahead vs eyes on feet no AD Description forward then back stepping Device Used inside //bars hand above bar fwd, uses bar with back stepping Level of Assistance CG/ Min A Surface floor Distance/Duration 10 ft 1 length each direction Treatment Focus increase RLE WB Comments anterior R knee support as needed Neuro Re-Education Treatment Balance Activities Balloon volley ball Surface floor and blue cushion Comments CGA step up taps Details left and right Surface CGA via GB with UE support Equipment 2 inch step PT-OP-T Assessment and Plan Start: 01/31/24 14:55 Freq: Status: Active Protocol: Document 04/15/24 14:22 AB (Rec: 04/15/24 16:07 AB [id number]) Physical Therapy Assessment Goals Two Impairment Pt ambulates 262 feet during his 6MWT, for a gait speed of 0.73 ft/sec Nursing Home Goal (LTG) Pt to complete a 6MWT using a LBQC to ambulate >400', demonstrating an improved gait with a more efficient use of his AD LTG Duration 04/30/24 One Impairment Pt does not have an appropriate home exercise program Short Term Goal (STG) Pt to be independent and compliant with an appropriate HEP STG Duration 03/02/24 Assessment Summary Assessment Session limited by time due to trip to restroom during session. Physical Therapy Plan Frequency and Duration Frequency of Treatment 2x/Week Plan of Care Start Date 01/31/24 Plan of Care End Date 04/30/24 Next Visit Focus/Plan Next Note Type Progress Note Next Visit Plan CHeck with pre tx how pt blood sugars are and if anything we need to know for PT. POC : Assess tolerance ther ex throughout tx: resistance shuttle recovery on RLE and uneven surface activities without UE support. POC: Gait training, strengthening, activity tolerance Possibly revisit gait training pre and post supine to and from sit.
--- NOTE | 2024-04-20 14:42 | PT.OTN ---
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 (04/20/24) Aphasia following unspecified cerebrovascular disease (04/20/24) Unsteadiness on feet (04/20/24) Other abnormalities of gait and mobility (04/20/24) Repeated falls (04/20/24) Weakness (04/20/24) Personal history of transient ischemic attack (TIA), and cerebral infarction without residual deficits (04/20/24) Physical Therapy Treatment Note PT-OP-A Visit Information Start: 01/31/24 14:55 Freq: Status: Active Protocol: Document 04/20/24 09:29 AB (Rec: 04/20/24 14:40 AB [id number]) Out-Patient Physical Therapy Visit Information Visit Information Visit Type Treatment Note Visit Note Visit [email or web address] Access Code: [email or web address] Visit Start Time 10:35 Visit Stop Time 11:18 Visit Number 20 Number of RESPIRATORY PRACTITIONER Visits 3 Evaluation Information Evaluation Date 01/31/24 Precautions Precautions Pt almost entirely non-verbal PT-OP-B Current Condition Start: 01/31/24 14:55 Freq: Status: Active Protocol: Document 01/31/24 13:45 DCW (Rec: 01/31/24 17:08 DCW [id number]) Current Condition History of Current Condition Onset Date 2013 Current Complaints CVA, decrease in balance and activity tolerance History of Current Condition Pt is a 68 year old male who is 10 years s/p CVA which resulted in fairly severe right-sided hemiplegia. Pt has been seen at this facility multiple times off and on since his initial CVA to work on balance, gait, strength, activity toelrance, and functional mobility. Pt is largely non-verbal since his CVA. His attends today's evaluation reporting he has experienced a decline in function since he was last treated in PT (was last discharged 11/01/22). reports he was really struggling a few months ago, limited mobility and very limited energy, but they have recently had some changes to the treatment of his diabetes, which has helped. admits he still does not want to do a whole lot outside, and just seems to have a more difficult time moving around, appears to have greatly decreased confidence. Recently exhibiting slower gait. Also bring up possibility of getting w/c for longer outdoor activities, wondering about letter of medical necessity. PT-OP-C Subjective Start: 01/31/24 14:55 Freq: Status: Active Protocol: Document 04/20/24 09:29 AB (Rec: 04/20/24 14:40 AB [id number]) OP-PT Subjective Patient Comments Patient Comments Patient nods no when questioned regarding falls and pain. Patient nods no when questioned regarding HEP/ exercising at home PT-OP-D Balance Start: 01/31/24 14:55 Freq: Status: Active Protocol: Document 01/31/24 13:45 DCW (Rec: 01/31/24 15:17 DCW [id number]) OP-PT Balance Assessment Standing Balance Static Standing Balance Ability Fair Dynamic Standing Balance Ability Fair Balance Tests Functional Reach Functional Reach Test 6 inches Functional Reach Impairment Rating 40 to <60% Impaired (Score 5-6 ) Romberg Romberg 30+ eyes open, 18 eyes closed Estrella Fall Scale Copyright Permission PT-OP-E Functional Tests Start: 01/31/24 14:55 Freq: Status: Active Protocol: Document 04/20/24 09:29 AB (Rec: 04/20/24 14:42 AB [id number]) Functional Tests 6 Minute Walk Test Distance 254 Device Used large based quad cane Comments scuffed foot X 1 able to recover without physical assist PT-OP-G Mobility & Gait Start: 01/31/24 14:55 Freq: Status: Active Protocol: Document 01/31/24 13:45 DCW (Rec: 01/31/24 16:50 DCW [id number]) OP Gait Assessment Gait Gait Assistance Required: Standby Assistance Distance (Feet) 262 Assistive Devices Assistive Device Gait Belt,Large Based Quad Cane Gait Deviations General Gait Pattern Antalgic,Ataxic,Decreased Stride Length,Decreased Feet Clearance,Flexed Trunk,Lateral Trunk Lean,Step-to Gait Factors Limiting Gait Function Factors Limiting Gait Function Decreased Activity Tolerance, Decreased Strength,Difficulty Following Directions, Incoordination,Poor Balance, Poor Safety Awareness Stair Climbing Evaluation Evaluation Level of Assist On Stairs Standby Assistance Devices Stair Climbing Assistive Devices Left Railing,Right Railing Technique/Endurance Stair Climbing Direction Ascend and Descend Stair Climbing Technique Step to Step PT-OP-M Strength Start: 01/31/24 14:55 Freq: Status: Active Protocol: Document 01/31/24 13:45 DCW (Rec: 01/31/24 16:50 DCW [id number]) Hip Strength Hip Manual Muscle Testing Right Flexion (L2) 2+ Poor+ Abduction 2- Poor- Adduction 2+ Poor+ External Rotation 0 Zero Internal Rotation 0 Zero Left Flexion (L2) 4- Good- Abduction 4- Good- Adduction 4- Good- External Rotation 4+ Good+ Internal Rotation 4+ Good+ Knee Strength Knee Manual Muscle Testing Right Flexion (S2) 1 Trace Extension (L3) 3- Fair- Left Flexion (S2) 5 Normal Extension (L3) 5 Normal PT-OP-Q Treatments Start: 01/31/24 14:55 Freq: Status: Active Protocol: Document 04/20/24 09:29 AB (Rec: 04/20/24 14:40 AB [id number]) Gym Equipment Shuttle Balance red clips Reps/Duration 3 mins Comments Wide NATE, with and without head turns, minimally stagger stanced left and right fwd/no head turns nor scanning Therapeutic Exercises Supine Exercises LTR Supine Exercise Name LTR Side bilateral Reps/Minutes 2 min Sitting Exercises short sit Side bilateral Reps/Minutes X10 Comments unable to weight bear to right , unable to fully rest on forearm left Standing Exercises sit to stand Side bilateral Reps/Minutes X6 Comments Verbal cues to increase trunk flexion at hips Therapeutic Activity Therapeutic Activity supine to and from sit Name CGA to minimal assist Reps/Minutes to left and right side Comments Verbal, visual, tactile cues and assist. Focus on normal pattern Gait Training Gait Activity large based quad cane Device Used LBQC Level of Assistance supervision to CGA Distance/Duration 14 feet and 18 feet Treatment Focus posture and increasing weight shift right Comments Patient ed to note pressure under right foot/ sensation of floor against heel to toe and mimic left LE, Verbal cues for posture to scan the floor ahead vs eyes on feet PT-OP-T Assessment and Plan Start: 01/31/24 14:55 Freq: Status: Active Protocol: Document 04/20/24 09:29 AB (Rec: 04/20/24 14:40 AB [id number]) Physical Therapy Assessment Goals Two Impairment Pt ambulates 262 feet during his 6MWT, for a gait speed of 0.73 ft/sec Extract Wringer Goal (LTG) Pt to complete a 6MWT using a LBQC to ambulate >400', demonstrating an improved gait with a more efficient use of his AD 04/20/2024 254 feet with large based quad cane with 6 min walk test scuffing feet with hip strategy to self correct X 1. LTG Duration 04/30/24 One Impairment Pt does not have an appropriate home exercise program Short Term Goal (STG) Pt to be independent and compliant with an appropriate HEP STG Duration 03/02/24 Assessment Summary Assessment Sukh decreased to 254 feet using large based quad cane for 6 minute walk test, scuffing foot X1, but able to recover balance without physical assist. Patient nodded no to performing ex/HEP at home. Patient given HEP with LTR, sit to stand, and short sit to be performed with present and advised may come in for training. Physical Therapy Plan Frequency and Duration Frequency of Treatment 2x/Week Plan of Care Start Date 01/31/24 Plan of Care End Date 04/30/24 Next Visit Focus/Plan Next Note Type Treatment Note Next Visit Plan CHeck with pre tx how pt blood sugars are and if anything we need to know for PT. POC : Assess tolerance ther ex throughout tx: resistance shuttle recovery on RLE and uneven surface activities without UE support. POC: Gait training, strengthening, activity tolerance Possibly revisit gait training pre and post supine to and from sit.
--- NOTE | 2024-04-20 16:21 | PT.OPPN ---
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 (04/20/24) Aphasia following unspecified cerebrovascular disease (04/20/24) Unsteadiness on feet (04/20/24) Other abnormalities of gait and mobility (04/20/24) Repeated falls (04/20/24) Weakness (04/20/24) Personal history of transient ischemic attack (TIA), and cerebral infarction without residual deficits (04/20/24) Physical Therapy Progress Note PT-OP-A Visit Information Start: 01/31/24 14:55 Freq: Status: Active Protocol: Document 04/20/24 09:29 AB (Rec: 04/20/24 14:40 AB [id number]) Out-Patient Physical Therapy Visit Information Visit Information Visit Type Treatment Note Visit Note Visit [email or web address] Access Code: [email or web address] Visit Start Time 10:35 Visit Stop Time 11:18 Visit Number 20 Number of FOAM RUBBER MIXER Visits 3 Evaluation Information Evaluation Date 01/31/24 Precautions Precautions Pt almost entirely non-verbal PT-OP-B Current Condition Start: 01/31/24 14:55 Freq: Status: Active Protocol: Document 01/31/24 13:45 DCW (Rec: 01/31/24 17:08 DCW [id number]) Current Condition History of Current Condition Onset Date 2013 Current Complaints CVA, decrease in balance and activity tolerance History of Current Condition Pt is a 68 year old male who is 10 years s/p CVA which resulted in fairly severe right-sided hemiplegia. Pt has been seen at this facility multiple times off and on since his initial CVA to work on balance, gait, strength, activity toelrance, and functional mobility. Pt is largely non-verbal since his CVA. His attends today's evaluation reporting he has experienced a decline in function since he was last treated in PT (was last discharged 11/01/22). reports he was really struggling a few months ago, limited mobility and very limited energy, but they have recently had some changes to the treatment of his diabetes, which has helped. admits he still does not want to do a whole lot outside, and just seems to have a more difficult time moving around, appears to have greatly decreased confidence. Recently exhibiting slower gait. Also bring up possibility of getting w/c for longer outdoor activities, wondering about letter of medical necessity. PT-OP-C Subjective Start: 01/31/24 14:55 Freq: Status: Active Protocol: Document 04/20/24 09:29 AB (Rec: 04/20/24 14:40 AB [id number]) OP-PT Subjective Patient Comments Patient Comments Patient nods no when questioned regarding falls and pain. Patient nods no when questioned regarding HEP/ exercising at home PT-OP-D Balance Start: 01/31/24 14:55 Freq: Status: Active Protocol: Document 01/31/24 13:45 DCW (Rec: 01/31/24 15:17 DCW [id number]) OP-PT Balance Assessment Standing Balance Static Standing Balance Ability Fair Dynamic Standing Balance Ability Fair Balance Tests Functional Reach Functional Reach Test 6 inches Functional Reach Impairment Rating 40 to <60% Impaired (Score 5-6 ) Romberg Romberg 30+ eyes open, 18 eyes closed Estrella Fall Scale Copyright Permission Delores PHELPS, Delores RM, Danna SJ. Development of a scale to identify the fall- prone patient. Can J Aging 1989;8;366-7. Jem Estrella (2009). Preventing patient falls. (2nd ed). [place]: [place]. PT-OP-E Functional Tests Start: 01/31/24 14:55 Freq: Status: Active Protocol: Document 04/20/24 09:29 AB (Rec: 04/20/24 14:42 AB [id number]) Functional Tests 6 Minute Walk Test Distance 254 Device Used large based quad cane Comments scuffed foot X 1 able to recover without physical assist PT-OP-G Mobility & Gait Start: 01/31/24 14:55 Freq: Status: Active Protocol: Document 01/31/24 13:45 DCW (Rec: 01/31/24 16:50 DCW [id number]) OP Gait Assessment Gait Gait Assistance Required: Standby Assistance Distance (Feet) 262 Assistive Devices Assistive Device Gait Belt,Large Based Quad Cane Gait Deviations General Gait Pattern Antalgic,Ataxic,Decreased Stride Length,Decreased Feet Clearance,Flexed Trunk,Lateral Trunk Lean,Step-to Gait Factors Limiting Gait Function Factors Limiting Gait Function Decreased Activity Tolerance, Decreased Strength,Difficulty Following Directions, Incoordination,Poor Balance, Poor Safety Awareness Stair Climbing Evaluation Evaluation Level of Assist On Stairs Standby Assistance Devices Stair Climbing Assistive Devices Left Railing,Right Railing Technique/Endurance Stair Climbing Direction Ascend and Descend Stair Climbing Technique Step to Step PT-OP-M Strength Start: 01/31/24 14:55 Freq: Status: Active Protocol: Document 01/31/24 13:45 DCW (Rec: 01/31/24 16:50 DCW [id number]) Hip Strength Hip Manual Muscle Testing Right Flexion (L2) 2+ Poor+ Abduction 2- Poor- Adduction 2+ Poor+ External Rotation 0 Zero Internal Rotation 0 Zero Left Flexion (L2) 4- Good- Abduction 4- Good- Adduction 4- Good- External Rotation 4+ Good+ Internal Rotation 4+ Good+ Knee Strength Knee Manual Muscle Testing Right Flexion (S2) 1 Trace Extension (L3) 3- Fair- Left Flexion (S2) 5 Normal Extension (L3) 5 Normal PT-OP-T Assessment and Plan Start: 01/31/24 14:55 Freq: Status: Active Protocol: Document 04/20/24 16:19 DCW (Rec: 04/20/24 16:21 DCW [id number]) Physical Therapy Assessment Impairments Impairments Activity Tolerance,Balance, Coordination,Functional Activities,Functional Mobility ,Gait,ROM,Soft Tissue Mobility ,Strength,Tone,Transfers Assessment Summary Assessment Pt showing slight decline with 6MWT, need to continue to work on improving stride length and sequencing of LBQC. New POC next visit. Physical Therapy Plan Frequency and Duration Frequency of Treatment 2x/Week Plan of Care Start Date 01/31/24 Plan of Care End Date 04/30/24 Therapeutic Interventions Therapeutic Interventions Balance Training,Gait Training ,Home Exercise Program,Manual Therapy,Neuromuscular Re- education,Patient/Caregiver Education,Self-Care/Home Management,Soft Tissue Mobilization,Therapeutic Activities,Therapeutic Exercises,Vestibular Rehabilitation,Wheelchair Management Next Visit Focus/Plan Next Note Type Treatment Note Next Visit Plan CHeck with pre tx how pt blood sugars are and if anything we need to know for PT. POC : Assess tolerance ther ex throughout tx: resistance shuttle recovery on RLE and uneven surface activities without UE support. POC: Gait training, strengthening, activity tolerance Possibly gait training pre and post supine to and from sit.
--- NOTE | 2024-04-22 12:47 | PT.OTN ---
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 (04/22/24) Aphasia following unspecified cerebrovascular disease (04/22/24) Unsteadiness on feet (04/22/24) Other abnormalities of gait and mobility (04/22/24) Repeated falls (04/22/24) Weakness (04/22/24) Personal history of transient ischemic attack (TIA), and cerebral infarction without residual deficits (04/22/24) Physical Therapy Treatment Note PT-OP-A Visit Information Start: 01/31/24 14:55 Freq: Status: Active Protocol: Document 04/22/24 12:00 [facility] (Rec: 04/22/24 12:47 [facility] [id number]) Out-Patient Physical Therapy Visit Information Visit Information Visit Type Progress Note Visit Start Time 12:00 Visit Stop Time 12:45 Visit Number 21 Number of OYSTER CULTIVATOR Visits 0 Evaluation Information Evaluation Date 01/31/24 Precautions Precautions Pt almost entirely non-verbal PT-OP-B Current Condition Start: 01/31/24 14:55 Freq: Status: Active Protocol: Document 01/31/24 13:45 [facility] (Rec: 01/31/24 17:08 [facility] [id number]) Current Condition History of Current Condition Onset Date 2013 Current Complaints CVA, decrease in balance and activity tolerance History of Current Condition Pt is a 68 year old male who is 10 years s/p CVA which resulted in fairly severe right-sided hemiplegia. Pt has been seen at this facility multiple times off and on since his initial CVA to work on balance, gait, strength, activity toelrance, and functional mobility. Pt is largely non-verbal since his CVA. His attends today's evaluation reporting he has experienced a decline in function since he was last treated in PT (was last discharged 11/01/22). reports he was really struggling a few months ago, limited mobility and very limited energy, but they have recently had some changes to the treatment of his diabetes, which has helped. admits he still does not want to do a whole lot outside, and just seems to have a more difficult time moving around, appears to have greatly decreased confidence. Recently exhibiting slower gait. Also bring up possibility of getting w/c for longer outdoor activities, wondering about letter of medical necessity. PT-OP-C Subjective Start: 01/31/24 14:55 Freq: Status: Active Protocol: Document 04/22/24 12:00 [facility] (Rec: 04/22/24 12:47 [facility] [id number]) OP-PT Subjective Patient Comments Patient Comments Pt indicates he is doing well, but tired today. PT-OP-D Balance Start: 01/31/24 14:55 Freq: Status: Active Protocol: Document 04/22/24 12:00 [facility] (Rec: 04/22/24 12:18 [facility] [id number]) Balance Tests Functional Reach Functional Reach Test 8 inches Functional Reach Impairment Rating 20 to <40% Impaired (Score 7-8 ) Romberg Romberg 30+ eyes open, 30+ eyes closed PT-OP-E Functional Tests Start: 01/31/24 14:55 Freq: Status: Active Protocol: Document 04/22/24 12:00 [facility] (Rec: 04/22/24 12:18 [facility] [id number]) Functional Tests 30 Second Sit to Stand Test Score x10 repetitions Comments UE use, controlled descent Timed Up and Go (TUG) Score 40.49 Comments /c LBQC TUG Impairment Rating 100% Impaired (Score 20) PT-OP-G Mobility & Gait Start: 01/31/24 14:55 Freq: Status: Active Protocol: Document 04/22/24 12:00 [facility] (Rec: 04/22/24 12:08 [facility] [id number]) OP Gait Assessment Assistive Devices Assistive Device Gait Belt,Large Based Quad Cane Gait Deviations General Gait Pattern Antalgic,Ataxic,Decreased Stride Length,Decreased Feet Clearance,Flexed Trunk,Lateral Trunk Lean,Step-to Gait Factors Limiting Gait Function Factors Limiting Gait Function Decreased Activity Tolerance, Decreased Strength,Difficulty Following Directions, Incoordination,Poor Balance, Poor Safety Awareness Stair Climbing Evaluation Evaluation Level of Assist On Stairs Standby Assistance Devices Stair Climbing Assistive Devices Left Railing,Right Railing Technique/Endurance Stair Climbing Direction Ascend and Descend Stair Climbing Technique Step to Step PT-OP-M Strength Start: 01/31/24 14:55 Freq: Status: Active Protocol: Document 04/22/24 12:00 [facility] (Rec: 04/22/24 12:18 [facility] [id number]) Hip Strength Hip Manual Muscle Testing Right Flexion (L2) 2+ Poor+ Abduction 2- Poor- Adduction 2+ Poor+ External Rotation 0 Zero Internal Rotation 0 Zero Left Flexion (L2) 4- Good- Abduction 4- Good- Adduction 4- Good- External Rotation 4+ Good+ Internal Rotation 4+ Good+ Knee Strength Knee Manual Muscle Testing Right Flexion (S2) 2- Poor- Extension (L3) 3 Fair Left Flexion (S2) 5 Normal Extension (L3) 5 Normal PT-OP-Q Treatments Start: 01/31/24 14:55 Freq: Status: Active Protocol: Document 04/22/24 12:00 [facility] (Rec: 04/22/24 12:47 [facility] [id number]) Gym Equipment Shuttle Balance red clips Comments Staggered Stance Gait Training Gait Activity Gait Surface L LE stance on 2 block Comments Seperate gait function, focusing on right leg swing phase/advancing with left UE movement large based quad cane Device Used LBQC Level of Assistance supervision Treatment Focus Attempts to advance right foot and LBQC at the same time Neuro Re-Education Treatment Balance Activities fwd, retro stepping in //bars Details Retro ambulation, side- stepping Equipment // bars Reps/Duration 10 ft length each direction X 3 Comments CGA hands above bars PT-OP-T Assessment and Plan Start: 01/31/24 14:55 Freq: Status: Active Protocol: Document 04/22/24 12:00 [facility] (Rec: 04/22/24 12:47 [facility] [id number]) Physical Therapy Assessment Goals Two Impairment Pt ambulates 262 feet during his 6MWT, for a gait speed of 0.73 ft/sec Broadcasting Equipment Mechanic Goal (LTG) Pt to complete a 6MWT using a LBQC to ambulate >400', demonstrating an improved gait with a more efficient use of his AD 04/20/2024 254 feet with large based quad cane with 6 min walk test scuffing feet with hip strategy to self correct X 1. LTG Duration 07/21/24 One Impairment Pt does not have an appropriate home exercise program Short Term Goal (STG) Pt to be independent and compliant with an appropriate HEP 04/22/24: Poor compliance currently STG Duration 06/20/24 Progress Towards Goals Progress Towards Goals Slow Progress due to Activity Tolerance,Slow Progress due to Medical Issues,Slow Progress due to Noncompliance Assessment Summary Assessment Pt 6MWT has declined slightly since initial evaluation, however 30 second Sit to Stand and TUG are both showing improvement, as well as slight improvement in MMT. Attempting to focus more on sequencing left cane use and right swing phase during gait to improve gait speed. Pt continues to be noncompliant with HEP. Physical Therapy Plan Frequency and Duration Frequency of Treatment 2x/Week Plan of Care Start Date 04/22/24 Plan of Care End Date 07/21/24 Therapeutic Interventions Therapeutic Interventions Balance Training,Gait Training ,Home Exercise Program,Manual Therapy,Neuromuscular Re- education,Patient/Caregiver Education,Self-Care/Home Management,Soft Tissue Mobilization,Therapeutic Activities,Therapeutic Exercises,Vestibular Rehabilitation,Wheelchair Management Next Visit Focus/Plan Next Note Type Treatment Note Next Visit Plan CHeck with pre tx how pt blood sugars are and if anything we need to know for PT. POC : Assess tolerance ther ex throughout tx: resistance shuttle recovery on RLE and uneven surface activities without UE support. POC: Gait training, strengthening, activity tolerance Possibly gait training pre and post supine to and from sit.
--- NOTE | 2024-04-22 12:48 | PT.OPPOC ---
Physical, Occupational & Speech Therapy At [facility] 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 (04/22/24) Aphasia following unspecified cerebrovascular disease (04/22/24) Unsteadiness on feet (04/22/24) Other abnormalities of gait and mobility (04/22/24) Repeated falls (04/22/24) Weakness (04/22/24) Personal history of transient ischemic attack (TIA), and cerebral infarction without residual deficits (04/22/24) Visit Care Team Role Provider Type Delfino Epstein MD Attending Provider Physician Family Provider Primary Care Provider Referring Provider Specialty: [facility] Practice Address: [address] [place] [address], [address], [facility] Email: [email or web address] Plan Of Care PT-OP-T Assessment and Plan Start: 01/31/24 14:55 Freq: Status: Active Protocol: Document 04/22/24 12:00 [facility] (Rec: 04/22/24 12:47 [facility] [id number]) Physical Therapy Assessment Goals Two Impairment Pt ambulates 262 feet during his 6MWT, for a gait speed of 0.73 ft/sec Residential Goal (LTG) Pt to complete a 6MWT using a LBQC to ambulate >400', demonstrating an improved gait with a more efficient use of his AD 04/20/2024 254 feet with large based quad cane with 6 min walk test scuffing feet with hip strategy to self correct X 1. LTG Duration 07/21/24 One Impairment Pt does not have an appropriate home exercise program Short Term Goal (STG) Pt to be independent and compliant with an appropriate HEP 04/22/24: Poor compliance currently STG Duration 06/20/24 Progress Towards Goals Progress Towards Goals Slow Progress due to Activity Tolerance,Slow Progress due to Medical Issues,Slow Progress due to Noncompliance Assessment Summary Assessment Pt 6MWT has declined slightly since initial evaluation, however 30 second Sit to Stand and TUG are both showing improvement, as well as slight improvement in MMT. Attempting to focus more on sequencing left cane use and right swing phase during gait to improve gait speed. Pt continues to be noncompliant with HEP. Physical Therapy Plan Frequency and Duration Frequency of Treatment 2x/Week Plan of Care Start Date 04/22/24 Plan of Care End Date 07/21/24 Therapeutic Interventions Therapeutic Interventions Balance Training,Gait Training ,Home Exercise Program,Manual Therapy,Neuromuscular Re- education,Patient/Caregiver Education,Self-Care/Home Management,Soft Tissue Mobilization,Therapeutic Activities,Therapeutic Exercises,Vestibular Rehabilitation,Wheelchair Management Next Visit Focus/Plan Next Note Type Treatment Note Next Visit Plan CHeck with pre tx how pt blood sugars are and if anything we need to know for PT. POC : Assess tolerance ther ex throughout tx: resistance shuttle recovery on RLE and uneven surface activities without UE support. POC: Gait training, strengthening, activity tolerance Possibly gait training pre and post supine to and from sit. Plan of Care Dates Plan of Care Start Date 04/22/24 Plan of Care End Date 07/21/24 Electronically Signed by: Jefferson Ceron, PT 04/22/24 7069 If you are in agreement with this Plan of Care, please return a signed and dated copy. I have reviewed this Plan of Care and certify that the skilled therapy services above are required to meet the patient?s needs. Physician Signature Date Printed Name and Credentials Clinical Instructor Signature Printed Name and Credentials
--- NOTE | 2024-04-29 16:28 | PT.OTN ---
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 (04/29/24) Aphasia following unspecified cerebrovascular disease (04/29/24) Unsteadiness on feet (04/29/24) Other abnormalities of gait and mobility (04/29/24) Repeated falls (04/29/24) Weakness (04/29/24) Personal history of transient ischemic attack (TIA), and cerebral infarction without residual deficits (04/29/24) Physical Therapy Treatment Note PT-OP-A Visit Information Start: 01/31/24 14:55 Freq: Status: Active Protocol: Document 04/29/24 12:59 AB (Rec: 04/29/24 13:48 AB [id number]) Out-Patient Physical Therapy Visit Information Visit Information Visit Type Treatment Note Visit Start Time 13:03 Visit Stop Time 13:45 Visit Number 22 Number of CARPET RENOVATOR Visits 1 Evaluation Information Evaluation Date 01/31/24 Precautions Precautions Pt almost entirely non-verbal PT-OP-B Current Condition Start: 01/31/24 14:55 Freq: Status: Active Protocol: Document 01/31/24 13:45 DCW (Rec: 01/31/24 17:08 DCW [id number]) Current Condition History of Current Condition Onset Date 2013 Current Complaints CVA, decrease in balance and activity tolerance History of Current Condition Pt is a 68 year old male who is 10 years s/p CVA which resulted in fairly severe right-sided hemiplegia. Pt has been seen at this facility multiple times off and on since his initial CVA to work on balance, gait, strength, activity toelrance, and functional mobility. Pt is largely non-verbal since his CVA. His attends today's evaluation reporting he has experienced a decline in function since he was last treated in PT (was last discharged 11/01/22). reports he was really struggling a few months ago, limited mobility and very limited energy, but they have recently had some changes to the treatment of his diabetes, which has helped. admits he still does not want to do a whole lot outside, and just seems to have a more difficult time moving around, appears to have greatly decreased confidence. Recently exhibiting slower gait. Also bring up possibility of getting w/c for longer outdoor activities, wondering about letter of medical necessity. PT-OP-C Subjective Start: 03/29/24 14:55 Freq: Status: Active Protocol: Document 04/29/24 12:59 AB (Rec: 04/29/24 13:48 AB [id number]) OP-PT Subjective Patient Comments Patient Comments Caregiver reports sugar levels have been good. PT-OP-D Balance Start: 01/31/24 14:55 Freq: Status: Active Protocol: Document 04/22/24 12:00 DCW (Rec: 04/22/24 12:18 DCW [id number]) Balance Tests Functional Reach Functional Reach Test 8 inches Functional Reach Impairment Rating 20 to <40% Impaired (Score 7-8 ) Romberg Romberg 30+ eyes open, 30+ eyes closed PT-OP-E Functional Tests Start: 01/31/24 14:55 Freq: Status: Active Protocol: Document 04/22/24 12:00 DCW (Rec: 04/22/24 12:18 DCW [id number]) Functional Tests 30 Second Sit to Stand Test Score x10 repetitions Comments UE use, controlled descent Timed Up and Go (TUG) Score 40.49 Comments /c LBQC TUG Impairment Rating 100% Impaired (Score 20) PT-OP-G Mobility & Gait Start: 01/31/24 14:55 Freq: Status: Active Protocol: Document 04/22/24 12:00 DCW (Rec: 04/22/24 12:08 DCW [id number]) OP Gait Assessment Assistive Devices Assistive Device Gait Belt,Large Based Quad Cane Gait Deviations General Gait Pattern Antalgic,Ataxic,Decreased Stride Length,Decreased Feet Clearance,Flexed Trunk,Lateral Trunk Lean,Step-to Gait Factors Limiting Gait Function Factors Limiting Gait Function Decreased Activity Tolerance, Decreased Strength,Difficulty Following Directions, Incoordination,Poor Balance, Poor Safety Awareness Stair Climbing Evaluation Evaluation Level of Assist On Stairs Standby Assistance Devices Stair Climbing Assistive Devices Left Railing,Right Railing Technique/Endurance Stair Climbing Direction Ascend and Descend Stair Climbing Technique Step to Step PT-OP-M Strength Start: 01/31/24 14:55 Freq: Status: Active Protocol: Document 04/22/24 12:00 DCW (Rec: 04/22/24 12:18 DCW [id number]) Hip Strength Hip Manual Muscle Testing Right Flexion (L2) 2+ Poor+ Abduction 2- Poor- Adduction 2+ Poor+ External Rotation 0 Zero Internal Rotation 0 Zero Left Flexion (L2) 4- Good- Abduction 4- Good- Adduction 4- Good- External Rotation 4+ Good+ Internal Rotation 4+ Good+ Knee Strength Knee Manual Muscle Testing Right Flexion (S2) 2- Poor- Extension (L3) 3 Fair Left Flexion (S2) 5 Normal Extension (L3) 5 Normal PT-OP-Q Treatments Start: 01/31/24 14:55 Freq: Status: Active Protocol: Document 04/29/24 12:59 AB (Rec: 04/29/24 13:48 AB [id number]) Gym Equipment Shuttle Recovery Unilateral Squats Details right UE only Resistance 25 # Reps/Time verbal cues to perform slowly Bilateral Squats Details ball between knees Resistance 62#(2 new bands)>50 # Shuttle Recovery Platform Stable Reps/Time 5 then 15 X2 due to grimacing and inc effort to perform task at 62 lb Therapeutic Exercises Sitting Exercises seated hip abduction Side right Equipment Used manual resistance Reps/Minutes one min hold Other Exercises scale step ups Other Exercise Name with and without UE support right LE CGA Reps/Minutes X10 Neuro Re-Education Treatment Balance Activities fwd, retro stepping in //bars Details fwd and retro on mat without and with balls under Equipment // bars Reps/Duration 10 feet X 6 10 feet X 1 lateral Comments cga to minimal assist Balloon volley ball Details balloon and racquet with balls Surface mat with objects under Comments CGA hands clasped on racquet PT-OP-T Assessment and Plan Start: 01/31/24 14:55 Freq: Status: Active Protocol: Document 04/29/24 12:59 AB (Rec: 04/29/24 13:48 AB [id number]) Physical Therapy Assessment Goals Two Impairment Pt ambulates 262 feet during his 6MWT, for a gait speed of 0.73 ft/sec Mems Device Scientist Goal (LTG) Pt to complete a 6MWT using a LBQC to ambulate >400', demonstrating an improved gait with a more efficient use of his AD 04/20/2024 254 feet with large based quad cane with 6 min walk test scuffing feet with hip strategy to self correct X 1. LTG Duration 07/21/24 One Impairment Pt does not have an appropriate home exercise program Short Term Goal (STG) Pt to be independent and compliant with an appropriate HEP 6/19/24: Poor compliance currently STG Duration 06/20/24 Assessment Summary Assessment Patient agreeable to all activities, but requires brief seated rests between activities, and between trials of an activity. Increased use of parallel bars required with retro stepping on mat with balls underneath. Physical Therapy Plan Frequency and Duration Frequency of Treatment 2x/Week Plan of Care Start Date 04/22/24 Plan of Care End Date 07/21/24 Next Visit Focus/Plan Next Note Type Treatment Note Next Visit Plan CHeck with pre tx how pt blood sugars are and if anything we need to know for PT. POC : Assess tolerance ther ex throughout tx: resistance shuttle recovery on RLE and uneven surface activities without UE support. POC: Gait training, strengthening, activity tolerance Possibly gait training pre and post supine to and from sit.
--- NOTE | 2024-05-05 14:33 | PT.OTN ---
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 (05/05/24) Aphasia following unspecified cerebrovascular disease (05/05/24) Unsteadiness on feet (05/05/24) Other abnormalities of gait and mobility (05/05/24) Repeated falls (05/05/24) Weakness (05/05/24) Personal history of transient ischemic attack (TIA), and cerebral infarction without residual deficits (05/05/24) Physical Therapy Treatment Note PT-OP-A Visit Information Start: 01/31/24 14:55 Freq: Status: Active Protocol: Document 05/05/24 13:45 DCW (Rec: 05/05/24 14:33 DCW [id number]) Out-Patient Physical Therapy Visit Information Visit Information Visit Type Treatment Note Visit Start Time 13:45 Visit Stop Time 14:30 Visit Number 23 Number of ASSEMBLER BODY Visits 0 Evaluation Information Evaluation Date 01/31/24 Precautions Precautions Pt almost entirely non-verbal PT-OP-B Current Condition Start: 01/31/24 14:55 Freq: Status: Active Protocol: Document 01/31/24 13:45 DCW (Rec: 01/31/24 17:08 DCW [id number]) Current Condition History of Current Condition Onset Date 2013 Current Complaints CVA, decrease in balance and activity tolerance History of Current Condition Pt is a 68 year old male who is 10 years s/p CVA which resulted in fairly severe right-sided hemiplegia. Pt has been seen at this facility multiple times off and on since his initial CVA to work on balance, gait, strength, activity toelrance, and functional mobility. Pt is largely non-verbal since his CVA. His attends today's evaluation reporting he has experienced a decline in function since he was last treated in PT (was last discharged 11/01/22). reports he was really struggling a few months ago, limited mobility and very limited energy, but they have recently had some changes to the treatment of his diabetes, which has helped. admits he still does not want to do a whole lot outside, and just seems to have a more difficult time moving around, appears to have greatly decreased confidence. Recently exhibiting slower gait. Also bring up possibility of getting w/c for longer outdoor activities, wondering about letter of medical necessity. PT-OP-C Subjective Start: 01/31/24 14:55 Freq: Status: Active Protocol: Document 05/05/24 13:45 DCW (Rec: 05/05/24 14:33 DCW [id number]) OP-PT Subjective Patient Comments Patient Comments Pt indicates he is enjoying the warm weather. PT-OP-D Balance Start: 01/31/24 14:55 Freq: Status: Active Protocol: Document 04/22/24 12:00 DCW (Rec: 04/22/24 12:18 DCW [id number]) Balance Tests Functional Reach Functional Reach Test 8 inches Functional Reach Impairment Rating 20 to <40% Impaired (Score 7-8 ) Romberg Romberg 30+ eyes open, 30+ eyes closed PT-OP-E Functional Tests Start: 01/31/24 14:55 Freq: Status: Active Protocol: Document 04/22/24 12:00 DCW (Rec: 04/22/24 12:18 DCW [id number]) Functional Tests 30 Second Sit to Stand Test Score x10 repetitions Comments UE use, controlled descent Timed Up and Go (TUG) Score 40.49 Comments /c LBQC TUG Impairment Rating 100% Impaired (Score 20) PT-OP-G Mobility & Gait Start: 01/31/24 14:55 Freq: Status: Active Protocol: Document 04/22/24 12:00 DCW (Rec: 04/22/24 12:08 DCW [id number]) OP Gait Assessment Assistive Devices Assistive Device Gait Belt,Large Based Quad Cane Gait Deviations General Gait Pattern Antalgic,Ataxic,Decreased Stride Length,Decreased Feet Clearance,Flexed Trunk,Lateral Trunk Lean,Step-to Gait Factors Limiting Gait Function Factors Limiting Gait Function Decreased Activity Tolerance, Decreased Strength,Difficulty Following Directions, Incoordination,Poor Balance, Poor Safety Awareness Stair Climbing Evaluation Evaluation Level of Assist On Stairs Standby Assistance Devices Stair Climbing Assistive Devices Left Railing,Right Railing Technique/Endurance Stair Climbing Direction Ascend and Descend Stair Climbing Technique Step to Step PT-OP-M Strength Start: 01/31/24 14:55 Freq: Status: Active Protocol: Document 04/22/24 12:00 DCW (Rec: 04/22/24 12:18 DCW [id number]) Hip Strength Hip Manual Muscle Testing Right Flexion (L2) 2+ Poor+ Abduction 2- Poor- Adduction 2+ Poor+ External Rotation 0 Zero Internal Rotation 0 Zero Left Flexion (L2) 4- Good- Abduction 4- Good- Adduction 4- Good- External Rotation 4+ Good+ Internal Rotation 4+ Good+ Knee Strength Knee Manual Muscle Testing Right Flexion (S2) 2- Poor- Extension (L3) 3 Fair Left Flexion (S2) 5 Normal Extension (L3) 5 Normal PT-OP-Q Treatments Start: 01/31/24 14:55 Freq: Status: Active Protocol: Document 05/05/24 13:45 DCW (Rec: 05/05/24 14:33 DCW [id number]) Cardio Equipment Recumbent Elliptical (Biodex) Duration (Minutes) 5 Resistance 5 Seat Position 10 Other left UE/ ralph LE's, occ tactile cue LLE abd midline neutral Gym Equipment Shuttle Recovery Unilateral Squats Resistance 37# L, 25# R Reps/Time verbal cues to perform slowly Bilateral Squats Details ball between knees Resistance 50 # Shuttle Recovery Platform Stable Shuttle Balance red clips Comments Staggered Stance Neuro Re-Education Treatment Balance Activities fwd, retro stepping in //bars Details fwd and retro @ rail Equipment // bars Reps/Duration 10 feet X 6 10 feet X 1 lateral Tandem Details Tandem Stance Comments set up with hands on bars then hands above bars CGA throughout Balloon volley ball Details racquet with balls Surface AirEx Comments CGA PT-OP-T Assessment and Plan Start: 01/31/24 14:55 Freq: Status: Active Protocol: Document 05/05/24 13:45 DCW (Rec: 05/05/24 14:33 DCW [id number]) Physical Therapy Assessment Impairments Impairments Activity Tolerance,Balance, Coordination,Functional Activities,Functional Mobility ,Gait,ROM,Soft Tissue Mobility ,Strength,Tone,Transfers Goals Two Impairment Pt ambulates 262 feet during his 6MWT, for a gait speed of 0.73 ft/sec Medication Assistant Goal (LTG) Pt to complete a 6MWT using a LBQC to ambulate >400', demonstrating an improved gait with a more efficient use of his AD 04/20/2024 254 feet with large based quad cane with 6 min walk test scuffing feet with hip strategy to self correct X 1. LTG Duration 07/21/24 One Impairment Pt does not have an appropriate home exercise program Short Term Goal (STG) Pt to be independent and compliant with an appropriate HEP 04/22/24: Poor compliance currently STG Duration 06/20/24 Assessment Summary Assessment Pt demonstrating improved stability on AirEx hitting balls with racquet, still struggling more with leg press , seemingly due to knee pain. Physical Therapy Plan Frequency and Duration Frequency of Treatment 2x/Week Plan of Care Start Date 04/22/24 Plan of Care End Date 07/21/24 Therapeutic Interventions Therapeutic Interventions Balance Training,Gait Training ,Home Exercise Program,Manual Therapy,Neuromuscular Re- education,Patient/Caregiver Education,Self-Care/Home Management,Soft Tissue Mobilization,Therapeutic Activities,Therapeutic Exercises,Vestibular Rehabilitation,Wheelchair Management Next Visit Focus/Plan Next Note Type Treatment Note Next Visit Plan Check with pre tx how pt blood sugars are and if anything we need to know for PT. POC : Assess tolerance ther ex throughout tx: resistance shuttle recovery on RLE and uneven surface activities without UE support. POC: Gait training, strengthening, activity tolerance Possibly gait training pre and post supine to and from sit.
--- NOTE | 2024-05-13 14:58 | PT-OP ANOTE ---
Pt did not show for appt today, SOFTWARE PROGRAM MANAGER called pt's and caregiver forgot to get pt to appt. SOFTWARE PROGRAM MANAGER assisted reschedule to tomorrow and added another appt to next week. SUggested with ask for pt put on waiting list for 2nd appt during each week per written POC.
--- NOTE | 2024-05-14 16:48 | PT.OTN ---
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 (05/14/24) Aphasia following unspecified cerebrovascular disease (05/14/24) Unsteadiness on feet (05/14/24) Other abnormalities of gait and mobility (05/14/24) Repeated falls (05/14/24) Weakness (05/14/24) Personal history of transient ischemic attack (TIA), and cerebral infarction without residual deficits (05/14/24) Physical Therapy Treatment Note PT-OP-A Visit Information Start: 01/31/24 14:55 Freq: Status: Active Protocol: Document 05/14/24 16:03 DCW (Rec: 05/14/24 16:48 DCW [id number]) Out-Patient Physical Therapy Visit Information Visit Information Visit Type Treatment Note Visit Start Time 16:03 Visit Stop Time 16:45 Visit Number 24 Number of PODIATRIC SURGEON Visits 0 Evaluation Information Evaluation Date 01/31/24 Precautions Precautions Pt almost entirely non-verbal PT-OP-B Current Condition Start: 01/31/24 14:55 Freq: Status: Active Protocol: Document 01/31/24 13:45 DCW (Rec: 01/31/24 17:08 DCW [id number]) Current Condition History of Current Condition Onset Date 2013 Current Complaints CVA, decrease in balance and activity tolerance History of Current Condition Pt is a 68 year old male who is 10 years s/p CVA which resulted in fairly severe right-sided hemiplegia. Pt has been seen at this facility multiple times off and on since his initial CVA to work on balance, gait, strength, activity toelrance, and functional mobility. Pt is largely non-verbal since his CVA. His attends today's evaluation reporting he has experienced a decline in function since he was last treated in PT (was last discharged 11/01/22). reports he was really struggling a few months ago, limited mobility and very limited energy, but they have recently had some changes to the treatment of his diabetes, which has helped. admits he still does not want to do a whole lot outside, and just seems to have a more difficult time moving around, appears to have greatly decreased confidence. Recently exhibiting slower gait. Also bring up possibility of getting w/c for longer outdoor activities, wondering about letter of medical necessity. PT-OP-C Subjective Start: 01/31/24 14:55 Freq: Status: Active Protocol: Document 05/14/24 16:03 DCW (Rec: 05/14/24 16:48 DCW [id number]) OP-PT Subjective Patient Comments Patient Comments Pt appears to be fatigued today. PT-OP-D Balance Start: 01/31/24 14:55 Freq: Status: Active Protocol: Document 04/22/24 12:00 DCW (Rec: 04/22/24 12:18 DCW [id number]) Balance Tests Functional Reach Functional Reach Test 8 inches Functional Reach Impairment Rating 20 to <40% Impaired (Score 7-8 ) Romberg Romberg 30+ eyes open, 30+ eyes closed PT-OP-E Functional Tests Start: 01/31/24 14:55 Freq: Status: Active Protocol: Document 04/22/24 12:00 DCW (Rec: 04/22/24 12:18 DCW [id number]) Functional Tests 30 Second Sit to Stand Test Score x10 repetitions Comments UE use, controlled descent Timed Up and Go (TUG) Score 40.49 Comments /c LBQC TUG Impairment Rating 100% Impaired (Score 20) PT-OP-G Mobility & Gait Start: 01/31/24 14:55 Freq: Status: Active Protocol: Document 04/22/24 12:00 DCW (Rec: 04/22/24 12:08 DCW [id number]) OP Gait Assessment Assistive Devices Assistive Device Gait Belt,Large Based Quad Cane Gait Deviations General Gait Pattern Antalgic,Ataxic,Decreased Stride Length,Decreased Feet Clearance,Flexed Trunk,Lateral Trunk Lean,Step-to Gait Factors Limiting Gait Function Factors Limiting Gait Function Decreased Activity Tolerance, Decreased Strength,Difficulty Following Directions, Incoordination,Poor Balance, Poor Safety Awareness Stair Climbing Evaluation Evaluation Level of Assist On Stairs Standby Assistance Devices Stair Climbing Assistive Devices Left Railing,Right Railing Technique/Endurance Stair Climbing Direction Ascend and Descend Stair Climbing Technique Step to Step PT-OP-M Strength Start: 01/31/24 14:55 Freq: Status: Active Protocol: Document 04/22/24 12:00 DCW (Rec: 04/22/24 12:18 DCW [id number]) Hip Strength Hip Manual Muscle Testing Right Flexion (L2) 2+ Poor+ Abduction 2- Poor- Adduction 2+ Poor+ External Rotation 0 Zero Internal Rotation 0 Zero Left Flexion (L2) 4- Good- Abduction 4- Good- Adduction 4- Good- External Rotation 4+ Good+ Internal Rotation 4+ Good+ Knee Strength Knee Manual Muscle Testing Right Flexion (S2) 2- Poor- Extension (L3) 3 Fair Left Flexion (S2) 5 Normal Extension (L3) 5 Normal PT-OP-Q Treatments Start: 01/31/24 14:55 Freq: Status: Active Protocol: Document 05/14/24 16:03 DCW (Rec: 05/14/24 16:48 DCW [id number]) Cardio Equipment Recumbent Elliptical ([employer]ov[employer]) Duration (Minutes) 5 Resistance 5 Seat Position 10 Other left UE/ ralph LE's, occ tactile cue LLE abd midline neutral Gym Equipment Shuttle Balance red clips Comments Staggered Stance Therapeutic Exercises Standing Exercises retro stepping Side bilateral Reps/Minutes 10 feet X 3 Comments CGA. VC for posture, tactile cues at pelvis occ resisted side stepping Standing Exercise Name CGA Side bilateral Resistance Lv 2 T-band Equipment Used rail LUE support Reps/Minutes 10 feet X 2 left and right Neuro Re-Education Treatment Balance Activities Tilt board Details Tilt board Comments Lateral weight shift Uneven Gait Comments Ambulating over blue pads with obstacles underneath foam Details EO/EC Surface AirEx PT-OP-T Assessment and Plan Start: 01/31/24 14:55 Freq: Status: Active Protocol: Document 05/14/24 16:03 DCW (Rec: 05/14/24 16:48 DCW [id number]) Physical Therapy Assessment Impairments Impairments Activity Tolerance,Balance, Coordination,Functional Activities,Functional Mobility ,Gait,ROM,Soft Tissue Mobility ,Strength,Tone,Transfers Goals Two Impairment Pt ambulates 262 feet during his 6MWT, for a gait speed of 0.73 ft/sec [place] Goal (LTG) Pt to complete a 6MWT using a LBQC to ambulate >400', demonstrating an improved gait with a more efficient use of his AD 04/20/2024 254 feet with large based quad cane with 6 min walk test scuffing feet with hip strategy to self correct X 1. LTG Duration 07/21/24 One Impairment Pt does not have an appropriate home exercise program Short Term Goal (STG) Pt to be independent and compliant with an appropriate HEP 04/22/24: Poor compliance currently STG Duration 06/20/24 Assessment Summary Assessment Doing well with various balance challenges, holding tandem stance with less difficulty than previous session. Physical Therapy Plan Frequency and Duration Frequency of Treatment 2x/Week Plan of Care Start Date 04/22/24 Plan of Care End Date 07/21/24 Therapeutic Interventions Therapeutic Interventions Balance Training,Gait Training ,Home Exercise Program,Manual Therapy,Neuromuscular Re- education,Patient/Caregiver Education,Self-Care/Home Management,Soft Tissue Mobilization,Therapeutic Activities,Therapeutic Exercises,Vestibular Rehabilitation,Wheelchair Management Next Visit Focus/Plan Next Note Type Treatment Note Next Visit Plan Check with pre tx how pt blood sugars are and if anything we need to know for PT. POC : Assess tolerance ther ex throughout tx: resistance shuttle recovery on RLE and uneven surface activities without UE support. POC: Gait training, strengthening, activity tolerance Possibly gait training pre and post supine to and from sit.
--- NOTE | 2024-05-20 14:57 | PT.OTN ---
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 (05/20/24) Aphasia following unspecified cerebrovascular disease (05/20/24) Unsteadiness on feet (05/20/24) Other abnormalities of gait and mobility (05/20/24) Repeated falls (05/20/24) Weakness (05/20/24) Personal history of transient ischemic attack (TIA), and cerebral infarction without residual deficits (05/20/24) Physical Therapy Treatment Note PT-OP-A Visit Information Start: 01/31/24 14:55 Freq: Status: Active Protocol: Document 05/20/24 13:48 AB (Rec: 05/20/24 14:56 AB [id number]) Out-Patient Physical Therapy Visit Information Visit Information Visit Type Treatment Note Visit Start Time 13:50 Visit Stop Time 14:33 Visit Number 25 Number of GIFT SHOP CLERK Visits 1 Evaluation Information Evaluation Date 01/31/24 Precautions Precautions Pt almost entirely non-verbal PT-OP-B Current Condition Start: 01/31/24 14:55 Freq: Status: Active Protocol: Document 01/31/24 13:45 DCW (Rec: 01/31/24 17:08 DCW [id number]) Current Condition History of Current Condition Onset Date 2013 Current Complaints CVA, decrease in balance and activity tolerance History of Current Condition Pt is a 68 year old male who is 10 years s/p CVA which resulted in fairly severe right-sided hemiplegia. Pt has been seen at this facility multiple times off and on since his initial CVA to work on balance, gait, strength, activity toelrance, and functional mobility. Pt is largely non-verbal since his CVA. His attends today's evaluation reporting he has experienced a decline in function since he was last treated in PT (was last discharged 11/01/22). reports he was really struggling a few months ago, limited mobility and very limited energy, but they have recently had some changes to the treatment of his diabetes, which has helped. admits he still does not want to do a whole lot outside, and just seems to have a more difficult time moving around, appears to have greatly decreased confidence. Recently exhibiting slower gait. Also bring up possibility of getting w/c for longer outdoor activities, wondering about letter of medical necessity. PT-OP-C Subjective Start: 03/29/24 14:55 Freq: Status: Active Protocol: Document 05/20/24 13:48 AB (Rec: 05/20/24 14:56 AB [id number]) OP-PT Subjective Patient Comments Patient Comments Pt nods no when questioned regarding falls. Patient nods yes to using shuttle leg press. PT-OP-D Balance Start: 01/31/24 14:55 Freq: Status: Active Protocol: Document 04/22/24 12:00 DCW (Rec: 04/22/24 12:18 DCW [id number]) Balance Tests Functional Reach Functional Reach Test 8 inches Functional Reach Impairment Rating 20 to <40% Impaired (Score 7-8 ) Romberg Romberg 30+ eyes open, 30+ eyes closed PT-OP-E Functional Tests Start: 01/31/24 14:55 Freq: Status: Active Protocol: Document 04/22/24 12:00 DCW (Rec: 04/22/24 12:18 DCW [id number]) Functional Tests 30 Second Sit to Stand Test Score x10 repetitions Comments UE use, controlled descent Timed Up and Go (TUG) Score 40.49 Comments /c LBQC TUG Impairment Rating 100% Impaired (Score 20) PT-OP-G Mobility & Gait Start: 01/31/24 14:55 Freq: Status: Active Protocol: Document 04/22/24 12:00 DCW (Rec: 04/22/24 12:08 DCW [id number]) OP Gait Assessment Assistive Devices Assistive Device Gait Belt,Large Based Quad Cane Gait Deviations General Gait Pattern Antalgic,Ataxic,Decreased Stride Length,Decreased Feet Clearance,Flexed Trunk,Lateral Trunk Lean,Step-to Gait Factors Limiting Gait Function Factors Limiting Gait Function Decreased Activity Tolerance, Decreased Strength,Difficulty Following Directions, Incoordination,Poor Balance, Poor Safety Awareness Stair Climbing Evaluation Evaluation Level of Assist On Stairs Standby Assistance Devices Stair Climbing Assistive Devices Left Railing,Right Railing Technique/Endurance Stair Climbing Direction Ascend and Descend Stair Climbing Technique Step to Step PT-OP-M Strength Start: 01/31/24 14:55 Freq: Status: Active Protocol: Document 04/22/24 12:00 DCW (Rec: 04/22/24 12:18 DCW [id number]) Hip Strength Hip Manual Muscle Testing Right Flexion (L2) 2+ Poor+ Abduction 2- Poor- Adduction 2+ Poor+ External Rotation 0 Zero Internal Rotation 0 Zero Left Flexion (L2) 4- Good- Abduction 4- Good- Adduction 4- Good- External Rotation 4+ Good+ Internal Rotation 4+ Good+ Knee Strength Knee Manual Muscle Testing Right Flexion (S2) 2- Poor- Extension (L3) 3 Fair Left Flexion (S2) 5 Normal Extension (L3) 5 Normal PT-OP-Q Treatments Start: 01/31/24 14:55 Freq: Status: Active Protocol: Document 05/20/24 13:48 AB (Rec: 05/20/24 14:56 AB [id number]) Gym Equipment Shuttle Recovery Unilateral Squats Resistance 37# to 25# L, 25# R Reps/Time X15 each ( dec weight on left to 25 at 9th repetition. Bilateral Squats Details ball between knees Resistance 50 # Shuttle Recovery Platform Stable,Unstable Reps/Time X15 each stable and unstable Shuttle Balance red clips Comments Staggered Stance CGA to minimal assist, head turns and verbal cues for visual scanning Therapeutic Exercises Sitting Exercises seated hip abduction Side right Equipment Used manual resistance Reps/Minutes 30 sec hold and X 5 without hold cues at left LE Hamstring Curls Sitting Exercise Name Hamstring Curls Side bilateral Resistance R and left rolling scooter + L2 TB Reps/Minutes x10 R and left Comments Tactile Cues at HS R- improved , guide scooter Standing Exercises sit to stand Standing Exercise Name Mirror in front, VC to center body in mirror Side bilateral Reps/Minutes X2 Neuro Re-Education Treatment Balance Activities side stepping Details hands above bar, right UE on bar only ( w and w/o towel under UE) Reps/Duration 10 feet left and right X 2 Comments CGA fwd, retro stepping in //bars Details fwd and retro @ rail Equipment // bars Reps/Duration 10 feet X 1 fwd and retro CGA Comments limited by quad shaking Mirror for Fwd Balloon volley ball Details racquet with balls ( bilateral UE on racquet Surface AirEx Comments CGA PT-OP-T Assessment and Plan Start: 01/31/24 14:55 Freq: Status: Active Protocol: Document 05/20/24 13:48 AB (Rec: 05/20/24 14:56 AB [id number]) Physical Therapy Assessment Goals Two Impairment Pt ambulates 262 feet during his 6MWT, for a gait speed of 0.73 ft/sec Cfo Controller Goal (LTG) Pt to complete a 6MWT using a LBQC to ambulate >400', demonstrating an improved gait with a more efficient use of his AD 04/20/2024 254 feet with large based quad cane with 6 min walk test scuffing feet with hip strategy to self correct X 1. LTG Duration 07/21/24 One Impairment Pt does not have an appropriate home exercise program Short Term Goal (STG) Pt to be independent and compliant with an appropriate HEP 04/22/24: Poor compliance currently STG Duration 06/20/24 Assessment Summary Assessment Right quad shaking limited standing exercises/ambulation/ SL balance activities during session. Sukh nods no when questioned regarding pain and yes when questioned regarding fatigue end of session. Physical Therapy Plan Frequency and Duration Frequency of Treatment 2x/Week Plan of Care Start Date 04/22/24 Plan of Care End Date 07/21/24 Next Visit Focus/Plan Next Note Type Treatment Note Next Visit Plan Check with pre tx how pt blood sugars are and if anything we need to know for PT. POC : Assess tolerance ther ex throughout tx: resistance shuttle recovery on RLE and uneven surface activities without UE support. POC: Gait training, strengthening, activity tolerance Possibly gait training pre and post supine to and from sit.
--- NOTE | 2024-06-03 16:17 | PT.OTN ---
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 (06/03/24) Aphasia following unspecified cerebrovascular disease (06/03/24) Unsteadiness on feet (06/03/24) Other abnormalities of gait and mobility (06/03/24) Repeated falls (06/03/24) Weakness (06/03/24) Personal history of transient ischemic attack (TIA), and cerebral infarction without residual deficits (06/03/24) Physical Therapy Treatment Note PT-OP-A Visit Information Start: 01/31/24 14:55 Freq: Status: Active Protocol: Document 06/03/24 13:00 AB (Rec: 06/03/24 16:17 AB [id number]) Out-Patient Physical Therapy Visit Information Visit Information Visit Type Treatment Note Visit Start Time 13:47 Visit Stop Time 14:30 Visit Number 26 Number of PILLOW AGENT Visits 2 Evaluation Information Evaluation Date 01/31/24 Precautions Precautions Pt almost entirely non-verbal PT-OP-B Current Condition Start: 01/31/24 14:55 Freq: Status: Active Protocol: Document 01/31/24 13:45 DCW (Rec: 01/31/24 17:08 DCW [id number]) Current Condition History of Current Condition Onset Date 2013 Current Complaints CVA, decrease in balance and activity tolerance History of Current Condition Pt is a 68 year old male who is 10 years s/p CVA which resulted in fairly severe right-sided hemiplegia. Pt has been seen at this facility multiple times off and on since his initial CVA to work on balance, gait, strength, activity toelrance, and functional mobility. Pt is largely non-verbal since his CVA. His attends today's evaluation reporting he has experienced a decline in function since he was last treated in PT (was last discharged 11/01/22). reports he was really struggling a few months ago, limited mobility and very limited energy, but they have recently had some changes to the treatment of his diabetes, which has helped. admits he still does not want to do a whole lot outside, and just seems to have a more difficult time moving around, appears to have greatly decreased confidence. Recently exhibiting slower gait. Also bring up possibility of getting w/c for longer outdoor activities, wondering about letter of medical necessity. PT-OP-C Subjective Start: 03/29/24 14:55 Freq: Status: Active Protocol: Document 06/03/24 13:00 AB (Rec: 06/03/24 16:17 AB [id number]) OP-PT Subjective Patient Comments Patient Comments Patient nods no when questioned regarding falls and pain, shrugs when questioned regarding high or low sugar. PT-OP-D Balance Start: 01/31/24 14:55 Freq: Status: Active Protocol: Document 04/22/24 12:00 DCW (Rec: 04/22/24 12:18 DCW [id number]) Balance Tests Functional Reach Functional Reach Test 8 inches Functional Reach Impairment Rating 20 to <40% Impaired (Score 7-8 ) Romberg Romberg 30+ eyes open, 30+ eyes closed PT-OP-E Functional Tests Start: 01/31/24 14:55 Freq: Status: Active Protocol: Document 04/22/24 12:00 DCW (Rec: 04/22/24 12:18 DCW [id number]) Functional Tests 30 Second Sit to Stand Test Score x10 repetitions Comments UE use, controlled descent Timed Up and Go (TUG) Score 40.49 Comments /c LBQC TUG Impairment Rating 100% Impaired (Score 20) PT-OP-G Mobility & Gait Start: 01/31/24 14:55 Freq: Status: Active Protocol: Document 04/22/24 12:00 DCW (Rec: 04/22/24 12:08 DCW [id number]) OP Gait Assessment Assistive Devices Assistive Device Gait Belt,Large Based Quad Cane Gait Deviations General Gait Pattern Antalgic,Ataxic,Decreased Stride Length,Decreased Feet Clearance,Flexed Trunk,Lateral Trunk Lean,Step-to Gait Factors Limiting Gait Function Factors Limiting Gait Function Decreased Activity Tolerance, Decreased Strength,Difficulty Following Directions, Incoordination,Poor Balance, Poor Safety Awareness Stair Climbing Evaluation Evaluation Level of Assist On Stairs Standby Assistance Devices Stair Climbing Assistive Devices Left Railing,Right Railing Technique/Endurance Stair Climbing Direction Ascend and Descend Stair Climbing Technique Step to Step PT-OP-M Strength Start: 01/31/24 14:55 Freq: Status: Active Protocol: Document 04/22/24 12:00 DCW (Rec: 04/22/24 12:18 DCW [id number]) Hip Strength Hip Manual Muscle Testing Right Flexion (L2) 2+ Poor+ Abduction 2- Poor- Adduction 2+ Poor+ External Rotation 0 Zero Internal Rotation 0 Zero Left Flexion (L2) 4- Good- Abduction 4- Good- Adduction 4- Good- External Rotation 4+ Good+ Internal Rotation 4+ Good+ Knee Strength Knee Manual Muscle Testing Right Flexion (S2) 2- Poor- Extension (L3) 3 Fair Left Flexion (S2) 5 Normal Extension (L3) 5 Normal PT-OP-Q Treatments Start: 01/31/24 14:55 Freq: Status: Active Protocol: Document 06/03/24 13:00 AB (Rec: 06/03/24 16:17 AB [id number]) Gym Equipment Shuttle Recovery Bilateral Squats Details ball between knees Resistance 50 # Shuttle Recovery Platform Stable,Unstable Reps/Time X18 each stable and unstable Therapeutic Exercises Sitting Exercises seated hip abduction Side right Equipment Used manual resistance Reps/Minutes 30 sec hold and X 5 without hold cues at left LE Other Exercises scale step ups Other Exercise Name with UE support CGA Side right Reps/Minutes X10 Neuro Re-Education Treatment Balance Activities fwd, retro stepping in //bars Details fwd and retro @ rail Equipment // bars hands above bars Reps/Duration 10 feet X 2 fwd and retro CGA Tandem Details Tandem Stance Comments hands on bars 10 ft X 2 on foam with eyes closed, head turns and visual scanning Balloon volley ball Details racquet with balloon on air ex Surface Air ex Comments NBOS and Romberg CGA step up taps Details right Surface CGA via GB with UE support Equipment 2 inch step Comments facilitation right pelvic foam Details EO/EC Surface AirEx Comments Romberg position CGA PT-OP-T Assessment and Plan Start: 01/31/24 14:55 Freq: Status: Active Protocol: Document 06/03/24 13:00 AB (Rec: 06/03/24 16:17 AB [id number]) Physical Therapy Assessment Goals Two Impairment Pt ambulates 262 feet during his 6MWT, for a gait speed of 0.73 ft/sec Group Home Goal (LTG) Pt to complete a 6MWT using a LBQC to ambulate >400', demonstrating an improved gait with a more efficient use of his AD 04/20/2024 254 feet with large based quad cane with 6 min walk test scuffing feet with hip strategy to self correct X 1. LTG Duration 07/21/24 One Impairment Pt does not have an appropriate home exercise program Short Term Goal (STG) Pt to be independent and compliant with an appropriate HEP 04/22/24: Poor compliance currently STG Duration 06/20/24 Assessment Summary Assessment Patient nods no when questioned regarding pain end of session. Physical Therapy Plan Frequency and Duration Frequency of Treatment 2x/Week Plan of Care Start Date 04/22/24 Plan of Care End Date 07/21/24 Next Visit Focus/Plan Next Note Type Treatment Note Next Visit Plan Check with pre tx how pt blood sugars are and if anything we need to know for PT. POC : Assess tolerance ther ex throughout tx: resistance shuttle recovery on RLE and uneven surface activities without UE support. POC: Gait training, strengthening, activity tolerance Possibly gait training pre and post supine to and from sit.
--- NOTE | 2024-06-09 16:21 | PT.OTN ---
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 (06/09/24) Aphasia following unspecified cerebrovascular disease (06/09/24) Unsteadiness on feet (06/09/24) Other abnormalities of gait and mobility (06/09/24) Repeated falls (06/09/24) Weakness (06/09/24) Personal history of transient ischemic attack (TIA), and cerebral infarction without residual deficits (06/09/24) Physical Therapy Treatment Note PT-OP-A Visit Information Start: 01/31/24 14:55 Freq: Status: Active Protocol: Document 06/09/24 13:38 AB (Rec: 06/09/24 16:21 AB [id number]) Out-Patient Physical Therapy Visit Information Visit Information Visit Type Treatment Note Visit Start Time 13:48 Visit Stop Time 14:30 Visit Number 27 Number of MANAGER TALENT ACQUISITION Visits 3 Evaluation Information Evaluation Date 01/31/24 Precautions Precautions Pt almost entirely non-verbal PT-OP-B Current Condition Start: 01/31/24 14:55 Freq: Status: Active Protocol: Document 01/31/24 13:45 DCW (Rec: 01/31/24 17:08 DCW [id number]) Current Condition History of Current Condition Onset Date 2013 Current Complaints CVA, decrease in balance and activity tolerance History of Current Condition Pt is a 68 year old male who is 10 years s/p CVA which resulted in fairly severe right-sided hemiplegia. Pt has been seen at this facility multiple times off and on since his initial CVA to work on balance, gait, strength, activity toelrance, and functional mobility. Pt is largely non-verbal since his CVA. His attends today's evaluation reporting he has experienced a decline in function since he was last treated in PT (was last discharged 11/01/22). reports he was really struggling a few months ago, limited mobility and very limited energy, but they have recently had some changes to the treatment of his diabetes, which has helped. admits he still does not want to do a whole lot outside, and just seems to have a more difficult time moving around, appears to have greatly decreased confidence. Recently exhibiting slower gait. Also bring up possibility of getting w/c for longer outdoor activities, wondering about letter of medical necessity. PT-OP-C Subjective Start: 03/29/24 14:55 Freq: Status: Active Protocol: Document 06/09/24 13:38 AB (Rec: 06/09/24 16:21 AB [id number]) OP-PT Subjective Patient Comments Patient Comments Patient nods no when questioned regarding pain and falls. PT-OP-D Balance Start: 01/31/24 14:55 Freq: Status: Active Protocol: Document 04/22/24 12:00 DCW (Rec: 04/22/24 12:18 DCW [id number]) Balance Tests Functional Reach Functional Reach Test 8 inches Functional Reach Impairment Rating 20 to <40% Impaired (Score 7-8 ) Romberg Romberg 30+ eyes open, 30+ eyes closed PT-OP-E Functional Tests Start: 01/31/24 14:55 Freq: Status: Active Protocol: Document 04/22/24 12:00 DCW (Rec: 04/22/24 12:18 DCW [id number]) Functional Tests 30 Second Sit to Stand Test Score x10 repetitions Comments UE use, controlled descent Timed Up and Go (TUG) Score 40.49 Comments /c LBQC TUG Impairment Rating 100% Impaired (Score 20) PT-OP-G Mobility & Gait Start: 01/31/24 14:55 Freq: Status: Active Protocol: Document 04/22/24 12:00 DCW (Rec: 04/22/24 12:08 DCW [id number]) OP Gait Assessment Assistive Devices Assistive Device Gait Belt,Large Based Quad Cane Gait Deviations General Gait Pattern Antalgic,Ataxic,Decreased Stride Length,Decreased Feet Clearance,Flexed Trunk,Lateral Trunk Lean,Step-to Gait Factors Limiting Gait Function Factors Limiting Gait Function Decreased Activity Tolerance, Decreased Strength,Difficulty Following Directions, Incoordination,Poor Balance, Poor Safety Awareness Stair Climbing Evaluation Evaluation Level of Assist On Stairs Standby Assistance Devices Stair Climbing Assistive Devices Left Railing,Right Railing Technique/Endurance Stair Climbing Direction Ascend and Descend Stair Climbing Technique Step to Step PT-OP-M Strength Start: 01/31/24 14:55 Freq: Status: Active Protocol: Document 04/22/24 12:00 DCW (Rec: 04/22/24 12:18 DCW [id number]) Hip Strength Hip Manual Muscle Testing Right Flexion (L2) 2+ Poor+ Abduction 2- Poor- Adduction 2+ Poor+ External Rotation 0 Zero Internal Rotation 0 Zero Left Flexion (L2) 4- Good- Abduction 4- Good- Adduction 4- Good- External Rotation 4+ Good+ Internal Rotation 4+ Good+ Knee Strength Knee Manual Muscle Testing Right Flexion (S2) 2- Poor- Extension (L3) 3 Fair Left Flexion (S2) 5 Normal Extension (L3) 5 Normal PT-OP-Q Treatments Start: 01/31/24 14:55 Freq: Status: Active Protocol: Document 06/09/24 13:38 AB (Rec: 06/09/24 16:21 AB [id number]) Therapeutic Exercises Sitting Exercises seated hip abduction Side right Equipment Used manual resistance Reps/Minutes 30 sec hold and X 5 without hold cues at left LE LAQ Sitting Exercise Name LAQ Side bilateral Reps/Minutes X12 Standing Exercises resisted side stepping Standing Exercise Name CGA Side bilateral Resistance Lv 2 T-band Equipment Used rail LUE support Reps/Minutes 10 feet X 2 left and right Other Exercises stagger stance sit to stand Other Exercise Name with one to hand on knee UE use CGA Reps/Minutes X10 Neuro Re-Education Treatment Balance Activities Tilt board Details Tilt board Comments Lateral weight shift and AP hands above bars CGA fwd, retro stepping in //bars Details fwd and retro @ rail Equipment // bars hands above bars Reps/Duration 10 feet X 2 fwd and retro CGA Tandem Details Tandem Stance Comments hands on bars 10 ft X 2 also with eyes closed, X5 step up taps Details bilateral Surface CGA via GB with UE support Equipment on foam pad Reps/Duration X10 and X 4 each LE hurdles Details Hurdles Equipment // bars with UE support and CGA Reps/Duration 10 feet X 2 PT-OP-T Assessment and Plan Start: 01/31/24 14:55 Freq: Status: Active Protocol: Document 06/09/24 13:38 AB (Rec: 06/09/24 16:21 AB [id number]) Physical Therapy Assessment Goals Two Impairment Pt ambulates 262 feet during his 6MWT, for a gait speed of 0.73 ft/sec Grades 9 Through 12 Teacher Goal (LTG) Pt to complete a 6MWT using a LBQC to ambulate >400', demonstrating an improved gait with a more efficient use of his AD 04/20/2024 254 feet with large based quad cane with 6 min walk test scuffing feet with hip strategy to self correct X 1. LTG Duration 07/21/24 One Impairment Pt does not have an appropriate home exercise program Short Term Goal (STG) Pt to be independent and compliant with an appropriate HEP 04/22/24: Poor compliance currently STG Duration 06/20/24 Assessment Summary Assessment Patient nods no when questioned end of session regarding pain. Patient continues to require UE use for hurdles. Sit to hop trainer stagger stance with hand on knee vs UE support an arm rest this session. Physical Therapy Plan Frequency and Duration Frequency of Treatment 2x/Week Plan of Care Start Date 04/22/24 Plan of Care End Date 07/21/24 Next Visit Focus/Plan Next Note Type Treatment Note Next Visit Plan Check with pre tx how pt blood sugars are and if anything we need to know for PT. POC : Assess tolerance ther ex throughout tx: resistance shuttle recovery on RLE and uneven surface activities without UE support. POC: Gait training, strengthening, activity tolerance Possibly gait training pre and post supine to and from sit.
--- NOTE | 2024-06-11 12:00 | PT.OTN ---
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 (06/11/24) Aphasia following unspecified cerebrovascular disease (06/11/24) Unsteadiness on feet (06/11/24) Other abnormalities of gait and mobility (06/11/24) Repeated falls (06/11/24) Weakness (06/11/24) Personal history of transient ischemic attack (TIA), and cerebral infarction without residual deficits (06/11/24) Physical Therapy Treatment Note PT-OP-A Visit Information Start: 01/31/24 14:55 Freq: Status: Active Protocol: Document 06/11/24 11:15 DCW (Rec: 06/11/24 12:00 DCW [id number]) Out-Patient Physical Therapy Visit Information Visit Information Visit Type Treatment Note Visit Start Time 11:15 Visit Stop Time 12:00 Visit Number 28 Number of MEDIA SERVICES COORDINATOR Visits 0 Evaluation Information Evaluation Date 01/31/24 Precautions Precautions Pt almost entirely non-verbal PT-OP-B Current Condition Start: 01/31/24 14:55 Freq: Status: Active Protocol: Document 01/31/24 13:45 DCW (Rec: 01/31/24 17:08 DCW [id number]) Current Condition History of Current Condition Onset Date 2013 Current Complaints CVA, decrease in balance and activity tolerance History of Current Condition Pt is a 68 year old male who is 10 years s/p CVA which resulted in fairly severe right-sided hemiplegia. Pt has been seen at this facility multiple times off and on since his initial CVA to work on balance, gait, strength, activity toelrance, and functional mobility. Pt is largely non-verbal since his CVA. His attends today's evaluation reporting he has experienced a decline in function since he was last treated in PT (was last discharged 11/01/22). reports he was really struggling a few months ago, limited mobility and very limited energy, but they have recently had some changes to the treatment of his diabetes, which has helped. admits he still does not want to do a whole lot outside, and just seems to have a more difficult time moving around, appears to have greatly decreased confidence. Recently exhibiting slower gait. Also bring up possibility of getting w/c for longer outdoor activities, wondering about letter of medical necessity. PT-OP-C Subjective Start: 01/31/24 14:55 Freq: Status: Active Protocol: Document 06/11/24 11:15 DCW (Rec: 06/11/24 12:00 DCW [id number]) OP-PT Subjective Patient Comments Patient Comments Pt indicates that he is doing well today. PT-OP-D Balance Start: 01/31/24 14:55 Freq: Status: Active Protocol: Document 04/22/24 12:00 DCW (Rec: 04/22/24 12:18 DCW [id number]) Balance Tests Functional Reach Functional Reach Test 8 inches Functional Reach Impairment Rating 20 to <40% Impaired (Score 7-8 ) Romberg Romberg 30+ eyes open, 30+ eyes closed PT-OP-E Functional Tests Start: 01/31/24 14:55 Freq: Status: Active Protocol: Document 04/22/24 12:00 DCW (Rec: 04/22/24 12:18 DCW [id number]) Functional Tests 30 Second Sit to Stand Test Score x10 repetitions Comments UE use, controlled descent Timed Up and Go (TUG) Score 40.49 Comments /c LBQC TUG Impairment Rating 100% Impaired (Score 20) PT-OP-G Mobility & Gait Start: 01/31/24 14:55 Freq: Status: Active Protocol: Document 04/22/24 12:00 DCW (Rec: 04/22/24 12:08 DCW [id number]) OP Gait Assessment Assistive Devices Assistive Device Gait Belt,Large Based Quad Cane Gait Deviations General Gait Pattern Antalgic,Ataxic,Decreased Stride Length,Decreased Feet Clearance,Flexed Trunk,Lateral Trunk Lean,Step-to Gait Factors Limiting Gait Function Factors Limiting Gait Function Decreased Activity Tolerance, Decreased Strength,Difficulty Following Directions, Incoordination,Poor Balance, Poor Safety Awareness Stair Climbing Evaluation Evaluation Level of Assist On Stairs Standby Assistance Devices Stair Climbing Assistive Devices Left Railing,Right Railing Technique/Endurance Stair Climbing Direction Ascend and Descend Stair Climbing Technique Step to Step PT-OP-M Strength Start: 01/31/24 14:55 Freq: Status: Active Protocol: Document 04/22/24 12:00 DCW (Rec: 04/22/24 12:18 DCW [id number]) Hip Strength Hip Manual Muscle Testing Right Flexion (L2) 2+ Poor+ Abduction 2- Poor- Adduction 2+ Poor+ External Rotation 0 Zero Internal Rotation 0 Zero Left Flexion (L2) 4- Good- Abduction 4- Good- Adduction 4- Good- External Rotation 4+ Good+ Internal Rotation 4+ Good+ Knee Strength Knee Manual Muscle Testing Right Flexion (S2) 2- Poor- Extension (L3) 3 Fair Left Flexion (S2) 5 Normal Extension (L3) 5 Normal PT-OP-Q Treatments Start: 01/31/24 14:55 Freq: Status: Active Protocol: Document 06/11/24 11:15 DCW (Rec: 06/11/24 12:00 DCW [id number]) Cardio Equipment Recumbent Elliptical (BiodAjubeo) Duration (Minutes) 5 Resistance 6 Seat Position 10 Other left UE/ ralph LE's, occ tactile cue LLE abd midline neutral Gym Equipment Shuttle Recovery Bilateral Squats Details ball between knees Resistance 50 # Shuttle Recovery Platform Stable Reps/Time Stopped due to L knee pain Therapeutic Exercises Sitting Exercises LAQ Sitting Exercise Name LAQ Side bilateral Resistance 4# Reps/Minutes X12 Neuro Re-Education Treatment Balance Activities side stepping Details hands above bar, right UE on bar only ( w and w/o towel under UE) Reps/Duration 10 feet left and right X 2 Comments CGA Tandem Details Tandem Stance Comments hands on bars 10 ft X 2 also with eyes closed, X5 Balloon volley ball Details Balloon Volley on airex Surface AirEx Comments NBOS PT-OP-T Assessment and Plan Start: 01/31/24 14:55 Freq: Status: Active Protocol: Document 06/11/24 11:15 DCW (Rec: 06/11/24 12:00 DCW [id number]) Physical Therapy Assessment Impairments Impairments Activity Tolerance,Balance, Coordination,Functional Activities,Functional Mobility ,Gait,ROM,Soft Tissue Mobility ,Strength,Tone,Transfers Goals Two Impairment Pt ambulates 262 feet during his 6MWT, for a gait speed of 0.73 ft/sec Mcfp Goal (LTG) Pt to complete a 6MWT using a LBQC to ambulate >400', demonstrating an improved gait with a more efficient use of his AD 04/20/2024 254 feet with large based quad cane with 6 min walk test scuffing feet with hip strategy to self correct X 1. LTG Duration 07/21/24 One Impairment Pt does not have an appropriate home exercise program Short Term Goal (STG) Pt to be independent and compliant with an appropriate HEP 04/22/24: Poor compliance currently STG Duration 06/20/24 Assessment Summary Assessment Pt rubbed right quad multiple times today when asked about pain. Stopped leg press due to pained expression. Pt was then able to ambulate with no apparent increase in pain, no change from baseline gait. Physical Therapy Plan Frequency and Duration Frequency of Treatment 2x/Week Plan of Care Start Date 04/22/24 Plan of Care End Date 07/21/24 Therapeutic Interventions Therapeutic Interventions Balance Training,Gait Training ,Home Exercise Program,Manual Therapy,Neuromuscular Re- education,Patient/Caregiver Education,Self-Care/Home Management,Soft Tissue Mobilization,Therapeutic Activities,Therapeutic Exercises,Vestibular Rehabilitation,Wheelchair Management Next Visit Focus/Plan Next Note Type Treatment Note Next Visit Plan Check with pre tx how pt blood sugars are and if anything we need to know for PT. POC : Assess tolerance ther ex throughout tx: resistance shuttle recovery on RLE and uneven surface activities without UE support. POC: Gait training, strengthening, activity tolerance Possibly gait training pre and post supine to and from sit.
--- NOTE | 2024-06-15 12:47 | PT.OTN ---
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 (06/15/24) Aphasia following unspecified cerebrovascular disease (06/15/24) Unsteadiness on feet (06/15/24) Other abnormalities of gait and mobility (06/15/24) Repeated falls (06/15/24) Weakness (06/15/24) Personal history of transient ischemic attack (TIA), and cerebral infarction without residual deficits (06/15/24) Physical Therapy Treatment Note PT-OP-A Visit Information Start: 01/31/24 14:55 Freq: Status: Active Protocol: Document 06/15/24 09:52 AB (Rec: 06/15/24 12:47 AB [id number]) Out-Patient Physical Therapy Visit Information Visit Information Visit Type Treatment Note Visit Start Time 10:34 Visit Stop Time 11:16 Visit Number 29 Number of VETERANS EMPLOYMENT REPRESENTATIVE Visits 2 Evaluation Information Evaluation Date 01/31/24 Precautions Precautions Pt almost entirely non-verbal PT-OP-B Current Condition Start: 01/31/24 14:55 Freq: Status: Active Protocol: Document 01/31/24 13:45 DCW (Rec: 01/31/24 17:08 DCW [id number]) Current Condition History of Current Condition Onset Date 2013 Current Complaints CVA, decrease in balance and activity tolerance History of Current Condition Pt is a 68 year old male who is 10 years s/p CVA which resulted in fairly severe right-sided hemiplegia. Pt has been seen at this facility multiple times off and on since his initial CVA to work on balance, gait, strength, activity toelrance, and functional mobility. Pt is largely non-verbal since his CVA. His attends today's evaluation reporting he has experienced a decline in function since he was last treated in PT (was last discharged 11/01/22). reports he was really struggling a few months ago, limited mobility and very limited energy, but they have recently had some changes to the treatment of his diabetes, which has helped. admits he still does not want to do a whole lot outside, and just seems to have a more difficult time moving around, appears to have greatly decreased confidence. Recently exhibiting slower gait. Also bring up possibility of getting w/c for longer outdoor activities, wondering about letter of medical necessity. PT-OP-C Subjective Start: 03/29/24 14:55 Freq: Status: Active Protocol: Document 06/15/24 09:52 AB (Rec: 06/15/24 12:47 AB [id number]) OP-PT Subjective Patient Comments Patient Comments Patient nods no to pain and falls when questioned. PT-OP-D Balance Start: 01/31/24 14:55 Freq: Status: Active Protocol: Document 04/22/24 12:00 DCW (Rec: 04/22/24 12:18 DCW [id number]) Balance Tests Functional Reach Functional Reach Test 8 inches Functional Reach Impairment Rating 20 to <40% Impaired (Score 7-8 ) Romberg Romberg 30+ eyes open, 30+ eyes closed PT-OP-E Functional Tests Start: 01/31/24 14:55 Freq: Status: Active Protocol: Document 04/22/24 12:00 DCW (Rec: 04/22/24 12:18 DCW [id number]) Functional Tests 30 Second Sit to Stand Test Score x10 repetitions Comments UE use, controlled descent Timed Up and Go (TUG) Score 40.49 Comments /c LBQC TUG Impairment Rating 100% Impaired (Score 20) PT-OP-G Mobility & Gait Start: 01/31/24 14:55 Freq: Status: Active Protocol: Document 04/22/24 12:00 DCW (Rec: 04/22/24 12:08 DCW [id number]) OP Gait Assessment Assistive Devices Assistive Device Gait Belt,Large Based Quad Cane Gait Deviations General Gait Pattern Antalgic,Ataxic,Decreased Stride Length,Decreased Feet Clearance,Flexed Trunk,Lateral Trunk Lean,Step-to Gait Factors Limiting Gait Function Factors Limiting Gait Function Decreased Activity Tolerance, Decreased Strength,Difficulty Following Directions, Incoordination,Poor Balance, Poor Safety Awareness Stair Climbing Evaluation Evaluation Level of Assist On Stairs Standby Assistance Devices Stair Climbing Assistive Devices Left Railing,Right Railing Technique/Endurance Stair Climbing Direction Ascend and Descend Stair Climbing Technique Step to Step PT-OP-M Strength Start: 01/31/24 14:55 Freq: Status: Active Protocol: Document 04/22/24 12:00 DCW (Rec: 04/22/24 12:18 DCW [id number]) Hip Strength Hip Manual Muscle Testing Right Flexion (L2) 2+ Poor+ Abduction 2- Poor- Adduction 2+ Poor+ External Rotation 0 Zero Internal Rotation 0 Zero Left Flexion (L2) 4- Good- Abduction 4- Good- Adduction 4- Good- External Rotation 4+ Good+ Internal Rotation 4+ Good+ Knee Strength Knee Manual Muscle Testing Right Flexion (S2) 2- Poor- Extension (L3) 3 Fair Left Flexion (S2) 5 Normal Extension (L3) 5 Normal PT-OP-Q Treatments Start: 01/31/24 14:55 Freq: Status: Active Protocol: Document 06/15/24 09:52 AB (Rec: 06/15/24 12:47 AB [id number]) Therapeutic Exercises Sitting Exercises seated hip abduction Side bilateral Equipment Used manual resistance Reps/Minutes 60 sec hold and X 10 without hold cues at left LE LAQ Sitting Exercise Name LAQ Resistance 3 lb initiated with 4 unable likely due to post balance ex Reps/Minutes X12 Standing Exercises resisted side stepping Standing Exercise Name CGA Side bilateral Resistance Lv 2 T-band Equipment Used rail LUE support Reps/Minutes 10 feet X 2 left and right Comments at ankles X 1 then above knees X 1 Other Exercises stagger stance sit to stand Other Exercise Name CGA, hand on armrest Reps/Minutes X10 Neuro Re-Education Treatment Balance Activities air ex Details badminton with ball bilateral UE on racquet Comments stagger stance on foam CGA Tilt board Details Tilt board Comments Lateral weight shift and AP hands above bars CGA hurdles Details Hurdles Equipment // bars with UE support and CGA Reps/Duration 10 feet X 4 PT-OP-T Assessment and Plan Start: 01/31/24 14:55 Freq: Status: Active Protocol: Document 06/15/24 09:52 AB (Rec: 06/15/24 12:47 AB [id number]) Physical Therapy Assessment Goals Two Impairment Pt ambulates 262 feet during his 6MWT, for a gait speed of 0.73 ft/sec Athlete Marketing Agent Goal (LTG) Pt to complete a 6MWT using a LBQC to ambulate >400', demonstrating an improved gait with a more efficient use of his AD 04/20/2024 254 feet with large based quad cane with 6 min walk test scuffing feet with hip strategy to self correct X 1. LTG Duration 07/21/24 One Impairment Pt does not have an appropriate home exercise program Short Term Goal (STG) Pt to be independent and compliant with an appropriate HEP 04/22/24: Poor compliance currently STG Duration 06/20/24 Assessment Summary Assessment Nods no when questioned regarding pain. Physical Therapy Plan Frequency and Duration Frequency of Treatment 2x/Week Plan of Care Start Date 04/22/24 Plan of Care End Date 07/21/24 Next Visit Focus/Plan Next Note Type Treatment Note Next Visit Plan Check with pre tx how pt blood sugars are and if anything we need to know for PT. POC : Assess tolerance ther ex throughout tx: resistance shuttle recovery on RLE and uneven surface activities without UE support. POC: Gait training, strengthening, activity tolerance
--- NOTE | 2024-06-17 11:14 | PT.OTN ---
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 (06/17/24) Aphasia following unspecified cerebrovascular disease (06/17/24) Unsteadiness on feet (06/17/24) Other abnormalities of gait and mobility (06/17/24) Repeated falls (06/17/24) Weakness (06/17/24) Personal history of transient ischemic attack (TIA), and cerebral infarction without residual deficits (06/17/24) Physical Therapy Treatment Note PT-OP-A Visit Information Start: 01/31/24 14:55 Freq: Status: Active Protocol: Document 06/17/24 10:30 DCW (Rec: 06/17/24 11:14 DCW [id number]) Out-Patient Physical Therapy Visit Information Visit Information Visit Type Treatment Note Visit Start Time 10:30 Visit Stop Time 11:15 Visit Number 30 Number of HYDRAULIC BOOM OPERATOR Visits 0 Evaluation Information Evaluation Date 01/31/24 Precautions Precautions Pt almost entirely non-verbal PT-OP-B Current Condition Start: 01/31/24 14:55 Freq: Status: Active Protocol: Document 01/31/24 13:45 DCW (Rec: 01/31/24 17:08 DCW [id number]) Current Condition History of Current Condition Onset Date 2013 Current Complaints CVA, decrease in balance and activity tolerance History of Current Condition Pt is a 68 year old male who is 10 years s/p CVA which resulted in fairly severe right-sided hemiplegia. Pt has been seen at this facility multiple times off and on since his initial CVA to work on balance, gait, strength, activity toelrance, and functional mobility. Pt is largely non-verbal since his CVA. His attends today's evaluation reporting he has experienced a decline in function since he was last treated in PT (was last discharged 11/01/22). reports he was really struggling a few months ago, limited mobility and very limited energy, but they have recently had some changes to the treatment of his diabetes, which has helped. admits he still does not want to do a whole lot outside, and just seems to have a more difficult time moving around, appears to have greatly decreased confidence. Recently exhibiting slower gait. Also bring up possibility of getting w/c for longer outdoor activities, wondering about letter of medical necessity. PT-OP-C Subjective Start: 01/31/24 14:55 Freq: Status: Active Protocol: Document 06/17/24 10:30 DCW (Rec: 06/17/24 11:14 DCW [id number]) OP-PT Subjective Patient Comments Patient Comments Indicates he is doing well, denies recent falls PT-OP-D Balance Start: 01/31/24 14:55 Freq: Status: Active Protocol: Document 04/22/24 12:00 DCW (Rec: 04/22/24 12:18 DCW [id number]) Balance Tests Functional Reach Functional Reach Test 8 inches Functional Reach Impairment Rating 20 to <40% Impaired (Score 7-8 ) Romberg Romberg 30+ eyes open, 30+ eyes closed PT-OP-E Functional Tests Start: 01/31/24 14:55 Freq: Status: Active Protocol: Document 04/22/24 12:00 DCW (Rec: 04/22/24 12:18 DCW [id number]) Functional Tests 30 Second Sit to Stand Test Score x10 repetitions Comments UE use, controlled descent Timed Up and Go (TUG) Score 40.49 Comments /c LBQC TUG Impairment Rating 100% Impaired (Score 20) PT-OP-G Mobility & Gait Start: 01/31/24 14:55 Freq: Status: Active Protocol: Document 04/22/24 12:00 DCW (Rec: 04/22/24 12:08 DCW [id number]) OP Gait Assessment Assistive Devices Assistive Device Gait Belt,Large Based Quad Cane Gait Deviations General Gait Pattern Antalgic,Ataxic,Decreased Stride Length,Decreased Feet Clearance,Flexed Trunk,Lateral Trunk Lean,Step-to Gait Factors Limiting Gait Function Factors Limiting Gait Function Decreased Activity Tolerance, Decreased Strength,Difficulty Following Directions, Incoordination,Poor Balance, Poor Safety Awareness Stair Climbing Evaluation Evaluation Level of Assist On Stairs Standby Assistance Devices Stair Climbing Assistive Devices Left Railing,Right Railing Technique/Endurance Stair Climbing Direction Ascend and Descend Stair Climbing Technique Step to Step PT-OP-M Strength Start: 01/31/24 14:55 Freq: Status: Active Protocol: Document 04/22/24 12:00 DCW (Rec: 04/22/24 12:18 DCW [id number]) Hip Strength Hip Manual Muscle Testing Right Flexion (L2) 2+ Poor+ Abduction 2- Poor- Adduction 2+ Poor+ External Rotation 0 Zero Internal Rotation 0 Zero Left Flexion (L2) 4- Good- Abduction 4- Good- Adduction 4- Good- External Rotation 4+ Good+ Internal Rotation 4+ Good+ Knee Strength Knee Manual Muscle Testing Right Flexion (S2) 2- Poor- Extension (L3) 3 Fair Left Flexion (S2) 5 Normal Extension (L3) 5 Normal PT-OP-Q Treatments Start: 01/31/24 14:55 Freq: Status: Active Protocol: Document 06/17/24 10:30 DCW (Rec: 06/17/24 11:14 DCW [id number]) Cardio Equipment Recumbent Elliptical (Biodex) Duration (Minutes) 5 Resistance 6 Seat Position 10 Other left UE/ ralph LE's, occ tactile cue LLE abd midline neutral Gym Equipment Shuttle Balance red clips Comments Staggered Stance CGA to minimal assist, head turns and verbal cues for visual scanning Therapeutic Exercises Sitting Exercises LAQ Sitting Exercise Name LAQ Side bilateral Resistance 4# Reps/Minutes X12 Neuro Re-Education Treatment Balance Activities side stepping Details hands above bar Reps/Duration 10 feet left and right X 2 Comments 4# Ming Tandem Details Tandem Stance Comments hands on bars 10 ft X 2 also with eyes closed, X5 step up taps Details Toe-taps Equipment 6 step, 4# hurdles Details Hurdles Equipment // bars with UE support and CGA Reps/Duration 10 feet X 4 PT-OP-T Assessment and Plan Start: 01/31/24 14:55 Freq: Status: Active Protocol: Document 06/17/24 10:30 DCW (Rec: 06/17/24 11:14 DCW [id number]) Physical Therapy Assessment Impairments Impairments Activity Tolerance,Balance, Coordination,Functional Activities,Functional Mobility ,Gait,ROM,Soft Tissue Mobility ,Strength,Tone,Transfers Goals Two Impairment Pt ambulates 262 feet during his 6MWT, for a gait speed of 0.73 ft/sec Hat Designer Goal (LTG) Pt to complete a 6MWT using a LBQC to ambulate >400', demonstrating an improved gait with a more efficient use of his AD 04/20/2024 254 feet with large based quad cane with 6 min walk test scuffing feet with hip strategy to self correct X 1. LTG Duration 07/21/24 One Impairment Pt does not have an appropriate home exercise program Short Term Goal (STG) Pt to be independent and compliant with an appropriate HEP 04/22/24: Poor compliance currently STG Duration 06/20/24 Assessment Summary Assessment Pt tolerated activity well today, showed good stability with balloon volley, even on AirEx. Still questionable how much home activity pt is willing to participate in. Physical Therapy Plan Frequency and Duration Frequency of Treatment 2x/Week Plan of Care Start Date 04/22/24 Plan of Care End Date 07/21/24 Therapeutic Interventions Therapeutic Interventions Balance Training,Gait Training ,Home Exercise Program,Manual Therapy,Neuromuscular Re- education,Patient/Caregiver Education,Self-Care/Home Management,Soft Tissue Mobilization,Therapeutic Activities,Therapeutic Exercises,Vestibular Rehabilitation,Wheelchair Management Next Visit Focus/Plan Next Note Type Treatment Note Next Visit Plan Check with pre tx how pt blood sugars are and if anything we need to know for PT. POC : Assess tolerance ther ex throughout tx: resistance shuttle recovery on RLE and uneven surface activities without UE support. POC: Gait training, strengthening, activity tolerance Possibly gait training pre and post supine to and from sit.
--- NOTE | 2024-06-23 13:34 | PT.OTN ---
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 (06/23/24) Aphasia following unspecified cerebrovascular disease (06/23/24) Unsteadiness on feet (06/23/24) Other abnormalities of gait and mobility (06/23/24) Repeated falls (06/23/24) Weakness (06/23/24) Personal history of transient ischemic attack (TIA), and cerebral infarction without residual deficits (06/23/24) Physical Therapy Treatment Note PT-OP-A Visit Information Start: 01/31/24 14:55 Freq: Status: Active Protocol: Document 06/23/24 10:31 AB (Rec: 06/23/24 13:34 AB [id number]) Out-Patient Physical Therapy Visit Information Visit Information Visit Type Treatment Note Visit Start Time 10:33 Visit Stop Time 11:15 Visit Number 31 Number of SEQUENCING MACHINE OPERATOR Visits 1 Evaluation Information Evaluation Date 01/31/24 Precautions Precautions Pt almost entirely non-verbal PT-OP-B Current Condition Start: 01/31/24 14:55 Freq: Status: Active Protocol: Document 01/31/24 13:45 DCW (Rec: 01/31/24 17:08 DCW [id number]) Current Condition History of Current Condition Onset Date 2013 Current Complaints CVA, decrease in balance and activity tolerance History of Current Condition Pt is a 68 year old male who is 10 years s/p CVA which resulted in fairly severe right-sided hemiplegia. Pt has been seen at this facility multiple times off and on since his initial CVA to work on balance, gait, strength, activity toelrance, and functional mobility. Pt is largely non-verbal since his CVA. His attends today's evaluation reporting he has experienced a decline in function since he was last treated in PT (was last discharged 11/01/22). reports he was really struggling a few months ago, limited mobility and very limited energy, but they have recently had some changes to the treatment of his diabetes, which has helped. admits he still does not want to do a whole lot outside, and just seems to have a more difficult time moving around, appears to have greatly decreased confidence. Recently exhibiting slower gait. Also bring up possibility of getting w/c for longer outdoor activities, wondering about letter of medical necessity. PT-OP-C Subjective Start: 03/29/24 14:55 Freq: Status: Active Protocol: Document 06/23/24 10:31 AB (Rec: 06/23/24 13:34 AB [id number]) OP-PT Subjective Patient Comments Patient Comments Patient nods no when questioned regarding falls since previous session and if having any pain. PT-OP-D Balance Start: 01/31/24 14:55 Freq: Status: Active Protocol: Document 04/22/24 12:00 DCW (Rec: 04/22/24 12:18 DCW [id number]) Balance Tests Functional Reach Functional Reach Test 8 inches Functional Reach Impairment Rating 20 to <40% Impaired (Score 7-8 ) Romberg Romberg 30+ eyes open, 30+ eyes closed PT-OP-E Functional Tests Start: 01/31/24 14:55 Freq: Status: Active Protocol: Document 04/22/24 12:00 DCW (Rec: 04/22/24 12:18 DCW [id number]) Functional Tests 30 Second Sit to Stand Test Score x10 repetitions Comments UE use, controlled descent Timed Up and Go (TUG) Score 40.49 Comments /c LBQC TUG Impairment Rating 100% Impaired (Score 20) PT-OP-G Mobility & Gait Start: 01/31/24 14:55 Freq: Status: Active Protocol: Document 04/22/24 12:00 DCW (Rec: 04/22/24 12:08 DCW [id number]) OP Gait Assessment Assistive Devices Assistive Device Gait Belt,Large Based Quad Cane Gait Deviations General Gait Pattern Antalgic,Ataxic,Decreased Stride Length,Decreased Feet Clearance,Flexed Trunk,Lateral Trunk Lean,Step-to Gait Factors Limiting Gait Function Factors Limiting Gait Function Decreased Activity Tolerance, Decreased Strength,Difficulty Following Directions, Incoordination,Poor Balance, Poor Safety Awareness Stair Climbing Evaluation Evaluation Level of Assist On Stairs Standby Assistance Devices Stair Climbing Assistive Devices Left Railing,Right Railing Technique/Endurance Stair Climbing Direction Ascend and Descend Stair Climbing Technique Step to Step PT-OP-M Strength Start: 01/31/24 14:55 Freq: Status: Active Protocol: Document 04/22/24 12:00 DCW (Rec: 04/22/24 12:18 DCW [id number]) Hip Strength Hip Manual Muscle Testing Right Flexion (L2) 2+ Poor+ Abduction 2- Poor- Adduction 2+ Poor+ External Rotation 0 Zero Internal Rotation 0 Zero Left Flexion (L2) 4- Good- Abduction 4- Good- Adduction 4- Good- External Rotation 4+ Good+ Internal Rotation 4+ Good+ Knee Strength Knee Manual Muscle Testing Right Flexion (S2) 2- Poor- Extension (L3) 3 Fair Left Flexion (S2) 5 Normal Extension (L3) 5 Normal PT-OP-Q Treatments Start: 01/31/24 14:55 Freq: Status: Active Protocol: Document 06/23/24 10:31 AB (Rec: 06/23/24 13:34 AB [id number]) Therapeutic Exercises Sitting Exercises seated hip abduction Side bilateral Equipment Used manual resistance Reps/Minutes 60 sec hold and X 10 without hold cues at left LE LAQ Resistance 4# left 2 lb right Reps/Minutes X12 Comments MS shaking right quad Neuro Re-Education Treatment Balance Activities air ex Details badminton with ball bilateral UE on racquet Comments narrow NATE CGA Tilt board Details Tilt board Comments Lateral weight shift and AP hands above bars CGA uneven squat ball transfer Details GAit belt, cross body squat ball transfer bwtn cones Surface mat, 5 X and X 6 sets cones/ balls Equipment PRN QC available front if needed Comments CGA right LE fwd and left LE slightly fwd step up taps Details Toe-taps Equipment 2 inch step Comments facilitation at right pelvis and right knee guarded for left LE step up, VC for trials of hand above bar, increased difficulty with hand above bar for Left LE step up. hurdles Details Hurdles Equipment // bars with UE support and CGA Reps/Duration 10 feet X 4 PT-OP-T Assessment and Plan Start: 01/31/24 14:55 Freq: Status: Active Protocol: Document 06/23/24 10:31 AB (Rec: 06/23/24 13:34 AB [id number]) Physical Therapy Assessment Goals Two Impairment Pt ambulates 262 feet during his 6MWT, for a gait speed of 0.73 ft/sec Exceptional Student Education Aide Goal (LTG) Pt to complete a 6MWT using a LBQC to ambulate >400', demonstrating an improved gait with a more efficient use of his AD 04/20/2024 254 feet with large based quad cane with 6 min walk test scuffing feet with hip strategy to self correct X 1. LTG Duration 07/21/24 One Impairment Pt does not have an appropriate home exercise program Short Term Goal (STG) Pt to be independent and compliant with an appropriate HEP 04/22/24: Poor compliance currently STG Duration 06/20/24 Assessment Summary Assessment Patient with good ned for squats to reach balls on cones . Sukh demonstrates carryover for squat to reach balls into hurdles as seen by squatting to realign marlen he moves with foot. Physical Therapy Plan Frequency and Duration Frequency of Treatment 2x/Week Plan of Care Start Date 04/22/24 Plan of Care End Date 07/21/24 Next Visit Focus/Plan Next Note Type Treatment Note Next Visit Plan Check with pre tx how pt blood sugars are and if anything we need to know for PT. POC : Assess tolerance ther ex throughout tx: resistance shuttle recovery on RLE and uneven surface activities without UE support. POC: Gait training, strengthening, activity tolerance
--- NOTE | 2024-06-25 11:13 | PT.OTN ---
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 (06/25/24) Aphasia following unspecified cerebrovascular disease (06/25/24) Unsteadiness on feet (06/25/24) Other abnormalities of gait and mobility (06/25/24) Repeated falls (06/25/24) Weakness (06/25/24) Personal history of transient ischemic attack (TIA), and cerebral infarction without residual deficits (06/25/24) Physical Therapy Treatment Note PT-OP-A Visit Information Start: 01/31/24 14:55 Freq: Status: Active Protocol: Document 06/25/24 10:30 DCW (Rec: 06/25/24 11:13 DCW [id number]) Out-Patient Physical Therapy Visit Information Visit Information Visit Type Treatment Note Visit Start Time 10:30 Visit Stop Time 11:15 Visit Number 32 Number of BRANCH LEAD Visits 0 Evaluation Information Evaluation Date 01/31/24 Precautions Precautions Pt almost entirely non-verbal PT-OP-B Current Condition Start: 01/31/24 14:55 Freq: Status: Active Protocol: Document 01/31/24 13:45 DCW (Rec: 01/31/24 17:08 DCW [id number]) Current Condition History of Current Condition Onset Date 2013 Current Complaints CVA, decrease in balance and activity tolerance History of Current Condition Pt is a 68 year old male who is 10 years s/p CVA which resulted in fairly severe right-sided hemiplegia. Pt has been seen at this facility multiple times off and on since his initial CVA to work on balance, gait, strength, activity toelrance, and functional mobility. Pt is largely non-verbal since his CVA. His attends today's evaluation reporting he has experienced a decline in function since he was last treated in PT (was last discharged 11/01/22). reports he was really struggling a few months ago, limited mobility and very limited energy, but they have recently had some changes to the treatment of his diabetes, which has helped. admits he still does not want to do a whole lot outside, and just seems to have a more difficult time moving around, appears to have greatly decreased confidence. Recently exhibiting slower gait. Also bring up possibility of getting w/c for longer outdoor activities, wondering about letter of medical necessity. PT-OP-C Subjective Start: 01/31/24 14:55 Freq: Status: Active Protocol: Document 06/25/24 10:30 DCW (Rec: 06/25/24 11:13 DCW [id number]) OP-PT Subjective Patient Comments Patient Comments Pt nods that he is ready to get to work. PT-OP-D Balance Start: 01/31/24 14:55 Freq: Status: Active Protocol: Document 04/22/24 12:00 DCW (Rec: 04/22/24 12:18 DCW [id number]) Balance Tests Functional Reach Functional Reach Test 8 inches Functional Reach Impairment Rating 20 to <40% Impaired (Score 7-8 ) Romberg Romberg 30+ eyes open, 30+ eyes closed PT-OP-E Functional Tests Start: 01/31/24 14:55 Freq: Status: Active Protocol: Document 04/22/24 12:00 DCW (Rec: 04/22/24 12:18 DCW [id number]) Functional Tests 30 Second Sit to Stand Test Score x10 repetitions Comments UE use, controlled descent Timed Up and Go (TUG) Score 40.49 Comments /c LBQC TUG Impairment Rating 100% Impaired (Score 20) PT-OP-G Mobility & Gait Start: 01/31/24 14:55 Freq: Status: Active Protocol: Document 04/22/24 12:00 DCW (Rec: 04/22/24 12:08 DCW [id number]) OP Gait Assessment Assistive Devices Assistive Device Gait Belt,Large Based Quad Cane Gait Deviations General Gait Pattern Antalgic,Ataxic,Decreased Stride Length,Decreased Feet Clearance,Flexed Trunk,Lateral Trunk Lean,Step-to Gait Factors Limiting Gait Function Factors Limiting Gait Function Decreased Activity Tolerance, Decreased Strength,Difficulty Following Directions, Incoordination,Poor Balance, Poor Safety Awareness Stair Climbing Evaluation Evaluation Level of Assist On Stairs Standby Assistance Devices Stair Climbing Assistive Devices Left Railing,Right Railing Technique/Endurance Stair Climbing Direction Ascend and Descend Stair Climbing Technique Step to Step PT-OP-M Strength Start: 01/31/24 14:55 Freq: Status: Active Protocol: Document 04/22/24 12:00 DCW (Rec: 04/22/24 12:18 DCW [id number]) Hip Strength Hip Manual Muscle Testing Right Flexion (L2) 2+ Poor+ Abduction 2- Poor- Adduction 2+ Poor+ External Rotation 0 Zero Internal Rotation 0 Zero Left Flexion (L2) 4- Good- Abduction 4- Good- Adduction 4- Good- External Rotation 4+ Good+ Internal Rotation 4+ Good+ Knee Strength Knee Manual Muscle Testing Right Flexion (S2) 2- Poor- Extension (L3) 3 Fair Left Flexion (S2) 5 Normal Extension (L3) 5 Normal PT-OP-Q Treatments Start: 01/31/24 14:55 Freq: Status: Active Protocol: Document 06/25/24 10:30 DCW (Rec: 06/25/24 11:13 DCW [id number]) Cardio Equipment Recumbent Elliptical (Biodex) Duration (Minutes) 5 Resistance 6 Seat Position 10 Other left UE/ r[employer] Equipment Shuttle Balance red clips Comments Staggered Stance CGA to minimal assist, head turns and verbal cues for visual scanning Neuro Re-Education Treatment Balance Activities Tandem Details Tandem Stance Equipment // bars Balloon volley ball Details Balloon Volley on airex Surface AirEx Comments NBOS hurdles Details Hurdles Equipment // bars with UE support and CGA Reps/Duration 10 feet X 4 PT-OP-T Assessment and Plan Start: 01/31/24 14:55 Freq: Status: Active Protocol: Document 06/25/24 10:30 DCW (Rec: 06/25/24 11:13 DCW [id number]) Physical Therapy Assessment Impairments Impairments Activity Tolerance,Balance, Coordination,Functional Activities,Functional Mobility ,Gait,ROM,Soft Tissue Mobility ,Strength,Tone,Transfers Goals Two Impairment Pt ambulates 262 feet during his 6MWT, for a gait speed of 0.73 ft/sec Fdc Goal (LTG) Pt to complete a 6MWT using a LBQC to ambulate >400', demonstrating an improved gait with a more efficient use of his AD 04/20/2024 254 feet with large based quad cane with 6 min walk test scuffing feet with hip strategy to self correct X 1. LTG Duration 07/21/24 One Impairment Pt does not have an appropriate home exercise program Short Term Goal (STG) Pt to be independent and compliant with an appropriate HEP 04/22/24: Poor compliance currently STG Duration 06/20/24 Assessment Summary Assessment Pt more fatigued today, required increased rest breaks , appeared to have less energy overall. not present during treatment to check on blood sugars. Pt is showing some mild improvement with balance on AirEx and standing in tandem Physical Therapy Plan Frequency and Duration Frequency of Treatment 2x/Week Plan of Care Start Date 04/22/24 Plan of Care End Date 07/21/24 Therapeutic Interventions Therapeutic Interventions Balance Training,Gait Training ,Home Exercise Program,Manual Therapy,Neuromuscular Re- education,Patient/Caregiver Education,Self-Care/Home Management,Soft Tissue Mobilization,Therapeutic Activities,Therapeutic Exercises,Vestibular Rehabilitation,Wheelchair Management Next Visit Focus/Plan Next Note Type Treatment Note Next Visit Plan Check with pre tx how pt blood sugars are and if anything we need to know for PT. POC : Assess tolerance ther ex throughout tx: resistance shuttle recovery on RLE and uneven surface activities without UE support. POC: Gait training, strengthening, activity tolerance Possibly gait training pre and post supine to and from sit.
--- NOTE | 2024-06-29 16:18 | PT.OTN ---
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 (06/29/24) Aphasia following unspecified cerebrovascular disease (06/29/24) Unsteadiness on feet (06/29/24) Other abnormalities of gait and mobility (06/29/24) Repeated falls (06/29/24) Weakness (06/29/24) Personal history of transient ischemic attack (TIA), and cerebral infarction without residual deficits (06/29/24) Physical Therapy Treatment Note PT-OP-A Visit Information Start: 01/31/24 14:55 Freq: Status: Active Protocol: Document 06/29/24 14:36 AB (Rec: 06/29/24 16:17 AB [id number]) Out-Patient Physical Therapy Visit Information Visit Information Visit Type Treatment Note Visit Start Time 14:37 Visit Stop Time 15:18 Visit Number 33 Number of JOB DEVELOPER FOR DEAF ADULTS Visits 1 PT-OP-B Current Condition Start: 01/31/24 14:55 Freq: Status: Active Protocol: Document 01/31/24 13:45 DCW (Rec: 01/31/24 17:08 DCW [id number]) Current Condition History of Current Condition Onset Date 2013 Current Complaints CVA, decrease in balance and activity tolerance History of Current Condition Pt is a 68 year old male who is 10 years s/p CVA which resulted in fairly severe right-sided hemiplegia. Pt has been seen at this facility multiple times off and on since his initial CVA to work on balance, gait, strength, activity toelrance, and functional mobility. Pt is largely non-verbal since his CVA. His attends today's evaluation reporting he has experienced a decline in function since he was last treated in PT (was last discharged 11/01/22). reports he was really struggling a few months ago, limited mobility and very limited energy, but they have recently had some changes to the treatment of his diabetes, which has helped. admits he still does not want to do a whole lot outside, and just seems to have a more difficult time moving around, appears to have greatly decreased confidence. Recently exhibiting slower gait. Also bring up possibility of getting w/c for longer outdoor activities, wondering about letter of medical necessity. PT-OP-C Subjective Start: 01/31/24 14:55 Freq: Status: Active Protocol: Document 06/29/24 14:36 AB (Rec: 06/29/24 16:17 AB [id number]) OP-PT Subjective Patient Comments Patient Comments Patient nods no when questioned regarding pain. PT-OP-D Balance Start: 01/31/24 14:55 Freq: Status: Active Protocol: Document 04/22/24 12:00 DCW (Rec: 04/22/24 12:18 DCW [id number]) Balance Tests Functional Reach Functional Reach Test 8 inches Functional Reach Impairment Rating 20 to <40% Impaired (Score 7-8 ) Romberg Romberg 30+ eyes open, 30+ eyes closed PT-OP-E Functional Tests Start: 01/31/24 14:55 Freq: Status: Active Protocol: Document 04/22/24 12:00 DCW (Rec: 04/22/24 12:18 DCW [id number]) Functional Tests 30 Second Sit to Stand Test Score x10 repetitions Comments UE use, controlled descent Timed Up and Go (TUG) Score 40.49 Comments /c LBQC TUG Impairment Rating 100% Impaired (Score 20) PT-OP-G Mobility & Gait Start: 01/31/24 14:55 Freq: Status: Active Protocol: Document 04/22/24 12:00 DCW (Rec: 04/22/24 12:08 DCW [id number]) OP Gait Assessment Assistive Devices Assistive Device Gait Belt,Large Based Quad Cane Gait Deviations General Gait Pattern Antalgic,Ataxic,Decreased Stride Length,Decreased Feet Clearance,Flexed Trunk,Lateral Trunk Lean,Step-to Gait Factors Limiting Gait Function Factors Limiting Gait Function Decreased Activity Tolerance, Decreased Strength,Difficulty Following Directions, Incoordination,Poor Balance, Poor Safety Awareness Stair Climbing Evaluation Evaluation Level of Assist On Stairs Standby Assistance Devices Stair Climbing Assistive Devices Left Railing,Right Railing Technique/Endurance Stair Climbing Direction Ascend and Descend Stair Climbing Technique Step to Step PT-OP-M Strength Start: 01/31/24 14:55 Freq: Status: Active Protocol: Document 04/22/24 12:00 DCW (Rec: 04/22/24 12:18 DCW [id number]) Hip Strength Hip Manual Muscle Testing Right Flexion (L2) 2+ Poor+ Abduction 2- Poor- Adduction 2+ Poor+ External Rotation 0 Zero Internal Rotation 0 Zero Left Flexion (L2) 4- Good- Abduction 4- Good- Adduction 4- Good- External Rotation 4+ Good+ Internal Rotation 4+ Good+ Knee Strength Knee Manual Muscle Testing Right Flexion (S2) 2- Poor- Extension (L3) 3 Fair Left Flexion (S2) 5 Normal Extension (L3) 5 Normal PT-OP-Q Treatments Start: 01/31/24 14:55 Freq: Status: Active Protocol: Document 06/29/24 14:36 AB (Rec: 06/29/24 16:17 AB [id number]) Gym Equipment Shuttle Recovery Unilateral Squats Resistance 25 Teal Reps/Time X15 each LE Bilateral Squats Details ball between knees Resistance 50 # Shuttle Recovery Platform Stable Reps/Time X16 Shuttle Balance red clips Comments Staggered Stance CGA to minimal assist, head turns and verbal cues for visual scanning Therapeutic Exercises Sitting Exercises seated hip abduction Side bilateral Equipment Used manual resistance Reps/Minutes 60 sec hold and X 10 without hold cues at left LE Other Exercises stagger stance sit to stand Other Exercise Name CGA, hand on armrest Reps/Minutes X8 Comments ball between knees Neuro Re-Education Treatment Balance Activities side stepping Details hands above bar Reps/Duration 10 feet left and right X 3 Comments CGA Tilt board Details Tilt board Comments Lateral weight shift and AP hands above bars CGA uneven squat ball transfer Details GAit belt, cross body squat ball transfer bwtn cones Surface ball transfer between bals on cones Equipment PRN QC available front if needed Reps/Duration X8 Comments CGA step up taps Details Toe-taps Equipment 2 inch step Reps/Duration X12 Comments CGA right knee blocked with CG foam Details EO/EC Surface AirEx Comments Romberg and stagger position CGA PT-OP-T Assessment and Plan Start: 01/31/24 14:55 Freq: Status: Active Protocol: Document 06/29/24 14:36 AB (Rec: 06/29/24 16:17 AB [id number]) Physical Therapy Assessment Goals Two Impairment Pt ambulates 262 feet during his 6MWT, for a gait speed of 0.73 ft/sec Integrated Specialist Goal (LTG) Pt to complete a 6MWT using a LBQC to ambulate >400', demonstrating an improved gait with a more efficient use of his AD 04/20/2024 254 feet with large based quad cane with 6 min walk test scuffing feet with hip strategy to self correct X 1. LTG Duration 07/21/24 One Impairment Pt does not have an appropriate home exercise program Short Term Goal (STG) Pt to be independent and compliant with an appropriate HEP 04/22/24: Poor compliance currently STG Duration 06/20/24 Assessment Summary Assessment Sukh reports having no increased pain with or post Shuggle recovery and sit to trading assistant stagger stance, questioned specifically regarding knee pain. Physical Therapy Plan Frequency and Duration Frequency of Treatment 2x/Week Plan of Care Start Date 04/22/24 Plan of Care End Date 07/21/24 Next Visit Focus/Plan Next Note Type Progress Note Next Visit Plan Check with pre tx how pt blood sugars are and if anything we need to know for PT. POC : Assess tolerance ther ex throughout tx: resistance shuttle recovery on RLE and uneven surface activities without UE support. POC: Gait training, strengthening, activity tolerance
--- NOTE | 2024-07-01 15:55 | PT.OTN ---
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 (07/01/24) Aphasia following unspecified cerebrovascular disease (07/01/24) Unsteadiness on feet (07/01/24) Other abnormalities of gait and mobility (07/01/24) Repeated falls (07/01/24) Weakness (07/01/24) Personal history of transient ischemic attack (TIA), and cerebral infarction without residual deficits (07/01/24) Physical Therapy Treatment Note PT-OP-A Visit Information Start: 01/31/24 14:55 Freq: Status: Active Protocol: Document 07/01/24 15:15 DCW (Rec: 07/01/24 15:55 DCW [id number]) Out-Patient Physical Therapy Visit Information Visit Information Visit Type Treatment Note Visit Start Time 15:15 Visit Stop Time 16:00 Visit Number 34 Number of DRAFTING SUPERVISOR Visits 0 Evaluation Information Evaluation Date 01/31/24 Precautions Precautions Pt almost entirely non-verbal PT-OP-B Current Condition Start: 01/31/24 14:55 Freq: Status: Active Protocol: Document 01/31/24 13:45 DCW (Rec: 01/31/24 17:08 DCW [id number]) Current Condition History of Current Condition Onset Date 2013 Current Complaints CVA, decrease in balance and activity tolerance History of Current Condition Pt is a 68 year old male who is 10 years s/p CVA which resulted in fairly severe right-sided hemiplegia. Pt has been seen at this facility multiple times off and on since his initial CVA to work on balance, gait, strength, activity toelrance, and functional mobility. Pt is largely non-verbal since his CVA. His attends today's evaluation reporting he has experienced a decline in function since he was last treated in PT (was last discharged 11/01/22). reports he was really struggling a few months ago, limited mobility and very limited energy, but they have recently had some changes to the treatment of his diabetes, which has helped. admits he still does not want to do a whole lot outside, and just seems to have a more difficult time moving around, appears to have greatly decreased confidence. Recently exhibiting slower gait. Also bring up possibility of getting w/c for longer outdoor activities, wondering about letter of medical necessity. PT-OP-C Subjective Start: 01/31/24 14:55 Freq: Status: Active Protocol: Document 07/01/24 15:15 DCW (Rec: 07/01/24 15:55 DCW [id number]) OP-PT Subjective Patient Comments Patient Comments Pt indicates that he is not having pain today, and no recent falls. PT-OP-D Balance Start: 01/31/24 14:55 Freq: Status: Active Protocol: Document 04/22/24 12:00 DCW (Rec: 04/22/24 12:18 DCW [id number]) Balance Tests Functional Reach Functional Reach Test 8 inches Functional Reach Impairment Rating 20 to <40% Impaired (Score 7-8 ) Romberg Romberg 30+ eyes open, 30+ eyes closed PT-OP-E Functional Tests Start: 01/31/24 14:55 Freq: Status: Active Protocol: Document 04/22/24 12:00 DCW (Rec: 04/22/24 12:18 DCW [id number]) Functional Tests 30 Second Sit to Stand Test Score x10 repetitions Comments UE use, controlled descent Timed Up and Go (TUG) Score 40.49 Comments /c LBQC TUG Impairment Rating 100% Impaired (Score 20) PT-OP-G Mobility & Gait Start: 01/31/24 14:55 Freq: Status: Active Protocol: Document 04/22/24 12:00 DCW (Rec: 04/22/24 12:08 DCW [id number]) OP Gait Assessment Assistive Devices Assistive Device Gait Belt,Large Based Quad Cane Gait Deviations General Gait Pattern Antalgic,Ataxic,Decreased Stride Length,Decreased Feet Clearance,Flexed Trunk,Lateral Trunk Lean,Step-to Gait Factors Limiting Gait Function Factors Limiting Gait Function Decreased Activity Tolerance, Decreased Strength,Difficulty Following Directions, Incoordination,Poor Balance, Poor Safety Awareness Stair Climbing Evaluation Evaluation Level of Assist On Stairs Standby Assistance Devices Stair Climbing Assistive Devices Left Railing,Right Railing Technique/Endurance Stair Climbing Direction Ascend and Descend Stair Climbing Technique Step to Step PT-OP-M Strength Start: 01/31/24 14:55 Freq: Status: Active Protocol: Document 04/22/24 12:00 DCW (Rec: 04/22/24 12:18 DCW [id number]) Hip Strength Hip Manual Muscle Testing Right Flexion (L2) 2+ Poor+ Abduction 2- Poor- Adduction 2+ Poor+ External Rotation 0 Zero Internal Rotation 0 Zero Left Flexion (L2) 4- Good- Abduction 4- Good- Adduction 4- Good- External Rotation 4+ Good+ Internal Rotation 4+ Good+ Knee Strength Knee Manual Muscle Testing Right Flexion (S2) 2- Poor- Extension (L3) 3 Fair Left Flexion (S2) 5 Normal Extension (L3) 5 Normal PT-OP-Q Treatments Start: 01/31/24 14:55 Freq: Status: Active Protocol: Document 07/01/24 15:15 DCW (Rec: 07/01/24 15:55 DCW [id number]) Cardio Equipment Recumbent Elliptical (Splore) Duration (Minutes) 5 Resistance 6 Seat Position 10 Other left UE/ r[employer] Equipment Shuttle Recovery Bilateral Squats Details ball between knees Resistance 50# Shuttle Recovery Platform Stable Reps/Time stopped d/t kneepain Shuttle Balance red clips Comments Staggered Stance CGA to minimal assist, head turns and verbal cues for visual scanning Therapeutic Exercises Supine Exercises Clamshells Supine Exercise Name Supine Clamshells Side bilateral Resistance Lv 1 Reps/Minutes x10 Bridging Supine Exercise Name Bridging Reps/Minutes x10 LTR Supine Exercise Name LTR Side bilateral Resistance T-ball SAQ Supine Exercise Name SAQ Side right Resistance 4# Reps/Minutes x15 SLR Supine Exercise Name SLR Side right Reps/Minutes x8 PT-OP-T Assessment and Plan Start: 01/31/24 14:55 Freq: Status: Active Protocol: Document 07/01/24 15:15 DCW (Rec: 07/01/24 15:55 DCW [id number]) Physical Therapy Assessment Impairments Impairments Activity Tolerance,Balance, Coordination,Functional Activities,Functional Mobility ,Gait,ROM,Soft Tissue Mobility ,Strength,Tone,Transfers Goals Two Impairment Pt ambulates 262 feet during his 6MWT, for a gait speed of 0.73 ft/sec Alf Goal (LTG) Pt to complete a 6MWT using a LBQC to ambulate >400', demonstrating an improved gait with a more efficient use of his AD 04/20/2024 254 feet with large based quad cane with 6 min walk test scuffing feet with hip strategy to self correct X 1. LTG Duration 07/21/24 One Impairment Pt does not have an appropriate home exercise program Short Term Goal (STG) Pt to be independent and compliant with an appropriate HEP 04/22/24: Poor compliance currently STG Duration 06/20/24 Assessment Summary Assessment Good work today with supine exercises, pt showing improvement with quad strength , able to perform SLR with minimal extension lag, did well with 4# SAQ Physical Therapy Plan Frequency and Duration Frequency of Treatment 2x/Week Plan of Care Start Date 04/22/24 Plan of Care End Date 07/21/24 Therapeutic Interventions Therapeutic Interventions Balance Training,Gait Training ,Home Exercise Program,Manual Therapy,Neuromuscular Re- education,Patient/Caregiver Education,Self-Care/Home Management,Soft Tissue Mobilization,Therapeutic Activities,Therapeutic Exercises,Vestibular Rehabilitation,Wheelchair Management Next Visit Focus/Plan Next Note Type Progress Note Next Visit Plan Check with pre tx how pt blood sugars are and if anything we need to know for PT. POC : Assess tolerance ther ex throughout tx: resistance shuttle recovery on RLE and uneven surface activities without UE support. POC: Gait training, strengthening, activity tolerance
--- NOTE | 2024-07-08 16:09 | PT.OTN ---
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 (07/08/24) Aphasia following unspecified cerebrovascular disease (07/08/24) Unsteadiness on feet (07/08/24) Other abnormalities of gait and mobility (07/08/24) Repeated falls (07/08/24) Weakness (07/08/24) Personal history of transient ischemic attack (TIA), and cerebral infarction without residual deficits (07/08/24) Physical Therapy Treatment Note PT-OP-A Visit Information Start: 01/31/24 14:55 Freq: Status: Active Protocol: Document 07/08/24 14:34 AB (Rec: 07/08/24 16:08 AB [id number]) Out-Patient Physical Therapy Visit Information Visit Information Visit Type Treatment Note Visit Start Time 15:20 Visit Stop Time 16:03 Visit Number 35 Number of BLENDER/BRAZE APPLICATOR Visits 1 Evaluation Information Evaluation Date 01/31/24 Precautions Precautions Pt almost entirely non-verbal PT-OP-B Current Condition Start: 01/31/24 14:55 Freq: Status: Active Protocol: Document 01/31/24 13:45 DCW (Rec: 01/31/24 17:08 DCW [id number]) Current Condition History of Current Condition Onset Date 2013 Current Complaints CVA, decrease in balance and activity tolerance History of Current Condition Pt is a 68 year old male who is 10 years s/p CVA which resulted in fairly severe right-sided hemiplegia. Pt has been seen at this facility multiple times off and on since his initial CVA to work on balance, gait, strength, activity toelrance, and functional mobility. Pt is largely non-verbal since his CVA. His attends today's evaluation reporting he has experienced a decline in function since he was last treated in PT (was last discharged 11/01/22). reports he was really struggling a few months ago, limited mobility and very limited energy, but they have recently had some changes to the treatment of his diabetes, which has helped. admits he still does not want to do a whole lot outside, and just seems to have a more difficult time moving around, appears to have greatly decreased confidence. Recently exhibiting slower gait. Also bring up possibility of getting w/c for longer outdoor activities, wondering about letter of medical necessity. PT-OP-C Subjective Start: 03/29/24 14:55 Freq: Status: Active Protocol: Document 07/08/24 14:34 AB (Rec: 07/08/24 16:08 AB [id number]) OP-PT Subjective Patient Comments Patient Comments Patient nods no when questioned regarding pain and recent falls. PT-OP-D Balance Start: 01/31/24 14:55 Freq: Status: Active Protocol: Document 04/22/24 12:00 DCW (Rec: 04/22/24 12:18 DCW [id number]) Balance Tests Functional Reach Functional Reach Test 8 inches Functional Reach Impairment Rating 20 to <40% Impaired (Score 7-8 ) Romberg Romberg 30+ eyes open, 30+ eyes closed PT-OP-E Functional Tests Start: 01/31/24 14:55 Freq: Status: Active Protocol: Document 04/22/24 12:00 DCW (Rec: 04/22/24 12:18 DCW [id number]) Functional Tests 30 Second Sit to Stand Test Score x10 repetitions Comments UE use, controlled descent Timed Up and Go (TUG) Score 40.49 Comments /c LBQC TUG Impairment Rating 100% Impaired (Score 20) PT-OP-G Mobility & Gait Start: 01/31/24 14:55 Freq: Status: Active Protocol: Document 04/22/24 12:00 DCW (Rec: 04/22/24 12:08 DCW [id number]) OP Gait Assessment Assistive Devices Assistive Device Gait Belt,Large Based Quad Cane Gait Deviations General Gait Pattern Antalgic,Ataxic,Decreased Stride Length,Decreased Feet Clearance,Flexed Trunk,Lateral Trunk Lean,Step-to Gait Factors Limiting Gait Function Factors Limiting Gait Function Decreased Activity Tolerance, Decreased Strength,Difficulty Following Directions, Incoordination,Poor Balance, Poor Safety Awareness Stair Climbing Evaluation Evaluation Level of Assist On Stairs Standby Assistance Devices Stair Climbing Assistive Devices Left Railing,Right Railing Technique/Endurance Stair Climbing Direction Ascend and Descend Stair Climbing Technique Step to Step PT-OP-M Strength Start: 01/31/24 14:55 Freq: Status: Active Protocol: Document 04/22/24 12:00 DCW (Rec: 04/22/24 12:18 DCW [id number]) Hip Strength Hip Manual Muscle Testing Right Flexion (L2) 2+ Poor+ Abduction 2- Poor- Adduction 2+ Poor+ External Rotation 0 Zero Internal Rotation 0 Zero Left Flexion (L2) 4- Good- Abduction 4- Good- Adduction 4- Good- External Rotation 4+ Good+ Internal Rotation 4+ Good+ Knee Strength Knee Manual Muscle Testing Right Flexion (S2) 2- Poor- Extension (L3) 3 Fair Left Flexion (S2) 5 Normal Extension (L3) 5 Normal PT-OP-Q Treatments Start: 01/31/24 14:55 Freq: Status: Active Protocol: Document 07/08/24 14:34 AB (Rec: 07/08/24 16:08 AB [id number]) Gym Equipment Shuttle Recovery Unilateral Squats Resistance 25 Teal Reps/Time X15 each LE Bilateral Squats Details ball between knees Resistance 50# tealX2 Shuttle Recovery Platform Stable Reps/Time X11 stop due to left quad pain , gestures to quad, nods yes to pain left pat Therapeutic Exercises Sitting Exercises seated hip abduction Side bilateral Equipment Used level one band tied very loosly Reps/Minutes 60 sec hold and X 16 without hold cues at left LE Standing Exercises SLS right LE Standing Exercise Name right knee blocked Reps/Minutes X10 Comments with and without UE use Neuro Re-Education Treatment Balance Activities kick ball Equipment // bars Comments CGA to very minimal assist VC to initiate with hand above bar Tilt board Details Tilt board Comments Lateral weight shift and AP hands above bars CGA Tandem Details tandem stepping Equipment // bars Reps/Duration 10 feet hand above bar Comments CGA Balloon volley ball Details Balloon Volley on airex Surface [employer] Comments NBOS hurdles Details Hurdles Equipment // bars with UE support and CGA Reps/Duration 10 feet X 4 Comments fwd X 2 side step X 1 each direction PT-OP-T Assessment and Plan Start: 01/31/24 14:55 Freq: Status: Active Protocol: Document 07/08/24 14:34 AB (Rec: 07/08/24 16:08 AB [id number]) Physical Therapy Assessment Goals Two Impairment Pt ambulates 262 feet during his 6MWT, for a gait speed of 0.73 ft/sec Olive Pitter Goal (LTG) Pt to complete a 6MWT using a LBQC to ambulate >400', demonstrating an improved gait with a more efficient use of his AD 04/20/2024 254 feet with large based quad cane with 6 min walk test scuffing feet with hip strategy to self correct X 1. LTG Duration 07/21/24 One Impairment Pt does not have an appropriate home exercise program Short Term Goal (STG) Pt to be independent and compliant with an appropriate HEP 04/22/24: Poor compliance currently STG Duration 06/20/24 Assessment Summary Assessment Patient with improved follow through initiating hurdles and tandem stepping with hand above bar, but fatigues rapidly. Physical Therapy Plan Frequency and Duration Frequency of Treatment 2x/Week Plan of Care Start Date 04/22/24 Plan of Care End Date 07/21/24 Next Visit Focus/Plan Next Note Type Treatment Note Next Visit Plan Check with pre tx how pt blood sugars are and if anything we need to know for PT. POC : Assess tolerance ther ex throughout tx: resistance shuttle recovery on RLE and uneven surface activities without UE support. POC: Gait training, strengthening, activity tolerance
--- NOTE | 2024-07-16 16:15 | PT.OTN ---
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 (07/16/24) Aphasia following unspecified cerebrovascular disease (07/16/24) Unsteadiness on feet (07/16/24) Other abnormalities of gait and mobility (07/16/24) Repeated falls (07/16/24) Weakness (07/16/24) Personal history of transient ischemic attack (TIA), and cerebral infarction without residual deficits (07/16/24) Physical Therapy Treatment Note PT-OP-A Visit Information Start: 01/31/24 14:55 Freq: Status: Active Protocol: Document 07/16/24 13:00 AB (Rec: 07/16/24 16:14 AB [id number]) Out-Patient Physical Therapy Visit Information Visit Information Visit Type Treatment Note Visit Start Time 15:21 Visit Stop Time 16:02 Visit Number 36 Number of BILLIARD PARLOR MANAGER Visits 2 Evaluation Information Evaluation Date 01/31/24 Precautions Precautions Pt almost entirely non-verbal PT-OP-B Current Condition Start: 01/31/24 14:55 Freq: Status: Active Protocol: Document 01/31/24 13:45 DCW (Rec: 01/31/24 17:08 DCW [id number]) Current Condition History of Current Condition Onset Date 2013 Current Complaints CVA, decrease in balance and activity tolerance History of Current Condition Pt is a 68 year old male who is 10 years s/p CVA which resulted in fairly severe right-sided hemiplegia. Pt has been seen at this facility multiple times off and on since his initial CVA to work on balance, gait, strength, activity toelrance, and functional mobility. Pt is largely non-verbal since his CVA. His attends today's evaluation reporting he has experienced a decline in function since he was last treated in PT (was last discharged 11/01/22). reports he was really struggling a few months ago, limited mobility and very limited energy, but they have recently had some changes to the treatment of his diabetes, which has helped. admits he still does not want to do a whole lot outside, and just seems to have a more difficult time moving around, appears to have greatly decreased confidence. Recently exhibiting slower gait. Also bring up possibility of getting w/c for longer outdoor activities, wondering about letter of medical necessity. PT-OP-C Subjective Start: 03/29/24 14:55 Freq: Status: Active Protocol: Document 07/16/24 13:00 AB (Rec: 07/16/24 16:14 AB [id number]) OP-PT Subjective Patient Comments Patient Comments Patient nods no when questioned regarding pain and recent falls. PT-OP-D Balance Start: 01/31/24 14:55 Freq: Status: Active Protocol: Document 04/22/24 12:00 DCW (Rec: 04/22/24 12:18 DCW [id number]) Balance Tests Functional Reach Functional Reach Test 8 inches Functional Reach Impairment Rating 20 to <40% Impaired (Score 7-8 ) Romberg Romberg 30+ eyes open, 30+ eyes closed PT-OP-E Functional Tests Start: 01/31/24 14:55 Freq: Status: Active Protocol: Document 04/22/24 12:00 DCW (Rec: 04/22/24 12:18 DCW [id number]) Functional Tests 30 Second Sit to Stand Test Score x10 repetitions Comments UE use, controlled descent Timed Up and Go (TUG) Score 40.49 Comments /c LBQC TUG Impairment Rating 100% Impaired (Score 20) PT-OP-G Mobility & Gait Start: 01/31/24 14:55 Freq: Status: Active Protocol: Document 04/22/24 12:00 DCW (Rec: 04/22/24 12:08 DCW [id number]) OP Gait Assessment Assistive Devices Assistive Device Gait Belt,Large Based Quad Cane Gait Deviations General Gait Pattern Antalgic,Ataxic,Decreased Stride Length,Decreased Feet Clearance,Flexed Trunk,Lateral Trunk Lean,Step-to Gait Factors Limiting Gait Function Factors Limiting Gait Function Decreased Activity Tolerance, Decreased Strength,Difficulty Following Directions, Incoordination,Poor Balance, Poor Safety Awareness Stair Climbing Evaluation Evaluation Level of Assist On Stairs Standby Assistance Devices Stair Climbing Assistive Devices Left Railing,Right Railing Technique/Endurance Stair Climbing Direction Ascend and Descend Stair Climbing Technique Step to Step PT-OP-M Strength Start: 01/31/24 14:55 Freq: Status: Active Protocol: Document 04/22/24 12:00 DCW (Rec: 04/22/24 12:18 DCW [id number]) Hip Strength Hip Manual Muscle Testing Right Flexion (L2) 2+ Poor+ Abduction 2- Poor- Adduction 2+ Poor+ External Rotation 0 Zero Internal Rotation 0 Zero Left Flexion (L2) 4- Good- Abduction 4- Good- Adduction 4- Good- External Rotation 4+ Good+ Internal Rotation 4+ Good+ Knee Strength Knee Manual Muscle Testing Right Flexion (S2) 2- Poor- Extension (L3) 3 Fair Left Flexion (S2) 5 Normal Extension (L3) 5 Normal PT-OP-Q Treatments Start: 01/31/24 14:55 Freq: Status: Active Protocol: Document 07/16/24 13:00 AB (Rec: 07/16/24 16:14 AB [id number]) Gym Equipment Shuttle Recovery Unilateral Squats Resistance 25 Teal Reps/Time X15 each LE Bilateral Squats Details ball between knees Resistance 50# tealX2 Reps/Time 15 X2with tapping to facilitate quad Therapeutic Exercises Sitting Exercises seated hip abduction Side bilateral Equipment Used level one band tied very loosly Reps/Minutes 60 sec hold and X 16 without hold Standing Exercises resisted side stepping Standing Exercise Name CGA Also retro stepping with band 10 feet left and right X 1 Side bilateral Resistance Lv 2 T-band Equipment Used rail LUE support Reps/Minutes 10 feet X 2 left and right Gait Training Gait Activity large based quad cane Device Used LBQC Treatment Focus faclitation to increase stance time right LE, VC for posture eyes off feet Comments occ head turns and visual scanning Neuro Re-Education Treatment Balance Activities racquet on unstable surface Details pong balls and raquet, standing on blue cusion Comments CGA bilateral UE's on racquet kick ball Equipment // bars Comments CGA left hand above bar on initiation, right UE OUTDOOR STUDIES PROFESSOR Tandem Details tandem stepping Equipment // bars Reps/Duration 10 feet hand above bar Comments CGA hurdles Details Hurdles Equipment // bars with UE support and CGA then with right UE support L above bar int Reps/Duration 10 feet X 4 Self-Care/Home Management Treatment Education Other Education Patient ed to get out of chair at home every hour, perform HEP, walk, ie avoid sitting for more than an hour at a time. PT-OP-T Assessment and Plan Start: 01/31/24 14:55 Freq: Status: Active Protocol: Document 07/16/24 13:00 AB (Rec: 07/16/24 16:14 AB [id number]) Physical Therapy Assessment Goals Two Impairment Pt ambulates 262 feet during his 6MWT, for a gait speed of 0.73 ft/sec Long-Term Goal (LTG) Pt to complete a 6MWT using a LBQC to ambulate >400', demonstrating an improved gait with a more efficient use of his AD 04/20/2024 254 feet with large based quad cane with 6 min walk test scuffing feet with hip strategy to self correct X 1. LTG Duration 07/21/24 One Impairment Pt does not have an appropriate home exercise program Short Term Goal (STG) Pt to be independent and compliant with an appropriate HEP 04/22/24: Poor compliance currently STG Duration 06/20/24 Assessment Summary Assessment Patient able to initiate hurdles but not complete full step over without left UE support. Physical Therapy Plan Frequency and Duration Frequency of Treatment 2x/Week Plan of Care Start Date 04/22/24 Plan of Care End Date 07/21/24 Next Visit Focus/Plan Next Note Type Treatment Note Next Visit Plan Possibly review HEP POC : Assess tolerance ther ex throughout tx: resistance shuttle recovery on RLE and uneven surface activities without UE support. POC: Gait training, strengthening, activity tolerance
--- NOTE | 2024-12-22 11:25 | PT.OPDS ---
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 (07/16/24) Aphasia following unspecified cerebrovascular disease (07/16/24) Unsteadiness on feet (07/16/24) Other abnormalities of gait and mobility (07/16/24) Repeated falls (07/16/24) Weakness (07/16/24) Personal history of transient ischemic attack (TIA), and cerebral infarction without residual deficits (07/16/24) Visit Care Team Role Provider Type Delfino Epstein MD Attending Provider Physician Family Provider Primary Care Provider Referring Provider Specialty: Family Practice Address: [address] [place] [address], [address], [facility] Email: [email or web address] Visit Number Visit Number 36 Discharge Summary PT-OP-B Current Condition Start: 01/31/24 14:55 Freq: Status: Active Protocol: Document 01/31/24 13:45 DCW (Rec: 01/31/24 17:08 DCW [id number]) Current Condition History of Current Condition Onset Date 2013 Current Complaints CVA, decrease in balance and activity tolerance History of Current Condition Pt is a 68 year old male who is 10 years s/p CVA which resulted in fairly severe right-sided hemiplegia. Pt has been seen at this facility multiple times off and on since his initial CVA to work on balance, gait, strength, activity toelrance, and functional mobility. Pt is largely non-verbal since his CVA. His attends today's evaluation reporting he has experienced a decline in function since he was last treated in PT (was last discharged 11/01/22). reports he was really struggling a few months ago, limited mobility and very limited energy, but they have recently had some changes to the treatment of his diabetes, which has helped. admits he still does not want to do a whole lot outside, and just seems to have a more difficult time moving around, appears to have greatly decreased confidence. Recently exhibiting slower gait. Also bring up possibility of getting w/c for longer outdoor activities, wondering about letter of medical necessity. PT-OP-C Subjective Start: 01/31/24 14:55 Freq: Status: Active Protocol: Document 07/16/24 13:00 AB (Rec: 07/16/24 16:14 AB [id number]) OP-PT Subjective Patient Comments Patient Comments Patient nods no when questioned regarding pain and recent falls. PT-OP-D Balance Start: 01/31/24 14:55 Freq: Status: Active Protocol: Document 04/22/24 12:00 DCW (Rec: 04/22/24 12:18 DCW [id number]) Balance Tests Functional Reach Functional Reach Test 8 inches Functional Reach Impairment Rating 20 to <40% Impaired (Score 7-8 ) Romberg Romberg 30+ eyes open, 30+ eyes closed PT-OP-E Functional Tests Start: 01/31/24 14:55 Freq: Status: Active Protocol: Document 04/22/24 12:00 DCW (Rec: 04/22/24 12:18 DCW [id number]) Functional Tests 30 Second Sit to Stand Test Score x10 repetitions Comments UE use, controlled descent Timed Up and Go (TUG) Score 40.49 Comments /c LBQC TUG Impairment Rating 100% Impaired (Score 20) PT-OP-G Mobility & Gait Start: 01/31/24 14:55 Freq: Status: Active Protocol: Document 04/22/24 12:00 DCW (Rec: 04/22/24 12:08 DCW [id number]) OP Gait Assessment Assistive Devices Assistive Device Gait Belt,Large Based Quad Cane Gait Deviations General Gait Pattern Antalgic,Ataxic,Decreased Stride Length,Decreased Feet Clearance,Flexed Trunk,Lateral Trunk Lean,Step-to Gait Factors Limiting Gait Function Factors Limiting Gait Function Decreased Activity Tolerance, Decreased Strength,Difficulty Following Directions, Incoordination,Poor Balance, Poor Safety Awareness Stair Climbing Evaluation Evaluation Level of Assist On Stairs Standby Assistance Devices Stair Climbing Assistive Devices Left Railing,Right Railing Technique/Endurance Stair Climbing Direction Ascend and Descend Stair Climbing Technique Step to Step PT-OP-M Strength Start: 01/31/24 14:55 Freq: Status: Active Protocol: Document 04/22/24 12:00 DCW (Rec: 04/22/24 12:18 DCW [id number]) Hip Strength Hip Manual Muscle Testing Right Flexion (L2) 2+ Poor+ Abduction 2- Poor- Adduction 2+ Poor+ External Rotation 0 Zero Internal Rotation 0 Zero Left Flexion (L2) 4- Good- Abduction 4- Good- Adduction 4- Good- External Rotation 4+ Good+ Internal Rotation 4+ Good+ Knee Strength Knee Manual Muscle Testing Right Flexion (S2) 2- Poor- Extension (L3) 3 Fair Left Flexion (S2) 5 Normal Extension (L3) 5 Normal PT-OP-T Assessment and Plan Start: 01/31/24 14:55 Freq: Status: Active Protocol: Document 12/22/24 11:25 DCW (Rec: 12/22/24 11:25 DCW [id number]) Physical Therapy Assessment Assessment Summary Assessment Pt has not been seen in five months, and the POC has . Pt will require a new referring to return to skilled PT. Pt will be discharged at this time. Physical Therapy Plan Discharge Physical Therapy Discharge Reasons No Longer Attending PT
== END 2024-12-31 09:51 | disposition home or self-care (01) ==
LOC: PHYS 15:15
PROVIDERS: Family Provider Family Medicine; PCP Family Medicine; Referring Provider Family Medicine; Visit Provider Family Medicine
DX: I69.920 Aphasia following unspecified cerebrovascular disease (principal); R53.1 Weakness; R26.89 Other abnormalities of gait and mobility; R26.81 Unsteadiness on feet; R29.6 Repeated falls
CPT/HCPCS: 97110; 97112; 97116; 97140; 97163; 97530

== ENCOUNTER → 2024-08-10 16:18 | Outpatient (CLI) | payer MEDICARE, SELFPAY ==
[2019-09-02 12:00] VITALS: BMI 23.4
[2024-08-10 17:24] LABS: Add Manual Diff / Slide Review NO; Basophils Absolute Auto 0 /uL (0-100); Basophils Percent Auto 0.5 % (0-2); Eosinophils Absolute Auto 300 /uL (0-450); Eosinophils Percent Auto 5.5 % (2-4); Hematocrit 36.7 % (41-53); Hemoglobin 12.6 g/dL (13.5-17.5); Lymphocytes Absolute Auto 1200 /uL (1100-4500); Lymphocytes Percent Auto 25.4 % (25-40); Mean Corpuscular HGB Conc 34.3 % (30-36); Mean Corpuscular Hemoglobin 31.6 PG (26-34); Monocytes Absolute Auto 700 /uL (0-900); Monocytes Percent Auto 14.8 % (3-14); Neutrophils Absolute Auto 2500 /uL (1500-7000); Neutrophils Percent Auto 53.8 % (50-75); Platelet Count 169 X10^3/uL (150-400); Red Blood Cell Count 3.99 X10^6/uL (4.5-5.9); Red Cell Distribution Width 15.4 % (11.6-14.8); White Blood Cell Count 4.7 X10^3/uL (4.5-11.0)
[2024-08-10 17:46] LABS: Erythrocyte Sedimentation Rate 52 MM/HR (0-15)
[2024-08-10 17:48] LABS: Hemoglobin A1C% w Est Avg Glu 6.5 % (4.0-6.0)
[2024-08-10 17:59] LABS: Alanine Aminotransferase 25 IU/L (<50); Albumin 3.7 g/dL (3.5-5.0); Albumin Globulin Ratio 0.9 (1.0-2.8); Alkaline Phosphatase 57 U/L (38-126); Aspartate Aminotransferase 34 IU/L (17-59); BUN Creatinine Ratio 12.5 (6-22); Bilirubin Total 0.5 mg/dL (0.2-1.3); Blood Urea Nitrogen 12 mg/dL (9-20); Calcium 9.5 mg/dL (8.4-10.2); Carbon Dioxide 29 mmol/L (22-32); Chloride 94 mmol/L (98-107); Cholesterol 174 mg/dL (140-199); Estimated Glomerular Filt Rate > 60 mL/min (>60); Globulin 4.2 g/dL (1.7-4.1); Glucose 136 mg/dL (80-110); HDL Cholesterol 39 mg/dL (40-60); HEMOLYSIS 17 (0-50); LDL Cholesterol Calculated 120 mg/dL (<100); Potassium 4.3 mmol/L (3.4-5.1); Sodium 129 mmol/L (137-145); Total Protein 7.9 g/dL (6.3-8.2); Triglycerides 77 mg/dL (35-150)
== END ==
PROVIDERS: Family Provider Family Medicine; PCP Family Medicine; Referring Provider Family Medicine; Visit Provider Family Medicine
DX: E78.5 Hyperlipidemia, unspecified (principal); E11.59 Type 2 diabetes mellitus with other circulatory complications; Z79.4 Long term (current) use of insulin; Z79.899 Other long term (current) drug therapy; I10 Essential (primary) hypertension; M05.79 Rheumatoid arthritis with rheumatoid factor of multiple sites without organ or systems involvement
CPT/HCPCS: 36415; 80053; 80061; 83036; 85025; 85651

== ENCOUNTER → 2024-09-09 10:54 | Outpatient (CLI) | payer MEDICARE, SELFPAY ==
[2019-09-02 12:00] VITALS: BMI 23.4
--- NOTE | 2024-10-23 17:14 | DIAB.MNTFU ---
Follow-up Diabetes Medical Nutrition Therapy Assessment Name: Sukh Colvin Date: 09/09/24 Time: a Dx: Type II Diabetes Willy presents with spouse, Felicity. His father recently passed. Lower appetite reported. Aiming for small frequent meals. Wanting more snack ideas with kcal and Na in mind. Likes avocado. Will sometimes enjoy a smoothie with veggies. Weight down from documented results in EMR. Anthropometrics: Ht: 68 Wt: 160# 06/2024 170.5# 04/2024 at PCP Self-Monitoring Blood Glucose: Slight improved time in range. Today TIR: 1% very high 16% high 82% in range 1% low <1% very low Avmg/dl GMI 6.8% variations: 24.5% Last Visit TIR: 1% very high 19% high 79% in range <1% low <1% very low Avmg/dl GMI 7.9% variations: 24.5% Diabetes Medications: 18u Glargine AM 0-2u Aspart (SSI)-- up to 4-5u prn 1000mg Metformin BID Pertinent Labs: HgA1c: 6.9% 01/2023 6.2% 02/2024 6.5% 08/2024 Past Medical History: (Last Reviewed 03/14/24 @ 10:18 by Annemarie Weems DO) Acute hyponatremia Antiphospholipid antibody syndrome Aphasia following cerebrovascular disease (01/27/15) CAD (coronary artery disease) Cardiac arrhythmia Cerebrovascular accident (CVA) involving left middle cerebral artery territory (09/01/15) Chronic atrial flutter (09/01/15) Chronic systolic congestive heart failure (09/01/15) Controlled insulin dependent diabetes mellitus Coronary artery disease involving [place] coronary artery of [place] heart without angina pectoris (09/01/15) CVA (cerebral vascular accident) Diabetes mellitus DVT (deep venous thrombosis) Essential hypertension (09/01/15) Facial laceration Hemiparesis affecting dominant side as late effect of cerebrovascular accident (01/27/15) History of stroke with residual deficit Right-sided neurological deficits Hyperglycemia Hyperlipidemia (09/01/15) Hyperlipidemia Myocardial infarction Pacemaker Rheumatoid arthritis Stenosis of left carotid artery (12/22/13) Systolic heart failure Type 2 diabetes mellitus Weakness Nutrition Rx: Carbohydrates: Meal: 30-45g Snack:15-30g Nutrition Diagnosis: Food and nutrition knowledge deficit r/t recent Barium swallow indicating need for change in food textures aeb pt report and barium swallow- improved Predicted inadequate energy intake r/t reduced appetite aeb spouse reported and down 10# over 2 months per EMR- new Intervention: This participant was very receptive. Provided appropriate educational handouts. Discussed the following topics: Blood sugar review and trends. Impact of food intake on results. High Kcal snack ideas Foods he enjoys higher in protein Created SMART goals for patient self-care and success. Goals: Try new snacks- met Add avocado to smoothies- met Whip PB with milk- not discussed Try higher kcal snacks- new Follow-up: MAXI FOSTER follow-up in January per spouse request. Maria T Little RDN, [facility] Certified Diabetes Care and Enrollment Management Coordinator P: [phone] Thank you for this referral
== END ==
PROVIDERS: Family Provider Family Medicine; PCP Family Medicine; Referring Provider Family Medicine
DX: E11.59 Type 2 diabetes mellitus with other circulatory complications (principal); Z71.3 Dietary counseling and surveillance; Z68.23 Body mass index [BMI] 23.0-23.9, adult; Z79.84 Long term (current) use of oral hypoglycemic drugs; Z79.4 Long term (current) use of insulin
CPT/HCPCS: 97803

== ENCOUNTER → 2024-12-25 14:52 | Outpatient (CLI) | payer MEDICARE, SELFPAY ==
[2019-09-02 12:00] VITALS: BMI 23.4
[2024-12-25 16:07] LABS: Appearance Urine UA CLEAR; Bilirubin Urine UA NEGATIVE (NEGATIVE); Color Urine UA YELLOW; Glucose Urine UA NEGATIVE (Negative); Ketones Urine UA NEGATIVE (NEGATIVE); Leukocyte Esterase Urine UA NEGATIVE (NEGATIVE); Nitrite Urine UA NEGATIVE (Negative); Occult Blood Urine UA 2+ (Negative); Protein Urine UA NEGATIVE (Negative); Urobilinogen Urine UA 0.2 E.U./dL (0.2)
[2024-12-25 16:27] LABS: Bacteria Urine Few (2-10); Culture Indicated Urine Cult Not Indicated; RBC Urine 0-1/HPF (0-5/HPF); Squamous Epithelial Cell Urine 0-1 /HPF (0-5/HPF); Urine Volume Low Vol <10mL (spun); WBC Urine 0-1/HPF (0-5/HPF)
== END ==
LOC: LAB 14:53
PROVIDERS: Family Provider Family Medicine; PCP Family Medicine; Referring Provider Urology; Visit Provider Urology
DX: R39.9 Unspecified symptoms and signs involving the genitourinary system (principal)
CPT/HCPCS: 81001

== ENCOUNTER → 2024-12-28 15:29 | Outpatient (CLI) | payer MEDICARE, SELFPAY ==
[2019-09-02 12:00] VITALS: BMI 23.4
[2024-12-28 17:47] LABS: Alanine Aminotransferase 58 IU/L (<50); Alkaline Phosphatase 52 U/L (38-126); Aspartate Aminotransferase 57 IU/L (17-59)
== END ==
PROVIDERS: Family Provider Family Medicine; PCP Family Medicine; Referring Provider Specialist/Technologist Athletic Trainer; Visit Provider Specialist/Technologist Athletic Trainer
DX: M05.9 Rheumatoid arthritis with rheumatoid factor, unspecified (principal)
CPT/HCPCS: 36415; 84075; 84450; 84460

== ENCOUNTER → 2024-12-28 15:34 | Outpatient (CLI) | payer MEDICARE, SELFPAY ==
[2019-09-02 12:00] VITALS: BMI 23.4
--- NOTE | 2024-12-28 15:34 | DI.US.S_ITS ---
PROCEDURE: US RENAL COMPLETE INDICATIONS: renal calc,lower urinary tract symptoms TECHNIQUE: Real-time scanning was performed of the kidneys and bladder, with image documentation. COMPARISON: [facility], , US RENAL COMPLETE, 08/14/2019, 12:49. FINDINGS: Kidneys: Kidneys are normal in size. Right kidney measures 10.3 cm long; left kidney measures 11.7 cm long. Right renal cortical thickness is 1.9 cm; left renal cortical thickness is 1.4 cm. Nonobstructing stones are noted in lower pole right kidney measures up to 5 mm in size. Simple appearing bilateral renal cysts are seen measures up to 2.9 x 2.3 x 2.4 cm in size in right kidney and 6.5 x 5.4 x 6.8 cm in size in upper pole left kidney. No hydronephrosis. No suspicious solid mass lesions. Bladder: No gross abnormality is seen in decompressed urinary bladder. No ureteral jets are seen. Miscellaneous: No free pelvic fluid. IMPRESSION: 1. Nonobstructing stone seen in lower pole right kidney. No hydronephrosis. 2. Simple appearing bilateral renal cysts as above. No solid appearing renal lesion. 3. No gross abnormality is seen in partially decompressed urinary bladder. Dictated by: Faustino Valle M.D. on 12/28/2024 at 17:21 Approved by: Faustino Valle M.D. on 12/28/2024 at 17:23
== END ==
PROVIDERS: Family Provider Family Medicine; PCP Family Medicine; Referring Provider Urology; Visit Provider Urology
DX: N20.0 Calculus of kidney (principal); N28.1 Cyst of kidney, acquired; R39.9 Unspecified symptoms and signs involving the genitourinary system; M05.9 Rheumatoid arthritis with rheumatoid factor, unspecified
CPT/HCPCS: 36415; 76770; 84075; 84450; 84460

== ENCOUNTER → 2025-01-13 10:59 | Outpatient (CLI) | payer MEDICARE, SELFPAY ==
[2019-09-02 12:00] VITALS: BMI 23.4
--- NOTE | 2025-02-23 15:36 | DIAB.MNTFU ---
Follow-up Diabetes Medical Nutrition Therapy Assessment Name: Sukh Colvin Date: 01/13/25 Time: [id number] Dx: Type II Diabetes Willy presents with spouse, Felicity. Felicity reports appetite changes are apparent. Endorses frequent constipation, which may be r/t h/o stroke per report. Unsure of frequency, but reports allergy to miralax. Eats well at breakfast but the rest of the day is not consistent. Diet recall: 9a: eggs, with veggies, ww toast, berries and sausage (finishes this meal) 12p: half ww sandwich with turkey and cheese OR grilled cheese OR PBJ sn; PB crackers OR fig bars OR pirate booty snack OR crackers OR PBJ 630p: pork chop, whild rice, carrots (ate very little, besides carrots) OR cod, veggies, couscous (ate none) water coffee Weight up some from June visit, but minimal. Anthropometrics: Ht: 68 Wt: 161.7# 160# 06/2024 170.5# 04/2024 at PCP Self-Monitoring Blood Glucose: Continued improvement in TIR. Very much in goal. Today TIR: 1% very high 9% high 90% in range 0% low <1% very low Avmg/dl GMI 6.6% std dev; 31mg/dl variations: 22.4% Last Visit TIR: 1% very high 16% high 82% in range 1% low <1% very low Avmg/dl GMI 6.8% variations: 24.5% Diabetes Medications: 18u Glargine AM -- only when >220mg/dl 0-2u Aspart (SSI)-- up to 4-5u prn--- hardly ever 1000mg Metformin BID Pertinent Labs: HgA1c: 6.9% 01/2023 6.2% 02/2024 6.5% 08/2024 Past Medical History: (Last Reviewed 03/14/24 @ 10:18 by Annemarie Weems DO) Acute hyponatremia Antiphospholipid antibody syndrome Aphasia following cerebrovascular disease (01/27/15) CAD (coronary artery disease) Cardiac arrhythmia Cerebrovascular accident (CVA) involving left middle cerebral artery territory (09/01/15) Chronic atrial flutter (09/01/15) Chronic systolic congestive heart failure (09/01/15) Controlled insulin dependent diabetes mellitus Coronary artery disease involving [place] coronary artery of [place] heart without angina pectoris (09/01/15) CVA (cerebral vascular accident) Diabetes mellitus DVT (deep venous thrombosis) Essential hypertension (09/01/15) Facial laceration Hemiparesis affecting dominant side as late effect of cerebrovascular accident (01/27/15) History of stroke with residual deficit Right-sided neurological deficits Hyperglycemia Hyperlipidemia (09/01/15) Hyperlipidemia Myocardial infarction Pacemaker Rheumatoid arthritis Stenosis of left carotid artery (12/22/13) Systolic heart failure Type 2 diabetes mellitus Weakness Nutrition Rx: Carbohydrates: Meal: 30-45g Snack:15-30g Nutrition Diagnosis: Predicted inadequate energy intake r/t reduced appetite aeb spouse reported and pre down 10# over 2 months per EMR- in progress from last visit Intervention: This participant was very receptive. Provided appropriate educational handouts. Discussed the following topics: Blood sugar review and trends. High Kcal snack ideas Foods he enjoys higher in protein and healthy fats Potential for fiber supplement prn Smoothie ideas Created SMART goals for patient self-care and success. Goals: Try higher kcal snacks- in progress Try avocados- new Try evening smoothie - new May want to consider fiber supplement- new Follow-up: MAXI FOSTER follow-up prn as req by spouse. Encouraged them to call or message for follow-up questions or visits. Mraia T Little RDN, KRISTIN Certified Diabetes Care and Functional Analyst P: [phone] Thank you for this referral
== END ==
PROVIDERS: Family Provider Family Medicine; PCP Family Medicine; Referring Provider Family Medicine
DX: E11.59 Type 2 diabetes mellitus with other circulatory complications (principal); K59.00 Constipation, unspecified; Z79.4 Long term (current) use of insulin; Z79.84 Long term (current) use of oral hypoglycemic drugs; Z71.3 Dietary counseling and surveillance
CPT/HCPCS: 97803

== ENCOUNTER → 2025-01-14 11:54 | Outpatient (CLI) | payer MEDICARE, SELFPAY ==
[2019-09-02 12:00] VITALS: BMI 23.4
--- NOTE | 2025-01-14 11:56 | DI.CT.S_ITS ---
PROCEDURE: CT ABDOMEN PELVIS W CON INDICATIONS: lower quadrent pain with incontance of stool TECHNIQUE: After the administration of intravenous contrast, axial sections acquired from the lung bases to the pubic symphysis. Coronal and sagittal reformats were performed. For radiation dose reduction, the following was used: automated exposure control, adjustment of mA and/or kV according to patient size. COMPARISON: [facility], CR, XR CHEST 2V, 05/13/2024, 11:00. [facility], CT, CT KIDNEY URETER BLADDER (KUB), 09/04/2019, 15:44. FINDINGS: Image quality: Diagnostic. Lower Chest: Interval increase in moderate patchy consolidations of the bilateral lower lobes with more central distribution and peripheral sparing. Possible trace left pleural effusion. Minimal septal thickening of the bilateral lower lobes. No septal thickening or nodularity. Heart size is enlarged. Atherosclerosis of the coronary arteries. Small pericardial effusion. ABDOMEN: Liver: No solid mass. Gallbladder: Redemonstration of numerous gallstones within the gallbladder. No wall thickening or pericholecystic fluid. There are likely multiple stones noted in the gallbladder neck and possibly within the cystic duct. Biliary ducts: No biliary dilation. Pancreas: Homogeneous enhancement without focal lesions or pancreatic ductal dilatation. No peripancreatic inflammation or organized fluid collections. Spleen: Size is within normal limits. Adrenal Glands: No adrenal nodules. Kidneys and Ureters: No hydronephrosis. No solid mass. No complex renal cystic lesion which requires follow up. Redemonstration of multiple bilateral renal cysts larger on the left. Stable punctate nonobstructing right renal stone. Bilateral ureters are normal in course and caliber without ureteral stones. Stomach and Bowel: Normal colonic caliber, without significant wall thickening. No evidence for small bowel obstruction or associated inflammatory changes. Minimal circumferential wall thickening of the distal sigmoid colon and rectum. No acute inflammatory changes. This may be related to incomplete distension. Peritoneum: No abnormal intraperitoneal fluid. No free air. Ventral Wall: There is a fat-containing umbilical hernia without acute inflammation. Abdominal Nodes: No retroperitoneal or mesenteric adenopathy by size criteria. Vessels: Scattered atherosclerotic calcifications of the abdominal aorta and iliac vessels without aneurysmal dilatation. The inferior vena cava appears patent. PELVIS: Pelvic Organs: Mild prostatomegaly Bladder: No bladder wall thickening, accounting for underdistention. Pelvic Nodes: No enlarged lymph nodes. Miscellaneous: No inguinal hernias are seen. Bones: No aggressive osseous abnormality. No acute vertebral body compression fractures. Multilevel spondylitic changes throughout the imaged spine. No suspicious osseous lesions. Severe degenerative changes of the bilateral hips more pronounced on the right. IMPRESSION: Moderate patchy ill-defined consolidations of the bilateral lower lobes with peripheral sparing. In the setting of cardiomegaly and small pericardial effusion, findings may represent mild pulmonary edema. Other considerations include pulmonary hemorrhage or pneumonia. Recommend clinical correlation. Otherwise, no acute abnormalities identified in the abdomen or pelvis. Redemonstration of cholelithiasis without CT evidence for acute cholecystitis. There is however, suggestion of stones within the distal gallbladder neck and cystic duct. Minimal circumferential wall thickening of the distal sigmoid colon and rectum without associated inflammatory changes likely related to incomplete distension. However, minimal/mild proctocolitis not excluded if clinically appropriate. Dictated by: Dennis Garza M.D. on 01/14/2025 at 17:35 Approved by: Dennis Garza M.D. on 01/14/2025 at 18:06
[2025-01-14 12:20] LABS: Estimated Glomerular Filt Rate > 60 mL/min (>60)
[2025-01-14 12:33] LABS: Hemoglobin A1C% w Est Avg Glu 5.9 % (4.0-6.0)
[2025-01-14 15:18] LABS: BUN Creatinine Ratio 12.4 (6-22); Blood Urea Nitrogen 11 mg/dL (9-20); Calcium 9.4 mg/dL (8.4-10.2); Carbon Dioxide 25 mmol/L (22-32); Chloride 96 mmol/L (98-107); Estimated Glomerular Filt Rate > 60 mL/min (>60); Glucose 131 mg/dL (80-110); HEMOLYSIS 21 (0-50); Potassium 4.3 mmol/L (3.4-5.1); Sodium 129 mmol/L (137-145)
== END ==
PROVIDERS: Radiology Diagnostic Radiology; Family Provider Family Medicine; PCP Family Medicine; Referring Provider Family Medicine; Visit Provider Family Medicine
DX: E11.9 Type 2 diabetes mellitus without complications (principal); R10.31 Right lower quadrant pain; K59.00 Constipation, unspecified; R15.9 Full incontinence of feces; I51.7 Cardiomegaly; I31.39 Other pericardial effusion (noninflammatory); K80.20 Calculus of gallbladder without cholecystitis without obstruction
CPT/HCPCS: 36415; 74177; 80048; 82565; 83036; Q9967

== ENCOUNTER → 2025-02-13 12:38 | Outpatient (CLI) | payer MEDICARE, SELFPAY ==
[2019-09-02 12:00] VITALS: BMI 23.4
--- NOTE | 2025-02-13 12:41 | DI.CT.S_ITS ---
PROCEDURE: CT CHEST WO CON INDICATIONS: Decreased lung sounds R side; cough; shortness of breath TECHNIQUE: Noncontrast 5 mm thick sections acquired from the pulmonary apices to the posterior costophrenic angles. 1 mm lung window, 5 mm thick coronal and sagittal and 7 mm axial MIP reformats were then acquired. For radiation dose reduction, the following was used: automated exposure control, adjustment of mA and/or kV according to patient size. COMPARISON: [facility], CT, CT ABDOMEN PELVIS W CON, 01/14/2025, 13:25. [facility], CR, XR CHEST 2V, 05/13/2024, 11:00. FINDINGS: Image quality: Diagnostic. Lower Neck: No enlarged lymph nodes. Thyroid: Enlarged thyroid gland with diffuse heterogeneous contrast enhancement and focal areas of calcification are seen. Axillae: No enlarged lymph nodes. Chest Wall: Left chest wall pacemaker is seen. Bones: No aggressive appearing bony lesions. Lungs and Pleura: Extensive airspace opacities are noted throughout bilateral lower lobes . Smaller airspace opacities are seen scattered in right middle lobe and left lingular segment extending to bilateral hilar region. No pleural effusion or pneumothorax. Mild bronchiectasis in bilateral lower lung zone is seen. Heart: Heart size is enlarged. No pericardial effusion. Pacemaker leads are seen. Thoracic Vessels: The aorta and pulmonary arteries demonstrate normal size. Mediastinum and Tayla: No enlarged lymph nodes. Esophagus: No wall thickening. No hiatal hernia. Upper Abdomen: Calcified gallstones are seen. No gallbladder wall thickening. Bilateral renal cysts are noted. No gross hydronephrosis. IMPRESSION: 1. Finding is suggestive of extensive bilateral multilobar infiltrates more notably in bilateral lower lobes with associated bronchiectasis. No pleural effusion or pneumothorax. 2. No gross mediastinal or hilar lymphadenopathy. 3. Cardiomegaly, no pericardial effusion. Left chest wall pacemaker in place. Dictated by: Faustino Valle M.D. on 02/14/2025 at 21:33 Approved by: Faustino Valle M.D. on 02/14/2025 at 21:37
== END ==
LOC: CT 12:40
PROVIDERS: Family Provider Family Medicine; PCP Family Medicine; Referring Provider Physician Assistant; Visit Provider Physician Assistant
DX: I31.39 Other pericardial effusion (noninflammatory) (principal); J47.9 Bronchiectasis, uncomplicated; R05.9 Cough, unspecified; R06.02 Shortness of breath; I51.7 Cardiomegaly; E04.9 Nontoxic goiter, unspecified; K80.20 Calculus of gallbladder without cholecystitis without obstruction; Z95.0 Presence of cardiac pacemaker
CPT/HCPCS: 71250

== ENCOUNTER → 2025-04-13 10:46 | Outpatient (CLI) | payer MEDICARE, MEDICAID, SELFPAY ==
[2019-09-02 12:00] VITALS: BMI 23.4
--- NOTE | 2025-04-13 14:45 | ST.SWALLOW ---
Visit Care Team Role Provider Type Delfino Epstein MD Attending Provider Physician Family Provider Primary Care Provider Referring Provider Specialty: Family Practice Address: [address] [place] [address], [address], [place], [address] Email: [email or web address] Modified Barium Swallow Study CASHIER SUPERVISOR Modified Barium Swallow Study Start: 04/13/25 12:18 Freq: Status: Active Protocol: Document 04/13/25 12:19 LNK (Rec: 04/13/25 14:45 LNK Desktop) Modified Barium Swallow Study Total Time Visit Start Time 11:00 Visit Stop Time 11:30 Total Visit Minutes [address] Delfino Epstein Reason for Referral dysphagia Setting Setting Outpatient Care Patient Information Identification Type Name,Date of Patient History Pt was seen for a Modified Barium Swallow Study at the referral of Dr. Epstein. Pt is well known to this CASHIER SUPERVISOR, having seen him for outpt ST and previous MBSSs. Pt's last MBSS was on 05/11/2024. The results of that MBSS indicated mild to moderate oropharyngeal dysphagia with increased weakness as the MBSS progressed. Pt was seen by ST following MBSS targeting increase tongue base strength and safe swallow strategies from 05/19/24- 02/22/25. Pt has an extensive PMH that includes CVA with right side paresis and expressive aphasia, dysphagia, chronic systolic congestive heart failure and interstistial lung disease. According to pt's , he is being seen by a agency service coordinator. A CAT scan (01/14/2025) indicated: Ill defined consolidations of the bilateral lower lobes with peripheral sparing. As pneumonia was a possible diagnosis and with pt's history of dysphagia, an MBSS was ordered to determine pt's current aspiration risk. Subjective Pt was accompanied by his , who provided background Observations information. Pt was seated in the flouroscopy chair with directions and procedures explained for him. He indicated he understood and agreed to proceed. Patient Positioning Position View Lat-A/P Imaging Lateral View Textures Administered Trials Presented Thin Liquid via Spoon (IDDSI 0),Thin Liquid via Cup ( IDDSI 0),Extremely Thick Liquid via Spoon (IDDSI 4), Regular (IDDSI 7) Barium Tablet Yes The IDDSI Framework Protocol: IDDSI.1 Oral Impairment Source: The Modified Barium Swallow Impairment Profile (MBSImP??) Lip Closure Interlabial escape; no progression to anterior lip Tongue Control Posterior escape of less than half of bolus During Bolus Hold Bolus Preparation/ Slow prolonged chewing/mashing with complete re- Mastication collection Bolus Transport/ Delayed initiation of tongue motion Lingual Motion Oral Residue Complete oral clearance Initiation of Bolus head at pyriforms Pharyngeal Swallow Additional Oral *OM examination noted reduced ROM, strength, and speed Impairment across structures. DKS was not attempted Observations *Pt has upper/lower dentures that appeared to be well fit and in good hygiene *Mastication appeared to be adequate with good bolus formation, control and AP transition. With the cookie trial (regular texture) small pieces of cookie were observed within the bolus Pharyngeal Impairment Source: The Modified Barium Swallow Impairment Profile (MBSImP??) Soft Palate No bolus between soft palate & pharyngeal wall Elevation Laryngeal Elevation Comp.sup.move.thyroid cart.w/comp.approx.arytenoids to epiglot petiole Anterior Hyoid Complete anterior movement Excursion Epiglottic Movement Complete inversion Laryngeal Vestibular Complete; no air/contrast in laryngeal vestibule Closure Pharyngeal Stripping Present - diminished Wave Pharyngoesophageal Complete distention & complete duration; no obstruction Segment Opening of flow Tongue Base Trace column of contrast/air betwn tongue base & post. Retraction pharyngeal wall Pharyngeal Residue Collection of residue within/on pharyngeal structures Location Diffuse (>3 areas) Additional *Adequate to mild reduction in base of tongue Pharyngeal retraction strength, hyolaryngeal elevation and Impairment movement as trials were presented Observations *Complete epiglottic inversion with good seal of the laryngeal vestibule *Minimal pharyngeal pooling with thin liquids *With semi-solid and solid trials, there was moderate pooling within the valeculla, requiring additional swallows to clear. Pooled residual/secretions/small pieces of cookie trial were observed on the aryepiglottic folds and may pose a risk for aspiration , especially if pt is tired or distracted during meals (i.e., watching TV). *When compared to the 2023 MBSS, increased pooling for semi solid/solid trials may represent a decrease of pharyngeal control for those textures *No laryngeal penetration or tracheal aspiration were observed. Pt appears able to protect airway when eating /drinking. A/P View The IDDSI Framework Protocol: IDDSI.1 A/P View Observations Pharyngeal Complete Contraction Esophageal Clearance Complete clearance; esophageal coating Upright Position Esophageal Function WFL Additional A-P Esophageal phase of swallow WNL Observations Clinical Impressions Dysphagia Type Pharyngeal Findings *Mild oropharyngeal phase dysphagia *When reviewing and comparing the 2023 MBSS with today' s MBSS, there is overall improvement in base of tongue retraction strength, hyolaryngeal and epiglottal function. Pt has been receiving swallow therapy with focus of increased base of tongue strength since May 2024. Pt's reports consistent practice of recommended exercises at home. It appears these exercises and consistent practice have been effective in improving this pt's swallowing as well as reducing his aspirations risk *Pt was observed to protect his airway with no observed laryngeal penetration or tracheal aspiration. *With semisolid an solid trials there was increased pooling within the valeculla and some residual was noted on the aryepiglottic folds. If the pt is aspiration, it would likely be related to traces of residual/secretions entering the airway. *Pt was reported to have a strong protective cough most of the time Patient Appropriate No: Pt was recenty (January 2025) discharged from with for Therapy dysphagia goals met Recommendations Diet Comments No changes in diet recommended. Aspiration Precautions Recommended Left Head Turn Precautions Additional Increased liquids during meals would likely reduce the Precautions valeculla pooling
== END ==
PROVIDERS: Family Provider Family Medicine; PCP Family Medicine; Referring Provider Family Medicine; Visit Provider Family Medicine
DX: I69.920 Aphasia following unspecified cerebrovascular disease (principal); I69.991 Dysphagia following unspecified cerebrovascular disease; R13.12 Dysphagia, oropharyngeal phase
CPT/HCPCS: 74230; 92611

== ENCOUNTER → 2025-08-05 11:44 | Outpatient (CLI) | payer MEDICARE, MEDICAID, SELFPAY ==
[2019-09-02 12:00] VITALS: BMI 23.4
--- NOTE | 2025-08-05 11:45 | DI.RAD.S_ITS ---
PROCEDURE: XR CHEST 2V INDICATIONS: cough TECHNIQUE: 2 views of the chest were acquired. COMPARISON: [facility], CR, XR CHEST 2V, 05/13/2024, 11:00. [facility], CR, XR CHEST 2V, 04/01/2024, 10:55. FINDINGS: Surgical changes and devices: Multi lead cardiac device is redemonstrated. Lungs and pleura: Persistent interstitial and ground-glass prominence at the lung bases. No new opacities. No effusions or pneumothorax detected. Mediastinum: Mediastinal contours are normal. Heart size is normal. Bones and chest wall: No suspicious bony abnormalities. Soft tissues appear unremarkable. IMPRESSION: Persistent mid and lower lung opacities noted at the bilateral lung bases. Findings are nonspecific but could represent chronic interstitial changes/scarring. Atelectasis is also in the differential. Dictated by: Gina Patterson M.D. on 08/05/2025 at 12:19 Approved by: Gina Patterson M.D. on 08/05/2025 at 12:23
== END ==
PROVIDERS: PCP Family Medicine; Referring Provider Family Medicine; Visit Provider Family Medicine
DX: J47.9 Bronchiectasis, uncomplicated (principal); R05.3 Chronic cough
CPT/HCPCS: 71046

== ENCOUNTER 2025-08-06 12:15 | Outpatient (RCR) | payer MEDICARE, SELFPAY ==
[2019-09-02 12:00] VITALS: BMI 23.4
--- NOTE | 2025-02-18 16:04 | PT.OIE ---
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 (02/18/25) Personal history of transient ischemic attack (TIA), and cerebral infarction without residual deficits (02/18/25) Past Medical History (Last Reviewed 08/17/24 @ 11:32 by Delfino Epstein MD) Acute hyponatremia Antiphospholipid antibody syndrome Aphasia following cerebrovascular disease (01/27/15) CAD (coronary artery disease) Cardiac arrhythmia Cerebrovascular accident (CVA) involving left middle cerebral artery territory (09/01/15) Chronic atrial flutter (09/01/15) Chronic systolic congestive heart failure (09/01/15) Controlled insulin dependent diabetes mellitus Coronary artery disease involving [place] coronary artery of [place] heart without angina pectoris (09/01/15) CVA (cerebral vascular accident) Diabetes mellitus DVT (deep venous thrombosis) Essential hypertension (09/01/15) Facial laceration Hemiparesis affecting dominant side as late effect of cerebrovascular accident (01/27/15) History of stroke with residual deficit Hyperglycemia Hyperlipidemia (09/01/15) Hyperlipidemia Myocardial infarction Pacemaker Rheumatoid arthritis Stenosis of left carotid artery (12/22/13) Systolic heart failure Type 2 diabetes mellitus Weakness Past Surgical History (Last Reviewed 08/17/24 @ 11:32 by Delfino Epstein MD) AICD (automatic cardioverter/defibrillator) present History of angioplasty Presence of cardiac pacemaker Visit Care Team Role Provider Type Delfino Epstein MD Attending Provider Physician Family Provider Primary Care Provider Referring Provider Specialty: Family Practice Address: [address] [place] [address], [facility] Email: [email or web address] Physical Therapy Initial Evaluation PT-OP-A Visit Information Start: 02/18/25 12:52 Freq: Status: Active Protocol: Document 02/18/25 12:15 DCW (Rec: 02/18/25 12:59 DCW [id number]) Out-Patient Physical Therapy Visit Information Visit Information Visit Type Initial Evaluation Visit Start Time 12:15 Visit Stop Time 12:50 Visit Number 1 Number of SOFTWARE TESTER Visits 0 Evaluation Information Evaluation Date 02/18/25 PT-OP-B Current Condition Start: 02/18/25 12:52 Freq: Status: Active Protocol: Document 02/18/25 12:15 DCW (Rec: 02/18/25 13:44 DCW [id number]) Current Condition History of Current Condition Onset Date 11/03/13 Current Complaints s/p CVA, decreased gait, poor balance, weakness History of Current Condition Pt is a 68 year old male who is 11 years s/p CVA which severe right-sided hemiplegia. Pt has been seen at this facility off and on since his CVA, was varying levels of success. Often work on balance , gait, strength, activity tolerance, and functional mobility, and will see some improvement in areas, however there is usually minimal carry -over at home, and pt will frequently hit a plateau, discharge, and then return to PT following a decline in function. Pt is largely non- verbal since his CVA. His reports at today's evaluation that his walking has declined in quality and in speed, and he is much shakier when first standing up. Pt has a left- sided weight-shift to unload hemiplegic right side. Additionally has recently been found to have some fluid around his lungs, has an upcoming appointment in pulmonary. Pt typically not especially thrilled with the idea of PT, but will generally do what is requested. PT-OP-C Subjective Start: 02/18/25 12:52 Freq: Status: Active Protocol: Document 02/18/25 12:15 DCW (Rec: 02/18/25 12:59 DCW [id number]) OP-PT Subjective Patient Comments Patient Comments Pt's attends session, notes pt has been quite a bit slower. Was found to have some edema around his lungs, has been breathing a little heavier. Seeing pulmonary next week. PT-OP-D Balance Start: 02/18/25 12:52 Freq: Status: Active Protocol: Document 02/18/25 12:15 DCW (Rec: 02/18/25 12:59 DCW [id number]) Tinetti Balance Assessment Sitting Balance Sitting Balance Steady, safe Arising from Chair Ability to Arise Able, uses arms to help Attempts to Arise Arises on 1st attempt Standing Balance Immediate Standing Balance Steady with support Standing Balance Steady, wide stance Nudged Response Staggers, catches self Standing with Eyes Closed Steady Turning Step Pattern Turning 360 Degrees Discontinuous steps Stability Turning 360 Degrees Unsteady, grabs/staggers Sitting Down Sitting Down Uses arms or unsteady Gait and Step Initiation of Gait No hesitancy Right Foot Step Length Does pass stance foot Right Foot Step Height Does not clear floor Left Foot Step Length Does not pass stance foot Left Foot Step Height Completely clears floor Step Description Step Symmetry Step length not equal Step Continuity Stopping or discontinuity Gait Description Path Description Mild/moderate deviation Trunk Description Marked sway or uses aide Walking Stance Heels together Scoring and Interpretation Tinetti Composite Score (points) 14 Interpretation of Scores High risk for falls(< 19) Tinetti Impairment Rating from Composite 40 to <60% Impaired (Score 12- Score 16) PT-OP-E Functional Tests Start: 02/18/25 12:52 Freq: Status: Active Protocol: Document 02/18/25 12:15 DCW (Rec: 02/18/25 12:59 DCW [id number]) Functional Tests 2 Minute Walk Test Distance 86' Device Used [facility] 30 Second Sit to Stand Test Score x6 repetitions Timed Up and Go (TUG) Score 41.33 Comments [facility] PT-OP-G Mobility & Gait Start: 02/18/25 12:52 Freq: Status: Active Protocol: Document 02/18/25 12:15 DCW (Rec: 02/18/25 16:04 DCW [id number]) OP Gait Assessment Gait Gait Assistance Required: Standby Assistance Distance (Feet) 86 Assistive Devices Assistive Device Large Based Quad Cane Orthotic/Prosthetic Devices or Brace: Yes Gait Deviations General Gait Pattern Ataxic,Decreased Stride Length ,Decreased Feet Clearance, Flexed Trunk,Lateral Trunk Lean,Narrow Based Gait,Step-to Gait Factors Limiting Gait Function Factors Limiting Gait Function Decreased Activity Tolerance, Decreased Strength, Incoordination,Limited Range of Motion,Pain,Poor Balance, Poor Safety Awareness PT-OP-M Strength Start: 02/18/25 12:52 Freq: Status: Active Protocol: Document 02/18/25 12:15 DCW (Rec: 02/18/25 16:04 DCW [id number]) Hip Strength Hip Manual Muscle Testing Right Flexion (L2) 3- Fair- Extension (S1) 4- Good- Abduction 3- Fair- Adduction 3- Fair- Left Flexion (L2) 5 Normal Extension (S1) 4+ Good+ Abduction 4 Good Adduction 4 Good Knee Strength Knee Manual Muscle Testing Right Flexion (S2) 2- Poor- Extension (L3) 3- Fair- Left Flexion (S2) 5 Normal Extension (L3) 5 Normal PT-OP-T Assessment and Plan Start: 02/18/25 12:52 Freq: Status: Active Protocol: Document 02/18/25 12:15 DCW (Rec: 02/18/25 16:04 DCW [id number]) Physical Therapy Assessment Rehab Potential Rehabilitation Potential Fair Evaluation Complexity Number of Personal Factors/Comorbidities 3 or More Number of Body Systems Impaired 4 or More Clinical Presentation at Evaluation Unstable Impairments Impairments Activity Tolerance,Balance, Coordination,Functional Activities,Functional Mobility ,Gait,ROM,Strength,Tone Goals Three Impairment Pt Tinetti score of 14/26 indicates an increased risk of falls Product Development Specialist Goal (LTG) Pt to improve Tinetti score by at least five points to 19/28 in order to demonstrate a reduction in falls risk. LTG Duration 05/19/25 Two Impairment Pt performs six repetitions during 30 second Sit to Stand Product Development Specialist Goal (LTG) Pt to improve repetitions during 30sStS by at least four to x10 repetitions in order to demonstrate improved activity tolerance LTG Duration 05/19/25 One Impairment Pt does not have an appropriate home exercise program Short Term Goal (STG) Pt to be independent and compliant with an appropriate HEP STG Duration 03/20/25 Assessment Summary Assessment Pt presents with signs and symptoms consistent with referring diagnosis. Pt continues to exhibit right hemiplegia, decreased activity tolerance, difficulty with gait and balance, falls risk, and weakness. Pt has declined some since he was last treated in this clinic. 30sStS score has decreased from 10 repetitions to 6. Pt appears to exhibit increased fatigue with activity, and unsteadiness upon first standing. Score of 14/28 on the Tinetti indicates a high risk of falls. Pt may benefit from skilled therapeutic intervention focusing on balance, strength, and activity tolerance. Physical Therapy Plan Frequency and Duration Frequency of Treatment 2x/Week Plan of Care Start Date 02/18/25 Plan of Care End Date 05/19/25 Therapeutic Interventions Therapeutic Interventions Balance Training,Gait Training ,Home Exercise Program,Manual Therapy,Neuromuscular Re- education Next Visit Focus/Plan Next Note Type Treatment Note Next Visit Plan Balance, gait, activity tolerance, strengthening
--- NOTE | 2025-02-18 16:05 | PT.OPPOC ---
Physical, Occupational & Speech Therapy At [facility] 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 (02/18/25) Personal history of transient ischemic attack (TIA), and cerebral infarction without residual deficits (02/18/25) Visit Care Team Role Provider Type Delfino Epstein MD Attending Provider Physician Family Provider Primary Care Provider Referring Provider Specialty: [facility] Practice Address: [address] [place] [address], [address], [facility] Email: [email or web address] Plan Of Care PT-OP-B Current Condition Start: 02/18/25 12:52 Freq: Status: Active Protocol: Document 02/18/25 12:15 DCW (Rec: 02/18/25 13:44 DCW [id number]) Current Condition History of Current Condition Onset Date 11/03/13 Current Complaints s/p CVA, decreased gait, poor balance, weakness History of Current Condition Pt is a 68 year old male who is 11 years s/p CVA which severe right-sided hemiplegia. Pt has been seen at this facility off and on since his CVA, was varying levels of success. Often work on balance , gait, strength, activity tolerance, and functional mobility, and will see some improvement in areas, however there is usually minimal carry -over at home, and pt will frequently hit a plateau, discharge, and then return to PT following a decline in function. Pt is largely non- verbal since his CVA. His reports at today's evaluation that his walking has declined in quality and in speed, and he is much shakier when first standing up. Pt has a left- sided weight-shift to unload hemiplegic right side. Additionally has recently been found to have some fluid around his lungs, has an upcoming appointment in pulmonary. Pt typically not especially thrilled with the idea of PT, but will generally do what is requested. PT-OP-T Assessment and Plan Start: 02/18/25 12:52 Freq: Status: Active Protocol: Document 02/18/25 12:15 DCW (Rec: 02/18/25 16:04 DCW [id number]) Physical Therapy Assessment Rehab Potential Rehabilitation Potential Fair Evaluation Complexity Number of Personal Factors/Comorbidities 3 or More Number of Body Systems Impaired 4 or More Clinical Presentation at Evaluation Unstable Impairments Impairments Activity Tolerance,Balance, Coordination,Functional Activities,Functional Mobility ,Gait,ROM,Strength,Tone Goals Three Impairment Pt Tinetti score of 14/26 indicates an increased risk of falls Half-Way Goal (LTG) Pt to improve Tinetti score by at least five points to 19/28 in order to demonstrate a reduction in falls risk. LTG Duration 05/19/25 Two Impairment Pt performs six repetitions during 30 second Sit to Stand Test Preparation Tutor Goal (LTG) Pt to improve repetitions during 30sStS by at least four to x10 repetitions in order to demonstrate improved activity tolerance LTG Duration 05/19/25 One Impairment Pt does not have an appropriate home exercise program Short Term Goal (STG) Pt to be independent and compliant with an appropriate HEP STG Duration 03/20/25 Assessment Summary Assessment Pt presents with signs and symptoms consistent with referring diagnosis. Pt continues to exhibit right hemiplegia, decreased activity tolerance, difficulty with gait and balance, falls risk, and weakness. Pt has declined some since he was last treated in this clinic. 30sStS score has decreased from 10 repetitions to 6. Pt appears to exhibit increased fatigue with activity, and unsteadiness upon first standing. Score of 14/28 on the Tinetti indicates a high risk of falls. Pt may benefit from skilled therapeutic intervention focusing on balance, strength, and activity tolerance. Physical Therapy Plan Frequency and Duration Frequency of Treatment 2x/Week Plan of Care Start Date 02/18/25 Plan of Care End Date 05/19/25 Therapeutic Interventions Therapeutic Interventions Balance Training,Gait Training ,Home Exercise Program,Manual Therapy,Neuromuscular Re- education Next Visit Focus/Plan Next Note Type Treatment Note Next Visit Plan Balance, gait, activity tolerance, strengthening Plan of Care Dates Plan of Care Start Date 02/18/25 Plan of Care End Date 05/19/25 Electronically Signed by: Jefferson Ceron, PT 02/18/25 [id number] If you are in agreement with this Plan of Care, please return a signed and dated copy. I have reviewed this Plan of Care and certify that the skilled therapy services above are required to meet the patient?s needs. Physician Signature Date Printed Name and Credentials Clinical Instructor Signature Printed Name and Credentials
--- NOTE | 2025-02-25 13:01 | PT.OTN ---
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 (02/25/25) Personal history of transient ischemic attack (TIA), and cerebral infarction without residual deficits (02/25/25) Physical Therapy Treatment Note PT-OP-A Visit Information Start: 02/18/25 12:52 Freq: Status: Active Protocol: Document 02/25/25 12:15 DCW (Rec: 02/25/25 12:56 DCW [id number]) Out-Patient Physical Therapy Visit Information Visit Information Visit Type Treatment Note Visit Start Time 12:15 Visit Stop Time 13:00 Visit Number 2 Number of SOLDERER ASSEMBLY REPAIR Visits 0 Evaluation Information Evaluation Date 02/18/25 PT-OP-B Current Condition Start: 02/18/25 12:52 Freq: Status: Active Protocol: Document 02/18/25 12:15 DCW (Rec: 02/18/25 13:44 DCW [id number]) Current Condition History of Current Condition Onset Date 11/03/13 Current Complaints s/p CVA, decreased gait, poor balance, weakness History of Current Condition Pt is a 68 year old male who is 11 years s/p CVA which severe right-sided hemiplegia. Pt has been seen at this facility off and on since his CVA, was varying levels of success. Often work on balance , gait, strength, activity tolerance, and functional mobility, and will see some improvement in areas, however there is usually minimal carry -over at home, and pt will frequently hit a plateau, discharge, and then return to PT following a decline in function. Pt is largely non- verbal since his CVA. His reports at today's evaluation that his walking has declined in quality and in speed, and he is much shakier when first standing up. Pt has a left- sided weight-shift to unload hemiplegic right side. Additionally has recently been found to have some fluid around his lungs, has an upcoming appointment in pulmonary. Pt typically not especially thrilled with the idea of PT, but will generally do what is requested. PT-OP-C Subjective Start: 02/18/25 12:52 Freq: Status: Active Protocol: Document 02/25/25 12:15 DCW (Rec: 02/25/25 12:56 DCW [id number]) OP-PT Subjective Patient Comments Patient Comments Pt's notes he is in a good mood today, PT-OP-D Balance Start: 02/18/25 12:52 Freq: Status: Active Protocol: Document 02/18/25 12:15 DCW (Rec: 02/18/25 12:59 DCW [id number]) Tinetti Balance Assessment Sitting Balance Sitting Balance Steady, safe Arising from Chair Ability to Arise Able, uses arms to help Attempts to Arise Arises on 1st attempt Standing Balance Immediate Standing Balance Steady with support Standing Balance Steady, wide stance Nudged Response Staggers, catches self Standing with Eyes Closed Steady Turning Step Pattern Turning 360 Degrees Discontinuous steps Stability Turning 360 Degrees Unsteady, grabs/staggers Sitting Down Sitting Down Uses arms or unsteady Gait and Step Initiation of Gait No hesitancy Right Foot Step Length Does pass stance foot Right Foot Step Height Does not clear floor Left Foot Step Length Does not pass stance foot Left Foot Step Height Completely clears floor Step Description Step Symmetry Step length not equal Step Continuity Stopping or discontinuity Gait Description Path Description Mild/moderate deviation Trunk Description Marked sway or uses aide Walking Stance Heels together Scoring and Interpretation Tinetti Composite Score (points) 14 Interpretation of Scores High risk for falls(< 19) Tinetti Impairment Rating from Composite 40 to <60% Impaired (Score 12- Score 16) PT-OP-E Functional Tests Start: 02/18/25 12:52 Freq: Status: Active Protocol: Document 02/18/25 12:15 DCW (Rec: 02/18/25 12:59 NYW [id number]) Functional Tests 2 Minute Walk Test Distance 86' Device Used [facility] 30 Second Sit to Stand Test Score x6 repetitions Timed Up and Go (TUG) Score 41.33 Comments [facility] PT-OP-G Mobility & Gait Start: 02/18/25 12:52 Freq: Status: Active Protocol: Document 02/18/25 12:15 DCW (Rec: 02/18/25 16:04 DCW [id number]) OP Gait Assessment Gait Gait Assistance Required: Standby Assistance Distance (Feet) 86 Assistive Devices Assistive Device Large Based Quad Cane Orthotic/Prosthetic Devices or Brace: Yes Gait Deviations General Gait Pattern Ataxic,Decreased Stride Length ,Decreased Feet Clearance, Flexed Trunk,Lateral Trunk Lean,Narrow Based Gait,Step-to Gait Factors Limiting Gait Function Factors Limiting Gait Function Decreased Activity Tolerance, Decreased Strength, Incoordination,Limited Range of Motion,Pain,Poor Balance, Poor Safety Awareness PT-OP-M Strength Start: 02/18/25 12:52 Freq: Status: Active Protocol: Document 02/18/25 12:15 DCW (Rec: 02/18/25 16:04 DCW [id number]) Hip Strength Hip Manual Muscle Testing Right Flexion (L2) 3- Fair- Extension (S1) 4- Good- Abduction 3- Fair- Adduction 3- Fair- Left Flexion (L2) 5 Normal Extension (S1) 4+ Good+ Abduction 4 Good Adduction 4 Good Knee Strength Knee Manual Muscle Testing Right Flexion (S2) 2- Poor- Extension (L3) 3- Fair- Left Flexion (S2) 5 Normal Extension (L3) 5 Normal PT-OP-Q Treatments Start: 02/18/25 12:52 Freq: Status: Active Protocol: Document 02/25/25 12:15 DCW (Rec: 02/25/25 12:56 DCW [id number]) Cardio Equipment Recumbent Stepper (Sci-Fit) Duration (Minutes) 6 Resistance 3 Seat Position 9 Other NuStep Therapeutic Exercises Sitting Exercises LAQ Sitting Exercise Name LAQ Side bilateral Resistance 4# Other Exercises Toe Taps Other Exercise Name Toe Taps Side bilateral Resistance 4# Equipment Used 6 step Comments Standing, then seated, VCs to stop UE assistance on R LE Neuro Re-Education Treatment Balance Activities Foam Details NBOS (EO/EC) Tandem Details Tandem stance Equipment // bars PT-OP-T Assessment and Plan Start: 02/18/25 12:52 Freq: Status: Active Protocol: Document 02/25/25 12:15 DCW (Rec: 02/25/25 13:01 DCW [id number]) Physical Therapy Assessment Impairments Impairments Activity Tolerance,Balance, Coordination,Functional Activities,Functional Mobility ,Gait,ROM,Strength,Tone Goals Three Impairment Pt Tinetti score of 14/26 indicates an increased risk of falls Usp Goal (LTG) Pt to improve Tinetti score by at least five points to 19/28 in order to demonstrate a reduction in falls risk. LTG Duration 05/19/25 Two Impairment Pt performs six repetitions during 30 second Sit to Stand Usp Goal (LTG) Pt to improve repetitions during 30sStS by at least four to x10 repetitions in order to demonstrate improved activity tolerance LTG Duration 05/19/25 One Impairment Pt does not have an appropriate home exercise program Short Term Goal (STG) Pt to be independent and compliant with an appropriate HEP STG Duration 03/20/25 Assessment Summary Assessment Pt fatigued through the right side with may activities today , but did well continuing to work through fatigue. did well with balance challenges today . Continue focus on balance, strengthening, and improving activity tolerance Physical Therapy Plan Frequency and Duration Frequency of Treatment 2x/Week Plan of Care Start Date 02/18/25 Plan of Care End Date 05/19/25 Therapeutic Interventions Therapeutic Interventions Balance Training,Gait Training ,Home Exercise Program,Manual Therapy,Neuromuscular Re- education Next Visit Focus/Plan Next Note Type Treatment Note Next Visit Plan Balance, gait, activity tolerance, strengthening
--- NOTE | 2025-03-02 13:01 | PT.OTN ---
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 (03/02/25) Personal history of transient ischemic attack (TIA), and cerebral infarction without residual deficits (03/02/25) Physical Therapy Treatment Note PT-OP-A Visit Information Start: 02/18/25 12:52 Freq: Status: Active Protocol: Document 03/02/25 12:15 DCW (Rec: 03/02/25 13:00 DCW [id number]) Out-Patient Physical Therapy Visit Information Visit Information Visit Type Treatment Note Visit Start Time 12:15 Visit Stop Time 13:00 Visit Number 3 Number of SIFTER OPERATOR Visits 0 Evaluation Information Evaluation Date 02/18/25 PT-OP-B Current Condition Start: 02/18/25 12:52 Freq: Status: Active Protocol: Document 02/18/25 12:15 DCW (Rec: 02/18/25 13:44 DCW [id number]) Current Condition History of Current Condition Onset Date 11/03/13 Current Complaints s/p CVA, decreased gait, poor balance, weakness History of Current Condition Pt is a 68 year old male who is 11 years s/p CVA which severe right-sided hemiplegia. Pt has been seen at this facility off and on since his CVA, was varying levels of success. Often work on balance , gait, strength, activity tolerance, and functional mobility, and will see some improvement in areas, however there is usually minimal carry -over at home, and pt will frequently hit a plateau, discharge, and then return to PT following a decline in function. Pt is largely non- verbal since his CVA. His reports at today's evaluation that his walking has declined in quality and in speed, and he is much shakier when first standing up. Pt has a left- sided weight-shift to unload hemiplegic right side. Additionally has recently been found to have some fluid around his lungs, has an upcoming appointment in pulmonary. Pt typically not especially thrilled with the idea of PT, but will generally do what is requested. PT-OP-C Subjective Start: 02/18/25 12:52 Freq: Status: Active Protocol: Document 03/02/25 12:15 DCW (Rec: 03/02/25 13:00 DCW [id number]) OP-PT Subjective Patient Comments Patient Comments Pt indicates he is feeling good today PT-OP-D Balance Start: 02/18/25 12:52 Freq: Status: Active Protocol: Document 02/18/25 12:15 DCW (Rec: 02/18/25 12:59 NEW [id number]) Tinetti Balance Assessment Sitting Balance Sitting Balance Steady, safe Arising from Chair Ability to Arise Able, uses arms to help Attempts to Arise Arises on 1st attempt Standing Balance Immediate Standing Balance Steady with support Standing Balance Steady, wide stance Nudged Response Staggers, catches self Standing with Eyes Closed Steady Turning Step Pattern Turning 360 Degrees Discontinuous steps Stability Turning 360 Degrees Unsteady, grabs/staggers Sitting Down Sitting Down Uses arms or unsteady Gait and Step Initiation of Gait No hesitancy Right Foot Step Length Does pass stance foot Right Foot Step Height Does not clear floor Left Foot Step Length Does not pass stance foot Left Foot Step Height Completely clears floor Step Description Step Symmetry Step length not equal Step Continuity Stopping or discontinuity Gait Description Path Description Mild/moderate deviation Trunk Description Marked sway or uses aide Walking Stance Heels together Scoring and Interpretation Tinetti Composite Score (points) 14 Interpretation of Scores High risk for falls(< 19) Tinetti Impairment Rating from Composite 40 to <60% Impaired (Score 12- Score 16) PT-OP-E Functional Tests Start: 02/18/25 12:52 Freq: Status: Active Protocol: Document 02/18/25 12:15 DCW (Rec: 02/18/25 12:59 DCW [id number]) Functional Tests 2 Minute Walk Test Distance 86' Device Used [facility] 30 Second Sit to Stand Test Score x6 repetitions Timed Up and Go (TUG) Score 41.33 Comments [facility] PT-OP-G Mobility & Gait Start: 02/18/25 12:52 Freq: Status: Active Protocol: Document 02/18/25 12:15 DCW (Rec: 02/18/25 16:04 DCW [id number]) OP Gait Assessment Gait Gait Assistance Required: Standby Assistance Distance (Feet) 86 Assistive Devices Assistive Device Large Based Quad Cane Orthotic/Prosthetic Devices or Brace: Yes Gait Deviations General Gait Pattern Ataxic,Decreased Stride Length ,Decreased Feet Clearance, Flexed Trunk,Lateral Trunk Lean,Narrow Based Gait,Step-to Gait Factors Limiting Gait Function Factors Limiting Gait Function Decreased Activity Tolerance, Decreased Strength, Incoordination,Limited Range of Motion,Pain,Poor Balance, Poor Safety Awareness PT-OP-M Strength Start: 02/18/25 12:52 Freq: Status: Active Protocol: Document 02/18/25 12:15 DCW (Rec: 02/18/25 16:04 DCW [id number]) Hip Strength Hip Manual Muscle Testing Right Flexion (L2) 3- Fair- Extension (S1) 4- Good- Abduction 3- Fair- Adduction 3- Fair- Left Flexion (L2) 5 Normal Extension (S1) 4+ Good+ Abduction 4 Good Adduction 4 Good Knee Strength Knee Manual Muscle Testing Right Flexion (S2) 2- Poor- Extension (L3) 3- Fair- Left Flexion (S2) 5 Normal Extension (L3) 5 Normal PT-OP-Q Treatments Start: 02/18/25 12:52 Freq: Status: Active Protocol: Document 03/02/25 12:15 DCW (Rec: 03/02/25 13:00 DCW [id number]) Cardio Equipment Recumbent Stepper (Sci-Fit) Duration (Minutes) 6 Resistance 4 Seat Position 9 Other NuStep Gym Equipment Shuttle Balance red clips Details Staggered Stance Neuro Re-Education Treatment Balance Activities Cones Details Cone Taps Hurdles Details Hurdles Equipment // bars Foam Details NBOS (EO/EC) Tandem Details Tandem stance Equipment // bars PT-OP-T Assessment and Plan Start: 02/18/25 12:52 Freq: Status: Active Protocol: Document 03/02/25 12:15 DCW (Rec: 03/02/25 13:00 DCW [id number]) Physical Therapy Assessment Impairments Impairments Activity Tolerance,Balance, Coordination,Functional Activities,Functional Mobility ,Gait,ROM,Strength,Tone Goals Three Impairment Pt Tinetti score of 14/26 indicates an increased risk of falls Longterm Goal (LTG) Pt to improve Tinetti score by at least five points to 19/28 in order to demonstrate a reduction in falls risk. LTG Duration 05/19/25 Two Impairment Pt performs six repetitions during 30 second Sit to Stand Longterm Goal (LTG) Pt to improve repetitions during 30sStS by at least four to x10 repetitions in order to demonstrate improved activity tolerance LTG Duration 05/19/25 One Impairment Pt does not have an appropriate home exercise program Short Term Goal (STG) Pt to be independent and compliant with an appropriate HEP STG Duration 03/20/25 Assessment Summary Assessment Good response to treatment today, pt showing some improved activity tolerance, fewer rest breaks. Continue focus on strength, gait, balance, and activity tolerance. Physical Therapy Plan Frequency and Duration Frequency of Treatment 2x/Week Plan of Care Start Date 02/18/25 Plan of Care End Date 05/19/25 Therapeutic Interventions Therapeutic Interventions Balance Training,Gait Training ,Home Exercise Program,Manual Therapy,Neuromuscular Re- education Next Visit Focus/Plan Next Note Type Treatment Note Next Visit Plan Balance, gait, activity tolerance, strengthening
--- NOTE | 2025-03-08 15:15 | PT.OTN ---
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 (03/08/25) Personal history of transient ischemic attack (TIA), and cerebral infarction without residual deficits (03/08/25) Physical Therapy Treatment Note PT-OP-A Visit Information Start: 02/18/25 12:52 Freq: Status: Active Protocol: Document 03/08/25 14:33 SP (Rec: 03/08/25 16:03 SP [id number]) Out-Patient Physical Therapy Visit Information Visit Information Visit Type Treatment Note Visit Note SOLO Alexander observed tx with permission of pt. observed from a far. Visit Start Time 14:33 Visit Stop Time 15:15 Visit Number 4 Number of HUMAN RESOURCES OPERATIONS DIRECTOR Visits 1 Evaluation Information Evaluation Date 02/18/25 PT-OP-B Current Condition Start: 02/18/25 12:52 Freq: Status: Active Protocol: Document 02/18/25 12:15 DCW (Rec: 02/18/25 13:44 DCW [id number]) Current Condition History of Current Condition Onset Date 11/03/13 Current Complaints s/p CVA, decreased gait, poor balance, weakness History of Current Condition Pt is a 68 year old male who is 11 years s/p CVA which severe right-sided hemiplegia. Pt has been seen at this facility off and on since his CVA, was varying levels of success. Often work on balance , gait, strength, activity tolerance, and functional mobility, and will see some improvement in areas, however there is usually minimal carry -over at home, and pt will frequently hit a plateau, discharge, and then return to PT following a decline in function. Pt is largely non- verbal since his CVA. His reports at today's evaluation that his walking has declined in quality and in speed, and he is much shakier when first standing up. Pt has a left- sided weight-shift to unload hemiplegic right side. Additionally has recently been found to have some fluid around his lungs, has an upcoming appointment in pulmonary. Pt typically not especially thrilled with the idea of PT, but will generally do what is requested. PT-OP-C Subjective Start: 02/18/25 12:52 Freq: Status: Active Protocol: Document 03/08/25 14:33 SP (Rec: 03/08/25 16:03 SP [id number]) OP-PT Subjective Patient Comments Patient Comments Pt indicates he is feeling good today, agreeable to allowing SOLO Alexander to attend appt. PT-OP-D Balance Start: 02/18/25 12:52 Freq: Status: Active Protocol: Document 02/18/25 12:15 DCW (Rec: 02/18/25 12:59 DCW [id number]) Tinetti Balance Assessment Sitting Balance Sitting Balance Steady, safe Arising from Chair Ability to Arise Able, uses arms to help Attempts to Arise Arises on 1st attempt Standing Balance Immediate Standing Balance Steady with support Standing Balance Steady, wide stance Nudged Response Staggers, catches self Standing with Eyes Closed Steady Turning Step Pattern Turning 360 Degrees Discontinuous steps Stability Turning 360 Degrees Unsteady, grabs/staggers Sitting Down Sitting Down Uses arms or unsteady Gait and Step Initiation of Gait No hesitancy Right Foot Step Length Does pass stance foot Right Foot Step Height Does not clear floor Left Foot Step Length Does not pass stance foot Left Foot Step Height Completely clears floor Step Description Step Symmetry Step length not equal Step Continuity Stopping or discontinuity Gait Description Path Description Mild/moderate deviation Trunk Description Marked sway or uses aide Walking Stance Heels together Scoring and Interpretation Tinetti Composite Score (points) 14 Interpretation of Scores High risk for falls(< 19) Tinetti Impairment Rating from Composite 40 to <60% Impaired (Score 12- Score 16) PT-OP-E Functional Tests Start: 02/18/25 12:52 Freq: Status: Active Protocol: Document 02/18/25 12:15 DCW (Rec: 02/18/25 12:59 DCW [id number]) Functional Tests 2 Minute Walk Test Distance 86' Device Used [facility] 30 Second Sit to Stand Test Score x6 repetitions Timed Up and Go (TUG) Score 41.33 Comments [facility] PT-OP-G Mobility & Gait Start: 02/18/25 12:52 Freq: Status: Active Protocol: Document 02/18/25 12:15 DCW (Rec: 02/18/25 16:04 DCW [id number]) OP Gait Assessment Gait Gait Assistance Required: Standby Assistance Distance (Feet) 86 Assistive Devices Assistive Device Large Based Quad Cane Orthotic/Prosthetic Devices or Brace: Yes Gait Deviations General Gait Pattern Ataxic,Decreased Stride Length ,Decreased Feet Clearance, Flexed Trunk,Lateral Trunk Lean,Narrow Based Gait,Step-to Gait Factors Limiting Gait Function Factors Limiting Gait Function Decreased Activity Tolerance, Decreased Strength, Incoordination,Limited Range of Motion,Pain,Poor Balance, Poor Safety Awareness PT-OP-M Strength Start: 02/18/25 12:52 Freq: Status: Active Protocol: Document 02/18/25 12:15 DCW (Rec: 02/18/25 16:04 DCW [id number]) Hip Strength Hip Manual Muscle Testing Right Flexion (L2) 3- Fair- Extension (S1) 4- Good- Abduction 3- Fair- Adduction 3- Fair- Left Flexion (L2) 5 Normal Extension (S1) 4+ Good+ Abduction 4 Good Adduction 4 Good Knee Strength Knee Manual Muscle Testing Right Flexion (S2) 2- Poor- Extension (L3) 3- Fair- Left Flexion (S2) 5 Normal Extension (L3) 5 Normal PT-OP-Q Treatments Start: 02/18/25 12:52 Freq: Status: Active Protocol: Document 03/08/25 14:33 SP (Rec: 03/08/25 16:03 SP [id number]) Cardio Equipment Recumbent Elliptical ([employer]) Duration (Minutes) 5 Resistance 5 Seat Position see 9 Other left UE/ ralph LE's: ~40 rp, 348 steps Recumbent Stepper (Sci-Fit) Duration (Minutes) 6 Resistance 4 Seat Position 9 Other NuStep: MINNA& Emelyn, 82-83 SPM Recumbent Bicycle Duration (Minutes) 5 Resistance 4 Seat Position 9 Gym Equipment Shuttle Recovery Unilateral Squats Details Tactile cue knee alignment R, Resistance 25 Teal Reps/Time X7 R (decreased reps due to pain R knee &pointingfascial scrunching), x15 L Bilateral Squats Details ball between knees Resistance 50# 2 navy ands Reps/Time 15 X2 with tapping to facilitate R quad Shuttle Balance red clips Details Staggered Stance Therapeutic Exercises Sitting Exercises Hip Abduction Sitting Exercise Name Seated clamshell Side bilateral Resistance GTB Reps/Minutes 10 reps L, Isometric 3 SH x10 R Comments tactile cue to R VL for engagment- noted engagment and muscle flickering. LAQ Sitting Exercise Name LAQ Side bilateral Resistance 5# leg wt Equipment Used therapist hand target kick to, improved range L>R Reps/Minutes x10 reps L, AROM R (CARY wedge under thigh)- Mesh chair Comments occ tactile cues to R quad Manual Therapy Treatment Consent Patient gave verbal consent for manual Yes treatment Soft Tissue Mobilization RLE Body Location quad Mobilization Type Myofascial Release,Rolling Intensity/Depth Moderate Body Position Sitting Comments gentle STMs: post standing to due spasming during SLS cone taps. Neuro Re-Education Treatment Balance Activities Cones Details Cone Taps-RLE only Surface AROM, floor Equipment L UE heavy on L HR Reps/Duration verbal and tactile cues for RLe to which of 3 cones. Comments Cued upright posture elbow more into extension for alignment and WB support. PT-OP-T Assessment and Plan Start: 02/18/25 12:52 Freq: Status: Active Protocol: Document 03/08/25 14:33 SP (Rec: 03/08/25 16:03 SP [id number]) Physical Therapy Assessment Goals Three Impairment Pt Tinetti score of 14/26 indicates an increased risk of falls Hrbp Goal (LTG) Pt to improve Tinetti score by at least five points to 19/28 in order to demonstrate a reduction in falls risk. LTG Duration 05/19/25 Two Impairment Pt performs six repetitions during 30 second Sit to Stand Long-Term Goal (LTG) Pt to improve repetitions during 30sStS by at least four to x10 repetitions in order to demonstrate improved activity tolerance LTG Duration 05/19/25 One Impairment Pt does not have an appropriate home exercise program Short Term Goal (STG) Pt to be independent and compliant with an appropriate HEP STG Duration 03/20/25 Assessment Summary Assessment Pt tolerated increased resistance ralph on shuttle recovery and LLE LAQ today but had to reduce reps. Was able to perform AROM RLE LAQ with tactile target feedback and CARY under thigh to allow foot clearance, Max 10 reps. Limited standing cone taps due to R quad spasming needed to sit and rest with provided manual to recover. Physical Therapy Plan Frequency and Duration Frequency of Treatment 2x/Week Plan of Care Start Date 02/18/25 Plan of Care End Date 05/19/25 Therapeutic Interventions Therapeutic Interventions Balance Training,Gait Training ,Home Exercise Program,Manual Therapy,Neuromuscular Re- education Next Visit Focus/Plan Next Note Type Treatment Note Next Visit Plan Balance, gait, activity tolerance, strengthening
--- NOTE | 2025-03-11 12:14 | PT.OTN ---
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 (03/11/25) Personal history of transient ischemic attack (TIA), and cerebral infarction without residual deficits (03/11/25) Physical Therapy Treatment Note PT-OP-A Visit Information Start: 02/18/25 12:52 Freq: Status: Active Protocol: Document 03/11/25 11:34 PG (Rec: 03/11/25 12:33 PG Laptop) Out-Patient Physical Therapy Visit Information Visit Information Visit Type Treatment Note Visit Note GOYOACatherine led tx w permission of pt and direct supervision of Lupe LINDSEY. Visit Start Time 11:34 Visit Stop Time 12:14 Visit Number 5 Number of FUEL EFFICIENT AUTOMOBILE DESIGNER Visits 2 Evaluation Information Evaluation Date 02/18/25 PT-OP-B Current Condition Start: 02/18/25 12:52 Freq: Status: Active Protocol: Document 02/18/25 12:15 DCW (Rec: 02/18/25 13:44 DCW [id number]) Current Condition History of Current Condition Onset Date 11/03/13 Current Complaints s/p CVA, decreased gait, poor balance, weakness History of Current Condition Pt is a 68 year old male who is 11 years s/p CVA which severe right-sided hemiplegia. Pt has been seen at this facility off and on since his CVA, was varying levels of success. Often work on balance , gait, strength, activity tolerance, and functional mobility, and will see some improvement in areas, however there is usually minimal carry -over at home, and pt will frequently hit a plateau, discharge, and then return to PT following a decline in function. Pt is largely non- verbal since his CVA. His reports at today's evaluation that his walking has declined in quality and in speed, and he is much shakier when first standing up. Pt has a left- sided weight-shift to unload hemiplegic right side. Additionally has recently been found to have some fluid around his lungs, has an upcoming appointment in pulmonary. Pt typically not especially thrilled with the idea of PT, but will generally do what is requested. PT-OP-C Subjective Start: 02/18/25 12:52 Freq: Status: Active Protocol: Document 03/08/25 14:33 SP (Rec: 03/08/25 16:03 SP [id number]) OP-PT Subjective Patient Comments Patient Comments Pt indicates he is feeling good today, agreeable to allowing SOLO Alexander to attend appt. PT-OP-D Balance Start: 02/18/25 12:52 Freq: Status: Active Protocol: Document 02/18/25 12:15 DCW (Rec: 02/18/25 12:59 DCW [id number]) Tinetti Balance Assessment Sitting Balance Sitting Balance Steady, safe Arising from Chair Ability to Arise Able, uses arms to help Attempts to Arise Arises on 1st attempt Standing Balance Immediate Standing Balance Steady with support Standing Balance Steady, wide stance Nudged Response Staggers, catches self Standing with Eyes Closed Steady Turning Step Pattern Turning 360 Degrees Discontinuous steps Stability Turning 360 Degrees Unsteady, grabs/staggers Sitting Down Sitting Down Uses arms or unsteady Gait and Step Initiation of Gait No hesitancy Right Foot Step Length Does pass stance foot Right Foot Step Height Does not clear floor Left Foot Step Length Does not pass stance foot Left Foot Step Height Completely clears floor Step Description Step Symmetry Step length not equal Step Continuity Stopping or discontinuity Gait Description Path Description Mild/moderate deviation Trunk Description Marked sway or uses aide Walking Stance Heels together Scoring and Interpretation Tinetti Composite Score (points) 14 Interpretation of Scores High risk for falls(< 19) Tinetti Impairment Rating from Composite 40 to <60% Impaired (Score 12- Score 16) PT-OP-E Functional Tests Start: 02/18/25 12:52 Freq: Status: Active Protocol: Document 02/18/25 12:15 DCW (Rec: 02/18/25 12:59 DCW [id number]) Functional Tests 2 Minute Walk Test Distance 86' Device Used [facility] 30 Second Sit to Stand Test Score x6 repetitions Timed Up and Go (TUG) Score 41.33 Comments [facility] PT-OP-G Mobility & Gait Start: 02/18/25 12:52 Freq: Status: Active Protocol: Document 02/18/25 12:15 DCW (Rec: 02/18/25 16:04 DCW [id number]) OP Gait Assessment Gait Gait Assistance Required: Standby Assistance Distance (Feet) 86 Assistive Devices Assistive Device Large Based Quad Cane Orthotic/Prosthetic Devices or Brace: Yes Gait Deviations General Gait Pattern Ataxic,Decreased Stride Length ,Decreased Feet Clearance, Flexed Trunk,Lateral Trunk Lean,Narrow Based Gait,Step-to Gait Factors Limiting Gait Function Factors Limiting Gait Function Decreased Activity Tolerance, Decreased Strength, Incoordination,Limited Range of Motion,Pain,Poor Balance, Poor Safety Awareness PT-OP-M Strength Start: 02/18/25 12:52 Freq: Status: Active Protocol: Document 02/18/25 12:15 DCW (Rec: 02/18/25 16:04 DCW [id number]) Hip Strength Hip Manual Muscle Testing Right Flexion (L2) 3- Fair- Extension (S1) 4- Good- Abduction 3- Fair- Adduction 3- Fair- Left Flexion (L2) 5 Normal Extension (S1) 4+ Good+ Abduction 4 Good Adduction 4 Good Knee Strength Knee Manual Muscle Testing Right Flexion (S2) 2- Poor- Extension (L3) 3- Fair- Left Flexion (S2) 5 Normal Extension (L3) 5 Normal PT-OP-Q Treatments Start: 02/18/25 12:52 Freq: Status: Active Protocol: Document 03/11/25 11:34 PG (Rec: 03/11/25 12:33 PG Laptop) Cardio Equipment Recumbent Stepper (Sci-Fit) Duration (Minutes) 6 Resistance 4 > 5 for 30 sec's > 3 for 1 min Seat Position 9 Other NuStep: MINNA& Emelyn, 82-83 SPM Therapeutic Exercises Standing Exercises STS Standing Exercise Name STS Equipment Used mesh chair Reps/Minutes x4 Comments mod cues: reach back to chair for eccentric control Neuro Re-Education Treatment Balance Activities Hurdles Details Hurdles Equipment // bars Reps/Duration 2 laps Comments Step to gait pattern, cued for weight shifting into R LE and standing tall when in-between hurdles. Cued to lead with both LLE and RLE on the way back. Pt had difficulty leading with LLE due to increase SLS on RLE Foam Details NBOS, Head turns L/R up/dwn Equipment // bars Reps/Duration 30 sec's each Comments Brandon from [employer], cues to weight bear into both LE's. Pt used no UE support but L hand hovered over //bar. PT-OP-T Assessment and Plan Start: 02/18/25 12:52 Freq: Status: Active Protocol: Document 03/11/25 11:34 PG (Rec: 03/11/25 12:33 PG Laptop) Physical Therapy Assessment Impairments Impairments Activity Tolerance,Balance, Coordination,Functional Activities,Functional Mobility ,Gait,ROM,Strength,Tone Goals Three Impairment Pt Tinetti score of 14/26 indicates an increased risk of falls [facility] Goal (LTG) Pt to improve Tinetti score by at least five points to 19/28 in order to demonstrate a reduction in falls risk. LTG Duration 05/19/25 Two Impairment Pt performs six repetitions during 30 second Sit to Stand Commercial Hvac Service Technician Goal (LTG) Pt to improve repetitions during 30sStS by at least four to x10 repetitions in order to demonstrate improved activity tolerance LTG Duration 05/19/25 One Impairment Pt does not have an appropriate home exercise program Short Term Goal (STG) Pt to be independent and compliant with an appropriate HEP STG Duration 03/20/25 Assessment Summary Assessment Pt tolerated treatment well today. Instructed pt on walking through hurdles to work on hip flexion, balance and weight shifting between LE 's for improved stability and gait through the community. Pt demonstrates a step to gait pattern through the hurdles and is challenged when leading with LLE due to increased time in SLS on the RLE. Cued pt to stand tall and bear weight into both LE's equally between hurdles. Tactile cues used to help pt find midline. Physical Therapy Plan Frequency and Duration Frequency of Treatment 2x/Week Plan of Care Start Date 02/18/25 Plan of Care End Date 05/19/25 Therapeutic Interventions Therapeutic Interventions Balance Training,Gait Training ,Home Exercise Program,Manual Therapy,Neuromuscular Re- education Next Visit Focus/Plan Next Visit Plan Next: Assess how many STS in 30 seconds, balance shuttle. POC: Balance, gait, activity tolerance, strengthening
--- NOTE | 2025-03-16 14:32 | PT.OTN ---
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 (03/16/25) Personal history of transient ischemic attack (TIA), and cerebral infarction without residual deficits (03/16/25) Physical Therapy Treatment Note PT-OP-A Visit Information Start: 02/18/25 12:52 Freq: Status: Active Protocol: Document 03/16/25 13:45 PG (Rec: 03/16/25 14:54 PG [id number]) Out-Patient Physical Therapy Visit Information Visit Information Visit Type Treatment Note Visit Note GOYOACatherine led tx w permission of pt and direct supervision of Lupe LINDSEY Visit Start Time 13:45 Visit Stop Time 14:32 Visit Number 6 Number of RUBY SOFTWARE DEVELOPER Visits 3 PT-OP-B Current Condition Start: 02/18/25 12:52 Freq: Status: Active Protocol: Document 02/18/25 12:15 DCW (Rec: 02/18/25 13:44 DCW [id number]) Current Condition History of Current Condition Onset Date 11/03/13 Current Complaints s/p CVA, decreased gait, poor balance, weakness History of Current Condition Pt is a 68 year old male who is 11 years s/p CVA which severe right-sided hemiplegia. Pt has been seen at this facility off and on since his CVA, was varying levels of success. Often work on balance , gait, strength, activity tolerance, and functional mobility, and will see some improvement in areas, however there is usually minimal carry -over at home, and pt will frequently hit a plateau, discharge, and then return to PT following a decline in function. Pt is largely non- verbal since his CVA. His reports at today's evaluation that his walking has declined in quality and in speed, and he is much shakier when first standing up. Pt has a left- sided weight-shift to unload hemiplegic right side. Additionally has recently been found to have some fluid around his lungs, has an upcoming appointment in pulmonary. Pt typically not especially thrilled with the idea of PT, but will generally do what is requested. PT-OP-C Subjective Start: 02/18/25 12:52 Freq: Status: Active Protocol: Document 03/16/25 13:45 PG (Rec: 03/16/25 14:54 PG [id number]) OP-PT Subjective Patient Comments Patient Comments Pt indicates he is well. reports he has been short of breath lately and sometimes wheezing. Says he's usually able to relieve wheezing by taking a break and focusing on breathing. PT-OP-D Balance Start: 02/18/25 12:52 Freq: Status: Active Protocol: Document 02/18/25 12:15 DCW (Rec: 02/18/25 12:59 DCW [id number]) Tinetti Balance Assessment Sitting Balance Sitting Balance Steady, safe Arising from Chair Ability to Arise Able, uses arms to help Attempts to Arise Arises on 1st attempt Standing Balance Immediate Standing Balance Steady with support Standing Balance Steady, wide stance Nudged Response Staggers, catches self Standing with Eyes Closed Steady Turning Step Pattern Turning 360 Degrees Discontinuous steps Stability Turning 360 Degrees Unsteady, grabs/staggers Sitting Down Sitting Down Uses arms or unsteady Gait and Step Initiation of Gait No hesitancy Right Foot Step Length Does pass stance foot Right Foot Step Height Does not clear floor Left Foot Step Length Does not pass stance foot Left Foot Step Height Completely clears floor Step Description Step Symmetry Step length not equal Step Continuity Stopping or discontinuity Gait Description Path Description Mild/moderate deviation Trunk Description Marked sway or uses aide Walking Stance Heels together Scoring and Interpretation Tinetti Composite Score (points) 14 Interpretation of Scores High risk for falls(< 19) Tinetti Impairment Rating from Composite 40 to <60% Impaired (Score 12- Score 16) PT-OP-E Functional Tests Start: 02/18/25 12:52 Freq: Status: Active Protocol: Document 02/18/25 12:15 DCW (Rec: 02/18/25 12:59 DCW [id number]) Functional Tests 2 Minute Walk Test Distance 86' Device Used [facility] 30 Second Sit to Stand Test Score x6 repetitions Timed Up and Go (TUG) Score 41.33 Comments [facility] PT-OP-G Mobility & Gait Start: 02/18/25 12:52 Freq: Status: Active Protocol: Document 02/18/25 12:15 DCW (Rec: 02/18/25 16:04 DCW [id number]) OP Gait Assessment Gait Gait Assistance Required: Standby Assistance Distance (Feet) 86 Assistive Devices Assistive Device Large Based Quad Cane Orthotic/Prosthetic Devices or Brace: Yes Gait Deviations General Gait Pattern Ataxic,Decreased Stride Length ,Decreased Feet Clearance, Flexed Trunk,Lateral Trunk Lean,Narrow Based Gait,Step-to Gait Factors Limiting Gait Function Factors Limiting Gait Function Decreased Activity Tolerance, Decreased Strength, Incoordination,Limited Range of Motion,Pain,Poor Balance, Poor Safety Awareness PT-OP-M Strength Start: 02/18/25 12:52 Freq: Status: Active Protocol: Document 02/18/25 12:15 DCW (Rec: 02/18/25 16:04 DCW [id number]) Hip Strength Hip Manual Muscle Testing Right Flexion (L2) 3- Fair- Extension (S1) 4- Good- Abduction 3- Fair- Adduction 3- Fair- Left Flexion (L2) 5 Normal Extension (S1) 4+ Good+ Abduction 4 Good Adduction 4 Good Knee Strength Knee Manual Muscle Testing Right Flexion (S2) 2- Poor- Extension (L3) 3- Fair- Left Flexion (S2) 5 Normal Extension (L3) 5 Normal PT-OP-Q Treatments Start: 02/18/25 12:52 Freq: Status: Active Protocol: Document 03/16/25 13:45 PG (Rec: 03/16/25 14:54 PG [id number]) Cardio Equipment Recumbent Stepper (Sci-Fit) Duration (Minutes) 6 Resistance 4 Seat Position 9, (arms at 6) Other NuStep: MINNA& Emelyn, 82-83 SPM Gym Equipment Shuttle Balance red clips Details WBOS, Staggered Stance (LLE fwd) Comments Cues to engage core and look ahead. Required verb/tactile cues to point toes forward with WBOS stance. Cues to shift weight into RLE. Min A: 5-10% from SPTA. Trialed head nods L/R Therapeutic Exercises Sitting Exercises Hip Abduction Sitting Exercise Name Seated clamshell Side bilateral Resistance GTB Reps/Minutes 2x10 reps L, Isometric 3 SH x10 R Comments tactile cue to R VL for engagment- noted engagment and muscle flickering. LAQ Sitting Exercise Name LAQ Side bilateral Resistance 4# leg wt on L Equipment Used therapist hand target kick to, improved range L>R Reps/Minutes 2x5 reps L, AROM R (CARY wedge under thigh)- Mesh chair Comments occ tactile cues to R quad Standing Exercises STS Standing Exercise Name STS Equipment Used mesh chair Reps/Minutes x7 in 30 seconds Neuro Re-Education Treatment Balance Activities Cones Details Cone Taps Surface AROM, floor Equipment L UE heavy on L HR Reps/Duration verbal and tactile cues for which LE to which of 3 cones. Comments Cued upright posture, cued for weight shift into RLE for improved midline alignment. PT-OP-T Assessment and Plan Start: 02/18/25 12:52 Freq: Status: Active Protocol: Document 03/16/25 13:45 PG (Rec: 03/16/25 14:54 PG [id number]) Physical Therapy Assessment Impairments Impairments Activity Tolerance,Balance, Coordination,Functional Activities,Functional Mobility ,Gait,ROM,Strength,Tone Goals Three Impairment Pt Tinetti score of 14/26 indicates an increased risk of falls Harnessmaker Goal (LTG) Pt to improve Tinetti score by at least five points to 19/28 in order to demonstrate a reduction in falls risk. LTG Duration 05/19/25 Two Impairment Pt performs six repetitions during 30 second Sit to Stand Retirement Goal (LTG) Pt to improve repetitions during 30sStS by at least four to x10 repetitions in order to demonstrate improved activity tolerance LTG Duration 05/19/25 One Impairment Pt does not have an appropriate home exercise program Short Term Goal (STG) Pt to be independent and compliant with an appropriate HEP STG Duration 03/20/25 Assessment Summary Assessment Continued with balancing challenges like cone taps and WBOS/staggered stance on balance shuttle to work on increased time in SLS, weight shifting into RLE and improving midline alignment. Reassessed number of STS's in 30 seconds, pt was able to complete 7 full STS. Demonstrated big weight shift and lean to the left at an angle when sitting down. Physical Therapy Plan Frequency and Duration Frequency of Treatment 2x/Week Plan of Care Start Date 02/18/25 Plan of Care End Date 05/19/25 Therapeutic Interventions Therapeutic Interventions Balance Training,Gait Training ,Home Exercise Program,Manual Therapy,Neuromuscular Re- education Next Visit Focus/Plan Next Note Type Treatment Note Next Visit Plan Next: Continue Balance shuttle for weight shifting/balance challenge, tinetti inspired ex 's. POC: Balance, gait, activity tolerance, strengthening
--- NOTE | 2025-03-19 13:41 | PT.OTN ---
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 (03/19/25) Personal history of transient ischemic attack (TIA), and cerebral infarction without residual deficits (03/19/25) Physical Therapy Treatment Note PT-OP-A Visit Information Start: 02/18/25 12:52 Freq: Status: Active Protocol: Document 03/19/25 13:01 PG (Rec: 03/19/25 14:13 PG Laptop) Out-Patient Physical Therapy Visit Information Visit Information Visit Type Treatment Note Visit Note GOYOACatherine led tx w permission of pt and direct supervision of Lupe LINDSEY Visit Start Time 13:01 Visit Stop Time 13:41 Visit Number 7 Number of MATERIAL ASSEMBLER Visits 4 PT-OP-B Current Condition Start: 02/18/25 12:52 Freq: Status: Active Protocol: Document 02/18/25 12:15 DCW (Rec: 02/18/25 13:44 DCW [id number]) Current Condition History of Current Condition Onset Date 11/03/13 Current Complaints s/p CVA, decreased gait, poor balance, weakness History of Current Condition Pt is a 68 year old male who is 11 years s/p CVA which severe right-sided hemiplegia. Pt has been seen at this facility off and on since his CVA, was varying levels of success. Often work on balance , gait, strength, activity tolerance, and functional mobility, and will see some improvement in areas, however there is usually minimal carry -over at home, and pt will frequently hit a plateau, discharge, and then return to PT following a decline in function. Pt is largely non- verbal since his CVA. His reports at today's evaluation that his walking has declined in quality and in speed, and he is much shakier when first standing up. Pt has a left- sided weight-shift to unload hemiplegic right side. Additionally has recently been found to have some fluid around his lungs, has an upcoming appointment in pulmonary. Pt typically not especially thrilled with the idea of PT, but will generally do what is requested. PT-OP-C Subjective Start: 02/18/25 12:52 Freq: Status: Active Protocol: Document 03/19/25 13:01 PG (Rec: 03/19/25 14:13 PG Laptop) OP-PT Subjective Patient Comments Patient Comments Pt indicates he is doing well. PT-OP-D Balance Start: 02/18/25 12:52 Freq: Status: Active Protocol: Document 02/18/25 12:15 DCW (Rec: 02/18/25 12:59 DCW [id number]) Tinetti Balance Assessment Sitting Balance Sitting Balance Steady, safe Arising from Chair Ability to Arise Able, uses arms to help Attempts to Arise Arises on 1st attempt Standing Balance Immediate Standing Balance Steady with support Standing Balance Steady, wide stance Nudged Response Staggers, catches self Standing with Eyes Closed Steady Turning Step Pattern Turning 360 Degrees Discontinuous steps Stability Turning 360 Degrees Unsteady, grabs/staggers Sitting Down Sitting Down Uses arms or unsteady Gait and Step Initiation of Gait No hesitancy Right Foot Step Length Does pass stance foot Right Foot Step Height Does not clear floor Left Foot Step Length Does not pass stance foot Left Foot Step Height Completely clears floor Step Description Step Symmetry Step length not equal Step Continuity Stopping or discontinuity Gait Description Path Description Mild/moderate deviation Trunk Description Marked sway or uses aide Walking Stance Heels together Scoring and Interpretation Tinetti Composite Score (points) 14 Interpretation of Scores High risk for falls(< 19) Tinetti Impairment Rating from Composite 40 to <60% Impaired (Score 12- Score 16) PT-OP-E Functional Tests Start: 02/18/25 12:52 Freq: Status: Active Protocol: Document 02/18/25 12:15 DCW (Rec: 02/18/25 12:59 DCW [id number]) Functional Tests 2 Minute Walk Test Distance 86' Device Used [facility] 30 Second Sit to Stand Test Score x6 repetitions Timed Up and Go (TUG) Score 41.33 Comments [facility] PT-OP-G Mobility & Gait Start: 02/18/25 12:52 Freq: Status: Active Protocol: Document 02/18/25 12:15 DCW (Rec: 02/18/25 16:04 DCW [id number]) OP Gait Assessment Gait Gait Assistance Required: Standby Assistance Distance (Feet) 86 Assistive Devices Assistive Device Large Based Quad Cane Orthotic/Prosthetic Devices or Brace: Yes Gait Deviations General Gait Pattern Ataxic,Decreased Stride Length ,Decreased Feet Clearance, Flexed Trunk,Lateral Trunk Lean,Narrow Based Gait,Step-to Gait Factors Limiting Gait Function Factors Limiting Gait Function Decreased Activity Tolerance, Decreased Strength, Incoordination,Limited Range of Motion,Pain,Poor Balance, Poor Safety Awareness PT-OP-M Strength Start: 02/18/25 12:52 Freq: Status: Active Protocol: Document 02/18/25 12:15 DCW (Rec: 02/18/25 16:04 DCW [id number]) Hip Strength Hip Manual Muscle Testing Right Flexion (L2) 3- Fair- Extension (S1) 4- Good- Abduction 3- Fair- Adduction 3- Fair- Left Flexion (L2) 5 Normal Extension (S1) 4+ Good+ Abduction 4 Good Adduction 4 Good Knee Strength Knee Manual Muscle Testing Right Flexion (S2) 2- Poor- Extension (L3) 3- Fair- Left Flexion (S2) 5 Normal Extension (L3) 5 Normal PT-OP-Q Treatments Start: 02/18/25 12:52 Freq: Status: Active Protocol: Document 03/19/25 13:01 PG (Rec: 03/19/25 14:13 PG Laptop) Cardio Equipment Recumbent Stepper (Sci-Fit) Duration (Minutes) 6 Resistance 4 Seat Position 9, (arms at 6) Other NuStep: LUE& BLEs, 82-83 SPM Gym Equipment Shuttle Recovery Bilateral Squats Details ball between knees, support under R LE Resistance 25# (teal) Reps/Time 2x10 cues to keep L toes from lifting when pushing up. Shuttle Balance red clips Details WBOS, NBOS Comments Cues to look ahead. Required verb/tactile cues to point toes forward. Cues to shift weight into RLE. Min A: 5-15% from SPTA. Trialed head nods L/R, up/dwn Neuro Re-Education Treatment Balance Activities Hurdles Details Hurdles Equipment // bars, LUE support Reps/Duration 2 laps Comments Step to gait pattern, cued for weight shifting into R LE and standing tall when in-between hurdles. Cued to lead with both LLE and RLE on the way back. Pt had difficulty leading with LLE due to increase SLS on RLE Tandem Details Tandem stance Equipment // bars Comments Cued for equal weight into both front and back feet, no UE support. R infront of L ( CG - 15%A) more difficult then L infront of R (CG - 5%) PT-OP-T Assessment and Plan Start: 02/18/25 12:52 Freq: Status: Active Protocol: Document 03/19/25 13:01 PG (Rec: 03/19/25 14:13 PG Laptop) Physical Therapy Assessment Impairments Impairments Activity Tolerance,Balance, Coordination,Functional Activities,Functional Mobility ,Gait,ROM,Strength,Tone Goals Three Impairment Pt Tinetti score of 14/26 indicates an increased risk of falls Slurry Tank Tender Goal (LTG) Pt to improve Tinetti score by at least five points to 19/28 in order to demonstrate a reduction in falls risk. LTG Duration 05/19/25 Two Impairment Pt performs six repetitions during 30 second Sit to Stand Longterm Goal (LTG) Pt to improve repetitions during 30sStS by at least four to x10 repetitions in order to demonstrate improved activity tolerance LTG Duration 05/19/25 One Impairment Pt does not have an appropriate home exercise program Short Term Goal (STG) Pt to be independent and compliant with an appropriate HEP STG Duration 03/20/25 Assessment Summary Assessment Continued working on dynamic balance and weight shifts on the shuttle balance and in tandem stance to improve midline alignment. Walked through hurdles alternating leading with L or R LE, mod cues required to weightshift over stance leg and decrease L lateral trunk flexion and weightbearing through the LUE. Physical Therapy Plan Frequency and Duration Frequency of Treatment 2x/Week Plan of Care Start Date 02/18/25 Plan of Care End Date 05/19/25 Therapeutic Interventions Therapeutic Interventions Balance Training,Gait Training ,Home Exercise Program,Manual Therapy,Neuromuscular Re- education Next Visit Focus/Plan Next Note Type Treatment Note Next Visit Plan Next: Continue Balance shuttle for weight shifting/balance challenge, reassess STS: added to HEP? POC: Balance, gait, activity tolerance, strengthening
--- NOTE | 2025-03-23 14:31 | PT.OTN ---
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 (03/23/25) Personal history of transient ischemic attack (TIA), and cerebral infarction without residual deficits (03/23/25) Physical Therapy Treatment Note PT-OP-A Visit Information Start: 02/18/25 12:52 Freq: Status: Active Protocol: Document 03/23/25 13:45 DCW (Rec: 03/23/25 14:31 DCW [id number]) Out-Patient Physical Therapy Visit Information Visit Information Visit Type Treatment Note Visit Start Time 13:45 Visit Stop Time 14:30 Visit Number 8 Number of DEPUTY CONTROLLER Visits 0 Evaluation Information Evaluation Date 02/18/25 PT-OP-B Current Condition Start: 02/18/25 12:52 Freq: Status: Active Protocol: Document 02/18/25 12:15 DCW (Rec: 02/18/25 13:44 DCW [id number]) Current Condition History of Current Condition Onset Date 11/03/13 Current Complaints s/p CVA, decreased gait, poor balance, weakness History of Current Condition Pt is a 68 year old male who is 11 years s/p CVA which severe right-sided hemiplegia. Pt has been seen at this facility off and on since his CVA, was varying levels of success. Often work on balance , gait, strength, activity tolerance, and functional mobility, and will see some improvement in areas, however there is usually minimal carry -over at home, and pt will frequently hit a plateau, discharge, and then return to PT following a decline in function. Pt is largely non- verbal since his CVA. His reports at today's evaluation that his walking has declined in quality and in speed, and he is much shakier when first standing up. Pt has a left- sided weight-shift to unload hemiplegic right side. Additionally has recently been found to have some fluid around his lungs, has an upcoming appointment in pulmonary. Pt typically not especially thrilled with the idea of PT, but will generally do what is requested. PT-OP-C Subjective Start: 02/18/25 12:52 Freq: Status: Active Protocol: Document 03/23/25 13:45 DCW (Rec: 03/23/25 14:31 DCW [id number]) OP-PT Subjective Patient Comments Patient Comments Pt's notes that pt has a very busy week of Dr delarosa upcoming. PT-OP-D Balance Start: 02/18/25 12:52 Freq: Status: Active Protocol: Document 02/18/25 12:15 DCW (Rec: 02/18/25 12:59 DCW [id number]) Tinetti Balance Assessment Sitting Balance Sitting Balance Steady, safe Arising from Chair Ability to Arise Able, uses arms to help Attempts to Arise Arises on 1st attempt Standing Balance Immediate Standing Balance Steady with support Standing Balance Steady, wide stance Nudged Response Staggers, catches self Standing with Eyes Closed Steady Turning Step Pattern Turning 360 Degrees Discontinuous steps Stability Turning 360 Degrees Unsteady, grabs/staggers Sitting Down Sitting Down Uses arms or unsteady Gait and Step Initiation of Gait No hesitancy Right Foot Step Length Does pass stance foot Right Foot Step Height Does not clear floor Left Foot Step Length Does not pass stance foot Left Foot Step Height Completely clears floor Step Description Step Symmetry Step length not equal Step Continuity Stopping or discontinuity Gait Description Path Description Mild/moderate deviation Trunk Description Marked sway or uses aide Walking Stance Heels together Scoring and Interpretation Tinetti Composite Score (points) 14 Interpretation of Scores High risk for falls(< 19) Tinetti Impairment Rating from Composite 40 to <60% Impaired (Score 12- Score 16) PT-OP-E Functional Tests Start: 02/18/25 12:52 Freq: Status: Active Protocol: Document 02/18/25 12:15 DCW (Rec: 02/18/25 12:59 DCW [id number]) Functional Tests 2 Minute Walk Test Distance 86' Device Used [facility] 30 Second Sit to Stand Test Score x6 repetitions Timed Up and Go (TUG) Score 41.33 Comments [facility] PT-OP-G Mobility & Gait Start: 02/18/25 12:52 Freq: Status: Active Protocol: Document 02/18/25 12:15 DCW (Rec: 02/18/25 16:04 DCW [id number]) OP Gait Assessment Gait Gait Assistance Required: Standby Assistance Distance (Feet) 86 Assistive Devices Assistive Device Large Based Quad Cane Orthotic/Prosthetic Devices or Brace: Yes Gait Deviations General Gait Pattern Ataxic,Decreased Stride Length ,Decreased Feet Clearance, Flexed Trunk,Lateral Trunk Lean,Narrow Based Gait,Step-to Gait Factors Limiting Gait Function Factors Limiting Gait Function Decreased Activity Tolerance, Decreased Strength, Incoordination,Limited Range of Motion,Pain,Poor Balance, Poor Safety Awareness PT-OP-M Strength Start: 02/18/25 12:52 Freq: Status: Active Protocol: Document 02/18/25 12:15 DCW (Rec: 02/18/25 16:04 DCW [id number]) Hip Strength Hip Manual Muscle Testing Right Flexion (L2) 3- Fair- Extension (S1) 4- Good- Abduction 3- Fair- Adduction 3- Fair- Left Flexion (L2) 5 Normal Extension (S1) 4+ Good+ Abduction 4 Good Adduction 4 Good Knee Strength Knee Manual Muscle Testing Right Flexion (S2) 2- Poor- Extension (L3) 3- Fair- Left Flexion (S2) 5 Normal Extension (L3) 5 Normal PT-OP-Q Treatments Start: 02/18/25 12:52 Freq: Status: Active Protocol: Document 03/23/25 13:45 DCW (Rec: 03/23/25 14:31 DCW [id number]) Cardio Equipment Recumbent Stepper (Sci-Fit) Duration (Minutes) 6 Resistance 4 Seat Position 9, (arms at 6) Other NuStep: MINNA& Emelyn, 68-72 SPM Gym Equipment Shuttle Recovery Unilateral Squats Details VCs for slow speed Resistance 25# (teal) Bilateral Squats Details ball between knees, support under R LE Resistance 37# (teal) Shuttle Balance red clips Details Staggered Stance Comments VCs for upright posture, increased stance on right LE. Neuro Re-Education Treatment Balance Activities Cones Details Cone taps Equipment 2# ankle weights Comments Alternating feet, tapping cones - 3 cones each foot Hurdles Details Hurdles Equipment @ rail Reps/Duration 3 hurdles Comments Side-stepping Tandem Details Tandem stance Equipment @ rail Comments Cued for equal weight into both legs PT-OP-T Assessment and Plan Start: 02/18/25 12:52 Freq: Status: Active Protocol: Document 03/23/25 13:45 DCW (Rec: 03/23/25 14:31 DCW [id number]) Physical Therapy Assessment Impairments Impairments Activity Tolerance,Balance, Coordination,Functional Activities,Functional Mobility ,Gait,ROM,Strength,Tone Goals Three Impairment Pt Tinetti score of 14/26 indicates an increased risk of falls Senior Living Goal (LTG) Pt to improve Tinetti score by at least five points to 19/28 in order to demonstrate a reduction in falls risk. LTG Duration 05/19/25 Two Impairment Pt performs six repetitions during 30 second Sit to Stand Technical Publications Manager Goal (LTG) Pt to improve repetitions during 30sStS by at least four to x10 repetitions in order to demonstrate improved activity tolerance LTG Duration 05/19/25 One Impairment Pt does not have an appropriate home exercise program Short Term Goal (STG) Pt to be independent and compliant with an appropriate HEP STG Duration 03/20/25 Assessment Summary Assessment Pt demonstrating some improvement with weight bearing through right LE when cued. Increased ability to use right LE on leg press. Continue to focus on balance, activity tolerance, and strengthening. Physical Therapy Plan Frequency and Duration Frequency of Treatment 2x/Week Plan of Care Start Date 02/18/25 Plan of Care End Date 05/19/25 Therapeutic Interventions Therapeutic Interventions Balance Training,Gait Training ,Home Exercise Program,Manual Therapy,Neuromuscular Re- education Next Visit Focus/Plan Next Note Type Treatment Note Next Visit Plan Next: Continue Balance shuttle for weight shifting/balance challenge, reassess STS: added to HEP? POC: Balance, gait, activity tolerance, strengthening
--- NOTE | 2025-03-26 13:02 | PT.OTN ---
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 (03/26/25) Personal history of transient ischemic attack (TIA), and cerebral infarction without residual deficits (03/26/25) Physical Therapy Treatment Note PT-OP-A Visit Information Start: 02/18/25 12:52 Freq: Status: Active Protocol: Document 03/26/25 12:15 DCW (Rec: 03/26/25 13:02 DCW [id number]) Out-Patient Physical Therapy Visit Information Visit Information Visit Type Treatment Note Visit Start Time 12:15 Visit Stop Time 13:00 Visit Number 9 Number of DRY CANS OPERATOR Visits 0 Evaluation Information Evaluation Date 02/18/25 PT-OP-B Current Condition Start: 02/18/25 12:52 Freq: Status: Active Protocol: Document 02/18/25 12:15 DCW (Rec: 02/18/25 13:44 DCW [id number]) Current Condition History of Current Condition Onset Date 11/03/13 Current Complaints s/p CVA, decreased gait, poor balance, weakness History of Current Condition Pt is a 68 year old male who is 11 years s/p CVA which severe right-sided hemiplegia. Pt has been seen at this facility off and on since his CVA, was varying levels of success. Often work on balance , gait, strength, activity tolerance, and functional mobility, and will see some improvement in areas, however there is usually minimal carry -over at home, and pt will frequently hit a plateau, discharge, and then return to PT following a decline in function. Pt is largely non- verbal since his CVA. His reports at today's evaluation that his walking has declined in quality and in speed, and he is much shakier when first standing up. Pt has a left- sided weight-shift to unload hemiplegic right side. Additionally has recently been found to have some fluid around his lungs, has an upcoming appointment in pulmonary. Pt typically not especially thrilled with the idea of PT, but will generally do what is requested. PT-OP-C Subjective Start: 02/18/25 12:52 Freq: Status: Active Protocol: Document 03/26/25 12:15 DCW (Rec: 03/26/25 13:02 DCW [id number]) OP-PT Subjective Patient Comments Patient Comments Pt's reports she has been trying to get pt to wake up earlier in the day, hoping it allows pt to be a little more energetic at PT. PT-OP-D Balance Start: 02/18/25 12:52 Freq: Status: Active Protocol: Document 02/18/25 12:15 DCW (Rec: 02/18/25 12:59 DCW [id number]) Tinetti Balance Assessment Sitting Balance Sitting Balance Steady, safe Arising from Chair Ability to Arise Able, uses arms to help Attempts to Arise Arises on 1st attempt Standing Balance Immediate Standing Balance Steady with support Standing Balance Steady, wide stance Nudged Response Staggers, catches self Standing with Eyes Closed Steady Turning Step Pattern Turning 360 Degrees Discontinuous steps Stability Turning 360 Degrees Unsteady, grabs/staggers Sitting Down Sitting Down Uses arms or unsteady Gait and Step Initiation of Gait No hesitancy Right Foot Step Length Does pass stance foot Right Foot Step Height Does not clear floor Left Foot Step Length Does not pass stance foot Left Foot Step Height Completely clears floor Step Description Step Symmetry Step length not equal Step Continuity Stopping or discontinuity Gait Description Path Description Mild/moderate deviation Trunk Description Marked sway or uses aide Walking Stance Heels together Scoring and Interpretation Tinetti Composite Score (points) 14 Interpretation of Scores High risk for falls(< 19) Tinetti Impairment Rating from Composite 40 to <60% Impaired (Score 12- Score 16) PT-OP-E Functional Tests Start: 02/18/25 12:52 Freq: Status: Active Protocol: Document 02/18/25 12:15 DCW (Rec: 02/18/25 12:59 DCW [id number]) Functional Tests 2 Minute Walk Test Distance 86' Device Used [facility] 30 Second Sit to Stand Test Score x6 repetitions Timed Up and Go (TUG) Score 41.33 Comments [facility] PT-OP-G Mobility & Gait Start: 02/18/25 12:52 Freq: Status: Active Protocol: Document 02/18/25 12:15 DCW (Rec: 02/18/25 16:04 DCW [id number]) OP Gait Assessment Gait Gait Assistance Required: Standby Assistance Distance (Feet) 86 Assistive Devices Assistive Device Large Based Quad Cane Orthotic/Prosthetic Devices or Brace: Yes Gait Deviations General Gait Pattern Ataxic,Decreased Stride Length ,Decreased Feet Clearance, Flexed Trunk,Lateral Trunk Lean,Narrow Based Gait,Step-to Gait Factors Limiting Gait Function Factors Limiting Gait Function Decreased Activity Tolerance, Decreased Strength, Incoordination,Limited Range of Motion,Pain,Poor Balance, Poor Safety Awareness PT-OP-M Strength Start: 02/18/25 12:52 Freq: Status: Active Protocol: Document 02/18/25 12:15 DCW (Rec: 02/18/25 16:04 DCW [id number]) Hip Strength Hip Manual Muscle Testing Right Flexion (L2) 3- Fair- Extension (S1) 4- Good- Abduction 3- Fair- Adduction 3- Fair- Left Flexion (L2) 5 Normal Extension (S1) 4+ Good+ Abduction 4 Good Adduction 4 Good Knee Strength Knee Manual Muscle Testing Right Flexion (S2) 2- Poor- Extension (L3) 3- Fair- Left Flexion (S2) 5 Normal Extension (L3) 5 Normal PT-OP-Q Treatments Start: 02/18/25 12:52 Freq: Status: Active Protocol: Document 03/26/25 12:15 DCW (Rec: 03/26/25 13:02 DCW [id number]) Cardio Equipment Recumbent Stepper (Sci-Fit) Duration (Minutes) 6 Resistance 4 Seat Position 10, (arms at 9) Other NuStep: MINNA& Emelyn, 86 SPM Gym Equipment Shuttle Recovery Unilateral Squats Details VCs for slow speed Resistance 25# (navy) Bilateral Squats Details ball between knees Resistance 37# (navy) Shuttle Balance red clips Details Staggered Stance Comments VCs for upright posture, increased stance on right LE. Neuro Re-Education Treatment Balance Activities Cones Details Cone taps Surface AirEx Equipment 2# ankle weights Comments Alternating feet, tapping cones - 3 cones each foot Hurdles Details Hurdles Equipment @ rail Reps/Duration 3 hurdles Comments Side-stepping PT-OP-T Assessment and Plan Start: 02/18/25 12:52 Freq: Status: Active Protocol: Document 03/26/25 12:15 DCW (Rec: 03/26/25 13:02 DCW [id number]) Physical Therapy Assessment Impairments Impairments Activity Tolerance,Balance, Coordination,Functional Activities,Functional Mobility ,Gait,ROM,Strength,Tone Goals Three Impairment Pt Tinetti score of 14/26 indicates an increased risk of falls Snf Goal (LTG) Pt to improve Tinetti score by at least five points to 19/28 in order to demonstrate a reduction in falls risk. LTG Duration 05/19/25 Two Impairment Pt performs six repetitions during 30 second Sit to Stand Concrete Laborer Goal (LTG) Pt to improve repetitions during 30sStS by at least four to x10 repetitions in order to demonstrate improved activity tolerance LTG Duration 05/19/25 One Impairment Pt does not have an appropriate home exercise program Short Term Goal (STG) Pt to be independent and compliant with an appropriate HEP STG Duration 03/20/25 Assessment Summary Assessment Some good improvement with activity tolerance today, pt much more motivated to participate in all activities today. Showing some increased ability to stabilize on Shuttle Balance. Continue to focus on improving activity tolerance, gait, balance, and leg strength. Physical Therapy Plan Frequency and Duration Frequency of Treatment 2x/Week Plan of Care Start Date 02/18/25 Plan of Care End Date 05/19/25 Therapeutic Interventions Therapeutic Interventions Balance Training,Gait Training ,Home Exercise Program,Manual Therapy,Neuromuscular Re- education Next Visit Focus/Plan Next Note Type Treatment Note Next Visit Plan Next: Continue Balance shuttle for weight shifting/balance challenge, reassess STS: added to HEP? POC: Balance, gait, activity tolerance, strengthening
--- NOTE | 2025-03-30 13:42 | PT.OTN ---
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 (03/30/25) Personal history of transient ischemic attack (TIA), and cerebral infarction without residual deficits (03/30/25) Physical Therapy Treatment Note PT-OP-A Visit Information Start: 02/18/25 12:52 Freq: Status: Active Protocol: Document 03/30/25 13:00 PG (Rec: 03/30/25 14:03 PG Laptop) Out-Patient Physical Therapy Visit Information Visit Information Visit Type Treatment Note Visit Note Catherine BANDA led tx with permission of pt and direct supervision from Lupe LINDSEY. Visit Start Time 13:00 Visit Stop Time 13:42 Visit Number 10 Number of CUSTOMER SERVICE ENGINEER Visits 1 Evaluation Information Evaluation Date 02/18/25 PT-OP-B Current Condition Start: 02/18/25 12:52 Freq: Status: Active Protocol: Document 02/18/25 12:15 DCW (Rec: 02/18/25 13:44 DCW [id number]) Current Condition History of Current Condition Onset Date 11/03/13 Current Complaints s/p CVA, decreased gait, poor balance, weakness History of Current Condition Pt is a 68 year old male who is 11 years s/p CVA which severe right-sided hemiplegia. Pt has been seen at this facility off and on since his CVA, was varying levels of success. Often work on balance , gait, strength, activity tolerance, and functional mobility, and will see some improvement in areas, however there is usually minimal carry -over at home, and pt will frequently hit a plateau, discharge, and then return to PT following a decline in function. Pt is largely non- verbal since his CVA. His reports at today's evaluation that his walking has declined in quality and in speed, and he is much shakier when first standing up. Pt has a left- sided weight-shift to unload hemiplegic right side. Additionally has recently been found to have some fluid around his lungs, has an upcoming appointment in pulmonary. Pt typically not especially thrilled with the idea of PT, but will generally do what is requested. PT-OP-C Subjective Start: 02/18/25 12:52 Freq: Status: Active Protocol: Document 03/30/25 13:00 PG (Rec: 03/30/25 14:03 PG Laptop) OP-PT Subjective Patient Comments Patient Comments Pt indicates he is well, didn' t wake up until around 10am this morning. PT-OP-D Balance Start: 02/18/25 12:52 Freq: Status: Active Protocol: Document 02/18/25 12:15 DCW (Rec: 02/18/25 12:59 DCW [id number]) Tinetti Balance Assessment Sitting Balance Sitting Balance Steady, safe Arising from Chair Ability to Arise Able, uses arms to help Attempts to Arise Arises on 1st attempt Standing Balance Immediate Standing Balance Steady with support Standing Balance Steady, wide stance Nudged Response Staggers, catches self Standing with Eyes Closed Steady Turning Step Pattern Turning 360 Degrees Discontinuous steps Stability Turning 360 Degrees Unsteady, grabs/staggers Sitting Down Sitting Down Uses arms or unsteady Gait and Step Initiation of Gait No hesitancy Right Foot Step Length Does pass stance foot Right Foot Step Height Does not clear floor Left Foot Step Length Does not pass stance foot Left Foot Step Height Completely clears floor Step Description Step Symmetry Step length not equal Step Continuity Stopping or discontinuity Gait Description Path Description Mild/moderate deviation Trunk Description Marked sway or uses aide Walking Stance Heels together Scoring and Interpretation Tinetti Composite Score (points) 14 Interpretation of Scores High risk for falls(< 19) Tinetti Impairment Rating from Composite 40 to <60% Impaired (Score 12- Score 16) PT-OP-E Functional Tests Start: 02/18/25 12:52 Freq: Status: Active Protocol: Document 02/18/25 12:15 DCW (Rec: 02/18/25 12:59 DCW [id number]) Functional Tests 2 Minute Walk Test Distance 86' Device Used LB 30 Second Sit to Stand Test Score x6 repetitions Timed Up and Go (TUG) Score 41.33 Comments LB PT-OP-G Mobility & Gait Start: 02/18/25 12:52 Freq: Status: Active Protocol: Document 02/18/25 12:15 DCW (Rec: 02/18/25 16:04 DCW [id number]) OP Gait Assessment Gait Gait Assistance Required: Standby Assistance Distance (Feet) 86 Assistive Devices Assistive Device Large Based Quad Cane Orthotic/Prosthetic Devices or Brace: Yes Gait Deviations General Gait Pattern Ataxic,Decreased Stride Length ,Decreased Feet Clearance, Flexed Trunk,Lateral Trunk Lean,Narrow Based Gait,Step-to Gait Factors Limiting Gait Function Factors Limiting Gait Function Decreased Activity Tolerance, Decreased Strength, Incoordination,Limited Range of Motion,Pain,Poor Balance, Poor Safety Awareness PT-OP-M Strength Start: 02/18/25 12:52 Freq: Status: Active Protocol: Document 02/18/25 12:15 DCW (Rec: 02/18/25 16:04 DCW [id number]) Hip Strength Hip Manual Muscle Testing Right Flexion (L2) 3- Fair- Extension (S1) 4- Good- Abduction 3- Fair- Adduction 3- Fair- Left Flexion (L2) 5 Normal Extension (S1) 4+ Good+ Abduction 4 Good Adduction 4 Good Knee Strength Knee Manual Muscle Testing Right Flexion (S2) 2- Poor- Extension (L3) 3- Fair- Left Flexion (S2) 5 Normal Extension (L3) 5 Normal PT-OP-Q Treatments Start: 02/18/25 12:52 Freq: Status: Active Protocol: Document 03/30/25 13:00 PG (Rec: 03/30/25 14:03 PG Laptop) Cardio Equipment Recumbent Stepper (Sci-Fit) Duration (Minutes) 6 Resistance 5 (4:30 min) > 4 (1:30 min) Seat Position 10, (arms at 9) Other NuStep: LUE& BLEs, 86 SPM Gym Equipment Shuttle Balance red clips Details WBOS, NBOS: head turns/nods, Staggered Stance Comments VCs for upright posture, increased weightbearing on right LE. Required Brandon: 5-15 % from SPTA. Therapeutic Exercises Sitting Exercises LAQ Sitting Exercise Name LAQ Side bilateral Resistance 2# ankle weights > AROM w RLE Equipment Used therapist hand target kick to, improved range L>R Reps/Minutes x10 LLE, x5 with 2#ankle weights > x5 AROM w RLE Comments occ tactile cues to R quad Standing Exercises STS Equipment Used mesh chair Reps/Minutes x5 Comments Cues to push off chair w LUE and push through both LE's Neuro Re-Education Treatment Balance Activities Cones Details Cone taps Surface AirEx Equipment 3 cones (dff color), AROM > 2# ankle weights Comments Cues for which foot to which color. Cues to weight shift over RLE to lift L. Cues for controlled touch with RLE. PT-OP-T Assessment and Plan Start: 02/18/25 12:52 Freq: Status: Active Protocol: Document 03/30/25 13:00 PG (Rec: 03/30/25 14:03 PG Laptop) Physical Therapy Assessment Impairments Impairments Activity Tolerance,Balance, Coordination,Functional Activities,Functional Mobility ,Gait,ROM,Strength,Tone Goals Three Impairment Pt Tinetti score of 14/26 indicates an increased risk of falls Prison Goal (LTG) Pt to improve Tinetti score by at least five points to 19/28 in order to demonstrate a reduction in falls risk. LTG Duration 05/19/25 Two Impairment Pt performs six repetitions during 30 second Sit to Stand Fluorescent Solution Mixer Goal (LTG) Pt to improve repetitions during 30sStS by at least four to x10 repetitions in order to demonstrate improved activity tolerance LTG Duration 05/19/25 One Impairment Pt does not have an appropriate home exercise program Short Term Goal (STG) Pt to be independent and compliant with an appropriate HEP STG Duration 03/20/25 Assessment Summary Assessment Continued working on weight shifting into RLE and balance on shuttle balance and with cone tapping activity. Pt demonstrated good weight shifts over the RLE when lifting LLE to tap a cone. Continues to have a difficult time controlling descending speed when tapping a cone with the RLE but improved control with cues to slow down. Physical Therapy Plan Frequency and Duration Frequency of Treatment 2x/Week Plan of Care Start Date 02/18/25 Plan of Care End Date 05/19/25 Therapeutic Interventions Therapeutic Interventions Balance Training,Gait Training ,Home Exercise Program,Manual Therapy,Neuromuscular Re- education Next Visit Focus/Plan Next Note Type Treatment Note Next Visit Plan Next: Continue balance challenges, reassess amount of STS's in 30 seconds. POC: Balance, gait, activity tolerance, strengthening
--- NOTE | 2025-04-01 15:12 | PT.OTN ---
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 (04/01/25) Personal history of transient ischemic attack (TIA), and cerebral infarction without residual deficits (04/01/25) Physical Therapy Treatment Note PT-OP-A Visit Information Start: 02/18/25 12:52 Freq: Status: Active Protocol: Document 04/01/25 14:30 DCW (Rec: 04/01/25 15:12 DCW [id number]) Out-Patient Physical Therapy Visit Information Visit Information Visit Type Treatment Note Visit Start Time 14:30 Visit Stop Time 15:15 Visit Number 11 Number of AIRPORT CONTROL OPERATOR Visits 0 Evaluation Information Evaluation Date 02/18/25 PT-OP-B Current Condition Start: 02/18/25 12:52 Freq: Status: Active Protocol: Document 02/18/25 12:15 DCW (Rec: 02/18/25 13:44 DCW [id number]) Current Condition History of Current Condition Onset Date 11/03/13 Current Complaints s/p CVA, decreased gait, poor balance, weakness History of Current Condition Pt is a 68 year old male who is 11 years s/p CVA which severe right-sided hemiplegia. Pt has been seen at this facility off and on since his CVA, was varying levels of success. Often work on balance , gait, strength, activity tolerance, and functional mobility, and will see some improvement in areas, however there is usually minimal carry -over at home, and pt will frequently hit a plateau, discharge, and then return to PT following a decline in function. Pt is largely non- verbal since his CVA. His reports at today's evaluation that his walking has declined in quality and in speed, and he is much shakier when first standing up. Pt has a left- sided weight-shift to unload hemiplegic right side. Additionally has recently been found to have some fluid around his lungs, has an upcoming appointment in pulmonary. Pt typically not especially thrilled with the idea of PT, but will generally do what is requested. PT-OP-C Subjective Start: 02/18/25 12:52 Freq: Status: Active Protocol: Document 04/01/25 14:30 DCW (Rec: 04/01/25 15:12 DCW [id number]) OP-PT Subjective Patient Comments Patient Comments Pt notes he is doing well today. PT-OP-D Balance Start: 02/18/25 12:52 Freq: Status: Active Protocol: Document 02/18/25 12:15 DCW (Rec: 02/18/25 12:59 TNW [id number]) Tinetti Balance Assessment Sitting Balance Sitting Balance Steady, safe Arising from Chair Ability to Arise Able, uses arms to help Attempts to Arise Arises on 1st attempt Standing Balance Immediate Standing Balance Steady with support Standing Balance Steady, wide stance Nudged Response Staggers, catches self Standing with Eyes Closed Steady Turning Step Pattern Turning 360 Degrees Discontinuous steps Stability Turning 360 Degrees Unsteady, grabs/staggers Sitting Down Sitting Down Uses arms or unsteady Gait and Step Initiation of Gait No hesitancy Right Foot Step Length Does pass stance foot Right Foot Step Height Does not clear floor Left Foot Step Length Does not pass stance foot Left Foot Step Height Completely clears floor Step Description Step Symmetry Step length not equal Step Continuity Stopping or discontinuity Gait Description Path Description Mild/moderate deviation Trunk Description Marked sway or uses aide Walking Stance Heels together Scoring and Interpretation Tinetti Composite Score (points) 14 Interpretation of Scores High risk for falls(< 19) Tinetti Impairment Rating from Composite 40 to <60% Impaired (Score 12- Score 16) PT-OP-E Functional Tests Start: 02/18/25 12:52 Freq: Status: Active Protocol: Document 02/18/25 12:15 DCW (Rec: 02/18/25 12:59 DCW [id number]) Functional Tests 2 Minute Walk Test Distance 86' Device Used [facility] 30 Second Sit to Stand Test Score x6 repetitions Timed Up and Go (TUG) Score 41.33 Comments [facility] PT-OP-G Mobility & Gait Start: 02/18/25 12:52 Freq: Status: Active Protocol: Document 02/18/25 12:15 DCW (Rec: 02/18/25 16:04 DCW [id number]) OP Gait Assessment Gait Gait Assistance Required: Standby Assistance Distance (Feet) 86 Assistive Devices Assistive Device Large Based Quad Cane Orthotic/Prosthetic Devices or Brace: Yes Gait Deviations General Gait Pattern Ataxic,Decreased Stride Length ,Decreased Feet Clearance, Flexed Trunk,Lateral Trunk Lean,Narrow Based Gait,Step-to Gait Factors Limiting Gait Function Factors Limiting Gait Function Decreased Activity Tolerance, Decreased Strength, Incoordination,Limited Range of Motion,Pain,Poor Balance, Poor Safety Awareness PT-OP-M Strength Start: 02/18/25 12:52 Freq: Status: Active Protocol: Document 02/18/25 12:15 DCW (Rec: 02/18/25 16:04 DCW [id number]) Hip Strength Hip Manual Muscle Testing Right Flexion (L2) 3- Fair- Extension (S1) 4- Good- Abduction 3- Fair- Adduction 3- Fair- Left Flexion (L2) 5 Normal Extension (S1) 4+ Good+ Abduction 4 Good Adduction 4 Good Knee Strength Knee Manual Muscle Testing Right Flexion (S2) 2- Poor- Extension (L3) 3- Fair- Left Flexion (S2) 5 Normal Extension (L3) 5 Normal PT-OP-Q Treatments Start: 02/18/25 12:52 Freq: Status: Active Protocol: Document 04/01/25 14:30 DCW (Rec: 04/01/25 15:12 DCW [id number]) Cardio Equipment Recumbent Stepper (Sci-Fit) Duration (Minutes) 6 Resistance 4 Seat Position 10, (arms at 9) Other NuStep: MINNA[employer] Emelyn, 80 spm Gym Equipment Shuttle Recovery Unilateral Squats Details VCs for slow speed Resistance 25# (one navy) Bilateral Squats Details ball between knees Resistance 50# (one navy) Neuro Re-Education Treatment Balance Activities Cones Details Cone taps Surface AirEx Equipment 2# ankle weights Comments Alternating feet, tapping cones - 3 cones each foot Hurdles Details Hurdles Equipment // bars, 2# ankle weights Reps/Duration 5 hurdles Comments Side-stepping Tandem Details Tandem stance Equipment @ rail Comments Cued for equal weight into both legs PT-OP-T Assessment and Plan Start: 02/18/25 12:52 Freq: Status: Active Protocol: Document 04/01/25 14:30 DCW (Rec: 04/01/25 15:12 DCW [id number]) Physical Therapy Assessment Assessment Summary Assessment Pt tolerated treatment very well today until very end of session, began to have spasming in right quad secondary to fatigue. Overall did well, showing some improvement in balance, weight -shift, and functional mobility. Continue focus on strengthening, balance, and activity tolerance. Physical Therapy Plan Frequency and Duration Frequency of Treatment 2x/Week Plan of Care Start Date 02/18/25 Plan of Care End Date 05/19/25 Therapeutic Interventions Therapeutic Interventions Balance Training,Gait Training ,Home Exercise Program,Manual Therapy,Neuromuscular Re- education Next Visit Focus/Plan Next Note Type Treatment Note Next Visit Plan Next: Continue balance challenges, reassess amount of STS's in 30 seconds. POC: Balance, gait, activity tolerance, strengthening
--- NOTE | 2025-04-19 13:43 | PT.OTN ---
Addendum entered and electronically signed by Lupe Beckett PTA 04/19/25 16:04: 30 day PN 04/26/25 visit. Original Note: 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 (04/19/25) Personal history of transient ischemic attack (TIA), and cerebral infarction without residual deficits (04/19/25) Physical Therapy Treatment Note PT-OP-A Visit Information Start: 02/18/25 12:52 Freq: Status: Active Protocol: Document 04/19/25 13:03 SP (Rec: 04/19/25 13:49 SP [id number]) Out-Patient Physical Therapy Visit Information Visit Information Visit Type Treatment Note Visit Start Time 13:03 Visit Stop Time 13:43 Visit Number 12 Number of TICKET ATTENDANT Visits 1 Evaluation Information Evaluation Date 02/18/25 PT-OP-B Current Condition Start: 02/18/25 12:52 Freq: Status: Active Protocol: Document 02/18/25 12:15 DCW (Rec: 02/18/25 13:44 DCW [id number]) Current Condition History of Current Condition Onset Date 11/03/13 Current Complaints s/p CVA, decreased gait, poor balance, weakness History of Current Pt is a 68 year old male who is 11 years s/p CVA which Condition severe right-sided hemiplegia. Pt has been seen at this facility off and on since his CVA, was varying levels of success. Often work on balance, gait, strength, activity tolerance, and functional mobility, and will see some improvement in areas, however there is usually minimal carry-over at home, and pt will frequently hit a plateau, discharge, and then return to PT following a decline in function. Pt is largely non-verbal since his CVA. His reports at today's evaluation that his walking has declined in quality and in speed, and he is much shakier when first standing up. Pt has a left-sided weight-shift to unload hemiplegic right side . Additionally has recently been found to have some fluid around his lungs, has an upcoming appointment in pulmonary. Pt typically not especially thrilled with the idea of PT, but will generally do what is requested . PT-OP-C Subjective Start: 02/18/25 12:52 Freq: Status: Active Protocol: Document 04/19/25 13:03 SP (Rec: 04/19/25 13:49 SP [id number]) OP-PT Subjective Patient Comments Patient Comments Pt nods head indicating doing ok when asked. PT-OP-D Balance Start: 02/18/25 12:52 Freq: Status: Active Protocol: Document 02/18/25 12:15 DCW (Rec: 02/18/25 12:59 DCW [id number]) Tinetti Balance Assessment Sitting Balance Sitting Balance Steady, safe Arising from Chair Ability to Arise Able, uses arms to help Attempts to Arise Arises on 1st attempt Standing Balance Immediate Standing Steady with support Balance Standing Balance Steady, wide stance Nudged Response Staggers, catches self Standing with Eyes Steady Closed Turning Step Pattern Turning Discontinuous steps 360 Degrees Stability Turning Unsteady, grabs/staggers 360 Degrees Sitting Down Sitting Down Uses arms or unsteady Gait and Step Initiation of Gait No hesitancy Right Foot Step Does pass stance foot Length Right Foot Step Does not clear floor Height Left Foot Step Does not pass stance foot Length Left Foot Step Completely clears floor Height Step Description Step Symmetry Step length not equal Step Continuity Stopping or discontinuity Gait Description Path Description Mild/moderate deviation Trunk Description Marked sway or uses aide Walking Stance Heels together Scoring and Interpretation Tinetti Composite 14 Score (points) Interpretation of High risk for falls(< 19) Scores Tinetti Impairment 40 to <60% Impaired (Score 12-16) Rating from Composite Score PT-OP-E Functional Tests Start: 02/18/25 12:52 Freq: Status: Active Protocol: Document 02/18/25 12:15 DCW (Rec: 02/18/25 12:59 DCW [id number]) Functional Tests 2 Minute Walk Test Distance 86' Device Used [facility] 30 Second Sit to Stand Test Score x6 repetitions Timed Up and Go (TUG) Score 41.33 Comments [facility] PT-OP-G Mobility & Gait Start: 02/18/25 12:52 Freq: Status: Active Protocol: Document 02/18/25 12:15 DCW (Rec: 02/18/25 16:04 DCW [id number]) OP Gait Assessment Gait Gait Assistance Standby Assistance Required: Distance (Feet) 86 Assistive Devices Assistive Device Large Based Quad Cane Orthotic/Prosthetic Yes Devices or Brace: Gait Deviations General Gait Pattern Ataxic,Decreased Stride Length,Decreased Feet Clearance ,Flexed Trunk,Lateral Trunk Lean,Narrow Based Gait,Step -to Gait Factors Limiting Gait Function Factors Limiting Decreased Activity Tolerance,Decreased Strength, Gait Function Incoordination,Limited Range of Motion,Pain,Poor Balance,Poor Safety Awareness PT-OP-M Strength Start: 02/18/25 12:52 Freq: Status: Active Protocol: Document 02/18/25 12:15 DCW (Rec: 02/18/25 16:04 DCW [id number]) Hip Strength Hip Manual Muscle Testing Right Flexion (L2) 3- Fair- Extension (S1) 4- Good- Abduction 3- Fair- Adduction 3- Fair- Left Flexion (L2) 5 Normal Extension (S1) 4+ Good+ Abduction 4 Good Adduction 4 Good Knee Strength Knee Manual Muscle Testing Right Flexion (S2) 2- Poor- Extension (L3) 3- Fair- Left Flexion (S2) 5 Normal Extension (L3) 5 Normal PT-OP-Q Treatments Start: 02/18/25 12:52 Freq: Status: Active Protocol: Document 04/19/25 13:03 SP (Rec: 04/19/25 13:49 SP [id number]) Cardio Equipment Recumbent Stepper (Sci-Fit) Duration (Minutes) 6 Resistance 5 (2 min)> 4 (4 min) Seat Position Seat 10, Handles at 9 Other NuStep: [employer] Emelyn, 74 spm Gym Equipment Shuttle Recovery Unilateral Squats Details tactile cue not lock knee into extension Resistance 25# (one navy) R, 37# (1 navy) L Reps/Time 10 reps each LE Bilateral Squats Details ball between knees Resistance 50# (2 navy) Reps/Time 15 reps Shuttle Balance red clips Details WBOS, NBOS: head turns/nods, Lateral wt shift and stationary stance Comments VCs for upright posture, increased weightbearing into right LE. Required Brandon: 5-15% from TICKET ATTENDANT. Therapeutic Exercises Sitting Exercises STS in 30 sec Reps/Minutes 7 reps in30 sec Gait Training Gait Activity Stairs Description for Level of Assistance CG-Min A Distance/Duration 6 - 4 steps x3 sets, L HR Comments asc/desc reciprocal stepping: tactile cues for alternate stepping, block anterior R knee during LLE descend for control into eccentric flexion control Neuro Re-Education Treatment Balance Activities Hurdles Details Hurdles Equipment // bars, 2# ankle weights Reps/Duration 5 hurdles Comments forward reciprocal stepping, max VCs patterning PT-OP-T Assessment and Plan Start: 02/18/25 12:52 Freq: Status: Active Protocol: Document 04/19/25 13:03 SP (Rec: 04/19/25 13:49 SP [id number]) Physical Therapy Assessment Goals Three Impairment Pt Tinetti score of 14/26 indicates an increased risk of falls Half-Way Goal (LTG) Pt to improve Tinetti score by at least five points to 19/28 in order to demonstrate a reduction in falls risk . LTG Duration 05/19/25 Two Impairment Pt performs six repetitions during 30 second Sit to Stand Esthetics Instructor Goal (LTG) Pt to improve repetitions during 30sStS by at least four to x10 repetitions in order to demonstrate improved activity tolerance 04/19/25: 7 reps in 30 sec LTG Duration 05/19/25 updated 04/19/25 One Impairment Pt does not have an appropriate home exercise program Short Term Goal (STG Pt to be independent and compliant with an appropriate ) HEP STG Duration 03/20/25 Assessment Summary Assessment Pt progressing in reps of STS in 30 sec 7 today. Cues for RLE WB and effort during ther ex today to encourage RLE strengthening. He was able to progress reciprocal stepping with stairs and marlen stepping, max VCs for patterning and occ tactile support anterior R knee control eccentric flexion for safety. Physical Therapy Plan Frequency and Duration Frequency of 2x/Week Treatment Plan of Care Start 02/18/25 Date Plan of Care End 05/19/25 Date Therapeutic Interventions Therapeutic Balance Training,Gait Training,Home Exercise Program, Interventions Manual Therapy,Neuromuscular Re-education Next Visit Focus/Plan Next Note Type Treatment Note Next Visit Plan 30 day PN 04/26 appt. Next: Continue balance challenges and functional strengthening. POC: Balance, gait, activity tolerance, strengthening
--- NOTE | 2025-04-23 15:59 | PT.OTN ---
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 (04/23/25) Personal history of transient ischemic attack (TIA), and cerebral infarction without residual deficits (04/23/25) Physical Therapy Treatment Note PT-OP-A Visit Information Start: 02/18/25 12:52 Freq: Status: Active Protocol: Document 04/23/25 15:15 DCW (Rec: 04/23/25 15:59 DCW [id number]) Out-Patient Physical Therapy Visit Information Visit Information Visit Type Treatment Note Visit Start Time 15:15 Visit Stop Time 16:00 Visit Number 13 Number of PRODUCTION PATTERN MAKER Visits 0 Evaluation Information Evaluation Date 02/18/25 PT-OP-B Current Condition Start: 02/18/25 12:52 Freq: Status: Active Protocol: Document 02/18/25 12:15 DCW (Rec: 02/18/25 13:44 DCW [id number]) Current Condition History of Current Condition Onset Date 11/03/13 Current Complaints s/p CVA, decreased gait, poor balance, weakness History of Current Pt is a 68 year old male who is 11 years s/p CVA which Condition severe right-sided hemiplegia. Pt has been seen at this facility off and on since his CVA, was varying levels of success. Often work on balance, gait, strength, activity tolerance, and functional mobility, and will see some improvement in areas, however there is usually minimal carry-over at home, and pt will frequently hit a plateau, discharge, and then return to PT following a decline in function. Pt is largely non-verbal since his CVA. His reports at today's evaluation that his walking has declined in quality and in speed, and he is much shakier when first standing up. Pt has a left-sided weight-shift to unload hemiplegic right side . Additionally has recently been found to have some fluid around his lungs, has an upcoming appointment in pulmonary. Pt typically not especially thrilled with the idea of PT, but will generally do what is requested . PT-OP-C Subjective Start: 02/18/25 12:52 Freq: Status: Active Protocol: Document 04/23/25 15:15 DCW (Rec: 04/23/25 15:59 DCW [id number]) OP-PT Subjective Patient Comments Patient Comments Pt notes he is doing well today. PT-OP-D Balance Start: 02/18/25 12:52 Freq: Status: Active Protocol: Document 02/18/25 12:15 DCW (Rec: 02/18/25 12:59 [facility] [id number]) Tinetti Balance Assessment Sitting Balance Sitting Balance Steady, safe Arising from Chair Ability to Arise Able, uses arms to help Attempts to Arise Arises on 1st attempt Standing Balance Immediate Standing Steady with support Balance Standing Balance Steady, wide stance Nudged Response Staggers, catches self Standing with Eyes Steady Closed Turning Step Pattern Turning Discontinuous steps 360 Degrees Stability Turning Unsteady, grabs/staggers 360 Degrees Sitting Down Sitting Down Uses arms or unsteady Gait and Step Initiation of Gait No hesitancy Right Foot Step Does pass stance foot Length Right Foot Step Does not clear floor Height Left Foot Step Does not pass stance foot Length Left Foot Step Completely clears floor Height Step Description Step Symmetry Step length not equal Step Continuity Stopping or discontinuity Gait Description Path Description Mild/moderate deviation Trunk Description Marked sway or uses aide Walking Stance Heels together Scoring and Interpretation Tinetti Composite 14 Score (points) Interpretation of High risk for falls(< 19) Scores Tinetti Impairment 40 to <60% Impaired (Score 12-16) Rating from Composite Score PT-OP-E Functional Tests Start: 02/18/25 12:52 Freq: Status: Active Protocol: Document 02/18/25 12:15 DCW (Rec: 02/18/25 12:59 MEW [id number]) Functional Tests 2 Minute Walk Test Distance 86' Device Used [facility] 30 Second Sit to Stand Test Score x6 repetitions Timed Up and Go (TUG) Score 41.33 Comments [facility] PT-OP-G Mobility & Gait Start: 02/18/25 12:52 Freq: Status: Active Protocol: Document 02/18/25 12:15 DCW (Rec: 02/18/25 16:04 MEW [id number]) OP Gait Assessment Gait Gait Assistance Standby Assistance Required: Distance (Feet) 86 Assistive Devices Assistive Device Large Based Quad Cane Orthotic/Prosthetic Yes Devices or Brace: Gait Deviations General Gait Pattern Ataxic,Decreased Stride Length,Decreased Feet Clearance ,Flexed Trunk,Lateral Trunk Lean,Narrow Based Gait,Step -to Gait Factors Limiting Gait Function Factors Limiting Decreased Activity Tolerance,Decreased Strength, Gait Function Incoordination,Limited Range of Motion,Pain,Poor Balance,Poor Safety Awareness PT-OP-M Strength Start: 02/18/25 12:52 Freq: Status: Active Protocol: Document 02/18/25 12:15 DCW (Rec: 02/18/25 16:04 DCW [id number]) Hip Strength Hip Manual Muscle Testing Right Flexion (L2) 3- Fair- Extension (S1) 4- Good- Abduction 3- Fair- Adduction 3- Fair- Left Flexion (L2) 5 Normal Extension (S1) 4+ Good+ Abduction 4 Good Adduction 4 Good Knee Strength Knee Manual Muscle Testing Right Flexion (S2) 2- Poor- Extension (L3) 3- Fair- Left Flexion (S2) 5 Normal Extension (L3) 5 Normal PT-OP-Q Treatments Start: 02/18/25 12:52 Freq: Status: Active Protocol: Document 04/23/25 15:15 DCW (Rec: 04/23/25 15:59 DCW [id number]) Cardio Equipment Recumbent Stepper (Sci-Fit) Duration (Minutes) 6 Resistance 5 Seat Position Seat 10, Handles at 8 Other NuStep: Carlin, 76 spm Gym Equipment Shuttle Recovery Unilateral Squats Details tactile cue not lock knee into extension Resistance 25# (one navy) R, 37# (1 navy) L Reps/Time 10 reps each LE Bilateral Squats Details ball between knees Resistance 50# (2 navy) Reps/Time 15 reps Neuro Re-Education Treatment Balance Activities Cones Details Cone taps Surface AirEx Equipment 2# ankle weights Comments Alternating feet, tapping cones - 3 cones each foot Hurdles Details Hurdles Equipment // bars Reps/Duration 5 hurdles Comments forward reciprocal stepping, max VCs patterning PT-OP-T Assessment and Plan Start: 02/18/25 12:52 Freq: Status: Active Protocol: Document 04/23/25 15:15 DCW (Rec: 04/23/25 15:59 DCW [id number]) Physical Therapy Assessment Impairments Impairments Activity Tolerance,Balance,Coordination,Functional Activities,Functional Mobility,Gait,ROM,Strength,Tone Goals Three Impairment Pt Tinetti score of 14/26 indicates an increased risk of falls Snf Goal (LTG) Pt to improve Tinetti score by at least five points to 19/28 in order to demonstrate a reduction in falls risk . LTG Duration 05/19/25 Two Impairment Pt performs six repetitions during 30 second Sit to Stand Jackhammer Operator Goal (LTG) Pt to improve repetitions during 30sStS by at least four to x10 repetitions in order to demonstrate improved activity tolerance 04/19/25: 7 reps in 30 sec LTG Duration 05/19/25 updated 04/19/25 One Impairment Pt does not have an appropriate home exercise program Short Term Goal (STG Pt to be independent and compliant with an appropriate ) HEP STG Duration 03/20/25 Assessment Summary Assessment Pt tolerated treatment well today, continues to improve with cone taps while on foam. Continue to work on improving strength, balance, and activity tolerance. Physical Therapy Plan Frequency and Duration Frequency of 2x/Week Treatment Plan of Care Start 02/18/25 Date Plan of Care End 05/19/25 Date Therapeutic Interventions Therapeutic Balance Training,Gait Training,Home Exercise Program, Interventions Manual Therapy,Neuromuscular Re-education Next Visit Focus/Plan Next Note Type Treatment Note Next Visit Plan Next: Continue balance challenges and functional strengthening. POC: Balance, gait, activity tolerance, strengthening
--- NOTE | 2025-04-26 17:41 | PT.OTN ---
Addendum entered and electronically signed by Jefferson Ceron, PT 04/26/25 17:53: PT direct supervision and direction to student PT Surya De La Torre throughout session Original Note: 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 (04/26/25) Personal history of transient ischemic attack (TIA), and cerebral infarction without residual deficits (04/26/25) Physical Therapy Treatment Note PT-OP-A Visit Information Start: 02/18/25 12:52 Freq: Status: Active Protocol: Document 04/26/25 14:31 LFG (Rec: 04/26/25 15:19 LFG Laptop) Out-Patient Physical Therapy Visit Information Visit Information Visit Type Treatment Note Visit Start Time 14:31 Visit Stop Time 15:12 Visit Number 14 Number of MANAGER MEDICAL Visits 0 Evaluation Information Evaluation Date 02/18/25 PT-OP-B Current Condition Start: 02/18/25 12:52 Freq: Status: Active Protocol: Document 02/18/25 12:15 DCW (Rec: 02/18/25 13:44 DCW [id number]) Current Condition History of Current Condition Onset Date 11/03/13 Current Complaints s/p CVA, decreased gait, poor balance, weakness History of Current Pt is a 68 year old male who is 11 years s/p CVA which Condition severe right-sided hemiplegia. Pt has been seen at this facility off and on since his CVA, was varying levels of success. Often work on balance, gait, strength, activity tolerance, and functional mobility, and will see some improvement in areas, however there is usually minimal carry-over at home, and pt will frequently hit a plateau, discharge, and then return to PT following a decline in function. Pt is largely non-verbal since his CVA. His reports at today's evaluation that his walking has declined in quality and in speed, and he is much shakier when first standing up. Pt has a left-sided weight-shift to unload hemiplegic right side . Additionally has recently been found to have some fluid around his lungs, has an upcoming appointment in pulmonary. Pt typically not especially thrilled with the idea of PT, but will generally do what is requested . PT-OP-C Subjective Start: 02/18/25 12:52 Freq: Status: Active Protocol: Document 04/26/25 14:31 LFG (Rec: 04/26/25 15:19 LFG Laptop) OP-PT Subjective Patient Comments Patient Comments Pt denies having any pain today, and nods head when asked if he is feeling good at the end of session. PT-OP-D Balance Start: 02/18/25 12:52 Freq: Status: Active Protocol: Document 02/18/25 12:15 DCW (Rec: 02/18/25 12:59 MDW [id number]) Tinetti Balance Assessment Sitting Balance Sitting Balance Steady, safe Arising from Chair Ability to Arise Able, uses arms to help Attempts to Arise Arises on 1st attempt Standing Balance Immediate Standing Steady with support Balance Standing Balance Steady, wide stance Nudged Response Staggers, catches self Standing with Eyes Steady Closed Turning Step Pattern Turning Discontinuous steps 360 Degrees Stability Turning Unsteady, grabs/staggers 360 Degrees Sitting Down Sitting Down Uses arms or unsteady Gait and Step Initiation of Gait No hesitancy Right Foot Step Does pass stance foot Length Right Foot Step Does not clear floor Height Left Foot Step Does not pass stance foot Length Left Foot Step Completely clears floor Height Step Description Step Symmetry Step length not equal Step Continuity Stopping or discontinuity Gait Description Path Description Mild/moderate deviation Trunk Description Marked sway or uses aide Walking Stance Heels together Scoring and Interpretation Tinetti Composite 14 Score (points) Interpretation of High risk for falls(< 19) Scores Tinetti Impairment 40 to <60% Impaired (Score 12-16) Rating from Composite Score PT-OP-E Functional Tests Start: 02/18/25 12:52 Freq: Status: Active Protocol: Document 02/18/25 12:15 DCW (Rec: 02/18/25 12:59 DCW [id number]) Functional Tests 2 Minute Walk Test Distance 86' Device Used [facility] 30 Second Sit to Stand Test Score x6 repetitions Timed Up and Go (TUG) Score 41.33 Comments [facility] PT-OP-G Mobility & Gait Start: 02/18/25 12:52 Freq: Status: Active Protocol: Document 02/18/25 12:15 DCW (Rec: 02/18/25 16:04 DCW [id number]) OP Gait Assessment Gait Gait Assistance Standby Assistance Required: Distance (Feet) 86 Assistive Devices Assistive Device Large Based Quad Cane Orthotic/Prosthetic Yes Devices or Brace: Gait Deviations General Gait Pattern Ataxic,Decreased Stride Length,Decreased Feet Clearance ,Flexed Trunk,Lateral Trunk Lean,Narrow Based Gait,Step -to Gait Factors Limiting Gait Function Factors Limiting Decreased Activity Tolerance,Decreased Strength, Gait Function Incoordination,Limited Range of Motion,Pain,Poor Balance,Poor Safety Awareness PT-OP-M Strength Start: 02/18/25 12:52 Freq: Status: Active Protocol: Document 02/18/25 12:15 DCW (Rec: 02/18/25 16:04 DCW [id number]) Hip Strength Hip Manual Muscle Testing Right Flexion (L2) 3- Fair- Extension (S1) 4- Good- Abduction 3- Fair- Adduction 3- Fair- Left Flexion (L2) 5 Normal Extension (S1) 4+ Good+ Abduction 4 Good Adduction 4 Good Knee Strength Knee Manual Muscle Testing Right Flexion (S2) 2- Poor- Extension (L3) 3- Fair- Left Flexion (S2) 5 Normal Extension (L3) 5 Normal PT-OP-Q Treatments Start: 02/18/25 12:52 Freq: Status: Active Protocol: Document 04/26/25 14:31 LFG (Rec: 04/26/25 15:19 LFG Laptop) Cardio Equipment Recumbent Stepper (Sci-Fit) Duration (Minutes) 6 Resistance 5 Seat Position Seat 10, Handles at 9 Other NuStep: Carlin, 76 spm Gym Equipment Shuttle Recovery Unilateral Squats Details tactile cue not lock knee into extension, keep toes on platform Resistance 25# (1 navy) R, 37# (1 navy) L Shuttle Recovery Stable Platform Reps/Time 10 reps each LE Bilateral Squats Details yellow ball between knees Resistance 50# (2 navy) Shuttle Recovery Stable Platform Neuro Re-Education Treatment Balance Activities Hurdles Details Hurdles - fwd/sideways Equipment // bars Reps/Duration 5 hurdles Comments SBA/CGA, cues for big steps, and not placing feet directly under marlen for easier clearing PT-OP-T Assessment and Plan Start: 02/18/25 12:52 Freq: Status: Active Protocol: Document 04/26/25 14:31 LFG (Rec: 04/26/25 15:19 LFG Laptop) Physical Therapy Assessment Impairments Impairments Activity Tolerance,Balance,Coordination,Functional Activities,Functional Mobility,Gait,ROM,Strength,Tone Goals Three Impairment Pt Tinetti score of 14/26 indicates an increased risk of falls Assembler Small Products Goal (LTG) Pt to improve Tinetti score by at least five points to 19/28 in order to demonstrate a reduction in falls risk . LTG Duration 05/19/25 Two Impairment Pt performs six repetitions during 30 second Sit to Stand Half-Way Goal (LTG) Pt to improve repetitions during 30sStS by at least four to x10 repetitions in order to demonstrate improved activity tolerance 04/19/25: 7 reps in 30 sec LTG Duration 05/19/25 updated 04/19/25 One Impairment Pt does not have an appropriate home exercise program Short Term Goal (STG Pt to be independent and compliant with an appropriate ) HEP STG Duration 03/20/25 Assessment Summary Assessment Pt demonstrated good activity tolerance today with occasional R LE spasms with some of the exercises in todays session. Pt will likely benefit from a continued focus on strength, balance, and activity tolerance. Physical Therapy Plan Frequency and Duration Frequency of 2x/Week Treatment Plan of Care Start 02/18/25 Date Plan of Care End 05/19/25 Date Therapeutic Interventions Therapeutic Balance Training,Gait Training,Home Exercise Program, Interventions Manual Therapy,Neuromuscular Re-education Next Visit Focus/Plan Next Note Type Treatment Note Next Visit Plan Next: Continue balance challenges and functional strengthening. POC: Balance, gait, activity tolerance, strengthening
--- NOTE | 2025-04-30 15:55 | PT.OTN ---
Addendum entered and electronically signed by Jefferson Ceron, PT 04/30/25 16:06: PT direct supervision and direction to student PT Surya De La Torre throughout session Original Note: 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 (04/30/25) Personal history of transient ischemic attack (TIA), and cerebral infarction without residual deficits (04/30/25) Physical Therapy Treatment Note PT-OP-A Visit Information Start: 02/18/25 12:52 Freq: Status: Active Protocol: Document 04/30/25 14:32 LFG (Rec: 04/30/25 14:24 LFG [id number]) Out-Patient Physical Therapy Visit Information Visit Information Visit Type Treatment Note Visit Start Time 14:32 Visit Stop Time 15:15 Visit Number 15 Evaluation Information Evaluation Date 02/18/25 PT-OP-B Current Condition Start: 02/18/25 12:52 Freq: Status: Active Protocol: Document 02/18/25 12:15 DCW (Rec: 02/18/25 13:44 DCW [id number]) Current Condition History of Current Condition Onset Date 11/03/13 Current Complaints s/p CVA, decreased gait, poor balance, weakness History of Current Pt is a 68 year old male who is 11 years s/p CVA which Condition severe right-sided hemiplegia. Pt has been seen at this facility off and on since his CVA, was varying levels of success. Often work on balance, gait, strength, activity tolerance, and functional mobility, and will see some improvement in areas, however there is usually minimal carry-over at home, and pt will frequently hit a plateau, discharge, and then return to PT following a decline in function. Pt is largely non-verbal since his CVA. His reports at today's evaluation that his walking has declined in quality and in speed, and he is much shakier when first standing up. Pt has a left-sided weight-shift to unload hemiplegic right side . Additionally has recently been found to have some fluid around his lungs, has an upcoming appointment in pulmonary. Pt typically not especially thrilled with the idea of PT, but will generally do what is requested . PT-OP-C Subjective Start: 02/18/25 12:52 Freq: Status: Active Protocol: Document 04/30/25 14:32 LFG (Rec: 04/30/25 14:24 LFG [id number]) OP-PT Subjective Patient Comments Patient Comments Patient is doing well today PT-OP-D Balance Start: 02/18/25 12:52 Freq: Status: Active Protocol: Document 02/18/25 12:15 DCW (Rec: 02/18/25 12:59 DCW [id number]) Tinetti Balance Assessment Sitting Balance Sitting Balance Steady, safe Arising from Chair Ability to Arise Able, uses arms to help Attempts to Arise Arises on 1st attempt Standing Balance Immediate Standing Steady with support Balance Standing Balance Steady, wide stance Nudged Response Staggers, catches self Standing with Eyes Steady Closed Turning Step Pattern Turning Discontinuous steps 360 Degrees Stability Turning Unsteady, grabs/staggers 360 Degrees Sitting Down Sitting Down Uses arms or unsteady Gait and Step Initiation of Gait No hesitancy Right Foot Step Does pass stance foot Length Right Foot Step Does not clear floor Height Left Foot Step Does not pass stance foot Length Left Foot Step Completely clears floor Height Step Description Step Symmetry Step length not equal Step Continuity Stopping or discontinuity Gait Description Path Description Mild/moderate deviation Trunk Description Marked sway or uses aide Walking Stance Heels together Scoring and Interpretation Tinetti Composite 14 Score (points) Interpretation of High risk for falls(< 19) Scores Tinetti Impairment 40 to <60% Impaired (Score 12-16) Rating from Composite Score PT-OP-E Functional Tests Start: 02/18/25 12:52 Freq: Status: Active Protocol: Document 02/18/25 12:15 DCW (Rec: 02/18/25 12:59 DCW [id number]) Functional Tests 2 Minute Walk Test Distance 86' Device Used LB 30 Second Sit to Stand Test Score x6 repetitions Timed Up and Go (TUG) Score 41.33 Comments [facility] PT-OP-G Mobility & Gait Start: 02/18/25 12:52 Freq: Status: Active Protocol: Document 02/18/25 12:15 DCW (Rec: 02/18/25 16:04 DCW [id number]) OP Gait Assessment Gait Gait Assistance Standby Assistance Required: Distance (Feet) 86 Assistive Devices Assistive Device Large Based Quad Cane Orthotic/Prosthetic Yes Devices or Brace: Gait Deviations General Gait Pattern Ataxic,Decreased Stride Length,Decreased Feet Clearance ,Flexed Trunk,Lateral Trunk Lean,Narrow Based Gait,Step -to Gait Factors Limiting Gait Function Factors Limiting Decreased Activity Tolerance,Decreased Strength, Gait Function Incoordination,Limited Range of Motion,Pain,Poor Balance,Poor Safety Awareness PT-OP-M Strength Start: 02/18/25 12:52 Freq: Status: Active Protocol: Document 02/18/25 12:15 DCW (Rec: 02/18/25 16:04 DCW [id number]) Hip Strength Hip Manual Muscle Testing Right Flexion (L2) 3- Fair- Extension (S1) 4- Good- Abduction 3- Fair- Adduction 3- Fair- Left Flexion (L2) 5 Normal Extension (S1) 4+ Good+ Abduction 4 Good Adduction 4 Good Knee Strength Knee Manual Muscle Testing Right Flexion (S2) 2- Poor- Extension (L3) 3- Fair- Left Flexion (S2) 5 Normal Extension (L3) 5 Normal PT-OP-Q Treatments Start: 02/18/25 12:52 Freq: Status: Active Protocol: Document 04/30/25 14:32 LFG (Rec: 04/30/25 14:24 LFG [id number]) Gym Equipment Shuttle Recovery Unilateral Squats Details tactile cue not lock knee into extension, keep toes on platform Resistance 37# (1 navy) Shuttle Recovery Stable Platform Reps/Time cues for keeping fett on platform, resistance for LLE easy beyond 15 reps Bilateral Squats Resistance 50# (2 navy) Shuttle Recovery Stable Platform Reps/Time cues for knee valgus, keeping feet on platform Neuro Re-Education Treatment Balance Activities Cones Details Cone taps Equipment 4# ankle weights Reps/Duration 1x with, 1x w/o ankle weights Comments CGA, alternating feet, tapping cones - 3 cones each foot, difficulties not knocking over cones with RLE Hurdles Details Hurdles - fwd/sideways Equipment // bars, 4# ankle weights Reps/Duration 5 hurdles Comments SBA/CGA, cues for big steps, and not placing feet directly under marlen for easier clearing Tandem Details Tandem stance Equipment // bars Comments CGA, cues for upright posture, and shifting more weight to back leg PT-OP-T Assessment and Plan Start: 02/18/25 12:52 Freq: Status: Active Protocol: Document 04/30/25 14:32 LFG (Rec: 04/30/25 14:24 LFG [id number]) Physical Therapy Assessment Impairments Impairments Activity Tolerance,Balance,Coordination,Functional Activities,Functional Mobility,Gait,ROM,Strength,Tone Goals Three Impairment Pt Tinetti score of 14/26 indicates an increased risk of falls Prison Goal (LTG) Pt to improve Tinetti score by at least five points to 19/28 in order to demonstrate a reduction in falls risk . LTG Duration 05/19/25 Two Impairment Pt performs six repetitions during 30 second Sit to Stand Prison Goal (LTG) Pt to improve repetitions during 30sStS by at least four to x10 repetitions in order to demonstrate improved activity tolerance 04/19/25: 7 reps in 30 sec LTG Duration 05/19/25 updated 04/19/25 One Impairment Pt does not have an appropriate home exercise program Short Term Goal (STG Pt to be independent and compliant with an appropriate ) HEP STG Duration 03/20/25 Assessment Summary Assessment Patient tolerated todays session well with increased challenges in balance training by adding 4# ankle weights bilaterally. Demonstrations of poor coordination control of the RLE persist but. Continue to focus on strength, activity tolerance, balance and gait training. Physical Therapy Plan Frequency and Duration Frequency of 2x/Week Treatment Plan of Care Start 02/18/25 Date Plan of Care End 05/19/25 Date Therapeutic Interventions Therapeutic Balance Training,Gait Training,Home Exercise Program, Interventions Manual Therapy,Neuromuscular Re-education Next Visit Focus/Plan Next Note Type Treatment Note Next Visit Plan Next: Continue balance challenges and functional strengthening. POC: Balance, gait, activity tolerance, strengthening
--- NOTE | 2025-05-04 14:30 | PT.OTN ---
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 (05/04/25) Personal history of transient ischemic attack (TIA), and cerebral infarction without residual deficits (05/04/25) Physical Therapy Treatment Note PT-OP-A Visit Information Start: 02/18/25 12:52 Freq: Status: Active Protocol: Document 05/04/25 13:48 DCW (Rec: 05/04/25 14:30 DCW [id number]) Out-Patient Physical Therapy Visit Information Visit Information Visit Type Treatment Note Visit Start Time 13:48 Visit Stop Time 14:30 Visit Number 16 Number of SURVEY SUPERVISOR Visits 0 Evaluation Information Evaluation Date 02/18/25 PT-OP-B Current Condition Start: 02/18/25 12:52 Freq: Status: Active Protocol: Document 02/18/25 12:15 DCW (Rec: 02/18/25 13:44 DCW [id number]) Current Condition History of Current Condition Onset Date 11/03/13 Current Complaints s/p CVA, decreased gait, poor balance, weakness History of Current Pt is a 68 year old male who is 11 years s/p CVA which Condition severe right-sided hemiplegia. Pt has been seen at this facility off and on since his CVA, was varying levels of success. Often work on balance, gait, strength, activity tolerance, and functional mobility, and will see some improvement in areas, however there is usually minimal carry-over at home, and pt will frequently hit a plateau, discharge, and then return to PT following a decline in function. Pt is largely non-verbal since his CVA. His reports at today's evaluation that his walking has declined in quality and in speed, and he is much shakier when first standing up. Pt has a left-sided weight-shift to unload hemiplegic right side . Additionally has recently been found to have some fluid around his lungs, has an upcoming appointment in pulmonary. Pt typically not especially thrilled with the idea of PT, but will generally do what is requested . PT-OP-C Subjective Start: 02/18/25 12:52 Freq: Status: Active Protocol: Document 05/04/25 13:48 DCW (Rec: 05/04/25 14:30 DCW [id number]) OP-PT Subjective Patient Comments Patient Comments Pt indicates he is doing well today. PT-OP-D Balance Start: 02/18/25 12:52 Freq: Status: Active Protocol: Document 02/18/25 12:15 DCW (Rec: 02/18/25 12:59 [facility] [id number]) Tinetti Balance Assessment Sitting Balance Sitting Balance Steady, safe Arising from Chair Ability to Arise Able, uses arms to help Attempts to Arise Arises on 1st attempt Standing Balance Immediate Standing Steady with support Balance Standing Balance Steady, wide stance Nudged Response Staggers, catches self Standing with Eyes Steady Closed Turning Step Pattern Turning Discontinuous steps 360 Degrees Stability Turning Unsteady, grabs/staggers 360 Degrees Sitting Down Sitting Down Uses arms or unsteady Gait and Step Initiation of Gait No hesitancy Right Foot Step Does pass stance foot Length Right Foot Step Does not clear floor Height Left Foot Step Does not pass stance foot Length Left Foot Step Completely clears floor Height Step Description Step Symmetry Step length not equal Step Continuity Stopping or discontinuity Gait Description Path Description Mild/moderate deviation Trunk Description Marked sway or uses aide Walking Stance Heels together Scoring and Interpretation Tinetti Composite 14 Score (points) Interpretation of High risk for falls(< 19) Scores Tinetti Impairment 40 to <60% Impaired (Score 12-16) Rating from Composite Score PT-OP-E Functional Tests Start: 02/18/25 12:52 Freq: Status: Active Protocol: Document 02/18/25 12:15 DCW (Rec: 02/18/25 12:59 NCW [id number]) Functional Tests 2 Minute Walk Test Distance 86' Device Used [facility] 30 Second Sit to Stand Test Score x6 repetitions Timed Up and Go (TUG) Score 41.33 Comments [facility] PT-OP-G Mobility & Gait Start: 02/18/25 12:52 Freq: Status: Active Protocol: Document 02/18/25 12:15 DCW (Rec: 02/18/25 16:04 NCW [id number]) OP Gait Assessment Gait Gait Assistance Standby Assistance Required: Distance (Feet) 86 Assistive Devices Assistive Device Large Based Quad Cane Orthotic/Prosthetic Yes Devices or Brace: Gait Deviations General Gait Pattern Ataxic,Decreased Stride Length,Decreased Feet Clearance ,Flexed Trunk,Lateral Trunk Lean,Narrow Based Gait,Step -to Gait Factors Limiting Gait Function Factors Limiting Decreased Activity Tolerance,Decreased Strength, Gait Function Incoordination,Limited Range of Motion,Pain,Poor Balance,Poor Safety Awareness PT-OP-M Strength Start: 02/18/25 12:52 Freq: Status: Active Protocol: Document 02/18/25 12:15 DCW (Rec: 02/18/25 16:04 DCW [id number]) Hip Strength Hip Manual Muscle Testing Right Flexion (L2) 3- Fair- Extension (S1) 4- Good- Abduction 3- Fair- Adduction 3- Fair- Left Flexion (L2) 5 Normal Extension (S1) 4+ Good+ Abduction 4 Good Adduction 4 Good Knee Strength Knee Manual Muscle Testing Right Flexion (S2) 2- Poor- Extension (L3) 3- Fair- Left Flexion (S2) 5 Normal Extension (L3) 5 Normal PT-OP-Q Treatments Start: 02/18/25 12:52 Freq: Status: Active Protocol: Document 05/04/25 13:48 DCW (Rec: 05/04/25 14:30 DCW [id number]) Cardio Equipment Recumbent Stepper (Sci-Fit) Duration (Minutes) 6 Resistance 5 Seat Position Seat 9, Handles at 9 Other NuStep: [employer]NA [employer] Emelyn, 68 spm Gym Equipment Shuttle Recovery Unilateral Squats Details tactile cue not lock knee into extension Resistance 37# (1 navy) Shuttle Recovery Stable Platform Bilateral Squats Resistance 50# (2 navy) Shuttle Recovery Stable Platform Reps/Time c Shuttle Balance red clips Details WBOS, NBOS: head turns/nods Neuro Re-Education Treatment Balance Activities Hurdles Details Hurdles - fwd/sideways Equipment // bars, 4# ankle weights Reps/Duration 6 hurdles Comments SBA/CGA, cues for big steps, and not placing feet directly under marlen for easier clearing PT-OP-T Assessment and Plan Start: 02/18/25 12:52 Freq: Status: Active Protocol: Document 05/04/25 13:48 DCW (Rec: 05/04/25 14:30 DCW [id number]) Physical Therapy Assessment Impairments Impairments Activity Tolerance,Balance,Coordination,Functional Activities,Functional Mobility,Gait,ROM,Strength,Tone Goals Three Impairment Pt Tinetti score of 14/26 indicates an increased risk of falls Residential Goal (LTG) Pt to improve Tinetti score by at least five points to 19/28 in order to demonstrate a reduction in falls risk . LTG Duration 05/19/25 Two Impairment Pt performs six repetitions during 30 second Sit to Stand Auto Winder Goal (LTG) Pt to improve repetitions during 30sStS by at least four to x10 repetitions in order to demonstrate improved activity tolerance 04/19/25: 7 reps in 30 sec LTG Duration 05/19/25 updated 04/19/25 One Impairment Pt does not have an appropriate home exercise program Short Term Goal (STG Pt to be independent and compliant with an appropriate ) HEP STG Duration 03/20/25 Assessment Summary Assessment Pt quite fatigued by end of session, today, right quad began to tremor while side-stepping over hurdles. Continue to work on activity tolerance, gait, strength, and balance. Physical Therapy Plan Frequency and Duration Frequency of 2x/Week Treatment Plan of Care Start 02/18/25 Date Plan of Care End 05/19/25 Date Therapeutic Interventions Therapeutic Balance Training,Gait Training,Home Exercise Program, Interventions Manual Therapy,Neuromuscular Re-education Next Visit Focus/Plan Next Note Type Treatment Note Next Visit Plan Next: Continue balance challenges and functional strengthening. POC: Balance, gait, activity tolerance, strengthening
--- NOTE | 2025-05-04 14:31 | PT.OPPOC ---
Physical, Occupational & Speech Therapy At [facility] 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 (05/11/25) Personal history of transient ischemic attack (TIA), and cerebral infarction without residual deficits (05/11/25) Visit Care Team Role Provider Type Delfino Epstein MD Attending Provider Physician Family Provider Primary Care Provider Referring Provider Specialty: [facility] Practice Address: [address] [place] [address], [address], [facility] Email: [email or web address] Plan Of Care PT-OP-B Current Condition Start: 02/18/25 12:52 Freq: Status: Active Protocol: Document 02/18/25 12:15 DCW (Rec: 02/18/25 13:44 DCW [id number]) Current Condition History of Current Condition Onset Date 11/03/13 Current Complaints s/p CVA, decreased gait, poor balance, weakness History of Current Pt is a 68 year old male who is 11 years s/p CVA which Condition severe right-sided hemiplegia. Pt has been seen at this facility off and on since his CVA, was varying levels of success. Often work on balance, gait, strength, activity tolerance, and functional mobility, and will see some improvement in areas, however there is usually minimal carry-over at home, and pt will frequently hit a plateau, discharge, and then return to PT following a decline in function. Pt is largely non-verbal since his CVA. His reports at today's evaluation that his walking has declined in quality and in speed, and he is much shakier when first standing up. Pt has a left-sided weight-shift to unload hemiplegic right side . Additionally has recently been found to have some fluid around his lungs, has an upcoming appointment in pulmonary. Pt typically not especially thrilled with the idea of PT, but will generally do what is requested . PT-OP-T Assessment and Plan Start: 02/18/25 12:52 Freq: Status: Active Protocol: Document 05/11/25 12:50 DCW (Rec: 05/04/25 14:30 DCW [id number]) Physical Therapy Assessment Impairments Impairments Activity Tolerance,Balance,Coordination,Functional Activities,Functional Mobility,Gait,ROM,Strength,Tone Goals Three Impairment Pt Tinetti score of 14/26 indicates an increased risk of falls Wood Repatcher Goal (LTG) Pt to improve Tinetti score by at least five points to 19/28 in order to demonstrate a reduction in falls risk . LTG Duration 05/19/25 Two Impairment Pt performs six repetitions during 30 second Sit to Stand Wood Repatcher Goal (LTG) Pt to improve repetitions during 30sStS by at least four to x10 repetitions in order to demonstrate improved activity tolerance 04/19/25: 7 reps in 30 sec LTG Duration 05/19/25 updated 04/19/25 One Impairment Pt does not have an appropriate home exercise program Short Term Goal (STG Pt to be independent and compliant with an appropriate ) HEP STG Duration 03/20/25 Assessment Summary Assessment Pt quite fatigued by end of session, today, right quad began to tremor while side-stepping over hurdles. Continue to work on activity tolerance, gait, strength, and balance. Has been demonstrating improvement in activity tolerance, strength, and balance, will plan to reassess Tinetti next visit with evaluating therapist. Physical Therapy Plan Frequency and Duration Frequency of 2x/Week Treatment Plan of Care Start 05/04/25 Date Plan of Care End 06/03/25 Date Therapeutic Interventions Therapeutic Balance Training,Gait Training,Home Exercise Program, Interventions Manual Therapy,Neuromuscular Re-education Next Visit Focus/Plan Next Note Type Treatment Note Next Visit Plan Next: Continue balance challenges and functional strengthening. POC: Balance, gait, activity tolerance, strengthening Plan of Care Dates Plan of Care Start Date 05/04/25 Plan of Care End Date 06/03/25 Electronically Signed by: Jefferson Ceron, PT 05/11/25 0647 If you are in agreement with this Plan of Care, please return a signed and dated copy. I have reviewed this Plan of Care and certify that the skilled therapy services above are required to meet the patient?s needs. Physician Signature Date Printed Name and Credentials Clinical Instructor Signature Printed Name and Credentials
--- NOTE | 2025-05-04 14:31 | PT.OTN ---
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 (05/11/25) Personal history of transient ischemic attack (TIA), and cerebral infarction without residual deficits (05/11/25) Physical Therapy Treatment Note PT-OP-A Visit Information Start: 02/18/25 12:52 Freq: Status: Active Protocol: Document 05/11/25 12:50 DCW (Rec: 05/04/25 14:30 DCW [id number]) Out-Patient Physical Therapy Visit Information Visit Information Visit Type Progress Note Visit Start Time 13:48 Visit Stop Time 14:30 Visit Number 16 Number of RAW STOCK DRIER TENDER Visits 0 Evaluation Information Evaluation Date 02/18/25 PT-OP-B Current Condition Start: 02/18/25 12:52 Freq: Status: Active Protocol: Document 02/18/25 12:15 DCW (Rec: 02/18/25 13:44 DCW [id number]) Current Condition History of Current Condition Onset Date 11/03/13 Current Complaints s/p CVA, decreased gait, poor balance, weakness History of Current Pt is a 68 year old male who is 11 years s/p CVA which Condition severe right-sided hemiplegia. Pt has been seen at this facility off and on since his CVA, was varying levels of success. Often work on balance, gait, strength, activity tolerance, and functional mobility, and will see some improvement in areas, however there is usually minimal carry-over at home, and pt will frequently hit a plateau, discharge, and then return to PT following a decline in function. Pt is largely non-verbal since his CVA. His reports at today's evaluation that his walking has declined in quality and in speed, and he is much shakier when first standing up. Pt has a left-sided weight-shift to unload hemiplegic right side . Additionally has recently been found to have some fluid around his lungs, has an upcoming appointment in pulmonary. Pt typically not especially thrilled with the idea of PT, but will generally do what is requested . PT-OP-C Subjective Start: 02/18/25 12:52 Freq: Status: Active Protocol: Document 05/11/25 12:50 DCW (Rec: 05/04/25 14:30 DCW [id number]) OP-PT Subjective Patient Comments Patient Comments Pt indicates he is doing well today. PT-OP-D Balance Start: 02/18/25 12:52 Freq: Status: Active Protocol: Document 02/18/25 12:15 DCW (Rec: 02/18/25 12:59 [facility] [id number]) Tinetti Balance Assessment Sitting Balance Sitting Balance Steady, safe Arising from Chair Ability to Arise Able, uses arms to help Attempts to Arise Arises on 1st attempt Standing Balance Immediate Standing Steady with support Balance Standing Balance Steady, wide stance Nudged Response Staggers, catches self Standing with Eyes Steady Closed Turning Step Pattern Turning Discontinuous steps 360 Degrees Stability Turning Unsteady, grabs/staggers 360 Degrees Sitting Down Sitting Down Uses arms or unsteady Gait and Step Initiation of Gait No hesitancy Right Foot Step Does pass stance foot Length Right Foot Step Does not clear floor Height Left Foot Step Does not pass stance foot Length Left Foot Step Completely clears floor Height Step Description Step Symmetry Step length not equal Step Continuity Stopping or discontinuity Gait Description Path Description Mild/moderate deviation Trunk Description Marked sway or uses aide Walking Stance Heels together Scoring and Interpretation Tinetti Composite 14 Score (points) Interpretation of High risk for falls(< 19) Scores Tinetti Impairment 40 to <60% Impaired (Score 12-16) Rating from Composite Score PT-OP-E Functional Tests Start: 02/18/25 12:52 Freq: Status: Active Protocol: Document 02/18/25 12:15 DCW (Rec: 02/18/25 12:59 ALW [id number]) Functional Tests 2 Minute Walk Test Distance 86' Device Used [facility] 30 Second Sit to Stand Test Score x6 repetitions Timed Up and Go (TUG) Score 41.33 Comments [facility] PT-OP-G Mobility & Gait Start: 02/18/25 12:52 Freq: Status: Active Protocol: Document 02/18/25 12:15 DCW (Rec: 02/18/25 16:04 ALW [id number]) OP Gait Assessment Gait Gait Assistance Standby Assistance Required: Distance (Feet) 86 Assistive Devices Assistive Device Large Based Quad Cane Orthotic/Prosthetic Yes Devices or Brace: Gait Deviations General Gait Pattern Ataxic,Decreased Stride Length,Decreased Feet Clearance ,Flexed Trunk,Lateral Trunk Lean,Narrow Based Gait,Step -to Gait Factors Limiting Gait Function Factors Limiting Decreased Activity Tolerance,Decreased Strength, Gait Function Incoordination,Limited Range of Motion,Pain,Poor Balance,Poor Safety Awareness PT-OP-M Strength Start: 02/18/25 12:52 Freq: Status: Active Protocol: Document 02/18/25 12:15 DCW (Rec: 02/18/25 16:04 DCW [id number]) Hip Strength Hip Manual Muscle Testing Right Flexion (L2) 3- Fair- Extension (S1) 4- Good- Abduction 3- Fair- Adduction 3- Fair- Left Flexion (L2) 5 Normal Extension (S1) 4+ Good+ Abduction 4 Good Adduction 4 Good Knee Strength Knee Manual Muscle Testing Right Flexion (S2) 2- Poor- Extension (L3) 3- Fair- Left Flexion (S2) 5 Normal Extension (L3) 5 Normal PT-OP-Q Treatments Start: 02/18/25 12:52 Freq: Status: Active Protocol: Document 05/11/25 12:50 DCW (Rec: 05/04/25 14:30 DCW [id number]) Cardio Equipment Recumbent Stepper (Sci-Fit) Duration (Minutes) 6 Resistance 5 Seat Position Seat 9, Handles at 9 Other NuStep: [employer] Emelyn, 66 spm Gym Equipment Shuttle Recovery Unilateral Squats Details tactile cue not lock knee into extension Resistance 37# (1 navy) Shuttle Recovery Stable Platform Bilateral Squats Resistance 50# (2 navy) Shuttle Recovery Stable Platform Reps/Time c Shuttle Balance red clips Details WBOS, NBOS: head turns/nods Neuro Re-Education Treatment Balance Activities Hurdles Details Hurdles - fwd/sideways Equipment // bars, 4# ankle weights Reps/Duration 6 hurdles Comments SBA/CGA, cues for big steps, and not placing feet directly under marlen for easier clearing PT-OP-T Assessment and Plan Start: 02/18/25 12:52 Freq: Status: Active Protocol: Document 05/11/25 12:50 DCW (Rec: 05/04/25 14:30 DCW [id number]) Physical Therapy Assessment Impairments Impairments Activity Tolerance,Balance,Coordination,Functional Activities,Functional Mobility,Gait,ROM,Strength,Tone Goals Three Impairment Pt Tinetti score of 14/26 indicates an increased risk of falls Mcfp Goal (LTG) Pt to improve Tinetti score by at least five points to 19/28 in order to demonstrate a reduction in falls risk . LTG Duration 05/19/25 Two Impairment Pt performs six repetitions during 30 second Sit to Stand Mcfp Goal (LTG) Pt to improve repetitions during 30sStS by at least four to x10 repetitions in order to demonstrate improved activity tolerance 04/19/25: 7 reps in 30 sec LTG Duration 05/19/25 updated 04/19/25 One Impairment Pt does not have an appropriate home exercise program Short Term Goal (STG Pt to be independent and compliant with an appropriate ) HEP STG Duration 03/20/25 Assessment Summary Assessment Pt quite fatigued by end of session, today, right quad began to tremor while side-stepping over hurdles. Continue to work on activity tolerance, gait, strength, and balance. Has been demonstrating improvement in activity tolerance, strength, and balance, will plan to reassess Ruby next visit with evaluating therapist. Physical Therapy Plan Frequency and Duration Frequency of 2x/Week Treatment Plan of Care Start 05/04/25 Date Plan of Care End 06/03/25 Date Therapeutic Interventions Therapeutic Balance Training,Gait Training,Home Exercise Program, Interventions Manual Therapy,Neuromuscular Re-education Next Visit Focus/Plan Next Note Type Treatment Note Next Visit Plan Next: Continue balance challenges and functional strengthening. POC: Balance, gait, activity tolerance, strengthening
--- NOTE | 2025-05-06 15:15 | PT.OTN ---
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 (05/06/25) Personal history of transient ischemic attack (TIA), and cerebral infarction without residual deficits (05/06/25) Physical Therapy Treatment Note PT-OP-A Visit Information Start: 02/18/25 12:52 Freq: Status: Active Protocol: Document 05/06/25 14:34 SP (Rec: 05/06/25 15:35 SP [id number]) Out-Patient Physical Therapy Visit Information Visit Information Visit Type Treatment Note Visit Start Time 14:34 Visit Stop Time 15:15 Visit Number 17 Number of ASSISTANT FITNESS MANAGER Visits 1 Evaluation Information Evaluation Date 02/18/25 PT-OP-B Current Condition Start: 02/18/25 12:52 Freq: Status: Active Protocol: Document 02/18/25 12:15 DCW (Rec: 02/18/25 13:44 DCW [id number]) Current Condition History of Current Condition Onset Date 11/03/13 Current Complaints s/p CVA, decreased gait, poor balance, weakness History of Current Pt is a 68 year old male who is 11 years s/p CVA which Condition severe right-sided hemiplegia. Pt has been seen at this facility off and on since his CVA, was varying levels of success. Often work on balance, gait, strength, activity tolerance, and functional mobility, and will see some improvement in areas, however there is usually minimal carry-over at home, and pt will frequently hit a plateau, discharge, and then return to PT following a decline in function. Pt is largely non-verbal since his CVA. His reports at today's evaluation that his walking has declined in quality and in speed, and he is much shakier when first standing up. Pt has a left-sided weight-shift to unload hemiplegic right side . Additionally has recently been found to have some fluid around his lungs, has an upcoming appointment in pulmonary. Pt typically not especially thrilled with the idea of PT, but will generally do what is requested . PT-OP-C Subjective Start: 02/18/25 12:52 Freq: Status: Active Protocol: Document 05/06/25 14:34 SP (Rec: 05/06/25 15:35 SP [id number]) OP-PT Subjective Patient Comments Patient Comments Pt nodded ok when asked. stated pt's blood sugar has been in low 300s over night, low 200s am, so far 170s before arrived and hasn't eaten much today. He hasn't walked much today. stay and observed full tx. PT-OP-D Balance Start: 02/18/25 12:52 Freq: Status: Active Protocol: Document 02/18/25 12:15 DCW (Rec: 02/18/25 12:59 DCW [id number]) Tinetti Balance Assessment Sitting Balance Sitting Balance Steady, safe Arising from Chair Ability to Arise Able, uses arms to help Attempts to Arise Arises on 1st attempt Standing Balance Immediate Standing Steady with support Balance Standing Balance Steady, wide stance Nudged Response Staggers, catches self Standing with Eyes Steady Closed Turning Step Pattern Turning Discontinuous steps 360 Degrees Stability Turning Unsteady, grabs/staggers 360 Degrees Sitting Down Sitting Down Uses arms or unsteady Gait and Step Initiation of Gait No hesitancy Right Foot Step Does pass stance foot Length Right Foot Step Does not clear floor Height Left Foot Step Does not pass stance foot Length Left Foot Step Completely clears floor Height Step Description Step Symmetry Step length not equal Step Continuity Stopping or discontinuity Gait Description Path Description Mild/moderate deviation Trunk Description Marked sway or uses aide Walking Stance Heels together Scoring and Interpretation Tinetti Composite 14 Score (points) Interpretation of High risk for falls(< 19) Scores Tinetti Impairment 40 to <60% Impaired (Score 12-16) Rating from Composite Score PT-OP-E Functional Tests Start: 02/18/25 12:52 Freq: Status: Active Protocol: Document 02/18/25 12:15 DCW (Rec: 02/18/25 12:59 DCW [id number]) Functional Tests 2 Minute Walk Test Distance 86' Device Used [facility] 30 Second Sit to Stand Test Score x6 repetitions Timed Up and Go (TUG) Score 41.33 Comments [facility] PT-OP-G Mobility & Gait Start: 02/18/25 12:52 Freq: Status: Active Protocol: Document 02/18/25 12:15 DCW (Rec: 02/18/25 16:04 DCW [id number]) OP Gait Assessment Gait Gait Assistance Standby Assistance Required: Distance (Feet) 86 Assistive Devices Assistive Device Large Based Quad Cane Orthotic/Prosthetic Yes Devices or Brace: Gait Deviations General Gait Pattern Ataxic,Decreased Stride Length,Decreased Feet Clearance ,Flexed Trunk,Lateral Trunk Lean,Narrow Based Gait,Step -to Gait Factors Limiting Gait Function Factors Limiting Decreased Activity Tolerance,Decreased Strength, Gait Function Incoordination,Limited Range of Motion,Pain,Poor Balance,Poor Safety Awareness PT-OP-M Strength Start: 02/18/25 12:52 Freq: Status: Active Protocol: Document 02/18/25 12:15 DCW (Rec: 02/18/25 16:04 DCW [id number]) Hip Strength Hip Manual Muscle Testing Right Flexion (L2) 3- Fair- Extension (S1) 4- Good- Abduction 3- Fair- Adduction 3- Fair- Left Flexion (L2) 5 Normal Extension (S1) 4+ Good+ Abduction 4 Good Adduction 4 Good Knee Strength Knee Manual Muscle Testing Right Flexion (S2) 2- Poor- Extension (L3) 3- Fair- Left Flexion (S2) 5 Normal Extension (L3) 5 Normal PT-OP-Q Treatments Start: 02/18/25 12:52 Freq: Status: Active Protocol: Document 05/06/25 14:34 SP (Rec: 05/06/25 15:35 SP [id number]) Cardio Equipment Recumbent Stepper (Sci-Fit) Duration (Minutes) 6 Resistance 5>3 less tension on neck/LUE Seat Position Seat 9, L Handles at 8 Other NuStep: [employer] Emelyn, 82 spm- Gym Equipment Shuttle Recovery Unilateral Squats Details tactile cue not lock knee into extension Resistance 37# (1 navy) Shuttle Recovery Stable Platform Bilateral Squats Resistance 50# (2 navy) Shuttle Recovery Stable Platform Reps/Time c Therapeutic Exercises Sitting Exercises LAQ Sitting Exercise LAQ- pre hurdles Name Side bilateral Resistance 4# ankle weights Equipment Used therapist hand target kick to, 1/2 foam roller under R thigh allowed range Reps/Minutes 2x15 L, 2x10 R Comments good effort end feel range Neuro Re-Education Treatment Balance Activities Hurdles Details Hurdles - fwd/sideways Equipment // bars, 4>2# ankle weights Reps/Duration 6 hurdles, //bars Comments SBA/CGA, cues for big steps, better LEs closer but not under hurdles fwd, challenging lateral after 2 reps AROM 4 hurdles L and full distance R. Foam Details wt shift, WBOS, Head turns L/R up/dwn Equipment // bars hands hover rail, large blue cushion Comments CG-5%A ASSISTANT FITNESS MANAGER, cues to weight bear more into RLE's. PT-OP-T Assessment and Plan Start: 02/18/25 12:52 Freq: Status: Active Protocol: Document 05/06/25 14:34 SP (Rec: 05/06/25 15:35 SP [id number]) Physical Therapy Assessment Goals Three Impairment Pt Tinetti score of 14/26 indicates an increased risk of falls Barrel Painter Goal (LTG) Pt to improve Tinetti score by at least five points to 19/28 in order to demonstrate a reduction in falls risk . LTG Duration 05/19/25 Two Impairment Pt performs six repetitions during 30 second Sit to Stand Fpc Goal (LTG) Pt to improve repetitions during 30sStS by at least four to x10 repetitions in order to demonstrate improved activity tolerance 04/19/25: 7 reps in 30 sec LTG Duration 05/19/25 updated 04/19/25 One Impairment Pt does not have an appropriate home exercise program Short Term Goal (STG Pt to be independent and compliant with an appropriate ) HEP STG Duration 03/20/25 Assessment Summary Assessment Pt demonstrated good effort with increased resistance LAQ seated but lower resistance standing during hurdles due to decreased endurance standing tolerance today and needed seated rest between activities. Pt shortened tx time due to need use of bathroom mid treatment. Physical Therapy Plan Frequency and Duration Frequency of 2x/Week Treatment Plan of Care Start 02/18/25 Date Plan of Care End 05/19/25 Date Therapeutic Interventions Therapeutic Balance Training,Gait Training,Home Exercise Program, Interventions Manual Therapy,Neuromuscular Re-education Next Visit Focus/Plan Next Note Type Treatment Note Next Visit Plan Next: Continue balance challenges and functional strengthening. POC: Balance, gait, activity tolerance, strengthening
--- NOTE | 2025-05-11 12:18 | PT.OTN ---
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 (05/11/25) Personal history of transient ischemic attack (TIA), and cerebral infarction without residual deficits (05/11/25) Physical Therapy Treatment Note PT-OP-A Visit Information Start: 02/18/25 12:52 Freq: Status: Active Protocol: Document 05/11/25 11:38 SP (Rec: 05/11/25 12:43 SP [id number]) Out-Patient Physical Therapy Visit Information Visit Information Visit Type Treatment Note Visit Start Time 11:38 Visit Stop Time 12:18 Visit Number 18 Number of ASSISTANT PROGRAM DIRECTOR Visits 2 Evaluation Information Evaluation Date 02/18/25 PT-OP-B Current Condition Start: 02/18/25 12:52 Freq: Status: Active Protocol: Document 02/18/25 12:15 DCW (Rec: 02/18/25 13:44 DCW [id number]) Current Condition History of Current Condition Onset Date 11/03/13 Current Complaints s/p CVA, decreased gait, poor balance, weakness History of Current Pt is a 68 year old male who is 11 years s/p CVA which Condition severe right-sided hemiplegia. Pt has been seen at this facility off and on since his CVA, was varying levels of success. Often work on balance, gait, strength, activity tolerance, and functional mobility, and will see some improvement in areas, however there is usually minimal carry-over at home, and pt will frequently hit a plateau, discharge, and then return to PT following a decline in function. Pt is largely non-verbal since his CVA. His reports at today's evaluation that his walking has declined in quality and in speed, and he is much shakier when first standing up. Pt has a left-sided weight-shift to unload hemiplegic right side . Additionally has recently been found to have some fluid around his lungs, has an upcoming appointment in pulmonary. Pt typically not especially thrilled with the idea of PT, but will generally do what is requested . PT-OP-C Subjective Start: 02/18/25 12:52 Freq: Status: Active Protocol: Document 05/11/25 11:38 SP (Rec: 05/11/25 12:43 SP [id number]) OP-PT Subjective Patient Comments Patient Comments Pt nodded indicating Yes with a smile when asked if feeling ok today. PT-OP-D Balance Start: 02/18/25 12:52 Freq: Status: Active Protocol: Document 02/18/25 12:15 DCW (Rec: 02/18/25 12:59 WAW [id number]) Tinetti Balance Assessment Sitting Balance Sitting Balance Steady, safe Arising from Chair Ability to Arise Able, uses arms to help Attempts to Arise Arises on 1st attempt Standing Balance Immediate Standing Steady with support Balance Standing Balance Steady, wide stance Nudged Response Staggers, catches self Standing with Eyes Steady Closed Turning Step Pattern Turning Discontinuous steps 360 Degrees Stability Turning Unsteady, grabs/staggers 360 Degrees Sitting Down Sitting Down Uses arms or unsteady Gait and Step Initiation of Gait No hesitancy Right Foot Step Does pass stance foot Length Right Foot Step Does not clear floor Height Left Foot Step Does not pass stance foot Length Left Foot Step Completely clears floor Height Step Description Step Symmetry Step length not equal Step Continuity Stopping or discontinuity Gait Description Path Description Mild/moderate deviation Trunk Description Marked sway or uses aide Walking Stance Heels together Scoring and Interpretation Tinetti Composite 14 Score (points) Interpretation of High risk for falls(< 19) Scores Tinetti Impairment 40 to <60% Impaired (Score 12-16) Rating from Composite Score PT-OP-E Functional Tests Start: 02/18/25 12:52 Freq: Status: Active Protocol: Document 02/18/25 12:15 DCW (Rec: 02/18/25 12:59 WAW [id number]) Functional Tests 2 Minute Walk Test Distance 86' Device Used [facility] 30 Second Sit to Stand Test Score x6 repetitions Timed Up and Go (TUG) Score 41.33 Comments [facility] PT-OP-G Mobility & Gait Start: 02/18/25 12:52 Freq: Status: Active Protocol: Document 02/18/25 12:15 DCW (Rec: 02/18/25 16:04 DCW [id number]) OP Gait Assessment Gait Gait Assistance Standby Assistance Required: Distance (Feet) 86 Assistive Devices Assistive Device Large Based Quad Cane Orthotic/Prosthetic Yes Devices or Brace: Gait Deviations General Gait Pattern Ataxic,Decreased Stride Length,Decreased Feet Clearance ,Flexed Trunk,Lateral Trunk Lean,Narrow Based Gait,Step -to Gait Factors Limiting Gait Function Factors Limiting Decreased Activity Tolerance,Decreased Strength, Gait Function Incoordination,Limited Range of Motion,Pain,Poor Balance,Poor Safety Awareness PT-OP-M Strength Start: 02/18/25 12:52 Freq: Status: Active Protocol: Document 02/18/25 12:15 DCW (Rec: 02/18/25 16:04 DCW [id number]) Hip Strength Hip Manual Muscle Testing Right Flexion (L2) 3- Fair- Extension (S1) 4- Good- Abduction 3- Fair- Adduction 3- Fair- Left Flexion (L2) 5 Normal Extension (S1) 4+ Good+ Abduction 4 Good Adduction 4 Good Knee Strength Knee Manual Muscle Testing Right Flexion (S2) 2- Poor- Extension (L3) 3- Fair- Left Flexion (S2) 5 Normal Extension (L3) 5 Normal PT-OP-Q Treatments Start: 02/18/25 12:52 Freq: Status: Active Protocol: Document 05/11/25 11:38 SP (Rec: 05/11/25 12:43 SP [id number]) Cardio Equipment Recumbent Stepper (Sci-Fit) Duration (Minutes) 5 Resistance 4 less tension on neck/LUE Seat Position Seat 9, L Handles at 8 Other NuStep: LUE & BLEs, 64 spm Gym Equipment Shuttle Recovery Unilateral Squats Details tactile cue not lock knee into extension Resistance 37# (1 navy) L, 25# R Shuttle Recovery Stable Platform Reps/Time 10 Bilateral Squats Resistance 50# (2 navy) Shuttle Recovery Stable Platform Reps/Time c Therapeutic Exercises Standing Exercises Lateral step ups Side bilateral Resistance 2# leg wt LLE, AROM RLE Equipment Used 4 step Reps/Minutes 5 reps each side Comments heavy LUE WB on rail, tactile cues TKE and even WB Resisted Stepping Standing Exercise Lateral Name Side bilateral Resistance Tb #3 latex free band Reps/Minutes 15 ft x2 laps Comments cued //feet, eccentric control LLE going R, required seated rest bwtn sets STS Equipment Used mesh chair Reps/Minutes many reps throughout tx Comments Cues to push off chair w LUE and push through both LE's Neuro Re-Education Treatment Balance Activities Uneven obstacle course Details At L rail Equipment 2 hurdles, foam, 4 step, L HR support Comments RLE leading 2 laps PT-OP-T Assessment and Plan Start: 02/18/25 12:52 Freq: Status: Active Protocol: Document 05/11/25 11:38 SP (Rec: 05/11/25 12:43 SP [id number]) Physical Therapy Assessment Goals Three Impairment Pt Tinetti score of 14/26 indicates an increased risk of falls Wood Inspector Goal (LTG) Pt to improve Tinetti score by at least five points to 19/28 in order to demonstrate a reduction in falls risk . LTG Duration 05/19/25 Two Impairment Pt performs six repetitions during 30 second Sit to Stand Alf Goal (LTG) Pt to improve repetitions during 30sStS by at least four to x10 repetitions in order to demonstrate improved activity tolerance 04/19/25: 7 reps in 30 sec LTG Duration 05/19/25 updated 04/19/25 One Impairment Pt does not have an appropriate home exercise program Short Term Goal (STG Pt to be independent and compliant with an appropriate ) HEP STG Duration 03/20/25 Assessment Summary Assessment Pt good effort during resisted ther ex today, tactile cues for foot/trunk alignment to allow hip abd strengthening during standing activities. Pt decreased endurance, seated rest required between activities. Physical Therapy Plan Frequency and Duration Frequency of 2x/Week Treatment Plan of Care Start 02/18/25 Date Plan of Care End 05/19/25 Date Therapeutic Interventions Therapeutic Balance Training,Gait Training,Home Exercise Program, Interventions Manual Therapy,Neuromuscular Re-education Next Visit Focus/Plan Next Note Type Treatment Note Next Visit Plan PN due 04/26/25, POC 05/19/25. to add more appts. Next: Continue balance challenges and functional strengthening. POC: Balance, gait, activity tolerance, strengthening
--- NOTE | 2025-05-11 12:18 | PT.OTN ---
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 (05/11/25) Personal history of transient ischemic attack (TIA), and cerebral infarction without residual deficits (05/11/25) Physical Therapy Treatment Note PT-OP-A Visit Information Start: 02/18/25 12:52 Freq: Status: Active Protocol: Document 05/11/25 11:38 SP (Rec: 05/11/25 12:43 SP [id number]) Out-Patient Physical Therapy Visit Information Visit Information Visit Type Treatment Note Visit Start Time 11:38 Visit Stop Time 12:18 Visit Number 18 Number of SUPERVISOR [employer] Visits 2 Evaluation Information Evaluation Date 02/18/25 PT-OP-B Current Condition Start: 02/18/25 12:52 Freq: Status: Active Protocol: Document 02/18/25 12:15 DCW (Rec: 02/18/25 13:44 DCW [id number]) Current Condition History of Current Condition Onset Date 11/03/13 Current Complaints s/p CVA, decreased gait, poor balance, weakness History of Current Pt is a 68 year old male who is 11 years s/p CVA which Condition severe right-sided hemiplegia. Pt has been seen at this facility off and on since his CVA, was varying levels of success. Often work on balance, gait, strength, activity tolerance, and functional mobility, and will see some improvement in areas, however there is usually minimal carry-over at home, and pt will frequently hit a plateau, discharge, and then return to PT following a decline in function. Pt is largely non-verbal since his CVA. His reports at today's evaluation that his walking has declined in quality and in speed, and he is much shakier when first standing up. Pt has a left-sided weight-shift to unload hemiplegic right side . Additionally has recently been found to have some fluid around his lungs, has an upcoming appointment in pulmonary. Pt typically not especially thrilled with the idea of PT, but will generally do what is requested . PT-OP-C Subjective Start: 02/18/25 12:52 Freq: Status: Active Protocol: Document 05/11/25 11:38 SP (Rec: 05/11/25 12:43 SP [id number]) OP-PT Subjective Patient Comments Patient Comments Pt nodded indicating Yes with a smile when asked if feeling ok today. PT-OP-D Balance Start: 02/18/25 12:52 Freq: Status: Active Protocol: Document 02/18/25 12:15 DCW (Rec: 02/18/25 12:59 WYW [id number]) Tinetti Balance Assessment Sitting Balance Sitting Balance Steady, safe Arising from Chair Ability to Arise Able, uses arms to help Attempts to Arise Arises on 1st attempt Standing Balance Immediate Standing Steady with support Balance Standing Balance Steady, wide stance Nudged Response Staggers, catches self Standing with Eyes Steady Closed Turning Step Pattern Turning Discontinuous steps 360 Degrees Stability Turning Unsteady, grabs/staggers 360 Degrees Sitting Down Sitting Down Uses arms or unsteady Gait and Step Initiation of Gait No hesitancy Right Foot Step Does pass stance foot Length Right Foot Step Does not clear floor Height Left Foot Step Does not pass stance foot Length Left Foot Step Completely clears floor Height Step Description Step Symmetry Step length not equal Step Continuity Stopping or discontinuity Gait Description Path Description Mild/moderate deviation Trunk Description Marked sway or uses aide Walking Stance Heels together Scoring and Interpretation Tinetti Composite 14 Score (points) Interpretation of High risk for falls(< 19) Scores Tinetti Impairment 40 to <60% Impaired (Score 12-16) Rating from Composite Score PT-OP-E Functional Tests Start: 02/18/25 12:52 Freq: Status: Active Protocol: Document 02/18/25 12:15 DCW (Rec: 02/18/25 12:59 WYW [id number]) Functional Tests 2 Minute Walk Test Distance 86' Device Used [facility] 30 Second Sit to Stand Test Score x6 repetitions Timed Up and Go (TUG) Score 41.33 Comments [facility] PT-OP-G Mobility & Gait Start: 02/18/25 12:52 Freq: Status: Active Protocol: Document 02/18/25 12:15 DCW (Rec: 02/18/25 16:04 DCW [id number]) OP Gait Assessment Gait Gait Assistance Standby Assistance Required: Distance (Feet) 86 Assistive Devices Assistive Device Large Based Quad Cane Orthotic/Prosthetic Yes Devices or Brace: Gait Deviations General Gait Pattern Ataxic,Decreased Stride Length,Decreased Feet Clearance ,Flexed Trunk,Lateral Trunk Lean,Narrow Based Gait,Step -to Gait Factors Limiting Gait Function Factors Limiting Decreased Activity Tolerance,Decreased Strength, Gait Function Incoordination,Limited Range of Motion,Pain,Poor Balance,Poor Safety Awareness PT-OP-M Strength Start: 02/18/25 12:52 Freq: Status: Active Protocol: Document 02/18/25 12:15 DCW (Rec: 02/18/25 16:04 DCW [id number]) Hip Strength Hip Manual Muscle Testing Right Flexion (L2) 3- Fair- Extension (S1) 4- Good- Abduction 3- Fair- Adduction 3- Fair- Left Flexion (L2) 5 Normal Extension (S1) 4+ Good+ Abduction 4 Good Adduction 4 Good Knee Strength Knee Manual Muscle Testing Right Flexion (S2) 2- Poor- Extension (L3) 3- Fair- Left Flexion (S2) 5 Normal Extension (L3) 5 Normal PT-OP-Q Treatments Start: 02/18/25 12:52 Freq: Status: Active Protocol: Document 05/11/25 11:38 SP (Rec: 05/11/25 12:43 SP [id number]) Cardio Equipment Recumbent Stepper (Sci-Fit) Duration (Minutes) 5 Resistance 4 less tension on neck/LUE Seat Position Seat 9, L Handles at 8 Other NuStep: LUE & BLEs, 64 spm Gym Equipment Shuttle Recovery Unilateral Squats Details tactile cue not lock knee into extension Resistance 37# (1 navy) L, 25# R Shuttle Recovery Stable Platform Reps/Time 10 Bilateral Squats Resistance 50# (2 navy) Shuttle Recovery Stable Platform Reps/Time c Therapeutic Exercises Standing Exercises Lateral step ups Side bilateral Resistance 2# leg wt LLE, AROM RLE Equipment Used 4 step Reps/Minutes 5 reps each side Comments heavy LUE WB on rail, tactile cues TKE and even WB Resisted Stepping Standing Exercise Lateral Name Side bilateral Resistance Tb #3 latex free band Reps/Minutes 15 ft x2 laps Comments cued //feet, eccentric control LLE going R, required seated rest bwtn sets STS Equipment Used mesh chair Reps/Minutes many reps throughout tx Comments Cues to push off chair w LUE and push through both LE's Neuro Re-Education Treatment Balance Activities Uneven obstacle course Details At L rail Equipment 2 hurdles, foam, 4 step, L HR support Comments RLE leading 2 laps PT-OP-T Assessment and Plan Start: 02/18/25 12:52 Freq: Status: Active Protocol: Document 05/11/25 11:38 SP (Rec: 05/11/25 12:43 SP [id number]) Physical Therapy Assessment Goals Three Impairment Pt Tinetti score of 14/26 indicates an increased risk of falls Bookkeeping Assistant Goal (LTG) Pt to improve Tinetti score by at least five points to 19/28 in order to demonstrate a reduction in falls risk . LTG Duration 05/19/25 Two Impairment Pt performs six repetitions during 30 second Sit to Stand Custodial Goal (LTG) Pt to improve repetitions during 30sStS by at least four to x10 repetitions in order to demonstrate improved activity tolerance 04/19/25: 7 reps in 30 sec LTG Duration 05/19/25 updated 04/19/25 One Impairment Pt does not have an appropriate home exercise program Short Term Goal (STG Pt to be independent and compliant with an appropriate ) HEP STG Duration 03/20/25 Assessment Summary Assessment Pt good effort during resisted ther ex today, tactile cues for foot/trunk alignment to allow hip abd strengthening during standing activities. Pt decreased endurance, seated rest required between activities. Physical Therapy Plan Frequency and Duration Frequency of 2x/Week Treatment Plan of Care Start 05/04/25 Date Plan of Care End 06/03/25 Date Therapeutic Interventions Therapeutic Balance Training,Gait Training,Home Exercise Program, Interventions Manual Therapy,Neuromuscular Re-education Next Visit Focus/Plan Next Note Type Treatment Note Next Visit Plan PN due 04/26/25, POC 05/19/25. to add more appts. Next: Continue balance challenges and functional strengthening. POC: Balance, gait, activity tolerance, strengthening
--- NOTE | 2025-05-13 11:26 | PT.OTN ---
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 (05/13/25) Personal history of transient ischemic attack (TIA), and cerebral infarction without residual deficits (05/13/25) Physical Therapy Treatment Note PT-OP-A Visit Information Start: 02/18/25 12:52 Freq: Status: Active Protocol: Document 05/13/25 10:46 SP (Rec: 05/13/25 11:27 SP [id number]) Out-Patient Physical Therapy Visit Information Visit Information Visit Type Treatment Note Visit Note Kx Modifier next tx (?) Visit Start Time 10:46 Visit Stop Time 11:26 Visit Number 19 Number of ONLINE TRADER Visits 3 Evaluation Information Evaluation Date 02/18/25 PT-OP-B Current Condition Start: 02/18/25 12:52 Freq: Status: Active Protocol: Document 02/18/25 12:15 DCW (Rec: 02/18/25 13:44 DCW [id number]) Current Condition History of Current Condition Onset Date 11/03/13 Current Complaints s/p CVA, decreased gait, poor balance, weakness History of Current Pt is a 68 year old male who is 11 years s/p CVA which Condition severe right-sided hemiplegia. Pt has been seen at this facility off and on since his CVA, was varying levels of success. Often work on balance, gait, strength, activity tolerance, and functional mobility, and will see some improvement in areas, however there is usually minimal carry-over at home, and pt will frequently hit a plateau, discharge, and then return to PT following a decline in function. Pt is largely non-verbal since his CVA. His reports at today's evaluation that his walking has declined in quality and in speed, and he is much shakier when first standing up. Pt has a left-sided weight-shift to unload hemiplegic right side . Additionally has recently been found to have some fluid around his lungs, has an upcoming appointment in pulmonary. Pt typically not especially thrilled with the idea of PT, but will generally do what is requested . PT-OP-C Subjective Start: 02/18/25 12:52 Freq: Status: Active Protocol: Document 05/13/25 10:46 SP (Rec: 05/13/25 11:27 SP [id number]) OP-PT Subjective Patient Comments Patient Comments Pt's stated needed more appts, today is last scheduled visit, thinks is close to end of 8 visit insurance approval, she states pt can use more PT, not back to endurance with medical set backs including congestion and still having pain that limits his activities used to do, approx 30-50% depending on the day. PT-OP-D Balance Start: 02/18/25 12:52 Freq: Status: Active Protocol: Document 02/18/25 12:15 DCW (Rec: 02/18/25 12:59 DCW [id number]) Tinetti Balance Assessment Sitting Balance Sitting Balance Steady, safe Arising from Chair Ability to Arise Able, uses arms to help Attempts to Arise Arises on 1st attempt Standing Balance Immediate Standing Steady with support Balance Standing Balance Steady, wide stance Nudged Response Staggers, catches self Standing with Eyes Steady Closed Turning Step Pattern Turning Discontinuous steps 360 Degrees Stability Turning Unsteady, grabs/staggers 360 Degrees Sitting Down Sitting Down Uses arms or unsteady Gait and Step Initiation of Gait No hesitancy Right Foot Step Does pass stance foot Length Right Foot Step Does not clear floor Height Left Foot Step Does not pass stance foot Length Left Foot Step Completely clears floor Height Step Description Step Symmetry Step length not equal Step Continuity Stopping or discontinuity Gait Description Path Description Mild/moderate deviation Trunk Description Marked sway or uses aide Walking Stance Heels together Scoring and Interpretation Tinetti Composite 14 Score (points) Interpretation of High risk for falls(< 19) Scores Tinetti Impairment 40 to <60% Impaired (Score 12-16) Rating from Composite Score PT-OP-E Functional Tests Start: 02/18/25 12:52 Freq: Status: Active Protocol: Document 02/18/25 12:15 DCW (Rec: 02/18/25 12:59 DCW [id number]) Functional Tests 2 Minute Walk Test Distance 86' Device Used [facility] 30 Second Sit to Stand Test Score x6 repetitions Timed Up and Go (TUG) Score 41.33 Comments [facility] PT-OP-G Mobility & Gait Start: 02/18/25 12:52 Freq: Status: Active Protocol: Document 02/18/25 12:15 DCW (Rec: 02/18/25 16:04 DCW [id number]) OP Gait Assessment Gait Gait Assistance Standby Assistance Required: Distance (Feet) 86 Assistive Devices Assistive Device Large Based Quad Cane Orthotic/Prosthetic Yes Devices or Brace: Gait Deviations General Gait Pattern Ataxic,Decreased Stride Length,Decreased Feet Clearance ,Flexed Trunk,Lateral Trunk Lean,Narrow Based Gait,Step -to Gait Factors Limiting Gait Function Factors Limiting Decreased Activity Tolerance,Decreased Strength, Gait Function Incoordination,Limited Range of Motion,Pain,Poor Balance,Poor Safety Awareness PT-OP-M Strength Start: 02/18/25 12:52 Freq: Status: Active Protocol: Document 02/18/25 12:15 DCW (Rec: 02/18/25 16:04 DCW [id number]) Hip Strength Hip Manual Muscle Testing Right Flexion (L2) 3- Fair- Extension (S1) 4- Good- Abduction 3- Fair- Adduction 3- Fair- Left Flexion (L2) 5 Normal Extension (S1) 4+ Good+ Abduction 4 Good Adduction 4 Good Knee Strength Knee Manual Muscle Testing Right Flexion (S2) 2- Poor- Extension (L3) 3- Fair- Left Flexion (S2) 5 Normal Extension (L3) 5 Normal PT-OP-Q Treatments Start: 02/18/25 12:52 Freq: Status: Active Protocol: Document 05/13/25 10:46 SP (Rec: 05/13/25 11:27 SP [id number]) Cardio Equipment Recumbent Elliptical ([employer]) Other Nutstep unavailable 7/10 Recumbent Stepper (Sci-Fit) Duration (Minutes) 6 Resistance 3.5> 3 Seat Position 10 Other BLE, LUE- occ reposition RLE on foot plate Therapeutic Exercises Sitting Exercises Hip Abduction Sitting Exercise Seated clamshell Name Side bilateral Resistance GTB L, very weak R today not able to fac movement only trace contraction Reps/Minutes 2x10 reps L, Isometric 3 SH x10 R Comments tactile cue to R VL for engagment- noted engagment and muscle flickering. LAQ Sitting Exercise LAQ- pre hurdles Name Side bilateral Resistance 4# ankle weights Equipment Used 1/2 foam roller under each thigh improved range Reps/Minutes 2x15 ralph Comments good effort end feel range Neuro Re-Education Treatment Balance Activities Putting Details wt shift balance during LUE putting, RUE thumb stabilized hands together. Surface yoga mat Equipment putter Reps/Duration 2x10 reps Comments Cues for wt shift into RLE stability stance and Cones Details Cone taps Surface foam, rail support LUE Equipment 4# ankle weights Reps/Duration 2x 10 reps each LE Comments CGA, alternating feet, tapping cones - 2 cones each foot, difficulties not knocking over cones with RLE PT-OP-T Assessment and Plan Start: 02/18/25 12:52 Freq: Status: Active Protocol: Document 05/13/25 10:46 SP (Rec: 05/13/25 11:27 SP [id number]) Physical Therapy Assessment Goals Three Impairment Pt Tinetti score of 14/26 indicates an increased risk of falls Transport Conductor Goal (LTG) Pt to improve Tinetti score by at least five points to 19/28 in order to demonstrate a reduction in falls risk . LTG Duration 05/19/25 Two Impairment Pt performs six repetitions during 30 second Sit to Stand Care Home Goal (LTG) Pt to improve repetitions during 30sStS by at least four to x10 repetitions in order to demonstrate improved activity tolerance 04/19/25: 7 reps in 30 sec LTG Duration 05/19/25 updated 04/19/25 One Impairment Pt does not have an appropriate home exercise program Short Term Goal (STG Pt to be independent and compliant with an appropriate ) HEP STG Duration 03/20/25 Assessment Summary Assessment Pt good effort during resisted ther ex today, target to move to during LAQ. Inc[employer] uneven surface balance putting, slight retro self recovery CGA. Pt's reports pt still isn't back to prior endurance mobility and activities attended. Pain average 2/10 but some days moderate 50%. He has had some medical set backs with congestion and limits his endurance. Pt would beneift from continued Skilled PT for progression LE strength and balance and increased gait endurance. Physical Therapy Plan Frequency and Duration Frequency of 2x/Week Treatment Plan of Care Start 05/04/25 Date Plan of Care End 06/03/25 Date Therapeutic Interventions Therapeutic Balance Training,Gait Training,Home Exercise Program, Interventions Manual Therapy,Neuromuscular Re-education Next Visit Focus/Plan Next Note Type Treatment Note Next Visit Plan POC 05/19/25, pt on waiting list to see PT to update POC and PN. Next: Continue balance challenges and functional strengthening. POC: Balance, gait, activity tolerance, strengthening
--- NOTE | 2025-06-08 14:32 | PT.OTN ---
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 Pt has been seen at this facility off and on since his CVA, was varying levels of success. Often work on balance, gait, strength, activity tolerance, and functional mobility, and will see some improvement in areas, however there is usually minimal carry-over at home, and pt will frequently hit a plateau, discharge, and then return to PT following a decline in function. Pt is largely non-verbal since his CVA. His reports at today's evaluation that his walking has declined in quality and in speed, and he is much shakier when first standing up. Pt has a left-sided weight-shift to unload hemiplegic right side . Additionally has recently been found to have some fluid around his lungs, has an upcoming appointment in pulmonary. Pt typically not especially thrilled with the idea of PT, but will generally do what is requested . PT-OP-C Subjective Start: 02/18/25 12:52 Freq: Status: Active Protocol: Document 06/08/25 13:45 DCW (Rec: 06/08/25 14:32 DCW [id number]) OP-PT Subjective Patient Comments Patient Comments Pt indicates he is doing well today. PT-OP-D Balance Start: 02/18/25 12:52 Freq: Status: Active Protocol: Document 06/08/25 13:44 DCW (Rec: 06/08/25 14:02 [facility] [id number]) Tinetti Balance Assessment Sitting Balance Sitting Balance Steady, safe Arising from Chair Ability to Arise Able, uses arms to help Attempts to Arise Arises on 1st attempt Standing Balance Immediate Standing Steady with support Balance Standing Balance Narrow stance w/o support Nudged Response Staggers, catches self Standing with Eyes Steady Closed Turning Step Pattern Turning Discontinuous steps 360 Degrees Stability Turning Unsteady, grabs/staggers 360 Degrees Sitting Down Sitting Down Uses arms or unsteady Gait and Step Initiation of Gait No hesitancy Right Foot Step Does pass stance foot Length Right Foot Step Completely clears floor Height Left Foot Step Does not pass stance foot Length Left Foot Step Completely clears floor Height Step Description Step Symmetry Step length not equal Step Continuity Stopping or discontinuity Gait Description Path Description Mild/moderate deviation Trunk Description Marked sway or uses aide Walking Stance Heels together Scoring and Interpretation Tinetti Composite 16 Score (points) Interpretation of High risk for falls(< 19) Scores Tinetti Impairment 40 to <60% Impaired (Score 12-16) Rating from Composite Score PT-OP-E Functional Tests Start: 02/18/25 12:52 Freq: Status: Active Protocol: Document 06/08/25 13:44 DC (Rec: 06/08/25 14:02 [facility] [id number]) Functional Tests 2 Minute Walk Test Distance 105' Device Used [facility] Comments 23% improvement 30 Second Sit to Stand Test Score x9 repetitions Timed Up and Go (TUG) Score 35.72 Comments [facility] PT-OP-G Mobility & Gait Start: 02/18/25 12:52 Freq: Status: Active Protocol: Document 06/08/25 13:44 DCW (Rec: 06/08/25 14:02 [facility] [id number]) OP Gait Assessment Gait Gait Assistance Standby Assistance Required: Distance (Feet) 105 Assistive Devices Assistive Device Large Based Quad Cane Orthotic/Prosthetic Yes Devices or Brace: Gait Deviations General Gait Pattern Ataxic,Decreased Stride Length,Decreased Feet Clearance ,Flexed Trunk,Lateral Trunk Lean,Narrow Based Gait,Step -to Gait Factors Limiting Gait Function Factors Limiting Decreased Activity Tolerance,Decreased Strength, Gait Function Incoordination,Limited Range of Motion,Pain,Poor Balance,Poor Safety Awareness PT-OP-M Strength Start: 02/18/25 12:52 Freq: Status: Active Protocol: Document 06/08/25 13:44 DCW (Rec: 06/08/25 14:02 DCW [id number]) Hip Strength Hip Manual Muscle Testing Right Flexion (L2) 3- Fair- Extension (S1) 4- Good- Abduction 3- Fair- Adduction 3- Fair- Left Flexion (L2) 5 Normal Extension (S1) 4+ Good+ Abduction 4 Good Adduction 4 Good PT-OP-Q Treatments Start: 02/18/25 12:52 Freq: Status: Active Protocol: Document 06/08/25 13:45 DCW (Rec: 06/08/25 14:32 DCW [id number]) Cardio Equipment Recumbent Stepper (Sci-Fit) Duration (Minutes) 6 Resistance 3 Seat Position 10 Other BLE, LUE- occ reposition RLE on foot plate Gym Equipment Shuttle Recovery Unilateral Squats Resistance 25# (1 navy) Shuttle Recovery Stable Platform Reps/Time 10 Bilateral Squats Resistance 50# (2 navy) Shuttle Recovery Stable Platform Reps/Time c Neuro Re-Education Treatment Other Activities Testing Comments Tinetti, TUG, 2MWT, MMT, 30sStS PT-OP-T Assessment and Plan Start: 02/18/25 12:52 Freq: Status: Active Protocol: Document 06/08/25 13:45 DCW (Rec: 06/08/25 14:32 DCW [id number]) Physical Therapy Assessment Goals Three Impairment Pt Tinetti score of 14/26 indicates an increased risk of falls Halfway Goal (LTG) Pt to improve Tinetti score by at least five points to 19/28 in order to demonstrate a reduction in falls risk . 06/08/25: 1625 LTG Duration 09/06/25 - improving Two Impairment Pt performs six repetitions during 30 second Sit to Stand Crown Pouncer Goal (LTG) Pt to improve repetitions during 30sStS by at least four to x10 repetitions in order to demonstrate improved activity tolerance 06/08/25: 9 reps LTG Duration 09/06/25 - improving One Impairment Pt does not have an appropriate home exercise program Short Term Goal (STG Pt to be independent and compliant with an appropriate ) HEP STG Duration 09/06/25 Assessment Summary Assessment Pt made very good progress since last time retesting occurred. 2MWT improved ~23%, 30sStS improved 50%. TUG score improved nearly six seconds. Pt overall making much more progress recently than what he has in the past, motivated to continue with skilled therapy. Physical Therapy Plan Frequency and Duration Frequency of 2x/Week Treatment Plan of Care Start 06/08/25 Date Plan of Care End 09/06/25 Date Therapeutic Interventions Therapeutic Balance Training,Gait Training,Home Exercise Program, Interventions Manual Therapy,Neuromuscular Re-education Next Visit Focus/Plan Next Note Type Treatment Note Next Visit Plan Next: Continue balance challenges and functional strengthening. POC: Balance, gait, activity tolerance, strengthening
--- NOTE | 2025-06-08 14:40 | PT.OPPOC ---
Physical, Occupational & Speech Therapy At [facility] 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 (06/08/25) Personal history of transient ischemic attack (TIA), and cerebral infarction without residual deficits (06/08/25) Visit Care Team Role Provider Type Delfino Epstein MD Attending Provider Physician Family Provider Primary Care Provider Referring Provider Specialty: [facility] Practice Address: [address] [place] [address], [address], [address] Email: [email or web address] Plan Of Care PT-OP-A Visit Information Start: 02/18/25 12:52 Freq: Status: Active Protocol: Document 06/08/25 13:45 DCW (Rec: 06/08/25 14:32 DCW [id number]) Out-Patient Physical Therapy Visit Information Visit Information Visit Type Progress Note Visit Start Time 13:45 Visit Stop Time 14:30 Visit Number 20 Number of BOAT OUTBOARD ENGINE MECHANIC Visits 0 PT-OP-B Current Condition Start: 02/18/25 12:52 Freq: Status: Active Protocol: Document 02/18/25 12:15 DCW (Rec: 02/18/25 13:44 DCW [id number]) Current Condition History of Current Condition Onset Date 11/03/13 Current Complaints s/p CVA, decreased gait, poor balance, weakness History of Current Pt is a 68 year old male who is 11 years s/p CVA which Condition severe right-sided hemiplegia. Pt has been seen at this facility off and on since his CVA, was varying levels of success. Often work on balance, gait, strength, activity tolerance, and functional mobility, and will see some improvement in areas, however there is usually minimal carry-over at home, and pt will frequently hit a plateau, discharge, and then return to PT following a decline in function. Pt is largely non-verbal since his CVA. His reports at today's evaluation that his walking has declined in quality and in speed, and he is much shakier when first standing up. Pt has a left-sided weight-shift to unload hemiplegic right side . Additionally has recently been found to have some fluid around his lungs, has an upcoming appointment in pulmonary. Pt typically not especially thrilled with the idea of PT, but will generally do what is requested . PT-OP-C Subjective Start: 02/18/25 12:52 Freq: Status: Active Protocol: Document 06/08/25 13:45 DCW (Rec: 06/08/25 14:32 DCW [id number]) OP-PT Subjective Patient Comments Patient Comments Pt indicates he is doing well today. PT-OP-D Balance Start: 02/18/25 12:52 Freq: Status: Active Protocol: Document 06/08/25 13:44 DCW (Rec: 06/08/25 14:02 DCW [id number]) Tinetti Balance Assessment Sitting Balance Sitting Balance Steady, safe Arising from Chair Ability to Arise Able, uses arms to help Attempts to Arise Arises on 1st attempt Standing Balance Immediate Standing Steady with support Balance Standing Balance Narrow stance w/o support Nudged Response Staggers, catches self Standing with Eyes Steady Closed Turning Step Pattern Turning Discontinuous steps 360 Degrees Stability Turning Unsteady, grabs/staggers 360 Degrees Sitting Down Sitting Down Uses arms or unsteady Gait and Step Initiation of Gait No hesitancy Right Foot Step Does pass stance foot Length Right Foot Step Completely clears floor Height Left Foot Step Does not pass stance foot Length Left Foot Step Completely clears floor Height Step Description Step Symmetry Step length not equal Step Continuity Stopping or discontinuity Gait Description Path Description Mild/moderate deviation Trunk Description Marked sway or uses aide Walking Stance Heels together Scoring and Interpretation Tinetti Composite 16 Score (points) Interpretation of High risk for falls(< 19) Scores Tinetti Impairment 40 to <60% Impaired (Score 12-16) Rating from Composite Score PT-OP-E Functional Tests Start: 02/18/25 12:52 Freq: Status: Active Protocol: Document 06/08/25 13:44 DCW (Rec: 06/08/25 14:02 DCW [id number]) Functional Tests 2 Minute Walk Test Distance 105' Device Used [facility] Comments 23% improvement 30 Second Sit to Stand Test Score x9 repetitions Timed Up and Go (TUG) Score 35.72 Comments [facility] PT-OP-G Mobility & Gait Start: 02/18/25 12:52 Freq: Status: Active Protocol: Document 06/08/25 13:44 DCW (Rec: 06/08/25 14:02 DCW [id number]) OP Gait Assessment Gait Gait Assistance Standby Assistance Required: Distance (Feet) 105 Assistive Devices Assistive Device Large Based Quad Cane Orthotic/Prosthetic Yes Devices or Brace: Gait Deviations General Gait Pattern Ataxic,Decreased Stride Length,Decreased Feet Clearance ,Flexed Trunk,Lateral Trunk Lean,Narrow Based Gait,Step -to Gait Factors Limiting Gait Function Factors Limiting Decreased Activity Tolerance,Decreased Strength, Gait Function Incoordination,Limited Range of Motion,Pain,Poor Balance,Poor Safety Awareness PT-OP-M Strength Start: 02/18/25 12:52 Freq: Status: Active Protocol: Document 06/08/25 13:44 DCW (Rec: 06/08/25 14:02 [facility] [id number]) Hip Strength Hip Manual Muscle Testing Right Flexion (L2) 3- Fair- Extension (S1) 4- Good- Abduction 3- Fair- Adduction 3- Fair- Left Flexion (L2) 5 Normal Extension (S1) 4+ Good+ Abduction 4 Good Adduction 4 Good PT-OP-Q Treatments Start: 02/18/25 12:52 Freq: Status: Active Protocol: Document 06/08/25 13:45 DCW (Rec: 06/08/25 14:32 [facility] [id number]) Cardio Equipment Recumbent Stepper (Sci-Fit) Duration (Minutes) 6 Resistance 3 Seat Position 10 Other BLE, LUE- occ reposition RLE on foot plate Gym Equipment Shuttle Recovery Unilateral Squats Resistance 25# (1 navy) Shuttle Recovery Stable Platform Reps/Time 10 Bilateral Squats Resistance 50# (2 navy) Shuttle Recovery Stable Platform Reps/Time c Neuro Re-Education Treatment Other Activities Testing Comments Tinetti, TUG, 2MWT, MMT, 30sStS PT-OP-T Assessment and Plan Start: 02/18/25 12:52 Freq: Status: Active Protocol: Document 06/08/25 13:45 DCW (Rec: 06/08/25 14:32 [facility] [id number]) Physical Therapy Assessment Goals Three Impairment Pt Tinetti score of 14/26 indicates an increased risk of falls Bit Sander Goal (LTG) Pt to improve Tinetti score by at least five points to 19/28 in order to demonstrate a reduction in falls risk . 06/08/25: LTG Duration 09/06/25 - improving Two Impairment Pt performs six repetitions during 30 second Sit to Stand Bit Sander Goal (LTG) Pt to improve repetitions during 30sStS by at least four to x10 repetitions in order to demonstrate improved activity tolerance 06/08/25: 9 reps LTG Duration 09/06/25 - improving One Impairment Pt does not have an appropriate home exercise program Short Term Goal (STG Pt to be independent and compliant with an appropriate ) HEP STG Duration 09/06/25 Assessment Summary Assessment Pt made very good progress since last time retesting occurred. 2MWT improved ~23%, 30sStS improved 50%. TUG score improved nearly six seconds. Pt overall making much more progress recently than what he has in the past, motivated to continue with skilled therapy. Physical Therapy Plan Frequency and Duration Frequency of 2x/Week Treatment Plan of Care Start 06/08/25 Date Plan of Care End 09/06/25 Date Therapeutic Interventions Therapeutic Balance Training,Gait Training,Home Exercise Program, Interventions Manual Therapy,Neuromuscular Re-education Next Visit Focus/Plan Next Note Type Treatment Note Next Visit Plan Next: Continue balance challenges and functional strengthening. POC: Balance, gait, activity tolerance, strengthening Plan of Care Dates Plan of Care Start Date 06/08/25 Plan of Care End Date 09/06/25 Electronically Signed by: Jefferson Ceron, PT 06/08/25 1380 If you are in agreement with this Plan of Care, please return a signed and dated copy. I have reviewed this Plan of Care and certify that the skilled therapy services above are required to meet the patient?s needs. Physician Signature Date Printed Name and Credentials Clinical Instructor Signature Printed Name and Credentials
--- NOTE | 2025-06-16 15:16 | PT.OTN ---
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 (06/16/25) Personal history of transient ischemic attack (TIA), and cerebral infarction without residual deficits (06/16/25) Physical Therapy Treatment Note PT-OP-A Visit Information Start: 02/18/25 12:52 Freq: Status: Active Protocol: Document 06/16/25 14:35 DCW (Rec: 06/16/25 15:16 DCW [id number]) Out-Patient Physical Therapy Visit Information Visit Information Visit Type Treatment Note Visit Start Time 14:35 Visit Stop Time 15:15 Visit Number 21 Number of SLIP COVER MAKER Visits 0 Progress Note Due 07/08/25 Evaluation Information Evaluation Date 02/18/25 PT-OP-B Current Condition Start: 02/18/25 12:52 Freq: Status: Active Protocol: Document 02/18/25 12:15 DCW (Rec: 02/18/25 13:44 DCW [id number]) Current Condition History of Current Condition Onset Date 11/03/13 Current Complaints s/p CVA, decreased gait, poor balance, weakness History of Current Pt is a 68 year old male who is 11 years s/p CVA which Condition severe right-sided hemiplegia. Pt has been seen at this facility off and on since his CVA, was varying levels of success. Often work on balance, gait, strength, activity tolerance, and functional mobility, and will see some improvement in areas, however there is usually minimal carry-over at home, and pt will frequently hit a plateau, discharge, and then return to PT following a decline in function. Pt is largely non-verbal since his CVA. His reports at today's evaluation that his walking has declined in quality and in speed, and he is much shakier when first standing up. Pt has a left-sided weight-shift to unload hemiplegic right side . Additionally has recently been found to have some fluid around his lungs, has an upcoming appointment in pulmonary. Pt typically not especially thrilled with the idea of PT, but will generally do what is requested . PT-OP-C Subjective Start: 02/18/25 12:52 Freq: Status: Active Protocol: Document 06/16/25 14:35 DCW (Rec: 06/16/25 15:16 DCW [id number]) OP-PT Subjective Patient Comments Patient Comments Pt's notes that he has slowed down a bit the past few days. PT-OP-D Balance Start: 02/18/25 12:52 Freq: Status: Active Protocol: Document 06/08/25 13:44 DCW (Rec: 06/08/25 14:02 [facility] [id number]) Tinetti Balance Assessment Sitting Balance Sitting Balance Steady, safe Arising from Chair Ability to Arise Able, uses arms to help Attempts to Arise Arises on 1st attempt Standing Balance Immediate Standing Steady with support Balance Standing Balance Narrow stance w/o support Nudged Response Staggers, catches self Standing with Eyes Steady Closed Turning Step Pattern Turning Discontinuous steps 360 Degrees Stability Turning Unsteady, grabs/staggers 360 Degrees Sitting Down Sitting Down Uses arms or unsteady Gait and Step Initiation of Gait No hesitancy Right Foot Step Does pass stance foot Length Right Foot Step Completely clears floor Height Left Foot Step Does not pass stance foot Length Left Foot Step Completely clears floor Height Step Description Step Symmetry Step length not equal Step Continuity Stopping or discontinuity Gait Description Path Description Mild/moderate deviation Trunk Description Marked sway or uses aide Walking Stance Heels together Scoring and Interpretation Tinetti Composite 16 Score (points) Interpretation of High risk for falls(< 19) Scores Tinetti Impairment 40 to <60% Impaired (Score 12-16) Rating from Composite Score PT-OP-E Functional Tests Start: 02/18/25 12:52 Freq: Status: Active Protocol: Document 06/08/25 13:44 DCW (Rec: 06/08/25 14:02 [facility] [id number]) Functional Tests 2 Minute Walk Test Distance 105' Device Used [facility] Comments 23% improvement 30 Second Sit to Stand Test Score x9 repetitions Timed Up and Go (TUG) Score 35.72 Comments [facility] PT-OP-G Mobility & Gait Start: 02/18/25 12:52 Freq: Status: Active Protocol: Document 06/08/25 13:44 DCW (Rec: 06/08/25 14:02 [facility] [id number]) OP Gait Assessment Gait Gait Assistance Standby Assistance Required: Distance (Feet) 105 Assistive Devices Assistive Device Large Based Quad Cane Orthotic/Prosthetic Yes Devices or Brace: Gait Deviations General Gait Pattern Ataxic,Decreased Stride Length,Decreased Feet Clearance ,Flexed Trunk,Lateral Trunk Lean,Narrow Based Gait,Step -to Gait Factors Limiting Gait Function Factors Limiting Decreased Activity Tolerance,Decreased Strength, Gait Function Incoordination,Limited Range of Motion,Pain,Poor Balance,Poor Safety Awareness PT-OP-M Strength Start: 02/18/25 12:52 Freq: Status: Active Protocol: Document 06/08/25 13:44 DCW (Rec: 06/08/25 14:02 DCW [id number]) Hip Strength Hip Manual Muscle Testing Right Flexion (L2) 3- Fair- Extension (S1) 4- Good- Abduction 3- Fair- Adduction 3- Fair- Left Flexion (L2) 5 Normal Extension (S1) 4+ Good+ Abduction 4 Good Adduction 4 Good PT-OP-Q Treatments Start: 02/18/25 12:52 Freq: Status: Active Protocol: Document 06/16/25 14:35 DCW (Rec: 06/16/25 15:16 DCW [id number]) Cardio Equipment Recumbent Elliptical (NuStep) Duration (Minutes) 6 Resistance 3 Seat Position Seat 10, L UE 9 Gym Equipment Shuttle Recovery Unilateral Squats Resistance 25# (1 navy) Shuttle Recovery Stable Platform Reps/Time 10 Bilateral Squats Resistance 50# (2 navy) Shuttle Recovery Stable Platform Reps/Time c Neuro Re-Education Treatment Balance Activities Cones Details Cone taps Surface foam, rail support LUE Equipment 4# ankle weights Reps/Duration 2x 10 reps each LE Comments CGA, alternating feet, tapping cones - 2 cones each foot, difficulties not knocking over cones with RLE Hurdles Details Hurdles - fwd/sideways Equipment // bars, 5# ankle weights Reps/Duration 3 hurdles, //bars Comments SBA/CGA, cues for big steps Tandem Details Tandem stance Equipment // bars Comments CGA, cues for upright posture, and shifting more weight to back leg PT-OP-T Assessment and Plan Start: 02/18/25 12:52 Freq: Status: Active Protocol: Document 06/16/25 14:35 DCW (Rec: 06/16/25 15:16 DCW [id number]) Physical Therapy Assessment Impairments Impairments Activity Tolerance,Balance,Coordination,Functional Activities,Functional Mobility,Gait,ROM,Strength,Tone Goals Three Impairment Pt Tinetti score of 14/26 indicates an increased risk of falls Education Director Goal (LTG) Pt to improve Tinetti score by at least five points to 19/28 in order to demonstrate a reduction in falls risk . 06/08/25: 16 LTG Duration 09/06/25 - improving Two Impairment Pt performs six repetitions during 30 second Sit to Stand [facility] Goal (LTG) Pt to improve repetitions during 30sStS by at least four to x10 repetitions in order to demonstrate improved activity tolerance 06/08/25: 9 reps LTG Duration 09/06/25 - improving One Impairment Pt does not have an appropriate home exercise program Short Term Goal (STG Pt to be independent and compliant with an appropriate ) HEP STG Duration 09/06/25 Assessment Summary Assessment Pt showing increased fatigue today, taking breaks mid- exercise. Continue to focus on strength, gait, activity tolerance, and balance. Physical Therapy Plan Frequency and Duration Frequency of 2x/Week Treatment Plan of Care Start 06/08/25 Date Plan of Care End 09/06/25 Date Therapeutic Interventions Therapeutic Balance Training,Gait Training,Home Exercise Program, Interventions Manual Therapy,Neuromuscular Re-education Next Visit Focus/Plan Next Note Type Treatment Note Next Visit Plan Next: Continue balance challenges and functional strengthening. POC: Balance, gait, activity tolerance, strengthening
--- NOTE | 2025-07-02 15:13 | PT.OTN ---
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 (07/02/25) Personal history of transient ischemic attack (TIA), and cerebral infarction without residual deficits (07/02/25) Physical Therapy Treatment Note PT-OP-A Visit Information Start: 02/18/25 12:52 Freq: Status: Active Protocol: Document 07/02/25 14:30 DCW (Rec: 07/02/25 15:13 DCW [id number]) Out-Patient Physical Therapy Visit Information Visit Information Visit Type Treatment Note Visit Start Time 14:30 Visit Stop Time 15:15 Visit Number 22 Number of DIRECTOR OF INSTRUCTIONAL TECHNOLOGY Visits 0 Progress Note Due 07/08/25 Evaluation Information Evaluation Date 02/18/25 PT-OP-B Current Condition Start: 02/18/25 12:52 Freq: Status: Active Protocol: Document 02/18/25 12:15 DCW (Rec: 02/18/25 13:44 DCW [id number]) Current Condition History of Current Condition Onset Date 11/03/13 Current Complaints s/p CVA, decreased gait, poor balance, weakness History of Current Pt is a 68 year old male who is 11 years s/p CVA which Condition severe right-sided hemiplegia. Pt has been seen at this facility off and on since his CVA, was varying levels of success. Often work on balance, gait, strength, activity tolerance, and functional mobility, and will see some improvement in areas, however there is usually minimal carry-over at home, and pt will frequently hit a plateau, discharge, and then return to PT following a decline in function. Pt is largely non-verbal since his CVA. His reports at today's evaluation that his walking has declined in quality and in speed, and he is much shakier when first standing up. Pt has a left-sided weight-shift to unload hemiplegic right side . Additionally has recently been found to have some fluid around his lungs, has an upcoming appointment in pulmonary. Pt typically not especially thrilled with the idea of PT, but will generally do what is requested . PT-OP-C Subjective Start: 02/18/25 12:52 Freq: Status: Active Protocol: Document 07/02/25 14:30 DCW (Rec: 07/02/25 15:13 DCW [id number]) OP-PT Subjective Patient Comments Patient Comments Pt indicates he is doing well today. PT-OP-D Balance Start: 02/18/25 12:52 Freq: Status: Active Protocol: Document 06/08/25 13:44 DCW (Rec: 06/08/25 14:02 [facility] [id number]) Tinetti Balance Assessment Sitting Balance Sitting Balance Steady, safe Arising from Chair Ability to Arise Able, uses arms to help Attempts to Arise Arises on 1st attempt Standing Balance Immediate Standing Steady with support Balance Standing Balance Narrow stance w/o support Nudged Response Staggers, catches self Standing with Eyes Steady Closed Turning Step Pattern Turning Discontinuous steps 360 Degrees Stability Turning Unsteady, grabs/staggers 360 Degrees Sitting Down Sitting Down Uses arms or unsteady Gait and Step Initiation of Gait No hesitancy Right Foot Step Does pass stance foot Length Right Foot Step Completely clears floor Height Left Foot Step Does not pass stance foot Length Left Foot Step Completely clears floor Height Step Description Step Symmetry Step length not equal Step Continuity Stopping or discontinuity Gait Description Path Description Mild/moderate deviation Trunk Description Marked sway or uses aide Walking Stance Heels together Scoring and Interpretation Tinetti Composite 16 Score (points) Interpretation of High risk for falls(< 19) Scores Tinetti Impairment 40 to <60% Impaired (Score 12-16) Rating from Composite Score PT-OP-E Functional Tests Start: 02/18/25 12:52 Freq: Status: Active Protocol: Document 06/08/25 13:44 DCW (Rec: 06/08/25 14:02 [facility] [id number]) Functional Tests 2 Minute Walk Test Distance 105' Device Used [facility] Comments 23% improvement 30 Second Sit to Stand Test Score x9 repetitions Timed Up and Go (TUG) Score 35.72 Comments [facility] PT-OP-G Mobility & Gait Start: 02/18/25 12:52 Freq: Status: Active Protocol: Document 06/08/25 13:44 DCW (Rec: 06/08/25 14:02 [facility] [id number]) OP Gait Assessment Gait Gait Assistance Standby Assistance Required: Distance (Feet) 105 Assistive Devices Assistive Device Large Based Quad Cane Orthotic/Prosthetic Yes Devices or Brace: Gait Deviations General Gait Pattern Ataxic,Decreased Stride Length,Decreased Feet Clearance ,Flexed Trunk,Lateral Trunk Lean,Narrow Based Gait,Step -to Gait Factors Limiting Gait Function Factors Limiting Decreased Activity Tolerance,Decreased Strength, Gait Function Incoordination,Limited Range of Motion,Pain,Poor Balance,Poor Safety Awareness PT-OP-M Strength Start: 02/18/25 12:52 Freq: Status: Active Protocol: Document 06/08/25 13:44 DCW (Rec: 06/08/25 14:02 DCW [id number]) Hip Strength Hip Manual Muscle Testing Right Flexion (L2) 3- Fair- Extension (S1) 4- Good- Abduction 3- Fair- Adduction 3- Fair- Left Flexion (L2) 5 Normal Extension (S1) 4+ Good+ Abduction 4 Good Adduction 4 Good PT-OP-Q Treatments Start: 02/18/25 12:52 Freq: Status: Active Protocol: Document 07/02/25 14:30 DCW (Rec: 07/02/25 15:13 DCW [id number]) Cardio Equipment Recumbent Elliptical (NuStep) Duration (Minutes) 6 Resistance 3 Seat Position Seat 10, L UE 9 Gym Equipment Shuttle Recovery Unilateral Squats Resistance 25# (1 navy) Shuttle Recovery Stable Platform Reps/Time 10 Bilateral Squats Resistance 50# (2 navy) Shuttle Recovery Stable Platform Reps/Time c Neuro Re-Education Treatment Balance Activities Cones Details Cone taps Surface foam, rail support LUE Reps/Duration 2x 10 reps each LE Comments CGA, alternating feet, tapping cones - 2 cones each foot, difficulties not knocking over cones with RLE Hurdles Details Hurdles - sideways Equipment // bars, 5# ankle weights Reps/Duration 3 hurdles, //bars Comments SBA/CGA, cues for high steps Tandem Details Tandem stance Equipment // bars Comments CGA, cues for upright posture, and shifting more weight to back leg. Difficulty with R leg back due to significant quad spasming PT-OP-T Assessment and Plan Start: 02/18/25 12:52 Freq: Status: Active Protocol: Document 07/02/25 14:30 DCW (Rec: 07/02/25 15:13 DCW [id number]) Physical Therapy Assessment Impairments Impairments Activity Tolerance,Balance,Coordination,Functional Activities,Functional Mobility,Gait,ROM,Strength,Tone Goals Three Impairment Pt Tinetti score of 14/26 indicates an increased risk of falls Senior Care Goal (LTG) Pt to improve Tinetti score by at least five points to 19/28 in order to demonstrate a reduction in falls risk . 8/5/25: LTG Duration 09/06/25 - improving Two Impairment Pt performs six repetitions during 30 second Sit to Stand Director Specialty Goal (LTG) Pt to improve repetitions during 30sStS by at least four to x10 repetitions in order to demonstrate improved activity tolerance 06/08/25: 9 reps LTG Duration 09/06/25 - improving One Impairment Pt does not have an appropriate home exercise program Short Term Goal (STG Pt to be independent and compliant with an appropriate ) HEP STG Duration 09/06/25 Assessment Summary Assessment Less fatigue today vs last visit, although did fairly quickly give up on use of ankle weights today, removed them himself before toe-tap exercises. Required some cueing for sequencing and upright posture, decreased UE support. Physical Therapy Plan Frequency and Duration Frequency of 2x/Week Treatment Plan of Care Start 06/08/25 Date Plan of Care End 09/06/25 Date Therapeutic Interventions Therapeutic Balance Training,Gait Training,Home Exercise Program, Interventions Manual Therapy,Neuromuscular Re-education Next Visit Focus/Plan Next Note Type Treatment Note Next Visit Plan Next: Continue balance challenges and functional strengthening. POC: Balance, gait, activity tolerance, strengthening
--- NOTE | 2025-07-07 14:28 | PT.OTN ---
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 (07/07/25) Personal history of transient ischemic attack (TIA), and cerebral infarction without residual deficits (07/07/25) Physical Therapy Treatment Note PT-OP-A Visit Information Start: 02/18/25 12:52 Freq: Status: Active Protocol: Document 07/07/25 13:45 DCW (Rec: 07/07/25 14:28 DCW [id number]) Out-Patient Physical Therapy Visit Information Visit Information Visit Type Progress Note Visit Start Time 13:45 Visit Stop Time 14:30 Visit Number 23 Number of EDGING MACHINE CATCHER Visits 0 Progress Note Due 08/06/25 Evaluation Information Evaluation Date 02/18/25 PT-OP-B Current Condition Start: 02/18/25 12:52 Freq: Status: Active Protocol: Document 02/18/25 12:15 DCW (Rec: 02/18/25 13:44 DCW [id number]) Current Condition History of Current Condition Onset Date 11/03/13 Current Complaints s/p CVA, decreased gait, poor balance, weakness History of Current Pt is a 68 year old male who is 11 years s/p CVA which Condition severe right-sided hemiplegia. Pt has been seen at this facility off and on since his CVA, was varying levels of success. Often work on balance, gait, strength, activity tolerance, and functional mobility, and will see some improvement in areas, however there is usually minimal carry-over at home, and pt will frequently hit a plateau, discharge, and then return to PT following a decline in function. Pt is largely non-verbal since his CVA. His reports at today's evaluation that his walking has declined in quality and in speed, and he is much shakier when first standing up. Pt has a left-sided weight-shift to unload hemiplegic right side . Additionally has recently been found to have some fluid around his lungs, has an upcoming appointment in pulmonary. Pt typically not especially thrilled with the idea of PT, but will generally do what is requested . PT-OP-C Subjective Start: 02/18/25 12:52 Freq: Status: Active Protocol: Document 07/07/25 13:45 DCW (Rec: 07/07/25 14:28 DCW [id number]) OP-PT Subjective Patient Comments Patient Comments Pt's notes that he seems to have been doing better the past week or so, less pain and improved mobility. PT-OP-D Balance Start: 02/18/25 12:52 Freq: Status: Active Protocol: Document 06/08/25 13:44 DCW (Rec: 06/08/25 14:02 [facility] [id number]) Tinetti Balance Assessment Sitting Balance Sitting Balance Steady, safe Arising from Chair Ability to Arise Able, uses arms to help Attempts to Arise Arises on 1st attempt Standing Balance Immediate Standing Steady with support Balance Standing Balance Narrow stance w/o support Nudged Response Staggers, catches self Standing with Eyes Steady Closed Turning Step Pattern Turning Discontinuous steps 360 Degrees Stability Turning Unsteady, grabs/staggers 360 Degrees Sitting Down Sitting Down Uses arms or unsteady Gait and Step Initiation of Gait No hesitancy Right Foot Step Does pass stance foot Length Right Foot Step Completely clears floor Height Left Foot Step Does not pass stance foot Length Left Foot Step Completely clears floor Height Step Description Step Symmetry Step length not equal Step Continuity Stopping or discontinuity Gait Description Path Description Mild/moderate deviation Trunk Description Marked sway or uses aide Walking Stance Heels together Scoring and Interpretation Tinetti Composite 16 Score (points) Interpretation of High risk for falls(< 19) Scores Tinetti Impairment 40 to <60% Impaired (Score 12-16) Rating from Composite Score PT-OP-E Functional Tests Start: 02/18/25 12:52 Freq: Status: Active Protocol: Document 06/08/25 13:44 DCW (Rec: 06/08/25 14:02 [facility] [id number]) Functional Tests 2 Minute Walk Test Distance 105' Device Used [facility] Comments 23% improvement 30 Second Sit to Stand Test Score x9 repetitions Timed Up and Go (TUG) Score 35.72 Comments [facility] PT-OP-G Mobility & Gait Start: 02/18/25 12:52 Freq: Status: Active Protocol: Document 06/08/25 13:44 DCW (Rec: 06/08/25 14:02 [facility] [id number]) OP Gait Assessment Gait Gait Assistance Standby Assistance Required: Distance (Feet) 105 Assistive Devices Assistive Device Large Based Quad Cane Orthotic/Prosthetic Yes Devices or Brace: Gait Deviations General Gait Pattern Ataxic,Decreased Stride Length,Decreased Feet Clearance ,Flexed Trunk,Lateral Trunk Lean,Narrow Based Gait,Step -to Gait Factors Limiting Gait Function Factors Limiting Decreased Activity Tolerance,Decreased Strength, Gait Function Incoordination,Limited Range of Motion,Pain,Poor Balance,Poor Safety Awareness PT-OP-M Strength Start: 02/18/25 12:52 Freq: Status: Active Protocol: Document 06/08/25 13:44 DCW (Rec: 06/08/25 14:02 DCW [id number]) Hip Strength Hip Manual Muscle Testing Right Flexion (L2) 3- Fair- Extension (S1) 4- Good- Abduction 3- Fair- Adduction 3- Fair- Left Flexion (L2) 5 Normal Extension (S1) 4+ Good+ Abduction 4 Good Adduction 4 Good PT-OP-Q Treatments Start: 02/18/25 12:52 Freq: Status: Active Protocol: Document 07/07/25 13:45 DCW (Rec: 07/07/25 14:28 DCW [id number]) Cardio Equipment Recumbent Elliptical (NuStep) Duration (Minutes) 6 Resistance 3 Seat Position Seat 10, L UE 9 Gym Equipment Shuttle Recovery Unilateral Squats Resistance 25# (1 navy) Shuttle Recovery Stable Platform Reps/Time 10 Bilateral Squats Resistance 50# (2 navy) Shuttle Recovery Stable Platform Therapeutic Exercises Standing Exercises Hip Abduction Standing Exercise Hip Abduction Name Side bilateral Equipment Used Stance foot on 2 step, // bars Neuro Re-Education Treatment Balance Activities SLS Details SLS Equipment // bars Hurdles Details Hurdles - forward Equipment // bars, 5# ankle weights Reps/Duration 6 hurdles, //bars Comments SBA/CGA, cues for high steps Foam Details EO/EC, Head turns Surface AirEx Equipment // bars PT-OP-T Assessment and Plan Start: 02/18/25 12:52 Freq: Status: Active Protocol: Document 07/07/25 13:45 DCW (Rec: 07/07/25 14:28 DCW [id number]) Physical Therapy Assessment Impairments Impairments Activity Tolerance,Balance,Coordination,Functional Activities,Functional Mobility,Gait,ROM,Strength,Tone Goals Three Impairment Pt Tinetti score of 14/26 indicates an increased risk of falls Nurse Orthopaedic Goal (LTG) Pt to improve Tinetti score by at least five points to 19/28 in order to demonstrate a reduction in falls risk . 06/08/25: LTG Duration 09/06/25 - improving Two Impairment Pt performs six repetitions during 30 second Sit to Stand Nurse Orthopaedic Goal (LTG) Pt to improve repetitions during 30sStS by at least four to x10 repetitions in order to demonstrate improved activity tolerance 06/08/25: 9 reps LTG Duration 09/06/25 - improving One Impairment Pt does not have an appropriate home exercise program Short Term Goal (STG Pt to be independent and compliant with an appropriate ) HEP STG Duration 09/06/25 Assessment Summary Assessment Pt making some progress toward goals, but still limited by aftereffects from CVA and chronicity of condition. Will likely continue to benefit from work on strength, balance, and activity tolerance. Physical Therapy Plan Frequency and Duration Frequency of 2x/Week Treatment Plan of Care Start 06/08/25 Date Plan of Care End 09/06/25 Date Therapeutic Interventions Therapeutic Balance Training,Gait Training,Home Exercise Program, Interventions Manual Therapy,Neuromuscular Re-education Next Visit Focus/Plan Next Note Type Treatment Note Next Visit Plan Next: Continue balance challenges and functional strengthening. POC: Balance, gait, activity tolerance, strengthening
--- NOTE | 2025-07-15 10:32 | PT.OTN ---
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 (07/15/25) Personal history of transient ischemic attack (TIA), and cerebral infarction without residual deficits (07/15/25) Physical Therapy Treatment Note PT-OP-A Visit Information Start: 02/18/25 12:52 Freq: Status: Active Protocol: Document 07/15/25 09:48 DCW (Rec: 07/15/25 10:31 DCW [id number]) Out-Patient Physical Therapy Visit Information Visit Information Visit Type Treatment Note Visit Start Time 09:48 Visit Stop Time 10:30 Visit Number 24 Number of SINGLE NEEDLE TUFTING MACHINE OPERATOR Visits 0 Progress Note Due 08/06/25 Evaluation Information Evaluation Date 02/18/25 PT-OP-B Current Condition Start: 02/18/25 12:52 Freq: Status: Active Protocol: Document 02/18/25 12:15 DCW (Rec: 02/18/25 13:44 DCW [id number]) Current Condition History of Current Condition Onset Date 11/03/13 Current Complaints s/p CVA, decreased gait, poor balance, weakness History of Current Pt is a 68 year old male who is 11 years s/p CVA which Condition severe right-sided hemiplegia. Pt has been seen at this facility off and on since his CVA, was varying levels of success. Often work on balance, gait, strength, activity tolerance, and functional mobility, and will see some improvement in areas, however there is usually minimal carry-over at home, and pt will frequently hit a plateau, discharge, and then return to PT following a decline in function. Pt is largely non-verbal since his CVA. His reports at today's evaluation that his walking has declined in quality and in speed, and he is much shakier when first standing up. Pt has a left-sided weight-shift to unload hemiplegic right side . Additionally has recently been found to have some fluid around his lungs, has an upcoming appointment in pulmonary. Pt typically not especially thrilled with the idea of PT, but will generally do what is requested . PT-OP-C Subjective Start: 02/18/25 12:52 Freq: Status: Active Protocol: Document 07/15/25 09:48 DCW (Rec: 07/15/25 10:31 DCW [id number]) OP-PT Subjective Patient Comments Patient Comments Pt's notes that he was a little shaky yesterday PT-OP-D Balance Start: 02/18/25 12:52 Freq: Status: Active Protocol: Document 06/08/25 13:44 DCW (Rec: 06/08/25 14:02 [facility] [id number]) Tinetti Balance Assessment Sitting Balance Sitting Balance Steady, safe Arising from Chair Ability to Arise Able, uses arms to help Attempts to Arise Arises on 1st attempt Standing Balance Immediate Standing Steady with support Balance Standing Balance Narrow stance w/o support Nudged Response Staggers, catches self Standing with Eyes Steady Closed Turning Step Pattern Turning Discontinuous steps 360 Degrees Stability Turning Unsteady, grabs/staggers 360 Degrees Sitting Down Sitting Down Uses arms or unsteady Gait and Step Initiation of Gait No hesitancy Right Foot Step Does pass stance foot Length Right Foot Step Completely clears floor Height Left Foot Step Does not pass stance foot Length Left Foot Step Completely clears floor Height Step Description Step Symmetry Step length not equal Step Continuity Stopping or discontinuity Gait Description Path Description Mild/moderate deviation Trunk Description Marked sway or uses aide Walking Stance Heels together Scoring and Interpretation Tinetti Composite 16 Score (points) Interpretation of High risk for falls(< 19) Scores Tinetti Impairment 40 to <60% Impaired (Score 12-16) Rating from Composite Score PT-OP-E Functional Tests Start: 02/18/25 12:52 Freq: Status: Active Protocol: Document 06/08/25 13:44 DCW (Rec: 06/08/25 14:02 [facility] [id number]) Functional Tests 2 Minute Walk Test Distance 105' Device Used [facility] Comments 23% improvement 30 Second Sit to Stand Test Score x9 repetitions Timed Up and Go (TUG) Score 35.72 Comments [facility] PT-OP-G Mobility & Gait Start: 02/18/25 12:52 Freq: Status: Active Protocol: Document 06/08/25 13:44 DCW (Rec: 06/08/25 14:02 [facility] [id number]) OP Gait Assessment Gait Gait Assistance Standby Assistance Required: Distance (Feet) 105 Assistive Devices Assistive Device Large Based Quad Cane Orthotic/Prosthetic Yes Devices or Brace: Gait Deviations General Gait Pattern Ataxic,Decreased Stride Length,Decreased Feet Clearance ,Flexed Trunk,Lateral Trunk Lean,Narrow Based Gait,Step -to Gait Factors Limiting Gait Function Factors Limiting Decreased Activity Tolerance,Decreased Strength, Gait Function Incoordination,Limited Range of Motion,Pain,Poor Balance,Poor Safety Awareness PT-OP-M Strength Start: 02/18/25 12:52 Freq: Status: Active Protocol: Document 06/08/25 13:44 DCW (Rec: 06/08/25 14:02 DCW [id number]) Hip Strength Hip Manual Muscle Testing Right Flexion (L2) 3- Fair- Extension (S1) 4- Good- Abduction 3- Fair- Adduction 3- Fair- Left Flexion (L2) 5 Normal Extension (S1) 4+ Good+ Abduction 4 Good Adduction 4 Good PT-OP-Q Treatments Start: 02/18/25 12:52 Freq: Status: Active Protocol: Document 07/15/25 09:48 DCW (Rec: 07/15/25 10:31 DCW [id number]) Cardio Equipment Recumbent Elliptical (NuStep) Duration (Minutes) 6 Resistance 3 Seat Position Seat 10, L UE 9 Other VCs for stride length, meenakshi Gym Equipment Shuttle Balance red clips Details Staggered Stance Neuro Re-Education Treatment Balance Activities Cones Details Cone taps Surface foam, rail support LUE Comments CGA, alternating feet, tapping cones - one cone each foot, difficulties not knocking over cones with RLE VCs to lift R foot higher before tapping Hurdles Details Hurdles - forward Equipment // bars, 5# ankle weights Reps/Duration 6 hurdles, //bars Comments SBA/CGA, cues for high steps Foam Details EO/EC, Head turns Surface AirEx Equipment // bars PT-OP-T Assessment and Plan Start: 02/18/25 12:52 Freq: Status: Active Protocol: Document 07/15/25 09:48 DCW (Rec: 07/15/25 10:31 DCW [id number]) Physical Therapy Assessment Impairments Impairments Activity Tolerance,Balance,Coordination,Functional Activities,Functional Mobility,Gait,ROM,Strength,Tone Goals Three Impairment Pt Tinetti score of 14/26 indicates an increased risk of falls [facility] Goal (LTG) Pt to improve Tinetti score by at least five points to 19/28 in order to demonstrate a reduction in falls risk . 06/08/25: LTG Duration 09/06/25 - improving Two Impairment Pt performs six repetitions during 30 second Sit to Stand Personal Companion Goal (LTG) Pt to improve repetitions during 30sStS by at least four to x10 repetitions in order to demonstrate improved activity tolerance 06/08/25: 9 reps LTG Duration 09/06/25 - improving One Impairment Pt does not have an appropriate home exercise program Short Term Goal (STG Pt to be independent and compliant with an appropriate ) HEP STG Duration 09/06/25 Assessment Summary Assessment Pt struggling with right hip flexion, very weak with added weights. Continue focus on activity tolerance, strength, balance, and gait. Physical Therapy Plan Frequency and Duration Frequency of 2x/Week Treatment Plan of Care Start 06/08/25 Date Plan of Care End 09/06/25 Date Therapeutic Interventions Therapeutic Balance Training,Gait Training,Home Exercise Program, Interventions Manual Therapy,Neuromuscular Re-education Next Visit Focus/Plan Next Note Type Treatment Note Next Visit Plan Next: Continue balance challenges and functional strengthening. POC: Balance, gait, activity tolerance, strengthening
--- NOTE | 2025-08-03 12:59 | PT.OTN ---
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 (08/03/25) Personal history of transient ischemic attack (TIA), and cerebral infarction without residual deficits (08/03/25) Physical Therapy Treatment Note PT-OP-A Visit Information Start: 02/18/25 12:52 Freq: Status: Active Protocol: Document 08/03/25 12:15 DCW (Rec: 08/03/25 12:59 DCW [id number]) Out-Patient Physical Therapy Visit Information Visit Information Visit Type Treatment Note Visit Start Time 12:15 Visit Stop Time 13:00 Visit Number 25 Number of WASTEWATER MANAGER Visits 0 Progress Note Due 08/06/25 Evaluation Information Evaluation Date 02/18/25 PT-OP-B Current Condition Start: 02/18/25 12:52 Freq: Status: Active Protocol: Document 02/18/25 12:15 DCW (Rec: 02/18/25 13:44 DCW [id number]) Current Condition History of Current Condition Onset Date 11/03/13 Current Complaints s/p CVA, decreased gait, poor balance, weakness History of Current Pt is a 68 year old male who is 11 years s/p CVA which Condition severe right-sided hemiplegia. Pt has been seen at this facility off and on since his CVA, was varying levels of success. Often work on balance, gait, strength, activity tolerance, and functional mobility, and will see some improvement in areas, however there is usually minimal carry-over at home, and pt will frequently hit a plateau, discharge, and then return to PT following a decline in function. Pt is largely non-verbal since his CVA. His reports at today's evaluation that his walking has declined in quality and in speed, and he is much shakier when first standing up. Pt has a left-sided weight-shift to unload hemiplegic right side . Additionally has recently been found to have some fluid around his lungs, has an upcoming appointment in pulmonary. Pt typically not especially thrilled with the idea of PT, but will generally do what is requested . PT-OP-C Subjective Start: 02/18/25 12:52 Freq: Status: Active Protocol: Document 08/03/25 12:15 DCW (Rec: 08/03/25 12:59 DCW [id number]) OP-PT Subjective Patient Comments Patient Comments Pt indicates his shoe is tied too tightly today, happier following adjustments. PT-OP-D Balance Start: 02/18/25 12:52 Freq: Status: Active Protocol: Document 06/08/25 13:44 DCW (Rec: 06/08/25 14:02 [facility] [id number]) Tinetti Balance Assessment Sitting Balance Sitting Balance Steady, safe Arising from Chair Ability to Arise Able, uses arms to help Attempts to Arise Arises on 1st attempt Standing Balance Immediate Standing Steady with support Balance Standing Balance Narrow stance w/o support Nudged Response Staggers, catches self Standing with Eyes Steady Closed Turning Step Pattern Turning Discontinuous steps 360 Degrees Stability Turning Unsteady, grabs/staggers 360 Degrees Sitting Down Sitting Down Uses arms or unsteady Gait and Step Initiation of Gait No hesitancy Right Foot Step Does pass stance foot Length Right Foot Step Completely clears floor Height Left Foot Step Does not pass stance foot Length Left Foot Step Completely clears floor Height Step Description Step Symmetry Step length not equal Step Continuity Stopping or discontinuity Gait Description Path Description Mild/moderate deviation Trunk Description Marked sway or uses aide Walking Stance Heels together Scoring and Interpretation Tinetti Composite 16 Score (points) Interpretation of High risk for falls(< 19) Scores Tinetti Impairment 40 to <60% Impaired (Score 12-16) Rating from Composite Score PT-OP-E Functional Tests Start: 02/18/25 12:52 Freq: Status: Active Protocol: Document 06/08/25 13:44 DCW (Rec: 06/08/25 14:02 [facility] [id number]) Functional Tests 2 Minute Walk Test Distance 105' Device Used [facility] Comments 23% improvement 30 Second Sit to Stand Test Score x9 repetitions Timed Up and Go (TUG) Score 35.72 Comments [facility] PT-OP-G Mobility & Gait Start: 02/18/25 12:52 Freq: Status: Active Protocol: Document 06/08/25 13:44 DCW (Rec: 06/08/25 14:02 [facility] [id number]) OP Gait Assessment Gait Gait Assistance Standby Assistance Required: Distance (Feet) 105 Assistive Devices Assistive Device Large Based Quad Cane Orthotic/Prosthetic Yes Devices or Brace: Gait Deviations General Gait Pattern Ataxic,Decreased Stride Length,Decreased Feet Clearance ,Flexed Trunk,Lateral Trunk Lean,Narrow Based Gait,Step -to Gait Factors Limiting Gait Function Factors Limiting Decreased Activity Tolerance,Decreased Strength, Gait Function Incoordination,Limited Range of Motion,Pain,Poor Balance,Poor Safety Awareness PT-OP-M Strength Start: 02/18/25 12:52 Freq: Status: Active Protocol: Document 06/08/25 13:44 DCW (Rec: 06/08/25 14:02 DCW [id number]) Hip Strength Hip Manual Muscle Testing Right Flexion (L2) 3- Fair- Extension (S1) 4- Good- Abduction 3- Fair- Adduction 3- Fair- Left Flexion (L2) 5 Normal Extension (S1) 4+ Good+ Abduction 4 Good Adduction 4 Good PT-OP-Q Treatments Start: 02/18/25 12:52 Freq: Status: Active Protocol: Document 08/03/25 12:15 DCW (Rec: 08/03/25 12:59 DCW [id number]) Cardio Equipment Recumbent Elliptical (NuStep) Duration (Minutes) 6 Resistance 3 Seat Position Seat 10, L UE 9 Other VCs for stride length, meenakshi Gym Equipment Shuttle Recovery Unilateral Squats Resistance 25# Shuttle Recovery Stable Platform Reps/Time 10 Bilateral Squats Resistance 50# Shuttle Recovery Stable Platform Neuro Re-Education Treatment Balance Activities SLS Details SLS Equipment // bars Hurdles Details Hurdles - lateral Equipment // bars, 5# ankle weights Reps/Duration 1 marlen, //bars Comments SBA/CGA, cues for high steps Foam Details Semi-tandem Surface AirEx Equipment // bars Tandem Details Tandem stance Equipment // bars Comments CGA, cues for upright posture, and shifting more weight to back leg. Difficulty with R leg back due to significant quad spasming PT-OP-T Assessment and Plan Start: 02/18/25 12:52 Freq: Status: Active Protocol: Document 08/03/25 12:15 DCW (Rec: 08/03/25 12:59 DCW [id number]) Physical Therapy Assessment Impairments Impairments Activity Tolerance,Balance,Coordination,Functional Activities,Functional Mobility,Gait,ROM,Strength,Tone Goals Three Impairment Pt Tinetti score of 14/26 indicates an increased risk of falls [address] Goal (LTG) Pt to improve Tinetti score by at least five points to 19/28 in order to demonstrate a reduction in falls risk . 06/08/25: LTG Duration 09/06/25 - improving Two Impairment Pt performs six repetitions during 30 second Sit to Stand [address] Goal (LTG) Pt to improve repetitions during 30sStS by at least four to x10 repetitions in order to demonstrate improved activity tolerance 06/08/25: 9 reps LTG Duration 09/06/25 - improving One Impairment Pt does not have an appropriate home exercise program Short Term Goal (STG Pt to be independent and compliant with an appropriate ) HEP STG Duration 09/06/25 Assessment Summary Assessment Pt discharging following next visit secondary to denial of further visits by insurance. Plan to review appropriate HEP with pt and his . Physical Therapy Plan Frequency and Duration Frequency of 2x/Week Treatment Plan of Care Start 06/08/25 Date Plan of Care End 09/06/25 Date Therapeutic Interventions Therapeutic Balance Training,Gait Training,Home Exercise Program, Interventions Manual Therapy,Neuromuscular Re-education Next Visit Focus/Plan Next Note Type Treatment Note Next Visit Plan Next: Continue balance challenges and functional strengthening. POC: Balance, gait, activity tolerance, strengthening
--- NOTE | 2025-08-06 12:59 | PT.OTN ---
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 (08/06/25) Personal history of transient ischemic attack (TIA), and cerebral infarction without residual deficits (08/06/25) Physical Therapy Treatment Note PT-OP-A Visit Information Start: 02/18/25 12:52 Freq: Status: Active Protocol: Document 08/06/25 12:15 DCW (Rec: 08/06/25 12:59 DCW [id number]) Out-Patient Physical Therapy Visit Information Visit Information Visit Type Discharge Summary Visit Start Time 12:15 Visit Stop Time 13:00 Visit Number 26 Number of BLASTING CAP ASSEMBLER Visits 0 Progress Note Due 08/06/25 Evaluation Information Evaluation Date 02/18/25 PT-OP-B Current Condition Start: 02/18/25 12:52 Freq: Status: Active Protocol: Document 02/18/25 12:15 DCW (Rec: 02/18/25 13:44 DCW [id number]) Current Condition History of Current Condition Onset Date 11/03/13 Current Complaints s/p CVA, decreased gait, poor balance, weakness History of Current Pt is a 68 year old male who is 11 years s/p CVA which Condition severe right-sided hemiplegia. Pt has been seen at this facility off and on since his CVA, was varying levels of success. Often work on balance, gait, strength, activity tolerance, and functional mobility, and will see some improvement in areas, however there is usually minimal carry-over at home, and pt will frequently hit a plateau, discharge, and then return to PT following a decline in function. Pt is largely non-verbal since his CVA. His reports at today's evaluation that his walking has declined in quality and in speed, and he is much shakier when first standing up. Pt has a left-sided weight-shift to unload hemiplegic right side . Additionally has recently been found to have some fluid around his lungs, has an upcoming appointment in pulmonary. Pt typically not especially thrilled with the idea of PT, but will generally do what is requested . PT-OP-C Subjective Start: 02/18/25 12:52 Freq: Status: Active Protocol: Document 08/06/25 12:15 DCW (Rec: 08/06/25 12:59 DCW [id number]) OP-PT Subjective Patient Comments Patient Comments Pt indicates he is doing well today. PT-OP-D Balance Start: 02/18/25 12:52 Freq: Status: Active Protocol: Document 06/08/25 13:44 DCW (Rec: 06/08/25 14:02 [facility] [id number]) Tinetti Balance Assessment Sitting Balance Sitting Balance Steady, safe Arising from Chair Ability to Arise Able, uses arms to help Attempts to Arise Arises on 1st attempt Standing Balance Immediate Standing Steady with support Balance Standing Balance Narrow stance w/o support Nudged Response Staggers, catches self Standing with Eyes Steady Closed Turning Step Pattern Turning Discontinuous steps 360 Degrees Stability Turning Unsteady, grabs/staggers 360 Degrees Sitting Down Sitting Down Uses arms or unsteady Gait and Step Initiation of Gait No hesitancy Right Foot Step Does pass stance foot Length Right Foot Step Completely clears floor Height Left Foot Step Does not pass stance foot Length Left Foot Step Completely clears floor Height Step Description Step Symmetry Step length not equal Step Continuity Stopping or discontinuity Gait Description Path Description Mild/moderate deviation Trunk Description Marked sway or uses aide Walking Stance Heels together Scoring and Interpretation Tinetti Composite 16 Score (points) Interpretation of High risk for falls(< 19) Scores Tinetti Impairment 40 to <60% Impaired (Score 12-16) Rating from Composite Score PT-OP-E Functional Tests Start: 02/18/25 12:52 Freq: Status: Active Protocol: Document 06/08/25 13:44 DCW (Rec: 06/08/25 14:02 [facility] [id number]) Functional Tests 2 Minute Walk Test Distance 105' Device Used [facility] Comments 23% improvement 30 Second Sit to Stand Test Score x9 repetitions Timed Up and Go (TUG) Score 35.72 Comments [facility] PT-OP-G Mobility & Gait Start: 02/18/25 12:52 Freq: Status: Active Protocol: Document 06/08/25 13:44 DCW (Rec: 06/08/25 14:02 [facility] [id number]) OP Gait Assessment Gait Gait Assistance Standby Assistance Required: Distance (Feet) 105 Assistive Devices Assistive Device Large Based Quad Cane Orthotic/Prosthetic Yes Devices or Brace: Gait Deviations General Gait Pattern Ataxic,Decreased Stride Length,Decreased Feet Clearance ,Flexed Trunk,Lateral Trunk Lean,Narrow Based Gait,Step -to Gait Factors Limiting Gait Function Factors Limiting Decreased Activity Tolerance,Decreased Strength, Gait Function Incoordination,Limited Range of Motion,Pain,Poor Balance,Poor Safety Awareness PT-OP-M Strength Start: 02/18/25 12:52 Freq: Status: Active Protocol: Document 06/08/25 13:44 DCW (Rec: 06/08/25 14:02 DCW [id number]) Hip Strength Hip Manual Muscle Testing Right Flexion (L2) 3- Fair- Extension (S1) 4- Good- Abduction 3- Fair- Adduction 3- Fair- Left Flexion (L2) 5 Normal Extension (S1) 4+ Good+ Abduction 4 Good Adduction 4 Good PT-OP-Q Treatments Start: 02/18/25 12:52 Freq: Status: Active Protocol: Document 08/06/25 12:15 DCW (Rec: 08/06/25 12:59 DCW [id number]) Cardio Equipment Recumbent Elliptical (NuStep) Duration (Minutes) 6 Resistance 4 Seat Position Seat 10, L UE 9 Other VCs for stride length, [employer] Equipment Shuttle Recovery Unilateral Squats Resistance 25# Shuttle Recovery Stable Platform Reps/Time 10 Bilateral Squats Resistance 50# Shuttle Recovery Stable Platform Therapeutic Exercises Standing Exercises STS Standing Exercise StS Name Equipment Used mesh chair Reps/Minutes many reps throughout tx Comments Cues to push off chair w LUE and push through both LE's Neuro Re-Education Treatment Balance Activities HEP Details HEP review for d/c Comments Staggered Stance, Tandem Stance, NBOS EC, NBOS head turns PT-OP-T Assessment and Plan Start: 02/18/25 12:52 Freq: Status: Active Protocol: Document 08/06/25 12:15 DCW (Rec: 08/06/25 12:59 DCW [id number]) Physical Therapy Assessment Goals Three Impairment Pt Tinetti score of 14/26 indicates an increased risk of falls Reading Efficiency Course Director Goal (LTG) Pt to improve Tinetti score by at least five points to 19/28 in order to demonstrate a reduction in falls risk . 06/08/25: LTG Duration 09/06/25 - improving Two Impairment Pt performs six repetitions during 30 second Sit to Stand Assisted Goal (LTG) Pt to improve repetitions during 30sStS by at least four to x10 repetitions in order to demonstrate improved activity tolerance 06/08/25: 9 reps LTG Duration 09/06/25 - improving One Impairment Pt does not have an appropriate home exercise program Short Term Goal (STG Pt to be independent and compliant with an appropriate ) HEP STG Duration 09/06/25 Assessment Summary Assessment Reviewed HEP to help pt adhere to home program. Pt and feel comfortable performing this, handout provided . Pt discharging form skilled therapy secondary to progress plateau. knows she will need to get a new referral in the future if there is a change in status. Physical Therapy Plan Frequency and Duration Frequency of 2x/Week Treatment Plan of Care Start 06/08/25 Date Plan of Care End 09/06/25 Date Therapeutic Interventions Therapeutic Balance Training,Gait Training,Home Exercise Program, Interventions Manual Therapy,Neuromuscular Re-education Discharge Physical Therapy Discharge Reasons Plateau in Progress Next Visit Focus/Plan Next Note Type Treatment Note Next Visit Plan Next: Continue balance challenges and functional strengthening. POC: Balance, gait, activity tolerance, strengthening
== END 2025-08-09 09:43 | disposition home or self-care (01) ==
LOC: PHYS 12:15
PROVIDERS: Family Provider Family Medicine; PCP Family Medicine; Referring Provider Family Medicine; Visit Provider Family Medicine
DX: I69.359 Hemiplegia and hemiparesis following cerebral infarction affecting unspecified side (principal)
CPT/HCPCS: 97110; 97112; 97163; 97530; 97535

== ENCOUNTER → 2025-08-20 14:14 | Outpatient (CLI) | payer MEDICARE, MEDICAID, SELFPAY ==
[2019-09-02 12:00] VITALS: BMI 23.4
--- NOTE | 2025-08-20 14:15 | DI.CT.S_ITS ---
PROCEDURE: CT CHEST WO CON INDICATIONS: follow up bibasilar fibrosis TECHNIQUE: Noncontrast 5 mm thick sections acquired from the pulmonary apices to the posterior costophrenic angles. 1 mm lung window, 5 mm thick coronal and sagittal and 7 mm axial MIP reformats were then acquired. For radiation dose reduction, the following was used: automated exposure control, adjustment of mA and/or kV according to patient size. COMPARISON: [facility], CT, CT ABDOMEN PELVIS W CON, 01/14/2025, 13:25. [facility], CR, XR CHEST 2V, 08/05/2025, 10:52. [facility], CT, CT CHEST WO CON, 02/13/2025, 12:47. FINDINGS: Image quality: Diagnostic. Lower Neck: No enlarged lymph nodes. Thyroid: No thyroid nodules which require sonographic follow up, per consensus guidelines. Axillae: No enlarged lymph nodes. Chest Wall: Unremarkable. Bones: Unremarkable. Lungs and Pleura: No pneumothorax or pleural effusions. Diffuse ground glass and consolidation involving the bilateral lower lobes and to a lesser extent the right middle lobe and lingula with additional small ground-glass opacities in the right upper lobe. Marked volume loss in the bilateral lower lobes. No discrete solid nodule. Heart: Coronary calcifications and/or stents. 2 lead cardiac pacemaker. Heart size normal. No pericardial effusion. Thoracic Vessels: The aorta and pulmonary arteries demonstrate normal size. Mediastinum and Tayla: No enlarged lymph nodes. Esophagus: No wall thickening. No hiatal hernia. Upper Abdomen: Cholelithiasis and choledocholithiasis in the cystic duct. Simple renal cysts bilaterally which do not require follow-up. IMPRESSION: Extensive consolidation and ground-glass in the lower lungs with volume loss similar to prior. This may represent interstitial lung disease. Dictated by: Robbin Valdez M.D. on 08/20/2025 at 16:30 Approved by: Robbin Valdez M.D. on 08/20/2025 at 16:38
== END ==
PROVIDERS: PCP Family Medicine; Referring Provider Student in an Organized Health Care Education/Training Program; Visit Provider Student in an Organized Health Care Education/Training Program
DX: J84.9 Interstitial pulmonary disease, unspecified (principal); M05.79 Rheumatoid arthritis with rheumatoid factor of multiple sites without organ or systems involvement; T17.908A Unspecified foreign body in respiratory tract, part unspecified causing other injury, initial encounter
CPT/HCPCS: 71250

== ENCOUNTER 2025-08-31 19:52 | Emergency (ER) | payer MEDICARE, MEDICAID, SELFPAY ==
[2019-09-02 12:00] VITALS: BMI 23.4
[2025-08-31 19:56] VITALS: BP 143/81; PULSE 86; RESP 18; TEMP 36.8; O2SAT 100; BMI 240.7
[2025-08-31 21:42] VITALS: PULSE 98; O2SAT 98
[2025-08-31 21:43] VITALS: BP 120/77; PULSE 95; O2SAT 99
[2025-08-31 22:00] VITALS: BP 103/66; PULSE 84; O2SAT 98
[2025-08-31 22:34] VITALS: BP 123/77; PULSE 85; O2SAT 96
[2025-08-31 22:38] LABS: Bilirubin Urine UA NEGATIVE (NEGATIVE); Color Urine UA YELLOW; Glucose Urine UA NEGATIVE (Negative); Ketones Urine UA TRACE (NEGATIVE); Leukocyte Esterase Urine UA 3+ (NEGATIVE); Nitrite Urine UA POSITIVE (Negative); Occult Blood Urine UA 1+ (Negative); Protein Urine UA NEGATIVE (Negative); Specific Gravity Urine UA 1.020 (1.000-1.035); Urobilinogen Urine UA 0.2 E.U./dL (0.2); pH Urine UA 6.0 (4.5-8.0)
[2025-08-31 22:46] LABS: Appearance Urine UA Cloudy
[2025-08-31 22:48] LABS: Culture Indicated Urine Specimen Cultured
--- NOTE | 2025-08-31 23:38 | ED.ABDPAIN ---
HPI - Abdominal Pain General Chief Complaint: Abdominal Pain Stated Complaint: pn in stomach or abd, nonverbal, prev stroke Time Seen by Provider: 08/31/25 23:20 Source: family Mode of arrival: Wheelchair History of Present Illness HPI narrative: 69-year-old male with a history of stroke approximately 15 years ago presents with suprapubic discomfort after having his Zhu catheter removed today. Patient can not give a history due to a stroke he is nonverbal. Approximately 10 days ago the patient had a urine culture done at [facility] that grew out Pseudomonas aeruginosa and he was placed on fosfomycin which he has 1 more dose of to complete the course. Related Data Home Medications ?Medication ?Instructions ?Recorded ?Confirmed multivitamin with minerals 1 tab PO DAILY ##0 06/22/19 03/01/25 lactobacillus combination no.9 4 4,000 mmu cells PO DAILY 03/25/23 03/01/25 billion cell capsule (Adult 50 Plus Probiotic) vitamin B complex (B 1 tab PO DAILY 03/25/23 03/01/25 Complex-Vitamin B12 tablet) adalimumab 40 mg/0.8 mL See Rx Instructions SUBCUT .COMPLEX 02/09/25 03/01/25 subcutaneous syringe kit (Humira) alcohol swabs pad topical DIRECTED 08/05/25 08/05/25 Previous Rx's ?Medication ?Instructions ?Recorded tamsulosin 0.4 mg capsule 0.4 mg PO QPM #90 caps 07/20/19 ketoconazole 2 % topical cream 1 applic topical BID #60 grams 03/09/21 triamcinolone acetonide 0.1 % 1 applic topical BID #80 grams 03/09/21 topical cream nystatin 100,000 unit/gram topical 1 applic topical BID #60 grams 04/04/21 powder insulin syringe-needle U-100 0.3 #100 ea 01/08/22 mL 31 gauge x 5/16 (BD Insulin Syringe Ultra-Fine) cholecalciferol (vitamin D3) 125 125 mcg PO DAILY #90 caps 03/25/23 mcg (5,000 unit) capsule pen needle, diabetic 32 gauge x #150 ea 07/01/23 3/16 (Droplet Pen Needle) blood-glucose,direct marketing analyst,cont #1 ea 10/01/23 (Dexcom G6 Comsec Manager) lisinopril 10 mg tablet 10 mg PO DAILY #90 tabs 11/18/23 dextrose 40 % oral gel 15 g PO Q15M PRN hypoglycemia 03/16/24 #112.5 grams Disabled Parking Permit See Rx Instructions .Route 04/27/24 .COMPLEX #1 ea glucagon 1 mg/0.2 mL subcutaneous 1 mg (0.2 mL) SUBCUT Q20M PRN 04/27/24 solution hypoglycemia #0.2 mL insulin aspart U-100 100 unit/mL 5 unit (0.05 mL) SUBCUT .COMPLEX 08/13/24 (3 mL) subcutaneous pen (Novolog #15 mL FlexPen U-100 Insulin aspart) methotrexate sodium 2.5 mg tablet 20 mg (8 x 2.5 mg) PO QWEEK #12 09/01/24 tabs dabigatran etexilate 150 mg capsule 150 mg PO BID #180 caps 10/22/24 insulin glargine 100 unit/mL (3 20 unit (0.2 mL) SUBCUT QAM #15 mL 11/16/24 mL) subcutaneous pen (Lantus Solostar U-100 Insulin) folic acid 1 mg tablet 3 mg (3 x 1 mg) PO DAILY #90 tabs 01/11/25 metformin 1,000 mg tablet 1,000 mg PO BID #180 tabs 01/11/25 lactulose 20 gram oral packet 20 g PO BID #60 ea 01/13/25 atorvastatin 20 mg tablet 20 mg PO ONCE PM #90 tabs 02/01/25 sertraline 50 mg tablet See Rx Instructions .Route 02/08/25 .COMPLEX #180 tabs omeprazole 40 mg capsule,delayed 40 mg PO DAILY #60 caps 03/01/25 release blood-glucose sensor (Dexcom G6 #3 ea 08/10/25 Sensor device) blood-glucose transmitter (Dexcom #1 ea 08/10/25 G6 Transmitter device) carvedilol 6.25 mg tablet 6.25 mg PO BID #180 tabs 08/19/25 cefdinir 300 mg capsule 300 mg PO BID #14 caps 08/31/25 Allergies Allergy/AdvReac Type Severity Reaction Status Date / Time polyethylene glycol 3350 Allergy Intermediate HIVES Verified 08/30/25 14:48 (From Miralax) amoxicillin Allergy Mild RASH Verified 08/30/25 14:48 erythromycin base Allergy Mild RASH Verified 08/30/25 14:48 famotidine Allergy Mild RASH Verified 08/30/25 14:48 niacin Allergy Mild RASH Verified 08/30/25 14:48 codeine AdvReac Mild NAUSEA Verified 08/30/25 14:48 Review of Systems Review of Systems ROS Unobtainable: All systems reviewed & are unremarkable except as noted in HPI and below Patient History Medical History (Updated 08/31/25 @ 23:57 by Real Mcfarlane MD) ILD (interstitial lung disease) Hyperglycemia Controlled insulin dependent diabetes mellitus CVA (cerebral vascular accident) Facial laceration Weakness Acute hyponatremia Rheumatoid arthritis History of stroke with residual deficit Diabetes mellitus Hyperlipidemia Antiphospholipid antibody syndrome Pacemaker Myocardial infarction Systolic heart failure DVT (deep venous thrombosis) CAD (coronary artery disease) Cardiac arrhythmia Chronic systolic congestive heart failure (09/01/15) Hyperlipidemia (09/01/15) Essential hypertension (09/01/15) Coronary artery disease involving [place] coronary artery of [place] heart without angina pectoris (09/01/15) Cerebrovascular accident (CVA) involving left middle cerebral artery territory (09/01/15) Chronic atrial flutter (09/01/15) Hemiparesis affecting dominant side as late effect of cerebrovascular accident (01/27/15) Aphasia following cerebrovascular disease (01/27/15) Stenosis of left carotid artery (12/22/13) Type 2 diabetes mellitus Surgical History AICD (automatic cardioverter/defibrillator) present History of angioplasty Presence of cardiac pacemaker Social History marital status: household members: spouse and caregiver Smoking Status: Never smoker alcohol intake: never substance use type: does not use Smoking Status: Never smoker alcohol intake frequency: 0-2 drinks per day Exam Narrative Exam Narrative: General: Patient appears to be in no acute distress, acting appropriately , he is nonverbal Head: normocephalic, atraumatic, HEENT: Pupils equal round reactive, eyes tracking well, neck supple, no JVD Heart: regular rate and rhythm, no murmurs, rubs, or gallops heard Lungs: clear to auscultation, no adventitious sounds Abdomen: soft , nontender, nondistended, positive bowel sounds Neurological: no focal neurological signs, decreased movement of right side,nonverbal Initial Vital Signs Initial Vital Signs: Vital Signs Temperature 98.2 F 08/31/25 19:56 Pulse Rate 86 08/31/25 19:56 Respiratory Rate 18 08/31/25 19:56 Blood Pressure 143/81 H 08/31/25 19:56 Pulse Oximetry 100 08/31/25 19:56 Oxygen Delivery Method Room Air 08/31/25 19:56 Course Orders Ordered: ED Orders 08/31/25 22:24 Urinalysis and Microscopic Stat Urine Culture Stat Discontinued Medications Lidocaine HCl (Lidocaine 2% (Glydo) 6 Ml Gel) 6 ml TOP NOW ONE Stop: 09/01/25 00:00 Last Admin: 09/01/25 00:09 Dose: 6 ml Documented By: NARAYAN Vital Signs Vital signs: Vital Signs - 8 hr 08/31/25 22:00 08/31/25 22:00 08/31/25 22:34 Pulse Rate 84 Respiratory Rate Blood Pressure 103/66 123/77 Pulse Oximetry 98 Oxygen Delivery Method 08/31/25 22:34 09/01/25 00:44 Pulse Rate 85 78 Respiratory Rate 15 Blood Pressure 119/77 Pulse Oximetry 96 97 Oxygen Delivery Method Room Air MDM - Abdominal Pain Lab Data Labs: Lab Results 08/31/25 Range/Units 22:24 Urine Color Yellow Urine Appearance Cloudy Urine pH 6.0 (4.5-8.0) Ur Specific [place] 1.020 (1.000-1.035) Urine Protein Negative (Negative) Urine Glucose (UA) Negative (Negative) g/dL Urine Ketones Trace H (NEGATIVE) Urine Occult Blood 1+ H (Negative) Urine Nitrate Positive H (Negative) Urine Bilirubin Negative (NEGATIVE) Urine Urobilinogen 0.2 (0.2) E.U./dL Ur Leukocyte Esterase 3+ H (NEGATIVE) Urine RBC 0-1/hpf (0-5/HPF) Urine WBC 30-100/hpf H (0-5/HPF) Ur Squamous Epith Cells 0-1 /hpf (0-5/HPF) Urine Bacteria Many (>30) H (None) Ur Culture Indicated? Specimen cultured Vol Urine Centrifuged 10ml (spun) MDM Narrative Medical decision making narrative: 69-year-old male with a history of a stroke and just having his catheter removed today felt as if he was having more suprapubic pressure and discomfort after several hours. The patient is also retaining some urine and so a urine catheter was replaced for the patient successfully. Patient also has an active UTI which he has been treated with. Advised to finish the treatment and represcribed cefdinir to complete another course of antibiotics. patient will follow up with Urology. Discharge Plan Departure Patient Disposition: Home Clinical Impression: Acute urinary retention Acute cystitis Qualifiers: Hematuria presence: without hematuria Qualified Code(s): N30.00 - Acute cystitis without hematuria Instructions: DI for Urinary Retention in Men Activity Restrictions/Additional Instructions: Take antibiotics as prescribed. Finish fosfomycin as well. Follow up with Urology for voiding trial. Prescriptions: New cefdinir 300 mg capsule 300 mg PO BID Qty: 14 0RF No Action nystatin 100,000 unit/gram powder 1 applic topical BID Qty: 60 1RF cholecalciferol (vitamin D3) 125 mcg (5,000 unit) capsule 125 mcg PO DAILY Qty: 90 0RF vitamin B complex [B Complex-Vitamin B12] Tablet 1 tab PO DAILY Adult 50 Plus Probiotic 4 billion cell capsule 4,000 mmu cells PO DAILY Rx Instructions: administer with a meal tamsulosin 0.4 mg capsule 0.4 mg PO QPM Qty: 90 3RF ketoconazole 2 % cream 1 applic topical BID Qty: 60 0RF triamcinolone acetonide 0.1 % cream 1 applic topical BID Qty: 80 0RF (DME) insulin syringe-needle U-100 [BD Insulin Syringe Ultra-Fine] 0.3 mL 31 gauge x 5/16 syringe See Rx Instructions .ROUTE .MEDSUPPLY Qty: 100 11RF Rx Instructions: As directed up to 5 times daily for insulin injections (DME) pen needle, diabetic [Droplet Pen Needle] 32 gauge x 3/16 needle See Rx Instructions .ROUTE .COMPLEX Qty: 150 11RF Dose Instruction: USE DIRECTED UP TO 5 TIMES DAILY Rx Instructions: USE DIRECTED UP TO 5 TIMES DAILY lisinopril 10 mg tablet 10 mg PO DAILY Qty: 90 3RF dextrose 40 % gel 15 g PO Q15M PRN (Reason: hypoglycemia) Qty: 112.5 1RF Rx Instructions: until symptoms of low blood sugar are controlled methotrexate sodium 2.5 mg tablet 20 mg PO QWEEK Qty: 12 11RF Rx Instructions: tuesdays dabigatran etexilate 150 mg capsule 150 mg PO BID Qty: 180 1RF metformin 1,000 mg tablet 1,000 mg PO BID Qty: 180 3RF lactulose 20 gram packet 20 g PO BID Qty: 60 3RF atorvastatin 20 mg tablet 20 mg PO ONCE PM Qty: 90 3RF sertraline 50 mg tablet See Rx Instructions .ROUTE .COMPLEX Qty: 180 3RF Dose Instruction: TAKE TWO TABLETS (100MG) BY MOUTH DAILY Rx Instructions: TAKE TWO TABLETS (100MG) BY MOUTH DAILY (DME) Dexcom G6 Sensor Device See Rx Instructions .Route Qty: 3 11RF Rx Instructions: use to check blood sugar daily as directed (DME) Dexcom G6 Transmitter Device See Rx Instructions .Route Qty: 1 11RF Rx Instructions: Use to test blood sugar daily as directed carvedilol 6.25 mg tablet 6.25 mg PO BID Qty: 180 3RF (DME) Dexcom G6 Comsec Manager Misc See Rx Instructions .Route Qty: 1 0RF Rx Instructions: As directed insulin glargine [Lantus Solostar U-100 Insulin] 100 unit/mL (3 mL) insulin pen 20 unit SUBCUT QAM Qty: 15 3RF folic acid 1 mg tablet 3 mg PO DAILY Qty: 90 3RF Humira 40 mg/0.8 mL syringe kit See Rx Instructions SUBCUT .COMPLEX Rx Instructions: inject one - 40 mg/0.8 mL syringe every 2 weeks SUBCUT insulin aspart U-100 [Novolog FlexPen U-100 Insulin] 100 unit/mL (3 mL) insulin pen 5 unit SUBCUT .COMPLEX Qty: 15 3RF Rx Instructions: INJECT SUBCUTANEOUSLY UP TO THREE TIMES DAILY USING SLIDING SCALE. 150-200 1 U;200-250 2 U;250-300 3 U;300-350 4 U;350-400 5 U.; Disabled Parking Permit See Rx Instructions .ROUTE .COMPLEX Qty: 1 0RF Rx Instructions: I find this patient to be medically disabled and qualified for Disabled Parking as indicated, and signed, on the accompanying Disabled Parking Application for Individuals ; glucagon 1 mg/0.2 mL solution 1 mg SUBCUT Q20M PRN (Reason: hypoglycemia) Qty: 0.2 0RF Rx Instructions: until target blood sugar attained alcohol swabs Pads, Medicated topical DIRECTED multivitamin with minerals Tablet 1 tab PO DAILY Qty: 0 omeprazole 40 mg capsule,delayed release(DR/EC) 40 mg PO DAILY Qty: 60 3RF Referrals: Delfino Epstein MD [Primary Care Provider, Family Practice] Stand Alone Forms: Patient Portal/API
[2025-09-01] MEDS: LIDOCAINE 2% (GLYDO) 6 ML GEL TOP (00:09)
[2025-09-01 00:44] VITALS: BP 119/77; PULSE 78; RESP 15; O2SAT 97
== END 2025-09-01 00:45 | disposition home or self-care (01) ==
PROVIDERS: Emergency Medicine; Emergency Provider Family Medicine; PCP Family Medicine
DX: N30.00 Acute cystitis without hematuria (principal); R33.9 Retention of urine, unspecified; B96.5 Pseudomonas (aeruginosa) (mallei) (pseudomallei) as the cause of diseases classified elsewhere; I69.328 Other speech and language deficits following cerebral infarction
CPT/HCPCS: 51702; 81001; 87077; 87086; 87186; 99283

== ENCOUNTER 2025-09-04 02:26 | Inpatient (IN) | payer MEDICARE, MEDICAID, SELFPAY ==
[2019-09-02 12:00] VITALS: BMI 23.4
[2025-09-04] VITALS (20 sets, daily range): BP systolic 89–133; BP diastolic 48–90; PULSE 81–119; RESP 15–24; TEMP 35.9–38.2; O2SAT 91–100; BMI 25.4
--- NOTE | 2025-09-04 02:32 | ED_ITS ---
HPI - Altered Mental Status
--- NOTE | 2025-09-04 02:32 | ED.AMS ---
HPI - Altered Mental Status General Chief Complaint: Altered Mental Status Stated Complaint: Vomiting, Decreased LOC, UTI Time Seen by Provider: 09/04/25 02:32 History of Present Illness HPI narrative: 69-year-old male with a past medical history of stroke with right-sided residual deficits nonverbal now at baseline, antiphospholipid disorder on Pradaxa, CHF with AICD, diabetes, currently with a Zhu catheter for urinary retention on antibiotics comes into the ED from home with medics for evaluation of increased confusion, nausea and vomiting. According to the patient normally able to nod yes no but does not appear to be able to do this. She states that they had Zhu catheter changed this last Saturday and was started on new antibiotic but patient has been acting more confused had episodes of nausea and vomiting but not able to obtain whether or not patient having any pain or discomfort. states he has been compliant with all of his other medications otherwise. Additional ROS HPI limited secondary to patient's baseline nonverbal no secondary to stroke Related Data Home Medications ?Medication ?Instructions ?Recorded ?Confirmed multivitamin with minerals 1 tab PO DAILY ##0 06/22/19 03/01/25 lactobacillus combination no.9 4 4,000 mmu cells PO DAILY 03/25/23 03/01/25 billion cell capsule (Adult 50 Plus Probiotic) vitamin B complex (B 1 tab PO DAILY 03/25/23 03/01/25 Complex-Vitamin B12 tablet) adalimumab 40 mg/0.8 mL See Rx Instructions SUBCUT .COMPLEX 02/09/25 03/01/25 subcutaneous syringe kit (Humira) alcohol swabs pad topical DIRECTED 08/05/25 08/05/25 Previous Rx's ?Medication ?Instructions ?Recorded tamsulosin 0.4 mg capsule 0.4 mg PO QPM #90 caps 07/20/19 ketoconazole 2 % topical cream 1 applic topical BID #60 grams 03/09/21 triamcinolone acetonide 0.1 % 1 applic topical BID #80 grams 03/09/21 topical cream nystatin 100,000 unit/gram topical 1 applic topical BID #60 grams 04/04/21 powder insulin syringe-needle U-100 0.3 #100 ea 01/08/22 mL 31 gauge x 5/16 (BD Insulin Syringe Ultra-Fine) cholecalciferol (vitamin D3) 125 125 mcg PO DAILY #90 caps 03/25/23 mcg (5,000 unit) capsule pen needle, diabetic 32 gauge x #150 ea 07/01/23 3/16 (Droplet Pen Needle) blood-glucose,insulation worker interior surface,cont #1 ea 10/01/23 (Dexcom G6 Inside H[employer] Grower) lisinopril 10 mg tablet 10 mg PO DAILY #90 tabs 11/18/23 dextrose 40 % oral gel 15 g PO Q15M PRN hypoglycemia 03/16/24 #112.5 grams Disabled Parking Permit See Rx Instructions .Route 04/27/24 .COMPLEX #1 ea glucagon 1 mg/0.2 mL subcutaneous 1 mg (0.2 mL) SUBCUT Q20M PRN 04/27/24 solution hypoglycemia #0.2 mL insulin aspart U-100 100 unit/mL 5 unit (0.05 mL) SUBCUT .COMPLEX 08/13/24 (3 mL) subcutaneous pen (Novolog #15 mL FlexPen U-100 Insulin aspart) methotrexate sodium 2.5 mg tablet 20 mg (8 x 2.5 mg) PO QWEEK #12 09/01/24 tabs dabigatran etexilate 150 mg capsule 150 mg PO BID #180 caps 10/22/24 insulin glargine 100 unit/mL (3 20 unit (0.2 mL) SUBCUT QAM #15 mL 11/16/24 mL) subcutaneous pen (Lantus Solostar U-100 Insulin) folic acid 1 mg tablet 3 mg (3 x 1 mg) PO DAILY #90 tabs 01/11/25 metformin 1,000 mg tablet 1,000 mg PO BID #180 tabs 01/11/25 lactulose 20 gram oral packet 20 g PO BID #60 ea 01/13/25 atorvastatin 20 mg tablet 20 mg PO ONCE PM #90 tabs 02/01/25 sertraline 50 mg tablet See Rx Instructions .Route 02/08/25 .COMPLEX #180 tabs omeprazole 40 mg capsule,delayed 40 mg PO DAILY #60 caps 03/01/25 release blood-glucose sensor (Dexcom G6 #3 ea 08/10/25 Sensor device) blood-glucose transmitter (Dexcom #1 ea 08/10/25 G6 Transmitter device) carvedilol 6.25 mg tablet 6.25 mg PO BID #180 tabs 08/19/25 cefdinir 300 mg capsule 300 mg PO BID #14 caps 08/31/25 cefdinir 300 mg capsule 300 mg PO BID #14 caps 09/01/25 Allergies Allergy/AdvReac Type Severity Reaction Status Date / Time polyethylene glycol 3350 Allergy Intermediate HIVES Verified 09/04/25 02:28 (From Miralax) amoxicillin Allergy Mild RASH Verified 09/04/25 02:28 erythromycin base Allergy Mild RASH Verified 09/04/25 02:28 famotidine Allergy Mild RASH Verified 09/04/25 02:28 niacin Allergy Mild RASH Verified 09/04/25 02:28 codeine AdvReac Mild NAUSEA Verified 09/04/25 02:28 Review of Systems Review of Systems ROS Unobtainable: Unobtainable due to mental status/LOC Patient History Medical History (Updated 09/04/25 @ 05:24 by Eric Chu DO) ILD (interstitial lung disease) Hyperglycemia Controlled insulin dependent diabetes mellitus CVA (cerebral vascular accident) Facial laceration Weakness Acute hyponatremia Rheumatoid arthritis History of stroke with residual deficit Diabetes mellitus Hyperlipidemia Antiphospholipid antibody syndrome Pacemaker Myocardial infarction Systolic heart failure DVT (deep venous thrombosis) CAD (coronary artery disease) Cardiac arrhythmia Chronic systolic congestive heart failure (09/01/15) Hyperlipidemia (09/01/15) Essential hypertension (09/01/15) Coronary artery disease involving [place] coronary artery of pamunkey heart without angina pectoris (09/01/15) Cerebrovascular accident (CVA) involving left middle cerebral artery territory (09/01/15) Chronic atrial flutter (09/01/15) Hemiparesis affecting dominant side as late effect of cerebrovascular accident (01/27/15) Aphasia following cerebrovascular disease (01/27/15) Stenosis of left carotid artery (12/22/13) Type 2 diabetes mellitus Surgical History AICD (automatic cardioverter/defibrillator) present History of angioplasty Presence of cardiac pacemaker Social History marital status: household members: spouse and caregiver alcohol intake: never substance use type: does not use alcohol intake frequency: 0-2 drinks per day Exam Narrative Exam Narrative: General: Does appear chronically ill HEENT: Normocephalic, atraumatic, PERRLA, normal sclera, eyelids normal Neck: Active full range of motion, atraumatic Chest: Normal to inspection, negative crepitus, no overlying erythema ecchymosis Respiratory: Normal respiratory effort, not in acute respiratory distress, clear to auscultation bilaterally negative cough, wheeze, tachypnea, rhonchi, rales Cardiology: Regular rate rhythm negative gallop, murmur, rubs GI/: No tenderness to palpation, soft, non rigid, normal to inspection, exam, patient did have stool in his brief, Zhu catheter in place MSK: Full active range of motion in all 4 extremities, atraumatic, no tenderness to palpation of any bony prominences Skin: No rashes or lesions noted Neuro: Right-sided residual deficits contracted, nonverbal at baseline, Psych: Cooperative, negative suicidal or homicidal ideations Initial Vital Signs Initial Vital Signs: Vital Signs Temperature 100.7 F H 09/04/25 02:29 Pulse Rate 119 H 09/04/25 02:29 Respiratory Rate 16 09/04/25 02:29 Blood Pressure 122/72 09/04/25 02:29 Pulse Oximetry 97 09/04/25 02:29 Oxygen Delivery Method Room Air 09/04/25 02:29 Course Orders Ordered: ED Orders 09/04/25 02:35 XR chest 1V Stat Complete Blood Count AUTO DIFF Stat Comprehensive Metabolic Panel Stat Lipase Stat Magnesium Stat NT-proBNP (BNP-Adult 18+) Stat PTT Partial Thromboplastin Rony Stat Prothrombin Time INR Stat Troponin I Stat EKG-12 Lead Stat 09/04/25 02:37 CT abdomen pelvis w con Stat CT head/brain wo con Stat Blood Culture Stat GI Panel (Film Array) Stat Lactate (Lactic Acid) Stat Respiratory Panel (Film Array) Stat Urinalysis and Microscopic Stat 09/04/25 02:51 Urine Culture Stat Sodium Chloride (Normal Saline 0.9%) 2,272.5 mls @ 757.5 mls/hr 30 ml/kg infuse over 3 hr (2272.5 ml) IV NOW ONE Stop: 09/04/25 06:11 Last Admin: 09/04/25 04:09 Dose: 757.5 mls/hr Magnesium Sulfate (Magnesium Sulfate) 2 gm in 50 mls @ 25 mls/hr IV NOW ONE Stop: 09/04/25 05:50 Last Titration: 09/04/25 04:53 Dose: 0 mls/hr Discontinued Medications Meropenem 500 mg/ Sodium (Chloride) 100 mls @ 200 mls/hr IV NOW ONE Stop: 09/04/25 03:18 Last Admin: 09/04/25 04:07 Dose: 200 mls/hr Acetaminophen (Ofirmev) 1,000 mg in 100 mls @ 400 mls/hr IV NOW ONE Stop: 09/04/25 03:32 Last Infusion: 09/04/25 04:28 Dose: Infused Vancomycin HCl 1,500 mg/ (Sodium Chloride) 100 mls @ 100 mls/hr IV NOW ONE Stop: 09/04/25 04:27 Ondansetron HCl (Ondansetron 4 Mg/2 Ml Inj) 4 mg IV NOW ONE Stop: 09/04/25 02:42 Last Admin: 09/04/25 02:45 Dose: 4 mg Vital Signs Vital signs: Vital Signs - 8 hr 09/04/25 02:29 09/04/25 02:58 09/04/25 03:00 Temperature 100.7 F H Pulse Rate 119 H 113 H 112 H Respiratory Rate 16 24 23 Blood Pressure 122/72 Pulse Oximetry 97 98 97 Oxygen Delivery Method Room Air Room Air 09/04/25 03:26 09/04/25 03:26 09/04/25 03:30 Temperature Pulse Rate 109 H 109 H Respiratory Rate 22 21 Blood Pressure 102/60 Pulse Oximetry 91 91 Oxygen Delivery Method 09/04/25 03:30 09/04/25 04:09 09/04/25 04:16 Temperature 100.7 F H Pulse Rate 102 H Respiratory Rate 20 Blood Pressure 92/57 L Pulse Oximetry Oxygen Delivery Method 09/04/25 04:30 Temperature Pulse Rate 95 H Respiratory Rate 20 Blood Pressure Pulse Oximetry 96 Oxygen Delivery Method MDM - Altered Mental Status Lab Data 09/04/25 03:12 09/04/25 03:12 Labs: Lab Results 09/04/25 09/04/25 09/04/25 Range/Units 02:51 02:52 03:12 WBC 18.9 H (4.5-11.0) X10^3/uL RBC 3.75 L (4.5-5.9) X10^6/uL Hgb 12.1 L (13.5-17.5) g/dL Hct 34.7 L (41-53) % MCV 92.6 (80-100) fL MCH 32.2 (26-34) PG MCHC 34.7 (30-36) % RDW 17.1 H (11.6-14.8) % Plt Count 203 (150-400) X10^3/uL Neut % (Auto) 92.5 H (50-75) % Lymph % (Auto) 3.3 L (25-40) % [place] % (Auto) 3.3 (3-14) % Eos % (Auto) 0.4 L (2-4) % Baso % (Auto) 0.5 (0-2) % Neut # (Auto) 80882 H (2156-4541) /uL Lymph # (Auto) 600 L (4553-0989) /uL [place] # (Auto) 600 (0-900) /uL Eos # (Auto) 100 (0-450) /uL Baso # (Auto) 100 (0-100) /uL PT 13.8 H (9.4-12.5) SECONDS INR 1.2 (0.9-1.3) APTT 21 L (25.1-36.5) SECONDS Sodium 122 L (137-145) mmol/L Potassium 4.6 (3.4-5.1) mmol/L Chloride 91 L (98-107) mmol/L Carbon Dioxide 20 L (22-32) mmol/L BUN 19 (9-20) mg/dL Creatinine 0.99 (0.66-1.25) mg/dL Estimated GFR > 60 (>60) mL/min BUN/Creatinine Ratio 19.2 (6-22) Glucose 215 H (70-99) mg/dL Lactate 1.8 (0.7-2.1) mmol/L Calcium 8.5 (8.4-10.2) mg/dL Magnesium 1.3 L (1.6-2.3) mg/dL Total Bilirubin 1.4 H (0.2-1.3) mg/dL AST 59 (17-59) IU/L ALT 37 (<50) IU/L Alkaline Phosphatase 59 (38-126) U/L Troponin I 0.027 (0.01-0.034) ng/mL NT-Pro-B Natriuret Pep 877 H (<125) pg/mL Total Protein 8.1 (6.3-8.2) g/dL Albumin 4.0 (3.5-5.0) g/dL Globulin 4.1 (1.7-4.1) g/dL Albumin/Globulin Ratio 1.0 (1.0-2.8) Lipase 89 (23-300) U/L Urine Color Yellow Urine Appearance Sl cloudy Urine pH 6.0 (4.5-8.0) Ur Specific [place] 1.025 (1.000-1.035) Urine Protein 3+ H (Negative) Urine Glucose (UA) Negative (Negative) g/dL Urine Ketones 2+ H (NEGATIVE) Urine Occult Blood 3+ H (Negative) Urine Nitrate Negative (Negative) Urine Bilirubin Negative (NEGATIVE) Urine Urobilinogen 0.2 (0.2) E.U./dL Ur Leukocyte Esterase 2+ H (NEGATIVE) Urine RBC 1-5/hpf (0-5/HPF) Urine WBC 30-100/hpf H (0-5/HPF) Ur Squamous Epith Cells 0-1 /hpf (0-5/HPF) Urine Bacteria Moderate (10-30) H (None) Ur Culture Indicated? Specimen cultured Vol Urine Centrifuged Low vol <10ml (spun) A Stl C. cayetanensis PCR Not detected (Not Detect) Stool Rotavirus (PCR) Not detected (Not Detect) Stool Adenovirus (PCR) Not detected (Not Detect) Stool Astrovirus (PCR) Not detected (Not Detect) Stool Cryptosporidium PCR Not detected (Not Detect) Stl E.coli Shiga Tox PCR Not detected (Not Detect) St Sh/Enteroin Ecoli PCR Not detected (Not Detect) Stl Enterotoxigenic E PCR Not detected (Not Detect) Stool EPEC (PCR) Not detected (Not Detect) Stl E. histolytica PCR Not detected (Not Detect) Stool Giardia Lamblia PCR Not detected (Not Detect) Stool Sapovirus (PCR) Not detected (Not Detect) Stl P. shigelloides PCR Not detected (Not Detect) St Y.enterocolitica PCR Not detected (Not Detect) Stool Vibrio (PCR) Not detected (Not Detect) Stl Vibrio cholerae PCR Not detected (Not Detect) Stl Enteroaggr Ecoli PCR Not detected (Not Detect) Stl Norovirus GI/GII PCR Detected (Not Detect) Chlamy pneumoniae PCR (Not Detect) Adenovirus (PCR) (Not Detect) B. pertussis DNA (PCR) (Not Detect) B.parapertussis DNA PCR (Not Detecte) Campylobacter (PCR) Not detected (Not Detect) C. difficile Tox (PCR) Not detected (Not Detect) Coronavirus OC43 (PCR) (Not Detect) Coronavirus HKU1 (PCR) (Not Detect) Coronavirus 229E (PCR) (Not Detect) SARS-CoV-2 (PCR) (Not Detecte) Coronavirus NL63 (PCR) (Not Detect) Human Metapneumovir PCR (Not Detect) Influenza Type A (PCR) (Not Detect) Influenza Type B (PCR) (Not Detect) M. pneumoniae (PCR) (Not Detect) Parainfluenza 1 (PCR) (Not Detect) Parainfluenza 2 (PCR) (Not Detect) Parainfluenza 3 (PCR) (Not Detect) Parainfluenza 4 (PCR) (Not Detect) RSV (PCR) (Not Detect) Entero/Rhino (PCR) (Not Detect) Salmonella (PCR) Not detected (Not Detect) 09/04/25 Range/Units 03:25 WBC (4.5-11.0) X10^3/uL RBC (4.5-5.9) X10^6/uL Hgb (13.5-17.5) g/dL Hct (41-53) % MCV (80-100) fL MCH (26-34) PG MCHC (30-36) % RDW (11.6-14.8) % Plt Count (150-400) X10^3/uL Neut % (Auto) (50-75) % Lymph % (Auto) (25-40) % [place] % (Auto) (3-14) % Eos % (Auto) (2-4) % Baso % (Auto) (0-2) % Neut # (Auto) (7212-0591) /uL Lymph # (Auto) (7772-8338) /uL [place] # (Auto) (0-900) /uL Eos # (Auto) (0-450) /uL Baso # (Auto) (0-100) /uL PT (9.4-12.5) SECONDS INR (0.9-1.3) APTT (25.1-36.5) SECONDS Sodium (137-145) mmol/L Potassium (3.4-5.1) mmol/L Chloride (98-107) mmol/L Carbon Dioxide (22-32) mmol/L BUN (9-20) mg/dL Creatinine (0.66-1.25) mg/dL Estimated GFR (>60) mL/min BUN/Creatinine Ratio (6-22) Glucose (70-99) mg/dL Lactate (0.7-2.1) mmol/L Calcium (8.4-10.2) mg/dL Magnesium (1.6-2.3) mg/dL Total Bilirubin (0.2-1.3) mg/dL AST (17-59) IU/L ALT (<50) IU/L Alkaline Phosphatase (38-126) U/L Troponin I (0.01-0.034) ng/mL NT-Pro-B Natriuret Pep (<125) pg/mL Total Protein (6.3-8.2) g/dL Albumin (3.5-5.0) g/dL Globulin (1.7-4.1) g/dL Albumin/Globulin Ratio (1.0-2.8) Lipase (23-300) U/L Urine Color Urine Appearance Urine pH (4.5-8.0) Ur Specific [place] (1.000-1.035) Urine Protein (Negative) Urine Glucose (UA) (Negative) g/dL Urine Ketones (NEGATIVE) Urine Occult Blood (Negative) Urine Nitrate (Negative) Urine Bilirubin (NEGATIVE) Urine Urobilinogen (0.2) E.U./dL Ur Leukocyte Esterase (NEGATIVE) Urine RBC (0-5/HPF) Urine WBC (0-5/HPF) Ur Squamous Epith Cells (0-5/HPF) Urine Bacteria (None) Ur Culture Indicated? Vol Urine Centrifuged Stl C. cayetanensis PCR (Not Detect) Stool Rotavirus (PCR) (Not Detect) Stool Adenovirus (PCR) (Not Detect) Stool Astrovirus (PCR) (Not Detect) Stool Cryptosporidium PCR (Not Detect) Stl E.coli Shiga Tox PCR (Not Detect) St Sh/Enteroin Ecoli PCR (Not Detect) Stl Enterotoxigenic E PCR (Not Detect) Stool EPEC (PCR) (Not Detect) Stl E. histolytica PCR (Not Detect) Stool Giardia Lamblia PCR (Not Detect) Stool Sapovirus (PCR) (Not Detect) Stl P. shigelloides PCR (Not Detect) St Y.enterocolitica PCR (Not Detect) Stool Vibrio (PCR) (Not Detect) Stl Vibrio cholerae PCR (Not Detect) Stl Enteroaggr Ecoli PCR (Not Detect) Stl Norovirus GI/GII PCR (Not Detect) Chlamy pneumoniae PCR Not detected (Not Detect) Adenovirus (PCR) Not detected (Not Detect) B. pertussis DNA (PCR) Not detected (Not Detect) B.parapertussis DNA PCR Not detected (Not Detecte) Campylobacter (PCR) (Not Detect) C. difficile Tox (PCR) (Not Detect) Coronavirus OC43 (PCR) Not detected (Not Detect) Coronavirus HKU1 (PCR) Not detected (Not Detect) Coronavirus 229E (PCR) Not detected (Not Detect) SARS-CoV-2 (PCR) Not detected (Not Detecte) Coronavirus NL63 (PCR) Not detected (Not Detect) Human Metapneumovir PCR Not detected (Not Detect) Influenza Type A (PCR) Not detected (Not Detect) Influenza Type B (PCR) Not detected (Not Detect) M. pneumoniae (PCR) Not detected (Not Detect) Parainfluenza 1 (PCR) Not detected (Not Detect) Parainfluenza 2 (PCR) Not detected (Not Detect) Parainfluenza 3 (PCR) Not detected (Not Detect) Parainfluenza 4 (PCR) Not detected (Not Detect) RSV (PCR) Not detected (Not Detect) Entero/Rhino (PCR) Not detected (Not Detect) Salmonella (PCR) (Not Detect) ECG Data Interpretation: EKG interpreted ED physician sinus 95 beats per minute QTC 522, left axis deviation, prolonged MT interval, no STEMI MDM Narrative Medical decision making narrative: 69-year-old male with a past medical history of stroke with right-sided residual deficits nonverbal now at baseline, antiphospholipid disorder on Pradaxa, CHF with AICD, diabetes, currently with a Zhu catheter for urinary retention on antibiotics comes into the ED from home with medics for evaluation of increased confusion, nausea and vomiting. According to the patient normally able to nod yes no but does not appear to be able to do this. She states that they had Zhu catheter changed this last Saturday and was started on new antibiotic but patient has been acting more confused had episodes of nausea and vomiting but not able to obtain whether or not patient having any pain or discomfort. Patient with a leukocytosis of 18.9, hemoglobin 12.1, patient noted to have a hyponatremia of 122 (125 after correction with glucose of 215), this is most likely secondary to GI loss from diarrhea nausea and vomiting, creatinine 0.99 GFR greater than 60, magnesium 1.3 troponin indeterminate at 0.027 BNP 877 urinalysis with significant amount of WBC bacteria antibiotics have already been ordered, fluid bolus and antibiotics already ordered. Zhu catheter was exchanged here in the emergency department. X-ray of the chest did show by basilar opacities atelectasis versus pneumonia. CT of the head preliminary read showing no acute intracranial findings chronic left MCA territory infarct with the vomiting loss unchanged periventricular white matter hypodensities likely chronic small-vessel ischemic changes. CT abdomen and pelvis showing thickened bladder wall with perivesical fat stranding changes compatible with acute cystitis, also prominent heterogeneous prostate gland and left seminal vesicle with surrounding fat stranding changes concerning for inflammation/infection recommending consultation. There is thickening of the wall of the sigmoid colon and rectum which may be reactive due to adjacent pelvic inflammation versus isolated proctocolitis, no signs of perforation abscess or bowel obstruction. Extensive heterogeneous ground-glass opacities in the lung bases concerning for multi lobar atypical pneumonia. Given CT scan read we will reach out to urology for any additional recommendations Review of records show patient did have urinalysis with culture ordered on 08/23/2025, preliminary read showing Gram-negative bacilli greater than 100,000 identification sensitivity to follow. Patient currently on cefdinir antibiotic for urinary tract infection. At time of initial evaluation patient meeting sepsis criteria, patient with tachycardia, fever, increased respirations, broad-spectrum antibiotic ordered meropenem secondary to history of penicillin allergy and currently already on cefdinir, 30 per cc kilos bolus of fluids ordered, 1 g of Ofirmev ordered, blood cultures lactate ordered. 0521: I discussed the case with urologist Dr. Maldonado, states that given the read this is most likely just prostatitis no further recommendations agrees with antibiotics no need for transfer The patient's management plan was discussed Dr. Fong, who agrees to admit the patient to their service and assumes care of this patient at this time. Full admission orders will be placed by the primary team. Discharge Plan Departure Patient Disposition: Admitted As Inpatient Clinical Impression: Acute metabolic encephalopathy, Sepsis, Acute hyponatremia, Pneumonia, Norovirus, Acute UTI, Acute prostatitis
--- NOTE | 2025-09-04 02:35 | DI.RAD.S_ITS ---
PROCEDURE: XR CHEST 1V
--- NOTE | 2025-09-04 02:37 | DI.CT.S_ITS ---
PROCEDURE: CT ABDOMEN PELVIS W CON
--- NOTE | 2025-09-04 02:37 | DI.CT.S_ITS ---
PROCEDURE: CT HEAD/BRAIN WO CON
[2025-09-04] MEDS: ONDANSETRON 4 MG/2 ML INJ IV ×2 (02:45→15:31)
[2025-09-04 03:12] LABS: Bilirubin Urine UA NEGATIVE (NEGATIVE); Color Urine UA YELLOW; Glucose Urine UA NEGATIVE (Negative); Ketones Urine UA 2+ (NEGATIVE); Leukocyte Esterase Urine UA 2+ (NEGATIVE); Nitrite Urine UA NEGATIVE (Negative); Occult Blood Urine UA 3+ (Negative); Protein Urine UA 3+ (Negative); Specific Gravity Urine UA 1.025 (1.000-1.035); Urobilinogen Urine UA 0.2 E.U./dL (0.2); pH Urine UA 6.0 (4.5-8.0)
--- NOTE | 2025-09-04 03:17 | PC.NURSE ---
Patient had a recent barbosa catheter placed on 08/31/25, after passing removal the week prior. Currently being treated for UTI, patient has chronic UTI's. N/V/D started earlier this evening per started around 0130
--- NOTE | 2025-09-04 03:23 | PC.NURSE ---
upon arrival pt cleaned of loose a large amount of brown stool with catheter care done, stool specimen obtained and urine specimen obtained from tubing of indwelling catheter that was present upon arrival and sent to lab,
[2025-09-04 03:29] LABS: Add Manual Diff / Slide Review NO; Hematocrit 34.7 % (41-53); Hemoglobin 12.1 g/dL (13.5-17.5); Lymphocytes Absolute Auto 600 /uL (1100-4500); Mean Corpuscular HGB Conc 34.7 % (30-36); Mean Corpuscular Hemoglobin 32.2 PG (26-34); Mean Corpuscular Volume 92.6 fL (80-100); Platelet Count 203 X10^3/uL (150-400)
[2025-09-04 03:31] LABS: INR 1.2 (0.9-1.3); Prothrombin Time 13.8 SECONDS (9.4-12.5)
[2025-09-04 03:34] LABS: PTT Partial Thromboplastin Tim 21 SECONDS (25.1-36.5)
[2025-09-04 03:35] LABS: Alanine Aminotransferase 37 IU/L (<50); Albumin 4.0 g/dL (3.5-5.0); Albumin Globulin Ratio 1.0 (1.0-2.8); Alkaline Phosphatase 59 U/L (38-126); Blood Urea Nitrogen 19 mg/dL (9-20); Calcium 8.5 mg/dL (8.4-10.2); Carbon Dioxide 20 mmol/L (22-32); Chloride 91 mmol/L (98-107); Estimated Glomerular Filt Rate > 60 mL/min (>60); Globulin 4.1 g/dL (1.7-4.1); Glucose 215 mg/dL (70-99); Lipase 89 U/L (23-300); Magnesium 1.3 mg/dL (1.6-2.3); Potassium 4.6 mmol/L (3.4-5.1); Sodium 122 mmol/L (137-145); Total Protein 8.1 g/dL (6.3-8.2)
[2025-09-04 03:36] LABS: Lactate (Lactic Acid) 1.8 mmol/L (0.7-2.1)
[2025-09-04 03:44] LABS: HEMOLYSIS 117 (0-50)
[2025-09-04 03:46] LABS: Appearance Urine UA SL CLOUDY
[2025-09-04 03:47] LABS: Culture Indicated Urine Specimen Cultured
[2025-09-04 03:47] LABS: NT-proBNP (BNP-Adult 18+) 877 pg/mL (<125); Troponin I 0.027 ng/mL (0.01-0.034)
[2025-09-04] MEDS: MEROPENEM 500 MG in SODIUM CHLORIDE 0.9% 100 ML 200 MG IV (04:07)
[2025-09-04] MEDS: ACETAMINOPHEN IV 1,000 MG/100 ML VIAL 400 MG IV (04:09)
[2025-09-04] MEDS: SODIUM CHLORIDE 0.9% 757.5 ML IV (04:09)
[2025-09-04 04:20] LABS: Coronavirus NL 63 Not Detected (Not Detect); SARS- CoV-2 Not Detected (Not Detecte)
[2025-09-04] MEDS: MAGNESIUM SULFATE 2 GM/50 ML PIGGYBACK IV (04:21)
[2025-09-04 04:27] LABS: Clostridium difficile toxin AB Not Detected (Not Detect); Enteroaggregative E.coli Not Detected (Not Detect); Enteropathogenic E.coli Not Detected (Not Detect); Enterotoxigenic E.coli It/st Not Detected (Not Detect); Plesiomonsa shigelloides Not Detected (Not Detect); Shiga-like toxin-prod E.coli Not Detected (Not Detect)
--- NOTE | 2025-09-04 04:41 | EKG_ITS ---
[facility]
[2025-09-04] MEDS: VANCOMYCIN 1,500 MG in SODIUM CHLORIDE 0.9% 100 ML 100 MG IV (05:28)
--- NOTE | 2025-09-04 08:37 | P.HP_ITS ---
History of Present Illness
--- NOTE | 2025-09-04 08:37 | PM.HP.IH.1 ---
History of Present Illness History of Present Illness Date Patient Seen: 09/04/25 Time Patient Seen: 08:37 Chief complaint: Vomiting, Decreased LOC, UTI Narrative: 69-year-old male who normally sees Dr. Delfino Epstein of primary care with multiple medical issues including aphasia after a stroke several years ago, antiphospholipid antibody syndrome causing hypercoagulable state chronically anticoagulated, type 2 diabetes, chronic heart failure with reduced ejection fraction, coronary artery disease, paroxysmal AFib/flutter, and interstitial lung disease/bronchiectasis admitted with probable urosepsis Patient presented to the [facility] Emergency Department early day of admission with increased confusion nausea and vomiting. Patient is aphasic but normally able to nod yes or no to simple questions but has been able to do this. Patient is somewhat recently had Zhu catheter placed for urinary retention and had this changed several days prior to admission. Urine culture is growing Gram-negative rods and patient has been on broad-spectrum oral antibiotic therapy and despite this was febrile upon presentation in the emergency department as well as his confusion and GI symptoms. ER evaluation demonstrates tachycardia and modest hypotension as well as leukocytosis with left shift, hyponatremia, hyperglycemia but normal renal function. Patient also with elevated bilirubin. In addition patient was found to be positive for norovirus Chest x-ray demonstrated bilateral infiltrates consistent with CT scan done August 20 which was similar to CT scan done in February felt to be due to some degree of probable chronic aspiration bronchiectasis and interstitial lung disease. Abdominal CT basically unremarkable except for possibility of prostatitis (as per communication from ER physician, full radiology interpretation not yet available). Head CT unremarkable In the ER patient was felt to be septic received appropriate care including broad-spectrum IV antibiotics cultures were obtained and vigorous fluid resuscitation with improvement in vital signs He is admitted to continue his care. [facility] Medical History Acute urinary retention History of CVA (cerebrovascular accident) Myocardial infarct, old (08/09/11) penitentiary current use of anticoagulant (05/04/13) Other and unspecified hyperlipidemia (08/09/11) DVT (deep venous thrombosis) CHF (congestive heart failure) Atrial fibrillation ILD (interstitial lung disease) Hyperglycemia Controlled insulin dependent diabetes mellitus CVA (cerebral vascular accident) Facial laceration Weakness Acute hyponatremia Rheumatoid arthritis History of stroke with residual deficit Diabetes mellitus Hyperlipidemia Antiphospholipid antibody syndrome Pacemaker Myocardial infarction Systolic heart failure DVT (deep venous thrombosis) CAD (coronary artery disease) Cardiac arrhythmia Chronic systolic congestive heart failure (09/01/15) Hyperlipidemia (09/01/15) Essential hypertension (09/01/15) Coronary artery disease involving [place] coronary artery of [place] heart without angina pectoris (09/01/15) Cerebrovascular accident (CVA) involving left middle cerebral artery territory (09/01/15) Chronic atrial flutter (09/01/15) Hemiparesis affecting dominant side as late effect of cerebrovascular accident (01/27/15) Aphasia following cerebrovascular disease (01/27/15) Stenosis of left carotid artery (12/22/13) Type 2 diabetes mellitus Surgical History AICD (automatic cardioverter/defibrillator) present History of angioplasty Presence of cardiac pacemaker Social History marital status: household members: spouse and caregiver Smoking Status: Never smoker alcohol intake: never substance use type: does not use Meds Home Medications and Allergies Home Medications ?Medication ?Instructions ?Recorded ?Confirmed ?Type multivitamin with minerals 1 tab PO DAILY ##0 06/22/19 03/01/25 History tamsulosin 0.4 mg capsule 0.4 mg PO QPM #90 caps 07/20/19 03/01/25 Rx ketoconazole 2 % topical cream 1 applic topical BID #60 grams 03/09/21 03/01/25 Rx triamcinolone acetonide 0.1 % 1 applic topical BID #80 grams 03/09/21 03/01/25 Rx topical cream nystatin 100,000 unit/gram topical 1 applic topical BID #60 grams 04/04/21 03/01/25 Rx powder insulin syringe-needle U-100 0.3 #100 ea 01/08/22 03/01/25 Rx mL 31 gauge x 5/16 (BD Insulin Syringe Ultra-Fine) cholecalciferol (vitamin D3) 125 125 mcg PO DAILY #90 caps 03/25/23 03/01/25 Rx mcg (5,000 unit) capsule lactobacillus combination no.9 4 4,000 mmu cells PO DAILY 03/25/23 03/01/25 History billion cell capsule (Adult 50 Plus Probiotic) vitamin B complex (B 1 tab PO DAILY 03/25/23 03/01/25 History Complex-Vitamin B12 tablet) pen needle, diabetic 32 gauge x #150 ea 07/01/23 03/01/25 Rx 3/16 (Droplet Pen Needle) blood-glucose,special procedures tech,cont #1 ea 10/01/23 03/01/25 Rx (Dexcom G6 Office Machine Installer) lisinopril 10 mg tablet 10 mg PO DAILY #90 tabs 11/18/23 03/01/25 Rx dextrose 40 % oral gel 15 g PO Q15M PRN hypoglycemia 03/16/24 03/01/25 Rx #112.5 grams Disabled Parking Permit See Rx Instructions .Route 04/27/24 03/01/25 Rx .COMPLEX #1 ea glucagon 1 mg/0.2 mL subcutaneous 1 mg (0.2 mL) SUBCUT Q20M PRN 04/27/24 03/01/25 Rx solution hypoglycemia #0.2 mL insulin aspart U-100 100 unit/mL 5 unit (0.05 mL) SUBCUT .COMPLEX 08/13/24 03/01/25 Rx (3 mL) subcutaneous pen (Novolog #15 mL FlexPen U-100 Insulin aspart) methotrexate sodium 2.5 mg tablet 20 mg (8 x 2.5 mg) PO QWEEK #12 09/01/24 03/01/25 Rx tabs dabigatran etexilate 150 mg capsule 150 mg PO BID #180 caps 10/22/24 03/01/25 Rx insulin glargine 100 unit/mL (3 20 unit (0.2 mL) SUBCUT QAM #15 mL 11/16/24 03/01/25 Rx mL) subcutaneous pen (Lantus Solostar U-100 Insulin) folic acid 1 mg tablet 3 mg (3 x 1 mg) PO DAILY #90 tabs 01/11/25 03/01/25 Rx metformin 1,000 mg tablet 1,000 mg PO BID #180 tabs 01/11/25 03/01/25 Rx lactulose 20 gram oral packet 20 g PO BID #60 ea 01/13/25 03/01/25 Rx atorvastatin 20 mg tablet 20 mg PO ONCE PM #90 tabs 02/01/25 03/01/25 Rx sertraline 50 mg tablet See Rx Instructions .Route 02/08/25 03/01/25 Rx .COMPLEX #180 tabs adalimumab 40 mg/0.8 mL See Rx Instructions SUBCUT .COMPLEX 02/09/25 03/01/25 History subcutaneous syringe kit (Humira) omeprazole 40 mg capsule,delayed 40 mg PO DAILY #60 caps 03/01/25 03/01/25 Rx release alcohol swabs pad topical DIRECTED 08/05/25 08/05/25 History blood-glucose sensor (Dexcom G6 #3 ea 08/10/25 Rx Sensor device) blood-glucose transmitter (Dexcom #1 ea 08/10/25 Rx G6 Transmitter device) carvedilol 6.25 mg tablet 6.25 mg PO BID #180 tabs 08/19/25 Rx cefdinir 300 mg capsule 300 mg PO BID #14 caps 08/31/25 Rx cefdinir 300 mg capsule 300 mg PO BID #14 caps 09/01/25 Rx Allergies Allergy/AdvReac Type Severity Reaction Status Date / Time polyethylene glycol 3350 Allergy Intermediate HIVES Verified 09/04/25 02:28 (From Miralax) amoxicillin Allergy Mild RASH Verified 09/04/25 02:28 erythromycin base Allergy Mild RASH Verified 09/04/25 02:28 famotidine Allergy Mild RASH Verified 09/04/25 02:28 niacin Allergy Mild RASH Verified 09/04/25 02:28 codeine AdvReac Mild NAUSEA Verified 09/04/25 02:28 Review of Systems Review of Systems ROS: Yes unobtainable due to mental condition Exam Vital Signs (past 8 hours): - 09/04/25 02:29 09/04/25 02:58 09/04/25 03:00 Temperature 100.7 F H Pulse Rate 119 H 113 H 112 H Respiratory Rate 16 24 23 Blood Pressure 122/72 Pulse Oximetry 97 98 97 Oxygen Delivery Method Room Air Room Air Oxygen Flow Rate 09/04/25 03:26 09/04/25 03:26 09/04/25 03:30 Temperature Pulse Rate 109 H 109 H Respiratory Rate 22 21 Blood Pressure 102/60 Pulse Oximetry 91 91 Oxygen Delivery Method Oxygen Flow Rate 09/04/25 03:30 09/04/25 04:09 09/04/25 04:16 Temperature 100.7 F H Pulse Rate 102 H Respiratory Rate 20 Blood Pressure 92/57 L Pulse Oximetry Oxygen Delivery Method Oxygen Flow Rate 09/04/25 04:30 09/04/25 05:00 09/04/25 05:30 Temperature Pulse Rate 95 H 92 H 90 Respiratory Rate 20 18 17 Blood Pressure 98/56 L Pulse Oximetry 96 97 100 Oxygen Delivery Method Room Air Oxygen Flow Rate 09/04/25 05:40 09/04/25 06:00 09/04/25 06:50 Temperature 97.8 F 96.6 F L 97.7 F Pulse Rate 88 86 Respiratory Rate 16 19 Blood Pressure 89/48 L 89/51 L Pulse Oximetry 96 97 Oxygen Delivery Method Oxygen Flow Rate 0 09/04/25 08:12 Temperature 96.6 F L Pulse Rate 90 Respiratory Rate 15 Blood Pressure 99/56 L Pulse Oximetry 99 Oxygen Delivery Method Oxygen Flow Rate 0 Oxygen Delivery Method Room Air Oxygen Flow Rate 0 Narrative Exam Narrative: Elderly male in no obvious distress lying in hospital bed HEENT-unremarkable, normocephalic atraumatic Neck-no lymphadenopathy no bruits Lungs-clear anteriorly and posteriorly no wheezes no crackles good breath sounds Heart-regular rate and rhythm, no murmur, rub, or gallop. normal S1-S2 Abdomen-positive bowel tones, soft, nontender, nondistended, no hepatosplenomegaly, no masses palpable Neuro-normal to screening exam, gait not tested Extremities-no cyanosis clubbing or edema Objective Labs 09/04/25 03:12 09/04/25 03:12 Labs: Laboratory Results - last 24 hr 09/04/25 09/04/25 09/04/25 02:51 02:52 03:12 WBC 18.9 H RBC 3.75 L Hgb 12.1 L Hct 34.7 L MCV 92.6 MCH 32.2 MCHC 34.7 RDW 17.1 H Plt Count 203 Neut % (Auto) 92.5 H Lymph % (Auto) 3.3 L [place] % (Auto) 3.3 Eos % (Auto) 0.4 L Baso % (Auto) 0.5 Neut # (Auto) 51370 H Lymph # (Auto) 600 L [place] # (Auto) 600 Eos # (Auto) 100 Baso # (Auto) 100 PT 13.8 H INR 1.2 APTT 21 L Sodium 122 L Potassium 4.6 Chloride 91 L Carbon Dioxide 20 L BUN 19 Creatinine 0.99 Estimated GFR > 60 BUN/Creatinine Ratio 19.2 Glucose 215 H POC Whole Bld Glucose Lactate 1.8 Calcium 8.5 Magnesium 1.3 L Total Bilirubin 1.4 H AST 59 ALT 37 Alkaline Phosphatase 59 Troponin I 0.027 NT-Pro-B Natriuret Pep 877 H Total Protein 8.1 Albumin 4.0 Globulin 4.1 Albumin/Globulin Ratio 1.0 Lipase 89 Urine Color Yellow Urine Appearance Sl cloudy Urine pH 6.0 Ur Specific [place] 1.025 Urine Protein 3+ H Urine Glucose (UA) Negative Urine Ketones 2+ H Urine Occult Blood 3+ H Urine Nitrate Negative Urine Bilirubin Negative Urine Urobilinogen 0.2 Ur Leukocyte Esterase 2+ H Urine RBC 1-5/hpf Urine WBC 30-100/hpf H Ur Squamous Epith Cells 0-1 /hpf Urine Bacteria Moderate (10-30) H Ur Culture Indicated? Specimen cultured Vol Urine Centrifuged Low vol <10ml (spun) A Stl C. cayetanensis PCR Not detected Stool Rotavirus (PCR) Not detected Stool Adenovirus (PCR) Not detected Stool Astrovirus (PCR) Not detected Stool Cryptosporidium PCR Not detected Stl E.coli Shiga Tox PCR Not detected St Sh/Enteroin Ecoli PCR Not detected Stl Enterotoxigenic E PCR Not detected Stool EPEC (PCR) Not detected Stl E. histolytica PCR Not detected Stool Giardia Lamblia PCR Not detected Stool Sapovirus (PCR) Not detected Stl P. shigelloides PCR Not detected St Y.enterocolitica PCR Not detected Stool Vibrio (PCR) Not detected Stl Vibrio cholerae PCR Not detected Stl Enteroaggr Ecoli PCR Not detected Stl Norovirus GI/GII PCR Detected Chlamy pneumoniae PCR Adenovirus (PCR) B. pertussis DNA (PCR) B.parapertussis DNA PCR Campylobacter (PCR) Not detected C. difficile Tox (PCR) Not detected Coronavirus OC43 (PCR) Coronavirus HKU1 (PCR) Coronavirus 229E (PCR) SARS-CoV-2 (PCR) Coronavirus NL63 (PCR) Human Metapneumovir PCR Influenza Type A (PCR) Influenza Type B (PCR) M. pneumoniae (PCR) Parainfluenza 1 (PCR) Parainfluenza 2 (PCR) Parainfluenza 3 (PCR) Parainfluenza 4 (PCR) RSV (PCR) Entero/Rhino (PCR) Salmonella (PCR) Not detected 09/04/25 09/04/25 03:25 07:47 WBC RBC Hgb Hct MCV MCH MCHC RDW Plt Count Neut % (Auto) Lymph % (Auto) [place] % (Auto) Eos % (Auto) Baso % (Auto) Neut # (Auto) Lymph # (Auto) [place] # (Auto) Eos # (Auto) Baso # (Auto) PT INR APTT Sodium Potassium Chloride Carbon Dioxide BUN Creatinine Estimated GFR BUN/Creatinine Ratio Glucose POC Whole Bld Glucose 198 H Lactate Calcium Magnesium Total Bilirubin AST ALT Alkaline Phosphatase Troponin I NT-Pro-B Natriuret Pep Total Protein Albumin Globulin Albumin/Globulin Ratio Lipase Urine Color Urine Appearance Urine pH Ur Specific [place] Urine Protein Urine Glucose (UA) Urine Ketones Urine Occult Blood Urine Nitrate Urine Bilirubin Urine Urobilinogen Ur Leukocyte Esterase Urine RBC Urine WBC Ur Squamous Epith Cells Urine Bacteria Ur Culture Indicated? Vol Urine Centrifuged Stl C. cayetanensis PCR Stool Rotavirus (PCR) Stool Adenovirus (PCR) Stool Astrovirus (PCR) Stool Cryptosporidium PCR Stl E.coli Shiga Tox PCR St Sh/Enteroin Ecoli PCR Stl Enterotoxigenic E PCR Stool EPEC (PCR) Stl E. histolytica PCR Stool Giardia Lamblia PCR Stool Sapovirus (PCR) Stl P. shigelloides PCR St Y.enterocolitica PCR Stool Vibrio (PCR) Stl Vibrio cholerae PCR Stl Enteroaggr Ecoli PCR Stl Norovirus GI/GII PCR Chlamy pneumoniae PCR Not detected Adenovirus (PCR) Not detected B. pertussis DNA (PCR) Not detected B.parapertussis DNA PCR Not detected Campylobacter (PCR) C. difficile Tox (PCR) Coronavirus OC43 (PCR) Not detected Coronavirus HKU1 (PCR) Not detected Coronavirus 229E (PCR) Not detected SARS-CoV-2 (PCR) Not detected Coronavirus NL63 (PCR) Not detected Human Metapneumovir PCR Not detected Influenza Type A (PCR) Not detected Influenza Type B (PCR) Not detected M. pneumoniae (PCR) Not detected Parainfluenza 1 (PCR) Not detected Parainfluenza 2 (PCR) Not detected Parainfluenza 3 (PCR) Not detected Parainfluenza 4 (PCR) Not detected RSV (PCR) Not detected Entero/Rhino (PCR) Not detected Salmonella (PCR) Assessment & Plan Assessment & Plan narrative: 1. Sepsis-most likely source of sepsis in this case would be urinary in my opinion. I do not believe patient has an active pulmonary issue (see below). Continue with broad-spectrum IV antibiotics until blood cultures and full urine cultures with sensitivities are available. Patient seems to have responded to fluid resuscitation emergency department will continue that at some level for now noting patient does have a history of congestive heart failure with reduced left ventricular ejection fraction. 2. UTI with urinary retention-continue with Zhu catheter in place. Urine culture is pending. Continue broad-spectrum antibiotics. We will need outpatient Urology evaluation and follow-up 3. Pulmonary-patient with chronic cough and evidence of bronchiectasis/interstitial lung disease on previous evaluation going back 6+ months. Patient's current imaging studies are very similar to studies done 6 months ago and despite patient's febrile illness and leukocytosis I do not believe patient has an active acute pulmonary process ongoing at this time. He is not hypoxic. Will continue with broad-spectrum antibiotics until blood and urine cultures are available but would not necessarily cover respiratory organisms once we have all culture results available. Continue to monitor for hypoxia and initiate oxygen replacement therapy as necessary 4. Diabetes-we will continue with carb consistent diabetic diet and long-acting insulin. Short-acting coverage insulin also ordered 5. Coronary artery disease-no evidence of active ischemia at this time. Continue to monitor and continue usual medications 6. Rheumatoid arthritis-patient apparently is chronically immunosuppressed with Humira as treatment for his rheumatoid arthritis. Patient only recently establish care with Rheumatology at [facility]. Obviously holding off on any specific treatment at this time 7. Antiphospholipid antibody syndrome-patient chronic anticoagulated with Pradaxa which should continue. No evidence of clotting disorder at this time. This will suffice for VTE prophylaxis as well 8. Hypertension-patient carries a diagnosis of hypertension although recently has been somewhat hypotensive. Continue to monitor blood pressure while treating sepsis as above 9. Congestive heart failure-patient with history of congestive heart failure with reduced ejection fraction. No recent echocardiography and will update in the setting of the sepsis syndrome etcetera. 10. History of CVA causing right-sided weakness and aphasia-while initiate speech therapy but continue anticoagulation. Do not see indication for physical therapy or occupational therapy at this time we will continue to follow during this hospitalization 11. VTE prophylaxis-as above chronic anticoagulated with Pradaxa which will continue 12. Code status-per Dr. Epstein's outpatient notes patient has requested do not resuscitate which will be continued for this hospitalization. Time-Based Coding :: [TOTAL MINUTES] spent with patient and on the chart (including review of chart, obtaining history, exam, reviewing outside data, placing orders, documenting exam and treatment plan, and counseling patient) on [DATE]. Quality VTE Deep Vein Thrombosis/Pulmonary Embolism Present on Admission: No IH PROFEE Electric Clock Mechanic Document charge(s): Yes Charge Codes Initial inpatient/observation care: 52822
[2025-09-04] MEDS: VANCOMYCIN 1,000 MG/200 ML PIGGYBACK 200 MG IV ×2 (11:00→21:13)
--- NOTE | 2025-09-04 15:13 | CM.DANOTE ---
DCP Assessment Note: Pt is a 69yo male, resident of [place], is admitted for Sepsis, UTI. Pt lives in a house with his , daughter/COLETTE Caregiver, and son-in-law. Pt's Primary Care Provider is Dr. Delfino Epstein and insurance is [facility] and Medicaid. Reviewed chart and discussed with multidisciplinary team pt's medical status and initial discharge needs. Per Provider, pt to obtain IV abx, pending cultures. DCP met w/patient at bedside; introduced self and role. Patient was found in bed, alert and oriented, cooperative with assessment. Pt confirmed living situation and good support in spouse and COLETTE CG/daughter. Pt expressed preference in discharge home when medically cleared. Pt has a hx of SNF at [facility] for acute rehab after his stroke and [place] . COLETTE Monument Setter Helper is Arlene Pham. Plan: Anticipating discharge home with spouse when medically cleared, would benefit from TCM follow up to navigate Urology, Cardiology and PCP follow up. CM team will follow closely for coordination of discharge plans. SONG Garrido Discharge Planning/Care Management CM Discharge Assessment Start: 09/04/25 06:56 Freq: Status: Active Protocol: Document 09/04/25 14:54 MW (Rec: 09/04/25 14:56 MW Desktop) Discharge Planning Assessment Assigned Discharge СВЕТЛАНА Conde Janitor Cleaner Provider Dr. Delfino Epstein Insurance Medicaid,[facility] DPOA/Assigned Diele, Spouse Designee Name Contact Information [phone] Advance Directives? Yes Advance Directives Yes on File History Provided By Family Member,Significant Other,Medical Record Has Patient been No admitted in last 30 days? Prior Living House Arrangements Household Members spouse,caregiver Independent with ADL No 's Is patient alert and Yes oriented? Needs Assistance Bathing,Grooming,Meal Prep,Toileting,Managing With Medications,Home Chores / Shopping Caregiver for No Another DME Already Rented / Wheelchair,Cane Owned Patient/Family OP SUPPLY COORDINATOR Therapy Preference Discharge Plan Home Referrals Initiated None needed Review Status In Process Please Provide Date 09/04/25 Initial DC Assessment Was Performed Next Review Type Continued Stay Review
[2025-09-04] MEDS: PANTOPRAZOLE DR 40 MG TABLET PO (15:20)
[2025-09-04] MEDS: SERTRALINE 50 MG TABLET 200 MG PO (15:20)
[2025-09-04] MEDS: FOLIC ACID 1 MG TABLET 3 MG PO (15:20)
[2025-09-04] MEDS: SODIUM CHLORIDE 0.9% 1,000 ML 100 ML IV ×2 (15:21→21:14)
[2025-09-04 16:44] LABS: Blood Urea Nitrogen 16 mg/dL (9-20); Calcium 8.3 mg/dL (8.4-10.2); Carbon Dioxide 23 mmol/L (22-32); Chloride 97 mmol/L (98-107); Estimated Glomerular Filt Rate > 60 mL/min (>60); Glucose 203 mg/dL (70-99); HEMOLYSIS < 15 (0-50); Potassium 4.7 mmol/L (3.4-5.1); Sodium 126 mmol/L (137-145)
[2025-09-04] MEDS: MEROPENEM 1 GM in SODIUM CHLORIDE 0.9% 100 ML IV (17:23)
[2025-09-04] MEDS: INSULIN LISPRO 100 UNIT/ML 3ML VIAL SUBCUT (17:25)
[2025-09-04] MEDS: DABIGATRAN 75 MG CAPSULE 150 MG PO (21:14)
[2025-09-04] MEDS: ATORVASTATIN 20 MG TABLET PO (21:14)
[2025-09-05] MEDS: PANTOPRAZOLE DR 40 MG TABLET PO (04:52)
[2025-09-05] MEDS: MEROPENEM 1 GM in SODIUM CHLORIDE 0.9% 100 ML IV ×3 (04:52→20:00)
[2025-09-05 05:00] VITALS: BP 105/75; PULSE 80; RESP 17; TEMP 37; O2SAT 95
[2025-09-05 05:38] LABS: Add Manual Diff / Slide Review NO; Hematocrit 29.1 % (41-53); Hemoglobin 10.1 g/dL (13.5-17.5); Lymphocytes Absolute Auto 1100 /uL (1100-4500); Mean Corpuscular HGB Conc 34.7 % (30-36); Mean Corpuscular Hemoglobin 32.4 PG (26-34); Mean Corpuscular Volume 93.4 fL (80-100); Platelet Count 148 X10^3/uL (150-400)
[2025-09-05 05:43] LABS: Alanine Aminotransferase 25 IU/L (<50); Albumin 2.8 g/dL (3.5-5.0); Albumin Globulin Ratio 0.8 (1.0-2.8); Alkaline Phosphatase 62 U/L (38-126); Blood Urea Nitrogen 14 mg/dL (9-20); Calcium 7.8 mg/dL (8.4-10.2); Carbon Dioxide 20 mmol/L (22-32); Chloride 101 mmol/L (98-107); Estimated Glomerular Filt Rate > 60 mL/min (>60); Globulin 3.6 g/dL (1.7-4.1); Glucose 142 mg/dL (70-99); HEMOLYSIS < 15 (0-50); Potassium 4.1 mmol/L (3.4-5.1); Sodium 126 mmol/L (137-145); Total Protein 6.4 g/dL (6.3-8.2)
[2025-09-05 07:46] VITALS: BP 112/62; PULSE 83; RESP 16; TEMP 36.8; O2SAT 99
--- NOTE | 2025-09-05 08:02 | PM.PN.IH.1 ---
Subjective Subjective Date Patient Seen: 09/05/25 Time Patient Seen: 08:02 Interval history: Has remained afebrile since admission. Blood pressure remains soft, but that appears to be his baseline and certainly has been stable. Lab work shows improvement in his sodium but persistence of his leukocytosis. This morning he is much more awake and alert and per spouse who is with him this morning is approaching baseline if not already there. Exam Vital Signs (past 8 hours): - 09/05/25 05:00 09/05/25 07:46 Temperature 98.6 F 98.3 F Pulse Rate 80 83 Respiratory Rate 17 16 Blood Pressure 105/75 112/62 Pulse Oximetry 95 99 Oxygen Flow Rate 0 Oxygen Delivery Method Room Air Oxygen Flow Rate 0 Objective Labs 09/05/25 04:30 09/05/25 04:30 Labs: Laboratory Results - last 24 hr 09/04/25 09/04/25 09/04/25 11:57 16:20 16:40 WBC RBC Hgb Hct MCV MCH MCHC RDW Plt Count Neut % (Auto) Lymph % (Auto) [place] % (Auto) Eos % (Auto) Baso % (Auto) Neut # (Auto) Lymph # (Auto) [place] # (Auto) Eos # (Auto) Baso # (Auto) Sodium 126 L Potassium 4.7 Chloride 97 L Carbon Dioxide 23 BUN 16 Creatinine 0.99 Estimated GFR > 60 BUN/Creatinine Ratio 16.2 Glucose 203 H POC Whole Bld Glucose 163 H 212 H Calcium 8.3 L Total Bilirubin AST ALT Alkaline Phosphatase Total Protein Albumin Globulin Albumin/Globulin Ratio 09/04/25 09/05/25 20:07 04:30 WBC 19.0 H RBC 3.12 L Hgb 10.1 L Hct 29.1 L MCV 93.4 MCH 32.4 MCHC 34.7 RDW 17.1 H Plt Count 148 L Neut % (Auto) 87.0 H Lymph % (Auto) 5.6 L [place] % (Auto) 7.1 Eos % (Auto) 0.1 L Baso % (Auto) 0.2 Neut # (Auto) 93608 H Lymph # (Auto) 1100 [place] # (Auto) 1300 H Eos # (Auto) 0 Baso # (Auto) 0 Sodium 126 L Potassium 4.1 Chloride 101 Carbon Dioxide 20 L BUN 14 Creatinine 0.94 Estimated GFR > 60 BUN/Creatinine Ratio 14.9 Glucose 142 H POC Whole Bld Glucose 147 H Calcium 7.8 L Total Bilirubin 0.7 AST 37 ALT 25 Alkaline Phosphatase 62 Total Protein 6.4 Albumin 2.8 L Globulin 3.6 Albumin/Globulin Ratio 0.8 L [facility] Medical History Acute urinary retention History of CVA (cerebrovascular accident) Myocardial infarct, 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 (08/09/11) 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/13) Other and unspecified hyperlipidemia (08/09/11) DVT (deep venous thrombosis) CHF (congestive heart failure) Atrial fibrillation ILD (interstitial lung disease) Hyperglycemia Controlled insulin dependent diabetes mellitus CVA (cerebral vascular accident) Facial laceration Weakness Acute hyponatremia Rheumatoid arthritis History of stroke with residual deficit Diabetes mellitus Hyperlipidemia Antiphospholipid antibody syndrome Pacemaker Myocardial infarction Systolic heart failure DVT (deep venous thrombosis) CAD (coronary artery disease) Cardiac arrhythmia Chronic systolic congestive heart failure (09/01/15) Hyperlipidemia (09/01/15) Essential hypertension (09/01/15) Coronary artery disease involving [place] coronary artery of [place] heart without angina pectoris (09/01/15) Cerebrovascular accident (CVA) involving left middle cerebral artery territory (09/01/15) Chronic atrial flutter (09/01/15) Hemiparesis affecting dominant side as late effect of cerebrovascular accident (01/27/15) Aphasia following cerebrovascular disease (01/27/15) Stenosis of left carotid artery (12/22/13) Type 2 diabetes mellitus Surgical History AICD (automatic cardioverter/defibrillator) present History of angioplasty Presence of cardiac pacemaker Social History marital status: household members: spouse and caregiver Smoking Status: Never smoker alcohol intake: never substance use type: does not use Assessment & Plan Assessment & Plan narrative: 1. Sepsis-actual sepsis syndrome seems to have been resolved. Continue treatment as listed below 2. UTI with urinary retention-continue with Zhu catheter in place. Urine culture pre hospitalization growing Pseudomonas (and hospital/ER obtained urine culture also growing Gram-negative bacilli) that is sensitive to current antibiotic therapy with meropenem. Continue the parenteral antibiotics for now. Awaiting results from his ER cultures as well. Blood cultures have been negative times 24+ hours 3. Pulmonary-patient has yet to develop any more classic pneumonia type symptoms. I do not believe there is an acute process ongoing from a pulmonary standpoint. He does clearly have abnormalities likely chronic perhaps related to chronic aspiration etcetera. I am actually going to discontinue his vancomycin as I do not think there is a primary pulmonary process here, blood cultures have been negative, and we do have the Pseudomonas from his urine 4. Diabetes-adequate control of blood sugars for now. Continue current insulin therapies 5. Coronary artery disease-no evidence of active ischemia at this time. Continue to monitor and continue usual medications 6. Rheumatoid arthritis-patient apparently is chronically immunosuppressed with Humira as treatment for his rheumatoid arthritis. 7. Antiphospholipid antibody syndrome-continue with Pradaxa 8. Hypertension-patient with blood pressure on the low side I am going to go ahead and reduce his dose of carvedilol I would not want to discontinue it completely, given his history of coronary artery disease 9. Congestive heart failure-echocardiogram shows persistence of a cardiomyopathy with ejection fraction in the 20-25% range. There does appear to be some new anterior and lateral hypokinesis since prior study of 2022. No active symptoms and do not believe there is active ischemia or infarction at this time. I am going to reduce his IV fluids for now and can probably fully discontinue them by morning 10. History of CVA causing right-sided weakness and aphasia-consider physical therapy but for now hold off. Speech therapy may provide some benefit 11. VTE prophylaxis- Pradaxa as above for his antiphospholipid antibody syndrome Dr. Epstein to resume care tomorrow Saturday the 06 of September Time-Based Coding :: [TOTAL MINUTES] spent with patient and on the chart (including review of chart, obtaining history, exam, reviewing outside data, placing orders, documenting exam and treatment plan, and counseling patient) on [DATE]. 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
[2025-09-05] MEDS: INSULIN GLARGINE 100 UNIT/ML 3ML PEN 15 UNIT SUBCUT (08:48)
[2025-09-05] MEDS: INSULIN LISPRO 100 UNIT/ML 3ML VIAL SUBCUT ×4 (08:49→20:45)
[2025-09-05] MEDS: DABIGATRAN 75 MG CAPSULE 150 MG PO ×2 (08:51→19:59)
[2025-09-05] MEDS: CHOLECALCIFEROL (VITAMIN D3) 5,000 UNIT TABLET 5000 UNIT PO (08:51)
[2025-09-05] MEDS: SERTRALINE 50 MG TABLET 200 MG PO (08:52)
[2025-09-05] MEDS: FOLIC ACID 1 MG TABLET 3 MG PO (08:52)
--- NOTE | 2025-09-05 09:48 | PC.NURSE ---
Pt is alert and oriented, hx of cva. Patient is nonverbal, states that he is able to say one or two words and nods his yead yes/no. He denies discomfort. LS are clear and he is comfortable in his bed. Insulin given, bs 132 and pt ate half of his meal.
[2025-09-05] MEDS: SODIUM CHLORIDE 0.9% 1,000 ML 100 ML IV (12:39)
--- NOTE | 2025-09-05 14:19 | CM.DPC ---
DCP Cont: Per MD, pt's labs improving and EF 20-25% and getting close to baseline and able to answer yes/no questions or one word answers due to his hx of CVA and ongoing residuals. Spouse and Dtr bedside and they provide assist at home for pt at baseline. 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 ST ordered and pending for tomorrow when they return to work. Plan: SW to follow closely for ST eval and potential PT eval to confirm safe d/c home with spouse and Dtr and any further identified discharge planning needs. СВЕТЛАНА Aponte
[2025-09-05 17:40] LABS: Clostridium Difficile Tox PCR Negative for C. diff (Negative)
[2025-09-05 19:20] VITALS: BP 115/69; PULSE 113; RESP 17; TEMP 36.8; O2SAT 96
[2025-09-05] MEDS: ATORVASTATIN 20 MG TABLET PO (19:59)
[2025-09-05] MEDS: METOPROLOL TARTRATE 5 MG/5 ML INJ IV (22:16)
[2025-09-05 23:11] VITALS: BP 110/67; PULSE 94; RESP 17; TEMP 36.6; O2SAT 97
[2025-09-06 03:58] VITALS: BP 107/65; PULSE 111; RESP 18; TEMP 36.2; O2SAT 97
[2025-09-06] MEDS: METOPROLOL TARTRATE 5 MG/5 ML INJ IV (04:58)
[2025-09-06] MEDS: MEROPENEM 1 GM in SODIUM CHLORIDE 0.9% 100 ML IV ×3 (04:59→21:30)
[2025-09-06 05:47] LABS: Add Manual Diff / Slide Review NO; Hematocrit 30.9 % (41-53); Hemoglobin 10.8 g/dL (13.5-17.5); Lymphocytes Absolute Auto 1400 /uL (1100-4500); Mean Corpuscular HGB Conc 34.9 % (30-36); Mean Corpuscular Hemoglobin 32.4 PG (26-34); Mean Corpuscular Volume 92.8 fL (80-100); Platelet Count 195 X10^3/uL (150-400)
[2025-09-06 06:00] VITALS: PULSE 153
[2025-09-06] MEDS: DIGOXIN 500 MCG/2 ML AMPUL IV (06:00)
[2025-09-06] MEDS: PANTOPRAZOLE DR 40 MG TABLET PO (06:01)
[2025-09-06 06:05] LABS: Alanine Aminotransferase 64 IU/L (<50); Albumin 3.1 g/dL (3.5-5.0); Albumin Globulin Ratio 0.8 (1.0-2.8); Alkaline Phosphatase 77 U/L (38-126); Blood Urea Nitrogen 14 mg/dL (9-20); Calcium 7.7 mg/dL (8.4-10.2); Carbon Dioxide 20 mmol/L (22-32); Chloride 100 mmol/L (98-107); Estimated Glomerular Filt Rate > 60 mL/min (>60); Globulin 3.8 g/dL (1.7-4.1); Glucose 157 mg/dL (70-99); HEMOLYSIS 22 (0-50); Potassium 3.8 mmol/L (3.4-5.1); Sodium 128 mmol/L (137-145); Total Protein 6.9 g/dL (6.3-8.2)
--- NOTE | 2025-09-06 07:59 | PM.PN.IH.1 ---
Subjective Subjective Date Patient Seen: 09/06/25 Time Patient Seen: 07:59 Interval history: Patient seen and evaluated this morning. Patient uncomfortable with complaining of right-sided hip pain. Vital signs show tachycardia. He went into AFib with RVR. Previous history of atrial fibrillation but not controlled. He goes in and out of it. Blood pressures been a little bit low. Patient is aphasic and does not communicate. Oxygen status is stable with the 97% on room air. Previously has not had a difficulty with swallowing. Labs echocardiogram scans were reviewed as well as previous notes. Exam Vital Signs (past 8 hours): - 09/06/25 03:58 09/06/25 06:00 Temperature 97.2 F L Pulse Rate 111 H 153 H Respiratory Rate 18 Blood Pressure 107/65 Pulse Oximetry 97 Oxygen Flow Rate 0 Oxygen Delivery Method Room Air Oxygen Flow Rate 0 Narrative Exam Narrative: Gen.: Alert response non communicative HEENT: Pupils equal round and reactive or mucosa is moist Cardio: S1-S2 irregular rate and rhythm Respiratory: Respiratory status normal respiratory effort decreased breath sounds at bases Abdomen: Soft nontender no rebound or guarding no liver spleen enlargement no appreciable hernias Extremities: Right-sided deficits with with hemiparesis Neurologic: Aphasia. Objective Labs 09/06/25 04:25 09/06/25 04:25 Labs: Laboratory Results - last 24 hr 09/05/25 09/05/25 09/05/25 08:25 10:54 16:20 WBC RBC Hgb Hct MCV MCH MCHC RDW Plt Count Neut % (Auto) Lymph % (Auto) [place] % (Auto) Eos % (Auto) Baso % (Auto) Neut # (Auto) Lymph # (Auto) [place] # (Auto) Eos # (Auto) Baso # (Auto) Sodium Potassium Chloride Carbon Dioxide BUN Creatinine Estimated GFR BUN/Creatinine Ratio Glucose POC Whole Bld Glucose 132 H 168 H Calcium Total Bilirubin AST ALT Alkaline Phosphatase Total Protein Albumin Globulin Albumin/Globulin Ratio C. difficile Tox (PCR) Negative for c. diff 09/05/25 09/05/25 09/06/25 17:28 20:28 04:25 WBC 18.1 H RBC 3.33 L Hgb 10.8 L Hct 30.9 L MCV 92.8 MCH 32.4 MCHC 34.9 RDW 17.2 H Plt Count 195 Neut % (Auto) 83.9 H Lymph % (Auto) 7.9 L [place] % (Auto) 7.6 Eos % (Auto) 0.3 L Baso % (Auto) 0.3 Neut # (Auto) 56552 H Lymph # (Auto) 1400 [place] # (Auto) 1400 H Eos # (Auto) 100 Baso # (Auto) 100 Sodium 128 L Potassium 3.8 Chloride 100 Carbon Dioxide 20 L BUN 14 Creatinine 0.83 Estimated GFR > 60 BUN/Creatinine Ratio 16.9 Glucose 157 H POC Whole Bld Glucose 209 H 223 H Calcium 7.7 L Total Bilirubin 0.8 AST 98 H ALT 64 H Alkaline Phosphatase 77 Total Protein 6.9 Albumin 3.1 L Globulin 3.8 Albumin/Globulin Ratio 0.8 L C. difficile Tox (PCR) 09/06/25 07:52 WBC RBC Hgb Hct MCV MCH MCHC RDW Plt Count Neut % (Auto) Lymph % (Auto) [place] % (Auto) Eos % (Auto) Baso % (Auto) Neut # (Auto) Lymph # (Auto) [place] # (Auto) Eos # (Auto) Baso # (Auto) Sodium Potassium Chloride Carbon Dioxide BUN Creatinine Estimated GFR BUN/Creatinine Ratio Glucose POC Whole Bld Glucose 167 H Calcium Total Bilirubin AST ALT Alkaline Phosphatase Total Protein Albumin Globulin Albumin/Globulin Ratio C. 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/13) Other and unspecified hyperlipidemia (08/09/11) DVT (deep venous thrombosis) CHF (congestive heart failure) Atrial fibrillation ILD (interstitial lung disease) Hyperglycemia Controlled insulin dependent diabetes mellitus CVA (cerebral vascular accident) Facial laceration Weakness Acute hyponatremia Rheumatoid arthritis History of stroke with residual deficit Diabetes mellitus Hyperlipidemia Antiphospholipid antibody syndrome Pacemaker Myocardial infarction Systolic heart failure DVT (deep venous thrombosis) CAD (coronary artery disease) Cardiac arrhythmia Chronic systolic congestive heart failure (09/01/15) Hyperlipidemia (09/01/15) Essential hypertension (09/01/15) Coronary artery disease involving [place] coronary artery of [place] heart without angina pectoris (09/01/15) Cerebrovascular accident (CVA) involving left middle cerebral artery territory (09/01/15) Chronic atrial flutter (09/01/15) Hemiparesis affecting dominant side as late effect of cerebrovascular accident (01/27/15) Aphasia following cerebrovascular disease (01/27/15) Stenosis of left carotid artery (12/22/13) Type 2 diabetes mellitus Surgical History AICD (automatic cardioverter/defibrillator) present History of angioplasty Presence of cardiac pacemaker Social History marital status: household members: spouse and caregiver Smoking Status: Never smoker alcohol intake: never substance use type: does not use Assessment & Plan Assessment and plan (1) Sepsis: Qualifiers: Sepsis acute organ dysfunction status: unspecified Sepsis type: sepsis due to unspecified organism Qualified Code(s): A41.9 - Sepsis, unspecified organism Status: Acute (2) Acute UTI: Status: Acute Plan Sepsis-due to urinary tract infection. Has a Zhu catheter in place. Urine grew out Pseudomonas. Currently he is sensitive to meropenem. Continue with IV antibiotics. Blood cultures are negative so far. Sepsis seems to has continued to resolve although white blood cell count is elevated. Blood pressure still a little bit soft. UTI with urinary retention-continue with Zhu catheter in place. Pseudomonas. Patient on Mirapex him. Continue to monitor blood pressure and urine output. Culture sensitivity from previous hospitalization reviewed. AFib with rapid ventricular response. Patient went into atrial fibrillation. He is quite tachycardic. I am going to go ahead and start him on Cardizem drips. And start him on oral metoprolol. Her hopefully his blood pressure will tolerate this. He is already anticoagulated due to his longstanding history of antiphospholipid antibody syndrome with multiple history of vascular clots. Congestive heart failure systolic. Patient has a poor ejection fraction of 20%. Known history of cardiac arrest pacemaker implantation underlying coronary artery disease. Monitor fluid electrolyte balance. Insulin dependent Diabetes subcutaneous insulin per protocol. Coronary artery disease-chronic stable. Place on home medication. Rheumatoid arthritis on outpatient Humira. Immune suppression present. Antiphospholipid antibody syndrome-continue with Pradaxa Hypertension-continue to adjust blood pressure medication to prevent hypotension Previous history of CVA causing right-sided weakness and aphasia VTE prophylaxis- Pradaxa as above for his antiphospholipid antibody syndrome Discussed current care with his who is at the bedside. Reconfirms is DNR DNI status. Time-Based Coding :: [TOTAL MINUTES] spent with patient and on the chart (including review of chart, obtaining history, exam, reviewing outside data, placing orders, documenting exam and treatment plan, and counseling patient) on [DATE]. 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
[2025-09-06 08:00] VITALS: BP 126/76; PULSE 96; RESP 12; TEMP 36.6; O2SAT 96
[2025-09-06] MEDS: ACETAMINOPHEN 325 MG TABLET 650 MG PO (08:21)
[2025-09-06] MEDS: CHOLECALCIFEROL (VITAMIN D3) 5,000 UNIT TABLET 5000 UNIT PO (08:22)
[2025-09-06] MEDS: DABIGATRAN 75 MG CAPSULE 150 MG PO ×2 (08:22→21:30)
[2025-09-06] MEDS: FOLIC ACID 1 MG TABLET 3 MG PO (08:22)
[2025-09-06] MEDS: SERTRALINE 50 MG TABLET 200 MG PO (08:22)
--- NOTE | 2025-09-06 11:08 | DI.CT.S_ITS ---
PROCEDURE: CT PEL WO CON
--- NOTE | 2025-09-06 11:41 | PC.NURSE ---
Patient complaining of r.lower quadrant pain, given oxycodone 10mg and not helpful. Called and he ordered iv dilaudid 0.5mg iv q 4, this has been given and really did not give him any relief. CT of pelvis has been ordered and they just took patient. His IV was leaking so new iv us guided stared on his r.forearm. Family in room.
[2025-09-06 12:00] VITALS: BP 117/73; PULSE 86; RESP 16; TEMP 36.5; O2SAT 97
--- NOTE | 2025-09-06 15:52 | CM.DPC ---
DCP Cont: Per MD, pt with new AFIB/RVR today and complaining of pelvic/abd pain and to work with ST for swallow issues and not yet stable for discharge. PT not yet ordered. Pt taken to imaging for CT of pelvis to determine any further medical concerns or source of discomfort. Discharge planning needs remain unclear at this time. SW to follow closely in AM. СВЕТЛАНА Aponte
--- NOTE | 2025-09-06 16:02 | ST.IPCSEOM ---
Visit Care Team Role Provider Type Eric Chu DO Emergency Provider Physician Referring Provider Specialty: Emergency Medicine Address: [address] [place] [address], [id number] Fax: Email: [email or web address] Delfino Epstein MD Attending Provider Physician Primary Care Provider Specialty: Family Practice Address: [address] [place] [address], [address], [address] Email: [email or web address] Júnior Fong MD Admit Provider Physician Other Providers Specialty: Internal Medicine Address: [address] [place] [address], [address], [address] Email: [email or web address] Current Diagnoses Sepsis, unspecified organism (09/04/25) Urinary tract infection, site not specified (09/04/25) Past Medical History (Last Reviewed 09/04/25 @ 08:43 by Júnior Fong MD) Acute hyponatremia (Medical) Acute urinary retention (Medical) Antiphospholipid antibody syndrome (Medical) Aphasia following cerebrovascular disease (Medical 01/27/15) Atrial fibrillation (Medical) CAD (coronary artery disease) (Medical) Cardiac arrhythmia (Medical) Cerebrovascular accident (CVA) involving left middle cerebral artery territory (Medical 09/01/15) CHF (congestive heart failure) (Medical) Chronic atrial flutter (Medical 09/01/15) Chronic systolic congestive heart failure (Medical 09/01/15) Controlled insulin dependent diabetes mellitus (Medical) Coronary artery disease involving [place] coronary artery of [place] heart without angina pectoris (Medical 09/01/15) CVA (cerebral vascular accident) (Medical) Diabetes mellitus (Medical) DVT (deep venous thrombosis) (Medical) DVT (deep venous thrombosis) (Medical) Essential hypertension (Medical 09/01/15) Facial laceration (Medical) Hemiparesis affecting dominant side as late effect of cerebrovascular accident (Medical 01/27/15) History of CVA (cerebrovascular accident) (Medical) History of stroke with residual deficit (Medical) Right-sided neurological deficits Hyperglycemia (Medical) Hyperlipidemia (Medical 09/01/15) Hyperlipidemia (Medical) ILD (interstitial lung disease) (Medical) 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 (Medical 05/04/13) Myocardial infarct, old (Medical 08/09/11) Myocardial infarction (Medical) Other and unspecified hyperlipidemia (Medical 08/09/11) Pacemaker (Medical) Rheumatoid arthritis (Medical) Stenosis of left carotid artery (Medical 12/22/13) Systolic heart failure (Medical) Type 2 diabetes mellitus (Medical) Weakness (Medical) Speech-Language Pathology 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 Delfino Epstein of [facility] primary care with multiple medical issues including aphasia after a stroke several years ago, antiphospholipid antibody syndrome causing hypercoagulable state chronically anticoagulated, type 2 diabetes, chronic heart failure with reduced ejection fraction, coronary artery disease, paroxysmal AFib/ flutter, and interstitial lung disease/bronchiectasis admitted with probable urosepsis Patient presented to the [facility] Emergency Department early day of admission with increased confusion nausea and vomiting. Patient is aphasic but normally able to nod yes or no to simple questions but has been able to do this. Patient is somewhat recently had Zhu catheter placed for urinary retention and had this changed several days prior to admission. Urine culture is growing Gram-negative rods and patient has been on broad-spectrum oral antibiotic therapy and despite this was febrile upon presentation in the emergency department as well as his confusion and GI symptoms. ER evaluation demonstrates tachycardia and modest hypotension as well as leukocytosis with left shift, hyponatremia, hyperglycemia but normal renal function. Patient also with elevated bilirubin. In addition patient was found to be positive for norovirus Chest x-ray demonstrated bilateral infiltrates consistent with CT scan done August 20 which was similar to CT scan done in February felt to be due to some degree of probable chronic aspiration bronchiectasis and interstitial lung disease. Abdominal CT basically unremarkable except for possibility of prostatitis (as per communication from ER physician, full radiology interpretation not yet available). Head CT unremarkable In the ER patient was felt to be septic received appropriate care including broad-spectrum IV antibiotics cultures were obtained and vigorous fluid resuscitation with improvement in vital signs He is admitted to continue his care. [facility] Medical History Acute urinary retention History of CVA (cerebrovascular accident) Myocardial infarct, old (08/09/11) correction current use of anticoagulant (05/04/13) Other and unspecified hyperlipidemia (08/09/11) DVT (deep venous thrombosis) CHF (congestive heart failure) Atrial fibrillation ILD (interstitial lung disease) Hyperglycemia Controlled insulin dependent diabetes mellitus CVA (cerebral vascular accident) Facial laceration Weakness Acute hyponatremia Rheumatoid arthritis History of stroke with residual deficit Diabetes mellitus Hyperlipidemia Antiphospholipid antibody syndrome Pacemaker Myocardial infarction Systolic heart failure DVT (deep venous thrombosis) CAD (coronary artery disease) Cardiac arrhythmia Chronic systolic congestive heart failure (09/01/15) Hyperlipidemia (09/01/15) Essential hypertension (09/01/15) Coronary artery disease involving [place] coronary artery of [place] heart without angina pectoris () Cerebrovascular accident (CVA) involving left middle cerebral artery territory (09/01/15) Chronic atrial flutter (09/01/15) Hemiparesis affecting dominant side as late effect of cerebrovascular accident (01/27/15) Aphasia following cerebrovascular disease (01/27/15) Stenosis of left carotid artery (12/22/13) Type 2 diabetes mellitus Pt referred for ST evaluation d/t Pt reporting Pt with swallowing difficulties, specifically exhibiting residue/pocketing in mouth while in hospital as well as Pt with hx of aphasia. Subjective Pt laying in bed upon ST room with his and Observations brothers and daughter present at bedside. Pt appeared to be in pain, characterized by grimaces, however unable to communicate pain specifics d/t hx of aphasia and nonverbal. Pt able to communicate shaking head Y/N. Pt compliant with ST raising HOB to 90degrees utilizing bed controls for PO trials. Pt reports he was eating eggs this morning, however was unable to clear some of them in his mouth resulting in her scooping them out. Pt states he has no difficulties at home with swallowing. Pt reports she has been supporting Pt since his CVA 12 years ago and has been staying on top of his swallowing by ensuring he is eating slowly and 1 bite/sip at a time, as well as having MBS's done. Pt last MBS was completed 04/13/25 with impressions: *When reviewing and comparing the 2023 MBSS with today' s MBSS, there is overall improvement in base of tongue retraction strength, hyolaryngeal and epiglottal function. Pt has been receiving swallow therapy with focus of increased base of tongue strength since May 2024. Pt's reports consistent practice of recommended exercises at home. It appears these exercises and consistent practice have been effective in improving this pt's swallowing as well as reducing his aspirations risk *Pt was observed to protect his airway with no observed laryngeal penetration or tracheal aspiration. *With semisolid an solid trials there was increased pooling within the valeculla and some residual was noted on the aryepiglottic folds. If the pt is aspiration, it would likely be related to traces of residual/secretions entering the airway. *Pt was reported to have a strong protective cough most of the time Patient Appropriate No: Pt was recenty (January 2025) discharged from with for Therapy dysphagia goals met Recommendations Diet Comments No changes in diet recommended. Aspiration Precautions Recommended Left Head Turn Precautions Additional Increased liquids during meals would likely reduce the Precautions valeculla pooling Reported by Patient/Caregiver Current Diet Regular (IDDSI 7) Baseline Feeding Needs some assistance Method The IDDSI Framework Protocol: IDDSI.1 Objective Assessment Mental Status Alert,Cooperative Oral Integrity WFL Dentition Upper dentures/partials,Lower dentures/partials Comment ST unable to complete formal oral motor exam d/t Pt with difficulties participating secondary to pain and difficulties following commands, however Pt able to open mouth when cued to say ahhh, however limited jaw opening. Informally, suspects Pt with mild lingual and labial weakness. Food and Liquid Trials Position During Upright (90 degrees) Assessment Liquids Trialed Thin (IDDSI 0) Solid Trials Purred (IDDSI 4),Minced & Moist (IDDSI 5),Regular ( IDDSI 7) Oral Impairment Mildly impaired Oral Phase Comments Pt consumed 1 robert cracker crushed in pudding, about 1 oz of vanilla pudding, 1 robert cracker and 4 oz of thin water via straw/cup. Pt required hand over hand assistance drinking from cup and eating pudding, however able to eat robert cracker independently. For thin water via cup, Pt exhibited good oral acceptance and containment, mild bolus holding, suspected delay in swallow, no overt s/s of aspiration such as coughing or choking. Pt with 1x immediate weak cough reflex post swallow of thin water via straw. Pt placed his full dentures in place prior to PO trials, upper dentures with difficulties staying in place even with denture adhesive applied. For pudding and robert cracker crushed in pudding, Pt exhibited good oral acceptance and containment, prolonged bolus formation, extended ap transport, minimal oral stasis. For robert crackers, Pt exhibited adequate mastication time, left sided oral stasis requiring alternating liquids to clear residue. No overt s/s of aspiration with solids. Pharyngeal Mildly impaired Impairment Pharyngeal Phase See oral phase comments. Comments Fatigue/Endurance Endurance WNL The IDDSI Framework Protocol: IDDSI.1 Findings Swallowing Function Oropharyngeal phase dysphagia Severity of Swallow Mildly impaired Impairment Prognosis Good Recommendations Instrumental Yes Assessment Swallowing Treatment Yes Frequency Daily while inpatient Recommended Solids Soft & Bite-sized (IDDSI 6) Recommended Liquids Thin (IDDSI 0) Other Pt presents with suspected mild oropharyngeal dysphagia Recommendations . Pt pain level seems to be barrier for his PO intake. ST recommends IDDSI 7 soft and bite sized and thin liquids. ST recommends consult with watch guard gate to ensure consuming primary nutrition/hydration. Pt just had a swallow study completed in April 2025, with observed improvements to swallow from previous MBS. ST to f/u with Pt in acute care to assess swallow function and diet tolerance and determine if repeat MBS is necessary . In regards to Pt's speech/language, Pt is at baseline and has worked with speech therapy in outpatient setting for several years and was discharged this year. Pt reports knowledge and awareness of tools to assist Pt with communication, such as low tech communication boards as well as having a high tech AAC device. ST is not warranted for speech/language at this time, however it is warranted to continue to assess swallow function and diet tolerance. ST educated Pt and his family on recommendations. Safety Precautions/ Remain upright (90 degrees) during all oral intake, Swallowing Upright position at least 30 minutes after meals,Small Recommendations bites and sips when eating,Slow rate; swallow between bites,No straw,Alternate liquids and solids Medication As Tolerated,Whole in Carrier,Crushed in Carrier Recommendations Referrals Recommended Dietary Referrals Education Patient/Caregiver Described results of evaluation,Patient expressed Education understanding of evaluation,Family/caregivers expressed understanding of evaluation,Family/caregivers expressed agreement with goals & treatment plans, Patient expressed understanding of feeding recommendations,Family/caregivers expressed understanding of safety precautions,Family/caregivers expressed understanding of feeding recommendations, Patient requires further education/training,Family/ caregivers require further education/training Goals Short-term Goals STG 1: Pt will tolerate prescribed diet with <5% overt s/s of aspiration/dysphagia with use of compensatory swallowing strategies and minimal cues. Long-term Goals 1. Pt will safely and efficiently tolerate least restrictive diet in order to meet his nutrition/ hydration needs.
[2025-09-06 18:00] VITALS: BP 108/73; PULSE 87; RESP 13; TEMP 35.9; O2SAT 97
[2025-09-06 19:00] VITALS: BP 104/66; PULSE 89; RESP 16; TEMP 36.5; O2SAT 95; O2SAT 97
[2025-09-06] MEDS: SODIUM CHLORIDE 0.9% 1,000 ML 75 ML IV (19:30)
[2025-09-06] MEDS: ATORVASTATIN 20 MG TABLET PO (21:30)
[2025-09-07] VITALS (9 sets, daily range): BP systolic 107–123; BP diastolic 63–69; PULSE 69–132; RESP 15–18; TEMP 35.6–36.8; O2SAT 95–100
[2025-09-07 05:44] LABS: Add Manual Diff / Slide Review NO; Hematocrit 31.4 % (41-53); Hemoglobin 10.9 g/dL (13.5-17.5); Lymphocytes Absolute Auto 700 /uL (1100-4500); Mean Corpuscular HGB Conc 34.6 % (30-36); Mean Corpuscular Hemoglobin 32.3 PG (26-34); Mean Corpuscular Volume 93.4 fL (80-100); Platelet Count 188 X10^3/uL (150-400)
[2025-09-07] MEDS: PANTOPRAZOLE DR 40 MG TABLET PO (05:48)
[2025-09-07] MEDS: MEROPENEM 1 GM in SODIUM CHLORIDE 0.9% 100 ML IV ×3 (05:48→20:58)
[2025-09-07 05:50] LABS: Alanine Aminotransferase 81 IU/L (<50); Albumin 2.9 g/dL (3.5-5.0); Albumin Globulin Ratio 0.8 (1.0-2.8); Alkaline Phosphatase 82 U/L (38-126); Blood Urea Nitrogen 17 mg/dL (9-20); Calcium 7.7 mg/dL (8.4-10.2); Carbon Dioxide 21 mmol/L (22-32); Chloride 100 mmol/L (98-107); Estimated Glomerular Filt Rate > 60 mL/min (>60); Globulin 3.6 g/dL (1.7-4.1); Glucose 171 mg/dL (70-99); HEMOLYSIS < 15 (0-50); Potassium 4.4 mmol/L (3.4-5.1); Sodium 127 mmol/L (137-145); Total Protein 6.5 g/dL (6.3-8.2)
--- NOTE | 2025-09-07 08:02 | PM.PN.IH.1 ---
Subjective Subjective Date Patient Seen: 09/07/25 Time Patient Seen: 08:02 Interval history: Patient seen and evaluated throughout the day yesterday. Having some right lower quadrant abdominal pain. Quite severe. Ended up repeating a CT scan which showed some presacral and retroperitoneal edema. Possibly due to infection. Required IV and oral pain medication. Pain appears to be a little bit better this morning controlled. Heart rate was controlled yesterday with increasing doses of beta-roz and loading dose of digoxin. He is on anticoagulation. He wakes up for me this morning examination shows no point specific tenderness in his abdomen. Not eating much yesterday. Last night was a good night. Family at bedside. Exam Vital Signs (past 8 hours): - 09/07/25 00:04 09/07/25 04:00 Temperature 96.0 F L 97.8 F Pulse Rate 91 H 92 H Respiratory Rate 16 18 Blood Pressure 114/68 108/68 Pulse Oximetry 97 97 Oxygen Flow Rate 0 Oxygen Delivery Method Room Air Oxygen Flow Rate 0 Narrative Exam Narrative: Gen.: Sleeping comfortably but arouses. HEENT: Pupils equal round and reactive. Oral mucosa is moist. Cardio: S1-S2 systolic murmur irregular rate and rhythm Respiratory: Lungs are clear no wheezes or crackles. Abdomen: Soft nondistended. No tenderness to palpation light or deep. No organomegaly Extremities: Right-sided deficits with weakness in upper and lower extremity chronic Neurologic: Aphasic Objective Labs 09/07/25 04:53 09/07/25 04:53 Labs: Laboratory Results - last 24 hr 09/06/25 09/06/25 09/06/25 11:13 17:01 21:23 WBC RBC Hgb Hct MCV MCH MCHC RDW Plt Count Neut % (Auto) Lymph % (Auto) [place] % (Auto) Eos % (Auto) Baso % (Auto) Neut # (Auto) Lymph # (Auto) [place] # (Auto) Eos # (Auto) Baso # (Auto) Sodium Potassium Chloride Carbon Dioxide BUN Creatinine Estimated GFR BUN/Creatinine Ratio Glucose POC Whole Bld Glucose 160 H 176 H 163 H Calcium Total Bilirubin AST ALT Alkaline Phosphatase Total Protein Albumin Globulin Albumin/Globulin Ratio 09/07/25 04:53 WBC 13.0 H RBC 3.36 L Hgb 10.9 L Hct 31.4 L MCV 93.4 MCH 32.3 MCHC 34.6 RDW 17.0 H Plt Count 188 Neut % (Auto) 82.7 H Lymph % (Auto) 5.7 L [place] % (Auto) 10.5 Eos % (Auto) 0.9 L Baso % (Auto) 0.2 Neut # (Auto) 55196 H Lymph # (Auto) 700 L [place] # (Auto) 1400 H Eos # (Auto) 100 Baso # (Auto) 0 Sodium 127 L Potassium 4.4 Chloride 100 Carbon Dioxide 21 L BUN 17 Creatinine 0.80 Estimated GFR > 60 BUN/Creatinine Ratio 21.3 Glucose 171 H POC Whole Bld Glucose Calcium 7.7 L Total Bilirubin 0.8 AST 124 H ALT 81 H Alkaline Phosphatase 82 Total Protein 6.5 Albumin 2.9 L Globulin 3.6 Albumin/Globulin Ratio 0.8 L PFSH Medical History Acute urinary retention History of CVA (cerebrovascular accident) Myocardial infarct, old (08/09/11) 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 (05/04/13) Other and unspecified hyperlipidemia (08/09/11) DVT (deep venous thrombosis) CHF (congestive heart failure) Atrial fibrillation ILD (interstitial lung disease) Hyperglycemia Controlled insulin dependent diabetes mellitus CVA (cerebral vascular accident) Facial laceration Weakness Acute hyponatremia Rheumatoid arthritis History of stroke with residual deficit Diabetes mellitus Hyperlipidemia Antiphospholipid antibody syndrome Pacemaker Myocardial infarction Systolic heart failure DVT (deep venous thrombosis) CAD (coronary artery disease) Cardiac arrhythmia Chronic systolic congestive heart failure (09/01/15) Hyperlipidemia (09/01/15) Essential hypertension (09/01/15) Coronary artery disease involving [place] coronary artery of [place] heart without angina pectoris (09/01/15) Cerebrovascular accident (CVA) involving left middle cerebral artery territory (09/01/15) Chronic atrial flutter (09/01/15) Hemiparesis affecting dominant side as late effect of cerebrovascular accident (01/27/15) Aphasia following cerebrovascular disease (01/27/15) Stenosis of left carotid artery (12/22/13) Type 2 diabetes mellitus Surgical History AICD (automatic cardioverter/defibrillator) present History of angioplasty Presence of cardiac pacemaker Social History marital status: household members: spouse and caregiver Smoking Status: Never smoker alcohol intake: never substance use type: does not use Assessment & Plan Assessment and plan (1) Acute UTI: Status: Acute (2) Sepsis: Qualifiers: Sepsis acute organ dysfunction status: unspecified Sepsis type: sepsis due to unspecified organism Qualified Code(s): A41.9 - Sepsis, unspecified organism Status: Acute Plan Sepsis-due to urinary tract infection. Has a Zhu catheter in place. Urine grew out Pseudomonas. Currently he is sensitive to meropenem. Continue with IV antibiotics. Patient's white blood cell count is down today. Afebrile. Patient does not have a chronic indwelling Zhu catheter. Zhu was placed in the hospital. UTI with urinary retention patient does not have a catheter at home. Will try to remove his catheter today. We will Atrial fibrillation heart rate much better controlled. With increasing doses of beta-roz. And digoxin loading. We did not need to place him on Cardizem drips yesterday. We will continue with oral medication for heart rate control. Seems to be better with ongoing treatment of his infection. Congestive heart failure systolic. Patient has a poor ejection fraction of 20%. Known history of cardiac arrest pacemaker implantation underlying coronary artery disease. On beta-roz anticoagulation and no signs of acute myocardial injury. There has been some changes in echocardiogram compared to previously. Insulin dependent Diabetes subcutaneous insulin per protocol. Blood sugars slightly elevated but under 200. Continue with Lantus and insulin sliding scale. Coronary artery disease-chronic stable. Place on home medication. Rheumatoid arthritis on outpatient Humira. Immune suppression present. Chronic and stable. Antiphospholipid antibody syndrome-continue with Pradaxa history of multiple venous thromboemboli. Hypertension-continue to adjust blood pressure medication to prevent hypotension Previous history of CVA causing right-sided weakness and aphasia VTE prophylaxis- Pradaxa as above for his antiphospholipid antibody syndrome Disposition and plan. Remove Zhu catheter today. Up out of bed to chair. Patient is not ambulatory at home. Anticipate hospitalization 24-48 more hours Time-Based Coding :: [TOTAL MINUTES] spent with patient and on the chart (including review of chart, obtaining history, exam, reviewing outside data, placing orders, documenting exam and treatment plan, and counseling patient) on [DATE]. Quality VTE Deep Vein Thrombosis/Pulmonary Embolism Present on Admission: No PROFEE Hog Cutter Document charge(s): Yes
[2025-09-07] MEDS: SERTRALINE 50 MG TABLET 200 MG PO (09:29)
[2025-09-07] MEDS: CHOLECALCIFEROL (VITAMIN D3) 5,000 UNIT TABLET 5000 UNIT PO (09:30)
[2025-09-07] MEDS: FOLIC ACID 1 MG TABLET 3 MG PO (09:30)
[2025-09-07] MEDS: DABIGATRAN 75 MG CAPSULE 150 MG PO ×2 (09:31→20:58)
[2025-09-07] MEDS: SODIUM CHLORIDE 0.9% 1,000 ML 75 ML IV ×2 (09:35→20:59)
--- NOTE | 2025-09-07 11:10 | ST.IPDYTX ---
Visit Care Team Role Provider Type Eric Chu DO Emergency Provider Physician Referring Provider Specialty: Emergency Medicine Address: [address] [place] [address], [id number] Fax: Email: [email or web address] MD Attending Provider Physician Primary Care Provider Specialty: Family Practice Address: [address] [place] [address], [address], [address] Email: [email or web address] Júnior Fong MD Admit Provider Physician Other Providers Specialty: Internal Medicine Address: [address] [place] [address], [address], [address] Email: [email or web address] JOB TRAINING SUPERVISOR Dysphagia Treatment JOB TRAINING SUPERVISOR Dysphagia Treatment Start: 09/07/25 10:51 Freq: Status: Active Protocol: Document 09/07/25 10:52 SS (Rec: 09/07/25 11:10 SS DESKTOP) Dysphagia Treatment Session Time Visit Start Time 10:20 Visit Stop Time 12:45 Total Visit Minutes 25 Visit Information Visit Number 2 Setting Assessment Location Acute Care Visit Type Note Type Treatment Note Patient Information Identification Type Name Subjective Chart reviewed and RN consulted. RN reported pt had no Observations difficulty swallowing pills in puree carrier this morning. She reported pt has had minimal appetite, though no overt s/sx of aspiration noted with PO intake . Pt laying in bed upon JOB TRAINING SUPERVISOR arrival room with spouse at bedside. JOB TRAINING SUPERVISOR assisted pt with bed controls to reposition to upright position for PO trials. Spouse reported that pt typically wears dentures at home, but has not been wearing them since admission due to pain/ discomfort as he has oral sores. Treatment Liquids Trialed Thin (IDDSI 0) Solids Trialed Purred (IDDSI 4),Soft & Bite-sized (IDDSI 6),Regular ( IDDSI 7) Administration Type Cup Single Sip,Cup Consecutive Sips,Straw,Self-Feeding Oral Strategies Upright at 90 degrees,Double Swallow,Alternate Liquids/ Solids Pharyngeal Sitting Upright (90 deg),Double Swallow,Small Bites and Strategies Sips,Alternate Liquids/Solids Treatment Activities JOB TRAINING SUPERVISOR complete therapeutic trials of thin liquids via cup and straw (single and sequential sips), puree via tsp, and soft and bite-sized via tsp with dynamic assessment of s/sx of oral dysphagia/aspiration. Disucssed recommendations with pt and spouse. Communicated with RN re: POC and recommendations. The IDDSI Framework Protocol: IDDSI.1 Assessment Patient Response to Good Treatment Rehab Potential Good Assessment of Across trials, pt was able to take small bites/sips and Improvement swallow multiple times to clear potential pharyngeal residue. He benefited from intermittent verbal cueing to alternative liquids and solids to clear oral and pharyngeal residue 2/2 inattention due to cognitive impairment. Additionally, pt demonstrated s/sx of GERD, including cough 3-4 minutes following intake, belching , and gesturing at chest area (perhaps to indicate feeling of pressure/fullness). Pt demonstrated slow and prolonged mastication with small amount of residue left in oral cavity. He was unable to fully masticate regular texture (sausage) and expectorated it. He demonstrated no overt s/sx of aspiration and denied feeling of globus sensation. Pt?s reported that he appears to be at baseline in regards to swallowing and speech/language function. Currently, pt presents with indications of mild chronic oropharyngeal dysphagia with no change from baseline. Oral phase was largely timely despite pt not wearing dentures. Pharyngeal phase cannot be objectively assessed at bedside though subjectively appeared timely and coordinated. No overt s/sx of aspiration observed with all PO trials. Recommend pt continue diet of soft and bite-sized textures (self-selecting softer foods as needed) and thin liquids with adherence to aspiration precautions below. Recommend continued management of GERD and 1:1 supervision with intake to ensure pt utilizing recommended strategies. Continue BID oral care protocol . Order discharged at this time. Please re-consult if changes to swallowing function during the course of admission. Recommendations Recommendations Continue Current Diet Liquids Order Thin (IDDSI 0) Diet Order Soft & Bite-sized (IDDSI 6) Medication As Tolerated,Whole in Carrier Recommendations Comments No changes in diet recommended. Additional Dietary 1:1 Supervision,Encourage to Self-Feed,Reminders to Use Needs Strategies Aspiration Precautions Recommended Upright at 90 Degrees,Alternate Liquids/Solids,Small Precautions Bites/Sips,Double Swallow,Check for Pocketing Additional Increased liquids during meals would likely reduce the Precautions valeculla pooling Treatment Plan Placement Home Recommendation after Discharge Appropriate for No Continued Therapy
[2025-09-07] MEDS: INSULIN LISPRO 100 UNIT/ML 3ML VIAL SUBCUT ×3 (12:56→20:57)
[2025-09-07] MEDS: BACLOFEN 10 MG TABLET PO (13:02)
--- NOTE | 2025-09-07 13:37 | DIET.CONS ---
Dietary Consultation Note Admission Date: 09/04/2025 05:24 Assessment: 69 y M admitted for sepsis. Dietitian screened for low MNA score. Pt receiving care from nursing staff, but noted pt consumed protein supplementation provided at lunch. Decreased recorded PO intakes and refused 1-2 meals. Placed on Dysphagia dinner tonight. Ht: 172.72 cm Wt: 75.75 kg BMI: 25.4 UBW: 73-75 kg in last year; no noted weight loss Last BM: 09/05/25 (09/05/25 18:00) MNA: 8 Ramsey Score: 14 Diet: 09/04/25 Breakfast Carbohydrate Consistent Diet Diet Modifications: Carbohydrate level: Medium (3 CHO) Bedtime snack: No Reflex DM orders: No Food Texture: Level 6-Soft & Bite-sized Liquid Consistency: Level 0 - Thin 09/07/25 Dinner Dysphagia Diet Diet Modifications: 1:1 supervision Food Texture: Level 6-Soft & Bite-sized Liquid Consistency: Level 0 - Thin Nutrition Percent Meal Consumed refused meal 09/06/25 18:00 Percent Meal Consumed 50% 09/05/25 18:00 Labs: RBC 3.36 X10^6/uL (4.5-5.9) L 09/07/25 04:53 Hgb 10.9 g/dL (13.5-17.5) L 09/07/25 04:53 Hct 31.4 % (41-53) L 09/07/25 04:53 Creatinine 0.80 mg/dL (0.66-1.25) 09/07/25 04:53 Lactate 1.8 mmol/L (0.7-2.1) 09/04/25 03:12 NT-Pro-B Natriuret Pep 877 pg/mL (<125) H 09/04/25 03:12 Nutrition Diagnosis: Inadequate oral intakes r/t suspected decreased appetite aeb <50% PO intakes recorded Interventions: Protein Supplementation BID until PO intakes 75% or more, monitor tolerance to dysphagia diet EER: 1700 (23 kcals/kg per BMI) 75 g protein (1g/kg per age) Monitoring/Evaluations: PO intakes Electronically Signed by: Alondra Bui 09/07/25 13:37 Clinical Dietitian [address] [address]
--- NOTE | 2025-09-07 15:15 | PC.NURSE ---
Report received from Tamara COHEN, patient resting in bed with 2 family members at bedside. Patient readjusted for comfort and wants to rest, no other needs or complaints at this time. Call light within reach. Continue to follow
--- NOTE | 2025-09-07 16:09 | CM.DPNOTE ---
DCP Continued: Reviewed EMR and team rounds for pt?s medical status. Per Provider, pt would benefit from continued IV abx treatment and stabilization before discharge home. PROVIDER NETWORK MANAGER spoke with pt , Felicity, who states a preference for pt to discharge home with supportive local family and COLETTE caregiver. She states she would also appreciate home health referral if possible with Adilene COLÓN, whom has been part of pt care team in past. PROVIDER NETWORK MANAGER sent referral and signed orders to Adilene COLÓN via secure email, pt accepted for RN, PT, ST services and will need dc summary sent when available. Plan: Anticipating discharge in 24-48 hours with family, Adilene COLÓN to follow with initial recovery. CM team following for possible IV abx needs. CM Team will continue to follow for coordination of discharge plans. SONG Garrido
[2025-09-07] MEDS: METOPROLOL TARTRATE 5 MG/5 ML INJ IV (16:10)
[2025-09-07] MEDS: ACETAMINOPHEN 325 MG TABLET 650 MG PO (16:26)
--- NOTE | 2025-09-07 16:57 | PC.NURSE ---
notified by automotive project engineer that patient's rate increased on telemetry afib 110-140's. Patient seen and assessed, BP as noted. Metoprolol 5mg IV given for HR sustained greater than 120 per prn orders. Patient also showing signs of discomfort/abdominal pain and medicated with pain meds as documented. Dr. Epstein notified. Order for additional one time dose of coreg to be given now, with dosing changed to coreg 12.5 tonight and to continue BID. Will continue to monitor.
[2025-09-07] MEDS: ATORVASTATIN 20 MG TABLET PO (20:58)
[2025-09-08] VITALS (9 sets, daily range): BP systolic 106–118; BP diastolic 63–73; PULSE 76–120; RESP 14–20; TEMP 36.3–36.8; O2SAT 85–98
[2025-09-08] MEDS: BACLOFEN 10 MG TABLET PO ×2 (01:41→09:58)
[2025-09-08] MEDS: ACETAMINOPHEN 325 MG TABLET 650 MG PO (01:41)
[2025-09-08] MEDS: SENNOSIDES 8.6 MG TABLET PO (05:29)
[2025-09-08] MEDS: PANTOPRAZOLE DR 40 MG TABLET PO (05:29)
[2025-09-08] MEDS: MEROPENEM 1 GM in SODIUM CHLORIDE 0.9% 100 ML IV (05:29)
[2025-09-08 05:46] LABS: Add Manual Diff / Slide Review NO; Hematocrit 28.4 % (41-53); Hemoglobin 9.9 g/dL (13.5-17.5); Lymphocytes Absolute Auto 700 /uL (1100-4500); Mean Corpuscular HGB Conc 35.0 % (30-36); Mean Corpuscular Hemoglobin 32.5 PG (26-34); Mean Corpuscular Volume 93.0 fL (80-100); Platelet Count 179 X10^3/uL (150-400)
[2025-09-08 05:57] LABS: Alanine Aminotransferase 117 IU/L (<50); Albumin 2.6 g/dL (3.5-5.0); Albumin Globulin Ratio 0.7 (1.0-2.8); Alkaline Phosphatase 83 U/L (38-126); Blood Urea Nitrogen 21 mg/dL (9-20); Calcium 8.0 mg/dL (8.4-10.2); Carbon Dioxide 20 mmol/L (22-32); Chloride 99 mmol/L (98-107); Estimated Glomerular Filt Rate > 60 mL/min (>60); Globulin 3.6 g/dL (1.7-4.1); Glucose 196 mg/dL (70-99); HEMOLYSIS < 15 (0-50); Potassium 4.3 mmol/L (3.4-5.1); Sodium 125 mmol/L (137-145); Total Protein 6.2 g/dL (6.3-8.2)
[2025-09-08] MEDS: INSULIN LISPRO 100 UNIT/ML 3ML VIAL SUBCUT (08:22)
[2025-09-08] MEDS: INSULIN GLARGINE 100 UNIT/ML 3ML PEN 15 UNIT SUBCUT (08:23)
[2025-09-08] MEDS: DABIGATRAN 75 MG CAPSULE 150 MG PO ×2 (08:24→22:48)
[2025-09-08] MEDS: CHOLECALCIFEROL (VITAMIN D3) 5,000 UNIT TABLET 5000 UNIT PO (08:24)
[2025-09-08] MEDS: FOLIC ACID 1 MG TABLET 3 MG PO (08:26)
[2025-09-08] MEDS: SERTRALINE 50 MG TABLET 200 MG PO (08:28)
[2025-09-08] MEDS: CEFEPIME 2 GM in SODIUM CHLORIDE 0.9% 100 ML IV ×2 (09:59→22:55)
--- NOTE | 2025-09-08 11:26 | PM.PN.IH.1 ---
Subjective Subjective Date Patient Seen: 09/08/25 Time Patient Seen: 11:26 Interval history: Patient seen and evaluated this morning family at bedside. Pain is better controlled. Although still some apparent discomfort in the right lower quadrant area. Patient's Zhu catheter has been removed. Limited urine output. Has not had a bowel movement for several days. Labs reviewed. Heart rate blood pressure currently stable. Exam Vital Signs (past 8 hours): - 09/08/25 05:00 09/08/25 10:00 Temperature 97.8 F 97.3 F L Pulse Rate 76 88 Respiratory Rate 17 14 Blood Pressure 115/63 106/69 Pulse Oximetry 98 97 Oxygen Flow Rate 0 0 Oxygen Delivery Method Room Air Oxygen Flow Rate 0 Narrative Exam Narrative: Gen.: Alert responsive HEENT: Pupils equal round and reactive or mucosa is moist Cardio: S1-S2 systolic murmur irregular rhythm Respiratory: Normal respiratory effort lungs are clear. Abdomen: Soft. Maybe some mild tenderness to palpation in the right lower quadrant. Extremities: Hemiparesis dense on the right due to previous cerebrovascular accident Neurologic: Patient is aphasic. Objective Labs 09/08/25 05:36 09/08/25 05:36 Labs: Laboratory Results - last 24 hr 09/07/25 09/07/25 09/07/25 12:43 16:28 21:02 WBC RBC Hgb Hct MCV MCH MCHC RDW Plt Count Neut % (Auto) Lymph % (Auto) Baxter % (Auto) Eos % (Auto) Baso % (Auto) Neut # (Auto) Lymph # (Auto) Baxter # (Auto) Eos # (Auto) Baso # (Auto) Sodium Potassium Chloride Carbon Dioxide BUN Creatinine Estimated GFR BUN/Creatinine Ratio Glucose POC Whole Bld Glucose 181 H 219 H 207 H Calcium Total Bilirubin AST ALT Alkaline Phosphatase Total Protein Albumin Globulin Albumin/Globulin Ratio 09/08/25 09/08/25 05:36 07:36 WBC 10.6 RBC 3.05 L Hgb 9.9 L Hct 28.4 L MCV 93.0 MCH 32.5 MCHC 35.0 RDW 17.4 H Plt Count 179 Neut % (Auto) 82.0 H Lymph % (Auto) 6.7 L Baxter % (Auto) 9.8 Eos % (Auto) 1.1 L Baso % (Auto) 0.4 Neut # (Auto) 8700 H Lymph # (Auto) 700 L Baxter # (Auto) 1000 H Eos # (Auto) 100 Baso # (Auto) 0 Sodium 125 L Potassium 4.3 Chloride 99 Carbon Dioxide 20 L BUN 21 H Creatinine 0.84 Estimated GFR > 60 BUN/Creatinine Ratio 25.0 H Glucose 196 H POC Whole Bld Glucose 182 H Calcium 8.0 L Total Bilirubin 0.7 AST 169 H ALT 117 H Alkaline Phosphatase 83 Total Protein 6.2 L Albumin 2.6 L Globulin 3.6 Albumin/Globulin Ratio 0.7 L [facility] Medical History Acute urinary retention History of CVA (cerebrovascular accident) Myocardial infarct, old (08/09/11) care home current use of anticoagulant (05/04/13) Other and unspecified hyperlipidemia (08/09/11) DVT (deep venous thrombosis) CHF (congestive heart failure) Atrial fibrillation ILD (interstitial lung disease) Hyperglycemia Controlled insulin dependent diabetes mellitus CVA (cerebral vascular accident) Facial laceration Weakness Acute hyponatremia Rheumatoid arthritis History of stroke with residual deficit Diabetes mellitus Hyperlipidemia Antiphospholipid antibody syndrome Pacemaker Myocardial infarction Systolic heart failure DVT (deep venous thrombosis) CAD (coronary artery disease) Cardiac arrhythmia Chronic systolic congestive heart failure (09/01/15) Hyperlipidemia (09/01/15) Essential hypertension (09/01/15) Coronary artery disease involving napaimute coronary artery of napaimute heart without angina pectoris (09/01/15) Cerebrovascular accident (CVA) involving left middle cerebral artery territory (09/01/15) Chronic atrial flutter (09/01/15) Hemiparesis affecting dominant side as late effect of cerebrovascular accident (01/27/15) Aphasia following cerebrovascular disease (01/27/15) Stenosis of left carotid artery (12/22/13) Type 2 diabetes mellitus Surgical History AICD (automatic cardioverter/defibrillator) present History of angioplasty Presence of cardiac pacemaker Social History marital status: household members: spouse and caregiver Smoking Status: Never smoker alcohol intake: never substance use type: does not use Assessment & Plan Assessment and plan (1) Sepsis: Qualifiers: Sepsis acute organ dysfunction status: unspecified Sepsis type: sepsis due to unspecified organism Qualified Code(s): A41.9 - Sepsis, unspecified organism Status: Acute (2) Acute prostatitis: Status: Acute Plan Sepsis improved. Due to urinary tract source urinary culture shows Pseudomonas. Switch antibiotics from meropenem to cephalosporin today. Anticipate out patient's cephalosporin. Patient has low albumin mild anemia and transaminitis due to most likely sepsis and infection. White blood cell count significantly improved blood pressure stabilized. Still mildly low albumin and hemoglobin hematocrit assuming due to infectious etiology. As well as transaminitis. Continue to monitor results. Urinary tract infection. Zhu catheter was removed. Has not voided significantly. Has 300 cc in his bladder. If needs be will do an in and out catheter to help with this. We will start Flomax. Also think there is a component of constipation we will work on that today. Atrial fibrillation with RVR. Patient on anticoagulation. Went in and out of AFib again yesterday. Increased his dose of beta-roz he is tolerating Coreg 12.5 b.i.d.. Blood pressure stable. Heart rates controlled and appears to be out of AFib currently. Continue to work on rate control as opposed to rhythm control and anticoagulation. Systolic congestive heart failure chronic. Patient with poor ejection fraction. Continue with beta-roz fluid and electrolyte management. He is also on an LIANA inhibitor. Appears to be if anything a little bit volume dry at this point but we will continue to encourage oral hydration. Constipation. Patient constipated we will provide a enema today and start on MiraLax. Urinary retention BPH. Start Flomax. Work on constipation. Zhu catheter in and out as needed for postvoid residual greater than 400. Insulin dependent diabetes. Patient is receiving long-acting and short-acting insulin blood sugars are well controlled. Coronary artery disease chronic and stable. Continue with current home medications. Rheumatoid arthritis. Patient on Humira he is chronically immune suppressed. Antiphospholipid antibody syndrome. Cerebrovascular accident with late effects with aphasia and right-sided hemiparesis. Swallow studies been initiated here in the hospital. Hopefully home tomorrow with home health. After bowel regimen and improved urination output transitioned to oral antibiotics at home. Time-Based Coding :: [TOTAL MINUTES] spent with patient and on the chart (including review of chart, obtaining history, exam, reviewing outside data, placing orders, documenting exam and treatment plan, and counseling patient) on [DATE]. Quality VTE Deep Vein Thrombosis/Pulmonary Embolism Present on Admission: No IH PROFEE Oyster Shipper Document charge(s): Yes Charge Codes Subsequent inpatient/observation care: [id number]
[2025-09-08] MEDS: SENNOSIDES 8.6 MG TABLET 17.2 MG PO (12:16)
[2025-09-08] MEDS: FLEETS ENEMA 1 EACH PR (14:53)
--- NOTE | 2025-09-08 15:33 | CM.DPNOTE ---
DCP note DIRECTOR OF CORPORATE RESPONSIBILITY reviewed EMR per Tete note, anticipate dc tomorrow pending BM/if urinary retention improves. DIRECTOR OF CORPORATE RESPONSIBILITY updated Adilene COLÓN. P: anticipate home tomorrow with COLETTE MORALEZ and Adilene COLÓN pending BM/urinary concerns. Follow closely for DCP Coordination СВЕТЛАНА Sim
[2025-09-08] MEDS: METOPROLOL TARTRATE 5 MG/5 ML INJ IV (15:42)
--- NOTE | 2025-09-08 20:17 | DI.CT.S_ITS ---
PROCEDURE: CT ANGIO HEAD AND NECK
[2025-09-08 20:29] LABS: Allen Test for ABG Passed? Positive; Blood Gas Collection Site Left Radial; Delivery System Cannula; HCO3 ABG 20 mmol/L (23-27); Oxygen Saturation ABG 92 % (95-100); PCO2 ABG 30.1 mmHg (35-45); PO2 ABG 62 mmHg (80-100); TCO2 ABG 19 mmol/L (23-27)
[2025-09-08 20:43] LABS: Add Manual Diff / Slide Review NO; Hematocrit 31.2 % (41-53); Hemoglobin 10.6 g/dL (13.5-17.5); Lymphocytes Absolute Auto 1100 /uL (1100-4500); Mean Corpuscular HGB Conc 34.2 % (30-36); Mean Corpuscular Hemoglobin 32.0 PG (26-34); Mean Corpuscular Volume 93.6 fL (80-100); Platelet Count 219 X10^3/uL (150-400)
[2025-09-08 20:57] LABS: Alanine Aminotransferase 114 IU/L (<50); Albumin 2.8 g/dL (3.5-5.0); Albumin Globulin Ratio 0.8 (1.0-2.8); Alkaline Phosphatase 96 U/L (38-126); Blood Urea Nitrogen 24 mg/dL (9-20); Calcium 8.2 mg/dL (8.4-10.2); Carbon Dioxide 21 mmol/L (22-32); Chloride 102 mmol/L (98-107); Estimated Glomerular Filt Rate > 60 mL/min (>60); Globulin 3.6 g/dL (1.7-4.1); Glucose 162 mg/dL (70-99); HEMOLYSIS < 15 (0-50); Lactate (Lactic Acid) 1.1 mmol/L (0.7-2.1); Magnesium 1.7 mg/dL (1.6-2.3); Potassium 4.5 mmol/L (3.4-5.1); Sodium 128 mmol/L (137-145); Total Protein 6.4 g/dL (6.3-8.2)
--- NOTE | 2025-09-08 21:03 | DI.RAD.S_ITS ---
1PROCEDURE: XR CHEST 1V
[2025-09-09] VITALS (7 sets, daily range): BP systolic 106–118; BP diastolic 64–70; PULSE 81–97; RESP 16–19; TEMP 36–36.7; O2SAT 3–100
[2025-09-09 04:57] LABS: Add Manual Diff / Slide Review NO; Hematocrit 30.8 % (41-53); Hemoglobin 10.5 g/dL (13.5-17.5); Lymphocytes Absolute Auto 1000 /uL (1100-4500); Mean Corpuscular HGB Conc 34.2 % (30-36); Mean Corpuscular Hemoglobin 32.1 PG (26-34); Mean Corpuscular Volume 93.8 fL (80-100); Platelet Count 228 X10^3/uL (150-400)
[2025-09-09 05:09] LABS: Alanine Aminotransferase 94 IU/L (<50); Albumin 2.6 g/dL (3.5-5.0); Albumin Globulin Ratio 0.7 (1.0-2.8); Alkaline Phosphatase 94 U/L (38-126); Blood Urea Nitrogen 24 mg/dL (9-20); Calcium 8.2 mg/dL (8.4-10.2); Carbon Dioxide 20 mmol/L (22-32); Chloride 102 mmol/L (98-107); Estimated Glomerular Filt Rate > 60 mL/min (>60); Globulin 3.5 g/dL (1.7-4.1); Glucose 152 mg/dL (70-99); HEMOLYSIS < 15 (0-50); Potassium 4.3 mmol/L (3.4-5.1); Sodium 129 mmol/L (137-145); Total Protein 6.1 g/dL (6.3-8.2)
--- NOTE | 2025-09-09 05:47 | PC.NURSE ---
At approx. 0800 this RN received a call from PCT to attend to patient with reported altered mental status. This RN arrived to find VICKI Houston in the room with family and whiskey regauger. Respiratory contacted and arrived at bedside. Patient rousable to light stimulation, PERRLA, initial VS: BP 111/61 MAP 71 SPO2 99% on 2 L NC GLU 170. Prior hx of L sided stroke w/ significant residual right sided deficits. Patient's reports decreased level of consciousness, below baseline. Patient unable to follow commands to complete NIHSS. Edema (1-2+) noted on RUE and RLE w/ cap refill @ 2 sec, abnormal per pt family. Patient unable to breathe deeply enough to assess posterior lung sounds. Medication reviewed- nothing given recently to reverse. Patient had been straight cath'd near the end of the prior shift, had been given an enema as well. Contacted precision structural metal fitter MD Trejo for orders, received orders for STAT CBC CMP Lactate Mag, ABG, CTA, and Chest XR. 10 minute delay on arrival to imagine d/t full trauma arriving at the same time. Patient returning to baseline per spouse when returning to floor from imaging. Discussed plan of care with patient and family throughout event. At approx. 0200 this RN was notified of patient retaining urine again, around 400 mLs, with increasing agitation and discomfort. Patient tolerated catheterization.
[2025-09-09] MEDS: DABIGATRAN 75 MG CAPSULE 150 MG PO ×2 (08:31→21:45)
[2025-09-09] MEDS: PANTOPRAZOLE DR 40 MG TABLET PO (08:31)
[2025-09-09] MEDS: SERTRALINE 50 MG TABLET 200 MG PO (08:31)
[2025-09-09] MEDS: TAMSULOSIN 0.4 MG CAPSULE PO (08:32)
[2025-09-09] MEDS: FOLIC ACID 1 MG TABLET 3 MG PO (08:32)
[2025-09-09] MEDS: SENNOSIDES 8.6 MG TABLET 17.2 MG PO (08:32)
[2025-09-09] MEDS: CHOLECALCIFEROL (VITAMIN D3) 5,000 UNIT TABLET 5000 UNIT PO (08:32)
[2025-09-09] MEDS: INSULIN GLARGINE 100 UNIT/ML 3ML PEN 18 UNIT SUBCUT (08:37)
--- NOTE | 2025-09-09 08:39 | PM.PN.IH.1 ---
Subjective Subjective Date Patient Seen: 09/09/25 Time Patient Seen: 08:54 Interval history: Patient seen and evaluated this morning at bedside. Discussed care with night nurse. Patient had an event around shift change where he became unresponsive. This lasted for approximately 15-20 minutes. He was a on arousable. Had change in respiration. This lasted for a number of minutes. The on-call physician was called who ordered additional laboratory testing and imaging. His was concerned that it symptoms similar to his previous stroke. There there was no shaking or tremors. He was sent down for CT imaging. By the time he came back up he was more back to himself. He also had difficulty voiding yesterday required in and out catheter. By the evening still had urinary retention which required insertion of Zhu catheter. He has mild hypoxia as well requiring nasal cannula oxygen. Chest x-ray shows increased pleural fluid. Exam Vital Signs (past 8 hours): - 09/09/25 01:00 09/09/25 05:00 Temperature 97.6 F 98.0 F Pulse Rate 96 H 92 H Respiratory Rate 19 18 Blood Pressure 118/65 106/66 Pulse Oximetry 96 98 Oxygen Flow Rate 4 4 Fraction of Inspired Oxygen 28 SaO2/FiO2 Ratio 328 Oxygen Delivery Method Nasal Cannula Oxygen Flow Rate 4 Narrative Exam Narrative: Gen.: Alert arousable but sleepy HEENT: Pupils equal round and reactive or mucosa is moist Cardio: S1-S2 systolic murmur irregular rhythm Respiratory: Crackles at lung bases. Mild increased work of breathing Abdomen: Soft nontender no rebound or guarding no liver spleen enlargement no appreciable hernias Extremities: Right-sided hemiparesis Neurologic: Aphasia Objective Labs 09/09/25 04:20 09/09/25 04:20 Labs: Laboratory Results - last 24 hr 09/08/25 09/08/25 09/08/25 12:16 16:58 19:52 WBC RBC Hgb Hct MCV MCH MCHC RDW Plt Count Neut % (Auto) Lymph % (Auto) [place] % (Auto) Eos % (Auto) Baso % (Auto) Neut # (Auto) Lymph # (Auto) [place] # (Auto) Eos # (Auto) Baso # (Auto) ABG Sample Site ABG pH ABG pCO2 ABG pO2 ABG HCO3 ABG Total CO2 ABG O2 Saturation ABG Base Excess José Test O2 Delivery Device FiO2 % Sodium Potassium Chloride Carbon Dioxide BUN Creatinine Estimated GFR BUN/Creatinine Ratio Glucose POC Whole Bld Glucose 174 H 175 H 170 H Lactate Calcium Magnesium Total Bilirubin AST ALT Alkaline Phosphatase Total Protein Albumin Globulin Albumin/Globulin Ratio 09/08/25 09/08/25 09/09/25 20:24 20:33 04:20 WBC 12.2 H 12.6 H RBC 3.33 L 3.28 L Hgb 10.6 L 10.5 L Hct 31.2 L 30.8 L MCV 93.6 93.8 MCH 32.0 32.1 MCHC 34.2 34.2 RDW 16.4 H 17.8 H Plt Count 219 228 Neut % (Auto) 80.4 H 82.2 H Lymph % (Auto) 9.3 L 8.3 L [place] % (Auto) 9.7 8.6 Eos % (Auto) 0.3 L 0.3 L Baso % (Auto) 0.3 0.6 Neut # (Auto) 9800 H 31083 H Lymph # (Auto) 1100 1000 L [place] # (Auto) 1200 H 1100 H Eos # (Auto) 0 0 Baso # (Auto) 0 100 ABG Sample Site Left radial ABG pH 7.43 ABG pCO2 30.1 L ABG pO2 62 L ABG HCO3 20 L ABG Total CO2 19 L ABG O2 Saturation 92 L ABG Base Excess -3.8 L José Test Positive O2 Delivery Device Cannula FiO2 % 35.0 % Sodium 128 L 129 L Potassium 4.5 4.3 Chloride 102 102 Carbon Dioxide 21 L 20 L BUN 24 H 24 H Creatinine 0.86 0.92 Estimated GFR > 60 > 60 BUN/Creatinine Ratio 27.9 H 26.1 H Glucose 162 H 152 H POC Whole Bld Glucose Lactate 1.1 Calcium 8.2 L 8.2 L Magnesium 1.7 Total Bilirubin 0.9 0.9 AST 150 H 124 H ALT 114 H 94 H Alkaline Phosphatase 96 94 Total Protein 6.4 6.1 L Albumin 2.8 L 2.6 L Globulin 3.6 3.5 Albumin/Globulin Ratio 0.8 L 0.7 L 09/09/25 08:02 WBC RBC Hgb Hct MCV MCH MCHC RDW Plt Count Neut % (Auto) Lymph % (Auto) [place] % (Auto) Eos % (Auto) Baso % (Auto) Neut # (Auto) Lymph # (Auto) [place] # (Auto) Eos # (Auto) Baso # (Auto) ABG Sample Site ABG pH ABG pCO2 ABG pO2 ABG HCO3 ABG Total CO2 ABG O2 Saturation ABG Base Excess José Test O2 Delivery Device FiO2 % Sodium Potassium Chloride Carbon Dioxide BUN Creatinine Estimated GFR BUN/Creatinine Ratio Glucose POC Whole Bld Glucose 171 H Lactate Calcium Magnesium Total Bilirubin AST ALT Alkaline Phosphatase Total Protein Albumin Globulin Albumin/Globulin Ratio [facility] Medical History Acute urinary retention History of CVA (cerebrovascular accident) Myocardial infarct, 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 (08/09/11) 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/13) Other and unspecified hyperlipidemia (08/09/11) DVT (deep venous thrombosis) CHF (congestive heart failure) Atrial fibrillation ILD (interstitial lung disease) Hyperglycemia Controlled insulin dependent diabetes mellitus CVA (cerebral vascular accident) Facial laceration Weakness Acute hyponatremia Rheumatoid arthritis History of stroke with residual deficit Diabetes mellitus Hyperlipidemia Antiphospholipid antibody syndrome Pacemaker Myocardial infarction Systolic heart failure DVT (deep venous thrombosis) CAD (coronary artery disease) Cardiac arrhythmia Chronic systolic congestive heart failure (09/01/15) Hyperlipidemia (09/01/15) Essential hypertension (09/01/15) Coronary artery disease involving [place] coronary artery of [place] heart without angina pectoris (09/01/15) Cerebrovascular accident (CVA) involving left middle cerebral artery territory (09/01/15) Chronic atrial flutter (09/01/15) Hemiparesis affecting dominant side as late effect of cerebrovascular accident (01/27/15) Aphasia following cerebrovascular disease (01/27/15) Stenosis of left carotid artery (12/22/13) Type 2 diabetes mellitus Surgical History AICD (automatic cardioverter/defibrillator) present History of angioplasty Presence of cardiac pacemaker Social History marital status: household members: spouse and caregiver Smoking Status: Never smoker alcohol intake: never substance use type: does not use Assessment & Plan Assessment and plan (1) Sepsis: Qualifiers: Sepsis acute organ dysfunction status: unspecified Sepsis type: sepsis due to unspecified organism Qualified Code(s): A41.9 - Sepsis, unspecified organism Status: Acute (2) Acute UTI: Status: Acute Plan Altered level of consciousness. Patient had a neurological event last evening with altered level of consciousness CT angiogram and CTA shows old cerebral injury infarcts. With old occlusive disease. Without any significant new findings. Presumed mental status changes was due to a neurological event. Patient is unable to do an MRI because of his pacemaker. He is on anticoagulation at this point. Respiratory distress requiring oxygen. Due to acute exacerbation of congestive heart failure. Chest x-ray shows increasing signs of pulmonary congestion with the mild new pleural effusion since admission to the hospital. Sepsis improved. Due to urinary tract source urinary culture shows Pseudomonas. Continue with the antibiotics white blood cell count slightly elevated today. Afebrile. Blood pressure still soft. Acute urinary retention with urinary tract infection. Catheter was removed but had to be reinserted. As he was unable to urinate. Atrial fibrillation with RVR. Intermittently going in and out of AFib. Beta-roz dose has been increased. Heart rates typically has not been significantly high with increased dose of beta-blockade. We will continue to monitor and continue with anticoagulation. Acute Systolic congestive heart failure on chronic. Patient now requiring oxygen. Patient with a history of significantly low ejection fraction with heart failure. He now has pleural effusions. Start IV Lasix today 40 mg. Monitor closely electrolyte replacement. Constipation. Patient constipated we will provide a enema today start Senokot. Urinary retention BPH. Start Flomax. Work on constipation. Zhu catheter placed Insulin dependent diabetes. Patient is receiving long-acting and short-acting insulin blood sugars are well controlled. Coronary artery disease chronic and stable. Continue with current home medications. Rheumatoid arthritis. Patient on Humira he is chronically immune suppressed. Antiphospholipid antibody syndrome. Cerebrovascular accident with late effects with aphasia and right-sided hemiparesis. Swallow studies been initiated here in the hospital. Disposition and plan. Continues to have significant comorbid health conditions impacting his hospital stay. Now with a alteration of neurological compromise. Probably due to his cerebrovascular injury although hard to know because of unable to do MRI. He is also having mild respiratory distress due to exacerbation of underlying heart failure. On top of his significant sepsis now urinary retention. Had a goals of care discussion with today. He is a do not intubate do not resuscitate that was confirmed. Due to his continued illness decreased nutrition discussed feeding tubes and long-term care plans with the patient and family. Again discussed with them about goals of care. They are leaning more towards comfort care than quantity of care. Will have a family care conference this afternoon. Time-Based Coding :: [TOTAL MINUTES] spent with patient and on the chart (including review of chart, obtaining history, exam, reviewing outside data, placing orders, documenting exam and treatment plan, and counseling patient) on [DATE]. Quality VTE Deep Vein Thrombosis/Pulmonary Embolism Present on Admission: No IH PROFEE Automatic Clipper Document charge(s): Yes Charge Codes Subsequent inpatient/observation care: [id number]
[2025-09-09] MEDS: INSULIN LISPRO 100 UNIT/ML 3ML VIAL SUBCUT ×3 (08:40→17:53)
--- NOTE | 2025-09-09 10:27 | DIET.PN1 ---
Dietary Progress Note Assessment: Pt receiving oral protein supplementation with all meals. Per review of providers progress note, potential comfort care, goals of care conversations today potentially. BG most recently in 180s, 170s, not on carb consistent diet r/t providing diet liberalization to help PO intakes. Will continue protein supplementation and f/u dependent on GOC. Ht: 172.72 cm Wt: 75.75 kg BMI: 25.4 Last BM: 09/09/25 (09/09/25 01:41) MNA: 8 Ramsey Score: 15 Diet: 09/07/25 Dinner Dysphagia Diet Diet Modifications: 1:1 supervision Food Texture: Level 6-Soft & Bite-sized Liquid Consistency: Level 0 - Thin Nutrition Percent Meal Consumed 25% 09/08/25 18:00 Percent Meal Consumed 45 09/07/25 18:00 Labs: RBC 3.28 X10^6/uL (4.5-5.9) L 09/09/25 04:20 Hgb 10.5 g/dL (13.5-17.5) L 09/09/25 04:20 Hct 30.8 % (41-53) L 09/09/25 04:20 Creatinine 0.92 mg/dL (0.66-1.25) 09/09/25 04:20 Lactate 1.1 mmol/L (0.7-2.1) 09/08/25 20:33 NT-Pro-B Natriuret Pep 877 pg/mL (<125) H 09/04/25 03:12 Electronically Signed by: Alondra Bui 09/09/25 10:27 Clinical Dietitian [address] [id number]
--- NOTE | 2025-09-09 10:39 | CM.DPC ---
Per Progress note, Dr. Epstein will have a family conference with the family this afternoon to discuss Comfort Care.
[2025-09-09] MEDS: CEFEPIME 2 GM in SODIUM CHLORIDE 0.9% 100 ML IV ×2 (10:53→23:25)
[2025-09-09] MEDS: FUROSEMIDE 40 MG/4 ML VIAL IV (12:15)
--- NOTE | 2025-09-09 15:33 | PC.NURSE ---
Patient is on 3l of o2, his sats this morning were 76% but his hands were cold and he was not taking deep breaths in/out. As soon as he did this his sats went up to 95%. He was monentarily up to 100% on 4L, so he was decreased back down to 3L and has maintained at 95% He has been repositioned q 2 hours and his barbosa is putting out large amounts of yellow urine as patient had 40mg of iv lasixs.
[2025-09-09] MEDS: ATORVASTATIN 20 MG TABLET PO (22:21)
[2025-09-10] VITALS (10 sets, daily range): BP systolic 102–118; BP diastolic 60–77; PULSE 68–76; RESP 15–24; TEMP 35.9–36.4; O2SAT 93–100
[2025-09-10] MEDS: FUROSEMIDE 40 MG/4 ML VIAL IV (00:02)
[2025-09-10 05:38] LABS: Add Manual Diff / Slide Review NO; Hematocrit 33.1 % (41-53); Hemoglobin 11.4 g/dL (13.5-17.5); Lymphocytes Absolute Auto 1300 /uL (1100-4500); Mean Corpuscular HGB Conc 34.3 % (30-36); Mean Corpuscular Hemoglobin 31.8 PG (26-34); Mean Corpuscular Volume 92.7 fL (80-100); Platelet Count 247 X10^3/uL (150-400)
[2025-09-10 05:48] LABS: Alanine Aminotransferase 127 IU/L (<50); Albumin 2.8 g/dL (3.5-5.0); Albumin Globulin Ratio 0.7 (1.0-2.8); Alkaline Phosphatase 96 U/L (38-126); Blood Urea Nitrogen 28 mg/dL (9-20); Calcium 8.6 mg/dL (8.4-10.2); Carbon Dioxide 25 mmol/L (22-32); Chloride 98 mmol/L (98-107); Estimated Glomerular Filt Rate > 60 mL/min (>60); Globulin 3.8 g/dL (1.7-4.1); Glucose 175 mg/dL (70-99); HEMOLYSIS < 15 (0-50); Potassium 3.5 mmol/L (3.4-5.1); Sodium 131 mmol/L (137-145); Total Protein 6.6 g/dL (6.3-8.2)
[2025-09-10] MEDS: INSULIN GLARGINE 100 UNIT/ML 3ML PEN 18 UNIT SUBCUT (08:31)
[2025-09-10] MEDS: INSULIN LISPRO 100 UNIT/ML 3ML VIAL SUBCUT ×3 (08:31→20:32)
--- NOTE | 2025-09-10 10:03 | PM.PN.IH.1 ---
Subjective Subjective Date Patient Seen: 09/10/25 Time Patient Seen: 15:42 Interval history: Patient seen and evaluated. Patient a little bit more awake this afternoon alert. Not really taking anything orally. Not wanting to take medication. is coaxing him with applesauce has had speech evaluation. Blood pressures been a little bit soft throughout the day. Respiratory rate is improved. Received some IV Lasix yesterday with good urinary output. Heart rates well controlled. After long discussion with family and family care conference. Patient's family at with patient's past history of elected to improve comfort measures with ongoing medication support. They have elected the patient to go home with hospice. Knowing that he has multiple comorbid illnesses. Exam Vital Signs (past 8 hours): - 09/10/25 04:00 09/10/25 08:00 Temperature 97.2 F L 97.3 F L Pulse Rate 74 68 Respiratory Rate 18 16 Blood Pressure 113/77 118/71 Pulse Oximetry 99 93 Oxygen Flow Rate 4 4 Fraction of Inspired Oxygen 28 SaO2/FiO2 Ratio 328 Oxygen Delivery Method Nasal Cannula Oxygen Flow Rate 4 Narrative Exam Narrative: Gen.: Alert awake HEENT: Pupils equal round and reactive or mucosa is moist Cardio: S1-S2 slight systolic murmur irregular Respiratory: Decreased breath sounds at lung bases with crackles normal respiratory effort Abdomen: Soft nondistended Extremities: Right-sided hemiparesis which his stents. Neurologic: Aphasic Objective Labs 09/10/25 04:30 09/10/25 04:30 Labs: Laboratory Results - last 24 hr 09/09/25 09/09/25 09/09/25 11:36 15:16 17:37 WBC RBC Hgb Hct MCV MCH MCHC RDW Plt Count Neut % (Auto) Lymph % (Auto) [place] % (Auto) Eos % (Auto) Baso % (Auto) Neut # (Auto) Lymph # (Auto) [place] # (Auto) Eos # (Auto) Baso # (Auto) Sodium Potassium Chloride Carbon Dioxide BUN Creatinine Estimated GFR BUN/Creatinine Ratio Glucose POC Whole Bld Glucose 178 H 161 H 162 H Calcium Total Bilirubin AST ALT Alkaline Phosphatase Total Protein Albumin Globulin Albumin/Globulin Ratio 09/09/25 09/10/25 09/10/25 22:05 04:30 07:49 WBC 13.6 H RBC 3.57 L Hgb 11.4 L Hct 33.1 L MCV 92.7 MCH 31.8 MCHC 34.3 RDW 17.3 H Plt Count 247 Neut % (Auto) 83.0 H Lymph % (Auto) 9.4 L [place] % (Auto) 6.7 Eos % (Auto) 0.5 L Baso % (Auto) 0.4 Neut # (Auto) 51666 H Lymph # (Auto) 1300 [place] # (Auto) 900 Eos # (Auto) 100 Baso # (Auto) 0 Sodium 131 L Potassium 3.5 Chloride 98 Carbon Dioxide 25 BUN 28 H Creatinine 1.03 Estimated GFR > 60 BUN/Creatinine Ratio 27.2 H Glucose 175 H POC Whole Bld Glucose 158 H 162 H Calcium 8.6 Total Bilirubin 1.1 AST 194 H ALT 127 H Alkaline Phosphatase 96 Total Protein 6.6 Albumin 2.8 L Globulin 3.8 Albumin/Globulin Ratio 0.7 L PFSH Medical History Acute urinary retention History of CVA (cerebrovascular accident) Myocardial infarct, 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 (08/09/11) 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/13) Other and unspecified hyperlipidemia (08/09/11) DVT (deep venous thrombosis) CHF (congestive heart failure) Atrial fibrillation ILD (interstitial lung disease) Hyperglycemia Controlled insulin dependent diabetes mellitus CVA (cerebral vascular accident) Facial laceration Weakness Acute hyponatremia Rheumatoid arthritis History of stroke with residual deficit Diabetes mellitus Hyperlipidemia Antiphospholipid antibody syndrome Pacemaker Myocardial infarction Systolic heart failure DVT (deep venous thrombosis) CAD (coronary artery disease) Cardiac arrhythmia Chronic systolic congestive heart failure (09/01/15) Hyperlipidemia (09/01/15) Essential hypertension (09/01/15) Coronary artery disease involving [place] coronary artery of [place] heart without angina pectoris (09/01/15) Cerebrovascular accident (CVA) involving left middle cerebral artery territory (09/01/15) Chronic atrial flutter (09/01/15) Hemiparesis affecting dominant side as late effect of cerebrovascular accident (01/27/15) Aphasia following cerebrovascular disease (01/27/15) Stenosis of left carotid artery (12/22/13) Type 2 diabetes mellitus Surgical History AICD (automatic cardioverter/defibrillator) present History of angioplasty Presence of cardiac pacemaker Social History marital status: household members: spouse and caregiver Smoking Status: Never smoker alcohol intake: never substance use type: does not use Assessment & Plan Assessment and plan (1) Sepsis: Qualifiers: Sepsis acute organ dysfunction status: unspecified Sepsis type: sepsis due to unspecified organism Qualified Code(s): A41.9 - Sepsis, unspecified organism Status: Acute Plan Altered level of consciousness. Improved Acute respiratory distress failure requiring oxygen improved Sepsis improved. Acute urinary retention with urinary tract infection. Atrial fibrillation with RVR. Acute Systolic congestive heart failure on chronic. Constipation. Insulin dependent diabetes. Coronary artery disease chronic and stable. Rheumatoid arthritis. Antiphospholipid antibody syndrome. Cerebrovascular accident with late effects with aphasia and right-sided hemiparesis. Disposition and plan. Patient's level of consciousness has improved he is arousable. Questionable TIA versus CVA. Although not found on new neuroimaging previous strokes seen. Received diuretics for heart failure. IV Lasix this was converted to oral. Still requiring a little bit of oxygen today. Blood pressures been a little bit soft. Had good diuresis. He is limiting fluids orally. Because of difficulty with swallowing. Urinary retention Zhu catheter in place Flomax started. Atrial fibrillation heart rates been more stable without significant rapid response. With adjustment of his Coreg. Blood sugars have been well controlled. Urinary tract infection switched from IV antibiotics to oral antibiotics with Omnicef today. Disposition and plan. After discussion and family care conference. Patient and family requested home with hospice. Due to his multiple comorbid health conditions with recent infection increasing with weakness difficulty with swallowing patient's family does not want patient to have a feeding tube. Patient has been a long-term DNR DNI. With multiple frequent emergency room visits and increasing weakness. Want to maximize comfort and have patient go home with hospice. Time-Based Coding :: [TOTAL MINUTES] spent with patient and on the chart (including review of chart, obtaining history, exam, reviewing outside data, placing orders, documenting exam and treatment plan, and counseling patient) on [DATE]. Quality VTE Deep Vein Thrombosis/Pulmonary Embolism Present on Admission: No [facility]H PROFEE Licensed Prosthetist/Orthotist Document charge(s): Yes Charge Codes Subsequent inpatient/observation care: [id number]
[2025-09-10] MEDS: DABIGATRAN 75 MG CAPSULE 150 MG PO ×2 (10:55→20:24)
[2025-09-10] MEDS: SODIUM CHLORIDE 0.9% FLUSH 10 ML IV ×2 (10:56→20:25)
--- NOTE | 2025-09-10 13:52 | CM.DPC ---
CM spoke with patient , Felicity, at [facility]. Felicity is POA and has requested Hospice for her . Patient's profile was sent to [facility]. Taryn with Hospice is aware that an MD order is pending for Home with Hospice. CM to follow up in AM.
[2025-09-10] MEDS: CEFDINIR 300 MG CAPSULE PO (20:24)
[2025-09-11] VITALS (10 sets, daily range): BP systolic 93–130; BP diastolic 60–71; PULSE 70–91; RESP 15–22; TEMP 35.7–36.2; O2SAT 95–99
[2025-09-11 05:24] LABS: Add Manual Diff / Slide Review NO; Hematocrit 29.0 % (41-53); Hemoglobin 10.3 g/dL (13.5-17.5); Lymphocytes Absolute Auto 1100 /uL (1100-4500); Mean Corpuscular HGB Conc 35.4 % (30-36); Mean Corpuscular Hemoglobin 32.6 PG (26-34); Mean Corpuscular Volume 92.1 fL (80-100); Platelet Count 245 X10^3/uL (150-400)
[2025-09-11 05:35] LABS: Alanine Aminotransferase 198 IU/L (<50); Albumin 2.6 g/dL (3.5-5.0); Albumin Globulin Ratio 0.7 (1.0-2.8); Alkaline Phosphatase 98 U/L (38-126); Blood Urea Nitrogen 29 mg/dL (9-20); Calcium 8.6 mg/dL (8.4-10.2); Carbon Dioxide 29 mmol/L (22-32); Chloride 99 mmol/L (98-107); Estimated Glomerular Filt Rate > 60 mL/min (>60); Globulin 3.8 g/dL (1.7-4.1); Glucose 130 mg/dL (70-99); HEMOLYSIS < 15 (0-50); Potassium 3.5 mmol/L (3.4-5.1); Sodium 132 mmol/L (137-145); Total Protein 6.4 g/dL (6.3-8.2)
[2025-09-11] MEDS: PANTOPRAZOLE DR 40 MG TABLET PO (07:03)
--- NOTE | 2025-09-11 07:49 | PM.PN.IH.1 ---
Subjective Subjective Date Patient Seen: 09/11/25 Time Patient Seen: 07:49 Interval history: Patient seen and evaluated. Family at bedside. Last night was a good night. He drinks some water. Still pocketing some food not swallowing well. Made some adjustments to his medication. To help a it be more swallow friendly. He is awake interacting this morning. Aphasic. Still not moving the right side. No bowel movement he had good urine output. Blood sugars look okay today. White blood cell count stable. Hemoglobin hematocrit is also stable. Liver enzymes mildly elevated. Exam Vital Signs (past 8 hours): - 09/11/25 00:00 09/11/25 04:00 Temperature 97.1 F L Pulse Rate 72 74 Respiratory Rate 20 22 Blood Pressure 110/63 Pulse Oximetry 96 97 Oxygen Flow Rate 4 4 Fraction of Inspired Oxygen 28 SaO2/FiO2 Ratio 328 Oxygen Delivery Method Nasal Cannula Oxygen Flow Rate 4 Narrative Exam Narrative: Gen.: Alert arousable. Aphasic HEENT: Pupils equal round and reactive or mucosa is moist Cardio: Systolic murmur irregular rhythm Respiratory: Decreased breath sounds at bases Abdomen: Soft nontender no rebound or guarding no liver spleen enlargement no appreciable hernias Extremities: Right side weakness Neurologic: Grossly intact. Objective Labs 09/11/25 04:50 09/11/25 04:50 Labs: Laboratory Results - last 24 hr 09/10/25 09/10/25 09/10/25 07:49 12:27 16:59 WBC RBC Hgb Hct MCV MCH MCHC RDW Plt Count Neut % (Auto) Lymph % (Auto) [place] % (Auto) Eos % (Auto) Baso % (Auto) Neut # (Auto) Lymph # (Auto) [place] # (Auto) Eos # (Auto) Baso # (Auto) Sodium Potassium Chloride Carbon Dioxide BUN Creatinine Estimated GFR BUN/Creatinine Ratio Glucose POC Whole Bld Glucose 162 H 142 H 150 H Calcium Total Bilirubin AST ALT Alkaline Phosphatase Total Protein Albumin Globulin Albumin/Globulin Ratio 09/10/25 09/11/25 09/11/25 20:28 04:50 07:34 WBC 10.6 RBC 3.15 L Hgb 10.3 L Hct 29.0 L MCV 92.1 MCH 32.6 MCHC 35.4 RDW 17.4 H Plt Count 245 Neut % (Auto) 78.7 H Lymph % (Auto) 10.5 L [place] % (Auto) 9.0 Eos % (Auto) 1.1 L Baso % (Auto) 0.7 Neut # (Auto) 8400 H Lymph # (Auto) 1100 [place] # (Auto) 1000 H Eos # (Auto) 100 Baso # (Auto) 100 Sodium 132 L Potassium 3.5 Chloride 99 Carbon Dioxide 29 BUN 29 H Creatinine 0.93 Estimated GFR > 60 BUN/Creatinine Ratio 31.2 H Glucose 130 H POC Whole Bld Glucose 244 H 130 H D Calcium 8.6 Total Bilirubin 0.8 AST 378 H ALT 198 H Alkaline Phosphatase 98 Total Protein 6.4 Albumin 2.6 L Globulin 3.8 Albumin/Globulin Ratio 0.7 L PFSH Medical History Acute urinary retention History of CVA (cerebrovascular accident) Myocardial infarct, 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 (08/09/11) 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/13) Other and unspecified hyperlipidemia (08/09/11) DVT (deep venous thrombosis) CHF (congestive heart failure) Atrial fibrillation ILD (interstitial lung disease) Hyperglycemia Controlled insulin dependent diabetes mellitus CVA (cerebral vascular accident) Facial laceration Weakness Acute hyponatremia Rheumatoid arthritis History of stroke with residual deficit Diabetes mellitus Hyperlipidemia Antiphospholipid antibody syndrome Pacemaker Myocardial infarction Systolic heart failure DVT (deep venous thrombosis) CAD (coronary artery disease) Cardiac arrhythmia Chronic systolic congestive heart failure (09/01/15) Hyperlipidemia (09/01/15) Essential hypertension (09/01/15) Coronary artery disease involving [place] coronary artery of [place] heart without angina pectoris (09/01/15) Cerebrovascular accident (CVA) involving left middle cerebral artery territory (09/01/15) Chronic atrial flutter (09/01/15) Hemiparesis affecting dominant side as late effect of cerebrovascular accident (01/27/15) Aphasia following cerebrovascular disease (01/27/15) Stenosis of left carotid artery (12/22/13) Type 2 diabetes mellitus Surgical History AICD (automatic cardioverter/defibrillator) present History of angioplasty Presence of cardiac pacemaker Social History marital status: household members: spouse and caregiver Smoking Status: Never smoker alcohol intake: never substance use type: does not use Assessment & Plan Assessment and plan (1) Sepsis: Qualifiers: Sepsis acute organ dysfunction status: unspecified Sepsis type: sepsis due to unspecified organism Qualified Code(s): A41.9 - Sepsis, unspecified organism Status: Acute Plan Sepsis Acute respiratory failure Acute systolic congestive heart failure Atrial fib RVR Mental status changes Insulin-dependent diabetes Coronary artery disease Antiphospholipid antibody syndrome Rheumatoid arthritis Cerebrovascular accident with right-side hemiparesis and aphasia Plan today continue to work on eating. Family does not want a feeding tube. Okay with medications want to maximize comfort. Home with hospice. Hospital bed. Transitioned to oral antibiotics. Oral medication blood patient stable. Liver enzymes mildly elevated. Zhu catheter still in place due to urinary tract infection and urinary retention will need to go home with your urine catheter in place. Patient has a no code. We will continue medications work on eating and antibiotics. Anticipate discharge home with hospice. Time-Based Coding :: [TOTAL MINUTES] spent with patient and on the chart (including review of chart, obtaining history, exam, reviewing outside data, placing orders, documenting exam and treatment plan, and counseling patient) on [DATE]. Quality VTE Deep Vein Thrombosis/Pulmonary Embolism Present on Admission: No PROFEE Clinical Trials Nurse Document charge(s): Yes Charge Codes Subsequent inpatient/observation care: [id number]
--- NOTE | 2025-09-11 08:15 | CM.DPC ---
CM spoke with [facility] . They are aware of the Plan of Care to proceed to discharge Home with Hospice, hospital bed and oxygen.
[2025-09-11] MEDS: TAMSULOSIN 0.4 MG CAPSULE PO (08:40)
[2025-09-11] MEDS: SENNOSIDES 8.6 MG TABLET 17.2 MG PO (08:40)
[2025-09-11] MEDS: CEFDINIR 300 MG CAPSULE PO ×2 (08:41→20:40)
[2025-09-11] MEDS: INSULIN LISPRO 100 UNIT/ML 3ML VIAL SUBCUT ×5 (08:41→20:36)
[2025-09-11] MEDS: DABIGATRAN 75 MG CAPSULE 150 MG PO ×2 (08:41→20:35)
[2025-09-11] MEDS: FUROSEMIDE 40 MG TABLET PO (08:41)
[2025-09-11] MEDS: INSULIN GLARGINE 100 UNIT/ML 3ML PEN 18 UNIT SUBCUT (08:42)
--- NOTE | 2025-09-11 09:24 | CM.DPC ---
Addendum entered by Noreen Reeves RN 09/11/25 16:37: Family is in need of a Angela Lift. ADARSH left a message with [facility], [facility] . Likely be delivered Saturday. POLST needs to be completed by Dr. Epstein. CM left VM for him. stock fitterSydni, is aware of the above.. Addendum entered by Noreen Reeves RN 09/11/25 13:17: Clarification from Teena with Hospice: equipment will be delivered to patient's home sometime this afternoon. ADARSH left VM with Dr. Epstein. ADARSH requested that the POLST form to be completed as soon as possible. stock fitterSydni is aware. Original Note: ADARSH spoke with Teena with Hospice. Hospital Bed and Oxygen should be delivered Saturday or Saturday. CM to follow Saturday AM.
[2025-09-11] MEDS: SODIUM CHLORIDE 0.9% FLUSH 10 ML IV ×2 (13:10→20:40)
--- NOTE | 2025-09-11 15:25 | PC.NURSE ---
1400: Patient supplemental oxygen weaned down to room air. Patient remained above 92.
[2025-09-11] MEDS: ACETAMINOPHEN 325 MG TABLET 650 MG PO (16:21)
[2025-09-12] VITALS (10 sets, daily range): BP systolic 110–121; BP diastolic 60–73; PULSE 68–122; RESP 15–19; TEMP 35.9–36.6; O2SAT 94–98
[2025-09-12 06:20] LABS: Hemoglobin A1C% w Est Avg Glu 6.9 % (4.0-6.0)
[2025-09-12] MEDS: PANTOPRAZOLE DR 40 MG TABLET PO (06:26)
[2025-09-12] MEDS: INSULIN GLARGINE 100 UNIT/ML 3ML PEN 20 UNIT SUBCUT (08:33)
[2025-09-12] MEDS: INSULIN LISPRO 100 UNIT/ML 3ML VIAL SUBCUT ×4 (08:33→17:24)
[2025-09-12] MEDS: DABIGATRAN 75 MG CAPSULE 150 MG PO ×2 (09:24→20:14)
[2025-09-12] MEDS: CEFDINIR 300 MG CAPSULE PO ×2 (09:24→20:14)
[2025-09-12] MEDS: TAMSULOSIN 0.4 MG CAPSULE PO (09:24)
[2025-09-12] MEDS: SENNOSIDES 8.6 MG TABLET 17.2 MG PO (09:25)
[2025-09-12] MEDS: FUROSEMIDE 40 MG TABLET PO (09:25)
--- NOTE | 2025-09-12 10:05 | PM.PN.IH.1 ---
Subjective Subjective Date Patient Seen: 09/12/25 Time Patient Seen: 10:06 Interval history: Patient seen and evaluated this morning discussed with the patient's caregiver and partner. Good night last night. Still has some episodes of in and out AFib. Heart rates not significantly tachycardic. Respiratory status is stable blood pressure is a little bit low. More awake and alert yesterday. Did a little bit better with eating and taking oral medication no bowel movements yet. Zhu catheters in place. Blood sugars have been well controlled. Exam Vital Signs (past 8 hours): - 09/12/25 04:00 09/12/25 07:00 09/12/25 07:59 Temperature 96.7 F L 97.4 F L Pulse Rate 68 88 Respiratory Rate 17 18 Blood Pressure 111/73 110/63 Pulse Oximetry 96 94 95 Oxygen Delivery Method Room Air Oxygen Flow Rate 0 0 09/12/25 09:24 Temperature Pulse Rate 95 H Respiratory Rate Blood Pressure 110/63 Pulse Oximetry Oxygen Delivery Method Oxygen Flow Rate Fraction of Inspired Oxygen 28 SaO2/FiO2 Ratio 328 Oxygen Delivery Method Room Air Oxygen Flow Rate 0 Narrative Exam Narrative: Gen.: Alert responsive HEENT: Pupils round and reactive or mucosa is moist Cardio: S1-S2 systolic murmur irregular rate and rhythm Respiratory: Normal respiratory effort Abdomen: Soft nontender no rebound or guarding no liver spleen enlargement no appreciable hernias Extremities: Right hemiparesis Objective Labs 09/11/25 04:50 09/11/25 04:50 Labs: Laboratory Results - last 24 hr 09/11/25 09/11/25 09/11/25 11:39 16:52 20:16 POC Whole Bld Glucose 171 H 197 H 197 H Hemoglobin A1c 09/12/25 09/12/25 05:00 07:48 POC Whole Bld Glucose 222 H Hemoglobin A1c 6.9 H [facility] Medical History Acute urinary retention History of CVA (cerebrovascular accident) Myocardial infarct, old (08/09/11) 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/13) Other and unspecified hyperlipidemia (08/09/11) DVT (deep venous thrombosis) CHF (congestive heart failure) Atrial fibrillation ILD (interstitial lung disease) Hyperglycemia Controlled insulin dependent diabetes mellitus CVA (cerebral vascular accident) Facial laceration Weakness Acute hyponatremia Rheumatoid arthritis History of stroke with residual deficit Diabetes mellitus Hyperlipidemia Antiphospholipid antibody syndrome Pacemaker Myocardial infarction Systolic heart failure DVT (deep venous thrombosis) CAD (coronary artery disease) Cardiac arrhythmia Chronic systolic congestive heart failure (09/01/15) Hyperlipidemia (09/01/15) Essential hypertension (09/01/15) Coronary artery disease involving [place] coronary artery of [place] heart without angina pectoris (09/01/15) Cerebrovascular accident (CVA) involving left middle cerebral artery territory (09/01/15) Chronic atrial flutter (09/01/15) Hemiparesis affecting dominant side as late effect of cerebrovascular accident (01/27/15) Aphasia following cerebrovascular disease (01/27/15) Stenosis of left carotid artery (12/22/13) Type 2 diabetes mellitus Surgical History AICD (automatic cardioverter/defibrillator) present History of angioplasty Presence of cardiac pacemaker Social History marital status: household members: spouse and caregiver Smoking Status: Never smoker alcohol intake: never substance use type: does not use Assessment & Plan Assessment and plan (1) Sepsis: Qualifiers: Sepsis acute organ dysfunction status: unspecified Sepsis type: sepsis due to unspecified organism Qualified Code(s): A41.9 - Sepsis, unspecified organism Status: Acute Plan Sepsis Acute respiratory failure Acute systolic congestive heart failure Atrial fib RVR Mental status changes Insulin-dependent diabetes Coronary artery disease Antiphospholipid antibody syndrome Rheumatoid arthritis Cerebrovascular accident with right-side hemiparesis and aphasia Assessment & Plan narrative: Reviewed with and patient today. Good day yesterday still some episodes of AFib. No changes to current medication. Anticipate discharge home with hospice. Hopefully Saturday. Equipment has been delivered to the house today. Time-Based Coding :: [TOTAL MINUTES] spent with patient and on the chart (including review of chart, obtaining history, exam, reviewing outside data, placing orders, documenting exam and treatment plan, and counseling patient) on [DATE]. Quality VTE Deep Vein Thrombosis/Pulmonary Embolism Present on Admission: No IH PROFEE Director Informatics Document charge(s): Yes Charge Codes Subsequent inpatient/observation care: [id number]
[2025-09-12] MEDS: SODIUM CHLORIDE 0.9% FLUSH 10 ML IV ×2 (11:57→21:00)
--- NOTE | 2025-09-12 15:45 | CM.DPNOTE ---
DCP note [place] reviewed EMR per Ewelina at [facility], keven mendez needs aquaculture farm manager approval Saturday. f/u with Taryn at [facility] Saturday for more. anticipate home with hospice when DME delivered. SOC pending. need to cancel with Adilene COLÓN. P: eventual home with [facility] pending DME. anticipate BLS home. will arrange when DC timeline known, BLS form started and behind FS СВЕТЛАНА Sim
[2025-09-12] MEDS: BACLOFEN 10 MG TABLET PO (20:16)
[2025-09-12] MEDS: DOCUSATE 100 MG CAPSULE 200 MG PO (20:16)
[2025-09-13] VITALS: BP 111/66; PULSE 99; RESP 16; O2SAT 97
[2025-09-13 04:00] VITALS: BP 129/77; PULSE 75; RESP 16; O2SAT 95
[2025-09-13] MEDS: PANTOPRAZOLE DR 40 MG TABLET PO (06:14)
[2025-09-13] MEDS: ACETAMINOPHEN 325 MG TABLET 650 MG PO (06:27)
--- NOTE | 2025-09-13 07:55 | P.DS_ITS ---
History of Present Illness
--- NOTE | 2025-09-13 07:55 | PM.DS.IH.1 ---
History of Present Illness History of Present Illness Chief complaint: Vomiting, Decreased LOC, UTI Discharge Providers Provider Date of admission: 09/04/25 05:24 Discharge Date: 09/13/25 Primary care physician: Delfino Epstein MD Consults: 09/04/25 07:22 Consult to Pharmacy Routine Comment: contact isolation for viral gastroenteritis. Consult to Speech Therapy Evaluate & Treat Comment: Physician Instructions: Evaluate and treat 09/04/25 09:30 Consult to Discharge Planning Routine Comment: Consult to Speech Therapy Evaluate & Treat Comment: Physician Instructions: Evaluate and treat 09/07/25 15:56 Consult to Home Health Routine Comment: Reason For Exam: RN, PT, ST Discharge provider: Delfino Epstein MD Summary Hospital Course Discharge Diagnosis: Sepsis due to urinary tract infection Acute respiratory failure due to congestive heart failure Acute systolic congestive heart failure Atrial fibrillation with RVR Metabolic encephalopathy Cerebrovascular disease with late effects with right-sided hemiparesis and aphasia Insulin dependent diabetes Coronary artery disease Antiphospholipid antibody syndrome on chronic anticoagulation Rheumatoid arthritis on Humira and immune compromised Mild Malnutrition with poor p.o. intake Hospital Course: Patient with a complicated medical history of previous Cardio vascular disease as well as cerebrovascular disease with previous stroke and heart attack defibrillator and pacemaker. Patient was admitted to the hospital with sepsis due to urinary tract infection which grew out Pseudomonas which was resistant to multiple medications. He is admitted to the hospital on IV antibiotics. His IV antibiotics were eventually switched to oral antibiotics during his hospital stay he had a rough course with increasing weakness and mental status changes with an episode of acute respiratory distress due to fluid overload because of his systolic congestive heart failure. He was diuresed. He had a neuro event where he became unresponsive and repeat CT scan of his head was done which showed no acute changes. He ultimately responded back to baseline. Patient's care was complicated by his previous significant comorbid conditions. Ultimately the decision was made with the family that he will continue with his care but lean toward comfort. With oral medications. He will be going home with hospice support because of his underlying history of cerebrovascular disease heart disease with a ejection fraction of 20% antiphospholipid antibody syndrome atrial fibrillation recurrent infections and immune compromise due to his rheumatoid arthritis. Exam Vital Signs (past 8 hours): - 09/13/25 00:00 09/13/25 04:00 Pulse Rate 99 H 75 Respiratory Rate 16 16 Blood Pressure 111/66 129/77 Pulse Oximetry 97 95 Oxygen Flow Rate 0 0 Fraction of Inspired Oxygen 28 SaO2/FiO2 Ratio 328 Oxygen Delivery Method Room Air Oxygen Flow Rate 0 Objective Labs 09/11/25 04:50 09/11/25 04:50 Labs: Laboratory Results - last 24 hr 09/12/25 09/12/25 09/12/25 11:44 16:55 20:04 POC Whole Bld Glucose 170 H 299 H D 186 H D 09/13/25 07:28 POC Whole Bld Glucose 150 H [facility] Medical History Acute urinary retention History of CVA (cerebrovascular accident) Myocardial infarct, old (08/09/11) 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 (05/04/13) Other and unspecified hyperlipidemia (08/09/11) DVT (deep venous thrombosis) CHF (congestive heart failure) Atrial fibrillation ILD (interstitial lung disease) Hyperglycemia Controlled insulin dependent diabetes mellitus CVA (cerebral vascular accident) Facial laceration Weakness Acute hyponatremia Rheumatoid arthritis History of stroke with residual deficit Diabetes mellitus Hyperlipidemia Antiphospholipid antibody syndrome Pacemaker Myocardial infarction Systolic heart failure DVT (deep venous thrombosis) CAD (coronary artery disease) Cardiac arrhythmia Chronic systolic congestive heart failure (09/01/15) Hyperlipidemia (09/01/15) Essential hypertension (09/01/15) Coronary artery disease involving [place] coronary artery of [place] heart without angina pectoris (09/01/15) Cerebrovascular accident (CVA) involving left middle cerebral artery territory (09/01/15) Chronic atrial flutter (09/01/15) Hemiparesis affecting dominant side as late effect of cerebrovascular accident (01/27/15) Aphasia following cerebrovascular disease (01/27/15) Stenosis of left carotid artery (12/22/13) Type 2 diabetes mellitus Surgical History AICD (automatic cardioverter/defibrillator) present History of angioplasty Presence of cardiac pacemaker Social History marital status: household members: spouse and caregiver Smoking Status: Never smoker alcohol intake: never substance use type: does not use Discharge Plan Discharge Plan Patient Disposition: Hospice - Home Discharge orders & Medications Prescriptions: Continued cholecalciferol (vitamin D3) 125 mcg (5,000 unit) capsule 125 mcg PO DAILY Qty: 90 0RF tamsulosin 0.4 mg capsule 0.4 mg PO QPM Qty: 90 3RF lisinopril 10 mg tablet 10 mg PO DAILY Qty: 90 3RF dextrose 40 % gel 15 g PO Q15M PRN (Reason: hypoglycemia) Qty: 112.5 1RF Rx Instructions: until symptoms of low blood sugar are controlled methotrexate sodium 2.5 mg tablet 20 mg PO QWEEK Qty: 12 11RF Rx Instructions: tuesdays dabigatran etexilate 150 mg capsule 150 mg PO BID Qty: 180 1RF metformin 1,000 mg tablet 1,000 mg PO BID Qty: 180 3RF lactulose 20 gram packet 20 g PO BID Qty: 60 3RF atorvastatin 20 mg tablet 20 mg PO ONCE PM Qty: 90 3RF sertraline 50 mg tablet See Rx Instructions .ROUTE .COMPLEX Qty: 180 3RF Dose Instruction: TAKE TWO TABLETS (100MG) BY MOUTH DAILY Rx Instructions: TAKE TWO TABLETS (100MG) BY MOUTH DAILY carvedilol 6.25 mg tablet 6.25 mg PO BID Qty: 180 3RF insulin glargine [Lantus Solostar U-100 Insulin] 100 unit/mL (3 mL) insulin pen 20 unit SUBCUT QAM Qty: 15 3RF Humira 40 mg/0.8 mL syringe kit See Rx Instructions SUBCUT .COMPLEX Rx Instructions: inject one - 40 mg/0.8 mL syringe every 2 weeks SUBCUT insulin aspart U-100 [Novolog FlexPen U-100 Insulin] 100 unit/mL (3 mL) insulin pen 5 unit SUBCUT .COMPLEX Qty: 15 3RF Rx Instructions: INJECT SUBCUTANEOUSLY UP TO THREE TIMES DAILY USING SLIDING SCALE. 150-200 1 U;200-250 2 U;250-300 3 U;300-350 4 U;350-400 5 U.; cefdinir 300 mg capsule 300 mg PO BID Qty: 14 0RF multivitamin with minerals Tablet 1 tab PO DAILY Qty: 0 omeprazole 40 mg capsule,delayed release(DR/EC) 40 mg PO DAILY Qty: 60 3RF Discontinued vitamin B complex [B Complex-Vitamin B12] Tablet 1 tab PO DAILY Adult 50 Plus Probiotic 4 billion cell capsule 4,000 mmu cells PO DAILY Rx Instructions: administer with a meal folic acid 1 mg tablet 3 mg PO DAILY Qty: 90 3RF Disabled Parking Permit See Rx Instructions .ROUTE .COMPLEX Qty: 1 0RF Rx Instructions: I find this patient to be medically disabled and qualified for Disabled Parking as indicated, and signed, on the accompanying Disabled Parking Application for Individuals ; glucagon 1 mg/0.2 mL solution 1 mg SUBCUT Q20M PRN (Reason: hypoglycemia) Qty: 0.2 0RF Rx Instructions: until target blood sugar attained No Action (DME) pen needle, diabetic [Droplet Pen Needle] 32 gauge x 3/16 needle See Rx Instructions .ROUTE .COMPLEX Qty: 150 11RF Dose Instruction: USE DIRECTED UP TO 5 TIMES DAILY Rx Instructions: USE DIRECTED UP TO 5 TIMES DAILY (DME) Dexcom G6 Sensor Device See Rx Instructions .Route Qty: 3 11RF Rx Instructions: use to check blood sugar daily as directed (DME) Dexcom G6 Transmitter Device See Rx Instructions .Route Qty: 1 11RF Rx Instructions: Use to test blood sugar daily as directed (DME) Dexcom G6 Stake Setter Misc See Rx Instructions .Route Qty: 1 0RF Rx Instructions: As directed Follow up/Referrals: Delfino Epstein MD [Primary Care Provider, Family Practice] Diet/Activity/Treatments Catheter: 2-way Zhu Visit Report/Discharge Packet Stand Alone Forms: Patient Portal/API, Stroke Signs & Symptoms Discharge Data Primary Care Provider: Delfino Epstein Quality VTE Deep Vein Thrombosis/Pulmonary Embolism Present on Admission: No [facility]H PROFEE Charge Codes Discharge inpatient/observation: [id number]
[2025-09-13 08:00] VITALS: BP 111/58; PULSE 70; RESP 15; TEMP 36.2; O2SAT 96
[2025-09-13] MEDS: INSULIN GLARGINE 100 UNIT/ML 3ML PEN 20 UNIT SUBCUT (08:16)
[2025-09-13] MEDS: INSULIN LISPRO 100 UNIT/ML 3ML VIAL SUBCUT ×2 (08:20→12:31)
[2025-09-13] MEDS: SENNOSIDES 8.6 MG TABLET 17.2 MG PO (08:59)
[2025-09-13] MEDS: CEFDINIR 300 MG CAPSULE PO (08:59)
[2025-09-13] MEDS: DABIGATRAN 75 MG CAPSULE 150 MG PO (09:00)
[2025-09-13] MEDS: DOCUSATE 100 MG CAPSULE 200 MG PO (09:00)
[2025-09-13] MEDS: TAMSULOSIN 0.4 MG CAPSULE PO (09:00)
[2025-09-13] MEDS: SODIUM CHLORIDE 0.9% FLUSH 10 ML IV (09:01)
--- NOTE | 2025-09-13 09:11 | CM.DPC ---
DCP Discharge Home with Hospice Per MD, pt medically stable to d/c home today with family and [facility] to start this week and met bedside with pt, spouse, and Dtr. Discharge orders completed. Signed updated POLST form. SW called [facility] and spoke to Dionne who confirms that DME was delivered to the home on 09/11 and aware if family requesting keven then their Automatic Typewriter Inspector would need to approve asbestos pipe supervisor to assess pt and family for keven at SOC this week. Updated that pt discharging home today and faxed d/c summary to review. Met bedside with pt, spouse, and Dtr and they confirm they remain in agreement with d/c home today and they will call Hospice to inquire about keven and maybe bed lemons type items and see what could be delivered and what they would need to pay for out of pocket. Family getting sheets for hospital bed today and doing final coordination and hopeful that pt can have bm prior to discharge since he has been requiring keven lift with staff. Therefore plan of afternoon discharge for safest d/c to home. Spouse confirms no stairs to enter and they will need ambulance transport and aware of potential cost. SW called [facility] and scheduled 1500 transport time and BLS form previously completed, attached facesheet and updated POLST form and gave spouse original POLST to take home. Updated manager dairy, BOX MAKER WOOD, and RN. Plan: Patient to d/c home today via [facility] at 1500 with [facility] to do SOC likely on 09/15. СВЕТЛАНА Aponte
[2025-09-13 11:57] VITALS: O2SAT 100
[2025-09-13 14:35] VITALS: PULSE 66; O2SAT 94
--- NOTE | 2025-09-13 18:36 | PC.NURSE ---
Patient discharged to home on hospice around 1500. Discharge paperwork gone over with .
== END 2025-09-13 15:00 | disposition hospice, home (50) | DRG 871 ==
LOC: ED 03:51 → AC 05:25
PROVIDERS: Family Medicine; Admitting Provider Internal Medicine; Emergency Provider Student in an Organized Health Care Education/Training Program; PCP Family Medicine; Referring Provider Student in an Organized Health Care Education/Training Program; Visit Provider Family Medicine
DX: A41.9 Sepsis, unspecified organism (principal); G93.41 Metabolic encephalopathy; I50.23 Acute on chronic systolic (congestive) heart failure; J96.01 Acute respiratory failure with hypoxia; N39.0 Urinary tract infection, site not specified; D68.61 Antiphospholipid syndrome; I69.351 Hemiplegia and hemiparesis following cerebral infarction affecting right dominant side; E87.1 Hypo-osmolality and hyponatremia; A08.11 Acute gastroenteropathy due to Norwalk agent; R17 Unspecified jaundice; J84.9 Interstitial pulmonary disease, unspecified; D84.821 Immunodeficiency due to drugs; E44.1 Mild protein-calorie malnutrition; Z16.24 Resistance to multiple antibiotics; B96.5 Pseudomonas (aeruginosa) (mallei) (pseudomallei) as the cause of diseases classified elsewhere; Z66 Do not resuscitate; I11.0 Hypertensive heart disease with heart failure; E11.65 Type 2 diabetes mellitus with hyperglycemia; I48.0 Paroxysmal atrial fibrillation; I25.10 Atherosclerotic heart disease of native coronary artery without angina pectoris; M06.9 Rheumatoid arthritis, unspecified; I69.320 Aphasia following cerebral infarction; Z79.01 Long term (current) use of anticoagulants; Z95.810 Presence of automatic (implantable) cardiac defibrillator; R33.9 Retention of urine, unspecified; Z88.1 Allergy status to other antibiotic agents; Z88.5 Allergy status to narcotic agent; Z88.0 Allergy status to penicillin; Z88.8 Allergy status to other drugs, medicaments and biological substances; I25.2 Old myocardial infarction; J47.9 Bronchiectasis, uncomplicated; Z79.620 Long term (current) use of immunosuppressive biologic; Z79.4 Long term (current) use of insulin; K59.00 Constipation, unspecified; N40.1 Benign prostatic hyperplasia with lower urinary tract symptoms; Z68.25 Body mass index [BMI] 25.0-25.9, adult
CPT/HCPCS: 36415; 36600; 70450; 70496; 70498; 71045; 72192; 74177; 80048; 80053; 81001; 82805; 82962; 83036; 83605; 83690; 83735; 83880; 84484; 85025; 85610; 85730; 87040; 87077; 87086; 87186; 87493; 87507; 87633; 92526; 92610; 93005; 93010; 93306; 94760; 94762; 96365; 96368; 96375; 99284; J0131; J0692; J1160; J1171; J1815; J1938; J2060; J2185; J2405; J3374; J3375; J3475; J7030; J7050; Q9967